=== PATIENT | male | born 1950 | race Caucasian/White ===

== ENCOUNTER 2020-05-18 09:08 | Emergency (ER) | payer MEDICARE, BC, SELFPAY ==
--- NOTE | 2020-05-18 09:08 | W.ED.GENAD ---
Discharge Plan Disposition Patient Disposition: HOME Condition: Good Discharge Details Chief Complaint: Orthopedic Clinical Impression: Rupture of left quadriceps tendon Primary Care Provider: Jovon Sifuentes ED Provider: Neelima Martin Home Meds and New Rx's Prescriptions: New oxycodone 5 mg tablet 5 mg PO TID PRN (Reason: pain) Qty: 7 RF: 0 Continued acetaminophen [Tylenol] 325 MG tablet 650 mg PO Q6H PRN RF: 0 tamsulosin [Flomax] 0.4 MG capsule 0.4 mg PO DAILY RF: 0 aspirin [Aspirin Low-Strength] 81 MG tablet,chewable 81 mg PO DAILY RF: 0 [id number] with vit D 1 EACH tablet 1 tab PO DAILY RF: 0 Eliquis 5 MG tablet 5 mg PO BID 30 Days RF: 0 Discharge Instructions Instructions: Tendon Rupture (ED) Additional Instructions: Please encourage rest, ice, elevation. You may use Tylenol to help with discomfort. If this is unsuccessful at alleviating your discomfort, you may augment with the oxycodone as prescribed. Please take this only as prescribed and do not drive will take this medicine. Please continue to use the knee immobilizer and use the walker to keep as much pressure off of this leg as possible. If you have any new or worsening symptoms please seek care urgently once again. Otherwise, please call orthopedics Wednesday to schedule follow-up appointment. Referrals: Gerald Plata MD [ [facility] STAFF PHYSICIAN] - Jovon Sifuentes MD [Primary Care Provider] - Medical Decision Making Patient is a pleasant 69-year-old male presenting to chief complaint of right shoulder and left knee pain. Patient reports a prior to arrival he was looking at his Josy when he missed stepped and fell down 4 steps. States that he struck the right elbow which caused his right shoulder to jam upward and also suffered a rotational injury to the left knee. Patient reports that he had the right shoulder injected with cortisone 3 days ago for presumed rotator cuff tear. He states that the pain he is experiencing today is very similar to the pain he had prior to the injection. Indicates the posterior aspect of his shoulder is area of pain. He denies any numbness or tingling. While there is ecchymosis on the medial aspect of his elbow he denies any pain in that area. In regard to the left knee, patient reports that this feels exactly the same as when he ruptured the quadriceps tendon on the contralateral side. Has not been able to extend his knee since the incident. Has been able to weight-bear but is found crutches report helpful. Again, he denies any numbness or tingling. Patient denies other injury the time of the incident. Not strike his head, no LOC, denies neck or back pain. No chest, abdomen, pelvis pain. Past medical history pertinent for A. fib, arthritis, BPH, TIA, hyperlipidemia, KORI. On exam, patient is resting comfortably. Exam of the right shoulder significant for limited range of motion with forward elevation. 2+ distal pulses, actually nerve testing is intact, sensation is intact. I am unable to perform provocative testing of the rotator cuff secondary to pain at this point. Will obtain x-ray to evaluate for any abnormality. Patient does have ecchymosis on the medial aspect of the right elbow but otherwise, exam is within normal limits and I do not see any evidence of fracture of the right elbow. Regard to left knee, patient has notable effusion that seems to be primarily suprapatellar. Patient is unable to straight leg raise. He has 2+ distal pulses, sensation is intact. Is able to flex and extend at the ankle. He is ligamentously intact with varus, valgus, anterior posterior drawer testing. Unable to flex past 80 degrees secondary to pain in the suprapatellar region. Will obtain x-rays of both areas demonstrate a fall. Patient did take Tylenol prior to arrival. He is anticoagulated for history of PE. We will augment his Tylenol with oxycodone. I do not see evidence of knee dislocation at this time. XR reviewed by radiologist: FINDINGS: Bones/joints: There is no evidence of acute fracture.There is no evidence of malalignment or dislocation. Degenerative changes in the glenohumeral joint and acromioclavicular joint Well corticated avulsion fracture adjacent to the humeral head Soft tissues: Normal. IMPRESSION: There is no evidence of acute fracture.There is no evidence of malalignment or dislocation. FINDINGS: Bones/joints: There is no evidence of acute fracture.There is no evidence of malalignment or dislocation. Chondrocalcinosis in the medial and lateral compartments Osteophyte formation of the superior and inferior pole of patella. The inferior osteophyte has been fractured. This could indicate patellar tendon injury in the appropriate clinical setting. Soft tissues: There is increased soft tissue density and swelling superior to the patella on the lateral. There is disruption of the normal architecture of the soft tissue. This may represent quadriceps tendon rupture. MRI may be helpful for further evaluation. IMPRESSION: 1. There is increased soft tissue density and swelling superior to the patella on the lateral. There is disruption of the normal architecture of the soft tissue. This may represent quadriceps tendon rupture. MRI may be helpful for further evaluation. 2. Osteophyte formation of the superior and inferior pole of patella. The inferior osteophyte has been fractured. This could indicate patellar tendon injury in the appropriate clinical setting. 3. There is no evidence of acute fracture.There is no evidence of malalignment or dislocation. Discussed these findings with the patient. Also contacted the patient's at his request. Patient has had bilateral Achilles tendon ruptures, contralateral quadricep tendon rupture. Patient will be fitted with a knee immobilizer. He was using crutches initially but states that this really exacerbates his shoulder pain. He does have a walker at home if he continues to remain nonweightbearing. Encourage rest, ice, elevation. He will continue with Tylenol as needed for discomfort. I will give a few oxycodone to use as needed for pain although patient has having that Tylenol will be sufficient. We discussed the risk associated with this medication, he will take only as prescribed will not drive will take this medicine. Can I also discussed Tammy testing. Has this patient will need to undergo surgical intervention, and has traveled to [place] recently, I feel that COVID-19 testing is appropriate at this time. He was given return precautions. All of his questions and concerns were addressed and he is in agreement this plan. HPI General Mode of arrival: wheelchair. Date/Time Provider Initiated Documentation: 05/18/20 09:08. Limitations to Documentation: no limitations. Information obtained by: patient and RN notes reviewed. History of Present Illness 69 year old M presents to the emergency department with the chief complaint of right shoulder and left knee pain, described as severe, with intensity rated at 8. Quality is described as aching, and is localized to the upper extremity (right shoulder) and lower extremity (left anterior knee). Patient reports no radiation. Patient started experiencing this minute(s) and it has been constant. Immobilization improves symptom(s), Movement worsens symptoms . Patient notes no other symptoms.. Patient did receive the following treatments prior to arrival, other (tylenol) Related Data Home Medications Medication Instructions Recorded Confirmed acetaminophen [Tylenol] 650 mg PO Q6H PRN tab-cap 04/08/15 05/18/20 aspirin [Aspirin Low-Strength] 81 mg PO DAILY tab-cap 04/08/15 05/18/20 tamsulosin [Flomax] 0.4 mg PO DAILY tab-cap 04/08/15 05/18/20 Eliquis 5 mg PO BID 30 Days tablet 03/29/17 05/18/20 [id number] with vit D 1 tab PO DAILY 03/29/17 05/18/20 oxycodone 5 mg PO TID PRN #7 tab 05/18/20 Previous Rx's Medication Instructions Recorded Eliquis 5 mg PO BID 30 Days tablet 03/29/17 oxycodone 5 mg PO TID PRN #7 tab 05/18/20 Allergies Allergy/AdvReac Type Severity Reaction Status Date / Time clindamycin AdvReac Unverified 05/18/20 09:18 ibuprofen AdvReac Unverified 05/18/20 09:18 Review of Systems Constitutional Constitutional: Reports as per HPI, Denies chills, Denies fatigue, Denies fever(s), Denies headache(s) and Denies weakness Eyes Eyes: Reports as per HPI, Denies blurry vision, Denies change in vision and Denies loss of vision ENT Ears, Nose, Mouth, and Throat: Denies abnormal hearing and Denies headache(s) Cardiovascular Cardiovascular: Reports as per HPI, Denies chest pain and Denies dyspnea Respiratory Respiratory: Reports as per HPI, Denies cough, Denies pain on inspiration, Denies pain with cough and Denies dyspnea Gastrointestinal Gastrointestinal: Reports as per HPI, Denies abdominal pain, Denies nausea and Denies vomiting Genitourinary Genitourinary: Reports as per HPI and Denies urinary incontinence Musculoskeletal Musculoskeletal: Reports as per HPI and Reports abnormal gait (difficulty with ambulation secondary to knee pain, using crutches) Integumentary/Breasts Skin/Breast: Reports as per HPI and Reports unusual bruising (ecchymosis right elbow) Neurologic Neurologic: Reports as per HPI, Denies abnormal hearing, Denies abnormal movements, Denies abnormal speech, Reports abnormal gait (difficulty with ambulation secondary to knee pain, using crutches), Denies headache(s), Denies lack of coordination, Denies localized weakness, Denies loss of vision, Denies seizure-like activity, Denies paresthesias and Denies weakness Endocrine Endocrine: Denies fatigue [facility] Social History Smoking/Tobacco Use Status: Former Tobacco Use Alcohol Intake: current Alcohol Intake frequency: a few times a week Drug use: Never Do you feel safe at home: Yes Do you feel safe in your relationship?: Yes Exam Const General: cooperative, healthy appearing, uncomfortable (uncomfortable with movement of LLE), no acute distress, well developed and well groomed Nutritional Appearance: well nourished and overweight Orientation: alert, awake and oriented x3 HENMT Head: normal to inspection, no palpable skull fracture, normocephalic and atraumatic Ears: hearing grossly normal bilaterally, external ears normal and TM's normal bilaterally General nose exam: external nose normal Mouth: oral mucosae normal, lip normal and tongue normal Throat: posterior oropharynx normal Eyes General: appearance normal, both eyes and all related structures Visual Lemon: normal visual lemon by confrontation Alignment and Position: alignment normal Periorbital: periorbital findings normal Eyelids: eyelids normal Conjunctivae: conjunctivae normal Pupils: PERRL EOM: EOM intact bilaterally Neck Neck: normal visual inspection, full ROM, no lymphadenopathy, no meningeal signs, trachea midline and supple Chest Chest: normal inspection of the chest, normal palpation of entire chest wall, no crepitus and no localized rib tenderness Resp Effort & Inspection: normal respiratory effort, able to speak in complete sentences and no respiratory distress Auscultation: clear to auscultation bilaterally, no rales, no rhonchi and no wheezes Cardio Rate: regular rate Rhythm: regular rhythm Heart Sounds: S1 normal and S2 normal GI Inspection: normal to inspection, no abdominal wall ecchymosis, no edema and non-distended Palpation: soft, no hepatosplenomegaly, not firm, no guarding, no pulsatile masses, not rigid and nontender Back/Spine/Pelvis Back: no CVA tenderness Cervical Spine: normal cervical lordosis and cervical ROM normal Thoracic/Lumbar Spine: thoracic and lumbar spine normal to inspection, thoraco-lumbar ROM normal, No thoraco-lumbar ROM limited, No thoraco-lumbar spasm and No thoracic spinal tenderness Pelvis: no pain with anterior-posterior compression and no pain with lateral compression Skin General skin exam: ecchymosis (right medial elbow, no pain over this area) Neuro General: patient alert, patient awake, patient oriented x3, gait normal, tone normal and moves all extremities Cranial Nerves: CN's II-XI intact bilaterally Cognition: normal cognition Speech: speech normal Gait: antalgic Motor: muscle tone normal throughout Sensory Exam: no sensory deficits noted (no saddle paresthesias) Extrem General: no pedal edema and no calf tenderness Right upper extremity: normal to inspection, normal capillary refill, no joint enlargement, shoulder/upper arm Details: normal to inspection, tenderness (posterior) and axillary nerve sensory function normal; no swelling, ROM limited (full ER and IR, FE limited to 90), no ecchymosis, no crepitus, no penetrating wound, no deformity and no unusual warmth, elbow/forearm Details: normal to inspection, normal ROM, ecchymosis and distal pulses intact; no tenderness, no swelling and no deformity, wrist Details: normal to inspection, normal ROM, normal vascular exam and radial pulse present; no tenderness and no swelling and hand Details: normal to inspection, normal capillary refill, neuromotor exam normal, neurosensory exam normal, normal ROM of fingers and no swelling; ROM limited Left lower extremity: normal capillary refill, hip/thigh Details: normal to inspection; no tenderness and no swelling and knee Details: abnormal to inspection Details: with a suprapatellar bulge (effusion), tenderness Location: of the patella Details: superiorly, swelling Location: of the patella, abnormal ROM Details: pain with passive ROM Details: with flexion and with range as follows (full extension, flexion to 80), knee ligament exam normal Details: anterior drawer test normal, posterior drawer test normal, valgus stress test normal and varus stress test normal; pain with axial loading and Iker's Test (unable to preform); inspection abnormal, no abrasions, no lacerations, no ecchymosis, no crepitus, no penetrating wound and no deformity; abnormal to inspection and abnormal ROM Psych Appearance: grossly normal and well kempt Mental Status: mental status grossly normal Speech and Movement: speech and movement normal
[2020-05-18 09:13] VITALS: BP 137/71; PULSE 71; RESP 18; TEMP 36.8; O2SAT 97
--- NOTE | 2020-05-18 09:30 | DI.RAD_ITS ---
EXAM: XR KNEE LT 4V AP,LAT,LIBBY,PAT CLINICAL HISTORY: fall, ? quad tendon rupture TECHNIQUE: COMPARISON: CR RIGHT KNEE LIMITED 1 OR 2 VIEW from 08/11/2016 FINDINGS: Four views were obtained. Note is made chondrocalcinosis of the tibiofemoral joints. There is marke d narrowing of the patellofemoral joint cartilaginous joint space consistent with degenerative change . There is no evidence of acute fracture. There is marked soft tissue swelling this superior to the patella on the lateral view with very poorl y defined quadriceps contour. The findings, in appropriate clinical setting, are suspicious for quad riceps tendon rupture. Additional evaluation with MRI may be considered. IMPRESSION:
--- NOTE | 2020-05-18 09:30 | DI.RAD_ITS ---
EXAM: XR SHOULDER RT COMPLETE 2+V CLINICAL HISTORY: fall TECHNIQUE: COMPARISON: No exams were available for comparison FINDINGS: Five views were obtained. There is no evidence of acute fracture or dislocation. There are prominen t hypertrophic degenerative changes involving acromioclavicular and glenohumeral joints. IMPRESSION:
[2020-05-18] MEDS: oxyCODONE 5 MG TAB PO (09:54)
--- NOTE | 2020-05-18 09:54 | NUR.NOTE ---
assessment and education charted by Dotty Harrington, diane Queen
--- NOTE | 2020-05-18 10:26 | DI.VRAD_ITS ---
PROCEDURE INFORMATION: Exam: XR Right Shoulder Exam date and time: 05/18/2020 10:22 AM Age: 69 years old Clinical indication: Other: Fall TECHNIQUE: Imaging protocol: XR Right shoulder. Views: 2 or more views. COMPARISON: No relevant prior studies available. FINDINGS: Bones/joints: There is no evidence of acute fracture.There is no evidence of malalignment or dislocation. Degenerative changes in the glenohumeral joint and acromioclavicular joint Well corticated avulsion fracture adjacent to the humeral head Soft tissues: Normal. IMPRESSION: There is no evidence of acute fracture.There is no evidence of malalignment or dislocation. Dictated and Authenticated by: Vanessa Garcia MD. Ordering:QUENTIN Ortez MD
--- NOTE | 2020-05-18 10:29 | DI.VRAD_ITS ---
PROCEDURE INFORMATION: Exam: XR Left Knee Exam date and time: 05/18/2020 10:22 AM Age: 69 years old Clinical indication: Other: Fall, ? quad tendon rupture TECHNIQUE: Imaging protocol: XR Left knee. Views: 4 or more views. COMPARISON: No relevant prior studies available. FINDINGS: Bones/joints: There is no evidence of acute fracture.There is no evidence of malalignment or dislocation. Chondrocalcinosis in the medial and lateral compartments Osteophyte formation of the superior and inferior pole of patella. The inferior osteophyte has been fractured. This could indicate patellar tendon injury in the appropriate clinical setting. Soft tissues: There is increased soft tissue density and swelling superior to the patella on the lateral. There is disruption of the normal architecture of the soft tissue. This may represent quadriceps tendon rupture. MRI may be helpful for further evaluation. IMPRESSION: 1. There is increased soft tissue density and swelling superior to the patella on the lateral. There is disruption of the normal architecture of the soft tissue. This may represent quadriceps tendon rupture. MRI may be helpful for further evaluation. 2. Osteophyte formation of the superior and inferior pole of patella. The inferior osteophyte has been fractured. This could indicate patellar tendon injury in the appropriate clinical setting. 3. There is no evidence of acute fracture.There is no evidence of malalignment or dislocation. Dictated and Authenticated by: Vanessa Garcia MD. Ordering:QUENTIN Ortez MD
[2020-05-18 11:14] VITALS: BP 94/69; PULSE 63; RESP 16; O2SAT 99
--- NOTE | 2020-05-18 11:14 | NUR.NOTE ---
L knee immobilizer applied and assisted pt getting dressed.
[2020-05-20 14:45] LABS: COVID-19 RT-PCR Result NEGATIVE (Negative)
--- NOTE | 2020-05-21 14:09 | NUR.NOTE ---
Nursing Note: Attempted to call patient to notify of negative covid results- no answer, unable to leave message.
--- NOTE | 2020-05-23 16:05 | NUR.NOTE ---
PT was notified that there covid test was negative Nursing Note:
== END 2020-05-18 11:21 | disposition home or self-care (01) ==
PROVIDERS: Emergency Provider Physician Assistant; PCP Internal Medicine
DX: S76.112A Strain of left quadriceps muscle, fascia and tendon, initial encounter (principal); M25.511 Pain in right shoulder; W10.8XXA Fall (on) (from) other stairs and steps, initial encounter; X50.9XXA Other and unspecified overexertion or strenuous movements or postures, initial encounter; Z79.01 Long term (current) use of anticoagulants; I48.91 Unspecified atrial fibrillation; Z11.59 Encounter for screening for other viral diseases
CPT/HCPCS: 29505; 99284; U0003; 73030; 73564; L1830

== ENCOUNTER → 2020-05-20 13:28 | Outpatient (BNVA) | payer MEDICARE, BC, SELFPAY | PROVIDERS: PCP Internal Medicine; Referring Provider Internal Medicine; Visit Provider Student in an Organized Health Care Education/Training Program | DX: S76.112A Strain of left quadriceps muscle, fascia and tendon, initial encounter (principal); S46.011A Strain of muscle(s) and tendon(s) of the rotator cuff of right shoulder, initial encounter; W10.8XXA Fall (on) (from) other stairs and steps, initial encounter; M17.12 Unilateral primary osteoarthritis, left knee | CPT/HCPCS: 99205; 99215; L1833 ==

== ENCOUNTER 2020-05-23 06:11 | Day surgery (SDC) | payer MEDICARE, BC, SELFPAY ==
[2020-05-23] VITALS (9 sets, daily range): BP systolic 111–137; BP diastolic 67–91; PULSE 51–60; RESP 13–22; TEMP 35.9–36.5; O2SAT 95–99
[2020-05-23] MEDS: Lactated Ringers 1,000 ML 100 ML IV (06:51)
[2020-05-23] MEDS: ceFAZolin 3,000 MG in Normal Saline 100 ML 200 MG IVPB (07:40)
[2020-05-23] MEDS: Normal Saline 20 ML VIAL (10:04)
--- NOTE | 2020-05-23 11:04 | PDOC.DSDIS_ITS ---
Discharge Plan Disposition Patient Disposition: HOME Condition: Stable Discharge Details Reason For Visit: L QUADRICEPS TENDON REPAIR Attending Provider: Gerald Plata Primary Care Provider: Jovon Sifuentes Home Meds and New Rx's Prescriptions: New tramadol 50 mg Tablet 50 mg PO Q8H PRN PRN (Reason: severe pain) Qty: 12 RF: 0 Continued tadalafil [Cialis] 10 mg tablet 10 mg PO DAILY PRNRF: 0 acetaminophen [Tylenol] 325 MG tablet 650 mg PO Q6H PRN RF: 0 tamsulosin [Flomax] 0.4 MG capsule 0.4 mg PO DAILY RF: 0 Suclblsi-Ahnpyq-[id number] with vit D 1 EACH tablet 1 tab PO DAILY RF: 0 Eliquis 5 MG tablet 5 mg PO BID 30 Days RF: 0 Discontinued oxycodone 5 mg tablet 5 mg PO TID PRN (Reason: pain) Qty: 7 RF: 0 Discharge Instructions Additional Instructions: Surgery: Left quadriceps tendon repair Activity: Weightbearing as tolerated with brace locked in full extension only for 8 weeks. Recommend crutches or walker to minimize fall risk. A physical therapy prescription will be provided separately today. Rehab protocol: Weeks 0-2: Maintain knee in full extension at all times. Isometric only quad contractions. No active knee extension for 6 weeks. Weeks 2-6: Brace unlocked for ROM exercises. Start at 0-30 degrees. Passive only knee extension (using other leg). Advance flexion 15 degrees per week with goal of 90 degrees flexion around week 6. After week 6: Start active-assisted then active knee extension around week 8; advance to full flexion by week 12. Concentric quad strengthening at 3 months (08/23/20) Eccentric quad strengthening at 4 months (09/23/20) Prescriptions: Resume home dose Eliquis tomorrow morning (Wednesday05/24/20) Tramadol 50 mg take 1 every 8 hours as needed for severe pain You may use [id number] Tylenol (acetaminophen) as needed for mild to moderate pain. These pain medications may be taken all at once or in different combinations as needed. Also, recommend Colace (docusate) as a stool softener as surgery and pain medicine cause constipation. Dressings: May remove Everton wrap and cotton wrap after 3 days. Leave Band-Aid in place until follow-up. Keep clean and dry at all times. Follow-up: 10-14 days with a physician dairy and food laboratory assistant and [address] Plata Please call the office during business hours with any questions or concerns. Let us know right away if you develop any redness, drainage, fevers, chest pain, or trouble breathing. Do not drink alcohol or drive for at least 24 hours after anesthesia. Referrals: Gerald Plata MD [ [facility] STAFF PHYSICIAN] - Discharge Orders Discharge Orders: Discharge Order (Routine); Ordered 05/23/20 Ordered By: Gerald Plata DS: Diagnosis Discharge Diagnosis (1) Rupture of left quadriceps tendon: Status: Acute
[2020-05-23] MEDS: HYDROmorphone 2 MG/ML VIAL IVP ×3 (11:15→11:36)
--- NOTE | 2020-05-23 11:22 | W.PM.OP ---
Date of service: 05/23/20 Time of Service: 11:04 Operative Note Operative Note DATE OF PROCEDURE: 05/23/20 PRE-OP DIAGNOSIS: Left quadriceps tendon rupture POST-OP DIAGNOSIS: same PROCEDURE: Left quadriceps tendon repair, CPT # 53378 SURGEON: Gerald Plata FOOD SERVICE ATTENDANT: Lakeshia Valencia ANESTHESIA: local and spinal ESTIMATED BLOOD LOSS: 50 PATHOLOGY: none sent TOURNIQUET TIME: 0 COMPLICATIONS: None Patient was transported to: PACU Patient's condition: stable Implants: 2x 4.75mm Arthrex SwiveLock suture anchors Indications: Please see complete medical record for details. Findings: Complete quadriceps tendon rupture with significant involvement of the medial and lateral retinaculum. Intact patellar tendon. Procedure Description: In the operating room, spinal anesthesia was induced. The patient was positioned supine on the operating room table. All bony prominences were well-padded. A tourniquet was placed loosely over padding high on the ipsilateral thigh. Preoperative antibiotics were administered. The left knee was prepped and draped in the usual sterile fashion. The correct patient, procedure, and side of the procedure were all verified prior to incision. The injury site was pre-injected with 30 cc of 0.25% bupivacaine with epinephrine. A longitudinal incision was made centered over the superior pole of the patella bridging the palpable defect in the quad tendon and for a few centimeters proximal. Sharp dissection was carried down to the level of the obvious quadriceps tendon rupture. Appropriate hemostasis was achieved. Frayed and scar tissue was removed bluntly and sharply from the injury site at the distal quad tendon and the medial and lateral margins. The superior pole the patella was cleaned of fibrous debris maintaining cortical bone and strong superior, medial and lateral remnant tissue to confirm appropriate quadriceps tendon reduction and for later repair augmentation. The quadriceps tendon was freed up of adhesions superficially and deeply bluntly. A Kayla clamp confirmed excellent excursion of the quadriceps tendon. The Arthrex pars jig was used to percutaneously place a proximal locking suture tape. A fiber tape was placed by hand in a Krak?w locking fashion more distally. Free ends of each suture tape and fiber tape were then brought out medially and laterally and centrally at the level of the rupture. Provisional traction on the sutures confirmed anatomic reduction to the oblique tears in the medial lateral retinaculum. The superior cleared off bone of the patella was then marked at the appropriate levels with a approximately 1 cm bone bridge for suture anchor placement. Taking care to direct the suture anchors centrally down the patella they were predrilled and then tapped at appropriate level. Medial sutures were used to reduce the tendon to the patella while the lateral sutures were passed through the eyelet of the suture anchor and secured me the suture anchor into bone with excellent purchase and fixation strength. With the tendon reduced, the medial suture anchor was then used to secure the medial sutures with again excellent fixation strength. The suture anchors were tested vigorously with no movement or loosening from bone. The lateral suture anchor eyelet #2 FiberWire sutures were then used to place a ripstop mattress suture in the distal lateral tendon. This was repeated for the medial suture anchor eyelet #2 FiberWire as well. Pair was provisionally tested to 90 degrees of flexion and there was minimal gapping however the lateralmost #2 FiberWire that had just been placed pulled out of the center of the swivel lock eyelet. The anchor remained firmly in place with its respective suture tape and fiber tape. There must of been a failure from the eyelet inside the suture anchor. The knots and #2 FiberWire were intact to tendon. This was cut and removed. A #2 FiberWire was used to place a similar ripstop horizontal mattress suture from the quadriceps tendon to strong intact periosteal and proximal remnant quadriceps tendon. The #2 FiberWire was also used to repair the strong retinacular, quadriceps tendon, and periosteal tissue adjacent to the suture anchors, superficially and immediately medially and laterally in a kbcjpx-hq-stfij interrupted fashion. The repair was tested again to almost 90 degrees flexion and found to be strong with no gapping and no suture anchor or suture failure. The needle and lateral gutters quadriceps tendon and retinacular repair was completed with #2 FiberWire and 0 Ethibond interrupted [id number] sutures. The wound was copiously irrigated with normal saline. An Exparel injection containing 20 cc of 266 mg liposomal bupivacaine diluted with 40 cc normal saline was then infiltrated about the surgical area. Deep tissue was closed using 0 Vicryl in a buried interrupted fashion. Superficial layers were irrigated with normal saline. Subcutaneous tissue was closed using 2-0 Monocryl in a buried interrupted fashion. Subcuticular layer was closed using 3-0 Monocryl in a running fashion. Skin glue was applied over the incision allowed to dry and then a Mepilex Band-Aid was applied. The knee was wrapped with sterile soft roll followed by nonsterile soft roll and Everton wrap from the foot up through the leg knee and thigh. Patient's previously obtained hinged knee brace was applied and adjusted to fit appropriately and locked in full extension. Flexion was set from 0 to 30 degrees maximum so that if it became unlocked by chance it would not allow too much flexion in his immediate postoperative period. The patient awoke from anesthesia without complication and was transferred to the recovery room in a stable condition.
[2020-05-23] MEDS: oxyCODONE 5 MG TAB PO (12:13)
== END 2020-05-23 14:10 | disposition home or self-care (01) ==
PROVIDERS: PCP Internal Medicine; Visit Provider Student in an Organized Health Care Education/Training Program
PROC: (CPT 27385; principal; 2020-05-23 07:30)
DX: S76.112A Strain of left quadriceps muscle, fascia and tendon, initial encounter (principal); W10.9XXA Fall (on) (from) unspecified stairs and steps, initial encounter; Z79.01 Long term (current) use of anticoagulants; I48.91 Unspecified atrial fibrillation
CPT/HCPCS: 27385; J0690; J2001; J2250; J2405; J2704; J3010

== ENCOUNTER → 2020-06-18 07:59 | Outpatient (BNVA) | payer MEDICARE, BC, SELFPAY | PROVIDERS: PCP Internal Medicine; Referring Provider Internal Medicine; Visit Provider Student in an Organized Health Care Education/Training Program | DX: S76.112D Strain of left quadriceps muscle, fascia and tendon, subsequent encounter (principal); X58.XXXD Exposure to other specified factors, subsequent encounter ==

== ENCOUNTER → 2020-07-16 08:30 | Outpatient (BNVA) | payer MEDICARE, BC, SELFPAY | PROVIDERS: PCP Internal Medicine; Referring Provider Internal Medicine; Visit Provider Student in an Organized Health Care Education/Training Program | DX: S76.112D Strain of left quadriceps muscle, fascia and tendon, subsequent encounter (principal); S46.011D Strain of muscle(s) and tendon(s) of the rotator cuff of right shoulder, subsequent encounter; X58.XXXD Exposure to other specified factors, subsequent encounter; M17.12 Unilateral primary osteoarthritis, left knee; Z98.890 Other specified postprocedural states ==

== ENCOUNTER 2020-07-30 18:46 | Outpatient (REF) | payer MEDICARE, BC, SELFPAY ==
[2020-07-30 22:00] LABS: Anion Gap 9.5 mmol/L (3-11); BUN 18 mg/dL (7-18); CO2 27.5 mmol/L (21.0-32.0); CREATININE 1.19 mg/dL (0.70-1.30); Calcium 9.6 mg/dL (8.5-10.1); Chloride 105 mmol/L (98-107); FREE T4 1.05 ng/dL (0.76-1.46); Glucose 83 mg/dL (74-106); Potassium 4.2 mmol/L (3.5-5.1); Sodium 142 mmol/L (136-145); TSH 6.67 uIU/mL (0.36-3.74)
[2020-07-31 20:00] LABS: PSA, Screening 4.5 ng/mL (0.0-6.5)
== END 2020-07-30 19:06 ==
LOC: NCHCN 18:46
PROVIDERS: PCP Internal Medicine; Visit Provider Internal Medicine
DX: E03.9 Hypothyroidism, unspecified (principal); N40.0 Benign prostatic hyperplasia without lower urinary tract symptoms; Z12.5 Encounter for screening for malignant neoplasm of prostate
CPT/HCPCS: 80048; 84153; 84439; 84443

== ENCOUNTER → 2020-08-20 09:28 | Outpatient (BNVA) | payer MEDICARE, BC, SELFPAY | PROVIDERS: PCP Internal Medicine; Referring Provider Internal Medicine; Visit Provider Student in an Organized Health Care Education/Training Program | DX: S46.011D Strain of muscle(s) and tendon(s) of the rotator cuff of right shoulder, subsequent encounter (principal); S76.112D Strain of left quadriceps muscle, fascia and tendon, subsequent encounter; X58.XXXD Exposure to other specified factors, subsequent encounter | CPT/HCPCS: 99214 ==

== ENCOUNTER 2020-08-29 02:14 | Outpatient (CLI) | payer MEDICARE, BC, SELFPAY ==
--- NOTE | 2020-08-29 06:30 | DI.MRI_ITS ---
EXAM: MR UPPER JOINT RT WO CLINICAL HISTORY: Traumatic RCT,S46.011D. TECHNIQUE: Multiplanar multisequence MRI was performed. COMPARISON: CR,XR XR SHOULDER RT COMPLETE 2+V from 05/18/2020 FINDINGS: There is spurring at the AC joint which also shows fluid. There is fluid in the subacromial subdelt oid bursa as well as subcoracoid bursa. There is a full-thickness tear with retraction of the supras pinatus tendon to the level of the glenoid. Infraspinatus tendon is also torn and retracted to the l evel of the glenoid. There is approximately 50 percent muscular atrophy both supraspinatus and infra spinatus, Glutilia classification grade 3. The infraspinatus and subscapularis as well as biceps tend ons appear intact. There are degenerative changes at the glenohumeral joint and spurring of the grea ter and lesser tuberosities. IMPRESSION: Full-thickness tears with retraction of the supraspinatus and infraspinatus tendons as well as muscul ar atrophy. DATA REPOSITORY:
== END 2020-08-29 02:34 ==
PROVIDERS: PCP Internal Medicine; Visit Provider Student in an Organized Health Care Education/Training Program
DX: M75.121 Complete rotator cuff tear or rupture of right shoulder, not specified as traumatic (principal)
CPT/HCPCS: 73221

== ENCOUNTER → 2020-09-04 14:53 | Outpatient (BNVA) | payer MEDICARE, BC, SELFPAY | PROVIDERS: PCP Internal Medicine; Referring Provider Internal Medicine; Visit Provider Student in an Organized Health Care Education/Training Program | DX: S46.011D Strain of muscle(s) and tendon(s) of the rotator cuff of right shoulder, subsequent encounter (principal); X58.XXXD Exposure to other specified factors, subsequent encounter; M75.21 Bicipital tendinitis, right shoulder; M75.51 Bursitis of right shoulder; Z98.890 Other specified postprocedural states | CPT/HCPCS: 99214 ==

== ENCOUNTER 2020-10-08 01:50 | Outpatient (CLI) | payer MEDICARE, BC, SELFPAY ==
[2020-10-10 10:34] LABS: COVID-19 RT-PCR Result NEGATIVE (Negative)
== END 2020-10-08 02:10 ==
PROVIDERS: Student in an Organized Health Care Education/Training Program; PCP Internal Medicine; Visit Provider Student in an Organized Health Care Education/Training Program
DX: Z11.59 Encounter for screening for other viral diseases (principal); Z01.818 Encounter for other preprocedural examination
CPT/HCPCS: U0003

== ENCOUNTER 2020-10-11 11:39 | Day surgery (SDC) | payer MEDICARE, BC, SELFPAY ==
[2020-10-11] VITALS (8 sets, daily range): BP systolic 99–122; BP diastolic 50–70; PULSE 59–88; RESP 14–21; TEMP 36–36.5; O2SAT 90–98
[2020-10-11] MEDS: Lactated Ringers 1,000 ML 100 ML IV (12:48)
[2020-10-11] MEDS: ceFAZolin 3,000 MG in Normal Saline 100 ML 200 MG IVPB (14:17)
[2020-10-11] MEDS: EPINEPHrine 30 MG/30 ML VIAL (16:34)
[2020-10-11] MEDS: Bupivacaine 0.25% Pres-Free 30 ML VIAL (16:34)
[2020-10-11] MEDS: EPINEPHrine 1 MG/ML AMP pres-free (16:46)
--- NOTE | 2020-10-11 16:54 | PDOC.DSDIS_ITS ---
Discharge Plan Disposition Patient Disposition: HOME Condition: Stable Discharge Details Reason For Visit: Right shoulder surgery Attending Provider: Gerald Plata Primary Care Provider: Jvoon Sifuentes Home Meds and New Rx's Prescriptions: New naproxen 250 mg tablet 250 - 500 mg PO BID PRN (Reason: Moderate pain or swelling) Qty: 60 RF: 0 ondansetron 4 mg tablet,disintegrating 4 mg PO Q6H PRN (Reason: nausea or vomiting) Qty: 5 RF: 0 oxycodone 5 mg tablet 5 - 10 mg PO Q4H PRN (Reason: moderate to severe pain) Qty: 16 RF: 0 Continued tadalafil [Cialis] 10 mg tablet 10 mg PO DAILY PRNRF: 0 diazepam 5 mg tablet 5 mg PO ONCE PRN (Reason: Claustrophobia) Qty: 2 RF: 0 acetaminophen [Tylenol] 325 MG tablet 650 mg PO Q6H PRN RF: 0 tamsulosin [Flomax] 0.4 MG capsule 0.4 mg PO DAILY RF: 0 Eudokhsi-Ogcemc-BFO with vit D 1 EACH tablet 1 tab PO DAILY RF: 0 Eliquis 5 MG tablet 5 mg PO BID 30 Days RF: 0 melatonin 10 mg Tablet 20 mg PO HS PRNRF: 0 Discharge Instructions Additional Instructions: Surgery: Shoulder arthroscopy with massive rotator cuff repair, extensive debridement, and subacromial decompression. Activity: You should keep your arm at your side in a neutral position at all times except for physical therapy. Do not try to lift or raise your arm using your own muscles. You should use the sling whenever you are out of the house. You may have to adjust the abduction pillow or remove it for comfort. At home it is best to remove the sling and rest the arm on a pillow at your side or support the operative side with your other hand. You may allow the arm to dangle at your side. A physical therapy prescription will be sent electronically to begin in 2-3 weeks. Prescriptions: Resume home Eliquis dose 10/12/2020 in the evening (about 24 hours after surgery) Naproxen 250 mg take 1-2 every 12 hours with a meal as needed for moderate pain Oxycodone 5 mg take 1-2 every 4-6 hours as needed for severe pain You may use vpny-zmp-tpixsrt Tylenol (acetaminophen) as needed for mild pain. These pain medications may be taken all at once or in different combinations as needed. Also, recommend Colace (docusate) as a stool softener as surgery and pain medicine cause constipation. Dressings: Remove shoulder bandage after 3 days. Leave the sticky Steri-Strips in place until they fall off or remove them after you shower. Cover the incisions with Band-Aids or leave them open to air. You may shower after 5 days. Follow-up: 10-[address] Plata You may take off the leg compression stockings this evening at home. You may also leave them on a few days longer if you have a history of leg swelling or edema. Let us know right away if you develop any redness, drainage, fevers, chest pain, or trouble breathing. Do not drink alcohol or drive for at least 24 hours after anesthesia. Please call the office during business hours with any questions or concerns. Referrals: Gerald Plata MD [ [facility] STAFF PHYSICIAN] - Discharge Orders Discharge Orders: Discharge Order (Routine); Ordered 10/11/20 Ordered By: Gerald Plata DS: Diagnosis Discharge Diagnosis (1) Traumatic tear of right rotator cuff: Status: Acute (2) Bursitis of right shoulder: Status: Acute (3) Rupture of right proximal biceps tendon: Status: Acute
--- NOTE | 2020-10-11 17:08 | W.PM.OP ---
Date of service: 10/11/20 Time of Service: 16:54 Operative Note Operative Note DATE OF PROCEDURE: 10/11/20 PRE-OP DIAGNOSIS: Right: 1. Massive traumatic rotator cuff tear 2. LHB tendinopathy 3. Bursitis POST-OP DIAGNOSIS: other Right: 1. Massive traumatic rotator cuff tear 2. Proximal biceps tendon rupture 3. Bursitis PROCEDURE: Right: 1. Rotator cuff repair, CPT# 20933. This involved repair of the subscapularis and supraspinatus using anchors and sutures to reattach the rotator cuff back to the footprint of the lesser and greater tuberosity. 2. Extensive debridement, CPT# 93748. This involved using arthroscopic hand instruments, power instruments, and radiofrequency instruments to debride the stump remnant of the long head of the biceps tendon and debride areas of labral tearing, synovitis, and chondromalacia about the biceps groove, and greater and lesser tuberosities within the glenohumeral joint anteriorly, superiorly and posteriorly. 4. Subacromial decompression, CPT# 30904. This involved using arthroscopic power instruments and a radiofrequency wand to complete a bursectomy. The employment assistant was medically required in order to help assist in techniques above, which require positioning the arm, holding the arthroscope, and manipulating multiple instruments and sutures at the same time. This cannot be done without the help of an experienced employment assistant. SURGEON: Gerald Plata ADMINISTRATIVE ASSISTANT OFFICE MANAGER: Samm Wells ADMINISTRATIVE ASSISTANT OFFICE MANAGER: Mey Cherry ANESTHESIA: GETA, regional and local ESTIMATED BLOOD LOSS: 15 PATHOLOGY: none sent COMPLICATIONS: None Patient was transported to: PACU Patient's condition: stable Implants: Arthrex: 4.75mm SwiveLocks x 4 Indications: The patient was diagnosed with the above conditions and appropriately indicated for surgical intervention. Please see complete medical record for details. Findings: Exam under anesthesia: Nearly full symmetrical range of motion, no instability Glenohumeral joint: Profound synovitis. Moderate joint space narrowing and generalized chondromalacia. Long of the biceps tendon ruptured not visualized intra-articularly with a small stop remnant on the superior labrum. Anterior, superior, and posterior synovitis and degenerative labral tearing fraying. Large upper border retracted subscapularis tendon with comma tissue and involving the rotator cable to a full-thickness significantly retracted supraspinatus and infraspinatus tears. Subacromial space: Significant bursitis. Significantly retracted supraspinatus and infraspinatus rotator cuff tears with poor tissue quality and limited excursion. Procedure Description: In the operating room, general anesthesia was induced. Bilateral shoulders were examined. The patient was positioned in the beachchair position. All bony prominences were well-padded. Preoperative antibiotics were administered. The shoulder was prepped and draped in the usual sterile fashion. The correct patient, procedure, and side of the procedure were all verified prior to incision. Starting through the posterior portal a standard complete diagnostic arthroscopy was performed of the glenohumeral joint including inspection of the long head of the biceps, anterior and superior labrum, subscapularis tendon, supraspinatus and infraspinatus tendons, and axillary recess. The glenoid and humeral head cartilage as well as the posterior labrum were inspected from an anterior viewing portal. Significant findings and interventions noted above. Starting through the posterior portal, the arthroscope was directed into the subacromial space. A lateral 50 yard line lateral portal was created. A combination of power instruments and a radiofrequency ablator were used to debride bursitis anteriorly, posteriorly, and laterally. No bony acromioplasty was done given the pre-existing superior humeral migration.. The coracoacromial ligament was preserved. The bursectomy was completed viewing laterally and working from posteriorly and the rotator cuff was thoroughly inspected with findings noted above. Cannulas were inserted at the anterior lateral, posterior lateral, and lateral margins of the acromion. The rotator cuff tissue was carefully meticulously mobilized liberated from adhesions superiorly and inferiorly. It was debrided of nonstructural tissue and fraying. And the posterior rotator cuff at the most excursion although there was poor tissue quality throughout. The decision was made to perform a modified expanded speed fix type repair to a single row instead of a double row repair as a tissue would not be brought across the entirety of the footprint allowing for reduction and compression. The central supraspinatus had limited excursions in the medial articular margin the greater tuberosity. The subscapularis had moderate excursion across the lesser tuberosity. Starting anteriorly inverted horizontal mattress as well as ripstop fiber loop cinch stitches were placed in the subscapularis. Appropriate tension was placed for reduction and secured to a prepunched suture anchor. This was repeated more posteriorly for the anterior and posterior supraspinatus. Finally for the infraspinatus this was repeated with an additional FiberLink cinch for greater tissue fixation. There was good fixation of tendon tissue covering the entirety of the lesser to greater tuberosity medial articular margin. The repair was inspected for range of motion and found to be secure and stable. Posteriorly, the infraspinatus covered about 50% of the greater tuberosity. Anteriorly the majority lesser tuberosity was covered by subscapularis. The supraspinatus central and anteriorly only reached the medial footprint. The shoulder was drained of arthroscopic fluid. All portal sites were copiously irrigated. These incisions were closed using 3-0 Monocryl in a buried fashion, covered with Mastisol, Steri-Strips, Xeroform, dry gauze, and ABDs. The dressings were covered and secured with Medipore tape. The operative extremity was placed into a sling for immobilization. The patient awoke from anesthesia without complication and was transferred to the recovery room in a stable condition.
== END 2020-10-11 19:32 | disposition home or self-care (01) ==
LOC: SUR 16:54 → MS 18:17
PROVIDERS: PCP Internal Medicine; Visit Provider Student in an Organized Health Care Education/Training Program
PROC: (CPT 29827; principal; 2020-10-11 13:30)
DX: S46.011A Strain of muscle(s) and tendon(s) of the rotator cuff of right shoulder, initial encounter (principal); S46.111A Strain of muscle, fascia and tendon of long head of biceps, right arm, initial encounter; M75.51 Bursitis of right shoulder; M65.811 Other synovitis and tenosynovitis, right shoulder; M94.211 Chondromalacia, right shoulder; G89.18 Other acute postprocedural pain; X58.XXXA Exposure to other specified factors, initial encounter
CPT/HCPCS: 29827; 29823; 29826; C1713; 76942; L3670; J0131; J0171; J0690; J1100; J1885; J2001; J2370; J2405

== ENCOUNTER → 2020-10-23 13:19 | Outpatient (BNVA) | payer MEDICARE, BC, SELFPAY | PROVIDERS: PCP Internal Medicine; Referring Provider Internal Medicine; Visit Provider Student in an Organized Health Care Education/Training Program | DX: S76.112D Strain of left quadriceps muscle, fascia and tendon, subsequent encounter (principal); M75.21 Bicipital tendinitis, right shoulder; M75.51 Bursitis of right shoulder; X58.XXXD Exposure to other specified factors, subsequent encounter; Z98.890 Other specified postprocedural states ==

== ENCOUNTER → 2020-12-18 13:01 | Outpatient (BNVA) | payer MEDICARE, BC, SELFPAY | PROVIDERS: PCP Internal Medicine; Referring Provider Internal Medicine; Visit Provider Student in an Organized Health Care Education/Training Program | DX: Z47.89 Encounter for other orthopedic aftercare (principal); M75.21 Bicipital tendinitis, right shoulder; M75.51 Bursitis of right shoulder ==

== ENCOUNTER → 2021-02-12 12:53 | Outpatient (BNVA) | payer MEDICARE, BC, SELFPAY | PROVIDERS: PCP Internal Medicine; Referring Provider Internal Medicine; Visit Provider Student in an Organized Health Care Education/Training Program | DX: Z47.89 Encounter for other orthopedic aftercare (principal); M75.21 Bicipital tendinitis, right shoulder; M75.51 Bursitis of right shoulder | CPT/HCPCS: 99213 ==

== ENCOUNTER → 2021-06-18 12:55 | Outpatient (BNVA) | payer MEDICARE, BC, SELFPAY | PROVIDERS: PCP Internal Medicine; Referring Provider Internal Medicine; Visit Provider Student in an Organized Health Care Education/Training Program | DX: Z47.89 Encounter for other orthopedic aftercare (principal); M25.562 Pain in left knee | CPT/HCPCS: 99213 ==

== ENCOUNTER 2021-08-06 13:50 | Outpatient (REF) | payer MEDICARE, BC, SELFPAY ==
[2021-08-06 14:42] LABS: HCT 47.4 % (40.0-50.0); HGB 15.3 g/dL (13.5-17.5); MCH 30.8 pg (27.0-33.0); MCHC 32.3 % (32.0-36.0); MCV 95.4 fL (80-95); MPV 10.8 fL (8.0-11.0); Platelet Count 161 10^3/uL (130-400); RBC 4.97 10^6/uL (4.36-5.78); RDW 13.8 % (11.8-14.1); RDW-SD 49.1 fL; WBC 5.55 10^3/uL (4.4-10.8)
[2021-08-06 15:05] LABS: ALT 31 U/L (16-63); AST 19 U/L (15-37); Albumin 3.7 g/dL (3.4-5.0); Alkaline Phosphatase 97 U/L (46-116); Anion Gap 6.6 mmol/L (3-11); BUN 19 mg/dL (7-18); Bilirubin, Total 0.4 mg/dL (0.2-1.0); CO2 29.4 mmol/L (21.0-32.0); CREATININE 1.2 mg/dL (0.70-1.30); Calcium 9.3 mg/dL (8.5-10.1); Chloride 109 mmol/L (98-107); Estimated GFR 59.68 (mL/min/1.73m2); Glucose 89 mg/dL (74-106); Potassium 4.6 mmol/L (3.5-5.1); Sodium 145 mmol/L (136-145); TSH (W/Ref FT4) 5.59 uIU/mL (0.36-3.74)
[2021-08-06 15:23] LABS: FREE T4 0.86 ng/dL (0.76-1.46)
== END 2021-08-06 13:51 | disposition home or self-care (01) ==
LOC: NCHCN 13:50
PROVIDERS: PCP Internal Medicine; Visit Provider Family Medicine
DX: E03.9 Hypothyroidism, unspecified (principal); M19.90 Unspecified osteoarthritis, unspecified site; Z13.9 Encounter for screening, unspecified
CPT/HCPCS: 80053; 85027; 84439; 84443; 85025

== ENCOUNTER 2022-05-01 16:04 | Outpatient (REF) | payer MEDICARE, BC, SELFPAY ==
[2022-05-01 18:58] LABS: HCT 47.9 % (40.0-50.0); HGB 15.5 g/dL (13.5-17.5); MCH 30.8 pg (27.0-33.0); MCHC 32.4 % (32.0-36.0); MCV 95 fL (80-95); MPV 10.6 fL (8.0-11.0); Platelet Count 174 10^3/uL (130-400); RBC 5.03 10^6/uL (4.36-5.78); RDW 13.7 % (11.8-14.1); RDW-SD 47.8 fL; WBC 7.53 10^3/uL (4.4-10.8)
[2022-05-01 19:18] LABS: ALT 26 U/L (16-63); AST 23 U/L (15-37); Albumin 3.8 g/dL (3.4-5.0); Alkaline Phosphatase 103 U/L (46-116); Anion Gap 8.5 mmol/L (3-11); BUN 22 mg/dL (7-18); Bilirubin, Total 0.3 mg/dL (0.2-1.0); CO2 27.5 mmol/L (21.0-32.0); CREATININE 1.3 mg/dL (0.70-1.30); Calcium 9.2 mg/dL (8.5-10.1); Chloride 107 mmol/L (98-107); Estimated GFR 54.26 (mL/min/1.73m2); Glucose 106 mg/dL (74-106); Potassium 5.3 mmol/L (3.5-5.1); Sodium 143 mmol/L (136-145); TSH (W/Ref FT4) 7.62 uIU/mL (0.36-3.74)
[2022-05-01 19:40] LABS: FREE T4 0.84 ng/dL (0.76-1.46)
== END 2022-05-01 16:05 | disposition home or self-care (01) ==
LOC: NCHCN 16:04
PROVIDERS: PCP Internal Medicine; Visit Provider Family Medicine
DX: I48.91 Unspecified atrial fibrillation (principal); Z79.01 Long term (current) use of anticoagulants
CPT/HCPCS: 80053; 85027; 84439; 84443

== ENCOUNTER 2022-10-26 14:45 | Outpatient (REF) | payer MEDICARE, BC, SELFPAY ==
[2022-10-26 21:31] LABS: TSH (W/Ref FT4) 5.79 uIU/mL (0.36-3.74)
[2022-10-26 21:53] LABS: FREE T4 0.89 ng/dL (0.76-1.46)
== END 2022-10-26 14:46 | disposition home or self-care (01) ==
LOC: NCHCN 14:45
PROVIDERS: PCP Internal Medicine; Visit Provider Family Medicine
DX: E03.9 Hypothyroidism, unspecified (principal)
CPT/HCPCS: 84439; 84443

== ENCOUNTER 2023-05-03 22:06 | Outpatient (REF) | payer MEDICARE, BC, SELFPAY ==
[2023-05-03 23:05] LABS: HCT 43.9 % (40.0-50.0); HGB 14.8 g/dL (13.5-17.5); MCH 31.4 pg (27.0-33.0); MCHC 33.7 % (32.0-36.0); MCV 93 fL (80-95); MPV 10.6 fL (8.0-11.0); Platelet Count 185 10^3/uL (130-400); RBC 4.72 10^6/uL (4.36-5.78); RDW 13.3 % (11.8-14.1); RDW-SD 46.1 fL; WBC 6.45 10^3/uL (4.4-10.8)
[2023-05-03 23:20] LABS: ALT 28 U/L (16-63); AST 22 U/L (15-37); Albumin 3.6 g/dL (3.4-5.0); Alkaline Phosphatase 135 U/L (46-116); Anion Gap 12.9 mmol/L (3-11); BUN 22 mg/dL (7-18); Bilirubin, Total 0.4 mg/dL (0.2-1.0); CO2 24.1 mmol/L (21.0-32.0); CREATININE 1.3 mg/dL (0.70-1.30); Calcium 8.8 mg/dL (8.5-10.1); Chloride 105 mmol/L (98-107); Estimated GFR 58.01 (mL/min/1.73m2); Glucose 96 mg/dL (74-106); Potassium 4.1 mmol/L (3.5-5.1); Sodium 142 mmol/L (136-145)
[2023-05-04 19:11] LABS: PSA, Screening 84.1 ng/mL (<=6.5)
== END 2023-05-03 22:07 | disposition home or self-care (01) ==
LOC: NCHCN 22:06
PROVIDERS: PCP Internal Medicine; Visit Provider Family Medicine
DX: Z00.00 Encounter for general adult medical examination without abnormal findings (principal); I48.91 Unspecified atrial fibrillation; Z76.89 Persons encountering health services in other specified circumstances; H91.90 Unspecified hearing loss, unspecified ear
CPT/HCPCS: 80053; 84153; 85027

== ENCOUNTER → 2023-05-10 14:45 | Outpatient (BNVA) | payer MEDICARE, BC, SELFPAY | PROVIDERS: PCP Internal Medicine; Referring Provider Internal Medicine; Visit Provider Nurse Practitioner Gerontology | DX: R97.20 Elevated prostate specific antigen [PSA] (principal); N40.2 Nodular prostate without lower urinary tract symptoms; N40.0 Benign prostatic hyperplasia without lower urinary tract symptoms | CPT/HCPCS: 51798; 99214 ==

== ENCOUNTER → 2023-05-13 12:37 | Outpatient (BNVA) | payer MEDICARE, BC, SELFPAY | PROVIDERS: PCP Internal Medicine; Referring Provider Internal Medicine; Visit Provider Urology | DX: C61 Malignant neoplasm of prostate (principal) | CPT/HCPCS: 55700; 76872 ==

== ENCOUNTER 2023-05-13 13:36 | Outpatient (REF) | payer MEDICARE, BC, SELFPAY ==
--- NOTE | 2023-05-13 13:20 | PROST_PTH ---
PATIENT: Jose Bee LOC: [facility] U#:[id number] AGE/SX: 72/M ROOM: RE05/13/[address]: Dinesh Phelps MD : 1950 BED: DIS: 05/13/2023 SPEC #: [id number] RECD: 05/13/23 17:52 STATUS: MIKAYLA RE #: [id number] REJI: 05/13/23 13:[address]: Dinesh Phelps DEPT: Surgical Specimen RECD BY: Viviane Salmeron ENTERED: 05/13/23 17:53 SP TYPE: PROST OTHR DR: Jovon Sifuentes Tissues: 1 - PROSTATE NEEDLE BIOPSY 2 - PROSTATE NEEDLE BIOPSY 3 - PROSTATE NEEDLE BIOPSY 4 - PROSTATE NEEDLE BIOPSY 5 - PROSTATE NEEDLE BIOPSY 6 - PROSTATE NEEDLE BIOPSY 7 - PROSTATE NEEDLE BIOPSY 8 - PROSTATE NEEDLE BIOPSY 9 - PROSTATE NEEDLE BIOPSY 10 - PROSTATE NEEDLE BIOPSY 11 - PROSTATE NEEDLE BIOPSY 12 - PROSTATE NEEDLE BIOPSY Procedures: GROSS AND MICRO LEVEL 4 Comments: [id number]
== END 2023-05-13 13:37 | disposition home or self-care (01) ==
LOC: LBN 13:36
PROVIDERS: PCP Internal Medicine; Visit Provider Urology
DX: C61 Malignant neoplasm of prostate (principal); N42.32 Atypical small acinar proliferation of prostate
CPT/HCPCS: 88305

== ENCOUNTER → 2023-05-25 13:49 | Outpatient (BNVA) | payer MEDICARE, BC, SELFPAY | PROVIDERS: PCP Internal Medicine; Referring Provider Internal Medicine; Visit Provider Urology | DX: C61 Malignant neoplasm of prostate (principal) | CPT/HCPCS: 99215 ==

== ENCOUNTER → 2023-05-27 09:28 | Outpatient (BNVA) | payer MEDICARE, BC, SELFPAY | PROVIDERS: PCP Internal Medicine; Referring Provider Internal Medicine; Visit Provider Nurse Practitioner Gerontology | DX: C61 Malignant neoplasm of prostate (principal) | CPT/HCPCS: 96402; J9155 ==

== ENCOUNTER → 2023-05-28 11:00 | Outpatient (BNVA) | payer MEDICARE, BC, SELFPAY | PROVIDERS: PCP Internal Medicine; Referring Provider Internal Medicine; Visit Provider Urology | DX: T45.1X5A Adverse effect of antineoplastic and immunosuppressive drugs, initial encounter (principal); C61 Malignant neoplasm of prostate | CPT/HCPCS: 99213; J2930; 96372 ==

== ENCOUNTER 2023-06-04 00:20 | Outpatient (CLI) | payer MEDICARE, BC, SELFPAY ==
--- NOTE | 2023-06-04 06:45 | DI.NM_ITS ---
Exam(s) NM BONE SCAN WHOLE BODY GRP EXAM: NM BONE SCAN WHOLE BODY GRP CLINICAL HISTORY: ? mets,prostate ca,c61. TECHNIQUE: Injected Dose: 25 mCi Tc-99m MDP Delayed Images: 2-3 hours. COMPARISON: CT CT ABDOMEN PELVIS W from 06/04/2023 FINDINGS: Symmetric axial uptake. Bilateral renal excretion is identified. Innumerable areas of increased radio tracer uptake are seen in the axial and appendicular skeleton consistent with osseous metastatic dise ase. The kidneys are poorly visualized suggesting a super scan. IMPRESSION: Findings of diffuse osseous metastatic disease. DATA REPOSITORY:
[2023-06-04] MEDS: Barium Sulfate 2% W/V-Creamy Vanilla Smoothie 450 ML BTL 900 ML PO (09:58)
[2023-06-04 10:07] LABS: CREATININE 1.3 mg/dL (0.70-1.30); Estimated GFR 58.01 (mL/min/1.73m2)
--- NOTE | 2023-06-04 11:25 | DI.CT_ITS ---
Exam(s) CT ABDOMEN PELVIS W EXAM: CT ABDOMEN PELVIS W CLINICAL HISTORY: Prostate ca, c61,? mets TECHNIQUE: Imaging Protocol: Axial computed tomography images with coronal and sagittal reformatted images were created and reviewed CONTRAST MATERIAL: Intravenous: Omnipaque 350 Contrast volume:100 mL Oral: Yes COMPARISON: CT ABD PELVIS WITH CONTRAST from 03/26/2017 CT CHEST FOR PULMONARY EMBOLUS from 03/29/2017 FINDINGS: ABDOMEN: Lung Bases: There is scarring seen in the lung bases. Liver: Normal density. The tiny round density in the lateral aspect of the right lobe of the liver is unchanged. This likely reflects a benign lesion such as a cyst. No suspicious hepatic lesions are seen. Portal, Superior Mesenteric, and Splenic Veins: Unremarkable. Gallbladder and Biliary Tract: No radiodense calculus or dilation. Pancreas: Normal density, no abnormal calcifications or inflammatory process. Spleen: Normal. Adrenals: No masses seen. Kidneys: Normal size, contour and axis. No radiodense stones or obstructive uropathy. There are bilat eral simple renal cysts. No follow-up is recommended. Abdominal Aorta: Abdominal portion non-dilated. Atherosclerosis. Bowel: No obstruction or bowel wall thickening. Appendix is unremarkable. Peritoneal Cavity: No ascites, collection or mesenteric inflammatory response. No free air. Lymph Nodes: There are enlarged lymph nodes seen in the retroperitoneum. There also enlarged iliac c dulce lymph nodes. The largest aortocaval lymph node measures 1.9 cm. The largest left periaortic ly mph node measures 2 cm. There is a 1.6 cm left external iliac lymph node. Bones: There osseous sclerotic lesions consistent with metastatic disease. Soft Tissues: Unremarkable. PELVIS: Bladder: There is thickening of the wall of the urinary bladder. There is a moderate-sized diverticu lum at the anterior superior aspect of the urinary bladder. These findings have progressed since the CT scan from 03/26/2017. Reproductive Organs: The prostate gland is enlarged and impinges upon the base of the urinary bladder . Lymph Nodes: Within normal limits. Bones: Within normal limits for the patient's age. IMPRESSION: 1. Enlarged prostate gland. 2. Development of thickening of the wall of the urinary bladder and moderate sized diverticulum at th e anterior superior aspect of the bladder. This may be secondary to chronic broader outlet obstructi on. Infectious or inflammatory process cannot be excluded. Neoplasm should also be considered. 3. Osseous metastatic disease. 4. Retroperitoneal adenopathy. Suspicious for metastatic disease. RADIATION DOSE DELIVERED: 2,129.49mGy.cm Total DLP DATA REPOSITORY: All CT scans at this facility are submitted to the National Radiology Data Registry (NRDR) Dose Index Registry (DIR) with the [employer] ([employer]). RADIATION OPTIMIZATION: All CT scans at this facility use at least one of these dose optimization te chniques: automated exposure control; mA and/or kV adjustment per patient size (includes targeted exa ms where dose is matched to clinical indication); or iterative reconstruction.
[2023-06-04] MEDS: Omnipaque 350 MG/ML 500 ML BTL-Imaging package 100 ML IJ (11:32)
== END 2023-06-04 00:40 ==
LOC: DI 00:21
PROVIDERS: PCP Internal Medicine; Visit Provider Urology
DX: C61 Malignant neoplasm of prostate (principal); C79.51 Secondary malignant neoplasm of bone; N40.1 Benign prostatic hyperplasia with lower urinary tract symptoms; K68.9 Other disorders of retroperitoneum
CPT/HCPCS: 78306; 74177; 82565

== ENCOUNTER → 2023-06-11 14:40 | Outpatient (BNVA) | payer MEDICARE, BC, SELFPAY | PROVIDERS: PCP Internal Medicine; Referring Provider Internal Medicine; Visit Provider Urology | DX: C61 Malignant neoplasm of prostate (principal) | CPT/HCPCS: 99214 ==

== ENCOUNTER → 2023-07-01 07:45 | Outpatient (BNVA) | payer MEDICARE, BC, SELFPAY | PROVIDERS: PCP Internal Medicine; Referring Provider Internal Medicine; Visit Provider Nurse Practitioner Gerontology | DX: C61 Malignant neoplasm of prostate (principal) | CPT/HCPCS: 96402; J9217 ==

== ENCOUNTER → 2023-07-29 03:11 | Outpatient (CLI) | payer MEDICARE, BC, SELFPAY ==
[2023-07-29 12:15] LABS: Abs Immature Grans 0.01 10^3/uL (0.0-0.06); Absolute Eosinophil Count 0.11 10^3/uL (0.0-0.7); Absolute Monocyte Count 0.46 10^3/uL (0.1-0.8); Basophils % 1.9; Eosinophils % 2.1; HCT 45.5 % (40.0-50.0); HGB 15.3 g/dL (13.5-17.5); Immature Grans % 0.2; Lymphocytes % 36.7; MCH 30.6 pg (27.0-33.0); MCHC 33.6 % (32.0-36.0); MCV 91 fL (80-95); MPV 10.1 fL (8.0-11.0); Monocytes % 8.9; Neutrophils % 50.2; Platelet Count 168 10^3/uL (130-400); RDW 13.6 % (11.8-14.1); RDW-SD 45.8 fL; WBC 5.18 10^3/uL (4.4-10.8)
[2023-07-29 12:40] LABS: ALT 30 U/L (16-63); AST 21 U/L (15-37); Albumin 3.9 g/dL (3.4-5.0); Alkaline Phosphatase 372 U/L (46-116); Anion Gap 10.5 mmol/L (3-11); BUN 22 mg/dL (7-18); Bilirubin, Total 0.4 mg/dL (0.2-1.0); CO2 25.5 mmol/L (21.0-32.0); CREATININE 1.2 mg/dL (0.70-1.30); Calcium 9.5 mg/dL (8.5-10.1); Chloride 103 mmol/L (98-107); Estimated GFR 63.85 (mL/min/1.73m2); Glucose 115 mg/dL (74-106); Potassium 4.4 mmol/L (3.5-5.1); Sodium 139 mmol/L (136-145); Total Protein 7.9 g/dL (6.4-8.2)
[2023-07-29] MEDS: Normal Saline - Diluent 50 ML VIAL IJ (12:52)
[2023-07-29] MEDS: Omnipaque 350 MG/ML 500 ML BTL-Imaging package IJ (12:53)
--- NOTE | 2023-07-29 13:00 | DI.CT_ITS ---
Exam(s) CT CHEST W EXAM: CT CHEST W CLINICAL HISTORY: PROSTATE CANCER METS TO BONE C61, C79.51 TECHNIQUE: Imaging Protocol: Axial computed tomography images with coronal and sagittal reformatted images were created and reviewed CONTRAST MATERIAL: Intravenous: Omnipaque 350Contrast volume:70 mL. COMPARISON: CT CHEST FOR PULMONARY EMBOLUS from 03/29/[address] ABDOMEN PELVIS W from 06/04/2023 FINDINGS: Tracheobronchial tree: Patent where visualized. Pulmonary parenchyma: No consolidation or dominant measurable mass. No architectural distortion. Stab le tiny predominantly peripheral pulmonary nodules. The largest measures 6 mm and is associated with the right minor fissure. These are all unchanged compared to 03/29/2017. There is stable scarring i n the lateral aspect of the right lung base. Mediastinum and Ana: No dominant adenopathy or fluid collection. The esophagus is unremarkable. Thyroid gland: Unremarkable. Pleura: No effusion or pneumothorax. Heart: Mild cardiomegaly. Three-vessel coronary artery calcifications. No pericardial effusion. Aorta: Thoracic aorta non-dilated. Atherosclerosis. No evidence of dissection. Pulmonary arteries: The pulmonary arteries are inadequately opacified for evaluation of pulmonary emb yazan. Upper abdomen: Fatty infiltration of the liver. Stable bilateral renal cysts. Lymph nodes: Within normal limits. Bones: Diffuse osseous sclerotic lesions consistent with metastatic disease. Soft tissues: Unremarkable. IMPRESSION: 1. Diffuse osseous metastatic disease. 2. Stable pulmonary nodules. The largest measures 6 mm. 3. Coronary artery calcifications and atherosclerosis. RADIATION DOSE DELIVERED: 791.89mGy.cm Total DLP DATA REPOSITORY: All CT scans at this facility are submitted to the National Radiology Data Registry (NRDR) Dose Index Registry (DIR) with the [employer] ([employer]). RADIATION OPTIMIZATION: All CT scans at this facility use at least one of these dose optimization te chniques: automated exposure control; mA and/or kV adjustment per patient size (includes targeted exa ms where dose is matched to clinical indication); or iterative reconstruction.
[2023-08-02 16:22] LABS: Testosterone, Total 7.9 ng/dL (240-950)
[2023-08-02 16:35] LABS: PSA, Ultrasensitive 17.2 ng/mL (<= 6.5)
== END ==
PROVIDERS: PCP Internal Medicine; Visit Provider Internal Medicine
DX: C61 Malignant neoplasm of prostate (principal); C79.51 Secondary malignant neoplasm of bone; R91.8 Other nonspecific abnormal finding of lung field; I25.84 Coronary atherosclerosis due to calcified coronary lesion
CPT/HCPCS: 80053; 84153; 84403; 71260; 85025

== ENCOUNTER 2023-08-24 02:24 | Outpatient (CLI) | payer MEDICARE, BC, SELFPAY ==
[2023-08-24 11:01] LABS: Abs Immature Grans 0.21 10^3/uL (0.0-0.06); Absolute Basophil Count 0.09 10^3/uL (0.0-0.2); Absolute Eosinophil Count 0.02 10^3/uL (0.0-0.7); Absolute Lymphocyte Count 1.95 10^3/uL (1.2-3.4); Absolute Monocyte Count 0.76 10^3/uL (0.1-0.8); Absolute Neutrophil Count 6.24 10^3/uL (1.2-6.7); Eosinophils % 0.2; HCT 40.4 % (40.0-50.0); HGB 13.4 g/dL (13.5-17.5); Immature Grans % 2.3; MCH 30.5 pg (27.0-33.0); MCHC 33.2 % (32.0-36.0); MCV 92 fL (80-95); MPV 10.4 fL (8.0-11.0); Monocytes % 8.2; Neutrophils % 67.3; Nucleated RBC 0.3 % (0.0-0.3); Platelet Count 100 10^3/uL (130-400); RDW 14.3 % (11.8-14.1); WBC 9.27 10^3/uL (4.4-10.8)
[2023-08-24 11:39] LABS: ALT 24 U/L (16-63); AST 19 U/L (15-37); Albumin 3.2 g/dL (3.4-5.0); Alkaline Phosphatase 267 U/L (46-116); Anion Gap 8.7 mmol/L (3-11); BUN 15 mg/dL (7-18); Bilirubin, Total 0.3 mg/dL (0.2-1.0); CO2 25.3 mmol/L (21.0-32.0); CREATININE 1.2 mg/dL (0.70-1.30); Chloride 108 mmol/L (98-107); Estimated GFR 63.85 (mL/min/1.73m2); Glucose 108 mg/dL (74-106); Potassium 4.3 mmol/L (3.5-5.1); Sodium 142 mmol/L (136-145); Total Protein 6.7 g/dL (6.4-8.2)
[2023-08-27 14:04] LABS: Testosterone, Total <7.0 ng/dL (240-950)
== END 2023-08-24 02:25 | disposition home or self-care (01) ==
LOC: LBO 02:26
PROVIDERS: PCP Internal Medicine; Visit Provider Internal Medicine
DX: C61 Malignant neoplasm of prostate (principal); C79.51 Secondary malignant neoplasm of bone
CPT/HCPCS: 36415; 80053; 84153; 84403; 85025

== ENCOUNTER 2023-08-24 12:55 | Outpatient (REF) | payer MEDICARE, BC, SELFPAY ==
[2023-08-24 12:14] LABS: Bilirubin Negative (Negative); Blood Large (Negative); Clarity Cloudy (Clear); Glucose Negative (Negative); Ketones Negative (Negative); Leukocyte Esterase Negative (Negative); Nitrite Negative (Negative); Specific Gravity 1.025 (1.005-1.025); Urobilinogen 0.2 mg/dL (Up to 0.2); pH 5.5 (5-8)
[2023-08-24 12:27] LABS: Bacteria Moderate HPF (Negative); C & S Indicated? Yes; Casts Negative LPF (Negative); Crystals Negative HPF (Negative); Mucus Negative (Negative); RBC >50 HPF (0-2)
== END 2023-08-24 12:56 | disposition home or self-care (01) ==
LOC: LBN 12:55
PROVIDERS: PCP Internal Medicine; Visit Provider Internal Medicine
DX: C61 Malignant neoplasm of prostate (principal); C79.51 Secondary malignant neoplasm of bone; R31.9 Hematuria, unspecified
CPT/HCPCS: 81003; 81015; 87086

== ENCOUNTER 2023-08-31 22:02 | Outpatient (CLI) | payer MEDICARE, BC, SELFPAY ==
[2023-08-31 11:36] LABS: Abs Immature Grans 0.06 10^3/uL (0.0-0.06); Absolute Basophil Count 0.13 10^3/uL (0.0-0.2); Absolute Eosinophil Count 0.01 10^3/uL (0.0-0.7); Absolute Lymphocyte Count 1.71 10^3/uL (1.2-3.4); Absolute Monocyte Count 0.66 10^3/uL (0.1-0.8); Basophils % 2.1; Eosinophils % 0.2; HCT 40.4 % (40.0-50.0); HGB 13.3 g/dL (13.5-17.5); Lymphocytes % 27.7; MCH 30.5 pg (27.0-33.0); MCHC 32.9 % (32.0-36.0); MCV 93 fL (80-95); MPV 9.5 fL (8.0-11.0); Monocytes % 10.7; Neutrophils % 58.3; Platelet Count 253 10^3/uL (130-400); RBC 4.36 10^6/uL (4.36-5.78); RDW-SD 50.3 fL; WBC 6.17 10^3/uL (4.4-10.8)
[2023-08-31 11:53] LABS: ALT 23 U/L (16-63); AST 18 U/L (15-37); Albumin 3.2 g/dL (3.4-5.0); Alkaline Phosphatase 271 U/L (46-116); Anion Gap 6.3 mmol/L (3-11); BUN 19 mg/dL (7-18); Bilirubin, Total 0.3 mg/dL (0.2-1.0); CO2 27.7 mmol/L (21.0-32.0); CREATININE 1.2 mg/dL (0.70-1.30); Calcium 8.9 mg/dL (8.5-10.1); Chloride 107 mmol/L (98-107); Estimated GFR 63.85 (mL/min/1.73m2); Glucose 115 mg/dL (74-106); Potassium 4.1 mmol/L (3.5-5.1); Sodium 141 mmol/L (136-145); Total Protein 6.9 g/dL (6.4-8.2)
[2023-09-01 16:46] LABS: PSA, Ultrasensitive 1.6 ng/mL (<= 6.5)
[2023-09-04 16:06] LABS: Testosterone, Total <7.0 ng/dL (240-950)
== END 2023-08-31 22:03 | disposition home or self-care (01) ==
LOC: LBO 22:03
PROVIDERS: PCP Internal Medicine; Visit Provider Internal Medicine
DX: C61 Malignant neoplasm of prostate (principal); C79.51 Secondary malignant neoplasm of bone
CPT/HCPCS: 36415; 80053; 84153; 84403; 85025

== ENCOUNTER → 2023-09-02 14:21 | Outpatient (BNVA) | payer MEDICARE, BC, SELFPAY | PROVIDERS: PCP Family Medicine; Referring Provider Internal Medicine; Visit Provider Urology | DX: R31.0 Gross hematuria (principal); I26.99 Other pulmonary embolism without acute cor pulmonale; Z79.01 Long term (current) use of anticoagulants | CPT/HCPCS: 81003; 99213 ==

== ENCOUNTER 2023-09-21 01:57 | Outpatient (CLI) | payer MEDICARE, BC, SELFPAY ==
[2023-09-21 08:09] LABS: Abs Immature Grans 0.06 10^3/uL (0.0-0.06); Absolute Basophil Count 0.14 10^3/uL (0.0-0.2); Absolute Eosinophil Count 0.03 10^3/uL (0.0-0.7); Absolute Lymphocyte Count 1.77 10^3/uL (1.2-3.4); Absolute Monocyte Count 0.72 10^3/uL (0.1-0.8); Absolute Neutrophil Count 3.28 10^3/uL (1.2-6.7); Basophils % 2.3; Eosinophils % 0.5; HGB 12.9 g/dL (13.5-17.5); Lymphocytes % 29.5; MCH 31.2 pg (27.0-33.0); MCHC 33.1 % (32.0-36.0); MCV 94 fL (80-95); MPV 9.4 fL (8.0-11.0); Neutrophils % 54.7; Platelet Count 231 10^3/uL (130-400); RBC 4.13 10^6/uL (4.36-5.78); RDW 16.3 % (11.8-14.1); RDW-SD 55.8 fL
[2023-09-21 08:11] LABS: Bilirubin Negative (Negative); Blood Negative (Negative); Clarity Clear (Clear); Glucose Negative (Negative); Ketones Negative (Negative); Leukocyte Esterase Negative (Negative); Nitrite Negative (Negative); Specific Gravity >= 1.030 (1.005-1.025); Urobilinogen 0.2 mg/dL (Up to 0.2); pH 5.5 (5-8)
[2023-09-21 08:25] LABS: ALT 23 U/L (16-63); AST 18 U/L (15-37); Albumin 3.2 g/dL (3.4-5.0); Alkaline Phosphatase 202 U/L (46-116); BUN 16 mg/dL (7-18); Bilirubin, Total 0.4 mg/dL (0.2-1.0); CREATININE 1.2 mg/dL (0.70-1.30); Calcium 9.2 mg/dL (8.5-10.1); Chloride 109 mmol/L (98-107); Estimated GFR 63.85 (mL/min/1.73m2); Glucose 78 mg/dL (74-106); Sodium 143 mmol/L (136-145)
[2023-09-24 11:21] LABS: Testosterone, Total <7.0 ng/dL (240-950)
[2023-09-25 08:23] LABS: PSA, Ultrasensitive 0.42 ng/mL (<= 6.5)
== END 2023-09-21 01:58 | disposition home or self-care (01) ==
PROVIDERS: Urology; PCP Family Medicine; Visit Provider Internal Medicine
DX: R31.0 Gross hematuria (principal); C61 Malignant neoplasm of prostate
CPT/HCPCS: 36415; 80053; 84153; 84403; 81003; 85025

== ENCOUNTER 2023-10-12 02:26 | Outpatient (CLI) | payer MEDICARE, BC, SELFPAY ==
[2023-10-12 07:43] LABS: Abs Immature Grans 0.04 10^3/uL (0.0-0.06); Absolute Basophil Count 0.11 10^3/uL (0.0-0.2); Absolute Eosinophil Count 0.03 10^3/uL (0.0-0.7); Absolute Monocyte Count 0.87 10^3/uL (0.1-0.8); Absolute Neutrophil Count 3.98 10^3/uL (1.2-6.7); Basophils % 1.7; Eosinophils % 0.5; HCT 37.8 % (40.0-50.0); HGB 12.1 g/dL (13.5-17.5); Immature Grans % 0.6; Lymphocytes % 20.5; MCH 31.3 pg (27.0-33.0); MCV 98 fL (80-95); MPV 9.8 fL (8.0-11.0); Monocytes % 13.7; Platelet Count 210 10^3/uL (130-400); RBC 3.86 10^6/uL (4.36-5.78); RDW 17.6 % (11.8-14.1); WBC 6.33 10^3/uL (4.4-10.8)
[2023-10-12 08:01] LABS: ALT 22 U/L (16-63); AST 19 U/L (15-37); Albumin 3.1 g/dL (3.4-5.0); Alkaline Phosphatase 150 U/L (46-116); Anion Gap 7.6 mmol/L (3-11); BUN 20 mg/dL (7-18); Bilirubin, Total 0.4 mg/dL (0.2-1.0); CO2 26.4 mmol/L (21.0-32.0); CREATININE 1.2 mg/dL (0.70-1.30); Chloride 109 mmol/L (98-107); Estimated GFR 63.85 (mL/min/1.73m2); Glucose 115 mg/dL (74-106); Potassium 4.1 mmol/L (3.5-5.1); Sodium 143 mmol/L (136-145); Total Protein 6.4 g/dL (6.4-8.2)
[2023-10-13 18:58] LABS: PSA, Ultrasensitive 0.26 ng/mL (<= 6.5)
[2023-10-16 09:24] LABS: Testosterone, Total 7.2 ng/dL (240-950)
== END 2023-10-12 02:27 | disposition home or self-care (01) ==
PROVIDERS: PCP Family Medicine; Visit Provider Internal Medicine
DX: C61 Malignant neoplasm of prostate (principal)
CPT/HCPCS: 36415; 80053; 84153; 84403; 85025

== ENCOUNTER 2023-11-02 04:15 | Outpatient (CLI) | payer MEDICARE, BC, SELFPAY ==
[2023-11-02 08:44] LABS: Abs Immature Grans 0.03 10^3/uL (0.0-0.06); Absolute Basophil Count 0.12 10^3/uL (0.0-0.2); Absolute Eosinophil Count 0.03 10^3/uL (0.0-0.7); Absolute Lymphocyte Count 1.28 10^3/uL (1.2-3.4); Absolute Monocyte Count 0.78 10^3/uL (0.1-0.8); Absolute Neutrophil Count 2.21 10^3/uL (1.2-6.7); Basophils % 2.7; Eosinophils % 0.7; HCT 37.8 % (40.0-50.0); HGB 11.9 g/dL (13.5-17.5); Immature Grans % 0.7; Lymphocytes % 28.8; MCH 31.7 pg (27.0-33.0); MCHC 31.5 % (32.0-36.0); MCV 101 fL (80-95); MPV 9.5 fL (8.0-11.0); Monocytes % 17.5; Neutrophils % 49.6; Platelet Count 186 10^3/uL (130-400); RBC 3.75 10^6/uL (4.36-5.78); RDW 17.6 % (11.8-14.1); RDW-SD 65.1 fL; WBC 4.45 10^3/uL (4.4-10.8)
[2023-11-02 08:59] LABS: ALT 25 U/L (16-63); AST 22 U/L (15-37); Albumin 3.1 g/dL (3.4-5.0); Alkaline Phosphatase 125 U/L (46-116); Anion Gap 7.8 mmol/L (3-11); BUN 17 mg/dL (7-18); Bilirubin, Total 0.4 mg/dL (0.2-1.0); CO2 28.2 mmol/L (21.0-32.0); CREATININE 1.1 mg/dL (0.70-1.30); Calcium 8.9 mg/dL (8.5-10.1); Chloride 109 mmol/L (98-107); Estimated GFR 70.88 (mL/min/1.73m2); Glucose 101 mg/dL (74-106); Sodium 145 mmol/L (136-145); Total Protein 6.3 g/dL (6.4-8.2)
[2023-11-04 11:46] LABS: PSA, Ultrasensitive 0.18 ng/mL (<= 6.5)
[2023-11-04 21:20] LABS: Testosterone, Total <7.0 ng/dL (240-950)
== END 2023-11-02 04:16 | disposition home or self-care (01) ==
PROVIDERS: PCP Family Medicine; Visit Provider Internal Medicine
DX: C61 Malignant neoplasm of prostate (principal); C79.51 Secondary malignant neoplasm of bone
CPT/HCPCS: 36415; 80053; 84153; 84403; 85025

== ENCOUNTER 2023-11-23 04:42 | Outpatient (CLI) | payer MEDICARE, BC, SELFPAY ==
[2023-11-23 08:58] LABS: Abs Immature Grans 0.03 10^3/uL (0.0-0.06); Absolute Basophil Count 0.09 10^3/uL (0.0-0.2); Absolute Eosinophil Count 0.03 10^3/uL (0.0-0.7); Absolute Lymphocyte Count 1.32 10^3/uL (1.2-3.4); Absolute Monocyte Count 0.91 10^3/uL (0.1-0.8); Absolute Neutrophil Count 2.82 10^3/uL (1.2-6.7); Basophils % 1.7; Eosinophils % 0.6; HGB 11.8 g/dL (13.5-17.5); Immature Grans % 0.6; Lymphocytes % 25.4; MCH 32.2 pg (27.0-33.0); MCHC 31.9 % (32.0-36.0); MCV 101 fL (80-95); MPV 9.9 fL (8.0-11.0); Monocytes % 17.5; Neutrophils % 54.2; Platelet Count 203 10^3/uL (130-400); RBC 3.66 10^6/uL (4.36-5.78); RDW 17.2 % (11.8-14.1); RDW-SD 63.8 fL
[2023-11-23 09:19] LABS: ALT 20 U/L (16-63); AST 24 U/L (15-37); Alkaline Phosphatase 93 U/L (46-116); Anion Gap 9.8 mmol/L (3-11); BUN 20 mg/dL (7-18); Bilirubin, Total 0.5 mg/dL (0.2-1.0); CO2 25.2 mmol/L (21.0-32.0); CREATININE 1.1 mg/dL (0.70-1.30); Chloride 109 mmol/L (98-107); Estimated GFR 70.88 (mL/min/1.73m2); Glucose 83 mg/dL (74-106); Potassium 4.1 mmol/L (3.5-5.1); Sodium 144 mmol/L (136-145); Total Protein 6.2 g/dL (6.4-8.2)
[2023-11-24 16:52] LABS: PSA, Ultrasensitive 0.11 ng/mL (<= 6.5)
[2023-11-26 00:08] LABS: Testosterone, Total <7.0 ng/dL (240-950)
== END 2023-11-23 04:43 | disposition home or self-care (01) ==
PROVIDERS: PCP Family Medicine; Visit Provider Internal Medicine
DX: C61 Malignant neoplasm of prostate (principal); C79.51 Secondary malignant neoplasm of bone
CPT/HCPCS: 36415; 80053; 84153; 84403; 85025

== ENCOUNTER → 2023-12-15 02:12 | Outpatient (CLI) | payer MEDICARE, BC, SELFPAY ==
--- NOTE | 2023-12-15 | DI.NM_ITS ---
Exam(s) NM BONE SCAN WHOLE BODY GRP EXAM: NM BONE SCAN WHOLE BODY GRP CLINICAL HISTORY: C61 Prostate cancer metastatic to multiple sites. TECHNIQUE: Injected Dose: 25 mCi Tc-99m MDP Delayed Images: 4 is seen in the high right frontal bone. Hours COMPARISON: CT HEAD FACIALS WO from 02/25/2018 NM NM BONE SCAN WHOLE BODY GRP from 06/04/2023 FINDINGS: Has been dramatic improvement in the appearance of the skeleton. Almost all of the metastatic lesions in the skeleton have resolved. There is a remaining focus of focal uptake in the anterior aspect of what appears to be the right 5th or 6th rib. This was previously the area of most increased intense uptake. The intensity of uptake at this level is less than was evident on 06/04/2023. Another focus of increased uptake is again noted in the high right frontal bone of the skull, similar to the previous scan of 06/04/2023. The remainder of the skeleton exhibits normal osseous uptake. IMPRESSION: 1. Significant improvement when compared to the prior nuclear medicine bone scan of 06/04/2023, as de scribed above. DATA REPOSITORY:
[2023-12-15] MEDS: Barium Sulfate 2% W/V-Creamy Vanilla Smoothie 450 ML BTL PO ×2 (08:33→10:23)
[2023-12-15] MEDS: Omnipaque 350 MG/ML 100 ML BTL IJ (10:24)
[2023-12-15] MEDS: Normal Saline - Diluent 50 ML VIAL IJ (10:24)
--- NOTE | 2023-12-15 10:35 | DI.CT_ITS ---
Exam(s) CT CHEST/ABD/PEL W EXAM: CT CHEST/ABD/PEL W CLINICAL HISTORY: C61 Prostate cancer metastic to multiple sites. TECHNIQUE: Imaging Protocol: Axial computed tomography images with coronal and sagittal reformatted images were created and reviewed CONTRAST MATERIAL: Intravenous: Omnipaque 350 Contrast volume:100 ml Oral: Yes. Oral contrast was also administered for bowel opacification. COMPARISON: CT CHEST FOR PULMONARY EMBOLUS from 03/29/[address] ABDOMEN PELVIS W from 06/04/2023 FINDINGS: CHEST: LUNGS: There is a small subpleural 6-7 mm nodule in the right middle lobe which appears smaller than on the CT scan of 03/29/2017. There are no additional lung nodules evident. No pleural effusions. No findings in the trachea and mainstem bronchi. MEDIASTINUM: There is no hilar nor mediastinal adenopathy. No retrocrural adenopathy. CARDIAC: Heart size is normal. There is no pericardial effusion.Caliber of the thoracic aorta is wit hin normal limits. OSSEOUS: Diffuse osseous but noted involving all of the visualized bones of the thorax.. ABDOMEN: There is no ascites. LIVER: Small cyst in the right hepatic lobe is again noted. No new focal liver findings. No dilated intrahepatic ducts. GALLBLADDER/BILIARY: No obvious gallbladder pathology. CBD is not dilated. PANCREAS: No evidence of pancreatic mass nor dilatation of the pancreatic duct. SPLEEN: Spleen is not enlarged. There are no intrasplenic lesions. Splenic and portal veins are irizarry nt. ADRENALS: There are no significant adrenal masses. KIDNEYS: Benign cysts in the right kidney again noted.. There are findings in both kidneys which are other parapelvic cysts or hydronephrosis, difficult to delineate between the 2 without delayed image s to show the infundibulum I. The ureters below the UPJ levels are not dilated. ABDOMINAL AORTA: Abdominal aorta is not enlarged. LYMPH NODES: There has been significant improvement in the retroperitoneal and para-aortic adenopathy which appears to have resolved without significant remaining adenopathy on the present study. ABDOMINAL WALL: No evidence of significant anterior abdominal wall nor inguinal hernia. GI: There is no evidence of bowel obstruction. PELVIS: LYMPH NODES: There is no intrapelvic nor inguinal adenopathy. GI: No evidence of appendicitis.No evidence of sigmoid diverticulitis. URINARY BLADDER: Bladder is again noted be thick-walled and trabeculated. Small bilateral diverticuli . The pelvic ureters are not dilated.There are no radiopaque calculi in the bladder lumen. REPRODUCTIVE: Moderately enlarged prostate. There is no obturator adenopathy. Seminal vesicles appe ar unremarkable. OSSEOUS: Diffuse blastic osseous metastatic lesions throughout the bones of the pelvis and spine. IMPRESSION: 1. Compared to the prior CT scans listed above there has been significant improvement in the amount o f rxwpvewmemjxanf-fdny-nhrpcd adenopathy. This appears to have resolved. 2. There is a small 6- 7 millimeter nodule in the right middle lobe. This has decreased in size when compared to the most recent chest CT scan of March 2017. No other lung nodules evident. No pleural e ffusions nor intrathoracic adenopathy. 3. Cysts in the kidneys are again noted. However, the appearance of the kidneys also is that of hydr onephrosis but this is difficult to differentiate from parapelvic cysts without a delayed post-contra st sequence which shows the infundibular lie either dilated or not dilated and splayed over the parap elvic cysts. At this point cannot rule out hydronephrosis which would be at the UPJ levels, given th at the ureters are not dilated below the UPJ levels. Urinary bladder is again noted be thick-walled and trabeculated. 4. Prostate size slightly enlarged. No obturator adenopathy nor intrapelvic adenopathy. 5. There is diffuse blastic osseous metastatic disease throughout the bones of the chest, abdomen, a nd pelvis. This appears significantly increased when compared to prior CT scans. However, on today' s nuclear bone scan there has been dramatic improvement when compared to the prior nuclear bone scan of 06/04/2023. RADIATION DOSE DELIVERED: 3,253.21mGy.cm Total DLP DATA REPOSITORY: All CT scans at this facility are submitted to the National Radiology Data Registry (NRDR) Dose Index Registry (DIR) with the [employer] (A[employer]). RADIATION OPTIMIZATION: All CT scans at this facility use at least one of these dose optimization te chniques: automated exposure control; mA and/or kV adjustment per patient size (includes targeted exa ms where dose is matched to clinical indication); or iterative reconstruction.
== END ==
PROVIDERS: PCP Family Medicine; Visit Provider Internal Medicine
DX: C61 Malignant neoplasm of prostate (principal); R91.8 Other nonspecific abnormal finding of lung field
CPT/HCPCS: 74177; 78306; 71260; J3490

== ENCOUNTER 2023-12-21 03:12 | Outpatient (CLI) | payer MEDICARE, BC, SELFPAY ==
[2023-12-21 07:30] LABS: Abs Immature Grans 0.02 10^3/uL (0.0-0.06); Absolute Eosinophil Count 0.16 10^3/uL (0.0-0.7); Absolute Lymphocyte Count 1.35 10^3/uL (1.2-3.4); Absolute Monocyte Count 0.59 10^3/uL (0.1-0.8); Absolute Neutrophil Count 1.71 10^3/uL (1.2-6.7); Basophils % 2.5; Eosinophils % 4.1; HCT 38.1 % (40.0-50.0); HGB 12.2 g/dL (13.5-17.5); Immature Grans % 0.5; Lymphocytes % 34.4; MCH 32.8 pg (27.0-33.0); MCV 102 fL (80-95); Neutrophils % 43.5; Platelet Count 178 10^3/uL (130-400); RBC 3.72 10^6/uL (4.36-5.78); RDW-SD 61.2 fL; WBC 3.93 10^3/uL (4.4-10.8)
[2023-12-21 07:46] LABS: ALT 20 U/L (16-63); AST 17 U/L (15-37); Albumin 3.2 g/dL (3.4-5.0); Alkaline Phosphatase 98 U/L (46-116); Anion Gap 10.1 mmol/L (3-11); BUN 18 mg/dL (7-18); Bilirubin, Total 0.5 mg/dL (0.2-1.0); CO2 25.9 mmol/L (21.0-32.0); CREATININE 1.2 mg/dL (0.70-1.30); Calcium 9.1 mg/dL (8.5-10.1); Chloride 110 mmol/L (98-107); Estimated GFR 63.46 (mL/min/1.73m2); Glucose 121 mg/dL (74-106); Potassium 4.1 mmol/L (3.5-5.1); Sodium 146 mmol/L (136-145); Total Protein 6.1 g/dL (6.4-8.2)
[2023-12-23 11:34] LABS: PSA, Ultrasensitive 0.05 ng/mL (<= 6.5)
[2023-12-24 16:29] LABS: Testosterone, Total 8.3 ng/dL (240-950)
== END 2023-12-21 03:13 | disposition home or self-care (01) ==
PROVIDERS: PCP Family Medicine; Visit Provider Internal Medicine
DX: C61 Malignant neoplasm of prostate (principal); C79.51 Secondary malignant neoplasm of bone
CPT/HCPCS: 36415; 80053; 84153; 84403; 85025

== ENCOUNTER 2024-02-01 05:13 | Outpatient (CLI) | payer MEDICARE, BC, SELFPAY ==
[2024-02-01 07:56] LABS: Abs Immature Grans 0.01 10^3/uL (0.0-0.06); Absolute Basophil Count 0.04 10^3/uL (0.0-0.2); Absolute Eosinophil Count 0.14 10^3/uL (0.0-0.7); Absolute Lymphocyte Count 1.28 10^3/uL (1.2-3.4); Absolute Monocyte Count 0.32 10^3/uL (0.1-0.8); Absolute Neutrophil Count 1.85 10^3/uL (1.2-6.7); Basophils % 1.1; Eosinophils % 3.8; HCT 42.3 % (40.0-50.0); Immature Grans % 0.3; Lymphocytes % 35.2; MCH 31.7 pg (27.0-33.0); MCHC 33.1 % (32.0-36.0); MCV 96 fL (80-95); MPV 10.1 fL (8.0-11.0); Monocytes % 8.8; Neutrophils % 50.8; Platelet Count 144 10^3/uL (130-400); RBC 4.41 10^6/uL (4.36-5.78); RDW 12.8 % (11.8-14.1); RDW-SD 45.7 fL; WBC 3.64 10^3/uL (4.4-10.8)
[2024-02-01 08:20] LABS: ALT 24 U/L (16-63); AST 22 U/L (15-37); Albumin 3.4 g/dL (3.4-5.0); Alkaline Phosphatase 122 U/L (46-116); Anion Gap 10.4 mmol/L (3-11); BUN 19 mg/dL (7-18); Bilirubin, Total 0.5 mg/dL (0.2-1.0); CO2 25.6 mmol/L (21.0-32.0); CREATININE 1.1 mg/dL (0.70-1.30); Calcium 9.3 mg/dL (8.5-10.1); Chloride 108 mmol/L (98-107); Estimated GFR 70.44 (mL/min/1.73m2); Glucose 136 mg/dL (74-106); Sodium 144 mmol/L (136-145); Total Protein 6.7 g/dL (6.4-8.2)
[2024-02-02 17:44] LABS: PSA, Ultrasensitive 0.03 ng/mL (<= 6.5)
[2024-02-06 11:58] LABS: Testosterone, Total 7.4 ng/dL (240-950)
== END 2024-02-01 05:14 | disposition home or self-care (01) ==
PROVIDERS: PCP Family Medicine; Visit Provider Internal Medicine
DX: C61 Malignant neoplasm of prostate (principal)
CPT/HCPCS: 36415; 80053; 84153; 84403; 85025

== ENCOUNTER 2024-05-02 03:17 | Outpatient (CLI) | payer MEDICARE, BC, SELFPAY ==
[2024-05-02 13:16] LABS: Abs Immature Grans 0.02 10^3/uL (0.0-0.06); Absolute Basophil Count 0.06 10^3/uL (0.0-0.2); Absolute Lymphocyte Count 1.74 10^3/uL (1.2-3.4); Absolute Neutrophil Count 3.32 10^3/uL (1.2-6.7); Eosinophils % 3.4 %; HCT 41.1 % (40.0-50.0); HGB 13.9 g/dL (13.5-17.5); Immature Grans % 0.3 %; Lymphocytes % 29.3 %; MCH 31.1 pg (27.0-33.0); MCHC 33.8 % (32.0-36.0); MCV 92 fL (80-95); Monocytes % 10.1 %; Neutrophils % 55.9 %; Platelet Count 166 10^3/uL (130-400); RBC 4.47 10^6/uL (4.36-5.78); RDW 14.2 % (11.8-14.1); RDW-SD 47.9 fL; WBC 5.94 10^3/uL (4.4-10.8)
[2024-05-02 13:40] LABS: ALT 24 U/L (16-63); AST 16 U/L (15-37); Albumin 3.6 g/dL (3.4-5.0); Alkaline Phosphatase 123 U/L (46-116); Anion Gap 8.4 mmol/L (3-11); BUN 17 mg/dL (7-18); Bilirubin, Total 0.56 mg/dL (0.2-1.0); CO2 28.6 mmol/L (21.0-32.0); CREATININE 1.1 mg/dL (0.70-1.30); Calcium 9.4 mg/dL (8.5-10.1); Chloride 107 mmol/L (98-107); Estimated GFR 70.44 (mL/min/1.73m2); Glucose 95 mg/dL (74-106); Potassium 4.1 mmol/L (3.5-5.1); Sodium 144 mmol/L (136-145); Total Protein 6.9 g/dL (6.4-8.2)
[2024-05-03 17:16] LABS: PSA, Ultrasensitive 0.02 ng/mL (<= 6.5)
[2024-05-07 18:21] LABS: Testosterone, Total <7.0 ng/dL (240-950)
== END 2024-05-02 03:18 | disposition home or self-care (01) ==
PROVIDERS: PCP Family Medicine; Visit Provider Internal Medicine
DX: C61 Malignant neoplasm of prostate (principal); C79.51 Secondary malignant neoplasm of bone
CPT/HCPCS: 36415; 80053; 84153; 84403; 85025

== ENCOUNTER 2024-05-18 10:29 | Outpatient (RCR) | payer MEDICARE, BC, SELFPAY ==
--- NOTE | 2024-05-19 09:45 | HOLTER_ITS ---
APPROVED REPORT Conclusion This is a 48-hour Holter monitor Rhythm throughout was atrial fibrillation with an average heart rate of 57. Minimum was 48, maximum 107 There were rare ventricular ectopic beats There was no AV block, no pauses greater than 3 seconds There were no apparent patient symptoms
== END 2024-06-07 23:59 | disposition home or self-care (01) ==
LOC: CARDOPNVT 10:29
PROVIDERS: PCP Family Medicine; Visit Provider Family Medicine
DX: I48.91 Unspecified atrial fibrillation (principal)
CPT/HCPCS: 93227; 93225; 93226

== ENCOUNTER 2024-05-18 11:11 | Outpatient (REF) | payer MEDICARE, BC, SELFPAY ==
--- OUTSIDE RECORDS SUMMARY | 2024-05-18 11:25 | XMS_ITS | Clinical Summary ---
Author Organization Formerly [facility] Address [facility] [place] [address] Care Team Providers Care Public Health Director Name Role Phone Paulino Finley MD Primary Care Provider [phone] Allergies Active Allergy Reactions Criticality Noted Date Comments Clindamycin Other (See Comments) 04/27/2017 Memory issues. Ibuprofen Medium CIS - Nausea/Vomiting Medications Medication Sig Dispensed Refills Start Date End Date Status tamsulosin (FLOMAX) 0.4 mg Capsule, Sust. Release 24 hr Take 0.4 mg by mouth daily. Active acetaminophen (TYLENOL) 325 mg Tablet Take 2 tablets by mouth every 4 hours. 30 tablet 1 07/29/2017 Active Additional Information Patient taking differently:650 mg OralNIGHTLY, Reported on 11/23/2023 ELIQUIS 5 mg Tablet 2 times daily. 0 10/21/2017 Active glucosamine/chondr mclaughlin A sod (OSTEO BI-FLEX ORAL) Take by mouth 2 times daily. Active tadalafiL (CIALIS) 10 mg Tablet TAKE 1 TABLET BY MOUTH AT LEAST 1 HOUR PRIOR TO ANTICIPATING INTERCOURSE NEEDED 11/05/2020 Active cholecalciferol (Vitamin D3) 1,000 unit tablet Take by mouth daily. Active darolutamide (Nubeqa) 300 mg tablet Take 2 tablets by mouth 2 times daily. Please call clinic before starting medication 120 tablet 11 07/08/2023 Active prochlorperazine (Compazine) 10 mg tabletIndications: Prostate cancer metastatic to multiple sites Take 1 tablet by mouth every 6 hours as needed for Nausea. 15 tablet 08/10/2023 Active Additional Information Patient not taking.Reported on 08/31/2023 ondansetron (Zofran) 8 mg tabletIndications: Prostate cancer metastatic to multiple sites Take 1 tablet by mouth every 8 hours as needed for Nausea. 20 tablet 08/10/2023 Active Additional Information Patient not taking.Reported on 08/31/2023 calcium carbonate (CALCIUM 300 ORAL) Take 1 tablet by mouth daily. Active Active Problems Problem Noted Date Diagnosed Date Prostate cancer metastatic to multiple sites Malignant neoplasm of prostate metastatic to bon e 07/08/2023 KORI on CPAP 04/30/2017 Adult BMI 30+ 04/30/2017 Atrial fibrillation 04/26/2017 Overview (04/30/2017): March 2017: [place] [facility] Previously noted to be paroxysmal. No awareness. CHADS2-VASc=1 (age). Started on apixaban for PE Pulmonary embolism 04/15/2017 Overview (07/21/2017): Recurrent. Benign prostatic hyperplasia 04/15/2017 Carcinoma of base of tongue 04/07/2017 Overview (06/03/2017): cT3 N0 M0, p16(+), distant 28 P-Y smoking history A. ?relationship to globus sensation first noted 2007: negative exam and MRI B. Progressive R obstructive symptoms; R BOT tumor noted (Dr Conrad); EUA delayed d/t PE and anticoagulation C. Imaging and EUA showing R BOT tumor, ~2.5 cm, extending to lower pole tonsil and lateral pharyngeal wall; cN0; Bx: minimally keratinizing D. Treatment planning in progress 05/2017 Resolved Problems Problem Noted Date Diagnosed Date Resolved Date Acute respiratory failure 07/20/2017 Overview (07/20/2017): Worsening oxygenation. Encounters Date Type Department Care Team Description 05/09/2024 1:30 PM EDT Infusion Hematology Oncology at [address] [phone] Prostate cancer metastatic to multiple sites 05/09/2024 1:00 PM EDT Office Visit Hematology/Oncology at [address] [phone] Dmitry Bhatti MD Burns, Kimberly A, GILLIAN Malignant neoplasm of prostate metastatic to bone (Primary Dx); Androgen deprivation therapy; Fatigue, unspecified type; Prostate cancer metastatic to multiple sites 05/08/2024 Travel 03/27/2024 Telephone Hematology/Oncology at [address] [phone] Arsenio Halima Dotty from Last 3 Months Family History Medical History Relation Comments Parkinsonism Father Breast Cancer Maternal Aunt Esophageal Cancer Maternal Grandfather smoked ci gars Lung Cancer Paternal Aunt Relation Status Comments Father Maternal Aunt Maternal Grandfather Mother Paternal Aunt Social History Tobacco Use Types Packs/Day Years Used Date Smoking Tobacco: Former Cigarettes - 1995 Pipe Smokeless Tobacco: Never Comments:quit cigarettes in 1995 - but smoked occasional pipe Alcohol Use Standard Drinks/Week Comments Yes 0 (1 standard drink = 0.6 oz pur e alcohol) 1-2 drinks a week - liquor Sex and Gender Information Value Date Recorded Sex Assigned at Not on file Gender Identity Not on file Sexual Orientation Not on file Last Filed Vital Signs Vital Sign Reading Time Taken Comments Blood Pressure 121/63 05/09/2024 1:00 PM EDT Pulse 54 05/09/2024 1:00 PM EDT Temperature 36.1 ??C (97 ??F) 05/09/2024 1:00 PM EDT Respiratory Rate 16 05/09/2024 1:00 PM EDT Oxygen Saturation 98% 05/09/2024 1:00 PM EDT Inhaled Oxygen Concentration - - Weight 136.5 kg (301 lb) 05/09/2024 1:00 PM EDT Height 186.6 cm (6' 1.47) 05/09/2024 1:00 PM ED T Body Mass Index 39.21 05/09/2024 1:00 PM EDT Plan of Treatment Upcoming Encounters Date Type Department Care Team (Late st Contact Info) Description 08/01/2024 1:00 PM EDT Office Visit Hematology/Oncology at [address] [phone] Dmitry Bhatti MD [facility] HEMATOLOGY/ONCOLOGY [place] [id number] Ellen Mcrae, GILLIAN [facility] DR [place] [address] 08/01/2024 1:30 PM EDT Infusion Hematology Oncology at [address] [phone] Health Maintenance Due Date Last Done Comments CT Colonography 1949 Colonoscopy 1949 Colorectal Cancer Screening 1949 FIT DNA 1949 FIT 1949 Sigmoidoscopy (10 year) with FIT yearly 1949 Sigmoidoscopy 1949 Hepatitis C Screening 1967 Lipid Screening 1967 Tdap adult 1968 Tetanus vaccine 1968 Zoster vaccine (1 of 2) 1999 Advance Directive 2004 AAA Screen 2014 Pneumoccocal Vaccine: 65+ (1 of 1 - PCV) 2014 Covid-19 Vaccine (1 - 2022-2 4 season) 2023 Influenza (Flu) vaccine (1 o f 1 - Influenza standard series) 07/09/2024 Diabetes Screening (HgbA1C o r Glucose) Discontinued 07/08/2023, 07/29/2017, 07/28/2017, Additional history exists Procedures Procedure Name Priority Date/Time Associated Diagnosis Comments LAB SCAN 05/02/2024 12:00 AM EDT LAB SCAN 05/02/2024 12:00 AM EDT COMPREHENSIVE METABOLIC PANEL (NON-FASTING) Routine 07/08/2023 2:07 PM EDT Malignant neoplasm of prostate metastatic to bone from Last 3 Months or Most Recently Relevant to Health Maintenance Results * Scan Doc: Lab (05/02/2024 12:00 AM EDT) Only the most recent of2 resultswithin the time period is included. Narrative 05/02/2024 12:00 AM EDT Ordered by an unspecified provider. Scanning Provider MEDIA MGR SCAN EXT O RDR/RSLT * (ABNORMAL) Comprehensive metabolic panel (non-fasting) (07/08/2023 2:07 PM EDT) Glucose Lvl 73 65 - 199 mg/dL [facility] Comment:Diabetes: >=200 mg/d L plus symptoms BUN 16 10 - 20 mg/dL [facility] Creatinine 1.12 0.80 - 1.50 mg/dL [facility] Sodium 143 135 - 145 mmol/L [facility] Potassium 4.4 3.5 - 5.0 mmol/L [facility] Comment: Please note: ??Patients with WBC >100,000 may have falsely elevated Potassium levels. ??For accurate Potassium quantification in these patients send serum separator tube (gold top) for subsequent determinations. ??Contact the Clinical Chemistry Laboratory if there are any questions. Chloride 109(H) 98 - 107 mmol/L [facility] CO2 24 22 - 31 mmol/L [facility] Anion Gap 10 5 - 15 mmol/L [facility] Calcium 9.4 8.5 - 10.5 mg/dL [facility] Total Protein 7.2 6.1 - 8.0 g/dL [facility] Albumin 4.2 3.2 - 5.2 g/dL [facility] AST 17 0 - 39 unit/L [facility] ALT 17 0 - 55 unit/L [facility] Alk Phos 407(H) 40 - 130 unit/L [facility] Total Bilirubin 0.2 0.2 - 1.3 mg/dL [facility] Estimated GFR 69 >=60 mL/min/1. 73 m?? [facility] Comment: This patient's estimated GFR was calculated using the 2020 CKD-EPI equation. The estimated GFR can vary from the measured GFR by up to 30% in the absence of rapidly changing kidney function. Assessment of the estimated GFR is not appropriate when creatinine concentrations are rapidly changing. For clinical situations in which a more precise estimate of GFR is necessary, consider alternative methods of GFR estimation such as a 24-hour urine creatinine clearance. Assignment of CKD stage 1-5 for patients with an eGFR near the transition point between stages may be based on clinical assessment of muscle mass and symptoms in addition to eGFR. Blood 07/08/2023 2:07 PM EDT 07/08/2023 2:10 PM EDT Narrative Resulting Agency Comment Spec In Lab Dmitry Bhatti MD CHEMISTRY ORDERABLES [facility] [place] [address] from Last 3 Months or Most Recently Relevant to Health Maintenance Advance Directives Documents on File Type Date Recorded Patient Freight Clerk Expl anation Personal Freight Clerk 12/26/2018 9:00 AM [email or web address] bee - * Full Code (Latest Code Status on File) Date Activated Date Inactivated Comments 07/13/2017 8:52 PM 07/29/2017 3:40 PM Question Answer Comments Does patient have capacity to make decision: Yes * Full Code Date Activated Date Inactivated Comments 07/13/2017 7:30 PM 07/13/2017 8:52 PM Question Answer Comments Does patient have capacity to make decision: Yes * Full Code Date Activated Date Inactivated Comments 07/13/2017 7:05 AM 07/13/2017 7:30 PM Question Answer Comments Does patient have capacity to make decision: Yes * Full Code Date Activated Date Inactivated Comments 05/24/2017 9:04 AM 05/24/2017 2:54 PM Question Answer Comments Does patient have decision m aking capacity? Yes, order is based on Patient wishes. Care Teams Public Health Director Relationship Specialty Start Date End Date Paulino Finley MD [address] [place] [id number] PCP - General Emergency Medicine 09/11/21
--- OUTSIDE RECORDS SUMMARY | 2024-05-18 11:25 | XMS_ITS | Encounter Summary ---
Author Organization Formerly [facility] [place] [address] Care Team Providers Care Fountain Dispenser Name Role Phone Paulino Finley MD Primary Care Provider [phone] Encounter Details Date Type Department Care Team (Late Contact Info) Description 01/05/2024 Orders Only Hematology [place] [address] Braeden Brown [facility] [place] Hematology/[place] [address] Prostate cancer metastatic to multiple sites Social History Tobacco Use Types Packs/Day Years Used Date Smoking Tobacco: Former Cigarettes 1 27 1 969 - 1995 Pipe Smokeless Tobacco: Never Comments:quit cigarettes in 1995 - but smoked occasional pipe Alcohol Use Standard Drinks/Week Comments Yes 0 (1 standard drink = 0.6 oz pur e alcohol) 1-2 drinks a week - liquor Sex and Gender Information Value Date Recorded Sex Assigned at Not on file Gender Identity Not on file Sexual Orientation Not on file documented as of this encounter Plan of Treatment Upcoming Encounters Date Type Department Care Team (Late Contact Info) Description 08/01/2024 1:00 PM EDT Office Visit Hematology/Oncology at [address] [phone] Dmitry Bhatti MD [facility] HEMATOLOGY/[place] [address] Ellen Mcrae APRN [facility] [place] [address] 08/01/2024 1:30 PM EDT Infusion Hematology Oncology at [address] [phone] documented as of this encounter Results * Research Venipuncture (01/10/2024 1:22 PM EST) Research Venipuncture Drawn [facility] Blood 01/10/2024 1:22 PM EST 01/10/2024 1:34 PM EST Narrative Resulting Agency Comment Spec In Lab Mey Tamez MD CHEMISTRY ORDERABLES [facility] [place] [address] documented in this encounter Visit Diagnoses Diagnosis Prostate cancer metastatic to multiple sites Malignant neoplasm of prostate documented in this encounter Care Teams Fountain Dispenser Relationship Specialty Start Date End Date Paulino Finley MD [address] [place] [address] PCP - General Emergency Medicine 09/11/21 documented as of this encounter
--- OUTSIDE RECORDS SUMMARY | 2024-05-18 11:25 | XMS_ITS | Encounter Summary ---
Author Organization [facility] [place] [address] Care Team Providers Care Ornamental Bronze Worker Name Role Phone Paulino Finley MD Primary Care Provider [phone] Reason for Visit * Reason Onset Date Comments Results 02/02/2024 Encounter Details Date Type Department Care Team (Late st Contact Info) Description 02/02/2024 Telephone Hematology [place] [address] Braeden Brown V [facility] Dr Hematology/[place] [address] Results Social History Tobacco Use Types Packs/Day Years Used Date Smoking Tobacco: Former Cigarettes 969 - 1995 Pipe Smokeless Tobacco: Never [...] on file documented as of this encounter Miscellaneous Notes * Telephone Encounter - Braeden Brown LG - 02/03/2024 4:18 PM EDT This test result was discussed with the patient by phone. A copy of the test results have been scanned in the medical record and sent to Jose. A summary of the results is provided below. Please beadvised that [place] law requires that all health care workers respect the confidentiality ofthis information and not pass it along to other health care providers, insurance companies, or individuals without the written permission of the patient. The [facility] welcomes any questions about these matters. Our phone number is: [phone]. On 01/10/2024 Jose was seen for genetic counseling and subsequently underwent genetic testing for a hereditary predisposition to cancers in eight major organ systems including breast, gynecologic,gastrointestinal, endocrine, genitourinary, skin, brain/nervous system, sarcoma and hematologic. Following are the results of this test. Result: [facility]'s CancerNext-Expanded +Planitax Panel showed no mutation was detected. This means that Jose does not carry a mutation in the genes detectable by this test. The following 71 genes were analyzed: AIP, ALK, APC, KATHARINA, BAP1, BARD1, BMPR1A, BRCA1, BRCA2, BRIP1, CDC73, CDH1, CDK4, CDKN1B, CDKN2A, CHEK2, DICER1, FH, FLCN, KIF1B, LZTR1, MAX, MEN1, MET, MLH1, MSH2, MSH6, MUTYH, NF1, NF2, NTHL1, PALB2, PHOX2B, PMS2, POT1, SDNDC3E, PTCH1, PTEN, RAD51C, RAD51D, RB1, RET, SDHA, SDHAF2, SDHB, SDHC,SDHD, SMAD4, SMARCA4, SMARCB1, SMARCE1, STK11, SUFU, PDHK829, TP53, TSC1, TSC2 and VHL (sequencing and deletion/duplication); AXIN2, CTNNA1, EGFR, EGLN1, HOXB13, KIT, MITF, MSH3, PDGFRA, POLD1 and POLE (sequencing only); EPCAM and GREM1 (deletion/duplication only) A variant of uncertain significance (VUS) was detected in the following two genes: KATHARINA, specifically c.1378A>C (p.T460P) SDHA, specifically c.596C>T (p.S199L) Interpretation: This test did not identify an underlying genetic cause for the personal history of metastatic prostate cancer and family history of breast cancer. Possible explanations for this test result include: Jose's cancer and the cancer in his family may be due to non genetic, environmental causes. There could be a mutation in Jose's family that Jose did not inherit. There could be mutations in other cancer genes not included in this test, or in genes yet to be discovered. There is a very small chance that a pathogenic variant/mutation could be missed due to limitations in the testing. Based on these results, Jose's children do not currently need genetic testing for hereditary cancer risk due to their paternal family history. If their mother's family history is of concern, we would recommend further evaluation of that side of the family by a genetic counselor. Additional germline genetic testing for Jose is not recommended at this time. Variant of Uncertain Significance (VUS) It is unclear at this time whether the KATHARINA or SDHA VUSs identified in Jose are cancer-associatedmutations or benign changes in the genes with no increased cancer risks. [employer] is continually collecting and analyzing their data, in an effort to reclassify these variants as either cancer-causing mutations or benign changes. It is important to remember that a vast majority of variants of uncertain significance are normal, benign changes in the gene. We will be contacted by the laboratory, in the future, if a reclassification is made and we would then notify Jose. It is important that Jose's phone number and mailing address stay updated in the [facility] system, in order for us to reach him in the future, should an amended reportbe issued. Family members should NOT be tested for the variant of uncertain significance identifiedin Jose in order to find out their own cancer risks. Screening Recommendations Based on genetic test results and personal and/or family history, we recommend: Colon cancer screening Baseline colorectal cancer screening starting by age 45-50 is important for everyone, regardless ofgenetic predisposition. Periodic colonoscopy screening as recommended by Jose's aluminizer. Skin cancer screening Skin cancer screening and sun protection are important for everyone, regardless of genetic predisposition. Consideration of routine dermatologic/skin exams, as recommended by Jose's primary care provideror dewaterer operator. documented in this encounter Plan of Treatment Upcoming Encounters Date Type Department Care Team (Late st Contact Info) Description 08/01/2024 1:00 PM EDT Office Visit Hematology/Oncology at [address] [phone] Dmitry Bhatti MD [facility] DR HEMATOLOGY/[place] [address] Ellen Mcrae APRN [facility] [place] [address] 08/01/2024 1:30 PM EDT Infusion Hematology Oncology at [address] [phone] documented as of this encounter Visit Diagnoses Not on filedocumented in this encounter Care Teams Ornamental Bronze Worker Relationship Specialty Start Date End Date Paulino Finley MD [address] [place] [address] PCP - General Emergency Medicine 09/11/21 documented as of this encounter
--- OUTSIDE RECORDS SUMMARY | 2024-05-18 11:25 | XMS_ITS | Encounter Summary ---
Author Organization [facility] [place] [address] Care Team Providers Care Education Diagnostician Name Role Phone Paulino Finley MD Primary Care Provider [phone] Encounter Details Date Type Department Care Team (Latest Contact Info) Description 01/09/2024 Travel Social History Tobacco Use Types Packs/Day Years [...] 1:00 PM EDT Office Visit Hematology/Oncology at [address] [phone] Dmitry Bhatti MD [facility] DR HEMATOLOGY/[place] [address] Ellen Mcrae APRN [facility] [place] [address] 08/01/2024 1:30 PM EDT Infusion Hematology Oncology at [address] [phone] documented as of this encounter Visit Diagnoses Not on filedocumented in this encounter Care Teams Education Diagnostician Relationship Specialty Start Date End Date Paulino Finley MD [address] [place] [address] PCP - General Emergency Medicine 09/11/21 documented as of this encounter
--- OUTSIDE RECORDS SUMMARY | 2024-05-18 11:25 | XMS_ITS | Encounter Summary ---
Author Organization [facility] [place] [address] Care Team Providers Care Windshield Technician Name Role Phone Paulino Finley MD Primary Care Provider [phone] Encounter Details Date Type Department Care Team (Latest Contact Info) Description 01/28/2024 Travel Social History Tobacco Use Types Packs/Day [...] 1:00 PM EDT Office Visit Hematology/Oncology at [address] [phone] Dmitry Bhatti MD [facility] DR HEMATOLOGY/[place] [address] Ellen Mcrae APRN [facility] [place] [place] [address] 08/01/2024 1:30 PM EDT Infusion Hematology Oncology at [address] [phone] documented as of this encounter Visit Diagnoses Not on filedocumented in this encounter Care Teams Windshield Technician Relationship Specialty Start Date End Date Paulino Finley MD [address] [place] [address] PCP - General Emergency Medicine 09/11/21 documented as of this encounter
--- OUTSIDE RECORDS SUMMARY | 2024-05-18 11:25 | XMS_ITS | Encounter Summary ---
Author Organization [facility] [place] [address] Care Team Providers Care Boiler Tester Name Role Phone Paulino Finley MD Primary Care Provider [phone] Encounter Details Date Type Department Care Team (Late Contact Info) Description 01/03/2024 Orders Only Hematology [place] [address] Kayley Lynne, [facility] [place] [address] Prostate cancer metastatic to multiple sites Social [...] 1:00 PM EDT Office Visit Hematology/Oncology at [address] [phone] Dmitry Bhatti MD [facility] HEMATOLOGY/[place] [address] Ellen Mcrae APRN [facility] [place] [address] 08/01/2024 1:30 PM EDT Infusion Hematology Oncology at [address] [phone] documented as of this encounter Visit Diagnoses Diagnosis Prostate cancer metastatic to multiple sites Malignant neoplasm of prostate documented in this encounter Care Teams Boiler Tester Relationship Specialty Start Date End Date Paulino Finley MD [address] [place] [address] PCP - General Emergency Medicine 09/11/21 documented as of this encounter
--- OUTSIDE RECORDS SUMMARY | 2024-05-18 11:25 | XMS_ITS | Encounter Summary ---
[place] [address] Care Team Providers Care Dairy Feed Sales Consultant Name Role Phone Paulino Finley MD Primary Care Provider [phone] Reason for Visit * Reason Comments Injections IM Lupron * Treatment/Therapy Plan Authorization (Routine) - Authorized Specialty Diagnoses / Procedures Referred By Contac t Referred To Contact Hematology and Oncology Diagnoses Prostate cancer metastatic to multiple sites Procedures TC LEUPROLIDE ACETATE 7.5MG, FOR DEPOST SUSPENSION (LUPRON DEPOT) [id number] LUPRON DEPOT Dmitry Bhatti MD [address] [place] [id number] Dmitry Bhatti MD [address] [place] [id number] Referral ID Status Reason Start Date Expiration Date V isits Requested Visits Authorized [id number] Authorized 07/08/2023 07/07/2024 99 101 Encounter Details Date Type Department Care Team (Late st Contact Info) Description 02/01/2024 10:00 AM EDT Infusion Hematology Oncology at [address] [phone] Prostate cancer metastatic to multiple sites Social History Tobacco Use Types Packs/Day Years Used Date Smoking Tobacco: Former Cigarettes 1 - 1995 Pipe Smokeless Tobacco: Never Comments:quit [...] on file documented as of this encounter Progress Notes * Nadira Son RN - 02/01/2024 10:00 AM EDT Infusion Note Diagnosis:Prostate Cancer Treatment: Lupron Injection Lupron injected in right gluteal Patient instructed on side effects of Lupron. Patient states understanding of teaching, Patient aware to call clinic with any questions or concerns. Plan: Return to clinic as scheduled. documented in this encounter Plan of Treatment Upcoming Encounters Date Type Department Care Team (Late st Contact Info) Description 08/01/2024 1:00 PM EDT Office Visit Hematology/Oncology at [address] [phone] Dmitry Bhatti MD [facility] DR HEMATOLOGY/[place] [address] Ellen Mcrae APRN [facility] [place] [address] 08/01/2024 1:30 PM EDT Infusion Hematology Oncology at [address] [phone] documented as of this encounter Visit Diagnoses Diagnosis Prostate cancer metastatic to multiple sites Malignant neoplasm of prostate documented in this encounter Administered Medications Inactive Administered Medications - up to 3 most recent administrations Medication Order MAR Action Action Date Dose Rate Site leuprolide (Lupron Depot) injection 22.5 mg 22.5 mg, Intramuscular, ONCE, 1 dose, On Wed02/01/24 at 1045, Last injection site was... leuprolide IM injection site: L Gluteal (08/10/2023 1:24 PM), Routine, This agent is restricted to outpatient use. Is this drug being given as an outpatient? Yes Given 02/01/2024 10:41 AM EDT 22.5 mg Right Gluteal documented in this encounter Care Teams Dairy Feed Sales Consultant Relationship Specialty Start Date End Date Paulino Finley MD [address] [place] [address] PCP - General Emergency Medicine 09/11/21 documented as of this encounter
--- OUTSIDE RECORDS SUMMARY | 2024-05-18 11:25 | XMS_ITS | Encounter Summary ---
[place] [address] Care Team Providers Care Control Center Operator Name Role Phone Paulino Finley MD Primary Care Provider [phone] Encounter Details Date Type Department Care Team (Latest Contact Info) Description 01/10/2024 1:14 PM EST - 01/10/2024 11:59 PM EST Hospital Encounter Hematology [place] [address] Prostate cancer metastatic to multiple sites Discharge Disposition: Home Social History Tobacco Use Types Packs/Day Years Used Date Smoking Tobacco: Former Cigarettes 9 - 1995 Pipe Smokeless Tobacco: Never Comments:quit [...] on file documented as of this encounter Medications at Time of Discharge Medication Sig Dispensed Refills Start Date End Date calcium carbonate (CALCIUM 300 ORAL) Take 1 tablet by mouth daily. prochlorperazine (Compazine) 10 mg tabletIndications:Pr ostate cancer metastatic to multiple sites Take 1 tablet by mouth every 6 hours as needed for Nausea. 15 tablet 08/10/2023 ondansetron (Zofran) 8 mg tabletIndications:Pr ostate cancer metastatic to multiple sites Take 1 tablet by mouth every 8 hours as needed for Nausea. 20 tablet 08/10/2023 cholecalciferol (Vitamin D3) 1,000 unit tablet Take by mouth daily. darolutamide (Nubeqa) 300 mg tablet Take 2 tablets by mouth 2 times daily. Please call clinic before starting medication 120 tablet 11 07/08/2023 tadalafiL (CIALIS) 10 mg Tablet TAKE 1 TABLET BY MOUTH AT LEAST 1 HOUR PRIOR TO ANTICIPATING INTERCOURSE NEEDED 11/05/2020 glucosamine/chondr mclaughlin A sod (OSTEO BI-FLEX ORAL) Take by mouth 2 times daily. ELIQUIS 5 mg Tablet 2 times daily. 0 10/21/2017 acetaminophen (TYLENOL) 325 mg Tablet Take 2 tablets by mouth every 4 hours. 30 tablet 1 07/29/2017 tamsulosin (FLOMAX) 0.4 mg Capsule, Sust. Release 24 hr Take 0.4 mg by mouth daily. diphenhydrAMINE (Benadryl) 25 mg capsule Take 25 mg by mouth daily. 05/09/2024 DM/p-ephed/acetamino ph/doxylam (NYQUIL ORAL) Take by mouth nightly as needed. 05/09/2024 documented as of this encounter Plan of Treatment Upcoming Encounters Date Type Department Care Team (Late st Contact Info) Description 08/01/2024 1:00 PM EDT Office Visit Hematology/Oncology at [address] [phone] Dmitry Bhatti MD [facility] DR HEMATOLOGY/[place] [address] Ellen Mcrae APRN [facility] [place] [address] 08/01/2024 1:30 PM EDT Infusion Hematology Oncology at [address] [phone] documented as of this encounter Procedures Procedure Name Priority Date/Time Associated Diagnosis Comments RESEARCH VENIPUNCTURE Routine 01/10/2024 1:22 PM EST Prostate cancer metastatic to multiple sites documented in this encounter Results * Research Venipuncture (01/10/2024 1:22 PM EST) Research Venipuncture Drawn [facility] Blood 01/10/2024 1:22 PM EST 01/10/2024 1:34 PM EST Narrative Resulting Agency Comment Spec In Lab Mey Tamez MD CHEMISTRY ORDERABLES [facility] [place] [address] documented in this encounter Visit Diagnoses Diagnosis Prostate cancer metastatic to multiple sites Malignant neoplasm of prostate documented in this encounter Care Teams Control Center Operator Relationship Specialty Start Date End Date Paulino Finley MD [address] [place] [address] PCP - General Emergency Medicine 09/11/21 documented as of this encounter
--- OUTSIDE RECORDS SUMMARY | 2024-05-18 11:25 | XMS_ITS | Encounter Summary ---
Author [facility] [place] [address] Care Team Providers Care Strategic Alliances Manager Name Role Phone Paulino Finley MD Primary Care Provider [phone] Encounter Details Date Type Department Care Team (Late Contact Info) Description 03/27/2024 Telephone Hematology/Oncology at [address] [phone] Halima Cesar Social History Tobacco Use Types Packs/Day Years Used Date Smoking Tobacco: Former Cigarettes 1 04 12 969 - 1995 Pipe Smokeless Tobacco: Never [...] encounter Miscellaneous Notes * Telephone Encounter - Halima Cesar - 03/27/2024 10:17 AM EDT Jose's called to change his appt as the will be on vacation 05/02/24. He is rescheduled for05/09/24 at 1pm with needs labs the week prior. They are aware of the new day and time documented in this encounter Plan of Treatment Upcoming Encounters Date Type Department Care Team (Late st Contact Info) Description 08/01/2024 1:00 PM EDT Office Visit Hematology/Oncology at [address] [phone] Dmitry Bhatti MD [facility] DR HEMATOLOGY/[place] [address] Ellen Mcrae APRN [facility] [place] [address] 08/01/2024 1:30 PM EDT Infusion Hematology Oncology at [address] [phone] documented as of this encounter Visit Diagnoses Not on filedocumented in this encounter Care Teams Strategic Alliances Manager Relationship Specialty Start Date End Date Paulino Finley MD [address] [place] [address] PCP - General Emergency Medicine 09/11/21 documented as of this encounter
--- OUTSIDE RECORDS SUMMARY | 2024-05-18 11:25 | XMS_ITS | Encounter Summary ---
Author Organization [facility] [place] [address] Care Team Providers Care Project Surveyor Name Role Phone Paulino Finley MD Primary Care Provider [phone] Encounter Details Date Type Department Care Team (Late st Contact Info) Description 05/09/2024 1:00 PM EDT Office Visit Hematology/Oncology at [address] [phone] Dmitry Steven MD [facility] [place] HEMATOLOGY/[place] [address] Ellen Mcrae APRN [facility] [place] [place] [address] Malignant neoplasm of prostate metastatic to bone (Primary Dx); Androgen deprivation therapy; Fatigue, unspecified type; Prostate cancer metastatic to multiple sites Social History Tobacco Use Types Packs/Day Years Used Date Smoking Tobacco: Former Cigarettes 1 27 969 - 1995 Pipe Smokeless Tobacco: Never [...] on file documented as of this encounter Last Filed Vital Signs Vital Sign Reading [...] Mass Index 39.21 05/09/2024 1:00 PM EDT documented in this encounter Progress Notes * Dmitry Steven MD - 05/09/2024 1:00 PM EDT Images from the original note were not included. 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 Phelps for consultation of metastatic prostate cancer. He initially presented with difficulties to urinate, abnormal LALA and PSA of 84 in April 2023.Was evaluated by urologist Dr. Phelps who performed prostate biopsy on May 13. Pathology revealed prostatic adenocarcinoma Marko 5+4. Staging CT abdomen and pelvis and bone scan demonstrated diffuse bony metastatic disease along with retroperitoneal and pelvic lymphadenopathy. He was started on degarelix on May 27 and was switched to Lupron 7.5 mg on July 01 and continues on lupron q 3months.He has completed docetaxel chemotherapy and continues darolutamide and Taxotere chemotherapy. His treatment history is as detailed below. Interval history 05/09/24 Jose is in clinic for follow-up on metastatic prostate cancer, Lupron injection and Nubeqa toxicity check. He feels easily tired. Complains of swelling on both legs but more swelling on the right leg now. Feels winded with exertion. He has no issues with his bowels. His hair is starting to grow back. He has intermittent shooting pains in his feet since the chemotherapy.Urination has improved significantly, however he does have nocturia 1-2x per night. Continues Flomax and follows with his PCP. No hematuria. No pain anywhere. No fever, chills, or signs of infection.ROS is otherwise negative. PMH: No interval changes since last visit Periorbital cellulitis, chalazion and blepharitis on doxycycline 2023 A-fib on Eliquis COVID-19 infection September 03, 2023 Gross hematuria in August 24, 2023 Social History: No interval changes since last visit He is here with his today. They live in [place]. Medications: Your Medications Accurate as of May 09, 2024 1:27 PM. If you have any questions, ask your nurse or doctor. Continued medications with new dosing Dose Details acetaminophen 325 mg tablet Commonly known as: Tylenol Take 2 tablets by mouth every 4 hours. What changed: when to take this 650 mg Quantity: 30 tablet Refills: 1 Continued medications, unchanged Dose Details CALCIUM 300 ORAL Take 1 tablet by mouth daily. 1 tablet Refills: 0 cholecalciferoL 1,000 unit tablet Commonly known as: Vitamin D3 Take by mouth daily. Refills: 0 darolutamide 300 mg tablet Commonly known as: Nubeqa Take 2 tablets by mouth 2 times daily. Please call clinic before starting medication 600 mg Quantity: 120 tablet Refills: 11 Eliquis 5 mg tablet 2 times daily. Generic drug: apixaban Refills: 0 ondansetron 8 mg tablet Commonly known as: Zofran Take 1 tablet by mouth every 8 hours as needed for Nausea. 8 mg Quantity: 20 tablet Refills: 0 OSTEO BI-FLEX ORAL Take by mouth 2 times daily. Refills: 0 prochlorperazine 10 mg tablet Commonly known as: Compazine Take 1 tablet by mouth every 6 hours as needed for Nausea. 10 mg Quantity: 15 tablet Refills: 0 tadalafiL 10 mg tablet Commonly known as: Cialis TAKE 1 TABLET BY MOUTH AT LEAST 1 HOUR PRIOR TO ANTICIPATING INTERCOURSE NEEDED Refills: 0 tamsulosin 0.4 mg capsule Commonly known as: Flomax Take 0.4 mg by mouth daily. 0.4 mg Refills: 0 Review of Systems: As in interval history PE: Constitutional: NAD HENT: Eyes: sclera white, in the area where he had the encapsulated stye lanced no erythema, exudate, or signs of infection. Nonicteric. Neck: No lymphadenopathy Cardiovascular: Regular rate and rhythm, hx of afib. Resp: Effort normal. No respiratory distress. CTA Abdominal: Soft, NT, ND, BS+ Extremities: Bilateral leg swelling 2+, improving BP 121/63 (Patient Position: Sitting) Pulse 54 Temp 36.1 ??C (97 ??F) (Temporal) Resp 16 Ht186.6 cm (6' 1.47) Wt (!) 136.5 kg (301 lb) SpO2 98% BMI 39.21 kg/m?? Pathology: Final Diagnosis A. PROSTATE, RIGHT BASE LATERAL, NEEDLE CORE BIOPSY: - Atypical small acinar proliferation (LOLITA), suspicious for minute focus (0.1 mm) of prostatic adenocarcinoma. B. PROSTATE, RIGHT BASE MEDIAL, NEEDLE CORE BIOPSY: - Prostatic adenocarcinoma, involving 1 of 1 core. - Steele score 4 + 5 = 9 (grade group 5), tumor extent 1 mm (15% of core). - Perineural invasion is identified. C. PROSTATE, RIGHT MID LATERAL, NEEDLE CORE BIOPSY: - Prostatic adenocarcinoma, involving 1 of 1 core. - Marko score 5 + 4 = 9 (grade group 5), tumor extent 10 mm (80% of core). D. PROSTATE, RIGHT MID MEDIAL, NEEDLE CORE BIOPSY: - Prostatic adenocarcinoma, involving 1 of 1 core. - Marko score 4 + 5 = 9 (grade group 5), tumor extent 9 mm (80% of core). E. PROSTATE, RIGHT APEX LATERAL, NEEDLE CORE BIOPSY: - Prostatic adenocarcinoma, involving 1 of 1 core. - Steele score 5 + 4 = 9 (grade group 5), tumor extent 16 mm (100% of core). - Perineural invasion is identified. F. PROSTATE, RIGHT APEX MEDIAL, NEEDLE CORE BIOPSY: - Prostatic adenocarcinoma, involving 1 of 1 core. - Steele score 5 + 4 = 9 (grade group 5), tumor extent 15 mm (95% of core). - Perineural invasion is identified. G. PROSTATE, LEFT BASE LATERAL, NEEDLE CORE BIOPSY: - Atypical small acinar proliferation (LOLITA), highly suspicious for minute focus (0.1 mm) of prostatic adenocarcinoma. H. PROSTATE, LEFT BASE MEDIAL, NEEDLE CORE BIOPSY: - Prostatic adenocarcinoma, involving 1 of 1 core. - Steele score 4 + 3 = 7 (grade group 3), 70% Steele pattern 4, tumor extent 6 mm (40% of core). - Cribriform Steele pattern 4 is present. I. PROSTATE, LEFT MID LATERAL, NEEDLE CORE BIOPSY: - Prostatic adenocarcinoma, involving 1 of 1 core. - Marko score 3 + 5 = 8 (grade group 4), tumor extent 4 mm (30% of core). J. PROSTATE, LEFT MID MEDIAL, NEEDLE CORE BIOPSY: - Prostatic adenocarcinoma, involving 1 of 1 core. - Marko score 4 + 5 = 9 (grade group 5), tumor extent 2 mm (15% of core). K. PROSTATE, LEFT APEX LATERAL, NEEDLE CORE BIOPSY: - Benign prostatic tissue. L. PROSTATE, LEFT APEX MEDIAL, NEEDLE CORE BIOPSY: - Prostatic adenocarcinoma, involving 1 of 1 core. - Marko score 5 + 4 = 9 (grade group 5), tumor extent 2 mm (20% of core). Labs: 05/02/2024 WBC 5.94, hemoglobin 13.9, platelet count 166, ANC 3.32, sodium 144, potassium 4.1, BUN 17, creatinine 1.1, calcium 9.4, TB 0.56, AST 16, ALT 24, alkaline phosphatase 123, total protein 6.9, albumin 3.6 12/21/2023 sodium 146, BUN 18, creatinine 1.2, potassium 4.1, calcium 9.1, AST 17, ALT 20, alkaline phosphatase 98, total protein 6.1, albumin 3.2, WBC 3.93, hemoglobin 12.2, platelet count 178, ANC 1.71. 11/23/2023 WBC 5.2, hemoglobin 11.8, platelet count 203, ANC 2.82, BUN 20, creatinine 1.1, calcium 9.0, TB 0.5, AST 24, ALT 20, alkaline phosphatase 93, total protein 6.2, albumin 3.0, 10/12/2023 WBC 4.45, hemoglobin 11.9, platelet count 186, ANC 2.21, creatinine 1.1, BUN 17, calcium 8.9, TB 0.4, AST 22, ALT 25, alkaline phosphatase 145, albumin 3.1, 10/12/2023 WBC 6.33, hemoglobin 12.1, platelet count 210, ANC 3.98, creatinine 1.2, BUN 20, calcium 9.0, TB 0.4, AST 19, ALT 22, alkaline phosphatase 150, albumin 3.1, 08/31/23 WBC 6.00 H/H 12.9/31.2 Plts 231 Na 143 K+ 4.0 BUN/Cr 16/1.2 Ca 9.2 Glu 78 T bili 0.4 AST 18 ALT 23 Alk phos 202 T prot 7.0 Alb 3.2 08/31/23 WBC 6.17 H/H 13.3/40.4 Plts 253 Na 141 K+ 4.1 BUN/Cr 19/1.2 Ca 8.9 Glu 115 T bili 0.3 AST 18 ALT 23 Alk phos 271 T prot 6.99 Alb 3.2 07/29/23 WBC 5..18 H?H 15.3/45.5 Plts 168 Na 139 K+ 4.4 BUN/Cr 22/1.2 Glu 115 tbili 0.4 AST21 ALT 30Alk phos 372 PSA 17.2 Test 7.9 Date PSA Testosterone 05/02/24 0.02 <7.0 12/21/23 0.05 11/23/23 0.11 <7 11/02/23 0.18 <7 10/12/23 0.26 <7 09/21/23 0.42 08/24/23 2.0 07/08/23 18.8 04/2023 84 08/10/23 17.2 08/24/22 2.0 <7 09/20/23 0.42 <7 10/12/23 0.26 Imagin12/15/23 CT chest abdomen pelvis: Impression: Compared to prior CT scan there has been significant improvement in amount of retroperitoneal para-aortic adenopathy. This appears to have resolved. Small 6-7 mm nodule in the right middle lobe. That cyst has decreased in size. No other lung nodules evident. No pleural effusions. Cyst in the kidney again noted. Prostate size slightly enlarged. No obturator adenopathy or intrapelvic adenopathy. There is diffuse blastic osseous metastatic disease throughout the bones in the chest, abdomen and pelvis. This appears significantly in increased when compared to prior CT scan. 12/15/2023 nuclear bone scan: Findings: There has been dramatic improvement in appearance of the skeleton. Almost all of the metastatic lesion in the skeleton have resolved. There is a remaining focus of follicle uptake on the day aspect that appears to be a right fifth or sixth rib. The intensity of uptake at this level is less than was evident on June 04, 2023. Another focus of increased uptake again noted in the right frontal bone of the skull, similar to previous scan in May 2023. Impression: Significant improvement when compared to prior nuclear medicine bone scan. 07/29/2023 CT chest: Impression: Diffuse osseous metastatic disease. Stable pulmonary nodules. The largest measures 6 mm. Coronary artery calcification atherosclerosis. 06/04/23 CT abdomen and pelvis: Impression: Enlarged prostate gland. Development of thickening of the wall of urinary bladder and moderate WMT:. It may be secondary to chronic bladder outlet obstruction. Osseous metastatic disease,retroperitoneal adenopathy, suspicious for metastatic disease. 06/04/2023 nuclear bone scan: Impression: Findings are diffuse osseous metastatic disease. Assessment and Plan: -Diagnosis: Prostatic adenocarcinoma metastatic to multiple bones and lymph nodes, high risk Treatment: -05/27/23 Degarelix 240 mg -07/01/23 - Lupron 7.5 mg -08/10/23 -11/23/23 6 cycles docetaxel 75 mg/m?? with Neulasta on pro -08/11/2023 to present: darolutamide 600 mg twice daily (08/24/23 to 09/23/2023 darolutamide was held for total of 2 weeks for hematuria which resolved). Jose Bee is 73 y.o.M with new diagnosis of metastatic prostate cancer, high risk. He started androgen deprivation therapy under care of Dr. Phelps. He was informed of the prognosis of metastatic prostate cancers with median survival between 4 and 5 years. He was informed of treatment options on top of androgen deprivation including chemotherapy with docetaxel versus combination of docetaxel with darolutamide or abiraterone/prednisone versus secondary hormonal therapy including abiraterone/prednisone, enzalutamide to apalutamide versus combination of secondary hormonal therapy and PARP inhibitor versus ADT alone which would be inferior to combination of chemotherapy and secondary hormonal therapy. Treatment recommended with chemotherapy with docetaxel 75 mg per metered squared with growth factorsupport every 3 weeks for total of 6 cycles and darolutamide 600 mg twice daily. On June 12, 2022, the Food and Drug Administration approved darolutamide (Nubeqa, [employer] tablets in combination with docetaxel for adult patients with metastatic hormone-sensitive prostate cancer (mHSPC). Efficacy was based on ARASENS ([id number]), a randomized, multicenter, double- blind, placebo-controlled clinical trial in 1306 patients with mHSPC. Patients were randomized to receive either darolutamide 600 mg orally twice daily plus docetaxel 75 mg/m2 intravenously administered every 3 weeks forup to 6 cycles or docetaxel plus placebo. All patients received a gonadotropin-releasing hormone analog concurrently or had a bilateral orchiectomy. The primary efficacy measure was overall survival (OS). Ytcw-ju-gqnx progression was an additional efficacy measure. Median OS was not reached (NR) (95% CI: NR, NR) in the darolutamide plus docetaxelarm and 48.9 months (95% CI: 44.4, NR) in docetaxel plus placebo arm (HR 0.68; 95% CI: 0.57, 0.80; p<0.0001). Treatment with darolutamide and docetaxel resulted in a statistically significant delay in fwlb-qb-uevq progression (HR 0.79; 95% CI: 0.66, 0.95; 1-sided p=0.006). The median age of patients was 67 years (41 to 89) and 17% were 75 years or older. Selected demographics were reported as follows: 52% White, 36% , 4% Black or , 7% /. Three percent of patients had M1a disease (spread to distant lymph nodes), 83% had M1b (spread to bones), and 14% had M1c (spread to organs). The most common adverse reactions experienced by patients (incidence ?10% with a ?2% increase over placebo with docetaxel) were constipation, decreased appetite, rash, hemorrhage, increased weight, and hypertension. The most common laboratory test abnormalities (?30%) were anemia, hyperglycemia, decreased lymphocyte count, decreased neutrophil count, increased AST, increased ALT, and hypocalcemia. The recommended darolutamide dose for mHSPC is 600 mg (two 300 mg tablets) taken orally, twice daily, with food until unacceptable toxicity or disease progression. Docetaxel, 75 mg/m2 intravenously is administered every 3 weeks for up to 6 cycles. The first dose of docetaxel should be administered within 6 weeks after the start of darolutamide treatment. He was informed of side effects of docetaxel which include but not limited to nausea, vomiting, fatigue, hair loss, fluid retention, numbness and tingling in extremities, pain, low blood counts requiring transfusion, allergic reaction, anaphylactic reaction, infection including life-threatening infection and . We discussed side effects of darolutamide including fatigue, elevated blood pressure, elevated liver enzymes, rash, seizures. He elected to proceed with darolutamide and docetaxel. Continues lupron. 08/31/23 He tolerated the first cycle reasonably well. He did have some blood in his urine and has an appointment with the urologist to further evaluate.this. he states that it has almost stopped now. he has stopped the darolutamide until he is seen. This is a possible side effect of the medication. His counts are acceptable for treatment. He will receive the next dose of docetaxel today 09/21/23 Proceed with Taxotere cycle #3/6 today. Tolerating treatment well. Darolutamide was on hold for hx of hematuria. Jose was to have cystoscopy but this was delayed due to his recent diagnosis of COVID. UA from today showed no evidence of blood in the urine. Recommend he hold darolutamide until we confirm if Urology is still recommending the cystoscopy. 10/12/23 Jose received 3 cycles of docetaxel along with darolutamide 600 mg twice daily. It does affect his stamina and he has exertional shortness of breath. We discussed option including continuation of current regimen to assess giving him extra we could do to recuperate from COVID-19 infection and chemotherapy versus reducing dose of docetaxel to 60 mg/m??. We discussed pros and cons. He is very pleased with good PSA response to chemo. He wants to continue current regimen. Will see him back in 3 weeks. 11/02/23 Jose is here today for cycle #4 docetaxel. He continues darolutamide 600mg BID. He continues to have fatigue and exertional shortness of breath, but otherwise is tolerating treatment well. PSA is responding to treatment. He elects to proceed with treatment. 11/23/2023 Jose completed 5 cycles of docetaxel. He experienced more fatigue, upper back weakness, eyes and a runny nose, he has gained weight due to fluid retention. Denies any pain. No fever or chills. We discussed options including discontinuation of chemotherapy versus dose reduction versus continuation of current dose of chemotherapy. Will proceed today with cycle 6 of chemotherapy with 20% dose reduction of docetaxel. I will restage him with CT and bone scan in about 2 months. I will see him within 1-2 weeks after scans. He will continue Nubeqa and Lupron. . 12/21/23 PSA at last visit was 0.11. Going down. Bone scan demonstrated dramatic response to the treatment with minimal uptake now. CT scan demonstrates diffuse sclerotic lesions consistent with stated disease but with all lymphadenopathy resolved. He still has some leg swelling. Overall, he has excellent response to treatment with ADT, docetaxel and darolutamide. He will continue maintenance darolutamide 600 mg twice daily and leuprolide 22.5 mg every 3 months. Will see him back in 6 weeks withblood work and Lupron. 02/01/24 Continues darolutamide 600mg BID. Continues lupron q 3 months. Tolerating treatment well. PSA last visit was decreased to 0.05. Leg swelling continues to resolve since completing chemotherapy. Energy level continues to improve. Continue darolutamide and lupron q 3months. Of note, he did have some questions about intermittent lupron therapy today, but at this time wants to continue on continuous ADT. 05/09/24 PSA 0.72 consistent with excellent PSA response to treatment. Testosterone in castrate range. 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 Contreras #Hematuria: Dr. Phelps recommended cystoscopy but patient declined and Jose has since restarted the darolutamide. He has had no additional episodes of hematuria. #fatigue: secondary to treatment. Improving #LE swelling: There is still swelling of both legs,? Related to A-fib #Eye infection: follows with Dr. Bah, Ophthalmology. Resolved s/p I&D. Off all antibiotics. Nosigns of infection on exam today. #Nocturia: 1-2x per night. Continues Flomax per PCP. #A.fib: Recommend to follow-up with PCP Dr. Finley Plan: Continue darolutamide 600 mg twice daily leuprolide 22.5 mg every 3 months due today Next visit with CBC, CMP, PSA, testosterone and Lupron in 3 months DMITRY STEVEN MD documented in this encounter Plan of Treatment Upcoming Encounters Date Type Department Care Team (Late st Contact Info) Description 08/01/2024 1:00 PM EDT Office Visit Hematology/Oncology at [address] [phone] Dmityr Steven MD [facility] DR HEMATOLOGY/[place] [address] Ellen Mcrae APRN [facility] [place] [address] 08/01/2024 1:30 PM EDT Infusion Hematology Oncology at [address] [phone] Scheduled Orders Name Type Priority Associated Diagnoses Orde r Schedule PSA (Ultrasensitive) Lab Routine Malignant neoplasm of prostate metastatic to bone As Needed for 4 Occurrences starting 05/09/2024 until 05/09/2025 CBC (with Diff) Lab Routine Malignant neoplasm of prostate metastatic to bone As Needed for 4 Occurrences starting 05/09/2024 until 05/09/2025 Comprehensive metabolic panel (non-fasting) Lab Routine Malignant neoplasm of prostate metastatic to bone As Needed for 4 Occurrences starting 05/09/2024 until 05/09/2025 Testosterone, total Lab Routine Malignant neoplasm of prostate metastatic to bone As Needed for 4 Occurrences starting 05/09/2024 until 05/09/2025 documented as of this encounter Visit Diagnoses Diagnosis Malignant neoplasm of prostate metastatic to bone- Primary Malignant neoplasm of prostate Androgen deprivation therapy Encounter for therapeutic drug monitoring Fatigue, unspecified type Prostate cancer metastatic to multiple sites Malignant neoplasm of prostate documented in this encounter Care Teams Project Surveyor Relationship Specialty Start Date End Date Paulino Finley MD [address] [place] [id number] PCP - General Emergency Medicine 09/11/21 documented as of this encounter
--- OUTSIDE RECORDS SUMMARY | 2024-05-18 11:25 | XMS_ITS | Encounter Summary ---
Author Organization [facility] [place] [address] Care Team Providers Care Paper Stacker Name Role Phone Paulino Finley MD Primary Care Provider [phone] Encounter Details Date Type Department Care Team (Latest Contact Info) Description 02/01/2024 Travel Social History Tobacco Use Types Packs/Day [...] 1:00 PM EDT Office Visit Hematology/Oncology at [address] [phone] Dmitry Bhatti MD [facility] DR HEMATOLOGY/[place] [address] Ellen Mcrae APRN [facility] [place] [address] 08/01/2024 1:30 PM EDT Infusion Hematology Oncology at [address] [phone] documented as of this encounter Visit Diagnoses Not on filedocumented in this encounter Care Teams Paper Stacker Relationship Specialty Start Date End Date Paulino Finley MD [address] [place] [address] PCP - General Emergency Medicine 09/11/21 documented as of this encounter
--- OUTSIDE RECORDS SUMMARY | 2024-05-18 11:25 | XMS_ITS | Encounter Summary ---
[place] [address] Care Team Providers Care Machine Adjuster Leader Case Trim Name Role Phone Paulino Finley MD Primary Care Provider [phone] Reason for Visit * Reason Comments Specialty Pharmacy Review Nubeqa 300mg t ablet Encounter Details Date Type Department Care Team (Late st Contact Info) Description 01/04/2024 Specialty [place] [address] Jeannie Villatoro, [facility] Social History Tobacco Use Types Packs/Day Years [...] as of this encounter Progress Notes * Jeannie Villatoro - 01/04/2024 11:59 PM EST The [facility] has completed a benefits investigation for Jose Bee to reviewtheir eligibility to fill at [facility]. Per patient's medication list they are prescribed Nubeqa 300mg tablet and the medication is able to be filled at the [facility], but the medication cost may not be financially viable. The patient is eligible to fill the medication through [facility] with a high copay. No PA required. Due to the high copay, the patient has been referred to [facility] for custodial engineer assistance. documented in this encounter Plan of Treatment Upcoming Encounters Date Type Department Care Team (Late st Contact Info) Description 08/01/2024 1:00 PM EDT Office Visit Hematology/Oncology at [address] [phone] Dmitry Bhatti MD [facility] DR HEMATOLOGY/[place] [address] Ellen Mcrae APRN [facility] [place] [address] 08/01/2024 1:30 PM EDT Infusion Hematology Oncology at [address] [phone] documented as of this encounter Visit Diagnoses Not on filedocumented in this encounter Care Teams Machine Adjuster Leader Case Trim Relationship Specialty Start Date End Date Paulino Finley MD [address] [place] [address] PCP - General Emergency Medicine 09/11/21 documented as of this encounter
--- OUTSIDE RECORDS SUMMARY | 2024-05-18 11:25 | XMS_ITS | Encounter Summary ---
Author Organization [facility] [place] [address] Care Team Providers Care Van Loader Name Role Phone Paulino Finley MD Primary Care Provider [phone] Encounter Details Date Type Department Care Team (Late st Contact Info) Description 02/01/2024 9:30 AM EDT Office Visit Hematology/Oncology at [address] [phone] Dmitry Bhatti MD [facility] [address] HEMATOLOGY/[place] [address] Ellen Mcrae APRN [facility] [place] [address] Malignant neoplasm of prostate metastatic to bone; Androgen deprivation therapy; Fatigue, unspecified type Social History Tobacco Use Types Packs/Day Years [...] Sign Reading Time Taken Comments Blood Pressure 107/59 02/01/2024 9:34 AM EDT Pulse 53 02/01/2024 9:34 AM EDT Temperature 36.2 ??C (97.1 ??F) 02/01/2024 9 :34 AM EDT Respiratory Rate 16 02/01/2024 9:34 AM EDT Oxygen Saturation 98% 02/01/2024 9:3 4 AM EDT Inhaled Oxygen Concentration - - Weight 138.6 kg (305 lb 9.6 oz) 02/01/2024 9:34 AM EDT with boots on Height 186.6 cm (6' 1.47) 02/01/2024 9 :34 AM EDT Body Mass Index 39.81 02/01/2024 9:34 AM EDT documented in this encounter Progress Notes * Ellen Mcrae, CONTROL ROOM OPERATOR - 02/01/2024 9:30 AM EDT Images from the original note were not included. 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 Phelps for consultation of metastatic prostate cancer. He initially presented with difficulties to urinate, abnormal LALA and PSA of 84 in April 2023.Was evaluated by urologist Dr. Phelps who performed prostate biopsy on May 13. Pathology revealed prostatic adenocarcinoma Ransom 5+4. Staging CT abdomen and pelvis and bone scan demonstrated diffuse bony metastatic disease along with retroperitoneal and pelvic lymphadenopathy. He was started on degarelix on May 27 and was switched to Lupron 7.5 mg on July 01 and continues on lupron q 3months.He has completed docetaxel chemotherapy and continues darolutamide and Taxotere chemotherapy. His treatment history is as detailed below. Interval history 02/01/24 Jose is in clinic for follow-up on metastatic prostate cancer and Nubeqa toxicity check. Since completing chemotherapy his energy level continues to improve. His weight isdown and his leg swelling continues to improve. Eye infection resolved since kang melgar was lanced with Ophthalmology. Follows with front load trash truck driver Dr. Bah. He completed a course of antibiotics. He has no issues with his bowels. His hair is starting to grow back. He has intermittent shooting pains in his feet since the chemotherapy which continue to resolved. Urination has improved significantly, however he does have nocturia 1-2x per night. Continues Flomax and follows with his PCP. No hematuria. No pain anywhere. No fever, chills, or signs of infection. ROS is otherwise negative. PMH: Periorbital cellulitis, chalazion and blepharitis on doxycycline 2023 COVID-19 infection September 03, 2023 Gross hematuria in August 24, 2023 Social History: He is here with his today. They live in [place]. Medications: Your Medications Accurate as of February 01, 2024 10:11 AM. If you have any questions, ask your [...] by mouth daily. 1 tablet Refills: 0 cholecalciferol 1,000 unit tablet Commonly known as: Vitamin D3 Take by mouth daily. Refills: 0 darolutamide 300 mg tablet Commonly known as: Nubeqa Take 2 tablets by mouth 2 times daily. Please call clinic before starting medication 600 mg Quantity: 120 tablet Refills: 11 diphenhydrAMINE 25 mg capsule Commonly known as: Benadryl Take 25 mg by mouth daily. 25 mg Refills: 0 Eliquis 5 mg tablet 2 times daily. Generic drug: apixaban Refills: 0 NYQUIL ORAL Take by mouth nightly as needed. Refills: 0 ondansetron 8 mg tablet Commonly [...] Extremities: Bilateral leg swelling 2+, improving BP 107/59 (Patient Position: Sitting) Pulse 53 Temp 36.2 ??C (97.1 ??F) (Temporal) Resp 16 Ht 186.6 cm (6' 1.47) Wt (!) 138.6 kg (305 lb 9.6 oz) Comment: with boots on SpO2 98% BMI 39.81 kg/m?? Pathology: Final Diagnosis A. PROSTATE, RIGHT BASE LATERAL, NEEDLE CORE BIOPSY: - Atypical small acinar proliferation (LOLITA), suspicious for minute focus (0.1 mm) of prostatic adenocarcinoma. B. PROSTATE, RIGHT BASE MEDIAL, NEEDLE CORE BIOPSY: - Prostatic adenocarcinoma, involving 1 of 1 core. - Ransom score 4 + 5 = 9 (grade group 5), tumor extent 1 mm (15% of core). - Perineural invasion is identified. C. PROSTATE, RIGHT MID LATERAL, NEEDLE CORE BIOPSY: - Prostatic adenocarcinoma, involving 1 of 1 core. - Ransom score 5 + 4 = 9 (grade group 5), tumor extent 10 mm (80% of core). D. PROSTATE, RIGHT MID MEDIAL, NEEDLE CORE BIOPSY: - Prostatic adenocarcinoma, involving 1 of 1 core. - Ransom score 4 + 5 = 9 (grade group 5), tumor extent 9 mm (80% of core). E. PROSTATE, RIGHT APEX LATERAL, NEEDLE CORE BIOPSY: - Prostatic adenocarcinoma, involving 1 of 1 core. - Ransom score 5 + 4 = 9 (grade group 5), tumor extent 16 mm (100% of core). - Perineural invasion is identified. F. PROSTATE, RIGHT APEX MEDIAL, NEEDLE CORE BIOPSY: - Prostatic adenocarcinoma, involving 1 of 1 core. - Ransom score 5 + 4 = 9 (grade [...] 1 core. - Marko score 4 + 3 = 7 (grade group 3), 70% Marko pattern 4, tumor extent 6 mm (40% of core). - Cribriform Ransom pattern 4 is present. I. PROSTATE, LEFT MID LATERAL, NEEDLE CORE BIOPSY: - Prostatic adenocarcinoma, involving 1 of 1 core. - Marko score 3 + 5 = 8 (grade group 4), tumor extent 4 mm (30% of core). J. PROSTATE, LEFT MID MEDIAL, NEEDLE CORE BIOPSY: - Prostatic adenocarcinoma, involving 1 of 1 core. - Ransom score 4 + 5 = 9 (grade group 5), tumor extent 2 mm (15% of core). K. PROSTATE, LEFT APEX LATERAL, NEEDLE CORE BIOPSY: - Benign prostatic tissue. L. PROSTATE, LEFT APEX MEDIAL, NEEDLE CORE BIOPSY: - Prostatic adenocarcinoma, involving 1 of 1 core. - Marko score 5 + 4 = 9 (grade group 5), tumor extent 2 mm (20% of core). Labs: 12/21/2023 sodium 146, BUN 18, creatinine 1.2, [...] PSA 17.2 Test 7.9 Date PSA Testosterone 12/21/23 0.05 11/23/23 0.11 <7 11/02/23 0.18 [...] mg -07/01/23 - Lupron 7.5 mg -08/10/23 to present docetaxel 75 mg/m?? with Neulasta on pro [...] Food and Drug Administration approved darolutamide (Nubeqa, [employer] tablets in combination with docetaxel for adult patients with metastatic hormone-sensitive prostate cancer (mHSPC). Efficacy was based on ARASENS ([id number]), a randomized, multicenter, double- blind, placebo-controlled clinical trial in 1306 patients with mHSPC. Patients were randomized to receive either darolutamide 600 mg orally twice daily plus docetaxel 75 mg/m2 intravenously administered every 3 weeks forup to 6 cycles or docetaxel plus placebo. All patients received a gonadotropin-releasing hormone analog concurrently or had a bilateral orchiectomy. The primary efficacy measure was overall survival (OS). Qbhd-ir-vyni progression was an additional efficacy measure. Median OS was not reached (NR) (95% CI: NR, NR) in the darolutamide plus docetaxelarm and 48.9 months (95% CI: 44.4, NR) in docetaxel plus placebo arm (HR 0.68; 95% CI: 0.57, 0.80; p<0.0001). Treatment with darolutamide and docetaxel resulted in a statistically significant delay in wdqn-pu-onou progression (HR 0.79; 95% CI: 0.66, 0.95; [...] and hypocalcemia. The recommended darolutamide dose for SPC is 600 mg (two 300 mg tablets) [...] time wants to continue on continuous ADT. 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 Contreras #Hematuria: Dr. Phelps recommended cystoscopy but patient declined and Jose has since restarted the darolutamide. He has had no additional episodes of hematuria. #fatigue: secondary to treatment. Improving #LE swelling: secondary to treatment. Improving #Eye infection: follows with Dr. Bah, Ophthalmology. Resolved s/p I&D. Off all antibiotics. Nosigns of infection on exam today. #Nocturia: 1-2x per night. Continues Flomax per PCP. Plan: Continue darolutamide 600 mg twice daily leuprolide 22.5 mg every 3 months Next visit with CBC, CMP, PSA, testosterone and Lupron in 3 months Ellen Mcrae APRN 30 minutes were spent on date of visit, including non-face to face time. documented in this encounter Plan of Treatment Upcoming Encounters Date Type Department Care Team (Late st Contact Info) Description 08/01/2024 1:00 PM EDT Office Visit Hematology/Oncology at [address] [phone] Dmitry Bhatti MD [facility] DR HEMATOLOGY/[place] [address] Ellen Mcrae APRN [facility] [place] [address] 08/01/2024 1:30 PM EDT Infusion Hematology Oncology at [address] [phone] documented as of this encounter Visit Diagnoses Diagnosis Malignant neoplasm of prostate metastatic to bone Malignant neoplasm of prostate Androgen deprivation therapy Encounter for therapeutic drug monitoring Fatigue, unspecified type documented in this encounter Care Teams Van Loader Relationship Specialty Start Date End Date Paulino Finley MD [address] [place] [address] PCP - General Emergency Medicine 09/11/21 documented as of this encounter
--- OUTSIDE RECORDS SUMMARY | 2024-05-18 11:25 | XMS_ITS | Encounter Summary ---
[place] [address] Care Team Providers Care Cone Machine Operator Name Role Phone Paulino Finley MD Primary Care Provider [phone] Reason for Visit * Reason Comments Injections * Treatment/Therapy Plan Authorization (Routine) - Authorized Specialty Diagnoses / Procedures Referred By Contac t Referred To Contact Hematology and Oncology Diagnoses Prostate cancer metastatic to multiple sites Procedures TC LEUPROLIDE ACETATE 7.5MG, FOR DEPOST SUSPENSION (LUPRON DEPOT) [id number] LUPRON DEPOT Dmitry Bhatti MD [address] [place] [id number] Dmitry Bhatti MD [address] [place] [id number] Referral ID Status Reason Start Date Expiration Date V isits Requested Visits Authorized [id number] Authorized 07/08/2023 07/07/2024 99 101 Encounter Details Date Type Department Care Team (Late st Contact Info) Description 05/09/2024 1:30 PM EDT Infusion Hematology Oncology at [address] [phone] Prostate cancer metastatic to multiple [...] as of this encounter Progress Notes * Aby Del Rio RN - 05/09/2024 1:30 PM EDT Infusion Note Diagnosis:Prostate Cancer Treatment: Lupron Injection Lupron injected in right gluteal per pt request Patient instructed on side effects of Lupron. Patient states understanding of teaching, Patient aware to call clinic with any questions or concerns. Plan: Return to clinic as scheduled. documented in this encounter Plan of Treatment Upcoming Encounters Date Type Department Care Team (Late st Contact Info) Description 08/01/2024 1:00 PM EDT Office Visit Hematology/Oncology at [address] [phone] Dmitry Bhatti MD [facility] DR HEMATOLOGY/[place] [address] Ellen Mcrae APRN [facility] [place] [address] 08/01/2024 1:30 PM EDT Infusion Hematology Oncology at [address] [phone] documented as of this encounter Visit Diagnoses Diagnosis Prostate cancer metastatic to multiple sites Malignant neoplasm of prostate documented in this encounter Administered Medications Inactive Administered Medications - up to 3 most recent administrations Medication Order MAR Action Action Date Dose Rate Site leuprolide (Lupron Depot) 22.5 mg (3 month) intramuscular syringe kit 22.5 mg 22.5 mg, Intramuscular, ONCE, 1 dose, On Wed05/09/24 at 1415, Last injection site was... leuprolide IM injection site: R Gluteal (11/02/2023 4:05 PM), Routine, This agent is restricted to outpatient use. Is this drug being given as an outpatient? Yes Given 05/09/2024 2:00 PM EDT 22.5 mg Right Gluteal documented in this encounter Care Teams Cone Machine Operator Relationship Specialty Start Date End Date Paulino Finley MD [address] [place] [address] PCP - General Emergency Medicine 09/11/21 documented as of this encounter
--- OUTSIDE RECORDS SUMMARY | 2024-05-18 11:25 | XMS_ITS | Encounter Summary ---
Author Organization [facility] Address [facility] [place] [address] Care Team Providers Care Counselor Aide Name Role Phone Paulino Finley MD Primary Care Provider [phone] Reason for Visit * Reason Comments Genetic Evaluation * Consultation (Urgent) - Closed Specialty Diagnoses / Procedures Referred By Huma valladares Referred To Contact Genetics Diagnoses Prostate cancer metastatic to multiple sites Dmitry Bhatti MD [facility] DR HEMATOLOGY/[place] [address] [facility] Hem Onc [address] [place] [address] Referral ID Status Reason Start Date Expiration Date V isits Requested Visits Authorized [id number] Closed Consult, Test & Treat 12/21/2023 12/20/2024 1 1 Encounter Details Date Type Department Care Team (Late st Contact Info) Description 01/10/2024 1:00 PM EST Office Visit Hematology [place] [phone] Braeden Brown V [facility] Hematology/[place] [address] Malignant neoplasm of prostate metastatic to bone; Family history of breast cancer Social History Tobacco Use Types Packs/Day Years [...] as of this encounter Progress Notes * Braeden Brown LGC - 01/10/2024 1:00 PM EST Jose Bee was seen by NASRIN Ewing in consultation at the request of Dmitry Bhatti to advise regarding possible heritable predisposition to cancer. I spent 15 minutes of this face to face encounter with the patient gathering medical and family history and discussing the likelihood of a genetic predisposition to cancer and the option of genetic testing. Jose's Briana was present for today's visit. Reason for referral/Chief complaint Personal history of metastatic roderick 5+4 prostate cancer. Medical history Cancer hx and treatment: Jose is a 73yo male with a recent diagnosis of prostate cancer. He initially presented with difficulties to urinate, abnormal LALA and PSA of 84 in April 2023. Was evaluated by urologist Dr. Phelps who performed prostate biopsy on May 13. Pathology revealed prostatic adenocarcinoma [place] 5+4. Staging CT abdomen and pelvis and bone scan demonstrated diffuse bony metastatic disease along with retroperitoneal and pelvic lymphadenopathy. Jose is currently following with Dr. Bhatti Pathology: Final Diagnosis A. PROSTATE, RIGHT BASE LATERAL, NEEDLE CORE BIOPSY: - Atypical small acinar proliferation (LOLITA), suspicious for minute focus (0.1 mm) of prostatic adenocarcinoma. B. PROSTATE, RIGHT BASE MEDIAL, NEEDLE CORE BIOPSY: - Prostatic adenocarcinoma, involving 1 of 1 core. - Roderick score 4 + 5 = 9 (grade group 5), tumor extent 1 mm (15% of core). - Perineural invasion is identified. C. PROSTATE, RIGHT MID LATERAL, NEEDLE CORE BIOPSY: - Prostatic adenocarcinoma, involving 1 of 1 core. - Roderick score 5 + 4 = 9 (grade group 5), tumor extent 10 mm (80% of core). D. PROSTATE, RIGHT MID MEDIAL, NEEDLE CORE BIOPSY: - Prostatic adenocarcinoma, involving 1 of 1 core. - [place] score 4 + 5 = 9 (grade group 5), tumor extent 9 mm (80% of core). E. PROSTATE, RIGHT APEX LATERAL, NEEDLE CORE BIOPSY: - Prostatic adenocarcinoma, involving 1 of 1 core. - [place] score 5 + 4 = 9 (grade group 5), tumor extent 16 mm (100% of core). - Perineural invasion is identified. F. PROSTATE, RIGHT APEX MEDIAL, NEEDLE CORE BIOPSY: - Prostatic adenocarcinoma, involving 1 of 1 core. - [place] score 5 + 4 = 9 (grade group 5), tumor extent 15 mm (95% of core). - Perineural invasion is identified. G. PROSTATE, LEFT BASE LATERAL, NEEDLE CORE BIOPSY: - Atypical small acinar proliferation (LOLITA), highly suspicious for minute focus (0.1 mm) of prostatic adenocarcinoma. H. PROSTATE, LEFT BASE MEDIAL, NEEDLE CORE BIOPSY: - Prostatic adenocarcinoma, involving 1 of 1 core. - [place] score 4 + 3 = 7 (grade group 3), 70% [place] pattern 4, tumor extent 6 mm (40% of core). - Cribriform Roderick pattern 4 is present. I. PROSTATE, LEFT MID LATERAL, NEEDLE CORE BIOPSY: - Prostatic adenocarcinoma, involving 1 of 1 core. - Roderick score 3 + 5 = 8 (grade group 4), tumor extent 4 mm (30% of core). J. PROSTATE, LEFT MID MEDIAL, NEEDLE CORE BIOPSY: - Prostatic adenocarcinoma, involving 1 of 1 core. - [place] score 4 + 5 = 9 (grade group 5), tumor extent 2 mm (15% of core). K. PROSTATE, LEFT APEX LATERAL, NEEDLE CORE BIOPSY: - Benign prostatic tissue. L. PROSTATE, LEFT APEX MEDIAL, NEEDLE CORE BIOPSY: - Prostatic adenocarcinoma, involving 1 of 1 core. - Roderick score 5 + 4 = 9 (grade group 5), tumor extent 2 mm (20% of core). Imagin12/15/23 CT chest abdomen pelvis: Impression: Compared [...] Impression: Findings are diffuse osseous metastatic disease. 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 Family History of Cancer Problem Relation Age of Onset Esophageal Cancer Maternal Grandfather smoked cigars Breast Cancer Maternal Aunt Lung Cancer Paternal Aunt Maternal ethnic background is Finnish, Moroccan. Paternal ethnic background is Finnish, [place]uran. There is no known Ashkenazi Protestant ancestry. Genetic risk assessment Based on personal and/or family history, the likelihood that Jose would be found to have a mutation in a cancer predisposition gene is high enough to offer the option of genetic testing. Specifically, Jose meets NCCN criteria for BRCA1/2 testing due to his diagnosis of metastatic roderick 9 prostate cancer. Reviewed purpose of testing, including the potential to impact future treatment options such as with PARP inhibitors as well as to identify hereditary cancer risks for Jose and his relatives. Panel genetic testing for an inherited predisposition to cancer, including prostate cancer, was discussed. The risks, benefits and limitations of panel genetic testing were reviewed, specifically a high rate of identifying a variant of uncertain significance, lack of knowledge of cancer risk for newly identified, moderate risk genes included in the panel and lack of effective screening, as well as cancer risk for other cancers not observed in the family. We reviewed dominant inheritance, meaning that if a mutation is detected there is a 50% chance for Jose's children to have also inherited the same gene alteration. We discussed the Genetic Information Nondiscrimination Act (GAUDENCIO), a federal law prohibiting discrimination by health insurance companies and most employers based on genetic information. GAUDENCIO does not apply to life insurance, disability insurance or long-term care insurance. More information about GAUDENCIO may be found at GinaHelp.org. Jose opted for testing with [facility]' CancerNext-Expanded +RNAinsight Panel, a next generation sequencing panel that simultaneously analyzes 71 genes, including BRCA1 and BRCA2, that contribute to increased risk for cancer. Jose was consented. His blood sample was drawn and sent to [facility]. Testing will take up to 3 weeks from when the lab receives the sample. Jose will be contacted via telephone once his test results become available. At that time, we will discuss with Jose the implications that this test result may have for him as well as his family members, review any recommended screening guidelines for cancer prevention and early detection, and answer any questions he mayhave. documented in this encounter Plan of Treatment Upcoming Encounters Date Type Department Care Team (Late st Contact Info) Description 08/01/2024 1:00 PM EDT Office Visit Hematology/Oncology at [address] [phone] Dmitry Bhatti MD [facility] HEMATOLOGY/[place] [address] Ellne Mcrae APRN [facility] [place] [address] 08/01/2024 1:30 PM EDT Infusion Hematology Oncology at [address] [phone] Scheduled Referrals Name Type Priority Associated Diagnoses Orde r Schedule Referral to Familial Cancer Program (Genetics) Outpatient Referral Routine Prostate cancer metastatic to multiple sites Ordered: 12/21/2023 documented as of this encounter Visit Diagnoses Diagnosis Malignant neoplasm of prostate metastatic to bone Malignant neoplasm of prostate Family history of breast cancer Family history of malignant neoplasm of breast documented in this encounter Care Teams Counselor Aide Relationship Specialty Start Date End Date Paulino Finley MD [address] [place] [address] PCP - General Emergency Medicine 09/11/21 documented as of this encounter
--- OUTSIDE RECORDS SUMMARY | 2024-05-18 11:25 | XMS_ITS | Encounter Summary ---
[place] [address] Care Team Providers Care Manager Assurance Name Role Phone Paulino Finley MD Primary Care Provider Encounter Details Date Type Department Care Team (Late Contact Info) Description 01/28/2024 Telephone Hematology/Oncology at [address] [phone] Halima Cesar Social History Tobacco Use Types [...] * Telephone Encounter - Halima Cesar - 01/28/2024 8:55 AM EDT Spoke with Jose about his appt on 02/01/[address] Bhatti and needing labs prior. He is getting labs morning off at [facility] documented in this encounter Plan of Treatment Upcoming Encounters Date Type Department Care Team (Late Contact Info) Description 08/01/2024 1:00 PM EDT Office Visit Hematology/Oncology at [address] [phone] Dmitry Bhatti MD [facility] DR HEMATOLOGY/[place] [address] Ellen Mcrae APRN [facility] [place] [address] 08/01/2024 1:30 PM EDT Infusion Hematology Oncology at [address] [phone] documented as of this encounter Visit Diagnoses Not on filedocumented in this encounter Care Teams Manager Assurance Relationship Specialty Start Date End Date Paulino Finley MD [address] [place] [address] PCP - General Emergency Medicine 09/11/21 documented as of this encounter
--- OUTSIDE RECORDS SUMMARY | 2024-05-18 11:25 | XMS_ITS | Encounter Summary ---
Author Organization [facility] [place] [address] Care Team Providers Care Interior Design Program Chair Name Role Phone Paulino Finley MD Primary Care Provider [phone] Encounter Details Date Type Department Care Team (Latest Contact Info) Description 05/08/2024 Travel Social History Tobacco Use Types Packs/Day [...] 1:00 PM EDT Office Visit Hematology/Oncology at [address] [phone] Dmitry Bhatti MD [facility] DR HEMATOLOGY/[place] [address] Ellen Mcrae APRN [facility] [place] [address] 08/01/2024 1:30 PM EDT Infusion Hematology Oncology at [address] [phone] documented as of this encounter Visit Diagnoses Not on filedocumented in this encounter Care Teams Interior Design Program Chair Relationship Specialty Start Date End Date Paulino Finley MD [address] [place] [address] PCP - General Emergency Medicine 09/11/21 documented as of this encounter
--- OUTSIDE RECORDS SUMMARY | 2024-05-18 11:25 | XMS_ITS ---
Author Organization [facility] Address [address] [facility] [place] [address] Care Team Providers Care Director Plans Name Role Phone Paulino Finley MD Primary Care Provider [phone] Active Problems Problem Noted Date Diagnosed Date [...] keratinizing D. Treatment planning in progress 05/2017 Current Oncology Plans BCN AMB ONC -PROSTATE CANCER - DOCEtaxel* Plan Start Date:08/10/2023 Plan Provider:Dmitry Bhatti MD Linked Problems Prostate cancer metastatic t o multiple sitesMalignant neoplasm of prostate metastatic to bone Treatment Medications DOCEtaxeL (Taxotere) in sodium chloride 0.9% 250 mL infusion Leuprolide (Lupron Depot) injection ([facility] [place], MAN, NDP, N[facility], NLH, NS)* Plan Start Date:08/10/2023 Plan Provider:Dmitry Bhatti MD Linked Problems Prostate cancer metastatic t o multiple sites Treatment Medications No medications scheduled. Past Plans No past plan information found. Radiation Treatments * No radiation treatments are documented for this patient in [facility]. Treatments may have been administered in another system. Resolved Problems Problem Noted Date Diagnosed Date Resolved Date Acute respiratory failure 07/20/2017 Overview (07/20/2017): Worsening oxygenation.
--- OUTSIDE RECORDS SUMMARY | 2024-05-18 11:26 | XMS_ITS | Encounter Summary ---
Author Organization [facility] [place] [address] Care Team Providers Care Cash Surrender Calculator Name Role Phone Paulino Finley MD Primary Care Provider [phone] Encounter Details Date Type Department Care Team (Late Contact Info) Description 08/23/2023 Orders Only Hematology/Oncology at [address] [phone] Dmitry Bhatti MD [facility] HEMATOLOGY/[place] [address] Malignant neoplasm of prostate metastatic to bone; Hematuria, unspecified type Social History Tobacco Use Types [...] 1:00 PM EDT Office Visit Hematology/Oncology at [address] [phone] Dmitry Bhatti MD [facility] HEMATOLOGY/[place] [address] Ellen Mcrae APRN [facility] [place] [address] 08/01/2024 1:30 PM EDT Infusion Hematology Oncology at [address] [phone] documented as of this encounter Visit Diagnoses Diagnosis Malignant neoplasm of prostate metastatic to bone Malignant neoplasm of prostate Hematuria, unspecified type documented in this encounter Care Teams Cash Surrender Calculator Relationship Specialty Start Date End Date Paulino Finley MD [address] [place] [address] PCP - General Emergency Medicine 09/11/21 documented as of this encounter
--- OUTSIDE RECORDS SUMMARY | 2024-05-18 11:26 | XMS_ITS | Encounter Summary ---
Author Organization [facility] [place] [address] Care Team Providers Care Hand I Thermal Cutter Name Role Phone Paulino Finley MD Primary Care Provider [phone] Encounter Details Date Type Department Care Team (Latest Contact Info) Description 11/02/2023 Travel Social History Tobacco Use Types Packs/Day [...] PM EDT Office Visit Hematology/Oncology at [address] [phone] Dmitry Bhatti MD [facility] DR HEMATOLOGY/[place] [address] Ellen Mcrae APRN [facility] [place] [address] 08/01/2024 1:30 PM EDT Infusion Hematology Oncology at [address] [phone] documented as of this encounter Visit Diagnoses Not on filedocumented in this encounter Care Teams Hand I Thermal Cutter Relationship Specialty Start Date End Date Paulino Finley MD [address] [place] [address] PCP - General Emergency Medicine 09/11/21 documented as of this encounter
--- OUTSIDE RECORDS SUMMARY | 2024-05-18 11:26 | XMS_ITS | Encounter Summary ---
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 Procedures TC DOCETAXEL, 1MG, INJECTION TC PEGFILGRASTIM, EXCLUDES BIOSIMILAR, 0.5 MG, INJ J9171 DOCETAXEL J2506 NEULASTA ONPRO Dmitry Bhatti MD [address] [place] [address] Dmitry Bhatti MD [address] [place] [id number] Referral ID Status Reason Start Date Expiration Date V isits Requested Visits Authorized [id number] Authorized 07/08/2023 07/07/2024 99 99 Encounter Details Date Type Department Care Team (Late st Contact Info) Description 08/31/2023 11:30 AM EDT Infusion Hematology Oncology at [address] [phone] Prostate cancer metastatic to multiple sites; Malignant neoplasm of prostate metastatic to bone Social History Tobacco Use Types Packs/Day Years [...] as of this encounter Progress Notes * Debo Antunez RN - 08/31/2023 11:30 AM EDT INFUSION THERAPY ADMINISTRATION NOTES DIAGNOSIS: Prostate CYCLE #:2, Day 1 REASON FOR VISIT: chemo- Docetaxol, Onpro SUBJECTIVE Jose Bee offers no complaints. OBJECTIVE LAB DATA: WDL for today's infusion. Seen in clinic and cleared for treatment IV ACCESS: PIV placed and removed after treatment Pre administration: Chemotherapy orders independently verified for drug name, route, and dosage per patient's height, weight and BSA by Debo Antunez RN & onsite pharmasist REACTIONS (DESCRIPTION, TIME, INTERVENTION AND EFFECTIVENESS) none ASSESSMENT Jose Bee was awake, alert and tolerated treatment well. OnPro applied to right arm at 1530. Due to start deploying dose of medication at 1830 on 08/31. Patient instructed to remove at 08/31 1930 when meter reads empty and light is solid green. Verbal and written instruction given to patient. PLAN Return to clinic per routine. documented in this encounter Plan of Treatment Upcoming Encounters Date Type Department Care Team (Late st Contact Info) Description 08/01/2024 1:00 PM EDT Office Visit Hematology/Oncology at [address] [phone] Dmitry Bhatti MD [facility] HEMATOLOGY/[place] [address] Ellen Mcrae APRN [facility] [place] [address] 08/01/2024 1:30 PM EDT Infusion Hematology Oncology at [address] [phone] documented as of this encounter Visit Diagnoses Diagnosis Prostate cancer metastatic to multiple sites Malignant neoplasm of prostate Malignant neoplasm of prostate metastatic to bone Malignant neoplasm of prostate documented in this encounter Administered Medications Inactive Administered Medications - up to 3 most recent administrations Medication Order MAR Action Action Date Dose Rate Site dexAMETHasone (Decadron) (10 mg/mL) injection 10 mg 10 mg, Intravenous, ONCE, 1 dose, On Wed08/31/23 at 1245, Administer 60 minutes prior to DOCEtaxel Given 08/31/2023 12:39 PM EDT 10 mg diphenhydrAMINE (Benadryl) capsule 50 mg 50 mg, Oral, ONCE, 1 dose, On Wed08/31/23 at 1245, Administer 60 minutes prior to DOCEtaxel, Routine Given 08/31/2023 12:38 PM EDT 50 mg DOCEtaxeL (Taxotere) 180 mg in sodium chloride 0.9% Non-PVC 309 mL infusion 180 mg, Intravenous, ONCE, 1 dose, On Wed08/31/23 at 1345, Administer over 60 Minutes, Dose Ordered = 198 mg (75 mg/m2). Pharmacist rounded dose per procedure. Warning Vesicant/Irritant Medication 3 Step Titration for Infusions 1 and 2. Regular (Not Titrated) Rate to start at infusion 3 if no HSR. Step 1: Start at a rate of 3.1 mL/hr for 15 minutes. Step 2: Increase rate to 30.9 mL/hr for 15 minutes. Step 3: Increase to regular infusion rate 309 mL/hr for remainder of infusion. NOTE TO PHARMACY: Change prep instructions to Line Primed with Drug + Auxiliary Label New Bag 08/31/2023 1:51 PM EDT 180 mg 309 mL/hr famotidine (Pepcid) (10 mg/mL) injection 20 mg 20 mg, Intravenous, ONCE, 1 dose, On Wed08/31/23 at 1245, Administer 60 minutes prior to DOCEtaxel Given 08/31/2023 12:39 PM EDT 20 mg pegfilgrastim (Neulasta Onpro) (6 mg/0.6 mL) injection kit 6 mg 6 mg, Subcutaneous, ONCE, 1 dose, On Wed08/31/23 at 1245, Allow the prefilled syringe co-packaged with the on-body injector to reach room temperature at least 30 minutes prior to administration., Routine, This agent is restricted to outpatient use. Is this drug being given as an outpatient? Yes Given 08/31/2023 3:24 PM EDT 6 mg sodium chloride 0.9% infusion 100 mL/hr, Intravenous, CONTINUOUS, Starting on Wed08/31/23 at 1245, Until Wed08/31/23 at 1837 New Bag 08/31/2023 12:41 PM EDT 100 mL/hr 100 mL/hr documented in this encounter Care Teams Supervisor Alum Plant Relationship Specialty Start Date End Date Paulino Finley MD [address] [place] [address] PCP - General Emergency Medicine 09/11/21 documented as of this encounter
--- OUTSIDE RECORDS SUMMARY | 2024-05-18 11:26 | XMS_ITS | Encounter Summary ---
Author Organization [facility] [place] [address] Care Team Providers Care Campus Chaplain Name Role Phone Paulino Finley MD Primary Care Provider [phone] Encounter Details Date Type Department Care Team (Latest Contact Info) Description 09/13/2023 Travel Social History Tobacco Use Types Packs/Day [...] PM EDT Office Visit Hematology/Oncology at [address] [phone] Dmitry Bhatti MD [facility] DR HEMATOLOGY/[place] [address] Ellen Mcrae APRN [facility] [place] [address] 08/01/2024 1:30 PM EDT Infusion Hematology Oncology at [address] [phone] documented as of this encounter Visit Diagnoses Not on filedocumented in this encounter Care Teams Campus Chaplain Relationship Specialty Start Date End Date Paulino Finley MD [address] [place] [address] PCP - General Emergency Medicine 09/11/21 documented as of this encounter
--- OUTSIDE RECORDS SUMMARY | 2024-05-18 11:26 | XMS_ITS | Encounter Summary ---
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 Procedures TC DOCETAXEL, 1MG, INJECTION TC PEGFILGRASTIM, EXCLUDES BIOSIMILAR, 0.5 MG, INJ J9171 DOCETAXEL J2506 NEULASTA ONPRO Dmitry Bhatti MD [address] [place] [address] Dmitry Bhatti MD [address] [place] [address] Referral ID Status Reason Start Date Expiration Date V isits Requested Visits Authorized [id number] Authorized 07/08/2023 07/07/2024 99 99 Encounter Details Date Type Department Care Team (Late st Contact Info) Description 11/23/2023 1:30 PM EST Infusion Hematology Oncology at [address] [phone] Prostate cancer metastatic to multiple sites; Malignant [...] Progress Notes * Debo Antunez RN - 11/23/2023 1:30 PM EST INFUSION THERAPY ADMINISTRATION NOTES DIAGNOSIS: Prostate Cancer CYCLE #: 6, Day 1 REASON FOR VISIT: Docetaxol, Onpro SUBJECTIVE Jose Bee offers no complaints. He was seen in clinic prior to infusion. OBJECTIVE LAB DATA: done today adequate for treatment IV ACCESS: PIV placed and removed after treatment Pre administration: Chemotherapy orders independently verified for drug name, route, and dosage per patient's height, weight and BSA by Debo Antunez RN & onsite pharmasist REACTIONS (DESCRIPTION, TIME, INTERVENTION AND EFFECTIVENESS) none ASSESSMENT Jose Bee was awake, alert and tolerated treatment well. OnPro applied to right arm at 1600 Due to start deploying dose of medication at 1900 on 11/24. Patient instructed to remove at 11/24 1999 when meter reads empty and light is solid green. Verbal and written instruction given to patient and . PLAN Return to clinic per routine. documented in this encounter Plan of Treatment Upcoming Encounters Date Type Department Care Team (Late st Contact Info) Description 08/01/2024 1:00 PM EDT Office Visit Hematology/Oncology at [address] [phone] [facility] HEMATOLOGY/[place] [address] [facility] [place] [address] 08/01/2024 1:30 PM EDT Infusion Hematology Oncology at [address] [phone] documented as of this encounter Visit Diagnoses [...] 10 mg, Intravenous, ONCE, 1 dose, On Wed11/23/23 at 1415, Administer 60 minutes prior to DOCEtaxel Given 11/23/2023 2:18 PM EST 10 mg diphenhydrAMINE (Benadryl) capsule 50 mg 50 mg, Oral, ONCE, 1 dose, On Wed11/23/23 at 1415, Administer 60 minutes prior to DOCEtaxel, Routine Given 11/23/2023 2:17 PM EST 50 mg DOCEtaxeL (Taxotere) 160 mg in sodium chloride 0.9% Non-PVC 258 mL infusion 160 mg, Intravenous, ONCE, 1 dose, On Wed11/23/23 at 1515, Administer over 60 Minutes, Warning Vesicant/Irritant Medication New Bag 11/23/2023 3:20 PM EST 160 mg 258 mL/hr famotidine (Pepcid) (10 mg/mL) injection 20 mg 20 mg, Intravenous, ONCE, 1 dose, On Wed11/23/23 at 1415, Administer 60 minutes prior to DOCEtaxel Given 11/23/2023 2:18 PM EST 20 mg pegfilgrastim (Neulasta Onpro) (6 mg/0.6 mL) injection kit 6 mg 6 mg, Subcutaneous, ONCE, 1 dose, On Wed11/23/23 at 1415, Allow the prefilled syringe co-packaged with the on-body injector to reach room temperature at least 30 minutes prior to administration., Routine, This agent is restricted to outpatient use. Is this drug being given as an outpatient? Yes Given 11/23/2023 4:03 PM EST 6 mg sodium chloride 0.9% infusion 100 mL/hr, Intravenous, CONTINUOUS, Starting on Wed11/23/23 at 1415, Until Wed11/23/23 at 1838 New Bag 11/23/2023 2:23 PM EST 100 mL/hr 100 mL/hr documented in this encounter Care Teams Health Manager Relationship Specialty Start Date End Date Paulino Finley MD [address] [place] [address] PCP - General Emergency Medicine 09/11/21 documented as of this encounter
--- OUTSIDE RECORDS SUMMARY | 2024-05-18 11:26 | XMS_ITS | Encounter Summary ---
Author Organization [facility] [place] [address] Care Team Providers Care Rig Superintendent Name Role Phone Paulino Finley MD Primary Care Provider [phone] Encounter Details Date Type Department Care Team (Late Contact Info) Description 12/15/2023 Ancillary Procedure [place] [phone] Dmitry Bhatti MD [facility] HEMATOLOGY/[place] [address] Social History Tobacco Use Types Packs/Day Years [...] 1:00 PM EDT Office Visit Hematology/Oncology at [address] [phone] Dmitry Bhatti MD [facility] HEMATOLOGY/[place] [address] Ellen Mcrae APRN [facility] [place] [address] 08/01/2024 1:30 PM EDT Infusion Hematology Oncology at [address] [phone] documented as of this encounter Procedures Procedure Name Priority Date/Time Associated Diagnosis Comments FILM LIBRARY STORAGE ONLY CT CHEST ABDOMEN PELVIS Routine 12/15/2023 12:00 AM EST documented in this encounter Results * Film Library- Storage Only CT Chest Abdomen Pelvis (12/15/2023 12:00 AM EST) Narrative [facility] - 12/21/2023 10:45 AM EST This exam is auto-finalizing. It's purpose is for storage only. Dmitry Bhatti MD [facility] FILM LIBRARY ORD ERABLES Performing Organization Address City/State/[facility] Co de Phone Number [place], [place] documented in this encounter Visit Diagnoses Not on filedocumented in this encounter Care Teams Rig Superintendent Relationship Specialty Start Date End Date Paulino Finley MD [address] [place] [address] PCP - General Emergency Medicine 09/11/21 documented as of this encounter
--- OUTSIDE RECORDS SUMMARY | 2024-05-18 11:26 | XMS_ITS | Encounter Summary ---
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 Procedures TC DOCETAXEL, 1MG, INJECTION TC PEGFILGRASTIM, EXCLUDES BIOSIMILAR, 0.5 MG, INJ J9171 DOCETAXEL J2506 NEULASTA ONPRO Dmitry Bhatti MD [address] [place] [address] Dmitry Bhatti MD [address] [place] [id number] Referral ID Status Reason Start Date Expiration Date V isits Requested Visits Authorized [id number] Authorized 07/08/2023 07/07/2024 99 99 Encounter Details Date Type Department Care Team (Late st Contact Info) Description 10/12/2023 9:30 AM EST Infusion Hematology Oncology at [address] [phone] Prostate cancer metastatic to multiple sites; Malignant [...] Progress Notes * Debo Antunez RN - 10/12/2023 9:30 AM EST INFUSION THERAPY ADMINISTRATION NOTES DIAGNOSIS: Prostate Cancer CYCLE #: 4, Day 1 REASON FOR VISIT: Docetaxol, Onpro SUBJECTIVE Jose Bee offers no complaints. He was seen in clinic prior to infusion. OBJECTIVE LAB DATA: WBC 6.33, Hg 12.1, Plt 210, ANC 3.98, Cr/BUN 1.2/20 IV ACCESS: PIV placed and removed after treatment Pre administration: Chemotherapy orders independently verified for drug name, route, and dosage per patient's height, weight and BSA by Debo Antunez RN & onsite pharmasist REACTIONS (DESCRIPTION, TIME, INTERVENTION AND EFFECTIVENESS) none ASSESSMENT Jose Bee was awake, alert and tolerated treatment well. OnPro applied to right arm at 1220. Due to start deploying dose of medication at 1520 on 10/13. Patient instructed to remove at 10/13 1620 when meter reads empty and light is solid green. Verbal and written instruction given to patient and . PLAN Return to clinic per routine. documented in this encounter Plan of Treatment Upcoming Encounters Date Type Department Care Team (Late st Contact Info) Description 08/01/2024 1:00 PM EDT Office Visit Hematology/Oncology at [address] [phone] Dmitry Bhatti MD [facility] HEMATOLOGY/[place] [address] Ellen Mcrae APRN [facility] [place] [address] 08/01/2024 1:30 PM EDT Infusion Hematology Oncology at [address] [phone] documented as of this encounter Visit Diagnoses [...] 10 mg, Intravenous, ONCE, 1 dose, On Wed10/12/23 at 1015, Administer 60 minutes prior to DOCEtaxel Given 10/12/2023 10:13 AM EST 10 mg diphenhydrAMINE (Benadryl) capsule 50 mg 50 mg, Oral, ONCE, 1 dose, On Wed10/12/23 at 1015, Administer 60 minutes prior to DOCEtaxel, Routine Given 10/12/2023 10:12 AM EST 50 mg DOCEtaxeL (Taxotere) 180 mg in sodium chloride 0.9% Non-PVC 259 mL infusion 180 mg, Intravenous, ONCE, 1 dose, On Wed10/12/23 at 1115, Administer over 60 Minutes, Dose Ordered = 198 mg (75 mg/m2). Pharmacist rounded dose per procedure. Warning Vesicant/Irritant Medication Taxane 3 Step Protocol: Infusions 1 and 2 (regular rate to start at infusion 3 if no HSR) Step 1: Infuse at a rate of 2.5 mL/hr for 15 minutes Step 2: Increase rate to 25 mL/hr for 15 minutes Step 3: Increase to regular infusion rate for remainder of infusion NOTE TO PHARMACY: Change prep instructions to Line Primed with Drug + Auxiliary Label New Bag 10/12/2023 11:16 AM EST 180 mg 259 mL/hr famotidine (Pepcid) (10 mg/mL) injection 20 mg 20 mg, Intravenous, ONCE, 1 dose, On Wed10/12/23 at 1015, Administer 60 minutes prior to DOCEtaxel Given 10/12/2023 10:14 AM EST 20 mg pegfilgrastim (Neulasta Onpro) (6 mg/0.6 mL) injection kit 6 mg 6 mg, Subcutaneous, ONCE, 1 dose, On Wed10/12/23 at 1015, Allow the prefilled syringe co-packaged with the on-body injector to reach room temperature at least 30 minutes prior to administration., Routine, This agent is restricted to outpatient use. Is this drug being given as an outpatient? Yes Given 10/12/2023 12:20 PM EST 6 mg Right Arm sodium chloride 0.9% infusion 100 mL/hr, Intravenous, CONTINUOUS, Starting on Wed10/12/23 at 1015, Until Wed10/12/23 at 1717 New Bag 10/12/2023 10:16 AM EST 100 mL/hr 100 mL/hr documented in this encounter Care Teams Embroidery Operator Relationship Specialty Start Date End Date Paulino Finley MD [address] [place] [address] PCP - General Emergency Medicine 09/11/21 documented as of this encounter
--- OUTSIDE RECORDS SUMMARY | 2024-05-18 11:26 | XMS_ITS | Encounter Summary ---
Author Organization [facility] [place] [address] Care Team Providers Care Food Prep Worker Name Role Phone Paulino Finley MD Primary Care Provider [phone] Encounter Details Date Type Department Care Team (Late Contact Info) Description 12/15/2023 12:05 AM EST Ancillary Procedure [place] [address] Dmitry Bhatti MD [facility] HEMATOLOGY[place] [address] Social History Tobacco Use Types Packs/Day Years [...] 1:00 PM EDT Office Visit Hematology/Oncology at [address] [phone] Dmitry Bhatti MD [facility] HEMATOLOGY/[place] [address] Ellen Mcrae APRN [facility] [place] [address] 08/01/2024 1:30 PM EDT Infusion Hematology Oncology at [address] [phone] documented as of this encounter Procedures Procedure Name Priority Date/Time Associated Diagnosis Comments FILM LIBRARY STORAGE ONLY NUCLEAR MEDICINE Routine 12/15/2023 12:05 AM EST documented in this encounter Results * Film Library- Storage Only nuclear medicine (12/15/2023 12:05 AM EST) Narrative [facility] [place] 3] - 12/21/2023 10:46 AM EST This exam is auto-finalizing. It's purpose is for storage only. Dmitry Bhatti MD G FILM LIBRARY ORD ERABLES Performing Organization Address City/State/[facility] Co de Phone Number [place], [place] documented in this encounter Visit Diagnoses Not on filedocumented in this encounter Care Teams Food Prep Worker Relationship Specialty Start Date End Date Paulino Finley MD [address] [place] [address] PCP - General Emergency Medicine 09/11/21 documented as of this encounter
--- OUTSIDE RECORDS SUMMARY | 2024-05-18 11:26 | XMS_ITS | Encounter Summary ---
Author Organization [facility] [place] [address] Care Team Providers Care Photonics Engineer Name Role Phone Paulino Finley MD Primary Care Provider [phone] Encounter Details Date Type Department Care Team (Latest Contact Info) Description 10/12/2023 Travel Social History Tobacco Use Types Packs/Day [...] PM EDT Office Visit Hematology/Oncology at [address] [phone] Dmitry Bhatti MD [facility] DR HEMATOLOGY/[place] [address] Ellen Mcrae APRN [facility] [place] [address] 08/01/2024 1:30 PM EDT Infusion Hematology Oncology at [address] [phone] documented as of this encounter Visit Diagnoses Not on filedocumented in this encounter Care Teams Photonics Engineer Relationship Specialty Start Date End Date Paulino Finley MD [address] [place] [address] PCP - General Emergency Medicine 09/11/21 documented as of this encounter
--- OUTSIDE RECORDS SUMMARY | 2024-05-18 11:26 | XMS_ITS | Encounter Summary ---
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 Procedures TC DOCETAXEL, 1MG, INJECTION TC PEGFILGRASTIM, EXCLUDES BIOSIMILAR, 0.5 MG, INJ J9171 DOCETAXEL J2506 NEULASTA ONPRO Dmitry Bhatti MD [address] [place] [id number] Dmitry Bhatti MD [address] [place] [id number] Referral ID Status Reason Start Date Expiration Date V isits Requested Visits Authorized [id number] Authorized 07/08/2023 07/07/2024 99 99 Encounter Details Date Type Department Care Team (Late st Contact Info) Description 09/21/2023 12:00 PM EST Infusion Hematology Oncology at [address] [phone] Prostate cancer metastatic to multiple sites; Malignant [...] as of this encounter Progress Notes * Meghan Odonnell RN - 09/21/2023 12:00 PM EST Images from the original note were not included. INFUSION THERAPY ADMINISTRATION NOTES DIAGNOSIS: Prostate Cancer CYCLE #:3, Day 1 REASON FOR VISIT: Docetaxol, Onpro SUBJECTIVE Jose Bee offers no complaints. He was seen in clinic prior to infusion. OBJECTIVE LAB DATA: IV ACCESS: PIV placed and removed after treatment Pre administration: Chemotherapy orders independently verified for drug name, route, and dosage per patient's height, weight and BSA by Meghan Odonnell RN & onsite pharmasist REACTIONS (DESCRIPTION, TIME, INTERVENTION AND EFFECTIVENESS) none ASSESSMENT Jsoe Bee was awake, alert and tolerated treatment well. OnPro applied to right arm at 1450. Due to start deploying dose of medication at 1750 on 09/22. Patient instructed to remove at 09/22 1850 when meter reads empty and light is solid green. Verbal and written instruction given to patient and . PLAN Return to clinic per routine. documented in this encounter Plan of Treatment Upcoming Encounters Date Type Department Care Team (Late st Contact Info) Description 08/01/2024 1:00 PM EDT Office Visit Hematology/Oncology at [address] [phone] Dmitry Bhatti MD [facility] HEMATOLOGY/[place] [address] Ellen Mcrae APRN [facility] [place] [address] 08/01/2024 1:30 PM EDT Infusion Hematology Oncology at [address] [phone] documented as of this encounter Visit Diagnoses [...] 10 mg, Intravenous, ONCE, 1 dose, On Wed09/21/23 at 1230, Administer 60 minutes prior to DOCEtaxel Given 09/21/2023 12:32 PM EST 10 mg diphenhydrAMINE (Benadryl) capsule 50 mg 50 mg, Oral, ONCE, 1 dose, On Wed09/21/23 at 1230, Administer 60 minutes prior to DOCEtaxel, Routine Given 09/21/2023 12:28 PM EST 50 mg DOCEtaxeL (Taxotere) 180 mg in sodium chloride 0.9% Non-PVC 259 mL infusion 180 mg, Intravenous, ONCE, 1 dose, On Wed09/21/23 at 1330, Administer over 60 Minutes, Warning Vesicant/Irritant Medication Taxane 3 Step Protocol: [...] Line Primed with Drug + Auxiliary Label Dose Ordered = 198 mg (75 mg/m2). Pharmacist rounded dose per procedure. New Bag 09/21/2023 1:38 PM EST 180 mg 259 mL/hr famotidine (Pepcid) (10 mg/mL) injection 20 mg 20 mg, Intravenous, ONCE, 1 dose, On Wed09/21/23 at 1230, Administer 60 minutes prior to DOCEtaxel Given 09/21/2023 12:34 PM EST 20 mg pegfilgrastim (Neulasta Onpro) (6 mg/0.6 mL) injection kit 6 mg 6 mg, Subcutaneous, ONCE, 1 dose, On Wed09/21/23 at 1230, Allow the prefilled syringe co-packaged with the on-body injector to reach room temperature at least 30 minutes prior to administration., Routine, This agent is restricted to outpatient use. Is this drug being given as an outpatient? Yes Given 09/21/2023 2:48 PM EST 6 mg Right Arm sodium chloride 0.9% infusion 100 mL/hr, Intravenous, CONTINUOUS, Starting on Wed09/21/23 at 1230, Until Wed09/21/23 at 1701 New Bag 09/21/2023 12:34 PM EST 100 mL/hr 100 mL/hr documented in this encounter Care Teams Pump Tender Relationship Specialty Start Date End Date Paulino Finley MD [address] [place] [address] PCP - General Emergency Medicine 09/11/21 documented as of this encounter
--- OUTSIDE RECORDS SUMMARY | 2024-05-18 11:26 | XMS_ITS | Encounter Summary ---
[place] [address] Care Team Providers Care Risk Prevention Engineer Name Role Phone Paulino Finley MD Primary Care Provider [phone] Reason for Visit * Reason Onset Date Comments Hematuria 08/23/2023 Visual blood in urine Encounter Details Date Type Department Care Team (Late st Contact Info) Description 08/23/2023 Telephone Hematology/Oncology at [address] [phone] Debo Antunez RN Hematuria (Visual blood in urine) Social History Tobacco Use Types Packs/Day Years [...] as of this encounter Miscellaneous Notes * Addendum Note - Dmitry Steven MD - 08/23/2023 2:29 PM EDTAddended by: DMITRY STEVEN on: 08/23/2023 02:29 PM Modules accepted: Orders * Telephone Encounter - Debo Antunez RN - 08/23/2023 12:45 PM EDT Caller: Adam Relationship: Self Clarified Two Patient Identifiers: [x] Reason For Call: Hematuria (Visual blood in urine) Assessment/Symptom Review (onset, location, duration, what makes it better or worse, pertinent positives and negatives): Adam calls and reports that he has noticed blood in his urine the last couple days. It ranges from bright red to pink tinged; sometimes it appears to not have any blood. He was off his darolutamidefrom Wednesday to last week d/t diarrhea. He restarted the darolutamide on evening and has not had diarrhea again. He also reports that he is having some Left lower back pain and is unsure if this is r/t the urine. Review of Systems Related to Reason for Call: System POS NEG Not Applicable Head (ENT /Neuro) [] [] [] Cardiac [] [] [] Respiratory [] [] [] GI [] [] [] [] [] [] Musculoskeletal [] [] [] Integumentary [] [] [] Mental Health [] [] [] Select Specific Decision Support Tool Used: Telephone Triage for Oncology Nurses, 3rd Edition, ONC,[employer], 2019 Name of Guideline/Protocol Used: provider recommendation Disposition/Plan of Care: Defer to provider recommendation Patient/Caregiver verbalizes understanding of plan of care: Yes Patient/Caregiver agrees with plan: Yes Advised patient/caregiver to: call office back for any new or worsening symptoms Patient/Caregiver demonstrates understanding via teach back: Yes ----- Message from Deonna Rooney sent at 08/23/2023 8:38 AM EDT ----- Jose call in today with complaint of blood in his urine, he feels that it is from darolutamide (Nubeqa) 300 mg tablet , he stopped taking if for a few days and resumed it on and woke up today and noticed the blood in the toilet. He would like a call back, best call back number is [phone] documented in this encounter Plan of Treatment Upcoming Encounters Date Type Department Care Team (Late st Contact Info) Description 08/01/2024 1:00 PM EDT Office Visit Hematology/Oncology at [address] [phone] Dmitry Steven MD [facility] DR HEMATOLOGY/[place] [address] Ellen Mcrae APRN [facility] [place] [address] 08/01/2024 1:30 PM EDT Infusion Hematology Oncology at [address] [phone] documented as of this encounter Visit Diagnoses Diagnosis Hematuria, unspecified type- Primary documented in this encounter Care Teams Risk Prevention Engineer Relationship Specialty Start Date End Date Paulino Finley MD [address] [place] [address] PCP - General Emergency Medicine 09/11/21 documented as of this encounter
--- OUTSIDE RECORDS SUMMARY | 2024-05-18 11:26 | XMS_ITS | Encounter Summary ---
Author Organization [facility] [place] [address] Care Team Providers Care Merchant Banker Name Role Phone Paulino Finley MD Primary Care Provider [phone] Encounter Details Date Type Department Care Team (Latest Contact Info) Description 12/20/2023 Travel Social History Tobacco Use Types Packs/Day [...] 1:00 PM EDT Office Visit Hematology/Oncology at [address] [phone] Dmitry Bhatti MD [facility] DR HEMATOLOGY/[place] [address] Ellen Mcrae APRN [facility] [place] [address] 08/01/2024 1:30 PM EDT Infusion Hematology Oncology at [address] [phone] documented as of this encounter Visit Diagnoses Not on filedocumented in this encounter Care Teams Merchant Banker Relationship Specialty Start Date End Date Paulino Finley MD [address] [place] [address] PCP - General Emergency Medicine 09/11/21 documented as of this encounter
--- OUTSIDE RECORDS SUMMARY | 2024-05-18 11:26 | XMS_ITS | Encounter Summary ---
Author Organization [facility] [place] [address] Care Team Providers Care Metallurgical Analyst Name Role Phone Paulino Finley MD Primary Care Provider [phone] Encounter Details Date Type Department Care Team (Late st Contact Info) Description 09/23/2023 Notes Only Hematology/Oncology at [address] [phone] Ellen Mcrae APRN [facility] [place] [address] Social History Tobacco Use Types Packs/Day Years [...] as of this encounter Progress Notes * Ellen Mcrae APRN - 09/23/2023 2:10 PM EST I called and spoke with Alejandro. He declines cystoscopy and understands this was recommended to rule out bladder cancer due to his history of hematuria. He will restart darolutamide. Dr. Bhatti informed and agrees ok to restart darolutamide. documented in this encounter Plan of Treatment Upcoming Encounters Date Type Department Care Team (Late st Contact Info) Description 08/01/2024 1:00 PM EDT Office Visit Hematology/Oncology at [address] [phone] Dmitry Bhatti MD [facility] HEMATOLOGY/[place] [address] Ellen Mcrae APRN [facility] [place] [address] 08/01/2024 1:30 PM EDT Infusion Hematology Oncology at [address] [phone] documented as of this encounter Visit Diagnoses Not on filedocumented in this encounter Care Teams Metallurgical Analyst Relationship Specialty Start Date End Date Paulino Finley MD [address] [place] [address] PCP - General Emergency Medicine 09/11/21 documented as of this encounter
--- OUTSIDE RECORDS SUMMARY | 2024-05-18 11:26 | XMS_ITS | Encounter Summary ---
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 Procedures TC DOCETAXEL, 1MG, INJECTION TC PEGFILGRASTIM, EXCLUDES BIOSIMILAR, 0.5 MG, INJ J9171 DOCETAXEL J2506 NEULASTA ONPRO Dmitry Bhatti MD [address] [place] [address] Dmitry Bhatti MD [address] [place] [address] Referral ID Status Reason Start Date Expiration Date V isits Requested Visits Authorized [id number] Authorized 07/08/2023 07/07/2024 99 99 Encounter Details Date Type Department Care Team (Late st Contact Info) Description 11/02/2023 1:30 PM EST Infusion Hematology Oncology at [address] [phone] Prostate cancer metastatic to multiple sites; Malignant [...] as of this encounter Progress Notes * Evan Spear, RN - 11/02/2023 1:30 PM EST INFUSION THERAPY ADMINISTRATION NOTES DIAGNOSIS: Prostate Cancer CYCLE #: 4, Day 1 REASON FOR VISIT: Docetaxol, Onpro, Lupron SUBJECTIVE Jose Bee offers no complaints. He was seen in clinic prior to infusion. OBJECTIVE LAB DATA: done today adequate for treatment IV ACCESS: PIV placed and removed after treatment Pre administration: Chemotherapy orders independently verified for drug name, route, and dosage per patient's height, weight and BSA by EVAN SPEAR, BRENNA & onsite pharmasist REACTIONS (DESCRIPTION, TIME, INTERVENTION AND EFFECTIVENESS) none ASSESSMENT Jose Bee was awake, alert and tolerated treatment well. OnPro applied to right arm at 1558 Due to start deploying dose of medication at 1858 on 11/03. Patient instructed to remove at 11/03 2000 when meter reads empty and light is solid green. Verbal and written instruction given to patient and . PLAN Return to clinic per routine. documented in this encounter Plan of Treatment Upcoming Encounters Date Type Department Care Team (Late st Contact Info) Description 08/01/2024 1:00 PM EDT Office Visit Hematology/Oncology at [address] [phone] Dmitry Bhatti MD [facility] DR HEMATOLOGY/[place] [address] Ellen Mcrae APRN [facility] [place] [address] 08/01/2024 1:30 PM EDT Infusion Hematology Oncology at [address] [phone] documented as of this encounter Visit Diagnoses [...] 10 mg, Intravenous, ONCE, 1 dose, On Wed11/02/23 at 1400, Administer 60 minutes prior to DOCEtaxel Given 11/02/2023 1:59 PM EST 10 mg diphenhydrAMINE (Benadryl) capsule 50 mg 50 mg, Oral, ONCE, 1 dose, On Wed11/02/23 at 1400, Administer 60 minutes prior to DOCEtaxel, Routine Given 11/02/2023 1:58 PM EST 50 mg DOCEtaxeL (Taxotere) 200 mg in sodium chloride 0.9% Non-PVC 260 mL infusion 200 mg, Intravenous, ONCE, 1 dose, On Wed11/02/23 at 1500, Administer over 60 Minutes, Warning Vesicant/Irritant Medication Dose Ordered = 198 mg (75 mg/m2). Pharmacist rounded dose per procedure. Taxane 3 Step Protocol: Infusions 1 and [...] with Drug + Auxiliary Label New Bag 11/02/2023 3:03 PM EST 200 mg 260 mL/hr famotidine (Pepcid) (10 mg/mL) injection 20 mg 20 mg, Intravenous, ONCE, 1 dose, On Wed11/02/23 at 1400, Administer 60 minutes prior to DOCEtaxel Given 11/02/2023 1:59 PM EST 20 mg leuprolide (Lupron Depot) injection 22.5 mg 22.5 mg, Intramuscular, ONCE, 1 dose, On Wed11/02/23 at 1415, , Routine, This agent is restricted to outpatient use. Is this drug being given as an outpatient? Yes Given 11/02/2023 4:05 PM EST 22.5 mg Right Gluteal pegfilgrastim (Neulasta Onpro) (6 mg/0.6 mL) injection kit 6 mg 6 mg, Subcutaneous, ONCE, 1 dose, On Wed11/02/23 at 1400, Allow the prefilled syringe co-packaged with the on-body injector to reach room temperature at least 30 minutes prior to administration., Routine, This agent is restricted to outpatient use. Is this drug being given as an outpatient? Yes Given 11/02/2023 3:58 PM EST 6 mg Right Arm sodium chloride 0.9% infusion 100 mL/hr, Intravenous, CONTINUOUS, Starting on Wed11/02/23 at 1400, Until Wed11/02/23 at 1852 New Bag 11/02/2023 2:03 PM EST 100 mL/hr 100 mL/hr documented in this encounter Care Teams Carnallite Plant Operator Relationship Specialty Start Date End Date Paulino Finley MD [address] [place] [address] PCP - General Emergency Medicine 09/11/21 documented as of this encounter
--- OUTSIDE RECORDS SUMMARY | 2024-05-18 11:26 | XMS_ITS | Encounter Summary ---
Author Organization [facility] Address [place] [id number] Care Team Providers Care Supervisor Composing Room Name Role Phone Paulino Finley MD Primary Care Provider Reason for Referral * Diagnostic Test (Routine) - New Request Specialty Diagnoses / Procedures Referred By Contac t Referred To Contact Radiology Diagnoses Prostate cancer metastatic to multiple sites Procedures NM Bone Scan Whole Body Dmitry Bhatti MD [facility] DR HEMATOLOGY/[place] [address] Referral ID Status Reason Start Date Expiration Date Visits Requested Visits Authorized [id number] New Request Specialty Service Requested 11/23/2023 05/23/2025 1 1 * Diagnostic Test (Routine) - New Request Specialty Diagnoses / Procedures Referred By Contac t Referred To Contact Radiology Diagnoses Prostate cancer metastatic to multiple sites Procedures CT Chest Abdomen Pelvis w Contrast (Generic) Dmitry Bhatti MD [facility] DR HEMATOLOGY/[place] [address] Referral ID Status Reason Start Date Expiration Date Visits Requested Visits Authorized [id number] New Request Specialty Service Requested 11/23/2023 05/23/2025 1 1 Encounter Details Date Type Department Care Team (Late st Contact Info) Description 11/23/2023 1:00 PM EST Office Visit Hematology/Oncology at [address] [phone] Dmitry Bhatti MD [facility] HEMATOLOGY/[place] [address] Ellen Mcrae APRN [facility] [place] [place] [address] Prostate cancer metastatic to multiple sites (Primary Dx); Encounter for chemotherapy management; Malignant neoplasm of prostate metastatic to bone; Fatigue, unspecified type; Androgen deprivation therapy Social History Tobacco Use Types Packs/Day Years [...] Sign Reading Time Taken Comments Blood Pressure 98/48 11/23/2023 1:02 PM EST Pulse 65 11/23/2023 1:02 PM EST Temperature 36.3 ??C (97.3 ??F) 11/23/2023 1:02 PM ES T Respiratory Rate 16 11/23/2023 1:02 PM EST Oxygen Saturation 100% 11/23/2023 1:02 PM EST Inhaled Oxygen Concentration - - Weight 140.2 kg (309 lb) 11/23/2023 1:02 PM EST Height 186.6 cm (6' 1.47) 11/23/2023 1:02 PM ES T Body Mass Index 40.25 11/23/2023 1:02 PM EST documented in this encounter Progress Notes * Dmitry Bhatti MD - 11/23/2023 1:00 PM EST Images from the original note were not included. 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 Phelps for consultation of metastatic prostate cancer. He initially presented with difficulties to urinate, abnormal LALA and PSA of 84 in April 2023.Was evaluated by urologist Dr. Phelps who performed prostate biopsy on May 13. Pathology revealed prostatic adenocarcinoma Jarrell 5+4. Staging CT abdomen and pelvis and bone scan demonstrated diffuse bony metastatic disease along with retroperitoneal and pelvic lymphadenopathy. He was started on degarelix on May 27 and was switched to Lupron 7.5 mg on July 01 and continues on lupron q 3months.He has since started darolutamide and Taxotere chemotherapy. Interval history 11/23/22 Jose is in clinic for follow-up on metastatic prostate cancer and docetaxel/Nubeqa toxicity check. Complains on watery eyes and a runny nose, fatigue, weight gain and leg swelling. Complains of some weakness in his upper legs. Denies any pain. He has no issues with his bowels. Has expected hair thinning. Denies any additional episodes of hematuria. No fever, chills, orsigns of infection. ROS is otherwise negative. PMH: No interval changes since last visit COVID-19 infection September 03, 2023 Gross hematuria in August 24, 2023 Social History: He is here with his today. They live in [place]. Medications: Your Medications Accurate as of November 23, 2023 1:13 PM. If you have any questions, ask [...] times daily. Generic drug: apixaban Refills: 0 loratadine 10 mg Tablet Commonly known as: Claritin Take 10 mg by mouth daily. 10 mg Refills: 0 NYQUIL ORAL Take by mouth [...] interval history PE: Constitutional: NAD HENT: Eyes: Non-injected, anicteric. Neck: No lymphadenopathy Cardiovascular: Irregular rate and rhythm, hx of afib. Resp: Effort normal. No respiratory distress. CTA Abdominal: Soft, NT, ND, BS+ Extremities: No swelling BP 98/48 (Patient Position: Sitting) Pulse 65 Temp 36.3 ??C (97.3 ??F) (Temporal) Resp 16 Ht 186.6 cm (6' 1.47) Wt (!) 140.2 kg (309 lb) SpO2 100% BMI 40.25 kg/m?? Pathology: Final Diagnosis A. PROSTATE, RIGHT [...] adenocarcinoma, involving 1 of 1 core. - Jarrell score 5 + 4 = 9 (grade group 5), tumor extent 16 mm (100% of core). - Perineural invasion is identified. F. PROSTATE, RIGHT APEX MEDIAL, NEEDLE CORE BIOPSY: - Prostatic adenocarcinoma, involving 1 of 1 core. - Jarrell score 5 + 4 = 9 (grade group 5), tumor extent 15 mm (95% of core). - Perineural invasion is identified. G. PROSTATE, LEFT BASE LATERAL, NEEDLE CORE BIOPSY: - Atypical small acinar proliferation (LOLITA), highly suspicious for minute focus (0.1 mm) of prostatic adenocarcinoma. H. PROSTATE, LEFT BASE MEDIAL, NEEDLE CORE BIOPSY: - Prostatic adenocarcinoma, involving 1 of 1 core. - Jarrell score 4 + 3 = 7 (grade group 3), 70% Marko pattern 4, tumor extent 6 mm (40% of core). - Cribriform Jarrell pattern 4 is present. I. PROSTATE, LEFT MID LATERAL, NEEDLE CORE BIOPSY: - Prostatic adenocarcinoma, involving 1 of 1 core. - Jarrell score 3 + 5 = 8 (grade [...] adenocarcinoma, involving 1 of 1 core. - Jarrell score 5 + 4 = 9 (grade group 5), tumor extent 2 mm (20% of core). Labs: 11/23/2023 WBC 5.2, hemoglobin 11.8, platelet count [...] PSA 17.2 Test 7.9 Date PSA Testosterone 11/02/23 0.18 <7 10/12/23 0.26 <7 09/21/23 0.42 08/24/23 2.0 07/08/23 18.8 04/2023 84 08/10/23 17.2 08/24/22 2.0 <7 09/20/23 0.42 <7 10/12/23 0.26 Imagin07/29/2023 CT chest: Impression: Diffuse osseous metastatic disease. [...] to present: darolutamide 600 mg twice daily -08/24/23 -09/23/2023 darolutamide was held for total of 2 weeks for hematuria which resolved Jose Bee is 72 y.o.M with new diagnosis of metastatic prostate [...] Food and Drug Administration approved darolutamide (Nubeqa, [employer] tablets in combination with docetaxel for adult patients with metastatic hormone-sensitive prostate cancer (mHSPC). Efficacy was based on ARASENS ([id number]), a randomized, multicenter, double- blind, placebo-controlled clinical trial in 1306 patients with mHSPC. Patients were randomized to receive either darolutamide 600 mg orally twice daily plus docetaxel 75 mg/m2 intravenously administered every 3 weeks forup to 6 cycles or docetaxel plus placebo. All patients received a gonadotropin-releasing hormone analog concurrently or had a bilateral orchiectomy. The primary efficacy measure was overall survival (OS). Jnfm-ru-redu progression was an additional efficacy measure. Median OS was not reached (NR) (95% CI: NR, NR) in the darolutamide plus docetaxelarm and 48.9 months (95% CI: 44.4, NR) in docetaxel plus placebo arm (HR 0.68; 95% CI: 0.57, 0.80; p<0.0001). Treatment with darolutamide and docetaxel resulted in a statistically significant delay in xltb-ky-nzsp progression (HR 0.79; 95% CI: 0.66, 0.95; [...] and hypocalcemia. The recommended darolutamide dose for SP is 600 mg (two 300 mg tablets) [...] elected to proceed with darolutamide and docetaxel. Continue lupron. 08/31/23 He tolerated the first cycle [...] He will continue Nubeqa and Lupron. . 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 Contreras #Hematuria: Dr. Phelps recommended cystoscopy but patient declined and Jose has since restarted the darolutamide. He has had no additional episodes of hematuria. #fatigue: secondary to treatment. Tolerable and he remains active riding his exercise bike. Plan: Docetaxel cycle 6 today with Neulasta support. Continue darolutamide 600 mg twice daily Restaging CT chest abdomen pelvis and nuclear bone scan in 4 weeks (about 1-2 weeks prior to next appointment) Next visit with MD with CBC, CMP, PSA, testosterone CT chest abdomen pelvis and bone scan documented in this encounter Plan of Treatment Upcoming Encounters Date Type Department Care Team (Late st Contact Info) Description 08/01/2024 1:00 PM EDT Office Visit Hematology/Oncology at [address] [phone] Dmitry Bhatti MD [facility] DR HEMATOLOGY/[place] [address] Ellen Mcrae APRN [facility] [place] [place] [address] 08/01/2024 1:30 PM EDT Infusion Hematology Oncology at [address] [phone] Scheduled Orders Name Type Priority Associated Diagnoses Orde r Schedule CT Chest Abdomen Pelvis w Contrast (Generic) Imaging Routine Prostate cancer metastatic to multiple sites Expected: 12/24/2023 (Approximate), Expires: 06/24/2024 NM Bone Scan Whole Body Imaging Routine Prostate cancer metastatic to multiple sites Expected: 12/24/2023 (Approximate), Expires: 06/24/2024 documented as of this encounter Visit Diagnoses Diagnosis Prostate cancer metastatic to multiple sites- Primary Malignant neoplasm of prostate Encounter for chemotherapy management Malignant neoplasm of prostate metastatic to bone Malignant neoplasm of prostate Fatigue, unspecified type Androgen deprivation therapy Encounter for therapeutic drug monitoring documented in this encounter Care Teams Supervisor Composing Room Relationship Specialty Start Date End Date Paulino Finley MD [address] [place] [address] PCP - General Emergency Medicine 09/11/21 documented as of this encounter
--- OUTSIDE RECORDS SUMMARY | 2024-05-18 11:26 | XMS_ITS | Encounter Summary ---
Author Organization [facility] [place] [address] Care Team Providers Care Attendant Honor Bar Name Role Phone Paulino Finley MD Primary Care Provider [phone] Encounter Details Date Type Department Care Team (Late st Contact Info) Description 09/09/2023 Notes Only Hematology/Oncology at [address] [phone] Dina Schrader APRN [facility] [place] [address] Social History Tobacco Use Types Packs/Day Years [...] as of this encounter Progress Notes * Dina Schrader APRN - 09/09/2023 3:34 PM EDT Patient was seen by his urologist on 09/02/23. Dr Phelps decided that the patient would have a cystoscopy with bilateral retrograde pyelogram and possible resection of bladder tumor at the next possible surgical day. After the results are known, a decision will be made re: restarting darolutamide. documented in this encounter Plan of Treatment Upcoming Encounters Date Type Department Care Team (Late st Contact Info) Description 08/01/2024 1:00 PM EDT Office Visit Hematology/Oncology at [address] [phone] Dmitry Bhatti MD [facility] DR HEMATOLOGY/[place] [address] Ellen Mcrae APRN [facility] [place] [address] 08/01/2024 1:30 PM EDT Infusion Hematology Oncology at [address] [phone] documented as of this encounter Visit Diagnoses Not on filedocumented in this encounter Care Teams Attendant Honor Bar Relationship Specialty Start Date End Date Paulino Finley MD [address] [place] [address] PCP - General Emergency Medicine 09/11/21 documented as of this encounter
--- OUTSIDE RECORDS SUMMARY | 2024-05-18 11:26 | XMS_ITS | Encounter Summary ---
[place] [address] Care Team Providers Care Locomotive Crane Operator Name Role Phone Paulino Finley MD Primary Care Provider [phone] Reason for Visit * Reason Onset Date Comments Follow-up 08/11/2023 S/p first chemo Encounter Details Date Type Department Care Team (Late st Contact Info) Description 08/11/2023 Telephone Hematology/Oncology at [address] [phone] Shad Hernandez RN Follow-up (S/p first chemo ) Social History Tobacco Use Types Packs/Day Years [...] encounter Miscellaneous Notes * Telephone Encounter - Shad Hernandez RN - 08/11/2023 10:04 AM EDT Post chemo call Placed call to patient to assess tolerance of first time chemotherapy treatment. Regimen received: Docetaxel + Neulasta OnPRO Date of treatment: 08/10/23 Assessment: Symptom Present (yes[y]/no[n]/ stable[s] from baseline) Additional information/Assessment GI Nausea n Vomiting n Nausea medication n Tolerating diet y Maintaining fluid intake (indicate volume) y Bowel movements regular y Diarrhea n Mouth sores n General Pain (0 none - 10 high) n Using pain medications n Fever n Neuro Level of fatigue (0 - 5) Did not sleep well last night Falls n Numbness/tingling in arms/legs n Cognitive changes n Skin Skin changes n Pinpoint red dots Other s/s of bleeding n IV site/VAD problems n Musculoskeletal Joint swelling or tenderness n Arthralgias or myalgias n Voiding problems n Color and quality of urine s Cardio-pulmonary Shortness of breath n Chest pain n Swelling in legs n Calf pain or tenderness n Cough (productive/non-productive) n Psychosocial Coping y Need prescription renewals Other issues: INSOMNIA most likely from steroids. Will continue to monitor and let us know if symptoms do not resolve. Education provided: Plan: Neulasta OnPro to deploy and pt aware of when to remove. Reinforced to patient/care-population geneticist to call facility 31/05 with any new/worsening signs and symptoms orconcerns or questions. Phone number provided. Pt verbalized understanding and is in agreement with plan. ----- Message from Debo Antunez RN sent at 08/10/2023 4:20 PM EDT ----- Regarding: check in after first chemo Please check in after first chemo- docetaxel. Also got onpro and lupron. documented in this encounter Plan of Treatment Upcoming Encounters Date Type Department Care Team (Late st Contact Info) Description 08/01/2024 1:00 PM EDT Office Visit Hematology/Oncology at [address] [phone] Dmitry Bhatti MD [facility] HEMATOLOGY/[place] [address] Ellen Mcrae APRN [facility] [place] [address] 08/01/2024 1:30 PM EDT Infusion Hematology Oncology at [address] [phone] documented as of this encounter Visit Diagnoses Not on filedocumented in this encounter Care Teams Locomotive Crane Operator Relationship Specialty Start Date End Date Paulino Finley MD [address] [place] [address] PCP - General Emergency Medicine 09/11/21 documented as of this encounter
--- OUTSIDE RECORDS SUMMARY | 2024-05-18 11:26 | XMS_ITS | Encounter Summary ---
Author Organization [facility] [place] [address] Care Team Providers Care Control Engineer Name Role Phone Paulino Finley MD Primary Care Provider Encounter Details Date Type Department Care Team (Latest Contact Info) Description 08/10/2023 Travel Social History Tobacco Use Types Packs/Day [...] 1:00 PM EDT Office Visit Hematology/Oncology at [address] [phone] Dmitry Bhatti MD [facility] DR HEMATOLOGY/[place] [address] Ellen Mcrae APRN [facility] [place] [address] 08/01/2024 1:30 PM EDT Infusion Hematology Oncology at [address] [phone] documented as of this encounter Visit Diagnoses Not on filedocumented in this encounter Care Teams Control Engineer Relationship Specialty Start Date End Date Paulino Finley MD [address] [place] [address] PCP - General Emergency Medicine 09/11/21 documented as of this encounter
--- OUTSIDE RECORDS SUMMARY | 2024-05-18 11:26 | XMS_ITS | Encounter Summary ---
Author Organization [facility] [place] [address] Care Team Providers Care Stitch Separator Name Role Phone Paulino Finley MD Primary Care Provider [phone] Encounter Details Date Type Department Care Team (Late st Contact Info) Description 10/12/2023 9:00 AM EST Office Visit Hematology/Oncology at [address] [phone] Dmitry Bhatti MD [facility] [place]ATOLOGY/[place] [address] Ellen Mcrae APRN [facility] [place] [address] Prostate cancer metastatic to multiple sites; Hematuria, unspecified type; Androgen deprivation therapy; Encounter for chemotherapy management Social History Tobacco Use Types Packs/Day Years [...] Sign Reading Time Taken Comments Blood Pressure 103/55 10/12/2023 9:09 AM EST Pulse 85 10/12/2023 9:09 AM EST Temperature 36.3 ??C (97.3 ??F) 10/12/2023 9:09 AM ES T Respiratory Rate 16 10/12/2023 9:09 AM EST Oxygen Saturation 99% 10/12/2023 9:09 AM EST Inhaled Oxygen Concentration - - Weight 136.4 kg (300 lb 9.6 oz) 10/12/2023 9:09 AM EST Height 186.6 cm (6' 1.47) 10/12/2023 9:09 AM ES T Body Mass Index 39.16 10/12/2023 9:09 AM EST documented in this encounter Progress Notes * Dmitry Bhatti MD - 10/12/2023 9:00 AM EST Images from the original note were [...] on May 13. Pathology revealed prostatic adenocarcinoma [place]ide[place] 5+4. Staging CT abdomen and pelvis and bone scan demonstrated diffuse bony metastatic disease along with retroperitoneal and pelvic lymphadenopathy. He was started on degarelix on May 27 and was switched to Lupron 7.5 mg on July 01 and continues on lupron q 3months.He has since started darolutamide and Taxotere chemotherapy. Interval history 10/12/23 Jose is in clinic for follow-up on metastatic prostate cancer and docetaxel and Nubeqa toxicity check.. Complains of low stamina mood he still has cough and voice hoarseness. He complains of exertional shortness of breath. His appetite is okay. He has no issues with his bowels. Urine as noted above. No fever, chills, or signs of infection. ROS is otherwise negative. PMH: COVID-19 infection September 03, 2023 Gross hematuria in August 24, 2023 Social History: He is here with his today. They live in [place]. Medications: Your Medications Accurate as of October 12, 2023 9:13 AM. If you have any questions, ask your nurse or doctor. Continued medications with new dosing Dose Details acetaminophen 325 mg tablet Commonly known as: Tylenol Take 2 tablets by mouth every 4 hours. What changed: when to take this reasons to take this 650 mg Quantity: 30 tablet Refills: 1 Continued medications, unchanged Dose Details cholecalciferol 1,000 unit tablet Commonly known as: Vitamin D3 Take by mouth daily. Refills: 0 darolutamide 300 mg tablet Commonly known as: Nubeqa Take 2 tablets by mouth 2 times daily. Please call clinic before starting medication 600 mg Quantity: 120 tablet Refills: 11 Eliquis 5 mg tablet 2 times daily. Generic drug: apixaban Refills: 0 melatonin 5 mg tablet Take 10 mg by mouth nightly. 10 mg Refills: 0 ondansetron 8 mg tablet Commonly [...] by mouth daily. 0.4 mg Refills: 0 UNABLE TO FIND every morning. Osteo Biflex Refills: 0 Review of Systems: As in interval history PE: Constitutional: NAD HENT: Eyes: Non-injected, anicteric. Neck: No lymphadenopathy Cardiovascular: RRR, no murmur. Resp: Effort normal. No respiratory distress. CTA Abdominal: Soft, NT, ND, BS+ Extremities: No swelling Temp: [36.3 ??C (97.3 ??F)] Heart Rate: [85] Resp: [16] BP: -- SpO2: [99 %] Heart Rate from SpO2: -- Pathology: Final Diagnosis A. PROSTATE, RIGHT BASE [...] adenocarcinoma, involving 1 of 1 core. - [place]idewater score 5 + 4 = 9 (grade [...] adenocarcinoma, involving 1 of 1 core. - [place]ide[place] score 4 + 3 = 7 (grade group 3), 70% [place]ide[place] pattern 4, tumor extent 6 mm (40% of core). - Cribriform [place] pattern 4 is present. I. PROSTATE, LEFT [...] extent 2 mm (20% of core). Labs: 10/12/2023 WBC 6.33, hemoglobin 12.1, platelet count [...] PSA 17.2 Test 7.9 Date PSA Testosterone 04/2023 84 08/10/23 17.2 08/24/22 2.0 <7 09/20/23 0.42 <7 10/12/23 pending Imagin07/29/2023 CT chest: Impression: Diffuse osseous metastatic [...] mg -07/01/23 - Lupron 7.5 mg -08/10/23 started docetaxel 75 mg/m?? with Neulasta on pro -08/11/2023 started darolutamide 600 mg twice daily -08/24/23 -09/23/2023 darolutamide was held for total of 2 weeks Jose Bee is 72 y.o.M with new diagnosis of metastatic prostate cancer, high risk. He already started androgen deprivation therapy under care of [...] Food and Drug Administration approved darolutamide (Nubeqa, [employer] tablets in combination with docetaxel for adult patients with metastatic hormone-sensitive prostate cancer (mHSPC). Efficacy was based on ARASENS ([id number]), a randomized, multicenter, double- blind, placebo-controlled clinical trial in 1306 patients with mHSPC. Patients were randomized to receive either darolutamide 600 mg orally twice daily plus docetaxel 75 mg/m2 intravenously administered every 3 weeks forup to 6 cycles or docetaxel plus placebo. All patients received a gonadotropin-releasing hormone analog concurrently or had a bilateral orchiectomy. The primary efficacy measure was overall survival (OS). Sbvl-dg-uhuw progression was an additional efficacy measure. Median OS was not reached (NR) (95% CI: NR, NR) in the darolutamide plus docetaxelarm and 48.9 months (95% CI: 44.4, NR) in docetaxel plus placebo arm (HR 0.68; 95% CI: 0.57, 0.80; p<0.0001). Treatment with darolutamide and docetaxel resulted in a statistically significant delay in vgsn-kg-qrme progression (HR 0.79; 95% CI: 0.66, 0.95; [...] and hypocalcemia. The recommended darolutamide dose for [facility] is 600 mg (two 300 mg tablets) [...] received 3 cycles of docetaxel along with low back and 600 mg twice daily. It does affect [...] Will see him back in 3 weeks. 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 Contreras #Hematuria: Dr. Phelps recommended cystoscopy but patient declined. recommend he hold darolutamide as this is a rare side effect. Jose did restart the darolutamide 2 weeks ago as he thought he was to restart it. Repeat UA today showed negative for blood in his urine. Jose plans to contact urology to confirm if he should still proceed with cystocopy as his repeat UA was negative. We will hold the darolutamide until he can confirm Urology recommendations. Plan: Docetaxel cycle 4 today with Neulasta support. Continue darolutamide 600 mg twice daily Next visit in 3-weeks with CBC, CMP, PSA, testosterone, for his fifth dose of docetaxel and lupron injection Ellen Mcrae NP 40 minutes were spent on date of visit, including non-face to face time including consultation withDr. Bhatti regarding the plan of care. documented in this encounter Plan of Treatment Upcoming Encounters Date Type Department Care Team (Late st Contact Info) Description 08/01/2024 1:00 PM EDT Office Visit Hematology/Oncology at [address] [phone] Dmitry Bhatti MD [facility] DR HEMATOLOGY/[place] [address] Ellen Mcrae APRN [facility] [place] [address] 08/01/2024 1:30 PM EDT Infusion Hematology Oncology at [address] [phone] documented as of this encounter Visit Diagnoses Diagnosis Prostate cancer metastatic to multiple sites Malignant neoplasm of prostate Hematuria, unspecified type Androgen deprivation therapy Encounter for therapeutic drug monitoring Encounter for chemotherapy management documented in this encounter Care Teams Stitch Separator Relationship Specialty Start Date End Date Paulino Finley MD [address] [place] [address] PCP - General Emergency Medicine 09/11/21 documented as of this encounter
--- OUTSIDE RECORDS SUMMARY | 2024-05-18 11:26 | XMS_ITS | Encounter Summary ---
Author Organization Formerly [facility] [place] [address] Care Team Providers Care Biofuels Technology Manager Name Role Phone Paulino Finley MD Primary Care Provider [phone] Encounter Details Date Type Department Care Team (Latest Contact Info) Description 12/31/2023 Travel Social History Tobacco Use Types Packs/Day [...] 1:00 PM EDT Office Visit Hematology/Oncology at [address] [phone] Dmitry Bhatti MD [facility] [address] HEMATOLOGY/[place] [address] Ellen Mcrae APRN [facility] [place] [address] 08/01/2024 1:30 PM EDT Infusion Hematology Oncology at [address] [phone] documented as of this encounter Visit Diagnoses Not on filedocumented in this encounter Care Teams Biofuels Technology Manager Relationship Specialty Start Date End Date Paulino Finley MD [address] [place] [address] PCP - General Emergency Medicine 09/11/21 documented as of this encounter
--- OUTSIDE RECORDS SUMMARY | 2024-05-18 11:26 | XMS_ITS | Encounter Summary ---
[place] [address] Care Team Providers Care Dobby Loom Chain Pegger Name Role Phone Paulino Finley MD Primary Care Provider [phone] Encounter Details Date Type Department Care Team (Late st Contact Info) Description 08/11/2023 Telephone Hematology [place] [phone] Jennifer Francois, RN Social History Tobacco Use Types Packs/Day Years [...] encounter Miscellaneous Notes * Telephone Encounter - Jennifer Francois, RN - 08/11/2023 9:28 AM EDT Oral Chemotherapy Patient Education Note 08/11/2023 Jose Bee, 1950 Jose Bee ([id number]) was prescribed Nebeqa by Dr. Bhatti Patient is now approved to receive his Nubeqa at no cost through [employer] until 08/06/2024. . The patient was provided verbal and written instructions regarding oral chemotherapy, including pharmacy information, how to take the medication, and proper storage, safe handling and disposal instructions. Written educational information was provided to Patient and , including: Information for Patients and Caregivers: Safe Handling and Administration of Oral Chemotherapy Drug-specific clinical practice (CP) online patient education information Provider and Nurse name and contact information Instructions and telephone number to call on nights/weekends/holidays Jose and his understand to call this office and notify us when his medication arrives and when her plans to start taking nubeqa. Jose had docetaxel treatment yesterday and reports he is felling well, no issues with N/V/D/C. He is concerned about getting constipation. Discussed increasing fluids, increasing fiber in his diet and trying alternatives like Smooth Move Tea if this should happen. He is eating a normal diet today and is feeling well. 08/09/23: per Casi Dong, patient is now approved to receive his Nubeqa at no cost through [email or web address] until 08/06/2024. Message from Daniella Coombs RN sent at 07/28/2023 9:34 AM EDT ----- Regarding: FW: Nubeqa chemo call MAP waiting on MD portion- email to Paulino asking them to sign LOLITA ----- Message ----- From: Daniella Coombs RN Sent: 07/28/2023 12:00 AM EDT To: [facility] Hem Onc Triage Prostate Subject: FW: Nubeqa chemo call Application mailed back to on Wednesday per pt /MAP hadn't' received ----- Message ----- From: Daniella Coombs RN Sent: 07/21/2023 12:00 AM EDT To: [facility] Hem Onc Triage Prostate Subject: FW: Nubeqa chemo call Application sent to patient 07/13 by [facility] ----- Message ----- From: Daniella Coombs RN Sent: 07/15/2023 12:00 AM EDT To: [facility] Hem Onc Triage Prostate Subject: Nubeqa chemo call To [facility] for high co-pay documented in this encounter Plan of Treatment Upcoming Encounters Date Type Department Care Team (Late st Contact Info) Description 08/01/2024 1:00 PM EDT Office Visit Hematology/Oncology at [address] [phone] Dmitry Bhatti MD [facility] DR HEMATOLOGY/[place] [address] Ellen Mcrae APRN [facility] [place] [address] 08/01/2024 1:30 PM EDT Infusion Hematology Oncology at [address] [phone] documented as of this encounter Visit Diagnoses Not on filedocumented in this encounter Care Teams Dobby Loom Chain Pegger Relationship Specialty Start Date End Date Paulino Finley MD [address] [place] [address] PCP - General Emergency Medicine 09/11/21 documented as of this encounter
--- OUTSIDE RECORDS SUMMARY | 2024-05-18 11:26 | XMS_ITS | Encounter Summary ---
[place] [address] Care Team Providers Care Schedule Hanger Name Role Phone Paulino Finley MD Primary Care Provider [phone] Reason for Visit * Reason Onset Date Comments Eye Problem 11/19/2023 Encounter Details Date Type Department Care Team (Late st Contact Info) Description 11/19/2023 Telephone Hematology/Oncology at [address] [phone] Shad Hernandez RN Eye Problem Social History Tobacco Use Types Packs/Day Years Used Date Smoking Tobacco: Former Cigarettes 1 9 - 1995 Pipe Smokeless Tobacco: Never [...] Telephone Encounter - Shad Hernandez RN - 11/19/2023 1:47 PM EST Called and spoke with Jose Bee who reports he went to PCP in [place] and believe he hasstye and advised warm compresses. He is doing that and will let us know if symptoms do not improve.He was thankful for the follow up call and plans to see us Thursday 11/23 for visit and last infusion. ----- Message from Karlie J Brown sent at 11/19/2023 8:07 AM EST ----- Alejandro is having an issue with his eye. He was wondering if there was any medication he should be concerned with. He is going to make an appointment with his PCP in [place] for today, hopefully. Please call him back and answer any concerns he has about this. [phone] documented in this encounter Plan of Treatment Upcoming Encounters Date Type Department Care Team (Late st Contact Info) Description 08/01/2024 1:00 PM EDT Office Visit Hematology/Oncology at [address] [phone] Dmitry Bhatti MD [facility] DR HEMATOLOGY/[place] [address] Ellen Mcrae APRN [facility] [place] [address] 08/01/2024 1:30 PM EDT Infusion Hematology Oncology at [address] [phone] documented as of this encounter Visit Diagnoses Not on filedocumented in this encounter Care Teams Schedule Hanger Relationship Specialty Start Date End Date Paulino Finley MD [address] [place] [address] PCP - General Emergency Medicine 09/11/21 documented as of this encounter
--- OUTSIDE RECORDS SUMMARY | 2024-05-18 11:26 | XMS_ITS | Encounter Summary ---
Author Organization [facility] [place] [address] Care Team Providers Care Brewery Cellar Worker Name Role Phone Paulino Finley MD Primary Care Provider [phone] Encounter Details Date Type Department Care Team (Latest Contact Info) Description 08/31/2023 Travel Social History Tobacco Use Types Packs/Day [...] 1:00 PM EDT Office Visit Hematology/Oncology at [address] [phone] Dmitry Bhatti MD [facility] DR HEMATOLOGY/[place] [address] Ellen Mcrae APRN [facility] [place] [address] 08/01/2024 1:30 PM EDT Infusion Hematology Oncology at [address] [phone] documented as of this encounter Visit Diagnoses Not on filedocumented in this encounter Care Teams Brewery Cellar Worker Relationship Specialty Start Date End Date Paulino Finley MD [address] [place] [address] PCP - General Emergency Medicine 09/11/21 documented as of this encounter
--- OUTSIDE RECORDS SUMMARY | 2024-05-18 11:26 | XMS_ITS | Encounter Summary ---
Author Organization [facility] [place] [address] Care Team Providers Care Donor Services Manager Name Role Phone Paulino Finley MD Primary Care Provider [phone] Encounter Details Date Type Department Care Team (Late Contact Info) Description 09/03/2023 Orders Only Hematology [place] [address] Dina Schrader APRN [facility] [place] [address] COVID-19 Social History Tobacco Use Types Packs/Day Years [...] 1:00 PM EDT Office Visit Hematology/Oncology at [address] [phone] Dmitry Bhatti MD [facility] DR HEMATOLOGY/[place] [address] Ellen Mcrae APRN [facility] [place] [address] 08/01/2024 1:30 PM EDT Infusion Hematology Oncology at [address] [phone] documented as of this encounter Visit Diagnoses Diagnosis COVID-19 documented in this encounter Care Teams Donor Services Manager Relationship Specialty Start Date End Date Paulino Finley MD [address] [place] [address] PCP - General Emergency Medicine 09/11/21 documented as of this encounter
--- OUTSIDE RECORDS SUMMARY | 2024-05-18 11:26 | XMS_ITS | Encounter Summary ---
Author Organization [facility] [place] [address] Care Team Providers Care Manipulator Operator Name Role Phone Paulino Finley MD Primary Care Provider Encounter Details Date Type Department Care Team (Latest Contact Info) Description 12/21/2023 Travel Social History Tobacco Use Types Packs/Day [...] 1:00 PM EDT Office Visit Hematology/Oncology at [address] [phone] Dmitry Bhatti MD [facility] DR HEMATOLOGY/[place] [address] Ellen Mcrae APRN [facility] [place] [address] 08/01/2024 1:30 PM EDT Infusion Hematology Oncology at [address] [phone] documented as of this encounter Visit Diagnoses Not on filedocumented in this encounter Care Teams Manipulator Operator Relationship Specialty Start Date End Date Paulino Finley MD [address] [place] [address] PCP - General Emergency Medicine 09/11/21 documented as of this encounter
--- OUTSIDE RECORDS SUMMARY | 2024-05-18 11:26 | XMS_ITS | Encounter Summary ---
[place] [address] Care Team Providers Care Optometry Professor Name Role Phone Paulino Finley MD Primary Care Provider [phone] Reason for Visit * Reason Onset Date Comments Questions 11/25/2023 Encounter Details Date Type Department Care Team (Late st Contact Info) Description 11/25/2023 Telephone Hematology/Oncology at [address] [phone] Shad Hernandez, BRENNA Questions Social History Tobacco Use Types Packs/Day Years [...] Telephone Encounter - Shad Hernandez RN - 11/25/2023 8:38 AM EST Called and reported to [facility] that ABT of either type to treat eye infection is fine from our standpoint. ---- Message from Dmitry Bhatti MD sent at 11/24/2023 8:01 PM EST ----- Regarding: RE: antibiotics Fine with me.No interaction with our treatment. Thanks, Dmitry ----- Message ----- From: Shad Hernandez, RN Sent: 11/24/2023 9:03 AM EST To: Dmitry Bhatti MD Subject: antibiotics Pt just saw eye doctor who wants to prescribe augmentin or doxycycline for eye infection. Is either okay with you? Please adviseShad RN ----- Message ----- From: Karlie [place] Sent: 11/24/2023 8:48 AM EST To: [facility] Hem Onc Nurse Irene from [facility] called. They need to make know if any of the antibiotics they prescribefor him will have any counter effects with his current medications. [phone] documented in this encounter Plan of Treatment Upcoming Encounters Date Type Department Care Team (Late st Contact Info) Description 08/01/2024 1:00 PM EDT Office Visit Hematology/Oncology at [address] [phone] Dmitry Bhatti MD [facility] DR HEMATOLOGY/[place] [address] Ellen Mcrae APRN [facility] [place] [address] 08/01/2024 1:30 PM EDT Infusion Hematology Oncology at [address] [phone] documented as of this encounter Visit Diagnoses Not on filedocumented in this encounter Care Teams Optometry Professor Relationship Specialty Start Date End Date Paulino Finley MD [address] [place] [address] PCP - General Emergency Medicine 09/11/21 documented as of this encounter
--- OUTSIDE RECORDS SUMMARY | 2024-05-18 11:26 | XMS_ITS | Encounter Summary ---
Author Organization [facility] [place] [address] Care Team Providers Care Spark Tester Name Role Phone Paulino Finley MD Primary Care Provider [phone] Encounter Details Date Type Department Care Team (Latest Contact Info) Description 09/09/2023 Travel Social History Tobacco Use Types Packs/Day [...] 1:00 PM EDT Office Visit Hematology/Oncology at [address] [phone] Dmitry Bhatti MD [facility] DR HEMATOLOGY/[place] [address] Ellen Mcrae APRN [facility] [place] [address] 08/01/2024 1:30 PM EDT Infusion Hematology Oncology at [address] [phone] documented as of this encounter Visit Diagnoses Not on filedocumented in this encounter Care Teams Spark Tester Relationship Specialty Start Date End Date Paulino Finely MD [address] [place] [address] PCP - General Emergency Medicine 09/11/21 documented as of this encounter
--- OUTSIDE RECORDS SUMMARY | 2024-05-18 11:26 | XMS_ITS | Encounter Summary ---
Author Organization [facility] [place] [address] Care Team Providers Care Nursing Home Social Worker Name Role Phone Paulino Finley MD Primary Care Provider [phone] Encounter Details Date Type Department Care Team (Late st Contact Info) Description 08/10/2023 Notes Only Hematology/Oncology at [address] [phone] Lexy Ybarra, [facility] OFFICE OF CARE MANAGEMENT Social History Tobacco Use Types Packs/Day Years [...] as of this encounter Progress Notes * Lexy Ybarra MSW - 08/10/2023 11:10 AM EDT Reason for Referral: Brief assessment of social and emotional needs. Met with Jose during his infusion visit today to introduce myself and role of social problems specialist to assess/address barriers to getting to and through treatments; address support needs and connect with community services and resources as needed. Family/Social Supports: Jose identified his of 46 years as his primary support. They have 3daughters and one son. All of the children live out of state but have regular contact with them. Jose indicated he has a good community of friends. Living Situation/Daily Activities/Transportation: Jose manages his daily chores and activities. He keeps as busy and active as he feels up to. Fatigue is an issue which frustrates him. He does notexpect any issues with transportation. 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 He has Medicare and BCBS for insurance. He did not identify any concerns re finances orinsurance. Advance Directives: Jose has not completed his advance directive. He does have the information for this. He is meeting with an banking attorney to get his affairs in order and may address this then. Utilization of Community Resources: None at this time. Adjustment to Illness/Mental Health Concerns: Jose indicated he is coping as best he can. He hasmany interests. 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 Hehas good support from his family and friends. Identified Needs: Jose did not identify any specific needs at this time. Referrals: None at this time. Social Work Interventions: Brief assessment Supportive Counseling Plan: Informed pt of HITTING COACH availability and contact information. Will follow to assess/address psychosocial needs. JONY Blount, QUALITY INTERN, OSW-C Package Line Relief Operator [facility] documented in this encounter Plan of Treatment Upcoming Encounters Date Type Department Care Team (Late st Contact Info) Description 08/01/2024 1:00 PM EDT Office Visit Hematology/Oncology at [address] [phone] Dmitry Bhatti MD [facility] HEMATOLOGY/[place] [address] Ellen Mcrae APRN [facility] [address] 08/01/2024 1:30 PM EDT Infusion Hematology Oncology at [address] [phone] documented as of this encounter Visit Diagnoses Not on filedocumented in this encounter Care Teams Nursing Home Social Worker Relationship Specialty Start Date End Date Paulino iFnley MD [address] [place] [address] PCP - General Emergency Medicine 09/11/21 documented as of this encounter
--- OUTSIDE RECORDS SUMMARY | 2024-05-18 11:26 | XMS_ITS | Encounter Summary ---
[place] [address] Care Team Providers Care World Travel Counselor Name Role Phone Paulino Finley MD Primary Care Provider [phone] Encounter Details Date Type Department Care Team (Latest Contact Info) Description 12/02/2023 10:00 AM EST Clinical Support Audiology at [address] [phone] Ester Cardenas Asymmetrical sensorineural hearing loss Social History Tobacco Use Types Packs/Day Years [...] as of this encounter Progress Notes * Ester Cardenas - 12/02/2023 10:00 AM EST Hearing aid check. History is positive for asymmetric sensorineural hearing loss. Seen in the repair clinic reporting the following: Hearing aids are not working. The following actions were taken: Visual inspection revealed left hearing aid has intermittent green light issue. Listening check revealed weak amplification. Hearing instrument cleaned: Replaced wax guards, retention tails and domes. Removed debris from microphones and telephony engineer port. Replaced telephony engineer wire, left. Following the above measures, listening check of the hearing aids then found them to be in good working order. When speaking to patient left hearing aid started crackling. Brought hearing aid back and replaced the telephony engineer. Crackling stopped but again started back up again Sent hearing aid out for repair for crackling, intermittent green light and toggle switch. When attempting to turn hearing aid off to send out is when it was noticed that the hearing aid would not turn off. Dispensed extra supplies. PLAN: Mail hearing aid when back. AMPLIFICATION EQUIPMENT LIST: HEARING AID RIGHT LEFT Make/Model/Style Phonak Audeo M30 R Phonak Audeo M30 R Casing Color White White Serial Number [id number] Battery Size Rechargeable Rechargeable Invoice number/date [id number] 08/24/19 [id number] 08/24/19 Other Comments PROGRAM/SETTINGS Fitting Algorithm DSL Adult DSL Adult Verification Method REM, SREM, and d-jossue REM, SREM, and d-jossue SII (w/65 dBSLP) unaided/aided 49 // 67 40 // 50 Programs AutoSense Mute AutoSense Mute Other Comments >active features: VC >disabled features: PB for program change Bluetooth Ear: Right Fixed Bandwidth VC AYOUB WARRANTY Original Fit Date 09/11/2019 09/11/2019 Current Status 11/21/21 11/21/21 EARMOLD (if BTE AYOUB) Lab Earmold / Slim tube / HELENA / Dome specifics Size 03 M telephony engineer small vented dome Size 03 M telephony engineer small vented dome Impression Date Invoice number/date Other Comments ACCESSORIES Make/Model (color) Serial Number Warranty date Invoice number/date Settings Other Comments documented in this encounter Plan of Treatment Upcoming Encounters Date Type Department Care Team (Late st Contact Info) Description 08/01/2024 1:00 PM EDT Office Visit Hematology/Oncology at [address] [phone] Dmitry Bhatti MD [facility] HEMATOLOGY/[place] [address] Ellen Mcrae APRN [facility] [place] [address] 08/01/2024 1:30 PM EDT Infusion Hematology Oncology at [address] [phone] documented as of this encounter Visit Diagnoses Diagnosis Asymmetrical sensorineural hearing loss Sensorineural hearing loss, asymmetrical documented in this encounter Care Teams World Travel Counselor Relationship Specialty Start Date End Date Paulino Finley MD [address] [place] [address] PCP - General Emergency Medicine 09/11/21 documented as of this encounter
--- OUTSIDE RECORDS SUMMARY | 2024-05-18 11:26 | XMS_ITS | Encounter Summary ---
[place] [address] Care Team Providers Care Lead Advisor Name Role Phone Paulino Finley MD Primary Care Provider [phone] Reason for Visit * Reason Onset Date Comments Follow-up 08/16/2023 Encounter Details Date Type Department Care Team (Late st Contact Info) Description 08/16/2023 Telephone Hematology/Oncology at [address] [phone] Asuncion Valencia RN Follow-up Social History Tobacco Use Types Packs/Day Years [...] encounter Miscellaneous Notes * Telephone Encounter - Aby Del Rio, RN - 08/19/2023 10:34 AM EDT Return call to Jose to let him know he can restart the Nubeqa as prescribed. Instructed to call our office if his symptoms return, call [facility] ([phone]) and ask to speak with the provider typewriters functional tester if it happens to be the evening or weekend. Jose expressed understanding and is in agreement with the plan * Telephone Encounter - Aby Del Rio RN - 08/19/2023 9:54 AM EDT Call to Jose to follow up on diarrhea. He states he is feeling much better, bowels have returnedto normal, stiffness, body aches and fatigue are improved. * Telephone Encounter - Asuncion Valencia RN - 08/16/2023 9:00 AM EDT ----- Message from Karlie Webb sent at 08/16/2023 8:49 AM EDT ----- Alejandro called and is having symptoms and would like to know if this is all part of the treatment. Heis achy and having diarrhea and stomach pain. 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 Better today than Wednesday and Wednesday though. States that he was so cold yesterday, couldn't get warm. No fever (97-98 range). No fever today either. Bowels - reports that he started having diarrhea on Wednesday. Diarrhea yesterday. Diarrhea x 1 thismorning. No blood in the stool. Stool was very watery. Did not take anything for the diarrhea. Denies abdominal pain and/or cramping. Appetite: Eating and drinking ok, able to get in food and fluids without issue. Nausea- None Dizziness/lightheaded: [place] some lightheadedness this weekend and today. Changing positions slowly. [place] body aches over the weekend, this is also improving. Verified that he started taking the Nubeqa on 08/11. Received C1D1 Docetaxel and OnPro on 08/10. Recommendations/Plan: Advised that he can take Imodium for diarrhea, if this returns (none since early this morning). Advised that he take 2 tablets initially then can take 1 tablet every 2 hours, if needed for persistentdiarrhea. Advised that he continue to push fluids to avoid dehydration. Change positions slowly and carefully if feeling lightheaded. Discussed with Dina Schrader APRN: It is possibly related to the nubeqa. Have him stop the medication for a few days and see if his symptoms resolve. Call him again on and see how he is doing. Of course if it does not resolveor it worsens he may need to go to the ER for hydration etc. The aches could be related to docetaxel and onpro. Did he take the claritin? RN call back to patient: Instructed to stop the Nubeqa for now. Nursing to call and see how he is doing on . Advised that if symptoms persist or worsen he should call us back. He verbalized agreement and understanding of the plan. Verified that he did take Claritin x 5 days, as instructed following Docetaxel/OnPro given last week. Nursing to follow-up and updated providers on 08/19. documented in this encounter Plan of Treatment Upcoming Encounters Date Type Department Care Team (Late st Contact Info) Description 08/01/2024 1:00 PM EDT Office Visit Hematology/Oncology at [address] [phone] Dmitry Bhatti MD [facility] DR HEMATOLOGY/[place] [address] Ellen Mcrae APRN [facility] [place] [address] 08/01/2024 1:30 PM EDT Infusion Hematology Oncology at [address] [phone] documented as of this encounter Visit Diagnoses Not on filedocumented in this encounter Care Teams Lead Advisor Relationship Specialty Start Date End Date Paulino Finley MD [address] [place] [address] PCP - General Emergency Medicine 09/11/21 documented as of this encounter
--- OUTSIDE RECORDS SUMMARY | 2024-05-18 11:26 | XMS_ITS | Encounter Summary ---
Author Organization [place] [address] Care Team Providers Care Ammonium Nitrate Crystallizer Name Role Phone Paulino Finley MD Primary Care Provider [phone] Encounter Details Date Type Department Care Team (Late st Contact Info) Description 11/02/2023 1:00 PM EST Office Visit Hematology/Oncology at [address] [phone] Dmitry Bhatti MD [facility] DR HEMATOLOGY/[place] [address] Ellen Mcrae APRN [facility] [place] [address] Prostate cancer metastatic to multiple sites; Encounter for chemotherapy management; Fatigue, unspecified type Social History Tobacco Use [...] Sign Reading Time Taken Comments Blood Pressure 110/56 11/02/2023 12:56 PM EST Pulse 60 11/02/2023 12:56 PM EST Temperature 36.3 ??C (97.3 ??F) 11/02/2023 12:[address] Respiratory Rate 18 11/02/2023 12:56 PM EST Oxygen Saturation 98% 11/02/2023 12:56 PM EST Inhaled Oxygen Concentration - - Weight 135.6 kg (299 lb) 11/02/2023 12:56 PM EST Height 186.6 cm (6' 1.47) 11/02/2023 12:[address] Body Mass Index 38.95 11/02/2023 12:56 PM EST documented in this encounter Progress Notes * Ellen Mcrae, LOGGING SUPERVISOR - 11/02/2023 1:00 PM EST Images from the original [...] on May 13. Pathology revealed prostatic adenocarcinoma Covina 5+4. Staging CT abdomen and pelvis and [...] prostate cancer and docetaxel and Nubeqa toxicity check. Overall tolerating treatment well with expected fatigue. He is riding his exercise bike 5-7 minutes per day. He complains of exertional shortness of breath which is stable. His appetite is okay. He has no issues with his bowels. Has expected hair thinning. Reports watery eyes and runny nose from the chemotherapy which is bothersome. Chronic cough s/p COVID infectioncontinues to improve. Denies any additional episodes of hematuria. No fever, chills, or signs of infection. ROS is otherwise negative. PMH: COVID-19 infection September 03, 2023 Gross hematuria in August 24, 2023 Social History: He is here with his today. They live in [place]. Medications: Your Medications Accurate as of November 02, 2023 8:15 PM. If you have any questions, ask your nurse or doctor. Continued medications, unchanged Dose Details acetaminophen 325 mg tablet Commonly known as: Tylenol Take 2 tablets by mouth every 4 hours. 650 mg Quantity: 30 tablet Refills: 1 CALCIUM 300 ORAL Take 1 tablet by [...] Temp: [36.3 ??C (97.3 ??F)] Heart Rate: [60] Resp: [18] BP: (110)/(56) SpO2: [98 %] Heart Rate from SpO2: -- Pathology: [...] adenocarcinoma, involving 1 of 1 core. - Covina score 5 + 4 = 9 (grade [...] adenocarcinoma, involving 1 of 1 core. - Covina score 5 + 4 = 9 (grade [...] adenocarcinoma, involving 1 of 1 core. - [place] score 4 + 3 = 7 (grade group 3), 70% Marko pattern 4, tumor extent 6 mm (40% of core). - Cribriform Marko pattern 4 is present. I. PROSTATE, LEFT MID LATERAL, NEEDLE CORE BIOPSY: - Prostatic adenocarcinoma, involving 1 of 1 core. - Covina score 3 + 5 = 8 (grade [...] adenocarcinoma, involving 1 of 1 core. - [place] score 5 + 4 = 9 (grade group 5), tumor extent 2 mm (20% of core). Labs: 10/12/2023 WBC 4.45, hemoglobin 11.9, platelet count [...] Food and Drug Administration approved darolutamide (Nubeqa, [employer] tablets in combination with docetaxel for adult patients with metastatic hormone-sensitive prostate cancer (mHSPC). Efficacy was based on ARASENS ([id number]), a randomized, multicenter, double- blind, placebo-controlled clinical trial in 1306 patients with mHSPC. Patients were randomized to receive either darolutamide 600 mg orally twice daily plus docetaxel 75 mg/m2 intravenously administered every 3 weeks forup to 6 cycles or docetaxel plus placebo. All patients received a gonadotropin-releasing hormone analog concurrently or had a bilateral orchiectomy. The primary efficacy measure was overall survival (OS). Ogpm-ah-wtct progression was an additional efficacy measure. Median OS was not reached (NR) (95% CI: NR, NR) in the darolutamide plus docetaxelarm and 48.9 months (95% CI: 44.4, NR) in docetaxel plus placebo arm (HR 0.68; 95% CI: 0.57, 0.80; p<0.0001). Treatment with darolutamide and docetaxel resulted in a statistically significant delay in wkpg-nl-cnjm progression (HR 0.79; 95% CI: 0.66, 0.95; [...] treatment. He elects to proceed with treatment. 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 Contreras #Hematuria: Dr. Phelps recommended cystoscopy but patient declined and Jose has since restarted the darolutamide. He has had no additional episodes of hematuria. #fatigue: secondary to treatment. Tolerable and he remains active riding his exercise bike. Plan: Docetaxel cycle 5 today with Neulasta support. Continue darolutamide 600 mg twice daily Next visit in 3-weeks with CBC, CMP, PSA, testosterone, for his 6th dose of docetaxel 4. Continue lupron. Ellen Mcrae NP 30 minutes were spent on date of visit, including non-face to face time. documented in this encounter Plan of Treatment Upcoming Encounters Date Type Department Care Team (Late st Contact Info) Description 08/01/2024 1:00 PM EDT Office Visit Hematology/Oncology at [address] [phone] Dmitry Bhatti MD [facility] DR HEMATOLOGY/[place] [address] Ellen Mcrae APRN [facility] [place] [address] 08/01/2024 1:30 PM EDT Infusion Hematology Oncology at [address] [phone] documented as of this encounter Visit Diagnoses Diagnosis Prostate cancer metastatic to multiple sites Malignant neoplasm of prostate Encounter for chemotherapy management Fatigue, unspecified type documented in this encounter Care Teams Ammonium Nitrate Crystallizer Relationship Specialty Start Date End Date Paulino Finley MD [address] [place] [address] PCP - General Emergency Medicine 09/11/21 documented as of this encounter
--- OUTSIDE RECORDS SUMMARY | 2024-05-18 11:26 | XMS_ITS | Encounter Summary ---
[place] [address] Care Team Providers Care Carnival Worker Name Role Phone Paulino Finley MD Primary Care Provider [phone] Encounter Details Date Type Department Care Team (Late st Contact Info) Description 11/26/2023 Telephone Hematology [place] [phone] [place] Social History Tobacco Use Types Packs/Day Years [...] encounter Miscellaneous Notes * Telephone Encounter - Belle Harmon - 11/26/2023 3:47 PM EST Procedure Prior Authorization Procedure/Cpt: Cpt 14336, [address]1993 Rationale: C61 Health Plan: [facility] Authorizing Vendor: Service Order/ Authorization #: Effective Date: 11/26/2023 - 01/24/2024 Status: Approved Rendering Facility: [facility] [id number] [place] not required documented in this encounter Plan of Treatment Upcoming Encounters Date Type Department Care Team (Late st Contact Info) Description 08/01/2024 1:00 PM EDT Office Visit Hematology/Oncology at [address] [phone] Dmitry Bhatti MD [facility] HEMATOLOGY/[place] [address] Ellen Mcrae APRN [facility] [place] [address] 08/01/2024 1:30 PM EDT Infusion Hematology Oncology at [address] [phone] documented as of this encounter Visit Diagnoses Not on filedocumented in this encounter Care Teams Carnival Worker Relationship Specialty Start Date End Date Paulino Finley MD [address] [place] [address] PCP - General Emergency Medicine 09/11/21 documented as of this encounter
--- OUTSIDE RECORDS SUMMARY | 2024-05-18 11:26 | XMS_ITS | Encounter Summary ---
Author Organization [facility]ly [facility] [place] [address] Care Team Providers Care Block Trader Name Role Phone Paulino Finley MD Primary Care Provider [phone] Reason for Referral * Consultation (Urgent) - Closed Specialty Diagnoses / Procedures Referred By Huma valladares Referred To Contact Genetics Diagnoses Prostate cancer metastatic to multiple sites Dmitry Bhatti MD [facility] DR HEMATOLOGY/[place] [address] [facility] [address] [place] [address] Referral ID Status Reason Start Date Expiration Date V isits Requested Visits Authorized [id number] Closed Consult, Test & Treat 12/21/2023 12/20/2024 1 1 Encounter Details Date Type Department Care Team (Late st Contact Info) Description 12/21/2023 10:00 AM EST Office Visit Hematology/Oncology at [address] [phone] Dmitry Bhatti MD [facility] HEMATOLOGY/[place] [address] Ellen Mcrae APRN [facility] [place] [address] Prostate cancer metastatic to multiple sites (Primary Dx); Malignant neoplasm of prostate metastatic to bone; Androgen deprivation therapy Social History Tobacco Use [...] Sign Reading Time Taken Comments Blood Pressure 107/65 12/21/2023 10:19 AM EST Pulse 94 12/21/2023 10:19 AM EST Temperature 36.1 ??C (97 ??F) 12/21/2023 10:19 AM EST Respiratory Rate 16 12/21/2023 10:19 AM EST Oxygen Saturation 97% 12/21/2023 10:19 AM EST Inhaled Oxygen Concentration - - Weight 143.3 kg (316 lb) 12/21/2023 10:19 AM EST Height 186.6 cm (6' 1.47) 12/21/2023 10:[address] Body Mass Index 41.17 12/21/2023 10:19 AM EST documented in this encounter Progress Notes * Dmitry Bhatti MD - 12/21/2023 10:00 AM EST Images from the original note [...] started darolutamide and Taxotere chemotherapy. Interval history 12/21/22 Jose is in clinic for follow-up on metastatic prostate cancer, Nubeqa toxicity check and discussion on restaging scans.. He complains on fatigue, weight gain and leg swelling. Follows with fitting room maintenance mechanic Dr. Bah. He is currently on antibiotics doxycycline for eye infection he denies any pain. He has no issues with his bowels. Has expected hair thinning. Urination hasimproved significantly.. No fever, chills, or signs of infection. ROS is otherwise negative. PMH: Periorbital cellulitis, chalazion and blepharitis on doxycycline 2023 COVID-19 infection September 03, 2023 Gross hematuria in August 24, 2023 Social History: He is here with his today. They live in [place]. Medications: Your Medications Accurate as of December 21, 2023 10:26 AM. If you have any questions, ask [...] interval history PE: Constitutional: NAD HENT: Eyes: Deferred. Neck: No lymphadenopathy Cardiovascular: Irregular rate and rhythm, hx of afib. Resp: Effort normal. No respiratory distress. CTA Abdominal: Soft, NT, ND, BS+ Extremities: Bilateral leg swelling 2+ Pulse 94 Temp 36.1 ??C (97 ??F) (Temporal) Resp 16 Ht 186.6 cm (6' 1.47) Wt (!) 143.3 kg (316 lb) SpO2 97% BMI 41.17 kg/m?? Pathology: Final Diagnosis A. PROSTATE, RIGHT [...] adenocarcinoma, involving 1 of 1 core. - [place] score 5 + 4 = 9 (grade group 5), tumor extent 10 mm (80% of core). D. PROSTATE, RIGHT MID MEDIAL, NEEDLE CORE BIOPSY: - Prostatic adenocarcinoma, involving 1 of 1 core. - [place] score 4 + 5 = 9 (grade [...] 6 mm (40% of core). - Cribriform [place] pattern 4 is present. I. PROSTATE, LEFT MID LATERAL, NEEDLE CORE BIOPSY: - Prostatic adenocarcinoma, involving 1 of 1 core. - [place] score 3 + 5 = 8 (grade group 4), tumor extent 4 mm (30% of core). J. PROSTATE, LEFT MID MEDIAL, NEEDLE CORE BIOPSY: - Prostatic adenocarcinoma, involving 1 of 1 core. - [place] score 4 + 5 = 9 (grade [...] PSA 17.2 Test 7.9 Date PSA Testosterone 11/23/23 0.11 <7 11/02/23 0.18 <7 10/12/23 [...] for hematuria which resolved Jose Bee is 73 y.o.M with new [...] Food and Drug Administration approved darolutamide (Nubeqa, [employer] tablets in combination with docetaxel for adult patients with metastatic hormone-sensitive prostate cancer (mHSPC). Efficacy was based on ARASENS ([id number]), a randomized, multicenter, double- blind, placebo-controlled clinical trial in 1306 patients with mHSPC. Patients were randomized to receive either darolutamide 600 mg orally twice daily plus docetaxel 75 mg/m2 intravenously administered every 3 weeks forup to 6 cycles or docetaxel plus placebo. All patients received a gonadotropin-releasing hormone analog concurrently or had a bilateral orchiectomy. The primary efficacy measure was overall survival (OS). Epnu-yi-jbbf progression was an additional efficacy measure. Median OS was not reached (NR) (95% CI: NR, NR) in the darolutamide plus docetaxelarm and 48.9 months (95% CI: 44.4, NR) in docetaxel plus placebo arm (HR 0.68; 95% CI: 0.57, 0.80; p<0.0001). Treatment with darolutamide and docetaxel resulted in a statistically significant delay in lazn-kg-diqp progression (HR 0.79; 95% CI: 0.66, 0.95; [...] back in 6 weeks withblood work and Caseron. # Germline and somatic mutation testing: Will refer to familial cancer program for the testing #Head and neck cancer: Right base of [...] remains active riding his exercise bike. Plan: Continue darolutamide 600 mg twice daily leuprolide 22.5 mg every 3 months Referral for familial cancer program Next visit with MD with CBC, CMP, PSA, testosterone and Lupron in 6 weeks documented in this encounter Plan of Treatment Upcoming Encounters Date Type Department Care Team (Late st Contact Info) Description 08/01/2024 1:00 PM EDT Office Visit Hematology/Oncology at [address] [phone] Dmitry Bhatti MD [facility] HEMATOLOGY/[place] [address] Ellen Mcrae APRN [facility] [place] [address] 08/01/2024 1:30 PM EDT Infusion Hematology Oncology at [address] [phone] Scheduled Referrals Name Type Priority Associated Diagnoses Orde r Schedule Referral to Familial Cancer Program (Genetics) Outpatient Referral Routine Prostate cancer metastatic to multiple sites Ordered: 12/21/2023 documented as of this encounter Visit Diagnoses Diagnosis Prostate cancer metastatic to multiple sites- Primary Malignant neoplasm of prostate Malignant neoplasm of prostate metastatic to bone Malignant neoplasm of prostate Androgen deprivation therapy Encounter for therapeutic drug monitoring documented in this encounter Care Teams Block Trader Relationship Specialty Start Date End Date Paulino Finley MD [address] [place] [address] PCP - General Emergency Medicine 09/11/21 documented as of this encounter
--- OUTSIDE RECORDS SUMMARY | 2024-05-18 11:26 | XMS_ITS | Encounter Summary ---
Author Organization Formerly [facility] [place] [address] Care Team Providers Care Graduate Student Instructor Name Role Phone Paulino Finley MD Primary Care Provider [phone] Encounter Details Date Type Department Care Team (Latest Contact Info) Description 10/28/2023 Travel Social History Tobacco Use Types Packs/Day [...] 1:00 PM EDT Office Visit Hematology/Oncology at [address] [phone] Dmitry Bhatti MD [facility] DR HEMATOLOGY/[place] [address] Ellen Mcrae APRN [facility] [place] [address] 08/01/2024 1:30 PM EDT Infusion Hematology Oncology at [address] [phone] documented as of this encounter Visit Diagnoses Not on filedocumented in this encounter Care Teams Graduate Student Instructor Relationship Specialty Start Date End Date Paulino Finley MD [address] [place] [address] PCP - General Emergency Medicine 09/11/21 documented as of this encounter
--- OUTSIDE RECORDS SUMMARY | 2024-05-18 11:26 | XMS_ITS | Encounter Summary ---
Author Organization Formerly [facility] Address [facility] [place] [address] Care Team Providers Care Tire Mechanic Name Role Phone Paulino Finley MD Primary Care Provider [phone] Reason for Visit * Reason Comments Follow-up Throat is ok, no con cerns at this time. Encounter Details Date Type Department Care Team (Late st Contact Info) Description 09/13/2023 10:00 AM EST Office [place] [phone] Sriram Contreras MD [facility] [place] [address] Cancer of base of tongue Social History Tobacco Use Types Packs/Day Years [...] Sign Reading Time Taken Comments Blood Pressure - - Pulse - - Temperature - - Respiratory Rate - - Oxygen Saturation - - Inhaled Oxygen Concentration - - Weight 134.5 kg (296 lb 9.6 oz) 09/13/2023 9:57 AM EST Height 190.5 cm (6' 3) 09/13/2023 9:57 AM EST Body Mass Index 37.07 09/13/2023 9:57 AM EST documented in this encounter Progress Notes * Sriram Contreras MD - 09/13/2023 10:00 AM EST Images from the original note were not included. Head and Neck Surgery Clinic Follow Up Note Jose Bee is a 72 y.o. 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 Currently on lupron and darolutamide. Nocomplaints with regards to swallowing or voice. Taste has been off a bit since surgery but no changes. Recently had COVID. EXAMINATION Wt Readings from Last 3 Encounters: 09/13/23 134.5 kg (296 lb 9.6 oz) 08/31/23 135.6 kg (299 lb) 08/10/23 135.1 kg (297 lb 12.8 oz) General: Well developed, no distress Head/face: Normocephalic, atraumatic Oral cavity: Normal exam of the lips, teeth/gums, floor of mouth, tongue. Normal oral mucosa. Normal palate. Slight right deviation of tongue, stable. Oropharynx: Normal oropharynx. Neck: S/p right neck dissection with no adenopathy, no masses, normal thyroid, normal salivary gland exam. Trachea midline. Resp: Normal speech, no stridor, normal respirations. MSK: No trismus Procedure Flexible Fiberoptic Laryngoscopy Indication Oropharyngeal cancer Description Informed verbal consent obtained and time out performed. A flexible laryngoscope was used to evaluate bilateral nasal cavity, nasopharynx, oropharynx, hypopharynx and larynx. The examination was recorded on the Tele[employer] Unit and uploaded to the [employer]. Findings Nasal cavity normal Nasopharynx normal Oropharynx S/p tongue base resection on the right, no recurrence or second primary Larynx S/p partial epiglottic resection, no recurrence, normal mobility Hypopharynx Normal, no second primary ASSESSMENT/RECOMMENDATIONS MAGY No second primary Follow up in 1 year or PRN I appreciate the opportunity to be involved in [facility]. SRIRAM CONTRERAS MD 09/13/2023 documented in this encounter Plan of Treatment Upcoming Encounters Date Type Department Care Team (Late st Contact Info) Description 08/01/2024 1:00 PM EDT Office Visit Hematology/Oncology at [address] [phone] Dmitry Bhatti MD [facility] DR HEMATOLOGY/[place] [address] Ellen Mcrae APRN 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
--- OUTSIDE RECORDS SUMMARY | 2024-05-18 11:26 | XMS_ITS | Encounter Summary ---
[place] [address] Care Team Providers Care Stamping Machine Operator Name Role Phone Paulino Finley MD Primary Care Provider [phone] Reason for Visit * Reason Onset Date Comments Diarrhea 12/03/2023 Follow-up 12/03/2023 diarrhea Encounter Details Date Type Department Care Team (Late st Contact Info) Description 12/03/2023 Telephone Hematology/Oncology at [address] [phone] Aby Del Rio, RN Diarrhea; Follow-up (diarrhea) Social History Tobacco Use Types Packs/Day Years [...] Notes * Telephone Encounter - Aby Del Rio RN - 12/06/2023 9:20 AM EST Call to Jose to assess diarrhea. He states he started Imodium on Wednesday, he took 2 tablets initially, then 1 with the next episode of diarrhea. He has not had to take any since then and is having normal bowel movements. He was thankful for the call. * Telephone Encounter - Aby Del Rio RN - 12/03/2023 1:09 PM EST Caller: Jose Relationship: Self Clarified Two Patient Identifiers: [x] Reason For Call: Diarrhea Assessment/Symptom Review (onset, location, duration, what makes it better or worse, pertinent positives and negatives): Received C6D1 Docetaxel on 11/23/23 for met. Prostate cancer also on oral Nubeqa, he reports diarrhea that started on 11/24. Stooling 3-4x/day. He also notes he started doxycycline 100mg BID x7days on 11/24, prescribed by dip painter. He has finished that prescription, but continues to have diarrhea. He denies fever, abdominal pain/cramping, dark stools/blood in stool, dark yellow urine. Sometimes the urge to go is sudden and he needs to mccabe to a bathroom. He has not tried anything. He is going to try imodium a-d. If he does not see improvement or has worsening symptoms he knows to call [facility] on-call over the weekend. We will call to check on him on Wednesday. Select Specific Decision Support Tool Used: Telephone Triage for Oncology Nurses, 3rd Edition, ONC,Artur and Art, 2019 Name of Guideline/Protocol Used: Diarrhea Disposition/Plan of Care: Follow home care directions imodium , drink 8-10 eight-ounce glasses off fluids per day, eat foods high in soluble fiber. Patient/Caregiver verbalizes understanding of plan of care: Yes Patient/Caregiver agrees with plan: Yes Patient/Caregiver demonstrates understanding via teach back: Yes documented in this encounter Plan of Treatment Upcoming Encounters Date Type Department Care Team (Late st Contact Info) Description 08/01/2024 1:00 PM EDT Office Visit Hematology/Oncology at [address] [phone] Dmitry Bhatti MD [facility] HEMATOLOGY/[place] [address] Ellen Mcrae APRN [facility] [place] [address] 08/01/2024 1:30 PM EDT Infusion Hematology Oncology at [address] [phone] documented as of this encounter Visit Diagnoses Not on filedocumented in this encounter Care Teams Stamping Machine Operator Relationship Specialty Start Date End Date Paulino Finley MD [address] [place] [address] PCP - General Emergency Medicine 09/11/21 documented as of this encounter
--- OUTSIDE RECORDS SUMMARY | 2024-05-18 11:26 | XMS_ITS | Encounter Summary ---
Author Organization [facility] [place] [address] Care Team Providers Care Nurse Esthetician Name Role Phone Paulino Finley MD Primary Care Provider [phone] Encounter Details Date Type Department Care Team (Latest Contact Info) Description 11/16/2023 Travel Social History Tobacco Use Types Packs/Day [...] PM EDT Office Visit Hematology/Oncology at [address] [phone] Dmitry Bhatti MD [facility] DR HEMATOLOGY/[place] [address] Ellen Mcrae APRN [facility] [place] [place] [address] 08/01/2024 1:30 PM EDT Infusion Hematology Oncology at [address] [phone] documented as of this encounter Visit Diagnoses Not on filedocumented in this encounter Care Teams Nurse Esthetician Relationship Specialty Start Date End Date Paulino Finley MD [address] [place] [address] PCP - General Emergency Medicine 09/11/21 documented as of this encounter
--- OUTSIDE RECORDS SUMMARY | 2024-05-18 11:26 | XMS_ITS | Encounter Summary ---
Author Organization [facility] [place] [address] Care Team Providers Care Youth Ministry Director Name Role Phone Paulino Finley MD Primary Care Provider [phone] Encounter Details Date Type Department Care Team (Latest Contact Info) Description 09/20/2023 Travel Social History Tobacco Use Types Packs/Day [...] 1:00 PM EDT Office Visit Hematology/Oncology at [address] [phone] Dmitry Bhatti MD [facility] DR HEMATOLOGY/[place] [address] Ellen Mcrae APRN [facility] [place] [address] 08/01/2024 1:30 PM EDT Infusion Hematology Oncology at [address] [phone] documented as of this encounter Visit Diagnoses Not on filedocumented in this encounter Care Teams Youth Ministry Director Relationship Specialty Start Date End Date Paulino Finley MD [address] [place] [address] PCP - General Emergency Medicine 09/11/21 documented as of this encounter
--- OUTSIDE RECORDS SUMMARY | 2024-05-18 11:26 | XMS_ITS | Encounter Summary ---
Author Organization [facility] [place] [address] Care Team Providers Care Verification Clerk Name Role Phone Paulino Finley MD Primary Care Provider [phone] Encounter Details Date Type Department Care Team (Latest Contact Info) Description 09/21/2023 Travel Social History Tobacco Use Types Packs/Day [...] 1:00 PM EDT Office Visit Hematology/Oncology at [address] [phone] Dmitry Bhatti MD [facility] DR HEMATOLOGY/[place] [address] Ellen Mcrae APRN [facility] [place] [address] 08/01/2024 1:30 PM EDT Infusion Hematology Oncology at [address] [phone] documented as of this encounter Visit Diagnoses Not on filedocumented in this encounter Care Teams Verification Clerk Relationship Specialty Start Date End Date Paulino Finley MD [address] [place] [address] PCP - General Emergency Medicine 09/11/21 documented as of this encounter
--- OUTSIDE RECORDS SUMMARY | 2024-05-18 11:26 | XMS_ITS | Encounter Summary ---
Author Organization [facility] [place] [address] Care Team Providers Care Mail Examiner Name Role Phone Paulino Finley MD Primary Care Provider [phone] Encounter Details Date Type Department Care Team (Latest Contact Info) Description 12/01/2023 Travel Social History Tobacco Use Types Packs/Day [...] 1:00 PM EDT Office Visit Hematology/Oncology at [address] [phone] Dmitry Bhatti MD [facility] DR HEMATOLOGY/[place] [address] Ellen Mcrae APRN [facility] [place] [address] 08/01/2024 1:30 PM EDT Infusion Hematology Oncology at [address] [phone] documented as of this encounter Visit Diagnoses Not on filedocumented in this encounter Care Teams Mail Examiner Relationship Specialty Start Date End Date Paulino Finley MD [address] [place] [address] PCP - General Emergency Medicine 09/11/21 documented as of this encounter
--- OUTSIDE RECORDS SUMMARY | 2024-05-18 11:26 | XMS_ITS | Encounter Summary ---
Author Organization [facility] [place] [address] Care Team Providers Care Farm Machinery Assembler Name Role Phone Paulino Finley MD Primary Care Provider [phone] Encounter Details Date Type Department Care Team (Latest Contact Info) Description 11/23/2023 Travel Social History Tobacco Use Types Packs/Day [...] 1:00 PM EDT Office Visit Hematology/Oncology at [address] [phone] Dmitry Bhatti MD [facility] DR HEMATOLOGY/[place] [address] Ellen Mcrae APRN [facility] [place] [address] 08/01/2024 1:30 PM EDT Infusion Hematology Oncology at [address] [phone] documented as of this encounter Visit Diagnoses Not on filedocumented in this encounter Care Teams Farm Machinery Assembler Relationship Specialty Start Date End Date Paulino Finley MD [address] [place] [address] PCP - General Emergency Medicine 09/11/21 documented as of this encounter
--- OUTSIDE RECORDS SUMMARY | 2024-05-18 11:26 | XMS_ITS | Encounter Summary ---
Author Organization [facility] [place] [address] Care Team Providers Care Retort Firer Name Role Phone Paulino Finley MD Primary Care Provider Encounter Details Date Type Department Care Team (Latest Contact Info) Description 10/05/2023 Travel Social History Tobacco Use Types Packs/Day [...] 1:00 PM EDT Office Visit Hematology/Oncology at [address] [phone] Dmitry Bhatti MD [facility] DR HEMATOLOGY/[place] [address] Ellen Mcrae APRN [facility] [place] [address] 08/01/2024 1:30 PM EDT Infusion Hematology Oncology at [address] [phone] documented as of this encounter Visit Diagnoses Not on filedocumented in this encounter Care Teams Retort Firer Relationship Specialty Start Date End Date Paulino Finley MD [address] [place] [address] PCP - General Emergency Medicine 09/11/21 documented as of this encounter
--- OUTSIDE RECORDS SUMMARY | 2024-05-18 11:26 | XMS_ITS | Encounter Summary ---
Author Organization [facility] [place] [address] Care Team Providers Care Risk Control Officer Name Role Phone Paulino Finley MD Primary Care Provider [phone] Encounter Details Date Type Department Care Team (Late st Contact Info) Description 08/31/2023 11:00 AM EDT Office Visit Hematology/Oncology at [address] [phone] Dmitry Bhatti MD [facility] HEMATOLOGY/[place] [address] Dina Schrader APRN [facility] [place] [address] Malignant neoplasm of prostate metastatic to bone [...] Sign Reading Time Taken Comments Blood Pressure 199/57 08/31/2023 11:44 AM EDT Pulse 67 08/31/2023 11:44 AM EDT Temperature 36.3 ??C (97.3 ??F) 08/31/2023 11:44 AM E DT Respiratory Rate 18 08/31/2023 11:44 AM EDT Oxygen Saturation 99% 08/31/2023 11:44 AM EDT Inhaled Oxygen Concentration - - Weight 135.6 kg (299 lb) 08/31/2023 11:44 AM EDT Height 186.6 cm (6' 1.47) 08/31/2023 11:44 AM E DT Body Mass Index 38.95 08/31/2023 11:44 AM EDT documented in this encounter Patient Instructions * Patient Instructions* Dina Schrader APRN - 08/31/2023 11:00 AM EDT He will return in 3 weeks with labs prior and for infusion- docetaxel documented in this encounter Progress Notes * Dina Schrader APRN - 08/31/2023 11:00 AM EDT Images from the original note were not included. 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 Tolerates ADT reasonably well with mild hot flashes. Main complaint is fatigue. Denies any pain. Urination has been improving on ADT. Interval history 08/31/23 Jose had his first dose of docetaxel 3 weeks ago. He states that he felt very good for the first two days and then felt awful. He was fatigued, colder than usual, not able to do much. He also had some taste changes- food tasted metallic to him. That dissipated after about a week. Simon is having random shooting pain in his feet occasionally. About 10 days after treatment he started to have blood in his urine. He did both blood work and U/A and he did not have an infection. He has stopped the darolutamide and will not restart it until after he sees the urologist on the 09/06/23 . He denies any shortness of breath chest pain or cough. His appetite is okay. He has no issues with his bowels. Urine as noted above. ROS is otherwise negative. Interval history 08/10/23 Jose is here today with his for followup- chemo therapy teaching visit and also to receive his first dose of Docetaxel along with onpro. He states that he continues to feel well. He denies any shortness of breath, chest pain or cough. His appetite is good. He has noissues with his bowels or bladder. His weight remains stable. He has not received darolutamide yet.ROS is otherwise negative. PMH: Cancer (stronger s/p resection, obstructive sleep apnea on CPAP, history of pulmonary embolismon Remy, Past Medical History: Diagnosis Date Arthritis Atrial fibrillation BPH (benign prostatic hyperplasia) Cataract, right eye ED (erectile dysfunction) Hypothyroidism Pulmonary embolism Patient Active Problem List Diagnosis Atrial fibrillation March 2017: noted in ED in [facility]. Previously noted to be paroxysmal. No awareness. CHADS2-VASc=1 (age). Started on apixaban for PE Pulmonary embolism Recurrent. 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 He is to Briana for 40 yrs. 4 children - All live in different states - [place] Enjoys raising Beef Cattle and doing Civil War and Living History and shoot Black powder/Antique firearms. He enjoys builiding Firearms/Blacksmithing - [place]coal, [place], etc. Social Determinants of Health Financial Resource Strain: Not on file Food Insecurity: Not on file Transportation Needs: Not on file Physical Activity: Not on file Intimate Partner Violence: Not on file Housing Stability: Not on file Family History: grandfather had throat cancer No family history on file. Allergies: Allergies Allergen Reactions Ibuprofen CIS - Nausea/Vomiting Clindamycin Other (See Comments) Memory issues. Medications: Your Medications Accurate as of August 31, 2023 12:53 PM. If you have any questions, ask [...] Osteo Biflex Refills: 0 Review of Systems: Constitutional: Positive for fatigue and hot flashes HEENT: h/o tongue cancer Eyes: Negative. Respiratory: Negative for cough, shortness of breath and wheezing. Cardiovascular: Negative for chest pain, palpitations and leg swelling. Gastrointestinal: Negative for nausea, vomiting, abdominal pain, diarrhea, constipation and abdominal distention. Genitourinary: positive for frequency and difficulty urinating. Blood in urine Musculoskeletal: Negative. Skin: Negative. Neurological: Negative. Occ. Shooting pain in feet Hematological: Negative for adenopathy. PE: Constitutional: NAD HENT: Head: NCAT Eyes: Non-injected, anicteric. Neck: Normal ROM, supple. Cardiovascular: RRR, no murmur. Resp: Effort normal. No respiratory distress. Wheezes bilat lobes, no rales or rhonchi. Lymph: No palpable lymph nodes in cervical, supraclavicular, axillary areas. Abdominal: Soft, NT, ND, BS+ : no CVA tenderness. Skin: Skin is warm and dry. No rash or lesions noted on limited exam. No pallor. Musculoskeletal: No spinal tenderness. Normal range of motion, ambulatory. Extremities: No distal edema noted. Neurological: Alert & oriented, no focal deficits. Psych: Conversant, normal mood and affect. Temp: [36.3 ??C (97.3 ??F)] Heart Rate: [67] Resp: [18] BP: (199)/(57) SpO2: [99 %] Heart Rate from SpO2: [...] adenocarcinoma, involving 1 of 1 core. - Lawrence[place] score 4 + 5 = 9 (grade [...] adenocarcinoma, involving 1 of 1 core. - [place] score 5 + 4 = 9 (grade group 5), tumor extent 15 mm (95% of core). - Perineural invasion is identified. G. PROSTATE, LEFT BASE LATERAL, NEEDLE CORE BIOPSY: - Atypical small acinar proliferation (LOLITA), highly suspicious for minute focus (0.1 mm) of prostatic adenocarcinoma. H. PROSTATE, LEFT BASE MEDIAL, NEEDLE CORE BIOPSY: - Prostatic adenocarcinoma, involving 1 of 1 core. - [place] score 4 + 3 = 7 (grade [...] extent 2 mm (20% of core). Labs: 08/31/23 WBC 6.17 H/H 13.3/40.4 Plts 253 [...] Date PSA Testosterone 04/2023 84 08/10/23 17.2 08/24/23 2.0 <7 I discussed the potential toxicities of thioguanine with Jose Bee, which may include anorexia, nausea, vomiting, stomatitis, GI perforation, typhlitis, enterocolitis, diarrhea, jaundice, biliary obstruction, elevated hepatic enzymes, hyperbilirubinemia, hepatomegaly, hepatitis, peliosis hepatis, veno-occlusive disease, hepatic necrosis, ascites, splenomegaly, anemia, leukopenia, neutropenia, thrombocytopenia, pancytopenia, bleeding, infection, tumor lysis syndrome, metabolic acidosis, hyperkalemia, hyperphosphatemia, hypocalcemia, renal tubular obstruction, nephrolithiasis, weight gain, and fluid retention, and he agrees to proceed with the plan of care. Imagin06/04/23 CT abdomen and pelvis: Impression: Enlarged prostate gland. Development of thickening of the wall of urinary bladder and moderate WMT:. It may be secondary to chronic bladder outlet obstruction. Osseous metastatic disease,retroperitoneal adenopathy, suspicious for metastatic disease. 06/04/2023 nuclear bone scan: Impression: Findings are diffuse osseous metastatic disease. Assessment and Plan: Diagnosis: Prostatic adenocarcinoma metastatic to multiple bones and lymph nodes, high risk Treatment: -05/27/23 Degarelix 240 mg -07/01/23 - Lupron 7.5 mg Jose Bee is 72 y.o.M with new diagnosis of metastatic prostate cancer, high risk. He already started androgen deprivation therapy under care of Dr. Phelps. We discussed prognosis of metastatic prostate cancers with median survival between 4 and 5 years. We talk about treatment options on top of androgen deprivation including chemotherapy with docetaxel versus combination of docetaxel with darolutamide or abiraterone/prednisone versus secondary hormonal therapy including abiraterone/prednisone, enzalutamide to apalutamide versus combination of secondary hormonal therapy and PARP inhibitor versus ADT alone which would be inferior to combination of chemotherapy and secondary hormonal therapy. I recommended chemotherapy with docetaxel 75 mg per metered squared with growth factor support every 3 weeks for total of 6 cycles and darolutamide 600 mg twice daily. On June 12, 2022, the Food and Drug Administration approved darolutamide (Nubeqa, Jiongji App.) tablets in combination with docetaxel for adult patients with metastatic hormone-sensitive prostate cancer (mHSPC). Efficacy was based on ARASENS ([id number]), a randomized, multicenter, double- blind, placebo-controlled clinical trial in 1306 patients with mHSPC. Patients were randomized to receive either darolutamide 600 mg orally twice daily plus docetaxel 75 mg/m2 intravenously administered every 3 weeks forup to 6 cycles or docetaxel plus placebo. All patients received a gonadotropin-releasing hormone analog concurrently or had a bilateral orchiectomy. The primary efficacy measure was overall survival (OS). [id number] progression was an additional efficacy measure. Median OS was not reached (NR) (95% CI: NR, NR) in the darolutamide plus docetaxelarm and 48.9 months (95% CI: 44.4, NR) in docetaxel plus placebo arm (HR 0.68; 95% CI: 0.57, 0.80; p<0.0001). Treatment with darolutamide and docetaxel resulted in a statistically significant delay in hrfv-ko-tnfz progression (HR 0.79; 95% CI: 0.66, 0.95; [...] weeks after the start of darolutamide treatment. We discussed side effects of docetaxel which include but not limited to nausea, vomiting, fatigue, hair loss, fluid retention, numbness and tingling in extremities, pain, low blood counts requiring transfusion, allergic reaction, anaphylactic reaction, infection including life-threatening infectionand . We discussed side effects of darolutamide including fatigue, elevated blood pressure, elevated liver enzymes, rash, seizures. All questions were answered to patient's satisfaction. He is interested to proceed with darolutamide and docetaxel. Informed verbal consent was obtained. We will plan to start treatment in the next 3to 4 weeks. We will complete staging with CT scan of chest. We will continue androgen deprivation therapy #Germline and somatic mutation testing #Head and neck cancer: Right base of tongue and vallecula Stage: T2N0M0 P16 positive Treatment: TLM and open resection with neck dissection -12 July [address] Contreras 08/31/23 He tolerated the first cycle reasonably [...] receive the next dose of docetaxel today Plan: Continue Lupron next due in early November Hold darolutamide 600 mg twice daily until after seen by urologist Next visit in 3-weeks with CBC, CMP, PSA, testosterone, for his third dose of docetaxel. He will receive the second dose today. documented in this encounter Plan of Treatment Upcoming Encounters Date Type Department Care Team (Late st Contact Info) Description 08/01/2024 1:00 PM EDT Office Visit Hematology/Oncology at [address] [phone] Dmitry Bhatti MD [facility] DR HEMATOLOGY/[place] [address] Ellen Mcrae APRN [facility] [place] [address] 08/01/2024 1:30 PM EDT Infusion Hematology Oncology at [address] [phone] documented as of this encounter Visit Diagnoses Diagnosis Malignant neoplasm of prostate metastatic to bone Malignant neoplasm of prostate documented in this encounter Care Teams Risk Control Officer Relationship Specialty Start Date End Date Paulino Finley MD [address] [place] [address] PCP - General Emergency Medicine 09/11/21 documented as of this encounter
--- OUTSIDE RECORDS SUMMARY | 2024-05-18 11:26 | XMS_ITS | Encounter Summary ---
Author Organization [facility] [place] [address] Care Team Providers Care Cigar Binder Name Role Phone Paulino Finley MD Primary Care Provider [phone] Reason for Visit * Reason Onset Date Comments Other 08/11/2023 Encounter Details Date Type Department Care Team (Late st Contact Info) Description 08/11/2023 Telephone Hematology/Oncology at [address] [phone] Shad Hernandez RN Other Social History Tobacco Use Types Packs/Day Years [...] Encounter - Shad Hernandez RN - 08/11/2023 2:32 PM EDT Pt called to report he received darolutamide (Nubeqa) today. He confirmed correct dosage and how totake medication. He will start tonight. Advised to call with any questions or concerns. documented in this encounter Plan of Treatment Upcoming Encounters Date Type Department Care Team (Late st Contact Info) Description 08/01/2024 1:00 PM EDT Office Visit Hematology/Oncology at [address] [phone] Dmitry Bhatti MD [facility] DR HEMATOLOGY/[place] [address] Ellen Mcrae APRN [facility] [place] [address] 08/01/2024 1:30 PM EDT Infusion Hematology Oncology at [address] [phone] documented as of this encounter Visit Diagnoses Not on filedocumented in this encounter Care Teams Cigar Binder Relationship Specialty Start Date End Date Paulino Finley MD [address] [place] [address] PCP - General Emergency Medicine 09/11/21 documented as of this encounter
--- OUTSIDE RECORDS SUMMARY | 2024-05-18 11:26 | XMS_ITS | Encounter Summary ---
Author Organization [facility] [place] [address] Care Team Providers Care Fixture Builder Name Role Phone Paulino Finley MD Primary Care Provider [phone] Encounter Details Date Type Department Care Team (Late st Contact Info) Description 08/24/2023 Telephone Hematology/Oncology at [address] [phone] Asuncion Valencia RN Social History Tobacco Use Types Packs/Day [...] encounter Miscellaneous Notes * Telephone Encounter - Meghan Odonnell RN - 08/27/2023 11:[address] Bhatti, No UTI, no abx needed. Call to Jose to let him know he should continue to hold nubeqa until seen in clinic on 08/31. He agrees with this plan. * Telephone Encounter - Meghan Odonnell RN - 08/27/2023 8:57 AM EDT Images from the original note were not included. * Telephone Encounter - Aby Del Rio RN - 08/26/2023 9:06 AM EDT Final result for UA C&S with gram positive yung Spoke to Jose to follow up on his contact with his urology office. He was told by Dr. Phelps's office that they won't prescribe an antibiotic for him since they didn't order the test. He uses [facility] in [facility]. He is also wondering if he should resume darolutamide (Nubeqa), or continue to hold until his appt on 08/31. * Telephone Encounter - Asuncion Valencia RN - 08/24/2023 12:55 PM EDT Diagnosis: Prostate CA Treatment: Reason for Call: RN follow-up on labs and U/A done today for hematuria noted yesterday (see note from Ricarda Antunez RN). Assessment: Received results of UA done today at [facility] and reviewed with Dr. Bhatti. UA showed: Neg Leukocytes. Large amount of blood. C&S is being done. Recommendations/Plan: Discussed with Dr. Bhatti. Would like patient to contact urologist for management. Patient is established with urology at [facility] ([place]). Dr. Bhatti feels that the hematuria is not likely to be related to the Darolutamide but will have patient hold this until his appt with Dr. Bhatti next 08/31. RN call to patient to review UA results. States that he continues to have visible blood in urine. Instructed on plan above: Hold Darolutamide until appt next week with Magy Contact urology at [facility] to make appt for evaluation. Mr. Bee agrees with plan above. Nursing to follow-up on results of C&S later this week and review with Dr. Bhatti. documented in this encounter Plan of Treatment Upcoming Encounters Date Type Department Care Team (Late st Contact Info) Description 08/01/2024 1:00 PM EDT Office Visit Hematology/Oncology at [address] [phone] Dmitry Bhatti MD [facility] HEMATOLOGY/[place] [address] Ellen Mcrae APRN [facility] [place] [address] 08/01/2024 1:30 PM EDT Infusion Hematology Oncology at [address] [phone] documented as of this encounter Procedures Procedure Name Priority Date/Time Associated Diagnosis Comments URINE CULTURE Routine 08/26/2023 8:10 AM EDT documented in this encounter Results * Urine culture (08/26/2023 8:10 AM EDT) Urine Culture gram positive yung Other UA colony count <10,000 colonies/mL Historical Provider MICROBIOLOGY - NERAL ORDERABLES documented in this encounter Visit Diagnoses Not on filedocumented in this encounter Care Teams Fixture Builder Relationship Specialty Start Date End Date Paulino Finley MD [address] [place] [address] PCP - General Emergency Medicine 09/11/21 documented as of this encounter
--- OUTSIDE RECORDS SUMMARY | 2024-05-18 11:26 | XMS_ITS | Encounter Summary ---
Author Organization [facility] [place] [address] Care Team Providers Care Cotton Bag Clipper Name Role Phone Paulino Finley MD Primary Care Provider [phone] Encounter Details Date Type Department Care Team (Late st Contact Info) Description 09/07/2023 [place] [phone] Casi Dong Social History Tobacco Use Types Packs/Day Years [...] as of this encounter Progress Notes * Casi Dong - 09/07/2023 9:55 AM EDT Call placed to [facility] regarding paperwork that Jose received about renewal. I confirmed that Jose is enrolled in the program through 08/06/2024 and the client account representative advised that the paperwork was sent out in error. Call placed to patient, spoke to spouse, advised he is enrolled through 08/06/2024 and he does not need to complete re enrollment paperwork, per [employer]. documented in this encounter Plan of Treatment Upcoming Encounters Date Type Department Care Team (Late st Contact Info) Description 08/01/2024 1:00 PM EDT Office Visit Hematology/Oncology at [address] [phone] Dmitry Bhatti MD [facility] DR HEMATOLOGY/[place] [address] Ellen Mcrae APRN [facility] [place] [address] 08/01/2024 1:30 PM EDT Infusion Hematology Oncology at [address] [phone] documented as of this encounter Visit Diagnoses Not on filedocumented in this encounter Care Teams Cotton Bag Clipper Relationship Specialty Start Date End Date Paulino Finley MD [address] [place] [address] PCP - General Emergency Medicine 09/11/21 documented as of this encounter
--- OUTSIDE RECORDS SUMMARY | 2024-05-18 11:26 | XMS_ITS | Encounter Summary ---
Author Organization Formerly [facility] [place] [address] Care Team Providers Care Basket Sorter Name Role Phone Paulino Finley MD Primary Care Provider [phone] Encounter Details Date Type Department Care Team (Late st Contact Info) Description 09/21/2023 11:30 AM EST Office Visit Hematology/Oncology at [address] [phone] Ellen Mcrae APRN [facility] [place] [address] Prostate cancer metastatic to multiple sites; Hematuria, unspecified type Social History Tobacco Use [...] Sign Reading Time Taken Comments Blood Pressure 102/60 09/21/2023 11:37 AM EST Pulse 64 09/21/2023 11:37 AM EST Temperature 36.5 ??C (97.7 ??F) 09/21/2023 1 1:37 AM EST Respiratory Rate 18 09/21/2023 11:3 7 AM EST Oxygen Saturation 99% 09/21/2023 11: 37 AM EST Inhaled Oxygen Concentration - - Weight 135.8 kg (299 lb 6.4 oz) 023 11:37 AM EST Height 186.6 cm (6' 1.47) 09/21/2023 1 1:37 AM EST Body Mass Index 39 09/21/2023 11:37 AM EST documented in this encounter Progress Notes * Dina Schrader APRN - 09/21/2023 11:30 AM EST Patient was seen by his urologist Dr Phelps 09/02/23. No obvious reason was found for his hematuria.Dr Phelps recommended that he have a cystoscopy with bilateral retrograde pyelogram and possible resection of the bladder tumor on 10/04/23. He will stay off the darolutamide until after this procedure. * Ellen Mcrae APRN - 09/21/2023 11:30 AM EST Images from the original note [...] on May 13. Pathology revealed prostatic adenocarcinoma [place] 5+4. Staging CT abdomen and pelvis and bone scan demonstrated diffuse bony metastatic disease along with retroperitoneal and pelvic lymphadenopathy. He was started on degarelix on May 27 and was switched to Lupron 7.5 mg on July 01 and continues on lupron q 3months.He has since started darolutamide and Taxotere chemotherapy. Interval history 09/21/23 Jose is seen for on treatment visit. He is tolerating docetaxel chemotherapy and today is cycle #3/6. Overall he is doing well. Unfortunately he was diagnosed with COVID two days after his last chemotherapy. He had a cough and hoarseness. Cough is resolving. Hoarseness r esolved. After his first cycle of treatment he had an episode of hematuria which resolved. He saw Dr. Phelps from Urology who recommended a cystoscopy. Darolutamide was to be held until after the procedure, however his cystoscopy was rescheduled due to his COVID diagnosis. Jose restarted the darolutamide about 2 weeks ago and repeat UA showed negative for blood today. At this time we discussed remaining off the darolutamide until he talks with his Urologist. He denies any shortness of breath chest pain or cough. His appetite is okay. He has no issues with his bowels. Urine as noted above. No fever, chills, or signs of infection. ROS is otherwise negative. Social History: He is here with his today. They live in [place]. Medications: Your Medications Accurate as of September 21, 2023 2:40 PM. If you have any questions, ask [...] NT, ND, BS+ Extremities: No swelling Temp: [36.5 ??C (97.7 ??F)] Heart Rate: [64] Resp: [18] BP: (102)/(60) SpO2: [99 %] Heart Rate from SpO2: [...] adenocarcinoma, involving 1 of 1 core. - [place] score 5 + 4 = 9 (grade [...] 6 mm (40% of core). - Cribriform [place] pattern 4 is present. I. PROSTATE, LEFT MID LATERAL, NEEDLE CORE BIOPSY: - Prostatic adenocarcinoma, involving 1 of 1 core. - [place] score 3 + 5 = 8 (grade [...] adenocarcinoma, involving 1 of 1 core. - [place] score 5 + 4 = 9 (grade group 5), tumor extent 2 mm (20% of core). Labs: 08/31/23 WBC 6.00 H/H 12.9/31.2 Plts 231 [...] PSA 17.2 Test 7.9 Date PSA Testosterone 08/31/23 1.6 04/2023 84 08/10/23 17.2 08/24/23 2.0 <7 Imagin06/04/23 CT abdomen and pelvis: Impression: Enlarged [...] bones and lymph nodes, high risk Treatment: -7/20/23 Degarelix 240 mg -07/01/23 - Lupron 7.5 mg -08/10/23 to present: Lupron 22.5mg -08/24/23 to present: Taxotere 75mg/m2 plus darolutamide 600mg BID Jose Bee is 72 y.o.M with new [...] Food and Drug Administration approved darolutamide (Nubeqa, [employer] tablets in combination with docetaxel for adult patients with metastatic hormone-sensitive prostate cancer (mHSPC). Efficacy was based on ARASENS ([id number]), a randomized, multicenter, double- blind, placebo-controlled clinical trial in 1306 patients with mHSPC. Patients were randomized to receive either darolutamide 600 mg orally twice daily plus docetaxel 75 mg/m2 intravenously administered every 3 weeks forup to 6 cycles or docetaxel plus placebo. All patients received a gonadotropin-releasing hormone analog concurrently or had a bilateral orchiectomy. The primary efficacy measure was overall survival (OS). Puue-eg-ufsm progression was an additional efficacy measure. Median OS was not reached (NR) (95% CI: NR, NR) in the darolutamide plus docetaxelarm and 48.9 months (95% CI: 44.4, NR) in docetaxel plus placebo arm (HR 0.68; 95% CI: 0.57, 0.80; p<0.0001). Treatment with darolutamide and docetaxel resulted in a statistically significant delay in dcoy-dz-xhqm progression (HR 0.79; 95% CI: 0.66, 0.95; [...] and hypocalcemia. The recommended darolutamide dose for [facility] is 600 mg (two 300 mg tablets) [...] if Urology is still recommending the cystoscopy. 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 Contreras #Hematuria: recommend he hold darolutamide as this is [...] until he can confirm Urology recommendations. Plan: Continue Lupron next due in early November Hold darolutamide 600 mg twice daily until after seen by urologist Next visit in 3-weeks with CBC, CMP, PSA, testosterone, for his fourth dose of docetaxel. He will receive the second dose today. Ellen Mcrae NP 40 minutes were spent on date of visit, including non-face to face time including consultation withDr. Bhatti regarding the plan of care. documented in this encounter Plan of Treatment Upcoming Encounters Date Type Department Care Team (Late st Contact Info) Description 08/01/2024 1:00 PM EDT Office Visit Hematology/Oncology at [address] [phone] Dmitry Bhatti MD [facility] HEMATOLOGY/[place] [address] Ellen Mcrae APRN [facility] [place]ICAL [place] [address] 08/01/2024 1:30 PM EDT Infusion Hematology Oncology at [address] [phone] documented as of this encounter Visit Diagnoses Diagnosis Prostate cancer metastatic to multiple sites Malignant neoplasm of prostate Hematuria, unspecified type documented in this encounter Care Teams Basket Sorter Relationship Specialty Start Date End Date Paulino Finley MD [address] [place] [address] PCP - General Emergency Medicine 09/11/21 documented as of this encounter
--- OUTSIDE RECORDS SUMMARY | 2024-05-18 11:26 | XMS_ITS | Encounter Summary ---
[place] [address] Care Team Providers Care Pouch Maker Name Role Phone Paulino Finley MD Primary Care Provider [phone] Reason for Visit * Reason Onset Date Comments Public Health Screening 09/03/2023 COVID Encounter Details Date Type Department Care Team (Late st Contact Info) Description 09/03/2023 Telephone Hematology/Oncology at [address] [phone] Meghan Odonnell RN Public Health Screening (COVID) Social History Tobacco Use Types Packs/Day Years [...] Telephone Encounter - Meghan Odonnell RN - 09/03/2023 10:45 AM EDT Caller: Jose Relationship: Self Clarified Two Patient Identifiers: [x] Reason For Call: Public Health Screening (COVID) Assessment/Symptom Review (onset, location, duration, what makes it better or worse, pertinent positives and negatives): 910: Return call to Jose to assess symptoms. He states he has had significant cold symptoms fora couple days now (started the day after his chemo). He had docetaxel & onpro on Wednesday08/31/23. He does not report fevers but has headache, sore throat, stuffy nose and body aches. I asked that he take a COVID test and call me back. 932: Return call from Jose to report COVID test was positive. Reviewed with Kyler Schrader APRN and she prescribed Paxlovid. Also advised he could take dayquil for congestion. Of note he is already taking claritin for onpro side effects. He also notes frequent urination. Saw Dr. Phelps at [facility] urology yesterday, they had a planned a procedure on Thursday 09/06. From Dr. Phelps note: Plan The etiology of the gross hematuria is not obvious at this point in time. We generally recommend completing a hematuria work-up with cystoscopy and retrograde pyelogram. I could do a cystoscopy here in the office, but I would not be able to accomplish the retrograde pyelogram unless the procedure was done in the operating room. We have elected to do cystoscopy with bilateral retrograde pyelogram and possible transurethral resection of bladder tumor (showed a bladder tumor be identified) at the next possible surgical day. Osbaldo then decide if he can restart on his oral darolutamide Orders Urinalysis Dip Only Today C61 - Malignant neoplasm of prostate I advised he call Dr. Phelps's office to let him know about him being COVID positive. Review of Systems Related to Reason for Call: System POS NEG Not Applicable Head (ENT /Neuro) [x] [] [] Cardiac [] [] [x] Respiratory [x] [] [] GI [] [x] [] [x] [] [] Musculoskeletal [x] [] [] Integumentary [] [] [x] Mental Health [] [] [x] Select Specific Decision Support Tool Used: None available, provider to review Disposition/Plan of Care: Defer to provider recommendation-take paxlovid as prescribed. Patient/Caregiver verbalizes understanding of plan of care: Yes Patient/Caregiver agrees with plan: Yes Advised patient/caregiver to: call office back for any new or worsening symptoms Patient/Caregiver demonstrates understanding via teach back: Yes * Telephone Encounter - Meghan Odonnell RN - 09/03/2023 10:45 AM EDT ----- Message from Deonna Rooney sent at 09/03/2023 8:25 AM EDT ----- Jose called in letting us know that since his infusion the other day he feels like he has the flu, achy , stuffy head. He is wondering if he is allowed to take a flu/cold medication? Best call back number [phone] documented in this encounter Plan of Treatment Upcoming Encounters Date Type Department Care Team (Late st Contact Info) Description 08/01/2024 1:00 PM EDT Office Visit Hematology/Oncology at [address] [phone] Dmitry Bhatti MD [facility] DR HEMATOLOGY/[place] [address] Ellen Mcrae APRN [facility] [place] [address] 08/01/2024 1:30 PM EDT Infusion Hematology Oncology at [address] [phone] documented as of this encounter Visit Diagnoses Not on filedocumented in this encounter Care Teams Pouch Maker Relationship Specialty Start Date End Date Paulino Finley MD [address] [place] [address] PCP - General Emergency Medicine 09/11/21 documented as of this encounter
--- OUTSIDE RECORDS SUMMARY | 2024-05-18 11:27 | XMS_ITS | Encounter Summary ---
[place] [address] Care Team Providers Care Director Of Contracts Name Role Phone Jovon Sifuentes MD Primary Care Provider [phone] Encounter Details Date Type Department Care Team (Latest Contact Info) Description 03/02/2019 9:30 AM EDT Office Visit Audiology at [address] [phone] Marianela Vyas, DAVID [facility] [place] [address] Asymmetrical sensorineural hearing loss; Tinnitus, bilateral Social History Tobacco Use Types Packs/Day Years [...] as of this encounter Progress Notes * Marianela Vyas, DAVID - 03/02/2019 9:30 AM EDT AUDIOLOGIC EVALUATION Jose Bee was seen on 03/02/2019 for an audiologic evaluation as medically indicated in conjunction with Dr. Contreras in otolaryngology. Please refer to the scanned audiogram listed under Procedures for findings, impressions and recommendations. Sudarshan Orozco, [facility] Board [place] [address] documented in this encounter Plan of Treatment Upcoming Encounters Date Type Department Care Team (Late st Contact Info) Description 08/01/2024 1:00 PM EDT Office Visit Hematology/Oncology at [address] [phone] Dmitry Bhatti MD [facility] DR HEMATOLOGY/[place] [address] Ellen Mcrae APRN [facility] [place] [address] 08/01/2024 1:30 PM EDT Infusion Hematology Oncology at [address] [phone] documented as of this encounter Procedures Procedure Name Priority Date/Time Associated Diagnosis Comments COMPREHENSIVE HEARING TEST Routine 03/02/2019 9:21 AM EDT documented in this encounter Results * Comprehensive hearing test (03/02/2019 9:21 AM EDT) 03/02/2019 9:21 AM EDT Narrative [employer] - 03/02/2019 9:21 AM EDT - Follow up as scheduled with Dr. Contreras. - Re-evaluation of hearing in one year or sooner as per otolaryngology or if new concerns arise. - Consider trial of amplification if medically cleared by otolaryngology. A hearing aid series will be scheduled at Mr. Bee's convenience. - Use of communication strategies in adverse listening environments (e.g. reducing background noise and speaking [id number]). - Use of hearing protection when exposed to potentially hazardous sound levels. Procedure Note Unknown - 03/02/2019 - Follow up as scheduled with Dr. Contreras. - Re-evaluation of hearing in one year or sooner as per otolaryngology orif new concerns arise. - Consider trial of amplification if medically cleared by otolaryngology.A hearing aid series will be scheduled at Mr. Bee's convenience. - Use of communication strategies in adverse listening environments (e.g.reducing background noise and speaking [id number]). - Use of hearing protection when exposed to potentially hazardous soundlevels. Unknown AUDIOLOGY SERVICES [facility] [employer]LES [employer] [facility] documented in this encounter Visit Diagnoses Diagnosis Asymmetrical sensorineural hearing loss Sensorineural hearing loss, asymmetrical Tinnitus, bilateral Unspecified tinnitus documented in this encounter Care Teams Director Of Contracts Relationship Specialty Start Date End Date Jovon Sifuentes MD [address] [place] [address] PCP - General 09/30/10 09/10/21 documented as of this encounter
--- OUTSIDE RECORDS SUMMARY | 2024-05-18 11:27 | XMS_ITS | Encounter Summary ---
[place] [address] Care Team Providers Care Market Research Senior Project Manager Name Role Phone Jovon Sifuentes MD Primary Care Provider Encounter Details Date Type Department Care Team (Late Contact Info) Description 08/14/2019 Telephone [place] [phone] Angy Noriega Social History Tobacco Use Types Packs/Day Years [...] encounter Miscellaneous Notes * Telephone Encounter - Angy Shelby - 08/14/2019 1:24 PM EDT Lmx1 for patient to call back and schedule follow up appointment with JYOTHI with CT scans. In October-November. documented in this encounter Plan of Treatment Upcoming Encounters Date Type Department Care Team (Late st Contact Info) Description 08/01/2024 1:00 PM EDT Office Visit Hematology/Oncology at [address] [phone] Dmitry Bhatti MD [facility] DR HEMATOLOGY/[place] [address] Ellen Mcrae APRN [facility] [place] [address] 08/01/2024 1:30 PM EDT Infusion Hematology Oncology at [address] [phone] documented as of this encounter Visit Diagnoses Not on filedocumented in this encounter Care Teams Market Research Senior Project Manager Relationship Specialty Start Date End Date Jovon Sifuentes MD [address] [place] [address] PCP - General 09/30/10 09/10/21 documented as of this encounter
--- OUTSIDE RECORDS SUMMARY | 2024-05-18 11:27 | XMS_ITS | Encounter Summary ---
Author Organization [facility] Address [facility] [place] [address] Care Team Providers Care Pathologist Name Role Phone Paulino Finley MD Primary Care Provider Reason for Visit * Reason Comments Advice Only * Consultation (Routine) - Closed Specialty Diagnoses / Procedures Referred By Huma valladares Referred To Contact Hematology and Oncology Diagnoses Malignant neoplasm of prostate Procedures treatment options Dinesh Phelps MD [address] [place] [address] Dmitry Steven MD [facility] HEMATOLOGY/[place] [address] Referral ID Status Reason Start Date Expiration Date Visits Re quested Visits Authorized [id number] Closed 06/14/2023 06/13/2024 1 1 Encounter Details Date Type Department Care Team (Late st Contact Info) Description 07/08/2023 1:00 PM EDT Office Visit Hematology [place] [address] Dmitry Steven MD 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); Androgen deprivation therapy Social History Tobacco Use Types Packs/Day Years Used Date Smoking Tobacco: Former Cigarettes 12 04 1 969 - 1995 Pipe Smokeless Tobacco: [...] Sign Reading Time Taken Comments Blood Pressure 112/61 07/08/2023 12:49 PM EDT Pulse 66 07/08/2023 12:49 PM EDT Temperature 36.3 ??C (97.3 ??F) 07/08/2023 1 2:49 PM EDT Respiratory Rate 18 07/08/2023 12:4 9 PM EDT Oxygen Saturation 98% 07/08/2023 12: 49 PM EDT Inhaled Oxygen Concentration - - Weight 134.8 kg (297 lb 2.9 oz) 023 12:49 PM EDT Height 186.6 cm (6' 1.47) 07/08/2023 1 2:49 PM EDT Body Mass Index 38.71 07/08/2023 12:49 PM EDT documented in this encounter Progress Notes * Dmitry Steven MD - 07/08/2023 1:00 PM EDT Images from the original note were not included. 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 Pathology revealed prostatic adenocarcinoma Dayton 5+4. Staging CT abdomen and pelvis and bone scan demonstrated diffuse bony metastatic disease along with retroperitoneal and pelvic lymphadenopathy. He was started on degarelix on May 27 and was switched to Lupron 7.5 mg on July 01. Tolerates ADT reasonably well with mild hot flashes. Main complaint is fatigue. Denies any pain. Urination has been improving on ADT. PMH: Cancer (stronger s/p resection, obstructive sleep apnea on CPAP, history of pulmonary embolismon Eliquis, Past Medical History: Diagnosis Date Arthritis Atrial fibrillation BPH (benign prostatic hyperplasia) Cataract, right eye ED (erectile dysfunction) Hypothyroidism Pulmonary embolism Patient Active Problem List Diagnosis Atrial fibrillation March 2017: noted in ED in [facility]. Previously noted to be paroxysmal. 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 He is to Briana for 40 yrs. 4 children - All live in different states - [place] Enjoys raising Beef Cattle and doing Civil War and Living History and shoot Black powder/Antique firearms. He enjoys builiding Firearms/Blacksmithing - Charcoal, Rowley, etc. Social Determinants of Health Financial Resource Strain: Not on file Food Insecurity: Not on file Transportation Needs: Not on file Physical Activity: Not on file Housing Stability: Not on file Family History: grandfather had throat cancer No family history on file. Allergies: Allergies Allergen Reactions Ibuprofen CIS - Nausea/Vomiting Clindamycin Other (See Comments) Memory issues. Medications: Your Medications Accurate as of July 08, 2023 2:14 PM. If you have any questions, ask your nurse or doctor. New Medications Dose Details darolutamide 300 mg tablet Commonly known as: Nubeqa Take 2 tablets by mouth 2 times daily. Please call clinic before starting medication Started by: DMITRY STEVEN MD 600 mg Quantity: 120 tablet Refills: 11 Continued medications with new dosing Dose Details acetaminophen 325 mg tablet Commonly known as: Tylenol Take 2 tablets by mouth every 4 hours. What changed: when to take this reasons to take this 650 mg Quantity: 30 tablet Refills: 1 Continued medications, unchanged Dose Details cholecalciferol 1,000 unit tablet Commonly known as: Vitamin D3 Take by mouth daily. Refills: 0 Eliquis 5 mg tablet 2 times daily. Generic drug: apixaban Refills: 0 melatonin 5 mg tablet Take 10 mg by mouth nightly. 10 mg Refills: 0 OSTEO BI-FLEX ORAL Take by mouth 2 times daily. Refills: 0 tadalafiL 10 mg tablet Commonly [...] Genitourinary: positive for frequency and difficulty urinating. Musculoskeletal: Negative. Skin: Negative. Neurological: Negative. Hematological: Negative for adenopathy. PE: Constitutional: NAD [...] deficits. Psych: Conversant, normal mood and affect. Pathology: Final Diagnosis A. PROSTATE, RIGHT BASE [...] adenocarcinoma, involving 1 of 1 core. - Dayton score 5 + 4 = 9 (grade group 5), tumor extent 10 mm (80% of core). D. PROSTATE, RIGHT MID MEDIAL, NEEDLE CORE BIOPSY: - Prostatic adenocarcinoma, involving 1 of 1 core. - Dayton score 4 + 5 = 9 (grade [...] adenocarcinoma, involving 1 of 1 core. - Dayton score 5 + 4 = 9 (grade [...] 3 = 7 (grade group 3), 70% Dayton pattern 4, tumor extent 6 mm (40% of core). - Cribriform Dayton pattern 4 is present. I. PROSTATE, LEFT MID LATERAL, NEEDLE CORE BIOPSY: - Prostatic adenocarcinoma, involving 1 of 1 core. - Marko score 3 + 5 = 8 (grade group 4), tumor extent 4 mm (30% of core). J. PROSTATE, LEFT MID MEDIAL, NEEDLE CORE BIOPSY: - Prostatic adenocarcinoma, involving 1 of 1 core. - Dayton score 4 + 5 = 9 (grade group 5), tumor extent 2 mm (15% of core). K. PROSTATE, LEFT APEX LATERAL, NEEDLE CORE BIOPSY: - Benign prostatic tissue. L. PROSTATE, LEFT APEX MEDIAL, NEEDLE CORE BIOPSY: - Prostatic adenocarcinoma, involving 1 of 1 core. - Dayton score 5 + 4 = 9 (grade group 5), tumor extent 2 mm (20% of core). Labs: Recent Results (from the past 72 hour(s)) Testosterone, total Result Value Ref Range Testo Total <0.12 (L) 1.93 - 7.40 ng/mL Comprehensive metabolic panel (non-fasting) Result Value Ref Range Glucose Lvl 73 65 - 199 mg/dL BUN 16 10 - 20 mg/dL Creatinine 1.12 0.80 - 1.50 mg/dL Sodium 143 135 - 145 mmol/L Potassium 4.4 3.5 - 5.0 mmol/L Chloride 109 (H) 98 - 107 mmol/L CO2 24 22 - 31 mmol/L Anion Gap 10 5 - 15 mmol/L Calcium 9.4 8.5 - 10.5 mg/dL Total Protein 7.2 6.1 - 8.0 g/dL Albumin 4.2 3.2 - 5.2 g/dL AST 17 0 - 39 unit/L ALT 17 0 - 55 unit/L Alk Phos 407 (H) 40 - 130 unit/L Total Bilirubin 0.2 0.2 - 1.3 mg/dL Estimated GFR 69 >=60 mL/min/1.73 m?? PSA (Ultrasensitive) Result Value Ref Range PSA Total (Ultrasensitive) 18.80 (H) 0.00 - 4.00 ng/mL Hemogram Result Value Ref Range WBC 5.3 4.0 - 9.5 x10(3)/mcL RBC 4.85 4.58 - 5.54 x10(6)/mcL Hemoglobin 14.8 13.7 - 16.5 g/dL Hematocrit 44.9 40.5 - 48.5 % MCV 92.6 82.9 - 93.1 fL MCH 30.5 27.5 - 32.1 pg MCHC 33.0 32.0 - 35.7 g/dL Platelets 161 145 - 357 x10(3)/mcL RDWSD 47.9 (H) 36.0 - 45.0 fL RDWCV 14.0 (H) 11.4 - 13.8 % MPV 9.8 7.6 - 12.9 fL nRBC % Auto 0.0 % nRBC Abs Auto 0.000 0.000 - 0.000 x10(3)/mcL Differential, Automated Result Value Ref Range Neutrophils % 48.6 % Neutr Abs (ANC) 2.59 1.70 - 6.10 x10(3)/mcL Lymphocytes % 36.2 % Lymphocytes Abs 1.9 0.9 - 3.2 x10(3)/mcL Monocytes % 10.1 % Monocyte Abs 0.5 0.3 - 0.9 x10(3)/mcL Eosinophils % 3.0 % Eosinophils Abs 0.2 0.0 - 0.4 x10(3)/mcL Basophils % 1.9 % Basophils Abs 0.1 0.0 - 0.1 x10(3)/mcL Immature Gran % 0.20 % Patti Gran Abs 0.01 0.00 - 0.04 x10(3)/mcL Imagin06/04/23 CT abdomen and pelvis: Impression: Enlarged [...] Food and Drug Administration approved darolutamide (Nubeqa, Feed.fm.) tablets in combination with docetaxel for adult patients with metastatic hormone-sensitive prostate cancer (mHSPC). Efficacy was based on ARASENS ([id number]), a randomized, multicenter, double- blind, placebo-controlled clinical trial in 1306 patients with mHSPC. Patients were randomized to receive either darolutamide 600 mg orally twice daily plus docetaxel 75 mg/m2 intravenously administered every 3 weeks forup to 6 cycles or docetaxel plus placebo. All patients received a gonadotropin-releasing hormone analog concurrently or had a bilateral orchiectomy. The primary efficacy measure was overall survival (OS). Uvyc-hj-jiwi progression was an additional efficacy measure. Median OS was not reached (NR) (95% CI: NR, NR) in the darolutamide plus docetaxelarm and 48.9 months (95% CI: 44.4, NR) in docetaxel plus placebo arm (HR 0.68; 95% CI: 0.57, 0.80; p<0.0001). Treatment with darolutamide and docetaxel resulted in a statistically significant delay in rkdv-ft-bgmu progression (HR 0.79; 95% CI: 0.66, 0.95; [...] -12 July [address] Contreras Plan: Continue Lupron next due 08/03/23 Start darolutamide 600 mg twice daily as soon as available CT chest prior next visit Next visit in 3-4 weeks with CBC, CMP, PSA, testosterone, chemotherapy teaching by VEGETABLE CUTTER and first cycle of docetaxel with Becky The plan was discussed with the patient and his . All questions were answered to patient's satisfaction. I would like to thank Dr. Phelps and Dr. Finley for allowing me to participate in the care ofthis wonderful gentleman documented in this encounter Plan of Treatment Upcoming Encounters Date Type Department Care Team (Late st Contact Info) Description 08/01/2024 1:00 PM EDT Office Visit Hematology/Oncology at [address] [phone] Dmitry Steven MD [facility] DR HEMATOLOGY/[place] [address] Ellen Mcrae APRN [facility] [place] [address] 08/01/2024 1:30 PM EDT Infusion Hematology Oncology at [address] [phone] Scheduled Orders Name Type Priority Associated Diagnoses Orde r Schedule PSA (Ultrasensitive) Lab Routine Malignant neoplasm of prostate metastatic to bone As Needed for 10 Occurrences starting 07/08/2023 until 07/08/2024 CBC (with Diff) Lab Routine Malignant neoplasm of prostate metastatic to bone As Needed for 10 Occurrences starting 07/08/2023 until 07/08/2024 Comprehensive metabolic panel (non-fasting) Lab Routine Malignant neoplasm of prostate metastatic to bone As Needed for 10 Occurrences starting 07/08/2023 until 07/08/2024 Testosterone, total Lab Routine Malignant neoplasm of prostate metastatic to bone As Needed for 10 Occurrences starting 07/08/2023 until 07/07/2024 documented as of this encounter Results * (ABNORMAL) Testosterone, total (07/08/2023 2:07 PM EDT) [facility] Total <0.12(L) 1.93 - 7.40 ng/mL [facility] Comment: Pediatric Reference Ranges: ? Males (7 - 18 years) ?Females (8 - 18 years) Bear Stage ?ng/ml ? ng/ml ? 1 ? <0.03 ? <0.03 to 0.06 ? 2 ? <0.03 to 4.32 ? <0.03 to 0.10 ? 3 ?0.65 to 7.78 ? <0.03 to 0.24 ? 4 ?1.80 to 7.63 ? <0.03 to 0.27 ? 5 ?1.88 to 8.82 ?0.05 to 0.38 Stated reference ranges derived from review of [employer] Arabella Testosterone II 09/2022, v2.0 Blood 07/08/2023 2:07 PM EDT 07/08/2023 2:10 PM EDT Narrative Resulting Agency Comment Spec In Lab Dmitry Steven MD CHEMISTRY ORDERABLES [facility] [place] [address] * (ABNORMAL) Comprehensive metabolic panel (non-fasting) (07/08/2023 2:07 PM EDT) Glucose Lvl 73 65 - 199 mg/dL [facility] Comment:Diabetes: >=200 mg/d L plus symptoms BUN 16 10 - 20 mg/dL [facility] Creatinine 1.12 0.80 - 1.50 mg/dL [facility] Sodium 143 135 - 145 mmol/L [facility] Potassium 4.4 3.5 - 5.0 mmol/L [facility] Comment: Please note: ??Patients with WBC >100,000 may have falsely elevated Potassium levels. ??For accurate Potassium quantification in these patients send serum separator tube (gold top) for subsequent determinations. ??Contact the Clinical Chemistry Laboratory if there are any questions. Chloride 109(H) 98 - 107 mmol/L [facility] CO2 24 22 - 31 mmol/L [facility] Anion Gap 10 5 - 15 mmol/L [facility] Calcium 9.4 8.5 - 10.5 mg/dL [facility] Total Protein 7.2 6.1 - 8.0 g/dL [facility] Albumin 4.2 3.2 - 5.2 g/dL [facility] AST 17 0 - 39 unit/L [facility] ALT 17 0 - 55 unit/L [facility] Alk Phos 407(H) 40 - 130 unit/L [facility] Total Bilirubin 0.2 0.2 - 1.3 mg/dL [facility] Estimated GFR 69 >=60 mL/min/1. 73 m?? [facility] Comment: This patient's estimated GFR was [...] Resulting Agency Comment Spec In Lab Dmitry Steven MD CHEMISTRY ORDERABLES [facility] [place] [address] * (ABNORMAL) PSA (Ultrasensitive) (07/08/2023 2:07 PM EDT) PSA Total (Ultrasensitive) 18.80(H) 0.00 - 4.00 ng/mL [facility] Comment: PLEASE NOTE: The above reference interval is intended for healthy males with an intact prostate. Values within this reference interval may indicate recurrence in men who have undergone radical prostatectomy. This result was generated using a Kennedy Arabella immunoassay. ??Results obtained from other methods or manufacturers cannot be used interchangeably with this method. Blood 07/08/2023 2:07 PM EDT 07/08/2023 2:10 PM EDT Narrative Resulting Agency Comment Spec In Lab Dmitry Steven MD CHEMISTRY ORDERABLES [facility] [place] [address] documented in this encounter Visit Diagnoses Diagnosis Malignant neoplasm of prostate metastatic to bone- Primary Malignant neoplasm of prostate Androgen deprivation therapy Encounter for therapeutic drug monitoring documented in this encounter Care Teams Pathologist Relationship Specialty Start Date End Date Paulino Finley MD [address] [place] [id number] PCP - General Emergency Medicine 09/11/21 documented as of this encounter
--- OUTSIDE RECORDS SUMMARY | 2024-05-18 11:27 | XMS_ITS | Encounter Summary ---
[place] [address] Care Team Providers Care Silver Designer Name Role Phone Jovon Sifuentes MD Primary Care Provider Reason for Visit * Audiology Exam (Routine) - Denied Specialty Diagnoses / Procedures Referred By Huma valladares Referred To Contact Audiology Diagnoses needs HAF and in trial check with next available provider (AP out on leave) Procedures HEARING AID FITTING Jovon Sifuentes MD [address] [place] [address] Valerie Toscano [facility] [address] Referral ID Status Reason Start Date Expiration Date Visits Re quested Visits Authorized [id number] Denied 09/11/2019 09/10/2020 1 0 Encounter Details Date Type Department Care Team (Latest Contact Info) Description 09/11/2019 8:45 AM EST Office Visit Audiology at [address] [phone] Valerie Toscano [facility] [address] Sensorineural hearing loss, asymmetrical; Fitting and adjustment of hearing aid Social History Tobacco Use Types Packs/Day Years [...] as of this encounter Progress Notes * DorcasValerie burger, - 09/11/2019 8:45 AM EST 09/11/2019 AUDIOLOGY - Hearing Aid Fitting Binaural hearing aids were dispensed today to Jose Bee for management of his asymmetric sensorineural hearing loss. Verification of hearing aid fit was completed via ngju-xee-oqbtnegs (REM) using the Desired Sensation Level 5 (DSL 5a) prescriptive fitting method. The aided response approximated targets for speech. Loudness discomfort was denied at maximum power output levels. SREM and d-jossue measures were also completed for future comparison purposes. Mr. Bee reported good initial physical comfort and sound quality. He was instructed on the aids' use, care, maintenance, warranty coverage, and 30-day trial period. A review of expectations andthe hearing aid adjustment process was also discussed. He was able to insert and manipulate the instruments with relative ease. Mr. Bee will be seen for a follow-up hearing aid check and orientation within the 30-day trial. Sabina Aundrealaverne Toscano, MS, [facility] Clinical Coordinator, Adult Audiology Program [place] [phone] (fax) AMPLIFICATION EQUIPMENT LIST: HEARING AID RIGHT LEFT Make/Model/Style Phonak Audeo M30 R Phonak Audeo M30 R Casing Color White White Serial Number [id number] Battery Size Rechargeable Rechargeable Invoice number/date [id number] 08/24/19 [id number] 08/24/19 Other Comments PROGRAM/SETTINGS Fitting Algorithm DSL Adult DSL Adult Verification Method REM, SREM, and d-jossue REM, SREM, and d-jossue SII (w/65 dBSLP) unaided/aided 55 // 69 40 // 52 Programs AutoSense Mute AutoSense Mute Other Comments >active features: VC >disabled features: PB for program change Bluetooth Ear: Right Fixed Bandwidth VC AYOUB WARRANTY Original Fit Date 09/11/2019 09/11/2019 Current Status 11/21/21 11/21/21 EARMOLD (if BTE AYOUB) Lab Earmold / Slim tube / HELENA / Dome specifics Size 03 M wood science professor small vented dome Size 03 M wood science professor small vented dome Impression Date Invoice number/date Other Comments ACCESSORIES Make/Model (color) Serial Number Warranty date Invoice number/date Settings Other Comments documented in this encounter Plan of Treatment Upcoming Encounters Date Type Department Care Team (Late st Contact Info) Description 08/01/2024 1:00 PM EDT Office Visit Hematology/Oncology at [address] [phone] Dmitry Bhatti MD [facility] DR HEMATOLOGY/[place] [address] Ellen Mcrae APRN [facility] [place] [address] 08/01/2024 1:30 PM EDT Infusion Hematology Oncology at [address] [phone] documented as of this encounter Visit Diagnoses Diagnosis Sensorineural hearing loss, asymmetrical Fitting and adjustment of hearing aid documented in this encounter Care Teams Silver Designer Relationship Specialty Start Date End Date Jovon Sifuentes MD [address] [place] [address] PCP - General 09/30/10 09/10/21 documented as of this encounter
--- OUTSIDE RECORDS SUMMARY | 2024-05-18 11:27 | XMS_ITS | Encounter Summary ---
Author Organization [facility] Address [facility] [place] [address] Care Team Providers Care Instrument Assembler Name Role Phone Jovon Sifuentes MD Primary Care Provider [phone] Encounter Details Date Type Department Care Team (Late st Contact Info) Description 12/05/2020 11:30 AM EST Office Visit [place] [address] Sriram Contreras MD [facility] [place] [address] Cancer of base of tongue Social History [...] - Inhaled Oxygen Concentration - - Weight 141.1 kg (311 lb) 12/05/2020 11:19 AM EST with boots on Height 191.8 cm (6' 3.5) 12/05/2020 11:19 AM ES T Body Mass Index 38.36 12/05/2020 11:19 AM EST documented in this encounter Progress Notes * Sriram Cotnreras MD - 12/05/2020 11:30 AM EST . [facility] [place] OTOLARYNGOLOGY HEAD AND NECK TUMOR CLINIC FOLLOW UP NOTE Jose Bee is a 69 y.o. 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 He also had rotator cuff repair recently. No issues with swallowing and eating. He did note a small minor salivary gland left lower lip. Seems that it has been getting smaller. PROBLEM LIST Patient Active Problem List Diagnosis Code ??? Carcinoma of base of tongue C01 ??? Pulmonary embolism I26.99 ??? Benign prostatic hyperplasia N40.0 ??? Atrial fibrillation I48.91 ??? KORI on CPAP G47.33, Z99.89 ??? Adult BMI 30+ [id number] PAST MEDICAL HISTORY Past Medical History: Diagnosis Date ??? Arthritis ??? Atrial fibrillation ??? BPH (benign prostatic hyperplasia) ??? Cataract, right eye ??? ED (erectile dysfunction) ??? Hypothyroidism ??? Pulmonary embolism SOCIAL HISTORY Social History Tobacco Use ??? Smoking status: Former Smoker Packs/day: 1.00 Years: 27.00 Pack years: 27.00 Types: Cigarettes, Pipe Start date: 1968 Quit date: 1995 Years since quittin.0 ??? Smokeless tobacco: Never Used ??? Tobacco comment: quit cigarettes in 1995 - but smoked occasional pipe Substance Use Topics ??? Alcohol use: Yes Comment: 1-2 drinks a week - liquor MEDICATIONS Current Outpatient Medications on File Prior to Visit Medication Sig Dispense Refill ??? tadalafiL (CIALIS) 10 mg Tablet TAKE 1 TABLET BY MOUTH AT LEAST 1 HOUR PRIOR TO ANTICIPATING INTERCOURSE NEEDED ??? melatonin 5 mg Tablet Take 10 mg by mouth nightly. ??? glucosamine/chondr mclaughlin A sod (OSTEO BI-FLEX ORAL) Take by mouth 2 times daily. ??? ELIQUIS 5 mg Tablet 2 times daily. 0 ??? acetaminophen (TYLENOL) 325 mg Tablet Take 2 tablets by mouth every 4 hours. (Patient taking differently: Take 650 mg by mouth as needed.) 30 tablet 1 ??? tamsulosin (FLOMAX) 0.4 mg Capsule, Sust. Release 24 hr Take 0.4 mg by mouth daily. No current facility-administered medications on file prior to visit. ALLERGIES Allergies Allergen Reactions ??? Ibuprofen CIS - Nausea/Vomiting ??? Clindamycin Other (See Comments) Memory issues. ROS Pertinent positive findings discussed above. No other findings on review of constitutional visual, cardiovascular, respiratory, gastrointestinal, genitourinary, musculoskeletal, dermatologic, neurological, psychiatric, endocrine, hematologic or immunologic systems. PHYSICAL EXAMINATION Wt Readings from Last 3 Encounters: 12/05/20 (!) 141.1 kg (311 lb) 06/06/20 127 kg (280 lb) 11/09/19 131.1 kg (289 lb) General: Well developed, no distress Head/face: Normocephalic, atraumatic Oral cavity: Small mobile minor salivary gland left lower lip. Non tender. Oropharynx: Normal soft palate, tonsils, lateral pharyngeal wall, posterior pharynx. Neck: Status post right neck dissection. No adenopathy, no masses, normal thyroid, normal salivary gland exam. Trachea midline. Post neck dissection, right side. Resp: Normal speech, no stridor, normal respirations. Skin: Normal skin survey of the head and neck. MSK: No trismus, normal neck range of motion Neuro: AxOx3; CN II-XII is grossly intact Psych: Normal mood and affect. Responds appropriately to questions. PROCEDURES Procedure Flexible Fiberoptic Laryngoscopy Indication Oropharynx cancer Description Informed verbal consent obtained and time out performed. A flexible laryngoscope was used to evaluate bilateral nasal cavity, nasopharynx, oropharynx, hypopharynx and larynx. The examination was recorded on the TelePack Unit and uploaded to the [employer] Operator. Findings Nasal cavity Right nasal cavity examination is normal. Nasopharynx normal Oropharynx Tongue base well healed - no recurrence or changes when compared with prior going back to 2017. Some fullness posterior pharynx. This appears unchanged from priors. Larynx S/p epiglottectomy with good reconstruction of edith-epiglottis. Normal vocal cords. Hypopharynx normal REVIEW OF IMAGES None ASSESSMENT/RECOMMENDATIONS MAGY Follow up in 6 months I appreciate the opportunity to be involved in Mr. Bee's care. SRIRAM CONTRERAS MD 12/05/2020 documented in this encounter Plan of Treatment Upcoming Encounters Date Type Department Care Team (Late st Contact Info) Description 08/01/2024 1:00 PM EDT Office Visit Hematology/Oncology at [address] [phone] Dmitry Bhatti MD [facility] DR HEMATOLOGY/[place] [address] Ellen Mcrae APRN [facility] [place] [place] [address] 08/01/2024 1:30 PM EDT Infusion Hematology Oncology at [address] [phone] documented as of this encounter Visit Diagnoses Diagnosis 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 documented in this encounter Care Teams Instrument Assembler Relationship Specialty Start Date End Date Jovon Sifuentes MD [address] [place] [address] PCP - General 09/30/10 09/10/21 documented as of this encounter
--- OUTSIDE RECORDS SUMMARY | 2024-05-18 11:27 | XMS_ITS | Encounter Summary ---
[place] [address] Care Team Providers Care Research Animal Facility Supervisor Name Role Phone Jovon Sifuentes MD Primary Care Provider [phone] Encounter Details Date Type Department Care Team (Latest Contact Info) Description 06/12/2021 8:00 AM EDT Office Visit Audiology at [address] [phone] [facility] [place] [address] Sensorineural hearing loss, asymmetrical Social History Tobacco Use Types Packs/Day Years [...] as of this encounter Progress Notes * Valerie Toscano, DAVID - 06/12/2021 8:00 AM EDT 06/12/2021 - Audiology Jose Bee was seen today for a hearing aid check-up for maintenance purposes. His hearingaids are used for management of his asymmetric sensorineural hearing loss. He was under the impression that his warranty was expiring in September, rather than in November 2021 as it really is and wished to make certain that they were still in good working order. Krala Byrnes, Audiology Doctoral Fish And Wildlife Biologist assisted during today's visit under my full supervision. Summary of Visit: ?? Both instruments were checked and cleaned, Wax traps and domes were replaced. A listening check following these measures noted the instruments to be functional. ?? Spare wax traps and domes were dispensed. ?? The care and maintenance of the aids was briefly reviewed. ?? Mr. Bee came in and left today not wearing the aids. He commented that he was going to be involved in hazardous noise situations after leaving and appropriately does not use the aids under those conditions. He was reminded however, that when placing the aids into his unplugged charging case, that he should manually turn off the aids, as they will otherwise remain on, needlessly using thebattery and likely feedback in the case. ?? An audiologic evaluation and hearing aid check-up are again advised as previously planned for October 2021/ November 2021. He knows to contact the clinic sooner for any interim concerns. Sabina Toscano MS, [facility] Clinical Coordinator, Adult Audiology Program [place] [phone] (fax) AMPLIFICATION EQUIPMENT LIST: HEARING AID RIGHT LEFT Make/Model/Style Phonak Audeo M30 R Phonak Audeo M30 R Casing Color White White Serial Number [id number] Battery Size Rechargeable Rechargeable Invoice number/date [id number] 08/24/19 [id number] 08/24/19 Other Comments PROGRAM/SETTINGS Fitting Algorithm DSL [...] HELENA / Dome specifics Size 03 M hospitality coordinator small vented dome Size 03 M hospitality coordinator small vented dome Impression Date Invoice number/date Other Comments ACCESSORIES Make/Model (color) Serial Number Warranty date Invoice number/date Settings Other Comments documented in this encounter Plan of Treatment Upcoming Encounters Date Type Department Care Team (Late st Contact Info) Description 08/01/2024 1:00 PM EDT Office Visit Hematology/Oncology at [address] [phone] [facility] DR HEMATOLOGY/[place] [address] [facility] [place] [address] 08/01/2024 1:30 PM EDT Infusion Hematology Oncology at [address] [phone] documented as of this encounter Visit Diagnoses Diagnosis Sensorineural hearing loss, asymmetrical documented in this encounter Care Teams Research Animal Facility Supervisor Relationship Specialty Start Date End Date Jovon Sifuentes MD [address] [place] [address] PCP - General 09/30/10 09/10/21 documented as of this encounter
--- OUTSIDE RECORDS SUMMARY | 2024-05-18 11:27 | XMS_ITS | Encounter Summary ---
Author Organization [facility] [place] [address] Care Team Providers Care Fur Pointer Name Role Phone Jovon Sifuentes MD Primary Care Provider Encounter Details Date Type Department Care Team ([facility] Contact Info) Description 08/18/2019 Orders [place] [phone] Angy Noriega Social History Tobacco Use Types [...] 1:00 PM EDT Office Visit Hematology/Oncology at [address] [phone] Dmitry Bhatti MD [facility] DR HEMATOLOGY/[place] [address] Ellen Mcrae APRN [facility] [place] [address] 08/01/2024 1:30 PM EDT Infusion Hematology Oncology at [address] [phone] documented as of this encounter Visit Diagnoses Not on filedocumented in this encounter Care Teams Fur Pointer Relationship Specialty Start Date End Date Jovon Sifuentes MD [address] [place] [address] PCP - General 09/30/10 09/10/21 documented as of this encounter
--- OUTSIDE RECORDS SUMMARY | 2024-05-18 11:27 | XMS_ITS | Encounter Summary ---
[place] [address] Care Team Providers Care Construction Helper Name Role Phone Jovon Sifuentes MD Primary Care Provider [phone] Encounter Details Date Type Department Care Team (Late Contact Info) Description 08/18/2019 Telephone [place] [phone] Angy Noriega Social History Tobacco Use Types [...] * Telephone Encounter - Angy Shelby - 08/18/2019 1:46 PM EDT Lmx2 for patient to call back and schedule a follow up appointment with JYOTHI documented in this encounter Plan of Treatment Upcoming Encounters Date Type Department Care Team (Late st Contact Info) Description 08/01/2024 1:00 PM EDT Office Visit Hematology/Oncology at [address] [phone] Dmitry Bhatti MD [facility] DR HEMATOLOGY/[place] [address] Ellen Mcrae APRN [facility] [place] [address] 08/01/2024 1:30 PM EDT Infusion Hematology Oncology at [address] [phone] documented as of this encounter Visit Diagnoses Not on filedocumented in this encounter Care Teams Construction Helper Relationship Specialty Start Date End Date Jovon Sifuentes MD [address] [place] [address] PCP - General 09/30/10 09/10/21 documented as of this encounter
--- OUTSIDE RECORDS SUMMARY | 2024-05-18 11:27 | XMS_ITS | Encounter Summary ---
[place] [address] Care Team Providers Care Steam Table Associate Name Role Phone Jovon Sifuentes MD Primary Care Provider Encounter Details Date Type Department Care Team (Latest Contact Info) Description 04/15/2020 1:45 PM EDT Clinical Support Audiology at [address] [phone] Estela Edmond AUD [facility] [address] Sensorineural hearing loss, asymmetrical Social History Tobacco [...] as of this encounter Progress Notes * Estela Edmond, DAVID - 04/15/2020 1:45 PM EDT AUDIOLOGY SECTION AMPLIFICATION REPAIR NOTE REPAIR WORK HEARING AID (right, left or both) Left SERIAL NUMBER CHANGED? No WARRANTY CHANGED? No REPAIR WORK PERFORMED? 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 No S-REM VERIFICATION PERFORMED? Yes RE-PROGRAMMED? (ELINOR session date) N/A PROGRAMS AND V/C STATUS CHANGED? N/A PHYSICAL AND ACOUSTIC INSPECTION PERFORMED? N/A DELIVERY (patient pick-up, patient seen, aid mailed or handed off) Mailed to pt w/ pt's case [facility] LOANER OUT? OTHER AMPLIFICATION EQUIPMENT LIST: HEARING AID RIGHT LEFT Make/Model/Style Phonak Audeo M30 R Phonak Audeo M30 R Casing Color White White Serial Number [id number] Battery Size Rechargeable Rechargeable Invoice number/date [id number] 08/24/19 [id number] 08/24/19 Other Comments PROGRAM/SETTINGS Fitting Algorithm DSL [...] HELENA / Dome specifics Size 03 M acrobatic dancer small vented dome Size 03 M acrobatic dancer small vented dome Impression Date Invoice number/date Other Comments ACCESSORIES Make/Model (color) Serial Number Warranty date Invoice number/date Settings Other Comments documented in this encounter Plan of Treatment Upcoming Encounters Date Type Department Care Team (Late st Contact Info) Description 08/01/2024 1:00 PM EDT Office Visit Hematology/Oncology at [address] [phone] Dmitry Bhatti MD [facility] HEMATOLOGY/[place] [address] Ellen Mcrae APRN [facility] [place] [address] 08/01/2024 1:30 PM EDT Infusion Hematology Oncology at [address] [phone] documented as of this encounter Visit Diagnoses Diagnosis Sensorineural hearing loss, asymmetrical documented in this encounter Care Teams Steam Table Associate Relationship Specialty Start Date End Date Jovon Sifuentes MD [address] [place] [address] PCP - General 09/30/10 09/10/21 documented as of this encounter
--- OUTSIDE RECORDS SUMMARY | 2024-05-18 11:27 | XMS_ITS | Encounter Summary ---
[place] [address] Care Team Providers Care Banana Handler Name Role Phone Jovon Sifuentes MD Primary Care Provider Encounter Details Date Type Department Care Team (Latest Contact Info) Description 04/04/2020 10:15 AM EDT Clinical Support Audiology at [address] [phone] Estela Edmond AUD [facility] [place] [address] Sensorineural hearing loss, asymmetrical Social History Tobacco [...] Progress Notes * Estela Edmond, DAVID - 04/04/2020 10:15 AM EDT HEARING AID CHECK Patient's left hearing aid mailed to clinic (repair reason: hearing aid squeaked frequently when being used for about a week. The green light does not go out after charging and it doesn't seem to work at all.) Actions taken: ?? Hearing aid initially appeared fully charged when placed in charging unit, however the device did not power on when removing from the shear setter. When placed back in the shear setter, light was blinking red. ?? In-house repair attempted unsuccessfully. Sending hearing instrument to in- warranty manufacturerrepair. ?? Attempted to contact Mr. Bee via home and mobile number, however a voicemail message couldnot be left. ?? Mail to patient upon return from repair. Case on HIS shelf. PLAN: Patient to return for routine audiologic care as recommended by managing job recruiter. Contactthis Section in the interim for any concerns related to changes in hearing or aided benefit. David Avery Clinical Friction Welding Machine Operator [place] [phone] AMPLIFICATION EQUIPMENT LIST: HEARING AID RIGHT LEFT Make/Model/Style Phonak Audeo M30 R Phonak Audeo M30 R Casing Color White White Serial Number [id number] Battery Size Rechargeable Rechargeable Invoice number/date [id number] 08/24/19 [id number] 08/24/19 Other Comments PROGRAM/SETTINGS Fitting Algorithm DSL [...] HELENA / Dome specifics Size 03 M mobile equipment operator small vented dome Size 03 M mobile equipment operator small vented dome Impression Date Invoice number/date Other Comments ACCESSORIES Make/Model (color) Serial Number Warranty date Invoice number/date Settings Other Comments documented in this encounter Plan of Treatment Upcoming Encounters Date Type Department Care Team (Late st Contact Info) Description 08/01/2024 1:00 PM EDT Office Visit Hematology/Oncology at [address] [phone] Dmitry Bhatti MD [facility] DR HEMATOLOGY/[place] [address] Ellen Mcrae APRN [facility] [place] [address] 08/01/2024 1:30 PM EDT Infusion Hematology Oncology at [address] [phone] documented as of this encounter Visit Diagnoses Diagnosis Sensorineural hearing loss, asymmetrical documented in this encounter Care Teams Banana Handler Relationship Specialty Start Date End Date Jovon Sifuentes MD [address] [place] [address] PCP - General 09/30/10 09/10/21 documented as of this encounter
--- OUTSIDE RECORDS SUMMARY | 2024-05-18 11:27 | XMS_ITS | Encounter Summary ---
[place] [address] Care Team Providers Care Road Test Examiner Name Role Phone Paulino Finley MD Primary Care Provider [phone] Reason for Visit * Reason Comments Chemotherapy Cycle 1, Day 1; Doce taxel * Treatment/Therapy Plan Authorization (Routine) - Authorized Specialty Diagnoses / Procedures Referred By Contac t Referred To Contact Hematology and Oncology Diagnoses Prostate cancer metastatic to multiple sites Procedures TC LEUPROLIDE ACETATE 7.5MG, FOR DEPOST SUSPENSION (LUPRON DEPOT) [id number] LUPRON DEPOT Dmitry Bhatti MD [address] [place] [id number] Dmitry Bhatti MD [address] [place] [id number] Referral ID Status Reason Start Date Expiration Date V isits Requested Visits Authorized [id number] Authorized 07/08/2023 07/07/2024 99 101 Encounter Details Date Type Department Care Team (Late st Contact Info) Description 08/10/2023 10:00 AM EDT Infusion Hematology Oncology at [address] [phone] Prostate cancer metastatic to multiple sites; Malignant neoplasm of prostate metastatic to bone Social History Tobacco Use Types Packs/Day Years Used Date Smoking Tobacco: Former Cigarettes 1 1 969 - 1995 Pipe Smokeless Tobacco: [...] Progress Notes * Debo Antunez RN - 08/10/2023 10:00 AM EDT INFUSION THERAPY ADMINISTRATION NOTES DIAGNOSIS: Prostate CYCLE #:1, Day 1 REASON FOR VISIT: chemo- Docetaxol, Onpro and Lupron SUBJECTIVE Jose Bee offers no complaints. OBJECTIVE LAB DATA: WDL for today's infusion- from 07/29. Seen in clinic and cleared for treatment IV ACCESS: PIV placed and removed after treatment Pre administration: Chemotherapy orders independently verified for drug name, route, and dosage per patient's height, weight and BSA by Debo Antunez RN & onsite pharmasist REACTIONS (DESCRIPTION, TIME, INTERVENTION AND EFFECTIVENESS) none ASSESSMENT Jose Bee was awake, alert and tolerated treatment well. OnPro applied to right arm at 1330. Due to start deploying dose of medication at 1630 on 08/11. Patient instructed to remove at 08/11 1730 when meter reads empty and light is solid green. Verbal and written instruction given to patient. Pt. chemo teaching instructions included: During clinic hours (8am-5pm Wednesday-Wednesday): pt. can call [phone] with questions or concerns. After clinic hours (5pm-8am Wednesday-Wednesday and weekends) pt can call [phone] and ask for the muff winder/oncologist information engineer. Jose Bee verbalized understanding of potential chemotherapy side effects and home care including but not limited to- handwashing to prevent infection, signs and symptoms of low blood counts (fever, fatigue, bleeding), to call with a fever of 100.4 or greater, any significant constipation/diarrhea, importance of nutrition and fluid intake (drinking at least 32-64 ounces of non-caffeinated beverages/day), mouth care. Jose Bee verbalized understanding of how to take prescription medications given for homeuse after chemotherapy. PLAN Return to clinic per routine. documented in this encounter Plan of Treatment Upcoming Encounters Date Type Department Care Team (Late st Contact Info) Description 08/01/2024 1:00 PM EDT Office Visit Hematology/Oncology at [address] [phone] Dmitry Bhatti MD [facility] HEMATOLOGY/[place] [address] Ellen Mcrae APRN [facility] [place] [address] 08/01/2024 1:30 PM EDT Infusion Hematology Oncology at [address] [phone] documented as of this encounter Visit Diagnoses [...] 10 mg, Intravenous, ONCE, 1 dose, On Wed08/10/23 at 1030, Administer 60 minutes prior to DOCEtaxel Given 08/10/2023 10:39 AM EDT 10 mg diphenhydrAMINE (Benadryl) (50 mg/mL) injection 25 mg 25 mg, Intravenous, ONCE, 1 dose, On Wed08/10/23 at 1030, Administer 60 minutes prior to DOCEtaxel, Routine Given 08/10/2023 10:39 AM EDT 25 mg DOCEtaxeL (Taxotere) 180 mg in sodium chloride 0.9% Non-PVC 259 mL infusion 180 mg, Intravenous, ONCE, 1 dose, On Wed08/10/23 at 1130, Administer over 60 Minutes, Dose Ordered = 198 mg (75 mg/m2). Pharmacist rounded dose per procedure. Warning Vesicant/Irritant Medication 3 Step Titration for Infusions 1 and 2. Regular (Not Titrated) Rate to start at infusion 3 if no HSR. Step 1: Start at a rate of 2.6 mL/hr for 15 minutes. Step 2: Increase rate to 26 mL/hr for 15 minutes. Step 3: Increase to regular infusion rate 259.9 mL/hr for remainder of infusion. NOTE TO PHARMACY: Change prep instructions to Line Primed with Drug + Auxiliary Label New Bag 08/10/2023 11:48 AM EDT 180 mg 259 mL/hr famotidine (Pepcid) (10 mg/mL) injection 20 mg 20 mg, Intravenous, ONCE, 1 dose, On Wed08/10/23 at 1030, Administer 60 minutes prior to DOCEtaxel Given 08/10/2023 10:38 AM EDT 20 mg leuprolide (Lupron Depot) injection 22.5 mg 22.5 mg, Intramuscular, ONCE, 1 dose, On Wed08/10/23 at 1215, , Routine, This agent is restricted to outpatient use. Is this drug being given as an outpatient? Yes Given 08/10/2023 1:24 PM EDT 22.5 mg Left Gluteal pegfilgrastim (Neulasta Onpro) (6 mg/0.6 mL) injection kit 6 mg 6 mg, Subcutaneous, ONCE, 1 dose, On Wed08/10/23 at 1030, Allow the prefilled syringe co-packaged with the on-body injector to reach room temperature at least 30 minutes prior to administration., Routine, This agent is restricted to outpatient use. Is this drug being given as an outpatient? Yes Given 08/10/2023 1:26 PM EDT 6 mg Right Arm sodium chloride 0.9% infusion 100 mL/hr, Intravenous, CONTINUOUS, Starting on Wed08/10/23 at 1030, Until Wed08/10/23 at 1718 New Bag 08/10/2023 10:48 AM EDT 100 mL/hr 100 mL/hr documented in this encounter Care Teams Road Test Examiner Relationship Specialty Start Date End Date Paulino Finley MD [address] [place] [address] PCP - General Emergency Medicine 09/11/21 documented as of this encounter
--- OUTSIDE RECORDS SUMMARY | 2024-05-18 11:27 | XMS_ITS | Encounter Summary ---
[place] [address] Care Team Providers Care Cancer Genetic Counselor Name Role Phone Paulino Finley MD Primary Care Provider [phone] Encounter Details Date Type Department Care Team (Late Contact Info) Description 07/29/2023 [place] [phone] Casi Dong Social History Tobacco Use Types [...] encounter Progress Notes * Casi Dong - 07/29/2023 10:38 AM EDT I faxed the application for assistance with Nubeqa to [employer]. I will follow through once the paper hanger program makes a decision. documented in this encounter Plan of Treatment Upcoming Encounters Date Type Department Care Team (Late st Contact Info) Description 08/01/2024 1:00 PM EDT Office Visit Hematology/Oncology at [address] [phone] Dmitry Bhatti MD [facility] DR HEMATOLOGY/[place] [address] Ellen Mcrae APRN [facility] [place] [address] 08/01/2024 1:30 PM EDT Infusion Hematology Oncology at [address] [phone] documented as of this encounter Visit Diagnoses Not on filedocumented in this encounter Care Teams Cancer Genetic Counselor Relationship Specialty Start Date End Date Paulino Finley MD [address] [place] [address] PCP - General Emergency Medicine 09/11/21 documented as of this encounter
--- OUTSIDE RECORDS SUMMARY | 2024-05-18 11:27 | XMS_ITS | Encounter Summary ---
Author Organization [facility] [place] [address] Care Team Providers Care Marketing Strategy Analyst Name Role Phone Jovon Sifuentes MD Primary Care Provider [phone] Reason for Visit * Reason Comments Follow-up i had throat cancer and I have to come in for a 3 month check up Encounter Details Date Type Department Care Team (Late st Contact Info) Description 12/08/2018 9:20 AM EST Office [place] [address] Sriram Contreras MD [facility] [address] Cancer of base of tongue; Allergic rhinitis, unspecified seasonality, unspecified trigger Social History Tobacco Use Types Packs/Day Years [...] - Inhaled Oxygen Concentration - - Weight 125.6 kg (277 lb) 12/08/2018 9:19 AM EST Height 190.5 cm (6' 3) 12/08/2018 9:19 AM EST Body Mass Index 34.62 12/08/2018 9:19 AM EST documented in this encounter Progress Notes * Sriram Contreras MD - 12/08/2018 9:20 AM EST . [facility] [place] AND NECK TUMOR CLINIC FOLLOW UP NOTE Jose Bee is a 67 y.o. 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 This is persistent. He had some PND symptoms prior to surgery but feels that it is worse since. He has tried anti- histamine with no improvement. Has been taking Mucinex with some improvement. As a separate issue he is also complaining of increased hearing loss. PROBLEM LIST Patient Active Problem List Diagnosis Code ??? Carcinoma of base of tongue C01 ??? Pulmonary embolism I26.99 ??? Benign prostatic hyperplasia N40.0 ??? Atrial fibrillation I48.91 ??? KORI on CPAP G47.33, Z99.89 ??? Adult BMI 30+ [id number] PAST MEDICAL HISTORY Past Medical History: Diagnosis Date ??? Arthritis ??? Atrial fibrillation ??? BPH (benign prostatic hyperplasia) ??? Cataract, right eye ??? ED (erectile dysfunction) ??? Hypothyroidism ??? Pulmonary embolism SOCIAL HISTORY Social History Tobacco Use ??? Smoking status: Former Smoker Packs/day: 1.00 Years: 27.00 Pack years: 27.00 Types: Cigarettes, Pipe Start date: 1969 Last attempt to quit: 1995 Years since quittin.0 ??? Smokeless tobacco: Never Used ??? Tobacco comment: quit cigarettes in 1995 - but smoked occasional pipe Substance Use Topics ??? Alcohol use: Yes Comment: 1-2 drinks a week - liquor MEDICATIONS Current Outpatient Medications on File Prior to Visit Medication Sig Dispense Refill ??? melatonin 5 mg Tablet Take 10 mg by mouth nightly. ??? guaiFENesin 600 mg Tablet Extended Release 12hr Take 1,200 mg by mouth 2 times daily. ??? glucosamine/chondr mclaughlin A sod (OSTEO BI-FLEX [...] EXAMINATION Wt Readings from Last 3 Encounters: 12/08/18 125.6 kg (277 lb) 08/08/18 130.5 kg (287 lb 11.2 oz) 04/14/18 124.7 kg (275 lb) General: Well developed, no distress Head/face: Normocephalic, atraumatic Ears: Bilateral exostosis, normal TM Oral cavity: Normal exam of the lips, teeth/gums, floor of mouth, tongue. Normal oral mucosa. Normal palate. Tongue protrudes normally. Oropharynx: Normal soft palate, tonsils, lateral pharyngeal [...] the TelePack Unit and uploaded to the [employer] F[employer]. Findings Nasal cavity Right nasal cavity examination is normal. Turbinate is hypertrophic Nasopharynx normal Oropharynx Tongue base well healed - no recurrence or changes when compared with prior Larynx S/p epiglottectomy with good reconstruction of edith-epiglottis. Normal vocal cords. Hypopharynx normal REVIEW OF IMAGES None ASSESSMENT/RECOMMENDATIONS MAGY Increase mucinex to 1-2 tabs q4 hours as needed (currently only taking 1 tab in the morning) Can add nasocort or flonase Audio with tymps next visit in 3 months I appreciate the opportunity to be involved in Mr. Bee's care. SRIRAM CONTRERAS MD 12/08/2018 documented in this encounter Plan of Treatment Upcoming Encounters Date Type Department Care Team (Late st Contact Info) Description 08/01/2024 1:00 PM EDT Office Visit Hematology/Oncology at [address] [phone] Dmitry Bhatti MD [facility] DR [place]ATOLOGY/[place] [address] Ellen Mcrae APRN [facility] [place] [address] 08/01/2024 1:30 PM EDT Infusion Hematology Oncology at [address] [phone] documented as of this encounter Visit Diagnoses Diagnosis 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 Allergic rhinitis, unspecified seasonality, unspecified trigger documented in this encounter Care Teams Marketing Strategy Analyst Relationship Specialty Start Date End Date Jovon Sifuentes MD [address] [place] [address] PCP - General 09/30/10 09/10/21 documented as of this encounter
--- OUTSIDE RECORDS SUMMARY | 2024-05-18 11:27 | XMS_ITS | Encounter Summary ---
[place] [address] Care Team Providers Care Gastrointestinal Technician Name Role Phone Paulino Finley MD Primary Care Provider [phone] Encounter Details Date Type Department Care Team (Late Contact Info) Description 08/09/2023 [place] [address] Casi Dong Social History Tobacco Use Types [...] encounter Progress Notes * Casi Dong - 08/09/2023 11:06 AM EDT Patient is now approved to receive his Nubeqa at no cost through [employer] until 08/06/2024. documented in this encounter Plan of Treatment Upcoming Encounters Date Type Department Care Team (Late Contact Info) Description 08/01/2024 1:00 PM EDT Office Visit Hematology/Oncology at [address] [phone] Dmitry Bhatti MD [facility] DR HEMATOLOGY/[place] [address] Ellen Mcrae APRN [facility] [place] [address] 08/01/2024 1:30 PM EDT Infusion Hematology Oncology at [address] [phone] documented as of this encounter Visit Diagnoses Not on filedocumented in this encounter Care Teams Gastrointestinal Technician Relationship Specialty Start Date End Date Paulino Finley MD [address] [place] [address] PCP - General Emergency Medicine 09/11/21 documented as of this encounter
--- OUTSIDE RECORDS SUMMARY | 2024-05-18 11:27 | XMS_ITS | Encounter Summary ---
Author Organization [facility] [place] [address] Care Team Providers Care Water Safety Teacher Name Role Phone Jovon Sifuentes MD Primary Care Provider [phone] Reason for Visit * Reason Comments Follow-up Encounter Details Date Type Department Care Team (Late st Contact Info) Description 03/02/2019 10:20 AM EDT Office Visit [place] [address] Sriram Contreras MD [facility] [place]ARY[place] [address] Cancer of base of tongue; Bilateral impacted cerumen; Sensorineural hearing loss (SNHL) of both ears Social History Tobacco Use Types Packs/Day Years [...] - Inhaled Oxygen Concentration - - Weight 124.3 kg (274 lb) 03/02/2019 9:56 AM EDT Height 190.5 cm (6' 3) 03/02/2019 9:56 AM EDT Body Mass Index 34.25 03/02/2019 9:56 AM EDT documented in this encounter Progress Notes * Sriram Contreras MD - 03/02/2019 10:20 AM EDT . [facility] OTOLARYNGOLOGY HEAD AND NECK TUMOR CLINIC FOLLOW UP NOTE Jose Bee is a 68 y.o. 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 Has high frequency SNHL left worse than right WRS 84% at 80 dB in the right ear. Would be a good candidate for amplification. He has not increased the mucinex. He does drink milk 3-4 times per day. No pain, adenopathy, voice change or other concerns. PROBLEM LIST Patient Active Problem List Diagnosis Code ??? Carcinoma of base of tongue C01 ??? Pulmonary embolism I26.99 ??? Benign prostatic hyperplasia N40.0 ??? Atrial fibrillation I48.91 ??? KORI on CPAP G47.33, Z99.89 ??? Adult BMI 30+ [id number] PAST MEDICAL HISTORY Past Medical History: Diagnosis Date ??? Arthritis ??? Atrial fibrillation ??? BPH (benign prostatic hyperplasia) ??? Cataract, right eye ??? ED (erectile dysfunction) ??? Hypothyroidism ??? Pulmonary embolism SOCIAL HISTORY Social History Tobacco Use ??? Smoking status: Former Smoker Packs/day: 1.00 Years: 27.00 Pack years: 27.00 Types: Cigarettes, Pipe Start date: 1969 Last attempt to quit: 1995 Years since quittin.3 ??? Smokeless tobacco: Never Used ??? Tobacco [...] hr Take 0.4 mg by mouth daily. ??? [DISCONTINUED] guaiFENesin 600 mg Tablet Extended Release 12hr Take 1,200 mg by mouth 2 times daily. No current facility-administered medications on file prior to visit. ALLERGIES Allergies Allergen Reactions ??? Ibuprofen CIS - Nausea/Vomiting ??? Clindamycin Other (See Comments) Memory issues. ROS Pertinent positive findings discussed above. No other findings on review of constitutional visual, cardiovascular, respiratory, gastrointestinal, genitourinary, musculoskeletal, dermatologic, neurological, psychiatric, endocrine, hematologic or immunologic systems. PHYSICAL EXAMINATION Wt Readings from Last 3 Encounters: 03/02/19 124.3 kg (274 lb) 12/08/18 125.6 kg (277 lb) 08/08/18 130.5 kg (287 lb 11.2 oz) General: Well developed, no distress Head/face: Normocephalic, atraumatic Ears: Narrow canals bilaterally with exostosis and cerumen impaction right > left. Normal TMs after cerumen removal. Oral cavity: Normal exam of the lips, [...] the TelePack Unit and uploaded to the [employer] Medicaid Eligibility Specialist. Findings Nasal cavity Right nasal cavity examination is normal. Turbinate is hypertrophic Nasopharynx normal Oropharynx Tongue base well healed - no recurrence or changes when compared with prior going back to 2017 Larynx S/p epiglottectomy with good reconstruction of edith-epiglottis. Normal vocal cords. Hypopharynx normal Procedure: Cerumen removal with microscope Indication: Wax impaction Involved ear: bilateral Description: Cerumen was removed using a combination of curettes and suction under direct microscopic visualization. The patient tolerated the procedure. Findings: Narrow canals. Cerumen impacted in cleft of soft tissue/bony outgrowth. Normal TMs. REVIEW OF IMAGES None ASSESSMENT/RECOMMENDATIONS MAGY Cleared for AYOUB if he wishes to proceed, especially the right ear. Mineral oil in the ears 1-2 times per week Cut back on milk Try to increase mucinex Follow up in 3-4 months I appreciate the opportunity to be involved in Mr. Bee's care. SRIRAM CONTRERAS MD 03/02/2019 documented in this encounter Plan of Treatment Upcoming Encounters Date Type Department Care Team (Late st Contact Info) Description 08/01/2024 1:00 PM EDT Office Visit Hematology/Oncology at [address] [phone] Dmitry Bhatti MD [facility] DR HEMATOLOGY/[place] [address] Ellen Mcrae APRN [facility] [place] [address] 08/01/2024 1:30 PM EDT Infusion Hematology Oncology at [address] [phone] documented as of this encounter Visit Diagnoses Diagnosis 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 Bilateral impacted cerumen Impacted cerumen Sensorineural hearing loss (SNHL) of both ears documented in this encounter Care Teams Water Safety Teacher Relationship Specialty Start Date End Date Jovon Sifuentes MD [address] [place] [address] PCP - General 09/30/10 09/10/21 documented as of this encounter
--- OUTSIDE RECORDS SUMMARY | 2024-05-18 11:27 | XMS_ITS | Encounter Summary ---
[place] [address] Care Team Providers Care Clothes Presser Name Role Phone Paulino Finley MD Primary Care Provider [phone] Encounter Details Date Type Department Care Team (Latest Contact Info) Description 05/21/2022 8:00 AM EDT Office Visit Audiology at [address] [phone] Valerie Toscano AUD [facility] [address] Asymmetrical sensorineural hearing loss; Fitting and adjustment of hearing aid Social [...] Progress Notes * Valerie Toscano, DAVID - 05/21/2022 8:00 AM EDT 05/21/2022 - Audiology Jose Bee was seen today for a hearing aid check-up. His hearing aids are used for management of his asymmetric sensorineural hearing loss. An audiologic evaluation was completed in January by David Montoya. Please refer to the audiogram under the Procedures tab in the electronic medical record for findings, impressions, and recommendations. Summary of Visit: ?? He has not been hearing as well with his hearing aids and he appears to be having issues charging them, particularly the right aid. ?? Both instruments were checked and cleaned, Blocked receivers and domes were replaced. Excessive debris was suctioned from the aids' microphones. In addition, excessive debris was cleaned from the contacts of the aids' battery service technician. The debris in the lettuce trimmer was likely preventing proper contact with the aids for consistent charging and the overall poor initial condition of the aids affectingthe performance of the devices. . A listening check following these measures nevertheless, noted the instruments to be functional. ?? Spare wax traps and domes were dispensed. ?? The care and maintenance of the aids was reviewed. ?? Firmware was updated in both instruments. ?? Verification of aided response was then completed using REM with a DSL 5a prescriptive fitting method and recent test results. Gains were adjusted to better approximate targets for speech. Loudness discomfort was denied at maximum power output levels. ?? New SREM and d-jossue measures were completed. ?? An audiologic evaluation and hearing aid check-up are recommended in one year. He knows to contact the clinic sooner for any interim concerns. Sabina Toscano MS, [facility] Clinical Coordinator, Adult Audiology Program [place] [phone] (fax) AMPLIFICATION EQUIPMENT LIST: HEARING AID RIGHT LEFT Make/Model/Style Phonak Audeo M30 R Phonak Audeo M30 R Casing Color White White Serial Number [id number] Battery Size Rechargeable Rechargeable Invoice number/date [id number] 08/24/19 [id number] 08/24/19 Other Comments PROGRAM/SETTINGS Fitting Algorithm DSL [...] HELENA / Dome specifics Size 03 M patient case manager small vented dome Size 03 M patient case manager small vented dome Impression Date Invoice number/date Other Comments ACCESSORIES Make/Model (color) Serial Number Warranty date Invoice number/date Settings Other Comments documented in this encounter Plan of Treatment Upcoming Encounters Date Type Department Care Team (Late st Contact Info) Description 08/01/2024 1:00 PM EDT Office Visit Hematology/Oncology at [address] [phone] Dmitry Bhatti MD [facility] DR HEMATOLOGY/[place] [address] Ellen Mcrae APRN [facility] [place] [address] 08/01/2024 1:30 PM EDT Infusion Hematology Oncology at [address] [phone] documented as of this encounter Visit Diagnoses Diagnosis Asymmetrical sensorineural hearing loss Sensorineural hearing loss, asymmetrical Fitting and adjustment of hearing aid documented in this encounter Care Teams Clothes Presser Relationship Specialty Start Date End Date Paulino Finley MD [address] [place] [address] PCP - General Emergency Medicine 09/11/21 documented as of this encounter
--- OUTSIDE RECORDS SUMMARY | 2024-05-18 11:27 | XMS_ITS | Encounter Summary ---
[place] [address] Care Team Providers Care Shipfitter Helper Name Role Phone Jovon Sifuentes MD Primary Care Provider Reason for Visit * Reason Onset Date Comments Appointment 07/04/2019 Encounter Details Date Type Department Care Team (Late Contact Info) Description 07/04/2019 Telephone Audiology at [address] [phone] Nawaf Kendrick Appointment Social History Tobacco Use Types Packs/Day Years Used Date Smoking Tobacco: Former Cigarettes 1995 Pipe Smokeless Tobacco: Never Comments:quit cigarettes [...] encounter Miscellaneous Notes * Telephone Encounter - Nawaf Kendrick - 07/04/2019 8:08 AM EDT Jose Jaclyn Bee needed to reschedule his HAF & HAC visits to September. documented in this encounter Plan of Treatment Upcoming Encounters Date Type Department Care Team (Late Contact Info) Description 08/01/2024 1:00 PM EDT Office Visit Hematology/Oncology at [address] [phone] Dmitry Bhatti MD [facility] DR HEMATOLOGY/[place] [address] Ellen Mcrae APRN [facility] [place] [address] 08/01/2024 1:30 PM EDT Infusion Hematology Oncology at [address] [phone] documented as of this encounter Visit Diagnoses Not on filedocumented in this encounter Care Teams Shipfitter Helper Relationship Specialty Start Date End Date Jovon Sifuentes MD [address] [place] [address] PCP - General 09/30/10 09/10/21 documented as of this encounter
--- OUTSIDE RECORDS SUMMARY | 2024-05-18 11:27 | XMS_ITS | Encounter Summary ---
[place] [address] Care Team Providers Care Chicken Hatchery Helper Name Role Phone Jovon Sifuentes MD Primary Care Provider Encounter Details Date Type Department Care Team (Late st Contact Info) Description 10/29/2020 Telephone Audiology at [address] [phone] Ramonita Tee Social History Tobacco Use Types Packs/Day Years [...] encounter Miscellaneous Notes * Telephone Encounter - Ramonita Tee - 10/29/2020 9:50 AM EST Scheduled ht/hac and fu with JYOTHI on same day, patient did ask about his coming in and I advisedit is patients only at this time but he could call prior to appointment to see if there has been any change to that. Briefly discussed via phone call with patient the Advanced Beneficiary Notice of Noncoverage (ABN) for the upcoming hearing evaluation appointment at [facility] Audiology. Patient is aware a packet will bemailed out discussing coverage of the appointment. We have verified the address on file as: [address] [facility] [address] Leah Mcmahon mailed out ABN for me. documented in this encounter Plan of Treatment Upcoming Encounters Date Type Department Care Team (Late st Contact Info) Description 08/01/2024 1:00 PM EDT Office Visit Hematology/Oncology at [address] [phone] Dmitry Bhatti MD [facility] DR HEMATOLOGY/[place] [address] Ellen Mcrae APRN [facility] [place] [address] 08/01/2024 1:30 PM EDT Infusion Hematology Oncology at [address] [phone] documented as of this encounter Visit Diagnoses Not on filedocumented in this encounter Care Teams Chicken Hatchery Helper Relationship Specialty Start Date End Date Jovon Sifuentes MD [address] [place] [address] PCP - General 09/30/10 09/10/21 documented as of this encounter
--- OUTSIDE RECORDS SUMMARY | 2024-05-18 11:27 | XMS_ITS | Encounter Summary ---
[place] [address] Care Team Providers Care Bridge Painter Name Role Phone Jovon Sifuentes MD Primary Care Provider Reason for Referral * Diagnostic Test (Routine) - Closed Specialty Diagnoses / Procedures Referred By Contac t Referred To Contact Radiology Diagnoses Cancer of base of tongue Procedures CT Chest w Contrast Sriram Contreras MD [facility] [place] [address] [facility] [place] [address] Referral ID Status Reason Start Date Expiration Date V isits Requested Visits Authorized [id number] Closed Specialty Service Requested 06/29/2019 06/28/2020 1 1 * Diagnostic Test (Routine) - Closed Specialty Diagnoses / Procedures Referred By Contac t Referred To Contact Radiology Diagnoses Cancer of base of tongue Procedures CT Neck Soft Tissue w Contrast (Generic) Sriram Contreras MD [facility] [place] [address] [facility] [place] [address] Referral ID Status Reason Start Date Expiration Date V isits Requested Visits Authorized [id number] Closed Specialty Service Requested 06/29/2019 06/28/2020 1 1 Reason for Visit * Reason Comments Follow-up Encounter Details Date Type Department Care Team (Late st Contact Info) Description 06/29/2019 9:40 AM EDT Office Visit [place] [address] Sriram Contreras MD [facility] [address] Cancer of base of tongue Social History [...] - Inhaled Oxygen Concentration - - Weight 126.6 kg (279 lb) 06/29/2019 9:43 AM EDT Height 190.5 cm (6' 3) 06/29/2019 9:43 AM EDT Body Mass Index 34.87 06/29/2019 9:43 AM EDT documented in this encounter Progress Notes * Sriram Contreras MD - 06/29/2019 9:40 AM EDT . [facility] OT[facility] HEAD AND NECK TUMOR CLINIC FOLLOW UP NOTE Jose Bee is a 68 y.o. male followed for: Primary: Right base of tongue and vallecula Stage: T2N0M0 P16 positive Treatment: TLM and open resection with neck dissection 1-12 July 2017 New issues since last visit: No new concerns He is having AYOUB evaluation today Swallowing is stable, no adenopathy, no weight loss PROBLEM LIST Patient Active Problem List Diagnosis Code ??? Carcinoma of base of tongue C01 ??? Pulmonary embolism I26.99 ??? Benign prostatic hyperplasia N40.0 ??? Atrial fibrillation I48.91 ??? KORI on CPAP G47.33, Z99.89 ??? Adult BMI 30+ [id number] PAST MEDICAL HISTORY Past Medical History: Diagnosis Date ??? Arthritis ??? Atrial fibrillation ??? BPH (benign prostatic hyperplasia) ??? Cataract, right eye ??? ED (erectile dysfunction) ??? Hypothyroidism ??? Pulmonary embolism SOCIAL HISTORY Social History Tobacco Use ??? Smoking status: Former Smoker Packs/day: 1.00 Years: 27.00 Pack years: 27.00 Types: Cigarettes, Pipe Start date: 1968 Last attempt to quit: 1995 Years since quittin.6 ??? Smokeless tobacco: Never Used ??? Tobacco [...] EXAMINATION Wt Readings from Last 3 Encounters: 06/29/19 126.6 kg (279 lb) 03/02/19 124.3 kg (274 lb) 12/08/18 125.6 kg (277 lb) General: Well developed, no distress Head/face: Normocephalic, atraumatic Ears: Narrow canals bilaterally with exostosis. Normal TMs Oral cavity: Normal exam of the lips, [...] the TelePack Unit and uploaded to the [employer]. Findings Nasal cavity Right nasal cavity examination is normal. Turbinate is hypertrophic Nasopharynx normal Oropharynx Tongue base well healed - no recurrence or changes when compared with prior going back to 2017 Larynx S/p epiglottectomy with good reconstruction of edith-epiglottis. Normal vocal cords. Hypopharynx normal REVIEW OF IMAGES None ASSESSMENT/RECOMMENDATIONS MAGY Hearing aid eval today Chest Ct did demonstrate pulmonary nodules. Will repeat imaging on follow up visit. Follow up in 4-5 month I appreciate the opportunity to be involved in Mr. Bee's care. SRIRAM CONTRERAS MD 06/29/2019 documented in this encounter Plan of Treatment Upcoming Encounters Date Type Department Care Team (Late st Contact Info) Description 08/01/2024 1:00 PM EDT Office Visit Hematology/Oncology at [address] [phone] Dmitry Bhatti MD [facility] HEMATOLOGY/[place] [address] Ellen Mcrae APRN [facility] [place] [address] 08/01/2024 1:30 PM EDT Infusion Hematology Oncology at [address] [phone] documented as of this encounter Results * CT Chest w Contrast (11/09/2019 9:47 AM EST) Anatomical Region Laterality Modality Chest Computed Tomogra phy Impressions 11/09/2019 10:50 AM EST No suspicious pulmonary nodule. No enlarging adenopathy within the chest. CT of the neck is reported separately. Thank you for letting us participate in the care of this patient. For questions regarding this report, please contact the number below. ? Narrative 11/09/2019 10:50 AM EST EXAMINATION: CT CHEST W CONTRAST CLINICAL HISTORY: history of tongue cnacer s/p resection. ??pulmonary nodules, assess stability TECHNIQUE: Chest CT with 110 ml of Omnipaque 350. COMPARISON: 08/08/2018. FINDINGS: Pulmonary parenchyma: Small new opacity at the anterior inferior base of the right lower lobe (series 3, image 178) has a linear configuration consistent with mild atelectasis or scarring. Stable subcentimeter nodule at the minor fissure (series 3, image 115). Other sub-5 mm nodules are also stable. Mild bibasilar atelectases/scarring. Airways: Central and segmental airways are patent. Pleura: No effusion. Lymph nodes: No abnormal enlargement lymph nodes within the chest. Heart and vasculature: Stable findings of the heart. Diffuse three-vessel coronary artery atherosclerotic calcifications are seen again. Contrast refluxed deep into the IVC and hepatic veins; of doubtful significance considering the stable findings of the heart. Limited upper abdomen: Cyst at the upper pole of the right kidney. Unchanged pelvocaliectasis or parapelvic cysts in the left kidney (stable dating back to 2016). Stable subcentimeter hypodensity in the right liver lobe consistent with a small cyst. Skeleton: Degenerative changes throughout the thoracic spine. Prominent kyphosis at the thoracolumbar junction. No aggressive osseous lesion. Procedure Note Alley Isbell MD - 11/09/2019 EXAMINATION: CT CHEST W CONTRAST CLINICAL HISTORY: history of tongue cnacer s/p resection. pulmonarynodules, assess stability TECHNIQUE: Chest CT with 110 ml of Omnipaque 350. COMPARISON: 08/08/2018. FINDINGS: Pulmonary parenchyma: Small new opacity at the anterior inferior base ofthe right lower lobe (series 3, image 178) has a linear configurationconsistent with mild atelectasis or scarring. Stable subcentimeter nodule at the minor fissure (series 3, image 115). Other sub-5 mm nodules are also stable. Mild bibasilar atelectases/scarring. Airways: Central and segmental airways are patent. Pleura: No effusion. Lymph nodes: No abnormal enlargement lymph nodes within the chest. Heart and vasculature: Stable findings of the heart. Diffusethree-vessel coronary artery atherosclerotic calcifications are seen again. Contrast refluxed deep into the IVC and hepatic veins; of doubtfulsignificance considering the stable findings of the heart. Limited upper abdomen: Cyst at the upper pole of the right kidney.Unchanged pelvocaliectasis or parapelvic cysts in the left kidney (stable datingback to 2017). Stable subcentimeter hypodensity in the right liver lobe consistent with asmall cyst. Skeleton: Degenerative changes throughout the thoracic spine. Prominentkyphosis at the thoracolumbar junction. No aggressive osseous lesion. IMPRESSION No suspicious pulmonary nodule. No enlarging adenopathy within thechest. CT of the neck is reported separately. Thank you for letting us participate in the care of this patient. Forquestions regarding this report, please contact the number below. Sriram Contreras MD IMG CT ORDERABLES * CT Neck Soft Tissue w Contrast (Generic) (11/09/2019 9:47 AM EST) Anatomical Region Laterality Modality Neck, Head Computed Tomogra phy Impressions 11/09/2019 9:58 AM EST No evidence of recurrent neoplasm. This study was interpreted and the final report dictated in [employer]. Thank you for letting us participate in the care of this patient. For questions regarding this report, please contact the number below. ? Electronically signed by: Saud Sloan [facility] ([phone]), at 11/09/2019 9:58 AM Narrative 11/09/2019 9:58 AM EST EXAMINATION: CT NECK SOFT TISSUE W CONTRAST (GENERIC) CLINICAL HISTORY: tongue base cancer TECHNIQUE: CT neck performed after the intravenous administration of contrast. . COMPARISON: CT neck of 08/08/2018 FINDINGS: The architectural distortion of the intrinsic musculature of the tongue is unaltered from the prior study. There is evidence of prior right-sided neck dissection. There is no new mass or abnormal enhancement within the neck. No adenopathy is present. The salivary glands appear normal. The visible paranasal sinuses and mastoids are clear. The visible portions of the orbits and brain show no abnormality. No expansile or destructive bone lesion is evident. Procedure Note Saud Sloan MD - 11/09/2019 EXAMINATION: CT NECK SOFT TISSUE W CONTRAST (GENERIC) CLINICAL HISTORY: tongue base cancer TECHNIQUE: CT neck performed after the intravenous administration of contrast. . COMPARISON: CT neck of 08/08/2018 FINDINGS: The architectural distortion of the intrinsic musculature of the tongueis unaltered from the prior study. There is evidence of prior right-sidedneck dissection. There is no new mass or abnormal enhancement within the neck.No adenopathy is present. The salivary glands appear normal. The visibleparanasal sinuses and mastoids are clear. The visible portions of the orbits andbrain show no abnormality. No expansile or destructive bone lesion is evident. IMPRESSION No evidence of recurrent neoplasm. This study was interpreted and the final report dictated in [place] Re[place]. Thank you for letting us participate in the care of this patient. Forquestions regarding this report, please contact the number below. 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 documented in this encounter Care Teams Bridge Painter Relationship Specialty Start Date End Date Jovon Sifuentes MD [address] [place] [address] PCP - General 09/30/10 09/10/21 documented as of this encounter
--- OUTSIDE RECORDS SUMMARY | 2024-05-18 11:27 | XMS_ITS | Encounter Summary ---
Author Organization [facility] [place] [address] Care Team Providers Care Industrial Technology Teacher Name Role Phone Paulino Finley MD Primary Care Provider [phone] Encounter Details Date Type Department Care Team (Late Contact Info) Description 06/04/2023 Ancillary Procedure [place] [address] Paulino Finley MD [address] [place] [address] Social History Tobacco Use Types Packs/Day Years [...] 1:00 PM EDT Office Visit Hematology/Oncology at [address] [phone] Dmitry Bhatti MD [facility] DR HEMATOLOGY/[place] [address] Ellen Mcrae APRN [facility] [place] [address] 08/01/2024 1:30 PM EDT Infusion Hematology Oncology at [address] [phone] documented as of this encounter Procedures Procedure Name Priority Date/Time Associated Diagnosis Comments FILM LIBRARY STORAGE ONLY NUCLEAR MEDICINE Routine 06/04/2023 12:00 AM EDT documented in this encounter Results * Film Library- Storage Only nuclear medicine (06/04/2023 12:00 AM EDT) Narrative [facility] - 11/23/2023 2:50 PM EST This exam is auto-finalizing. It's purpose is for storage only. Paulino Finley MD G FILM LIBRARY ORD ERABLES Performing Organization Address City/State/[facility] Co de Phone Number [place], [place] documented in this encounter Visit Diagnoses Not on filedocumented in this encounter Care Teams Industrial Technology Teacher Relationship Specialty Start Date End Date Paulino Finley MD [address] [place] [address] PCP - General Emergency Medicine 09/11/21 documented as of this encounter
--- OUTSIDE RECORDS SUMMARY | 2024-05-18 11:27 | XMS_ITS | Encounter Summary ---
[place] [address] Care Team Providers Care Environmental Field Team Member Name Role Phone Jovon Sifuentes MD Primary Care Provider Reason for Referral * Diagnostic Test (Routine) - Closed Specialty Diagnoses / Procedures Referred By Contac t Referred To Contact Radiology Diagnoses Cancer of base of tongue Procedures CT Neck Soft Tissue w Contrast (Generic) Sriram Contreras MD [facility] [place] [address] [facility] [place] [address] Referral ID Status Reason Start Date Expiration Date V isits Requested Visits Authorized [id number] Closed Specialty Service Requested 06/29/2019 06/28/2020 1 1 * Diagnostic Test (Routine) - Closed Specialty Diagnoses / Procedures Referred By Contac t Referred To Contact Radiology Diagnoses Cancer of base of tongue Procedures CT Chest w Contrast Sriram Contreras MD [facility] [place] [address] [facility] [place] [address] Referral ID Status Reason Start Date Expiration Date V isits Requested Visits Authorized [id number] Closed Specialty Service Requested 06/29/2019 06/28/2020 1 1 Reason for Visit * Diagnostic Test (Routine) - Closed Specialty Diagnoses / Procedures Referred By Huma t Referred To Contact Radiology Diagnoses Cancer of base of tongue Procedures CT Chest w Contrast Sriram Contreras MD [facility] [place] [address] [facility] [place] [address] Referral ID Status Reason Start Date Expiration Date V isits Requested Visits Authorized [id number] Closed Specialty Service Requested 06/29/2019 06/28/2020 1 1 Encounter Details Date Type Department Care Team (Latest Contact Info) Description 11/09/2019 8:56 AM EST - 11/09/2019 11:59 PM EST [place] [address] Sriram Contreras MD [facility] [place] [address] Cancer of base of tongue Discharge Disposition: Home Social History Tobacco Use [...] Sig Dispensed Refills Start Date End Date glucosamine/chondr mclaughlin A sod (OSTEO BI-FLEX ORAL) Take by mouth 2 times daily. ELIQUIS 5 mg Tablet 2 times daily. 0 10/21/2017 acetaminophen (TYLENOL) 325 mg Tablet Take 2 tablets by mouth every 4 hours. 30 tablet 1 07/29/2017 tamsulosin (FLOMAX) 0.4 mg Capsule, Sust. Release 24 hr Take 0.4 mg by mouth daily. melatonin 5 mg Tablet Take 10 mg by mouth nightly. 10/12/2023 documented as of this encounter Plan of Treatment Upcoming Encounters Date Type Department Care Team (Late st Contact Info) Description 08/01/2024 1:00 PM EDT Office Visit Hematology/Oncology at [address] [phone] Dmitry Bhatti MD [facility] DR HEMATOLOGY/[place] [address] Ellen Mcrae APRN [facility] [place] [address] 08/01/2024 1:30 PM EDT Infusion Hematology Oncology at [address] [phone] documented as of this encounter Procedures Procedure Name Priority Date/Time Associated Diagnosis Comments CT CHEST W CONTRAST Routine 11/09/2019 9 :47 AM EST Cancer of base of tongue CT NECK SOFT TISSUE W CONTRAST Routine 11/09/2019 9:47 AM EST Cancer of base of tongue documented in this encounter Results * CT Neck Soft Tissue w Contrast [...] contact the number below. ? Narrative 11/09/2019 9:58 AM EST EXAMINATION: CT [...] interpreted and the final report dictated in [place]. Thank you for letting us participate in the care of this patient. Forquestions regarding this report, please contact the number below. Sriram Contreras MD IMG CT ORDERABLES * CT Chest w Contrast (11/09/2019 9:47 [...] the left kidney (stable dating back to 2017). Stable subcentimeter hypodensity in the [...] base of tongue documented in this encounter Administered Medications Inactive Administered Medications - up to 3 most recent administrations Medication Order MAR Action Action Date Dose Rate Site iohexol (OMNIPAQUE) 350 mg/mL solution 0-200 mL 0-200 mL, Intravenous, ONCE PRN, 1 dose, Starting on Shabana 11/09/19 at 0946, Until Shabana 11/09/19 at 0939, Per Protocol, Warning Vesicant/Irritant Medication , Radiology Contrast, Routine Given 11/09/2019 9:39 AM EST 110 mLs documented in this encounter Care Teams Environmental Field Team Member Relationship Specialty Start Date End Date Jovon Sifuentes MD [address] [place] [address] PCP - General 09/30/10 09/10/21 documented as of this encounter
--- OUTSIDE RECORDS SUMMARY | 2024-05-18 11:27 | XMS_ITS | Encounter Summary ---
Author Organization [facility] Address [facility] [place] [address] Care Team Providers Care Parliamentary Counsel Name Role Phone Paulino Finley MD Primary Care Provider [phone] Reason for Visit * Reason Comments Follow-up Has to Clear throat a lot Encounter Details Date Type Department Care Team (Late st Contact Info) Description 05/21/2022 11:40 AM EDT Office [place] [address] Sriram Contreras MD [facility] [place] [address] Cancer of base of tongue Social History [...] - Inhaled Oxygen Concentration - - Weight 133.8 kg (295 lb) 05/21/2022 11:37 AM EDT Height 190.5 cm (6' 3) 05/21/2022 11:37 AM EDT Body Mass Index 36.87 05/21/2022 11:37 AM EDT documented in this encounter Progress Notes * Sriram Contreras MD - 05/21/2022 11:40 AM EDT . [facility] [place] OTOL[facility]OLOGY HEAD AND NECK TUMOR CLINIC FOLLOW UP NOTE Jose Bee is a 71 y.o. 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 Using hearing aids. Swallowing stable. Has been more tired lately. Has CPAP and is getting this checked. Per patient normal labs including thyroid although we do not have this information on file. PROBLEM LIST Patient Active Problem List Diagnosis Code ??? Carcinoma of base of tongue C01 ??? Pulmonary embolism I26.99 ??? Benign prostatic hyperplasia N40.0 ??? Atrial fibrillation I48.91 ??? KORI on CPAP G47.33, Z99.89 ??? Adult BMI 30+ [id number] PAST MEDICAL HISTORY Past Medical History: Diagnosis Date ??? Arthritis ??? Atrial fibrillation ??? BPH (benign prostatic hyperplasia) ??? Cataract, right eye ??? ED (erectile dysfunction) ??? Hypothyroidism ??? Pulmonary embolism SOCIAL HISTORY Social History Tobacco Use ??? Smoking status: Former Smoker Packs/day: 1.00 Years: 27.00 Pack years: 27.00 Types: Cigarettes, Pipe Start date: 1968 Quit date: 1995 Years since quittin.5 ??? Smokeless tobacco: Never Used ??? Tobacco [...] EXAMINATION Wt Readings from Last 3 Encounters: 05/21/22 133.8 kg (295 lb) 12/05/20 (!) 141.1 kg (311 lb) 06/06/20 127 kg (280 lb) General: Well developed, no distress Head/face: [...] the TelePack Unit and uploaded to the [employer]. Findings Nasal cavity Right nasal cavity examination is normal. Nasopharynx normal Oropharynx Tongue base well healed - no recurrence or changes when compared with prior going back to 2017. Some fullness posterior pharynx. This appears unchanged from priors. Larynx S/p epiglottectomy with good reconstruction of edith-epiglottis. Normal vocal cords. Hypopharynx normal REVIEW OF IMAGES None ASSESSMENT/RECOMMENDATIONS MAGY Follow up in 1 year I appreciate the opportunity to be involved in Mr. Bee's care. SRIRAM CONTRERAS MD 05/21/2022 documented in this encounter Plan of Treatment Upcoming Encounters Date Type Department Care Team (Late st Contact Info) Description 08/01/2024 1:00 PM EDT Office Visit Hematology/Oncology at [address] [phone] Dmitry Bhatti MD [facility] DR HEMATOLOGY/[place] [address] Ellen Mcrae APRN [facility] [place] [address] 08/01/2024 1:30 PM EDT Infusion Hematology Oncology at [address] [phone] documented as of this encounter Visit Diagnoses Diagnosis 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 documented in this encounter Care Teams Parliamentary Counsel Relationship Specialty Start Date End Date Paulino Finley MD [address] [place] [address] PCP - General Emergency Medicine 09/11/21 documented as of this encounter
--- OUTSIDE RECORDS SUMMARY | 2024-05-18 11:27 | XMS_ITS | Encounter Summary ---
[place] [address] Care Team Providers Care Hvac Engineer Name Role Phone Jovon Sifuentes MD Primary Care Provider Encounter Details Date Type Department Care Team (Latest Contact Info) Description 09/25/2019 9:30 AM EST Office Visit Audiology at [address] [phone] Valerie Toscano, [facility] [address] Sensorineural hearing loss, asymmetrical Social History Tobacco [...] this encounter Progress Notes * Valerie Toscano, MS - 09/25/2019 9:30 AM EST 09/25/2019 AUDIOLOGY Jose Bee was seen today for a follow-up to the recent fitting of the hearing aids described in the chart below. The hearing aids are used for management of his asymmetric sensorineural hearing loss. He was accompanied by his . Summary of Visit: ?? He has been wearing the hearing aids for approximately ten hours or so as day. However, he has found himself wanting to turn down the volume a bit when he is in noisier settings. Datalogging confirmed this average as well as his volume adjustments when the instruments have been in the Speech inNoise settings. ?? The readjustment to hearing was reviewed as well as the continued importance of consistent use (with the exception of hazardous noise environments when he should be wearing hearing protection).. ?? Noise Block was increased in agressiveness under all Autosense OS settings to hopefully take theedge off background noise a bit further. ?? He did not report any concerns with the overall care, maintenance and comfort of the aids. ?? He did express concern regarding battery life, as he recalls one day that the battery charge didnot last the full day. ?? He was requested to monitor battery life, as he should be able to get a full day of use with a full charge. Should this continue to be an issue, he was advised to contact the clinic. ?? He questioned the ability to pair the hearing aids to his cell phone, as this was not set up at the time of the fitting. ?? His phone was paired to his hearing aids. Although he had a very weak cell signal in the consultroom to allow for a phone call, he was able to confirm streaming from his phone. The hands free useof the phone was reviewed. ?? Mr. Bee will be seen again in one year for audiologic evaluation and hearing aid check-up.He knows however, to contact the clinic sooner with any interim concerns. Sabina Toscano MS, [facility]A Clinical Coordinator, [place] [address] (fax) AMPLIFICATION EQUIPMENT LIST: HEARING AID RIGHT LEFT Make/Model/Style Phonak Audeo M30 R Phonak Audeo M30 R Casing Color White White Serial Number [id number] Battery Size Rechargeable Rechargeable Invoice number/date [id number] 08/24/19 [id number] 10/17/19 Other Comments PROGRAM/SETTINGS Fitting Algorithm DSL Adult [...] HELENA / Dome specifics Size 03 M imaging tech small vented dome Size 03 M imaging tech small vented dome Impression Date Invoice number/date Other Comments ACCESSORIES Make/Model (color) Serial Number Warranty date Invoice number/date Settings Other Comments documented in this encounter Plan of Treatment Upcoming Encounters Date Type Department Care Team (Late st Contact Info) Description 08/01/2024 1:00 PM EDT Office Visit Hematology/Oncology at [address] [phone] Dmitry Bhatti MD [facility] DR HEMATOLOGY/[place] [address] Ellen Mcrae APRN [facility] [place] [address] 08/01/2024 1:30 PM EDT Infusion Hematology Oncology at [address] [phone] documented as of this encounter Visit Diagnoses Diagnosis Sensorineural hearing loss, asymmetrical documented in this encounter Care Teams Hvac Engineer Relationship Specialty Start Date End Date Jovon Sifuentes MD [address] [place] [address] PCP - General 09/30/10 09/10/21 documented as of this encounter
--- OUTSIDE RECORDS SUMMARY | 2024-05-18 11:27 | XMS_ITS | Encounter Summary ---
[place] [address] Care Team Providers Care Polysomnography Tech Name Role Phone Jovon Sifuentes MD Primary Care Provider [phone] Encounter Details Date Type Department Care Team (Late st Contact Info) Description 12/05/2020 8:45 AM EST Office Visit Audiology at [address] [phone] Marianela Vyas, DAVID [facility] [place] [address] Procedure not carried out because of patient's decision Social History Tobacco Use Types Packs/Day Years [...] Progress Notes * Marianela Vyas, DAVID - 12/05/2020 8:45 AM EST Mr. Bee was scheduled today for an updated audiologic evaluation. The Medicare ABN form was presented to the patient upon arrival. As no guarantee could be made that today's evaluation would becovered by Medicare or any supplemental insurance, Mr. Bee ultimately selected Option 3 anddeclined that the evaluation be completed. Sudarshan Orozco [place] [employer] [place] [address] documented in this encounter Plan of Treatment Upcoming Encounters Date Type Department Care Team (Late st Contact Info) Description 08/01/2024 1:00 PM EDT Office Visit Hematology/Oncology at [address] [phone] Dmitry Bhatti MD [facility] DR HEMATOLOGY/[place] [address] Ellen Mcrae APRN [facility] [place] [address] 08/01/2024 1:30 PM EDT Infusion Hematology Oncology at [address] [phone] documented as of this encounter Visit Diagnoses Diagnosis Procedure not carried out because of patient's decision documented in this encounter Care Teams Polysomnography Tech Relationship Specialty Start Date End Date Jovon Sifuentes MD [address] [place] [address] PCP - General 09/30/10 09/10/21 documented as of this encounter
--- OUTSIDE RECORDS SUMMARY | 2024-05-18 11:27 | XMS_ITS | Encounter Summary ---
Author Organization [facility] [place] [address] Care Team Providers Care Software Quality Assurance Analyst Name Role Phone Paulino Finley MD Primary Care Provider Reason for Visit * Consultation (Routine) - Closed Specialty Diagnoses / Procedures Referred By Contac t Referred To Contact Audiology Diagnoses Unspecified hearing loss, unspecified ear Paulino Finley MD [address] [place] [address] [facility] [address]f [address] [place] [phone] Referral ID Status Reason Start Date Expiration Date V isits Requested Visits Authorized [id number] Closed Consult, Test & Treat Connection Center PCP Updated and/or Approved 09/01/2021 09/01/2022 12 12 Encounter Details Date Type Department Care Team (Latest Contact Info) Description 01/23/2022 9:00 AM EDT Office Visit Audiology at [address] [phone] Yulissa Munoz, DAVID [facility] [place] [address] Asymmetrical sensorineural hearing loss Social History Tobacco [...] as of this encounter Progress Notes * Yulissa Munoz, AUD - 01/23/2022 9:00 AM EDT [facility] [place] AUDIOLOGIC EVALUATION Name: Jose Bee Age: 71 y.o. Referring provider: Paulino Finley MD Date: 01/23/2022 Reason for referral/visit: Evaluation of hearing loss PPE used during visit: Goggles, Level 2 mask History: Mr. Bee is known through this Section for asymmetric sensorineural hearing loss, L>R. Medical history includes tongue cancer for which he has been followed by Dr. Contreras in ENT. His last audiologic evaluation was in 2019. Today, he reported that the TV volume has increased since 2019. His often complains about his hearing and he obtained a referral from his PCP for re-evaluation.He stated that he puts his hearing aids in about mid afternoon. He's an avid shooter and doesn't wear them while exposed to hazardous noise. When he's in the house with his , he wears the aids. He denied any new otologic concerns, though for 30 years the ears have itched way deep inside. He'sused steroid cream and flushes the wax out of the ears. When his ears don't bother him, he calls katy good day. If the ears are itchy, it's quite bothersome. The hearing aids can bother his ears. Other medical history: A-Fib, KORI. Please see medical record for detailed history. EVALUATION: (please refer to audiogram) RESULTS/IMPRESSIONS: ?? Otoscopy revealed exostosis, bilaterally. ?? Audiometric testing was consistent with asymmetric high frequency sensorineural hearing loss, poorer on the left by 15-50 dB. Normal/borderline normal hearing for both ears from 250-1000 Hz, sloping to severe/profound SNHL through 8000 Hz. Hearing sensitivity was stable for both ears compared [id number]. ?? Word recognition was good (84%) for the right ear and poor (64%) on the left at an elevated presentation level of 85 dB HL. It is my opinion that the pattern of hearing loss is consistent with significant history of noise exposure and presbycusis. ??? QuickSIN test was administered. He scored a +8.5 dB SNR loss binaurally. o The QuickSIN is a speech in noise test that measured the ability to hear in noise. Speech understanding in noise cannot be reliably predicted from the pure tone audiogram. SNR loss is the aytpmldznyapklo-af-mrlkz ratio required by an individual to understand speech in noise, as compared to normal performance. The recorded sentences represent a realistic situation of a social gathering in whichthe listern may tune out the target talker and tune in one or more of the background talkers. o A normal hearing person requires about +2 dB SNR (target talker 2 dB louder than background babble talkers) to correctly repeat 50% of the singer words on the QuickSIN. Therefore, normal/near normal performance on the QuickSIN is a score of 0-3 dB SNR loss. A SNR loss of 3-7 dB indicates a mild SNR loss. A score of 7-15 dB indicates a moderate SNR loss. Greater than 15 dB indicates a severe SNR loss. ?? Today's results indicated substantial auditory based communication deficits. Individuals with high frequency hearing loss experience difficulty hearing clearly or accurately while listening in everyday environments including background noise. Given the degree and configuration of hearing loss, di fficulties are expected in hearing the high-frequency speech sounds of 's', 'f', and 'th'. Jose Bee will rely upon visual cues to fill in the gaps when speech sounds are not clear/audible in running speech. ?? He requested domes and wax guards which were dispensed at the end of his visit. He also reportedthat he never heard from our department to follow up with Dr. Contreras for October 2021. RECOMMENDATIONS: 1. Return to clinic for hearing aid check. 2. Return to ENT for re-eval with Dr. Salgado as previously recommended from May 2021. 3. Audiologic re-evaluation should concerns arise regarding change in auditory status. 4. Use of communication strategies in noisy environments (i.e speaking face to face and reducing background noise). 5. Use of hearing protection when exposed to hazardous noise. Please do not hesitate to contact this Section at [phone] if there are questions regarding this report or its recommendations. David Montoya Board [place] [address] Attachment: audiogram CC: Paulino Finley MD documented in this encounter Plan of Treatment Upcoming Encounters Date Type Department Care Team (Late st Contact Info) Description 08/01/2024 1:00 PM EDT Office Visit Hematology/Oncology at [address] [phone] Dmitry Bhatti MD [facility] DR HEMATOLOGY/[place] [address] Ellen Mcrae APRN [facility] [place] [address] 08/01/2024 1:30 PM EDT Infusion Hematology Oncology at [address] [phone] documented as of this encounter Procedures Procedure Name Priority Date/Time Associated Diagnosis Comments COMPREHENSIVE HEARING TEST Routine 01/23/2022 8:39 AM EDT documented in this encounter Results * Comprehensive hearing test (01/23/2022 8:39 AM EDT) 01/23/2022 8:39 AM EDT Narrative [facility]UD[employer] [facility] - 01/23/2022 8:39 AM EDT See report. Recorded MEEI. QuickSIN was +8.5 dB SNR loss binaurally at 80 dB HL. Procedure Note Unknown - 01/23/2022 See report. Recorded MEEI. QuickSIN was +8.5 dB SNR loss binaurally at 80dB HL. Yulissa [facility]UD[facility] documented in this encounter Visit Diagnoses Diagnosis Asymmetrical sensorineural hearing loss Sensorineural hearing loss, asymmetrical documented in this encounter Care Teams Software Quality Assurance Analyst Relationship Specialty Start Date End Date Paulino Finley MD [address] [place] [address] PCP - General Emergency Medicine 09/11/21 documented as of this encounter
--- OUTSIDE RECORDS SUMMARY | 2024-05-18 11:27 | XMS_ITS | Encounter Summary ---
Author Organization [facility] [place] [address] Care Team Providers Care Rivet Hammer Machine Operator Name Role Phone Paulino Finley MD Primary Care Provider [phone] Encounter Details Date Type Department Care Team (Late st Contact Info) Description 07/13/2023 Notes [place] [address] Casi Dong Social History Tobacco Use Types [...] encounter Progress Notes * Casi Dong - 07/13/2023 10:04 AM EDT I sent a letter and the application for assistance with Nubeqa to the patient for them to complete,sign and return to the Medication Assistance Program. The MAP office will follow up with the patient in 5 business days to see if the patient has received the application and if they have any questions. I sent the application for assistance with Nubeqa to for their signature and prescription. I will follow through with the remainder of the application once everything is returned to me. documented in this encounter Plan of Treatment Upcoming Encounters Date Type Department Care Team (Late st Contact Info) Description 08/01/2024 1:00 PM EDT Office Visit Hematology/Oncology at [address] [phone] Dmitry Bhatti MD [facility] HEMATOLOGY/[place] [address] Ellen Mcrae APRN [facility] [place] [address] 08/01/2024 1:30 PM EDT Infusion Hematology Oncology at [address] [phone] documented as of this encounter Visit Diagnoses Not on filedocumented in this encounter Care Teams Rivet Hammer Machine Operator Relationship Specialty Start Date End Date Paulino Finley MD [address] [place] [address] PCP - General Emergency Medicine 09/11/21 documented as of this encounter
--- OUTSIDE RECORDS SUMMARY | 2024-05-18 11:27 | XMS_ITS | Encounter Summary ---
Author Organization [facility] [place] [address] Care Team Providers Care Last Chalker Name Role Phone Paulino Finley MD Primary Care Provider [phone] Encounter Details Date Type Department Care Team (Late Contact Info) Description 07/29/2023 Ancillary Procedure [place] [phone] Paulino Finley MD [address] [place] [address] Social History Tobacco Use Types Packs/Day Years [...] 1:00 PM EDT Office Visit Hematology/Oncology at [address] [phone] Dmitry Bhatti MD [facility] DR HEMATOLOGY/[place] [address] Ellen Mcrae APRN [facility] [place] [place] [address] 08/01/2024 1:30 PM EDT Infusion Hematology Oncology at [address] [phone] documented as of this encounter Procedures Procedure Name Priority Date/Time Associated Diagnosis Comments FILM LIBRARY STORAGE ONLY CT CHEST Routine 07/29/2023 12:00 AM EDT documented in this encounter Results * Film Library- Storage Only CT Chest (07/29/2023 12:00 AM EDT) Narrative [facility] 07/30/2023 2:12 PM EDT This exam is auto-finalizing. It's purpose is for storage only. Paulino Finley MD G FILM LIBRARY ORD ERABLES Performing Organization Address City/State/[facility] Co de Phone Number [place], [place] documented in this encounter Visit Diagnoses Not on filedocumented in this encounter Care Teams Last Chalker Relationship Specialty Start Date End Date Paulino Finley MD [address] [place] [address] PCP - General Emergency Medicine 09/11/21 documented as of this encounter
--- OUTSIDE RECORDS SUMMARY | 2024-05-18 11:27 | XMS_ITS | Encounter Summary ---
Author Organization [facility] [place] [address] Care Team Providers Care Marketing Development Specialist Name Role Phone Jovon Sifuentes MD Primary Care Provider [phone] Encounter Details Date Type Department Care Team (Late st Contact Info) Description 06/06/2020 10:00 AM EDT Office [place] [address] Sriram Contreras MD [facility] [place] [address] Cancer of base of tongue Social History [...] - Inhaled Oxygen Concentration - - Weight 127 kg (280 lb) 06/06/2020 9:59 AM EDT Height 190.5 cm (6' 3) 06/06/2020 9:59 AM EDT Body Mass Index 35 06/06/2020 9:59 AM EDT documented in this encounter Progress Notes * Sriram Contreras MD - 06/06/2020 10:00 AM EDT . [facility] [place] HEAD AND NECK TUMOR CLINIC FOLLOW UP NOTE Jose Bee is a 69 y.o. 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 No complaints pertaining tothe throat with normal swallowing, no pain, no adenopathy. PROBLEM LIST Patient Active Problem List Diagnosis Code ??? Carcinoma of base of tongue C01 ??? Pulmonary embolism I26.99 ??? Benign prostatic hyperplasia N40.0 ??? Atrial fibrillation I48.91 ??? KORI on CPAP G47.33, Z99.89 ??? Adult BMI 30+ [id number] PAST MEDICAL HISTORY Past Medical History: Diagnosis [...] mg Tablet 2 times daily. 0 ??? tamsulosin (FLOMAX) 0.4 mg Capsule, Sust. Release 24 hr Take 0.4 mg by mouth daily. ??? acetaminophen (TYLENOL) 325 mg Tablet Take 2 tablets by mouth every 4 hours. (Patient taking differently: Take 650 mg by mouth as needed.) 30 tablet 1 No current facility-administered medications on file prior to visit. ALLERGIES Allergies Allergen Reactions ??? Ibuprofen CIS - Nausea/Vomiting ??? Clindamycin Other (See Comments) Memory issues. ROS Pertinent positive findings discussed above. No other findings on review of constitutional visual, cardiovascular, respiratory, gastrointestinal, genitourinary, musculoskeletal, dermatologic, neurological, psychiatric, endocrine, hematologic or immunologic systems. PHYSICAL EXAMINATION Wt Readings from Last 3 Encounters: 06/06/20 127 kg (280 lb) 11/09/19 131.1 kg (289 lb) 06/29/19 126.6 kg (279 lb) General: Well developed, no distress Head/face: [...] the [employer] and uploaded to the [employer] Intermediate Manager. Findings Nasal cavity Right nasal cavity examination [...] in Mr. Bee's care. SRIRAM CONTRERAS MD 06/06/2020 documented in this encounter Plan of Treatment Upcoming Encounters Date Type Department Care Team (Late st Contact Info) Description 08/01/2024 1:00 PM EDT Office Visit Hematology/Oncology at [address] [phone] Dmitry Bhatti MD [facility] DR HEMATOLOGY/[place] [address] Ellen Mcrae APRN [facility] [place] [address] 08/01/2024 1:30 PM EDT Infusion Hematology Oncology at [address] [phone] documented as of this encounter Visit Diagnoses Diagnosis 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 documented in this encounter Care Teams Marketing Development Specialist Relationship Specialty Start Date End Date Jovon Sifuentes MD [address] [place] [address] PCP - General 09/30/10 09/10/21 documented as of this encounter
--- OUTSIDE RECORDS SUMMARY | 2024-05-18 11:27 | XMS_ITS | Encounter Summary ---
Author Organization [facility] [place] [address] Care Team Providers Care Physician President Name Role Phone Paulino Finley MD Primary Care Provider Encounter Details Date Type Department Care Team (Latest Contact Info) Description 08/03/2023 Travel Social History Tobacco Use Types Packs/Day [...] PM EDT Office Visit Hematology/Oncology at [address] [phone] Dmitry Bhatti MD [facility] DR HEMATOLOGY/[place] [address] Ellen Mcrae APRN [facility] [place] [address] 08/01/2024 1:30 PM EDT Infusion Hematology Oncology at [address] [phone] documented as of this encounter Visit Diagnoses Not on filedocumented in this encounter Care Teams Physician President Relationship Specialty Start Date End Date Paulino Finley MD [address] [place] [address] PCP - General Emergency Medicine 09/11/21 documented as of this encounter
--- OUTSIDE RECORDS SUMMARY | 2024-05-18 11:27 | XMS_ITS | Encounter Summary ---
[place] [address] Care Team Providers Care Day Haul Or Farm Charter Bus Driver Name Role Phone Paulino Finley MD Primary Care Provider [phone] Encounter Details Date Type Department Care Team (Late Contact Info) Description 02/18/2023 Telephone Audiology at [address] [phone] Ester Cardenas Social History Tobacco Use Types Packs/Day Years [...] encounter Miscellaneous Notes * Telephone Encounter - Ester Cardenas - 02/18/2023 1:26 PM EDT Returned a call to patient about buzzing and squealing that is driving him nuts. Recommended havinghis PCP check his ear for wax. If that doesn't help he will drop his hearing aid off next week. documented in this encounter Plan of Treatment Upcoming Encounters Date Type Department Care Team (Late st Contact Info) Description 08/01/2024 1:00 PM EDT Office Visit Hematology/Oncology at [address] [phone] Dmitry Bhatti MD [facility] DR HEMATOLOGY/[place] [address] Ellen Mcrae APRN [facility] [place] [address] 08/01/2024 1:30 PM EDT Infusion Hematology Oncology at [address] [phone] documented as of this encounter Visit Diagnoses Not on filedocumented in this encounter Care Teams Day Ha[employer] Charter Bus Driver Relationship Specialty Start Date End Date Paulino Finley MD [address] [place] [address] PCP - General Emergency Medicine 09/11/21 documented as of this encounter
--- OUTSIDE RECORDS SUMMARY | 2024-05-18 11:27 | XMS_ITS | Encounter Summary ---
[place] [address] Care Team Providers Care Cook Manager Name Role Phone Jovon Sifuentes MD Primary Care Provider Encounter Details Date Type Department Care Team (Latest Contact Info) Description 06/29/2019 10:15 AM EDT Office Visit Audiology at [address] [phone] Yulissa Munoz AUD [facility] [place] [address] Bilateral asymmetric sensorineural hearing loss Social History Tobacco Use [...] this encounter Progress Notes * Yulissa Munoz, DAVID - 06/29/2019 10:15 AM EDT AUDIOLOGY SECTION 06/29/2019 HEARING AID SELECTION APPOINTMENT Jose Bee, a 68 y.o.-year old male, returns today for a hearing aid selection appointment. A hearing evaluation from February showed bilateral asymmetric sensorineural hearing loss L>R, forwhich the fitting of hearing aids was recommended. Jose Bee identified several situations in which he experiences significant hearing difficulty, which included watching TV and hearing his grandaughter and . He's in the [place] a lot, rides a tractor, shooting/hunting. He is concerned he may loose a hearing aid out in the [place]. Jose Bee was counseled regarding hearing aid styles, technology, and pricing options. Heconsidered an in the ear style but chose a HELENA. In consideration of Jose Bee's auditory demands and degree/configuration of hearing loss, it was agreed that Phonak Audeo MR 30 hearing aidswould be adequate for his needs. Mr. Bee was counseled about the terms of the purchase and the thirty day return privilege. The New Hearing Instruments: Itemized Fees form was reviewed and signed, and he understood that payment for the hearing aids is due in full prior to the hearing aid fitting appointment. PLAN Binaural hearing aid fitting. Discussed that this provider will be out on maternity leave. He will be scheduled with the next available provider for his HAF and HAC. Depending on sound recover and real ear measurements, he may need c Shells but will try with domes. NOTE: Wants a VC and a MUTE at the fitting Sudarshan Montoya, Senior Courtroom Clerk [facility] [place] [address] ; [phone] (fax) documented in this encounter Plan of Treatment Upcoming Encounters Date Type Department Care Team (Late st Contact Info) Description 08/01/2024 1:00 PM EDT Office Visit Hematology/Oncology at [address] [phone] Dmitry Bhatti MD [facility] HEMATOLOGY/[place] [address] Ellen Mcrae APRN [facility] [place] [address] 08/01/2024 1:30 PM EDT Infusion Hematology Oncology at [address] [phone] documented as of this encounter Visit Diagnoses Diagnosis Bilateral asymmetric sensorineural hearing loss documented in this encounter Care Teams Cook Manager Relationship Specialty Start Date End Date Jovon Sifuentes MD [address] [place] [address] PCP - General 09/30/10 09/10/21 documented as of this encounter
--- OUTSIDE RECORDS SUMMARY | 2024-05-18 11:27 | XMS_ITS | Encounter Summary ---
Author Organization Counts Include [facility] Address [facility] [place] [address] Care Team Providers Care Transfer Driver Name Role Phone Jovon Sifuentes MD Primary Care Provider [phone] Reason for Visit * Reason Comments Follow-up dysphagia Encounter Details Date Type Department Care Team (Late st Contact Info) Description 11/09/2019 10:20 AM EST Office [place] [address] Sriram Contreras MD [facility] [place] [address] Cancer of base of tongue; Sensorineural hearing loss (SNHL) of both ears [...] - Inhaled Oxygen Concentration - - Weight 131.1 kg (289 lb) 11/09/2019 10:11 AM EST Height 190.5 cm (6' 3) 11/09/2019 10:11 AM EST Body Mass Index 36.12 11/09/2019 10:11 AM EST documented in this encounter Progress Notes * Sriram Contreras MD - 11/09/2019 10:20 AM EST [facility] OTOLARYNGOLOGY - HEAD AND NECK TUMOR CLINIC FOLLOW UP NOTE Jose Bee is a 68 y.o. 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 New issues since last visit: Has had left sided chest and back pain for the last 3 weeks. Does not recall any precipitating event. Seems to hurt more when he takes a deep breath. Pain lessened when heat applied. Has been gettingbetter Swallowing is improving, needs liquid to help with spray drier operator foods. Denies choking events. No odynophagia No dyspnea No fevers, chills, night sweats or unintended weight loss. Feels his appetite is somewhat diminished. Feels cold all the time. Denies cervical adenopathy Has had new hearing aids for the last month and a half. Not sure if his hearing has improved, but his states that the TV does not need to be as loud as it was before. Wears ear protection when shooting, but not when using loud machinery. PROBLEM LIST Patient Active Problem List Diagnosis Code ??? Carcinoma of base of tongue C01 ??? Pulmonary embolism I26.99 ??? Benign prostatic hyperplasia N40.0 ??? Atrial fibrillation I48.91 ??? KORI on CPAP G47.33, Z99.89 ??? Adult BMI 30+ [id number] PAST MEDICAL HISTORY Past Medical History: Diagnosis [...] endocrine, hematologic or immunologic systems. PHYSICAL EXAMINATION Vitals: Height 190.5 cm (6' 3), weight 131.1 kg (289 lb). General: Well developed, no distress Head/face: Normocephalic, atraumatic Ears: Normal exam of the external ear, canal and tympanic membrane. Nose: Normal external exam. Normal exam of the septum and turbinates. Oral cavity: Normal exam of the lips, teeth/gums, floor of mouth, tongue. Normal oral mucosa. Normal palate. Oropharynx: Normal soft palate, tonsils, lateral pharyngeal wall, posterior pharynx. Neck: No adenopathy, no masses, normal thyroid, normal salivary gland exam. Trachea midline. Resp: Normal speech, no stridor, normal respirations. Skin: Normal skin survey of the head and neck. MSK: No trismus, normal neck range of motion Neuro: AxOx3; CN II-XII is grossly intact. Psych: Normal mood and affect. Responds appropriately to questions. PROCEDURES Procedure Flexible Fiberoptic Laryngoscopy Indication history of cancer of the base of tongue and vallecula Description Informed verbal consent obtained and time out performed. A flexible laryngoscope was used to evaluate bilateral nasal cavity, nasopharynx, oropharynx, hypopharynx and larynx. The examination was recorded on the Tele[employer] Unit and uploaded to the [employer]. Findings Nasal cavity normal mucosa of septum and right inferior turbinate Nasopharynx normal mucosa Oropharynx no lesions or masses present in base of tongue or vallecula Larynx normal vocal cord mobility, no lesions or masses present Hypopharynx normal mucosa, no lesions or masses present REVIEW OF IMAGES EXAMINATION: CT NECK SOFT TISSUE W CONTRAST (GENERIC) ?? CLINICAL HISTORY: tongue base cancer ? TECHNIQUE: CT neck performed after the intravenous administration of contrast. . ?? COMPARISON: CT neck of 08/08/2018 ?? FINDINGS: The architectural distortion of the intrinsic [...] expansile or destructive bone lesion is evident. ?? IMPRESSION No evidence of recurrent neoplasm. ? This study was interpreted and the final report dictated in [place]. ?? Thank you for letting us participate in the care of this patient. For questions regarding this report, please contact the number below. Electronically signed by: Saud Sloan [facility] ([phone]), at 11/09/2019 9:58 AM EXAMINATION: CT CHEST W CONTRAST ?? CLINICAL HISTORY: history of tongue cnacer s/p resection. pulmonary nodules, assess stability ?? TECHNIQUE: Chest CT with 110 ml of Omnipaque 350. COMPARISON: 08/08/2018. ?? FINDINGS: Pulmonary parenchyma: Small new opacity at the anterior inferior base of the right lower lobe (series 3, image 178) has a linear configuration consistent with mild atelectasis or scarring. Stable subcentimeter nodule at the minor fissure (series 3, image 115). Other sub-5 mm nodules are also stable. Mild bibasilar atelectases/scarring. ?? Airways: Central and segmental airways are patent. Pleura: No effusion. Lymph nodes: No abnormal enlargement lymph nodes within the chest. ?? Heart and vasculature: Stable findings of the heart. Diffuse three-vessel coronary artery atherosclerotic calcifications are seen again. Contrast refluxed deep into the IVC and hepatic veins; of doubtful significance considering the stable findings of the heart. ?? Limited upper abdomen: Cyst at the upper pole of the right kidney. Unchanged pelvocaliectasis or parapelvic cysts in the left kidney (stable dating back to 2017). Stable subcentimeter hypodensity in the right liver lobe consistent with a small cyst. Skeleton: Degenerative changes throughout the thoracic spine. Prominent kyphosis at the thoracolumbar junction. No aggressive osseous lesion. ?? IMPRESSION No suspicious pulmonary nodule. No enlarging adenopathy within the chest. CT of the neck is reported separately. ?? Thank you for letting us participate in the care of this patient. For questions regarding this report, please contact the number below. Electronically signed by: Alley Pham [facility] ([phone]), at 11/09/2019 10:50 AM ASSESSMENT/RECOMMENDATIONS Jose Bee is a 68-year-old male here for follow-up for history of base of tongue and vallecula cancer. Has had 3 weeks of chest/back pain, but is improving and seems to be more musculoskeletal. Otherwise doing well. No abnormalities found on physical exam, flexible laryngoscopy negative for new masses or lesions. Use hearing protection whenever he is exposed to loud noises. Follow-up with Dr. Contreras in 6 months. I appreciate the opportunity to be involved in Mr. Bee's care. Russ Connolly PA-C Pager: 202511/09/2019 [facility] Otolaryngology Attending Note Patient seen and examined with the Associate Provider. I have reviewed and agree with the history, physical, and assessment and plan. Pertinent Exam Findings/Procedure Performed/Imaging Reviewed History of tongue base carcinoma s/p TLM resection and neck dissection. Exam today demonstrates no evidence of recurrent disease with normal scope exam. He also has new hearing aids but is still exposed to significant loud noises. 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 2 - Hearing loss: Emphasized the importance of hearing protection when using loud machinery RTC 6 months documented in this encounter Plan of Treatment Upcoming Encounters Date Type Department Care Team (Late st Contact Info) Description 08/01/2024 1:00 PM EDT Office Visit Hematology/Oncology at [address] [phone] Dmitry Bhatti MD [facility] [place]ATOLOGY/[place] [address] Ellen Mcrae APRN [facility] [place] [place] [address] 08/01/2024 1:30 PM EDT Infusion Hematology Oncology at [address] [phone] documented as of this encounter Visit Diagnoses Diagnosis 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 Sensorineural hearing loss (SNHL) of both ears documented in this encounter Care Teams Transfer Driver Relationship Specialty Start Date End Date Jovon Sifuentes MD [address] [place] [address] PCP - General 09/30/10 09/10/21 documented as of this encounter
--- OUTSIDE RECORDS SUMMARY | 2024-05-18 11:27 | XMS_ITS | Encounter Summary ---
Author Organization [facility] [place] [address] Care Team Providers Care Crucible Furnace Tender Name Role Phone Jovon Sifuentes MD Primary Care Provider Encounter Details Date Type Department Care Team ([facility] Contact Info) Description 09/11/2019 Telephone [place] [phone] Nawaf Kendrick Social History Tobacco Use Types Packs/Day Years [...] 1:00 PM EDT Office Visit Hematology/Oncology at [address] [phone] Dmitry Bhatti MD [facility] DR HEMATOLOGY/[place] [address] Ellen Mcrae APRN [facility] [place] [address] 08/01/2024 1:30 PM EDT Infusion Hematology Oncology at [address] [phone] documented as of this encounter Visit Diagnoses Not on filedocumented in this encounter Care Teams Crucible Furnace Tender Relationship Specialty Start Date End Date Jovon Sifuentes MD [address] [place] [address] PCP - General 09/30/10 09/10/21 documented as of this encounter
--- OUTSIDE RECORDS SUMMARY | 2024-05-18 11:27 | XMS_ITS | Encounter Summary ---
Author Organization [facility] [place] [address] Care Team Providers Care Roller Leveler Operator Name Role Phone Paulino Finley MD Primary Care Provider Encounter Details Date Type Department Care Team (Latest Contact Info) Description 08/10/2023 9:00 AM EDT Clinical Support Hematology/Oncology at [address] [phone] Dmitry Bhatti MD [facility] DR [place]EMATOLOGY/[place] [address] Dina Schrader APRN [facility] [place] [address] Prostate cancer metastatic to multiple sites Social [...] Sign Reading Time Taken Comments Blood Pressure 112/64 08/10/2023 8:55 AM EDT Pulse 53 08/10/2023 8:55 AM EDT Temperature 36.2 ??C (97.1 ??F) 08/10/2023 8:55 AM ED T Respiratory Rate 18 08/10/2023 8:55 AM EDT Oxygen Saturation 100% 08/10/2023 8:55 AM EDT Inhaled Oxygen Concentration - - Weight 135.1 kg (297 lb 12.8 oz) 08/10/2023 8:55 AM EDT Height 186.6 cm (6' 1.47) 08/10/2023 8:55 AM ED T Body Mass Index 38.79 08/10/2023 8:55 AM EDT documented in this encounter Patient Instructions * Patient Instructions* Dina Schrader APRN - 08/10/2023 9:00 AM EDT He will return in 3 weeks with labs prior and for infusion documented in this encounter Progress Notes * Dina Schrader APRN - 08/10/2023 9:00 AM EDT Images from the original note were not included. 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 Pathology revealed prostatic adenocarcinoma Wadley 5+4. Staging CT abdomen and pelvis and bone scan demonstrated diffuse bony metastatic disease along with retroperitoneal and pelvic lymphadenopathy. He was started on degarelix on May 27 and was switched to Lupron 7.5 mg on July 01. Tolerates ADT reasonably well with mild hot flashes. Main complaint is fatigue. Denies any pain. Urination has been improving on ADT. Interval history 08/10/23 Jose is here today [...] apnea on CPAP, history of pulmonary embolismon Elirosanna, Past Medical History: Diagnosis Date Arthritis Atrial fibrillation BPH (benign prostatic hyperplasia) Cataract, right eye ED (erectile dysfunction) Hypothyroidism Pulmonary embolism Patient Active Problem List Diagnosis Atrial fibrillation March 2017: noted in ED in [facility]. Previously noted to be paroxysmal. 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 He is to Briana for 40 yrs. 4 children - All live in different states - One Kathleen Enjoys raising Beef Cattle and doing Civil War and Living History and shoot Black powder/Antique firearms. He enjoys builiding Firearms/Blacksmithing - [place]coal, [place], etc. Social Determinants of Health Financial Resource Strain: Not on file Food Insecurity: Not on file Transportation Needs: Not on file Physical Activity: Not on file Housing Stability: Not on file Family History: grandfather had throat cancer No family history on file. Allergies: Allergies Allergen Reactions Ibuprofen CIS - Nausea/Vomiting Clindamycin Other (See Comments) Memory issues. Medications: Your Medications Accurate as of August 10, 2023 9:14 AM. If you have any questions, ask [...] adenocarcinoma, involving 1 of 1 core. - Wadley score 4 + 5 = 9 (grade group 5), tumor extent 1 mm (15% of core). - Perineural invasion is identified. C. PROSTATE, RIGHT MID LATERAL, NEEDLE CORE BIOPSY: - Prostatic adenocarcinoma, involving 1 of 1 core. - Wadley score 5 + 4 = 9 (grade [...] adenocarcinoma, involving 1 of 1 core. - Wadley score 5 + 4 = 9 (grade [...] adenocarcinoma, involving 1 of 1 core. - Wadley score 4 + 3 = 7 (grade group 3), 70% Wadley pattern 4, tumor extent 6 mm (40% of core). - Cribriform Marko pattern 4 is present. I. PROSTATE, LEFT MID LATERAL, NEEDLE CORE BIOPSY: - Prostatic adenocarcinoma, involving 1 of 1 core. - Wadley score 3 + 5 = 8 (grade group 4), tumor extent 4 mm (30% of core). J. PROSTATE, LEFT MID MEDIAL, NEEDLE CORE BIOPSY: - Prostatic adenocarcinoma, involving 1 of 1 core. - Wadley score 4 + 5 = 9 (grade group 5), tumor extent 2 mm (15% of core). K. PROSTATE, LEFT APEX LATERAL, NEEDLE CORE BIOPSY: - Benign prostatic tissue. L. PROSTATE, LEFT APEX MEDIAL, NEEDLE CORE BIOPSY: - Prostatic adenocarcinoma, involving 1 of 1 core. - Marko score 5 + 4 = 9 (grade group 5), tumor extent 2 mm (20% of core). Labs: 07/29/23 WBC 5..18 H?H 15.3/45.5 Plts 168 Na 139 K+ 4.4 BUN/Cr 22/1.2 Glu 115 tbili 0.4 AST21 ALT 30Alk phos 372 PSA 17.2 Test 7.9 Imagin06/04/23 CT abdomen and pelvis: Impression: Enlarged [...] Food and Drug Administration approved darolutamide ([employer] tablets in combination with docetaxel for adult patients with metastatic hormone-sensitive prostate cancer (mHSPC). Efficacy was based on ARASENS ([id number]), a randomized, multicenter, double- blind, placebo-controlled clinical trial in 1306 patients with mHSPC. Patients were randomized to receive either darolutamide 600 mg orally twice daily plus docetaxel 75 mg/m2 intravenously administered every 3 weeks forup to 6 cycles or docetaxel plus placebo. All patients received a gonadotropin-releasing hormone analog concurrently or had a bilateral orchiectomy. The primary efficacy measure was overall survival (OS). Cufi-at-axow progression was an additional efficacy measure. Median OS was not reached (NR) (95% CI: NR, NR) in the darolutamide plus docetaxelarm and 48.9 months (95% CI: 44.4, NR) in docetaxel plus placebo arm (HR 0.68; 95% CI: 0.57, 0.80; p<0.0001). Treatment with darolutamide and docetaxel resulted in a statistically significant delay in pwzv-vi-gbmz progression (HR 0.79; 95% CI: 0.66, 0.95; [...] Dr. Contreras Plan: Continue Lupron next due today Start darolutamide 600 mg twice daily as soon as available Possibly tomorrow Next visit in 3-weeks with CBC, CMP, PSA, testosterone, for his second dose of docetaxel. He will receive the first dose today. He has been given scripts for his nausea medication. Chemotherapy Teaching. Antitumor Therapy Schedule. Docetaxel - every 3 weeks for at least 6 cycles Laboratory tests: You will have a complete blood count and complete metabolic panel done prior to each visit. Provider visits You will see a provider prior to each cycle of treatment Possible side effects include but are not limited to: Infusion reaction, decrease in blood counts - decreased white blood count increased risk of infection, decreased red blood count -anemia and decreased platelet count - increased risk of bleeding, hair thinning or loss, fatigued, peripheral neuropathy- numbness or tingling in the hands and/or feet, mouth sores, diarrhea, nausea and vomiting, nail changes muscle pain or cramps. Medications Prochlorperazine 10 mg every 6 hours for nausea as needed Ondansetron 8 mg every 8 hours for nausea as needed The patient was given printed information as well. He was given an opportunity to ask questions along with his . All questions were asked and answered to the best of my ability. The majority of this visit was spent in counseling and discussion re: the current treatment plan. 50 minutes of the 60 minutes were spent in this discussion. documented in this encounter Plan of Treatment Upcoming Encounters Date Type Department Care Team (Late st Contact Info) Description 08/01/2024 1:00 PM EDT Office Visit Hematology/Oncology at [address] [phone] Dmitry Bhatti MD [facility] DR HEMATOLOGY/[place] [address] Ellen Mcrae APRN [facility] [place] [address] 08/01/2024 1:30 PM EDT Infusion Hematology Oncology at [address] [phone] documented as of this encounter Visit Diagnoses Diagnosis Prostate cancer metastatic to multiple sites Malignant neoplasm of prostate documented in this encounter Care Teams Roller Leveler Operator Relationship Specialty Start Date End Date Paulino Finley MD [address] [place] [address] PCP - General Emergency Medicine 09/11/21 documented as of this encounter
--- OUTSIDE RECORDS SUMMARY | 2024-05-18 11:27 | XMS_ITS | Encounter Summary ---
[place] [address] Care Team Providers Care Transportation Maintenance Worker Name Role Phone Paulino Finley MD Primary Care Provider [phone] Encounter Details Date Type Department Care Team (Late Contact Info) Description 08/02/2023 Telephone [place] [phone] Calista Ridley Social History Tobacco Use Types Packs/Day Years [...] encounter Miscellaneous Notes * Telephone Encounter - Calista Ridley - 08/02/2023 3:11 PM EDT Spoke with pt regarding 09/06 JYOTHI yip. Pt okay with seeing DM for coordinated appts. documented in this encounter Plan of Treatment Upcoming Encounters Date Type Department Care Team (Late st Contact Info) Description 08/01/2024 1:00 PM EDT Office Visit Hematology/Oncology at [address] [phone] Dmitry Bhatti MD [facility] DR HEMATOLOGY/[place] [address] Ellen Mcrae APRN [facility] [place] [address] 08/01/2024 1:30 PM EDT Infusion Hematology Oncology at [address] [phone] documented as of this encounter Visit Diagnoses Not on filedocumented in this encounter Care Teams Transportation Maintenance Worker Relationship Specialty Start Date End Date Paulino Finley MD [address] [place] [address] PCP - General Emergency Medicine 09/11/21 documented as of this encounter
--- OUTSIDE RECORDS SUMMARY | 2024-05-18 11:27 | XMS_ITS | Encounter Summary ---
[place] [address] Care Team Providers Care Bit Tapper Name Role Phone Paulino Finley MD Primary Care Provider [phone] Encounter Details Date Type Department Care Team (Latest Contact Info) Description 07/08/2023 1:58 PM EDT - 07/08/2023 11:59 PM EDT Hospital Encounter Hematology [place] [address] Malignant neoplasm of prostate metastatic to bone Discharge Disposition: Home Social History Tobacco Use [...] Sig Dispensed Refills Start Date End Date cholecalciferol (Vitamin D3) 1,000 unit tablet Take [...] hr Take 0.4 mg by mouth daily. UNABLE TO FIND every morning. Osteo Biflex 10/12/2023 melatonin 5 mg Tablet Take 10 mg by mouth nightly. 10/12/2023 documented as of this encounter Plan of Treatment Upcoming Encounters Date Type Department Care Team (Late st Contact Info) Description 08/01/2024 1:00 PM EDT Office Visit Hematology/Oncology at [address] [phone] Dmitry Bhatti MD [facility] DR HEMATOLOGY/[place] [address] Ellen Mcrae APRN [facility] [place] [address] 08/01/2024 1:30 PM EDT Infusion Hematology Oncology at [address] [phone] documented as of this encounter Procedures Procedure Name Priority Date/Time Associated Diagnosis Comments HEMOGRAM Routine 07/08/2023 2:07 PM EDT Malignant neoplasm of prostate metastatic to bone DIFFERENTIAL, AUTOMATED Routine 07/08/2023 2:07 PM EDT Malignant neoplasm of prostate metastatic to bone HC CBC,PLT & AUTO DIFF Routine 3 2:07 PM EDT Malignant neoplasm of prostate metastatic to bone HC TESTOSTERONE, SERUM Routine 3 2:07 PM EDT Malignant neoplasm of prostate metastatic to bone HC PROSTATE SPECIFIC ANTIGEN Routine 07/08/2023 2:07 PM EDT Malignant neoplasm of prostate metastatic to bone COMPREHENSIVE METABOLIC PANEL (NON-FASTING) Routine 07/08/2023 2:07 PM EDT Malignant neoplasm of prostate metastatic to bone documented in this encounter Results * Differential, Automated (07/08/2023 2:07 PM EDT) Neutrophils % 48.6 % [facility] Neutr Abs (ANC) 2.59 1.70 - 6.10 x10(3)/[facility] Lymphocytes % 36.2 % [facility] Lymphocytes Abs 1.9 0.9 - 3.2 x10(3)/[facility] Monocytes % 10.1 % [facility] Monocyte Abs 0.5 0.3 - 0.9 x10(3)/[facility] Eosinophils % 3.0 % [facility] Eosinophils Abs 0.2 0.0 - 0.4 x10(3)/[facility] Basophils % 1.9 % [facility] Basophils Abs 0.1 0.0 - 0.1 x10(3)/[facility] Immature Gran % 0.20 % [facility] Comment: Immature granulocytes(IG's)percentage and absolute count will include metamyelocytes, myelocytes, and promyelocytes. Blood smears from CBCs yielding IG's will be scanned manually for concordance. If this scan disagrees with the automated IG or if promyelocytes are noted, a manual differential will be performed. Patti Gran Abs 0.01 0.00 - 0.04 x10(3)/[facility] Blood 07/08/2023 2:07 PM EDT 07/08/2023 2:10 PM EDT Narrative Resulting Agency Comment Spec In Lab Dmitry Bhatti MD HEMATOLOGY ORDERABLE S [facility] [place] [address] * (ABNORMAL) Hemogram (07/08/2023 2:07 PM EDT) Pathologist [facility] WBC 5.3 4.0 - 9.5 x10(3)/[facility] RBC 4.85 4.58 - 5.54 x10(6)/[facility] Hemoglobin 14.8 13.7 - 16.5 g/dL [facility] Hematocrit 44.9 40.5 - 48.5 % [facility] MCV 92.6 82.9 - 93.1 [facility] MCH 30.5 27.5 - 32.1 pg [facility] MCHC 33.0 32.0 - 35.7 g/dL [facility] Platelets 161 145 - 357 x10(3)/[facility] RDWSD 47.9(H) 36.0 - 45.0 [facility] RDWCV 14.0(H) 11.4 - 13.8 % [facility] MPV 9.8 7.6 - 12.9 [facility] nRBC % Auto 0.0 % [facility] nRBC Abs Auto 0.000 0.000 - 0.000 x10(3)/[facility] Blood 07/08/2023 2:07 PM EDT 07/08/2023 2:10 PM EDT Narrative Resulting Agency Comment Spec In Lab Dmitry Bhatti MD HEMATOLOGY ORDERABLE S [facility] [place] [address] * (ABNORMAL) PSA (Ultrasensitive) (07/08/2023 2:07 PM EDT) Pathologist [facility] PSA Total (Ultrasensitive) 18.80(H) 0.00 - 4.00 ng/mL [facility] Comment: PLEASE NOTE: The above reference interval is intended for healthy males with an intact prostate. Values within this reference interval may indicate recurrence in men who have undergone radical prostatectomy. This result was generated using a Kenneyd Arabella immunoassay. ??Results obtained from other methods or manufacturers cannot be used interchangeably with this method. Blood 07/08/2023 2:07 PM EDT 07/08/2023 2:10 PM EDT Narrative Resulting Agency Comment Spec In Lab Dmitry Bhatti MD CHEMISTRY ORDERABLES [facility] [place] [address] * (ABNORMAL) Comprehensive metabolic panel (non-fasting) (07/08/2023 2:07 PM EDT) Glucose Lvl 73 65 - 199 mg/dL [facility] Comment:Diabetes: >=200 mg/d L plus symptoms BUN 16 10 - 20 mg/dL [facility] Creatinine 1.12 0.80 - 1.50 mg/dL [facility] Sodium 143 135 - 145 mmol/L [facility] Potassium 4.4 3.5 - 5.0 mmol/L [facility] Comment: Please note: ??Patients with WBC >100,000 may have falsely elevated Potassium levels. ??For accurate Potassium quantification in these patients send serum separator tube (gold top) for subsequent determinations. ??Contact the Clinical Chemistry Laboratory if there are any questions. Chloride 109(H) 98 - 107 mmol/L [facility] CO2 24 22 - 31 mmol/L [facility] Anion Gap 10 5 - 15 mmol/L [facility] Calcium 9.4 8.5 - 10.5 mg/dL [facility] Total Protein 7.2 6.1 - 8.0 g/dL [facility] Albumin 4.2 3.2 - 5.2 g/dL [facility] AST 17 0 - 39 unit/L [facility] ALT 17 0 - 55 unit/L [facility] Alk Phos 407(H) 40 - 130 unit/L [facility] Total Bilirubin 0.2 0.2 - 1.3 mg/dL [facility] Estimated GFR 69 >=60 mL/min/1. 73 m?? [facility] Comment: This patient's estimated GFR [...] In Lab Dmitry Bhatti MD CHEMISTRY ORDERABLES Performing Organization Address City/State/[facility] Co de Phone Number [facility] [address] * (ABNORMAL) Testosterone, total (07/08/2023 2:07 PM EDT) [facility] Testo Total <0.12(L) 1.93 - 7.40 ng/mL [facility] Comment: Pediatric Reference Ranges: ? [...] Stated reference ranges derived from review of Kennedy Arabella Testosterone II 09/2022, v2.0 Blood 07/08/2023 2:07 PM EDT 07/08/2023 2:10 PM EDT Narrative Resulting Agency Comment Spec In Lab Dmitry Bhatti MD CHEMISTRY ORDERABLES Performing Organization Address City/State/[facility] Co de Phone Number [facility] [address] documented in this encounter Visit Diagnoses Diagnosis Malignant neoplasm of prostate metastatic to bone Malignant neoplasm of prostate documented in this encounter Care Teams Bit Tapper Relationship Specialty Start Date End Date Paulino Finley MD [address] [place] [address] PCP - General Emergency Medicine 09/11/21 documented as of this encounter
--- OUTSIDE RECORDS SUMMARY | 2024-05-18 11:27 | XMS_ITS | Encounter Summary ---
[place] [address] Care Team Providers Care Relief Driller Name Role Phone Paulino Finley MD Primary Care Provider [phone] Reason for Visit * Reason Onset Date Comments Prior Authorization 07/14/2023 Encounter Details Date Type Department Care Team (Late st Contact Info) Description 07/14/2023 Telephone [place]ematology [place] [phone] Belle Walls Prior Authorization Social History Tobacco Use Types Packs/Day Years [...] * Telephone Encounter - Belle Harmon - 07/14/2023 2:11 PM EDT Procedure Prior Authorization Procedure/Cpt: 68259 Ct chest Rationale: C61, C79.51 Health Plan: BS Vt Authorizing Vendor: [employer] Service Order/ Authorization #: Effective Date: 07/14/2023 - 09/11/2023 Status: Approved Rendering Facility: [address] [place] [address] Phone: TIN: [phone] documented in this encounter Plan of Treatment Upcoming Encounters Date Type Department Care Team (Late st Contact Info) Description 08/01/2024 1:00 PM EDT Office Visit Hematology/Oncology at [address] [phone] Dmitry Bhatti MD [facility] DR HEMATOLOGY/[place] [address] Ellen Mcrae APRN [facility] [place] [address] 08/01/2024 1:30 PM EDT Infusion Hematology Oncology at [address] [phone] documented as of this encounter Visit Diagnoses Not on filedocumented in this encounter Care Teams Relief Driller Relationship Specialty Start Date End Date Paulino Finley MD [address] [place] [address] PCP - General Emergency Medicine 09/11/21 documented as of this encounter
--- OUTSIDE RECORDS SUMMARY | 2024-05-18 11:27 | XMS_ITS | Encounter Summary ---
[place] [address] Care Team Providers Care Mds Manager Name Role Phone Paulino Finley MD Primary Care Provider [phone] Reason for Visit * Reason Comments Prior Authorization Nubeqa Encounter Details Date Type Department Care Team (Late st Contact Info) Description 07/08/2023 Specialty [place] [address] Efrem Dos Santos, [facility] Social History Tobacco Use Types Packs/Day [...] as of this encounter Progress Notes * Efrem Dos Santos - 07/08/2023 3:52 PM EDT [facility], Benefits Investigation Patient: Jose Bee Patient : 1950 Patient Address: [address] [place] [address] (home) Medication Name: NUBEQA 300 MG TABLET Medication ID: Patient Location: [facility] HEM ONC 3K Patient Location Comment: Medication Strength Frequency Requested: Take 2 tablets by mouth twice a day Qty/Day Supply: 120/30 New Start: New to Therapy Diagnosis & ICD-10 Code: Prostate Cancer C61 Subscriber Insurance: [id number] Subscriber Insurance Comment: Phone: Fax: Physician: DMITRY STEVEN Physician Comment : PA Status: PA Not Needed Insurance mandated Pharmacy: Fillable at [facility]: Yes Insurance requirements/notes: None Copay: $597.40 Copay assistance: Other (Enter Comment) Copay assistance comment: PT has a high copay, would you like me to refer the PT to [facility] for financial assistance? Pharmacy staff will be reaching out to the patient to inform them of their medication's [facility]. If applicable, a pharmacist will speak with the patient to offer our specialty pharmacy services and to arrange delivery of their medication. Efrem Dos Santos 07/08/23 3:54 PM documented in this encounter Plan of Treatment Upcoming Encounters Date Type Department Care Team (Late st Contact Info) Description 08/01/2024 1:00 PM EDT Office Visit Hematology/Oncology at [address] [phone] Dmitry Steven MD [facility] DR HEMATOLOGY/[place] [address] Ellen Mcrae APRN [facility] [place] [address] 08/01/2024 1:30 PM EDT Infusion Hematology Oncology at [address] [phone] documented as of this encounter Visit Diagnoses Not on filedocumented in this encounter Care Teams Mds Manager Relationship Specialty Start Date End Date Paulino Finley MD [address] [place] [address] PCP - General Emergency Medicine 09/11/21 documented as of this encounter
--- OUTSIDE RECORDS SUMMARY | 2024-05-18 11:27 | XMS_ITS | Encounter Summary ---
[place] [address] Care Team Providers Care Media Center Assistant Name Role Phone Jovon Sifuentes MD Primary Care Provider [phone] Reason for Visit * Reason Onset Date Comments Questions 05/20/2020 pre procedure ho ld of Eliquis Encounter Details Date Type Department Care Team (Late st Contact Info) Description 05/20/2020 Telephone Cardiology at [address] [phone] Flor Alba, RN Questions (pre procedure hold of Eliquis) Social History Tobacco Use Types Packs/Day Years [...] encounter Miscellaneous Notes * Telephone Encounter - Flor Alba RN - 05/20/2020 3:39 PM EDT Call received on the nurse triage line from staff at the [facility] (uri [phone]) requesting hold instructions for the Eliquis. 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 Chart reviewed and noted that the pt has not been seen in the cardiology clinic since 2016, the last time the Eliquis was refilled by Dr Lr was hin October of 2017. They are to contact his current prescriber for directions about the hold on the Eliquis. documented in this encounter Plan of Treatment Upcoming Encounters Date Type Department Care Team (Late st Contact Info) Description 08/01/2024 1:00 PM EDT Office Visit Hematology/Oncology at [address] [phone] Dmitry Bhatti MD [facility] DR HEMATOLOGY/[place] [address] Ellen Mcrae APRN [facility] [place] [address] 08/01/2024 1:30 PM EDT Infusion Hematology Oncology at [address] [phone] documented as of this encounter Visit Diagnoses Not on filedocumented in this encounter Care Teams Media Center Assistant Relationship Specialty Start Date End Date Jovon Sifuentes MD [address] [place] [address] PCP - General 09/30/10 09/10/21 documented as of this encounter
--- OUTSIDE RECORDS SUMMARY | 2024-05-18 11:27 | XMS_ITS | Encounter Summary ---
Author Organization [facility] [place] [address] Care Team Providers Care Manufacturing Manager Name Role Phone Paulino Finley MD Primary Care Provider Encounter Details Date Type Department Care Team (Latest Contact Info) Description 07/08/2023 Travel Social History Tobacco Use Types Packs/Day [...] PM EDT Office Visit Hematology/Oncology at [address] [phone] Dmitry Bhatti MD [facility] DR HEMATOLOGY/[place] [address] Ellen Mcrae APRN [facility] [place] [address] 08/01/2024 1:30 PM EDT Infusion Hematology Oncology at [address] [phone] documented as of this encounter Visit Diagnoses Not on filedocumented in this encounter Care Teams Manufacturing Manager Relationship Specialty Start Date End Date Paulino Finley MD [address] [place] [address] PCP - General Emergency Medicine 09/11/21 documented as of this encounter
--- OUTSIDE RECORDS SUMMARY | 2024-05-18 11:27 | XMS_ITS | Encounter Summary ---
[place] [address] Care Team Providers Care Desktop Support Associate Name Role Phone Paulino Finley MD Primary Care Provider [phone] Reason for Visit * Reason Comments Specialty Pharmacy Review Nubeqa 300mg t ablet Encounter Details Date Type Department Care Team (Late st Contact Info) Description 07/08/2023 Specialty [place] [address] Jeannie Villatoro, [facility] Social History Tobacco Use Types Packs/Day [...] encounter Progress Notes * Jeannie Villatoro - 07/08/2023 11:59 PM EDT The [facility] has completed a benefits investigation for Jose Bee to reviewtheir eligibility to fill at [facility]. Per patient's medication list they are prescribed Nubeqa 300mg tablet and the medication is able to be filled at the [facility], but the medication cost may not be financially viable. The patient is eligible to fill the medication through [facility] with a high copay. No PA required. Due to the high copay, the patient has been referred to [facility] for global marketing specialist assistance. documented in this encounter Plan of Treatment Upcoming Encounters Date Type Department Care Team (Late st Contact Info) Description 08/01/2024 1:00 PM EDT Office Visit Hematology/Oncology at [address] [phone] Dmitry Bhatti MD [facility] DR HEMATOLOGY/[place] [address] Ellen Mcrae APRN [facility] [place] [place] [address] 08/01/2024 1:30 PM EDT Infusion Hematology Oncology at [address] [phone] documented as of this encounter Visit Diagnoses Not on filedocumented in this encounter Care Teams Desktop Support Associate Relationship Specialty Start Date End Date Paulino Finley MD [address] [place] [address] PCP - General Emergency Medicine 09/11/21 documented as of this encounter
--- OUTSIDE RECORDS SUMMARY | 2024-05-18 11:27 | XMS_ITS | Encounter Summary ---
[place] [address] Care Team Providers Care Printed Circuit Boards Solder Leveler Name Role Phone Jovon Sifuentes MD Primary Care Provider Encounter Details Date Type Department Care Team (Latest Contact Info) Description 12/05/2020 9:30 AM EST Office Visit Audiology at [address] [phone] Valerie Toscano, [facility] [place] [address] Sensorineural hearing loss, asymmetrical Social History Tobacco [...] Progress Notes * Valerie Toscano, MS - 12/05/2020 9:30 AM EST 12/05/2020 - Audiology Jose Bee was seen today for a hearing aid check-up. His hearing aids are used for management of his asymmetric sensorineural hearing loss. An audiologic evaluation was scheduled prior to this visit however, he declined to have the test completed. He has not been aware of any changes to his hearing and denied new otologic concerns. Summary of Visit: ?? An initial inspection of the aids noted them to not be well maintained. The domes were badly worn. Excessive debris was noted in the receivers and the oyster floater wires were distorted. ?? Both instruments were cleaned, Receivers and domes were replaced. A listening check following these measures noted the instruments to be functional. ?? Spare wax traps and domes were dispensed. ?? The care and maintenance of the aids was reviewed and demonstrated. ?? The proper method of removing the aids from the ears was also reviewed to reduce the likelihood of distorting and/or damaging the oyster floater wires. ?? Verification of aided response was completed using SREM and d-jossue measures. Results were consistent with previous findings. Adjustments were not made. ?? An audiologic evaluation and hearing aid check-up are advised in one year. He knows to contact the clinic sooner for any interim concerns. Sabina Toscano MS, [facility] Clinical Coordinator, [place] [address] (fax) AMPLIFICATION EQUIPMENT LIST: HEARING AID RIGHT LEFT Make/Model/Style Phonak Audeo M30 R Phonak Audeo M30 R Casing Color White White Serial Number [id number] Battery Size Rechargeable Rechargeable Invoice number/date [id number] 08/24/19 [id number] 08/24/19 Other Comments PROGRAM/SETTINGS Fitting Algorithm DSL [...] HELENA / Dome specifics Size 03 M oyster floater small vented dome Size 03 M oyster floater small vented dome Impression Date Invoice number/date Other Comments ACCESSORIES Make/Model (color) Serial Number Warranty date Invoice number/date Settings Other Comments documented in this encounter Plan of Treatment Upcoming Encounters Date Type Department Care Team (Late st Contact Info) Description 08/01/2024 1:00 PM EDT Office Visit Hematology/Oncology at [address] [phone] Dmitry Bhatti MD [facility] DR HEMATOLOGY/[place] [address] Ellen Mcrae APRN [facility] [place] [address] 08/01/2024 1:30 PM EDT Infusion Hematology Oncology at [address] [phone] documented as of this encounter Visit Diagnoses Diagnosis Sensorineural hearing loss, asymmetrical documented in this encounter Care Teams Printed Circuit Boards Solder Leveler Relationship Specialty Start Date End Date Jovon Sifuentes MD [address] [place] [address] PCP - General 09/30/10 09/10/21 documented as of this encounter
--- OUTSIDE RECORDS SUMMARY | 2024-05-18 11:27 | XMS_ITS | Encounter Summary ---
Author Organization [facility] [place] [address] Care Team Providers Care Transport Tank Technician Name Role Phone Paulino Finley MD Primary Care Provider [phone] Encounter Details Date Type Department Care Team (Late st Contact Info) Description 08/04/2023 Notes [place] [address] Casi Dong Social History Tobacco Use Types [...] encounter Progress Notes * Casi Dong - 08/04/2023 3:46 PM EDT The patient has been approved to receive his Nubeqa at no cost through [employer] until 11/07/2023. * Casi Dong - 08/04/2023 3:46 PM EDT 08/05/2023- PROGRAM CALLED BACK- patient is NOT yet approved. The program security systems sales representative dhara on08/04/2023. They DO NOT have a determination at this time. documented in this encounter Plan of Treatment Upcoming Encounters Date Type Department Care Team (Late st Contact Info) Description 08/01/2024 1:00 PM EDT Office Visit Hematology/Oncology at [address] [phone] Dmitry Bhatti MD [facility] DR HEMATOLOGY/[place] [address] Ellen Mcrae APRN [facility] DR [place]ICAL [place] [address] 08/01/2024 1:30 PM EDT Infusion Hematology Oncology at [address] [phone] documented as of this encounter Visit Diagnoses Not on filedocumented in this encounter Care Teams Transport Tank Technician Relationship Specialty Start Date End Date Paulino Finley MD [address] [place] [address] PCP - General Emergency Medicine 09/11/21 documented as of this encounter
--- OUTSIDE RECORDS SUMMARY | 2024-05-18 11:28 | XMS_ITS | Encounter Summary ---
[place] [address] Care Team Providers Care Extrusion Die Repairer Name Role Phone Jovon Sifuentes MD Primary Care Provider Encounter Details Date Type Department Care Team (Late Contact Info) Description 07/05/2018 Telephone [place] [phone] [place] Lambert Social History Tobacco Use Types Packs/Day Years [...] encounter Miscellaneous Notes * Telephone Encounter - [place] Lambert - 07/05/2018 4:47 PM EDT W: [phone] No documented in this encounter Plan of Treatment Upcoming Encounters Date Type Department Care Team (Late Contact Info) Description 08/01/2024 1:00 PM EDT Office Visit Hematology/Oncology at [address] [phone] Dmitry Bhatti MD [facility] DR HEMATOLOGY/[place] [address] Ellen Mcrae APRN [facility] [place] [address] 08/01/2024 1:30 PM EDT Infusion Hematology Oncology at [address] [phone] documented as of this encounter Visit Diagnoses Not on filedocumented in this encounter Care Teams Extrusion Die Repairer Relationship Specialty Start Date End Date Jovon Sifuentes MD [address] [place] [address] PCP - General 09/30/10 09/10/21 documented as of this encounter
--- OUTSIDE RECORDS SUMMARY | 2024-05-18 11:28 | XMS_ITS | Encounter Summary ---
[place] [address] Care Team Providers Care Scrap Shear Operator Name Role Phone Jovon Sifuentes MD Primary Care Provider Reason for Referral * Diagnostic Test (Routine) - Closed Specialty Diagnoses / Procedures Referred By Huma valladares Referred To Contact Radiology Diagnoses Cancer of base of tongue Procedures MRI Soft Tissue Neck wwo Contrast MRI Soft Tissue Neck w Contrast Sriram Contreras MD [facility] [place] [address] [place] [address] Referral ID Status Reason Start Date Expiration Date V isits Requested Visits Authorized [id number] Closed Specialty Service Requested 11/05/2017 01/03/2018 1 1 Reason for Visit * Reason Comments Follow-up 6 WK FU. Cancer of b ase of tongue right. Mass Patient states that he has 2 lumps on his abdomen from the Lovenox shots. Encounter Details Date Type Department Care Team (Late st Contact Info) Description 09/16/2017 1:00 PM EST Office [place] [address] Sriram Contreras MD [facility] [place] [address] Cancer of base of tongue Social History [...] - Inhaled Oxygen Concentration - - Weight 126.1 kg (278 lb) 09/16/2017 1:00 PM EST Height 190.5 cm (6' 3) 09/16/2017 1:00 PM EST Body Mass Index 34.75 09/16/2017 1:00 PM EST documented in this encounter Progress Notes * Sriram Contreras MD - 09/16/2017 1:00 PM EST [facility] OTOLARYNGOLOGY HEAD AND NECK TUMOR CLINIC FOLLOW UP NOTE Jose Bee is a 66 y.o. male followed for: Primary: Right base of tongue and vallecula Stage: T2N0M0 P16 positive Treatment: TLM and open resection with neck dissection 1-12 July 2017 New issues since last visit: Swallowing continues to improve. Still has to be careful but no significant restrictions in his swallowing. No pain, adenopathy, voice change, otalgia. Would like to transition from Lovenox to Eliquis. PROBLEM LIST Patient Active Problem List Diagnosis Code ??? Carcinoma of base of tongue C01 ??? Pulmonary embolism I26.99 ??? Benign prostatic hyperplasia N40.0 ??? Atrial fibrillation I48.91 ??? KORI on CPAP G47.33, Z99.89 ??? Adult BMI 30+ [id number] ??? Head and neck cancer C76.0 ??? Acute respiratory failure J96.00 PAST MEDICAL HISTORY Past Medical History: Diagnosis Date ??? Arthritis ??? Atrial fibrillation ??? BPH (benign prostatic hyperplasia) ??? Cataract, right eye ??? ED (erectile dysfunction) ??? Hypothyroidism ??? Pulmonary embolism SOCIAL HISTORY Social History Substance Use Topics ??? Smoking status: Former Smoker Packs/day: 1.00 Years: 27.00 Types: Cigarettes, Pipe Start date: 1969 Quit date: 1995 ??? Smokeless tobacco: Never Used Comment: quit cigarettes in 1995 - but smoked occasional pipe ??? Alcohol use Yes Comment: 1-2 drinks a week - liquor MEDICATIONS Current Outpatient Prescriptions on File Prior to Visit Medication Sig Dispense Refill ??? acetaminophen (TYLENOL) 325 mg Tablet Take 2 tablets by mouth every 4 hours. 30 tablet 1 ??? tamsulosin (FLOMAX) 0.4 mg Capsule, Sust. Release 24 hr Take 0.4 mg by mouth daily. ??? bisacodyl (DULCOLAX) [address] 1 suppository rectally daily as needed (if no BM in 48 hours or per patient's routine). (Patient not taking: Reported on 08/05/2017) 60 suppository 3 ??? enoxaparin (LOVENOX) 100 mg/mL Syringe Inject 1 mL subcutaneously 2 times daily. (Patient not taking: Reported on 09/16/2017) ??? polyethylene glycol (MIRALAX) 17 gram Powder in Packet Take 17 g by mouth daily as needed. (Patient not taking: Reported on 08/05/2017) 14 each 0 ??? chlorhexidine (PERIDEX) 0.12 % Mouthwash Take 15 mLs by mouth 2 times daily. (Patient not taking: Reported on 09/16/2017) 120 mL 0 ??? melatonin 5 mg Tablet Take by mouth nightly as needed. No current facility-administered medications on file prior to visit. ALLERGIES Allergies Allergen Reactions ??? Ibuprofen CIS - Nausea/Vomiting ??? Clindamycin Other (See Comments) Memory issues. ROS Pertinent positive findings discussed above. No other findings on review of constitutional visual, cardiovascular, respiratory, gastrointestinal, genitourinary, musculoskeletal, dermatologic, neurological, psychiatric, endocrine, hematologic or immunologic systems. PHYSICAL EXAMINATION Wt Readings from Last 3 Encounters: 09/16/17 (!) 126.1 kg (278 lb) 08/30/17 (!) 132.6 kg (292 lb 4.8 oz) 08/05/17 (!) 129.3 kg (285 lb) General: Well developed, no distress Head/face: [...] the [employer] and uploaded to the [employer]. Findings Nasal cavity Normal Nasopharynx normal Oropharynx Tongue base well healed Larynx S/p epiglottectomy with good reconstruction of edith-epiglottis. Normal vocal cords. Hypopharynx normal REVIEW OF IMAGES none ASSESSMENT/RECOMMENDATIONS No evidence of recurrence. Functionally doing quite well. Will arrange follow up in 4-6 weeks, PET/CT same day. I appreciate the opportunity to be involved in Mr. Bee's care. SRIRAM CONTRERAS MD 09/16/2017 documented in this encounter Plan of Treatment Upcoming Encounters Date Type Department Care Team (Late st Contact Info) Description 08/01/2024 1:00 PM EDT Office Visit Hematology/Oncology at [address] [phone] Dmitry Bhatti MD [facility] HEMATOLOGY/[place] [address] Ellen Mcrae APRN [facility] [place] [address] 08/01/2024 1:30 PM EDT Infusion Hematology Oncology at [address] [phone] documented as of this encounter Results * MRI Soft Tissue Neck wwo Contrast (11/11/2017 2:24 PM EST) Anatomical Region Laterality Modality Neck Magnetic Resonan ce Impressions 11/11/2017 3:34 PM EST 1. ??No evidence of recurrent or residual tumor at the site of primary lesion. 2. ??. Asymmetric appearance of the oropharynx and tongue base with more prominent mucosal thickening on the left which may be related to treatment changes. No distinct mass identified. 3. ??Single right cervical jacqueline station 2 lymph node, concerning for metastatic disease, unchanged in size compared to CT dated 07/13/2017 I have personally reviewed the image(s) and the residents interpretation and agree with the findings, Jac Comer MD at 11/11/2017 3:34 PM Narrative 11/11/2017 3:34 PM EST EXAMINATION: MRI SOFT TISSUE NECK WWO CONTRAST CLINICAL HISTORY: tongue base cancer s/p resection, assess for recurrence TECHNIQUE: MRI soft tissue neck before and after the IV administration of 26 mL Dotarem. COMPARISON: MRI 04/11/2008, PET CT 06/17/2017, CT neck 07/13/2017 FINDINGS: There is irregularity of the base of the tongue as result of postsurgical change. There is asymmetric soft tissue and enhancement seen along the left base of tongue (series 4 and 9, image 21). Asymmetric enhancing soft tissue thickening along the left supraglottic pharyngeal wall at the level of the uvula measuring 1.7 x 9 mm. There is enhancement of the bilateral pterygoid muscles. There is a single lymph node measuring 13 mm x 9 mm in the right cervical jacqueline II station. No other lymphadenopathy. The glandular tissue appears normal. The vocal cords appear symmetric. No bone marrow signal abnormality. Multilevel degenerative changes are present throughout the cervical spine. The visualized brain is normal. Paranasal sinuses and mastoid air cells are clear. Procedure Note Jac Evans MD - 11/11/2017 EXAMINATION: MRI SOFT TISSUE NECK WWO CONTRAST CLINICAL HISTORY: tongue base cancer s/p resection, assess forrecurrence TECHNIQUE: MRI soft tissue neck before and after the IV administration of 26 mLDotarem. COMPARISON: MRI 04/11/2008, PET CT 06/17/2017, CT neck 07/13/2017 FINDINGS: There is irregularity of the base of the tongue as result ofpostsurgical change. There is asymmetric soft tissue and enhancement seen along theleft base of tongue (series 4 and 9, image 21). Asymmetric enhancing soft tissue thickening along the left supraglottic pharyngeal wall at the level of theuvula measuring 1.7 x 9 mm. There is enhancement of the bilateral pterygoid muscles. There is a single lymph node measuring 13 mm x 9 mm in the right cervicalnodal II station. No other lymphadenopathy. The glandular tissue appears normal.The vocal cords appear symmetric. No bone marrow signal abnormality. Multilevel degenerative changes arepresent throughout the cervical spine. The visualized brain is normal. Paranasalsinuses and mastoid air cells are clear. IMPRESSION 1. No evidence of recurrent or residual tumor at the site of primarylesion. 2. . Asymmetric appearance of the oropharynx and tongue base with more prominent mucosal thickening on the left which may be related totreatment changes. No distinct mass identified. 3. Single right cervical jacqueline station 2 lymph node, concerning formetastatic disease, unchanged in size compared to CT dated 07/13/2017 I have personally reviewed the image(s) and the residents interpretationand agree with the findings, Jac Coemr MD at 11/11/2017 3:34 PM 3:34 PM Sriram Contreras MD IMG MRI ORDERABLES documented in this encounter Visit Diagnoses Diagnosis 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 documented in this encounter Care Teams Scrap Shear Operator Relationship Specialty Start Date End Date Jovon Sifuentes MD [address] [place] [address] PCP - General 09/30/10 09/10/21 documented as of this encounter
--- OUTSIDE RECORDS SUMMARY | 2024-05-18 11:28 | XMS_ITS | Encounter Summary ---
Author Organization [facility] [place] [address] Care Team Providers Care Flour Inspector Name Role Phone Jovon Sifuentes MD Primary Care Provider Encounter Details Date Type Department Care Team (Latest Contact Info) Description 08/03/2017 Multidisciplinary Ca re Committee [place] [address] Zafar Madera MD [facility] [place] [address] Social History Tobacco Use Types Packs/Day Years [...] as of this encounter Progress Notes * Edna Kelly - 08/03/2017 10:20 AM EDT Head & Neck - Tumor Board Note Date Presented: 08/05/17 Presenting Physician: Kristin Contreras Diagnosis/Tumor Site: SCCa R Tongue Base Is this Metastatic Disease: No Synopsis of History/HPI: 66 yo male with 27 pack year history (currently nonsmoker) and weekly ETOH(prior history of heavy alcohol use). Presented with 2-3 month history of R throat pain and referred otalgia, followed by Dr. Conrad and planned for OR for biopsy. Developed acute PE and transferred [place] [facility] [place]. Staging PET-CT showed possible uptake in upper cervical nodes bilaterally. Underwent TORS resection 07/13/17. Large tumor extending down in the vallecula, epiglottis. Closed primarily. Post-op course notable for reintubation due to respiratory distress and found to have recurrent PE.Anticoagulation started and patient extubated with normal airway upon discharge. Imaging: Pathology/Histology: Specimen ?Specimen: ??Oropharynx ?Received: ??Fresh ?Procedure: ??Resection ? Type of Resection: ?? Base of tongue and partial epiglottis ?Specimen Size ? Greatest Dimensions: ?? 5 x 4.5 x 3.0 cm ?Specimen Laterality: ?? Right ?Primary Tumor Site: ?? Oropharynx ? Oropharynx Tumor Involvement: ?? Base of tongue, including lingual tonsil ?Additional Sites Involved By Tumor: ?None identified ?Tumor Laterality: ?? Right ?Tumor Focality: ?? Single focus ?Tumor Size: ?? 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 G3: Poorly differentiated Margins ?Margins - Invasive Status: ?? Margins uninvolved by invasive carcinoma ? Distance of Tumor from Closest Margin: ?Cannot be assessed, See Comment ? Location of Closest Margin, Per Orientation: ?Left vallecula, 2-mm in ?Specimen R ?Margins - In Situ Status: ?? Not applicable Accessory Findings ?Lymph-Vascular Invasion: ?? Not identified ?Perineural Invasion: ?? Not identified Lymph Nodes ?Number of Lymph Nodes Examined: ?? 15 ?Lymph Nodes Involved: ?? None identified ?Extracapsular Extension: ?? Not identified ?Lymph Nodes, Extranodal Extension: ?Not identified ?Levels Examined: ?? L - 0/3, M - 0/9, N - 0/3 (no nodes Part K). Special Studies ?Ancillary Studies: ?? Molecular HPV and P16 (positive); performed on prior ? biopsy - Please see separate report. Stage (pTNM) ?Pathologic Staging ? Pathologic Staging: ?? For all carcinomas excluding mucosal melanoma ? Pathological Stage: ?? pT2 pN0 Stage: Clinical Data (Exams, Labs, etc.): Molecular Pathology Results: Clinical Trial Availability: no Options Discussed: no indication Recommendations: Observation only DISCLAIMER: The patient was discussed and the tumor board made recommendations but it is ultimatelyup to the treatment provider(s) and the patient to determine the patient???s care. documented in this encounter Plan of Treatment Upcoming Encounters Date Type Department Care Team (Late st Contact Info) Description 08/01/2024 1:00 PM EDT Office Visit Hematology/Oncology at [address] [phone] Dmitry Bhatti MD [facility] HEMATOLOGY/[place] [address] Ellen Mcrae APRN [facility] [place] [address] 08/01/2024 1:30 PM EDT Infusion Hematology Oncology at [address] [phone] documented as of this encounter Visit Diagnoses Not on filedocumented in this encounter Care Teams Flour Inspector Relationship Specialty Start Date End Date Jovon Sifuentes MD [address] [place] [address] PCP - General 09/30/10 09/10/21 documented as of this encounter
--- OUTSIDE RECORDS SUMMARY | 2024-05-18 11:28 | XMS_ITS | Encounter Summary ---
[place] [address] Care Team Providers Care Administrative Coordinator Name Role Phone Jovon Sifuentes MD Primary Care Provider Encounter Details Date Type Department Care Team (Late Contact Info) Description 08/19/2017 Telephone [place] [phone] Vane Cardona Social History Tobacco Use Types Packs/Day Years [...] encounter Miscellaneous Notes * Telephone Encounter - Vane Cardona - 08/19/2017 10:37 AM EDT Sent [facility] referral fax to Roc Patrick at [phone]. Left message with Roc Patrick's office to confirm the fax and to ask if they needed additional information documented in this encounter Plan of Treatment Upcoming Encounters Date Type Department Care Team (Late Contact Info) Description 08/01/2024 1:00 PM EDT Office Visit Hematology/Oncology at [address] [phone] Dmitry Bhatti MD [facility] DR HEMATOLOGY/[place] [address] Ellen Mcrae APRN [facility] [place] [address] 08/01/2024 1:30 PM EDT Infusion Hematology Oncology at [address] [phone] documented as of this encounter Visit Diagnoses Not on filedocumented in this encounter Care Teams Administrative Coordinator Relationship Specialty Start Date End Date Jovon Sifuentes MD [address] [place] [address] PCP - General 09/30/10 09/10/21 documented as of this encounter
--- OUTSIDE RECORDS SUMMARY | 2024-05-18 11:28 | XMS_ITS | Encounter Summary ---
Author Organization [facility] [place] [address] Care Team Providers Care Middleware Developer Name Role Phone Jovon Sifuentes MD Primary Care Provider Encounter Details Date Type Department Care Team (Latest Contact Info) Description 11/29/2017 Multidisciplinary Ca re [place] [address] Zafar Madera MD [facility] [place] [address] Social History Tobacco Use Types Packs/Day Years [...] PM EDT Office Visit Hematology/Oncology at [address] [phone] Dmitry Bhatti MD [facility] DR HEMATOLOGY/[place] [address] Ellen Mcrae APRN [facility] DR [place] [address] 08/01/2024 1:30 PM EDT Infusion Hematology Oncology at [address] [phone] documented as of this encounter Visit Diagnoses Not on filedocumented in this encounter Care Teams Middleware Developer Relationship Specialty Start Date End Date Jovon Sifuentes MD [address] [place] [address] PCP - General 09/30/10 09/10/21 documented as of this encounter
--- OUTSIDE RECORDS SUMMARY | 2024-05-18 11:28 | XMS_ITS | Encounter Summary ---
[place] [address] Care Team Providers Care Medical Dir Name Role Phone Jovon Sifuentes MD Primary Care Provider Reason for Referral * Diagnostic Test (Routine) - Closed Specialty Diagnoses / Procedures Referred By Contac t Referred To Contact Radiology Diagnoses Cancer of base of tongue Procedures CT Chest w Contrast Sriram Contreras MD [facility] [place] [address] [facility] [place] [address] Referral ID Status Reason Start Date Expiration Date V isits Requested Visits Authorized [id number] Closed Specialty Service Requested 07/21/2018 09/18/2018 1 1 * Diagnostic Test (Routine) - Specialty Diagnoses / Procedures Referred By Contac t Referred To Contact Radiology Diagnoses Cancer of base of tongue Procedures CT Neck Soft Tissue w Contrast (Generic) Sriram Contreras MD [facility] [place] [address] [facility] [place] [address] Referral ID Status Reason Start Date Expiration Date Visits Requested Visits Authorized [id number] Specialty Service Requested 07/21/2018 09/18/2018 1 1 Reason for Visit * Diagnostic Test (Routine) - Closed Specialty Diagnoses / Procedures Referred By Huma t Referred To Contact Radiology Diagnoses Cancer of base of tongue Procedures CT Chest w Contrast Sriram Contreras MD [facility] [place] [address] [facility] [place] [address] Referral ID Status Reason Start Date Expiration Date V isits Requested Visits Authorized [id number] Closed Specialty Service Requested 07/21/2018 09/18/2018 1 1 Encounter Details Date Type Department Care Team (Latest Contact Info) Description 08/08/2018 11:19 AM EDT - 08/08/2018 11:59 PM EDT Hospital [place] [address] Sriram Contreras MD [facility] [place] [address] Cancer of base of tongue [...] Take 10 mg by mouth nightly. 10/12/2023 guaiFENesin 600 mg Tablet Extended Release 12hr Take 1,200 mg by mouth 2 times daily. 03/02/2019 documented as of this encounter Plan of Treatment Upcoming Encounters Date Type Department Care Team (Late st Contact Info) Description 08/01/2024 1:00 PM EDT Office Visit Hematology/Oncology at [address] [phone] Dmitry Bhatti MD [facility] HEMATOLOGY/[place] [address] Ellen Mcrae APRN [facility] [place] [address] 08/01/2024 1:30 PM EDT Infusion Hematology Oncology at [address] [phone] documented as of this encounter Procedures Procedure Name Priority Date/Time Associated Diagnosis Comments CT CHEST W CONTRAST Routine 08/08/2018 1 2:11 PM EDT Cancer of base of tongue CT NECK SOFT TISSUE W CONTRAST Routine 08/08/2018 12:11 PM EDT Cancer of base of tongue documented in this encounter Results * CT Chest w Contrast (08/08/2018 12:11 PM EDT) Anatomical Region Laterality Modality Chest Computed Tomogra phy Impressions 08/08/2018 3:48 PM EDT Impression: No evidence of pulmonary metastasis. One year stability of pulmonary nodules, as above. No new nodules. I have personally reviewed the image(s) and the residents interpretation and agree with the findings, Lane Cote at 08/08/2018 3:48 PM Narrative 08/08/2018 3:48 PM EDT EXAMINATION: CT CHEST W CONTRAST CLINICAL HISTORY: tongue base cancer, assess for pulmonary mets TECHNIQUE: Helical CT of the chest was performed following intravenous administration of 110ml of Omnipaque 350. Multiplanar reformatted images were generated. COMPARISON: CT of the chest 07/20/2017, 03/29/2017 ? FINDINGS: Lungs and airways: Stable size and appearance of known 7 mm perifissural anterior RIGHT upper lobe noncalcified pulmonary nodule (series 5 image 261). There are two sub-5 mm nodules in the periphery of the right upper lobe unchanged from the prior examination. No new pulmonary nodules. Platelike atelectasis is present in the lingula as well as mild dependent atelectasis at the lung bases. The large central airways are patent. Pleura and pericardium: No pneumothorax or pleural effusion. Heart and vasculature: Normal heart size. No pericardial effusion. Coronary artery calcifications are present. Mediastinum and hilar structures: No thoracic lymphadenopathy. A small hiatal hernia is present Upper abdomen: Stable bilateral simple renal cysts. Stable peripheral RIGHT hepatic lobe hypodense focus, too small to characterize but likely a hepatic cyst. No focal lytic or sclerotic osseous lesion. Stable severe anterior osteophytosis of the thoracolumbar spine. ? Procedure Note Lane Cote MD - 08/08/2018 EXAMINATION: CT CHEST W CONTRAST CLINICAL HISTORY: tongue base cancer, assess for pulmonary mets TECHNIQUE: Helical CT of the chest was performed following intravenous administration of 110ml of Omnipaque 350. Multiplanar reformatted imageswere generated. COMPARISON: CT of the chest 07/20/2017, 03/29/2017 ? FINDINGS: Lungs and airways: Stable size and appearance of known 7 mm perifissural anterior RIGHT upper lobe noncalcified pulmonary nodule (series 5 [id number]). There are two sub-5 mm nodules in the periphery of the right upper lobe unchanged from the prior examination. No new pulmonary nodules.Platelike atelectasis is present in the lingula as well as mild dependentatelectasis at the lung bases. The large central airways are patent. Pleura and pericardium: No pneumothorax or pleural effusion. Heart and vasculature: Normal heart size. No pericardial effusion.Coronary artery calcifications are present. Mediastinum and hilar structures: No thoracic lymphadenopathy. A smallhiatal hernia is present Upper abdomen: Stable bilateral simple renal cysts. Stable peripheralRIGHT hepatic lobe hypodense focus, too small to characterize but likely ahepatic cyst. No focal lytic or sclerotic osseous lesion. Stable severe anteriorosteophytosis of the thoracolumbar spine. ? IMPRESSION Impression: No evidence of pulmonary metastasis. One year stability of pulmonary nodules, as above. No new nodules. I have personally reviewed the image(s) and the residents interpretationand agree with the findings, Lane Cote at 08/08/2018 3:48 PM Sriram Contreras MD IMG CT ORDERABLES * CT Neck Soft Tissue w Contrast (Generic) (08/08/2018 12:11 PM EDT) Anatomical Region Laterality Modality Neck, Head Computed Tomogra phy Impressions 08/08/2018 1:56 PM EDT No evidence for recurrence. Narrative 08/08/2018 1:56 PM EDT EXAMINATION: CT NECK SOFT TISSUE W CONTRAST (GENERIC) CLINICAL HISTORY: tongue base cancer TECHNIQUE: CT neck with contrast. 110 cc of Omnipaque 350 administered. COMPARISON: MR neck 11/11/[address] neck 07/13/2017. FINDINGS: Postsurgical changes involve the right oropharynx and right neck following neck dissection. There is no evidence for recurrent mass. No lymphadenopathy. Soft tissue fullness and asymmetry of the left tongue base and left floor of mouth has a similar appearance compared to the previous MRI and presumably represents postoperative change. No lymphadenopathy. Salivary glands are unremarkable. Thyroid gland is normal. Multilevel cervical degenerative change again noted. Procedure Note Biju Romero MD - 08/08/2018 EXAMINATION: CT NECK SOFT TISSUE W CONTRAST (GENERIC) CLINICAL HISTORY: tongue base cancer TECHNIQUE: CT neck with contrast. 110 cc of Omnipaque 350 administered. COMPARISON: MR neck 11/11/[address] neck 07/13/2017. FINDINGS: Postsurgical changes involve the right oropharynx and rightneck following neck dissection. There is no evidence for recurrent mass. No lymphadenopathy. Soft tissue fullness and asymmetry of the left tonguebase and left floor of mouth has a similar appearance compared to the previous MRIand presumably represents postoperative change. No lymphadenopathy. Salivaryglands are unremarkable. Thyroid gland is normal. Multilevel cervicaldegenerative change again noted. IMPRESSION No evidence for recurrence. Sriram Contreras MD IMG CT ORDERABLES documented [...] Intravenous, ONCE PRN, 1 dose, Starting on Wed08/08/18 at 1211, Until Wed08/08/18 at 1212, Per Protocol, Warning Vesicant/Irritant Medication , Radiology Contrast, Routine Given 08/08/2018 12:12 PM EDT 110 mLs documented in this encounter Care Teams Medical Dir Relationship Specialty Start Date End Date Jovon Sifuentes MD [address] [place] [address] PCP - General 09/30/10 09/10/21 documented as of this encounter
--- OUTSIDE RECORDS SUMMARY | 2024-05-18 11:28 | XMS_ITS | Encounter Summary ---
[place] [address] Care Team Providers Care Sleep Medicine Physician Name Role Phone Jovon Sifuentes MD Primary Care Provider [phone] Reason for Referral * Diagnostic Test (Routine) - Closed Specialty Diagnoses / Procedures Referred By Huma valladares Referred To Contact Radiology Diagnoses Cancer of base of tongue Procedures MRI Soft Tissue Neck wwo Contrast MRI Soft Tissue Neck w Contrast Sriram Contreras MD [facility] [place]ARY[place] [address] [place] [address] Referral ID Status Reason Start Date Expiration Date V isits Requested Visits Authorized [id number] Closed Specialty Service Requested 11/05/2017 01/03/2018 1 1 Reason for Visit * Diagnostic Test (Routine) - Closed Specialty Diagnoses / Procedures Referred By Huma valladares Referred To Contact Radiology Diagnoses Cancer of base of tongue Procedures MRI Soft Tissue Neck wwo Contrast MRI Soft Tissue Neck w Contrast Sriram Contreras MD [facility] [place]OLARY[place] [address] [place] [address] Referral ID Status Reason Start Date Expiration Date V isits Requested Visits Authorized [id number] Closed Specialty Service Requested 11/05/2017 01/03/2018 1 1 Encounter Details Date Type Department Care Team (Latest Contact Info) Description 11/11/2017 12:23 PM EST - 11/11/2017 11:59 PM EST [place] [address] Sriram Contreras MD [facility] [place]OLARYNG[place] [address] Cancer of base of tongue Discharge Disposition: Home Social History Tobacco Use Types Packs/Day Years Used Date Smoking Tobacco: Former Cigarettes 1 1995 Pipe Smokeless Tobacco: Never Comments:quit cigarettes [...] Sig Dispensed Refills Start Date End Date ELIQUIS 5 mg Tablet 2 times daily. 0 10/21/2017 acetaminophen (TYLENOL) 325 mg Tablet Take 2 tablets by mouth every 4 hours. 30 tablet 1 07/29/2017 tamsulosin (FLOMAX) 0.4 mg Capsule, Sust. Release 24 hr Take 0.4 mg by mouth daily. UNABLE TO FIND Take 1 capsule by mouth nightly. Unisom 08/08/2018 bisacodyl (DULCOLAX) [address] 1 suppository rectally daily as needed (if no BM in 48 hours or per patient's routine). 60 suppository 3 07/29/2017 02/10/2018 polyethylene glycol (MIRALAX) 17 gram Powder in Packet Take 17 g by mouth daily as needed. 14 each 07/29/2017 02/10/2018 chlorhexidine (PERIDEX) 0.12 % Mouthwash Take 15 mLs by mouth 2 times daily. 120 mL 07/29/2017 12/16/2017 melatonin 5 mg Tablet Take by mouth nightly as needed. 04/14/2018 documented as of this encounter Plan of Treatment Upcoming Encounters Date Type Department Care Team (Late st Contact Info) Description 08/01/2024 1:00 PM EDT Office Visit Hematology/Oncology at [address] [phone] Dmitry Bhatti MD [facility] HEMATOLOGY/[place] [address] Ellen Mcrae APRN [facility] [place] [address] 08/01/2024 1:30 PM EDT Infusion Hematology Oncology at [address] [phone] documented as of this encounter Procedures Procedure Name Priority Date/Time Associated Diagnosis Comments MRI NECK WITH/WO CONTRAST Routine 11/11/2017 2:24 PM EST Cancer of base of tongue documented in this encounter Results * MRI Soft Tissue [...] residents interpretationand agree with the findings, Jac Comer MD at 11/11/2017 3:34 PM 3:34 PM Sriram Contreras MD IMG MRI ORDERABLES documented in this encounter Visit Diagnoses Diagnosis 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 documented in this encounter Administered Medications Inactive Administered Medications - up to 3 most recent administrations Medication Order MAR Action Action Date Dose Rate Site gadoterate meglumine (DOTAREM) 0.5 mmol/mL injection 0-20 mL/kg 0-20 mL/kg/dose, Intravenous, ONCE PRN, 1 dose, Starting on Shabana 11/11/17 at 1320, Until Shabana 11/11/17 at 1357, Per Protocol, Radiology Contrast, Routine Given 11/11/2017 1:57 PM EST 26 mLs documented in this encounter Care Teams Sleep Medicine Physician Relationship Specialty Start Date End Date Jovon Sifuentes MD [address] [place] [address] PCP - General 09/30/10 09/10/21 documented as of this encounter
--- OUTSIDE RECORDS SUMMARY | 2024-05-18 11:28 | XMS_ITS | Encounter Summary ---
Author Organization [facility], [facility] [place] [address] Care Team Providers Care Remodeler Name Role Phone Jovon Sifuentes MD Primary Care Provider [phone] Encounter Details Date Type Department Care Team (Late st Contact Info) Description 08/07/2017 Telephone [place] [address] Hilton Cheney PA [facility] [place] [address] Social History Tobacco Use Types Packs/Day Years [...] encounter Miscellaneous Notes * Telephone Encounter - Hilton Cheney PA - 08/07/2017 2:10 PM EDT Discussed with the patient regarding his current Lovenox anticoagulation regimen, and how I had spoken with Dr. Hardin, the Hematology Fellow concerning that regimen. I relayed to him their concerns for his prior usage of Eliquis, that there was not satisfactory evidence for its use with his given BMI, and that they considered Lovenox to be safer for him at this point in time, and that, as such, he should continue taking it. I advised the patient that he could discuss the matter further, if he wished, with Dr. Deleon of Hematology at his visit with her on 08/30/17, or to try to contact the Hematology Clinic on Wednesday. The patient appreciated the information and the call, and expressed u nderstanding of these points. documented in this encounter Plan of Treatment Upcoming Encounters Date Type Department Care Team (Late st Contact Info) Description 08/01/2024 1:00 PM EDT Office Visit Hematology/Oncology at [address] [phone] Dmitry Bhatti MD [facility] DR HEMATOLOGY/[place] [address] Ellen Mcrae APRN [facility] [place] [address] 08/01/2024 1:30 PM EDT Infusion Hematology Oncology at [address] [phone] documented as of this encounter Visit Diagnoses Not on filedocumented in this encounter Care Teams Remodeler Relationship Specialty Start Date End Date Jovon Sifuentes MD [address] [place] [address] PCP - General 09/30/10 09/10/21 documented as of this encounter
--- OUTSIDE RECORDS SUMMARY | 2024-05-18 11:28 | XMS_ITS | Encounter Summary ---
[place] [address] Care Team Providers Care Slitter And Rewinder Name Role Phone Jovon Sifuentes MD Primary Care Provider [phone] Encounter Details Date Type Department Care Team (Late Contact Info) Description 12/01/2017 Telephone [place] [phone] Dina Alonzo RN Social History Tobacco Use Types Packs/Day [...] encounter Miscellaneous Notes * Telephone Encounter - Dina Alonzo RN - 12/01/2017 7:57 AM EST On 11/30/17, at Dr. Contreras's request, I called Jose to report his MRI results and inform him that his case would be reviewed at [facility]. documented in this encounter Plan of Treatment Upcoming Encounters Date Type Department Care Team (Late Contact Info) Description 08/01/2024 1:00 PM EDT Office Visit Hematology/Oncology at [address] [phone] Dmitry Bhatti MD [facility] DR HEMATOLOGY/[place] [address] Ellen Mcrae APRN [facility] [place] [address] 08/01/2024 1:30 PM EDT Infusion Hematology Oncology at [address] [phone] documented as of this encounter Visit Diagnoses Not on filedocumented in this encounter Care Teams Slitter And Rewinder Relationship Specialty Start Date End Date Jovon Sifuentes MD [address] [place] [address] PCP - General 09/30/10 09/10/21 documented as of this encounter
--- OUTSIDE RECORDS SUMMARY | 2024-05-18 11:28 | XMS_ITS | Encounter Summary ---
Author Organization [facility] [place] [address] Care Team Providers Care Senior Pricing Analyst Name Role Phone Jovon Sifuentes MD Primary Care Provider [phone] Reason for Referral * Speech Therapy (Routine) - Specialty Diagnoses / Procedures Referred By Huma valladares Referred To Contact Speech Pathology Diagnoses Dysphagia, unspecified type Hilton Cheney PA [facility] [place] [address] Roc Patrick, HAND TOOL LAPPER [address] [place] [id number] Referral ID Status Reason Start Date Expiration Date V isits Requested Visits Authorized [id number] Evaluate and Treat 08/05/2017 02/01/2018 12 12 Reason for Visit * Reason Comments Other hospital check 07-29 Encounter Details Date Type Department Care Team (Late st Contact Info) Description 08/05/2017 3:30 PM EDT Office [place] [address] Hilton Cheney PA [facility] [place] [address] Dysphagia, unspecified type; Cancer of base of tongue; Bilateral impacted cerumen Social History Tobacco Use Types Packs/Day Years [...] - Inhaled Oxygen Concentration - - Weight 129.3 kg (285 lb) 08/05/2017 3:48 PM EDT Height 193 cm (6' 4) 08/05/2017 3:48 PM EDT Body Mass Index 34.69 08/05/2017 3:48 PM EDT documented in this encounter Patient Instructions * Patient Instructions* Hilton Cheney PA - 08/05/2017 3:30 PM EDT Salt water gargles 3-4 times per day. Referral to HAND TOOL LAPPER in [facility]. Nothing in the ears until next visit. Return to clinic in about 6 weeks. documented in this encounter Progress Notes * Hilton Cheney PA - 08/05/2017 3:30 PM EDT [facility] Head [facility] Neck Tumor [facility] Follow up visit This is a 66 y.o. 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 His hospital course was complicated by extended intubation, as well as respiratory distress, with subsequent findings of a right PE. He was placed Lovenox anticoagulation for 3-6 months. He was discharged on soft foods and nectarthick liquids and went to rehab. Case Date: 07/13/2017 Surgeon: Surgeon(s) and Role: * Sriram Contreras MD - Primary * Selvin Kaye MD - Resident-Supervisor Liquid Yeast * Hilton Cheney PA - Physician Hydrogen Cell Tender Preoperative diagnosis: Right tongue base cancer Postoperative diagnosis: Right tongue base cancer Procedure(s) (LRB): PHARYNGECTOMY, LIMITED (WRVU 19.13) (N/A) LARYNGOSCOPY, MICRO, LASER EXCISION (WRVU 12.14) (N/A) @GLOSSECTOMY, PARTIAL,WITH UNILATERAL RADICAL NECK DISSECTION (WRVU 30.14) (Right) MODIFIER LASER,CO2 (N/A) MODIFIER MEDTRONIC (N/A) Anesthesia: General New concerns since last visit: Left rehab after 4 days as felt he didn't need it, and afraid of cathing something from other patients. Eating going well, though still some difficulty. Tries to be mindful of smaller bites. Coughing a lot. Melatonin not helping him to sleep as it had in the past. Has tried Unasom, which is helping. Would like to see if can go back on Eliquis. Needs referral to HAND TOOL LAPPER in [facility]. Head and neck symptom survey >Symptom ?? >Comments Dysphagia y See HPI Odynophagia n Voice change or hoarseness n Breathing difficulties n Otalgia y On right, started a few days ago Hemoptysis n Adenopathy n Weight loss n Xerstomia n Trismus n Numbness n Loose Dentition n Taste disturbance n ?? PATHOLOGY Surgical Pathology DIAGNOSIS A - Anterior deep tongue base right, for frozen section - ? Positive for carcinoma. B - Lateral pharyngeal margin right side, for frozen section - ? Benign. C - Right epiglottic margin, for frozen section - ? Benign. D - Left epiglottic margin, for frozen section - ? Benign. E - Right base of tongue, for frozen section - ? Benign, inflamed tissue. F - Left base of tongue, for frozen section - ? Benign (edge of lingual tonsil). G - Pre-epiglottic margin, for frozen section - ? Benign. H - Right deep base of tongue, for frozen section - ? Benign. I - Left deep base of tongue, for frozen section - ? Benign. J - Left base of tongue #2, for frozen section - ? Benign (lingual tonsil). K - Level 1 - ? Benign soft tissue (no nodes) entirely submitted. L - N - See Synoptic O - Final deep margin right tongue base - ? Benign soft tissue. P - Left vallecula - ? Benign lingual-type tonsillar tissue. Q - Final inferior margin midline - ? Benign adipose. R - See Synoptic S - Tongue base, resection - ? Benign tongue base tissue. Specimen Parts: ?? L - Level 2 M - Level 3 N - Level 4 R - Right tongue base resection and epiglottic resection DIAGNOSIS Specimen ?Specimen: ??Oropharynx ?Received: ??Fresh ?Procedure: ??Resection [...] melanoma ? Pathological Stage: ?? pT2 pN0 Tumor Block(s): ?? R3, R5 Normal Block(s): ?? S2 Comments ?On Specimen R, only base of tongue margin slides are positive for tumor (in ? the specimen, but not the final separate margin). ?All other margins are negative. PROBLEM LIST Patient Active Problem List Diagnosis Date Noted ??? Acute respiratory failure 07/20/2017 Priority: High ??? Head and neck cancer 06/22/2017 Priority: High ??? Atrial fibrillation 04/26/2017 Priority: High ??? Pulmonary embolism 04/15/2017 Priority: High ??? Carcinoma of base of tongue 04/07/2017 Priority: High ??? KORI on CPAP 04/30/2017 Priority: Medium ??? Adult BMI 30+ 04/30/2017 Priority: Medium ??? Benign prostatic hyperplasia 04/15/2017 PAST HISTORY Past Medical History: Diagnosis Date ??? Arthritis ??? Atrial fibrillation ??? BPH (benign prostatic hyperplasia) ??? Cataract, right eye ??? ED (erectile dysfunction) ??? Hypothyroidism ??? Pulmonary embolism Past Surgical History: Procedure Laterality Date ??? ACHILLES TENDON SURGERY Right 1996 [facility] ??? KNEE ARTHROSCOPY [facility] ??? PRO BIOPSY OROPHARYNX N/A 05/24/2017 BIOPSY, OROPHARYNX (WRVU 1.44) performed by Zafar Madera MD at [facility] OR ??? PRO LARYNGOSCOPY, DIRCT, OP SCOPE, BIOPSY N/A 05/24/2017 LARYNGOSCOPY, MICROSCOPE, WITH BIOPSY (WRVU 3.55) performed by Zafar Madera MD at [facility] OR ??? PRO LARYNGOSCOPY, DIRECT, DX, OP MICROSCOP N/A 07/16/2017 LARYNGOSCOPY, WITH MICROSCOPE (WRVU 2.57) performed by Sriram Contreras MD at [facility] OR ??? PRO PART EXC TONGUE, UNILAT RAD NECK Right 07/13/2017 @GLOSSECTOMY, PARTIAL,WITH UNILATERAL RADICAL NECK DISSECTION (WRVU 30.14) performed by Sriram Contreras MD at [facility] ??? PRO PARTIAL REMOVAL OF PHARYNX N/A 07/13/2017 PHARYNGECTOMY, LIMITED (WRVU 19.13) performed by Sriram Contreras MD at [facility] ??? PRO UNLISTED PROCEDURE LARYNX N/A 07/13/2017 LARYNGOSCOPY, MICRO, LASER EXCISION (WRVU 12.14) performed by Sriram Contreras MD at [facility] ??? QUADRACEPS TENDON REPAIR Right 04/2016 [facility] ??? TONSILLECTOMY FAMILY HISTORY No family history on file. SOCIAL HISTORY Social History Substance Use Topics ??? Smoking status: Former Smoker Packs/day: 1.00 Years: 27.00 Types: Cigarettes, Pipe Start date: 1968 Quit date: 1995 ??? Smokeless tobacco: Never Used Comment: quit cigarettes in 1995 - but smoked occasional pipe ??? Alcohol use Yes Comment: 1-2 drinks a week - liquor ALLERGIES Allergies Allergen Reactions ??? Ibuprofen CIS - Nausea/Vomiting ??? Clindamycin Other (See Comments) Memory issues. MEDICATIONS Current Outpatient Prescriptions Medication Sig Dispense Refill ??? enoxaparin (LOVENOX) 100 mg/mL Syringe Inject 1 mL subcutaneously 2 times daily. ??? chlorhexidine (PERIDEX) 0.12 % Mouthwash Take 15 mLs by mouth 2 times daily. 120 mL 0 ??? melatonin 5 mg Tablet Take by mouth nightly as needed. ??? tamsulosin (FLOMAX) 0.4 mg Capsule, Sust. Release 24 hr Take 0.4 mg by mouth daily. ??? acetaminophen (TYLENOL) 325 mg Tablet Take 2 tablets by mouth every 4 hours. 30 tablet 1 ??? albuterol 90 mcg/actuation HFA Aerosol Inhaler Inhale 6 puffs into the lungs every 4 hours as needed for Wheezing. Use with spacer (Patient not taking: Reported on 08/05/2017) 1 Inhaler 1 ??? bisacodyl (DULCOLAX) [address] 1 suppository rectally daily as needed (if no BM in 48 hours or per patient's routine). (Patient not taking: Reported on 08/05/2017) 60 suppository 3 ??? polyethylene glycol (MIRALAX) 17 gram Powder in Packet Take 17 g by mouth daily as needed. (Patient not taking: Reported on 08/05/2017) 14 each 0 No current facility-administered medications for this visit. ROS: Pertinent positive findings discussed above. No other findings on review of constitutional visual, cardiovascular, respiratory, gastrointestinal, genitourinary, musculoskeletal, dermatologic, neurological, psychiatric, endocrine, hematologic or immunologic systems. EXAM: Vitals: Height (!) 193 cm (6' 4), weight (!) 129.3 kg (285 lb). General: No acute distress Face: Normocephalic and atraumatic Eyes: Extraocular movement is full and intact. No dysconjugate gaze. No evidence of nystagmus. Periocular structures and conjunctiva healthy without lesions. Ears: Left: with cerumen impaction medially against the TM with scant evidence of fungal infection on the wax. Right:with cerumen impaction medially against the TM with scant evidence of fungal infection on thewax. Nose: Normal external exam. Normal exam of the septum and turbinates. Mouth: Lips and gingiva pink, moist, without lesions. Tongue without lesions or masses. Hard palatewithout lesions. Pharynx: Normal exam of the tonsils, tonsillar fossa, soft palate, lateral pharyngeal wall, and posterior pharynx. Neck: Soft supple without significant lymphadenopathy. Right neck incision well healed. No erythema, induration, or drainage. Thyroid gland without masses or asymmetry. Trachea midline without deviation. Resp: Breathing comfortably without stridor or retractions. Neurologic: Cranial nerves II-XII intact and symmetric. Responds appropriately to questions. Psych: Normal mood and affect. PROCEDURE NOTE: Flexible Fiberoptic Laryngoscopy: Indications: Evaluation for mucosal lesion of the upper airway Topical anesthetic and decongestant applied to the nasal cavity. The scope was passed through the nasal cavity, through the nasopharynx, and into the oropharynx. Patient tolerated the procedure well without any complications. Nasal Cavity: Normal appearing mucosa, no obstructions or lesions noted. Nasopharynx: No lesions or masses noted. Oropharynx: Right base of tongue and pharynx incision clean and intact, with no evidence of dehiscence. Larynx: Epiglottis is surgically altered. Arytenoids are symmetric. True cords demonstrate full andsymmetric motion. Hypopharynx: Piriform sinuses are clear bilaterally, without evidence of masses or lesions. Some pooling of secretions was noted. Laryngeal penetration noted, but aspiration. Procedure: The impacted cerumen was obstructing the full view of the tympanic membrane, therefore the ear canals were cleaned of wax and debris bilaterally with binocular microscopy using small blunttip curettes, forceps and suctions as needed. CSF applied bilaterally. ASSESSMENT This is a 66 y.o. 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 His hospital course was complicated by extended intubation, as well as respiratory distress, with subsequent findings of a right PE. He was placed Lovenox anticoagulation for 3-6 months. He was discharged on soft foods and nectarthick liquids and went to rehab. Eating soft food and thick liquids well, no difficulty with breathing, speaking is improving. Emphasized being mindful of his swallowing, and will refer per his request for HAND TOOL LAPPER visits with Roc Patrick in [facility]. Discussed trying salt- water gargles to help control/thin his secretions that lead to coughing. Discussed my speaking with Hematology regarding possibility of restarting Eliquis andstopping Lovenox. Ears had dry wax impacted onto the TM's bilaterally, and with some scant fungal growth on the wax, which was largely removed. Applied CSF to both ears, and recommended nothing in ears until his return, and we would reassess at that time. Discussed pathology, with clear margins around the tumor, negative nodes, and negative for LVI or PNI. Discussed tumor board recommendations of observation, and the regular follow up for monitoring that he will have to do. The patient expressed understanding of these points and agreement with the plan. RECOMMENDATIONS Salt water gargles 3-4 times per day. Referral to HAND TOOL LAPPER in [facility]. Nothing in the ears until next visit. Return to clinic in about 6 weeks. Hilton Cheney PA-C 08/05/2017 [place], [place] [address] Office documented in this encounter Plan of Treatment Upcoming Encounters Date Type Department Care Team (Late st Contact Info) Description 08/01/2024 1:00 PM EDT Office Visit Hematology/Oncology at [address] [phone] Dmitry Bhatti MD [facility] DR HEMATOLOGY/[place] [address] Ellen Mcrae APRN [facility] [place] [address] 08/01/2024 1:30 PM EDT Infusion Hematology Oncology at [address] [phone] Scheduled Referrals Name Type Priority Associated Diagnoses Orde r Schedule Referral to Speech Therapy Outpatient Referral Routine Dysphagia, unspecified type Ordered: 08/05/2017 documented as of this encounter Visit Diagnoses Diagnosis Dysphagia, unspecified type 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 Bilateral impacted cerumen Impacted cerumen documented in this encounter Care Teams Senior Pricing Analyst Relationship Specialty Start Date End Date Jovon Sifuentes MD [address] [place] [address] PCP - General 09/30/10 09/10/21 documented as of this encounter
--- OUTSIDE RECORDS SUMMARY | 2024-05-18 11:28 | XMS_ITS | Encounter Summary ---
Author Organization [facility] [place] [address] Care Team Providers Care Powerhouse Oiler Name Role Phone Jovon Sifuentes MD Primary Care Provider [phone] Reason for Visit * Reason Comments Follow-up Larynx Cancer Encounter Details Date Type Department Care Team (Late st Contact Info) Description 12/16/2017 10:00 AM EST Office [place] [address] Sriram Contreras MD [facility] OTOLARYNGOLOGY [place] [address] Cancer of base of tongue Social History [...] Sign Reading Time Taken Comments Blood Pressure 113/77 12/16/2017 10:05 AM EST Pulse 56 12/16/2017 10:05 AM EST Temperature 36.6 ??C (97.8 ??F) 12/16/2017 10:[address] Respiratory Rate 18 12/16/2017 10:05 AM EST Oxygen Saturation 98% 12/16/2017 10:05 AM EST Inhaled Oxygen Concentration - - Weight 131.1 kg (289 lb) 12/16/2017 10:05 AM EST Height 191 cm (6' 3.2) 12/16/2017 10:05 AM EST Body Mass Index 35.93 12/16/2017 10:05 AM EST documented in this encounter Progress Notes * Sriram Contreras MD - 12/16/2017 10:00 AM EST [facility] OTOLARYNGOLOGY HEAD AND NECK TUMOR CLINIC FOLLOW UP NOTE Jose Bee is a 66 y.o. 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 He denies any issues with his swallowing. He has no pain. He denies anyadenopathy or other concerns. His weight has been stable. He denies any constitutional complaints or symptoms. No change in his health since his last visit. PROBLEM LIST Patient Active Problem List Diagnosis Code ??? Carcinoma of base of tongue C01 ??? Pulmonary embolism I26.99 ??? Benign prostatic hyperplasia N40.0 ??? Atrial fibrillation I48.91 ??? KORI on CPAP G47.33, Z99.89 ??? Adult BMI 30+ [id number] ??? Head and neck cancer C76.0 ??? [...] to Visit Medication Sig Dispense Refill ??? ELIQUIS 5 mg Tablet 2 times daily. 0 ??? UNABLE TO FIND Take 1 capsule by mouth nightly. Unisom ??? acetaminophen (TYLENOL) 325 mg Tablet Take 2 tablets by mouth every 4 hours. (Patient taking differently: Take 650 mg by mouth as needed.) 30 tablet 1 ??? polyethylene glycol (MIRALAX) 17 gram Powder in Packet Take 17 g by mouth daily as needed. 14 each 0 ??? melatonin 5 mg Tablet Take by mouth nightly as needed. ??? tamsulosin (FLOMAX) 0.4 mg Capsule, Sust. Release 24 hr Take 0.4 mg by mouth daily. ??? bisacodyl (DULCOLAX) [address] 1 suppository rectally daily as needed (if no BM in 48 hours or per patient's routine). (Patient not taking: Reported on 12/16/2017) 60 suppository 3 No current facility-administered medications on file prior to visit. ALLERGIES Allergies Allergen Reactions ??? Ibuprofen CIS - Nausea/Vomiting ??? Clindamycin Other (See Comments) Memory issues. ROS Pertinent positive findings discussed above. No other findings on review of constitutional visual, cardiovascular, respiratory, gastrointestinal, genitourinary, musculoskeletal, dermatologic, neurological, psychiatric, endocrine, hematologic or immunologic systems. PHYSICAL EXAMINATION Wt Readings from Last 3 Encounters: 12/16/17 131.1 kg (289 lb) 11/11/17 127 kg (280 lb) 09/16/17 (!) 126.1 kg (278 lb) General: Well developed, no distress Head/face: [...] the [employer] and uploaded to the [employer]. Findings Nasal cavity Normal Nasopharynx normal Oropharynx Tongue base well healed - no recurrence or changes when compared with prior Larynx S/p epiglottectomy with good reconstruction of edith-epiglottis. Normal vocal cords. Hypopharynx normal REVIEW OF IMAGES none ASSESSMENT/RECOMMENDATIONS No evidence of recurrence. The patient does report some increased mucus in the throat and dry mouthin the morning. I do not have a good explanation for the dry mouth. The mucus should improve as he continues to heal. He does also experience some dysphasia with crackers, peanut butter and bread. Again this may or may not improve as time goes on. I will see him back in about 6-8 weeks. We will plan on repeating neck and chest imaging at 1 year in particular given the small subcentimeter pulmonary nodule seen on his PET/CT. These were not seenon this follow-up chest CT which was for pulmonary embolus. I appreciate the opportunity to be involved in Mr. Bee's care. SRIRAM CONTRERAS MD 12/16/2017 documented in this encounter Plan of Treatment Upcoming Encounters Date Type Department Care Team (Late st Contact Info) Description 08/01/2024 1:00 PM EDT Office Visit Hematology/Oncology at [address] [phone] Dmitry Bhatti MD [facility] DR HEMATOLOGY/[place] [address] Ellen Mcrae APRN [facility] DR MEDICAL [place] [address] 08/01/2024 1:30 PM EDT Infusion Hematology Oncology at [address] [phone] documented as of this encounter Visit Diagnoses Diagnosis 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 documented in this encounter Care Teams Powerhouse Oiler Relationship Specialty Start Date End Date Jovon Sifuentes MD [address] [place] [address] PCP - General 09/30/10 09/10/21 documented as of this encounter
--- OUTSIDE RECORDS SUMMARY | 2024-05-18 11:28 | XMS_ITS | Encounter Summary ---
Author Organization [facility] [place] [address] Care Team Providers Care Pipe Threader Name Role Phone Jovon Sifuentes MD Primary Care Provider [phone] Encounter Details Date Type Department Care Team (Late st Contact Info) Description 01/25/2018 12:00 PM EDT Office Visit [place] [address] Geovanna Deleon MD [facility] HEMATOLOGY/[place] [address] Recurrent pulmonary embolism Social History Tobacco Use Types Packs/Day Years [...] Sign Reading Time Taken Comments Blood Pressure 109/51 01/25/2018 11:42 AM EDT Pulse 74 01/25/2018 11:42 AM EDT Temperature 36.2 ??C (97.2 ??F) 01/25/2018 1 1:42 AM EDT Respiratory Rate 18 01/25/2018 11:4 2 AM EDT Oxygen Saturation 99% 01/25/2018 11: 42 AM EDT Inhaled Oxygen Concentration - - Weight 126.8 kg (279 lb 9.6 oz) 018 11:42 AM EDT Height 188 cm (6' 2.02) 01/25/2018 11: 42 AM EDT Body Mass Index 35.88 01/25/2018 11:42 AM EDT documented in this encounter Progress Notes * Geovanna Deleon MD - 01/25/2018 12:00 PM EDT [facility] [place], [place] [address] THROMBOSIS FOLLOW-UP DATE OF VISIT 01/25/2018 Patient Jose Bee 1950 REFERRING PHYSICIAN Zafar Madera MD PRIMARY CARE PHYSICIAN Jovon Sifuentes MD THROMBOSIS PROBLEM LIST 1. 03/29/2017 pulmonary embolism in the setting of newly diagnosed cancer Tx: apixaban until his cancer surgery 2. 07/20/2017 recurrent pulmonary embolism post surgery (partial glossectomy and unilateral radical neck dissection ~10 hours) while on enoxaparin prophylactic dose 40 mg SQ once daily. Likely inadequate dosing for his morbid obesity Tx: increase enoxaparin dose to 100 mg SQ BID -> switch back to apixaban in Sep 2017 Thrombophilia: not performed Clinical risk factors: obesity, postop Resolved risk factor: cancer INTERIM history He returns for follow-up today. He has been doing fine on apixaban without any bleeding issues. He denies any chest pain, shortness of breath or leg swelling. He has lost > 30 lbs after his surgery and gained a little bit back, but he is cautious about what he eats and does not want to gain too much weight. Overall his weight has been stable and he can eat pretty much everything without dysphag ia. He was last seen by Dr. Grove for follow-up in Dec 2017. There was no evidence of recurrent disease. Prior to his VTE, he was on low dose aspirin for his history of paroxysmal atrial fibrillation which was diagnosed 3-4 years ago incidentally. He stated that it was detected during the time that he donated blood. He denies any history of stroke. He stated that his doubler helper has mentionedthat he might need to stay on long-term anticoagulation due to his VTE+ afib. PAST MEDICAL HISTORY Pulmonary embolism Tongue base cancer s/p glossectomy Sleep apnea on CPAP BPH Atrial fibrillation OPERATIVE PROCEDURES Quad tendon repair s/p fall Achilles tendon repair Arthroscopic knee surgery Tonsillectomy S/p glossectomy and unilateral radical neck dissection MEDICATIONS Current Outpatient Prescriptions on File Prior to Visit Medication Sig Dispense Refill ??? ELIQUIS 5 mg Tablet 2 times daily. 0 ??? UNABLE TO FIND Take 1 capsule by mouth nightly. Unisom ??? acetaminophen (TYLENOL) 325 mg Tablet Take 2 tablets by mouth every 4 hours. (Patient taking differently: Take 650 mg by mouth as needed.) 30 tablet 1 ??? bisacodyl (DULCOLAX) [address] 1 suppository rectally daily as needed (if no BM in 48 hours or per patient's routine). 60 suppository 3 ??? polyethylene glycol (MIRALAX) 17 gram Powder in Packet Take 17 g by mouth daily as needed. 14 each 0 ??? melatonin 5 mg Tablet Take by mouth nightly as needed. ??? tamsulosin (FLOMAX) 0.4 mg Capsule, Sust. Release 24 hr Take 0.4 mg by mouth daily. No current facility-administered medications on file prior to visit. ADVERSE DRUG REACTIONS Allergies as of 01/25/2018 - Review Complete 01/25/2018 Allergen Reaction Noted ??? Ibuprofen ??? Clindamycin Other (See Comments) 04/27/2017 FAMILY HISTORY No family history of VTE Father of parkinson's disease in his 80. Mother of old age in her 90s. 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 Stable weight now Headache/lightheadedness/syncope No Sinus pain/pressure No Oral sores/lesions/bleeding No Sore throat/dysphagia No Nosebleeds No Cough/SOB/chest pain/heart racing No Nausea/vomiting/dyspepsia No Abdominal pain No Diarrhea/constipation No Urinary pain, burning, incontinence No Hematuria No Penile discharge/bleeding No Skin rashes/ulcers No Back/joint pain/swelling Chronic knee pain, shoulder pain unchanged Leg swelling/pain/redness No Bruising/petechiae/bleeding/melena No Sensory/motor No Polydipsia/polyuria/heat/cold intol No Lumps/bumps/swollen glands No Other No PHYSICAL EXAMINATION BP 109/51 (Patient Position: Sitting) Pulse 74 Temp 36.2 ??C (97.2 ??F) (Temporal) Resp 18 Ht 188 cm (6' 2.02) Wt 126.8 kg (279 lb 9.6 oz) SpO2 99% BMI 35.88 kg/m2 GENERAL: Well-appearing, articulate white male. HEENT: No oral lesions. NECK: Surgical scar well healed without bleeding CHEST/LUNGS: Clear to auscultation/percussion. No rales, rhonchi, wheezes. HEART: Regular rate and rhythm; no murmur, rub, gallop GASTROINTESTINAL: Abdomen soft, non-tender GENITOURINARY: Exam deferred. EXTREMITIES: No clubbing, cyanosis or edema. No erythema, tenderness or palpable cords. MUSCULOSKELETAL: Spine nontender. No acutely inflamed joints. SKIN: ecchymoses at enoxaparin injection site, No petechiae, ulcers or rashes. LYMPH: No palpable lymph nodes NEUROLOGIC: Alert, oriented. Speech clear, coherent. No focal deficits noted. PSYCHIATRIC: Appropriate affect, no apparent distress. LABORATORY STUDIES None RADIOGRAPHIC STUDIES None IMPRESSION Jose Bee is a 67 y.o. 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 In brief, Mr. Bee was diagnosed with pulmonary embolism in March 2017 in the setting of newly diagnosed tongue base cancer. He was initially treated with apixaban prior his surgery. Postoperatively he was placed on prophylactic enoxaparin 40 mg SQ once daily. He developed recurrent multiple pulmonary emboli on POD#5 while on enoxaparin 40 mg SQ once daily. His recurrent pulmonary embolism canbe explained by prolonged surgery ( ~10 hours) and period of immobility 2nd to hospitalization. It was also thought that enoxaparin at prevention dose of 40 mg SQ once daily was probably not adequatefor his obesity. After his recurrent PE was discovered, his enoxaparin dose was increased to 100 mgSQ BID with confirmatory adequate anti-Xa level. I have switched his enoxaparin to apixaban in Sep 2017 and he has been doing fine on apixaban since then. He saw Dr. Grove last month for follow-upand there is no evidence of recurrent cancer at last follow-up. We discussed that although he did have two pulmonary embolism. His first PE occurred in the settingof newly diagnosed cancer and the second PE occurred after a long surgery and possible inadequate dose of enoxaparin due to his morbid obesity. Now that his main risk factor which was his cancer has been eliminated, I do think that we can consider a finite course of anticoagulation. He has recovered well from his VTE. He has completed at least 6 months of anticoagulation after his last PE which should be adequate. I recommend him to stay on apixaban until I clarify with his doubler helper. I just want to make surethat he does not require to stay on long-term anticoagulation for his previous history of PAF. His CHADS2-VASc is only 1. I think that he can probably switch back to aspirin 81 mg PO daily for stroke prevention. We discussed that if he can come off anticoagulation, pharmacologic thromboprophylaxis during high risk period including surgery, hospitalization, period of immobility, trauma should be considered inthe future. I am happy to see him back and formulate thromboprophylaxis if the time comes. I encourage him to stay physical active and maintain healthy weight. He also should follow-up routinely withDr. Grove to follow-up his cancer. PLAN/RECOMMENDATIONS 1. Continue apixaban 5 mg PO BID for now. Favor a finite course of anticoagulation. - I will contact Dr. Lr, his doubler helper and make sure that he agrees that he can come off anticoagulation and does not require it for his PAF - if he can come off anticoagulation, then he will need to stay on low dose aspirin long-term for his PAF. Jose Anaya Kenna had the opportunity to ask questions and indicated that all his questions were answered to his satisfaction. I will call him after discussing with his doubler helper. Geovanna Deleon MD Addendum 02/02/2018 I have discussed with Dr. Lr. Below is his message: I think it is a toss up to continue AC or stop for CHADS2-Vasc of 1. ??Risks and benefits pretty closely matched. I often use the SPARC AF website decision aid to help patients decide. ??Risk of stroke is small but not zero. ??US guidelines says either/or. AF guidelines favor AC for this risk stratum. No treatment 1.5% annual risk, aspirin 1.2%, apixaban 0.4%. If he is tolerating it well and it is affordable, I might stay on it myself I reviewed the recommendation from Dr. Lr with Jose. I explained to him that apixaban is superior to aspirin in stroke risk reduction and also will reduce his risk for VTE to the minimum ~ 1%/year. We discussed that the risk of life-threatening bleeding on apixaban is < 1 %/year. Given that he will benefit from staying on apixaban for afib also, he agrees to stay on long-term anticoagulation apixaban 5 mg PO BID. Geovanna Deleon MD documented in this encounter Plan of Treatment Upcoming Encounters Date Type Department Care Team (Late st Contact Info) Description 08/01/2024 1:00 PM EDT Office Visit Hematology/Oncology at [address] [phone] Dmitry Bhatti MD [facility] DR HEMATOLOGY/[place] [address] Ellen Mcrae APRN [facility] [place] [address] 08/01/2024 1:30 PM EDT Infusion Hematology Oncology at [address] [phone] documented as of this encounter Visit Diagnoses Diagnosis Recurrent pulmonary embolism Other pulmonary embolism and infarction documented in this encounter Care Teams Pipe Threader Relationship Specialty Start Date End Date Jovon Sifuentes MD [address] [place] [address] PCP - General 09/30/10 09/10/21 documented as of this encounter
--- OUTSIDE RECORDS SUMMARY | 2024-05-18 11:28 | XMS_ITS | Encounter Summary ---
[place] [address] Care Team Providers Care Alpaca Farmer Name Role Phone Jovon Sifuentes MD Primary Care Provider [phone] Encounter Details Date Type Department Care Team (Late Contact Info) Description 07/04/2018 Telephone [place] [phone] [place] Lambert Social History Tobacco Use Types [...] * Telephone Encounter - [place] Lambert - 07/04/2018 3:26 PM EDT Left message to schedule 3 month follow up after CT scan - OV with JYOTHI first available, safety questions NOT answered. documented in this encounter Plan of Treatment Upcoming Encounters Date Type Department Care Team (Late st Contact Info) Description 08/01/2024 1:00 PM EDT Office Visit Hematology/Oncology at [address] [phone] Dmitry Bhatti MD [facility] DR HEMATOLOGY/[place] [address] Ellen Mcrae APRN [facility] [place] [address] 08/01/2024 1:30 PM EDT Infusion Hematology Oncology at [address] [phone] documented as of this encounter Visit Diagnoses Not on filedocumented in this encounter Care Teams Alpaca Farmer Relationship Specialty Start Date End Date Jovon Sifuentes MD [address] [place] [address] PCP - General 09/30/10 09/10/21 documented as of this encounter
--- OUTSIDE RECORDS SUMMARY | 2024-05-18 11:28 | XMS_ITS | Encounter Summary ---
[place] [address] Care Team Providers Care Insurance Salesperson Name Role Phone Jovon Sifuentes MD Primary Care Provider Reason for Referral * Diagnostic Test (Routine) - Closed Specialty Diagnoses / Procedures Referred By Contac t Referred To Contact Radiology Diagnoses Cancer of base of tongue Procedures CT Chest w Contrast Sriram Contreras MD [facility] [place] [address] [facility] [place] [address] Referral ID Status Reason Start Date Expiration Date V isits Requested Visits Authorized [id number] Closed Specialty Service Requested 07/21/2018 09/18/2018 1 1 * Diagnostic Test (Routine) - Specialty Diagnoses / Procedures Referred By Contac t Referred To Contact Radiology Diagnoses Cancer of base of tongue Procedures CT Neck Soft Tissue w Contrast (Generic) Sriram Contreras MD [facility] [place] [address] [facility] [place] [address] Referral ID Status Reason Start Date Expiration Date Visits Requested Visits Authorized [id number] Specialty Service Requested 07/21/2018 09/18/2018 1 1 Encounter Details Date Type Department Care Team (Late st Contact Info) Description 07/04/2018 Orders Only [place] [address] Sriram Contreras MD [facility] [place] [address] Cancer of base of tongue Social History [...] PM EDT Office Visit Hematology/Oncology at [address] [phone] Dmitry Bhatti MD [facility] DR HEMATOLOGY/[place] [address] Ellen Mcrae APRN [facility] [place] [address] 08/01/2024 1:30 PM EDT Infusion Hematology Oncology at [address] [phone] documented as of this encounter Results * [...] upper lobe noncalcified pulmonary nodule (series 5 [id number]). There are two sub-5 mm nodules in [...] tongue documented in this encounter Care Teams Insurance Salesperson Relationship Specialty Start Date End Date Jovon Sifuentes MD [address] [place] [address] PCP - General 09/30/10 09/10/21 documented as of this encounter
--- OUTSIDE RECORDS SUMMARY | 2024-05-18 11:28 | XMS_ITS | Encounter Summary ---
[place] [address] Care Team Providers Care Museum Librarian Name Role Phone Jovon Sifuentes MD Primary Care Provider [phone] Encounter Details Date Type Department Care Team (Late Contact Info) Description 07/29/2017 Telephone [place] [phone] Vane Cardona Social History Tobacco Use Types [...] * Telephone Encounter - Vane Cardona - 07/29/2017 2:42 PM EDT Left message for patient with post-operative appointment for 07/05 documented in this encounter Plan of Treatment Upcoming Encounters Date Type Department Care Team (Late st Contact Info) Description 08/01/2024 1:00 PM EDT Office Visit Hematology/Oncology at [address] [phone] Dmitry Bhatti MD [facility] DR [place]EMATOLOGY/[place] [address] Ellen Mcrae APRN [facility] [place] [address] 08/01/2024 1:30 PM EDT Infusion Hematology Oncology at [address] [phone] documented as of this encounter Visit Diagnoses Not on filedocumented in this encounter Care Teams Museum Librarian Relationship Specialty Start Date End Date Jovon Sifuentes MD [address] [place] [address] PCP - General 09/30/10 09/10/21 documented as of this encounter
--- OUTSIDE RECORDS SUMMARY | 2024-05-18 11:28 | XMS_ITS | Encounter Summary ---
Author Organization [facility] [place] [address] Care Team Providers Care Glass Novelty Maker Name Role Phone Jovon Sifuentes MD Primary Care Provider Encounter Details Date Type Department Care Team (Late st Contact Info) Description 12/02/2017 Telephone [place] [address] Sriram Contreras MD [facility] [place] [address] Social History Tobacco Use Types Packs/Day Years [...] encounter Miscellaneous Notes * Telephone Encounter - Sriram Contreras MD - 12/02/2017 10:39 AM EST Called patient to review MRI results. I reviewed films with Dr. Romero. The level II node is actually lateral to SCM so it is not in level II but just inferior to parotid. Has not changed since scan in July and does not light up on PET. Pharynx also looks unremarkable. Reassured patient and wewill continue to monitor. documented in this encounter Plan of Treatment Upcoming Encounters Date Type Department Care Team (Late st Contact Info) Description 08/01/2024 1:00 PM EDT Office Visit Hematology/Oncology at [address] [phone] Dmitry Bhatti MD [facility] DR HEMATOLOGY/[place] [address] Ellen Mcrae APRN [facility] [place] [address] 08/01/2024 1:30 PM EDT Infusion Hematology Oncology at [address] [phone] documented as of this encounter Visit Diagnoses Not on filedocumented in this encounter Care Teams Glass Novelty Maker Relationship Specialty Start Date End Date Jovon Sifuentes MD [address] [place] [address] PCP - General 09/30/10 09/10/21 documented as of this encounter
--- OUTSIDE RECORDS SUMMARY | 2024-05-18 11:28 | XMS_ITS | Encounter Summary ---
Author Organization [facility] Address [facility] [place] [address] Care Team Providers Care Cloth Tester Quality Name Role Phone Jovon Sifuentes MD Primary Care Provider [phone] Reason for Visit * Reason Comments Follow-up contiues with some n sheryl and throat swelling, continues to clear his throat alot, using Mucinex with some effect. tried claritin yesterday it worked a little better. Encounter Details Date Type Department Care Team (Late st Contact Info) Description 04/14/2018 10:15 AM EDT Office [place] [phone] Sriram Contreras MD [facility] [place] [address] Cancer of base of tongue; Allergic rhinitis, [...] - Inhaled Oxygen Concentration - - Weight 124.7 kg (275 lb) 04/14/2018 10:45 AM EDT Height 190.5 cm (6' 3) 04/14/2018 10:45 AM EDT Body Mass Index 34.37 04/14/2018 10:45 AM EDT documented in this encounter Progress Notes * Sriram Contreras MD - 04/14/2018 10:15 AM EDT . [facility] FOLLOW UP NOTE Jose Bee is a 67 y.o. 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 Doesn't think a lot has changed, he reports that he still notices some swelling in his throat. He states that his has noticed voice changes that he reports causes a slightslur to his speech, he is unsure if this is connected to allergies. He reports no change to swallowing, states that it may have improved a bit. He reports that he is eating better and reports that he is complaining less when he eats. He denies any hemoptysis He has not detected any adenopathy or other concerns. He still reporting postnasal drip which she detects primarily on the left-hand side. He does have seasonal allergies. He denies any nasal obstructive symptoms. Mucinex helps with his post-nasal drainage, has tried clariitan yesterday which he states he feels more improvement. PROBLEM LIST Patient Active Problem List Diagnosis Code ??? Carcinoma of base of tongue C01 ??? Pulmonary embolism I26.99 ??? Benign prostatic hyperplasia N40.0 ??? Atrial fibrillation I48.91 ??? KORI on CPAP G47.33, Z99.89 ??? Adult BMI 30+ [id number] PAST MEDICAL HISTORY Past Medical History: Diagnosis [...] to Visit Medication Sig Dispense Refill ??? glucosamine/chondr mclaughlin A sod (OSTEO BI-FLEX [...] 0.4 mg by mouth daily. ??? [DISCONTINUED] melatonin 5 mg Tablet Take by mouth [...] EXAMINATION Wt Readings from Last 3 Encounters: 04/14/18 124.7 kg (275 lb) 02/10/18 125.2 kg (276 lb) 01/25/18 126.8 kg (279 lb 9.6 oz) General: Well developed, no distress Head/face: [...] the TelePack Unit and uploaded to the [employer]. Findings Nasal cavity Right nasal cavity examination is normal. Nasopharynx normal Oropharynx Tongue base well healed - no recurrence or changes when compared with prior Larynx S/p epiglottectomy with good reconstruction of edith-epiglottis. Normal vocal cords. Hypopharynx normal REVIEW OF IMAGES none ASSESSMENT/RECOMMENDATIONS No evidence of recurrence. He is doing well with reports of improvement in swallowing Still with complaints of mucous and post-nasal drainage, advised to switch to Claritin daily. I also recommended sinus rinse kit to be used twice a day. I appreciate the opportunity to be involved in Mr. Bee's care. SERVANDO Au 04/14/2018 Attending note: This was shared visit with the PA. This patient underwent TLM resection of tongue base tumor. He reports no new complaints with regards to speech and swallowing. No adenopathy or other masses. Head and neck exam including FFNPL demonstrates no evidence of recurrence. We recommend sinus rinse kit and claritin for his PND. RTC 3 months documented in this encounter Plan of Treatment Upcoming Encounters Date Type Department Care Team (Late st Contact Info) Description 08/01/2024 1:00 PM EDT Office Visit Hematology/Oncology at [address] [phone] Dmitry Bhatti MD [facility] HEMATOLOGY/[place] [address] Ellen Mcrae APRN [facility] [place] [address] 08/01/2024 1:30 PM EDT Infusion Hematology Oncology at [address] [phone] documented as of this encounter Visit Diagnoses Diagnosis 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 Allergic rhinitis, unspecified seasonality, unspecified trigger documented in this encounter Care Teams Cloth Tester Quality Relationship Specialty Start Date End Date Jovon Sifuentes MD [address] [place] [address] PCP - General 09/30/10 09/10/21 documented as of this encounter
--- OUTSIDE RECORDS SUMMARY | 2024-05-18 11:28 | XMS_ITS | Encounter Summary ---
Author Organization [facility] [place] [address] Care Team Providers Care Sea Foam Kiss Maker Name Role Phone Jovon Sifuentes MD Primary Care Provider [phone] Reason for Visit * Reason Comments Follow-up Patient feels he nee ds to clear his throat a lot due to post nasal drip. Swallowing continues to improve. Encounter Details Date Type Department Care Team (Late st Contact Info) Description 08/08/2018 1:00 PM EDT Office [place] [address] Sriram Contreras MD [facility] [place] [address] Cancer of base of tongue Social History [...] - Inhaled Oxygen Concentration - - Weight 130.5 kg (287 lb 11.2 oz) 2017 12:26 PM EDT Height 190.5 cm (6' 3) 08/08/2018 12:2 6 PM EDT Body Mass Index 35.96 08/08/2018 12:26 PM EDT documented in this encounter Progress Notes * Sriram Contreras MD - 08/08/2018 1:00 PM EDT . [facility] [place] HEAD AND NECK TUMOR CLINIC FOLLOW UP NOTE Jose Bee is a 67 y.o. 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 Taste is present but diminished. No dysphagia. He continues to complain of PND, mucinex has helped. PROBLEM LIST Patient Active Problem List Diagnosis Code ??? Carcinoma of base of tongue C01 ??? Pulmonary embolism I26.99 ??? Benign prostatic hyperplasia N40.0 ??? Atrial fibrillation I48.91 ??? KORI on CPAP G47.33, Z99.89 ??? Adult BMI 30+ [id number] PAST MEDICAL HISTORY Past Medical History: Diagnosis [...] EXAMINATION Wt Readings from Last 3 Encounters: 08/08/18 130.5 kg (287 lb 11.2 oz) 04/14/18 124.7 kg (275 lb) 02/10/18 125.2 kg (276 lb) General: Well developed, no distress Head/face: [...] the TelePack Unit and uploaded to the [employer] Clinical Programmer. Findings Nasal cavity Right nasal cavity examination is normal. Nasopharynx normal Oropharynx Tongue base well healed - no recurrence or changes when compared with prior Larynx S/p epiglottectomy with good reconstruction of edith-epiglottis. Normal vocal cords. Hypopharynx normal REVIEW OF IMAGES CT neck: COMPARISON: MR neck 11/11/[address] neck 07/13/2017. ?? FINDINGS: Postsurgical changes involve the right oropharynx [...] normal. Multilevel cervical degenerative change again noted. ?? IMPRESSION No evidence for recurrence. CT chest: FINDINGS: Lungs and airways: Stable size and [...] lymphadenopathy. A small hiatal hernia is present ?? Upper abdomen: Stable bilateral simple renal cysts. Stable peripheral RIGHT hepatic lobe hypodense focus, too small to characterize but likely a hepatic cyst. No focal lytic or sclerotic osseous lesion. Stable severe anterior osteophytosis of the thoracolumbar spine. ? IMPRESSION Impression: No evidence of pulmonary metastasis. One year stability of pulmonary nodules, as above. No new nodules. ASSESSMENT/RECOMMENDATIONS MAGY both clinically and radiographically after 1 year Follow up in 3 months I appreciate the opportunity to be involved in Mr. Bee's care. SRIRAM CONTRERAS MD 08/09/2018 documented in this encounter Plan of Treatment Upcoming Encounters Date Type Department Care Team (Late st Contact Info) Description 08/01/2024 1:00 PM EDT Office Visit Hematology/Oncology at [address] [phone] Dmitry Bhatti MD [facility] DR HEMATOLOGY/[place] [address] Ellen Mcrae APRN [facility] [place] [address] 08/01/2024 1:30 PM EDT Infusion Hematology Oncology at [address] [phone] documented as of this encounter Visit Diagnoses Diagnosis 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 documented in this encounter Care Teams Sea Foam Kiss Maker Relationship Specialty Start Date End Date Jovon Sifuentes MD [address] [place] [address] PCP - General 09/30/10 09/10/21 documented as of this encounter
--- OUTSIDE RECORDS SUMMARY | 2024-05-18 11:28 | XMS_ITS | Encounter Summary ---
[place] [address] Care Team Providers Care Metalsmith Helper Name Role Phone Jovon Sifuentes MD Primary Care Provider Encounter Details Date Type Department Care Team (Late st Contact Info) Description 10/03/2018 Telephone [place] [phone] Leora Lucas Social History Tobacco Use Types Packs/Day Years [...] encounter Miscellaneous Notes * Telephone Encounter - Leora Lucas - 10/03/2018 9:48 AM EST Informed (per pt) to call medical records to see if they have received the letter from [facility] regarding they needing additional info about the inpatient services he received during 07/13/17 surgery and also to call Marina on [phone] if they have billing questions. documented in this encounter Plan of Treatment Upcoming Encounters Date Type Department Care Team (Late st Contact Info) Description 08/01/2024 1:00 PM EDT Office Visit Hematology/Oncology at [address] [phone] Dmitry Bhatti MD [facility] DR HEMATOLOGY/[place] [address] Ellen Mcrae APRN [facility] [place] [address] 08/01/2024 1:30 PM EDT Infusion Hematology Oncology at [address] [phone] documented as of this encounter Visit Diagnoses Not on filedocumented in this encounter Care Teams Metalsmith Helper Relationship Specialty Start Date End Date Jovon Sifuentes MD [address] [place] [address] PCP - General 09/30/10 09/10/21 documented as of this encounter
--- OUTSIDE RECORDS SUMMARY | 2024-05-18 11:28 | XMS_ITS | Encounter Summary ---
Author Organization [facility] [place] [address] Care Team Providers Care Application Software Developer Name Role Phone Jovon Sifuentes MD Primary Care Provider [phone] Encounter Details Date Type Department Care Team (Late st Contact Info) Description 02/10/2018 10:20 AM EDT Office [place] [address] Sriram Contreras MD [facility] [place] [address] Cancer of base of tongue Social History [...] Sign Reading Time Taken Comments Blood Pressure 104/57 02/10/2018 10:05 AM EDT Pulse 40 02/10/2018 10:05 AM EDT Temperature 36.6 ??C (97.8 ??F) 02/10/2018 10:05 AM E DT Respiratory Rate 18 02/10/2018 10:05 AM EDT Oxygen Saturation 99% 02/10/2018 10:05 AM EDT Inhaled Oxygen Concentration - - Weight 125.2 kg (276 lb) 02/10/2018 10:05 AM EDT Height 188 cm (6' 2.02) 02/10/2018 10:05 AM EDT Body Mass Index 35.42 02/10/2018 10:05 AM EDT documented in this encounter Progress Notes * Sriram Contreras MD - 02/10/2018 10:20 AM EDT [facility] [place] [facility] FOLLOW UP NOTE Jose Bee is a 67 y.o. 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 He reports that swallowing has been improving. He has no pain. He is not coughing up any blood and has not had any voice change. He has not detected any adenopathy or other concerns. He still reporting postnasal drip which she detects primarily on the left-hand side. He does have seasonal allergies. He denies any nasal obstructive symptoms. PROBLEM LIST Patient Active Problem List Diagnosis Code ??? Carcinoma of base of tongue C01 ??? Pulmonary embolism I26.99 ??? Benign prostatic hyperplasia N40.0 ??? Atrial fibrillation I48.91 ??? KORI on CPAP G47.33, Z99.89 ??? Adult BMI 30+ [id number] PAST MEDICAL HISTORY Past Medical History: Diagnosis [...] mouth as needed.) 30 tablet 1 ??? melatonin 5 mg Tablet Take by mouth nightly as needed. ??? tamsulosin (FLOMAX) 0.4 mg Capsule, Sust. Release 24 hr Take 0.4 mg by mouth daily. ??? [DISCONTINUED] bisacodyl (DULCOLAX) [address] 1 suppository rectally daily as needed (if no BM in 48 hours or per patient's routine). (Patient not taking: Reported on 02/10/2018) 60 suppository 3 ??? [DISCONTINUED] polyethylene glycol (MIRALAX) 17 gram Powder in Packet Take 17 g by mouth daily as needed. (Patient not taking: Reported on 02/10/2018) 14 each 0 No current facility-administered medications on file prior to visit. ALLERGIES Allergies Allergen Reactions ??? Ibuprofen CIS - Nausea/Vomiting ??? Clindamycin Other (See Comments) Memory issues. ROS Pertinent positive findings discussed above. No other findings on review of constitutional visual, cardiovascular, respiratory, gastrointestinal, genitourinary, musculoskeletal, dermatologic, neurological, psychiatric, endocrine, hematologic or immunologic systems. PHYSICAL EXAMINATION Wt Readings from Last 3 Encounters: 02/10/18 125.2 kg (276 lb) 01/25/18 126.8 kg (279 lb 9.6 oz) 12/16/17 131.1 kg (289 lb) General: Well developed, [...] the TelePack Unit and uploaded to the [employer] Lumber Straightener. Findings Nasal cavity scope of the left nasal cavity demonstrates a nasal septal deviation with a spur impinging on the middle turbinate. I do not see any evidence of rhinorrhea. Right nasal cavity examination is otherwise normal. Nasopharynx normal Oropharynx Tongue base well healed - no recurrence or changes when compared with prior Larynx S/p epiglottectomy with good reconstruction of edith-epiglottis. Normal vocal cords. Hypopharynx normal REVIEW OF IMAGES none ASSESSMENT/RECOMMENDATIONS No evidence of recurrence. Functionally doing quite well. Postnasal drip may be related to seasonalor perennial allergies or vasomotor rhinitis. I recommended sinus rinse kit to be used twice a day.He also takes Claritin which I think will also help. Return to clinic in 2 months. I appreciate the opportunity to be involved in Mr. Bee's care. SRIRAM CONTRERAS MD 02/10/2018 documented in this encounter Plan of Treatment Upcoming Encounters Date Type Department Care Team (Late st Contact Info) Description 08/01/2024 1:00 PM EDT Office Visit Hematology/Oncology at [address] [phone] Dmitry Bhatti MD [facility] DR HEMATOLOGY/[place] [address] Ellen Mcrae APRN [facility] [place] [address] 08/01/2024 1:30 PM EDT Infusion Hematology Oncology at [address] [phone] documented as of this encounter Visit Diagnoses Diagnosis 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 documented in this encounter Care Teams Application Software Developer Relationship Specialty Start Date End Date Jovon Sifuentes MD [address] [place] [address] PCP - General 09/30/10 09/10/21 documented as of this encounter
--- OUTSIDE RECORDS SUMMARY | 2024-05-18 11:28 | XMS_ITS | Encounter Summary ---
[place] [address] Care Team Providers Care Freight Hustler Name Role Phone Jovon Sifuentes MD Primary Care Provider [phone] Reason for Visit * Reason Comments Follow-up Encounter Details Date Type Department Care Team (Late st Contact Info) Description 11/11/2017 3:00 PM EST Office [place] [address] Sriram Contreras MD [facility] [place] [address] Larynx cancer Social History Tobacco Use Types Packs/Day [...] - - Weight 127 kg (280 lb) 11/11/2017 2:45 PM EST Height 190.5 cm (6' 3) 11/11/2017 2:45 PM EST Body Mass Index 35 11/11/2017 2:45 PM EST documented in this encounter Progress Notes * Isamar Interiano MD - 11/11/2017 3:00 PM EST [facility] [place] [facility] FOLLOW UP NOTE Jose Bee is a 66 y.o. 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 States sometimes he feels like he is able to swallow fine, other times he is not. Otherwise, no complaints. No new lumps or bumps. Gaining weight. No pain in his mouth or throat. PROBLEM LIST Patient Active Problem List Diagnosis Code ??? Carcinoma of base of tongue C01 ??? Pulmonary embolism I26.99 ??? Benign prostatic hyperplasia N40.0 ??? Atrial fibrillation I48.91 ??? KORI on CPAP G47.33, Z99.89 ??? Adult BMI 30+ [id number] ??? Head and neck cancer C76.0 ??? [...] to Visit Medication Sig Dispense Refill ??? UNABLE TO FIND Take 1 capsule by mouth nightly. Unisom ??? acetaminophen (TYLENOL) 325 mg Tablet Take 2 tablets by mouth every 4 hours. 30 tablet 1 ??? bisacodyl (DULCOLAX) [address] 1 suppository rectally daily as needed (if no BM in 48 hours or per patient's routine). 60 suppository 3 ??? polyethylene glycol (MIRALAX) 17 gram Powder in Packet Take 17 g by mouth daily as needed. 14 each 0 ??? chlorhexidine (PERIDEX) 0.12 [...] EXAMINATION Wt Readings from Last 3 Encounters: 11/11/17 127 kg (280 lb) 09/16/17 (!) 126.1 kg (278 lb) 08/30/17 (!) 132.6 kg (292 lb 4.8 oz) General: Well developed, no distress Head/face: [...] the TelePack Unit and uploaded to the [employer]. Findings Nasal cavity Normal Nasopharynx normal Oropharynx Tongue base well healed Larynx S/p epiglottectomy with good reconstruction of edith-epiglottis. Normal vocal cords. Hypopharynx normal REVIEW OF IMAGES MRI reviewed. No evidence of residual or recurrent disease. No obvious pathologic LNs. Official read pending ASSESSMENT/RECOMMENDATIONS No evidence of recurrence. Functionally doing quite well. Will arrange follow up in 6 weeks. If swallowing still not improved, may have him see speech pathology here. I appreciate the opportunity to be involved in Mr. Bee's care. ISAMAR INTERIANO MD 11/11/2017 * Sriram Contreras MD - 11/11/2017 3:00 PM EST Attending note: Patient seen and examined with the above resident. I have reviewed and agree with the history, physical, and assessment and plan. I was present and supervised the flexible fiberoptic laryngoscopy. MRI reviewed with no clear evidence of recurrence. RTC 4-6 weeks. Sriram Contreras MD FACS Otolaryngology - Head & Neck Surgery documented in this encounter Plan of Treatment Upcoming Encounters Date Type Department Care Team (Late st Contact Info) Description 08/01/2024 1:00 PM EDT Office Visit Hematology/Oncology at [address] [phone] Dmitry Bhatti MD [facility] DR HEMATOLOGY/[place] [address] Ellen Mcrae APRN [facility] [place] [address] 08/01/2024 1:30 PM EDT Infusion Hematology Oncology at [address] [phone] documented as of this encounter Visit Diagnoses Diagnosis Larynx cancer Malignant neoplasm of larynx, unspecified site documented in this encounter Care Teams Freight Hustler Relationship Specialty Start Date End Date Jovon Sifuentes MD [address] [place] [address] PCP - General 09/30/10 09/10/21 documented as of this encounter
--- OUTSIDE RECORDS SUMMARY | 2024-05-18 11:28 | XMS_ITS | Encounter Summary ---
Author Organization [facility] [place] [address] Care Team Providers Care Catering Administrative Assistant Name Role Phone Jovon Sifuentes MD Primary Care Provider [phone] Encounter Details Date Type Department Care Team (Late st Contact Info) Description 09/20/2017 Telephone Hematology [place] [address] Geovanna Deleon MD [facility] DR HEMATOLOGY/[place] [address] Social History Tobacco Use Types Packs/Day Years [...] encounter Miscellaneous Notes * Telephone Encounter - Geovanna Deleon MD - 09/20/2017 11:45 AM EST I returned Mr. Bee's call. He was recently seen by Dr. Grove for follow-up. There is no evidence of cancer recurrence. He will have a follow-up visit and PET/CT in 4-6 weeks. He wishes to switch his anticoagulant from enoxaparin to apixaban. His weight is now down to 126 kg. He still has ~10 day worth of enoxaparin supply. I recommend him to finish his 10 day- supply of enoxaparin, then switch back to apixaban 5 mg PO BID. I will see him back toward the end of 6 month of anticoagulation after his last PE ( mid January 2018) to determine duration of anticoagulation. Geovanna Deleon MD [facility] documented in this encounter Plan of Treatment Upcoming Encounters Date Type Department Care Team (Late st Contact Info) Description 08/01/2024 1:00 PM EDT Office Visit Hematology/Oncology at [address] [phone] Dmitry Bhatti MD [facility] DR HEMATOLOGY/[place] [address] Ellen Mcrae APRN [facility] [place] [address] 08/01/2024 1:30 PM EDT Infusion Hematology Oncology at [address] [phone] documented as of this encounter Visit Diagnoses Not on filedocumented in this encounter Care Teams Catering Administrative Assistant Relationship Specialty Start Date End Date Jovon Sifuentes MD [address] [place] [address] PCP - General 09/30/10 09/10/21 documented as of this encounter
--- OUTSIDE RECORDS SUMMARY | 2024-05-18 11:28 | XMS_ITS | Encounter Summary ---
[place] [address] Care Team Providers Care Admitting Manager Name Role Phone Jovon Sifuentes MD Primary Care Provider Encounter Details Date Type Department Care Team ([facility] Contact Info) Description 08/09/2018 Tele[place] [phone] Dina Alonzo RN Social History Tobacco Use [...] Telephone Encounter - Dina Alonzo RN - 08/09/2018 10:[address] Contreras, called patient to relay the results of the CT Chest and CT Neck from yesterday. Jose verbalizes good understanding. documented in this encounter Plan of Treatment Upcoming Encounters Date Type Department Care Team (Late Contact Info) Description 08/01/2024 1:00 PM EDT Office Visit Hematology/Oncology at [address] [phone] Dmitry Bhatti MD [facility] DR HEMATOLOGY/[place] [address] Ellen Mcrae APRN [facility] [place] [address] 08/01/2024 1:30 PM EDT Infusion Hematology Oncology at [address] [phone] documented as of this encounter Visit Diagnoses Not on filedocumented in this encounter Care Teams Admitting Manager Relationship Specialty Start Date End Date Jovon Sifuentes MD [address] [place] [address] PCP - General 09/30/10 09/10/21 documented as of this encounter
--- OUTSIDE RECORDS SUMMARY | 2024-05-18 11:28 | XMS_ITS | Encounter Summary ---
Author Organization [facility] [place] [address] Care Team Providers Care Enrichment Assistant Name Role Phone Jovon Sifuentes MD Primary Care Provider [phone] Encounter Details Date Type Department Care Team (Late st Contact Info) Description 08/30/2017 1:30 PM EDT Office Visit [place] [address] Geovanna Deleon MD [facility] HEMATOLOGY/[place] [address] Recurrent pulmonary embolism Social History Tobacco Use [...] Sign Reading Time Taken Comments Blood Pressure 118/57 08/30/2017 1:30 PM EDT Pulse 65 08/30/2017 1:30 PM EDT Temperature 36.6 ??C (97.9 ??F) 08/30/2017 1:30 PM ED T Respiratory Rate 16 08/30/2017 1:30 PM EDT Oxygen Saturation 95% 08/30/2017 1:30 PM EDT Inhaled Oxygen Concentration - - Weight 132.6 kg (292 lb 4.8 oz) 08/30/2017 1:30 PM EDT Height 191 cm (6' 3.2) 08/30/2017 1:30 PM EDT Body Mass Index 36.34 08/30/2017 1:30 PM EDT documented in this encounter Progress Notes * Geovanna Deleon MD - 08/30/2017 1:30 PM EDT [facility] [place], [place] [address] THROMBOSIS FOLLOW-UP DATE OF VISIT 08/30/2017 Patient Jose Bee 1950 REFERRING PHYSICIAN Zafar Madera MD PRIMARY CARE PHYSICIAN Jovon Sifuentes MD THROMBOSIS PROBLEM LIST 1. Cancer associated pulmonary embolism Tx: apixaban 2. Recurrent pulmonary embolism post surgery while on enoxaparin prophylactic dose 40 mg SQ once daily Tx: increase enoxaparin dose to 100 mg SQ BID to current date Thrombophilia: not performed Clinical risk factors: obesity, postop Resolved risk factor: cancer INTERIM history He returns for follow-up. In Interim, Mr. 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 He underwent a partial glossectomy and unilateral radical neck dissection on 07/13/2017. Postoperatively he was placed on enoxaparin at prevention dose 40 mg SQ once daily. On 07/20/2017 he developed multiple pulmonary emboli. It was thought that the enoxaparin dose may not be adequate for his morbid obesity. After diagnosis of recurrent PE, his enoxaparin was increased to 100 mg SQ BID. His anti-Xa level at steady state was checked which was in good range. He has remained on enoxaparin to current date. No evidence of bleeding. He wishes to come off enoxaparin and switches his anticoagulant back to oral apixaban. He has lost ~ 30 lbs since surgery and currently his weight has been stable. He is eating well without any dysphagia. He met with ENT team and the recommendation is to continue to observe. No chemo or radiation therapy is planned. He is scheduled to see Dr. Grove on 09/16/2017 for follow-up. PAST MEDICAL HISTORY Pulmonary embolism Tongue base [...] every 4 hours. 30 tablet 1 ??? enoxaparin (LOVENOX) 100 mg/mL Syringe Inject 1 mL subcutaneously 2 times daily. ??? chlorhexidine (PERIDEX) 0.12 % Mouthwash Take 15 mLs by mouth 2 times daily. 120 mL 0 ??? melatonin 5 mg Tablet Take by mouth nightly as needed. ??? tamsulosin (FLOMAX) 0.4 mg Capsule, Sust. Release 24 hr Take 0.4 mg by mouth daily. ??? albuterol 90 mcg/actuation HFA Aerosol Inhaler [...] visit. ADVERSE DRUG REACTIONS Allergies as of 08/30/2017 - Review Complete 08/05/2017 Allergen Reaction Noted ??? Ibuprofen ??? Clindamycin Other (See Comments) 04/27/2017 FAMILY HISTORY No family history of VTE Father of parkinson's disease in his 80. Mother of old age in her 90s. 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 Stable weight now Headache/lightheadedness/syncope No Sinus pain/pressure No Oral sores/lesions/bleeding No Sore throat/dysphagia Eating well. Still have some difficulty, overall improved Nosebleeds No Cough/SOB/chest pain/heart racing No Nausea/vomiting/dyspepsia No Abdominal pain No Diarrhea/constipation No Urinary pain, burning, incontinence No Hematuria No Penile discharge/bleeding No Skin rashes/ulcers No Back/joint pain/swelling Chronic knee pain, shoulder pain unchanged Leg swelling/pain/redness No Bruising/petechiae/bleeding/melena Bruise at enoxaparin injection site Sensory/motor No Polydipsia/polyuria/heat/cold intol No Lumps/bumps/swollen glands No Other No PHYSICAL EXAMINATION BP 118/57 (Patient Position: Sitting) Pulse 65 Temp 36.6 ??C (97.9 ??F) (Temporal) Resp 16 Ht (!) 191 cm (6' 3.2) Wt (!) 132.6 kg (292 lb 4.8 oz) SpO2 95% BMI 36.34 kg/m2 GENERAL: Well-appearing, articulate white male. HEENT: [...] apparent distress. LABORATORY STUDIES None RADIOGRAPHIC STUDIES CTA 07/20/2017 I viewed imaging independently. FINDINGS: Pulmonary arteries: There are multiple long segment pulmonary emboli within the right upper lobe pulmonary artery branches. Additional smaller PE are identified in right lower lobe segmental pulmonary arteries. ?? Interventricular septum flattening or bowing: Absent Venous contrast reflux: N/A ?? Other cardiovascular structures: No significant findings. ?? Pulmonary parenchyma: Moderate bibasilar airspace process and additional multifocal areas of groundglass opacity and consolidation. New 5 mm nodular opacity abutting major fissure likely benign. Airways: No significant findings. Pleura: Small effusions. Lymph nodes: No significant findings. Other mediastinal structures: No significant findings. Upper abdomen: Stable pelviectasis versus bilateral parapelvic cysts in both kidneys, left greater than right. Stable likely right upper pole cyst. Skeletal structures: Stable severe degenerative changes thoracolumbar spine. ?? IMPRESSION Multiple right PE as described above. IMPRESSION Jose Bee is a 66 y.o. man with history of cancer associated pulmonary embolism and recurrent postoperative pulmonary embolism who is here for follow- up to discuss anticoagulation management. In brief, Mr. Bee was diagnosed with [...] mgSQ BID with confirmatory adequate anti-Xa level. He has been doing fine on enoxaparin at this current dose without any bleeding issues. His shortness of breath has overall improved, but not back to baseline. There is no further plan for additional treatment for his cancer. Mr. Bee wishes to come off enoxaparin and switch back to apixaban. He is now ~ 5-6 weeks out from his surgery. His weight is down to ~ 130 kg. Although he has never failed apixaban, I would prefer to wait for another 2 weeks until he is further out from his surgery to allow more time for recovery and until he sees Dr. Grove for follow-up. If he continues to do clinically well without anyevidence of active cancer and without significant weight gain, I am happy to consider switching from enoxaparin to apixaban at that time. I would recommend to complete at least 6 months of anticoagulation after his last pulmonary embolism. He is willing to stay on enoxaparin until he sees Dr. Grove and he will call me for phone follow-up. PLAN/RECOMMENDATIONS 1. Continue enoxaparin 100 mg SQ BID for recurrent pulmonary embolism - will consider switching from enoxaparin to apixaban 5 mg PO BID in ~ 2 weeks after his appointment with Dr. Grove - plan to complete 6 months of anticoagulation after last PE as long as there is no evidence of active malignancy 2. No aspirin or NSAIDs while on anticoagulant Jose Bee had the opportunity to ask questions and indicated that all his questions were answered to his satisfaction. He will call me mid Sep 2017 after his f/u appointment with Dr. Grove. I will see him back toward the end of 6 months of anticoagulation course. Geovanna Deleon MD [facility] documented in this encounter Plan of Treatment Upcoming Encounters Date Type Department Care Team (Late st Contact Info) Description 08/01/2024 1:00 PM EDT Office Visit Hematology/Oncology at [address] [phone] Dmitry Bhatti MD [facility] DR HEMATOLOGY/[place] [address] Ellen Mcrae APRN [facility] [place] [address] 08/01/2024 1:30 PM EDT Infusion Hematology Oncology at [address] [phone] documented as of this encounter Visit Diagnoses Diagnosis Recurrent pulmonary embolism Other pulmonary embolism and infarction documented in this encounter Care Teams Enrichment Assistant Relationship Specialty Start Date End Date Jovon Sifuentes MD [address] [place] [address] PCP - General 09/30/10 09/10/21 documented as of this encounter
--- OUTSIDE RECORDS SUMMARY | 2024-05-18 11:30 | XMS_ITS | Encounter Summary ---
Author Organization [facility] Address [facility] [place] [address] Care Team Providers Care Tunnel Worker Name Role Phone Jovon Sifuentes MD Primary Care Provider [phone] Reason for Visit * Auth/Cert Specialty Diagnoses / Procedures Referred By Contac t Referred To Contact Diagnoses Head and neck cancer head and neck cancer Procedures PRO PARTIAL REMOVAL OF PHARYNX PRO UNLISTED PROCEDURE LARYNX PRO PART EXC TONGUE, UNILAT RAD NECK PRO STEREOTACTIC CPTR ASSTD PX CRANIAL, EXTRADURAL PHARYNGECTOMY, LIMITED (WRVU 19.13) LARYNGOSCOPY, MICRO, LASER EXCISION (WRVU 12.14) @GLOSSECTOMY, PARTIAL,WITH UNILATERAL RADICAL NECK DISSECTION (WRVU 30.14) STEREOTACTIC COMPUTER-ASSTD NAVIGATIONAL CRANIAL EXTRADURAL (WRVU 3.18) Referral ID Status Reason Start Date Expiration Date Visits Re quested Visits Authorized [id number] 1 1 Encounter Details Date Type Department Care Team (Latest Contact Info) Description 07/13/2017 6:04 AM EDT - 07/29/2017 1:35 PM EDT Hospital Encounter [address] [place] [id number] Sriram Contreras MD [facility] [place] [address] Persistent atrial fibrillation; QT prolongation; Other pulmonary embolism without acute cor pulmonale Discharge Disposition: [facility] Social History Tobacco Use Types Packs/Day Years [...] Sign Reading Time Taken Comments Blood Pressure 116/73 07/29/2017 12:00 PM EDT Pulse 77 07/26/2017 11:15 AM EDT Temperature 37.1 ??C (98.8 ??F) 07/29/2017 1 2:00 PM EDT Respiratory Rate 18 07/29/2017 12:0 0 PM EDT Oxygen Saturation 20% 07/29/2017 12: 00 PM EDT Inhaled Oxygen Concentration - - Weight 127.9 kg (281 lb 15.5 oz) 07/28/2017 9:00 AM EDT Height 191.8 cm (6' 3.51) 07/17/2017 1 0:00 PM EDT Body Mass Index 34.77 07/17/2017 10:00 PM EDT documented in this encounter Discharge Summaries * Celso Mejía MD - 07/29/2017 9:32 AM EDT OTOLARYNGOLOGY - HEAD & NECK SURGERY DISCHARGE SUMMARY General Info Patient Name: Jose Laws Patient Age: 66 y.o. 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 Operations/Major Procedures: Procedure(s) (LRB): LARYNGOSCOPY, WITH MICROSCOPE (WRVU 2.57) (N/A) History of Presentation: The below history was copied from the patients clinical visit on 06/17/2017 66 yo M with 2-3 mo hx of R throat discomfort with referred otalgia.??(prior consult with Dr Madera 2007 for globus sensation, with office workup showing nothing; treated for GERD.) ??Noted by Dr Conrad to have R base of tongue and tonsil??lesions??and was due to be taken to the OR for endoscopy but developed acute PE and referred back to Dr Madera who noted R neck with 1.5 cm node; office FOL shows subtle R BOT fullness. Taken to the OR??for EUA: ?? Findings: Exophytic tumor at right tongue base extending onto tonsil and lateral pharyngeal wall laterally and extending onto lingual surface epiglottis posteriorly. Tumor approximately 2.5 cm in diameter, does not appear to cross midline. Patient staged as a T2N0M0 SCCa. ?? Had recent staging PET/CT, however which demonstrated possible uptake in bilateral cervical nodes: Reason for Admission: Jose Laws??is a 66 y.o.??male??presented with exophytic tumor T2N0M0 SCCa at right tongue base s/p transoral laser microsurgery resection of right base of tongue cancer and right neck dissection. Hospital Course: The patient tolerated the above procedure well and was admitted post-operatively for routine care in the ICU. He was extubated in the ICU POD4 and then kept in the ICU on high-flow nasal cannula. He had episodes of delirium in the ICU. Piperacillin-tazobactam started for pneurmonia. After being maintained on high- flow nasal cannula, patient had an episode of respiratory distress with pO2 to 66 and had to be re-intubated on POD6. He was subsequently found to have R PE. Heparin gtt started. He was successfully extubated on POD10. Hematology consulted and recommended subcutaneous therapeutic dosing of lovenox (100mg BID) for 3-6 months. Therapeutic levels of anticoagulant were confirmed with Anti Xa level. Lower extremity duplex negative for DVT. Nutrition was initially maintained via nasogastric feedings, as patient was unable to tolerate PO. He was cleared for PO intake by speech pathology on 07/27/17, and diet was upgraded to dysphagia softdiet with nectar thick liquids, with aspiration precautions, medications to be crushed in applesauce when possible. Surgical sites have healed well. Neck sutures were removed prior to discharge. 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 His case will be reviewed at Head and Neck Tumor Board for further treatment recommendations and we will notify patient of these recommendations. He was evaluated by physical and occupational therapies, and recommendation was made for a brief inpatient rehabilitation stay prior to discharge to home, due to ADL and functional mobility impairments related to deconditioning. Patient was deemed medically stable for discharge to rehab on day of discharge. Prior to discharge his pain was controlled on oral pain meds and he was tolerating a dysphagia soft diet with nectar thickened liquids. Physical Exam on Discharge: General: NAD, non-ill appearing Face: Symmetric without dysmorphic features Eyes: EOMI, conjunctiva healthy Ears: Auricles symmetric, no lesions Nose: Grossly normal appearance Oral Cavity/Pharynx: Mucosa is pink, oropharynx symmetric. Tongue soft, mobile. Neck: Soft, trachea midline, right neck incision is well healing, open to air. Chest: CTAB, non-labored breathing. Neuro: Responds to questions, moves extremities spontaneously. Alert & oriented with fluent speech. Lab Data: Recent Labs 07/29/17 0341 07/28/17 0347 07/27/17 0245 07/26/17 2129 WBC 7.5 8.0 12.4* < > -- HGB 12.7* 13.4* 14.3 < > -- HCT 38.1* 40.3* 42.0 < > -- PLATELET 281 271 288 < > -- PTT -- -- 92* -- 90* NA 139 140 139 < > -- K 3.9 3.6 3.7 < > -- CL 102 101 100 < > -- CO2 24 24 23 < > -- BUN 16 19 22* < > -- CREATININE 0.95 0.96 0.92 < > -- GLUCOSE 95 110 169 < > -- CALCIUM 8.9 8.9 9.4 < > -- MAGNESIUM -- 0.86 0.79 -- -- PHOS -- 3.7 4.3 -- -- < > = values in this interval not displayed. Imaging and Other Studies: Ct Neck Soft Tissue W Contrast (generic) Result Date: 07/13/2017 EXAMINATION: CT NECK SOFT TISSUE W CONTRAST (GENERIC) CLINICAL HISTORY: Intraoperative CT for navigation TECHNIQUE: CT acquired of the upper neck for intraoperative navigation after administration ofintravenous contrast. COMPARISON: Neck CT 03/18/[address] 2016. FINDINGS: The right base of tongue mass now appears across midline and there is increased extent along the right lateral pharyngeal wall. Increased thickening and abnormal enhancement of the epiglottis. Artifact makes evaluation of the aryepiglottic folds limited. No lymphadenopathy within the partially imaged neck. CT for intraoperative guidance. Increased extent of neoplasm as described above. Pet Ct Standard Skull Base To Mid-thigh Result Date: 06/17/2017 EXAMINATION: PET CT STANDARD SKULL BASE TO MID-THIGH CLINICAL HISTORY: head/neck cancer, initial staging exam TECHNIQUE: Following IV injection of 42-oulowt-5-deoxyglucose (FDG) a standard uptake of approximately 60 minutes, a noncontrast CT scan followed by a PET scan were acquired from the top ofthe head to mid thighs. The noncontrast CT was used for anatomic localization and photon attenuation correction of the PET scan. No enteric contrast administered. Blood glucose level: 82 (mg/dL) FDG dose: 17.2 mCi COMPARISON: Outside institution CT neck 03/18/2017, CT abdomen and pelvis 03/26/2017, CTA chest 03/29/2017 FINDINGS: HEAD/NECK: FDG avid irregular soft tissue mass seen at the right base of tongue (axial image 68). Several small FDG avid prominent bilateral cervical lymph nodes, for example see axial image 67 of the head and neck series (just lateral to the right sternocleidomastoid muscle and posterior to the left submandibular gland). Normal activity throughout the head. CHEST: Normal activity in all soft tissue regions. Tiny, sub-4 mm right upper lobe subpleural pulmonary nodules are unchanged, likely below the sensitivity of PET. CT visualized 6 mm right middle lobe nodule (axial image 88), not definitely visualized on the prior chest CT (03/29/2017), however, may have been obscured by the subsegmental atelectasis. CT visualized bibasilar ground glass opacities most consistent with atelectasis and multivessel coronary atherosclerotic calcifications. ABDOMEN/PELVIS: Normal activity in all soft tissue regions. No significant interval CT visualized findings, including again noted approximately 3 cm right upper pole renal cyst, punctate nonobstructive calculus within themidpole the left kidney, multiple bilateral parapelvic renal cysts, and tiny periumbilical fat-containing hernia. Surgical clips also seen within the scrotum. SKELETON/EXTREMITIES: Normal marrow activity in all regions of the axial and visualized appendicular skeleton. Anterior wedging at the thoracolumbar junction resulting in kyphotic curvature as well as multilevel degenerative changes noted. 1. Right base of tongue hypermetabolic mass consistent with known primary malignancy. 2. Several mildly FDG avid prominent bilateral cervical lymph nodes, suspicious for jacqueline metastases. 3. Indeterminate CT visualized 6 mm right middle lobe nodule, likely below the sensitivity of PET, attention onfollow-up dedicated breath-hold chest CT in 6 months. 4. No additional suspected sites of distant metastatic disease. Thank you for referring this patient to [facility]. I have personally reviewed the image(s) and the residents interpretation and agree with the findings, Lizy Faganumair at 06/17/2017 3:54 PM Xr Chest Pa Or Ap 1 View Result Date: 07/13/2017 EXAMINATION: XR CHEST PA OR AP 1 VIEW CLINICAL HISTORY: check ETT and DHT placement TECHNIQUE: Portable 45 degree AP COMPARISON: None FINDINGS: Tip of endotracheal tube is 6 cm above the shelli, mid trachea, and projects over T3 vertebra. Dobbhoff tube tip is in the gastric body. No kinking. Hypoinflated lungs, platelike atelectasis right lung base. No dense airspace consolidation. ET tube in mid trachea. Dobbhoff tube tip in the gastric body with no redundancy. Discharge Info Discharge Condition: Stable Discharge to: Inpatient rehabilitation Discharge Medications: Your Medications New Medications Dose Details acetaminophen 325 mg Tab Commonly known as: TYLENOL Take 2 tablets by mouth every 4 hours. 650 mg Quantity: 30 tablet Refills: 1 albuterol 90 mcg/actuation Hfaa Inhale 6 puffs into the lungs every 4 hours as needed for Wheezing. Use with spacer 6 puff Quantity: 1 Inhaler Refills: 1 bisacodyl 10 mg Supp Commonly known as: DULCOLAX Place 1 suppository rectally daily as needed (if no BM in 48 hours or per patient's routine). 10 mg Quantity: 60 suppository Refills: 3 chlorhexidine 0.12 % Mwsh Commonly known as: PERIDEX Take 15 mLs by mouth 2 times daily. 15 mL Quantity: 120 mL Refills: 0 enoxaparin 100 mg/mL Syrg Commonly known as: LOVENOX Inject 1 mL subcutaneously 2 times daily. 100 mg Refills: 0 polyethylene glycol 17 gram Pwpk Commonly known as: MIRALAX Take 17 g by mouth daily as needed. 17 g Quantity: 14 each Refills: 0 Continued medications, unchanged Dose Details melatonin 5 mg Tab Take by mouth nightly as needed. Refills: 0 tamsulosin 0.4 mg Cp24 Commonly known as: FLOMAX Take 0.4 mg by mouth daily. 0.4 mg Refills: 0 STOPPED Medications CIALIS 10 mg Tab Generic drug: tadalafil ELIQUIS 5 mg Tab Generic drug: apixaban glucosamine sulfate 500 mg Tab Updated Allergies/ADRs: Allergies Allergen Reactions ??? Ibuprofen CIS - Nausea/Vomiting ??? Clindamycin Other (See Comments) Memory issues. Info for Patient Patient Instructions Instructions for Patient at Discharge: What to expect: You will have soreness which will improve over the next several days. The area around the incision may be numb. This should recover over the next few months. Medications: Pain Control - use acetaminophen (Tylenol) and/or ibuprofen (Motrin, Advil) as needed. Incision Care: Your incision was closed with sutures/crystal, which were removed prior to discharge. You may get the area wet and pat dry (it is okay to shower). Do not submerge the incision for at least 2 weeks. Care of neck incisions: This is to be done daily: Apply a light coat of antibiotic ointment (such as Bacitracin) to the incisions. You may leave the incisions exposed. When you are sleeping, keep your head elevated with an extra pillow under the back and two pillows under the head - this will minimize any swelling in the face and neck area. Do this for the coming week. Activity: A good rule of thumb is if it hurts don't do it. Keep your head elevated when lying flat. No heavy lifting or strenuous activity for one to two weeks. No smoking, this is important for wound healing. Don't take aspirin or blood thinner until OK'd by your physician. You should not drive a car while taking prescription pain medications or while you are too sore to react quickly. Diet: Dysphagia soft with nectar thick liquids. You will be evaluated by speech therapy at your rehabilitation facility for possible diet progression. Follow this diet until cleared for advancement by your speech therapist. Sit upright for all meals. Crush pills in applesauce when possible. Oral Care: Rinse your mouth out well with water after eating, then use the prescription mouthwash (Peridex/Chlorhexidine). You should also use this mouthwash first thing in the morning and just before bedtime. Do this for 4 weeks post surgery. Other: Continue the lovenox (blood thinner) injections for the coming 3-6 months. You will see Hematology in follow-up in 3 months to discuss this further. You should call your doctor if you develop: -Increasing pain and redness -Inreasing drainage from the wound -Increased swelling at the incision site -Fever > 38.5Celsius or 101 Fahrenheit -Bleeding -Breathing problems -Clear drainage from nose or ear -Increased dizziness or balance changes Contact: -You can reach the ENT clinic at [phone] for appointment questions. -The ENT triage nurse is available at [phone] -For urgent issues during evenings and weekends the ENT resident concrete floater can be reached through [facility] turning machine set up operator at [phone] Follow Up: You will need to follow up with Dr. Contreras's team in 10-14 days. This appointment has been requested. You will be notified once it is scheduled, if you do not already see it below. If you do not hear from us in a timely manner, please call to receive your date and time. Your Hematology appointment is scheduled below. Currently Scheduled Appointments and VNA instructions: Future Appointments and Orders Future Appointments Provider Department Dept Phone 08/30/2017 1:30 PM Geovanna Deleon MD [facility] [phone] General Instructions None __ Primary Care Doctor: Jovon Sifuentes MD [phone] Signed: Celso Mejía MD 07/29/2017 documented in this encounter Discharge Instructions * Patient Instructions* Celso Mejía MD - 07/29/2017 7:49 AM EDT Instructions for Patient at Discharge: What to expect: You will have soreness which will improve over the next several days. The area around the incision may be numb. This should recover over the next few months. Medications: Pain Control - use acetaminophen (Tylenol) and/or ibuprofen (Motrin, Advil) as needed. Incision Care: Your incision was closed with sutures/crystal, which were removed prior to discharge. You may get the area wet and pat dry (it is okay to shower). Do not submerge the incision for at least 2 weeks. Care of neck incisions: This is to be done daily: Apply a light coat of antibiotic ointment (such as Bacitracin) to the incisions. You may leave the incisions exposed. When you are sleeping, keep your head elevated with an extra pillow under the back and two pillows under the head - this will minimize any swelling in the face and neck area. Do this for the coming week. Activity: A good rule of thumb is if it hurts don't do it. Keep your head elevated when lying flat. No heavy lifting or strenuous activity for one to two weeks. No smoking, this is important for wound healing. Don't take aspirin or blood thinner until OK'd by your physician. You should not drive a car while taking prescription pain medications or while you are too sore to react quickly. Diet: Dysphagia soft with nectar thick liquids. You will be evaluated by speech therapy at your rehabilitation facility for possible diet progression. Follow this diet until cleared for advancement by your speech therapist. Sit upright for all meals. Crush pills in applesauce when possible. Oral Care: Rinse your mouth out well with water after eating, then use the prescription mouthwash (Peridex/Chlorhexidine). You should also use this mouthwash first thing in the morning and just before bedtime. Do this for 4 weeks post surgery. Other: Continue the lovenox (blood thinner) injections for the coming 3-6 months. You will see Hematology in follow-up in 3 months to discuss this further. You should call your doctor if you develop: -Increasing pain and redness -Inreasing drainage from the wound -Increased swelling at the incision site -Fever > 38.5Celsius or 101 Fahrenheit -Bleeding -Breathing problems -Clear drainage from nose or ear -Increased dizziness or balance changes Contact: -You can reach the ENT clinic at [phone] for appointment questions. -The ENT triage nurse is available at [phone] -For urgent issues during evenings and weekends the ENT resident concrete floater can be reached through [facility] turning machine set up operator at [phone] Follow Up: You will need to follow up with Dr. Contreras's team in 10-14 days. This appointment has been requested. You will be notified once it is scheduled, if you do not already see it below. If you do not hear from us in a timely manner, please call to receive your date and time. Your Hematology appointment is scheduled below. Currently Scheduled Appointments and VNA instructions: Future Appointments and Orders Future Appointments Provider Department Dept Phone 08/30/2017 1:30 PM Geovanna Deleon MD [facility] [phone] documented in this encounter Medications at Time of Discharge Medication Sig Dispensed Refills Start Date End Date acetaminophen (TYLENOL) 325 mg Tablet Take 2 tablets by mouth every 4 hours. 30 tablet 1 07/29/2017 tamsulosin (FLOMAX) 0.4 mg Capsule, Sust. Release 24 hr Take 0.4 mg by mouth daily. albuterol 90 mcg/actuation HFA Aerosol Inhaler Inhale 6 puffs into the lungs every 4 hours as needed for Wheezing. Use with spacer 1 Inhaler 1 07/29/2017 09/16/2017 bisacodyl (DULCOLAX) [address] 1 suppository rectally daily as needed (if no BM in 48 hours or per patient's routine). 60 suppository 3 07/29/2017 02/10/2018 enoxaparin (LOVENOX) 100 mg/mL Syringe Inject 1 mL subcutaneously 2 times daily. 07/29/2017 11/11/2017 polyethylene glycol (MIRALAX) 17 gram Powder in Packet Take 17 g by mouth daily as needed. 14 each 07/29/2017 02/10/2018 chlorhexidine (PERIDEX) 0.12 % Mouthwash Take 15 mLs by mouth 2 times daily. 120 mL 07/29/2017 12/16/2017 melatonin 5 mg Tablet Take by mouth nightly as needed. 04/14/2018 documented as of this encounter Progress Notes * Radha Colon RN - 07/29/2017 1:35 PM EDT Patient Name: Jose Laws Patient Age: 66 y.o. Birthdate: 1950 Admit date: 07/13/2017 Attending Physician: No att. providers found Jose Laws discharged to [facility] by private car with Spouse. All belongings sent with patient. DONNA removed, incision healing well, no significant drainage, no dehiscence, no significant erythema, skin free from pressure ulcers. Discharge instructions given to . Report called to Vidhi at [facility] @ [phone]. * Alexus Soler RN - 07/29/2017 11:38 AM EDT Patient accepts bed at [facility]. Spoke with Patient and in regards to transportation. will provide transportation to [facility]. Adrienne Soler RN Care Management * Lexy Scott Jaclyn - 07/29/2017 10:57 AM EDT Office of Care Management/[place] [employer] Patient Name: Jose Laws : 1950 Patient has been offered a [facility] bed at [facility]. The patient will be transported by private transportation. No MD to MD report necessary Please call Nursing Report to , ask for Vidhi. Info to accompany patient: Narcotic Prescriptions Copies of Medication Administration Records and IV sheets for past 10 days. Plan: [place] [employer] will be available to the patient and Manager Presentation-RN and/or Social Workerfor further assistance. Patient will be discharged to: [facility] [address] [place] [address] Lexy Scott, [place] [employer] * Luana Henry RN - 07/29/2017 7:00 AM EDT Patient arrived via bed to rm 514, oob sitting in chair. Aox4, calling . Denies pain. Plan for discharge today pending bed. 1 assist to bathroom. Voids with out difficulty. Carmen to floor and call srinivasan system. Would like to take a shower and have his CPAP cleaned. Will report to oncoming RN/CONCEPCION. * Kayley Chris RCP - 07/29/2017 4:40 AM EDT Patient was compliant with home CPAP usage tonight. * Anay Diallo RN - 07/28/2017 3:40 PM EDT Manager Presentation Follow Up Note Patient plan of care discussed in multidisciplinary rounds. Met with patient and to assess continuing care and discharge needs. Continues to require hospitalization for Head and neck cancer. Discharge plan to snf when medically ready. Manager Presentation to follow with team and family to assist with discharge needs when patient ready for discharge. Anay Diallo RN Case Management for [place] [phone] * Celso Mejía MD - 07/28/2017 7:04 AM EDT OTOLARYNGOLOGY - HEAD & NECK SURGERY DAILY PROGRESS NOTE Name: Jose Laws Age/Sex: 66 y.o. male Attending: Sriram Contreras MD Hospital Day: 16 12 Days Post-Op Patient ID/Reason for Admission Jose Laws??is a 66 y.o.??male??presented with exophytic tumor T2N0M0 SCCa at right tonguebase s/p transoral laser microsurgery resection of right base of tongue cancer and right neck dissection on 07/13/2017 Interval History -Speech therapy recommended advancing diet to puree with honey thickened liquids, tolerating well. -Heparin gtt stopped yesterday, lovenox started per heme recs. -Bilateral lower extremity duplex for DVT was negative, see below. -No events overnight. -No complaints this morning. Vitals Last value 24hr Range Temperature: 36.6 ??C (97.9 ??F) Temp: [36.6 ??C (97.9 ??F)-36.9 ??C (98.4 ??F)] Heart Rate: 77 Heart Rate: -- Blood Pressure: 110/66 BP: (97-120)/(55-91) Respiratory Rate: 20 Resp: [16-20] SpO2: 94 % SpO2: [93 %-97 %] Intake & Output Intake/Output Summary (Last 24 hours) at 07/28/17 0705 Last data filed at 07/28/17 0500 Gross per 24 hour Intake 669 ml Output 325 ml Net 344 ml Physical Exam General: NAD, non-ill appearing Face: Symmetric without dysmorphic features Eyes: EOMI, conjunctiva healthy Ears: Auricles symmetric, no lesions Nose: Grossly normal appearance Oral Cavity/Pharynx: Mucosa is pink, oropharynx symmetric Neck: Soft, trachea midline, right neck incision is well healing, dressing c/d/i. Chest: CTAB, non-labored breathing. Neuro: Responds to questions, moves extremities spontaneously. Labs Recent Labs 07/28/17 0347 07/27/17 0245 07/26/17 2129 WBC 8.0 12.4* -- HGB 13.4* 14.3 -- HCT 40.3* 42.0 -- PLATELET 271 288 -- PTT -- 92* 90* NA 140 139 -- K 3.6 3.7 -- CL 101 100 -- CO2 24 23 -- BUN 19 22* -- CREATININE 0.96 0.92 -- GLUCOSE 110 169 -- CALCIUM 8.9 9.4 -- MAGNESIUM 0.86 0.79 -- PHOS 3.7 4.3 -- Imaging Bilateral lower extremity duplex for DVT, 07/27/17 RIGHT: Patent common femoral vein and popliteal vein with spontaneous, respirophasic Doppler waveforms that respond normally to augmentation maneuvers. The common femoral vein, saphenofemoral junction, femoral vein through the thigh and popliteal vein are fully compressible. Patent posterior tibial and peroneal veins with no evidence of thrombus. LEFT: Patent common femoral vein and popliteal vein with spontaneous, respirophasic Doppler waveforms that respond normally to augmentation maneuvers. The common femoral vein, saphenofemoral junction, femoral vein through the thigh and popliteal vein are fully compressible. Patent posterior tibial and peroneal veins with no evidence of thrombus. Interpretation: RIGHT: ??No evidence of lower extremity deep venous thrombosis. LEFT: ??No evidence of lower extremity deep venous thrombosis. Comparison: ??No previous study in our vascular lab database for comparison. 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 POD#16. He continues to do well, off the heparin gtt, now on lovenox (appreciate heme recs). PT recommends inpatient rehab. 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 Neurologic:??Pain controlled with PO??acetaminophen, scheduled. Cardiovascular:??Occasional bradycardia, PRN atropine ordered for HR<40, will continue to monitor. PRN BP and HR meds. History of??A-fib, previously on diltiazem drip.?? Pulmonary: CPAP while sleeping. CT-PE showed??pulmonary embolism, started on heparin drip, now stopped and lovenox started. Albuterol PRN. Gastrointestinal:??On puree diet since yesterday, per speech therapy recs, tolerating well. Zofran d/clay for long QT. Genitourinary: ??Iqbal discontinued, voiding.Home Flomax restarted. Musculoskeletal: PT/OT, inpatient rehab recommended after discharge. Nutrition:??On puree diet, tolerating well. Infectious Disease:?Peridex; Pip-Tazo course for PNA finished yesterday. Hematology: ??Leukocytosis resolved. Heparin gtt stopped, now on Lovenox 100mg BID. Endocrine:?SSI, not using. Will d/c if continues not requiring. Prophylaxis:??, SCD; PPI Disposition: Floor status, Full Code Discharge:??Plan for d/c tomorrow; PT recommends inpatient rehab; Follow-up ENT with Dr. Contreras TBD __ Celso Mejía MD, PGY1 07/28/17 7:05 AM Pager: [phone] * Anay Diallo RN - 07/27/2017 2:44 PM EDT Based on discussions with the multi-disciplinary healthcare team, the patient would benefit from skilled level of care at discharge. ?? I have met with the patient/front office representative to discuss discharge planning needs. I have provided the [facility], Office of Care Management letter from the Station Captain pertaining to rehab referrals. I have also provided a letter describing our affiliations within the [facility] and educated them about their right to choose where referrals are placed. ?? I reviewed the different levels of rehab including SNF, swing, acute and LTAC with the patient/front office representative. ?? The patient/front office representative has been provided a list of facilities within their preferred geographic area. ?? I have requested that the patient/front office representative provide at least three choices for referral. ?? The patient/front office representative have requested referrals to: 1. [facility] ?? PHONE: [phone] FAX: [phone].. 2. [facility] [address] [place] [address] ?? 3. [facility] (S[facility]) [address] [place] [id number] ? Expected date of discharge: TBD Note routed to [place] Tower Loader who will communicate referrals to facilities and provide any required information. * Viviane Mcclendon RN - 07/27/2017 10:00 AM EDT Images from the original note were not included. Arrived to assess PIV site with previous heparin administration. Hand is slightly swollen, patient has no complaints of pain at site. Please see attached pictures: * Celso Mejía MD - 07/27/2017 7:01 AM EDT OTOLARYNGOLOGY - HEAD & NECK SURGERY DAILY PROGRESS NOTE Name: Jose Laws Age/Sex: 66 y.o. 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 -Iqbal taken out at 5pm. -On zosyn for PNA, day 05/14. -On heparin drip 2750 units/hr. -No acute events overnight. Vitals Last value 24hr Range Temperature: 36.6 ??C (97.9 ??F) Temp: [36.6 ??C (97.9 ??F)-37 ??C (98.6 ??F)] Heart Rate: 77 Heart Rate: [77] Blood Pressure: 117/72 BP: (108-148)/(70-88) Respiratory Rate: 18 Resp: [14-20] SpO2: 94 % SpO2: [92 %-95 %] Intake & Output Intake/Output Summary (Last 24 hours) at 07/27/17 0701 Last data filed at 07/27/17 0601 Gross per 24 hour Intake 1201 ml Output 1525 ml Net -324 ml Physical Exam General: NAD, non-ill appearing Face: Symmetric without dysmorphic features Eyes: EOMI, conjunctiva healthy Ears: Auricles symmetric, no lesions Nose: Grossly normal appearance Oral Cavity/Pharynx: Mucosa is pink, oropharynx symmetric Neck: Soft, trachea midline, right neck incision is well healing, dressing c/d/i. Chest: non-labored breathing. Neuro: Responds to questions, moves extremities spontaneously. Labs Recent Labs 07/27/17 0245 07/26/17 2129 07/26/17 0330 07/25/17 0437 WBC 12.4* -- -- 12.4* -- 12.8* HGB 14.3 -- -- 15.2 -- 14.0 HCT 42.0 -- -- 44.1 -- 40.3* PLATELET 288 -- -- 253 -- 241 PTT 92* 90* < > 60* < > 122* NA 139 -- -- 141 -- 140 K 3.7 -- -- 3.8 < > 3.6 CL 100 -- -- 102 -- 103 CO2 23 -- -- 25 -- 24 BUN 22* -- -- 18 -- 14 CREATININE 0.92 -- -- 0.85 -- 0.81 GLUCOSE 169 -- -- 123 -- 120 CALCIUM 9.4 -- -- 9.2 -- 8.8 MAGNESIUM 0.79 -- -- -- -- 0.83 PHOS 4.3 -- -- -- -- -- < > = values in this interval not displayed. Imaging EXAMINATION: CTA chest for pulmonary arteries, 07/20/17 ? CLINICAL HISTORY: acute respiratory decompensation s/p ENT surgery ? TECHNIQUE: 3 mm thick axial contiguous sections were obtained through the chest via helical acquisition after the intravenous administration of 95 cc of Omnipaque-350. Thin-section reconstructions as well as coronal and sagittal MIP reformatted images were generated to aid in evaluation. ? COMPARISON: 03/29/2017 ? FINDINGS: Pulmonary arteries: There are multiple long segment pulmonary emboli within the right upper lobe pulmonary artery branches. Additional smaller PE are identified in right lower lobe segmental pulmonary arteries. ? Interventricular septum flattening or bowing: Absent Venous contrast reflux: N/A ? Other cardiovascular structures: No significant findings. ? Pulmonary parenchyma: Moderate bibasilar airspace process and [...] structures: Stable severe degenerative changes thoracolumbar spine. ? IMPRESSION Multiple right PE as described above. Findings discussed with Dr. 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 POD#15. Extubated on 07/24 and continues to do well from respiratory standpoint. Continues Heparin gtt for multiple RUL PE. Continues Zosyn for PNA, last day is today. Heme consulted for anti-coagulation in setting of PE. 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 Neurologic:??Pain controlled with liquid acetaminophen, scheduled, switched to IV due to no enteralaccess after Dobhoff fell out. Will switch to via DHT once new one in place. Cardiovascular:??Occasional bradycardia, PRN atropine ordered for HR<40, will continue to monitor. PRN BP and HR meds. History of A-fib, previously on diltiazem drip. Pulmonary: Extubated on room air 06/23. CPAP while sleeping. CT-PE showed pulmonary embolism, started on heparin drip; continue for now. Hematology consulted regarding anti-coagulation yesterday, recommend switching to lovenox, 100mg BID and obtaining baseline duplex. Albuterol PRN. Gastrointestinal:??NPO diet.Will place new Dobhoff today, plan for PEG tomorrow. Bisacodyl suppository PRN for constipation; zofran d/clay for long QT. Genitourinary: ??Iqbal discontinued, voiding. Will restart Flomax when able. Musculoskeletal:??Ambulate QID, OOB to chair, PT/OT Nutrition:??NPO diet per speech eval recs; Tube feeds changed to bolus feeds, per nutrition recs. Will restart once Dobhoff in. Infectious Disease:?Peridex; on Pip-Tazo for pneumonia for 7 day course, last day today. Hematology: ??Mild leukocytosis-following; therapeutic heparin gtt for PE. Will switch to Lovenox as recommended by heme. Endocrine:?Humalog Prophylaxis:??, SCD; PPI Disposition: Floor status, Full Code Discharge:??Plan for d/c TBD; Needs TBD; Follow-up ENT with Dr. Contreras TBD ?? PPx: heparin gtt, SCD, PPI. __ Celso Mejía MD, PGY1 07/27/17 7:01 AM Pager: [phone] * Collette Schultz - 07/26/2017 8:21 PM EDT Zach Encounter Note Patient Name: Jose Laws : [id number] MR#: [id number] Admit Date: 07/13/2017 6:04 AM Hospital Day 13 days Narrative: Attempted return visit - pt sleeping. Time in Direct Care: 0 min. 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 Heshared his enthusiasm for [employer] stories. Intervention and Outcome: Provided pastoral/supportive presence and active listening. When doctors came for a procedure, patient requested I come back later Follow-up: Yes, will check back later today Time in Direct Care: 15 min. Vivianumair Dotty Marion 07/26/2017 * Anay Diallo RN - 07/26/2017 2:30 PM EDT Manager Presentation Follow Up Note Patient plan of care discussed in multidisciplinary rounds. Met with patient to assess continuing care and discharge needs. Continues to require hospitalization for Head and neck cancer. Discharge plan uncertain at this time. Manager Presentation to follow with team and family to assist with discharge needs when patient ready for discharge. Anay Diallo RN Case Management for [facility] pgr [phone] * Briana Goel RN - 07/26/2017 2:29 PM EDT [facility] Interventional Radiology ? Interventional Radiology Nursing and/or providers have determined that this patient is not a candidate for moderate sedation based on the criteria below: 1. Mallampati of 4 2. Patient with ALS or MS and questionable airway. 3. Inability to clear own secretions/on aspiration precautions. 4. Recent ENT surgery within 1 week (neck dissections, glossectomies). State reason: new trach (cuffed vs. non cuffed). Should be on a case by case basis after getting report from the nurse. 4. Combative/inability to hold still for procedure/unable to follow commands (such as take a deep breath, breathe???the non-verbal, severely disabled people). 5. Inability to lay flat. 6. Patient refused moderate sedation. 7. Unstable vital signs. 8. Tremors (MRI only). 9. Pt is not NPO per protocol. 10. Pt. is on a ventilator in ICU. 11. Previous inability to tolerate procedure with IV sedation. 13. PT ON CPAP OR BIPAP (MRI???S ONLY) PLEASE WRITE A NOTE AND/OR CORRESPONDING NUMBER STATING REASON: #3 Swallow Evaluation ? ASSESSMENT: Pt presents with mild decreases in oral manipulation of purees and thin liquids. Pt exhibits inconsistent signs of aspiration with both thin liquids and purees. (Per note from Speech Therapist dated 07/26/17:) * Rhianna Zhu, RD - 07/26/2017 9:57 AM EDT Nutrition Progress Note Follow-up Tube Feeding Evaluation Reason for intervention: Follow up Recommendation(s)/Plan: 1. For continuous feeds: recommend switch to Promote with a goal rate of 90 ml/hr x 24 hrs. At goal to provide: 2160 ml, 2160 calories, 135 g protein, 1812 ml water from formula, and 100% DRIs for vitamins and minerals. -Monitor hydration: Pt requires an estimated 350 ml additional water 2. For bolus feeds: Initiate slowly giving 100ml over 45-60minutes and increasing by 50 ml per feedas tolerated until able to reach goal of 375 ml of Promote six times per day. At goal provides 2250 ml, 2250 calories, 140 g protein, 1887 ml water from formula, and 100% DRIs for vitamins and minerals. -Flush with 60ml water before and after each feed to maintain patency and for hydration. -May take 2-4 days to meet goal. 3. Consider monitoring Mg and Phos for refeeding, given pt will no longer be on hypocaloric feedings. The past 3 days pt has averaged 29% of goal volumes for enteral feeds and 22% for protein powder. I was able to reach the patient's provider, ENT Service Dr. Jackie Mejía #[phone] , regarding above. Paged, callback # provided after signing this note. Spoke to provider on the phone. Orders pended for both continuous and bolus recs; provider to check in with team for which rec would like to be implemented. Jose Laws is a 66 y.o. male Principal Problem: Head and neck cancer Active Problems: Pulmonary embolism Overview: Recurrent. Atrial fibrillation Overview: March 2017: noted in ED in [facility]. Previously noted to be paroxysmal. No awareness. CHADS2-VASc=1 (age). Started on apixaban for PE Acute respiratory failure Overview: Worsening oxygenation. KORI on CPAP Adult BMI 30+ Estimated body mass index is 38.74 kg/(m^2) as calculated from the following: Height as of this encounter: 191.8 cm (6' 3.51). Weight as of this encounter: 142.5 kg (314 lb 2.5 oz). Admit Wt: 133.36 kg [place] body weight: 90.4 kg Type of access: Dobhoff tube I/O last 3 completed shifts: In: 2414 [I.V.:1119; Other:265; NG/GT:1030] Out: 6380 [Urine:6155; Stool:225] Average daily TF intake (past 3 days): 385 ml versus daily goal of 1300 ml; 1.3 scoops vs 18 scoopsprotein powder Last BM: 07/25 Residuals: wnl when recorded Pertinent Meds: liquid tylenol, lispro SS, lactobacillus, protonix, heparin infusion, others noted. Lab Results Component Value Date NA 141 07/26/2017 K 3.8 07/26/2017 CL 102 07/26/2017 CO2 25 07/26/2017 BUN 18 07/26/2017 CREATININE 0.85 07/26/2017 GLUCOSE 123 07/26/2017 MAGNESIUM 0.83 07/25/2017 CALCIUM 9.2 07/26/2017 PHOS 3.0 07/19/2017 AST 15 07/13/2017 ALT 13 07/13/2017 ALKPHOS 70 07/13/2017 BILITOT 0.2 07/13/2017 Ref. Range 07/26/2017 03:30 Prealbumin Latest Ref Range: 20 - 40 mg/dL 26 Current Tube Feeding: Peptamen Intense VHP at 65 ml/hr + 6 scoops of protein powder daily. This provides: 1450 kcal, 156 g protein, 1092 ml free water + 300 ml water from protein powder administratin, and 87% RDIs for vitamins and minerals. Assessment: Estimated Nutrition Needs: 8588-4254 calories (20-25 kcal/kg IBW) 135-160 grams protein (1.5-2.0 g/kg IBW) Patient is out of the ICU and out on the floor. Tube feedings need adjustment as pt is no longer onpropofol. 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 KATHY Mosqueda * Celso Mejía MD - 07/26/2017 9:00 AM EDT OTOLARYNGOLOGY - HEAD & NECK SURGERY DAILY PROGRESS NOTE Name: Jose Laws Age/Sex: 66 y.o. 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 -On heparin gtt for PE at 2500 units/hr. -On zosyn for PNA, day 04/14. Vitals Last value 24hr Range Temperature: 36.6 ??C (97.9 ??F) Temp: [36 ??C (96.8 ??F)-36.8 ??C (98.2 ??F)] Heart Rate: 76 Heart Rate: [63-76] Blood Pressure: 148/88 BP: (132-148)/(76-90) Respiratory Rate: 18 Resp: [12-18] SpO2: 94 % SpO2: [92 %-96 %] Intake & Output Intake/Output Summary (Last 24 hours) at 07/26/17 0901 Last data filed at 07/26/17 0338 Gross per 24 hour Intake 724 ml Output 3355 ml Net -2631 ml Physical Exam General: NAD, non-ill appearing Face: Symmetric without dysmorphic features Eyes: EOMI, conjunctiva healthy Ears: Auricles symmetric, no lesions Nose: Grossly normal appearance, Dobhoff tube in place, CPAP mask on. Oral Cavity/Pharynx: Mucosa is pink, oropharynx symmetric. Neck: Soft, trachea midline; right neck incision is well healing, dressing c/d/i. Chest: Non-labored breathing. Neuro: Responds to questions, moves extremities spontaneously. Labs Recent Labs 07/26/17 0330 07/25/17 1751 07/25/17 1100 07/25/17 0437 WBC 12.4* -- -- 12.8* HGB 15.2 -- -- 14.0 HCT 44.1 -- -- 40.3* PLATELET 253 -- -- 241 PTT 60* 112* 102* 122* NA 141 -- -- 140 K 3.8 -- 3.9 3.6 CL 102 -- -- 103 CO2 25 -- -- 24 BUN 18 -- -- 14 CREATININE 0.85 -- -- 0.81 GLUCOSE 123 -- -- 120 CALCIUM 9.2 -- -- 8.8 MAGNESIUM -- -- -- 0.83 Imaging EXAMINATION: CTA chest for pulmonary arteries, 07/20/17 ? CLINICAL HISTORY: acute respiratory decompensation s/p ENT surgery ? TECHNIQUE: 3 mm thick axial contiguous sections were obtained through the chest via helical acquisition after the intravenous administration of 95 cc of Omnipaque-350. Thin-section reconstructions as well as coronal and sagittal MIP reformatted images were generated to aid in evaluation. ? COMPARISON: 03/29/2017 ? FINDINGS: Pulmonary arteries: There are multiple long segment pulmonary emboli within the right upper lobe pulmonary artery branches. Additional smaller PE are identified in right lower lobe segmental pulmonary arteries. ? Interventricular septum flattening or bowing: Absent Venous contrast reflux: N/A ? Other cardiovascular structures: No significant findings. ? Pulmonary parenchyma: Moderate bibasilar airspace process and [...] structures: Stable severe degenerative changes thoracolumbar spine. ? IMPRESSION Multiple right PE as described above. Findings discussed with Dr. 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 POD#14. Extubated on 07/24 and continues to do well from respiratory standpoint. Continues Heparin gtt for multiple RUL PE. Continues Zosyn for PNA. 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 Neurologic: Pain controlled with liquid acetaminophen, scheduled, via DHT Cardiovascular: Occasional bradycardia, PRN atropine ordered for HR<40, will continue to monitor. PRN BP and HR meds. History of A-fib, previously on diltiazem drip. Pulmonary: Extubated on room air 06/23. CPAP while sleeping. CT-PE showed pulmonary embolism, started on heparin drip; continue for now. Hematology consulted regarding anti-coagulation. Albuterol PRN. Gastrointestinal: NPO diet. Continue Dobhoff for now, Bisacodyl suppository PRN for constipation; zofran d/clay for long QT. Genitourinary: Iqbal - discontinue when ambulatory. Musculoskeletal: Ambulate QID, OOB to chair, PT/OT Nutrition: NPO diet per speech eval today; Tube feeds changed to bolus feeds, per nutrition recs. Infectious Disease: Peridex; on Pip-Tazo for pneumonia for 7 day course Hematology: Mild leukocytosis-following; therapeutic heparin gtt for PE. Will follow up heme recs for anti-coagulation. Endocrine: Humalog Prophylaxis: , SCD; PPI Disposition: ICU Status - plan to transfer to NSCU when extubated for 24 hours, Full Code Discharge: Plan for d/c TBD; Needs TBD; Follow-up ENT with Dr. Ben GREWAL PPx: heparin gtt, SCD, PPI. __ Celso Mejía MD, PGY1 07/26/17 9:01 AM Pager: [phone] * Calista Peralta RT - 07/26/2017 12:27 AM EDT Patient wore Home NIV unit overnight with no issues. SPO2 93%. Will continue to assess and assist with NIV usage nightly. * Ignacio Regan P - 07/25/2017 9:59 AM EDT OTOLARYNGOLOGY - HEAD & NECK SURGERY DAILY PROGRESS NOTE Name: Jose Laws Age/Sex: 66 y.o. male Attending: Sriram Contreras MD Hospital Day: 13 9 Days Post-Op Patient ID/Reason for Admission Jose Laws is a 66 y.o. 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 Normal SpO2 on Room air this morning. On heparin gtt for PE. On zosyn for PNA Vitals Last value 24hr Range Temperature: 36.5 ??C (97.7 ??F) Temp: [36.6 ??C (97.9 ??F)-37.5 ??C (99.5 ??F)] Heart Rate: 73 Heart Rate: [51-93] Blood Pressure: 124/64 BP: -- Respiratory Rate: 16 Resp: [13-21] SpO2: 97 % SpO2: [90 %-98 %] Intake & Output Intake/Output Summary (Last 24 hours) at 07/25/17 0959 Last data filed at 07/25/17 0852 Gross per 24 hour Intake 2438 ml Output 4615 ml Net -2177 ml Physical Exam General: NAD, non-ill appearing. Alert, oriented to person/place Face: Symmetric without dysmorphic features Eyes: EOMI, conjunctiva healthy Ears: Auricles symmetric, no lesions Nose: Grossly normal appearance; Dobhoff tube in place Oral Cavity/Pharynx: Mucosa is pink, oropharynx symmetric. No tongue edema, Tongue is compressible.Mallampati II Neck: Soft, trachea midline; with well-healing Right neck incision c/d/i no hematoma/seroma. S/p staple removal Chest: deferred Neuro: Moves extremities spontaneously, responds to questions, A&O x 2 Labs Recent Labs 07/25/17 0437 07/24/17 0728 07/24/17 0100 WBC 12.8* -- 13.4* HGB 14.0 -- 12.7* HCT 40.3* -- 38.0* PLATELET 241 -- 201 PTT 122* -- 102* NA 140 -- 143 K 3.6 4.1 4.0 CL 103 -- 104 CO2 24 -- 27 BUN 14 -- 17 CREATININE 0.81 -- 0.70* GLUCOSE 120 -- 103 CALCIUM 8.8 -- 8.7 MAGNESIUM 0.83 -- -- Imaging EXAMINATION: CTA chest for pulmonary arteries ?? CLINICAL HISTORY: acute respiratory decompensation s/p ENT surgery ?? TECHNIQUE: 3 mm thick axial contiguous sections were obtained through the chest via helical acquisition after the intravenous administration of 95 cc of Omnipaque-350. Thin-section reconstructions as well as coronal and sagittal MIP reformatted images were generated to aid in evaluation. ?? COMPARISON: 03/29/2017 ?? FINDINGS: Pulmonary arteries: There are multiple long [...] IMPRESSION Multiple right PE as described above. Findings discussed with Dr. Cuevas at the time of this interpretation ?? ASSESSMENT & PLAN Jose Laws is a 66 y.o. 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 POD13. Extubated yesterday and doing well from respiratory standpoint. Continues Heparin gtt formultiple RUL PE. Continues Zosyn for PNA. 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 Neurologic: Pain controlled with acetaminophen SHIRA; transition to enteral meds via DHT Cardiovascular: PRN BP and HR meds; diltiazem drip for A-fib - will need conversion to PO Pulmonary: Extubated on room air. CT-PE shows pulmonary embolism, started on heparin drip; will need to transition to warfarin when awake; albuterol PRN Gastrointestinal: Bisacodyl suppository PRN for constipation; zofran d/clay for long QT Genitourinary: Iqbal - discontinue when ambulatory Musculoskeletal: Ambulate QID, OOB to chair, PO/OT Nutrition: NPO diet (Give Meds); Nutrition consult for tube feeds - modify to tube feeds with propofol as per recs, Ok for ICU team to change this order as needed Infectious Disease: Peridex; on Pip-Tazo for pneumonia for 7 day course Hematology: Mild leukocytosis-following; therapeutic heparin gtt for PE--will need Warfarin Endocrine: Humalog Prophylaxis: , SCD; PPI Disposition: ICU Status - plan to transfer to [facility] when extubated for 24 hours, Full Code Discharge: Plan for d/c TBD; Needs TBD; Follow-up ENT with Dr. Contreras TBD __ IGNACIO REGAN MD 07/25/17 9:59 AM * Biju Valdes MD - 07/25/2017 7:29 AM EDT Critical Care Attending Daily Progress Note This patient was seen and examined on daily ICU rounds. 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 s/p transoral laser microsurgery resection of right base of tongue cancer and right neck dissection on 07/13/2017 24 Hour Events: Extubated Assessment, Management, and Decision Making Pt seen and examined with the critical care team with my full assessment and plan by systems as follows: Neuro: pain meds via DHT CV: stable PULM: extubated yesterday and has tolerated NC well GI: restarted tf : lytes ok HEME: h/h stable ID: enterobacter pna, Zosyn and will stop tomorrow at 7d ENDO: stable T/L/D: PIV MSK: PT/OT DISPO: ok for transfer Physical Exam Last value Range last 24hrs Temperature Temp: 37 ??C (98.6 ??F) Temp: [36.6 ??C (97.9 ??F)-37.5 ??C (99.5 ??F)] Heart Rate Heart Rate: 87 Heart Rate: [51-93] Blood Pressure BP: 124/64 BP: -- Respiratory Rate Resp: 21 Resp: [13-21] SpO2 SpO2: 94 % SpO2: [90 %-98 %] BMI Body mass index is 38.74 kg/(m^2). 07/24 0701 - 07/25 0700 In: 2490 [I.V.:1798] Out: 5000 [Urine:4725] General: awake and alert after extubation Lungs: clear ant Heart: reg Abdomen: soft Extremities: edematous Neuro: no focal deficits Recent Labs 07/25/17 0437 07/24/17 0100 07/23/17 1455 07/23/17 0827 07/23/17 0153 07/23/17 0045 WBC 12.8* 13.4* -- -- -- 10.2* HGB 14.0 12.7* -- -- -- 11.1* HCT 40.3* 38.0* -- -- -- 33.5* PLATELET 241 201 -- -- -- 165 PTT 122* 102* 101* 95* 119* -- Recent Labs 07/25/17 0437 07/24/17 0728 07/24/17 0100 07/23/17 0415 07/23/17 0045 NA 140 -- 143 -- 142 K 3.6 4.1 4.0 4.1 3.7 CL 103 -- 104 -- 105 CO2 24 -- 27 -- 26 BUN 14 -- 17 -- 20 CREATININE 0.81 -- 0.70* -- 0.65* GLUCOSE 120 -- 103 -- 127 CALCIUM 8.8 -- 8.7 -- 8.3* MAGNESIUM 0.83 -- -- -- -- Recent Labs 07/24/17 0728 07/23/17 0632 07/22/17 0827 PHART 7.44 7.41 7.42 PO2ART 67* 60* 78* [id number] 39 37 39 BEART 1.2 -2.0 0.3 Is this patient critically ill? Is there a high potential of sudden, clinically significant, or life threatening deterioration? No Is there a need for direct personal assessment and management to treat/prevent multiple vital organfailure/deterioration? No D. Tuan Valdes MD * Biju Valdes MD - 07/24/2017 10:46 PM EDT Critical Care Attending Daily Progress Note This patient was seen and examined on daily ICU rounds. 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 s/p transoral laser microsurgery resection of right base of tongue cancer and right neck dissection on 07/13/2017 24 Hour Events: Passed SBT Assessment, Management, and Decision Making Pt seen and examined with the critical care team with my full assessment and plan by systems as follows: Neuro: swich to pain meds via DHT CV: stable PULM: extubated this am and tolerated well, will observe in ICU for 24h post extubation GI: restart tf : lytes ok HEME: h/h stable ID: enterobacter pna, Zosyn and will stop at 7d ENDO: stable T/L/D: PIV MSK: PT/OT DISPO: ICU FULL CODE Physical Exam Last value Range last 24hrs Temperature Temp: 37.4 ??C (99.3 ??F) Temp: [37.1 ??C (98.8 ??F)-37.5 ??C (99.5 ??F)] Heart Rate Heart Rate: 68 Heart Rate: [51-93] Blood Pressure BP: 124/64 BP: -- Respiratory Rate Resp: 15 Resp: [10-20] SpO2 SpO2: 92 % SpO2: [90 %-98 %] BMI Body mass index is 38.74 kg/(m^2). 07/23 0701 - 07/24 0700 In: 2578 [I.V.:2195] Out: 6330 [Urine:6330] General: awake and alert after extubation Lungs: clear ant Heart: reg Abdomen: soft Extremities: edematous Neuro: no focal deficits Recent Labs 07/24/17 0100 07/23/17 1455 07/23/17 0827 07/23/17 0153 07/23/17 0045 07/22/17 1600 07/22/17 0310 WBC 13.4* -- -- -- 10.2* -- -- 12.2* HGB 12.7* -- -- -- 11.1* -- -- 12.5* HCT 38.0* -- -- -- 33.5* -- -- 37.9* PLATELET 201 -- -- -- 165 -- -- 168 PTT 102* 101* 95* 119* -- 92* < > 89* < > = values in this interval not displayed. Recent Labs 07/24/17 0728 07/24/17 0100 07/23/17 0415 07/23/17 0045 07/22/17 0310 NA -- 143 -- 142 144 K 4.1 4.0 4.1 3.7 3.9 CL -- 104 -- 105 106 CO2 -- 27 -- 26 25 BUN -- 17 -- 20 23* CREATININE -- 0.70* -- 0.65* 0.76* GLUCOSE -- 103 -- 127 121 CALCIUM -- 8.7 -- 8.3* 8.3* Recent Labs 07/24/17 0728 07/23/17 0632 07/22/17 0827 PHART 7.44 7.41 7.42 PO2ART 67* 60* 78* [id number] 39 37 39 BEART 1.2 -2.0 0.3 Is this patient critically ill? Is there a high potential of sudden, clinically significant, or life threatening deterioration? Yes Is there a need for direct personal assessment and management to treat/prevent multiple vital organfailure/deterioration? Yes Patient is critically ill with these diagnoses being managed by the Critical Care Team: Respiratory Failure Acute with hypercapnia I personally performed 34 minutes of aggregate critical care time exclusive of procedures and teaching, between the hours of 0700 and 1700 on the date of this note. This includes time spent during direct patient evaluation and reassessment, interpreting diagnostic tests, directing life and/or organ supporting interventions and documentation on the unit. Mary Valdes MD * Cherry Baltazar RCP - 07/24/2017 5:36 PM EDT Pt remained on vent until 1200, when he was extubated to 4L NC. Pt without respiratory concerns at this time. * Ignacio Regan - 07/24/2017 9:27 AM EDT OTOLARYNGOLOGY - HEAD & NECK SURGERY DAILY PROGRESS NOTE Name: Jose Laws Age/Sex: 66 y.o. male Attending: Sriram Contreras MD Hospital Day: 12 8 Days Post-Op Patient ID/Reason for Admission Jose Laws is a 66 y.o. 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 Passed SBT. Plan for extubation this AM On heparin gtt for PE. Vitals Last value 24hr Range Temperature: 37.5 ??C (99.5 ??F) Temp: [37.1 ??C (98.8 ??F)-37.6 ??C (99.7 ??F)] Heart Rate: 65 Heart Rate: [59-82] Blood Pressure: 124/64 BP: -- Respiratory Rate: 18 Resp: [10-23] SpO2: 96 % SpO2: [93 %-98 %] Intake & Output Intake/Output Summary (Last 24 hours) at 07/24/17 0927 Last data filed at 07/24/17 0813 Gross per 24 hour Intake 2349 ml Output 6585 ml Net -4236 ml Physical Exam General: NAD, non-ill appearing. Intubated Face: Symmetric without dysmorphic features Eyes: EOMI, conjunctiva healthy Ears: Auricles symmetric, no lesions Nose: Grossly normal appearance; Dobhoff tube in place Oral Cavity/Pharynx: Mucosa is pink, oropharynx symmetric. No tongue edema, Tongue is compressible.ETT in place. Neck: Soft, trachea midline; with well-healing Right neck incision c/d/i no hematoma/seroma. S/p staple removal Chest: deferred Neuro: mildly Sedated, move spontaneously Labs Recent Labs 07/24/17 0728 07/24/17 0100 07/23/17 1455 07/23/17 0045 07/21/17 2235 WBC -- 13.4* -- -- 10.2* < > -- HGB -- 12.7* -- -- 11.1* < > -- HCT -- 38.0* -- -- 33.5* < > -- PLATELET -- 201 -- -- 165 < > -- PTT -- 102* 101* < > -- < > -- NA -- 143 -- -- 142 < > 144 K 4.1 4.0 -- < > 3.7 < > 4.0 CL -- 104 -- -- 105 < > 107 CO2 -- 27 -- -- 26 < > 25 BUN -- 17 -- -- 20 < > 23* CREATININE -- 0.70* -- -- 0.65* < > 0.88 GLUCOSE -- 103 -- -- 127 < > 135 CALCIUM -- 8.7 -- -- 8.3* < > 8.7 MAGNESIUM -- -- -- -- -- -- 0.80 < > = values in this interval not displayed. Imaging EXAMINATION: CTA chest for pulmonary arteries ?? CLINICAL HISTORY: acute respiratory decompensation s/p ENT surgery ?? TECHNIQUE: 3 mm thick axial contiguous sections were obtained through the chest via helical acquisition after the intravenous administration of 95 cc of Omnipaque-350. Thin-section reconstructions as well as coronal and sagittal MIP reformatted images were generated to aid in evaluation. ?? COMPARISON: 03/29/2017 ?? FINDINGS: Pulmonary arteries: There are multiple long [...] IMPRESSION Multiple right PE as described above. Findings discussed with Dr. Cuevas at the time of this interpretation ?? ASSESSMENT & PLAN Jose Laws is a 66 y.o. 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 POD12. 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 Neurologic: Pain controlled with acetaminophen SHIRA; Sedated on fentanyl, propofol Cardiovascular: PRN BP and HR meds; diltiazem drip for A-fib Pulmonary: Intubated. CT-PE shows pulmonary embolism, started on heparin drip; will need to transition to warfarin when awake; albuterol PRN Gastrointestinal: Bisacodyl suppository PRN for constipation; zofran d/clay for long QT Genitourinary: Iqbal Musculoskeletal: Bedrest Nutrition: NPO diet (Give Meds); Nutrition consult for tube feeds - modify to tube feeds with propofol as per recs, Ok for ICU team to change this order as needed Infectious Disease: Peridex; on Pip-Tazo for pneumonia Hematology: Mild leukocytosis-following; therapeutic heparin gtt for PE--will need Warfarin Endocrine: Humalog Prophylaxis: Lovenox, SCD; PPI Disposition: ICU Status, Full Code Discharge: Plan for d/c TBD; Needs TBD; Follow-up ENT with Dr. Contreras TBD __ IGNACIO P MD KLAUS 07/24/17 9:27 AM Associated attestation - Samm Payne MD - 07/25/2017 6:54 AM EDT Otolaryngology Attending Physician Addendum Patient discussed at length and in detail with Dr. Regan. I have reviewed, and agree with, the clinical history, physical examination findings, impression, and plan, as detailed in resident physician's note. Samm Payne MD, FAAP Pediatric Otolaryngology [facility] * Beena Saini RCP - 07/24/2017 4:28 AM EDT AMV Protocol: Yes SBT Protocol: Yes SBT: Passed Vent Settings: Servo I Ventilator Mode: PS 5 PEEP Set: 5 FiO2: 30 % Ventilator Measurements: Resp: 17 Vt Spontaneous: 638 Ve: 10.1 SpO2: 98 % EtCO2: 39 mmHg Airway: 7.5 @ 23 cm at the Teeth. Skin Integrity: WDL Albuterol PRN Breath Sounds: rhonchi Secretions: Large thick bloody/hdez secretions. Assessment / Events / Plan of the Day: Pt remains on above vent settings. No changes made this shift. Will continue to follow. * Cherry Baltazar RCP - 07/23/2017 6:06 PM EDT AMV Protocol: Yes SBT Protocol: Yes Vent Settings: Servo I Ventilator Mode: PS PEEP Set: 5 FiO2: 30 % PSV: 5 Ventilator Measurements: Resp: 18 Vt Spontaneous: 648 Ve: 11.5 SpO2: 96 % EtCO2: 33 mmHg Airway: 7.5 @ 23 cm at the Teeth. Skin Integrity: WDL Breath Sounds: coarse Secretions: large thick yellow/ with some bailey blood Assessment / Events / Plan of the Day: had been hoping to extubated, but pt mental status questionable. Large amounts of thick clear secretions suctioned. Will remain intubated overnight * Jaimee Denney LD - 07/23/2017 4:42 PM EDT Nutrition Progress Note Follow-up Tube Feeding Evaluation- Nutrition Services Reason for intervention: Follow up Recommendation(s)/Plan: The past 2 days pt has averaged >100 % of goal volumes for enteral feeds and 83% for protein powder Once medically feasible, resume TF: Peptamen Intense VHP at 65 mL/h plus 6 scoops of protein powderdaily. Would check TG level as previously suggested Monitor weight. Jose Laws is a 66 y.o. male Principal Problem: Head and neck cancer Active Problems: Pulmonary embolism Overview: Recurrent. Atrial fibrillation Overview: March 2017: noted in ED [place] [facility] Previously noted to be paroxysmal. No awareness. CHADS2-VASc=1 (age). Started on apixaban for PE Acute respiratory failure Overview: Worsening oxygenation. KORI on CPAP Adult BMI 30+ Estimated body mass index is 38.74 kg/(m^2) as calculated from the following: Height as of this encounter: 191.8 cm (6' 3.51). Weight as of this encounter: 142.5 kg (314 lb 2.5 oz). Admit Wt: 133.36 kg Type of access: DHT I/O last 3 completed shifts: In: 6123 [I.V.:3479; Other:160; NG/GT:2484] Out: 3140 [Urine:2890; Stool:250] Average daily TF intake (past 2 days): 1477 ml versus daily goal of 1300 ml Last BM: 07/22 Pertinent Meds: liquid tylenol, humalog, propofol @17.2 ml/h (454 calories) Lab Results Component Value Date NA 142 07/23/2017 K 4.1 07/23/2017 CL 105 07/23/2017 CO2 26 07/23/2017 BUN 20 07/23/2017 CREATININE 0.65 (L) 07/23/2017 GLUCOSE 127 07/23/2017 MAGNESIUM 0.80 07/21/2017 CALCIUM 8.3 (L) 07/23/2017 PHOS 3.0 07/19/2017 AST 15 07/13/2017 ALT 13 07/13/2017 ALKPHOS 70 07/13/2017 BILITOT 0.2 07/13/2017 Current Tube Feeding: Peptamen Intense VHP at 65 ml per hour to provide volume of 1300 ml plus 6 scoops Beneprotein powder per day. (This rate is calculated to compensate for unplanned time off feedings due to potential procedures, etc.). ??1450 kcal, 156 gm protein, 1092 ml water from formula (plus ~ 300 ml additional free water to mix protein powder), 87% of RDI's for vitamins and minerals. TF off since this am for possible extubation, however patient remains intubated. TF remains off. Once medically feasible would resume tube feeds. KATHY Lundberg * Roc Valdez RN - 07/23/2017 3:50 PM EDT Office of Care Management(OCM)/Manager Presentation(CM) Service: ENT Pt remains intubated at this time. He passed his SBT this morning but was not extubated due to his inability to follow commands. RN has been weaning the Propofol all day in hopes of him following commands and being able to be extubated. MD feels pt will be extubated right to CPAP. Pt remains on bedrest and dependent on staff. CT showed a pulmonary embolism so pt was started on a Heparin drip. Plan: advocate for PT/OT consults to help determine DC recs. CM will follow up and get appropriate choices after recs are made. Manager Presentation Roc Valdez RN, BSN Pager #[phone] * Sony Oliva MD - 07/23/2017 11:31 AM EDT Critical Care Medicine Staff Inpatient Progress Note Author: Sony Oliva MD Patient seen and examined on critical care rounds. Jose Laws is a 66 y.o. male with the current active problems: ACTIVE PROBLEMS Patient Active Problem List Diagnosis Code ??? Carcinoma of base of tongue C01 ??? Pulmonary embolism I26.99 ??? Benign prostatic hyperplasia N40.0 ??? Atrial fibrillation I48.91 ??? KORI on CPAP G47.33, Z99.89 ??? Adult BMI 30+ E66.8 ??? Head and neck cancer C76.0 ??? Acute respiratory failure J96.00 Interval history: No worrisome events, reportedly passed SBT. My exam: Temp: [36.9 ??C (98.4 ??F)-37.4 ??C (99.3 ??F)] Heart Rate: [57-75] Resp: [9-21] BP: -- SpO2: [91 %-98 %] Heart Rate from SPO2: -- Body mass index is 38.74 kg/(m^2). Sedated, intubated Neck wound improving Chest clear Extremities warm Other pertinent information: Intake/Output Summary (Last 24 hours) at 07/23/17 1132 Last data filed at 07/23/17 1000 Gross per 24 hour Intake 4184 ml Output 2175 ml Net 2009 ml Lab Results Component Value Date BILITOT 0.2 07/13/2017 Recent Labs 07/23/17 0045 PLATELET 165 Lab Results Component Value Date CREATININE 0.65 (L) 07/23/2017 No results found for: PHART, PO2ART, CYT8SER ASSESSMENT, MANAGEMENT, and DECISION MAKING: potential for extubation later today. This patient will continue to need inpatient services for at least two days. IS PATIENT CRITICALLY ILL ? * Is there a high potential of sudden, clinically significant, or life threatening deterioration? YES/ * Is there a need for direct personal assessment and management to treat/prevent multiple vital organ failure/deterioration? YES / PATIENT IS CRITICALLY ILL WITH THESE DIAGNOSES BEING MANAGED BY [facility] TEAM: NEED AT LEAST ONE OF THESE DX to USE 53264 ARDS Stupor Hypoxemic Resp Failure (Fi02>50%) Delirium Alcohol Withdrawal x Pneumonia Reg Ventilator Acute Encephalopathy Acute Respiratory Failure Chronic Respiratory Failure Ascites Req Treatment Respiratory Acidosis Hypertensive Emergency Pneumonia Atelectasis Pleural Effusion Hyponatremia Acute adrenal insufficiency Metabolic Acidosis Metabolic Alkalosis Hypernatremia Arhrythmias Atrial Fibrillation Atrial Flutter SVT Ventricular Shock Ebb Phase Flow Phase Congestive Heart Failure Systolic Diastolic Right Heart Hypotension Req Fluids Hyperkalemia Chronic Renal Failure Malnutrition Obesity/Morbid Obesity Hypotension Req Pressors Acute Drug Ingestion / Overdose Sepsis Bacteremia Acute Renal Failure Acute Kidney Injury Rhabdomyolysis SIRS - SEVERE From: SIRS - MODERATE From: SIRS - MILD From: Acute Liver failure PA Catheter Thrombocytopenia Coagulopathy DIC Cardiogenic shock Neutropenia Anaphylaxis Anemia Acute blood loss Post operative blood loss Acute Myocardial infarction Active Hemorrhage Coma Subarachnoid Hemorrhage Head trauma Subdural Hematoma Epidural Hematoma Intraparenchymal brain hemorrhage Intra-cranial Hypertension Cerebral edema Neuromuscular disorder of critical illness Paraplegia Quadraplegia Chest trauma Pneumothorax Tension pneumothorax Pulmonary contusion Rib fractures (#) Flail Chest Abdominal trauma Abdominal compartment syndrome Severe pancreatitis Infected pancreatic necrosis C. Diff colitis Perforated Viscus S/p emergent abdominal surgery Abdominal sepsis Intestinal ischemia Secondary peritonitis Tertiary peritonitis Anastomotic leak TIME spent on the unit excluding procedures - more than 50% of this time was spent in the planning and coordination of care for this patient. Rounds (15 ); review of radiographs on the unit ( ); review of outside/inside data ( ); discussion with other health care personnel ( ); discussion with primary service ( ); discussion with family ( ); note ( 5 ). I personally performed ( ) minutes of aggregated critical care time exclusive of procedures and teaching. This includes time spent during direct patient evaluation and reassessment, interpreting diagnostic tests, directing life/and/or organ supporting interventions and documentation on the unit. * Abigail Martino MD - 07/23/2017 7:00 AM EDT OTOLARYNGOLOGY - HEAD & NECK SURGERY DAILY PROGRESS NOTE Name: Jose Laws Age/Sex: 66 y.o. male Attending: Sriram Contreras MD Hospital Day: 11 7 Days Post-Op Patient ID/Reason for Admission Jose Laws is a 66 y.o. 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 Interval History Intubated on ventilator at 40%. Passed SBT. On heparin for PE. As per critical care notes and discussion with nurse/nursing notes, Plan to extubate this AM; overall afebrile overnight. Surgical site is intact - no issues. Good airway, no tongue swelling. Vitals Last value 24hr Range Temperature: 37.4 ??C (99.3 ??F) Temp: [36.9 ??C (98.4 ??F)-37.4 ??C (99.3 ??F)] Heart Rate: 75 Heart Rate: [56-75] Blood Pressure: 124/64 BP: -- Respiratory Rate: 17 Resp: [9-21] SpO2: 91 % SpO2: [91 %-98 %] Intake & Output Intake/Output Summary (Last 24 hours) at 07/23/17 0700 Last data filed at 07/23/17 0600 Gross per 24 hour Intake 3911 ml Output 1990 ml Net 1921 ml Physical Exam General: NAD, non-ill appearing. Intubated Face: Symmetric without dysmorphic features Eyes: EOMI, conjunctiva healthy Ears: Auricles symmetric, no lesions Nose: Grossly normal appearance; Dopoff tube in place Oral Cavity/Pharynx: Mucosa is pink, oropharynx symmetric. No tongue edema, Tongue is compressible. Neck: Soft, trachea midline; with neck incision c/d/i with crystal with no hematoma/seroma. Chest: Ventilator breath equal BL, RR Neuro: Sedated, orally intubated. Labs Recent Labs 07/23/17 0415 07/23/17 0153 07/23/17 0045 07/22/17 1600 07/22/17 0310 07/21/17 2235 07/20/17 1650 WBC -- -- 10.2* -- -- 12.2* -- < > -- HGB -- -- 11.1* -- -- 12.5* -- < > -- HCT -- -- 33.5* -- -- 37.9* -- < > -- PLATELET -- -- 165 -- -- 168 -- < > -- PTT -- 119* -- 92* < > 89* -- < > -- NA -- -- 142 -- -- 144 144 < > 146* K 4.1 -- 3.7 -- -- 3.9 4.0 < > 3.9 CL -- -- 105 -- -- 106 107 < > 110* CO2 -- -- 26 -- -- 25 25 < > 25 BUN -- -- 20 -- -- 23* 23* < > 23* CREATININE -- -- 0.65* -- -- 0.76* 0.88 < > 0.85 GLUCOSE -- -- 127 -- -- 121 135 < > 143 CALCIUM -- -- 8.3* -- -- 8.3* 8.7 < > 8.5 MAGNESIUM -- -- -- -- -- -- 0.80 -- 1.00 < > = values in this interval not displayed. Imaging EXAMINATION: CTA chest for pulmonary arteries ?? CLINICAL HISTORY: acute respiratory decompensation s/p ENT surgery ?? TECHNIQUE: 3 mm thick axial contiguous sections were obtained through the chest via helical acquisition after the intravenous administration of 95 cc of Omnipaque-350. Thin-section reconstructions as well as coronal and sagittal MIP reformatted images were generated to aid in evaluation. ?? COMPARISON: 03/29/2017 ?? FINDINGS: Pulmonary arteries: There are multiple long [...] IMPRESSION Multiple right PE as described above. Findings discussed with Dr. Cuevas at the time of this interpretation ?? ASSESSMENT & PLAN Jose Laws is a 66 y.o. 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 POD11. 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 Plan to remove crystal today Neurologic: Pain controlled with acetaminophen SHIRA; Sedated on fentanyl, propofol Cardiovascular: PRN BP and HR meds; diltiazem drip for A-fib Pulmonary: Intubated. CT-PE shows pulmonary embolism, started on heparin drip; albuterol PRN Gastrointestinal: Bisacodyl suppository PRN for constipation; zofran d/clay for long QT Genitourinary: Iqbal Musculoskeletal: Bedrest Nutrition: NPO diet (Give Meds); Nutrition consult for tube feeds - modify to tube feeds with propofol as per recs, Ok for ICU team to change this order as needed Infectious Disease: Peridex; on Pip-Tazo for pneumonia Hematology: WBC 12.2; Lactate 1.5 Endocrine: On insulin Prophylaxis: Lovenox, SCD; PPI Disposition: ICU Status, Full Code Discharge: Plan for d/c TBD; Needs TBD; Follow-up ENT with Dr. Contreras TBD __ Abigail Martino MD, PGY2 07/23/17 7:00 AM * Kaiden Gorman RCP - 07/23/2017 12:56 AM EDT AMV Protocol: Yes SBT Protocol: Yes SBT: Passed Vent Settings: Servo I Ventilator Mode: PS PEEP Set: 5 FiO2: 40 % PSV: 5 Ventilator Measurements: Resp: 14 Vt Spontaneous: 759 Ve: 9.6 SpO2: 97 % EtCO2: 33 mmHg SBT Assessment Initial Vent Settings: PS Initial Measurements: HR:63 RR: 14 VT: 796 MV: 11.6 SpO2: 96 ETCO2: 33 RASS (Zavala Agitation-Sedation Scale): -2-->light sedation Settings for SBT, if other than Protocol: CPAP SBT Vent Settings: PEEP: 5 30 minute measurements: HR: 75 RR: 18 VT: 680 MV: 11.8 SpO2: 93 ETCO2: 32 Assessment during SBT: passed without issue Airway: 7.5 @ 23 cm at the Teeth. Skin Integrity: WDL MDI Inhaled Medications: Albuterol Nebulized Medications: Racemic epinephrine Breath Sounds: Ronchi Secretions: large amounts of thick hdez suctioned Assessment / Events / Plan of the Day: Pt received on the above settings with a plan to rest overnight for SBT in AM * Russ Rogers, RT - 07/22/2017 2:50 PM EDT AMV Protocol: Yes SBT Protocol: Yes Vent Settings: Servo I Ventilator Mode: PS PEEP Set: 5 FiO2: 40 % PSV: 5 Ventilator Measurements: Resp: 12 Vt Spontaneous: 657 Ve: 11 SpO2: 93 % EtCO2: 36 mmHg Airway: 7.5 @ 23 cm at the Teeth. Skin Integrity: WDL MDI Inhaled Medications: Albuterol Prn Breath Sounds: rhonchi Secretions: large/hdez/thick Assessment / Events / Plan of the Day: ABG at 08 on 40% O2: 7.42/39/78/25/0. Provide MV per AMV protocol and conduct SBT per protocol. * Sony Oliva MD - 07/22/2017 12:02 PM EDT Critical Care Medicine Staff Inpatient Progress Note Author: Sony Oliva MD Patient seen and examined on critical care rounds. Jose Laws is a 66 y.o. male with the current active problems: ACTIVE PROBLEMS Patient Active Problem List Diagnosis Code ??? Carcinoma of base of tongue C01 ??? Pulmonary embolism I26.99 ??? Benign prostatic hyperplasia N40.0 ??? Atrial fibrillation I48.91 ??? KORI on CPAP G47.33, Z99.89 ??? Adult BMI 30+ E66.8 ??? Head and neck cancer C76.0 ??? Acute respiratory failure J96.00 Interval history: no worrisome events, pO2:FIO2 improved. My exam: Temp: [37.1 ??C (98.8 ??F)-38.2 ??C (100.8 ??F)] Heart Rate: [56-91] Resp: [13-25] BP: (103-130)/(48-89) SpO2: [87 %-100 %] Heart Rate from SPO2: [60 bpm-87 bpm] Body mass index is 38.74 kg/(m^2). Sedated, intubated Chest with delayed expiration Abdomen soft Extremities warm Other pertinent information: Intake/Output Summary (Last 24 hours) at 07/22/17 1202 Last data filed at 07/22/17 1000 Gross per 24 hour Intake 3421 ml Output 1785 ml Net 1636 ml Lab Results Component Value Date BILITOT 0.2 07/13/2017 Recent Labs 07/22/17 0310 PLATELET 168 Lab Results Component Value Date CREATININE 0.76 (L) 07/22/2017 Lab Results Component Value Date pH Art 7.42 07/22/2017 pO2 Art 78 (L) 07/22/2017 pCO2 Art 39 07/22/2017 ASSESSMENT, MANAGEMENT, and DECISION MAKING: improved, may be able to wean to extubate, anticipate need for CPAP after extubation. This patient will continue to need inpatient services for at least two days. IS PATIENT CRITICALLY ILL ? * Is there a high potential of sudden, clinically significant, or life threatening deterioration? YES/ * Is there a need for direct personal assessment and management to treat/prevent multiple vital organ failure/deterioration? YES / PATIENT IS CRITICALLY ILL WITH THESE DIAGNOSES BEING MANAGED BY [facility] TEAM: NEED AT LEAST ONE OF THESE DX to USE 38605 ARDS Stupor Hypoxemic Resp Failure (Fi02>50%) Delirium Alcohol Withdrawal x Pneumonia Reg Ventilator Acute Encephalopathy x Acute Respiratory Failure Chronic Respiratory Failure Pulmonary embolism Ascites Req Treatment Respiratory Acidosis Hypertensive Emergency Pneumonia Atelectasis Pleural Effusion Hyponatremia Acute adrenal insufficiency Metabolic Acidosis Metabolic Alkalosis Hypernatremia Arhrythmias x Atrial Fibrillation Atrial Flutter SVT Ventricular Shock Ebb Phase Flow Phase Congestive Heart Failure Systolic Diastolic Right Heart Hypotension Req Fluids Hyperkalemia Chronic Renal Failure Malnutrition Obesity/Morbid Obesity Hypotension Req Pressors Acute Drug Ingestion / Overdose Sepsis Bacteremia Acute Renal Failure Acute Kidney Injury Rhabdomyolysis SIRS - SEVERE From: SIRS - MODERATE From: SIRS - MILD From: Acute Liver failure PA Catheter Thrombocytopenia Coagulopathy DIC Cardiogenic shock Neutropenia Anaphylaxis Anemia Acute blood loss Post operative blood loss Acute Myocardial infarction Active Hemorrhage Coma Subarachnoid Hemorrhage Head trauma Subdural Hematoma Epidural Hematoma Intraparenchymal brain hemorrhage Intra-cranial Hypertension Cerebral edema Neuromuscular disorder of critical illness Paraplegia Quadraplegia Chest trauma Pneumothorax Tension pneumothorax Pulmonary contusion Rib fractures (#) Flail Chest Abdominal trauma Abdominal compartment syndrome Severe pancreatitis Infected pancreatic necrosis C. Diff colitis Perforated Viscus S/p emergent abdominal surgery Abdominal sepsis Intestinal ischemia Secondary peritonitis Tertiary peritonitis Anastomotic leak TIME spent on the unit excluding procedures - more than 50% of this time was spent in the planning and coordination of care for this patient. Rounds (15 ); review of radiographs on the unit ( ); review of outside/inside data (5 ); discussionwith other health care personnel ( ); discussion with primary service ( ); discussion with family (); note ( 10 ). I personally performed (30 ) minutes of aggregated critical care time exclusive of procedures and teaching. This includes time spent during direct patient evaluation and reassessment,interpreting diagnostic tests, directing life/and/or organ supporting interventions and documentation on the unit. * Abigail Martino MD - 07/22/2017 8:20 AM EDT OTOLARYNGOLOGY - HEAD & NECK SURGERY DAILY PROGRESS NOTE Name: Jose Laws Age/Sex: 66 y.o. male Attending: Sriram Contreras MD Hospital Day: 10 6 Days Post-Op Patient ID/Reason for Admission Jose Laws is a 66 y.o. 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 Interval History Intubated on ventilator at 40% On heparin for PE. Has not gotten diltiazem in past 24 hours. Cdiff negative. As per critical care notes, plan to treat and then extubate to CPAP. WBC at 12.2, overall afebrile overnight. Vitals Last value 24hr Range Temperature: 37.5 ??C (99.5 ??F) Temp: [37.1 ??C (98.8 ??F)-38.2 ??C (100.8 ??F)] Heart Rate: 73 Heart Rate: [60-91] Blood Pressure: 124/64 BP: (103-130)/(48-89) Respiratory Rate: 18 Resp: [12-25] SpO2: 95 % SpO2: [87 %-100 %] Intake & Output Intake/Output Summary (Last 24 hours) at 07/22/17 0820 Last data filed at 07/22/17 0600 Gross per 24 hour Intake 3674 ml Output 1855 ml Net 1819 ml Physical Exam General: NAD, non-ill appearing. Intubated Face: Symmetric without dysmorphic features Eyes: EOMI, conjunctiva healthy Ears: Auricles symmetric, no lesions Nose: Grossly normal appearance; Dopoff tube in place Oral Cavity/Pharynx: Mucosa is pink, oropharynx symmetric. No tongue edema, Tongue is compressible. Neck: Soft, trachea midline; with neck incision c/d/i with crystal with no hematoma/seroma. Chest: Ventilator breath equal BL, RR Neuro: Sedated, orally intubated. Labs Recent Labs 07/22/17 0310 07/21/17 2235 07/21/17 2110 07/21/17 0025 07/20/17 1650 07/19/17 1650 WBC 12.2* -- -- -- 10.0* < > -- < > -- HGB 12.5* -- -- -- 13.2* < > -- < > -- HCT 37.9* -- -- -- 39.4* < > -- < > -- PLATELET 168 -- -- -- 163 < > -- < > -- PTT 89* -- 87* < > -- < > -- -- -- NA 144 144 -- -- 146* -- 146* < > 144 K 3.9 4.0 -- < > 3.8 < > 3.9 < > 3.5 CL 106 107 -- -- 110* -- 110* < > 106 CO2 25 25 -- -- 25 -- 25 < > 23 BUN 23* 23* -- -- 22* -- 23* < > 19 CREATININE 0.76* 0.88 -- -- 0.79* -- 0.85 < > 0.79* GLUCOSE 121 135 -- -- 132 -- 143 < > 118 CALCIUM 8.3* 8.7 -- -- 8.5 -- 8.5 < > 8.7 MAGNESIUM -- 0.80 -- -- -- -- 1.00 -- 0.86 PHOS -- -- -- -- -- -- -- -- 3.0 < > = values in this interval not displayed. Imaging EXAMINATION: CTA chest for pulmonary arteries ?? CLINICAL HISTORY: acute respiratory decompensation s/p ENT surgery ?? TECHNIQUE: 3 mm thick axial contiguous sections were obtained through the chest via helical acquisition after the intravenous administration of 95 cc of Omnipaque-350. Thin-section reconstructions as well as coronal and sagittal MIP reformatted images were generated to aid in evaluation. ?? COMPARISON: 03/29/2017 ?? FINDINGS: Pulmonary arteries: There are multiple long [...] IMPRESSION Multiple right PE as described above. Findings discussed with Dr. Cuevas at the time of this interpretation ?? ASSESSMENT & PLAN Jose Laws is a 66 y.o. 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 POD10. 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 CT-PE shows pulmonary embolism, started on heparin drip; albuterol PRN Gastrointestinal: Bisacodyl suppository PRN for constipation; zofran d/clay for long QT Genitourinary: Iqbal Musculoskeletal: Bedrest Nutrition: NPO diet (Give Meds); Nutrition consult for tube feeds - modify to tube feeds with propofol as per recs, Ok for ICU team to change this order as needed Infectious Disease: Peridex; on Pip-Tazo for pneumonia Hematology: WBC 12.2; Lactate 1.5 Endocrine: On insulin Prophylaxis: Lovenox, SCD; PPI Disposition: ICU Status, Full Code Discharge: Plan for d/c TBD; Needs TBD; Follow-up ENT with Dr. Contreras TBD __ Abigail Martino MD, PGY2 07/22/17 8:20 AM * Kaiden Gorman RCP - 07/22/2017 5:07 AM EDT AMV Protocol: Yes SBT Protocol: Yes SBT: Passed Vent Settings: Servo I Ventilator Mode: (S) PS PEEP Set: 5 FiO2: 40 % PSV: (S) 5 Ventilator Measurements: Resp: 16 Vt Spontaneous: 658 Ve: 10.1 SpO2: 96 % EtCO2: 36 mmHg SBT Assessment Initial Vent Settings: PS Initial Measurements: HR:66 RR: 19 VT: 499 MV: 9.6 SpO2: 96 ETCO2: 34 RASS (Zavala Agitation-Sedation Scale): -3-->moderate sedation Settings for SBT, if other than Protocol: CPAP SBT Vent Settings: PEEP: 5 30 minute measurements: HR: 68 RR: 16 VT: 658 MV: 10.1 SpO2: 96 ETCO2: 36 Assessment during SBT: Passed without issue Airway: 7.5 @ 23 cm at the Teeth. Skin Integrity: WDL MDI Inhaled Medications: Albuterol Nebulized Medications: Racemic epinephrine Breath Sounds: Ronchi Secretions: copious amounts of thick hdez secretions Assessment / Events / Plan of the Day: PT received on the above setting at the start of the shift, rested overnight for SBT in AM * Russ Rogers, RT - 07/21/2017 4:51 PM EDT AMV Protocol: Yes SBT Protocol: Yes Vent Settings: Servo I Ventilator Mode: PS PEEP Set: 5 FiO2: 40 % PSV: 5 Ventilator Measurements: Resp: 18 Vt Spontaneous: 594 Ve: 11.6 SpO2: 90 % EtCO2: 31 mmHg Airway: 7.5 @ 23 cm at the Teeth. Skin Integrity: WDL MDI Inhaled Medications: Albuterol prn Breath Sounds: Rhonchi Secretions: Large/copious/hdez/thick Assessment / Events / Plan of the Day: ABG 0742 - 7.44/37/72/25/0 on 40% O2. Plan is keep on MV overnight per AMV protocol. Conduct SBT per protocol. Requiring large amount of suctioning. * Irene Montes RD - 07/21/2017 3:56 PM EDT Nutrition Progress Note Follow-up Tube Feeding Evaluation- Nutrition Services Reason for intervention: Follow up Recommendation(s)/Plan: The past 5 days pt has averaged 28% of goal volumes for enteral feeds. He has received only 1 dose of protein powder in the past 5 days. TF only running at 60 ml/hr, please increase to 65 ml/hr while on propofol and start giving proteinpowder. Propofol at current rate will provide 678 calories from lipid daily - please check TG level. I was able to reach the patient's provider, Red 1 [phone], regarding above. Monitor weight. Jose Laws is a 66 y.o. male Principal Problem: Head and neck cancer Active Problems: Pulmonary embolism Overview: Recurrent. Atrial fibrillation Overview: March 2017: noted in ED [place] [facility] Previously noted to be paroxysmal. No awareness. CHADS2-VASc=1 (age). Started on apixaban for PE Acute respiratory failure Overview: Worsening oxygenation. KORI on CPAP Adult BMI 30+ Estimated body mass index is 38.74 kg/(m^2) as calculated from the following: Height as of this encounter: 191.8 cm (6' 3.51). Weight as of this encounter: 142.5 kg (314 lb 2.5 oz). Admit Wt: 133.36 kg Type of access: DHT I/O last 3 completed shifts: In: 3110.5 [I.V.:1535.5; Other:40; NG/GT:1535] Out: 2894 [Urine:2890; Other:4] Average daily TF intake (past 5 days): 362 ml versus daily goal of 1300 ml Last BM: today Residuals: wnl Pertinent Meds: propofol, liquid tylenol prn, others noted. Lab Results Component Value Date NA 146 (H) 07/21/2017 K 3.8 07/21/2017 CL 110 (H) 07/21/2017 CO2 25 07/21/2017 BUN 22 (H) 07/21/2017 CREATININE 0.79 (L) 07/21/2017 GLUCOSE 132 07/21/2017 MAGNESIUM 1.00 07/20/2017 CALCIUM 8.5 07/21/2017 PHOS 3.0 07/19/2017 AST 15 07/13/2017 ALT 13 07/13/2017 ALKPHOS 70 07/13/2017 BILITOT 0.2 07/13/2017 Current Tube Feeding: Peptamen Intense VHP at 65 ml per hour to provide volume of 1300 ml plus 6 scoops Beneprotein powder per day. (This rate is calculated to compensate for unplanned time off feedings due to potential procedures, etc.). 1450 kcal, 156 gm protein, 1092 ml water from formula (plus ~ 300 ml additional free water to mix protein powder), 87% of RDI's for vitamins and minerals. KATHY JASSO * Sony Oliva MD - 07/21/2017 12:28 PM EDT Critical Care Medicine Staff Inpatient Progress Note Author: Sony Oliva MD Patient seen and examined on critical care rounds. Jose Laws is a 66 y.o. male with the current active problems: ACTIVE PROBLEMS Patient Active Problem List Diagnosis Code ??? Carcinoma of base of tongue C01 ??? Pulmonary embolism I26.99 ??? Benign prostatic hyperplasia N40.0 ??? Atrial fibrillation I48.91 ??? KORI on CPAP G47.33, Z99.89 ??? Adult BMI 30+ E66.8 ??? Head and neck cancer C76.0 ??? Acute respiratory failure J96.00 Interval history: CT of chest shows pulmonary embolism and consolidation of lower lung regions L>R. Sputum + for gram - viktor. My exam: Temp: [37.1 ??C (98.8 ??F)-37.9 ??C (100.2 ??F)] Heart Rate: [60-93] Resp: [12-29] BP: -- SpO2: [91 %-99 %] Heart Rate from SPO2: [60 bpm-92 bpm] Body mass index is 38.74 kg/(m^2). Sedated, intubated Course bs Abdomen distended but soft Extremities warm Other pertinent information: Intake/Output Summary (Last 24 hours) at 07/21/17 1229 Last data filed at 07/21/17 1000 Gross per 24 hour Intake 2558 ml Output 1675 ml Net 883 ml Lab Results Component Value Date BILITOT 0.2 07/13/2017 Recent Labs 07/21/17 0025 PLATELET 163 Lab Results Component Value Date CREATININE 0.79 (L) 07/21/2017 Lab Results Component Value Date pH Art 7.44 07/21/2017 pO2 Art 72 (L) 07/21/2017 pCO2 Art 37 07/21/2017 ASSESSMENT, MANAGEMENT, and DECISION MAKING: recurrent PE (details of prior episode unknown at present), probable pneumonia. Will provide treatment for another day prior to considering extubation. Plan to extubate to CPAP considering his underlying KORI. This patient will continue to need inpatient services for at least two days. IS PATIENT CRITICALLY ILL ? * Is there a high potential of sudden, clinically significant, or life threatening deterioration? YES/ * Is there a need for direct personal assessment and management to treat/prevent multiple vital organ failure/deterioration? YES / PATIENT IS CRITICALLY ILL WITH THESE DIAGNOSES BEING MANAGED BY [facility] TEAM: NEED AT LEAST ONE OF THESE DX to USE 19899 ARDS Stupor Hypoxemic Resp Failure (Fi02>50%) Delirium Alcohol Withdrawal Pneumonia Reg Ventilator Acute Encephalopathy x Acute Respiratory Failure Chronic Respiratory Failure Ascites Req Treatment Respiratory Acidosis Hypertensive Emergency Pneumonia Atelectasis Pleural Effusion Hyponatremia Acute adrenal insufficiency Metabolic Acidosis Metabolic Alkalosis Hypernatremia Arhrythmias Atrial Fibrillation Atrial Flutter SVT Ventricular Shock Ebb Phase Flow Phase Congestive Heart Failure Systolic Diastolic Right Heart Hypotension Req Fluids x Hyperkalemia Chronic Renal Failure Malnutrition Obesity/Morbid Obesity Hypotension Req Pressors Acute Drug Ingestion / Overdose Sepsis Bacteremia Acute Renal Failure Acute Kidney Injury Rhabdomyolysis SIRS - SEVERE From: SIRS - MODERATE From: SIRS - MILD From: Acute Liver failure PA Catheter Thrombocytopenia Coagulopathy DIC Cardiogenic shock Neutropenia Anaphylaxis Anemia Acute blood loss Post operative blood loss Acute Myocardial infarction Active Hemorrhage Coma Subarachnoid Hemorrhage Head trauma Subdural Hematoma Epidural Hematoma Intraparenchymal brain hemorrhage Intra-cranial Hypertension Cerebral edema Neuromuscular disorder of critical illness Paraplegia Quadraplegia Chest trauma Pneumothorax Tension pneumothorax Pulmonary contusion Rib fractures (#) Flail Chest Abdominal trauma Abdominal compartment syndrome Severe pancreatitis Infected pancreatic necrosis C. Diff colitis Perforated Viscus S/p emergent abdominal surgery Abdominal sepsis Intestinal ischemia Secondary peritonitis Tertiary peritonitis Anastomotic leak TIME spent on the unit excluding procedures - more than 50% of this time was spent in the planning and coordination of care for this patient. Rounds (15 ); review of radiographs on the unit (5 ); review of outside/inside data (5 ); discussion with other health care personnel ( ); discussion with primary service ( ); discussion with family ( ); note (10 ). I personally performed (35 ) minutes of aggregated critical care time exclusive of procedures and teaching. This includes time spent during direct patient evaluation and reassessment,interpreting diagnostic tests, directing life/and/or organ supporting interventions and documentation on the unit. * Abigail Martino MD - 07/21/2017 7:18 AM EDT OTOLARYNGOLOGY - HEAD & NECK SURGERY DAILY PROGRESS NOTE Name: Jose Laws Age/Sex: 66 y.o. male Attending: Sriram Contreras MD Hospital Day: 9 5 Days Post-Op Patient ID/Reason for Admission Jose Laws is a 66 y.o. 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 Interval History Intubated on ventilator at 40% Yesterday got CT-PE, found pulmonary embolism, started heparin drip. Took out JYOTHI drains yesterday AM. ABG results improved. We took down the difficult airway sign above the bed as we visualized the patient under DL in the OR s/p tumor resection and during the re-intubation for respiratory distress and it is a grade 1 airway and patient can be easily orally intubated. Vitals Last value 24hr Range Temperature: 37.6 ??C (99.7 ??F) Temp: [37.4 ??C (99.3 ??F)-37.9 ??C (100.2 ??F)] Heart Rate: 67 Heart Rate: [50-93] Blood Pressure: 125/61 BP: -- Respiratory Rate: 18 Resp: [13-29] SpO2: 92 % SpO2: [91 %-100 %] Intake & Output Intake/Output Summary (Last 24 hours) at 07/21/17 0718 Last data filed at 07/21/17 0601 Gross per 24 hour Intake 2300 ml Output 1810 ml Net 490 ml Physical Exam General: NAD, non-ill appearing. Intubated Face: Symmetric without dysmorphic features Eyes: EOMI, conjunctiva healthy Ears: Auricles symmetric, no lesions Nose: Grossly normal appearance; Dopoff tube in place Oral Cavity/Pharynx: Mucosa is pink, oropharynx symmetric. Less tongue edema, Tongue is compressible. Neck: Soft, trachea midline; with neck incision c/d/i with crystal with no hematoma/seroma. Chest: Ventilator breath equal BL, RR Neuro: Sedated, orally intubated. Labs Recent Labs 07/21/17 0320 07/21/17 0105 07/21/17 0025 07/20/17 1715 07/20/17 1650 07/19/17 1650 WBC -- -- 10.0* -- 10.0* -- < > -- HGB -- -- 13.2* -- 13.3* -- < > -- HCT -- -- 39.4* -- 39.9* -- < > -- PLATELET -- -- 163 -- 163 -- < > -- PTT -- 42* -- -- 28 -- -- -- NA -- -- 146* -- -- 146* < > 144 K 4.0 -- 3.8 < > -- 3.9 < > 3.5 CL -- -- 110* -- -- 110* < > 106 CO2 -- -- 25 -- -- 25 < > 23 BUN -- -- 22* -- -- 23* < > 19 CREATININE -- -- 0.79* -- -- 0.85 < > 0.79* GLUCOSE -- -- 132 -- -- 143 < > 118 CALCIUM -- -- 8.5 -- -- 8.5 < > 8.7 MAGNESIUM -- -- -- -- -- 1.00 -- 0.86 PHOS -- -- -- -- -- -- -- 3.0 < > = values in this interval not displayed. Imaging EXAMINATION: CTA chest for pulmonary arteries ?? CLINICAL HISTORY: acute respiratory decompensation s/p ENT surgery ?? TECHNIQUE: 3 mm thick axial contiguous sections were obtained through the chest via helical acquisition after the intravenous administration of 95 cc of Omnipaque-350. Thin-section reconstructions as well as coronal and sagittal MIP reformatted images were generated to aid in evaluation. ?? COMPARISON: 03/29/2017 ?? FINDINGS: Pulmonary arteries: There are multiple long [...] IMPRESSION Multiple right PE as described above. Findings discussed with Dr. Cuevas at the time of this interpretation ?? ASSESSMENT & PLAN Jose Laws is a 66 y.o. 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 POD9. Now intubated again s/p respiratory distress and PO2 of 66 Surgical/Head&Neck: Neck incision with aquaphor; Final path is pending Neurologic: Pain controlled with acetaminophen SHIRA; Sedated on fentanyl, propofol Cardiovascular: PRN BP and HR meds; diltiazem drip for A-fib Pulmonary: Intubated. CT-PE shows pulmonary embolism, started on heparin drip Gastrointestinal: Bisacodyl suppository PRN for constipation; zofran d/clay for long QT Genitourinary: Iqbal Musculoskeletal: Bedrest Nutrition: NPO diet (Give Meds); Nutrition consult for tube feeds - modify to tube feeds with propofol as per recs, Ok for ICU team to change this order as needed Infectious Disease: Unasyn d/clay; Peridex Hematology: WBC 10; Lactate 1.1 Endocrine: On insulin Prophylaxis: Lovenox, SCD; PPI Disposition: ICU Status, Full Code Discharge: Plan for d/c TBD; Needs TBD; Follow-up ENT with Dr. Contreras TBD __ Abigail Martino MD, PGY2 07/21/17 7:18 AM * Beena Saini RCP - 07/21/2017 5:20 AM EDT AMV Protocol: Yes SBT Protocol: Yes SBT: Passed Vent Settings: Servo I Ventilator Mode: PS PS 8 PEEP Set: 5 FiO2: 40 % Ventilator Measurements: Resp: 16 Vt Spontaneous: 439 Ve: 10.5 SpO2: 98 % EtCO2: 36 mmHg Airway: 7.5 @ 23 cm at the Teeth. Skin Integrity: WDL MDI Inhaled Medications: Albuterol Q4PRN Secretions: large thick hdez Assessment / Events / Plan of the Day: Pt remains on above vent settings. No changes made this shift. Will continue to follow. * Sylvia Vaughn MD - 07/20/2017 4:33 PM EDT Asked to advise with markedly prolonged QTc. (Under lock-down conditions). MAR reviewed. Will discontinue haldol and ondansetron. Continue close monitoring. Magnesium has been administered today. Will send BMP and magnesium levels. Temp: [37.5 ??C (99.5 ??F)-39 ??C (102.2 ??F)] Heart Rate: [50-161] Resp: [12-37] BP: (91-170)/(49-135) * Marbin Gutiérrez RCP - 07/20/2017 4:21 PM EDT AMV Protocol: Yes SBT Protocol: Yes Vent Settings: Servo I Ventilator Mode: PS PEEP Set: 5 FiO2: 40 % PSV: 8 Ventilator Measurements: Resp: 18 Vt Spontaneous: 702 Ve:12 SpO2: 99 % EtCO2: 33 mmHg Airway: 7.5 @ 23 cm at the Teeth. Skin Integrity: WDL MDI Inhaled Medications: Albuterol Breath Sounds: coarse Secretions: Moderate /large amounts of thick hdez Assessment / Events / Plan of the Day: received Jose intubated yesterday for hypoxemic failure with a 7.5 ETT as above. In PSV of 10/5 and 50% this morning. He is sedated but maintaining minute volume and will slowly wake to loud voice. He has a strong cough that produces thick, easily suctionedsecretions. He has filled a few HMEs today. No big changes today. Reduced PS to 8 based on large tidal volumes. FiO2 down to 40 with good saturations. We will continue with AMV protocol and attempt SBT if appropriate * Abigail Martino MD - 07/20/2017 7:21 AM EDT OTOLARYNGOLOGY - HEAD & NECK SURGERY DAILY PROGRESS NOTE Name: Jose Laws Age/Sex: 66 y.o. male Attending: Sriram Contreras MD Hospital Day: 8 4 Days Post-Op Patient ID/Reason for Admission Jose Laws is a 66 y.o. 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 Interval History Yesterday events of a-fib on dilt drip. Had several episodes of incontinent stool. Blood gas ph 7.5, pCO2 29, PO2 77. Has been febrile 37.9. Drains not putting out too much, will pull today. Yesterday was intubated again around 6 PM when PO2 66 and pt in respiratory distress. Vitals Last value 24hr Range Temperature: 37.8 ??C (100 ??F) Temp: [37.4 ??C (99.3 ??F)-39 ??C (102.2 ??F)] Heart Rate: 67 Heart Rate: [55-161] Blood Pressure: 125/61 BP: (91-170)/(49-135) Respiratory Rate: 22 Resp: [12-37] SpO2: 94 % SpO2: [85 %-100 %] Intake & Output Intake/Output Summary (Last 24 hours) at 07/20/17 0721 Last data filed at 07/20/17 0609 Gross per 24 hour Intake 1146.5 ml Output 1924 ml Net -777.5 ml Physical Exam General: NAD, non-ill appearing. Intubated Face: Symmetric without dysmorphic features Eyes: EOMI, conjunctiva healthy Ears: Auricles symmetric, no lesions Nose: Grossly normal appearance; Dopoff tube in place Oral Cavity/Pharynx: Mucosa is pink, oropharynx symmetric. Tongue is compressible. Some bruising onthe R lateral tongue. Neck: Soft, trachea midline; with neck incision c/d/i with crystal with no hematoma/seroma. 2 JYOTHI neck drains with very minimal serosanguinous output Chest: Ventilator breath equal BL, RR Neuro: Sedated, orally intubated. Labs Recent Labs 07/20/17 0315 07/19/17 2330 07/19/17 1650 07/19/17 0230 07/18/17 0220 WBC 10.7* -- -- -- 12.8* 10.7* HGB 13.7 -- -- -- 13.5* 13.6* HCT 39.6* -- -- -- 38.6* 38.8* PLATELET 186 -- -- -- 176 147 NA 143 -- 144 -- 144 145 K 3.9 3.9 3.5 < > 3.4* 3.7 CL 106 -- 106 -- 106 105 CO2 23 -- 23 -- 23 25 BUN 23* -- 19 -- 23* 22* CREATININE 0.97 -- 0.79* -- 0.87 0.74* GLUCOSE 126 -- 118 -- 102 181 CALCIUM 8.5 -- 8.7 -- 8.5 8.8 MAGNESIUM -- -- 0.86 -- -- 1.09* PHOS -- -- 3.0 -- -- -- < > = values in this interval not displayed. Imaging EXAMINATION: XR CHEST PA OR AP 1 VIEW ?? CLINICAL HISTORY: check ETT and DHT placement ?? TECHNIQUE: Portable 45 degree AP ?? COMPARISON: None ?? FINDINGS: Tip of endotracheal tube is 6 cm above the shelli, mid trachea, and projects over T3 vertebra. Dobbhoff tube tip is in the gastric body. No kinking. Hypoinflated lungs, platelike atelectasis right lung base. No dense airspace consolidation. ?? IMPRESSION ET tube in mid trachea. Dobbhoff tube tip in the gastric body with no Redundancy. EXAMINATION: CT NECK SOFT TISSUE W CONTRAST (GENERIC) ?? CLINICAL HISTORY: Intraoperative CT for navigation ?? TECHNIQUE: CT acquired of the upper neck for intraoperative navigation after administration of intravenous contrast. ?? COMPARISON: Neck CT 03/18/[address] 2016. ?? FINDINGS: The right base of tongue mass now appears across midline and there is increased extent along the right lateral pharyngeal wall. Increased thickening and abnormal enhancement of the epiglottis. Artifact makes evaluation of the aryepiglottic folds limited. No lymphadenopathy within the partially imaged neck. ?? IMPRESSION CT for intraoperative guidance. Increased extent of neoplasm as described above. ?? ASSESSMENT & PLAN Jose Laws is a 66 y.o. 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 POD7. Now intubated again s/p respiratory distress and PO2 of 66 Surgical/Head&Neck: Neck incision with aquaphor; 2 JYOTHI drains; Final path is pending Neurologic: Pain controlled with acetaminophen SHIRA, oxycodone PRN. Cardiovascular: Metoprolol SHIRA for BP Pulmonary: Intubated. Investigate with repeat chest x-ray Gastrointestinal: Miralax SIHRA, Bisacodyl suppository PRN for constipation; zofran PRN for nausea Genitourinary: No issues Musculoskeletal: Bedrest Nutrition: NPO diet (Give Meds) ; Nutrition consult for tube feeds - modify to tube feeds with propofol as per recs, Ok for ICU team to change this order as needed Infectious Disease: Unasyn d/clay; Peridex Hematology: WBC 10.7; Lactate 1.6 Endocrine: No issues Prophylaxis: Lovenox, SCD; PPI Disposition: ICU Status, Full Code Discharge: Plan for d/c TBD; Needs TBD; Follow-up ENT with Dr. Contreras TBD __ Abigail Martino MD, PGY2 07/20/17 7:21 AM * Kaiden Gorman, [facility] - 07/20/2017 4:35 AM EDT AMV Protocol: Yes SBT Protocol: Yes SBT: Passed Vent Settings: Servo I Ventilator Mode: (S) CPAP PEEP Set: 5 FiO2: 50 % PSV: (S) 0 Ventilator Measurements: Resp: 18 Vt Spontaneous: 709 Ve: 12.8 SpO2: 94 % EtCO2: 35 mmHg SBT Assessment Initial Vent Settings: PS FIO2 50% PEEP 5 PS 10 Initial Measurements: HR:62 RR: 18 VT: 709 MV: 12.8 SpO2: 94% ETCO2: 35 RASS (Zavala Agitation-Sedation Scale): -2-->light sedation Settings for SBT, if other than Protocol: CPAP SBT Vent Settings: FiO2: 50% PEEP 5 30 minute measurements: HR: 65 RR: 19 VT: 686 MV: 12.0 SpO2: 96% ETCO2: 36 Assessment during SBT: Passed without issue Airway: 7.5 @ 23 cm at the Teeth. Skin Integrity: WDL MDI Inhaled Medications: Albuterol Nebulized Medications: Racemic epinephrine Breath Sounds: Diminished Secretions: moderate amount of thick hdez suctioned Assessment / Events / Plan of the Day: Pt switched at the beginning of the shift from SIMV VOl + PSRR 12 VT 680 FIO2 50% PEEP 5 to PS FIO2 50% PEEP 5 PS 12 ABG drawn at 23:36 7.51/28/76/22 PS reduced from 12 to 10, rest overnight for SBT in AM * Miguelina Puente RT - 07/19/2017 6:03 PM EDT AMV Protocol: Yes SBT Protocol: Yes Vent Settings: Servo I Ventilator Mode: SIMV Vol + PS PEEP Set: 5 FiO2: 50 % PSV: 10 Ventilator Measurements: Resp: 12 Vt Spontaneous: 887 Ve: 9.3 SpO2: 94 % EtCO2: 54 mmHg Airway: 7.5 @ 23 cm at the Teeth. Skin Integrity: WDL MDI Inhaled Medications: Albuterol Breath Sounds: rhonchi Secretions: small hdez thick Assessment / Events / Plan of the Day: Received pt on HFNC 40 lpm 45%. Pt FiO2 increased to 50% andplaced on HF mask. Abg drawn @ 1200 7.5/32/60/23. Pt became tachycardic and hypoxic placed on 100% FiO2, ABG 17:12 7.49/32/66/23. Pt orally intubated and placed on SIMV above settings. Continue to monitor. * Sony Oliva MD - 07/19/2017 3:24 PM EDT Critical Care Medicine Staff Inpatient Progress Note Author: Sony Oliva MD Patient seen and examined on critical care rounds. Jose Laws is a 66 y.o. male with the current active problems: ACTIVE PROBLEMS Patient Active Problem List Diagnosis Code ??? Carcinoma of base of tongue C01 ??? Acute pulmonary embolism I26.99 ??? Benign prostatic hyperplasia N40.0 ??? Atrial fibrillation I48.91 ??? KORI on CPAP G47.33, Z99.89 ??? Adult BMI 30+ E66.8 ??? Head and neck cancer C76.0 Interval history: no worrisome events, still receiving high flow supplemental oxygen. Report of complaint of pain with coughing. My exam: Temp: [37.4 ??C (99.3 ??F)-38.1 ??C (100.6 ??F)] Heart Rate: [52-89] Resp: [16-26] BP: (132-162)/(62-84) SpO2: [91 %-98 %] Heart Rate from SPO2: [52 bpm-91 bpm] Body mass index is 38.74 kg/(m^2). Eyes closed, repeatedly coughing. Breathing through his mouth, nasal cannulae in place Chest with delayed expiration. Other pertinent information: Intake/Output Summary (Last 24 hours) at 07/19/17 1524 Last data filed at 07/19/17 1400 Gross per 24 hour Intake 657 ml Output 2750 ml Net -2093 ml Lab Results Component Value Date BILITOT 0.2 07/13/2017 Recent Labs 07/19/17 0230 PLATELET 176 Lab Results Component Value Date CREATININE 0.87 07/19/2017 Lab Results Component Value Date pH Art 7.50 (H) 07/19/2017 pO2 Art 60 (L) 07/19/2017 pCO2 Art 32 (L) 07/19/2017 CXR with improved expansion over previous. ASSESSMENT, MANAGEMENT, and DECISION MAKING: looks like a mouth breather with underlying KORI/restrictive lung disease. Able to exhale CO2 but oxygenation is poor. Will try to sit up, apply oxygen to the face. This patient will continue to need inpatient services for at least two days. IS PATIENT CRITICALLY ILL ? * Is there a high potential of sudden, clinically significant, or life threatening deterioration? YES/ NO * Is there a need for direct personal assessment and management to treat/prevent multiple vital organ failure/deterioration? YES / NO PATIENT IS CRITICALLY ILL WITH THESE DIAGNOSES BEING MANAGED BY CCS TEAM: NEED AT LEAST ONE OF THESE DX to USE 77062 ARDS Stupor Hypoxemic Resp Failure (Fi02>50%) Delirium Alcohol Withdrawal Pneumonia Reg Ventilator Acute Encephalopathy Acute Respiratory Failure Chronic Respiratory Failure Ascites Req Treatment Respiratory Acidosis Hypertensive Emergency Pneumonia Atelectasis Pleural Effusion Hyponatremia Acute adrenal insufficiency Metabolic Acidosis Metabolic Alkalosis Hypernatremia Arhrythmias Atrial Fibrillation Atrial Flutter SVT Ventricular Shock Ebb Phase Flow Phase Congestive Heart Failure Systolic Diastolic Right Heart Hypotension Req Fluids Hyperkalemia Chronic Renal Failure Malnutrition Obesity/Morbid Obesity Hypotension Req Pressors Acute Drug Ingestion / Overdose Sepsis Bacteremia Acute Renal Failure Acute Kidney Injury Rhabdomyolysis SIRS - SEVERE From: SIRS - MODERATE From: SIRS - MILD From: Acute Liver failure PA Catheter Thrombocytopenia Coagulopathy DIC Cardiogenic shock Neutropenia Anaphylaxis Anemia Acute blood loss Post operative blood loss Acute Myocardial infarction Active Hemorrhage Coma Subarachnoid Hemorrhage Head trauma Subdural Hematoma Epidural Hematoma Intraparenchymal brain hemorrhage Intra-cranial Hypertension Cerebral edema Neuromuscular disorder of critical illness Paraplegia Quadraplegia Chest trauma Pneumothorax Tension pneumothorax Pulmonary contusion Rib fractures (#) Flail Chest Abdominal trauma Abdominal compartment syndrome Severe pancreatitis Infected pancreatic necrosis C. Diff colitis Perforated Viscus S/p emergent abdominal surgery Abdominal sepsis Intestinal ischemia Secondary peritonitis Tertiary peritonitis Anastomotic leak TIME spent on the unit excluding procedures - more than 50% of this time was spent in the planning and coordination of care for this patient. Rounds ( ); review of radiographs on the unit ( ); review of outside/inside data ( ); discussion with other health care personnel ( ); discussion with primary service ( ); discussion with family ( );note ( ). I personally performed ( ) minutes of aggregated critical care time exclusive of procedures and teaching. This includes time spent during direct patient evaluation and reassessment, interpreting diagnostic tests, directing life/and/or organ supporting interventions and documentation on the unit. * Abigail Martino MD - 07/19/2017 7:50 AM EDT OTOLARYNGOLOGY - HEAD & NECK SURGERY DAILY PROGRESS NOTE Name: Jose Laws Age/Sex: 66 y.o. male Attending: Sriram Contreras MD Hospital Day: 7 3 Days Post-Op Patient ID/Reason for Admission Jose Laws is a 66 y.o. 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 Interval History -Extubated over the weekend; now on high-flow NC -Continues to be delirious Nursing reports disoriented to self, pulling at lines. Started tube feeds. PCO2 32.2 Vitals Last value 24hr Range Temperature: 37.8 ??C (100 ??F) Temp: [37 ??C (98.6 ??F)-37.8 ??C (100 ??F)] Heart Rate: 62 Heart Rate: [52-89] Blood Pressure: 144/63 BP: (132-146)/(62-84) Respiratory Rate: 17 Resp: [14-25] SpO2: 97 % SpO2: [93 %-98 %] Intake & Output Intake/Output Summary (Last 24 hours) at 07/19/17 0750 Last data filed at 07/19/17 0600 Gross per 24 hour Intake 562 ml Output 3220 ml Net -2658 ml Physical Exam General: NAD, non-ill appearing Face: Symmetric without dysmorphic features Eyes: EOMI, conjunctiva healthy Ears: Auricles symmetric, no lesions Nose: Grossly normal appearance; Dopoff tube in place, Cook catheter in L nares Oral Cavity/Pharynx: Mucosa is pink, oropharynx symmetric. Tongue is compressible. Some bruising onthe R lateral tongue. Neck: Soft, trachea midline; with neck incision c/d/i with crystal with no hematoma/seroma. 2 JYOTHI neck drains with very minimal serosanguinous output Chest: breath sounds equal BL, RRR Neuro: Slightly delirious, not agitated Labs Recent Labs 07/19/17 0230 07/18/17 0220 07/17/17 2210 WBC 12.8* 10.7* -- HGB 13.5* 13.6* -- HCT 38.6* 38.8* -- PLATELET 176 147 -- NA 144 145 -- K 3.4* 3.7 -- CL 106 105 -- CO2 23 25 -- BUN 23* 22* -- CREATININE 0.87 0.74* -- GLUCOSE 102 181 -- CALCIUM 8.5 8.8 -- MAGNESIUM -- 1.09* 0.87 Imaging EXAMINATION: XR CHEST PA OR AP 1 VIEW ?? CLINICAL HISTORY: check ETT and DHT placement ?? TECHNIQUE: Portable 45 degree AP ?? COMPARISON: None ?? FINDINGS: Tip of endotracheal tube is 6 cm above the shelli, mid trachea, and projects over T3 vertebra. Dobbhoff tube tip is in the gastric body. No kinking. Hypoinflated lungs, platelike atelectasis right lung base. No dense airspace consolidation. ?? IMPRESSION ET tube in mid trachea. Dobbhoff tube tip in the gastric body with no Redundancy. EXAMINATION: CT NECK SOFT TISSUE W CONTRAST (GENERIC) ?? CLINICAL HISTORY: Intraoperative CT for navigation ?? TECHNIQUE: CT acquired of the upper neck for intraoperative navigation after administration of intravenous contrast. ?? COMPARISON: Neck CT 03/18/[address] 2016. ?? FINDINGS: The right base of tongue mass now appears across midline and there is increased extent along the right lateral pharyngeal wall. Increased thickening and abnormal enhancement of the epiglottis. Artifact makes evaluation of the aryepiglottic folds limited. No lymphadenopathy within the partially imaged neck. ?? IMPRESSION CT for intraoperative guidance. Increased extent of neoplasm as described above. ?? ASSESSMENT & PLAN Jose Laws is a 66 y.o. 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 POD6. Now extuabated Surgical/Head&Neck: Neck incision with aquaphor; 2 JYOTHI drains; Final path is pending Neurologic: Pain controlled with acetaminophen SHIRA, oxycodone PRN. Delirium continues. Recommend moving to patient to room with window and keeping lights on during the daytime, frequent reorientation Cardiovascular: Metoprolol SHIRA for BP Pulmonary: Extubated and maintaining sats well on high-flow NC. Gastrointestinal: Miralax SHIRA, Bisacodyl suppository PRN for constipation; zofran PRN for nausea Genitourinary: No issues Musculoskeletal: Bedrest Nutrition: NPO diet (Give Meds) ; Nutrition consult for tube feeds - will modify when off propofol as per recs, Ok for ICU team to change this order as needed Infectious Disease: Unasyn d/clay; Peridex Hematology: WBC 12.8. Elevated lactate over weekend, downtrending now at 1.3 Endocrine: No issues Prophylaxis: Lovenox, SCD; PPI Disposition: ICU Status, Full Code Discharge: Plan for d/c TBD; Needs TBD; Follow-up ENT with Dr. Contreras TBD __ Abigail Martino MD, PGY2 07/19/17 7:50 AM * Jeannie Jewell RCP - 07/18/2017 9:31 PM EDT 07/18/17 1921 Oxygen Therapy Patient Type Adult O2 Device High flow nasal cannula O2 Flow Rate (L/min) 40 L/min FiO2 (%) 50 % (pt found on this setting) SpO2 97 % Resp 22 Airway Temp 31 ??C (87.8 ??F) Humid. H2O Level (mL) (good) Breath Sounds Breath Sounds Bilateral Rhonchi Pt coughing up loose secretions this shift and able to swallow them. 2320: pt. weaned to 45% 2353 AB.49, 32, 61, 24 on FIO2 of 45% Wean if able and continue to monitor and support. * Miguelina Puente RT - 07/18/2017 3:11 PM EDT Respiratory Care High Flow Therapy O2 Device: High flow nasal cannula O2 Flow Rate (L/min): 40 L/min FiO2 (%): 40 % SpO2: 95 % Resp: 20 ABG: @ 17:22 7.54//55/25.9 MDI Inhaled Medications: Albuterol PRN Lung Sounds: Clear Assessment: Received pt on HFNC 40 LPM 60% FiO2. Pt titrated to 40% FiO2 throughout shift and tolerating well. Pt has good productive cough. Increased FiO2 to 50% after ABG @ 17:22 /. Plan: Continue to titrate FiO2 as tolerated and monitor. Miguelina Puente, RT <> 07/18/2017 <> 3:11 PM * Salazar Bhagat MD - 07/18/2017 1:41 PM EDT Critical Care Attending Red 1 PROGRESS NOTE Author: Salazar Bhagat MD Patient seen and examined on critical care rounds. Problem List: Arthritis Atrial fibrillation BPH Hypothyroidism Pulmonary embolism Supraglottic airway edema Tongue squamous cell cancer 24 Hour Events: POD 4 S/P radical neck dissection with pharyngectomy and partial glossectomy for base of tongue cancer. Extubated in the ICU yesterday. Nicardipine started 2/2 hypertension to the 200s systolic. Agitated and delirious overnight. Physical Exam Last value Range last 24 hrs Temperature Temp: 37.3 ??C (99.1 ??F) Temp: [36 ??C (96.8 ??F)-37.4 ??C (99.3 ??F)] Heart Rate Heart Rate: 70 Heart Rate: [45-79] Blood Pressure BP: 136/58 BP: -- Respiratory Rate Resp: 14 Resp: [10-21] SpO2 SpO2: 97 % SpO2: [93 %-98 %] General: Awake, staring at the ceiling. Restless and moving legs over the side of the bed HEENT: R nare with DHT bridled in place. 2 JPs in R neck with serosanguinous output. Incision appears c/d/i Lungs: coarse bs bilat. Productive cough Cardiac: RRR Abdomen: soft, non-distended, obese habitus Extremities: warm, well perfused Neuro: opens eyes to command, not oriented to place. Labs: CMP Recent Labs 07/18/17 1147 07/18/17 0756 07/18/17 0355 07/18/17 0220 07/17/17 2336 07/17/17 2210 07/17/17 1951 07/17/17 1520 07/17/17 1250 07/17/17 0030 07/16/17 0400 07/15/17 1020 07/14/17 2020 07/14/17 1630 07/14/17 0036 07/13/17 2133 07/13/17 1256 NA -- -- -- 145 -- -- -- -- -- -- 137 144 143 -- -- -- 144 Not Perf -- 142 K -- -- -- 3.7 -- -- -- -- -- -- 4.7 4.2 4.0 -- 4.4 -- 4.5 Not Perf -- 5.7* CL -- -- -- 105 -- -- -- -- -- -- 103 106 107 -- -- -- 108* Not Perf -- 108* BUN -- -- -- 22* -- -- -- -- -- -- 17 16 19 -- -- -- 16 17 -- 17 CREATININE -- -- -- 0.74* -- -- -- -- -- -- 0.73* 0.82 0.96 -- -- -- 0.97 1.16 -- 1.06 CO2 -- -- -- 25 -- -- -- -- -- -- 21* 21* 22 -- -- -- 19* 18* -- 20* GLUCOSE -- -- -- 181 -- -- -- -- -- -- 246* 131 111 -- -- -- 161 147 -- 155 ANIONGAP -- -- -- 15 -- -- -- -- -- -- 13 17* 14 -- -- -- 17* Not Calculated -- 14 CALCIUM -- -- -- 8.8 -- -- -- -- -- -- 8.3* 8.1* 8.2* -- -- -- 7.7* 7.3* -- 7.9* MAGNESIUM -- -- -- -- -- 0.87 -- -- -- -- -- 0.82 -- -- 1.08* 0.86 0.65* -- -- -- PHOS -- -- -- -- -- -- -- -- -- -- -- -- -- -- -- -- 3.3 -- -- -- PROT -- -- -- -- -- -- -- -- -- -- -- -- -- -- -- -- -- -- -- 6.2 ALBUMIN -- -- -- -- -- -- -- -- -- -- -- -- -- -- -- -- -- -- -- 3.6 AST -- -- -- -- -- -- -- -- -- -- -- -- -- -- -- -- -- -- -- 15 ALT -- -- -- -- -- -- -- -- -- -- -- -- -- -- -- -- -- -- -- 13 ALKPHOS -- -- -- -- -- -- -- -- -- -- -- -- -- -- -- -- -- -- -- 70 BILITOT -- -- -- -- -- -- -- -- -- -- -- -- -- -- -- -- -- -- -- 0.2 ESTGFR -- -- -- >60 -- -- -- -- -- -- >60 >60 >60 -- -- -- >60 >60 -- >60 LACTATEVEN 1.7 2.5* 3.0* -- 2.9* -- 2.8* 2.0 2.3* < > -- -- -- < > -- -- -- -- < > -- < > = values in this interval not displayed. CBC Recent Labs 07/18/1707/17/17 0030 07/16/17 0400 07/15/17 0415 07/14/17 0036 WBC 10.7* 9.5 10.2* 14.6* 14.6* RBC 4.39* 3.98* 3.95* 4.16* 4.57* HGB 13.6* 12.4* 12.4* 13.0* 14.1 HCT 38.8* 36.7* 37.2* 38.9* 42.1 MCV 88.4 92.2 94.2* 93.5* 92.1 MCH 31.0 31.2 31.4 31.3 30.9 MCHC 35.1 33.8 33.3 33.4 33.5 MPV 10.9 10.9 10.3 10.0 10.2 ASSESSMENT, MANAGEMENT, and DECISION MAKING: Neuro: ICU delirium - tylenol - propofol gtt off - Start Haldol 5mg IV Q6H after checking QTc interval on EKG ?? CV: PMH Afib. Currently in sinus rhythm. Hypertensive to the 180s - PRN Hydralazine for SBP >160 ?? Pulm: Currently on Hi-Flow 50% - Wean Hi-flow, tolerate sats>96% ?? GI: DHT sutured in place - TF via DHT - miralax, dulcolax suppository for bowel regimen - Stress ulcer prophylaxis: PPI Renal/FE: - HLIV Endo: Dexamethsone re-ordered for airway edema x3 doses. Now with hyperglycemia (180s - 240s) - Start ISS for better glycemic control ?? Hematology: - DVT prophylaxis: SCDs and lovenox ?? ID: No acute issues ? Lines/Tubes/Drains: - DHT (right nare) - R arterial line 07/13 - L PIV - iqbal 07/13 ?? Code Status: Full Code ?? Disposition: ICU IS PATIENT CRITICALLY ILL ? Is there a high potential of sudden, clinically significant, or life threatening deterioration? Yes Is there a need for direct personal assessment and management to treat/prevent multiple vital organfailure/deterioration? Yes PATIENT IS CRITICALLY ILL WITH THESE DIAGNOSES BEING MANAGED BY CCS TEAM: Acute respiratory failure Difficult airway Delirium I personally performed 45 minutes of aggregate critical care time exclusive of procedures and teaching. This includes time spent during direct patient evaluation and reassessment, interpreting diagnostic tests, directing life and/or organ supporting interventions and documentation on the unit. Salazar Bhagat MD 07/18/2017 1:41 PM * Efrem Dale Jr., MD - 07/18/2017 9:41 AM EDT OTOLARYNGOLOGY - HEAD & NECK SURGERY DAILY PROGRESS NOTE Name: Jose Laws Age/Sex: 66 y.o. male Attending: Sriram Contreras MD Hospital Day: 6 2 Days Post-Op Patient ID/Reason for Admission Jose Laws is a 66 y.o. 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 Interval History -Extubated yesterday, now on high-flow NC -Continues to be delerious Vitals Last value 24hr Range Temperature: 37.2 ??C (99 ??F) Temp: [36 ??C (96.8 ??F)-37.6 ??C (99.7 ??F)] Heart Rate: 68 Heart Rate: [45-79] Blood Pressure: 136/58 BP: -- Respiratory Rate: 16 Resp: [10-21] SpO2: 96 % SpO2: [93 %-98 %] Intake & Output Intake/Output Summary (Last 24 hours) at 07/18/17 0941 Last data filed at 07/18/17 0800 Gross per 24 hour Intake 1293 ml Output 7235 ml Net -5942 ml Physical Exam General: NAD, non-ill appearing Face: Symmetric without dysmorphic features Eyes: EOMI, conjunctiva healthy Ears: Auricles symmetric, no lesions Nose: Grossly normal appearance; Dopoff tube in place, Cook catheter in L nares Oral Cavity/Pharynx: Mucosa is pink, oropharynx symmetric. Tongue is compressible. Some bruising onthe R lateral tongue. Neck: Soft, trachea midline; with neck incision c/d/i with crystal with no hematoma/seroma with some fullness superior to incision. 2 JYOTHI neck drains with serosanguinous output Chest: breath sounds equal BL, RRR Neuro: Slightly delirious, not agitated Labs Recent Labs 07/18/17 0220 07/17/17 2210 07/17/17 0030 07/16/17 0400 WBC 10.7* -- 9.5 10.2* HGB 13.6* -- 12.4* 12.4* HCT 38.8* -- 36.7* 37.2* PLATELET 147 -- 133* 126* NA 145 -- 137 144 K 3.7 -- 4.7 4.2 CL 105 -- 103 106 CO2 25 -- 21* 21* BUN 22* -- 17 16 CREATININE 0.74* -- 0.73* 0.82 GLUCOSE 181 -- 246* 131 CALCIUM 8.8 -- 8.3* 8.1* MAGNESIUM -- 0.87 -- 0.82 Imaging EXAMINATION: XR CHEST PA OR AP 1 VIEW ?? CLINICAL HISTORY: check ETT and DHT placement ?? TECHNIQUE: Portable 45 degree AP ?? COMPARISON: None ?? FINDINGS: Tip of endotracheal tube is 6 cm above the shelli, mid trachea, and projects over T3 vertebra. Dobbhoff tube tip is in the gastric body. No kinking. Hypoinflated lungs, platelike atelectasis right lung base. No dense airspace consolidation. ?? IMPRESSION ET tube in mid trachea. Dobbhoff tube tip in the gastric body with no Redundancy. EXAMINATION: CT NECK SOFT TISSUE W CONTRAST (GENERIC) ?? CLINICAL HISTORY: Intraoperative CT for navigation ?? TECHNIQUE: CT acquired of the upper neck for intraoperative navigation after administration of intravenous contrast. ?? COMPARISON: Neck CT 03/18/[address] 2016. ?? FINDINGS: The right base of tongue mass now appears across midline and there is increased extent along the right lateral pharyngeal wall. Increased thickening and abnormal enhancement of the epiglottis. Artifact makes evaluation of the aryepiglottic folds limited. No lymphadenopathy within the partially imaged neck. ?? IMPRESSION CT for intraoperative guidance. Increased extent of neoplasm as described above. ?? ASSESSMENT & PLAN Jose Laws is a 66 y.o. 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 POD5. Now extuabated Surgical/Head&Neck: Neck incision with aquaphor; 2 JYOTHI drains Neurologic: Pain controlled with acetaminophen SHIRA, oxycodone PRN. Delirium continues. Recommend moving to patient to room with window and keeping lights on during the daytime, frequent reorientation Cardiovascular: Metoprolol SHIRA for BP Pulmonary: Extubated and maintaining sats well on high-flow NC. Gastrointestinal: Miralax SHIRA, Bisacodyl suppository PRN for constipation; zofran PRN for nausea Genitourinary: No issues Musculoskeletal: Bedrest Nutrition: NPO diet (Give Meds) ; Nutrition consult for tube feeds - will modify when off propofol as per recs, Ok for ICU team to change this order as needed Infectious Disease: Unasyn d/clay; Peridex Hematology: WBC 10.7. Elevated lactate for past 24hrs, continue to trend Endocrine: No issues Prophylaxis: Lovenox, SCD; PPI Disposition: ICU Status, Full Code - Will consider transferring to NSCU tomorrow. Discharge: Plan for d/c TBD; Needs TBD; Follow-up ENT with Dr. Contreras TBD __ Efrem Dale Jr, MD, PGY2 07/18/17 9:41 AM Associated attestation - Lakeshia Mckeon MD - 07/22/2017 8:18 AM EDT Agree with above. Patient seen and examined by myself along with Dr. Dale and I agree with the assessment and plan. Lakeshia Mckeon MD * Jeannie Jewell, [facility] - 07/17/2017 7:24 PM EDT 07/17/171922 Oxygen Therapy Patient Type Adult O2 Device High flow nasal cannula O2 Flow Rate (L/min) 40 L/min FiO2 (%) 60 % SpO2 97 % Resp 20 Airway Temp 34.1 ??C (93.4 ??F) Humid. H2O Level (mL) (good) Breath Sounds Breath Sounds Bilateral Clear;Diminished 1999 AB.48,36,67,26; no changes made 2335 AB.51, 32, 60, 25; increased FIO2 to 70% 021 AB.50, 34, 95, 26; decreased FIO2 to 60%, will continue to monitor and support. * Efrem Dale Jr., MD - 07/17/2017 11:11 AM EDT OTOLARYNGOLOGY - HEAD & NECK SURGERY DAILY PROGRESS NOTE Name: Jose Laws Age/Sex: 66 y.o. male Attending: Sriram Contreras MD Hospital Day: 5 1 Day Post-Op Patient ID/Reason for Admission Jose Laws is a 66 y.o. 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 Interval History -Passed SBT, has cuff leak -Plan to extubate today AM in the ICU over a cook catheter Vitals Last value 24hr Range Temperature: 37 ??C (98.6 ??F) Temp: [36.6 ??C (97.9 ??F)-37.6 ??C (99.7 ??F)] Heart Rate: 62 Heart Rate: [47-79] Blood Pressure: 136/58 BP: -- Respiratory Rate: 20 Resp: [9-21] SpO2: 97 % SpO2: [93 %-98 %] Intake & Output Intake/Output Summary (Last 24 hours) at 07/17/172020 Last data filed at 07/17/17 1800 Gross per 24 hour Intake 2464.5 ml Output 5245 ml Net -2780.5 ml Physical Exam General: NAD, non-ill appearing Face: Symmetric without dysmorphic features Eyes: EOMI, conjunctiva healthy Ears: Auricles symmetric, no lesions Nose: Grossly normal appearance; Dopoff tube in place, Cook catheter in L nares Oral Cavity/Pharynx: Mucosa is pink, oropharynx symmetric. Tongue is compressible. Some bruising onthe R lateral tongue. Neck: Soft, trachea midline; with neck incision c/d/i with crystal with no hematoma/seroma with some fullness superior to incision. 2 JYOTHI neck drains with serosanguinous output Chest: breath sounds equal BL, RRR Neuro: Slightly delirious, not agitated Labs Recent Labs 07/17/17 0030 07/16/17 0400 WBC 9.5 10.2* HGB 12.4* 12.4* HCT 36.7* 37.2* PLATELET 133* 126* NA 137 144 K 4.7 4.2 CL 103 106 CO2 21* 21* BUN 17 16 CREATININE 0.73* 0.82 GLUCOSE 246* 131 CALCIUM 8.3* 8.1* MAGNESIUM -- 0.82 Imaging EXAMINATION: XR CHEST PA OR AP 1 VIEW ?? CLINICAL HISTORY: check ETT and DHT placement ?? TECHNIQUE: Portable 45 degree AP ?? COMPARISON: None ?? FINDINGS: Tip of endotracheal tube is 6 cm above the shelli, mid trachea, and projects over T3 vertebra. Dobbhoff tube tip is in the gastric body. No kinking. Hypoinflated lungs, platelike atelectasis right lung base. No dense airspace consolidation. ?? IMPRESSION ET tube in mid trachea. Dobbhoff tube tip in the gastric body with no Redundancy. EXAMINATION: CT NECK SOFT TISSUE W CONTRAST (GENERIC) ?? CLINICAL HISTORY: Intraoperative CT for navigation ?? TECHNIQUE: CT acquired of the upper neck for intraoperative navigation after administration of intravenous contrast. ?? COMPARISON: Neck CT 03/18/[address] 2016. ?? FINDINGS: The right base of tongue mass now appears across midline and there is increased extent along the right lateral pharyngeal wall. Increased thickening and abnormal enhancement of the epiglottis. Artifact makes evaluation of the aryepiglottic folds limited. No lymphadenopathy within the partially imaged neck. ?? IMPRESSION CT for intraoperative guidance. Increased extent of neoplasm as described above. ?? ASSESSMENT & PLAN Jose Laws is a 66 y.o. 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 POD4. Now extuabated Surgical/Head&Neck: Neck incision with aquaphor; 2 JYOTHI drains Neurologic: Pain controlled with acetaminophen SHIRA, oxycodone PRN Cardiovascular: Metoprolol SHIRA for BP Pulmonary: Extubated this AM. Still with excessive secretions Gastrointestinal: Miralax SHIRA, Bisacodyl suppository PRN for constipation; zofran PRN for nausea Genitourinary: No issues Musculoskeletal: Bedrest Fluids/Electrolytes: IVF D5 1/2 NaCl 20K @100/hr Nutrition: NPO diet (Give Meds) ; Nutrition consult for tube feeds - will modify if off propofol asper recs Infectious Disease: Unasyn d/clay; Peridex Hematology: WBC 9.5 Endocrine: No issues Prophylaxis: Lovenox, SCD; PPI Disposition: ICU Status, Full Code - If extubation continues to go well, consider transferring to NSCU late PM or tomorrow. Discharge: Plan for d/c TBD; Needs TBD; Follow-up ENT with Dr. Contreras TBD __ Efrem Dale Jr, MD, PGY2 07/17/17 8:21 PM Pager: [phone] (For daytime 6AM - 6PM) Please contact on-call night ENT media relations intern for issues between 6PM - 6AM * Miguelina Puente RT - 07/17/2017 10:56 AM EDT Pt received on PSV 5/5 40%. Pt had a good cuff leak. Pt extubated by ENT with RT present. Cook catheter used to extubate and left in place, catheter taped and secure. Catheter removed at 18:10. Pt has good productive cough. Placed on cool aerosol. Pt had increased WOB and placed on HFNC 40 LPM 60% FiO2 and tolerating well. Continue to follow. * Salazar Bhagat MD - 07/17/2017 10:00 AM EDT Critical Care Attending Red 1 PROGRESS NOTE Author: Salazar Bhagat MD Patient seen and examined on critical care rounds. Problem List: Arthritis Atrial fibrillation BPH Hypothyroidism Pulmonary embolism Supraglottic airway edema Tongue squamous cell cancer 24 Hour Events: POD 3 S/P radical neck dissection with pharyngectomy and partial glossectomy for base of tongue cancer. Propofol started overnight as precedex caused subsequent bradycardia to the 20s. TF held at midnight in anticipation of extubation. Physical Exam Last value Range last 24 hrs Temperature Temp: 36.6 ??C (97.9 ??F) Temp: [36.6 ??C (97.9 ??F)-37.9 ??C (100.2 ??F)] Heart Rate Heart Rate: 57 Heart Rate: [47-72] Blood Pressure BP: 136/58 BP: -- Respiratory Rate Resp: 17 Resp: [9-22] SpO2 SpO2: 98 % SpO2: [91 %-98 %] General: NAD, intubated, sedated HEENT: L nare with 7.[address], 6cm above shelli. R nare with DHT bridled in place. 2 JPs in [place] with serosanguinous output. Incision appears c/d/i Lungs: CTAB, suctioning moderate thick secretions Cardiac: RRR Abdomen: soft, non-distended Extremities: warm, well perfused Neuro: opens eyes to command Labs: CMP Recent Labs 07/17/17 0030 07/16/17 0400 07/15/17 1020 07/15/17 0417 07/14/17 2020 07/14/17 1630 07/14/17 0036 07/13/17 2133 07/13/17 1546 07/13/17 1406 07/13/17 1256 07/13/17 1215 07/13/17 1035 NA 137 144 143 -- -- -- 144 Not Perf -- -- 142 -- -- K 4.7 4.2 4.0 -- 4.4 -- 4.5 Not Perf -- -- 5.7* -- -- CL 103 106 107 -- -- -- 108* Not Perf -- -- 108* -- -- BUN 17 16 19 -- -- -- 16 17 -- -- 17 -- -- CREATININE 0.73* 0.82 0.96 -- -- -- 0.97 1.16 -- -- 1.06 -- -- CO2 21* 21* 22 -- -- -- 19* 18* -- -- 20* -- -- GLUCOSE 246* 131 111 -- -- -- 161 147 -- -- 155 -- -- ANIONGAP 13 17* 14 -- -- -- 17* Not Calculated -- -- 14 -- -- CALCIUM 8.3* 8.1* 8.2* -- -- -- 7.7* 7.3* -- -- 7.9* -- -- MAGNESIUM -- 0.82 -- -- 1.08* 0.86 0.65* -- -- -- -- -- -- PHOS -- -- -- -- -- -- 3.3 -- -- -- -- -- -- PROT -- -- -- -- -- -- -- -- -- -- 6.2 -- -- ALBUMIN -- -- -- -- -- -- -- -- -- -- 3.6 -- -- AST -- -- -- -- -- -- -- -- -- -- 15 -- -- ALT -- -- -- -- -- -- -- -- -- -- 13 -- -- ALKPHOS -- -- -- -- -- -- -- -- -- -- 70 -- -- BILITOT -- -- -- -- -- -- -- -- -- -- 0.2 -- -- ESTGFR >60 >60 >60 -- -- -- >60 >60 -- -- >60 -- -- LACTATEVEN -- -- -- 1.9 -- -- -- -- 2.9* 2.5* -- 3.7* 2.1 CBC Recent Labs 07/17/17 0030 07/16/17 0400 07/15/17 0415 07/14/17 0036 WBC 9.5 10.2* 14.6* 14.6* RBC 3.98* 3.95* 4.16* 4.57* HGB 12.4* 12.4* 13.0* 14.1 HCT 36.7* 37.2* 38.9* 42.1 MCV 92.2 94.2* 93.5* 92.1 MCH 31.2 31.4 31.3 30.9 MCHC 33.8 33.3 33.4 33.5 MPV 10.9 10.3 10.0 10.2 ASSESSMENT, MANAGEMENT, and DECISION MAKING: Neuro: Sedated for airway protection, weaning to extubate this am - tylenol - propofol gtt off - wean fentanyl gtt off ?? CV: PMH Afib. Currently in sinus bradycardia - currently stable ?? Pulm: nasally intubated, difficult airway. SBT performed and patient did well with adequate respiratory mechanics, and a cuff leak. Planned extubation this morning with ENT, should the need arise fora surgical airway. - [facility] vent protocol - HOB 30 degrees ?? GI: DHT sutured in place - TF via DHT, held for extubation - miralax, dulcolax suppository for bowel regimen - Stress ulcer prophylaxis: PPI Renal/FE: - HLIV ?? Hematology: - DVT prophylaxis: SCDs and lovenox ?? ID: No acute issues ? Lines/Tubes/Drains: - 7.5 nasal ETT (left nare) - DHT (right nare) - R arterial line 07/13 - L PIV - iqbal 07/13 ?? Code Status: Full Code ?? Disposition: ICU IS PATIENT CRITICALLY ILL ? Is there a high potential of sudden, clinically significant, or life threatening deterioration? Yes Is there a need for direct personal assessment and management to treat/prevent multiple vital organfailure/deterioration? Yes PATIENT IS CRITICALLY ILL WITH THESE DIAGNOSES BEING MANAGED BY CCS TEAM: Acute respiratory failure Difficult airway I personally performed 35 minutes of aggregate critical care time exclusive of procedures and teaching. This includes time spent during direct patient evaluation and reassessment, interpreting diagnostic tests, directing life and/or organ supporting interventions and documentation on the unit. Salazar Bhagat MD 07/17/2017 10:01 AM * Jeannie Jewell RCP - 07/16/2017 11:40 PM EDT AMV Protocol: Yes SBT Protocol: Yes SBT: Passed Vent Settings: Servo I Ventilator Mode: PS PEEP Set: 8 FiO2: 40 % PSV: 5 Ventilator Measurements: Resp: 11 Vt Spontaneous: 920 Ve: 10.3 SpO2: 94 % EtCO2: 11 mmHg Airway: 7.5 @ 28 cm at the Nare. Skin Integrity: WDL MDI Inhaled Medications: Albuterol Breath Sounds: clear and diminished Secretions: small/white-pink tinged/thick Assessment / Events / Plan of the Day: keep on minimal settings as tolerated and do an SBT in the am. 0303: weaned peep to 5 and vitals remain stable. Pt passed SBT this am without complication and is now on PSV 5/5 and 40%, vitals stable. Continue to monitor and support. * Miguelina Puente RT - 07/16/2017 5:12 PM EDT AMV Protocol: Yes SBT Protocol: Yes Vent Settings: Servo I Ventilator Mode: PS PEEP Set: 8 FiO2: 40 % PSV: 5 Ventilator Measurements: Resp: 14 Vt Spontaneous: 875 Ve: 11.4 SpO2: 96 % EtCO2: 13 mmHg Airway: 7.5 @ 28 cm at the Nare. Skin Integrity: WDL MDI Inhaled Medications: Albuterol PRN Breath Sounds: Coarse Secretions: Moderate amount of thick hdez Assessment / Events / Plan of the Day: Pt was received on above settings. Pt taken to OR today to extubate. Pt was not extubated due to supraglottic edema and returned to ICU. Will assess pt tomorrowfor extubation. Continue to monitor. * Namita Hoffmann, RD - 07/16/2017 4:26 PM EDT Nutrition Services Tube Feeding Note 66 y.o.??male??with PMH Afib, PE, KORI,??BPH and hypothyroid who is now s/p radical neck dissection with pharyngectomy and partial glossectomy for base of tongue cancer Estimated body mass index is 36.26 kg/(m^2) as calculated from the following: Height as of this encounter: 191.8 cm (6' 3.5). Weight as of this encounter: 133.4 kg (294 lb). Admit Weight: 133.36 kg [place] Body Weight: 90.3 kg I/O last 1 completed shift: In: 1872.3 [I.V.:1285.3; Other:290; NG/GT:297] Out: 1100 [Urine:1050; Other:50] TF order: Peptamen Intense VHP at 65 ml per hour to provide volume of 1300 ml plus 6 scoops Beneprotein powder per day. (This rate is calculated to compensate for unplanned time off feedings due to potential procedures, etc.). Enteral Access: DHT Tube feedings provide -> 1450 kcal, 156 gm protein, 1092 ml water from formula (plus ~ 300 ml additional free water to mix protein powder), 87% of RDI's for vitamins and minerals. Average TF intake: 449 ml formula and 4 scoops protein powder over the last 2 days Last BM: none since admission, 4 days pert meds: propofol, decadron, miralax, others noted Lab Results Component Value Date NA 144 07/16/2017 K 4.2 07/16/2017 CL 106 07/16/2017 CO2 21 (L) 07/16/2017 BUN 16 07/16/2017 CREATININE 0.82 07/16/2017 GLUCOSE 131 07/16/2017 MAGNESIUM 0.82 07/16/2017 CALCIUM 8.1 (L) 07/16/2017 PHOS 3.3 07/14/2017 AST 15 07/13/2017 ALT 13 07/13/2017 ALKPHOS 70 07/13/2017 BILITOT 0.2 07/13/2017 Skin/Wound: Incision right neck Nutrition needs previously assessed at: 2250 Calories (25 kcal/kg IBW) 160 gm Protein (1.5-2 gm/kg IBW) Propofol providing 634-1056 calories from lipid daily. Assessment/Recommendations: Average tube feeding intake over the last 2 days met 38% of calorie goal and 41% protein goal as feedings were held the past 2 days at midnight for extubation. Continues on high dose propofol. Unable to extubate today. TF restarted and at goal. Current order remains appropriate. If Propofol d/c: Suggest change tube feedings to Peptamen AF. Suggest Peptamen AF at goal rate of 73 ml per hour to provide volume of 1752 ml plus 5 scoops of Beneprotein powder per day. This will provide 2227 kcal, 162 gm protein, 1415 ml water from formula (plus ~ 250 ml additional free water to mix protein powder), 100% of RDI's for vitamins and minerals. Above order pended. Once pt transfers out to the floor and tolerating continuous feedings, can switch to bolus feedings. ?? For bolus feeds: Initiate slowly giving 100 ml over 45-60 minutes and increasing by 50 ml per feed as tolerated until able to reach goal. ?? Goal is 350 ml of Peptamen AF, 5 times per day plus 5 scoops beneprotein powder per day (suggest give 1 scoop 5 x day). This will provide 2225 kcal, 162 gm protein, 1413 ml water from formula (plus ~250 ml additional free water to mix protein powder), 100% of RDI's for vitamins and minerals. ?? Flush with 60 ml water before each feeding and 60 ml water after each feeding to maintain patency and for hydration. ?? Suggest check magnesium and phosphorus with daily labs. ?? Suggest monitor triglyceride level frequently while on Propofol. Monitor weight. Discussed with Dr. Martino on ENT service. Nutrition to follow. * Lillian Pardo, YUN - 07/16/2017 1:48 PM EDT Speech-Language Pathology Initial Consult ?? Order received and acknowledged. Records reviewed and pt and RN contacted. Pt remains intubated at this time. Assessment deferred at this time. Please re- consult after pt successfully extubated. ?? Lillian Pardo MA CCC-ASSOCIATE PROFESSOR OF GEOGRAPHY Inpatient Rehabilitation Medicine pager:# [phone] * Salazar Bhagat MD - 07/16/2017 11:57 AM EDT Critical Care Attending Red 1 PROGRESS NOTE Author: Salazar Bhagat MD Patient seen and examined on critical care rounds. Problem List: Arthritis Atrial fibrillation BPH Hypothyroidism Pulmonary embolism Tongue squamous cell cancer 24 Hour Events: POD 2 S/P radical neck dissection with pharyngectomy and partial glossectomy for base of tongue cancer. Precedex gtt started overnight with subsequent bradycardia to the 20s. Resolved with cessation of precedex gtt. TF held at midnight in anticipation of return to OR today with ENT. Physical Exam Last value Range last 24 hrs Temperature Temp: 37.5 ??C (99.5 ??F) Temp: [36.9 ??C (98.4 ??F)-37.6 ??C (99.7 ??F)] Heart Rate Heart Rate: 67 Heart Rate: [47-77] Blood Pressure BP: 136/58 BP: (136)/(58) Respiratory Rate Resp: 17 Resp: [8-21] SpO2 SpO2: 96 % SpO2: [90 %-99 %] General: NAD, intubated, sedated HEENT: L nare with 7.[address], 6cm above shelli. R nare with DHT bridled in place. 2 JPs in [place] with serosanguinous output. Incision appears c/d/i Lungs: CTAB Cardiac: sinus bradycardia Abdomen: soft, non-distended Extremities: warm, well perfused Neuro: continues to be sedated, minimally responsive on propofol Labs: CMP Recent Labs 07/16/17 0400 07/15/17 1020 07/15/17 0417 07/14/17 2020 07/14/17 1630 07/14/17 0036 07/13/17 2133 07/13/17 1546 07/13/17 1406 07/13/17 1256 07/13/17 1215 07/13/17 1035 NA 144 143 -- -- -- 144 Not Perf -- -- 142 -- -- K 4.2 4.0 -- 4.4 -- 4.5 Not Perf -- -- 5.7* -- -- CL 106 107 -- -- -- 108* Not Perf -- -- 108* -- -- BUN 16 19 -- -- -- 16 17 -- -- 17 -- -- CREATININE 0.82 0.96 -- -- -- 0.97 1.16 -- -- 1.06 -- -- CO2 21* 22 -- -- -- 19* 18* -- -- 20* -- -- GLUCOSE 131 111 -- -- -- 161 147 -- -- 155 -- -- ANIONGAP 17* 14 -- -- -- 17* Not Calculated -- -- 14 -- -- CALCIUM 8.1* 8.2* -- -- -- 7.7* 7.3* -- -- 7.9* -- -- MAGNESIUM 0.82 -- -- 1.08* 0.86 0.65* -- -- -- -- -- -- PHOS -- -- -- -- -- 3.3 -- -- -- -- -- -- PROT -- -- -- -- -- -- -- -- -- 6.2 -- -- ALBUMIN -- -- -- -- -- -- -- -- -- 3.6 -- -- AST -- -- -- -- -- -- -- -- -- 15 -- -- ALT -- -- -- -- -- -- -- -- -- 13 -- -- ALKPHOS -- -- -- -- -- -- -- -- -- 70 -- -- BILITOT -- -- -- -- -- -- -- -- -- 0.2 -- -- ESTGFR >60 >60 -- -- -- >60 >60 -- -- >60 -- -- LACTATEVEN -- -- 1.9 -- -- -- -- 2.9* 2.5* -- 3.7* 2.1 CBC Recent Labs 07/16/17 0400 07/15/17 0415 07/14/17 0036 WBC 10.2* 14.6* 14.6* RBC 3.95* 4.16* 4.57* HGB 12.4* 13.0* 14.1 HCT 37.2* 38.9* 42.1 MCV 94.2* 93.5* 92.1 MCH 31.4 31.3 30.9 MCHC 33.3 33.4 33.5 MPV 10.3 10.0 10.2 ASSESSMENT, MANAGEMENT, and DECISION MAKING: Neuro: Sedated for airway protection - tylenol, fentanyl gtt for pain control - propofol gtt for continued sedation ?? CV: PMH Afib. Currently in sinus bradycardia - currently stable ?? Pulm: nasally intubated, difficult airway. SBT performed and patient did well with adequate respiratory mechanics, but did not have a cuff leak. Planned extubation in the OR this morning with ENT, should the need arise for a surgical airway. - [facility] vent protocol - HOB 30 degrees ?? GI: DHT sutured in place - TF via DHT, held for OR today - miralax, dulcolax suppository for bowel regimen - Stress ulcer prophylaxis: PPI Renal/FE: - D5 1/2NS @ 100ml/hr ?? Hematology: - DVT prophylaxis: SCDs and lovenox ?? ID: No acute issues ? Lines/Tubes/Drains: - 7.5 nasal ETT (left nare) - DHT (right nare) - R arterial line 07/13 - L PIV - iqbal 07/13 ?? Code Status: Full Code ?? Disposition: ICU IS PATIENT CRITICALLY ILL ? Is there a high potential of sudden, clinically significant, or life threatening deterioration? Yes Is there a need for direct personal assessment and management to treat/prevent multiple vital organfailure/deterioration? Yes PATIENT IS CRITICALLY ILL WITH THESE DIAGNOSES BEING MANAGED BY CCS TEAM: Acute respiratory failure Difficult airway I personally performed 35 minutes of aggregate critical care time exclusive of procedures and teaching. This includes time spent during direct patient evaluation and reassessment, interpreting diagnostic tests, directing life and/or organ supporting interventions and documentation on the unit. Salazar Bhagat MD 07/16/2017 11:57 AM * Abigail Martino MD - 07/16/2017 9:09 AM EDT OTOLARYNGOLOGY - HEAD & NECK SURGERY DAILY PROGRESS NOTE Name: Jose Laws Age/Sex: 66 y.o. male Attending: Sriram Contreras MD Hospital Day: 4 3 Days Post-Op Patient ID/Reason for Admission Jose Laws is a 66 y.o. 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 Interval History Ventilated on PEEP 5, PSV 5, FiO2 25%. Passed SBT and no cuff leak yesterday, ICU concerned to extubate on the unit, Plan to extubate today AM in the OR. Vitals Last value 24hr Range Temperature: 37 ??C (98.6 ??F) Temp: [36.6 ??C (97.9 ??F)-37.6 ??C (99.7 ??F)] Heart Rate: (!) 47 Heart Rate: [47-77] Blood Pressure: 136/58 BP: (136)/(58) Respiratory Rate: 10 Resp: [8-21] SpO2: 99 % SpO2: [90 %-99 %] Intake & Output Intake/Output Summary (Last 24 hours) at 07/16/17 0912 Last data filed at 07/16/17 0800 Gross per 24 hour Intake 3582.3 ml Output 2062 ml Net 1520.3 ml Physical Exam General: NAD, non-ill appearing Face: Symmetric without dysmorphic features Eyes: EOMI, conjunctiva healthy Ears: Auricles symmetric, no lesions Nose: Grossly normal appearance; Dopoff tube in place, ETT secure nasally. Oral Cavity/Pharynx: Mucosa is pink, oropharynx symmetric. Tongue is compressible. Some bruising onthe R lateral tongue. Neck: Soft, trachea midline; with neck incision c/d/i with crysatl with no hematoma/seroma with some fullness superior to incision. 2 JYOTHI neck drains with serosanguinous output Chest: Ventilator breath sounds, RR Neuro: Ventilated and sedated Labs Recent Labs 07/16/17 0400 07/15/17 1020 07/15/17 0415 07/14/17 2020 07/14/17 1630 07/14/17 0036 WBC 10.2* -- 14.6* -- -- 14.6* HGB 12.4* -- 13.0* -- -- 14.1 HCT 37.2* -- 38.9* -- -- 42.1 PLATELET 126* -- 135* -- -- 157 NA 144 143 -- -- -- 144 K 4.2 4.0 -- 4.4 -- 4.5 CL 106 107 -- -- -- 108* CO2 21* 22 -- -- -- 19* BUN 16 19 -- -- -- 16 CREATININE 0.82 0.96 -- -- -- 0.97 GLUCOSE 131 111 -- -- -- 161 CALCIUM 8.1* 8.2* -- -- -- 7.7* MAGNESIUM -- -- -- 1.08* 0.86 0.65* PHOS -- -- -- -- -- 3.3 Imaging EXAMINATION: XR CHEST PA OR AP 1 VIEW ?? CLINICAL HISTORY: check ETT and DHT placement ?? TECHNIQUE: Portable 45 degree AP ?? COMPARISON: None ?? FINDINGS: Tip of endotracheal tube is 6 cm above the shelli, mid trachea, and projects over T3 vertebra. Dobbhoff tube tip is in the gastric body. No kinking. Hypoinflated lungs, platelike atelectasis right lung base. No dense airspace consolidation. ?? IMPRESSION ET tube in mid trachea. Dobbhoff tube tip in the gastric body with no Redundancy. EXAMINATION: CT NECK SOFT TISSUE W CONTRAST (GENERIC) ?? CLINICAL HISTORY: Intraoperative CT for navigation ?? TECHNIQUE: CT acquired of the upper neck for intraoperative navigation after administration of intravenous contrast. ?? COMPARISON: Neck CT 03/18/[address] 2016. ?? FINDINGS: The right base of tongue mass now appears across midline and there is increased extent along the right lateral pharyngeal wall. Increased thickening and abnormal enhancement of the epiglottis. Artifact makes evaluation of the aryepiglottic folds limited. No lymphadenopathy within the partially imaged neck. ?? IMPRESSION CT for intraoperative guidance. Increased extent of neoplasm as described above. ?? ASSESSMENT & PLAN Jose Laws is a 66 y.o. 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 3 Days Post-Op. Surgical/Head&Neck: Neck incision with aquaphor; 2 JYOTHI drains Neurologic: Pain controlled with acetaminophen SHIRA, oxycodone PRN; Will do neuro exam when patient awake. Fentanyl and Propofol on board for sedation Cardiovascular: Metoprolol SHIRA for BP Pulmonary: Intubated - Plan for extubation today in the OR. Albuterol PRN for wheezing Gastrointestinal: Miralax SHIRA, Bisacodyl suppository PRN for constipation; zofran PRN for nausea Genitourinary: No issues Musculoskeletal: Bedrest Fluids/Electrolytes: IVF D5 1/2 NaCl 20K @100/hr Nutrition: NPO diet (Give Meds) ; Nutrition consult for tube feeds - will modify if off propofol asper recs Infectious Disease: Unasyn d/clay; Peridex Hematology: WBC 10.2 Endocrine: No issues Prophylaxis: Lovenox, SCD; PPI Disposition: ICU Status, Full Code - If extubation goes well, consider transferring to NSCU late PMor tomorrow. Discharge: Plan for d/c TBD; Needs TBD; Follow-up ENT with Dr. Contreras TBD __ Abigail Martino MD, PGY1 07/16/17 9:12 AM Pager: [phone] (For daytime 6AM - 6PM) Please contact on-call night ENT media relations intern for issues between 6PM - 6AM * Supa Sharif, [facility] - 07/15/2017 8:15 PM EDT AMV Protocol: Yes SBT Protocol: Yes SBT: Not done; PT unstable - Bradycardia > 30 bpm. Vent Settings: Servo I Ventilator Mode: PS PEEP Set: 5 FiO2: 25 % PSV: 5 Ventilator Measurements: Resp: 10 Vt Spontaneous: 840 Ve: 8.5 SpO2: 93 % EtCO2: 56 mmHg Airway: 7.5 @ 28cm at the Nare. Skin Integrity: WDL Breath Sounds: Diminished / Crackles Secretions: A small amount of Hdez / White, Thick / Thin secretions were sxn'ed at the start of the shift. Assessment / Events / Plan of the Day: PT is a 66 y/o male s/p neck and oral surgery who is nasally intubated. The current plan is to again remain well sedated overnight and work towards extubation in the morning. PT is on both the AMV and SBT protocols. No SBT done - PT had an episode of bradycardia just before the SBT would have been done to a HR of < 30 bpm. Decision made with team consult. * Marbin Gutiérrez RCP - 07/15/2017 5:30 PM EDT AMV Protocol: Yes SBT Protocol: Yes Vent Settings: Servo I Ventilator Mode: PS PEEP Set: 5 FiO2: 25 % PSV: 5 Ventilator Measurements: Resp: 11 Vt Spontaneous: 829 Ve: 8.9 SpO2: 93 % EtCO2: 54 mmHg MDI Inhaled Medications: Albuterol Breath Sounds: diminished Secretions: small amount brown/blood tinged Assessment / Events / Plan of the Day: Jose in PS as above this morning. He passed an overnight SBT per protocol easily. Tube feeds held since midnight. He has a 7.5 nasal ETT placed at 28 in the left nare. It is secured with cloth tape, Tegaderm and sutures. No redness or breakdown at insertion site. No cuff leak when checked. He is well sedated and tolerating therapy and intubation. Our plan is to continue support as needed, extubate him in the OR when scheduled. No OR trip made today. We will continue support, maintain ETT in neutral position with arms and padding to mitigate nasal breakdown. Perform SBT overnight. * Salazar Bhagat MD - 07/15/2017 4:57 PM EDT Critical Care Attending PROGRESS NOTE Author: Salazar Bhagat MD Patient seen and examined on critical care rounds. Problem List: Arthritis Atrial fibrillation BPH Hypothyroidism Pulmonary embolism Tongue squamous cell cancer 24 Hour Events: POD 1 S/P radical neck dissection with pharyngectomy and partial glossectomy for base of tongue cancer. Fentanyl gtt increased to 100 mcg/hr overnight for agitation, decreased to 50 mcg/hr this morning. Metoprolol held 2/2 bradycardia in the 50s. ?? Physical Exam Last value Range last 24 hrs Temperature Temp: 37.3 ??C (99.1 ??F) Temp: [36.1 ??C (97 ??F)-37.3 ??C (99.1 ??F)] Heart Rate Heart Rate: 64 Heart Rate: [52-72] Blood Pressure BP: 104/55 BP: -- Respiratory Rate Resp: 8 Resp: [8-21] SpO2 SpO2: 91 % SpO2: [90 %-96 %] General: NAD, intubated, sedated HEENT: L nare with 7.[address], 6cm above shelli. R nare with DHT bridled in place. 2 JPs in [place] with serosanguinous output. Incision appears c/d/i Lungs: CTAB Cardiac: sinus bradycardia Abdomen: soft, non-distended Extremities: warm, well perfused Neuro: continues to be sedated, minimally responsive on propofol Labs: CMP Recent Labs 07/15/17 1020 07/15/17 0417 07/14/17 2020 07/14/17 1630 07/14/17 0036 07/13/17 2133 07/13/17 1546 07/13/17 1406 07/13/17 1256 07/13/17 1215 07/13/17 1035 NA 143 -- -- -- 144 Not Perf -- -- 142 -- -- K 4.0 -- 4.4 -- 4.5 Not Perf -- -- 5.7* -- -- CL 107 -- -- -- 108* Not Perf -- -- 108* -- -- BUN 19 -- -- -- 16 17 -- -- 17 -- -- CREATININE 0.96 -- -- -- 0.97 1.16 -- -- 1.06 -- -- CO2 22 -- -- -- 19* 18* -- -- 20* -- -- GLUCOSE 111 -- -- -- 161 147 -- -- 155 -- -- ANIONGAP 14 -- -- -- 17* Not Calculated -- -- 14 -- -- CALCIUM 8.2* -- -- -- 7.7* 7.3* -- -- 7.9* -- -- MAGNESIUM -- -- 1.08* 0.86 0.65* -- -- -- -- -- -- PHOS -- -- -- -- 3.3 -- -- -- -- -- -- PROT -- -- -- -- -- -- -- -- 6.2 -- -- ALBUMIN -- -- -- -- -- -- -- -- 3.6 -- -- AST -- -- -- -- -- -- -- -- 15 -- -- ALT -- -- -- -- -- -- -- -- 13 -- -- ALKPHOS -- -- -- -- -- -- -- -- 70 -- -- BILITOT -- -- -- -- -- -- -- -- 0.2 -- -- ESTGFR >60 -- -- -- >60 >60 -- -- >60 -- -- LACTATEVEN -- 1.9 -- -- -- -- 2.9* 2.5* -- 3.7* 2.1 CBC Recent Labs 07/15/17 0415 07/14/17 0036 WBC 14.6* 14.6* RBC 4.16* 4.57* HGB 13.0* 14.1 HCT 38.9* 42.1 MCV 93.5* 92.1 MCH 31.3 30.9 MCHC 33.4 33.5 MPV 10.0 10.2 ASSESSMENT, MANAGEMENT, and DECISION MAKING: Neuro: Sedated for airway protection - tylenol, fentanyl gtt for pain control - propofol gtt for continued sedation ?? CV: PMH Afib. Currently in sinus bradycardia - currently stable ?? Pulm: nasally intubated, difficult airway. SBT performed and patient did well with adequate respiratory mechanics, but did not have a cuff leak. Given the degree of difficulty, will plan for extubation in the OR, should the need arise for a surgical airway. - [facility] vent protocol - Dexamethasone x3 doses - keep sedated today, for extubation in the OR tomorrow with ENT - HOB 30 degrees ?? GI: DHT sutured in place - TF via DHT - miralax, dulcolax suppository for bowel regimen - Stress ulcer prophylaxis: PPI Renal/FE: - HLIV ?? Hematology: - DVT prophylaxis: SCDs and lovenox ?? ID: - danyel-op abx unasyn q6 x3 doses ? Lines/Tubes/Drains: - 7.5 nasal ETT (left nare) - DHT (right nare) - R arterial line 07/13 - L PIV - iqbal 07/13 ?? Code Status: Full Code ?? Disposition: ICU IS PATIENT CRITICALLY ILL ? Is there a high potential of sudden, clinically significant, or life threatening deterioration? Yes Is there a need for direct personal assessment and management to treat/prevent multiple vital organfailure/deterioration? Yes PATIENT IS CRITICALLY ILL WITH THESE DIAGNOSES BEING MANAGED BY [facility] TEAM: Acute respiratory failure Difficult airway I personally performed 45 minutes of aggregate critical care time exclusive of procedures and teaching. This includes time spent during direct patient evaluation and reassessment, interpreting diagnostic tests, directing life and/or organ supporting interventions and documentation on the unit. Salazar Bhagat MD 07/15/2017 4:57 PM * Abigail Martino MD - 07/15/2017 7:06 AM EDT OTOLARYNGOLOGY - HEAD & NECK SURGERY DAILY PROGRESS NOTE Name: Jose Laws Age/Sex: 66 y.o. male Attending: Sriram Contreras MD Hospital Day: 3 2 Days Post-Op Patient ID/Reason for Admission Jose Laws is a 66 y.o. 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 Interval History Ventilated on PEEP 5, PSV 5, FiO2 21% Some sinus jya overnight. Tube feeds on board starting yesterday. Plan to extubate today. Vitals Last value 24hr Range Temperature: 36.7 ??C (98.1 ??F) Temp: [36.1 ??C (97 ??F)-36.8 ??C (98.2 ??F)] Heart Rate: 54 Heart Rate: [52-79] Blood Pressure: 104/55 BP: -- Respiratory Rate: 8 Resp: [8-21] SpO2: 93 % SpO2: [90 %-97 %] Intake & Output Intake/Output Summary (Last 24 hours) at 07/15/17 0706 Last data filed at 07/15/17 0600 Gross per 24 hour Intake 3782.3 ml Output 2505 ml Net 1277.3 ml Physical Exam General: NAD, non-ill appearing Face: Symmetric without dysmorphic features Eyes: EOMI, conjunctiva healthy Ears: Auricles symmetric, no lesions Nose: Patent nares, grossly normal appearance; Dopoff tube in place, ETT secure nasally. Oral Cavity/Pharynx: Mucosa is pink, oropharynx symmetric Neck: Soft, trachea midline; with neck incision c/d/i with crystal with no hematoma/seroma. 2 JYOTHI neck drains with serosanguinous output Chest: Ventilator breath sounds, RR Neuro: Ventilated and sedated Labs Recent Labs 07/15/17 0415 07/14/17201907/14/17 1630 07/14/17 0036 07/13/17 2133 WBC 14.6* -- -- 14.6* -- -- HGB 13.0* -- -- 14.1 -- -- HCT 38.9* -- -- 42.1 -- -- PLATELET 135* -- -- 157 -- -- NA -- -- -- 144 -- Not Perf K -- 4.4 -- 4.5 -- Not Perf CL -- -- -- 108* -- Not Perf CO2 -- -- -- 19* -- 18* BUN -- -- -- 16 -- 17 CREATININE -- -- -- 0.97 -- 1.16 GLUCOSE -- -- -- 161 -- 147 CALCIUM -- -- -- 7.7* -- 7.3* MAGNESIUM -- 1.08* 0.86 0.65* < > -- PHOS -- -- -- 3.3 -- -- < > = values in this interval not displayed. Imaging EXAMINATION: XR CHEST PA OR AP 1 VIEW ?? CLINICAL HISTORY: check ETT and DHT placement ?? TECHNIQUE: Portable 45 degree AP ?? COMPARISON: None ?? FINDINGS: Tip of endotracheal tube is 6 cm above the shelli, mid trachea, and projects over T3 vertebra. Dobbhoff tube tip is in the gastric body. No kinking. Hypoinflated lungs, platelike atelectasis right lung base. No dense airspace consolidation. ?? IMPRESSION ET tube in mid trachea. Dobbhoff tube tip in the gastric body with no Redundancy. EXAMINATION: CT NECK SOFT TISSUE W CONTRAST (GENERIC) ?? CLINICAL HISTORY: Intraoperative CT for navigation ?? TECHNIQUE: CT acquired of the upper neck for intraoperative navigation after administration of intravenous contrast. ?? COMPARISON: Neck CT 03/18/[address] 2016. ?? FINDINGS: The right base of tongue mass now appears across midline and there is increased extent along the right lateral pharyngeal wall. Increased thickening and abnormal enhancement of the epiglottis. Artifact makes evaluation of the aryepiglottic folds limited. No lymphadenopathy within the partially imaged neck. ?? IMPRESSION CT for intraoperative guidance. Increased extent of neoplasm as described above. ?? ASSESSMENT & PLAN Jose Laws is a 66 y.o. 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 2 Days Post-Op. Surgical/Head&Neck: Neck incision with aquaphor; 2 JYOTHI drains Neurologic: Pain controlled with acetaminophen SHIRA, oxycodone PRN; Will do neuro exam when patient awake. Fentanyl and Propofol on board for sedation Cardiovascular: Metoprolol SHIRA for BP Pulmonary: Intubated - Plan for extubation today. Albuterol PRN for wheezing Gastrointestinal: Miralax SHIRA, Bisacodyl suppository PRN for constipation; zofran PRN for nausea Genitourinary: No issues Musculoskeletal: Bedrest Fluids/Electrolytes: IVF D5 1/2 NaCl 20K @100/hr Nutrition: NPO diet (Give Meds) ; Nutrition consult for tube feeds - will modify if off propofol asper recs Infectious Disease: Unasyn 3g Q6 - continue now; Peridex Hematology: WBC 14.6 Endocrine: No issues Prophylaxis: Lovenox, SCD; PPI Disposition: ICU Status, Full Code - If extubation goes well, consider transferring to NSCU late PMor tomorrow. Discharge: Plan for d/c TBD; Needs TBD; Follow-up ENT with Dr. Contreras TBD __ Abigail Martino MD, PGY1 07/15/17 7:06 AM Pager: [phone] (For daytime 6AM - 6PM) Please contact on-call night ENT media relations intern for issues between 6PM - 6AM * Supa Sharif, [facility] - 07/14/2017 9:40 PM EDT AMV Protocol: Yes SBT Protocol: Yes SBT: Passed Vent Settings: Servo I Ventilator Mode: PS PEEP Set: 5 FiO2: 21 % PSV: 5 Ventilator Measurements: Resp: 9 Vt Spontaneous: 1090 Ve: 7.6 SpO2: 95 % EtCO2: 55 mmHg Airway: 7.5 @ 28cm at the Nare. Skin Integrity: WDL Breath Sounds: Diminished / Clear Secretions: None sxn'ed. Assessment / Events / Plan of the Day: PT is a 66 y/o male s/p neck and oral surgery who is nasally intubated. The current plan is to remain well sedated overnight and work towards extubation in the morning. PT is on both the AMV and SBT protocols. PT Passed the overnight SBT. * Salazar Bhagat MD - 07/14/2017 6:30 PM EDT Critical Care Attending PROGRESS NOTE Author: Salazar Bhagat MD Patient seen and examined on critical care rounds. Problem List: Arthritis Atrial fibrillation BPH Hypothyroidism Pulmonary embolism Tongue squamous cell cancer 24 Hour Events: POD 0 S/P radical neck dissection with pharyngectomy and partial glossectomy for base of tongue cancer. Hypoxic (min pO2 68 on FiO2 25%) during case with peak lactate 3.69 and hyperkalemia (peak 5.7)for which FiO2 was bumped to 100% with good response (pO2 96, lactate 2.4, K 3.7). Admitted to the ICU post-operatively (07/13/2017) nasally intubated and sedated. Sinus jay overnight with 1 degree AV block, some ventricular bigeminy. ?? Physical Exam Last value Range last 24 hrs Temperature Temp: 36.2 ??C (97.2 ??F) Temp: [36.2 ??C (97.2 ??F)-37.1 ??C (98.8 ??F)] Heart Rate Heart Rate: 52 Heart Rate: [52-79] Blood Pressure BP: 104/55 BP: (103-104)/(55-56) Respiratory Rate Resp: 9 Resp: [9-21] SpO2 SpO2: 92 % SpO2: [92 %-100 %] General: NAD, intubated, sedated HEENT: L nare with 7.[address], 6cm above shelli. R nare with DHT bridled in place. 2 JPs in [place] with serosanguinous output. Incision appears c/d/i Lungs: CTAB Cardiac: sinus bradycardia Abdomen: soft, non-distended Extremities: warm, well perfused Neuro: continues to be sedated, minimally responsive on propofol Labs: CMP Recent Labs 07/14/17 1630 07/14/17 0036 07/13/17 2133 07/13/17 1546 07/13/17 1406 07/13/17 1256 07/13/17 1215 07/13/17 1035 NA -- 144 Not Perf -- -- 142 -- -- K -- 4.5 Not Perf -- -- 5.7* -- -- CL -- 108* Not Perf -- -- 108* -- -- BUN -- 16 17 -- -- 17 -- -- CREATININE -- 0.97 1.16 -- -- 1.06 -- -- CO2 -- 19* 18* -- -- 20* -- -- GLUCOSE -- 161 147 -- -- 155 -- -- ANIONGAP -- 17* Not Calculated -- -- 14 -- -- CALCIUM -- 7.7* 7.3* -- -- 7.9* -- -- MAGNESIUM 0.86 0.65* -- -- -- -- -- -- PHOS -- 3.3 -- -- -- -- -- -- PROT -- -- -- -- -- 6.2 -- -- ALBUMIN -- -- -- -- -- 3.6 -- -- AST -- -- -- -- -- 15 -- -- ALT -- -- -- -- -- 13 -- -- ALKPHOS -- -- -- -- -- 70 -- -- BILITOT -- -- -- -- -- 0.2 -- -- ESTGFR -- >60 >60 -- -- >60 -- -- LACTATEVEN -- -- -- 2.9* 2.5* -- 3.7* 2.1 CBC Recent Labs 07/14/17 0036 WBC 14.6* RBC 4.57* HGB 14.1 HCT 42.1 MCV 92.1 MCH 30.9 MCHC 33.5 MPV 10.2 ASSESSMENT, MANAGEMENT, and DECISION MAKING: Neuro: Sedated for airway protection - tylenol, fentanyl gtt for pain control - propofol gtt for continued sedation ?? CV: PMH Afib with some ventricular bigeminy overnight. Currently in sinus bradycardia - currently stable ?? Pulm: nasally intubated, difficult airway - [facility] vent protocol - Dexamethasone x3 doses for airway edema - keep sedated today, will wean to extubate tomorrow if SBT and cuff leak favorable - HOB 30 degrees ?? GI: DHT sutured in place - Start TF via DHT - nutrition consult - miralax, dulcolax suppository for bowel regimen - Stress ulcer prophylaxis: PPI Renal/FE: - decrease IVF once TF started ?? Hematology: - DVT prophylaxis: SCDs and lovenox ?? ID: - danyel-op abx unasyn q6 x3 doses ? Lines/Tubes/Drains: - 7.5 nasal ETT (left nare) - DHT (right nare) - R arterial line 07/13 - L PIV - iqbal 07/13 ?? Code Status: Full Code ?? Disposition: ICU IS PATIENT CRITICALLY ILL ? Is there a high potential of sudden, clinically significant, or life threatening deterioration? Yes Is there a need for direct personal assessment and management to treat/prevent multiple vital organfailure/deterioration? Yes PATIENT IS CRITICALLY ILL WITH THESE DIAGNOSES BEING MANAGED BY [facility] TEAM: Acute respiratory failure Difficult airway I personally performed 35 minutes of aggregate critical care time exclusive of procedures and teaching. This includes time spent during direct patient evaluation and reassessment, interpreting diagnostic tests, directing life and/or organ supporting interventions and documentation on the unit. Salazar Bhagat MD 07/14/2017 6:47 PM * Adam Montana, [facility] - 07/14/2017 2:03 PM EDT AMV Protocol: Yes SBT Protocol: Yes SBT: Passed overnight Vent Settings: Servo I Ventilator Mode: PS PEEP Set: 5 FiO2: (S) 21 % (As per sats) PSV: 5 Ventilator Measurements: Resp: 9 Vt Spontaneous: 846 Ve: 7.1 SpO2: 94 % EtCO2: 51 mmHg Airway: 7.5 @ 28 cm at the Nare. Skin Integrity: WDL Medications: Albuterol 6 Puffs Q4H PRN Breath Sounds: Clear/wheezes this afternoon Secretions: not able to obtain Assessment / Events / Plan of the Day: Pt is admitted to the ICU s/p tumor resection at right base of tongue/right neck dissection. He was received this morning nasally intubated through the left nostril, on PSV 5/5 40%. Per anesthesia, he was a difficult airway due to the tumor obstruction, at which time the team elected to nasally intubate. Difficult airway sign clearly posted at bedside. Tube is sutured in place, and marpaq tape was added this morning. Pt LS revealed inspiratory wheezes thisafternoon, for which albuterol was ordered with one dose administered. Suctioning ineffective, due to positioning of ETT. Will need to use extra long catheters for suctioning if pt requires airway noman arance. Plan to keep pt intubated for an additional 24 hours for airway protection and extubate tomorrow. Maintain on minimal vent settings, per AMV protocol. Wean FiO2 to maintain sats > 90%. Respiratory to be present at all turns. Continue to monitor. * Abigail Martino MD - 07/14/2017 9:38 AM EDT OTOLARYNGOLOGY - HEAD & NECK SURGERY DAILY PROGRESS NOTE Name: Jose Laws Age/Sex: 66 y.o. male Attending: Sriram Contreras MD Hospital Day: 2 1 Day Post-Op Patient ID/Reason for Admission Jose Laws is a 66 y.o. 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 Interval History Ventilated on PEEP 5, Pressure 5, FiO2 40% Surgery went well Vitals Last value 24hr Range Temperature: 36.8 ??C (98.2 ??F) Temp: [36.6 ??C (97.9 ??F)-37.1 ??C (98.8 ??F)] Heart Rate: 79 Heart Rate: [60-79] Blood Pressure: 104/55 BP: (103-104)/(55-56) Respiratory Rate: 16 Resp: [9-16] SpO2: 96 % SpO2: [96 %-100 %] Intake & Output Intake/Output Summary (Last 24 hours) at 07/14/17 0938 Last data filed at 07/14/17 0600 Gross per 24 hour Intake 8398 ml Output 2270 ml Net 6128 ml Physical Exam General: NAD, non-ill appearing Face: Symmetric without dysmorphic features Eyes: EOMI, conjunctiva healthy Ears: Auricles symmetric, no lesions Nose: Patent nares, grossly normal appearance; Dopoff tube in place Oral Cavity/Pharynx: Mucosa is pink, oropharynx symmetric Neck: Soft, trachea midline; with neck incision c/d/i with no hematoma/seroma. 2 JYOTHI neck drains with serosanguinous output Chest: Ventilator breath sounds, RR Neuro: Ventilated and sedated Labs Recent Labs 07/14/17 0036 07/13/17 2133 WBC 14.6* -- HGB 14.1 -- HCT 42.1 -- PLATELET 157 -- NA 144 Not Perf K 4.5 Not Perf CL 108* Not Perf CO2 19* 18* BUN 16 17 CREATININE 0.97 1.16 GLUCOSE 161 147 CALCIUM 7.7* 7.3* MAGNESIUM 0.65* -- PHOS 3.3 -- Imaging EXAMINATION: XR CHEST PA OR AP 1 VIEW ?? CLINICAL HISTORY: check ETT and DHT placement ?? TECHNIQUE: Portable 45 degree AP ?? COMPARISON: None ?? FINDINGS: Tip of endotracheal tube is 6 cm above the shelli, mid trachea, and projects over T3 vertebra. Dobbhoff tube tip is in the gastric body. No kinking. Hypoinflated lungs, platelike atelectasis right lung base. No dense airspace consolidation. ?? IMPRESSION ET tube in mid trachea. Dobbhoff tube tip in the gastric body with no Redundancy. EXAMINATION: CT NECK SOFT TISSUE W CONTRAST (GENERIC) ?? CLINICAL HISTORY: Intraoperative CT for navigation ?? TECHNIQUE: CT acquired of the upper neck for intraoperative navigation after administration of intravenous contrast. ?? COMPARISON: Neck CT 03/18/[address] 2016. ?? FINDINGS: The right base of tongue mass now appears across midline and there is increased extent along the right lateral pharyngeal wall. Increased thickening and abnormal enhancement of the epiglottis. Artifact makes evaluation of the aryepiglottic folds limited. No lymphadenopathy within the partially imaged neck. ?? IMPRESSION CT for intraoperative guidance. Increased extent of neoplasm as described above. ?? ASSESSMENT & PLAN Jose Laws is a 66 y.o. 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 1 Day Post-Op. Surgical/Head&Neck: Neck incision with aquaphor; 2 JYOTHI drains; last dose of dexamethasone today. Neurologic: Pain controlled with acetaminophen SHIRA, oxycodone PRN; Will do neuro exam when patient awake Cardiovascular: No issues Pulmonary: Intubated - Plan for extubation tomorrow Gastrointestinal: Bisacodyl suppository PRN for consipation Genitourinary: No issues Musculoskeletal: Bedrest Fluids/Electrolytes: IVF D5 1/2 NaCl 20K @100/hr Nutrition: NPO diet (Give Meds) ; Nutrition consult for tube feeds, appreciate recs, start today Infectious Disease: Unasyn 3g Q6 - continue now; Peridex Hematology: WBC 14.6 Endocrine: No issues Prophylaxis: Lovenox, SCD Disposition: ICU status, Full Code Discharge: Plan for d/c TBD; Needs TBD; Follow-up ENT with Dr. Contreras TBD __ Abigail Martino MD, PGY1 07/14/17 9:38 AM Pager: [phone] (For daytime 6AM - 6PM) Please contact on-call night ENT media relations intern for issues between 6PM - 6AM * Namita Hoffmann, RD - 07/14/2017 9:17 AM EDT Nutrition Services Tube Feeding Note 66 y.o. 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 Estimated body mass index is 36.26 kg/(m^2) as calculated from the following: Height as of this encounter: 191.8 cm (6' 3.5). Weight as of this encounter: 133.4 kg (294 lb). [place] Body Weight: 90.3 kg I/O last 1 completed shift: In: 1398 [I.V.:1298; Other:100] Out: 1070 [Urine:1015; Other:55] Enteral Access: NGT Last BM: none recorded since admission, 1 day pert meds: propofol, fentanyl, decadron (to be d/c today), miralax, others noted Lab Results Component Value Date NA 144 07/14/2017 K 4.5 07/14/2017 CL 108 (H) 07/14/2017 CO2 19 (L) 07/14/2017 BUN 16 07/14/2017 CREATININE 0.97 07/14/2017 GLUCOSE 161 07/14/2017 MAGNESIUM 0.65 (L) 07/14/2017 CALCIUM 7.7 (L) 07/14/2017 PHOS 3.3 07/14/2017 AST 15 07/13/2017 ALT 13 07/13/2017 ALKPHOS 70 07/13/2017 BILITOT 0.2 07/13/2017 *magnesium sulfate given for low mag Prealbumin 23 Nutrition needs assessed at: 2250 Calories (25 kcal/kg IBW) 160 gm Protein (1.5-2 gm/kg IBW) Assessment/Recommendations: Consulted for continuous and bolus tube feedings. Per nurse, pt will not be extubated today (? tomorrow) and propofol will continue at current rate. Propofol providing 1053 calories from lipid daily. While in ICU, suggest continuous tube feedings. While on Propofol: Suggest Peptamen Intense VHP at goal rate of 65 ml per hour to provide volume of 1300 ml plus 6 scoops (2 scoops 3 x day) of Beneprotein powder per day. (This rate is calculated to compensate for unplanned time off feedings due to potential procedures, etc.). This will provide 1450 kcal, 156 gm protein, 1092 ml water from formula (plus ~ 300 ml additional free water to mix protein powder), 87% ofRDI's for vitamins and minerals. If Propofol d/c: Suggest change tube feedings to Peptamen AF. Suggest Peptamen AF at goal rate of 73 ml per hour to provide volume of 1752 ml plus 5 scoops of Beneprotein powder per day. This will provide 2227 kcal, 162 gm protein, 1415 ml water from formula (plus ~ 250 ml additional free water to mix protein powder), 100% of RDI's for vitamins and minerals. Once pt transfers out to the floor and tolerating continuous feedings, can switch to bolus feedings. For bolus feeds: Initiate slowly giving 100 ml over 45-60 minutes and increasing by 50 ml per feed as tolerated until able to reach goal. Goal is 350 ml of Peptamen AF, 5 times per day plus 5 scoops beneprotein powder per day (suggest give 1 scoop 5 x day). This will provide 2225 kcal, 162 gm protein, 1413 ml water from formula (plus ~250 ml additional free water to mix protein powder), 100% of RDI's for vitamins and minerals. Flush with 60 ml water before each feeding and 60 ml water after each feeding to maintain patency and for hydration. Suggest check magnesium and phosphorus with daily labs. Suggest monitor triglyceride level frequently while on Propofol. Monitor weight. Discussed with Dr. Martino on the ENT service. Nutrition to follow. * Cecilia Doll, [facility]CHN[facility] - 07/14/2017 5:36 AM EDT Mechanical Ventilation Note Vent Settings: Pressure Support 5 PEEP 5 FIO2 0.4 ETT: Left Nare placed at: 28 cm at the nare Changes made this shift: transitioned to pressure support 5 PEEP 5 FIO2 0.4 SBT Protocol: Yes Pass SBT: Yes AMV Protocol: Yes Assessment: ETT secured via suture. Of note, the ship's pilot balloon line is wrapped up in the suture, however, we are able to add air to the cuff. ETT is 6 cm above the shelli, and medical team aware. * Emma Browne RN - 07/14/2017 5:29 AM EDT OUTCOME EVALUATION NOTE: OUTCOME SUMMARY: Patient arrived from PACU 2100, sedated on propofol. Fentanyl gtt initiated. NVPS 0. VSS, NSR. Patient is nasally intubated on PS, FIO2 40%. Passed SBT. PLAN MOVING FORWARD: Continue to monitor ventilation & sedation. Assess for readiness to extubate. * Adam Bhandari MD - 07/13/2017 10:57 PM EDT OTOLARYNGOLOGY - HEAD & NECK SURGERY POST OP CHECK Name: Jose Laws Age/Sex: 66 y.o. male Attending: Sriram Contreras MD Hospital Day: 1 Day of Surgery Patient ID/Reason for Admission Jose Laws is a 66 y.o. 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 Interval History Surgery: Procedure(s): PHARYNGECTOMY, LIMITED ([facility] 19.13) LARYNGOSCOPY, MICRO, LASER EXCISION ([facility] 12.14) @GLOSSECTOMY, PARTIAL,WITH UNILATERAL RADICAL NECK DISSECTION ([facility] 30.14) STEREOTACTIC COMPUTER-ASSTD NAVIGATIONAL CRANIAL EXTRADURAL ([facility] 3.18) MODIFIER LASER,CO2 MODIFIER MEDTRONIC Subjective/Events: Patient is sedated and intubated in ICU. Vitals Last value 24hr Range Temperature: 37 ??C (98.6 ??F) Temp: [36.6 ??C (97.9 ??F)-37 ??C (98.6 ??F)] Heart Rate: 60 Heart Rate: [53-62] Blood Pressure: 103/56 BP: (103-118)/(56-63) Respiratory Rate: 14 Resp: [9-20] SpO2: 98 % SpO2: [97 %-99 %] Intake & Output Intake/Output Summary (Last 24 hours) at 07/13/17 2301 Last data filed at 07/13/17 2200 Gross per 24 hour Intake 7160 ml Output 1460 ml Net 5700 ml Physical Exam General: NAD, non-ill appearing. Face: Symmetric without dysmorphic features Eyes: conjunctiva healthy bilaterally Ears: Auricles symmetric, no lesions Nose: Patent nares, grossly normal appearance Oral Cavity/Pharynx: Mucosa is pink, oropharynx is unable to be visualized. Neck: Soft, trachea midline, with incision c/d/i from midline to right mastoid. 2 JYOTHI drains anterior at back of neck with koolaid color drainage. Chest: LCTAB RRR determined by ventilator Neuro: Sedated Labs Recent Labs 07/13/17 2133 07/13/17 1256 NA Not Perf 142 K Not Perf 5.7* CL Not Perf 108* CO2 18* 20* BUN 17 17 CREATININE 1.16 1.06 GLUCOSE 147 155 CALCIUM 7.3* 7.9* Imaging No post-imaging ASSESSMENT & PLAN Jose Laws is a 66 y.o. male s/p Procedure(s): PHARYNGECTOMY, LIMITED (WRVU 19.13) LARYNGOSCOPY, MICRO, LASER EXCISION (WRVU 12.14) @GLOSSECTOMY, PARTIAL,WITH UNILATERAL RADICAL NECK DISSECTION (WRVU 30.14) STEREOTACTIC COMPUTER-ASSTD NAVIGATIONAL CRANIAL EXTRADURAL (WRVU 3.18) MODIFIER LASER,CO2 MODIFIER MEDTRONIC. Patient is doing well postoperatively. ICU intubated and sedated. Hemodynamically stable UOP adequate. Continue with current care plan. __ Adam Bhandari MD, 07/13/17 11:01 PM documented in this encounter H&P Notes * Zulema Cuevas MD - 07/13/2017 8:21 PM EDT ICU/CRITICAL CARE ADMISSION NOTE Patient Name: Jose Laws Patient Age: 66 y.o. Birthdate: 1950 Admit date: 07/13/2017 Attending Physician: Sriram Contreras MD History of Present Illness: Jose Laws is a 66 y.o. 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 During the case he was found to be hypoxic (min pO2 68 on FiO2 25%) with peak lactate 3.69 and hyperkalemia (peak 5.7) for which FiO2 was bumped to 100% with good response (pO2 96,lactate 2.4, K 3.7). He is admitted to the ICU post-operatively (07/13/2017) nasally intubated and sedated. Past Medical History: Past Medical History: Diagnosis Date ??? Arthritis ??? Atrial fibrillation ??? BPH (benign prostatic hyperplasia) ??? Cataract, right eye ??? ED (erectile dysfunction) ??? Hypothyroidism ??? Pulmonary embolism Past Surgical History: Past Surgical History: Procedure Laterality Date ??? ACHILLES TENDON SURGERY Right 1996 [facility] [place] ??? KNEE ARTHROSCOPY [facility] ??? PRO BIOPSY OROPHARYNX N/A 05/24/2017 BIOPSY, OROPHARYNX (WRVU 1.44) performed by Zafar Madera MD at [facility] MAIN OR ??? PRO LARYNGOSCOPY, DIRCT, OP SCOPE, BIOPSY N/A 05/24/2017 LARYNGOSCOPY, MICROSCOPE, WITH BIOPSY (WRVU 3.55) performed by Zafar Madera MD at [facility] MAIN OR ??? QUADRACEPS TENDON REPAIR Right 04/2016 [facility] ??? TONSILLECTOMY Allergies: Allergies Allergen Reactions ??? Ibuprofen CIS - Nausea/Vomiting ??? Clindamycin Other (See Comments) Memory issues. Home Medications: Prescriptions Prior to Admission Medication Sig Dispense Refill Last Dose ??? glucosamine sulfate 500 mg Tablet Take by mouth. 07/09/2017 at Unknown time ??? melatonin 5 mg Tablet Take by mouth. 07/08/2017 at Unknown time ??? tamsulosin (FLOMAX) 0.4 mg Capsule, Sust. Release 24 hr Take 0.4 mg by mouth daily. 07/08/2017 at Unknown time ??? apixaban (ELIQUIS) 5 mg Tablet Take 5 mg by mouth 2 times daily. 07/09/2017 at Unknown time ??? CIALIS 10 mg Tablet 0 Taking at Unknown time Family History: No family history on file. Social History: Social History Social History ??? Marital status: Spouse name: Briana ??? Number of children: 4 ??? 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 Smoking status: Former Smoker Packs/day: 1.00 Years: 27.00 Types: Cigarettes, Pipe Start date: 1968 Quit date: 1995 ??? Smokeless tobacco: Never Used Comment: quit cigarettes in 1995 - but smoked occasional pipe ??? Alcohol use Yes Comment: 1-2 drinks a week - liquor ??? Drug use: No Comment: hasn't smoked marijuana in 25 years - everyday ??? Sexual activity: Yes Other Topics Concern ??? 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 He is to Briana for 40 yrs. 4 children - All live in different [place] Enjoys raising Beef Cattle and doing Civil War and Living History and shoot Black powder/Antique firearms. He enjoys builiding Firearms/Blacksmithing - [place], [place], etc. Review of Systems: Not obtained due to patient's current condition Last value Range last 24 hrs Temperature Temp: 36.6 ??C (97.9 ??F) Temp: [36.6 ??C (97.9 ??F)-36.8 ??C (98.2 ??F)] Heart Rate Heart Rate: 62 Heart Rate: [53-62] Blood Pressure BP: 118/63 BP: (118)/(63) Respiratory Rate Resp: 14 Resp: [14-20] SpO2 SpO2: 98 % SpO2: [98 %-99 %] Art BP BP (Arterial Line): 86/51 BP (Arterial Line): (86)/(51) Physical Exam: General: intubated and sedated HEENT: nasally intubated through the left nare, DHT in the right nare; 2 anterior neck JYOTHI drains with minimal serosanguinous drainage CVS: RRR, no murmurs rubs or gallops appreciated Pulm: CTAB in anterior lung ramos, not using accessory muscles, no crackles or wheezing Abd: obese body habitus, soft, non-distended Skin: warm, dry Ext: WWP, minimal edema in bilateral LLE Neuro: sedated on propofol Labs No results for input(s): WBC, HGB, PLATELET in the last 72 hours. Recent Labs 07/13/17 1256 NA 142 K 5.7* CL 108* CO2 20* BUN 17 CREATININE 1.06 GLUCOSE 155 CALCIUM 7.9* ABG (Arterial Blood Gas) Lab Results Component Value Date pH Art 7.31 (L) 07/13/2017 pO2 Art 103 07/13/2017 pCO2 Art 37 07/13/2017 Microbiology: none Cards/Studies 04/30/17 TTE - EF 60% Assessment Jose Laws is a 66 y.o. male s/p radical neck dissection with pharyngectomy and partial glossectomy (07/13/2017) for base of tongue cancer. He is admitted to the ICU post-operatively nasally intubated and sedated. Primary Service: ENT Plan: Neuro: - pain: tylenol, fentanyl gtt - sedation: propofol gtt CV: PMH Afib - currently stable Pulm: nasally intubated - [facility] vent protocol GI: DHT - Diet: NPO diet (Give Meds). - NBOs: miralax, dulcolax supp - Stress ulcer prophylaxis: PPI - PRN: zofran Renal/FEK: - mIVFs: currently on d5 hNS 20k @100 (will f/u BMP and adjust accordingly) Hematology: - DVT prophylaxis: SCDs and lovenox MSK: - HOB > 30 degrees ID: - abx: unasyn q6 x3 doses Endocrine: - dexamethasone q8 x3 doses Lines/Tubes/Drains: - nasal ETT (left nare) - DHT (right nare) - R arterial line 07/13 - L PIV - iqbal 07/13 Code Status: Full Code Disposition: stable Zulema Cuevas MD 07/13/2017 Critical Care Red 1, [id number] * Sriram Contreras MD - 07/13/2017 7:37 AM EDT Patient Name: oJse Laws Patient Age: 66 y.o. Birthdate: 1950 Admit date: 07/13/2017 Attending Physician: Sriram Contreras MD The patient's history and physical exam have been reviewed and completed. There has been no interval change from that of the pre-operative history and physical exam done within the last 30 days. Indications: BOT cancer, right side Plan: TLM resection right BOT cnacer, right neck dissection. I presented the option of having this case performed under IRB Protocol Study [id number] (Improving throat cancer surgical outcomes through intra-operative image guidance). The case would be performed in the [facility]. I explained to the patient that the procedure itself would be the exact same procedurewith the addition of two intraoperative CT scans, one prior to placing the laryngoscope and the second during placement of the laryngoscope. In addition we would be using a CT compatible plastic laryngoscope, identical to the Wilfrido valleculascope that we normal use but 3D printed with FDA approved medical grade plastic. The study consent form was given to the patient for review. The patient was given opportunities to ask questions. documented in this encounter Procedure Notes * Avery Camarillo MD - 07/22/2017 1:12 AM EDT Arterial Line Placement Procedure Note Indication for Procedure: Arterial line was placed for invasive blood pressure monitoring and arterial blood gases. Procedure Diagnosis: Replacement arterial line due to accidental removal of first arterial line Location of Procedure: Critical Care. Risks and Benefits: The risks and benefits of this procedure were not reviewed and informed consentwas not applicable due to this being a replacement line. Time Out: Prior to the start of the procedure, the patient's identity, intended procedure, site/side, correct patient positioning and presence of the site samm was confirmed as applicable. The medical history and chart were reviewed to rule out potential contraindications to the planned procedure. Hand Hygiene: The regulator pin inserter did perform hand hygiene prior to arterial line insertion. Procedure Prep: Sterile draping was applied. Skin was prepped with chlorhexidine. Procedure Details: A 20 gauge, 2 inch catheter was placed in the right radial artery and secured with tape. Tegaderm was applied. Ultrasound was used for guidance. Guide wire was used in this procedure. The guide wire had a diameter of .018 inches. There were 2 attempts. Findings: There were no procedure complications. Blood was drawn with ease. Good wave form. Zulema Trujillo MD 07/22/2017 ADDENDUM: I was NOT present for the procedure described above. Avery Camarillo MD * Suzannechano Hedy Friedmansudha Patrick - 07/19/2017 5:51 PM EDTAssociated Order(s): INTUBATION Intubation Procedure Note Reason for Intubation: ?? Hypoxemia. Procedure Diagnosis: hypoxic respiratory failure Location of Procedure: ICU [facility]. Risks and Benefits: The risks and benefits of this procedure were not reviewed and informed consent was not obtained obtained. Time Out: Prior to the start of the procedure, the patient's identity, intended procedure, site/side, correct patient positioning and presence of the site samm was confirmed as applicable. The medical history and chart were reviewed to rule out potential contraindications to the planned procedure. Intubation Assessment: ?? Full stomach ?? 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 Bag/mask ventilation was easy Laryngoscope Blade and Size: D blade The endotracheal tube size was 7.5 mm. The tube was cuffed. Common Adjuvant Equipment: A stylet was used. An oral airway was not used. A nasal airway was not used. Additional Adjuvant Equipment: Type scope: C mac Aintree Intubation Catheter: no Combitube:no Intubating Laryngeal Mask Airway:none Laryngeal Mask Airway: none Other: Intubation Method: other: video laryngoscopy IV Medications: ?? 200 mg Propofol ?? 100 mg Rocuronium Other Medications: ?? Other: 320 mcg neosynephrine Insertion Attempts: There was 1 attempt. Visualization of Vocal Chords: A Grade I view of the vocal cords was observed. Confirmation of Tube Placement: ?? Chest X-ray ordered ?? end tidal CO2 ?? bilateral breath sounds ?? visualization of trachea Status Post Intubation: ?? The patient was hemodynamically stable. ?? The procedure was uncomplicated and atraumatic. Tube secured (at lip or nares): 24 cm Other post intubation status comments: Pt tolerated the procedure well without issue. Dr. Betancur was present for the duration of the procedure. Hedy Cat DO 07/19/2017 Associated attestation - Roberto Betancur MD - 07/20/2017 7:55 AM EDT Images from the original note were not included. I was the attending physician supervising the resident in the above care and I was present with theresident for the entire procedure. documented in this encounter Miscellaneous Notes * Plan of Care - Sriram Thompson ASSOCIATE PROFESSOR OF GEOGRAPHY - 07/29/2017 9:56 AM EDT Problem: Patient Care Overview Goal: Plan of Care Review Outcome: Ongoing (Interventions Implemented as Appropriate) 07/29/17 0953 Coping/Psychosocial Plan Of Care Reviewed With patient SPEECH-LANGUAGE PATHOLOGY Progress Note ASSESSMENT: Pt presents with functional oral manipulation of soft solids and liquids. Without signs of aspiration with soft solids and nectar-thick liquids. Positive signs of aspiration 50% of the time with thinliquids. Would maintain current diet. For discharge to rehab today. Rehab facility can provide speech pathology service. For further details, please refer to the corresponding flowsheet documentation. RECOMMENDATIONS: ?? Continue dysphagia soft diet and Saxis-thick liquids. ?? Upright to feed. ?? Small bites/sips. ?? Medications crushed in applesauce. Sriram Thompson MS [facility]-ASSOCIATE PROFESSOR OF GEOGRAPHY Speech-Language Pathologist Rehabilitation Medicine Pager - [phone] Problem: Acute Rehab Services Goal & Intervention Plan Goal: Dysphagia Goal Stand Alone Therapy Goal Outcome: Ongoing (Interventions Implemented as Appropriate) 07/26/17 0931 07/29/17 0953 Dysphagia Goal Dysphagia Goal, Date Established 07/26/17 -- Dysphagia Goal, Time to Achieve by discharge -- Dysphagia Goal, Activity Type Pt will tolerate least restrictive diet without signs of aspiraiton. -- Dysphagia Goal, Outcome -- goal partially met * Plan of Care - Abeba [facility] RN - 07/29/2017 12:18 AM EDT Problem: Skin Integrity Impairment, Risk/Actual (Adult) Goal: Identify Related Risk Factors and Signs and Symptoms Related risk factors and signs and symptoms are identified upon initiation of Human Response Clinical Practice Guideline (CPG) Outcome: Ongoing (Interventions Implemented as Appropriate) 07/23/17 1648 Skin Integrity Impairment, Risk/Actual Skin Integrity Impairment, Risk/Actual: Related Risk Factors cognitive impairment;edema;immobility;infection/disease process;sensory impairment;skin disorders;surgery/procedure Goal: Skin Integrity/Wound Healing Patient will demonstrate the desired outcomes by discharge/transition of care. Outcome: Ongoing (Interventions Implemented as Appropriate) 07/29/17 0010 Skin Integrity Impairment, Risk/Actual (Adult) Skin Integrity/Wound Healing making progress toward outcome Problem: Pain, Acute (Adult) Goal: Identify Related Risk Factors and Signs and Symptoms Related risk factors and signs and symptoms are identified upon initiation of Human Response Clinical Practice Guideline (CPG) Outcome: Ongoing (Interventions Implemented as Appropriate) 07/26/17 1826 07/29/17 0010 Pain, Acute Related Risk Factors (Acute Pain) -- communication barrier;surgery;disease process Signs and Symptoms (Acute Pain) fatigue/weakness -- Goal: Acceptable Pain Control/Comfort Level Patient will demonstrate the desired outcomes by discharge/transition of care. Outcome: Ongoing (Interventions Implemented as Appropriate) 07/29/17 0010 Pain, Acute (Adult) Acceptable Pain Control/Comfort Level achieves outcome Problem: Patient Care Overview Goal: Plan of Care Review Outcome: Ongoing (Interventions Implemented as Appropriate) 07/28/17 1710 07/28/17 2135 Coping/Psychosocial Plan Of Care Reviewed With -- patient Plan of Care Review Progress progress toward functional goals as expected -- OUTCOME EVALUATION NOTE: OUTCOME SUMMARY: No acute events this shift. Denies pain. O2 sats stable on RA. Wore CPAP overnight. One small mucoid BM this shift, not enough stool for a sample. Denied abdominal pain. Tolerating dysphagia soft andnectar thickened liquids well. PLAN MOVING FORWARD: Continue to monitor pain, labs and strict 1&O. Notify MDs as necessary for pertinent pt condition changes. Possible DC to rehab tomorrow. INDIVIDUALIZED FALL PREVENTION INTERVENTIONS: Patient-specific fall risk factors per assessment: [current deficits]: Generalized weakness, postop Assistance [level of assistance required for transfers and ambulation]: SBA w/ walker Supervision [direct monitoring required during toileting and ADLs]: Eyes on Surveillance [continuous indirect monitoring]: Masimo, door open throughout shift, call light w/in reach and using appropriately, bed alarm Patient-specific fall prevention interventions for sensory deficits provided, if applicable: n/a CPG GOAL OUTCOME EVALUATION: Goal: Fall Prevention-Safe Patient Handling Outcome: Ongoing (Interventions Implemented as Appropriate) 07/28/17 1100 07/28/17213407/28/17 2343 Restraint Interventions Safety Promotion/Fall Prevention -- activity supervised;safety round/check completed;nonskid shoes/slippers when out of bed -- Positioning Body Position -- -- side-lying, right Daily Care Interventions Self-Care Promotion independence encouraged;BADL personal objects within reach -- -- Bradford Fall Risk History of Falling -- 0 -- Secondary Diagnosis -- 15 -- Ambulatory Aids -- 15 -- Intravenous Therapy/Heparin/Saline Lock -- 20 -- Gait/Transferring -- 10 -- Mental Status -- 0 -- Score -- 60 -- OTHER Bradford Fall Risk -- High -- Goal: Infection Control Outcome: Ongoing (Interventions Implemented as Appropriate) 07/28/17213407/29/17 0010 Safety Interventions Isolation Precautions standard precautions maintained -- Infection Prevention rest/sleep promoted;single patient room provided -- Coping Strategies Supportive Measures -- goal setting facilitated;decision-making supported;positive reinforcement provided;problem solving facilitated;self- responsibility promoted;self-reflection promoted * Plan of Care - Jeannie Stiles RN - 07/28/2017 5:27 PM EDT Problem: Skin Integrity Impairment, Risk/Actual (Adult) Goal: Identify Related Risk Factors and Signs and Symptoms Related risk factors and signs and symptoms are identified upon initiation of Human Response Clinical Practice Guideline (CPG) Outcome: Ongoing (Interventions Implemented as Appropriate) 07/23/17 1648 Skin Integrity Impairment, Risk/Actual Skin Integrity Impairment, Risk/Actual: Related Risk Factors cognitive impairment;edema;immobility;infection/disease process;sensory impairment;skin disorders;surgery/procedure Goal: Skin Integrity/Wound Healing Patient will demonstrate the desired outcomes by discharge/transition of care. Outcome: Ongoing (Interventions Implemented as Appropriate) 07/23/17 1648 Skin Integrity Impairment, Risk/Actual (Adult) Skin Integrity/Wound Healing making progress toward outcome Problem: Pain, Acute (Adult) Goal: Identify Related Risk Factors and Signs and Symptoms Related risk factors and signs and symptoms are identified upon initiation of Human Response Clinical Practice Guideline (CPG) Outcome: Ongoing (Interventions Implemented as Appropriate) 07/23/17 1648 07/26/17 1826 Pain, Acute Related Risk Factors (Acute Pain) communication barrier;disease process;surgery -- Signs and Symptoms (Acute Pain) -- fatigue/weakness Goal: Acceptable Pain Control/Comfort Level Patient will demonstrate the desired outcomes by discharge/transition of care. Outcome: Ongoing (Interventions Implemented as Appropriate) 07/24/17 0444 Pain, Acute (Adult) Acceptable Pain Control/Comfort Level making progress toward outcome Problem: Patient Care Overview Goal: Plan of Care Review Outcome: Ongoing (Interventions Implemented as Appropriate) 07/28/17 1529 07/28/17 1710 Coping/Psychosocial Plan Of Care Reviewed With patient -- Plan of Care Review Progress -- progress toward functional goals as expected OUTCOME EVALUATION NOTE: OUTCOME SUMMARY: R PIV removed this morning d/t no IV medications or fluids scheduled. L PIV intact and flushed without difficulty. Pt still having some frequency with urination and bowel movements. Pt reminded to call for assistance before getting up but needs reinforcement. R neck incision cleansed per MD order. Fingersticks and insulin D/C'd d/t glucose levels WNL. Speech pathology worked with the patient today and advanced diet to dysphagia soft and nectar thickened liquids. Case management met with patientand . No complaints of pain or nausea. VSS. Afebrile. PLAN MOVING FORWARD: Reinforce need for assistance when OOB. Maintain bed/chair alarm. Incision cleanse Q shift. Possible D/C to rehab tomorrow. INDIVIDUALIZED FALL PREVENTION INTERVENTIONS: Patient-specific fall risk factors per assessment: [current deficits]: Recent surgery, arthritis, Afib, PE Assistance [level of assistance required for transfers and ambulation]: Ax1-2 w/ walker Supervision [direct monitoring required during toileting and ADLs]: Eyes on, hands on Surveillance [continuous indirect monitoring]: Bed/Chair alarm, masimo, hourly rounding Patient-specific fall prevention interventions for sensory deficits provided, if applicable: [X] N/A CPG GOAL OUTCOME EVALUATION: Goal: Fall Prevention-Safe Patient Handling Outcome: Ongoing (Interventions Implemented as Appropriate) 07/28/17 1100 Restraint Interventions Safety Promotion/Fall Prevention activity supervised;fall prevention program maintained;nonskid shoes/slippers when out of bed;safety round/check completed Positioning Body Position up in chair Daily Care Interventions Self-Care Promotion independence encouraged;BADL personal objects within reach Bradford Fall Risk History of Falling 0 Secondary Diagnosis 15 Ambulatory Aids 15 Intravenous Therapy/Heparin/Saline Lock 20 Gait/Transferring 10 Mental Status 0 Score 60 OTHER Bradford Fall Risk High Goal: Infection Control Outcome: Ongoing (Interventions Implemented as Appropriate) 07/28/17 1100 Safety Interventions Isolation Precautions standard precautions maintained Infection Prevention environmental surveillance performed;rest/sleep promoted Coping Strategies Supportive Measures active listening utilized;verbalization of feelings encouraged Goal: Discharge Needs Assessment 07/13/17 0653 07/27/17 1722 07/27/17 1727 Activity/Self Care Review of Systems Equipment Currently Used at Home -- oxygen -- Current Health Anticipated Changes Related to Illness none -- -- Living Environment Transportation Available -- -- family or friend will provide Goal: Interdisciplinary Rounds/Family Conf Outcome: Ongoing (Interventions Implemented as Appropriate) 07/28/17 1710 Interdisciplinary Rounds/Family Conf Summary Discussed medications, diet, and discharge plan Participants nursing;physician;patient;family * Plan of Care - Otoniel Joshua OT - 07/28/2017 3:32 PM EDT Problem: Patient Care Overview Goal: Plan of Care Review Outcome: Ongoing (Interventions Implemented as Appropriate) 07/28/17 1529 Coping/Psychosocial Plan Of Care Reviewed With patient Plan of Care Review Progress improving Occupational Therapy Treatment Note Treatment Number: 2 Pertinent History of Current Problem: Jose Laws is a 66 y.o. 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 Pt demonstrating significant improvement in self care and functionalmobility since evaluation. Goals revised to reflect progress. Pt would continue to benefit from rehab prior to d/c home. Pt will benefit from ongoing therapeutic interventions to achieve pt's and therapy goals. Please refer to associated flowsheet data for treatment session details. Therapy Frequency: 2-4 times/wk Anticipated Equipment Needs at Discharge: (TBD) Anticipated Discharge Disposition: inpatient rehabilitation facility Pager: [phone] OTONIEL JOSHUA OT 07/28/2017 Occupational Therapy Rehabilitation Department Problem: Acute Rehab Services Goal & Intervention Plan Goal: Bathing Goal Stand Alone Therapy Goal Outcome: Ongoing (Interventions Implemented as Appropriate) 07/26/17 1541 07/28/17 1529 Bathing Goal Bathing Goal, Date Established 07/26/17 -- Bathing Goal, Time to Achieve 2 wks -- Bathing Goal, Activity Type Pt will transfer in/out of shower with CGA. -- Bathing Goal, Additional Goal Pt will perform seated shower with supervision after set up. -- Bathing Goal, Outcome -- goal ongoing Goal: Home Management Goal Stand Alone Therapy Goal Outcome: Ongoing (Interventions Implemented as Appropriate) 07/28/17 1529 Home Management Goal Home Mgmt Goal, Date Established 07/28/17 Home Mgmt Goal, Time To Achieve 2 wks Home Mgmt Goal, Activity Type Pt will ambulate household distance for ADL with supervision using least restrictive device. Home Mgmt Goal, Outcome Achieved goal revised Goal: LB Dressing Goal Stand Alone Therapy Goal Outcome: Ongoing (Interventions Implemented as Appropriate) 07/26/17 1541 07/28/17 1529 LB Dressing Goal LB Dressing Goal, Date Established 07/26/17 -- LB Dressing Goal, Time to Achieve 2 wks -- LB Dressing Goal, Activity Type Pt will dress LB with supervision using AE as needed. -- LB Dressing Goal, Outcome -- goal ongoing Goal: Toileting Goal Stand Alone Therapy Goal Outcome: Ongoing (Interventions Implemented as Appropriate) 07/28/17 1529 Toileting Goal Toileting Goal, Date Established 07/28/17 Toileting Goal, Time to Achieve 2 wks Toileting Goal, Activity Type Pt will be independent with all aspects of toileting. Toileting Goal, Outcome goal revised * Plan of Care - Sriram Thompson, ASSOCIATE PROFESSOR OF GEOGRAPHY - 07/28/2017 2:18 PM EDT Problem: Patient Care Overview Goal: Plan of Care Review Outcome: Ongoing (Interventions Implemented as Appropriate) 07/28/17 1413 Coping/Psychosocial Plan Of Care Reviewed With patient;spouse SPEECH-LANGUAGE PATHOLOGY Progress Note ASSESSMENT: Pt appears to be tolerating purees and honey-thick liquids. Functional oral manipulation of solids,purees and thickened liquids (nectar and honey). Pt exhibits a baseline level of throat clearing prior to, during and following feeding. Throat clearing is not time with swallow during feeding and does not increase in frequency, therefore does not appear related. Below diet recommendations are made. For further details, please refer to the corresponding flowsheet documentation. RECOMMENDATIONS: ?? Dysphagia soft diet and Saxis-thick liquids. ?? Upright to feed. ?? Small bites / sips. ?? Crush medications in applesauce when possible. Sriram Thompson MS [facility]-ASSOCIATE PROFESSOR OF GEOGRAPHY Speech-Language Pathologist Rehabilitation Medicine Pager - [phone] Problem: Acute Rehab Services Goal & Intervention Plan Goal: Dysphagia Goal Stand Alone Therapy Goal Outcome: Ongoing (Interventions Implemented as Appropriate) 07/26/17 0931 07/28/17 1413 Dysphagia Goal Dysphagia Goal, Date Established 07/26/17 -- Dysphagia Goal, Time to Achieve by discharge -- Dysphagia Goal, Activity Type Pt will tolerate least restrictive diet without signs of aspiraiton. -- Dysphagia Goal, Outcome -- goal partially met * Plan of Care - Dixie Randhawa RN - 07/28/2017 7:16 AM EDT Problem: Skin Integrity Impairment, Risk/Actual (Adult) Goal: Identify Related Risk Factors and Signs and Symptoms Related risk factors and signs and symptoms are identified upon initiation of Human Response Clinical Practice Guideline (CPG) Outcome: Ongoing (Interventions Implemented as Appropriate) 07/23/17 1648 Skin Integrity Impairment, Risk/Actual Skin Integrity Impairment, Risk/Actual: Related Risk Factors cognitive impairment;edema;immobility;infection/disease process;sensory impairment;skin disorders;surgery/procedure OUTCOME EVALUATION NOTE: OUTCOME SUMMARY: VSS, afebrile. No insulin required this shift. Pt up frequently to use the commode/urinal/bathroom.Urinating aprox. 100 mL's each time. No adverse events overnight. PLAN MOVING FORWARD: Monitor I/O D/C? INDIVIDUALIZED FALL PREVENTION INTERVENTIONS: Patient-specific fall risk factors per assessment: [current deficits]: IV tubing/pole, weakness, medication therapy. Assistance [level of assistance required for transfers and ambulation]: x1-2 assist. Supervision [direct monitoring required during toileting and ADLs]: Hands on. Surveillance [continuous indirect monitoring]: Hourly rounding, bed alarm, call srinivasan within reach, bed in lowest position. Patient-specific fall prevention interventions for sensory deficits provided, if applicable: [X] N/A CPG GOAL OUTCOME EVALUATION: Goal: Skin Integrity/Wound Healing Patient will demonstrate the desired outcomes by discharge/transition of care. Outcome: Ongoing (Interventions Implemented as Appropriate) 07/23/17 1648 Skin Integrity Impairment, Risk/Actual (Adult) Skin Integrity/Wound Healing making progress toward outcome Problem: Pain, Acute (Adult) Goal: Identify Related Risk Factors and Signs and Symptoms Related risk factors and signs and symptoms are identified upon initiation of Human Response Clinical Practice Guideline (CPG) Outcome: Ongoing (Interventions Implemented as Appropriate) 07/26/17 1826 Pain, Acute Signs and Symptoms (Acute Pain) fatigue/weakness Goal: Acceptable Pain Control/Comfort Level Patient will demonstrate the desired outcomes by discharge/transition of care. Outcome: Ongoing (Interventions Implemented as Appropriate) 07/24/17 0444 Pain, Acute (Adult) Acceptable Pain Control/Comfort Level making progress toward outcome Problem: Patient Care Overview Goal: Plan of Care Review Outcome: Ongoing (Interventions Implemented as Appropriate) 07/27/17 1230 07/27/172052 Coping/Psychosocial Plan Of Care Reviewed With -- patient Plan of Care Review Progress improving -- Goal: Fall Prevention-Safe Patient Handling Outcome: Ongoing (Interventions Implemented as Appropriate) 07/27/172052 Restraint Interventions Safety Promotion/Fall Prevention activity supervised;fall prevention program maintained;muscle strengthening facilitated;nonskid shoes/slippers when out of bed;safety round/check completed Daily Care Interventions Self-Care Promotion independence encouraged;BADL personal objects within reach;BADL personal routines maintained;meal setup provided;safe use of adaptive equipment encouraged OTHER Bradford Fall Risk High Goal: Infection Control Outcome: Ongoing (Interventions Implemented as Appropriate) 07/27/172052 Safety Interventions Isolation Precautions standard precautions maintained Infection Prevention cohorting utilized;rest/sleep promoted;single patient room provided Coping Strategies Supportive Measures active listening utilized;decision-making supported;goal setting facilitated;positive reinforcement provided;problem solving facilitated;relaxation techniques promoted;self-care encouraged;self-reflection promoted;self-responsibility promoted;verbalization of feelings encouraged Goal: Discharge Needs Assessment Outcome: Ongoing (Interventions Implemented as Appropriate) 07/13/17 0653 07/27/17 1722 07/27/17 1727 Activity/Self Care Review of Systems Equipment Currently Used at Home -- oxygen -- Current Health Anticipated Changes Related to Illness none -- -- Living Environment Transportation Available -- -- family or friend will provide Goal: Interdisciplinary Rounds/Family Conf Outcome: Ongoing (Interventions Implemented as Appropriate) 07/28/17 0638 Interdisciplinary Rounds/Family Conf Participants nursing;patient * Plan of Care - Jeannie Stiles RN - 07/27/2017 6:50 PM EDT Problem: Patient Care Overview Goal: Plan of Care Review Outcome: Ongoing (Interventions Implemented as Appropriate) 07/27/17 1230 Coping/Psychosocial Plan Of Care Reviewed With patient Plan of Care Review Progress improving OUTCOME EVALUATION NOTE: OUTCOME SUMMARY: Pt had a duplex study this AM that showed no DVTs. Pt worked with Speech pathology today. Speech switched pt to a puree diet with honey thickened liquids. Tube feeds D'C'd. Pt walked with PT/OT. 1 unit of insulin given for a blood sugar of 147 this afternoon. Heparin D/C'd at 1600 and lovenox shot given. Pt educated on Incentive Spirometer use. Pt showered today. No complaints of pain or nausea. VSS. Afebrile. PLAN MOVING FORWARD: Strict I+O. Monitor blood sugar. Encourage PO intake. Awaiting plan for D/C to senior care facility. INDIVIDUALIZED FALL PREVENTION INTERVENTIONS: Patient-specific fall risk factors per assessment: [current deficits]: Afib, PE, recent surgery Assistance [level of assistance required for transfers and ambulation]: Ax2 w/walker Supervision [direct monitoring required during toileting and ADLs]: Eyes on, hands on Surveillance [continuous indirect monitoring]: Bed alarm, masimo, hourly rounding, calls appropriately Patient-specific fall prevention interventions for sensory deficits provided, if applicable: [X] N/A CPG GOAL OUTCOME EVALUATION: Goal: Fall Prevention-Safe Patient Handling Outcome: Ongoing (Interventions Implemented as Appropriate) 07/27/17 0800 07/27/17 1713 Restraint Interventions Safety Promotion/Fall Prevention activity supervised;fall prevention program maintained;nonskid shoes/slippers when out of bed;safety round/check completed -- Positioning Body Position -- up in chair Daily Care Interventions Self-Care Promotion independence encouraged;BADL personal objects within reach -- Bradford Fall Risk History of Falling 0 -- Secondary Diagnosis 15 -- Ambulatory Aids 15 -- Intravenous Therapy/Heparin/Saline Lock 20 -- Gait/Transferring 10 -- Mental Status 0 -- Score 60 -- OTHER Bradford Fall Risk High -- Goal: Infection Control Outcome: Ongoing (Interventions Implemented as Appropriate) 07/27/17 0800 Safety Interventions Isolation Precautions standard precautions maintained Infection Prevention environmental surveillance performed;rest/sleep promoted Coping Strategies Supportive Measures active listening utilized;verbalization of feelings encouraged Goal: Discharge Needs Assessment Outcome: Ongoing (Interventions Implemented as Appropriate) 07/13/17 0653 07/27/17 1722 07/27/17 1727 Activity/Self Care Review of Systems Equipment Currently Used at Home -- oxygen -- Current Health Anticipated Changes Related to Illness none -- -- Living Environment Transportation Available -- -- family or friend will provide Goal: Interdisciplinary Rounds/Family Conf Outcome: Ongoing (Interventions Implemented as Appropriate) 07/27/17 1842 Interdisciplinary Rounds/Family Conf Summary Discussed medications and diet Participants nursing;physician;patient * Plan of Care - Cristian Nelson, PT - 07/27/2017 12:33 PM EDT Problem: Patient Care Overview Goal: Plan of Care Review Outcome: Ongoing (Interventions Implemented as Appropriate) 07/27/17 1230 Coping/Psychosocial Plan Of Care Reviewed With patient Plan of Care Review Progress improving Physical Therapy Note Treatment Number: 2 Pertinent History of Current Problem: Jose Laws is a 66 y.o. 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 Carcinoma of base of tongue ??? Benign prostatic hyperplasia Precautions/Restrictions: fall Precautions Comments: fall risk, aspiration precaution Living Environment Comment: Pt lives with his spouse. Prior Functional Level Comment: Pt is normally independent without an AD and for ADLs. His assists for IADLs. Assessment: Pt seen for PT treatment. Pt tolerated treatment well and was able to make progress towards PT goals. He tolerated ambulation into hallway with FWW and CGA, with 2nd person to assist withequipment. Ambulation distance limited by fatigue and decreased endurance. He will continue to benefit from skilled PT while he remains in the hospital. Please see the Rehab Evaluation Summaries section for detailed objective data and specifics of today's session. Mobility Recommendations: Pt to utilize FWW and CG/Malena for transfers and ambulation. 2nd person toassist with equipment. Please encourage 3-4 walks into hallway/day. Anticipated Physical Therapy Frequency: (2-5x/wk) Anticipated Equipment Needs at Discharge: (TBD) Anticipated Discharge Disposition: inpatient rehabilitation facility Pager: [phone] CRISTIAN NELSON, PT 07/27/2017 Physical Therapy Rehabilitation Department Problem: Acute Rehab Services Goal & Intervention Plan Goal: Bed Mobility Goal Stand Alone Therapy Goal Outcome: Ongoing (Interventions Implemented as Appropriate) 07/26/17 1329 07/27/17 1230 Bed Mobility Goal Bed Mobility Goal, Date Established 07/26/17 -- Bed Mobility Goal, Time to Achieve 30 days -- Bed Mobility Goal, Activity Type supine to sit/sit to supine -- Bed Mobility Goal, [place] Level independent -- Bed Mobility Goal, Outcome Achieved -- goal ongoing Goal: Gait Training Goal Stand Alone Therapy Goal Outcome: Ongoing (Interventions Implemented as Appropriate) 07/26/17 1329 07/27/17 1230 Gait Training Goal Gait Training Goal, Date Established 07/26/17 -- Gait Training Goal, Time to Achieve 30 days -- Gait Training Goal, [place] Level supervision required -- Gait Training Goal, Assist Device walker, rolling -- Gait Training Goal, Distance to Achieve >150ft -- Gait Training Goal, Additional Goal Pt able to negotiate at least 3 steps with rail and supervision-- Gait Training Goal, Outcome -- goal ongoing Goal: Goal Transfer Training Stand Alone Therapy Goal Outcome: Ongoing (Interventions Implemented as Appropriate) 07/26/17 1329 07/27/17 1230 Goal Transfer Training Transfer Training Goal, Date Established 07/26/17 -- Transfer Training Goal, Time to Achieve 30 days -- Transfer Training Goal, Activity Type tdx-mm-zljic/ltqka-bl-rpl;jaj-th-nqqwh/ugcml-pi-zwb -- Transfer Train Goal, [place] Level supervision required -- Transfer Training Goal, Assist Device walker, rolling -- Transfer Training Goal, Outcome -- goal ongoing * Plan of Care - Sriram Thompson, ASSOCIATE PROFESSOR OF GEOGRAPHY - 07/27/2017 10:59 AM EDT Problem: Patient Care Overview Goal: Plan of Care Review Outcome: Ongoing (Interventions Implemented as Appropriate) 07/27/17 1056 Coping/Psychosocial Plan Of Care Reviewed With patient SPEECH-LANGUAGE PATHOLOGY Progress Note ASSESSMENT: Pt presents with improved management of secretions today. Much reduced coughing on own secretions. Pt exhibits functional oral manipulation of purees, honey- thick liquids and nectar-thick liquids. Without signs of aspiration with purees and honey-thick liquids. Inconsistent signs of aspiration withnectar-thick liquids. Below diet recommendations are made. Given improvements in swallow, pt may beable to avoid dobhoff/PEG placement. For further details, please refer to the corresponding flowsheet documentation. RECOMMENDATIONS: ?? Puree diet with Honey-thick liquids. ?? Upright to feed. ?? Small bites/sips. Slow feeding rate. ?? Crush medications in applesauce. Sriram Thompson MS [facility]-ASSOCIATE PROFESSOR OF GEOGRAPHY Speech-Language Pathologist Rehabilitation Medicine Pager - [phone] Problem: Acute Rehab Services Goal & Intervention Plan Goal: Dysphagia Goal Stand Alone Therapy Goal Outcome: Ongoing (Interventions Implemented as Appropriate) 07/26/17 0931 Dysphagia Goal Dysphagia Goal, Date Established 07/26/17 Dysphagia Goal, Time to Achieve by discharge Dysphagia Goal, Activity Type Pt will tolerate least restrictive diet without signs of aspiraiton. * Plan of Care - Lorna Browne RN - 07/26/2017 10:52 PM EDT Problem: Patient Care Overview Goal: Plan of Care Review Outcome: Ongoing (Interventions Implemented as Appropriate) 07/26/17 2242 Coping/Psychosocial Plan Of Care Reviewed With patient Plan of Care Review Progress no change OUTCOME EVALUATION NOTE: OUTCOME SUMMARY: A&Ox4. Flat, very slow response. Masimo on. Bed alarm on. Call srinivasan in reach. -DTV 21:00-23:00, pt voided about 75 cc, PVR 260 cc. Will continue to monitor. freq voids over pm, sm amt out each time. -Hep gtt infusing. PTT therapeutic x2. Will continue to monitor. -sacrum mepilex changed. -OOB w/ walker and 2 assist. Unsteady gait. -PIV c/d/i. -BG WDL. -denied pain. -impulsive. PLAN MOVING FORWARD: -PEG tube. -IV abx -ASSOCIATE PROFESSOR OF GEOGRAPHY consult. -hep gtt. INDIVIDUALIZED FALL PREVENTION INTERVENTIONS: Patient-specific fall risk factors per assessment: [current deficits]: unsteady Assistance [level of assistance required for transfers and ambulation]: walker Supervision [direct monitoring required during toileting and ADLs]: 2 assist, hands on Surveillance [continuous indirect monitoring]: Masimo, call srinivasan, bed alarm. Patient-specific fall prevention interventions for sensory deficits provided, if applicable: yes CPG GOAL OUTCOME EVALUATION: Goal: Individualization & Mutuality Outcome: Outcome (s) achieved Date Met: 07/26/17 07/26/17 0836 07/26/17 1826 Individualization Patient Specific Preferences I want to get up. I need to get up Can I have pie? I have not eatenin weeks -- Patient Specific Goals -- To get out of bed and have iqbal catheter taken out Goal: Fall Prevention-Safe Patient Handling Outcome: Ongoing (Interventions Implemented as Appropriate) 07/26/17 1015 07/26/17 2204 Restraint Interventions Safety Promotion/Fall Prevention -- nonskid shoes/slippers when out of bed Positioning Body Position -- independent Daily Care Interventions Self-Care Promotion independence encouraged;BADL personal objects within reach;safe use of adaptiveequipment encouraged -- Bradford Fall Risk History of Falling -- 0 Secondary Diagnosis -- 15 Ambulatory Aids -- 15 Intravenous Therapy/Heparin/Saline Lock -- 20 Gait/Transferring -- 10 Mental Status -- 15 Score -- 75 OTHER Bradford Fall Risk -- High Goal: Infection Control Outcome: Ongoing (Interventions Implemented as Appropriate) 07/26/17 2204 Safety Interventions Isolation Precautions standard precautions maintained Infection Prevention rest/sleep promoted Coping Strategies Supportive Measures active listening utilized * Plan of Care - Jeannie Stiles RN - 07/26/2017 6:44 PM EDT Problem: Skin Integrity Impairment, Risk/Actual (Adult) Goal: Identify Related Risk Factors and Signs and Symptoms Related risk factors and signs and symptoms are identified upon initiation of Human Response Clinical Practice Guideline (CPG) Outcome: Ongoing (Interventions Implemented as Appropriate) 07/23/17164707/26/17 1826 Skin Integrity Impairment, Risk/Actual Skin Integrity Impairment, Risk/Actual: Related Risk Factors cognitive impairment;edema;immobility;infection/disease process;sensory impairment;skin disorders;surgery/procedure -- Signs and Symptoms (Skin Integrity Impairment) -- edema;rash Goal: Skin Integrity/Wound Healing Patient will demonstrate the desired outcomes by discharge/transition of care. Outcome: Ongoing (Interventions Implemented as Appropriate) 07/23/17 1648 Skin Integrity Impairment, Risk/Actual (Adult) Skin Integrity/Wound Healing making progress toward outcome Problem: Pain, Acute (Adult) Goal: Identify Related Risk Factors and Signs and Symptoms Related risk factors and signs and symptoms are identified upon initiation of Human Response Clinical Practice Guideline (CPG) Outcome: Ongoing (Interventions Implemented as Appropriate) 07/23/17164707/26/17 1826 Pain, Acute Related Risk Factors (Acute Pain) communication barrier;disease process;surgery -- Signs and Symptoms (Acute Pain) -- fatigue/weakness Goal: Acceptable Pain Control/Comfort Level Patient will demonstrate the desired outcomes by discharge/transition of care. Outcome: Ongoing (Interventions Implemented as Appropriate) 07/24/17 0444 Pain, Acute (Adult) Acceptable Pain Control/Comfort Level making progress toward outcome Problem: Patient Care Overview Goal: Plan of Care Review Outcome: Ongoing (Interventions Implemented as Appropriate) 07/26/17 1541 07/26/171825 Coping/Psychosocial Plan Of Care Reviewed With patient -- Plan of Care Review Progress -- progress towards functional goals is fair OUTCOME EVALUATION NOTE: OUTCOME SUMMARY: Pt voiced this morning that he wanted to get out of bed. MD notified and consulted speech, PT, and OT. Speech determined that the patient is not able to swallow yet. PT/OT got the patient OOB to chair. Flomax D/C'd d/t inability to push through NG tube. Pt appeared anxious and frustrated this morning. Immersion Metal Cleaner consulted and talked with patient today. [place] [facility] [place] determined[place] tube feeding was leaking from the patient's nose. Tube feeds were paused and MD notified. During the transfer back to chair, the patient accidentally stepped on the feeding tube and the NG tube was inadvertently removed. MD notified and placed a new NG tube. Prior to a placement verification x-ray, second NG tube fell out of pt's nose while standing. MD aware. Liquid tylenol switched to IV. Pt's iqbal catheter removed at 1700. Pt has not voided yet this shift. Incision cleaned with hydrogen peroxide and sterile water. No complaints of pain or nausea. VSS. Afebrile. PLAN MOVING FORWARD: Pt needs to urinate by 2100. Possible NG tube placement tomorrow. Possible PEG tube placement this week. Speech therapy reevaluating tomorrow. INDIVIDUALIZED FALL PREVENTION INTERVENTIONS: Patient-specific fall risk factors per assessment: [current deficits]: PE, prolonged bed rest, Afib Assistance [level of assistance required for transfers and ambulation]: Ax2 with walker Supervision [direct monitoring required during toileting and ADLs]: Eyes on, hands on Surveillance [continuous indirect monitoring]: Hourly rounding, calls appropriately Patient-specific fall prevention interventions for sensory deficits provided, if applicable: [X] N/A CPG GOAL OUTCOME EVALUATION: Goal: Individualization & Mutuality Outcome: Ongoing (Interventions Implemented as Appropriate) 07/26/171825 Individualization Patient Specific Goals To get out of bed and have iqbal catheter taken out Goal: Fall Prevention-Safe Patient Handling Outcome: Ongoing (Interventions Implemented as Appropriate) 07/26/17 1015 Restraint Interventions Safety Promotion/Fall Prevention activity supervised;fall prevention program maintained;nonskid shoes/slippers when out of bed;safety round/check completed Positioning Body Position with 2-person assist Daily Care Interventions Self-Care Promotion independence encouraged;BADL personal objects within reach;safe use of adaptiveequipment encouraged Bradford Fall Risk History of Falling 0 Secondary Diagnosis 15 Ambulatory Aids 0 Intravenous Therapy/Heparin/Saline Lock 20 Gait/Transferring 10 Mental Status 0 Score 45 OTHER Bradford Fall Risk High Goal: Infection Control Outcome: Ongoing (Interventions Implemented as Appropriate) 07/26/17 1015 Safety Interventions Isolation Precautions standard precautions maintained Infection Prevention environmental surveillance performed;rest/sleep promoted;single patient room provided Coping Strategies Supportive Measures active listening utilized;verbalization of feelings encouraged Goal: Discharge Needs Assessment Outcome: Ongoing (Interventions Implemented as Appropriate) 07/13/17 0653 Current Health Anticipated Changes Related to Illness none Living Environment Transportation Available family or friend will provide Goal: Interdisciplinary Rounds/Family Conf Outcome: Ongoing (Interventions Implemented as Appropriate) 07/26/17 1826 Interdisciplinary Rounds/Family Conf Summary Discussed NG tube, medications, iqbal catheter Participants nursing;physician;patient * Plan of Care - Otoniel Joshua OT - 07/26/2017 3:46 PM EDT Problem: Patient Care Overview Goal: Plan of Care Review Outcome: Ongoing (Interventions Implemented as Appropriate) 07/26/17 1541 Coping/Psychosocial Plan Of Care Reviewed With patient Occupational Therapy Evaluation Pertinent History of Current Problem: Jose Laws is a 66 y.o. 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 Carcinoma of base of tongue ??? Benign prostatic hyperplasia Precautions Comments: fall risk, NGT, iqbal, aspiration precautions Living Environment Comment: Pt lives with his spouse, home set up unclear. Prior Functional Level Comment: Pt reports that he is normally independent with ADL. His tendsto do the cooking and cleaning at home. Both pt and are retired. Assessment: Pt has been seen by OT for evaluation, please refer to associated flowsheet data for details. Jose Laws presents with activity limitations and/or participation restrictions due to decreased activity tolerance, generalized weakness, impaired standing balance, and mild confusion during session. These impairments have a significant impact on the patient's performance in the following areas of occupation: BADL, IADL, and functional mobility. Pt tolerated transfer to chair withmod-max A of 2. Pt incontinent of stool during transfer and dependent for cleanup. Pt demonstratinga lack of insight into current functional limitations and would greatly benefit from rehab to maximize independence prior to d/c home. Pt would benefit from ongoing OT interventions to increase independence with self care and progress functional mobility while hospitalized. Staff Recommendations: Encourage OOB activity and participation in all self care tasks; 2 person assist for transfers Therapy Frequency: 2-4 times/wk Anticipated Equipment Needs at Discharge: (TBD) Anticipated Discharge Disposition: inpatient rehabilitation facility Pager: [phone] OTONIEL JOSHUA OT 07/26/2017 Occupational Therapy Rehabilitation Department 2017 OT Evaluation Code Rationale: ?? Diagnosis & Pertinent Co-Morbidities affecting Plan of Care: see PMHx above ?? Clinical presentation: Stable Evolving Unstable X ?? Occupational Profile & Client History: Brief Expanded Extensive X ?? Assessment of Occupational Performance: 1-3 performance deficits 3-5 performance deficits X 5 + performance deficits Clinical decision making of moderate complexity using clinical observation of functional tasks and/or standardized assessment measures. Problem: Acute Rehab Services Goal & Intervention Plan Goal: Bathing Goal Stand Alone Therapy Goal Outcome: Ongoing (Interventions Implemented as Appropriate) 07/26/17 1541 Bathing Goal Bathing Goal, Date Established 07/26/17 Bathing Goal, Time to Achieve 2 wks Bathing Goal, Activity Type Pt will transfer in/out of shower with CGA. Bathing Goal, Additional Goal Pt will perform seated shower with supervision after set up. Goal: Home Management Goal Stand Alone Therapy Goal Outcome: Revised Date Met: 07/26/17 07/26/17 1541 Home Management Goal Home Mgmt Goal, Date Established 07/26/17 Home Mgmt Goal, Time To Achieve 2 wks Home Mgmt Goal, Activity Type Pt will ambulate to/from the bathroom with CGA using least restrictive device. Goal: LB Dressing Goal Stand Alone Therapy Goal Outcome: Ongoing (Interventions Implemented as Appropriate) 07/26/17 1541 LB Dressing Goal LB Dressing Goal, Date Established 07/26/17 LB Dressing Goal, Time to Achieve 2 wks LB Dressing Goal, Activity Type Pt will dress LB with supervision using AE as needed. Goal: Toileting Goal Stand Alone Therapy Goal Outcome: Ongoing (Interventions Implemented as Appropriate) 07/26/17 1541 Toileting Goal Toileting Goal, Date Established 07/26/17 Toileting Goal, Time to Achieve 2 wks Toileting Goal, Activity Type Pt will transfer on/off toilet with CGA. Toileting Goal, Additional Goal Pt will manage hygiene /p toileting with supervision. * Plan of Care - Cristian Nelson, PT - 07/26/2017 1:33 PM EDT Problem: Patient Care Overview Goal: Plan of Care Review Outcome: Ongoing (Interventions Implemented as Appropriate) 07/26/17 1329 Coping/Psychosocial Plan Of Care Reviewed With patient Physical Therapy Note Evaluation Pertinent History of Current Problem: Jose Laws is a 66 y.o. 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 Carcinoma of base of tongue ??? Benign prostatic hyperplasia Precautions/Restrictions: fall Precautions Comments: NG tube, iqbal, sips & chips, aspiration precaution Living Environment Comment: Pt lives with his spouse. Prior Functional Level Comment: Pt is normally independent without an AD and for ADLs. His assists for IADLs. Assessment: Pt seen for PT evaluation in collaboration with skilled OT. Pt presents to PT with decreased strength, decreased endurance and impaired balance which limits his functional mobility and activity tolerance. Pt required mod/maxA x 2 and FWW for transfers and was incontinent of stool. He was dependent for pericare and was fatigued after transfer to chair. Anticipate he will benefit from further skilled therapy in an inpatient setting at discharge pending clinical course and progress while in the hospital. Please see the Rehab Evaluation Summaries section for detailed objective data and specifics of today's session. Mobility Recommendations: Pt to utilize FWW and 2 assist for standing and transfer OOB to chair. Please encourage OOB to chair 3x/daily. Anticipated Physical Therapy Frequency: (2-5x/wk) Anticipated Equipment Needs at Discharge: (TBD) Anticipated Discharge Disposition: inpatient rehabilitation facility Pager: [phone] CRISTIAN NELSON, PT 07/26/2017 Physical Therapy Rehabilitation Department 2017 PT Evaluation Code Rationale: ?? Diagnosis & Pertinent Co-Morbidities affecting Plan of Care: See PMHx above ?? Clinical presentation: Stable Evolving Unstable x ?? Examination of Body Systems: Addressing 1-2 elements Addressing 3 + elements x Addressing 4 + elements Clinical decision making of moderate complexity using standardized patient assessment instrument and measurable assessment of functional outcome. Problem: Acute Rehab Services Goal & Intervention Plan Goal: Bed Mobility Goal Stand Alone Therapy Goal Outcome: Ongoing (Interventions Implemented as Appropriate) 07/26/17 1329 Bed Mobility Goal Bed Mobility Goal, Date Established 07/26/17 Bed Mobility Goal, Time to Achieve 30 days Bed Mobility Goal, Activity Type supine to sit/sit to supine Bed Mobility Goal, [place] Level independent Goal: Gait Training Goal Stand Alone Therapy Goal Outcome: Ongoing (Interventions Implemented as Appropriate) 07/26/17 1329 Gait Training Goal Gait Training Goal, Date Established 07/26/17 Gait Training Goal, Time to Achieve 30 days Gait Training Goal, [place] [employer] Level supervision required Gait Training Goal, Assist Device walker, rolling Gait Training Goal, Distance to Achieve >150ft Gait Training Goal, Additional Goal Pt able to negotiate at least 3 steps with rail and supervision Goal: Goal Transfer Training Stand Alone Therapy Goal Outcome: Ongoing (Interventions Implemented as Appropriate) 07/26/17 1329 Goal Transfer Training Transfer Training Goal, Date Established 07/26/17 Transfer Training Goal, Time to Achieve 30 days Transfer Training Goal, Activity Type vjg-ky-xdabi/wkjbx-rc-rgp;ljh-nv-vctsn/iiygp-ns-ico Transfer Train Goal, [place] [employer] Level supervision required Transfer Training Goal, Assist Device walker, rolling * Consult Note - Deanna Menjivar MD - 07/26/2017 11:08 AM EDT INITIAL HEME/ ONC CONSULT DATE OF CONSULT 07/26/2017 PATIENT Jose Laws 1950 REFERRING PHYSICIAN SRIRAM CONTRERAS CONSULTATION QUESTION Recommendations for anticoagulation leaving the hospital HISTORY PRESENT ILLNESS This patient is a 66 y.o. male with a relevant past medical history significant for oropharyngeal cancer, malignancy associated VTE and Afib (CHADS-VASc of 1) who presented to [facility] for radical neck dissection on 07/13/17. We were consulted to assist in choice of anticoagulant. Prior to the patient's surgery on 07/13 his last dose of Apixiban was on Monday 07/09. He underwent radical neck dissection with pharyngectomy and partial glossectomy (07/13/2017) for base of tongue cancer. He was intubated nasally and went to the ICU for post-operative care because of hypoxia and lactic acidosis. The patient was on enoxaparin 40mg nightly from 07/13/17 to 07/19/17. On 07/20/[address] PE for increased work of breathing and hypoxia, and found to have multiple bilateral PEs. He was then started on Heparin gtt. He has been tolerating heparin gtt without issues. Review of Systems Constitutional: Negative appetite change, fatigue, fevers, chills, night sweats, unexpected weight change. Eyes: Negative visual changes, irritation HENT: Negative oral irritation, sores, dysphagia, odynophagia, tinnitus, hearing problems. Respiratory: Negative cough, wheeze, shortness of breath. Cardiovascular: Negative chest pain, paroxysmal nocturnal dyspnea, dyspnea on exertion, orthopnea, palpitations, leg swelling, calf cramping Gastrointestinal: Negative heartburn, abdominal pain, nausea, vomitting, diarrhea, constipation, blood in stool, melena. Genitourinary: Negative dysuria, urgency, frequency, hematuria Skin:Negative rash or ulcer. Muskuloskeletal: Negative for arthralgia, myalgia. Neurological:Negative headaches, dizziness, lightheadedness, tingling, numbness, weakness, facial weakness, speech abnormalities, Hematological: Negative adenopathy, easy bruising. Psych: no changes in mood, no flight of ideas Oncology history: Cancer: SCC of base of tongue, HPV positive Presentation:?? 03/2017 - had globus sensation for many years (since 2007) but started to increase month before presentation. Also found to have PE. Former smoker with 25pack-years. Diagnosis?? SCC of oropharynx pT2N0 Molecular data:?? or Significant Histo 05/2017: HPV positive 07/2017: tumor 2.5cm. G3 (poorly differentiated) 15 LNs examined, all negative Margins negative, except for base of tongue Staging/Pretreatment Evaluation:?? CT 03/2017: R BOT and R tonsil tumor, abuts hyoid but pre-epi fatclear. TTE 04/30/2017 -EF 60% -noted Afib, otherwise nml Biopsy 05/24/17 PET/CT 06/17/2017 -informative at primary. 'Warm' R parotid node, similar to 2008, small. LEFT zone II node appears benign and unchanged vs 2008. Peripheral R anterolateral lung nodule, 5 mm. Treatment Course:?? Radical Neck Dissection with Pharyngectomy and Partial Glossectomy (07/13/2017) Clinically Relevant Comorbidities/Complications: -Afib: CHADS2-VASc=1 (age >65) -Rightsided PE in 03/2017: also was diagnosed with malignancy at that time (SCC of oropharynx) THROMBOSIS RISK FACTORS Risk Factor Comment Obesity (BMI >30 kg/m2) V/A Y BMI 39.5 Diabetes V/A N Current smoker V/A N Estrogen or estrogen/progestin V/A N V/A N Inflammatory disease V/A N Recent surgery (<3 months) V Y Radical neck dissection on 07/13/17. Prior to 2nd VTE event (not the first) Recent hospitalization (<3 mo) V Y Prior to 2nd VTE, not first Recent travel (<3 mo) V N Period of immobility V N Documented thrombophilia V N Accident/Trauma V/A N Cancer or treatment for cancer V/A Y SCC of Oropharynx diagosed same type as first VTE Blood transfusion V/A N Central venous catheter V N Family history (1st degree) V/A N Varicose veins/venous insuff. V N Hypertension A N Hyperlipidemia A N Vascular disease A N MEDICATIONS AND ALLERGIES -reviewed PAST MEDICAL HISTORY Past Medical History: Diagnosis Date ??? Arthritis ??? Atrial fibrillation ??? BPH (benign prostatic hyperplasia) ??? Cataract, right eye ??? ED (erectile dysfunction) ??? Hypothyroidism ??? Pulmonary embolism PAST SURGICAL HISTORY Past Surgical History: Procedure Laterality Date ??? ACHILLES TENDON SURGERY Right 1996 [facility] ??? KNEE ARTHROSCOPY [facility] ??? PRO BIOPSY OROPHARYNX N/A 05/24/2017 BIOPSY, OROPHARYNX (WRVU 1.44) performed by Zafar Madera MD at [facility] MAIN OR ??? PRO LARYNGOSCOPY, DIRCT, OP SCOPE, BIOPSY N/A 05/24/2017 LARYNGOSCOPY, MICROSCOPE, WITH BIOPSY (WRVU 3.55) performed by Zafar Madera MD at [facility] MAIN OR ??? PRO LARYNGOSCOPY, DIRECT, DX, OP MICROSCOP N/A 07/16/2017 LARYNGOSCOPY, WITH MICROSCOPE (WRVU 2.57) performed by Sriram Contreras MD at [facility] OR ??? PRO PART EXC TONGUE, UNILAT RAD NECK Right 07/13/2017 @GLOSSECTOMY, PARTIAL,WITH UNILATERAL RADICAL NECK DISSECTION (WRVU 30.14) performed by Sriram Contreras MD at [facility] ??? PRO PARTIAL REMOVAL OF PHARYNX N/A 07/13/2017 PHARYNGECTOMY, LIMITED (WRVU 19.13) performed by Sriram Contreras MD at [facility] ??? PRO UNLISTED PROCEDURE LARYNX N/A 07/13/2017 LARYNGOSCOPY, MICRO, LASER EXCISION (WRVU 12.14) performed by Sriram Contreras MD at [facility] ??? QUADRACEPS TENDON REPAIR Right 04/2016 [facility] ??? TONSILLECTOMY FAMILY HISTORY No family history on file. No family history of VTE SOCIAL HISTORY Social History Social History ??? Marital status: Spouse name: Briana ??? Number of children: 4 ??? 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 Smoking status: Former Smoker Packs/day: 1.00 Years: 27.00 Types: Cigarettes, Pipe Start date: 1968 Quit date: 1995 ??? Smokeless tobacco: Never Used Comment: quit cigarettes in 1995 - but smoked occasional pipe ??? Alcohol use Yes Comment: 1-2 drinks a week - liquor ??? Drug use: No Comment: hasn't smoked marijuana in 25 years - everyday ??? Sexual activity: Yes Other Topics Concern ??? 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 He is to Briana for 40 yrs. 4 children - All live in different states - One Kathleen Enjoys raising Beef Cattle and doing Civil War and Living History and shoot Black powder/Antique firearms. He enjoys builiding Firearms/Blacksmithing - [place], [place], etc. PHYSICAL EXAMINATION Most Recent Vitals: 07/26/17 0731 BP: 148/88 Pulse: Resp: 18 Temp: 36.6 ??C (97.9 ??F) SpO2: 94% Gen: NAD, A&Ox3 HEENT: sclera non-icteric, PERRL, EOMI, OP clear, MMM Neck: no cervical LAD, Full range of motion, no bruits, no thyromegaly CV: RRR, no m/r/g, nl s1, s2 Pulm: CTA b/l, breathing non-labored Abd: soft, NT, ND, +nabs Ext: no edema, no clubbing, no cyanosis. DP pulses equal and full b/l Chest/Back - no spinal tenderness, no CVAT Neuro: no focal deficits grossly noted. Orientation - person, place and time. Cranial nerves intact, Strength LABORATORY EVALUATION -Reviewed recent labs. Significant for: WBC 12.4, othewwise CBC WNL BMP WNL LFTs WNL RADIOGRAPHIC EVALUATION CT 07/20/17 Pulmonary parenchyma: Moderate bibasilar airspace process and [...] structures: Stable severe degenerative changes thoracolumbar spine. PATHOLOGY EVALUATION See table above ASSESSMENT: 66 year old man with his 2nd PE both in the setting of malignancy. The second VTE occurred he was off of apixaban and ~POD#7 from his major surgery (neck dissection). He was on enoxaparin 40mg at that time, but given his weight 142kg could be that the 1x daily dosing was insufficient. He is tolerating the heparin well at present with no issues bleeding. We recommend when felt appropriate from a surgical perspective to stop heparin and transition to enoxaparin 100mg BID. We should continue this for at least 3-6 months and possibly longer depending on the status of his malignancy (we recommend referral to hemostasis and thrombosis clinic here). The patient voiced understanding of our impression and was agreeable to receiving subcutaneous injection RECOMMENDATIONS: -please obtain venous duplex to evaluate for DVT -at least 3-6 month of anticoagulation with decision on timing when to stop versus definite (ultimately status of his malignancy will affect timing) -Anti Xa level (heparin test not the factor assay). Obtain 4 hours after enoxaparin dose (can be after 1st dose) -Stop Heparin and start enoxaparin 100mg BID -have patient followup with Hemostasis and thrombosis clinic here in ~3months from Discharge. Hematology will sign off after started on enoxaparin. Please contact prior to discharge if difficulties placing/obtaining referral to hemostasis and thrombosis clinic Felice Harvey MD Pager [phone] Heme-Onc Fellow ?? HEMATOLOGY STAFF ADDENDUM I have independently interviewed and examined this patient and have personally reviewed the relevant clinical, laboratory and radiological data with Dr. Viveros Hematology/Oncology Fellow. Please refer to the comprehensive consultation note above, with which I concur, for complete details of our enc ounter with this patient. I have reviewed and endorse the recommendations as outlined and have madeany additions/corrections below. Mr. Laws was diagnosed with his first VTE (right lower lobe pulmonary embolism) in Mar, 2017 when he was also noted to have right tonsillar mass which was later found to be SCC of tonsil on further biopsy. He was started on apixaban for anticoagulation and he was consulted by Dr. Deleon as an O.P in April,. Apixaban was held 72 hours prior to the planned H&N surgery. He underwent transoral laser microsurgery resection of right base of tongue cancer and right neck dissection on 07/13/2017. Post operatively, he was on enoxaparin 40mg SQ once daily from 07/13/17 until 07/19/17. He had CTA on 07/20 for evaluation of worsening resp status which revealed multiple long segment pulmonary emboli within the right upper lobe pulmonary artery branches and additional smaller PE in the right lower lobe segmental pulmonary arteries and subsequently, he was started on heparin gtt which he is tolerating well with no bleeding complications. He is now pod #13. His most recent BMI/Weight: Weight (kg) 142.5 kg Weight (lb) 314 lb 2.5 oz Height 191.8 cm BMI (Calculated) 38.73 Exam: Negative for any UE or LE swelling. Radiology : I personally reviewed the CT images from 07/20 and also from March showing PE A/P: 66 y/o M with SCC of tongue T2N0M0, prior h/o 1st PE diagnosed in Mar, 2017, treated with apixaban,now sustained 2nd PE on POD# 7 s/p partial glossectomy with radical neck dissection on 07/13. Both his VTE episodes occurred in the setting of active malignancy and his 2nd PE also has other major transient risk factors: surgery, hospitalization with ICU stay. He sustained 2nd PE even though he was on pharmacological prophylaxis with enoxparin 40mg once daily post operatively. But, I suspect, this standard dose of lovenox was inadequate for this pt who weighs 140kg and has multiple provoking risk factors for VTE: active malignancy, surgery, immobilization with intubation in the ICU etc. So, this is not failure of enoxaparin. RECOMMENDATIONS: # Recommend bilateral lower extremity venous duplex to evaluate for source of pulmonary emboli # We favor enoxaparin as the choice of anticoagulant over apixaban as (1) ISTH suggests avoding theuse of DOACs in pts with weight >120kg or BMI >40 due to lack of much clinical data in this group of patients (2) enoxaparin is still the recommended anticoagulant of choice in patients with active malignancy. # We recommend enoxaparin 100mg SQ bid rather than the calculated dose of 1mg/kg as that high dose will increase his risk of bleeding. We will check Anti Xa level 4 hours after the enoxaparin dose toensure adequate anticoagulation (the goal Anti Xa level with bid dosing of lovenox is 0.6-1.0) # We recommend minimum 3-6 months of anticoagulation for his PE. The duration of anticoagulation will depend on the status of his malignancy and he will need to continue anticoagulation as long as hehas active malignancy. # I recommend f/up in Hemostasis and thrombosis clinic as O.P. He already has an appointment with Dr. Deleon on 08/30. Deanna Menjivar MD Hematology Staff physician, Pager: [phone] 07/26/17 * Plan of Care - Sriram Thompson, ASSOCIATE PROFESSOR OF GEOGRAPHY - 07/26/2017 9:33 AM EDT Problem: Patient Care Overview Goal: Plan of Care Review Outcome: Ongoing (Interventions Implemented as Appropriate) 07/26/17930 Coping/Psychosocial Plan Of Care Reviewed With patient SPEECH-LANGUAGE PATHOLOGY Swallow Evaluation ASSESSMENT: Pt presents with mild decreases in oral manipulation of purees and thin liquids. Pt exhibits inconsistent signs of aspiration with both thin liquids and purees. Cough is noted at baseline for secretions management, however frequency of coughing increases substantially with intake of purees and thinliquids consistent with aspiration. Although cough is at random moments and not directly timed withswallow, coughing frequency decreases when feeding is stopped. Below recommendations are made for now. For further details, please refer to the corresponding flowsheet documentation. RECOMMENDATIONS: ?? NPO ?? Continue dobhoff T.F. For now. ?? HOB > 30 degrees at all times. Sriram Thompson MS [facility]-ASSOCIATE PROFESSOR OF GEOGRAPHY Speech-Language Pathologist Rehabilitation Medicine Pager - [phone] Problem: Acute Rehab Services Goal & Intervention Plan Goal: Dysphagia Goal Stand Alone Therapy Goal Outcome: Ongoing (Interventions Implemented as Appropriate) 07/26/17 09 Dysphagia Goal Dysphagia Goal, Date Established 07/26/17 Dysphagia Goal, Time to Achieve by discharge Dysphagia Goal, Activity Type Pt will tolerate least restrictive diet without signs of aspiraiton. * Plan of Care - Kayley Olivo RN - 07/26/2017 8:43 AM EDT Problem: Patient Care Overview Goal: Plan of Care Review Outcome: Ongoing (Interventions Implemented as Appropriate) 07/26/17835 Coping/Psychosocial Plan Of Care Reviewed With patient Plan of Care Review Progress progress toward functional goals is gradual OUTCOME EVALUATION NOTE: OUTCOME SUMMARY: Patient at beginning of shift had flexiseal tube in rectum for liquid stool. He pulled out the tubebut did not have any further incontinence episodes overnight. He continues with iqbal catheter for urine output. He continues to be AxOx4 although did have intermittent brief episodes overnight wherehe forgot he was in the hospital or that he could not yet eat. He independently repositions in bed all night. Repositioning assistance provided also as patient is large/tall man and slides down into the bed requiring boosting up with assistance. He may benefit from trapeze and larger bed. Physical therapy required for patient as he has not been out of bed in a couple of weeks. He continues withIV antibiotics and continuous tube feeding diet to NG tube. No nausea or pain this shift. Mouth care provided in addition to skin care. PLAN MOVING FORWARD: Continue tube feedings. Work with PT/OT to get out of bed. INDIVIDUALIZED FALL PREVENTION INTERVENTIONS: Patient-specific fall risk factors per assessment: [current deficits]: Extended and complicated hospital course; polypharmacy; comorbidity; underlying cancer diagnosis and resulting weakness and fatigue; post-operative status Assistance [level of assistance required for transfers and ambulation]: total care, can move independently to shift positions in the bed Supervision [direct monitoring required during toileting and ADLs]: Eyes-on, hands-on Surveillance [continuous indirect monitoring]: hourly rounding, room near unit station, bed alarm set, bed in lowest position, call-srinivasan within reach, door remains open, family frequently at the bedside Patient-specific fall prevention interventions for sensory deficits provided, if applicable: [X] N/A CPG GOAL OUTCOME EVALUATION: Goal: Individualization & Mutuality Outcome: Ongoing (Interventions Implemented as Appropriate) 07/26/17835 Individualization Patient Specific Preferences I want to get up. I need to get up Can I have pie? I have not eatenin weeks Goal: Fall Prevention-Safe Patient Handling Outcome: Ongoing (Interventions Implemented as Appropriate) 09/18/17 0836 Restraint Interventions Safety Promotion/Fall Prevention fall prevention program maintained;activity supervised;safety round/check completed Positioning Body Position with 2-person assist Daily Care Interventions Self-Care Promotion BADL personal objects within reach Bradford Fall Risk History of Falling 0 Secondary Diagnosis 15 Ambulatory Aids 0 Intravenous Therapy/Heparin/Saline Lock 20 Gait/Transferring 0 Mental Status 15 Score 50 OTHER Bradford Fall Risk High Goal: Infection Control Outcome: Ongoing (Interventions Implemented as Appropriate) 07/26/17 0836 Safety Interventions Isolation Precautions standard precautions maintained Infection Prevention environmental surveillance performed;rest/sleep promoted;single patient room provided Coping Strategies Supportive Measures active listening utilized * Plan of Care - Lakeshia Hernandez RN - 07/25/2017 10:07 PM EDT Problem: Skin Integrity Impairment, Risk/Actual (Adult) Goal: Identify Related Risk Factors and Signs and Symptoms Related risk factors and signs and symptoms are identified upon initiation of Human Response Clinical Practice Guideline (CPG) Outcome: Ongoing (Interventions Implemented as Appropriate) 07/23/17 1648 Skin Integrity Impairment, Risk/Actual Skin Integrity Impairment, Risk/Actual: Related Risk Factors cognitive impairment;edema;immobility;infection/disease process;sensory impairment;skin disorders;surgery/procedure Signs and Symptoms (Skin Integrity Impairment) edema Goal: Skin Integrity/Wound Healing Patient will demonstrate the desired outcomes by discharge/transition of care. Outcome: Ongoing (Interventions Implemented as Appropriate) 07/23/17 1648 Skin Integrity Impairment, Risk/Actual (Adult) Skin Integrity/Wound Healing making progress toward outcome Problem: Pain, Acute (Adult) Goal: Identify Related Risk Factors and Signs and Symptoms Related risk factors and signs and symptoms are identified upon initiation of Human Response Clinical Practice Guideline (CPG) Outcome: Ongoing (Interventions Implemented as Appropriate) 07/23/17 1648 Pain, Acute Related Risk Factors (Acute Pain) communication barrier;disease process;surgery Goal: Acceptable Pain Control/Comfort Level Patient will demonstrate the desired outcomes by discharge/transition of care. Outcome: Ongoing (Interventions Implemented as Appropriate) 07/24/17 0444 Pain, Acute (Adult) Acceptable Pain Control/Comfort Level making progress toward outcome Problem: Patient Care Overview Goal: Plan of Care Review Outcome: Ongoing (Interventions Implemented as Appropriate) 07/24/17 1845 07/25/17 0800 Coping/Psychosocial Plan Of Care Reviewed With -- patient Plan of Care Review Progress progress toward functional goals as expected -- OUTCOME EVALUATION NOTE: OUTCOME SUMMARY: Patient Mr. Jose Laws was transferred from the ICU to [facility] at approximately 1430 on 07/25/17. At the time of transfer, he was awake and oriented times 4 to all orientation questions. However, he did have some time periods of slight confusion, when he forgot he had not been out of bed in two weeks, etc. However, he always knew who he was, when it was, and where he was. VSS. Patientable to follow commands and move independently in the bed mostly. Skin is intact, full assessment performed. Iqbal catheter patent and in place; flexiseal patent and in place. IV lines remain patent,clean, dry, and intact. PLAN MOVING FORWARD: Continue tube feedings Work with PT/OT Continue wound care to incision INDIVIDUALIZED FALL PREVENTION INTERVENTIONS: Patient-specific fall risk factors per assessment: [current deficits]: Extended and complicated hospital course; polypharmacy; comorbidity; underlying cancer diagnosis and resulting weakness and fatigue; post-operative status Assistance [level of assistance required for transfers and ambulation]: total care, can move independently to shift positions in the bed Supervision [direct monitoring required during toileting and ADLs]: Eyes-on, hands-on Surveillance [continuous indirect monitoring]: hourly rounding, room near unit station, bed alarm set, bed in lowest position, call-srinivasan within reach, door remains open, family frequently at the bedside Patient-specific fall prevention interventions for sensory deficits provided, if applicable: [X] N/A CPG GOAL OUTCOME EVALUATION: Ongoing Goal: Fall Prevention-Safe Patient Handling Outcome: Ongoing (Interventions Implemented as Appropriate) 07/25/17 0800 07/25/17 1400 07/25/17 1500 Bradford Fall Risk History of Falling 0 -- -- Secondary Diagnosis 15 -- -- Ambulatory Aids 0 -- -- Intravenous Therapy/Heparin/Saline Lock 20 -- -- Gait/Transferring 0 -- -- Mental Status 15 -- -- Score 50 -- -- OTHER Bradford Fall Risk High -- -- Restraint Interventions Safety Promotion/Fall Prevention -- safety round/check completed;activity supervised -- Positioning Body Position -- -- weight shift assistance provided Goal: Infection Control Outcome: Ongoing (Interventions Implemented as Appropriate) 07/25/17 0800 07/25/17 1400 Safety Interventions Isolation Precautions -- standard precautions maintained Infection Prevention -- single patient room provided;rest/sleep promoted;environmental surveillanceperformed;equipment surfaces disinfected Coping Strategies Supportive Measures active listening utilized -- Goal: Interdisciplinary Rounds/Family Conf Outcome: Ongoing (Interventions Implemented as Appropriate) 07/19/17 1558 Interdisciplinary Rounds/Family Conf Participants patient;physician;respiratory therapy;nursing * Plan of Care - Pao Morales RN - 07/25/2017 5:21 AM EDT Problem: Pain, Acute (Adult) Goal: Identify Related Risk Factors and Signs and Symptoms Related risk factors and signs and symptoms are identified upon initiation of Human Response Clinical Practice Guideline (CPG) Outcome: Ongoing (Interventions Implemented as Appropriate) OUTCOME EVALUATION NOTE: OUTCOME SUMMARY: Pt confused and frustrated at beginning of shift but became a/o x4 around 0400. Pt had some troublegetting comfortable overnight. Hydralazine given x2 for SBP >160 with little effect. Heparin gtttitrated per order. PLAN MOVING FORWARD: Transfer to [facility] INDIVIDUALIZED FALL PREVENTION INTERVENTIONS: Patient-specific fall risk factors per assessment: [current deficits]: Prolonged bedrest Assistance [level of assistance required for transfers and ambulation]: 2A Supervision [direct monitoring required during toileting and ADLs]: Near nurse's station Surveillance [continuous indirect monitoring]: Clement's monitor Patient-specific fall prevention interventions for sensory deficits provided, if applicable: [X] Yes CPG GOAL OUTCOME EVALUATION: Goal: Acceptable Pain Control/Comfort Level Patient will demonstrate the desired outcomes by discharge/transition of care. Outcome: Ongoing (Interventions Implemented as Appropriate) 07/24/17 0444 Pain, Acute (Adult) Acceptable Pain Control/Comfort Level making progress toward outcome Problem: Patient Care Overview Goal: Plan of Care Review Outcome: Ongoing (Interventions Implemented as Appropriate) 07/24/17 1845 07/24/171999 Coping/Psychosocial Plan Of Care Reviewed With -- patient Plan of Care Review Progress progress toward functional goals as expected -- Goal: Fall Prevention-Safe Patient Handling Outcome: Ongoing (Interventions Implemented as Appropriate) 07/24/17 1800 07/24/17199907/25/17 0400 Bradford Fall Risk History of Falling -- 0 -- Secondary Diagnosis -- 15 -- Ambulatory Aids -- 0 -- Intravenous Therapy/Heparin/Saline Lock -- 20 -- Gait/Transferring -- 0 -- Mental Status -- 15 -- Score -- 50 -- OTHER Bradford Fall Risk -- High -- Restraint Interventions Safety Promotion/Fall Prevention -- -- safety round/check completed Positioning Body Position neutral body alignment;with 2-person assist -- -- Goal: Infection Control Outcome: Ongoing (Interventions Implemented as Appropriate) 07/24/171999 Safety Interventions Isolation Precautions standard precautions maintained Infection Prevention environmental surveillance performed;equipment surfaces disinfected;personal protective equipment utilized;rest/sleep promoted;single patient room provided Coping Strategies Supportive Measures active listening utilized;decision-making supported;goal setting facilitated;positive reinforcement provided;problem solving facilitated;self-care encouraged;self-responsibility promoted;verbalization of feelings encouraged Goal: Discharge Needs Assessment Outcome: Ongoing (Interventions Implemented as Appropriate) 07/13/17 0653 Current Health Anticipated Changes Related to Illness none Living Environment Transportation Available family or friend will provide Goal: Interdisciplinary Rounds/Family Conf Outcome: Ongoing (Interventions Implemented as Appropriate) 07/19/17 1558 Interdisciplinary Rounds/Family Conf Participants patient;physician;respiratory therapy;nursing Problem: Confusion, Acute (Adult) Goal: Cognitive/Functional Impairments Minimized Patient will demonstrate the desired outcomes by discharge/transition of care. Outcome: Outcome (s) achieved Date Met: 07/25/17 07/25/17516 Confusion, Acute (Adult) Cognitive/Functional Impairments Minimized achieves outcome Goal: Safety Patient will demonstrate the desired outcomes by discharge/transition of care. Outcome: Outcome (s) achieved Date Met: 07/25/17 07/25/17 05 Confusion, Acute (Adult) Safety achieves outcome * Plan of Care - Arely Shaw RN - 07/24/2017 6:47 PM EDT Problem: Patient Care Overview Goal: Plan of Care Review Outcome: Ongoing (Interventions Implemented as Appropriate) 07/24/17 1845 Coping/Psychosocial Plan Of Care Reviewed With patient Plan of Care Review Progress progress toward functional goals as expected OUTCOME EVALUATION NOTE: OUTCOME SUMMARY: Extubated to 2L NC without issue, no desats noted; calm and following commands, voice hoarse. Hemodynamically stable. TF restarted this afternoon. Good UOP via Iqbal cath. Afebrile, cont on zosyn as ordered. PLAN MOVING FORWARD: Transfer to lower level of care * Plan of Care - Pao Morales RN - 07/24/2017 4:47 AM EDT Problem: Pain, Acute (Adult) Goal: Identify Related Risk Factors and Signs and Symptoms Related risk factors and signs and symptoms are identified upon initiation of Human Response Clinical Practice Guideline (CPG) Outcome: Ongoing (Interventions Implemented as Appropriate) 07/23/17 1648 Pain, Acute Related Risk Factors (Acute Pain) communication barrier;disease process;surgery OUTCOME EVALUATION NOTE: OUTCOME SUMMARY: Pt resting comfortably throughout the night. Pt is opening eyes spontaneously and able to follow commands. Fentanyl gtt d/c'd for extubation this am. PLAN MOVING FORWARD: Extubate, transfer to [facility] when able INDIVIDUALIZED FALL PREVENTION INTERVENTIONS: Patient-specific fall risk factors per assessment: [current deficits]: Sedation Assistance [level of assistance required for transfers and ambulation]: Bedrest Supervision [direct monitoring required during toileting and ADLs]: Near nurse's station Surveillance [continuous indirect monitoring]: Clement's monitor Patient-specific fall prevention interventions for sensory deficits provided, if applicable: [X] Yes CPG GOAL OUTCOME EVALUATION: Goal: Acceptable Pain Control/Comfort Level Patient will demonstrate the desired outcomes by discharge/transition of care. Outcome: Ongoing (Interventions Implemented as Appropriate) 07/24/17 0444 Pain, Acute (Adult) Acceptable Pain Control/Comfort Level making progress toward outcome Problem: Patient Care Overview Goal: Plan of Care Review Outcome: Ongoing (Interventions Implemented as Appropriate) 07/23/17 1649 07/23/171999 Coping/Psychosocial Plan Of Care Reviewed With -- patient Plan of Care Review Progress improving -- Goal: Fall Prevention-Safe Patient Handling Outcome: Ongoing (Interventions Implemented as Appropriate) 07/23/17 0800 07/23/17199907/24/17 0400 Bradford Fall Risk History of Falling -- 0 -- Secondary Diagnosis -- 15 -- Ambulatory Aids -- 0 -- Intravenous Therapy/Heparin/Saline Lock -- 20 -- Gait/Transferring -- 0 -- Mental Status -- 15 -- Score -- 50 -- OTHER Bradford Fall Risk -- High -- Restraint Interventions Safety Promotion/Fall Prevention -- -- safety round/check completed Positioning Body Position neutral body alignment -- -- Goal: Infection Control Outcome: Ongoing (Interventions Implemented as Appropriate) 07/23/171999 Safety Interventions Isolation Precautions standard precautions maintained Infection Prevention environmental surveillance performed;equipment surfaces disinfected;personal protective equipment utilized;rest/sleep promoted;single patient room provided Coping Strategies Supportive Measures active listening utilized;decision-making supported;goal setting facilitated;positive reinforcement provided;problem solving facilitated;self-care encouraged;self-responsibility promoted;verbalization of feelings encouraged Goal: Discharge Needs Assessment Outcome: Ongoing (Interventions Implemented as Appropriate) 07/13/17 0653 Current Health Anticipated Changes Related to Illness none Living Environment Transportation Available family or friend will provide Goal: Interdisciplinary Rounds/Family Conf Outcome: Ongoing (Interventions Implemented as Appropriate) 07/19/17 1558 Interdisciplinary Rounds/Family Conf Participants patient;physician;respiratory therapy;nursing Problem: Confusion, Acute (Adult) Goal: Cognitive/Functional Impairments Minimized Patient will demonstrate the desired outcomes by discharge/transition of care. Outcome: Ongoing (Interventions Implemented as Appropriate) 07/24/17 0444 Confusion, Acute (Adult) Cognitive/Functional Impairments Minimized making progress toward outcome Goal: Safety Patient will demonstrate the desired outcomes by discharge/transition of care. Outcome: Ongoing (Interventions Implemented as Appropriate) 07/24/17 0444 Confusion, Acute (Adult) Safety making progress toward outcome * Plan of Care - Noris Hernández RN - 07/23/2017 4:53 PM EDT Problem: Patient Care Overview Goal: Plan of Care Review 07/23/17 9120 Coping/Psychosocial Plan Of Care Reviewed With patient Plan of Care Review Progress improving OUTCOME EVALUATION NOTE: OUTCOME SUMMARY: Pt started shift on 50 mcg/kg/min propofol and was weaned down to 10 of propofol. Throughout shift he was not opening eyes pr following commands. Around 1700 he began following commands but was still lethargic and would only open eyes for <5 seconds. Tube feedings held starting around 0900 for possible extubation, however mental status has not allowed for extubation at this time. Does not appear to be in any pain. Fentanyl drip from 50 mcg/hr to 25 mcg/hr. PLAN MOVING FORWARD: Wean sedation, possible extubation INDIVIDUALIZED FALL PREVENTION INTERVENTIONS: Patient-specific fall risk factors per assessment: [current deficits]: Prolonged immobility; lines/tubes Assistance [level of assistance required for transfers and ambulation]: Bedrest Supervision [direct monitoring required during toileting and ADLs]: 2 person assist Surveillance [continuous indirect monitoring]: Daryl ICU Monitor Patient-specific fall prevention interventions for sensory deficits provided, if applicable: [X] Yes CPG GOAL OUTCOME EVALUATION: Goal: Fall Prevention-Safe Patient Handling 07/23/17 0807/23/17 1600 Bradford Fall Risk History of Falling 0 -- Secondary Diagnosis 15 -- Ambulatory Aids 0 -- Intravenous Therapy/Heparin/Saline Lock 20 -- Gait/Transferring 0 -- Mental Status 15 -- Score 50 -- OTHER Bradford Fall Risk High -- Restraint Interventions Safety Promotion/Fall Prevention -- fall prevention program maintained;safety round/check completed Positioning Body Position neutral body alignment -- Goal: Infection Control 07/23/17 0807/23/17 1600 Safety Interventions Isolation Precautions -- standard precautions maintained Infection Prevention -- environmental surveillance performed;personal protective equipment utilized;rest/sleep promoted;single patient room provided;visitors restricted/screened Coping Strategies Supportive Measures relaxation techniques promoted -- * Plan of Care - Pao Morales RN - 07/23/2017 5:48 AM EDT Problem: Skin Integrity Impairment, Risk/Actual (Adult) Goal: Identify Related Risk Factors and Signs and Symptoms Related risk factors and signs and symptoms are identified upon initiation of Human Response Clinical Practice Guideline (CPG) Outcome: Ongoing (Interventions Implemented as Appropriate) 07/15/17 9724 Skin Integrity Impairment, Risk/Actual Skin Integrity Impairment, Risk/Actual: Related Risk Factors edema;fluid/nutrition status;immobility;environmental exposure;age extremes;mechanical factors;medication effects;moisture;surgery/procedur e;treatment effects Signs and Symptoms (Skin Integrity Impairment) edema OUTCOME EVALUATION NOTE: OUTCOME SUMMARY: Pt resting comfortably throughout the night, remains sedated for comfort with plan to extubate in the am. Minimal secretions from ETT. Heparin gtt titrated per order. Will continue to monitor. PLAN MOVING FORWARD: Extubate this am, transfer to [facility] when able INDIVIDUALIZED FALL PREVENTION INTERVENTIONS: Patient-specific fall risk factors per assessment: [current deficits]: Sedation, generalized weakness Assistance [level of assistance required for transfers and ambulation]: bedrest Supervision [direct monitoring required during toileting and ADLs]: Near nurse's station Surveillance [continuous indirect monitoring]: Clement's monitor Patient-specific fall prevention interventions for sensory deficits provided, if applicable: [X] Yes CPG GOAL OUTCOME EVALUATION: Goal: Skin Integrity/Wound Healing Patient will demonstrate the desired outcomes by discharge/transition of care. Outcome: Ongoing (Interventions Implemented as Appropriate) 07/23/17 0543 Skin Integrity Impairment, Risk/Actual (Adult) Skin Integrity/Wound Healing making progress toward outcome Problem: Pain, Acute (Adult) Goal: Identify Related Risk Factors and Signs and Symptoms Related risk factors and signs and symptoms are identified upon initiation of Human Response Clinical Practice Guideline (CPG) Outcome: Ongoing (Interventions Implemented as Appropriate) 07/15/17 1844 Pain, Acute Related Risk Factors (Acute Pain) communication barrier;procedure/treatment;surgery Goal: Acceptable Pain Control/Comfort Level Patient will demonstrate the desired outcomes by discharge/transition of care. Outcome: Ongoing (Interventions Implemented as Appropriate) 07/23/17 0543 Pain, Acute (Adult) Acceptable Pain Control/Comfort Level making progress toward outcome Problem: Patient Care Overview Goal: Plan of Care Review Outcome: Ongoing (Interventions Implemented as Appropriate) 07/21/17 0346 07/22/171999 Coping/Psychosocial Plan Of Care Reviewed With -- patient Plan of Care Review Progress progress towards functional goals is fair -- Goal: Fall Prevention-Safe Patient Handling Outcome: Ongoing (Interventions Implemented as Appropriate) 07/22/17 1800 07/22/17199907/23/17 0400 Bradford Fall Risk History of Falling -- 0 -- Secondary Diagnosis -- 15 -- Ambulatory Aids -- 0 -- Intravenous Therapy/Heparin/Saline Lock -- 20 -- Gait/Transferring -- 0 -- Mental Status -- 15 -- Score -- 50 -- OTHER Bradford Fall Risk -- High -- Restraint Interventions Safety Promotion/Fall Prevention -- -- safety round/check completed Positioning Body Position foot of bed elevated -- -- Goal: Infection Control Outcome: Ongoing (Interventions Implemented as Appropriate) 07/22/171999 Safety Interventions Isolation Precautions standard precautions maintained Infection Prevention environmental surveillance performed;equipment surfaces disinfected;personal protective equipment utilized;rest/sleep promoted;single patient room provided Coping Strategies Supportive Measures active listening utilized;decision-making supported;goal setting facilitated;positive reinforcement provided;problem solving facilitated;self-care encouraged;self-responsibility promoted;verbalization of feelings encouraged Goal: Discharge Needs Assessment Outcome: Ongoing (Interventions Implemented as Appropriate) 07/13/17 0653 Current Health Anticipated Changes Related to Illness none Living Environment Transportation Available family or friend will provide Goal: Interdisciplinary Rounds/Family Conf Outcome: Ongoing (Interventions Implemented as Appropriate) 07/19/17 1558 Interdisciplinary Rounds/Family Conf Participants patient;physician;respiratory therapy;nursing Problem: Confusion, Acute (Adult) Goal: Cognitive/Functional Impairments Minimized Patient will demonstrate the desired outcomes by discharge/transition of care. Outcome: Ongoing (Interventions Implemented as Appropriate) 07/23/17 0543 Confusion, Acute (Adult) Cognitive/Functional Impairments Minimized making progress toward outcome Goal: Safety Patient will demonstrate the desired outcomes by discharge/transition of care. Outcome: Ongoing (Interventions Implemented as Appropriate) 07/23/17 0543 Confusion, Acute (Adult) Safety making progress toward outcome * Plan of Care - Nadeen Porter RN - 07/22/2017 6:40 AM EDT Problem: Patient Care Overview Goal: Plan of Care Review Outcome: Ongoing (Interventions Implemented as Appropriate) 07/21/17 0346 07/21/171999 Coping/Psychosocial Plan Of Care Reviewed With -- patient Plan of Care Review Progress progress towards functional goals is fair -- OUTCOME EVALUATION NOTE: OUTCOME SUMMARY: Pt had increasing PVC, with periods of trigemeny, pt hypotensive with these epsiodes with MAPs in the high 50s. EKG done, 500c bolus given. Mag replaced Heparin therapeutic Pasted SBT. A-line placed PLAN MOVING FORWARD: abx extubate INDIVIDUALIZED FALL PREVENTION INTERVENTIONS: Patient-specific fall risk factors per assessment: [current deficits]: sedated Assistance [level of assistance required for transfers and ambulation]: q2hr turns Supervision [direct monitoring required during toileting and ADLs]: Hands on Surveillance [continuous indirect monitoring]: hourly rounding family at bedside room near nurses station Patient-specific fall prevention interventions for sensory deficits provided, if applicable:yes CPG GOAL OUTCOME EVALUATION: * Plan of Care - Shannon Toribio RN - 07/21/2017 3:46 AM EDT Problem: Patient Care Overview Goal: Plan of Care Review 07/21/17 0346 Coping/Psychosocial Plan Of Care Reviewed With patient Plan of Care Review Progress progress towards functional goals is fair Comments: OUTCOME EVALUATION NOTE: OUTCOME SUMMARY: Patient withdraws from pain and opens eyes spontaneously when off sedation. Pt requires frequent inline and oral suctioning for secretions. Fentanyl boluses administered with turns. Heparin gtt titrated. Potassium replaced. afib on telemetry. Pt had a large liquid bowel movement. Incision is WDL. PLAN MOVING FORWARD: Wean off vent Continue to monitor INDIVIDUALIZED FALL PREVENTION INTERVENTIONS: Patient-specific fall risk factors per assessment: [current deficits]: Situation, hospital environment Assistance [level of assistance required for transfers and ambulation]: Total Supervision [direct monitoring required during toileting and ADLs]: Total Surveillance [continuous indirect monitoring]: Telemetry, pulse ox, purposeful rounding Patient-specific fall prevention interventions for sensory deficits provided, if applicable: No CPG GOAL OUTCOME EVALUATION: Ongoing * Plan of Care - Danielle Bueno RN - 07/20/2017 3:55 PM EDT Problem: Patient Care Overview Goal: Plan of Care Review Outcome: Ongoing (Interventions Implemented as Appropriate) 07/20/17 0408 07/20/17 0800 Coping/Psychosocial Plan Of Care Reviewed With -- patient Plan of Care Review Progress progress towards functional goals is fair -- OUTCOME EVALUATION NOTE: OUTCOME SUMMARY: Pt remains intubated on PS, titrated for oxygenation. K+ replaced per protocol. Sputum sample sent.CT done this afternoon. Propofol and fentanyl titrated for comfort. Continues in afib, HR and BP stable. Qtc increasing, mag and BMP sent. PLAN MOVING FORWARD: Continue to titrate gtt for comfort INDIVIDUALIZED FALL PREVENTION INTERVENTIONS: Patient-specific fall risk factors per assessment: [current deficits]: S/p surgery, intubated Assistance [level of assistance required for transfers and ambulation]: 2 assist Supervision [direct monitoring required during toileting and ADLs]: Hands on Surveillance [continuous indirect monitoring]: Alarms on and audible, room near nurses station, purposeful rounding Patient-specific fall prevention interventions for sensory deficits provided, if applicable: [X] Yes CPG GOAL OUTCOME EVALUATION: * Plan of Care - Danielle Bueno RN - 07/20/2017 3:49 PM EDT Problem: Patient Care Overview Goal: Fall Prevention-Safe Patient Handling 07/20/17 0800 07/20/17 1400 Bradford Fall Risk History of Falling 0 -- Secondary Diagnosis 15 -- Ambulatory Aids 0 -- Intravenous Therapy/Heparin/Saline Lock 20 -- Gait/Transferring 0 -- Mental Status 15 -- Score 50 -- OTHER Bradford Fall Risk High -- Restraint Interventions Safety Promotion/Fall Prevention -- safety round/check completed;fall prevention program maintained Positioning Body Position -- upper extremity elevated, left;upper extremity elevated, right;weight shift assistance provided * Plan of Care - Shannon Toribio RN - 07/20/2017 4:08 AM EDT Problem: Skin Integrity Impairment, Risk/Actual (Adult) Goal: Skin Integrity/Wound Healing Patient will demonstrate the desired outcomes by discharge/transition of care. 07/20/17 0408 Skin Integrity Impairment, Risk/Actual (Adult) Skin Integrity/Wound Healing making progress toward outcome Problem: Patient Care Overview Goal: Plan of Care Review 07/20/17 0408 Coping/Psychosocial Plan Of Care Reviewed With patient Plan of Care Review Progress progress towards functional goals is fair Comments: OUTCOME EVALUATION NOTE: OUTCOME SUMMARY: Pt is sedated and not opening eyes spontaneously but withdraws to pain. Patient has a frequent cough and requires frequent in line and oral suctioning which produces thick pink/hdez sputum. Incision is WDL. JYOTHI drains putting out scant amount of fluid. Patient had several incontinent episodes of stool. Iqbal draining yellow urine in adequate amounts however drainage at times was due to positional changes (at one point balloon had to be deflated to allow for catheter repositioning) which team is aware. Rate controlled afib on telemetry with frequent PVCs. Dilt gtt maintained at 5. Potassium replaced overnight. PLAN MOVING FORWARD: Continue to titrate sedation Continue to maintain adequate perfusion Wean off vent when stable INDIVIDUALIZED FALL PREVENTION INTERVENTIONS: Patient-specific fall risk factors per assessment: [current deficits]: Situation, hospital environment Assistance [level of assistance required for transfers and ambulation]: Total Supervision [direct monitoring required during toileting and ADLs]: Total Surveillance [continuous indirect monitoring]: Telemetry, pulse ox, purposeful rounding Patient-specific fall prevention interventions for sensory deficits provided, if applicable: Room near nurse CPG GOAL OUTCOME EVALUATION: Ongoing * Plan of Care - Danielle Bueno RN - 07/19/2017 4:05 PM EDT Problem: Patient Care Overview Goal: Plan of Care Review Outcome: Ongoing (Interventions Implemented as Appropriate) 07/19/17 0523 07/19/17 0800 Coping/Psychosocial Plan Of Care Reviewed With -- patient Plan of Care Review Progress progress towards functional goals is fair -- OUTCOME EVALUATION NOTE: OUTCOME SUMMARY: Pt is disoriented time, garbled speech, lethargic. BP stable. Pt coughing frequently, but able to clear secretions independently. Oral suctioning PRN, but holding off on NT suctioning per ENT. TF restarted. Multiple episodes of fecal incontinence. Denies pain. One episode of vent trigem, critical care team aware. PO2 59 at noon, aware. High flow nasal canula switch to hi flow mask and titratedfrom 45% to 50%. CXR ordered to evaluate pulm status, see chart review. UA sent this AM, continues to make adequate amount of urine. Around 1700 pt's heart rhythm went to afib with frequent PVCs, HR jumping as high as 180. Team notified and 5 mg IV metop given x3 with little effect, diltiazem gtt initiated at 5 and titrated for HR>110. BP stable. Pt's respiratory status started to decline as well with sats in the low 90s on 100% hi flow mask. ABG drawn, pO2 66. ENT and anaesthesia at the bedside, pt emergently intubated. Temp of 38.6 C, critical care team notified, blood cultures ordered. PLAN MOVING FORWARD: Continue to monitor incision site for s/s of infection Continue to monitor neurological status Continue to monitor for pain INDIVIDUALIZED FALL PREVENTION INTERVENTIONS: Patient-specific fall risk factors per assessment: [current deficits]: S/p surgery Assistance [level of assistance required for transfers and ambulation]: 2 assist to turn and repo Supervision [direct monitoring required during toileting and ADLs]: Hands on Surveillance [continuous indirect monitoring]: Alarms on and audible, room near nurses station, purposeful rounding Patient-specific fall prevention interventions for sensory deficits provided, if applicable: [X] No CPG GOAL OUTCOME EVALUATION: * Plan of Care - Arely Iqbal RN - 07/19/2017 5:28 AM EDT Problem: Patient Care Overview Goal: Plan of Care Review Outcome: Ongoing (Interventions Implemented as Appropriate) 07/19/17 0523 Coping/Psychosocial Plan Of Care Reviewed With patient Plan of Care Review Progress progress towards functional goals is fair OUTCOME EVALUATION NOTE: OUTCOME SUMMARY: Pt disoriented to self, restrained for pulling at JPs/leads, positive ICU delirium. Pt groaning/coughing frequently, states no pain, able to clear secretions. SBP <160 without intervention, HFNC 45% FiO2 no desats. Minimal serous JYOTHI output. Large BM x2. PLAN MOVING FORWARD: Tx to lower LOC Start tube feeds INDIVIDUALIZED FALL PREVENTION INTERVENTIONS: Patient-specific fall risk factors per assessment: [current deficits]: Confused, recent surgery Assistance [level of assistance required for transfers and ambulation]: 2 assist Supervision [direct monitoring required during toileting and ADLs]: 2 assist Surveillance [continuous indirect monitoring]: Bedside monitor Patient-specific fall prevention interventions for sensory deficits provided, if applicable: [X] No CPG GOAL OUTCOME EVALUATION: * Plan of Care - Suzie Casanova RN - 07/18/2017 7:03 PM EDT Problem: Skin Integrity Impairment, Risk/Actual (Adult) Goal: Identify Related Risk Factors and Signs and Symptoms Related risk factors and signs and symptoms are identified upon initiation of Human Response Clinical Practice Guideline (CPG) Outcome: Ongoing (Interventions Implemented as Appropriate) OUTCOME EVALUATION NOTE: OUTCOME SUMMARY: Patient remains on 40% FIO2 HFNC. Trending ABG's, HFNC titrated in response to Pao2. Patient delirious and calling out frequently, due to delirium patient moved to a window room. Haldol administered PRN for agitation along with Fent. Nicard on and off throughout the day for bp goal below 160. Benadryl administered for flushed face and extremities. Will continue to monitor. PLAN MOVING FORWARD: Downgrade patient tomorrow. INDIVIDUALIZED FALL PREVENTION INTERVENTIONS: Patient-specific fall risk factors per assessment: [current deficits]: Assistance [level of assistance required for transfers and ambulation]: Supervision [direct monitoring required during toileting and ADLs]: Surveillance [continuous indirect monitoring]: Patient-specific fall prevention interventions for sensory deficits provided, if applicable: CPG GOAL OUTCOME EVALUATION: * Plan of Care - Lakeshia Lowe RN - 07/18/2017 4:44 AM EDT Problem: Patient Care Overview Goal: Plan of Care Review Outcome: Ongoing (Interventions Implemented as Appropriate) 07/18/17 0430 Coping/Psychosocial Plan Of Care Reviewed With patient Plan of Care Review Progress progress towards functional goals is fair OUTCOME EVALUATION NOTE: OUTCOME SUMMARY: Patient is alert, follows commands; at times verbally aggressive and threatening to staff. Precedexis currently off; PRN Haldol given x2 and PRN Fentanyl for pain. Remains on high flow cannula all evening 40L and 60% with no c/o SOB. Patient jay to 30s near beginning of shift- Atropine at bedside and Precedex weaned. SBP <160 with PRN Hydralazine; afebrile. NPO give meds but tube feeds haveremained off all evening for possibility of respiratory distress. Gluc Q4 hr elevated with no SSI. Lasix 40mg x1 given for respiratory status. Neck incision WNL; JPs with scant output. PLAN MOVING FORWARD: Wean oxygen as able Pain control Transfer when appropriate INDIVIDUALIZED FALL PREVENTION INTERVENTIONS: Patient-specific fall risk factors per assessment: [current deficits]: Confusion, IV, pain, oxygen Assistance [level of assistance required for transfers and ambulation]: 2 assist Supervision [direct monitoring required during toileting and ADLs]: RN or [facility]CEPCION Surveillance [continuous indirect monitoring]: [place] ICU monitor Patient-specific fall prevention interventions for sensory deficits provided, if applicable: [X] N/A * Plan of Care - Suzie Casanova RN - 07/17/2017 7:20 PM EDT Problem: Skin Integrity Impairment, Risk/Actual (Adult) Goal: Skin Integrity/Wound Healing Patient will demonstrate the desired outcomes by discharge/transition of care. Outcome: Ongoing (Interventions Implemented as Appropriate) OUTCOME EVALUATION NOTE: OUTCOME SUMMARY: Patient extubated this am to HFNC 40%. Due to the patients high risk re- intubation a cook cath was placed incase extubation failed. Patient began complaining about it being difficult to breath. ENT paged and aware. ABG drawn, CXR obtained and Dr. Rayo, Dr. Price, and Dr. Valdes at bedside. Furosemide, steroids racemic epi and fentanyl administered with good affect. SB. Dex max at 1.7. Nicard onand off for bp goal belong 160. A febrile. Patient visibly delirious with frequent calling out and confusion as to where he is a why he is here. Family at bedside. PLAN MOVING FORWARD: Will continue to monitor airway. INDIVIDUALIZED FALL PREVENTION INTERVENTIONS: Patient-specific fall risk factors per assessment: [current deficits]: Assistance [level of assistance required for transfers and ambulation]: Supervision [direct monitoring required during toileting and ADLs]: Surveillance [continuous indirect monitoring]: Patient-specific fall prevention interventions for sensory deficits provided, if applicable: CPG GOAL OUTCOME EVALUATION: * Plan of Care - Ayden Quintero RN - 07/17/2017 5:22 AM EDT Problem: Patient Care Overview Goal: Plan of Care Review Outcome: Ongoing (Interventions Implemented as Appropriate) 07/17/17 0512 Coping/Psychosocial Plan Of Care Reviewed With patient Plan of Care Review Progress progress toward functional goals as expected OUTCOME EVALUATION NOTE: OUTCOME SUMMARY: Patient resting over night with periods of increased restlessness. Patient on propofol, precidex and fentanyl for sedation and pain control. Sedation titrated to optimize patient care. Patient requires frequent suctioning to maintain airway. Tube feeds stopped at MN as ordered for questionable extubation today. PLAN MOVING FORWARD: Plan for extubation. INDIVIDUALIZED FALL PREVENTION INTERVENTIONS: Patient-specific fall risk factors per assessment: [current deficits]: Bedrest Assistance [level of assistance required for transfers and ambulation]: NA Supervision [direct monitoring required during toileting and ADLs]: NA Surveillance [continuous indirect monitoring]: ongoing Patient-specific fall prevention interventions for sensory deficits provided, if applicable: CPG GOAL OUTCOME EVALUATION: * Plan of Care - Mendoza Geller RN - 07/16/2017 6:02 PM EDT Problem: Skin Integrity Impairment, Risk/Actual (Adult) Goal: Identify Related Risk Factors and Signs and Symptoms Related risk factors and signs and symptoms are identified upon initiation of Human Response Clinical Practice Guideline (CPG) Outcome: Ongoing (Interventions Implemented as Appropriate) OUTCOME EVALUATION NOTE: OUTCOME SUMMARY: Pt had a 13 beat run of V Tach in the AM, team aware. Went to OR for extubation, returned to unit intubated d/t inability to extubate, will attempt at bedside tomorrow. Pt has increasing Vent Bigeminy, team aware. Trending cardiac enzymes q6h, results wnl. Decadron started q8h. Mag given. Thick copious blood tinged secretions, frequent in-line and oral suctioning required. PLAN MOVING FORWARD: Continue to monitor hemodynamic status, cardiac enzymes and secretions. INDIVIDUALIZED FALL PREVENTION INTERVENTIONS: Patient-specific fall risk factors per assessment: [current deficits]: Assistance [level of assistance required for transfers and ambulation]: Total assist. Supervision [direct monitoring required during toileting and ADLs]: Frequent visual checks. Surveillance [continuous indirect monitoring]: Monitor. Patient-specific fall prevention interventions for sensory deficits provided, if applicable: [X] N/A CPG GOAL OUTCOME EVALUATION: * Op Note - Sriram Contreras MD - 07/16/2017 12:27 PM EDT [facility] [place] Operative Note Patient Name: Jose Laws : [id number] MR#: [id number] Case Date: 07/16/2017 Surgeon: Surgeon(s) and Role: * Sriram Contreras MD - Primary * Selvin Kaye MD - Resident-Surgeon Gabriel Preoperative diagnosis: Intubation Postoperative diagnosis: Intubation Procedure(s) (LRB): LARYNGOSCOPY, WITH MICROSCOPE (WRVU 2.57) (N/A) Findings: Grade 1 view of the glottis, both with the Wilfrido laryngoscope as well as the mac blade. Supraglottic edema involving the arytenoid mucosa. Anesthesia: General Estimated Blood Loss: * No values recorded between 07/16/2017 12:20 PM and 07/16/2017 12:26 PM * Specimens removed during surgery: none Drains: none Surgical Closure: Primary Closure - closure of ALL tissue levels during the original surgery regardless of wires, wickes, drains, or other devices extruding through the incision Disposition: awakened from anesthesia, extubated and taken to the recovery room in a stable condition, having suffered no apparent untoward event. Condition: doing well without problems (Please see the Surgical Encounter Summary for any Implant and Specimen details pertinent to this patient.) HPI/Surgical Indications: Mr. Laws presents to the OR today for direct laryngoscopy and extubation attempt after TML resection of a BOT mass. Procedure Description: The patient was taken to the operating room, placed in the supine position, and general endotracheal anesthesia was achieved without complication. The bed was turned 90 degrees from anesthesia. The teeth were protected with a mouth guard. A Wilfrido laryngoscope was used to view the glottis with ease. There was found to be supraglottic edema, mostly involving the arytenoid mucosa bilaterally. Due to edema, the patient was left intubated and was transferred back to the ICU. Attestation: Case Date: 07/16/2017 I was present and I participated during the entire procedure (does not need to include opening and closing). SRIRAM CONTRERAS MD 07/22/2017 * Plan of Care - David Keen RN - 07/15/2017 6:54 PM EDT Problem: Skin Integrity Impairment, Risk/Actual (Adult) Goal: Identify Related Risk Factors and Signs and Symptoms Related risk factors and signs and symptoms are identified upon initiation of Human Response Clinical Practice Guideline (CPG) Outcome: Ongoing (Interventions Implemented as Appropriate) 07/15/17 1844 Skin Integrity Impairment, Risk/Actual Skin Integrity Impairment, Risk/Actual: Related Risk Factors edema;fluid/nutrition status;immobility;environmental exposure;age extremes;mechanical factors;medication effects;moisture;surgery/procedur e;treatment effects Signs and Symptoms (Skin Integrity Impairment) edema OUTCOME EVALUATION NOTE: OUTCOME SUMMARY: Patient remains intubated per team, scheduled for extubation in OR tomorrow. Tube feed restarted, to be held at midnight per MD. Propofol and fentanyl titrated per protocol to maintain patient comfort. NTT suctioned with moderate amount of thick brown secretions in tube as well as oral. Incision site remains moist and intact, wound cleaned and healing gel applied. Metoprolol held x2 for bradycardia per order, given once at end of shift. Iqbal draining adequately. Family visited, consent obtained by anesthesia. RT present for all turns due to difficult Nasal intubation. Will continue to monitor. PLAN MOVING FORWARD: OR for possible extubation Monitoring for signs of complications from surgical procedure INDIVIDUALIZED FALL PREVENTION INTERVENTIONS: Patient-specific fall risk factors per assessment: [current deficits]: Sedated Assistance [level of assistance required for transfers and ambulation]: Dependent Supervision [direct monitoring required during toileting and ADLs]: RN, PASTRYCOOK and RT Surveillance [continuous indirect monitoring]: Monitor Patient-specific fall prevention interventions for sensory deficits provided, if applicable: [X] Yes CPG GOAL OUTCOME EVALUATION: Goal: Skin Integrity/Wound Healing Patient will demonstrate the desired outcomes by discharge/transition of care. Outcome: Ongoing (Interventions Implemented as Appropriate) 07/15/171843 Skin Integrity Impairment, Risk/Actual (Adult) Skin Integrity/Wound Healing making progress toward outcome Problem: Pain, Acute (Adult) Goal: Identify Related Risk Factors and Signs and Symptoms Related risk factors and signs and symptoms are identified upon initiation of Human Response Clinical Practice Guideline (CPG) Outcome: Ongoing (Interventions Implemented as Appropriate) 07/15/171843 Pain, Acute Related Risk Factors (Acute Pain) communication barrier;procedure/treatment;surgery Goal: Acceptable Pain Control/Comfort Level Patient will demonstrate the desired outcomes by discharge/transition of care. Outcome: Ongoing (Interventions Implemented as Appropriate) 07/15/171843 Pain, Acute (Adult) Acceptable Pain Control/Comfort Level making progress toward outcome * Op Note - Sriram Contreras MD - 07/15/2017 4:58 PM EDT [facility] [place] Operative Note Patient Name: Jose Laws : [id number] MR#: [id number] Case Date: 07/13/2017 Surgeon: Surgeon(s) and Role: * Sriram Contreras MD - Primary * Selvin Kaye MD - Resident-Dumpster Driver * Hilton Cheney PA - Physician Hand Stoner Preoperative diagnosis: Right tongue base cancer Postoperative diagnosis: Right tongue base cancer Procedure(s) (LRB): PHARYNGECTOMY, LIMITED (WRVU 19.13) (N/A) LARYNGOSCOPY, MICRO, LASER EXCISION (WRVU 12.14) (N/A) @GLOSSECTOMY, PARTIAL,WITH UNILATERAL RADICAL NECK DISSECTION (WRVU 30.14) (Right) MODIFIER LASER,CO2 (N/A) MODIFIER MEDTRONIC (N/A) Anesthesia: General Estimated Blood Loss: 75 mL INDICATIONS FOR PROCEDURE: This 66-year-old gentleman presents with a 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 His case had been reviewed at our head and neck tumor board, and he had met with both the surgical team as well as medical and radiation oncology. After discussion on different treatment options, the patient has elected to proceed with a transoral surgical resection with neck dissection. In addition, the patient elected to participate in the IRB approved study evaluating upper aerodigestive tract defamation during laryngoscopy with intraoperative imaging and has signed the research consent for this. PROCEDURE DESCRIPTION: An informed consent was obtained. The patient was brought to the operating room and placed supine on the operating room table. General nasal intubation was performed without difficulty. The table was then turned away from anesthesia and a time-out was performed. We first started with the IRB approved protocol for evaluation of soft tissue defamation. Portion of the procedure, fiducial markers were placed on the tongue in the usual fashion going back to the circumvallate papillae. An intraoperative CT scan was then obtained with the patient in repose followed by placement of a FDA approved 3D printed Polymer laryngoscope, which is then placed in suspension using a CT compatible suspension rig. External fiducial markers were also placed on the neck for registration for navigation. A CT scan was then obtained per protocol. Once this was completed, we then registered the patient using stealth electromagnetic registration to the intraoperative imaging that had been obtained with an accuracy of 0.7 mm. Using a EM probe, we were then able to assess the extent of the tumor intraoperatively. Although, could not samm out the deep aspect of the tumor to assist with during the transoral resection. We were able to visualize the tumor endoscopically using a zero-degree telescope and correlate this with the CT images on the navigation. Once this was completed, the laryngoscope was removed, and the patient was again placed in suspension using a Wilfrido operating laryngoscope, and we transitioned from the laryngeal telescope to a binocular operating microscope with a CO2 laser attachment. All precautions to minimize risk of airway fire were then incorporated including wet towels, eye protection and complete cover the patient's face and eyes. A dental guard was also placed to protect the patient's upper dentition. We were able to visualize the tumor through the binocular operating microscope and initially felt that a transoral resection with CO2 laser in a breadloafing fashion could be achieved. The tumor was bisected along the lateral aspect to assess the depth, and as we were dividing through the tumor, there was concern that full visualization of the tumor along the deep aspect down into the vallecula could not be fully appreciated, and this could result in possible positive margin along the deep inferior aspect of the resection. We repositioned the laryngoscope multiple times and also removed portions of the tumor to see if we could better assess the depth. However, this was not feasible. The laryngoscope was then removed. We attempted visualization with a Viola-Levon retractor, and the tongue pulled anteriorly with the attempt of accessing the space transorally with the binocular operating microscope and laser or cautery. Again, visualization was not ideal, and my concern was that if we proceeded to try to perform the transoral resection, we would have the high chance of leading a positive margin. At this point, we then therefore turned our attention to the access of the tumor via a transcervical approach and through a neck incision. The neck was prepped and draped in the usual fashion, and a hockey stick incision was marked out and injected with 1% Xylocaine with 1:200,000 epinephrine. Incision was then made through the skin and platysma. Subplatysmal flaps were then elevated superiorly and inferiorly to expose the contents of the neck. Levels of 1 through 4 neck dissection was then performed in the usual fashion. First by elevating the fascia off sternocleidomastoid muscle, cutting around along the medical aspect identifying the cervical rootlets and the eleventh nerve. Also identifying the omohyoid muscle, elevating the contents off the neck laterally and dissecting towards the carotid sheath. The contents had been dissected off of the carotid sheath by skeletonizing the internal jugular vein. We maintained the tributaries draining into the vein particularly the facial-lingual trunk. We then dissected the contents off the carotid and the vagus, also off the hypoglossal nerve and then anteriorly coming up along the anterior belly of the omohyoid and then up along the inferior aspect of the submandibular gland. The periglandular tissues inferiorly were dissected free and included with the neck dissection specimen as were the jacqueline bearing tissues along the inferior aspect and anterior aspect of the submandibular gland comprising level 1B. All levels were submitted separately to Pathology for permanent analysis. Once this was completed, we then performed the transcervical pharyngotomy. The hyoid bone was identified and skeletonized. On intraoperative imaging, it appeared that the tumor was in very close proximity of the hyoid bone. Therefore on skeletonizing the hyoid bone, we elected to resect the lateral cornu of the hyoid to include with the main specimen. The hypoglossal nerve was traced and reflected superiorly to preserve the nerve. We then came through the mylohyoid muscle and the hyoglossus muscle and then ultimately came in through the constricture to enter into the pharynx laterally. Through this lateral pharyngotomy, we also took great care to minimize injury to the superior laryngeal nerve along the right side. Once the pharyngotomy was performed, we then continued with the partial pharyngectomy extending up towards the tonsillar fossa and then coming down along the posterior pharyngeal wall. We then performed the partial glossectomy by carrying the resection into the vallecula. The tumor despite prior evaluation was adherent to the epiglottis, and therefore, we resected the right half of the epiglottis down into the vallecula resecting the suprahyoid portion of the epiglottis. The resection was then carried up into the base of tongue crossing midline to the left side but leaving a portion of the left base of tongue and avoiding the neurovascular pedicle on the left-hand side. We did have to ligate the lingual artery on the right-hand side but we were able to preserve hypoglossal nerve. We then carried the dissection up into the deep tongue musculature and carried the dissection anteriorly up into the circumvallate papillae laterally towards the lateral tongue and floor of mouth and connected this resection with the pharyngotomy and the lateral pharyngectomy that we had performed. The specimen was then removed, oriented for Pathology. An additional final margin from the right pharynx was submitted. This was submitted as a frozen section but a large strip mucosa was taken to encompass a final margin. Additional margins were submitted from the tongue base both deep and superficial right and left from the preepiglottic fat and from the lateral tongue. This included frozen and final margins. All frozens were ultimately negative. We then performed the pharyngeal closure by first rearranging the epiglottis bringing over the left half of the epiglottis to provide a coverage on the right side creating an overall smaller epiglottis but one that covered bilaterally. This was secured in place with multiple 5-0 Chromic sutures. The pharyngeal closure was then achieved with 3-0 Vicryl sutures in an interrupted vertical and horizontal mattress fashion reapproximating mucosa along the lateral pharyngeal wall to the vallecula and base of tongue for the first layer and a second layer from the deep tongue musculature to the pharyngeal constricture muscle and finally for the third layer, we mobilized the omohyoid muscle inferiorly and rotated it laterally to cover the suture line of the pharyngotomy and tacked this down with additional Vicryl suture. Once this was completed, two 15-Setswana Robin drains were placed in the neck, one laterally and one anteriorly and secured with 3-0 Silk. The neck was then closed in layers using 3-0 Silk stitches for the platysma and crystal for the skin. Due to the extensive transoral resection and pharyngotomy that had to be performed and the patient's habitus with his large tongue and history of sleep apnea, we elected to keep him intubated, and he was transferred to the ICU in stable condition. All needle, sponge and instrument counts were accurate at the end of the case. There were no complications with this procedure. Attestation: Case Date: 07/13/2017 I was present and I participated during the entire procedure (does not need to include opening and closing). SRIRAM CONTRERAS MD 07/15/2017 * Initial Assessments - Roc Valdez RN - 07/14/2017 3:09 PM EDT Office of Care Management Initial Assessment Roc Valdez RN reviewed record and discussed patient with Care Team. Source of Information: via chart review and phone interview with pt's spouse Briana. Introduced self/reviewed role; services accepted. Reason for Hospitalization: Reason for Admission as Stated by Patient: Removing tumor on the back of tongue Admission Diagnosis: Head and neck cancer [C76.0] From H&P: Jose Laws is a 66 y.o. 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 During the case he was found to be hypoxic (min pO2 68 on FiO2 25%) with peak lactate 3.69and hyperkalemia (peak 5.7) for which FiO2 was bumped to 100% with good response (pO2 96, lactate 2.4, K 3.7). He is admitted to the ICU post-operatively (07/13/2017) nasally intubated and sedated- Zulema Cuevas MD. Past Medical History: Diagnosis Date ??? Arthritis ??? Atrial fibrillation ??? BPH (benign prostatic hyperplasia) ??? Cataract, right eye ??? ED (erectile dysfunction) ??? Hypothyroidism ??? Pulmonary embolism Hospitalizations Within the Past 30 Days: no recent admissions identified. Anticipated Length Of Stay (If known): Expected Length of Hospitalization: 2-3 Current Decision-Making Capacity: nasally intubated/sedated, not able to make decisions at this time. Advance Care Planning: no AD on file. Pt is a Full Code. If AD's have not been completed pt's spouse Briana Laws would be surrogate decision maker [place]. Any patient receiving care at [facility] must abide by [place] law. The hierarchy for surrogate decision making is: (a) Patient???s spouse, or civil union partner or common law spouse unless there is a divorce proceeding, separation agreement, or restraining order limiting that person???s relationship with the patient. (b) Any adult son or daughter of the patient. (c) Either parent of the patient. (d) Any adult brother or sister of the patient. (e) Any adult grandchild of the patient. (f) Any grandparent of the patient. (g) Any adult aunt, uncle, niece, or nephew of the patient. (h) A close friend of the patient. (i) The agent with financial power of retail marketing executive or a conservator appointed in accordance with RSA 464-A. (j) The guardian of the patient???s estate. Current Coping/Education/Information Needs: no need for a family meeting at this time. Current Functional Ability: bedrest, dependent on staff. Functional Status Prior to Admission: independent, no DME. Home Environment: pt lives with his spouse in a multi-story house which they enter at ground level.There are bathrooms on each floor. Social & Family Supports/Community Resources: denies needs or current services. Behavioral Health History: none identified in chart review. Substance Use/Abuse: pt is a former cigarette smoker who quit in 1995 after smoking 1 ppd for 27 years. Remote MJ history but pt hasn't used in 25 years. Pt has 1-2 drinks/week of liquor. Other Pertinent/Service Specific Information: none. Health/Prescription Coverage: Primary Insurance: MEDICARE A & B Secondary Insurance: [employer] [facility] Prescription Coverage: yes. Preferred Pharmacy: [facility] in [place], [place]. Other: none. Primary Care Provider: Jovon Sifuentes MD [phone] Patient/Caregiver Goals of Treatment: plan being determined at this time. Likely home health at [place]. Potential Needs for Transition of Care: Rehab/SNF: tbd. Home Health: tbd. DME: none previously required. Dialysis: N/A Community Resources: none. Transportation: spouse will provide. Other: none. Anticipated Barriers to Discharge/Special Considerations: no barriers identified at this time. Plan: a member of the Care Management team will continue to monitor progress, follow for continuityof care and assist with transition of care planning. Manager Presentation Roc Valdez RN, BSN Pager #[phone] documented in this encounter Plan of Treatment Upcoming Encounters Date Type Department Care Team (Late st Contact Info) Description 08/01/2024 1:00 PM EDT Office Visit Hematology/Oncology at [address] [phone] Dmitry Bhatti MD [facility] DR HEMATOLOGY/[place] [address] Ellen Mcrae APRN [facility] [place] [address] 08/01/2024 1:30 PM EDT Infusion Hematology Oncology at [address] [phone] documented as of this encounter Procedures Procedure Name Priority Date/Time Associated Diagnosis Comments SHOW HORSE DRIVER SCAN 07/30/2017 12:00 AM EDT HEMOGRAM Routine 07/29/2017 3:41 AM EDT DIFFERENTIAL, AUTOMATED Routine 07/29/2017 3:41 AM EDT CBC (WITH DIFF) Routine 07/29/2017 3:41 AM EDT BASIC METABOLIC PANEL (NON-FASTING) Routine 07/29/2017 3:41 AM EDT POCT GLUCOSE Routine 07/28/2017 11:53 AM EDT POCT GLUCOSE Routine 07/28/2017 7:52 AM EDT POCT GLUCOSE Routine 07/28/2017 4:27 AM EDT HEMOGRAM Routine 07/28/2017 3:47 AM EDT DIFFERENTIAL, AUTOMATED Routine 07/28/2017 3:47 AM EDT CBC (WITH DIFF) Routine 07/28/2017 3:47 AM EDT PHOSPHORUS Routine 07/28/2017 3:47 AM EDT MAGNESIUM Routine 07/28/2017 3:47 AM EDT BASIC METABOLIC PANEL (NON-FASTING) Routine 07/28/2017 3:47 AM EDT POCT GLUCOSE Routine 07/27/2017 11:52 PM EDT HEPARIN, LOW MOLECULAR WEIGHT ASSAY Routine 07/27/2017 8:19 PM EDT POCT GLUCOSE Routine 07/27/2017 7:35 PM EDT POCT GLUCOSE Routine 07/27/2017 3:28 PM EDT POCT GLUCOSE Routine 07/27/2017 11:06 AM EDT POCT GLUCOSE Routine 07/27/2017 7:25 AM EDT DUPLEX FOR DVT BILAT LEGS Routine 07/27/2017 6:59 AM EDT Other pulmonary embolism without acute cor pulmonale POCT GLUCOSE Routine 07/27/2017 3:52 AM EDT HEMOGRAM Routine 07/27/2017 2:45 AM EDT DIFFERENTIAL, AUTOMATED Routine 07/27/2017 2:45 AM EDT APTT STAT 07/27/2017 2:45 AM EDT CBC (WITH DIFF) Routine 07/27/2017 2:45 AM EDT PHOSPHORUS Routine 07/27/2017 2:45 AM EDT MAGNESIUM Routine 07/27/2017 2:45 AM EDT BASIC METABOLIC PANEL (NON-FASTING) Routine 07/27/2017 2:45 AM EDT POCT GLUCOSE Routine 07/27/2017 12:02 AM EDT APTT STAT 07/26/2017 9:29 PM EDT POCT GLUCOSE Routine 07/26/2017 8:14 PM EDT POCT GLUCOSE Routine 07/26/2017 3:20 PM EDT APTT STAT 07/26/2017 1:51 PM EDT POCT GLUCOSE Routine 07/26/2017 11:12 AM EDT POCT GLUCOSE Routine 07/26/2017 7:35 AM EDT HEMOGRAM Routine 07/26/2017 3:30 AM EDT DIFFERENTIAL, AUTOMATED Routine 07/26/2017 3:30 AM EDT APTT STAT 07/26/2017 3:30 AM EDT CBC (WITH DIFF) Routine 07/26/2017 3:30 AM EDT PREALBUMIN Routine 07/26/2017 3:30 AM EDT BASIC METABOLIC PANEL (NON-FASTING) Routine 07/26/2017 3:30 AM EDT POCT GLUCOSE Routine 07/26/2017 3:27 AM EDT POCT GLUCOSE Routine 07/25/2017 7:50 PM EDT APTT STAT 07/25/2017 5:51 PM EDT POCT GLUCOSE Routine 07/25/2017 4:01 PM EDT POCT GLUCOSE Routine 07/25/2017 12:10 PM EDT APTT STAT 07/25/2017 11:00 AM EDT POTASSIUM Routine 07/25/2017 11:00 AM EDT POCT GLUCOSE Routine 07/25/2017 8:27 AM EDT BLOOD GAS 2 ARTERIAL Routine 07/25/2017 6:19 AM EDT POCT GLUCOSE Routine 07/25/2017 4:41 AM EDT HEMOGRAM Routine 07/25/2017 4:37 AM EDT DIFFERENTIAL, AUTOMATED Routine 07/25/2017 4:37 AM EDT APTT STAT 07/25/2017 4:37 AM EDT CBC (WITH DIFF) Routine 07/25/2017 4:37 AM EDT MAGNESIUM Routine 07/25/2017 4:37 AM EDT BASIC METABOLIC PANEL (NON-FASTING) Routine 07/25/2017 4:37 AM EDT POCT GLUCOSE Routine 07/25/2017 12:10 AM EDT POCT GLUCOSE Routine 07/24/2017 8:05 PM EDT POCT GLUCOSE Routine 07/24/2017 8:04 PM EDT POCT GLUCOSE Routine 07/24/2017 3:42 PM EDT POCT GLUCOSE Routine 07/24/2017 11:42 AM EDT POCT GLUCOSE Routine 07/24/2017 8:00 AM EDT BLOOD GAS 2 ARTERIAL Routine 07/24/2017 7:28 AM EDT POTASSIUM Routine 07/24/2017 7:28 AM EDT POCT GLUCOSE Routine 07/24/2017 3:42 AM EDT SCAN, PERIPHERAL BLOOD Routine 07/24/2017 1:00 AM EDT HEMOGRAM Routine 07/24/2017 1:00 AM EDT DIFFERENTIAL, AUTOMATED Routine 07/24/2017 1:00 AM EDT APTT STAT 07/24/2017 1:00 AM EDT CBC (WITH DIFF) Routine 07/24/2017 1:00 AM EDT BASIC METABOLIC PANEL (NON-FASTING) Routine 07/24/2017 1:00 AM EDT POCT GLUCOSE Routine 07/23/2017 11:53 PM EDT POCT GLUCOSE Routine 07/23/2017 7:52 PM EDT POCT GLUCOSE Routine 07/23/2017 2:56 PM EDT APTT STAT 07/23/2017 2:55 PM EDT POCT GLUCOSE Routine 07/23/2017 12:07 PM EDT APTT STAT 07/23/2017 8:27 AM EDT POCT GLUCOSE Routine 07/23/2017 8:02 AM EDT BLOOD GAS 2 ARTERIAL Routine 07/23/2017 6:32 AM EDT POTASSIUM Routine 07/23/2017 4:15 AM EDT POCT GLUCOSE Routine 07/23/2017 3:50 AM EDT APTT STAT 07/23/2017 1:53 AM EDT HEMOGRAM Routine 07/23/2017 12:45 AM EDT DIFFERENTIAL, AUTOMATED Routine 07/23/2017 12:45 AM EDT CBC (WITH DIFF) Routine 07/23/2017 12:45 AM EDT BASIC METABOLIC PANEL (NON-FASTING) Routine 07/23/2017 12:45 AM EDT POCT GLUCOSE Routine 07/22/2017 11:59 PM EDT POCT GLUCOSE Routine 07/22/2017 8:07 PM EDT POCT GLUCOSE Routine 07/22/2017 4:00 PM EDT APTT STAT 07/22/2017 4:00 PM EDT POCT GLUCOSE Routine 07/22/2017 11:45 AM EDT APTT STAT 07/22/2017 8:30 AM EDT POCT GLUCOSE Routine 07/22/2017 8:28 AM EDT BLOOD GAS 2 ARTERIAL Routine 07/22/2017 8:27 AM EDT HEMOGRAM Routine 07/22/2017 3:10 AM EDT DIFFERENTIAL, AUTOMATED Routine 07/22/2017 3:10 AM EDT APTT STAT 07/22/2017 3:10 AM EDT CBC (WITH DIFF) Routine 07/22/2017 3:10 AM EDT BASIC METABOLIC PANEL (NON-FASTING) Routine 07/22/2017 3:10 AM EDT POCT GLUCOSE Routine 07/22/2017 3:08 AM EDT POCT GLUCOSE Routine 07/21/2017 11:52 PM EDT EKG 12-LEAD STAT 07/21/2017 10:42 PM EDT QT prolongation Persistent atrial fibrillation MAGNESIUM STAT 07/21/2017 10:35 PM EDT BASIC METABOLIC PANEL (NON-FASTING) STAT 07/21/2017 10:35 PM EDT APTT STAT 07/21/2017 9:10 PM EDT POCT GLUCOSE Routine 07/21/2017 7:49 PM EDT POCT GLUCOSE Routine 07/21/2017 4:10 PM EDT APTT STAT 07/21/2017 4:10 PM EDT POCT GLUCOSE Routine 07/21/2017 12:04 PM EDT C. DIFFICILE SCREEN Routine 07/21/2017 9 :00 AM EDT APTT STAT 07/21/2017 8:30 AM EDT POTASSIUM Routine 07/21/2017 8:30 AM EDT POCT GLUCOSE Routine 07/21/2017 8:24 AM EDT BLOOD GAS 2 ARTERIAL Routine 07/21/2017 7:42 AM EDT POCT GLUCOSE Routine 07/21/2017 3:21 AM EDT POTASSIUM Routine 07/21/2017 3:20 AM EDT APTT STAT 07/21/2017 1:05 AM EDT HEMOGRAM Routine 07/21/2017 12:25 AM EDT DIFFERENTIAL, AUTOMATED Routine 07/21/2017 12:25 AM EDT CBC (WITH DIFF) Routine 07/21/2017 12:25 AM EDT BASIC METABOLIC PANEL (NON-FASTING) Routine 07/21/2017 12:25 AM EDT BLOOD GAS 2 ARTERIAL Routine 07/21/2017 12:21 AM EDT POCT GLUCOSE Routine 07/21/2017 12:00 AM EDT POTASSIUM Routine 07/20/2017 9:50 PM EDT EKG 12-LEAD Routine 07/20/2017 8:40 PM EDT QT prolongation POCT GLUCOSE Routine 07/20/2017 7:28 PM EDT HEMOGRAM Routine 07/20/2017 5:15 PM EDT DIFFERENTIAL, AUTOMATED Routine 07/20/2017 5:15 PM EDT APTT STAT 07/20/2017 5:15 PM EDT CBC (WITH DIFF) Routine 07/20/2017 5:15 PM EDT MAGNESIUM Routine 07/20/2017 4:50 PM EDT BASIC METABOLIC PANEL (NON-FASTING) Routine 07/20/2017 4:50 PM EDT POCT GLUCOSE Routine 07/20/2017 3:[address] CHEST PULMONARY EMBOLISM W CONTRAST Routine 07/20/2017 1:18 PM EDT LOWER RESPIRATORY CULTURE Routine 07/20/2017 12:31 PM EDT POCT GLUCOSE Routine 07/20/2017 11:45 AM EDT BLOOD GAS 2 ARTERIAL Routine 07/20/2017 11:43 AM EDT POTASSIUM Routine 07/20/2017 10:15 AM EDT XR CHEST ONE VIEW Routine 07/20/2017 8:1 5 AM EDT INTUBATION Routine 07/20/2017 7:51 AM EDT POCT GLUCOSE Routine 07/20/2017 7:29 AM EDT POTASSIUM Routine 07/20/2017 7:28 AM EDT HEMOGRAM Routine 07/20/2017 3:15 AM EDT DIFFERENTIAL, AUTOMATED Routine 07/20/2017 3:15 AM EDT CBC (WITH DIFF) Routine 07/20/2017 3:15 AM EDT BASIC METABOLIC PANEL (NON-FASTING) Routine 07/20/2017 3:15 AM EDT POCT GLUCOSE Routine 07/20/2017 3:13 AM EDT BLOOD GAS 2 ARTERIAL Routine 07/19/2017 11:36 PM EDT POCT GLUCOSE Routine 07/19/2017 11:31 PM EDT POTASSIUM Routine 07/19/2017 11:30 PM EDT POCT GLUCOSE Routine 07/19/2017 7:45 PM EDT BLOOD CULTURE STAT 07/19/2017 7:00 PM EDT BLOOD CULTURE STAT 07/19/2017 6:50 PM EDT XR CHEST ONE VIEW STAT 07/19/2017 6:3 5 PM EDT BLOOD GAS 2 ARTERIAL Routine 07/19/2017 5:12 PM EDT EKG 12-LEAD STAT 07/19/2017 4:55 PM EDT Persistent atrial fibrillation PHOSPHORUS STAT 07/19/2017 4:50 PM EDT MAGNESIUM STAT 07/19/2017 4:50 PM EDT BASIC METABOLIC PANEL (NON-FASTING) STAT 07/19/2017 4:50 PM EDT POCT GLUCOSE Routine 07/19/2017 3:37 PM EDT XR CHEST ONE VIEW STAT 07/19/2017 12: 53 PM EDT POCT GLUCOSE Routine 07/19/2017 12:36 PM EDT POTASSIUM Routine 07/19/2017 12:30 PM EDT BLOOD GAS 2 ARTERIAL Routine 07/19/2017 12:17 PM EDT TSH Routine 07/19/2017 8:50 AM EDT POTASSIUM Routine 07/19/2017 8:50 AM EDT FOLATE, SERUM Routine 07/19/2017 8:50 AM EDT VITAMIN B12 Routine 07/19/2017 8:50 AM EDT URINE HOLD Routine 07/19/2017 8:07 AM EDT URINALYSIS WITH REFLEX CULTURE Routine 07/19/2017 8:07 AM EDT POCT GLUCOSE Routine 07/19/2017 7:42 AM EDT POCT GLUCOSE Routine 07/19/2017 4:11 AM EDT HEMOGRAM Routine 07/19/2017 2:30 AM EDT DIFFERENTIAL, AUTOMATED Routine 07/19/2017 2:30 AM EDT CBC (WITH DIFF) Routine 07/19/2017 2:30 AM EDT PREALBUMIN Routine 07/19/2017 2:30 AM EDT BASIC METABOLIC PANEL (NON-FASTING) Routine 07/19/2017 2:30 AM EDT BLOOD GAS 2 ARTERIAL Routine 07/18/2017 11:53 PM EDT POCT GLUCOSE Routine 07/18/2017 11:49 PM EDT POCT GLUCOSE Routine 07/18/2017 8:44 PM EDT BLOOD GAS 2 ARTERIAL Routine 07/18/2017 5:22 PM EDT POCT GLUCOSE Routine 07/18/2017 3:42 PM EDT POCT GLUCOSE Routine 07/18/2017 1:05 PM EDT BLOOD GAS 2 ARTERIAL Routine 07/18/2017 11:47 AM EDT BLOOD GAS 2 ARTERIAL Routine 07/18/2017 7:56 AM EDT BLOOD GAS 2 ARTERIAL Routine 07/18/2017 3:55 AM EDT POCT GLUCOSE Routine 07/18/2017 3:42 AM EDT HEMOGRAM Routine 07/18/2017 2:20 AM EDT DIFFERENTIAL, AUTOMATED Routine 07/18/2017 2:20 AM EDT CBC (WITH DIFF) Routine 07/18/2017 2:20 AM EDT MAGNESIUM Routine 07/18/2017 2:20 AM EDT BASIC METABOLIC PANEL (NON-FASTING) Routine 07/18/2017 2:20 AM EDT BLOOD GAS 2 ARTERIAL Routine 07/17/2017 11:36 PM EDT POCT GLUCOSE Routine 07/17/2017 11:34 PM EDT MAGNESIUM Routine 07/17/2017 10:10 PM EDT BLOOD GAS 2 ARTERIAL Routine 07/17/2017 7:51 PM EDT POCT GLUCOSE Routine 07/17/2017 7:50 PM EDT BLOOD GAS 2 ARTERIAL Routine 07/17/2017 3:20 PM EDT BLOOD GAS 2 ARTERIAL Routine 07/17/2017 12:50 PM EDT XR CHEST ONE VIEW STAT 07/17/2017 12: 33 PM EDT BLOOD GAS 2 ARTERIAL Routine 07/17/2017 11:54 AM EDT EXTUBATE Routine 07/17/2017 10:34 AM EDT CARDIAC ENZYMES (MC/CGP) STAT 07/17/2017 5:42 AM EDT HEMOGRAM Routine 07/17/2017 12:30 AM EDT DIFFERENTIAL, AUTOMATED Routine 07/17/2017 12:30 AM EDT CARDIAC ENZYMES (MC/CGP) STAT 07/17/2017 12:30 AM EDT CBC (WITH DIFF) Routine 07/17/2017 12:30 AM EDT BASIC METABOLIC PANEL (NON-FASTING) Routine 07/17/2017 12:30 AM EDT ENDOTRACHEAL TUBE POSITION CHANGE STAT 07/16/2017 5:51 PM EDT XR CHEST ONE VIEW STAT 07/16/2017 5:2 4 PM EDT CARDIAC ENZYMES ([facility]/CGP) STAT 07/16/2017 5:10 PM EDT EKG 12-LEAD STAT 07/16/2017 4:46 PM EDT Persistent atrial fibrillation LARYNGOSCOPY, WITH MICROSCOPE Routine 07/16/2017 12:26 PM EDT LARYNGOSCOPY, WITH MICROSCOPE (WRVU 2.57) 07/16/2017 12:02 PM EDT Intubation HEMOGRAM Routine 07/16/2017 4:00 AM EDT DIFFERENTIAL, AUTOMATED Routine 07/16/2017 4:00 AM EDT CBC (WITH DIFF) Routine 07/16/2017 4:00 AM EDT MAGNESIUM Routine 07/16/2017 4:00 AM EDT BASIC METABOLIC PANEL (NON-FASTING) Routine 07/16/2017 4:00 AM EDT POCT GLUCOSE Routine 07/15/2017 12:26 PM EDT BASIC METABOLIC PANEL (NON-FASTING) STAT 07/15/2017 10:20 AM EDT POCT GLUCOSE Routine 07/15/2017 8:30 AM EDT BLOOD GAS 2 ARTERIAL Routine 07/15/2017 4:17 AM EDT HEMOGRAM Routine 07/15/2017 4:15 AM EDT DIFFERENTIAL, AUTOMATED Routine 07/15/2017 4:15 AM EDT CBC (WITH DIFF) Routine 07/15/2017 4:15 AM EDT POTASSIUM Routine 07/14/2017 8:20 PM EDT MAGNESIUM Routine 07/14/2017 8:20 PM EDT MAGNESIUM Routine 07/14/2017 4:30 PM EDT POCT GLUCOSE Routine 07/14/2017 4:26 PM EDT EKG 12-LEAD STAT 07/14/2017 12:37 PM EDT Persistent atrial fibrillation POCT GLUCOSE Routine 07/14/2017 12:05 PM EDT POCT GLUCOSE Routine 07/14/2017 8:25 AM EDT HEMOGRAM Routine 07/14/2017 12:36 AM EDT DIFFERENTIAL, AUTOMATED Routine 07/14/2017 12:36 AM EDT CBC (WITH DIFF) Routine 07/14/2017 12:36 AM EDT PREALBUMIN Routine 07/14/2017 12:36 AM EDT PHOSPHORUS Routine 07/14/2017 12:36 AM EDT MAGNESIUM Routine 07/14/2017 12:36 AM EDT BASIC METABOLIC PANEL (NON-FASTING) Routine 07/14/2017 12:36 AM EDT BASIC METABOLIC PANEL (NON-FASTING) STAT 07/13/2017 9:33 PM EDT XR CHEST ONE VIEW STAT 07/13/2017 8:5 4 PM EDT SPECIMEN TO PATHOLOGY Routine 07/13/2017 7:35 PM EDT SPECIMEN TO PATHOLOGY Routine 07/13/2017 7:05 PM EDT SPECIMEN TO PATHOLOGY Routine 07/13/2017 6:21 PM EDT SPECIMEN TO PATHOLOGY Routine 07/13/2017 5:30 PM EDT SPECIMEN TO PATHOLOGY Routine 07/13/2017 5:30 PM EDT SPECIMEN TO PATHOLOGY Routine 07/13/2017 5:30 PM EDT SPECIMEN TO PATHOLOGY Routine 07/13/2017 5:30 PM EDT SPECIMEN TO PATHOLOGY Routine 07/13/2017 5:21 PM EDT SPECIMEN TO PATHOLOGY Routine 07/13/2017 5:21 PM EDT SPECIMEN TO PATHOLOGY Routine 07/13/2017 5:21 PM EDT SPECIMEN TO PATHOLOGY Routine 07/13/2017 5:16 PM EDT SPECIMEN TO PATHOLOGY Routine 07/13/2017 5:05 PM EDT SPECIMEN TO PATHOLOGY Routine 07/13/2017 5:05 PM EDT SPECIMEN TO PATHOLOGY Routine 07/13/2017 4:39 PM EDT SPECIMEN TO PATHOLOGY Routine 07/13/2017 4:35 PM EDT SPECIMEN TO PATHOLOGY Routine 07/13/2017 4:35 PM EDT SPECIMEN TO PATHOLOGY Routine 07/13/2017 3:52 PM EDT SPECIMEN TO PATHOLOGY Routine 07/13/2017 3:52 PM EDT BLOOD GAS 2 ARTERIAL Routine 07/13/2017 3:46 PM EDT BLOOD GAS 2 ARTERIAL Routine 07/13/2017 2:06 PM EDT COMPREHENSIVE METABOLIC PANEL (NON-FASTING) Routine 07/13/2017 12:56 PM EDT BLOOD GAS 2 ARTERIAL Routine 07/13/2017 12:15 PM EDT SURGICAL PATHOLOGY REPORT Routine 07/13/2017 12:04 PM EDT SPECIMEN TO PATHOLOGY Routine 07/13/2017 12:02 PM EDT BLOOD GAS 2 ARTERIAL Routine 07/13/2017 10:35 AM EDT MODIFIER MEDTRONIC Yes 07/13/2017 8: 01 AM EDT Cancer of base of tongue MODIFIER LASER,CO2 Yes 07/13/2017 8: 01 AM EDT Cancer of base of tongue @GLOSSECTOMY, PARTIAL,WITH UNILATERAL RADICAL NECK DISSECTION (WRVU 30.14) Yes 07/13/2017 8:01 AM EDT Cancer of base of tongue LARYNGOSCOPY, MICRO, LASER EXCISION (WRVU 12.14) Yes 07/13/2017 8:01 AM EDT Cancer of base of tongue PHARYNGECTOMY, LIMITED (WRVU 19.13) Yes 07/13/2017 8:01 AM EDT Cancer of base of tongue ABORH RECHECK STATUS STAT 07/13/2017 6:27 AM EDT TYPE AND SCREEN, SDP (FUTURE SURGERY, [facility] SAME DAY PROGRAM ONLY) STAT 07/13/2017 6:27 AM EDT ABO/RH TYPING STAT 07/13/2017 6:27 AM EDT ANTIBODY SCREEN STAT 07/13/2017 6:27 AM EDT documented in this encounter Results * SCAN DOC: SHOW HORSE DRIVER (07/30/2017 12:00 AM EDT) Anatomical Region Laterality Modality Other Narrative 07/30/2017 12:00 AM EDT Ordered by an unspecified provider. Scanning Provider MEDIA MGR SCAN EXT O RDR/RSLT * (ABNORMAL) Differential, Automated (07/29/2017 3:41 AM EDT) Neutrophils % 59.9 % [facility] Neutr Abs (ANC) 4.48 1.70 - 6.10 x10(3)/mc L [facility] Lymphocytes % 26.0 % [facility] Lymphocytes Abs 2.0 0.9 - 3.2 x10(3)/[facility] Monocytes % 10.0 % [facility] Monocyte Abs 0.8 0.3 - 0.9 x10(3)/[facility] Eosinophils % 2.1 % [facility] Eosinophils Abs 0.2 0.0 - 0.4 x10(3)/[facility] Basophils % 0.7 % [facility] Basophils Abs 0.0 0.0 - 0.1 x10(3)/[facility] Immature Gran % 1.30 % [facility] Comment: Immature granulocytes(IG's)percentage and absolute count will include metamyelocytes, myelocytes, and promyelocytes. Blood smears from CBCs yielding IG's will be scanned manually for concordance. If this scan disagrees with the automated IG or if promyelocytes are noted, a manual differential will be performed. Patti Gran Abs 0.10(H) 0.00 - 0.04 x10(3)/[facility] Blood specimen (specimen) 07/29/2017 3:41 AM EDT 07/29/2017 3:58 AM EDT Narrative Resulting Agency Comment Spec In Lab Sriram Contreras MD HEMATOLOGY ORDERAB LES [facility] [place] [address] * (ABNORMAL) Hemogram (07/29/2017 3:41 AM EDT) WBC 7.5 4.0 - 9.5 x10(3)/[facility] LABORATORY RBC 4.14(L) 4.58 - 5.54 x10(6)/[facility] LABORATORY Hemoglobin 12.7(L) 13.7 - 16.5 gm/dL [facility] Hematocrit 38.1(L) 40.5 - 48.5 % [facility] MCV 92.0 82.9 - 93.1 fL [facility] MCH 30.7 27.5 - 32.1 pg [facility] MCHC 33.3 32.0 - 35.7 gm/dL [facility] Platelets 281 145 - 357 x10(3)/[facility] LABORATORY RDWSD 46.4(H) 36.0 - 45.0 [facility] LABORATORY RDWCV 13.9(H) 11.4 - 13.8 % [facility] MPV 9.9 7.6 - 12.9 [facility] LABORATORY nRBC % Auto 0.0 % [facility] LABORATORY nRBC Abs Auto 0.000 0.000 - 0.000 x10(3)/[facility] LABORATORY Blood specimen (specimen) 07/29/2017 3:41 AM EDT 07/29/2017 3:58 AM EDT Narrative Resulting Agency Comment Spec In Lab Sriram Contreras MD HEMATOLOGY ORDERAB LES [facility] [place] [address] * Basic Metabolic Panel (non-fasting) (07/29/2017 3:41 AM EDT) Glucose Lvl 95 65 - 199 mg/dL [facility] Comment:Diabetes: >=200 mg/d L plus symptoms BUN 16 10 - 20 mg/dL [facility] Creatinine 0.95 0.80 - 1.50 mg/dL [facility] Comment: Please note that the pediatric reference intervals supplied above were not validated at [facility]. Results from pediatric patients should be interpreted in conjunction to the patient's age, height and muscle mass. Sodium 139 135 - 145 mmol/L [facility] Potassium 3.9 3.5 - 5.0 mmol/L [facility] Comment: Please note: ??Patients with WBC >100,000 may have falsely elevated Potassium levels. ??For accurate Potassium quantification in these patients send serum separator tube (gold top) for subsequent determinations. ??Contact the Clinical Chemistry Laboratory if there are any questions. Chloride 102 98 - 107 mmol/L [facility] CO2 24 22 - 31 mmol/L [facility] Anion Gap 13 5 - 15 mmol/L [facility] Calcium 8.9 8.5 - 10.5 mg/dL [facility] Estimated GFR >60 >=60 [facility] Comment: This estimated GFR (eGFR) value was calculated using the MDRD equation which has been validated on patients between the ages of 18 and 70. The MDRD should not be used to assess kidney function in patients < 18 years of age or in patients with extremes of body mass, or in patients with acute kidney failure. This value should be multiplied by 1.2 for patients. For further information please copy and paste the following links into your internet browser. [email or web address] Blood specimen (specimen) 07/29/2017 3:41 AM EDT 07/29/2017 3:58 AM EDT Narrative Resulting Agency Comment Spec In Lab Sriram Contreras MD CHEMISTRY ORDERABL ES Performing Organization Address [facility]/ZIP Co de Phone Number [facility] [place] [address] * POCT Glucose (07/28/2017 11:53 AM EDT) POC Glucose 107 65 - 199 mg/dL [facility] Comment: Supplemental ranges: <140 mg/dL before meals <180 mg/dL all other times of the day Blood specimen (specimen) 07/28/2017 11:53 AM EDT 07/28/2017 11:53 AM EDT Sriram Contreras MD POINT OF CARE TEST ORDERABLES Performing Organization Address City/[facility]/ZIP Co de Phone Number [facility] [place] [address] * POCT Glucose (07/28/2017 7:52 AM EDT) POC Glucose 97 65 - 199 mg/dL [facility] Comment: Supplemental ranges: <140 mg/dL before meals <180 mg/dL all other times of the day Blood specimen (specimen) 07/28/2017 7:52 AM EDT 07/28/2017 7:52 AM EDT Sriram Contreras MD POINT OF CARE TEST ORDERABLES Performing Organization Address [facility] Co de Phone Number [facility] [place] [address] * POCT Glucose (07/28/2017 4:27 AM EDT) POC Glucose 98 65 - 199 mg/dL [facility] Comment: Supplemental ranges: <140 mg/dL before meals <180 mg/dL all other times of the day Blood specimen (specimen) 07/28/2017 4:27 AM EDT 07/28/2017 4:27 AM EDT Sriram Contreras MD POINT OF CARE TEST ORDERABLES Performing Organization Address [facility] Co de Phone Number [facility] [place] [address] * Phosphorus (07/28/2017 3:47 AM EDT) Phosphorus 3.7 2.5 - 4.5 mg/dL [facility] Blood specimen (specimen) 07/28/2017 3:47 AM EDT 07/28/2017 6:16 AM EDT Narrative Resulting Agency Comment Spec In Lab Sriram Contreras MD CHEMISTRY ORDERABL ES Performing Organization Address City/[facility]/ZIP Co de Phone Number [facility] [place] [address] * Magnesium (07/28/2017 3:47 AM EDT) Magnesium 0.86 0.69 - 1.07 mmol/L [facility] Blood specimen (specimen) 07/28/2017 3:47 AM EDT 07/28/2017 6:16 AM EDT Narrative Resulting Agency Comment Spec In Lab Sriram Contreras MD CHEMISTRY ORDERABL ES [facility] [place] [address] * (ABNORMAL) Differential, Automated (07/28/2017 3:47 AM EDT) Pathologist [facility] Neutrophils % 62.2 % [facility] Neutr Abs (ANC) 4.94 1.70 - 6.10 x10(3)/ L [facility] Lymphocytes % 22.1 % [facility] Lymphocytes Abs 1.8 0.9 - 3.2 x10(3)/[facility] LABORATORY Monocytes % 10.6 % [facility] Monocyte Abs 0.8 0.3 - 0.9 x10(3)/[facility] LABORATORY Eosinophils % 2.1 % [facility] Eosinophils Abs 0.2 0.0 - 0.4 x10(3)/[facility] LABORATORY Basophils % 1.1 % [facility] Basophils Abs 0.1 0.0 - 0.1 x10(3)/ L [facility] Immature Gran % 1.90 % [facility] Comment: Immature granulocytes(IG's)percentage and absolute count will include metamyelocytes, myelocytes, and promyelocytes. Blood smears from CBCs yielding IG's will be scanned manually for concordance. If this scan disagrees with the automated IG or if promyelocytes are noted, a manual differential will be performed. Patti Gran Abs 0.15(H) 0.00 - 0.04 x10(3)/ L [facility] Blood specimen (specimen) 07/28/2017 3:47 AM EDT 07/28/2017 3:58 AM EDT Narrative Resulting Agency Comment Spec In Lab Sriram Contreras MD HEMATOLOGY ORDERAB LES [facility] [place] [address] * (ABNORMAL) Hemogram (07/28/2017 3:47 AM EDT) WBC 8.0 4.0 - 9.5 x10(3)/[facility] LABORATORY RBC 4.43(L) 4.58 - 5.54 x10(6)/[facility] LABORATORY Hemoglobin 13.4(L) 13.7 - 16.5 gm/dL [facility] Hematocrit 40.3(L) 40.5 - 48.5 % [facility] MCV 91.0 82.9 - 93.1 [facility] LABORATORY MCH 30.2 27.5 - 32.1 pg [facility] MCHC 33.3 32.0 - 35.7 gm/dL [facility] Platelets 271 145 - 357 x10(3)/[facility] LABORATORY RDWSD 45.5(H) 36.0 - 45.0 [facility] LABORATORY RDWCV 13.8 11.4 - 13.8 % [facility] MPV 9.9 7.6 - 12.9 [facility] LABORATORY nRBC % Auto 0.0 % [facility] nRBC Abs Auto 0.000 0.000 - 0.000 x10(3)/[facility] LAB[facility]ORY Blood specimen (specimen) 07/28/2017 3:47 AM EDT 07/28/2017 3:58 AM EDT Narrative Resulting Agency Comment Spec In Lab rSiram Contreras MD HEMATOLOGY ORDERAB LES [facility] [place] [address] * Basic Metabolic Panel (non-fasting) (07/28/2017 3:47 AM EDT) Glucose Lvl 110 65 - 199 mg/dL [facility] Comment:Diabetes: >=200 mg/d L plus symptoms BUN 19 10 - 20 mg/dL [facility] Creatinine 0.96 0.80 - 1.50 mg/dL [facility] Comment: Please note that the pediatric reference intervals supplied above were not validated at [facility]. Results from pediatric patients should be interpreted in conjunction to the patient's age, height and muscle mass. Sodium 140 135 - 145 mmol/L [facility] Potassium 3.6 3.5 - 5.0 mmol/L [facility] Comment: Please note: ??Patients with WBC >100,000 may have falsely elevated Potassium levels. ??For accurate Potassium quantification in these patients send serum separator tube (gold top) for subsequent determinations. ??Contact the Clinical Chemistry Laboratory if there are any questions. Chloride 101 98 - 107 mmol/L [facility] CO2 24 22 - 31 mmol/L [facility] Anion Gap 15 5 - 15 mmol/L [facility] Calcium 8.9 8.5 - 10.5 mg/dL [facility] Estimated GFR >60 >=60 [facility] Comment: This estimated GFR (eGFR) value was calculated using the MDRD equation which has been validated on patients between the ages of 18 and 70. The MDRD should not be used to assess kidney function in patients < 18 years of age or in patients with extremes of body mass, or in patients with acute kidney failure. This value should be multiplied by 1.2 for patients. For further information please copy and paste the following links into your internet browser. [email or web address] Blood specimen (specimen) 07/28/2017 3:47 AM EDT 07/28/2017 3:58 AM EDT Narrative Resulting Agency Comment Spec In Lab Sriram Contreras MD CHEMISTRY ORDERABL ES Performing Organization Address [facility] de Phone Number [facility] [place] [address] * POCT Glucose (07/27/2017 11:52 PM EDT) [facility] POC Glucose 94 65 - 199 mg/dL [facility] Comment: Supplemental ranges: <140 mg/dL before meals <180 mg/dL all other times of the day Blood specimen (specimen) 07/27/2017 11:52 PM EDT 07/27/2017 11:52 PM EDT Sriram Contreras MD POINT OF CARE TEST ORDERABLES Performing Organization Address [facility] de Phone Number [facility] [place] [address] * Heparin, low molecular weight assay (07/27/2017 8:19 PM EDT) Heparin [id number] 0.67 IU/mL [facility] Comment: Guidelines for therapeutic unfractionated and low molecular weight heparin levels for the various formulations available in the are summarized below. Anti-Xa levels should be determined in a plasma sample that has been drawn approximately 3-5 hours after a dose of LMWH and after steady-state has been reached. DRUG ?Dosing Schedule ?Target Peak Steady- State ? Anti-Xa Levels (Units/mL) Unfractionated ?Continuous infusion ?0.3-0.7 heparin Enoxaparin ?Twice daily ?0.6-1.0 Enoxararin ?Once daily ? Unknown,likely 1.0-1.5 Dalteparin ?Once daily ? 1.05 Tinzaparin ?Once daily ? 0.85 Monitoring prophylactic dose LMWH is not routinely performed, thus guidelines for target peak anti-Xa levels are not available. Levels between 0.2 and 0.5 u/ml may be appropriate. Note: Most clinical trials in which low molecular weight heparins were used to treat acute venous thrombolism did not use target anti-Xa levels to guide dosing, hence therapeutic levels have been determined retrospectively and have not been shown to correlate with drug efficacy. Blood specimen (specimen) 07/27/2017 8:19 PM EDT 07/27/2017 8:23 PM EDT Narrative Resulting Agency Comment Spec In Lab Sriram Contreras MD HEMATOLOGY ORDERAB LES Performing Organization Address [facility] de Phone Number [facility] [place] [address] * POCT Glucose (07/27/2017 7:35 PM EDT) POC Glucose 118 65 - 199 mg/dL [facility] Comment: Supplemental ranges: <140 mg/dL before meals <180 mg/dL all other times of the day Blood specimen (specimen) 07/27/2017 7:35 PM EDT 07/27/2017 7:35 PM EDT Sriram Contreras MD POINT OF CARE TEST ORDERABLES Performing Organization Address [facility] de Phone Number [facility] [place] [address] * POCT Glucose (07/27/2017 3:28 PM EDT) POC Glucose 104 65 - 199 mg/dL [facility] Comment: Supplemental ranges: <140 mg/dL before meals <180 mg/dL all other times of the day Blood specimen (specimen) 07/27/2017 3:28 PM EDT 07/27/2017 3:28 PM EDT Sriram Contreras MD POINT OF CARE TEST ORDERABLES Performing Organization Address City/[facility]/ZIP Co de Phone Number [facility] [place] [address] * POCT Glucose (07/27/2017 11:06 AM EDT) POC Glucose 147 65 - 199 mg/dL [facility] Comment: Supplemental ranges: <140 mg/dL before meals <180 mg/dL all other times of the day Blood specimen (specimen) 07/27/2017 11:06 AM EDT 07/27/2017 11:06 AM EDT Sriram Contreras MD POINT OF CARE TEST ORDERABLES Performing Organization Address City/[facility]/ZIP Co de Phone Number [facility] [place] [address] * POCT Glucose (07/27/2017 7:25 AM EDT) POC Glucose 105 65 - 199 mg/dL [facility] Comment: Supplemental ranges: <140 mg/dL before meals <180 mg/dL all other times of the day Blood specimen (specimen) 07/27/2017 7:25 AM EDT 07/27/2017 7:25 AM EDT Sriram Contreras MD POINT OF CARE TEST ORDERABLES Performing Organization Address City/[facility] Co de Phone Number [facility] [place] [address] * Duplex Study for DVT, Bilat legs (07/27/2017 6:59 AM EDT) VB Text Report Department: Vascular Surgery Lab Patient: [id number] (JOSE LAWS) CPT: 96927 ICD10: I26.99 Referring Physician: SRIRAM CONTRERAS ?? Indications: s/p PE, ? DVT ICD10 Diagnosis Code: I26.99 RIGHT: Patent common femoral vein and popliteal vein with spontaneous, respirophasic Doppler waveforms that respond normally to augmentation maneuvers. The common femoral vein, saphenofemoral junction, femoral vein through the thigh and popliteal vein are fully compressible. Patent posterior tibial and peroneal veins with no evidence of thrombus. LEFT: Patent common femoral vein and popliteal vein with spontaneous, respirophasic Doppler waveforms that respond normally to augmentation maneuvers. The common femoral vein, saphenofemoral junction, femoral vein through the thigh and popliteal vein are fully compressible. Patent posterior tibial and peroneal veins with no evidence of thrombus. Interpretation: RIGHT: ??No evidence of lower extremity deep venous thrombosis. LEFT: ??No evidence of lower extremity deep venous thrombosis. Comparison: ??No previous study in our vascular lab database for comparison. Electronically Signed by: CECILIA LINARES on 2017-07-27 06:33:12 PM VASCU[facility] VB Text Report End of Report [facility] 07/27/2017 6:59 AM EDT Sriram Contreras MD VASCULAR ORDERABLE S Performing Organization Address [facility] Co de Phone Number [facility] * POCT Glucose (07/27/2017 3:52 AM EDT) POC Glucose 106 65 - 199 mg/dL [facility] Comment: Supplemental ranges: <140 mg/dL before meals <180 mg/dL all other times of the day Blood specimen (specimen) 07/27/2017 3:52 AM EDT 07/27/2017 3:52 AM EDT Sriram Contreras MD POINT OF CARE TEST ORDERABLES Performing Organization Address City/[facility]/ZIP Co de Phone Number [facility] [place] [address] * (ABNORMAL) APTT (07/27/2017 2:45 AM EDT) PTT 92(H) 25 - 35 sec [facility] Comment: The recommended therapeutic range for full dose, unfractionated heparin at [facility] is 80 ? 114 seconds. The use of the anti-Xa (heparin) level rather than the PTT is recommended for monitoring anticoagulation intensity in critically ill patients receiving unfractionated heparin by continuous IV infusion. Blood specimen (specimen) 07/27/2017 2:45 AM EDT 07/27/2017 2:55 AM EDT Narrative Resulting Agency Comment Spec In Lab Sriram Contreras MD HEMATOLOGY ORDERAB LES [facility] [place] [address] * (ABNORMAL) Differential, Automated (07/27/2017 2:45 AM EDT) Neutrophils % 67.8 % [facility] Neutr Abs (ANC) 8.40(H) 1.70 - 6.10 x10(3)/mc L [facility] Lymphocytes % 17.4 % [facility] Lymphocytes Abs 2.2 0.9 - 3.2 x10(3)/mc L [facility] Monocytes % 9.5 % [facility] Monocyte Abs 1.2(H) 0.3 - 0.9 x10(3)/mc L [facility] Eosinophils % 1.4 % [facility] Eosinophils Abs 0.2 0.0 - 0.4 x10(3)/mc L [facility] Basophils % 0.9 % [facility] Basophils Abs 0.1 0.0 - 0.1 x10(3)/mc L [facility] Immature Gran % 3.00 % [facility] Comment: Immature granulocytes(IG's)percentage and absolute count will include metamyelocytes, myelocytes, and promyelocytes. Blood smears from CBCs yielding IG's will be scanned manually for concordance. If this scan disagrees with the automated IG or if promyelocytes are noted, a manual differential will be performed. Patti Gran Abs 0.37(H) 0.00 - 0.04 x10(3)/ L [facility] Blood specimen (specimen) 07/27/2017 2:45 AM EDT 07/27/2017 2:55 AM EDT Narrative Resulting Agency Comment Spec In Lab Sriram Contreras MD HEMATOLOGY ORDERAB LES [facility] [place] [address] * (ABNORMAL) Hemogram (07/27/2017 2:45 AM EDT) WBC 12.4(H) 4.0 - 9.5 x10(3)/[facility] LABORATORY RBC 4.66 4.58 - 5.54 x10(6)/[facility] LAB[facility]ORY Hemoglobin 14.3 13.7 - 16.5 gm/dL [facility] Hematocrit 42.0 40.5 - 48.5 % [facility] MCV 90.1 82.9 - 93.1 [facility]ATORY MCH 30.7 27.5 - 32.1 pg [facility] MCHC 34.0 32.0 - 35.7 gm/dL [facility] Platelets 288 145 - 357 x10(3)/[facility] LABORATORY RDWSD 45.5(H) 36.0 - 45.0 [facility]ORY RDWCV 14.0(H) 11.4 - 13.8 % [facility] MPV 9.7 7.6 - 12.9 [facility] LAB[facility]ORY nRBC % Auto 0.0 % [facility] nRBC Abs Auto 0.000 0.000 - 0.000 x10(3)/[facility] Blood specimen (specimen) 07/27/2017 2:45 AM EDT 07/27/2017 2:55 AM EDT Narrative Resulting Agency Comment Spec In Lab Sriram Contreras MD HEMATOLOGY ORDERAB LES [facility] [place] [address] * (ABNORMAL) Basic Metabolic Panel (non-fasting) (07/27/2017 2:45 AM EDT) Glucose Lvl 169 65 - 199 mg/dL [facility] Comment:Diabetes: >=200 mg/d L plus symptoms BUN 22(H) 10 - 20 mg/dL [facility] Creatinine 0.92 0.80 - 1.50 mg/dL [facility] Comment: Please note that the pediatric reference intervals supplied above were not validated at [facility]. Results from pediatric patients should be interpreted in conjunction to the patient's age, height and muscle mass. Sodium 139 135 - 145 mmol/L [facility] Potassium 3.7 3.5 - 5.0 mmol/L [facility] Comment: Please note: ??Patients with WBC >100,000 may have falsely elevated Potassium levels. ??For accurate Potassium quantification in these patients send serum separator tube (gold top) for subsequent determinations. ??Contact the Clinical Chemistry Laboratory if there are any questions. Chloride 100 98 - 107 mmol/L [facility] CO2 23 22 - 31 mmol/L [facility] Anion Gap 16(H) 5 - 15 mmol/L [facility] Calcium 9.4 8.5 - 10.5 mg/dL [facility] Estimated GFR >60 >=60 [facility] Comment: This estimated GFR (eGFR) value was calculated using the MDRD equation which has been validated on patients between the ages of 18 and 70. The MDRD should not be used to assess kidney function in patients < 18 years of age or in patients with extremes of body mass, or in patients with acute kidney failure. This value should be multiplied by 1.2 for patients. For further information please copy and paste the following links into your internet browser. [email or web address] Blood specimen (specimen) 07/27/2017 2:45 AM EDT 07/27/2017 2:55 AM EDT Narrative Resulting Agency Comment Spec In Lab Sriram Contreras MD CHEMISTRY ORDERABL ES Performing Organization Address [facility] de Phone Number [facility] [place] [address] * Phosphorus (07/27/2017 2:45 AM EDT) Phosphorus 4.3 2.5 - 4.5 mg/dL [facility] Blood specimen (specimen) 07/27/2017 2:45 AM EDT 07/27/2017 2:55 AM EDT Narrative Resulting Agency Comment Spec In Lab Sriram Contreras MD CHEMISTRY ORDERABL ES Performing Organization Address [facility] Co de Phone Number [facility] [place] [address] * Magnesium (07/27/2017 2:45 AM EDT) Magnesium 0.79 0.69 - 1.07 mmol/L [facility] Blood specimen (specimen) 07/27/2017 2:45 AM EDT 07/27/2017 2:55 AM EDT Narrative Resulting Agency Comment Spec In Lab Sriram Contreras MD CHEMISTRY ORDERABL ES Performing Organization Address [facility] de Phone Number [facility] [place] [address] * POCT Glucose (07/27/2017 12:02 AM EDT) POC Glucose 112 65 - 199 mg/dL [facility] Comment: Supplemental ranges: <140 mg/dL before meals <180 mg/dL all other times of the day Blood specimen (specimen) 07/27/2017 12:02 AM EDT 07/27/2017 12:02 AM EDT Sriram Contreras MD POINT OF CARE TEST ORDERABLES Performing Organization Address [facility] Co de Phone Number [facility] [place] [address] * (ABNORMAL) APTT (07/26/2017 9:29 PM EDT) PTT 90(H) 25 - 35 sec [facility] Comment: The recommended therapeutic range for full dose, unfractionated heparin at [facility] is 80 ? 114 seconds. The use of the anti-Xa (heparin) level rather than the PTT is recommended for monitoring anticoagulation intensity in critically ill patients receiving unfractionated heparin by continuous IV infusion. Blood specimen (specimen) 07/26/2017 9:29 PM EDT 07/26/2017 9:32 PM EDT Narrative Resulting Agency Comment Spec In Lab Sriram Contreras MD HEMATOLOGY ORDERAB LES Performing Organization Address [facility] de Phone Number [facility] [place] [address] * POCT Glucose (07/26/2017 8:14 PM EDT) POC Glucose 116 65 - 199 mg/dL [facility] Comment: Supplemental ranges: <140 mg/dL before meals <180 mg/dL all other times of the day Blood specimen (specimen) 07/26/2017 8:14 PM EDT 07/26/2017 8:14 PM EDT Sriram Contreras MD POINT OF CARE TEST ORDERABLES Performing Organization Address [facility] Co de Phone Number [facility] [place] [address] * POCT Glucose (07/26/2017 3:20 PM EDT) POC Glucose 125 65 - 199 mg/dL [facility] Comment: Supplemental ranges: <140 mg/dL before meals <180 mg/dL all other times of the day Blood specimen (specimen) 07/26/2017 3:20 PM EDT 07/26/2017 3:20 PM EDT Sriram Contreras MD POINT OF CARE TEST ORDERABLES Performing Organization Address [facility] [facility] Co de Phone Number [facility] [place] [address] * (ABNORMAL) APTT (07/26/2017 1:51 PM EDT) PTT 88(H) 25 - 35 sec [facility] Comment: The recommended therapeutic range for full dose, unfractionated heparin at [facility] is 80 ? 114 seconds. The use of the anti-Xa (heparin) level rather than the PTT is recommended for monitoring anticoagulation intensity in critically ill patients receiving unfractionated heparin by continuous IV infusion. Blood specimen (specimen) 07/26/2017 1:51 PM EDT 07/26/2017 1:55 PM EDT Narrative Resulting Agency Comment Spec In Lab Sriram Contreras MD HEMATOLOGY ORDERAB LES Performing Organization Address [facility] Phone Number [facility] [place] [address] * POCT Glucose (07/26/2017 11:12 AM EDT) POC Glucose 120 65 - 199 mg/dL [facility] Comment: Supplemental ranges: <140 mg/dL before meals <180 mg/dL all other times of the day Blood specimen (specimen) 07/26/2017 11:12 AM EDT 07/26/2017 11:12 AM EDT Sriram Contreras MD POINT OF CARE TEST ORDERABLES Performing Organization Address [facility] Co de Phone Number [facility] [place] [address] * POCT Glucose (07/26/2017 7:35 AM EDT) POC Glucose 115 65 - 199 mg/dL [facility] Comment: Supplemental ranges: <140 mg/dL before meals <180 mg/dL all other times of the day Blood specimen (specimen) 07/26/2017 7:35 AM EDT 07/26/2017 7:35 AM EDT Sriram Contreras MD POINT OF CARE TEST ORDERABLES Performing Organization Address [facility] Co de Phone Number [facility] [place] [address] * (ABNORMAL) APTT (07/26/2017 3:30 AM EDT) [facility] PTT 60(H) 25 - 35 sec [facility] Comment: The recommended therapeutic range for full dose, unfractionated heparin at [facility] is 80 ? 114 seconds. The use of the anti-Xa (heparin) level rather than the PTT is recommended for monitoring anticoagulation intensity in critically ill patients receiving unfractionated heparin by continuous IV infusion. Blood specimen (specimen) 07/26/2017 3:30 AM EDT 07/26/2017 4:11 AM EDT Narrative Resulting Agency Comment Spec In Lab Sriram Contreras MD HEMATOLOGY ORDERAB LES Performing Organization Address [facility] de Phone Number [facility] [place] [address] * (ABNORMAL) Differential, Automated (07/26/2017 3:30 AM EDT) [facility] Neutrophils % 68.7 % [facility] Neutr Abs (ANC) 8.50(H) 1.70 - 6.10 x10(3)/mc L [facility] Lymphocytes % 14.3 % [facility] Lymphocytes Abs 1.8 0.9 - 3.2 x10(3)/mc L [facility] Monocytes % 9.6 % [facility] Monocyte Abs 1.2(H) 0.3 - 0.9 x10(3)/mc L [facility] Eosinophils % 1.3 % [facility] Eosinophils Abs 0.2 0.0 - 0.4 x10(3)/[facility] LABORATORY Basophils % 1.4 % [facility] Basophils Abs 0.2(H) 0.0 - 0.1 x10(3)/[facility] LABORATORY Immature Gran % 4.70 % [facility] Comment: Immature granulocytes(IG's)percentage and absolute count will include metamyelocytes, myelocytes, and promyelocytes. Blood smears from CBCs yielding IG's will be scanned manually for concordance. If this scan disagrees with the automated IG or if promyelocytes are noted, a manual differential will be performed. Patti Gran Abs 0.58(H) 0.00 - 0.04 x10(3)/[facility] LABOR[facility] Blood specimen (specimen) 07/26/2017 3:30 AM EDT 07/26/2017 4:11 AM EDT Narrative Resulting Agency Comment Spec In Lab Sriram Contreras MD HEMATOLOGY ORDERAB LES [facility] [place] [address] * (ABNORMAL) Hemogram (07/26/2017 3:30 AM EDT) WBC 12.4(H) 4.0 - 9.5 x10(3)/[facility] LABORATORY RBC 4.87 4.58 - 5.54 x10(6)/[facility] LAB[facility]ORY Hemoglobin 15.2 13.7 - 16.5 gm/dL [facility] Hematocrit 44.1 40.5 - 48.5 % [facility] MCV 90.6 82.9 - 93.1 fL [facility] MCH 31.2 27.5 - 32.1 pg [facility] MCHC 34.5 32.0 - 35.7 gm/dL [facility] Platelets 253 145 - 357 x10(3)/[facility] LABORATORY RDWSD 44.8 36.0 - 45.0 fL [facility] RDWCV 13.6 11.4 - 13.8 % [facility] MPV 10.4 7.6 - 12.9 fL [facility] nRBC % Auto 0.2 % [facility] nRBC Abs Auto 0.020(H) 0.000 - 0.000 x10(3)/[facility] LAB[facility]ATORY Blood specimen (specimen) 07/26/2017 3:30 AM EDT 07/26/2017 4:11 AM EDT Narrative Resulting Agency Comment Spec In Lab Sriram Contreras MD HEMATOLOGY ORDERAB LES [facility] [place] [address] * Basic Metabolic Panel (non-fasting) (07/26/2017 3:30 AM EDT) Glucose Lvl 123 65 - 199 mg/dL [facility] Comment:Diabetes: >=200 mg/d L plus symptoms BUN 18 10 - 20 mg/dL [facility] Creatinine 0.85 0.80 - 1.50 mg/dL [facility] Comment: Please note that the pediatric reference intervals supplied above were not validated at [facility]. Results from pediatric patients should be interpreted in conjunction to the patient's age, height and muscle mass. Sodium 141 135 - 145 mmol/L [facility] Potassium 3.8 3.5 - 5.0 mmol/L [facility] Comment: Please note: ??Patients with WBC >100,000 may have falsely elevated Potassium levels. ??For accurate Potassium quantification in these patients send serum separator tube (gold top) for subsequent determinations. ??Contact the Clinical Chemistry Laboratory if there are any questions. Chloride 102 98 - 107 mmol/L [facility] CO2 25 22 - 31 mmol/L [facility] Anion Gap 14 5 - 15 mmol/L [facility] Calcium 9.2 8.5 - 10.5 mg/dL [facility] Estimated GFR >60 >=60 [facility] Comment: This estimated GFR (eGFR) value was calculated using the MDRD equation which has been validated on patients between the ages of 18 and 70. The MDRD should not be used to assess kidney function in patients < 18 years of age or in patients with extremes of body mass, or in patients with acute kidney failure. This value should be multiplied by 1.2 for patients. For further information please copy and paste the following links into your internet browser. [email or web address] Blood specimen (specimen) 07/26/2017 3:30 AM EDT 07/26/2017 4:11 AM EDT Narrative Resulting Agency Comment Spec In Lab Sriram Contreras MD CHEMISTRY ORDERABL ES Performing Organization Address [facility] Co de Phone Number [facility] [place] [address] * Prealbumin (07/26/2017 3:30 AM EDT) Prealbumin 26 20 - 40 mg/dL [facility] Comment: Prealbumin levels are generally lower in the pediatric population; adult concentrations are usually attained near puberty. Blood specimen (specimen) 07/26/2017 3:30 AM EDT 07/26/2017 4:11 AM EDT Narrative Resulting Agency Comment Spec In Lab Sriram Contreras MD CHEMISTRY ORDERABL ES Performing Organization Address City/[facility]/ZIP Co de Phone Number [facility] [place] [address] * POCT Glucose (07/26/2017 3:27 AM EDT) POC Glucose 116 65 - 199 mg/dL [facility] Comment: Supplemental ranges: <140 mg/dL before meals <180 mg/dL all other times of the day Blood specimen (specimen) 07/26/2017 3:27 AM EDT 07/26/2017 3:27 AM EDT Sriram Contreras MD POINT OF CARE TEST ORDERABLES Performing Organization Address [facility] Co de Phone Number [facility] [place] [address] * POCT Glucose (07/25/2017 7:50 PM EDT) POC Glucose 109 65 - 199 mg/dL [facility] Comment: Supplemental ranges: <140 mg/dL before meals <180 mg/dL all other times of the day Blood specimen (specimen) 07/25/2017 7:50 PM EDT 07/25/2017 7:50 PM EDT Sriram Contreras MD POINT OF CARE TEST ORDERABLES Performing Organization Address [facility] Phone Number [facility] [place] [address] * (ABNORMAL) APTT (07/25/2017 5:51 PM EDT) PTT 112(H) 25 - 35 sec [facility] Comment: The recommended therapeutic range for full dose, unfractionated heparin at [facility] is 80 ? 114 seconds. The use of the anti-Xa (heparin) level rather than the PTT is recommended for monitoring anticoagulation intensity in critically ill patients receiving unfractionated heparin by continuous IV infusion. Blood specimen (specimen) 07/25/2017 5:51 PM EDT 07/25/2017 5:55 PM EDT Narrative Resulting Agency Comment Spec In Lab Sriram Contreras MD HEMATOLOGY ORDERAB LES Performing Organization Address [facility] Co de Phone Number [facility] [place] [address] * POCT Glucose (07/25/2017 4:01 PM EDT) POC Glucose 109 65 - 199 mg/dL [facility] Comment: Supplemental ranges: <140 mg/dL before meals <180 mg/dL all other times of the day Blood specimen (specimen) 07/25/2017 4:01 PM EDT 07/25/2017 4:01 PM EDT Sriram Contreras MD POINT OF CARE TEST ORDERABLES Performing Organization Address [facility] Co de Phone Number [facility] [place] [address] * POCT Glucose (07/25/2017 12:10 PM EDT) POC Glucose 117 65 - 199 mg/dL [facility] Comment: Supplemental ranges: <140 mg/dL before meals <180 mg/dL all other times of the day Blood specimen (specimen) 07/25/2017 12:10 PM EDT 07/25/2017 12:10 PM EDT Sriram Contreras MD POINT OF CARE TEST ORDERABLES Performing Organization Address [facility] de Phone Number [facility] [place] [address] * Potassium (07/25/2017 11:00 AM EDT) Potassium 3.9 3.5 - 5.0 mmol/L [facility] Comment: Please note: ??Patients with WBC >100,000 may have falsely elevated Potassium levels. ??For accurate Potassium quantification in these patients send serum separator tube (gold top) for subsequent determinations. ??Contact the Clinical Chemistry Laboratory if there are any questions. Blood specimen (specimen) 07/25/2017 11:00 AM EDT 07/25/2017 11:05 AM EDT Narrative Resulting Agency Comment Spec In Lab Srriam Contreras MD CHEMISTRY ORDERABL ES Performing Organization Address [facility] Co de Phone Number [facility] [place] [address] * (ABNORMAL) APTT (07/25/2017 11:00 AM EDT) PTT 102(H) 25 - 35 sec [facility] Comment: The recommended therapeutic range for full dose, unfractionated heparin at [facility] is 80 ? 114 seconds. The use of the anti-Xa (heparin) level rather than the PTT is recommended for monitoring anticoagulation intensity in critically ill patients receiving unfractionated heparin by continuous IV infusion. Blood specimen (specimen) 07/25/2017 11:00 AM EDT 07/25/2017 11:05 AM EDT Narrative Resulting Agency Comment Spec In Lab Sriram oCntreras MD HEMATOLOGY ORDERAB LES Performing Organization Address [facility] Co de Phone Number [facility] [place] [address] * POCT Glucose (07/25/2017 8:27 AM EDT) [facility] POC Glucose 124 65 - 199 mg/dL [facility] Comment: Supplemental ranges: <140 mg/dL before meals <180 mg/dL all other times of the day Blood specimen (specimen) 07/25/2017 8:27 AM EDT 07/25/2017 8:27 AM EDT Sriram Contreras MD POINT OF CARE TEST ORDERABLES Performing Organization Address [facility] Co de Phone Number [facility] [place] [address] * (ABNORMAL) BLOOD GAS 2 ARTERIAL (07/25/2017 6:19 AM EDT) pH Art 7.51(H) 7.35 - 7.45 [facility] pCO2 Art 29(L) 35 - 45 mmHg [facility] pO2 Art 59(L) 85 - 104 mmHg [facility] HCO3 Art 22.2 20.0 - 26.0 mmol/L [facility] BE Art -0.9 -3.0 - 3.0 mmol/L [facility] Hgb Blood Gas 14.6 13.7 - 16.5 gm/dL [facility] O2HB Art 91.1(L) 94.0 - 97.0 % [facility] COHB Art 0.3 % [facility] Comment: Nonsmokers: 0.5-1.5% COHB Smokers: Variable, but usually less than 10% Toxic: 20-30% COHB Lethal: Greater than 60% COHB METHB Art 0.6 <=1.5 % [facility] Na Whole Blood 141 135 - 145 mmol/L [facility] K Whole Blood 3.8 3.5 - 5.0 mmol/L [facility] Comment: Please note: Patients with WBC >100,000 may have falsely elevated Potassium levels. Contact the Clinical Chemistry Laboratory if there are any questions. ICa Whole Blood 1.17 1.15 - 1.33 mmol/L [facility] Comment: Note: ??Total bilirubin higher than 20 mg/dL may lead to falsely low ionized calcium. CL Whole Blood 108(H) 98 - 107 mmol/L [facility] Gluc Whole Bld 136 65 - 199 mg/dL [facility] Comment:Diabetes: >=200 mg/d L plus symptoms. Lactate WB 1.5 0.5 - 2.2 mmol/L [facility] Blood specimen (specimen) 07/25/2017 6:19 AM EDT 07/25/2017 6:19 AM EDT Sriram Contreras MD CHEMISTRY ORDERABL ES [facility] [place] [address] * POCT Glucose (07/25/2017 4:41 AM EDT) POC Glucose 101 65 - 199 mg/dL [facility] Comment: Supplemental ranges: <140 mg/dL before meals <180 mg/dL all other times of the day Blood specimen (specimen) 07/25/2017 4:41 AM EDT 07/25/2017 4:41 AM EDT Sriram Contreras MD POINT OF CARE TEST ORDERABLES Performing Organization Address City/[facility]/ZIP Co de Phone Number [facility] [place] [address] * Magnesium (07/25/2017 4:37 AM EDT) Pathologist [facility] Magnesium 0.83 0.69 - 1.07 mmol/L [facility] Blood specimen (specimen) Venous Draw / Unknown 07/25/2017 4:37 AM EDT 07/25/2017 4:50 AM EDT Narrative Resulting Agency Comment Spec In Lab Sriram Contreras MD CHEMISTRY ORDERABL ES Performing Organization Address [facility] Co de Phone Number [facility] [place] [address] * (ABNORMAL) Differential, Automated (07/25/2017 4:37 AM EDT) [facility] Neutrophils % 68.4 % [facility] Neutr Abs (ANC) 8.77(H) 1.70 - 6.10 x10(3)/mc L [facility] Lymphocytes % 15.0 % [facility] Lymphocytes Abs 1.9 0.9 - 3.2 x10(3)/[facility] LABORATORY Monocytes % 8.9 % [facility] Monocyte Abs 1.1(H) 0.3 - 0.9 x10(3)/mc L [facility] Eosinophils % 1.9 % [facility] Eosinophils Abs 0.2 0.0 - 0.4 x10(3)/mc L [facility] Basophils % 1.0 % [facility] Basophils Abs 0.1 0.0 - 0.1 x10(3)/ L [facility] Immature Gran % 4.80 % [facility] Comment: Immature granulocytes(IG's)percentage and absolute count will include metamyelocytes, myelocytes, and promyelocytes. Blood smears from CBCs yielding IG's will be scanned manually for concordance. If this scan disagrees with the automated IG or if promyelocytes are noted, a manual differential will be performed. Patti Gran Abs 0.62(H) 0.00 - 0.04 x10(3)/mc L [facility] Blood specimen (specimen) 07/25/2017 4:37 AM EDT 07/25/2017 4:48 AM EDT Narrative Resulting Agency Comment Spec In Lab Sriram Contreras MD HEMATOLOGY ORDERAB LES [facility] [place] [address] * (ABNORMAL) Hemogram (07/25/2017 4:37 AM EDT) WBC 12.8(H) 4.0 - 9.5 x10(3)/[facility] LABORATORY RBC 4.53(L) 4.58 - 5.54 x10(6)/[facility] LABORATORY Hemoglobin 14.0 13.7 - 16.5 gm/dL [facility] Hematocrit 40.3(L) 40.5 - 48.5 % [facility] MCV 89.0 82.9 - 93.1 [facility] LABORATORY MCH 30.9 27.5 - 32.1 pg [facility] MCHC 34.7 32.0 - 35.7 gm/dL [facility] Platelets 241 145 - 357 x10(3)/[facility] RDWSD 43.1 36.0 - 45.0 [facility] LABORATORY RDWCV 13.2 11.4 - 13.8 % [facility] MPV 9.9 7.6 - 12.9 [facility] LABORATORY nRBC % Auto 0.0 % [facility] nRBC Abs Auto 0.000 0.000 - 0.000 x10(3)/mcL [facility] Blood specimen (specimen) 07/25/2017 4:37 AM EDT 07/25/2017 4:48 AM EDT Narrative Resulting Agency Comment Spec In Lab Sriram Contreras MD HEMATOLOGY ORDERAB LES [facility] [place] [address] * Basic Metabolic Panel (non-fasting) (07/25/2017 4:37 AM EDT) Glucose Lvl 120 65 - 199 mg/dL [facility] Comment:Diabetes: >=200 mg/d L plus symptoms BUN 14 10 - 20 mg/dL [facility] Creatinine 0.81 0.80 - 1.50 mg/dL [facility] Comment: Please note that the pediatric reference intervals supplied above were not validated at [facility]. Results from pediatric patients should be interpreted in conjunction to the patient's age, height and muscle mass. Sodium 140 135 - 145 mmol/L [facility] Potassium 3.6 3.5 - 5.0 mmol/L [facility] Comment: Please note: ??Patients with WBC >100,000 may have falsely elevated Potassium levels. ??For accurate Potassium quantification in these patients send serum separator tube (gold top) for subsequent determinations. ??Contact the Clinical Chemistry Laboratory if there are any questions. Chloride 103 98 - 107 mmol/L [facility] CO2 24 22 - 31 mmol/L [facility] Anion Gap 13 5 - 15 mmol/L [facility] Calcium 8.8 8.5 - 10.5 mg/dL [facility] Estimated GFR >60 >=60 [facility] Comment: This estimated GFR (eGFR) value was calculated using the MDRD equation which has been validated on patients between the ages of 18 and 70. The MDRD should not be used to assess kidney function in patients < 18 years of age or in patients with extremes of body mass, or in patients with acute kidney failure. This value should be multiplied by 1.2 for patients. For further information please copy and paste the following links into your internet browser. [email or web address] Blood specimen (specimen) 07/25/2017 4:37 AM EDT 07/25/2017 4:48 AM EDT Narrative Resulting Agency Comment Spec In Lab Sriram Contreras MD CHEMISTRY ORDERABL ES Performing Organization Address [facility] de Phone Number [facility] [place] [address] * (ABNORMAL) APTT (07/25/2017 4:37 AM EDT) PTT 122(H) 25 - 35 sec [facility] Comment: The recommended therapeutic range for full dose, unfractionated heparin at [facility] is 80 ? 114 seconds. The use of the anti-Xa (heparin) level rather than the PTT is recommended for monitoring anticoagulation intensity in critically ill patients receiving unfractionated heparin by continuous IV infusion. Blood specimen (specimen) 07/25/2017 4:37 AM EDT 07/25/2017 4:48 AM EDT Narrative Resulting Agency Comment Spec In Lab Sriram Contreras MD HEMATOLOGY ORDERAB LES Performing Organization Address [facility] de Phone Number [facility] [place] [address] * POCT Glucose (07/25/2017 12:10 AM EDT) POC Glucose 108 65 - 199 mg/dL [facility] Comment: Supplemental ranges: <140 mg/dL before meals <180 mg/dL all other times of the day Blood specimen (specimen) 07/25/2017 12:10 AM EDT 07/25/2017 12:10 AM EDT Sriram Contreras MD POINT OF CARE TEST ORDERABLES Performing Organization Address [facility] de Phone Number [facility] [place] [address] * POCT Glucose (07/24/2017 8:05 PM EDT) POC Glucose 112 65 - 199 mg/dL [facility] Comment: Supplemental ranges: <140 mg/dL before meals <180 mg/dL all other times of the day Blood specimen (specimen) 07/24/2017 8:05 PM EDT 07/24/2017 8:05 PM EDT Sriram Contreras MD POINT OF CARE TEST ORDERABLES [facility] [place] [address] * POCT Glucose (07/24/2017 8:04 PM EDT) POC Glucose 106 65 - 199 mg/dL [facility] Comment: Supplemental ranges: <140 mg/dL before meals <180 mg/dL all other times of the day Blood specimen (specimen) 07/24/2017 8:04 PM EDT 07/24/2017 8:04 PM EDT Sriram Contreras MD POINT OF CARE TEST ORDERABLES [facility] [place] [address] * POCT Glucose (07/24/2017 3:42 PM EDT) POC Glucose 108 65 - 199 mg/dL [facility] Comment: Supplemental ranges: <140 mg/dL before meals <180 mg/dL all other times of the day Blood specimen (specimen) 07/24/2017 3:42 PM EDT 07/24/2017 3:42 PM EDT Sriram Contreras MD POINT OF CARE TEST ORDERABLES [facility] [place] [address] * POCT Glucose (07/24/2017 11:42 AM EDT) POC Glucose 102 65 - 199 mg/dL [facility] Comment: Supplemental ranges: <140 mg/dL before meals <180 mg/dL all other times of the day Blood specimen (specimen) 07/24/2017 11:42 AM EDT 07/24/2017 11:42 AM EDT Sriram Contreras MD POINT OF CARE TEST ORDERABLES Performing Organization Address City/[facility] Co de Phone Number [facility] [place] [address] * POCT Glucose (07/24/2017 8:00 AM EDT) [facility] POC Glucose 107 65 - 199 mg/dL [facility] Comment: Supplemental ranges: <140 mg/dL before meals <180 mg/dL all other times of the day Blood specimen (specimen) 07/24/2017 8:00 AM EDT 07/24/2017 8:00 AM EDT Sriram Contreras MD POINT OF CARE TEST ORDERABLES Performing Organization Address [facility] Co de Phone Number [facility] [place] [phone] * (ABNORMAL) BLOOD GAS 2 ARTERIAL (07/24/2017 7:28 AM EDT) Pathologist [facility] pH Art 7.44 7.35 - 7.45 [facility] pCO2 Art 39 35 - 45 mmHg [facility] pO2 Art 67(L) 85 - 104 mmHg [facility] HCO3 Art 25.5 20.0 - 26.0 mmol/L [facility] BE Art 1.2 -3.0 - 3.0 mmol/L [facility] Hgb Blood Gas 13.8 13.7 - 16.5 gm/dL [facility] O2HB Art 92.8(L) 94.0 - 97.0 % [facility] COHB Art 0.3 % [facility] Comment: Nonsmokers: 0.5-1.5% COHB Smokers: Variable, but usually less than 10% Toxic: 20-30% COHB Lethal: Greater than 60% COHB METHB Art 0.6 <=1.5 % [facility] Na Whole Blood 139 135 - 145 mmol/L [facility] K Whole Blood 4.0 3.5 - 5.0 mmol/L [facility] Comment: Please note: Patients with WBC >100,000 may have falsely elevated Potassium levels. Contact the Clinical Chemistry Laboratory if there are any questions. ICa Whole Blood 1.21 1.15 - 1.33 mmol/L [facility] Comment: Note: ??Total bilirubin higher than 20 mg/dL may lead to falsely low ionized calcium. CL Whole Blood 105 98 - 107 mmol/L [facility] Gluc Whole Bld 123 65 - 199 mg/dL [facility] Comment:Diabetes: >=200 mg/d L plus symptoms. Lactate WB 1.7 0.5 - 2.2 mmol/L [facility] FIO2 Art 30 % [facility] PF Ratio Art 223 [facility] Blood specimen (specimen) 07/24/2017 7:28 AM EDT 07/24/2017 7:28 AM EDT Sriram Contreras MD CHEMISTRY ORDERABL ES Performing Organization Address City/State/[facility] Co de Phone Number [facility] [place] [address] * Potassium (07/24/2017 7:28 AM EDT) Potassium 4.1 3.5 - 5.0 mmol/L [facility] Comment: Please note: ??Patients with WBC >100,000 may have falsely elevated Potassium levels. ??For accurate Potassium quantification in these patients send serum separator tube (gold top) for subsequent determinations. ??Contact the Clinical Chemistry Laboratory if there are any questions. Blood specimen (specimen) 07/24/2017 7:28 AM EDT 07/24/2017 7:35 AM EDT Narrative Resulting Agency Comment Spec In Lab Sriram Contreras MD CHEMISTRY ORDERABL ES Performing Organization Address [facility] Co de Phone Number [facility] [place] [address] * POCT Glucose (07/24/2017 3:42 AM EDT) Pathologist [facility] POC Glucose 91 65 - 199 mg/dL [facility] Comment: Supplemental ranges: <140 mg/dL before meals <180 mg/dL all other times of the day Blood specimen (specimen) 07/24/2017 3:42 AM EDT 07/24/2017 3:42 AM EDT Sriram Contreras MD POINT OF CARE TEST ORDERABLES Performing Organization Address [facility] de Phone Number [facility] [place] [address] * Scan, Peripheral Blood (07/24/2017 1:00 AM EDT) Pathologist [facility] Plat Estimate Normal [facility] RBC Morphology Normal [facility] Blood specimen (specimen) Venous Draw / Unknown 07/24/2017 1:00 AM EDT 07/24/2017 1:15 AM EDT Narrative Resulting Agency Comment Spec In Lab Sriram Contreras MD HEMATOLOGY ORDERAB LES Performing Organization Address [facility] Co de Phone Number [facility] [place] [address] * (ABNORMAL) Differential, Automated (07/24/2017 1:00 AM EDT) Pathologist [facility] Neutrophils % 69.9 % [facility] Neutr Abs (ANC) 9.34(H) 1.70 - 6.10 x10(3)/mc L [facility] Lymphocytes % 13.7 % [facility] Lymphocytes Abs 1.8 0.9 - 3.2 x10(3)/[facility] Monocytes % 8.1 % [facility] Monocyte Abs 1.1(H) 0.3 - 0.9 x10(3)/[facility] Eosinophils % 2.2 % [facility] Eosinophils Abs 0.3 0.0 - 0.4 x10(3)/[facility] Basophils % 0.7 % [facility] Basophils Abs 0.1 0.0 - 0.1 x10(3)/[facility] Immature Gran % 5.40 % [facility] Comment: Immature granulocytes(IG's)percentage and absolute count will include metamyelocytes, myelocytes, and promyelocytes. Blood smears from CBCs yielding IG's will be scanned manually for concordance. If this scan disagrees with the automated IG or if promyelocytes are noted, a manual differential will be performed. Patti Gran Abs 0.72(H) 0.00 - 0.04 x10(3)/[facility] Blood specimen (specimen) 07/24/2017 1:00 AM EDT 07/24/2017 1:15 AM EDT Narrative Resulting Agency Comment Spec In Lab Sriram Contreras MD HEMATOLOGY ORDERAB LES Performing Organization Address City/State/[facility] Co de Phone Number [facility] [place] [address] * (ABNORMAL) Hemogram (07/24/2017 1:00 AM EDT) WBC 13.4(H) 4.0 - 9.5 x10(3)/[facility] RBC 4.13(L) 4.58 - 5.54 x10(6)/[facility] Hemoglobin 12.7(L) 13.7 - 16.5 gm/dL [facility] Hematocrit 38.0(L) 40.5 - 48.5 % [facility] MCV 92.0 82.9 - 93.1 [facility] MCH 30.8 27.5 - 32.1 pg [facility] MCHC 33.4 32.0 - 35.7 gm/dL [facility] Platelets 201 145 - 357 x10(3)/[facility] RDWSD 45.5(H) 36.0 - 45.0 [facility] RDWCV 13.4 11.4 - 13.8 % [facility] MPV 10.1 7.6 - 12.9 [facility] nRBC % Auto 0.0 % [facility] nRBC Abs Auto 0.000 0.000 - 0.000 x10(3)/[facility] Blood specimen (specimen) 07/24/2017 1:00 AM EDT 07/24/2017 1:15 AM EDT Narrative Resulting Agency Comment Spec In Lab Sriram Contreras MD HEMATOLOGY ORDERAB LES Performing Organization Address [facility] Co de Phone Number [facility] [place] [address] * (ABNORMAL) APTT (07/24/2017 1:00 AM EDT) PTT 102(H) 25 - 35 sec [facility] Comment: The recommended therapeutic range for full dose, unfractionated heparin at [facility] is 80 ? 114 seconds. The use of the anti-Xa (heparin) level rather than the PTT is recommended for monitoring anticoagulation intensity in critically ill patients receiving unfractionated heparin by continuous IV infusion. Blood specimen (specimen) 07/24/2017 1:00 AM EDT 07/24/2017 1:14 AM EDT Narrative Resulting Agency Comment Spec In Lab Sriram Contreras MD HEMATOLOGY ORDERAB LES Performing Organization Address [facility] Co de Phone Number [facility] [place] [address] * (ABNORMAL) Basic Metabolic Panel (non-fasting) (07/24/2017 1:00 AM EDT) Glucose Lvl 103 65 - 199 mg/dL [facility] Comment:Diabetes: >=200 mg/d L plus symptoms BUN 17 10 - 20 mg/dL [facility] Creatinine 0.70(L) 0.80 - 1.50 mg/dL [facility] Comment: Please note that the pediatric reference intervals supplied above were not validated at [facility]. Results from pediatric patients should be interpreted in conjunction to the patient's age, height and muscle mass. Sodium 143 135 - 145 mmol/L [facility] Potassium 4.0 3.5 - 5.0 mmol/L [facility] Comment: Please note: ??Patients with WBC >100,000 may have falsely elevated Potassium levels. ??For accurate Potassium quantification in these patients send serum separator tube (gold top) for subsequent determinations. ??Contact the Clinical Chemistry Laboratory if there are any questions. Chloride 104 98 - 107 mmol/L [facility] CO2 27 22 - 31 mmol/L [facility] Anion Gap 12 5 - 15 mmol/L [facility] Calcium 8.7 8.5 - 10.5 mg/dL [facility] Estimated GFR >60 >=60 [facility] Comment: This estimated GFR (eGFR) value was calculated using the MDRD equation which has been validated on patients between the ages of 18 and 70. The MDRD should not be used to assess kidney function in patients < 18 years of age or in patients with extremes of body mass, or in patients with acute kidney failure. This value should be multiplied by 1.2 for patients. For further information please copy and paste the following links into your internet browser. [email or web address] Blood specimen (specimen) 07/24/2017 1:00 AM EDT 07/24/2017 1:14 AM EDT Narrative Resulting Agency Comment Spec In Lab Sriram Contreras MD CHEMISTRY ORDERABL ES Performing Organization Address [facility] Co de Phone Number [facility] [place] [address] * POCT Glucose (07/23/2017 11:53 PM EDT) POC Glucose 95 65 - 199 mg/dL [facility] Comment: Supplemental ranges: <140 mg/dL before meals <180 mg/dL all other times of the day Blood specimen (specimen) 07/23/2017 11:53 PM EDT 07/23/2017 11:53 PM EDT Sriram Contreras MD POINT OF CARE TEST ORDERABLES Performing Organization Address [facility] de Phone Number [facility] [place] [address] * POCT Glucose (07/23/2017 7:52 PM EDT) POC Glucose 91 65 - 199 mg/dL [facility] Comment: Supplemental ranges: <140 mg/dL before meals <180 mg/dL all other times of the day Blood specimen (specimen) 07/23/2017 7:52 PM EDT 07/23/2017 7:52 PM EDT Sriram Contreras MD POINT OF CARE TEST ORDERABLES Performing Organization Address [facility] Co de Phone Number [facility] [place] [address] * POCT Glucose (07/23/2017 2:56 PM EDT) POC Glucose 115 65 - 199 mg/dL [facility] Comment: Supplemental ranges: <140 mg/dL before meals <180 mg/dL all other times of the day Blood specimen (specimen) 07/23/2017 2:56 PM EDT 07/23/2017 2:56 PM EDT Sriram Contrears MD POINT OF CARE TEST ORDERABLES Performing Organization Address City/[facility] Co de Phone Number [facility] [place] [address] * (ABNORMAL) APTT (07/23/2017 2:55 PM EDT) PTT 101(H) 25 - 35 sec [facility] Comment: The recommended therapeutic range for full dose, unfractionated heparin at [facility] is 80 ? 114 seconds. The use of the anti-Xa (heparin) level rather than the PTT is recommended for monitoring anticoagulation intensity in critically ill patients receiving unfractionated heparin by continuous IV infusion. Blood specimen (specimen) 07/23/2017 2:55 PM EDT 07/23/2017 3:04 PM EDT Narrative Resulting Agency Comment Spec In Lab Sriram Contreras MD HEMATOLOGY ORDERAB LES Performing Organization Address [facility] Co de Phone Number [facility] [place] [address] * POCT Glucose (07/23/2017 12:07 PM EDT) [facility] POC Glucose 97 65 - 199 mg/dL [facility] Comment: Supplemental ranges: <140 mg/dL before meals <180 mg/dL all other times of the day Blood specimen (specimen) 07/23/2017 12:07 PM EDT 07/23/2017 12:07 PM EDT Sriram Contreras MD POINT OF CARE TEST ORDERABLES Performing Organization Address City/[facility] Co de Phone Number [facility] [place] [address] * (ABNORMAL) APTT (07/23/2017 8:27 AM EDT) PTT 95(H) 25 - 35 sec [facility] Comment: The recommended therapeutic range for full dose, unfractionated heparin at [facility] is 80 ? 114 seconds. The use of the anti-Xa (heparin) level rather than the PTT is recommended for monitoring anticoagulation intensity in critically ill patients receiving unfractionated heparin by continuous IV infusion. Blood specimen (specimen) 07/23/2017 8:27 AM EDT 07/23/2017 8:51 AM EDT Narrative Resulting Agency Comment Spec In Lab Sriram Contreras MD HEMATOLOGY ORDERAB LES Performing Organization Address City/[facility]/ZIP Co de Phone Number [facility] [place] [address] * POCT Glucose (07/23/2017 8:02 AM EDT) Pathologist [facility] POC Glucose 103 65 - 199 mg/dL [facility] Comment: Supplemental ranges: <140 mg/dL before meals <180 mg/dL all other times of the day Blood specimen (specimen) 07/23/2017 8:02 AM EDT 07/23/2017 8:02 AM EDT Sriram Contreras MD POINT OF CARE TEST ORDERABLES Performing Organization Address City/[facility] Co de Phone Number [facility] [place] [address] * (ABNORMAL) BLOOD GAS 2 ARTERIAL (07/23/2017 6:32 AM EDT) pH Art 7.41 7.35 - 7.45 [facility] pCO2 Art 37 35 - 45 mmHg [facility] pO2 Art 60(L) 85 - 104 mmHg [facility] HCO3 Art 22.6 20.0 - 26.0 mmol/L [facility] BE Art -2.0 -3.0 - 3.0 mmol/L [facility] Hgb Blood Gas 12.7(L) 13.7 - 16.5 gm/dL [facility] O2HB Art 90.3(L) 94.0 - 97.0 % [facility] COHB Art 0.3 % [facility] Comment: Nonsmokers: 0.5-1.5% COHB Smokers: Variable, but usually less than 10% Toxic: 20-30% COHB Lethal: Greater than 60% COHB METHB Art 0.5 <=1.5 % [facility] Na Whole Blood 138 135 - 145 mmol/L [facility] K Whole Blood 3.7 3.5 - 5.0 mmol/L [facility] Comment: Please note: Patients with WBC >100,000 may have falsely elevated Potassium levels. Contact the Clinical Chemistry Laboratory if there are any questions. ICa Whole Blood 1.15(L) 1.15 - 1.33 mmol/L [facility] Comment: Note: ??Total bilirubin higher than 20 mg/dL may lead to falsely low ionized calcium. CL Whole Blood 109(H) 98 - 107 mmol/L [facility] Gluc Whole Bld 122 65 - 199 mg/dL [facility] Comment:Diabetes: >=200 mg/d L plus symptoms. Lactate WB 1.4 0.5 - 2.2 mmol/L [facility] FIO2 Art 30 % [facility] PF Ratio Art 200 [facility] Blood specimen (specimen) 07/23/2017 6:32 AM EDT 07/23/2017 6:32 AM EDT Sriram Contreras MD CHEMISTRY ORDERABL ES Performing Organization Address City/[facility] de Phone Number [facility] [place] [address] * Potassium (07/23/2017 4:15 AM EDT) Potassium 4.1 3.5 - 5.0 mmol/L [facility] Comment: Please note: ??Patients with WBC >100,000 may have falsely elevated Potassium levels. ??For accurate Potassium quantification in these patients send serum separator tube (gold top) for subsequent determinations. ??Contact the Clinical Chemistry Laboratory if there are any questions. Blood specimen (specimen) 07/23/2017 4:15 AM EDT 07/23/2017 4:19 AM EDT Narrative Resulting Agency Comment Spec In Lab Sriram Contreras MD CHEMISTRY ORDERABL ES [facility] [place] [address] * POCT Glucose (07/23/2017 3:50 AM EDT) [facility] POC Glucose 126 65 - 199 mg/dL [facility] Comment: Supplemental ranges: <140 mg/dL before meals <180 mg/dL all other times of the day Blood specimen (specimen) 07/23/2017 3:50 AM EDT 07/23/2017 3:50 AM EDT Sriram Contreras MD POINT OF CARE TEST ORDERABLES Performing Organization Address [facility] Phone Number [facility] [place] [address] * (ABNORMAL) APTT (07/23/2017 1:53 AM EDT) [facility] PTT 119(H) 25 - 35 sec [facility] Comment: The recommended therapeutic range for full dose, unfractionated heparin at [facility] is 80 ? 114 seconds. The use of the anti-Xa (heparin) level rather than the PTT is recommended for monitoring anticoagulation intensity in critically ill patients receiving unfractionated heparin by continuous IV infusion. Blood specimen (specimen) 07/23/2017 1:53 AM EDT 07/23/2017 2:01 AM EDT Narrative Resulting Agency Comment Spec In Lab Sriram Contreras MD HEMATOLOGY ORDERAB LES Performing Organization Address [facility] de Phone Number [facility] [place] [address] * (ABNORMAL) Differential, Automated (07/23/2017 12:45 AM EDT) Pathologist [facility] Neutrophils % 63.2 % [facility] Neutr Abs (ANC) 6.47(H) 1.70 - 6.10 x10(3)/mc L [facility] Lymphocytes % 20.9 % [facility] Lymphocytes Abs 2.1 0.9 - 3.2 x10(3)/[facility] Monocytes % 7.6 % [facility] Monocyte Abs 0.8 0.3 - 0.9 x10(3)/[facility] Eosinophils % 2.8 % [facility] Eosinophils Abs 0.3 0.0 - 0.4 x10(3)/[facility] Basophils % 0.7 % [facility] Basophils Abs 0.1 0.0 - 0.1 x10(3)/[facility] Immature Gran % 4.80 % [facility] Comment: Immature granulocytes(IG's)percentage and absolute count will include metamyelocytes, myelocytes, and promyelocytes. Blood smears from CBCs yielding IG's will be scanned manually for concordance. If this scan disagrees with the automated IG or if promyelocytes are noted, a manual differential will be performed. Patti Gran Abs 0.49(H) 0.00 - 0.04 x10(3)/[facility] Blood specimen (specimen) 07/23/2017 12:45 AM EDT 07/23/2017 12:51 AM EDT Narrative Resulting Agency Comment Spec In Lab Sriram Contreras MD HEMATOLOGY ORDERAB LES Performing Organization Address City/State/[facility] Co de Phone Number [facility] [place] [address] * (ABNORMAL) Hemogram (07/23/2017 12:45 AM EDT) WBC 10.2(H) 4.0 - 9.5 x10(3)/[facility] LABOR[facility]ORY RBC 3.62(L) 4.58 - 5.54 x10(6)/[facility] Hemoglobin 11.1(L) 13.7 - 16.5 gm/dL [facility] Hematocrit 33.5(L) 40.5 - 48.5 % [facility] MCV 92.5 82.9 - 93.1 [facility] MCH 30.7 27.5 - 32.1 pg [facility] MCHC 33.1 32.0 - 35.7 gm/dL [facility] Platelets 165 145 - 357 x10(3)/[facility] LABOR[facility]ORY RDWSD 46.6(H) 36.0 - 45.0 [facility] RDWCV 13.7 11.4 - 13.8 % [facility] MPV 9.9 7.6 - 12.9 [facility] nRBC % Auto 0.0 % [facility] nRBC Abs Auto 0.000 0.000 - 0.000 x10(3)/[facility] Blood specimen (specimen) 07/23/2017 12:45 AM EDT 07/23/2017 12:51 AM EDT Narrative Resulting Agency Comment Spec In Lab Sriram Contreras MD HEMATOLOGY ORDERAB LES [facility] [place] [address] * (ABNORMAL) Basic Metabolic Panel (non-fasting) (07/23/2017 12:45 AM EDT) Glucose Lvl 127 65 - 199 mg/dL [facility] Comment:Diabetes: >=200 mg/d L plus symptoms BUN 20 10 - 20 mg/dL [facility] Creatinine 0.65(L) 0.80 - 1.50 mg/dL [facility] Comment: Please note that the pediatric reference intervals supplied above were not validated at [facility]. Results from pediatric patients should be interpreted in conjunction to the patient's age, height and muscle mass. Sodium 142 135 - 145 mmol/L [facility] Potassium 3.7 3.5 - 5.0 mmol/L [facility] Comment: Please note: ??Patients with WBC >100,000 may have falsely elevated Potassium levels. ??For accurate Potassium quantification in these patients send serum separator tube (gold top) for subsequent determinations. ??Contact the Clinical Chemistry Laboratory if there are any questions. Chloride 105 98 - 107 mmol/L [facility] CO2 26 22 - 31 mmol/L [facility] Anion Gap 11 5 - 15 mmol/L [facility] Calcium 8.3(L) 8.5 - 10.5 mg/dL [facility] Estimated GFR >60 >=60 [facility] Comment: This estimated GFR (eGFR) value was calculated using the MDRD equation which has been validated on patients between the ages of 18 and 70. The MDRD should not be used to assess kidney function in patients < 18 years of age or in patients with extremes of body mass, or in patients with acute kidney failure. This value should be multiplied by 1.2 for patients. For further information please copy and paste the following links into your internet browser. [email or web address] Blood specimen (specimen) 07/23/2017 12:45 AM EDT 07/23/2017 12:51 AM EDT Narrative Resulting Agency Comment Spec In Lab Sriram Contreras MD CHEMISTRY ORDERABL ES Performing Organization Address [facility]/ZIP Co de Phone Number [facility] [place] [address] * POCT Glucose (07/22/2017 11:59 PM EDT) POC Glucose 113 65 - 199 mg/dL [facility] Comment: Supplemental ranges: <140 mg/dL before meals <180 mg/dL all other times of the day Blood specimen (specimen) 07/22/2017 11:59 PM EDT 07/22/2017 11:59 PM EDT Sriram Contreras MD POINT OF CARE TEST ORDERABLES [facility] [place] [address] * POCT Glucose (07/22/2017 8:07 PM EDT) POC Glucose 111 65 - 199 mg/dL [facility] Comment: Supplemental ranges: <140 mg/dL before meals <180 mg/dL all other times of the day Blood specimen (specimen) 07/22/2017 8:07 PM EDT 07/22/2017 8:07 PM EDT Sriram Contreras MD POINT OF CARE TEST ORDERABLES Performing Organization Address [facility] de Phone Number [facility] [place] [address] * POCT Glucose (07/22/2017 4:00 PM EDT) POC Glucose 112 65 - 199 mg/dL [facility] Comment: Supplemental ranges: <140 mg/dL before meals <180 mg/dL all other times of the day Blood specimen (specimen) 07/22/2017 4:00 PM EDT 07/22/2017 4:00 PM EDT Sriram Contreras MD POINT OF CARE TEST ORDERABLES Performing Organization Address [facility] Phone Number [facility] [place] [address] * (ABNORMAL) APTT (07/22/2017 4:00 PM EDT) PTT 92(H) 25 - 35 sec [facility] Comment: The recommended therapeutic range for full dose, unfractionated heparin at [facility] is 80 ? 114 seconds. The use of the anti-Xa (heparin) level rather than the PTT is recommended for monitoring anticoagulation intensity in critically ill patients receiving unfractionated heparin by continuous IV infusion. Blood specimen (specimen) 07/22/2017 4:00 PM EDT 07/22/2017 4:18 PM EDT Narrative Resulting Agency Comment Spec In Lab Sriram Contreras MD HEMATOLOGY ORDERAB LES Performing Organization Address [facility]/State/ZIP Co de Phone Number [facility] [place] [address] * POCT Glucose (07/22/2017 11:45 AM EDT) POC Glucose 111 65 - 199 mg/dL [facility] Comment: Supplemental ranges: <140 mg/dL before meals <180 mg/dL all other times of the day Blood specimen (specimen) 07/22/2017 11:45 AM EDT 07/22/2017 11:45 AM EDT Sriram Contreras MD POINT OF CARE TEST ORDERABLES Performing Organization Address [facility] de Phone Number [facility] [place] [address] * (ABNORMAL) APTT (07/22/2017 8:30 AM EDT) PTT 83(H) 25 - 35 sec [facility] Comment: The recommended therapeutic range for full dose, unfractionated heparin at [facility] is 80 ? 114 seconds. The use of the anti-Xa (heparin) level rather than the PTT is recommended for monitoring anticoagulation intensity in critically ill patients receiving unfractionated heparin by continuous IV infusion. Blood specimen (specimen) 07/22/2017 8:30 AM EDT 07/22/2017 8:39 AM EDT Narrative Resulting Agency Comment Spec In Lab Sriram Contreras MD HEMATOLOGY ORDERAB LES Performing Organization Address [facility] Co de Phone Number [facility] [place] [address] * POCT Glucose (07/22/2017 8:28 AM EDT) POC Glucose 118 65 - 199 mg/dL [facility] Comment: Supplemental ranges: <140 mg/dL before meals <180 mg/dL all other times of the day Blood specimen (specimen) 07/22/2017 8:28 AM EDT 07/22/2017 8:28 AM EDT Sriram Contreras MD POINT OF CARE TEST ORDERABLES [facility] [place] [address] * (ABNORMAL) BLOOD GAS 2 ARTERIAL (07/22/2017 8:27 AM EDT) pH Art 7.42 7.35 - 7.45 [facility] pCO2 Art 39 35 - 45 mmHg [facility] pO2 Art 78(L) 85 - 104 mmHg [facility] HCO3 Art 24.8 20.0 - 26.0 mmol/L [facility] BE Art 0.3 -3.0 - 3.0 mmol/L [facility] Hgb Blood Gas 13.4(L) 13.7 - 16.5 gm/dL [facility] O2HB Art 94.2 94.0 - 97.0 % [facility] COHB Art 0.3 % [facility] Comment: Nonsmokers: 0.5-1.5% COHB Smokers: Variable, but usually less than 10% Toxic: 20-30% COHB Lethal: Greater than 60% COHB METHB Art 0.6 <=1.5 % [facility] Na Whole Blood 140 135 - 145 mmol/L [facility] K Whole Blood 3.8 3.5 - 5.0 mmol/L [facility] Comment: Please note: Patients with WBC >100,000 may have falsely elevated Potassium levels. Contact the Clinical Chemistry Laboratory if there are any questions. ICa Whole Blood 1.21 1.15 - 1.33 mmol/L [facility] Comment: Note: ??Total bilirubin higher than 20 mg/dL may lead to falsely low ionized calcium. CL Whole Blood 107 98 - 107 mmol/L [facility] Gluc Whole Bld 130 65 - 199 mg/dL [facility] Comment:Diabetes: >=200 mg/d L plus symptoms. Lactate WB 1.6 0.5 - 2.2 mmol/L [facility] FIO2 Art 40 % [facility] PF Ratio Art 195 [facility] Blood specimen (specimen) 07/22/2017 8:27 AM EDT 07/22/2017 8:27 AM EDT Sriram Contreras MD CHEMISTRY ORDERABL ES [facility] [place] [address] * (ABNORMAL) Differential, Automated (07/22/2017 3:10 AM EDT) Neutrophils % 72.0 % [facility] Neutr Abs (ANC) 8.75(H) 1.70 - 6.10 x10(3)/[facility] LABORATORY Lymphocytes % 15.0 % [facility] Lymphocytes Abs 1.8 0.9 - 3.2 x10(3)/[facility] LABORATORY Monocytes % 8.0 % [facility] Monocyte Abs 1.0(H) 0.3 - 0.9 x10(3)/[facility] LABORATORY Eosinophils % 2.4 % [facility] Eosinophils Abs 0.3 0.0 - 0.4 x10(3)/[facility] LABORATORY Basophils % 0.3 % [facility] Basophils Abs 0.0 0.0 - 0.1 x10(3)/[facility] LABORATORY Immature Gran % 2.30 % [facility] Comment: Immature granulocytes(IG's)percentage and absolute count will include metamyelocytes, myelocytes, and promyelocytes. Blood smears from CBCs yielding IG's will be scanned manually for concordance. If this scan disagrees with the automated IG or if promyelocytes are noted, a manual differential will be performed. Patti Gran Abs 0.28(H) 0.00 - 0.04 x10(3)/ L [facility] Blood specimen (specimen) 07/22/2017 3:10 AM EDT 07/22/2017 3:15 AM EDT Narrative Resulting Agency Comment Spec In Lab Sriram Contreras MD HEMATOLOGY ORDERAB LES Performing Organization Address [facility]/ZIP [place] [address] * (ABNORMAL) Hemogram (07/22/2017 3:10 AM EDT) WBC 12.2(H) 4.0 - 9.5 x10(3)/[facility] LABORATORY RBC 4.05(L) 4.58 - 5.54 x10(6)/[facility] LABORATORY Hemoglobin 12.5(L) 13.7 - 16.5 gm/dL [facility] Hematocrit 37.9(L) 40.5 - 48.5 % [facility] MCV 93.6(H) 82.9 - 93.1 [facility] LABORATORY MCH 30.9 27.5 - 32.1 pg [facility] MCHC 33.0 32.0 - 35.7 gm/dL [facility] Platelets 168 145 - 357 x10(3)/[facility] LABORATORY RDWSD 48.9(H) 36.0 - 45.0 [facility] LABORATORY RDWCV 14.1(H) 11.4 - 13.8 % [facility] MPV 10.2 7.6 - 12.9 [facility] LABORATORY nRBC % Auto 0.0 % [facility] nRBC Abs Auto 0.000 0.000 - 0.000 x10(3)/[facility] LABORATORY Blood specimen (specimen) 07/22/2017 3:10 AM EDT 07/22/2017 3:15 AM EDT Narrative Resulting Agency Comment Spec In Lab Sriram Contreras MD HEMATOLOGY ORDERAB LES Performing Organization Address City/[facility]/ZIP Co de Phone Number [facility] [place] [address] * (ABNORMAL) APTT (07/22/2017 3:10 AM EDT) PTT 89(H) 25 - 35 sec [facility] Comment: The recommended therapeutic range for full dose, unfractionated heparin at [facility] is 80 ? 114 seconds. The use of the anti-Xa (heparin) level rather than the PTT is recommended for monitoring anticoagulation intensity in critically ill patients receiving unfractionated heparin by continuous IV infusion. Blood specimen (specimen) 07/22/2017 3:10 AM EDT 07/22/2017 3:15 AM EDT Narrative Resulting Agency Comment Spec In Lab Sriram Contreras MD HEMATOLOGY ORDERAB LES [facility] [place] [address] * (ABNORMAL) Basic Metabolic Panel (non-fasting) (07/22/2017 3:10 AM EDT) [facility] Glucose Lvl 121 65 - 199 mg/dL [facility] Comment:Diabetes: >=200 mg/d L plus symptoms BUN 23(H) 10 - 20 mg/dL [facility] Creatinine 0.76(L) 0.80 - 1.50 mg/dL [facility] Comment: Please note that the pediatric reference intervals supplied above were not validated at [facility]. Results from pediatric patients should be interpreted in conjunction to the patient's age, height and muscle mass. Sodium 144 135 - 145 mmol/L [facility] Potassium 3.9 3.5 - 5.0 mmol/L [facility] Comment: Please note: ??Patients with WBC >100,000 may have falsely elevated Potassium levels. ??For accurate Potassium quantification in these patients send serum separator tube (gold top) for subsequent determinations. ??Contact the Clinical Chemistry Laboratory if there are any questions. Chloride 106 98 - 107 mmol/L [facility] CO2 25 22 - 31 mmol/L [facility] Anion Gap 13 5 - 15 mmol/L [facility] Calcium 8.3(L) 8.5 - 10.5 mg/dL [facility] Estimated GFR >60 >=60 [facility] Comment: This estimated GFR (eGFR) value was calculated using the MDRD equation which has been validated on patients between the ages of 18 and 70. The MDRD should not be used to assess kidney function in patients < 18 years of age or in patients with extremes of body mass, or in patients with acute kidney failure. This value should be multiplied by 1.2 for patients. For further information please copy and paste the following links into your internet browser. [email or web address] Blood specimen (specimen) 07/22/2017 3:10 AM EDT 07/22/2017 3:15 AM EDT Narrative Resulting Agency Comment Spec In Lab Sriram Contreras MD CHEMISTRY ORDERABL ES Performing Organization Address [facility]/ZIP Co de Phone Number [facility] [place] [address] * POCT Glucose (07/22/2017 3:08 AM EDT) POC Glucose 109 65 - 199 mg/dL [facility] Comment: Supplemental ranges: <140 mg/dL before meals <180 mg/dL all other times of the day Blood specimen (specimen) 07/22/2017 3:08 AM EDT 07/22/2017 3:08 AM EDT Sriram Contreras MD POINT OF CARE TEST ORDERABLES [facility] [place] [address] * POCT Glucose (07/21/2017 11:52 PM EDT) POC Glucose 135 65 - 199 mg/dL [facility] Comment: Supplemental ranges: <140 mg/dL before meals <180 mg/dL all other times of the day Blood specimen (specimen) 07/21/2017 11:52 PM EDT 07/21/2017 11:52 PM EDT Sriram Contreras MD POINT OF CARE TEST ORDERABLES Performing Organization Address [facility] de Phone Number [facility] [place] [address] * EKG 12 Lead (07/21/2017 10:42 PM EDT) Ventricular rate 75 BPM MUSE SYSTEM Atrial Rate 258 BPM MUSE SYSTEM QRS Duration 86 ms MUSE SYSTEM Q-T Interval 400 ms MUSE SYSTEM QTC Calculated (Bezet) 446 ms MUSE SYSTEM Calculated R [place] 61 degrees MUSE SYSTEM Calculated T [place] 136 degrees MUSE SYSTEM INTERPRETATION Atrial fibrillation with premature ventricular or aberrantly conducted complexes Nonspecific T wave abnormality Abnormal ECG When compared with ECG of 20-JUL-2017 20:40, Nonspecific T wave abnormality now evident in Anterior leads Confirmed by MD TEZ, CRISTIANO ([id number]) on 07/22/2017 10:00:08 AM MUSE SYSTEM 07/21/2017 10:4 2 PM EDT 07/22/2017 10:00 AM EDT Sriram Contreras MD ECG ORDERABLES Performing Organization Address [facility] Phone Number MUSE SYSTEM * Magnesium (07/21/2017 10:35 PM EDT) Pathologist [facility] Magnesium 0.80 0.69 - 1.07 mmol/L [facility] Blood specimen (specimen) 07/21/2017 10:35 PM EDT 07/21/2017 10:40 PM EDT Narrative Resulting Agency Comment Spec In Lab Sriram Contreras MD CHEMISTRY ORDERABL ES Performing Organization Address [facility] Co de Phone Number [facility] [place] [address] * (ABNORMAL) Basic Metabolic Panel (non-fasting) (07/21/2017 10:35 PM EDT) Glucose Lvl 135 65 - 199 mg/dL [facility] Comment:Diabetes: >=200 mg/d L plus symptoms BUN 23(H) 10 - 20 mg/dL [facility] Creatinine 0.88 0.80 - 1.50 mg/dL [facility] Comment: Please note that the pediatric reference intervals supplied above were not validated at [facility]. Results from pediatric patients should be interpreted in conjunction to the patient's age, height and muscle mass. Sodium 144 135 - 145 mmol/L [facility] Potassium 4.0 3.5 - 5.0 mmol/L [facility] Comment: Please note: ??Patients with WBC >100,000 may have falsely elevated Potassium levels. ??For accurate Potassium quantification in these patients send serum separator tube (gold top) for subsequent determinations. ??Contact the Clinical Chemistry Laboratory if there are any questions. Chloride 107 98 - 107 mmol/L [facility] CO2 25 22 - 31 mmol/L [facility] Anion Gap 12 5 - 15 mmol/L [facility] Calcium 8.7 8.5 - 10.5 mg/dL [facility] Estimated GFR >60 >=60 [facility] Comment: This estimated GFR (eGFR) value was calculated using the MDRD equation which has been validated on patients between the ages of 18 and 70. The MDRD should not be used to assess kidney function in patients < 18 years of age or in patients with extremes of body mass, or in patients with acute kidney failure. This value should be multiplied by 1.2 for patients. For further information please copy and paste the following links into your internet browser. [email or web address] [email or web address] Blood specimen (specimen) 07/21/2017 10:35 PM EDT 07/21/2017 10:40 PM EDT Narrative Resulting Agency Comment Spec In Lab Sriram Contreras MD CHEMISTRY ORDERABL ES [facility] [place] [address] * (ABNORMAL) APTT (07/21/2017 9:10 PM EDT) PTT 87(H) 25 - 35 sec [facility] Comment: The recommended therapeutic range for full dose, unfractionated heparin at [facility] is 80 ? 114 seconds. The use of the anti-Xa (heparin) level rather than the PTT is recommended for monitoring anticoagulation intensity in critically ill patients receiving unfractionated heparin by continuous IV infusion. Blood specimen (specimen) 07/21/2017 9:10 PM EDT 07/21/2017 9:17 PM EDT Narrative Resulting Agency Comment Spec In Lab Sriram Contreras MD HEMATOLOGY ORDERAB LES Performing Organization Address [facility] Co de Phone Number [facility] [place] [address] * POCT Glucose (07/21/2017 7:49 PM EDT) POC Glucose 117 65 - 199 mg/dL [facility] Comment: Supplemental ranges: <140 mg/dL before meals <180 mg/dL all other times of the day Blood specimen (specimen) 07/21/2017 7:49 PM EDT 07/21/2017 7:49 PM EDT Sriram Contreras MD POINT OF CARE TEST ORDERABLES Performing Organization Address [facility] Co de Phone Number [facility] [place] [address] * POCT Glucose (07/21/2017 4:10 PM EDT) POC Glucose 116 65 - 199 mg/dL [facility] Comment: Supplemental ranges: <140 mg/dL before meals <180 mg/dL all other times of the day Blood specimen (specimen) 07/21/2017 4:10 PM EDT 07/21/2017 4:10 PM EDT Sriram Contreras MD POINT OF CARE TEST ORDERABLES Performing Organization Address City/[facility] de Phone Number [facility] [place] [address] * (ABNORMAL) APTT (07/21/2017 4:10 PM EDT) PTT 78(H) 25 - 35 sec [facility] Comment: The recommended therapeutic range for full dose, unfractionated heparin at [facility] is 80 ? 114 seconds. The use of the anti-Xa (heparin) level rather than the PTT is recommended for monitoring anticoagulation intensity in critically ill patients receiving unfractionated heparin by continuous IV infusion. Blood specimen (specimen) 07/21/2017 4:10 PM EDT 07/21/2017 4:28 PM EDT Narrative Resulting Agency Comment Spec In Lab Sriram Contreras MD HEMATOLOGY ORDERAB LES Performing Organization Address [facility] Phone Number [facility] [place] [address] * POCT Glucose (07/21/2017 12:04 PM EDT) [facility] POC Glucose 138 65 - 199 mg/dL [facility] Comment: Supplemental ranges: <140 mg/dL before meals <180 mg/dL all other times of the day Blood specimen (specimen) 07/21/2017 12:04 PM EDT 07/21/2017 12:04 PM EDT Sriram Contreras MD POINT OF CARE TEST ORDERABLES Performing Organization Address [facility] Co de Phone Number [facility] [place] [address] * C. Difficile Screen (07/21/2017 9:00 AM EDT) C Diff Screen Negative Negative [facility] Comment: C. diff ??Negative Clostridium difficile is not present in the specimen. If patient is having diarrhea suspected to be from an infectious cause, then Contact Precautions are still required. Stool specimen (specimen) 07/21/2017 9:00 AM EDT 07/21/2017 9:21 AM EDT Comment:I am aware that this test may be canceled if the patient has had->formed stool, laxatives within 48hrs, (-) test within 7 days, (+) test within 14 days Narrative Resulting Agency Comment Spec In Lab Sriram Contreras MD MICROBIOLOGY - GEN ERAL ORDERABLES Performing Organization Address [facility] Co de Phone Number [facility] [place] [address] * Potassium (07/21/2017 8:30 AM EDT) Potassium 3.8 3.5 - 5.0 mmol/L [facility] Comment: Please note: ??Patients with WBC >100,000 may have falsely elevated Potassium levels. ??For accurate Potassium quantification in these patients send serum separator tube (gold top) for subsequent determinations. ??Contact the Clinical Chemistry Laboratory if there are any questions. Blood specimen (specimen) 07/21/2017 8:30 AM EDT 07/21/2017 8:40 AM EDT Narrative Resulting Agency Comment Spec In Lab Sriram Contreras MD CHEMISTRY ORDERABL ES Performing Organization Address [facility] Phone Number [facility] [place] [address] * (ABNORMAL) APTT (07/21/2017 8:30 AM EDT) PTT 63(H) 25 - 35 sec [facility] Comment: The recommended therapeutic range for full dose, unfractionated heparin at [facility] is 80 ? 114 seconds. The use of the anti-Xa (heparin) level rather than the PTT is recommended for monitoring anticoagulation intensity in critically ill patients receiving unfractionated heparin by continuous IV infusion. Blood specimen (specimen) 07/21/2017 8:30 AM EDT 07/21/2017 8:40 AM EDT Narrative Resulting Agency Comment Spec In Lab Sriram Contreras MD HEMATOLOGY ORDERAB LES [facility] [place] [address] * POCT Glucose (07/21/2017 8:24 AM EDT) Pathologist [facility] POC Glucose 131 65 - 199 mg/dL [facility] Comment: Supplemental ranges: <140 mg/dL before meals <180 mg/dL all other times of the day Blood specimen (specimen) 07/21/2017 8:24 AM EDT 07/21/2017 8:24 AM EDT Sriram Contreras MD POINT OF CARE TEST ORDERABLES [facility] [place] [address] * (ABNORMAL) BLOOD GAS 2 ARTERIAL (07/21/2017 7:42 AM EDT) Pathologist [facility] pH Art 7.44 7.35 - 7.45 [facility] pCO2 Art 37 35 - 45 mmHg [facility] pO2 Art 72(L) 85 - 104 mmHg [facility] HCO3 Art 24.5 20.0 - 26.0 mmol/L [facility] BE Art 0.3 -3.0 - 3.0 mmol/L [facility] Hgb Blood Gas 14.0 13.7 - 16.5 gm/dL [facility] O2HB Art 93.8(L) 94.0 - 97.0 % [facility] COHB Art 0.3 % [facility] Comment: Nonsmokers: 0.5-1.5% COHB Smokers: Variable, but usually less than 10% Toxic: 20-30% COHB Lethal: Greater than 60% COHB METHB Art 0.5 <=1.5 % [facility] Na Whole Blood 143 135 - 145 mmol/L [facility] K Whole Blood 4.0 3.5 - 5.0 mmol/L [facility] Comment: Please note: Patients with WBC >100,000 may have falsely elevated Potassium levels. Contact the Clinical Chemistry Laboratory if there are any questions. ICa Whole Blood 1.22 1.15 - 1.33 mmol/L [facility] Comment: Note: ??Total bilirubin higher than 20 mg/dL may lead to falsely low ionized calcium. CL Whole Blood 111(H) 98 - 107 mmol/L [facility] Gluc Whole Bld 148 65 - 199 mg/dL [facility] Comment:Diabetes: >=200 mg/d L plus symptoms. Lactate WB 1.5 0.5 - 2.2 mmol/L [facility] FIO2 Art 40 % [facility] PF Ratio Art 180 [facility] Blood specimen (specimen) 07/21/2017 7:42 AM EDT 07/21/2017 7:42 AM EDT Sriram Contreras MD CHEMISTRY ORDERABL ES Performing Organization Address [facility] Co de Phone Number [facility] [place] [address] * POCT Glucose (07/21/2017 3:21 AM EDT) POC Glucose 116 65 - 199 mg/dL [facility] Comment: Supplemental ranges: <140 mg/dL before meals <180 mg/dL all other times of the day Blood specimen (specimen) 07/21/2017 3:21 AM EDT 07/21/2017 3:21 AM EDT Sriram Contreras MD POINT OF CARE TEST ORDERABLES Performing Organization Address City/[facility]/ZIP Co de Phone Number [facility] [place] [address] * Potassium (07/21/2017 3:20 AM EDT) Potassium 4.0 3.5 - 5.0 mmol/L [facility] Comment: Please note: ??Patients with WBC >100,000 may have falsely elevated Potassium levels. ??For accurate Potassium quantification in these patients send serum separator tube (gold top) for subsequent determinations. ??Contact the Clinical Chemistry Laboratory if there are any questions. Blood specimen (specimen) 07/21/2017 3:20 AM EDT 07/21/2017 5:17 AM EDT Narrative Resulting Agency Comment Spec In Lab Sriram Contreras MD CHEMISTRY ORDERABL ES Performing Organization Address [facility] Co de Phone Number [facility] [place] [address] * (ABNORMAL) APTT (07/21/2017 1:05 AM EDT) PTT 42(H) 25 - 35 sec [facility] Comment: The recommended therapeutic range for full dose, unfractionated heparin at [facility] is 80 ? 114 seconds. The use of the anti-Xa (heparin) level rather than the PTT is recommended for monitoring anticoagulation intensity in critically ill patients receiving unfractionated heparin by continuous IV infusion. Blood specimen (specimen) 07/21/2017 1:05 AM EDT 07/21/2017 1:08 AM EDT Narrative Resulting Agency Comment Spec In Lab Sriram Contreras MD HEMATOLOGY ORDERAB LES Performing Organization Address [facility] Co de Phone Number [facility] [place] [address] * (ABNORMAL) Differential, Automated (07/21/2017 12:25 AM EDT) Neutrophils % 75.8 % [facility] Neutr Abs (ANC) 7.59(H) 1.70 - 6.10 x10(3)/mc L [facility] Lymphocytes % 12.8 % [facility] Lymphocytes Abs 1.3 0.9 - 3.2 x10(3)/mc L [facility] Monocytes % 9.0 % [facility] Monocyte Abs 0.9 0.3 - 0.9 x10(3)/mc L [facility] Eosinophils % 1.1 % [facility] Eosinophils Abs 0.1 0.0 - 0.4 x10(3)/[facility] LABORATORY Basophils % 0.3 % [facility] Basophils Abs 0.0 0.0 - 0.1 x10(3)/[facility] LABORATORY Immature Gran % 1.00 % [facility] Comment: Immature granulocytes(IG's)percentage and absolute count will include metamyelocytes, myelocytes, and promyelocytes. Blood smears from CBCs yielding IG's will be scanned manually for concordance. If this scan disagrees with the automated IG or if promyelocytes are noted, a manual differential will be performed. Patti Gran Abs 0.10(H) 0.00 - 0.04 x10(3)/[facility] LABORATORY Blood specimen (specimen) 07/21/2017 12:25 AM EDT 07/21/2017 12:48 AM EDT Narrative Resulting Agency Comment Spec In Lab Sriram Contreras MD HEMATOLOGY ORDERAB LES [facility] [place] [address] * (ABNORMAL) Hemogram (07/21/2017 12:25 AM EDT) WBC 10.0(H) 4.0 - 9.5 x10(3)/[facility] LABORATORY RBC 4.24(L) 4.58 - 5.54 x10(6)/[facility] LABORATORY Hemoglobin 13.2(L) 13.7 - 16.5 gm/dL [facility] Hematocrit 39.4(L) 40.5 - 48.5 % [facility] MCV 92.9 82.9 - 93.1 fL [facility] MCH 31.1 27.5 - 32.1 pg [facility] MCHC 33.5 32.0 - 35.7 gm/dL [facility] Platelets 163 145 - 357 x10(3)/[facility] RDWSD 48.0(H) 36.0 - 45.0 [facility] LABORATORY RDWCV 14.1(H) 11.4 - 13.8 % [facility] MPV 10.2 7.6 - 12.9 [facility] LABORATORY nRBC % Auto 0.0 % [facility] nRBC Abs Auto 0.000 0.000 - 0.000 x10(3)/mcL [facility] Blood specimen (specimen) 07/21/2017 12:25 AM EDT 07/21/2017 12:48 AM EDT Narrative Resulting Agency Comment Spec In Lab Sriram Contreras MD HEMATOLOGY ORDERAB LES [facility] [place] [address] * (ABNORMAL) Basic Metabolic Panel (non-fasting) (07/21/2017 12:25 AM EDT) Glucose Lvl 132 65 - 199 mg/dL [facility] Comment:Diabetes: >=200 mg/d L plus symptoms BUN 22(H) 10 - 20 mg/dL [facility] Creatinine 0.79(L) 0.80 - 1.50 mg/dL [facility] Comment: Please note that the pediatric reference intervals supplied above were not validated at [facility]. Results from pediatric patients should be interpreted in conjunction to the patient's age, height and muscle mass. Sodium 146(H) 135 - 145 mmol/L [facility] Potassium 3.8 3.5 - 5.0 mmol/L [facility] Comment: Please note: ??Patients with WBC >100,000 may have falsely elevated Potassium levels. ??For accurate Potassium quantification in these patients send serum separator tube (gold top) for subsequent determinations. ??Contact the Clinical Chemistry Laboratory if there are any questions. Chloride 110(H) 98 - 107 mmol/L [facility] CO2 25 22 - 31 mmol/L [facility] Anion Gap 11 5 - 15 mmol/L [facility] Calcium 8.5 8.5 - 10.5 mg/dL [facility] Estimated GFR >60 >=60 [facility] Comment: This estimated GFR (eGFR) value was calculated using the MDRD equation which has been validated on patients between the ages of 18 and 70. The MDRD should not be used to assess kidney function in patients < 18 years of age or in patients with extremes of body mass, or in patients with acute kidney failure. This value should be multiplied by 1.2 for patients. For further information please copy and paste the following links into your internet browser. [email or web address] Blood specimen (specimen) 07/21/2017 12:25 AM EDT 07/21/2017 12:48 AM EDT Narrative Resulting Agency Comment Spec In Lab Sriram Contreras MD CHEMISTRY ORDERABL ES [facility] [place] [id number] * (ABNORMAL) BLOOD GAS 2 ARTERIAL (07/21/2017 12:21 AM EDT) pH Art 7.44 7.35 - 7.45 [facility] pCO2 Art 37 35 - 45 mmHg [facility] pO2 Art 70(L) 85 - 104 mmHg [facility] HCO3 Art 24.1 20.0 - 26.0 mmol/L [facility] BE Art 0.1 -3.0 - 3.0 mmol/L [facility] Hgb Blood Gas 14.3 13.7 - 16.5 gm/dL [facility] O2HB Art 92.8(L) 94.0 - 97.0 % [facility] COHB Art 0.0 % [facility] Comment: Nonsmokers: 0.5-1.5% COHB Smokers: Variable, but usually less than 10% Toxic: 20-30% COHB Lethal: Greater than 60% COHB METHB Art 0.4 <=1.5 % [facility] Na Whole Blood 145 135 - 145 mmol/L [facility] K Whole Blood 3.9 3.5 - 5.0 mmol/L [facility] Comment: Please note: Patients with WBC >100,000 may have falsely elevated Potassium levels. Contact the Clinical Chemistry Laboratory if there are any questions. ICa Whole Blood 1.21 1.15 - 1.33 mmol/L [facility] Comment: Note: ??Total bilirubin higher than 20 mg/dL may lead to falsely low ionized calcium. CL Whole Blood 110(H) 98 - 107 mmol/L [facility] Gluc Whole Bld 132 65 - 199 mg/dL [facility] Comment:Diabetes: >=200 mg/d L plus symptoms. Lactate WB 1.1 0.5 - 2.2 mmol/L [facility] FIO2 Art 40 % [facility] PF Ratio Art 175 [facility] Temp Art 37.8 Celsius [facility] Blood specimen (specimen) 07/21/2017 12:21 AM EDT 07/21/2017 12:21 AM EDT Sriram Contreras MD CHEMISTRY ORDERABL ES Performing Organization Address [facility]/ZIP Co de Phone Number [facility] [place] [address] * POCT Glucose (07/21/2017 12:00 AM EDT) POC Glucose 119 65 - 199 mg/dL [facility] Comment: Supplemental ranges: <140 mg/dL before meals <180 mg/dL all other times of the day Blood specimen (specimen) 07/21/2017 07/21/2017 Sriram Contreras MD POINT OF CARE TEST ORDERABLES Performing Organization Address City/[facility] Co de Phone Number [facility] [place] [address] * Potassium (07/20/2017 9:50 PM EDT) Pathologist [facility] Potassium 4.1 3.5 - 5.0 mmol/L [facility] Comment: Please note: ??Patients with WBC >100,000 may have falsely elevated Potassium levels. ??For accurate Potassium quantification in these patients send serum separator tube (gold top) for subsequent determinations. ??Contact the Clinical Chemistry Laboratory if there are any questions. Blood specimen (specimen) 07/20/2017 9:50 PM EDT 07/20/2017 10:01 PM EDT Narrative Resulting Agency Comment Spec In Lab Sriram Contreras MD CHEMISTRY ORDERABL ES Performing Organization Address [facility] Co de Phone Number [facility] [place] [address] * EKG 12 Lead (07/20/2017 8:40 PM EDT) Pathologist [facility] Ventricular rate 77 BPM MUSE SYSTEM Atrial Rate 394 BPM MUSE SYSTEM QRS Duration 86 ms MUSE SYSTEM Q-T Interval 396 ms MUSE SYSTEM QTC Calculated (Bezet) 448 ms MUSE SYSTEM Calculated R [place] 73 degrees MUSE SYSTEM Calculated T [place] 127 degrees MUSE SYSTEM INTERPRETATION Atrial fibrillation Nonspecific ST abnormality Abnormal ECG When compared with ECG of 19-JUL-2017 16:55, Nonspecific T wave abnormality no longer evident in Inferior leads T wave inversion now evident in Lateral leads Confirmed by MD MONTANO ALAN ([id number]) on 07/21/2017 8:04:57 PM MUSE SYSTEM 07/20/2017 8:40 PM EDT 07/21/2017 8:04 PM EDT Biju Aguero APRN ECG ORDERABLES Performing Organization Address [facility]/ZIP Co de Phone Number MUSE SYSTEM * POCT Glucose (07/20/2017 7:28 PM EDT) Pathologist [facility] POC Glucose 126 65 - 199 mg/dL [facility] Comment: Supplemental ranges: <140 mg/dL before meals <180 mg/dL all other times of the day Blood specimen (specimen) 07/20/2017 7:28 PM EDT 07/20/2017 7:28 PM EDT Sriram Contreras MD POINT OF CARE TEST ORDERABLES [facility] [place] [address] * (ABNORMAL) Differential, Automated (07/20/2017 5:15 PM EDT) Neutrophils % 79.7 % [facility] Neutr Abs (ANC) 8.01(H) 1.70 - 6.10 x10(3)/[facility] LABORATORY Lymphocytes % 10.4 % [facility] Lymphocytes Abs 1.0 0.9 - 3.2 x10(3)/[facility] LABORATORY Monocytes % 8.0 % [facility] Monocyte Abs 0.8 0.3 - 0.9 x10(3)/[facility] LABORATORY Eosinophils % 0.7 % [facility] Eosinophils Abs 0.1 0.0 - 0.4 x10(3)/[facility] LABORATORY Basophils % 0.2 % [facility] Basophils Abs 0.0 0.0 - 0.1 x10(3)/[facility] LABORATORY Immature Gran % 1.00 % [facility] Comment: Immature granulocytes(IG's)percentage and absolute count will include metamyelocytes, myelocytes, and promyelocytes. Blood smears from CBCs yielding IG's will be scanned manually for concordance. If this scan disagrees with the automated IG or if promyelocytes are noted, a manual differential will be performed. Patti Gran Abs 0.10(H) 0.00 - 0.04 x10(3)/[facility] LABORATORY Blood specimen (specimen) 07/20/2017 5:15 PM EDT 07/20/2017 5:26 PM EDT Narrative Resulting Agency Comment Spec In Lab Sriram Contreras MD HEMATOLOGY ORDERAB LES [facility] [place] [address] * (ABNORMAL) Hemogram (07/20/2017 5:15 PM EDT) WBC 10.0(H) 4.0 - 9.5 x10(3)/[facility] LABORATORY RBC 4.28(L) 4.58 - 5.54 x10(6)/[facility] LABORATORY Hemoglobin 13.3(L) 13.7 - 16.5 gm/dL [facility] Hematocrit 39.9(L) 40.5 - 48.5 % [facility] MCV 93.2(H) 82.9 - 93.1 [facility]ATORY MCH 31.1 27.5 - 32.1 pg [facility] MCHC 33.3 32.0 - 35.7 gm/dL [facility] Platelets 163 145 - 357 x10(3)/[facility] RDWSD 47.7(H) 36.0 - 45.0 [facility] LAB[facility]ATORY RDWCV 14.1(H) 11.4 - 13.8 % [facility] MPV 10.1 7.6 - 12.9 [facility] LABORATORY nRBC % Auto 0.0 % [facility] nRBC Abs Auto 0.000 0.000 - 0.000 x10(3)/[facility] LABORATORY Blood specimen (specimen) 07/20/2017 5:15 PM EDT 07/20/2017 5:26 PM EDT Narrative Resulting Agency Comment Spec In Lab Sriram Contreras MD HEMATOLOGY ORDERAB LES [facility] [place] [address] * APTT (07/20/2017 5:15 PM EDT) PTT 28 25 - 35 sec [facility] Comment: The recommended therapeutic range for full dose, unfractionated heparin at [facility] is 80 ? 114 seconds. The use of the anti-Xa (heparin) level rather than the PTT is recommended for monitoring anticoagulation intensity in critically ill patients receiving unfractionated heparin by continuous IV infusion. Blood specimen (specimen) 07/20/2017 5:15 PM EDT 07/20/2017 5:26 PM EDT Narrative Resulting Agency Comment Spec In Lab Sriram Contreras MD HEMATOLOGY ORDERAB LES Performing Organization Address [facility] Co de Phone Number [facility] [place] [address] * Magnesium (07/20/2017 4:50 PM EDT) [facility] Magnesium 1.00 0.69 - 1.07 mmol/L [facility] Blood specimen (specimen) 07/20/2017 4:50 PM EDT 07/20/2017 5:10 PM EDT Narrative Resulting Agency Comment Spec In Lab Sylvia Vaughn MD CHEMISTRY ORDERABLES Performing Organization Address [facility] Co de Phone Number [facility] [place] [address] * (ABNORMAL) Basic Metabolic Panel (non-fasting) (07/20/2017 4:50 PM EDT) [facility] Glucose Lvl 143 65 - 199 mg/dL [facility] Comment:Diabetes: >=200 mg/d L plus symptoms BUN 23(H) 10 - 20 mg/dL [facility] Creatinine 0.85 0.80 - 1.50 mg/dL [facility] Comment: Please note that the pediatric reference intervals supplied above were not validated at [facility]. Results from pediatric patients should be interpreted in conjunction to the patient's age, height and muscle mass. Sodium 146(H) 135 - 145 mmol/L [facility] Potassium 3.9 3.5 - 5.0 mmol/L [facility] Comment: Please note: ??Patients with WBC >100,000 may have falsely elevated Potassium levels. ??For accurate Potassium quantification in these patients send serum separator tube (gold top) for subsequent determinations. ??Contact the Clinical Chemistry Laboratory if there are any questions. Chloride 110(H) 98 - 107 mmol/L [facility] CO2 25 22 - 31 mmol/L [facility] Anion Gap 11 5 - 15 mmol/L [facility] Calcium 8.5 8.5 - 10.5 mg/dL [facility] Estimated GFR >60 >=60 [facility] Comment: This estimated GFR (eGFR) value was calculated using the MDRD equation which has been validated on patients between the ages of 18 and 70. The MDRD should not be used to assess kidney function in patients < 18 years of age or in patients with extremes of body mass, or in patients with acute kidney failure. This value should be multiplied by 1.2 for patients. For further information please copy and paste the following links into your internet browser. [email or web address] Blood specimen (specimen) 07/20/2017 4:50 PM EDT 07/20/2017 5:10 PM EDT Narrative Resulting Agency Comment Spec In Lab Sylvia Vaughn MD CHEMISTRY ORDERABLES Performing Organization Address City/[facility]/ZIP Co de Phone Number [facility] [place] [address] * POCT Glucose (07/20/2017 3:41 PM EDT) POC Glucose 138 65 - 199 mg/dL [facility] Comment: Supplemental ranges: <140 mg/dL before meals <180 mg/dL all other times of the day Blood specimen (specimen) 07/20/2017 3:41 PM EDT 07/20/2017 3:41 PM EDT Sriram Contreras MD POINT OF CARE TEST ORDERABLES [facility] [place] [address] * CTA Chest for Pulmonary Embolus w Contrast (07/20/2017 1:18 PM EDT) Anatomical Region Laterality Modality Chest Computed Tomogra phy Impressions 07/20/2017 5:38 PM EDT Multiple right PE as described above. Findings discussed with Dr. Cuevas at the time of this interpretation Narrative 07/20/2017 5:38 PM EDT EXAMINATION: CTA chest for pulmonary arteries CLINICAL HISTORY: acute respiratory decompensation s/p ENT surgery TECHNIQUE: 3 mm thick axial contiguous sections were obtained through the chest via helical acquisition after the intravenous administration of 95 cc of Omnipaque-350. Thin-section reconstructions as well as coronal and sagittal MIP reformatted images were generated to aid in evaluation. COMPARISON: 03/29/2017 FINDINGS: Pulmonary arteries: There are multiple long segment pulmonary emboli within the right upper lobe pulmonary artery branches. Additional smaller PE are identified in right lower lobe segmental pulmonary arteries. Interventricular septum flattening or bowing: Absent Venous contrast reflux: N/A Other cardiovascular structures: No significant findings. Pulmonary parenchyma: Moderate bibasilar airspace process and [...] structures: Stable severe degenerative changes thoracolumbar spine. Procedure Note Aileen Lantigua MD - 07/20/2017 EXAMINATION: CTA chest for pulmonary arteries CLINICAL HISTORY: acute respiratory decompensation s/p ENT surgery TECHNIQUE: 3 mm thick axial contiguous sections were obtained through thechest via helical acquisition after the intravenous administration of 95 cc of Omnipaque-350. Thin-section reconstructions as well as coronal andsagittal MIP reformatted images were generated to aid in evaluation. COMPARISON: 03/29/2017 FINDINGS: Pulmonary arteries: There are multiple long segment pulmonary emboliwithin the right upper lobe pulmonary artery branches. Additional smaller PE areidentified in right lower lobe segmental pulmonary arteries. Interventricular septum flattening or bowing: Absent Venous contrast reflux: N/A Other cardiovascular structures: No significant findings. Pulmonary parenchyma: Moderate bibasilar airspace process and additional multifocal areas of groundglass opacity and consolidation. New 5 mmnodular opacity abutting major fissure likely benign. Airways: No significant findings. Pleura: Small effusions. Lymph nodes: No significant findings. Other mediastinal structures: No significant findings. Upper abdomen: Stable pelviectasis versus bilateral parapelvic cysts inboth kidneys, left greater than right. Stable likely right upper pole cyst. Skeletal structures: Stable severe degenerative changes thoracolumbarspine. IMPRESSION Multiple right PE as described above. Findings discussed with Dr. Cuevas at the time of this interpretation Sriram Contreras MD IMG CT ORDERABLES * (ABNORMAL) Lower Respiratory Culture Tracheal Aspirate (07/20/2017 12:31 PM EDT) Lower Respiratory Culture Moderate Enterobacter aerogenes Moderate mixed bacterial morphotypes suggestive of normal upper respiratory yung (A) [facility] Gram Stain Many White Blood Cells seen Few squamous epithelial cells seen Many Gram Negative Rods seen Many mixed bacterial morphotypes suggestive of normal upper respiratory yung (A) [facility] Organism Enterobacter aerogenes(A) [facility] Organism Gram Negative Rods(A) [facility] Specimen from trachea obtained by aspiration (specimen) 07/20/2017 12:31 PM EDT 07/20/2017 1:31 PM EDT Narrative Resulting Agency Comment Spec In Lab Organism Antibiotic Method Susceptibility Klebsiella aerogenes (Enterobacter aerogenes) Amikacin MICROSCAN METHOD Sensitive Klebsiella aerogenes (Enterobacter aerogenes) Ampicillin MICROSCAN METHOD Resistant Klebsiella aerogenes (Enterobacter aerogenes) Ampicillin + Sulbactam MICROSCAN METHOD Resistant Klebsiella aerogenes (Enterobacter aerogenes) Aztreonam MICROSCAN METHOD Sensitive Klebsiella aerogenes (Enterobacter aerogenes) Cefazolin MICROSCAN METHOD Resistant Klebsiella aerogenes (Enterobacter aerogenes) Cefepime MICROSCAN METHOD Sensitive Klebsiella aerogenes (Enterobacter aerogenes) Ceftazidime MICROSCAN METHOD Sensitive Klebsiella aerogenes (Enterobacter aerogenes) Ceftriaxone MICROSCAN METHOD Sensitive Comment: This organism carries inducible Beta-lactamase. ??Monotherapy with Ceftriaxone or Ceftazidime is not advised. Klebsiella aerogenes (Enterobacter aerogenes) Cefuroxime MICROSCAN METHOD Sensitive Klebsiella aerogenes (Enterobacter aerogenes) Ciprofloxacin MICROSCAN METHOD Sensitive Klebsiella aerogenes (Enterobacter aerogenes) Gentamicin MICROSCAN METHOD Sensitive Klebsiella aerogenes (Enterobacter aerogenes) Levofloxacin MICROSCAN METHOD Sensitive Klebsiella aerogenes (Enterobacter aerogenes) Meropenem MICROSCAN METHOD Sensitive Klebsiella aerogenes (Enterobacter aerogenes) Piperacillin/Tazobactam MICROSCAN METHOD Sensitive Klebsiella aerogenes (Enterobacter aerogenes) Tetracycline MICROSCAN METHOD Sensitive Klebsiella aerogenes (Enterobacter aerogenes) Tigecycline MICROSCAN METHOD Sensitive Klebsiella aerogenes (Enterobacter aerogenes) Tobramycin MICROSCAN METHOD Sensitive Klebsiella aerogenes (Enterobacter aerogenes) Trimethoprim/Sulfa MICROSCAN METHOD Sensitive Sriram Contreras MD MICROBIOLOGY - GEN ERAL ORDERABLES Performing Organization Address [facility]/ZIP Co de Phone Number [facility] [place] [address] * POCT Glucose (07/20/2017 11:45 AM EDT) [facility] POC Glucose 125 65 - 199 mg/dL [facility] Comment: Supplemental ranges: <140 mg/dL before meals <180 mg/dL all other times of the day Blood specimen (specimen) 07/20/2017 11:45 AM EDT 07/20/2017 11:45 AM EDT Sriram Contreras MD POINT OF CARE TEST ORDERABLES Performing Organization Address City/[facility]/ZIP Co de Phone Number [facility] [place] [address] * (ABNORMAL) BLOOD GAS 2 ARTERIAL (07/20/2017 11:43 AM EDT) Pathologist [facility] pH Art 7.45 7.35 - 7.45 [facility] pCO2 Art 35 35 - 45 mmHg [facility] pO2 Art 57(L) 85 - 104 mmHg [facility] HCO3 Art 23.9 20.0 - 26.0 mmol/L [facility] BE Art 0.1 -3.0 - 3.0 mmol/L [facility] Hgb Blood Gas 14.6 13.7 - 16.5 gm/dL [facility] O2HB Art 89.5(L) 94.0 - 97.0 % [facility] COHB Art 0.0 % [facility] Comment: Nonsmokers: 0.5-1.5% COHB Smokers: Variable, but usually less than 10% Toxic: 20-30% COHB Lethal: Greater than 60% COHB METHB Art 0.5 <=1.5 % [facility] Na Whole Blood 145 135 - 145 mmol/L [facility] K Whole Blood 3.9 3.5 - 5.0 mmol/L [facility] Comment: Please note: Patients with WBC >100,000 may have falsely elevated Potassium levels. Contact the Clinical Chemistry Laboratory if there are any questions. ICa Whole Blood 1.23 1.15 - 1.33 mmol/L [facility] Comment: Note: ??Total bilirubin higher than 20 mg/dL may lead to falsely low ionized calcium. CL Whole Blood 110(H) 98 - 107 mmol/L [facility] Gluc Whole Bld 136 65 - 199 mg/dL [facility] Comment:Diabetes: >=200 mg/d L plus symptoms. Lactate WB 1.3 0.5 - 2.2 mmol/L [facility] FIO2 Art 35 % [facility] PF Ratio Art 163 [facility] Temp Art 37.6 Celsius [facility] Blood specimen (specimen) 07/20/2017 11:43 AM EDT 07/20/2017 11:43 AM EDT Sriram Contreras MD CHEMISTRY ORDERABL ES [facility] [place] [address] * Potassium (07/20/2017 10:15 AM EDT) Potassium 4.1 3.5 - 5.0 mmol/L [facility] Comment: Please note: ??Patients with WBC >100,000 may have falsely elevated Potassium levels. ??For accurate Potassium quantification in these patients send serum separator tube (gold top) for subsequent determinations. ??Contact the Clinical Chemistry Laboratory if there are any questions. Blood specimen (specimen) 07/20/2017 10:15 AM EDT 07/20/2017 10:33 AM EDT Narrative Resulting Agency Comment Spec In Lab Sriram Contreras MD CHEMISTRY ORDERABL ES [facility] [place] [address] * XR Chest PA or AP 1 view (07/20/2017 8:15 AM EDT) Anatomical Region Laterality Modality Chest N/A Digital Radiogra phy Impressions 07/20/2017 9:12 AM EDT Asymmetric left lower lung opacities are concerning for pneumonia or sequela of aspiration. Bilateral small pleural effusions. Suspect a component of mild to moderate pulmonary edema or developing ARDS. Narrative 07/20/2017 9:12 AM EDT EXAMINATION: XR CHEST PA OR AP 1 VIEW CLINICAL HISTORY: 66M s/p intubation for respiratory distress, ? pneumonia and reason for respiratory compromise TECHNIQUE: Single AP view of the chest. COMPARISON: July 19, 2017. FINDINGS: Endotracheal tube ends in the midthoracic trachea. Feeding tube ends in the expected region of the fundus of the stomach. Perihilar prominence and patchy opacities in the left lower lung. Blunting of the bilateral costophrenic angles. Dense retrocardiac opacity. Procedure Note Alley Isbell MD - 07/20/2017 EXAMINATION: XR CHEST PA OR AP 1 VIEW CLINICAL HISTORY: 66M s/p intubation for respiratory distress, ? pneumoniaand reason for respiratory compromise TECHNIQUE: Single AP view of the chest. COMPARISON: July 19, 2017. FINDINGS: Endotracheal tube ends in the midthoracic trachea. Feeding tube ends inthe expected region of the fundus of the stomach. Perihilar prominence and patchy opacities in the left lower lung. Bluntingof the bilateral costophrenic angles. Dense retrocardiac opacity. IMPRESSION Asymmetric left lower lung opacities are concerning for pneumonia orsequela of aspiration. Bilateral small pleural effusions. Suspect a component of mild tomoderate pulmonary edema or developing ARDS. Sriram Contreras MD IMG DX ORDERABLES * INTUBATION (07/20/2017 7:51 AM EDT) Narrative Roberto Betancur MD - 07/20/2017 7:51 AM EDT Hedy Cat, DO ? 07/19/2017 ??5:56 PM Intubation Procedure Note Reason for Intubation: ?Hypoxemia. Procedure Diagnosis: hypoxic respiratory failure Location of Procedure: ICU [facility]. Risks and Benefits: The risks and benefits of this procedure were not reviewed and informed consent was not obtained obtained. Time Out: Prior to the start of the procedure, the patient's identity, intended procedure, site/side, correct patient positioning and presence of the site samm was confirmed as applicable. The medical history and chart were reviewed to rule out potential contraindications to the planned procedure. Intubation Assessment: ?? Full stomach ?? 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 Bag/mask ventilation was ??easy Laryngoscope Blade and Size: D blade The endotracheal tube size was 7.5 mm. The tube was cuffed. Common Adjuvant Equipment: A stylet was used. An oral airway was not used. ?? A nasal airway was not used. ?? Additional Adjuvant Equipment: Type scope: C mac [place] Intubation Catheter: no Combitube:no Intubating Laryngeal Mask Airway:none Laryngeal Mask Airway: none Other: Intubation Method: other: video laryngoscopy IV Medications: ?? 200 mg Propofol ?? 100 mg Rocuronium Other Medications: ?? Other: 320 mcg neosynephrine Insertion Attempts: There was 1 attempt. Visualization of Vocal Chords: A Grade I view of the vocal cords was observed. Confirmation of Tube Placement: ?Chest X-ray ordered ?? end tidal CO2 ?? bilateral breath sounds ?? visualization of trachea Status Post Intubation: ?? The patient was hemodynamically stable. ?? The procedure was uncomplicated and atraumatic. Tube secured (at lip or nares): 24 cm Other post intubation status comments: Pt tolerated the procedure well without issue. Dr. Betancur was present for the duration of the procedure. Hedy Cat, 07/19/2017 Sriram Contreras MD PROCEDURE/[facility] ORDERABLES * POCT Glucose (07/20/2017 7:29 AM EDT) POC Glucose 134 65 - 199 mg/dL [facility] Comment: Supplemental ranges: <140 mg/dL before meals <180 mg/dL all other times of the day Blood specimen (specimen) 07/20/2017 7:29 AM EDT 07/20/2017 7:29 AM EDT Sriram Contreras MD POINT OF CARE TEST ORDERABLES Performing Organization Address [facility] de Phone Number [facility] [place] [address] * Potassium (07/20/2017 7:28 AM EDT) Potassium 4.0 3.5 - 5.0 mmol/L [facility] Comment: Please note: ??Patients with WBC >100,000 may have falsely elevated Potassium levels. ??For accurate Potassium quantification in these patients send serum separator tube (gold top) for subsequent determinations. ??Contact the Clinical Chemistry Laboratory if there are any questions. Blood specimen (specimen) 07/20/2017 7:28 AM EDT 07/20/2017 7:40 AM EDT Narrative Resulting Agency Comment Spec In Lab Sriram Contreras MD CHEMISTRY ORDERABL ES Performing Organization Address [facility] Co de Phone Number [facility] [place] [address] * (ABNORMAL) Differential, Automated (07/20/2017 3:15 AM EDT) Neutrophils % 83.6 % [facility] Neutr Abs (ANC) 8.93(H) 1.70 - 6.10 x10(3)/[facility] Lymphocytes % 9.1 % [facility] Lymphocytes Abs 1.0 0.9 - 3.2 x10(3)/[facility] Monocytes % 6.3 % [facility] Monocyte Abs 0.7 0.3 - 0.9 x10(3)/[facility] Eosinophils % 0.1 % [facility] Eosinophils Abs 0.0 0.0 - 0.4 x10(3)/[facility] Basophils % 0.2 % [facility] Basophils Abs 0.0 0.0 - 0.1 x10(3)/[facility] Immature Gran % 0.70 % [facility] Comment: Immature granulocytes(IG's)percentage and absolute count will include metamyelocytes, myelocytes, and promyelocytes. Blood smears from CBCs yielding IG's will be scanned manually for concordance. If this scan disagrees with the automated IG or if promyelocytes are noted, a manual differential will be performed. Patti Gran Abs 0.07(H) 0.00 - 0.04 x10(3)/[facility] Blood specimen (specimen) 07/20/2017 3:15 AM EDT 07/20/2017 3:58 AM EDT Narrative Resulting Agency Comment Spec In Lab Sriram Contreras MD HEMATOLOGY ORDERAB LES [facility] [place] [address] * (ABNORMAL) Hemogram (07/20/2017 3:15 AM EDT) WBC 10.7(H) 4.0 - 9.5 x10(3)/[facility] RBC 4.40(L) 4.58 - 5.54 x10(6)/[facility] Hemoglobin 13.7 13.7 - 16.5 gm/dL [facility] Hematocrit 39.6(L) 40.5 - 48.5 % [facility] MCV 90.0 82.9 - 93.1 fL [facility] MCH 31.1 27.5 - 32.1 pg [facility] MCHC 34.6 32.0 - 35.7 gm/dL [facility] Platelets 186 145 - 357 x10(3)/[facility] RDWSD 45.8(H) 36.0 - 45.0 [facility] RDWCV 13.9(H) 11.4 - 13.8 % [facility] MPV 9.9 7.6 - 12.9 [facility] nRBC % Auto 0.0 % [facility] nRBC Abs Auto 0.000 0.000 - 0.000 x10(3)/[facility] Blood specimen (specimen) 07/20/2017 3:15 AM EDT 07/20/2017 3:58 AM EDT Narrative Resulting Agency Comment Spec In Lab Sriram Contreras MD HEMATOLOGY ORDERAB LES [facility] [place] [address] * (ABNORMAL) Basic Metabolic Panel (non-fasting) (07/20/2017 3:15 AM EDT) Glucose Lvl 126 65 - 199 mg/dL [facility] Comment:Diabetes: >=200 mg/d L plus symptoms BUN 23(H) 10 - 20 mg/dL [facility] Creatinine 0.97 0.80 - 1.50 mg/dL [facility] Comment: Please note that the pediatric reference intervals supplied above were not validated at [facility]. Results from pediatric patients should be interpreted in conjunction to the patient's age, height and muscle mass. Sodium 143 135 - 145 mmol/L [facility] Potassium 3.9 3.5 - 5.0 mmol/L [facility] Comment: Please note: ??Patients with WBC >100,000 may have falsely elevated Potassium levels. ??For accurate Potassium quantification in these patients send serum separator tube (gold top) for subsequent determinations. ??Contact the Clinical Chemistry Laboratory if there are any questions. Chloride 106 98 - 107 mmol/L [facility] CO2 23 22 - 31 mmol/L [facility] Anion Gap 14 5 - 15 mmol/L [facility] Calcium 8.5 8.5 - 10.5 mg/dL [facility] Estimated GFR >60 >=60 [facility] Comment: This estimated GFR (eGFR) value was calculated using the MDRD equation which has been validated on patients between the ages of 18 and 70. The MDRD should not be used to assess kidney function in patients < 18 years of age or in patients with extremes of body mass, or in patients with acute kidney failure. This value should be multiplied by 1.2 for patients. For further information please copy and paste the following links into your internet browser. [email or web address] [email or web address] Blood specimen (specimen) 07/20/2017 3:15 AM EDT 07/20/2017 3:58 AM EDT Narrative Resulting Agency Comment Spec In Lab Sriram Contreras MD CHEMISTRY ORDERABL ES Performing Organization Address City/State/[facility] Co de Phone Number [facility] [place] [address] * POCT Glucose (07/20/2017 3:13 AM EDT) POC Glucose 114 65 - 199 mg/dL [facility] Comment: Supplemental ranges: <140 mg/dL before meals <180 mg/dL all other times of the day Blood specimen (specimen) 07/20/2017 3:13 AM EDT 07/20/2017 3:13 AM EDT Sriram Contreras MD POINT OF CARE TEST ORDERABLES [facility] [place] [address] * (ABNORMAL) BLOOD GAS 2 ARTERIAL (07/19/2017 11:36 PM EDT) pH Art 7.51(H) 7.35 - 7.45 [facility] pCO2 Art 29(L) 35 - 45 mmHg [facility] pO2 Art 77(L) 85 - 104 mmHg [facility] HCO3 Art 22.2 20.0 - 26.0 mmol/L [facility] BE Art -0.8 -3.0 - 3.0 mmol/L [facility] Hgb Blood Gas 14.7 13.7 - 16.5 gm/dL [facility] O2HB Art 94.7 94.0 - 97.0 % [facility] COHB Art 0.3 % [facility] Comment: Nonsmokers: 0.5-1.5% COHB Smokers: Variable, but usually less than 10% Toxic: 20-30% COHB Lethal: Greater than 60% COHB METHB Art 0.7 <=1.5 % [facility] Na Whole Blood 142 135 - 145 mmol/L [facility] K Whole Blood 3.8 3.5 - 5.0 mmol/L [facility] Comment: Please note: Patients with WBC >100,000 may have falsely elevated Potassium levels. Contact the Clinical Chemistry Laboratory if there are any questions. ICa Whole Blood 1.19 1.15 - 1.33 mmol/L [facility] Comment: Note: ??Total bilirubin higher than 20 mg/dL may lead to falsely low ionized calcium. CL Whole Blood 109(H) 98 - 107 mmol/L [facility] Gluc Whole Bld 125 65 - 199 mg/dL [facility] Comment:Diabetes: >=200 mg/d L plus symptoms. Lactate WB 1.6 0.5 - 2.2 mmol/L [facility] FIO2 Art 50 % [facility] PF Ratio Art 154 [facility] Blood specimen (specimen) 07/19/2017 11:36 PM EDT 07/19/2017 11:36 PM EDT Sriram Contreras MD CHEMISTRY ORDERABL ES Performing Organization Address [facility] Co de Phone Number [facility] [place] [address] * POCT Glucose (07/19/2017 11:31 PM EDT) POC Glucose 110 65 - 199 mg/dL [facility] Comment: Supplemental ranges: <140 mg/dL before meals <180 mg/dL all other times of the day Blood specimen (specimen) 07/19/2017 11:31 PM EDT 07/19/2017 11:31 PM EDT Sriram Contreras MD POINT OF CARE TEST ORDERABLES Performing Organization Address [facility] Co de Phone Number [facility] [place] [address] * Potassium (07/19/2017 11:30 PM EDT) Potassium 3.9 3.5 - 5.0 mmol/L [facility] Comment: Please note: ??Patients with WBC >100,000 may have falsely elevated Potassium levels. ??For accurate Potassium quantification in these patients send serum separator tube (gold top) for subsequent determinations. ??Contact the Clinical Chemistry Laboratory if there are any questions. Blood specimen (specimen) 07/19/2017 11:30 PM EDT 07/19/2017 11:39 PM EDT Narrative Resulting Agency Comment Spec In Lab Sriram Contreras MD CHEMISTRY ORDERABL ES Performing Organization Address [facility] Co de Phone Number [facility] [place] [address] * POCT Glucose (07/19/2017 7:45 PM EDT) POC Glucose 100 65 - 199 mg/dL [facility] Comment: Supplemental ranges: <140 mg/dL before meals <180 mg/dL all other times of the day Blood specimen (specimen) 07/19/2017 7:45 PM EDT 07/19/2017 7:45 PM EDT Sriram Contreras MD POINT OF CARE TEST ORDERABLES Performing Organization Address City/[facility]/ZIP Co de Phone Number [facility] [place] [address] * Blood culture (07/19/2017 7:00 PM EDT) Blood Culture No growth at 5 days. [facility] Blood specimen (specimen) STRUCTURE OF LEFT WRIST REGION / Unknown 07/19/2017 7:00 PM EDT 07/19/2017 7:50 PM EDT Narrative Resulting Agency Comment Spec In Lab Sriram Contreras MD MICROBIOLOGY - BLO OD ORDERABLES Performing Organization Address [facility] Co de Phone Number [facility] [place] [address] * Blood culture (07/19/2017 6:50 PM EDT) Blood Culture No growth at 5 days. [facility] Blood specimen (specimen) STRUCTURE OF RIGHT WRIST REGION / Unknown 07/19/2017 6:50 PM EDT 07/19/2017 7:51 PM EDT Narrative Resulting Agency Comment Spec In Lab Sriram Contreras MD MICROBIOLOGY - BLO OD ORDERABLES Performing Organization Address [facility] Co de Phone Number [facility] [place] [address] * XR Chest PA or AP 1 view (07/19/2017 6:35 PM EDT) Anatomical Region Laterality Modality Chest N/A Digital Radiogra phy Impressions 07/19/2017 7:00 PM EDT Likely increasing pulmonary edema. ETT appropriate position Narrative 07/19/2017 7:00 PM EDT EXAMINATION: XR CHEST PA OR AP 1 VIEW CLINICAL HISTORY: s/p intubation TECHNIQUE: AP semiupright COMPARISON: Study performed earlier today FINDINGS: The ET tube is in appropriate position. Feeding tube is within the body of the stomach. There's been increase in the bilateral pulmonary opacities since patient's prior study. No pneumothorax. Some combination of LEFT lower lobe atelectasis and a LEFT lower lobe effusion Procedure Note Shena Little MD - 07/19/2017 EXAMINATION: XR CHEST PA OR AP 1 VIEW CLINICAL HISTORY: s/p intubation TECHNIQUE: AP semiupright COMPARISON: Study performed earlier today FINDINGS: The ET tube is in appropriate position. Feeding tube is within the body ofthe stomach. There's been increase in the bilateral pulmonary opacitiessince patient's prior study. No pneumothorax. Some combination of LEFT lowerlobe atelectasis and a LEFT lower lobe effusion IMPRESSION Likely increasing pulmonary edema. ETT appropriate position Sriram Contreras MD IMG DX ORDERABLES * (ABNORMAL) BLOOD GAS 2 ARTERIAL (07/19/2017 5:12 PM EDT) pH Art 7.49(H) 7.35 - 7.45 [facility] pCO2 Art 32(L) 35 - 45 mmHg [facility] pO2 Art 66(L) 85 - 104 mmHg [facility] HCO3 Art 23.2 20.0 - 26.0 mmol/L [facility] BE Art -0.2 -3.0 - 3.0 mmol/L [facility] Hgb Blood Gas 15.5 13.7 - 16.5 gm/dL [facility] O2HB Art 93.1(L) 94.0 - 97.0 % [facility] COHB Art 0.4 % [facility] Comment: Nonsmokers: 0.5-1.5% COHB Smokers: Variable, but usually less than 10% Toxic: 20-30% COHB Lethal: Greater than 60% COHB METHB Art 0.6 <=1.5 % [facility] Na Whole Blood 158(H) 135 - 145 mmol/L [facility] K Whole Blood 4.0 3.5 - 5.0 mmol/L [facility] Comment: Please note: Patients with WBC >100,000 may have falsely elevated Potassium levels. Contact the Clinical Chemistry Laboratory if there are any questions. ICa Whole Blood 1.14(L) 1.15 - 1.33 mmol/L [facility] Comment: Note: ??Total bilirubin higher than 20 mg/dL may lead to falsely low ionized calcium. CL Whole Blood 120(H) 98 - 107 mmol/L [facility] Gluc Whole Bld 116 65 - 199 mg/dL [facility] Comment:Diabetes: >=200 mg/d L plus symptoms. Lactate WB 1.6 0.5 - 2.2 mmol/L [facility] FIO2 Art 100 % [facility] PF Ratio Art 66 [facility] Blood specimen (specimen) 07/19/2017 5:12 PM EDT 07/19/2017 5:12 PM EDT Sriram Contreras MD CHEMISTRY ORDERABL ES [facility] [place] [address] * EKG 12 Lead (07/19/2017 4:55 PM EDT) Ventricular rate 85 BPM MUSE SYSTEM Atrial Rate 326 BPM MUSE SYSTEM QRS Duration 92 ms MUSE SYSTEM Q-T Interval 388 ms MUSE SYSTEM QTC Calculated (Bezet) 461 ms MUSE SYSTEM Calculated R [place] 65 degrees MUSE SYSTEM Calculated T [place] 4 degrees MUSE SYSTEM INTERPRETATION Atrial fibrillation with premature ventricular or aberrantly conducted complexes Nonspecific ST abnormality Abnormal ECG When compared with ECG of 16-JUL-2017 16:46, Atrial fibrillation has replaced Sinus rhythm ST now depressed in Inferior leads Nonspecific T wave abnormality now evident in Inferior leads Confirmed by MD DUSTY, EDI ([id number]) on 07/21/2017 8:04:44 PM MUSE SYSTEM 07/19/2017 4:55 PM EDT 07/21/2017 8:04 PM EDT Sriram Contreras MD ECG ORDERABLES MUSE SYSTEM * Phosphorus (07/19/2017 4:50 PM EDT) Phosphorus 3.0 2.5 - 4.5 mg/dL [facility] Blood specimen (specimen) 07/19/2017 4:50 PM EDT 07/19/2017 5:05 PM EDT Narrative Resulting Agency Comment Spec In Lab Sriram Contreras MD CHEMISTRY ORDERABL ES Performing Organization Address [facility] Co de Phone Number [facility] [place] [address] * (ABNORMAL) Basic Metabolic Panel (non-fasting) (07/19/2017 4:50 PM EDT) [facility] Glucose Lvl 118 65 - 199 mg/dL [facility] Comment:Diabetes: >=200 mg/d L plus symptoms BUN 19 10 - 20 mg/dL [facility] Creatinine 0.79(L) 0.80 - 1.50 mg/dL [facility] Comment: Please note that the pediatric reference intervals supplied above were not validated at [facility]. Results from pediatric patients should be interpreted in conjunction to the patient's age, height and muscle mass. Sodium 144 135 - 145 mmol/L [facility] Potassium 3.5 3.5 - 5.0 mmol/L [facility] Comment: Please note: ??Patients with WBC >100,000 may have falsely elevated Potassium levels. ??For accurate Potassium quantification in these patients send serum separator tube (gold top) for subsequent determinations. ??Contact the Clinical Chemistry Laboratory if there are any questions. Chloride 106 98 - 107 mmol/L [facility] CO2 23 22 - 31 mmol/L [facility] Anion Gap 15 5 - 15 mmol/L [facility] Calcium 8.7 8.5 - 10.5 mg/dL [facility] Estimated GFR >60 >=60 [facility] Comment: This estimated GFR (eGFR) value was calculated using the MDRD equation which has been validated on patients between the ages of 18 and 70. The MDRD should not be used to assess kidney function in patients < 18 years of age or in patients with extremes of body mass, or in patients with acute kidney failure. This value should be multiplied by 1.2 for patients. For further information please copy and paste the following links into your internet browser. [email or web address] [email or web address] Blood specimen (specimen) 07/19/2017 4:50 PM EDT 07/19/2017 5:05 PM EDT Narrative Resulting Agency Comment Spec In Lab Sriram Contreras MD CHEMISTRY ORDERABL ES Performing Organization Address [facility] de Phone Number [facility] [place] [address] * Magnesium (07/19/2017 4:50 PM EDT) Magnesium 0.86 0.69 - 1.07 mmol/L [facility] Blood specimen (specimen) 07/19/2017 4:50 PM EDT 07/19/2017 5:05 PM EDT Narrative Resulting Agency Comment Spec In Lab Sriram Contreras MD CHEMISTRY ORDERABL ES Performing Organization Address [facility] Co de Phone Number [facility] [place] [address] * POCT Glucose (07/19/2017 3:37 PM EDT) POC Glucose 101 65 - 199 mg/dL [facility] Comment: Supplemental ranges: <140 mg/dL before meals <180 mg/dL all other times of the day Blood specimen (specimen) 07/19/2017 3:37 PM EDT 07/19/2017 3:37 PM EDT Sriram Contreras MD POINT OF CARE TEST ORDERABLES [facility] [place] [address] * XR Chest PA or AP 1 view (07/19/2017 12:53 PM EDT) Anatomical Region Laterality Modality Chest N/A Digital Radiogra phy Impressions 07/19/2017 1:07 PM EDT Mildly improved patchy airspace opacities bilaterally which may relate to improving pulmonary edema with superimposed infection difficult to exclude. Narrative 07/19/2017 1:07 PM EDT EXAMINATION: XR CHEST PA OR AP 1 VIEW CLINICAL HISTORY: PaO2 59 on HFNC - eval for hypoxia TECHNIQUE: AP view of the chest. COMPARISON: July 17, 2017. FINDINGS: Patchy airspace opacities bilaterally are redemonstrated with unchanged distribution but mild interval improvement in aeration. Feeding tube passes into the abdomen without the tip imaged. The heart size is stable. The pulmonary vasculature is less distinct. Procedure Note Andres Bhatia MD - 07/19/2017 EXAMINATION: XR CHEST PA OR AP 1 VIEW CLINICAL HISTORY: PaO2 59 on HFNC - eval for hypoxia TECHNIQUE: AP view of the chest. COMPARISON: July 17, 2017. FINDINGS: Patchy airspace opacities bilaterally are redemonstrated with unchanged distribution but mild interval improvement in aeration. Feeding tubepasses into the abdomen without the tip imaged. The heart size is stable. Thepulmonary vasculature is less distinct. IMPRESSION Mildly improved patchy airspace opacities bilaterally which may relateto improving pulmonary edema with superimposed infection difficult toexclude. Sriram Contreras MD IMG DX ORDERABLES * POCT Glucose (07/19/2017 12:36 PM EDT) POC Glucose 100 65 - 199 mg/dL [facility] Comment: Supplemental ranges: <140 mg/dL before meals <180 mg/dL all other times of the day Blood specimen (specimen) 07/19/2017 12:36 PM EDT 07/19/2017 12:36 PM EDT Sriram Contreras MD POINT OF CARE TEST ORDERABLES Performing Organization Address [facility]/ZIP Co de Phone Number [facility] [place] [address] * Potassium (07/19/2017 12:30 PM EDT) Potassium 3.7 3.5 - 5.0 mmol/L [facility] Comment: Please note: ??Patients with WBC >100,000 may have falsely elevated Potassium levels. ??For accurate Potassium quantification in these patients send serum separator tube (gold top) for subsequent determinations. ??Contact the Clinical Chemistry Laboratory if there are any questions. Blood specimen (specimen) 07/19/2017 12:30 PM EDT 07/19/2017 12:45 PM EDT Narrative Resulting Agency Comment Spec In Lab Sriram Contreras MD CHEMISTRY ORDERABL ES Performing Organization Address [facility] Co de Phone Number [facility] [place] [address] * (ABNORMAL) BLOOD GAS 2 ARTERIAL (07/19/2017 12:17 PM EDT) pH Art 7.50(H) 7.35 - 7.45 [facility] pCO2 Art 32(L) 35 - 45 mmHg [facility] pO2 Art 60(L) 85 - 104 mmHg [facility] HCO3 Art 23.7 20.0 - 26.0 mmol/L [facility] BE Art 0.5 -3.0 - 3.0 mmol/L [facility] Hgb Blood Gas 14.8 13.7 - 16.5 gm/dL [facility] O2HB Art 91.1(L) 94.0 - 97.0 % [facility] COHB Art 0.1 % [facility] Comment: Nonsmokers: 0.5-1.5% COHB Smokers: Variable, but usually less than 10% Toxic: 20-30% COHB Lethal: Greater than 60% COHB METHB Art 0.6 <=1.5 % [facility] Na Whole Blood 145 135 - 145 mmol/L [facility] K Whole Blood 3.7 3.5 - 5.0 mmol/L [facility] Comment: Please note: Patients with WBC >100,000 may have falsely elevated Potassium levels. Contact the Clinical Chemistry Laboratory if there are any questions. ICa Whole Blood 1.16 1.15 - 1.33 mmol/L [facility] Comment: Note: ??Total bilirubin higher than 20 mg/dL may lead to falsely low ionized calcium. CL Whole Blood 109(H) 98 - 107 mmol/L [facility] Gluc Whole Bld 115 65 - 199 mg/dL [facility] Comment:Diabetes: >=200 mg/d L plus symptoms. Lactate WB 1.3 0.5 - 2.2 mmol/L [facility] FIO2 Art 45 % [facility] PF Ratio Art 133 [facility] Blood specimen (specimen) 07/19/2017 12:17 PM EDT 07/19/2017 12:17 PM EDT Sriram Contreras MD CHEMISTRY ORDERABL ES [facility] [place] [address] * Potassium (07/19/2017 8:50 AM EDT) Potassium 3.8 3.5 - 5.0 mmol/L [facility] Comment: Please note: ??Patients with WBC >100,000 may have falsely elevated Potassium levels. ??For accurate Potassium quantification in these patients send serum separator tube (gold top) for subsequent determinations. ??Contact the Clinical Chemistry Laboratory if there are any questions. Blood specimen (specimen) Venous Draw / Unknown 07/19/2017 8:50 AM EDT 07/19/2017 9:17 AM EDT Narrative Resulting Agency Comment Spec In Lab Sriram Contreras MD CHEMISTRY ORDERABL ES Performing Organization Address City/[facility]/ZIP Co de Phone Number [facility] [place] [address] * Folate, serum (07/19/2017 8:50 AM EDT) Folate Lvl 16.6 4.8 - 24.2 ng/mL [facility] Blood specimen (specimen) 07/19/2017 8:50 AM EDT 07/19/2017 9:11 AM EDT Narrative Resulting Agency Comment Spec In Lab Sriram Contreras MD CHEMISTRY ORDERABL ES Performing Organization Address [facility] Co de Phone Number [facility] [place] [address] * Vitamin B12 (07/19/2017 8:50 AM EDT) Vitamin B-12 468 207 - 974 pg/mL [facility] Blood specimen (specimen) 07/19/2017 8:50 AM EDT 07/19/2017 9:11 AM EDT Narrative Resulting Agency Comment Spec In Lab Sriram Contreras MD CHEMISTRY ORDERABL ES Performing Organization Address [facility] Co de Phone Number [facility] [place] [address] * (ABNORMAL) TSH (07/19/2017 8:50 AM EDT) TSH 6.80(H) 0.27 - 4.20 mlU/ML [facility] Blood specimen (specimen) 07/19/2017 8:50 AM EDT 07/19/2017 9:11 AM EDT Narrative Resulting Agency Comment Spec In Lab Sriram Contreras MD CHEMISTRY ORDERABL ES Performing Organization Address City/[facility]/ZIP Co de Phone Number [facility] [place] [address] * Urine Hold (07/19/2017 8:07 AM EDT) Urine Hold Sample in lab. [facility] Urine specimen (specimen) Urine / Unknown 07/19/2017 8:07 AM EDT 07/19/2017 8:35 AM EDT Sriram Contreras MD URINE ORDERABLES [facility] [place] [address] * (ABNORMAL) Urinalysis with reflex Culture (07/19/2017 8:07 AM EDT) Glucose UA Negative Negative mg/dL [facility] Protein UA 30(A) Negative mg/dL [facility] Bilirubin UA Negative Negative mg/dL [facility] Comment: Clinical correlation required for positive Urine Bilirubin results as false positive may occur with some drugs and drug related products. If a false positive is suspected a serum total bilirubin should be considered if clinically indicated. Urobilinogen UA >=4.0(A) Normal mg/dL [facility] pH UA 7.0 5.0 - 8.0 [facility] Blood UA Moderate(A) Negative mg/dL [facility] Ketones UA Negative Negative mg/dL [facility] Nitrite UA Negative Negative [facility] Leukocytes UA Trace(A) Negative mcL [facility] Appearance UA Clear Clear [facility] Spec [place] UA 1.025 1.002 - 1.030 [facility] Color UA Yellow Yellow [facility] RBC UA 161(H) 0 - 3 /HPF [facility] WBC UA 1 0 - 3 /HPF [facility] Culture Reflexed No [facility] Urine specimen obtained via indwelling urinary catheter (specimen) 07/19/2017 8:07 AM EDT 07/19/2017 8:34 AM EDT Narrative Resulting Agency Comment Spec In Lab Sriram Contreras MD URINE ORDERABLES Performing Organization Address [facility]/ZIP Co de Phone Number [facility] [place] [address] * POCT Glucose (07/19/2017 7:42 AM EDT) POC Glucose 99 65 - 199 mg/dL [facility] Comment: Supplemental ranges: <140 mg/dL before meals <180 mg/dL all other times of the day Blood specimen (specimen) 07/19/2017 7:42 AM EDT 07/19/2017 7:42 AM EDT Sriram Contreras MD POINT OF CARE TEST ORDERABLES Performing Organization Address [facility] Co de Phone Number [facility] [place] [address] * POCT Glucose (07/19/2017 4:11 AM EDT) POC Glucose 93 65 - 199 mg/dL [facility] Comment: Supplemental ranges: <140 mg/dL before meals <180 mg/dL all other times of the day Blood specimen (specimen) 07/19/2017 4:11 AM EDT 07/19/2017 4:11 AM EDT Sriram Contreras MD POINT OF CARE TEST ORDERABLES Performing Organization Address City/[facility] Co de Phone Number [facility] [place] [address] * (ABNORMAL) Differential, Automated (07/19/2017 2:30 AM EDT) Neutrophils % 77.9 % [facility] Neutr Abs (ANC) 9.99(H) 1.70 - 6.10 x10(3)/mc L [facility] Lymphocytes % 9.8 % [facility] Lymphocytes Abs 1.2 0.9 - 3.2 x10(3)/mc L [facility] Monocytes % 11.5 % [facility] Monocyte Abs 1.5(H) 0.3 - 0.9 x10(3)/[facility] Eosinophils % 0.1 % [facility] Eosinophils Abs 0.0 0.0 - 0.4 x10(3)/[facility] Basophils % 0.2 % [facility] Basophils Abs 0.0 0.0 - 0.1 x10(3)/[facility] Immature Gran % 0.50 % [facility] Comment: Immature granulocytes(IG's)percentage and absolute count will include metamyelocytes, myelocytes, and promyelocytes. Blood smears from CBCs yielding IG's will be scanned manually for concordance. If this scan disagrees with the automated IG or if promyelocytes are noted, a manual differential will be performed. Patti Gran Abs 0.07(H) 0.00 - 0.04 x10(3)/[facility] Blood specimen (specimen) 07/19/2017 2:30 AM EDT 07/19/2017 2:34 AM EDT Narrative Resulting Agency Comment Spec In Lab Sriram Contreras MD HEMATOLOGY ORDERAB LES [facility] [place] [address] * (ABNORMAL) Hemogram (07/19/2017 2:30 AM EDT) WBC 12.8(H) 4.0 - 9.5 x10(3)/[facility] RBC 4.30(L) 4.58 - 5.54 x10(6)/[facility] Hemoglobin 13.5(L) 13.7 - 16.5 gm/dL [facility] Hematocrit 38.6(L) 40.5 - 48.5 % [facility] MCV 89.8 82.9 - 93.1 fL [facility] MCH 31.4 27.5 - 32.1 pg [facility] MCHC 35.0 32.0 - 35.7 gm/dL [facility] Platelets 176 145 - 357 x10(3)/[facility] RDWSD 45.1(H) 36.0 - 45.0 fL [facility] RDWCV 13.9(H) 11.4 - 13.8 % [facility] MPV 9.8 7.6 - 12.9 fL [facility] nRBC % Auto 0.0 % [facility] nRBC Abs Auto 0.000 0.000 - 0.000 x10(3)/[facility] Blood specimen (specimen) 07/19/2017 2:30 AM EDT 07/19/2017 2:34 AM EDT Narrative Resulting Agency Comment Spec In Lab Sriram Contreras MD HEMATOLOGY ORDERAB LES Performing Organization Address City/State/[facility] Co de Phone Number [facility] [place] [address] * (ABNORMAL) Basic Metabolic Panel (non-fasting) (07/19/2017 2:30 AM EDT) Glucose Lvl 102 65 - 199 mg/dL [facility] Comment:Diabetes: >=200 mg/d L plus symptoms BUN 23(H) 10 - 20 mg/dL [facility] Creatinine 0.87 0.80 - 1.50 mg/dL [facility] Comment: Please note that the pediatric reference intervals supplied above were not validated at [facility]. Results from pediatric patients should be interpreted in conjunction to the patient's age, height and muscle mass. Sodium 144 135 - 145 mmol/L [facility] Potassium 3.4(L) 3.5 - 5.0 mmol/L [facility] Comment: Please note: ??Patients with WBC >100,000 may have falsely elevated Potassium levels. ??For accurate Potassium quantification in these patients send serum separator tube (gold top) for subsequent determinations. ??Contact the Clinical Chemistry Laboratory if there are any questions. Chloride 106 98 - 107 mmol/L [facility] CO2 23 22 - 31 mmol/L [facility] Anion Gap 15 5 - 15 mmol/L [facility] Calcium 8.5 8.5 - 10.5 mg/dL [facility] Estimated GFR >60 >=60 [facility] Comment: This estimated GFR (eGFR) value was calculated using the MDRD equation which has been validated on patients between the ages of 18 and 70. The MDRD should not be used to assess kidney function in patients < 18 years of age or in patients with extremes of body mass, or in patients with acute kidney failure. This value should be multiplied by 1.2 for patients. For further information please copy and paste the following links into your internet browser. [email or web address] Blood specimen (specimen) 07/19/2017 2:30 AM EDT 07/19/2017 2:34 AM EDT Narrative Resulting Agency Comment Spec In Lab Sriram Contreras MD CHEMISTRY ORDERABL ES Performing Organization Address [facility] Co de Phone Number [facility] [place] [address] * (ABNORMAL) Prealbumin (07/19/2017 2:30 AM EDT) Prealbumin 17(L) 20 - 40 mg/dL [facility] Comment: Prealbumin levels are generally lower in the pediatric population; adult concentrations are usually attained near puberty. Blood specimen (specimen) 07/19/2017 2:30 AM EDT 07/19/2017 2:34 AM EDT Narrative Resulting Agency Comment Spec In Lab Sriram Contreras MD CHEMISTRY ORDERABL ES Performing Organization Address City/[facility] Co de Phone Number [facility] [place] [address] * (ABNORMAL) BLOOD GAS 2 ARTERIAL (07/18/2017 11:53 PM EDT) pH Art 7.50(H) 7.35 - 7.45 [facility] pCO2 Art 32(L) 35 - 45 mmHg [facility] pO2 Art 61(L) 85 - 104 mmHg [facility] HCO3 Art 24.5 20.0 - 26.0 mmol/L [facility] BE Art 1.3 -3.0 - 3.0 mmol/L [facility] Hgb Blood Gas 14.1 13.7 - 16.5 gm/dL [facility] O2HB Art 90.9(L) 94.0 - 97.0 % [facility] COHB Art 0.3 % [facility] Comment: Nonsmokers: 0.5-1.5% COHB Smokers: Variable, but usually less than 10% Toxic: 20-30% COHB Lethal: Greater than 60% COHB METHB Art 0.7 <=1.5 % [facility] Na Whole Blood 144 135 - 145 mmol/L [facility] K Whole Blood 3.3(L) 3.5 - 5.0 mmol/L [facility] Comment: Please note: Patients with WBC >100,000 may have falsely elevated Potassium levels. Contact the Clinical Chemistry Laboratory if there are any questions. ICa Whole Blood 1.17 1.15 - 1.33 mmol/L [facility] Comment: Note: ??Total bilirubin higher than 20 mg/dL may lead to falsely low ionized calcium. CL Whole Blood 109(H) 98 - 107 mmol/L [facility] Gluc Whole Bld 104 65 - 199 mg/dL [facility] Comment:Diabetes: >=200 mg/d L plus symptoms. Lactate WB 1.3 0.5 - 2.2 mmol/L [facility] FIO2 Art 45 % [facility] PF Ratio Art 136 [facility] Blood specimen (specimen) 07/18/2017 11:53 PM EDT 07/18/2017 11:53 PM EDT Sriram Contreras MD CHEMISTRY ORDERABL ES Performing Organization Address [facility] de Phone Number [facility] [place] [address] * POCT Glucose (07/18/2017 11:49 PM EDT) POC Glucose 102 65 - 199 mg/dL [facility] Comment: Supplemental ranges: <140 mg/dL before meals <180 mg/dL all other times of the day Blood specimen (specimen) 07/18/2017 11:49 PM EDT 07/18/2017 11:49 PM EDT Sriram Contreras MD POINT OF CARE TEST ORDERABLES Performing Organization Address [facility] de Phone Number [facility] [place] [address] * POCT Glucose (07/18/2017 8:44 PM EDT) POC Glucose 108 65 - 199 mg/dL [facility] Comment: Supplemental ranges: <140 mg/dL before meals <180 mg/dL all other times of the day Blood specimen (specimen) 07/18/2017 8:44 PM EDT 07/18/2017 8:44 PM EDT Sriram Contreras MD POINT OF CARE TEST ORDERABLES Performing Organization Address [facility] de Phone Number [facility] [place] [address] * (ABNORMAL) BLOOD GAS 2 ARTERIAL (07/18/2017 5:22 PM EDT) pH Art 7.54(H) 7.35 - 7.45 [facility] pCO2 Art 31(L) 35 - 45 mmHg [facility] pO2 Art 55(L) 85 - 104 mmHg [facility] HCO3 Art 25.9 20.0 - 26.0 mmol/L [facility] BE Art 3.3(H) -3.0 - 3.0 mmol/L [facility] Hgb Blood Gas 14.2 13.7 - 16.5 gm/dL [facility] O2HB Art 90.3(L) 94.0 - 97.0 % [facility] COHB Art 0.3 % [facility] Comment: Nonsmokers: 0.5-1.5% COHB Smokers: Variable, but usually less than 10% Toxic: 20-30% COHB Lethal: Greater than 60% COHB METHB Art 0.5 <=1.5 % [facility] Na Whole Blood 144 135 - 145 mmol/L [facility] K Whole Blood 3.3(L) 3.5 - 5.0 mmol/L [facility] Comment: Please note: Patients with WBC >100,000 may have falsely elevated Potassium levels. Contact the Clinical Chemistry Laboratory if there are any questions. ICa Whole Blood 1.18 1.15 - 1.33 mmol/L [facility] Comment: Note: ??Total bilirubin higher than 20 mg/dL may lead to falsely low ionized calcium. CL Whole Blood 108(H) 98 - 107 mmol/L [facility] Gluc Whole Bld 130 65 - 199 mg/dL [facility] Comment:Diabetes: >=200 mg/d L plus symptoms. Lactate WB 1.6 0.5 - 2.2 mmol/L [facility] FIO2 Art 40 % [facility] PF Ratio Art 138 [facility] Blood specimen (specimen) 07/18/2017 5:22 PM EDT 07/18/2017 5:22 PM EDT Sriram Contreras MD CHEMISTRY ORDERABL ES [facility] [place] [address] * POCT Glucose (07/18/2017 3:42 PM EDT) POC Glucose 119 65 - 199 mg/dL [facility] Comment: Supplemental ranges: <140 mg/dL before meals <180 mg/dL all other times of the day Blood specimen (specimen) 07/18/2017 3:42 PM EDT 07/18/2017 3:42 PM EDT Sriram Contreras MD POINT OF CARE TEST ORDERABLES Performing Organization Address City/[facility] Co de Phone Number [facility] [place] [address] * POCT Glucose (07/18/2017 1:05 PM EDT) POC Glucose 118 65 - 199 mg/dL [facility] Comment: Supplemental ranges: <140 mg/dL before meals <180 mg/dL all other times of the day Blood specimen (specimen) 07/18/2017 1:05 PM EDT 07/18/2017 1:05 PM EDT Sriram Contreras MD POINT OF CARE TEST ORDERABLES Performing Organization Address City/[facility] Co de Phone Number [facility] [place] [address] * (ABNORMAL) BLOOD GAS 2 ARTERIAL (07/18/2017 11:47 AM EDT) pH Art 7.51(H) 7.35 - 7.45 [facility] pCO2 Art 33(L) 35 - 45 mmHg [facility] pO2 Art 94 85 - 104 mmHg [facility] HCO3 Art 25.1 20.0 - 26.0 mmol/L [facility] BE Art 2.0 -3.0 - 3.0 mmol/L [facility] Hgb Blood Gas 14.4 13.7 - 16.5 gm/dL [facility] O2HB Art 96.1 94.0 - 97.0 % [facility] COHB Art 0.3 % [facility] Comment: Nonsmokers: 0.5-1.5% COHB Smokers: Variable, but usually less than 10% Toxic: 20-30% COHB Lethal: Greater than 60% COHB METHB Art 0.6 <=1.5 % [facility] Na Whole Blood 141 135 - 145 mmol/L [facility] K Whole Blood 3.6 3.5 - 5.0 mmol/L [facility] Comment: Please note: Patients with WBC >100,000 may have falsely elevated Potassium levels. Contact the Clinical Chemistry Laboratory if there are any questions. ICa Whole Blood 1.17 1.15 - 1.33 mmol/L [facility] Comment: Note: ??Total bilirubin higher than 20 mg/dL may lead to falsely low ionized calcium. CL Whole Blood 104 98 - 107 mmol/L [facility] Gluc Whole Bld 228(H) 65 - 199 mg/dL [facility] Comment:Diabetes: >=200 mg/d L plus symptoms. Lactate WB 1.7 0.5 - 2.2 mmol/L [facility] FIO2 Art 50 % [facility] PF Ratio Art 188 [facility] Blood specimen (specimen) 07/18/2017 11:47 AM EDT 07/18/2017 11:47 AM EDT Sriram Contreras MD CHEMISTRY ORDERABL ES Performing Organization Address City/State/[facility] Co de Phone Number [facility] [place] [address] * (ABNORMAL) BLOOD GAS 2 ARTERIAL (07/18/2017 7:56 AM EDT) pH Art 7.50(H) 7.35 - 7.45 [facility] pCO2 Art 31(L) 35 - 45 mmHg [facility] pO2 Art 82(L) 85 - 104 mmHg [facility] HCO3 Art 24.2 20.0 - 26.0 mmol/L [facility] BE Art 1.0 -3.0 - 3.0 mmol/L [facility] Hgb Blood Gas 13.4(L) 13.7 - 16.5 gm/dL [facility] O2HB Art 95.3 94.0 - 97.0 % [facility] COHB Art 0.3 % [facility] Comment: Nonsmokers: 0.5-1.5% COHB Smokers: Variable, but usually less than 10% Toxic: 20-30% COHB Lethal: Greater than 60% COHB METHB Art 0.5 <=1.5 % [facility] Na Whole Blood 143 135 - 145 mmol/L [facility] K Whole Blood 3.7 3.5 - 5.0 mmol/L [facility] Comment: Please note: Patients with WBC >100,000 may have falsely elevated Potassium levels. Contact the Clinical Chemistry Laboratory if there are any questions. ICa Whole Blood 1.17 1.15 - 1.33 mmol/L [facility] Comment: Note: ??Total bilirubin higher than 20 mg/dL may lead to falsely low ionized calcium. CL Whole Blood 106 98 - 107 mmol/L [facility] Gluc Whole Bld 158 65 - 199 mg/dL [facility] Comment:Diabetes: >=200 mg/d L plus symptoms. Lactate WB 2.5(H) 0.5 - 2.2 mmol/L [facility] FIO2 Art 60 % [facility] PF Ratio Art 137 [facility] Blood specimen (specimen) 07/18/2017 7:56 AM EDT 07/18/2017 7:56 AM EDT Sriram Contreras MD CHEMISTRY ORDERABL ES [facility] [place] [address] * (ABNORMAL) BLOOD GAS 2 ARTERIAL (07/18/2017 3:55 AM EDT) pH Art 7.51(H) 7.35 - 7.45 [facility] pCO2 Art 34(L) 35 - 45 mmHg [facility] pO2 Art 95 85 - 104 mmHg [facility] HCO3 Art 26.4(H) 20.0 - 26.0 mmol/L [facility] BE Art 3.4(H) -3.0 - 3.0 mmol/L [facility] Hgb Blood Gas 14.2 13.7 - 16.5 gm/dL [facility] O2HB Art 96.4 94.0 - 97.0 % [facility] COHB Art 0.5 % [facility] Comment: Nonsmokers: 0.5-1.5% COHB Smokers: Variable, but usually less than 10% Toxic: 20-30% COHB Lethal: Greater than 60% COHB METHB Art 0.6 <=1.5 % [facility] Na Whole Blood 142 135 - 145 mmol/L [facility] K Whole Blood 3.6 3.5 - 5.0 mmol/L [facility] Comment: Please note: Patients with WBC >100,000 may have falsely elevated Potassium levels. Contact the Clinical Chemistry Laboratory if there are any questions. ICa Whole Blood 1.17 1.15 - 1.33 mmol/L [facility] Comment: Note: ??Total bilirubin higher than 20 mg/dL may lead to falsely low ionized calcium. CL Whole Blood 105 98 - 107 mmol/L [facility] Gluc Whole Bld 178 65 - 199 mg/dL [facility] Comment:Diabetes: >=200 mg/d L plus symptoms. Lactate WB 3.0(H) 0.5 - 2.2 mmol/L [facility] FIO2 Art 70 % [facility] PF Ratio Art 136 [facility] Blood specimen (specimen) 07/18/2017 3:55 AM EDT 07/18/2017 3:55 AM EDT Sriram Contreras MD CHEMISTRY ORDERABL ES [facility] [place] [address] * (ABNORMAL) POCT Glucose (07/18/2017 3:42 AM EDT) [facility] POC Glucose 205(H) 65 - 199 mg/dL [facility] Comment: Supplemental ranges: <140 mg/dL before meals <180 mg/dL all other times of the day Blood specimen (specimen) 07/18/2017 3:42 AM EDT 07/18/2017 3:42 AM EDT Sriram Contreras MD POINT OF CARE TEST ORDERABLES Performing Organization Address [facility] Co de Phone Number [facility] [place] [address] * (ABNORMAL) Magnesium (07/18/2017 2:20 AM EDT) [facility] Magnesium 1.09(H) 0.69 - 1.07 mmol/L [facility] Blood specimen (specimen) Venous Draw / Unknown 07/18/2017 2:20 AM EDT 07/18/2017 2:31 AM EDT Narrative Resulting Agency Comment Spec In Lab Sriram Contreras MD CHEMISTRY ORDERABL ES Performing Organization Address [facility] Co de Phone Number [facility] [place] [address] * (ABNORMAL) Differential, Automated (07/18/2017 2:20 AM EDT) [facility] Neutrophils % 86.8 % [facility] Neutr Abs (ANC) 9.28(H) 1.70 - 6.10 x10(3)/mc L [facility] Lymphocytes % 5.8 % [facility] Lymphocytes Abs 0.6(L) 0.9 - 3.2 x10(3)/mc L [facility] Monocytes % 6.5 % [facility] Monocyte Abs 0.7 0.3 - 0.9 x10(3)/mc L [facility] Eosinophils % 0.0 % [facility] Eosinophils Abs 0.0 0.0 - 0.4 x10(3)/[facility] Basophils % 0.2 % [facility] Basophils Abs 0.0 0.0 - 0.1 x10(3)/[facility] Immature Gran % 0.70 % [facility] Comment: Immature granulocytes(IG's)percentage and absolute count will include metamyelocytes, myelocytes, and promyelocytes. Blood smears from CBCs yielding IG's will be scanned manually for concordance. If this scan disagrees with the automated IG or if promyelocytes are noted, a manual differential will be performed. Patti Gran Abs 0.08(H) 0.00 - 0.04 x10(3)/[facility] Blood specimen (specimen) 07/18/2017 2:20 AM EDT 07/18/2017 2:28 AM EDT Narrative Resulting Agency Comment Spec In Lab Sriram Contreras MD HEMATOLOGY ORDERAB LES Performing Organization Address City/State/[facility] Co de Phone Number [facility] [place] [address] * (ABNORMAL) Hemogram (07/18/2017 2:20 AM EDT) WBC 10.7(H) 4.0 - 9.5 x10(3)/[facility] RBC 4.39(L) 4.58 - 5.54 x10(6)/[facility] Hemoglobin 13.6(L) 13.7 - 16.5 gm/dL [facility] Hematocrit 38.8(L) 40.5 - 48.5 % [facility] MCV 88.4 82.9 - 93.1 fL [facility] MCH 31.0 27.5 - 32.1 pg [facility] MCHC 35.1 32.0 - 35.7 gm/dL [facility] Platelets 147 145 - 357 x10(3[place] RDWSD 43.4 36.0 - 45.0 [facility] RDWCV 13.3 11.4 - 13.8 % [facility] MPV 10.9 7.6 - 12.9 [facility] nRBC % Auto 0.0 % [facility] nRBC Abs Auto 0.000 0.000 - 0.000 x10(3)/[facility] Blood specimen (specimen) 07/18/2017 2:20 AM EDT 07/18/2017 2:28 AM EDT Narrative Resulting Agency Comment Spec In Lab Sriram Contreras MD HEMATOLOGY ORDERAB LES [facility] [place] [address] * (ABNORMAL) Basic Metabolic Panel (non-fasting) (07/18/2017 2:20 AM EDT) Glucose Lvl 181 65 - 199 mg/dL [facility] Comment:Diabetes: >=200 mg/d L plus symptoms BUN 22(H) 10 - 20 mg/dL [facility] Creatinine 0.74(L) 0.80 - 1.50 mg/dL [facility] Comment: Please note that the pediatric reference intervals supplied above were not validated at [facility]. Results from pediatric patients should be interpreted in conjunction to the patient's age, height and muscle mass. Sodium 145 135 - 145 mmol/L [facility] Potassium 3.7 3.5 - 5.0 mmol/L [facility] Comment: Please note: ??Patients with WBC >100,000 may have falsely elevated Potassium levels. ??For accurate Potassium quantification in these patients send serum separator tube (gold top) for subsequent determinations. ??Contact the Clinical Chemistry Laboratory if there are any questions. Chloride 105 98 - 107 mmol/L [facility] CO2 25 22 - 31 mmol/L [facility] Anion Gap 15 5 - 15 mmol/L [facility] Calcium 8.8 8.5 - 10.5 mg/dL [facility] Estimated GFR >60 >=60 [facility] Comment: This estimated GFR (eGFR) value was calculated using the MDRD equation which has been validated on patients between the ages of 18 and 70. The MDRD should not be used to assess kidney function in patients < 18 years of age or in patients with extremes of body mass, or in patients with acute kidney failure. This value should be multiplied by 1.2 for patients. For further information please copy and paste the following links into your internet browser. [email or web address] Blood specimen (specimen) 07/18/2017 2:20 AM EDT 07/18/2017 2:28 AM EDT Narrative Resulting Agency Comment Spec In Lab Sriram Contreras MD CHEMISTRY ORDERABL ES [facility] [place] [address] * (ABNORMAL) BLOOD GAS 2 ARTERIAL (07/17/2017 11:36 PM EDT) pH Art 7.51(H) 7.35 - 7.45 [facility] pCO2 Art 32(L) 35 - 45 mmHg [facility] pO2 Art 60(L) 85 - 104 mmHg [facility] HCO3 Art 25.0 20.0 - 26.0 mmol/L [facility] BE Art 2.0 -3.0 - 3.0 mmol/L [facility] Hgb Blood Gas 14.8 13.7 - 16.5 gm/dL [facility] O2HB Art 92.1(L) 94.0 - 97.0 % [facility] COHB Art 0.3 % [facility] Comment: Nonsmokers: 0.5-1.5% COHB Smokers: Variable, but usually less than 10% Toxic: 20-30% COHB Lethal: Greater than 60% COHB METHB Art 0.5 <=1.5 % [facility] Na Whole Blood 143 135 - 145 mmol/L [facility] K Whole Blood 3.7 3.5 - 5.0 mmol/L [facility] Comment: Please note: Patients with WBC >100,000 may have falsely elevated Potassium levels. Contact the Clinical Chemistry Laboratory if there are any questions. ICa Whole Blood 1.16 1.15 - 1.33 mmol/L [facility] Comment: Note: ??Total bilirubin higher than 20 mg/dL may lead to falsely low ionized calcium. CL Whole Blood 104 98 - 107 mmol/L [facility] Gluc Whole Bld 202(H) 65 - 199 mg/dL [facility] Comment:Diabetes: >=200 mg/d L plus symptoms. Lactate WB 2.9(H) 0.5 - 2.2 mmol/L [facility] FIO2 Art 60 % [facility] PF Ratio Art 100 [facility] Blood specimen (specimen) 07/17/2017 11:36 PM EDT 07/17/2017 11:36 PM EDT Sriram Contreras MD CHEMISTRY ORDERABL ES Performing Organization Address [facility] Co de Phone Number [facility] [place] [address] * (ABNORMAL) POCT Glucose (07/17/2017 11:34 PM EDT) POC Glucose 202(H) 65 - 199 mg/dL [facility] Comment: Supplemental ranges: <140 mg/dL before meals <180 mg/dL all other times of the day Blood specimen (specimen) 07/17/2017 11:34 PM EDT 07/17/2017 11:34 PM EDT Sriram Contreras MD POINT OF CARE TEST ORDERABLES Performing Organization Address City/[facility]/ZIP Co de Phone Number [facility] [place] [address] * Magnesium (07/17/2017 10:10 PM EDT) Magnesium 0.87 0.69 - 1.07 mmol/L [facility] Blood specimen (specimen) 07/17/2017 10:10 PM EDT 07/17/2017 10:18 PM EDT Narrative Resulting Agency Comment Spec In Lab Sriram Contreras MD CHEMISTRY ORDERABL ES [facility] [place] [address] * (ABNORMAL) BLOOD GAS 2 ARTERIAL (07/17/2017 7:51 PM EDT) pH Art 7.49(H) 7.35 - 7.45 [facility] pCO2 Art 36 35 - 45 mmHg [facility] pO2 Art 67(L) 85 - 104 mmHg [facility] HCO3 Art 26.8(H) 20.0 - 26.0 mmol/L [facility] BE Art 3.4(H) -3.0 - 3.0 mmol/L [facility] Hgb Blood Gas 14.3 13.7 - 16.5 gm/dL [facility] O2HB Art 93.4(L) 94.0 - 97.0 % [facility] COHB Art 0.3 % [facility] Comment: Nonsmokers: 0.5-1.5% COHB Smokers: Variable, but usually less than 10% Toxic: 20-30% COHB Lethal: Greater than 60% COHB METHB Art 0.6 <=1.5 % [facility] Na Whole Blood 143 135 - 145 mmol/L [facility] K Whole Blood 3.7 3.5 - 5.0 mmol/L [facility] Comment: Please note: Patients with WBC >100,000 may have falsely elevated Potassium levels. Contact the Clinical Chemistry Laboratory if there are any questions. ICa Whole Blood 1.17 1.15 - 1.33 mmol/L [facility] Comment: Note: ??Total bilirubin higher than 20 mg/dL may lead to falsely low ionized calcium. CL Whole Blood 106 98 - 107 mmol/L [facility] Gluc Whole Bld 178 65 - 199 mg/dL [facility] Comment:Diabetes: >=200 mg/d L plus symptoms. Lactate WB 2.8(H) 0.5 - 2.2 mmol/L [facility] FIO2 Art 60 % [facility] PF Ratio Art 112 [facility] Blood specimen (specimen) 07/17/2017 7:51 PM EDT 07/17/2017 7:51 PM EDT Sriram Contreras MD CHEMISTRY ORDERABL ES Performing Organization Address [facility] Phone Number [facility] [place] [address] * POCT Glucose (07/17/2017 7:50 PM EDT) POC Glucose 153 65 - 199 mg/dL [facility] Comment: Supplemental ranges: <140 mg/dL before meals <180 mg/dL all other times of the day Blood specimen (specimen) 07/17/2017 7:50 PM EDT 07/17/2017 7:50 PM EDT Sriram Contreras MD POINT OF CARE TEST ORDERABLES Performing Organization Address [facility] Co de Phone Number [facility] [place] [address] * (ABNORMAL) BLOOD GAS 2 ARTERIAL (07/17/2017 3:20 PM EDT) pH Art 7.51(H) 7.35 - 7.45 [facility] pCO2 Art 31(L) 35 - 45 mmHg [facility] pO2 Art 67(L) 85 - 104 mmHg [facility] HCO3 Art 24.3 20.0 - 26.0 mmol/L [facility] BE Art 1.3 -3.0 - 3.0 mmol/L [facility] Hgb Blood Gas 14.1 13.7 - 16.5 gm/dL [facility] O2HB Art 93.8(L) 94.0 - 97.0 % [facility] COHB Art 0.3 % [facility] Comment: Nonsmokers: 0.5-1.5% COHB Smokers: Variable, but usually less than 10% Toxic: 20-30% COHB Lethal: Greater than 60% COHB METHB Art 0.5 <=1.5 % [facility] Na Whole Blood 141 135 - 145 mmol/L [facility] K Whole Blood 3.7 3.5 - 5.0 mmol/L [facility] Comment: Please note: Patients with WBC >100,000 may have falsely elevated Potassium levels. Contact the Clinical Chemistry Laboratory if there are any questions. ICa Whole Blood 1.15(L) 1.15 - 1.33 mmol/L [facility] Comment: Note: ??Total bilirubin higher than 20 mg/dL may lead to falsely low ionized calcium. CL Whole Blood 105 98 - 107 mmol/L [facility] Gluc Whole Bld 204(H) 65 - 199 mg/dL [facility] Comment:Diabetes: >=200 mg/d L plus symptoms. Lactate WB 2.0 0.5 - 2.2 mmol/L [facility] FIO2 Art 50 % [facility] PF Ratio Art 134 [facility] Blood specimen (specimen) 07/17/2017 3:20 PM EDT 07/17/2017 3:20 PM EDT Sriram Contreras MD CHEMISTRY ORDERABL ES [facility] [place] [address] * (ABNORMAL) BLOOD GAS 2 ARTERIAL (07/17/2017 12:50 PM EDT) pH Art 7.51(H) 7.35 - 7.45 [facility] pCO2 Art 30(L) 35 - 45 mmHg [facility] pO2 Art 52(L) 85 - 104 mmHg [facility] HCO3 Art 23.7 20.0 - 26.0 mmol/L [facility] BE Art 0.8 -3.0 - 3.0 mmol/L [facility] Hgb Blood Gas 14.0 13.7 - 16.5 gm/dL [facility] O2HB Art 89.4(L) 94.0 - 97.0 % [facility] COHB Art 0.3 % [facility] Comment: Nonsmokers: 0.5-1.5% COHB Smokers: Variable, but usually less than 10% Toxic: 20-30% COHB Lethal: Greater than 60% COHB METHB Art 0.5 <=1.5 % [facility] Na Whole Blood 140 135 - 145 mmol/L [facility] K Whole Blood 3.9 3.5 - 5.0 mmol/L [facility] Comment: Please note: Patients with WBC >100,000 may have falsely elevated Potassium levels. Contact the Clinical Chemistry Laboratory if there are any questions. ICa Whole Blood 1.18 1.15 - 1.33 mmol/L [facility] Comment: Note: ??Total bilirubin higher than 20 mg/dL may lead to falsely low ionized calcium. CL Whole Blood 106 98 - 107 mmol/L [facility] Gluc Whole Bld 195 65 - 199 mg/dL [facility] Comment:Diabetes: >=200 mg/d L plus symptoms. Lactate WB 2.3(H) 0.5 - 2.2 mmol/L [facility] FIO2 Art 50 % [facility] PF Ratio Art 104 [facility] Blood specimen (specimen) 07/17/2017 12:50 PM EDT 07/17/2017 12:50 PM EDT Sriram Contreras MD CHEMISTRY ORDERABL ES [facility] [place] [address] * XR Chest PA or AP 1 view (07/17/2017 12:33 PM EDT) Anatomical Region Laterality Modality Chest N/A Digital Radiogra phy Addenda Addendum by Stanislav Mulligan MD on 07/17/2017 5:29 PM EDT ADDENDUM #1 Addendum: FINDINGS: The endotracheal tube has been removed. There is temporary endotracheal catheter with its tip projecting of the right mainstem bronchus. No IJ catheter is identified. The feeding tube projects over the gastric body. Lung volume remain low. Patchy bilateral pulmonary opacities are not significant changed. The pulmonary vasculature remains indistinct. The cardiomediastinal silhouette is stable. No sizable pneumothorax is identified on this semiupright exam. A small right pleural effusion is suspected. IMPRESSION: 1. ??Persistent pulmonary edema. Superimposed infection cannot be excluded. 2. No pneumothorax identified on this semiupright exam. Small right pleural effusion suspected. ORIGINAL REPORT EXAMINATION: XR CHEST PA OR AP 1 VIEW CLINICAL HISTORY: Pls eval for pulm edema, PTX TECHNIQUE: Portable AP view of the chest COMPARISON: Multiple prior exams, most recently 07/16/2017 FINDINGS: The endotracheal tube has been removed. A right internal jugular vascular catheter has been placed with the tip projecting over the upper right atrium. The feeding tube projects over the gastric body. Lung volume remain low. Patchy bilateral pulmonary opacities are not significant changed. The pulmonary vasculature remains indistinct. The cardiomediastinal silhouette is stable. No sizable pneumothorax is identified on this semiupright exam. A small right pleural effusion is suspected. IMPRESSION: 1. ??Persistent pulmonary edema. Superimposed infection cannot be excluded. 2. ??No sizable pneumothorax identified on this semiupright exam. Small right pleural effusion suspected. I have personally reviewed the images and the residents interpretation, and agree with the findings. I have personally reviewed the image(s) and the residents interpretation and agree with the findings, STANISLAV MULLIGAN at 07/17/2017 2:14 PM Impressions 07/17/2017 2:14 PM EDT 1. ??Persistent pulmonary edema. Superimposed infection cannot be excluded. 2. ??No sizable pneumothorax identified on this semiupright exam. Small right pleural effusion suspected. I have personally reviewed the images and the residents interpretation, and agree with the findings. I have personally reviewed the image(s) and the residents interpretation and agree with the findings, STANISLAV MULLIGAN at 07/17/2017 2:14 PM Narrative 07/17/2017 2:14 PM EDT EXAMINATION: XR CHEST PA OR AP 1 VIEW CLINICAL HISTORY: Pls eval for pulm edema, PTX TECHNIQUE: Portable AP view of the chest COMPARISON: Multiple prior exams, most recently 07/16/2017 FINDINGS: The endotracheal tube has been removed. A right internal jugular vascular catheter has been placed with the tip projecting over the upper right atrium. The feeding tube projects over the gastric body. Lung volume remain low. Patchy bilateral pulmonary opacities are not significant changed. The pulmonary vasculature remains indistinct. The cardiomediastinal silhouette is stable. No sizable pneumothorax is identified on this semiupright exam. A small right pleural effusion is suspected. Procedure Note Stanislav Mulligan MD - 07/17/2017 EXAMINATION: XR CHEST PA OR AP 1 VIEW CLINICAL HISTORY: Pls eval for pulm edema, PTX TECHNIQUE: Portable AP view of the chest COMPARISON: Multiple prior exams, most recently 07/16/2017 FINDINGS: The endotracheal tube has been removed. A right internal jugularvascular catheter has been placed with the tip projecting over the upper rightatrium. The feeding tube projects over the gastric body. Lung volume remain low. Patchy bilateral pulmonary opacities are notsignificant changed. The pulmonary vasculature remains indistinct. Thecardiomediastinal silhouette is stable. No sizable pneumothorax is identified on thissemiupright exam. A small right pleural effusion is suspected. IMPRESSION 1. Persistent pulmonary edema. Superimposed infection cannot beexcluded. 2. No sizable pneumothorax identified on this semiupright exam. Smallright pleural effusion suspected. I have personally reviewed the images and the residents interpretation,and agree with the findings. I have personally reviewed the image(s) and the residents interpretationand agree with the findings, STANISLAV MULLIGAN at 07/17/2017 2:14 PM Sriram Contreras MD IMG DX ORDERABLES * (ABNORMAL) BLOOD GAS 2 ARTERIAL (07/17/2017 11:54 AM EDT) pH Art 7.48(H) 7.35 - 7.45 [facility] pCO2 Art 34(L) 35 - 45 mmHg [facility] pO2 Art 55(L) 85 - 104 mmHg [facility] HCO3 Art 24.7 20.0 - 26.0 mmol/L [facility] BE Art 1.2 -3.0 - 3.0 mmol/L [facility] Hgb Blood Gas 14.1 13.7 - 16.5 gm/dL [facility] O2HB Art 90.4(L) 94.0 - 97.0 % [facility] COHB Art 0.1 % [facility] Comment: Nonsmokers: 0.5-1.5% COHB Smokers: Variable, but usually less than 10% Toxic: 20-30% COHB Lethal: Greater than 60% COHB METHB Art 0.7 <=1.5 % [facility] Na Whole Blood 141 135 - 145 mmol/L [facility] K Whole Blood 4.2 3.5 - 5.0 mmol/L [facility] Comment: Please note: Patients with WBC >100,000 may have falsely elevated Potassium levels. Contact the Clinical Chemistry Laboratory if there are any questions. ICa Whole Blood 1.18 1.15 - 1.33 mmol/L [facility] Comment: Note: ??Total bilirubin higher than 20 mg/dL may lead to falsely low ionized calcium. CL Whole Blood 106 98 - 107 mmol/L [facility] Gluc Whole Bld 194 65 - 199 mg/dL [facility] Comment:Diabetes: >=200 mg/d L plus symptoms. Lactate WB 2.6(H) 0.5 - 2.2 mmol/L [facility] FIO2 Art 40 % [facility] PF Ratio Art 138 [facility] Blood specimen (specimen) 07/17/2017 11:54 AM EDT 07/17/2017 11:54 AM EDT Sriram Contreras MD CHEMISTRY ORDERABL ES [facility] [place] [address] * Cardiac Enzymes (07/17/2017 5:42 AM EDT) Troponin-T <0.01 0.00 - 0.00 ng/mL [facility] Comment: The 99th percentile for Troponin T is less than 0.01 ng/mL, any detectable cTnT concentration using this assay should be considered elevated. According to the third universal definition of myocardial infarction the following criteria with a clinical presentation consistent with acute myocardial ischemia meets the diagnosis for a myocardial infarction (IN). Detection of a rise and/or fall of cTnT, with at least one value greater than the 99th percentile (> or = 0.01) and with at least one of the following ?? Symptoms of ischemia ?? New or presumed new significant QK-gsdfjla-J wave (ST-T) changes or new left bundle branch block (LBBB) ?? Development of pathologic Q waves in the ECG ?? Imaging evidence of new loss of viable myocardium or new regional wall motion abnormality ?? Identification of an intracoronary thrombus by angiography or autopsy Samples for cTnT testing should be obtained serially upon first assessment and again 3 to 6 hours later. If the clinical suspicion is high and previous samples have been negative an additional sample may be indicated. Reference: Third [place] Definition of Myocardial Infarction. Journal of the [place] [employer] 2012;60:1581-98 CK, Total 47 0 - 200 unit/L [facility] Blood specimen (specimen) 07/17/2017 5:42 AM EDT 07/17/2017 5:42 AM EDT Narrative Resulting Agency Comment Spec In Lab Sriram Contreras MD CHEMISTRY ORDERABL ES Performing Organization Address City/[facility]/ZIP Co de Phone Number [facility] [place] [address] * (ABNORMAL) Differential, Automated (07/17/2017 12:30 AM EDT) Neutrophils % 90.5 % [facility] Neutr Abs (ANC) 8.62(H) 1.70 - 6.10 x10(3)/mc L [facility] Lymphocytes % 3.7 % [facility] Lymphocytes Abs 0.4(L) 0.9 - 3.2 x10(3)/[facility] Monocytes % 4.9 % [facility] Monocyte Abs 0.5 0.3 - 0.9 x10(3)/[facility] Eosinophils % 0.0 % [facility] Eosinophils Abs 0.0 0.0 - 0.4 x10(3)/[facility]OR[facility]ORY Basophils % 0.1 % [facility] Basophils Abs 0.0 0.0 - 0.1 x10(3)/[facility] Immature Gran % 0.80 % [facility] Comment: Immature granulocytes(IG's)percentage and absolute count will include metamyelocytes, myelocytes, and promyelocytes. Blood smears from CBCs yielding IG's will be scanned manually for concordance. If this scan disagrees with the automated IG or if promyelocytes are noted, a manual differential will be performed. Patti Gran Abs 0.08(H) 0.00 - 0.04 x10(3)/ L [facility] Blood specimen (specimen) 07/17/2017 12:30 AM EDT 07/17/2017 1:13 AM EDT Narrative Resulting Agency Comment Spec In Lab Sriram Contreras MD HEMATOLOGY ORDERAB LES Performing Organization Address [facility]/ZIP Co de Phone Number [facility] [place] [address] * (ABNORMAL) Hemogram (07/17/2017 12:30 AM EDT) WBC 9.5 4.0 - 9.5 x10(3)/[facility] RBC 3.98(L) 4.58 - 5.54 x10(6)/[facility] Hemoglobin 12.4(L) 13.7 - 16.5 gm/dL [facility] Hematocrit 36.7(L) 40.5 - 48.5 % [facility] MCV 92.2 82.9 - 93.1 fL [facility] MCH 31.2 27.5 - 32.1 pg [facility] MCHC 33.8 32.0 - 35.7 gm/dL [facility] Platelets 133(L) 145 - 357 x10(3)/[facility]ORY RDWSD 47.7(H) 36.0 - 45.0 [facility]ORY RDWCV 13.8 11.4 - 13.8 % [facility] MPV 10.9 7.6 - 12.9 [facility] nRBC % Auto 0.0 % [facility] nRBC Abs Auto 0.000 0.000 - 0.000 x10(3)/[facility] Blood specimen (specimen) 07/17/2017 12:30 AM EDT 07/17/2017 1:13 AM EDT Narrative Resulting Agency Comment Spec In Lab Sriram Contreras MD HEMATOLOGY ORDERAB LES [facility] [place] [address] * (ABNORMAL) Basic Metabolic Panel (non-fasting) (07/17/2017 12:30 AM EDT) Glucose Lvl 246(H) 65 - 199 mg/dL [facility] Comment:Diabetes: >=200 mg/d L plus symptoms BUN 17 10 - 20 mg/dL [facility] Creatinine 0.73(L) 0.80 - 1.50 mg/dL [facility] Comment: Please note that the pediatric reference intervals supplied above were not validated at [facility]. Results from pediatric patients should be interpreted in conjunction to the patient's age, height and muscle mass. Sodium 137 135 - 145 mmol/L [facility] Potassium 4.7 3.5 - 5.0 mmol/L [facility] Comment: Please note: ??Patients with WBC >100,000 may have falsely elevated Potassium levels. ??For accurate Potassium quantification in these patients send serum separator tube (gold top) for subsequent determinations. ??Contact the Clinical Chemistry Laboratory if there are any questions. Chloride 103 98 - 107 mmol/L [facility] CO2 21(L) 22 - 31 mmol/L [facility] Anion Gap 13 5 - 15 mmol/L [facility] Calcium 8.3(L) 8.5 - 10.5 mg/dL [facility] Estimated GFR >60 >=60 [facility] Comment: This estimated GFR (eGFR) value was calculated using the MDRD equation which has been validated on patients between the ages of 18 and 70. The MDRD should not be used to assess kidney function in patients < 18 years of age or in patients with extremes of body mass, or in patients with acute kidney failure. This value should be multiplied by 1.2 for patients. For further information please copy and paste the following links into your internet browser. [email or web address] Blood specimen (specimen) 07/17/2017 12:30 AM EDT 07/17/2017 1:13 AM EDT Narrative Resulting Agency Comment Spec In Lab Sriram Contreras MD CHEMISTRY ORDERABL ES [facility] [place] [address] * Cardiac Enzymes (07/17/2017 12:30 AM EDT) Troponin-T <0.01 0.00 - 0.00 ng/mL [facility] Comment: The 99th percentile for Troponin T is less than 0.01 ng/mL, any detectable cTnT concentration using this assay should be considered elevated. According to the third universal definition of myocardial infarction the following criteria with a clinical presentation consistent with acute myocardial ischemia meets the diagnosis for a myocardial infarction (IN). Detection of a rise and/or fall of cTnT, with at least one value greater than the 99th percentile (> or = 0.01) and with at least one of the following ?? Symptoms of ischemia ?? New or presumed new significant EL-[place]-H wave (ST-T) changes or new left bundle branch block (LBBB) ?? Development of pathologic Q waves in the ECG ?? Imaging evidence of new loss of viable myocardium or new regional wall motion abnormality ?? Identification of an intracoronary thrombus by angiography or autopsy Samples for cTnT testing should be obtained serially upon first assessment and again 3 to 6 hours later. If the clinical suspicion is high and previous samples have been negative an additional sample may be indicated. Reference: Third [place] Definition of Myocardial Infarction. Journal of the [place] [employer] 2012;60:1581-98 CK, Total 60 0 - 200 unit/L [facility] Blood specimen (specimen) 07/17/2017 12:30 AM EDT 07/17/2017 1:13 AM EDT Narrative Resulting Agency Comment Spec In Lab Sriram Contreras MD CHEMISTRY ORDERABL ES [facility] [place] [address] * XR Chest PA or AP 1 view (07/16/2017 5:24 PM EDT) Anatomical Region Laterality Modality Chest N/A Digital Radiogra phy Impressions 07/16/2017 5:40 PM EDT High position of endotracheal tube. Recommend advancing at least 3 cm. Low lung volumes with atelectasis and pulmonary edema. Narrative 07/16/2017 5:40 PM EDT EXAMINATION: XR CHEST PA OR AP 1 VIEW CLINICAL HISTORY: evaluate for tube placement TECHNIQUE: Portable AP semiupright chest COMPARISON: 07/13/2017 FINDINGS: The endotracheal tube has been withdrawn so that the tip projects about 2 cm above the level of the clavicles. There are lower lung volumes with increased pulmonary opacities most consistent with some combination of atelectasis and pulmonary edema. There is no other interval change. Again noted is a feeding tube with the tip superimposed over the gastric fundus. Procedure Note Hank Pino MD - 07/16/2017 EXAMINATION: XR CHEST PA OR AP 1 VIEW CLINICAL HISTORY: evaluate for tube placement TECHNIQUE: Portable AP semiupright chest COMPARISON: 07/13/2017 FINDINGS: The endotracheal tube has been withdrawn so that the tip projects about 2cm above the level of the clavicles. There are lower lung volumes withincreased pulmonary opacities most consistent with some combination of atelectasisand pulmonary edema. There is no other interval change. Again noted is afeeding tube with the tip superimposed over the gastric fundus. IMPRESSION High position of endotracheal tube. Recommend advancing at least 3 cm. Low lung volumes with atelectasis and pulmonary edema. Sriram Contreras MD IMG DX ORDERABLES * Cardiac Enzymes (07/16/2017 5:10 PM EDT) Troponin-T <0.01 0.00 - 0.00 ng/mL [facility] Comment: The 99th percentile for Troponin T is less than 0.01 ng/mL, any detectable cTnT concentration using this assay should be considered elevated. According to the third universal definition of myocardial infarction the following criteria with a clinical presentation consistent with acute myocardial ischemia meets the diagnosis for a myocardial infarction (IN). Detection of a rise and/or fall of cTnT, with at least one value greater than the 99th percentile (> or = 0.01) and with at least one of the following ?? Symptoms of ischemia ?? New or presumed new significant XI-llcdvwk-O wave (ST-T) changes or new left bundle branch block (LBBB) ?? Development of pathologic Q waves in the ECG ?? Imaging evidence of new loss of viable myocardium or new regional wall motion abnormality ?? Identification of an intracoronary thrombus by angiography or autopsy Samples for cTnT testing should be obtained serially upon first assessment and again 3 to 6 hours later. If the clinical suspicion is high and previous samples have been negative an additional sample may be indicated. Reference: Third [place] Definition of Myocardial Infarction. Journal of the [place] [employer] 2012;60:1581-98 CK, Total 63 0 - 200 unit/L [facility] Blood specimen (specimen) 07/16/2017 5:10 PM EDT 07/16/2017 5:20 PM EDT Narrative Resulting Agency Comment Spec In Lab Sriram Contreras MD CHEMISTRY ORDERABL ES Performing Organization Address [facility] Co de Phone Number [facility] [place] [address] * EKG 12 Lead (07/16/2017 4:46 PM EDT) Ventricular rate 70 BPM MUSE SYSTEM Atrial Rate 70 BPM MUSE SYSTEM P-R Interval 208 ms MUSE SYSTEM QRS Duration 96 ms MUSE SYSTEM Q-T Interval 404 ms MUSE SYSTEM QTC Calculated (Bezet) 436 ms MUSE SYSTEM Calculated P [place] 57 degrees MUSE SYSTEM Calculated R [place] 54 degrees MUSE SYSTEM Calculated T [place] 50 degrees MUSE SYSTEM INTERPRETATION Sinus rhythm with frequent Premature ventricular complexes in a pattern of bigeminy Otherwise normal ECG Confirmed by MD Bello Douglas ([id number]) on 07/17/2017 2:06:02 PM MUSE SYSTEM 07/16/2017 4:46 PM EDT 07/17/2017 2:06 PM EDT Sriram Contreras MD ECG ORDERABLES Performing Organization Address [facility]/ZIP Co de Phone Number MUSE SYSTEM * Magnesium (07/16/2017 4:00 AM EDT) Magnesium 0.82 0.69 - 1.07 mmol/L [facility] Blood specimen (specimen) Venous Draw / Unknown 07/16/2017 4:00 AM EDT 07/16/2017 4:18 AM EDT Narrative Resulting Agency Comment Spec In Lab Sriram Contreras MD CHEMISTRY ORDERABL ES Performing Organization Address [facility]/ZIP Co de Phone Number [facility] [place] [address] * (ABNORMAL) Differential, Automated (07/16/2017 4:00 AM EDT) Neutrophils % 81.3 % [facility] Neutr Abs (ANC) 8.31(H) 1.70 - 6.10 x10(3)/mc L [facility] Lymphocytes % 10.7 % [facility] Lymphocytes Abs 1.1 0.9 - 3.2 x10(3)/[facility] Monocytes % 6.8 % [facility] Monocyte Abs 0.7 0.3 - 0.9 x10(3)/[facility] Eosinophils % 0.3 % [facility] Eosinophils Abs 0.0 0.0 - 0.4 x10(3)/[facility] Basophils % 0.4 % [facility] Basophils Abs 0.0 0.0 - 0.1 x10(3)/[facility] Immature Gran % 0.50 % [facility] Comment: Immature granulocytes(IG's)percentage and absolute count will include metamyelocytes, myelocytes, and promyelocytes. Blood smears from CBCs yielding IG's will be scanned manually for concordance. If this scan disagrees with the automated IG or if promyelocytes are noted, a manual differential will be performed. Patti Gran Abs 0.05(H) 0.00 - 0.04 x10(3)/ L [facility] Blood specimen (specimen) 07/16/2017 4:00 AM EDT 07/16/2017 4:16 AM EDT Narrative Resulting Agency Comment Spec In Lab Sriram Contreras MD HEMATOLOGY ORDERAB LES Performing Organization Address [facility]/ZIP Co de Phone Number [facility] [place] [address] * (ABNORMAL) Hemogram (07/16/2017 4:00 AM EDT) WBC 10.2(H) 4.0 - 9.5 x10(3)/[facility] RBC 3.95(L) 4.58 - 5.54 x10(6)/[facility] Hemoglobin 12.4(L) 13.7 - 16.5 gm/dL [facility] Hematocrit 37.2(L) 40.5 - 48.5 % [facility] MCV 94.2(H) 82.9 - 93.1 [facility] MCH 31.4 27.5 - 32.1 pg [facility] MCHC 33.3 32.0 - 35.7 gm/dL [facility] Platelets 126(L) 145 - 357 x10(3)/[facility] RDWSD 50.0(H) 36.0 - 45.0 [facility] RDWCV 14.3(H) 11.4 - 13.8 % [facility] MPV 10.3 7.6 - 12.9 [facility] nRBC % Auto 0.0 % [facility] nRBC Abs Auto 0.000 0.000 - 0.000 x10(3)/[facility] Blood specimen (specimen) 07/16/2017 4:00 AM EDT 07/16/2017 4:16 AM EDT Narrative Resulting Agency Comment Spec In Lab Sriram Contreras MD HEMATOLOGY ORDERAB LES [facility] [place] [address] * (ABNORMAL) Basic Metabolic Panel (non-fasting) (07/16/2017 4:00 AM EDT) Glucose Lvl 131 65 - 199 mg/dL [facility] Comment:Diabetes: >=200 mg/d L plus symptoms BUN 16 10 - 20 mg/dL [facility] Creatinine 0.82 0.80 - 1.50 mg/dL [facility] Comment: Please note that the pediatric reference intervals supplied above were not validated at [facility]. Results from pediatric patients should be interpreted in conjunction to the patient's age, height and muscle mass. Sodium 144 135 - 145 mmol/L [facility] Potassium 4.2 3.5 - 5.0 mmol/L [facility] Comment: Please note: ??Patients with WBC >100,000 may have falsely elevated Potassium levels. ??For accurate Potassium quantification in these patients send serum separator tube (gold top) for subsequent determinations. ??Contact the Clinical Chemistry Laboratory if there are any questions. Chloride 106 98 - 107 mmol/L [facility] CO2 21(L) 22 - 31 mmol/L [facility] Anion Gap 17(H) 5 - 15 mmol/L [facility] Calcium 8.1(L) 8.5 - 10.5 mg/dL [facility] Estimated GFR >60 >=60 [facility] Comment: This estimated GFR (eGFR) value was calculated using the MDRD equation which has been validated on patients between the ages of 18 and 70. The MDRD should not be used to assess kidney function in patients < 18 years of age or in patients with extremes of body mass, or in patients with acute kidney failure. This value should be multiplied by 1.2 for patients. For further information please copy and paste the following links into your internet browser. [email or web address] Blood specimen (specimen) 07/16/2017 4:00 AM EDT 07/16/2017 4:16 AM EDT Narrative Resulting Agency Comment Spec In Lab Sriram Contreras MD CHEMISTRY ORDERABL ES [facility] [place] [address] * POCT Glucose (07/15/2017 12:26 PM EDT) POC Glucose 75 65 - 199 mg/dL [facility] Comment: Supplemental ranges: <140 mg/dL before meals <180 mg/dL all other times of the day Blood specimen (specimen) 07/15/2017 12:26 PM EDT 07/15/2017 12:26 PM EDT Sriram Contreras MD POINT OF CARE TEST ORDERABLES [facility] [place] [address] * (ABNORMAL) Basic Metabolic Panel (non-fasting) (07/15/2017 10:20 AM EDT) [facility] Glucose Lvl 111 65 - 199 mg/dL [facility] Comment:Diabetes: >=200 mg/d L plus symptoms BUN 19 10 - 20 mg/dL [facility] Creatinine 0.96 0.80 - 1.50 mg/dL [facility] Comment: Please note that the pediatric reference intervals supplied above were not validated at [facility]. Results from pediatric patients should be interpreted in conjunction to the patient's age, height and muscle mass. Sodium 143 135 - 145 mmol/L [facility] Potassium 4.0 3.5 - 5.0 mmol/L [facility] Comment: Please note: ??Patients with WBC >100,000 may have falsely elevated Potassium levels. ??For accurate Potassium quantification in these patients send serum separator tube (gold top) for subsequent determinations. ??Contact the Clinical Chemistry Laboratory if there are any questions. Chloride 107 98 - 107 mmol/L [facility] CO2 22 22 - 31 mmol/L [facility] Anion Gap 14 5 - 15 mmol/L [facility] Calcium 8.2(L) 8.5 - 10.5 mg/dL [facility] Estimated GFR >60 >=60 [facility] Comment: This estimated GFR (eGFR) value was calculated using the MDRD equation which has been validated on patients between the ages of 18 and 70. The MDRD should not be used to assess kidney function in patients < 18 years of age or in patients with extremes of body mass, or in patients with acute kidney failure. This value should be multiplied by 1.2 for patients. For further information please copy and paste the following links into your internet browser. [email or web address] Blood specimen (specimen) 07/15/2017 10:20 AM EDT 07/15/2017 10:24 AM EDT Narrative Resulting Agency Comment Spec In Lab Sriram Contreras MD CHEMISTRY ORDERABL ES Performing Organization Address [facility] Co de Phone Number [facility] [place] [address] * POCT Glucose (07/15/2017 8:30 AM EDT) POC Glucose 111 65 - 199 mg/dL [facility] Comment: Supplemental ranges: <140 mg/dL before meals <180 mg/dL all other times of the day Blood specimen (specimen) 07/15/2017 8:30 AM EDT 07/15/2017 8:30 AM EDT Sriram Contreras MD POINT OF CARE TEST ORDERABLES Performing Organization Address [facility] Co de Phone Number [facility] [place] [address] * (ABNORMAL) BLOOD GAS 2 ARTERIAL (07/15/2017 4:17 AM EDT) pH Art 7.38 7.35 - 7.45 [facility] pCO2 Art 42 35 - 45 mmHg [facility] pO2 Art 61(L) 85 - 104 mmHg [facility] HCO3 Art 24.6 20.0 - 26.0 mmol/L [facility] BE Art -0.4 -3.0 - 3.0 mmol/L [facility] Hgb Blood Gas 14.0 13.7 - 16.5 gm/dL [facility] O2HB Art 90.6(L) 94.0 - 97.0 % [facility] COHB Art 0.2 % [facility] Comment: Nonsmokers: 0.5-1.5% COHB Smokers: Variable, but usually less than 10% Toxic: 20-30% COHB Lethal: Greater than 60% COHB METHB Art 0.5 <=1.5 % [facility] Na Whole Blood 139 135 - 145 mmol/L [facility] K Whole Blood 4.1 3.5 - 5.0 mmol/L [facility] Comment: Please note: Patients with WBC >100,000 may have falsely elevated Potassium levels. Contact the Clinical Chemistry Laboratory if there are any questions. ICa Whole Blood 1.19 1.15 - 1.33 mmol/L [facility] Comment: Note: ??Total bilirubin higher than 20 mg/dL may lead to falsely low ionized calcium. CL Whole Blood 106 98 - 107 mmol/L [facility] Gluc Whole Bld 130 65 - 199 mg/dL [facility] Comment:Diabetes: >=200 mg/d L plus symptoms. Lactate WB 1.9 0.5 - 2.2 mmol/L [facility] FIO2 Art 35 % [facility] PF Ratio Art 174 [facility] Blood specimen (specimen) 07/15/2017 4:17 AM EDT 07/15/2017 4:17 AM EDT Sriram Contreras MD CHEMISTRY ORDERABL ES [facility] [place] [address] * (ABNORMAL) Differential, Automated (07/15/2017 4:15 AM EDT) Neutrophils % 84.7 % [facility] Neutr Abs (ANC) 12.39(H) 1.70 - 6.10 x10(3)/mc L [facility] Lymphocytes % 6.2 % [facility] Lymphocytes Abs 0.9 0.9 - 3.2 x10(3)/[facility] Monocytes % 8.0 % [facility] Monocyte Abs 1.2(H) 0.3 - 0.9 x10(3)/[facility] Eosinophils % 0.0 % [facility] Eosinophils Abs 0.0 0.0 - 0.4 x10(3)/[facility] Basophils % 0.1 % [facility] Basophils Abs 0.0 0.0 - 0.1 x10(3)/[facility] Immature Gran % 1.00 % [facility] Comment: Immature granulocytes(IG's)percentage and absolute count will include metamyelocytes, myelocytes, and promyelocytes. Blood smears from CBCs yielding IG's will be scanned manually for concordance. If this scan disagrees with the automated IG or if promyelocytes are noted, a manual differential will be performed. Patti Gran Abs 0.14(H) 0.00 - 0.04 x10(3)/[facility] Blood specimen (specimen) 07/15/2017 4:15 AM EDT 07/15/2017 4:28 AM EDT Narrative Resulting Agency Comment Spec In Lab Sriram Contreras MD HEMATOLOGY ORDERAB LES Performing Organization Address City/State/[facility] Co de Phone Number [facility] [place] [address] * (ABNORMAL) Hemogram (07/15/2017 4:15 AM EDT) WBC 14.6(H) 4.0 - 9.5 x10(3)/[facility] RBC 4.16(L) 4.58 - 5.54 x10(6)/[facility] Hemoglobin 13.0(L) 13.7 - 16.5 gm/dL [facility] Hematocrit 38.9(L) 40.5 - 48.5 % [facility] MCV 93.5(H) 82.9 - 93.1 [facility] MCH 31.3 27.5 - 32.1 pg [facility] MCHC 33.4 32.0 - 35.7 gm/dL [facility] Platelets 135(L) 145 - 357 x10(3)/[facility] RDWSD 48.8(H) 36.0 - 45.0 [facility] RDWCV 14.2(H) 11.4 - 13.8 % [facility] MPV 10.0 7.6 - 12.9 [facility] nRBC % Auto 0.0 % [facility] nRBC Abs Auto 0.000 0.000 - 0.000 x10(3)/[facility] Blood specimen (specimen) 07/15/2017 4:15 AM EDT 07/15/2017 4:28 AM EDT Narrative Resulting Agency Comment Spec In Lab Sriram Contreras MD HEMATOLOGY ORDERAB LES Performing Organization Address [facility] de Phone Number [facility] [place] [address] * Potassium (07/14/2017 8:20 PM EDT) Potassium 4.4 3.5 - 5.0 mmol/L [facility] Comment: Please note: ??Patients with WBC >100,000 may have falsely elevated Potassium levels. ??For accurate Potassium quantification in these patients send serum separator tube (gold top) for subsequent determinations. ??Contact the Clinical Chemistry Laboratory if there are any questions. Blood specimen (specimen) 07/14/2017 8:20 PM EDT 07/14/2017 8:31 PM EDT Narrative Resulting Agency Comment Spec In Lab Sriram Contreras MD CHEMISTRY ORDERABL ES Performing Organization Address [facility] Co de Phone Number [facility] [place] [address] * (ABNORMAL) Magnesium (07/14/2017 8:20 PM EDT) Magnesium 1.08(H) 0.69 - 1.07 mmol/L [facility] Blood specimen (specimen) 07/14/2017 8:20 PM EDT 07/14/2017 8:31 PM EDT Narrative Resulting Agency Comment Spec In Lab Sriram Contreras MD CHEMISTRY ORDERABL ES Performing Organization Address [facility] de Phone Number [facility] [place] [address] * Magnesium (07/14/2017 4:30 PM EDT) Magnesium 0.86 0.69 - 1.07 mmol/L [facility] Blood specimen (specimen) 07/14/2017 4:30 PM EDT 07/14/2017 4:50 PM EDT Narrative Resulting Agency Comment Spec In Lab Sriram Contreras MD CHEMISTRY ORDERABL ES Performing Organization Address [facility] Phone Number [facility] [place] [address] * POCT Glucose (07/14/2017 4:26 PM EDT) POC Glucose 146 65 - 199 mg/dL [facility] Comment: Supplemental ranges: <140 mg/dL before meals <180 mg/dL all other times of the day Blood specimen (specimen) 07/14/2017 4:26 PM EDT 07/14/2017 4:26 PM EDT Sriram Contreras MD POINT OF CARE TEST ORDERABLES Performing Organization Address [facility] Co de Phone Number [facility] [place] [address] * EKG 12 Lead (07/14/2017 12:37 PM EDT) Ventricular rate 67 BPM MUSE SYSTEM Atrial Rate 67 BPM MUSE SYSTEM P-R Interval 216 ms MUSE SYSTEM QRS Duration 100 ms MUSE SYSTEM Q-T Interval 438 ms MUSE SYSTEM QTC Calculated (Bezet) 462 ms MUSE SYSTEM Calculated P [place] 58 degrees MUSE SYSTEM Calculated R [place] 56 degrees MUSE SYSTEM Calculated T [place] 38 degrees MUSE SYSTEM INTERPRETATION Sinus rhythm with 1st degree A-V block Otherwise normal ECG When compared with ECG of 29-MAR-1997 12:50, UT interval has increased Confirmed by MD Radha, Daryl ([id number]) on 07/14/2017 5:07:22 PM MUSE SYSTEM 07/14/2017 12:3 7 PM EDT 07/14/2017 5:07 PM EDT Sriram Contreras MD ECG ORDERABLES Performing Organization Address [facility] Co de Phone Number MUSE SYSTEM * POCT Glucose (07/14/2017 12:05 PM EDT) POC Glucose 147 65 - 199 mg/dL [facility] Comment: Supplemental ranges: <140 mg/dL before meals <180 mg/dL all other times of the day Blood specimen (specimen) 07/14/2017 12:05 PM EDT 07/14/2017 12:05 PM EDT Sriram Contreras MD POINT OF CARE TEST ORDERABLES Performing Organization Address [facility] Co de Phone Number [facility] [place] [address] * POCT Glucose (07/14/2017 8:25 AM EDT) POC Glucose 140 65 - 199 mg/dL [facility] Comment: Supplemental ranges: <140 mg/dL before meals <180 mg/dL all other times of the day Blood specimen (specimen) 07/14/2017 8:25 AM EDT 07/14/2017 8:25 AM EDT Sriram Contreras MD POINT OF CARE TEST ORDERABLES Performing Organization Address City/[facility]/ZIP Co de Phone Number [facility] [place] [address] * (ABNORMAL) Differential, Automated (07/14/2017 12:36 AM EDT) Neutrophils % 90.3 % [facility] Neutr Abs (ANC) 13.17(H) 1.70 - 6.10 x10(3)/ L [facility] Lymphocytes % 3.8 % [facility] Lymphocytes Abs 0.6(L) 0.9 - 3.2 x10(3)/[facility] Monocytes % 5.4 % [facility] Monocyte Abs 0.8 0.3 - 0.9 x10(3)/[facility] Eosinophils % 0.0 % [facility] Eosinophils Abs 0.0 0.0 - 0.4 x10(3)/[facility] Basophils % 0.1 % [facility] Basophils Abs 0.0 0.0 - 0.1 x10(3)/[facility] Immature Gran % 0.40 % [facility] Comment: Immature granulocytes(IG's)percentage and absolute count will include metamyelocytes, myelocytes, and promyelocytes. Blood smears from CBCs yielding IG's will be scanned manually for concordance. If this scan disagrees with the automated IG or if promyelocytes are noted, a manual differential will be performed. Patti Gran Abs 0.06(H) 0.00 - 0.04 x10(3)/ L [facility] Blood specimen (specimen) 07/14/2017 12:36 AM EDT 07/14/2017 12:41 AM EDT Narrative Resulting Agency Comment Spec In Lab Sriram Contreras MD HEMATOLOGY ORDERAB LES Performing Organization Address City/[facility]/ZIP Co de Phone Number [facility] [place] [address] * (ABNORMAL) Hemogram (07/14/2017 12:36 AM EDT) WBC 14.6(H) 4.0 - 9.5 x10(3)/[facility] RBC 4.57(L) 4.58 - 5.54 x10(6)/[facility] Hemoglobin 14.1 13.7 - 16.5 gm/dL [facility] Hematocrit 42.1 40.5 - 48.5 % [facility] MCV 92.1 82.9 - 93.1 [facility] MCH 30.9 27.5 - 32.1 pg [facility] MCHC 33.5 32.0 - 35.7 gm/dL [facility] Platelets 157 145 - 357 x10(3)/[facility] RDWSD 48.6(H) 36.0 - 45.0 [facility] RDWCV 14.4(H) 11.4 - 13.8 % [facility] MPV 10.2 7.6 - 12.9 [facility] nRBC % Auto 0.0 % [facility] nRBC Abs Auto 0.000 0.000 - 0.000 x10(3)/[facility] Blood specimen (specimen) 07/14/2017 12:36 AM EDT 07/14/2017 12:41 AM EDT Narrative Resulting Agency Comment Spec In Lab Sriram Contreras MD HEMATOLOGY ORDERAB LES [facility] [place] [address] * (ABNORMAL) Magnesium (07/14/2017 12:36 AM EDT) Magnesium 0.65(L) 0.69 - 1.07 mmol/L [facility] Blood specimen (specimen) 07/14/2017 12:36 AM EDT 07/14/2017 12:41 AM EDT Narrative Resulting Agency Comment Spec In Lab Sriram Contreras MD CHEMISTRY ORDERABL ES Performing Organization Address [facility] de Phone Number [facility] [place] [address] * Phosphorus (07/14/2017 12:36 AM EDT) Phosphorus 3.3 2.5 - 4.5 mg/dL [facility] Blood specimen (specimen) 07/14/2017 12:36 AM EDT 07/14/2017 12:41 AM EDT Narrative Resulting Agency Comment Spec In Lab Sriram Contreras MD CHEMISTRY ORDERABL ES Performing Organization Address [facility] de Phone Number [facility] [place] [address] * Prealbumin (07/14/2017 12:36 AM EDT) Prealbumin 23 20 - 40 mg/dL [facility] Comment: Prealbumin levels are generally lower in the pediatric population; adult concentrations are usually attained near puberty. Blood specimen (specimen) 07/14/2017 12:36 AM EDT 07/14/2017 12:45 AM EDT Narrative Resulting Agency Comment Spec In Lab Sriram Contreras MD CHEMISTRY ORDERABL ES Performing Organization Address [facility] de Phone Number [facility] [place] [address] * (ABNORMAL) Basic Metabolic Panel (non-fasting) (07/14/2017 12:36 AM EDT) Glucose Lvl 161 65 - 199 mg/dL [facility] Comment:Diabetes: >=200 mg/d L plus symptoms BUN 16 10 - 20 mg/dL [facility] Creatinine 0.97 0.80 - 1.50 mg/dL [facility] Comment: Please note that the pediatric reference intervals supplied above were not validated at [facility]. Results from pediatric patients should be interpreted in conjunction to the patient's age, height and muscle mass. Sodium 144 135 - 145 mmol/L [facility] Potassium 4.5 3.5 - 5.0 mmol/L [facility] Comment: result rechecked- Please note: ??Patients with WBC >100,000 may have falsely elevated Potassium levels. ??For accurate Potassium quantification in these patients send serum separator tube (gold top) for subsequent determinations. ??Contact the Clinical Chemistry Laboratory if there are any questions. Chloride 108(H) 98 - 107 mmol/L [facility] CO2 19(L) 22 - 31 mmol/L [facility] Anion Gap 17(H) 5 - 15 mmol/L [facility] Calcium 7.7(L) 8.5 - 10.5 mg/dL [facility] Estimated GFR >60 >=60 [facility] Comment: This estimated GFR (eGFR) value was calculated using the MDRD equation which has been validated on patients between the ages of 18 and 70. The MDRD should not be used to assess kidney function in patients < 18 years of age or in patients with extremes of body mass, or in patients with acute kidney failure. This value should be multiplied by 1.2 for patients. For further information please copy and paste the following links into your internet browser. [email or web address] [email or web address] Blood specimen (specimen) 07/14/2017 12:36 AM EDT 07/14/2017 12:41 AM EDT Narrative Resulting Agency Comment Spec In Lab Sriram Contreras MD CHEMISTRY ORDERABL ES [facility] [place] [address] * (ABNORMAL) Basic Metabolic Panel (non-fasting) (07/13/2017 9:33 PM EDT) Glucose Lvl 147 65 - 199 mg/dL [facility] Comment:Diabetes: >=200 mg/d L plus symptoms BUN 17 10 - 20 mg/dL [facility] Creatinine 1.16 0.80 - 1.50 mg/dL [facility] Comment: Please note that the pediatric reference intervals supplied above were not validated at [facility]. Results from pediatric patients should be interpreted in conjunction to the patient's age, height and muscle mass. Sodium Not Perf 135 - 145 mmol/L [facility] Comment: Unable to quantitate due to sample hemolysis. ??Sample redraw suggested. Called by: michael, Read back by: maddie rucker, Date/Time:07/13/17 22:12. Potassium Not Perf 3.5 - 5.0 mmol/L [facility] Comment: Unable to quantitate due to sample hemolysis. ??Sample redraw suggested. Called by: michael, Read back by: maddie rucker, Date/Time:07/13/17 22:12. Please note: ??Patients with WBC >100,000 may have falsely elevated Potassium levels. ??For accurate Potassium quantification in these patients send serum separator tube (gold top) for subsequent determinations. ??Contact the Clinical Chemistry Laboratory if there are any questions. Chloride Not Perf 98 - 107 mmol/L [facility] Comment: Unable to quantitate due to sample hemolysis. ??Sample redraw suggested. Called by: michael, Read back by: maddie rucker, Date/Time:07/13/17 22:12. CO2 18(L) 22 - 31 mmol/L [facility] Anion Gap Not Calculated 5 - 15 mmol/L [facility] Calcium 7.3(L) 8.5 - 10.5 mg/dL [facility] Estimated GFR >60 >=60 [facility] Comment: This estimated GFR (eGFR) value was calculated using the MDRD equation which has been validated on patients between the ages of 18 and 70. The MDRD should not be used to assess kidney function in patients < 18 years of age or in patients with extremes of body mass, or in patients with acute kidney failure. This value should be multiplied by 1.2 for patients. For further information please copy and paste the following links into your internet browser. [email or web address] Blood specimen (specimen) 07/13/2017 9:33 PM EDT 07/13/2017 9:41 PM EDT Narrative Resulting Agency Comment Spec In Lab Sriram Contreras MD CHEMISTRY ORDERABL ES [facility] [place] [address] * XR Chest PA or AP 1 view (07/13/2017 8:54 PM EDT) Anatomical Region Laterality Modality Chest N/A Digital Radiogra phy Impressions 07/13/2017 9:02 PM EDT ET tube in mid trachea. Dobbhoff tube tip in the gastric body with no redundancy. Narrative 07/13/2017 9:02 PM EDT EXAMINATION: XR CHEST PA OR AP 1 VIEW CLINICAL HISTORY: check ETT and DHT placement TECHNIQUE: Portable 45 degree AP COMPARISON: None FINDINGS: Tip of endotracheal tube is 6 cm above the shelli, mid trachea, and projects over T3 vertebra. Dobbhoff tube tip is in the gastric body. No kinking. Hypoinflated lungs, platelike atelectasis right lung base. No dense airspace consolidation. Procedure Note Macrina Ramirez MD - 07/13/2017 EXAMINATION: XR CHEST PA OR AP 1 VIEW CLINICAL HISTORY: check ETT and DHT placement TECHNIQUE: Portable 45 degree AP COMPARISON: None FINDINGS: Tip of endotracheal tube is 6 cm above the shelli, mid trachea, andprojects over T3 vertebra. Dobbhoff tube tip is in the gastric body. No kinking. Hypoinflated lungs, platelike atelectasis right lung base. No denseairspace consolidation. IMPRESSION ET tube in mid trachea. Dobbhoff tube tip in the gastric body with no redundancy. Sriram Contreras MD IMG DX ORDERABLES * Specimen to Pathology (surgical or derm) (07/13/2017 7:35 PM EDT) AP Specimen 07/13/2017 7:35 PM EDT 07/13/2017 7:[address] [facility] - 07/13/2017 7:35 PM EDT Specimen requisition ordered. ??Separate Pathology report to follow Sriram Contreras MD PATHOLOGY/CYTOLOGY ORDERABLES Performing Organization Address [facility]/ZIP [place] [address] * Specimen to Pathology (surgical or derm) (07/13/2017 7:05 PM EDT) AP Specimen 07/13/2017 7:05 PM EDT 07/13/2017 7:05 [address] [facility] - 07/13/2017 7:05 PM EDT Specimen requisition ordered. ??Separate Pathology report to follow Sriram Contreras MD PATHOLOGY/CYTOLOGY ORDERABLES Performing Organization Address [facility] [place] [address] * Specimen to Pathology (surgical or derm) (07/13/2017 6:21 PM EDT) AP Specimen 07/13/2017 6:21 PM EDT 07/13/2017 6:[address] [facility] - 07/13/2017 6:21 PM EDT Specimen requisition ordered. ??Separate Pathology report to follow Sriram Contreras MD PATHOLOGY/CYTOLOGY ORDERABLES Performing Organization Address [facility] [place] [address] * Specimen to Pathology (surgical or derm) (07/13/2017 5:30 PM EDT) AP Specimen 07/13/2017 5:30 PM EDT 07/13/2017 5:[address] [facility] - 07/13/2017 5:30 PM EDT Specimen requisition ordered. ??Separate Pathology report to follow Sriram Contreras MD PATHOLOGY/[place] [address] * Specimen to Pathology (surgical or derm) (07/13/2017 5:30 PM EDT) AP Specimen 07/13/2017 5:30 PM EDT 07/13/2017 5:30 PM EDT Narrative [facility] - 07/13/2017 5:30 PM EDT Specimen requisition ordered. ??Separate Pathology report to follow Sriram Contreras MD PATHOLOGY/CYTOLOGY ORDERABLES Performing Organization Address [facility]/ZIP [place] [address] * Specimen to Pathology (surgical or derm) (07/13/2017 5:30 PM EDT) AP Specimen 07/13/2017 5:30 PM EDT 07/13/2017 5:30 PM EDT Narrative [facility] - 07/13/2017 5:30 PM EDT Specimen requisition ordered. ??Separate Pathology report to follow Sriram Contreras MD PATHOLOGY/CYTOLOGY ORDERABLES Performing Organization Address City/[facility]/[place]IP [place] [address] * Specimen to Pathology (surgical or derm) (07/13/2017 5:30 PM EDT) AP Specimen 07/13/2017 5:30 PM EDT 07/13/2017 5:30 PM EDT Narrative [facility] - 07/13/2017 5:30 PM EDT Specimen requisition ordered. ??Separate Pathology report to follow Sriram Contreras MD PATHOLOGY/CYTOLOGY ORDERABLES Performing Organization Address City/[facility]/[place] [address] * Specimen to Pathology (surgical or derm) (07/13/2017 5:21 PM EDT) AP Specimen 07/13/2017 5:21 PM EDT 07/13/2017 5:[address] [facility] - 07/13/2017 5:21 PM EDT Specimen requisition ordered. ??Separate Pathology report to follow Sriram Contreras MD PATHOLOGY/CYTOLOGY ORDERABLES Performing Organization Address [facility]/[place]IP [place] [address] * Specimen to Pathology (surgical or derm) (07/13/2017 5:21 PM EDT) AP Specimen 07/13/2017 5:21 PM EDT 07/13/2017 5:[address] [facility] - 07/13/2017 5:21 PM EDT Specimen requisition ordered. ??Separate Pathology report to follow Sriram Contreras MD PATHOLOGY/CYTOLOGY ORDERABLES Performing Organization Address [facility] [place] [address] * Specimen to Pathology (surgical or derm) (07/13/2017 5:21 PM EDT) AP Specimen 07/13/2017 5:21 PM EDT 07/13/2017 5:[address] [facility] - 07/13/2017 5:21 PM EDT Specimen requisition ordered. ??Separate Pathology report to follow Sriram Contreras MD PATHOLOGY/CYTOLOGY ORDERABLES Performing Organization Address [facility] [place] [address] * Specimen to Pathology (surgical or derm) (07/13/2017 5:16 PM EDT) AP Specimen 07/13/2017 5:16 PM EDT 07/13/2017 5:[address] [facility] - 07/13/2017 5:16 PM EDT Specimen requisition ordered. ??Separate Pathology report to follow Sriram Contreras MD PATHOLOGY/CYTOLOGY ORDERABLES Performing Organization Address City/[facility]/[place]IP [place] [address] * Specimen to Pathology (surgical or derm) (07/13/2017 5:05 PM EDT) AP Specimen 07/13/2017 5:05 PM EDT 07/13/2017 5:05 PM EDT Narrative [facility] - 07/13/2017 5:05 PM EDT Specimen requisition ordered. ??Separate Pathology report to follow Sriram Contreras MD PATHOLOGY/CYTOLOGY ORDERABLES Performing Organization Address [facility]/ZIP [place] [address] * Specimen to Pathology (surgical or derm) (07/13/2017 5:05 PM EDT) AP Specimen 07/13/2017 5:05 PM EDT 07/13/2017 5:05 PM EDT Narrative [facility] - 07/13/2017 5:05 PM EDT Specimen requisition ordered. ??Separate Pathology report to follow Sriram Contreras MD PATHOLOGY/CYTOLOGY ORDERABLES Performing Organization Address [facility]/ZIP [place] [address] * Specimen to Pathology (surgical or derm) (07/13/2017 4:39 PM EDT) AP Specimen 07/13/2017 4:39 PM EDT 07/13/2017 4:39 PM EDT Narrative [facility] - 07/13/2017 4:39 PM EDT Specimen requisition ordered. ??Separate Pathology report to follow Sriram Contreras MD PATHOLOGY/CYTOLOGY ORDERABLES Performing Organization Address City/[facility]/[place] [address] * Specimen to Pathology (surgical or derm) (07/13/2017 4:35 PM EDT) AP Specimen 07/13/2017 4:35 PM EDT 07/13/2017 4:[address] [facility] - 07/13/2017 4:35 PM EDT Specimen requisition ordered. ??Separate Pathology report to follow Sriram Contreras MD PATHOLOGY/CYTOLOGY ORDERABLES Performing Organization Address [facility] [place] [address] * Specimen to Pathology (surgical or derm) (07/13/2017 4:35 PM EDT) AP Specimen 07/13/2017 4:35 PM EDT 07/13/2017 4:[address] [facility] - 07/13/2017 4:35 PM EDT Specimen requisition ordered. ??Separate Pathology report to follow Sriram Contreras MD PATHOLOGY/CYTOLOGY ORDERABLES Performing Organization Address [facility] [place] [address] * Specimen to Pathology (surgical or derm) (07/13/2017 3:52 PM EDT) AP Specimen 07/13/2017 3:52 PM EDT 07/13/2017 3:[address] [facility] - 07/13/2017 3:52 PM EDT Specimen requisition ordered. ??Separate Pathology report to follow Sriram Contreras MD PATHOLOGY/CYTOLOGY ORDERABLES Performing Organization Address [facility] [place] [address] * Specimen to Pathology (surgical or derm) (07/13/2017 3:52 PM EDT) AP Specimen 07/13/2017 3:52 PM EDT 07/13/2017 3:[address] [facility] - 07/13/2017 3:52 PM EDT Specimen requisition ordered. ??Separate Pathology report to follow Sriram Contreras MD PATHOLOGY/CYTOLOGY ORDERABLES [facility] [place] [address] * (ABNORMAL) BLOOD GAS 2 ARTERIAL (07/13/2017 3:46 PM EDT) pH Art 7.31(L) 7.35 - 7.45 [facility] pCO2 Art 37 35 - 45 mmHg [facility] pO2 Art 103 85 - 104 mmHg [facility] HCO3 Art 17.8(L) 20.0 - 26.0 mmol/L [facility] BE Art -8.5(L) -3.0 - 3.0 mmol/L [facility] Hgb Blood Gas 15.1 13.7 - 16.5 gm/dL [facility] O2HB Art 96.6 94.0 - 97.0 % [facility] COHB Art 0.4 % [facility] Comment: Nonsmokers: 0.5-1.5% COHB Smokers: Variable, but usually less than 10% Toxic: 20-30% COHB Lethal: Greater than 60% COHB METHB Art 0.3 <=1.5 % [facility] Na Whole Blood 139 135 - 145 mmol/L [facility] K Whole Blood 4.5 3.5 - 5.0 mmol/L [facility] Comment: Please note: Patients with WBC >100,000 may have falsely elevated Potassium levels. Contact the Clinical Chemistry Laboratory if there are any questions. ICa Whole Blood 1.12(L) 1.15 - 1.33 mmol/L [facility] Comment: Note: ??Total bilirubin higher than 20 mg/dL may lead to falsely low ionized calcium. CL Whole Blood 110(H) 98 - 107 mmol/L [facility] Gluc Whole Bld 118 65 - 199 mg/dL [facility] Comment:Diabetes: >=200 mg/d L plus symptoms. Lactate WB 2.9(H) 0.5 - 2.2 mmol/L [facility] Blood specimen (specimen) 07/13/2017 3:46 PM EDT 07/13/2017 3:46 PM EDT Sriram Contreras MD CHEMISTRY ORDERABL ES [facility] [place] [address] * (ABNORMAL) BLOOD GAS 2 ARTERIAL (07/13/2017 2:06 PM EDT) pH Art 7.32(L) 7.35 - 7.45 [facility] pCO2 Art 32(L) 35 - 45 mmHg [facility] pO2 Art 96 85 - 104 mmHg [facility] HCO3 Art 16.0(L) 20.0 - 26.0 mmol/L [facility] BE Art -10.1(L) -3.0 - 3.0 mmol/L [facility] Hgb Blood Gas 14.0 13.7 - 16.5 gm/dL [facility] O2HB Art 96.1 94.0 - 97.0 % [facility] COHB Art 1.1 % [facility] Comment: Nonsmokers: 0.5-1.5% COHB Smokers: Variable, but usually less than 10% Toxic: 20-30% COHB Lethal: Greater than 60% COHB METHB Art 0.3 <=1.5 % [facility] Na Whole Blood 139 135 - 145 mmol/L [facility] K Whole Blood 3.8 3.5 - 5.0 mmol/L [facility] Comment: Please note: Patients with WBC >100,000 may have falsely elevated Potassium levels. Contact the Clinical Chemistry Laboratory if there are any questions. ICa Whole Blood 1.02(L) 1.15 - 1.33 mmol/L [facility] Comment: Note: ??Total bilirubin higher than 20 mg/dL may lead to falsely low ionized calcium. CL Whole Blood 115(H) 98 - 107 mmol/L [facility] Gluc Whole Bld 111 65 - 199 mg/dL [facility] Comment:Diabetes: >=200 mg/d L plus symptoms. Lactate WB 2.5(H) 0.5 - 2.2 mmol/L [facility] Blood specimen (specimen) 07/13/2017 2:06 PM EDT 07/13/2017 2:06 PM EDT Sriram Contreras MD CHEMISTRY ORDERABL ES [facility] [place] [address] * (ABNORMAL) Comprehensive metabolic panel (non-fasting) (07/13/2017 12:56 PM EDT) Glucose Lvl 155 65 - 199 mg/dL [facility] Comment:Diabetes: >=200 mg/d L plus symptoms BUN 17 10 - 20 mg/dL [facility] Creatinine 1.06 0.80 - 1.50 mg/dL [facility] Comment: Please note that the pediatric reference intervals supplied above were not validated at [facility]. Results from pediatric patients should be interpreted in conjunction to the patient's age, height and muscle mass. Sodium 142 135 - 145 mmol/L [facility] Potassium 5.7(H) 3.5 - 5.0 mmol/L [facility] Comment: Please note: ??Patients with WBC >100,000 may have falsely elevated Potassium levels. ??For accurate Potassium quantification in these patients send serum separator tube (gold top) for subsequent determinations. ??Contact the Clinical Chemistry Laboratory if there are any questions. Chloride 108(H) 98 - 107 mmol/L [facility] CO2 20(L) 22 - 31 mmol/L [facility] Anion Gap 14 5 - 15 mmol/L [facility] Calcium 7.9(L) 8.5 - 10.5 mg/dL [facility] Total Protein 6.2 6.1 - 8.0 gm/dL [facility] Albumin 3.6 3.2 - 5.2 gm/dL [facility] AST 15 0 - 39 unit/L [facility] ALT 13 0 - 55 unit/L [facility] Alk Phos 70 40 - 120 unit/L [facility] Total Bilirubin 0.2 0.2 - 1.3 mg/dL [facility] Estimated GFR >60 >=60 [facility] Comment: This estimated GFR (eGFR) value was calculated using the MDRD equation which has been validated on patients between the ages of 18 and 70. The MDRD should not be used to assess kidney function in patients < 18 years of age or in patients with extremes of body mass, or in patients with acute kidney failure. This value should be multiplied by 1.2 for patients. For further information please copy and paste the following links into your internet browser. [email or web address] Blood specimen (specimen) 07/13/2017 12:56 PM EDT 07/13/2017 1:02 PM EDT Narrative Resulting Agency Comment Spec In Lab Sriram Contreras MD CHEMISTRY ORDERABL ES [facility] [place] [address] * (ABNORMAL) BLOOD GAS 2 ARTERIAL (07/13/2017 12:15 PM EDT) pH Art 7.34(L) 7.35 - 7.45 [facility] pCO2 Art 39 35 - 45 mmHg [facility] pO2 Art 68(L) 85 - 104 mmHg [facility] HCO3 Art 20.4 20.0 - 26.0 mmol/L [facility] BE Art -5.4(L) -3.0 - 3.0 mmol/L [facility] Hgb Blood Gas 15.8 13.7 - 16.5 gm/dL [facility] O2HB Art 91.8(L) 94.0 - 97.0 % [facility] COHB Art 0.9 % [facility] Comment: Nonsmokers: 0.5-1.5% COHB Smokers: Variable, but usually less than 10% Toxic: 20-30% COHB Lethal: Greater than 60% COHB METHB Art 0.3 <=1.5 % [facility] Na Whole Blood 138 135 - 145 mmol/L [facility] K Whole Blood 5.7(H) 3.5 - 5.0 mmol/L [facility] Comment: Please note: Patients with WBC >100,000 may have falsely elevated Potassium levels. Contact the Clinical Chemistry Laboratory if there are any questions. ICa Whole Blood 1.17 1.15 - 1.33 mmol/L [facility] Comment: Note: ??Total bilirubin higher than 20 mg/dL may lead to falsely low ionized calcium. CL Whole Blood 109(H) 98 - 107 mmol/L [facility] Gluc Whole Bld 125 65 - 199 mg/dL [facility] Comment:Diabetes: >=200 mg/d L plus symptoms. Lactate WB 3.7(H) 0.5 - 2.2 mmol/L [facility] Blood specimen (specimen) 07/13/2017 12:15 PM EDT 07/13/2017 12:15 PM EDT Sriram Contreras MD CHEMISTRY ORDERABL ES [facility] [place] [address] * Surgical Pathology Report (07/13/2017 12:04 PM EDT) Surgical Pathology Report [id number] ? Location: ICUS; IC14; A The signing pathologist has (i) examined the relevant preparation(s) for the specimen(s) and (ii) rendered or confirmed the diagnosis(es). . ?Surgical Pathology DIAGNOSIS A - Anterior deep tongue base right, for frozen section - ?Positive for carcinoma. B - Lateral pharyngeal margin right side, for frozen section - ?Benign. C - Right epiglottic margin, for frozen section - ?Benign. D - Left epiglottic margin, for frozen section - ?Benign. E - Right base of tongue, for frozen section - ?Benign, inflamed tissue. F - Left base of tongue, for frozen section - ?Benign (edge of lingual tonsil). G - Pre-epiglottic margin, for frozen section - ?Benign. H - Right deep base of tongue, for frozen section - ?Benign. I - Left deep base of tongue, for frozen section - ?Benign. J - Left base of tongue #2, for frozen section - ?Benign (lingual tonsil). K - Level 1 - ?Benign soft tissue (no nodes) entirely submitted. L - N - See Synoptic O - Final deep margin right tongue base - ?Benign soft tissue. P - Left vallecula - ?Benign lingual-type tonsillar tissue. Q - Final inferior margin midline - ?Benign adipose. R - See Synoptic S - Tongue base, resection - ?Benign tongue base tissue. Specimen Parts: ?? L - Level 2 M - Level 3 N - Level 4 R - Right tongue base resection and epiglottic resection . DIAGNOSIS Specimen ? Specimen: ??Oropharynx ? Received: ??Fresh ? Procedure: ??Resection ?Type of Resection: ?? Base of tongue and partial epiglottis ? Specimen Size ?Greatest Dimensions: ?? 5 x 4.5 x 3.0 cm ? Specimen Laterality: ?? Right ? Primary Tumor Site: ?? Oropharynx ?Oropharynx Tumor Involvement: ?? Base of tongue, including lingual tonsil ? Additional Sites Involved By Tumor: ?None identified ? Tumor Laterality: ?? Right ? Tumor Focality: ?? Single focus ? Tumor Size: ?? 2.5 cm Tumor ? 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 Histologic Grade: ?? G3: Poorly differentiated Margins ? Margins - Invasive Status: ?? Margins uninvolved by invasive carcinoma ?Distance of Tumor from Closest Margin: ?Cannot be assessed, See Comment ?Location of Closest Margin, Per Orientation: ?Left vallecula, 2-mm in ? Specimen R ? Margins - In Situ Status: ?? Not applicable Accessory Findings ? Lymph-Vascular Invasion: ?? Not identified ? Perineural Invasion: ?? Not identified Lymph Nodes ? Number of Lymph Nodes Examined: ?? 15 ? Lymph Nodes Involved: ?? None identified ? Extracapsular Extension: ?? Not identified ? Lymph Nodes, Extranodal Extension: ?Not identified ? Levels Examined: ?? L - 0/3, M - 0/9, N - 0/3 (no nodes Part K). Special Studies ? Ancillary Studies: ?? Molecular HPV and P16 (positive); performed on prior ?biopsy - Please see separate report. Stage (pTNM) ? Pathologic Staging ?Pathologic Staging: ?? For all carcinomas excluding mucosal melanoma ?Pathological Stage: ?? pT2 pN0 Tumor Block(s): ?? R3, R5 Normal Block(s): ?? S2 Comments ? On Specimen R, only base of tongue margin slides are positive for tumor (in ?the specimen, but not the final separate margin). ? All other margins are negative. [facility] January 2016 Annual Release Electronically signed by: ??Aleshia Pino DO Verified: ??07/21/2017 ?Pathologist CLINICAL INFORMATION Specimen Submitted: A - Anterior deep tongue base / right for frozen section B - Lateral pharngeal margin right side for frozen section C - Right epiglottic margin for frozen section D - Left epiglottic margin for frozen section E - Right base of tongue for frozen section F - Left base of tongue for frozen section G - Pre-epiglottic margin for frozen section H - Right deep base of tongue for frozen section I - Left deep base of tongue for frozen section J - Left base of tongue #2 for frozen section . CLINICAL INFORMATION K - Level 1 L - Level 2 M - Level 3 N - Level 4 O - Final deep margin right tongue base P - Left vallecula Q - Final inferior margin midline R - Right tongue base resection and epiglottic resection S - Tongue base / single stitch right lateral / double stitch left lateral Clinical History: Head ??& Neck Cancer/base of tongue right Clinical Diagnosis: Same SPECIMEN PROCESSING SPECIMEN PROCESSING A - ??Labeled/Fixativ e: Anterior deep tongue base/right side, Fresh. Quantity/Size: Single, 0.3 x 0.3 x 0.1 cm. Tissue Description: Red cauterized tissue. The specimen is submitted for frozen in its entirety. Sections/Processi ng: (1) frozen tissue residue (T1) B - ??Labeled/Fixativ e: Lateral pharyngeal margin right side, Fresh. Quantity/Size: Single, 2.1 x 0.4 x 0.2 cm. Tissue Description: Red-hdez tissue with electrocautery artifact. The specimen is submitted for frozen section in its entirety. Sections/Processi ng: (1) frozen tissue residue (T1) C - ??Labeled/Fixativ e: Right epiglottic margin, Fresh. Quantity/Size: Single, 0.9 x 0.5 x 0.2 cm cm. Tissue Description: Red-hdez membranous tissue. The specimen is submitted for frozen section in its entirety. Sections/Processi ng: (1) frozen tissue residue (T1) D - ??Labeled/Fixativ e: Left epiglottic margin, Fresh. Quantity/Size: Single, 2.3 x 0.3 x 0.2 cm. Tissue Description: Red-hdez soft tissue. The specimen is submitted for frozen section is entirety. Sections/Processi ng: (1) frozen tissue residue (T1) E - ??Labeled/Fixativ e: Right base of tongue, Fresh. Quantity/Size: Single, 1.7 x 0.4 x 0.2 cm. Tissue Description: Red-hdez, firm cauterized tissue. The specimen is submitted for frozen section in its entirety Sections/Processi ng: (1) frozen tissue residue (T1) F - ??Labeled/Fixativ e: Left base of tongue, Fresh. Quantity/Size: Single, 1.0 x 0.5 x 0.4 cm. Tissue Description: Red, rectangular soft tissue. The specimen is submitted for frozen section in its entirety. Sections/Processi ng: (1) frozen tissue residue (T1) G - ??Labeled/Fixativ e: Pre-epiglottic margin, Fresh. Quantity/Size: Single, 1.0 x 0.4 x 0.2 cm. Tissue Description: Red-pink mucosa. The specimen is submitted for frozen section in its entirety. Sections/Processi ng: (1) frozen tissue residue (T1) H - ??Labeled/Fixativ e: Right deep base of tongue, Fresh. . SPECIMEN PROCESSING Quantity/Size: Single, 0.7 x 0.5 x 0.4 cm. Tissue Description: Red, irregular soft tissue. The specimen is submitted for frozen section is entirety. Sections/Processi ng: (1) frozen tissue residue (T1) I - ??Labeled/Fixativ e: Left deep base of tongue, Fresh. Quantity/Size: Single, 1.5 x 0.5 x 0.4 cm. Tissue Description: Rectangular red soft tissue. The specimen is submitted for frozen section is entirely. Sections/Processi ng: (1) frozen tissue residue (T1) J - ??Labeled/Fixativ e: Left base of tongue #2, Fresh. Quantity/Size: Single, 1.0 x 0.5 x 0.3 cm. Tissue Description: Red-brown, firm cauterized tissue. The specimen is submitted for frozen section is entirety. Sections/Processi ng: (1) frozen tissue residue (T1) K - ??Labeled/Fixativ e: Level I, fresh. Quantity/Size: Single, 3.0 x 2.0 x 1.0 cm. Tissue Description: Irregular fragment of yellow-brown fibroadipose tissue. Cut section reveals yellow lobular adipose tissue. Lymph node: No lymph nodes identified. Sections/Processi ng: After thorough searching no lymph nodes are identified. The specimen is submitted in its entirety. (T4) L - ??Labeled/Fixativ e: Level 2, fresh. Quantity/Size: Single, 5.0 X 3.4 x 1.2 cm. Tissue Description: Irregular fragment of brown-yellow fibroadipose tissue with evidence of electrocautery artifact. Lymph nodes: Three lymph nodes identified ranging in size from 3.5 x 1.8 x 1.1 cm to 0.3 cm in greatest dimension. Cut section of the largest lymph node reveals pearson-hdez tissue with focal areas of hemorrhage. Sections/Processi ng: (1) one lymph node trisected submitted entirely; (2) one lymph node submitted entirely; (3-11) largest lymph node serially sectioned and submitted entirely. (R11) M - ??Labeled/Fixativ e: Level 3, fresh. Quantity/Size: Single, 3.8 x 3.6 x 1.6 cm. Tissue Description: Irregular fragment of yellow-brown fibroadipose tissue. Lymph nodes: Nine lymph nodes are identified ranging in size from 1.5 x 0.7 x 0.3 cm to 0.3 cm in greatest dimension. Cut section of the largest lymph node reveals hdez- pearson, homogenous jacqueline tissue. Sections/Processi ng: (1) one lymph node trisected submitted entirely; (2) one lymph node bisected submitted entirely; (3-4) largest lymph node serially sectioned submitted entirely; (5) two lymph nodes submitted partly; (6) two lymph nodes submitted entirely; (7) one lymph node submitted entirely; (8) one lymph node. (R8) N - ??Labeled/Fixativ e: Level 4, fresh. Quantity/Size: Single, 3.7 x 2.7 x 1.2 cm. Tissue Description: Irregular fragment of brown-yellow fibroadipose tissue. Lymph nodes: Four lymph nodes are identified ranging in size from 1.1 x 0.8 x 0.3 cm to 0.2 cm in greatest dimension. Cut section reveals pearson-hdez, homogenous jacqueline tissue. Sections/Processi ng: (1) largest lymph node bisected submitted entirely; (2) one lymph node bisected submitted entirely; (3) one lymph node bisected submitted entirely; (4) one lymph node submitted entirely. (R4) O - ??Labeled/Fixativ e: Final deep margin right tongue base, fresh. Quantity/Size: Single, 1.7 x 1.6 x 0.8 cm. Tissue Description: Intact, unoriented irregular portion of tongue tissue. One surface of the tissue is composed of light hdez, smooth possible mucosa. The opposite surface is composed of dark brown, roughened muscular tissue. Ink designation: The cut muscular surface is inked black. . SPECIMEN PROCESSING Cut section: tong-hdez muscular tissue with no lesions identified. Sections/Processi ng: The specimen is serially sectioned and submitted entirely. (T6) P - ??Labeled/Fixativ e: Left vallecula, fresh. Quantity/Size: Single, 0.7 x 0.3 x 0.2 cm. Tissue Description: Irregular fragment of pearson-hdez tissue with evidence of electrocautery artifact. Sections/Processi ng: The specimen is submitted in its entirety. (T1) Q - ??Labeled/Fixativ e: Final inferior margin midline, fresh. Quantity/Size: Single, 2.2 x 0.8 x 0.5 cm. Tissue Description: Irregular fragment of yellow lobular adipose tissue that is soft in consistency. No lesions identified grossly. Sections/Processi ng: The specimen is submitted in its entirety. (T1) R - Labeled/Fixative: Right tongue base resection and partial epiglottic resection, fresh. Quantity/Size: Single, 5.0 cm from inferior(pre-epig lottic) to base of tongue mucosa + deep, 4.5 cm from lateral pharynx to left lateral base of tongue, 3.0 cm from deep specimen edge to overlying mucosa. Tissue Description: Intact right partial glossectomy and partial epiglottic resection. The specimen comes oriented with a different anatomic positions labeled. Mucosa: Pearson-hdez, smooth, glistening. Ink designation: ??Inferior(pre-ep iglottic): Green ??Right epiglottis: Blue ??Lateral pharynx: [place] ??Base of tongue mucosa + deep: Blue ??Left lateral base of tongue: Red ??Left vallecula: Yellow ??Deep specimen edge: Black Lesion: ??Size: 2.5 x 1.5 x 1.4 cm ??Contour: Polypoid. ??Location: Base of tongue abutting the inferior ??(preepiglottic) specimen edge. ??Color: Pearson-hdez, variegated. ??Cut section: The lesion is polypoid and has pushing border into overlying ??mucosa. Lesion overlies the hyoid bone but does not grossly invade. Margins: ??Left lateral base of tongue (red): 0.7 cm from closest tumor ??border, grossly uninvolved. ??Left vallecula (yellow): 0.2 cm in closest to border, grossly ??uninvolved. Specimen edges: ??Inferior(pre-ep iglottic) (green): 0.5 cm from closest tumor ??border. ??Right epiglottis (blue): 0.3 cm from closest tumor border. ??Lateral pharynx (orange): 0.1 cm from closest tumor border. ??Base of tongue mucosa + deep (blue): 0.5 cm from closest ??tumor border. ??Deep specimen edge (black): 0.3 cm from closest tumor border. Sections/Processi ng:the specimen is inked and sectioned radially. Please refer to diagram for specific location from where sections were taken. (Note many inked edges do not represent ture margins, per orientation by surgeon)(1) tumor to closest inferior (pre-epiglottic, green) specimen edge; (2-3) tumor to closest left vallecula (yellow) margin; (4) tumor to closest left lateral base of tongue (red) margin; (5) tumor to closest right epiglottis (blue) specimen edge; (6) tumor to closest lateral pharynx ([place]) and deep specimen edges (black); (7) tumor to closest base of tongue mucosa + deep (blue) specimen edge. (R7) S - ??Labeled/Fixativ e: Tongue base/single stitch right lateral/double stitch left lateral, fresh. . SPECIMEN PROCESSING Quantity/Size: Single, 4.5 x 1.2 x 0.6 cm. Tissue Description: Portion of muscular tongue tissue composed of overlying mucosa and underlying muscular tissue. The pecimen comes oriented with a single stitch indicating right lateral and a double stitch indicating left lateral Mucosa: Pale tong, smooth with no lesions identified grossly. Muscle: Dark brown, roughened with no lesions identified grossly. Inked designation: Blue ink is used to designate the anterior margin and black ink is used to designate the posterior margin. Sections/Processi ng: The specimen is serially sectioned from right lateral to left lateral. (T19) ??cf ?Frozen Section FROZEN SECTION DIAGNOSIS J - Left base of tongue #2 for frozen section - benign lingual tonsils. 07/13/17 18:48 Electronically signed by: ??Aleshia Pino DO Verified: ??07/13/2017 ?Pathologist This intraoperative consultation should be interpreted as a preliminary diagnosis pending review of the entire specimen and special studies, if any. ?Frozen Section FROZEN SECTION DIAGNOSIS C - Right epiglottic margin for frozen section - Benign, focally inflamed. Note - Deeper sections were cut. D - Left epiglottic margin for frozen section - Benign. 07/13/17 17:52 E - Right base of tongue for frozen section - Benign. F - Left base of tongue for frozen section - Benign (one floater contaminant). G - Pre-epiglottic margin for frozen section - Benign. H - Right deep base of tongue for frozen section - Benign. I - Left deep base of tongue for frozen section - Benign (cauterized). 07/13/17 18:12 Electronically signed by: ??Aleshia Pino DO Verified: ??07/13/2017 ?Pathologist This intraoperative consultation should be interpreted as a preliminary diagnosis pending review of the entire specimen and special studies, if any. ?Frozen Section FROZEN SECTION DIAGNOSIS BFS - Lateral pharyngeal margin right side for frozen section: Negative for malignancy. . FROZEN SECTION DIAGNOSIS 07/13/17 17:07 Electronically signed by: ??Cas Lockwood MD Verified: ??07/13/2017 ?Pathologist This intraoperative consultation should be interpreted as a preliminary diagnosis pending review of the entire specimen and special studies, if any. ?Frozen Section FROZEN SECTION DIAGNOSIS AFS - Anterior deep tongue base, right for frozen section: Carcinoma is present. 07/13/17 12:23 Electronically signed by: ??Cas Lockwood MD Verified: ??07/13/2017 ?Pathologist This intraoperative consultation should be interpreted as a preliminary diagnosis pending review of the entire specimen and special studies, if any. [facility] 07/13/2017 12:0 4 PM EDT Sriram Contreras MD PATHOLOGY/CYTOLOGY ORDERABLES Performing Organization Address [facility] Co de Phone Number [facility] [place] [address] * Specimen to Pathology (surgical or derm) (07/13/2017 12:02 PM EDT) AP Specimen 07/13/2017 12:0 2 PM EDT 07/13/2017 12:02 PM EDT Narrative [facility] - 07/13/2017 12:02 PM EDT Specimen requisition ordered. ??Separate Pathology report to follow Sriram Contreras MD PATHOLOGY/CYTOLOGY ORDERABLES Performing Organization Address City/[facility]/ZIP Co de Phone Number [facility] [place] [address] * (ABNORMAL) BLOOD GAS 2 ARTERIAL (07/13/2017 10:35 AM EDT) pH Art 7.31(L) 7.35 - 7.45 [facility] pCO2 Art 45 35 - 45 mmHg [facility] pO2 Art 87 85 - 104 mmHg [facility] HCO3 Art 22.2 20.0 - 26.0 mmol/L [facility] BE Art -4.0(L) -3.0 - 3.0 mmol/L [facility] Hgb Blood Gas 15.6 13.7 - 16.5 gm/dL [facility] O2HB Art 95.0 94.0 - 97.0 % [facility] COHB Art 0.9 % [facility] Comment: Nonsmokers: 0.5-1.5% COHB Smokers: Variable, but usually less than 10% Toxic: 20-30% COHB Lethal: Greater than 60% COHB METHB Art 0.0 <=1.5 % [facility] Na Whole Blood 138 135 - 145 mmol/L [facility] K Whole Blood 5.0 3.5 - 5.0 mmol/L [facility] Comment: Please note: Patients with WBC >100,000 may have falsely elevated Potassium levels. Contact the Clinical Chemistry Laboratory if there are any questions. ICa Whole Blood 1.20 1.15 - 1.33 mmol/L [facility] [facility] Comment: Note: ??Total bilirubin higher than 20 mg/dL may lead to falsely low ionized calcium. CL Whole Blood 108(H) 98 - 107 mmol/L [facility] Gluc Whole Bld 119 65 - 199 mg/dL [facility] Comment:Diabetes: >=200 mg/d L plus symptoms. Lactate WB 2.1 0.5 - 2.2 mmol/L [facility] Blood specimen (specimen) 07/13/2017 10:35 AM EDT 07/13/2017 10:35 AM EDT Sriram Contreras MD CHEMISTRY ORDERABL ES Performing Organization Address City/[facility]/ZIP Co de Phone Number [facility] [place] [address] * ABORH Recheck Status (07/13/2017 6:27 AM EDT) ABORH Recheck Order Order Placed [facility] ABORH Type Recheck Complete [facility] Blood specimen (specimen) 07/13/2017 6:27 AM EDT 07/13/2017 6:38 AM EDT Narrative Resulting Agency Comment Spec In Lab Sriram Contreras MD BLOOD BANK LAB ORD ERABLES Performing Organization Address [facility]/ZIP Co de Phone Number [facility] [place] [address] * Antibody screen (07/13/2017 6:27 AM EDT) Ab Screen Interp Negative [facility] Expires at 2359 on: 07/16/2017 [facility] Blood specimen (specimen) 07/13/2017 6:27 AM EDT 07/13/2017 6:43 AM EDT Narrative Resulting Agency Comment Spec In Lab Sriram Contreras MD BLOOD BANK LAB ORD ERABLES Performing Organization Address City/[facility]/ZIP Co de Phone Number [facility] [place] [address] * ABO/Rh Typing (07/13/2017 6:27 AM EDT) ABORH Type O Neg [facility] Blood specimen (specimen) 07/13/2017 6:27 AM EDT 07/13/2017 6:43 AM EDT Narrative Resulting Agency Comment Spec In Lab Sriram Contreras MD BLOOD BANK LAB ORD ERABLES [facility] [place] [address] documented in this encounter Visit Diagnoses Diagnosis 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, face, and neck Persistent atrial fibrillation Atrial fibrillation QT prolongation Nonspecific abnormal electrocardiogram (ECG) (EKG) Other pulmonary embolism without acute cor pulmonale KORI on CPAP Obstructive sleep apnea (adult) (pediatric) Adult BMI 30+ Acute respiratory failure Atrial fibrillation Pulmonary embolism Other pulmonary embolism and infarction documented in this encounter Admitting Diagnoses Diagnosis Head and neck cancer Malignant neoplasm of head, face, and neck documented in this encounter Administered Medications Inactive Administered Medications - up to 3 most recent administrations Medication Order MAR Action Action Date Dose Rate Site acetaminophen (TYLENOL) 650 mg/20.3 mL oral liquid 1,000 mg 1,000 mg, Oral, EVERY 8 HOURS SCHEDULED, First dose on Wed07/13/17 at 2200, Until Discontinued, May give PO or Per Tube, Maximum dose of acetaminophen is 4000 mg from all sources in 24 hours., Routine Given 07/26/2017 9:45 AM EDT 1,000 mg Given 07/25/2017 1:31 PM EDT 1,000 mg Given 07/25/2017 5:23 AM EDT 1,000 mg acetaminophen (TYLENOL) tablet 650 mg 650 mg, Oral, EVERY 4 HOURS SCHEDULED, First dose on Wed07/27/17 at 1200, Until Discontinued, Maximum dose of acetaminophen is 4000 mg from all sources in 24 hours., Routine Given 07/29/2017 1:20 PM EDT 650 mg Given 07/29/2017 9:22 AM EDT 650 mg Given 07/29/2017 3:58 AM EDT 650 mg albuterol 90 mcg/actuation inhaler 6 puff 6 puff, Inhalation, EVERY 4 HOURS PRN, Starting on Wed07/14/17 at 1621, Until Wed07/29/17 at 1535, Wheezing, Routine, Is there a contraindication to the patient receiving this medication as a nebulizer? Yes Given 07/15/2017 4:59 PM EDT 6 puffs Given 07/15/2017 10:14 AM EDT 6 puffs Given 07/14/2017 4:28 PM EDT 6 puffs ampicillin-sulbactam (UNASYN) 3 g vial attach to sodium chloride 0.9% 100 mL Mini-Bag Plus 3 g, Intravenous, EVERY 6 HOURS, 3 doses, First dose on Wed07/13/17 at 2200, Last dose on Wed07/14/17 at 1000, Administer over 30 Minutes, Warning Vesicant/Irritant Medication , Recovery (Recovery-Hospital Unit), Indication for (Active or Suspected): Prophylaxis New Bag 07/14/2017 3:29 AM EDT 3 g 200 mL/hr New Bag 07/13/2017 9:57 PM EDT 3 g 200 mL/hr ampicillin-sulbactam (UNASYN) 3 g vial attach to sodium chloride 0.9% 100 mL Mini-Bag Plus 3 g, Intravenous, ONCE, 1 dose, On Wed07/14/17 at 1100, Administer over 30 Minutes, Warning Vesicant/Irritant Medication , Indication for (Active or Suspected): Prophylaxis New Bag 07/14/2017 10:28 AM EDT 3 g 200 mL /hr atropine injection 0.5 mg 0.5 mg, Intravenous, ONCE PRN, 1 dose, Starting on Wed07/17/17 at 2144, Until [place]abana 07/29/17 at 1535, Other, for HR <40, please notify , Routine chlorhexidine (PERIDEX) 0.12 % oral solution 15 mL 15 mL, Oral, 2 TIMES DAILY, First dose on Wed07/13/17 at 2115, Until Discontinued, Swab oral cavity. Ventilator-associated pneumonia prophylaxis, Routine Given 07/29/2017 9:23 AM EDT 15 mLs Given 07/28/2017 9:35 PM EDT 15 mLs Given 07/28/2017 9:36 AM EDT 15 mLs dexamethasone (DECADRON) injection 8 mg 8 mg, Intravenous, EVERY 8 HOURS SCHEDULED, 3 doses, First dose on Wed07/13/17 at 2200, Last dose on Wed07/14/17 at 1400 Given 07/14/2017 1:39 PM EDT 8 mg Given 07/14/2017 5:38 AM EDT 8 mg Given 07/13/2017 10:03 PM EDT 8 mg dexamethasone (DECADRON) injection 8 mg 8 mg, Intravenous, EVERY 8 HOURS SCHEDULED, 3 doses, First dose on Wed07/16/17 at 1400, Last dose on Wed07/17/17 at 0600 Given 07/17/2017 5:29 AM EDT 8 mg Given 07/16/2017 10:15 PM EDT 8 mg Given 07/16/2017 1:56 PM EDT 8 mg dexamethasone (DECADRON) injection 8 mg 8 mg, Intravenous, EVERY 8 HOURS SCHEDULED, 3 doses, First dose (after last reorder) on 07/17/17 at 1300, Last dose on 07/18/17 at 0600 Given 07/18/2017 5:36 AM EDT 8 mg Given 07/17/2017 10:06 PM EDT 8 mg Given 07/17/2017 12:59 PM EDT 8 mg dexmedetomidine (PRECEDEX) 4 mcg/mL (standard Adult & Jose greater than 20kg) infusion (premix) 0-1.7 mcg/kg/hr ? 133.4 kg (0-56.695 mL/hr, rounded to 0-56.7 mL/hr), Intravenous, CONTINUOUS, Starting on [place]abana 07/15/17 at 2330, Until 07/18/17 at 0306, Titrate to sedation level of RASS Goal (-)1 to 0 . Start at 0.4 mcg/kg/hr, adjust by 0.4 mcg/kg/hr every 15 minutes. Once stable, reassess patient every 30 minutes. Rate not to exceed 1.7 mcg/kg/hr. Change rate only after assessing and documenting RASS. Reassess sedation scores within 30 minutes after every rate change. If under sedated, increase rate by 0.4 mcg/kg/hr. If over sedated, hold sedative until target RASS (-)1 to 0 achieved and then restart at 50% of previous rate. Call pump house technician if goal not achieved at maximum rate., Routine Rate/Dose Change 07/17/2017 11:54 PM EDT 0.6 mcg/kg/hr 20 mL/hr Rate/Dose Change 07/17/2017 10:41 PM EDT 1 mcg/kg/hr 33.4 mL/hr Rate/Dose Change 07/17/2017 10:33 PM EDT 1.3 mcg/kg/hr 43. 4 mL/hr dexmedetomidine (PRECEDEX) 400 mcg/100 mL (4 mcg/mL) in 0.9% sodium chloride 1 dose, Starting on [place] 07/15/17 at 2305, Until [place]abana 07/15/17 at 2315, SUAD MARTINI: cabinet override dextrose 5% and sodium chloride 0.45% with potassium chloride 20 mEq infusion 100 mL/hr, Intravenous, CONTINUOUS, Starting on Wed07/13/17 at 2100, Until Wed07/14/17 at 1159, Warning Vesicant/Irritant Medication , Recovery (Recovery-Hospital Unit) New Bag 07/14/2017 7:34 AM EDT 100 mL/hr 100 mL/hr New Bag 07/13/2017 8:58 PM EDT 100 mL/hr 100 mL/hr dilTIAZem (CARDIZEM) 100 mg in dextrose 5% 100 mL infusion 5-15 mg/hr (5-15 mL/hr), Intravenous, CONTINUOUS, Starting on Wed07/19/17 at 1730, Until [place]abana 07/22/17 at 1020, Titrate to maintain heart rate of 110 ; Call MD for heart less than 60. Initiate infusion at 5 mg/hr and increase every 30 minutes by 5 mg/hr to a maximum dose of 15 mg/hr. Rate/Dose Verify 07/19/2017 8:00 PM EDT 5 mg/hr 5 mL/hr Rate/Dose Change 07/19/2017 5:55 PM EDT 5 mg/hr 5 mL/hr Rate/Dose Change 07/19/2017 5:52 PM EDT 10 mg/hr 10 mL/h r diphenhydrAMINE (BENADRYL) injection 25 mg 25 mg, Intravenous, ONCE, 1 dose, On Wed07/18/17 at 1830, Routine Given 07/18/2017 6:25 PM EDT 25 mg enoxaparin (LOVENOX) injection 100 mg 100 mg, Subcutaneous, EVERY 12 HOURS SCHEDULED (2 times per day), First dose on Wed07/27/17 at 1700, Until Discontinued, Routine Given 07/29/2017 10:22 AM EDT 100 mg Given 07/28/2017 9:35 PM EDT 100 mg Given 07/28/2017 9:35 AM EDT 100 mg enoxaparin (LOVENOX) injection 40 mg 40 mg, Subcutaneous, NIGHTLY, First dose on Wed07/13/17 at 2200, Until Discontinued, Routine Given 07/19/2017 8:21 PM EDT 40 mg Given 07/18/2017 8:51 PM EDT 40 mg Given 07/17/2017 8:31 PM EDT 40 mg fentaNYL 50 mcg/mL infusion 0-200 mcg/hr (0-4 mL/hr), Intravenous, CONTINUOUS, Starting on 07/13/17 at 2115, Until 07/17/17 at 1035, Pain Scale Goal Less than or equal to 3 or to patient verbalized goal. Initial Infusion rate: 50 mcg/hour; Adjust hourly rate by 50% AND bolus 50% of new hourly rate every 15 minutes to achieve goal. Rate not to exceed 200 mcg/hr. Pain assessment every 15 minutes initially and reassess pain 15 minutes after each bolus given. Pain assessment MUST be documented prior to rate change. New Bag 07/17/2017 8:04 AM EDT 75 mcg/h r 1.5 mL/hr Rate/Dose Change 07/17/2017 4:14 AM EDT 75 mcg/hr 1.5 mL/ hr Rate/Dose Change 07/16/2017 10:52 PM EDT 100 mcg/hr 2 mL/h r fentaNYL 50 mcg/mL infusion 0-200 mcg/hr (0-4 mL/hr), Intravenous, CONTINUOUS, Starting on 07/19/17 at 1815, Until 07/25/17 at 1203, Pain Scale Goal Less than or equal to 3 or to patient verbalized goal. Initial Infusion rate: 50 mcg/hour; Adjust hourly rate by 50% AND bolus 50% of new hourly rate every 15 minutes to achieve goal. Rate not to exceed 200 mcg/hr. Pain assessment every 15 minutes initially and reassess pain 15 minutes after each bolus given. Pain assessment MUST be documented prior to rate change. Rate/Dose Verify 07/23/2017 10:00 AM EDT 25 mcg/hr 0.5 mL/hr Rate/Dose Verify 07/21/2017 8:00 PM EDT 25 mcg/hr 0.5 mL/ hr New Bag 07/21/2017 6:38 AM EDT 25 mcg/hr 0.5 mL/hr fentaNYL 50mcg/mL injection 25 mcg, Intravenous, ONCE, 1 dose, On 07/17/17 at 1415, Routine Given 07/17/2017 2:05 PM EDT 25 mcg fentaNYL 50mcg/mL injection 25 mcg, Intravenous, EVERY 4 HOURS PRN, Starting on 07/17/17 at 1837, Until 07/18/17 at 1319, Pain, Routine Given 07/18/2017 1:13 PM EDT 25 mcg Given 07/18/2017 5:42 AM EDT 25 mcg Given 07/18/2017 1:42 AM EDT 25 mcg fentaNYL 50mcg/mL injection 50 mcg, Intravenous, EVERY 4 HOURS PRN, Starting on 07/18/17 at 1319, Until 07/19/17 at 1806, Pain, Routine Given 07/18/2017 2:31 PM EDT 50 mcg fentaNYL bolus from bag 25 mcg 25 mcg, Intravenous, ONCE, 1 dose, On Wed07/13/17 at 2115, Initial bolus dose: IV once now followed by continuous infusion., Routine Bolus from Bag 07/13/2017 9:12 PM EDT 25 mcg fentaNYL bolus from bag 25-100 mcg 25-100 mcg, Intravenous, EVERY 15 MIN PRN, Starting on Wed07/13/17 at 2050, Until 07/17/17 at 1035, Pain, Refer to infusion order for Bolus instructions. Reassess pain 15 minutes after bolus given., Routine Bolus from Bag 07/17/2017 4:14 AM EDT 100 mcg Bolus from Bag 07/16/2017 8:21 PM EDT 50 mcg Bolus from Bag 07/16/2017 4:29 PM EDT 50 mcg fentaNYL bolus from bag 25-100 mcg 25-100 mcg, Intravenous, EVERY 15 MIN PRN, Starting on Wed07/19/17 at 1756, Until 07/25/17 at 1203, Pain, Refer to infusion order for Bolus instructions. Reassess pain 15 minutes after bolus given., Routine Bolus from Bag 07/21/2017 6:36 AM EDT 5 0 mcg Bolus from Bag 07/21/2017 4:00 AM EDT 25 mcg Bolus from Bag 07/21/2017 3:29 AM EDT 50 mcg flu vacc (65 yrs+) (PF) (FLUZONE HD) IM injection 0.5 mL 0.5 mL, Intramuscular, PRIOR TO DISCHARGE, 1 dose, Starting on 07/28/17 at 1317, Until Shabana 07/29/17 at 1535, Per Protocol, Routine furosemide (LASIX) injection 20 mg 20 mg, Intravenous, ONCE, 1 dose, On 07/23/17 at 1030 Given 07/23/2017 10:35 AM EDT 20 mg furosemide (LASIX) injection 40 mg 40 mg, Intravenous, ONCE, 1 dose, On 07/17/17 at 1345 Given 07/17/2017 1:32 PM EDT 40 mg furosemide (LASIX) injection 40 mg 40 mg, Intravenous, ONCE, 1 dose, On 07/17/17 at 2145 Given 07/17/2017 10:09 PM EDT 40 mg glycopyrrolate (ROBINUL) injection 0.1 mg 0.1 mg, Intravenous, EVERY 4 HOURS SCHEDULED, First dose on Shabana 07/22/17 at 1200, Until Discontinued, Routine Given 07/25/2017 8:29 AM EDT 0.1 mg Given 07/25/2017 4:38 AM EDT 0.1 mg Given 07/25/2017 12:08 AM EDT 0.1 mg haloperidol lactate (HALDOL) injection 5 mg 5 mg, Intravenous, ONCE, 1 dose, On 07/17/17 at 2215, Routine Given 07/17/2017 10:13 PM EDT 5 mg haloperidol lactate (HALDOL) injection 5 mg 5 mg, Intravenous, EVERY 6 HOURS PRN, Starting on [place] 07/18/17 at 0306, Until [place] 07/18/17 at 1313, Agitation, Routine Given 07/18/2017 1:02 PM EDT 5 mg Given 07/18/2017 3:47 AM EDT 5 mg haloperidol lactate (HALDOL) injection 5 mg 5 mg, Intravenous, EVERY 6 HOURS, First dose (after last modification) on 07/18/17 at 1930, Until Discontinued, Routine Given 07/19/2017 8:16 AM EDT 5 mg Given 07/19/2017 2:06 AM EDT 5 mg Given 07/18/2017 8:45 PM EDT 5 mg heparin (porcine) injection 0-8,000 Units 0-8,000 Units, Intravenous, BOLUS PER HEPARIN PROTOCOL, Starting on 07/20/17 at 1656, Until 07/27/17 at 1739, Per Protocol, START ADJUSTMENT SCHEDULE 6 HOURS AFTER STARTING INFUSION aPTT Between 60 - 79 seconds: Bolus 4,000 units aPTT Less than 60 seconds: Bolus 8,000 units Increase infusion and recheck aPTT in 6 hours. , Routine Given 07/26/2017 7:00 AM EDT 4,000 Units Given 07/21/2017 5:00 PM EDT 4,000 Units Given 07/21/2017 9:19 AM EDT 4,000 Units heparin 25,000 units in dextrose 5% 500 mL infusion 0-5,000 Units/hr (0-100 mL/hr), Intravenous, CONTINUOUS, Starting on Wed07/20/17 at 1715, Until Wed07/27/17 at 1739, Begin infusion at 1,750 units per hr (15 units/kg/hr). MAX INITIAL infusion rate is 1,750 units/hr Target aPTT = 80 - 114 seconds Start adjustment schedule 6 hours after starting infusion. If aPTT is: - Less than 60 seconds, administer PRN bolus and increase rate by 450 units per hr (4 units/kg/hr) - 60-79 seconds, administer PRN bolus AND increase rate by 250 units per hr (2 units/kg/hr) - 80-114 seconds, no change - 115-129 seconds, decrease rate by 100 units per hr (1 unit/kg/hr) - 130-145 seconds, stop infusion for 30 minutes then decrease rate by 250 units per hr (2 units/kg/hr) - Greater than 145 seconds, stop infusion for 60 minutes then decrease rate by 350 units per hour (3 units/kg/hr) Repeat aPTT 6 hours after initiating heparin. Then 6 hours after each dose adjustment. When 2 consecutive aPTT within target range of 80 - 114 seconds, change aPTT to once every 24 hours with A.M. labs while on heparin. RN to order required aPTT - Per Protocol, Routine, Indication: Pulmonary Embolism New Bag 07/27/2017 6:34 AM EDT 2,750 Units/hr 55 mL/hr Rate/Dose Verify 07/27/2017 3:22 AM EDT 2,750 Units/hr 55 mL/hr Rate/Dose Verify 07/26/2017 10:13 PM EDT 2,750 Units/hr 55 mL/hr hydrALAZINE (APRESOLINE) 20 mg/mL injection 1 dose, Starting on 07/17/17 at 1013, Until 07/17/17 at 1020, SUZIE CASANOVA: cabinet override hydrALAZINE (APRESOLINE) injection 5 mg 5 mg, Intravenous, EVERY 4 HOURS PRN, Starting on 07/17/17 at 1009, Until Shabana 07/29/17 at 1535, High Blood Pressure Given 07/25/2017 2:24 AM EDT 5 mg Given 07/18/2017 1:22 PM EDT 5 mg Given 07/18/2017 6:35 AM EDT 5 mg insulin lispro (humaLOG) VIAL injection 1-4 Units 1-4 Units, Subcutaneous, EVERY 4 HOURS SCHEDULED, First dose on 07/18/17 at 1245, Until Discontinued, CORRECTION BOLUS Sensitive to insulin lean patient or total daily dose of all insulin needed to achieve glycemic control less than 30 units BG 140 - 160 Give 1 unit BG 161 - 200 Give 2 units BG 201 - 240 Give 3 units BG greater than 240, give 4 units and recheck BG in 2 hours. If less than 240 after two hours, give no insulin and resume prior schedule. If BG remains greater than 240, repeat 4 units (no more than three times) & call for new basal insulin orders. Do not hold if NPO, unless specifically told to do so., STAT Given 07/27/2017 12:02 PM EDT 1 Units iohexol (OMNIPAQUE) 350 mg/mL solution 0-200 mL 0-200 mL, Intravenous, ONCE PRN, 1 dose, Starting on Tu07/20/17 at 1318, Until Tu07/20/17 at 1318, Per Protocol, Warning Vesicant/Irritant Medication , Radiology Contrast, Routine Given 07/20/2017 1:18 PM EDT 95 mLs labetalol (NORMODYNE,TRANDATE) 5 mg/mL injection 1 dose, Starting on 07/17/17 at 1029, Until 07/17/17 at 1030, CAS RIVERA: cabinet override labetalol (NORMODYNE,TRANDATE) injection 10 mg 10 mg, Intravenous, ONCE, 1 dose, On 07/17/17 at 1100, Routine Given 07/17/2017 10:30 AM EDT 10 mg labetalol (NORMODYNE,TRANDATE) injection 10 mg 10 mg, Intravenous, ONCE PRN, 1 dose, Starting on 07/17/17 at 1036, Until 07/24/17 at 1308, High Blood Pressure, SBP>160, Routine Given 07/24/2017 1:08 PM EDT 10 mg lactated Ringers 500 mL IV bolus Intravenous, ONCE, 1 dose, On Wed07/21/17 at 2300 Given 07/21/2017 11:30 PM EDT lactated Ringers infusion 1,000 mL 1,000 mL, at 100 mL/hr, Intravenous, CONTINUOUS, Starting on Wed07/13/17 at 0730, Until Wed07/13/17 at 2003, Day of Surgery (Day of Procedure) New Bag 07/13/2017 7:48 AM EDT New Bag 07/13/2017 7:19 AM EDT 1,000 mLs 100 mL/hr lactated Ringers infusion 100 mL/hr, Intravenous, CONTINUOUS, Starting on Wed07/15/17 at 0000, Until Shabana 07/15/17 at 1703 New Bag 07/15/2017 9:54 AM EDT 100 mL/hr 100 mL/hr New Bag 07/15/2017 12:12 AM EDT 100 mL/hr 100 mL/hr lactated Ringers infusion 10 mL/hr, Intravenous, CONTINUOUS, Starting on Wed07/19/17 at 2130, Until Wed07/28/17 at 0726, KVO Rate/Dose Verify 07/23/2017 10:00 AM EDT 10 mL/hr 10 mL/hr Rate/Dose Verify 07/23/2017 4:00 AM EDT 10 mL/hr 10 mL/h r New Bag 07/19/2017 9:21 PM EDT 10 mL/hr 10 mL/hr Lactobacillus (BACID) tablet 1 tablet 1 tablet, Oral, DAILY, First dose on 07/24/17 at 1245, Until Discontinued, Routine Given 07/29/2017 9:22 AM EDT 1 tablet Given 07/28/2017 9:35 AM EDT 1 tablet Given 07/26/2017 9:47 AM EDT 1 tablet lidocaine (XYLOCAINE) 10 mg/mL (1 %) injection 3 mg 3 mg (0.3 mL), Subcutaneous, ONCE PRN, 1 dose, Starting on Wed07/13/17 at 0705, Until Wed07/13/17 at 0719, for discomfort with PIV insertion, Day of Surgery (Day of Procedure), Routine Given 07/13/2017 7:19 AM EDT 3 mg lidocaine (XYLOCAINE) 10 mg/mL (1 %) injection 1 dose, Starting on Wed07/27/17 at 0948, Until Wed07/27/17 at 1000, JV VALDEZ: cabinet override Given 07/27/2017 10:00 AM EDT 10 mg lidocaine (XYLOCAINE) 4 % (40 mg/mL) external solution Starting on 07/17/17 at 1308, 1 dose, Until 07/17/17 at 1309, GURPREET CASTRO: cabinet override lidocaine (XYLOCAINE) 4 % (40 mg/mL) external solution Topical (Top), ONCE, On 07/17/17 at 1615, 1 dose, GURPREET CASTRO: cabinet override Given 07/17/2017 1:09 PM EDT lidocaine (XYLOCAINE) 4 % (40 mg/mL) external solution Topical (Top), ONCE, On Wed07/19/17 at 1745, 1 dose Given 07/19/2017 5:35 PM EDT magnesium sulfate 1g in dextrose 5% 100mL 1 g, Intravenous, ONCE, 1 dose, On Wed07/14/17 at 0900, Administer over 60 Minutes New Bag 07/14/2017 9:27 AM EDT 1 g 100 mL/hr magnesium sulfate 2 g in sterile water 50 mL 2 g, Intravenous, ONCE, 1 dose, On Wed07/14/17 at 1815, Administer over 120 Minutes New Bag 07/14/2017 6:13 PM EDT 2 g 25 mL/hr magnesium sulfate 2 g in sterile water 50 mL 2 g, Intravenous, ONCE, 1 dose, On Wed07/16/17 at 1700, Administer over 120 Minutes New Bag 07/16/2017 4:52 PM EDT 2 g 25 mL/hr magnesium sulfate 2 g in sterile water 50 mL 2 g, Intravenous, ONCE, 1 dose, On 07/17/17 at 2330, Administer over 120 Minutes New Bag 07/17/2017 11:19 PM EDT 2 g 25 mL/hr magnesium sulfate 2 g in sterile water 50 mL 2 g, Intravenous, ONCE, 1 dose, On Wed07/20/17 at 1145, Administer over 120 Minutes New Bag 07/20/2017 11:37 AM EDT 2 g 25 mL/hr magnesium sulfate 2 g in sterile water 50 mL 2 g, Intravenous, ONCE, 1 dose, On Wed07/21/17 at 2345, Administer over 120 Minutes New Bag 07/22/2017 1:05 AM EDT 2 g 25 mL/hr magnesium sulfate 2 g in sterile water 50 mL 2 g, Intravenous, ONCE, 1 dose, On Wed07/27/17 at 1130, Administer over 120 Minutes New Bag 07/27/2017 11:58 AM EDT 2 g 25 mL/hr melatonin tablet 3 mg 3 mg, Oral, NIGHTLY, First dose on [place] 07/29/17 at 0430, Until Discontinued, Routine Given 07/29/2017 4:20 AM EDT 3 mg meTOPROLOL (LOPRESSOR) 5 mg/5 mL injection 1 dose, Starting on Wed07/19/17 at 1647, Until Wed07/19/17 at 1701, CAS RIEVRA: cabinet override meTOPROLOL (LOPRESSOR) injection 5 mg 5 mg, Intravenous, EVERY 6 HOURS, First dose on Wed07/14/17 at 1130, Until Discontinued, Please hold and notify media relations intern for SBP under 100 and/or HR under 60 Given 07/19/2017 10:30 AM EDT 5 mg Given 07/19/2017 5:58 AM EDT 5 mg Given 07/18/2017 11:44 PM EDT 5 mg meTOPROLOL (LOPRESSOR) injection 5 mg 5 mg, Intravenous, EVERY 6 HOURS, First dose on Wed07/19/17 at 1800, Until Discontinued Given 07/19/2017 5:01 PM EDT 5 mg meTOPROLOL (LOPRESSOR) injection 5 mg 5 mg, Intravenous, EVERY 5 MIN PRN, Starting on Wed07/19/17 at 1732, Until Wed07/29/17 at 1535, High Blood Pressure, Elevated Heart Rate, For afib HR greater than 110 Given 07/19/2017 5:25 PM EDT 5 mg Given 07/19/2017 5:00 PM EDT 5 mg niCARdipine 0.2 mg/mL (Standard Adult and Jose greater than 20 kg) infusion 0-15 mg/hr (0-75 mL/hr), Intravenous, CONTINUOUS, Starting on 07/17/17 at 1200, Until [place] 07/22/17 at 1019, Titrate to SBP greater than 90 and less than 160 mmHg. Start at 5 mg/hour, titrate to maintain target SBP, adjust infusion rate by 2.5 mg/hour every 5 minutes to a maximum of 15 mg/hour. Rotate IV site every 12 hours, Routine Restarted 07/18/2017 2:28 PM EDT 5 mg/hr 25 mL/hr New Bag 07/17/2017 12:14 PM EDT 10 mg/hr 50 mL/hr nystatin (MYCOSTATIN) 100,000 unit/mL oral suspension 500,000 Units 500,000 Units, Oral, 4 TIMES DAILY, First dose on [place] 07/22/17 at 0900, Until Discontinued, Routine Given 07/29/2017 1:21 PM EDT 500,000 Units Given 07/29/2017 9:23 AM EDT 500,000 Units Given 07/28/2017 9:35 PM EDT 500,000 Units pantoprazole (PROTONIX) injection 40 mg 40 mg, Intravenous, DAILY, First dose on Wed07/14/17 at 0900, Until Discontinued, Reconstitute with 10 mL of normal saline to a concentration of 4 mg/mL and infuse slowly over 2 minutes. , Routine Given 07/27/2017 10:54 AM EDT 40 mg Given 07/26/2017 9:47 AM EDT 40 mg Given 07/25/2017 8:30 AM EDT 40 mg pantoprazole (PROTONIX) tablet 40 mg 40 mg, Oral, DAILY, First dose on Wed07/14/17 at 0900, Until Discontinued, DO NOT CRUSH OR OPEN If unable to take PO, may give IV Given 07/29/2017 9:23 AM EDT 40 mg Given 07/28/2017 9:35 AM EDT 40 mg piperacillin-tazobactam (ZOSYN) 4.5 g vial attach to sodium chloride 0.9% 100 mL Mini-Bag Plus 4.5 g, Intravenous, EVERY 8 HOURS, 20 doses, First dose on Wed07/21/17 at 1045, Last dose on Wed07/27/17 at 1845, Administer over 4 Hours, Warning Vesicant/Irritant Medication , Indication for (Active or Suspected): Pneumonia (Health-Care) New Bag 07/27/2017 6:57 PM EDT 4.5 g 25 mL/hr New Bag 07/27/2017 11:25 AM EDT 4.5 g 25 mL/hr New Bag 07/27/2017 4:00 AM EDT 4.5 g 25 mL/hr polyethylene glycol (MIRALAX) packet 17 g 17 g, Per NG tube, DAILY, First dose on Wed07/14/17 at 0900, Until Discontinued, Routine Given 07/15/2017 8:57 AM EDT 17 g Given 07/14/2017 9:03 AM EDT 17 g polyethylene glycol (MIRALAX) packet 17 g 17 g, Per NG tube, DAILY PRN, Starting on Wed07/21/17 at 0845, Until [place] 07/29/17 at 1535, Constipation, Routine potassium chloride (KAYCIEL) 20 mEq/15 mL oral solution 20-60 mEq 20-60 mEq, Per NG tube, EVERY 4 HOURS PRN, Starting on Wed07/19/17 at 0538, Until [place] 07/29/17 at 1535, hypokalemia, For serum potassium: 3.9 - 4 mMol/L = 20 mEq. 3.6 - 3.8 mMol/L = 40 mEq. 3.3 - 3.5 mMol/L = 40 mEq. 2.8 - 3.2 mMol/L = 60 mEq. Less than 2.8 = Call physician, then begin potassium chloride replacement via central or peripheral IV route. See instructions for Potassium Protocol in online policies., Routine Given 07/25/2017 5:23 AM EDT 40 mEq Given 07/24/2017 2:27 AM EDT 20 mEq Given 07/23/2017 1:23 AM EDT 40 mEq propofol (DIPRIVAN) 10 mg/mL infusion 1 dose, Starting on Wed07/13/17 at 2041, Until Wed07/13/17 at 8, MENDOZA LEO: cabinet override propofol (DIPRIVAN) infusion 0-50 mcg/kg/min ? 133.4 kg (0-40.02 mL/hr, rounded to 0-40 mL/hr), Intravenous, CONTINUOUS, Starting on Wed07/13/17 at 2115, Until Wed07/18/17 at 1313, Titrate to sedation level of RASS Goal (-)1 to 0 . Start at 20 mcg/kg/min, adjust rate by 10 mcg/kg/min every 3 minutes. Once stable, reassess patient every 30 minutes. Rate not to exceed 50 mcg/kg/minute. Change rate only after assessing and documenting RASS. Reassess sedation scores within 30 minutes after every rate change. If under sedated, increase rate by 10 mcg/kg/min. If over sedated, hold sedative until target RASS (-)1 to 0 achieved and then restart at 50% of previous rate. Call pump house technician if goal not achieved at maximum rate., Routine New Bag 07/17/2017 9:17 AM EDT 50 mcg/kg/min 40 m L/hr Rate/Dose Change 07/17/2017 7:00 AM EDT 30 mcg/kg/min 24 m L/hr Rate/Dose Change 07/17/2017 6:00 AM EDT 40 mcg/kg/min 32 m L/hr propofol (DIPRIVAN) infusion 0-50 mcg/kg/min ? 142.5 kg (0-42.75 mL/hr, rounded to 0-42.8 mL/hr), Intravenous, CONTINUOUS, Starting on Wed07/19/17 at 1815, Until 07/25/17 at 1203, Titrate to sedation level of RASS Goal (-)1 to 0 . Start at 20 mcg/kg/min, adjust rate by 10 mcg/kg/min every 3 minutes. Once stable, reassess patient every 30 minutes. Rate not to exceed 50 mcg/kg/minute. Change rate only after assessing and documenting RASS. Reassess sedation scores within 30 minutes after every rate change. If under sedated, increase rate by 10 mcg/kg/min. If over sedated, hold sedative until target RASS (-)1 to 0 achieved and then restart at 50% of previous rate. Call pump house technician if goal not achieved at maximum rate., Routine New Bag 07/24/2017 3:17 AM EDT 15 mcg/kg/min 12.8 mL/hr Rate/Dose Change 07/23/2017 9:31 PM EDT 15 mcg/kg/min 12.8 mL/hr New Bag 07/23/2017 8:12 PM EDT 10 mcg/kg/min 8.6 mL/hr protein powder (BENEPROTEIN) 2 scoop 2 scoop, Per NG tube, 3 TIMES DAILY, First dose on Wed07/14/17 at 1115, Until Discontinued, Routine Given 07/26/2017 9:00 AM EDT 2 scoops Given 07/25/2017 10:00 PM EDT 2 scoops Given 07/25/2017 3:26 PM EDT 2 scoops racepinephrine (VAPONEFRIN) 2.25 % nebulizer solution 0.5 mL 0.5 mL, Nebulization, ONCE, 1 dose, On Wed07/17/17 at 1300, STAT Given 07/17/2017 12:43 PM EDT 0.5 mLs racepinephrine (VAPONEFRIN) 2.25 % nebulizer solution 1 dose, Starting on Wed07/17/17 at 1239, Until Wed07/17/17 at 1243, MARTIN SVEN: cabinet override sodium chloride 0.9% infusion 100 mL/hr, Intravenous, CONTINUOUS, Starting on Wed07/16/17 at 0000, Until 07/17/17 at 1106 New Bag 07/17/2017 8:04 AM EDT 100 mL/hr 100 mL/hr New Bag 07/17/2017 5:40 AM EDT 100 mL/hr 100 mL/hr New Bag 07/15/2017 11:01 PM EDT 100 mL/hr 100 mL/hr tamsulosin (FLOMAX) ER capsule 0.4 mg 0.4 mg, Oral, DAILY, First dose on Wed07/27/17 at 1400, Until Discontinued, DO NOT CRUSH OR OPEN, Routine Given 07/29/2017 9:23 AM EDT 0.4 mg Given 07/28/2017 9:35 AM EDT 0.4 mg Given 07/27/2017 1:30 PM EDT 0.4 mg thiamine (B-1) injection 100 mg 100 mg, Intravenous, ONCE, 1 dose, On Wed07/19/17 at 0845 Given 07/19/2017 9:13 AM EDT 100 mg tube feeding diet 1,300 mL, Per NG tube, at 65 mL/hr, CONTINUOUS, Starting on Wed07/14/17 at 1115, Until Wed07/26/17 at 1154, Administer flushes and check residuals per policy, Which tube feed product? Peptamen Intense VHP (aka Bariatric), Initial Rate: (mL/hr): 20, Advance by: (mL): 10, Advance every: Q4H, Goal final rate: (mL/hr): 65, Additional Information (if any): This is goal rate while in ICU on Propofol. New Bag 07/25/2017 4:14 PM EDT 1,300 mLs 65 mL/hr Rate/Dose Change 07/25/2017 9:00 AM EDT 1,300 mLs 65 mL/h r Rate/Dose Change 07/25/2017 4:45 AM EDT 1,300 mLs 50 mL/h r documented in this encounter Active and Recently Administered Medications Times are shown in EDT. Scheduled Medication Order 07/27/2017 07/28/2017 07/29/2017 acetaminophen (TYLENOL) tablet 650 mg 650 mg, Oral, EVERY 4 HOURS SCHEDULED, First dose on Wed07/27/17 at 1200, Until Discontinued, Maximum dose of acetaminophen is 4000 mg from all sources in 24 hours., Routine 1158 (Given - Provider: Jeannie Stiles RN)1720 (Given - Provider: Jv Valdez RN)2053 (Given - Provider: Dixie Randhawa RN) 0000 (Not Given - Provider: Dixie Randhawa RN - Reason: Patient/family refused)0451 (Given - Provider: Dixie Randhawa RN)0935 (Given - Provider: Jv Valdez RN)1235 (Given - Provider: Jeannie Stiles RN)1700 (Given - Provider: Jeannie Stiles RN)2135 (Given - Provider: Abeba Porter RN) 0000 (Not Given - Provider: Abeba Porter RN - Reason: Patient/family refused)0358 (Given - Provider: Abeba Porter RN)0922 (Given - Provider: Radha Colon RN)1320 (Given - Provider: Radha Colon RN) chlorhexidine (PERIDEX) 0.12 % oral solution 15 mL 15 mL, Oral, 2 TIMES DAILY, First dose on Wed07/13/17 at 2115, Until Discontinued, Swab oral cavity. Ventilator-associated pneumonia prophylaxis, Routine 1055 (Given - Provider: Jeannie Stiles RN)2053 (Given - Provider: Dixie Randhawa RN) 0936 (Given - Provider: Jv Valdez RN)2135 (Given - Provider: Abeba Porter RN) 0923 (Given - Provider: Radha Colon RN) enoxaparin (LOVENOX) injection 100 mg 100 mg, Subcutaneous, EVERY 12 HOURS SCHEDULED (2 times per day), First dose on Wed07/27/17 at 1700, Until Discontinued, Routine 1608 (Given - Provider: Jeannie Stlies RN) 0935 (Given - Provider: Jv Valdez, RN)2135 (Given - Provider: Abeba Porter, RN) 1022 (Given - Provider: Radha Colon, BRENNA - Comment: missing dose) insulin lispro (humaLOG) VIAL injection 1-4 Units (CANCELED) 1-4 Units, Subcutaneous, EVERY 4 HOURS SCHEDULED, First dose on Wed07/18/17 at 1245, Until Discontinued, CORRECTION BOLUS Sensitive to insulin lean patient or total daily dose of all insulin needed to achieve glycemic control less than 30 units BG 140 - 160 Give 1 unit BG 161 - 200 Give 2 units BG 201 - 240 Give 3 units BG greater than 240, give 4 units and recheck BG in 2 hours. If less than 240 after two hours, give no insulin and resume prior schedule. If BG remains greater than 240, repeat 4 units (no more than three times) & call for new basal insulin orders. Do not hold if NPO, unless specifically told to do so., STAT 0121 (Not Given - Provider: Lorna Browne RN - Reason: Order parameters not met)0511 (Not Given - Provider: Lorna Browne RN - Reason: Order parameters not met)0800 (Not Given - Provider: Jeannie Stiles RN - Reason: Order parameters not met)1202 (Given - Provider: Jeannie Stiles RN - Comment: blood sugar 147)1600 (Not Given - Provider: Jeannie Stiles RN - Reason: Order parameters not met)2000 (Not Given - Provider: Dixie Randhawa RN - Reason: Order parameters not met) 0000 (Not Given - Provider: Dixie Randhawa RN - Reason: Order parameters not met)0400 (Not Given - Provider: Dixie Randhawa RN - Reason: Order parameters not met)0800 (Not Given - Provider: Jeannie Stiles RN - Reason: Order parameters not met)1200 (Not Given - Provider: Jeannie Stiles RN - Reason: Order parameters not met) Lactobacillus (BACID) tablet 1 tablet 1 tablet, Oral, DAILY, First dose on Wed07/24/17 at 1245, Until Discontinued, Routine 0900 (Not Given - Provider: Jeannie Stiles RN - Reason: Loss of access) 0935 (Given - Provider: Jv Valdez, BRENNA) 0922 (Given - Provider: Radha Colon, RN) magnesium sulfate 2 g in sterile water 50 mL (COMPLETED) 2 g, Intravenous, ONCE, 1 dose, On Wed07/27/17 at 1130, Administer over 120 Minutes 1158 (New Bag - Provider: Jeannie Stiles RN)1358 (Stopped - Provider: Jv Valdez, BRENNA) melatonin tablet 3 mg 3 mg, Oral, NIGHTLY, First dose on Wed07/29/17 at 0430, Until Discontinued, Routine 0420 (Given - Provider: Abeba Porter, BRENNA) nystatin (MYCOSTATIN) 100,000 unit/mL oral suspension 500,000 Units 500,000 Units, Oral, 4 TIMES DAILY, First dose on Wed07/22/17 at 0900, Until Discontinued, Routine 1054 (Given - Provider: Jeannie Stiles RN)1330 (Given - Provider: Jeannie Stiles RN)1720 (Given - Provider: Jv Valdez, BRENNA)2054 (Given - Provider: Dixie Randhawa RN) 0935 (Given - Provider: Jv Valdez, BRENNA)1235 (Given - Provider: Jeannie Stiles RN)1700 (Given - Provider: Jeannie Stiles RN)2135 (Given - Provider: Abeba Porter, BRENNA) 0923 (Given - Provider: Radha Colon, RN)1321 (Given - Provider: Radha Colon, RN) pantoprazole (PROTONIX) injection 40 mg(Linked Group 1) 40 mg, Intravenous, DAILY, First dose on Wed07/14/17 at 0900, Until Discontinued, Reconstitute with 10 mL of normal saline to a concentration of 4 mg/mL and infuse slowly over 2 minutes. , Routine 1054 (Given - Provider: Jeannie Stiles RN) 0935 (See Alternative - Provider: Jv Lyndaker, RN) 0923 (See Alternative - Provider: Radha Colon, RN) pantoprazole (PROTONIX) tablet 40 mg(Linked Group 1) 40 mg, Oral, DAILY, First dose on Wed07/14/17 at 0900, Until Discontinued, DO NOT CRUSH OR OPEN If unable to take PO, may give IV 1054 (See Alternative - Provider: Jeannie Stiles RN) 0935 (Given - Provider: Jv Valdez RN) 0923 (Given - Provider: Radha Colon RN) piperacillin-tazobactam (ZOSYN) 4.5 g vial attach to sodium chloride 0.9% 100 mL Mini-Bag Plus (COMPLETED) 4.5 g, Intravenous, EVERY 8 HOURS, 20 doses, First dose on Wed07/21/17 at 1045, Last dose on Wed07/27/17 at 1845, Administer over 4 Hours, Warning Vesicant/Irritant Medication , Indication for (Active or Suspected): Pneumonia (Health-[facility]) 0153 (Stopped - Provider: Lorna Browne RN)0400 (New Bag - Provider: Lorna Browne RN)0800 (Stopped - Provider: Jeannie Stiles RN)1125 (New Bag - Provider: Jeannie Stiles RN)1525 (Stopped - Provider: Jeannie Stiles RN)1857 (New Bag - Provider: Jeannie Stiles RN) 0025 (Stopped - Provider: Dixie Randhawa RN) tamsulosin (FLOMAX) ER capsule 0.4 mg 0.4 mg, Oral, DAILY, First dose on Wed07/27/17 at 1400, Until Discontinued, DO NOT CRUSH OR OPEN, Routine 1330 (Given - Provider: Jeannie Stiles RN) 0935 (Given - Provider: Jv Valdez RN) 0923 (Given - Provider: Radha Colon, BRENNA) Continuous Medication Order 07/27/2017 07/28/2017 07/29/2017 heparin 25,000 units in dextrose 5% 500 mL infusion (CANCELED)(Linked Group 2) 0-5,000 Units/hr (0-100 mL/hr), Intravenous, CONTINUOUS, Starting on Wed07/20/17 at 1715, Until Wed07/27/17 at 1739, Begin infusion at 1,750 units per hr (15 units/kg/hr). MAX INITIAL infusion rate is 1,750 units/hr Target aPTT = 80 - 114 seconds Start adjustment schedule 6 hours after starting infusion. If aPTT is: - Less than 60 seconds, administer PRN bolus and increase rate by 450 units per hr (4 units/kg/hr) - 60-79 seconds, administer PRN bolus AND increase rate by 250 units per hr (2 units/kg/hr) - 80-114 seconds, no change - 115-129 seconds, decrease rate by 100 units per hr (1 unit/kg/hr) - 130-145 seconds, stop infusion for 30 minutes then decrease rate by 250 units per hr (2 units/kg/hr) - Greater than 145 seconds, stop infusion for 60 minutes then decrease rate by 350 units per hour (3 units/kg/hr) Repeat aPTT 6 hours after initiating heparin. Then 6 hours after each dose adjustment. When 2 consecutive aPTT within target range of 80 - 114 seconds, change aPTT to once every 24 hours with A.M. labs while on heparin. RN to order required aPTT - Per Protocol, Routine, Indication: Pulmonary Embolism 0322 (Rate/Dose Verify - Provider: Lorna Browne RN)0634 (New Bag - Provider: Lorna Browne RN)1605 (Stopped - Provider: Jeannie Stiles RN) PRN Medication Order 07/27/2017 07/28/2017 07/29/2017 albuterol 90 mcg/actuation inhaler 6 puff 6 puff, Inhalation, EVERY 4 HOURS PRN, Starting on Wed07/14/17 at 1621, Until Wed07/29/17 at 1535, Wheezing, Routine, Is there a contraindication to the patient receiving this medication as a nebulizer? Yes atropine injection 0.5 mg 0.5 mg, Intravenous, ONCE PRN, 1 dose, Starting on Wed07/17/17 at 2144, Until Wed07/29/17 at 1535, Other, for HR <40, please notify , Routine bisacodyl (DULCOLAX) suppository 10 mg 10 mg, Rectal, DAILY PRN, Starting on Wed07/13/17 at 2036, Until Shabana 07/29/17 at 1535, Constipation, if no BM in 48 hours or per patient's routine, Administer if needed per patient's routine or if no bowel movement within 48 hours to achieve: 1) One bowel movement at least every 48 hours, AND 2) Without straining. If multiple bowel medications ordered, consider adding bisacodyl if polyethylene glycol (MIRALAX) or sennosides (SENOKOT) not sufficient., Routine flu vacc (65 yrs+) (PF) (FLUZONE HD) IM injection 0.5 mL 0.5 mL, Intramuscular, PRIOR TO DISCHARGE, 1 dose, Starting on Wed07/28/17 at 1317, Until Shabana 07/29/17 at 1535, Per Protocol, Routine hydrALAZINE (APRESOLINE) injection 5 mg 5 mg, Intravenous, EVERY 4 HOURS PRN, Starting on 07/17/17 at 1009, Until Shabana 07/29/17 at 1535, High Blood Pressure meTOPROLOL (LOPRESSOR) injection 5 mg 5 mg, Intravenous, EVERY 5 MIN PRN, Starting on Wed07/19/17 at 1732, Until Shabana 07/29/17 at 1535, High Blood Pressure, Elevated Heart Rate, For afib HR greater than 110 polyethylene glycol (MIRALAX) packet 17 g 17 g, Per NG tube, DAILY PRN, Starting on Wed07/21/17 at 0845, Until Shabana 07/29/17 at 1535, Constipation, Routine potassium chloride (KAYCIEL) 20 mEq/15 mL oral solution 20-60 mEq 20-60 mEq, Per NG tube, EVERY 4 HOURS PRN, Starting on Wed07/19/17 at 0538, Until Shabana 07/29/17 at 1535, hypokalemia, For serum potassium: 3.9 - 4 mMol/L = 20 mEq. 3.6 - 3.8 mMol/L = 40 mEq. 3.3 - 3.5 mMol/L = 40 mEq. 2.8 - 3.2 mMol/L = 60 mEq. Less than 2.8 = Call physician, then begin potassium chloride replacement via central or peripheral IV route. See instructions for Potassium Protocol in online policies., Routine No Frequency Medication Order 07/27/2017 07/28/2017 07/29/2017 lidocaine (XYLOCAINE) 10 mg/mL (1 %) injection (COMPLETED) 1 dose, Starting on Wed07/27/17 at 0948, Until Wed07/27/17 at 1000, JV VALDEZ: cabinet override 1000 (Given - Provider: Jeannie Stiles RN) Linked Groups Order Group 1: pantoprazole (PROTONIX) tablet 40 mgJump to med 40 mg, Oral, DAILY, First dose on Wed07/14/17 at 0900, Until Discontinued, DO NOT CRUSH OR OPEN If unable to take PO, may give IV Or pantoprazole (PROTONIX) injection 40 mgJump to med 40 mg, Intravenous, DAILY, First dose on Wed07/14/17 at 0900, Until Discontinued, Reconstitute with 10 mL of normal saline to a concentration of 4 mg/mL and infuse slowly over 2 minutes. , Routine Group 2: heparin (porcine) injection 0-8,000 Units (CANCELED) 0-8,000 Units, Intravenous, BOLUS PER HEPARIN PROTOCOL, Starting on Wed07/20/17 at 1656, Until Wed07/27/17 at 1739, Per Protocol, START ADJUSTMENT SCHEDULE 6 HOURS AFTER STARTING INFUSION aPTT Between 60 - 79 seconds: Bolus 4,000 units aPTT Less than 60 seconds: Bolus 8,000 units Increase infusion and recheck aPTT in 6 hours. , Routine And heparin 25,000 units in dextrose 5% 500 mL infusion (CANCELED)Jump to med 0-5,000 Units/hr (0-100 mL/hr), Intravenous, CONTINUOUS, Starting on Wed07/20/17 at 1715, Until Wed07/27/17 at 1739, Begin infusion at 1,750 units per hr (15 units/kg/hr). MAX INITIAL infusion rate is 1,750 units/hr Target aPTT = 80 - 114 seconds Start adjustment schedule 6 hours after starting infusion. If aPTT is: - Less than 60 seconds, administer PRN bolus and increase rate by 450 units per hr (4 units/kg/hr) - 60-79 seconds, administer PRN bolus AND increase rate by 250 units per hr (2 units/kg/hr) - 80-114 seconds, no change - 115-129 seconds, decrease rate by 100 units per hr (1 unit/kg/hr) - 130-145 seconds, stop infusion for 30 minutes then decrease rate by 250 units per hr (2 units/kg/hr) - Greater than 145 seconds, stop infusion for 60 minutes then decrease rate by 350 units per hour (3 units/kg/hr) Repeat aPTT 6 hours after initiating heparin. Then 6 hours after each dose adjustment. When 2 consecutive aPTT within target range of 80 - 114 seconds, change aPTT to once every 24 hours with A.M. labs while on heparin. RN to order required aPTT - Per Protocol, Routine, Indication: Pulmonary Embolism documented in this encounter Care Teams Tunnel Worker Relationship Specialty Start Date End Date Jovon Sifuentes MD [address] [place] [address] PCP - General 09/30/10 09/10/21 documented as of this encounter
--- OUTSIDE RECORDS SUMMARY | 2024-05-18 11:32 | XMS_ITS | Encounter Summary ---
[place] [address] Care Team Providers Care Capacitor Assembler Name Role Phone Jovon Sifuentes MD Primary Care Provider [phone] Reason for Referral * Diagnostic Test (Routine) - Closed Specialty Diagnoses / Procedures Referred By Huma valladares Referred To Contact Radiology Diagnoses Cancer of base of tongue Procedures CT Neck Soft Tissue w Contrast (Generic) Sriram Contreras MD [facility] [place] [address] [facility] [place] [address] Referral ID Status Reason Start Date Expiration Date V isits Requested Visits Authorized [id number] Closed Specialty Service Requested 06/17/2017 06/17/2018 1 1 Reason for Visit * Auth/Cert Specialty Diagnoses / Procedures Referred By Huma valladares Referred To Contact Diagnoses Head and neck [...] Expiration Date Visits Re quested Visits Authorized [id number] 1 1 Encounter Details Date Type Department Care Team (Latest Contact Info) Description 07/13/2017 9:15 AM EDT - 07/13/2017 11:59 PM EDT Hospital Encounter Radiology at [facility] [place] [address] Cancer of base of tongue Discharge Disposition: [...] 2 times daily. 120 mL 07/29/2017 12/16/2017 CIALIS 10 mg Tablet 0 03/18/2017 07/29/2017 glucosamine sulfate 500 mg Tablet Take by mouth daily. 09/21/2 017 melatonin 5 mg Tablet Take by mouth nightly as needed. 04/14/2018 apixaban (ELIQUIS) 5 mg Tablet Take 5 mg by mouth 2 times daily. 07/29/2017 documented as of this encounter Plan of Treatment Upcoming Encounters Date Type Department Care Team (Late st Contact Info) Description 08/01/2024 1:00 PM EDT Office Visit Hematology/Oncology at [address] [phone] Dmitry Bhatti MD [facility] DR HEMATOLOGY/[place] [address] Ellen Mcrae APRN [facility] [place] [place] [address] 08/01/2024 1:30 PM EDT Infusion Hematology Oncology at [address] [phone] documented as of this encounter Procedures Procedure Name Priority Date/Time Associated Diagnosis Comments CT NECK SOFT TISSUE W CONTRAST Routine 07/13/2017 10:08 AM EDT Cancer of base of tongue documented in this encounter Results * CT Neck Soft Tissue w Contrast (Generic) (07/13/2017 10:08 AM EDT) Anatomical Region Laterality Modality Neck, Head Computed Tomogra phy Impressions 07/13/2017 11:[address] for intraoperative guidance. Increased extent of neoplasm as described above. Narrative 07/13/2017 11:13 AM EDT EXAMINATION: CT NECK SOFT TISSUE W CONTRAST (GENERIC) CLINICAL HISTORY: Intraoperative CT for navigation TECHNIQUE: CT acquired of the upper neck for intraoperative navigation after administration of intravenous contrast. COMPARISON: Neck CT 03/18/[address] 2016. FINDINGS: The right base of tongue mass now appears across midline and there is increased extent along the right lateral pharyngeal wall. Increased thickening and abnormal enhancement of the epiglottis. Artifact makes evaluation of the aryepiglottic folds limited. No lymphadenopathy within the partially imaged neck. Procedure Note Nahid Mcdonnell MD - 07/13/2017 EXAMINATION: CT NECK SOFT TISSUE W CONTRAST (GENERIC) CLINICAL HISTORY: Intraoperative CT for navigation TECHNIQUE: CT acquired of the upper neck for intraoperative navigation afteradministration of intravenous contrast. COMPARISON: Neck CT 03/18/[address] 2016. FINDINGS: The right base of tongue mass now appears across midline and there isincreased extent along the right lateral pharyngeal wall. Increased thickening and abnormal enhancement of the epiglottis. Artifact makes evaluation of the aryepiglottic folds limited. No lymphadenopathy within the partiallyimaged neck. IMPRESSION CT for intraoperative guidance. Increased extent of neoplasm as describedabove. 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 documented in this encounter Administered Medications Inactive Administered Medications - up to 3 most recent administrations Medication Order MAR Action Action Date Dose Rate Site iodixanol (VISIPAQUE) 320 mg iodine/mL injection 110 mL 110 mL, Intravenous, ONCE PRN, 1 dose, Starting on Wed07/13/17 at 1007, Until Wed07/13/17 at 1009, Per Protocol, Routine Given 07/13/2017 10:09 AM EDT 110 mLs documented in this encounter Care Teams Capacitor Assembler Relationship Specialty Start Date End Date Jovon Sifuentes MD [address] [place] [address] PCP - General 09/30/10 09/10/21 documented as of this encounter
--- OUTSIDE RECORDS SUMMARY | 2024-05-18 11:32 | XMS_ITS | Encounter Summary ---
Author Organization [facility] [address] Care Team Providers Care Software Engineer Sales Name Role Phone Jovon Sifuentes MD Primary Care Provider [phone] Reason for Visit * Auth/Cert Specialty Diagnoses [...] Expiration Date Visits Re quested Visits Authorized [id number] 1 1 Encounter Details Date Type Department Care Team (Late st Contact Info) Description 07/16/2017 10:58 AM EDT - 07/16/2017 1:17 PM EDT Surgery [place] [id number] [facility] [place] [address] LARYNGOSCOPY, WITH MICROSCOPE (WRVU 2.57) Social History Tobacco Use Types Packs/Day Years [...] Sign Reading Time Taken Comments Blood Pressure 136/58 07/15/2017 5:48 PM EDT Pulse 67 07/16/2017 1:00 PM EDT Temperature 37.7 ??C (99.9 ??F) 07/16/2017 1:00 PM ED T Respiratory Rate 18 07/16/2017 1:00 PM EDT Oxygen Saturation 91% 07/16/2017 1:00 PM EDT Inhaled Oxygen Concentration - - Weight 133.4 kg (294 lb) 07/13/2017 6:28 AM EDT Height 191.8 cm (6' 3.5) 07/13/2017 6:28 AM EDT Body Mass Index 34.77 07/17/2017 10:00 PM EDT documented in this encounter Discharge Summaries * Celso Mejía MD - 07/29/2017 9:32 AM EDT OTOLARYNGOLOGY - HEAD & NECK SURGERY DISCHARGE SUMMARY General Info Patient Name: Jose Bee Patient Age: 66 y.o. Birthdate: 1950 Admit [...] bilateral cervical nodes: Reason for Admission: Jose Bee??is a 66 y.o.??male??presented with exophytic tumor T2N0M0 [...] staging exam TECHNIQUE: Following IV injection of 00-rwdgpe-4-deoxyglucose (FDG) a standard uptake of approximately 60 [...] Thank you for referring this patient to [facility]. I have personally reviewed the image(s) and the residents interpretation and agree with the findings, Lizy Padgett at 06/17/2017 3:54 PM Xr Chest Pa [...] -You can reach the ENT clinic at [phone] for appointment questions. -The ENT triage nurse is available at [phone] -For urgent issues during evenings and weekends the ENT resident technical sales consultant can be reached through [facility] waste disposal plant operator at [phone] Follow Up: You will need to follow [...] Geovanna Deleon MD Hematology and Oncology at [facility] [phone] General Instructions None __ Primary Care Doctor: Jovon Sifuentes MD [phone] Signed: Celso Mejía MD 07/29/2017 documented in [...] -You can reach the ENT clinic at [phone] for appointment questions. -The ENT triage nurse is available at [phone] -For urgent issues during evenings and weekends the ENT resident technical sales consultant can be reached through [facility] waste disposal plant operator at [phone] Follow Up: You will need to follow [...] Geovanna Deleon MD Hematology and Oncology at [facility] [phone] documented in this encounter Medications at Time [...] 07/29/2017 1:35 PM EDT Patient Name: Jose Bee Patient Age: 66 y.o. Birthdate: 1950 Admit date: 07/13/2017 Attending Physician: No att. providers found Jose Bee discharged to [facility] by private car with Spouse. All belongings sent with patient. DONNA removed, incision healing well, no significant drainage, no dehiscence, no significant erythema, skin free from pressure ulcers. Discharge instructions given to . Report called to Vidhi at [facility] @ 1340. * Alexus Soler RN - 07/29/2017 11:38 AM EDT Patient accepts bed at [facility]. Spoke with Patient and in regards to transportation. will provide transportation to [facility]. Adrienne Soler RN Care Management * Lexy Scott - 07/29/2017 10:57 AM EDT Office of Care Management/Fashion Supervisor Patient Name: Jose Bee : 1950 Patient has been offered a Long-Term Facility bed at [facility]. The patient will be transported by private transportation. No MD to MD report necessary Please call Nursing Report to , ask for Vidhi. Info to accompany patient: Narcotic Prescriptions Copies of Medication Administration Records and IV sheets for past 10 days. Plan: Fashion Supervisor will be available to the patient and Taxi Servicer-RN and/or Social Workerfor further assistance. Patient will be discharged to: [facility] [address] [facility] [address] [place] [address] Lexy M Snow, Fashion Supervisor * Luana Henry RN - 07/29/2017 7:00 AM EDT Patient arrived via bed to rm 514, oob sitting in chair. Aox4, calling . Denies pain. Plan for discharge today pending bed. 1 assist to bathroom. Voids with out difficulty. [place] to floor and call srinivasan system. Would like to take a shower and have his CPAP cleaned. Will report to oncoming RN/CONCEPCION. * Kayley Chris RCP - 07/29/2017 4:40 AM EDT Patient was compliant with home CPAP usage tonight. * Anay Diallo RN - 07/28/2017 3:40 PM EDT Taxi Servicer Follow Up Note Patient plan of care discussed in multidisciplinary rounds. Met with patient and to assess continuing care and discharge needs. Continues to require hospitalization for Head and neck cancer. Discharge plan to snf when medically ready. Taxi Servicer to follow with team and family to assist with discharge needs when patient ready for discharge. Anay Diallo RN Case Management for [facility] pgr [phone] * Celso Mejía MD - 07/28/2017 7:04 AM EDT OTOLARYNGOLOGY - HEAD & NECK SURGERY DAILY PROGRESS NOTE Name: Jose Bee Age/Sex: 66 y.o. male Attending: Sriram Contreras MD Hospital Day: 16 12 Days Post-Op Patient ID/Reason for Admission Jose Bee??is a 66 y.o.??male??presented with exophytic tumor T2N0M0 [...] database for comparison. ASSESSMENT & PLAN Jose Bee??is a 66 y.o.??male??presented with exophytic tumor T2N0M0 [...] Mejía MD, PGY1 07/28/17 7:05 AM Pager: [phone] * Anay Diallo RN - 07/27/2017 2:44 PM EDT Based on discussions with the multi-disciplinary healthcare team, the patient would benefit from skilled level of care at discharge. ?? I have met with the patient/technical sales representatives to discuss discharge planning needs. I have provided the [facility], Office of Care Management letter from the Mud Tank Operator pertaining to rehab referrals. I have also provided a letter describing our affiliations within the [facility] and educated them about their right to choose where referrals are placed. ?? I reviewed the different levels of rehab including SNF, swing, acute and LTAC with the patient/technical sales representatives. ?? The patient/technical sales representatives has been provided a list of facilities within their preferred geographic area. ?? I have requested that the patient/technical sales representatives provide at least three choices for referral. ?? The patient/technical sales representatives have requested referrals to: 1. [facility] ?? PHONE: [phone] FAX: [phone].. 2. [facility] [address] [place] [address] ?? 3. [facility] [address] [place] [address] ? Expected date of discharge: TBD Note routed to Fashion Supervisor who will communicate referrals to facilities and [...] NECK SURGERY DAILY PROGRESS NOTE Name: Jose Bee Age/Sex: 66 y.o. male Attending: Sriram Contreras MD Hospital Day: 15 11 Days Post-Op Patient ID/Reason for Admission Jose Bee??is a 66 y.o.??male??presented with exophytic tumor T2N0M0 [...] of this interpretation ASSESSMENT & PLAN Jose Bee??is a 66 y.o.??male??presented with exophytic tumor T2N0M0 [...] Mejía MD, PGY1 07/27/17 7:01 AM Pager: [phone] * Collette Schultz - 07/26/2017 8:21 PM EDT Zach Encounter Note Patient Name: Jose Bee : [id number] MR#: [id number] Admit Date: 07/13/2017 6:04 AM Hospital Day 13 days Narrative: Attempted return visit - pt sleeping. Time in Direct Care: 0 min. Collette Schultz 07/26/2017 * Collette Schultz - 07/26/2017 3:00 PM EDT Zach Encounter Note Patient Name: Jose Bee : [id number] MR#: [id number] Admit Date: 07/13/2017 6:04 AM Hospital Day 13 days Narrative: Law Office Manager visit per Consult Order Assessment: Pt spoke [...] Diallo RN - 07/26/2017 2:30 PM EDT Taxi Servicer Follow Up Note Patient plan of care discussed in multidisciplinary rounds. Met with patient to assess continuing care and discharge needs. Continues to require hospitalization for Head and neck cancer. Discharge plan uncertain at this time. Taxi Servicer to follow with team and family to assist with discharge needs when patient ready for discharge. Anay Diallo RN Case Management for [facility] pgr [phone] * Briana Goel RN - 07/26/2017 2:29 PM EDT [facility] Interventional Radiology ? Interventional Radiology Nursing and/or [...] patient's provider, ENT Service Dr. Jackie Mejía #[phone] , regarding above. Paged, callback # provided after signing this note. Spoke to provider on the phone. Orders pended for both continuous and bolus recs; provider to check in with team for which rec would like to be implemented. Jose Bee is a 66 y.o. male Principal Problem: [...] lb 2.5 oz). Admit Wt: 133.36 kg Perry body weight: 90.4 kg Type of access: [...] vitamins and minerals. Assessment: Estimated Nutrition Needs: 1267-1863 calories (20-25 kcal/kg IBW) 135-160 grams protein (1.5-2.0 g/kg IBW) Patient is out of the ICU and out on the floor. Tube feedings need adjustment as pt is no longer onpropofol. Appears tube feedings are still medically indicated given pt is s/p swallow eval and CONTACT ACID PLANT OPERATOR recommends continuation of dobhoff TF for now. KATHY Mosqueda * Celso Mejía MD - 07/26/2017 9:00 AM EDT OTOLARYNGOLOGY - HEAD & NECK SURGERY DAILY PROGRESS NOTE Name: Jose Bee Age/Sex: 66 y.o. 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 -On heparin gtt for PE at 2500 units/hr. -On zosyn for PNA, day 6/7. Vitals Last value 24hr Range Temperature: 36.6 [...] of this interpretation ASSESSMENT & PLAN Jose Bee??is a 66 y.o.??male??presented with exophytic tumor T2N0M0 [...] Mejía MD, PGY1 07/26/17 9:01 AM Pager: [phone] * Calista Peralta RT - 07/26/2017 12:27 AM EDT Patient wore Home NIV unit overnight with no issues. SPO2 93%. Will continue to assess and assist with NIV usage nightly. * Ignacio Regan P - 07/25/2017 9:59 AM EDT OTOLARYNGOLOGY - HEAD & NECK SURGERY DAILY PROGRESS NOTE Name: Jose Bee Age/Sex: 66 y.o. male Attending: Sriram Contreras MD Hospital Day: 13 9 Days Post-Op Patient ID/Reason for Admission Jose Bee is a 66 y.o. male presented with [...] this interpretation ?? ASSESSMENT & PLAN Jose Bee is a 66 y.o. male presented with [...] 7.44 7.41 7.42 PO2ART 67* 60* 78* ZCB4EDG 39 37 39 BEART 1.2 -2.0 0.3 [...] 7.44 7.41 7.42 PO2ART 67* 60* 78* XVH8COS 39 37 39 BEART 1.2 -2.0 0.3 [...] NECK SURGERY DAILY PROGRESS NOTE Name: Jose Bee Age/Sex: 66 y.o. male Attending: Sriram Contreras MD Hospital Day: 12 8 Days Post-Op Patient ID/Reason for Admission Jose Bee is a 66 y.o. male presented with [...] Intake/Output Summary (Last 24 hours) at 07/24/17 09 Last data filed at 07/24/17 0813 Gross [...] this interpretation ?? ASSESSMENT & PLAN Jose Bee is a 66 y.o. male presented with [...] ENT with Dr. Contreras TBD __ IGNACIO Litzy REGAN MD 07/24/17 9:27 AM Associated attestation - Samm Payne MD - 07/25/2017 6:54 AM EDT Otolaryngology Attending Physician Addendum Patient discussed at length and in detail with Dr. Regan. I have reviewed, and agree with, the clinical history, physical examination findings, impression, and plan, as detailed in resident physician's note. Samm Payne MD, FAAP Pediatric Otolaryngology [facility] * Beena Saini RCP - 07/24/2017 4:28 [...] level as previously suggested Monitor weight. Jose Bee is a 66 y.o. male Principal Problem: Head and neck cancer Active Problems: Pulmonary embolism Overview: Recurrent. Atrial fibrillation Overview: March 2017: noted in ED in [facility] Previously noted to be paroxysmal. No awareness. [...] 07/23/2017 3:50 PM EDT Office of Care Management(OCM)/Taxi Servicer(CM) Service: ENT Pt remains intubated at this [...] get appropriate choices after recs are made. Taxi Servicer Roc Valdez RN, BSN Pager #[phone] * Sony Oliva MD - 07/23/2017 11:31 AM EDT Critical Care Medicine Staff Inpatient Progress Note Author: Sony Oliva MD Patient seen and examined on critical care rounds. Jose Bee is a 66 y.o. male with the [...] 07/23/2017 No results found for: PHART, PO2ART, SER5YLR ASSESSMENT, MANAGEMENT, and DECISION MAKING: potential for [...] LEAST ONE OF THESE DX to USE 59753 ARDS Stupor Hypoxemic Resp Failure (Fi02>50%) Delirium [...] NECK SURGERY DAILY PROGRESS NOTE Name: Jose Bee Age/Sex: 66 y.o. male Attending: Sriram Contreras MD Hospital Day: 11 7 Days Post-Op Patient ID/Reason for Admission Jose Bee is a 66 y.o. male presented with [...] this interpretation ?? ASSESSMENT & PLAN Jose Bee is a 66 y.o. male presented with [...] cm at the Teeth. Skin Integrity: WDL MDQamar Inhaled Medications: Albuterol Prn Breath Sounds: rhonchi Secretions: large/hdez/thick Assessment / Events / Plan of the Day: ABG at 0827 on 40% O2: 7.42/39/78/25/0. Provide MV per AMV protocol and conduct SBT per protocol. * Sony Oliva MD - 07/22/2017 12:02 PM EDT Critical Care Medicine Staff Inpatient Progress Note Author: Sony Oliva MD Patient seen and examined on critical care rounds. Jose Bee is a 66 y.o. male with the [...] LEAST ONE OF THESE DX to USE 22578 ARDS Stupor Hypoxemic Resp Failure (Fi02>50%) Delirium [...] NECK SURGERY DAILY PROGRESS NOTE Name: Jose Bee Age/Sex: 66 y.o. male Attending: Sriram Contreras MD Hospital Day: 10 6 Days Post-Op Patient ID/Reason for Admission Jose Bee is a 66 y.o. male presented with [...] this interpretation ?? ASSESSMENT & PLAN Jose Bee is a 66 y.o. male presented with [...] to reach the patient's provider, Red [phone], regarding above. Monitor weight. Jose Bee is a 66 y.o. male Principal Problem: Head and neck cancer Active Problems: Pulmonary embolism Overview: Recurrent. Atrial fibrillation Overview: March 2017: noted in ED in [facility]. Previously noted to be paroxysmal. No awareness. [...] and examined on critical care rounds. Jose Bee is a 66 y.o. male with the [...] LEAST ONE OF THESE DX to USE 78040 ARDS Stupor Hypoxemic Resp Failure (Fi02>50%) Delirium [...] NECK SURGERY DAILY PROGRESS NOTE Name: Jose Bee Age/Sex: 66 y.o. male Attending: Sriram Contreras MD Hospital Day: 9 5 Days Post-Op Patient ID/Reason for Admission Jose Bee is a 66 y.o. male presented with [...] this interpretation ?? ASSESSMENT & PLAN Jose Bee is a 66 y.o. male presented with [...] NECK SURGERY DAILY PROGRESS NOTE Name: Jose Bee Age/Sex: 66 y.o. male Attending: Sriram Contreras MD Hospital Day: 8 4 Days Post-Op Patient ID/Reason for Admission Jose Bee is a 66 y.o. male presented with [...] described above. ?? ASSESSMENT & PLAN Jose Bee is a 66 y.o. male presented with [...] Investigate with repeat chest x-ray Gastrointestinal: Miralax SHIRA, Bisacodyl suppository PRN for [...] PGY2 07/20/17 7:21 AM * Kaiden Gorman, [facility] - 07/20/2017 4:35 AM EDT AMV Protocol: [...] and examined on critical care rounds. Jose Bee is a 66 y.o. male with the [...] LEAST ONE OF THESE DX to USE 95131 ARDS Stupor Hypoxemic Resp Failure (Fi02>50%) Delirium [...] NECK SURGERY DAILY PROGRESS NOTE Name: Jose Bee Age/Sex: 66 y.o. male Attending: Sriram Contreras MD Hospital Day: 7 3 Days Post-Op Patient ID/Reason for Admission Jose Bee is a 66 y.o. male presented with [...] described above. ?? ASSESSMENT & PLAN Jose Bee is a 66 y.o. male presented with [...] 95 % Resp: 20 ABG: @ 17:22 7./25.9 MDI Inhaled Medications: Albuterol PRN Lung Sounds: Clear Assessment: Received pt on HFNC 40 LPM 60% FiO2. Pt titrated to 40% FiO2 throughout shift and tolerating well. Pt has good productive cough. Increased FiO2 to 50% after ABG @ 17:22 . Plan: Continue to titrate FiO2 as tolerated [...] 1250 07/17/17 0030 07/16/17 0400 07/15/17 1020 07/14/17201907/14/17 1630 07/14/17 0036 07/13/17 2133 07/13/17 1256 [...] this interval not displayed. CBC Recent Labs 07/18/17 02207/17/17 0030 07/16/17 0400 07/15/17 0415 07/14/17 0036 [...] NECK SURGERY DAILY PROGRESS NOTE Name: Jose Bee Age/Sex: 66 y.o. male Attending: Sriram Contreras MD Hospital Day: 6 2 Days Post-Op Patient ID/Reason for Admission Jose Bee is a 66 y.o. male presented with [...] described above. ?? ASSESSMENT & PLAN Jose Bee is a 66 y.o. male presented with [...] TBD; Follow-up ENT with Dr. Ben GREWAL __ Efrem Dale Jr, MD, PGY2 07/18/17 9:41 AM Associated attestation - Lakeshia Mckeon MD - 07/22/2017 8:18 AM EDT Agree with above. Patient seen and examined by myself along with Dr. Dale and I agree with the assessment and plan. Lakeshia Mckeon MD * Jeannie Jewell, [facility] - 07/17/2017 7:24 PM EDT 07/17/17 1923 Oxygen Therapy Patient Type Adult O2 Device [...] NECK SURGERY DAILY PROGRESS NOTE Name: Jose Bee Age/Sex: 66 y.o. male Attending: Sriram Contreras MD Hospital Day: 5 1 Day Post-Op Patient ID/Reason for Admission Jose Bee is a 66 y.o. male presented with [...] described above. ?? ASSESSMENT & PLAN Jose Bee is a 66 y.o. male presented with [...] Jr, MD, PGY2 07/17/17 8:21 PM Pager: [phone] (For daytime 6AM - 6PM) Please contact on-call night ENT data analysis intern for issues between 6PM - 6AM * Miguelina Puente, RT - 07/17/2017 10:56 AM EDT Pt [...] the need arise fora surgical airway. - [facility] vent protocol - HOB 30 degrees [...] kg (294 lb). Admit Weight: 133.36 kg Perry Body Weight: 90.3 kg I/O last 1 [...] service. Nutrition to follow. * Lillian Pardo, CONTACT ACID PLANT OPERATOR - 07/16/2017 1:48 PM EDT Speech-Language Pathology Initial Consult ?? Order received and acknowledged. Records reviewed and pt and RN contacted. Pt remains intubated at this time. Assessment deferred at this time. Please re- consult after pt successfully extubated. ?? Lillian Pardo MA CCC-CONTACT ACID PLANT OPERATOR Inpatient Rehabilitation Medicine pager:# [phone] * Salazar Bhagat MD - 07/16/2017 11:57 [...] need arise for a surgical airway. - [facility] vent protocol - HOB 30 degrees [...] NECK SURGERY DAILY PROGRESS NOTE Name: Jose Bee Age/Sex: 66 y.o. male Attending: Sriram Contreras MD Hospital Day: 4 3 Days Post-Op Patient ID/Reason for Admission Jose Bee is a 66 y.o. male presented with [...] Labs 07/16/17 0400 07/15/17 1020 07/15/17 0415 07/14/17201907/14/17 1630 07/14/17 0036 WBC 10.2* -- 14.6* [...] described above. ?? ASSESSMENT & PLAN Jose Bee is a 66 y.o. male presented with [...] Martino MD, PGY1 07/16/17 9:12 AM Pager: [phone] (For daytime 6AM - 6PM) Please contact on-call night ENT data analysis intern for issues between 6PM - 6AM * Supa Sharif, HIGH DENSITY PRESS OPERATOR - 07/15/2017 8:15 PM EDT AMV Protocol: [...] need arise for a surgical airway. - [facility] vent protocol - Dexamethasone x3 doses [...] NECK SURGERY DAILY PROGRESS NOTE Name: Jose Bee Age/Sex: 66 y.o. male Attending: Sriram Contreras MD Hospital Day: 3 2 Days Post-Op Patient ID/Reason for Admission Jose Bee is a 66 y.o. 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 Interval History Ventilated on PEEP 5, PSV 5, FiO2 21% Some sinus jay overnight. Tube feeds on board starting yesterday. [...] and sedated Labs Recent Labs 07/15/17 0415 07/14/17 2020 07/14/17 1630 07/14/17 0036 07/13/17 2133 WBC 14.6* [...] described above. ?? ASSESSMENT & PLAN Jose Bee is a 66 y.o. male presented with [...] Martino MD, PGY1 07/15/17 7:06 AM Pager: [phone] (For daytime 6AM - 6PM) Please contact on-call night ENT data analysis intern for issues between 6PM - 6AM * Supa Sharif, [facility] - 07/14/2017 9:40 PM EDT AMV Protocol: [...] ?? Pulm: nasally intubated, difficult airway - [facility] vent protocol - Dexamethasone x3 doses [...] MD 07/14/2017 6:47 PM * Adam Montana, [facility] - 07/14/2017 2:03 PM EDT AMV Protocol: [...] NECK SURGERY DAILY PROGRESS NOTE Name: Jose Bee Age/Sex: 66 y.o. male Attending: Sriram Contreras MD Hospital Day: 2 1 Day Post-Op Patient ID/Reason for Admission Jose Bee is a 66 y.o. male presented with [...] described above. ?? ASSESSMENT & PLAN Jose Bee is a 66 y.o. male presented with [...] Martino MD, PGY1 07/14/17 9:38 AM Pager: [phone] (For daytime 6AM - 6PM) Please contact on-call night ENT data analysis intern for issues between 6PM - 6AM [...] of this encounter: 133.4 kg (294 lb). Perry Body Weight: 90.3 kg I/O last 1 [...] service. Nutrition to follow. * Cecilia Doll, [place] - 07/14/2017 5:36 AM EDT Mechanical Ventilation Note Vent Settings: Pressure Support 5 PEEP 5 FIO2 0.4 ETT: Left Nare placed at: 28 cm at the nare Changes made this shift: transitioned to pressure support 5 PEEP 5 FIO2 0.4 SBT Protocol: Yes Pass SBT: Yes AMV Protocol: Yes Assessment: ETT secured via suture. Of note, the pilot boat captain balloon line is wrapped up in the [...] NECK SURGERY POST OP CHECK Name: Jose Bee Age/Sex: 66 y.o. male Attending: Sriram Contreras MD Hospital Day: 1 Day of Surgery Patient ID/Reason for Admission Jose Bee is a 66 y.o. male presented with [...] Imaging No post-imaging ASSESSMENT & PLAN Jose Bee is a 66 y.o. male s/p Procedure(s): [...] ICU/CRITICAL CARE ADMISSION NOTE Patient Name: Jose Bee Patient Age: 66 y.o. Birthdate: 1950 Admit date: 07/13/2017 Attending Physician: Sriram Contreras MD History of Present Illness: Jose Bee is a 66 y.o. male with PMH [...] Date ??? ACHILLES TENDON SURGERY Right 1996 [facility] ??? KNEE ARTHROSCOPY christelle. [facility] ??? PRO BIOPSY OROPHARYNX N/A 05/24/2017 BIOPSY, OROPHARYNX (WRVU 1.44) performed by Zafar Madera MD at [facility] MAIN OR ??? PRO LARYNGOSCOPY, DIRCT, OP SCOPE, BIOPSY N/A 05/24/2017 LARYNGOSCOPY, MICROSCOPE, WITH BIOPSY (WRVU 3.55) performed by Zafar Madera MD at [facility] MAIN OR ??? QUADRACEPS TENDON REPAIR Right 04/2016 [facility] ??? TONSILLECTOMY Allergies: Allergies Allergen Reactions ??? [...] education: 17 Occupational History ??? 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 He is to Briana for 40 yrs. 4 children - All live in different states - [place] Enjoys raising Beef Cattle and doing Civil War and Living History and shoot Black powder/Antique firearms. He enjoys builiding Firearms/Blacksmithing - Charcoal, [employer], etc. Review of Systems: Not obtained due [...] 04/30/17 TTE - EF 60% Assessment Jose Bee is a 66 y.o. male s/p radical neck dissection with pharyngectomy and partial glossectomy (07/13/2017) for base of tongue cancer. He is admitted to the ICU post-operatively nasally intubated and sedated. Primary Service: ENT Plan: Neuro: - pain: tylenol, fentanyl gtt - sedation: propofol gtt CV: PMH Afib - currently stable Pulm: nasally intubated - [facility] vent protocol GI: DHT - Diet: [...] - 07/13/2017 7:37 AM EDT Patient Name: Jose Bee Patient Age: 66 y.o. Birthdate: 1950 Admit [...] this case performed under IRB Protocol Study [id number] (Improving throat cancer surgical outcomes through intra-operative [...] to the planned procedure. Hand Hygiene: The fire protection equipment technician did perform hand hygiene prior to arterial [...] procedure described above. Avery Camarillo MD * Hedy Cat - 07/19/2017 5:51 PM EDTAssociated Order(s): INTUBATION Intubation Procedure Note Reason for Intubation: ?? Hypoxemia. Procedure Diagnosis: hypoxic respiratory failure Location of Procedure: ICU [facility]. Risks and Benefits: The risks and [...] * Plan of Care - Sriram Thompson CONTACT ACID PLANT OPERATOR - 07/29/2017 9:56 AM EDT Problem: Patient [...] RECOMMENDATIONS: ?? Continue dysphagia soft diet and Parchment-thick liquids. ?? Upright to feed. ?? Small bites/sips. ?? Medications crushed in applesauce. Sriram Thompson MS [facility]-CONTACT ACID PLANT OPERATOR Speech-Language Pathologist Rehabilitation Medicine Pager - [phone] Problem: Acute Rehab Services Goal & Intervention [...] 2 Pertinent History of Current Problem: Jose Bee is a 66 y.o. male presented with [...] Anticipated Discharge Disposition: inpatient rehabilitation facility Pager: [phone] OTONIEL JOSHUA OT 07/28/2017 Occupational Therapy Rehabilitation [...] * Plan of Care - Sriram Thompson, CONTACT ACID PLANT OPERATOR - 07/28/2017 2:18 PM EDT Problem: Patient [...] documentation. RECOMMENDATIONS: ?? Dysphagia soft diet and Parchment-thick liquids. ?? Upright to feed. ?? Small bites / sips. ?? Crush medications in applesauce when possible. Sriram Thompson MS [facility]-CONTACT ACID PLANT OPERATOR Speech-Language Pathologist Rehabilitation Medicine Pager - [phone] Problem: Acute Rehab Services Goal & Intervention Plan Goal: Dysphagia Goal Stand Alone Therapy Goal Outcome: Ongoing (Interventions Implemented as Appropriate) 07/26/1793007/28/17 1413 Dysphagia Goal Dysphagia Goal, Date Established [...] PO intake. Awaiting plan for D/C to correction facility. INDIVIDUALIZED FALL PREVENTION INTERVENTIONS: Patient-specific fall [...] Number: 2 Pertinent History of Current Problem: Jsoe Bee is a 66 y.o. male presented with [...] Anticipated Discharge Disposition: inpatient rehabilitation facility Pager: [phone] CRISTIAN NELSON, PT 07/27/2017 Physical Therapy Rehabilitation [...] sit/sit to supine -- Bed Mobility Goal, Maple Level independent -- Bed Mobility Goal, Outcome Achieved -- goal ongoing Goal: Gait Training Goal Stand Alone Therapy Goal Outcome: Ongoing (Interventions Implemented as Appropriate) 07/26/17 1329 07/27/17 1230 Gait Training Goal Gait Training Goal, Date Established 07/26/17 -- Gait Training Goal, Time to Achieve 30 days -- Gait Training Goal, Maple Level supervision required -- Gait Training Goal, [...] days -- Transfer Training Goal, Activity Type uvk-li-mmfqu/innav-jo-ppm;vcv-wt-gxdvc/imrzu-tb-dga -- Transfer Train Goal, Maple Level supervision required -- Transfer Training Goal, Assist Device walker, rolling -- Transfer Training Goal, Outcome -- goal ongoing * Plan of Care - Sriram Thompson, CONTACT ACID PLANT OPERATOR - 07/27/2017 10:59 AM EDT Problem: Patient [...] Crush medications in applesauce. Sriram Thompson MS [facility]-CONTACT ACID PLANT OPERATOR Speech-Language Pathologist Rehabilitation Medicine Pager - [phone] Problem: Acute Rehab Services Goal & Intervention [...] PLAN MOVING FORWARD: -PEG tube. -IV abx -CONTACT ACID PLANT OPERATOR consult. -hep gtt. INDIVIDUALIZED FALL PREVENTION INTERVENTIONS: [...] (CPG) Outcome: Ongoing (Interventions Implemented as Appropriate) 07/23/178 07/26/17 1826 Pain, Acute Related Risk Factors [...] Pt appeared anxious and frustrated this morning. Law Office Manager consulted and talked with patient today. During a transfer to the [facility] it was determinedthat tube feeding was leaking [...] Mutuality Outcome: Ongoing (Interventions Implemented as Appropriate) 07/26/17 182 Individualization Patient Specific Goals To get out [...] Evaluation Pertinent History of Current Problem: Jose Bee is a 66 y.o. male presented with [...] to associated flowsheet data for details. Jose Bee presents with activity limitations and/or participation restrictions [...] Anticipated Discharge Disposition: inpatient rehabilitation facility Pager: [phone] OTONIEL JOSHUA OT 07/26/2017 Occupational Therapy Rehabilitation [...] Evaluation Pertinent History of Current Problem: Jose Bee is a 66 y.o. male presented with [...] Anticipated Discharge Disposition: inpatient rehabilitation facility Pager: [phone] CRISTIAN NELSON, PT 07/26/2017 Physical Therapy Rehabilitation [...] to sit/sit to supine Bed Mobility Goal, Maple Level independent Goal: Gait Training Goal Stand Alone Therapy Goal Outcome: Ongoing (Interventions Implemented as Appropriate) 07/26/17 1329 Gait Training Goal Gait Training Goal, Date Established 07/26/17 Gait Training Goal, Time to Achieve 30 days Gait Training Goal, Maple Level supervision required Gait Training Goal, Assist [...] 30 days Transfer Training Goal, Activity Type qtj-hc-tnung/ggist-ah-yaj;rhp-vf-wrkww/wiixs-ab-bod Transfer Train Goal, Maple Level supervision required Transfer Training Goal, Assist Device walker, rolling * Consult Note - Deanna Menjivar MD - 07/26/2017 11:08 AM EDT INITIAL HEME/ ONC CONSULT DATE OF CONSULT 07/26/2017 PATIENT Jose Bee 1950 REFERRING PHYSICIAN SRIRAM CONTRERAS CONSULTATION QUESTION Recommendations for anticoagulation leaving the hospital HISTORY PRESENT ILLNESS This patient is a 66 y.o. male with a relevant past medical history significant for oropharyngeal cancer, malignancy associated VTE and Afib (CHADS-VASc of 1) who presented to [facility] for radical neck [...] Date ??? ACHILLES TENDON SURGERY Right 1996 [facility] ??? KNEE ARTHROSCOPY [facility]elle. [facility] ??? PRO BIOPSY OROPHARYNX N/A 05/24/2017 BIOPSY, OROPHARYNX (WRVU 1.44) performed by Zafar Madera MD at [facility] OR ??? PRO LARYNGOSCOPY, DIRCT, OP SCOPE, BIOPSY N/A 05/24/2017 LARYNGOSCOPY, MICROSCOPE, WITH BIOPSY (WRVU 3.55) performed by Zafar Madera MD at [facility] OR ??? PRO LARYNGOSCOPY, DIRECT, DX, OP MICROSCOP N/A 07/16/2017 LARYNGOSCOPY, WITH MICROSCOPE (WRVU 2.57) performed by Sriram Contreras MD at [facility] OR ??? PRO PART EXC TONGUE, UNILAT RAD NECK Right 07/13/2017 @GLOSSECTOMY, PARTIAL,WITH UNILATERAL RADICAL NECK DISSECTION (WRVU 30.14) performed by Sriram Contreras MD at [facility] ??? PRO PARTIAL REMOVAL OF PHARYNX N/A 07/13/2017 PHARYNGECTOMY, LIMITED (WRVU 19.13) performed by Sriram Contreras MD at [facility] ??? PRO UNLISTED PROCEDURE LARYNX N/A 07/13/2017 LARYNGOSCOPY, MICRO, LASER EXCISION (WRVU 12.14) performed by Sriram Contreras MD at [facility] ??? QUADRACEPS TENDON REPAIR Right 04/2016 [facility] ??? TONSILLECTOMY FAMILY HISTORY No family history on file. No family history of VTE SOCIAL HISTORY Social History Social History ??? Marital status: Spouse name: Briana ??? Number of children: 4 ??? 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 He is to Briana for 40 yrs. 4 children - All live in different states - One Kathleen Enjoys raising Beef Cattle and doing Civil War and Living History and shoot Black powder/Antique firearms. He enjoys builiding Firearms/Blacksmithing - [employer]coal, [place], etc. PHYSICAL EXAMINATION Most Recent Vitals: 07/26/17 [...] and thrombosis clinic Felice Harvey MD Pager [phone] Heme-Onc Fellow ?? HEMATOLOGY STAFF ADDENDUM I [...] outlined and have madeany additions/corrections below. Mr. Bee was diagnosed with his first VTE (right [...] Deanna Menjivar MD Hematology Staff physician, Pager: [phone] 07/26/17 * Plan of Care - Sriram Thompson, CONTACT ACID PLANT OPERATOR - 07/26/2017 9:33 AM EDT Problem: Patient [...] degrees at all times. Sriram Thompson MS [facility]-CONTACT ACID PLANT OPERATOR Speech-Language Pathologist Rehabilitation Medicine Pager - [phone] Problem: Acute Rehab Services Goal & Intervention Plan Goal: Dysphagia Goal Stand Alone Therapy Goal Outcome: Ongoing (Interventions Implemented as Appropriate) 07/26/17930 Dysphagia Goal Dysphagia Goal, Date Established 07/26/17 [...] Mutuality Outcome: Ongoing (Interventions Implemented as Appropriate) 07/26/17 08 Individualization Patient Specific Preferences I want to get up. I need to get up Can I have pie? I have not eatenin weeks Goal: Fall Prevention-Safe Patient Handling Outcome: Ongoing (Interventions Implemented as Appropriate) 07/26/17 08 Restraint Interventions Safety Promotion/Fall Prevention fall prevention [...] EVALUATION NOTE: OUTCOME SUMMARY: Patient Mr. Jose Bee was transferred from the ICU to [facility] at approximately 1430 on 07/25/17. At the [...] Outcome: Ongoing (Interventions Implemented as Appropriate) 07/25/17 0807/25/17 1400 07/25/17 1500 Bradford Fall Risk History [...] per order. PLAN MOVING FORWARD: Transfer to [facility] INDIVIDUALIZED FALL PREVENTION INTERVENTIONS: Patient-specific fall risk [...] Outcome (s) achieved Date Met: 07/25/17 07/25/17 0517 Confusion, Acute (Adult) Safety achieves outcome * [...] am. PLAN MOVING FORWARD: Extubate, transfer to [facility] when able INDIVIDUALIZED FALL PREVENTION INTERVENTIONS: Patient-specific [...] Overview Goal: Plan of Care Review 07/23/17 1649 Coping/Psychosocial Plan Of Care Reviewed With patient [...] Outcome: Ongoing (Interventions Implemented as Appropriate) 07/15/17 4164 Skin Integrity Impairment, Risk/Actual Skin Integrity Impairment, [...] MOVING FORWARD: Extubate this am, transfer to [facility] when able INDIVIDUALIZED FALL PREVENTION INTERVENTIONS: Patient-specific [...] OUTCOME EVALUATION: * Plan of Care - [place], Suzie A, RN - 07/18/2017 7:03 PM EDT Problem: [...] RN or CONCEPCION Surveillance [continuous indirect monitoring]: Ashley ICU monitor Patient-specific fall prevention interventions for [...] OUTCOME EVALUATION: * Plan of Care - Lien Geller RN - 07/16/2017 6:02 PM EDT [...] Contreras MD - 07/16/2017 12:27 PM EDT [facility] Operative Note Patient Name: Jose Bee : [id number] MR#: [id number] Case Date: 07/16/2017 Surgeon: Surgeon(s) and Role: [...] pertinent to this patient.) HPI/Surgical Indications: Mr. Bee presents to the OR today for direct [...] as Appropriate) 07/15/171843 Skin Integrity Impairment, Risk/Actual Skin Integrity Impairment, [...] monitoring required during toileting and ADLs]: RN, CLOTH LAYER and RT Surveillance [continuous indirect monitoring]: Monitor Patient-specific fall prevention interventions for sensory deficits provided, if applicable: [X] Yes CPG GOAL OUTCOME EVALUATION: Goal: Skin Integrity/Wound Healing Patient will demonstrate the desired outcomes by discharge/transition of care. Outcome: Ongoing (Interventions Implemented as Appropriate) 07/15/17 184 Skin Integrity Impairment, Risk/Actual (Adult) Skin Integrity/Wound [...] Contreras MD - 07/15/2017 4:58 PM EDT [facility] Operative Note Patient Name: Jose Bee : [id number] MR#: [id number] Case Date: 07/13/2017 Surgeon: Surgeon(s) and Role: * Sriram Contreras MD - Primary * Selvin Kaye MD - Resident-Finish Rolls Operator * Hilton Cheney PA - Physician Wholesale Agronomist Preoperative diagnosis: Right tongue base cancer Postoperative [...] completed, we then registered the patient using [employer] electromagnetic registration to the intraoperative imaging that [...] Vicryl suture. 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 male with PMH [...] have not been completed pt's spouse Briana Bee would be surrogate decision maker per [place] surrogate decision making law. Any patient receiving care at [facility] must abide by ID law. The hierarchy for surrogate decision making [...] (i) The agent with financial power of ip attorney or a conservator appointed in accordance with [...] Insurance: MEDICARE A & B Secondary Insurance: [facility] Prescription Coverage: yes. Preferred Pharmacy: [facility] in [place], [place]. Other: none. Primary Care Provider: Jovon Sifuentes MD [phone] Patient/Caregiver Goals of Treatment: plan being determined at this time. Likely [place] health [place] Potential Needs for Transition of Care: Rehab/SNF: tbd. Home Health: tbd. DME: none previously required. Dialysis: N/A Community Resources: none. Transportation: spouse will provide. Other: none. Anticipated Barriers to Discharge/Special Considerations: no barriers identified at this time. Plan: a member of the Care Management team will continue to monitor progress, follow for continuityof care and assist with transition of care planning. Taxi Servicer Roc Valdez RN, BSN Pager #[phone] documented in this encounter Plan of Treatment Upcoming Encounters Date Type Department Care Team (Late st Contact Info) Description 08/01/2024 1:00 PM EDT Office Visit Hematology/Oncology at [address] [phone] [facility] [address] HEMATOLOGY/[place] [address] [facility] [place] [address] 08/01/2024 1:30 PM EDT Infusion Hematology Oncology at [address] [phone] documented as of this encounter Procedures Procedure Name Priority Date/Time Associated Diagnosis Comments SPAR MACHINE OPERATOR HELPER SCAN 07/30/2017 12:00 AM EDT HEMOGRAM Routine [...] Routine 07/17/2017 10:34 AM EDT CARDIAC ENZYMES ([facility]) STAT 07/17/2017 5:42 AM EDT HEMOGRAM Routine 07/17/2017 12:30 AM EDT DIFFERENTIAL, AUTOMATED Routine 07/17/2017 12:30 AM EDT CARDIAC ENZYMES ([facility]) STAT 07/17/2017 12:30 AM EDT CBC (WITH [...] 2 ARTERIAL Routine 07/13/2017 10:35 AM EDT ABORH RECHECK STATUS STAT 07/13/2017 6:27 AM EDT TYPE AND SCREEN, SDP (FUTURE SURGERY, [facility] SAME DAY PROGRAM ONLY) STAT 07/13/2017 6:27 AM EDT ABO/RH TYPING STAT 07/13/2017 6:27 AM EDT ANTIBODY SCREEN STAT 07/13/2017 6:27 AM EDT documented in this encounter Results * SCAN DOC: SPAR MACHINE OPERATOR HELPER (07/30/2017 12:00 AM EDT) Anatomical Region Laterality Modality Other Narrative 07/30/2017 12:00 AM EDT Ordered by an unspecified provider. Scanning Provider MEDIA MGR SCAN EXT O RDR/RSLT * (ABNORMAL) Differential, Automated (07/29/2017 3:41 AM EDT) Neutrophils % 59.9 % [facility] Neutr Abs (ANC) 4.48 1.70 - 6.10 x10(3)/mc L [facility] Lymphocytes % 26.0 % [facility] Lymphocytes Abs 2.0 0.9 - 3.2 x10(3)/mc L [facility] Monocytes % 10.0 % [facility] Monocyte Abs 0.8 0.3 - 0.9 x10(3)/mc L [facility] Eosinophils % 2.1 % [facility] Eosinophils Abs 0.2 0.0 - 0.4 x10(3)/mc L [facility] Basophils % 0.7 % [facility] Basophils Abs 0.0 0.0 - 0.1 x10(3)/ L [facility] Immature Gran % 1.30 % [facility] Comment: Immature granulocytes(IG's)percentage and absolute count will include metamyelocytes, myelocytes, and promyelocytes. Blood smears from CBCs yielding IG's will be scanned manually for concordance. If this scan disagrees with the automated IG or if promyelocytes are noted, a manual differential will be performed. Patti Gran Abs 0.10(H) 0.00 - 0.04 x10(3)/ L [facility] Blood specimen (specimen) 07/29/2017 3:41 AM EDT 07/29/2017 3:58 AM EDT Narrative Resulting Agency Comment Spec In Lab Sriram Contreras MD HEMATOLOGY ORDERAB LES Performing Organization Address City/State/[facility] Co de Phone Number [facility] [place] [address] * (ABNORMAL) Hemogram (07/29/2017 3:41 AM EDT) WBC 7.5 4.0 - 9.5 x10(3)/[facility] RBC 4.14(L) 4.58 - 5.54 x10(6)/[facility] Hemoglobin 12.7(L) 13.7 - 16.5 gm/dL [facility] Hematocrit 38.1(L) 40.5 - 48.5 % [facility] MCV 92.0 82.9 - 93.[address] [facility] MCH 30.7 27.5 - 32.[address] [facility] MCHC 33.3 32.0 - 35.7 gm/dL [facility] Platelets 281 145 - 357 x10(3)/[facility] RDWSD 46.4(H) 36.0 - 45.[address] [facility] RDWCV 13.9(H) 11.4 - 13.8 % [facility] MPV 9.9 7.6 - 12.[address] [facility] nRBC % Auto 0.0 % [facility] nRBC Abs Auto 0.000 0.000 - 0.000 x10(3)/mcL [facility] Blood specimen (specimen) 07/29/2017 3:41 AM EDT 07/29/2017 3:58 AM EDT Narrative Resulting Agency Comment Spec In Lab Sriram Contreras MD HEMATOLOGY ORDERAB LES [facility] [place] [address] * Basic Metabolic Panel (non-fasting) (07/29/2017 3:41 AM EDT) Glucose Lvl 95 65 - 199 mg/dL [facility] Comment:Diabetes: >=200 mg/d L plus symptoms BUN 16 10 - 20 mg/dL [facility] Creatinine 0.95 0.80 - 1.50 mg/dL [facility] Comment: Please note that the pediatric reference intervals supplied above were not validated at [facility]. Results from pediatric patients should be interpreted in conjunction to the patient's age, height and muscle mass. Sodium 139 135 - 145 mmol/L [facility] Potassium 3.9 3.5 - 5.0 mmol/L [facility] Comment: Please note: ??Patients with WBC >100,000 may have falsely elevated Potassium levels. ??For accurate Potassium quantification in these patients send serum separator tube (gold top) for subsequent determinations. ??Contact the Clinical Chemistry Laboratory if there are any questions. Chloride 102 98 - 107 mmol/L [facility] CO2 24 22 - 31 mmol/L [facility] Anion Gap 13 5 - 15 mmol/L [facility] Calcium 8.9 8.5 - 10.5 mg/dL [facility] Estimated GFR >60 >=60 [facility] Comment: This estimated GFR (eGFR) [...] the following links into your internet browser. [email or web address] Blood specimen (specimen) 07/29/2017 3:41 AM EDT 07/29/2017 3:58 AM EDT Narrative Resulting Agency Comment Spec In Lab Sriram Contreras MD CHEMISTRY ORDERABL ES Performing Organization Address [facility] de Phone Number [facility] [place] [address] * POCT Glucose (07/28/2017 11:53 AM EDT) POC Glucose 107 65 - 199 mg/dL [facility] Comment: Supplemental ranges: <140 mg/dL before meals <180 mg/dL all other times of the day Blood specimen (specimen) 07/28/2017 11:53 AM EDT 07/28/2017 11:53 AM EDT Sriram Contreras MD POINT OF CARE TEST ORDERABLES Performing Organization Address [facility] de Phone Number [facility] [place] [address] * POCT Glucose (07/28/2017 7:52 AM EDT) POC Glucose 97 65 - 199 mg/dL [facility] Comment: Supplemental ranges: <140 mg/dL before meals <180 mg/dL all other times of the day Blood specimen (specimen) 07/28/2017 7:52 AM EDT 07/28/2017 7:52 AM EDT Sriram Contreras MD POINT OF CARE TEST ORDERABLES Performing Organization Address [facility]/ZIP Co de Phone Number [facility] [place] [address] * POCT Glucose (07/28/2017 4:27 AM EDT) POC Glucose 98 65 - 199 mg/dL [facility] Comment: Supplemental ranges: <140 mg/dL before meals <180 mg/dL all other times of the day Blood specimen (specimen) 07/28/2017 4:27 AM EDT 07/28/2017 4:27 AM EDT Sriram Contreras MD POINT OF CARE TEST ORDERABLES Performing Organization Address [facility] de Phone Number [facility] [place] [address] * Phosphorus (07/28/2017 3:47 AM EDT) Phosphorus 3.7 2.5 - 4.5 mg/dL [facility] Blood specimen (specimen) 07/28/2017 3:47 AM EDT 07/28/2017 6:16 AM EDT Narrative Resulting Agency Comment Spec In Lab Sriram Contreras MD CHEMISTRY ORDERABL ES Performing Organization Address [facility] de Phone Number [facility] [place] [address] * Magnesium (07/28/2017 3:47 AM EDT) Magnesium 0.86 0.69 - 1.07 mmol/L [facility] Blood specimen (specimen) 07/28/2017 3:47 AM EDT 07/28/2017 6:16 AM EDT Narrative Resulting Agency Comment Spec In Lab Sriram Contreras MD CHEMISTRY ORDERABL ES Performing Organization Address [facility] Co de Phone Number [facility] [place] [address] * (ABNORMAL) Differential, Automated (07/28/2017 3:47 AM EDT) Neutrophils % 62.2 % [facility] Neutr Abs (ANC) 4.94 1.70 - 6.10 x10(3)/[facility] Lymphocytes % 22.1 % [facility] Lymphocytes Abs 1.8 0.9 - 3.2 x10(3)/[facility] Monocytes % 10.6 % [facility] Monocyte Abs 0.8 0.3 - 0.9 x10(3)/[facility] Eosinophils % 2.1 % [facility] Eosinophils Abs 0.2 0.0 - 0.4 x10(3)/[facility] Basophils % 1.1 % [facility] Basophils Abs 0.1 0.0 - 0.1 x10(3)/[facility] Immature Gran % 1.90 % [facility] Comment: Immature granulocytes(IG's)percentage and absolute count will include metamyelocytes, myelocytes, and promyelocytes. Blood smears from CBCs yielding IG's will be scanned manually for concordance. If this scan disagrees with the automated IG or if promyelocytes are noted, a manual differential will be performed. Patti Gran Abs 0.15(H) 0.00 - 0.04 x10(3)/[facility] Blood specimen (specimen) 07/28/2017 3:47 AM EDT 07/28/2017 3:58 AM EDT Narrative Resulting Agency Comment Spec In Lab Sriram Contreras MD HEMATOLOGY ORDERAB LES [facility] [place] [address] * (ABNORMAL) Hemogram (07/28/2017 3:47 AM EDT) WBC 8.0 4.0 - 9.5 x10(3)/[facility] RBC 4.43(L) 4.58 - 5.54 x10(6)/[facility] Hemoglobin 13.4(L) 13.7 - 16.5 gm/dL [facility] Hematocrit 40.3(L) 40.5 - 48.5 % [facility] MCV 91.0 82.9 - 93.1 [facility] MCH 30.2 27.5 - 32.[address] [facility] MCHC 33.3 32.0 - 35.7 gm/dL [facility] Platelets 271 145 - 357 x10(3)/[facility] RDWSD 45.5(H) 36.0 - 45.0 [facility] RDWCV 13.8 11.4 - 13.8 % [facility] MPV 9.9 7.6 - 12.9 [facility] nRBC % Auto 0.0 % [facility] nRBC Abs Auto 0.000 0.000 - 0.000 x10(3)/[facility] Blood specimen (specimen) 07/28/2017 3:47 AM EDT 07/28/2017 3:58 AM EDT Narrative Resulting Agency Comment Spec In Lab Sriram Contreras MD HEMATOLOGY ORDERAB LES [facility] [place] [address] * Basic Metabolic Panel (non-fasting) (07/28/2017 3:47 AM EDT) Glucose Lvl 110 65 - 199 mg/dL [facility] Comment:Diabetes: >=200 mg/d L plus symptoms BUN 19 10 - 20 mg/dL [facility] Creatinine 0.96 0.80 - 1.50 mg/dL [facility] Comment: Please note that the pediatric reference intervals supplied above were not validated [facility] [facility]. Results from pediatric patients should be interpreted in conjunction to the patient's age, height and muscle mass. Sodium 140 135 - 145 mmol/L [facility] Potassium 3.6 3.5 - 5.0 mmol/L [facility] Comment: Please note: ??Patients with WBC >100,000 may have falsely elevated Potassium levels. ??For accurate Potassium quantification in these patients send serum separator tube (gold top) for subsequent determinations. ??Contact the Clinical Chemistry Laboratory if there are any questions. Chloride 101 98 - 107 mmol/L [facility] CO2 24 22 - 31 mmol/L [facility] Anion Gap 15 5 - 15 mmol/L [facility] Calcium 8.9 8.5 - 10.5 mg/dL [facility] Estimated GFR >60 >=60 [facility] Comment: This estimated GFR (eGFR) [...] the following links into your internet browser. [email or web address] Blood specimen (specimen) 07/28/2017 3:47 AM EDT 07/28/2017 3:58 AM EDT Narrative Resulting Agency Comment Spec In Lab Sriram Contreras MD CHEMISTRY ORDERABL ES [facility] [place] [address] * POCT Glucose (07/27/2017 11:52 PM EDT) POC Glucose 94 65 - 199 mg/dL [facility] Comment: Supplemental ranges: <140 mg/dL before meals <180 mg/dL all other times of the day Blood specimen (specimen) 07/27/2017 11:52 PM EDT 07/27/2017 11:52 PM EDT Sriram Contreras MD POINT OF CARE TEST ORDERABLES [facility] [place] [address] * Heparin, low molecular weight assay (07/27/2017 8:19 PM EDT) Heparin [id number] 0.67 IU/mL [facility] Comment: Guidelines for therapeutic unfractionated and low molecular weight heparin levels for the various formulations available in the [place] are summarized below. Anti-Xa levels should be [...] MD HEMATOLOGY ORDERAB LES Performing Organization Address City/[facility] Co de Phone Number [facility] [place] [address] * POCT Glucose (07/27/2017 7:35 PM EDT) POC Glucose 118 65 - 199 mg/dL [facility] Comment: Supplemental ranges: <140 mg/dL before meals <180 mg/dL all other times of the day Blood specimen (specimen) 07/27/2017 7:35 PM EDT 07/27/2017 7:35 PM EDT Sriram Contreras MD POINT OF CARE TEST ORDERABLES Performing Organization Address [facility] Co de Phone Number [facility] [place] [address] * POCT Glucose (07/27/2017 3:28 PM EDT) POC Glucose 104 65 - 199 mg/dL [facility] Comment: Supplemental ranges: <140 mg/dL before meals <180 mg/dL all other times of the day Blood specimen (specimen) 07/27/2017 3:28 PM EDT 07/27/2017 3:28 PM EDT Sriram Contreras MD POINT OF CARE TEST ORDERABLES Performing Organization Address [facility] Co de Phone Number [facility] [place] [address] * POCT Glucose (07/27/2017 11:06 AM EDT) POC Glucose 147 65 - 199 mg/dL [facility] Comment: Supplemental ranges: <140 mg/dL before meals <180 mg/dL all other times of the day Blood specimen (specimen) 07/27/2017 11:06 AM EDT 07/27/2017 11:06 AM EDT Sriram Contreras MD POINT OF CARE TEST ORDERABLES Performing Organization Address City/[facility]/ZIP Co de Phone Number [facility] [place] [address] * POCT Glucose (07/27/2017 7:25 AM EDT) POC Glucose 105 65 - 199 mg/dL [facility] Comment: Supplemental ranges: <140 mg/dL before meals <180 mg/dL all other times of the day Blood specimen (specimen) 07/27/2017 7:25 AM EDT 07/27/2017 7:25 AM EDT Sriram Contreras MD POINT OF CARE TEST ORDERABLES Performing Organization Address City/[facility]/ZIP Co de Phone Number [facility] [place] [address] * Duplex Study for DVT, Bilat legs (07/27/2017 6:59 AM EDT) VB Text Report Department: Vascular Surgery Lab Patient: [id number] (MARSHALLJOSE) CPT: 87134 ICD10: I26.99 Referring Physician: SRIRAM CONTRERAS ?? [...] MD VASCULAR ORDERABLE S Performing Organization Address City/[facility]/ZIP Co de Phone Number [employer] * POCT Glucose (07/27/2017 3:52 AM EDT) Pathologist [facility] POC Glucose 106 65 - 199 mg/dL [facility] Comment: Supplemental ranges: <140 mg/dL before meals <180 mg/dL all other times of the day Blood specimen (specimen) 07/27/2017 3:52 AM EDT 07/27/2017 3:52 AM EDT Sriram Contreras MD POINT OF CARE TEST ORDERABLES Performing Organization Address [facility]/ZIP Co de Phone Number [facility] [place] [address] * (ABNORMAL) APTT (07/27/2017 2:45 AM EDT) PTT 92(H) 25 - [address] [facility] Comment: The recommended therapeutic range for full dose, unfractionated heparin at [facility] is 80 ? [...] MD HEMATOLOGY ORDERAB LES Performing Organization Address City/[facility]/ZIP Co de Phone Number [facility] [place] [address] * (ABNORMAL) Differential, Automated (07/27/2017 2:45 AM EDT) Neutrophils % 67.8 % [facility] Neutr Abs (ANC) 8.40(H) 1.70 - 6.10 x10(3)/ L [facility] Lymphocytes % 17.4 % [facility] Lymphocytes Abs 2.2 0.9 - 3.2 x10(3)/[facility] Monocytes % 9.5 % [facility] Monocyte Abs 1.2(H) 0.3 - 0.9 x10(3)/[facility] Eosinophils % 1.4 % [facility] Eosinophils Abs 0.2 0.0 - 0.4 x10(3)/[facility] Basophils % 0.9 % [facility] Basophils Abs 0.1 0.0 - 0.1 x10(3)/[facility] Immature Gran % 3.00 % [facility] Comment: Immature granulocytes(IG's)percentage and absolute count will include metamyelocytes, myelocytes, and promyelocytes. Blood smears from CBCs yielding IG's will be scanned manually for concordance. If this scan disagrees with the automated IG or if promyelocytes are noted, a manual differential will be performed. Patti Gran Abs 0.37(H) 0.00 - 0.04 x10(3)/ L [facility] Blood specimen (specimen) 07/27/2017 2:45 AM EDT 07/27/2017 2:55 AM EDT Narrative Resulting Agency Comment Spec In Lab Sriram Contreras MD HEMATOLOGY ORDERAB LES Performing Organization Address City/[facility]/ZIP Co de Phone Number [facility] [place] [address] * (ABNORMAL) Hemogram (07/27/2017 2:45 AM EDT) WBC 12.4(H) 4.0 - 9.5 x10(3)/[facility] RBC 4.66 4.58 - 5.54 x10(6)/[facility] Hemoglobin 14.3 13.7 - 16.5 gm/dL [facility] Hematocrit 42.0 40.5 - 48.5 % [facility] MCV 90.1 82.9 - 93.[address] [facility] MCH 30.7 27.5 - 32.[address] [facility] MCHC 34.0 32.0 - 35.7 gm/dL [facility] Platelets 288 145 - 357 x10(3)/[facility] RDWSD 45.5(H) 36.0 - 45.0 [facility] RDWCV 14.0(H) 11.4 - 13.8 % [facility] MPV 9.7 7.6 - 12.9 [facility] nRBC % Auto 0.0 % [facility] nRBC Abs Auto 0.000 0.000 - 0.000 x10(3)/[facility] Blood specimen (specimen) 07/27/2017 2:45 AM EDT 07/27/2017 2:55 AM EDT Narrative Resulting Agency Comment Spec In Lab Sriram Contreras MD HEMATOLOGY ORDERAB LES [facility] [place] [address] * (ABNORMAL) Basic Metabolic Panel (non-fasting) (07/27/2017 2:45 AM EDT) Pathologist [facility] Glucose Lvl 169 65 - 199 mg/dL [facility] Comment:Diabetes: >=200 mg/d L plus symptoms BUN 22(H) 10 - 20 mg/dL [facility] Creatinine 0.92 0.80 - 1.50 mg/dL [facility] Comment: Please note that the pediatric reference intervals supplied above were not validated at [facility]. Results from pediatric patients should be interpreted in conjunction to the patient's age, height and muscle mass. Sodium 139 135 - 145 mmol/L [facility] Potassium 3.7 3.5 - 5.0 mmol/L [facility] Comment: Please note: ??Patients with WBC >100,000 may have falsely elevated Potassium levels. ??For accurate Potassium quantification in these patients send serum separator tube (gold top) for subsequent determinations. ??Contact the Clinical Chemistry Laboratory if there are any questions. Chloride 100 98 - 107 mmol/L [facility] CO2 23 22 - 31 mmol/L [facility] Anion Gap 16(H) 5 - 15 mmol/L [facility] Calcium 9.4 8.5 - 10.5 mg/dL [facility] Estimated GFR >60 >=60 [facility] Comment: This estimated GFR (eGFR) [...] the following links into your internet browser. [email or web address] Blood specimen (specimen) 07/27/2017 2:45 AM EDT 07/27/2017 2:55 AM EDT Narrative Resulting Agency Comment Spec In Lab Sriram Contreras MD CHEMISTRY ORDERABL ES [facility] [place] [address] * Phosphorus (07/27/2017 2:45 AM EDT) Phosphorus 4.3 2.5 - 4.5 mg/dL [facility] Blood specimen (specimen) 07/27/2017 2:45 AM EDT 07/27/2017 2:55 AM EDT Narrative Resulting Agency Comment Spec In Lab Sriram Contreras MD CHEMISTRY ORDERABL ES Performing Organization Address [facility] Co de Phone Number [facility] [place] [address] * Magnesium (07/27/2017 2:45 AM EDT) [facility] Magnesium 0.79 0.69 - 1.07 mmol/L [facility] Blood specimen (specimen) 07/27/2017 2:45 AM EDT 07/27/2017 2:55 AM EDT Narrative Resulting Agency Comment Spec In Lab Sriram Contreras MD CHEMISTRY ORDERABL ES Performing Organization Address [facility] de Phone Number [facility] [place] [address] * POCT Glucose (07/27/2017 12:02 AM EDT) [facility] POC Glucose 112 65 - 199 mg/dL [facility] Comment: Supplemental ranges: <140 mg/dL before meals <180 mg/dL all other times of the day Blood specimen (specimen) 07/27/2017 12:02 AM EDT 07/27/2017 12:02 AM EDT Sriram Contreras MD POINT OF CARE TEST ORDERABLES Performing Organization Address [facility] Co de Phone Number [facility] [place] [address] * (ABNORMAL) APTT (07/26/2017 9:29 PM EDT) [facility] PTT 90(H) 25 - [address] [facility] Comment: The recommended therapeutic range for full dose, unfractionated heparin at [facility] is 80 ? [...] MD HEMATOLOGY ORDERAB LES Performing Organization Address [facility] Co de Phone Number [facility] [place] [address] * POCT Glucose (07/26/2017 8:14 PM EDT) POC Glucose 116 65 - 199 mg/dL [facility] Comment: Supplemental ranges: <140 mg/dL before meals <180 mg/dL all other times of the day Blood specimen (specimen) 07/26/2017 8:14 PM EDT 07/26/2017 8:14 PM EDT Sriram Contreras MD POINT OF CARE TEST ORDERABLES Performing Organization Address [facility] de Phone Number [facility] [place] [address] * POCT Glucose (07/26/2017 3:20 PM EDT) POC Glucose 125 65 - 199 mg/dL [facility] Comment: Supplemental ranges: <140 mg/dL before meals <180 mg/dL all other times of the day Blood specimen (specimen) 07/26/2017 3:20 PM EDT 07/26/2017 3:20 PM EDT Sriram Contreras MD POINT OF CARE TEST ORDERABLES Performing Organization Address [facility] de Phone Number [facility] [place] [address] * (ABNORMAL) APTT (07/26/2017 1:51 PM EDT) PTT 88(H) 25 - [address] [facility] Comment: The recommended therapeutic range for full dose, unfractionated heparin at [facility] is 80 ? [...] MD HEMATOLOGY ORDERAB LES Performing Organization Address [facility] Co de Phone Number [facility] [place] [address] * POCT Glucose (07/26/2017 11:12 AM EDT) POC Glucose 120 65 - 199 mg/dL [facility] Comment: Supplemental ranges: <140 mg/dL before meals <180 mg/dL all other times of the day Blood specimen (specimen) 07/26/2017 11:12 AM EDT 07/26/2017 11:12 AM EDT Sriram Contreras MD POINT OF CARE TEST ORDERABLES Performing Organization Address [facility] Phone Number [facility] [place] [address] * POCT Glucose (07/26/2017 7:35 AM EDT) POC Glucose 115 65 - 199 mg/dL [facility] Comment: Supplemental ranges: <140 mg/dL before meals <180 mg/dL all other times of the day Blood specimen (specimen) 07/26/2017 7:35 AM EDT 07/26/2017 7:35 AM EDT Sriram Contreras MD POINT OF CARE TEST ORDERABLES Performing Organization Address [facility] Co de Phone Number [facility] [place] [address] * (ABNORMAL) APTT (07/26/2017 3:30 AM EDT) PTT 60(H) 25 - [address] [facility] Comment: The recommended therapeutic range for full dose, unfractionated heparin at [facility] is 80 ? 114 seconds. The use of the anti-Xa (heparin) level rather than the PTT is recommended for monitoring anticoagulation intensity in critically ill patients receiving unfractionated heparin by continuous IV infusion. Blood specimen (specimen) 07/26/2017 3:30 AM EDT 07/26/2017 4:11 AM EDT Narrative Resulting Agency Comment Spec In Lab Sriram Contreras MD HEMATOLOGY ORDERAB LES [facility] [place] [address] * (ABNORMAL) Differential, Automated (07/26/2017 3:30 AM EDT) Neutrophils % 68.7 % [facility] Neutr Abs (ANC) 8.50(H) 1.70 - 6.10 x10(3)/mc L [facility] Lymphocytes % 14.3 % [facility] Lymphocytes Abs 1.8 0.9 - 3.2 x10(3)/mc L [facility] Monocytes % 9.6 % [facility] Monocyte Abs 1.2(H) 0.3 - 0.9 x10(3)/mc L [facility] Eosinophils % 1.3 % [facility] Eosinophils Abs 0.2 0.0 - 0.4 x10(3)/mc L [facility] Basophils % 1.4 % [facility] Basophils Abs 0.2(H) 0.0 - 0.1 x10(3)/mc L [facility] Immature Gran % 4.70 % [facility] Comment: Immature granulocytes(IG's)percentage and absolute count will include metamyelocytes, myelocytes, and promyelocytes. Blood smears from CBCs yielding IG's will be scanned manually for concordance. If this scan disagrees with the automated IG or if promyelocytes are noted, a manual differential will be performed. Patti Gran Abs 0.58(H) 0.00 - 0.04 x10(3)/ L [facility] Blood specimen (specimen) 07/26/2017 3:30 AM EDT 07/26/2017 4:11 AM EDT Narrative Resulting Agency Comment Spec In Lab Sriram Contreras MD HEMATOLOGY ORDERAB LES [facility] [place] [address] * (ABNORMAL) Hemogram (07/26/2017 3:30 AM EDT) WBC 12.4(H) 4.0 - 9.5 x10(3)/[facility] RBC 4.87 4.58 - 5.54 x10(6)/[facility] Hemoglobin 15.2 13.7 - 16.5 gm/dL [facility] Hematocrit 44.1 40.5 - 48.5 % [facility] MCV 90.6 82.9 - 93.1 [facility] MCH 31.2 27.5 - 32.[address] [facility] MCHC 34.5 32.0 - 35.7 gm/dL [facility] Platelets 253 145 - 357 x10(3)/[facility] RDWSD 44.8 36.0 - 45.0 [facility] RDWCV 13.6 11.4 - 13.8 % [facility] MPV 10.4 7.6 - 12.9 [facility] nRBC % Auto 0.2 % [facility] nRBC Abs Auto 0.020(H) 0.000 - 0.000 x10(3)/[facility] Blood specimen (specimen) 07/26/2017 3:30 AM EDT 07/26/2017 4:11 AM EDT Narrative Resulting Agency Comment Spec In Lab Sriram Contreras MD HEMATOLOGY ORDERAB LES [facility] [place] [address] * Basic Metabolic Panel (non-fasting) (07/26/2017 3:30 AM EDT) Glucose Lvl 123 65 - 199 mg/dL [facility] Comment:Diabetes: >=200 mg/d L plus symptoms BUN 18 10 - 20 mg/dL [facility] Creatinine 0.85 0.80 - 1.50 mg/dL [facility] Comment: Please note that the pediatric reference intervals supplied above were not validated at [facility]. Results from pediatric patients should be interpreted in conjunction to the patient's age, height and muscle mass. Sodium 141 135 - 145 mmol/L [facility] Potassium 3.8 3.5 - 5.0 mmol/L [facility] Comment: Please note: ??Patients with WBC >100,000 may have falsely elevated Potassium levels. ??For accurate Potassium quantification in these patients send serum separator tube (gold top) for subsequent determinations. ??Contact the Clinical Chemistry Laboratory if there are any questions. Chloride 102 98 - 107 mmol/L [facility] CO2 25 22 - 31 mmol/L [facility] Anion Gap 14 5 - 15 mmol/L [facility] Calcium 9.2 8.5 - 10.5 mg/dL [facility] Estimated GFR >60 >=60 [facility] Comment: This estimated GFR (eGFR) [...] the following links into your internet browser. [email or web address] Blood specimen (specimen) 07/26/2017 3:30 AM EDT 07/26/2017 4:11 AM EDT Narrative Resulting Agency Comment Spec In Lab Sriram Contreras MD CHEMISTRY ORDERABL ES Performing Organization Address [facility] Co de Phone Number [facility] [place] [address] * Prealbumin (07/26/2017 3:30 AM EDT) Prealbumin 26 20 - 40 mg/dL [facility] Comment: Prealbumin levels are generally lower in the pediatric population; adult concentrations are usually attained near puberty. Blood specimen (specimen) 07/26/2017 3:30 AM EDT 07/26/2017 4:11 AM EDT Narrative Resulting Agency Comment Spec In Lab Sriram Contreras MD CHEMISTRY ORDERABL ES Performing Organization Address [facility] Co de Phone Number [facility] [place] [address] * POCT Glucose (07/26/2017 3:27 AM EDT) POC Glucose 116 65 - 199 mg/dL [facility] Comment: Supplemental ranges: <140 mg/dL before meals <180 mg/dL all other times of the day Blood specimen (specimen) 07/26/2017 3:27 AM EDT 07/26/2017 3:27 AM EDT Sriram Contreras MD POINT OF CARE TEST ORDERABLES Performing Organization Address [facility] de Phone Number [facility] [place] [address] * POCT Glucose (07/25/2017 7:50 PM EDT) POC Glucose 109 65 - 199 mg/dL [facility] Comment: Supplemental ranges: <140 mg/dL before meals <180 mg/dL all other times of the day Blood specimen (specimen) 07/25/2017 7:50 PM EDT 07/25/2017 7:50 PM EDT Sriram Contreras MD POINT OF CARE TEST ORDERABLES Performing Organization Address [facility] Co de Phone Number [facility] [place] [address] * (ABNORMAL) APTT (07/25/2017 5:51 PM EDT) PTT 112(H) 25 - [address] [facility] Comment: The recommended therapeutic range for full dose, unfractionated heparin at [facility] is 80 ? [...] MD HEMATOLOGY ORDERAB LES Performing Organization Address [facility] Co de Phone Number [facility] [place] [address] * POCT Glucose (07/25/2017 4:01 PM EDT) POC Glucose 109 65 - 199 mg/dL [facility] Comment: Supplemental ranges: <140 mg/dL before meals <180 mg/dL all other times of the day Blood specimen (specimen) 07/25/2017 4:01 PM EDT 07/25/2017 4:01 PM EDT Sriram Contreras MD POINT OF CARE TEST ORDERABLES Performing Organization Address [facility] Co de Phone Number [facility] [place] [address] * POCT Glucose (07/25/2017 12:10 PM EDT) POC Glucose 117 65 - 199 mg/dL [facility] Comment: Supplemental ranges: <140 mg/dL before meals <180 mg/dL all other times of the day Blood specimen (specimen) 07/25/2017 12:10 PM EDT 07/25/2017 12:10 PM EDT Sriram Contreras MD POINT OF CARE TEST ORDERABLES Performing Organization Address [facility] de Phone Number [facility] [place] [address] * Potassium (07/25/2017 11:00 AM EDT) Potassium 3.9 3.5 - 5.0 mmol/L [facility] Comment: Please note: ??Patients with [...] MD CHEMISTRY ORDERABL ES Performing Organization Address [facility] de Phone Number [facility] [place] [address] * (ABNORMAL) APTT (07/25/2017 11:00 AM EDT) PTT 102(H) 25 - [address] [facility] Comment: The recommended therapeutic range for full dose, unfractionated heparin at [facility] is 80 ? [...] MD HEMATOLOGY ORDERAB LES Performing Organization Address City/[facility]/ZIP Co de Phone Number [facility] [place] [address] * POCT Glucose (07/25/2017 8:27 AM EDT) [facility] POC Glucose 124 65 - 199 mg/dL [facility] Comment: Supplemental ranges: <140 mg/dL before meals <180 mg/dL all other times of the day Blood specimen (specimen) 07/25/2017 8:27 AM EDT 07/25/2017 8:27 AM EDT Sriram Contreras MD POINT OF CARE TEST ORDERABLES Performing Organization Address [facility] Co de Phone Number [facility] [place] [address] * (ABNORMAL) BLOOD GAS 2 ARTERIAL (07/25/2017 6:19 AM EDT) [facility] pH Art 7.51(H) 7.35 - 7.45 [facility] pCO2 Art 29(L) 35 - [address] [facility] pO2 Art 59(L) 85 - [address] [facility] HCO3 Art 22.2 20.0 - 26.0 mmol/L [facility] BE Art -0.9 -3.0 - 3.0 mmol/L [facility] Hgb Blood Gas 14.6 13.7 - 16.5 gm/dL [facility] O2HB Art 91.1(L) 94.0 - 97.0 % [facility] COHB Art 0.3 % [facility] Comment: Nonsmokers: 0.5-1.5% COHB Smokers: Variable, but usually less than 10% Toxic: 20-30% COHB Lethal: Greater than 60% COHB METHB Art 0.6 <=1.5 % [facility] Na Whole Blood 141 135 - 145 mmol/L [facility] K Whole Blood 3.8 3.5 - 5.0 mmol/L [facility] Comment: Please note: Patients with WBC >100,000 may have falsely elevated Potassium levels. Contact the Clinical Chemistry Laboratory if there are any questions. ICa Whole Blood 1.17 1.15 - 1.33 mmol/L [facility] Comment: Note: ??Total bilirubin higher than 20 mg/dL may lead to falsely low ionized calcium. CL Whole Blood 108(H) 98 - 107 mmol/L [facility] Gluc Whole Bld 136 65 - 199 mg/dL [facility] Comment:Diabetes: >=200 mg/d L plus symptoms. Lactate WB 1.5 0.5 - 2.2 mmol/L [facility] Blood specimen (specimen) 07/25/2017 6:19 AM EDT 07/25/2017 6:19 AM EDT Sriram Contreras MD CHEMISTRY ORDERABL ES Performing Organization Address [facility] de Phone Number [facility] [place] [address] * POCT Glucose (07/25/2017 4:41 AM EDT) POC Glucose 101 65 - 199 mg/dL [facility] Comment: Supplemental ranges: <140 mg/dL before meals <180 mg/dL all other times of the day Blood specimen (specimen) 07/25/2017 4:41 AM EDT 07/25/2017 4:41 AM EDT Sriram Contreras MD POINT OF CARE TEST ORDERABLES Performing Organization Address [facility] Co de Phone Number [facility] [place] [address] * Magnesium (07/25/2017 4:37 AM EDT) Magnesium 0.83 0.69 - 1.07 mmol/L [facility] Blood specimen (specimen) Venous Draw / Unknown 07/25/2017 4:37 AM EDT 07/25/2017 4:50 AM EDT Narrative Resulting Agency Comment Spec In Lab Sriram Contreras MD CHEMISTRY ORDERABL ES Performing Organization Address City/[facility]/ZIP Co de Phone Number [facility] [place] [address] * (ABNORMAL) Differential, Automated (07/25/2017 4:37 AM EDT) Neutrophils % 68.4 % [facility] Neutr Abs (ANC) 8.77(H) 1.70 - 6.10 x10(3)/[facility] Lymphocytes % 15.0 % [facility] Lymphocytes Abs 1.9 0.9 - 3.2 x10(3)/[facility] Monocytes % 8.9 % [facility] Monocyte Abs 1.1(H) 0.3 - 0.9 x10(3)/[facility] Eosinophils % 1.9 % [facility] Eosinophils Abs 0.2 0.0 - 0.4 x10(3)/[facility] Basophils % 1.0 % [facility] Basophils Abs 0.1 0.0 - 0.1 x10(3)/[facility] Immature Gran % 4.80 % [facility] Comment: Immature granulocytes(IG's)percentage and absolute count will include metamyelocytes, myelocytes, and promyelocytes. Blood smears from CBCs yielding IG's will be scanned manually for concordance. If this scan disagrees with the automated IG or if promyelocytes are noted, a manual differential will be performed. Patti Gran Abs 0.62(H) 0.00 - 0.04 x10(3)/[facility] Blood specimen (specimen) 07/25/2017 4:37 AM EDT 07/25/2017 4:48 AM EDT Narrative Resulting Agency Comment Spec In Lab Sriram Contreras MD HEMATOLOGY ORDERAB LES [facility] [place] [address] * (ABNORMAL) Hemogram (07/25/2017 4:37 AM EDT) Pathologist [facility] WBC 12.8(H) 4.0 - 9.5 x10(3)/[facility] LAB[facility]ORY RBC 4.53(L) 4.58 - 5.54 x10(6)/[facility] Hemoglobin 14.0 13.7 - 16.5 gm/dL [facility] Hematocrit 40.3(L) 40.5 - 48.5 % [facility] MCV 89.0 82.9 - 93.1 [facility] MCH 30.9 27.5 - 32.[address] [facility] MCHC 34.7 32.0 - 35.7 gm/dL [facility] Platelets 241 145 - 357 x10(3)/[facility] RDWSD 43.1 36.0 - 45.0 [facility] RDWCV 13.2 11.4 - 13.8 % [facility] MPV 9.9 7.6 - 12.9 [facility] nRBC % Auto 0.0 % [facility] nRBC Abs Auto 0.000 0.000 - 0.000 x10(3)/[facility] Blood specimen (specimen) 07/25/2017 4:37 AM EDT 07/25/2017 4:48 AM EDT Narrative Resulting Agency Comment Spec In Lab Sriram Contreras MD HEMATOLOGY ORDERAB LES [facility] [place] [address] * Basic Metabolic Panel (non-fasting) (07/25/2017 4:37 AM EDT) Pathologist [facility] Glucose Lvl 120 65 - 199 mg/dL [facility] Comment:Diabetes: >=200 mg/d L plus symptoms BUN 14 10 - 20 mg/dL [facility] Creatinine 0.81 0.80 - 1.50 mg/dL [facility] Comment: Please note that the pediatric reference intervals supplied above were not validated at [facility]. Results from pediatric patients should be interpreted in conjunction to the patient's age, height and muscle mass. Sodium 140 135 - 145 mmol/L [facility] Potassium 3.6 3.5 - 5.0 mmol/L [facility] Comment: Please note: ??Patients with WBC >100,000 may have falsely elevated Potassium levels. ??For accurate Potassium quantification in these patients send serum separator tube (gold top) for subsequent determinations. ??Contact the Clinical Chemistry Laboratory if there are any questions. Chloride 103 98 - 107 mmol/L [facility] CO2 24 22 - 31 mmol/L [facility] Anion Gap 13 5 - 15 mmol/L [facility] Calcium 8.8 8.5 - 10.5 mg/dL [facility] Estimated GFR >60 >=60 [facility] Comment: This estimated GFR (eGFR) [...] the following links into your internet browser. [email or web address] Blood specimen (specimen) 07/25/2017 4:37 AM EDT 07/25/2017 4:48 AM EDT Narrative Resulting Agency Comment Spec In Lab Sriram Contreras MD CHEMISTRY ORDERABL ES [facility] [place] [address] * (ABNORMAL) APTT (07/25/2017 4:37 AM EDT) PTT 122(H) 25 - [address] [facility] Comment: The recommended therapeutic range for full dose, unfractionated heparin at [facility] is 80 ? [...] MD HEMATOLOGY ORDERAB LES Performing Organization Address [facility] Co de Phone Number [facility] [place] [address] * POCT Glucose (07/25/2017 12:10 AM EDT) POC Glucose 108 65 - 199 mg/dL [facility] Comment: Supplemental ranges: <140 mg/dL before meals <180 mg/dL all other times of the day Blood specimen (specimen) 07/25/2017 12:10 AM EDT 07/25/2017 12:10 AM EDT Sriram Contreras MD POINT OF CARE TEST ORDERABLES Performing Organization Address [facility] Co de Phone Number [facility] [place] [address] * POCT Glucose (07/24/2017 8:05 PM EDT) POC Glucose 112 65 - 199 mg/dL [facility] Comment: Supplemental ranges: <140 mg/dL before meals <180 mg/dL all other times of the day Blood specimen (specimen) 07/24/2017 8:05 PM EDT 07/24/2017 8:05 PM EDT Sriram Contreras MD POINT OF CARE TEST ORDERABLES Performing Organization Address City/[facility]/ZIP Co de Phone Number [facility] [place] [address] * POCT Glucose (07/24/2017 8:04 PM EDT) POC Glucose 106 65 - 199 mg/dL [facility] Comment: Supplemental ranges: <140 mg/dL before meals <180 mg/dL all other times of the day Blood specimen (specimen) 07/24/2017 8:04 PM EDT 07/24/2017 8:04 PM EDT Sriram Contreras MD POINT OF CARE TEST ORDERABLES [facility] [place] [address] * POCT Glucose (07/24/2017 3:42 PM EDT) POC Glucose 108 65 - 199 mg/dL [facility] Comment: Supplemental ranges: <140 mg/dL before meals <180 mg/dL all other times of the day Blood specimen (specimen) 07/24/2017 3:42 PM EDT 07/24/2017 3:42 PM EDT Sriram Contreras MD POINT OF CARE TEST ORDERABLES [facility] [place] [address] * POCT Glucose (07/24/2017 11:42 AM EDT) POC Glucose 102 65 - 199 mg/dL [facility] Comment: Supplemental ranges: <140 mg/dL before meals <180 mg/dL all other times of the day Blood specimen (specimen) 07/24/2017 11:42 AM EDT 07/24/2017 11:42 AM EDT Sriram Contreras MD POINT OF CARE TEST ORDERABLES [facility] [place] [address] * POCT Glucose (07/24/2017 8:00 AM EDT) POC Glucose 107 65 - 199 mg/dL [facility] Comment: Supplemental ranges: <140 mg/dL before meals <180 mg/dL all other times of the day Blood specimen (specimen) 07/24/2017 8:00 AM EDT 07/24/2017 8:00 AM EDT Sriram Contreras MD POINT OF CARE TEST ORDERABLES [facility] [place] [address] * (ABNORMAL) BLOOD GAS 2 ARTERIAL (07/24/2017 7:28 AM EDT) pH Art 7.44 7.35 - 7.45 [facility] pCO2 Art 39 35 - [address] [facility] pO2 Art 67(L) 85 - [address] [facility] HCO3 Art 25.5 20.0 - 26.0 mmol/L [facility] BE Art 1.2 -3.0 - 3.0 mmol/L [facility] Hgb Blood Gas 13.8 13.7 - 16.5 gm/dL [facility] O2HB Art 92.8(L) 94.0 - 97.0 % [facility] COHB Art 0.3 % [facility] Comment: Nonsmokers: 0.5-1.5% COHB Smokers: Variable, but usually less than 10% Toxic: 20-30% COHB Lethal: Greater than 60% COHB METHB Art 0.6 <=1.5 % [facility] Na Whole Blood 139 135 - 145 mmol/L [facility] K Whole Blood 4.0 3.5 - 5.0 mmol/L [facility] Comment: Please note: Patients with WBC >100,000 may have falsely elevated Potassium levels. Contact the Clinical Chemistry Laboratory if there are any questions. ICa Whole Blood 1.21 1.15 - 1.33 mmol/L [facility] Comment: Note: ??Total bilirubin higher than 20 mg/dL may lead to falsely low ionized calcium. CL Whole Blood 105 98 - 107 mmol/L [facility] Gluc Whole Bld 123 65 - 199 mg/dL [facility] Comment:Diabetes: >=200 mg/d L plus symptoms. Lactate WB 1.7 0.5 - 2.2 mmol/L [facility] FIO2 Art 30 % [facility] PF Ratio Art 223 [facility] Blood specimen (specimen) 07/24/2017 7:28 AM EDT 07/24/2017 7:28 AM EDT Sriram Contreras MD CHEMISTRY ORDERABL ES Performing Organization Address [facility] Co de Phone Number [facility] [place] [address] * Potassium (07/24/2017 7:28 AM EDT) Potassium 4.1 3.5 - 5.0 mmol/L [facility] Comment: Please note: ??Patients with [...] MD CHEMISTRY ORDERABL ES Performing Organization Address [facility] Co de Phone Number [facility] [place] [address] * POCT Glucose (07/24/2017 3:42 AM EDT) POC Glucose 91 65 - 199 mg/dL [facility] Comment: Supplemental ranges: <140 mg/dL before meals <180 mg/dL all other times of the day Blood specimen (specimen) 07/24/2017 3:42 AM EDT 07/24/2017 3:42 AM EDT Sriram Contreras MD POINT OF CARE TEST ORDERABLES Performing Organization Address City/[facility]/ZIP Co de Phone Number [facility] [place] [address] * Scan, Peripheral Blood (07/24/2017 1:00 AM EDT) Plat Estimate Normal [facility] RBC Morphology Normal [facility] Blood specimen (specimen) Venous Draw / Unknown 07/24/2017 1:00 AM EDT 07/24/2017 1:15 AM EDT Narrative Resulting Agency Comment Spec In Lab Sriram Contreras MD HEMATOLOGY ORDERAB LES Performing Organization Address City/[facility]/ZIP Co de Phone Number [facility] [place] [address] * (ABNORMAL) Differential, Automated (07/24/2017 1:00 AM EDT) [facility] Neutrophils % 69.9 % [facility] Neutr Abs (ANC) 9.34(H) 1.70 - 6.10 x10(3)/mc L [facility] Lymphocytes % 13.7 % [facility] Lymphocytes Abs 1.8 0.9 - 3.2 x10(3)/mc L [facility] Monocytes % 8.1 % [facility] Monocyte Abs 1.1(H) 0.3 - 0.9 x10(3)/mc L [facility] Eosinophils % 2.2 % [facility] Eosinophils Abs 0.3 0.0 - 0.4 x10(3)/mc L [facility] Basophils % 0.7 % [facility] Basophils Abs 0.1 0.0 - 0.1 x10(3)/mc L [facility] Immature Gran % 5.40 % [facility] Comment: Immature granulocytes(IG's)percentage and absolute count will include metamyelocytes, myelocytes, and promyelocytes. Blood smears from CBCs yielding IG's will be scanned manually for concordance. If this scan disagrees with the automated IG or if promyelocytes are noted, a manual differential will be performed. Patti Gran Abs 0.72(H) 0.00 - 0.04 x10(3)/ L [facility] Blood specimen (specimen) 07/24/2017 1:00 AM EDT 07/24/2017 1:15 AM EDT Narrative Resulting Agency Comment Spec In Lab Sriram Contreras MD HEMATOLOGY ORDERAB LES [facility] [place] [address] * (ABNORMAL) Hemogram (07/24/2017 1:00 AM EDT) WBC 13.4(H) 4.0 - 9.5 x10(3)/[facility] RBC 4.13(L) 4.58 - 5.54 x10(6)/[facility] Hemoglobin 12.7(L) 13.7 - 16.5 gm/dL [facility] Hematocrit 38.0(L) 40.5 - 48.5 % [facility] MCV 92.0 82.9 - 93.[address] [facility] MCH 30.8 27.5 - 32.[address] [facility] MCHC 33.4 32.0 - 35.7 gm/dL [facility] Platelets 201 145 - 357 x10(3)/[facility] RDWSD 45.5(H) 36.0 - 45.0 [facility] RDWCV 13.4 11.4 - 13.8 % [facility] MPV 10.1 7.6 - 12.9 [facility] nRBC % Auto 0.0 % [facility] nRBC Abs Auto 0.000 0.000 - 0.000 x10(3)/mcL [facility] Blood specimen (specimen) 07/24/2017 1:00 AM EDT 07/24/2017 1:15 AM EDT Narrative Resulting Agency Comment Spec In Lab Sriram Contreras MD HEMATOLOGY ORDERAB LES Performing Organization Address [facility] Co de Phone Number [facility] [place] [address] * (ABNORMAL) APTT (07/24/2017 1:00 AM EDT) PTT 102(H) 25 - [address] [facility] Comment: The recommended therapeutic range for full dose, unfractionated heparin at [facility] is 80 ? [...] MD HEMATOLOGY ORDERAB LES Performing Organization Address [facility] de Phone Number [facility] [place] [address] * (ABNORMAL) Basic Metabolic Panel (non-fasting) (07/24/2017 1:00 AM EDT) Glucose Lvl 103 65 - 199 mg/dL [facility] Comment:Diabetes: >=200 mg/d L plus symptoms BUN 17 10 - 20 mg/dL [facility] Creatinine 0.70(L) 0.80 - 1.50 mg/dL [facility] Comment: Please note that the pediatric reference intervals supplied above were not validated at [facility]. Results from pediatric patients should be interpreted in conjunction to the patient's age, height and muscle mass. Sodium 143 135 - 145 mmol/L [facility] Potassium 4.0 3.5 - 5.0 mmol/L [facility] Comment: Please note: ??Patients with WBC >100,000 may have falsely elevated Potassium levels. ??For accurate Potassium quantification in these patients send serum separator tube (gold top) for subsequent determinations. ??Contact the Clinical Chemistry Laboratory if there are any questions. Chloride 104 98 - 107 mmol/L [facility] CO2 27 22 - 31 mmol/L [facility] Anion Gap 12 5 - 15 mmol/L [facility] Calcium 8.7 8.5 - 10.5 mg/dL [facility] Estimated GFR >60 >=60 [facility] Comment: This estimated GFR (eGFR) [...] the following links into your internet browser. [email or web address] Blood specimen (specimen) 07/24/2017 1:00 AM EDT 07/24/2017 1:14 AM EDT Narrative Resulting Agency Comment Spec In Lab Sriram Contreras MD CHEMISTRY ORDERABL ES [facility] [place] [address] * POCT Glucose (07/23/2017 11:53 PM EDT) POC Glucose 95 65 - 199 mg/dL [facility] Comment: Supplemental ranges: <140 mg/dL before meals <180 mg/dL all other times of the day Blood specimen (specimen) 07/23/2017 11:53 PM EDT 07/23/2017 11:53 PM EDT Sriram Contreras MD POINT OF CARE TEST ORDERABLES Performing Organization Address [facility] Co de Phone Number [facility] [place] [address] * POCT Glucose (07/23/2017 7:52 PM EDT) POC Glucose 91 65 - 199 mg/dL [facility] Comment: Supplemental ranges: <140 mg/dL before meals <180 mg/dL all other times of the day Blood specimen (specimen) 07/23/2017 7:52 PM EDT 07/23/2017 7:52 PM EDT Sriram Contreras MD POINT OF CARE TEST ORDERABLES Performing Organization Address [facility] Co de Phone Number [facility] [place] [address] * POCT Glucose (07/23/2017 2:56 PM EDT) POC Glucose 115 65 - 199 mg/dL [facility] Comment: Supplemental ranges: <140 mg/dL before meals <180 mg/dL all other times of the day Blood specimen (specimen) 07/23/2017 2:56 PM EDT 07/23/2017 2:56 PM EDT Sriram Contreras MD POINT OF CARE TEST ORDERABLES Performing Organization Address [facility] Co de Phone Number [facility] [place] [address] * (ABNORMAL) APTT (07/23/2017 2:55 PM EDT) PTT 101(H) 25 - [address] [facility] Comment: The recommended therapeutic range for full dose, unfractionated heparin at [facility] is 80 ? [...] MD HEMATOLOGY ORDERAB LES Performing Organization Address [facility] Co de Phone Number [facility] [place] [address] * POCT Glucose (07/23/2017 12:07 PM EDT) POC Glucose 97 65 - 199 mg/dL [facility] Comment: Supplemental ranges: <140 mg/dL before meals <180 mg/dL all other times of the day Blood specimen (specimen) 07/23/2017 12:07 PM EDT 07/23/2017 12:07 PM EDT Sriram Contreras MD POINT OF CARE TEST ORDERABLES Performing Organization Address [facility] Phone Number [facility] [place] [address] * (ABNORMAL) APTT (07/23/2017 8:27 AM EDT) PTT 95(H) 25 - [address] [facility] Comment: The recommended therapeutic range for full dose, unfractionated heparin at [facility] is 80 ? [...] MD HEMATOLOGY ORDERAB LES Performing Organization Address [facility] de Phone Number [facility] [place] [address] * POCT Glucose (07/23/2017 8:02 AM EDT) POC Glucose 103 65 - 199 mg/dL [facility] Comment: Supplemental ranges: <140 mg/dL before meals <180 mg/dL all other times of the day Blood specimen (specimen) 07/23/2017 8:02 AM EDT 07/23/2017 8:02 AM EDT Sriram Contreras MD POINT OF CARE TEST ORDERABLES [facility] [place] [address] * (ABNORMAL) BLOOD GAS 2 ARTERIAL (07/23/2017 6:32 AM EDT) pH Art 7.41 7.35 - 7.45 [facility] pCO2 Art 37 35 - [address] [facility] pO2 Art 60(L) 85 - [address] [facility] HCO3 Art 22.6 20.0 - 26.0 mmol/L [facility] BE Art -2.0 -3.0 - 3.0 mmol/L [facility] Hgb Blood Gas 12.7(L) 13.7 - 16.5 gm/dL [facility] O2HB Art 90.3(L) 94.0 - 97.0 % [facility] COHB Art 0.3 % [facility] Comment: Nonsmokers: 0.5-1.5% COHB Smokers: Variable, but usually less than 10% Toxic: 20-30% COHB Lethal: Greater than 60% COHB METHB Art 0.5 <=1.5 % [facility] Na Whole Blood 138 135 - 145 mmol/L [facility] K Whole Blood 3.7 3.5 - 5.0 mmol/L [facility] Comment: Please note: Patients with WBC >100,000 may have falsely elevated Potassium levels. Contact the Clinical Chemistry Laboratory if there are any questions. ICa Whole Blood 1.15(L) 1.15 - 1.33 mmol/L [facility] Comment: Note: ??Total bilirubin higher than 20 mg/dL may lead to falsely low ionized calcium. CL Whole Blood 109(H) 98 - 107 mmol/L [facility] Gluc Whole Bld 122 65 - 199 mg/dL [facility] Comment:Diabetes: >=200 mg/d L plus symptoms. Lactate WB 1.4 0.5 - 2.2 mmol/L [facility] FIO2 Art 30 % [facility] PF Ratio Art 200 [facility] Blood specimen (specimen) 07/23/2017 6:32 AM EDT 07/23/2017 6:32 AM EDT Sriram Contreras MD CHEMISTRY ORDERABL ES Performing Organization Address [facility] Co de Phone Number [facility] [place] [address] * Potassium (07/23/2017 4:15 AM EDT) Potassium 4.1 3.5 - 5.0 mmol/L [facility] Comment: Please note: ??Patients with [...] MD CHEMISTRY ORDERABL ES Performing Organization Address [facility] Co de Phone Number [facility] [place] [address] * POCT Glucose (07/23/2017 3:50 AM EDT) POC Glucose 126 65 - 199 mg/dL [facility] Comment: Supplemental ranges: <140 mg/dL before meals <180 mg/dL all other times of the day Blood specimen (specimen) 07/23/2017 3:50 AM EDT 07/23/2017 3:50 AM EDT Sriram Contreras MD POINT OF CARE TEST ORDERABLES Performing Organization Address City/[facility]/ZIP Co de Phone Number [facility] [place] [address] * (ABNORMAL) APTT (07/23/2017 1:53 AM EDT) PTT 119(H) 25 - [address] [facility] Comment: The recommended therapeutic range for full dose, unfractionated heparin at [facility] is 80 ? [...] MD HEMATOLOGY ORDERAB LES Performing Organization Address [facility] Co de Phone Number [facility] [place] [address] * (ABNORMAL) Differential, Automated (07/23/2017 12:45 AM EDT) Pathologist [facility] Neutrophils % 63.2 % [facility] Neutr Abs (ANC) 6.47(H) 1.70 - 6.10 x10(3)/mc L [facility] Lymphocytes % 20.9 % [facility] Lymphocytes Abs 2.1 0.9 - 3.2 x10(3)/mc L [facility] Monocytes % 7.6 % [facility] Monocyte Abs 0.8 0.3 - 0.9 x10(3)/mc L [facility] Eosinophils % 2.8 % [facility] [facility] Eosinophils Abs 0.3 0.0 - 0.4 x10(3)/mc L [facility] Basophils % 0.7 % [facility] Basophils Abs 0.1 0.0 - 0.1 x10(3)/mc L [facility] Immature Gran % 4.80 % [facility] Comment: Immature granulocytes(IG's)percentage and absolute count will include metamyelocytes, myelocytes, and promyelocytes. Blood smears from CBCs yielding IG's will be scanned manually for concordance. If this scan disagrees with the automated IG or if promyelocytes are noted, a manual differential will be performed. Patti Gran Abs 0.49(H) 0.00 - 0.04 x10(3)/mc L [facility] Blood specimen (specimen) 07/23/2017 12:45 AM EDT 07/23/2017 12:51 AM EDT Narrative Resulting Agency Comment Spec In Lab Sriram Contreras MD HEMATOLOGY ORDERAB LES [facility] [place] [address] * (ABNORMAL) Hemogram (07/23/2017 12:45 AM EDT) WBC 10.2(H) 4.0 - 9.5 x10(3)/[facility] LABORATORY RBC 3.62(L) 4.58 - 5.54 x10(6)/[facility] Hemoglobin 11.1(L) 13.7 - 16.5 gm/dL [facility] Hematocrit 33.5(L) 40.5 - 48.5 % [facility] MCV 92.5 82.9 - 93.[address] [facility] MCH 30.7 27.5 - 32.[address] [facility] MCHC 33.1 32.0 - 35.7 gm/dL [facility] Platelets 165 145 - 357 x10(3)/[facility] RDWSD 46.6(H) 36.0 - 45.[address] [facility] RDWCV 13.7 11.4 - 13.8 % [facility] MPV 9.9 7.6 - 12.[address] [facility] nRBC % Auto 0.0 % [facility] nRBC Abs Auto 0.000 0.000 - 0.000 x10(3)/mcL [facility] Blood specimen (specimen) 07/23/2017 12:45 AM EDT 07/23/2017 12:51 AM EDT Narrative Resulting Agency Comment Spec In Lab Sriram Contreras MD HEMATOLOGY ORDERAB LES [facility] [place] [address] * (ABNORMAL) Basic Metabolic Panel (non-fasting) (07/23/2017 12:45 AM EDT) Glucose Lvl 127 65 - 199 mg/dL [facility] Comment:Diabetes: >=200 mg/d L plus symptoms BUN 20 10 - 20 mg/dL [facility] Creatinine 0.65(L) 0.80 - 1.50 mg/dL [facility] Comment: Please note that the pediatric reference intervals supplied above were not validated at [facility]. Results from pediatric patients should be interpreted in conjunction to the patient's age, height and muscle mass. Sodium 142 135 - 145 mmol/L [facility] Potassium 3.7 3.5 - 5.0 mmol/L [facility] Comment: Please note: ??Patients with WBC >100,000 may have falsely elevated Potassium levels. ??For accurate Potassium quantification in these patients send serum separator tube (gold top) for subsequent determinations. ??Contact the Clinical Chemistry Laboratory if there are any questions. Chloride 105 98 - 107 mmol/L [facility] CO2 26 22 - 31 mmol/L [facility] Anion Gap 11 5 - 15 mmol/L [facility] Calcium 8.3(L) 8.5 - 10.5 mg/dL [facility] Estimated GFR >60 >=60 [facility] Comment: This estimated GFR (eGFR) [...] the following links into your internet browser. [email or web address] Blood specimen (specimen) 07/23/2017 12:45 AM EDT 07/23/2017 12:51 AM EDT Narrative Resulting Agency Comment Spec In Lab Sriram Contreras MD CHEMISTRY ORDERABL ES Performing Organization Address [facility] Co de Phone Number [facility] [place] [address] * POCT Glucose (07/22/2017 11:59 PM EDT) POC Glucose 113 65 - 199 mg/dL [facility] Comment: Supplemental ranges: <140 mg/dL before meals <180 mg/dL all other times of the day Blood specimen (specimen) 07/22/2017 11:59 PM EDT 07/22/2017 11:59 PM EDT Sriram Contreras MD POINT OF CARE TEST ORDERABLES Performing Organization Address [facility] Co de Phone Number [facility] [place] [address] * POCT Glucose (07/22/2017 8:07 PM EDT) POC Glucose 111 65 - 199 mg/dL [facility] Comment: Supplemental ranges: <140 mg/dL before meals <180 mg/dL all other times of the day Blood specimen (specimen) 07/22/2017 8:07 PM EDT 07/22/2017 8:07 PM EDT Sriram Contreras MD POINT OF CARE TEST ORDERABLES Performing Organization Address [facility] Co de Phone Number [facility] [place] [address] * POCT Glucose (07/22/2017 4:00 PM EDT) POC Glucose 112 65 - 199 mg/dL [facility] Comment: Supplemental ranges: <140 mg/dL before meals <180 mg/dL all other times of the day Blood specimen (specimen) 07/22/2017 4:00 PM EDT 07/22/2017 4:00 PM EDT Sriram Contreras MD POINT OF CARE TEST ORDERABLES Performing Organization Address City/[facility] Co de Phone Number [facility] [place] [address] * (ABNORMAL) APTT (07/22/2017 4:00 PM EDT) PTT 92(H) 25 - [address] [facility] Comment: The recommended therapeutic range for full dose, unfractionated heparin at [facility] is 80 ? [...] MD HEMATOLOGY ORDERAB LES Performing Organization Address [facility] Co de Phone Number [facility] [place] [address] * POCT Glucose (07/22/2017 11:45 AM EDT) POC Glucose 111 65 - 199 mg/dL [facility] Comment: Supplemental ranges: <140 mg/dL before meals <180 mg/dL all other times of the day Blood specimen (specimen) 07/22/2017 11:45 AM EDT 07/22/2017 11:45 AM EDT Sriram Contreras MD POINT OF CARE TEST ORDERABLES Performing Organization Address City/State/[facility] Co de Phone Number [facility] [place] [address] * (ABNORMAL) APTT (07/22/2017 8:30 AM EDT) PTT 83(H) 25 - [address] [facility] Comment: The recommended therapeutic range for full dose, unfractionated heparin at [facility] is 80 ? [...] MD HEMATOLOGY ORDERAB LES Performing Organization Address [facility] de Phone Number [facility] [place] [address] * POCT Glucose (07/22/2017 8:28 AM EDT) [facility] POC Glucose 118 65 - 199 mg/dL [facility] Comment: Supplemental ranges: <140 mg/dL before meals <180 mg/dL all other times of the day Blood specimen (specimen) 07/22/2017 8:28 AM EDT 07/22/2017 8:28 AM EDT Sriram Contreras MD POINT OF CARE TEST ORDERABLES Performing Organization Address [facility] Co de Phone Number [facility] [place] [address] * (ABNORMAL) BLOOD GAS 2 ARTERIAL (07/22/2017 8:27 AM EDT) pH Art 7.42 7.35 - 7.45 [facility] pCO2 Art 39 35 - [address] [facility] pO2 Art 78(L) 85 - [address] [facility] HCO3 Art 24.8 20.0 - 26.0 mmol/L [facility] BE Art 0.3 -3.0 - 3.0 mmol/L [facility] Hgb Blood Gas 13.4(L) 13.7 - 16.5 gm/dL [facility] O2HB Art 94.2 94.0 - 97.0 % [facility] COHB Art 0.3 % [facility] Comment: Nonsmokers: 0.5-1.5% COHB Smokers: Variable, but usually less than 10% Toxic: 20-30% COHB Lethal: Greater than 60% COHB METHB Art 0.6 <=1.5 % [facility] Na Whole Blood 140 135 - 145 mmol/L [facility] K Whole Blood 3.8 3.5 - 5.0 mmol/L [facility] Comment: Please note: Patients with WBC >100,000 may have falsely elevated Potassium levels. Contact the Clinical Chemistry Laboratory if there are any questions. ICa Whole Blood 1.21 1.15 - 1.33 mmol/L [facility] Comment: Note: ??Total bilirubin higher than 20 mg/dL may lead to falsely low ionized calcium. CL Whole Blood 107 98 - 107 mmol/L [facility] Gluc Whole Bld 130 65 - 199 mg/dL [facility] Comment:Diabetes: >=200 mg/d L plus symptoms. Lactate WB 1.6 0.5 - 2.2 mmol/L [facility] FIO2 Art 40 % [facility] PF Ratio Art 195 [facility] Blood specimen (specimen) 07/22/2017 8:27 AM EDT 07/22/2017 8:27 AM EDT Sriram Contreras MD CHEMISTRY ORDERABL ES [facility] [place] [address] * (ABNORMAL) Differential, Automated (07/22/2017 3:10 AM EDT) Neutrophils % 72.0 % [facility] Neutr Abs (ANC) 8.75(H) 1.70 - 6.10 x10(3)/[facility] LABORATORY Lymphocytes % 15.0 % [facility] Lymphocytes Abs 1.8 0.9 - 3.2 x10(3)/[facility] LAB[facility]ATORY Monocytes % 8.0 % [facility] Monocyte Abs 1.0(H) 0.3 - 0.9 x10(3)/[facility] Eosinophils % 2.4 % [facility] Eosinophils Abs 0.3 0.0 - 0.4 x10(3)/[facility] Basophils % 0.3 % [facility] Basophils Abs 0.0 0.0 - 0.1 x10(3)/[facility] Immature Gran % 2.30 % [facility] Comment: Immature granulocytes(IG's)percentage and absolute count will include metamyelocytes, myelocytes, and promyelocytes. Blood smears from CBCs yielding IG's will be scanned manually for concordance. If this scan disagrees with the automated IG or if promyelocytes are noted, a manual differential will be performed. Patti Gran Abs 0.28(H) 0.00 - 0.04 x10(3)/[facility] LAB[facility]ATORY Blood specimen (specimen) 07/22/2017 3:10 AM EDT 07/22/2017 3:15 AM EDT Narrative Resulting Agency Comment Spec In Lab Sriram Contreras MD HEMATOLOGY ORDERAB LES [facility] [place] [address] * (ABNORMAL) Hemogram (07/22/2017 3:10 AM EDT) WBC 12.2(H) 4.0 - 9.5 x10(3)/[facility] LABORATORY RBC 4.05(L) 4.58 - 5.54 x10(6)/[facility] Hemoglobin 12.5(L) 13.7 - 16.5 gm/dL [facility] Hematocrit 37.9(L) 40.5 - 48.5 % [facility] MCV 93.6(H) 82.9 - 93.1 [facility] MCH 30.9 27.5 - 32.[address] [facility] MCHC 33.0 32.0 - 35.7 gm/dL [facility] Platelets 168 145 - 357 x10(3)/[facility]ORY RDWSD 48.9(H) 36.0 - 45.0 [facility] RDWCV 14.1(H) 11.4 - 13.8 % [facility] MPV 10.2 7.6 - 12.9 [facility] nRBC % Auto 0.0 % [facility] nRBC Abs Auto 0.000 0.000 - 0.000 x10(3)/[facility] Blood specimen (specimen) 07/22/2017 3:10 AM EDT 07/22/2017 3:15 AM EDT Narrative Resulting Agency Comment Spec In Lab Sriram Contreras MD HEMATOLOGY ORDERAB LES Performing Organization Address City/State/[facility] Co de Phone Number [facility] [place] [address] * (ABNORMAL) APTT (07/22/2017 3:10 AM EDT) [facility] PTT 89(H) 25 - [address] [facility] Comment: The recommended therapeutic range for full dose, unfractionated heparin at [facility] is 80 ? 114 seconds. The use of the anti-Xa (heparin) level rather than the PTT is recommended for monitoring anticoagulation intensity in critically ill patients receiving unfractionated heparin by continuous IV infusion. Blood specimen (specimen) 07/22/2017 3:10 AM EDT 07/22/2017 3:15 AM EDT Narrative Resulting Agency Comment Spec In Lab Sriram Contreras MD HEMATOLOGY ORDERAB LES [facility] [place] [address] * (ABNORMAL) Basic Metabolic Panel (non-fasting) (07/22/2017 3:10 AM EDT) Glucose Lvl 121 65 - 199 mg/dL [facility] Comment:Diabetes: >=200 mg/d L plus symptoms BUN 23(H) 10 - 20 mg/dL [facility] Creatinine 0.76(L) 0.80 - 1.50 mg/dL [facility] Comment: Please note that the pediatric reference intervals supplied above were not validated at [facility]. Results from pediatric patients should be interpreted in conjunction to the patient's age, height and muscle mass. Sodium 144 135 - 145 mmol/L [facility] Potassium 3.9 3.5 - 5.0 mmol/L [facility] Comment: Please note: ??Patients with WBC >100,000 may have falsely elevated Potassium levels. ??For accurate Potassium quantification in these patients send serum separator tube (gold top) for subsequent determinations. ??Contact the Clinical Chemistry Laboratory if there are any questions. Chloride 106 98 - 107 mmol/L [facility] CO2 25 22 - 31 mmol/L [facility] Anion Gap 13 5 - 15 mmol/L [facility] Calcium 8.3(L) 8.5 - 10.5 mg/dL [facility] Estimated GFR >60 >=60 [facility] Comment: This estimated GFR (eGFR) [...] the following links into your internet browser. [email or web address] Blood specimen (specimen) 07/22/2017 3:10 AM EDT 07/22/2017 3:15 AM EDT Narrative Resulting Agency Comment Spec In Lab Sriram Contreras MD CHEMISTRY ORDERABL ES Performing Organization Address [facility] de Phone Number [facility] [place] [address] * POCT Glucose (07/22/2017 3:08 AM EDT) POC Glucose 109 65 - 199 mg/dL [facility] Comment: Supplemental ranges: <140 mg/dL before meals <180 mg/dL all other times of the day Blood specimen (specimen) 07/22/2017 3:08 AM EDT 07/22/2017 3:08 AM EDT Sriram Contreras MD POINT OF CARE TEST ORDERABLES Performing Organization Address [facility] de Phone Number [facility] [place] [address] * POCT Glucose (07/21/2017 11:52 PM EDT) POC Glucose 135 65 - 199 mg/dL [facility] Comment: Supplemental ranges: <140 mg/dL before meals <180 mg/dL all other times of the day Blood specimen (specimen) 07/21/2017 11:52 PM EDT 07/21/2017 11:52 PM EDT Sriram Contreras MD POINT OF CARE TEST ORDERABLES Performing Organization Address [facility] Phone Number [facility] [place] [address] * EKG 12 Lead (07/21/2017 10:42 PM EDT) Ventricular rate 75 BPM MUSE SYSTEM Atrial Rate 258 BPM MUSE SYSTEM QRS Duration 86 ms MUSE SYSTEM Q-T Interval 400 ms MUSE SYSTEM QTC Calculated (Bezet) 446 ms MUSE SYSTEM Calculated R [place] 61 degrees MUSE SYSTEM Calculated T [place] 136 degrees MUSE SYSTEM INTERPRETATION Atrial fibrillation with premature ventricular or aberrantly conducted complexes Nonspecific T wave abnormality Abnormal ECG When compared with ECG of 20-JUL-2017 20:40, Nonspecific T wave abnormality now evident in Anterior leads Confirmed by MD REAGAN SALVATORE ([id number]) on 07/22/2017 10:00:08 AM MUSE SYSTEM 07/21/2017 10:4 2 PM EDT 07/22/2017 10:00 AM EDT Sriram Contreras MD ECG ORDERABLES Performing Organization Address [facility] Co de Phone Number MUSE SYSTEM * Magnesium (07/21/2017 10:35 PM EDT) Pathologist [facility] Magnesium 0.80 0.69 - 1.07 mmol/L [facility] Blood specimen (specimen) 07/21/2017 10:35 PM EDT 07/21/2017 10:40 PM EDT Narrative Resulting Agency Comment Spec In Lab Sriram Contreras MD CHEMISTRY ORDERABL ES Performing Organization Address [facility] Co de Phone Number [facility] [place] [address] * (ABNORMAL) Basic Metabolic Panel (non-fasting) (07/21/2017 10:35 PM EDT) Pathologist [facility] Glucose Lvl 135 65 - 199 mg/dL [facility] Comment:Diabetes: >=200 mg/d L plus symptoms BUN 23(H) 10 - 20 mg/dL [facility] Creatinine 0.88 0.80 - 1.50 mg/dL [facility] Comment: Please note that the pediatric reference intervals supplied above were not validated at [facility]. Results from pediatric patients should be interpreted in conjunction to the patient's age, height and muscle mass. Sodium 144 135 - 145 mmol/L [facility] Potassium 4.0 3.5 - 5.0 mmol/L [facility] Comment: Please note: ??Patients with WBC >100,000 may have falsely elevated Potassium levels. ??For accurate Potassium quantification in these patients send serum separator tube (gold top) for subsequent determinations. ??Contact the Clinical Chemistry Laboratory if there are any questions. Chloride 107 98 - 107 mmol/L [facility] CO2 25 22 - 31 mmol/L [facility] Anion Gap 12 5 - 15 mmol/L [facility] Calcium 8.7 8.5 - 10.5 mg/dL [facility] Estimated GFR >60 >=60 [facility] Comment: This estimated GFR (eGFR) [...] the following links into your internet browser. [email or web address] Blood specimen (specimen) 07/21/2017 10:35 PM EDT 07/21/2017 10:40 PM EDT Narrative Resulting Agency Comment Spec In Lab Sriram Contreras MD CHEMISTRY ORDERABL ES [facility] [place] [address] * (ABNORMAL) APTT (07/21/2017 9:10 PM EDT) [facility] PTT 87(H) 25 - [address] [facility] Comment: The recommended therapeutic range for full dose, unfractionated heparin at [facility] is 80 ? [...] MD HEMATOLOGY ORDERAB LES Performing Organization Address [facility] Co de Phone Number [facility] [place] [address] * POCT Glucose (07/21/2017 7:49 PM EDT) POC Glucose 117 65 - 199 mg/dL [facility] Comment: Supplemental ranges: <140 mg/dL before meals <180 mg/dL all other times of the day Blood specimen (specimen) 07/21/2017 7:49 PM EDT 07/21/2017 7:49 PM EDT Sriram Contreras MD POINT OF CARE TEST ORDERABLES Performing Organization Address [facility] Co de Phone Number [facility] [place] [address] * POCT Glucose (07/21/2017 4:10 PM EDT) POC Glucose 116 65 - 199 mg/dL [facility] Comment: Supplemental ranges: <140 mg/dL before meals <180 mg/dL all other times of the day Blood specimen (specimen) 07/21/2017 4:10 PM EDT 07/21/2017 4:10 PM EDT Sriram Contreras MD POINT OF CARE TEST ORDERABLES Performing Organization Address [facility] Co de Phone Number [facility] [place] [address] * (ABNORMAL) APTT (07/21/2017 4:10 PM EDT) PTT 78(H) 25 - [address] [facility] Comment: The recommended therapeutic range for full dose, unfractionated heparin at [facility] is 80 ? [...] MD HEMATOLOGY ORDERAB LES Performing Organization Address [facility] de Phone Number [facility] [place] [address] * POCT Glucose (07/21/2017 12:04 PM EDT) POC Glucose 138 65 - 199 mg/dL [facility] Comment: Supplemental ranges: <140 mg/dL before meals <180 mg/dL all other times of the day Blood specimen (specimen) 07/21/2017 12:04 PM EDT 07/21/2017 12:04 PM EDT Sriram Contreras MD POINT OF CARE TEST ORDERABLES Performing Organization Address [facility] Phone Number [facility] [place] [address] * C. Difficile Screen (07/21/2017 9:00 AM EDT) C Diff Screen Negative Negative [facility] Comment: C. diff ??Negative Clostridium [...] - GEN ERAL ORDERABLES Performing Organization Address [facility] Co de Phone Number [facility] [place] [address] * Potassium (07/21/2017 8:30 AM EDT) Potassium 3.8 3.5 - 5.0 mmol/L [facility] Comment: Please note: ??Patients with [...] MD CHEMISTRY ORDERABL ES Performing Organization Address [facility] de Phone Number [facility] [place] [address] * (ABNORMAL) APTT (07/21/2017 8:30 AM EDT) PTT 63(H) 25 - [address] [facility] Comment: The recommended therapeutic range for full dose, unfractionated heparin at [facility] is 80 ? [...] MD HEMATOLOGY ORDERAB LES Performing Organization Address [facility] de Phone Number [facility] [place] [address] * POCT Glucose (07/21/2017 8:24 AM EDT) POC Glucose 131 65 - 199 mg/dL [facility] Comment: Supplemental ranges: <140 mg/dL before meals <180 mg/dL all other times of the day Blood specimen (specimen) 07/21/2017 8:24 AM EDT 07/21/2017 8:24 AM EDT Sriram Contreras MD POINT OF CARE TEST ORDERABLES [facility] [place] [address] * (ABNORMAL) BLOOD GAS 2 ARTERIAL (07/21/2017 7:42 AM EDT) pH Art 7.44 7.35 - 7.45 [facility] pCO2 Art 37 35 - [address] [facility] pO2 Art 72(L) 85 - [address] [facility] HCO3 Art 24.5 20.0 - 26.0 mmol/L [facility] BE Art 0.3 -3.0 - 3.0 mmol/L [facility] Hgb Blood Gas 14.0 13.7 - 16.5 gm/dL [facility] O2HB Art 93.8(L) 94.0 - 97.0 % [facility] COHB Art 0.3 % [facility] Comment: Nonsmokers: 0.5-1.5% COHB Smokers: Variable, but usually less than 10% Toxic: 20-30% COHB Lethal: Greater than 60% COHB METHB Art 0.5 <=1.5 % [facility] Na Whole Blood 143 135 - 145 mmol/L [facility] K Whole Blood 4.0 3.5 - 5.0 mmol/L [facility] Comment: Please note: Patients with WBC >100,000 may have falsely elevated Potassium levels. Contact the Clinical Chemistry Laboratory if there are any questions. ICa Whole Blood 1.22 1.15 - 1.33 mmol/L [facility] Comment: Note: ??Total bilirubin higher than 20 mg/dL may lead to falsely low ionized calcium. CL Whole Blood 111(H) 98 - 107 mmol/L [facility] Gluc Whole Bld 148 65 - 199 mg/dL [facility] Comment:Diabetes: >=200 mg/d L plus symptoms. Lactate WB 1.5 0.5 - 2.2 mmol/L [facility] FIO2 Art 40 % [facility] PF Ratio Art 180 [facility] Blood specimen (specimen) 07/21/2017 7:42 AM EDT 07/21/2017 7:42 AM EDT Sriram Contreras MD CHEMISTRY ORDERABL ES Performing Organization Address [facility] de Phone Number [facility] [place] [address] * POCT Glucose (07/21/2017 3:21 AM EDT) POC Glucose 116 65 - 199 mg/dL [facility] Comment: Supplemental ranges: <140 mg/dL before meals <180 mg/dL all other times of the day Blood specimen (specimen) 07/21/2017 3:21 AM EDT 07/21/2017 3:21 AM EDT Sriram Contreras MD POINT OF CARE TEST ORDERABLES Performing Organization Address [facility] Phone Number [facility] [place] [address] * Potassium (07/21/2017 3:20 AM EDT) Potassium 4.0 3.5 - 5.0 mmol/L [facility] Comment: Please note: ??Patients with [...] MD CHEMISTRY ORDERABL ES Performing Organization Address [facility] Phone Number [facility] [place] [address] * (ABNORMAL) APTT (07/21/2017 1:05 AM EDT) PTT 42(H) 25 - [address] [facility] Comment: The recommended therapeutic range for full dose, unfractionated heparin at [facility] is 80 ? 114 seconds. The use of the anti-Xa (heparin) level rather than the PTT is recommended for monitoring anticoagulation intensity in critically ill patients receiving unfractionated heparin by continuous IV infusion. Blood specimen (specimen) 07/21/2017 1:05 AM EDT 07/21/2017 1:08 AM EDT Narrative Resulting Agency Comment Spec In Lab Sriram Contreras MD HEMATOLOGY ORDERAB LES [facility] [place] [address] * (ABNORMAL) Differential, Automated (07/21/2017 12:25 AM EDT) Neutrophils % 75.8 % [facility] Neutr Abs (ANC) 7.59(H) 1.70 - 6.10 x10(3)/mc L [facility] Lymphocytes % 12.8 % [facility] Lymphocytes Abs 1.3 0.9 - 3.2 x10(3)/mc L [facility] Monocytes % 9.0 % [facility] Monocyte Abs 0.9 0.3 - 0.9 x10(3)/mc L [facility] Eosinophils % 1.1 % [facility] Eosinophils Abs 0.1 0.0 - 0.4 x10(3)/mc L [facility] Basophils % 0.3 % [facility] Basophils Abs 0.0 0.0 - 0.1 x10(3)/mc L [facility] Immature Gran % 1.00 % [facility] Comment: Immature granulocytes(IG's)percentage and absolute count will include metamyelocytes, myelocytes, and promyelocytes. Blood smears from CBCs yielding IG's will be scanned manually for concordance. If this scan disagrees with the automated IG or if promyelocytes are noted, a manual differential will be performed. Patti Gran Abs 0.10(H) 0.00 - 0.04 x10(3)/mc L [facility] Blood specimen (specimen) 07/21/2017 12:25 AM EDT 07/21/2017 12:48 AM EDT Narrative Resulting Agency Comment Spec In Lab Sriram Contreras MD HEMATOLOGY ORDERAB LES Performing Organization Address City/State/[facility] Co de Phone Number [facility] [place] [address] * (ABNORMAL) Hemogram (07/21/2017 12:25 AM EDT) WBC 10.0(H) 4.0 - 9.5 x10(3)/[facility] LABORAT[facility] RBC 4.24(L) 4.58 - 5.54 x10(6)/[facility] Hemoglobin 13.2(L) 13.7 - 16.5 gm/dL [facility] Hematocrit 39.4(L) 40.5 - 48.5 % [facility] MCV 92.9 82.9 - 93.1 [facility]ORY MCH 31.1 27.5 - 32.[address] [facility] MCHC 33.5 32.0 - 35.7 gm/dL [facility] Platelets 163 145 - 357 x10(3)/[facility] RDWSD 48.0(H) 36.0 - 45.0 [facility] RDWCV 14.1(H) 11.4 - 13.8 % [facility] MPV 10.2 7.6 - 12.9 [facility] nRBC % Auto 0.0 % [facility] nRBC Abs Auto 0.000 0.000 - 0.000 x10(3)/[facility] Blood specimen (specimen) 07/21/2017 12:25 AM EDT 07/21/2017 12:48 AM EDT Narrative Resulting Agency Comment Spec In Lab Sriram Contreras MD HEMATOLOGY ORDERAB LES [facility] [place] [address] * (ABNORMAL) Basic Metabolic Panel (non-fasting) (07/21/2017 12:25 AM EDT) Glucose Lvl 132 65 - 199 mg/dL [facility] Comment:Diabetes: >=200 mg/d L plus symptoms BUN 22(H) 10 - 20 mg/dL [facility] Creatinine 0.79(L) 0.80 - 1.50 mg/dL [facility] Comment: Please note that the pediatric reference intervals supplied above were not validated at [facility]. Results from pediatric patients should be interpreted in conjunction to the patient's age, height and muscle mass. Sodium 146(H) 135 - 145 mmol/L [facility] Potassium 3.8 3.5 - 5.0 mmol/L [facility] Comment: Please note: ??Patients with WBC >100,000 may have falsely elevated Potassium levels. ??For accurate Potassium quantification in these patients send serum separator tube (gold top) for subsequent determinations. ??Contact the Clinical Chemistry Laboratory if there are any questions. Chloride 110(H) 98 - 107 mmol/L [facility] CO2 25 22 - 31 mmol/L [facility] Anion Gap 11 5 - 15 mmol/L [facility] Calcium 8.5 8.5 - 10.5 mg/dL [facility] Estimated GFR >60 >=60 [facility] Comment: This estimated GFR (eGFR) [...] the following links into your internet browser. [email or web address] Blood specimen (specimen) 07/21/2017 12:25 AM EDT 07/21/2017 12:48 AM EDT Narrative Resulting Agency Comment Spec In Lab Sriram Contreras MD CHEMISTRY ORDERABL ES [facility] [place] [address] * (ABNORMAL) BLOOD GAS 2 ARTERIAL (07/21/2017 12:21 AM EDT) pH Art 7.44 7.35 - 7.45 [facility] pCO2 Art 37 35 - [address] [facility] pO2 Art 70(L) 85 - [address] [facility] HCO3 Art 24.1 20.0 - 26.0 mmol/L [facility] BE Art 0.1 -3.0 - 3.0 mmol/L [facility] Hgb Blood Gas 14.3 13.7 - 16.5 gm/dL [facility] O2HB Art 92.8(L) 94.0 - 97.0 % [facility] COHB Art 0.0 % [facility] Comment: Nonsmokers: 0.5-1.5% COHB Smokers: Variable, but usually less than 10% Toxic: 20-30% COHB Lethal: Greater than 60% COHB METHB Art 0.4 <=1.5 % [facility] Na Whole Blood 145 135 - 145 mmol/L [facility] K Whole Blood 3.9 3.5 - 5.0 mmol/L [facility] Comment: Please note: Patients with WBC >100,000 may have falsely elevated Potassium levels. Contact the Clinical Chemistry Laboratory if there are any questions. ICa Whole Blood 1.21 1.15 - 1.33 mmol/L [facility] Comment: Note: ??Total bilirubin higher than 20 mg/dL may lead to falsely low ionized calcium. CL Whole Blood 110(H) 98 - 107 mmol/L [facility] Gluc Whole Bld 132 65 - 199 mg/dL [facility] Comment:Diabetes: >=200 mg/d L plus symptoms. Lactate WB 1.1 0.5 - 2.2 mmol/L [facility] FIO2 Art 40 % [facility] PF Ratio Art 175 [facility] Temp Art 37.8 Celsius [facility] Blood specimen (specimen) 07/21/2017 12:21 AM EDT 07/21/2017 12:21 AM EDT Sriram Contreras MD CHEMISTRY ORDERABL ES Performing Organization Address [facility] Co de Phone Number [facility] [place] [address] * POCT Glucose (07/21/2017 12:00 AM EDT) POC Glucose 119 65 - 199 mg/dL [facility] Comment: Supplemental ranges: <140 mg/dL before meals <180 mg/dL all other times of the day Blood specimen (specimen) 07/21/2017 07/21/2017 Sriram Contreras MD POINT OF CARE TEST ORDERABLES Performing Organization Address [facility] Co [place] Phone Number [facility] [place] [address] * Potassium (07/20/2017 9:50 PM EDT) Potassium 4.1 3.5 - 5.0 mmol/L [facility] Comment: Please note: ??Patients with [...] MD CHEMISTRY ORDERABL ES Performing Organization Address [facility] Co de Phone Number [facility] [place] [address] * EKG 12 Lead (07/20/2017 8:40 PM EDT) [facility] Ventricular rate 77 BPM MUSE SYSTEM Atrial Rate 394 BPM MUSE SYSTEM QRS Duration 86 ms MUSE SYSTEM Q-T Interval 396 ms MUSE SYSTEM QTC Calculated (Bezet) 448 ms MUSE SYSTEM Calculated R [place] 73 degrees MUSE SYSTEM Calculated T [place] 127 degrees MUSE SYSTEM INTERPRETATION Atrial fibrillation Nonspecific ST abnormality Abnormal ECG When compared with ECG of 19-JUL-2017 16:55, Nonspecific T wave abnormality no longer evident in Inferior leads T wave inversion now evident in Lateral leads Confirmed by MD DUSTY, EDI ([id number]) on 07/21/2017 8:04:57 PM MUSE SYSTEM 07/20/2017 8:40 PM EDT 07/21/2017 8:04 PM EDT Biju Aguero APRN ECG ORDERABLES Performing Organization Address [facility] Co de Phone Number MUSE SYSTEM * POCT Glucose (07/20/2017 7:28 PM EDT) [facility] POC Glucose 126 65 - 199 mg/dL [facility] Comment: Supplemental ranges: <140 mg/dL before meals <180 mg/dL all other times of the day Blood specimen (specimen) 07/20/2017 7:28 PM EDT 07/20/2017 7:28 PM EDT Sriram Contreras MD POINT OF CARE TEST ORDERABLES Performing Organization Address [facility] Co de Phone Number [facility] [place] [address] * (ABNORMAL) Differential, Automated (07/20/2017 5:15 PM EDT) [facility] Neutrophils % 79.7 % [facility] Neutr Abs (ANC) 8.01(H) 1.70 - 6.10 x10(3)/mc L [facility] Lymphocytes % 10.4 % [facility] Lymphocytes Abs 1.0 0.9 - 3.2 x10(3)/[facility] LABORATORY Monocytes % 8.0 % [facility] Monocyte Abs 0.8 0.3 - 0.9 x10(3)/[facility]ORY Eosinophils % 0.7 % [facility] Eosinophils Abs 0.1 0.0 - 0.4 x10(3)/[facility] Basophils % 0.2 % [facility] Basophils Abs 0.0 0.0 - 0.1 x10(3)/[facility] Immature Gran % 1.00 % [facility] Comment: Immature granulocytes(IG's)percentage and absolute count will include metamyelocytes, myelocytes, and promyelocytes. Blood smears from CBCs yielding IG's will be scanned manually for concordance. If this scan disagrees with the automated IG or if promyelocytes are noted, a manual differential will be performed. Patti Gran Abs 0.10(H) 0.00 - 0.04 x10(3)/[facility] Blood specimen (specimen) 07/20/2017 5:15 PM EDT 07/20/2017 5:26 PM EDT Narrative Resulting Agency Comment Spec In Lab Sriram Contreras MD HEMATOLOGY ORDERAB LES Performing Organization Address City/State/[facility] Co de Phone Number [facility] [place] [address] * (ABNORMAL) Hemogram (07/20/2017 5:15 PM EDT) WBC 10.0(H) 4.0 - 9.5 x10(3)/[facility] LABORATORY RBC 4.28(L) 4.58 - 5.54 x10(6)/[facility] Hemoglobin 13.3(L) 13.7 - 16.5 gm/dL [facility] Hematocrit 39.9(L) 40.5 - 48.5 % [facility] MCV 93.2(H) 82.9 - 93.[address] [facility] MCH 31.1 27.5 - 32.[address] [facility] MCHC 33.3 32.0 - 35.7 gm/dL [facility] Platelets 163 145 - 357 x10(3)/[facility]ORY RDWSD 47.7(H) 36.0 - 45.[address] [facility] RDWCV 14.1(H) 11.4 - 13.8 % [facility] MPV 10.1 7.6 - 12.9 [facility] nRBC % Auto 0.0 % [facility] nRBC Abs Auto 0.000 0.000 - 0.000 x10(3)/[facility] Blood specimen (specimen) 07/20/2017 5:15 PM EDT 07/20/2017 5:26 PM EDT Narrative Resulting Agency Comment Spec In Lab Sriram oCntreras MD HEMATOLOGY ORDERAB LES Performing Organization Address [facility] Co de Phone Number [facility] [place] [address] * APTT (07/20/2017 5:15 PM EDT) [facility] Signature PTT 28 25 - [address] [facility] Comment: The recommended therapeutic range for full dose, unfractionated heparin at [facility] is 80 ? [...] MD HEMATOLOGY ORDERAB LES Performing Organization Address City/[facility]/ZIP Co de Phone Number [facility] [place] [address] * Magnesium (07/20/2017 4:50 PM EDT) Magnesium 1.00 0.69 - 1.07 mmol/L [facility] Blood specimen (specimen) 07/20/2017 4:50 PM EDT 07/20/2017 5:10 PM EDT Narrative Resulting Agency Comment Spec In Lab Sylvia Vaughn MD CHEMISTRY ORDERABLES [facility] [place] [address] * (ABNORMAL) Basic Metabolic Panel (non-fasting) (07/20/2017 4:50 PM EDT) Glucose Lvl 143 65 - 199 mg/dL [facility] Comment:Diabetes: >=200 mg/d L plus symptoms BUN 23(H) 10 - 20 mg/dL [facility] Creatinine 0.85 0.80 - 1.50 mg/dL [facility] Comment: Please note that the pediatric reference intervals supplied above were not validated at [facility]. Results from pediatric patients should be interpreted in conjunction to the patient's age, height and muscle mass. Sodium 146(H) 135 - 145 mmol/L [facility] Potassium 3.9 3.5 - 5.0 mmol/L [facility] Comment: Please note: ??Patients with WBC >100,000 may have falsely elevated Potassium levels. ??For accurate Potassium quantification in these patients send serum separator tube (gold top) for subsequent determinations. ??Contact the Clinical Chemistry Laboratory if there are any questions. Chloride 110(H) 98 - 107 mmol/L [facility] CO2 25 22 - 31 mmol/L [facility] Anion Gap 11 5 - 15 mmol/L [facility] Calcium 8.5 8.5 - 10.5 mg/dL [facility] Estimated GFR >60 >=60 [facility] Comment: This estimated GFR (eGFR) [...] the following links into your internet browser. [email or web address] Blood specimen (specimen) 07/20/2017 4:50 PM EDT 07/20/2017 5:10 PM EDT Narrative Resulting Agency Comment Spec In Lab Sylvia Vaughn MD CHEMISTRY ORDERABLES Performing Organization Address [facility] Co de Phone Number [facility] [place] [address] * POCT Glucose (07/20/2017 3:41 PM EDT) POC Glucose 138 65 - 199 mg/dL [facility] Comment: Supplemental ranges: <140 mg/dL before meals <180 mg/dL all other times of the day Blood specimen (specimen) 07/20/2017 3:41 PM EDT 07/20/2017 3:41 PM EDT Sriram Contreras MD POINT OF CARE TEST ORDERABLES Performing Organization Address [facility] Co de Phone Number [facility] [place] [address] * CTA Chest for Pulmonary Embolus w [...] suggestive of normal upper respiratory yung (A) [facility] Gram Stain Many White Blood Cells seen Few squamous epithelial cells seen Many Gram Negative Rods seen Many mixed bacterial morphotypes suggestive of normal upper respiratory yung (A) [facility] Organism Enterobacter aerogenes(A) [facility] Organism Gram Negative Rods(A) [facility] Specimen from trachea obtained by [...] - GEN ERAL ORDERABLES Performing Organization Address City/[facility]/ZIP Co de Phone Number [facility] [place] [address] * POCT Glucose (07/20/2017 11:45 AM EDT) Pathologist [facility] POC Glucose 125 65 - 199 mg/dL [facility] Comment: Supplemental ranges: <140 mg/dL before meals <180 mg/dL all other times of the day Blood specimen (specimen) 07/20/2017 11:45 AM EDT 07/20/2017 11:45 AM EDT Sriram Contreras MD POINT OF CARE TEST ORDERABLES Performing Organization Address [facility] Co de Phone Number [facility] [place] [address] * (ABNORMAL) BLOOD GAS 2 ARTERIAL (07/20/2017 11:43 AM EDT) Pathologist [facility] pH Art 7.45 7.35 - 7.45 [facility] pCO2 Art 35 35 - [address] [facility] pO2 Art 57(L) 85 - [address] [facility] HCO3 Art 23.9 20.0 - 26.0 mmol/L [facility] BE Art 0.1 -3.0 - 3.0 mmol/L [facility] Hgb Blood Gas 14.6 13.7 - 16.5 gm/dL [facility] O2HB Art 89.5(L) 94.0 - 97.0 % [facility] COHB Art 0.0 % [facility] Comment: Nonsmokers: 0.5-1.5% COHB Smokers: Variable, but usually less than 10% Toxic: 20-30% COHB Lethal: Greater than 60% COHB METHB Art 0.5 <=1.5 % [facility] Na Whole Blood 145 135 - 145 mmol/L [facility] K Whole Blood 3.9 3.5 - 5.0 mmol/L [facility] Comment: Please note: Patients with WBC >100,000 may have falsely elevated Potassium levels. Contact the Clinical Chemistry Laboratory if there are any questions. ICa Whole Blood 1.23 1.15 - 1.33 mmol/L [facility] Comment: Note: ??Total bilirubin higher than 20 mg/dL may lead to falsely low ionized calcium. CL Whole Blood 110(H) 98 - 107 mmol/L [facility] Gluc Whole Bld 136 65 - 199 mg/dL [facility] Comment:Diabetes: >=200 mg/d L plus symptoms. Lactate WB 1.3 0.5 - 2.2 mmol/L [facility] FIO2 Art 35 % [facility] PF Ratio Art 163 [facility] Temp Art 37.6 Celsius [facility] Blood specimen (specimen) 07/20/2017 11:43 AM EDT 07/20/2017 11:43 AM EDT Sriram Contreras MD CHEMISTRY ORDERABL ES Performing Organization Address [facility] Co de Phone Number [facility] [place] [address] * Potassium (07/20/2017 10:15 AM EDT) Potassium 4.1 3.5 - 5.0 mmol/L [facility] Comment: Please note: ??Patients with [...] Lab Sriram Contreras MD CHEMISTRY ORDERABL ES [facility] [place] [address] * XR Chest PA or AP 1 [...] Betancur MD - 07/20/2017 7:51 AM EDT Heyd Cat, DO ? 07/19/2017 ??5:56 PM Intubation Procedure Note Reason for Intubation: ?Hypoxemia. Procedure Diagnosis: hypoxic respiratory failure Location of Procedure: [facility]. Risks and Benefits: The risks and benefits [...] the duration of the procedure. Hedy Cat, DO 07/19/2017 Sriram Contreras MD PROCEDURE/[facility] ORDERABLES * POCT Glucose (07/20/2017 7:29 AM EDT) POC Glucose 134 65 - 199 mg/dL [facility] Comment: Supplemental ranges: <140 mg/dL before meals <180 mg/dL all other times of the day Blood specimen (specimen) 07/20/2017 7:29 AM EDT 07/20/2017 7:29 AM EDT Sriram Contreras MD POINT OF CARE TEST ORDERABLES Performing Organization Address [facility] Co de Phone Number [facility] [place] [address] * Potassium (07/20/2017 7:28 AM EDT) Pathologist [facility] Potassium 4.0 3.5 - 5.0 mmol/L [facility] Comment: Please note: ??Patients with [...] MD CHEMISTRY ORDERABL ES Performing Organization Address [facility] Co de Phone Number [facility] [place] [address] * (ABNORMAL) Differential, Automated (07/20/2017 3:15 AM EDT) Pathologist [facility] Neutrophils % 83.6 % [facility] Neutr Abs (ANC) 8.93(H) 1.70 - 6.10 x10(3)/mc L [facility] Lymphocytes % 9.1 % [facility] Lymphocytes Abs 1.0 0.9 - 3.2 x10(3)/mc L [facility] Monocytes % 6.3 % [facility] Monocyte Abs 0.7 0.3 - 0.9 x10(3)/mc L [facility] Eosinophils % 0.1 % [facility] Eosinophils Abs 0.0 0.0 - 0.4 x10(3)/mc L [facility] Basophils % 0.2 % [facility] Basophils Abs 0.0 0.0 - 0.1 x10(3)/mc L [facility] Immature Gran % 0.70 % [facility] Comment: Immature granulocytes(IG's)percentage and absolute count will include metamyelocytes, myelocytes, and promyelocytes. Blood smears from CBCs yielding IG's will be scanned manually for concordance. If this scan disagrees with the automated IG or if promyelocytes are noted, a manual differential will be performed. Patti Gran Abs 0.07(H) 0.00 - 0.04 x10(3)/mc L [facility] Blood specimen (specimen) 07/20/2017 3:15 AM EDT 07/20/2017 3:58 AM EDT Narrative Resulting Agency Comment Spec In Lab Sriram Contreras MD HEMATOLOGY ORDERAB LES Performing Organization Address City/State/[facility] Co de Phone Number [facility] [place] [address] * (ABNORMAL) Hemogram (07/20/2017 3:15 AM EDT) WBC 10.7(H) 4.0 - 9.5 x10(3)/[facility] LABORATORY RBC 4.40(L) 4.58 - 5.54 x10(6)/[facility] Hemoglobin 13.7 13.7 - 16.5 gm/dL [facility] Hematocrit 39.6(L) 40.5 - 48.5 % [facility] MCV 90.0 82.9 - 93.[address] [facility] MCH 31.1 27.5 - 32.[address] [facility] MCHC 34.6 32.0 - 35.7 gm/dL [facility] Platelets 186 145 - 357 x10(3)/[facility] RDWSD 45.8(H) 36.0 - 45.[address] [facility] RDWCV 13.9(H) 11.4 - 13.8 % [facility] MPV 9.9 7.6 - 12.[address] [facility] nRBC % Auto 0.0 % [facility] nRBC Abs Auto 0.000 0.000 - 0.000 x10(3)/mcL [facility] Blood specimen (specimen) 07/20/2017 3:15 AM EDT 07/20/2017 3:58 AM EDT Narrative Resulting Agency Comment Spec In Lab Sriram Contreras MD HEMATOLOGY ORDERAB LES [facility] [place] [address] * (ABNORMAL) Basic Metabolic Panel (non-fasting) (07/20/2017 3:15 AM EDT) Glucose Lvl 126 65 - 199 mg/dL [facility] Comment:Diabetes: >=200 mg/d L plus symptoms BUN 23(H) 10 - 20 mg/dL [facility] Creatinine 0.97 0.80 - 1.50 mg/dL [facility] Comment: Please note that the pediatric reference intervals supplied above were not validated at [facility]. Results from pediatric patients should be interpreted in conjunction to the patient's age, height and muscle mass. Sodium 143 135 - 145 mmol/L [facility] Potassium 3.9 3.5 - 5.0 mmol/L [facility] Comment: Please note: ??Patients with WBC >100,000 may have falsely elevated Potassium levels. ??For accurate Potassium quantification in these patients send serum separator tube (gold top) for subsequent determinations. ??Contact the Clinical Chemistry Laboratory if there are any questions. Chloride 106 98 - 107 mmol/L [facility] CO2 23 22 - 31 mmol/L [facility] Anion Gap 14 5 - 15 mmol/L [facility] Calcium 8.5 8.5 - 10.5 mg/dL [facility] Estimated GFR >60 >=[facility] LABORATORY Comment: This estimated GFR (eGFR) [...] the following links into your internet browser. [email or web address] Blood specimen (specimen) 07/20/2017 3:15 AM EDT 07/20/2017 3:58 AM EDT Narrative Resulting Agency Comment Spec In Lab Sriram Contreras MD CHEMISTRY ORDERABL ES Performing Organization Address [facility] Co de Phone Number [facility] [place] [address] * POCT Glucose (07/20/2017 3:13 AM EDT) POC Glucose 114 65 - 199 mg/dL [facility] Comment: Supplemental ranges: <140 mg/dL before meals <180 mg/dL all other times of the day Blood specimen (specimen) 07/20/2017 3:13 AM EDT 07/20/2017 3:13 AM EDT Sriram Contreras MD POINT OF CARE TEST ORDERABLES Performing Organization Address [facility] Co de Phone Number [facility] [place] [address] * (ABNORMAL) BLOOD GAS 2 ARTERIAL (07/19/2017 11:36 PM EDT) pH Art 7.51(H) 7.35 - 7.45 [facility] pCO2 Art 29(L) 35 - [address] [facility] pO2 Art 77(L) 85 - [address] [facility] HCO3 Art 22.2 20.0 - 26.0 mmol/L [facility] BE Art -0.8 -3.0 - 3.0 mmol/L [facility] Hgb Blood Gas 14.7 13.7 - 16.5 gm/dL [facility] O2HB Art 94.7 94.0 - 97.0 % [facility] COHB Art 0.3 % [facility] Comment: Nonsmokers: 0.5-1.5% COHB Smokers: Variable, but usually less than 10% Toxic: 20-30% COHB Lethal: Greater than 60% COHB METHB Art 0.7 <=1.5 % [facility] Na Whole Blood 142 135 - 145 mmol/L [facility] K Whole Blood 3.8 3.5 - 5.0 mmol/L [facility] Comment: Please note: Patients with WBC >100,000 may have falsely elevated Potassium levels. Contact the Clinical Chemistry Laboratory if there are any questions. ICa Whole Blood 1.19 1.15 - 1.33 mmol/L [facility] Comment: Note: ??Total bilirubin higher than 20 mg/dL may lead to falsely low ionized calcium. CL Whole Blood 109(H) 98 - 107 mmol/L [facility] Gluc Whole Bld 125 65 - 199 mg/dL [facility] Comment:Diabetes: >=200 mg/d L plus symptoms. Lactate WB 1.6 0.5 - 2.2 mmol/L [facility] FIO2 Art 50 % [facility] PF Ratio Art 154 [facility] Blood specimen (specimen) 07/19/2017 11:36 PM EDT 07/19/2017 11:36 PM EDT Sriram Contreras MD CHEMISTRY ORDERABL ES [facility] [place] [address] * POCT Glucose (07/19/2017 11:31 PM EDT) POC Glucose 110 65 - 199 mg/dL [facility] Comment: Supplemental ranges: <140 mg/dL before meals <180 mg/dL all other times of the day Blood specimen (specimen) 07/19/2017 11:31 PM EDT 07/19/2017 11:31 PM EDT Sriram Contreras MD POINT OF CARE TEST ORDERABLES Performing Organization Address [facility] Co de Phone Number [facility] [place] [address] * Potassium (07/19/2017 11:30 PM EDT) Potassium 3.9 3.5 - 5.0 mmol/L [facility] Comment: Please note: ??Patients with [...] MD CHEMISTRY ORDERABL ES Performing Organization Address [facility] de Phone Number [facility] [place] [address] * POCT Glucose (07/19/2017 7:45 PM EDT) POC Glucose 100 65 - 199 mg/dL [facility] Comment: Supplemental ranges: <140 mg/dL before meals <180 mg/dL all other times of the day Blood specimen (specimen) 07/19/2017 7:45 PM EDT 07/19/2017 7:45 PM EDT Sriram Contreras MD POINT OF CARE TEST ORDERABLES Performing Organization Address [facility] Co de Phone Number [facility] [place] [address] * Blood culture (07/19/2017 7:00 PM EDT) Blood Culture No growth at [address] [facility] Blood specimen (specimen) STRUCTURE OF LEFT WRIST REGION / Unknown 07/19/2017 7:00 PM EDT 07/19/2017 7:50 PM EDT Narrative Resulting Agency Comment Spec In Lab Sriram Contreras MD MICROBIOLOGY - BLO OD ORDERABLES Performing Organization Address City/[facility]/ZIP Co de Phone Number [facility] [place] [address] * Blood culture (07/19/2017 6:50 PM EDT) Blood Culture No growth at [address] [facility] Blood specimen (specimen) STRUCTURE OF RIGHT WRIST REGION / Unknown 07/19/2017 6:50 PM EDT 07/19/2017 7:51 PM EDT Narrative Resulting Agency Comment Spec In Lab Sriram Contreras MD MICROBIOLOGY - BLO OD ORDERABLES Performing Organization Address [facility] Co de Phone Number [facility] [place] [address] * XR Chest PA or AP 1 [...] EDT) pH Art 7.49(H) 7.35 - 7.45 [facility] pCO2 Art 32(L) 35 - [address] [facility] pO2 Art 66(L) 85 - [address] [facility] HCO3 Art 23.2 20.0 - 26.0 mmol/L [facility] BE Art -0.2 -3.0 - 3.0 mmol/L [facility] Hgb Blood Gas 15.5 13.7 - 16.5 gm/dL [facility] O2HB Art 93.1(L) 94.0 - 97.0 % [facility] COHB Art 0.4 % [facility] Comment: Nonsmokers: 0.5-1.5% COHB Smokers: Variable, but usually less than 10% Toxic: 20-30% COHB Lethal: Greater than 60% COHB METHB Art 0.6 <=1.5 % [facility] Na Whole Blood 158(H) 135 - 145 mmol/L [facility] K Whole Blood 4.0 3.5 - 5.0 mmol/L [facility] Comment: Please note: Patients with WBC >100,000 may have falsely elevated Potassium levels. Contact the Clinical Chemistry Laboratory if there are any questions. ICa Whole Blood 1.14(L) 1.15 - 1.33 mmol/L [facility] Comment: Note: ??Total bilirubin higher than 20 mg/dL may lead to falsely low ionized calcium. CL Whole Blood 120(H) 98 - 107 mmol/L [facility] Gluc Whole Bld 116 65 - 199 mg/dL [facility] Comment:Diabetes: >=200 mg/d L plus symptoms. Lactate WB 1.6 0.5 - 2.2 mmol/L [facility] FIO2 Art 100 % [facility] PF Ratio Art 66 [facility] Blood specimen (specimen) 07/19/2017 5:12 PM EDT 07/19/2017 5:12 PM EDT Sriram Contreras MD CHEMISTRY ORDERABL ES Performing Organization Address City/[facility] Co de Phone Number [facility] [place] [address] * EKG 12 Lead (07/19/2017 4:55 PM EDT) Ventricular rate 85 BPM MUSE SYSTEM Atrial Rate 326 BPM MUSE SYSTEM QRS Duration 92 ms MUSE SYSTEM Q-T Interval 388 ms MUSE SYSTEM QTC Calculated (Bezet) 461 ms MUSE SYSTEM Calculated R [place] 65 degrees MUSE SYSTEM Calculated T [place] 4 degrees MUSE SYSTEM INTERPRETATION Atrial fibrillation with premature ventricular or aberrantly conducted complexes Nonspecific ST abnormality Abnormal ECG When compared with ECG of 16-JUL-2017 16:46, Atrial fibrillation has replaced Sinus rhythm ST now depressed in Inferior leads Nonspecific T wave abnormality now evident in Inferior leads Confirmed by MD MONTANO ALAN ([id number]) on 07/21/2017 8:04:44 PM MUSE SYSTEM 07/19/2017 4:55 PM EDT 07/21/2017 8:04 PM EDT Sriram Contreras MD ECG ORDERABLES Performing Organization Address City/[facility]/ZIP Co de Phone Number MUSE SYSTEM * Phosphorus (07/19/2017 4:50 PM EDT) Phosphorus 3.0 2.5 - 4.5 mg/dL [facility] Blood specimen (specimen) 07/19/2017 4:50 PM EDT 07/19/2017 5:05 PM EDT Narrative Resulting Agency Comment Spec In Lab Sriram Contreras MD CHEMISTRY ORDERABL ES [facility] [place] [address] * (ABNORMAL) Basic Metabolic Panel (non-fasting) (07/19/2017 4:50 PM EDT) Glucose Lvl 118 65 - 199 mg/dL [facility] Comment:Diabetes: >=200 mg/d L plus symptoms BUN 19 10 - 20 mg/dL [facility] Creatinine 0.79(L) 0.80 - 1.50 mg/dL [facility] Comment: Please note that the pediatric reference intervals supplied above were not validated at [facility]. Results from pediatric patients should be interpreted in conjunction to the patient's age, height and muscle mass. Sodium 144 135 - 145 mmol/L [facility] Potassium 3.5 3.5 - 5.0 mmol/L [facility] Comment: Please note: ??Patients with WBC >100,000 may have falsely elevated Potassium levels. ??For accurate Potassium quantification in these patients send serum separator tube (gold top) for subsequent determinations. ??Contact the Clinical Chemistry Laboratory if there are any questions. Chloride 106 98 - 107 mmol/L [facility] CO2 23 22 - 31 mmol/L [facility] Anion Gap 15 5 - 15 mmol/L [facility] Calcium 8.7 8.5 - 10.5 mg/dL [facility] Estimated GFR >60 >=60 [facility] Comment: This estimated GFR (eGFR) [...] the following links into your internet browser. [email or web address] Blood specimen (specimen) 07/19/2017 4:50 PM EDT 07/19/2017 5:05 PM EDT Narrative Resulting Agency Comment Spec In Lab Sriram Contreras MD CHEMISTRY ORDERABL ES Performing Organization Address [facility] Co de Phone Number [facility] [place] [address] * Magnesium (07/19/2017 4:50 PM EDT) Magnesium 0.86 0.69 - 1.07 mmol/L [facility] Blood specimen (specimen) 07/19/2017 4:50 PM EDT 07/19/2017 5:05 PM EDT Narrative Resulting Agency Comment Spec In Lab Sriram Contreras MD CHEMISTRY ORDERABL ES Performing Organization Address [facility] de Phone Number [facility] [place] [address] * POCT Glucose (07/19/2017 3:37 PM EDT) POC Glucose 101 65 - 199 mg/dL [facility] Comment: Supplemental ranges: <140 mg/dL before meals <180 mg/dL all other times of the day Blood specimen (specimen) 07/19/2017 3:37 PM EDT 07/19/2017 3:37 PM EDT Srirma Contreras MD POINT OF CARE TEST ORDERABLES Performing Organization Address [facility] Co de Phone Number [facility] [place] [address] * XR Chest PA or AP 1 [...] POC Glucose 100 65 - 199 mg/dL [facility] Comment: Supplemental ranges: <140 mg/dL before meals <180 mg/dL all other times of the day Blood specimen (specimen) 07/19/2017 12:36 PM EDT 07/19/2017 12:36 PM EDT Sriram Contreras MD POINT OF CARE TEST ORDERABLES [facility] [place] [address] * Potassium (07/19/2017 12:30 PM EDT) Potassium 3.7 3.5 - 5.0 mmol/L [facility] Comment: Please note: ??Patients with [...] Lab Sriram Contreras MD CHEMISTRY ORDERABL ES [facility] [place] [address] * (ABNORMAL) BLOOD GAS 2 ARTERIAL (07/19/2017 12:17 PM EDT) pH Art 7.50(H) 7.35 - 7.45 [facility] pCO2 Art 32(L) 35 - [address] [facility] pO2 Art 60(L) 85 - [address] [facility] HCO3 Art 23.7 20.0 - 26.0 mmol/L [facility] BE Art 0.5 -3.0 - 3.0 mmol/L [facility] Hgb Blood Gas 14.8 13.7 - 16.5 gm/dL [facility] O2HB Art 91.1(L) 94.0 - 97.0 % [facility] COHB Art 0.1 % [facility] Comment: Nonsmokers: 0.5-1.5% COHB Smokers: Variable, but usually less than 10% Toxic: 20-30% COHB Lethal: Greater than 60% COHB METHB Art 0.6 <=1.5 % [facility] Na Whole Blood 145 135 - 145 mmol/L [facility] K Whole Blood 3.7 3.5 - 5.0 mmol/L [facility] Comment: Please note: Patients with WBC >100,000 may have falsely elevated Potassium levels. Contact the Clinical Chemistry Laboratory if there are any questions. ICa Whole Blood 1.16 1.15 - 1.33 mmol/L [facility] Comment: Note: ??Total bilirubin higher than 20 mg/dL may lead to falsely low ionized calcium. CL Whole Blood 109(H) 98 - 107 mmol/L [facility] Gluc Whole Bld 115 65 - 199 mg/dL [facility] Comment:Diabetes: >=200 mg/d L plus symptoms. Lactate WB 1.3 0.5 - 2.2 mmol/L [facility] FIO2 Art 45 % [facility] PF Ratio Art 133 [facility] Blood specimen (specimen) 07/19/2017 12:17 PM EDT 07/19/2017 12:17 PM EDT Sriram Contreras MD CHEMISTRY ORDERABL ES Performing Organization Address [facility] Co de Phone Number [facility] [place] [address] * Potassium (07/19/2017 8:50 AM EDT) Potassium 3.8 3.5 - 5.0 mmol/L [facility] Comment: Please note: ??Patients with [...] MD CHEMISTRY ORDERABL ES Performing Organization Address City/[facility]/ZIP Co de Phone Number [facility] [place] [address] * Folate, serum (07/19/2017 8:50 AM EDT) Folate Lvl 16.6 4.8 - 24.2 ng/mL [facility] Blood specimen (specimen) 07/19/2017 8:50 AM EDT 07/19/2017 9:11 AM EDT Narrative Resulting Agency Comment Spec In Lab Sriram Contreras MD CHEMISTRY ORDERABL ES [facility] [place] [address] * Vitamin B12 (07/19/2017 8:50 AM EDT) [facility] Vitamin B-12 468 207 - 974 pg/mL [facility] Blood specimen (specimen) 07/19/2017 8:50 AM EDT 07/19/2017 9:11 AM EDT Narrative Resulting Agency Comment Spec In Lab Sriram Contreras MD CHEMISTRY ORDERABL ES Performing Organization Address [facility]/ZIP Co de Phone Number [facility] [place] [address] * (ABNORMAL) TSH (07/19/2017 8:50 AM EDT) [facility] TSH 6.80(H) 0.27 - 4.20 mlU/ML [facility] Blood specimen (specimen) 07/19/2017 8:50 AM EDT 07/19/2017 9:11 AM EDT Narrative Resulting Agency Comment Spec In Lab Sriram Contreras MD CHEMISTRY ORDERABL ES Performing Organization Address [facility]/ZIP Co de Phone Number [facility] [place] [address] * Urine Hold (07/19/2017 8:07 AM EDT) [facility] Urine Hold Sample in lab. [facility] Urine specimen (specimen) Urine / Unknown 07/19/2017 8:07 AM EDT 07/19/2017 8:35 AM EDT Sriram Contreras MD URINE ORDERABLES Performing Organization Address City/[facility]/ZIP Co de Phone Number [facility] [place] [address] * (ABNORMAL) Urinalysis with reflex Culture (07/19/2017 8:07 AM EDT) Glucose UA Negative Negative mg/dL [facility] Protein UA 30(A) Negative mg/dL [facility] Bilirubin UA Negative Negative mg/dL [facility] Comment: Clinical correlation required for positive Urine Bilirubin results as false positive may occur with some drugs and drug related products. If a false positive is suspected a serum total bilirubin should be considered if clinically indicated. Urobilinogen UA >=4.0(A) Normal mg/dL [facility] pH UA 7.0 5.0 - 8.0 [facility] Blood UA Moderate(A) Negative mg/dL [facility] Ketones UA Negative Negative mg/dL [facility] Nitrite UA Negative Negative [facility] Leukocytes UA Trace(A) Negative mcL [facility] Appearance UA Clear Clear [facility] Spec Carmel UA 1.025 1.002 - 1.030 [facility] Color UA Yellow Yellow [facility] RBC UA 161(H) 0 - 3 /HPF [facility] WBC UA 1 0 - 3 /HPF [facility] Culture Reflexed No [facility] Urine specimen obtained via indwelling urinary catheter (specimen) 07/19/2017 8:07 AM EDT 07/19/2017 8:34 AM EDT Narrative Resulting Agency Comment Spec In Lab Sriram Contreras MD URINE ORDERABLES Performing Organization Address City/State/[facility] Co de Phone Number [facility] [place] [address] * POCT Glucose (07/19/2017 7:42 AM EDT) POC Glucose 99 65 - 199 mg/dL [facility] Comment: Supplemental ranges: <140 mg/dL before meals <180 mg/dL all other times of the day Blood specimen (specimen) 07/19/2017 7:42 AM EDT 07/19/2017 7:42 AM EDT Sriram Contreras MD POINT OF CARE TEST ORDERABLES [facility] [place] [address] * POCT Glucose (07/19/2017 4:11 AM EDT) Pathologist [facility] POC Glucose 93 65 - 199 mg/dL [facility] Comment: Supplemental ranges: <140 mg/dL before meals <180 mg/dL all other times of the day Blood specimen (specimen) 07/19/2017 4:11 AM EDT 07/19/2017 4:11 AM EDT Sriram Contreras MD POINT OF CARE TEST ORDERABLES Performing Organization Address City/[facility]/ZIP Co de Phone Number [facility] [place] [address] * (ABNORMAL) Differential, Automated (07/19/2017 2:30 AM EDT) Pathologist [facility] Neutrophils % 77.9 % [facility] Neutr Abs (ANC) 9.99(H) 1.70 - 6.10 x10(3)/mc L [facility] Lymphocytes % 9.8 % [facility] Lymphocytes Abs 1.2 0.9 - 3.2 x10(3)/mc L [facility] Monocytes % 11.5 % [facility] Monocyte Abs 1.5(H) 0.3 - 0.9 x10(3)/mc L [facility] Eosinophils % 0.1 % [facility] Eosinophils Abs 0.0 0.0 - 0.4 x10(3)/mc L [facility] Basophils % 0.2 % [facility] Basophils Abs 0.0 0.0 - 0.1 x10(3)/mc L [facility] Immature Gran % 0.50 % [facility] Comment: Immature granulocytes(IG's)percentage and absolute count will include metamyelocytes, myelocytes, and promyelocytes. Blood smears from CBCs yielding IG's will be scanned manually for concordance. If this scan disagrees with the automated IG or if promyelocytes are noted, a manual differential will be performed. Patti Gran Abs 0.07(H) 0.00 - 0.04 x10(3)/ L [facility] Blood specimen (specimen) 07/19/2017 2:30 AM EDT 07/19/2017 2:34 AM EDT Narrative Resulting Agency Comment Spec In Lab Sriram Contreras MD HEMATOLOGY ORDERAB LES [facility] [place] [address] * (ABNORMAL) Hemogram (07/19/2017 2:30 AM EDT) WBC 12.8(H) 4.0 - 9.5 x10(3)/[facility] LABORATORY RBC 4.30(L) 4.58 - 5.54 x10(6)/[facility] Hemoglobin 13.5(L) 13.7 - 16.5 gm/dL [facility] Hematocrit 38.6(L) 40.5 - 48.5 % [facility] MCV 89.8 82.9 - 93.1 [facility] MCH 31.4 27.5 - 32.[address] [facility] MCHC 35.0 32.0 - 35.7 gm/dL [facility] Platelets 176 145 - 357 x10(3)/[facility] RDWSD 45.1(H) 36.0 - 45.0 [facility] RDWCV 13.9(H) 11.4 - 13.8 % [facility] MPV 9.8 7.6 - 12.9 [facility] nRBC % Auto 0.0 % [facility] nRBC Abs Auto 0.000 0.000 - 0.000 x10(3)/mcL [facility] Blood specimen (specimen) 07/19/2017 2:30 AM EDT 07/19/2017 2:34 AM EDT Narrative Resulting Agency Comment Spec In Lab Sriram Contreras MD HEMATOLOGY ORDERAB LES [facility] [place] [address] * (ABNORMAL) Basic Metabolic Panel (non-fasting) (07/19/2017 2:30 AM EDT) Glucose Lvl 102 65 - 199 mg/dL [facility] Comment:Diabetes: >=200 mg/d L plus symptoms BUN 23(H) 10 - 20 mg/dL [facility] Creatinine 0.87 0.80 - 1.50 mg/dL [facility] Comment: Please note that the pediatric reference intervals supplied above were not validated at [facility]. Results from pediatric patients should be interpreted in conjunction to the patient's age, height and muscle mass. Sodium 144 135 - 145 mmol/L [facility] Potassium 3.4(L) 3.5 - 5.0 mmol/L [facility] Comment: Please note: ??Patients with WBC >100,000 may have falsely elevated Potassium levels. ??For accurate Potassium quantification in these patients send serum separator tube (gold top) for subsequent determinations. ??Contact the Clinical Chemistry Laboratory if there are any questions. Chloride 106 98 - 107 mmol/L [facility] CO2 23 22 - 31 mmol/L [facility] Anion Gap 15 5 - 15 mmol/L [facility] Calcium 8.5 8.5 - 10.5 mg/dL [facility] Estimated GFR >60 >=60 [facility] Comment: This estimated GFR (eGFR) [...] the following links into your internet browser. [email or web address] Blood specimen (specimen) 07/19/2017 2:30 AM EDT 07/19/2017 2:34 AM EDT Narrative Resulting Agency Comment Spec In Lab Sriram Contreras MD CHEMISTRY ORDERABL ES Performing Organization Address [facility] de Phone Number [facility] [place] [address] * (ABNORMAL) Prealbumin (07/19/2017 2:30 AM EDT) Prealbumin 17(L) 20 - 40 mg/dL [facility] Comment: Prealbumin levels are generally lower in the pediatric population; adult concentrations are usually attained near puberty. Blood specimen (specimen) 07/19/2017 2:30 AM EDT 07/19/2017 2:34 AM EDT Narrative Resulting Agency Comment Spec In Lab Sriram Contreras MD CHEMISTRY ORDERABL ES Performing Organization Address [facility] de Phone Number [facility] [place] [address] * (ABNORMAL) BLOOD GAS 2 ARTERIAL (07/18/2017 11:53 PM EDT) pH Art 7.50(H) 7.35 - 7.45 [facility] pCO2 Art 32(L) 35 - [address] [facility] pO2 Art 61(L) 85 - [address] [facility] HCO3 Art 24.5 20.0 - 26.0 mmol/L [facility] BE Art 1.3 -3.0 - 3.0 mmol/L [facility] Hgb Blood Gas 14.1 13.7 - 16.5 gm/dL [facility] O2HB Art 90.9(L) 94.0 - 97.0 % [facility] COHB Art 0.3 % [facility] Comment: Nonsmokers: 0.5-1.5% COHB Smokers: Variable, but usually less than 10% Toxic: 20-30% COHB Lethal: Greater than 60% COHB METHB Art 0.7 <=1.5 % [facility] Na Whole Blood 144 135 - 145 mmol/L [facility] K Whole Blood 3.3(L) 3.5 - 5.0 mmol/L [facility] Comment: Please note: Patients with WBC >100,000 may have falsely elevated Potassium levels. Contact the Clinical Chemistry Laboratory if there are any questions. ICa Whole Blood 1.17 1.15 - 1.33 mmol/L [facility] Comment: Note: ??Total bilirubin higher than 20 mg/dL may lead to falsely low ionized calcium. CL Whole Blood 109(H) 98 - 107 mmol/L [facility] Gluc Whole Bld 104 65 - 199 mg/dL [facility] Comment:Diabetes: >=200 mg/d L plus symptoms. Lactate WB 1.3 0.5 - 2.2 mmol/L [facility] FIO2 Art 45 % [facility] [facility] PF Ratio Art 136 [facility] Blood specimen (specimen) 07/18/2017 11:53 PM EDT 07/18/2017 11:53 PM EDT Sriram Contreras MD CHEMISTRY ORDERABL ES [facility] [place] [address] * POCT Glucose (07/18/2017 11:49 PM EDT) POC Glucose 102 65 - 199 mg/dL [facility] Comment: Supplemental ranges: <140 mg/dL before meals <180 mg/dL all other times of the day Blood specimen (specimen) 07/18/2017 11:49 PM EDT 07/18/2017 11:49 PM EDT Sriram Contreras MD POINT OF CARE TEST ORDERABLES [facility] [place] [address] * POCT Glucose (07/18/2017 8:44 PM EDT) POC Glucose 108 65 - 199 mg/dL [facility] Comment: Supplemental ranges: <140 mg/dL before meals <180 mg/dL all other times of the day Blood specimen (specimen) 07/18/2017 8:44 PM EDT 07/18/2017 8:44 PM EDT Sriram Contreras MD POINT OF CARE TEST ORDERABLES Performing Organization Address [facility] Co de Phone Number [facility] [place] [address] * (ABNORMAL) BLOOD GAS 2 ARTERIAL (07/18/2017 5:22 PM EDT) pH Art 7.54(H) 7.35 - 7.45 [facility] pCO2 Art 31(L) 35 - [address] [facility] pO2 Art 55(L) 85 - [address] [facility] HCO3 Art 25.9 20.0 - 26.0 mmol/L [facility] BE Art 3.3(H) -3.0 - 3.0 mmol/L [facility] Hgb Blood Gas 14.2 13.7 - 16.5 gm/dL [facility] O2HB Art 90.3(L) 94.0 - 97.0 % [facility] COHB Art 0.3 % [facility] Comment: Nonsmokers: 0.5-1.5% COHB Smokers: Variable, but usually less than 10% Toxic: 20-30% COHB Lethal: Greater than 60% COHB METHB Art 0.5 <=1.5 % [facility] Na Whole Blood 144 135 - 145 mmol/L [facility] K Whole Blood 3.3(L) 3.5 - 5.0 mmol/L [facility] Comment: Please note: Patients with WBC >100,000 may have falsely elevated Potassium levels. Contact the Clinical Chemistry Laboratory if there are any questions. ICa Whole Blood 1.18 1.15 - 1.33 mmol/L [facility] Comment: Note: ??Total bilirubin higher than 20 mg/dL may lead to falsely low ionized calcium. CL Whole Blood 108(H) 98 - 107 mmol/L [facility] Gluc Whole Bld 130 65 - 199 mg/dL [facility] Comment:Diabetes: >=200 mg/d L plus symptoms. Lactate WB 1.6 0.5 - 2.2 mmol/L [facility] FIO2 Art 40 % [facility] PF Ratio Art 138 [facility] Blood specimen (specimen) 07/18/2017 5:22 PM EDT 07/18/2017 5:22 PM EDT Sriram Contreras MD CHEMISTRY ORDERABL ES Performing Organization Address City/[facility]/ZIP Co de Phone Number [facility] [place] [address] * POCT Glucose (07/18/2017 3:42 PM EDT) POC Glucose 119 65 - 199 mg/dL [facility] Comment: Supplemental ranges: <140 mg/dL before meals <180 mg/dL all other times of the day Blood specimen (specimen) 07/18/2017 3:42 PM EDT 07/18/2017 3:42 PM EDT Sriram Contreras MD POINT OF CARE TEST ORDERABLES Performing Organization Address City/[facility]/ZIP Co de Phone Number [facility] [place] [address] * POCT Glucose (07/18/2017 1:05 PM EDT) POC Glucose 118 65 - 199 mg/dL [facility] Comment: Supplemental ranges: <140 mg/dL before meals <180 mg/dL all other times of the day Blood specimen (specimen) 07/18/2017 1:05 PM EDT 07/18/2017 1:05 PM EDT Sriram Contreras MD POINT OF CARE TEST ORDERABLES Performing Organization Address City/State/[facility] Co de Phone Number [facility] [place] [address] * (ABNORMAL) BLOOD GAS 2 ARTERIAL (07/18/2017 11:47 AM EDT) Pathologist [facility] pH Art 7.51(H) 7.35 - 7.45 [facility] pCO2 Art 33(L) 35 - [address] [facility] pO2 Art 94 85 - [address] [facility] HCO3 Art 25.1 20.0 - 26.0 mmol/L [facility] BE Art 2.0 -3.0 - 3.0 mmol/L [facility] Hgb Blood Gas 14.4 13.7 - 16.5 gm/dL [facility] O2HB Art 96.1 94.0 - 97.0 % [facility] COHB Art 0.3 % [facility] Comment: Nonsmokers: 0.5-1.5% COHB Smokers: Variable, but usually less than 10% Toxic: 20-30% COHB Lethal: Greater than 60% COHB METHB Art 0.6 <=1.5 % [facility] Na Whole Blood 141 135 - 145 mmol/L [facility] K Whole Blood 3.6 3.5 - 5.0 mmol/L [facility] Comment: Please note: Patients with WBC >100,000 may have falsely elevated Potassium levels. Contact the Clinical Chemistry Laboratory if there are any questions. ICa Whole Blood 1.17 1.15 - 1.33 mmol/L [facility] Comment: Note: ??Total bilirubin higher than 20 mg/dL may lead to falsely low ionized calcium. CL Whole Blood 104 98 - 107 mmol/L [facility] Gluc Whole Bld 228(H) 65 - 199 mg/dL [facility] Comment:Diabetes: >=200 mg/d L plus symptoms. Lactate WB 1.7 0.5 - 2.2 mmol/L [facility] FIO2 Art 50 % [facility] PF Ratio Art 188 [facility] Blood specimen (specimen) 07/18/2017 11:47 AM EDT 07/18/2017 11:47 AM EDT Sriram Contreras MD CHEMISTRY ORDERABL ES [facility] [place] [address] * (ABNORMAL) BLOOD GAS 2 ARTERIAL (07/18/2017 7:56 AM EDT) pH Art 7.50(H) 7.35 - 7.45 [facility] pCO2 Art 31(L) 35 - [address] [facility] pO2 Art 82(L) 85 - [address] [facility] HCO3 Art 24.2 20.0 - 26.0 mmol/L [facility] BE Art 1.0 -3.0 - 3.0 mmol/L [facility] Hgb Blood Gas 13.4(L) 13.7 - 16.5 gm/dL [facility] O2HB Art 95.3 94.0 - 97.0 % [facility] COHB Art 0.3 % [facility] Comment: Nonsmokers: 0.5-1.5% COHB Smokers: Variable, but usually less than 10% Toxic: 20-30% COHB Lethal: Greater than 60% COHB METHB Art 0.5 <=1.5 % [facility] Na Whole Blood 143 135 - 145 mmol/L [facility] K Whole Blood 3.7 3.5 - 5.0 mmol/L [facility] Comment: Please note: Patients with WBC >100,000 may have falsely elevated Potassium levels. Contact the Clinical Chemistry Laboratory if there are any questions. ICa Whole Blood 1.17 1.15 - 1.33 mmol/L [facility] Comment: Note: ??Total bilirubin higher than 20 mg/dL may lead to falsely low ionized calcium. CL Whole Blood 106 98 - 107 mmol/L [facility] Gluc Whole Bld 158 65 - 199 mg/dL [facility] Comment:Diabetes: >=200 mg/d L plus symptoms. Lactate WB 2.5(H) 0.5 - 2.2 mmol/L [facility] FIO2 Art 60 % [facility] PF Ratio Art 137 [facility] Blood specimen (specimen) 07/18/2017 7:56 AM EDT 07/18/2017 7:56 AM EDT Sriram Contreras MD CHEMISTRY ORDERABL ES [facility] [place] [address] * (ABNORMAL) BLOOD GAS 2 ARTERIAL (07/18/2017 3:55 AM EDT) pH Art 7.51(H) 7.35 - 7.45 [facility] pCO2 Art 34(L) 35 - [address] [facility] pO2 Art 95 85 - [address] [facility] HCO3 Art 26.4(H) 20.0 - 26.0 mmol/L [facility] BE Art 3.4(H) -3.0 - 3.0 mmol/L [facility] Hgb Blood Gas 14.2 13.7 - 16.5 gm/dL [facility] O2HB Art 96.4 94.0 - 97.0 % [facility] COHB Art 0.5 % [facility] Comment: Nonsmokers: 0.5-1.5% COHB Smokers: Variable, but usually less than 10% Toxic: 20-30% COHB Lethal: Greater than 60% COHB METHB Art 0.6 <=1.5 % [facility] Na Whole Blood 142 135 - 145 mmol/L [facility] K Whole Blood 3.6 3.5 - 5.0 mmol/L [facility] Comment: Please note: Patients with WBC >100,000 may have falsely elevated Potassium levels. Contact the Clinical Chemistry Laboratory if there are any questions. ICa Whole Blood 1.17 1.15 - 1.33 mmol/L [facility] Comment: Note: ??Total bilirubin higher than 20 mg/dL may lead to falsely low ionized calcium. CL Whole Blood 105 98 - 107 mmol/L [facility] Gluc Whole Bld 178 65 - 199 mg/dL [facility] Comment:Diabetes: >=200 mg/d L plus symptoms. Lactate WB 3.0(H) 0.5 - 2.2 mmol/L [facility] FIO2 Art 70 % [facility] PF Ratio Art 136 [facility] Blood specimen (specimen) 07/18/2017 3:55 AM EDT 07/18/2017 3:55 AM EDT Sriram Contreras MD CHEMISTRY ORDERABL ES Performing Organization Address [facility] [place] [address] * (ABNORMAL) POCT Glucose (07/18/2017 3:42 AM EDT) POC Glucose 205(H) 65 - 199 mg/dL [facility] Comment: Supplemental ranges: <140 mg/dL before meals <180 mg/dL all other times of the day Blood specimen (specimen) 07/18/2017 3:42 AM EDT 07/18/2017 3:42 AM EDT Sriram Contreras MD POINT OF CARE TEST ORDERABLES Performing Organization Address [facility] Co de Phone Number [facility] [place] [address] * (ABNORMAL) Magnesium (07/18/2017 2:20 AM EDT) Pathologist [facility] Magnesium 1.09(H) 0.69 - 1.07 mmol/L [facility] Blood specimen (specimen) Venous Draw / Unknown 07/18/2017 2:20 AM EDT 07/18/2017 2:31 AM EDT Narrative Resulting Agency Comment Spec In Lab Sriram Contreras MD [place] [address] * (ABNORMAL) Differential, Automated (07/18/2017 2:20 AM EDT) Pathologist [facility] Neutrophils % 86.8 % [facility] Neutr Abs (ANC) 9.28(H) 1.70 - 6.10 x10(3)/mc L [facility] Lymphocytes % 5.8 % [facility] Lymphocytes Abs 0.6(L) 0.9 - 3.2 x10(3)/ L [facility] Monocytes % 6.5 % [facility] Monocyte Abs 0.7 0.3 - 0.9 x10(3)/ L [facility] Eosinophils % 0.0 % [facility] Eosinophils Abs 0.0 0.0 - 0.4 x10(3)/mc L [facility] Basophils % 0.2 % [facility] Basophils Abs 0.0 0.0 - 0.1 x10(3)/mc L [facility] Immature Gran % 0.70 % [facility] Comment: Immature granulocytes(IG's)percentage and absolute count will include metamyelocytes, myelocytes, and promyelocytes. Blood smears from CBCs yielding IG's will be scanned manually for concordance. If this scan disagrees with the automated IG or if promyelocytes are noted, a manual differential will be performed. Patti Gran Abs 0.08(H) 0.00 - 0.04 x10(3)/ L [facility] Blood specimen (specimen) 07/18/2017 2:20 AM EDT 07/18/2017 2:28 AM EDT Narrative Resulting Agency Comment Spec In Lab Sriram Contreras MD HEMATOLOGY ORDERAB LES Performing Organization Address City/State/[facility] Co de Phone Number [facility] [place] [address] * (ABNORMAL) Hemogram (07/18/2017 2:20 AM EDT) WBC 10.7(H) 4.0 - 9.5 x10(3)/[facility] LABORATORY RBC 4.39(L) 4.58 - 5.54 x10(6)/[facility] Hemoglobin 13.6(L) 13.7 - 16.5 gm/dL [facility] Hematocrit 38.8(L) 40.5 - 48.5 % [facility] MCV 88.4 82.9 - 93.1 [facility] MCH 31.0 27.5 - 32.[address] [facility] MCHC 35.1 32.0 - 35.7 gm/dL [facility] Platelets 147 145 - 357 x10(3)/[facility] LABORATORY RDWSD 43.4 36.0 - 45.0 [facility] RDWCV 13.3 11.4 - 13.8 % [facility] MPV 10.9 7.6 - 12.9 [facility] nRBC % Auto 0.0 % [facility] nRBC Abs Auto 0.000 0.000 - 0.000 x10(3)/[facility] Blood specimen (specimen) 07/18/2017 2:20 AM EDT 07/18/2017 2:28 AM EDT Narrative Resulting Agency Comment Spec In Lab Sriram Contreras MD HEMATOLOGY ORDERAB LES [facility] [place] [address] * (ABNORMAL) Basic Metabolic Panel (non-fasting) (07/18/2017 2:20 AM EDT) Glucose Lvl 181 65 - 199 mg/dL [facility] Comment:Diabetes: >=200 mg/d L plus symptoms BUN 22(H) 10 - 20 mg/dL [facility] Creatinine 0.74(L) 0.80 - 1.50 mg/dL [facility] Comment: Please note that the pediatric reference intervals supplied above were not validated at [facility] [place]. Results from pediatric patients should be interpreted in conjunction to the patient's age, height and muscle mass. Sodium 145 135 - 145 mmol/L [facility] Potassium 3.7 3.5 - 5.0 mmol/L [facility] Comment: Please note: ??Patients with WBC >100,000 may have falsely elevated Potassium levels. ??For accurate Potassium quantification in these patients send serum separator tube (gold top) for subsequent determinations. ??Contact the Clinical Chemistry Laboratory if there are any questions. Chloride 105 98 - 107 mmol/L [facility] CO2 25 22 - 31 mmol/L [facility] Anion Gap 15 5 - 15 mmol/L [facility] Calcium 8.8 8.5 - 10.5 mg/dL [facility] Estimated GFR >60 >=60 [facility] Comment: This estimated GFR (eGFR) [...] the following links into your internet browser. [email or web address] Blood specimen (specimen) 07/18/2017 2:20 AM EDT 07/18/2017 2:28 AM EDT Narrative Resulting Agency Comment Spec In Lab Sriram Contreras MD CHEMISTRY ORDERABL ES [facility] [place] [address] * (ABNORMAL) BLOOD GAS 2 ARTERIAL (07/17/2017 11:36 PM EDT) pH Art 7.51(H) 7.35 - 7.45 [facility] pCO2 Art 32(L) 35 - [address] [facility] pO2 Art 60(L) 85 - [address] [facility] HCO3 Art 25.0 20.0 - 26.0 mmol/L [facility] BE Art 2.0 -3.0 - 3.0 mmol/L [facility] Hgb Blood Gas 14.8 13.7 - 16.5 gm/dL [facility] O2HB Art 92.1(L) 94.0 - 97.0 % [facility] COHB Art 0.3 % [facility] Comment: Nonsmokers: 0.5-1.5% COHB Smokers: Variable, but usually less than 10% Toxic: 20-30% COHB Lethal: Greater than 60% COHB METHB Art 0.5 <=1.5 % [facility] Na Whole Blood 143 135 - 145 mmol/L [facility] K Whole Blood 3.7 3.5 - 5.0 mmol/L [facility] Comment: Please note: Patients with WBC >100,000 may have falsely elevated Potassium levels. Contact the Clinical Chemistry Laboratory if there are any questions. ICa Whole Blood 1.16 1.15 - 1.33 mmol/L [facility] Comment: Note: ??Total bilirubin higher than 20 mg/dL may lead to falsely low ionized calcium. CL Whole Blood 104 98 - 107 mmol/L [facility] Gluc Whole Bld 202(H) 65 - 199 mg/dL [facility] Comment:Diabetes: >=200 mg/d L plus symptoms. Lactate WB 2.9(H) 0.5 - 2.2 mmol/L [facility] FIO2 Art 60 % [facility] PF Ratio Art 100 [facility] Blood specimen (specimen) 07/17/2017 11:36 PM EDT 07/17/2017 11:36 PM EDT Sriram Contreras MD CHEMISTRY ORDERABL ES Performing Organization Address [facility] Co de Phone Number [facility] [place] [address] * (ABNORMAL) POCT Glucose (07/17/2017 11:34 PM EDT) POC Glucose 202(H) 65 - 199 mg/dL [facility] Comment: Supplemental ranges: <140 mg/dL before meals <180 mg/dL all other times of the day Blood specimen (specimen) 07/17/2017 11:34 PM EDT 07/17/2017 11:34 PM EDT Sriram Contreras MD POINT OF CARE TEST ORDERABLES Performing Organization Address [facility] Co de Phone Number [facility] [place] [address] * Magnesium (07/17/2017 10:10 PM EDT) Magnesium 0.87 0.69 - 1.07 mmol/L [facility] Blood specimen (specimen) 07/17/2017 10:10 PM EDT 07/17/2017 10:18 PM EDT Narrative Resulting Agency Comment Spec In Lab Sriram Contreras MD CHEMISTRY ORDERABL ES Performing Organization Address [facility] Co de Phone Number [facility] [place] [address] * (ABNORMAL) BLOOD GAS 2 ARTERIAL (07/17/2017 7:51 PM EDT) pH Art 7.49(H) 7.35 - 7.45 [facility] pCO2 Art 36 35 - 45 mmHg [facility] pO2 Art 67(L) 85 - [address] [facility] HCO3 Art 26.8(H) 20.0 - 26.0 mmol/L [facility] BE Art 3.4(H) -3.0 - 3.0 mmol/L [facility] Hgb Blood Gas 14.3 13.7 - 16.5 gm/dL [facility] O2HB Art 93.4(L) 94.0 - 97.0 % [facility] COHB Art 0.3 % [facility] Comment: Nonsmokers: 0.5-1.5% COHB Smokers: Variable, but usually less than 10% Toxic: 20-30% COHB Lethal: Greater than 60% COHB METHB Art 0.6 <=1.5 % [facility] Na Whole Blood 143 135 - 145 mmol/L [facility] K Whole Blood 3.7 3.5 - 5.0 mmol/L [facility] Comment: Please note: Patients with WBC >100,000 may have falsely elevated Potassium levels. Contact the Clinical Chemistry Laboratory if there are any questions. ICa Whole Blood 1.17 1.15 - 1.33 mmol/L [facility] Comment: Note: ??Total bilirubin higher than 20 mg/dL may lead to falsely low ionized calcium. CL Whole Blood 106 98 - 107 mmol/L [facility] Gluc Whole Bld 178 65 - 199 mg/dL [facility] Comment:Diabetes: >=200 mg/d L plus symptoms. Lactate WB 2.8(H) 0.5 - 2.2 mmol/L [facility] FIO2 Art 60 % [facility] PF Ratio Art 112 [facility] Blood specimen (specimen) 07/17/2017 7:51 PM EDT 07/17/2017 7:51 PM EDT Sriram Contreras MD CHEMISTRY ORDERABL ES Performing Organization Address [facility] [place] [address] * POCT Glucose (07/17/2017 7:50 PM EDT) POC Glucose 153 65 - 199 mg/dL [facility] Comment: Supplemental ranges: <140 mg/dL before meals <180 mg/dL all other times of the day Blood specimen (specimen) 07/17/2017 7:50 PM EDT 07/17/2017 7:50 PM EDT Sriram Contreras MD POINT OF CARE TEST ORDERABLES Performing Organization Address [facility] Co de Phone Number [facility] [place] [address] * (ABNORMAL) BLOOD GAS 2 ARTERIAL (07/17/2017 3:20 PM EDT) pH Art 7.51(H) 7.35 - 7.45 [facility] pCO2 Art 31(L) 35 - [address] [facility] pO2 Art 67(L) 85 - [address] [facility] HCO3 Art 24.3 20.0 - 26.0 mmol/L [facility] BE Art 1.3 -3.0 - 3.0 mmol/L [facility] Hgb Blood Gas 14.1 13.7 - 16.5 gm/dL [facility] O2HB Art 93.8(L) 94.0 - 97.0 % [facility] COHB Art 0.3 % [facility] Comment: Nonsmokers: 0.5-1.5% COHB Smokers: Variable, but usually less than 10% Toxic: 20-30% COHB Lethal: Greater than 60% COHB METHB Art 0.5 <=1.5 % [facility] Na Whole Blood 141 135 - 145 mmol/L [facility] K Whole Blood 3.7 3.5 - 5.0 mmol/L [facility] Comment: Please note: Patients with WBC >100,000 may have falsely elevated Potassium levels. Contact the Clinical Chemistry Laboratory if there are any questions. ICa Whole Blood 1.15(L) 1.15 - 1.33 mmol/L [facility] Comment: Note: ??Total bilirubin higher than 20 mg/dL may lead to falsely low ionized calcium. CL Whole Blood 105 98 - 107 mmol/L [facility] Gluc Whole Bld 204(H) 65 - 199 mg/dL [facility] Comment:Diabetes: >=200 mg/d L plus symptoms. Lactate WB 2.0 0.5 - 2.2 mmol/L [facility] FIO2 Art 50 % [facility] PF Ratio Art 134 [facility] Blood specimen (specimen) 07/17/2017 3:20 PM EDT 07/17/2017 3:20 PM EDT Sriram Contreras MD CHEMISTRY ORDERABL ES Performing Organization Address City/State/[facility] Co de Phone Number [facility] [place] [address] * (ABNORMAL) BLOOD GAS 2 ARTERIAL (07/17/2017 12:50 PM EDT) pH Art 7.51(H) 7.35 - 7.45 [facility] pCO2 Art 30(L) 35 - [address] [facility] pO2 Art 52(L) 85 - [address] [facility] HCO3 Art 23.7 20.0 - 26.0 mmol/L [facility] BE Art 0.8 -3.0 - 3.0 mmol/L [facility] Hgb Blood Gas 14.0 13.7 - 16.5 gm/dL [facility] O2HB Art 89.4(L) 94.0 - 97.0 % [facility] COHB Art 0.3 % [facility] Comment: Nonsmokers: 0.5-1.5% COHB Smokers: Variable, but usually less than 10% Toxic: 20-30% COHB Lethal: Greater than 60% COHB METHB Art 0.5 <=1.5 % [facility] Na Whole Blood 140 135 - 145 mmol/L [facility] K Whole Blood 3.9 3.5 - 5.0 mmol/L [facility] Comment: Please note: Patients with WBC >100,000 may have falsely elevated Potassium levels. Contact the Clinical Chemistry Laboratory if there are any questions. ICa Whole Blood 1.18 1.15 - 1.33 mmol/L [facility] Comment: Note: ??Total bilirubin higher than 20 mg/dL may lead to falsely low ionized calcium. CL Whole Blood 106 98 - 107 mmol/L [facility] Gluc Whole Bld 195 65 - 199 mg/dL [facility] Comment:Diabetes: >=200 mg/d L plus symptoms. Lactate WB 2.3(H) 0.5 - 2.2 mmol/L [facility] FIO2 Art 50 % [facility] PF Ratio Art 104 [facility] Blood specimen (specimen) 07/17/2017 12:50 PM EDT 07/17/2017 12:50 PM EDT Sriram Contreras MD CHEMISTRY ORDERABL ES Performing Organization Address City/State/[facility] Co de Phone Number [facility] [place] [address] * XR Chest PA or AP 1 [...] EDT) pH Art 7.48(H) 7.35 - 7.45 [facility] pCO2 Art 34(L) 35 - [address] [facility] pO2 Art 55(L) 85 - [address] [facility] HCO3 Art 24.7 20.0 - 26.0 mmol/L [facility] BE Art 1.2 -3.0 - 3.0 mmol/L [facility] Hgb Blood Gas 14.1 13.7 - 16.5 gm/dL [facility] O2HB Art 90.4(L) 94.0 - 97.0 % [facility] COHB Art 0.1 % [facility] Comment: Nonsmokers: 0.5-1.5% COHB Smokers: Variable, but usually less than 10% Toxic: 20-30% COHB Lethal: Greater than 60% COHB METHB Art 0.7 <=1.5 % [facility] Na Whole Blood 141 135 - 145 mmol/L [facility] K Whole Blood 4.2 3.5 - 5.0 mmol/L [facility] Comment: Please note: Patients with WBC >100,000 may have falsely elevated Potassium levels. Contact the Clinical Chemistry Laboratory if there are any questions. ICa Whole Blood 1.18 1.15 - 1.33 mmol/L [facility] Comment: Note: ??Total bilirubin higher than 20 mg/dL may lead to falsely low ionized calcium. CL Whole Blood 106 98 - 107 mmol/L [facility] Gluc Whole Bld 194 65 - 199 mg/dL [facility] Comment:Diabetes: >=200 mg/d L plus symptoms. Lactate WB 2.6(H) 0.5 - 2.2 mmol/L [facility] FIO2 Art 40 % [facility] PF Ratio Art 138 [facility] Blood specimen (specimen) 07/17/2017 11:54 AM EDT 07/17/2017 11:54 AM EDT Sriram Contreras MD CHEMISTRY ORDERABL ES [facility] [place] [address] * Cardiac Enzymes (07/17/2017 5:42 AM EDT) Troponin-T <0.01 0.00 - 0.00 ng/mL [facility] Comment: The 99th percentile for Troponin T is less than 0.01 ng/mL, any detectable cTnT concentration using this assay should be considered elevated. According to the third universal definition of myocardial infarction the following criteria with a clinical presentation consistent with acute myocardial ischemia meets the diagnosis for a myocardial infarction (TN). Detection of a rise and/or fall of cTnT, with at least one value greater than the 99th percentile (> or = 0.01) and with at least one of the following ?? Symptoms of ischemia ?? New or presumed new significant UR-glapawd-E wave (ST-T) changes or new left bundle [...] additional sample may be indicated. Reference: Third Alpine Definition of Myocardial Infarction. Journal of the [employer] [employer] 2012;60:1581-98 CK, Total 47 0 - 200 unit/L [facility] Blood specimen (specimen) 07/17/2017 5:42 AM EDT 07/17/2017 5:42 AM EDT Narrative Resulting Agency Comment Spec In Lab Sriram Contreras MD CHEMISTRY ORDERABL ES [facility] [place] [address] * (ABNORMAL) Differential, Automated (07/17/2017 12:30 AM EDT) [facility] Neutrophils % 90.5 % [facility] Neutr Abs (ANC) 8.62(H) 1.70 - 6.10 x10(3)/mc L [facility] Lymphocytes % 3.7 % [facility] Lymphocytes Abs 0.4(L) 0.9 - 3.2 x10(3)/mc L [facility] Monocytes % 4.9 % [facility] Monocyte Abs 0.5 0.3 - 0.9 x10(3)/[facility] Eosinophils % 0.0 % [facility] Eosinophils Abs 0.0 0.0 - 0.4 x10(3)/[facility] Basophils % 0.1 % [facility] Basophils Abs 0.0 0.0 - 0.1 x10(3)/[facility] Immature Gran % 0.80 % [facility] Comment: Immature granulocytes(IG's)percentage and absolute count will include metamyelocytes, myelocytes, and promyelocytes. Blood smears from CBCs yielding IG's will be scanned manually for concordance. If this scan disagrees with the automated IG or if promyelocytes are noted, a manual differential will be performed. Patti Gran Abs 0.08(H) 0.00 - 0.04 x10(3)/[facility] Blood specimen (specimen) 07/17/2017 12:30 AM EDT 07/17/2017 1:13 AM EDT Narrative Resulting Agency Comment Spec In Lab Sriram Contreras MD HEMATOLOGY ORDERAB LES [facility] [place] [address] * (ABNORMAL) Hemogram (07/17/2017 12:30 AM EDT) WBC 9.5 4.0 - 9.5 x10(3)/[facility] RBC 3.98(L) 4.58 - 5.54 x10(6)/[facility] Hemoglobin 12.4(L) 13.7 - 16.5 gm/dL [facility] Hematocrit 36.7(L) 40.5 - 48.5 % [facility] MCV 92.2 82.9 - 93.1 fL [facility] MCH 31.2 27.5 - 32.[address] [facility] MCHC 33.8 32.0 - 35.7 gm/dL [facility] Platelets 133(L) 145 - 357 x10(3)/[facility] RDWSD 47.7(H) 36.0 - 45.[address] [facility] RDWCV 13.8 11.4 - 13.8 % [facility] MPV 10.9 7.6 - 12.9 [facility] nRBC % Auto 0.0 % [facility] nRBC Abs Auto 0.000 0.000 - 0.000 x10(3)/[facility] Blood specimen (specimen) 07/17/2017 12:30 AM EDT 07/17/2017 1:13 AM EDT Narrative Resulting Agency Comment Spec In Lab Sriram Contreras MD HEMATOLOGY ORDERAB LES [facility] [place] [id number] * (ABNORMAL) Basic Metabolic Panel (non-fasting) (07/17/2017 12:30 AM EDT) Glucose Lvl 246(H) 65 - 199 mg/dL [facility] Comment:Diabetes: >=200 mg/d L plus symptoms BUN 17 10 - 20 mg/dL [facility] Creatinine 0.73(L) 0.80 - 1.50 mg/dL [facility] Comment: Please note that the pediatric reference intervals supplied above were not validated at [facility]. Results from pediatric patients should be interpreted in conjunction to the patient's age, height and muscle mass. Sodium 137 135 - 145 mmol/L [facility] Potassium 4.7 3.5 - 5.0 mmol/L [facility] Comment: Please note: ??Patients with WBC >100,000 may have falsely elevated Potassium levels. ??For accurate Potassium quantification in these patients send serum separator tube (gold top) for subsequent determinations. ??Contact the Clinical Chemistry Laboratory if there are any questions. Chloride 103 98 - 107 mmol/L [facility] CO2 21(L) 22 - 31 mmol/L [facility] Anion Gap 13 5 - 15 mmol/L [facility] Calcium 8.3(L) 8.5 - 10.5 mg/dL [facility] Estimated GFR >60 >=60 [facility] Comment: This estimated GFR (eGFR) [...] the following links into your internet browser. [email or web address] Blood specimen (specimen) 07/17/2017 12:30 AM EDT 07/17/2017 1:13 AM EDT Narrative Resulting Agency Comment Spec In Lab Sriram Contreras MD CHEMISTRY ORDERABL ES [facility] [place] [address] * Cardiac Enzymes (07/17/2017 12:30 AM EDT) Troponin-T <0.01 0.00 - 0.00 ng/mL [facility] Comment: The 99th percentile for Troponin T is less than 0.01 ng/mL, any detectable cTnT concentration using this assay should be considered elevated. According to the third universal definition of myocardial infarction the following criteria with a clinical presentation consistent with acute myocardial ischemia meets the diagnosis for a myocardial infarction (TN). Detection of a rise and/or fall of cTnT, with at least one value greater than the 99th percentile (> or = 0.01) and with at least one of the following ?? Symptoms of ischemia ?? New or presumed new significant FS-sacbdtp-U wave (ST-T) changes or new left bundle [...] additional sample may be indicated. Reference: Third Alpine Definition of Myocardial Infarction. Journal of the [place] [employer] 2012;60:1581-98 CK, Total 60 0 - 200 unit/L [facility] Blood specimen (specimen) 07/17/2017 12:30 AM EDT 07/17/2017 1:13 AM EDT Narrative Resulting Agency Comment Spec In Lab Sriram Contreras MD CHEMISTRY ORDERABL ES [facility] [place] [address] * XR Chest PA or AP 1 [...] lung volumes with atelectasis and pulmonary edema. rSiram Contreras MD IMG DX ORDERABLES * Cardiac Enzymes (07/16/2017 5:10 PM EDT) Troponin-T <0.01 0.00 - 0.00 ng/mL [facility] Comment: The 99th percentile for Troponin T is less than 0.01 ng/mL, any detectable cTnT concentration using this assay should be considered elevated. According to the third universal definition of myocardial infarction the following criteria with a clinical presentation consistent with acute myocardial ischemia meets the diagnosis for a myocardial infarction (TN). Detection of a rise and/or fall of cTnT, with at least one value greater than the 99th percentile (> or = 0.01) and with at least one of the following ?? Symptoms of ischemia ?? New or presumed new significant AA-wyfisnh-X wave (ST-T) changes or new left bundle [...] additional sample may be indicated. Reference: Third Alpine Definition of Myocardial Infarction. Journal of the [place] [employer] 2012;60:1581-98 CK, Total 63 0 - 200 unit/L [facility] Blood specimen (specimen) 07/16/2017 5:10 PM EDT 07/16/2017 5:20 PM EDT Narrative Resulting Agency Comment Spec In Lab Sriram Contreras MD CHEMISTRY ORDERABL ES [facility] [place] [address] * EKG 12 Lead (07/16/2017 4:46 PM EDT) Ventricular rate 70 BPM MUSE SYSTEM Atrial Rate 70 BPM MUSE SYSTEM P-R Interval 208 ms MUSE SYSTEM QRS Duration 96 ms MUSE SYSTEM Q-T Interval 404 ms MUSE SYSTEM QTC Calculated (Bezet) 436 ms MUSE SYSTEM Calculated P [place] 57 degrees MUSE SYSTEM Calculated R [place] 54 degrees MUSE SYSTEM Calculated T [place] 50 degrees MUSE SYSTEM INTERPRETATION Sinus rhythm with frequent Premature ventricular complexes in a pattern of bigeminy Otherwise normal ECG Confirmed by MD Ace, Hilton ([id number]) on 07/17/2017 2:06:02 PM MUSE SYSTEM 07/16/2017 4:46 PM EDT 07/17/2017 2:06 PM EDT Sriram Contreras MD ECG ORDERABLES Performing Organization Address [facility] Phone Number MUSE SYSTEM * Magnesium (07/16/2017 4:00 AM EDT) Pathologist [facility] Magnesium 0.82 0.69 - 1.07 mmol/L [facility] Blood specimen (specimen) Venous Draw / Unknown 07/16/2017 4:00 AM EDT 07/16/2017 4:18 AM EDT Narrative Resulting Agency Comment Spec In Lab Sriram Contreras MD CHEMISTRY ORDERABL ES Performing Organization Address [facility] Co de Phone Number [facility] [place] [address] * (ABNORMAL) Differential, Automated (07/16/2017 4:00 AM EDT) Pathologist [facility] Neutrophils % 81.3 % [facility] Neutr Abs (ANC) 8.31(H) 1.70 - 6.10 x10(3)/mc L [facility] Lymphocytes % 10.7 % [facility] Lymphocytes Abs 1.1 0.9 - 3.2 x10(3)/mc L [facility] Monocytes % 6.8 % [facility] Monocyte Abs 0.7 0.3 - 0.9 x10(3)/[facility] Eosinophils % 0.3 % [facility] Eosinophils Abs 0.0 0.0 - 0.4 x10(3)/[facility] Basophils % 0.4 % [facility] Basophils Abs 0.0 0.0 - 0.1 x10(3)/[facility] Immature Gran % 0.50 % [facility] Comment: Immature granulocytes(IG's)percentage and absolute count will include metamyelocytes, myelocytes, and promyelocytes. Blood smears from CBCs yielding IG's will be scanned manually for concordance. If this scan disagrees with the automated IG or if promyelocytes are noted, a manual differential will be performed. Patti Gran Abs 0.05(H) 0.00 - 0.04 x10(3)/[facility] Blood specimen (specimen) 07/16/2017 4:00 AM EDT 07/16/2017 4:16 AM EDT Narrative Resulting Agency Comment Spec In Lab Sriram Contreras MD HEMATOLOGY ORDERAB LES Performing Organization Address City/State/[facility] Co de Phone Number [facility] [place] [address] * (ABNORMAL) Hemogram (07/16/2017 4:00 AM EDT) WBC 10.2(H) 4.0 - 9.5 x10(3)/[facility] RBC 3.95(L) 4.58 - 5.54 x10(6)/[facility] Hemoglobin 12.4(L) 13.7 - 16.5 gm/dL [facility] Hematocrit 37.2(L) 40.5 - 48.5 % [facility] MCV 94.2(H) 82.9 - 93.1 fL [facility] MCH 31.4 27.5 - 32.[address] [facility] MCHC 33.3 32.0 - 35.7 gm/dL [facility] Platelets 126(L) 145 - 357 x10(3)/[facility] RDWSD 50.0(H) 36.0 - 45.[address] [facility] RDWCV 14.3(H) 11.4 - 13.8 % [facility] MPV 10.3 7.6 - 12.[address] [facility] nRBC % Auto 0.0 % [facility] nRBC Abs Auto 0.000 0.000 - 0.000 x10(3)/[facility] Blood specimen (specimen) 07/16/2017 4:00 AM EDT 07/16/2017 4:16 AM EDT Narrative Resulting Agency Comment Spec In Lab Sriram Contreras MD HEMATOLOGY ORDERAB LES [facility] [place] [address] * (ABNORMAL) Basic Metabolic Panel (non-fasting) (07/16/2017 4:00 AM EDT) Glucose Lvl 131 65 - 199 mg/dL [facility] Comment:Diabetes: >=200 mg/d L plus symptoms BUN 16 10 - 20 mg/dL [facility] Creatinine 0.82 0.80 - 1.50 mg/dL [facility] Comment: Please note that the pediatric reference intervals supplied above were not validated at [facility]. Results from pediatric patients should be interpreted in conjunction to the patient's age, height and muscle mass. Sodium 144 135 - 145 mmol/L [facility] Potassium 4.2 3.5 - 5.0 mmol/L [facility] Comment: Please note: ??Patients with WBC >100,000 may have falsely elevated Potassium levels. ??For accurate Potassium quantification in these patients send serum separator tube (gold top) for subsequent determinations. ??Contact the Clinical Chemistry Laboratory if there are any questions. Chloride 106 98 - 107 mmol/L [facility] CO2 21(L) 22 - 31 mmol/L [facility] Anion Gap 17(H) 5 - 15 mmol/L [facility] Calcium 8.1(L) 8.5 - 10.5 mg/dL [facility] Estimated GFR >60 >=60 [facility] Comment: This estimated GFR (eGFR) [...] the following links into your internet browser. [email or web address] Blood specimen (specimen) 07/16/2017 4:00 AM EDT 07/16/2017 4:16 AM EDT Narrative Resulting Agency Comment Spec In Lab Sriram Contreras MD CHEMISTRY ORDERABL ES Performing Organization Address [facility] Co de Phone Number [facility] [place] [address] * POCT Glucose (07/15/2017 12:26 PM EDT) POC Glucose 75 65 - 199 mg/dL [facility] Comment: Supplemental ranges: <140 mg/dL before meals <180 mg/dL all other times of the day Blood specimen (specimen) 07/15/2017 12:26 PM EDT 07/15/2017 12:26 PM EDT Sriram Contreras MD POINT OF CARE TEST ORDERABLES Performing Organization Address City/[facility]/ZIP Co de Phone Number [facility] [place] [address] * (ABNORMAL) Basic Metabolic Panel (non-fasting) (07/15/2017 10:20 AM EDT) Glucose Lvl 111 65 - 199 mg/dL [facility] Comment:Diabetes: >=200 mg/d L plus symptoms BUN 19 10 - 20 mg/dL [facility] Creatinine 0.96 0.80 - 1.50 mg/dL [facility] Comment: Please note that the pediatric reference intervals supplied above were not validated at [facility]. Results from pediatric patients should be interpreted in conjunction to the patient's age, height and muscle mass. Sodium 143 135 - 145 mmol/L [facility] Potassium 4.0 3.5 - 5.0 mmol/L [facility] Comment: Please note: ??Patients with WBC >100,000 may have falsely elevated Potassium levels. ??For accurate Potassium quantification in these patients send serum separator tube (gold top) for subsequent determinations. ??Contact the Clinical Chemistry Laboratory if there are any questions. Chloride 107 98 - 107 mmol/L [facility] CO2 22 22 - 31 mmol/L [facility] Anion Gap 14 5 - 15 mmol/L [facility] Calcium 8.2(L) 8.5 - 10.5 mg/dL [facility] Estimated GFR >60 >=60 [facility] Comment: This estimated GFR (eGFR) [...] the following links into your internet browser. [email or web address] Blood specimen (specimen) 07/15/2017 10:20 AM EDT 07/15/2017 10:24 AM EDT Narrative Resulting Agency Comment Spec In Lab Sriram Contreras MD CHEMISTRY ORDERABL ES Performing Organization Address City/[facility]/ZIP Co de Phone Number [facility] [place] [address] * POCT Glucose (07/15/2017 8:30 AM EDT) [facility] POC Glucose 111 65 - 199 mg/dL [facility] Comment: Supplemental ranges: <140 mg/dL before meals <180 mg/dL all other times of the day Blood specimen (specimen) 07/15/2017 8:30 AM EDT 07/15/2017 8:30 AM EDT Sriram Contreras MD POINT OF CARE TEST ORDERABLES Performing Organization Address [facility] de Phone Number [facility] [place] [address] * (ABNORMAL) BLOOD GAS 2 ARTERIAL (07/15/2017 4:17 AM EDT) Pathologist [facility] pH Art 7.38 7.35 - 7.45 [facility] pCO2 Art 42 35 - [address] [facility] pO2 Art 61(L) 85 - [address] [facility] HCO3 Art 24.6 20.0 - 26.0 mmol/L [facility] BE Art -0.4 -3.0 - 3.0 mmol/L [facility] Hgb Blood Gas 14.0 13.7 - 16.5 gm/dL [facility] O2HB Art 90.6(L) 94.0 - 97.0 % [facility] COHB Art 0.2 % [facility] Comment: Nonsmokers: 0.5-1.5% COHB Smokers: Variable, but usually less than 10% Toxic: 20-30% COHB Lethal: Greater than 60% COHB METHB Art 0.5 <=1.5 % [facility] Na Whole Blood 139 135 - 145 mmol/L [facility] K Whole Blood 4.1 3.5 - 5.0 mmol/L [facility] Comment: Please note: Patients with WBC >100,000 may have falsely elevated Potassium levels. Contact the Clinical Chemistry Laboratory if there are any questions. ICa Whole Blood 1.19 1.15 - 1.33 mmol/L [facility] Comment: Note: ??Total bilirubin higher than 20 mg/dL may lead to falsely low ionized calcium. CL Whole Blood 106 98 - 107 mmol/L [facility] Gluc Whole Bld 130 65 - 199 mg/dL [facility] Comment:Diabetes: >=200 mg/d L plus symptoms. Lactate WB 1.9 0.5 - 2.2 mmol/L [facility] FIO2 Art 35 % [facility] PF Ratio Art 174 [facility] Blood specimen (specimen) 07/15/2017 4:17 AM EDT 07/15/2017 4:17 AM EDT Sriram Contreras MD CHEMISTRY ORDERABL ES [facility] [place] [address] * (ABNORMAL) Differential, Automated (07/15/2017 4:15 AM EDT) Neutrophils % 84.7 % [facility] Neutr Abs (ANC) 12.39(H) 1.70 - 6.10 x10(3)/mc L [facility] Lymphocytes % 6.2 % [facility] Lymphocytes Abs 0.9 0.9 - 3.2 x10(3)/mc L [facility] Monocytes % 8.0 % [facility] Monocyte Abs 1.2(H) 0.3 - 0.9 x10(3)/mc L [facility] Eosinophils % 0.0 % [facility] Eosinophils Abs 0.0 0.0 - 0.4 x10(3)/mc L [facility] Basophils % 0.1 % [facility] Basophils Abs 0.0 0.0 - 0.1 x10(3)/[facility] Immature Gran % 1.00 % [facility] Comment: Immature granulocytes(IG's)percentage and absolute count will include metamyelocytes, myelocytes, and promyelocytes. Blood smears from CBCs yielding IG's will be scanned manually for concordance. If this scan disagrees with the automated IG or if promyelocytes are noted, a manual differential will be performed. Patti Gran Abs 0.14(H) 0.00 - 0.04 x10(3)/[facility] Blood specimen (specimen) 07/15/2017 4:15 AM EDT 07/15/2017 4:28 AM EDT Narrative Resulting Agency Comment Spec In Lab Sriram Contreras MD HEMATOLOGY ORDERAB LES Performing Organization Address City/State/[facility] Co de Phone Number [facility] [place] [address] * (ABNORMAL) Hemogram (07/15/2017 4:15 AM EDT) WBC 14.6(H) 4.0 - 9.5 x10(3)/[facility] RBC 4.16(L) 4.58 - 5.54 x10(6)/[facility] Hemoglobin 13.0(L) 13.7 - 16.5 gm/dL [facility] Hematocrit 38.9(L) 40.5 - 48.5 % [facility] MCV 93.5(H) 82.9 - 93.1 [facility] MCH 31.3 27.5 - 32.[address] [facility] MCHC 33.4 32.0 - 35.7 gm/dL [facility] Platelets 135(L) 145 - 357 x10(3)/[facility] RDWSD 48.8(H) 36.0 - 45.0 [facility] RDWCV 14.2(H) 11.4 - 13.8 % [facility] MPV 10.0 7.6 - 12.[address] [facility] nRBC % Auto 0.0 % [facility] nRBC Abs Auto 0.000 0.000 - 0.000 x10(3)/mcL [facility] Blood specimen (specimen) 07/15/2017 4:15 AM EDT 07/15/2017 4:28 AM EDT Narrative Resulting Agency Comment Spec In Lab Sriram Contreras MD HEMATOLOGY ORDERAB LES Performing Organization Address [facility] de Phone Number [facility] [place] [address] * Potassium (07/14/2017 8:20 PM EDT) Potassium 4.4 3.5 - 5.0 mmol/L [facility] Comment: Please note: ??Patients with [...] MD CHEMISTRY ORDERABL ES Performing Organization Address [facility] de Phone Number [facility] [place] [address] * (ABNORMAL) Magnesium (07/14/2017 8:20 PM EDT) Magnesium 1.08(H) 0.69 - 1.07 mmol/L [facility] Blood specimen (specimen) 07/14/2017 8:20 PM EDT 07/14/2017 8:31 PM EDT Narrative Resulting Agency Comment Spec In Lab Sriram Contreras MD CHEMISTRY ORDERABL ES Performing Organization Address [facility] Co de Phone Number [facility] [place] [address] * Magnesium (07/14/2017 4:30 PM EDT) Pathologist [facility] Magnesium 0.86 0.69 - 1.07 mmol/L [facility] Blood specimen (specimen) 07/14/2017 4:30 PM EDT 07/14/2017 4:50 PM EDT Narrative Resulting Agency Comment Spec In Lab Sriram Contreras MD CHEMISTRY ORDERABL ES Performing Organization Address [facility] Co de Phone Number [facility] [place] [address] * POCT Glucose (07/14/2017 4:26 PM EDT) [facility] POC Glucose 146 65 - 199 mg/dL [facility] Comment: Supplemental ranges: <140 mg/dL before meals <180 mg/dL all other times of the day Blood specimen (specimen) 07/14/2017 4:26 PM EDT 07/14/2017 4:26 PM EDT Sriram Contrreas MD POINT OF CARE TEST ORDERABLES Performing Organization Address [facility] de Phone Number [facility] [place] [address] * EKG 12 Lead (07/14/2017 12:37 PM EDT) [facility] Ventricular rate 67 BPM MUSE SYSTEM Atrial Rate 67 BPM MUSE SYSTEM P-R Interval 216 ms MUSE SYSTEM QRS Duration 100 ms MUSE SYSTEM Q-T Interval 438 ms MUSE SYSTEM QTC Calculated (Bezet) 462 ms MUSE SYSTEM Calculated P [place] 58 degrees MUSE SYSTEM Calculated R [place] 56 degrees MUSE SYSTEM Calculated T [place] 38 degrees MUSE SYSTEM INTERPRETATION Sinus rhythm with 1st degree A-V block Otherwise normal ECG When compared with ECG of 29-MAR-1997 12:50, AL interval has increased Confirmed by MD Radha, Daryl ([id number]) on 07/14/2017 5:07:22 PM MUSE SYSTEM 07/14/2017 12:3 7 PM EDT 07/14/2017 5:07 PM EDT Sriram Contreras MD ECG ORDERABLES MUSE SYSTEM * POCT Glucose (07/14/2017 12:05 PM EDT) POC Glucose 147 65 - 199 mg/dL [facility] Comment: Supplemental ranges: <140 mg/dL before meals <180 mg/dL all other times of the day Blood specimen (specimen) 07/14/2017 12:05 PM EDT 07/14/2017 12:05 PM EDT Sriram Contreras MD POINT OF CARE TEST ORDERABLES Performing Organization Address [facility] de Phone Number [facility] [place] [address] * POCT Glucose (07/14/2017 8:25 AM EDT) POC Glucose 140 65 - 199 mg/dL [facility] Comment: Supplemental ranges: <140 mg/dL before meals <180 mg/dL all other times of the day Blood specimen (specimen) 07/14/2017 8:25 AM EDT 07/14/2017 8:25 AM EDT Sriram Contreras MD POINT OF CARE TEST ORDERABLES Performing Organization Address [facility] de Phone Number [facility] [place] [address] * (ABNORMAL) Differential, Automated (07/14/2017 12:36 AM EDT) Neutrophils % 90.3 % [facility] Neutr Abs (ANC) 13.17(H) 1.70 - 6.10 x10(3)/mc L [facility] Lymphocytes % 3.8 % [facility] Lymphocytes Abs 0.6(L) 0.9 - 3.2 x10(3)/mc L [facility] Monocytes % 5.4 % [facility] Monocyte Abs 0.8 0.3 - 0.9 x10(3)/[facility] LABOR[facility]ORY Eosinophils % 0.0 % [facility] Eosinophils Abs 0.0 0.0 - 0.4 x10(3)/[facility] Basophils % 0.1 % [facility] Basophils Abs 0.0 0.0 - 0.1 x10(3)/[facility] Immature Gran % 0.40 % [facility] Comment: Immature granulocytes(IG's)percentage and absolute count will include metamyelocytes, myelocytes, and promyelocytes. Blood smears from CBCs yielding IG's will be scanned manually for concordance. If this scan disagrees with the automated IG or if promyelocytes are noted, a manual differential will be performed. Patti Gran Abs 0.06(H) 0.00 - 0.04 x10(3)/[facility]ORY Blood specimen (specimen) 07/14/2017 12:36 AM EDT 07/14/2017 12:41 AM EDT Narrative Resulting Agency Comment Spec In Lab Sriram Contreras MD HEMATOLOGY ORDERAB LES [facility] [place] [address] * (ABNORMAL) Hemogram (07/14/2017 12:36 AM EDT) WBC 14.6(H) 4.0 - 9.5 x10(3)/[facility] LABORATORY RBC 4.57(L) 4.58 - 5.54 x10(6)/[facility] Hemoglobin 14.1 13.7 - 16.5 gm/dL [facility] Hematocrit 42.1 40.5 - 48.5 % [facility] MCV 92.1 82.9 - 93.1 fL [facility] MCH 30.9 27.5 - 32.[address] [facility] MCHC 33.5 32.0 - 35.7 gm/dL [facility] Platelets 157 145 - 357 x10(3)/[facility] LABORATORY RDWSD 48.6(H) 36.0 - 45.0 [facility] LABOR[facility]ORY RDWCV 14.4(H) 11.4 - 13.8 % [facility] MPV 10.2 7.6 - 12.[address] [facility] nRBC % Auto 0.0 % [facility] nRBC Abs Auto 0.000 0.000 - 0.000 x10(3)/[facility] Blood specimen (specimen) 07/14/2017 12:36 AM EDT 07/14/2017 12:41 AM EDT Narrative Resulting Agency Comment Spec In Lab Sriram Contreras MD HEMATOLOGY ORDERAB LES [facility] [place] [address] * (ABNORMAL) Magnesium (07/14/2017 12:36 AM EDT) Magnesium 0.65(L) 0.69 - 1.07 mmol/L [facility] Blood specimen (specimen) 07/14/2017 12:36 AM EDT 07/14/2017 12:41 AM EDT Narrative Resulting Agency Comment Spec In Lab Sriram Contreras MD CHEMISTRY ORDERABL ES Performing Organization Address City/[facility]/ZIP Co de Phone Number [facility] [place] [address] * Phosphorus (07/14/2017 12:36 AM EDT) Phosphorus 3.3 2.5 - 4.5 mg/dL [facility] Blood specimen (specimen) 07/14/2017 12:36 AM EDT 07/14/2017 12:41 AM EDT Narrative Resulting Agency Comment Spec In Lab Sriram Contreras MD CHEMISTRY ORDERABL ES Performing Organization Address [facility]/ZIP Co de Phone Number [facility] [place] [address] * Prealbumin (07/14/2017 12:36 AM EDT) Prealbumin 23 20 - 40 mg/dL [facility] Comment: Prealbumin levels are generally lower in the pediatric population; adult concentrations are usually attained near puberty. Blood specimen (specimen) 07/14/2017 12:36 AM EDT 07/14/2017 12:45 AM EDT Narrative Resulting Agency Comment Spec In Lab Sriram Contreras MD CHEMISTRY ORDERABL ES Performing Organization Address [facility] Co de Phone Number [facility] [place] [address] * (ABNORMAL) Basic Metabolic Panel (non-fasting) (07/14/2017 12:36 AM EDT) Glucose Lvl 161 65 - 199 mg/dL [facility] Comment:Diabetes: >=200 mg/d L plus symptoms BUN 16 10 - 20 mg/dL [facility] Creatinine 0.97 0.80 - 1.50 mg/dL [facility] Comment: Please note that the pediatric reference intervals supplied above were not validated at [facility]. Results from pediatric patients should be interpreted in conjunction to the patient's age, height and muscle mass. Sodium 144 135 - 145 mmol/L [facility] Potassium 4.5 3.5 - 5.0 mmol/L [facility] Comment: result rechecked- Please note: ??Patients with WBC >100,000 may have falsely elevated Potassium levels. ??For accurate Potassium quantification in these patients send serum separator tube (gold top) for subsequent determinations. ??Contact the Clinical Chemistry Laboratory if there are any questions. Chloride 108(H) 98 - 107 mmol/L [facility] CO2 19(L) 22 - 31 mmol/L [facility] Anion Gap 17(H) 5 - 15 mmol/L [facility] Calcium 7.7(L) 8.5 - 10.5 mg/dL [facility] Estimated GFR >60 >=60 [facility] Comment: This estimated GFR (eGFR) [...] the following links into your internet browser. [email or web address] [email or web address] CITYnkf Blood specimen (specimen) 07/14/2017 12:36 AM EDT 07/14/2017 12:41 AM EDT Narrative Resulting Agency Comment Spec In Lab Sriram Contreras MD CHEMISTRY ORDERABL ES [facility] [place] [address] * (ABNORMAL) Basic Metabolic Panel (non-fasting) (07/13/2017 9:33 PM EDT) Glucose Lvl 147 65 - 199 mg/dL [facility] Comment:Diabetes: >=200 mg/d L plus symptoms BUN 17 10 - 20 mg/dL [facility] Creatinine 1.16 0.80 - 1.50 mg/dL [facility] Comment: Please note that the pediatric reference intervals supplied above were not validated at [facility]. Results from pediatric patients should be interpreted in conjunction to the patient's age, height and muscle mass. Sodium Not Perf 135 - 145 mmol/L [facility] Comment: Unable to quantitate due to sample hemolysis. ??Sample redraw suggested. Called by: michael, Read back by: maddie rucker, Date/Time:07/13/17 22:12. Potassium Not Perf 3.5 - 5.0 mmol/L [facility] Comment: Unable to quantitate due [...] Chloride Not Perf 98 - 107 mmol/L [facility] Comment: Unable to quantitate due to sample hemolysis. ??Sample redraw suggested. Called by: michael, Read back by: maddie rucker, Date/Time:07/13/17 22:12. CO2 18(L) 22 - 31 mmol/L [facility] Anion Gap Not Calculated 5 - 15 mmol/L [facility] Calcium 7.3(L) 8.5 - 10.5 mg/dL [facility] Estimated GFR >60 >=60 [facility] Comment: This estimated GFR (eGFR) [...] the following links into your internet browser. [email or web address] Blood specimen (specimen) 07/13/2017 9:33 PM EDT 07/13/2017 9:41 PM EDT Narrative Resulting Agency Comment Spec In Lab Sriram Contreras MD CHEMISTRY ORDERABL ES [facility] [place] [address] * XR Chest PA or AP 1 [...] 7:35 PM EDT 07/13/2017 7:[address] [facility] - 07/13/2017 7:35 PM EDT Specimen requisition ordered. ??Separate Pathology report to follow Sriram Contreras MD PATHOLOGY/CYTOLOGY ORDERABLES [facility] [place] [address] * Specimen to Pathology (surgical or derm) (07/13/2017 7:05 PM EDT) AP Specimen 07/13/2017 7:05 PM EDT 07/13/2017 7:05 PM EDT [facility] LAB[facility] - 07/13/2017 7:05 PM EDT Specimen requisition ordered. ??Separate Pathology report to follow Sriram Contreras MD PATHOLOGY/CYTOLOGY ORDERABLES Performing Organization Address [facility] [place] [address] * Specimen to Pathology (surgical or derm) (07/13/2017 6:21 PM EDT) AP Specimen 07/13/2017 6:21 PM EDT 07/13/2017 6:[address] [facility] - 07/13/2017 6:21 PM EDT Specimen requisition ordered. ??Separate Pathology report to follow Sriram Contreras MD PATHOLOGY/CYTOLOGY ORDERABLES Performing Organization Address [facility] [place] [address] * Specimen to Pathology (surgical or derm) (07/13/2017 5:30 PM EDT) AP Specimen 07/13/2017 5:30 PM EDT 07/13/2017 5:30 PM EDT [facility] - 07/13/2017 5:30 PM EDT Specimen requisition ordered. ??Separate Pathology report to follow Sriram Contreras MD PATHOLOGY/CYTOLOGY ORDERABLES Performing Organization Address [facility] [place] [address] * Specimen to Pathology (surgical or derm) (07/13/2017 5:30 PM EDT) AP Specimen 07/13/2017 5:30 PM EDT 07/13/2017 5:30 PM EDT [facility] - 07/13/2017 5:30 PM EDT Specimen requisition ordered. ??Separate Pathology report to follow Sriram Contreras MD PATHOLOGY/[place] [address] * Specimen to Pathology (surgical or derm) (07/13/2017 5:30 PM EDT) AP Specimen 07/13/2017 5:30 PM EDT 07/13/2017 5:[address] [facility] - 07/13/2017 5:30 PM EDT Specimen requisition ordered. ??Separate Pathology report to follow Sriram Contreras MD PATHOLOGY/CYTOLOGY ORDERABLES Performing Organization Address City/[facility]/[place] [address] * Specimen to Pathology (surgical or derm) (07/13/2017 5:30 PM EDT) AP Specimen 07/13/2017 5:30 PM EDT 07/13/2017 5:[address] [facility] - 07/13/2017 5:30 PM EDT Specimen requisition ordered. ??Separate Pathology report to follow Sriram Cnotreras MD PATHOLOGY/CYTOLOGY ORDERABLES Performing Organization Address City/[facility]/ZIP Co de Phone Number [facility] [place] [address] * Specimen to Pathology (surgical or derm) (07/13/2017 5:21 PM EDT) AP Specimen 07/13/2017 5:21 PM EDT 07/13/2017 5:[address] [facility] - 07/13/2017 5:21 PM EDT Specimen requisition ordered. ??Separate Pathology report to follow Sriram Contreras MD PATHOLOGY/[place] [address] * Specimen to Pathology (surgical or derm) (07/13/2017 5:21 PM EDT) AP Specimen 07/13/2017 5:21 PM EDT 07/13/2017 5:21 PM EDT [facility] - 07/13/2017 5:21 PM EDT Specimen requisition ordered. ??Separate Pathology report to follow Sriarm Contreras MD PATHOLOGY/CYTOLOGY ORDERABLES Performing Organization Address [facility] [place] [address] * Specimen to Pathology (surgical or derm) (07/13/2017 5:21 PM EDT) AP Specimen 07/13/2017 5:21 PM EDT 07/13/2017 5:[address] [facility] - 07/13/2017 5:21 PM EDT Specimen requisition ordered. ??Separate Pathology report to follow Sriram Contreras MD PATHOLOGY/CYTOLOGY ORDERABLES Performing Organization Address [facility] [place] [address] * Specimen to Pathology (surgical or derm) (07/13/2017 5:16 PM EDT) AP Specimen 07/13/2017 5:16 PM EDT 07/13/2017 5:16 PM EDT [facility] - 07/13/2017 5:16 PM EDT Specimen requisition ordered. ??Separate Pathology report to follow Sriram Contreras MD PATHOLOGY/CYTOLOGY ORDERABLES Performing Organization Address [facility] [place] [address] * Specimen to Pathology (surgical or derm) (07/13/2017 5:05 PM EDT) AP Specimen 07/13/2017 5:05 PM EDT 07/13/2017 5:05 PM EDT [facility] - 07/13/2017 5:05 PM EDT Specimen requisition ordered. ??Separate Pathology report to follow Sriram Contreras MD PATHOLOGY/[place] [address] * Specimen to Pathology (surgical or derm) (07/13/2017 5:05 PM EDT) AP Specimen 07/13/2017 5:05 PM EDT 07/13/2017 5:[address] [facility] - 07/13/2017 5:05 PM EDT Specimen requisition ordered. ??Separate Pathology report to follow Sriram Contreras MD PATHOLOGY/CYTOLOGY ORDERABLES Performing Organization Address [facility]/[place] [address] * Specimen to Pathology (surgical or derm) (07/13/2017 4:39 PM EDT) AP Specimen 07/13/2017 4:39 PM EDT 07/13/2017 4:[address] [facility] - 07/13/2017 4:39 PM EDT Specimen requisition ordered. ??Separate Pathology report to follow Sriram Contreras MD PATHOLOGY/CYTOLOGY ORDERABLES Performing Organization Address City/[facility]/[place] [address] * Specimen to Pathology (surgical or derm) (07/13/2017 4:35 PM EDT) AP Specimen 07/13/2017 4:35 PM EDT 07/13/2017 4:35 PM EDT [facility] - 07/13/2017 4:35 PM EDT Specimen requisition ordered. ??Separate Pathology report to follow Sriram Contreras MD PATHOLOGY/[place] [address] * Specimen to Pathology (surgical or derm) (07/13/2017 4:35 PM EDT) AP Specimen 07/13/2017 4:35 PM EDT 07/13/2017 4:[address] [facility] - 07/13/2017 4:35 PM EDT Specimen requisition ordered. ??Separate Pathology report to follow Sriram Contreras MD PATHOLOGY/CYTOLOGY ORDERABLES Performing Organization Address [facility] [place] [address] * Specimen to Pathology (surgical or derm) (07/13/2017 3:52 PM EDT) AP Specimen 07/13/2017 3:52 PM EDT 07/13/2017 3:[address] [facility] - 07/13/2017 3:52 PM EDT Specimen requisition ordered. ??Separate Pathology report to follow Sriram Contreras MD PATHOLOGY/CYTOLOGY ORDERABLES Performing Organization Address [facility] Co de Phone Number [facility] [place] [address] * Specimen to Pathology (surgical or derm) (07/13/2017 3:52 PM EDT) AP Specimen 07/13/2017 3:52 PM EDT 07/13/2017 3:[address] [facility] - 07/13/2017 3:52 PM EDT Specimen requisition ordered. ??Separate Pathology report to follow Sriram Contreras MD PATHOLOGY/CYTOLOGY ORDERABLES Performing Organization Address [facility] Co de Phone Number [facility] [place] [address] * (ABNORMAL) BLOOD GAS 2 ARTERIAL (07/13/2017 3:46 PM EDT) pH Art 7.31(L) 7.35 - 7.45 [facility] pCO2 Art 37 35 - [address] [facility] pO2 Art 103 85 - [address] [facility] HCO3 Art 17.8(L) 20.0 - 26.0 mmol/L [facility] BE Art -8.5(L) -3.0 - 3.0 mmol/L [facility] Hgb Blood Gas 15.1 13.7 - 16.5 gm/dL [facility] O2HB Art 96.6 94.0 - 97.0 % [facility] COHB Art 0.4 % [facility] Comment: Nonsmokers: 0.5-1.5% COHB Smokers: Variable, but usually less than 10% Toxic: 20-30% COHB Lethal: Greater than 60% COHB METHB Art 0.3 <=1.5 % [facility] Na Whole Blood 139 135 - 145 mmol/L [facility] K Whole Blood 4.5 3.5 - 5.0 mmol/L [facility] Comment: Please note: Patients with WBC >100,000 may have falsely elevated Potassium levels. Contact the Clinical Chemistry Laboratory if there are any questions. ICa Whole Blood 1.12(L) 1.15 - 1.33 mmol/L [facility] Comment: Note: ??Total bilirubin higher than 20 mg/dL may lead to falsely low ionized calcium. CL Whole Blood 110(H) 98 - 107 mmol/L [facility] Gluc Whole Bld 118 65 - 199 mg/dL [facility] Comment:Diabetes: >=200 mg/d L plus symptoms. Lactate WB 2.9(H) 0.5 - 2.2 mmol/L [facility] Blood specimen (specimen) 07/13/2017 3:46 PM EDT 07/13/2017 3:46 PM EDT Sriram Contreras MD CHEMISTRY ORDERABL ES [facility] [place] [address] * (ABNORMAL) BLOOD GAS 2 ARTERIAL (07/13/2017 2:06 PM EDT) pH Art 7.32(L) 7.35 - 7.45 [facility] pCO2 Art 32(L) 35 - [address] [facility] pO2 Art 96 85 - [address] [facility] HCO3 Art 16.0(L) 20.0 - 26.0 mmol/L [facility] BE Art -10.1(L) -3.0 - 3.0 mmol/L [facility] Hgb Blood Gas 14.0 13.7 - 16.5 gm/dL [facility] O2HB Art 96.1 94.0 - 97.0 % [facility] COHB Art 1.1 % [facility] Comment: Nonsmokers: 0.5-1.5% COHB Smokers: Variable, but usually less than 10% Toxic: 20-30% COHB Lethal: Greater than 60% COHB METHB Art 0.3 <=1.5 % [facility] Na Whole Blood 139 135 - 145 mmol/L [facility] K Whole Blood 3.8 3.5 - 5.0 mmol/L [facility] Comment: Please note: Patients with WBC >100,000 may have falsely elevated Potassium levels. Contact the Clinical Chemistry Laboratory if there are any questions. ICa Whole Blood 1.02(L) 1.15 - 1.33 mmol/L [facility] Comment: Note: ??Total bilirubin higher than 20 mg/dL may lead to falsely low ionized calcium. CL Whole Blood 115(H) 98 - 107 mmol/L [facility] Gluc Whole Bld 111 65 - 199 mg/dL [facility] Comment:Diabetes: >=200 mg/d L plus symptoms. Lactate WB 2.5(H) 0.5 - 2.2 mmol/L [facility] Blood specimen (specimen) 07/13/2017 2:06 PM EDT 07/13/2017 2:06 PM EDT Sriram Contreras MD CHEMISTRY ORDERABL ES [facility] [place] [address] * (ABNORMAL) Comprehensive metabolic panel (non-fasting) (07/13/2017 12:56 PM EDT) Glucose Lvl 155 65 - 199 mg/dL [facility] Comment:Diabetes: >=200 mg/d L plus symptoms BUN 17 10 - 20 mg/dL [facility] Creatinine 1.06 0.80 - 1.50 mg/dL [facility] Comment: Please note that the pediatric reference intervals supplied above were not validated at [facility] [place]. Results from pediatric patients should be interpreted in conjunction to the patient's age, height and muscle mass. Sodium 142 135 - 145 mmol/L [facility] Potassium 5.7(H) 3.5 - 5.0 mmol/L [facility] Comment: Please note: ??Patients with WBC >100,000 may have falsely elevated Potassium levels. ??For accurate Potassium quantification in these patients send serum separator tube (gold top) for subsequent determinations. ??Contact the Clinical Chemistry Laboratory if there are any questions. Chloride 108(H) 98 - 107 mmol/L [facility] CO2 20(L) 22 - 31 mmol/L [facility] Anion Gap 14 5 - 15 mmol/L [facility] Calcium 7.9(L) 8.5 - 10.5 mg/dL [facility] Total Protein 6.2 6.1 - 8.0 gm/dL [facility] Albumin 3.6 3.2 - 5.2 gm/dL [facility] AST 15 0 - 39 unit/L [facility] ALT 13 0 - 55 unit/L [facility] Alk Phos 70 40 - 120 unit/L [facility] Total Bilirubin 0.2 0.2 - 1.3 mg/dL [facility] Estimated GFR >60 >=60 [facility] Comment: This estimated GFR (eGFR) [...] the following links into your internet browser. [email or web address] Blood specimen (specimen) 07/13/2017 12:56 PM EDT 07/13/2017 1:02 PM EDT Narrative Resulting Agency Comment Spec In Lab Sriram Contreras MD CHEMISTRY ORDERABL ES [facility] [place] [address] * (ABNORMAL) BLOOD GAS 2 ARTERIAL (07/13/2017 12:15 PM EDT) pH Art 7.34(L) 7.35 - 7.45 [facility] pCO2 Art 39 35 - [address] [facility] pO2 Art 68(L) 85 - [address] [facility] HCO3 Art 20.4 20.0 - 26.0 mmol/L [facility] BE Art -5.4(L) -3.0 - 3.0 mmol/L [facility] Hgb Blood Gas 15.8 13.7 - 16.5 gm/dL [facility] O2HB Art 91.8(L) 94.0 - 97.0 % [facility] COHB Art 0.9 % [facility] Comment: Nonsmokers: 0.5-1.5% COHB Smokers: Variable, but usually less than 10% Toxic: 20-30% COHB Lethal: Greater than 60% COHB METHB Art 0.3 <=1.5 % [facility] Na Whole Blood 138 135 - 145 mmol/L [facility] K Whole Blood 5.7(H) 3.5 - 5.0 mmol/L [facility] Comment: Please note: Patients with WBC >100,000 may have falsely elevated Potassium levels. Contact the Clinical Chemistry Laboratory if there are any questions. ICa Whole Blood 1.17 1.15 - 1.33 mmol/L [facility] Comment: Note: ??Total bilirubin higher than 20 mg/dL may lead to falsely low ionized calcium. CL Whole Blood 109(H) 98 - 107 mmol/L [facility] Gluc Whole Bld 125 65 - 199 mg/dL [facility] Comment:Diabetes: >=200 mg/d L plus symptoms. Lactate WB 3.7(H) 0.5 - 2.2 mmol/L [facility] Blood specimen (specimen) 07/13/2017 12:15 PM EDT 07/13/2017 12:15 PM EDT Sriram Contreras MD CHEMISTRY ORDERABL ES Performing Organization Address City/State/[facility] Co de Phone Number [facility] [place] [address] * Surgical Pathology Report (07/13/2017 12:04 PM EDT) Surgical Pathology Report [id number] ? Location: ICUS; IC14; A The signing [...] ? All other margins are negative. [facility] e[facility] January 2016 Annual Release Electronically signed by: [...] iglottic): Green ??Right epiglottis: Blue ??Lateral pharynx: Ector ??Base of tongue mucosa + deep: Blue [...] edge; (6) tumor to closest lateral pharynx (Ector) and deep specimen edges (black); (7) tumor [...] SECTION DIAGNOSIS 07/13/17 17:07 Electronically signed by: ??Mey Lockwood MD Verified: ??07/13/2017 ?Pathologist This intraoperative consultation should be interpreted as a preliminary diagnosis pending review of the entire specimen and special studies, if any. ?Frozen Section FROZEN SECTION DIAGNOSIS AFS - Anterior deep tongue base, right for frozen section: Carcinoma is present. 07/13/17 12:23 Electronically signed by: ??Fabián INGRAM, Mey Comer Verified: ??07/13/2017 ?Pathologist This intraoperative consultation should be interpreted as a preliminary diagnosis pending review of the entire specimen and special studies, if any. [facility] 07/13/2017 12:0 4 PM EDT Sriram Contreras MD PATHOLOGY/CYTOLOGY ORDERABLES Performing Organization Address City/[facility]/[place] [address] * Specimen to Pathology (surgical or derm) (07/13/2017 12:02 PM EDT) AP Specimen 07/13/2017 12:0 2 PM EDT 07/13/2017 12:[address] [facility] - 07/13/2017 12:02 PM EDT Specimen requisition ordered. ??Separate Pathology report to follow Sriram Contreras MD PATHOLOGY/CYTOLOGY ORDERABLES Performing Organization Address City/[facility]/[place] [address] * (ABNORMAL) BLOOD GAS 2 ARTERIAL (07/13/2017 10:35 AM EDT) pH Art 7.31(L) 7.35 - 7.45 [facility] pCO2 Art 45 35 - 45 mmHg [facility] pO2 Art 87 85 - 104 mmHg [facility] HCO3 Art 22.2 20.0 - 26.0 mmol/L [facility] BE Art -4.0(L) -3.0 - 3.0 mmol/L [facility] Hgb Blood Gas 15.6 13.7 - 16.5 gm/dL [facility] O2HB Art 95.0 94.0 - 97.0 % [facility] COHB Art 0.9 % [facility] Comment: Nonsmokers: 0.5-1.5% COHB Smokers: Variable, but usually less than 10% Toxic: 20-30% COHB Lethal: Greater than 60% COHB METHB Art 0.0 <=1.5 % [facility] Na Whole Blood 138 135 - 145 mmol/L [facility] K Whole Blood 5.0 3.5 - 5.0 mmol/L [facility] Comment: Please note: Patients with WBC >100,000 may have falsely elevated Potassium levels. Contact the Clinical Chemistry Laboratory if there are any questions. ICa Whole Blood 1.20 1.15 - 1.33 mmol/L [facility] Comment: Note: ??Total bilirubin higher than 20 mg/dL may lead to falsely low ionized calcium. CL Whole Blood 108(H) 98 - 107 mmol/L [facility] Gluc Whole Bld 119 65 - 199 mg/dL [facility] Comment:Diabetes: >=200 mg/d L plus symptoms. Lactate WB 2.1 0.5 - 2.2 mmol/L [facility] Blood specimen (specimen) 07/13/2017 10:35 AM EDT 07/13/2017 10:35 AM EDT Sriram Contreras MD CHEMISTRY ORDERABL ES [facility] [place] [address] * ABORH Recheck Status (07/13/2017 6:27 AM EDT) ABORH Recheck Order Order Placed [facility] ABORH Type Recheck Complete [facility] Blood specimen (specimen) 07/13/2017 6:27 AM EDT 07/13/2017 6:38 AM EDT Narrative Resulting Agency Comment Spec In Lab Sriram Contreras MD BLOOD BANK LAB ORD ERABLES Performing Organization Address [facility] Co de Phone Number [facility] [place] [address] * Antibody screen (07/13/2017 6:27 AM EDT) Ab Screen Interp Negative [facility] Expires at [id number] on: 07/16/2017 [facility] Blood specimen (specimen) 07/13/2017 6:27 AM EDT 07/13/2017 6:43 AM EDT Narrative Resulting Agency Comment Spec In Lab Sriram Contreras MD BLOOD BANK LAB ORD ERABLES Performing Organization Address [facility] Co de Phone Number [facility] [place] [address] * ABO/Rh Typing (07/13/2017 6:27 AM EDT) ABORH Type O Neg [facility] Blood specimen (specimen) 07/13/2017 6:27 AM EDT 07/13/2017 6:43 AM EDT Narrative Resulting Agency Comment Spec In Lab Sriram Contreras MD BLOOD BANK LAB ORD ERABLES Performing Organization Address [facility] de Phone Number [facility] [place] [address] documented in this encounter Visit Diagnoses Not on filedocumented in this encounter Admitting Diagnoses Diagnosis Head and neck cancer Malignant neoplasm of head, face, and neck documented in this encounter Administered Medications Inactive Administered Medications - up to 3 most recent administrations Medication Order MAR Action Action Date Dose Rate Site acetaminophen (TYLENOL) tablet 650 mg 650 mg, [...] Given 07/14/2017 4:28 PM EDT 6 puffs atropine injection 0.5 mg 0.5 mg, Intravenous, [...] Given 07/28/2017 9:36 AM EDT 15 mLs enoxaparin (LOVENOX) injection 100 mg 100 mg, Subcutaneous, EVERY 12 HOURS SCHEDULED (2 times per day), First dose on Wed07/27/17 at 1700, Until Discontinued, Routine Given 07/29/2017 10:22 AM EDT 100 mg Given 07/28/2017 9:35 PM EDT 100 mg Given 07/28/2017 9:35 AM EDT 100 mg flu vacc (65 yrs+) (PF) (FLUZONE HD) IM injection 0.5 mL 0.5 mL, Intramuscular, PRIOR TO DISCHARGE, 1 dose, Starting on Wed07/28/17 at 1317, Until Wed07/29/17 at 1535, Per Protocol, Routine hydrALAZINE (APRESOLINE) injection 5 mg 5 mg, Intravenous, EVERY 4 HOURS PRN, Starting on Wed07/17/17 at 1009, Until Wed07/29/17 at 1535, High Blood Pressure Given 07/25/2017 2:24 AM EDT 5 mg Given 07/18/2017 1:22 PM EDT 5 mg Given 07/18/2017 6:35 AM EDT 5 mg Lactobacillus (BACID) tablet 1 tablet 1 tablet, Oral, DAILY, First dose on 07/24/17 at 1245, Until Discontinued, Routine Given 07/29/2017 9:22 AM EDT 1 tablet Given 07/28/2017 9:35 AM EDT 1 tablet Given 07/26/2017 9:47 AM EDT 1 tablet melatonin tablet 3 mg 3 mg, Oral, NIGHTLY, First dose on Shabana 07/29/17 at 0430, Until Discontinued, Routine Given 07/29/2017 4:20 AM EDT 3 mg meTOPROLOL (LOPRESSOR) injection 5 mg 5 mg, Intravenous, EVERY 5 MIN PRN, Starting on 07/19/17 at 1732, Until Shabana 07/29/17 at 1535, High Blood Pressure, Elevated Heart Rate, For afib HR greater than 110 Given 07/19/2017 5:25 PM EDT 5 mg Given 07/19/2017 5:00 PM EDT 5 mg nystatin (MYCOSTATIN) 100,000 unit/mL oral suspension 500,000 [...] Given 07/28/2017 9:35 AM EDT 40 mg polyethylene glycol (MIRALAX) packet 17 g 17 g, Per NG tube, DAILY PRN, Starting on Wed07/21/17 at 0845, Until Wed07/29/17 at 1535, Constipation, Routine potassium chloride (KAYCIEL) 20 mEq/15 mL oral solution 20-60 mEq 20-60 mEq, Per NG tube, EVERY 4 HOURS PRN, Starting on Wed07/19/17 at 0538, Until Wed07/29/17 at 1535, hypokalemia, For serum potassium: 3.9 [...] Given 07/23/2017 1:23 AM EDT 40 mEq tamsulosin (FLOMAX) ER capsule 0.4 mg 0.4 mg, Oral, DAILY, First dose on Wed07/27/17 at 1400, Until Discontinued, DO NOT CRUSH OR OPEN, Routine Given 07/29/2017 9:23 AM EDT 0.4 mg Given 07/28/2017 9:35 AM EDT 0.4 mg Given 07/27/2017 1:30 PM EDT 0.4 mg documented in this encounter Active and Recently [...] Dixie Randhawa RN)0935 (Given - Provider: Jv Valdez, BRENNA)1235 (Given - Provider: Jeannie Stiles RN)1700 (Given - Provider: Jeannie Stiles RN)2135 (Given - Provider: Abeba Porter, BRENNA) 0000 (Not Given - Provider: Abeba Porter RN - Reason: Patient/family refused)0358 (Given - Provider: Abeba Porter RN)0922 (Given - Provider: Radha Colon, RN)1320 (Given - Provider: Radha Colon, RN) chlorhexidine (PERIDEX) 0.12 % oral solution 15 mL 15 mL, Oral, 2 TIMES DAILY, First dose on Wed07/13/17 at 2115, Until Discontinued, Swab oral cavity. Ventilator-associated pneumonia prophylaxis, Routine 1055 (Given - Provider: Jeannie Stiles RN)2053 (Given - Provider: Dixie Randhawa RN) 0936 (Given - Provider: Jv Valdez RN)213 (Given - Provider: Abeba Porter, BRENNA) 0923 (Given - Provider: Radha Colon, RN) enoxaparin (LOVENOX) injection 100 mg 100 mg, Subcutaneous, EVERY 12 HOURS SCHEDULED (2 times per day), First dose on Wed07/27/17 at 1700, Until Discontinued, Routine 1608 (Given - Provider: Jeannie Stiles RN) 0935 (Given - Provider: Jv Valdez RN)213 (Given - Provider: Abeba Porter, BRENNA) 1022 (Given - Provider: Radha Colon, RN - Comment: missing dose) insulin lispro (humaLOG) [...] on 07/24/17 at 1245, Until Discontinued, Routine 0900 (Not Given - Provider: Jeannie Stiles RN - Reason: Loss of access) 0935 (Given - Provider: Jv Valdez RN) 0922 (Given - Provider: Radha Colon RN) magnesium sulfate 2 g in sterile water 50 mL (COMPLETED) 2 g, Intravenous, ONCE, 1 dose, On e 07/27/17 at 1130, Administer over 120 Minutes 1158 (New Bag - Provider: Jeannie Stiles RN)1358 (Stopped - Provider: Jv Valdez RN) melatonin tablet 3 mg 3 mg, Oral, NIGHTLY, First dose on Shabana 07/29/17 at 0430, Until Discontinued, Routine 0420 (Given - Provider: Aebba Porter, BRENNA) nystatin (MYCOSTATIN) 100,000 unit/mL oral suspension 500,000 Units 500,000 Units, Oral, 4 TIMES DAILY, First dose on Wed07/22/17 at 0900, Until Discontinued, Routine 1054 (Given - Provider: Jeannie Stiles RN)1330 (Given - Provider: Jeannie Stiles RN)1720 (Given - Provider: Jv Valdez, RN)2054 (Given - Provider: Dixie Randhawa RN) 0935 (Given - Provider: Jv Valdez, RN)1235 (Given - Provider: Jeannie Stiles RN)1700 (Given - Provider: Jeannie Stiles, BRENNA)2135 (Given - Provider: Abeba Porter, BRENNA) 0923 [...] RN) 0935 (See Alternative - Provider: Jv Valdez RN) 0923 (See Alternative - Provider: Radha Colon, RN) pantoprazole (PROTONIX) tablet 40 mg(Linked Group 1) 40 mg, Oral, DAILY, First dose on Wed07/14/17 at 0900, Until Discontinued, DO NOT CRUSH OR OPEN If unable to take PO, may give IV 1054 (See Alternative - Provider: Jeannie Stiles RN) 0935 (Given - Provider: Jv Valdez, BRENNA) 0923 (Given - Provider: Radha Colon, RN) piperacillin-tazobactam (ZOSYN) 4.5 g vial attach to sodium chloride 0.9% 100 mL Mini-Bag Plus (COMPLETED) 4.5 g, Intravenous, EVERY 8 HOURS, 20 doses, First dose on Wed07/21/17 at 1045, Last dose on Wed07/27/17 at 1845, Administer over 4 Hours, Warning Vesicant/Irritant Medication , Indication for (Active or Suspected): Pneumonia (Health-Care) 0153 (Stopped - Provider: Lorna Browne, RN)0400 (New Bag - Provider: Lorna Browne, RN)0800 (Stopped - Provider: Jeannie Stiles, BRENNA)1125 (New Bag - Provider: Jeannie Stiles, RN)1525 (Stopped - Provider: Jeannie Stiles, RN)1857 (New Bag - Provider: Jeannie Stiles, RN) 0025 (Stopped - Provider: Dixie Randhawa RN) tamsulosin (FLOMAX) ER capsule 0.4 mg 0.4 mg, Oral, DAILY, First dose on Wed07/27/17 at 1400, Until Discontinued, DO NOT CRUSH OR OPEN, Routine 1330 (Given - Provider: Jeannie Stiles RN) 0935 (Given - Provider: Jv Valdez, BRENNA) 0923 (Given - Provider: Radha Colon RN) Continuous Medication Order 07/27/2017 07/28/2017 07/29/2017 heparin [...] Embolism 0322 (Rate/Dose Verify - Provider: Lorna Browne, RN)0634 (New Bag - Provider: Lorna Browne [...] PRN, Starting on Wed07/13/17 at 2036, Until Wed07/29/17 at 1535, Constipation, if no BM in [...] dose, Starting on Wed07/28/17 at 1317, Until Wed07/29/17 at 1535, Per Protocol, Routine hydrALAZINE (APRESOLINE) injection 5 mg 5 mg, Intravenous, EVERY 4 HOURS PRN, Starting on Wed07/17/17 at 1009, Until Wed07/29/17 at 1535, High Blood Pressure meTOPROLOL (LOPRESSOR) injection 5 mg 5 mg, Intravenous, EVERY 5 MIN PRN, Starting on Wed07/19/17 at 1732, Until Wed07/29/17 at 1535, High Blood Pressure, Elevated Heart Rate, For afib HR greater than 110 polyethylene glycol (MIRALAX) packet 17 g 17 g, Per NG tube, DAILY PRN, Starting on Wed07/21/17 at 0845, Until Wed07/29/17 at 1535, Constipation, Routine potassium chloride (KAYCIEL) 20 mEq/15 mL oral solution 20-60 mEq 20-60 mEq, Per NG tube, EVERY 4 HOURS PRN, Starting on Wed07/19/17 at 0538, Until Wed07/29/17 at 1535, hypokalemia, For serum potassium: 3.9 [...] Embolism documented in this encounter Care Teams Software Engineer Sales Relationship Specialty Start Date End Date Jovon Sifuentes MD [address] [place] [address] PCP - General 09/30/10 09/10/21 documented as of this encounter
--- OUTSIDE RECORDS SUMMARY | 2024-05-18 11:32 | XMS_ITS | Encounter Summary ---
[place] [address] Care Team Providers Care Airline Manager Name Role Phone Jovon Sifuentes MD Primary Care Provider [phone] Reason for Visit * Auth/Cert Specialty Diagnoses [...] Expiration Date Visits Re quested Visits Authorized [id number] 1 1 Encounter Details Date Type Department Care Team (Late st Contact Info) Description 07/16/2017 12:05 PM EDT Anesthesia [place] [address] Brock Tang MD [facility] [place] [address] Biju Blue MD [facility] [place] [address] Anesthesia Record Procedure Summary Procedure Name Responsible Anesthesiologist Anesthesia Start Time Anesthesia Stop Time LARYNGOSCOPY, WITH MICROSCOPE (WRVU 2.57) (Throat) Brock Tang MD 07/16/17 1205 07/16/17 1235 Events Date Time Event Comment 07/16/2017 1205 AN Verify 1205 Start 1205 An Start Data 1228 Transport 1228 an stop data 1235 Recovery or ICU Handoff Krystal ent care was transferred to the destination unit staff after review of the patient's medical history, current anesthetic/surgical status and plan, according to the Provider Handoff Checklist. 1235 Stop 1246 Meds Name Total Propofol 200 mg Remifentanil 250 mcg Lactated Ringers 0 mL * Agents Name O2 Air N2O Sevoflurane (et) * Blood No blood administrations on file. Lines, Drains, and Airways Type Details Placement Removal (RETIRED) Peripheral IV Line - Single Lumen 05/24/17; 0836; metacarpal vein (top of hand), right; [id number] catheter system; 20 gauge, 1 in length; distraction, intradermal injection, tolerated well, appears comfortable; 07/29/17; 1331 05/24/17 0836 by Leslye Escobar RN 07/29/17 1331 by Radha Colon RN Incision 05/24/17; 1003; (tongue); 07/06/22 (LDA cleanup utility RA#[id number]); 1715 (LDA cleanup utility RA#[id number]) 05/24/17 1003 by Ellen Curry RN 07/06/22 1715 by Severino Caputo Incision 07/13/17; neck; 07/06/22 (LDA cleanup utility RA#[id number]); 1715 (LDA cleanup utility RA#[id number]) 07/13/17 0000 by Lizy Villar RN 07/06/22 1715 by Severino Caputo Urethral Catheter 07/13/17; 0815; Surg daisy longer than 2 hours; Physician order; indwelling catheter with core temperature probe; latex; 14; inserted at this facility; 1; 10; 10; other (see comments) (Patient under General Anesthesia); leg bag to dependent drainage; urethral catheter removed; 07/26/17; 1702 07/13/17 0815 by Pita Banuelos RN 07/26/17 1702 by Polly Payne ETT Mask Ventilation: Ea sy (1); ETT Type: Cuffed, Nasal, SANTIAGO; ETT Size: 7.5 mm; Mac Blade: 4; Indirect: Video; Notes: Asleep, Pre-O2, Stylette; Attempts: 2; Laryngoscopy Grade: 2; ETT Placement Verified By: Auscultation, Capnometry, Visual; Inserted by: Karla Chavarria CRNA; Removal Date: 07/17/17; Removal Time: 1034 07/13/17 0815 by Karla Chavarria, FISHER HAND LINE 07/17/17 1034 by Miguelina Puente RT Arterial Line 07/13/17; 0842; radi al artery, right; 20 gauge; Karla Chavarria CRNA; Sterile Prep, Sterile Gloves; catheter not patent, catheter intact; 07/18/17; 201407/13/17 0842 by Karla Chavarria CRNA 07/18/172014 by Arely Iqbal, RN (RETIRED) Peripheral IV Line - Single Lumen 07/13/17; 0850; median vein (underside of arm), left; [id number] catheter system; 18 gauge; Juanchman; removed inadvertently, catheter/device intact; 07/20/17; 0200 07/13/17 0850 by Karla Chavarria, FISHER HAND LINE 07/20/17 0200 by Shannon Toribio RN NG/OG Tube 07/13/17; 1600; nasogastric; 12 Fr; right nostril; medication administration; Secured; 07/25/17; 2313 07/13/17 1600 by Emma Browne RN 07/25/17 2313 by Kayley Olivo RN Drain/Device Site 07/13/17; 1758; Righ t; neck; collapsible closed device; 07/20/17; 0830 07/13/17 1758 by Lizy Villar RN 07/20/17 0830 by Danielle Helton RN Drain/Device Site 07/13/17; 1759; Righ t; neck; collapsible closed device; 07/20/17; 0830 07/13/17 1759 by Lizy Villar RN 07/20/17 0830 by Danielle Helton RN (RETIRED) Peripheral IV Line - Single Lumen 07/16/17; 0600; median cubital vein (antecubital fossa), right; 18 gauge; removed per policy/procedure; 07/28/17; 1105 07/16/17 0600 by Brook Horton RN 07/28/17 1105 by Jeannie Stiles RN documented in this encounter Social History Tobacco Use Types Packs/Day Years [...] on file documented as of this encounter OR Notes * Anesthesia Postprocedure Evaluation - Brock Tang MD - 07/16/2017 12:47 PM EDT [facility] Department of Anesthesiology Post-procedure Note Patient: Jose Bee Procedure Summary Date Anesthesia Start Anesthesia Stop Room / Location 07/16/17 1205 1235 [facility] OR 04 / MH MAIN OR Procedure Diagnosis Surgeon Responsible Provider LARYNGOSCOPY, WITH MICROSCOPE (WRVU 2.57) (N/A Throat) (Intubation) Sriram Contreras MD Pouliot, Ryan C, MD All Anesthesia Providers: Anesthesiologist: Brock Tang MD FISHER HAND LINE: Karla Chavarria CRNA Last (1hr) Vitals: BP Temp Pulse Resp SpO2 Patient Location: ICU Level of Consciousness: Sedated (Pharmacologic/Intentional) Pain Management: Pain Being Addressed PONV: None Cardiovascular Status: Hemodynamically Stable Respiratory Status: Intubated/Ventilated Postoperative Fluid Status: Intravascular EUvolemia Possible Anesthetic Complications: NONE apparent at time of evaluation Final Primary Anesthesia Type: General (The anesthetic type performed was the same as planned.) Comments: * Anesthesia Preprocedure Evaluation - Brock Tang MD - 07/15/2017 3:25 PM EDT Pre-Anesthesia Evaluation for: Jose Bee a 66 y.o. male. Procedure(s): TRACHEOSTOMY, PLANNED (WRVU 7) Patient Active Problem List Diagnosis ??? Head and neck cancer ??? KORI on CPAP ??? Adult BMI 30+ ??? Atrial fibrillation March 2017: noted in ED in [facility]. Previously noted to be paroxysmal. No awareness. CHADS2-VASc=1 (age). Started on apixaban for PE ??? Acute pulmonary embolism Malaise, low grade fever, productive cough with hemoptysis, R chest and shoulder pain March 2017: segmental RLL clots, focal consolidation, small effusion noted on CT Apixaban (and course of antibiotics) 03/29/2017 ??? Benign prostatic hyperplasia ??? 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 Treatment planning in progress 05/2017 Past Medical History: Diagnosis Date ??? Arthritis ??? Atrial fibrillation ??? BPH (benign prostatic hyperplasia) ??? Cataract, right eye ??? ED (erectile dysfunction) ??? Hypothyroidism ??? Pulmonary embolism Past Surgical History: Procedure Laterality Date ??? ACHILLES TENDON SURGERY Right 1996 [facility] ??? KNEE ARTHROSCOPY [facility] ??? PRO BIOPSY OROPHARYNX N/A 05/24/2017 BIOPSY, OROPHARYNX (WRVU 1.44) performed by Zafar Madera MD at [facility] MAIN OR ??? PRO LARYNGOSCOPY, DIRCT, OP SCOPE, BIOPSY N/A 05/24/2017 LARYNGOSCOPY, MICROSCOPE, WITH BIOPSY (WRVU 3.55) performed by Zafar Madera MD at [facility] MAIN OR ??? QUADRACEPS TENDON REPAIR Right 04/2016 [facility] ??? TONSILLECTOMY Social History Substance Use Topics ??? Smoking status: Former Smoker Packs/day: 1.00 Years: 27.00 Types: Cigarettes, Pipe Start date: 1969 Quit date: 1995 ??? Smokeless tobacco: Never Used Comment: quit cigarettes in 1995 - but smoked occasional pipe ??? Alcohol use Yes Comment: 1-2 drinks a week - liquor History Drug Use No Comment: hasn't smoked marijuana in 25 years - everyday Allergies Allergen Reactions ??? Ibuprofen CIS - Nausea/Vomiting ??? Clindamycin Other (See Comments) Memory issues. Medications: MAR and/or home medications have been reviewed. Physical Exam: Vitals: 07/15/17 1113 BP: Pulse: Resp: 12 Temp: Body mass index is 36.26 kg/(m^2). Height: (!) 191.8 cm (6' 3.5) Weight - Scale: (S) (unable to weigh-bed not zeroed ) Airway Assessment: Nasal SANTIAGO ETT in situ Cardiovascular Assessment: Rhythm: irregular Rate: normal Pulmonary Assessment: breath sounds clear to auscultation Dental Assessment: - normal exam Misc Assessment: IV access: A-line and Peripheral line Other exam findings: Patient is intubated and sedated Anesthesia Plan: ASA 3 general, with a(n) intravenous induction 66 y/o man with a PMH of A-fib and PE (on apixaban as an outpatient), KORI on CPAP, GERD, hypothyroidism who is intubated in the ICU following radical resection of a tongue mass, pharyngectomy and extensive neck dissection. His intubation was challenging given that a nasal SANTIAGO was required and the bulk of his tumor. He was grade 2 with DL, ultimately intubated with a CMAC D blade. On PS 5/8 in the ICU, 40% FiO2, passed multiple SBTs but has no cuff leak and ICU team concerned regarding extubation in ICU. Plan to bring to the OR for attempted extubation with ENT present. Will have video, FOI and exchange catheters available, consented for trach with ENT if needed. Brock Tang MD Region - Other Informed Consent: Anesthetic plan and risks discussed with spouse. Plan discussed with resident, FISHER HAND LINE and attending. PAT Staff Note documented in this encounter Plan of Treatment Upcoming Encounters Date Type Department Care Team (Late st Contact Info) Description 08/01/2024 1:00 PM EDT Office Visit Hematology/Oncology at [address] [phone] Dmitry Bhatti MD [facility] DR HEMATOLOGY/[place] [address] Ellen Mcrae APRN [facility] [place] [address] 08/01/2024 1:30 PM EDT Infusion Hematology Oncology at [address] [phone] documented as of this encounter Visit Diagnoses Not on filedocumented in this encounter Administered Medications Inactive Administered Medications - up to 3 most recent administrations Medication Order MAR Action Action Date Dose Rate Site lactated Ringers infusion CONTINUOUS PRN, Starting on Wed07/16/17 at 1201, Until Wed07/16/17 at 1247, Anesthesia Intra-op New Bag 07/16/2017 12:01 PM EDT propofol (DIPRIVAN) 10 mg/mL bolus injection (Anesthesia) PRN, Starting on Wed07/16/17 at 1159, Until Wed07/16/17 at 1247, Anesthesia Intra-op Given 07/16/2017 12:12 PM EDT 50 mg Given 07/16/2017 12:06 PM EDT 50 mg Given 07/16/2017 12:01 PM EDT 50 mg remifentanil (ULTIVA) injection PRN, Starting on Wed07/16/17 at 1219, Until Wed07/16/17 at 1247, Anesthesia Intra-op, Routine Given 07/16/2017 12:20 PM EDT 50 mcg Given 07/16/2017 12:19 PM EDT 50 mcg Given 07/16/2017 12:16 PM EDT 50 mcg documented in this encounter Care Teams Airline Manager Relationship Specialty Start Date End Date Jovon Sifuentes MD [address] [place] [address] PCP - General 09/30/10 09/10/21 documented as of this encounter
--- OUTSIDE RECORDS SUMMARY | 2024-05-18 11:34 | XMS_ITS | Encounter Summary ---
Author Organization [facility] [place] [address] Care Team Providers Care Dtp Operator Name Role Phone Jovon Sifuentes MD Primary Care Provider [phone] Encounter Details Date Type Department Care Team (Late st Contact Info) Description 06/03/2017 [place] [phone] Jeannie Arteaga MSW CARE MANAGEMENT Social History Tobacco Use Types Packs/Day Years Used Date Smoking Tobacco: Former Cigarettes 9 - 1995 Pipe Comments:quit cigarettes in 1995 - but smoked occasional pipe Alcohol Use Standard Drinks/Week Comments Yes 0 (1 standard drink = 0.6 oz pur e alcohol) 1-2 drinks a week - liquor Sex and Gender Information Value Date Recorded Sex Assigned at Not on file Gender Identity Not on file Sexual Orientation Not on file documented as of this encounter Progress Notes * Jeannie Arteaga MSW - 06/03/2017 3:12 PM EDT Continuing Compensation Vice President - Social Work Note: BINGO USHER met with pt to introduce self/role, assess psychosocial needs, and provide resource referrals/support as needed. Pt denies any concerns about insurance, finances, transportation, or community resources at this time. Pt explained that current priority is sorting out medical plan of care. BINGO USHER informed pt as to [facility]- role and availability for any needs/questions that arise as the plan of care continues to evolve. Pt met with radiation oncology, medical oncology, and ENT surgeon today; they received a lot of information. Plan of care still undecided (between radiation vs. Surgery). If pt pursues radiation, it would be in [facility], closer to home. No further SW intervention planned at this time, however, I am available for ongoing support and resource referral, as needed Pager [phone] documented in this encounter Plan of Treatment Upcoming Encounters Date Type Department Care Team (Late st Contact Info) Description 08/01/2024 1:00 PM EDT Office Visit Hematology/Oncology at [address] [phone] Dmitry Bhatti MD [facility] DR HEMATOLOGY/[place] [address] Ellen Mcrae APRN [facility] [place] [place] [address] 08/01/2024 1:30 PM EDT Infusion Hematology Oncology at [address] [phone] documented as of this encounter Visit Diagnoses Not on filedocumented in this encounter Care Teams Dtp Operator Relationship Specialty Start Date End Date Jovon Sifuentes MD [address] [place] [address] PCP - General 09/30/10 09/10/21 documented as of this encounter
--- OUTSIDE RECORDS SUMMARY | 2024-05-18 11:34 | XMS_ITS | Encounter Summary ---
[place] [address] Care Team Providers Care Health Commissioner Name Role Phone Jovon Sifuentes MD Primary Care Provider [phone] Reason for Visit * Auth/Cert Specialty Diagnoses / Procedures Referred By Contbela t Referred To Contact Diagnoses base of tongue cancer Procedures PRO LARYNGOSCOPY, DIRECT, DX, OP MICROSCOP PRO BIOPSY OROPHARYNX LARYNGOSCOPY, WITH MICROSCOPE (WRVU 2.57) BIOPSY, OROPHARYNX (WRVU 1.44) Referral ID Status Reason Start Date Expiration Date Visits Re quested Visits Authorized [id number] 1 1 Encounter Details Date Type Department Care Team (Late st Contact Info) Description 05/24/2017 9:28 AM EDT Anesthesia [place] [phone] Brock Tang MD [facility] [place] [address] Joselito Hill MD [facility] DR [place] [address] Anesthesia Record Procedure Summary Procedure Name Responsible Anesthesiologist Anesthesia Start Time Anesthesia Stop Time LARYNGOSCOPY, MICROSCOPE, WITH BIOPSY (WRVU 3.55) (Throat) Brock Tang MD 05/24/17 0928 05/24/17 1034 Events Date Time Event Comment 05/24/2017 0838 0928 AN Verify 0928 Start 0928 An Start Data 0931 An Induction 0943 An Intubation 0949 Anesthesia Ready 1020 Procedure Stop 1029 Extubation/LMA Out 1029 an stop data 1034 Recovery or ICU Handoff Krystal ent care was transferred to the destination unit staff after review of the patient's medical history, current anesthetic/surgical status and plan, according to the Provider Handoff Checklist. 1034 Stop Meds Name Total Midazolam 2 mg fentaNYL 100 mcg Propofol 250 mg Rocuronium 60 mg Ondansetron 4 mg Dexamethasone 4 mg Neostigmine 3 mg Glycopyrrolate 0.4 mg ceFAZolin 3 g Esmolol 20 mg meTOPROLOL 2 mg * Agents Name O2 Air N2O Sevoflurane (et) * Blood No blood administrations on file. Lines, Drains, and Airways Type Details Placement Removal (RETIRED) Peripheral IV Line - Single Lumen 05/24/17; 0836; metacarpal vein (top of hand), right; [id number] catheter system; 20 gauge, 1 in length; distraction, intradermal injection, tolerated well, appears comfortable; 07/29/17; 1331 05/24/17 0836 by Leslye Escobar RN 07/29/17 1331 by Radha Colon RN ETT Mask Ventilation: Adjunct (2); ETT Type: Cuffed, Oral; ETT Size: 7 mm; Exchange: Bougie; Notes: Asleep, Pre-O2; Attempts: 1; Laryngoscopy Grade: 2; ETT Placement Verified By: Visual, Capnometry; Inserted by: ENT; Removal Date: 05/24/17; Removal Time: 1029 05/24/17 0943 by Joselito Hill MD 05/24/17 1029 by Joselito Hill MD Incision 05/24/17; 1003; (tongue); 07/06/22 (LDA cleanup utility RA#[id number]); 1715 (LDA cleanup utility RA#[id number]) 05/24/17 1003 by Ellen Curry RN 07/06/22 1715 by Severino Caputo documented in this encounter Social History Tobacco Use Types Packs/Day Years Used Date Smoking Tobacco: Former Cigarettes Q uit: 1995 Alcohol Use Standard Drinks/Week Comments Yes 0 (1 standard drink = 0.6 oz pur e alcohol) 1-2 drinks a week Sex and Gender Information Value Date Recorded Sex Assigned at Not on file Gender Identity Not on file Sexual Orientation Not on file documented as of this encounter OR Notes * Anesthesia Postprocedure Evaluation - Brock Tang MD - 05/24/2017 10:51 AM EDT [facility] Department of Anesthesiology Post-procedure Note Patient: Jose Bee Procedure Summary Date Anesthesia Start Anesthesia Stop Room / Location 05/24/17927 [facility] Procedure Diagnosis Surgeon Responsible Provider LARYNGOSCOPY, MICROSCOPE, WITH BIOPSY (WRVU 3.55) (N/A Throat); BIOPSY, OROPHARYNX (WRVU 1.44) (N/AMouth) (base of tongue cancer) Zafar Madera MD Pouliot, Ryan C, MD All Anesthesia Providers: Anesthesiologist: Brock Tang MD Enforcement Safety Officer: Joselito Hill MD Last (1hr) Vitals: BP (!) 128/92 (05/24/17 1032) Temp 35.9 ??C (96.6 ??F) (05/24/17 1032) Pulse 80 (05/24/17 1032) Resp 16 (05/24/17 1032) SpO2 96 % (05/24/17 1032) Patient Location: PACU/[facility] Level of Consciousness: Awake and Alert Pain Management: Satisfactory Analgesia PONV: None Cardiovascular Status: Hemodynamically Stable and At Baseline Respiratory Status: Supplemental O2 (NC or FM) and Stable Respiratory Status Postoperative Fluid Status: Intravascular EUvolemia Possible Anesthetic Complications: NONE apparent at time of evaluation Final Primary Anesthesia Type: General (The anesthetic type performed was the same as planned.) Comments: * Anesthesia Preprocedure Evaluation - Brock Tang MD - 05/23/2017 9:47 PM EDT Pre-Anesthesia Evaluation for: Jose Bee a 66 y.o. male. Procedure(s): LARYNGOSCOPY, WITH MICROSCOPE (WRVU 2.57) BIOPSY, OROPHARYNX (WRVU 1.44) Patient Active Problem List Diagnosis ??? KORI on CPAP ??? Adult BMI 30+ ??? Atrial fibrillation March 2017: noted in ED in [facility]. Previously noted to be paroxysmal. No awareness. CHADS2-VASc=1 (age). Started on apixaban for PE ??? Acute pulmonary embolism March 2017: noted on CT in [facility]. RLL. Treated with apixaban ??? Benign prostatic hyperplasia ??? Lesion of tongue 2008: globus evaluation 2016: mass at base of right tongue noted in . . Scheduled for bx. Delayed by development of PE Past Medical History: Diagnosis Date ??? Arthritis ??? BPH (benign prostatic hyperplasia) ??? Cataract, right eye ??? ED (erectile dysfunction) ??? Hypothyroidism ??? Pulmonary embolism No past surgical history on file. Social History Substance Use Topics ??? Smoking status: Former Smoker Quit date: 1995 ??? Smokeless tobacco: Not on file ??? Alcohol use Not on file History Drug Use Not on file Allergies Allergen Reactions ??? Ibuprofen CIS - Nausea/Vomiting ??? Clindamycin Other (See Comments) Memory issues. Medications: MAR and/or home medications have been reviewed. Physical Exam: There were no vitals filed for this visit. There is no height or weight on file to calculate BMI. Airway Assessment: Mallampati: II TM distance: >3 FB Neck ROM: limited Cardiovascular Assessment: Pulmonary Assessment: Dental Assessment: - normal exam Misc Assessment: IV access: Peripheral line Anesthesia Plan: ASA 3 general, with a(n) intravenous induction 66 y.o. Male with base of tongue mass here for laryngoscopy and biopsy. PMH significant for atrial fibrillation (CHADS2-VASc=1), recent dx of acute PE (March 2017, on apixiban), obesity, KORI on CPAP, BPH. Meds and allergies reviewed. Labs from 03/2017 reviewed. No anesthetic hx noted on chart review. Plan for GA. Standard ASA monitors. Adequate IV access. Anesthesia Staff Addendum: Patient seen and evaluated in preop holding. Agree with assessment and plan as above. Denied problems with anesthesia. Appropriate NPO status. Does note allergies this weekend with puffy and itchy eyes, left more so than right. This happens occasionally and is usuallyimproved with Claritin, but he did take any this am as he was unsure if it would interfere with surgery/anesthesia. Plan for GA, ETT. Region - Other Informed Consent: Anesthetic plan and risks discussed with patient. Plan discussed with resident and attending. PAT Staff Note documented in this encounter Miscellaneous Notes * Addendum Note - Joselito Hill - 05/25/2017 12:03 PM EDT Addendum created 05/25/17 1203 by Joselito Hill MD Anesthesia Intra Meds edited documented in this encounter Plan of Treatment Upcoming Encounters Date Type Department Care Team (Late st Contact Info) Description 08/01/2024 1:00 PM EDT Office Visit Hematology/Oncology at [address] [phone] Dmitry Bhatti MD [facility] DR HEMATOLOGY/[place] [address] Ellen Mcrae APRN [facility] [place] [address] 08/01/2024 1:30 PM EDT Infusion Hematology Oncology at [address] [phone] documented as of this encounter Visit Diagnoses Not on filedocumented in this encounter Administered Medications Inactive Administered Medications - up to 3 most recent administrations Medication Order MAR Action Action Date Dose Rate Site ceFAZolin (ANCEF) 1g in dextrose 5% 50mL PRN, Starting on Wed05/24/17 at 0950, Until Wed05/24/17 at 1051, Administer over 30 Minutes, Anesthesia Intra-op Given 05/24/2017 9:50 AM EDT 3 g dexamethasone (DECADRON) injection PRN, Starting on Wed05/24/17 at 1007, Until Wed05/24/17 at 1051, Anesthesia Intra-op, Routine Given 05/24/2017 10:07 AM EDT 4 mg esmolol (BREVIBLOC) injection PRN, Starting on Wed05/24/17 at 0954, Until Wed05/24/17 at 1051, Anesthesia Intra-op, Routine Given 05/24/2017 9:54 AM EDT 20 mg fentaNYL 50 mcg/mL multi-dose injection PRN, Starting on Wed05/24/17 at 0931, Until Wed05/24/17 at 1051, Pain, Anesthesia Intra-op, Routine Given 05/24/2017 10:02 AM EDT 25 mcg Given 05/24/2017 9:47 AM EDT 25 mcg Given 05/24/2017 9:31 AM EDT 50 mcg glycopyrrolate (ROBINUL) multi-dose injection PRN, Starting on Wed05/24/17 at 1016, Until Wed05/24/17 at 1051, Anesthesia Intra-op, Routine Given 05/24/2017 10:16 AM EDT 0.4 mg meTOPROLOL (LOPRESSOR) injection PRN, Starting on Wed05/24/17 at 0955, Until Wed05/24/17 at 1051, High Blood Pressure, Anesthesia Intra-op, Routine Given 05/24/2017 9:59 AM EDT 1 mg Given 05/24/2017 9:55 AM EDT 1 mg midazolam (PF) (VERSED) 1 mg/mL multi-dose injection PRN, Starting on Wed05/24/17 at 0927, Until Wed05/25/17 at 1203, Sleep, Anesthesia Intra-op, Routine Given 05/24/2017 9:27 AM EDT 2 mg neostigmine (BLOXIVERZ) injection PRN, Starting on Wed05/24/17 at 1015, Until Wed05/24/17 at 1051, Anesthesia Intra-op, Routine Given 05/24/2017 10:15 AM EDT 3 mg ondansetron (ZOFRAN) injection PRN, Starting on Wed05/24/17 at 1006, Until Wed05/24/17 at 1051, Nausea, Anesthesia Intra-op, Routine Given 05/24/2017 10:06 AM EDT 4 mg propofol (DIPRIVAN) 10 mg/mL bolus injection (Anesthesia) PRN, Starting on Wed05/24/17 at 0938, Until 7/17/17 at 1051, Anesthesia Intra-op Given 05/24/2017 9:38 AM EDT 50 mg Given 05/24/2017 9:31 AM EDT 200 mg rocuronium (ZEMURON) multi-dose injection PRN, Starting on Wed05/24/17 at 0935, Until Wed05/24/17 at 1051, Anesthesia Intra-op, Routine Given 05/24/2017 9:35 AM EDT 60 mg documented in this encounter Care Teams Health Commissioner Relationship Specialty Start Date End Date Jovon Sifuentes MD [address] [place] [address] PCP - General 09/30/10 09/10/21 documented as of this encounter
--- OUTSIDE RECORDS SUMMARY | 2024-05-18 11:34 | XMS_ITS | Encounter Summary ---
Author Organization [facility] Address [facility] [place] [address] Care Team Providers Care Operations Expert Name Role Phone Jovon Sifuentes MD Primary Care Provider [phone] Reason for Visit * Reason Comments Atrial Fibrillation * Consultation (Routine) - Closed Specialty Diagnoses / Procedures Referred By Contbela t Referred To Contact Cardiology Diagnoses A-fib,enlarged heart, pulmonary embolism Stressenger, GILLIAN Farmer [address] [place] [address] [facility] Cardiology [address] [place] [phone] Referral ID Status Reason Start Date Expiration Date V isits Requested Visits Authorized [id number] Closed Connection Center 04/07/2017 04/07/2018 1 1 Encounter Details Date Type Department Care Team (Late st Contact Info) Description 04/30/2017 10:40 AM EDT Office Visit Cardiology at [address] [phone] Kashmir Lr MD [facility] [place] [address] Other acute pulmonary embolism without acute cor pulmonale; Persistent atrial fibrillation; Lesion of tongue Social History Tobacco Use Types Packs/Day Years Used Date Smoking Tobacco: Former Cigarettes Q uit: 1995 Sex and Gender Information Value Date Recorded Sex Assigned at Not on file Gender Identity Not on file Sexual Orientation Not on file documented as of this encounter Last Filed Vital Signs Vital Sign Reading Time Taken Comments Blood Pressure 100/56 04/30/2017 10:35 AM EDT Pulse 70 04/30/2017 10:35 AM EDT Temperature - - Respiratory Rate - - Oxygen Saturation 96% 04/30/2017 10:35 AM EDT Inhaled Oxygen Concentration - - Weight 137 kg (302 lb) 04/30/2017 10:35 AM EDT Height 193 cm (6' 4) 04/30/2017 10:35 AM EDT Body Mass Index 36.76 04/30/2017 10:35 AM EDT documented in this encounter Progress Notes * Kashmir Lr MD - 04/30/2017 10:40 AM EDT Images from the original note were not included. CARDIOVASCULAR MEDICINE [place] [address] Subjective Identification Jose Bee is a 66 y.o. patient of Jovon Sifuentes MD with the following cardiovascular issues: 1. Atrial fibrillation--- dx in 2014, aspirin changed to apixaban at time of PE 2. Pulmonary embolism--- March 2017. RLL. [facility]. 3. Cardiomegaly noted on CT in [facility]--- normal echo here April 2017 Comorbidities include KORI on CPAP, ED, elevated BMI, BPH, skin cancer on left scalp in late , and mass at base of right side of tongue. Lives with in [place], [place]. Interested in Civil War living history. 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 Friends with Dayron Cardoza, orthopedic surgeon in [place], [place]. Present Illness Seen today at the request of Dr. Sifuentes and Marleny Brewer [facility]. Several years ago noticed sensation in throat (records show evaluation for globus sensation in 2007 with negative MRI). This got worse 2 months ago and evaluation showed a mass at the base of right tongue. Before it could be biopsied by Dr. Madera he presented on March 26 for acute right sided chest and abdominal pain. CT scan was initially thought to show pneumonia but review suggested RLL pulmonary embolism and he was referred to the ED. In the ED he was noted to be in AF (previously was paroxysmal). The CT was also read asdemonstrating cardiomegaly. He was started on anticoagulation. Has seen hematology regarding the PEand has follow up in August to decide on duration. He is scheduled for biopsy of throat on May 24. He is here for opinion regarding AF and his cardiomegaly. He feels like he is a bit out of shape but otherwise ok. No awareness of AF at all. Has been cutting and handling wood and feeling ok. Tolerating apixaban though expensive. Medications Current Outpatient Prescriptions: ??? CIALIS 10 mg Tablet, , Disp: , Rfl: 0 ??? glucosamine sulfate 500 mg Tablet, Take by mouth., Disp: , Rfl: ??? melatonin 5 mg Tablet, Take by mouth., Disp: , Rfl: ??? tamsulosin (FLOMAX) 0.4 mg Capsule, Sust. Release 24 hr, Take 0.4 mg by mouth daily., Disp: , Rfl: ??? apixaban (ELIQUIS) 5 mg Tablet, Take 5 mg by mouth 2 times daily., Disp: , Rfl: No current facility-administered medications for this visit. Facility-Administered Medications Ordered in Other Visits: ??? perflutren protein-A microspheres (OPTISON) 0.22 mg/mL injection 0.3 mL, 0.3 mL, Intravenous, Once PRN, Kashmir Lr MD Objective Physical Exam VS: BP 100/56 (BP Location (NBP): Left arm, Patient Position: Sitting, BP Cuff Sizes: Large Adult (32-43 cm)) Pulse 70 Ht (!) 193 cm (6' 4) Wt (!) 137 kg (302 lb) SpO2 96% BMI 36.76 kg/m2,Body mass index is 36.76 kg/(m^2). Gen: Pleasant. No distress. Skin: Warm and dry HEENT: Anicteric sclera Lungs: No accessory muscle use. No wheezing or crackles. Heart: Normal JVP. No carotid bruit. No RV lift. irregularly regular rhythm. Nl S1 and S2. No murmur. No edema. Abdomen: Nondistended. Soft. Nontender Neuro: Normal mentation. Psych: Appropriate affect. Labs ECG from April 02 reviewed and confirms AF with VR of 64. March 2017- TC 157, TG 150, HDL 37, LDL 101, Cr.1.2, K 4.1, Mg 1.9, CBC nl Echo today shows normal RV and LV size with normal function and no valve disease Assessment and Plan Atrial fibrillation Persistent and asymptomatic Given lack of symptoms, I recommend rate control as currently done CHADS2-VASc=1, would continue AC indefinitely Agree that KORI likely a contributing factor Cardiomegaly on CT scan Not currently enlarged May have had some element of acute cor pulmonale with PE Problem resolved Pulmonary embolism Well compensated Given unprovoked nature and AF, favor bleach supervisor anticoagulation Encouraged gradual resumption of physical activity Preop evaluation Agree with plan for interrupting DOAC as outlined in note of Dr. Deleon of hematology No need for stress testing prior to surgery Low BP Asymptomatic. Normal cardiac function. No evidence of sepsis This appears to be constitutional Avoid BP lowering meds Follow up prn Kashmir Lr MD [facility] cc: ?? Jovon Sifuentes MD [address] / [place] [address] documented in this encounter Plan of Treatment Upcoming Encounters Date Type Department Care Team (Late st Contact Info) Description 08/01/2024 1:00 PM EDT Office Visit Hematology/Oncology at [address] [phone] Dmitry Bhatti MD [facility] DR HEMATOLOGY/[place] [address] Ellen Mcrae APRN [facility] [place] [address] 08/01/2024 1:30 PM EDT Infusion Hematology Oncology at [address] [phone] documented as of this encounter Visit Diagnoses Diagnosis Other acute pulmonary embolism without acute cor pulmonale Persistent atrial fibrillation Atrial fibrillation Lesion of tongue Other specified conditions of the tongue documented in this encounter Care Teams Operations Expert Relationship Specialty Start Date End Date Jovon Sifuentes MD [address] [place] [address] PCP - General 09/30/10 09/10/21 documented as of this encounter
--- OUTSIDE RECORDS SUMMARY | 2024-05-18 11:34 | XMS_ITS | Encounter Summary ---
Author Organization Formerly [facility] [place] [address] Care Team Providers Care Energy And Sustainability Manager Name Role Phone Jovon Sifuentes MD Primary Care Provider Reason for Referral * Diagnostic Test (Routine) - Closed Specialty Diagnoses / Procedures Referred By Huma valladares Referred To Contact Radiology Diagnoses Other acute pulmonary embolism without acute cor pulmonale Carcinoma of base of tongue Procedures PET CT Standard Skull Base to Mid-Thigh Kaiden Dos Santos MD [facility] [address] [place] [address] Referral ID Status Reason Start Date Expiration Date V isits Requested Visits Authorized [id number] Closed Specialty Service Requested 06/10/2017 08/08/2017 2 2 Reason for Visit * Reason Comments Schedule Office Case * Consultation (Routine) - Specialty Diagnoses / Procedures Referred By Huma valladares Referred To Contact Hematology and Oncology Diagnoses Cancer of base of tongue Zafar Madera MD [facility] [place] [address] [facility] [address] [place] [address] Referral ID Status Reason Start Date Expiration Date V isits Requested Visits Authorized [id number] Consult, Test & Treat 04/27/2017 04/27/2018 1 1 Encounter Details Date Type Department Care Team (Late st Contact Info) Description 06/03/2017 10:00 AM EDT Office Visit Hematology [place] [address] Kaiden Dos Santos MD [address] [place] [phone] Other acute pulmonary embolism without acute cor pulmonale; Carcinoma of base of tongue Social History Tobacco Use Types Packs/Day Years Used Date Smoking Tobacco: Former Cigarettes 1995 Pipe Comments:quit cigarettes in 1995 - [...] Sign Reading Time Taken Comments Blood Pressure 112/63 06/03/2017 10:01 AM EDT Pulse 77 06/03/2017 10:01 AM EDT Temperature 36.3 ??C (97.3 ??F) 06/03/2017 1 0:01 AM EDT Respiratory Rate 20 06/03/2017 10:0 1 AM EDT Oxygen Saturation 98% 06/03/2017 10: 01 AM EDT Inhaled Oxygen Concentration - - Weight 138.7 kg (305 lb 12.8 oz) 2016 10:01 AM EDT Height 187.5 cm (6' 1.82) 06/03/2017 1 0:01 AM EDT Body Mass Index 39.46 06/03/2017 10:01 AM EDT documented in this encounter Progress Notes * Kaiden Dos Santos MD - 06/03/2017 10:00 AM EDT Head and Neck Medical Oncology New Patient Consultation Patient Active Problem List Diagnosis ??? KORI [...] keratinizing D. Treatment planning in progress 05/2017 CC: referred by Dr. Madera for consideration of chemotherapy as part of definitive therapy for newly Dx'd R BOT cancer History: The patient is a functionally well 66-year-old whose had neck history dates to 2007, when he was evaluated here for globus sensation like a hair ball in my throat. Dr. Patel's note from that evaluation notes that his symptoms were mostly on the left. Fiberoptic laryngoscopy and an MRI did not reveal any pathology. This symptom continued at a low level until escalating over the past few months.He presented to the [facility] with these throat symptoms as well as a more global problem of malaise, low-grade fevers, and cough; he was seen by Dr. Conrad in [facility] in March, where fullness in the right tongue base was noted. He was started on antibiotics, but simultaneously was found by CT scan to have right lower lobe pulmonary embolus and possible pneumonia, as well as atrial fibrillation. He was placed on anticoagulation; Dr. Conard had planned on performing an exam under anesthesia with these plans suddenly became more, complicated because of anticoagulation. He was referred to Dr. Madera , and to my colleague Dr. Deleon for conditions about a nticoagulation management around EUA. As I review his history, I'm impressed more with the pneumonia symptoms (malaise, low-grade fever, productive cough) and less with PE symptoms (does not really recall shortness of breath or pleuritic chest pain although some of the notes remark on the latter). In any event he has tolerated oral anticoagulant well with no bleeding complications. He was able to undergo EUA successfully, documenting a tumor in the right base of tongue, extendingto the lower pole of the right tonsil, and slightly to the right lateral pharynx. Since the EUA he's felt a bit more fullness in the back of the throat, but has not had any significant dysphagia, aspiration symptoms, weight loss, or referred otalgia. Relevant issues (factoring out symptoms related to diagnostic procedures): Functional problems: None Coping/emotional issues: Anxious to get going with therapy Dental issues: No active problems. Sees his dentist periodically Neuropathy: None Hearing problems: Moderately decreased; his notes having to turn up the TV quite loud Medical comorbidities atrial fibrillation, study, on anticoagulation. He was evaluated by Dr. Lr here, with no concerns about myocardial function Geographic issues: Lives in [facility]; the [facility] would be much more convenient for treatment Advanced Directive: Not reviewed today Past Medical History: Diagnosis Date ??? Arthritis ??? Atrial fibrillation ??? BPH (benign prostatic hyperplasia) ??? Cataract, right eye ??? ED (erectile dysfunction) ??? Hypothyroidism ??? Pulmonary embolism Social History Social History ??? Marital status: Spouse name: Briana ??? Number of children: 4 ??? 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 Smoking status: Former Smoker Packs/day: 1.00 Years: 27.00 Types: Cigarettes, Pipe Start date: 1968 Quit date: 1995 ??? Smokeless tobacco: Not on file Comment: quit cigarettes in 1995 - but smoked occasional pipe ??? Alcohol use Yes Comment: 1-2 drinks a week - liquor ??? Drug use: No Comment: hasn't smoked marijuana in 25 years - everyday ??? Sexual activity: Yes Other Topics Concern ??? 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 He is to Briana for 40 yrs. 4 children - All live in different states - One Kathleen Enjoys raising Beef Cattle and doing Civil War and Living History and shoot Black powder/Antique firearms. He enjoys builiding Firearms/Blacksmithing - [place]coal, [place], etc. No family history on file. Outpatient Prescriptions Marked as Taking for the 06/03/17 encounter (Office Visit) with Kaiden Dos Santos MD Medication Sig Dispense Refill ??? glucosamine sulfate 500 mg Tablet Take by mouth. ??? melatonin 5 mg Tablet Take by mouth. ??? tamsulosin (FLOMAX) 0.4 mg Capsule, Sust. Release 24 hr Take 0.4 mg by mouth daily. ??? apixaban (ELIQUIS) 5 mg Tablet Take 5 mg by mouth 2 times daily. Review of Systems: in addition to issues discussed in HPI: (negative unless highlighted in bold) Constitutional: weight loss, fatigue, fevers, chills, sweats Endocrine: symptoms of hyperglycemia, hypoglycemia, thyroid deficiency or excess Pulmonary: cough, dyspnea, orthopnea, hemoptysis Cardiac: palpitations, angina, lightheadedness, pedal edema Vascular: claudication, asymmetric leg swelling GI: diarrhea, dyspepsia, GERD, abdominal pain, melena, hematochezia Hepatic: jaundice, RUQ discomfort, bloating Muscular: myalgias, focal weakness Skeletal: new bone pains Skin: itching, rash, new skin lesions Neurologic: headache, visual disturbance, focal weakness, sensory changes, neuropathic pain, mentalstatus decline Emotional: symptoms of depression, of anxiety Vitals: 06/03/17 1001 BP: 112/63 Patient Position: Sitting Pulse: 77 Resp: 20 Temp: 36.3 ??C (97.3 ??F) TempSrc: Temporal SpO2: 98% Weight: (!) 138.7 kg (305 lb 12.8 oz) Height: 187.5 cm (6' 1.82) Body surface area is 2.69 meters squared. Physical examination: He is coming by his today. Burly build; Body mass index is 39.46 kg/(m^2). Oral: Palate moves symmetrically. Tongue unremarkable, moves normally, protrudes to midline. No visible leukoplakia, base of tongue tumor not visible. Mallampati class 4 pharynx limits his ability Neck: Stocky; no obviously palpable adenopathy. Lungs: Clear Heart: Irregularly irregular, good rate control. No murmur, no gallop Abdomen: Obese, but without hepatosplenomegaly. Extremity: No clubbing cyanosis or edema Neurologic: Motor and sensory grossly normal. Hearing function seems moderately decreased, as I have to speak up slightly during our conversation Cranial nerves: Normal Reflexes: 1+ Skin: No obvious lesions over the head and neck Radiographs: I personally reviewed prior neck and chest CTs. He has a large irregular tumor in the right base of tongue, which appears to fill the right side of the vallecula; it does not obviously invade the perifacial tissue or preepiglottic fat. There are multiple small nodes in the neck but none reaching pathologic size or imaging characteristics. CT of the chest from mid March shows some consolidation of the right base, with small segmental luminal filling defects consistent with pulmonary emboli. No obvious signs of metastatic disease. Echocardiogram 04/30/2017 was normal save for the atrial fibrillation; LVEF 60, wall thicknesses normal, valves normal. Labs: No recent blood work Pathology: From EUA: DIAGNOSIS A - Left tongue base, biopsy: Benign tonsillar tissue. B - Right soft palate, biopsy: Benign squamous mucosa. C - Right superior tonsil, biopsy: Benign tonsillar tissue. D - Left lingual surface epiglottis, biopsy: Benign squamous mucosa. E - Right lingual surface epiglottis, biopsy: - Benign squamous mucosa. - Detached fragments of squamous cell carcinoma in blood clot. F - Right tongue base, biopsy: Minimally keratinizing squamous cell carcinoma, p16 positive. G - Right tonsil, biopsy: Minimally keratinizing squamous cell carcinoma. Electronically signed by: ??Fabián INGRAM, Mey Comer Verified: ??05/26/2017 ?Pathologist DISCUSSION HPV genotyping has been ordered and??will be reported in an addendum. Immunohistochemistry Studies: Block ? Antibody ?Result (Positive/Negative) F1 ?p16 ?Strongly positive Impression and Plan: 1. Other acute pulmonary embolism without acute cor pulmonale: This appears to be improving on ongoing oral anticoagulation. There is some suspicion of course that this is related to his malignancy, and this raises my suspicion that what we see in the throat may be less than his total tumor burden.It is also possible that the PE was triggered by intercurrent pneumonia, which I favor based on my r eview of his symptoms at that time. In any case, the history of pulmonary embolus I think requires that we stage more aggressively for metastatic disease, with a PET/CT. 2. 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 This would give him a high probability of cure, although slightly less then a never-smoker. Plan: ?? We had a long discussion today (over 60 minutes of the total 75 minute visit ) about the optionsfor therapy, the findings, we reviewed the CT images, the significance of the 16 positivity, and our current anticipation of curative intent treatment. ?? I will try to ensure that we get a PET/CT in a timely fashion. ?? His case was discussed at our tumor Board, and again individually with Drs. Sanchez and Cassyat the end of the day and we feel that if we confirm the N0 stage, radiation alone (without chemotherapy) would be reasonable therapy, as would TORS resection. He will be referred to Dr. Contreras, our TORS surgeon. Anticoagulation management around surgery would once again take some careful consideration but he did well being off the apixiban for several days before and after the EUA. ?? If we discover higher stage disease that would require chemoradiation, we will have to discuss the chemotherapy drug options carefully given his hearing loss, and his atrial fibrillation. ?? I recommended that he call his dentist to get an appointment for a preradiation checkup to make sure there are no further delays in moving ahead if we choose radiation-based treatment. I am grateful for the opportunity to consult with this patient. Followup: pending results of PET/CTand final treatment strategy. Kaiden Dos Santos MD, FACP Hematology/Oncology Section [phone] Voice recognition software used for this note; please excuse hospital admissions officer errors. documented in this encounter Plan of Treatment Upcoming Encounters Date Type Department Care Team (Late st Contact Info) Description 08/01/2024 1:00 PM EDT Office Visit Hematology/Oncology at [address] [phone] Dmitry Bhatti MD [facility] HEMATOLOGY/[place] [address] Eleln Mcrae APRN [facility] [place] [address] 08/01/2024 1:30 PM EDT Infusion Hematology Oncology at [address] [phone] documented as of this encounter Results * PET CT Standard Skull Base to Mid-Thigh (06/17/2017 2:04 PM EDT) Anatomical Region Laterality Modality Nuclear Medicine Impressions 06/17/2017 3:54 PM EDT 1. ??Right base of tongue hypermetabolic mass consistent with known primary malignancy. 2. ??Several mildly FDG avid prominent bilateral cervical lymph nodes, suspicious for jacqueline metastases. 3. ??Indeterminate CT visualized 6 mm right middle lobe nodule, likely below the sensitivity of PET, attention on follow-up dedicated breath-hold chest CT in 6 months. 4. ??No additional suspected sites of distant metastatic disease. Thank you for referring this patient to [facility]. I have personally reviewed the image(s) and the residents interpretation and agree with the findings, Lizy Padgett at 06/17/2017 3:54 PM Narrative 06/17/2017 3:54 PM EDT EXAMINATION: PET CT STANDARD SKULL BASE TO MID-THIGH CLINICAL HISTORY: head/neck cancer, initial staging exam TECHNIQUE: Following IV injection of 57-qnaclm-1-deoxyglucose (FDG) a standard uptake of approximately 60 minutes, a noncontrast CT scan followed by a PET scan were acquired from the top of the head to mid thighs. The noncontrast CT [...] pole renal cyst, punctate nonobstructive calculus within the midpole the left kidney, multiple bilateral parapelvic renal cysts, and tiny periumbilical fat-containing hernia. Surgical clips also seen within the scrotum. SKELETON/EXTREMITIES: Normal marrow activity in all regions of the axial and visualized appendicular skeleton. Anterior wedging at the thoracolumbar junction resulting in kyphotic curvature as well as multilevel degenerative changes noted. Procedure Note Lizy Padgett MD - 06/17/2017 EXAMINATION: PET CT STANDARD SKULL BASE TO MID-THIGH CLINICAL HISTORY: head/neck cancer, initial staging exam TECHNIQUE: Following IV injection of 59-kxdnhl-0-deoxyglucose (FDG) astandard uptake of approximately 60 minutes, a noncontrast CT scan followed by aPET scan were acquired from the top of the head to mid thighs. The noncontrast CTwas used for anatomic localization and photon attenuation correction of thePET scan. No enteric contrast administered. Blood glucose level: 82 (mg/dL) FDG dose: 17.2 mCi COMPARISON: Outside institution CT neck 03/18/2017, CT abdomen and pelvis 03/26/2017,CTA chest 03/29/2017 FINDINGS: HEAD/NECK: FDG avid irregular soft tissue mass seen at the right base of tongue(axial image 68). Several small FDG avid prominent bilateral cervical lymphnodes, for example see axial image 67 of the head and neck series (just lateral tothe right sternocleidomastoid muscle and posterior to the left submandibulargland). Normal activity throughout the head. CHEST: Normal activity in all soft tissue regions. Tiny, sub-4 mm right upperlobe subpleural pulmonary nodules are unchanged, likely below the sensitivityof PET. CT visualized 6 mm right middle lobe nodule (axial image 88), notdefinitely visualized on the prior chest CT (03/29/2017), however, may have beenobscured by the subsegmental atelectasis. CT visualized bibasilar ground glassopacities most consistent with atelectasis and multivessel coronaryatherosclerotic calcifications. ABDOMEN/PELVIS: Normal activity in all soft tissue regions. No significant interval CT visualized findings, including again noted approximately 3 cm right upperpole renal cyst, punctate nonobstructive calculus within the midpole the leftkidney, multiple bilateral parapelvic renal cysts, and tiny periumbilicalfat-containing hernia. Surgical clips also seen within the scrotum. SKELETON/EXTREMITIES: Normal marrow activity in all regions of the axial and visualizedappendicular skeleton. Anterior wedging at the thoracolumbar junction resulting inkyphotic curvature as well as multilevel degenerative changes noted. IMPRESSION 1. Right base of tongue hypermetabolic mass consistent with knownprimary malignancy. 2. Several mildly FDG avid prominent bilateral cervical lymph nodes,suspicious for jacqueline metastases. 3. Indeterminate CT visualized 6 mm right middle lobe nodule, likelybelow the sensitivity of PET, attention on follow-up dedicated breath-hold chest CTin 6 months. 4. No additional suspected sites of distant metastatic disease. Thank you for referring this patient to [facility]. I have personally reviewed the image(s) and the residents interpretationand agree with the findings, Lizy Padgett at 06/17/2017 3:54 PM Kaiden Dos Santos MD IMG PET ORDERABLES documented in this encounter Visit Diagnoses Diagnosis Other acute pulmonary embolism without acute cor pulmonale Carcinoma of base of tongue Malignant neoplasm of base of tongue Other acute pulmonary embolism without acute cor pulmonale Carcinoma of base of tongue Malignant neoplasm of base of tongue documented in this encounter Care Teams Energy And Sustainability Manager Relationship Specialty Start Date End Date Jovon Sifuentes MD [address] [place] [address] PCP - General 09/30/10 09/10/21 documented as of this encounter
--- OUTSIDE RECORDS SUMMARY | 2024-05-18 11:34 | XMS_ITS | Encounter Summary ---
Author Organization [facility] Address [facility] [place] [address] Care Team Providers Care Chicken Fancier Name Role Phone Jovon Sifuentes MD Primary Care Provider [phone] Reason for Visit * Consultation (Routine) - Closed Specialty Diagnoses / Procedures Referred By Huma valladares Referred To Contact Radiation Oncology Diagnoses Cancer of base of tongue Zafar Madera MD [facility] [place] [address] [facility] [place] [address] Referral ID Status Reason Start Date Expiration Date V isits Requested Visits Authorized [id number] Closed Consult, Test & Treat 04/27/2017 04/27/2018 1 1 Encounter Details Date Type Department Care Team (Late st Contact Info) Description 06/03/2017 1:00 PM EDT Office [place] [phone] Clement Sanchez MD [facility] [place] [address] Carcinoma of base of tongue Social History [...] on file documented as of this encounter Patient Instructions * Patient Instructions* Lina Elder RN - 06/03/2017 1:00 PM EDT Section of Radiation Oncology Your physician: Dr. Boo Sanchez Our normal business hours are- Wednesday - Wednesday 8 AM to [address] [facility] for [facility] If you have questions about your radiation appointments please ask to speak to one of our secretarystaff. If you have questions for a nurse about radiation treatments, radiation side effects or you are notfeeling well it is best to call early in the day. This allows a nurse to return your call by 5 PM the same day. If you call after 4 PM, a nurse will return your call by 5 PM the following day, unlessit is urgent. If you experience any of the following you need to seek emergency care immediately by calling 911 1. Sudden and unexpected breathing difficulty without any exertion 2. Sudden onset of chest pain 3. Sudden onset of severe pain or uncontrolled pain 4. Sudden onset of severe weakness and/or unable to ambulate 5. Sudden new onset of a seizure 6. Fall resulting in injury A Radiation Oncology doctor is production control analyst after our normal hours and on weekends. To call for urgent medical issues from radiation treatments that can not wait until normal business hours, please call and have the billet bed operator page the Radiation Oncologist production control analyst. documented in this encounter Progress Notes * Lina Elder RN - 06/03/2017 1:00 PM EDT RADIATION ONCOLOGY NURSING INITIAL NURSING ASSESSMENT IDENTIFICATION: Jose Bee is a 66 y.o. year-old male with Right Base of Tongue Ca PRESENTING SYMPTOMS/CHIEF COMPLAINT: Dysphagia REVIEW OF SYSTEMS: Review of Systems Constitutional: Positive for activity change ( R/T to pneumonia 3 months ago) and fatigue ( past 3 months). HENT: Positive for congestion, hearing loss ( hx of christelle. hearing loss for approx. 50 yrs), tinnitus, trouble swallowing ( dysphagia not assoc. w/odynophagia) and voice change ( gravely voice change /reported constant clearing of throat ). Eyes: Negative. Respiratory: Positive for cough, choking, chest tightness and shortness of breath. Hx of Pneumonia & P.E Cardiovascular: Positive for palpitations ( hx of Afib). Gastrointestinal: Negative. Endocrine: Negative. Genitourinary: Negative. Musculoskeletal: Positive for arthralgias ( christelle, knees, shoulders, wrists, ) and neck pain ( R/T arthritis ). Skin: Negative. Allergic/Immunologic: Negative. Neurological: Positive for syncope ( fainted twice in his early adulthood life - related to heat(?)). Hematological: Negative. Psychiatric/Behavioral: Negative. IN THE PAST 12 MONTHS HAVE YOU: Fallen more than one time? No Injured yourself as result of the fall? No Experienced difficulty with walking? No (If patient does not know or declines to answer, please note in the 3 star option) If patient answered yes to any of the above, please offer to print out one of the following resources that may apply to them: Stay Independent http://www.cdc.gov/steadi/pdf/stay_independent_brochure-a.pdf What you can do to prevent falls http://www.cdc.gov/steadi/pdf/what_you_can_do_brochure-a.pdf Check for Safety-A home fall prevention checklist for older adults http://www.cdc.gov/steadi/pdf/check_for_safety_brochure-a.pdf Postural Hypotension-What is it and how to manage it http://www.cdc.gov/steadi/pdf/postural_hypotension-a.pdf Chair Rise Exercises to strengthen the muscles of things and buttocks http://www.cdc.gov/steadi/pdf/chair_rise_exercise-a.pdf Prior Radiotherapy: No Prior Chemotherapy: No Prior Hormone Therapy: No RADIOLOGY SAFETY QUESTIONS REVIEWED: If applicable MRICTSAFETYQUESTIONS LEARNING ASSESSMENT REVIEWED: see chart ADVANCED DIRECTIVE: Aware, will bring in during future visit PAIN ASSESSMENT: [0] out of 10 eD-H Adult PCS Flow Sheet if 4 or above SOCIAL ASSESSMENT: See EDH social assessment information entered. Support Systems: Briana, Spouse Barriers to treatment: Prefer Tx in [facility] Referrals/Interventions: Dr. Dos Santos & Dr. Madera RADIATION SPECIFIC TEACHING: X [facility]CI Radiation Therapy and You X Site specific teaching :Deferred until after consult X Other:Contact info PLAN: Surgery vs XRT vs CHemo? Denies removable appliances/teeth in mouth - Goes to [facility] for regular check up. Denies sores in mouth Issues swallowing solids & liquids - not assoc. W/pain Denies Trismus * Clement Sanchez MD - 06/03/2017 1:00 PM EDT Images from the original note were not included. Radiation Oncology New Patient Visit PATIENT NAME: Jose Bee DATE OF : 1950 DIAGNOSIS: HN Cancer HISTORY OF PRESENT ILLNESS Jose Bee is a 66 y.o. 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 Details: Presentation Longstanding history of sensation of fullness in his throat, initially evaluated in 2007, evaluations were unremarkable. He noticed increasing difficulty swallowing over the two months, and evaluation by Dr. Conrad revealed a mass in the right tongue base. He was concurrently evaluated for fevers, mild dyspnea and cough and was dz/ with a RLL PNA, PE and Afib. He was placed on anti-coagulation. Evaluation of his throat mas was , but he developed a PE and evaluation of his globus sensation was delayed. EUA was performed at and dx of SCC obtained. Staging & Therapy CT HN 03/18/17: diffuse wall thickening pharynx on right beginning at base of epiglottis and extending cephalad for ~ 3 cm. No pathologic adenopathy. CT A/P 03/26/17: no abdominal abnormalities CT Chest 03/29/17: Filling defects in branches of PA in RLL c/w PE. Small right pleural effusion, bilateral lung infiltrates c/w atelectasis or PNA. EUA w/ DL and bx 05/24/17: -Findings: Exophytic tumor at right tongue base extending onto tonsil and lateral pharyngeal wall laterally and extending onto lingual surface epiglottis posteriorly. Tumor approximately 2.5 cm in diameter, does not appear to cross midline. -Path: A - Left tongue base, biopsy: Benign [...] Minimally keratinizing squamous cell carcinoma, p16 positive. HPV analysis pending Other Pertinent Issues: None Currently, he has the following symptoms: Symptom Description Ongoing Intervention Oropharyngeal Pain Denies Dysphagia He has had episodes of coughing / choking, as well as food hanging up, over the past few months. Xerostomia / Dysgeusia Denies Otalgia No new issues Dental Issues Dentist visits every 6 months Nutritional Intake Eating Normal Diet PEG Not present Neck Pain Denies Neck Fibrosis / Lymphedema Denies HN sensory Changes Denies HN strength Changes Denies Voice Changes Voice raspier Social Issues 10 miles Tobacco Not currently smoking Total Pack Years Started at age 17, quit mid 40s, ~ 1 ppd Other No Issues ECOG PS: 0 Grade ECOG PERFORMANCE STATUS 0 Fully active, able to carry on all pre-disease performance without restriction 1 Restricted in physically strenuous activity but ambulatory and able to carry out work of a light or sedentary nature 2 Ambulatory and capable of all selfcare but unable to carry out any work activities; up and about > 50% of waking hours 3 Capable of only limited selfcare; confined to bed or chair more than 50% of waking hours 4 Completely disabled; cannot carry on any selfcare; totally confined to bed or chair EXAM There were no vitals filed for this visit. Physical Exam Constitutional: He is oriented to person, place, and time. He appears well- developed and well-nourished. HENT: Visual inspection of OC and OP revealed no evidence of suspicious masses or lesions. Palpation revealed no suspicious masses and no induration along the posterior tongue. Moisture good. Teeth in goodrepair Eyes: EOM are normal. Pupils are equal, round, and reactive to light. Neck: Palpation reveals no adenopathy in cervical, SCLV, ICLV jacqueline basins. Musculoskeletal: He exhibits no edema. Neurological: He is alert and oriented to person, place, and time. No cranial nerve deficit. Skin: No erythema. Psychiatric: He has a normal mood and affect. His behavior is normal. PROCEDURE HISTORY Allergies as of 06/03/2017 - Review Complete 06/03/2017 Allergen Reaction Noted ??? Ibuprofen ??? Clindamycin Other (See Comments) 04/27/2017 Past Medical History: Diagnosis Date ??? Arthritis ??? Atrial fibrillation ??? BPH (benign prostatic hyperplasia) ??? Cataract, right eye ??? ED (erectile dysfunction) ??? Hypothyroidism ??? Pulmonary embolism Past Surgical History: Procedure Laterality Date ??? ACHILLES TENDON SURGERY Right 1996 [facility] ??? KNEE ARTHROSCOPY christelle. [facility] ??? PRO BIOPSY OROPHARYNX N/A 05/24/2017 BIOPSY, OROPHARYNX (WRVU 1.44) performed by Zafar Madera MD at [facility] MAIN OR ??? PRO LARYNGOSCOPY, DIRCT, OP SCOPE, BIOPSY N/A 05/24/2017 LARYNGOSCOPY, MICROSCOPE, WITH BIOPSY (WRVU 3.55) performed by Zafar Madera MD at [facility] MAIN OR ??? QUADRACEPS TENDON REPAIR Right 04/2016 [facility] ??? TONSILLECTOMY Social History Social History ??? Marital status: Spouse name: Briana ??? Number of children: 4 ??? 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 Smoking status: Former Smoker Types: Cigarettes, Pipe Start date: 1968 Quit date: 1995 ??? Smokeless tobacco: None Comment: quit cigarettes in 1995 - but smoked occasional pipe ??? Alcohol use Yes Comment: 1-2 drinks a week - liquor ??? Drug use: No Comment: hasn't smoked marijuana in 25 years - everyday ??? Sexual activity: Yes Other Topics Concern ??? 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 He is to Briana for 40 yrs. 4 children - All live in different states - One Kathleen Enjoys raising Beef Cattle and doing Civil War and Living History and shoot Black powder/Antique firearms. He enjoys builiding Firearms/Blacksmithing - Charcoal, [place], etc. No family history on file. ROS: I reviewed and agree with the nursing review of systems accompanying this encounter. The remainder of the comprehensive review of systems was negative with the exception of the pertinent positives and negatives noted above. MEDICATIONS Current Outpatient Prescriptions on File Prior to Visit Medication Sig Dispense Refill ??? CIALIS 10 mg Tablet 0 ??? glucosamine sulfate 500 mg Tablet Take by mouth. ??? melatonin 5 mg Tablet Take by mouth. ??? tamsulosin (FLOMAX) 0.4 mg Capsule, Sust. Release 24 hr Take 0.4 mg by mouth daily. ??? apixaban (ELIQUIS) 5 mg Tablet Take 5 mg by mouth 2 times daily. No current facility-administered medications on file prior to visit. IMAGING I have personally reviewed the imaging reports and images referenced in the oncologic hx and agree with the assessment as stated. Further pertinent imaging data below LABORATORY VALUES Deferred - if he elects radiotherapy we will proceed CONTRAINDICATIONS TO RADIOTHERAPY NO YES: Date, site, dose (women only) X Prior Radiotherapy X Collagen-Vascular dz X ASSESSMENT /PLAN HN CANCER Staging CT HN PET-CT -pending, ordered EUA w/ DL ; Pathologic evaluation of the primary Further Staging None Required Therapy Discussion Jose Bee has been referred to discuss definitive radiotherapy. The patient has been evaluated by otolaryngology and is felt to be a good surgical candidate. We discussed the relative risksand benefits of radiotherapy vers surgical therapy. His current anti-coagulation may influence thisdecision, as well as his eligibility for TORS. he has been discussed at [facility] tumor board and it wasrecommended that either option is appropriate.These recommendations are in line with NCCN recommendations. We discussed the rationale, logistics (including simulation, planning, and treatment) and efficacy of definitive radiotherapy. We discussed the risks of therapy, including but not limited to short term sequelae (fatigue, skin erythema, mucositis, dysphagia, ageusia, xerostomia, weight loss) and superintendent marine oil terminal sequelae (tissue fibrosis, lymphedema, snf dysphagia potentially requiring a permanent feeding tube, xerostomia, osteoradionecrosis, increased risk of dental caries, esophageal stricture,and the possibility of significant damage to soft tissue, bone or skin requiring surgical or medical intervention). Mr. Bee expressed an understanding of these risks. The patient had a number of questions regarding optimal therapy and potential side effects. These questions were answered to his satisfaction Concurrent chemotherapy recommendations: to discuss with medical oncology Therapy Decision Proceed as indicated by the patient after PTE-CT Supportive Care Prophylactic feeding tube: not indicated Referral to Material Coordinator / FOOD AND BEVERAGE ASSISTANT MANAGER Dental Issues: to be cleared, instructions given OTHER ISSUES Pulmonary Embolus: continue anticoagulation documented in this encounter Plan of Treatment Upcoming Encounters Date Type Department Care Team (Late st Contact Info) Description 08/01/2024 1:00 PM EDT Office Visit Hematology/Oncology at [address] [phone] Dmitry Bhatti MD [facility] [address] HEMATOLOGY/[place] [address] Ellen Mcrae APRN [facility] [place] [address] 08/01/2024 1:30 PM EDT Infusion Hematology Oncology at [address] [phone] Scheduled Referrals Name Type Priority Associated Diagnoses Orde r Schedule Referral to Radiation Oncology Outpatient Referral Routine Cancer of base of tongue Ordered: 04/27/2017 documented as of this encounter Visit Diagnoses Diagnosis Carcinoma of base of tongue Malignant neoplasm of base of tongue documented in this encounter Care Teams Chicken Fancier Relationship Specialty Start Date End Date Jovon Sifuentes MD [address] [place] [address] PCP - General 09/30/10 09/10/21 documented as of this encounter
--- OUTSIDE RECORDS SUMMARY | 2024-05-18 11:34 | XMS_ITS | Encounter Summary ---
[place] [address] Care Team Providers Care Health Professor Name Role Phone Jovon Sifuentes MD Primary Care Provider [phone] Reason for Visit * Auth/Cert Specialty Diagnoses / Procedures Referred By Huma t Referred To Contact Diagnoses base of tongue cancer Procedures PRO LARYNGOSCOPY, DIRECT, DX, OP MICROSCOP PRO BIOPSY OROPHARYNX LARYNGOSCOPY, WITH MICROSCOPE (WRVU 2.57) BIOPSY, OROPHARYNX (WRVU 1.44) Referral ID Status Reason Start Date Expiration Date Visits Re quested Visits Authorized [id number] 1 1 Encounter Details Date Type Department Care Team (Latest Contact Info) Description 05/24/2017 7:17 AM EDT - 05/24/2017 12:45 PM EDT Hospital Encounter [place] [address] Keiko Madera MD [facility] [place] [address] Discharge Disposition: Home Social History Tobacco Use [...] Sign Reading Time Taken Comments Blood Pressure 106/73 05/24/2017 12:30 PM EDT Pulse 80 05/24/2017 10:32 AM EDT Temperature 35.9 ??C (96.6 ??F) 05/24/2017 10:32 AM E DT Respiratory Rate 16 05/24/2017 12:30 PM EDT Oxygen Saturation 94% 05/24/2017 12:30 PM EDT Inhaled Oxygen Concentration - - Weight 133.4 kg (294 lb) 05/24/2017 8:08 AM EDT Height 193 cm (6' 4) 05/24/2017 8:08 AM EDT Body Mass Index 35.79 05/24/2017 8:08 AM EDT documented in this encounter Discharge Instructions * Discharge Instructions* Corinna Cabrera RN - 05/24/2017 10:53 AM EDT POST ANESTHESIA INSTRUCTIONS Go home, rest, use caution on stairs. Change positions slowly. Do not smoke if you are alone. Diet light to regular as tolerated today. If nausea occurs start with clear liquids and progress slowly. No driving, operating machinery, alcoholic beverages and no important decisions for 24 hours. Monitor IV site for signs and symptoms of infection: increasing redness, swelling, foul drainage, if occurs contact M.D. Patients who have had endotrachial tubes (this tube, used by anesthesia department, is passed down your throat after you are asleep, to ensure safe air passage during your operation). A sore throat is normal due to the tube. Cold liquids or soothing lozenges will help ease the discomfort. The generalized muscle aches are due to the medication given to you just before the tube is inserted. As the medication wears off, you may develop muscle soreness, which usually goes away in 12-24 hours. * Patient Instructions* Jan Regan - 05/24/2017 10:18 AM EDT Otolaryngology patient discharge instructions You have had a biopsy from your voice box and back of tongue and throat Instructions: -No straining for the next few days -Drink plenty of water. -Resume Eliquis on Wednesday -Eat a soft, non-spicy diet for the next few days. -Smoking is very damaging to your vocal cord healing and increases the chance of forming more polyps; so we strongly recommend not smoking. Especially during the next 2-3 weeks. -Use the prescription pain medication as needed. -Call if you develop stridor (noisy breathing), difficulty breathing, bleeding/coughing up blood, fever, worsening pain, or other concerning symptoms. A follow up appointment will be made in 2-3 weeks. If you don't hear from us within the next week, call the clinic at [phone] to confirm your appointment, or for questions or concerns post-operatively. Future Appointments Date Time Provider Department Center 06/03/2017 10:00 AM Kaiden Dos Santos MD [facility] 06/03/2017 12:30 PM RADIATION ONCOLOGY, NURSE [facility] 06/03/2017 1:00 PM Clement Sanchez MD [facility] 06/03/2017 2:00 PM Keiko Madera MD [facility] Etna [facility] 08/30/2017 1:30 PM Geovanna Deleon MD [facility] Contact numbers: Contact Information ENT triage nurse ENT doctor director of business continuity [phone] (after hours) documented in this encounter Medications at Time of Discharge Medication Sig Dispensed Refills Start Date End Date tamsulosin (FLOMAX) 0.4 mg Capsule, Sust. Release 24 hr Take 0.4 mg by mouth daily. CIALIS 10 mg Tablet 0 03/18/2017 07/29/20 17 glucosamine sulfate 500 mg Tablet Take by mouth daily. 017 melatonin 5 mg Tablet Take by mouth nightly as needed. 04/14/2018 apixaban (ELIQUIS) 5 mg Tablet Take 5 mg by mouth 2 times daily. 07/29/2017 documented as of this encounter Progress Notes * Corinna Cabrera RN - 05/24/2017 12:52 PM EDT Discharge instructions reviewed with pt and and both stated understanding info taught * Corinna Cabrera RN - 05/24/2017 11:54 AM EDT Pt had + gag reflex and was offered PO drink * Corinna Cabrera RN - 05/24/2017 10:44 AM EDT Pt was undressing and moving right arm, IV pulled out at this time documented in this encounter H&P Notes * Jan Regan - 05/24/2017 9:03 AM EDT 24-Hour Pre-Operative H&P Update Patient seen and examined in the Pre-Operative Area today. I have reviewed, and agree with, the clinical history, physical examination findings, impression, and plan, as detailed in the original H&P Note. No new clinically-significant changes to the patient's health. Patient is ready to proceed with theplanned surgical procedure. Jan Regan MD PGY-5 Otolaryngology [id number] documented in this encounter Miscellaneous Notes * Op Note - Keiko Madera MD - 05/24/2017 10:22 AM EDT [facility] Operative Note Patient Name: Jose Bee : [id number] MR#: [id number] Case Date: 05/24/2017 Surgeon: Surgeon(s) and Role: * Keiko Madera MD - Primary * Jan Regan MD - Resident-Surgeon Chief Preoperative diagnosis: base of tongue cancer Postoperative diagnosis: base of tongue cancer Procedure(s) (LRB): LARYNGOSCOPY, MICROSCOPE, WITH BIOPSY (WRVU 3.55) (N/A) BIOPSY, OROPHARYNX (WRVU 1.44) (N/A) Findings: Exophytic tumor at right tongue base extending onto tonsil and lateral pharyngeal wall laterally and extending onto lingual surface epiglottis posteriorly. Tumor approximately 2.5 cm in diameter, does not appear to cross midline. Biopsies at Left and right tongue base, left and right lingual surface epiglottis, right tonsil and right soft palate. Laryngoscopy with Wilfrido, and bougie for intubation. Anesthesia: General Estimated Blood Loss: 5 cc Specimens removed during surgery: as above Drains: none Surgical Closure: Other Than Primary Closure - deep and superficial layers are left completely openduring original surgery Disposition: awakened from anesthesia, extubated and taken to the recovery room in a stable condition, having suffered no apparent untoward event. Condition: doing well without problems (Please see the Surgical Encounter Summary for any Implant and Specimen details pertinent to this patient.) HPI/Surgical Indications: 66 y.o. Male w/ Afib, PE, on Eliquis presents for direct laryngoscopy andbiopsy of right tongue base tumor. Procedure Description: The patient was taken to the operating room, placed in the supine position, and general anesthesia was achieved without complication. The patient was spun 90- degrees from anesthesia breathing spontaneously under mask ventilation. Suspension laryngoscopy was performed using the Wilfrido laryngoscope. Alveolar ridge/teeth protected with toothguard. Zero-degree Gilmore viktor telescope with magnification on television monitor was then used to visualize the hypopharyngeal, supraglottic, and glottic structures. Patient was intubated using bougie and 7 ETT. Wilfrido was removed temporarily then replaced so that ETT no longer in lumen of the Wilfrido. Examination with telescopes was performed of tongue base, glottis, hypopharynx, lateral pharyngeal wall and soft palate and biopsies taken with cups forceps as noted above; topical hemostasis was performed with 1:1000 adrenaline on neuro pledgets and after confirmation of hemostasis, the wilfrido was removed from the mouth and patient taken out of suspension. Oral exam under anesthesia was performed and the patient was returned to anesthesia andallowed to awaken. He was taken to recovery area with no untoward events. Infection Bundle used? N/A Attestation: Case Date: 05/24/2017 I was present and I participated during the entire procedure (does not need to include opening and closing). KEIKO MADERA MD 05/24/2017 documented in this encounter Plan of Treatment Upcoming Encounters Date Type Department Care Team (Late st Contact Info) Description 08/01/2024 1:00 PM EDT Office Visit Hematology/Oncology at [address] [phone] Dmtiry Bhatti MD [facility] HEMATOLOGY/[place] [address] Ellen Mcrae APRN [facility] [place] [address] 08/01/2024 1:30 PM EDT Infusion Hematology Oncology at [address] [phone] documented as of this encounter Procedures Procedure Name Priority Date/Time Associated Diagnosis Comments LARYNGOSCOPY, MICROSCOPE, WITH BIOPSY Routine 05/24/2017 10:18 AM EDT SPECIMEN TO PATHOLOGY Routine 05/24/2017 10:09 AM EDT SPECIMEN TO PATHOLOGY Routine 05/24/2017 10:09 AM EDT SPECIMEN TO PATHOLOGY Routine 05/24/2017 10:08 AM EDT SPECIMEN TO PATHOLOGY Routine 05/24/2017 10:08 AM EDT SPECIMEN TO PATHOLOGY Routine 05/24/2017 10:08 AM EDT SPECIMEN TO PATHOLOGY Routine 05/24/2017 10:08 AM EDT SPECIMEN TO PATHOLOGY Routine 05/24/2017 10:08 AM EDT SURGICAL PATHOLOGY REPORT Routine 05/24/2017 10:07 AM EDT SURGICAL PATHOLOGY REPORT Routine 05/24/2017 10:07 AM EDT BIOPSY, OROPHARYNX (WRVU 1.44) 05/24/2017 9:24 AM EDT base of tongue cancer LARYNGOSCOPY, MICROSCOPE, WITH BIOPSY (WRVU 3.55) 05/24/2017 9:24 AM EDT base of tongue cancer documented in this encounter Results * Specimen to Pathology (surgical or derm) (05/24/2017 10:09 AM EDT) AP Specimen 05/24/2017 10:0 9 AM EDT 05/24/2017 10:09 AM EDT Narrative [facility] - 05/24/2017 10:09 AM EDT Specimen requisition ordered. ??Separate Pathology report to follow Keiko Madera MD PATHOLOGY/CYTOLOGY ORDERABLES [facility] [place] [address] * Specimen to Pathology (surgical or derm) (05/24/2017 10:09 AM EDT) AP Specimen 05/24/2017 10:0 9 AM EDT 05/24/2017 10:09 AM EDT Narrative [facility] - 05/24/2017 10:09 AM EDT Specimen requisition ordered. ??Separate Pathology report to follow Keiko Madera MD PATHOLOGY/CYTOLOGY ORDERABLES Performing Organization Address City/[facility]/ZIP Co de Phone Number [facility] [place] [address] * Specimen to Pathology (surgical or derm) (05/24/2017 10:08 AM EDT) AP Specimen 05/24/2017 10:0 8 AM EDT 05/24/2017 10:08 AM EDT Narrative [facility] - 05/24/2017 10:08 AM EDT Specimen requisition ordered. ??Separate Pathology report to follow Keiko Madera MD PATHOLOGY/CYTOLOGY ORDERABLES [facility] [place] [address] * Specimen to Pathology (surgical or derm) (05/24/2017 10:08 AM EDT) AP Specimen 05/24/2017 10:0 8 AM EDT 05/24/2017 10:08 AM EDT [facility] - 05/24/2017 10:08 AM EDT Specimen requisition ordered. ??Separate Pathology report to follow Keiko Madera MD PATHOLOGY/[place] [address] * Specimen to Pathology (surgical or derm) (05/24/2017 10:08 AM EDT) AP Specimen 05/24/2017 10:0 8 AM EDT 05/24/2017 10:08 AM EDT [facility] - 05/24/2017 10:08 AM EDT Specimen requisition ordered. ??Separate Pathology report to follow Keiko Maedra MD PATHOLOGY/CYTOLOGY ORDERABLES Performing Organization Address City/[facility]/[place] [address] * Specimen to Pathology (surgical or derm) (05/24/2017 10:08 AM EDT) AP Specimen 05/24/2017 10:0 8 AM EDT 05/24/2017 10:08 AM EDT [facility] - 05/24/2017 10:08 AM EDT Specimen requisition ordered. ??Separate Pathology report to follow Keiko Madera MD PATHOLOGY/CYTOLOGY ORDERABLES Performing Organization Address City/[facility]/[place] [address] * Specimen to Pathology (surgical or derm) (05/24/2017 10:08 AM EDT) AP Specimen 05/24/2017 10:0 8 AM EDT 05/24/2017 10:08 AM EDT [facility] - 05/24/2017 10:08 AM EDT Specimen requisition ordered. ??Separate Pathology report to follow Keiko Madera MD PATHOLOGY/CYTOLOGY ORDERABLES [facility] [place] [address] * Surgical Pathology Report (05/24/2017 10:07 AM EDT) Surgical Pathology Report [id number] ?Location: [facility]; [facility]; A The signing pathologist has (i) examined the relevant preparation(s) for the specimen(s) and (ii) rendered or confirmed the diagnosis(es). . ?Molecular Genetics RESULTS ?Human Papillomavirus (HPV) Genotyping Analysis Indication for Study: ?? Squamous Cell Carcinoma Specimen: ?? Right tongue base (F1-4) Analysis: ?? HPV Genotyping by Kennedy Linear Array HPV Genotyping Test Results: ??Positive for HPV genotype 16 Comments: ??The results of this test indicate that the submitted tissue contained one of the 37 HPV types detected by this assay. Methods: ?? Highly purified genomic DNA was extracted from a formalin fixed paraffin embedded tissue section after lysing of the cells. HPV genotyping was performed using the Linear Array HPV Genotpying Test that includes PCR for a consensus sequence found in high and low risk HPV types followed by gel electrophoresis, and a linear array (DNA transfer) with probes for 37 HPV types, 13 of which are high risk (16, 18, 31, 33, 35, 39, 45, 51, 52, 56, 58, 59, 68). ??Products were verified using gel electrophoresis. This test was developed and its performance determined by the [facility] laboratory for Clinical Genomics and Advanced Technology (CGAT). It has not been cleared or approved by the U.S. Food and Drug Administration. This test is used for clinical purposes and should not be considered as investigational or for research purposes. The [facility] is certified by the Clinical Laboratory Improvement Act of 1988 and as such is allowed to perform high complexity clinical testing. References: ?? Ila TW, Diego DH. Biochemistry 1991;30:1703-7500; Cash NEWTONM, et al. J pathol 1999;189:12-19; [place] MCLAIN, et al. J Clin Microbiol 2000 ?;38 ??:357-361. Reviewed by: Roel Heredia, PhD, [facility], Director-[facility] ([facility], 06/04/17 08:23) Electronically signed by: ??Mey Lockwood MD Verified: ??06/07/2017 ?Pathologist ?Surgical Pathology DIAGNOSIS A - Left tongue base, biopsy: Benign tonsillar tissue. B - Right soft palate, biopsy: Benign squamous mucosa. C - Right superior tonsil, biopsy: Benign tonsillar tissue. . DIAGNOSIS D - Left lingual surface epiglottis, biopsy: Benign squamous mucosa. E - Right lingual surface epiglottis, biopsy: - Benign squamous mucosa. - Detached fragments of squamous cell carcinoma in blood clot. F - Right tongue base, biopsy: Minimally keratinizing squamous cell carcinoma, p16 positive. G - Right tonsil, biopsy: Minimally keratinizing squamous cell carcinoma. Electronically signed by: ??Mey Lockwood MD Verified: ??05/26/2017 ?Pathologist DISCUSSION HPV genotyping has been ordered and will be reported in an addendum. ADDITIONAL STUDIES Immunohistochemistry Studies: Formalin-fixed, paraffin-embedded tissue sections are studied using the polymer technique with appropriate positive and negative controls. ?These IHC studies provide the pathologist with adjunctive diagnostic information. Antibody specificity has been verified by testing antibodies on a series of in-house tissues with known immunohistochemical performance characteristics. The clinical interpretation of any antibody positive staining or its absence is evaluated within the context of clinical presentation, morphology, histopathological criteria and other diagnostic tests. Block ? Antibody ?Result (Positive/Negative) F1 ?p16 ?Strongly positive CLINICAL INFORMATION Specimen Submitted: A - Left tongue base B - Right soft palate C - Right superior tonsil D - Left lingual surface epiglottis E - Right lingual surface epiglottis F - Right tongue base G - Right tonsil Clinical History: Rule out tongue cancer Clinical Diagnosis: Same SPECIMEN PROCESSING A - Labeled/Fixative: Left tongue base, fresh. Quantity/Size: Two, 0.2 and 0.4 cm. Tissue Description: ??Soft, red tissues . Sections/Processing: (T1) B - Labeled/Fixative: Right soft palate, fresh. Quantity/Size: Single, 0.2 cm. Tissue Description: ??Soft, red tissue . Sections/Processing: (T1) C - Labeled/Fixative: Right superior tonsil, fresh. . SPECIMEN PROCESSING Quantity/Size: Single, 0.4 cm. Tissue Description: ??Soft, red tissue . Sections/Processing: (T1) D - Labeled/Fixative: Left lingual surface epiglottis, fresh. Quantity/Size: Single, 0.2 cm. Tissue Description: ??Soft, pink tissue . Sections/Processing: (T1) E - Labeled/Fixative: Right lingual surface epiglottis, fresh. Quantity/Size: Two, averaging 0.3 cm. Tissue Description: ??Soft, pink tissues . Sections/Processing: (T1) F - Labeled/Fixative: Right tongue base, fresh. Quantity/Size: Three, ranging from 0.3-0.6 cm. Tissue Description: ??Soft, pink tissues . Sections/Processing: (T1) G - Labeled/Fixative: Right tonsil, fresh. Quantity/Size: Five, ranging from 0.2-0.5 cm. Tissue Description: ??Soft, red tissues . Sections/Processing: (T1) ??sns [facility] 05/24/2017 10:0 7 AM EDT Keiko Madera MD PATHOLOGY/CYTOLOGY ORDERABLES [facility] [place] [address] * Surgical Pathology Report (05/24/2017 10:07 AM EDT) Pathologist [facility] Surgical Pathology Report [id number] ?Location: [facility]; [facility]; A The signing pathologist has (i) examined the relevant preparation(s) for the specimen(s) and (ii) rendered or confirmed the diagnosis(es). . ?Surgical Pathology DIAGNOSIS A - Left tongue base, biopsy: [...] ?Pathologist DISCUSSION HPV genotyping has been ordered and will be reported in an addendum. ADDITIONAL STUDIES Immunohistochemistry Studies: Formalin-fixed, paraffin-embedded tissue sections are studied using the polymer technique with appropriate positive and negative controls. ?These IHC studies provide the pathologist with adjunctive diagnostic information. Antibody specificity has been verified by testing antibodies on a series of in-house tissues with known immunohistochemical performance characteristics. The clinical interpretation of any antibody positive staining or its absence is evaluated within the context of clinical presentation, morphology, histopathological criteria and other diagnostic tests. Block ? Antibody ?Result (Positive/Negative) F1 ?p16 ?Strongly positive CLINICAL INFORMATION Specimen Submitted: A - Left tongue base B - Right soft palate C - Right superior tonsil D - Left lingual surface epiglottis E - Right lingual surface epiglottis F - Right tongue base G - Right tonsil Clinical History: . CLINICAL INFORMATION Rule out tongue cancer Clinical Diagnosis: Same SPECIMEN PROCESSING A - Labeled/Fixative: Left tongue base, fresh. Quantity/Size: Two, 0.2 and 0.4 cm. Tissue Description: ??Soft, red tissues . Sections/Processing: (T1) B - Labeled/Fixative: Right soft palate, fresh. Quantity/Size: Single, 0.2 cm. Tissue Description: ??Soft, red tissue . Sections/Processing: (T1) C - Labeled/Fixative: Right superior tonsil, fresh. Quantity/Size: Single, 0.4 cm. Tissue Description: ??Soft, red tissue . Sections/Processing: (T1) D - Labeled/Fixative: Left lingual surface epiglottis, fresh. Quantity/Size: Single, 0.2 cm. Tissue Description: ??Soft, pink tissue . Sections/Processing: (T1) E - Labeled/Fixative: Right lingual surface epiglottis, fresh. Quantity/Size: Two, averaging 0.3 cm. Tissue Description: ??Soft, pink tissues . Sections/Processing: (T1) F - Labeled/Fixative: Right tongue base, fresh. Quantity/Size: Three, ranging from 0.3-0.6 cm. Tissue Description: ??Soft, pink tissues . Sections/Processing: (T1) G - Labeled/Fixative: Right tonsil, fresh. Quantity/Size: Five, ranging from 0.2-0.5 cm. Tissue Description: ??Soft, red tissues . Sections/Processing: (T1) ??sns [facility] 05/24/2017 10:0 7 AM EDT Keiko Madera MD PATHOLOGY/CYTOLOGY ORDERABLES [facility] [place] [address] documented in this encounter Visit Diagnoses Not on filedocumented in this encounter Administered Medications Inactive Administered Medications - up to 3 most recent administrations Medication Order MAR Action Action Date Dose Rate Site acetaminophen (TYLENOL) 650 mg/20.3 mL oral liquid 650 mg 650 mg, Oral, EVERY 4 HOURS PRN, Starting on Wed05/24/17 at 1131, Until Wed05/24/17 at 1454, Fever, Maximum dose of acetaminophen is 4000 mg from all sources in 24 hours. , Recovery (Recovery-Hospital Unit), Routine Given 05/24/2017 11:36 AM EDT 650 mg diphenhydrAMINE (BENADRYL) injection 25 mg 25 mg, Intravenous, ONCE, 1 dose, On Wed05/24/17 at 0900, Day of Surgery (Day of Procedure), Routine Given 05/24/2017 8:46 AM EDT 25 mg lactated Ringers infusion 1,000 mL 1,000 mL, at 100 mL/hr, Intravenous, CONTINUOUS, Starting on Wed05/24/17 at 0845, Until Wed05/24/17 at 1253, Day of Surgery (Day of Procedure) New Bag 05/24/2017 8:45 AM EDT 1,000 mLs 100 mL/hr documented in this encounter Active and Recently Administered Medications Times are shown in EDT. Scheduled Medication Order 05/22/2017 05/23/2017 05/24/2017 diphenhydrAMINE (BENADRYL) injection 25 mg (COMPLETED) 25 mg, Intravenous, ONCE, 1 dose, On Wed05/24/17 at 0900, Day of Surgery (Day of Procedure), Routine 0846 (Given - Provid er: Madisyn Seals RN)0900 (Due) Continuous Medication Order 05/22/2017 05/23/2017 05/24/2017 lactated Ringers infusion 1,000 mL (CANCELED) 1,000 mL, at 100 mL/hr, Intravenous, CONTINUOUS, Starting on Wed05/24/17 at 0845, Until Wed05/24/17 at 1253, Day of Surgery (Day of Procedure) 0845 (New Bag - Prov ider: Madisyn Seals RN) PRN Medication Order 05/22/2017 05/23/2017 05/24/2017 acetaminophen (TYLENOL) 650 mg/20.3 mL oral liquid 650 mg 650 mg, Oral, EVERY 4 HOURS PRN, Starting on Wed05/24/17 at 1131, Until Wed05/24/17 at 1454, Fever, Maximum dose of acetaminophen is 4000 mg from all sources in 24 hours. , Recovery (Recovery-Hospital Unit), Routine 1136 (Given - Provid er: Corinna Cabrera RN) acetaminophen (TYLENOL) tablet 650 mg 650 mg, Oral, EVERY 4 HOURS PRN, Starting on Wed05/24/17 at 1021, Until Wed05/24/17 at 1454, Pain, Maximum dose of acetaminophen is 4000 mg from all sources in 24 hours., Routine EPINEPHrine (ADRENALIN) nasal solution (CANCELED) ONCE PRN, Starting on Wed05/24/17 at 1019, Until Wed05/24/17 at 1454, Intra-Operative (Intra-Procedure), Routine 1019 (Given - Provid er: Keiko Madera MD) documented in this encounter Care Teams Health Professor Relationship Specialty Start Date End Date Jovon Sifuentes MD [address] [place] [address] PCP - General 09/30/10 09/10/21 documented as of this encounter
--- OUTSIDE RECORDS SUMMARY | 2024-05-18 11:34 | XMS_ITS | Encounter Summary ---
Author Organization Formerly [facility] [place] [address] Care Team Providers Care Cloud Systems Architect Name Role Phone Jovon Sifuentes MD Primary Care Provider [phone] Encounter Details Date Type Department Care Team (Late Contact Info) Description 04/29/2017 Telephone [place] [phone] Vane Cardona Social History Tobacco Use Types Packs/Day Years Used Date Smoking Tobacco: Former Comments:quit in 1996,smoked pipe until 5 years ago Sex and Gender Information Value Date Recorded Sex Assigned at Not on file Gender Identity Not on file Sexual Orientation Not on file documented as of this encounter Miscellaneous Notes * Telephone Encounter - Vane Cardona - 04/29/2017 10:18 AM EDT Left message for patient to call back to review upcoming appointments with , Dr. Sanchez and Dr. Dos Santos documented in this encounter Plan of Treatment Upcoming Encounters Date Type Department Care Team (Late Contact Info) Description 08/01/2024 1:00 PM EDT Office Visit Hematology/Oncology at [address] [phone] Dmitry Bhatti MD [facility] HEMATOLOGY/[place] [address] Ellen Mcrae APRN [facility] [place] [address] 08/01/2024 1:30 PM EDT Infusion Hematology Oncology at [address] [phone] documented as of this encounter Visit Diagnoses Not on filedocumented in this encounter Care Teams Cloud Systems Architect Relationship Specialty Start Date End Date Jovon Sifuentes MD [address] [place] [address] PCP - General 09/30/10 09/10/21 documented as of this encounter
--- OUTSIDE RECORDS SUMMARY | 2024-05-18 11:34 | XMS_ITS | Encounter Summary ---
Author Organization Formerly [facility] [place] [address] Care Team Providers Care Gas Jockey Name Role Phone Jovon Sifuentes MD Primary Care Provider Reason for Visit * Reason Comments Follow Up Surgery Laryngoscopy w/biops y 05/24/17 Encounter Details Date Type Department Care Team (Late st Contact Info) Description 06/03/2017 2:20 PM EDT Office [place] [phone] Zafar Madera MD [facility] DR OTOLARYNGOLOGY [place] [address] Tonsil cancer Social History Tobacco Use Types Packs/Day Years Used Date Smoking Tobacco: Former Cigarettes - 1995 Pipe Comments:quit cigarettes in 1995 [...] - Inhaled Oxygen Concentration - - Weight 138.3 kg (305 lb) 06/03/2017 2:25 PM EDT Height 188 cm (6' 2) 06/03/2017 2:25 PM EDT Body Mass Index 39.16 06/03/2017 2:25 PM EDT documented in this encounter Progress Notes * Zafar Madera MD - 06/03/2017 2:20 PM EDT Images from the original note were not included. Subjective: Patient ID: Jose Bee is a 66 y.o. male. 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 In view of symptoms and presentation felt to likely represent GERD vs LPR. He was seen more recently in view that in the last 2-3 months he has had discomfort on the right side of his throat with occasional right referred pressure in the right ear without change in his diet or voice. No new cough or hemoptysis. He was seen by PCP and referred to Dr Elkins and noted to have a lesion in the right base of tongue region. There was a plan to take the patient to the OR after he had a CT scan of the neck however 10 days ago patient presented acutely to the local ED with SOB and right sided RSCP felt to be related to bronchitis. He was called back by the ED after image review and diagnosis of PE made. Patient has completed his course of antibiotics and has been placed on Eliquist for his PE. He says that the chest pain has resolved. He was not given a clear plan about the use of his eliquist. He denies orthopnea. Has snoring and some symptoms of KORI but no formal diagnosis. He was taken to the OR for triple endoscopy and biopsies with folllowing findings of a localized mass in the inferior right tonsil and adjoining lateral base of tongue region. Pathology: A - Left tongue base, biopsy: Benign tonsillar tissue. B - Right soft palate, biopsy: Benign squamous mucosa. C - Right superior tonsil, biopsy: Benign tonsillar tissue. D - Left lingual surface epiglottis, biopsy: Benign squamous mucosa. He had no issue with his recovery. COmes in after discussions with Lizabeth Sanchez and Levon. Past Medical History: Diagnosis Date ??? Arthritis ??? Atrial fibrillation ??? BPH (benign prostatic hyperplasia) ??? Cataract, right eye ??? ED (erectile dysfunction) ??? Hypothyroidism ??? Pulmonary embolism Past Surgical History: Procedure Laterality Date ??? [place] T[place] [facility] [place] KNEE ARTHROSCOPY [facility]. [facility] ??? PRO BIOPSY OROPHARYNX N/A 05/24/2017 BIOPSY, OROPHARYNX (WRVU 1.44) performed by Zafar Madera MD at [facility] MAIN OR ??? PRO LARYNGOSCOPY, DIRCT, OP SCOPE, BIOPSY N/A 05/24/2017 LARYNGOSCOPY, MICROSCOPE, WITH BIOPSY (WRVU 3.55) performed by Zafar Madera MD at [facility] MAIN OR ??? QUADRACEPS TENDON REPAIR Right 04/2016 [facility] ??? TONSILLECTOMY Current Outpatient Prescriptions: ??? CIALIS 10 mg [...] mouth 2 times daily., Disp: , Rfl: Allergies Allergen Reactions ??? Ibuprofen CIS - Nausea/Vomiting ??? Clindamycin Other (See Comments) Memory issues. Patient Active Problem List Diagnosis Code ??? Carcinoma of base of tongue C01 ??? Acute pulmonary embolism I26.99 ??? Benign prostatic hyperplasia N40.0 ??? Atrial fibrillation I48.91 ??? KORI on CPAP G47.33, Z99.89 ??? Adult BMI 30+ E66.8 History reviewed. No pertinent family history. There is no pertinent family history of otolaryngologic problems Review of Systems: A complete review of constitutional, eyes, cardiovascular, respiratory, GI, , musculo-skeletal, skin, endocrine, psychiatric, hematologic, lymphatic and immunologic systems is completed and is as noted in the HPI. All other systems are otherwise negative. Social History Social History ??? Marital status: Spouse name: Briana ??? Number of children: 4 ??? 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 He is to Briana for 40 yrs. 4 children - All live in different states - [place] Enjoys raising Beef Cattle and doing Civil War and Living History and shoot Black powder/Antique firearms. He enjoys builiding Firearms/Blacksmithing - [place], [place], etc. Review of Systems Objective: Physical Exam Constitutional: He is oriented to person, place, and time. He appears well- developed and well-nourished. No distress (normal speech and voice, no stridor). HENT: Head: Normocephalic. Right Ear: Tympanic membrane, external ear and ear canal normal. No tenderness. No middle ear effusion. Left Ear: Tympanic membrane, external ear and ear canal normal. No tenderness. No middle ear effusion. Nose: Mucosal edema and septal deviation present. No sinus tenderness or nasal deformity. Mouth/Throat: Uvula is midline, oropharynx is clear and moist and mucous membranes are normal. No oral lesions. No trismus in the jaw. Normal dentition. No oropharyngeal exudate. Eyes: Conjunctivae and EOM are normal. Pupils are equal, round, and reactive to light. No scleral icterus. Neck: Normal range of motion. Neck supple. Carotid bruit is not present. No tracheal deviation present. No thyroid mass and no thyromegaly present. Pulmonary/Chest: Effort normal. No stridor. No respiratory distress. Lymphadenopathy: He has no cervical adenopathy (palpable mobile 1 cm rubbery right zone 2 node, posterior to submandibular gland near parotid tail). Neurological: He is alert and oriented to person, place, and time. He has normal reflexes. No cranial nerve deficit. Skin: Skin is warm. He is not diaphoretic. No erythema. Psychiatric: He has a normal mood and affect. His behavior is normal. Judgment and thought content normal. Nursing note and vitals reviewed. CT scan of neck: 3 cm x 2 cm area of contrast enhancement at the base fo the right tonsil and rightlingual tonsilregion to the lingual aspect of the left side of the epiglottis. Small node in inferior right parotid tail region. Small node posterior to the submandibular gland. Carotid plaque. I reviewed personally his chest CT which shows a small pleural effusion on the right side, and no concerning nodules, but findings c/w PE. His insurance did not approve a PET-CT on basis that he has had a recent CT of the chest Assessment and Plan: ASSESSMENT/PLAN: Based on today's findings Patient with SCCa BOT who would be a candidate for either TORS or possibly only radiation therapy. One concern expressed at was presentation with PE and concern that this may represent metastatic disease. Discussion this AM reflected the fact that the PET-CT would be the only way to make sure that there are no other active sites in the neck OR chest. Dr Dos Santos will call his insurer in regards to approval. I also spoke to Dr Contreras about candidacy for TORS and I will set up an appointment for this. documented in this encounter Plan of Treatment Upcoming Encounters Date Type Department Care Team (Late st Contact Info) Description 08/01/2024 1:00 PM EDT Office Visit Hematology/Oncology at [address] [phone] Dmitry Bhatti MD [facility] HEMATOLOGY/[place] [address] Ellen Mcrae APRN [facility] [place] [address] 08/01/2024 1:30 PM EDT Infusion Hematology Oncology at [address] [phone] documented as of this encounter Visit Diagnoses Diagnosis Tonsil cancer Malignant neoplasm of tonsil documented in this encounter Care Teams Gas Jockey Relationship Specialty Start Date End Date Jovon Sifuentes MD [address] [place] [address] PCP - General 09/30/10 09/10/21 documented as of this encounter
--- OUTSIDE RECORDS SUMMARY | 2024-05-18 11:34 | XMS_ITS | Encounter Summary ---
[place] [address] Care Team Providers Care Obiee Architect Name Role Phone Jovon Sifuentes MD Primary Care Provider [phone] Encounter Details Date Type Department Care Team (Late st Contact Info) Description 06/21/2017 Telephone [place] [phone] Rhianna Page RN Social History Tobacco Use Types Packs/Day [...] encounter Miscellaneous Notes * Telephone Encounter - Rhianna Page, BRENAN - 06/21/2017 9:33 AM EDT Patient of 'pato who is scheduled for surgery on 07-13-17. Phone call to the patient to review medication list. Patient instructed to stop his Eliquis 48 hours prior to surgery, but should he should discuss withhis pcp prior to stopping. Patient on Eliquis for a blood clot in his lungs after an episode of pneumonia last year. He statesthat he was able to stop it for his recent biopsy. Recommended that the patient also discuss this with his pcp or the provider that prescribed the Eliquis. He is in agreement with the plan. documented in this encounter Plan of Treatment Upcoming Encounters Date Type Department Care Team (Late st Contact Info) Description 08/01/2024 1:00 PM EDT Office Visit Hematology/Oncology at [address] [phone] Dmitry Bhatti MD [facility] DR HEMATOLOGY/[place] [address] Ellen Mcrae APRN [facility] [place] [address] 08/01/2024 1:30 PM EDT Infusion Hematology Oncology at [address] [phone] documented as of this encounter Visit Diagnoses Not on filedocumented in this encounter Care Teams Obiee Architect Relationship Specialty Start Date End Date Jovon Sifuentes MD [address] [place] [address] PCP - General 09/30/10 09/10/21 documented as of this encounter
--- OUTSIDE RECORDS SUMMARY | 2024-05-18 11:34 | XMS_ITS | Encounter Summary ---
[place] [address] Care Team Providers Care Flour Mixer Name Role Phone Jovon Sifuentes MD Primary Care Provider Reason for Referral * Diagnostic Test (Routine) - Closed Specialty Diagnoses / Procedures Referred By Contac t Referred To Contact Cardiology Diagnoses Atrial fibrillation, unspecified type Cardiomegaly Pulmonary infarction Procedures Echocardiogram Transthoracic(Leb) Jovon Sifuentes MD [address] [place] [address] [facility] [place] [address] Referral ID Status Reason Start Date Expiration Date V isits Requested Visits Authorized [id number] Closed Specialty Service Requested 04/07/2017 04/07/2018 1 1 Reason for Visit * Diagnostic Test (Routine) - Closed Specialty Diagnoses / Procedures Referred By Contac t Referred To Contact Cardiology Diagnoses Atrial fibrillation, unspecified type Cardiomegaly Pulmonary infarction Procedures Echocardiogram Transthoracic(Leb) Jovon Sifuentes MD [address] [place] [address] [facility] [place] [address] Referral ID Status Reason Start Date Expiration Date V isits Requested Visits Authorized [id number] Closed Specialty Service Requested 04/07/2017 04/07/2018 1 1 Encounter Details Date Type Department Care Team (Latest Contact Info) Description 04/30/2017 8:23 AM EDT - 04/30/2017 11:59 PM EDT Hospital Encounter Non-Invasive [place] [address] Atrial fibrillation, unspecified type; Cardiomegaly; Pulmonary infarction Discharge Disposition: Home Social History Tobacco Use [...] PM EDT Office Visit Hematology/Oncology at [address] [phone] Dmitry Bhatti MD [facility] DR HEMATOLOGY/[place] [address] Ellen Mcrae APRN [facility] [place] [address] 08/01/2024 1:30 PM EDT Infusion Hematology Oncology at [address] [phone] documented as of this encounter Procedures Procedure Name Priority Date/Time Associated Diagnosis Comments ECHO COMPLETE W CONTRAST Routine 04/30/2017 9:26 AM EDT Atrial fibrillation, unspecified type Cardiomegaly Pulmonary infarction documented in this encounter Results * ECHO COMPLETE W CONTRAST (04/30/2017 9:26 AM EDT) EF 60 HEARTLAB SYSTEM Anatomical Region Laterality Modality Other 04/30/2017 Narrative 04/30/2017 9:43 AM EDT Procedure: ?Transthoracic Echocardiogram Patient: ?EUSEBIA NORMAN M ?? (Age): 1950(66y) Med Rec#: ? [id number] ?Sex: ?M ? Site Loc: ? [facility] ?Ht / Wt: ??193(cm)/139(kg) Pt. Loc: ?Echo Lab ?BSA: ?2.66 Study Date: ?? 04/30/2017 ?Pt. Type: Outpatient Tape: ? Referring: Jovon Sifuentes Referring: Kashmir Lr ([id number]) Reading: Russ Weber ([id number]) [employer] Teacher: Marysol Zavala BA, [facility] Diagnosis: *ICD-10-PCS Unspecified atrial fibrillation (I48.91) *ICD-10-PCS Cardiomegaly (I51.7) CPT Codes: *Optison (36424FS) Rhythm: ? A-Fib BP: ? 121/71 SUMMARY: 1. The left ventricular chamber size is normal. Left ventricular wall thickness is normal. There is normal global left ventricular systolic function. The quantitative left ventricular ejection fraction by biplane Carrillo's method is 60% (with some beat to beat variability due to afib). There are no left ventricular segmental wall motion abnormalities. 2. Right ventricular chamber size, wall thickness, and systolic function are within normal limits. Pulmonary artery pressures could not be assessed due to inadequate tricuspid regurgitation jet. 3. There is no hemodyanmically significant valvular disease. 4. See remainder of report for additional findings. ??No prior echo for comparison. Findings ? : Study Quality: ? Technically limited Left Ventricle: ? The left ventricular chamber size is normal. ?Left ventricular wall thickness is normal. ?There is normal global left ventricular systolic function. ?The quantitative left ventricular ejection fraction by biplane Carrillo's method is 60%. ?There are no left ventricular segmental wall motion abnormalities. ?Left sided filling pressure could not be assessed by Doppler. Left Atrium: ? The left atrium is moderately dilated. (45 ml/m2 by volume index) Right Ventricle: ? Right ventricular chamber size, wall thickness, and systolic function are within normal limits. ?Pulmonary artery hypertension could not be assessed due to inadequate tricuspid regurgitation jet. Right Atrium: ? The right atrium is moderately dilated. Aortic Valve: ? The aortic valve is tricuspid. ?The aortic valve leaflets are mildly thickened. ?There is no evidence of aortic valve stenosis. ?There is no evidence of aortic regurgitation. Mitral Valve: ? The mitral valve appears normal in structure and function. ?There is trace mitral regurgitation present. Tricuspid Valve: ? The tricuspid valve appears normal in structure and function. ?There is trace tricuspid regurgitation present. Pulmonic Valve: ? The pulmonic valve appears normal in structure and function. ?There is trace pulmonic regurgitation present. Pericardium: ? A pericardial fat pad is visualized. Aorta: ? The aortic root is normal in size. ?The ascending aorta is normal in size. Pulmonary Artery: ? The main pulmonary artery appears normal. Venous: ? The inferior vena cava appears normal in size. ?There is a greater than 50% respiratory change in the inferior vena cava dimension. Misc: ? See remainder of report for additional findings. ?Two-dimensional echo, spectral Doppler and color Doppler performed. ?Optison contrast (one 3 ml vial) was used to enhance endocardial definition. Excess contrast was discarded. Chambers 2D ?Value ?Units (Range) ? IVSd (2D) ? 0.9 ?cm ? LVPWd (2D) ?1 ?cm ? IVS:LVPW ratio (2D) 0.9 ?ratio ? LVIDd (2D) ?4.6 ?cm ? LVIDs (2D) ?3.2 ?cm ? LVIDd (2D) index ?1.7 ?cm/m2 ? LVIDs (2D) index ?1.2 ?cm/m2 ? LV FS (2D) ?29 ? % ? EF Teichholz (2D) ?? 57 ? % ? Ao root diameter (2D3.3 ?cm (2.1 - 3.6) ? Ascending Ao ?3.1 ?cm (2 - 3.5) ? Volumes/Mass ?Value ?Units (Range) ? LA Area 2 CH ?31.2 ? cm2 ? RA AREA 4CH ? 26.2 ? cm2 ? LA ESV SP 4CH (MOD) 117 ?ml ? LA ESV SP 2CH (MOD) 109 ?ml ? LA ESV BP (MOD) ? 120 ?ml ? LA ESV BP (MOD) inde45.1 ? ml/m2 ? LV ESV SP 4CH (MOD) 72.1 ? ml ? LV ESV SP 2CH (MOD) 51.5 ? ml ? LV EDV BP ? 161 ?ml ? LV ESV BP ? 64 ? ml ? BP EF (MOD) ? 60 ? % ? LV mass (2D) ?154.3 ?g ? LV mass (2D) index ??58 ? g/m2 ? Diastolic/Systolic Function ?Value ?Units (Range) ? MV E-wave Vmax ?1 ?m/sec ? LV septal e' Vmax ?? 0.1 ?m/sec ? LV E:e' septal ratio12.9 ? ratio ? Tricuspid Valve ?Value ?Units (Range) ? TAPSE ? 2 ?cm ? Pulmonic Valve/Qp:Qs ?Value ?Units (Range) ? NM end-diastolic Vma0.8 ?m/sec ? Measurement Trending Name ? 04/30/2017 ? LV EDV BP ?161 LVIDd (2D) ? 4.58 LV ESV BP ?64 LA ESV BP (MOD) ?120 LVIDs (2D) ? 3.23 Wall Motion: Segment Name ?Rest ? Base-Anteroseptal ?? Normal ? Base-Anterior ? Normal ? Base-Anterolateral ??Normal ? Base-Posterolateral Normal ? Base-Inferior ? Normal ? Base-Inferoseptal ?? Normal ? Mid-Anteroseptal ?Normal ? Mid-Anterior ?Normal ? Mid-Anterolateral ?? Normal ? Mid-Posterolateral ??Normal ? Mid-Inferior ?Normal ? Mid-Inferoseptal ?Normal ? Amenia-Septal ? Normal ? Amenia-Anterior ? Normal ? Amenia-Lateral ?Normal ? Amenia-Inferior ? Normal ? Amenia-Tip ?Normal ? This report has been electronically signed by: Russ Weber MD ? 04/30/2017 09:43:10 Images reviewed and interpretation verified [facility] Cardiac Ultrasound Laboratory Procedure Note Russ Weber MD - 04/30/2017 Procedure: Transthoracic Echocardiogram Patient: EUSEBIA Anaya (Age): 1950(66y) Med Rec#: [id number] Sex: M Site Loc: [facility] [place] Ht / Wt: 193(cm)/139(kg) Pt. Loc: Echo Lab BSA: 2.66 Study Date: 04/30/2017 Pt. Type: Outpatient Tape: Referring: Jovon Sifuentes Referring: Kashmir Lr ([id number]) Reading: Russ Weber ([id number]) [employer] Teacher: Marysol Zavala BA, [facility] Diagnosis: *ICD-10-PCS Unspecified atrial fibrillation (I48.91) *ICD-10-PCS Cardiomegaly (I51.7) CPT Codes: *Optison (07595RE) Rhythm: A-Fib BP: 121/71 SUMMARY: 1. The left ventricular chamber size is normal. Left ventricular wall thickness is normal. There is normal global left ventricular systolic function. The quantitative left ventricular ejection fraction by biplane Carrillo's method is 60% (with some beat to beat variability due to afib). There are no left ventricular segmental wall motion abnormalities. 2. Right ventricular chamber size, wall thickness, and systolic function are within normal limits. Pulmonary artery pressures could not be assessed due to inadequate tricuspid regurgitation jet. 3. There is no hemodyanmically significant valvular disease. 4. See remainder of report for additional findings. No prior echo for comparison. Findings : Study Quality: Technically limited Left Ventricle: The left ventricular chamber size is normal. Left ventricular wall thickness is normal. There is normal global left ventricular systolic function. The quantitative left ventricular ejection fraction by biplane Carrillo's method is 60%. There are no left ventricular segmental wall motion abnormalities. Left sided filling pressure could not be assessed by Doppler. Left Atrium: The left atrium is moderately dilated. (45 ml/m2 by volume index) Right Ventricle: Right ventricular chamber size, wall thickness, and systolic function are within normal limits. Pulmonary artery hypertension could not be assessed due to inadequate tricuspid regurgitation jet. Right Atrium: The right atrium is moderately dilated. Aortic Valve: The aortic valve is tricuspid. The aortic valve leaflets are mildly thickened. There is no evidence of aortic valve stenosis. There is no evidence of aortic regurgitation. Mitral Valve: The mitral valve appears normal in structure and function. There is trace mitral regurgitation present. Tricuspid Valve: The tricuspid valve appears normal in structure and function. There is trace tricuspid regurgitation present. Pulmonic Valve: The pulmonic valve appears normal in structure and function. There is trace pulmonic regurgitation present. Pericardium: A pericardial fat pad is visualized. Aorta: The aortic root is normal in size. The ascending aorta is normal in size. Pulmonary Artery: The main pulmonary artery appears normal. Venous: The inferior vena cava appears normal in size. There is a greater than 50% respiratory change in the inferior vena cava dimension. Misc: See remainder of report for additional findings. Two-dimensional echo, spectral Doppler and color Doppler performed. Optison contrast (one 3 ml vial) was used to enhance endocardial definition. Excess contrast was discarded. Chambers 2D Value Units (Range) IVSd (2D) 0.9 cm LVPWd (2D) 1 cm IVS:LVPW ratio (2D) 0.9 ratio LVIDd (2D) 4.6 cm LVIDs (2D) 3.2 cm LVIDd (2D) index 1.7 cm/m2 LVIDs (2D) index 1.2 cm/m2 LV FS (2D) 29 % EF Teichholz (2D) 57 % Ao root diameter (2D3.3 cm (2.1 - 3.6) Ascending Ao 3.1 cm (2 - 3.5) Volumes/Mass Value Units (Range) LA Area 2 CH 31.2 cm2 RA AREA 4CH 26.2 cm2 LA ESV SP 4CH (MOD) 117 ml LA ESV SP 2CH (MOD) 109 ml LA ESV BP (MOD) 120 ml LA ESV BP (MOD) inde45.1 ml/m2 LV ESV SP 4CH (MOD) 72.1 ml LV ESV SP 2CH (MOD) 51.5 ml LV EDV BP 161 ml LV ESV BP 64 ml BP EF (MOD) 60 % LV mass (2D) 154.3 g LV mass (2D) index 58 g/m2 Diastolic/Systolic Function Value Units (Range) MV E-wave Vmax 1 m/sec LV septal e' Vmax 0.1 m/sec LV E:e' septal ratio12.9 ratio Tricuspid Valve Value Units (Range) TAPSE 2 cm Pulmonic Valve/Qp:Qs Value Units (Range) NM end-diastolic Vma0.8 m/sec Measurement Trending Name 04/30/2017 LV EDV BP 161 LVIDd (2D) 4.58 LV ESV BP 64 LA ESV BP (MOD) 120 LVIDs (2D) 3.23 Wall Motion: Segment Name Rest Base-Anteroseptal Normal Base-Anterior Normal Base-Anterolateral Normal Base-Posterolateral Normal Base-Inferior Normal Base-Inferoseptal Normal Mid-Anteroseptal Normal Mid-Anterior Normal Mid-Anterolateral Normal Mid-Posterolateral Normal Mid-Inferior Normal Mid-Inferoseptal Normal Amenia-Septal Normal Amenia-Anterior Normal Amenia-Lateral Normal Amenia-Inferior Normal Amenia-Tip Normal This report has been electronically signed by: Russ Weber MD 04/30/2017 09:43:10 Images reviewed and interpretation verified [facility] Cardiac Ultrasound Laboratory Jovon Sifuentes MD ECHO ORDERABLES documented in this encounter Visit Diagnoses Diagnosis Atrial fibrillation, unspecified type Cardiomegaly Pulmonary infarction Other pulmonary embolism and infarction documented in this encounter Care Teams Flour Mixer Relationship Specialty Start Date End Date Jovon Sifuentes MD [address] [place] [address] PCP - General 09/30/10 09/10/21 documented as of this encounter
--- OUTSIDE RECORDS SUMMARY | 2024-05-18 11:34 | XMS_ITS | Encounter Summary ---
[place] [address] Care Team Providers Care Coffee Brewer Name Role Phone Jovon Sifuentes MD Primary Care Provider [phone] Reason for Visit * Auth/Cert Specialty Diagnoses / Procedures Referred By Huma t Referred To Contact Diagnoses base of tongue cancer Procedures PRO LARYNGOSCOPY, DIRECT, DX, OP MICROSCOP PRO BIOPSY OROPHARYNX LARYNGOSCOPY, WITH MICROSCOPE (WRVU 2.57) BIOPSY, OROPHARYNX (WRVU 1.44) Referral ID Status Reason Start Date Expiration Date Visits Re quested Visits Authorized [id number] 1 1 Encounter Details Date Type Department Care Team (Late st Contact Info) Description 05/24/2017 8:58 AM EDT - 05/24/2017 10:26 AM EDT [place] [address] Keiko Madera MD [facility] [place] [address] LARYNGOSCOPY, MICROSCOPE, WITH BIOPSY (WRVU 3.55) Social History Tobacco Use Types Packs/Day Years [...] Sign Reading Time Taken Comments Blood Pressure 116/65 05/24/2017 8:17 AM EDT Pulse 69 05/24/2017 8:17 AM EDT Temperature 36.4 ??C (97.5 ??F) 05/24/2017 8:17 AM ED T Respiratory Rate - - Oxygen Saturation 96% 05/24/2017 8:17 AM EDT Inhaled Oxygen Concentration - - [...] the next week, call the clinic at [phone] to confirm your appointment, or for questions or concerns post-operatively. Future Appointments Date Time Provider Department Center 06/03/2017 10:00 AM Kaiden Dos Santos MD [facility] 06/03/2017 12:30 PM RADIATION ONCOLOGY, NURSE [facility] 06/03/2017 1:00 PM Clement Sanchez MD [facility] 06/03/2017 2:00 PM Keiko Madera MD [facility]b Ronald [facility] 08/30/2017 1:30 PM Geovanna Deleon MD [facility] Contact numbers: Contact Information ENT triage nurse ENT doctor photonic laboratory technician [phone] (after hours) documented in this encounter Medications [...] Madera MD - 05/24/2017 10:[address] [facility] [place] Patient Name: Jose Bee : [id number] MR#: [id number] Case Date: 05/24/2017 Surgeon: Surgeon(s) and Role: [...] PM EDT Office Visit Hematology/Oncology at [address] [phone] Dmitry Bhatti MD [facility] HEMATOLOGY/[place] [address] Ellen Mcrae APRN [facility] [place] [address] 08/01/2024 1:30 PM EDT Infusion Hematology Oncology at [address] [phone] documented as of this encounter Procedures Procedure [...] AM EDT 05/24/2017 10:09 AM EDT Narrative [facility] - 05/24/2017 10:09 AM EDT Specimen requisition ordered. ??Separate Pathology report to follow Keiko Madera MD PATHOLOGY/[place] [address] * Specimen to Pathology (surgical or derm) (05/24/2017 10:09 AM EDT) AP Specimen 05/24/2017 10:0 9 AM EDT 05/24/2017 10:09 AM EDT Narrative [facility] - 05/24/2017 10:09 AM EDT Specimen requisition ordered. ??Separate Pathology report to follow Keiko Madera MD PATHOLOGY/[place] [address] * Specimen to Pathology (surgical or derm) (05/24/2017 10:08 AM EDT) AP Specimen 05/24/2017 10:0 8 AM EDT 05/24/2017 10:08 AM EDT Narrative [facility] - 05/24/2017 10:08 AM EDT Specimen requisition ordered. ??Separate Pathology report to follow Keiko Madera MD PATHOLOGY/CYTOLOGY ORDERABLES [facility] [place] [address] * Specimen to Pathology (surgical or derm) (05/24/2017 10:08 AM EDT) AP Specimen 05/24/2017 10:0 8 AM EDT 05/24/2017 10:08 AM EDT [facility] - 05/24/2017 10:08 AM EDT Specimen requisition ordered. ??Separate Pathology report to follow Keiko Madera MD PATHOLOGY/CYTOLOGY ORDERABLES Performing Organization Address City/[facility]/ZIP Co de Phone Number [facility] [place] [address] * Specimen to Pathology (surgical or derm) (05/24/2017 10:08 AM EDT) AP Specimen 05/24/2017 10:0 8 AM EDT 05/24/2017 10:08 AM EDT Narrative [facility] - 05/24/2017 10:08 AM EDT Specimen requisition ordered. ??Separate Pathology report to follow Keiko Madera MD PATHOLOGY/CYTOLOGY ORDERABLES Performing Organization Address City/[facility]/ZIP Co de Phone Number [facility] [place] [address] * Specimen to Pathology (surgical or derm) (05/24/2017 10:08 AM EDT) AP Specimen 05/24/2017 10:0 8 AM EDT 05/24/2017 10:08 AM EDT Narrative [facility] - 05/24/2017 10:08 AM EDT Specimen requisition ordered. ??Separate Pathology report to follow Keiko Madera MD PATHOLOGY/CYTOLOGY ORDERABLES Performing Organization Address City/[facility]/[place] [address] * Specimen to Pathology (surgical or derm) (05/24/2017 10:08 AM EDT) AP Specimen 05/24/2017 10:0 8 AM EDT 05/24/2017 10:08 AM EDT [facility] - 05/24/2017 10:08 AM EDT Specimen requisition ordered. ??Separate Pathology report to follow Keiko Madera MD PATHOLOGY/CYTOLOGY ORDERABLES [facility] [place] [address] * Surgical Pathology Report (05/24/2017 10:07 AM EDT) Surgical Pathology Report [id number] ?Location: [facility]; [facility]; A The signing pathologist has (i) examined [...] developed and its performance determined by the [facility] laboratory for Clinical Genomics and Advanced Technology (CGAT). It has not been cleared or approved by the U.S. Food and Drug Administration. This test is used for clinical purposes and should not be considered as investigational or for research purposes. The [facility] is certified by the Clinical Laboratory Improvement Act of 1988 and as such is allowed to perform high complexity clinical testing. References: ?? Ila TW, Diego CORLEY. Biochemistry 1991;30:4348-1948; Cash NEWTONM, et al. J pathol 1999;189:12-19; [place] MCLAIN, et al. J Clin Microbiol 2000 ?;38 ??:357-361. Reviewed by: Roel Heredia, PhD, [facility], Director-[facility] ([facility], 06/04/17 08:23) Electronically signed by: ??Mey [...] ??Soft, red tissues . Sections/Processing: (T1) ??sns [facility] 05/24/2017 10:0 7 AM EDT Keiko Madera MD PATHOLOGY/CYTOLOGY ORDERABLES [facility] [place] [address] * Surgical Pathology Report (05/24/2017 10:07 AM EDT) Surgical Pathology Report [id number] ?Location: [facility]; [facility]; A The signing pathologist has (i) examined [...] ??Soft, red tissues . Sections/Processing: (T1) ??sns [facility] 05/24/2017 10:0 7 AM EDT Keiko Madera MD PATHOLOGY/CYTOLOGY ORDERABLES [facility] [place] [address] documented in this encounter Visit Diagnoses Not [...] Given 05/24/2017 8:46 AM EDT 25 mg EPINEPHrine (ADRENALIN) nasal solution ONCE PRN, Starting on Wed05/24/17 at 1019, Until Wed05/24/17 at 1454, Intra-Operative (Intra-Procedure), Routine Given 05/24/2017 10:19 AM EDT 1 puff lactated Ringers infusion 1,000 mL 1,000 mL, [...] MD) documented in this encounter Care Teams Coffee Brewer Relationship Specialty Start Date End Date Jovon Sifuentes MD [address] [place] [id number] PCP - General 09/30/10 09/10/21 documented as of this encounter
--- OUTSIDE RECORDS SUMMARY | 2024-05-18 11:34 | XMS_ITS | Encounter Summary ---
Author Organization [facility] [place] [address] Care Team Providers Care Cad Detailer Name Role Phone Jovon Sifuentes MD Primary Care Provider [phone] Reason for Visit * Auth/Cert Specialty Diagnoses [...] Expiration Date Visits Re quested Visits Authorized [id number] 1 1 Encounter Details Date Type Department Care Team (Late st Contact Info) Description 07/13/2017 8:03 AM EDT Anesthesia [facility] [place] [address] Jane Quezada MD [facility] [address] Karla Chavarria CRNA [facility] [place] [address] Anesthesia Record Procedure Summary Procedure Name Responsible Anesthesiologist Anesthesia Start Time Anesthesia Stop Time PHARYNGECTOMY, LIMITED (WRVU 19.13) (Throat) Jane Quezada MD 07/13/17 0803 07/13/171948 Events Date Time Event Comment 07/13/2017 0705 0803 AN Verify 0803 Start 0803 An Start Data 0810 An Induction 0815 An Intubation 0842 Anesthesia Ready 1032 ABG Data Arterial Blood Gas result: pH 7.31 pCO2 45 pO2 87 %O2 Sat 95 FiO2 38 HCO3 22.2 BE -4 Hb 15.6 K 5.04 Glucose 119 Lactate 2.10 1143 Quick Note Patient is havi ng relative hypoxia with low FiO2 (25%) for laser. Dr Yanez and Dr. Contreras agreed that if Sats dropped to 88% and were sustained then we would back off laser and hyperoxygenate the patient. 1215 ABG Data Arterial Blood Gas result: pH 7.34 pCO2 38.7 pO2 68.2 %O2 Sat 91.8 FiO2 25% HCO3 20.4 BE -5.4 Hb 15.8 K 5.7 Glucose 125 Lactate 3.[address] Yanez ca me to room and patient's most recent blood gas was discussed with the entire intraoperative team. Complete metabolic panel was sent to the lab. Fluid were changed to NS. Patient will be given 100% FiO2 while not lasering. 1406 ABG Data Arterial Blood Gas result: pH 7.32 pCO2 31.5 pO2 96.3 %O2 Sat 96.1 FiO2 HCO3 16 BE -10 Hb 14 K 3.77 Glucose 111 Lactate 2.49 1554 ABG Data Arterial Blood Gas result: pH 7.306 pCO2 36.6 pO2 102.7 %O2 Sat 96 FiO2 .62 HCO3 17.8 BE -8.5 Hb 15.1 K 4.53 [id number] Lactate 2.9 1611 Quick Note Muscle relaxati on @ surgeon's request 1919 Transport 1948 an stop data Art line tube a ccidentally snapped, art line still in place, put in new tubing, still a good waveform 1948 Recovery or ICU Handoff Krystal ent care was transferred to the destination unit staff after review of the patient's medical history, current anesthetic/surgical status and plan, according to the Provider Handoff Checklist. 1948 Stop ICU bed was not yet ready. Patient hemant to PACU on propofol gtt, full ASA monitors. Stable transport with hand ventilation. Report given to critical care float nurse. VSS Meds Name Total Midazolam 2 mg fentaNYL 100 mcg Propofol 400 mg Rocuronium 110 mg PHENYLephrine 480 mcg Ondansetron 8 mg Dexamethasone 10 mg ampicillin-sulbactam (UNASYN ) 3 g vial attach to sodium chloride 0.9% 100 mL Mini-Bag Plus 7.5 g Esmolol 120 mg meTOPROLOL 11 mg Dexmedetomidine 40 mcg HYDROmorphone 4 mg Propofol INF 340.17 mg lactated Ringers infusion 1,000 mL 1,000 mL Lactated Ringers 2,000 mL Sodium Chloride 0.9% 2,000 mL Sodium Chloride 0.9% 2,000 mL * Agents Name O2 Air Sevoflurane (et) * Blood No blood administrations on file. Lines, Drains, and Airways Type Details Placement Removal Drain/Device Site Right; other (see comments) (nare); other (see comments) (12FR Kangaroo feeding tube); 07/13/17; 211707/13/17 1901 by 07/13/17 2118 by Emma Browne, RN (RETIRED) Peripheral IV Line - Single Lumen 05/24/17; 0836; metacarpal vein (top of hand), right; [id number] catheter system; 20 gauge, 1 in length; [...] Villar RN 07/06/22 1715 by Severino Caputo (RETIRED) Peripheral IV Line - Single Lumen 07/13/17; 0719; metacarpal vein (top of hand), left; 20 gauge; Herlinda Munroe; distraction, intradermal injection; removed inadvertently, catheter/device intact; 07/16/17; 0200 07/13/17 0719 by Herlinda Munroe RN 07/16/17 0200 by Brook Horton RN Urethral Catheter 07/13/17; 0815; Surg daisy longer than 2 hours; Physician order; indwelling catheter with core temperature probe; latex; 14; inserted at this facility; 1; 10; 10; other (see comments) (Patient under General Anesthesia); leg bag to dependent drainage; urethral catheter removed; 07/26/17; 17007/13/17 08 by Pita Banuelos RN 07/26/171701 by Polly Payne ETT Mask Ventilation: Ea sy (1); ETT Type: Cuffed, Nasal, SANTIAGO; ETT Size: 7.5 mm; Mac Blade: 4; Indirect: Video; Notes: Asleep, Pre-O2, Stylette; Attempts: 2; Laryngoscopy Grade: 2; ETT Placement Verified By: Auscultation, Capnometry, Visual; Inserted by: Karla Chavarria CRNA; Removal Date: 07/17/17; Removal Time: 1034 07/13/17 0815 by Karla Chavarria INSPECTOR FLOOR 07/17/17 1034 by Miguelina Puente RT Arterial Line 07/13/17; 0842; radi al artery, right; 20 gauge; Karla Chavarria CRNA; Sterile Prep, Sterile Gloves; catheter not patent, catheter intact; 07/18/17; 201407/13/17 0842 by Karla Chavarria CRNA 07/18/172014 by Arely Iqbal, RN (RETIRED) Peripheral IV Line - Single Lumen 07/13/17; 0850; median vein (underside of arm), left; [id number] catheter system; 18 gauge; Beau; removed inadvertently, catheter/device intact; 07/20/17; 0200 07/13/17 0850 by Karla Chavarria INSPECTOR FLOOR 07/20/17 0200 by Shannon Toribio RN NG/OG [...] neck; collapsible closed device; 07/20/17; 0830 07/13/17 175 by Lizy Villar RN 07/20/17 0830 by Danielle Helton RN documented in this encounter Social History [...] OR Notes * Anesthesia Postprocedure Evaluation - Jane Quezada MD - 07/14/2017 9:11 PM EDT [facility] Department of Anesthesiology Post-procedure Note Patient: Jose Anaya [place] Procedure Summary Date Anesthesia Start Anesthesia Stop Room / Location 07/13/17 0803 1949 [facility] 2 / [facility] Procedure Diagnosis Surgeon Responsible Provider PHARYNGECTOMY, LIMITED (WRVU 19.13) (N/A Throat); LARYNGOSCOPY, MICRO, LASER EXCISION (WRVU 12.14) (N/A ); @GLOSSECTOMY, PARTIAL,WITH UNILATERAL RADICAL NECK DISSECTION (WRVU 30.14) (Right Mouth); MODIFIER LASER,CO2 (N/A ); MODIFIER MEDTRONIC (N/A ) 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) Sriram Contreras MD Welch, Marnie B, MD All Anesthesia Providers: Anesthesiologist: Giovanni Yanez MD; Jane Quezada MD INSPECTOR FLOOR: Karla Chavarria CRNA Last (1hr) Vitals: BP Temp Pulse Resp SpO2 Patient Location: PACU/[facility] Level of Consciousness: Sedated (Pharmacologic/Intentional) Pain Management: Satisfactory Analgesia PONV: None Cardiovascular Status: At Baseline and Hemodynamically Stable Respiratory Status: At Baseline, Room Air and Intubated/Ventilated Postoperative Fluid Status: Intravascular EUvolemia Possible Anesthetic Complications: NONE apparent at time of evaluation Final Primary Anesthesia Type: General (The anesthetic type performed was the same as planned.) Comments: JANE QUEZADA MD Report given to ICU charge and machine cloth trimmer. I took over last hour of case, including transfer to PACU while ICU Bed available. Intubated and sedated for airway protection, last gas still w/ some acidosis, but improved, hyperK and hypoxia Improved. Some atrial and ventricular ectopy during case (history of a fib) responsive to beta blockers, Per report from Dr Yanez. * Anesthesia Preprocedure Evaluation - Jane Quezada MD - 07/13/2017 7:06 AM EDT Pre-Anesthesia Evaluation for: Jose Bee a 66 y.o. male. Procedure(s): Pharyngectomy, partial glossectomy radical neck dissection Patient Active Problem List Diagnosis ??? Head and neck cancer ??? KORI on CPAP ??? Adult BMI 30+ ??? Atrial fibrillation March 2017: noted in ED in . . Previously noted to be paroxysmal. No [...] A. ?relationship to globus sensation first noted 2008: negative exam and MRI B. Progressive R [...] Date ??? ACHILLES TENDON SURGERY Right 1996 [facility] ??? KNEE ARTHROSCOPY [facility] ??? PRO BIOPSY OROPHARYNX N/A 05/24/2017 BIOPSY, OROPHARYNX (WRVU 1.44) performed by Zafar Madera MD at [facility] MAIN OR ??? PRO LARYNGOSCOPY, DIRCT, OP SCOPE, BIOPSY N/A 05/24/2017 LARYNGOSCOPY, MICROSCOPE, WITH BIOPSY (WRVU 3.55) performed by Zafar Madera MD at [facility] MAIN OR ??? QUADRACEPS TENDON REPAIR Right 04/2016 [facility] ??? TONSILLECTOMY Social History Substance Use Topics [...] medications have been reviewed. Physical Exam: Vitals: 07/13/17 0628 BP: 118/63 Pulse: 53 Resp: 20 Temp: 36.8 ??C (98.2 ??F) Body mass index is 36.26 kg/(m^2). Height: (!) 191.8 cm (6' 3.5) Weight - Scale: (!) 133.4 kg (294 lb) Airway Assessment: Mallampati: II TM distance: <3 FB Neck ROM: limited Cardiovascular Assessment: Pulmonary Assessment: Dental Assessment: - normal exam Misc Assessment: IV access: Peripheral line Anesthesia Plan: ASA 3 general, with a(n) intravenous induction 66 y.o. Male with base of tongue mass here for pharyngectomy, radicsl neck Dissection (R), Partial glossectom PMH significant for atrial fibrillation (CHADS2-VASc=1), recent dx of acute PE (March 2017, on apixiban), obesity, KORI on CPAP, BPH. Meds and allergies reviewed. Labs from 03/2017 reviewed. No anesthetic hx noted on chart review. Plan for GA. Standard ASA monitors. Adequate IV access. pamela Anesthesia Staff Addendum: Patient seen and evaluated [...] 1:00 PM EDT Office Visit Hematology/Oncology at [address] [phone] Dmitry Bhatti MD [facility] HEMATOLOGY/[place] [address] Ellen Mcrae APRN [facility] [place] [address] 08/01/2024 1:30 PM EDT Infusion Hematology Oncology at [address] [phone] documented as of this encounter Visit Diagnoses Not on filedocumented in this encounter Administered Medications Inactive Administered Medications - up to 3 most recent administrations Medication Order MAR Action Action Date Dose Rate Site ampicillin-sulbactam (UNASYN) 3 g vial attach to sodium chloride 0.9% 100 mL Mini-Bag Plus 3 g, Intravenous, ONCE, 1 dose, On Wed07/13/17 at 0800, Administer over 30 Minutes, Warning Vesicant/Irritant Medication , Indication for (Active or Suspected): Prophylaxis Bolus 07/13/2017 6:02 PM EDT 1.5 g Bolus 07/13/2017 3:02 PM EDT 1.5 g Bolus 07/13/2017 12:05 PM EDT 1.5 g dexamethasone (DECADRON) injection PRN, Starting on Wed07/13/17 at 0905, Until Wed07/13/17 at 194, Anesthesia Intra-op, Routine Given 07/13/2017 9:05 AM EDT 10 mg dexmedetomidine (PRECEDEX) injection PRN, Starting on Wed07/13/17 at 0925, Until Wed07/13/17 at 194, Anesthesia Intra-op, Routine Given 07/13/2017 5:47 PM EDT 4 mcg Given 07/13/2017 5:40 PM EDT 12 mcg Given 07/13/2017 9:25 AM EDT 12 mcg esmolol (BREVIBLOC) injection PRN, Starting on Wed07/13/17 at 0848, Until Wed07/13/17 at 194, Anesthesia Intra-op, Routine Given 07/13/2017 11:34 AM EDT 30 mg Given 07/13/2017 9:45 AM EDT 30 mg Given 07/13/2017 9:38 AM EDT 30 mg fentaNYL 50 mcg/mL multi-dose injection PRN, Starting on Wed07/13/17 at 0813, Until Wed07/13/17 at 194, Pain, Anesthesia Intra-op, Routine Given 07/13/2017 8:13 AM EDT 100 mcg HYDROmorphone (DILAUDID) injection PRN, Starting on Wed07/13/17 at 0936, Until Wed07/13/17 at 194, Pain, Anesthesia Intra-op, Routine Given 07/13/2017 6:25 PM EDT 1 mg Given 07/13/2017 5:53 PM EDT 1 mg Given 07/13/2017 9:36 AM EDT 1 mg lactated Ringers infusion 1,000 mL 1,000 mL, at 100 mL/hr, Intravenous, CONTINUOUS, Starting on Wed07/13/17 at 0730, Until Wed07/13/17 at 2003, Day of Surgery (Day of Procedure) New Bag 07/13/2017 7:48 AM EDT New Bag 07/13/2017 7:19 AM EDT 1,000 mLs 100 mL/hr lactated Ringers infusion CONTINUOUS PRN, Starting on Wed07/13/17 at 0859, Until Wed07/13/17 at 1949, Anesthesia Intra-op New Bag 07/13/2017 11:30 AM E DT New Bag 07/13/2017 8:59 AM EDT meTOPROLOL (LOPRESSOR) injection PRN, Starting on Wed07/13/17 at 1002, Until Wed07/13/17 at 1949, High Blood Pressure, Anesthesia Intra-op, Routine Given 07/13/2017 4:37 PM EDT 2 mg Given 07/13/2017 11:55 AM EDT 3 mg Given 07/13/2017 11:08 AM EDT 2 mg midazolam (PF) (VERSED) 1 mg/mL multi-dose injection PRN, Starting on Wed07/13/17 at 0759, Until Wed07/13/17 at 1949, Sleep, Anesthesia Intra-op, Routine Given 07/13/2017 7:59 AM EDT 2 mg ondansetron (ZOFRAN) injection PRN, Starting on Wed07/13/17 at 1853, Until Wed07/13/17 at 1949, Nausea, Anesthesia Intra-op, Routine Given 07/13/2017 6:53 PM EDT 8 mg PHENYLephrine HCl in NS (PF) (ALEJANDRO-SYNEPHRINE) 0.8 mg/10 mL (80 mcg/mL) multi-dose injection Syrg PRN, Starting on Wed07/13/17 at 0759, Until Wed07/13/17 at 1949, Anesthesia Intra-op, Routine Given 07/13/2017 7:59 AM EDT 160 mcg Given 07/13/2017 7:57 AM EDT 160 mcg Given 07/13/2017 7:55 AM EDT 160 mcg propofol (DIPRIVAN) 10 mg/mL bolus injection (Anesthesia) PRN, Starting on Wed07/13/17 at 0810, Until Wed07/13/17 at 1949, Anesthesia Intra-op Given 07/13/2017 8:20 AM EDT 100 mg Given 07/13/2017 8:12 AM EDT 100 mg Given 07/13/2017 8:10 AM EDT 200 mg propofol (DIPRIVAN) infusion CONTINUOUS PRN, Starting on Wed07/13/17 at 1915, Until Wed07/13/17 at 1949, Anesthesia Intra-op, Routine New Bag 07/13/2017 7:15 PM EDT 75 mcg/kg/min 60 mL/hr rocuronium (ZEMURON) multi-dose injection PRN, Starting on Wed07/13/17 at 1137, Until Wed07/13/17 at 1949, Anesthesia Intra-op, Routine Given 07/13/2017 4:33 PM EDT 30 mg Given 07/13/2017 4:25 PM EDT 20 mg Given 07/13/2017 4:00 PM EDT 30 mg sodium chloride 0.9% infusion CONTINUOUS PRN, Starting on Wed07/13/17 at 1246, Until Wed07/13/17 at 1949, Anesthesia Intra-op New Bag 07/13/2017 12:46 PM E DT sodium chloride 0.9% infusion CONTINUOUS PRN, Starting on Wed07/13/17 at 1223, Until Wed07/13/17 at 1949, Anesthesia Intra-op New Bag 07/13/2017 2:08 PM ED T New Bag 07/13/2017 12:23 PM EDT documented in this encounter Care Teams Cad Detailer Relationship Specialty Start Date End Date Jovon Sifuentes MD [address] [place] [address] PCP - General 09/30/10 09/10/21 documented as of this encounter
--- OUTSIDE RECORDS SUMMARY | 2024-05-18 11:34 | XMS_ITS | Encounter Summary ---
Author Organization [facility] [place] [address] Care Team Providers Care Telephone Engineer Name Role Phone Jovon Sifuentes MD Primary Care Provider [phone] Reason for Visit * Auth/Cert Specialty Diagnoses [...] Expiration Date Visits Re quested Visits Authorized [id number] 1 1 Encounter Details Date Type Department Care Team (Late st Contact Info) Description 07/13/2017 7:30 AM EDT - 07/13/2017 3:58 PM EDT [facility] [place] [id number] Sriram Contreras MD [facility] [place] [address] PHARYNGECTOMY, LIMITED (WRVU 19.13) Social History Tobacco Use Types Packs/Day Years [...] Sign Reading Time Taken Comments Blood Pressure 118/63 07/13/2017 6:28 AM EDT Pulse 53 07/13/2017 6:28 AM EDT Temperature 36.8 ??C (98.2 ??F) 07/13/2017 6:28 AM ED T Respiratory Rate 20 07/13/2017 6:28 AM EDT Oxygen Saturation 99% 07/13/2017 6:28 AM EDT Inhaled Oxygen Concentration - - [...] staging exam TECHNIQUE: Following IV injection of 68-vxrdcz-9-deoxyglucose (FDG) a standard uptake of approximately 60 [...] Thank you for referring this patient to [facility]. I have personally reviewed the [...] -You can reach the ENT clinic at [phone] for appointment questions. -The ENT triage nurse is available at [phone] -For urgent issues during evenings and weekends the ENT resident patient registration clerk can be reached through [facility] drying machine operator at [phone] Follow Up: You will need to follow [...] Geovanna Deleon MD Hematology and Oncology at [place] [phone] General Instructions None __ Primary Care Doctor: Jovon Sifuentes MD [phone] Signed: Celso Mejía MD 07/29/2017 documented in [...] -You can reach the ENT clinic at [phone] for appointment questions. -The ENT triage nurse is available at [phone] -For urgent issues during evenings and weekends the ENT resident patient registration clerk can be reached through [facility] drying machine operator at [phone] Follow Up: You will need to follow [...] Geovanna Deleon MD Hematology and Oncology at [place] [phone] documented in this encounter Medications at Time [...] att. providers found Jose Laws discharged to [facility] by private car with Spouse. All belongings sent with patient. DONNA removed, incision healing well, no significant drainage, no dehiscence, no significant erythema, skin free from pressure ulcers. Discharge instructions given to . Report called to Vidhi at [facility] @ 0110. * Alexus Soler RN - 07/29/2017 11:38 AM EDT Patient accepts bed at [facility]. Spoke with Patient and in regards to transportation. will provide transportation to [facility]. Adrienne Soler RN Care Management * Lexy Scott - 07/29/2017 10:57 AM EDT Office of Care Management/Aircraft Maintenance Manager Patient Name: Jose Laws : 1950 Patient has been offered a [facility] bed at [facility]. The patient will be transported by private transportation. No MD to MD report necessary Please call Nursing Report to , ask for Vidhi. Info to accompany patient: Narcotic Prescriptions Copies of Medication Administration Records and IV sheets for past 10 days. Plan: Aircraft Maintenance Manager will be available to the patient and Apparel Pattern Maker-RN and/or Social Workerfor further assistance. Patient will be discharged to: [facility] [address] [place] [address] Lexy M Snow, Aircraft Maintenance Manager * Luana Henry RN - 07/29/2017 7:00 AM EDT Patient arrived via bed to rm 514, oob sitting in chair. Aox4, calling . Denies pain. Plan for discharge today pending bed. 1 assist to bathroom. Voids with out difficulty. [place] to floor and call srinivasan system. Would like to take a shower and have his CPAP cleaned. Will report to oncoming RN/CONCEPCION. * Kayley Chris RCP - 07/29/2017 4:40 AM EDT Patient was compliant with home CPAP usage tonight. * Anay Diallo RN - 07/28/2017 3:40 PM EDT Apparel Pattern Maker Follow Up Note Patient plan of care discussed in multidisciplinary rounds. Met with patient and to assess continuing care and discharge needs. Continues to require hospitalization for Head and neck cancer. Discharge plan to snf when medically ready. Apparel Pattern Maker to follow with team and family to assist with discharge needs when patient ready for discharge. Anay Diallo RN Case Management for [facility] pgr [phone] * Celso Mejía MD - [...] Mejía MD, PGY1 07/28/17 7:05 AM Pager: [phone] * Anay Diallo RN - 07/27/2017 2:44 PM EDT Based on discussions with the multi-disciplinary healthcare team, the patient would benefit from skilled level of care at discharge. ?? I have met with the patient/insurance service representative to discuss discharge planning needs. I have provided the [facility], Office of Care Management letter from the [employer] pertaining to rehab referrals. I have also provided a letter describing our affiliations within the [facility] and educated them about their right to choose where referrals are placed. ?? I reviewed the different levels of rehab including SNF, swing, acute and LTAC with the patient/insurance service representative. ?? The patient/insurance service representative has been provided a list of facilities within their preferred geographic area. ?? I have requested that the patient/insurance service representative provide at least three choices for referral. ?? The patient/insurance service representative have requested referrals to: 1. [facility] ?? PHONE: [phone] FAX: [phone].. 2. [facility] [address] [place] [address] ?? 3. [facility] ([facility]) [address] [place] [address] ? Expected date of discharge: TBD Note routed to Aircraft Maintenance Manager who will communicate referrals to facilities and [...] Mejía MD, PGY1 07/27/17 7:01 AM Pager: [phone] * Collette Schultz - 07/26/2017 8:21 PM EDT Zach Encounter Note Patient Name: Jose Laws : [id number] MR#: [id number] Admit Date: 07/13/2017 6:04 AM Hospital Day 13 days Narrative: Attempted return visit - pt sleeping. Time in Direct Care: 0 min. Collette Schultz 07/26/2017 * Collette Schultz - 07/26/2017 3:00 PM EDT Zach Encounter Note Patient Name: Jose Laws : [id number] MR#: [id number] Admit Date: 07/13/2017 6:04 AM Hospital Day 13 days Narrative: Engineer And Geologist visit per Consult Order Assessment: Pt spoke [...] today Time in Direct Care: 15 min. Collette Schultz 07/26/2017 * Anay Diallo RN - 07/26/2017 2:30 PM EDT Apparel Pattern Maker Follow Up Note Patient plan of care discussed in multidisciplinary rounds. Met with patient to assess continuing care and discharge needs. Continues to require hospitalization for Head and neck cancer. Discharge plan uncertain at this time. Apparel Pattern Maker to follow with team and family to assist with discharge needs when patient ready for discharge. Anay Diallo RN Case Management for [facility] pgr [phone] * Briana Goel RN - 07/26/2017 2:29 PM EDT [facility] Interventional Radiology ? Interventional Radiology Nursing and/or [...] patient's provider, ENT Service Dr. Jackie Mejía #[phone] , regarding above. Paged, callback # provided [...] Overview: March 2017: noted in ED in . [...] lb 2.5 oz). Admit Wt: 133.36 kg [place] body weight: 90.4 kg Type of access: [...] vitamins and minerals. Assessment: Estimated Nutrition Needs: 0259-5505 calories (20-25 kcal/kg IBW) 135-160 grams protein (1.5-2.0 g/kg IBW) Patient is out of the ICU and out on the floor. Tube feedings need adjustment as pt is no longer onpropofol. Appears tube feedings are still medically indicated given pt is s/p swallow eval and MOLDED FRAMES ASSEMBLER recommends continuation of dobhoff TF for now. [...] Mejía MD, PGY1 07/26/17 9:01 AM Pager: [phone] * Calista Peralta RT - 07/26/2017 12:27 [...] 7.44 7.41 7.42 PO2ART 67* 60* 78* [id number] 39 37 39 BEART 1.2 -2.0 0.3 [...] 7.44 7.41 7.42 PO2ART 67* 60* 78* QAL9LSH 39 37 39 BEART 1.2 -2.0 0.3 [...] Follow-up ENT with Dr. Ben GREWAL __ IGNACIO Litzy REGAN MD 07/24/17 9:27 AM Associated attestation - Samm Payne MD - 07/25/2017 6:54 AM EDT Otolaryngology Attending Physician Addendum Patient discussed at length and in detail with Dr. Regan. I have reviewed, and agree with, the clinical history, physical examination findings, impression, and plan, as detailed in resident physician's note. Samm Payne MD, FAAP Pediatric Otolaryngology [facility] ([facility]) [facility] * Beena Saini RCP - 07/24/2017 [...] 07/23/2017 3:50 PM EDT Office of Care Management(OCM)/Apparel Pattern Maker(CM) Service: ENT Pt remains intubated at this [...] get appropriate choices after recs are made. Apparel Pattern Maker Roc Valdez RN, BSN Pager #[phone] * Sony Oliva MD - 07/23/2017 11:31 [...] 07/23/2017 No results found for: PHART, PO2ART, WTN9XAQ ASSESSMENT, MANAGEMENT, and DECISION MAKING: potential for [...] LEAST ONE OF THESE DX to USE 70283 ARDS Stupor Hypoxemic Resp Failure (Fi02>50%) Delirium [...] cm at the Teeth. Skin Integrity: WDL JOSE Inhaled Medications: Albuterol Prn Breath Sounds: rhonchi [...] LEAST ONE OF THESE DX to USE 77879 ARDS Stupor Hypoxemic Resp Failure (Fi02>50%) Delirium [...] to reach the patient's provider, Red 1 [phone], regarding above. Monitor weight. Jose Laws is a 66 y.o. male Principal Problem: Head and neck cancer Active Problems: Pulmonary embolism Overview: Recurrent. Atrial fibrillation Overview: March 2017: noted in ED in [facility]. Previously noted to be [...] LEAST ONE OF THESE DX to USE 66787 ARDS Stupor Hypoxemic Resp Failure (Fi02>50%) Delirium [...] NECK SURGERY DAILY PROGRESS NOTE Name: Jose Lasw Age/Sex: 66 y.o. male Attending: Sriram Contreras [...] PGY2 07/20/17 7:21 AM * Kaiden Gorman, [facility] - 07/20/2017 4:35 AM EDT AMV Protocol: [...] LEAST ONE OF THESE DX to USE 17794 ARDS Stupor Hypoxemic Resp Failure (Fi02>50%) Delirium [...] this interval not displayed. CBC Recent Labs 07/18/1721907/17/17 0030 07/16/17 0400 07/15/17 0415 07/14/17 0036 [...] plan. Lakeshia Mckeon MD * Jeannie Jewell, [facility] - 07/17/2017 7:24 PM EDT 07/17/17 192 Oxygen Therapy Patient Type Adult O2 Device [...] Jr, MD, PGY2 07/17/17 8:21 PM Pager: [phone] (For daytime 6AM - 6PM) Please contact on-call night ENT r d intern for issues between 6PM - 6AM [...] the need arise fora surgical airway. - [facility] vent protocol - HOB 30 degrees [...] kg (294 lb). Admit Weight: 133.36 kg [place] Body Weight: 90.3 kg I/O last 1 [...] service. Nutrition to follow. * Lillian Pardo, MOLDED FRAMES ASSEMBLER - 07/16/2017 1:48 PM EDT Speech-Language Pathology Initial Consult ?? Order received and acknowledged. Records reviewed and pt and RN contacted. Pt remains intubated at this time. Assessment deferred at this time. Please re- consult after pt successfully extubated. ?? Lillian Pardo MA CCC-MOLDED FRAMES ASSEMBLER Inpatient Rehabilitation Medicine pager:# [phone] * Salazar Bhagat MD - 07/16/2017 11:57 [...] need arise for a surgical airway. - [facility] vent protocol - HOB 30 degrees [...] 3 Days Post-Op Patient ID/Reason for Admission Jsoe Laws is a 66 y.o. male presented [...] Martino MD, PGY1 07/16/17 9:12 AM Pager: [phone] (For daytime 6AM - 6PM) Please contact on-call night ENT r d intern for issues between 6PM - 6AM * Supa Sharif, [facility] - 07/15/2017 8:15 PM EDT AMV Protocol: [...] need arise for a surgical airway. - [facility] vent protocol - Dexamethasone x3 doses [...] Martino MD, PGY1 07/15/17 7:06 AM Pager: [phone] (For daytime 6AM - 6PM) Please contact on-call night ENT r d intern for issues between 6PM - 6AM * Supa Sharif, [facility] - 07/14/2017 9:40 PM EDT AMV Protocol: [...] with 7.[address], 6cm above shleli. R nare with DHT bridled in place. [...] ?? Pulm: nasally intubated, difficult airway - [facility] vent protocol - Dexamethasone x3 doses [...] MD 07/14/2017 6:47 PM * Adam Montana, [facility] - 07/14/2017 2:03 PM EDT AMV Protocol: [...] Martino MD, PGY1 07/14/17 9:38 AM Pager: [phone] (For daytime 6AM - 6PM) Please contact on-call night ENT r d intern for issues between 6PM - 6AM [...] of this encounter: 133.4 kg (294 lb). [place] Body Weight: 90.3 kg I/O last 1 [...] service. Nutrition to follow. * Cecilia Doll, RESTORATIVE AIDE - 07/14/2017 5:36 AM EDT Mechanical Ventilation Note Vent Settings: Pressure Support 5 PEEP 5 FIO2 0.4 ETT: Left Nare placed at: 28 cm at the nare Changes made this shift: transitioned to pressure support 5 PEEP 5 FIO2 0.4 SBT Protocol: Yes Pass SBT: Yes AMV Protocol: Yes Assessment: ETT secured via suture. Of note, the facilities flight check pilot balloon line is wrapped up in [...] Date ??? ACHILLES TENDON SURGERY Right 1996 [facility] ??? KNEE ARTHROSCOPY [facility] ??? PRO BIOPSY OROPHARYNX N/A 05/24/2017 BIOPSY, OROPHARYNX (WRVU 1.44) performed by Zafar Madera MD at [facility] OR ??? PRO LARYNGOSCOPY, DIRCT, OP SCOPE, BIOPSY N/A 05/24/2017 LARYNGOSCOPY, MICROSCOPE, WITH BIOPSY (WRVU 3.55) performed by Zafar Madera MD at [facility] OR ??? QUADRACEPS TENDON REPAIR Right 04/2016 [facility] ??? TONSILLECTOMY Allergies: Allergies Allergen Reactions [...] education: 17 Occupational History ??? 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 He is to Briana for 40 yrs. 4 children - All live in different states - [place] Enjoys raising Beef Cattle and doing Civil War and Living History and shoot Black powder/Antique firearms. He enjoys builiding Firearms/Blacksmithing - [place]coal, [place], etc. Review of Systems: Not obtained due [...] - currently stable Pulm: nasally intubated - [facility] vent protocol GI: DHT - Diet: [...] 07/13/2017 7:37 AM EDT Patient Name: Jose Laws Patient Age: [...] this case performed under IRB Protocol Study [id number] (Improving throat cancer surgical outcomes through intra-operative [...] to the planned procedure. Hand Hygiene: The plans examiner did perform hand hygiene prior to arterial [...] hypoxic respiratory failure Location of Procedure: ICU [facility]. Risks and Benefits: The risks and benefits [...] * Plan of Care - Sriram Thompson SLP - 07/29/2017 9:56 AM EDT Problem: Patient [...] RECOMMENDATIONS: ?? Continue dysphagia soft diet and [place]-thick liquids. ?? Upright to feed. ?? Small bites/sips. ?? Medications crushed in applesauce. Sriram Thompson MS [facility]-MOLDED FRAMES ASSEMBLER Speech-Language Pathologist Rehabilitation Medicine Pager - [phone] Problem: Acute Rehab Services Goal & Intervention [...] Anticipated Discharge Disposition: inpatient rehabilitation facility Pager: [phone] OTONIEL JOSHUA OT 07/28/2017 Occupational Therapy Rehabilitation [...] * Plan of Care - Sriram Thompson, MOLDED FRAMES ASSEMBLER - 07/28/2017 2:18 PM EDT Problem: Patient [...] documentation. RECOMMENDATIONS: ?? Dysphagia soft diet and [place]-thick liquids. ?? Upright to feed. ?? Small bites / sips. ?? Crush medications in applesauce when possible. Sriram Thompson MS [facility]-MOLDED FRAMES ASSEMBLER Speech-Language Pathologist Rehabilitation Medicine Pager - [phone] Problem: Acute Rehab Services Goal & Intervention [...] PO intake. Awaiting plan for D/C to care home facility. INDIVIDUALIZED FALL PREVENTION INTERVENTIONS: Patient-specific fall [...] Anticipated Discharge Disposition: inpatient rehabilitation facility Pager: [phone] CRISTIAN NELSON, PT 07/27/2017 Physical Therapy Rehabilitation [...] sit/sit to supine -- Bed Mobility Goal, [place] Level independent -- Bed Mobility Goal, Outcome Achieved -- goal ongoing Goal: Gait Training Goal Stand Alone Therapy Goal Outcome: Ongoing (Interventions Implemented as Appropriate) 07/26/17 1329 07/27/17 1230 Gait Training Goal Gait Training Goal, Date Established 07/26/17 -- Gait Training Goal, Time to Achieve 30 days -- Gait Training Goal, [place] Level supervision required -- Gait Training Goal, [...] days -- Transfer Training Goal, Activity Type cdl-kh-xmczr/zkgdh-rf-ony;vvr-eg-jyruq/lqqgy-zj-hya -- Transfer Train Goal, [place] Level supervision required -- Transfer Training Goal, Assist Device walker, rolling -- Transfer Training Goal, Outcome -- goal ongoing * Plan of Care - Sriram Thompson, MOLDED FRAMES ASSEMBLER - 07/27/2017 10:59 AM EDT Problem: Patient [...] Crush medications in applesauce. Sriram Thompson MS [facility]-MOLDED FRAMES ASSEMBLER Speech-Language Pathologist Rehabilitation Medicine Pager - [phone] Problem: Acute Rehab Services Goal & Intervention [...] Outcome: Ongoing (Interventions Implemented as Appropriate) 07/26/17 7512 Coping/Psychosocial Plan Of Care Reviewed With patient [...] PLAN MOVING FORWARD: -PEG tube. -IV abx -MOLDED FRAMES ASSEMBLER consult. -hep gtt. INDIVIDUALIZED FALL PREVENTION INTERVENTIONS: [...] (Interventions Implemented as Appropriate) 07/23/178 07/26/17 1826 Skin Integrity Impairment, Risk/Actual Skin Integrity [...] Ongoing (Interventions Implemented as Appropriate) 07/26/17 1541 07/26/17 182 Coping/Psychosocial Plan Of Care Reviewed With patient [...] Pt appeared anxious and frustrated this morning. Engineer And Geologist consulted and talked with patient today. During a transfer to the [facility] it was determinedthat tube feeding was leaking [...] Ongoing (Interventions Implemented as Appropriate) 07/26/17 1826 Individualization Patient Specific Goals To get out [...] Anticipated Discharge Disposition: inpatient rehabilitation facility Pager: [phone] OTONIEL JOSHUA OT 07/26/2017 Occupational Therapy Rehabilitation [...] Anticipated Discharge Disposition: inpatient rehabilitation facility Pager: [phone] CRISTIAN NELSON, DANY 07/26/2017 Physical Therapy Rehabilitation Department 2017 PT [...] to sit/sit to supine Bed Mobility Goal, [place] Level independent Goal: Gait Training Goal Stand Alone Therapy Goal Outcome: Ongoing (Interventions Implemented as Appropriate) 07/26/17 1329 Gait Training Goal Gait Training Goal, Date Established 07/26/17 Gait Training Goal, Time to Achieve 30 days Gait Training Goal, [place] Level supervision required Gait Training Goal, Assist [...] 30 days Transfer Training Goal, Activity Type mro-jy-ukyrj/hqppz-ri-kvc;lqc-su-fghny/rcbhe-sq-ihr Transfer Train Goal, [place] Level supervision required Transfer Training Goal, Assist Device walker, rolling * Consult Note - Deanna Menjivar MD - 07/26/2017 11:08 AM EDT INITIAL HEME/ ONC CONSULT DATE OF CONSULT 07/26/2017 PATIENT Jose Laws 1950 REFERRING PHYSICIAN PAYDARFAR, SRIRAM A CONSULTATION QUESTION Recommendations for anticoagulation leaving the hospital HISTORY PRESENT ILLNESS This patient is a 66 y.o. male with a relevant past medical history significant for oropharyngeal cancer, malignancy associated VTE and Afib (CHADS-VASc of 1) who presented to [facility] for radical neck dissection on 07/13/17. We [...] Date ??? ACHILLES TENDON SURGERY Right 1996 [facility] ??? KNEE ARTHROSCOPY [facility] ??? PRO BIOPSY OROPHARYNX N/A 05/24/2017 BIOPSY, OROPHARYNX (WRVU 1.44) performed by Zafar Madera MD at [facility] OR ??? PRO LARYNGOSCOPY, DIRCT, OP SCOPE, BIOPSY N/A 05/24/2017 LARYNGOSCOPY, MICROSCOPE, WITH BIOPSY (WRVU 3.55) performed by Zafar Madera MD at [facility] ??? PRO LARYNGOSCOPY, DIRECT, DX, OP MICROSCOP N/A 07/16/2017 LARYNGOSCOPY, WITH MICROSCOPE (WRVU 2.57) performed by Sriram Contreras MD at [facility] OR ??? PRO PART EXC TONGUE, UNILAT RAD NECK Right 07/13/2017 @GLOSSECTOMY, PARTIAL,WITH UNILATERAL RADICAL NECK DISSECTION (WRVU 30.14) performed by Sriram Contreras MD at [facility] ??? PRO PARTIAL REMOVAL OF PHARYNX N/A 07/13/2017 PHARYNGECTOMY, LIMITED (WRVU 19.13) performed by Sriram Contreras MD at [facility] ??? PRO UNLISTED PROCEDURE LARYNX N/A 07/13/2017 LARYNGOSCOPY, MICRO, LASER EXCISION (WRVU 12.14) performed by Sriram Contreras MD at [facility] ??? QUADRACEPS TENDON REPAIR Right 04/2016 [facility] ??? TONSILLECTOMY FAMILY HISTORY No family history on file. No family history of VTE SOCIAL HISTORY Social History Social History ??? Marital status: Spouse name: Briana ??? Number of children: 4 ??? 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 4 children - All live in different states - [place] Enjoys raising Beef Cattle and doing Civil War and Living History and shoot Black powder/Antique firearms. He enjoys builiding Firearms/Blacksmithing - Charcoal, [place], etc. PHYSICAL EXAMINATION Most Recent Vitals: 07/26/17 [...] and thrombosis clinic Felice Harvey MD Pager [phone] Heme-Onc Fellow ?? HEMATOLOGY STAFF ADDENDUM I [...] Deanna Menjivar MD Hematology Staff physician, Pager: [phone] 07/26/17 * Plan of Care - Sriram Thompson, MOLDED FRAMES ASSEMBLER - 07/26/2017 9:33 AM EDT Problem: Patient [...] degrees at all times. Sriram Thompson MS [facility]-MOLDED FRAMES ASSEMBLER Speech-Language Pathologist Rehabilitation Medicine Pager - [phone] Problem: Acute Rehab Services Goal & Intervention [...] Handling Outcome: Ongoing (Interventions Implemented as Appropriate) 07/26/17835 Restraint Interventions Safety Promotion/Fall Prevention fall prevention [...] Laws was transferred from the ICU to [facility] at approximately 1430 on 07/25/17. At [...] per order. PLAN MOVING FORWARD: Transfer to [facility] INDIVIDUALIZED FALL PREVENTION INTERVENTIONS: Patient-specific fall risk [...] Met: 07/25/17 07/25/17 05 Confusion, Acute (Adult) Cognitive/Functional Impairments Minimized achieves outcome Goal: Safety Patient will demonstrate the desired outcomes by discharge/transition of care. Outcome: Outcome (s) achieved Date Met: 07/25/17 07/25/17 0517 Confusion, Acute (Adult) Safety achieves outcome * Plan of Care - Arely Sahw RN - 07/24/2017 6:47 PM EDT Problem: [...] am. PLAN MOVING FORWARD: Extubate, transfer to [facility] when able INDIVIDUALIZED FALL PREVENTION INTERVENTIONS: Patient-specific [...] Overview Goal: Plan of Care Review 07/23/17 2661 Coping/Psychosocial Plan Of Care Reviewed With patient [...] Outcome: Ongoing (Interventions Implemented as Appropriate) 07/15/17 2314 Skin Integrity Impairment, Risk/Actual Skin Integrity Impairment, [...] MOVING FORWARD: Extubate this am, transfer to [facility] when able INDIVIDUALIZED FALL PREVENTION INTERVENTIONS: Patient-specific [...] RN or CONCEPCION Surveillance [continuous indirect monitoring]: [place] ICU monitor Patient-specific fall prevention interventions for [...] Contreras MD - 07/16/2017 12:27 PM EDT [facility] Operative Note Patient Name: Jose Laws : [id number] MR#: [id number] Case Date: 07/16/2017 Surgeon: Surgeon(s) and Role: [...] monitoring required during toileting and ADLs]: RN, WHEAT FARMER and RT Surveillance [continuous indirect monitoring]: Monitor Patient-specific fall prevention interventions for sensory deficits provided, if applicable: [X] Yes CPG GOAL OUTCOME EVALUATION: Goal: Skin Integrity/Wound Healing Patient will demonstrate the desired outcomes by discharge/transition of care. Outcome: Ongoing (Interventions Implemented as Appropriate) 07/15/17 1844 Skin Integrity Impairment, Risk/Actual (Adult) Skin Integrity/Wound [...] Ongoing (Interventions Implemented as Appropriate) 07/15/17 184 Pain, Acute (Adult) Acceptable Pain Control/Comfort Level making progress toward outcome * Op Note - Sriram Contreras MD - 07/15/2017 4:58 PM EDT [facility] Operative Note Patient Name: Jose Laws : [id number] MR#: [id number] Case Date: 07/13/2017 Surgeon: Surgeon(s) and Role: * Sriram Contreras MD - Primary * Selvin Kaye MD - Resident-Windows Application Administrator * Hilton Cheney PA - Physician Monotypist Preoperative diagnosis: Right tongue base cancer Postoperative [...] Vicryl suture. Once this was completed, two 15-Tamazight Robin drains were placed in the neck, [...] Laws would be surrogate decision maker per [place] surrogate decision making law. Any patient receiving care at [facility] must abide by [place] law. The hierarchy for surrogate decision making [...] (i) The agent with financial power of manager forms or a conservator appointed in accordance with [...] Insurance: MEDICARE A & B Secondary Insurance: [facility] Prescription Coverage: yes. Preferred Pharmacy: [facility] in [place], [place]. Other: none. Primary Care Provider: Jovon Sifuentes MD [phone] Patient/Caregiver Goals of Treatment: plan being determined at this time. Likely home health at [place]. Potential Needs for Transition of Care: Rehab/SNF: tbd. Home Health: tbd. DME: none previously required. Dialysis: N/A Community Resources: none. Transportation: spouse will provide. Other: none. Anticipated Barriers to Discharge/Special Considerations: no barriers identified at this time. Plan: a member of the Care Management team will continue to monitor progress, follow for continuityof care and assist with transition of care planning. Apparel Pattern Maker Roc Valdez RN, BSN Pager #[phone] documented in this encounter Plan of Treatment Upcoming Encounters Date Type Department Care Team (Late st Contact Info) Description 08/01/2024 1:00 PM EDT Office Visit Hematology/Oncology at [address] [phone] Dmitry Bhatti MD [facility] DR HEMATOLOGY/[place] [address] Ellen Mcrae APRN [facility] [place] [address] 08/01/2024 1:30 PM EDT Infusion Hematology Oncology at [address] [phone] documented as of this encounter Procedures Procedure Name Priority Date/Time Associated Diagnosis Comments MATH AND SCIENCE DIVISION CHAIR SCAN 07/30/2017 12:00 AM EDT HEMOGRAM Routine [...] Routine 07/17/2017 10:34 AM EDT CARDIAC ENZYMES ([facility]) STAT 07/17/2017 5:42 AM EDT HEMOGRAM Routine 07/17/2017 12:30 AM EDT DIFFERENTIAL, AUTOMATED Routine 07/17/2017 12:30 AM EDT CARDIAC ENZYMES ([facility]) STAT 07/17/2017 12:30 AM EDT CBC (WITH DIFF) Routine 07/17/2017 12:30 AM EDT BASIC METABOLIC PANEL (NON-FASTING) Routine 07/17/2017 12:30 AM EDT ENDOTRACHEAL TUBE POSITION CHANGE STAT 07/16/2017 5:51 PM EDT XR CHEST ONE VIEW STAT 07/16/2017 5:2 4 PM EDT CARDIAC ENZYMES ([facility]) STAT 07/16/2017 5:10 PM EDT EKG 12-LEAD STAT 07/16/2017 4:46 PM EDT Persistent atrial fibrillation LARYNGOSCOPY, WITH MICROSCOPE Routine 07/16/2017 12:26 PM EDT HEMOGRAM Routine 07/16/2017 4:00 AM EDT DIFFERENTIAL, [...] EDT TYPE AND SCREEN, SDP (FUTURE SURGERY, [facility] SAME DAY PROGRAM ONLY) STAT 07/13/2017 6:27 AM EDT ABO/RH TYPING STAT 07/13/2017 6:27 AM EDT ANTIBODY SCREEN STAT 07/13/2017 6:27 AM EDT documented in this encounter Results * SCAN DOC: MATH AND SCIENCE DIVISION CHAIR (07/30/2017 12:00 AM EDT) Anatomical Region Laterality Modality Other Narrative 07/30/2017 12:00 AM EDT Ordered by an unspecified provider. Scanning Provider MEDIA MGR SCAN EXT O RDR/RSLT * (ABNORMAL) Differential, Automated (07/29/2017 3:41 AM EDT) Neutrophils % 59.9 % [facility] Neutr Abs (ANC) 4.48 1.70 - 6.10 x10(3)/mc L [facility] Lymphocytes % 26.0 % [facility] Lymphocytes Abs 2.0 0.9 - 3.2 x10(3)/mc L [facility] Monocytes % 10.0 % [facility] Monocyte Abs 0.8 0.3 - 0.9 x10(3)/[facility] Eosinophils % 2.1 % [facility] Eosinophils Abs 0.2 0.0 - 0.4 x10(3)/[facility] Basophils % 0.7 % [facility] Basophils Abs 0.0 0.0 - 0.1 x10(3)/[facility] Immature Gran % 1.30 % [facility] Comment: Immature granulocytes(IG's)percentage and absolute count will include metamyelocytes, myelocytes, and promyelocytes. Blood smears from CBCs yielding IG's will be scanned manually for concordance. If this scan disagrees with the automated IG or if promyelocytes are noted, a manual differential will be performed. Patti Gran Abs 0.10(H) 0.00 - 0.04 x10(3)/[facility] Blood specimen (specimen) 07/29/2017 3:41 AM EDT 07/29/2017 3:58 AM EDT Narrative Resulting Agency Comment Spec In Lab Sriram Contreras MD HEMATOLOGY ORDERAB LES Performing Organization Address City/State/[facility] Co de Phone Number [facility] [place] [address] * (ABNORMAL) Hemogram (07/29/2017 3:41 AM EDT) WBC 7.5 4.0 - 9.5 x10(3)/[facility] RBC 4.14(L) 4.58 - 5.54 x10(6)/[facility] Hemoglobin 12.7(L) 13.7 - 16.5 gm/dL [facility] Hematocrit 38.1(L) 40.5 - 48.5 % [facility] MCV 92.0 82.9 - 93.1 fL [facility] MCH 30.7 27.5 - 32.1 pg [facility] MCHC 33.3 32.0 - 35.7 gm/dL [facility] Platelets 281 145 - 357 x10(3)/[facility] RDWSD 46.4(H) 36.0 - 45.0 fL [facility] RDWCV 13.9(H) 11.4 - 13.8 % [facility] MPV 9.9 7.6 - 12.9 fL [facility] nRBC % Auto 0.0 % [facility] nRBC Abs Auto 0.000 0.000 - 0.000 x10(3)/[facility] Blood specimen (specimen) 07/29/2017 3:41 AM EDT 07/29/2017 3:58 AM EDT Narrative Resulting Agency Comment Spec In Lab Sriram Contreras MD HEMATOLOGY ORDERAB LES [facility] [place] [address] * Basic Metabolic Panel (non-fasting) (07/29/2017 3:41 AM EDT) Glucose Lvl 95 65 - 199 mg/dL [facility] Comment:Diabetes: >=200 mg/d L plus symptoms BUN 16 10 - 20 mg/dL [facility] Creatinine 0.95 0.80 - 1.50 mg/dL [facility] Comment: Please note that the pediatric reference intervals supplied above were not validated at [facility]. Results from pediatric patients should be interpreted in conjunction to the patient's age, height and muscle mass. Sodium 139 135 - 145 mmol/L [facility] Potassium 3.9 3.5 - 5.0 mmol/L [facility] Comment: Please note: ??Patients with WBC >100,000 may have falsely elevated Potassium levels. ??For accurate Potassium quantification in these patients send serum separator tube (gold top) for subsequent determinations. ??Contact the Clinical Chemistry Laboratory if there are any questions. Chloride 102 98 - 107 mmol/L [facility] CO2 24 22 - 31 mmol/L [facility] Anion Gap 13 5 - 15 mmol/L [facility] Calcium 8.9 8.5 - 10.5 mg/dL [facility] Estimated GFR >60 >=60 [place] [...] the following links into your internet browser. [email or web address] Blood specimen (specimen) 07/29/2017 3:41 AM EDT 07/29/2017 3:58 AM EDT Narrative Resulting Agency Comment Spec In Lab Sriram Contreras MD CHEMISTRY ORDERABL ES Performing Organization Address [facility] Co de Phone Number [facility] [place] [address] * POCT Glucose (07/28/2017 11:53 AM EDT) POC Glucose 107 65 - 199 mg/dL [facility] Comment: Supplemental ranges: <140 mg/dL before meals <180 mg/dL all other times of the day Blood specimen (specimen) 07/28/2017 11:53 AM EDT 07/28/2017 11:53 AM EDT Sriram Contreras MD POINT OF CARE TEST ORDERABLES Performing Organization Address City/[facility] Co de Phone Number [facility] [place] [address] * POCT Glucose (07/28/2017 7:52 AM EDT) POC Glucose 97 65 - 199 mg/dL [facility] Comment: Supplemental ranges: <140 mg/dL before meals <180 mg/dL all other times of the day Blood specimen (specimen) 07/28/2017 7:52 AM EDT 07/28/2017 7:52 AM EDT Sriram Contreras MD POINT OF CARE TEST ORDERABLES Performing Organization Address [facility] Co de Phone Number [facility] [place] [address] * POCT Glucose (07/28/2017 4:27 AM EDT) POC Glucose 98 65 - 199 mg/dL [facility] Comment: Supplemental ranges: <140 mg/dL before meals <180 mg/dL all other times of the day Blood specimen (specimen) 07/28/2017 4:27 AM EDT 07/28/2017 4:27 AM EDT Sriram Contreras MD POINT OF CARE TEST ORDERABLES Performing Organization Address [facility] de Phone Number [facility] [place] [address] * Phosphorus (07/28/2017 3:47 AM EDT) Phosphorus 3.7 2.5 - 4.5 mg/dL [facility] Blood specimen (specimen) 07/28/2017 3:47 AM EDT 07/28/2017 6:16 AM EDT Narrative Resulting Agency Comment Spec In Lab Sriram Contreras MD CHEMISTRY ORDERABL ES Performing Organization Address [facility] de Phone Number [facility] [place] [address] * Magnesium (07/28/2017 3:47 AM EDT) Magnesium 0.86 0.69 - 1.07 mmol/L [facility] Blood specimen (specimen) 07/28/2017 3:47 AM EDT 07/28/2017 6:16 AM EDT Narrative Resulting Agency Comment Spec In Lab Sriram Contreras MD CHEMISTRY ORDERABL ES [facility] [place] [place] [address] * (ABNORMAL) Differential, Automated (07/28/2017 3:47 AM EDT) Neutrophils % 62.2 % [facility] Neutr Abs (ANC) 4.94 1.70 - 6.10 x10(3)/ L [facility] Lymphocytes % 22.1 % [facility] Lymphocytes Abs 1.8 0.9 - 3.2 x10(3)/[facility] Monocytes % 10.6 % [facility] Monocyte Abs 0.8 0.3 - 0.9 x10(3)/[facility] Eosinophils % 2.1 % [facility] Eosinophils Abs 0.2 0.0 - 0.4 x10(3)/[facility] Basophils % 1.1 % [facility] Basophils Abs 0.1 0.0 - 0.1 x10(3)/[facility] Immature Gran % 1.90 % [facility] Comment: Immature granulocytes(IG's)percentage and absolute count will include metamyelocytes, myelocytes, and promyelocytes. Blood smears from CBCs yielding IG's will be scanned manually for concordance. If this scan disagrees with the automated IG or if promyelocytes are noted, a manual differential will be performed. Patti Gran Abs 0.15(H) 0.00 - 0.04 x10(3)/ L [facility] Blood specimen (specimen) 07/28/2017 3:47 AM EDT 07/28/2017 3:58 AM EDT Narrative Resulting Agency Comment Spec In Lab Sriram Contreras MD HEMATOLOGY ORDERAB LES Performing Organization Address City/[facility]/ZIP Co de Phone Number [facility] [place] [address] * (ABNORMAL) Hemogram (07/28/2017 3:47 AM EDT) WBC 8.0 4.0 - 9.5 x10(3)/[facility] RBC 4.43(L) 4.58 - 5.54 x10(6)/[facility] Hemoglobin 13.4(L) 13.7 - 16.5 gm/dL [facility] Hematocrit 40.3(L) 40.5 - 48.5 % [facility] MCV 91.0 82.9 - 93.1 fL [facility] MCH 30.2 27.5 - 32.1 pg [facility] MCHC 33.3 32.0 - 35.7 gm/dL [facility] Platelets 271 145 - 357 x10(3)/[facility] RDWSD 45.5(H) 36.0 - 45.0 [facility] RDWCV 13.8 11.4 - 13.8 % [facility] MPV 9.9 7.6 - 12.9 [facility] nRBC % Auto 0.0 % [facility] nRBC Abs Auto 0.000 0.000 - 0.000 x10(3)/[facility] Blood specimen (specimen) 07/28/2017 3:47 AM EDT 07/28/2017 3:58 AM EDT Narrative Resulting Agency Comment Spec In Lab Sriram Contreras MD HEMATOLOGY ORDERAB LES Performing Organization Address City/[facility]/ZIP Co de Phone Number [facility] [place] [address] * Basic Metabolic Panel (non-fasting) (07/28/2017 3:47 AM EDT) Glucose Lvl 110 65 - 199 mg/dL [facility] Comment:Diabetes: >=200 mg/d L plus symptoms BUN 19 10 - 20 mg/dL [facility] Creatinine 0.96 0.80 - 1.50 mg/dL [facility] Comment: Please note that the pediatric reference intervals supplied above were not validated at [facility]. Results from pediatric patients should be interpreted in conjunction to the patient's age, height and muscle mass. Sodium 140 135 - 145 mmol/L [facility] Potassium 3.6 3.5 - 5.0 mmol/L [facility] Comment: Please note: ??Patients with WBC >100,000 may have falsely elevated Potassium levels. ??For accurate Potassium quantification in these patients send serum separator tube (gold top) for subsequent determinations. ??Contact the Clinical Chemistry Laboratory if there are any questions. Chloride 101 98 - 107 mmol/L [facility] CO2 24 22 - 31 mmol/L [facility] Anion Gap 15 5 - 15 mmol/L [facility] Calcium 8.9 8.5 - 10.5 mg/dL [facility] Estimated GFR >60 >=60 [place] [...] the following links into your internet browser. [email or web address] Blood specimen (specimen) 07/28/2017 3:47 AM EDT 07/28/2017 3:58 AM EDT Narrative Resulting Agency Comment Spec In Lab Sriram Contreras MD CHEMISTRY ORDERABL ES [facility] [place] [address] * POCT Glucose (07/27/2017 11:52 PM EDT) [facility] POC Glucose 94 65 - 199 mg/dL [facility] Comment: Supplemental ranges: <140 mg/dL before meals <180 mg/dL all other times of the day Blood specimen (specimen) 07/27/2017 11:52 PM EDT 07/27/2017 11:52 PM EDT Sriram Contreras MD POINT OF CARE TEST ORDERABLES Performing Organization Address [facility] de Phone Number [facility] [place] [address] * Heparin, low molecular weight assay (07/27/2017 8:19 PM EDT) [facility] Heparin [id number] 0.67 IU/mL [facility] Comment: Guidelines for therapeutic unfractionated [...] ORDERAB LES Performing Organization Address [facility] Co de Phone Number [facility] [place] [address] * POCT Glucose (07/27/2017 7:35 PM EDT) POC Glucose 118 65 - 199 mg/dL [facility] Comment: Supplemental ranges: <140 mg/dL before meals <180 mg/dL all other times of the day Blood specimen (specimen) 07/27/2017 7:35 PM EDT 07/27/2017 7:35 PM EDT Sriram Contreras MD POINT OF CARE TEST ORDERABLES Performing Organization Address [facility] Co de Phone Number [facility] [place] [address] * POCT Glucose (07/27/2017 3:28 PM EDT) POC Glucose 104 65 - 199 mg/dL [facility] Comment: Supplemental ranges: <140 mg/dL before meals <180 mg/dL all other times of the day Blood specimen (specimen) 07/27/2017 3:28 PM EDT 07/27/2017 3:28 PM EDT Sriram Contreras MD POINT OF CARE TEST ORDERABLES Performing Organization Address [facility] Co de Phone Number [facility] [place] [address] * POCT Glucose (07/27/2017 11:06 AM EDT) POC Glucose 147 65 - 199 mg/dL [facility] Comment: Supplemental ranges: <140 mg/dL before meals <180 mg/dL all other times of the day Blood specimen (specimen) 07/27/2017 11:06 AM EDT 07/27/2017 11:06 AM EDT Sriram Contreras MD POINT OF CARE TEST ORDERABLES Performing Organization Address [facility] Co de Phone Number [facility] [place] [address] * POCT Glucose (07/27/2017 7:25 AM EDT) POC Glucose 105 65 - 199 mg/dL [facility] Comment: Supplemental ranges: <140 mg/dL before meals <180 mg/dL all other times of the day Blood specimen (specimen) 07/27/2017 7:25 AM EDT 07/27/2017 7:25 AM EDT Sriram Contreras MD POINT OF CARE TEST ORDERABLES Performing Organization Address City/[facility] Co de Phone Number [facility] [place] [address] * Duplex Study for DVT, Bilat legs (07/27/2017 6:59 AM EDT) VB Text Report Department: Vascular Surgery Lab Patient: [id number] (JOSE LAWS) CPT: 59839 ICD10: I26.99 Referring Physician: SRIRAM CONTRERAS ?? [...] MD VASCULAR ORDERABLE S Performing Organization Address City/[facility] Co de Phone Number [facility] * POCT Glucose (07/27/2017 3:52 AM EDT) POC Glucose 106 65 - 199 mg/dL [facility] Comment: Supplemental ranges: <140 mg/dL before meals <180 mg/dL all other times of the day Blood specimen (specimen) 07/27/2017 3:52 AM EDT 07/27/2017 3:52 AM EDT Sriram Contreras MD POINT OF CARE TEST ORDERABLES Performing Organization Address [facility] Co de Phone Number [facility] [place] [address] * (ABNORMAL) APTT (07/27/2017 2:45 AM EDT) PTT 92(H) 25 - 35 sec [facility] Comment: The recommended therapeutic range for full dose, unfractionated heparin at [facility] is 80 ? 114 seconds. The use of the anti-Xa (heparin) level rather than the PTT is recommended for monitoring anticoagulation intensity in critically ill patients receiving unfractionated heparin by continuous IV infusion. Blood specimen (specimen) 07/27/2017 2:45 AM EDT 07/27/2017 2:55 AM EDT Narrative Resulting Agency Comment Spec In Lab Sriram Contreras MD HEMATOLOGY ORDERAB LES [facility] [place] [place] [address] * (ABNORMAL) Differential, Automated (07/27/2017 2:45 AM EDT) Neutrophils % 67.8 % [facility] Neutr Abs (ANC) 8.40(H) 1.70 - 6.10 x10(3)/mc L [facility] Lymphocytes % 17.4 % [facility] Lymphocytes Abs 2.2 0.9 - 3.2 x10(3)/mc L [facility] Monocytes % 9.5 % [facility] Monocyte Abs 1.2(H) 0.3 - 0.9 x10(3)/mc L [facility] Eosinophils % 1.4 % [facility] Eosinophils Abs 0.2 0.0 - 0.4 x10(3)/mc L [facility] Basophils % 0.9 % [facility] Basophils Abs 0.1 0.0 - 0.1 x10(3)/mc L [facility] Immature Gran % 3.00 % [facility] Comment: Immature granulocytes(IG's)percentage and absolute count will include metamyelocytes, myelocytes, and promyelocytes. Blood smears from CBCs yielding IG's will be scanned manually for concordance. If this scan disagrees with the automated IG or if promyelocytes are noted, a manual differential will be performed. Patti Gran Abs 0.37(H) 0.00 - 0.04 x10(3)/ L [facility] Blood specimen (specimen) 07/27/2017 2:45 AM EDT 07/27/2017 2:55 AM EDT Narrative Resulting Agency Comment Spec In Lab Sriram Contreras MD HEMATOLOGY ORDERAB LES [facility] [place] [address] * (ABNORMAL) Hemogram (07/27/2017 2:45 AM EDT) WBC 12.4(H) 4.0 - 9.5 x10(3)/[facility] RBC 4.66 4.58 - 5.54 x10(6)/[facility] Hemoglobin 14.3 13.7 - 16.5 gm/dL [facility] Hematocrit 42.0 40.5 - 48.5 % [facility] MCV 90.1 82.9 - 93.1 [facility] MCH 30.7 27.5 - 32.1 pg [facility] MCHC 34.0 32.0 - 35.7 gm/dL [facility] Platelets 288 145 - 357 x10(3)/[facility] RDWSD 45.5(H) 36.0 - 45.0 [facility] RDWCV 14.0(H) 11.4 - 13.8 % [facility] MPV 9.7 7.6 - 12.9 [facility] nRBC % Auto 0.0 % [facility] nRBC Abs Auto 0.000 0.000 - 0.000 x10(3)/[facility] Blood specimen (specimen) 07/27/2017 2:45 AM EDT 07/27/2017 2:55 AM EDT Narrative Resulting Agency Comment Spec In Lab Sriram Contreras MD HEMATOLOGY ORDERAB LES [facility] [place] [address] * (ABNORMAL) Basic Metabolic Panel (non-fasting) (07/27/2017 2:45 AM EDT) Glucose Lvl 169 65 - 199 mg/dL [facility] Comment:Diabetes: >=200 mg/d L plus symptoms BUN 22(H) 10 - 20 mg/dL [facility] Creatinine 0.92 0.80 - 1.50 mg/dL [facility] Comment: Please note that the pediatric reference intervals supplied above were not validated at [facility]. Results from pediatric patients should be interpreted in conjunction to the patient's age, height and muscle mass. Sodium 139 135 - 145 mmol/L [facility] Potassium 3.7 3.5 - 5.0 mmol/L [facility] Comment: Please note: ??Patients with WBC >100,000 may have falsely elevated Potassium levels. ??For accurate Potassium quantification in these patients send serum separator tube (gold top) for subsequent determinations. ??Contact the Clinical Chemistry Laboratory if there are any questions. Chloride 100 98 - 107 mmol/L [facility] CO2 23 22 - 31 mmol/L [facility] Anion Gap 16(H) 5 - 15 mmol/L [facility] [facility] Calcium 9.4 8.5 - 10.5 mg/dL [facility] Estimated GFR >60 >=60 [place] [...] the following links into your internet browser. [email or web address] Blood specimen (specimen) 07/27/2017 2:45 AM EDT 07/27/2017 2:55 AM EDT Narrative Resulting Agency Comment Spec In Lab Sriram Contreras MD CHEMISTRY ORDERABL ES Performing Organization Address [facility] de Phone Number [facility] [place] [address] * Phosphorus (07/27/2017 2:45 AM EDT) Phosphorus 4.3 2.5 - 4.5 mg/dL [facility] Blood specimen (specimen) 07/27/2017 2:45 AM EDT 07/27/2017 2:55 AM EDT Narrative Resulting Agency Comment Spec In Lab Sriram Contreras MD CHEMISTRY ORDERABL ES Performing Organization Address [facility] Phone Number [facility] [place] [address] * Magnesium (07/27/2017 2:45 AM EDT) Magnesium 0.79 0.69 - 1.07 mmol/L [facility] Blood specimen (specimen) 07/27/2017 2:45 AM EDT 07/27/2017 2:55 AM EDT Narrative Resulting Agency Comment Spec In Lab Sriram Contreras MD CHEMISTRY ORDERABL ES Performing Organization Address [facility] de Phone Number [facility] [place] [address] * POCT Glucose (07/27/2017 12:02 AM EDT) POC Glucose 112 65 - 199 mg/dL [facility] Comment: Supplemental ranges: <140 mg/dL before meals <180 mg/dL all other times of the day Blood specimen (specimen) 07/27/2017 12:02 AM EDT 07/27/2017 12:02 AM EDT Sriram Contreras MD POINT OF CARE TEST ORDERABLES Performing Organization Address [facility] Co de Phone Number [facility] [place] [address] * (ABNORMAL) APTT (07/26/2017 9:29 PM EDT) PTT 90(H) 25 - 35 sec [facility] Comment: The recommended therapeutic range for full dose, unfractionated heparin at [facility] is 80 ? 114 seconds. The use of the anti-Xa (heparin) level rather than the PTT is recommended for monitoring anticoagulation intensity in critically ill patients receiving unfractionated heparin by continuous IV infusion. Blood specimen (specimen) 07/26/2017 9:29 PM EDT 07/26/2017 9:32 PM EDT Narrative Resulting Agency Comment Spec In Lab Sriram Contreras MD HEMATOLOGY ORDERAB LES Performing Organization Address [facility] Co de Phone Number [facility] [place] [address] * POCT Glucose (07/26/2017 8:14 PM EDT) POC Glucose 116 65 - 199 mg/dL [facility] Comment: Supplemental ranges: <140 mg/dL before meals <180 mg/dL all other times of the day Blood specimen (specimen) 07/26/2017 8:14 PM EDT 07/26/2017 8:14 PM EDT Sriram Contreras MD POINT OF CARE TEST ORDERABLES Performing Organization Address [facility] Co de Phone Number [facility] [place] [address] * POCT Glucose (07/26/2017 3:20 PM EDT) POC Glucose 125 65 - 199 mg/dL [facility] Comment: Supplemental ranges: <140 mg/dL before meals <180 mg/dL all other times of the day Blood specimen (specimen) 07/26/2017 3:20 PM EDT 07/26/2017 3:20 PM EDT Sriram Contreras MD POINT OF CARE TEST ORDERABLES Performing Organization Address [facility] Co de Phone Number [facility] [place] [address] * (ABNORMAL) APTT (07/26/2017 1:51 PM EDT) PTT 88(H) 25 - 35 sec [facility] Comment: The recommended therapeutic range for full dose, unfractionated heparin at [facility] is 80 ? 114 seconds. The use of the anti-Xa (heparin) level rather than the PTT is recommended for monitoring anticoagulation intensity in critically ill patients receiving unfractionated heparin by continuous IV infusion. Blood specimen (specimen) 07/26/2017 1:51 PM EDT 07/26/2017 1:55 PM EDT Narrative Resulting Agency Comment Spec In Lab Sriram Contreras MD HEMATOLOGY ORDERAB LES Performing Organization Address [facility] Co de Phone Number [facility] [place] [address] * POCT Glucose (07/26/2017 11:12 AM EDT) POC Glucose 120 65 - 199 mg/dL [facility] Comment: Supplemental ranges: <140 mg/dL before meals <180 mg/dL all other times of the day Blood specimen (specimen) 07/26/2017 11:12 AM EDT 07/26/2017 11:12 AM EDT Sriram Contreras MD POINT OF CARE TEST ORDERABLES Performing Organization Address [facility] Co de Phone Number [facility] [place] [address] * POCT Glucose (07/26/2017 7:35 AM EDT) POC Glucose 115 65 - 199 mg/dL [facility] Comment: Supplemental ranges: <140 mg/dL before meals <180 mg/dL all other times of the day Blood specimen (specimen) 07/26/2017 7:35 AM EDT 07/26/2017 7:35 AM EDT Sriram Contreras MD POINT OF CARE TEST ORDERABLES Performing Organization Address [facility] Co de Phone Number [facility] [place] [address] * (ABNORMAL) APTT (07/26/2017 3:30 AM EDT) PTT 60(H) 25 - 35 sec [facility] Comment: The recommended therapeutic range for full dose, unfractionated heparin at [facility] is 80 ? 114 seconds. The use of the anti-Xa (heparin) level rather than the PTT is recommended for monitoring anticoagulation intensity in critically ill patients receiving unfractionated heparin by continuous IV infusion. Blood specimen (specimen) 07/26/2017 3:30 AM EDT 07/26/2017 4:11 AM EDT Narrative Resulting Agency Comment Spec In Lab Sriram Contreras MD HEMATOLOGY ORDERAB LES Performing Organization Address [facility] Co de Phone Number [facility] [place] [address] * (ABNORMAL) Differential, Automated (07/26/2017 3:30 AM EDT) Neutrophils % 68.7 % [facility] Neutr Abs (ANC) 8.50(H) 1.70 - 6.10 x10(3)/mc L [facility] Lymphocytes % 14.3 % [facility] Lymphocytes Abs 1.8 0.9 - 3.2 x10(3)/mc L [facility] Monocytes % 9.6 % [facility] Monocyte Abs 1.2(H) 0.3 - 0.9 x10(3)/mc L [facility] Eosinophils % 1.3 % [facility] Eosinophils Abs 0.2 0.0 - 0.4 x10(3)/mc L [facility] Basophils % 1.4 % [facility] Basophils Abs 0.2(H) 0.0 - 0.1 x10(3)/[facility] Immature Gran % 4.70 % [facility] Comment: Immature granulocytes(IG's)percentage and absolute count will include metamyelocytes, myelocytes, and promyelocytes. Blood smears from CBCs yielding IG's will be scanned manually for concordance. If this scan disagrees with the automated IG or if promyelocytes are noted, a manual differential will be performed. Patti Gran Abs 0.58(H) 0.00 - 0.04 x10(3)/[facility] Blood specimen (specimen) 07/26/2017 3:30 AM EDT 07/26/2017 4:11 AM EDT Narrative Resulting Agency Comment Spec In Lab Sriram Contreras MD HEMATOLOGY ORDERAB LES Performing Organization Address City/State/[facility] Co de Phone Number [facility] [place] [address] * (ABNORMAL) Hemogram (07/26/2017 3:30 AM EDT) WBC 12.4(H) 4.0 - 9.5 x10(3)/[facility] RBC 4.87 4.58 - 5.54 x10(6)/[facility] Hemoglobin 15.2 13.7 - 16.5 gm/dL [facility] Hematocrit 44.1 40.5 - 48.5 % [facility] MCV 90.6 82.9 - 93.1 fL [facility] MCH 31.2 27.5 - 32.1 pg [facility] MCHC 34.5 32.0 - 35.7 gm/dL [facility] Platelets 253 145 - 357 x10(3)/[facility] RDWSD 44.8 36.0 - 45.0 fL [facility] RDWCV 13.6 11.4 - 13.8 % [facility] MPV 10.4 7.6 - 12.9 fL [facility] nRBC % Auto 0.2 % [facility] nRBC Abs Auto 0.020(H) 0.000 - 0.000 x10(3)/mcL [facility] Blood specimen (specimen) 07/26/2017 3:30 AM EDT 07/26/2017 4:11 AM EDT Narrative Resulting Agency Comment Spec In Lab Sriram Contreras MD HEMATOLOGY ORDERAB LES [facility] [place] [address] * Basic Metabolic Panel (non-fasting) (07/26/2017 3:30 AM EDT) Glucose Lvl 123 65 - 199 mg/dL [facility] Comment:Diabetes: >=200 mg/d L plus symptoms BUN 18 10 - 20 mg/dL [facility] Creatinine 0.85 0.80 - 1.50 mg/dL [facility] Comment: Please note that the pediatric reference intervals supplied above were not validated at [facility]. Results from pediatric patients should be interpreted in conjunction to the patient's age, height and muscle mass. Sodium 141 135 - 145 mmol/L [facility] Potassium 3.8 3.5 - 5.0 mmol/L [facility] Comment: Please note: ??Patients with WBC >100,000 may have falsely elevated Potassium levels. ??For accurate Potassium quantification in these patients send serum separator tube (gold top) for subsequent determinations. ??Contact the Clinical Chemistry Laboratory if there are any questions. Chloride 102 98 - 107 mmol/L [facility] CO2 25 22 - 31 mmol/L [facility] Anion Gap 14 5 - 15 mmol/L [facility] Calcium 9.2 8.5 - 10.5 mg/dL [facility] Estimated GFR >60 >=60 [place] [...] the following links into your internet browser. [email or web address] Blood specimen (specimen) 07/26/2017 3:30 AM EDT 07/26/2017 4:11 AM EDT Narrative Resulting Agency Comment Spec In Lab Sriram Contreras MD CHEMISTRY ORDERABL ES Performing Organization Address [facility] Phone Number [facility] [place] [address] * Prealbumin (07/26/2017 3:30 AM EDT) Prealbumin 26 20 - 40 mg/dL [facility] Comment: Prealbumin levels are generally lower in the pediatric population; adult concentrations are usually attained near puberty. Blood specimen (specimen) 07/26/2017 3:30 AM EDT 07/26/2017 4:11 AM EDT Narrative Resulting Agency Comment Spec In Lab Sriram Contreras MD CHEMISTRY ORDERABL ES Performing Organization Address [facility] Phone Number [facility] [place] [address] * POCT Glucose (07/26/2017 3:27 AM EDT) POC Glucose 116 65 - 199 mg/dL [facility] Comment: Supplemental ranges: <140 mg/dL before meals <180 mg/dL all other times of the day Blood specimen (specimen) 07/26/2017 3:27 AM EDT 07/26/2017 3:27 AM EDT Sriram Contreras MD POINT OF CARE TEST ORDERABLES Performing Organization Address [facility] Co de Phone Number [facility] [place] [address] * POCT Glucose (07/25/2017 7:50 PM EDT) POC Glucose 109 65 - 199 mg/dL [facility] Comment: Supplemental ranges: <140 mg/dL before meals <180 mg/dL all other times of the day Blood specimen (specimen) 07/25/2017 7:50 PM EDT 07/25/2017 7:50 PM EDT Sriram Contreras MD POINT OF CARE TEST ORDERABLES Performing Organization Address [facility] de Phone Number [facility] [place] [address] * (ABNORMAL) APTT (07/25/2017 5:51 PM EDT) PTT 112(H) 25 - 35 sec [facility] Comment: The recommended therapeutic range for full dose, unfractionated heparin at [facility] is 80 ? 114 seconds. The use of the anti-Xa (heparin) level rather than the PTT is recommended for monitoring anticoagulation intensity in critically ill patients receiving unfractionated heparin by continuous IV infusion. Blood specimen (specimen) 07/25/2017 5:51 PM EDT 07/25/2017 5:55 PM EDT Narrative Resulting Agency Comment Spec In Lab Sriram Contreras MD HEMATOLOGY ORDERAB LES Performing Organization Address [facility] Co de Phone Number [facility] [place] [address] * POCT Glucose (07/25/2017 4:01 PM EDT) POC Glucose 109 65 - 199 mg/dL [facility] Comment: Supplemental ranges: <140 mg/dL before meals <180 mg/dL all other times of the day Blood specimen (specimen) 07/25/2017 4:01 PM EDT 07/25/2017 4:01 PM EDT Sriram Contreras MD POINT OF CARE TEST ORDERABLES Performing Organization Address [facility] de Phone Number [facility] [place] [address] * POCT Glucose (07/25/2017 12:10 PM EDT) POC Glucose 117 65 - 199 mg/dL [facility] Comment: Supplemental ranges: <140 mg/dL before meals <180 mg/dL all other times of the day Blood specimen (specimen) 07/25/2017 12:10 PM EDT 07/25/2017 12:10 PM EDT Sriram Contreras MD POINT OF CARE TEST ORDERABLES Performing Organization Address [facility] Phone Number [facility] [place] [address] * Potassium (07/25/2017 11:00 AM EDT) Potassium 3.9 3.5 - 5.0 mmol/L [facility] Comment: Please note: ??Patients with [...] MD CHEMISTRY ORDERABL ES Performing Organization Address [facility] de Phone Number [facility] [place] [address] * (ABNORMAL) APTT (07/25/2017 11:00 AM EDT) PTT 102(H) 25 - 35 sec [facility] Comment: The recommended therapeutic range for full dose, unfractionated heparin at [facility] is 80 ? 114 seconds. The use of the anti-Xa ([facility]par[facility]) level rather than the PTT is recommended for monitoring anticoagulation intensity in critically ill patients receiving unfractionated heparin by continuous IV infusion. Blood specimen (specimen) 07/25/2017 11:00 AM EDT 07/25/2017 11:05 AM EDT Narrative Resulting Agency Comment Spec In Lab Sriram Contreras MD HEMATOLOGY ORDERAB LES Performing Organization Address City/[facility] Co de Phone Number [facility] [place] [address] * POCT Glucose (07/25/2017 8:27 AM EDT) [facility] POC Glucose 124 65 - 199 mg/dL [facility] Comment: Supplemental ranges: <140 mg/dL before meals <180 mg/dL all other times of the day Blood specimen (specimen) 07/25/2017 8:27 AM EDT 07/25/2017 8:27 AM EDT Sriram Contreras MD POINT OF CARE TEST ORDERABLES Performing Organization Address [facility] de Phone Number [facility] [place] [address] * (ABNORMAL) BLOOD GAS 2 ARTERIAL (07/25/2017 6:19 AM EDT) pH Art 7.51(H) 7.35 - 7.45 [facility] pCO2 Art 29(L) 35 - 45 mmHg [facility] pO2 Art 59(L) 85 - 104 mmHg [facility] HCO3 Art 22.2 20.0 - 26.0 mmol/L [facility] BE Art -0.9 -3.0 - 3.0 mmol/L [facility] Hgb Blood Gas 14.6 13.7 - 16.5 gm/dL [facility] O2HB Art 91.1(L) 94.0 - 97.0 % [facility] COHB Art 0.3 % [facility] Comment: Nonsmokers: 0.5-1.5% COHB Smokers: Variable, but usually less than 10% Toxic: 20-30% COHB Lethal: Greater than 60% COHB METHB Art 0.6 <=1.5 % [facility] Na Whole Blood 141 135 - 145 mmol/L [facility] K Whole Blood 3.8 3.5 - 5.0 mmol/L [facility] Comment: Please note: Patients with WBC >100,000 may have falsely elevated Potassium levels. Contact the Clinical Chemistry Laboratory if there are any questions. ICa Whole Blood 1.17 1.15 - 1.33 mmol/L [facility] Comment: Note: ??Total bilirubin higher than 20 mg/dL may lead to falsely low ionized calcium. CL Whole Blood 108(H) 98 - 107 mmol/L [facility] Gluc Whole Bld 136 65 - 199 mg/dL [facility] Comment:Diabetes: >=200 mg/d L plus symptoms. Lactate WB 1.5 0.5 - 2.2 mmol/L [facility] Blood specimen (specimen) 07/25/2017 6:19 AM EDT 07/25/2017 6:19 AM EDT Sriram Contreras MD CHEMISTRY ORDERABL ES Performing Organization Address [facility] Co de Phone Number [facility] [place] [address] * POCT Glucose (07/25/2017 4:41 AM EDT) POC Glucose 101 65 - 199 mg/dL [facility] Comment: Supplemental ranges: <140 mg/dL before meals <180 mg/dL all other times of the day Blood specimen (specimen) 07/25/2017 4:41 AM EDT 07/25/2017 4:41 AM EDT Sriram Contreras MD POINT OF CARE TEST ORDERABLES Performing Organization Address City/[facility] Co de Phone Number [facility] [place] [address] * Magnesium (07/25/2017 4:37 AM EDT) Pathologist [facility] Magnesium 0.83 0.69 - 1.07 mmol/L [facility] Blood specimen (specimen) Venous Draw / Unknown 07/25/2017 4:37 AM EDT 07/25/2017 4:50 AM EDT Narrative Resulting Agency Comment Spec In Lab Sriram Contreras MD [place] [address] * (ABNORMAL) Differential, Automated (07/25/2017 4:37 AM EDT) [facility] Neutrophils % 68.4 % [facility] Neutr Abs (ANC) 8.77(H) 1.70 - 6.10 x10(3)/mc L [facility] Lymphocytes % 15.0 % [facility] Lymphocytes Abs 1.9 0.9 - 3.2 x10(3)/ L [facility] Monocytes % 8.9 % [facility] Monocyte Abs 1.1(H) 0.3 - 0.9 x10(3)/mc L [facility] Eosinophils % 1.9 % [facility] Eosinophils Abs 0.2 0.0 - 0.4 x10(3)/mc L [facility] Basophils % 1.0 % [facility] Basophils Abs 0.1 0.0 - 0.1 x10(3)/mc L [facility] Immature Gran % 4.80 % [facility] Comment: Immature granulocytes(IG's)percentage and absolute count will include metamyelocytes, myelocytes, and promyelocytes. Blood smears from CBCs yielding IG's will be scanned manually for concordance. If this scan disagrees with the automated IG or if promyelocytes are noted, a manual differential will be performed. Patti Gran Abs 0.62(H) 0.00 - 0.04 x10(3)/ L [facility] Blood specimen (specimen) 07/25/2017 4:37 AM EDT 07/25/2017 4:48 AM EDT Narrative Resulting Agency Comment Spec In Lab Sriram Contreras MD HEMATOLOGY ORDERAB LES Performing Organization Address City/State/[facility] Co de Phone Number [facility] [place] [address] * (ABNORMAL) Hemogram (07/25/2017 4:37 AM EDT) WBC 12.8(H) 4.0 - 9.5 x10(3)/[facility] RBC 4.53(L) 4.58 - 5.54 x10(6)/[facility] Hemoglobin 14.0 13.7 - 16.5 gm/dL [facility] Hematocrit 40.3(L) 40.5 - 48.5 % [facility] MCV 89.0 82.9 - 93.1 [facility] MCH 30.9 27.5 - 32.1 pg [facility] MCHC 34.7 32.0 - 35.7 gm/dL [facility] Platelets 241 145 - 357 x10(3)/[facility] RDWSD 43.1 36.0 - 45.0 [facility] RDWCV 13.2 11.4 - 13.8 % [facility] MPV 9.9 7.6 - 12.9 [facility] nRBC % Auto 0.0 % [facility] nRBC Abs Auto 0.000 0.000 - 0.000 x10(3)/[facility] Blood specimen (specimen) 07/25/2017 4:37 AM EDT 07/25/2017 4:48 AM EDT Narrative Resulting Agency Comment Spec In Lab Sriram Contreras MD HEMATOLOGY ORDERAB LES [facility] [place] [place] [address] * Basic Metabolic Panel (non-fasting) (07/25/2017 4:37 AM EDT) Glucose Lvl 120 65 - 199 mg/dL [facility] Comment:Diabetes: >=200 mg/d L plus symptoms BUN 14 10 - 20 mg/dL [facility] Creatinine 0.81 0.80 - 1.50 mg/dL [facility] Comment: Please note that the pediatric reference intervals supplied above were not validated at [facility]. Results from pediatric patients should be interpreted in conjunction to the patient's age, height and muscle mass. Sodium 140 135 - 145 mmol/L [facility] Potassium 3.6 3.5 - 5.0 mmol/L [facility] Comment: Please note: ??Patients with WBC >100,000 may have falsely elevated Potassium levels. ??For accurate Potassium quantification in these patients send serum separator tube (gold top) for subsequent determinations. ??Contact the Clinical Chemistry Laboratory if there are any questions. Chloride 103 98 - 107 mmol/L [facility] CO2 24 22 - 31 mmol/L [facility] Anion Gap 13 5 - 15 mmol/L [facility] Calcium 8.8 8.5 - 10.5 mg/dL [facility] Estimated GFR >60 >=60 [place] [...] the following links into your internet browser. [email or web address] Blood specimen (specimen) 07/25/2017 4:37 AM EDT 07/25/2017 4:48 AM EDT Narrative Resulting Agency Comment Spec In Lab Sriram Contreras MD CHEMISTRY ORDERABL ES Performing Organization Address [facility] Co de Phone Number [facility] [place] [address] * (ABNORMAL) APTT (07/25/2017 4:37 AM EDT) PTT 122(H) 25 - 35 sec [facility] Comment: The recommended therapeutic range for full dose, unfractionated heparin at [facility] is 80 ? 114 seconds. The use of the anti-Xa (heparin) level rather than the PTT is recommended for monitoring anticoagulation intensity in critically ill patients receiving unfractionated heparin by continuous IV infusion. Blood specimen (specimen) 07/25/2017 4:37 AM EDT 07/25/2017 4:48 AM EDT Narrative Resulting Agency Comment Spec In Lab Sriram Contreras MD HEMATOLOGY ORDERAB LES Performing Organization Address [facility] Phone Number [facility] [place] [address] * POCT Glucose (07/25/2017 12:10 AM EDT) POC Glucose 108 65 - 199 mg/dL [facility] Comment: Supplemental ranges: <140 mg/dL before meals <180 mg/dL all other times of the day Blood specimen (specimen) 07/25/2017 12:10 AM EDT 07/25/2017 12:10 AM EDT Sriram Contreras MD POINT OF CARE TEST ORDERABLES Performing Organization Address [facility] Co de Phone Number [facility] [place] [address] * POCT Glucose (07/24/2017 8:05 PM EDT) POC Glucose 112 65 - 199 mg/dL [facility] Comment: Supplemental ranges: <140 mg/dL before meals <180 mg/dL all other times of the day Blood specimen (specimen) 07/24/2017 8:05 PM EDT 07/24/2017 8:05 PM EDT Sriram Contreras MD POINT OF CARE TEST ORDERABLES Performing Organization Address City/[facility]/ZIP Co de Phone Number [facility] [place] [address] * POCT Glucose (07/24/2017 8:04 PM EDT) POC Glucose 106 65 - 199 mg/dL [facility] Comment: Supplemental ranges: <140 mg/dL before meals <180 mg/dL all other times of the day Blood specimen (specimen) 07/24/2017 8:04 PM EDT 07/24/2017 8:04 PM EDT Sriram Contreras MD POINT OF CARE TEST ORDERABLES Performing Organization Address City/[facility] Co de Phone Number [facility] [place] [address] * POCT Glucose (07/24/2017 3:42 PM EDT) POC Glucose 108 65 - 199 mg/dL [facility] Comment: Supplemental ranges: <140 mg/dL before meals <180 mg/dL all other times of the day Blood specimen (specimen) 07/24/2017 3:42 PM EDT 07/24/2017 3:42 PM EDT Sriram Contreras MD POINT OF CARE TEST ORDERABLES Performing Organization Address City/[facility] Co de Phone Number [facility] [place] [address] * POCT Glucose (07/24/2017 11:42 AM EDT) POC Glucose 102 65 - 199 mg/dL [facility] Comment: Supplemental ranges: <140 mg/dL before meals <180 mg/dL all other times of the day Blood specimen (specimen) 07/24/2017 11:42 AM EDT 07/24/2017 11:42 AM EDT Sriram Contreras MD POINT OF CARE TEST ORDERABLES Performing Organization Address City/[facility] Co de Phone Number [facility] [place] [address] * POCT Glucose (07/24/2017 8:00 AM EDT) POC Glucose 107 65 - 199 mg/dL [facility] Comment: Supplemental ranges: <140 mg/dL before meals <180 mg/dL all other times of the day Blood specimen (specimen) 07/24/2017 8:00 AM EDT 07/24/2017 8:00 AM EDT Sriram Contreras MD POINT OF CARE TEST ORDERABLES Performing Organization Address City/[facility] Co de Phone Number [facility] [place] [address] * (ABNORMAL) BLOOD GAS 2 ARTERIAL (07/24/2017 7:28 AM EDT) pH Art 7.44 7.35 - 7.45 [facility] pCO2 Art 39 35 - 45 mmHg [facility] pO2 Art 67(L) 85 - 104 mmHg [facility] HCO3 Art 25.5 20.0 - 26.0 mmol/L [facility] BE Art 1.2 -3.0 - 3.0 mmol/L [facility] Hgb Blood Gas 13.8 13.7 - 16.5 gm/dL [facility] O2HB Art 92.8(L) 94.0 - 97.0 % [facility] COHB Art 0.3 % [facility] Comment: Nonsmokers: 0.5-1.5% COHB Smokers: Variable, but usually less than 10% Toxic: 20-30% COHB Lethal: Greater than 60% COHB METHB Art 0.6 <=1.5 % [facility] Na Whole Blood 139 135 - 145 mmol/L [facility] K Whole Blood 4.0 3.5 - 5.0 mmol/L [facility] Comment: Please note: Patients with WBC >100,000 may have falsely elevated Potassium levels. Contact the Clinical Chemistry Laboratory if there are any questions. ICa Whole Blood 1.21 1.15 - 1.33 mmol/L [facility] Comment: Note: ??Total bilirubin higher than 20 mg/dL may lead to falsely low ionized calcium. CL Whole Blood 105 98 - 107 mmol/L [facility] Gluc Whole Bld 123 65 - 199 mg/dL [facility] Comment:Diabetes: >=200 mg/d L plus symptoms. Lactate WB 1.7 0.5 - 2.2 mmol/L [facility] FIO2 Art 30 % [facility] PF Ratio Art 223 [facility] Blood specimen (specimen) 07/24/2017 7:28 AM EDT 07/24/2017 7:28 AM EDT Sriram Contreras MD CHEMISTRY ORDERABL ES [facility] [place] [address] * Potassium (07/24/2017 7:28 AM EDT) Potassium 4.1 3.5 - 5.0 mmol/L [facility] Comment: Please note: ??Patients with [...] MD CHEMISTRY ORDERABL ES Performing Organization Address [facility] Co de Phone Number [facility] [place] [address] * POCT Glucose (07/24/2017 3:42 AM EDT) [facility] POC Glucose 91 65 - 199 mg/dL [facility] Comment: Supplemental ranges: <140 mg/dL before meals <180 mg/dL all other times of the day Blood specimen (specimen) 07/24/2017 3:42 AM EDT 07/24/2017 3:42 AM EDT Sriram Contreras MD POINT OF CARE TEST ORDERABLES Performing Organization Address [facility] Co de Phone Number [facility] [place] [address] * Scan, Peripheral Blood (07/24/2017 1:00 AM EDT) [facility] Plat Estimate Normal [facility] RBC Morphology Normal [facility] Blood specimen (specimen) Venous Draw / Unknown 07/24/2017 1:00 AM EDT 07/24/2017 1:15 AM EDT Narrative Resulting Agency Comment Spec In Lab Sriram Contreras MD HEMATOLOGY ORDERAB LES Performing Organization Address [facility] Co de Phone Number [facility] [place] [address] * (ABNORMAL) Differential, Automated (07/24/2017 1:00 AM EDT) [facility] Neutrophils % 69.9 % [facility] Neutr Abs (ANC) 9.34(H) 1.70 - 6.10 x10(3)/mc L [facility] Lymphocytes % 13.7 % [facility] Lymphocytes Abs 1.8 0.9 - 3.2 x10(3)/mc L [facility] Monocytes % 8.1 % [facility] Monocyte Abs 1.1(H) 0.3 - 0.9 x10(3)/[facility] Eosinophils % 2.2 % [facility] Eosinophils Abs 0.3 0.0 - 0.4 x10(3)/[facility] Basophils % 0.7 % [facility] Basophils Abs 0.1 0.0 - 0.1 x10(3)/[facility] Immature Gran % 5.40 % [facility] Comment: Immature granulocytes(IG's)percentage and absolute count will include metamyelocytes, myelocytes, and promyelocytes. Blood smears from CBCs yielding IG's will be scanned manually for concordance. If this scan disagrees with the automated IG or if promyelocytes are noted, a manual differential will be performed. Patti Gran Abs 0.72(H) 0.00 - 0.04 x10(3)/[facility] Blood specimen (specimen) 07/24/2017 1:00 AM EDT 07/24/2017 1:15 AM EDT Narrative Resulting Agency Comment Spec In Lab Sriram Contreras MD HEMATOLOGY ORDERAB LES [facility] [place] [address] * (ABNORMAL) Hemogram (07/24/2017 1:00 AM EDT) WBC 13.4(H) 4.0 - 9.5 x10(3)/[facility] RBC 4.13(L) 4.58 - 5.54 x10(6)/[facility] Hemoglobin 12.7(L) 13.7 - 16.5 gm/dL [facility] Hematocrit 38.0(L) 40.5 - 48.5 % [facility] MCV 92.0 82.9 - 93.1 fL [facility] MCH 30.8 27.5 - 32.1 pg [facility] MCHC 33.4 32.0 - 35.7 gm/dL [facility] Platelets 201 145 - 357 x10(3)/[facility] LAB[facility] RDWSD 45.5(H) 36.0 - 45.0 fL [facility] RDWCV 13.4 11.4 - 13.8 % [facility] MPV 10.1 7.6 - 12.9 fL [facility] nRBC % Auto 0.0 % [facility] nRBC Abs Auto 0.000 0.000 - 0.000 x10(3)/[facility] Blood specimen (specimen) 07/24/2017 1:00 AM EDT 07/24/2017 1:15 AM EDT Narrative Resulting Agency Comment Spec In Lab Sriram Contreras MD HEMATOLOGY ORDERAB LES Performing Organization Address [facility] de Phone Number [facility] [place] [address] * (ABNORMAL) APTT (07/24/2017 1:00 AM EDT) PTT 102(H) 25 - 35 sec [facility] Comment: The recommended therapeutic range for full dose, unfractionated heparin at [facility] is 80 ? 114 seconds. The use of the anti-Xa (heparin) level rather than the PTT is recommended for monitoring anticoagulation intensity in critically ill patients receiving unfractionated heparin by continuous IV infusion. Blood specimen (specimen) 07/24/2017 1:00 AM EDT 07/24/2017 1:14 AM EDT Narrative Resulting Agency Comment Spec In Lab Sriram Contreras MD HEMATOLOGY ORDERAB LES Performing Organization Address [facility] de Phone Number [facility] [place] [address] * (ABNORMAL) Basic Metabolic Panel (non-fasting) (07/24/2017 1:00 AM EDT) Glucose Lvl 103 65 - 199 mg/dL [facility] Comment:Diabetes: >=200 mg/d L plus symptoms BUN 17 10 - 20 mg/dL [facility] Creatinine 0.70(L) 0.80 - 1.50 mg/dL [facility] Comment: Please note that the pediatric reference intervals supplied above were not validated at [facility]. Results from pediatric patients should be interpreted in conjunction to the patient's age, height and muscle mass. Sodium 143 135 - 145 mmol/L [facility] Potassium 4.0 3.5 - 5.0 mmol/L [facility] Comment: Please note: ??Patients with WBC >100,000 may have falsely elevated Potassium levels. ??For accurate Potassium quantification in these patients send serum separator tube (gold top) for subsequent determinations. ??Contact the Clinical Chemistry Laboratory if there are any questions. Chloride 104 98 - 107 mmol/L [facility] CO2 27 22 - 31 mmol/L [facility] Anion Gap 12 5 - 15 mmol/L [facility] Calcium 8.7 8.5 - 10.5 mg/dL [facility] Estimated GFR >60 >=60 [place] [...] the following links into your internet browser. [email or web address] Blood specimen (specimen) 07/24/2017 1:00 AM EDT 07/24/2017 1:14 AM EDT Narrative Resulting Agency Comment Spec In Lab Sriram Contreras MD CHEMISTRY ORDERABL ES [facility] [place] [address] * POCT Glucose (07/23/2017 11:53 PM EDT) POC Glucose 95 65 - 199 mg/dL [facility] Comment: Supplemental ranges: <140 mg/dL before meals <180 mg/dL all other times of the day Blood specimen (specimen) 07/23/2017 11:53 PM EDT 07/23/2017 11:53 PM EDT Sriram Contreras MD POINT OF CARE TEST ORDERABLES [facility] [place] [address] * POCT Glucose (07/23/2017 7:52 PM EDT) POC Glucose 91 65 - 199 mg/dL [facility] Comment: Supplemental ranges: <140 mg/dL before meals <180 mg/dL all other times of the day Blood specimen (specimen) 07/23/2017 7:52 PM EDT 07/23/2017 7:52 PM EDT Sriram Contreras MD POINT OF CARE TEST ORDERABLES Performing Organization Address City/[facility]/ZIP Co de Phone Number [facility] [place] [address] * POCT Glucose (07/23/2017 2:56 PM EDT) POC Glucose 115 65 - 199 mg/dL [facility] Comment: Supplemental ranges: <140 mg/dL before meals <180 mg/dL all other times of the day Blood specimen (specimen) 07/23/2017 2:56 PM EDT 07/23/2017 2:56 PM EDT Sriram Contreras MD POINT OF CARE TEST ORDERABLES [facility] [place] [address] * (ABNORMAL) APTT (07/23/2017 2:55 PM EDT) PTT 101(H) 25 - 35 sec [facility] Comment: The recommended therapeutic range for full dose, unfractionated heparin at [facility] is 80 ? 114 seconds. The use of the anti-Xa (heparin) level rather than the PTT is recommended for monitoring anticoagulation intensity in critically ill patients receiving unfractionated heparin by continuous IV infusion. Blood specimen (specimen) 07/23/2017 2:55 PM EDT 07/23/2017 3:04 PM EDT Narrative Resulting Agency Comment Spec In Lab Sriram Contreras MD HEMATOLOGY ORDERAB LES Performing Organization Address [facility]/ZIP Co de Phone Number [facility] [place] [address] * POCT Glucose (07/23/2017 12:07 PM EDT) [facility] POC Glucose 97 65 - 199 mg/dL [facility] Comment: Supplemental ranges: <140 mg/dL before meals <180 mg/dL all other times of the day Blood specimen (specimen) 07/23/2017 12:07 PM EDT 07/23/2017 12:07 PM EDT Sriram Contreras MD POINT OF CARE TEST ORDERABLES Performing Organization Address [facility] Co de Phone Number [facility] [place] [address] * (ABNORMAL) APTT (07/23/2017 8:27 AM EDT) PTT 95(H) 25 - 35 sec [facility] Comment: The recommended therapeutic range for full dose, unfractionated heparin at [facility] is 80 ? 114 seconds. The use of the anti-Xa (heparin) level rather than the PTT is recommended for monitoring anticoagulation intensity in critically ill patients receiving unfractionated heparin by continuous IV infusion. Blood specimen (specimen) 07/23/2017 8:27 AM EDT 07/23/2017 8:51 AM EDT Narrative Resulting Agency Comment Spec In Lab Sriram Contreras MD HEMATOLOGY ORDERAB LES [facility] [place] [place] [address] * POCT Glucose (07/23/2017 8:02 AM EDT) [facility] POC Glucose 103 65 - 199 mg/dL [facility] Comment: Supplemental ranges: <140 mg/dL before meals <180 mg/dL all other times of the day Blood specimen (specimen) 07/23/2017 8:02 AM EDT 07/23/2017 8:02 AM EDT Sriram Contreras MD POINT OF CARE TEST ORDERABLES Performing Organization Address [facility] Co de Phone Number [facility] [place] [place] [address] * (ABNORMAL) BLOOD GAS 2 ARTERIAL (07/23/2017 6:32 AM EDT) [facility] pH Art 7.41 7.35 - 7.45 [facility] pCO2 Art 37 35 - 45 mmHg [facility] pO2 Art 60(L) 85 - 104 mmHg [facility] HCO3 Art 22.6 20.0 - 26.0 mmol/L [facility] BE Art -2.0 -3.0 - 3.0 mmol/L [facility] Hgb Blood Gas 12.7(L) 13.7 - 16.5 gm/dL [facility] O2HB Art 90.3(L) 94.0 - 97.0 % [facility] COHB Art 0.3 % [facility] Comment: Nonsmokers: 0.5-1.5% COHB Smokers: Variable, but usually less than 10% Toxic: 20-30% COHB Lethal: Greater than 60% COHB METHB Art 0.5 <=1.5 % [facility] Na Whole Blood 138 135 - 145 mmol/L [facility] K Whole Blood 3.7 3.5 - 5.0 mmol/L [facility] Comment: Please note: Patients with WBC >100,000 may have falsely elevated Potassium levels. Contact the Clinical Chemistry Laboratory if there are any questions. ICa Whole Blood 1.15(L) 1.15 - 1.33 mmol/L [facility] Comment: Note: ??Total bilirubin higher than 20 mg/dL may lead to falsely low ionized calcium. CL Whole Blood 109(H) 98 - 107 mmol/L [facility] Gluc Whole Bld 122 65 - 199 mg/dL [facility] Comment:Diabetes: >=200 mg/d L plus symptoms. Lactate WB 1.4 0.5 - 2.2 mmol/L [facility] FIO2 Art 30 % [facility] PF Ratio Art 200 [facility] Blood specimen (specimen) 07/23/2017 6:32 AM EDT 07/23/2017 6:32 AM EDT Sriram Contreras MD CHEMISTRY ORDERABL ES Performing Organization Address [facility] Co de Phone Number [facility] [place] [address] * Potassium (07/23/2017 4:15 AM EDT) Potassium 4.1 3.5 - 5.0 mmol/L [facility] Comment: Please note: ??Patients with [...] ORDERABL ES Performing Organization Address [facility]/ZIP Co de Phone Number [facility] [place] [place] [address] * POCT Glucose (07/23/2017 3:50 AM EDT) [facility] POC Glucose 126 65 - 199 mg/dL [facility] Comment: Supplemental ranges: <140 mg/dL before meals <180 mg/dL all other times of the day Blood specimen (specimen) 07/23/2017 3:50 AM EDT 07/23/2017 3:50 AM EDT Sriram Contreras MD POINT OF CARE TEST ORDERABLES Performing Organization Address [facility] Co de Phone Number [facility] [place] [address] * (ABNORMAL) APTT (07/23/2017 1:53 AM EDT) [facility] PTT 119(H) 25 - 35 sec [facility] Comment: The recommended therapeutic range for full dose, unfractionated heparin at [facility] is 80 ? 114 seconds. The use of the anti-Xa (heparin) level rather than the PTT is recommended for monitoring anticoagulation intensity in critically ill patients receiving unfractionated heparin by continuous IV infusion. Blood specimen (specimen) 07/23/2017 1:53 AM EDT 07/23/2017 2:01 AM EDT Narrative Resulting Agency Comment Spec In Lab Sriram Contreras MD HEMATOLOGY ORDERAB LES Performing Organization Address [facility] Co de Phone Number [facility] [place] [place] [address] * (ABNORMAL) Differential, Automated (07/23/2017 12:45 AM EDT) [facility] Neutrophils % 63.2 % [facility] Neutr Abs (ANC) 6.47(H) 1.70 - 6.10 x10(3)/mc L [facility] Lymphocytes % 20.9 % [facility] Lymphocytes Abs 2.1 0.9 - 3.2 x10(3)/mc L [facility] Monocytes % 7.6 % [facility] Monocyte Abs 0.8 0.3 - 0.9 x10(3)/[facility] LABORATORY Eosinophils % 2.8 % [facility] Eosinophils Abs 0.3 0.0 - 0.4 x10(3)/[facility] LABORATORY Basophils % 0.7 % [facility] Basophils Abs 0.1 0.0 - 0.1 x10(3)/[facility] LABORATORY Immature Gran % 4.80 % [facility] Comment: Immature granulocytes(IG's)percentage and absolute count will include metamyelocytes, myelocytes, and promyelocytes. Blood smears from CBCs yielding IG's will be scanned manually for concordance. If this scan disagrees with the automated IG or if promyelocytes are noted, a manual differential will be performed. Patti Gran Abs 0.49(H) 0.00 - 0.04 x10(3)/[facility] LABOR[facility] Blood specimen (specimen) 07/23/2017 12:45 AM EDT 07/23/2017 12:51 AM EDT Narrative Resulting Agency Comment Spec In Lab Sriram Contreras MD HEMATOLOGY ORDERAB LES Performing Organization Address City/State/[facility] Co de Phone Number [facility] [place] [address] * (ABNORMAL) Hemogram (07/23/2017 12:45 AM EDT) WBC 10.2(H) 4.0 - 9.5 x10(3)/[facility] LABORATORY RBC 3.62(L) 4.58 - 5.54 x10(6)/[facility] Hemoglobin 11.1(L) 13.7 - 16.5 gm/dL [facility] Hematocrit 33.5(L) 40.5 - 48.5 % [facility] MCV 92.5 82.9 - 93.1 fL [facility] MCH 30.7 27.5 - 32.1 pg [facility] MCHC 33.1 32.0 - 35.7 gm/dL [facility] Platelets 165 145 - 357 x10(3)/[facility] LABORATORY RDWSD 46.6(H) 36.0 - 45.0 fL [facility] RDWCV 13.7 11.4 - 13.8 % [facility] MPV 9.9 7.6 - 12.9 fL [facility] nRBC % Auto 0.0 % [facility] nRBC Abs Auto 0.000 0.000 - 0.000 x10(3)/[facility] Blood specimen (specimen) 07/23/2017 12:45 AM EDT 07/23/2017 12:51 AM EDT Narrative Resulting Agency Comment Spec In Lab Sriram Contreras MD HEMATOLOGY ORDERAB LES [facility] [place] [place] [address] * (ABNORMAL) Basic Metabolic Panel (non-fasting) (07/23/2017 12:45 AM EDT) Glucose Lvl 127 65 - 199 mg/dL [facility] Comment:Diabetes: >=200 mg/d L plus symptoms BUN 20 10 - 20 mg/dL [facility] Creatinine 0.65(L) 0.80 - 1.50 mg/dL [facility] Comment: Please note that the pediatric reference intervals supplied above were not validated at [facility]. Results from pediatric patients should be interpreted in conjunction to the patient's age, height and muscle mass. Sodium 142 135 - 145 mmol/L [facility] Potassium 3.7 3.5 - 5.0 mmol/L [facility] Comment: Please note: ??Patients with WBC >100,000 may have falsely elevated Potassium levels. ??For accurate Potassium quantification in these patients send serum separator tube (gold top) for subsequent determinations. ??Contact the Clinical Chemistry Laboratory if there are any questions. Chloride 105 98 - 107 mmol/L [facility] CO2 26 22 - 31 mmol/L [facility] Anion Gap 11 5 - 15 mmol/L [facility] Calcium 8.3(L) 8.5 - 10.5 mg/dL [facility] Estimated GFR >60 >=60 [place] [...] the following links into your internet browser. [email or web address] Blood specimen (specimen) 07/23/2017 12:45 AM EDT 07/23/2017 12:51 AM EDT Narrative Resulting Agency Comment Spec In Lab Sriram Contreras MD CHEMISTRY ORDERABL ES Performing Organization Address City/[facility]/ZIP Co de Phone Number [facility] [place] [address] * POCT Glucose (07/22/2017 11:59 PM EDT) POC Glucose 113 65 - 199 mg/dL [facility] Comment: Supplemental ranges: <140 mg/dL before meals <180 mg/dL all other times of the day Blood specimen (specimen) 07/22/2017 11:59 PM EDT 07/22/2017 11:59 PM EDT Sriram Contreras MD POINT OF CARE TEST ORDERABLES Performing Organization Address City/[facility]/ZIP Co de Phone Number [facility] [place] [address] * POCT Glucose (07/22/2017 8:07 PM EDT) POC Glucose 111 65 - 199 mg/dL [facility] Comment: Supplemental ranges: <140 mg/dL before meals <180 mg/dL all other times of the day Blood specimen (specimen) 07/22/2017 8:07 PM EDT 07/22/2017 8:07 PM EDT Sriram Contreras MD POINT OF CARE TEST ORDERABLES Performing Organization Address [facility] de Phone Number [facility] [place] [address] * POCT Glucose (07/22/2017 4:00 PM EDT) POC Glucose 112 65 - 199 mg/dL [facility] Comment: Supplemental ranges: <140 mg/dL before meals <180 mg/dL all other times of the day Blood specimen (specimen) 07/22/2017 4:00 PM EDT 07/22/2017 4:00 PM EDT Sriram Contreras MD POINT OF CARE TEST ORDERABLES Performing Organization Address [facility] Co de Phone Number [facility] [place] [address] * (ABNORMAL) APTT (07/22/2017 4:00 PM EDT) PTT 92(H) 25 - 35 sec [facility] Comment: The recommended therapeutic range for full dose, unfractionated heparin at [facility] is 80 ? 114 seconds. The use of the anti-Xa (heparin) level rather than the PTT is recommended for monitoring anticoagulation intensity in critically ill patients receiving unfractionated heparin by continuous IV infusion. Blood specimen (specimen) 07/22/2017 4:00 PM EDT 07/22/2017 4:18 PM EDT Narrative Resulting Agency Comment Spec In Lab Sriram Contreras MD HEMATOLOGY ORDERAB LES Performing Organization Address [facility] Co de Phone Number [facility] [place] [address] * POCT Glucose (07/22/2017 11:45 AM EDT) POC Glucose 111 65 - 199 mg/dL [facility] Comment: Supplemental ranges: <140 mg/dL before meals <180 mg/dL all other times of the day Blood specimen (specimen) 07/22/2017 11:45 AM EDT 07/22/2017 11:45 AM EDT Sriram Contreras MD POINT OF CARE TEST ORDERABLES Performing Organization Address [facility] Co de Phone Number [facility] [place] [address] * (ABNORMAL) APTT (07/22/2017 8:30 AM EDT) PTT 83(H) 25 - 35 sec [facility] Comment: The recommended therapeutic range for full dose, unfractionated heparin at [facility] is 80 ? 114 seconds. The use of the anti-Xa (heparin) level rather than the PTT is recommended for monitoring anticoagulation intensity in critically ill patients receiving unfractionated heparin by continuous IV infusion. Blood specimen (specimen) 07/22/2017 8:30 AM EDT 07/22/2017 8:39 AM EDT Narrative Resulting Agency Comment Spec In Lab Sriram Contreras MD HEMATOLOGY ORDERAB LES Performing Organization Address [facility] de Phone Number [facility] [place] [address] * POCT Glucose (07/22/2017 8:28 AM EDT) POC Glucose 118 65 - 199 mg/dL [facility] Comment: Supplemental ranges: <140 mg/dL before meals <180 mg/dL all other times of the day Blood specimen (specimen) 07/22/2017 8:28 AM EDT 07/22/2017 8:28 AM EDT Sriram Contreras MD POINT OF CARE TEST ORDERABLES Performing Organization Address [facility] Co de Phone Number [facility] [place] [address] * (ABNORMAL) BLOOD GAS 2 ARTERIAL (07/22/2017 8:27 AM EDT) pH Art 7.42 7.35 - 7.45 [facility] pCO2 Art 39 35 - 45 mmHg [facility] pO2 Art 78(L) 85 - 104 mmHg [facility] HCO3 Art 24.8 20.0 - 26.0 mmol/L [facility] BE Art 0.3 -3.0 - 3.0 mmol/L [facility] Hgb Blood Gas 13.4(L) 13.7 - 16.5 gm/dL [facility] O2HB Art 94.2 94.0 - 97.0 % [facility] COHB Art 0.3 % [facility] Comment: Nonsmokers: 0.5-1.5% COHB Smokers: Variable, but usually less than 10% Toxic: 20-30% COHB Lethal: Greater than 60% COHB METHB Art 0.6 <=1.5 % [facility] Na Whole Blood 140 135 - 145 mmol/L [facility] K Whole Blood 3.8 3.5 - 5.0 mmol/L [facility] Comment: Please note: Patients with WBC >100,000 may have falsely elevated Potassium levels. Contact the Clinical Chemistry Laboratory if there are any questions. ICa Whole Blood 1.21 1.15 - 1.33 mmol/L [facility] Comment: Note: ??Total bilirubin higher than 20 mg/dL may lead to falsely low ionized calcium. CL Whole Blood 107 98 - 107 mmol/L [facility] Gluc Whole Bld 130 65 - 199 mg/dL [facility] Comment:Diabetes: >=200 mg/d L plus symptoms. Lactate WB 1.6 0.5 - 2.2 mmol/L [facility] FIO2 Art 40 % [facility] PF Ratio Art 195 [facility] Blood specimen (specimen) 07/22/2017 8:27 AM EDT 07/22/2017 8:27 AM EDT Sriram Contreras MD CHEMISTRY ORDERABL ES [facility] [place] [address] * (ABNORMAL) Differential, Automated (07/22/2017 3:10 AM EDT) Neutrophils % 72.0 % [facility] Neutr Abs (ANC) 8.75(H) 1.70 - 6.10 x10(3)/[facility] Lymphocytes % 15.0 % [facility] Lymphocytes Abs 1.8 0.9 - 3.2 x10(3)/[facility] Monocytes % 8.0 % [facility] Monocyte Abs 1.0(H) 0.3 - 0.9 x10(3)/[facility] Eosinophils % 2.4 % [facility] Eosinophils Abs 0.3 0.0 - 0.4 x10(3)/[facility] Basophils % 0.3 % [facility] Basophils Abs 0.0 0.0 - 0.1 x10(3)/[facility] Immature Gran % 2.30 % [facility] Comment: Immature granulocytes(IG's)percentage and absolute count will include metamyelocytes, myelocytes, and promyelocytes. Blood smears from CBCs yielding IG's will be scanned manually for concordance. If this scan disagrees with the automated IG or if promyelocytes are noted, a manual differential will be performed. Patti Gran Abs 0.28(H) 0.00 - 0.04 x10(3)/[facility] Blood specimen (specimen) 07/22/2017 3:10 AM EDT 07/22/2017 3:15 AM EDT Narrative Resulting Agency Comment Spec In Lab Sriram Contreras MD HEMATOLOGY ORDERAB LES Performing Organization Address City/[facility]/ZIP Co de Phone Number [facility] [place] [address] * (ABNORMAL) Hemogram (07/22/2017 3:10 AM EDT) WBC 12.2(H) 4.0 - 9.5 x10(3)/[facility] RBC 4.05(L) 4.58 - 5.54 x10(6)/[facility] Hemoglobin 12.5(L) 13.7 - 16.5 gm/dL [facility] Hematocrit 37.9(L) 40.5 - 48.5 % [facility] MCV 93.6(H) 82.9 - 93.1 [facility] MCH 30.9 27.5 - 32.1 pg [facility] MCHC 33.0 32.0 - 35.7 gm/dL [facility] Platelets 168 145 - 357 x10(3)/[facility] RDWSD 48.9(H) 36.0 - 45.0 [facility] RDWCV 14.1(H) 11.4 - 13.8 % [facility] MPV 10.2 7.6 - 12.9 [facility] nRBC % Auto 0.0 % [facility] nRBC Abs Auto 0.000 0.000 - 0.000 x10(3)/[facility] Blood specimen (specimen) 07/22/2017 3:10 AM EDT 07/22/2017 3:15 AM EDT Narrative Resulting Agency Comment Spec In Lab Sriram Contreras MD HEMATOLOGY ORDERAB LES Performing Organization Address City/[facility]/ZIP Co de Phone Number [facility] [place] [address] * (ABNORMAL) APTT (07/22/2017 3:10 AM EDT) Pathologist [facility] PTT 89(H) 25 - 35 sec [facility] Comment: The recommended therapeutic range for full dose, unfractionated heparin at [facility] is 80 ? 114 seconds. The use of the anti-Xa (heparin) level rather than the PTT is recommended for monitoring anticoagulation intensity in critically ill patients receiving unfractionated heparin by continuous IV infusion. Blood specimen (specimen) 07/22/2017 3:10 AM EDT 07/22/2017 3:15 AM EDT Narrative Resulting Agency Comment Spec In Lab Sriram Contreras MD HEMATOLOGY ORDERAB LES [facility] [place] [address] * (ABNORMAL) Basic Metabolic Panel (non-fasting) (07/22/2017 3:10 AM EDT) Pathologist [facility] Glucose Lvl 121 65 - 199 mg/dL [facility] Comment:Diabetes: >=200 mg/d L plus symptoms BUN 23(H) 10 - 20 mg/dL [facility] Creatinine 0.76(L) 0.80 - 1.50 mg/dL [facility] Comment: Please note that the pediatric reference intervals supplied above were not validated at [facility]. Results from pediatric patients should be interpreted in conjunction to the patient's age, height and muscle mass. Sodium 144 135 - 145 mmol/L [facility] Potassium 3.9 3.5 - 5.0 mmol/L [facility] Comment: Please note: ??Patients with WBC >100,000 may have falsely elevated Potassium levels. ??For accurate Potassium quantification in these patients send serum separator tube (gold top) for subsequent determinations. ??Contact the Clinical Chemistry Laboratory if there are any questions. Chloride 106 98 - 107 mmol/L [facility] CO2 25 22 - 31 mmol/L [facility] Anion Gap 13 5 - 15 mmol/L [facility] Calcium 8.3(L) 8.5 - 10.5 mg/dL [facility] Estimated GFR >60 >=60 [place] [...] the following links into your internet browser. [email or web address] Blood specimen (specimen) 07/22/2017 3:10 AM EDT 07/22/2017 3:15 AM EDT Narrative Resulting Agency Comment Spec In Lab Sriram Contreras MD CHEMISTRY ORDERABL ES Performing Organization Address [facility] Phone Number [facility] [place] [address] * POCT Glucose (07/22/2017 3:08 AM EDT) POC Glucose 109 65 - 199 mg/dL [facility] Comment: Supplemental ranges: <140 mg/dL before meals <180 mg/dL all other times of the day Blood specimen (specimen) 07/22/2017 3:08 AM EDT 07/22/2017 3:08 AM EDT Sriram Contreras MD POINT OF CARE TEST ORDERABLES Performing Organization Address [facility] Co de Phone Number [facility] [place] [address] * POCT Glucose (07/21/2017 11:52 PM EDT) POC Glucose 135 65 - 199 mg/dL [facility] Comment: Supplemental ranges: <140 mg/dL before meals <180 mg/dL all other times of the day Blood specimen (specimen) 07/21/2017 11:52 PM EDT 07/21/2017 11:52 PM EDT Sriram Contreras MD POINT OF CARE TEST ORDERABLES Performing Organization Address [facility] de Phone Number [facility] [place] [address] * EKG 12 Lead (07/21/2017 10:42 PM EDT) Ventricular rate 75 BPM MUSE SYSTEM Atrial Rate 258 BPM MUSE SYSTEM QRS Duration 86 ms MUSE SYSTEM Q-T Interval 400 ms MUSE SYSTEM QTC Calculated (Bezet) 446 ms MUSE SYSTEM Calculated R [place] 61 degrees MUSE SYSTEM Calculated T [place] 136 degrees MUSE SYSTEM INTERPRETATION Atrial fibrillation [...] Contreras MD ECG ORDERABLES Performing Organization Address [facility] de Phone Number MUSE SYSTEM * Magnesium (07/21/2017 10:35 PM EDT) Pathologist [facility] Magnesium 0.80 0.69 - 1.07 mmol/L [facility] Blood specimen (specimen) 07/21/2017 10:35 PM EDT 07/21/2017 10:40 PM EDT Narrative Resulting Agency Comment Spec In Lab Sriram Contreras MD CHEMISTRY ORDERABL ES Performing Organization Address [facility] Co de Phone Number [facility] [place] [address] * (ABNORMAL) Basic Metabolic Panel (non-fasting) (07/21/2017 10:35 PM EDT) Glucose Lvl 135 65 - 199 mg/dL [facility] Comment:Diabetes: >=200 mg/d L plus symptoms BUN 23(H) 10 - 20 mg/dL [facility] Creatinine 0.88 0.80 - 1.50 mg/dL [facility] Comment: Please note that the pediatric reference intervals supplied above were not validated at [facility]. Results from pediatric patients should be interpreted in conjunction to the patient's age, height and muscle mass. Sodium 144 135 - 145 mmol/L [facility] Potassium 4.0 3.5 - 5.0 mmol/L [facility] Comment: Please note: ??Patients with WBC >100,000 may have falsely elevated Potassium levels. ??For accurate Potassium quantification in these patients send serum separator tube (gold top) for subsequent determinations. ??Contact the Clinical Chemistry Laboratory if there are any questions. Chloride 107 98 - 107 mmol/L [facility] CO2 25 22 - 31 mmol/L [facility] Anion Gap 12 5 - 15 mmol/L [facility] Calcium 8.7 8.5 - 10.5 mg/dL [facility] Estimated GFR >60 >=60 [place] [...] the following links into your internet browser. [email or web address] Blood specimen (specimen) 07/21/2017 10:35 PM EDT 07/21/2017 10:40 PM EDT Narrative Resulting Agency Comment Spec In Lab Sriram Contreras MD CHEMISTRY ORDERABL ES [facility] [place] [address] * (ABNORMAL) APTT (07/21/2017 9:10 PM EDT) PTT 87(H) 25 - 35 sec [facility] Comment: The recommended therapeutic range for full dose, unfractionated heparin at [facility] is 80 ? 114 seconds. The use of the anti-Xa (heparin) level rather than the PTT is recommended for monitoring anticoagulation intensity in critically ill patients receiving unfractionated heparin by continuous IV infusion. Blood specimen (specimen) 07/21/2017 9:10 PM EDT 07/21/2017 9:17 PM EDT Narrative Resulting Agency Comment Spec In Lab Sriram Contreras MD HEMATOLOGY ORDERAB LES Performing Organization Address [facility] Co de Phone Number [facility] [place] [address] * POCT Glucose (07/21/2017 7:49 PM EDT) POC Glucose 117 65 - 199 mg/dL [facility] Comment: Supplemental ranges: <140 mg/dL before meals <180 mg/dL all other times of the day Blood specimen (specimen) 07/21/2017 7:49 PM EDT 07/21/2017 7:49 PM EDT Sriram Cnotreras MD POINT OF CARE TEST ORDERABLES Performing Organization Address [facility] Co de Phone Number [facility] [place] [address] * POCT Glucose (07/21/2017 4:10 PM EDT) POC Glucose 116 65 - 199 mg/dL [facility] Comment: Supplemental ranges: <140 mg/dL before meals <180 mg/dL all other times of the day Blood specimen (specimen) 07/21/2017 4:10 PM EDT 07/21/2017 4:10 PM EDT Sriram Contreras MD POINT OF CARE TEST ORDERABLES Performing Organization Address [facility] Co de Phone Number [facility] [place] [address] * (ABNORMAL) APTT (07/21/2017 4:10 PM EDT) PTT 78(H) 25 - 35 sec [facility] Comment: The recommended therapeutic range for full dose, unfractionated heparin at [facility] is 80 ? 114 seconds. The use of the anti-Xa (heparin) level rather than the PTT is recommended for monitoring anticoagulation intensity in critically ill patients receiving unfractionated heparin by continuous IV infusion. Blood specimen (specimen) 07/21/2017 4:10 PM EDT 07/21/2017 4:28 PM EDT Narrative Resulting Agency Comment Spec In Lab Sriram Contreras MD HEMATOLOGY ORDERAB LES Performing Organization Address [facility] Co de Phone Number [facility] [place] [address] * POCT Glucose (07/21/2017 12:04 PM EDT) [facility] POC Glucose 138 65 - 199 mg/dL [facility] Comment: Supplemental ranges: <140 mg/dL before meals <180 mg/dL all other times of the day Blood specimen (specimen) 07/21/2017 12:04 PM EDT 07/21/2017 12:04 PM EDT Sriram Contreras MD POINT OF CARE TEST ORDERABLES Performing Organization Address [facility] Co de Phone Number [facility] [place] [address] * C. Difficile Screen (07/21/2017 9:00 AM [...] - GEN ERAL ORDERABLES Performing Organization Address [facility] Co de Phone Number [facility] [place] [address] * Potassium (07/21/2017 8:30 AM EDT) Potassium 3.8 3.5 - 5.0 mmol/L [facility] Comment: Please note: ??Patients with [...] MD CHEMISTRY ORDERABL ES Performing Organization Address [facility] Co de Phone Number [facility] [place] [address] * (ABNORMAL) APTT (07/21/2017 8:30 AM EDT) PTT 63(H) 25 - 35 sec [facility] Comment: The recommended therapeutic range for full dose, unfractionated heparin at [facility] is 80 ? 114 seconds. The use of the anti-Xa (heparin) level rather than the PTT is recommended for monitoring anticoagulation intensity in critically ill patients receiving unfractionated heparin by continuous IV infusion. Blood specimen (specimen) 07/21/2017 8:30 AM EDT 07/21/2017 8:40 AM EDT Narrative Resulting Agency Comment Spec In Lab Sriram Contreras MD HEMATOLOGY ORDERAB LES Performing Organization Address [facility] Co de Phone Number [facility] [place] [place] [address] * POCT Glucose (07/21/2017 8:24 AM EDT) [facility] POC Glucose 131 65 - 199 mg/dL [facility] Comment: Supplemental ranges: <140 mg/dL before meals <180 mg/dL all other times of the day Blood specimen (specimen) 07/21/2017 8:24 AM EDT 07/21/2017 8:24 AM EDT Sriram Contreras MD POINT OF CARE TEST ORDERABLES Performing Organization Address City/State/[facility] Co de Phone Number [facility] [place] [address] * (ABNORMAL) BLOOD GAS 2 ARTERIAL (07/21/2017 7:42 AM EDT) [facility] pH Art 7.44 7.35 - 7.45 [facility] pCO2 Art 37 35 - 45 mmHg [facility] pO2 Art 72(L) 85 - 104 mmHg [facility] HCO3 Art 24.5 20.0 - 26.0 mmol/L [facility] BE Art 0.3 -3.0 - 3.0 mmol/L [facility] Hgb Blood Gas 14.0 13.7 - 16.5 gm/dL [facility] O2HB Art 93.8(L) 94.0 - 97.0 % [facility] COHB Art 0.3 % [facility] Comment: Nonsmokers: 0.5-1.5% COHB Smokers: Variable, but usually less than 10% Toxic: 20-30% COHB Lethal: Greater than 60% COHB METHB Art 0.5 <=1.5 % [facility] Na Whole Blood 143 135 - 145 mmol/L [facility] K Whole Blood 4.0 3.5 - 5.0 mmol/L [facility] Comment: Please note: Patients with WBC >100,000 may have falsely elevated Potassium levels. Contact the Clinical Chemistry Laboratory if there are any questions. ICa Whole Blood 1.22 1.15 - 1.33 mmol/L [facility] Comment: Note: ??Total bilirubin higher than 20 mg/dL may lead to falsely low ionized calcium. CL Whole Blood 111(H) 98 - 107 mmol/L [facility] Gluc Whole Bld 148 65 - 199 mg/dL [facility] Comment:Diabetes: >=200 mg/d L plus symptoms. Lactate WB 1.5 0.5 - 2.2 mmol/L [facility] FIO2 Art 40 % [facility] PF Ratio Art 180 [facility] Blood specimen (specimen) 07/21/2017 7:42 AM EDT 07/21/2017 7:42 AM EDT Sriram Contreras MD CHEMISTRY ORDERABL ES Performing Organization Address [facility] de Phone Number [facility] [place] [address] * POCT Glucose (07/21/2017 3:21 AM EDT) POC Glucose 116 65 - 199 mg/dL [facility] Comment: Supplemental ranges: <140 mg/dL before meals <180 mg/dL all other times of the day Blood specimen (specimen) 07/21/2017 3:21 AM EDT 07/21/2017 3:21 AM EDT Sriram Contreras MD POINT OF CARE TEST ORDERABLES Performing Organization Address [facility] Co de Phone Number [facility] [place] [address] * Potassium (07/21/2017 3:20 AM EDT) Potassium 4.0 3.5 - 5.0 mmol/L [facility] Comment: Please note: ??Patients with [...] ORDERABL ES Performing Organization Address [facility] Co de Phone Number [facility] [place] [address] * (ABNORMAL) APTT (07/21/2017 1:05 AM EDT) PTT 42(H) 25 - 35 sec [facility] Comment: The recommended therapeutic range for full dose, unfractionated heparin at [facility] is 80 ? 114 seconds. The use of the anti-Xa (heparin) level rather than the PTT is recommended for monitoring anticoagulation intensity in critically ill patients receiving unfractionated heparin by continuous IV infusion. Blood specimen (specimen) 07/21/2017 1:05 AM EDT 07/21/2017 1:08 AM EDT Narrative Resulting Agency Comment Spec In Lab Sriram Contreras MD HEMATOLOGY ORDERAB LES Performing Organization Address [facility] Co de Phone Number [facility] [place] [address] * (ABNORMAL) Differential, Automated (07/21/2017 12:25 AM EDT) Neutrophils % 75.8 % [facility] Neutr Abs (ANC) 7.59(H) 1.70 - 6.10 x10(3)/mc L [facility] Lymphocytes % 12.8 % [facility] Lymphocytes Abs 1.3 0.9 - 3.2 x10(3)/mc L [facility] Monocytes % 9.0 % [facility] Monocyte Abs 0.9 0.3 - 0.9 x10(3)/mc L [facility] Eosinophils % 1.1 % [facility] Eosinophils Abs 0.1 0.0 - 0.4 x10(3)/mc L [facility] Basophils % 0.3 % [facility] Basophils Abs 0.0 0.0 - 0.1 x10(3)/mc L [facility] Immature Gran % 1.00 % [facility] Comment: Immature granulocytes(IG's)percentage and absolute count will include metamyelocytes, myelocytes, and promyelocytes. Blood smears from CBCs yielding IG's will be scanned manually for concordance. If this scan disagrees with the automated IG or if promyelocytes are noted, a manual differential will be performed. Patti Gran Abs 0.10(H) 0.00 - 0.04 x10(3)/mc L [facility] Blood specimen (specimen) 07/21/2017 12:25 AM EDT 07/21/2017 12:48 AM EDT Narrative Resulting Agency Comment Spec In Lab Sriram Contreras MD HEMATOLOGY ORDERAB LES Performing Organization Address City/State/[facility] Co de Phone Number [facility] [place] [address] * (ABNORMAL) Hemogram (07/21/2017 12:25 AM EDT) WBC 10.0(H) 4.0 - 9.5 x10(3)/[facility] LABORAT[facility] RBC 4.24(L) 4.58 - 5.54 x10(6)/[facility] Hemoglobin 13.2(L) 13.7 - 16.5 gm/dL [facility] Hematocrit 39.4(L) 40.5 - 48.5 % [facility] MCV 92.9 82.9 - 93.1 fL [facility] MCH 31.1 27.5 - 32.1 pg [facility] MCHC 33.5 32.0 - 35.7 gm/dL [facility] Platelets 163 145 - 357 x10(3)/[facility] RDWSD 48.0(H) 36.0 - 45.0 fL [facility] RDWCV 14.1(H) 11.4 - 13.8 % [facility] MPV 10.2 7.6 - 12.9 fL [facility] nRBC % Auto 0.0 % [facility] nRBC Abs Auto 0.000 0.000 - 0.000 x10(3)/mcL [facility] Blood specimen (specimen) 07/21/2017 12:25 AM EDT 07/21/2017 12:48 AM EDT Narrative Resulting Agency Comment Spec In Lab Sriram Contreras MD HEMATOLOGY ORDERAB LES [facility] [place] [place] [address] * (ABNORMAL) Basic Metabolic Panel (non-fasting) (07/21/2017 12:25 AM EDT) Glucose Lvl 132 65 - 199 mg/dL [facility] Comment:Diabetes: >=200 mg/d L plus symptoms BUN 22(H) 10 - 20 mg/dL [facility] Creatinine 0.79(L) 0.80 - 1.50 mg/dL [facility] Comment: Please note that the pediatric reference intervals supplied above were not validated at [facility]. Results from pediatric patients should be interpreted in conjunction to the patient's age, height and muscle mass. Sodium 146(H) 135 - 145 mmol/L [facility] Potassium 3.8 3.5 - 5.0 mmol/L [facility] Comment: Please note: ??Patients with WBC >100,000 may have falsely elevated Potassium levels. ??For accurate Potassium quantification in these patients send serum separator tube (gold top) for subsequent determinations. ??Contact the Clinical Chemistry Laboratory if there are any questions. Chloride 110(H) 98 - 107 mmol/L [facility] CO2 25 22 - 31 mmol/L [facility] Anion Gap 11 5 - 15 mmol/L [facility] Calcium 8.5 8.5 - 10.5 mg/dL [facility] Estimated GFR >60 >=60 [place] [...] the following links into your internet browser. [email or web address] Blood specimen (specimen) 07/21/2017 12:25 AM EDT 07/21/2017 12:48 AM EDT Narrative Resulting Agency Comment Spec In Lab Sriram Contreras MD CHEMISTRY ORDERABL ES Performing Organization Address City/State/[facility] Co de Phone Number [facility] [place] [address] * (ABNORMAL) BLOOD GAS 2 ARTERIAL (07/21/2017 12:21 AM EDT) pH Art 7.44 7.35 - 7.45 [facility] pCO2 Art 37 35 - 45 mmHg [facility] pO2 Art 70(L) 85 - 104 mmHg [facility] HCO3 Art 24.1 20.0 - 26.0 mmol/L [facility] BE Art 0.1 -3.0 - 3.0 mmol/L [facility] Hgb Blood Gas 14.3 13.7 - 16.5 gm/dL [facility] O2HB Art 92.8(L) 94.0 - 97.0 % [facility] COHB Art 0.0 % [facility] Comment: Nonsmokers: 0.5-1.5% COHB Smokers: Variable, but usually less than 10% Toxic: 20-30% COHB Lethal: Greater than 60% COHB METHB Art 0.4 <=1.5 % [facility] Na Whole Blood 145 135 - 145 mmol/L [facility] K Whole Blood 3.9 3.5 - 5.0 mmol/L [facility] Comment: Please note: Patients with WBC >100,000 may have falsely elevated Potassium levels. Contact the Clinical Chemistry Laboratory if there are any questions. ICa Whole Blood 1.21 1.15 - 1.33 mmol/L [facility] Comment: Note: ??Total bilirubin higher than 20 mg/dL may lead to falsely low ionized calcium. CL Whole Blood 110(H) 98 - 107 mmol/L [facility] Gluc Whole Bld 132 65 - 199 mg/dL [facility] Comment:Diabetes: >=200 mg/d L plus symptoms. Lactate WB 1.1 0.5 - 2.2 mmol/L [facility] FIO2 Art 40 % [facility] PF Ratio Art 175 [facility] Temp Art 37.8 Celsius [facility] Blood specimen (specimen) 07/21/2017 12:21 AM EDT 07/21/2017 12:21 AM EDT Sriram Contreras MD CHEMISTRY ORDERABL ES Performing Organization Address [facility] Co de Phone Number [facility] [place] [place] [address] * POCT Glucose (07/21/2017 12:00 AM EDT) POC Glucose 119 65 - 199 mg/dL [facility] Comment: Supplemental ranges: <140 mg/dL before meals <180 mg/dL all other times of the day Blood specimen (specimen) 07/21/2017 07/21/2017 Sriram Contreras MD POINT OF CARE TEST ORDERABLES Performing Organization Address [facility] Co de Phone Number [facility] [place] [place] [address] * Potassium (07/20/2017 9:50 PM EDT) Potassium 4.1 3.5 - 5.0 mmol/L [facility] Comment: Please note: ??Patients with [...] ORDERABL ES Performing Organization Address [facility] Co de Phone Number [facility] [place] [address] * EKG 12 Lead (07/20/2017 8:40 PM EDT) Ventricular rate 77 BPM MUSE SYSTEM Atrial Rate 394 BPM MUSE SYSTEM QRS Duration 86 ms MUSE SYSTEM Q-T Interval 396 ms MUSE SYSTEM QTC Calculated (Bezet) 448 ms MUSE SYSTEM Calculated R [place] 73 degrees MUSE SYSTEM Calculated T [place] 127 degrees MUSE SYSTEM INTERPRETATION Atrial fibrillation [...] Aguero APRN ECG ORDERABLES Performing Organization Address [facility] Co de Phone Number MUSE SYSTEM * POCT Glucose (07/20/2017 7:28 PM EDT) POC Glucose 126 65 - 199 mg/dL [facility] Comment: Supplemental ranges: <140 mg/dL before meals <180 mg/dL all other times of the day Blood specimen (specimen) 07/20/2017 7:28 PM EDT 07/20/2017 7:28 PM EDT Sriram Contreras MD POINT OF CARE TEST ORDERABLES Performing Organization Address City/[facility]/ZIP Co de Phone Number [facility] [place] [place] [address] * (ABNORMAL) Differential, Automated (07/20/2017 5:15 PM EDT) Neutrophils % 79.7 % [facility] Neutr Abs (ANC) 8.01(H) 1.70 - 6.10 x10(3)/[facility] LAB[facility] Lymphocytes % 10.4 % [facility] Lymphocytes Abs 1.0 0.9 - 3.2 x10(3)/[facility] LABOR[facility] Monocytes % 8.0 % [facility] Monocyte Abs 0.8 0.3 - 0.9 x10(3)/[facility] LABOR[facility]ORY Eosinophils % 0.7 % [facility] Eosinophils Abs 0.1 0.0 - 0.4 x10(3)/[facility] LABORATORY Basophils % 0.2 % [facility] Basophils Abs 0.0 0.0 - 0.1 x10(3)/[facility] LABOR[facility] Immature Gran % 1.00 % [facility] Comment: Immature granulocytes(IG's)percentage and absolute count will include metamyelocytes, myelocytes, and promyelocytes. Blood smears from CBCs yielding IG's will be scanned manually for concordance. If this scan disagrees with the automated IG or if promyelocytes are noted, a manual differential will be performed. Patti Gran Abs 0.10(H) 0.00 - 0.04 x10(3)/ L [facility] Blood specimen (specimen) 07/20/2017 5:15 PM EDT 07/20/2017 5:26 PM EDT Narrative Resulting Agency Comment Spec In Lab Sriram Contreras MD HEMATOLOGY ORDERAB LES Performing Organization Address City/[facility]/ZIP Co de Phone Number [facility] [place] [place] [address] * (ABNORMAL) Hemogram (07/20/2017 5:15 PM EDT) WBC 10.0(H) 4.0 - 9.5 x10(3)/[facility] LABORATORY RBC 4.28(L) 4.58 - 5.54 x10(6)/[facility] Hemoglobin 13.3(L) 13.7 - 16.5 gm/dL [facility] Hematocrit 39.9(L) 40.5 - 48.5 % [facility] MCV 93.2(H) 82.9 - 93.1 [facility] LAB[facility]ATORY MCH 31.1 27.5 - 32.1 pg [facility] MCHC 33.3 32.0 - 35.7 gm/dL [facility] Platelets 163 145 - 357 x10(3)/[facility] RDWSD 47.7(H) 36.0 - 45.0 [facility] RDWCV 14.1(H) 11.4 - 13.8 % [facility] MPV 10.1 7.6 - 12.9 [facility] LAB[facility]ATORY nRBC % Auto 0.0 % [facility] nRBC Abs Auto 0.000 0.000 - 0.000 x10(3)/[facility] LAB[facility]AT[facility] Blood specimen (specimen) 07/20/2017 5:15 PM EDT 07/20/2017 5:26 PM EDT Narrative Resulting Agency Comment Spec In Lab Sriram Contreras MD HEMATOLOGY ORDERAB LES [facility] [place] [place] [address] * APTT (07/20/2017 5:15 PM EDT) PTT 28 25 - 35 sec [facility] Comment: The recommended therapeutic range for full dose, unfractionated heparin at [facility] is 80 ? 114 seconds. The use of the anti-Xa (heparin) level rather than the PTT is recommended for monitoring anticoagulation intensity in critically ill patients receiving unfractionated heparin by continuous IV infusion. Blood specimen (specimen) 07/20/2017 5:15 PM EDT 07/20/2017 5:26 PM EDT Narrative Resulting Agency Comment Spec In Lab Sriram Contreras MD HEMATOLOGY ORDERAB LES Performing Organization Address [facility] Co de Phone Number [facility] [place] [address] * Magnesium (07/20/2017 4:50 PM EDT) Magnesium 1.00 0.69 - 1.07 mmol/L [facility] Blood specimen (specimen) 07/20/2017 4:50 PM EDT 07/20/2017 5:10 PM EDT Narrative Resulting Agency Comment Spec In Lab Sylvia Vaughn MD CHEMISTRY ORDERABLES Performing Organization Address [facility] Co de Phone Number [facility] [place] [address] * (ABNORMAL) Basic Metabolic Panel (non-fasting) (07/20/2017 4:50 PM EDT) Glucose Lvl 143 65 - 199 mg/dL [facility] Comment:Diabetes: >=200 mg/d L plus symptoms BUN 23(H) 10 - 20 mg/dL [facility] Creatinine 0.85 0.80 - 1.50 mg/dL [facility] Comment: Please note that the pediatric reference intervals supplied above were not validated at [facility]. Results from pediatric patients should be interpreted in conjunction to the patient's age, height and muscle mass. Sodium 146(H) 135 - 145 mmol/L [facility] Potassium 3.9 3.5 - 5.0 mmol/L [facility] Comment: Please note: ??Patients with WBC >100,000 may have falsely elevated Potassium levels. ??For accurate Potassium quantification in these patients send serum separator tube (gold top) for subsequent determinations. ??Contact the Clinical Chemistry Laboratory if there are any questions. Chloride 110(H) 98 - 107 mmol/L [facility] CO2 25 22 - 31 mmol/L [facility] Anion Gap 11 5 - 15 mmol/L [facility] Calcium 8.5 8.5 - 10.5 mg/dL [facility] Estimated GFR >60 >=60 [place] [...] the following links into your internet browser. [email or web address] Blood specimen (specimen) 07/20/2017 4:50 PM EDT 07/20/2017 5:10 PM EDT Narrative Resulting Agency Comment Spec In Lab Sylvia Vaughn MD CHEMISTRY ORDERABLES Performing Organization Address City/[facility]/ZIP Co de Phone Number [facility] [place] [place] [address] * POCT Glucose (07/20/2017 3:41 PM EDT) POC Glucose 138 65 - 199 mg/dL [facility] Comment: Supplemental ranges: <140 mg/dL before meals <180 mg/dL all other times of the day Blood specimen (specimen) 07/20/2017 3:41 PM EDT 07/20/2017 3:41 PM EDT Sriram Contreras MD POINT OF CARE TEST ORDERABLES [facility] [place] [place] [address] * CTA Chest for Pulmonary Embolus w [...] suggestive of normal upper respiratory yung (A) [facility] Gram Stain Many White Blood Cells seen Few squamous epithelial cells seen Many Gram Negative Rods seen Many mixed bacterial morphotypes suggestive of normal upper respiratory yung (A) [facility] Organism Enterobacter aerogenes(A) [facility] Organism Gram Negative Rods(A) [facility] Specimen from trachea obtained by [...] - GEN ERAL ORDERABLES Performing Organization Address City/[facility]/ZIP Co de Phone Number [facility] [place] [place] [address] * POCT Glucose (07/20/2017 11:45 AM EDT) [facility] POC Glucose 125 65 - 199 mg/dL [facility] Comment: Supplemental ranges: <140 mg/dL before meals <180 mg/dL all other times of the day Blood specimen (specimen) 07/20/2017 11:45 AM EDT 07/20/2017 11:45 AM EDT Sriram Contreras MD POINT OF CARE TEST ORDERABLES Performing Organization Address City/[facility]/ZIP Co de Phone Number [facility] [place] [place] [address] * (ABNORMAL) BLOOD GAS 2 ARTERIAL (07/20/2017 11:43 AM EDT) pH Art 7.45 7.35 - 7.45 [facility] pCO2 Art 35 35 - 45 mmHg [facility] pO2 Art 57(L) 85 - 104 mmHg [facility] HCO3 Art 23.9 20.0 - 26.0 mmol/L [facility] BE Art 0.1 -3.0 - 3.0 mmol/L [facility] Hgb Blood Gas 14.6 13.7 - 16.5 gm/dL [facility] O2HB Art 89.5(L) 94.0 - 97.0 % [facility] COHB Art 0.0 % [facility] Comment: Nonsmokers: 0.5-1.5% COHB Smokers: Variable, but usually less than 10% Toxic: 20-30% COHB Lethal: Greater than 60% COHB METHB Art 0.5 <=1.5 % [facility] Na Whole Blood 145 135 - 145 mmol/L [facility] K Whole Blood 3.9 3.5 - 5.0 mmol/L [facility] Comment: Please note: Patients with WBC >100,000 may have falsely elevated Potassium levels. Contact the Clinical Chemistry Laboratory if there are any questions. ICa Whole Blood 1.23 1.15 - 1.33 mmol/L [facility] Comment: Note: ??Total bilirubin higher than 20 mg/dL may lead to falsely low ionized calcium. CL Whole Blood 110(H) 98 - 107 mmol/L [facility] Gluc Whole Bld 136 65 - 199 mg/dL [facility] Comment:Diabetes: >=200 mg/d L plus symptoms. Lactate WB 1.3 0.5 - 2.2 mmol/L [facility] FIO2 Art 35 % [facility] PF Ratio Art 163 [facility] Temp Art 37.6 Celsius [facility] Blood specimen (specimen) 07/20/2017 11:43 AM EDT 07/20/2017 11:43 AM EDT Sriram Contreras MD CHEMISTRY ORDERABL ES [facility] [place] [address] * Potassium (07/20/2017 10:15 AM EDT) Potassium 4.1 3.5 - 5.0 mmol/L [facility] Comment: Please note: ??Patients with [...] Lab Sriram Contreras MD CHEMISTRY ORDERABL ES [facility] [place] [place] [address] * XR Chest PA or AP 1 [...] edema or developing ARDS. Sriram Contreras MD G DX ORDERABLES * INTUBATION (07/20/2017 7:51 AM EDT) Narrative Roberto Betancur MD - 07/20/2017 7:51 AM EDT Hedy Cat, DO ? 07/19/2017 ??5:56 PM Intubation Procedure Note Reason for Intubation: ?Hypoxemia. Procedure Diagnosis: hypoxic respiratory failure Location of Procedure: ICU [facility]. Risks and Benefits: The risks and benefits [...] * POCT Glucose (07/20/2017 7:29 AM EDT) [facility] POC Glucose 134 65 - 199 mg/dL [facility] Comment: Supplemental ranges: <140 mg/dL before meals <180 mg/dL all other times of the day Blood specimen (specimen) 07/20/2017 7:29 AM EDT 07/20/2017 7:29 AM EDT Sriram Contreras MD POINT OF CARE TEST ORDERABLES Performing Organization Address [facility] de Phone Number [facility] [place] [place] [address] * Potassium (07/20/2017 7:28 AM EDT) [facility] Potassium 4.0 3.5 - 5.0 mmol/L [facility] Comment: Please note: ??Patients with [...] ORDERABL ES Performing Organization Address [facility] Co de Phone Number [facility] [place] [place] [address] * (ABNORMAL) Differential, Automated (07/20/2017 3:15 AM EDT) [facility] Neutrophils % 83.6 % [facility] Neutr Abs (ANC) 8.93(H) 1.70 - 6.10 x10(3)/mc L [facility] Lymphocytes % 9.1 % [facility] Lymphocytes Abs 1.0 0.9 - 3.2 x10(3)/[facility] LABORATORY Monocytes % 6.3 % [facility] Monocyte Abs 0.7 0.3 - 0.9 x10(3)/[facility] LABORATORY Eosinophils % 0.1 % [facility] Eosinophils Abs 0.0 0.0 - 0.4 x10(3)/[facility] LABORATORY Basophils % 0.2 % [facility] Basophils Abs 0.0 0.0 - 0.1 x10(3)/[facility] LABORATORY Immature Gran % 0.70 % [facility] Comment: Immature granulocytes(IG's)percentage and absolute count will include metamyelocytes, myelocytes, and promyelocytes. Blood smears from CBCs yielding IG's will be scanned manually for concordance. If this scan disagrees with the automated IG or if promyelocytes are noted, a manual differential will be performed. Patti Gran Abs 0.07(H) 0.00 - 0.04 x10(3)/[facility] LABORATORY Blood specimen (specimen) 07/20/2017 3:15 AM EDT 07/20/2017 3:58 AM EDT Narrative Resulting Agency Comment Spec In Lab Sriram Contreras MD HEMATOLOGY ORDERAB LES Performing Organization Address City/State/[facility] Co de Phone Number [facility] [place] [address] * (ABNORMAL) Hemogram (07/20/2017 3:15 AM EDT) WBC 10.7(H) 4.0 - 9.5 x10(3)/[facility] LABORATORY RBC 4.40(L) 4.58 - 5.54 x10(6)/[facility] LABORATORY Hemoglobin 13.7 13.7 - 16.5 gm/dL [facility] Hematocrit 39.6(L) 40.5 - 48.5 % [facility] MCV 90.0 82.9 - 93.1 fL [facility] MCH 31.1 27.5 - 32.1 pg [facility] MCHC 34.6 32.0 - 35.7 gm/dL [facility] Platelets 186 145 - 357 x10(3)/[facility] RDWSD 45.8(H) 36.0 - 45.0 fL [facility] RDWCV 13.9(H) 11.4 - 13.8 % [facility] MPV 9.9 7.6 - 12.9 [facility] LABORATORY nRBC % Auto 0.0 % [facility] nRBC Abs Auto 0.000 0.000 - 0.000 x10(3)/[facility] Blood specimen (specimen) 07/20/2017 3:15 AM EDT 07/20/2017 3:58 AM EDT Narrative Resulting Agency Comment Spec In Lab Sriram Contreras MD HEMATOLOGY ORDERAB LES [facility] [place] [phone] * (ABNORMAL) Basic Metabolic Panel (non-fasting) (07/20/2017 3:15 AM EDT) Glucose Lvl 126 65 - 199 mg/dL [facility] Comment:Diabetes: >=200 mg/d L plus symptoms BUN 23(H) 10 - 20 mg/dL [facility] Creatinine 0.97 0.80 - 1.50 mg/dL [facility] Comment: Please note that the pediatric reference intervals supplied above were not validated at [facility]. Results from pediatric patients should be interpreted in conjunction to the patient's age, height and muscle mass. Sodium 143 135 - 145 mmol/L [facility] Potassium 3.9 3.5 - 5.0 mmol/L [facility] Comment: Please note: ??Patients with WBC >100,000 may have falsely elevated Potassium levels. ??For accurate Potassium quantification in these patients send serum separator tube (gold top) for subsequent determinations. ??Contact the Clinical Chemistry Laboratory if there are any questions. Chloride 106 98 - 107 mmol/L [facility] CO2 23 22 - 31 mmol/L [facility] Anion Gap 14 5 - 15 mmol/L [facility] Calcium 8.5 8.5 - 10.5 mg/dL [facility] Estimated GFR >60 >=60 [place] [...] the following links into your internet browser. [email or web address] Blood specimen (specimen) 07/20/2017 3:15 AM EDT 07/20/2017 3:58 AM EDT Narrative Resulting Agency Comment Spec In Lab Sriram Contreras MD CHEMISTRY ORDERABL ES Performing Organization Address [facility] Co de Phone Number [facility] [place] [address] * POCT Glucose (07/20/2017 3:13 AM EDT) POC Glucose 114 65 - 199 mg/dL [facility] Comment: Supplemental ranges: <140 mg/dL before meals <180 mg/dL all other times of the day Blood specimen (specimen) 07/20/2017 3:13 AM EDT 07/20/2017 3:13 AM EDT Sriram Contreras MD POINT OF CARE TEST ORDERABLES Performing Organization Address City/[facility]/ZIP Co de Phone Number [facility] [place] [place] [address] * (ABNORMAL) BLOOD GAS 2 ARTERIAL (07/19/2017 11:36 PM EDT) pH Art 7.51(H) 7.35 - 7.45 [facility] pCO2 Art 29(L) 35 - 45 mmHg [facility] pO2 Art 77(L) 85 - 104 mmHg [facility] HCO3 Art 22.2 20.0 - 26.0 mmol/L [facility] BE Art -0.8 -3.0 - 3.0 mmol/L [facility] Hgb Blood Gas 14.7 13.7 - 16.5 gm/dL [facility] O2HB Art 94.7 94.0 - 97.0 % [facility] COHB Art 0.3 % [facility] Comment: Nonsmokers: 0.5-1.5% COHB Smokers: Variable, but usually less than 10% Toxic: 20-30% COHB Lethal: Greater than 60% COHB METHB Art 0.7 <=1.5 % [facility] Na Whole Blood 142 135 - 145 mmol/L [facility] K Whole Blood 3.8 3.5 - 5.0 mmol/L [facility] Comment: Please note: Patients with WBC >100,000 may have falsely elevated Potassium levels. Contact the Clinical Chemistry Laboratory if there are any questions. ICa Whole Blood 1.19 1.15 - 1.33 mmol/L [facility] Comment: Note: ??Total bilirubin higher than 20 mg/dL may lead to falsely low ionized calcium. CL Whole Blood 109(H) 98 - 107 mmol/L [facility] Gluc Whole Bld 125 65 - 199 mg/dL [facility] Comment:Diabetes: >=200 mg/d L plus symptoms. Lactate WB 1.6 0.5 - 2.2 mmol/L [facility] FIO2 Art 50 % [facility] PF Ratio Art 154 [facility] Blood specimen (specimen) 07/19/2017 11:36 PM EDT 07/19/2017 11:36 PM EDT Sriram Contreras MD CHEMISTRY ORDERABL ES Performing Organization Address [facility] Co de Phone Number [facility] [place] [address] * POCT Glucose (07/19/2017 11:31 PM EDT) POC Glucose 110 65 - 199 mg/dL [facility] Comment: Supplemental ranges: <140 mg/dL before meals <180 mg/dL all other times of the day Blood specimen (specimen) 07/19/2017 11:31 PM EDT 07/19/2017 11:31 PM EDT Sriram Contreras MD POINT OF CARE TEST ORDERABLES Performing Organization Address [facility] de Phone Number [facility] [place] [address] * Potassium (07/19/2017 11:30 PM EDT) Potassium 3.9 3.5 - 5.0 mmol/L [facility] Comment: Please note: ??Patients with [...] MD CHEMISTRY ORDERABL ES Performing Organization Address [facility] Co de Phone Number [facility] [place] [address] * POCT Glucose (07/19/2017 7:45 PM EDT) POC Glucose 100 65 - 199 mg/dL [facility] Comment: Supplemental ranges: <140 mg/dL before meals <180 mg/dL all other times of the day Blood specimen (specimen) 07/19/2017 7:45 PM EDT 07/19/2017 7:45 PM EDT Sriram Contreras MD POINT OF CARE TEST ORDERABLES Performing Organization Address [facility] Co de Phone Number [facility] [place] [address] * Blood culture (07/19/2017 7:00 PM EDT) Blood Culture No growth at 5 days. [facility] Blood specimen (specimen) STRUCTURE OF LEFT WRIST REGION / Unknown 07/19/2017 7:00 PM EDT 07/19/2017 7:50 PM EDT Narrative Resulting Agency Comment Spec In Lab Sriram Contreras MD MICROBIOLOGY - BLO OD ORDERABLES Performing Organization Address [facility] Co de Phone Number [facility] [place] [place] [address] * Blood culture (07/19/2017 6:50 PM EDT) Blood Culture No growth at 5 days. [facility] Blood specimen (specimen) STRUCTURE OF RIGHT WRIST REGION / Unknown 07/19/2017 6:50 PM EDT 07/19/2017 7:51 PM EDT Narrative Resulting Agency Comment Spec In Lab Sriram Contreras MD MICROBIOLOGY - BLO OD ORDERABLES Performing Organization Address [facility] Co de Phone Number [facility] [place] [address] * XR Chest PA or AP 1 [...] EDT) pH Art 7.49(H) 7.35 - 7.45 [facility] pCO2 Art 32(L) 35 - 45 mmHg [facility] pO2 Art 66(L) 85 - 104 mmHg [facility] HCO3 Art 23.2 20.0 - 26.0 mmol/L [facility] BE Art -0.2 -3.0 - 3.0 mmol/L [facility] Hgb Blood Gas 15.5 13.7 - 16.5 gm/dL [facility] O2HB Art 93.1(L) 94.0 - 97.0 % [facility] COHB Art 0.4 % [facility] Comment: Nonsmokers: 0.5-1.5% COHB Smokers: Variable, but usually less than 10% Toxic: 20-30% COHB Lethal: Greater than 60% COHB METHB Art 0.6 <=1.5 % [facility] Na Whole Blood 158(H) 135 - 145 mmol/L [facility] K Whole Blood 4.0 3.5 - 5.0 mmol/L [facility] Comment: Please note: Patients with WBC >100,000 may have falsely elevated Potassium levels. Contact the Clinical Chemistry Laboratory if there are any questions. ICa Whole Blood 1.14(L) 1.15 - 1.33 mmol/L [facility] Comment: Note: ??Total bilirubin higher than 20 mg/dL may lead to falsely low ionized calcium. CL Whole Blood 120(H) 98 - 107 mmol/L [facility] Gluc Whole Bld 116 65 - 199 mg/dL [facility] Comment:Diabetes: >=200 mg/d L plus symptoms. Lactate WB 1.6 0.5 - 2.2 mmol/L [facility] FIO2 Art 100 % [facility] PF Ratio Art 66 [facility] Blood specimen (specimen) 07/19/2017 5:12 PM EDT 07/19/2017 5:12 PM EDT Sriram Contreras MD CHEMISTRY ORDERABL ES Performing Organization Address [facility] Co de Phone Number [facility] [place] [place] [address] * EKG 12 Lead (07/19/2017 4:55 PM EDT) Ventricular rate 85 BPM MUSE SYSTEM Atrial Rate 326 BPM MUSE SYSTEM QRS Duration 92 ms MUSE SYSTEM Q-T Interval 388 ms MUSE SYSTEM QTC Calculated (Bezet) 461 ms MUSE SYSTEM Calculated R [place] 65 degrees MUSE SYSTEM Calculated T [place] 4 degrees MUSE SYSTEM INTERPRETATION Atrial fibrillation [...] EDT) Phosphorus 3.0 2.5 - 4.5 mg/dL [facility] Blood specimen (specimen) 07/19/2017 4:50 PM EDT 07/19/2017 5:05 PM EDT Narrative Resulting Agency Comment Spec In Lab Sriram Contreras MD CHEMISTRY ORDERABL ES Performing Organization Address City/[facility]/ZIP Co de Phone Number [facility] [place] [address] * (ABNORMAL) Basic Metabolic Panel (non-fasting) (07/19/2017 4:50 PM EDT) Glucose Lvl 118 65 - 199 mg/dL [facility] Comment:Diabetes: >=200 mg/d L plus symptoms BUN 19 10 - 20 mg/dL [facility] Creatinine 0.79(L) 0.80 - 1.50 mg/dL [facility] Comment: Please note that the pediatric reference intervals supplied above were not validated at [facility]. Results from pediatric patients should be interpreted in conjunction to the patient's age, height and muscle mass. Sodium 144 135 - 145 mmol/L [facility] Potassium 3.5 3.5 - 5.0 mmol/L [facility] Comment: Please note: ??Patients with WBC >100,000 may have falsely elevated Potassium levels. ??For accurate Potassium quantification in these patients send serum separator tube (gold top) for subsequent determinations. ??Contact the Clinical Chemistry Laboratory if there are any questions. Chloride 106 98 - 107 mmol/L [facility] CO2 23 22 - 31 mmol/L [facility] Anion Gap 15 5 - 15 mmol/L [facility] Calcium 8.7 8.5 - 10.5 mg/dL [facility] Estimated GFR >60 >=60 [place] [...] the following links into your internet browser. [email or web address] Blood specimen (specimen) 07/19/2017 4:50 PM EDT 07/19/2017 5:05 PM EDT Narrative Resulting Agency Comment Spec In Lab Sriram Contreras MD CHEMISTRY ORDERABL ES Performing Organization Address [facility] Phone Number [facility] [place] [address] * Magnesium (07/19/2017 4:50 PM EDT) Magnesium 0.86 0.69 - 1.07 mmol/L [facility] Blood specimen (specimen) 07/19/2017 4:50 PM EDT 07/19/2017 5:05 PM EDT Narrative Resulting Agency Comment Spec In Lab Sriram Contreras MD CHEMISTRY ORDERABL ES Performing Organization Address [facility] Phone Number [facility] [place] [address] * POCT Glucose (07/19/2017 3:37 PM EDT) POC Glucose 101 65 - 199 mg/dL [facility] Comment: Supplemental ranges: <140 mg/dL before meals <180 mg/dL all other times of the day Blood specimen (specimen) 07/19/2017 3:37 PM EDT 07/19/2017 3:37 PM EDT Sriram Contreras MD POINT OF CARE TEST ORDERABLES Performing Organization Address [facility] Phone Number [facility] [place] [place] [address] * XR Chest PA or AP 1 [...] POC Glucose 100 65 - 199 mg/dL [facility] Comment: Supplemental ranges: <140 mg/dL before meals <180 mg/dL all other times of the day Blood specimen (specimen) 07/19/2017 12:36 PM EDT 07/19/2017 12:36 PM EDT Sriram Contreras MD POINT OF CARE TEST ORDERABLES [facility] [place] [address] * Potassium (07/19/2017 12:30 PM EDT) Potassium 3.7 3.5 - 5.0 mmol/L [facility] Comment: Please note: ??Patients with [...] Lab Sriram Contreras MD CHEMISTRY ORDERABL ES [facility] [place] [address] * (ABNORMAL) BLOOD GAS 2 ARTERIAL (07/19/2017 12:17 PM EDT) pH Art 7.50(H) 7.35 - 7.45 [facility] pCO2 Art 32(L) 35 - 45 mmHg [facility] pO2 Art 60(L) 85 - 104 mmHg [facility] HCO3 Art 23.7 20.0 - 26.0 mmol/L [facility] BE Art 0.5 -3.0 - 3.0 mmol/L [facility] Hgb Blood Gas 14.8 13.7 - 16.5 gm/dL [facility] O2HB Art 91.1(L) 94.0 - 97.0 % [facility] COHB Art 0.1 % [facility] Comment: Nonsmokers: 0.5-1.5% COHB Smokers: Variable, but usually less than 10% Toxic: 20-30% COHB Lethal: Greater than 60% COHB METHB Art 0.6 <=1.5 % [facility] Na Whole Blood 145 135 - 145 mmol/L [facility] K Whole Blood 3.7 3.5 - 5.0 mmol/L [facility] Comment: Please note: Patients with WBC >100,000 may have falsely elevated Potassium levels. Contact the Clinical Chemistry Laboratory if there are any questions. ICa Whole Blood 1.16 1.15 - 1.33 mmol/L [facility] Comment: Note: ??Total bilirubin higher than 20 mg/dL may lead to falsely low ionized calcium. CL Whole Blood 109(H) 98 - 107 mmol/L [facility] Gluc Whole Bld 115 65 - 199 mg/dL [facility] Comment:Diabetes: >=200 mg/d L plus symptoms. Lactate WB 1.3 0.5 - 2.2 mmol/L [facility] FIO2 Art 45 % [facility] PF Ratio Art 133 [facility] Blood specimen (specimen) 07/19/2017 12:17 PM EDT 07/19/2017 12:17 PM EDT Sriram Contreras MD CHEMISTRY ORDERABL ES Performing Organization Address City/[facility]/ZIP Co de Phone Number [facility] [place] [address] * Potassium (07/19/2017 8:50 AM EDT) Potassium 3.8 3.5 - 5.0 mmol/L [facility] Comment: Please note: ??Patients with [...] MD CHEMISTRY ORDERABL ES Performing Organization Address City/[facility]/ZIP Co de Phone Number [facility] [place] [address] * Folate, serum (07/19/2017 8:50 AM EDT) Folate Lvl 16.6 4.8 - 24.2 ng/mL [facility] Blood specimen (specimen) 07/19/2017 8:50 AM EDT 07/19/2017 9:11 AM EDT Narrative Resulting Agency Comment Spec In Lab Sriram Contreras MD CHEMISTRY ORDERABL ES [facility] [place] [address] * Vitamin B12 (07/19/2017 8:50 AM EDT) Pathologist [facility] Vitamin B-12 468 207 - 974 pg/mL [facility] Blood specimen (specimen) 07/19/2017 8:50 AM EDT 07/19/2017 9:11 AM EDT Narrative Resulting Agency Comment Spec In Lab Sriram Contreras MD CHEMISTRY ORDERABL ES Performing Organization Address [facility]/ZIP Co de Phone Number [facility] [place] [address] * (ABNORMAL) TSH (07/19/2017 8:50 AM EDT) TSH 6.80(H) 0.27 - 4.20 mlU/ML [facility] Blood specimen (specimen) 07/19/2017 8:50 AM EDT 07/19/2017 9:11 AM EDT Narrative Resulting Agency Comment Spec In Lab Sriram Contreras MD CHEMISTRY ORDERABL ES Performing Organization Address City/[facility]/ZIP Co de Phone Number [facility] [place] [address] * Urine Hold (07/19/2017 8:07 AM EDT) Urine Hold Sample in lab. [facility] Urine specimen (specimen) Urine / Unknown 07/19/2017 8:07 AM EDT 07/19/2017 8:35 AM EDT Sriram Contreras MD URINE ORDERABLES Performing Organization Address City/[facility]/ZIP Co de Phone Number [facility] [place] [address] * (ABNORMAL) Urinalysis with reflex Culture (07/19/2017 8:07 AM EDT) Glucose UA Negative Negative mg/dL [facility] Protein UA 30(A) Negative mg/dL [facility] Bilirubin UA Negative Negative mg/dL [facility] Comment: Clinical correlation required for positive Urine Bilirubin results as false positive may occur with some drugs and drug related products. If a false positive is suspected a serum total bilirubin should be considered if clinically indicated. Urobilinogen UA >=4.0(A) Normal mg/dL [facility] pH UA 7.0 5.0 - 8.0 [facility] Blood UA Moderate(A) Negative mg/dL [facility] Ketones UA Negative Negative mg/dL [facility] Nitrite UA Negative Negative [facility] Leukocytes UA Trace(A) Negative mcL [facility] Appearance UA Clear Clear [facility] Spec [place] UA 1.025 1.002 - 1.030 [facility] Color UA Yellow Yellow [facility] RBC UA 161(H) 0 - 3 /HPF [facility] WBC UA 1 0 - 3 /HPF [facility] Culture Reflexed No [facility] Urine specimen obtained via indwelling urinary catheter (specimen) 07/19/2017 8:07 AM EDT 07/19/2017 8:34 AM EDT Narrative Resulting Agency Comment Spec In Lab Sriram Contreras MD URINE ORDERABLES Performing Organization Address City/[facility]/ZIP Co de Phone Number [facility] [place] [address] * POCT Glucose (07/19/2017 7:42 AM EDT) POC Glucose 99 65 - 199 mg/dL [facility] Comment: Supplemental ranges: <140 mg/dL before meals <180 mg/dL all other times of the day Blood specimen (specimen) 07/19/2017 7:42 AM EDT 07/19/2017 7:42 AM EDT Sriram Contreras MD POINT OF CARE TEST ORDERABLES [facility] [place] [address] * POCT Glucose (07/19/2017 4:11 AM EDT) Pathologist [facility] POC Glucose 93 65 - 199 mg/dL [facility] Comment: Supplemental ranges: <140 mg/dL before meals <180 mg/dL all other times of the day Blood specimen (specimen) 07/19/2017 4:11 AM EDT 07/19/2017 4:11 AM EDT Sriram Contreras MD POINT OF CARE TEST ORDERABLES [facility] [place] [address] * (ABNORMAL) Differential, Automated (07/19/2017 2:30 AM EDT) Neutrophils % 77.9 % [facility] Neutr Abs (ANC) 9.99(H) 1.70 - 6.10 x10(3)/mc L [facility] Lymphocytes % 9.8 % [facility] Lymphocytes Abs 1.2 0.9 - 3.2 x10(3)/mc L [facility] Monocytes % 11.5 % [facility] Monocyte Abs 1.5(H) 0.3 - 0.9 x10(3)/mc L [facility] Eosinophils % 0.1 % [facility] Eosinophils Abs 0.0 0.0 - 0.4 x10(3)/[facility] LAB[facility] Basophils % 0.2 % [facility] Basophils Abs 0.0 0.0 - 0.1 x10(3)/[facility] LAB[facility] Immature Gran % 0.50 % [facility] Comment: Immature granulocytes(IG's)percentage and absolute count will include metamyelocytes, myelocytes, and promyelocytes. Blood smears from CBCs yielding IG's will be scanned manually for concordance. If this scan disagrees with the automated IG or if promyelocytes are noted, a manual differential will be performed. Patti Gran Abs 0.07(H) 0.00 - 0.04 x10(3)/[facility] LAB[facility] Blood specimen (specimen) 07/19/2017 2:30 AM EDT 07/19/2017 2:34 AM EDT Narrative Resulting Agency Comment Spec In Lab Sriram Contreras MD HEMATOLOGY ORDERAB LES Performing Organization Address City/State/[facility] Co de Phone Number [facility] [place] [address] * (ABNORMAL) Hemogram (07/19/2017 2:30 AM EDT) WBC 12.8(H) 4.0 - 9.5 x10(3)/[facility] LABORATORY RBC 4.30(L) 4.58 - 5.54 x10(6)/[facility] Hemoglobin 13.5(L) 13.7 - 16.5 gm/dL [facility] Hematocrit 38.6(L) 40.5 - 48.5 % [facility] MCV 89.8 82.9 - 93.1 fL [facility] MCH 31.4 27.5 - 32.1 pg [facility] MCHC 35.0 32.0 - 35.7 gm/dL [facility] Platelets 176 145 - 357 x10(3)/[facility] RDWSD 45.1(H) 36.0 - 45.0 fL [facility] RDWCV 13.9(H) 11.4 - 13.8 % [facility] MPV 9.8 7.6 - 12.9 fL [facility] nRBC % Auto 0.0 % [facility] nRBC Abs Auto 0.000 0.000 - 0.000 x10(3)/[facility] Blood specimen (specimen) 07/19/2017 2:30 AM EDT 07/19/2017 2:34 AM EDT Narrative Resulting Agency Comment Spec In Lab Sriram Contreras MD HEMATOLOGY ORDERAB LES [facility] [place] [place] [address] * (ABNORMAL) Basic Metabolic Panel (non-fasting) (07/19/2017 2:30 AM EDT) Glucose Lvl 102 65 - 199 mg/dL [facility] Comment:Diabetes: >=200 mg/d L plus symptoms BUN 23(H) 10 - 20 mg/dL [facility] Creatinine 0.87 0.80 - 1.50 mg/dL [facility] Comment: Please note that the pediatric reference intervals supplied above were not validated at [facility]. Results from pediatric patients should be interpreted in conjunction to the patient's age, height and muscle mass. Sodium 144 135 - 145 mmol/L [facility] Potassium 3.4(L) 3.5 - 5.0 mmol/L [facility] Comment: Please note: ??Patients with WBC >100,000 may have falsely elevated Potassium levels. ??For accurate Potassium quantification in these patients send serum separator tube (gold top) for subsequent determinations. ??Contact the Clinical Chemistry Laboratory if there are any questions. Chloride 106 98 - 107 mmol/L [facility] CO2 23 22 - 31 mmol/L [facility] Anion Gap 15 5 - 15 mmol/L [facility] Calcium 8.5 8.5 - 10.5 mg/dL [facility] Estimated GFR >60 >=60 [place] [...] the following links into your internet browser. [email or web address] Blood specimen (specimen) 07/19/2017 2:30 AM EDT 07/19/2017 2:34 AM EDT Narrative Resulting Agency Comment Spec In Lab Sriram Contreras MD CHEMISTRY ORDERABL ES Performing Organization Address [facility] Co de Phone Number [facility] [place] [address] * (ABNORMAL) Prealbumin (07/19/2017 2:30 AM EDT) Prealbumin 17(L) 20 - 40 mg/dL [facility] Comment: Prealbumin levels are generally lower in the pediatric population; adult concentrations are usually attained near puberty. Blood specimen (specimen) 07/19/2017 2:30 AM EDT 07/19/2017 2:34 AM EDT Narrative Resulting Agency Comment Spec In Lab Sriram Contreras MD CHEMISTRY ORDERABL ES Performing Organization Address [facility] Co de Phone Number [facility] [place] [address] * (ABNORMAL) BLOOD GAS 2 ARTERIAL (07/18/2017 11:53 PM EDT) pH Art 7.50(H) 7.35 - 7.45 [facility] pCO2 Art 32(L) 35 - 45 mmHg [facility] pO2 Art 61(L) 85 - 104 mmHg [facility] HCO3 Art 24.5 20.0 - 26.0 mmol/L [facility] BE Art 1.3 -3.0 - 3.0 mmol/L [facility] Hgb Blood Gas 14.1 13.7 - 16.5 gm/dL [facility] O2HB Art 90.9(L) 94.0 - 97.0 % [facility] COHB Art 0.3 % [facility] Comment: Nonsmokers: 0.5-1.5% COHB Smokers: Variable, but usually less than 10% Toxic: 20-30% COHB Lethal: Greater than 60% COHB METHB Art 0.7 <=1.5 % [facility] Na Whole Blood 144 135 - 145 mmol/L [facility] K Whole Blood 3.3(L) 3.5 - 5.0 mmol/L [facility] Comment: Please note: Patients with WBC >100,000 may have falsely elevated Potassium levels. Contact the Clinical Chemistry Laboratory if there are any questions. ICa Whole Blood 1.17 1.15 - 1.33 mmol/L [facility] Comment: Note: ??Total bilirubin higher than 20 mg/dL may lead to falsely low ionized calcium. CL Whole Blood 109(H) 98 - 107 mmol/L [facility] Gluc Whole Bld 104 65 - 199 mg/dL [facility] Comment:Diabetes: >=200 mg/d L plus symptoms. Lactate WB 1.3 0.5 - 2.2 mmol/L [facility] FIO2 Art 45 % [facility] PF Ratio Art 136 [facility] Blood specimen (specimen) 07/18/2017 11:53 PM EDT 07/18/2017 11:53 PM EDT Sriram Contreras MD CHEMISTRY ORDERABL ES [facility] [place] [address] * POCT Glucose (07/18/2017 11:49 PM EDT) POC Glucose 102 65 - 199 mg/dL [facility] Comment: Supplemental ranges: <140 mg/dL before meals <180 mg/dL all other times of the day Blood specimen (specimen) 07/18/2017 11:49 PM EDT 07/18/2017 11:49 PM EDT Sriram Contreras MD POINT OF CARE TEST ORDERABLES Performing Organization Address [facility] Co de Phone Number [facility] [place] [address] * POCT Glucose (07/18/2017 8:44 PM EDT) POC Glucose 108 65 - 199 mg/dL [facility] Comment: Supplemental ranges: <140 mg/dL before meals <180 mg/dL all other times of the day Blood specimen (specimen) 07/18/2017 8:44 PM EDT 07/18/2017 8:44 PM EDT Sriram Contreras MD POINT OF CARE TEST ORDERABLES Performing Organization Address [facility] Co de Phone Number [facility] [place] [address] * (ABNORMAL) BLOOD GAS 2 ARTERIAL (07/18/2017 5:22 PM EDT) pH Art 7.54(H) 7.35 - 7.45 [facility] pCO2 Art 31(L) 35 - 45 mmHg [facility] pO2 Art 55(L) 85 - 104 mmHg [facility] HCO3 Art 25.9 20.0 - 26.0 mmol/L [facility] BE Art 3.3(H) -3.0 - 3.0 mmol/L [facility] Hgb Blood Gas 14.2 13.7 - 16.5 gm/dL [facility] O2HB Art 90.3(L) 94.0 - 97.0 % [facility] COHB Art 0.3 % [facility] Comment: Nonsmokers: 0.5-1.5% COHB Smokers: Variable, but usually less than 10% Toxic: 20-30% COHB Lethal: Greater than 60% COHB METHB Art 0.5 <=1.5 % [facility] Na Whole Blood 144 135 - 145 mmol/L [facility] K Whole Blood 3.3(L) 3.5 - 5.0 mmol/L [facility] Comment: Please note: Patients with WBC >100,000 may have falsely elevated Potassium levels. Contact the Clinical Chemistry Laboratory if there are any questions. ICa Whole Blood 1.18 1.15 - 1.33 mmol/L [facility] Comment: Note: ??Total bilirubin higher than 20 mg/dL may lead to falsely low ionized calcium. CL Whole Blood 108(H) 98 - 107 mmol/L [facility] Gluc Whole Bld 130 65 - 199 mg/dL [facility] Comment:Diabetes: >=200 mg/d L plus symptoms. Lactate WB 1.6 0.5 - 2.2 mmol/L [facility] FIO2 Art 40 % [facility] PF Ratio Art 138 [facility] Blood specimen (specimen) 07/18/2017 5:22 PM EDT 07/18/2017 5:22 PM EDT Sriram Contreras MD CHEMISTRY ORDERABL ES [facility] [place] [address] * POCT Glucose (07/18/2017 3:42 PM EDT) POC Glucose 119 65 - 199 mg/dL [facility] Comment: Supplemental ranges: <140 mg/dL before meals <180 mg/dL all other times of the day Blood specimen (specimen) 07/18/2017 3:42 PM EDT 07/18/2017 3:42 PM EDT Sriram Contreras MD POINT OF CARE TEST ORDERABLES Performing Organization Address City/[facility]/ZIP Co de Phone Number [facility] [place] [address] * POCT Glucose (07/18/2017 1:05 PM EDT) POC Glucose 118 65 - 199 mg/dL [facility] Comment: Supplemental ranges: <140 mg/dL before meals <180 mg/dL all other times of the day Blood specimen (specimen) 07/18/2017 1:05 PM EDT 07/18/2017 1:05 PM EDT Sriram Contreras MD POINT OF CARE TEST ORDERABLES Performing Organization Address City/[facility] Co de Phone Number [facility] [place] [address] * (ABNORMAL) BLOOD GAS 2 ARTERIAL (07/18/2017 11:47 AM EDT) pH Art 7.51(H) 7.35 - 7.45 [facility] pCO2 Art 33(L) 35 - 45 mmHg [facility] pO2 Art 94 85 - 104 mmHg [facility] HCO3 Art 25.1 20.0 - 26.0 mmol/L [facility] BE Art 2.0 -3.0 - 3.0 mmol/L [facility] Hgb Blood Gas 14.4 13.7 - 16.5 gm/dL [facility] O2HB Art 96.1 94.0 - 97.0 % [facility] COHB Art 0.3 % [facility] Comment: Nonsmokers: 0.5-1.5% COHB Smokers: Variable, but usually less than 10% Toxic: 20-30% COHB Lethal: Greater than 60% COHB METHB Art 0.6 <=1.5 % [facility] Na Whole Blood 141 135 - 145 mmol/L [facility] K Whole Blood 3.6 3.5 - 5.0 mmol/L [facility] Comment: Please note: Patients with WBC >100,000 may have falsely elevated Potassium levels. Contact the Clinical Chemistry Laboratory if there are any questions. ICa Whole Blood 1.17 1.15 - 1.33 mmol/L [facility] Comment: Note: ??Total bilirubin higher than 20 mg/dL may lead to falsely low ionized calcium. CL Whole Blood 104 98 - 107 mmol/L [facility] Gluc Whole Bld 228(H) 65 - 199 mg/dL [facility] Comment:Diabetes: >=200 mg/d L plus symptoms. Lactate WB 1.7 0.5 - 2.2 mmol/L [facility] FIO2 Art 50 % [facility] PF Ratio Art 188 [facility] Blood specimen (specimen) 07/18/2017 11:47 AM EDT 07/18/2017 11:47 AM EDT Sriram Contreras MD CHEMISTRY ORDERABL ES Performing Organization Address City/State/[facility] Co de Phone Number [facility] [place] [address] * (ABNORMAL) BLOOD GAS 2 ARTERIAL (07/18/2017 7:56 AM EDT) pH Art 7.50(H) 7.35 - 7.45 [facility] pCO2 Art 31(L) 35 - 45 mmHg [facility] pO2 Art 82(L) 85 - 104 mmHg [facility] HCO3 Art 24.2 20.0 - 26.0 mmol/L [facility] BE Art 1.0 -3.0 - 3.0 mmol/L [facility] Hgb Blood Gas 13.4(L) 13.7 - 16.5 gm/dL [facility] O2HB Art 95.3 94.0 - 97.0 % [facility] COHB Art 0.3 % [facility] Comment: Nonsmokers: 0.5-1.5% COHB Smokers: Variable, but usually less than 10% Toxic: 20-30% COHB Lethal: Greater than 60% COHB METHB Art 0.5 <=1.5 % [facility] Na Whole Blood 143 135 - 145 mmol/L [facility] K Whole Blood 3.7 3.5 - 5.0 mmol/L [facility] Comment: Please note: Patients with WBC >100,000 may have falsely elevated Potassium levels. Contact the Clinical Chemistry Laboratory if there are any questions. ICa Whole Blood 1.17 1.15 - 1.33 mmol/L [facility] Comment: Note: ??Total bilirubin higher than 20 mg/dL may lead to falsely low ionized calcium. CL Whole Blood 106 98 - 107 mmol/L [facility] Gluc Whole Bld 158 65 - 199 mg/dL [facility] Comment:Diabetes: >=200 mg/d L plus symptoms. Lactate WB 2.5(H) 0.5 - 2.2 mmol/L [facility] FIO2 Art 60 % [facility] PF Ratio Art 137 [facility] Blood specimen (specimen) 07/18/2017 7:56 AM EDT 07/18/2017 7:56 AM EDT Sriram Contreras MD CHEMISTRY ORDERABL ES [facility] [place] [address] * (ABNORMAL) BLOOD GAS 2 ARTERIAL (07/18/2017 3:55 AM EDT) pH Art 7.51(H) 7.35 - 7.45 [facility] pCO2 Art 34(L) 35 - 45 mmHg [facility] pO2 Art 95 85 - 104 mmHg [facility] HCO3 Art 26.4(H) 20.0 - 26.0 mmol/L [facility] BE Art 3.4(H) -3.0 - 3.0 mmol/L [facility] Hgb Blood Gas 14.2 13.7 - 16.5 gm/dL [facility] O2HB Art 96.4 94.0 - 97.0 % [facility] COHB Art 0.5 % [facility] Comment: Nonsmokers: 0.5-1.5% COHB Smokers: Variable, but usually less than 10% Toxic: 20-30% COHB Lethal: Greater than 60% COHB METHB Art 0.6 <=1.5 % [facility] Na Whole Blood 142 135 - 145 mmol/L [facility] K Whole Blood 3.6 3.5 - 5.0 mmol/L [facility] Comment: Please note: Patients with WBC >100,000 may have falsely elevated Potassium levels. Contact the Clinical Chemistry Laboratory if there are any questions. ICa Whole Blood 1.17 1.15 - 1.33 mmol/L [facility] Comment: Note: ??Total bilirubin higher than 20 mg/dL may lead to falsely low ionized calcium. CL Whole Blood 105 98 - 107 mmol/L [facility] Gluc Whole Bld 178 65 - 199 mg/dL [facility] Comment:Diabetes: >=200 mg/d L plus symptoms. Lactate WB 3.0(H) 0.5 - 2.2 mmol/L [facility] FIO2 Art 70 % [facility] PF Ratio Art 136 [facility] Blood specimen (specimen) 07/18/2017 3:55 AM EDT 07/18/2017 3:55 AM EDT Sriram Contreras MD CHEMISTRY ORDERABL ES [facility] [place] [address] * (ABNORMAL) POCT Glucose (07/18/2017 3:42 AM EDT) POC Glucose 205(H) 65 - 199 mg/dL [facility] Comment: Supplemental ranges: <140 mg/dL before meals <180 mg/dL all other times of the day Blood specimen (specimen) 07/18/2017 3:42 AM EDT 07/18/2017 3:42 AM EDT Sriram Contreras MD POINT OF CARE TEST ORDERABLES Performing Organization Address [facility] de Phone Number [facility] [place] [address] * (ABNORMAL) Magnesium (07/18/2017 2:20 AM EDT) Pathologist [facility] Magnesium 1.09(H) 0.69 - 1.07 mmol/L [facility] Blood specimen (specimen) Venous Draw / Unknown 07/18/2017 2:20 AM EDT 07/18/2017 2:31 AM EDT Narrative Resulting Agency Comment Spec In Lab Sriram Contreras MD CHEMISTRY ORDERABL ES Performing Organization Address [facility] Phone Number [facility] [place] [address] * (ABNORMAL) Differential, Automated (07/18/2017 2:20 AM EDT) Neutrophils % 86.8 % [facility] Neutr Abs (ANC) 9.28(H) 1.70 - 6.10 x10(3)/mc L [facility] Lymphocytes % 5.8 % [facility] Lymphocytes Abs 0.6(L) 0.9 - 3.2 x10(3)/mc L [facility] Monocytes % 6.5 % [facility] Monocyte Abs 0.7 0.3 - 0.9 x10(3)/mc L [facility] Eosinophils % 0.0 % [facility] Eosinophils Abs 0.0 0.0 - 0.4 x10(3)/mc L [facility] Basophils % 0.2 % [facility] Basophils Abs 0.0 0.0 - 0.1 x10(3)/mc L [facility] Immature Gran % 0.70 % [facility] Comment: Immature granulocytes(IG's)percentage and absolute count will include metamyelocytes, myelocytes, and promyelocytes. Blood smears from CBCs yielding IG's will be scanned manually for concordance. If this scan disagrees with the automated IG or if promyelocytes are noted, a manual differential will be performed. Patti Gran Abs 0.08(H) 0.00 - 0.04 x10(3)/ L [facility] Blood specimen (specimen) 07/18/2017 2:20 AM EDT 07/18/2017 2:28 AM EDT Narrative Resulting Agency Comment Spec In Lab Sriram Contreras MD HEMATOLOGY ORDERAB LES Performing Organization Address City/State/[facility] Co de Phone Number [facility] [place] [address] * (ABNORMAL) Hemogram (07/18/2017 2:20 AM EDT) WBC 10.7(H) 4.0 - 9.5 x10(3)/[facility] RBC 4.39(L) 4.58 - 5.54 x10(6)/[facility] Hemoglobin 13.6(L) 13.7 - 16.5 gm/dL [facility] Hematocrit 38.8(L) 40.5 - 48.5 % [facility] MCV 88.4 82.9 - 93.1 fL [facility] MCH 31.0 27.5 - 32.1 pg [facility] MCHC 35.1 32.0 - 35.7 gm/dL [facility] Platelets 147 145 - 357 x10(3)/[facility] RDWSD 43.4 36.0 - 45.0 fL [facility] RDWCV 13.3 11.4 - 13.8 % [facility] MPV 10.9 7.6 - 12.9 fL [facility] nRBC % Auto 0.0 % [facility] nRBC Abs Auto 0.000 0.000 - 0.000 x10(3)/mcL [facility] Blood specimen (specimen) 07/18/2017 2:20 AM EDT 07/18/2017 2:28 AM EDT Narrative Resulting Agency Comment Spec In Lab Sriram Contreras MD HEMATOLOGY ORDERAB LES [facility] [place] [address] * (ABNORMAL) Basic Metabolic Panel (non-fasting) (07/18/2017 2:20 AM EDT) Glucose Lvl 181 65 - 199 mg/dL [facility] Comment:Diabetes: >=200 mg/d L plus symptoms BUN 22(H) 10 - 20 mg/dL [facility] Creatinine 0.74(L) 0.80 - 1.50 mg/dL [facility] Comment: Please note that the pediatric reference intervals supplied above were not validated at [facility]. Results from pediatric patients should be interpreted in conjunction to the patient's age, height and muscle mass. Sodium 145 135 - 145 mmol/L [facility] Potassium 3.7 3.5 - 5.0 mmol/L [facility] Comment: Please note: ??Patients with WBC >100,000 may have falsely elevated Potassium levels. ??For accurate Potassium quantification in these patients send serum separator tube (gold top) for subsequent determinations. ??Contact the Clinical Chemistry Laboratory if there are any questions. Chloride 105 98 - 107 mmol/L [facility] CO2 25 22 - 31 mmol/L [facility] Anion Gap 15 5 - 15 mmol/L [facility] Calcium 8.8 8.5 - 10.5 mg/dL [facility] Estimated GFR >60 >=60 [place] [...] the following links into your internet browser. [email or web address] Blood specimen (specimen) 07/18/2017 2:20 AM EDT 07/18/2017 2:28 AM EDT Narrative Resulting Agency Comment Spec In Lab Sriram Contreras MD CHEMISTRY ORDERABL ES [facility] [place] [address] * (ABNORMAL) BLOOD GAS 2 ARTERIAL (07/17/2017 11:36 PM EDT) pH Art 7.51(H) 7.35 - 7.45 [facility] pCO2 Art 32(L) 35 - 45 mmHg [facility] pO2 Art 60(L) 85 - 104 mmHg [facility] HCO3 Art 25.0 20.0 - 26.0 mmol/L [facility] BE Art 2.0 -3.0 - 3.0 mmol/L [facility] Hgb Blood Gas 14.8 13.7 - 16.5 gm/dL [facility] O2HB Art 92.1(L) 94.0 - 97.0 % [facility] COHB Art 0.3 % [facility] Comment: Nonsmokers: 0.5-1.5% COHB Smokers: Variable, but usually less than 10% Toxic: 20-30% COHB Lethal: Greater than 60% COHB METHB Art 0.5 <=1.5 % [facility] Na Whole Blood 143 135 - 145 mmol/L [facility] K Whole Blood 3.7 3.5 - 5.0 mmol/L [facility] Comment: Please note: Patients with WBC >100,000 may have falsely elevated Potassium levels. Contact the Clinical Chemistry Laboratory if there are any questions. ICa Whole Blood 1.16 1.15 - 1.33 mmol/L [facility] Comment: Note: ??Total bilirubin higher than 20 mg/dL may lead to falsely low ionized calcium. CL Whole Blood 104 98 - 107 mmol/L [facility] Gluc Whole Bld 202(H) 65 - 199 mg/dL [facility] Comment:Diabetes: >=200 mg/d L plus symptoms. Lactate WB 2.9(H) 0.5 - 2.2 mmol/L [facility] FIO2 Art 60 % [facility] PF Ratio Art 100 [facility] Blood specimen (specimen) 07/17/2017 11:36 PM EDT 07/17/2017 11:36 PM EDT Sriram Contreras MD CHEMISTRY ORDERABL ES Performing Organization Address City/[facility]/ZIP Co de Phone Number [facility] [place] [address] * (ABNORMAL) POCT Glucose (07/17/2017 11:34 PM EDT) POC Glucose 202(H) 65 - 199 mg/dL [facility] Comment: Supplemental ranges: <140 mg/dL before meals <180 mg/dL all other times of the day Blood specimen (specimen) 07/17/2017 11:34 PM EDT 07/17/2017 11:34 PM EDT Sriram Contreras MD POINT OF CARE TEST ORDERABLES [facility] [place] [address] * Magnesium (07/17/2017 10:10 PM EDT) Magnesium 0.87 0.69 - 1.07 mmol/L [facility] Blood specimen (specimen) 07/17/2017 10:10 PM EDT 07/17/2017 10:18 PM EDT Narrative Resulting Agency Comment Spec In Lab Sriram Contreras MD CHEMISTRY ORDERABL ES [facility] [place] [place] [address] * (ABNORMAL) BLOOD GAS 2 ARTERIAL (07/17/2017 7:51 PM EDT) pH Art 7.49(H) 7.35 - 7.45 [facility] pCO2 Art 36 35 - 45 mmHg [facility] pO2 Art 67(L) 85 - 104 mmHg [facility] HCO3 Art 26.8(H) 20.0 - 26.0 mmol/L [facility] BE Art 3.4(H) -3.0 - 3.0 mmol/L [facility] Hgb Blood Gas 14.3 13.7 - 16.5 gm/dL [facility] O2HB Art 93.4(L) 94.0 - 97.0 % [facility] COHB Art 0.3 % [facility] Comment: Nonsmokers: 0.5-1.5% COHB Smokers: Variable, but usually less than 10% Toxic: 20-30% COHB Lethal: Greater than 60% COHB METHB Art 0.6 <=1.5 % [facility] Na Whole Blood 143 135 - 145 mmol/L [facility] K Whole Blood 3.7 3.5 - 5.0 mmol/L [facility] Comment: Please note: Patients with WBC >100,000 may have falsely elevated Potassium levels. Contact the Clinical Chemistry Laboratory if there are any questions. ICa Whole Blood 1.17 1.15 - 1.33 mmol/L [facility] Comment: Note: ??Total bilirubin higher than 20 mg/dL may lead to falsely low ionized calcium. CL Whole Blood 106 98 - 107 mmol/L [facility] Gluc Whole Bld 178 65 - 199 mg/dL [facility] Comment:Diabetes: >=200 mg/d L plus symptoms. Lactate WB 2.8(H) 0.5 - 2.2 mmol/L [facility] FIO2 Art 60 % [facility] PF Ratio Art 112 [facility] Blood specimen (specimen) 07/17/2017 7:51 PM EDT 07/17/2017 7:51 PM EDT Sriram Contreras MD CHEMISTRY ORDERABL ES Performing Organization Address [facility] Co oh Phone Number [facility] [place] [address] * POCT Glucose (07/17/2017 7:50 PM EDT) POC Glucose 153 65 - 199 mg/dL [facility] Comment: Supplemental ranges: <140 mg/dL before meals <180 mg/dL all other times of the day Blood specimen (specimen) 07/17/2017 7:50 PM EDT 07/17/2017 7:50 PM EDT Sriram Contreras MD POINT OF CARE TEST ORDERABLES Performing Organization Address [facility] Co de Phone Number [facility] [place] [address] * (ABNORMAL) BLOOD GAS 2 ARTERIAL (07/17/2017 3:20 PM EDT) pH Art 7.51(H) 7.35 - 7.45 [facility] pCO2 Art 31(L) 35 - 45 mmHg [facility] pO2 Art 67(L) 85 - 104 mmHg [facility] HCO3 Art 24.3 20.0 - 26.0 mmol/L [facility] BE Art 1.3 -3.0 - 3.0 mmol/L [facility] Hgb Blood Gas 14.1 13.7 - 16.5 gm/dL [facility] O2HB Art 93.8(L) 94.0 - 97.0 % [facility] COHB Art 0.3 % [facility] Comment: Nonsmokers: 0.5-1.5% COHB Smokers: Variable, but usually less than 10% Toxic: 20-30% COHB Lethal: Greater than 60% COHB METHB Art 0.5 <=1.5 % [facility] Na Whole Blood 141 135 - 145 mmol/L [facility] K Whole Blood 3.7 3.5 - 5.0 mmol/L [facility] Comment: Please note: Patients with WBC >100,000 may have falsely elevated Potassium levels. Contact the Clinical Chemistry Laboratory if there are any questions. ICa Whole Blood 1.15(L) 1.15 - 1.33 mmol/L [facility] Comment: Note: ??Total bilirubin higher than 20 mg/dL may lead to falsely low ionized calcium. CL Whole Blood 105 98 - 107 mmol/L [facility] Gluc Whole Bld 204(H) 65 - 199 mg/dL [facility] Comment:Diabetes: >=200 mg/d L plus symptoms. Lactate WB 2.0 0.5 - 2.2 mmol/L [facility] FIO2 Art 50 % [facility] PF Ratio Art 134 [facility] Blood specimen (specimen) 07/17/2017 3:20 PM EDT 07/17/2017 3:20 PM EDT Sriram Contreras MD CHEMISTRY ORDERABL ES [facility] [place] [address] * (ABNORMAL) BLOOD GAS 2 ARTERIAL (07/17/2017 12:50 PM EDT) pH Art 7.51(H) 7.35 - 7.45 [facility] pCO2 Art 30(L) 35 - 45 mmHg [facility] pO2 Art 52(L) 85 - 104 mmHg [facility] HCO3 Art 23.7 20.0 - 26.0 mmol/L [facility] BE Art 0.8 -3.0 - 3.0 mmol/L [facility] Hgb Blood Gas 14.0 13.7 - 16.5 gm/dL [facility] O2HB Art 89.4(L) 94.0 - 97.0 % [facility] COHB Art 0.3 % [facility] Comment: Nonsmokers: 0.5-1.5% COHB Smokers: Variable, but usually less than 10% Toxic: 20-30% COHB Lethal: Greater than 60% COHB METHB Art 0.5 <=1.5 % [facility] Na Whole Blood 140 135 - 145 mmol/L [facility] K Whole Blood 3.9 3.5 - 5.0 mmol/L [facility] Comment: Please note: Patients with WBC >100,000 may have falsely elevated Potassium levels. Contact the Clinical Chemistry Laboratory if there are any questions. ICa Whole Blood 1.18 1.15 - 1.33 mmol/L [facility] Comment: Note: ??Total bilirubin higher than 20 mg/dL may lead to falsely low ionized calcium. CL Whole Blood 106 98 - 107 mmol/L [facility] Gluc Whole Bld 195 65 - 199 mg/dL [facility] Comment:Diabetes: >=200 mg/d L plus symptoms. Lactate WB 2.3(H) 0.5 - 2.2 mmol/L [facility] FIO2 Art 50 % [facility] PF Ratio Art 104 [facility] Blood specimen (specimen) 07/17/2017 12:50 PM EDT 07/17/2017 12:50 PM EDT Sriram Contreras MD CHEMISTRY ORDERABL ES [facility] [place] [address] * XR Chest PA or AP 1 [...] EDT) pH Art 7.48(H) 7.35 - 7.45 [facility] pCO2 Art 34(L) 35 - 45 mmHg [facility] pO2 Art 55(L) 85 - 104 mmHg [facility] HCO3 Art 24.7 20.0 - 26.0 mmol/L [facility] BE Art 1.2 -3.0 - 3.0 mmol/L [facility] Hgb Blood Gas 14.1 13.7 - 16.5 gm/dL [facility] O2HB Art 90.4(L) 94.0 - 97.0 % [facility] COHB Art 0.1 % [facility] Comment: Nonsmokers: 0.5-1.5% COHB Smokers: Variable, but usually less than 10% Toxic: 20-30% COHB Lethal: Greater than 60% COHB METHB Art 0.7 <=1.5 % [facility] Na Whole Blood 141 135 - 145 mmol/L [facility] K Whole Blood 4.2 3.5 - 5.0 mmol/L [facility] Comment: Please note: Patients with WBC >100,000 may have falsely elevated Potassium levels. Contact the Clinical Chemistry Laboratory if there are any questions. ICa Whole Blood 1.18 1.15 - 1.33 mmol/L [facility] Comment: Note: ??Total bilirubin higher than 20 mg/dL may lead to falsely low ionized calcium. CL Whole Blood 106 98 - 107 mmol/L [facility] Gluc Whole Bld 194 65 - 199 mg/dL [facility] Comment:Diabetes: >=200 mg/d L plus symptoms. Lactate WB 2.6(H) 0.5 - 2.2 mmol/L [facility] FIO2 Art 40 % [facility] PF Ratio Art 138 [facility] Blood specimen (specimen) 07/17/2017 11:54 AM EDT 07/17/2017 11:54 AM EDT Sriram Contreras MD CHEMISTRY ORDERABL ES Performing Organization Address City/[facility]/ZIP Co de Phone Number [facility] [place] [address] * Cardiac Enzymes (07/17/2017 5:42 AM EDT) Troponin-T <0.01 0.00 - 0.00 ng/mL [facility] Comment: The 99th percentile for Troponin T is less than 0.01 ng/mL, any detectable cTnT concentration using this assay should be considered elevated. According to the third universal definition of myocardial infarction the following criteria with a clinical presentation consistent with acute myocardial ischemia meets the diagnosis for a myocardial infarction ([place]). Detection of a rise and/or fall of cTnT, with at least one value greater than the 99th percentile (> or = 0.01) and with at least one of the following ?? Symptoms of ischemia ?? New or presumed new significant EE-[id number]-S wave (ST-T) changes or new left bundle [...] additional sample may be indicated. Reference: Third [place] Definition of Myocardial Infarction. Journal of the [place] [employer] 2012;60:1581-98 CK, Total 47 0 - 200 unit/L [facility] Blood specimen (specimen) 07/17/2017 5:42 AM EDT 07/17/2017 5:42 AM EDT Narrative Resulting Agency Comment Spec In Lab Sriram Contreras MD CHEMISTRY ORDERABL ES Performing Organization Address City/[facility]/ZIP Co de Phone Number [facility] [place] [address] * (ABNORMAL) Differential, Automated (07/17/2017 12:30 AM EDT) Neutrophils % 90.5 % [facility] Neutr Abs (ANC) 8.62(H) 1.70 - 6.10 x10(3)/[facility] Lymphocytes % 3.7 % [facility] Lymphocytes Abs 0.4(L) 0.9 - 3.2 x10(3)/[facility] Monocytes % 4.9 % [facility] Monocyte Abs 0.5 0.3 - 0.9 x10(3)/[facility] Eosinophils % 0.0 % [facility] Eosinophils Abs 0.0 0.0 - 0.4 x10(3)/[facility] Basophils % 0.1 % [facility] Basophils Abs 0.0 0.0 - 0.1 x10(3)/[facility] Immature Gran % 0.80 % [facility] Comment: Immature granulocytes(IG's)percentage and absolute count will include metamyelocytes, myelocytes, and promyelocytes. Blood smears from CBCs yielding IG's will be scanned manually for concordance. If this scan disagrees with the automated IG or if promyelocytes are noted, a manual differential will be performed. Patti Gran Abs 0.08(H) 0.00 - 0.04 x10(3)/[facility] Blood specimen (specimen) 07/17/2017 12:30 AM EDT 07/17/2017 1:13 AM EDT Narrative Resulting Agency Comment Spec In Lab Sriram Contreras MD HEMATOLOGY ORDERAB LES [facility] [place] [place] [address] * (ABNORMAL) Hemogram (07/17/2017 12:30 AM EDT) WBC 9.5 4.0 - 9.5 x10(3)/[facility] RBC 3.98(L) 4.58 - 5.54 x10(6)/[facility] Hemoglobin 12.4(L) 13.7 - 16.5 gm/dL [facility] Hematocrit 36.7(L) 40.5 - 48.5 % [facility] MCV 92.2 82.9 - 93.1 [facility] MCH 31.2 27.5 - 32.1 pg [facility] MCHC 33.8 32.0 - 35.7 gm/dL [facility] Platelets 133(L) 145 - 357 x10(3)/[facility] RDWSD 47.7(H) 36.0 - 45.0 [facility] RDWCV 13.8 11.4 - 13.8 % [facility] MPV 10.9 7.6 - 12.9 [facility] nRBC % Auto 0.0 % [facility] nRBC Abs Auto 0.000 0.000 - 0.000 x10(3)/[facility] Blood specimen (specimen) 07/17/2017 12:30 AM EDT 07/17/2017 1:13 AM EDT Narrative Resulting Agency Comment Spec In Lab Sriram Contreras MD HEMATOLOGY ORDERAB LES [facility] [place] [address] * (ABNORMAL) Basic Metabolic Panel (non-fasting) (07/17/2017 12:30 AM EDT) Glucose Lvl 246(H) 65 - 199 mg/dL [facility] Comment:Diabetes: >=200 mg/d L plus symptoms BUN 17 10 - 20 mg/dL [facility] Creatinine 0.73(L) 0.80 - 1.50 mg/dL [facility] Comment: Please note that the pediatric reference intervals supplied above were not validated at [facility]. Results from pediatric patients should be interpreted in conjunction to the patient's age, height and muscle mass. Sodium 137 135 - 145 mmol/L [facility] Potassium 4.7 3.5 - 5.0 mmol/L [facility] Comment: Please note: ??Patients with WBC >100,000 may have falsely elevated Potassium levels. ??For accurate Potassium quantification in these patients send serum separator tube (gold top) for subsequent determinations. ??Contact the Clinical Chemistry Laboratory if there are any questions. Chloride 103 98 - 107 mmol/L [facility] CO2 21(L) 22 - 31 mmol/L [facility] Anion Gap 13 5 - 15 mmol/L [facility] Calcium 8.3(L) 8.5 - 10.5 mg/dL [facility] Estimated GFR >60 >=60 [place] [...] the following links into your internet browser. [email or web address] Blood specimen (specimen) 07/17/2017 12:30 AM EDT 07/17/2017 1:13 AM EDT Narrative Resulting Agency Comment Spec In Lab Sriram Contreras MD CHEMISTRY ORDERABL ES [facility] [place] [address] * Cardiac Enzymes (07/17/2017 12:30 AM EDT) Troponin-T <0.01 0.00 - 0.00 ng/mL [facility] Comment: The 99th percentile for Troponin T is less than 0.01 ng/mL, any detectable cTnT concentration using this assay should be considered elevated. According to the third universal definition of myocardial infarction the following criteria with a clinical presentation consistent with acute myocardial ischemia meets the diagnosis for a myocardial infarction ([place]). Detection of a rise and/or fall of cTnT, with at least one value greater than the 99th percentile (> or = 0.01) and with at least one of the following ?? Symptoms of ischemia ?? New or presumed new significant UO-fqodmsr-X wave (ST-T) changes or new left bundle [...] additional sample may be indicated. Reference: Third [place] Definition of Myocardial Infarction. Journal of the [place] [employer] 2012;60:1581-98 CK, Total 60 0 - 200 unit/L [facility] Blood specimen (specimen) 07/17/2017 12:30 AM EDT 07/17/2017 1:13 AM EDT Narrative Resulting Agency Comment Spec In Lab Sriram Contreras MD CHEMISTRY ORDERABL ES [facility] [place] [address] * XR Chest PA or AP 1 [...] EDT) Troponin-T <0.01 0.00 - 0.00 ng/mL [facility] Comment: The 99th percentile for Troponin T is less than 0.01 ng/mL, any detectable cTnT concentration using this assay should be considered elevated. According to the third universal definition of myocardial infarction the following criteria with a clinical presentation consistent with acute myocardial ischemia meets the diagnosis for a myocardial infarction ([place]). Detection of a rise and/or fall of cTnT, with at least one value greater than the 99th percentile (> or = 0.01) and with at least one of the following ?? Symptoms of ischemia ?? New or presumed new significant ME-[id number]-J wave (ST-T) changes or new left bundle [...] additional sample may be indicated. Reference: Third [place] Definition of Myocardial Infarction. Journal of the [place] [employer] 2012;60:1581-98 CK, Total 63 0 - 200 unit/L [facility] Blood specimen (specimen) 07/16/2017 5:10 PM EDT 07/16/2017 5:20 PM EDT Narrative Resulting Agency Comment Spec In Lab Sriram Contreras MD CHEMISTRY ORDERABL ES Performing Organization Address [facility] Co de Phone Number [facility] [place] [address] * EKG 12 Lead (07/16/2017 4:46 PM EDT) Ventricular rate 70 BPM MUSE SYSTEM Atrial Rate 70 BPM MUSE SYSTEM P-R Interval 208 ms MUSE SYSTEM QRS Duration 96 ms MUSE SYSTEM Q-T Interval 404 ms MUSE SYSTEM QTC Calculated (Bezet) 436 ms MUSE SYSTEM Calculated P [place] 57 degrees MUSE SYSTEM Calculated R [place] 54 degrees MUSE SYSTEM Calculated T [place] 50 degrees MUSE SYSTEM INTERPRETATION Sinus rhythm with frequent Premature ventricular complexes in a pattern of bigeminy Otherwise normal ECG Confirmed by MD Ace, Hilton ([id number]) on 07/17/2017 2:06:02 PM MUSE SYSTEM 07/16/2017 4:46 PM EDT 07/17/2017 2:06 PM EDT Sriram Contreras MD ECG ORDERABLES Performing Organization Address [facility] Co de Phone Number MUSE SYSTEM * Magnesium (07/16/2017 4:00 AM EDT) Magnesium 0.82 0.69 - 1.07 mmol/L [facility] Blood specimen (specimen) Venous Draw / Unknown 07/16/2017 4:00 AM EDT 07/16/2017 4:18 AM EDT Narrative Resulting Agency Comment Spec In Lab Sriram Contreras MD CHEMISTRY ORDERABL ES Performing Organization Address [facility] Co de Phone Number [facility] [place] [place] [address] * (ABNORMAL) Differential, Automated (07/16/2017 4:00 AM EDT) Neutrophils % 81.3 % [facility] Neutr Abs (ANC) 8.31(H) 1.70 - 6.10 x10(3)/[facility] Lymphocytes % 10.7 % [facility] Lymphocytes Abs 1.1 0.9 - 3.2 x10(3)/[facility] Monocytes % 6.8 % [facility] Monocyte Abs 0.7 0.3 - 0.9 x10(3)/[facility] Eosinophils % 0.3 % [facility] Eosinophils Abs 0.0 0.0 - 0.4 x10(3)/[facility] Basophils % 0.4 % [facility] Basophils Abs 0.0 0.0 - 0.1 x10(3)/[facility] Immature Gran % 0.50 % [facility] Comment: Immature granulocytes(IG's)percentage and absolute count will include metamyelocytes, myelocytes, and promyelocytes. Blood smears from CBCs yielding IG's will be scanned manually for concordance. If this scan disagrees with the automated IG or if promyelocytes are noted, a manual differential will be performed. Patti Gran Abs 0.05(H) 0.00 - 0.04 x10(3)/[facility] Blood specimen (specimen) 07/16/2017 4:00 AM EDT 07/16/2017 4:16 AM EDT Narrative Resulting Agency Comment Spec In Lab Sriram Contreras MD HEMATOLOGY ORDERAB LES [facility] [place] [place] [address] * (ABNORMAL) Hemogram (07/16/2017 4:00 AM EDT) WBC 10.2(H) 4.0 - 9.5 x10(3)/[facility] RBC 3.95(L) 4.58 - 5.54 x10(6)/[facility] Hemoglobin 12.4(L) 13.7 - 16.5 gm/dL [facility] Hematocrit 37.2(L) 40.5 - 48.5 % [facility] MCV 94.2(H) 82.9 - 93.1 fL [facility] MCH 31.4 27.5 - 32.1 pg [facility] MCHC 33.3 32.0 - 35.7 gm/dL [facility] Platelets 126(L) 145 - 357 x10(3)/[facility] RDWSD 50.0(H) 36.0 - 45.0 [facility] RDWCV 14.3(H) 11.4 - 13.8 % [facility] MPV 10.3 7.6 - 12.9 [facility] nRBC % Auto 0.0 % [facility] nRBC Abs Auto 0.000 0.000 - 0.000 x10(3)/[facility] Blood specimen (specimen) 07/16/2017 4:00 AM EDT 07/16/2017 4:16 AM EDT Narrative Resulting Agency Comment Spec In Lab Sriram Contreras MD HEMATOLOGY ORDERAB LES [facility] [place] [place] [address] * (ABNORMAL) Basic Metabolic Panel (non-fasting) (07/16/2017 4:00 AM EDT) Glucose Lvl 131 65 - 199 mg/dL [facility] Comment:Diabetes: >=200 mg/d L plus symptoms BUN 16 10 - 20 mg/dL [facility] Creatinine 0.82 0.80 - 1.50 mg/dL [facility] Comment: Please note that the pediatric reference intervals supplied above were not validated at [facility]. Results from pediatric patients should be interpreted in conjunction to the patient's age, height and muscle mass. Sodium 144 135 - 145 mmol/L [facility] Potassium 4.2 3.5 - 5.0 mmol/L [facility] Comment: Please note: ??Patients with WBC >100,000 may have falsely elevated Potassium levels. ??For accurate Potassium quantification in these patients send serum separator tube (gold top) for subsequent determinations. ??Contact the Clinical Chemistry Laboratory if there are any questions. Chloride 106 98 - 107 mmol/L [facility] CO2 21(L) 22 - 31 mmol/L [facility] Anion Gap 17(H) 5 - 15 mmol/L [facility] Calcium 8.1(L) 8.5 - 10.5 mg/dL [facility] Estimated GFR >60 >=60 [place] [...] the following links into your internet browser. [email or web address] Blood specimen (specimen) 07/16/2017 4:00 AM EDT 07/16/2017 4:16 AM EDT Narrative Resulting Agency Comment Spec In Lab Sriram Contreras MD CHEMISTRY ORDERABL ES [facility] [place] [place] [address] * POCT Glucose (07/15/2017 12:26 PM EDT) POC Glucose 75 65 - 199 mg/dL [facility] Comment: Supplemental ranges: <140 mg/dL before meals <180 mg/dL all other times of the day Blood specimen (specimen) 07/15/2017 12:26 PM EDT 07/15/2017 12:26 PM EDT Sriram Contreras MD POINT OF CARE TEST ORDERABLES [facility] [place] [place] [address] * (ABNORMAL) Basic Metabolic Panel (non-fasting) (07/15/2017 10:20 AM EDT) Glucose Lvl 111 65 - 199 mg/dL [facility] Comment:Diabetes: >=200 mg/d L plus symptoms BUN 19 10 - 20 mg/dL [facility] Creatinine 0.96 0.80 - 1.50 mg/dL [facility] Comment: Please note that the pediatric reference intervals supplied above were not validated at [facility]. Results from pediatric patients should be interpreted in conjunction to the patient's age, height and muscle mass. Sodium 143 135 - 145 mmol/L [facility] Potassium 4.0 3.5 - 5.0 mmol/L [facility] Comment: Please note: ??Patients with WBC >100,000 may have falsely elevated Potassium levels. ??For accurate Potassium quantification in these patients send serum separator tube (gold top) for subsequent determinations. ??Contact the Clinical Chemistry Laboratory if there are any questions. Chloride 107 98 - 107 mmol/L [facility] CO2 22 22 - 31 mmol/L [facility] Anion Gap 14 5 - 15 mmol/L [facility] Calcium 8.2(L) 8.5 - 10.5 mg/dL [facility] Estimated GFR >60 >=60 [place] [...] the following links into your internet browser. [email or web address] Blood specimen (specimen) 07/15/2017 10:20 AM EDT 07/15/2017 10:24 AM EDT Narrative Resulting Agency Comment Spec In Lab Sriram Contreras MD CHEMISTRY ORDERABL ES Performing Organization Address [facility] de Phone Number [facility] [place] [place] [address] * POCT Glucose (07/15/2017 8:30 AM EDT) Pathologist [facility] POC Glucose 111 65 - 199 mg/dL [facility] Comment: Supplemental ranges: <140 mg/dL before meals <180 mg/dL all other times of the day Blood specimen (specimen) 07/15/2017 8:30 AM EDT 07/15/2017 8:30 AM EDT Sriram Contreras MD POINT OF CARE TEST ORDERABLES Performing Organization Address [facility] Phone Number [facility] [place] [address] * (ABNORMAL) BLOOD GAS 2 ARTERIAL (07/15/2017 4:17 AM EDT) pH Art 7.38 7.35 - 7.45 [facility] pCO2 Art 42 35 - 45 mmHg [facility] pO2 Art 61(L) 85 - 104 mmHg [facility] HCO3 Art 24.6 20.0 - 26.0 mmol/L [facility] BE Art -0.4 -3.0 - 3.0 mmol/L [facility] Hgb Blood Gas 14.0 13.7 - 16.5 gm/dL [facility] O2HB Art 90.6(L) 94.0 - 97.0 % [facility] COHB Art 0.2 % [facility] Comment: Nonsmokers: 0.5-1.5% COHB Smokers: Variable, but usually less than 10% Toxic: 20-30% COHB Lethal: Greater than 60% COHB METHB Art 0.5 <=1.5 % [facility] Na Whole Blood 139 135 - 145 mmol/L [facility] K Whole Blood 4.1 3.5 - 5.0 mmol/L [facility] Comment: Please note: Patients with WBC >100,000 may have falsely elevated Potassium levels. Contact the Clinical Chemistry Laboratory if there are any questions. ICa Whole Blood 1.19 1.15 - 1.33 mmol/L [facility] Comment: Note: ??Total bilirubin higher than 20 mg/dL may lead to falsely low ionized calcium. CL Whole Blood 106 98 - 107 mmol/L [facility] Gluc Whole Bld 130 65 - 199 mg/dL [facility] Comment:Diabetes: >=200 mg/d L plus symptoms. Lactate WB 1.9 0.5 - 2.2 mmol/L [facility] FIO2 Art 35 % [facility] PF Ratio Art 174 [facility] Blood specimen (specimen) 07/15/2017 4:17 AM EDT 07/15/2017 4:17 AM EDT Sriram Contreras MD CHEMISTRY ORDERABL ES Performing Organization Address City/State/[facility] Co de Phone Number [facility] [place] [address] * (ABNORMAL) Differential, Automated (07/15/2017 4:15 AM EDT) Neutrophils % 84.7 % [facility] Neutr Abs (ANC) 12.39(H) 1.70 - 6.10 x10(3)/mc L [facility] Lymphocytes % 6.2 % [facility] Lymphocytes Abs 0.9 0.9 - 3.2 x10(3)/mc L [facility] Monocytes % 8.0 % [facility] Monocyte Abs 1.2(H) 0.3 - 0.9 x10(3)/[facility] LAB[facility] Eosinophils % 0.0 % [facility] Eosinophils Abs 0.0 0.0 - 0.4 x10(3)/[facility] Basophils % 0.1 % [facility] Basophils Abs 0.0 0.0 - 0.1 x10(3)/[facility] LAB[facility] Immature Gran % 1.00 % [facility] Comment: Immature granulocytes(IG's)percentage and absolute count will include metamyelocytes, myelocytes, and promyelocytes. Blood smears from CBCs yielding IG's will be scanned manually for concordance. If this scan disagrees with the automated IG or if promyelocytes are noted, a manual differential will be performed. Patti Gran Abs 0.14(H) 0.00 - 0.04 x10(3)/[facility] LAB[facility] Blood specimen (specimen) 07/15/2017 4:15 AM EDT 07/15/2017 4:28 AM EDT Narrative Resulting Agency Comment Spec In Lab Sriram Contreras MD HEMATOLOGY ORDERAB LES Performing Organization Address City/State/[facility] Co de Phone Number [facility] [place] [address] * (ABNORMAL) Hemogram (07/15/2017 4:15 AM EDT) WBC 14.6(H) 4.0 - 9.5 x10(3)/[facility] LABORATORY RBC 4.16(L) 4.58 - 5.54 x10(6)/[facility] Hemoglobin 13.0(L) 13.7 - 16.5 gm/dL [facility] Hematocrit 38.9(L) 40.5 - 48.5 % [facility] MCV 93.5(H) 82.9 - 93.1 fL [facility] MCH 31.3 27.5 - 32.1 pg [facility] MCHC 33.4 32.0 - 35.7 gm/dL [facility] Platelets 135(L) 145 - 357 x10(3)/[facility] LABORATORY RDWSD 48.8(H) 36.0 - 45.0 fL [facility] RDWCV 14.2(H) 11.4 - 13.8 % [facility] MPV 10.0 7.6 - 12.9 [facility] LABORATORY nRBC % Auto 0.0 % [facility] nRBC Abs Auto 0.000 0.000 - 0.000 x10(3)/[facility] LAB[facility] Blood specimen (specimen) 07/15/2017 4:15 AM EDT 07/15/2017 4:28 AM EDT Narrative Resulting Agency Comment Spec In Lab Sriram Contreras MD HEMATOLOGY ORDERAB LES Performing Organization Address [facility] Co de Phone Number [facility] [place] [address] * Potassium (07/14/2017 8:20 PM EDT) [facility] Signature Potassium 4.4 3.5 - 5.0 mmol/L [facility] Comment: Please note: ??Patients with [...] ORDERABL ES Performing Organization Address [facility] Co de Phone Number [facility] [place] [address] * (ABNORMAL) Magnesium (07/14/2017 8:20 PM EDT) Magnesium 1.08(H) 0.69 - 1.07 mmol/L [facility] Blood specimen (specimen) 07/14/2017 8:20 PM EDT 07/14/2017 8:31 PM EDT Narrative Resulting Agency Comment Spec In Lab Sriram Contreras MD CHEMISTRY ORDERABL ES Performing Organization Address [facility] de Phone Number [facility] [place] [address] * Magnesium (07/14/2017 4:30 PM EDT) Pathologist [facility] Magnesium 0.86 0.69 - 1.07 mmol/L [facility] Blood specimen (specimen) 07/14/2017 4:30 PM EDT 07/14/2017 4:50 PM EDT Narrative Resulting Agency Comment Spec In Lab Sriram Contreras MD CHEMISTRY ORDERABL ES Performing Organization Address [facility] Phone Number [facility] [place] [address] * POCT Glucose (07/14/2017 4:26 PM EDT) [facility] POC Glucose 146 65 - 199 mg/dL [facility] Comment: Supplemental ranges: <140 mg/dL before meals <180 mg/dL all other times of the day Blood specimen (specimen) 07/14/2017 4:26 PM EDT 07/14/2017 4:26 PM EDT Sriram Contreras MD POINT OF CARE TEST ORDERABLES Performing Organization Address [facility] Phone Number [facility] [place] [address] * EKG 12 Lead (07/14/2017 12:37 PM EDT) Pathologist [facility] Ventricular rate 67 BPM MUSE SYSTEM Atrial Rate 67 BPM MUSE SYSTEM P-R Interval 216 ms MUSE SYSTEM QRS Duration 100 ms MUSE SYSTEM Q-T Interval 438 ms MUSE SYSTEM QTC Calculated (Bezet) 462 ms MUSE SYSTEM Calculated P [place] 58 degrees MUSE SYSTEM Calculated R [place] 56 degrees MUSE SYSTEM Calculated T [place] 38 degrees MUSE SYSTEM INTERPRETATION Sinus rhythm with 1st degree A-V block Otherwise normal ECG When compared with ECG of 29-MAR-1997 12:50, [place] interval has increased Confirmed by MD Radha, Daryl ([id number]) on 07/14/2017 5:07:22 PM MUSE SYSTEM 07/14/2017 12:3 7 PM EDT 07/14/2017 5:07 PM EDT Sriram Contreras MD ECG ORDERABLES Performing Organization Address City/[facility]/ZIP Co de Phone Number MUSE SYSTEM * POCT Glucose (07/14/2017 12:05 PM EDT) POC Glucose 147 65 - 199 mg/dL [facility] Comment: Supplemental ranges: <140 mg/dL before meals <180 mg/dL all other times of the day Blood specimen (specimen) 07/14/2017 12:05 PM EDT 07/14/2017 12:05 PM EDT Sriram Contreras MD POINT OF CARE TEST ORDERABLES Performing Organization Address [facility] Co de Phone Number [facility] [place] [address] * POCT Glucose (07/14/2017 8:25 AM EDT) POC Glucose 140 65 - 199 mg/dL [facility] Comment: Supplemental ranges: <140 mg/dL before meals <180 mg/dL all other times of the day Blood specimen (specimen) 07/14/2017 8:25 AM EDT 07/14/2017 8:25 AM EDT Sriram Contreras MD POINT OF CARE TEST ORDERABLES Performing Organization Address City/[facility]/ZIP Co de Phone Number [facility] [place] [place] [address] * (ABNORMAL) Differential, Automated (07/14/2017 12:36 AM EDT) Neutrophils % 90.3 % [facility] Neutr Abs (ANC) 13.17(H) 1.70 - 6.10 x10(3)/[facility] LABORATORY Lymphocytes % 3.8 % [facility] Lymphocytes Abs 0.6(L) 0.9 - 3.2 x10(3)/[facility] LABORATORY Monocytes % 5.4 % [facility] Monocyte Abs 0.8 0.3 - 0.9 x10(3)/[facility] LABORATORY Eosinophils % 0.0 % [facility] Eosinophils Abs 0.0 0.0 - 0.4 x10(3)/[facility] LABORATORY Basophils % 0.1 % [facility] Basophils Abs 0.0 0.0 - 0.1 x10(3)/[facility] LABORATORY Immature Gran % 0.40 % [facility] Comment: Immature granulocytes(IG's)percentage and absolute count will include metamyelocytes, myelocytes, and promyelocytes. Blood smears from CBCs yielding IG's will be scanned manually for concordance. If this scan disagrees with the automated IG or if promyelocytes are noted, a manual differential will be performed. Patti Gran Abs 0.06(H) 0.00 - 0.04 x10(3)/[facility] LABORATORY Blood specimen (specimen) 07/14/2017 12:36 AM EDT 07/14/2017 12:41 AM EDT Narrative Resulting Agency Comment Spec In Lab Sriram Contreras MD HEMATOLOGY ORDERAB LES [facility] [place] [place] [address] * (ABNORMAL) Hemogram (07/14/2017 12:36 AM EDT) WBC 14.6(H) 4.0 - 9.5 x10(3)/[facility] LABORATORY RBC 4.57(L) 4.58 - 5.54 x10(6)/[facility] LAB[facility]ATORY Hemoglobin 14.1 13.7 - 16.5 gm/dL [facility] Hematocrit 42.1 40.5 - 48.5 % [facility] MCV 92.1 82.9 - 93.1 [facility] LABORATORY MCH 30.9 27.5 - 32.1 pg [facility] MCHC 33.5 32.0 - 35.7 gm/dL [facility] Platelets 157 145 - 357 x10(3)/[facility] RDWSD 48.6(H) 36.0 - 45.0 [facility] LABORATORY RDWCV 14.4(H) 11.4 - 13.8 % [facility] MPV 10.2 7.6 - 12.9 [facility] LABORATORY nRBC % Auto 0.0 % [facility] nRBC Abs Auto 0.000 0.000 - 0.000 x10(3)/[facility] LABORATORY Blood specimen (specimen) 07/14/2017 12:36 AM EDT 07/14/2017 12:41 AM EDT Narrative Resulting Agency Comment Spec In Lab Sriram Contreras MD HEMATOLOGY ORDERAB LES Performing Organization Address City/State/[facility] Co de Phone Number [facility] [place] [address] * (ABNORMAL) Magnesium (07/14/2017 12:36 AM EDT) Magnesium 0.65(L) 0.69 - 1.07 mmol/L [facility] Blood specimen (specimen) 07/14/2017 12:36 AM EDT 07/14/2017 12:41 AM EDT Narrative Resulting Agency Comment Spec In Lab Sriram Contreras MD CHEMISTRY ORDERABL ES Performing Organization Address [facility]/ZIP Co de Phone Number [facility] [place] [address] * Phosphorus (07/14/2017 12:36 AM EDT) Phosphorus 3.3 2.5 - 4.5 mg/dL [facility] Blood specimen (specimen) 07/14/2017 12:36 AM EDT 07/14/2017 12:41 AM EDT Narrative Resulting Agency Comment Spec In Lab Sriram Contreras MD CHEMISTRY ORDERABL ES Performing Organization Address [facility] Co de Phone Number [facility] [place] [place] [address] * Prealbumin (07/14/2017 12:36 AM EDT) Pathologist [facility] Prealbumin 23 20 - 40 mg/dL [facility] Comment: Prealbumin levels are generally lower in the pediatric population; adult concentrations are usually attained near puberty. Blood specimen (specimen) 07/14/2017 12:36 AM EDT 07/14/2017 12:45 AM EDT Narrative Resulting Agency Comment Spec In Lab Sriram Contreras MD CHEMISTRY ORDERABL ES Performing Organization Address [facility] Co de Phone Number [facility] [place] [address] * (ABNORMAL) Basic Metabolic Panel (non-fasting) (07/14/2017 12:36 AM EDT) Glucose Lvl 161 65 - 199 mg/dL [facility] Comment:Diabetes: >=200 mg/d L plus symptoms BUN 16 10 - 20 mg/dL [facility] Creatinine 0.97 0.80 - 1.50 mg/dL [facility] Comment: Please note that the pediatric reference intervals supplied above were not validated at [facility]. Results from pediatric patients should be interpreted in conjunction to the patient's age, height and muscle mass. Sodium 144 135 - 145 mmol/L [facility] Potassium 4.5 3.5 - 5.0 mmol/L [facility] Comment: result rechecked- Please note: ??Patients with WBC >100,000 may have falsely elevated Potassium levels. ??For accurate Potassium quantification in these patients send serum separator tube (gold top) for subsequent determinations. ??Contact the Clinical Chemistry Laboratory if there are any questions. Chloride 108(H) 98 - 107 mmol/L [facility] CO2 19(L) 22 - 31 mmol/L [facility] Anion Gap 17(H) 5 - 15 mmol/L [facility] Calcium 7.7(L) 8.5 - 10.5 mg/dL [facility] Estimated GFR >60 >=60 [place] [...] the following links into your internet browser. [email or web address] Blood specimen (specimen) 07/14/2017 12:36 AM EDT 07/14/2017 12:41 AM EDT Narrative Resulting Agency Comment Spec In Lab Sriram Contreras MD CHEMISTRY ORDERABL ES [facility] [place] [place] [address] * (ABNORMAL) Basic Metabolic Panel (non-fasting) (07/13/2017 9:33 PM EDT) Glucose Lvl 147 65 - 199 mg/dL [facility] Comment:Diabetes: >=200 mg/d L plus symptoms BUN 17 10 - 20 mg/dL [facility] Creatinine 1.16 0.80 - 1.50 mg/dL [facility] Comment: Please note that the pediatric reference intervals supplied above were not validated at [facility]. Results from pediatric patients should be interpreted in conjunction to the patient's age, height and muscle mass. Sodium Not Perf 135 - 145 mmol/L [facility] Comment: Unable to quantitate due to sample hemolysis. ??Sample redraw suggested. Called by: michael, Read back by: maddie rucker, Date/Time:07/13/17 22:12. Potassium Not Perf 3.5 - 5.0 mmol/L [facility] Comment: Unable to quantitate due [...] Chloride Not Perf 98 - 107 mmol/L [facility] Comment: Unable to quantitate due to sample hemolysis. ??Sample redraw suggested. Called by: michael Read back by: maddie rucker, Date/Time:07/13/17 22:12. CO2 18(L) 22 - 31 mmol/L [facility] Anion Gap Not Calculated 5 - 15 mmol/L [facility] Calcium 7.3(L) 8.5 - 10.5 mg/dL [facility] Estimated GFR >60 >=60 [facility] Comment: This estimated GFR (eGFR) [...] the following links into your internet browser. [email or web address] Blood specimen (specimen) 07/13/2017 9:33 PM EDT 07/13/2017 9:41 PM EDT Narrative Resulting Agency Comment Spec In Lab Sriram Contreras MD CHEMISTRY ORDERABL ES [facility] [place] [place] [address] * XR Chest PA or AP 1 [...] PM EDT 07/13/2017 7:35 PM EDT Narrative [facility] - 07/13/2017 7:35 PM EDT Specimen requisition ordered. ??Separate Pathology report to follow Sriram Contreras MD PATHOLOGY/CYTOLOGY ORDERABLES Performing Organization Address City/[facility]/[place] [address] * Specimen to Pathology (surgical or derm) (07/13/2017 7:05 PM EDT) AP Specimen 07/13/2017 7:05 PM EDT 07/13/2017 7:05 PM EDT Narrative [facility] - 07/13/2017 7:05 PM EDT Specimen requisition ordered. ??Separate Pathology report to follow Sriram Contreras MD PATHOLOGY/CYTOLOGY ORDERABLES Performing Organization Address [facility] [place] [address] * Specimen to Pathology (surgical or derm) (07/13/2017 6:21 PM EDT) AP Specimen 07/13/2017 6:21 PM EDT 07/13/2017 6:21 PM EDT Narrative [facility] - 07/13/2017 6:21 PM EDT Specimen requisition ordered. ??Separate Pathology report to follow Sriram Contreras MD PATHOLOGY/CYTOLOGY ORDERABLES Performing Organization Address City/[facility]/ZIP Co de Phone Number [facility] [place] [address] * Specimen to Pathology (surgical or derm) (07/13/2017 5:30 PM EDT) AP Specimen 07/13/2017 5:30 PM EDT 07/13/2017 5:30 PM EDT [facility] LAB[facility] - 07/13/2017 5:30 PM EDT Specimen requisition ordered. ??Separate Pathology report to follow Sriram Contreras MD PATHOLOGY/CYTOLOGY ORDERABLES Performing Organization Address City/[facility]/[place] [address] * Specimen to Pathology (surgical or derm) (07/13/2017 5:30 PM EDT) AP Specimen 07/13/2017 5:30 PM EDT 07/13/2017 5:30 PM EDT Narrative [facility] - 07/13/2017 5:30 PM EDT Specimen requisition ordered. ??Separate Pathology report to follow Sriram Contreras MD PATHOLOGY/[place] [address] * Specimen to Pathology (surgical or derm) (07/13/2017 5:30 PM EDT) AP Specimen 07/13/2017 5:30 PM EDT 07/13/2017 5:30 PM EDT Narrative [facility] - 07/13/2017 5:30 PM EDT Specimen requisition ordered. ??Separate Pathology report to follow Sriram Contreras MD PATHOLOGY/CYTOLOGY ORDERABLES Performing Organization Address City/[facility]/[place] [address] * Specimen to Pathology (surgical or derm) (07/13/2017 5:30 PM EDT) AP Specimen 07/13/2017 5:30 PM EDT 07/13/2017 5:30 PM EDT [facility] - 07/13/2017 5:30 PM EDT Specimen requisition ordered. ??Separate Pathology report to follow Sriram Contreras MD PATHOLOGY/CYTOLOGY ORDERABLES Performing Organization Address City/[facility]/[place] [address] * Specimen to Pathology (surgical or derm) (07/13/2017 5:21 PM EDT) AP Specimen 07/13/2017 5:21 PM EDT 07/13/2017 5:21 PM EDT Narrative [facility] - 07/13/2017 5:21 PM EDT Specimen requisition ordered. ??Separate Pathology report to follow Sriram Contreras MD PATHOLOGY/CYTOLOGY ORDERABLES Performing Organization Address City/[facility]/[place] [address] * Specimen to Pathology (surgical or derm) (07/13/2017 5:21 PM EDT) AP Specimen 07/13/2017 5:21 PM EDT 07/13/2017 5:21 PM EDT Narrative [facility] - 07/13/2017 5:21 PM EDT Specimen requisition ordered. ??Separate Pathology report to follow Sriram Contreras MD PATHOLOGY/CYTOLOGY ORDERABLES Performing Organization Address [facility] [place] [address] * Specimen to Pathology (surgical or derm) (07/13/2017 5:21 PM EDT) AP Specimen 07/13/2017 5:21 PM EDT 07/13/2017 5:21 PM EDT Narrative [facility] - 07/13/2017 5:21 PM EDT Specimen requisition ordered. ??Separate Pathology report to follow Sriram Contreras MD PATHOLOGY/CYTOLOGY ORDERABLES Performing Organization Address City/[facility]/[place] [address] * Specimen to Pathology (surgical or derm) (07/13/2017 5:16 PM EDT) AP Specimen 07/13/2017 5:16 PM EDT 07/13/2017 5:16 PM EDT Narrative [facility] - 07/13/2017 5:16 PM EDT Specimen requisition ordered. ??Separate Pathology report to follow Sriram Contreras MD PATHOLOGY/CYTOLOGY ORDERABLES Performing Organization Address City/[facility]/[place] [address] * Specimen to Pathology (surgical or derm) (07/13/2017 5:05 PM EDT) AP Specimen 07/13/2017 5:05 PM EDT 07/13/2017 5:05 PM EDT [facility] - 07/13/2017 5:05 PM EDT Specimen requisition ordered. ??Separate Pathology report to follow Sriram Contreras MD PATHOLOGY/[place] [address] * Specimen to Pathology (surgical or derm) (07/13/2017 5:05 PM EDT) AP Specimen 07/13/2017 5:05 PM EDT 07/13/2017 5:05 PM EDT [facility] - 07/13/2017 5:05 PM EDT Specimen requisition ordered. ??Separate Pathology report to follow Sriram Contreras MD PATHOLOGY/[place] [address] * Specimen to Pathology (surgical or derm) (07/13/2017 4:39 PM EDT) AP Specimen 07/13/2017 4:39 PM EDT 07/13/2017 4:39 PM EDT [facility] - 07/13/2017 4:39 PM EDT Specimen requisition ordered. ??Separate Pathology report to follow Sriram Contreras MD PATHOLOGY/[place] [address] * Specimen to Pathology (surgical or derm) (07/13/2017 4:35 PM EDT) AP Specimen 07/13/2017 4:35 PM EDT 07/13/2017 4:35 PM EDT Narrative [facility] - 07/13/2017 4:35 PM EDT Specimen requisition ordered. ??Separate Pathology report to follow Sriram Contreras MD PATHOLOGY/CYTOLOGY ORDERABLES Performing Organization Address City/[facility] [place] [address] * Specimen to Pathology (surgical or derm) (07/13/2017 4:35 PM EDT) AP Specimen 07/13/2017 4:35 PM EDT 07/13/2017 4:35 PM EDT Narrative [facility] - 07/13/2017 4:35 PM EDT Specimen requisition ordered. ??Separate Pathology report to follow Sriram Contreras MD PATHOLOGY/CYTOLOGY ORDERABLES Performing Organization Address [facility] [place] [address] * Specimen to Pathology (surgical or derm) (07/13/2017 3:52 PM EDT) AP Specimen 07/13/2017 3:52 PM EDT 07/13/2017 3:52 PM EDT Narrative [facility] [facility]ITAL [facility] - 07/13/2017 3:52 PM EDT Specimen requisition ordered. ??Separate Pathology report to follow Sriram Contreras MD PATHOLOGY/CYTOLOGY ORDERABLES Performing Organization Address [facility] [place] [address] * Specimen to Pathology (surgical or derm) (07/13/2017 3:52 PM EDT) AP Specimen 07/13/2017 3:52 PM EDT 07/13/2017 3:52 PM EDT [facility] LABORATORY - 07/13/2017 3:52 PM EDT Specimen requisition ordered. ??Separate Pathology report to follow Sriram Contreras MD PATHOLOGY/CYTOLOGY ORDERABLES Performing Organization Address City/[facility]/ZIP Co de Phone Number [facility] [place] [address] * (ABNORMAL) BLOOD GAS 2 ARTERIAL (07/13/2017 3:46 PM EDT) pH Art 7.31(L) 7.35 - 7.45 [facility] pCO2 Art 37 35 - 45 mmHg [facility] pO2 Art 103 85 - 104 mmHg [facility] HCO3 Art 17.8(L) 20.0 - 26.0 mmol/L [facility] BE Art -8.5(L) -3.0 - 3.0 mmol/L [facility] Hgb Blood Gas 15.1 13.7 - 16.5 gm/dL [facility] O2HB Art 96.6 94.0 - 97.0 % [facility] COHB Art 0.4 % [facility] Comment: Nonsmokers: 0.5-1.5% COHB Smokers: Variable, but usually less than 10% Toxic: 20-30% COHB Lethal: Greater than 60% COHB METHB Art 0.3 <=1.5 % [facility] Na Whole Blood 139 135 - 145 mmol/L [facility] K Whole Blood 4.5 3.5 - 5.0 mmol/L [facility] Comment: Please note: Patients with WBC >100,000 may have falsely elevated Potassium levels. Contact the Clinical Chemistry Laboratory if there are any questions. ICa Whole Blood 1.12(L) 1.15 - 1.33 mmol/L [facility] Comment: Note: ??Total bilirubin higher than 20 mg/dL may lead to falsely low ionized calcium. CL Whole Blood 110(H) 98 - 107 mmol/L [facility] Gluc Whole Bld 118 65 - 199 mg/dL [facility] Comment:Diabetes: >=200 mg/d L plus symptoms. Lactate WB 2.9(H) 0.5 - 2.2 mmol/L [facility] Blood specimen (specimen) 07/13/2017 3:46 PM EDT 07/13/2017 3:46 PM EDT Sriram Contreras MD CHEMISTRY ORDERABL ES [facility] [place] [address] * (ABNORMAL) BLOOD GAS 2 ARTERIAL (07/13/2017 2:06 PM EDT) pH Art 7.32(L) 7.35 - 7.45 [facility] pCO2 Art 32(L) 35 - 45 mmHg [facility] pO2 Art 96 85 - 104 mmHg [facility] HCO3 Art 16.0(L) 20.0 - 26.0 mmol/L [facility] BE Art -10.1(L) -3.0 - 3.0 mmol/L [facility] Hgb Blood Gas 14.0 13.7 - 16.5 gm/dL [facility] O2HB Art 96.1 94.0 - 97.0 % [facility] COHB Art 1.1 % [facility] Comment: Nonsmokers: 0.5-1.5% COHB Smokers: Variable, but usually less than 10% Toxic: 20-30% COHB Lethal: Greater than 60% COHB METHB Art 0.3 <=1.5 % [facility] Na Whole Blood 139 135 - 145 mmol/L [facility] K Whole Blood 3.8 3.5 - 5.0 mmol/L [facility] Comment: Please note: Patients with WBC >100,000 may have falsely elevated Potassium levels. Contact the Clinical Chemistry Laboratory if there are any questions. ICa Whole Blood 1.02(L) 1.15 - 1.33 mmol/L [facility] Comment: Note: ??Total bilirubin higher than 20 mg/dL may lead to falsely low ionized calcium. CL Whole Blood 115(H) 98 - 107 mmol/L [facility] Gluc Whole Bld 111 65 - 199 mg/dL [facility] Comment:Diabetes: >=200 mg/d L plus symptoms. Lactate WB 2.5(H) 0.5 - 2.2 mmol/L [facility] Blood specimen (specimen) 07/13/2017 2:06 PM EDT 07/13/2017 2:06 PM EDT Sriram Contreras MD CHEMISTRY ORDERABL ES [facility] [place] [address] * (ABNORMAL) Comprehensive metabolic panel (non-fasting) (07/13/2017 12:56 PM EDT) Glucose Lvl 155 65 - 199 mg/dL [facility] Comment:Diabetes: >=200 mg/d L plus symptoms BUN 17 10 - 20 mg/dL [facility] Creatinine 1.06 0.80 - 1.50 mg/dL [facility] Comment: Please note that the pediatric reference intervals supplied above were not validated at [facility]. Results from pediatric patients should be interpreted in conjunction to the patient's age, height and muscle mass. Sodium 142 135 - 145 mmol/L [facility] Potassium 5.7(H) 3.5 - 5.0 mmol/L [facility] Comment: Please note: ??Patients with WBC >100,000 may have falsely elevated Potassium levels. ??For accurate Potassium quantification in these patients send serum separator tube (gold top) for subsequent determinations. ??Contact the Clinical Chemistry Laboratory if there are any questions. Chloride 108(H) 98 - 107 mmol/L [facility] CO2 20(L) 22 - 31 mmol/L [facility] Anion Gap 14 5 - 15 mmol/L [facility] Calcium 7.9(L) 8.5 - 10.5 mg/dL [facility] Total Protein 6.2 6.1 - 8.0 gm/dL [facility] Albumin 3.6 3.2 - 5.2 gm/dL [facility] AST 15 0 - 39 unit/L [facility] ALT 13 0 - 55 unit/L [facility] Alk Phos 70 40 - 120 unit/L [facility] Total Bilirubin 0.2 0.2 - 1.3 mg/dL [facility] Estimated GFR >60 >=60 [place] [...] the following links into your internet browser. [email or web address] Blood specimen (specimen) 07/13/2017 12:56 PM EDT 07/13/2017 1:02 PM EDT Narrative Resulting Agency Comment Spec In Lab Sriram Contreras MD CHEMISTRY ORDERABL ES [facility] [place] [place] [address] * (ABNORMAL) BLOOD GAS 2 ARTERIAL (07/13/2017 12:15 PM EDT) pH Art 7.34(L) 7.35 - 7.45 [facility] pCO2 Art 39 35 - 45 mmHg [facility] pO2 Art 68(L) 85 - 104 mmHg [facility] HCO3 Art 20.4 20.0 - 26.0 mmol/L [facility] BE Art -5.4(L) -3.0 - 3.0 mmol/L [facility] Hgb Blood Gas 15.8 13.7 - 16.5 gm/dL [facility] O2HB Art 91.8(L) 94.0 - 97.0 % [facility] COHB Art 0.9 % [facility] Comment: Nonsmokers: 0.5-1.5% COHB Smokers: Variable, but usually less than 10% Toxic: 20-30% COHB Lethal: Greater than 60% COHB METHB Art 0.3 <=1.5 % [facility] Na Whole Blood 138 135 - 145 mmol/L [facility] K Whole Blood 5.7(H) 3.5 - 5.0 mmol/L [facility] Comment: Please note: Patients with WBC >100,000 may have falsely elevated Potassium levels. Contact the Clinical Chemistry Laboratory if there are any questions. ICa Whole Blood 1.17 1.15 - 1.33 mmol/L [facility] Comment: Note: ??Total bilirubin higher than 20 mg/dL may lead to falsely low ionized calcium. CL Whole Blood 109(H) 98 - 107 mmol/L [facility] Gluc Whole Bld 125 65 - 199 mg/dL [facility] Comment:Diabetes: >=200 mg/d L plus symptoms. Lactate WB 3.7(H) 0.5 - 2.2 mmol/L [facility] Blood specimen (specimen) 07/13/2017 12:15 PM EDT 07/13/2017 12:15 PM EDT Sriram Contreras MD CHEMISTRY ORDERABL ES [facility] [place] [place] [address] * Surgical Pathology Report (07/13/2017 12:04 PM EDT) Surgical Pathology Report [id number] ? Location: ICUS; IC14; A The signing [...] ? All other margins are negative. [facility] January 2016 Annual Release Electronically signed [...] iglottic): Green ??Right epiglottis: Blue ??Lateral pharynx: [place] ??Base of tongue mucosa + deep: Blue [...] edge; (6) tumor to closest lateral pharynx ([place]) and deep specimen edges (black); (7) tumor [...] is present. 07/13/17 12:23 Electronically signed by: ??Mey Lockwood MD Verified: ??07/13/2017 ?Pathologist This intraoperative consultation should be interpreted as a preliminary diagnosis pending review of the entire specimen and special studies, if any. [facility] 07/13/2017 12:0 4 PM EDT Sriram Contreras MD PATHOLOGY/CYTOLOGY ORDERABLES Performing Organization Address [facility] de Phone Number [facility] [place] [address] * Specimen to Pathology (surgical or derm) (07/13/2017 12:02 PM EDT) AP Specimen 07/13/2017 12:0 2 PM EDT 07/13/2017 12:02 PM EDT Narrative [facility] - 07/13/2017 12:02 PM EDT Specimen requisition ordered. ??Separate Pathology report to follow Sriram Contreras MD PATHOLOGY/CYTOLOGY ORDERABLES Performing Organization Address [facility] de Phone Number [facility] [place] [place] [address] * (ABNORMAL) BLOOD GAS 2 ARTERIAL (07/13/2017 10:35 AM EDT) pH Art 7.31(L) 7.35 - 7.45 [facility] pCO2 Art 45 35 - 45 mmHg [facility] pO2 Art 87 85 - 104 mmHg [facility] HCO3 Art 22.2 20.0 - 26.0 mmol/L [facility] BE Art -4.0(L) -3.0 - 3.0 mmol/L [facility] Hgb Blood Gas 15.6 13.7 - 16.5 gm/dL [facility] O2HB Art 95.0 94.0 - 97.0 % [facility] COHB Art 0.9 % [facility] Comment: Nonsmokers: 0.5-1.5% COHB Smokers: Variable, but usually less than 10% Toxic: 20-30% COHB Lethal: Greater than 60% COHB METHB Art 0.0 <=1.5 % [facility] Na Whole Blood 138 135 - 145 mmol/L [facility] K Whole Blood 5.0 3.5 - 5.0 mmol/L [facility] Comment: Please note: Patients with WBC >100,000 may have falsely elevated Potassium levels. Contact the Clinical Chemistry Laboratory if there are any questions. ICa Whole Blood 1.20 1.15 - 1.33 mmol/L [facility] Comment: Note: ??Total bilirubin higher than 20 mg/dL may lead to falsely low ionized calcium. CL Whole Blood 108(H) 98 - 107 mmol/L [facility] Gluc Whole Bld 119 65 - 199 mg/dL [facility] Comment:Diabetes: >=200 mg/d L plus symptoms. Lactate WB 2.1 0.5 - 2.2 mmol/L [facility] Blood specimen (specimen) 07/13/2017 10:35 AM EDT 07/13/2017 10:35 AM EDT Sriram Contreras MD CHEMISTRY ORDERABL ES [facility] [place] [address] * ABORH Recheck Status (07/13/2017 6:27 AM EDT) ABORH Recheck Order Order Placed [facility] ABORH Type Recheck Complete [facility] Blood specimen (specimen) 07/13/2017 6:27 AM EDT 07/13/2017 6:38 AM EDT Narrative Resulting Agency Comment Spec In Lab Sriram Contreras MD BLOOD BANK LAB ORD ERABLES Performing Organization Address City/[facility]/ZIP Co de Phone Number [facility] [place] [address] * Antibody screen (07/13/2017 6:27 AM EDT) Ab Screen Interp Negative [facility] Expires at [id number] on: 07/16/2017 [facility] Blood specimen (specimen) 07/13/2017 6:27 AM EDT 07/13/2017 6:43 AM EDT Narrative Resulting Agency Comment Spec In Lab Sriram Contreras MD BLOOD BANK LAB ORD ERABLES Performing Organization Address City/[facility]/ZIP Co de Phone Number [facility] [place] [address] * ABO/Rh Typing (07/13/2017 6:27 AM EDT) ABORH Type O Neg [facility] Blood specimen (specimen) 07/13/2017 6:27 AM EDT 07/13/2017 6:43 AM EDT Narrative Resulting Agency Comment Spec In Lab Sriram Contreras MD BLOOD BANK LAB ORD ERABLES Performing Organization Address [facility]/ZIP Co de Phone Number [facility] [place] [address] documented in this encounter Visit Diagnoses Diagnosis 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, face, and neck Persistent atrial fibrillation Atrial fibrillation QT prolongation Nonspecific abnormal electrocardiogram (ECG) (EKG) Other pulmonary embolism without acute cor pulmonale 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 documented in this encounter Admitting Diagnoses Diagnosis [...] PRN, 1 dose, Starting on 07/17/17 at 2144, Until Wed07/29/17 at 1535, Other, for HR <40, please notify , Shreyas chlorhexidine (PERIDEX) 0.12 % oral solution 15 [...] Given 07/28/2017 9:35 AM EDT 100 mg EPINEPHrine injection solution ONCE PRN, Starting on Wed07/13/17 at 1149, Until Wed07/29/17 at 1535, Intra-Operative (Intra-Procedure), Routine Given 07/13/2017 11:49 AM EDT 1 mg flu vacc (65 yrs+) (PF) (FLUZONE [...] on Wed07/24/17 at 1245, Until Discontinued, Routine Given 07/29/2017 9:22 AM EDT 1 tablet Given 07/28/2017 9:35 AM EDT 1 tablet Given 07/26/2017 9:47 AM EDT 1 tablet lidocaine-EPINEPHrine 1 %-1:200,000 injection ONCE PRN, Starting on Wed07/13/17 at 1444, Until Wed07/29/17 at 1535, Intra-Operative (Intra-Procedure), Routine Given 07/13/2017 2:44 PM EDT 10 mLs 19- Surgical Site melatonin tablet 3 mg 3 mg, Oral, NIGHTLY, First dose on Wed07/29/17 at 0430, Until Discontinued, Routine Given 07/29/2017 4:20 AM EDT 3 mg methylene blue 5 mg/mL (0.5 %) injection ONCE PRN, Starting on Wed07/13/17 at 1128, Until Wed07/13/17 at 2052, Intra-Operative (Intra-Procedure) Given 07/13/2017 11:28 AM EDT 133.4 mg meTOPROLOL (LOPRESSOR) injection 5 mg 5 [...] on Wed07/22/17 at 0900, Until Discontinued, Routine Given 07/29/2017 [...] Stiles RN)1720 (Given - Provider: Jv Valdez, BRENNA)2053 (Given - Provider: Dixie Randhawa RN) 0000 (Not Given - Provider: Dixie Randhawa RN - Reason: Patient/family refused)0451 (Given - Provider: Dixie Randhawa RN)0935 (Given - Provider: Jv Valdez, BRENNA)1235 (Given - Provider: Jeannie Stiles RN)1700 (Given - Provider: Jeannie Stiles RN)2135 (Given - Provider: Abeba Porter, BRENNA) 0000 (Not Given - Provider: Abeba Porter, BRENNA - Reason: Patient/family refused)0358 (Given - Provider: Abeba Porter, BRENNA)0922 (Given - Provider: Radha Colon, BRENNA)1320 (Given - Provider: Radha Colon RN) chlorhexidine (PERIDEX) 0.12 % oral solution 15 mL 15 mL, Oral, 2 TIMES DAILY, First dose on Wed07/13/17 at 2115, Until Discontinued, Swab oral cavity. Ventilator-associated pneumonia prophylaxis, Routine 1055 (Given - Provider: Jeannie Stiles, BRENNA)2052 (Given - Provider: Dixie Randhawa RN) 0936 (Given - Provider: Jv Valdez, RN)213 (Given - Provider: Abeba Porter, BRENNA) 0923 (Given - Provider: Radha Colon RN) enoxaparin (LOVENOX) injection 100 mg 100 mg, Subcutaneous, EVERY 12 HOURS SCHEDULED (2 times per day), First dose on Wed07/27/17 at 1700, Until Discontinued, Routine 1608 (Given - Provider: Jeannie Stiles RN) 0935 (Given - Provider: Jv Valdez, BRENNA)2134 (Given - Provider: Abeba Porter, BRENNA) 1022 (Given - Provider: Radha Colon RN - Comment: missing dose) insulin lispro [...] Valdez, BRENNA) 0922 (Given - Provider: Radha Colon RN) [...] Porter RN) 0923 (Given - Provider: Radha Colon, RN)1321 [...] RN) 0935 (See Alternative - Provider: Jv Valdez, RN) 0923 (See Alternative - Provider: Radha Colon, RN) pantoprazole (PROTONIX) tablet 40 mg(Linked Group 1) 40 mg, Oral, DAILY, First dose on Wed07/14/17 at 0900, Until Discontinued, DO NOT CRUSH OR OPEN If unable to take PO, may give IV 1054 (See Alternative - Provider: Jeannie Stiles RN) 0935 (Given - Provider: Jv Valdez RN) 0923 (Given - Provider: Radha Colon, BRENNA) piperacillin-tazobactam (ZOSYN) 4.5 g vial attach to sodium chloride 0.9% 100 mL Mini-Bag Plus (COMPLETED) 4.5 g, Intravenous, EVERY 8 HOURS, 20 doses, First dose on Wed07/21/17 at 1045, Last dose on Wed07/27/17 at 1845, Administer over 4 Hours, Warning Vesicant/Irritant Medication , Indication for (Active or Suspected): Pneumonia (Health-Care) 0153 (Stopped - Provider: Lorna Browne, BRENNA)0400 (New Bag - Provider: Lorna Browne, BRENNA)0800 (Stopped - Provider: Jeannie Stiles, BRENNA)1125 (New Bag - Provider: Jeannie Stiles RN)1525 (Stopped - Provider: Jeannie Stiles, BRENNA)1857 (New Bag - Provider: Jeannie Stiles, BRENNA) 0025 (Stopped - Provider: Dixie Randhawa RN) [...] Lorna Browne RN)1605 (Stopped - Provider: Jeannie Stiles, BRENNA) PRN Medication Order 07/27/2017 07/28/2017 07/29/2017 albuterol [...] 1535, Other, for HR <40, please notify MD, Routine bisacodyl (DULCOLAX) suppository 10 mg 10 [...] Embolism documented in this encounter Care Teams Telephone Engineer Relationship Specialty Start Date End Date Jovon Sifuentes MD [address] [place] [address] PCP - General 09/30/10 09/10/21 documented as of this encounter
--- OUTSIDE RECORDS SUMMARY | 2024-05-18 11:34 | XMS_ITS | Encounter Summary ---
Author Organization [facility]ly [facility] [place] [address] Care Team Providers Care Assistant Front Desk Manager Name Role Phone Jovon Sifuentes MD Primary Care Provider Encounter Details Date Type Department Care Team (Late st Contact Info) Description 06/28/2017 [place] [phone] Sriram Contreras MD [facility] [place] [address] Social History Tobacco Use Types Packs/Day Years [...] encounter Miscellaneous Notes * Telephone Encounter - Ruben Turner - 06/29/2017 10:59 AM EDT opened in error documented in this encounter Plan of Treatment Upcoming Encounters Date Type Department Care Team (Late st Contact Info) Description 08/01/2024 1:00 PM EDT Office Visit Hematology/Oncology at [address] [phone] Dmitry Bhatti MD [facility] DR HEMATOLOGY/[place] [address] Ellen Mcrae APRN [facility] [place] [address] 08/01/2024 1:30 PM EDT Infusion Hematology Oncology at [address] [phone] documented as of this encounter Visit Diagnoses Not on filedocumented in this encounter Care Teams Assistant Front Desk Manager Relationship Specialty Start Date End Date Jovon Sifuentes MD [address] [place] [address] PCP - General 09/30/10 09/10/21 documented as of this encounter
--- OUTSIDE RECORDS SUMMARY | 2024-05-18 11:34 | XMS_ITS | Encounter Summary ---
Author Organization [facility] Address [facility] [place] [address] Care Team Providers Care Rn Staff Name Role Phone Jovon Sifuentes MD Primary Care Provider [phone] Reason for Visit * Consultation (Urgent) - Closed Specialty Diagnoses / Procedures Referred By Huma t Referred To Contact Hematology and Oncology Diagnoses Throat mass Zafar Madera MD [facility] [place] [address] [facility] [place] [facility] Hem Onc [address] [place] [address] Referral ID Status Reason Start Date Expiration Date V isits Requested Visits Authorized [id number] Closed Consult, Test & Treat 04/07/2017 04/07/2018 1 1 Encounter Details Date Type Department Care Team (Late st Contact Info) Description 04/14/2017 10:00 AM EDT Office Visit H[place] [id number] Geovanna Deleon MD [facility] HEMATOLOGY/[place] [address] Other acute pulmonary embolism without acute cor pulmonale; Pre-op evaluation; Throat mass Social History Tobacco Use Types Packs/Day Years Used Date Smoking Tobacco: Former Comments:quit in 1996,smoked pipe until 5 years ago Sex and Gender Information Value Date Recorded Sex Assigned at Not on file Gender Identity Not on file Sexual Orientation Not on file documented as of this encounter Last Filed Vital Signs Vital Sign Reading Time Taken Comments Blood Pressure 123/62 04/14/2017 9:55 AM EDT Pulse 60 04/14/2017 9:55 AM EDT Temperature 36.6 ??C (97.9 ??F) 04/14/2017 9:55 AM ED T Respiratory Rate 17 04/14/2017 9:55 AM EDT Oxygen Saturation 96% 04/14/2017 9:55 AM EDT Inhaled Oxygen Concentration - - Weight 138.1 kg (304 lb 6.4 oz) 04/14/2017 9:55 AM EDT Height 188 cm (6' 2.02) 04/14/2017 9:55 AM EDT Body Mass Index 39.07 04/14/2017 9:55 AM EDT documented in this encounter Progress Notes * Geovanna Deleon MD - 04/14/2017 10:00 AM EDT [facility] [place] [id number] THROMBOSIS CONSULTATION DATE OF VISIT 04/14/2017 Patient Jose Bee 1950 REFERRING PHYSICIAN Zafar Madera MD PRIMARY CARE PHYSICIAN Jovon Sifuentes MD LOCAL ENT PHYSICIAN Celso Conrad MD REASON FOR CONSULTATION Anticoagulation management for PE and around upcoming throat lesion HISTORY OF THE PRESENT ILLNESS Jose Bee is a 66 y.o. man with history of recent pulmonary embolism, who is seen in consultation at the request of Dr. Madera for anticoagulation management around upcoming biopsy of throat lesion.The history is obtained from the patient, and I have reviewed extensive medical records provided by the referring physician and located in the electronic medical record to fill in gaps in the patient's recollection of events, treatments and outcomes. Mr. Bee reported to feel lousy for a few weeks. On 03/29/2017 he presented with acute onset ofright sided chest pain radiating to the right shoulder, chills. Initially it was thought that this was 2nd to cholecystitis. He underwent a CT abdomen, but then was asked to return the following Wednesday for CT chest which then confirmed pulmonary embolism. He also developed hemoptysis shortly after his first CT. He was started on apxiban 10 gm PO BID for a week and now down to 5 mg PO BID. His hemoptysis has resolved. He still has some right chest pain but not as severe as prior. He denies any shortness of breath, but still overall feels fatigue. He was also treated with antibiotic for pneumonia concurrent to his PE treatment. He denies any leg pain/swelling. Ultrasound doppler was not performed. He was diagnosed with atrial fibrillation 2 years ago, but has never had any symptom. He has been taking aspirin 81 mg PO daily since then, but this was stopped after starting apixaban. In 2007 he was seen by Dr. Maedra for some sensation in throat. Back then, MRI showed no obvious cause of his sensation. No invasive procedure was performed at that time. He has noticed worsening of this throat sensation over the last 2-3 months. He was seen by Dr. Celso Conrad, local ENT.There was a concern of a throat mass Because he is currently on anticoagulant that is associated with bleeding risk, he was [place] [facility] [place]. Madera for possible biopsy of this mass. THROMBOSIS RISK FACTORS Risk Factor Comment Obesity (BMI >30 kg/m2) V/A Y Body mass index is 39.07 kg/(m^2). Diabetes V/A Current smoker V/A Estrogen or estrogen/progestin V/A V/A Inflammatory disease V/A Recent surgery (<3 months) V Recent hospitalization (<3 mo) V Recent travel (<3 mo) V Period of immobility V Documented thrombophilia V Accident/Trauma V/A Cancer or treatment for cancer V/A Blood transfusion V/A Central venous catheter V Family history (1st degree) V/A Varicose veins/venous insuff. V Hypertension A Hyperlipidemia A Vascular disease A V: Risk factor for venous thrombosis; A: Risk factor for arterial thrombosis PAST MEDICAL HISTORY Pulmonary embolism Throat mass Sleep apnea on CPAP BPH Atrial fibrillation OPERATIVE PROCEDURES Quad tendon repair s/p fall Achilles tendon repair Arthroscopic knee surgery Tonsillectomy MEDICATIONS Outpatient Prescriptions Marked as Taking for the 04/14/17 encounter (Office Visit) with Geovanna Deleon MD Medication Sig Dispense Refill ??? tamsulosin (FLOMAX) 0.4 mg Capsule, Sust. Release 24 hr Take 0.4 mg by mouth daily. ??? apixaban (ELIQUIS) 5 mg Tablet Take 5 mg by mouth 2 times daily. ADVERSE DRUG REACTIONS Allergies as of 04/14/2017 - Review Complete 04/07/2017 Allergen Reaction Noted ??? Ibuprofen FAMILY HISTORY No family history of VTE Father of parkinson's disease in his 80. Mother of old age in her 90s. 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 Fevers/chills/sweats No Recent infections Recently treated for pneumonia Unexplained weight loss Weight loss 11 lbs Headache/lightheadedness/syncope No Sinus pain/pressure No Oral sores/lesions/bleeding No Sore throat/dysphagia Sensation in his throat, sometimes felt that medication/food stuck in his throat - overall better over these few weeks Nosebleeds No Cough/SOB/chest pain/heart racing Right sided chest pain, cough, SOB improved Nausea/vomiting/dyspepsia No Abdominal pain No Diarrhea/constipation No Urinary pain, burning, incontinence No Hematuria No Penile discharge/bleeding No Skin rashes/ulcers No Back/joint pain/swelling Chronic knee pain, shoulder pain Leg swelling/pain/redness No Bruising/petechiae/bleeding/melena No Sensory/motor No Polydipsia/polyuria/heat/cold intol No Lumps/bumps/swollen glands No Other No PHYSICAL EXAMINATION BP 123/62 (Patient Position: Sitting) Pulse 60 Temp 36.6 ??C (97.9 ??F) (Temporal) Resp 17 Ht 188 cm (6' 2.02) Wt (!) 138.1 kg (304 lb 6.4 oz) SpO2 96% BMI 39.07 kg/m2 GENERAL: Well-appearing, articulate white male. HEENT: Oropharynx clear; I do not see the tongue or oral lesion. NECK: Supple CHEST/LUNGS: Clear to auscultation/percussion. No rales, rhonchi, wheezes. HEART: Regular rate and rhythm; no murmur, rub, gallop GASTROINTESTINAL: Abdomen soft, non-tender, no hepatosplenomegaly. GENITOURINARY: Exam deferred. EXTREMITIES: No clubbing, cyanosis or edema. No erythema, tenderness or palpable cords. No venous varicosities. No skin discoloration or hemosiderin deposits. MUSCULOSKELETAL: Spine nontender. No acutely inflamed joints. SKIN: No ecchymoses, petechiae, ulcers or rashes. LYMPH: No palpable lymph nodes NEUROLOGIC: Alert, oriented. Speech clear, coherent. No focal deficits noted. PSYCHIATRIC: Appropriate affect, no apparent distress. LABORATORY STUDIES Recent lab 03/29/2017 WBC 7.8, Hg 15.1, platelet 231 BUN 15 Creatinine 1.[address] scan from outside hospital CT neck 03/18/2017 Irregular wall thickening in the right pharynx at the level of epiglottis, likely neoplastic process CT chest 03/29/2017 Right lower lobe pulmonary embolism Small right sided pleural effusion Bilateral basilar infiltrates atelectasis vs pneumonia IMPRESSION Jose Bee is a 66 y.o. man with history of throat mass, recent pulmonary embolism who is here for anticoagulation management around upcoming biopsy of his throat mass. He was recently diagnosed with pulmonary embolism about 2-3 weeks ago. At that time he was also treated for pneumonia, although it is hard to determine if he truly had a pneumonia at that time or if his symptom was all related to pulmonary embolism. He was also found to have a new right sided throat mass which could be malignant. Malignancy itself is associated with risk for developing VTE. He has been doing well on apixban with resolution of some of his PE symptoms including hemoptysis. His cough, chest pain, shortness of breath have all improved. He has no active bleeding while on apixaban. We discussed that in general we would recommend to wait for at least 3 months for an elective surgery, but in his case, I think that it would be necessary to have the biopsy of this lesion earlier than later given that this could be malignant and be the cause of his pulmonary embolism. He still hasa pending PET/CT and cardiology evaluation prior to pending biopsy. I expect that his biopsy will likely be done toward the end of the month which will be about 4-6 weeks out from his acute pulmonaryembolism. I think that the risk for VTE recurrence at that time will be lower and he can undergo biopsy of his throat lesion at that time with minimal interruption of anticoagulation as possible. Apixaban is a short acting oral anticoagulant with half-life of 8-12 hours. I recommend him to stop apixaban 48 hours before his surgery and resume apixaban 12-24 hours post biopsy depending on the concern of bleeding risk. If there is a concern os postop bleeding, we can also reduce the dose of apixaban to 2.5 mg PO BID for the first 24-48 hours. At this current time I see no indication to perform thrombophilia testing and the result of the testing won't affect current management of anticoagulation. If his throat mass is malignant, then his PE can be explained by malignancy. Then thrombophilia testing won't be indicated. In regarding his history of atrial fibrillation, he has a pending evaluation with our cardiology team. He has never been symptomatic from afib and denies any history of cardioembolic events in the past. He was previously on aspirin 81 mg PO daiIy for afib. I told him that he can hold off aspirin while on apixaban. Apixaban itself is superior to aspirin to prevent cardioembolic stroke from PAF. I think that his risk of stroke from afib within the 48-72 hours interruption of his anticoagulation is low, but will defer final management/ risk discussion to cardiology team. I plan to see him back in August for follow-up to determine the duration of anticoagulation then. If his PE is cancer associated, then I would recommend at least 6 months of anticoagulation or longer depending on the cancer therapy. PLAN/RECOMMENDATIONS 1. OK to proceed with throat mass biopsy - would recommend to stop apixaban 48 hours before procedure - resume apixaban 5 mg PO BID starting 12-24 hours depending on concern of post procedure bleeding - may reduce apixaban dose to 2.5 mg PO BID the first 24-48 hours if concern of bleeding risk 2. Pending cardiology evaluation for atrial fibrillation 3. Hold aspirin + NSAIDs while on apixaban to minimize bleeding risk. 4. Follow-up in Aug 2017 to determine duration of anticoagulation. Jose Bee had the opportunity to ask questions and indicated that all his questions were answered to his satisfaction. He will follow up with me in Aug 2017. Geovanna Deleon MD [facility] documented in this encounter Plan of Treatment Upcoming Encounters Date Type Department Care Team (Late st Contact Info) Description 08/01/2024 1:00 PM EDT Office Visit Hematology/Oncology at [address] [phone] Dmitry Bhatti MD [facility] HEMATOLOGY/[place] [address] Ellen Mcrae APRN [facility] [place] [address] 08/01/2024 1:30 PM EDT Infusion Hematology Oncology at [address] [phone] Scheduled Referrals Name Type Priority Associated Diagnoses Order Schedule Referral to Hematology and Oncology Outpatient Referral Routine Throat mass Ordered: 04/07/2017 documented as of this encounter Visit Diagnoses Diagnosis Other acute pulmonary embolism without acute cor pulmonale Pre-op evaluation Preoperative examination, unspecified Throat mass Swelling, mass, or lump in head and neck documented in this encounter Care Teams Rn Staff Relationship Specialty Start Date End Date Jovon Sifuentes MD [address] [place] [address] PCP - General 09/30/10 09/10/21 documented as of this encounter
--- OUTSIDE RECORDS SUMMARY | 2024-05-18 11:34 | XMS_ITS | Encounter Summary ---
[place] [address] Care Team Providers Care A/C Technician Name Role Phone Jovon Sifuentes MD Primary Care Provider [phone] Reason for Referral * Consultation (Urgent) - Closed Specialty Diagnoses / Procedures Referred By Huma valladares Referred To Contact Hematology and Oncology Diagnoses Throat mass Zafar Madera MD [facility] [place] [address] [facility] [address] [place] [address] Referral ID Status Reason Start Date Expiration Date V isits Requested Visits Authorized [id number] Closed Consult, Test & Treat 04/07/2017 04/07/2018 1 1 Reason for Visit * Reason Comments Advice Only had a sencation for years in the throat,lately had trouble swallowing,chocking, went to Dr. Elkins, had a cat scan done,was put on antibiotic,had reaction to biotic and taken off that,had anoth ct-scan thought gallbladder,then told he had pnemonia, on a wednesday started throwing up blood,was told that pt had a blood clot in lungs,was put on elequis, went back to see Gurmeet and told him a 3 cc mass in the throat. could not remove it so pt was referred here Other pt states he has a b one growth in the right ear, Dr Elkins thought should come out * Consultation (Routine) - Closed Specialty Diagnoses / Procedures Referred By Huma valladares Referred To Contact Otolaryngology Diagnoses hypertrophy of right lingual tonsil, hisotry of smoking and dysphagia Celso Elkins, DO [address] [place] [address] Zafar Madera MD [facility] [place] [address] Referral ID Status Reason Start Date Expiration Date Visits Re quested Visits Authorized [id number] Closed 03/17/2017 03/17/2018 1 1 Encounter Details Date Type Department Care Team (Late st Contact Info) Description 04/06/2017 3:00 PM EDT Office [place] [address] Zafar Madera MD [facility] [place] [address] Throat mass Social History Tobacco Use Types Packs/Day Years Used Date Smoking Tobacco: Former Comments:quit in 1996,smoked pipe until 5 years ago Sex and Gender Information Value Date Recorded Sex Assigned at Not on file Gender Identity Not on file Sexual Orientation Not on file documented as of this encounter Last Filed Vital Signs Vital Sign Reading Time Taken Comments Blood Pressure 117/79 04/06/2017 3:17 PM EDT Pulse 52 04/06/2017 3:17 PM EDT Temperature - - Respiratory Rate 20 04/06/2017 3:17 PM EDT Oxygen Saturation 96% 04/06/2017 3:17 PM EDT Inhaled Oxygen Concentration - - Weight 137.3 kg (302 lb 11.2 oz) 04/06/2017 3:17 PM EDT Height - - Body Mass Index - - documented in this encounter Progress Notes * Hilton Cheney PA - 04/06/2017 3:00 PM EDT [facility] Otolaryngology - Head and Neck Surgery Hilton Cheney PA-C 04/06/17 10:11 PM [place], [place] [address] Office Patient Name: Jose Bee Date of : 1950 PCP: Jovon Sifuentes MD Chief Complaint: Mass in throat History of Present Illness: Jose Bee is a 66 y.o. year old male with a history of Atrial Fibrillation and recent Pulmonary Embolism, on Eliquis, who was seen today at the request of Celso Elkins in consultation for throat mass. Has felt something in his throat for years. [place] worsened in last couple of months. Feels lump on side of throat when swallowing. Sometimes food or pills will get hung up while swallowing. Had difficulty breathing recently, felt related to recent pneumonia and pulmonary embolism diagnoses. Treated with antibiotics and Eliquis respectively. Increased throat clearing. Occasional bilateral ear pain and itching, right > left. Went to ENT in [facility], ordered CT:right throat mass. Denies fevers, chills, or other constitutional symptoms. Head and neck symptom survey >Symptom ?? >Comments Dysphagia y See HPI Odynophagia n See HPI Voice change or hoarseness y Raspy the last couple of weeks Breathing difficulties n Otalgia y See HPI Hemoptysis n ?? Adenopathy n Weight loss n Taste n Intact, but decreased appetite Numbness n Loose Dentition n ?? 10 point Review of Systems was normal except for pertinent positives and negatives included in the History of Present Illness. Past Medical and Surgical History Atrial fibrillation Pulmonary Embolism Esomeprazole Aspirin 81mg Eliquis Allergies: Ibuprofen Surgical History: Tonsillectomy as child Family and Social History Family History: No family history on file. Social History: Tobacco: history of about 28 pack year history, some pipe smoking more recently. ETOH: history of 30 drinks/week x 15 years. Occupation: [employer]. Lives in [place] [facility] [address] Social History Social History ??? Marital status: Spouse name: N/A ??? Number of children: N/A ??? Years of education: N/A Occupational History ??? Not on file. Social History Main Topics ??? Smoking status: Former Smoker ??? Smokeless tobacco: Not on file Comment: quit in 1996,smoked pipe until 5 years ago ??? Alcohol use Not on file ??? Drug use: Not on file ??? Sexual activity: Not on file Other Topics Concern ??? Not on file Social History Narrative ??? No narrative on file Physical Exam Physical Examination: Vitals: Blood pressure 117/79, pulse 52, resp. rate 20, weight (!) 137.3 kg (302 lb 11.2 oz), SpO2 96 %. General: Well dressed and well nourished. Breathing comfortably without stridor. No acute distress. Face: Full and symmetric facial movement. No dysmorphic facial features. Eyes: Periocular structures and conjunctiva healthy without lesions. Pupils are equal, round, and reactive to light. Extraocular movement is full and intact. No evidence of nystagmus. Ears: Left: EAC narrowing with exostoses noted, as well as obstructing cerumen. Tympanic membrane obstructed. Right: EAC narrowing with exostoses noted, as well as obstructing cerumen. Tympanic membrane obstructed. Nose: Patent anteriorly with adequate airflow, healthy pink mucosa. Mouth: Lips and gingiva pink, moist, without lesions. Tongue, floor of mouth, and buccal mucosa soft without lesions or masses. Hard palate without lesions. Pharynx: Soft palate without lesions. Uvula is midline. Mild oropharynx asymmetry. Neck: Left-sided, somewhat soft, mobile 1.5 cm level 2 node noted, otherwise neck is soft, supple, without significant lymphadenopathy. Thyroid gland without masses or asymmetry. Trachea midline without deviation. Lungs: Clear to auscultation bilaterally without wheezes. Heart: Regular rate and rhythm without murmur. Neurologic: Cranial nerves II-XII intact and symmetric. Responds appropriately to questions. Psych: Normal mood and affect. Procedures PROCEDURE NOTE: Flexible Fiberoptic Laryngoscopy: Indications: Evaluation for mucosal lesion of the upper airway. Topical anesthetic and decongestant applied to the nasal cavity. The scope was passed through the nasal cavity, through the nasopharynx, and into the oropharynx. Patient tolerated the procedure well without any complications. Nasal Cavity: Normal appearing mucosa, no obstructions or lesions noted. Nasopharynx: No lesions or masses noted. Oropharynx: Base of tongue/vallecula asymmetric with abnormal appearing lingual tonsillar tissue onthe right. Larynx: Epiglottis is thin and non-edematous. Arytenoids are symmetric. True cords appear to demonstrate full and symmetric motion; incompletely visualized. Hypopharynx: Piriform sinuses are clear bilaterally, without evidence of masses or lesions. No significant pooling of secretions was noted. No overt laryngeal penetration or aspiration. ASSESSMENT & RECOMMENDATIONS Jose Bee is a 66 y.o. year old male with a history of Atrial Fibrillation and recent Pulmonary Embolism, on Eliquis, who was seen today in consultation for throat mass. Had felt something in throat for years, recently worsened. Associated symptoms of dysphagia, otalgia and right sided adenopathy. Went to local ENT, had CT showing mass in throat. Biopsies not performed at OSH due to concern of patient recent anticoagulation initiation. Discussion of need for Direct Laryngoscopy with Biopsy to get a diagnosis, as well as meeting with Hematology first for them to weigh in on the patient's optimal anticagulation therapy perioperatively. Also discussed necessity of PET/CT scan for staging purposes. Recommendations: 1. Patient to have arranged Hematology appointment. 2. Patient to have PET/CT. 3. Patient to meet with Dr. Madera on same day as above visit/imaging and discuss/plan the biopsyprocedure. Hilton Cheney PA-C [place], [place] [address] Office @Today@ 10:11 PM * Zafar Madera MD - 04/06/2017 3:00 PM EDT Images from the original note were not included. Subjective: Patient ID: Jose Bee is a 66 y.o. male. HPI Jose Bee is seen in consultation from Celso Elkins and Jovon Sifuentes MD in regards to newly diagnosied right base of tongue lesion The following records were reviewed: office records The history is obtained through patient interview, review of relevant records, and/or discussion with referring provider. This patient with multiple medical problems and [...] in the right base of tongue region. THere was a plan to take the patient [...] the use of his eliquist. He denies orthopnea Has snoring and some symptoms of KORI but no formal diagnosis Past Medical History: Diagnosis Date ??? Arthritis ??? BPH (benign prostatic hyperplasia) ??? Cataract, right eye ??? ED (erectile dysfunction) ??? Hypothyroidism ??? Pulmonary embolism No past surgical history on file. Current Outpatient Prescriptions: ??? tamsulosin (FLOMAX) 0.4 mg Capsule, Sust. Release 24 hr, Take 0.4 mg by mouth daily., Disp: , Rfl: ??? apixaban (ELIQUIS) 5 mg Tablet, Take 5 mg by mouth 2 times daily., Disp: , Rfl: ??? aspirin 81 mg Tablet, Chewable, Take 81 mg by mouth daily., Disp: , Rfl: Allergies Allergen Reactions ??? Ibuprofen CIS - Nausea/Vomiting Patient Active Problem List Diagnosis Code ??? Lesion of tongue K14.8 No family history on file. There is no pertinent family history of otolaryngologic problems Review of Systems: A complete review of constitutional, eyes, cardiovascular, respiratory, GI, , musculo-skeletal, skin, endocrine, psychiatric, hematologic, lymphatic and immunologic systems is completed and is as noted in the HPI. All other systems are otherwise negative. Social History Social History ??? Marital status: Spouse name: N/A ??? Number of children: N/A ??? Years of education: N/A Occupational History ??? Not on file. Social History Main Topics ??? Smoking status: Former Smoker ??? Smokeless tobacco: Not on file Comment: quit in 1996,smoked pipe until 5 years ago ??? Alcohol use Not on file ??? Drug use: Not on file ??? Sexual activity: Not on file Other Topics Concern ??? Not on file Social History Narrative Review of Systems Objective: Physical Exam Constitutional: [...] to the submandibular gland. Carotid plaque. I do not have his chest CT Assessment and Plan: In view of the patient's symptoms and for complete evaluation, a flexible laryngoscopy is indicated. +++++++++++++++++++++++++++++++++++++++++++++++++++++++++++++++++++ Procedure: Flexible Laryngoscopy Indications: Evaluation for mucosal lesion of the upper airway Procedure and findings: The nasal mucosae are topicalized with pontacaine/afrin anesthesia. The flexible endoscope is passed through the nasal cavities and evaluation of the nasopharynx, oropharynx and larynx is performed. All of the visualized mucosae are normal except for the following: Normal nose and nasopharynx. 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 Case is complicated by his recent PE and now being on anticoagulants. DIsucssed that he would need a formal EUA and biopsies done however I am concerned may have significant bleeding since on anticoagulants. Discussed that in view of his recent PE, stopping his anticoagulants may put him at increased risk of having fiurther PEs. He is also supposed to get evaluated in regards to his heart and it does not appear that these appointments have been made yet. His a fib will require separate management and place him at some anesthetic risk We discussed planning a PET-CT to help in staging of his diease. I will also plan a hematology consult in regards to optimal management of his recent PE and if additional investigations are necessaryprior to planning a formal endoscopy with biopsies. He may need to be converted to lovenox temporarily while he has the endoscopy and biopsies done, placing him at risk of bleeding. asked if we could also coordinate the cardiology appt at the same time, explained I would do my best documented in this encounter Plan of Treatment Upcoming Encounters Date Type Department Care Team (Late st Contact Info) Description 08/01/2024 1:00 PM EDT Office Visit Hematology/Oncology at [address] [phone] Dmitry Bhatti MD [facility] DR HEMATOLOGY/[place] [address] Ellen Mcrae APRN [facility] [place] [address] 08/01/2024 1:30 PM EDT Infusion Hematology Oncology at [address] [phone] Scheduled Referrals Name Type Priority Associated Diagnoses Order Schedule Referral to Hematology and Oncology Outpatient Referral Routine Throat mass Ordered: 04/07/2017 documented as of this encounter Visit Diagnoses Diagnosis Throat mass Swelling, mass, or lump in head and neck documented in this encounter Care Teams A/C Technician Relationship Specialty Start Date End Date Jovon Sifuentes MD [address] [place] [address] PCP - General 09/30/10 09/10/21 documented as of this encounter
--- OUTSIDE RECORDS SUMMARY | 2024-05-18 11:34 | XMS_ITS | Encounter Summary ---
[place] [address] Care Team Providers Care Coating Operator Name Role Phone Jovon Sifuentes MD Primary Care Provider [phone] Reason for Visit * Diagnostic Test (Routine) - Closed Specialty Diagnoses / Procedures Referred By Contac t Referred To Contact Radiology Diagnoses Other acute pulmonary embolism without acute cor pulmonale Carcinoma of base of tongue Procedures PET CT Standard Skull Base to Mid-Thigh Kaiden Dos Santos MD [facility] [place] [address] [place] [address] Referral ID Status Reason Start Date Expiration Date V isits Requested Visits Authorized [id number] Closed Specialty Service Requested 06/10/2017 08/08/2017 2 2 Encounter Details Date Type Department Care Team (Latest Contact Info) Description 06/17/2017 12:03 PM EDT - 06/17/2017 11:59 PM EDT Hospital Encounter [place] [address] Kaiden Dos Santos MD [address] [place] [phone] Discharge Disposition: Home Social History Tobacco Use [...] PM EDT Office Visit Hematology/Oncology at [address] [phone] Dmitry Bhatti MD [facility] HEMATOLOGY/[place] [address] Ellen Mcrae APRN [facility] [place] [address] 08/01/2024 1:30 PM EDT Infusion Hematology Oncology at [address] [phone] documented as of this encounter Procedures Procedure Name Priority Date/Time Associated Diagnosis Comments NM PET CT SKULL BASE TO MID-THIGH ([facility]) Routine 06/17/2017 2:04 PM EDT Other acute pulmonary embolism without acute cor pulmonale Carcinoma of base of tongue documented in this encounter Results * PET CT Standard [...] staging exam TECHNIQUE: Following IV injection of 20-sjswfs-9-deoxyglucose (FDG) a standard uptake of approximately 60 [...] staging exam TECHNIQUE: Following IV injection of 65-foxtsg-1-deoxyglucose (FDG) astandard uptake of approximately 60 minutes, [...] on filedocumented in this encounter Care Teams Coating Operator Relationship Specialty Start Date End Date Jovon Sifuentes MD [address] [place] [address] PCP - General 09/30/10 09/10/21 documented as of this encounter
--- OUTSIDE RECORDS SUMMARY | 2024-05-18 11:34 | XMS_ITS | Encounter Summary ---
[place] [address] Care Team Providers Care Catalyst Plant Supervisor Name Role Phone Jovon Sifuentes MD Primary Care Provider Encounter Details Date Type Department Care Team (Latest Contact Info) Description 06/02/2017 Multidisciplinary Ca re Committee Hematology [place] [address] Kaiden Dos Santos MD [address] [place] [id number] Social History Tobacco Use Types Packs/Day Years [...] as of this encounter Progress Notes * Kaiden Dos Santos MD - 06/02/2017 6:45 AM EDT Head & Neck - Tumor Board Note Date Presented: 06/03/2017 Presenting Physician: Melanie Madera Diagnosis/Tumor Site: SCCa R tonsil Is this Metastatic Disease: No Synopsis of History/HPI: 66 yo M with 2-3 mo hx of R throat discomfort with referred otalgia. (prior consult with Dr Madera 2007 for globus sensation, with office workup showing nothing; treated for GERD.) Noted by Dr Conrad to have R base of tongue and tonsil lesions and was due to be takento the OR for endoscopy but developed acute PE and referred back to Dr Madera. Exam: R base of tongue fullness. History of heavy EtOH, some cigarette and cigar exposure. Exam: R neck with 1.5 cm node; office FOL shows subtle R BOT fullness. Taken to the OR for EUA: R BOT lesion into lower R tonsil, no bailey invasion into epiglottis. Imagin03/[address]: R BOT mass and R tonsil, preepiglottic fat clear, tumor abuts epiglottis but no clear invasion. No clearly malignant nodes. 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 Tumor ~2.5 cm. Stage: cT2 N0 Clinical Data (Exams, Labs, etc.): Molecular Pathology Results: HPV in process Clinical Trial Availability: none ([id number] recently closed to accrual) Options Discussed: consider TORS vs radiation alone. Recommendations: med and rad onc consults; PET/CT to be arranged to make sure PE is not a sign of metastatic disease. DISCLAIMER: The patient was discussed and the tumor board made recommendations but it is ultimatelyup to the treatment provider(s) and the patient to determine the patient???s care. documented in this encounter Plan of Treatment Upcoming Encounters Date Type Department Care Team (Late st Contact Info) Description 08/01/2024 1:00 PM EDT Office Visit Hematology/Oncology at [address] [phone] Dmitry Bhatti MD [facility] HEMATOLOGY/[place] [address] Ellen Mcrae APRN [facility] [place] [address] 08/01/2024 1:30 PM EDT Infusion Hematology Oncology at [address] [phone] documented as of this encounter Visit Diagnoses Not on filedocumented in this encounter Care Teams Catalyst Plant Supervisor Relationship Specialty Start Date End Date Jovon Sifuentes MD [address] [place] [address] PCP - General 09/30/10 09/10/21 documented as of this encounter
--- OUTSIDE RECORDS SUMMARY | 2024-05-18 11:34 | XMS_ITS | Encounter Summary ---
[place] [address] Care Team Providers Care Automotive Brake Technician Name Role Phone Jovon Sifuentes MD Primary Care Provider [phone] Encounter Details Date Type Department Care Team (Late Contact Info) Description 06/21/2017 Telephone [place] [phone] Tremayne De León Social History Tobacco Use Types Packs/Day Years [...] encounter Miscellaneous Notes * Telephone Encounter - Tremayne De León - 06/21/2017 9:18 AM EDT Booked surgery on the phone, confirmed surgery date of 07/13, instruction packetandfollow up mailed documented in this encounter Plan of Treatment Upcoming Encounters Date Type Department Care Team (Late st Contact Info) Description 08/01/2024 1:00 PM EDT Office Visit Hematology/Oncology at [address] [phone] Dmitry Bhatti MD [facility] DR HEMATOLOGY/[place] [address] Ellen Mcrae APRN [facility] [place] [address] 08/01/2024 1:30 PM EDT Infusion Hematology Oncology at [address] [phone] documented as of this encounter Visit Diagnoses Not on filedocumented in this encounter Care Teams Automotive Brake Technician Relationship Specialty Start Date End Date Jovon Sifuentes MD [address] [place] [address] PCP - General 09/30/10 09/10/21 documented as of this encounter
--- OUTSIDE RECORDS SUMMARY | 2024-05-18 11:34 | XMS_ITS | Encounter Summary ---
[place] [address] Care Team Providers Care Recreation Establishment Manager Name Role Phone Jovon Sifuentes MD Primary Care Provider Reason for Referral * Diagnostic Test (Routine) - Closed Specialty Diagnoses / Procedures Referred By Contac t Referred To Contact Radiology Diagnoses Other acute pulmonary embolism without acute cor pulmonale Carcinoma of base of tongue Procedures PET CT Standard Skull Base to Mid-Thigh Kaiden Dos Santos MD [facility] [place] [address] [place] [address] Referral ID Status Reason Start Date Expiration Date V isits Requested Visits Authorized [id number] Closed Specialty Service Requested 06/10/2017 08/08/2017 2 2 Reason for Visit * Diagnostic Test (Routine) - Closed Specialty Diagnoses / Procedures Referred By Contac t Referred To Contact Radiology Diagnoses Other acute pulmonary embolism without acute cor pulmonale Carcinoma of base of tongue Procedures PET CT Standard Skull Base to Mid-Thigh Kaiden Dos Santos MD [facility] [place] [address] [place] [address] Referral ID Status Reason Start Date Expiration Date V isits Requested Visits Authorized [id number] Closed Specialty Service Requested 06/10/2017 08/08/2017 2 2 Encounter Details Date Type Department Care Team (Latest Contact Info) Description 06/17/2017 12:02 PM EDT Hospital Encounter [place] [phone] Kaiden Dos Santos MD [address] [place] [id number] Other acute pulmonary embolism without acute cor pulmonale; Carcinoma of base of tongue Discharge Disposition: Home [...] PM EDT Office Visit Hematology/Oncology at [address] [phone] Dmitry Bhatti MD [facility] DR HEMATOLOGY/[place] [address] Ellen Mcrae APRN [facility] [place] [address] 08/01/2024 1:30 PM EDT Infusion Hematology Oncology at [address] [phone] documented as of this encounter Procedures Procedure Name Priority Date/Time Associated Diagnosis Comments NM PET CT SKULL BASE TO MID-THIGH ([facility]) Routine 06/17/2017 2:04 PM EDT Other acute pulmonary embolism without acute cor pulmonale Carcinoma of base of tongue POCT GLUCOSE Routine 06/17/2017 12:14 PM EDT documented in this encounter Results * PET [...] Thank you for referring this patient to [facility]. I have personally reviewed the image(s) and the residents interpretation and agree with the findings, Lizy Padgett at 06/17/2017 3:54 PM Narrative 06/17/2017 3:54 PM EDT EXAMINATION: PET CT STANDARD SKULL BASE TO MID-THIGH CLINICAL HISTORY: head/neck cancer, initial staging exam TECHNIQUE: Following IV injection of 62-fjmtid-4-deoxyglucose (FDG) a standard uptake of approximately 60 [...] staging exam TECHNIQUE: Following IV injection of 86-cndnqz-7-deoxyglucose (FDG) astandard uptake of approximately 60 minutes, [...] Thank you for referring this patient to [facility]. I have personally reviewed the image(s) and the residents interpretationand agree with the findings, Lizy Faganumair at 06/17/2017 3:54 PM Kaiden Dos Santos MD IMG PET ORDERABLES * POCT Glucose (06/17/2017 12:14 PM EDT) POC Glucose 82 65 - 199 mg/dL [facility] Comment: Supplemental ranges: <140 mg/dL before meals <180 mg/dL all other times of the day Blood specimen (specimen) 06/17/2017 12:14 PM EDT 06/17/2017 12:14 PM EDT Kaiden Dos Santos MD POINT OF CARE TEST O RDERABLES [facility] [place] [address] documented in this encounter Visit Diagnoses Diagnosis Other acute pulmonary embolism without acute cor pulmonale Carcinoma of base of tongue Malignant neoplasm of base of tongue documented in this encounter Administered Medications Inactive Administered Medications - up to 3 most recent administrations Medication Order MAR Action Action Date Dose Rate Site fludeoxyglucose (F-18) FDG injection 17.2 mCi 17.2 mCi, Intravenous, ONCE PRN, 1 dose, Starting on Shabana 06/17/17 at 1225, Until Shabana 06/17/17 at 1226, Per Protocol, Routine Given 06/17/2017 12:26 PM EDT 17.2 mCi Left Arm documented in this encounter Care Teams Recreation Establishment Manager Relationship Specialty Start Date End Date Jovon Sifuentes MD [address] [place] [address] PCP - General 09/30/10 09/10/21 documented as of this encounter
--- OUTSIDE RECORDS SUMMARY | 2024-05-18 11:34 | XMS_ITS | Encounter Summary ---
Author Organization [place] [address] Care Team Providers Care Filter Operator Name Role Phone Jovon Sifuentes MD Primary Care Provider Encounter Details Date Type Department Care Team (Late Contact Info) Description 04/09/2017 Telephone [place] [phone] Vane Cardona Social History Tobacco Use Types Packs/Day Years Used Date Smoking Tobacco: Former Comments:quit in 1996,smoked pipe until 5 years ago Sex and Gender Information Value Date Recorded Sex Assigned at Not on file Gender Identity Not on file Sexual Orientation Not on file documented as of this encounter Miscellaneous Notes * Telephone Encounter - Vane Cardona - 04/09/2017 2:34 PM EDT PET safety questions documented in this encounter Plan of Treatment Upcoming Encounters Date Type Department Care Team (Late Contact Info) Description 08/01/2024 1:00 PM EDT Office Visit Hematology/Oncology at [address] [phone] Dmitry Bhatti MD [facility] HEMATOLOGY/[place] [address] Ellen Mcrae APRN [facility] [place] [address] 08/01/2024 1:30 PM EDT Infusion Hematology Oncology at [address] [phone] documented as of this encounter Visit Diagnoses Not on filedocumented in this encounter Care Teams Filter Operator Relationship Specialty Start Date End Date Jovon Sifuentes MD [address] [place] [address] PCP - General 09/30/10 09/10/21 documented as of this encounter
--- OUTSIDE RECORDS SUMMARY | 2024-05-18 11:34 | XMS_ITS | Encounter Summary ---
[place] [address] Care Team Providers Care Clean In Places Operator Name Role Phone Jovon Sifuentes MD Primary Care Provider Encounter Details Date Type Department Care Team (Latest Contact Info) Description 06/18/2017 Multidisciplinary Ca re Committee [place]ematology [place] [address] Kaiden Dos Santos MD [address] [place] [id number] Social History Tobacco Use Types Packs/Day Years [...] Notes * Kaiden Dos Santos MD - 06/18/2017 10:56 AM EDT Head & Neck - Tumor Board Note Date Presented: 06/24/2017 Presenting Physician: Kristin Contreras Diagnosis/Tumor Site: SCCa R tonsil Is this Metastatic Disease: No Synopsis of History/HPI: 66 yo M with 2-3 mo hx of R throat discomfort with referred otalgia. (prior consult with Dr Madera 2008 for globus sensation, with office workup showing nothing; treated for GERD.) Noted by Dr Conrad to have R base of tongue and tonsil lesions and was due to be takento the OR for endoscopy but developed acute PE and referred back to Dr Madera. Exam: R base of tongue fullness; 1.5 cm neck node. History of heavy EtOH, some cigarette and cigar exposure. Exam: R neck with 1.5 cm node; office FOL shows subtle R BOT fullness Options Discussed: consider TORS vs radiation alone. Recommendations: med and rad onc consults; PET/CT to be arranged to make sure PE is not a sign of metastatic disease Imaging: CT 03/2017: R BOT and R tonsil tumor, abuts hyoid but pre-epi fat clear. PET/CT: informative at primary. 'Warm' R parotid node, similar to 2008, small. LEFT zone II node appears benign and unchanged vs 2008. Peripheral R anterolateral lung nodule, 5 mm. Pathology/Histology: p16(+) SCCa. Stage: Clinical Data (Exams, Labs, etc.): Molecular Pathology Results: Clinical Trial Availability: none Options Discussed: definitive RT alone vs TORS. Per Dr Contreras, appears to be good candidate for TORS with neck dissection. Board favors this approach. Recommendations: resection. DISCLAIMER: The patient was discussed and the tumor board made recommendations but it is ultimatelyup to the treatment provider(s) and the patient to determine the patient???s care. documented in this encounter Plan of Treatment Upcoming Encounters Date Type Department Care Team (Late st Contact Info) Description 08/01/2024 1:00 PM EDT Office Visit Hematology/Oncology at [address] [phone] Dmitry Bhatti MD [facility] HEMATOLOGY/[place] [address] Ellen Mcrae APRN [facility] [place] [address] 08/01/2024 1:30 PM EDT Infusion Hematology Oncology at [address] [phone] documented as of this encounter Visit Diagnoses Not on filedocumented in this encounter Care Teams Clean In Places Operator Relationship Specialty Start Date End Date Jovon Sifuentes MD [address] [place] [address] PCP - General 09/30/10 09/10/21 documented as of this encounter
--- OUTSIDE RECORDS SUMMARY | 2024-05-18 11:34 | XMS_ITS | Encounter Summary ---
[place] [address] Care Team Providers Care Maintenance Painter Apprentice Name Role Phone Jovon Sifuentes MD Primary Care Provider Reason for Referral * Consultation (Routine) - Specialty Diagnoses / Procedures Referred By Huma valladares Referred To Contact Hematology and Oncology Diagnoses Cancer of base of tongue Zafar Madera MD [facility] [place] [address] [facility] Hem Onc [address] [place] [address] Referral ID Status Reason Start Date Expiration Date V isits Requested Visits Authorized [id number] Consult, Test & Treat 04/27/2017 04/27/2018 1 1 * Consultation (Routine) - Closed Specialty Diagnoses / Procedures Referred By Huma valladares Referred To Contact Radiation Oncology Diagnoses Cancer of base of tongue Zafar Madera MD [facility] DR [place]ARY[place] [address] [facility] [place] [address] Referral ID Status Reason Start Date Expiration Date V isits Requested Visits Authorized [id number] Closed Consult, Test & Treat 04/27/2017 04/27/2018 1 1 Reason for Visit * Reason Comments Follow-up Encounter Details Date Type Department Care Team (Late st Contact Info) Description 04/27/2017 11:40 AM EDT Office Visit [place] [address] Zafar Madera MD [facility] [place] [address] Cancer of base of tongue Social History [...] - Inhaled Oxygen Concentration - - Weight 139.3 kg (307 lb) 04/27/2017 12:39 PM EDT Height 193 cm (6' 4) 04/27/2017 12:39 PM EDT Body Mass Index 37.37 04/27/2017 12:39 PM EDT documented in this encounter Progress Notes * Zafar Madera MD - 04/27/2017 11:40 AM EDT Images from the original note [...] symptoms of KORI but no formal diagnosis. Since last visit has done well, no new complaints in regards to H&N, no hemotysis. Was evaluated by Dr Geovanna Deleon in hematology who feels it is safe to temporarily stop the Eliquist. He has an upcoming appt with cardiology on Wednesday. No change in his neck. Past Medical History: Diagnosis Date ??? Arthritis ??? BPH (benign prostatic hyperplasia) ??? Cataract, right eye ??? ED (erectile dysfunction) ??? Hypothyroidism ??? Pulmonary embolism No past surgical history on file. Current Outpatient Prescriptions: ??? CIALIS 10 mg [...] Diagnosis Code ??? Lesion of tongue K14.8 ??? Acute pulmonary embolism I26.99 ??? Benign prostatic hyperplasia N40.0 ??? Atrial fibrillation I48.91 No family history on file. There is [...] recent PE and now being on anticoagulants. It is felt that he can stop his eliquist temporarily and we discussed discontinuing anticoagulants as recommended by Dr Deleon We will plan a f/u post op as well as consultations with Lizabeth Dos Santos and Daniel. Discussed that these cancers likely are best treated with chemorads. Consent signed Discussed also potential anesthetic risks. His cardiology consult will hopefully not reveal any newissue. Discussed again potential non surgery related risks. documented in this encounter Plan of Treatment Upcoming Encounters Date Type Department Care Team (Late st Contact Info) Description 08/01/2024 1:00 PM EDT Office Visit Hematology/Oncology at [address] [phone] Dmitry Bhatti MD [facility] HEMATOLOGY/[place] [address] Ellen Mcrae APRN [facility] MEDICAL [place] [address] 08/01/2024 1:30 PM EDT Infusion Hematology Oncology at [address] [phone] Scheduled Referrals Name Type Priority Associated Diagnoses Orde r Schedule Referral to Radiation Oncology Outpatient Referral Routine Cancer of base of tongue Ordered: 04/27/2017 Referral to Head and Neck Oncology Outpatient Referral Routine Cancer of base of tongue Ordered: 04/27/2017 documented as of this encounter Procedures Procedure Name Priority Date/Time Associated Diagnosis Comments BIOPSY, OROPHARYNX Routine 04/27/2017 12:42 PM EDT documented in this encounter Visit Diagnoses Diagnosis 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 documented in this encounter Care Teams Maintenance Painter Apprentice Relationship Specialty Start Date End Date Jovon Sifuentes MD [address] [place] [address] PCP - General 09/30/10 09/10/21 documented as of this encounter
--- OUTSIDE RECORDS SUMMARY | 2024-05-18 11:34 | XMS_ITS | Encounter Summary ---
[place] [address] Care Team Providers Care Panel Cutter Name Role Phone Jovon Sifuentes MD Primary Care Provider Reason for Referral * Diagnostic Test (Routine) - Closed Specialty Diagnoses / Procedures Referred By Contac t Referred To Contact Radiology Diagnoses Cancer of base of tongue Procedures CT Neck Soft Tissue w Contrast (Generic) Sriram Contreras MD [facility] [place] [address] [facility] [place] [address] Referral ID Status Reason Start Date Expiration Date V isits Requested Visits Authorized [id number] Closed Specialty Service Requested 06/17/2017 06/17/2018 1 1 Reason for Visit * Reason Comments Establish Care Here to discuss surg daisy options like TORS for tonsil cancer Encounter Details Date Type Department Care Team (Late st Contact Info) Description 06/17/2017 4:40 PM EDT Office Visit [place] [phone] Sriram Contreras MD [facility] [place] [address] Cancer of base of tongue Social History [...] Sign Reading Time Taken Comments Blood Pressure 145/93 06/17/2017 4:13 PM EDT Pulse 75 06/17/2017 4:13 PM EDT Temperature - - Respiratory Rate - - Oxygen Saturation - - Inhaled Oxygen Concentration - - Weight 140.6 kg (310 lb) 06/17/2017 4:13 PM EDT Height 190.5 cm (6' 3) 06/17/2017 4:13 PM EDT Body Mass Index 38.75 06/17/2017 4:13 PM EDT documented in this encounter Progress Notes * Sriram Contreras MD - 06/17/2017 4:40 PM EDT [facility] NEW PATIENT CONSULTATION I was asked to see Jose Bee in consultation by Zafar Madera for right base of tongue cancer. History was obtained through review of the relevant records, discussion with referring physician and/or patient interview. 66 yo M with 2-3 mo hx of R throat discomfort with referred otalgia. (prior consult with Dr Madera 2007 for globus sensation, with office workup showing nothing; treated for GERD.) Noted by Dr Conrad to have R base of tongue and tonsil lesions and was due to be taken to the OR for endoscopy but developed acute PE and referred back to Dr Madera who noted R neck with 1.5 cm node; office FOL shows subtle R BOT fullness. Taken to the OR for EUA: Findings: Exophytic tumor at right tongue base extending onto tonsil and lateral pharyngeal wall laterally and extending onto lingual surface epiglottis posteriorly. Tumor approximately 2.5 cm in diameter, does not appear to cross midline. DIAGNOSIS A - Left tongue base, biopsy: [...] tonsil, biopsy: Minimally keratinizing squamous cell carcinoma. ?? Patient staged as a T2N0M0 SCCa. Had recent staging PET/CT, however which demonstrated possible uptake in bilateral cervical nodes: HEAD/NECK: FDG avid irregular soft tissue mass seen at the right base of tongue (axial image 68). Several small FDG avid prominent bilateral cervical lymph nodes, for example see axial image 67 of the head and neck series (just lateral to the right sternocleidomastoid muscle and posterior to the left submandibular gland). Normal activity throughout the head. ?? CHEST: Normal activity in all soft tissue [...] with atelectasis and multivessel coronary atherosclerotic calcifications. ?? ABDOMEN/PELVIS: Normal activity in all soft tissue regions. No significant interval CT visualized findings, including again noted approximately 3 cm right upper pole renal cyst, punctate nonobstructive calculus within the midpole the left kidney, multiple bilateral parapelvic renal cysts, and tiny periumbilical fat-containing hernia. Surgical clips also seen within the scrotum. ?? SKELETON/EXTREMITIES: Normal marrow activity in all regions of the axial and visualized appendicular skeleton. Anterior wedging at the thoracolumbar junction resulting in kyphotic curvature as well as multilevel degenerative changes noted. ?? IMPRESSION 1. Right base of tongue hypermetabolic mass consistent with known primary malignancy. 2. Several mildly FDG avid prominent bilateral cervical lymph nodes, suspicious for jacqueline metastases. 3. Indeterminate CT visualized 6 mm right middle lobe nodule, likely below the sensitivity of PET, attention on follow-up dedicated breath-hold chest CT in 6 months. 4. No additional suspected sites of distant metastatic disease. Patient currently reports globus sensation with some dysphagia. PROBLEM LIST Patient Active Problem List Diagnosis Code ??? Carcinoma of base of tongue C01 ??? Acute pulmonary embolism I26.99 ??? Benign prostatic hyperplasia N40.0 ??? Atrial fibrillation I48.91 ??? KORI on CPAP G47.33, Z99.89 ??? Adult BMI 30+ E66.8 PAST MEDICAL HISTORY Past Medical History: Diagnosis [...] 5 mg by mouth 2 times daily. Current Facility-Administered Medications on File Prior to Visit Medication Dose Route Frequency Provider Last Rate Last Dose ??? [COMPLETED] fludeoxyglucose (F-18) FDG injection 17.2 mCi 17.[address] PRN [address] Cote MD 17.2 mCi at 06/17/17 1226 ALLERGIES Allergies Allergen Reactions ??? Ibuprofen CIS - Nausea/Vomiting ??? Clindamycin Other (See Comments) Memory issues. ROS Pertinent positive findings discussed above. No other findings on review of constitutional visual, cardiovascular, respiratory, gastrointestinal, genitourinary, musculoskeletal, dermatologic, neurological, psychiatric, endocrine, hematologic or immunologic systems. PHYSICAL EXAMINATION Vitals: Blood pressure (!) 145/93, pulse 75, height (!) 190.5 cm (6' 3), weight (!) 140.6 kg (310 lb). General: No acute distress Face: Normocephalic and atraumatic Eyes: Extraocular movement is full and intact. No dysconjugate gaze. No evidence of nystagmus. Periocularstructures and conjunctiva healthy without lesions. Ears: Normal exam of the external ear. Nose: Normal external exam. Mouth: Lips and gingiva pink, moist, without lesions. Gums/dentition healthy. Tongue and floor of mouth soft without lesions or masses. Hard palate without lesions. Tongue protrusion is symmetric. Pharynx: Normal exam of the soft palate, lateral pharyngeal wall, and posterior pharynx, s/p tonsillectomy. Salivary: Normal exam of the parotid and submandibular glands. Neck: Soft supple without significant lymphadenopathy. Thyroid gland without masses or asymmetry. Tracheamidline without deviation. Resp: Breathing comfortably without stridor or retractions. Normal respirations. CV: Normal carotid pulses. MSK: Normal neck range of motion, no trismus. Skin: Skin survey of the head and neck is without concerning lesion. Neurologic: Cranial nerves II-XII intact and symmetric. AxOx3, responds appropriately to questions. Psych: Normal mood and affect. PROCEDURES Procedure Flexible Fiberoptic Laryngoscopy Indication Cancer oropharynx Description Informed verbal consent obtained and time out performed. A flexible laryngoscope was used to evaluate bilateral nasal cavity, nasopharynx, oropharynx, hypopharynx and larynx. The examination was recorded on the Tele[employer] Unit and uploaded to the [employer]. Findings Nasal cavity normal Nasopharynx normal Oropharynx Tongue base tumor, right side extends down into the vallecula, does not extend into the pyriform sinus. Does not cross midline. Larynx normal Hypopharynx normal REVIEW OF IMAGES/STUDIES CT and PET/CT reviewed with tongue base tumor noted. ASSESSMENT/RECOMMENDATIONS T2N? SCCa of the right base of tongue extending into the vallecula. This tumor would be amenable to resection via transoral approach. I reviewed this option with the patient, risks of surgery including dental injury, numbness, taste disturbance, dysphagia, need for g-tube, cancer recurrence, need for tracheostomy, other neurovascular injury, inability to completelyresect tumor. Will need to review recent PET/CT in tumor board to determine how best to address the neck althoughhe would require a right neck dissection regardless. The main question would be need for adjuvant treatment such as radiation therapy which ultimately he may need based on final pathology and this was discussed with patient and , as well as possible need for adjuvant chemotherapy. I would favor scheduling in I to take advantage of intraoperative imaging which may help to ensure completeness of resection. I appreciate the opportunity to be involved in Mr. Bee's care. SRIRAM CONTRERAS MD 06/17/2017 documented in this encounter Plan of Treatment Upcoming Encounters Date Type Department Care Team (Late st Contact Info) Description 08/01/2024 1:00 PM EDT Office Visit Hematology/Oncology at [address] [phone] Dmitry Bhatti MD [facility] HEMATOLOGY/[place] [address] Ellen Mcrae APRN [facility] [place] [address] 08/01/2024 1:30 PM EDT Infusion Hematology Oncology at [address] [phone] documented as of this encounter Procedures Procedure Name Priority Date/Time Associated Diagnosis Comments LARYNGOSCOPY,MICRO,LASE R EXCISION Routine 06/17/2017 6:45 PM EDT Cancer of base of tongue PHARYNGECTOMY, LIMITED Routine 06/17/2017 6:45 PM EDT Cancer of base of tongue GLOSSECTOMY,PARTIAL,WIT H UNILATERAL RADICAL NECK DISSECTION Routine 06/17/2017 6:45 PM EDT Cancer of base of tongue [...] tongue documented in this encounter Care Teams Panel Cutter Relationship Specialty Start Date End Date Jovon Sifuentes MD [address] [place] [id number] PCP - General 09/30/10 09/10/21 documented as of this encounter
--- OUTSIDE RECORDS SUMMARY | 2024-05-18 11:34 | XMS_ITS | Encounter Summary ---
Author Organization Formerly [facility] [place] [address] Care Team Providers Care Time Signal Wirer Name Role Phone Jovon Sifuentes MD Primary Care Provider [phone] Encounter Details Date Type Department Care Team (Late Contact Info) Description 05/03/2017 Telephone [place] [phone] Rosa Buitrago Social History Tobacco Use Types Packs/Day Years Used Date Smoking Tobacco: Former Cigarettes Q uit: 1995 Sex and Gender Information Value Date Recorded Sex Assigned at Not on file Gender Identity Not on file Sexual Orientation Not on file documented as of this encounter Miscellaneous Notes * Telephone Encounter - Rosa Buitrago - 05/03/2017 1:59 PM EDT Surgery confirmed and scheduled for 05/24/17 documented in this encounter Plan of Treatment Upcoming Encounters Date Type Department Care Team (Late Contact Info) Description 08/01/2024 1:00 PM EDT Office Visit Hematology/Oncology at [address] [phone] Dmitry Bhatti MD [facility] HEMATOLOGY/[place] [address] Ellen Mcrae APRN [facility] [place] [address] 08/01/2024 1:30 PM EDT Infusion Hematology Oncology at [address] [phone] documented as of this encounter Visit Diagnoses Not on filedocumented in this encounter Care Teams Time Signal Wirer Relationship Specialty Start Date End Date Jovon Sifuentes MD [address] [place] [address] PCP - General 09/30/10 09/10/21 documented as of this encounter
--- OUTSIDE RECORDS SUMMARY | 2024-05-18 11:35 | XMS_ITS | Encounter Summary ---
Author Organization [facility] Address [address] [place] [address] Care Team Providers Care Still Photographer Name Role Phone Jovon Sifuentes MD Primary Care Provider [phone] Encounter Details Date Type Department Care Team (Late st Contact Info) Description 10/08/2020 Lab Requisition [facility] Pathology & Laboratory Medicine - [address] [address] Outr Resulting Lab, Provider Social History Tobacco Use Types Packs/Day Years Used Date Smoking Tobacco: Never Assessed Sex and Gender Information Value Date Recorded Sex Assigned at Not on file Gender Identity Not on file Sexual Orientation Not on file documented as of this encounter Plan of Treatment Not on file documented as of this encounter Procedures Procedure Name Priority Date/Time Associated Diagnosis Comments DO NOT ORDER STANDALONE - BROAD COVID TEST Today 10/08/2020 10:12 EST COVID-19 TESTING Routine 10/08/2020 10:1 2 EST documented in this encounter Results * DO NOT ORDER STANDALONE - BROAD COVID TEST (10/08/2020 10:12 EST) COVID-19 rt-PCR Result NEGATIVE Negative 10/10/2020 10:28 EST [facility] Comment: 2019-novel Coronavirus (2019-nCoV) not detected by the qRT-PCR assay. Consider testing for other respiratory viruses or re-collecting for 2019-nCoV testing. Note: Optimum timing for peak viral levels during infections caused by 2019-nCoV have not been determined. Collection of multiple specimens from the same patient may be necessary to detect the virus. Limitations Positive results are indicative of active infection with SARS-CoV-2 but do not rule out bacterial infection or co-infection with other viruses. The agent detected may not be the definite cause of disease. In addition, detection of viral RNA may not indicate the presence of infectious virus or that SARS-CoV-2 is the causative agent for clinical symptoms. Negative results do not preclude SARS-CoV-2 infection and should not be used as the sole basis for patient management decisions. Negative results must be combined with clinical observations, patient history, and epidemiological information. False negative results may also occur if amplification inhibitors are present in the specimen or if inadequate numbers of organisms are present in the specimen. Optimum specimen types and timing for peak viral levels during infections caused by SARS-CoV-2 have not been fully determined. Collection of multiple specimens (types and time points) from the same patient may be necessary to detect the virus. The test was validated for use with upper respiratory specimens obtained via nasopharyngeal or oropharyngeal swabs in VTM, UTM, M4, M5, M6, saline, and MTM media. The performance of this test has not been established for other specimens. Specimens collected using other FDA recommended Specimen Collection Materials listed in the FDA COVID-19 Diagnostic [employer] communication (February 01, 2020) are processed with the caveat that they were not all validated for use with this test and the result must be interpreted in this context. Furthermore, a false negative results may occur if a specimen is improperly collected, transported or handled. If the virus mutates in the RT-PCR target region, SARS-CoV-2 may not be detected or may be detected less predictably. Inhibitors or other types of interference may produce a false negative result. An interference study evaluating the effect of common cold medications was not performed. This test is not FDA-cleared but its performance characteristics were established by our CLIA-certified, CAP-accredited, high complexity laboratory in accordance with CLIA regulations, College [employer] (CAP) guidelines (Jan 25, 2020), and FDA guidance (Jan 06, 2020). This test is only for use under the Food and Drug Administration's Emergency Use Authorization. Swab ENTIRE NASOPHARYNX / Unknown 10/08/2020 10:12 EST 10/08/2020 16:36 EST Provider Outr Resulting Lab MICROBIOLOGY - GENERAL ORDERABLES [facility] [place], [place] * COVID-19 TESTING (10/08/2020 10:12 EST) COVID-19 rt-PCR Result NEGATIVE Negative 10/10/2020 10:28 EST [facility] Comment: 2019-novel Coronavirus (2019-nCoV) not detected by the qRT-PCR assay. Consider testing for other respiratory viruses or re-collecting for 2019-nCoV testing. Note: Optimum timing for peak viral levels during infections caused by 2019-nCoV have not been determined. Collection of multiple specimens from the same patient may be necessary to detect the virus. Limitations Positive results are indicative of active infection with SARS-CoV-2 but do not rule out bacterial infection or co-infection with other viruses. The agent detected may not be the definite cause of disease. In addition, detection of viral RNA may not indicate the presence of infectious virus or that SARS-CoV-2 is the causative agent for clinical symptoms. Negative results do not preclude SARS-CoV-2 infection and should not be used as the sole basis for patient management decisions. Negative results must be combined with clinical observations, patient history, and epidemiological information. False negative results may also occur if amplification inhibitors are present in the specimen or if inadequate numbers of organisms are present in the specimen. Optimum specimen types and timing for peak viral levels during infections caused by SARS-CoV-2 have not been fully determined. Collection of multiple specimens (types and time points) from the same patient may be necessary to detect the virus. The test was validated for use with upper respiratory specimens obtained via nasopharyngeal or oropharyngeal swabs in VTM, UTM, M4, M5, M6, saline, and MTM media. The performance of this test has not been established for other specimens. Specimens collected using other FDA recommended Specimen Collection Materials listed in the FDA COVID-19 [employer] communication (February 01, 2020) are processed with the caveat that they were not all validated for use with this test and the result must be interpreted in this context. Furthermore, a false negative results may occur if a specimen is improperly collected, transported or handled. If the virus mutates in the RT-PCR target region, SARS-CoV-2 may not be detected or may be detected less predictably. Inhibitors or other types of interference may produce a false negative result. An interference study evaluating the effect of common cold medications was not performed. This test is not FDA-cleared but its performance characteristics were established by our CLIA-certified, CAP-accredited, high complexity laboratory in accordance with CLIA regulations, College of [employer] (CAP) guidelines (Jan 25, 2020), and FDA guidance (Jan 06, 2020). This test is only for use under the Food and Drug Administration's Emergency Use Authorization. Performing Lab [facility] [place] 10/10/2020 10:28 EST [facility] Swab 10/08/2020 10:1 2 EST 10/08/2020 16:36 EST Provider Outr Resulting Lab MICROBIOLOGY - GENERAL ORDERABLES [facility] [address] [place] [address] [facility] [place], [place] documented in this encounter Visit Diagnoses Not on filedocumented in this encounter Care Teams Still Photographer Relationship Specialty Start Date End Date Jovon Sifuentes MD [address] [place] [address] PCP - General 09/05/09 documented as of this encounter
--- OUTSIDE RECORDS SUMMARY | 2024-05-18 11:35 | XMS_ITS | Encounter Summary ---
Author Organization [facility] Address [address] [place] [address] Care Team Providers Care Manager Multicultural Name Role Phone Jovon Sifuentes MD Primary Care Provider [phone] Encounter Details Date Type Department Care Team (Late st Contact Info) Description 07/31/2020 Lab Requisition [facility] Pathology & Laboratory Medicine - [address] [address] Outr Resulting Lab, Provider Social History Tobacco [...] Procedure Name Priority Date/Time Associated Diagnosis Comments PSA TOTAL, DIAGNOSTIC Routine 07/30/2020 14:40 EDT documented in this encounter Results * PSA TOTAL, DIAGNOSTIC (07/30/2020 14:40 EDT) PSA 4.5 0.0 - 6.5 ng/mL 07/31/2020 19:55 EDT [facility] Blood VENOUS BLOOD / Unknown 07/30/2020 14:40 EDT 07/31/2020 17:10 EDT Narrative [facility] - 07/31/2020 19:55 EDT NOTE: Serum PSA concentration should not be interpreted as absolute evidence for the presence or absence of malignant disease. Assayed on Siemens ADVIA [employer] XPT using chemiluminescent technology.??Values obtained by using different assay methods cannot be used interchangeably. Provider Outr Resulting Lab CHEMISTRY & BLOOD GAS ORDERABLES [facility] [address] [place] [address] documented in this encounter Visit Diagnoses Not on filedocumented in this encounter Care Teams Manager Multicultural Relationship Specialty Start Date End Date Jovon Sifuentes MD [address] [place] [address] PCP - General 09/05/09 documented as of this encounter
--- OUTSIDE RECORDS SUMMARY | 2024-05-18 11:35 | XMS_ITS | Encounter Summary ---
[place] [address] Care Team Providers Care Trains Service Conductor Name Role Phone Jovon Sifuentes MD Primary Care Provider [phone] Reason for Visit * Reason Comments Acrochordon Encounter Details Date Type Department Care Team (Late st Contact Info) Description 02/16/2011 11:30 AM EDT Office Visit Dermatology [address] [facility] [address] [place] [address] Alex Diaz MD [address] [facility] [place] [address] Acrochordons (Primary Dx) Social History Tobacco Use Types Packs/Day Years Used Date Smoking Tobacco: Never Assessed Sex and Gender Information Value Date Recorded Sex Assigned at Not on file Gender Identity Not on file Sexual Orientation Not on file documented as of this encounter Progress Notes * Alex Diaz MD - 02/16/2011 12:09 PM EDT Problem: Follow up for removal of tags. Jose follows up for removal of his tags. He also mentions while he is here that the rash seemed to come back over this weekend while he was cutting some wood on his right shoulder and right arm. He did not get the CeraVe Cream and he has not been using anything topically. He did do a use test with the Calamine Lotion. Physical examination today reveals tags present about the base of the neck left and right and in the right axillary vault. Assessment & Plan: Tags. a. After obtaining patient consent, the site was sites were anesthetized and then electrodesiccated. b. Post treatment instructions given. c. Return to clinic p.r.n. Irritant dermatitis, right arm and right forearm/shoulder. a. Recommended that the patient obtain and use CeraVe Cream on a twice weekly basis for the next 2-3 weeks then D/C. documented in this encounter Plan of Treatment Upcoming Encounters Date Type Department Care Team (Late st Contact Info) Description 08/01/2024 1:00 PM EDT Office Visit Hematology/Oncology at [address] [phone] Dmitry Bhatti MD [facility] [address] HEMATOLOGY/[place] [address] Ellen Mcrae APRN [facility] [place] [address] 08/01/2024 1:30 PM EDT Infusion Hematology Oncology at [address] [phone] documented as of this encounter Visit Diagnoses Diagnosis Acrochordons- Primary Unspecified hypertrophic and atrophic condition of skin documented in this encounter Care Teams Trains Service Conductor Relationship Specialty Start Date End Date Jovon Sifuentes MD [address] [place] [address] PCP - General 09/30/10 09/10/21 documented as of this encounter
--- OUTSIDE RECORDS SUMMARY | 2024-05-18 11:35 | XMS_ITS | Encounter Summary ---
Author Organization [facility] Address [address] [place] [address] Care Team Providers Care Data Operations Director Name Role Phone Jovon Sifuentes MD Primary Care Provider [phone] Encounter Details Date Type Department Care Team (Late st Contact Info) Description 09/25/2009 Orders Only [address] [address] Mario Medel MD [address] [place], [place] [phone] Social History Tobacco Use Types Packs/Day Years Used Date Smoking Tobacco: Never Assessed Sex and Gender Information Value Date Recorded Sex Assigned at Not on file Gender Identity Not on file Sexual Orientation Not on file documented as of this encounter Plan of Treatment Not on file documented as of this encounter Procedures Procedure Name Priority Date/Time Associated Diagnosis Comments SURGICAL PATHOLOGY Routine 09/25/2009 0:00 EST documented in this encounter Results * SURGICAL PATHOLOGY (09/25/2009 0:00 EST) Pathology Report: SURGICAL PATHOLOGY REPORT ? Reports generated via electronic interface contain original data; ? however they are lacking the format of the original report. ? Caution should be taken when reading/interpreti ng unformatted reports. ? Name: ? JOSE BEE ? Accession #: ? [id number] ? : ? 1950 (Age: 58) ??M ? Collect Date: ? 09/25/2009 ? Location: ? [facility] ? Receive Date: ? 09/25/2009 ? Provider: MARIO CARCAMOO MD ? Copy to: JOVON SIFUENTES MD ? Final Pathologic Diagnosis: ? A. ?Colon, ascending, biopsy: ? 1. ??Tubular adenoma. ? B. ?? Colon, transverse, biopsy: ? 1. ??Tubular adenoma. ? C. ?? Colon, descending, biopsy: ? 1. ??Tubular adenoma. ? D. ?Rectum, biopsy: ? 1. ?? Hyperplastic polyp(s). ? Document reviewed and electronically signed by: ? Gavin Rodriguez MD ? Report ??Date: 09/27/2009 10:20 ? By the signature above, the attending physician certifies that he/she has ? personally conducted a gross and/or microscopic examination of the described ? specimens and rendered or confirmed the above diagnosis. ? Specimen(s) Received: ? A. ?Ascending colon polyp (#1) ? B. ? Transverse colon polyp (#2) ? C. ? Descending colon polyp (#3) ? D. ? Rectal polyps x2 (#3) ? Clinical History: ? H/O colon adenoma ? Gross Description: ? Received in [facility]'s fixative labelled Jose Bee and #1 ? ascending colon polyp are three biopsies which vary in size from 0.1 cm in ? diameter up to 0.3 x 0.2 x 0.2 cm. ??The specimens are submitted intact as (A). ? Received in [facility]'s fixative labelled Jose Bee and #2 ? transverse colon polyp is a 0.2 x 0.2 x 0.2 cm biopsy. ??The specimen is ? submitted intact as (B). ? Received in [facility]'s fixative labelled Jose Bee and #3 ? descending colon polyp are two biopsies measuring 0.3 x 0.2 x 0.1 cm and 0.4 x 0.2 x 0.2 cm. ??The specimens are submitted intact as (C). ? Received in [facility]'s fixative labelled Jose Bee and #4 ??rectal ?? polyps x2 are two biopsies measuring 0.3 x 0.2 x 0.2 cm and 0.3 x 0.3 x 0.2 cm. The specimens are submitted intact as (D). ??(Noemi Church)/mms ? End of Report ? DANNIE MATOS 09/25/2009 09/25/2009 16: 24 EST Mario Medel MD PATHOLOGY ORDERABLES Performing Organization Address City/State/[facility] Co de Phone Number DANNIE MATOS [address] [place] [address] documented in this encounter Visit Diagnoses Not on filedocumented in this encounter Care Teams Data Operations Director Relationship Specialty Start Date End Date Jovon Sifuentes MD [address] [place] [address] PCP - General 09/05/09 documented as of this encounter
--- OUTSIDE RECORDS SUMMARY | 2024-05-18 11:35 | XMS_ITS | Encounter Summary ---
Author Organization [facility] Address [address] [place] [address] Care Team Providers Care Automotive Shop Foreman Name Role Phone Jovon Sifuentes MD Primary Care Provider [phone] Encounter Details Date Type Department Care Team (Late st Contact Info) Description 10/12/2012 Results Only [facility] Laboratory Services - [facility] ([facility]) [address] [place], [place] [phone] Mario Medel MD [address] [place], [place] [phone] Social History Tobacco Use Types Packs/Day Years Used Date Smoking Tobacco: Never Assessed Sex and Gender Information Value Date Recorded Sex Assigned at Not on file Gender Identity Not on file Sexual Orientation Not on file documented as of this encounter Plan of Treatment Not on file documented as of this encounter Procedures Procedure Name Priority Date/Time Associated Diagnosis Comments SURGICAL PATHOLOGY Routine 10/12/2012 0:00 EST documented in this encounter Results * SURGICAL PATHOLOGY (10/12/2012 0:00 EST) Pathology Report: SURGICAL PATHOLOGY REPORT Reports generated via electronic interface contain original data; however they are lacking the format of the original report. Caution should be taken when reading/interpreti ng unformatted reports. Name: ? JOSE BEE ? Accession #: ? [id number] ? : ? 1950 (Age: 61) ??M ? Collect Date: ? 10/12/2012 ? Location: ? [facility] ? Receive Date: ? 10/12/2012 ? Provider: MARIO MEDEL MD Copy to: JOVON SIFUENTES MD ? Final Pathologic Diagnosis: A. ?Colon, cecum, polyp, biopsy: ?1. ?? Sessile serrated adenoma. B. ?? Colon, splenic flexure, ? polyp, biopsy: ? 1. ?? Colonic mucosa with lymphoid aggregate. ??See comment. Comment: ? Deeper sections were reviewed for (B). ??(Dr. Strickland)/[facility] Document reviewed and electronically signed by: EVAN ANDINO MD Report ??Date: 10/14/2012 14:35 By the signature above, the attending physician certifies that he/she has personally conducted a gross and/or microscopic examination of the described specimens and rendered or confirmed the above diagnosis. Specimen(s) Received: A. ?Cecal polyp, favor SSA B. ? splenic flexure polyp Clinical History: ? H/O colon adenomas Gross Description: ? Received in formalin labelled Jose Bee and cecal polyp, favor SSA is a 1.1 x 0.9 x 0.2 cm pink-casas, sessile, polypoid tissue. ??The resection margin is inked black. ??The specimen is trisected and entirely submitted as (A). Received in formalin labelled Jose Bee and ? splenic flexure polyp is a single 0.3 x 0.2 x 0.1 cm pink-casas irregular soft tissue. ??Submitted in toto as (B). ??(Kyler Keita)/raghavendra End of Report DANNIE MATOS 10/12/2012 10/12/2012 16: 02 EST Mario Medel MD PATHOLOGY ORDERABLES [facility] [address] [place] [address] documented in this encounter Visit Diagnoses Not on filedocumented in this encounter Care Teams Automotive Shop Foreman Relationship Specialty Start Date End Date Jovon Sifuentes MD [address] [place] [address] PCP - General 09/05/09 documented as of this encounter
--- OUTSIDE RECORDS SUMMARY | 2024-05-18 11:35 | XMS_ITS | Encounter Summary ---
Author Organization [facility] Address [address] [place] [address] Care Team Providers Care Intermediate Accountant Name Role Phone Jovon Sifuentes MD Primary Care Provider [phone] Encounter Details Date Type Department Care Team (Late st Contact Info) Description 05/04/2023 Lab Requisition [facility] Pathology & Laboratory Medicine - [address] [phone] Outr Resulting Lab, Provider Social History Tobacco [...] Associated Diagnosis Comments PSA TOTAL, DIAGNOSTIC Routine 05/03/2023 14:15 EDT documented in this encounter Results * (ABNORMAL) PSA TOTAL, DIAGNOSTIC (05/03/2023 14:15 EDT) PSA 84.1(H) <=6.5 ng/mL 05/04/2023 19:05 EDT [facility] Blood VENOUS BLOOD / Unknown 05/03/2023 14:15 EDT 05/04/2023 17:19 EDT Narrative [facility] - 05/04/2023 19:05 EDT NOTE: Serum PSA concentration should not be interpreted as absolute evidence for the presence or absence of malignant disease. Assayed on Siemens ADVIA [employer] XPT using chemiluminescent technology.??Values obtained by using different assay methods cannot be used interchangeably. Provider Outr Resulting Lab CHEMISTRY & BLOOD GAS ORDERABLES [facility] [address] [place] [address] documented in this encounter Visit Diagnoses Not on filedocumented in this encounter Care Teams Intermediate Accountant Relationship Specialty Start Date End Date Jovon Sifuentes MD [address] [place] [address] PCP - General 09/05/09 documented as of this encounter
--- OUTSIDE RECORDS SUMMARY | 2024-05-18 11:35 | XMS_ITS | Encounter Summary ---
Author Organization [facility] [place] [address] Care Team Providers Care Program Control Analyst Name Role Phone Jovon Sifuentes MD Primary Care Provider Encounter Details Date Type Department Care Team (Latest Contact Info) Description 03/18/2017 - 03/18/2017 11:59 PM EDT Hospital Encounter [place] [address] Jovon Sifuentes MD [address] [place] [address] Pain Discharge Disposition: Home Social History Tobacco Use Types Packs/Day Years Used Date Smoking Tobacco: Never Assessed Sex and Gender Information Value Date Recorded Sex Assigned at Not on file Gender Identity Not on file Sexual Orientation Not on file documented as of this encounter Medications at Time of Discharge Medication Sig Dispensed Refills Start Date End Date CIALIS 10 mg Tablet 0 03/18/2017 07/29/20 17 esomeprazole (NEXIUM) 40 mg capsule 40 MG = 1 Capsule(s), PO, Once daily 04/13/2008 04/06/2017 documented as of this encounter Plan of Treatment Upcoming Encounters Date Type Department Care Team (Late st Contact Info) Description 08/01/2024 1:00 PM EDT Office Visit Hematology/Oncology at [address] [phone] Dmitry Bhatti MD [facility] HEMATOLOGY/[place] [address] Ellen Mcrae APRN [facility] [place] [address] 08/01/2024 1:30 PM EDT Infusion Hematology Oncology at [address] [phone] documented as of this encounter Procedures Procedure Name Priority Date/Time Associated Diagnosis Comments FILM LIBRARY STORAGE ONLY CT HEAD AND SPINE Routine 03/18/2017 12:00 AM EDT Pain documented in this encounter Results * Film Library- Storage Only CT Head And Spine (03/18/2017 12:00 AM EDT) Narrative [facility] - 03/18/2017 3:03 PM EDT This exam is for storage only and is auto-finalizing. Jovon Sifuentes MD G FILM LIBRARY ORD ERABLES [place], [place] documented in this encounter Visit Diagnoses Diagnosis Pain Generalized pain documented in this encounter Care Teams Program Control Analyst Relationship Specialty Start Date End Date Jovon Sifuentes MD [address] [place] [address] PCP - General 09/30/10 09/10/21 documented as of this encounter
--- OUTSIDE RECORDS SUMMARY | 2024-05-18 11:35 | XMS_ITS | Encounter Summary ---
Author Organization [facility] Address [address] [place] [address] Care Team Providers Care Hammer Mill Operator Name Role Phone Jovon Sifuentes MD Primary Care Provider [phone] Encounter Details Date Type Department Care Team (Late st Contact Info) Description 01/02/2008 Results Only [facility] - Maple conversion [address] [place] [address] Cecilia Talley MD [address] [place] [id number] Social History Tobacco Use Types Packs/Day Years Used Date Smoking Tobacco: Never Assessed Sex and Gender Information Value Date Recorded Sex Assigned at Not on file Gender Identity Not on file Sexual Orientation Not on file documented as of this encounter Plan of Treatment Not on file documented as of this encounter Procedures Procedure Name Priority Date/Time Associated Diagnosis Comments SURGICAL PATHOLOGY Routine 01/02/2008 0:00 EST documented in this encounter Results * SURGICAL PATHOLOGY (01/02/2008 0:00 EST) Pathology Report: SURGICAL PATHOLOGY REPORT Reports generated via electronic interface contain original data; however they are lacking the format of the original report. Caution should be taken when reading/interpreti ng unformatted reports. Name: ? JOSE BEE ? Accession #: ? [id number] ? : ? 1950 (Age: 57) ??M ? Collect Date: ? 01/02/2008 ? Location: ? [facility] ? Receive Date: ? 01/02/2008 ? Provider: CECILIA TALLEY MD Copy to: JOVON SIFUENTES MD ? Final Pathologic Diagnosis: ? Tonsil, lingual, biopsy: - Tonsillar tissue with reactive follicular hyperplasia. Document reviewed and electronically signed by: EVAN ANDINO MD Report ??Date: 01/03/2008 14:57 By the signature above, the attending physician certifies that he/she has personally conducted a gross and/or microscopic examination of the described specimens and rendered or confirmed the above diagnosis. Specimen(s) Received: ? Lingual tonsil Clinical History: ? Direct laryngoscope with bx; dysphagia and hypertrophy of lingual tonsils Gross Description: ? Received in formalin labelled Homer and lingual tonsil are multiple casas-pink tissue fragments measuring 1.5 x 1.2 x 0.3 cm in aggregate, which are partially surfaced by casas smooth mucosa. ??Entirely submitted in one cassette. (Sabina Thomas/raghavendra End of Report [facility] 01/02/2008 01/02/2008 16: 09 EST Cecilia Talley MD PATHOLOGY ORDERABLES Performing Organization Address City/State/[facility] Co de Phone Number [facility] [address] [place] [address] documented in this encounter Visit Diagnoses Not on filedocumented in this encounter Care Teams Hammer Mill Operator Relationship Specialty Start Date End Date Jovon Sifuentes MD [address] [place] [address] PCP - General 09/05/09 documented as of this encounter
--- OUTSIDE RECORDS SUMMARY | 2024-05-18 11:35 | XMS_ITS | Encounter Summary ---
Author Organization [facility] [place] [address] Care Team Providers Care Information Assoc Name Role Phone Jovon Sifuentes MD Primary Care Provider Encounter Details Date Type Department Care Team (Latest Contact Info) Description 03/26/2017 - 03/26/2017 11:59 PM EDT Hospital Encounter [place] [address] Zafar Madera MD [facility] [place] [address] Pain Discharge Disposition: Home Social History Tobacco [...] PM EDT Office Visit Hematology/Oncology at [address] [phone] Dmitry Bhatti MD [facility] DR HEMATOLOGY/[place] [address] Ellen Mcrae APRN [facility] [place] [address] 08/01/2024 1:30 PM EDT Infusion Hematology Oncology at [address] [phone] documented as of this encounter Procedures Procedure Name Priority Date/Time Associated Diagnosis Comments FILM LIBRARY STORAGE ONLY CT ABDOMEN AND PELVIS Routine 03/26/2017 12:00 AM EDT Pain documented in this encounter Results * Film Library- Storage Only CT Abdomen & Pelvis (03/26/2017 12:00 AM EDT) Narrative [facility] - 04/15/2017 11:54 AM EDT This exam is for storage only and is auto-finalizing. Zafar Madera MD IMG FILM LIBRARY OR DERABLES [place], [place] documented in this encounter Visit Diagnoses Diagnosis Pain Generalized pain documented in this encounter Care Teams Information Assoc Relationship Specialty Start Date End Date Jovon Sifuentes MD [address] [place] [address] PCP - General 09/30/10 09/10/21 documented as of this encounter
--- OUTSIDE RECORDS SUMMARY | 2024-05-18 11:35 | XMS_ITS | Encounter Summary ---
Author Organization [facility] Address [address] [place] [address] Care Team Providers Care Rib Stiffener And Heel Dipper Name Role Phone Jovon Sifuentes MD Primary Care Provider [phone] Encounter Details Date Type Department Care Team (Late st Contact Info) Description 10/16/2020 Lab Requisition [facility] Pathology & Laboratory Medicine - [address] [address] Outr Resulting Lab, Provider Social History Tobacco [...] ORDER STANDALONE - [facility]OAD COVID TEST Today 10/15/2020 13:00 EST COVID-19 TESTING Routine 10/15/2020 13:0 0 EST documented in this encounter Results * DO NOT ORDER STANDALONE - BROAD COVID TEST (10/15/2020 13:00 EST) COVID-19 rt-PCR Result NEGATIVE Negative 10/18/2020 13:18 EST [facility] Comment: 2019-novel Coronavirus [...] in accordance with CLIA regulations, [employer] of [place] Pathologists (CAP) guidelines (Jan 25, 2020), and FDA guidance (Jan 06, 2020). This test is only for use under the Food and Drug Administration's Emergency Use Authorization. Swab ENTIRE NASOPHARYNX / Unknown 10/15/2020 13:00 EST 10/16/2020 16:13 EST Provider Outr Resulting Lab MICROBIOLOGY - GENERAL ORDERABLES [facility] [place], [place] * COVID-19 TESTING (10/15/2020 13:00 EST) COVID-19 rt-PCR Result NEGATIVE Negative 10/18/2020 15:51 EST [facility] Comment: 2019-novel Coronavirus (2019-nCoV) not detected [...] in accordance with CLIA regulations, [employer] of [place] Pathologists (CAP) guidelines (Jan 25, 2020), and FDA guidance (Jan 06, 2020). This test is only for use under the Food and Drug Administration's Emergency Use Authorization. Performing Lab [facility] [place] 10/18/2020 15:51 EST [facility] Swab 10/15/2020 13:0 0 EST 10/16/2020 16:13 EST Provider Outr Resulting Lab MICROBIOLOGY - GENERAL ORDERABLES [facility] [address] [place] [address] [facility] [place], [place] documented in this encounter Visit Diagnoses Not on filedocumented in this encounter Care Teams Rib Stiffener And Heel Dipper Relationship Specialty Start Date End Date Jovon Sifuentes MD [address] [place] [address] PCP - General 09/05/09 documented as of this encounter
--- OUTSIDE RECORDS SUMMARY | 2024-05-18 11:35 | XMS_ITS | Encounter Summary ---
Author Organization [facility] Address [address] [place] [address] Care Team Providers Care Health Information Director Name Role Phone Jovon Sifuentes MD Primary Care Provider [phone] Encounter Details Date Type Department Care Team (Late st Contact Info) Description 05/18/2020 Lab Requisition [facility] Pathology & Laboratory Medicine - [address] [address] Outr Resulting Lab, Provider Social History Tobacco [...] ORDER STANDALONE - [facility]OAD COVID TEST Today 05/18/2020 11:03 EDT COVID-19 TESTING Routine 05/18/2020 11:0 3 EDT documented in this encounter Results * DO NOT ORDER STANDALONE - BROAD COVID TEST (05/18/2020 11:03 EDT) COVID-19 rt-PCR Result NEGATIVE Negative 05/20/2020 13:54 EDT [facility] Comment: 2019-novel Coronavirus (2019-nCoV) [...] in accordance with CLIA regulations, [employer] of [place] Pathologists (CAP) guidelines (Jan 25, 2020), and FDA guidance (Jan 06, 2020). This test is only for use under the Food and Drug Administration's Emergency Use Authorization. Swab ENTIRE NASOPHARYNX / Unknown 05/18/2020 11:03 EDT 05/18/2020 22:43 EDT Provider Outr Resulting Lab MICROBIOLOGY - GENERAL ORDERABLES [facility] [place], [place] * COVID-19 TESTING (05/18/2020 11:03 EDT) COVID-19 rt-PCR Result NEGATIVE Negative 05/20/2020 14:[address] [facility] Comment: 2019-novel Coronavirus (2019-nCoV) not detected [...] in accordance with CLIA regulations, College of [employer] [place] Pathologists (CAP) guidelines (Jan 25, 2020), and FDA guidance (Jan 06, 2020). This test is only for use under the Food and Drug Administration's Emergency Use Authorization. Performing Lab [facility] 05/20/2020 14:40 EDT [facility] Swab 05/18/2020 11:0 3 EDT 05/18/2020 22:43 EDT Provider Outr Resulting Lab MICROBIOLOGY - GENERAL ORDERABLES [facility] [address] [place] [address] [facility] [place], [place] documented in this encounter Visit Diagnoses Not on filedocumented in this encounter Additional Health Concerns Infection Onset Date Last Indicated Resolved Time R/O COVID-19 05/18/2020 05/18/2020 05/23/2020 22:1 6 EDT documented as of this encounter Care Teams Health Information Director Relationship Specialty Start Date End Date Jovon Sifuentes MD [address] [place] [address] PCP - General 09/05/09 documented as of this encounter
--- OUTSIDE RECORDS SUMMARY | 2024-05-18 11:35 | XMS_ITS | Encounter Summary ---
Author Organization [facility] Address [address] [place] [address] Care Team Providers Care Vehicle Window Tinter Name Role Phone Jovon Sifuentes MD Primary Care Provider [phone] Encounter Details Date Type Department Care Team (Late st Contact Info) Description 05/14/[address] [facility] Pathology & Laboratory Medicine - [address] [address] Dinesh Phelps MD [address] [place] [address] [place] [address] Encounter for other general examination Social History Tobacco Use Types Packs/Day Years Used Date Smoking Tobacco: Never Assessed Sex and Gender Information Value Date Recorded Sex Assigned at Not on file Gender Identity Not on file Sexual Orientation Not on file documented as of this encounter Plan of Treatment Not on file documented as of this encounter Procedures Procedure Name Priority Date/Time Associated Diagnosis Comments SURGICAL PATHOLOGY Today 05/13/2023 13 :20 EDT Encounter for other general examination documented in this encounter Results * SURGICAL PATHOLOGY (05/13/2023 13:20 EDT) Note to Patient The following pathology results have been interpreted by your pathologist and may be available to you before your health provider has had the opportunity to review them. Please allow time for your provider to receive these results and explore management options, if applicable. 05/18/2023 11:25 EDT [facility] Final Diagnosis A. PROSTATE, RIGHT BASE LATERAL, [...] adenocarcinoma, involving 1 of 1 core. - Flint score 4 + 5 = 9 (grade group 5), tumor extent 9 mm (80% of core). E. PROSTATE, RIGHT APEX LATERAL, NEEDLE CORE BIOPSY: - Prostatic adenocarcinoma, involving 1 of 1 core. - Flint score 5 + 4 = 9 (grade [...] adenocarcinoma, involving 1 of 1 core. - Flint score 4 + 3 = 7 (grade group 3), 70% Flint pattern 4, tumor extent 6 mm (40% [...] adenocarcinoma, involving 1 of 1 core. - Flint score 4 + 5 = 9 (grade group 5), tumor extent 2 mm (15% of core). K. PROSTATE, LEFT APEX LATERAL, NEEDLE CORE BIOPSY: - Benign prostatic tissue. L. PROSTATE, LEFT APEX MEDIAL, NEEDLE CORE BIOPSY: - Prostatic adenocarcinoma, involving 1 of 1 core. - Marko score 5 + 4 = 9 (grade group 5), tumor extent 2 mm (20% of core). 05/18/2023 11:25 [facility] Diagnosis Comment 05/18/2023 11:25 [facility] Attestation There was significant resident/fellow involvement in the diagnostic evaluation of this case. By the signature below, the attending physician certifies that they have personally conducted a gross and/or microscopic examination of the described specimens and rendered or confirmed the above diagnosis. 05/18/2023 11:25 [facility] at [address] Clinical History Not listed 05/18/2023 11:25 [facility] Gross Description A. Received in formalin labelled with proper patient identification (initials W, S) and 1. RT base Lat is a single casas-white tissue core (1.1 cm in length x less than 0.1 cm in diameter). Submitted intact in A1. B. Received in formalin labelled with proper patient identification (initials W, S) and 2. RT base med is a single casas-white tissue core (1.0 cm in length x less than 0.1 cm in diameter). Submitted intact in B1. C. Received in formalin labelled with proper patient identification (initials W, S) and 3. RT mid Lat is a single casas-white tissue core (1.4 cm in length x 0.1 cm in diameter). Submitted intact in C1. D. Received in formalin labelled with proper patient identification (initials W, S) and 4. RT mid med is a single casas-white tissue core (1.7 cm in length x 0.1 cm in diameter). Submitted intact in D1. E. Received in formalin labelled with proper patient identification (initials W, S) and 5. RT apex Lat is a single casas-white tissue core (2.0 cm in length x 0.1 cm in diameter). Submitted intact in E1. F. Received in formalin labelled with proper patient identification (initials W, S) and 6. RT apex med is a single casas-white tissue core (2.1 cm in length x 0.1 cm in diameter). Submitted intact in F1. G. Received in formalin labelled with proper patient identification (initials W, S) and 7. LT base Lat is a single casas-white tissue core (1.3 cm in length x less than 0.1 cm in diameter). Submitted intact in G1. H. Received in formalin labelled with proper patient identification (initials W, S) and 8. LT base med is a single casas-white tissue core (1.6 cm in length x 0.1 cm in diameter). Submitted intact in H1. I. Received in formalin labelled with proper patient identification (initials W, S) and 9. LT mid Lat is a single casas-white tissue core (1.5 cm in length x less than 0.1 cm in diameter). Submitted intact in I1. J. Received in formalin labelled with proper patient identification (initials W, S) and 10. LT mid med is a single casas-white tissue core (1.7 cm in length x 0.1 cm in diameter). Submitted intact in J1. K. Received in formalin labelled with proper patient identification (initials W, S) and 11. LT apex Lat is a single casas-white tissue core (1.0 cm in length x less than 0.1 cm in diameter). Submitted intact in K1. L. Received in formalin labelled with proper patient identification (initials W, S) and 12. LT apex med is a single casas-white tissue core (1.5 cm in length x 0.1 cm in diameter). Submitted intact in L1. Arely Albright 05/14/2023 9:33 05/18/2023 11:25 EDT [facility] Resident/Yan w: Katherine Murillo MD 05/18/2023 11:25 EDT [facility] Performing Lab [facility] 05/18/2023 11:25 EDT [facility] Scanned Images 05/18/2023 11:25 T [facility] Tissue ENTIRE APEX OF PROSTATE / Unknown 05/13/2023 13:20 EDT 05/14/2023 8:38 EDT Tissue specimen (specimen) BASE OF PROSTATE / Unknown 05/13/2023 13:20 EDT 05/14/2023 8:49 EDT Tissue specimen (specimen) RIGHT LATERAL MIDDLE PERIPHERAL ZONE OF PROSTATE / Unknown 05/13/2023 13:20 EDT 05/14/2023 8:49 EDT Tissue specimen (specimen) MIDDLE REGION OF PROSTATE / Unknown 05/13/2023 13:20 EDT 05/14/2023 8:49 EDT Tissue specimen (specimen) STRUCTURE OF APEX OF PROSTATE / Unknown 05/13/2023 13:20 EDT 05/14/2023 8:49 EDT Tissue specimen (specimen) STRUCTURE OF APEX OF PROSTATE / Unknown 05/13/2023 13:20 EDT 05/14/2023 8:49 EDT Tissue specimen (specimen) BASE OF PROSTATE / Unknown 05/13/2023 13:20 EDT 05/14/2023 8:49 EDT Tissue specimen (specimen) BASE OF PROSTATE / Unknown 05/13/2023 13:20 EDT 05/14/2023 8:49 EDT Tissue specimen (specimen) LEFT LATERAL MIDDLE PERIPHERAL ZONE OF PROSTATE / Unknown 05/13/2023 13:20 EDT 05/14/2023 8:49 EDT Tissue specimen (specimen) MIDDLE REGION OF PROSTATE / Unknown 05/13/2023 13:20 EDT 05/14/2023 8:49 EDT Tissue specimen (specimen) ENTIRE LEFT LATERAL LOBE OF PROSTATE / Unknown 05/13/2023 13:20 EDT 05/14/2023 8:49 EDT Tissue specimen (specimen) STRUCTURE OF APEX OF PROSTATE / Unknown 05/13/2023 13:20 EDT 05/14/2023 8:49 EDT Dinesh Phelps MD PATHOLOGY ORDERAB LES [facility] [address] [place] [address] documented in this encounter Visit Diagnoses Diagnosis Encounter for other general examination documented in this encounter Care Teams Vehicle Window Tinter Relationship Specialty Start Date End Date Jovon Sifuentes MD [address] [place] [address] PCP - General 09/05/09 documented as of this encounter
--- OUTSIDE RECORDS SUMMARY | 2024-05-18 11:35 | XMS_ITS | Encounter Summary ---
Author Organization [facility] Address [address] [place] [address] Care Team Providers Care Senior Wind Turbine Technician Name Role Phone Jovon Sifuentes MD Primary Care Provider [phone] Encounter Details Date Type Department Care Team (Late st Contact Info) Description 07/21/2006 Results Only [facility] - Maple conversion [address] [place] [address] Mario Medel MD [address] [place] [address] Social History Tobacco Use Types Packs/Day Years Used Date Smoking Tobacco: Never Assessed Sex and Gender Information Value Date Recorded Sex Assigned at Not on file Gender Identity Not on file Sexual Orientation Not on file documented as of this encounter Plan of Treatment Not on file documented as of this encounter Procedures Procedure Name Priority Date/Time Associated Diagnosis Comments SURGICAL PATHOLOGY Routine 07/21/2006 0:00 EDT documented in this encounter Results * SURGICAL PATHOLOGY (07/21/2006 0:00 EDT) Pathology Report: SURGICAL PATHOLOGY REPORT Reports generated via electronic interface contain original data; however they are lacking the format of the original report. Caution should be taken when reading/interpreti ng unformatted reports. Name: ? JOSE BEE ? Accession #: ? [id number] ? : ? 1950 (Age: 55) ??M ? Collect Date: ? 07/21/2006 ? Location: ? [facility] ? Receive Date: ? 07/22/2006 ? Provider: MARIO MEDEL MD Copy to: JOVON SIFUENTES MD ? Final Pathologic Diagnosis: A. ?Colon, ascending, polyp, biopsy: 1. ?Vegetable matter, no colonic tissue identified. B. ?Colon, transverse, polyp, biopsy: 1. ?Fragments of tubular adenoma. 2. ?No high grade dysplasia seen. C. ?Colon, rectosigmoid, polyp, biopsy: 1. ?Hyperplastic polyps. Document reviewed and electronically signed by: Gavin Reynolds MD Report ??Date: 07/24/2006 09:17 By the signature above, the attending physician certifies that he/she has personally conducted a gross and/or microscopic examination of the described specimens and rendered or confirmed the above diagnosis. Specimen(s) Received: A. ?Ascending colon polyp B. ?Bx transverse colon polyp C. ?Rectosigmoid polyp Clinical History: ? Not listed Gross Description: ? Received in Hollande's fixative labelled [place] and ascending colon polyp is a 0.2 x 0.2 x 0.2 cm brown firm material consistent with vegetative matter. ??The specimen is submitted intact as (A). Received in Hollande's fixative labelled [place] and transverse colon polyp are two casas-pink polypoid portions of soft tissue averaging 0.2 x 0.2 x 0.1 cm, submitted in toto as (B). Received in [facility]'s fixative labelled [place] and rectosigmoid polyp are two casas-pink polypoid portions of soft tissue averaging 0.2 x 0.2 x 0.1 cm, submitted in toto as (C). ??([facility])/[facility] End of Report [facility] 07/21/2006 07/22/2006 10: 30 EDT Mario Medel MD PATHOLOGY ORDERABLES [facility] [address] [place] [address] documented in this encounter Visit Diagnoses Not on filedocumented in this encounter Care Teams Senior Wind Turbine Technician Relationship Specialty Start Date End Date Jovon Sifuentes MD [address] [place] [address] PCP - General 09/05/09 documented as of this encounter
--- OUTSIDE RECORDS SUMMARY | 2024-05-18 11:35 | XMS_ITS | Clinical Summary ---
Author Organization [facility] Address [address] [place] [address] Care Team Providers Care Metal Drilling Machine Operator Name Role Phone Jovon Sifuentes MD Primary Care Provider [phone] Social History Tobacco Use Types Packs/Day Years Used Date Smoking Tobacco: Never Assessed Sex and Gender Information Value Date Recorded Sex Assigned at Not on file Gender Identity Not on file Sexual Orientation Not on file Plan of Treatment Health Maintenance Due Date Last Done Comments Hepatitis C Screen 1950 RSV Immunization ( o r 60+ Years) (1 - 1-dose 60+ series) 2009 Fall Risk Screening 2014 COVID-19 Vaccine ( season) 2023 Care Teams Metal Drilling Machine Operator Relationship Specialty Start Date End Date Jovon Sifuentes MD [address] [place] [address] [facility] - General 09/05/09
--- OUTSIDE RECORDS SUMMARY | 2024-05-18 11:35 | XMS_ITS | Encounter Summary ---
Author Organization [facility] [place] [address] Care Team Providers Care Agricultural Produce Sorter Name Role Phone Jovon Sifuentes MD Primary Care Provider [phone] Encounter Details Date Type Department Care Team (Latest Contact Info) Description 03/29/2017 - 03/29/2017 11:59 PM EDT Hospital Encounter [place] [address] Zafar Madera MD [facility] [place] [address] Pain Discharge Disposition: Home Social History Tobacco [...] PM EDT Office Visit Hematology/Oncology at [address] [phone] Dmitry Bhatti MD [facility] DR HEMATOLOGY/[place] [address] Ellen Mcrae APRN [facility] [place] [address] 08/01/2024 1:30 PM EDT Infusion Hematology Oncology at [address] [phone] documented as of this encounter Procedures Procedure Name Priority Date/Time Associated Diagnosis Comments FILM LIBRARY STORAGE ONLY CT CHEST Routine 03/29/2017 12:00 AM EDT Pain documented in this encounter Results * Film Library- Storage Only CT Chest (03/29/2017 12:00 AM EDT) Narrative [facility] - 04/15/2017 11:52 AM EDT This exam is for storage only and is auto-finalizing. Zafar Madera MD IMG FILM LIBRARY OR DERABLES [place], [place] documented in this encounter Visit Diagnoses Diagnosis Pain Generalized pain documented in this encounter Care Teams Agricultural Produce Sorter Relationship Specialty Start Date End Date Jovon Sifuentes MD [address] [place] [address] PCP - General 09/30/10 09/10/21 documented as of this encounter
--- OUTSIDE RECORDS SUMMARY | 2024-05-18 11:35 | XMS_ITS | Referral Summary ---
Author Organization [facility] Address [address] [place] [address] Care Team Providers Care Leather Tanner Name Role Phone Jovon Sifuentes MD Primary Care Provider [phone] Social History Tobacco Use Types Packs/Day Years Used Date Smoking Tobacco: Never Assessed Sex and Gender Information Value Date Recorded Sex Assigned at Not on file Gender Identity Not on file Sexual Orientation Not on file Plan of Treatment Not on file Care Teams Leather Tanner Relationship Specialty Start Date End Date Jovon Sifuentes MD [address] [place] [address] PCP - General 09/05/09
--- OUTSIDE RECORDS SUMMARY | 2024-05-18 11:35 | XMS_ITS | Encounter Summary ---
Author Organization [facility] [place] [address] Care Team Providers Care Talent Acquisition Operations Manager Name Role Phone Jovon Sifuentes MD Primary Care Provider [phone] Encounter Details Date Type Department Care Team (Late Contact Info) Description 02/03/2011 3:30 PM EDT Office Visit Dermatology [address] [place] [address] Alex Diaz MD [address] [facility] [place] [address] Social History Tobacco Use Types Packs/Day Years Used Date Smoking Tobacco: Never Assessed Sex and Gender Information Value Date Recorded Sex Assigned at Not on file Gender Identity Not on file Sexual Orientation Not on file documented as of this encounter Plan of Treatment Upcoming Encounters Date Type Department Care Team (Late Contact Info) Description 08/01/2024 1:00 PM EDT Office Visit Hematology/Oncology at [address] [phone] Dmitry Bhatti MD [facility] HEMATOLOGY/[place] [address] Ellen Mcrae APRN [facility] [place] [address] 08/01/2024 1:30 PM EDT Infusion Hematology Oncology at [address] [phone] documented as of this encounter Visit Diagnoses Not on filedocumented in this encounter Care Teams Talent Acquisition Operations Manager Relationship Specialty Start Date End Date Jovon Sifuentes MD [address] [place] [address] PCP - General 09/30/10 09/10/21 documented as of this encounter
[2024-05-18 15:05] LABS: TSH (W/Ref FT4) 5.61 uIU/mL (0.36-3.74)
[2024-05-18 15:30] LABS: FREE T4 0.87 ng/dL (0.76-1.46)
== END 2024-05-18 11:12 | disposition home or self-care (01) ==
LOC: NCHCN 11:11
PROVIDERS: PCP Family Medicine; Visit Provider Family Medicine
DX: E02 Subclinical iodine-deficiency hypothyroidism (principal)
CPT/HCPCS: 84439; 84443

== ENCOUNTER 2024-07-25 02:02 | Outpatient (CLI) | payer MEDICARE, BC, SELFPAY ==
[2024-07-25 08:11] LABS: Abs Immature Grans 0.02 10^3/uL (0.0-0.06); Absolute Basophil Count 0.07 10^3/uL (0.0-0.2); Absolute Eosinophil Count 0.16 10^3/uL (0.0-0.7); Absolute Lymphocyte Count 1.82 10^3/uL (1.2-3.4); Absolute Monocyte Count 0.39 10^3/uL (0.1-0.8); Absolute Neutrophil Count 2.82 10^3/uL (1.2-6.7); Basophils % 1.3 %; HCT 44.7 % (40.0-50.0); HGB 14.8 g/dL (13.5-17.5); Immature Grans % 0.4 %; Lymphocytes % 34.5 %; MCH 31.6 pg (27.0-33.0); MCHC 33.1 % (32.0-36.0); MCV 96 fL (80-95); MPV 9.7 fL (8.0-11.0); Monocytes % 7.4 %; Neutrophils % 53.4 %; Platelet Count 162 10^3/uL (130-400); RBC 4.68 10^6/uL (4.36-5.78); RDW 13.6 % (11.8-14.1); RDW-SD 47.7 fL; WBC 5.28 10^3/uL (4.4-10.8)
[2024-07-25 08:42] LABS: ALT 26 U/L (16-63); AST 20 U/L (15-37); Albumin 3.7 g/dL (3.4-5.0); Alkaline Phosphatase 143 U/L (46-116); Anion Gap 10.3 mmol/L (3-11); BUN 24 mg/dL (7-18); Bilirubin, Total 0.51 mg/dL (0.2-1.0); CO2 26.7 mmol/L (21.0-32.0); CREATININE 1.3 mg/dL (0.70-1.30); Calcium 9.4 mg/dL (8.5-10.1); Chloride 106 mmol/L (98-107); Estimated GFR 57.65 (mL/min/1.73m2); Glucose 127 mg/dL (74-106); Potassium 4.2 mmol/L (3.5-5.1); Sodium 143 mmol/L (136-145); Total Protein 7.2 g/dL (6.4-8.2)
[2024-07-27 12:30] LABS: PSA, Ultrasensitive 0.04 ng/mL (<= 6.5)
[2024-07-29 15:27] LABS: Testosterone, Total <7.0 ng/dL (240-950)
== END 2024-07-25 02:03 | disposition home or self-care (01) ==
PROVIDERS: PCP Family Medicine; Visit Provider Internal Medicine
DX: C61 Malignant neoplasm of prostate (principal)
CPT/HCPCS: 36415; 80053; 84153; 84403; 85025

== ENCOUNTER 2024-08-28 12:14 | Emergency (ER) | payer MEDICARE, BC, SELFPAY ==
[2024-08-28 12:19] VITALS: BP 118/78; PULSE 70; RESP 16; TEMP 36.7; O2SAT 96
--- OUTSIDE RECORDS SUMMARY | 2024-08-28 12:48 | XMS_ITS | Clinical Summary ---
Author Organization [facility] Address [address] [facility] [place] [address] Care Team Providers Care Farm Facility Manager Name Role Phone Paulino Finley MD Primary Care Provider [phone] Allergies Active Allergy Reactions Criticality Noted Date [...] Encounters Date Type Department Care Team Description 08/17/2024 Notes [place] [address] Casi Dong 08/07/2024 [place] [address] Casi Dong 08/01/2024 1:30 PM EDT Infusion Hematology Oncology at [address] [phone] Prostate cancer metastatic to multiple sites 08/01/2024 1:00 PM EDT Office Visit Hematology/Oncology at [address] [address] Dmitry Bhatti MD Burns, Kimberly A, GILLIAN Prostate cancer metastatic to multiple sites; Androgen deprivation therapy; Fatigue, unspecified type; Hot flashes 07/31/2024 Travel 07/21/2024 Orders Only [place] [address] Patricia Partida 07/17/2024 [place] [address] Casi Dong 07/11/2024 [place] [address] Casi Dong 06/22/2024 [place] [address] Casi Dong from Last 3 Months Family History Medical [...] Sign Reading Time Taken Comments Blood Pressure 110/55 08/01/2024 1:04 PM EDT Pulse 58 08/01/2024 1:04 PM EDT Temperature 36.1 ??C (96.9 ??F) 08/01/2024 1:04 PM ED T Respiratory Rate 16 08/01/2024 1:04 PM EDT Oxygen Saturation 99% 08/01/2024 1:04 PM EDT Inhaled Oxygen Concentration - - Weight 140.8 kg (310 lb 6.4 oz) 08/01/2024 1:04 PM EDT Height 186.6 cm (6' 1.47) 08/01/2024 1:04 PM ED T Body Mass Index 40.44 08/01/2024 1:04 PM EDT Plan of Treatment Upcoming Encounters Date Type Department Care Team (Late st Contact Info) Description 09/18/2024 10:20 AM EST Office [place] [address] Sriram Contreras MD [facility] [place] [address] 10/31/2024 1:30 PM EST Office Visit Hematology/Oncology at [address] [phone] Dmitry Bhatti MD [facility] [place] [address] Ellen Mcrae APRN [facility] [place] [address] 10/31/2024 2:00 PM EST Infusion Hematology Oncology at [address] [phone] Health Maintenance Due Date Last Done Comments CT Colonography 1950 Colonoscopy 1950 Colorectal Cancer Screening 1950 FIT DNA 1949 FIT 1949 Sigmoidoscopy (10 year) with FIT yearly 1950 Sigmoidoscopy 1949 Hepatitis C Screening 1967 Lipid Screening 1967 Tetanus/Diphtheria/Pertussis Vaccines (1 - Tdap) 1968 Zoster vaccine (1 of 2) 1999 Advance Directive 2004 AAA Screen 2014 Pneumoccocal Vaccine: 65+ (1 of 1 - PCV) 2014 Covid-19 Vaccine ( - 2022-2 4 season) 2024 Influenza (Flu) vaccine (1 o f 1 - Influenza standard series) 07/09/2024 Diabetes Screening (HgbA1C o r Glucose) Discontinued 07/08/2023, 07/29/2017, 07/28/2017, Additional history exists Procedures Procedure Name Priority Date/Time Associated Diagnosis Comments LAB SCAN 07/25/2024 12:00 AM EDT LAB SCAN 07/25/2024 12:00 AM EDT COMPREHENSIVE METABOLIC PANEL Routine 07/08/2023 2:07 PM EDT Malignant neoplasm of prostate metastatic to bone from Last 3 Months or Most Recently Relevant to Health Maintenance Results * Scan Doc: Lab (07/25/2024 12:00 AM EDT) Only the most recent of2 resultswithin the time period is included. Narrative 07/25/2024 12:00 AM EDT Ordered by an unspecified provider. Scanning Provider MEDIA MGR SCAN EXT O RDR/RSLT * (ABNORMAL) Comprehensive metabolic panel (non-fasting) (07/08/2023 2:07 PM EDT) Glucose 73 65 - 199 mg/dL [facility] Comment:Diabetes: >=200 mg/d L plus symptoms Blood Urea Nitrogen 16 10 - 20 mg/dL [facility] Creatinine 1.12 0.80 - 1.50 mg/dL [facility] Sodium 143 135 - 145 mmol/L [facility] Potassium 4.4 3.5 - 5.0 mmol/L [facility] Comment: Please note: ??Patients with WBC >100,000 may have falsely elevated Potassium levels. ??For accurate Potassium quantification in these patients send serum separator tube (gold top) for subsequent determinations. ??Contact the Clinical Chemistry Laboratory if there are any questions. Chloride 109(H) 98 - 107 mmol/L [facility] Carbon Dioxide 24 22 - 31 mmol/L [facility] Anion Gap 10 5 - 15 mmol/L [facility] Calcium 9.4 8.5 - 10.5 mg/dL [facility] Protein, Total 7.2 6.1 - 8.0 g/dL [facility] Albumin 4.2 3.2 - 5.2 g/dL [facility] Aspartate Aminotransferase 17 0 - 39 unit/L [facility] Alanine Aminotransferase 17 0 - 55 unit/L [facility] Alkaline Phosphatase 407(H) 40 - 130 unit/L [facility] Bilirubin, Total 0.2 0.2 - 1.3 mg/dL [facility] Est Glomerular Filtration Rate 69 >=60 mL/min/1. 73 m?? [facility] Comment: This patient's estimated GFR was [...] In Lab Dmitry Bhatti MD CHEMISTRY ORDERABLES [facility] [place] [address] from Last 3 Months or Most Recently Relevant to Health Maintenance Advance Directives Documents on File Type Date Recorded Patient Facilities Engineer Aneta kwon Personal Facilities Engineer 12/26/2018 9:00 AM lino bee - * [...] is based on Patient wishes. Care Teams Farm Facility Manager Relationship Specialty Start Date End Date Paulino Finley MD [address] [place] [address] PCP - General Emergency Medicine 09/11/21
--- OUTSIDE RECORDS SUMMARY | 2024-08-28 12:48 | XMS_ITS | Encounter Summary ---
Author Organization [facility] [place] [address] Care Team Providers Care Registered Route Associate Name Role Phone Paulino Finley MD Primary Care Provider [phone] Encounter Details Date Type Department Care Team (Late st Contact Info) Description 02/01/2024 9:30 AM EDT Office Visit Hematology/Oncology at [address] [phone] Dmitry Bhatti MD [facility] DR HEMATOLOGY [place] [address] Ellen Mcrae APRN [facility] [place] [address] Malignant neoplasm of prostate metastatic to bone; [...] this encounter Progress Notes * Ellen Mcrae, TRUCK DESPATCHER - 02/01/2024 9:30 AM EDT Images from [...] melgar was lanced with Ophthalmology. Follows with mail examiner Dr. Bah. He completed a course of [...] here with his today. They live in [place]. Medications: Your Medications Accurate as of February [...] adenocarcinoma, involving 1 of 1 core. - [place] score 5 + 4 = 9 (grade group 5), tumor extent 10 mm (80% of core). D. PROSTATE, RIGHT MID MEDIAL, NEEDLE CORE BIOPSY: - Prostatic adenocarcinoma, involving 1 of 1 core. - [place] score 4 + 5 = 9 (grade group 5), tumor extent 9 mm (80% of core). E. PROSTATE, RIGHT APEX LATERAL, NEEDLE CORE BIOPSY: - Prostatic adenocarcinoma, involving 1 of 1 core. - [place] score 5 + 4 = 9 (grade [...] adenocarcinoma, involving 1 of 1 core. - [place] score 3 + 5 = 8 (grade [...] Food and Drug Administration approved darolutamide (Nubeqa, [employer] tablets in combination with docetaxel for adult patients with metastatic hormone-sensitive prostate cancer (mHSPC). Efficacy was based on ARASENS ([id number]), a randomized, multicenter, double- blind, placebo-controlled clinical trial in 1306 patients with mHSPC. Patients were randomized to receive either darolutamide 600 mg orally twice daily plus docetaxel 75 mg/m2 intravenously administered every 3 weeks forup to 6 cycles or docetaxel plus placebo. All patients received a gonadotropin-releasing hormone analog concurrently or had a bilateral orchiectomy. The primary efficacy measure was overall survival (OS). Imsq-xy-mglj progression was an additional efficacy measure. Median OS was not reached (NR) (95% CI: NR, NR) in the darolutamide plus docetaxelarm and 48.9 months (95% CI: 44.4, NR) in docetaxel plus placebo arm (HR 0.68; 95% CI: 0.57, 0.80; p<0.0001). Treatment with darolutamide and docetaxel resulted in a statistically significant delay in knpp-cx-zdwt progression (HR 0.79; 95% CI: 0.66, 0.95; [...] common adverse reactions experienced by patients (incidence >=10% with a >=2% increase over placebo with docetaxel) were constipation, decreased appetite, rash, hemorrhage, increased weight, and hypertension. The most common laboratory test abnormalities (>=30%) were anemia, hyperglycemia, decreased lymphocyte count, decreased [...] 10:20 AM EST Office [place] [address] Sriram Contreras MD [facility] [place] [address] 10/31/2024 1:30 PM EST Office Visit Hematology/Oncology at [address] [phone] Dmitry Bhatti MD [facility] DR HEMATOLOGY [place] [address] Ellen Mcrae APRN [facility] [place] [address] 10/31/2024 2:00 PM EST Infusion Hematology Oncology at [address] [phone] documented as of this encounter Visit Diagnoses Diagnosis Malignant neoplasm of prostate metastatic to bone Malignant neoplasm of prostate Androgen deprivation therapy Encounter for therapeutic drug monitoring Fatigue, unspecified type documented in this encounter Care Teams Registered Route Associate Relationship Specialty Start Date End Date Paulino Finley MD [address] [place] [address] PCP - General Emergency Medicine 09/11/21 documented as of this encounter
--- OUTSIDE RECORDS SUMMARY | 2024-08-28 12:48 | XMS_ITS | Encounter Summary ---
Author Organization [facility] [place] [address] Care Team Providers Care Elevator Constructor Name Role Phone Paulino Finley MD Primary Care Provider [phone] Encounter Details Date Type Department Care Team [...] 10:20 AM EST Office Visit [place] [address] Sriram Contreras MD [facility] [place] [address] 10/31/2024 1:30 PM EST Office Visit Hematology/Oncology at [address] [address] Dmitry Bhatti MD [facility] DR HEMATOLOGY [place] [address] Ellen Mcrae APRN [facility] [place] [address] 10/31/2024 2:00 PM EST Infusion Hematology Oncology at [address] [phone] documented as of this encounter Visit Diagnoses Not on filedocumented in this encounter Care Teams Elevator Constructor Relationship Specialty Start Date End Date Paulino Finley MD [address] [place] [address] PCP - General Emergency Medicine 09/11/21 documented as of this encounter
--- OUTSIDE RECORDS SUMMARY | 2024-08-28 12:48 | XMS_ITS | Encounter Summary ---
Author Organization [facility] [place] [address] Care Team Providers Care Respiratory Practitioner Name Role Phone Paulino Finley MD Primary Care Provider [phone] Encounter Details Date Type Department Care Team [...] 10:20 AM EST Office [place] [address] Sriram Contreras MD [facility] [place] [address] 10/31/2024 1:30 PM EST Office Visit Hematology/Oncology at [address] [address] Dmitry Bhatti MD [facility] DR [place] [address] Ellen Mcrae APRN [facility] [place] [address] 10/31/2024 2:00 PM EST Infusion Hematology Oncology at [address] [phone] documented as of this encounter Visit Diagnoses Not on filedocumented in this encounter Care Teams Respiratory Practitioner Relationship Specialty Start Date End Date Paulino Finley MD [address] [place] [address] PCP - General Emergency Medicine 09/11/21 documented as of this encounter
--- OUTSIDE RECORDS SUMMARY | 2024-08-28 12:48 | XMS_ITS | Encounter Summary ---
Author Organization [facility] [place] [place] [address] Care Team Providers Care Ssis Architect Name Role Phone Paulino Finley MD Primary Care Provider [phone] Encounter Details Date Type Department Care Team (Late Contact Info) Description 01/28/2024 Telephone Hematology/Oncology at [address] [phone] Halima Cesar Social History Tobacco Use Types [...] He is getting labs morning off at [facility] documented in this encounter Plan of Treatment Upcoming Encounters Date Type Department Care Team (Late Contact Info) Description 09/18/2024 10:20 AM EST Office [place] [address] Sriram Contreras MD [facility] [place] [address] 10/31/2024 1:30 PM EST Office Visit Hematology/Oncology at [address] [phone] Dmitry Bhatti MD [facility] DR HEMATOLOGY [place] [address] Ellen Mcrae APRN [facility] [place] [address] 10/31/2024 2:00 PM EST Infusion Hematology Oncology at [address] [phone] documented as of this encounter Visit Diagnoses Not on filedocumented in this encounter Care Teams Ssis Architect Relationship Specialty Start Date End Date Paulino Finley MD [address] [place] [address] PCP - General Emergency Medicine 09/11/21 documented as of this encounter
--- OUTSIDE RECORDS SUMMARY | 2024-08-28 12:48 | XMS_ITS | Encounter Summary ---
Author Organization [facility] [place] [address] Care Team Providers Care Parts Casting Machine Operator Name Role Phone Paulino Finley MD Primary Care Provider [phone] Encounter Details Date Type Department Care Team (Late st Contact Info) Description 01/05/2024 Orders Only Hematology and Oncology at [place] [phone] Braeden Brown [address] [facility] Dr Hematology/[place] [address] Prostate cancer metastatic to multiple sites Social [...] 10:20 AM EST Office Visit [place] [phone] Sriram Contreras MD [facility] [place] [address] 10/31/2024 1:30 PM EST Office Visit Hematology/Oncology at [address] [phone] Dmitry Bhatti MD [facility] DR [place]OLOGY [place] [address] Ellen Mcrae APRN [facility] [place] [address] 10/31/2024 2:00 PM EST Infusion Hematology Oncology at [address] [phone] documented as of this encounter Results * Research Venipuncture (01/10/2024 1:22 PM EST) Research Venipuncture Drawn [facility] Blood 01/10/2024 1:22 PM EST 01/10/2024 1:34 PM EST Narrative Resulting Agency Comment Spec In Lab Mey Tamez MD CHEMISTRY ORDERABLES [facility] [place] [address] documented in this encounter Visit Diagnoses Diagnosis Prostate cancer metastatic to multiple sites Malignant neoplasm of prostate documented in this encounter Care Teams Parts Casting Machine Operator Relationship Specialty Start Date End Date Paulino Finley MD [address] [place] [address] PCP - General Emergency Medicine 09/11/21 documented as of this encounter
--- OUTSIDE RECORDS SUMMARY | 2024-08-28 12:48 | XMS_ITS | Encounter Summary ---
Author Organization [facility] [place] [address] Care Team Providers Care Fitter Welder Name Role Phone Paulino Finley MD Primary Care Provider [phone] Encounter Details Date Type Department Care Team (Late st Contact Info) Description 07/17/2024 [place] [address] Casi Dnog Social History Tobacco Use Types Packs/Day Years [...] encounter Progress Notes * Casi Dong - 07/17/2024 11:43 AM EDT The patient has been approved to receive his Nubeqa at no cost through 11/07/2024. I will send renewal paperwork to the patient for 2024 in the coming months. documented in this encounter Plan of Treatment Upcoming Encounters Date Type Department Care Team (Late st Contact Info) Description 09/18/2024 10:20 AM EST Office [place] [address] Sriram Contreras MD [facility] [place] [address] 10/31/2024 1:30 PM EST Office Visit Hematology/Oncology at [address] [phone] Dmitry Bhatti MD [facility] [place] [address] Ellen Mcrae APRN [facility] [place] [address] 10/31/2024 2:00 PM EST Infusion Hematology Oncology at [address] [phone] documented as of this encounter Visit Diagnoses Not on filedocumented in this encounter Care Teams Fitter Welder Relationship Specialty Start Date End Date Paulino Finley MD [address] [place] [address] PCP - General Emergency Medicine 09/11/21 documented as of this encounter
--- OUTSIDE RECORDS SUMMARY | 2024-08-28 12:48 | XMS_ITS | Encounter Summary ---
[place] [address] Care Team Providers Care Packager Head Name Role Phone Paulino Finley MD Primary Care Provider [phone] Reason for Visit * Reason Comments Specialty Pharmacy Review Nubeqa 300mg t ablet Encounter Details Date Type Department Care Team (Late st Contact Info) Description 01/04/2024 Specialty [place] [address] Jeannie Villatoro, [facility] Social History Tobacco Use Types Packs/Day Years [...] Villatoro - 01/04/2024 11:59 PM EST The [facility] has completed a benefits investigation for Jose Bee to reviewtheir eligibility to fill at [facility]. Per patient's medication list they are prescribed Nubeqa 300mg tablet and the medication is able to be filled at the [facility], but the medication cost may not be financially viable. The patient is eligible to fill the medication through [facility] with a high copay. No PA required. Due to the high copay, the patient has been referred to [facility] for unishear operator assistance. documented in this encounter Plan of Treatment Upcoming Encounters Date Type Department Care Team (Late st Contact Info) Description 09/18/2024 10:20 AM EST Office [place] [address] Sriram Contreras MD [facility] [place] [address] 10/31/2024 1:30 PM EST Office Visit Hematology/Oncology at [address] [phone] Dmitry Bhatti MD [facility] [place] [address] Ellen Mcrae APRN [facility] [place] [address] 10/31/2024 2:00 PM EST Infusion Hematology Oncology at [address] [phone] documented as of this encounter Visit Diagnoses Not on filedocumented in this encounter Care Teams Packager Head Relationship Specialty Start Date End Date Paulino Finley MD [address] [place] [address] PCP - General Emergency Medicine 09/11/21 documented as of this encounter
--- OUTSIDE RECORDS SUMMARY | 2024-08-28 12:48 | XMS_ITS | Encounter Summary ---
[place] [address] Care Team Providers Care Professor Of Anthropology Name Role Phone Paulino Finley MD Primary Care Provider [phone] Reason for Visit * Reason Comments Chemotherapy Injections * Treatment/Therapy Plan Authorization (Routine) - Authorized Specialty Diagnoses / Procedures Referred By Contac t Referred To Contact Hematology and Oncology Diagnoses prostate- 3 month fuv. labs prior- cbc/diff,cmp,psa,test. lupron to follow Lupron Procedures TC LEUPROLIDE ACETATE 7.5MG, FOR DEPOST SUSPENSION (LUPRON DEPOT) INFUSION ROOM Dmitry Bhatti MD [address] [place] [address] DR H[place] [address] [facility] Hem Onc Infusion [address] [place] [phone] Referral ID Status Reason Start Date Expiration Date V isits Requested Visits Authorized [id number] Authorized 08/01/2024 08/01/2025 99 99 Encounter Details Date Type Department Care Team (Late st Contact Info) Description 08/01/2024 1:30 PM EDT Infusion Hematology Oncology at [address] [phone] Prostate cancer metastatic to multiple [...] as of this encounter Progress Notes * Aleyda Spear, RN - 08/01/2024 1:30 PM EDT Infusion Note Diagnosis:Prostate Cancer Treatment: Lupron Injection Lupron injected in left gluteal per pt request Patient instructed on side effects of Lupron. Patient states understanding of teaching, Patient aware to call clinic with any questions or concerns. Plan: Return to clinic as scheduled. documented in this encounter Plan of Treatment Upcoming Encounters Date Type Department Care Team (Late st Contact Info) Description 09/18/2024 10:20 AM EST Office [place] [address] Sriram Contreras MD [facility] [place] [address] 10/31/2024 1:30 PM EST Office Visit Hematology/Oncology at [address] [phone] Dmitry Bhatti MD [facility] DR HEMATOLOGY [place] [address] Ellen Mcrae APRN [facility] [place] [address] 10/31/2024 2:00 PM EST Infusion Hematology Oncology at [address] [phone] documented as of this encounter Visit Diagnoses Diagnosis Prostate cancer metastatic to multiple sites Malignant neoplasm of prostate documented in this encounter Administered Medications Inactive Administered Medications - up to 3 most recent administrations Medication Order MAR Action Action Date Dose Rate Site leuprolide (Lupron Depot) 22.5 mg (3 month) intramuscular syringe kit 22.5 mg 22.5 mg, Intramuscular, ONCE, 1 dose, On Wed08/01/24 at 1415, Routine, This agent is restricted to outpatient use. Is this drug being given as an outpatient? Yes Given 08/01/2024 2:04 PM EDT 22.5 mg Left Gluteal documented in this encounter Care Teams Professor Of Anthropology Relationship Specialty Start Date End Date Paulino Finley MD [address] [place] [address] PCP - General Emergency Medicine 09/11/21 documented as of this encounter
--- OUTSIDE RECORDS SUMMARY | 2024-08-28 12:48 | XMS_ITS | Encounter Summary ---
Author Organization [facility] [place] [address] Care Team Providers Care Gear Changer Name Role Phone Paulino Finley MD Primary Care Provider [phone] Encounter Details Date Type Department Care Team (Late st Contact Info) Description 08/01/2024 1:00 PM EDT Office Visit Hematology/Oncology at [address] [phone] Dmitry Bhatti MD [facility] [place] [address] Ellen Mcrae APRN [facility] [place] [address] Prostate cancer metastatic to multiple sites; Androgen deprivation therapy; Fatigue, unspecified type; Hot flashes Social History Tobacco Use Types Packs/Day Years [...] Mass Index 40.44 08/01/2024 1:04 PM EDT documented in this encounter Progress Notes * Ellen Mcrae, MATERIAL CONTROL SPECIALIST - 08/01/2024 1:00 PM EDT Images from the original [...] 3months.He has completed docetaxel chemotherapy and continues darolutamide. His treatment history is as detailed below. Interval history 08/01/24 Jose is in clinic for follow-up on metastatic prostate cancer, Lupron injection and Nubeqa toxicity check. Continues to have persistent fatigue. He has no issues with his bowels. His hair is starting to grow back. He has intermittent shooting pains in his feet since the c hemotherapy. Urination has improved significantly, however he does have nocturia 1-2x per night. Continues Flomax and follows with his PCP. No hematuria. No pain anywhere. No fever, chills, or signs of infection. Hot flashes are bothersome. BLE swelling has resolved. Has watery eyes that persist since chemotherapy. Saw his eye doctor and started eye drops which are not helping much. ROS is otherwi se negative. PMH: Periorbital cellulitis, chalazion and blepharitis on doxycycline 2023 A-fib on Eliquis COVID-19 infection September 03, 2023 Gross hematuria in August 24, 2023 Social History: No interval changes since last visit He is here with his today. They live in [place]. Medications: Your Medications Accurate as of August 01, 2024 1:25 PM. If you have any questions, ask [...] of infection. Nonicteric. Neck: No lymphadenopathy Cardiovascular: Irregular rate and rhythm, hx of afib. Resp: Effort normal. No respiratory distress. CTA Abdominal: Soft, NT, ND, BS+ Extremities: no swelling BP 110/55 (Patient Position: Sitting) Pulse 58 Temp 36.1 ??C (96.9 ??F) (Temporal) Resp 16 Ht 186.6 cm (6' 1.47) Wt (!) 140.8 kg (310 lb 6.4 oz) SpO2 99% BMI 40.44 kg/m?? Pathology: Final Diagnosis A. PROSTATE, RIGHT BASE LATERAL, NEEDLE CORE BIOPSY: - Atypical small acinar proliferation (LOLITA), suspicious for minute focus (0.1 mm) of prostatic adenocarcinoma. B. PROSTATE, RIGHT BASE MEDIAL, NEEDLE CORE BIOPSY: - Prostatic adenocarcinoma, involving 1 of 1 core. - [place] score 4 + 5 = 9 (grade group 5), tumor extent 1 mm (15% of core). - Perineural invasion is identified. C. PROSTATE, RIGHT MID LATERAL, NEEDLE CORE BIOPSY: - Prostatic adenocarcinoma, involving 1 of 1 core. - [place] score 5 + 4 = 9 (grade [...] adenocarcinoma, involving 1 of 1 core. - [place] score 5 + 4 = 9 (grade [...] 3 = 7 (grade group 3), 70% [place] pattern 4, tumor extent 6 mm (40% of core). - Cribriform [place] pattern 4 is present. I. PROSTATE, LEFT MID LATERAL, NEEDLE CORE BIOPSY: - Prostatic adenocarcinoma, involving 1 of 1 core. - Marko score 3 + 5 = 8 (grade group 4), tumor extent 4 mm (30% of core). J. PROSTATE, LEFT MID MEDIAL, NEEDLE CORE BIOPSY: - Prostatic adenocarcinoma, involving 1 of 1 core. - [place] score 4 + 5 = 9 (grade group 5), tumor extent 2 mm (15% of core). K. PROSTATE, LEFT APEX LATERAL, NEEDLE CORE BIOPSY: - Benign prostatic tissue. L. PROSTATE, LEFT APEX MEDIAL, NEEDLE CORE BIOPSY: - Prostatic adenocarcinoma, involving 1 of 1 core. - Marko score 5 + 4 = 9 (grade group 5), tumor extent 2 mm (20% of core). Labs: 08/01/24 WBC 5.28, hemoglobin 14.8, platelet count 162, ANC 2.82, sodium 143, potassium 4.2, BUN 24,creatinine 1.3, calcium 9.4, TB 0.51, AST 20, ALT 26, alkaline phosphatase 143, total protein 7.2, albumin 3.7 05/02/2024 WBC 5.94, hemoglobin 13.9, platelet count [...] PSA 17.2 Test 7.9 Date PSA Testosterone 07/25/24 0.04 05/02/24 0.02 <7.0 12/21/23 0.05 11/23/23 0.11 [...] Food and Drug Administration approved darolutamide (Nubeqa, [employer] tablets in combination with docetaxel for adult patients with metastatic hormone-sensitive prostate cancer (mHSPC). Efficacy was based on ARASENS ([id number]), a randomized, multicenter, double- blind, placebo-controlled clinical trial in 1306 patients with mHSPC. Patients were randomized to receive either darolutamide 600 mg orally twice daily plus docetaxel 75 mg/m2 intravenously administered every 3 weeks forup to 6 cycles or docetaxel plus placebo. All patients received a gonadotropin-releasing hormone analog concurrently or had a bilateral orchiectomy. The primary efficacy measure was overall survival (OS). Xjjc-kp-rvdt progression was an additional efficacy measure. Median OS was not reached (NR) (95% CI: NR, NR) in the darolutamide plus docetaxelarm and 48.9 months (95% CI: 44.4, NR) in docetaxel plus placebo arm (HR 0.68; 95% CI: 0.57, 0.80; p<0.0001). Treatment with darolutamide and docetaxel resulted in a statistically significant delay in jjwv-dj-jxdd progression (HR 0.79; 95% CI: 0.66, 0.95; [...] to continue on continuous ADT. 05/09/24 PSA 0.02 consistent with excellent PSA response to treatment. Testosterone in castrate range. 08/01/24 PSA 0.04, slightly up from 0.02 but remains low. His biggest complaint is fatigue. Discussed he could take a 2 week break from the Nubeqa and see how he feels off the medication, but he declines at this time. Continues lupron q 3 months. 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 Contreras #fatigue: secondary to treatment. Declines to take a break from chemotherapy. #LE swelling: Resolved. #Watery eyes; Possibly treatment related. Has seen his eye doctor and started eye drops which he isunsure is helping. #Nocturia: 1-2x per night. Continues Flomax per PCP. #A.fib: Continues to follow with PCP Dr. Finley #Hot flashes: tolerable. Declines treatment. Plan: Continue darolutamide 600 mg twice daily [...] 10:20 AM EST Office [place] [address] Sriram Contreras MD [facility] [place] [address] 10/31/2024 1:30 PM EST Office Visit Hematology/Oncology at [address] [phone] Dmitry Bhatti MD [facility] [place] [address] Ellen Mcrae APRN [facility] [place] [address] 10/31/2024 2:00 PM EST Infusion Hematology Oncology at [address] [phone] documented as of this encounter Visit Diagnoses Diagnosis Prostate cancer metastatic to multiple sites Malignant neoplasm of prostate Androgen deprivation therapy Encounter for therapeutic drug monitoring Fatigue, unspecified type Hot flashes Symptomatic menopausal or female climacteric states documented in this encounter Care Teams Gear Changer Relationship Specialty Start Date End Date Paulino Finley MD [address] [place] [address] PCP - General Emergency Medicine 09/11/21 documented as of this encounter
--- OUTSIDE RECORDS SUMMARY | 2024-08-28 12:48 | XMS_ITS | Encounter Summary ---
[place] [address] Care Team Providers Care Student Accounts Manager Name Role Phone Paulino Finley MD Primary Care Provider [phone] Encounter Details Date Type Department Care Team (Late st Contact Info) Description 08/07/2024 Notes [place] [address] Casi Dong Social History Tobacco Use Types [...] encounter Progress Notes * Casi Dong - 08/07/2024 3:53 PM EDT I sent a letter and the re-enrollment application for assistance with Nubeqa to the patient for them to complete, sign and return to the Medication Assistance Program. This is for the 2024 enrollmentyear. documented in this encounter Plan of Treatment Upcoming Encounters Date Type Department Care Team (Late st Contact Info) Description 09/18/2024 10:20 AM EST Office [place] [address] Sriram Contreras MD [facility] [place] [address] 10/31/2024 1:30 PM EST Office Visit Hematology/Oncology at [address] [phone] Dmitry Bhatti MD [facility] DR [place] [address] Ellen Mcrae APRN [facility] [place] [address] 10/31/2024 2:00 PM EST Infusion Hematology Oncology at [address] [phone] documented as of this encounter Visit Diagnoses Not on filedocumented in this encounter Care Teams Student Accounts Manager Relationship Specialty Start Date End Date Paulino Finley MD [address] [place] [address] PCP - General Emergency Medicine 09/11/21 documented as of this encounter
--- OUTSIDE RECORDS SUMMARY | 2024-08-28 12:48 | XMS_ITS | Encounter Summary ---
Author Organization [facility] [place] [address] Care Team Providers Care Supervisor Fish Bait Processing Name Role Phone Paulino Finley MD Primary Care Provider [phone] Encounter Details Date Type Department Care Team [...] 10:20 AM EST Office Visit [place] [address] Sriram Contreras MD [facility] [place] [address] 10/31/2024 1:30 PM EST Office Visit Hematology/Oncology at [address] [phone] Dmitry Bhatti MD [facility] [place] [address] Ellen Mcrae APRN [facility] [place] [address] 10/31/2024 2:00 PM EST Infusion Hematology Oncology at [address] [phone] documented as of this encounter Visit Diagnoses Not on filedocumented in this encounter Care Teams Supervisor Fish Bait Processing Relationship Specialty Start Date End Date Paulino Finley MD [address] [place] [address] PCP - General Emergency Medicine 09/11/21 documented as of this encounter
--- OUTSIDE RECORDS SUMMARY | 2024-08-28 12:48 | XMS_ITS | Encounter Summary ---
[place] [address] Care Team Providers Care Standards Engineer Name Role Phone Paulino Finley MD Primary Care Provider [phone] Reason for Visit * Reason Comments Injections * Treatment/Therapy Plan Authorization (Routine) - Authorized Specialty Diagnoses / Procedures Referred By Contbela t Referred To Contact Hematology and Oncology Diagnoses Prostate cancer metastatic to multiple sites Procedures TC LEUPROLIDE ACETATE 7.5MG, FOR DEPOST SUSPENSION (LUPRON DEPOT) [id number] LUPRON DEPOT Dmitry Bhatti MD [address] [place] [address] DR HEM[place]Y [place] [address] mDitry Bhatti MD [address] [place] [address] DR HEMAT[place]Y [place] [address] Referral ID Status Reason Start Date Expiration Date V isits Requested Visits Authorized [id number] Authorized 07/08/2023 08/01/2025 101 Encounter Details Date Type Department Care Team (Late st Contact Info) Description 05/09/2024 1:30 PM EDT Infusion Hematology Oncology at [address] [phone] Prostate cancer metastatic to multiple sites Social History Tobacco Use Types Packs/Day Years Used Date Smoking Tobacco: Former Cigarettes 1 27 1 9 - 1995 Pipe Smokeless Tobacco: [...] 10:20 AM EST Office [place] [address] Sriram Contreras MD [facility] [place] [address] 10/31/2024 1:30 PM EST Office Visit Hematology/Oncology at [address] [phone] Dmitry Bhatti MD [facility] DR HEMATOLOGY [place] [address] Ellen Mcrae APRN [facility] [place] [address] 10/31/2024 2:00 PM EST Infusion Hematology Oncology at [address] [phone] documented as of this encounter Visit Diagnoses [...] Gluteal documented in this encounter Care Teams Standards Engineer Relationship Specialty Start Date End Date Paulino Finley MD [address] [place] [address] PCP - General Emergency Medicine 09/11/21 documented as of this encounter
--- OUTSIDE RECORDS SUMMARY | 2024-08-28 12:48 | XMS_ITS | Encounter Summary ---
[place] [address] Care Team Providers Care Event Planning Intern Name Role Phone Paulino Finley MD Primary Care Provider [phone] Encounter Details Date Type Department Care Team (Latest Contact Info) Description 01/10/2024 1:14 PM EST - 01/10/2024 11:59 PM EST Hospital Encounter [place]ematology [place] [address] Prostate cancer metastatic to multiple sites Discharge [...] 10:20 AM EST Office [place] [address] Sriram Contreras MD [facility] [place] [address] 10/31/2024 1:30 PM EST Office Visit Hematology/Oncology at [address] [phone] Dmitry Bhatti MD [facility] DR HEMATOLOGY [place] [address] Ellen Mcrae APRN [facility] [place] [address] 10/31/2024 2:00 PM EST Infusion Hematology Oncology at [address] [phone] documented as of this encounter Procedures Procedure Name Priority Date/Time Associated Diagnosis Comments RESEARCH VENIPUNCTURE Routine 01/10/2024 1:22 PM EST Prostate cancer metastatic to multiple sites documented in this encounter Results * Research Venipuncture (01/10/2024 1:22 PM EST) Research Venipuncture Drawn [facility] Blood 01/10/2024 1:22 PM EST 01/10/2024 1:34 PM EST Narrative Resulting Agency Comment Spec In Lab Mey Tamez MD CHEMISTRY ORDERABLES Performing Organization Address City/State/[facility] Co de Phone Number [facility] [place] [address] documented in this encounter Visit Diagnoses Diagnosis Prostate cancer metastatic to multiple sites Malignant neoplasm of prostate documented in this encounter Care Teams Event Planning Intern Relationship Specialty Start Date End Date Paulino Finley MD [address] [place] [address] PCP - General Emergency Medicine 09/11/21 documented as of this encounter
--- OUTSIDE RECORDS SUMMARY | 2024-08-28 12:48 | XMS_ITS | Encounter Summary ---
Author Organization [facility] [place] [address] Care Team Providers Care Maintenance Shop Welder Name Role Phone Paulino Finley MD Primary Care Provider [phone] Encounter Details Date Type Department Care Team (Late st Contact Info) Description 05/09/2024 1:00 PM EDT Office Visit Hematology/Oncology at [address] [phone] Dmitry Steven MD [facility] DR [place] [address] Ellen Mcrae APRN [facility] [place] [address] Malignant neoplasm of prostate metastatic to bone [...] here with his today. They live in [place]. Medications: Your Medications Accurate as of May [...] adenocarcinoma, involving 1 of 1 core. - [place] score 4 + 5 = 9 (grade [...] adenocarcinoma, involving 1 of 1 core. - [place] score 5 + 4 = 9 (grade group 5), tumor extent 16 mm (100% of core). - Perineural invasion is identified. F. PROSTATE, RIGHT APEX MEDIAL, NEEDLE CORE BIOPSY: - Prostatic adenocarcinoma, involving 1 of 1 core. - [place] score 5 + 4 = 9 (grade group 5), tumor extent 15 mm (95% of core). - Perineural invasion is identified. G. PROSTATE, LEFT BASE LATERAL, NEEDLE CORE BIOPSY: - Atypical small acinar proliferation (LOLITA), highly suspicious for minute focus (0.1 mm) of prostatic adenocarcinoma. H. PROSTATE, LEFT BASE MEDIAL, NEEDLE CORE BIOPSY: - Prostatic adenocarcinoma, involving 1 of 1 core. - [place] score 4 + 3 = 7 (grade group 3), 70% [place] pattern 4, tumor extent 6 mm (40% [...] adenocarcinoma, involving 1 of 1 core. - [place] score 4 + 5 = 9 (grade [...] Food and Drug Administration approved darolutamide (Nubeqa, [employer] tablets in combination with docetaxel for adult patients with metastatic hormone-sensitive prostate cancer (mHSPC). Efficacy was based on ARASENS ([id number]), a randomized, multicenter, double- blind, placebo-controlled clinical trial in 1306 patients with mHSPC. Patients were randomized to receive either darolutamide 600 mg orally twice daily plus docetaxel 75 mg/m2 intravenously administered every 3 weeks forup to 6 cycles or docetaxel plus placebo. All patients received a gonadotropin-releasing hormone analog concurrently or had a bilateral orchiectomy. The primary efficacy measure was overall survival (OS). Ptjg-ww-khfk progression was an additional efficacy measure. Median OS was not reached (NR) (95% CI: NR, NR) in the darolutamide plus docetaxelarm and 48.9 months (95% CI: 44.4, NR) in docetaxel plus placebo arm (HR 0.68; 95% CI: 0.57, 0.80; p<0.0001). Treatment with darolutamide and docetaxel resulted in a statistically significant delay in lbra-bw-dvra progression (HR 0.79; 95% CI: 0.66, 0.95; [...] 10:20 AM EST Office [place] [address] Sriram Contreras MD [facility] [place] [address] 10/31/2024 1:30 PM EST Office Visit Hematology/Oncology at [address] [phone] Dmitry Steven MD [facility] [place] [address] Ellen Mcrae APRN [facility] [place] [address] 10/31/2024 2:00 PM EST Infusion Hematology Oncology at [address] [phone] Scheduled Orders Name Type Priority Associated Diagnoses [...] prostate documented in this encounter Care Teams Maintenance Shop Welder Relationship Specialty Start Date End Date Paulino Finley MD [address] [place] [address] PCP - General Emergency Medicine 09/11/21 documented as of this encounter
--- OUTSIDE RECORDS SUMMARY | 2024-08-28 12:48 | XMS_ITS | Encounter Summary ---
Author Organization [facility] [place] [address] Care Team Providers Care Head Tennis Coach Name Role Phone Paulino Finley MD Primary Care Provider [phone] Encounter Details Date Type Department Care Team (Late st Contact Info) Description 06/22/2024 [place] [address] Casi Dong Social History Tobacco Use Types [...] encounter Progress Notes * Casi Dong - 06/22/2024 11:40 AM EDT I sent a letter and the application for assistance with Nubeqa to the patient for them to complete,sign and return to the Medication Assistance Program. This is for renewal into the program as enrollment expires in July 2024. I sent the application for assistance with Nubeqa to Dr. Bhatti for their signature and prescription. I will follow through with the remainder of the application once everything is returned to me. documented in this encounter Plan of Treatment Upcoming Encounters Date Type Department Care Team (Late st Contact Info) Description 09/18/2024 10:20 AM EST Office [place] [address] Sriram Contreras MD [facility] [place] [address] 10/31/2024 1:30 PM EST Office Visit Hematology/Oncology at [address] [phone] Dmitry Bhatti MD [facility] DR [place]Y [place] [address] Ellen Mcrae APRN [facility] [place] [address] 10/31/2024 2:00 PM EST Infusion Hematology Oncology at [address] [phone] documented as of this encounter Visit Diagnoses Not on filedocumented in this encounter Care Teams Head Tennis Coach Relationship Specialty Start Date End Date Paulino Finley MD [address] [place] [address] PCP - General Emergency Medicine 09/11/21 documented as of this encounter
--- OUTSIDE RECORDS SUMMARY | 2024-08-28 12:48 | XMS_ITS | Encounter Summary ---
Author Organization [facility] [place] [address] Care Team Providers Care Vocational Rehabilitation Technician Name Role Phone Paulino Finley MD Primary Care Provider [phone] Encounter Details Date Type Department Care Team (Late Contact Info) Description 07/21/2024 Orders Only Hematology [place] [address] Patricia Partida Social History Tobacco Use Types Packs/Day Years [...] 10:20 AM EST Office Visit [place] [address] Sriram Contreras MD [facility] [place] [address] 10/31/2024 1:30 PM EST Office Visit Hematology/Oncology at [address] [phone] Dmitry Bhatti MD [facility] DR [place] [address] Ellen Mcrae APRN [facility] [place] [address] 10/31/2024 2:00 PM EST Infusion Hematology Oncology at [address] [phone] documented as of this encounter Visit Diagnoses Not on filedocumented in this encounter Care Teams Vocational Rehabilitation Technician Relationship Specialty Start Date End Date Paulino Finley MD [address] [place] [address] PCP - General Emergency Medicine 09/11/21 documented as of this encounter
--- OUTSIDE RECORDS SUMMARY | 2024-08-28 12:48 | XMS_ITS | Encounter Summary ---
Author Organization [facility] [place] [address] Care Team Providers Care Special Needs Caregiver Name Role Phone Paulino Finley MD Primary Care Provider [phone] Encounter Details Date Type Department Care Team (Late st Contact Info) Description 08/17/2024 Notes [place] [address] Casi Dong Social History Tobacco Use Types [...] encounter Progress Notes * Casi Dong - 08/17/2024 3:21 PM EDT I sent the re-enrollment application for assistance with Nubeqa to Dr. Bhatti for their signature and prescription. I will follow through with the remainder of the application once everything is returned to me. This is for the 2024 enrollment year. documented in this encounter Plan of Treatment Upcoming Encounters Date Type Department Care Team (Late st Contact Info) Description 09/18/2024 10:20 AM EST Office [place] [address] Sriram Contreras MD [facility] [place] [address] 10/31/2024 1:30 PM EST Office Visit Hematology/Oncology at [address] [phone] Dmitry Bhatti MD [facility] [place] [address] Ellen Mcrae APRN [facility] [place] [address] 10/31/2024 2:00 PM EST Infusion Hematology Oncology at [address] [phone] documented as of this encounter Visit Diagnoses Not on filedocumented in this encounter Care Teams Special Needs Caregiver Relationship Specialty Start Date End Date Paulino Finley MD [address] [place] [address] PCP - General Emergency Medicine 09/11/21 documented as of this encounter
--- OUTSIDE RECORDS SUMMARY | 2024-08-28 12:48 | XMS_ITS | Encounter Summary ---
Author Organization [facility] [place] [address] Care Team Providers Care Mechanic General Operational Test Name Role Phone Paulino Finley MD Primary Care Provider [phone] Encounter Details Date Type Department Care Team (Latest Contact Info) Description 07/31/2024 Travel Social History Tobacco Use Types Packs/Day [...] 10:20 AM EST Office [place] [address] Sriram Contreras MD [facility] [address] 10/31/2024 1:30 PM EST Office Visit Hematology/Oncology at [address] [address] Dmitry Bhatti MD [facility] DR HEMATOLOGY [place] [address] Ellen Mcrae APRN [facility] [place] [address] 10/31/2024 2:00 PM EST Infusion Hematology Oncology at [address] [phone] documented as of this encounter Visit Diagnoses Not on filedocumented in this encounter Care Teams Mechanic General Operational Test Relationship Specialty Start Date End Date Paulino Finley MD [address] [place] [address] PCP - General Emergency Medicine 09/11/21 documented as of this encounter
--- OUTSIDE RECORDS SUMMARY | 2024-08-28 12:48 | XMS_ITS | Encounter Summary ---
Author Organization [facility] [place] [address] Care Team Providers Care Booster Pump Operator Name Role Phone Paulino Finley MD Primary Care Provider [phone] Reason for Visit * Reason Onset Date Comments Results 02/02/2024 Encounter Details Date Type Department Care Team (Late st Contact Info) Description 02/02/2024 Telephone Hematology [place] [address] [facility] Hematology/[place] [address] Results Social History Tobacco Use Types Packs/Day [...] results is provided below. Please beadvised that [place] law requires that all health care workers respect the confidentiality ofthis information and not pass it along to other health care providers, insurance companies, or individuals without the written permission of the patient. The Familial Cancer Program welcomes any questions about these matters. Our phone number is: [phone]. On 01/10/2024 Jose was seen for genetic counseling and subsequently underwent genetic testing for a hereditary predisposition to cancers in eight major organ systems including breast, gynecologic,gastrointestinal, endocrine, genitourinary, skin, brain/nervous system, sarcoma and hematologic. Following are the results of this test. Result: [facility]'s CancerNext-Expanded +Codarica Panel showed no mutation was detected. This means that Jose does not carry a mutation in the genes detectable by this test. The following 71 genes were analyzed: AIP, ALK, APC, KATHARINA, BAP1, BARD1, BMPR1A, BRCA1, BRCA2, BRIP1, CDC73, CDH1, CDK4, CDKN1B, CDKN2A, CHEK2, DICER1, FH, FLCN, KIF1B, LZTR1, MAX, MEN1, MET, MLH1, MSH2, MSH6, MUTYH, NF1, NF2, NTHL1, PALB2, PHOX2B, PMS2, POT1, PUNRM3X, PTCH1, PTEN, RAD51C, RAD51D, RB1, RET, SDHA, SDHAF2, SDHB, SDHC,SDHD, SMAD4, SMARCA4, SMARCB1, SMARCE1, STK11, SUFU, ZDCZ005, TP53, TSC1, TSC2 and VHL (sequencing and [...] the genes with no increased cancer risks. [facility] is continually collecting and analyzing their data, [...] and mailing address stay updated in the [facility] system, in order for us to reach [...] Periodic colonoscopy screening as recommended by Jose's wellness nurse. Skin cancer screening Skin cancer screening and sun protection are important for everyone, regardless of genetic predisposition. Consideration of routine dermatologic/skin exams, as recommended by Jose's primary care provideror chemical pumper. documented in this encounter Plan of Treatment Upcoming Encounters Date Type Department Care Team (Late st Contact Info) Description 09/18/2024 10:20 AM EST Office [place] [phone] Sriram Contreras MD [facility] [place] [address] 10/31/2024 1:30 PM EST Office Visit Hematology/Oncology at [address] [phone] Dmitry Bhatti MD [facility] DR [place] [address] Ellen Mcrae APRN [facility] [place] [address] 10/31/2024 2:00 PM EST Infusion Hematology Oncology at [address] [phone] documented as of this encounter Visit Diagnoses Not on filedocumented in this encounter Care Teams Booster Pump Operator Relationship Specialty Start Date End Date Paulino Finley MD [address] [place] [address] PCP - General Emergency Medicine 09/11/21 documented as of this encounter
--- OUTSIDE RECORDS SUMMARY | 2024-08-28 12:48 | XMS_ITS | Encounter Summary ---
Author Organization [facility] [place] [address] Care Team Providers Care Insurance Processing Clerk Name Role Phone Paulino Finley MD Primary Care Provider [phone] Encounter Details Date Type Department Care Team [...] 10:20 AM EST Office [place] [address] Sriram Contreras MD [facility] [place] [address] 10/31/2024 1:30 PM EST Office Visit Hematology/Oncology at [address] [address] Dmitry Bhatti MD [facility] DR [place] [address] Ellen Mcrae APRN [facility] [place] [address] 10/31/2024 2:00 PM EST Infusion Hematology Oncology at [address] [phone] documented as of this encounter Visit Diagnoses Not on filedocumented in this encounter Care Teams Insurance Processing Clerk Relationship Specialty Start Date End Date Paulino Finley MD [address] [place] [address] PCP - General Emergency Medicine 09/11/21 documented as of this encounter
--- OUTSIDE RECORDS SUMMARY | 2024-08-28 12:48 | XMS_ITS | Encounter Summary ---
[place] [address] Care Team Providers Care Manager Chemistry Name Role Phone Paulino Finley MD Primary Care Provider [phone] Reason for Visit * Reason Comments Injections IM Lupron * Treatment/Therapy Plan Authorization (Routine) - Authorized Specialty Diagnoses / Procedures Referred By Contac t Referred To Contact Hematology and Oncology Diagnoses Prostate cancer metastatic to multiple sites Procedures TC LEUPROLIDE ACETATE 7.5MG, FOR DEPOST SUSPENSION (LUPRON DEPOT) [id number] LUPRON DEPOT Dmitry Bhatti MD [address] [place] [address] [place] [address] Dmitry Bhatti MD [address] [place] [address] DR [place] [address] Referral ID Status Reason Start Date Expiration Date V isits Requested Visits Authorized [id number] Authorized 07/08/2023 08/01/2025 101 Encounter Details Date Type Department Care Team (Late st Contact Info) Description 02/01/2024 10:00 AM EDT Infusion Hematology Oncology at [address] [phone] Prostate cancer metastatic to multiple [...] 10:20 AM EST Office [place] [address] Sriram Contreras MD [facility] [place] [address] 10/31/2024 1:30 PM EST Office Visit Hematology/Oncology at [address] [phone] Dmitry Bhatti MD [facility] [place] [address] Ellen Mcrae APRN [facility] [place] [address] 10/31/2024 2:00 PM EST Infusion Hematology Oncology at [address] [phone] documented as of this encounter Visit Diagnoses Diagnosis Prostate cancer metastatic to multiple sites Malignant neoplasm of prostate documented in this encounter Administered Medications Inactive Administered Medications - up to 3 most recent administrations Medication Order MAR Action Action Date Dose Rate Site leuprolide (Lupron Depot) injection 22.5 mg 22.5 mg, Intramuscular, ONCE, 1 dose, On Tu02/01/24 at 1045, Last injection site was... leuprolide IM injection site: L Gluteal (08/10/2023 1:24 PM), Routine, This agent is restricted to outpatient use. Is this drug being given as an outpatient? Yes Given 02/01/2024 10:41 AM EDT 22.5 mg Right Gluteal documented in this encounter Care Teams Manager Chemistry Relationship Specialty Start Date End Date Paulino Finley MD [address] [place] [address] PCP - General Emergency Medicine 09/11/21 documented as of this encounter
--- OUTSIDE RECORDS SUMMARY | 2024-08-28 12:48 | XMS_ITS ---
Author Organization [facility] [place] [address] Care Team Providers Care Cold Roll Catcher Name Role Phone Paulino Finley MD Primary Care Provider [phone] Active Problems Problem Noted Date Diagnosed Date [...] planning in progress 05/2017 Current Oncology Plans Leuprolide (Lupron Depot) injection ([facility], [place], MAN, NDP, [facility], NLH, NS)* Plan Start Date:08/10/2023 Plan Provider:Dmitry Bhatti MD Linked Problems Prostate cancer metastatic t o multiple sites Treatment Medications No medications scheduled. Past Plans ADULT TREATMENT Plan Name Start Date Discontinue Date Treatment Medications Discontinue Reason Plan Provider Cycles BCN AMB ONC -PROSTATE CANCER - DOCEtaxel 08/10/2023 07/21/2024 DOCEtaxeL (Taxotere) in sodium chloride 0.9% 250 mL infusion Therapy Complete Dmitry Bhatti MD 6 of 6 cycles started Radiation Treatments * No radiation treatments are documented for this patient in [facility]. Treatments may have been administered in another system. Resolved Problems Problem Noted Date Diagnosed Date Resolved Date Acute respiratory failure 07/20/2017 Overview (07/20/2017): Worsening oxygenation.
--- OUTSIDE RECORDS SUMMARY | 2024-08-28 12:48 | XMS_ITS | Encounter Summary ---
Author Organization [facility] [place] [place] [address] Care Team Providers Care Director Records Management Name Role Phone Paulino Finley MD Primary Care Provider [phone] Encounter Details Date Type Department Care Team (Late Contact Info) Description 03/27/2024 Telephone Hematology/Oncology at [address] [phone] Halima Cesar Social History Tobacco Use Types [...] 10:20 AM EST Office [place] [address] Sriram Contreras MD [facility] [place] [address] 10/31/2024 1:30 PM EST Office Visit Hematology/Oncology at [address] [phone] Dmitry Bhatti MD [facility] DR [place] [address] Ellen Mcrae APRN [facility] [place] [address] 10/31/2024 2:00 PM EST Infusion Hematology Oncology at [address] [phone] documented as of this encounter Visit Diagnoses Not on filedocumented in this encounter Care Teams Director Records Management Relationship Specialty Start Date End Date Paulino Finley MD [address] [place] [address] PCP - General Emergency Medicine 09/11/21 documented as of this encounter
--- OUTSIDE RECORDS SUMMARY | 2024-08-28 12:48 | XMS_ITS | Encounter Summary ---
Author Organization [facility] [place] [address] Care Team Providers Care Natural Resource Manager Name Role Phone Paulino Finley MD Primary Care Provider [phone] Encounter Details Date Type Department Care Team (Late st Contact Info) Description 07/11/2024 Notes [place] [phone] Casi Dong Social History Tobacco Use Types [...] encounter Progress Notes * Casi Dong - 07/11/2024 10:52 AM EDT I faxed the application for assistance with Nubeqa to [employer]. I will follow through once the graduate civil engineer program makes a decision. documented in this encounter Plan of Treatment Upcoming Encounters Date Type Department Care Team (Late st Contact Info) Description 09/18/2024 10:20 AM EST Office [place] [address] Sriram Contreras MD [facility] [place] [address] 10/31/2024 1:30 PM EST Office Visit Hematology/Oncology at [address] [phone] Dmitry Bhatti MD [facility] DR HEMATOLOGY [place] [address] Ellen Mcrae APRN [facility] [place] [address] 10/31/2024 2:00 PM EST Infusion Hematology Oncology at [address] [phone] documented as of this encounter Visit Diagnoses Not on filedocumented in this encounter Care Teams Natural Resource Manager Relationship Specialty Start Date End Date Paulino Finley MD [address] [place] [address] PCP - General Emergency Medicine 09/11/21 documented as of this encounter
--- OUTSIDE RECORDS SUMMARY | 2024-08-28 12:48 | XMS_ITS | Encounter Summary ---
Author Organization [facility] Address [facility] [place] [place] [address] Care Team Providers Care Nursery Manager Name Role Phone Paulino Finley MD Primary Care Provider [phone] Reason for Visit * Reason Comments Genetic Evaluation * Consultation (Urgent) - Closed Specialty Diagnoses / Procedures Referred By Huma valladares Referred To Contact Genetics Diagnoses Prostate cancer metastatic to multiple sites Dmitry Bhatti MD [facility] DR [place]AT[place] [address] [facility] Hem Onc [address] [place] [address] Referral ID Status Reason Start Date Expiration Date V isits Requested Visits Authorized [id number] Closed Consult, Test & Treat 12/21/2023 12/20/2024 1 1 Encounter Details Date Type Department Care Team (Late st Contact Info) Description 01/10/2024 1:00 PM EST Office Visit Hematology [place] [address] [facility]en Brown [facility] Dr Hematology/[place] [address] Malignant neoplasm of prostate metastatic [...] on May 13. Pathology revealed prostatic adenocarcinoma Roderick 5+4. Staging CT abdomen and pelvis and [...] adenocarcinoma, involving 1 of 1 core. - Philadelphia score 4 + 5 = 9 (grade [...] adenocarcinoma, involving 1 of 1 core. - Philadelphia score 5 + 4 = 9 (grade [...] 1 core. - Roderick score 4 + 3 = 7 (grade group 3), 70% Roderick pattern 4, tumor extent 6 mm (40% of core). - Cribriform Philadelphia pattern 4 is present. I. PROSTATE, LEFT MID LATERAL, NEEDLE CORE BIOPSY: - Prostatic adenocarcinoma, involving 1 of 1 core. - Philadelphia score 3 + 5 = 8 (grade group 4), tumor extent 4 mm (30% of core). J. PROSTATE, LEFT MID MEDIAL, NEEDLE CORE BIOPSY: - Prostatic adenocarcinoma, involving 1 of 1 core. - Philadelphia score 4 + 5 = 9 (grade [...] Cancer Paternal Aunt Maternal ethnic background is Y[place]ut, Norwegian. Paternal ethnic background is [place]ut, Par[place]. There is no known Ashkenazi Baptist ancestry. Genetic risk assessment Based on personal [...] as to identify hereditary cancer risks for Joes and his relatives. Panel genetic testing for [...] at [email or web address]. Jose opted for testing with [facility] CancerNext-Expanded +RNAinsight Panel, a next generation sequencing panel that simultaneously analyzes 71 genes, including BRCA1 and BRCA2, that contribute to increased risk for cancer. Jose was consented. His blood sample was drawn and sent to [facility]. Testing will take up to 3 weeks [...] 10:20 AM EST Office [place] [address] Sriram Contreras MD [facility] [place] [address] 10/31/2024 1:30 PM EST Office Visit Hematology/Oncology at [address] [phone] Dmitry Bhatti MD [facility] HEMATOLOGY [place] [address] Ellen Mcrae APRN [facility] [place] [address] 10/31/2024 2:00 PM EST Infusion Hematology Oncology at [address] [phone] Scheduled Referrals Name Type Priority Associated Diagnoses [...] breast documented in this encounter Care Teams Nursery Manager Relationship Specialty Start Date End Date Paulino Finley MD [address] [place] [address] PCP - General Emergency Medicine 09/11/21 documented as of this encounter
--- OUTSIDE RECORDS SUMMARY | 2024-08-28 12:49 | XMS_ITS | Encounter Summary ---
Author Organization [facility] [place] [address] Care Team Providers Care Pre Press Manager Name Role Phone Paulino Finley MD Primary Care Provider [phone] Reason for Visit * Reason Onset Date Comments Other 08/11/2023 Encounter Details Date Type Department Care Team (Late st Contact Info) Description 08/11/2023 Telephone Hematology/Oncology at [address] [phone] Shad Hernandez RN Other Social [...] 10:20 AM EST Office [place] [address] Sriram Contreras MD [facility] [place] [address] 10/31/2024 1:30 PM EST Office Visit Hematology/Oncology at [address] [phone] Dmitry Bhatti MD [facility] DR HEMATOLOGY [place] [address] Ellen Mcrae APRN [facility] [place] [address] 10/31/2024 2:00 PM EST Infusion Hematology Oncology at [address] [phone] documented as of this encounter Visit Diagnoses Not on filedocumented in this encounter Care Teams Pre Press Manager Relationship Specialty Start Date End Date Paulino Finley MD [address] [place] [address] PCP - General Emergency Medicine 09/11/21 documented as of this encounter
--- OUTSIDE RECORDS SUMMARY | 2024-08-28 12:49 | XMS_ITS | Encounter Summary ---
Author Organization [facility] [place] [address] Care Team Providers Care Nutritional Health Coach Name Role Phone Paulino Finley MD Primary Care Provider [phone] Encounter Details Date Type Department Care Team [...] 10:20 AM EST Office Visit [place] [address] Sriram Contreras MD [facility] [place] [address] 10/31/2024 1:30 PM EST Office Visit Hematology/Oncology at [address] [address] Dmitry Bhatti MD [facility] DR HEMATOLOGY [place] [address] Ellen Mcrae APRN [facility] [place] [address] 10/31/2024 2:00 PM EST Infusion Hematology Oncology at [address] [phone] documented as of this encounter Visit Diagnoses Not on filedocumented in this encounter Care Teams Nutritional Health Coach Relationship Specialty Start Date End Date Paulino Finley MD [address] [place] [address] PCP - General Emergency Medicine 09/11/21 documented as of this encounter
--- OUTSIDE RECORDS SUMMARY | 2024-08-28 12:49 | XMS_ITS | Encounter Summary ---
Author Organization [facility] [place] [address] Care Team Providers Care Beverage Specialist Name Role Phone Paulino Finley MD Primary Care Provider [phone] Encounter Details Date Type Department Care Team (Late st Contact Info) Description 09/07/2023 [place] [address] Casi Dong Social History Tobacco Use Types [...] 09/07/2023 9:55 AM EDT Call placed to [email or web address] [facility] regarding paperwork that Jose received about renewal. I confirmed that Jose is enrolled in the program through 08/06/2024 and the sales representative aircraft advised that the paperwork was sent out in error. Call placed to patient, spoke to spouse, advised he is enrolled through 08/06/2024 and he does not need to complete re enrollment paperwork, per [employer]. documented in this encounter Plan of Treatment Upcoming Encounters Date Type Department Care Team (Late st Contact Info) Description 09/18/2024 10:20 AM EST Office Visit [place] [address] Sriram Contreras MD [facility] [place] [address] 10/31/2024 1:30 PM EST Office Visit Hematology/Oncology at [address] [phone] Dmitry Bhatti MD [facility] DR HEMATOLOGY [place] [address] Ellen Mcrae APRN [facility] [place] [address] 10/31/2024 2:00 PM EST Infusion Hematology Oncology at [address] [phone] documented as of this encounter Visit Diagnoses Not on filedocumented in this encounter Care Teams Beverage Specialist Relationship Specialty Start Date End Date Paulino Finley MD [address] [place] [address] PCP - General Emergency Medicine 09/11/21 documented as of this encounter
--- OUTSIDE RECORDS SUMMARY | 2024-08-28 12:49 | XMS_ITS | Encounter Summary ---
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 Procedures TC DOCETAXEL, 1MG, INJECTION TC PEGFILGRASTIM, EXCLUDES BIOSIMILAR, 0.5 MG, INJ J9171 DOCETAXEL J2506 NEULASTA ONPRO Dmitry Bhatti MD [address] [place] [address] DR HEM[place]OLOGY [place] [address] Dmitry Bhatti MD [address] [place] [address] DR HEMATOLOGY [place] [address] Referral ID Status Reason Start Date Expiration Date Visits Re quested Visits Authorized [id number] Closed 07/08/2023 07/07/2024 99 99 Encounter Details Date Type Department Care Team (Late st Contact Info) Description 10/12/2023 9:30 AM EST Infusion Hematology Oncology at [address] [phone] Prostate cancer metastatic to multiple sites; Malignant [...] Hg 12.1, Plt 210, ANC 3.98, Cr/BUN 1.2 IV ACCESS: PIV placed and removed after [...] 10:20 AM EST Office Visit [place] [address] Sriram Contrersa MD [facility] [place] [address] 10/31/2024 1:30 PM EST Office Visit Hematology/Oncology at [address] [phone] Dmitry Bhatti MD [facility] DR [place] [address] Ellen Mcrae APRN [facility] [place] [address] 10/31/2024 2:00 PM EST Infusion Hematology Oncology at [address] [phone] documented as of this encounter Visit Diagnoses [...] mL/hr documented in this encounter Care Teams Food Beverage Attendant Relationship Specialty Start Date End Date Paulino Finley MD [address] [place] [address] PCP - General Emergency Medicine 09/11/21 documented as of this encounter
--- OUTSIDE RECORDS SUMMARY | 2024-08-28 12:49 | XMS_ITS | Encounter Summary ---
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 Procedures TC DOCETAXEL, 1MG, INJECTION TC PEGFILGRASTIM, EXCLUDES BIOSIMILAR, 0.5 MG, INJ J9171 DOCETAXEL J2506 NEULASTA ONPRO Dmitry Bhatti MD [address] [place] [address] DR HEMATOLOGY [place] [address] Dmitry Bhatti MD [address] [place] [address] DR HEMATOLOGY [place] [address] Referral ID Status Reason Start Date Expiration Date Visits Re quested Visits Authorized [id number] Closed 07/08/2023 07/07/2024 99 99 Encounter Details Date Type Department Care Team (Late st Contact Info) Description 11/02/2023 1:30 PM EST Infusion Hematology Oncology at [address] [phone] Prostate cancer metastatic to multiple sites; Malignant [...] patient's height, weight and BSA by EVAN SPEAR RN & onsite pharmasist REACTIONS (DESCRIPTION, TIME, [...] 10:20 AM EST Office [place] [address] Sriram Contreras MD [facility] [place] [address] 10/31/2024 1:30 PM EST Office Visit Hematology/Oncology at [address] [address] Dmitry Bhatti MD [facility] HEMATOLOGY [place] [address] Ellen Mcrae APRN [facility] DR MEDICAL ONCOLOGY [place] [address] 10/31/2024 2:00 PM EST Infusion Hematology Oncology at [address] [phone] documented as of this encounter [...] mL/hr documented in this encounter Care Teams Welding Robot Operator Relationship Specialty Start Date End Date Paulino Finley MD [address] [place] [address] PCP - General Emergency Medicine 09/11/21 documented as of this encounter
--- OUTSIDE RECORDS SUMMARY | 2024-08-28 12:49 | XMS_ITS | Encounter Summary ---
Author Organization [facility] [place] [address] Care Team Providers Care Airset Molder Name Role Phone Paulino Finley MD Primary Care Provider [phone] Encounter Details Date Type Department Care Team [...] 10:20 AM EST Office [place] [address] [facility] [place] [address] 10/31/2024 1:30 PM EST Office Visit Hematology/Oncology at [address] [address] [facility] DR HEMATOLOGY [place] [address] [facility] [place] [address] 10/31/2024 2:00 PM EST Infusion Hematology Oncology at [address] [phone] documented as of this encounter Visit Diagnoses Not on filedocumented in this encounter Care Teams Airset Molder Relationship Specialty Start Date End Date Paulino Finley MD [address] [place] [address] PCP - General Emergency Medicine 09/11/21 documented as of this encounter
--- OUTSIDE RECORDS SUMMARY | 2024-08-28 12:49 | XMS_ITS | Encounter Summary ---
Author Organization [facility] [place] [address] Care Team Providers Care Older Worker Specialist Name Role Phone Paulino Finley MD Primary Care Provider [phone] Encounter Details Date Type Department Care Team [...] 10:20 AM EST Office [place] [address] Sriram Contreras MD [facility] [place] [address] 10/31/2024 1:30 PM EST Office Visit Hematology/Oncology at [address] [address] Dmitry Bhatti MD [facility] DR HEMATOLOGY [place] [address] Ellen Mcrae APRN [facility] [place] [address] 10/31/2024 2:00 PM EST Infusion Hematology Oncology at [address] [phone] documented as of this encounter Visit Diagnoses Not on filedocumented in this encounter Care Teams Older Worker Specialist Relationship Specialty Start Date End Date Paulino Finley MD [address] [place] [address] PCP - General Emergency Medicine 09/11/21 documented as of this encounter
--- OUTSIDE RECORDS SUMMARY | 2024-08-28 12:49 | XMS_ITS | Encounter Summary ---
Author Organization [facility] [place] [address] Care Team Providers Care Parts Room Associate Name Role Phone Paulino Finley MD Primary Care Provider [phone] Encounter Details Date Type Department Care Team (Late st Contact Info) Description 08/31/2023 11:00 AM EDT Office Visit Hematology/Oncology at [address] [phone] Dmitry Bhatti MD [facility] [place] [address] Dina Schrader APRN [facility] [place] [address] Malignant neoplasm of prostate metastatic to bone [...] on May 13. Pathology revealed prostatic adenocarcinoma Mackinaw 5+4. Staging CT abdomen and pelvis and [...] fibrillation March 2017: noted in ED in [facility]. Previously noted to be paroxysmal. 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 He is to Briana for 40 yrs. 4 children - All live in different states - [place] Enjoys raising Beef Cattle and doing Civil War and Living History and shoot Black powder/Antique firearms. He enjoys builiding Firearms/Blacksmithing - Charcoal, [place], etc. Social Determinants of Health Financial Resource [...] adenocarcinoma, involving 1 of 1 core. - Mackinaw score 4 + 5 = 9 (grade [...] adenocarcinoma, involving 1 of 1 core. - [place] score 5 + 4 = 9 (grade [...] adenocarcinoma, involving 1 of 1 core. - [place]in[place] score 3 + 5 = 8 (grade [...] adenocarcinoma, involving 1 of 1 core. - [place] score 5 + 4 = 9 (grade [...] Food and Drug Administration approved darolutamide (Nubeqa[employer] tablets in combination with docetaxel for adult patients with metastatic hormone-sensitive prostate cancer (mHSPC). Efficacy was based on ARASENS ([id number]), a randomized, multicenter, double- blind, placebo-controlled clinical trial in 1306 patients with mHSPC. Patients were randomized to receive either darolutamide 600 mg orally twice daily plus docetaxel 75 mg/m2 intravenously administered every 3 weeks forup to 6 cycles or docetaxel plus placebo. All patients received a gonadotropin-releasing hormone analog concurrently or had a bilateral orchiectomy. The primary efficacy measure was overall survival (OS). Dvdd-wn-rtye progression was an additional efficacy measure. Median OS was not reached (NR) (95% CI: NR, NR) in the darolutamide plus docetaxelarm and 48.9 months (95% CI: 44.4, NR) in docetaxel plus placebo arm (HR 0.68; 95% CI: 0.57, 0.80; p<0.0001). Treatment with darolutamide and docetaxel resulted in a statistically significant delay in bvcx-wq-uard progression (HR 0.79; 95% CI: 0.66, 0.95; [...] 10:20 AM EST Office [place] [address] Sriram Contreras MD [facility] [place] [place] [address] 10/31/2024 1:30 PM EST Office Visit Hematology/Oncology at [address] [phone] Dmitry Bhatti MD [facility] [place] [address] Ellen Mcrae APRN [facility] [place] [address] 10/31/2024 2:00 PM EST Infusion Hematology Oncology at [address] [phone] documented as of this encounter Visit Diagnoses Diagnosis Malignant neoplasm of prostate metastatic to bone Malignant neoplasm of prostate documented in this encounter Care Teams Parts Room Associate Relationship Specialty Start Date End Date Paulino Finley MD [address] [place] [address] PCP - General Emergency Medicine 09/11/21 documented as of this encounter
--- OUTSIDE RECORDS SUMMARY | 2024-08-28 12:49 | XMS_ITS | Encounter Summary ---
Author Organization [facility] [place] [address] Care Team Providers Care Inspector Rubber Stamp Die Name Role Phone Paulino Finley MD Primary Care Provider [phone] Encounter Details Date Type Department Care Team (Late Contact Info) Description 08/23/2023 Orders Only Hematology/Oncology at [address] [phone] Dmitry Bhatti MD [facility] DR HEMATOLOGY [place] [address] Malignant neoplasm of prostate metastatic to bone; [...] 10:20 AM EST Office Visit [place] [address] Sriram Contreras MD [facility] [place] [address] 10/31/2024 1:30 PM EST Office Visit Hematology/Oncology at [address] [phone] Dmitry Bhatti MD [facility] DR HEMATOLOGY [place] [address] Ellen Mcrae APRN [facility] [place] [address] 10/31/2024 2:00 PM EST Infusion Hematology Oncology at [address] [phone] documented as of this encounter Visit Diagnoses Diagnosis Malignant neoplasm of prostate metastatic to bone Malignant neoplasm of prostate Hematuria, unspecified type documented in this encounter Care Teams Inspector Rubber Stamp Die Relationship Specialty Start Date End Date Paulino Finley MD [address] [place] [address] PCP - General Emergency Medicine 09/11/21 documented as of this encounter
--- OUTSIDE RECORDS SUMMARY | 2024-08-28 12:49 | XMS_ITS | Encounter Summary ---
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 Procedures TC DOCETAXEL, 1MG, INJECTION TC PEGFILGRASTIM, EXCLUDES BIOSIMILAR, 0.5 MG, INJ J9171 DOCETAXEL J2506 NEULASTA ONPRO Dmitry Bhatti MD [address] [place] [address] [place] [address] Dmitry Bhatti MD [address] [place] [address] [place] [address] Referral ID Status Reason Start Date Expiration Date Visits Re quested Visits Authorized [id number] Closed 07/08/2023 07/07/2024 99 99 Encounter Details Date Type Department Care Team (Late st Contact Info) Description 11/23/2023 1:30 PM EST Infusion Hematology Oncology at [address] [phone] Prostate cancer metastatic to multiple sites; Malignant [...] 10:20 AM EST Office [place] [address] Sriram Contreras MD [facility] [place] [address] 10/31/2024 1:30 PM EST Office Visit Hematology/Oncology at [address] [phone] Dmitry Bhatti MD [facility] [place] [address] Ellen Mcrae APRN [facility] [place] [address] 10/31/2024 2:00 PM EST Infusion Hematology Oncology at [address] [phone] documented as of this encounter [...] mL/hr documented in this encounter Care Teams Energy And Conservation Technician Relationship Specialty Start Date End Date Paulino Finley MD [address] [place] [address] PCP - General Emergency Medicine 09/11/21 documented as of this encounter
--- OUTSIDE RECORDS SUMMARY | 2024-08-28 12:49 | XMS_ITS | Encounter Summary ---
Author Organization [facility] [place] [address] Care Team Providers Care Shadowgraph Operator Name Role Phone Paulino Finley MD Primary Care Provider [phone] Encounter Details Date Type Department Care Team [...] 10:20 AM EST Office [place] [address] Sriram Contreras MD [facility] [place] [address] 10/31/2024 1:30 PM EST Office Visit Hematology/Oncology at [address] [phone] Dmitry Bhatti MD [facility] DR HEMATOLOGY [place] [address] Ellen Mcrae APRN [facility] [place] [address] 10/31/2024 2:00 PM EST Infusion Hematology Oncology at [address] [phone] documented as of this encounter Visit Diagnoses Not on filedocumented in this encounter Care Teams Shadowgraph Operator Relationship Specialty Start Date End Date Paulino Finley MD [address] [place] [address] PCP - General Emergency Medicine 09/11/21 documented as of this encounter
--- OUTSIDE RECORDS SUMMARY | 2024-08-28 12:49 | XMS_ITS | Encounter Summary ---
[place] [address] Care Team Providers Care Environmental Services Director Name Role Phone Paulino Finley MD Primary Care Provider [phone] Reason for Visit * Reason Onset Date Comments Questions 11/25/2023 Encounter Details Date Type Department Care Team (Late st Contact Info) Description 11/25/2023 Telephone Hematology/Oncology at [address] [phone] Shad Hernandez, BRENNA Questions Social [...] 8:38 AM EST Called and reported to [facility] that ABT of either type to treat eye infection is fine from our standpoint. ---- Message from Dmitry Bhatti MD sent at 11/24/2023 8:01 PM EST ----- Regarding: RE: antibiotics Fine with me.No interaction with our treatment. Thanks, Dmitry ----- Message ----- From: Shad Hernandez RN Sent: 11/24/2023 9:03 AM EST To: Dmitry Bhatti MD Subject: antibiotics Pt just saw eye doctor who wants to prescribe augmentin or doxycycline for eye infection. Is either okay with you? Please advise, Shad RN ----- Message ----- From: Karlie Webb Sent: 11/24/2023 8:48 AM EST To: [facility] Hem Onc Nurse Irene from [facility] called. They need to make know if any of the antibiotics they prescribefor him will have any counter effects with his current medications. [phone] documented in this encounter Plan of Treatment Upcoming Encounters Date Type Department Care Team (Late st Contact Info) Description 09/18/2024 10:20 AM EST Office Visit [place] [address] Sriram Contreras MD [facility] [place] [address] 10/31/2024 1:30 PM EST Office Visit Hematology/Oncology at [address] [phone] Dmitry Bhatti MD [facility] DR [place] [address] Ellen Mcrae APRN [facility] [place] [address] 10/31/2024 2:00 PM EST Infusion Hematology Oncology at [address] [phone] documented as of this encounter Visit Diagnoses Not on filedocumented in this encounter Care Teams Environmental Services Director Relationship Specialty Start Date End Date Paulino Finley MD [address] [place] [address] PCP - General Emergency Medicine 09/11/21 documented as of this encounter
--- OUTSIDE RECORDS SUMMARY | 2024-08-28 12:49 | XMS_ITS | Encounter Summary ---
Author Organization [facility] [place] [address] Care Team Providers Care Crm Dynamics Developer Name Role Phone Paulino Finley MD Primary Care Provider [phone] Encounter Details Date Type Department Care Team (Late st Contact Info) Description 09/09/2023 Notes Only Hematology/Oncology at [address] [phone] Dina Schrader APRN [facility] [place] [address] Social History Tobacco Use Types Packs/Day Years [...] 10:20 AM EST Office [place] [address] Sriram Contreras MD [facility] [place] [address] 10/31/2024 1:30 PM EST Office Visit Hematology/Oncology at [address] [phone] Dmitry Bhatti MD [facility] DR HEMATOLOGY [place] [address] Ellen Mcrae APRN [facility] [place] [address] 10/31/2024 2:00 PM EST Infusion Hematology Oncology at [address] [phone] documented as of this encounter Visit Diagnoses Not on filedocumented in this encounter Care Teams Crm Dynamics Developer Relationship Specialty Start Date End Date Paulino Finley MD [address] [place] [address] PCP - General Emergency Medicine 09/11/21 documented as of this encounter
--- OUTSIDE RECORDS SUMMARY | 2024-08-28 12:49 | XMS_ITS | Encounter Summary ---
Author Organization [facility] [place] [address] Care Team Providers Care Lump Maker Name Role Phone Paulino Finley MD Primary Care Provider [phone] Encounter Details Date Type Department Care Team [...] 10:20 AM EST Office Visit [place] [address] Sriram Contreras MD [facility] [place] [address] 10/31/2024 1:30 PM EST Office Visit Hematology/Oncology at [address] [address] Dmitry Bhatti MD [facility] DR HEMATOLOGY [place] [address] Ellen Mcrae APRN [facility] [place] [address] 10/31/2024 2:00 PM EST Infusion Hematology Oncology at [address] [phone] documented as of this encounter Visit Diagnoses Not on filedocumented in this encounter Care Teams Lump Maker Relationship Specialty Start Date End Date Paulino Finley MD [address] [place] [address] PCP - General Emergency Medicine 09/11/21 documented as of this encounter
--- OUTSIDE RECORDS SUMMARY | 2024-08-28 12:49 | XMS_ITS | Encounter Summary ---
[place] [address] Care Team Providers Care Medical Concierge Name Role Phone Paulino Finley MD Primary Care Provider [phone] Encounter Details Date Type Department Care Team (Late st Contact Info) Description 08/24/2023 Telephone Hematology/Oncology at [address] [phone] Asuncion Valencia RN Social History [...] they didn't order the test. He uses [facility] in [facility]. He is also wondering if he [...] Received results of UA done today at [facility] and reviewed with Dr. Bhatti. UA showed: Neg Leukocytes. Large amount of blood. C&S is being done. Recommendations/Plan: Discussed with Dr. Bhatti. Would like patient to contact urologist for management. Patient is established with urology at [facility] ([place]). Dr. Bhatti feels that the hematuria is not likely to be related to the Darolutamide but will have patient hold this until his appt with Dr. Bhatti next 08/31. RN call to patient to review UA results. States that he continues to have visible blood in urine. Instructed on plan above: Hold Darolutamide until appt next week with Magy Contact urology at [facility] to make appt for evaluation. Mr. Bee agrees with plan above. Nursing to follow-up on results of C&S later this week and review with Dr. Bhatti. documented in this encounter Plan of Treatment Upcoming Encounters Date Type Department Care Team (Late st Contact Info) Description 09/18/2024 10:20 AM EST Office [place] [address] Sriram Contreras MD [facility] [address] 10/31/2024 1:30 PM EST Office Visit Hematology/Oncology at [address] [phone] Dmitry Bhatti MD [facility] DR HEMATOLOGY [place] [address] Ellen Mcrae APRN [facility] [place] [address] 10/31/2024 2:00 PM EST Infusion Hematology Oncology at [address] [phone] documented as of this encounter Procedures Procedure Name Priority Date/Time Associated Diagnosis Comments URINE CULTURE Routine 08/26/2023 8:10 AM EDT documented in this encounter Results * Urine culture (08/26/2023 8:10 AM EDT) Urine Culture gram positive yung Urine Other colony count <10,000 colonies/mL Historical Provider MICROBIOLOGY - ERICK NERAL ORDERABLES documented in this encounter Visit Diagnoses Not on filedocumented in this encounter Care Teams Medical Concierge Relationship Specialty Start Date End Date Paulino Finley MD [address] [place] [address] PCP - General Emergency Medicine 09/11/21 documented as of this encounter
--- OUTSIDE RECORDS SUMMARY | 2024-08-28 12:49 | XMS_ITS | Encounter Summary ---
Author Organization [facility] [place] [address] Care Team Providers Care Caterer'S Aide Name Role Phone Paulino Finley MD Primary Care Provider [phone] Encounter Details Date Type Department Care Team [...] 10:20 AM EST Office [place] [address] Sriram Contreras MD [facility] [place] [address] 10/31/2024 1:30 PM EST Office Visit Hematology/Oncology at [address] [phone] Dmitry Bhatti MD [facility] DR HEMATOLOGY [place] [address] Ellen Mcrae APRN [facility] [place] [address] 10/31/2024 2:00 PM EST Infusion Hematology Oncology at [address] [phone] documented as of this encounter Visit Diagnoses Not on filedocumented in this encounter Care Teams Caterer'S Aide Relationship Specialty Start Date End Date Paulino Finley MD [address] [place] [address] PCP - General Emergency Medicine 09/11/21 documented as of this encounter
--- OUTSIDE RECORDS SUMMARY | 2024-08-28 12:49 | XMS_ITS | Encounter Summary ---
Author Organization [facility] Address [facility] [place] [address] Care Team Providers Care Spud Driller Name Role Phone Paulino Finley MD Primary Care Provider [phone] Reason for Visit * Reason Comments Follow-up Throat is ok, no con cerns at this time. Encounter Details Date Type Department Care Team (Late st Contact Info) Description 09/13/2023 10:00 AM EST Office Visit [place] [address] Sriram Contreras MD [facility] [place] [address] Cancer of base of tongue Social History [...] the TelePack Unit and uploaded to the [employer]ly Helicopter Repairer. Findings Nasal cavity normal Nasopharynx normal Oropharynx S/p tongue base resection on the right, no recurrence or second primary Larynx S/p partial epiglottic resection, no recurrence, normal mobility Hypopharynx Normal, no second primary ASSESSMENT/RECOMMENDATIONS MAGY No second primary Follow up in 1 year or PRN I appreciate the opportunity to be involved in Mr. Bee's care. SRIRAM CONTRERAS MD 09/13/2023 documented in this encounter Plan of Treatment Upcoming Encounters Date Type Department Care Team (Late st Contact Info) Description 09/18/2024 10:20 AM EST Office Visit [place] [address] Sriram Contreras MD [facility] [place] [address] 10/31/2024 1:30 PM EST Office Visit Hematology/Oncology at [address] [phone] Dmitry Bhatti MD [facility] [place] [address] Ellen Mcrae APRN [facility] [place] [address] 10/31/2024 2:00 PM EST Infusion Hematology Oncology at [address] [phone] documented as of this encounter Visit Diagnoses Diagnosis 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
--- OUTSIDE RECORDS SUMMARY | 2024-08-28 12:49 | XMS_ITS | Encounter Summary ---
Author Organization [facility] [place] [address] Care Team Providers Care Depositing Machine Operator Name Role Phone Paulino Finley MD Primary Care Provider [phone] Encounter Details Date Type Department Care Team (Late st Contact Info) Description 11/02/2023 1:00 PM EST Office Visit Hematology/Oncology at [address] [phone] Dmitry Bhatti MD [facility] DR [place] [address] Ellen Mcrae APRN [facility] [place] [address] Prostate cancer metastatic to multiple sites; Encounter [...] in this encounter Progress Notes * Ellen Mcrae Darnell, LINE FIXER - 11/02/2023 1:00 PM EST Images from [...] on May 13. Pathology revealed prostatic adenocarcinoma [place] 5+4. Staging CT abdomen and pelvis and [...] here with his today. They live in [place]. Medications: Your Medications Accurate as of November [...] adenocarcinoma, involving 1 of 1 core. - [place] score 4 + 5 = 9 (grade group 5), tumor extent 1 mm (15% of core). - Perineural invasion is identified. C. PROSTATE, RIGHT MID LATERAL, NEEDLE CORE BIOPSY: - Prostatic adenocarcinoma, involving 1 of 1 core. - [place] score 5 + 4 = 9 (grade [...] 3 = 7 (grade group 3), 70% [place] pattern 4, tumor extent 6 mm (40% of core). - Cribriform [place] pattern 4 is present. I. PROSTATE, LEFT MID LATERAL, NEEDLE CORE BIOPSY: - Prostatic adenocarcinoma, involving 1 of 1 core. - [place] score 3 + 5 = 8 (grade group 4), tumor extent 4 mm (30% of core). J. PROSTATE, LEFT MID MEDIAL, NEEDLE CORE BIOPSY: - Prostatic adenocarcinoma, involving 1 of 1 core. - [place] score 4 + 5 = 9 (grade [...] Food and Drug Administration approved darolutamide (Nubeqa, [employer] tablets in combination with docetaxel for adult patients with metastatic hormone-sensitive prostate cancer (mHSPC). Efficacy was based on ARASENS ([id number]), a randomized, multicenter, double- blind, placebo-controlled clinical trial in 1306 patients with mHSPC. Patients were randomized to receive either darolutamide 600 mg orally twice daily plus docetaxel 75 mg/m2 intravenously administered every 3 weeks forup to 6 cycles or docetaxel plus placebo. All patients received a gonadotropin-releasing hormone analog concurrently or had a bilateral orchiectomy. The primary efficacy measure was overall survival (OS). Uryp-eh-dpvt progression was an additional efficacy measure. Median OS was not reached (NR) (95% CI: NR, NR) in the darolutamide plus docetaxelarm and 48.9 months (95% CI: 44.4, NR) in docetaxel plus placebo arm (HR 0.68; 95% CI: 0.57, 0.80; p<0.0001). Treatment with darolutamide and docetaxel resulted in a statistically significant delay in klpy-vc-aofe progression (HR 0.79; 95% CI: 0.66, 0.95; [...] and hypocalcemia. The recommended darolutamide dose for [facility] is 600 mg (two 300 mg tablets) [...] 10:20 AM EST Office Visit [place] [address] Sriram Contreras MD [facility] [place] [address] 10/31/2024 1:30 PM EST Office Visit Hematology/Oncology at [address] [phone] Dmitry Bhatti MD [facility] DR [place] [address] Ellen Mcrae APRN [facility] [place] [address] 10/31/2024 2:00 PM EST Infusion Hematology Oncology at [address] [phone] documented as of this encounter Visit Diagnoses Diagnosis Prostate cancer metastatic to multiple sites Malignant neoplasm of prostate Encounter for chemotherapy management Fatigue, unspecified type documented in this encounter Care Teams Depositing Machine Operator Relationship Specialty Start Date End Date Paulino Finley MD [address] [place] [address] PCP - General Emergency Medicine 09/11/21 documented as of this encounter
--- OUTSIDE RECORDS SUMMARY | 2024-08-28 12:49 | XMS_ITS | Encounter Summary ---
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 He has Medicare and BCBS for insurance. He did not identify any concerns re finances orinsurance. Advance Directives: Jose has not completed his advance directive. He does have the information for this. He is meeting with an claims attorney to get his affairs in order [...] assessment Supportive Counseling Plan: Informed pt of CERTIFIED TECHNICIAN SPECIALIST availability and contact information. Will follow to assess/address psychosocial needs. JONY Blount, COOLER OPERATOR, OSW-C Cottage Supervisor [facility] documented in this encounter Plan of Treatment Upcoming Encounters Date Type Department Care Team (Late st Contact Info) Description 09/18/2024 10:20 AM EST Office Visit [place] [address] Sriram Contreras MD [facility] [place] [address] 10/31/2024 1:30 PM EST Office Visit Hematology/Oncology at [address] [phone] Dmitry Bhatti MD [facility] DR HEMATOLOGY [place] [address] Ellen Mcrae APRN [facility] [place] [address] 10/31/2024 2:00 PM EST Infusion Hematology Oncology at [address] [phone] documented as of this encounter Visit Diagnoses Not on filedocumented in this encounter Care Teams Turnaround Planner Relationship Specialty Start Date End Date Paulino Finley MD [address] [place] [address] PCP - General Emergency Medicine 09/11/21 documented as of this encounter
--- OUTSIDE RECORDS SUMMARY | 2024-08-28 12:49 | XMS_ITS | Encounter Summary ---
Author Organization [facility] [place] [address] Care Team Providers Care Field Investigator Name Role Phone Paulino Finley MD Primary Care Provider [phone] Encounter Details Date Type Department Care Team [...] 10:20 AM EST Office Visit [place] [address] Sriram Contreras MD [facility] [place] [address] 10/31/2024 1:30 PM EST Office Visit Hematology/Oncology at [address] [phone] Dmitry Bhatti MD [facility] DR [place] [address] Ellen Mcrae APRN [facility] [place] [address] 10/31/2024 2:00 PM EST Infusion Hematology Oncology at [address] [phone] documented as of this encounter Visit Diagnoses Not on filedocumented in this encounter Care Teams Field Investigator Relationship Specialty Start Date End Date Paulino Finley MD [address] [place] [address] PCP - General Emergency Medicine 09/11/21 documented as of this encounter
--- OUTSIDE RECORDS SUMMARY | 2024-08-28 12:49 | XMS_ITS | Encounter Summary ---
Author Organization [facility] [place] [address] Care Team Providers Care Regional Airline Pilot Name Role Phone Paulino Finley MD Primary Care Provider [phone] Encounter Details Date Type Department Care Team (Late st Contact Info) Description 12/15/2023 Ancillary Procedure Radiology Library at [facility] [place] [address] Dmitry Bhatti MD [facility] [place] [address] Social History Tobacco Use Types Packs/Day Years [...] 10:20 AM EST Office Visit Otolaryngology at [facility] [place] [address] Sriram Contreras MD [facility] [address] 10/31/2024 1:30 PM EST Office Visit Hematology/Oncology at [address] [phone] Dmitry Bhatti MD [facility] DR [place] [address] Ellen Mcrae APRN [facility] [place] [address] 10/31/2024 2:00 PM EST Infusion Hematology Oncology at [address] [phone] documented as of this encounter Procedures Procedure Name Priority Date/Time Associated Diagnosis Comments FILM LIBRARY STORAGE ONLY CT CHEST ABDOMEN PELVIS Routine 12/15/2023 12:00 AM EST documented in this encounter Results * Film Library- Storage Only CT Chest Abdomen Pelvis (12/15/2023 12:00 AM EST) Narrative [facility] - 12/21/2023 10:45 AM EST This exam is auto-finalizing. It's purpose is for storage only. Dmitry Bhatti MD IMG FILM LIBRARY ORD ERABLES Performing Organization Address City/State/[facility] Co de Phone Number [place], [place] documented in this encounter Visit Diagnoses Not on filedocumented in this encounter Care Teams Regional Airline Pilot Relationship Specialty Start Date End Date Paulino Finley MD [address] [place] [address] PCP - General Emergency Medicine 09/11/21 documented as of this encounter
--- OUTSIDE RECORDS SUMMARY | 2024-08-28 12:49 | XMS_ITS | Encounter Summary ---
Author Organization [facility] [place] [address] Care Team Providers Care Forge Shop Machine Repairer Name Role Phone Paulino Finley MD Primary Care Provider [phone] Encounter Details Date Type Department Care Team (Late st Contact Info) Description 09/21/2023 11:30 AM EST Office Visit Hematology/Oncology at [address] [phone] Ellen Mcrae APRN [facility] [place] [address] Prostate cancer metastatic to multiple sites; Hematuria, [...] here with his today. They live in [place]. Medications: Your Medications Accurate as of September [...] adenocarcinoma, involving 1 of 1 core. - [place] score 4 + 5 = 9 (grade group 5), tumor extent 1 mm (15% of core). - Perineural invasion is identified. C. PROSTATE, RIGHT MID LATERAL, NEEDLE CORE BIOPSY: - Prostatic adenocarcinoma, involving 1 of 1 core. - [place] score 5 + 4 = 9 (grade group 5), tumor extent 10 mm (80% of core). D. PROSTATE, RIGHT MID MEDIAL, NEEDLE CORE BIOPSY: - Prostatic adenocarcinoma, involving 1 of 1 core. - [place] score 4 + 5 = 9 (grade [...] adenocarcinoma, involving 1 of 1 core. - [place] score 4 + 5 = 9 (grade [...] Food and Drug Administration approved darolutamide (Nubeqa, [employer] tablets in combination with docetaxel for adult patients with metastatic hormone-sensitive prostate cancer (mHSPC). Efficacy was based on ARASENS ([id number]), a randomized, multicenter, double- blind, placebo-controlled clinical trial in 1306 patients with mHSPC. Patients were randomized to receive either darolutamide 600 mg orally twice daily plus docetaxel 75 mg/m2 intravenously administered every 3 weeks forup to 6 cycles or docetaxel plus placebo. All patients received a gonadotropin-releasing hormone analog concurrently or had a bilateral orchiectomy. The primary efficacy measure was overall survival (OS). Gmpx-ow-hfwe progression was an additional efficacy measure. Median OS was not reached (NR) (95% CI: NR, NR) in the darolutamide plus docetaxelarm and 48.9 months (95% CI: 44.4, NR) in docetaxel plus placebo arm (HR 0.68; 95% CI: 0.57, 0.80; p<0.0001). Treatment with darolutamide and docetaxel resulted in a statistically significant delay in bcib-xx-xgpk progression (HR 0.79; 95% CI: 0.66, 0.95; [...] hypocalcemia. The recommended darolutamide dose for [facility] is 600 mg (two 300 mg [...] 10:20 AM EST Office [place] [address] Sriram Contreras MD [facility] [address] 10/31/2024 1:30 PM EST Office Visit Hematology/Oncology at [address] [phone] Dmitry Bhatti MD [facility] HEMATOLOGY [place] [address] Ellen Mcrae APRN [facility] [place] [address] 10/31/2024 2:00 PM EST Infusion Hematology Oncology at [address] [phone] documented as of this encounter Visit Diagnoses Diagnosis Prostate cancer metastatic to multiple sites Malignant neoplasm of prostate Hematuria, unspecified type documented in this encounter Care Teams Forge Shop Machine Repairer Relationship Specialty Start Date End Date Paulino Finley MD [address] [place] [address] PCP - General Emergency Medicine 09/11/21 documented as of this encounter
--- OUTSIDE RECORDS SUMMARY | 2024-08-28 12:49 | XMS_ITS | Encounter Summary ---
[place] [address] Care Team Providers Care Boiler Helper Name Role Phone Paulino Finley MD Primary Care Provider [phone] Encounter Details Date Type Department Care Team (Late st Contact Info) Description 11/26/2023 Telephone [place]ematology [place] [phone] [place] Social History Tobacco Use Types [...] PM EST Procedure Prior Authorization Procedure/Cpt: Cpt 90644, 45181 Rationale: C61 Health Plan: [facility] Authorizing Vendor: Service Order/ Authorization #: Effective Date: 11/26/2023 - 01/24/2024 Status: Approved Rendering Facility: [facility] [id number] [place] not required documented in this encounter Plan of Treatment Upcoming Encounters Date Type Department Care Team (Late st Contact Info) Description 09/18/2024 10:20 AM EST Office [place] [address] Sriram Contreras MD [facility] [place] [address] 10/31/2024 1:30 PM EST Office Visit Hematology/Oncology at [address] [phone] Dmitry Bhatti MD [facility] DR [place]EMATOLOGY [place] [address] Ellen Mcrae APRN [facility] [place] [address] 10/31/2024 2:00 PM EST Infusion Hematology Oncology at [address] [phone] documented as of this encounter Visit Diagnoses Not on filedocumented in this encounter Care Teams Boiler Helper Relationship Specialty Start Date End Date Paulino Finley MD [address] [place] [address] PCP - General Emergency Medicine 09/11/21 documented as of this encounter
--- OUTSIDE RECORDS SUMMARY | 2024-08-28 12:49 | XMS_ITS | Encounter Summary ---
Author Organization [facility] [place] [address] Care Team Providers Care Catering Sous Chef Name Role Phone Paulino Finley MD Primary Care Provider [phone] Encounter Details Date Type Department Care Team [...] 10:20 AM EST Office Visit [place] [address] Sriram Contreras MD [facility] [place] [address] 10/31/2024 1:30 PM EST Office Visit Hematology/Oncology at [address] [phone] Dmitry Bhatti MD [facility] DR HEMATOLOGY [place] [address] Ellen Mcrae APRN [facility] [place] [address] 10/31/2024 2:00 PM EST Infusion Hematology Oncology at [address] [phone] documented as of this encounter Visit Diagnoses Not on filedocumented in this encounter Care Teams Catering Sous Chef Relationship Specialty Start Date End Date Paulino Finley MD [address] [place] [address] PCP - General Emergency Medicine 09/11/21 documented as of this encounter
--- OUTSIDE RECORDS SUMMARY | 2024-08-28 12:49 | XMS_ITS | Encounter Summary ---
Author Organization [facility] Address [facility] [place] [address] Care Team Providers Care Lamination Inspector Name Role Phone Paulino Finley MD Primary Care Provider [phone] Encounter Details Date Type Department Care Team (Late st Contact Info) Description 11/23/2023 1:00 PM EST Office Visit Hematology/Oncology at [address] [phone] Dmitry Bhatti MD [facility] DR [place] [address] Ellen Mcrae APRN [facility] [place] [address] Prostate cancer metastatic to multiple sites (Primary [...] darolutamide and Taxotere chemotherapy. Interval history 11/23/22 Joes is in clinic for follow-up on metastatic [...] here with his today. They live in [place]. Medications: Your Medications Accurate as of November [...] adenocarcinoma, involving 1 of 1 core. - [place] score 4 + 5 = 9 (grade [...] adenocarcinoma, involving 1 of 1 core. - [place] score 4 + 5 = 9 (grade group 5), tumor extent 9 mm (80% of core). E. PROSTATE, RIGHT APEX LATERAL, NEEDLE CORE BIOPSY: - Prostatic adenocarcinoma, involving 1 of 1 core. - [place] score 5 + 4 = 9 (grade group 5), tumor extent 16 mm (100% of core). - Perineural invasion is identified. F. PROSTATE, RIGHT APEX MEDIAL, NEEDLE CORE BIOPSY: - Prostatic adenocarcinoma, involving 1 of 1 core. - [place] score 5 + 4 = 9 (grade group 5), tumor extent 15 mm (95% of core). - Perineural invasion is identified. G. PROSTATE, LEFT BASE LATERAL, NEEDLE CORE BIOPSY: - Atypical small acinar proliferation (LOLITA), highly suspicious for minute focus (0.1 mm) of prostatic adenocarcinoma. H. PROSTATE, LEFT BASE MEDIAL, NEEDLE CORE BIOPSY: - Prostatic adenocarcinoma, involving 1 of 1 core. - [place] score 4 + 3 = 7 (grade group 3), 70% [place] pattern 4, tumor extent 6 mm (40% [...] adenocarcinoma, involving 1 of 1 core. - [place] score 4 + 5 = 9 (grade group 5), tumor extent 2 mm (15% of core). K. PROSTATE, LEFT APEX LATERAL, NEEDLE CORE BIOPSY: - Benign prostatic tissue. L. PROSTATE, LEFT APEX MEDIAL, NEEDLE CORE BIOPSY: - Prostatic adenocarcinoma, involving 1 of 1 core. - [place] score 5 + 4 = 9 (grade [...] Food and Drug Administration approved darolutamide (Nubeqa, [employer] tablets in combination with docetaxel for adult patients with metastatic hormone-sensitive prostate cancer (mHSPC). Efficacy was based on ARASENS ([id number]), a randomized, multicenter, double- blind, placebo-controlled clinical trial in 1306 patients with mHSPC. Patients were randomized to receive either darolutamide 600 mg orally twice daily plus docetaxel 75 mg/m2 intravenously administered every 3 weeks forup to 6 cycles or docetaxel plus placebo. All patients received a gonadotropin-releasing hormone analog concurrently or had a bilateral orchiectomy. The primary efficacy measure was overall survival (OS). Ullu-mr-rjeq progression was an additional efficacy measure. Median OS was not reached (NR) (95% CI: NR, NR) in the darolutamide plus docetaxelarm and 48.9 months (95% CI: 44.4, NR) in docetaxel plus placebo arm (HR 0.68; 95% CI: 0.57, 0.80; p<0.0001). Treatment with darolutamide and docetaxel resulted in a statistically significant delay in fycf-ar-nply progression (HR 0.79; 95% CI: 0.66, 0.95; [...] 10:20 AM EST Office [place] [address] Sriram Contreras MD [facility] [place] [address] 10/31/2024 1:30 PM EST Office Visit Hematology/Oncology at [address] [phone] Dmitry Bhatti MD [facility] [place] [address] Ellen Mcrae APRN [facility] DR [place] [address] 10/31/2024 2:00 PM EST Infusion Hematology Oncology at [address] [phone] documented as of this encounter Visit Diagnoses Diagnosis Prostate cancer metastatic to multiple sites- Primary Malignant neoplasm of prostate Encounter for chemotherapy management Malignant neoplasm of prostate metastatic to bone Malignant neoplasm of prostate Fatigue, unspecified type Androgen deprivation therapy Encounter for therapeutic drug monitoring documented in this encounter Care Teams Lamination Inspector Relationship Specialty Start Date End Date Paulino Finley MD [address] [place] [address] PCP - General Emergency Medicine 09/11/21 documented as of this encounter
--- OUTSIDE RECORDS SUMMARY | 2024-08-28 12:49 | XMS_ITS | Encounter Summary ---
[place] [address] Care Team Providers Care Fishing Floats Assembler Name Role Phone Paulino Finley MD Primary Care Provider [phone] Reason for Visit * Reason Onset Date Comments Follow-up 08/16/2023 Encounter Details Date Type Department Care Team (Late st Contact Info) Description 08/16/2023 Telephone Hematology/Oncology at [address] [phone] Asuncion Valencia RN Follow-up Social [...] our office if his symptoms return, call [facility] ([phone]) and ask to speak with the provider section cutter if it happens to be the evening [...] achy and having diarrhea and stomach pain. electronic tester Note Diagnosis: Metastatic Prostate CA Treatment: C1D1 [...] and fluids without issue. Nausea- None Dizziness/lightheaded: [place] some lightheadedness this weekend and today. Changing positions slowly. [place] body aches over the weekend, this is [...] 10:20 AM EST Office [place] [address] Sriram Contreras MD [facility] [place] [address] 10/31/2024 1:30 PM EST Office Visit Hematology/Oncology at [address] [phone] Dmitry Bhatti MD [facility] HEMATOLOGY [place] [address] Ellen Mcrae APRN [facility] [place] [address] 10/31/2024 2:00 PM EST Infusion Hematology Oncology at [address] [phone] documented as of this encounter Visit Diagnoses Not on filedocumented in this encounter Care Teams Fishing Floats Assembler Relationship Specialty Start Date End Date Paulino Finley MD [address] [place] [address] PCP - General Emergency Medicine 09/11/21 documented as of this encounter
--- OUTSIDE RECORDS SUMMARY | 2024-08-28 12:49 | XMS_ITS | Encounter Summary ---
Author Organization [facility] [place] [address] Care Team Providers Care Gang Tailer Name Role Phone Paulino Finley MD Primary Care Provider [phone] Encounter Details Date Type Department Care Team [...] 10:20 AM EST Office Visit [place] [address] Sriram Contreras MD [facility] [place] [address] 10/31/2024 1:30 PM EST Office Visit Hematology/Oncology at [address] [phone] Dimtry Bhatti MD [facility] DR HEMATOLOGY [place] [address] Ellen Mcrae APRN [facility] [place] [address] 10/31/2024 2:00 PM EST Infusion Hematology Oncology at [address] [phone] documented as of this encounter Visit Diagnoses Not on filedocumented in this encounter Care Teams Gang Tailer Relationship Specialty Start Date End Date Paulino Finley MD [address] [place] [address] PCP - General Emergency Medicine 09/11/21 documented as of this encounter
--- OUTSIDE RECORDS SUMMARY | 2024-08-28 12:49 | XMS_ITS | Encounter Summary ---
[place] [address] Care Team Providers Care Legislative Aide Name Role Phone Paulino Finley MD Primary Care Provider [phone] Encounter Details Date Type Department Care Team (Latest Contact Info) Description 12/02/2023 10:00 AM EST Clinical Support Audiology at [address] [phone] Ester Cardenas Asymmetrical sensorineural hearing loss Social [...] and domes. Removed debris from microphones and adjuster arbitrator port. Replaced adjuster arbitrator wire, left. Following the above measures, listening check of the hearing aids then found them to be in good working order. When speaking to patient left hearing aid started crackling. Brought hearing aid back and replaced the adjuster arbitrator. Crackling stopped but again started back up [...] R Casing Color White White Serial Number [id number] Battery Size Rechargeable Rechargeable Invoice number/date [id number] 08/24/19 [id number] 08/24/19 Other Comments PROGRAM/SETTINGS Fitting Algorithm DSL [...] HELENA / Dome specifics Size 03 M adjuster arbitrator small vented dome Size 03 M adjuster arbitrator small vented dome Impression Date Invoice number/date Other Comments ACCESSORIES Make/Model (color) Serial Number Warranty date Invoice number/date Settings Other Comments documented in this encounter Plan of Treatment Upcoming Encounters Date Type Department Care Team (Late st Contact Info) Description 09/18/2024 10:20 AM EST Office Visit [place] [address] Sriram Contreras MD [facility] [place] [address] 10/31/2024 1:30 PM EST Office Visit Hematology/Oncology at [address] [phone] Dmitry Bhatti MD [facility] [place] [address] Ellen Mcrae APRN [facility] [place] [address] 10/31/2024 2:00 PM EST Infusion Hematology Oncology at [address] [phone] documented as of this encounter Visit Diagnoses Diagnosis Asymmetrical sensorineural hearing loss Sensorineural hearing loss, asymmetrical documented in this encounter Care Teams Legislative Aide Relationship Specialty Start Date End Date Paulino Finley MD [address] [place] [address] PCP - General Emergency Medicine 09/11/21 documented as of this encounter
--- OUTSIDE RECORDS SUMMARY | 2024-08-28 12:49 | XMS_ITS | Encounter Summary ---
Author Organization [facility] [place] [address] Care Team Providers Care Technical Operations Specialist Name Role Phone Paulino Finley MD Primary Care Provider [phone] Encounter Details Date Type Department Care Team (Late st Contact Info) Description 09/03/2023 Orders Only Hematology and Oncology at [place] [phone] Dina Schrader APRN [facility] [place] [address] COVID-19 Social History Tobacco Use Types Packs/Day [...] 10:20 AM EST Office [place] [phone] Sriram Contreras MD [facility] [place] [address] 10/31/2024 1:30 PM EST Office Visit Hematology/Oncology at [address] [phone] Dmitry Bhatti MD [facility] DR [place] [address] Ellen Mcrae APRN [facility] [place] [address] 10/31/2024 2:00 PM EST Infusion Hematology Oncology at [address] [phone] documented as of this encounter Visit Diagnoses Diagnosis COVID-19 documented in this encounter Care Teams Technical Operations Specialist Relationship Specialty Start Date End Date Paulino Finley MD [address] [place] [address] PCP - General Emergency Medicine 09/11/21 documented as of this encounter
--- OUTSIDE RECORDS SUMMARY | 2024-08-28 12:49 | XMS_ITS | Encounter Summary ---
Author Organization [facility] [place] [address] Care Team Providers Care Girl Friday Name Role Phone Paulino Finley MD Primary Care Provider [phone] Encounter Details Date Type Department Care Team (Late st Contact Info) Description 10/12/2023 9:00 AM EST Office Visit Hematology/Oncology at [address] [phone] Dmitry Bhatti MD [facility] [place] [address] Ellen Mcrae APRN [facility] [place] [place] [address] Prostate cancer metastatic to multiple sites; Hematuria, [...] on May 13. Pathology revealed prostatic adenocarcinoma [place] 5+4. Staging CT abdomen and pelvis and [...] here with his today. They live in [place]. Medications: Your Medications Accurate as of October [...] adenocarcinoma, involving 1 of 1 core. - [place] score 4 + 5 = 9 (grade group 5), tumor extent 1 mm (15% of core). - Perineural invasion is identified. C. PROSTATE, RIGHT MID LATERAL, NEEDLE CORE BIOPSY: - Prostatic adenocarcinoma, involving 1 of 1 core. - [place] score 5 + 4 = 9 (grade [...] adenocarcinoma, involving 1 of 1 core. - [place] score 5 + 4 = 9 (grade group 5), tumor extent 16 mm (100% of core). - Perineural invasion is identified. F. PROSTATE, RIGHT APEX MEDIAL, NEEDLE CORE BIOPSY: - Prostatic adenocarcinoma, involving 1 of 1 core. - [place] score 5 + 4 = 9 (grade [...] adenocarcinoma, involving 1 of 1 core. - [place] score 3 + 5 = 8 (grade group 4), tumor extent 4 mm (30% of core). J. PROSTATE, LEFT MID MEDIAL, NEEDLE CORE BIOPSY: - Prostatic adenocarcinoma, involving 1 of 1 core. - [place] score 4 + 5 = 9 (grade group 5), tumor extent 2 mm (15% of core). K. PROSTATE, LEFT APEX LATERAL, NEEDLE CORE BIOPSY: - Benign prostatic tissue. L. PROSTATE, LEFT APEX MEDIAL, NEEDLE CORE BIOPSY: - Prostatic adenocarcinoma, involving 1 of 1 core. - [place] score 5 + 4 = 9 (grade [...] Food and Drug Administration approved darolutamide (Nubeqa, JUNTA.CL.) tablets in combination with docetaxel for adult patients with metastatic hormone-sensitive prostate cancer (mHSPC). Efficacy was based on ARASENS ([id number]), a randomized, multicenter, double- blind, placebo-controlled clinical trial in 1306 patients with mHSPC. Patients were randomized to receive either darolutamide 600 mg orally twice daily plus docetaxel 75 mg/m2 intravenously administered every 3 weeks forup to 6 cycles or docetaxel plus placebo. All patients received a gonadotropin-releasing hormone analog concurrently or had a bilateral orchiectomy. The primary efficacy measure was overall survival (OS). Lpeu-li-skhu progression was an additional efficacy measure. Median OS was not reached (NR) (95% CI: NR, NR) in the darolutamide plus docetaxelarm and 48.9 months (95% CI: 44.4, NR) in docetaxel plus placebo arm (HR 0.68; 95% CI: 0.57, 0.80; p<0.0001). Treatment with darolutamide and docetaxel resulted in a statistically significant delay in mmgn-gc-xfax progression (HR 0.79; 95% CI: 0.66, 0.95; [...] and hypocalcemia. The recommended darolutamide dose for [facility] is 600 mg (two 300 [...] 10:20 AM EST Office [place] [address] Sriram Contreras MD [facility] [place] [address] 10/31/2024 1:30 PM EST Office Visit Hematology/Oncology at [address] [phone] Dmitry Bhatti MD [facility] [place] [address] Ellen Mcrae APRN [facility] [place] [place] [address] 10/31/2024 2:00 PM EST Infusion Hematology Oncology at [address] [phone] documented as of this encounter Visit Diagnoses Diagnosis Prostate cancer metastatic to multiple sites Malignant neoplasm of prostate Hematuria, unspecified type Androgen deprivation therapy Encounter for therapeutic drug monitoring Encounter for chemotherapy management documented in this encounter Care Teams Girl Friday Relationship Specialty Start Date End Date Paulino Finley MD [address] [place] [address] PCP - General Emergency Medicine 09/11/21 documented as of this encounter
--- OUTSIDE RECORDS SUMMARY | 2024-08-28 12:49 | XMS_ITS | Encounter Summary ---
[place] [address] Care Team Providers Care Filter Filler Name Role Phone Paulino Finley MD Primary Care Provider [phone] Reason for Visit * Reason Onset Date Comments Eye Problem 11/19/2023 Encounter Details Date Type Department Care Team (Late st Contact Info) Description 11/19/2023 Telephone Hematology/Oncology at [address] [phone] Shad Hernandez RN Eye Problem [...] who reports he went to PCP in [place] and believe he hasstye and advised warm [...] make an appointment with his PCP in [place] for today, hopefully. Please call him back and answer any concerns he has about this. [phone] documented in this encounter Plan of Treatment Upcoming Encounters Date Type Department Care Team (Late st Contact Info) Description 09/18/2024 10:20 AM EST Office Visit [place] [address] Sriram Contreras MD [facility] [place] [address] 10/31/2024 1:30 PM EST Office Visit Hematology/Oncology at [address] [phone] Dmitry Bhatti MD [facility] DR HEMATOLOGY [place] [address] Ellen Mcrae APRN [facility] [place] [address] 10/31/2024 2:00 PM EST Infusion Hematology Oncology at [address] [phone] documented as of this encounter Visit Diagnoses Not on filedocumented in this encounter Care Teams Filter Filler Relationship Specialty Start Date End Date Paulino Finley MD [address] [place] [address] PCP - General Emergency Medicine 09/11/21 documented as of this encounter
--- OUTSIDE RECORDS SUMMARY | 2024-08-28 12:49 | XMS_ITS | Encounter Summary ---
Author [place] [address] Care Team Providers Care Chain Hooker Name Role Phone Paulino Finley MD Primary Care Provider [phone] Reason for Visit * Reason Comments Chemotherapy [...] DOCETAXEL [id number] NEULASTA ONPRO Dmitry Bhatti MD [address] [place] [address] DR H[place]ATOLOGY [place] [address] Dmitry Bhatti MD [address] [place] [address] DR HEMATOLOGY [place] [address] Referral ID Status Reason Start Date Expiration Date Visits Re quested Visits Authorized [id number] Closed 07/08/2023 07/07/2024 99 99 Encounter Details Date Type Department Care Team (Late st Contact Info) Description 08/31/2023 11:30 AM EDT Infusion Hematology Oncology at [address] [phone] Prostate cancer metastatic to multiple sites; Malignant [...] 10:20 AM EST Office Visit [place] [address] Sriram Contreras MD [facility] [place] [address] 10/31/2024 1:30 PM EST Office Visit Hematology/Oncology at [address] [phone] Dmitry Bhatti MD [facility] DR HEMATOLOGY [place] [address] Ellen Mcrae APRN [facility] [place] [address] 10/31/2024 2:00 PM EST Infusion Hematology Oncology at [address] [phone] documented as of this encounter [...] 10 mg, Intravenous, ONCE, 1 dose, On e 08/31/23 at 1245, Administer 60 minutes prior to [...] mL/hr documented in this encounter Care Teams Chain Hooker Relationship Specialty Start Date End Date Paulino Finley MD [address] [place] [address] PCP - General Emergency Medicine 09/11/21 documented as of this encounter
--- OUTSIDE RECORDS SUMMARY | 2024-08-28 12:49 | XMS_ITS | Encounter Summary ---
Author Organization [facility] [place] [address] Care Team Providers Care Refractive Surgeon Name Role Phone Paulino Finley MD Primary Care Provider [phone] Encounter Details Date Type Department Care Team (Late st Contact Info) Description 09/23/2023 Notes Only Hematology/Oncology at [address] [phone] Ellen Mcrae APRN [facility] [place] [address] Social History Tobacco Use Types Packs/Day Years [...] 10:20 AM EST Office Visit [place] [address] Sriram Contreras MD [facility] [place] [address] 10/31/2024 1:30 PM EST Office Visit Hematology/Oncology at [address] [phone] Dmitry Bhatti MD [facility] DR [place] [address] Ellen Mcrae APRN [facility] [place] [address] 10/31/2024 2:00 PM EST Infusion Hematology Oncology at [address] [phone] documented as of this encounter Visit Diagnoses Not on filedocumented in this encounter Care Teams Refractive Surgeon Relationship Specialty Start Date End Date Paulino Finley MD [address] [place] [address] PCP - General Emergency Medicine 09/11/21 documented as of this encounter
--- OUTSIDE RECORDS SUMMARY | 2024-08-28 12:49 | XMS_ITS | Encounter Summary ---
Author Organization [facility] [place] [address] Care Team Providers Care Link Trainer Teacher Name Role Phone Paulino Finley MD Primary Care Provider [phone] Encounter Details Date Type Department Care Team [...] 10:20 AM EST Office [place] [address] Sriram Contreras MD [facility] [place] [address] 10/31/2024 1:30 PM EST Office Visit Hematology/Oncology at [address] [phone] Dmitry Bhatti MD [facility] DR HEMATOLOGY [place] [address] Ellen Mcrae APRN [facility] [place] [address] 10/31/2024 2:00 PM EST Infusion Hematology Oncology at [address] [phone] documented as of this encounter Visit Diagnoses Not on filedocumented in this encounter Care Teams Link Trainer Teacher Relationship Specialty Start Date End Date Paulino Finley MD [address] [place] [address] PCP - General Emergency Medicine 09/11/21 documented as of this encounter
--- OUTSIDE RECORDS SUMMARY | 2024-08-28 12:49 | XMS_ITS | Encounter Summary ---
Author Organization [facility] [place] [address] Care Team Providers Care Principal System Software Engineer Name Role Phone Paulino Finley MD Primary Care Provider [phone] Encounter Details Date Type Department Care Team [...] 10:20 AM EST Office [place] [address] Sriram Contreras MD [facility] [place] [address] 10/31/2024 1:30 PM EST Office Visit Hematology/Oncology at [address] [phone] Dmitry Bhatti MD [facility] DR HEMATOLOGY [place] [address] Ellen Mcrae APRN [facility] [address] 10/31/2024 2:00 PM EST Infusion Hematology Oncology at [address] [phone] documented as of this encounter Visit Diagnoses Not on filedocumented in this encounter Care Teams Principal System Software Engineer Relationship Specialty Start Date End Date Paulino Finley MD [address] [place] [address] PCP - General Emergency Medicine 09/11/21 documented as of this encounter
--- OUTSIDE RECORDS SUMMARY | 2024-08-28 12:49 | XMS_ITS | Encounter Summary ---
Author Organization [facility] [place] [address] Care Team Providers Care Associate Relations Specialist Name Role Phone Paulino Finley MD Primary Care Provider [phone] Encounter Details Date Type Department Care Team (Late st Contact Info) Description 01/03/2024 Orders Only Hematology [place] [address] Kayley Lynne, [facility] DR [place] [address] Prostate cancer metastatic to multiple sites Social [...] 10:20 AM EST Office Visit [place] [address] Sriram Contreras MD [facility] [place] [address] 10/31/2024 1:30 PM EST Office Visit Hematology/Oncology at [address] [phone] Dmitry Bhatti MD [facility] DR [place] [address] Ellen Mcrae APRN [facility] [place] [address] 10/31/2024 2:00 PM EST Infusion Hematology Oncology at [address] [phone] documented as of this encounter Visit Diagnoses Diagnosis Prostate cancer metastatic to multiple sites Malignant neoplasm of prostate documented in this encounter Care Teams Associate Relations Specialist Relationship Specialty Start Date End Date Paulino Finley MD [address] [place] [address] PCP - General Emergency Medicine 09/11/21 documented as of this encounter
--- OUTSIDE RECORDS SUMMARY | 2024-08-28 12:49 | XMS_ITS | Encounter Summary ---
Author Organization [facility] [place] [address] Care Team Providers Care Button Tacker Name Role Phone Paulino Finley MD Primary Care Provider [phone] Encounter Details Date Type Department Care Team (Late st Contact Info) Description 12/15/2023 12:05 AM EST Ancillary Procedure Radiology Library at [facility] [place] [place] [phone] Dmitry Bhatti MD [facility] HEMATOLOGY [place] [address] Social History Tobacco Use Types Packs/Day Years [...] 10:20 AM EST Office Visit Otolaryngology at [facility] [place] [place] [phone] Sriram Contreras MD [facility] [place] [address] 10/31/2024 1:30 PM EST Office Visit Hematology/Oncology at [address] [phone] Dmitry Bhatti MD [facility] DR HEMATOLOGY [place] [address] Ellen Mcrae APRN [facility] [place] [address] 10/31/2024 2:00 PM EST Infusion Hematology Oncology at [address] [phone] documented as of this encounter Procedures Procedure Name Priority Date/Time Associated Diagnosis Comments FILM LIBRARY STORAGE ONLY NUCLEAR MEDICINE Routine 12/15/2023 12:05 AM EST documented in this encounter Results * Film Library- Storage Only nuclear medicine (12/15/2023 12:05 AM EST) Narrative [facility] [place] - 12/21/2023 10:46 AM EST This exam is auto-finalizing. It's purpose is for storage only. Dmitry Bhatti MD IMG FILM LIBRARY ORD ERABLES Performing Organization Address City/State/[facility] Co de Phone Number [place], [place] documented in this encounter Visit Diagnoses Not on filedocumented in this encounter Care Teams Button Tacker Relationship Specialty Start Date End Date Paulino Finley MD [address] [place] [address] PCP - General Emergency Medicine 09/11/21 documented as of this encounter
--- OUTSIDE RECORDS SUMMARY | 2024-08-28 12:49 | XMS_ITS | Encounter Summary ---
[place] [address] Care Team Providers Care Patient Safety Coordinator Name Role Phone Paulino Finley MD Primary Care Provider [phone] Reason for Visit * Reason Onset Date Comments Follow-up 08/11/2023 S/p first chemo Encounter Details Date Type Department Care Team (Late st Contact Info) Description 08/11/2023 Telephone Hematology/Oncology at [address] [phone] Shad Hernandez RN Follow-up (S/p first chemo [...] Miscellaneous Notes * Telephone Encounter - Shad Heranndez RN - 08/11/2023 10:04 AM EDT Post [...] aware of when to remove. Reinforced to patient/care-car cooper to call facility 31/05 with any new/worsening [...] 10:20 AM EST Office [place] [address] Sriram Cnotreras MD [facility] [place] [address] 10/31/2024 1:30 PM EST Office Visit Hematology/Oncology at [address] [phone] Dmitry Bhatti MD [facility] [place] [address] Ellen Mcrae APRN [facility] [place] [address] 10/31/2024 2:00 PM EST Infusion Hematology Oncology at [address] [phone] documented as of this encounter Visit Diagnoses Not on filedocumented in this encounter Care Teams Patient Safety Coordinator Relationship Specialty Start Date End Date Paulino Finley MD [address] [place] [address] PCP - General Emergency Medicine 09/11/21 documented as of this encounter
--- OUTSIDE RECORDS SUMMARY | 2024-08-28 12:49 | XMS_ITS | Encounter Summary ---
Author Organization [facility] [place] [address] Care Team Providers Care Maitre D Name Role Phone Paulino Finley MD Primary Care Provider [phone] Encounter Details Date Type Department Care Team [...] 10:20 AM EST Office [place] [address] Sriram Contreras MD [facility] [place] [address] 10/31/2024 1:30 PM EST Office Visit Hematology/Oncology at [address] [address] Dmitry Bhatti MD [facility] [place] [address] Ellen Mcrae APRN [facility] [place] [address] 10/31/2024 2:00 PM EST Infusion Hematology Oncology at [address] [phone] documented as of this encounter Visit Diagnoses Not on filedocumented in this encounter Care Teams Maitre D Relationship Specialty Start Date End Date Paulino Finley MD [address] [place] [address] PCP - General Emergency Medicine 09/11/21 documented as of this encounter
--- OUTSIDE RECORDS SUMMARY | 2024-08-28 12:49 | XMS_ITS | Encounter Summary ---
[place] [address] Care Team Providers Care Underlay Stitcher Name Role Phone Paulino Finley MD Primary Care Provider [phone] Reason for Visit * Reason Onset Date Comments Diarrhea 12/03/2023 Follow-up 12/03/2023 diarrhea Encounter Details Date Type Department Care Team (Late st Contact Info) Description 12/03/2023 Telephone Hematology/Oncology at [address] [phone] Aby Del Rio, RN Diarrhea; [...] 100mg BID x7days on 11/24, prescribed by sand buffer. He has finished that prescription, but continues to have diarrhea. He denies fever, abdominal pain/cramping, dark stools/blood in stool, dark yellow urine. Sometimes the urge to go is sudden and he needs to mccabe to a bathroom. He has not tried anything. He is going to try imodium a-d. If he does not see improvement or has worsening symptoms he knows to call [facility] on-call over the weekend. We will call [...] 10:20 AM EST Office [place] [address] Sriram Contreras MD [facility] [place] [address] 10/31/2024 1:30 PM EST Office Visit Hematology/Oncology at [address] [phone] Dmitry Bhatti MD [facility] DR HEMATOLOGY [place] [address] Ellen Mcrae APRN [facility] [place] [address] 10/31/2024 2:00 PM EST Infusion Hematology Oncology at [address] [phone] documented as of this encounter Visit Diagnoses Not on filedocumented in this encounter Care Teams Underlay Stitcher Relationship Specialty Start Date End Date Paulino Finley MD [address] [place] [address] PCP - General Emergency Medicine 09/11/21 documented as of this encounter
--- OUTSIDE RECORDS SUMMARY | 2024-08-28 12:49 | XMS_ITS | Encounter Summary ---
Author Organization [facility] [place] [address] Care Team Providers Care Sightseeing Guide Name Role Phone Paulino Finley MD Primary Care Provider [phone] Encounter Details Date Type Department Care Team [...] 10:20 AM EST Office [place] [address] Sriram Contreras MD [facility] [place] [address] 10/31/2024 1:30 PM EST Office Visit Hematology/Oncology at [address] [address] Dmitry Bhatti MD [facility] DR [place] [address] Ellen Mcrae APRN [facility] [place] [address] 10/31/2024 2:00 PM EST Infusion Hematology Oncology at [address] [phone] documented as of this encounter Visit Diagnoses Not on filedocumented in this encounter Care Teams Sightseeing Guide Relationship Specialty Start Date End Date Paulino Finley MD [address] [place] [address] PCP - General Emergency Medicine 09/11/21 documented as of this encounter
--- OUTSIDE RECORDS SUMMARY | 2024-08-28 12:49 | XMS_ITS | Encounter Summary ---
[place] [address] Care Team Providers Care Nitro Worker Name Role Phone Paulino Finley MD Primary Care Provider [phone] Encounter Details Date Type Department Care Team (Late st Contact Info) Description 08/11/2023 Telephone Hematology [place] [phone] Jennifer Francois, RN Social History Tobacco Use [...] Note 08/11/2023 Jose Bee, 1950 Jose Bee ([id number]) was prescribed Nebeqa by Dr. Bhatti Patient [...] receive his Nubeqa at no cost through [employer] until 08/06/2024. Message from Daniella Coombs RN sent at 07/28/2023 9:34 AM EDT ----- Regarding: FW: Nubeqa chemo call MAP waiting on MD portion- email to Paulino asking them to sign LOLITA ----- Message ----- From: Daniella Coombs RN Sent: 07/28/2023 12:00 AM EDT To: [facility] Hem Onc Triage Prostate Subject: FW: Nubeqa chemo call Application mailed back to on Wednesday per pt /MAP hadn't' received ----- Message ----- From: Daniella Coombs RN Sent: 07/21/2023 12:00 AM EDT To: [facility] Hem Onc Triage Prostate Subject: FW: Nubeqa chemo call Application sent to patient 07/13 by [facility] ----- Message ----- From: Daniella Coombs RN Sent: 07/15/2023 12:00 AM EDT To: [facility] Hem Onc Triage Prostate Subject: Nubeqa chemo call To [facility] for high co-pay documented in this encounter Plan of Treatment Upcoming Encounters Date Type Department Care Team (Late st Contact Info) Description 09/18/2024 10:20 AM EST Office Visit [place] [address] Sriram Contreras MD [facility] [place] [address] 10/31/2024 1:30 PM EST Office Visit Hematology/Oncology at [address] [phone] Dmitry Bhatti MD [facility] DR HEMATOLOGY [place] [address] Ellen Mcrae APRN [facility] [place] [address] 10/31/2024 2:00 PM EST Infusion Hematology Oncology at [address] [phone] documented as of this encounter Visit Diagnoses Not on filedocumented in this encounter Care Teams Nitro Worker Relationship Specialty Start Date End Date Paulino Finley MD [address] [place] [address] PCP - General Emergency Medicine 09/11/21 documented as of this encounter
--- OUTSIDE RECORDS SUMMARY | 2024-08-28 12:49 | XMS_ITS | Encounter Summary ---
Author Organization [facility] [place] [address] Care Team Providers Care Bisque Grader Name Role Phone Paulino Finley MD Primary Care Provider [phone] Encounter Details Date Type Department Care Team [...] 10:20 AM EST Office [place] [address] Sriram Contreras MD [facility] [place] [address] 10/31/2024 1:30 PM EST Office Visit Hematology/Oncology at [address] [phone] Dmitry Bhatti MD [facility] DR HEMATOLOGY [place] [address] Ellen Mcrae APRN [facility] [place] [address] 10/31/2024 2:00 PM EST Infusion Hematology Oncology at [address] [phone] documented as of this encounter Visit Diagnoses Not on filedocumented in this encounter Care Teams Bisque Grader Relationship Specialty Start Date End Date Paulnio Finley MD [address] [place] [address] PCP - General Emergency Medicine 09/11/21 documented as of this encounter
--- OUTSIDE RECORDS SUMMARY | 2024-08-28 12:49 | XMS_ITS | Encounter Summary ---
Author Organization [facility] [place] [address] Care Team Providers Care Resin Coater Name Role Phone Paulino Finley MD Primary Care Provider [phone] Encounter Details Date Type Department Care Team [...] 10:20 AM EST Office [place] [address] Sriram Contreras MD [facility] [place] [address] 10/31/2024 1:30 PM EST Office Visit Hematology/Oncology at [address] [phone] Dmitry Bhatti MD [facility] DR HEMATOLOGY [place] [address] Ellen Mcrae APRN [facility] [place] [address] 10/31/2024 2:00 PM EST Infusion Hematology Oncology at [address] [phone] documented as of this encounter Visit Diagnoses Not on filedocumented in this encounter Care Teams Resin Coater Relationship Specialty Start Date End Date Paulino Finley MD [address] [place] [address] PCP - General Emergency Medicine 09/11/21 documented as of this encounter
--- OUTSIDE RECORDS SUMMARY | 2024-08-28 12:49 | XMS_ITS | Encounter Summary ---
[place] [address] Care Team Providers Care Cadd Technician Name Role Phone Paulino Finley MD Primary Care Provider [phone] Reason for Visit * Reason Onset Date Comments Public Health Screening 09/03/2023 COVID Encounter Details Date Type Department Care Team (Late st Contact Info) Description 09/03/2023 Telephone Hematology/Oncology at [address] [phone] Meghan Odonnell RN Public Health Screening (COVID) [...] notes frequent urination. Saw Dr. Phelps at [facility] urology yesterday, they had a planned [...] a flu/cold medication? Best call back number [phone] documented in this encounter Plan of Treatment Upcoming Encounters Date Type Department Care Team (Late st Contact Info) Description 09/18/2024 10:20 AM EST Office [place] [address] Sriram Contreras MD [facility] [place] [address] 10/31/2024 1:30 PM EST Office Visit Hematology/Oncology at [address] [phone] Dmitry Bhatti MD [facility] DR HEMATOLOGY [place] [address] Ellen Mcrae APRN [facility] [place] [address] 10/31/2024 2:00 PM EST Infusion Hematology Oncology at [address] [phone] documented as of this encounter Visit Diagnoses Not on filedocumented in this encounter Care Teams Cadd Technician Relationship Specialty Start Date End Date Paulino Finley MD [address] [place] [address] PCP - General Emergency Medicine 09/11/21 documented as of this encounter
--- OUTSIDE RECORDS SUMMARY | 2024-08-28 12:49 | XMS_ITS | Encounter Summary ---
Author Organization [facility] [place] [address] Care Team Providers Care Supervisor Aluminum Boat Assembly Name Role Phone Paulino Finley MD Primary [...] 10:20 AM EST Office [place] [address] Sriram Contreras MD [facility] [place] [address] 10/31/2024 1:30 PM EST Office Visit Hematology/Oncology at [address] [address] Dmitry Bhatti MD [facility] DR [place] [address] Ellen Mcrae APRN [facility] [place] [address] 10/31/2024 2:00 PM EST Infusion Hematology Oncology at [address] [phone] documented as of this encounter Visit Diagnoses Not on filedocumented in this encounter Care Teams Supervisor [employer]uminum Boat Assembly Relationship Specialty Start Date End Date Paulino Finley MD [address] [place] [address] PCP - General Emergency Medicine 09/11/21 documented as of this encounter
--- OUTSIDE RECORDS SUMMARY | 2024-08-28 12:49 | XMS_ITS | Encounter Summary ---
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 Procedures TC DOCETAXEL, 1MG, INJECTION TC PEGFILGRASTIM, EXCLUDES BIOSIMILAR, 0.5 MG, INJ J9171 DOCETAXEL J2506 NEULASTA ONPRO Dmitry Bhatti MD [address] [place] [address] [place] [address] Dmitry Bhatti MD [address] [place] [address] [place] [address] Referral ID Status Reason Start Date Expiration Date Visits Re quested Visits Authorized [id number] Closed 07/08/2023 07/07/2024 99 99 Encounter Details Date Type Department Care Team (Late st Contact Info) Description 09/21/2023 12:00 PM EST Infusion Hematology Oncology at [address] [phone] Prostate cancer metastatic to multiple sites; Malignant [...] 10:20 AM EST Office [place] [address] Sriram Contreras MD [facility] [place] [address] 10/31/2024 1:30 PM EST Office Visit Hematology/Oncology at [address] [phone] Dmitry Bhatti MD [facility] HEMATOLOGY [place] [address] Ellen Mcrae APRN [facility] [place] [address] 10/31/2024 2:00 PM EST Infusion Hematology Oncology at [address] [phone] documented as of this encounter [...] mL/hr documented in this encounter Care Teams Sanding Machine Buffer Relationship Specialty Start Date End Date Paulino Finley MD [address] [place] [address] PCP - General Emergency Medicine 09/11/21 documented as of this encounter
--- OUTSIDE RECORDS SUMMARY | 2024-08-28 12:49 | XMS_ITS | Encounter Summary ---
[place] [address] Care Team Providers Care Wheat Buyer Name Role Phone Paulino Finley MD Primary Care Provider [phone] Reason for Visit * Reason Onset Date Comments Hematuria 08/23/2023 Visual blood in urine Encounter Details Date Type Department Care Team (Late st Contact Info) Description 08/23/2023 Telephone Hematology/Oncology at [address] [phone] Debo Antunez RN Hematuria (Visual [...] call back, best call back number is [phone] documented in this encounter Plan of Treatment Upcoming Encounters Date Type Department Care Team (Late st Contact Info) Description 09/18/2024 10:20 AM EST Office [place] [address] Sriram Contreras MD [facility] [place] [address] 10/31/2024 1:30 PM EST Office Visit Hematology/Oncology at [address] [phone] Dmitry Steven MD [facility] DR [place] [address] Ellen Mcrae APRN [facility] [place] [address] 10/31/2024 2:00 PM EST Infusion Hematology Oncology at [address] [phone] documented as of this encounter Visit Diagnoses Diagnosis Hematuria, unspecified type- Primary documented in this encounter Care Teams Wheat Buyer Relationship Specialty Start Date End Date Paulino Finley MD [address] [place] [address] PCP - General Emergency Medicine 09/11/21 documented as of this encounter
--- OUTSIDE RECORDS SUMMARY | 2024-08-28 12:49 | XMS_ITS | Encounter Summary ---
Author Organization [facility] [place] [address] Care Team Providers Care Geometry Professor Name Role Phone Paulino Finley MD Primary Care Provider [phone] Reason for Referral * Consultation (Urgent) - Closed Specialty Diagnoses / Procedures Referred By Huma valladares Referred To Contact Genetics Diagnoses Prostate cancer metastatic to multiple sites Dmitry Bhatti MD [facility] DR HEMATOLOGY [place] [address] [facility] Hem Onc [address] [place] [address] Referral ID Status Reason Start Date Expiration Date V isits Requested Visits Authorized [id number] Closed Consult, Test & Treat 12/21/2023 12/20/2024 1 1 Encounter Details Date Type Department Care Team (Late st Contact Info) Description 12/21/2023 10:00 AM EST Office Visit Hematology/Oncology at [address] [phone] Dmitry Bhatti MD [facility] DR HEMATOLOGY [place] [address] Ellen Mcrae APRN [facility] [place] [address] Prostate cancer metastatic to multiple sites (Primary [...] weight gain and leg swelling. Follows with paring machine operator Dr. Bah. He is currently on antibiotics [...] here with his today. They live in [place]. Medications: Your Medications Accurate as of December [...] adenocarcinoma, involving 1 of 1 core. - Southfield score 4 + 5 = 9 (grade [...] adenocarcinoma, involving 1 of 1 core. - Southfield score 5 + 4 = 9 (grade group 5), tumor extent 15 mm (95% of core). - Perineural invasion is identified. G. PROSTATE, LEFT BASE LATERAL, NEEDLE CORE BIOPSY: - Atypical small acinar proliferation (LOLITA), highly suspicious for minute focus (0.1 mm) of prostatic adenocarcinoma. H. PROSTATE, LEFT BASE MEDIAL, NEEDLE CORE BIOPSY: - Prostatic adenocarcinoma, involving 1 of 1 core. - Southfield score 4 + 3 = 7 (grade group 3), 70% Southfield pattern 4, tumor extent 6 mm (40% of core). - Cribriform Southfield pattern 4 is present. I. PROSTATE, LEFT MID LATERAL, NEEDLE CORE BIOPSY: - Prostatic adenocarcinoma, involving 1 of 1 core. - Southfield score 3 + 5 = 8 (grade group 4), tumor extent 4 mm (30% of core). J. PROSTATE, LEFT MID MEDIAL, NEEDLE CORE BIOPSY: - Prostatic adenocarcinoma, involving 1 of 1 core. - Southfield score 4 + 5 = 9 (grade group 5), tumor extent 2 mm (15% of core). K. PROSTATE, LEFT APEX LATERAL, NEEDLE CORE BIOPSY: - Benign prostatic tissue. L. PROSTATE, LEFT APEX MEDIAL, NEEDLE CORE BIOPSY: - Prostatic adenocarcinoma, involving 1 of 1 core. - Southfield score 5 + 4 = 9 (grade [...] Food and Drug Administration approved darolutamide (Nubeqa, [employer] tablets in combination with docetaxel for adult patients with metastatic hormone-sensitive prostate cancer (mHSPC). Efficacy was based on ARASENS ([id number]), a randomized, multicenter, double- blind, placebo-controlled clinical trial in 1306 patients with mHSPC. Patients were randomized to receive either darolutamide 600 mg orally twice daily plus docetaxel 75 mg/m2 intravenously administered every 3 weeks forup to 6 cycles or docetaxel plus placebo. All patients received a gonadotropin-releasing hormone analog concurrently or had a bilateral orchiectomy. The primary efficacy measure was overall survival (OS). Xmup-ag-txbq progression was an additional efficacy measure. Median OS was not reached (NR) (95% CI: NR, NR) in the darolutamide plus docetaxelarm and 48.9 months (95% CI: 44.4, NR) in docetaxel plus placebo arm (HR 0.68; 95% CI: 0.57, 0.80; p<0.0001). Treatment with darolutamide and docetaxel resulted in a statistically significant delay in uwhj-vv-vmxs progression (HR 0.79; 95% CI: 0.66, 0.95; [...] in 6 weeks withblood work and Lupron. # Germline and somatic mutation testing: Will [...] 10:20 AM EST Office [place] [address] Sriram Contreras MD [facility] [place] [address] 10/31/2024 1:30 PM EST Office Visit Hematology/Oncology at [address] [phone] Dmitry Bhatti MD [facility] DR HEMATOLOGY [place] [address] Ellen Mcrae APRN [facility] [place] [address] 10/31/2024 2:00 PM EST Infusion Hematology Oncology at [address] [phone] Scheduled Referrals Name Type Priority Associated Diagnoses [...] monitoring documented in this encounter Care Teams Geometry Professor Relationship Specialty Start Date End Date Paulino Finley MD [address] [place] [address] PCP - General Emergency Medicine 09/11/21 documented as of this encounter
--- OUTSIDE RECORDS SUMMARY | 2024-08-28 12:50 | XMS_ITS | Encounter Summary ---
[place] [address] Care Team Providers Care Algebraist Name Role Phone Jovon Sifuentes MD Primary Care Provider Encounter Details Date Type Department Care Team (Latest Contact Info) Description 06/29/2019 10:15 AM EDT Office Visit Audiology at [address] [phone] Yulissa Munoz AUD [facility] [place] [address] Bilateral asymmetric sensorineural hearing loss Social History [...] his grandaughter and . He's in the [place] a lot, rides a tractor, shooting/hunting. He [...] a MUTE at the fitting Sudarshan Montoya, Head Of Physics [facility] [place] [address] ; [phone] (fax) documented in this encounter Plan of Treatment Upcoming Encounters Date Type Department Care Team (Late st Contact Info) Description 09/18/2024 10:20 AM EST Office [place] [address] Sriram Contreras MD [facility] [place] [address] 10/31/2024 1:30 PM EST Office Visit Hematology/Oncology at [address] [phone] Dmitry Bhatti MD [facility] DR HEMATOLOGY [place] [address] Ellen Mcrae APRN [facility] [place] [address] 10/31/2024 2:00 PM EST Infusion Hematology Oncology at [address] [phone] documented as of this encounter Visit Diagnoses Diagnosis Bilateral asymmetric sensorineural hearing loss documented in this encounter Care Teams Algebraist Relationship Specialty Start Date End Date Jovon Sifuentes MD [address] [place] [address] PCP - General 09/30/10 09/10/21 documented as of this encounter
--- OUTSIDE RECORDS SUMMARY | 2024-08-28 12:50 | XMS_ITS | Encounter Summary ---
[place] [address] Care Team Providers Care Residential Service Technician Name Role Phone Jovon Sifuentes MD Primary Care Provider [phone] Encounter Details Date Type Department Care Team (Late Contact Info) Description 08/09/2018 Telephone [place] [address] Dina Alonzo RN Social History Tobacco Use [...] 10:20 AM EST Office [place] [address] Sriram Contreras MD [facility] [place] [address] 10/31/2024 1:30 PM EST Office Visit Hematology/Oncology at [address] [phone] Dmitry Bhatti MD [facility] [place] [address] Ellen Mcrae APRN [facility] [place] [address] 10/31/2024 2:00 PM EST Infusion Hematology Oncology at [address] [phone] documented as of this encounter Visit Diagnoses Not on filedocumented in this encounter Care Teams Residential Service Technician Relationship Specialty Start Date End Date Jovon Sifuentes MD [address] [place] [address] PCP - General 09/30/10 09/10/21 documented as of this encounter
--- OUTSIDE RECORDS SUMMARY | 2024-08-28 12:50 | XMS_ITS | Encounter Summary ---
[place] [address] Care Team Providers Care Flare Worker Name Role Phone Jovon Sifuentes MD Primary Care Provider Encounter Details Date Type Department Care Team (Latest Contact Info) Description 03/02/2019 9:30 AM EDT Office Visit Audiology at [address] [phone] Marianela Vyas, DAVID [facility] [place] [address] Asymmetrical sensorineural hearing loss; Tinnitus, bilateral Social [...] for findings, impressions and recommendations. Sudarshan Orozco, [facility] [place] [address] documented in this encounter Plan of Treatment Upcoming Encounters Date Type Department Care Team (Late st Contact Info) Description 09/18/2024 10:20 AM EST Office Visit [place] [address] Sriram Contreras MD [facility] [place] [address] 10/31/2024 1:30 PM EST Office Visit Hematology/Oncology at [address] [phone] Dmitry Bhatti MD [facility] [place] [address] Ellen Mcrae APRN [facility] [place] [address] 10/31/2024 2:00 PM EST Infusion Hematology Oncology at [address] [phone] documented as of this encounter Procedures Procedure [...] aid series will be scheduled at Mr. Bee'pato convenience. - Use of communication strategies in adverse listening environments (e.g. reducing background noise and speaking tzhm-hg-lxnn). - Use of hearing protection when exposed to potentially hazardous sound levels. Procedure Note Unknown - 03/02/2019 - Follow up as scheduled with Dr. Contreras. - Re-evaluation of hearing in one year or sooner as per otolaryngology orif new concerns arise. - Consider trial of amplification if medically cleared by otolaryngology.A hearing aid series will be scheduled at Mr. Bee'pato convenience. - Use of communication strategies in adverse listening environments (e.g.reducing background noise and speaking dkvn-hl-hcuk). - Use of hearing protection when exposed to potentially hazardous soundlevels. Unknown AUDIOLOGY SERVICES O RDERABLES AUDBASE COMP documented in this encounter Visit Diagnoses Diagnosis Asymmetrical sensorineural hearing loss Sensorineural hearing loss, asymmetrical Tinnitus, bilateral Unspecified tinnitus documented in this encounter Care Teams Flare Worker Relationship Specialty Start Date End Date Jovon Sifuentes MD [address] [place] [address] PCP - General 09/30/10 09/10/21 documented as of this encounter
--- OUTSIDE RECORDS SUMMARY | 2024-08-28 12:50 | XMS_ITS | Encounter Summary ---
Author Organization [facility] Address [facility] [place] [address] Care Team Providers Care Construction Framer Name Role Phone Paulino Finley MD Primary Care Provider [phone] Reason for Visit * Reason Comments Advice Only * Consultation (Routine) - Closed Specialty Diagnoses / Procedures Referred By Huma valladares Referred To Contact Hematology and Oncology Diagnoses Malignant neoplasm of prostate Procedures treatment options Dinesh Phelps MD [address] [place] [address] Dmitry Steven MD [facility] [place] [address] Referral ID Status Reason Start Date Expiration Date Visits Re quested Visits Authorized [id number] Closed 06/14/2023 06/13/2024 1 1 Encounter Details Date Type Department Care Team (Late st Contact Info) Description 07/08/2023 1:00 PM EDT Office Visit Hematology [place] [address] Dmitry Steven MD [facility] [place] [address] Malignant neoplasm of prostate metastatic to bone (Primary Dx); Androgen deprivation therapy Social History Tobacco Use Types Packs/Day Years Used Date Smoking Tobacco: Former Cigarettes 27 1 969 - 1995 Pipe Smokeless [...] fibrillation March 2017: noted in ED in [facility]. Previously noted to be paroxysmal. 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 He is to Briana for 40 yrs. 4 children - All live in different states - [place]. Enjoys raising Beef Cattle and doing Civil War and Living History and shoot Black powder/Antique firearms. He enjoys builiding Firearms/Blacksmithing - Charcoal, [place], etc. Social Determinants of Health Financial Resource [...] adenocarcinoma, involving 1 of 1 core. - Berne score 4 + 5 = 9 (grade group 5), tumor extent 1 mm (15% of core). - Perineural invasion is identified. C. PROSTATE, RIGHT MID LATERAL, NEEDLE CORE BIOPSY: - Prostatic adenocarcinoma, involving 1 of 1 core. - Berne score 5 + 4 = 9 (grade group 5), tumor extent 10 mm (80% of core). D. PROSTATE, RIGHT MID MEDIAL, NEEDLE CORE BIOPSY: - Prostatic adenocarcinoma, involving 1 of 1 core. - Berne score 4 + 5 = 9 (grade group 5), tumor extent 9 mm (80% of core). E. PROSTATE, RIGHT APEX LATERAL, NEEDLE CORE BIOPSY: - Prostatic adenocarcinoma, involving 1 of 1 core. - Berne score 5 + 4 = 9 (grade [...] adenocarcinoma, involving 1 of 1 core. - Berne score 4 + 3 = 7 (grade [...] adenocarcinoma, involving 1 of 1 core. - Berne score 5 + 4 = 9 (grade [...] Food and Drug Administration approved darolutamide (Nubeqa, iGen6.) tablets in combination with docetaxel for adult patients with metastatic hormone-sensitive prostate cancer (mHSPC). Efficacy was based on ARASENS ([id number]), a randomized, multicenter, double- blind, placebo-controlled clinical trial in 1306 patients with mHSPC. Patients were randomized to receive either darolutamide 600 mg orally twice daily plus docetaxel 75 mg/m2 intravenously administered every 3 weeks forup to 6 cycles or docetaxel plus placebo. All patients received a gonadotropin-releasing hormone analog concurrently or had a bilateral orchiectomy. The primary efficacy measure was overall survival (OS). Vvym-ob-pfoc progression was an additional efficacy measure. Median OS was not reached (NR) (95% CI: NR, NR) in the darolutamide plus docetaxelarm and 48.9 months (95% CI: 44.4, NR) in docetaxel plus placebo arm (HR 0.68; 95% CI: 0.57, 0.80; p<0.0001). Treatment with darolutamide and docetaxel resulted in a statistically significant delay in oall-mr-dzeq progression (HR 0.79; 95% CI: 0.66, 0.95; [...] CBC, CMP, PSA, testosterone, chemotherapy teaching by INFORMATION SYSTEMS AUDITOR and first cycle of docetaxel with Becky The plan was discussed with the patient and his . All questions were answered to patient's satisfaction. I would like to thank Dr. Phelps and Dr. Finley for allowing me to participate in the care ofthis yordy gentleman documented in this encounter Plan of Treatment Upcoming Encounters Date Type Department Care Team (Late st Contact Info) Description 09/18/2024 10:20 AM EST Office Visit [place] [phone] Sriram Contreras MD [facility] [place] [address] 10/31/2024 1:30 PM EST Office Visit Hematology/Oncology at [address] [phone] Dmitry Steven MD [facility] DR HEMATOLOGY [place] [address] Ellen Mcrae APRN [facility] [place] [address] 10/31/2024 2:00 PM EST Infusion Hematology Oncology at [address] [phone] Scheduled Orders Name Type Priority Associated Diagnoses [...] (ABNORMAL) Testosterone, total (07/08/2023 2:07 PM EDT) [facility] Signature Testosterone <0.12(L) 1.93 - 7.40 ng/mL [facility] Comment: Pediatric Reference Ranges: ? [...] In Lab Dmitry Steven MD CHEMISTRY ORDERABLES [facility] [place] [address] * (ABNORMAL) Comprehensive metabolic panel (non-fasting) (07/08/2023 2:07 PM EDT) Glucose 73 65 - 199 mg/dL [facility] Comment:Diabetes: >=200 mg/d L plus symptoms Blood Urea Nitrogen 16 10 - 20 mg/dL [facility] Creatinine 1.12 0.80 - 1.50 mg/dL [facility] Sodium 143 135 - 145 mmol/L [facility] Potassium 4.4 3.5 - 5.0 mmol/L [facility] Comment: Please note: ??Patients with WBC >100,000 may have falsely elevated Potassium levels. ??For accurate Potassium quantification in these patients send serum separator tube (gold top) for subsequent determinations. ??Contact the Clinical Chemistry Laboratory if there are any questions. Chloride 109(H) 98 - 107 mmol/L [facility] Carbon Dioxide 24 22 - 31 mmol/L [facility] Anion Gap 10 5 - 15 mmol/L [facility] Calcium 9.4 8.5 - 10.5 mg/dL [facility] Protein, Total 7.2 6.1 - 8.0 g/dL [facility] Albumin 4.2 3.2 - 5.2 g/dL [facility] Aspartate Aminotransferase 17 0 - 39 unit/L [facility] Alanine Aminotransferase 17 0 - 55 unit/L [facility] Alkaline Phosphatase 407(H) 40 - 130 unit/L [facility] Bilirubin, Total 0.2 0.2 - 1.3 mg/dL [facility] Est Glomerular Filtration Rate 69 >=60 mL/min/1. 73 m?? [facility] Comment: This patient's estimated GFR [...] In Lab Dmitry Steven MD CHEMISTRY ORDERABLES [facility] [place] [address] * (ABNORMAL) PSA (Ultrasensitive) (07/08/2023 2:07 PM EDT) Prostate Specific Antigen (Ultrasensitive) 18.80(H) 0.00 - 4.00 ng/mL [facility] Comment: PLEASE NOTE: The above [...] In Lab Dmitry Steven MD CHEMISTRY ORDERABLES [facility] [place] [id number] documented in this encounter Visit Diagnoses Diagnosis Malignant neoplasm of prostate metastatic to bone- Primary Malignant neoplasm of prostate Androgen deprivation therapy Encounter for therapeutic drug monitoring documented in this encounter Care Teams Construction Framer Relationship Specialty Start Date End Date Paulino Finley MD [address] [place] [address] PCP - General Emergency Medicine 09/11/21 documented as of this encounter
--- OUTSIDE RECORDS SUMMARY | 2024-08-28 12:50 | XMS_ITS | Encounter Summary ---
Author Organization [facility] [place] [address] Care Team Providers Care Elementary Educator Name Role Phone Jovon Sifuentes MD Primary Care Provider [phone] Reason for Visit * Reason Comments Follow-up i had throat cancer and I have to come in for a 3 month check up Encounter Details Date Type Department Care Team (Late st Contact Info) Description 12/08/2018 9:20 AM EST Office [place] [address] Sriram Contreras MD [facility] [place] [address] Cancer of base of tongue; Allergic rhinitis, [...] MD - 12/08/2018 9:20 AM EST . [facility] OTOLARYNGOLOGY HEAD AND NECK TUMOR CLINIC FOLLOW [...] CPAP G47.33, Z99.89 ??? Adult BMI 30+ [id number] PAST MEDICAL HISTORY Past Medical History: Diagnosis [...] the TelePack Unit and uploaded to the [email or web address] Director Of Channel Marketing. Findings Nasal cavity Right nasal cavity examination [...] 10:20 AM EST Office [place] [address] Sriram Contreras MD [facility] [place] [address] 10/31/2024 1:30 PM EST Office Visit Hematology/Oncology at [address] [phone] Dmitry Bhatti MD [facility] DR HEMATOLOGY [place] [address] Ellen Mcrae APRN [facility] [place] [address] 10/31/2024 2:00 PM EST Infusion Hematology Oncology at [address] [phone] documented as of this encounter Visit Diagnoses Diagnosis 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
--- OUTSIDE RECORDS SUMMARY | 2024-08-28 12:50 | XMS_ITS | Encounter Summary ---
Author Organization [facility] Address [facility] [place] [address] Care Team Providers Care Packing Machine Feeder Name Role Phone Jovon Sifuentes MD Primary Care Provider Encounter Details Date Type Department Care Team (Late st Contact Info) Description 12/05/2020 11:30 AM EST Office [place] [address] Sriram Contreras MD [facility] [place] [address] Cancer of base of tongue Social History [...] Progress Notes * Sriram Contreras MD - 12/05/2020 11:30 AM EST . [facility] [...] CPAP G47.33, Z99.89 ??? Adult BMI 30+ [id number] PAST MEDICAL HISTORY Past Medical History: Diagnosis [...] the TelePack Unit and uploaded to the [employer] Classified Copy Control Clerk. Findings Nasal cavity Right nasal cavity examination [...] 10:20 AM EST Office [place] [address] Sriram Contreras MD [facility] [place] [address] 10/31/2024 1:30 PM EST Office Visit Hematology/Oncology at [address] [phone] Dmitry Bhatti MD [facility] DR [place] [address] Ellen Mcrae APRN [facility] [place] [address] 10/31/2024 2:00 PM EST Infusion Hematology Oncology at [address] [phone] documented as of this encounter Visit Diagnoses Diagnosis 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
--- OUTSIDE RECORDS SUMMARY | 2024-08-28 12:50 | XMS_ITS | Encounter Summary ---
Author Organization [facility] [address] Care Team Providers Care Hook Tender Name Role Phone Paulino Finley MD Primary Care Provider Reason for Visit * Consultation (Routine) - Closed Specialty Diagnoses / Procedures Referred By Contac t Referred To Contact Audiology Diagnoses Unspecified hearing loss, unspecified ear Paulino Finley MD [address] [place] [address] [facility] [address] [place] [phone] Referral ID Status Reason Start Date Expiration Date V isits Requested Visits Authorized [id number] Closed Consult, Test & Treat Connection Center PCP Updated and/or Approved 09/01/2021 09/01/2022 12 12 Encounter Details Date Type Department Care Team (Latest Contact Info) Description 01/23/2022 9:00 AM EDT Office Visit Audiology at [address] [phone] Yulissa Munoz, DAVID [facility] [place] [address] Asymmetrical sensorineural hearing loss Social [...] Munoz, AUD - 01/23/2022 9:00 AM EDT [facility] AUDIOLOGY SECTION AUDIOLOGIC EVALUATION Name: Jose Bee [...] sensitivity was stable for both ears compared [id number]. ?? Word recognition was good (84%) for [...] pure tone audiogram. SNR loss is the bnjvthinltxqpuo-co-gfwzg ratio required by an individual to understand [...] not hesitate to contact this Section at [phone] if there are questions regarding this report or its recommendations. David Montoya Board [place] [address] Attachment: audiogram CC: Paulino Finley MD documented in this encounter Plan of Treatment Upcoming Encounters Date Type Department Care Team (Late st Contact Info) Description 09/18/2024 10:20 AM EST Office [place] [phone] Sriram Contreras MD [facility] [place] [address] 10/31/2024 1:30 PM EST Office Visit Hematology/Oncology at [address] [phone] Dmitry Bhatti MD [facility] DR HEMATOLOGY [place] [address] Ellen Mcrae APRN [facility] [place] [address] 10/31/2024 2:00 PM EST Infusion Hematology Oncology at [address] [phone] documented as of this encounter Procedures Procedure [...] SNR loss binaurally at 80dB HL. Yulissa Munoz AUD AUDIOLOGY SERVICES O RDERABLES AUDBASE COMP documented in this encounter Visit Diagnoses Diagnosis Asymmetrical sensorineural hearing loss Sensorineural hearing loss, asymmetrical documented in this encounter Care Teams Hook Tender Relationship Specialty Start Date End Date Paulino Finley MD [address] [place] [address] PCP - General Emergency Medicine 09/11/21 documented as of this encounter
--- OUTSIDE RECORDS SUMMARY | 2024-08-28 12:50 | XMS_ITS | Encounter Summary ---
[place] [address] Care Team Providers Care Rivet Tester Name Role Phone Paulino Finley MD Primary Care Provider [phone] Reason for Visit * Reason Comments Chemotherapy Cycle 1, Day 1; Doce taxel * Treatment/Therapy Plan Authorization (Routine) - Authorized Specialty Diagnoses / Procedures Referred By Contbela t Referred To Contact Hematology and Oncology Diagnoses Prostate cancer metastatic to multiple sites Procedures TC LEUPROLIDE ACETATE 7.5MG, FOR DEPOST SUSPENSION (LUPRON DEPOT) [id number] LUPRON DEPOT Dmitry Bhatti MD [address] [place] [address] DR HEMATOLOGY [place] [address] Dmitry Bhatti MD [address] [place] [address] DR HEMATOLOGY [place] [address] Referral ID Status Reason Start Date Expiration Date V isits Requested Visits Authorized [id number] Authorized 07/08/2023 08/01/2025 101 Encounter Details Date Type Department Care Team (Late st Contact Info) Description 08/10/2023 10:00 AM EDT Infusion Hematology Oncology at [address] [phone] Prostate cancer metastatic to multiple sites; Malignant [...] clinic hours (8am-5pm Wednesday-Wednesday): pt. can call [phone] with questions or concerns. After clinic hours (5pm-8am Wednesday-Wednesday and weekends) pt can call [phone] and ask for the oil field operator/oncologist construction supervisor/carpenter. Jose M Cristal verbalized understanding of potential chemotherapy side effects [...] 10:20 AM EST Office [place] [address] Sriram Contreras MD [facility] [address] 10/31/2024 1:30 PM EST Office Visit Hematology/Oncology at [address] [phone] Dmitry Bhatti MD [facility] DR H[place] [address] Ellen Mcrae APRN [facility] [place] [address] 10/31/2024 2:00 PM EST Infusion Hematology Oncology at [address] [phone] documented as of this encounter Visit Diagnoses [...] mL/hr documented in this encounter Care Teams Rivet Tester Relationship Specialty Start Date End Date Paulino Finley MD [address] [place] [address] PCP - General Emergency Medicine 09/11/21 documented as of this encounter
--- OUTSIDE RECORDS SUMMARY | 2024-08-28 12:50 | XMS_ITS | Encounter Summary ---
[place] [address] Care Team Providers Care Hvac Tech Name Role Phone Jovon Sifuentes MD Primary Care Provider [phone] Encounter Details Date Type Department Care Team (Late st Contact Info) Description 12/05/2020 8:45 AM EST Office Visit Audiology at [address] [phone] Marianela Vyas, DAVID [facility] [place] [address] Procedure not carried out because of patient's [...] that the evaluation be completed. Sudarshan Orozco [employer] [place] [address] documented in this encounter Plan of Treatment Upcoming Encounters Date Type Department Care Team (Late st Contact Info) Description 09/18/2024 10:20 AM EST Office Visit [place] [address] Sriram Contreras MD [facility] [place] [address] 10/31/2024 1:30 PM EST Office Visit Hematology/Oncology at [address] [phone] Dmitry Bhatti MD [facility] DR [place] [address] Ellen Mcrae APRN [facility] [place] [address] 10/31/2024 2:00 PM EST Infusion Hematology Oncology at [address] [phone] documented as of this encounter Visit Diagnoses Diagnosis Procedure not carried out because of patient's decision documented in this encounter Care Teams Hvac Tech Relationship Specialty Start Date End Date Jovon Sifuentes MD [address] [place], [place] [address] PCP - General 09/30/10 09/10/21 documented as of this encounter
--- OUTSIDE RECORDS SUMMARY | 2024-08-28 12:50 | XMS_ITS | Encounter Summary ---
Author [place] [address] Care Team Providers Care Heavy Truck Technician Name Role Phone Jovon Sifuentes MD Primary Care Provider Encounter Details Date Type Department Care Team (Late st Contact Info) Description 10/29/2020 Telephone Audiology at [address] [phone] Ramonita Tee Social History Tobacco Use Types [...] for the upcoming hearing evaluation appointment at [facility] Audiology. Patient is aware a packet will bemailed out discussing coverage of the appointment. We have verified the [address] on file as[facility] [address] [facility] [address] Leah Mcmahon mailed out ABN for me. documented in this encounter Plan of Treatment Upcoming Encounters Date Type Department Care Team (Late st Contact Info) Description 09/18/2024 10:20 AM EST Office [place] [address] Sriram Contreras MD [facility] [place] [address] 10/31/2024 1:30 PM EST Office Visit Hematology/Oncology at [address] [phone] Dmitry Bhatti MD [facility] DR [place] [address] Ellen Mcrae APRN [facility] [place] [address] 10/31/2024 2:00 PM EST Infusion Hematology Oncology at [address] [phone] documented as of this encounter Visit Diagnoses Not on filedocumented in this encounter Care Teams Heavy Truck Technician Relationship Specialty Start Date End Date Jovon Sifuentes MD [address] [place] [address] PCP - General 09/30/10 09/10/21 documented as of this encounter
--- OUTSIDE RECORDS SUMMARY | 2024-08-28 12:50 | XMS_ITS | Encounter Summary ---
[place] [address] Care Team Providers Care Pullman Car Clerk Name Role Phone Jovon Sifuentes MD Primary Care Provider [phone] Encounter Details Date Type Department Care Team (Latest Contact Info) Description 06/12/2021 8:00 AM EDT Office Visit Audiology at [address] [phone] Valerie Toscano AUD [facility] [place] [address] Sensorineural hearing loss, asymmetrical Social History Tobacco [...] they were still in good working order. Karla Byrnes, Audiology Doctoral Painter Hand assisted during today's visit under my full [...] for any interim concerns. Sabina Toscano MS, [facility] Clinical Coordinator, Adult Audiology Program [place] [phone] (fax) AMPLIFICATION EQUIPMENT LIST: HEARING AID RIGHT LEFT Make/Model/Style Phonak Audeo M30 R Phonak Audeo M30 R Casing Color White White Serial Number [id number] Battery Size Rechargeable Rechargeable Invoice number/date [id number] 08/24/19 [id number] 08/24/19 Other Comments PROGRAM/SETTINGS Fitting Algorithm DSL [...] HELENA / Dome specifics Size [address] small vented dome Size [address] small vented dome Impression Date Invoice number/date Other Comments ACCESSORIES Make/Model (color) Serial Number Warranty date Invoice number/date Settings Other Comments documented in this encounter Plan of Treatment Upcoming Encounters Date Type Department Care Team (Late st Contact Info) Description 09/18/2024 10:20 AM EST Office [place] [address] Sriram Contreras MD [facility] [place] [address] 10/31/2024 1:30 PM EST Office Visit Hematology/Oncology at [address] [phone] Dmitry Bhatti MD [facility] DR [place] [address] Ellen Mcrae APRN [facility] [place] [address] 10/31/2024 2:00 PM EST Infusion Hematology Oncology at [address] [phone] documented as of this encounter Visit Diagnoses Diagnosis Sensorineural hearing loss, asymmetrical documented in this encounter Care Teams Pullman Car Clerk Relationship Specialty Start Date End Date Jovon Sifuentes MD [address] [place] [address] PCP - General 09/30/10 09/10/21 documented as of this encounter
--- OUTSIDE RECORDS SUMMARY | 2024-08-28 12:50 | XMS_ITS | Encounter Summary ---
Author Organization [facility] [place] [address] Care Team Providers Care Dipper Machine Operator Name Role Phone Paulino Finley MD Primary Care Provider [phone] Encounter Details Date Type Department Care Team (Late st Contact Info) Description 07/29/2023 [place] [phone] Casi Dong Social History Tobacco Use Types [...] the application for assistance with Nubeqa to [employer]. I will follow through once the music intern program makes a decision. documented in this encounter Plan of Treatment Upcoming Encounters Date Type Department Care Team (Late st Contact Info) Description 09/18/2024 10:20 AM EST Office [place] [address] Sriram Contreras MD [facility] [place] [address] 10/31/2024 1:30 PM EST Office Visit Hematology/Oncology at [address] [phone] Dmitry Bhatti MD [facility] DR [place] [address] Ellen Mcrae APRN [facility] [place] [address] 10/31/2024 2:00 PM EST Infusion Hematology Oncology at [address] [phone] documented as of this encounter Visit Diagnoses Not on filedocumented in this encounter Care Teams Dipper Machine Operator Relationship Specialty Start Date End Date Paulino Finley MD [address] [place] [address] PCP - General Emergency Medicine 09/11/21 documented as of this encounter
--- OUTSIDE RECORDS SUMMARY | 2024-08-28 12:50 | XMS_ITS | Encounter Summary ---
Author Organization [facility] [place] [address] Care Team Providers Care Instructor Robotics Name Role Phone Paulino Finley MD Primary Care Provider [phone] Encounter Details Date Type Department Care Team (Late st Contact Info) Description 08/02/2023 Telephone [place] [address] Calista Ridley Social History Tobacco Use Types [...] 10:20 AM EST Office [place] [address] Sriram Contreras MD [facility] [place] [address] 10/31/2024 1:30 PM EST Office Visit Hematology/Oncology at [address] [phone] Dmitry Bhatti MD [facility] DR [place] [address] Ellen Mcrae APRN [facility] [place] [address] 10/31/2024 2:00 PM EST Infusion Hematology Oncology at [address] [phone] documented as of this encounter Visit Diagnoses Not on filedocumented in this encounter Care Teams Instructor Robotics Relationship Specialty Start Date End Date Paulino Finley MD [address] [place] [address] PCP - General Emergency Medicine 09/11/21 documented as of this encounter
--- OUTSIDE RECORDS SUMMARY | 2024-08-28 12:50 | XMS_ITS | Encounter Summary ---
[place] [address] Care Team Providers Care Housing Case Manager Name Role Phone Jovon Sifuentes MD Primary Care Provider Encounter Details Date Type Department Care Team (Latest Contact Info) Description 04/04/2020 10:15 AM EDT Clinical Support Audiology at [address] [phone] Estela Edmond AUD [facility] [place] [address] Sensorineural hearing loss, asymmetrical Social History Tobacco [...] not power on when removing from the paper products inspector. When placed back in the paper products inspector, light was blinking red. ?? In-house repair attempted unsuccessfully. Sending hearing instrument to in- warranty manufacturerrepair. ?? Attempted to contact Mr. Bee via home and mobile number, however a voicemail message couldnot be left. ?? Mail to patient upon return from repair. Case on HIS shelf. PLAN: Patient to return for routine audiologic care as recommended by managing sewing trimmer. Contactthis Section in the interim for any concerns related to changes in hearing or aided benefit. David Avery Clinical Spout Liner Helper [place] [phone] AMPLIFICATION EQUIPMENT LIST: HEARING AID RIGHT LEFT Make/Model/Style Phonak Audeo M30 R Phonak Audeo M30 R Casing Color White White Serial Number [id number] Battery Size Rechargeable Rechargeable Invoice number/date [id number] 08/24/19 [id number] 08/24/19 Other Comments PROGRAM/SETTINGS Fitting Algorithm DSL [...] HELENA / Dome specifics Size 03 M track sweeper small vented dome Size 03 M track sweeper small vented dome Impression Date Invoice number/date Other Comments ACCESSORIES Make/Model (color) Serial Number Warranty date Invoice number/date Settings Other Comments documented in this encounter Plan of Treatment Upcoming Encounters Date Type Department Care Team (Late st Contact Info) Description 09/18/2024 10:20 AM EST Office Visit [place] [address] Sriram Contreras MD [facility] [place] [address] 10/31/2024 1:30 PM EST Office Visit Hematology/Oncology at [address] [phone] Dmitry Bhatti MD [facility] H[place]ATOLOGY [place] [address] Ellen Mcrae APRN [facility] [place] [address] 10/31/2024 2:00 PM EST Infusion Hematology Oncology at [address] [phone] documented as of this encounter Visit Diagnoses Diagnosis Sensorineural hearing loss, asymmetrical documented in this encounter Care Teams Housing Case Manager Relationship Specialty Start Date End Date Jovon Sifuentes MD [address] [place] [address] PCP - General 09/30/10 09/10/21 documented as of this encounter
--- OUTSIDE RECORDS SUMMARY | 2024-08-28 12:50 | XMS_ITS | Encounter Summary ---
[place] [address] Care Team Providers Care Email Production Consultant Name Role Phone Jovon Sifuentes MD Primary Care Provider [phone] Encounter Details Date Type Department Care Team (Late st Contact Info) Description 08/14/2019 Telephone [place] [phone] Angy Noriega Social History Tobacco Use Types [...] 10:20 AM EST Office Visit [place] [phone] Sriram Contreras MD [facility] [place] [address] 10/31/2024 1:30 PM EST Office Visit Hematology/Oncology at [address] [phone] Dmitry Bhatti MD [facility] [place] [address] Ellen Mcrae APRN [facility] [place] [address] 10/31/2024 2:00 PM EST Infusion Hematology Oncology at [address] [phone] documented as of this encounter Visit Diagnoses Not on filedocumented in this encounter Care Teams Email Production Consultant Relationship Specialty Start Date End Date Jovon Sifuentes MD [address] [place] [address] PCP - General 09/30/10 09/10/21 documented as of this encounter
--- OUTSIDE RECORDS SUMMARY | 2024-08-28 12:50 | XMS_ITS | Encounter Summary ---
Author Organization [facility] [place] [address] Care Team Providers Care State Farm Agent Team Member Name Role Phone Paulino Finley MD Primary Care Provider Encounter Details Date Type Department Care Team (Late st Contact Info) Description 06/04/2023 Ancillary Procedure Radiology Library at [facility] [place] [address] Paulino Finley MD [address] [place] [address] Social History Tobacco Use Types Packs/Day Years [...] 10:20 AM EST Office [place] [address] Sriram Contreras MD [facility] [place] [address] 10/31/2024 1:30 PM EST Office Visit Hematology/Oncology at [address] [phone] Dimtry Bhatti MD [facility] [place] [address] Ellen Mcrae APRN [facility] [place] [address] 10/31/2024 2:00 PM EST Infusion Hematology Oncology at [address] [phone] documented as of this encounter Procedures Procedure Name Priority Date/Time Associated Diagnosis Comments FILM LIBRARY STORAGE ONLY NUCLEAR MEDICINE Routine 06/04/2023 12:00 AM EDT documented in this encounter Results * Film Library- Storage Only nuclear medicine (06/04/2023 12:00 AM EDT) Narrative [facility] - 11/23/2023 2:50 PM EST This exam is auto-finalizing. It's purpose is for storage only. Paulino Finley MD IMG FILM LIBRARY ORD ERABLES [place], [place] documented in this encounter Visit Diagnoses Not on filedocumented in this encounter Care Teams State Farm Agent Team Member Relationship Specialty Start Date End Date Paulino Finley MD [address] [place] [address] PCP - General Emergency Medicine 09/11/21 documented as of this encounter
--- OUTSIDE RECORDS SUMMARY | 2024-08-28 12:50 | XMS_ITS | Encounter Summary ---
Author Organization [facility] [place] [address] Care Team Providers Care Credit Card Analyst Name Role Phone Jovon Sifuentes MD Primary Care Provider Encounter Details Date Type Department Care Team (Late Contact Info) Description 08/18/2019 Orders [place] [address] Angy Noriega Social History Tobacco Use Types [...] 10:20 AM EST Office Visit [place] [address] Sriram Contreras MD [facility] [place] [address] 10/31/2024 1:30 PM EST Office Visit Hematology/Oncology at [address] [phone] Dmitry Bhatti MD [facility] DR [place] [address] Ellen Mcrae APRN [facility] [place] [address] 10/31/2024 2:00 PM EST Infusion Hematology Oncology at [address] [phone] documented as of this encounter Visit Diagnoses Not on filedocumented in this encounter Care Teams Credit Card Analyst Relationship Specialty Start Date End Date Jovon Sifuentes MD [address] [place] [address] PCP - General 09/30/10 09/10/21 documented as of this encounter
--- OUTSIDE RECORDS SUMMARY | 2024-08-28 12:50 | XMS_ITS | Encounter Summary ---
[place] [address] Care Team Providers Care Net Repairer Name Role Phone Jovon Sifuentes MD Primary Care Provider [phone] Encounter Details Date Type Department Care Team (Late st Contact Info) Description 10/03/2018 [place] [address] Leora Lucas Social History Tobacco Use Types [...] if they have received the letter from [facility] regarding they needing additional info about the inpatient services he received during 07/13/17 surgery and also to call Marina on [phone] if they have billing questions. documented in this encounter Plan of Treatment Upcoming Encounters Date Type Department Care Team (Late st Contact Info) Description 09/18/2024 10:20 AM EST Office [place] [address] Sriram Contreras MD [facility] [place] [address] 10/31/2024 1:30 PM EST Office Visit Hematology/Oncology at [address] [phone] Dmitry Bhatti MD [facility] DR [place] [address] Ellen Mcrae APRN [facility] [place] [address] 10/31/2024 2:00 PM EST Infusion Hematology Oncology at [address] [phone] documented as of this encounter Visit Diagnoses Not on filedocumented in this encounter Care Teams Net Repairer Relationship Specialty Start Date End Date Jovon Sifuentes MD [address] [place] [address] PCP - General 09/30/10 09/10/21 documented as of this encounter
--- OUTSIDE RECORDS SUMMARY | 2024-08-28 12:50 | XMS_ITS | Encounter Summary ---
Author Organization [facility] [place] [address] Care Team Providers Care Field Operations Technician Name Role Phone Paulino Finley MD Primary Care Provider [phone] Encounter Details Date Type Department Care Team (Late st Contact Info) Description 08/09/2023 Notes [place] [phone] Casi Dong Social History Tobacco Use Types [...] 10:20 AM EST Office Visit [place] [phone] Sriram Contreras MD [facility] [address] 10/31/2024 1:30 PM EST Office Visit Hematology/Oncology at [address] [phone] Dmitry Bhatti MD [facility] DR [place] [address] Ellen Mcrae APRN [facility] [place] [address] 10/31/2024 2:00 PM EST Infusion Hematology Oncology at [address] [phone] documented as of this encounter Visit Diagnoses Not on filedocumented in this encounter Care Teams Field Operations Technician Relationship Specialty Start Date End Date Paulino Finley MD [address] [place] [address] PCP - General Emergency Medicine 09/11/21 documented as of this encounter
--- OUTSIDE RECORDS SUMMARY | 2024-08-28 12:50 | XMS_ITS | Encounter Summary ---
Author Organization [facility] [place] [address] Care Team Providers Care Milled Rice Broker Name Role Phone Paulino Finley MD Primary [...] 10:20 AM EST Office [place] [address] Sriram Contreras MD [facility] [place] [address] 10/31/2024 1:30 PM EST Office Visit Hematology/Oncology at [address] [phone] Dmitry Bhatti MD [facility] DR HEMATOLOGY [place] [address] Ellen Mcrae APRN [facility] [place] [address] 10/31/2024 2:00 PM EST Infusion Hematology Oncology at [address] [phone] documented as of this encounter Visit Diagnoses Not on filedocumented in this encounter Care Teams Milled Rice Broker Relationship Specialty Start Date End Date Paulino Finley MD [address] [place] [address] PCP - General Emergency Medicine 09/11/21 documented as of this encounter
--- OUTSIDE RECORDS SUMMARY | 2024-08-28 12:50 | XMS_ITS | Encounter Summary ---
[place] [address] Care Team Providers Care Coding Consultant Name Role Phone Jovon Sifuentes MD Primary Care Provider Encounter Details Date Type Department Care Team (Latest Contact Info) Description 04/15/2020 1:45 PM EDT Clinical Support Audiology at [address] [address] Estela Edmond AUD [facility] [place] [address] Sensorineural hearing loss, asymmetrical Social History Tobacco [...] company/invoice number) Replaced electronics, house and external acura sales consultant ([employer]; [phone]; 04.10.20) CHARGE TO PATIENT? No S-REM VERIFICATION PERFORMED? Yes RE-PROGRAMMED? (ELINOR session date) N/A PROGRAMS AND V/C STATUS CHANGED? N/A PHYSICAL AND ACOUSTIC INSPECTION PERFORMED? N/A DELIVERY (patient pick-up, patient seen, aid mailed or handed off) Mailed to pt w/ pt's case [facility] LOANER OUT? OTHER AMPLIFICATION EQUIPMENT LIST: HEARING AID RIGHT LEFT Make/Model/Style Phonak Audeo M30 R Phonak Audeo M30 R Casing Color White White Serial Number [id number] Battery Size Rechargeable Rechargeable Invoice number/date [id number] 08/24/19 [id number] 08/24/19 Other Comments PROGRAM/SETTINGS Fitting Algorithm DSL [...] HELENA / Dome specifics Size 03 M acura sales consultant small vented dome Size 03 M acura sales consultant small vented dome Impression Date Invoice number/date Other Comments ACCESSORIES Make/Model (color) Serial Number Warranty date Invoice number/date Settings Other Comments documented in this encounter Plan of Treatment Upcoming Encounters Date Type Department Care Team (Late st Contact Info) Description 09/18/2024 10:20 AM EST Office [place] [address] Sriram Contreras MD [facility] [place] [address] 10/31/2024 1:30 PM EST Office Visit Hematology/Oncology at [address] [phone] Dmitry Bhatti MD [facility] DR HEMATOLOGY [place] [address] Ellen Mcrae APRN [facility] [place] [address] 10/31/2024 2:00 PM EST Infusion Hematology Oncology at [address] [phone] documented as of this encounter Visit Diagnoses Diagnosis Sensorineural hearing loss, asymmetrical documented in this encounter Care Teams Coding Consultant Relationship Specialty Start Date End Date Jovon Sifuentes MD [address] [place] [address] PCP - General 09/30/10 09/10/21 documented as of this encounter
--- OUTSIDE RECORDS SUMMARY | 2024-08-28 12:50 | XMS_ITS | Encounter Summary ---
Author Organization [facility] [place] [address] Care Team Providers Care Gravel Hauler Name Role Phone Paulino Finley MD Primary Care Provider [phone] Encounter Details Date Type Department Care Team (Late st Contact Info) Description 08/04/2023 Notes [place] [address] Casi Dong Social History Tobacco Use Types [...] receive his Nubeqa at no cost through [employer] until 11/07/2023. * Casi Dong - 08/04/2023 3:46 PM EDT 08/05/2023- PROGRAM CALLED BACK- patient is NOT yet approved. The program technical account representative dhara on08/04/2023. They DO NOT have a determination at this time. documented in this encounter Plan of Treatment Upcoming Encounters Date Type Department Care Team (Late st Contact Info) Description 09/18/2024 10:20 AM EST Office [place] [address] Sriram Contreras MD [facility] [place] [address] 10/31/2024 1:30 PM EST Office Visit Hematology/Oncology at [address] [phone] Dmitry Bhatti MD [facility] [place] [address] Ellen Mcrae APRN [facility] [place] [address] 10/31/2024 2:00 PM EST Infusion Hematology Oncology at [address] [phone] documented as of this encounter Visit Diagnoses Not on filedocumented in this encounter Care Teams Gravel Hauler Relationship Specialty Start Date End Date Paulino Finley MD [address] [place] [address] PCP - General Emergency Medicine 09/11/21 documented as of this encounter
--- OUTSIDE RECORDS SUMMARY | 2024-08-28 12:50 | XMS_ITS | Encounter Summary ---
[place] [address] Care Team Providers Care Bed Setter Name Role Phone Paulino Finley MD Primary Care Provider [phone] Reason for Visit * Reason Comments Prior Authorization Nubeqa Encounter Details Date Type Department Care Team (Late st Contact Info) Description 07/08/2023 Specialty [place] [address] Efrem Dos Santos, [facility] Social History Tobacco Use Types Packs/Day [...] Jose Bee Patient : 1950 Patient Address: [address] [place] [phone] (home) Medication Name: NUBEQA 300 MG TABLET Medication ID: Patient Location: [facility] 3K Patient Location Comment: Medication Strength Frequency Requested: Take 2 tablets by mouth twice a day Qty/Day Supply: 120/30 New Start: New to Therapy Diagnosis & ICD-10 Code: Prostate Cancer C61 Subscriber Insurance: [place] [employer] Subscriber Insurance Comment: Phone: Fax: Physician: DMITRY STEVEN Physician Comment : PA Status: PA Not Needed Insurance mandated Pharmacy: Fillable at [facility]: Yes Insurance requirements/notes: None Copay: $597.40 Copay assistance: Other (Enter Comment) Copay assistance comment: PT has a high copay, would you like me to refer the PT to [facility] for financial assistance? Pharmacy staff will be reaching out to the patient to inform them of their medication's [facility]. If applicable, a pharmacist will speak with the patient to offer our specialty pharmacy services and to arrange delivery of their medication. Efrem Dos Santos 07/08/23 3:54 PM documented in this encounter Plan of Treatment Upcoming Encounters Date Type Department Care Team (Late st Contact Info) Description 09/18/2024 10:20 AM EST Office [place] [address] Sriram Contreras MD [facility] [place] [address] 10/31/2024 1:30 PM EST Office Visit Hematology/Oncology at [address] [phone] Dmitry Steven MD [facility] DR HEMATOLOGY [place] [address] Ellen Mcrae APRN [facility] [place] [address] 10/31/2024 2:00 PM EST Infusion Hematology Oncology at [address] [phone] documented as of this encounter Visit Diagnoses Not on filedocumented in this encounter Care Teams Bed Setter Relationship Specialty Start Date End Date Paulino Finley MD [address] [place] [address] PCP - General Emergency Medicine 09/11/21 documented as of this encounter
--- OUTSIDE RECORDS SUMMARY | 2024-08-28 12:50 | XMS_ITS | Encounter Summary ---
[place] [address] Care Team Providers Care Subsurface Augmentee Elint Operator Name Role Phone Jovon Sifuentes MD Primary Care Provider Reason for Visit * Audiology Exam (Routine) - Denied Specialty Diagnoses / Procedures Referred By Huma valladares Referred To Contact Audiology Diagnoses needs HAF and in trial check with next available provider (AP out on leave) Procedures HEARING AID FITTING Jovon Sifuentes MD [address] [place] [address] Valerie Toscano [facility] [place] [address] Referral ID Status Reason Start Date Expiration Date Visits Re quested Visits Authorized [id number] Denied 09/11/2019 09/10/2020 1 0 Encounter Details Date Type Department Care Team (Latest Contact Info) Description 09/11/2019 8:45 AM EST Office Visit Audiology at [address] [address] Valerie Toscano [facility] [place] [address] Sensorineural hearing loss, asymmetrical; Fitting and adjustment [...] of hearing aid fit was completed via [id number] (REM) using the Desired Sensation Level 5 [...] the 30-day trial. Sabina Aundrealaverne Toscano, MS, [facility] Clinical Coordinator, Adult Audiology Program [place] [phone] (fax) AMPLIFICATION EQUIPMENT LIST: HEARING AID RIGHT LEFT Make/Model/Style Phonak Audeo M30 R Phonak Audeo M30 R Casing Color White White Serial Number [id number] Battery Size Rechargeable Rechargeable Invoice number/date [id number] 08/24/19 [id number] 08/24/19 Other Comments PROGRAM/SETTINGS Fitting Algorithm DSL [...] HELENA / Dome specifics Size 03 M shipper/receiver small vented dome Size 03 M shipper/receiver small vented dome Impression Date Invoice number/date Other Comments ACCESSORIES Make/Model (color) Serial Number Warranty date Invoice number/date Settings Other Comments documented in this encounter Plan of Treatment Upcoming Encounters Date Type Department Care Team (Late st Contact Info) Description 09/18/2024 10:20 AM EST Office [place] [address] Sriram Contreras MD [facility] [place] [address] 10/31/2024 1:30 PM EST Office Visit Hematology/Oncology at [address] [phone] Dmitry Bhatti MD [facility] DR HEMATOLOGY [place] [address] Ellen Mcrae APRN [facility] [place] [address] 10/31/2024 2:00 PM EST Infusion Hematology Oncology at [address] [phone] documented as of this encounter Visit Diagnoses Diagnosis Sensorineural hearing loss, asymmetrical Fitting and adjustment of hearing aid documented in this encounter Care Teams Subsurface Augmentee Elint Operator Relationship Specialty Start Date End Date Jovon Sifuentes MD [address] [place] [address] PCP - General 09/30/10 09/10/21 documented as of this encounter
--- OUTSIDE RECORDS SUMMARY | 2024-08-28 12:50 | XMS_ITS | Encounter Summary ---
[place] [address] Care Team Providers Care Sawmill Worker Name Role Phone Jovon Sifuentes MD Primary Care Provider [phone] Reason for Referral * Diagnostic Test (Routine) - Closed Specialty Diagnoses / Procedures Referred By Contac t Referred To Contact Radiology Diagnoses Cancer of base of tongue Procedures CT Neck Soft Tissue w Contrast (Generic) Sriram Contreras MD [facility] [place] [address] [facility] [place] [address] Referral ID Status Reason Start Date Expiration Date V isits Requested Visits Authorized [id number] Closed Specialty Service Requested 06/29/2019 06/28/2020 1 1 * Diagnostic Test (Routine) - Closed Specialty Diagnoses / Procedures Referred By Contac t Referred To Contact Radiology Diagnoses Cancer of base of tongue Procedures CT Chest w Contrast Sriram Contreras MD [facility] [place] [address] [place] [place] [address] Referral ID Status Reason Start Date Expiration Date V isits Requested Visits Authorized [id number] Closed Specialty Service Requested 06/29/2019 06/28/2020 1 1 Reason for Visit * Diagnostic Test (Routine) - Closed Specialty Diagnoses / Procedures Referred By Huma valladares Referred To Contact Radiology Diagnoses Cancer of base of tongue Procedures CT Chest w Contrast Sriram Contreras MD [facility] DR WHALEYOLARY[place] [address] [place] [place] [address] Referral ID Status Reason Start Date Expiration Date V isits Requested Visits Authorized [id number] Closed Specialty Service Requested 06/29/2019 06/28/2020 1 1 Encounter Details Date Type Department Care Team (Latest Contact Info) Description 11/09/2019 8:56 AM EST - 11/09/2019 11:59 PM EST Hospital [place] [address] Sriram Contreras MD [facility] DR WHALEYOLARYNG[place]EL[place] [address] Cancer of base of tongue Discharge Disposition: [...] 10:20 AM EST Office [place] [address] Sriram Contreras MD [facility] [place] [address] 10/31/2024 1:30 PM EST Office Visit Hematology/Oncology at [address] [phone] Dmitry Bhatti MD [facility] DR HEMATOLOGY [place] [address] Ellen Mcrae APRN [facility] DR [place] [address] 10/31/2024 2:00 PM EST Infusion Hematology Oncology at [address] [phone] documented as of this encounter [...] the number below. ? Electronically signed by: Alley Pham [facility] ([phone]), at 11/09/2019 10:50 AM Narrative 11/09/2019 10:50 AM EST EXAMINATION: CT [...] number below. Electronically signed by: Alley Pham [facility]([phone]), at 11/09/2019 10:50 AM Sriram Contreras MD IMG CT ORDERABLES documented [...] mLs documented in this encounter Care Teams Sawmill Worker Relationship Specialty Start Date End Date Jovon Sifuentes MD [address] [place] [address] PCP - General 09/30/10 09/10/21 documented as of this encounter
--- OUTSIDE RECORDS SUMMARY | 2024-08-28 12:50 | XMS_ITS | Encounter Summary ---
[place] [address] Care Team Providers Care Sprayer Operator Name Role Phone Paulino Finley MD Primary Care Provider [phone] Reason for Visit * Reason Comments Specialty Pharmacy Review Nubeqa 300mg t ablet Encounter Details Date Type Department Care Team (Late st Contact Info) Description 07/08/2023 Specialty [place] [address] Jeannie Villatoro, [facility] Social History Tobacco Use Types Packs/Day [...] Villatoro - 07/08/2023 11:59 PM EDT The [facility] has completed a benefits investigation for Jose Bee to reviewtheir eligibility to fill at [facility]. Per patient's medication list they are prescribed Nubeqa 300mg tablet and the medication is able to be filled at the [facility], but the medication cost may not be financially viable. The patient is eligible to fill the medication through [facility] with a high copay. No PA required. Due to the high copay, the patient has been referred to [facility] for logistics team lead assistance. documented in this encounter Plan of Treatment Upcoming Encounters Date Type Department Care Team (Late st Contact Info) Description 09/18/2024 10:20 AM EST Office [place] [address] Sriram Contreras MD [facility] [place] [address] 10/31/2024 1:30 PM EST Office Visit Hematology/Oncology at [address] [phone] Dmitry Bhatti MD [facility] [address] [place] [address] Ellen Mcrae APRN [facility] [place] [address] 10/31/2024 2:00 PM EST Infusion Hematology Oncology at [address] [phone] documented as of this encounter Visit Diagnoses Not on filedocumented in this encounter Care Teams Sprayer Operator Relationship Specialty Start Date End Date Paulino Finley MD [address] [place] [address] PCP - General Emergency Medicine 09/11/21 documented as of this encounter
--- OUTSIDE RECORDS SUMMARY | 2024-08-28 12:50 | XMS_ITS | Encounter Summary ---
Author Organization [place] [address] Care Team Providers Care Wolf Hunter Name Role Phone Jovon Sifuentes MD Primary Care Provider Encounter Details Date Type Department Care Team (Late st Contact Info) Description 06/06/2020 10:00 AM EDT Office [place] [address] Sriram Contreras MD [facility] [place] [address] Cancer of base of tongue Social History [...] MD - 06/06/2020 10:00 AM EDT . [facility] FOLLOW [...] CPAP G47.33, Z99.89 ??? Adult BMI 30+ [id number] PAST MEDICAL HISTORY Past Medical History: Diagnosis [...] the TelePack Unit and uploaded to the [employer] Cutter Hand. Findings Nasal cavity Right nasal cavity examination [...] 10:20 AM EST Office [place] [address] Sriram Contreras MD [facility] [place] [address] 10/31/2024 1:30 PM EST Office Visit Hematology/Oncology at [address] [phone] Dmitry Bhatti MD [facility] DR HEMATOLOGY [place] [address] Ellen Mcrae APRN [facility] [place] [address] 10/31/2024 2:00 PM EST Infusion Hematology Oncology at [address] [phone] documented as of this encounter Visit Diagnoses Diagnosis 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
--- OUTSIDE RECORDS SUMMARY | 2024-08-28 12:50 | XMS_ITS | Encounter Summary ---
Author [place] [address] Care Team Providers Care Substitute Nurse Name Role Phone Paulino Finley MD Primary Care Provider [phone] Encounter Details Date Type Department Care Team (Latest Contact Info) Description 05/21/2022 8:00 AM EDT Office Visit Audiology at [address] [address] Valerie Toscano AUD [facility] [place] [address] Asymmetrical sensorineural hearing loss; Fitting and adjustment [...] cleaned from the contacts of the aids' customs brokerage agent. The debris in the senior pl sql developer was likely preventing proper contact with the [...] for any interim concerns. Sabina Toscano MS, [facility] Clinical Coordinator, Adult Audiology Program [place] [phone] (fax) AMPLIFICATION EQUIPMENT LIST: HEARING AID RIGHT LEFT Make/Model/Style Phonak Audeo M30 R Phonak Audeo M30 R Casing Color White White Serial Number [id number] Battery Size Rechargeable Rechargeable Invoice number/date [id number] 08/24/19 [id number] 08/24/19 Other Comments PROGRAM/SETTINGS Fitting Algorithm DSL [...] HELENA / Dome specifics Size 03 M sound assistant small vented dome Size 03 M sound assistant small vented dome Impression Date Invoice number/date Other Comments ACCESSORIES Make/Model (color) Serial Number Warranty date Invoice number/date Settings Other Comments documented in this encounter Plan of Treatment Upcoming Encounters Date Type Department Care Team (Late st Contact Info) Description 09/18/2024 10:20 AM EST Office Visit [place] [address] Sriram Contreras MD [facility] [place] [address] 10/31/2024 1:30 PM EST Office Visit Hematology/Oncology at [address] [phone] Dmitry Bhatti MD [facility] DR [place] [address] Ellen Mcrae APRN [facility] [place] [address] 10/31/2024 2:00 PM EST Infusion Hematology Oncology at [address] [phone] documented as of this encounter Visit Diagnoses Diagnosis Asymmetrical sensorineural hearing loss Sensorineural hearing loss, asymmetrical Fitting and adjustment of hearing aid documented in this encounter Care Teams Substitute Nurse Relationship Specialty Start Date End Date Paulino Finley MD [address] [place] [address] PCP - General Emergency Medicine 09/11/21 documented as of this encounter
--- OUTSIDE RECORDS SUMMARY | 2024-08-28 12:50 | XMS_ITS | Encounter Summary ---
[place] [address] Care Team Providers Care Technical Laboratory Asst Name Role Phone Jovon Sifuentes MD Primary Care Provider [phone] Reason for Referral * Diagnostic Test (Routine) - Closed Specialty Diagnoses / Procedures Referred By Contac t Referred To Contact Radiology Diagnoses Cancer of base of tongue Procedures CT Chest w Contrast Sriram Contreras MD [facility] [place] [address] [facility] [place] [address] Referral ID Status Reason Start Date Expiration Date V isits Requested Visits Authorized [id number] Closed Specialty Service Requested 06/29/2019 06/28/2020 1 1 * Diagnostic Test (Routine) - Closed Specialty Diagnoses / Procedures Referred By Contac t Referred To Contact Radiology Diagnoses Cancer of base of tongue Procedures CT Neck Soft Tissue w Contrast (Generic) Sriram Contreras MD [facility] [place] [address] [facility] [place] [address] Referral ID Status Reason Start Date Expiration Date V isits Requested Visits Authorized [id number] Closed Specialty Service Requested 06/29/2019 06/28/2020 1 1 Reason for Visit * Reason Comments Follow-up Encounter Details Date Type Department Care Team (Late st Contact Info) Description 06/29/2019 9:40 AM EDT Office [place] [address] Sriram Contreras MD [facility] [place] [address] Cancer of base of tongue Social History [...] MD - 06/29/2019 9:40 AM EDT . [facility] [place] AND NECK [...] CPAP G47.33, Z99.89 ??? Adult BMI 30+ [id number] PAST MEDICAL HISTORY Past Medical History: Diagnosis [...] the TelePack Unit and uploaded to the [employer] Laboratory Technician. Findings Nasal cavity Right nasal cavity examination [...] 10:20 AM EST Office [place] [address] Sriram Contreras MD [facility] [place] [address] 10/31/2024 1:30 PM EST Office Visit Hematology/Oncology at [address] [phone] Dmitry Bhatti MD [facility] DR HEMATOLOGY [place] [address] Ellen Mcrae APRN [facility] [place] [address] 10/31/2024 2:00 PM EST Infusion Hematology Oncology at [address] [phone] documented as of this encounter Results * [...] in the left kidney (stable datingback to 2016). Stable subcentimeter hypodensity in the [...] interpreted and the final report dictated in Amy [place]. Thank you for letting us participate in the care of this patient. Forquestions regarding this report, please contact the number below. 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
--- OUTSIDE RECORDS SUMMARY | 2024-08-28 12:50 | XMS_ITS | Encounter Summary ---
[place] [address] Care Team Providers Care Fire Equipment Operator Name Role Phone Paulino Finley MD Primary Care Provider [phone] Reason for Visit * Reason Onset Date Comments Prior Authorization 07/14/2023 Encounter Details Date Type Department Care Team (Late st Contact Info) Description 07/14/2023 Telephone [place]ology [place] [phone] [place] Prior Authorization Social History Tobacco [...] 2:11 PM EDT Procedure Prior Authorization Procedure/Cpt: 90174 Ct chest Rationale: C61, C79.51 Health Plan: BS Vt Authorizing Vendor: [employer] Service Order/ Authorization #: Effective Date: 07/14/2023 - 09/11/2023 Status: Approved Rendering Facility: [address] [place] [address] Phone: TIN: [phone] documented in this encounter Plan of Treatment Upcoming Encounters Date Type Department Care Team (Late st Contact Info) Description 09/18/2024 10:20 AM EST Office [place] [address] Sriram Contreras MD [facility] [place] [address] 10/31/2024 1:30 PM EST Office Visit Hematology/Oncology at [address] [phone] Dmitry Bhatti MD [facility] DR HEMATOLOGY [place] [address] Ellen Mcrae APRN [facility] [place] [address] 10/31/2024 2:00 PM EST Infusion Hematology Oncology at [address] [phone] documented as of this encounter Visit Diagnoses Not on filedocumented in this encounter Care Teams Fire Equipment Operator Relationship Specialty Start Date End Date Paulino Finley MD [address] [place] [address] PCP - General Emergency Medicine 09/11/21 documented as of this encounter
--- OUTSIDE RECORDS SUMMARY | 2024-08-28 12:50 | XMS_ITS | Encounter Summary ---
Author Organization [facility]ly [facility], [facility]–[address] [place] [address] Care Team Providers Care Skip Miner Blasting Name Role Phone Paulino Finley MD Primary Care Provider [phone] Encounter Details Date Type Department Care Team (Late st Contact Info) Description 07/13/2023 Notes [place] [address] Casi Dong Social History Tobacco Use Types [...] 10:20 AM EST Office [place] [address] Sriram Contreras MD [facility] [place] [address] 10/31/2024 1:30 PM EST Office Visit Hematology/Oncology at [address] [phone] Dmitry Bhatti MD [facility] DR [place] [address] Ellen Mcrae APRN [facility] [place] [address] 10/31/2024 2:00 PM EST Infusion Hematology Oncology at [address] [phone] documented as of this encounter Visit Diagnoses Not on filedocumented in this encounter Care Teams Skip Miner Blasting Relationship Specialty Start Date End Date Paulino Finley MD [address] [place] [address] PCP - General Emergency Medicine 09/11/21 documented as of this encounter
--- OUTSIDE RECORDS SUMMARY | 2024-08-28 12:50 | XMS_ITS | Encounter Summary ---
[place] [address] Care Team Providers Care Print Producer Name Role Phone Jovon Sifuentes MD Primary Care Provider [phone] Reason for Visit * Reason Onset Date Comments Appointment 07/04/2019 Encounter Details Date Type Department Care Team (Late st Contact Info) Description 07/04/2019 Telephone Audiology at [address] [phone] Nawaf Kendrick Appointment Social History Tobacco Use [...] Kendrick - 07/04/2019 8:08 AM EDT Jose Anaya Cristal needed to reschedule his HAF & HAC visits to September. documented in this encounter Plan of Treatment Upcoming Encounters Date Type Department Care Team (Late st Contact Info) Description 09/18/2024 10:20 AM EST Office [place] [address] Sriram Contreras MD [facility] [place] [address] 10/31/2024 1:30 PM EST Office Visit Hematology/Oncology at [address] [phone] Dmitry Bhatti MD [facility] DR HEMATOLOGY [place] [address] Ellen Mcrae APRN [facility] [place] [address] 10/31/2024 2:00 PM EST Infusion Hematology Oncology at [address] [phone] documented as of this encounter Visit Diagnoses Not on filedocumented in this encounter Care Teams Print Producer Relationship Specialty Start Date End Date Jovon Sifuentes MD [address] [place] [address] PCP - General 09/30/10 09/10/21 documented as of this encounter
--- OUTSIDE RECORDS SUMMARY | 2024-08-28 12:50 | XMS_ITS | Encounter Summary ---
Author Organization [facility] Address [facility] [place] [address] Care Team Providers Care Coating And Baking Operator Name Role Phone Jovon Sifuentes MD Primary Care Provider [phone] Reason for Visit * Reason Comments Follow-up Encounter Details Date Type Department Care Team (Late st Contact Info) Description 03/02/2019 10:20 AM EDT Office [place] [address] Sriram Contreras MD [facility] [place] [address] Cancer of base of tongue; Bilateral impacted [...] MD - 03/02/2019 10:20 AM EDT . [facility] OT[facility] HEAD AND NECK TUMOR CLINIC FOLLOW [...] CPAP G47.33, Z99.89 ??? Adult BMI 30+ [id number] PAST MEDICAL HISTORY Past Medical History: Diagnosis [...] larynx. The examination was recorded on the Prevently Unit and uploaded to the [employer] Rail Specialist. Findings Nasal cavity Right nasal cavity [...] 10:20 AM EST Office [place] [address] Sriram Contreras MD [facility] [place] [address] 10/31/2024 1:30 PM EST Office Visit Hematology/Oncology at [address] [phone] Dmitry Bhatti MD [facility] DR HEMATOLOGY [place] [address] Ellen Mcrae APRN [facility] [place] [address] 10/31/2024 2:00 PM EST Infusion Hematology Oncology at [address] [phone] documented as of this encounter Visit Diagnoses Diagnosis 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
--- OUTSIDE RECORDS SUMMARY | 2024-08-28 12:50 | XMS_ITS | Encounter Summary ---
Author Organization Formerly [facility] [place] [address] Care Team Providers Care Human Resources Psychologist Name Role Phone Paulino Finley MD Primary Care Provider Encounter Details Date Type Department Care Team (Late st Contact Info) Description 07/29/2023 Ancillary Procedure Radiology Library at [facility] [place] [address] Paulino Finley MD [address] [place] [address] Social History Tobacco Use Types Packs/Day Years [...] 10:20 AM EST Office [place] [address] Sriram Contreras MD [facility] [place] [address] 10/31/2024 1:30 PM EST Office Visit Hematology/Oncology at [address] [phone] Dmitry Bhatti MD [facility] DR HEMATOLOGY [place] [address] Ellen Mcrae APRN [facility] [place] [address] 10/31/2024 2:00 PM EST Infusion Hematology Oncology at [address] [phone] documented as of this encounter Procedures Procedure Name Priority Date/Time Associated Diagnosis Comments FILM LIBRARY STORAGE ONLY CT CHEST Routine 07/29/2023 12:00 AM EDT documented in this encounter Results * Film Library- Storage Only CT Chest (07/29/2023 12:00 AM EDT) Narrative [facility] - 07/30/2023 2:12 PM EDT This exam is auto-finalizing. It's purpose is for storage only. Paulino Finley MD IMG FILM LIBRARY ORD ERABLES [place], [place] documented in this encounter Visit Diagnoses Not on filedocumented in this encounter Care Teams Human Resources Psychologist Relationship Specialty Start Date End Date Paulino Finley MD [address] [place] [address] PCP - General Emergency Medicine 09/11/21 documented as of this encounter
--- OUTSIDE RECORDS SUMMARY | 2024-08-28 12:50 | XMS_ITS | Encounter Summary ---
[place] [address] Care Team Providers Care District Associate Judge Name Role Phone Jovon Sifuentes MD Primary Care Provider [phone] Encounter Details Date Type Department Care Team (Latest Contact Info) Description 09/25/2019 9:30 AM EST Office Visit Audiology at [address] [phone] Valerie Toscano, [facility] [place] [address] Sensorineural hearing loss, asymmetrical Social History Tobacco [...] with any interim concerns. Sabina Toscano MS, [facility]3]-A Clinical Coordinator, [place] [address] (fax) AMPLIFICATION EQUIPMENT LIST: HEARING AID RIGHT LEFT Make/Model/Style Phonak Audeo M30 R Phonak Audeo M30 R Casing Color White White Serial Number [id number] Battery Size Rechargeable Rechargeable Invoice number/date [id number] 08/24/19 [id number] 10/17/19 Other Comments PROGRAM/SETTINGS Fitting Algorithm DSL [...] HELENA / Dome specifics Size 03 M head waiter small vented dome Size 03 M head waiter small vented dome Impression Date Invoice number/date Other Comments ACCESSORIES Make/Model (color) Serial Number Warranty date Invoice number/date Settings Other Comments documented in this encounter Plan of Treatment Upcoming Encounters Date Type Department Care Team (Late st Contact Info) Description 09/18/2024 10:20 AM EST Office [place] [address] [facility] [place] [address] 10/31/2024 1:30 PM EST Office Visit Hematology/Oncology at [address] [phone] [facility] DR HEMATOLOGY [place] [address] [facility] [place] [address] 10/31/2024 2:00 PM EST Infusion Hematology Oncology at [address] [phone] documented as of this encounter Visit Diagnoses Diagnosis Sensorineural hearing loss, asymmetrical documented in this encounter Care Teams District Associate Judge Relationship Specialty Start Date End Date Jovon Sifuentes MD [address] [place] [address] PCP - General 09/30/10 09/10/21 documented as of this encounter
--- OUTSIDE RECORDS SUMMARY | 2024-08-28 12:50 | XMS_ITS | Encounter Summary ---
[place] [address] Care Team Providers Care Bisque Kiln Placer Name Role Phone Jovon Sifuentes MD Primary Care Provider Encounter Details Date Type Department Care Team (Late st Contact Info) Description 08/18/2019 Telephone [place] [phone] Angy Noriega Social History Tobacco Use Types [...] 10:20 AM EST Office Visit [place] [phone] Sriram Contreras MD [facility] [place] [address] 10/31/2024 1:30 PM EST Office Visit Hematology/Oncology at [address] [phone] Dmitry Bhatti MD [facility] DR [place] [address] Ellen Mcrae APRN [facility] [place] [address] 10/31/2024 2:00 PM EST Infusion Hematology Oncology at [address] [phone] documented as of this encounter Visit Diagnoses Not on filedocumented in this encounter Care Teams Bisque Kiln Placer Relationship Specialty Start Date End Date Jovon Sifuentes MD [address] [place] [address] PCP - General 09/30/10 09/10/21 documented as of this encounter
--- OUTSIDE RECORDS SUMMARY | 2024-08-28 12:50 | XMS_ITS | Encounter Summary ---
Author Organization [facility] [place] [address] Care Team Providers Care Jazz Musician Name Role Phone Paulino Finley MD Primary Care Provider [phone] Encounter Details Date Type Department Care Team (Latest Contact Info) Description 08/10/2023 9:00 AM EDT Clinical Support Hematology/Oncology at [address] [phone] Dmitry Bhatti MD [facility] DR HEMATOLOGY [place] [address] Dina Schrader APRN [facility] DR RADIATION [place] [address] Prostate cancer metastatic to multiple sites Social [...] on May 13. Pathology revealed prostatic adenocarcinoma [place] 5+4. Staging CT abdomen and pelvis and [...] fibrillation March 2017: noted in ED in [facility]. Previously noted to be paroxysmal. 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 He is to Briana for 40 yrs. 4 children - All live in different states - One Kathleen Enjoys raising Beef Cattle and doing Civil War and Living History and shoot Black powder/Antique firearms. He enjoys builiding Firearms/Blacksmithing - Charcoal, [place], etc. Social Determinants of Health Financial Resource [...] adenocarcinoma, involving 1 of 1 core. - [place] score 4 + 5 = 9 (grade group 5), tumor extent 1 mm (15% of core). - Perineural invasion is identified. C. PROSTATE, RIGHT MID LATERAL, NEEDLE CORE BIOPSY: - Prostatic adenocarcinoma, involving 1 of 1 core. - [place] score 5 + 4 = 9 (grade group 5), tumor extent 10 mm (80% of core). D. PROSTATE, RIGHT MID MEDIAL, NEEDLE CORE BIOPSY: - Prostatic adenocarcinoma, involving 1 of 1 core. - [place] score 4 + 5 = 9 (grade group 5), tumor extent 9 mm (80% of core). E. PROSTATE, RIGHT APEX LATERAL, NEEDLE CORE BIOPSY: - Prostatic adenocarcinoma, involving 1 of 1 core. - [place] score 5 + 4 = 9 (grade group 5), tumor extent 16 mm (100% of core). - Perineural invasion is identified. F. PROSTATE, RIGHT APEX MEDIAL, NEEDLE CORE BIOPSY: - Prostatic adenocarcinoma, involving 1 of 1 core. - [place] score 5 + 4 = 9 (grade group 5), tumor extent 15 mm (95% of core). - Perineural invasion is identified. G. PROSTATE, LEFT BASE LATERAL, NEEDLE CORE BIOPSY: - Atypical small acinar proliferation (LOLITA), highly suspicious for minute focus (0.1 mm) of prostatic adenocarcinoma. H. PROSTATE, LEFT BASE MEDIAL, NEEDLE CORE BIOPSY: - Prostatic adenocarcinoma, involving 1 of 1 core. - [place] score 4 + 3 = 7 (grade group 3), 70% Marko pattern 4, tumor extent 6 mm (40% of core). - Cribriform Marko pattern 4 is present. I. PROSTATE, LEFT MID LATERAL, NEEDLE CORE BIOPSY: - Prostatic adenocarcinoma, involving 1 of 1 core. - [place] score 3 + 5 = 8 (grade [...] Food and Drug Administration approved darolutamide (Nubeqa, Viscose Closures.) tablets in combination with docetaxel for adult patients with metastatic hormone-sensitive prostate cancer (mHSPC). Efficacy was based on ARASENS ([id number]), a randomized, multicenter, double- blind, placebo-controlled clinical trial in 1306 patients with mHSPC. Patients were randomized to receive either darolutamide 600 mg orally twice daily plus docetaxel 75 mg/m2 intravenously administered every 3 weeks forup to 6 cycles or docetaxel plus placebo. All patients received a gonadotropin-releasing hormone analog concurrently or had a bilateral orchiectomy. The primary efficacy measure was overall survival (OS). Jyfa-sc-vilk progression was an additional efficacy measure. Median OS was not reached (NR) (95% CI: NR, NR) in the darolutamide plus docetaxelarm and 48.9 months (95% CI: 44.4, NR) in docetaxel plus placebo arm (HR 0.68; 95% CI: 0.57, 0.80; p<0.0001). Treatment with darolutamide and docetaxel resulted in a statistically significant delay in zkle-ck-ryux progression (HR 0.79; 95% CI: 0.66, 0.95; [...] 10:20 AM EST Office [place] [address] Sriram Contreras MD [facility] DR [place] [address] 10/31/2024 1:30 PM EST Office Visit Hematology/Oncology at [address] [phone] Dmitry Bhatti MD [facility] DR HEMATOLOGY [place] [address] Ellen Mcrae APRN [facility] DR MEDICAL [place] [address] 10/31/2024 2:00 PM EST Infusion Hematology Oncology at [address] [phone] documented as of this encounter Visit Diagnoses Diagnosis Prostate cancer metastatic to multiple sites Malignant neoplasm of prostate documented in this encounter Care Teams Jazz Musician Relationship Specialty Start Date End Date Paulino Finley MD [address] [place] [address] PCP - General Emergency Medicine 09/11/21 documented as of this encounter
--- OUTSIDE RECORDS SUMMARY | 2024-08-28 12:50 | XMS_ITS | Encounter Summary ---
[place] [address] Care Team Providers Care Telephoto Engineer Name Role Phone Paulino Finley MD Primary Care Provider [phone] Encounter Details Date Type Department Care Team (Late st Contact Info) Description 02/18/2023 Telephone Audiology at [address] [phone] Ester Cardenas Social History Tobacco Use Types [...] 10:20 AM EST Office [place] [address] Sriram Contreras MD [facility] [place] [address] 10/31/2024 1:30 PM EST Office Visit Hematology/Oncology at [address] [phone] Dmitry Bhatti MD [facility] DR [place] [address] Ellen Mcrae APRN [facility] [place] [address] 10/31/2024 2:00 PM EST Infusion Hematology Oncology at [address] [phone] documented as of this encounter Visit Diagnoses Not on filedocumented in this encounter Care Teams Telephoto Engineer Relationship Specialty Start Date End Date Paulino Finley MD [address] [place] [address] PCP - General Emergency Medicine 09/11/21 documented as of this encounter
--- OUTSIDE RECORDS SUMMARY | 2024-08-28 12:50 | XMS_ITS | Encounter Summary ---
Author Organization [facility] [place] [address] Care Team Providers Care Compressor Mechanic Bus Name Role Phone Paulino Finley MD Primary Care Provider [phone] Encounter Details Date Type Department Care Team [...] 10:20 AM EST Office [place] [address] Sriram Contreras MD [facility] [place] [address] 10/31/2024 1:30 PM EST Office Visit Hematology/Oncology at [address] [phone] Dmitry Bhatti MD [facility] DR [place] [address] Ellen Mcrae APRN [facility] [place] [address] 10/31/2024 2:00 PM EST Infusion Hematology Oncology at [address] [phone] documented as of this encounter Visit Diagnoses Not on filedocumented in this encounter Care Teams Compressor Mechanic Bus Relationship Specialty Start Date End Date Paulino Finley MD [address] [place] [address] PCP - General Emergency Medicine 09/11/21 documented as of this encounter
--- OUTSIDE RECORDS SUMMARY | 2024-08-28 12:50 | XMS_ITS | Encounter Summary ---
Author Organization [facility] [place] [address] Care Team Providers Care Pulmonologist Intensivist Name Role Phone Jovon Sifuentes MD Primary Care Provider Encounter Details Date Type Department Care Team (Late Contact Info) Description 09/11/2019 Telephone [place] [phone] Nawaf Kendrick Social History Tobacco Use Types [...] 10:20 AM EST Office Visit [place] [address] [facility] [place] [address] 10/31/2024 1:30 PM EST Office Visit Hematology/Oncology at [address] [phone] [facility] DR HEMATOLOGY [place] [address] [facility] [place] [address] 10/31/2024 2:00 PM EST Infusion Hematology Oncology at [address] [phone] documented as of this encounter Visit Diagnoses Not on filedocumented in this encounter Care Teams Pulmonologist Intensivist Relationship Specialty Start Date End Date Jovon Sifuentes MD [address] [place] [address] PCP - General 09/30/10 09/10/21 documented as of this encounter
--- OUTSIDE RECORDS SUMMARY | 2024-08-28 12:50 | XMS_ITS | Encounter Summary ---
[place] [address] Care Team Providers Care Post Tensioning Ironworker Helper Name Role Phone Paulino Finley MD Primary Care Provider [phone] Encounter Details Date Type Department Care Team (Latest Contact Info) Description 07/08/2023 1:58 PM EDT - 07/08/2023 11:59 PM EDT Hospital Encounter [place] [address] Malignant neoplasm of prostate metastatic to bone [...] 10:20 AM EST Office [place] [address] Sriram Contreras MD [facility] [place] [address] 10/31/2024 1:30 PM EST Office Visit Hematology/Oncology at [address] [phone] Dmitry Bhatti MD [facility] DR [place] [address] Ellen Mcrae APRN [facility] [place] [address] 10/31/2024 2:00 PM EST Infusion Hematology Oncology at [address] [phone] documented as of this encounter Procedures Procedure Name Priority Date/Time Associated Diagnosis Comments HEMOGRAM Routine 07/08/2023 2:07 PM EDT Malignant neoplasm of prostate metastatic to bone DIFFERENTIAL, AUTOMATED Routine 07/08/2023 2:07 PM EDT Malignant neoplasm of prostate metastatic to bone CBC (WITH DIFF) Routine 07/08/2023 2:07 PM EDT Malignant neoplasm of prostate metastatic to bone TESTOSTERONE, TOTAL Routine 07/08/2023 2 :07 PM EDT Malignant neoplasm of prostate metastatic to bone PSA (ULTRASENSITIVE) Routine 07/08/2023 2:07 PM EDT Malignant neoplasm of prostate metastatic to bone COMPREHENSIVE METABOLIC PANEL Routine 07/08/2023 2:07 PM EDT Malignant neoplasm of prostate metastatic to bone documented in this encounter Results * Differential, Automated (07/08/2023 2:07 PM EDT) Neutrophil % 48.6 % [facility] Neutrophil Absolute 2.59 1.70 - 6.10 x10(3)/[facility] Lymph % 36.2 % [facility] Lymphocytes Abs 1.9 0.9 - 3.2 x10(3)/[facility] Monocyte % 10.1 % [facility] Monocyte Abs 0.5 0.3 - 0.9 x10(3)/[facility] Eos % 3.0 % [facility] Eosinophils Abs 0.2 0.0 - 0.4 x10(3)/[facility] Basophil % 1.9 % [facility] Baso Absolute 0.1 0.0 - 0.1 x10(3)/[facility] Immature Gran % 0.20 % [facility] Comment: Immature granulocytes(IG's)percentage and absolute count will include metamyelocytes, myelocytes, and promyelocytes. Blood smears from CBCs yielding IG's will be scanned manually for concordance. If this scan disagrees with the automated IG or if promyelocytes are noted, a manual differential will be performed. Immature Gran Absolute 0.01 0.00 - 0.04 x10(3)/[facility] Blood 07/08/2023 2:07 PM EDT 07/08/2023 2:10 PM EDT Narrative Resulting Agency Comment Spec In Lab Dmitry Bhatti MD HEMATOLOGY ORDERABLE S [facility] [place] [address] * (ABNORMAL) Hemogram (07/08/2023 2:07 PM EDT) White Blood Cell 5.3 4.0 - 9.5 x10(3)/mc L [facility] Red Blood Cell 4.85 4.58 - 5.54 x10(6)/mc L [facility] Hemoglobin 14.8 13.7 - 16.5 g/dL [facility] Hematocrit 44.9 40.5 - 48.5 % [facility] Mean Cell Volume 92.6 82.9 - 93.1 fL [facility] Mean Cell Hemoglobin 30.5 27.5 - 32.1 pg [facility] Mean Cell Hemoglobin Concentration 33.0 32.0 - 35.7 g/dL [facility] Platelet 161 145 - 357 x10(3)/mc L [facility] RDW Standard Deviation 47.9(H) 36.0 - 45.0 fL [facility] RDW coefficient of variation 14.0(H) 11.4 - 13.8 % [facility] Mean Platelet Volume 9.8 7.6 - 12.9 fL [facility] NRBC% auto 0.0 % [facility] NRBC Absolute 0.000 0.000 - 0.000 x10(3)/ L [facility] Blood 07/08/2023 2:07 PM EDT 07/08/2023 2:10 PM EDT Narrative Resulting Agency Comment Spec In Lab Dmitry Bhatti MD HEMATOLOGY ORDERABLE S [facility] [place] [address] * (ABNORMAL) PSA (Ultrasensitive) (07/08/2023 2:07 PM EDT) Prostate Specific Antigen (Ultrasensitive) 18.80(H) 0.00 - 4.00 ng/mL [facility] Comment: PLEASE NOTE: The above reference [...] In Lab Dmitry Bhatti MD CHEMISTRY ORDERABLES [facility] [address] [facility] [address] [place] [address] * (ABNORMAL) Comprehensive metabolic panel (non-fasting) (07/08/2023 2:07 PM EDT) Glucose 73 65 - 199 mg/dL [facility] Comment:Diabetes: >=200 mg/d L plus symptoms Blood Urea Nitrogen 16 10 - 20 mg/dL [facility] Creatinine 1.12 0.80 - 1.50 mg/dL [facility] Sodium 143 135 - 145 mmol/L [facility] Potassium 4.4 3.5 - 5.0 mmol/L [facility] Comment: Please note: ??Patients with WBC >100,000 may have falsely elevated Potassium levels. ??For accurate Potassium quantification in these patients send serum separator tube (gold top) for subsequent determinations. ??Contact the Clinical Chemistry Laboratory if there are any questions. Chloride 109(H) 98 - 107 mmol/L [facility] Carbon Dioxide 24 22 - 31 mmol/L [facility] Anion Gap 10 5 - 15 mmol/L [facility] Calcium 9.4 8.5 - 10.5 mg/dL [facility] Protein, Total 7.2 6.1 - 8.0 g/dL [facility] Albumin 4.2 3.2 - 5.2 g/dL [facility] Aspartate Aminotransferase 17 0 - 39 unit/L [facility] Alanine Aminotransferase 17 0 - 55 unit/L [facility] Alkaline Phosphatase 407(H) 40 - 130 unit/L [facility] Bilirubin, Total 0.2 0.2 - 1.3 mg/dL [facility] Est Glomerular Filtration Rate 69 >=60 mL/min/1. 73 m?? [facility] Comment: This patient's estimated GFR was [...] In Lab Dmitry Bhatti MD CHEMISTRY ORDERABLES [facility] [place] [address] * (ABNORMAL) Testosterone, total (07/08/2023 2:07 PM EDT) Testosterone <0.12(L) 1.93 - 7.40 ng/mL [facility] Comment: Pediatric Reference Ranges: ? Males [...] Stated reference ranges derived from review of [employer] Arabella Testosterone II 09/2022, v2.0 Blood 07/08/2023 2:07 PM EDT 07/08/2023 2:10 PM EDT Narrative Resulting Agency Comment Spec In Lab Dmitry Bhatti MD CHEMISTRY ORDERABLES Performing Organization Address City/State/[facility] Co de Phone Number [facility] [place] [address] documented in this encounter Visit Diagnoses Diagnosis Malignant neoplasm of prostate metastatic to bone Malignant neoplasm of prostate documented in this encounter Care Teams Post Tensioning Ironworker Helper Relationship Specialty Start Date End Date Paulino Finley MD [address] [place] [address] PCP - General Emergency Medicine 09/11/21 documented as of this encounter
--- OUTSIDE RECORDS SUMMARY | 2024-08-28 12:50 | XMS_ITS | Encounter Summary ---
Author Organization [facility] Address [facility] [place] [address] Care Team Providers Care Distribution Sales Representative Name Role Phone Jvoon Sifuentes MD Primary Care Provider [phone] Reason for Visit * Reason Comments Follow-up dysphagia Encounter Details Date Type Department Care Team (Late st Contact Info) Description 11/09/2019 10:20 AM EST Office [place] [address] Sriram Contreras MD [facility] [place] [address] Cancer of base of tongue; Sensorineural hearing [...] Contreras MD - 11/09/2019 10:20 AM EST [facility] OTOLARYNGOLOGY - HEAD AND NECK TUMOR CLINIC [...] is improving, needs liquid to help with stretcher drier operator foods. Denies choking events. No [...] CPAP G47.33, Z99.89 ??? Adult BMI 30+ [id number] PAST MEDICAL HISTORY Past Medical History: Diagnosis [...] the TelePack Unit and uploaded to the [employer] Ditching Machine Engineer. Findings Nasal cavity normal mucosa of septum [...] the final report dictated in DOUGLAS Reyes. ?? Thank you for letting us participate in the care of this patient. For questions regarding this report, please contact the number below. INATION: CT CHEST W CONTRAST ?? CLINICAL HISTORY: [...] this report, please contact the number below. SSMENT/RECOMMENDATIONS Jose Bee is a 68-year-old male here [...] Bee's care. Russ Connolly PA-C Pager: 202511/09/2019 [facility] Otolaryngology Attending Note Patient seen and examined [...] 10:20 AM EST Office [place] [address] Sriram Contreras MD [facility] [place] [address] 10/31/2024 1:30 PM EST Office Visit Hematology/Oncology at [address] [phone] Dmitry Bhatti MD [facility] HEMATOLOGY [place] [address] Ellen Mcrae APRN [facility] [place] [address] 10/31/2024 2:00 PM EST Infusion Hematology Oncology at [address] [phone] documented as of this encounter Visit Diagnoses Diagnosis 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
--- OUTSIDE RECORDS SUMMARY | 2024-08-28 12:50 | XMS_ITS | Encounter Summary ---
Author Organization [facility] Address [facility] [place] [address] Care Team Providers Care Pile Driving Superintendent Name Role Phone Paulino Finley MD Primary Care Provider [phone] Reason for Visit * Reason Comments Follow-up Has to Clear throat a lot Encounter Details Date Type Department Care Team (Late st Contact Info) Description 05/21/2022 11:40 AM EDT Office [place] [address] Sriram Contreras MD [facility] [place] [address] Cancer of base of tongue Social History [...] MD - 05/21/2022 11:40 AM EDT . [facility] OTOLARYNGOLOGY HEAD AND NECK TUMOR CLINIC FOLLOW [...] CPAP G47.33, Z99.89 ??? Adult BMI 30+ [id number] PAST MEDICAL HISTORY Past Medical History: Diagnosis [...] the TelePack Unit and uploaded to the [email or web address] Aboriginal Ceremonial Celebrant. Findings Nasal cavity Right nasal cavity examination [...] 10:20 AM EST Office [place] [address] Sriram Contreras MD [facility] [place] [address] 10/31/2024 1:30 PM EST Office Visit Hematology/Oncology at [address] [phone] Dmitry Bhatti MD [facility] DR [place] [address] Ellen Mcrae APRN [facility] [place] [address] 10/31/2024 2:00 PM EST Infusion Hematology Oncology at [address] [phone] documented as of this encounter Visit Diagnoses Diagnosis 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
--- OUTSIDE RECORDS SUMMARY | 2024-08-28 12:50 | XMS_ITS | Encounter Summary ---
[place] [address] Care Team Providers Care Radiation Physicist Name Role Phone Jovon Sifuentes MD Primary Care Provider Encounter Details Date Type Department Care Team (Latest Contact Info) Description 12/05/2020 9:30 AM EST Office Visit Audiology at [address] [address] Valerie Toscano, [facility] [place] [address] Sensorineural hearing loss, asymmetrical Social History Tobacco [...] was noted in the receivers and the hospice clinical supervisor wires were distorted. ?? Both instruments were [...] the likelihood of distorting and/or damaging the hospice clinical supervisor wires. ?? Verification of aided response was completed using SREM and d-jossue measures. Results were consistent with previous findings. Adjustments were not made. ?? An audiologic evaluation and hearing aid check-up are advised in one year. He knows to contact the clinic sooner for any interim concerns. Sabina Toscano MS, [facility] Clinical Coordinator, [place] [address] (fax) AMPLIFICATION EQUIPMENT LIST: HEARING AID RIGHT LEFT Make/Model/Style Phonak Audeo M30 R Phonak Audeo M30 R Casing Color White White Serial Number [id number] Battery Size Rechargeable Rechargeable Invoice number/date [id number] 08/24/19 [id number] 08/24/19 Other Comments PROGRAM/SETTINGS Fitting Algorithm DSL [...] HELENA / Dome specifics Size 03 M hospice clinical supervisor small vented dome Size 03 M hospice clinical supervisor small vented dome Impression Date Invoice number/date Other Comments ACCESSORIES Make/Model (color) Serial Number Warranty date Invoice number/date Settings Other Comments documented in this encounter Plan of Treatment Upcoming Encounters Date Type Department Care Team (Late st Contact Info) Description 09/18/2024 10:20 AM EST Office [place] [address] Sriram Contreras MD [facility] [place] [address] 10/31/2024 1:30 PM EST Office Visit Hematology/Oncology at [address] [phone] Dmitry Bhatti MD [facility] DR HEMATOLOGY [place] [address] Ellen Mcrae APRN [facility] [place] [address] 10/31/2024 2:00 PM EST Infusion Hematology Oncology at [address] [phone] documented as of this encounter Visit Diagnoses Diagnosis Sensorineural hearing loss, asymmetrical documented in this encounter Care Teams Radiation Physicist Relationship Specialty Start Date End Date Jovon Sifuentes MD [address] [place] [address] PCP - General 09/30/10 09/10/21 documented as of this encounter
--- OUTSIDE RECORDS SUMMARY | 2024-08-28 12:50 | XMS_ITS | Encounter Summary ---
[place] [address] Care Team Providers Care Band Aid Machine Operator Name Role Phone Jovon Sifuentes MD Primary Care Provider [phone] Reason for Visit * Reason Onset Date Comments Questions 05/20/2020 pre procedure ho ld of Eliquis Encounter Details Date Type Department Care Team (Late st Contact Info) Description 05/20/2020 Telephone Cardiology at [address] [phone] Flor Alba, RN Questions (pre procedure hold [...] at the [facility] (uri [phone]) requesting hold instructions for the Eliquis. He [...] 10:20 AM EST Office Visit [place] [address] Sriram Contreras MD [facility] [place] [address] 10/31/2024 1:30 PM EST Office Visit Hematology/Oncology at [address] [phone] Dmitry Bhatti MD [facility] DR HEMATOLOGY [place] [address] Ellen Mcrae APRN [facility] [place] [address] 10/31/2024 2:00 PM EST Infusion Hematology Oncology at [address] [phone] documented as of this encounter Visit Diagnoses Not on filedocumented in this encounter Care Teams Band Aid Machine Operator Relationship Specialty Start Date End Date Jovon Sifuentes MD [address] [place] [address] PCP - General 09/30/10 09/10/21 documented as of this encounter
--- OUTSIDE RECORDS SUMMARY | 2024-08-28 12:51 | XMS_ITS | Encounter Summary ---
[place] [address] Care Team Providers Care Furnace Mason Name Role Phone Jovon Sifuentes MD Primary Care Provider Encounter Details Date Type Department Care Team (Late st Contact Info) Description 08/19/2017 Telephone [place] [address] Vane Cadrona Social History Tobacco Use Types Packs/Day Years [...] Cardona - 08/19/2017 10:37 AM EDT Sent PROBATION AND PATROL AGENT referral fax to Roc Patrick at [phone]. Left message with Roc Patrick's office to confirm the fax and to ask if they needed additional information documented in this encounter Plan of Treatment Upcoming Encounters Date Type Department Care Team (Late st Contact Info) Description 09/18/2024 10:20 AM EST Office Visit [place] [address] Sriram Contreras MD [facility] [place] [address] 10/31/2024 1:30 PM EST Office Visit Hematology/Oncology at [address] [phone] Dmitry Bhatti MD [facility] DR HEMATOLOGY [place] [address] Ellen Mcrae APRN [facility] [place] [address] 10/31/2024 2:00 PM EST Infusion Hematology Oncology at [address] [phone] documented as of this encounter Visit Diagnoses Not on filedocumented in this encounter Care Teams Furnace Mason Relationship Specialty Start Date End Date Jovon Sifuentes MD [address] [place] [address] PCP - General 09/30/10 09/10/21 documented as of this encounter
--- OUTSIDE RECORDS SUMMARY | 2024-08-28 12:51 | XMS_ITS | Encounter Summary ---
Author Organization [facility] [place] [address] Care Team Providers Care Bill Recapitulation Clerk Name Role Phone Jovon Sifuentes MD Primary Care Provider Encounter Details Date Type Department Care Team (Late st Contact Info) Description 02/10/2018 10:20 AM EDT Office [place] [address] Sriram Contreras MD [facility] [place] [address] Cancer of base of tongue Social History [...] Contreras MD - 02/10/2018 10:20 AM EDT [facility] OTOL[facility]Y HEAD AND NECK TUMOR CLINIC FOLLOW [...] CPAP G47.33, Z99.89 ??? Adult BMI 30+ [id number] PAST MEDICAL HISTORY Past Medical History: Diagnosis [...] the TelePack Unit and uploaded to the [employer] Multiple Sclerosis Nurse. Findings Nasal cavity scope of the left [...] 10:20 AM EST Office [place] [address] Sriram Contreras MD [facility] [place] [address] 10/31/2024 1:30 PM EST Office Visit Hematology/Oncology at [address] [phone] Dmitry Bhatti MD [facility] HEMATOLOGY [place] [address] Ellen Mcrae APRN [facility] [place] [address] 10/31/2024 2:00 PM EST Infusion Hematology Oncology at [address] [phone] documented as of this encounter Visit Diagnoses Diagnosis 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
--- OUTSIDE RECORDS SUMMARY | 2024-08-28 12:51 | XMS_ITS | Encounter Summary ---
[place] [address] Care Team Providers Care Hair Mixer Name Role Phone Jovon Sifuentes MD Primary Care Provider Reason for Referral * Diagnostic Test (Routine) - Closed Specialty Diagnoses / Procedures Referred By Contac t Referred To Contact Radiology Diagnoses Cancer of base of tongue Procedures CT Chest w Contrast Sriram Contreras MD [facility] [place] [address] [facility] [place] [address] Referral ID Status Reason Start Date Expiration Date V isits Requested Visits Authorized [id number] Closed Specialty Service Requested 07/21/2018 09/18/2018 1 1 * Diagnostic Test (Routine) - Specialty Diagnoses / Procedures Referred By Contac t Referred To Contact Radiology Diagnoses Cancer of base of tongue Procedures CT Neck Soft Tissue w Contrast (Generic) Sriram Contreras MD [facility] [address] [facility] [place] [address] Referral ID Status Reason Start Date Expiration Date Visits Requested Visits Authorized [id number] Specialty Service Requested 07/21/2018 09/18/2018 1 1 Reason for Visit * Diagnostic Test (Routine) - Closed Specialty Diagnoses / Procedures Referred By uHma valladares Referred To Contact Radiology Diagnoses Cancer of base of tongue Procedures CT Chest w Contrast Sriram Contreras MD [facility] [place] [address] [facility] [place] [address] Referral ID Status Reason Start Date Expiration Date V isits Requested Visits Authorized [id number] Closed Specialty Service Requested 07/21/2018 09/18/2018 1 1 Encounter Details Date Type Department Care Team (Latest Contact Info) Description 08/08/2018 11:19 AM EDT - 08/08/2018 11:59 PM EDT [facility] [place] [address] Sriram Contreras MD [facility] DR [place] [address] Cancer of base of tongue [...] 10:20 AM EST Office [place] [address] Sriram Contreras MD [facility] [place] [address] 10/31/2024 1:30 PM EST Office Visit Hematology/Oncology at [address] [phone] Dmitry Bhatti MD [facility] DR HEMATOLOGY [place] [address] Ellen Mcrae APRN [facility] [place] [address] 10/31/2024 2:00 PM EST Infusion Hematology Oncology at [address] [phone] documented as of this encounter Procedures Procedure [...] upper lobe noncalcified pulmonary nodule (series 5 [id number]). There are two sub-5 mm nodules in [...] mLs documented in this encounter Care Teams Hair Mixer Relationship Specialty Start Date End Date Jovon Sifuentes MD [address] [place] [address] PCP - General 09/30/10 09/10/21 documented as of this encounter
--- OUTSIDE RECORDS SUMMARY | 2024-08-28 12:51 | XMS_ITS | Encounter Summary ---
[place] [address] Care Team Providers Care Servicing Rep Name Role Phone Jovon Sifuentes MD Primary Care Provider [phone] Encounter Details Date Type Department Care Team (Late st Contact Info) Description 07/04/2018 Telephone [place] [phone] [place] Social History Tobacco Use Types [...] 10:20 AM EST Office [place] [phone] Sriram Contreras MD [facility] [place] [address] 10/31/2024 1:30 PM EST Office Visit Hematology/Oncology at [address] [phone] Dmitry Bhatti MD [facility] DR HEMATOLOGY [place] [address] Ellen Mcrae APRN [facility] [place] [address] 10/31/2024 2:00 PM EST Infusion Hematology Oncology at [address] [phone] documented as of this encounter Visit Diagnoses Not on filedocumented in this encounter Care Teams Servicing Rep Relationship Specialty Start Date End Date Jovon Sifuentes MD [address] [place] [address] PCP - General 09/30/10 09/10/21 documented as of this encounter
--- OUTSIDE RECORDS SUMMARY | 2024-08-28 12:51 | XMS_ITS | Encounter Summary ---
[place] [address] Care Team Providers Care Control Electrician Name Role Phone Jovon Sifuentes MD Primary Care Provider [phone] Reason for Referral * Diagnostic Test (Routine) - Closed Specialty Diagnoses / Procedures Referred By Contac t Referred To Contact Radiology Diagnoses Cancer of base of tongue Procedures CT Chest w Contrast Sriram Contreras MD [facility] [place] [address] [facility] [place] [address] Referral ID Status Reason Start Date Expiration Date V isits Requested Visits Authorized [id number] Closed Specialty Service Requested 07/21/2018 09/18/2018 1 1 * Diagnostic Test (Routine) - Specialty Diagnoses / Procedures Referred By Contac t Referred To Contact Radiology Diagnoses Cancer of base of tongue Procedures CT Neck Soft Tissue w Contrast (Generic) Sriram Contreras MD [facility] [address] [facility] [place] [address] Referral ID Status Reason Start Date Expiration Date Visits Requested Visits Authorized [id number] Specialty Service Requested 07/21/2018 09/18/2018 1 1 Encounter Details Date Type Department Care Team (Late st Contact Info) Description 07/04/2018 Orders [place] [address] Sriram Contreras MD [facility] [address] Cancer of base of tongue Social History [...] 10:20 AM EST Office [place] [address] Sriram Contreras MD [facility] [address] 10/31/2024 1:30 PM EST Office Visit Hematology/Oncology at [address] [phone] Dmitry Bhatti MD [facility] DR [place] [address] Ellen Mcrae APRN [facility] [place] [address] 10/31/2024 2:00 PM EST Infusion Hematology Oncology at [address] [phone] documented as of this encounter Results * [...] upper lobe noncalcified pulmonary nodule (series 5 [id number]). There are two sub-5 mm nodules in [...] tongue documented in this encounter Care Teams Control Electrician Relationship Specialty Start Date End Date Jovon Sifuentes MD [address] [place] [address] PCP - General 09/30/10 09/10/21 documented as of this encounter
--- OUTSIDE RECORDS SUMMARY | 2024-08-28 12:51 | XMS_ITS | Encounter Summary ---
Author Organization [facility] [place] [address] Care Team Providers Care Floor Runner Name Role Phone Jovon Sifuentes MD Primary Care Provider [phone] Reason for Visit * Reason Comments Follow-up Larynx Cancer Encounter Details Date Type Department Care Team (Late st Contact Info) Description 12/16/2017 10:00 AM EST Office [place] [address] Sriram Contreras MD [facility] [place] [address] Cancer of base of tongue Social History [...] Contreras MD - 12/16/2017 10:00 AM EST [facility] OTOLARYNGOLOGY HEAD AND NECK TUMOR CLINIC FOLLOW [...] CPAP G47.33, Z99.89 ??? Adult BMI 30+ [id number] ??? Head and neck cancer C76.0 ??? [...] the TelePack Unit and uploaded to the [employer] Histology Technician. Findings Nasal cavity Normal Nasopharynx normal Oropharynx [...] 10:20 AM EST Office [place] [address] Sriram Contreras MD [facility] [place] [address] 10/31/2024 1:30 PM EST Office Visit Hematology/Oncology at [address] [phone] Dmitry Bhatti MD [facility] [place] [address] Ellen Mcrae APRN [facility] [place] [address] 10/31/2024 2:00 PM EST Infusion Hematology Oncology at [address] [phone] documented as of this encounter Visit Diagnoses Diagnosis 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
--- OUTSIDE RECORDS SUMMARY | 2024-08-28 12:51 | XMS_ITS | Encounter Summary ---
Author Organization [facility] [place] [address] Care Team Providers Care Zipper Trimmer Hand Name Role Phone Jovon Sifuentes MD Primary Care Provider [phone] Encounter Details Date Type Department Care Team (Late st Contact Info) Description 08/30/2017 1:30 PM EDT Office Visit Hematology [place] [address] Geovanna Deleon MD [facility] DR [place] [address] Recurrent pulmonary embolism Social History Tobacco Use [...] Deleon MD - 08/30/2017 1:30 PM EDT [facility] [place] [address] THROMBOSIS FOLLOW-UP DATE OF VISIT 08/30/2017 Patient [...] 3 years ) Alcohol 2-3 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/week 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 Fevers/chills/sweats No Recent infections [...] 10:20 AM EST Office Visit [place] [address] Sriram Contreras MD [facility] [place] [address] 10/31/2024 1:30 PM EST Office Visit Hematology/Oncology at [address] [phone] Dmitry Bhatti MD [facility] [place] [address] Ellen Mcrae APRN [facility] [place] [address] 10/31/2024 2:00 PM EST Infusion Hematology Oncology at [address] [phone] documented as of this encounter Visit Diagnoses Diagnosis Recurrent pulmonary embolism Other pulmonary embolism and infarction documented in this encounter Care Teams Zipper Trimmer Hand Relationship Specialty Start Date End Date Jovon Sifuentes MD [address] [place] [address] PCP - General 09/30/10 09/10/21 documented as of this encounter
--- OUTSIDE RECORDS SUMMARY | 2024-08-28 12:51 | XMS_ITS | Encounter Summary ---
Author Organization [facility] [place] [address] Care Team Providers Care Auxiliary Equipment Operator Name Role Phone Jovon Sifuentes MD Primary Care Provider Encounter Details Date Type Department Care Team (Latest Contact Info) Description 11/29/2017 Multidisciplinary Ca re Committee [place] [phone] Zafar Madera MD [facility] [place] [address] Social History Tobacco Use Types Packs/Day Years [...] 10:20 AM EST Office [place] [phone] Sriram Contreras MD [facility] [place] [address] 10/31/2024 1:30 PM EST Office Visit Hematology/Oncology at [address] [phone] Dmitry Bhatti MD [facility] [address] [place] [address] Ellen Mcrae APRN [facility] [place] [address] 10/31/2024 2:00 PM EST Infusion Hematology Oncology at [address] [phone] documented as of this encounter Visit Diagnoses Not on filedocumented in this encounter Care Teams Auxiliary Equipment Operator Relationship Specialty Start Date End Date Jovon Sifuentes MD [address] [place] [address] PCP - General 09/30/10 09/10/21 documented as of this encounter
--- OUTSIDE RECORDS SUMMARY | 2024-08-28 12:51 | XMS_ITS | Encounter Summary ---
[place] [address] Care Team Providers Care Transport Tech Name Role Phone Jovon Sifuentes MD Primary Care Provider Encounter Details Date Type Department Care Team (Late st Contact Info) Description 12/01/2017 Telephone [place] [phone] Dina Alonzo RN Social History Tobacco Use [...] 10:20 AM EST Office Visit [place] [address] Sriram Contreras MD [facility] [place] [address] 10/31/2024 1:30 PM EST Office Visit Hematology/Oncology at [address] [phone] Dmitry Bhatti MD [facility] HEMATOLOGY [place] [address] Ellen Mcrae APRN [facility] [place] [address] 10/31/2024 2:00 PM EST Infusion Hematology Oncology at [address] [phone] documented as of this encounter Visit Diagnoses Not on filedocumented in this encounter Care Teams Transport Tech Relationship Specialty Start Date End Date Jovon Sifuentes MD [address] [place] [address] PCP - General 09/30/10 09/10/21 documented as of this encounter
--- OUTSIDE RECORDS SUMMARY | 2024-08-28 12:51 | XMS_ITS | Encounter Summary ---
[place] [address] Care Team Providers Care Shift Boss Name Role Phone Jovon Sifuentes MD Primary Care Provider Reason for Referral * Diagnostic Test (Routine) - Closed Specialty Diagnoses / Procedures Referred By Huma valladares Referred To Contact Radiology Diagnoses Cancer of base of tongue Procedures MRI Soft Tissue Neck wwo Contrast MRI Soft Tissue Neck w Contrast Sriram Contreras MD [facility] [place] [address] [place] [address] Referral ID Status Reason Start Date Expiration Date V isits Requested Visits Authorized [id number] Closed Specialty Service Requested 11/05/2017 01/03/2018 1 1 Reason for Visit * Reason Comments Follow-up 6 WK FU. Cancer of b ase of tongue right. Mass Patient states that he has 2 lumps on his abdomen from the Lovenox shots. Encounter Details Date Type Department Care Team (Late Contact Info) Description 09/16/2017 1:00 PM EST Office Visit [place] [phone] [facility] [place] [address] Cancer of base of tongue [...] Contreras MD - 09/16/2017 1:00 PM EST [facility] [place] HEAD AND NECK TUMOR [...] CPAP G47.33, Z99.89 ??? Adult BMI 30+ [id number] ??? Head and neck cancer C76.0 ??? [...] the TelePack Unit and uploaded to the [employer] Day Treatment Clinician/Art Therapist. Findings Nasal cavity Normal Nasopharynx normal Oropharynx [...] 10:20 AM EST Office Visit [place] [address] [facility] [place] [address] 10/31/2024 1:30 PM EST Office Visit Hematology/Oncology at [address] [phone] [facility] [place] [address] 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
--- OUTSIDE RECORDS SUMMARY | 2024-08-28 12:51 | XMS_ITS | Encounter Summary ---
Author Organization [facility] [place] [address] Care Team Providers Care Multimedia Teacher Name Role Phone Jovon Sifuentes MD Primary Care Provider Encounter Details Date Type Department Care Team (Late st Contact Info) Description 01/25/2018 12:00 PM EDT Office Visit Hematology [place] [address] Geovanna Deleon MD [facility] [place] [address] Recurrent pulmonary embolism Social History Tobacco Use [...] Deleon MD - 01/25/2018 12:00 PM EDT [facility] Hemophilia and Thrombosis Center [place], [place] [address] THROMBOSIS FOLLOW-UP DATE OF VISIT 01/25/2018 Patient Jose Bee 1950 REFERRING PHYSICIAN Zaafr Madera MD PRIMARY CARE PHYSICIAN Jovon Sifuentes [...] history of stroke. 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 I just want to make surethat he [...] - I will contact Dr. Lr, his director of accounts payable and make sure that he agrees that he can come off anticoagulation and does not require it for his PAF - if he can come off anticoagulation, then he will need to stay on low dose aspirin long-term for his PAF. Jose Bee had the opportunity to ask questions and indicated that all his questions were answered to his satisfaction. I will call him after discussing with his director of accounts payable. Geovanna Deleon MD Addendum 02/02/2018 I have [...] AM EST Office Visit [place] [address] Sriram Contreras MD [facility] [place] [address] 10/31/2024 1:30 PM EST Office Visit Hematology/Oncology at [address] [phone] Dmitry Bhatti MD [facility] [place] [address] Ellen Mcrae APRN [facility] [place] [address] 10/31/2024 2:00 PM EST Infusion Hematology Oncology at [address] [phone] documented as of this encounter Visit Diagnoses Diagnosis Recurrent pulmonary embolism Other pulmonary embolism and infarction documented in this encounter Care Teams Multimedia Teacher Relationship Specialty Start Date End Date Jovon Sifuentes MD [address] [place] [address] PCP - General 09/30/10 09/10/21 documented as of this encounter
--- OUTSIDE RECORDS SUMMARY | 2024-08-28 12:51 | XMS_ITS | Encounter Summary ---
Author Organization [facility] [place] [address] Care Team Providers Care Filters Assembler Name Role Phone Jovon Sifuentes MD Primary Care Provider [phone] Reason for Referral * Speech Therapy (Routine) - Specialty Diagnoses / Procedures Referred By Huma valladares Referred To Contact Speech Pathology Diagnoses Dysphagia, unspecified type Hilton Cheney PA [facility] [place] [address] Roc Patrick, SIGNALS COLLECTION TECHNICIAN [address] [place] [id number] Referral ID Status Reason Start Date Expiration Date V isits Requested Visits Authorized [id number] Evaluate and Treat 08/05/2017 02/01/2018 12 12 Reason for Visit * Reason Comments Other hospital check 07-29 Encounter Details Date Type Department Care Team (Late st Contact Info) Description 08/05/2017 3:30 PM EDT Office [place] [address] Hilton Cheney PA [facility] [place] [address] Dysphagia, unspecified type; Cancer of base of [...] gargles 3-4 times per day. Referral to SIGNALS COLLECTION TECHNICIAN in [facility]. Nothing in the ears until next visit. Return to clinic in about 6 weeks. documented in this encounter Progress Notes * Hilton Cheney PA - 08/05/2017 3:30 PM EDT [facility] Follow up [...] - Primary * Selvin Kaye MD - Resident-Neonatal Doctor * Hilton Cheney PA - Physician Mixing Machine Tender Cork Gasket Preoperative diagnosis: Right tongue base cancer Postoperative [...] go back on Eliquis. Needs referral to SIGNALS COLLECTION TECHNICIAN in [facility]. Head and neck symptom survey >Symptom [...] Date ??? ACHILLES TENDON SURGERY Right 1996 [facility] ??? KNEE ARTHROSCOPY christelle. [facility] ??? PRO BIOPSY OROPHARYNX N/A 05/24/2017 BIOPSY, OROPHARYNX (WRVU 1.44) performed by Zafar Madera MD at [facility] OR ??? PRO LARYNGOSCOPY, DIRCT, OP SCOPE, BIOPSY N/A 05/24/2017 LARYNGOSCOPY, MICROSCOPE, WITH BIOPSY (WRVU 3.55) performed by Zafar Madera MD at [facility] OR ??? PRO LARYNGOSCOPY, DIRECT, DX, OP MICROSCOP N/A 07/16/2017 LARYNGOSCOPY, WITH MICROSCOPE (WRVU 2.57) performed by Sriram Contreras MD at [facility] OR ??? PRO PART EXC TONGUE, UNILAT RAD NECK Right 07/13/2017 @GLOSSECTOMY, PARTIAL,WITH UNILATERAL RADICAL NECK DISSECTION (WRVU 30.14) performed by Sriram Contreras MD at [facility] ??? PRO PARTIAL REMOVAL OF PHARYNX N/A 07/13/2017 PHARYNGECTOMY, LIMITED (WRVU 19.13) performed by Sriram Contreras MD at [facility] ??? PRO UNLISTED PROCEDURE LARYNX N/A 07/13/2017 LARYNGOSCOPY, MICRO, LASER EXCISION (WRVU 12.14) performed by Sriram Contreras MD at [facility] ??? QUADRACEPS TENDON REPAIR Right 04/2016 [facility] ??? TONSILLECTOMY FAMILY HISTORY No [...] and will refer per his request for SIGNALS COLLECTION TECHNICIAN visits with Roc Patrick in [facility]. Discussed trying salt- water gargles to help [...] gargles 3-4 times per day. Referral to SIGNALS COLLECTION TECHNICIAN in [facility]. Nothing in the ears until next visit. Return to clinic in about 6 weeks. Hilton Cheney PA-C 08/05/2017 [place], [place] [address] Office documented in this encounter Plan of Treatment Upcoming Encounters Date Type Department Care Team (Late st Contact Info) Description 09/18/2024 10:20 AM EST Office [place] [address] Sriram Contreras MD [facility] [place] [address] 10/31/2024 1:30 PM EST Office Visit Hematology/Oncology at [address] [phone] Dmitry Bhatti MD [facility] DR [place] [address] Ellen Mcrae APRN [facility] [place] [address] 10/31/2024 2:00 PM EST Infusion Hematology Oncology at [address] [phone] Scheduled Referrals Name Type Priority Associated Diagnoses Orde r Schedule Referral to Speech Therapy Outpatient Referral Routine Dysphagia, unspecified type Ordered: 08/05/2017 documented as of this encounter Visit Diagnoses Diagnosis Dysphagia, unspecified type 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
--- OUTSIDE RECORDS SUMMARY | 2024-08-28 12:51 | XMS_ITS | Encounter Summary ---
Author Organization [facility] [place] [address] Care Team Providers Care Construction Area Manager Name Role Phone Jovon Sifuentes MD Primary Care Provider [phone] Encounter Details Date Type Department Care Team (Late st Contact Info) Description 08/07/2017 Telephone [place] [address] Hilton Cheney PA [facility] [place] [address] Social History Tobacco Use Types Packs/Day Years [...] 10:20 AM EST Office [place] [address] Sriram Contreras MD [facility] [place] [address] 10/31/2024 1:30 PM EST Office Visit Hematology/Oncology at [address] [phone] Dmitry Bhatti MD [facility] DR HEMATOLOGY [place] [address] Ellen Mcrae APRN [facility] [place] [address] 10/31/2024 2:00 PM EST Infusion Hematology Oncology at [address] [phone] documented as of this encounter Visit Diagnoses Not on filedocumented in this encounter Care Teams Construction Area Manager Relationship Specialty Start Date End Date Jovon Sifuentes MD [address] [place] [address] PCP - General 09/30/10 09/10/21 documented as of this encounter
--- OUTSIDE RECORDS SUMMARY | 2024-08-28 12:51 | XMS_ITS | Encounter Summary ---
[place] [address] Care Team Providers Care Mophead Sewer Name Role Phone Jovon Sifuentes MD Primary Care Provider Reason for Referral * Diagnostic Test (Routine) - Closed Specialty Diagnoses / Procedures Referred By Huma t Referred To Contact Radiology Diagnoses Cancer of base of tongue Procedures MRI Soft Tissue Neck wwo Contrast MRI Soft Tissue Neck w Contrast Sriram Contreras MD [facility] [place] [address] [place] [address] Referral ID Status Reason Start Date Expiration Date V isits Requested Visits Authorized [id number] Closed Specialty Service Requested 11/05/2017 01/03/2018 1 1 Reason for Visit * Diagnostic Test (Routine) - Closed Specialty Diagnoses / Procedures Referred By Huma valladares Referred To Contact Radiology Diagnoses Cancer of base of tongue Procedures MRI Soft Tissue Neck wwo Contrast MRI Soft Tissue Neck w Contrast Sriram Contreras MD [facility] DR [place] [address] [place] [address] Referral ID Status Reason Start Date Expiration Date V isits Requested Visits Authorized [id number] Closed Specialty Service Requested 11/05/2017 01/03/2018 1 1 Encounter Details Date Type Department Care Team (Latest Contact Info) Description 11/11/2017 12:23 PM EST - 11/11/2017 11:59 PM EST Hospital Encounter MRI at [facility] [place] [address] Sriram Contreras MD [facility] [place] [address] Cancer of base of tongue Discharge Disposition: [...] 10:20 AM EST Office [place] [address] Sriram Contreras MD [facility] [place] [address] 10/31/2024 1:30 PM EST Office Visit Hematology/Oncology at [address] [phone] Dmitry Bhatti MD [facility] DR HEMATOLOGY [place] [address] Ellen Mcrae APRN [facility] [place] [address] 10/31/2024 2:00 PM EST Infusion Hematology Oncology at [address] [phone] documented as of this encounter Procedures Procedure [...] mLs documented in this encounter Care Teams Mophead Sewer Relationship Specialty Start Date End Date Jovon Sifuentes MD [address] [place] [address] PCP - General 09/30/10 09/10/21 documented as of this encounter
--- OUTSIDE RECORDS SUMMARY | 2024-08-28 12:51 | XMS_ITS | Encounter Summary ---
Author Organization [facility] [place] [address] Care Team Providers Care Shear Assembler Name Role Phone Jovon Sifuentes MD Primary Care Provider [phone] Reason for Visit * Reason Comments Follow-up Patient feels he nee ds to clear his throat a lot due to post nasal drip. Swallowing continues to improve. Encounter Details Date Type Department Care Team (Late st Contact Info) Description 08/08/2018 1:00 PM EDT Office Visit [place] [address] Sriram Contreras MD [facility] [place] [address] Cancer of base of tongue Social History [...] MD - 08/08/2018 1:00 PM EDT . [facility] FOLLOW [...] CPAP G47.33, Z99.89 ??? Adult BMI 30+ [id number] PAST MEDICAL HISTORY Past Medical History: Diagnosis [...] the TelePack Unit and uploaded to the [employer]. Findings Nasal cavity Right nasal cavity examination [...] 10:20 AM EST Office Visit [place] [address] Sriram Conrteras MD [facility] [place] [address] 10/31/2024 1:30 PM EST Office Visit Hematology/Oncology at [address] [phone] Dmitry Bhatti MD [facility] DR [place] [address] Ellen Mcrae APRN [facility] [place] [address] 10/31/2024 2:00 PM EST Infusion Hematology Oncology at [address] [phone] documented as of this encounter Visit Diagnoses Diagnosis 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
--- OUTSIDE RECORDS SUMMARY | 2024-08-28 12:51 | XMS_ITS | Encounter Summary ---
Author Organization [facility] [place] [address] Care Team Providers Care Terminal Manager Name Role Phone Jovon Sifuentes MD Primary Care Provider [phone] Reason for Visit * Reason Comments Follow-up Encounter Details Date Type Department Care Team (Late st Contact Info) Description 11/11/2017 3:00 PM EST Office [place] [address] Sriram Contreras MD [facility] [address] Larynx cancer Social History Tobacco Use Types [...] Interiano MD - 11/11/2017 3:00 PM EST [facility] [place] FOLLOW [...] CPAP G47.33, Z99.89 ??? Adult BMI 30+ [id number] ??? Head and neck cancer C76.0 ??? [...] the TelePack Unit and uploaded to the [employer] Import/Export Freight Forwarder. Findings Nasal cavity Normal Nasopharynx normal Oropharynx [...] 10:20 AM EST Office [place] [address] Sriram Contreras MD [facility] [address] 10/31/2024 1:30 PM EST Office Visit Hematology/Oncology at [address] [phone] Dmitry Bhatti MD [facility] DR HEMATOLOGY [place] [address] Ellen Mcrae APRN [facility] [place] [address] 10/31/2024 2:00 PM EST Infusion Hematology Oncology at [address] [phone] documented as of this encounter Visit Diagnoses Diagnosis Larynx cancer Malignant neoplasm of larynx, unspecified site documented in this encounter Care Teams Terminal Manager Relationship Specialty Start Date End Date Jovon Sifuentes MD [address] [place] [address] PCP - General 09/30/10 09/10/21 documented as of this encounter
--- OUTSIDE RECORDS SUMMARY | 2024-08-28 12:51 | XMS_ITS | Encounter Summary ---
[place] [address] Care Team Providers Care Supportability Engineer Name Role Phone Jovon Sifuentes MD Primary Care Provider [phone] Encounter Details Date Type Department Care Team (Late st Contact Info) Description 07/05/2018 Telephone [place] [phone] [place] Social History Tobacco Use Types [...] 10:20 AM EST Office [place] [phone] Sriram Contreras MD [facility] [place] [address] 10/31/2024 1:30 PM EST Office Visit Hematology/Oncology at [address] [phone] Dmitry Bhatti MD [facility] DR [place] [address] Ellen Mcrae APRN [facility] [place] [address] 10/31/2024 2:00 PM EST Infusion Hematology Oncology at [address] [phone] documented as of this encounter Visit Diagnoses Not on filedocumented in this encounter Care Teams Supportability Engineer Relationship Specialty Start Date End Date Jovon Sifuentes MD [address] [place] [address] PCP - General 09/30/10 09/10/21 documented as of this encounter
--- OUTSIDE RECORDS SUMMARY | 2024-08-28 12:51 | XMS_ITS | Encounter Summary ---
[place] [address] Care Team Providers Care Animal Science Professor Name Role Phone Jovon Sifuentes MD Primary Care Provider Encounter Details Date Type Department Care Team (Late Contact Info) Description 07/29/2017 Telephone [place] [phone] Vane Cardona Social History Tobacco Use Types [...] 10:20 AM EST Office [place] [phone] Sriram Contreras MD [facility] [place] [address] 10/31/2024 1:30 PM EST Office Visit Hematology/Oncology at [address] [phone] Dmitry Bhatti MD [facility] DR HEMATOLOGY [place] [address] Ellen Mcrae APRN [facility] [place] [address] 10/31/2024 2:00 PM EST Infusion Hematology Oncology at [address] [phone] documented as of this encounter Visit Diagnoses Not on filedocumented in this encounter Care Teams Animal Science Professor Relationship Specialty Start Date End Date Jovon Sifuentes MD [address] [place] [address] PCP - General 09/30/10 09/10/21 documented as of this encounter
--- OUTSIDE RECORDS SUMMARY | 2024-08-28 12:51 | XMS_ITS | Encounter Summary ---
Author Organization [facility] [place] [address] Care Team Providers Care Machine Icer Name Role Phone Jovon Sifuentes MD Primary Care Provider Encounter Details Date Type Department Care Team (Late st Contact Info) Description 09/20/2017 Telephone Hematology [place] [address] Geovanna Deleon MD [facility] DR [place] [address] Social History Tobacco Use Types Packs/Day Years [...] 10:20 AM EST Office Visit [place] [address] Sriram Contreras MD [facility] [place] [address] 10/31/2024 1:30 PM EST Office Visit Hematology/Oncology at [address] [phone] Dmitry Bhatti MD [facility] DR [place] [address] Ellen Mcrae APRN [facility] [place] [address] 10/31/2024 2:00 PM EST Infusion Hematology Oncology at [address] [phone] documented as of this encounter Visit Diagnoses Not on filedocumented in this encounter Care Teams Machine Icer Relationship Specialty Start Date End Date Jovon Sifuentes MD [address] [place] [address] PCP - General 09/30/10 09/10/21 documented as of this encounter
--- OUTSIDE RECORDS SUMMARY | 2024-08-28 12:51 | XMS_ITS | Encounter Summary ---
Author Organization [facility] [place] [address] Care Team Providers Care Synthetic Gem Press Operator Name Role Phone Jovon Sifuentes MD Primary Care Provider Encounter Details Date Type Department Care Team (Late st Contact Info) Description 12/02/2017 Telephone [place] [address] Sriram Contreras MD [facility] [place] [address] Social History Tobacco Use Types Packs/Day Years [...] 10:20 AM EST Office [place] [address] Sriram Conterras MD [facility] [place] [address] 10/31/2024 1:30 PM EST Office Visit Hematology/Oncology at [address] [phone] Dmitry Bhatti MD [facility] DR [place] [address] Ellen Mcrae APRN [facility] [place] [address] 10/31/2024 2:00 PM EST Infusion Hematology Oncology at [address] [phone] documented as of this encounter Visit Diagnoses Not on filedocumented in this encounter Care Teams Synthetic Gem Press Operator Relationship Specialty Start Date End Date Jovon Sifuentes MD [address] [place] [address] PCP - General 09/30/10 09/10/21 documented as of this encounter
--- OUTSIDE RECORDS SUMMARY | 2024-08-28 12:51 | XMS_ITS | Encounter Summary ---
[place] [address] Care Team Providers Care Under Seal Operator Name Role Phone Jovon Sifuentes MD Primary Care Provider Encounter Details Date Type Department Care Team (Latest Contact Info) Description 08/03/2017 Multidisciplinary Ca re Committee [place] [address] Zafar Madera MD [facility] [place] [address] Social History Tobacco Use Types Packs/Day Years [...] biopsy. Developed acute PE and transferred to [facility] [place] for management. Staging PET-CT showed possible uptake [...] 10:20 AM EST Office Visit [place] [address] Sriram Contreras MD [facility] [place] [address] 10/31/2024 1:30 PM EST Office Visit Hematology/Oncology at [address] [phone] Dmitry Bhatti MD [facility] DR HEMATOLOGY [place] [address] Ellen Mcrae APRN [facility] [place] [address] 10/31/2024 2:00 PM EST Infusion Hematology Oncology at [address] [phone] documented as of this encounter Visit Diagnoses Not on filedocumented in this encounter Care Teams Under Seal Operator Relationship Specialty Start Date End Date Jovon Sifuentes MD [address] [place] [address] PCP - General 09/30/10 09/10/21 documented as of this encounter
--- OUTSIDE RECORDS SUMMARY | 2024-08-28 12:51 | XMS_ITS | Encounter Summary ---
Author Organization [facility] Address [facility] [address] Care Team Providers Care Belly Packer Name Role Phone Jovon Sifuentes MD Primary Care Provider [phone] Reason for Visit * Reason Comments Follow-up contiues with some n sheryl and throat swelling, continues to clear his throat alot, using Mucinex with some effect. tried claritin yesterday it worked a little better. Encounter Details Date Type Department Care Team (Late st Contact Info) Description 04/14/2018 10:15 AM EDT Office [place] [phone] Sriram Contreras MD [facility] [place] [address] Cancer of base of tongue; Allergic rhinitis, [...] MD - 04/14/2018 10:[address] [facility] OTOLARYNGOLOGY HEAD AND NECK TUMOR [facility]INIC FOLLOW [...] CPAP G47.33, Z99.89 ??? Adult BMI 30+ [id number] PAST MEDICAL HISTORY Past Medical History: Diagnosis [...] the [employer] and uploaded to the [employer]. Findings Nasal cavity Right nasal cavity examination [...] 10:20 AM EST Office [place] [address] Sriram Contreras MD [facility] [place] [address] 10/31/2024 1:30 PM EST Office Visit Hematology/Oncology at [address] [phone] Dmitry Bhatti MD [facility] [place] [address] Ellen Mcrae APRN [facility] [place] [address] 10/31/2024 2:00 PM EST Infusion Hematology Oncology at [address] [phone] documented as of this encounter Visit Diagnoses Diagnosis 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
--- OUTSIDE RECORDS SUMMARY | 2024-08-28 12:53 | XMS_ITS | Encounter Summary ---
Author Organization Formerly [facility] Address [facility] [place] [address] Care Team Providers Care Media Account Executive Name Role Phone Jovon Sifuentes MD Primary Care Provider [phone] Reason for Visit * Auth/Cert Specialty Diagnoses [...] Expiration Date Visits Re quested Visits Authorized [id number] 1 1 Encounter Details Date Type Department Care Team (Latest Contact Info) Description 07/13/2017 6:04 AM EDT - 07/29/2017 1:35 PM EDT Hospital Encounter 5 [place] [id number] Sriram Contreras MD [facility] [place] [address] Persistent atrial fibrillation; QT prolongation; Other pulmonary embolism without acute cor pulmonale Discharge Disposition: Nursing Home Facility Social History Tobacco Use Types Packs/Day [...] bilateral cervical nodes: Reason for Admission: Jose Lwas??is a 66 y.o.??male??presented with exophytic tumor T2N0M0 [...] staging exam TECHNIQUE: Following IV injection of 18-gexyuc-0-deoxyglucose (FDG) a standard uptake of approximately 60 [...] Thank you for referring this patient to [facility]. I have personally reviewed the image(s) and the residents interpretation and agree with the findings, Lizy Lorin at 06/17/2017 3:54 PM Xr Chest Pa [...] -You can reach the ENT clinic at [phone] for appointment questions. -The ENT triage nurse is available at [phone] -For urgent issues during evenings and weekends the ENT resident child protection specialist can be reached through [facility] staple processing machine operator at [phone] Follow Up: You will need to follow [...] Geovanna Deleon MD Hematology and Oncology at [place] [phone] General Instructions None __ Primary Care Doctor: Jovon Sifuentes MD [phone] Signed: Celso Mejía MD 07/29/2017 documented in [...] -You can reach the ENT clinic at [phone] for appointment questions. -The ENT triage nurse is available at [phone] -For urgent issues during evenings and weekends the ENT resident child protection specialist can be reached through [facility] staple processing machine operator at [phone] Follow Up: You will need to follow [...] Geovanna Deleon MD Hematology and Oncology at [place] [phone] documented in this encounter Medications at Time [...] att. providers found Jose Laws discharged to [facility] by private car with Spouse. All belongings sent with patient. DONNA removed, incision healing well, no significant drainage, no dehiscence, no significant erythema, skin free from pressure ulcers. Discharge instructions given to . Report called to Vidhi at [facility] @ [phone]. * Alexus Soler RN - 07/29/2017 11:38 AM EDT Patient accepts bed at [facility]. Spoke with Patient and in regards to transportation. will provide transportation to [facility]. Adrienne Soler RN Care Management * Lexy Scott - 07/29/2017 10:57 AM EDT Office of Care Management/Wet Press Tender Patient Name: Jose Laws : 1950 Patient has been offered a Nursing Home Facility bed at [facility]. The patient will be transported by private transportation. No MD to MD report necessary Please call Nursing Report to , ask for Vidhi. Info to accompany patient: Narcotic Prescriptions Copies of Medication Administration Records and IV sheets for past 10 days. Plan: Wet Press Tender will be available to the patient and Auto Damage Trainee-RN and/or Social Workerfor further assistance. Patient will be discharged to: [facility] [address] [place] [address] Lexy Scott, Wet Press Tender * Luana Henry RN - 07/29/2017 7:00 AM EDT Patient arrived via bed to rm 514, oob sitting in chair. Aox4, calling . Denies pain. Plan for discharge today pending bed. 1 assist to bathroom. Voids with out difficulty. [place] to floor and call srinivasan system. Would like to take a shower and have his CPAP cleaned. Will report to oncoming RN/CONCEPCION. * Kayley Chris RCP - 07/29/2017 4:40 AM EDT Patient was compliant with home CPAP usage tonight. * Anay Diallo RN - 07/28/2017 3:40 PM EDT Auto Damage Trainee Follow Up Note Patient plan of care discussed in multidisciplinary rounds. Met with patient and to assess continuing care and discharge needs. Continues to require hospitalization for Head and neck cancer. Discharge plan to snf when medically ready. Auto Damage Trainee to follow with team and family to assist with discharge needs when patient ready for discharge. Anay Diallo RN Case Management for [facility] pgr [phone] * Celso Mejía MD - [...] Mejía MD, PGY1 07/28/17 7:05 AM Pager: [phone] * Anay Diallo RN - 07/27/2017 2:44 PM EDT Based on discussions with the multi-disciplinary healthcare team, the patient would benefit from skilled level of care at discharge. ?? I have met with the patient/strategic partnership representative to discuss discharge planning needs. I have provided the [facility], Office of Care Management letter from the Nursing Consultant pertaining to rehab referrals. I have also provided a letter describing our affiliations within the [facility] and educated them about their right to choose where referrals are placed. ?? I reviewed the different levels of rehab including SNF, swing, acute and LTAC with the patient/strategic partnership representative. ?? The patient/strategic partnership representative has been provided a list of facilities within their preferred geographic area. ?? I have requested that the patient/strategic partnership representative provide at least three choices for referral. ?? The patient/strategic partnership representative have requested referrals to: 1. [facility] ?? PHONE: [phone] FAX: [phone].. 2. [facility] [address] [place] [address] ?? 3. [facility] (Swing) [address] [place] [id number] ? Expected date of discharge: TBD Note routed to Wet Press Tender who will communicate referrals to facilities and [...] Mejía MD, PGY1 07/27/17 7:01 AM Pager: [phone] * Collette Schultz - 07/26/2017 8:21 PM EDT Zach Encounter Note Patient Name: Jose Laws : [id number] MR#: [id number] Admit Date: 07/13/2017 6:04 AM Hospital Day 13 days Narrative: Attempted return visit - pt sleeping. Time in Direct Care: 0 min. Collette Schultz 07/26/2017 * Collette Schultz - 07/26/2017 3:00 PM EDT Agronomist Encounter Note Patient Name: Jose Laws : [id number] MR#: [id number] Admit Date: 07/13/2017 6:04 AM Hospital Day 13 days Narrative: Supervisor Cutting And Boning visit per Consult Order Assessment: Pt spoke [...] Diallo RN - 07/26/2017 2:30 PM EDT Auto Damage Trainee Follow Up Note Patient plan of care discussed in multidisciplinary rounds. Met with patient to assess continuing care and discharge needs. Continues to require hospitalization for Head and neck cancer. Discharge plan uncertain at this time. Auto Damage Trainee to follow with team and family to assist with discharge needs when patient ready for discharge. Anay Diallo RN Case Management for [facility] pgr [phone] * Briana Goel RN - 07/26/2017 2:29 PM EDT [facility] Interventional Radiology ? Interventional Radiology Nursing [...] patient's provider, ENT Service Dr. Jackie Mejía #[phone] , regarding above. Paged, callback # provided [...] Overview: March 2017: noted in ED in [facility]. Previously noted to be paroxysmal. No awareness. CHADS2-VASc=1 (age). Started on apixaban for PE Acute respiratory failure Overview: Worsening oxygenation. KORI on CPAP Adult BMI 30+ Estimated body mass index is 38.74 kg/(m^2) as calculated from the following: Height as of this encounter: 191.8 cm (6' 3.51). Weight as of this encounter: 142.5 kg (314 lb 2.5 oz). Admit Wt: 133.36 kg [place] body weight: 90.4 kg Type of access: [...] vitamins and minerals. Assessment: Estimated Nutrition Needs: 3356-5164 calories (20-25 kcal/kg IBW) 135-160 grams protein (1.5-2.0 g/kg IBW) Patient is out of the ICU and out on the floor. Tube feedings need adjustment as pt is no longer onpropofol. Appears tube feedings are still medically indicated given pt is s/p swallow eval and DETECTIVE LIEUTENANT recommends continuation of dobhoff TF for now. KATHY Mosqueda * Celso Mejía MD - 07/26/2017 9:00 AM EDT OTOLARYNGOLOGY - HEAD & NECK SURGERY DAILY PROGRESS NOTE Name: oJse Laws Age/Sex: 66 y.o. male Attending: Sriram [...] 2500 units/hr. -On zosyn for PNA, day 6/. Vitals Last value 24hr Range Temperature: 36.6 [...] Mejía MD, PGY1 07/26/17 9:01 AM Pager: [phone] * Calista Peralta RT - 07/26/2017 12:27 [...] 7.44 7.41 7.42 PO2ART 67* 60* 78* SPK1IVV 39 37 39 BEART 1.2 -2.0 0.3 [...] 7.44 7.41 7.42 PO2ART 67* 60* 78* GRA7URP 39 37 39 BEART 1.2 -2.0 0.3 [...] Samm Payne MD, FAAP Pediatric Otolaryngology [facility] * Beena Saini CORE COMPOSER FEEDER - 07/24/2017 4:28 AM EDT AMV Protocol: [...] Overview: March 2017[facility] Previously noted to be paroxysmal. No [...] 07/23/2017 3:50 PM EDT Office of Care Management(OCM)/Auto Damage Trainee(CM) Service: ENT Pt remains intubated at this [...] get appropriate choices after recs are made. Auto Damage Trainee Roc Valdez RN, BSN Pager #[phone] * Sony Oliva MD - 07/23/2017 11:31 [...] 07/23/2017 No results found for: PHART, PO2ART, RVT0XHG ASSESSMENT, MANAGEMENT, and DECISION MAKING: potential for [...] LEAST ONE OF THESE DX to USE 59978 ARDS Stupor Hypoxemic Resp Failure (Fi02>50%) Delirium [...] LEAST ONE OF THESE DX to USE 87748 ARDS Stupor Hypoxemic Resp Failure (Fi02>50%) Delirium [...] to reach the patient's provider, Red 1 4021, regarding above. Monitor weight. Jose Laws is [...] LEAST ONE OF THESE DX to USE 09892 ARDS Stupor Hypoxemic Resp Failure (Fi02>50%) Delirium [...] PGY2 07/20/17 7:21 AM * Kaiden Gorman, [facility] - 07/20/2017 4:35 AM EDT AMV [...] LEAST ONE OF THESE DX to USE 59612 ARDS Stupor Hypoxemic Resp Failure (Fi02>50%) Delirium [...] FiO2 to 50% after ABG @ 17:22 7./. Plan: Continue to titrate FiO2 as tolerated [...] plan. Lakeshia Mckeon MD * Jeannie Jewell, [facility] - 07/17/2017 7:24 PM EDT 07/17/171922 [...] Jr, MD, PGY2 07/17/17 8:21 PM Pager: [phone] (For daytime 6AM - 6PM) Please contact on-call night ENT internet sales manager for issues between 6PM - 6AM * [...] the need arise fora surgical airway. - [facility] - HOB 30 degrees [...] kg (294 lb). Admit Weight: 133.36 kg [place] Body Weight: 90.3 kg I/O last 1 [...] ENT service. Nutrition to follow. * Lillian Pardo SLP - 07/16/2017 1:48 PM EDT Speech-Language Pathology Initial Consult ?? Order received and acknowledged. Records reviewed and pt and RN contacted. Pt remains intubated at this time. Assessment deferred at this time. Please re- consult after pt successfully extubated. ?? Lillian Pardo MA CCC-DETECTIVE LIEUTENANT Inpatient Rehabilitation Medicine pager:# [phone] * Salazar Bhagat MD - 07/16/2017 11:57 [...] 2.5* -- 3.7* 2.1 CBC Recent Labs 07/16/1739907/15/17 1618 07/14/17 0036 WBC 10.2* 14.6* 14.6* RBC [...] need arise for a surgical airway. - [facility] - HOB 30 degrees [...] Post-Op. Surgical/Head&Neck: Neck incision with aquaphor; 2 JYOTIH drains Neurologic: Pain controlled with acetaminophen SHIRA, [...] Martino MD, PGY1 07/16/17 9:12 AM Pager: [phone] (For daytime 6AM - 6PM) Please contact on-call night ENT internet sales manager for issues between 6PM - 6AM * Supa Sharif, [facility] - 07/15/2017 8:15 PM EDT AMV [...] need arise for a surgical airway. - [facility] protocol - Dexamethasone x3 doses [...] NECK SURGERY DAILY PROGRESS NOTE Name: Jose Lwas Age/Sex: 66 y.o. male Attending: Sriram Contreras [...] Martino MD, PGY1 07/15/17 7:06 AM Pager: [phone] (For daytime 6AM - 6PM) Please contact on-call night ENT internet sales manager for issues between 6PM - 6AM * Supa Sharif, [facility] - 07/14/2017 9:40 PM EDT AMV [...] ?? Pulm: nasally intubated, difficult airway - [facility] protocol - Dexamethasone x3 doses [...] MD 07/14/2017 6:47 PM * Adam Montana, [facility] - 07/14/2017 2:03 PM EDT AMV [...] Martino MD, PGY1 07/14/17 9:38 AM Pager: [phone] (For daytime 6AM - 6PM) Please contact on-call night ENT internet sales manager for issues between 6PM - 6AM * [...] of this encounter: 133.4 kg (294 lb). [place] Body Weight: 90.3 kg I/O last 1 [...] service. Nutrition to follow. * Cecilia Doll, CROCHETER HAND - 07/14/2017 5:36 AM EDT Mechanical Ventilation Note Vent Settings: Pressure Support 5 PEEP 5 FIO2 0.4 ETT: Left Nare placed at: 28 cm at the nare Changes made this shift: transitioned to pressure support 5 PEEP 5 FIO2 0.4 SBT Protocol: Yes Pass SBT: Yes AMV Protocol: Yes Assessment: ETT secured via suture. Of note, the highway patrol pilot balloon line is wrapped up in [...] Date ??? ACHILLES TENDON SURGERY Right 1996 [facility] ??? KNEE ARTHROSCOPY [facility] ??? PRO BIOPSY OROPHARYNX N/A 05/24/2017 BIOPSY, OROPHARYNX (WRVU 1.44) performed by Zafar Madera MD at [facility] OR ??? PRO LARYNGOSCOPY, DIRCT, OP SCOPE, BIOPSY N/A 05/24/2017 LARYNGOSCOPY, MICROSCOPE, WITH BIOPSY (WRVU 3.55) performed by Zafar Madera MD at [facility] OR ??? QUADRACEPS TENDON REPAIR Right 04/2016 [facility] ??? TONSILLECTOMY Allergies: Allergies Allergen [...] education: 17 Occupational History ??? 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 He is to Briana for 40 yrs. 4 children - All live in different states - [place]. Enjoys raising Beef Cattle and doing Civil War and Living History and shoot Black powder/Antique firearms. He enjoys builiding Firearms/Blacksmithing - [place]coal, [place], etc. Review of Systems: Not obtained due [...] - currently stable Pulm: nasally intubated - [facility] GI: DHT - Diet: [...] this case performed under IRB Protocol Study [id number] (Improving throat cancer surgical outcomes through intra-operative [...] to the planned procedure. Hand Hygiene: The patternmaker apprentice wood did perform hand hygiene prior to arterial [...] hypoxic respiratory failure Location of Procedure: ICU [facility]. Risks and Benefits: The risks and [...] RECOMMENDATIONS: ?? Continue dysphagia soft diet and [place]-thick liquids. ?? Upright to feed. ?? Small bites/sips. ?? Medications crushed in applesauce. Sriram Thompson MS [facility]-DETECTIVE LIEUTENANT Speech-Language Pathologist Rehabilitation Medicine Pager - [phone] Problem: Acute Rehab Services Goal & Intervention [...] Anticipated Discharge Disposition: inpatient rehabilitation facility Pager: [phone] OTONIEL JOSHUA OT 07/28/2017 Occupational Therapy Rehabilitation [...] * Plan of Care - Sriram Thompson, DETECTIVE LIEUTENANT - 07/28/2017 2:18 PM EDT Problem: Patient [...] documentation. RECOMMENDATIONS: ?? Dysphagia soft diet and [place]-thick liquids. ?? Upright to feed. ?? Small bites / sips. ?? Crush medications in applesauce when possible. Sriram Thompson MS [facility]-DETECTIVE LIEUTENANT Speech-Language Pathologist Rehabilitation Medicine Pager - [phone] Problem: Acute Rehab Services Goal & Intervention [...] PO intake. Awaiting plan for D/C to [facility] facility. INDIVIDUALIZED FALL PREVENTION INTERVENTIONS: Patient-specific fall [...] Anticipated Discharge Disposition: inpatient rehabilitation facility Pager: [phone] CRISTIAN NELSON, PT 07/27/2017 Physical Therapy Rehabilitation [...] sit/sit to supine -- Bed Mobility Goal, [place] Level independent -- Bed Mobility Goal, Outcome Achieved -- goal ongoing Goal: Gait Training Goal Stand Alone Therapy Goal Outcome: Ongoing (Interventions Implemented as Appropriate) 07/26/17 1329 07/27/17 1230 Gait Training Goal Gait Training Goal, Date Established 07/26/17 -- Gait Training Goal, Time to Achieve 30 days -- Gait Training Goal, [place] Level supervision required -- Gait Training Goal, [...] days -- Transfer Training Goal, Activity Type fpt-av-hlnmo/ppmkb-ix-bwh;ita-wl-pwmru/zajom-xw-rlq -- Transfer Train Goal, [place] Level supervision required -- Transfer Training Goal, Assist Device walker, rolling -- Transfer Training Goal, Outcome -- goal ongoing * Plan of Care - Sriram Thompson, DETECTIVE LIEUTENANT - 07/27/2017 10:59 AM EDT Problem: Patient [...] Crush medications in applesauce. Sriram Thompson MS [facility]-DETECTIVE LIEUTENANT Speech-Language Pathologist Rehabilitation Medicine Pager - [phone] Problem: Acute Rehab Services Goal & Intervention [...] PLAN MOVING FORWARD: -PEG tube. -IV abx -DETECTIVE LIEUTENANT consult. -hep gtt. INDIVIDUALIZED FALL PREVENTION INTERVENTIONS: [...] Pt appeared anxious and frustrated this morning. Supervisor Cutting And Boning consulted and talked with patient today. During a transfer to the [facility] it was determinedthat tube feeding was leaking [...] Anticipated Discharge Disposition: inpatient rehabilitation facility Pager: [phone] OTONIEL JOSHUA OT 07/26/2017 Occupational Therapy Rehabilitation [...] Anticipated Discharge Disposition: inpatient rehabilitation facility Pager: [phone] CRISTIAN NELSON, DANY 07/26/2017 Physical Therapy Rehabilitation [...] to sit/sit to supine Bed Mobility Goal, [place] Level independent Goal: Gait Training Goal Stand Alone Therapy Goal Outcome: Ongoing (Interventions Implemented as Appropriate) 07/26/17 1329 Gait Training Goal Gait Training Goal, Date Established 07/26/17 Gait Training Goal, Time to Achieve 30 days Gait Training Goal, [place] Level supervision required Gait Training Goal, Assist [...] 30 days Transfer Training Goal, Activity Type pou-bj-tbhxe/dwzzr-ia-fjq;myj-gz-slipg/jwywq-cj-vyk Transfer Train Goal, [place] Level supervision required Transfer Training Goal, Assist Device walker, rolling * Consult Note - Deanna Menjivar MD - 07/26/2017 11:08 AM EDT INITIAL HEME/ ONC CONSULT DATE OF CONSULT 07/26/2017 PATIENT Jose Laws 1950 REFERRING PHYSICIAN SRIRAM CONTRERAS A CONSULTATION QUESTION Recommendations for anticoagulation leaving the hospital HISTORY PRESENT ILLNESS This patient is a 66 y.o. male with a relevant past medical history significant for oropharyngeal cancer, malignancy associated VTE and Afib (CHADS-VASc of 1) who presented to [facility] for radical neck dissection on 07/13/17. We [...] Date ??? ACHILLES TENDON SURGERY Right 1996 [facility] ??? KNEE ARTHROSCOPY [facility] ??? PRO BIOPSY OROPHARYNX N/A 05/24/2017 BIOPSY, OROPHARYNX (WRVU 1.44) performed by Zafar Madera MD at [facility] OR ??? PRO LARYNGOSCOPY, DIRCT, OP SCOPE, BIOPSY N/A 05/24/2017 LARYNGOSCOPY, MICROSCOPE, WITH BIOPSY (WRVU 3.55) performed by Zafar Madera MD at [facility] ??? PRO LARYNGOSCOPY, DIRECT, DX, OP MICROSCOP N/A 07/16/2017 LARYNGOSCOPY, WITH MICROSCOPE (WRVU 2.57) performed by Sriram Contreras MD at [facility] OR ??? PRO PART EXC TONGUE, UNILAT RAD NECK Right 07/13/2017 @GLOSSECTOMY, PARTIAL,WITH UNILATERAL RADICAL NECK DISSECTION (WRVU 30.14) performed by Sriram Contreras MD at [facility] ??? PRO PARTIAL REMOVAL OF PHARYNX N/A 07/13/2017 PHARYNGECTOMY, LIMITED (WRVU 19.13) performed by Sriram Contreras MD at [facility] ??? PRO UNLISTED PROCEDURE LARYNX N/A 07/13/2017 LARYNGOSCOPY, MICRO, LASER EXCISION (WRVU 12.14) performed by Sriram Contreras MD at [facility] ??? QUADRACEPS TENDON REPAIR Right 04/2016 [facility] ??? TONSILLECTOMY FAMILY HISTORY No family history on file. No family history of VTE SOCIAL HISTORY Social History Social History ??? Marital status: Spouse name: Briana ??? Number of children: 4 ??? 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 He is to Briana for 40 yrs. 4 children - All live in different states - One Kathleen Enjoys raising Beef Cattle and doing Civil War and Living History and shoot Black powder/Antique firearms. He enjoys builiding Firearms/Blacksmithing - Charcoal, [place], etc. PHYSICAL EXAMINATION Most Recent Vitals: 07/26/17 [...] and thrombosis clinic Felice Harvey MD Pager [phone] Heme-Onc Fellow ?? HEMATOLOGY STAFF ADDENDUM I [...] Deanna Menjivar MD Hematology Staff physician, Pager: [phone] 07/26/17 * Plan of Care - Sriram Thompson, DETECTIVE LIEUTENANT - 07/26/2017 9:33 AM EDT Problem: Patient [...] degrees at all times. Sriram Thompson MS [facility]-DETECTIVE LIEUTENANT Speech-Language Pathologist Rehabilitation Medicine Pager - [phone] Problem: Acute Rehab Services Goal & Intervention [...] Ongoing (Interventions Implemented as Appropriate) 07/26/17 08 Coping/Psychosocial Plan Of Care Reviewed With patient [...] Ongoing (Interventions Implemented as Appropriate) 07/26/17 0836 Restraint Interventions Safety Promotion/Fall Prevention fall [...] Laws was transferred from the ICU to [facility] at approximately 1430 on 07/25/17. At the [...] per order. PLAN MOVING FORWARD: Transfer to [facility] INDIVIDUALIZED FALL PREVENTION INTERVENTIONS: Patient-specific [...] Date Met: 07/25/17 07/25/17516 Confusion, Acute (Adult) Safety achieves outcome * [...] am. PLAN MOVING FORWARD: Extubate, transfer to [facility] when able INDIVIDUALIZED FALL PREVENTION [...] Overview Goal: Plan of Care Review 07/23/17 1089 Coping/Psychosocial Plan Of Care Reviewed With patient [...] Outcome: Ongoing (Interventions Implemented as Appropriate) 07/15/17 4554 Skin Integrity Impairment, Risk/Actual Skin Integrity Impairment, [...] MOVING FORWARD: Extubate this am, transfer to [facility] when able INDIVIDUALIZED FALL PREVENTION [...] RN or CONCEPCION Surveillance [continuous indirect monitoring]: [place] ICU monitor Patient-specific fall prevention interventions for [...] Contreras MD - 07/16/2017 12:27 PM EDT [facility] Operative Note Patient Name: Jose Laws : [id number] MR#: [id number] Case Date: 07/16/2017 Surgeon: Surgeon(s) and Role: [...] Outcome: Ongoing (Interventions Implemented as Appropriate) 07/15/17 2504 Skin Integrity Impairment, Risk/Actual Skin Integrity Impairment, [...] monitoring required during toileting and ADLs]: RN, PRODUCT ADVISOR and RT Surveillance [continuous indirect monitoring]: Monitor [...] Implemented as Appropriate) 07/15/17 184 Pain, Acute Related Risk Factors (Acute Pain) communication barrier;procedure/treatment;surgery Goal: Acceptable Pain Control/Comfort Level Patient will demonstrate the desired outcomes by discharge/transition of care. Outcome: Ongoing (Interventions Implemented as Appropriate) 07/15/171843 Pain, Acute (Adult) Acceptable Pain Control/Comfort Level making progress toward outcome * Op Note - Sriram Contreras MD - 07/15/2017 4:58 PM EDT [facility] Operative Note Patient Name: Jose Laws : [id number] MR#: [id number] Case Date: 07/13/2017 Surgeon: Surgeon(s) and Role: * Sriram Contreras MD - Primary * Selvin Kaye MD - Resident-Mason Helper * Hilton Cheney PA - Physician Chorus Master Preoperative diagnosis: Right tongue base cancer Postoperative [...] Vicryl suture. Once this was completed, two 15-Chinese Robin drains were placed in the neck, [...] Laws would be surrogate decision maker per [place] surrogate decision making law. Any patient receiving care at [facility] must abide by [place] law. The hierarchy for surrogate decision making [...] (i) The agent with financial power of bridge builder or a conservator appointed in accordance with [...] Insurance: MEDICARE A & B Secondary Insurance: [employer] [facility] Prescription Coverage: yes. Preferred Pharmacy: [facility] in [place], [place]. Other: none. Primary Care Provider: Jovon Sifuentes MD [phone] Patient/Caregiver Goals of Treatment: plan being determined at this time. Likely home health at [place]. Potential Needs for Transition of Care: Rehab/SNF: tbd. Home Health: tbd. DME: none previously required. Dialysis: N/A Community Resources: none. Transportation: spouse will provide. Other: none. Anticipated Barriers to Discharge/Special Considerations: no barriers identified at this time. Plan: a member of the Care Management team will continue to monitor progress, follow for continuityof care and assist with transition of care planning. Auto Damage Trainee Roc Valdez RN, BSN Pager #[phone] documented in this encounter Plan of Treatment Upcoming Encounters Date Type Department Care Team (Late st Contact Info) Description 09/18/2024 10:20 AM EST Office Visit [place] [phone] Sriram Contreras MD [facility] [place] [address] 10/31/2024 1:30 PM EST Office Visit Hematology/Oncology at [address] [phone] Dmitry Bhatti MD [facility] [address] [place] [address] Ellen Mcrae APRN [facility] [place] [address] 10/31/2024 2:00 PM EST Infusion Hematology Oncology at [address] [phone] documented as of this encounter Procedures Procedure Name Priority Date/Time Associated Diagnosis Comments BEHAVIOR SPECIALIST SCAN 07/30/2017 12:00 AM EDT HEMOGRAM Routine 07/29/2017 3:41 AM EDT DIFFERENTIAL, AUTOMATED Routine 07/29/2017 3:41 AM EDT CBC (WITH DIFF) Routine 07/29/2017 3:41 AM EDT BASIC METABOLIC PANEL Routine 07/29/2017 3:41 AM EDT POCT GLUCOSE Routine 07/28/2017 11:53 AM EDT POCT GLUCOSE Routine 07/28/2017 7:52 AM EDT POCT GLUCOSE Routine 07/28/2017 4:27 AM EDT HEMOGRAM Routine 07/28/2017 3:47 AM EDT DIFFERENTIAL, AUTOMATED Routine 07/28/2017 3:47 AM EDT CBC (WITH DIFF) Routine 07/28/2017 3:47 AM EDT PHOSPHORUS Routine 07/28/2017 3:47 AM EDT MAGNESIUM Routine 07/28/2017 3:47 AM EDT BASIC METABOLIC PANEL Routine 07/28/2017 3:47 AM EDT POCT GLUCOSE [...] 07/27/2017 2:45 AM EDT BASIC METABOLIC PANEL Routine 07/27/2017 2:45 AM EDT POCT GLUCOSE [...] 07/26/2017 3:30 AM EDT BASIC METABOLIC PANEL Routine 07/26/2017 3:30 AM EDT POCT GLUCOSE Routine 07/26/2017 3:27 AM EDT POCT GLUCOSE Routine 07/25/2017 7:50 PM EDT APTT STAT 07/25/2017 5:51 PM EDT POCT GLUCOSE Routine 07/25/2017 4:01 PM EDT POCT GLUCOSE Routine 07/25/2017 12:10 PM EDT APTT STAT 07/25/2017 11:00 AM EDT POTASSIUM Routine 07/25/2017 11:00 AM EDT POCT GLUCOSE Routine 07/25/2017 8:27 AM EDT BLOOD GAS ARTERIAL POC Routine 07/25/2017 6:19 AM EDT POCT GLUCOSE Routine 07/25/2017 4:41 AM EDT HEMOGRAM Routine 07/25/2017 4:37 AM EDT DIFFERENTIAL, AUTOMATED Routine 07/25/2017 4:37 AM EDT APTT STAT 07/25/2017 4:37 AM EDT CBC (WITH DIFF) Routine 07/25/2017 4:37 AM EDT MAGNESIUM Routine 07/25/2017 4:37 AM EDT BASIC METABOLIC PANEL Routine 07/25/2017 4:37 AM EDT POCT GLUCOSE Routine 07/25/2017 12:10 AM EDT POCT GLUCOSE Routine 07/24/2017 8:05 PM EDT POCT GLUCOSE Routine 07/24/2017 8:04 PM EDT POCT GLUCOSE Routine 07/24/2017 3:42 PM EDT POCT GLUCOSE Routine 07/24/2017 11:42 AM EDT POCT GLUCOSE Routine 07/24/2017 8:00 AM EDT BLOOD GAS ARTERIAL POC Routine 07/24/2017 7:28 AM EDT POTASSIUM Routine 07/24/2017 7:28 AM EDT POCT GLUCOSE Routine 07/24/2017 3:42 AM EDT SCAN, PERIPHERAL BLOOD Routine 07/24/2017 1:00 AM EDT HEMOGRAM Routine 07/24/2017 1:00 AM EDT DIFFERENTIAL, AUTOMATED Routine 07/24/2017 1:00 AM EDT APTT STAT 07/24/2017 1:00 AM EDT CBC (WITH DIFF) Routine 07/24/2017 1:00 AM EDT BASIC METABOLIC PANEL Routine 07/24/2017 1:00 AM EDT POCT GLUCOSE Routine 07/23/2017 11:53 PM EDT POCT GLUCOSE Routine 07/23/2017 7:52 PM EDT POCT GLUCOSE Routine 07/23/2017 2:56 PM EDT APTT STAT 07/23/2017 2:55 PM EDT POCT GLUCOSE Routine 07/23/2017 12:07 PM EDT APTT STAT 07/23/2017 8:27 AM EDT POCT GLUCOSE Routine 07/23/2017 8:02 AM EDT BLOOD GAS ARTERIAL POC Routine 07/23/2017 6:32 AM EDT POTASSIUM Routine 07/23/2017 4:15 AM EDT POCT GLUCOSE Routine 07/23/2017 3:50 AM EDT APTT STAT 07/23/2017 1:53 AM EDT HEMOGRAM Routine 07/23/2017 12:45 AM EDT DIFFERENTIAL, AUTOMATED Routine 07/23/2017 12:45 AM EDT CBC (WITH DIFF) Routine 07/23/2017 12:45 AM EDT BASIC METABOLIC PANEL Routine 07/23/2017 12:45 AM EDT POCT GLUCOSE Routine 07/22/2017 11:59 PM EDT POCT GLUCOSE Routine 07/22/2017 8:07 PM EDT POCT GLUCOSE Routine 07/22/2017 4:00 PM EDT APTT STAT 07/22/2017 4:00 PM EDT POCT GLUCOSE Routine 07/22/2017 11:45 AM EDT APTT STAT 07/22/2017 8:30 AM EDT POCT GLUCOSE Routine 07/22/2017 8:28 AM EDT BLOOD GAS ARTERIAL POC Routine 07/22/2017 8:27 AM EDT HEMOGRAM Routine 07/22/2017 3:10 AM EDT DIFFERENTIAL, AUTOMATED Routine 07/22/2017 3:10 AM EDT APTT STAT 07/22/2017 3:10 AM EDT CBC (WITH DIFF) Routine 07/22/2017 3:10 AM EDT BASIC METABOLIC PANEL Routine 07/22/2017 3:10 AM EDT POCT GLUCOSE Routine 07/22/2017 3:08 AM EDT POCT GLUCOSE Routine 07/21/2017 11:52 PM EDT EKG 12-LEAD STAT 07/21/2017 10:42 PM EDT QT prolongation Persistent atrial fibrillation MAGNESIUM STAT 07/21/2017 10:35 PM EDT BASIC METABOLIC PANEL STAT 07/21/2017 10:35 PM EDT APTT STAT [...] Routine 07/21/2017 8:24 AM EDT BLOOD GAS ARTERIAL POC Routine 07/21/2017 7:42 AM EDT POCT GLUCOSE Routine 07/21/2017 3:21 AM EDT POTASSIUM Routine 07/21/2017 3:20 AM EDT APTT STAT 07/21/2017 1:05 AM EDT HEMOGRAM Routine 07/21/2017 12:25 AM EDT DIFFERENTIAL, AUTOMATED Routine 07/21/2017 12:25 AM EDT CBC (WITH DIFF) Routine 07/21/2017 12:25 AM EDT BASIC METABOLIC PANEL Routine 07/21/2017 12:25 AM EDT BLOOD GAS ARTERIAL POC Routine 07/21/2017 12:21 AM EDT POCT GLUCOSE [...] 07/20/2017 4:50 PM EDT BASIC METABOLIC PANEL Routine 07/20/2017 4:50 PM EDT POCT GLUCOSE Routine 07/20/2017 3:[address] CHEST PULMONARY EMBOLISM W CONTRAST Routine 07/20/2017 1:18 PM EDT LOWER RESPIRATORY CULTURE Routine 07/20/2017 12:31 PM EDT POCT GLUCOSE Routine 07/20/2017 11:45 AM EDT BLOOD GAS ARTERIAL POC Routine 07/20/2017 11:43 AM EDT POTASSIUM Routine [...] 07/20/2017 3:15 AM EDT BASIC METABOLIC PANEL Routine 07/20/2017 3:15 AM EDT POCT GLUCOSE Routine 07/20/2017 3:13 AM EDT BLOOD GAS ARTERIAL POC Routine 07/19/2017 11:36 PM EDT POCT GLUCOSE Routine 07/19/2017 11:31 PM EDT POTASSIUM Routine 07/19/2017 11:30 PM EDT POCT GLUCOSE Routine 07/19/2017 7:45 PM EDT BLOOD CULTURE STAT 07/19/2017 7:00 PM EDT BLOOD CULTURE STAT 07/19/2017 6:50 PM EDT XR CHEST ONE VIEW STAT 07/19/2017 6:3 5 PM EDT BLOOD GAS ARTERIAL POC Routine 07/19/2017 5:12 PM EDT EKG 12-LEAD STAT 07/19/2017 4:55 PM EDT Persistent atrial fibrillation PHOSPHORUS STAT 07/19/2017 4:50 PM EDT MAGNESIUM STAT 07/19/2017 4:50 PM EDT BASIC METABOLIC PANEL STAT 07/19/2017 4:50 PM EDT POCT GLUCOSE Routine 07/19/2017 3:37 PM EDT XR CHEST ONE VIEW STAT 07/19/2017 12: 53 PM EDT POCT GLUCOSE Routine 07/19/2017 12:36 PM EDT POTASSIUM Routine 07/19/2017 12:30 PM EDT BLOOD GAS ARTERIAL POC Routine 07/19/2017 12:17 PM EDT TSH Routine [...] 07/19/2017 2:30 AM EDT BASIC METABOLIC PANEL Routine 07/19/2017 2:30 AM EDT BLOOD GAS ARTERIAL POC Routine 07/18/2017 11:53 PM EDT POCT GLUCOSE Routine 07/18/2017 11:49 PM EDT POCT GLUCOSE Routine 07/18/2017 8:44 PM EDT BLOOD GAS ARTERIAL POC Routine 07/18/2017 5:22 PM EDT POCT GLUCOSE Routine 07/18/2017 3:42 PM EDT POCT GLUCOSE Routine 07/18/2017 1:05 PM EDT BLOOD GAS ARTERIAL POC Routine 07/18/2017 11:47 AM EDT BLOOD GAS ARTERIAL POC Routine 07/18/2017 7:56 AM EDT BLOOD GAS ARTERIAL POC Routine 07/18/2017 3:55 AM EDT POCT GLUCOSE Routine 07/18/2017 3:42 AM EDT HEMOGRAM Routine 07/18/2017 2:20 AM EDT DIFFERENTIAL, AUTOMATED Routine 07/18/2017 2:20 AM EDT CBC (WITH DIFF) Routine 07/18/2017 2:20 AM EDT MAGNESIUM Routine 07/18/2017 2:20 AM EDT BASIC METABOLIC PANEL Routine 07/18/2017 2:20 AM EDT BLOOD GAS ARTERIAL POC Routine 07/17/2017 11:36 PM EDT POCT GLUCOSE Routine 07/17/2017 11:34 PM EDT MAGNESIUM Routine 07/17/2017 10:10 PM EDT BLOOD GAS ARTERIAL POC Routine 07/17/2017 7:51 PM EDT POCT GLUCOSE Routine 07/17/2017 7:50 PM EDT BLOOD GAS ARTERIAL POC Routine 07/17/2017 3:20 PM EDT BLOOD GAS ARTERIAL POC Routine 07/17/2017 12:50 PM EDT XR CHEST ONE VIEW STAT 07/17/2017 12: 33 PM EDT BLOOD GAS ARTERIAL POC Routine 07/17/2017 11:54 AM EDT EXTUBATE Routine 07/17/2017 10:34 AM EDT CARDIAC ENZYMES ([facility]) STAT 07/17/2017 5:42 AM EDT HEMOGRAM Routine 07/17/2017 12:30 AM EDT DIFFERENTIAL, AUTOMATED Routine 07/17/2017 12:30 AM EDT CARDIAC ENZYMES ([facility]) STAT 07/17/2017 12:30 AM EDT CBC (WITH DIFF) Routine 07/17/2017 12:30 AM EDT BASIC METABOLIC PANEL Routine 07/17/2017 12:30 AM EDT ENDOTRACHEAL TUBE [...] 07/16/2017 4:00 AM EDT BASIC METABOLIC PANEL Routine 07/16/2017 4:00 AM EDT POCT GLUCOSE Routine 07/15/2017 12:26 PM EDT BASIC METABOLIC PANEL STAT 07/15/2017 10:20 AM EDT POCT GLUCOSE Routine 07/15/2017 8:30 AM EDT BLOOD GAS ARTERIAL POC Routine 07/15/2017 4:17 AM EDT HEMOGRAM Routine [...] 07/14/2017 12:36 AM EDT BASIC METABOLIC PANEL Routine 07/14/2017 12:36 AM EDT BASIC METABOLIC PANEL STAT 07/13/2017 9:33 PM EDT XR CHEST [...] Routine 07/13/2017 3:52 PM EDT BLOOD GAS ARTERIAL POC Routine 07/13/2017 3:46 PM EDT BLOOD GAS ARTERIAL POC Routine 07/13/2017 2:06 PM EDT COMPREHENSIVE METABOLIC PANEL Routine 07/13/2017 12:56 PM EDT BLOOD GAS ARTERIAL POC Routine 07/13/2017 12:15 PM EDT SURGICAL PATHOLOGY REPORT Routine 07/13/2017 12:04 PM EDT SPECIMEN TO PATHOLOGY Routine 07/13/2017 12:02 PM EDT BLOOD GAS ARTERIAL POC Routine 07/13/2017 10:35 AM EDT 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 Scanning Provider MEDIA MGR SCAN EXT O RDR/RSLT * (ABNORMAL) Differential, Automated (07/29/2017 3:41 AM EDT) Neutrophil % 59.9 % [facility] Neutrophil Absolute 4.48 1.70 - 6.10 x10(3)/mc L [facility] Lymph % 26.0 % [facility] Lymphocytes Abs 2.0 0.9 - 3.2 x10(3)/[facility] Monocyte % 10.0 % [facility] Monocyte Abs 0.8 0.3 - 0.9 x10(3)/[facility] Eos % 2.1 % [facility] Eosinophils Abs 0.2 0.0 - 0.4 x10(3)/[facility] Basophil % 0.7 % [facility] Baso Absolute 0.0 0.0 - 0.1 x10(3)/[facility] Immature Gran % 1.30 % [facility] Comment: Immature granulocytes(IG's)percentage and absolute count will include metamyelocytes, myelocytes, and promyelocytes. Blood smears from CBCs yielding IG's will be scanned manually for concordance. If this scan disagrees with the automated IG or if promyelocytes are noted, a manual differential will be performed. Immature Gran Absolute 0.10(H) 0.00 - 0.04 x10(3)/[facility] Blood specimen (specimen) 07/29/2017 3:41 AM EDT 07/29/2017 3:58 AM EDT Narrative Resulting Agency Comment Spec In Lab Sriram Contreras MD HEMATOLOGY ORDERAB LES Performing Organization Address City/State/[facility] Co de Phone Number [facility] [place] [address] * (ABNORMAL) Hemogram (07/29/2017 3:41 AM EDT) White Blood Cell 7.5 4.0 - 9.5 x10(3)/[facility] Red Blood Cell 4.14(L) 4.58 - 5.54 x10(6)/[facility] Hemoglobin 12.7(L) 13.7 - 16.5 gm/dL [facility] Hematocrit 38.1(L) 40.5 - 48.5 % [facility] Mean Cell Volume 92.0 82.9 - 93.[address] [facility] Mean Cell Hemoglobin 30.7 27.5 - 32.[address] [facility] Mean Cell Hemoglobin Concentration 33.3 32.0 - 35.7 gm/dL [facility] Platelet 281 145 - 357 x10(3)/mc L [facility] RDW Standard Deviation 46.4(H) 36.0 - 45.[address] [facility] RDW coefficient of variation 13.9(H) 11.4 - 13.8 % [facility] Mean Platelet Volume 9.9 7.6 - 12.[address] [facility] NRBC% auto 0.0 % [facility] NRBC Absolute 0.000 0.000 - 0.000 x10(3)/mc L [facility] Blood specimen (specimen) 07/29/2017 3:41 AM EDT 07/29/2017 3:58 AM EDT Narrative Resulting Agency Comment Spec In Lab Sriram Contreras MD HEMATOLOGY ORDERAB LES [facility] [place] [address] * Basic Metabolic Panel (non-fasting) (07/29/2017 3:41 AM EDT) Glucose 95 65 - 199 mg/dL [facility] Comment:Diabetes: >=200 mg/d L plus symptoms Blood Urea Nitrogen 16 10 - 20 mg/dL [facility] Creatinine 0.95 0.80 - 1.50 mg/dL [facility] Comment: Please note that the pediatric reference intervals supplied above were not validated at [facility]. Results from pediatric patients should be interpreted [...] - 107 mmol/L [facility] Carbon Dioxide 24 22 - 31 mmol/L [facility] Anion Gap 13 5 - 15 mmol/L [facility] Calcium 8.9 8.5 - 10.5 mg/dL [facility] Est Glomerular Filtration Rate >60 >=60 [facility] Comment: This estimated GFR (eGFR) value [...] the following links into your internet browser. [email or web address] Blood specimen (specimen) 07/29/2017 3:41 AM EDT 07/29/2017 3:58 AM EDT Narrative Resulting Agency Comment Spec In Lab Sriram Contreras MD CHEMISTRY ORDERABL ES Performing Organization Address [facility]/ZIP Co de Phone Number [facility] [place] [address] * POCT Glucose (07/28/2017 11:53 AM EDT) Glucose, POC 107 65 - 199 mg/dL [facility] Comment: Supplemental ranges: <140 mg/dL before meals <180 mg/dL all other times of the day Blood specimen (specimen) 07/28/2017 11:53 AM EDT 07/28/2017 11:53 AM EDT Sriram Contreras MD POINT OF CARE TEST ORDERABLES [facility] [place] [address] * POCT Glucose (07/28/2017 7:52 AM EDT) Glucose, POC 97 65 - 199 mg/dL [facility] Comment: Supplemental ranges: <140 mg/dL before meals <180 mg/dL all other times of the day Blood specimen (specimen) 07/28/2017 7:52 AM EDT 07/28/2017 7:52 AM EDT Sriram Contreras MD POINT OF CARE TEST ORDERABLES Performing Organization Address City/[facility]/ZIP Co de Phone Number [facility] [place] [address] * POCT Glucose (07/28/2017 4:27 AM EDT) Glucose, POC 98 65 - 199 mg/dL [facility] Comment: Supplemental ranges: <140 mg/dL before meals <180 mg/dL all other times of the day Blood specimen (specimen) 07/28/2017 4:27 AM EDT 07/28/2017 4:27 AM EDT Sriram Contreras MD POINT OF CARE TEST ORDERABLES Performing Organization Address [facility] Co de Phone Number [facility] [place] [address] * Phosphorus (07/28/2017 3:47 AM EDT) Phosphorus 3.7 2.5 - 4.5 mg/dL [facility] Blood specimen (specimen) 07/28/2017 3:47 AM EDT 07/28/2017 6:16 AM EDT Narrative Resulting Agency Comment Spec In Lab Sriram Contreras MD CHEMISTRY ORDERABL ES Performing Organization Address City/[facility]/ZIP Co de Phone Number [facility] [place] [address] * Magnesium (07/28/2017 3:47 AM EDT) Magnesium 0.86 0.69 - 1.07 mmol/L [facility] Blood specimen (specimen) 07/28/2017 3:47 AM EDT 07/28/2017 6:16 AM EDT Narrative Resulting Agency Comment Spec In Lab Sriram Contreras MD CHEMISTRY ORDERABL ES [facility] [place] [address] * (ABNORMAL) Differential, Automated (07/28/2017 3:47 AM EDT) [facility] Neutrophil % 62.2 % [facility] Neutrophil Absolute 4.94 1.70 - 6.10 x10(3)/mc L [facility] Lymph % 22.1 % [facility] Lymphocytes Abs 1.8 0.9 - 3.2 x10(3)/ L [facility] Monocyte % 10.6 % [facility] Monocyte Abs 0.8 0.3 - 0.9 x10(3)/ L [facility] Eos % 2.1 % [facility] Eosinophils Abs 0.2 0.0 - 0.4 x10(3)/ L [facility] Basophil % 1.1 % [facility] Baso Absolute 0.1 0.0 - 0.1 x10(3)/mc L [facility] Immature Gran % 1.90 % [facility] Comment: Immature granulocytes(IG's)percentage and absolute count will include metamyelocytes, myelocytes, and promyelocytes. Blood smears from CBCs yielding IG's will be scanned manually for concordance. If this scan disagrees with the automated IG or if promyelocytes are noted, a manual differential will be performed. Immature Gran Absolute 0.15(H) 0.00 - 0.04 x10(3)/mc L [facility] Blood specimen (specimen) 07/28/2017 3:47 AM EDT 07/28/2017 3:58 AM EDT Narrative Resulting Agency Comment Spec In Lab Sriram Contreras MD HEMATOLOGY ORDERAB LES [facility] [place] [address] * (ABNORMAL) Hemogram (07/28/2017 3:47 AM EDT) White Blood Cell 8.0 4.0 - 9.5 x10(3)/mc L [facility] Red Blood Cell 4.43(L) 4.58 - 5.54 x10(6)/mc L [facility] Hemoglobin 13.4(L) 13.7 - 16.5 gm/dL [facility] Hematocrit 40.3(L) 40.5 - 48.5 % [facility] Mean Cell Volume 91.0 82.9 - 93.[address] [facility] Mean Cell Hemoglobin 30.2 27.5 - 32.[address] [facility] Mean Cell Hemoglobin Concentration 33.3 32.0 - 35.7 gm/dL [facility] Platelet 271 145 - 357 x10(3)/mc L [facility] RDW Standard Deviation 45.5(H) 36.0 - 45.0 [facility] RDW coefficient of variation 13.8 11.4 - 13.8 % [facility] Mean Platelet Volume 9.9 7.6 - 12.[address] [facility] NRBC% auto 0.0 % [facility] NRBC Absolute 0.000 0.000 - 0.000 x10(3)/mc L [facility] Blood specimen (specimen) 07/28/2017 3:47 AM EDT 07/28/2017 3:58 AM EDT Narrative Resulting Agency Comment Spec In Lab Sriram Contreras MD HEMATOLOGY ORDERAB LES [facility] [place] [address] * Basic Metabolic Panel (non-fasting) (07/28/2017 3:47 AM EDT) Glucose 110 65 - 199 mg/dL [facility] Comment:Diabetes: >=200 mg/d L plus symptoms Blood Urea Nitrogen 19 10 - 20 mg/dL [facility] Creatinine 0.96 0.80 - 1.50 mg/dL [facility] Comment: Please note that the pediatric reference intervals supplied above were not validated at [facility]. Results from pediatric patients should be interpreted [...] - 107 mmol/L [facility] Carbon Dioxide 24 22 - 31 mmol/L [facility] Anion Gap 15 5 - 15 mmol/L [facility] Calcium 8.9 8.5 - 10.5 mg/dL [facility] Est Glomerular Filtration Rate >60 >=60 [facility] Comment: This estimated GFR (eGFR) value [...] the following links into your internet browser. [email or web address] Blood specimen (specimen) 07/28/2017 3:47 AM EDT 07/28/2017 3:58 AM EDT Narrative Resulting Agency Comment Spec In Lab Sriram Contreras MD CHEMISTRY ORDERABL ES Performing Organization Address [facility] Co de Phone Number [facility] [place] [address] * POCT Glucose (07/27/2017 11:52 PM EDT) Glucose, POC 94 65 - 199 mg/dL [facility] Comment: Supplemental ranges: <140 mg/dL before meals <180 mg/dL all other times of the day Blood specimen (specimen) 07/27/2017 11:52 PM EDT 07/27/2017 11:52 PM EDT Sriram Contreras MD POINT OF CARE TEST ORDERABLES Performing Organization Address [facility] de Phone Number [facility] [place] [address] * Heparin, low molecular weight assay (07/27/2017 8:19 PM EDT) [facility] Signature Heparin [id number] 0.67 IU/mL [facility] Comment: [...] MD HEMATOLOGY ORDERAB LES Performing Organization Address [facility] de Phone Number [facility] [place] [address] * POCT Glucose (07/27/2017 7:35 PM EDT) Glucose, POC 118 65 - 199 mg/dL [facility] Comment: Supplemental ranges: <140 mg/dL before meals <180 mg/dL all other times of the day Blood specimen (specimen) 07/27/2017 7:35 PM EDT 07/27/2017 7:35 PM EDT Sriram Contreras MD POINT OF CARE TEST ORDERABLES Performing Organization Address [facility] Phone Number [facility] [place] [address] * POCT Glucose (07/27/2017 3:28 PM EDT) Glucose, POC 104 65 - 199 mg/dL [facility] Comment: Supplemental ranges: <140 mg/dL before meals <180 mg/dL all other times of the day Blood specimen (specimen) 07/27/2017 3:28 PM EDT 07/27/2017 3:28 PM EDT Sriram Contreras MD POINT OF CARE TEST ORDERABLES Performing Organization Address City/[facility]/ZIP Co de Phone Number [facility] [place] [address] * POCT Glucose (07/27/2017 11:06 AM EDT) Glucose, POC 147 65 - 199 mg/dL [facility] Comment: Supplemental ranges: <140 mg/dL before meals <180 mg/dL all other times of the day Blood specimen (specimen) 07/27/2017 11:06 AM EDT 07/27/2017 11:06 AM EDT Sriram Contreras MD POINT OF CARE TEST ORDERABLES Performing Organization Address City/[facility] Co de Phone Number [facility] [place] [address] * POCT Glucose (07/27/2017 7:25 AM EDT) Glucose, POC 105 65 - 199 mg/dL [facility] Comment: Supplemental ranges: <140 mg/dL before meals <180 mg/dL all other times of the day Blood specimen (specimen) 07/27/2017 7:25 AM EDT 07/27/2017 7:25 AM EDT Sriram Contreras MD POINT OF CARE TEST ORDERABLES Performing Organization Address City/[facility] Co de Phone Number [facility] [place] [address] * Duplex Study for DVT, Bilat legs (07/27/2017 6:59 AM EDT) VB Text Report Department: Vascular Surgery Lab Patient: [id number] (JOSE LAWS) CPT: 98848 ICD10: I26.99 Referring Physician: SRIRAM CONTRERAS ?? [...] MD VASCULAR ORDERABLE S Performing Organization Address City/[facility] Co de Phone Number [id number] * POCT Glucose (07/27/2017 3:52 AM EDT) Glucose, POC 106 65 - 199 mg/dL [facility] Comment: Supplemental ranges: <140 mg/dL before meals <180 mg/dL all other times of the day Blood specimen (specimen) 07/27/2017 3:52 AM EDT 07/27/2017 3:52 AM EDT Srriam Contreras MD POINT OF CARE TEST ORDERABLES Performing Organization Address [facility]/State/ZIP Co de Phone Number [facility] [place] [address] * (ABNORMAL) APTT (07/27/2017 2:45 AM EDT) Pathologist [facility] Partial Thromboplastin Time 92(H) 25 - [address] [facility] Comment: The recommended therapeutic range for full dose, unfractionated heparin at [facility] is 80 ? 114 seconds. The use of the anti-Xa (heparin) level rather than the PTT is recommended for monitoring anticoagulation intensity in critically ill patients receiving unfractionated heparin by continuous IV infusion. Blood specimen (specimen) 07/27/2017 2:45 AM EDT 07/27/2017 2:55 AM EDT Narrative Resulting Agency Comment Spec In Lab Sriram Contreras MD HEMATOLOGY ORDERAB LES [facility] [place] [address] * (ABNORMAL) Differential, Automated (07/27/2017 2:45 AM EDT) [facility] Neutrophil % 67.8 % [facility] Neutrophil Absolute 8.40(H) 1.70 - 6.10 x10(3)/mc L [facility] Lymph % 17.4 % [facility] Lymphocytes Abs 2.2 0.9 - 3.2 x10(3)/mc L [facility] Monocyte % 9.5 % [facility] Monocyte Abs 1.2(H) 0.3 - 0.9 x10(3)/mc L [facility] Eos % 1.4 % [facility] Eosinophils Abs 0.2 0.0 - 0.4 x10(3)/mc L [facility] Basophil % 0.9 % [facility] Baso Absolute 0.1 0.0 - 0.1 x10(3)/mc L [facility] Immature Gran % 3.00 % [facility] Comment: Immature granulocytes(IG's)percentage and absolute count will include metamyelocytes, myelocytes, and promyelocytes. Blood smears from CBCs yielding IG's will be scanned manually for concordance. If this scan disagrees with the automated IG or if promyelocytes are noted, a manual differential will be performed. Immature Gran Absolute 0.37(H) 0.00 - 0.04 x10(3)/mc L [facility] Blood specimen (specimen) 07/27/2017 2:45 AM EDT 07/27/2017 2:55 AM EDT Narrative Resulting Agency Comment Spec In Lab Sriram Contreras MD HEMATOLOGY ORDERAB LES [facility] [place] [address] * (ABNORMAL) Hemogram (07/27/2017 2:45 AM EDT) White Blood Cell 12.4(H) 4.0 - 9.5 x10(3)/mc L [facility] Red Blood Cell 4.66 4.58 - 5.54 x10(6)/mc L [facility] Hemoglobin 14.3 13.7 - 16.5 gm/dL [facility] Hematocrit 42.0 40.5 - 48.5 % [facility] Mean Cell Volume 90.1 82.9 - 93.[address] [facility] Mean Cell Hemoglobin 30.7 27.5 - 32.[address] [facility] Mean Cell Hemoglobin Concentration 34.0 32.0 - 35.7 gm/dL [facility] Platelet 288 145 - 357 x10(3)/mc L [facility] RDW Standard Deviation 45.5(H) 36.0 - 45.[address] [facility] RDW coefficient of variation 14.0(H) 11.4 - 13.8 % [facility] Mean Platelet Volume 9.7 7.6 - 12.[address] [facility] NRBC% auto 0.0 % [facility] NRBC Absolute 0.000 0.000 - 0.000 x10(3)/mc L [facility] Blood specimen (specimen) 07/27/2017 2:45 AM EDT 07/27/2017 2:55 AM EDT Narrative Resulting Agency Comment Spec In Lab Sriram Contreras MD HEMATOLOGY ORDERAB LES [facility] [place] [address] * (ABNORMAL) Basic Metabolic Panel (non-fasting) (07/27/2017 2:45 AM EDT) Glucose 169 65 - 199 mg/dL [facility] Comment:Diabetes: >=200 mg/d L plus symptoms Blood Urea Nitrogen 22(H) 10 - 20 mg/dL [facility] Creatinine 0.92 0.80 - 1.50 mg/dL [facility] Comment: Please note that the pediatric reference intervals supplied above were not validated at [facility]. Results from pediatric patients should be interpreted [...] - 107 mmol/L [facility] Carbon Dioxide 23 22 - 31 mmol/L [facility] Anion Gap 16(H) 5 - 15 mmol/L [facility] Calcium 9.4 8.5 - 10.5 mg/dL [facility] Est Glomerular Filtration Rate >60 >=60 [facility] Comment: This estimated GFR (eGFR) value [...] the following links into your internet browser. [email or web address] Blood specimen (specimen) 07/27/2017 2:45 AM EDT 07/27/2017 2:55 AM EDT Narrative Resulting Agency Comment Spec In Lab Sriram Contreras MD CHEMISTRY ORDERABL ES Performing Organization Address [facility] Co de Phone Number [facility] [place] [address] * Phosphorus (07/27/2017 2:45 AM EDT) Phosphorus 4.3 2.5 - 4.5 mg/dL [facility] Blood specimen (specimen) 07/27/2017 2:45 AM EDT 07/27/2017 2:55 AM EDT Narrative Resulting Agency Comment Spec In Lab Sriram Contreras MD CHEMISTRY ORDERABL ES Performing Organization Address [facility] de Phone Number [facility] [place] [address] * Magnesium (07/27/2017 2:45 AM EDT) Magnesium 0.79 0.69 - 1.07 mmol/L [facility] Blood specimen (specimen) 07/27/2017 2:45 AM EDT 07/27/2017 2:55 AM EDT Narrative Resulting Agency Comment Spec In Lab Sriram Contreras MD CHEMISTRY ORDERABL ES Performing Organization Address [facility] Co de Phone Number [facility] [place] [address] * POCT Glucose (07/27/2017 12:02 AM EDT) Glucose, POC 112 65 - 199 mg/dL [facility] Comment: Supplemental ranges: <140 mg/dL before meals <180 mg/dL all other times of the day Blood specimen (specimen) 07/27/2017 12:02 AM EDT 07/27/2017 12:02 AM EDT Sriram Contreras MD POINT OF CARE TEST ORDERABLES Performing Organization Address [facility] Co de Phone Number [facility] [place] [address] * (ABNORMAL) APTT (07/26/2017 9:29 PM EDT) Partial Thromboplastin Time 90(H) 25 - [address] [facility] Comment: The recommended therapeutic range for full dose, unfractionated heparin at [facility] is 80 ? 114 seconds. The use of the anti-Xa (heparin) level rather than the PTT is recommended for monitoring anticoagulation intensity in critically ill patients receiving unfractionated heparin by continuous IV infusion. Blood specimen (specimen) 07/26/2017 9:29 PM EDT 07/26/2017 9:32 PM EDT Narrative Resulting Agency Comment Spec In Lab Sriram Contreras MD HEMATOLOGY ORDERAB LES Performing Organization Address [facility] de Phone Number [facility] [place] [address] * POCT Glucose (07/26/2017 8:14 PM EDT) Glucose, POC 116 65 - 199 mg/dL [facility] Comment: Supplemental ranges: <140 mg/dL before meals <180 mg/dL all other times of the day Blood specimen (specimen) 07/26/2017 8:14 PM EDT 07/26/2017 8:14 PM EDT Sriram Contreras MD POINT OF CARE TEST ORDERABLES Performing Organization Address [facility] Co de Phone Number [facility] [place] [address] * POCT Glucose (07/26/2017 3:20 PM EDT) Glucose, POC 125 65 - 199 mg/dL [facility] Comment: Supplemental ranges: <140 mg/dL before meals <180 mg/dL all other times of the day Blood specimen (specimen) 07/26/2017 3:20 PM EDT 07/26/2017 3:20 PM EDT Sriram Contreras MD POINT OF CARE TEST ORDERABLES Performing Organization Address [facility] Co de Phone Number [facility] [place] [address] * (ABNORMAL) APTT (07/26/2017 1:51 PM EDT) Partial Thromboplastin Time 88(H) 25 - [address] [facility] Comment: The recommended therapeutic range for full dose, unfractionated heparin at [facility] is 80 ? 114 seconds. The use of the anti-Xa (heparin) level rather than the PTT is recommended for monitoring anticoagulation intensity in critically ill patients receiving unfractionated heparin by continuous IV infusion. Blood specimen (specimen) 07/26/2017 1:51 PM EDT 07/26/2017 1:55 PM EDT Narrative Resulting Agency Comment Spec In Lab Sriram Contreras MD HEMATOLOGY ORDERAB LES Performing Organization Address [facility] Co de Phone Number [facility] [place] [address] * POCT Glucose (07/26/2017 11:12 AM EDT) Glucose, POC 120 65 - 199 mg/dL [facility] Comment: Supplemental ranges: <140 mg/dL before meals <180 mg/dL all other times of the day Blood specimen (specimen) 07/26/2017 11:12 AM EDT 07/26/2017 11:12 AM EDT Sriram Conrteras MD POINT OF CARE TEST ORDERABLES Performing Organization Address City/[facility] Co de Phone Number [facility] [place] [address] * POCT Glucose (07/26/2017 7:35 AM EDT) Pathologist [facility] Glucose, POC 115 65 - 199 mg/dL [facility] Comment: Supplemental ranges: <140 mg/dL before meals <180 mg/dL all other times of the day Blood specimen (specimen) 07/26/2017 7:35 AM EDT 07/26/2017 7:35 AM EDT Sriram Contreras MD POINT OF CARE TEST ORDERABLES Performing Organization Address [facility] de Phone Number [facility] [place] [address] * (ABNORMAL) APTT (07/26/2017 3:30 AM EDT) [facility] Partial Thromboplastin Time 60(H) 25 - [address] [facility] Comment: The recommended therapeutic range for full dose, unfractionated heparin at [facility] is 80 ? 114 seconds. The use of the anti-Xa (heparin) level rather than the PTT is recommended for monitoring anticoagulation intensity in critically ill patients receiving unfractionated heparin by continuous IV infusion. Blood specimen (specimen) 07/26/2017 3:30 AM EDT 07/26/2017 4:11 AM EDT Narrative Resulting Agency Comment Spec In Lab Sriram Contreras MD HEMATOLOGY ORDERAB LES Performing Organization Address [facility] Co de Phone Number [facility] [place] [address] * (ABNORMAL) Differential, Automated (07/26/2017 3:30 AM EDT) Pathologist [facility] Neutrophil % 68.7 % [facility] Neutrophil Absolute 8.50(H) 1.70 - 6.10 x10(3)/mc L [facility] Lymph % 14.3 % [facility] Lymphocytes Abs 1.8 0.9 - 3.2 x10(3)/ L [facility] Monocyte % 9.6 % [facility] Monocyte Abs 1.2(H) 0.3 - 0.9 x10(3)/[facility] Eos % 1.3 % [facility] Eosinophils Abs 0.2 0.0 - 0.4 x10(3)/[facility] Basophil % 1.4 % [facility] Baso Absolute 0.2(H) 0.0 - 0.1 x10(3)/[facility] Immature Gran % 4.70 % [facility] Comment: Immature granulocytes(IG's)percentage and absolute count will include metamyelocytes, myelocytes, and promyelocytes. Blood smears from CBCs yielding IG's will be scanned manually for concordance. If this scan disagrees with the automated IG or if promyelocytes are noted, a manual differential will be performed. Immature Gran Absolute 0.58(H) 0.00 - 0.04 x10(3)/[facility] Blood specimen (specimen) 07/26/2017 3:30 AM EDT 07/26/2017 4:11 AM EDT Narrative Resulting Agency Comment Spec In Lab Sriram Contreras MD HEMATOLOGY ORDERAB LES Performing Organization Address City/State/[facility] Co de Phone Number [facility] [place] [address] * (ABNORMAL) Hemogram (07/26/2017 3:30 AM EDT) White Blood Cell 12.4(H) 4.0 - 9.5 x10(3)/[facility] Red Blood Cell 4.87 4.58 - 5.54 x10(6)/[facility] Hemoglobin 15.2 13.7 - 16.5 gm/dL [facility] Hematocrit 44.1 40.5 - 48.5 % [facility] Mean Cell Volume 90.6 82.9 - 93.[address] [facility] Mean Cell Hemoglobin 31.2 27.5 - 32.[address] [facility] Mean Cell Hemoglobin Concentration 34.5 32.0 - 35.7 gm/dL [facility] Platelet 253 145 - 357 x10(3)/mc L [facility] RDW Standard Deviation 44.8 36.0 - 45.[address] [facility] RDW coefficient of variation 13.6 11.4 - 13.8 % [facility] Mean Platelet Volume 10.4 7.6 - 12.[address] [facility] NRBC% auto 0.2 % [facility] NRBC Absolute 0.020(H) 0.000 - 0.000 x10(3)/mc L [facility] Blood specimen (specimen) 07/26/2017 3:30 AM EDT 07/26/2017 4:11 AM EDT Narrative Resulting Agency Comment Spec In Lab Sriram Contreras MD HEMATOLOGY ORDERAB LES [facility] [place] [address] * Basic Metabolic Panel (non-fasting) (07/26/2017 3:30 AM EDT) Glucose 123 65 - 199 mg/dL [facility] Comment:Diabetes: >=200 mg/d L plus symptoms Blood Urea Nitrogen 18 10 - 20 mg/dL [facility] Creatinine 0.85 0.80 - 1.50 mg/dL [facility] Comment: Please note that the pediatric reference intervals supplied above were not validated at [facility]. Results from pediatric patients should be interpreted [...] - 107 mmol/L [facility] Carbon Dioxide 25 22 - 31 mmol/L [facility] Anion Gap 14 5 - 15 mmol/L [facility] Calcium 9.2 8.5 - 10.5 mg/dL [facility] Est Glomerular Filtration Rate >60 >=60 [facility] Comment: This estimated GFR (eGFR) value [...] the following links into your internet browser. [email or web address] Blood specimen (specimen) 07/26/2017 3:30 AM EDT 07/26/2017 4:11 AM EDT Narrative Resulting Agency Comment Spec In Lab Sriram Contreras MD CHEMISTRY ORDERABL ES Performing Organization Address [facility] de Phone Number [facility] [place] [address] * Prealbumin (07/26/2017 3:30 AM EDT) Prealbumin 26 20 - 40 mg/dL [facility] Comment: Prealbumin levels are generally lower in the pediatric population; adult concentrations are usually attained near puberty. Blood specimen (specimen) 07/26/2017 3:30 AM EDT 07/26/2017 4:11 AM EDT Narrative Resulting Agency Comment Spec In Lab Sriram Contreras MD CHEMISTRY ORDERABL ES Performing Organization Address [facility] Co de Phone Number [facility] [place] [address] * POCT Glucose (07/26/2017 3:27 AM EDT) Glucose, POC 116 65 - 199 mg/dL [facility] Comment: Supplemental ranges: <140 mg/dL before meals <180 mg/dL all other times of the day Blood specimen (specimen) 07/26/2017 3:27 AM EDT 07/26/2017 3:27 AM EDT Sriram Contreras MD POINT OF CARE TEST ORDERABLES Performing Organization Address City/[facility]/ZIP Co de Phone Number [facility] [place] [address] * POCT Glucose (07/25/2017 7:50 PM EDT) Glucose, POC 109 65 - 199 mg/dL [facility] Comment: Supplemental ranges: <140 mg/dL before meals <180 mg/dL all other times of the day Blood specimen (specimen) 07/25/2017 7:50 PM EDT 07/25/2017 7:50 PM EDT Sriram Contreras MD POINT OF CARE TEST ORDERABLES Performing Organization Address City/[facility]/ZIP Co de Phone Number [facility] [place] [address] * (ABNORMAL) APTT (07/25/2017 5:51 PM EDT) Partial Thromboplastin Time 112(H) 25 - [address] [facility] Comment: The recommended therapeutic range for full dose, unfractionated heparin at [facility] is 80 ? 114 seconds. The use of the anti-Xa (heparin) level rather than the PTT is recommended for monitoring anticoagulation intensity in critically ill patients receiving unfractionated heparin by continuous IV infusion. Blood specimen (specimen) 07/25/2017 5:51 PM EDT 07/25/2017 5:55 PM EDT Narrative Resulting Agency Comment Spec In Lab Sriram Contreras MD HEMATOLOGY ORDERAB LES Performing Organization Address [facility] Co de Phone Number [facility] [place] [address] * POCT Glucose (07/25/2017 4:01 PM EDT) Glucose, POC 109 65 - 199 mg/dL [facility] Comment: Supplemental ranges: <140 mg/dL before meals <180 mg/dL all other times of the day Blood specimen (specimen) 07/25/2017 4:01 PM EDT 07/25/2017 4:01 PM EDT Sriram Contreras MD POINT OF CARE TEST ORDERABLES Performing Organization Address [facility] Co de Phone Number [facility] [place] [address] * POCT Glucose (07/25/2017 12:10 PM EDT) Glucose, POC 117 65 - 199 mg/dL [facility] Comment: Supplemental ranges: <140 mg/dL before meals <180 mg/dL all other times of the day Blood specimen (specimen) 07/25/2017 12:10 PM EDT 07/25/2017 12:10 PM EDT Sriram Contreras MD POINT OF CARE TEST ORDERABLES Performing Organization Address [facility] Co de Phone Number [facility] [place] [address] * Potassium (07/25/2017 11:00 AM EDT) Potassium [...] MD CHEMISTRY ORDERABL ES Performing Organization Address [facility] de Phone Number [facility] [place] [address] * (ABNORMAL) APTT (07/25/2017 11:00 AM EDT) [facility] Signature Partial Thromboplastin Time 102(H) 25 - [address] [facility] Comment: The recommended therapeutic range for full dose, unfractionated heparin at [facility] is 80 ? 114 seconds. The use of the anti-Xa (heparin) level rather than the PTT is recommended for monitoring anticoagulation intensity in critically ill patients receiving unfractionated heparin by continuous IV infusion. Blood specimen (specimen) 07/25/2017 11:00 AM EDT 07/25/2017 11:05 AM EDT Narrative Resulting Agency Comment Spec In Lab Sriram Contreras MD HEMATOLOGY ORDERAB LES Performing Organization Address [facility] de Phone Number [facility] [place] [address] * POCT Glucose (07/25/2017 8:27 AM EDT) [facility] Glucose, POC 124 65 - 199 mg/dL [facility] Comment: Supplemental ranges: <140 mg/dL before meals <180 mg/dL all other times of the day Blood specimen (specimen) 07/25/2017 8:27 AM EDT 07/25/2017 8:27 AM EDT Sriram Contrreas MD POINT OF CARE TEST ORDERABLES Performing Organization Address [facility] de Phone Number [facility] [place] [address] * (ABNORMAL) BLOOD GAS 2 ARTERIAL (07/25/2017 6:19 AM EDT) [facility] pH, Arterial 7.51(H) 7.35 - 7.45 [facility] PCO2, Arterial 29(L) 35 - [address] [facility] PO2, Arterial 59(L) 85 - [address] [facility] Bicarbonate, Arterial 22.2 20.0 - 26.0 mmol/L [facility] Base Excess, Arterial -0.9 -3.0 - 3.0 mmol/L [facility] Hgb Blood Gas 14.6 13.7 - 16.5 gm/dL [facility] Oxyhemoglobin, Arterial 91.1(L) 94.0 - 97.0 % [facility] Carboxyhemoglob in, Arterial 0.3 % [facility] Comment: Nonsmokers: 0.5-1.5% COHB Smokers: Variable, but usually less than 10% Toxic: 20-30% COHB Lethal: Greater than 60% COHB Methemoglobin, Arterial 0.6 <=1.5 % [facility] Na Whole Blood 141 135 [...] 07/25/2017 6:19 AM EDT Sriram Contreras MD POINT OF CARE TEST ORDERABLES [facility] [place] [address] * POCT Glucose (07/25/2017 4:41 AM EDT) [facility] Glucose, POC 101 65 - 199 mg/dL [facility] Comment: Supplemental ranges: <140 mg/dL before meals <180 mg/dL all other times of the day Blood specimen (specimen) 07/25/2017 4:41 AM EDT 07/25/2017 4:41 AM EDT Sriram Contreras MD POINT OF CARE TEST ORDERABLES Performing Organization Address [facility]/ZIP Co de Phone Number [facility] [place] [address] * Magnesium (07/25/2017 4:37 AM EDT) [facility] Magnesium 0.83 0.69 - 1.07 mmol/L [facility] Blood specimen (specimen) Venous Draw / Unknown 07/25/2017 4:37 AM EDT 07/25/2017 4:50 AM EDT Narrative Resulting Agency Comment Spec In Lab Sriram Contreras MD CHEMISTRY ORDERABL ES Performing Organization Address [facility]/ZIP Co de Phone Number [facility] [place] [address] * (ABNORMAL) Differential, Automated (07/25/2017 4:37 AM EDT) [facility] Neutrophil % 68.4 % [facility] Neutrophil Absolute 8.77(H) 1.70 - 6.10 x10(3)/mc L [facility] Lymph % 15.0 % [facility] Lymphocytes Abs 1.9 0.9 - 3.2 x10(3)/mc L [facility] Monocyte % 8.9 % [facility] Monocyte Abs 1.1(H) 0.3 - 0.9 x10(3)/mc L [facility] Eos % 1.9 % [facility] Eosinophils Abs 0.2 0.0 - 0.4 x10(3)/ L [facility] Basophil % 1.0 % [facility] Baso Absolute 0.1 0.0 - 0.1 x10(3)/[facility] LABORAT[facility] Immature Gran % 4.80 % [facility] Comment: Immature granulocytes(IG's)percentage and absolute count will include metamyelocytes, myelocytes, and promyelocytes. Blood smears from CBCs yielding IG's will be scanned manually for concordance. If this scan disagrees with the automated IG or if promyelocytes are noted, a manual differential will be performed. Immature Gran Absolute 0.62(H) 0.00 - 0.04 x10(3)/[facility] Blood specimen (specimen) 07/25/2017 4:37 AM EDT 07/25/2017 4:48 AM EDT Narrative Resulting Agency Comment Spec In Lab Sriram Contreras MD HEMATOLOGY ORDERAB LES [facility] [place] [address] * (ABNORMAL) Hemogram (07/25/2017 4:37 AM EDT) White Blood Cell 12.8(H) 4.0 - 9.5 x10(3)/[facility] Red Blood Cell 4.53(L) 4.58 - 5.54 x10(6)/ L [facility] Hemoglobin 14.0 13.7 - 16.5 gm/dL [facility] Hematocrit 40.3(L) 40.5 - 48.5 % [facility] Mean Cell Volume 89.0 82.9 - 93.[address] [facility] Mean Cell Hemoglobin 30.9 27.5 - 32.[address] [facility] Mean Cell Hemoglobin Concentration 34.7 32.0 - 35.7 gm/dL [facility] Platelet 241 145 - 357 x10(3)/mc L [facility] RDW Standard Deviation 43.1 36.0 - 45.0 [facility] RDW coefficient of variation 13.2 11.4 - 13.8 % [facility] Mean Platelet Volume 9.9 7.6 - 12.9 [facility] NRBC% auto 0.0 % [facility] [facility] NRBC Absolute 0.000 0.000 - 0.000 x10(3)/mc L [facility] Blood specimen (specimen) 07/25/2017 4:37 AM EDT 07/25/2017 4:48 AM EDT Narrative Resulting Agency Comment Spec In Lab Sriram Contreras MD HEMATOLOGY ORDERAB LES [facility] [place] [address] * Basic Metabolic Panel (non-fasting) (07/25/2017 4:37 AM EDT) Glucose 120 65 - 199 mg/dL [facility] Comment:Diabetes: >=200 mg/d L plus symptoms Blood Urea Nitrogen 14 10 - 20 mg/dL [facility] Creatinine 0.81 0.80 - 1.50 mg/dL [facility] Comment: Please note that the pediatric reference intervals supplied above were not validated at [facility]. Results from pediatric patients should be interpreted [...] - 107 mmol/L [facility] Carbon Dioxide 24 22 - 31 mmol/L [facility] Anion Gap 13 5 - 15 mmol/L [facility] Calcium 8.8 8.5 - 10.5 mg/dL [facility] Est Glomerular Filtration Rate >60 >=60 [facility] Comment: This estimated GFR (eGFR) value [...] the following links into your internet browser. [email or web address] Blood specimen (specimen) 07/25/2017 4:37 AM EDT 07/25/2017 4:48 AM EDT Narrative Resulting Agency Comment Spec In Lab Sriram Contreras MD CHEMISTRY ORDERABL ES Performing Organization Address [facility] de Phone Number [facility] [place] [address] * (ABNORMAL) APTT (07/25/2017 4:37 AM EDT) [facility] Partial Thromboplastin Time 122(H) 25 - [address] [facility] Comment: The recommended therapeutic range for full dose, unfractionated heparin at [facility] is 80 ? 114 seconds. The use of the anti-Xa (heparin) level rather than the PTT is recommended for monitoring anticoagulation intensity in critically ill patients receiving unfractionated heparin by continuous IV infusion. Blood specimen (specimen) 07/25/2017 4:37 AM EDT 07/25/2017 4:48 AM EDT Narrative Resulting Agency Comment Spec In Lab Sriram Contreras MD HEMATOLOGY ORDERAB LES Performing Organization Address [facility] Co de Phone Number [facility] [place] [address] * POCT Glucose (07/25/2017 12:10 AM EDT) Glucose, POC 108 65 - 199 mg/dL [facility] Comment: Supplemental ranges: <140 mg/dL before meals <180 mg/dL all other times of the day Blood specimen (specimen) 07/25/2017 12:10 AM EDT 07/25/2017 12:10 AM EDT Sriram Contreras MD POINT OF CARE TEST ORDERABLES [facility] [place] [address] * POCT Glucose (07/24/2017 8:05 PM EDT) Glucose, POC 112 65 - 199 mg/dL [facility] Comment: Supplemental ranges: <140 mg/dL before meals <180 mg/dL all other times of the day Blood specimen (specimen) 07/24/2017 8:05 PM EDT 07/24/2017 8:05 PM EDT Sriram Contreras MD POINT OF CARE TEST ORDERABLES Performing Organization Address City/[facility]/ZIP Co de Phone Number [facility] [place] [address] * POCT Glucose (07/24/2017 8:04 PM EDT) Glucose, POC 106 65 - 199 mg/dL [facility] Comment: Supplemental ranges: <140 mg/dL before meals <180 mg/dL all other times of the day Blood specimen (specimen) 07/24/2017 8:04 PM EDT 07/24/2017 8:04 PM EDT Sriram Contreras MD POINT OF CARE TEST ORDERABLES [facility] [place] [address] * POCT Glucose (07/24/2017 3:42 PM EDT) Glucose, POC 108 65 - 199 mg/dL [facility] Comment: Supplemental ranges: <140 mg/dL before meals <180 mg/dL all other times of the day Blood specimen (specimen) 07/24/2017 3:42 PM EDT 07/24/2017 3:42 PM EDT Sriram Contreras MD POINT OF CARE TEST ORDERABLES Performing Organization Address City/[facility]/ZIP Co de Phone Number [facility] [place] [address] * POCT Glucose (07/24/2017 11:42 AM EDT) Glucose, POC 102 65 - 199 mg/dL [facility] Comment: Supplemental ranges: <140 mg/dL before meals <180 mg/dL all other times of the day Blood specimen (specimen) 07/24/2017 11:42 AM EDT 07/24/2017 11:42 AM EDT Sriram Contreras MD POINT OF CARE TEST ORDERABLES Performing Organization Address [facility] Co de Phone Number [facility] [place] [address] * POCT Glucose (07/24/2017 8:00 AM EDT) Glucose, POC 107 65 - 199 mg/dL [facility] Comment: Supplemental ranges: <140 mg/dL before meals <180 mg/dL all other times of the day Blood specimen (specimen) 07/24/2017 8:00 AM EDT 07/24/2017 8:00 AM EDT Sriram Contreras MD POINT OF CARE TEST ORDERABLES Performing Organization Address City/[facility] Co de Phone Number [facility] [place] [address] * (ABNORMAL) BLOOD GAS 2 ARTERIAL (07/24/2017 7:28 AM EDT) pH, Arterial 7.44 7.35 - 7.45 [facility] PCO2, Arterial 39 35 - [address] [facility] PO2, Arterial 67(L) 85 - [address] [facility] Bicarbonate, Arterial 25.5 20.0 - 26.0 mmol/L [facility] Base Excess, Arterial 1.2 -3.0 - 3.0 mmol/L [facility] Hgb Blood Gas 13.8 13.7 - 16.5 gm/dL [facility] Oxyhemoglobin, Arterial 92.8(L) 94.0 - 97.0 % [facility] Carboxyhemoglob in, Arterial 0.3 % [facility] Comment: Nonsmokers: 0.5-1.5% COHB Smokers: Variable, but usually less than 10% Toxic: 20-30% COHB Lethal: Greater than 60% COHB Methemoglobin, Arterial 0.6 <=1.5 % [facility] Na Whole Blood 139 135 [facility] FIO2 Art 30 % [facility] PF Ratio Art 223 [facility] Blood specimen (specimen) 07/24/2017 7:28 AM EDT 07/24/2017 7:28 AM EDT Sriram Contreras MD POINT OF CARE TEST ORDERABLES Performing Organization Address [facility] Co de Phone Number [facility] [place] [address] * Potassium (07/24/2017 7:28 AM EDT) Potassium [...] MD CHEMISTRY ORDERABL ES Performing Organization Address [facility] de Phone Number [facility] [place] [address] * POCT Glucose (07/24/2017 3:42 AM EDT) [facility] Glucose, POC 91 65 - 199 mg/dL [facility] Comment: Supplemental ranges: <140 mg/dL before meals <180 mg/dL all other times of the day Blood specimen (specimen) 07/24/2017 3:42 AM EDT 07/24/2017 3:42 AM EDT Sriram Contreras MD POINT OF CARE TEST ORDERABLES Performing Organization Address [facility] Co de Phone Number [facility] [place] [address] * Scan, Peripheral Blood (07/24/2017 1:00 AM EDT) Plat estimate Normal [facility] RBC Morphology Normal [facility] Blood specimen (specimen) Venous Draw / Unknown 07/24/2017 1:00 AM EDT 07/24/2017 1:15 AM EDT Narrative Resulting Agency Comment Spec In Lab Sriram Contreras MD HEMATOLOGY ORDERAB LES Performing Organization Address City/[facility]/[place] [address] * (ABNORMAL) Differential, Automated (07/24/2017 1:00 AM EDT) Neutrophil % 69.9 % [facility] Neutrophil Absolute 9.34(H) 1.70 - 6.10 x10(3)/mc L [facility] Lymph % 13.7 % [facility] Lymphocytes Abs 1.8 0.9 - 3.2 x10(3)/ L [facility] Monocyte % 8.1 % [facility] Monocyte Abs 1.1(H) 0.3 - 0.9 x10(3)/mc L [facility] Eos % 2.2 % [facility] Eosinophils Abs 0.3 0.0 - 0.4 x10(3)/ L [facility] Basophil % 0.7 % [facility] Baso Absolute 0.1 0.0 - 0.1 x10(3)/ L [facility] [...] differential will be performed. Immature Gran Absolute 0.72(H) 0.00 - 0.04 x10(3)/mc L [facility] Blood specimen (specimen) 07/24/2017 1:00 AM EDT 07/24/2017 1:15 AM EDT Narrative Resulting Agency Comment Spec In Lab Sriram Contreras MD HEMATOLOGY ORDERAB LES Performing Organization Address City/[facility]/ZIP Co de [facility] [place] [facility] [place] [address] * (ABNORMAL) Hemogram (07/24/2017 1:00 AM EDT) White Blood Cell 13.4(H) 4.0 - 9.5 x10(3)/[facility] Red Blood Cell 4.13(L) 4.58 - 5.54 x10(6)/[facility] Hemoglobin 12.7(L) 13.7 - 16.5 gm/dL [facility] Hematocrit 38.0(L) 40.5 - 48.5 % [facility] Mean Cell Volume 92.0 82.9 - 93.1 [facility] Mean Cell Hemoglobin 30.8 27.5 - 32.[address] [facility] Mean Cell Hemoglobin Concentration 33.4 32.0 - 35.7 gm/dL [facility] Platelet 201 145 - 357 x10(3)/[facility] RDW Standard Deviation 45.5(H) 36.0 - 45.0 [facility] RDW coefficient of variation 13.4 11.4 - 13.8 % [facility] Mean Platelet Volume 10.1 7.6 - 12.9 [facility] NRBC% auto 0.0 % [facility] NRBC Absolute 0.000 0.000 - 0.000 x10(3)/[facility] Blood specimen (specimen) 07/24/2017 1:00 AM EDT 07/24/2017 1:15 AM EDT Narrative Resulting Agency Comment Spec In Lab Sriram Contreras MD HEMATOLOGY ORDERAB LES [facility] [place] [address] * (ABNORMAL) APTT (07/24/2017 1:00 AM EDT) [facility] Partial Thromboplastin Time 102(H) 25 - [address] [facility] Comment: The recommended therapeutic range for full dose, unfractionated heparin at [facility] is 80 ? 114 seconds. The use of the anti-Xa (heparin) level rather than the PTT is recommended for monitoring anticoagulation intensity in critically ill patients receiving unfractionated heparin by continuous IV infusion. Blood specimen (specimen) 07/24/2017 1:00 AM EDT 07/24/2017 1:14 AM EDT Narrative Resulting Agency Comment Spec In Lab Sriram Contreras MD HEMATOLOGY ORDERAB LES [facility] [place] [address] * (ABNORMAL) Basic Metabolic Panel (non-fasting) (07/24/2017 1:00 AM EDT) Glucose 103 65 - 199 mg/dL [facility] Comment:Diabetes: >=200 mg/d L plus symptoms Blood Urea Nitrogen 17 10 - 20 mg/dL [facility] Creatinine 0.70(L) 0.80 - 1.50 mg/dL [facility] Comment: Please note that the pediatric reference intervals supplied above were not validated at [facility]. Results from pediatric patients should be interpreted [...] - 107 mmol/L [facility] Carbon Dioxide 27 22 - 31 mmol/L [facility] Anion Gap 12 5 - 15 mmol/L [facility] Calcium 8.7 8.5 - 10.5 mg/dL [facility] Est Glomerular Filtration Rate >60 >=60 [facility] Comment: This estimated GFR (eGFR) value [...] the following links into your internet browser. [email or web address] Blood specimen (specimen) 07/24/2017 1:00 AM EDT 07/24/2017 1:14 AM EDT Narrative Resulting Agency Comment Spec In Lab Sriram Contreras MD CHEMISTRY ORDERABL ES Performing Organization Address [facility] Co de Phone Number [facility] [place] [address] * POCT Glucose (07/23/2017 11:53 PM EDT) Glucose, POC 95 65 - 199 mg/dL [facility] Comment: Supplemental ranges: <140 mg/dL before meals <180 mg/dL all other times of the day Blood specimen (specimen) 07/23/2017 11:53 PM EDT 07/23/2017 11:53 PM EDT Sriram Contreras MD POINT OF CARE TEST ORDERABLES Performing Organization Address [facility] Co de Phone Number [facility] [place] [address] * POCT Glucose (07/23/2017 7:52 PM EDT) Glucose, POC 91 65 - 199 mg/dL [facility] Comment: Supplemental ranges: <140 mg/dL before meals <180 mg/dL all other times of the day Blood specimen (specimen) 07/23/2017 7:52 PM EDT 07/23/2017 7:52 PM EDT Sriram Contreras MD POINT OF CARE TEST ORDERABLES Performing Organization Address [facility] Co de Phone Number [facility] [place] [address] * POCT Glucose (07/23/2017 2:56 PM EDT) Glucose, POC 115 65 - 199 mg/dL [facility] Comment: Supplemental ranges: <140 mg/dL before meals <180 mg/dL all other times of the day Blood specimen (specimen) 07/23/2017 2:56 PM EDT 07/23/2017 2:56 PM EDT Sriram Contreras MD POINT OF CARE TEST ORDERABLES Performing Organization Address [facility] de Phone Number [facility] [place] [address] * (ABNORMAL) APTT (07/23/2017 2:55 PM EDT) [facility] Partial Thromboplastin Time 101(H) 25 - [address] [facility] Comment: The recommended therapeutic range for full dose, unfractionated heparin at [facility] is 80 ? 114 seconds. The use of the anti-Xa (heparin) level rather than the PTT is recommended for monitoring anticoagulation intensity in critically ill patients receiving unfractionated heparin by continuous IV infusion. Blood specimen (specimen) 07/23/2017 2:55 PM EDT 07/23/2017 3:04 PM EDT Narrative Resulting Agency Comment Spec In Lab Sriram Contreras MD HEMATOLOGY ORDERAB LES Performing Organization Address [facility] Co de Phone Number [facility] [place] [address] * POCT Glucose (07/23/2017 12:07 PM EDT) Glucose, POC 97 65 - 199 mg/dL [facility] Comment: Supplemental ranges: <140 mg/dL before meals <180 mg/dL all other times of the day Blood specimen (specimen) 07/23/2017 12:07 PM EDT 07/23/2017 12:07 PM EDT Sriram Contreras MD POINT OF CARE TEST ORDERABLES Performing Organization Address [facility] de Phone Number [facility] [place] [address] * (ABNORMAL) APTT (07/23/2017 8:27 AM EDT) [facility] Partial Thromboplastin Time 95(H) 25 - [address] [facility] Comment: The recommended therapeutic range for full dose, unfractionated heparin at [facility] is 80 ? 114 seconds. The use of the anti-Xa (heparin) level rather than the PTT is recommended for monitoring anticoagulation intensity in critically ill patients receiving unfractionated heparin by continuous IV infusion. Blood specimen (specimen) 07/23/2017 8:27 AM EDT 07/23/2017 8:51 AM EDT Narrative Resulting Agency Comment Spec In Lab Sriram Contreras MD HEMATOLOGY ORDERAB LES Performing Organization Address [facility] de Phone Number [facility] [place] [address] * POCT Glucose (07/23/2017 8:02 AM EDT) [facility] Glucose, POC 103 65 - 199 mg/dL [facility] Comment: Supplemental ranges: <140 mg/dL before meals <180 mg/dL all other times of the day Blood specimen (specimen) 07/23/2017 8:02 AM EDT 07/23/2017 8:02 AM EDT Sriram Contreras MD POINT OF CARE TEST ORDERABLES Performing Organization Address [facility] de Phone Number [facility] [place] [address] * (ABNORMAL) BLOOD GAS 2 ARTERIAL (07/23/2017 6:32 AM EDT) [facility] pH, Arterial 7.41 7.35 - 7.45 [facility] PCO2, Arterial 37 35 - [address] [facility] PO2, Arterial 60(L) 85 - [address] [facility] Bicarbonate, Arterial 22.6 20.0 - 26.0 mmol/L [facility] Base Excess, Arterial -2.0 -3.0 - 3.0 mmol/L [facility] Hgb Blood Gas 12.7(L) 13.7 - 16.5 gm/dL [facility] Oxyhemoglobin, Arterial 90.3(L) 94.0 - 97.0 % [facility] Carboxyhemoglob in, Arterial 0.3 % [facility] Comment: Nonsmokers: 0.5-1.5% COHB Smokers: Variable, but usually less than 10% Toxic: 20-30% COHB Lethal: Greater than 60% COHB Methemoglobin, Arterial 0.5 <=1.5 % [facility] Na Whole Blood 138 135 [facility] FIO2 Art 30 % [facility] PF Ratio Art 200 [facility] Blood specimen (specimen) 07/23/2017 6:32 AM EDT 07/23/2017 6:32 AM EDT Sriram Contreras MD POINT OF CARE TEST ORDERABLES Performing Organization Address [facility] de Phone Number [facility] [place] [address] * Potassium (07/23/2017 4:15 AM EDT) [facility] Potassium 4.1 3.5 - 5.0 mmol/L ST. [...] MD CHEMISTRY ORDERABL ES Performing Organization Address [facility] de Phone Number [facility] [place] [address] * POCT Glucose (07/23/2017 3:50 AM EDT) [facility] Glucose, POC 126 65 - 199 mg/dL [facility] Comment: Supplemental ranges: <140 mg/dL before meals <180 mg/dL all other times of the day Blood specimen (specimen) 07/23/2017 3:50 AM EDT 07/23/2017 3:50 AM EDT Sriram Contreras MD POINT OF CARE TEST ORDERABLES Performing Organization Address [facility] Co de Phone Number [facility] [place] [address] * (ABNORMAL) APTT (07/23/2017 1:53 AM EDT) [facility] Partial Thromboplastin Time 119(H) 25 - [address] [facility] Comment: The recommended therapeutic range for full dose, unfractionated heparin at [facility] is 80 ? 114 seconds. The use of the anti-Xa (heparin) level rather than the PTT is recommended for monitoring anticoagulation intensity in critically ill patients receiving unfractionated heparin by continuous IV infusion. Blood specimen (specimen) 07/23/2017 1:53 AM EDT 07/23/2017 2:01 AM EDT Narrative Resulting Agency Comment Spec In Lab Sriram Contreras MD HEMATOLOGY ORDERAB LES [facility] [place] [address] * (ABNORMAL) Differential, Automated (07/23/2017 12:45 AM EDT) Neutrophil % 63.2 % [facility] Neutrophil Absolute 6.47(H) 1.70 - 6.10 x10(3)/mc L [facility] Lymph % 20.9 % [facility] Lymphocytes Abs 2.1 0.9 - 3.2 x10(3)/mc L [facility] Monocyte % 7.6 % [facility] Monocyte Abs 0.8 0.3 - 0.9 x10(3)/mc L [facility] Eos % 2.8 % [facility] Eosinophils Abs 0.3 0.0 - 0.4 x10(3)/mc L [facility] Basophil % 0.7 % [facility] Baso Absolute 0.1 0.0 - 0.1 x10(3)/mc L ST. [...] differential will be performed. Immature Gran Absolute 0.49(H) 0.00 - 0.04 x10(3)/mc L [facility] Blood specimen (specimen) 07/23/2017 12:45 AM EDT 07/23/2017 12:51 AM EDT Narrative Resulting Agency Comment Spec In Lab Sriram Contreras MD HEMATOLOGY ORDERAB LES [facility] [place] [address] * (ABNORMAL) Hemogram (07/23/2017 12:45 AM EDT) White Blood Cell 10.2(H) 4.0 - 9.5 x10(3)/mc L [facility] Red Blood Cell 3.62(L) 4.58 - 5.54 x10(6)/mc L [facility] Hemoglobin 11.1(L) 13.7 - 16.5 gm/dL [facility] Hematocrit 33.5(L) 40.5 - 48.5 % [facility] Mean Cell Volume 92.5 82.9 - 93.[address] [facility] Mean Cell Hemoglobin 30.7 27.5 - 32.[address] [facility] Mean Cell Hemoglobin Concentration 33.1 32.0 - 35.7 gm/dL [facility] Platelet 165 145 - 357 x10(3)/mc L [facility] RDW Standard Deviation 46.6(H) 36.0 - 45.[address] [facility] RDW coefficient of variation 13.7 11.4 - 13.8 % [facility] Mean Platelet Volume 9.9 7.6 - 12.9 [facility] NRBC% auto 0.0 % [facility] NRBC Absolute 0.000 0.000 - 0.000 x10(3)/mc L [facility] Blood specimen (specimen) 07/23/2017 12:45 AM EDT 07/23/2017 12:51 AM EDT Narrative Resulting Agency Comment Spec In Lab Sriram Contreras MD HEMATOLOGY ORDERAB LES [facility] [place] [address] * (ABNORMAL) Basic Metabolic Panel (non-fasting) (07/23/2017 12:45 AM EDT) Glucose 127 65 - 199 mg/dL [facility] Comment:Diabetes: >=200 mg/d L plus symptoms Blood Urea Nitrogen 20 10 - 20 mg/dL [facility] Creatinine 0.65(L) 0.80 - 1.50 mg/dL [facility] Comment: Please note that the pediatric reference intervals supplied above were not validated at [facility]. Results from pediatric patients should be interpreted [...] - 107 mmol/L [facility] Carbon Dioxide 26 22 - 31 mmol/L [facility] Anion Gap 11 5 - 15 mmol/L [facility] Calcium 8.3(L) 8.5 - 10.5 mg/dL [facility] Est Glomerular Filtration Rate >60 >=60 [facility] Comment: This estimated GFR (eGFR) value [...] the following links into your internet browser. [email or web address] Blood specimen (specimen) 07/23/2017 12:45 AM EDT 07/23/2017 12:51 AM EDT Narrative Resulting Agency Comment Spec In Lab Sriram Contreras MD CHEMISTRY ORDERABL ES Performing Organization Address [facility] Co de Phone Number [facility] [place] [address] * POCT Glucose (07/22/2017 11:59 PM EDT) Glucose, POC 113 65 - 199 mg/dL [facility] Comment: Supplemental ranges: <140 mg/dL before meals <180 mg/dL all other times of the day Blood specimen (specimen) 07/22/2017 11:59 PM EDT 07/22/2017 11:59 PM EDT Sriram Contreras MD POINT OF CARE TEST ORDERABLES Performing Organization Address [facility] Co de Phone Number [facility] [place] [address] * POCT Glucose (07/22/2017 8:07 PM EDT) Glucose, POC 111 65 - 199 mg/dL [facility] Comment: Supplemental ranges: <140 mg/dL before meals <180 mg/dL all other times of the day Blood specimen (specimen) 07/22/2017 8:07 PM EDT 07/22/2017 8:07 PM EDT Sriram Contreras MD POINT OF CARE TEST ORDERABLES Performing Organization Address [facility] Co de Phone Number [facility] [place] [address] * POCT Glucose (07/22/2017 4:00 PM EDT) Glucose, POC 112 65 - 199 mg/dL [facility] Comment: Supplemental ranges: <140 mg/dL before meals <180 mg/dL all other times of the day Blood specimen (specimen) 07/22/2017 4:00 PM EDT 07/22/2017 4:00 PM EDT Sriram Contreras MD POINT OF CARE TEST ORDERABLES Performing Organization Address [facility] de Phone Number [facility] [place] [address] * (ABNORMAL) APTT (07/22/2017 4:00 PM EDT) Partial Thromboplastin Time 92(H) 25 - [address] [facility] Comment: The recommended therapeutic range for full dose, unfractionated heparin at [facility] is 80 ? 114 seconds. The use of the anti-Xa (heparin) level rather than the PTT is recommended for monitoring anticoagulation intensity in critically ill patients receiving unfractionated heparin by continuous IV infusion. Blood specimen (specimen) 07/22/2017 4:00 PM EDT 07/22/2017 4:18 PM EDT Narrative Resulting Agency Comment Spec In Lab Sriram Contreras MD HEMATOLOGY ORDERAB LES Performing Organization Address [facility] de Phone Number [facility] [place] [address] * POCT Glucose (07/22/2017 11:45 AM EDT) [facility] Signature Glucose, POC 111 65 - 199 mg/dL [facility] Comment: Supplemental ranges: <140 mg/dL before meals <180 mg/dL all other times of the day Blood specimen (specimen) 07/22/2017 11:45 AM EDT 07/22/2017 11:45 AM EDT Sriram Contreras MD POINT OF CARE TEST ORDERABLES Performing Organization Address [facility] Co de Phone Number [facility] [place] [address] * (ABNORMAL) APTT (07/22/2017 8:30 AM EDT) Partial Thromboplastin Time 83(H) 25 - [address] [facility] Comment: The recommended therapeutic range for full dose, unfractionated heparin at [facility] is 80 ? 114 seconds. The use of the anti-Xa (heparin) level rather than the PTT is recommended for monitoring anticoagulation intensity in critically ill patients receiving unfractionated heparin by continuous IV infusion. Blood specimen (specimen) 07/22/2017 8:30 AM EDT 07/22/2017 8:39 AM EDT Narrative Resulting Agency Comment Spec In Lab Sriram Contreras MD HEMATOLOGY ORDERAB LES Performing Organization Address [facility] Co de Phone Number [facility] [place] [address] * POCT Glucose (07/22/2017 8:28 AM EDT) Glucose, POC 118 65 - 199 mg/dL [facility] Comment: Supplemental ranges: <140 mg/dL before meals <180 mg/dL all other times of the day Blood specimen (specimen) 07/22/2017 8:28 AM EDT 07/22/2017 8:28 AM EDT Sriram Contreras MD POINT OF CARE TEST ORDERABLES Performing Organization Address [facility] Co de Phone Number [facility] [place] [address] * (ABNORMAL) BLOOD GAS 2 ARTERIAL (07/22/2017 8:27 AM EDT) pH, Arterial 7.42 7.35 - 7.45 [facility] PCO2, Arterial 39 35 - [address] [facility] PO2, Arterial 78(L) 85 - [address] [facility] Bicarbonate, Arterial 24.8 20.0 - 26.0 mmol/L [facility] Base Excess, Arterial 0.3 -3.0 - 3.0 mmol/L [facility] Hgb Blood Gas 13.4(L) 13.7 - 16.5 gm/dL [facility] Oxyhemoglobin, Arterial 94.2 94.0 - 97.0 % [facility] Carboxyhemoglob in, Arterial 0.3 % [facility] Comment: Nonsmokers: 0.5-1.5% COHB Smokers: Variable, but usually less than 10% Toxic: 20-30% COHB Lethal: Greater than 60% COHB Methemoglobin, Arterial 0.6 <=1.5 % [facility] Na Whole Blood 140 135 [facility] FIO2 Art 40 % [facility] PF Ratio Art 195 [facility] Blood specimen (specimen) 07/22/2017 8:27 AM EDT 07/22/2017 8:27 AM EDT Sriram Contreras MD POINT OF CARE TEST ORDERABLES Performing Organization Address City/State/[facility] Co de Phone Number [facility] [place] [address] * (ABNORMAL) Differential, Automated (07/22/2017 3:10 AM EDT) Neutrophil % 72.0 % [facility] Neutrophil Absolute 8.75(H) 1.70 - 6.10 x10(3)/mc L [facility] Lymph % 15.0 % [facility] Lymphocytes Abs 1.8 0.9 - 3.2 x10(3)/mc L [facility] Monocyte % 8.0 % [facility] Monocyte Abs 1.0(H) 0.3 - 0.9 x10(3)/[facility] Eos % 2.4 % [facility] Eosinophils Abs 0.3 0.0 - 0.4 x10(3)/[facility] Basophil % 0.3 % [facility] Baso Absolute 0.0 0.0 - 0.1 x10(3)/[facility] Immature Gran % 2.30 % [facility] Comment: Immature granulocytes(IG's)percentage and absolute count will include metamyelocytes, myelocytes, and promyelocytes. Blood smears from CBCs yielding IG's will be scanned manually for concordance. If this scan disagrees with the automated IG or if promyelocytes are noted, a manual differential will be performed. Immature Gran Absolute 0.28(H) 0.00 - 0.04 x10(3)/[facility] Blood specimen (specimen) 07/22/2017 3:10 AM EDT 07/22/2017 3:15 AM EDT Narrative Resulting Agency Comment Spec In Lab Sriram Contreras MD HEMATOLOGY ORDERAB LES Performing Organization Address City/State/[facility] Co de Phone Number [facility] [place] [address] * (ABNORMAL) Hemogram (07/22/2017 3:10 AM EDT) White Blood Cell 12.2(H) 4.0 - 9.5 x10(3)/[facility] Red Blood Cell 4.05(L) 4.58 - 5.54 x10(6)/[facility] Hemoglobin 12.5(L) 13.7 - 16.5 gm/dL [facility] Hematocrit 37.9(L) 40.5 - 48.5 % [facility] Mean Cell Volume 93.6(H) 82.9 - 93.[address] [facility] Mean Cell Hemoglobin 30.9 27.5 - 32.[address] [facility] Mean Cell Hemoglobin Concentration 33.0 32.0 - 35.7 gm/dL [facility] Platelet 168 145 - 357 x10(3)/mc L [facility] RDW Standard Deviation 48.9(H) 36.0 - 45.[address] [facility] RDW coefficient of variation 14.1(H) 11.4 - 13.8 % [facility] Mean Platelet Volume 10.2 7.6 - 12.[address] [facility] NRBC% auto 0.0 % [facility] NRBC Absolute 0.000 0.000 - 0.000 x10(3)/mc L [facility] Blood specimen (specimen) 07/22/2017 3:10 AM EDT 07/22/2017 3:15 AM EDT Narrative Resulting Agency Comment Spec In Lab Sriram Contreras MD HEMATOLOGY ORDERAB LES Performing Organization Address [facility] de Phone Number [facility] [place] [address] * (ABNORMAL) APTT (07/22/2017 3:10 AM EDT) [facility] Partial Thromboplastin Time 89(H) 25 - [address] [facility] Comment: The recommended therapeutic range for full dose, unfractionated heparin at [facility] is 80 ? 114 seconds. The use of the anti-Xa (heparin) level rather than the PTT is recommended for monitoring anticoagulation intensity in critically ill patients receiving unfractionated heparin by continuous IV infusion. Blood specimen (specimen) 07/22/2017 3:10 AM EDT 07/22/2017 3:15 AM EDT Narrative Resulting Agency Comment Spec In Lab Sriram Contreras MD HEMATOLOGY ORDERAB LES Performing Organization Address [facility] Co de Phone Number [facility] [place] [address] * (ABNORMAL) Basic Metabolic Panel (non-fasting) (07/22/2017 3:10 AM EDT) Glucose 121 65 - 199 mg/dL [facility] Comment:Diabetes: >=200 mg/d L plus symptoms Blood Urea Nitrogen 23(H) 10 - 20 mg/dL [facility] Creatinine 0.76(L) 0.80 - 1.50 mg/dL [facility] Comment: Please note that the pediatric reference intervals supplied above were not validated at [facility]. Results from pediatric patients should be interpreted [...] - 107 mmol/L [facility] Carbon Dioxide 25 22 - 31 mmol/L [facility] Anion Gap 13 5 - 15 mmol/L [facility] Calcium 8.3(L) 8.5 - 10.5 mg/dL [facility] Est Glomerular Filtration Rate >60 >=60 [facility] Comment: This estimated GFR (eGFR) value [...] the following links into your internet browser. [email or web address] Blood specimen (specimen) 07/22/2017 3:10 AM EDT 07/22/2017 3:15 AM EDT Narrative Resulting Agency Comment Spec In Lab Sriram Contreras MD CHEMISTRY ORDERABL ES Performing Organization Address [facility] Co de Phone Number [facility] [place] [address] * POCT Glucose (07/22/2017 3:08 AM EDT) Glucose, POC 109 65 - 199 mg/dL [facility] Comment: Supplemental ranges: <140 mg/dL before meals <180 mg/dL all other times of the day Blood specimen (specimen) 07/22/2017 3:08 AM EDT 07/22/2017 3:08 AM EDT Sriram Contreras MD POINT OF CARE TEST ORDERABLES Performing Organization Address [facility] Co de Phone Number [facility] [place] [address] * POCT Glucose (07/21/2017 11:52 PM EDT) Glucose, POC 135 65 - 199 mg/dL [facility] Comment: Supplemental ranges: <140 mg/dL before meals <180 mg/dL all other times of the day Blood specimen (specimen) 07/21/2017 11:52 PM EDT 07/21/2017 11:52 PM EDT Sriram Contreras MD POINT OF CARE TEST ORDERABLES Performing Organization Address [facility] Co de Phone Number [facility] [place] [address] * EKG 12 Lead (07/21/2017 10:42 PM EDT) Ventricular rate 75 BPM MUSE SYSTEM Atrial Rate 258 BPM MUSE SYSTEM QRS Duration 86 ms MUSE SYSTEM Q-T Interval 400 ms MUSE SYSTEM QTC Calculated (Bezet) 446 ms MUSE SYSTEM Calculated R [place] 61 degrees MUSE SYSTEM Calculated T [place] 136 degrees MUSE SYSTEM INTERPRETATION Atrial fibrillation with premature ventricular or aberrantly conducted complexes Nonspecific T wave abnormality Abnormal ECG When compared with ECG of 20-JUL-2017 20:40, Nonspecific T wave abnormality now evident in Anterior leads Confirmed by MD REAGAN SALVATORE ([id number]) on 07/22/2017 10:00:08 AM MUSE SYSTEM 07/21/2017 10:4 2 PM EDT 07/22/2017 10:00 AM EDT Sriram Contreras MD ECG ORDERABLES MUSE SYSTEM * Magnesium (07/21/2017 10:35 PM EDT) Magnesium 0.80 0.69 - 1.07 mmol/L [facility] Blood specimen (specimen) 07/21/2017 10:35 PM EDT 07/21/2017 10:40 PM EDT Narrative Resulting Agency Comment Spec In Lab Sriram Contreras MD CHEMISTRY ORDERABL ES Performing Organization Address [facility] Co de Phone Number [facility] [place] [address] * (ABNORMAL) Basic Metabolic Panel (non-fasting) (07/21/2017 10:35 PM EDT) Glucose 135 65 - 199 mg/dL [facility] Comment:Diabetes: >=200 mg/d L plus symptoms Blood Urea Nitrogen 23(H) 10 - 20 mg/dL [facility] Creatinine 0.88 0.80 - 1.50 mg/dL [facility] Comment: Please note that the pediatric reference intervals supplied above were not validated at [facility]. Results from pediatric patients should be interpreted [...] - 107 mmol/L [facility] Carbon Dioxide 25 22 - 31 mmol/L [facility] Anion Gap 12 5 - 15 mmol/L [facility] Calcium 8.7 8.5 - 10.5 mg/dL [facility] Est Glomerular Filtration Rate >60 >=60 [facility] Comment: This estimated GFR (eGFR) value [...] the following links into your internet browser. [email or web address] Blood specimen (specimen) 07/21/2017 10:35 PM EDT 07/21/2017 10:40 PM EDT Narrative Resulting Agency Comment Spec In Lab Sriram Contreras MD CHEMISTRY ORDERABL ES Performing Organization Address [facility] Co de Phone Number [facility] [place] [address] * (ABNORMAL) APTT (07/21/2017 9:10 PM EDT) [facility] Partial Thromboplastin Time 87(H) 25 - [address] [facility] Comment: The recommended therapeutic range for full dose, unfractionated heparin at [facility] is 80 ? 114 seconds. The use of the anti-Xa (heparin) level rather than the PTT is recommended for monitoring anticoagulation intensity in critically ill patients receiving unfractionated heparin by continuous IV infusion. Blood specimen (specimen) 07/21/2017 9:10 PM EDT 07/21/2017 9:17 PM EDT Narrative Resulting Agency Comment Spec In Lab Sriram Contreras MD HEMATOLOGY ORDERAB LES Performing Organization Address [facility]/ZIP Co de Phone Number [facility] [place] [address] * POCT Glucose (07/21/2017 7:49 PM EDT) Glucose, POC 117 65 - 199 mg/dL [facility] Comment: Supplemental ranges: <140 mg/dL before meals <180 mg/dL all other times of the day Blood specimen (specimen) 07/21/2017 7:49 PM EDT 07/21/2017 7:49 PM EDT Sriram Contreras MD POINT OF CARE TEST ORDERABLES Performing Organization Address [facility] Co de Phone Number [facility] [place] [address] * POCT Glucose (07/21/2017 4:10 PM EDT) Glucose, POC 116 65 - 199 mg/dL [facility] Comment: Supplemental ranges: <140 mg/dL before meals <180 mg/dL all other times of the day Blood specimen (specimen) 07/21/2017 4:10 PM EDT 07/21/2017 4:10 PM EDT Sriram Contreras MD POINT OF CARE TEST ORDERABLES Performing Organization Address [facility] de Phone Number [facility] [place] [address] * (ABNORMAL) APTT (07/21/2017 4:10 PM EDT) Partial Thromboplastin Time 78(H) 25 - [address] [facility] Comment: The recommended therapeutic range for full dose, unfractionated heparin at [facility] is 80 ? 114 seconds. The use of the anti-Xa (heparin) level rather than the PTT is recommended for monitoring anticoagulation intensity in critically ill patients receiving unfractionated heparin by continuous IV infusion. Blood specimen (specimen) 07/21/2017 4:10 PM EDT 07/21/2017 4:28 PM EDT Narrative Resulting Agency Comment Spec In Lab Sriram Contreras MD HEMATOLOGY ORDERAB LES Performing Organization Address [facility] Co de Phone Number [facility] [place] [address] * POCT Glucose (07/21/2017 12:04 PM EDT) Pathologist [facility] Glucose, POC 138 65 - 199 mg/dL [facility] Comment: Supplemental ranges: <140 mg/dL before meals <180 mg/dL all other times of the day Blood specimen (specimen) 07/21/2017 12:04 PM EDT 07/21/2017 12:04 PM EDT Sriram Contreras MD POINT OF CARE TEST ORDERABLES Performing Organization Address [facility] de Phone Number [facility] [place] [address] * C. Difficile Screen (07/21/2017 9:00 AM EDT) [facility] C Diff Interp Negative Negative [facility] Comment: C. diff ??Negative Clostridium difficile [...] - GEN ERAL ORDERABLES Performing Organization Address [facility] Co de Phone Number [facility] [place] [address] * Potassium (07/21/2017 8:30 AM EDT) [facility] Potassium 3.8 3.5 - 5.0 mmol/L ST. [...] MD CHEMISTRY ORDERABL ES Performing Organization Address [facility] de Phone Number [facility] [place] [address] * (ABNORMAL) APTT (07/21/2017 8:30 AM EDT) Partial Thromboplastin Time 63(H) 25 - [address] [facility] Comment: The recommended therapeutic range for full dose, unfractionated heparin at [facility] is 80 ? 114 seconds. The use of the anti-Xa (heparin) level rather than the PTT is recommended for monitoring anticoagulation intensity in critically ill patients receiving unfractionated heparin by continuous IV infusion. Blood specimen (specimen) 07/21/2017 8:30 AM EDT 07/21/2017 8:40 AM EDT Narrative Resulting Agency Comment Spec In Lab Sriram Contreras MD HEMATOLOGY ORDERAB LES Performing Organization Address [facility] Phone Number [facility] [place] [address] * POCT Glucose (07/21/2017 8:24 AM EDT) Glucose, POC 131 65 - 199 mg/dL [facility] Comment: Supplemental ranges: <140 mg/dL before meals <180 mg/dL all other times of the day Blood specimen (specimen) 07/21/2017 8:24 AM EDT 07/21/2017 8:24 AM EDT Sriram Contreras MD POINT OF CARE TEST ORDERABLES Performing Organization Address [facility] Co de Phone Number [facility] [place] [address] * (ABNORMAL) BLOOD GAS 2 ARTERIAL (07/21/2017 7:42 AM EDT) pH, Arterial 7.44 7.35 - 7.45 [facility] PCO2, Arterial 37 35 - [address] [facility] PO2, Arterial 72(L) 85 - [address] [facility] Bicarbonate, Arterial 24.5 20.0 - 26.0 mmol/L [facility] Base Excess, Arterial 0.3 -3.0 - 3.0 mmol/L [facility] Hgb Blood Gas 14.0 13.7 - 16.5 gm/dL [facility] Oxyhemoglobin, Arterial 93.8(L) 94.0 - 97.0 % [facility] Carboxyhemoglob in, Arterial 0.3 % [facility] Comment: Nonsmokers: 0.5-1.5% COHB Smokers: Variable, but usually less than 10% Toxic: 20-30% COHB Lethal: Greater than 60% COHB Methemoglobin, Arterial 0.5 <=1.5 % [facility] Na Whole Blood 143 135 [facility] FIO2 Art 40 % [facility] PF Ratio Art 180 [facility] Blood specimen (specimen) 07/21/2017 7:42 AM EDT 07/21/2017 7:42 AM EDT Sriram Contreras MD POINT OF CARE TEST ORDERABLES Performing Organization Address [facility] de Phone Number [facility] [place] [address] * POCT Glucose (07/21/2017 3:21 AM EDT) Glucose, POC 116 65 - 199 mg/dL [facility] Comment: Supplemental ranges: <140 mg/dL before meals <180 mg/dL all other times of the day Blood specimen (specimen) 07/21/2017 3:21 AM EDT 07/21/2017 3:21 AM EDT Sriram Contreras MD POINT OF CARE TEST ORDERABLES Performing Organization Address [facility] de Phone Number [facility] [place] [address] * Potassium (07/21/2017 3:20 AM EDT) Potassium [...] MD CHEMISTRY ORDERABL ES Performing Organization Address [facility] de Phone Number [facility] [place] [address] * (ABNORMAL) APTT (07/21/2017 1:05 AM EDT) Partial Thromboplastin Time 42(H) 25 - [address] [facility] Comment: The recommended therapeutic range for full dose, unfractionated heparin at [facility] is 80 ? 114 seconds. The use of the anti-Xa (heparin) level rather than the PTT is recommended for monitoring anticoagulation intensity in critically ill patients receiving unfractionated heparin by continuous IV infusion. Blood specimen (specimen) 07/21/2017 1:05 AM EDT 07/21/2017 1:08 AM EDT Narrative Resulting Agency Comment Spec In Lab Sriram Contreras MD HEMATOLOGY ORDERAB LES [facility] [place] [address] * (ABNORMAL) Differential, Automated (07/21/2017 12:25 AM EDT) Neutrophil % 75.8 % [facility] Neutrophil Absolute 7.59(H) 1.70 - 6.10 x10(3)/mc L [facility] Lymph % 12.8 % [facility] Lymphocytes Abs 1.3 0.9 - 3.2 x10(3)/mc L [facility] Monocyte % 9.0 % [facility] Monocyte Abs 0.9 0.3 - 0.9 x10(3)/mc L [facility] Eos % 1.1 % [facility] Eosinophils Abs 0.1 0.0 - 0.4 x10(3)/mc L [facility] Basophil % 0.3 % [facility] Baso Absolute 0.0 0.0 - 0.1 x10(3)/mc L ST. [...] differential will be performed. Immature Gran Absolute 0.10(H) 0.00 - 0.04 x10(3)/mc L [facility] Blood specimen (specimen) 07/21/2017 12:25 AM EDT 07/21/2017 12:48 AM EDT Narrative Resulting Agency Comment Spec In Lab Sriram Contreras MD HEMATOLOGY ORDERAB LES Performing Organization Address City/State/[facility] Co de Phone Number [facility] [place] [address] * (ABNORMAL) Hemogram (07/21/2017 12:25 AM EDT) White Blood Cell 10.0(H) 4.0 - 9.5 x10(3)/[facility] Red Blood Cell 4.24(L) 4.58 - 5.54 x10(6)/[facility] Hemoglobin 13.2(L) 13.7 - 16.5 gm/dL [facility] Hematocrit 39.4(L) 40.5 - 48.5 % [facility] Mean Cell Volume 92.9 82.9 - 93.[address] [facility] Mean Cell Hemoglobin 31.1 27.5 - 32.[address] [facility] Mean Cell Hemoglobin Concentration 33.5 32.0 - 35.7 gm/dL [facility] Platelet 163 145 - 357 x10(3)/[facility] RDW Standard Deviation 48.0(H) 36.0 - 45.0 [facility] RDW coefficient of variation 14.1(H) 11.4 - 13.8 % [facility] Mean Platelet Volume 10.2 7.6 - 12.[address] [facility] NRBC% auto 0.0 % [facility] NRBC Absolute 0.000 0.000 - 0.000 x10(3)/[facility] Blood specimen (specimen) 07/21/2017 12:25 AM EDT 07/21/2017 12:48 AM EDT Narrative Resulting Agency Comment Spec In Lab Sriram Contreras MD HEMATOLOGY ORDERAB LES [facility] [place] [address] * (ABNORMAL) Basic Metabolic Panel (non-fasting) (07/21/2017 12:25 AM EDT) Glucose 132 65 - 199 mg/dL [facility] Comment:Diabetes: >=200 mg/d L plus symptoms Blood Urea Nitrogen 22(H) 10 - 20 mg/dL [facility] Creatinine 0.79(L) 0.80 - 1.50 mg/dL [facility] Comment: Please note that the pediatric reference intervals supplied above were not validated at [facility]. Results from pediatric patients should be interpreted [...] - 107 mmol/L [facility] Carbon Dioxide 25 22 - 31 mmol/L [facility] Anion Gap 11 5 - 15 mmol/L [facility] Calcium 8.5 8.5 - 10.5 mg/dL [facility] Est Glomerular Filtration Rate >60 >=60 [facility] Comment: This estimated GFR (eGFR) value [...] the following links into your internet browser. [email or web address] Blood specimen (specimen) 07/21/2017 12:25 AM EDT 07/21/2017 12:48 AM EDT Narrative Resulting Agency Comment Spec In Lab Sriram Contreras MD CHEMISTRY ORDERABL ES [facility] [place] [address] * (ABNORMAL) BLOOD GAS 2 ARTERIAL (07/21/2017 12:21 AM EDT) pH, Arterial 7.44 7.35 - 7.45 [facility] PCO2, Arterial 37 35 - [address] [facility] PO2, Arterial 70(L) 85 - [address] [facility] Bicarbonate, Arterial 24.1 20.0 - 26.0 mmol/L [facility] Base Excess, Arterial 0.1 -3.0 - 3.0 mmol/L [facility] Hgb Blood Gas 14.3 13.7 - 16.5 gm/dL [facility] Oxyhemoglobin, Arterial 92.8(L) 94.0 - 97.0 % [facility] Carboxyhemoglob in, Arterial 0.0 % [facility] Comment: Nonsmokers: 0.5-1.5% COHB Smokers: Variable, but usually less than 10% Toxic: 20-30% COHB Lethal: Greater than 60% COHB Methemoglobin, Arterial 0.4 <=1.5 % [facility] Na Whole Blood 145 135 [facility] FIO2 Art 40 % [facility] PF Ratio Art 175 [facility] Temp Art 37.8 Celsius [facility] Blood specimen (specimen) 07/21/2017 12:21 AM EDT 07/21/2017 12:21 AM EDT Sriram Contreras MD POINT OF CARE TEST ORDERABLES Performing Organization Address [facility] Co de Phone Number [facility] [place] [address] * POCT Glucose (07/21/2017 12:00 AM EDT) Glucose, POC 119 65 - 199 mg/dL [facility] Comment: Supplemental ranges: <140 mg/dL before meals <180 mg/dL all other times of the day Blood specimen (specimen) 07/21/2017 07/21/2017 Sriram Contreras MD POINT OF CARE TEST ORDERABLES Performing Organization Address [facility]/ZIP Co de Phone Number [facility] [place] [address] * Potassium (07/20/2017 9:50 PM EDT) Potassium [...] CHEMISTRY ORDERABL ES Performing Organization Address [facility] Co de Phone Number [facility] [place] [address] * EKG 12 Lead (07/20/2017 8:40 PM EDT) [facility] Ventricular rate 77 BPM MUSE SYSTEM Atrial Rate 394 BPM MUSE SYSTEM QRS Duration 86 ms MUSE SYSTEM Q-T Interval 396 ms MUSE SYSTEM QTC Calculated (Bezet) 448 ms MUSE SYSTEM Calculated R [place] 73 degrees MUSE SYSTEM Calculated T [place] 127 degrees MUSE SYSTEM INTERPRETATION Atrial fibrillation [...] Aguero APRN ECG ORDERABLES Performing Organization Address [facility] de Phone Number MUSE SYSTEM * POCT Glucose (07/20/2017 7:28 PM EDT) [facility] Glucose, POC 126 65 - 199 mg/dL [facility] Comment: Supplemental ranges: <140 mg/dL before meals <180 mg/dL all other times of the day Blood specimen (specimen) 07/20/2017 7:28 PM EDT 07/20/2017 7:28 PM EDT Sriram Contreras MD POINT OF CARE TEST ORDERABLES Performing Organization Address [facility] Co de Phone Number [facility] [place] [address] * (ABNORMAL) Differential, Automated (07/20/2017 5:15 PM EDT) [facility] Neutrophil % 79.7 % [facility] Neutrophil Absolute 8.01(H) 1.70 - 6.10 x10(3)/[facility] LABORAT[facility] Lymph % 10.4 % [facility] Lymphocytes Abs 1.0 0.9 - 3.2 x10(3)/[facility] LABORATORY Monocyte % 8.0 % [facility] Monocyte Abs 0.8 0.3 - 0.9 x10(3)/[facility] LABORATORY Eos % 0.7 % [facility] Eosinophils Abs 0.1 0.0 - 0.4 x10(3)/[facility] LABORATORY Basophil % 0.2 % [facility] Baso Absolute 0.0 0.0 - 0.1 x10(3)/[facility] LABORATORY Immature Gran % 1.00 % [facility] Comment: Immature granulocytes(IG's)percentage and absolute count will include metamyelocytes, myelocytes, and promyelocytes. Blood smears from CBCs yielding IG's will be scanned manually for concordance. If this scan disagrees with the automated IG or if promyelocytes are noted, a manual differential will be performed. Immature Gran Absolute 0.10(H) 0.00 - 0.04 x10(3)/[facility] LABORATORY Blood specimen (specimen) 07/20/2017 5:15 PM EDT 07/20/2017 5:26 PM EDT Narrative Resulting Agency Comment Spec In Lab Sriram Contreras MD HEMATOLOGY ORDERAB LES [facility] [place] [address] * (ABNORMAL) Hemogram (07/20/2017 5:15 PM EDT) White Blood Cell 10.0(H) 4.0 - 9.5 x10(3)/[facility] LABORATORY Red Blood Cell 4.28(L) 4.58 - 5.54 x10(6)/[facility] Hemoglobin 13.3(L) 13.7 - 16.5 gm/dL [facility] Hematocrit 39.9(L) 40.5 - 48.5 % [facility] Mean Cell Volume 93.2(H) 82.9 - 93.[address] [facility] Mean Cell Hemoglobin 31.1 27.5 - 32.[address] [facility] Mean Cell Hemoglobin Concentration 33.3 32.0 - 35.7 gm/dL [facility] Platelet 163 145 - 357 x10(3)/mc L [facility] RDW Standard Deviation 47.7(H) 36.0 - 45.[address] [facility] RDW coefficient of variation 14.1(H) 11.4 - 13.8 % [facility] Mean Platelet Volume 10.1 7.6 - 12.[address] [facility] NRBC% auto 0.0 % [facility] NRBC Absolute 0.000 0.000 - 0.000 x10(3)/mc L [facility] Blood specimen (specimen) 07/20/2017 5:15 PM EDT 07/20/2017 5:26 PM EDT Narrative Resulting Agency Comment Spec In Lab Sriram Contreras MD HEMATOLOGY ORDERAB LES Performing Organization Address City/State/[facility] Co de Phone Number [facility] [place] [address] * APTT (07/20/2017 5:15 PM EDT) [facility] Partial Thromboplastin Time 28 25 - [address] [facility] Comment: The recommended therapeutic range for full dose, unfractionated heparin at [facility] is 80 ? 114 seconds. The use of the anti-Xa (heparin) level rather than the PTT is recommended for monitoring anticoagulation intensity in critically ill patients receiving unfractionated heparin by continuous IV infusion. Blood specimen (specimen) 07/20/2017 5:15 PM EDT 07/20/2017 5:26 PM EDT Narrative Resulting Agency Comment Spec In Lab Sriram Contreras MD HEMATOLOGY ORDERAB LES Performing Organization Address City/[facility]/ZIP Co de Phone Number [facility] [place] [address] * Magnesium (07/20/2017 4:50 PM EDT) [facility] Magnesium 1.00 0.69 - 1.07 mmol/L [facility] Blood specimen (specimen) 07/20/2017 4:50 PM EDT 07/20/2017 5:10 PM EDT Narrative Resulting Agency Comment Spec In Lab Sylvia Vaughn MD CHEMISTRY ORDERABLES Performing Organization Address [facility] Co de Phone Number [facility] [place] [address] * (ABNORMAL) Basic Metabolic Panel (non-fasting) (07/20/2017 4:50 PM EDT) [facility] Glucose 143 65 - 199 mg/dL [facility] Comment:Diabetes: >=200 mg/d L plus symptoms Blood Urea Nitrogen 23(H) 10 - 20 mg/dL [facility] Creatinine 0.85 0.80 - 1.50 mg/dL [facility] Comment: Please note that the pediatric reference intervals supplied above were not validated at [facility]. Results from pediatric patients should be interpreted [...] - 107 mmol/L [facility] Carbon Dioxide 25 22 - 31 mmol/L [facility] Anion Gap 11 5 - 15 mmol/L [facility] Calcium 8.5 8.5 - 10.5 mg/dL [facility] Est Glomerular Filtration Rate >60 >=60 [facility] Comment: This estimated GFR (eGFR) value [...] the following links into your internet browser. [email or web address] Blood specimen (specimen) 07/20/2017 4:50 PM EDT 07/20/2017 5:10 PM EDT Narrative Resulting Agency Comment Spec In Lab Sylvia Vaughn MD CHEMISTRY ORDERABLES Performing Organization Address City/[facility]/ZIP Co de Phone Number [facility] [place] [address] * POCT Glucose (07/20/2017 3:41 PM EDT) Glucose, POC 138 65 - 199 mg/dL [facility] Comment: Supplemental ranges: <140 mg/dL before meals <180 mg/dL all other times of the day Blood specimen (specimen) 07/20/2017 3:41 PM EDT 07/20/2017 3:41 PM EDT Sriram Contreras MD POINT OF CARE TEST ORDERABLES [facility] [place] [address] * CTA Chest for Pulmonary Embolus w [...] - GEN ERAL ORDERABLES Performing Organization Address City/[facility]/ZIP Co de Phone Number [facility] [place] [address] * POCT Glucose (07/20/2017 11:45 AM EDT) Pathologist [facility] Glucose, POC 125 65 - 199 mg/dL [facility] Comment: Supplemental ranges: <140 mg/dL before meals <180 mg/dL all other times of the day Blood specimen (specimen) 07/20/2017 11:45 AM EDT 07/20/2017 11:45 AM EDT Sriram Contreras MD POINT OF CARE TEST ORDERABLES Performing Organization Address [facility]/ZIP Co de Phone Number [facility] [place] [address] * (ABNORMAL) BLOOD GAS 2 ARTERIAL (07/20/2017 11:43 AM EDT) pH, Arterial 7.45 7.35 - 7.45 [facility] PCO2, Arterial 35 35 - [address] [facility] PO2, Arterial 57(L) 85 - [address] [facility] Bicarbonate, Arterial 23.9 20.0 - 26.0 mmol/L [facility] Base Excess, Arterial 0.1 -3.0 - 3.0 mmol/L [facility] Hgb Blood Gas 14.6 13.7 - 16.5 gm/dL [facility] Oxyhemoglobin, Arterial 89.5(L) 94.0 - 97.0 % [facility] Carboxyhemoglob in, Arterial 0.0 % [facility] Comment: Nonsmokers: 0.5-1.5% COHB Smokers: Variable, but usually less than 10% Toxic: 20-30% COHB Lethal: Greater than 60% COHB Methemoglobin, Arterial 0.5 <=1.5 % [facility] Na Whole Blood 145 135 [facility] FIO2 Art 35 % [facility] PF Ratio Art 163 [facility] Temp Art 37.6 Celsius [facility] Blood specimen (specimen) 07/20/2017 11:43 AM EDT 07/20/2017 11:43 AM EDT Sriram Contreras MD POINT OF CARE TEST ORDERABLES Performing Organization Address City/State/[facility] Co de Phone Number [facility] [place] [address] * Potassium (07/20/2017 10:15 AM EDT) Potassium [...] CHEMISTRY ORDERABL ES [facility] [place] [address] * XR Chest PA or AP 1 [...] MD - 07/20/2017 7:51 AM EDT Hedy Cat DO ? 07/19/2017 ??5:56 PM Intubation Procedure Note Reason for Intubation: ?Hypoxemia. Procedure Diagnosis: hypoxic respiratory failure Location of Procedure: ICU [facility]. Risks and Benefits: The risks and [...] of the procedure. Hedy Cat DO 07/19/2017 Sriram Contreras MD PROCEDURE/[facility] RGICAL ORDERABLES * POCT Glucose (07/20/2017 7:29 AM EDT) [facility] Glucose, POC 134 65 - 199 mg/dL [facility] Comment: Supplemental ranges: <140 mg/dL before meals <180 mg/dL all other times of the day Blood specimen (specimen) 07/20/2017 7:29 AM EDT 07/20/2017 7:29 AM EDT Sriram Contreras MD POINT OF CARE TEST ORDERABLES Performing Organization Address [facility] Phone Number [facility] [place] [address] * Potassium (07/20/2017 7:28 AM EDT) [facility] Potassium 4.0 3.5 - 5.0 mmol/L ST. [...] MD CHEMISTRY ORDERABL ES Performing Organization Address [facility] de Phone Number [facility] [place] [address] * (ABNORMAL) Differential, Automated (07/20/2017 3:15 AM EDT) [facility] Neutrophil % 83.6 % [facility] Neutrophil Absolute 8.93(H) 1.70 - 6.10 x10(3)/mc L [facility] Lymph % 9.1 % [facility] Lymphocytes Abs 1.0 0.9 - 3.2 x10(3)/mc L [facility] Monocyte % 6.3 % [facility] Monocyte Abs 0.7 0.3 - 0.9 x10(3)/mc L [facility] Eos % 0.1 % [facility] Eosinophils Abs 0.0 0.0 - 0.4 x10(3)/[facility] LABORATORY Basophil % 0.2 % [facility] Baso Absolute 0.0 0.0 - 0.1 x10(3)/[facility] LABORATORY Immature Gran % 0.70 % [facility] Comment: Immature granulocytes(IG's)percentage and absolute count will include metamyelocytes, myelocytes, and promyelocytes. Blood smears from CBCs yielding IG's will be scanned manually for concordance. If this scan disagrees with the automated IG or if promyelocytes are noted, a manual differential will be performed. Immature Gran Absolute 0.07(H) 0.00 - 0.04 x10(3)/[facility] LABORATORY Blood specimen (specimen) 07/20/2017 3:15 AM EDT 07/20/2017 3:58 AM EDT Narrative Resulting Agency Comment Spec In Lab Sriram Contreras MD HEMATOLOGY ORDERAB LES [facility] [place] [address] * (ABNORMAL) Hemogram (07/20/2017 3:15 AM EDT) White Blood Cell 10.7(H) 4.0 - 9.5 x10(3)/[facility] LABORAT[facility] Red Blood Cell 4.40(L) 4.58 - 5.54 x10(6)/[facility] Hemoglobin 13.7 13.7 - 16.5 gm/dL [facility] Hematocrit 39.6(L) 40.5 - 48.5 % [facility] Mean Cell Volume 90.0 82.9 - 93.[address] [facility] Mean Cell Hemoglobin 31.1 27.5 - 32.[address] [facility] Mean Cell Hemoglobin Concentration 34.6 32.0 - 35.7 gm/dL [facility] Platelet 186 145 - 357 x10(3)/mc L [facility] RDW Standard Deviation 45.8(H) 36.0 - 45.[address] [facility] RDW coefficient of variation 13.9(H) 11.4 - 13.8 % [facility] Mean Platelet Volume 9.9 7.6 - 12.[address] [facility] NRBC% auto 0.0 % [facility] NRBC Absolute 0.000 0.000 - 0.000 x10(3)/mc L [facility] Blood specimen (specimen) 07/20/2017 3:15 AM EDT 07/20/2017 3:58 AM EDT Narrative Resulting Agency Comment Spec In Lab Sriram Contreras MD HEMATOLOGY ORDERAB LES Performing Organization Address City/State/[facility] Co de Phone Number [facility] [place] [address] * (ABNORMAL) Basic Metabolic Panel (non-fasting) (07/20/2017 3:15 AM EDT) Glucose 126 65 - 199 mg/dL [facility] Comment:Diabetes: >=200 mg/d L plus symptoms Blood Urea Nitrogen 23(H) 10 - 20 mg/dL [facility] Creatinine 0.97 0.80 - 1.50 mg/dL [facility] Comment: Please note that the pediatric reference intervals supplied above were not validated at [facility]. Results from pediatric patients should be interpreted [...] - 107 mmol/L [facility] Carbon Dioxide 23 22 - 31 mmol/L [facility] Anion Gap 14 5 - 15 mmol/L [facility] Calcium 8.5 8.5 - 10.5 mg/dL [facility] Est Glomerular Filtration Rate >60 >=60 [facility] Comment: This estimated GFR (eGFR) value [...] the following links into your internet browser. [email or web address] Blood specimen (specimen) 07/20/2017 3:15 AM EDT 07/20/2017 3:58 AM EDT Narrative Resulting Agency Comment Spec In Lab Sriram Contreras MD CHEMISTRY ORDERABL ES Performing Organization Address City/[facility]/ZIP Co de Phone Number [facility] [place] [address] * POCT Glucose (07/20/2017 3:13 AM EDT) Glucose, POC 114 65 - 199 mg/dL [facility] Comment: Supplemental ranges: <140 mg/dL before meals <180 mg/dL all other times of the day Blood specimen (specimen) 07/20/2017 3:13 AM EDT 07/20/2017 3:13 AM EDT Sriram Contreras MD POINT OF CARE TEST ORDERABLES Performing Organization Address City/[facility]/ZIP Co de Phone Number [facility] [place] [address] * (ABNORMAL) BLOOD GAS 2 ARTERIAL (07/19/2017 11:36 PM EDT) pH, Arterial 7.51(H) 7.35 - 7.45 [facility] PCO2, Arterial 29(L) 35 - [address] [facility] PO2, Arterial 77(L) 85 - [address] [facility] Bicarbonate, Arterial 22.2 20.0 - 26.0 mmol/L [facility] Base Excess, Arterial -0.8 -3.0 - 3.0 mmol/L [facility] Hgb Blood Gas 14.7 13.7 - 16.5 gm/dL [facility] Oxyhemoglobin, Arterial 94.7 94.0 - 97.0 % [facility] Carboxyhemoglob in, Arterial 0.3 % [facility] Comment: Nonsmokers: 0.5-1.5% COHB Smokers: Variable, but usually less than 10% Toxic: 20-30% COHB Lethal: Greater than 60% COHB Methemoglobin, Arterial 0.7 <=1.5 % [facility] Na Whole Blood 142 135 [facility] FIO2 Art 50 % [facility] PF Ratio Art 154 [facility] Blood specimen (specimen) 07/19/2017 11:36 PM EDT 07/19/2017 11:36 PM EDT Sriram Contreras MD POINT OF CARE TEST ORDERABLES Performing Organization Address [facility] Co de Phone Number [facility] [place] [address] * POCT Glucose (07/19/2017 11:31 PM EDT) Glucose, POC 110 65 - 199 mg/dL [facility] Comment: Supplemental ranges: <140 mg/dL before meals <180 mg/dL all other times of the day Blood specimen (specimen) 07/19/2017 11:31 PM EDT 07/19/2017 11:31 PM EDT Sriram Contreras MD POINT OF CARE TEST ORDERABLES Performing Organization Address [facility] Co de Phone Number [facility] [place] [address] * Potassium (07/19/2017 11:30 PM EDT) Potassium [...] CHEMISTRY ORDERABL ES Performing Organization Address [facility] Co de Phone Number [facility] [place] [address] * POCT Glucose (07/19/2017 7:45 PM EDT) Glucose, POC 100 65 - 199 mg/dL [facility] Comment: Supplemental ranges: <140 mg/dL before meals <180 mg/dL all other times of the day Blood specimen (specimen) 07/19/2017 7:45 PM EDT 07/19/2017 7:45 PM EDT Sriram Contreras MD POINT OF CARE TEST ORDERABLES Performing Organization Address [facility] [place] [address] * Blood culture (07/19/2017 7:00 PM EDT) Blood Culture No growth at [address] [facility] Blood specimen (specimen) STRUCTURE OF LEFT WRIST REGION / Unknown 07/19/2017 7:00 PM EDT 07/19/2017 7:50 PM EDT Narrative Resulting Agency Comment Spec In Lab Sriram Contreras MD MICROBIOLOGY - BLO OD ORDERABLES Performing Organization Address [facility] [place] [address] * Blood culture (07/19/2017 6:50 PM EDT) Blood Culture No growth at [address] [facility] Blood specimen (specimen) STRUCTURE OF RIGHT WRIST REGION / Unknown 07/19/2017 6:50 PM EDT 07/19/2017 7:51 PM EDT Narrative Resulting Agency Comment Spec In Lab Sriram Contreras MD MICROBIOLOGY - BLO OD ORDERABLES Performing Organization Address [facility] [place] [address] * XR Chest PA or AP 1 [...] GAS 2 ARTERIAL (07/19/2017 5:12 PM EDT) pH, Arterial 7.49(H) 7.35 - 7.45 [facility] PCO2, Arterial 32(L) 35 - [address] [facility] PO2, Arterial 66(L) 85 - [address] [facility] Bicarbonate, Arterial 23.2 20.0 - 26.0 mmol/L [facility] Base Excess, Arterial -0.2 -3.0 - 3.0 mmol/L [facility] Hgb Blood Gas 15.5 13.7 - 16.5 gm/dL [facility] Oxyhemoglobin, Arterial 93.1(L) 94.0 - 97.0 % [facility] Carboxyhemoglob in, Arterial 0.4 % [facility] Comment: Nonsmokers: 0.5-1.5% COHB Smokers: Variable, but usually less than 10% Toxic: 20-30% COHB Lethal: Greater than 60% COHB Methemoglobin, Arterial 0.6 <=1.5 % [facility] Na Whole Blood 158(H) 135 [facility] FIO2 Art 100 % [facility] PF Ratio Art 66 [facility] Blood specimen (specimen) 07/19/2017 5:12 PM EDT 07/19/2017 5:12 PM EDT Sriram Contreras MD POINT OF CARE TEST ORDERABLES [facility] [place] [address] * EKG 12 Lead (07/19/2017 4:55 PM EDT) Ventricular rate 85 BPM MUSE SYSTEM Atrial Rate 326 BPM MUSE SYSTEM QRS Duration 92 ms MUSE SYSTEM Q-T Interval 388 ms MUSE SYSTEM QTC Calculated (Bezet) 461 ms MUSE SYSTEM Calculated R [place] 65 degrees MUSE SYSTEM Calculated T [place] 4 degrees MUSE SYSTEM INTERPRETATION Atrial fibrillation [...] CHEMISTRY ORDERABL ES [facility] [place] [address] * (ABNORMAL) Basic Metabolic Panel (non-fasting) (07/19/2017 4:50 PM EDT) Glucose 118 65 - 199 mg/dL [facility] Comment:Diabetes: >=200 mg/d L plus symptoms Blood Urea Nitrogen 19 10 - 20 mg/dL [facility] Creatinine 0.79(L) 0.80 - 1.50 mg/dL [facility] Comment: Please note that the pediatric reference intervals supplied above were not validated at [facility]. Results from pediatric patients should be interpreted [...] - 107 mmol/L [facility] Carbon Dioxide 23 22 - 31 mmol/L [facility] Anion Gap 15 5 - 15 mmol/L [facility] Calcium 8.7 8.5 - 10.5 mg/dL [facility] Est Glomerular Filtration Rate >60 >=60 [facility] Comment: This estimated GFR (eGFR) value [...] the following links into your internet browser. [email or web address] Blood specimen (specimen) 07/19/2017 4:50 PM EDT 07/19/2017 5:05 PM EDT Narrative Resulting Agency Comment Spec In Lab Sriram Contreras MD CHEMISTRY ORDERABL ES Performing Organization Address [facility] Phone Number [facility] [place] [address] * Magnesium (07/19/2017 4:50 PM EDT) Magnesium 0.86 0.69 - 1.07 mmol/L [facility] Blood specimen (specimen) 07/19/2017 4:50 PM EDT 07/19/2017 5:05 PM EDT Narrative Resulting Agency Comment Spec In Lab Sriram Contreras MD CHEMISTRY ORDERABL ES Performing Organization Address [facility] Phone Number [facility] [place] [address] * POCT Glucose (07/19/2017 3:37 PM EDT) Glucose, POC 101 65 - 199 mg/dL [facility] Comment: Supplemental ranges: <140 mg/dL before meals <180 mg/dL all other times of the day Blood specimen (specimen) 07/19/2017 3:37 PM EDT 07/19/2017 3:37 PM EDT Sriram Contreras MD POINT OF CARE TEST ORDERABLES [facility] [place] [address] * XR Chest PA or AP 1 [...] * POCT Glucose (07/19/2017 12:36 PM EDT) Glucose, POC 100 65 - 199 mg/dL [facility] Comment: Supplemental ranges: <140 mg/dL before meals <180 mg/dL all other times of the day Blood specimen (specimen) 07/19/2017 12:36 PM EDT 07/19/2017 12:36 PM EDT Sriram Contreras MD POINT OF CARE TEST ORDERABLES [facility] [place] [address] * Potassium (07/19/2017 12:30 PM EDT) Potassium [...] CHEMISTRY ORDERABL ES Performing Organization Address [facility] de Phone Number [facility] [place] [address] * (ABNORMAL) BLOOD GAS 2 ARTERIAL (07/19/2017 12:17 PM EDT) pH, Arterial 7.50(H) 7.35 - 7.45 [facility] PCO2, Arterial 32(L) 35 - [address] [facility] PO2, Arterial 60(L) 85 - [address] [facility] Bicarbonate, Arterial 23.7 20.0 - 26.0 mmol/L [facility] Base Excess, Arterial 0.5 -3.0 - 3.0 mmol/L [facility] Hgb Blood Gas 14.8 13.7 - 16.5 gm/dL [facility] Oxyhemoglobin, Arterial 91.1(L) 94.0 - 97.0 % [facility] Carboxyhemoglob in, Arterial 0.1 % [facility] Comment: Nonsmokers: 0.5-1.5% COHB Smokers: Variable, but usually less than 10% Toxic: 20-30% COHB Lethal: Greater than 60% COHB Methemoglobin, Arterial 0.6 <=1.5 % [facility] Na Whole Blood 145 135 [facility] FIO2 Art 45 % [facility] PF Ratio Art 133 [facility] Blood specimen (specimen) 07/19/2017 12:17 PM EDT 07/19/2017 12:17 PM EDT Sriram Contreras MD POINT OF CARE TEST ORDERABLES Performing Organization Address [facility] Co de Phone Number [facility] [place] [address] * Potassium (07/19/2017 8:50 AM EDT) Potassium [...] MD CHEMISTRY ORDERABL ES Performing Organization Address City/[facility]/ZIP Co de Phone Number [facility] [place] [address] * Folate, serum (07/19/2017 8:50 AM EDT) Folate 16.6 4.8 - 24.2 ng/mL [facility] Blood specimen (specimen) 07/19/2017 8:50 AM EDT 07/19/2017 9:11 AM EDT Narrative Resulting Agency Comment Spec In Lab Sriram Contreras MD CHEMISTRY ORDERABL ES Performing Organization Address [facility] Co de Phone Number [facility] [place] [address] * Vitamin B12 (07/19/2017 8:50 AM EDT) Vitamin B12 468 207 - 974 pg/mL [facility] Blood specimen (specimen) 07/19/2017 8:50 AM EDT 07/19/2017 9:11 AM EDT Narrative Resulting Agency Comment Spec In Lab Sriram Contreras MD CHEMISTRY ORDERABL ES Performing Organization Address [facility] Co de Phone Number [facility] [place] [address] * (ABNORMAL) TSH (07/19/2017 8:50 AM EDT) Thyroid Stimulating Hormone 6.80(H) 0.27 - 4.20 mlU/ML [facility] Blood specimen (specimen) 07/19/2017 8:50 AM EDT 07/19/2017 9:11 AM EDT Narrative Resulting Agency Comment Spec In Lab Sriram Contreras MD CHEMISTRY ORDERABL ES Performing Organization Address [facility]/ZIP Co de Phone Number [facility] [place] [address] * Urine Hold (07/19/2017 8:07 AM EDT) Hold, Urine Sample in lab. [facility] Urine specimen (specimen) Urine / Unknown 07/19/2017 8:07 AM EDT 07/19/2017 8:35 AM EDT Sriram Contreras MD URINE ORDERABLES [facility] [place] [address] * (ABNORMAL) Urinalysis with reflex Culture (07/19/2017 8:07 AM EDT) Glucose, Urine Dipstick Negative Negative mg/dL [facility] Protein, Urine Dipstick 30(A) Negative mg/dL [facility] Bilirubin, Urine Dipstick Negative Negative mg/dL [facility] Comment: Clinical correlation required for positive Urine Bilirubin results as false positive may occur with some drugs and drug related products. If a false positive is suspected a serum total bilirubin should be considered if clinically indicated. Urobilinogen, Urine Dipstick >=4.0(A) Normal mg/dL [facility] pH, Urn (dipstick) 7.0 5.0 - 8.0 [facility] Blood, Urine Dipstick Moderate(A) Negative mg/dL [facility] Ketone, Urine Dipstick Negative Negative mg/dL [facility] Nitrite, Urine Dipstick Negative Negative [facility] Leukocytes, Urine Dipstick Trace(A) Negative [facility] Appearance, Urine Dipstick Clear Clear [facility] Specific [place] Urine Automated 1.025 1.002 - 1.030 [facility] Color, Urine Dipstick Yellow Yellow [facility] RBC, Urine 161(H) 0 - 3 /HPF [facility] WBC, Urine 1 0 - 3 /HPF [facility] Reflex to Culture No [facility] Urine specimen obtained via indwelling urinary catheter (specimen) 07/19/2017 8:07 AM EDT 07/19/2017 8:34 AM EDT Narrative Resulting Agency Comment Spec In Lab Sriram Contreras MD URINE ORDERABLES Performing Organization Address [facility] Co de Phone Number [facility] [place] [address] * POCT Glucose (07/19/2017 7:42 AM EDT) Glucose, POC 99 65 - 199 mg/dL [facility] Comment: Supplemental ranges: <140 mg/dL before meals <180 mg/dL all other times of the day Blood specimen (specimen) 07/19/2017 7:42 AM EDT 07/19/2017 7:42 AM EDT Sriram Contreras MD POINT OF CARE TEST ORDERABLES Performing Organization Address [facility] Co de Phone Number [facility] [place] [address] * POCT Glucose (07/19/2017 4:11 AM EDT) Glucose, POC 93 65 - 199 mg/dL [facility] Comment: Supplemental ranges: <140 mg/dL before meals <180 mg/dL all other times of the day Blood specimen (specimen) 07/19/2017 4:11 AM EDT 07/19/2017 4:11 AM EDT Sriram Contreras MD POINT OF CARE TEST ORDERABLES Performing Organization Address [facility] Co de Phone Number [facility] [place] [address] * (ABNORMAL) Differential, Automated (07/19/2017 2:30 AM EDT) Neutrophil % 77.9 % [facility] Neutrophil Absolute 9.99(H) 1.70 - 6.10 x10(3)/mc L [facility] Lymph % 9.8 % [facility] Lymphocytes Abs 1.2 0.9 - 3.2 x10(3)/ L [facility] Monocyte % 11.5 % [facility] Monocyte Abs 1.5(H) 0.3 - 0.9 x10(3)/[facility] Eos % 0.1 % [facility] Eosinophils Abs 0.0 0.0 - 0.4 x10(3)/[facility] Basophil % 0.2 % [facility] Baso Absolute 0.0 0.0 - 0.1 x10(3)/[facility] Immature Gran % 0.50 % [facility] Comment: Immature granulocytes(IG's)percentage and absolute count will include metamyelocytes, myelocytes, and promyelocytes. Blood smears from CBCs yielding IG's will be scanned manually for concordance. If this scan disagrees with the automated IG or if promyelocytes are noted, a manual differential will be performed. Immature Gran Absolute 0.07(H) 0.00 - 0.04 x10(3)/[facility] Blood specimen (specimen) 07/19/2017 2:30 AM EDT 07/19/2017 2:34 AM EDT Narrative Resulting Agency Comment Spec In Lab Sriram Contreras MD HEMATOLOGY ORDERAB LES Performing Organization Address City/State/[facility] Co de Phone Number [facility] [place] [address] * (ABNORMAL) Hemogram (07/19/2017 2:30 AM EDT) White Blood Cell 12.8(H) 4.0 - 9.5 x10(3)/[facility] Red Blood Cell 4.30(L) 4.58 - 5.54 x10(6)/[facility] Hemoglobin 13.5(L) 13.7 - 16.5 gm/dL [facility] Hematocrit 38.6(L) 40.5 - 48.5 % [facility] Mean Cell Volume 89.8 82.9 - 93.[address] [facility] Mean Cell Hemoglobin 31.4 27.5 - 32.[address] [facility] Mean Cell Hemoglobin Concentration 35.0 32.0 - 35.7 gm/dL [facility] Platelet 176 145 - 357 x10(3)/mc L [facility] RDW Standard Deviation 45.1(H) 36.0 - 45.[address] [facility] RDW coefficient of variation 13.9(H) 11.4 - 13.8 % [facility] Mean Platelet Volume 9.8 7.6 - 12.[address] [facility] NRBC% auto 0.0 % [facility] NRBC Absolute 0.000 0.000 - 0.000 x10(3)/mc L [facility] Blood specimen (specimen) 07/19/2017 2:30 AM EDT 07/19/2017 2:34 AM EDT Narrative Resulting Agency Comment Spec In Lab Sriram Contreras MD HEMATOLOGY ORDERAB LES Performing Organization Address City/State/[facility] Co de Phone Number [facility] [place] [address] * (ABNORMAL) Basic Metabolic Panel (non-fasting) (07/19/2017 2:30 AM EDT) Glucose 102 65 - 199 mg/dL [facility] Comment:Diabetes: >=200 mg/d L plus symptoms Blood Urea Nitrogen 23(H) 10 - 20 mg/dL [facility] Creatinine 0.87 0.80 - 1.50 mg/dL [facility] Comment: Please note that the pediatric reference intervals supplied above were not validated at [facility]. Results from pediatric patients should be interpreted [...] - 107 mmol/L [facility] Carbon Dioxide 23 22 - 31 mmol/L [facility] Anion Gap 15 5 - 15 mmol/L [facility] Calcium 8.5 8.5 - 10.5 mg/dL [facility] Est Glomerular Filtration Rate >60 >=60 [facility] Comment: This estimated GFR (eGFR) value [...] the following links into your internet browser. [email or web address] Blood specimen (specimen) 07/19/2017 2:30 AM EDT 07/19/2017 2:34 AM EDT Narrative Resulting Agency Comment Spec In Lab Sriram Contreras MD CHEMISTRY ORDERABL ES [facility] [place] [address] * (ABNORMAL) Prealbumin (07/19/2017 2:30 AM EDT) Prealbumin 17(L) 20 - 40 mg/dL [facility] Comment: Prealbumin levels are generally lower in the pediatric population; adult concentrations are usually attained near puberty. Blood specimen (specimen) 07/19/2017 2:30 AM EDT 07/19/2017 2:34 AM EDT Narrative Resulting Agency Comment Spec In Lab Sriram Contreras MD CHEMISTRY ORDERABL ES [facility] [place] [address] * (ABNORMAL) BLOOD GAS 2 ARTERIAL (07/18/2017 11:53 PM EDT) pH, Arterial 7.50(H) 7.35 - 7.45 [facility] PCO2, Arterial 32(L) 35 - [address] [facility] PO2, Arterial 61(L) 85 - [address] [facility] Bicarbonate, Arterial 24.5 20.0 - 26.0 mmol/L [facility] Base Excess, Arterial 1.3 -3.0 - 3.0 mmol/L [facility] Hgb Blood Gas 14.1 13.7 - 16.5 gm/dL [facility] Oxyhemoglobin, Arterial 90.9(L) 94.0 - 97.0 % [facility] Carboxyhemoglob in, Arterial 0.3 % [facility] Comment: Nonsmokers: 0.5-1.5% COHB Smokers: Variable, but usually less than 10% Toxic: 20-30% COHB Lethal: Greater than 60% COHB Methemoglobin, Arterial 0.7 <=1.5 % [facility] Na Whole Blood 144 135 [facility] FIO2 Art 45 % [facility] PF Ratio Art 136 [facility] Blood specimen (specimen) 07/18/2017 11:53 PM EDT 07/18/2017 11:53 PM EDT Sriram Contreras MD POINT OF CARE TEST ORDERABLES [facility] [place] [address] * POCT Glucose (07/18/2017 11:49 PM EDT) Glucose, POC 102 65 - 199 mg/dL [facility] Comment: Supplemental ranges: <140 mg/dL before meals <180 mg/dL all other times of the day Blood specimen (specimen) 07/18/2017 11:49 PM EDT 07/18/2017 11:49 PM EDT Sriram Contreras MD POINT OF CARE TEST ORDERABLES Performing Organization Address City/[facility]/ZIP Co de Phone Number [facility] [place] [address] * POCT Glucose (07/18/2017 8:44 PM EDT) Glucose, POC 108 65 - 199 mg/dL [facility] Comment: Supplemental ranges: <140 mg/dL before meals <180 mg/dL all other times of the day Blood specimen (specimen) 07/18/2017 8:44 PM EDT 07/18/2017 8:44 PM EDT Sriram Contreras MD POINT OF CARE TEST ORDERABLES Performing Organization Address City/[facility]/ZIP Co de Phone Number [facility] [place] [address] * (ABNORMAL) BLOOD GAS 2 ARTERIAL (07/18/2017 5:22 PM EDT) pH, Arterial 7.54(H) 7.35 - 7.45 [facility] PCO2, Arterial 31(L) 35 - [address] [facility] PO2, Arterial 55(L) 85 - [address] [facility] Bicarbonate, Arterial 25.9 20.0 - 26.0 mmol/L [facility] Base Excess, Arterial 3.3(H) -3.0 - 3.0 mmol/L [facility] Hgb Blood Gas 14.2 13.7 - 16.5 gm/dL [facility] Oxyhemoglobin, Arterial 90.3(L) 94.0 - 97.0 % [facility] Carboxyhemoglob in, Arterial 0.3 % [facility] Comment: Nonsmokers: 0.5-1.5% COHB Smokers: Variable, but usually less than 10% Toxic: 20-30% COHB Lethal: Greater than 60% COHB Methemoglobin, Arterial 0.5 <=1.5 % [facility] Na Whole Blood 144 135 [facility] FIO2 Art 40 % [facility] PF Ratio Art 138 [facility] Blood specimen (specimen) 07/18/2017 5:22 PM EDT 07/18/2017 5:22 PM EDT Sriram Contreras MD POINT OF CARE TEST ORDERABLES Performing Organization Address City/[facility]/ZIP Co de Phone Number [facility] [place] [address] * POCT Glucose (07/18/2017 3:42 PM EDT) Glucose, POC 119 65 - 199 mg/dL [facility] Comment: Supplemental ranges: <140 mg/dL before meals <180 mg/dL all other times of the day Blood specimen (specimen) 07/18/2017 3:42 PM EDT 07/18/2017 3:42 PM EDT Sriram Contrersa MD POINT OF CARE TEST ORDERABLES Performing Organization Address City/[facility] Co de Phone Number [facility] [place] [address] * POCT Glucose (07/18/2017 1:05 PM EDT) Glucose, POC 118 65 - 199 mg/dL [facility] Comment: Supplemental ranges: <140 mg/dL before meals <180 mg/dL all other times of the day Blood specimen (specimen) 07/18/2017 1:05 PM EDT 07/18/2017 1:05 PM EDT Sriram Contreras MD POINT OF CARE TEST ORDERABLES Performing Organization Address City/[facility] Co de Phone Number [facility] [place] [address] * (ABNORMAL) BLOOD GAS 2 ARTERIAL (07/18/2017 11:47 AM EDT) pH, Arterial 7.51(H) 7.35 - 7.45 [facility] PCO2, Arterial 33(L) 35 - [address] [facility] PO2, Arterial 94 85 - [address] [facility] Bicarbonate, Arterial 25.1 20.0 - 26.0 mmol/L [facility] Base Excess, Arterial 2.0 -3.0 - 3.0 mmol/L [facility] Hgb Blood Gas 14.4 13.7 - 16.5 gm/dL [facility] Oxyhemoglobin, Arterial 96.1 94.0 - 97.0 % [facility] Carboxyhemoglob in, Arterial 0.3 % [facility] Comment: Nonsmokers: 0.5-1.5% COHB Smokers: Variable, but usually less than 10% Toxic: 20-30% COHB Lethal: Greater than 60% COHB Methemoglobin, Arterial 0.6 <=1.5 % [facility] Na Whole Blood 141 135 [facility] FIO2 Art 50 % [facility] PF Ratio Art 188 [facility] Blood specimen (specimen) 07/18/2017 11:47 AM EDT 07/18/2017 11:47 AM EDT Sriram Contreras MD POINT OF CARE TEST ORDERABLES [facility] [place] [address] * (ABNORMAL) BLOOD GAS 2 ARTERIAL (07/18/2017 7:56 AM EDT) pH, Arterial 7.50(H) 7.35 - 7.45 [facility] PCO2, Arterial 31(L) 35 - [address] [facility] PO2, Arterial 82(L) 85 - [address] [facility] Bicarbonate, Arterial 24.2 20.0 - 26.0 mmol/L [facility] Base Excess, Arterial 1.0 -3.0 - 3.0 mmol/L [facility] Hgb Blood Gas 13.4(L) 13.7 - 16.5 gm/dL [facility] Oxyhemoglobin, Arterial 95.3 94.0 - 97.0 % [facility] Carboxyhemoglob in, Arterial 0.3 % [facility] Comment: Nonsmokers: 0.5-1.5% COHB Smokers: Variable, but usually less than 10% Toxic: 20-30% COHB Lethal: Greater than 60% COHB Methemoglobin, Arterial 0.5 <=1.5 % [facility] Na Whole Blood 143 135 [facility] FIO2 Art 60 % [facility] PF Ratio Art 137 [facility] Blood specimen (specimen) 07/18/2017 7:56 AM EDT 07/18/2017 7:56 AM EDT Sriram Contreras MD POINT OF CARE TEST ORDERABLES [facility] [place] [address] * (ABNORMAL) BLOOD GAS 2 ARTERIAL (07/18/2017 3:55 AM EDT) pH, Arterial 7.51(H) 7.35 - 7.45 [facility] PCO2, Arterial 34(L) 35 - [address] [facility] PO2, Arterial 95 85 - [address] [facility] Bicarbonate, Arterial 26.4(H) 20.0 - 26.0 mmol/L [facility] Base Excess, Arterial 3.4(H) -3.0 - 3.0 mmol/L [facility] Hgb Blood Gas 14.2 13.7 - 16.5 gm/dL [facility] Oxyhemoglobin, Arterial 96.4 94.0 - 97.0 % [facility] Carboxyhemoglob in, Arterial 0.5 % [facility] Comment: Nonsmokers: 0.5-1.5% COHB Smokers: Variable, but usually less than 10% Toxic: 20-30% COHB Lethal: Greater than 60% COHB Methemoglobin, Arterial 0.6 <=1.5 % [facility] Na Whole Blood 142 135 [facility] FIO2 Art 70 % [facility] PF Ratio Art 136 [facility] Blood specimen (specimen) 07/18/2017 3:55 AM EDT 07/18/2017 3:55 AM EDT Sriram Contreras MD POINT OF CARE TEST ORDERABLES Performing Organization Address [facility] Co de Phone Number [facility] [place] [address] * (ABNORMAL) POCT Glucose (07/18/2017 3:42 AM EDT) Pathologist [facility] Glucose, POC 205(H) 65 - 199 mg/dL [facility] Comment: Supplemental ranges: <140 mg/dL before meals <180 mg/dL all other times of the day Blood specimen (specimen) 07/18/2017 3:42 AM EDT 07/18/2017 3:42 AM EDT Sriram Contreras MD POINT OF CARE TEST ORDERABLES Performing Organization Address [facility] de Phone Number [facility] [place] [address] * (ABNORMAL) Magnesium (07/18/2017 2:20 AM EDT) [facility] Magnesium 1.09(H) 0.69 - 1.07 mmol/L [facility] Blood specimen (specimen) Venous Draw / Unknown 07/18/2017 2:20 AM EDT 07/18/2017 2:31 AM EDT Narrative Resulting Agency Comment Spec In Lab Sriram Contreras MD CHEMISTRY ORDERABL ES Performing Organization Address [facility] Co de Phone Number [facility] [place] [address] * (ABNORMAL) Differential, Automated (07/18/2017 2:20 AM EDT) [facility] Neutrophil % 86.8 % [facility] Neutrophil Absolute 9.28(H) 1.70 - 6.10 x10(3)/ L [facility] Lymph % 5.8 % [facility] Lymphocytes Abs 0.6(L) 0.9 - 3.2 x10(3)/ L [facility] Monocyte % 6.5 % [facility] Monocyte Abs 0.7 0.3 - 0.9 x10(3)/ L [facility] Eos % 0.0 % [facility] Eosinophils Abs 0.0 0.0 - 0.4 x10(3)/[facility] Basophil % 0.2 % [facility] Baso Absolute 0.0 0.0 - 0.1 x10(3)/[facility] Immature Gran % 0.70 % [facility] Comment: Immature granulocytes(IG's)percentage and absolute count will include metamyelocytes, myelocytes, and promyelocytes. Blood smears from CBCs yielding IG's will be scanned manually for concordance. If this scan disagrees with the automated IG or if promyelocytes are noted, a manual differential will be performed. Immature Gran Absolute 0.08(H) 0.00 - 0.04 x10(3)/ L [facility] Blood specimen (specimen) 07/18/2017 2:20 AM EDT 07/18/2017 2:28 AM EDT Narrative Resulting Agency Comment Spec In Lab Sriram Contreras MD HEMATOLOGY ORDERAB LES [facility] [place] [address] * (ABNORMAL) Hemogram (07/18/2017 2:20 AM EDT) White Blood Cell 10.7(H) 4.0 - 9.5 x10(3)/ L [facility] Red Blood Cell 4.39(L) 4.58 - 5.54 x10(6)/mc L [facility] Hemoglobin 13.6(L) 13.7 - 16.5 gm/dL [facility] Hematocrit 38.8(L) 40.5 - 48.5 % [facility] Mean Cell Volume 88.4 82.9 - 93.[address] [facility] Mean Cell Hemoglobin 31.0 27.5 - 32.[address] [facility] Mean Cell Hemoglobin Concentration 35.1 32.0 - 35.7 gm/dL [facility] Platelet 147 145 - 357 x10(3)/mc L [facility] RDW Standard Deviation 43.4 36.0 - 45.0 [facility] RDW coefficient of variation 13.3 11.4 - 13.8 % [facility] Mean Platelet Volume 10.9 7.6 - 12.9 [facility] NRBC% auto 0.0 % [facility] NRBC Absolute 0.000 0.000 - 0.000 x10(3)/mc L [facility] Blood specimen (specimen) 07/18/2017 2:20 AM EDT 07/18/2017 2:28 AM EDT Narrative Resulting Agency Comment Spec In Lab Sriram Contreras MD HEMATOLOGY ORDERAB LES Performing Organization Address City/State/[facility] Co de Phone Number [facility] [place] [address] * (ABNORMAL) Basic Metabolic Panel (non-fasting) (07/18/2017 2:20 AM EDT) Glucose 181 65 - 199 mg/dL [facility] Comment:Diabetes: >=200 mg/d L plus symptoms Blood Urea Nitrogen 22(H) 10 - 20 mg/dL [facility] Creatinine 0.74(L) 0.80 - 1.50 mg/dL [facility] Comment: Please note that the pediatric reference intervals supplied above were not validated at [facility]. Results from pediatric patients should be interpreted [...] - 107 mmol/L [facility] Carbon Dioxide 25 22 - 31 mmol/L [facility] Anion Gap 15 5 - 15 mmol/L [facility] Calcium 8.8 8.5 - 10.5 mg/dL [facility] Est Glomerular Filtration Rate >60 >=60 [facility] Comment: This estimated GFR (eGFR) value [...] the following links into your internet browser. [email or web address] Blood specimen (specimen) 07/18/2017 2:20 AM EDT 07/18/2017 2:28 AM EDT Narrative Resulting Agency Comment Spec In Lab Sriram Contreras MD CHEMISTRY ORDERABL ES [facility] [address], [place] [address] * (ABNORMAL) BLOOD GAS 2 ARTERIAL (07/17/2017 11:36 PM EDT) pH, Arterial 7.51(H) 7.35 - 7.45 [facility] PCO2, Arterial 32(L) 35 - [address] [facility] PO2, Arterial 60(L) 85 - [address] [facility] Bicarbonate, Arterial 25.0 20.0 - 26.0 mmol/L [facility] Base Excess, Arterial 2.0 -3.0 - 3.0 mmol/L [facility] Hgb Blood Gas 14.8 13.7 - 16.5 gm/dL [facility] Oxyhemoglobin, Arterial 92.1(L) 94.0 - 97.0 % [facility] Carboxyhemoglob in, Arterial 0.3 % [facility] Comment: Nonsmokers: 0.5-1.5% COHB Smokers: Variable, but usually less than 10% Toxic: 20-30% COHB Lethal: Greater than 60% COHB Methemoglobin, Arterial 0.5 <=1.5 % [facility] Na Whole Blood 143 135 [facility] FIO2 Art 60 % [facility] PF Ratio Art 100 [facility] Blood specimen (specimen) 07/17/2017 11:36 PM EDT 07/17/2017 11:36 PM EDT Sriram Contreras MD POINT OF CARE TEST ORDERABLES [facility] [place] [address] * (ABNORMAL) POCT Glucose (07/17/2017 11:34 PM EDT) [facility] Glucose, POC 202(H) 65 - 199 mg/dL [facility] Comment: Supplemental ranges: <140 mg/dL before meals <180 mg/dL all other times of the day Blood specimen (specimen) 07/17/2017 11:34 PM EDT 07/17/2017 11:34 PM EDT Sriram Contreras MD POINT OF CARE TEST ORDERABLES [facility] [place] [address] * Magnesium (07/17/2017 10:10 PM EDT) [facility] Magnesium 0.87 0.69 - 1.07 mmol/L [facility] Blood specimen (specimen) 07/17/2017 10:10 PM EDT 07/17/2017 10:18 PM EDT Narrative Resulting Agency Comment Spec In Lab Sriram Contreras MD CHEMISTRY ORDERABL ES [facility] [place] [address] * (ABNORMAL) BLOOD GAS 2 ARTERIAL (07/17/2017 7:51 PM EDT) [facility] pH, Arterial 7.49(H) 7.35 - 7.45 [facility] PCO2, Arterial 36 35 - [address] [facility] PO2, Arterial 67(L) 85 - [address] [facility] Bicarbonate, Arterial 26.8(H) 20.0 - 26.0 mmol/L [facility] Base Excess, Arterial 3.4(H) -3.0 - 3.0 mmol/L [facility] Hgb Blood Gas 14.3 13.7 - 16.5 gm/dL [facility] Oxyhemoglobin, Arterial 93.4(L) 94.0 - 97.0 % [facility] Carboxyhemoglob in, Arterial 0.3 % [facility] Comment: Nonsmokers: 0.5-1.5% COHB Smokers: Variable, but usually less than 10% Toxic: 20-30% COHB Lethal: Greater than 60% COHB Methemoglobin, Arterial 0.6 <=1.5 % [facility] Na Whole Blood 143 135 [facility] FIO2 Art 60 % [facility] PF Ratio Art 112 [facility] Blood specimen (specimen) 07/17/2017 7:51 PM EDT 07/17/2017 7:51 PM EDT Sriram Contreras MD POINT OF CARE TEST ORDERABLES [facility] [place] [address] * POCT Glucose (07/17/2017 7:50 PM EDT) Glucose, POC 153 65 - 199 mg/dL [facility] Comment: Supplemental ranges: <140 mg/dL before meals <180 mg/dL all other times of the day Blood specimen (specimen) 07/17/2017 7:50 PM EDT 07/17/2017 7:50 PM EDT Sriram Contreras MD POINT OF CARE TEST ORDERABLES [facility] [place] [address] * (ABNORMAL) BLOOD GAS 2 ARTERIAL (07/17/2017 3:20 PM EDT) pH, Arterial 7.51(H) 7.35 - 7.45 [facility] PCO2, Arterial 31(L) 35 - [address] [facility] PO2, Arterial 67(L) 85 - [address] [facility] Bicarbonate, Arterial 24.3 20.0 - 26.0 mmol/L [facility] Base Excess, Arterial 1.3 -3.0 - 3.0 mmol/L [facility] Hgb Blood Gas 14.1 13.7 - 16.5 gm/dL [facility] Oxyhemoglobin, Arterial 93.8(L) 94.0 - 97.0 % [facility] Carboxyhemoglob in, Arterial 0.3 % [facility] Comment: Nonsmokers: 0.5-1.5% COHB Smokers: Variable, but usually less than 10% Toxic: 20-30% COHB Lethal: Greater than 60% COHB Methemoglobin, Arterial 0.5 <=1.5 % [facility] Na Whole Blood 141 135 [...] [facility] FIO2 Art 50 % [facility] PF Ratio Art 134 [facility] Blood specimen (specimen) 07/17/2017 3:20 PM EDT 07/17/2017 3:20 PM EDT Sriram Contreras MD POINT OF CARE TEST ORDERABLES [facility] [place] [address] * (ABNORMAL) BLOOD GAS 2 ARTERIAL (07/17/2017 12:50 PM EDT) pH, Arterial 7.51(H) 7.35 - 7.45 [facility] PCO2, Arterial 30(L) 35 - [address] [facility] PO2, Arterial 52(L) 85 - [address] [facility] Bicarbonate, Arterial 23.7 20.0 - 26.0 mmol/L [facility] Base Excess, Arterial 0.8 -3.0 - 3.0 mmol/L [facility] Hgb Blood Gas 14.0 13.7 - 16.5 gm/dL [facility] Oxyhemoglobin, Arterial 89.4(L) 94.0 - 97.0 % [facility] Carboxyhemoglob in, Arterial 0.3 % [facility] Comment: Nonsmokers: 0.5-1.5% COHB Smokers: Variable, but usually less than 10% Toxic: 20-30% COHB Lethal: Greater than 60% COHB Methemoglobin, Arterial 0.5 <=1.5 % [facility] Na Whole Blood 140 135 [...] [facility] FIO2 Art 50 % [facility] PF Ratio Art 104 [facility] Blood specimen (specimen) 07/17/2017 12:50 PM EDT 07/17/2017 12:50 PM EDT Sriram Contreras MD POINT OF CARE TEST ORDERABLES Performing Organization Address City/State/[facility] Co de Phone Number [facility] [place] [address] * XR Chest PA or AP 1 [...] GAS 2 ARTERIAL (07/17/2017 11:54 AM EDT) pH, Arterial 7.48(H) 7.35 - 7.45 [facility] PCO2, Arterial 34(L) 35 - [address] [facility] PO2, Arterial 55(L) 85 - [address] [facility] Bicarbonate, Arterial 24.7 20.0 - 26.0 mmol/L [facility] Base Excess, Arterial 1.2 -3.0 - 3.0 mmol/L [facility] Hgb Blood Gas 14.1 13.7 - 16.5 gm/dL [facility] Oxyhemoglobin, Arterial 90.4(L) 94.0 - 97.0 % [facility] Carboxyhemoglob in, Arterial 0.1 % [facility] Comment: Nonsmokers: 0.5-1.5% COHB Smokers: Variable, but usually less than 10% Toxic: 20-30% COHB Lethal: Greater than 60% COHB Methemoglobin, Arterial 0.7 <=1.5 % [facility] Na Whole Blood 141 135 [facility] FIO2 Art 40 % [facility] PF Ratio Art 138 [facility] Blood specimen (specimen) 07/17/2017 11:54 AM EDT 07/17/2017 11:54 AM EDT Sriram Contreras MD POINT OF CARE TEST ORDERABLES Performing Organization Address City/State/[facility] Co de Phone Number [facility] [place] [address] * Cardiac Enzymes (07/17/2017 5:42 AM EDT) [...] meets the diagnosis for a myocardial infarction (AR). Detection of a rise and/or fall of cTnT, with at least one value greater than the 99th percentile (> or = 0.01) and with at least one of the following ?? Symptoms of ischemia ?? New or presumed new significant HC-oibgwet-B wave (ST-T) changes or new left bundle [...] additional sample may be indicated. Reference: Third [place] Definition of Myocardial Infarction. Journal of the [employer] 2012;60:1581-98 Creatine Kinase 47 0 - 200 unit/L [facility] Blood specimen (specimen) 07/17/2017 5:42 AM EDT 07/17/2017 5:42 AM EDT Narrative Resulting Agency Comment Spec In Lab Sriram Contreras MD CHEMISTRY ORDERABL ES [facility] [place] [address] * (ABNORMAL) Differential, Automated (07/17/2017 12:30 AM EDT) Neutrophil % 90.5 % [facility] Neutrophil Absolute 8.62(H) 1.70 - 6.10 x10(3)/mc L [facility] Lymph % 3.7 % [facility] Lymphocytes Abs 0.4(L) 0.9 - 3.2 x10(3)/mc L [facility] Monocyte % 4.9 % [facility] Monocyte Abs 0.5 0.3 - 0.9 x10(3)/mc L [facility] Eos % 0.0 % [facility] Eosinophils Abs 0.0 0.0 - 0.4 x10(3)/mc L [facility] Basophil % 0.1 % [facility] Baso Absolute 0.0 0.0 - 0.1 x10(3)/ L [facility] Immature Gran % 0.80 % [facility] Comment: Immature granulocytes(IG's)percentage and absolute count will include metamyelocytes, myelocytes, and promyelocytes. Blood smears from CBCs yielding IG's will be scanned manually for concordance. If this scan disagrees with the automated IG or if promyelocytes are noted, a manual differential will be performed. Immature Gran Absolute 0.08(H) 0.00 - 0.04 x10(3)/ L [facility] Blood specimen (specimen) 07/17/2017 12:30 AM EDT 07/17/2017 1:13 AM EDT Narrative Resulting Agency Comment Spec In Lab Sriram Contreras MD HEMATOLOGY ORDERAB LES Performing Organization Address City/State/[facility] Co de Phone Number [facility] [place] [address] * (ABNORMAL) Hemogram (07/17/2017 12:30 AM EDT) White Blood Cell 9.5 4.0 - 9.5 x10(3)/ L [facility] Red Blood Cell 3.98(L) 4.58 - 5.54 x10(6)/ L [facility] Hemoglobin 12.4(L) 13.7 - 16.5 gm/dL [facility] Hematocrit 36.7(L) 40.5 - 48.5 % [facility] Mean Cell Volume 92.2 82.9 - 93.[address] [facility] Mean Cell Hemoglobin 31.2 27.5 - 32.[address] [facility] Mean Cell Hemoglobin Concentration 33.8 32.0 - 35.7 gm/dL [facility] Platelet 133(L) 145 - 357 x10(3)/ L [facility] RDW Standard Deviation 47.7(H) 36.0 - 45.[address] [facility] RDW coefficient of variation 13.8 11.4 - 13.8 % [facility] Mean Platelet Volume 10.9 7.6 - 12.[address] [facility] NRBC% auto 0.0 % [facility] NRBC Absolute 0.000 0.000 - 0.000 x10(3)/mc L [facility] Blood specimen (specimen) 07/17/2017 12:30 AM EDT 07/17/2017 1:13 AM EDT Narrative Resulting Agency Comment Spec In Lab Sriram Contreras MD HEMATOLOGY ORDERAB LES [facility] [place] [address] * (ABNORMAL) Basic Metabolic Panel (non-fasting) (07/17/2017 12:30 AM EDT) Glucose 246(H) 65 - 199 mg/dL [facility] Comment:Diabetes: >=200 mg/d L plus symptoms Blood Urea Nitrogen 17 10 - 20 mg/dL [facility] Creatinine 0.73(L) 0.80 - 1.50 mg/dL [facility] Comment: Please note that the pediatric reference intervals supplied above were not validated at [facility]. Results from pediatric patients should be interpreted [...] - 107 mmol/L [facility] Carbon Dioxide 21(L) 22 - 31 mmol/L [facility] Anion Gap 13 5 - 15 mmol/L [facility] Calcium 8.3(L) 8.5 - 10.5 mg/dL [facility] Est Glomerular Filtration Rate >60 >=60 [facility] Comment: This estimated GFR (eGFR) value [...] the following links into your internet browser. [email or web address] Blood specimen (specimen) 07/17/2017 12:30 AM EDT 07/17/2017 1:13 AM EDT Narrative Resulting Agency Comment Spec In Lab Sriram Contreras MD CHEMISTRY ORDERABL ES Performing Organization Address City/State/[facility] Co de Phone Number [facility] [place] [address] * Cardiac Enzymes (07/17/2017 12:30 AM EDT) [...] meets the diagnosis for a myocardial infarction (AR). Detection of a rise and/or fall of cTnT, with at least one value greater than the 99th percentile (> or = 0.01) and with at least one of the following ?? Symptoms of ischemia ?? New or presumed new significant US-vqzetci-Y wave (ST-T) changes or new left bundle [...] additional sample may be indicated. Reference: Third [place] Definition of Myocardial Infarction. Journal of the [employer] 2012;60:1581-98 Creatine Kinase 60 0 - 200 unit/L [facility] Blood specimen (specimen) 07/17/2017 12:30 AM EDT 07/17/2017 1:13 AM EDT Narrative Resulting Agency Comment Spec In Lab Sriram Contreras MD CHEMISTRY ORDERABL ES [facility] [place] [address] * XR Chest PA or AP 1 [...] * Cardiac Enzymes (07/16/2017 5:10 PM EDT) Pathologist [facility] Troponin-T <0.01 0.00 - 0.00 ng/mL [facility] Comment: The 99th percentile for Troponin T is less than 0.01 ng/mL, any detectable cTnT concentration using this assay should be considered elevated. According to the third universal definition of myocardial infarction the following criteria with a clinical presentation consistent with acute myocardial ischemia meets the diagnosis for a myocardial infarction (AR). Detection of a rise and/or fall of cTnT, with at least one value greater than the 99th percentile (> or = 0.01) and with at least one of the following ?? Symptoms of ischemia ?? New or presumed new significant RB-dmpgirz-I wave (ST-T) changes or new left bundle [...] additional sample may be indicated. Reference: Third [place] Definition of Myocardial Infarction. Journal of the [employer] 2012;60:1581-98 Creatine Kinase 63 0 - 200 unit/L [facility] Blood specimen (specimen) 07/16/2017 5:10 PM EDT 07/16/2017 5:20 PM EDT Narrative Resulting Agency Comment Spec In Lab Sriram Contreras MD CHEMISTRY ORDERABL ES [facility] [place] [address] * EKG 12 Lead (07/16/2017 4:46 PM EDT) Ventricular rate 70 BPM MUSE SYSTEM Atrial Rate 70 BPM MUSE SYSTEM P-R Interval 208 ms MUSE SYSTEM QRS Duration 96 ms MUSE SYSTEM Q-T Interval 404 ms MUSE SYSTEM QTC Calculated (Bezet) 436 ms MUSE SYSTEM Calculated P [place] 57 degrees MUSE SYSTEM Calculated R [place] 54 degrees MUSE SYSTEM Calculated T [place] 50 degrees MUSE SYSTEM INTERPRETATION Sinus rhythm with frequent Premature ventricular complexes in a pattern of bigeminy Otherwise normal ECG Confirmed by MD Bello Douglas ([id number]) on 07/17/2017 2:06:02 PM MUSE SYSTEM 07/16/2017 4:46 PM EDT 07/17/2017 2:06 PM EDT Sriram Contreras MD ECG ORDERABLES Performing Organization Address City/[facility]/ZIP Co de Phone Number MUSE SYSTEM * Magnesium (07/16/2017 4:00 AM EDT) [facility] Magnesium 0.82 0.69 - 1.07 mmol/L [facility] Blood specimen (specimen) Venous Draw / Unknown 07/16/2017 4:00 AM EDT 07/16/2017 4:18 AM EDT Narrative Resulting Agency Comment Spec In Lab Sriram Contreras MD CHEMISTRY ORDERABL ES Performing Organization Address City/[facility]/ZIP Co de Phone Number [facility] [place] [address] * (ABNORMAL) Differential, Automated (07/16/2017 4:00 AM EDT) [facility] Neutrophil % 81.3 % [facility] Neutrophil Absolute 8.31(H) 1.70 - 6.10 x10(3)/mc L [facility] Lymph % 10.7 % [facility] Lymphocytes Abs 1.1 0.9 - 3.2 x10(3)/mc L [facility] Monocyte % 6.8 % [facility] Monocyte Abs 0.7 0.3 - 0.9 x10(3)/mc L [facility] Eos % 0.3 % [facility] Eosinophils Abs 0.0 0.0 - 0.4 x10(3)/mc L [facility] Basophil % 0.4 % [facility] Baso Absolute 0.0 0.0 - 0.1 x10(3)/ L ST. [...] differential will be performed. Immature Gran Absolute 0.05(H) 0.00 - 0.04 x10(3)/ L [facility] Blood specimen (specimen) 07/16/2017 4:00 AM EDT 07/16/2017 4:16 AM EDT Narrative Resulting Agency Comment Spec In Lab Sriram Contreras MD HEMATOLOGY ORDERAB LES Performing Organization Address City/State/[facility] Co de Phone Number [facility] [place] [address] * (ABNORMAL) Hemogram (07/16/2017 4:00 AM EDT) White Blood Cell 10.2(H) 4.0 - 9.5 x10(3)/ L [facility] Red Blood Cell 3.95(L) 4.58 - 5.54 x10(6)/ L [facility] Hemoglobin 12.4(L) 13.7 - 16.5 gm/dL [facility] Hematocrit 37.2(L) 40.5 - 48.5 % [facility] Mean Cell Volume 94.2(H) 82.9 - 93.[address] [facility] Mean Cell Hemoglobin 31.4 27.5 - 32.[address] [facility] Mean Cell Hemoglobin Concentration 33.3 32.0 - 35.7 gm/dL [facility] Platelet 126(L) 145 - 357 x10(3)/[facility] RDW Standard Deviation 50.0(H) 36.0 - 45.[address] [facility] RDW coefficient of variation 14.3(H) 11.4 - 13.8 % [facility] Mean Platelet Volume 10.3 7.6 - 12.[address] [facility] NRBC% auto 0.0 % [facility] NRBC Absolute 0.000 0.000 - 0.000 x10(3)/mc L [facility] Blood specimen (specimen) 07/16/2017 4:00 AM EDT 07/16/2017 4:16 AM EDT Narrative Resulting Agency Comment Spec In Lab Sriram Contreras MD HEMATOLOGY ORDERAB LES [facility] [place] [address] * (ABNORMAL) Basic Metabolic Panel (non-fasting) (07/16/2017 4:00 AM EDT) Glucose 131 65 - 199 mg/dL [facility] Comment:Diabetes: >=200 mg/d L plus symptoms Blood Urea Nitrogen 16 10 - 20 mg/dL [facility] Creatinine 0.82 0.80 - 1.50 mg/dL [facility] Comment: Please note that the pediatric reference intervals supplied above were not validated at [facility]. Results from pediatric patients should be interpreted [...] - 107 mmol/L [facility] Carbon Dioxide 21(L) 22 - 31 mmol/L [facility] Anion Gap 17(H) 5 - 15 mmol/L [facility] Calcium 8.1(L) 8.5 - 10.5 mg/dL [facility] Est Glomerular Filtration Rate >60 >=60 [facility] Comment: This estimated GFR (eGFR) value [...] the following links into your internet browser. [email or web address] Blood specimen (specimen) 07/16/2017 4:00 AM EDT 07/16/2017 4:16 AM EDT Narrative Resulting Agency Comment Spec In Lab Sriram Contreras MD CHEMISTRY ORDERABL ES Performing Organization Address [facility]/ZIP Co de Phone Number [facility] [place] [address] * POCT Glucose (07/15/2017 12:26 PM EDT) Glucose, POC 75 65 - 199 mg/dL [facility] Comment: Supplemental ranges: <140 mg/dL before meals <180 mg/dL all other times of the day Blood specimen (specimen) 07/15/2017 12:26 PM EDT 07/15/2017 12:26 PM EDT Sriram Contreras MD POINT OF CARE TEST ORDERABLES Performing Organization Address City/[facility]/ZIP Co de Phone Number [facility] [place] [address] * (ABNORMAL) Basic Metabolic Panel (non-fasting) (07/15/2017 10:20 AM EDT) Glucose 111 65 - 199 mg/dL [facility] Comment:Diabetes: >=200 mg/d L plus symptoms Blood Urea Nitrogen 19 10 - 20 mg/dL [facility] Creatinine 0.96 0.80 - 1.50 mg/dL [facility] Comment: Please note that the pediatric reference intervals supplied above were not validated at [facility]. Results from pediatric patients should be interpreted [...] - 107 mmol/L [facility] Carbon Dioxide 22 22 - 31 mmol/L [facility] Anion Gap 14 5 - 15 mmol/L [facility] Calcium 8.2(L) 8.5 - 10.5 mg/dL [facility] Est Glomerular Filtration Rate >60 >=60 [facility] Comment: This estimated GFR (eGFR) value [...] the following links into your internet browser. [email or web address] Blood specimen (specimen) 07/15/2017 10:20 AM EDT 07/15/2017 10:24 AM EDT Narrative Resulting Agency Comment Spec In Lab Sriram Contreras MD CHEMISTRY ORDERABL ES [facility] [place] [address] * POCT Glucose (07/15/2017 8:30 AM EDT) Glucose, POC 111 65 - 199 mg/dL [facility] Comment: Supplemental ranges: <140 mg/dL before meals <180 mg/dL all other times of the day Blood specimen (specimen) 07/15/2017 8:30 AM EDT 07/15/2017 8:30 AM EDT Sriram Contreras MD POINT OF CARE TEST ORDERABLES Performing Organization Address City/State/[facility] Co de Phone Number [facility] [place] [address] * (ABNORMAL) BLOOD GAS 2 ARTERIAL (07/15/2017 4:17 AM EDT) [facility] pH, Arterial 7.38 7.35 - 7.45 [facility] PCO2, Arterial 42 35 - [address] [facility] PO2, Arterial 61(L) 85 - [address] [facility] Bicarbonate, Arterial 24.6 20.0 - 26.0 mmol/L [facility] Base Excess, Arterial -0.4 -3.0 - 3.0 mmol/L [facility] Hgb Blood Gas 14.0 13.7 - 16.5 gm/dL [facility] Oxyhemoglobin, Arterial 90.6(L) 94.0 - 97.0 % [facility] Carboxyhemoglob in, Arterial 0.2 % [facility] Comment: Nonsmokers: 0.5-1.5% COHB Smokers: Variable, but usually less than 10% Toxic: 20-30% COHB Lethal: Greater than 60% COHB Methemoglobin, Arterial 0.5 <=1.5 % [facility] Na Whole Blood 139 135 [facility] FIO2 Art 35 % [facility] PF Ratio Art 174 [facility] Blood specimen (specimen) 07/15/2017 4:17 AM EDT 07/15/2017 4:17 AM EDT Sriram Contreras MD POINT OF CARE TEST ORDERABLES Performing Organization Address City/State/[facility] Co de Phone Number [facility] [place] [address] * (ABNORMAL) Differential, Automated (07/15/2017 4:15 AM EDT) Neutrophil % 84.7 % [facility] Neutrophil Absolute 12.39(H) 1.70 - 6.10 x10(3)/mc L [facility] Lymph % 6.2 % [facility] Lymphocytes Abs 0.9 0.9 - 3.2 x10(3)/mc L [facility] Monocyte % 8.0 % [facility] Monocyte Abs 1.2(H) 0.3 - 0.9 x10(3)/mc L [facility] Eos % 0.0 % [facility] Eosinophils Abs 0.0 0.0 - 0.4 x10(3)/mc L [facility] Basophil % 0.1 % [facility] Baso Absolute 0.0 0.0 - 0.1 x10(3)/mc L ST. [...] differential will be performed. Immature Gran Absolute 0.14(H) 0.00 - 0.04 x10(3)/mc L [facility] Blood specimen (specimen) 07/15/2017 4:15 AM EDT 07/15/2017 4:28 AM EDT Narrative Resulting Agency Comment Spec In Lab Sriram Contreras MD HEMATOLOGY ORDERAB LES Performing Organization Address City/State/[facility] Co de Phone Number [facility] [place] [address] * (ABNORMAL) Hemogram (07/15/2017 4:15 AM EDT) White Blood Cell 14.6(H) 4.0 - 9.5 x10(3)/mc L [facility] Red Blood Cell 4.16(L) 4.58 - 5.54 x10(6)/mc L [facility] Hemoglobin 13.0(L) 13.7 - 16.5 gm/dL [facility] LABORATORY Hematocrit 38.9(L) 40.5 - 48.5 % [facility] Mean Cell Volume 93.5(H) 82.9 - 93.[address] [facility] Mean Cell Hemoglobin 31.3 27.5 - 32.[address] [facility] Mean Cell Hemoglobin Concentration 33.4 32.0 - 35.7 gm/dL [facility] Platelet 135(L) 145 - 357 x10(3)/mc L [facility] RDW Standard Deviation 48.8(H) 36.0 - 45.[address] [facility] RDW coefficient of variation 14.2(H) 11.4 - 13.8 % [facility] Mean Platelet Volume 10.0 7.6 - 12.9 [facility] LABORATORY NRBC% auto 0.0 % [facility] NRBC Absolute 0.000 0.000 - 0.000 x10(3)/mc L [facility] Blood specimen (specimen) 07/15/2017 4:15 AM EDT 07/15/2017 4:28 AM EDT Narrative Resulting Agency Comment Spec In Lab Sriram Contreras MD HEMATOLOGY ORDERAB LES Performing Organization Address [facility] Co de Phone Number [facility] [place] [address] * Potassium (07/14/2017 8:20 PM EDT) Potassium [...] MD CHEMISTRY ORDERABL ES Performing Organization Address [facility] Co de Phone Number [facility] [place] [address] * (ABNORMAL) Magnesium (07/14/2017 8:20 PM EDT) Magnesium 1.08(H) 0.69 - 1.07 mmol/L [facility] Blood specimen (specimen) 07/14/2017 8:20 PM EDT 07/14/2017 8:31 PM EDT Narrative Resulting Agency Comment Spec In Lab Sriram Contreras MD CHEMISTRY ORDERABL ES Performing Organization Address [facility] Co de Phone Number [facility] [place] [address] * Magnesium (07/14/2017 4:30 PM EDT) Pathologist [facility] Magnesium 0.86 0.69 - 1.07 mmol/L [facility] Blood specimen (specimen) 07/14/2017 4:30 PM EDT 07/14/2017 4:50 PM EDT Narrative Resulting Agency Comment Spec In Lab Sriram Contreras MD CHEMISTRY ORDERABL ES Performing Organization Address [facility] de Phone Number [facility] [place] [address] * POCT Glucose (07/14/2017 4:26 PM EDT) [facility] Glucose, POC 146 65 - 199 mg/dL [facility] Comment: Supplemental ranges: <140 mg/dL before meals <180 mg/dL all other times of the day Blood specimen (specimen) 07/14/2017 4:26 PM EDT 07/14/2017 4:26 PM EDT Sriram Contreras MD POINT OF CARE TEST ORDERABLES Performing Organization Address [facility] de Phone Number [facility] [place] [address] * EKG 12 Lead (07/14/2017 12:37 PM EDT) Pathologist [facility] Ventricular rate 67 BPM MUSE SYSTEM Atrial Rate 67 BPM MUSE SYSTEM P-R Interval 216 ms MUSE SYSTEM QRS Duration 100 ms MUSE SYSTEM Q-T Interval 438 ms MUSE SYSTEM QTC Calculated (Bezet) 462 ms MUSE SYSTEM Calculated P [place] 58 degrees MUSE SYSTEM Calculated R [place] 56 degrees MUSE SYSTEM Calculated T [place] 38 degrees MUSE SYSTEM INTERPRETATION Sinus rhythm with 1st degree A-V block Otherwise normal ECG When compared with ECG of 29-MAR-1997 12:50, [place] interval has increased Confirmed by MD Radha, Daryl ([id number]) on 07/14/2017 5:07:22 PM MUSE SYSTEM 07/14/2017 12:3 7 PM EDT 07/14/2017 5:07 PM EDT Sriram Contreras MD ECG ORDERABLES MUSE SYSTEM * POCT Glucose (07/14/2017 12:05 PM EDT) Glucose, POC 147 65 - 199 mg/dL [facility] Comment: Supplemental ranges: <140 mg/dL before meals <180 mg/dL all other times of the day Blood specimen (specimen) 07/14/2017 12:05 PM EDT 07/14/2017 12:05 PM EDT Sriram Contreras MD POINT OF CARE TEST ORDERABLES Performing Organization Address [facility] Co de Phone Number [facility] [place] [address] * POCT Glucose (07/14/2017 8:25 AM EDT) Glucose, POC 140 65 - 199 mg/dL [facility] Comment: Supplemental ranges: <140 mg/dL before meals <180 mg/dL all other times of the day Blood specimen (specimen) 07/14/2017 8:25 AM EDT 07/14/2017 8:25 AM EDT Sriram Contreras MD POINT OF CARE TEST ORDERABLES Performing Organization Address [facility] Co de Phone Number [facility] [place] [address] * (ABNORMAL) Differential, Automated (07/14/2017 12:36 AM EDT) Neutrophil % 90.3 % [facility] Neutrophil Absolute 13.17(H) 1.70 - 6.10 x10(3)/mc L [facility] Lymph % 3.8 % [facility] Lymphocytes Abs 0.6(L) 0.9 - 3.2 x10(3)/mc L [facility] Monocyte % 5.4 % [facility] Monocyte Abs 0.8 0.3 - 0.9 x10(3)/[facility] LABORATORY Eos % 0.0 % [facility] Eosinophils Abs 0.0 0.0 - 0.4 x10(3)/[facility] LABORATORY Basophil % 0.1 % [facility] Baso Absolute 0.0 0.0 - 0.1 x10(3)/[facility] LABORATORY Immature Gran % 0.40 % [facility] Comment: Immature granulocytes(IG's)percentage and absolute count will include metamyelocytes, myelocytes, and promyelocytes. Blood smears from CBCs yielding IG's will be scanned manually for concordance. If this scan disagrees with the automated IG or if promyelocytes are noted, a manual differential will be performed. Immature Gran Absolute 0.06(H) 0.00 - 0.04 x10(3)/[facility] LABORATORY Blood specimen (specimen) 07/14/2017 12:36 AM EDT 07/14/2017 12:41 AM EDT Narrative Resulting Agency Comment Spec In Lab Sriram Contreras MD HEMATOLOGY ORDERAB LES Performing Organization Address City/State/[facility] Co de Phone Number [facility] [place] [address] * (ABNORMAL) Hemogram (07/14/2017 12:36 AM EDT) White Blood Cell 14.6(H) 4.0 - 9.5 x10(3)/[facility] LABORATORY Red Blood Cell 4.57(L) 4.58 - 5.54 x10(6)/[facility]ORY Hemoglobin 14.1 13.7 - 16.5 gm/dL [facility] Hematocrit 42.1 40.5 - 48.5 % [facility] Mean Cell Volume 92.1 82.9 - 93.[address] [facility] Mean Cell Hemoglobin 30.9 27.5 - 32.[address] [facility] Mean Cell Hemoglobin Concentration 33.5 32.0 - 35.7 gm/dL [facility] Platelet 157 145 - 357 x10(3)/mc L [facility] RDW Standard Deviation 48.6(H) 36.0 - 45.0 [facility] RDW coefficient of variation 14.4(H) 11.4 - 13.8 % [facility] Mean Platelet Volume 10.2 7.6 - 12.9 [facility]ORY NRBC% auto 0.0 % [facility] NRBC Absolute 0.000 0.000 - 0.000 x10(3)/mc L [facility] Blood specimen (specimen) 07/14/2017 12:36 AM EDT 07/14/2017 12:41 AM EDT Narrative Resulting Agency Comment Spec In Lab Sriram Contreras MD HEMATOLOGY ORDERAB LES Performing Organization Address City/[facility]/ZIP Co de Phone Number [facility] [place] [address] * (ABNORMAL) Magnesium (07/14/2017 12:36 AM EDT) Magnesium 0.65(L) 0.69 - 1.07 mmol/L [facility] Blood specimen (specimen) 07/14/2017 12:36 AM EDT 07/14/2017 12:41 AM EDT Narrative Resulting Agency Comment Spec In Lab Sriram Contreras MD CHEMISTRY ORDERABL ES Performing Organization Address City/[facility]/ZIP Co de Phone Number [facility] [place] [address] * Phosphorus (07/14/2017 12:36 AM EDT) Phosphorus 3.3 2.5 - 4.5 mg/dL [facility] Blood specimen (specimen) 07/14/2017 12:36 AM EDT 07/14/2017 12:41 AM EDT Narrative Resulting Agency Comment Spec In Lab Sriram Contreras MD CHEMISTRY ORDERABL ES Performing Organization Address [facility]/ZIP Co de Phone Number [facility] [place] [address] * Prealbumin (07/14/2017 12:36 AM EDT) Prealbumin 23 20 - 40 mg/dL [facility] Comment: Prealbumin levels are generally lower in the pediatric population; adult concentrations are usually attained near puberty. Blood specimen (specimen) 07/14/2017 12:36 AM EDT 07/14/2017 12:45 AM EDT Narrative Resulting Agency Comment Spec In Lab Sriram Contreras MD CHEMISTRY ORDERABL ES Performing Organization Address [facility] Co de Phone Number [facility] [place] [address] * (ABNORMAL) Basic Metabolic Panel (non-fasting) (07/14/2017 12:36 AM EDT) Glucose 161 65 - 199 mg/dL [facility] Comment:Diabetes: >=200 mg/d L plus symptoms Blood Urea Nitrogen 16 10 - 20 mg/dL [facility] Creatinine 0.97 0.80 - 1.50 mg/dL [facility] Comment: Please note that the pediatric reference intervals supplied above were not validated at [facility]. Results from pediatric patients should be interpreted [...] - 107 mmol/L [facility] Carbon Dioxide 19(L) 22 - 31 mmol/L [facility] Anion Gap 17(H) 5 - 15 mmol/L [facility] Calcium 7.7(L) 8.5 - 10.5 mg/dL [facility] Est Glomerular Filtration Rate >60 >=60 [facility] Comment: This estimated GFR (eGFR) value [...] the following links into your internet browser. [email or web address] Blood specimen (specimen) 07/14/2017 12:36 AM EDT 07/14/2017 12:41 AM EDT Narrative Resulting Agency Comment Spec In Lab Sriram Contreras MD CHEMISTRY ORDERABL ES [facility] [place] [address] * (ABNORMAL) Basic Metabolic Panel (non-fasting) (07/13/2017 9:33 PM EDT) Glucose 147 65 - 199 mg/dL [facility] Comment:Diabetes: >=200 mg/d L plus symptoms Blood Urea Nitrogen 17 10 - 20 mg/dL [facility] Creatinine 1.16 0.80 - 1.50 mg/dL [facility] Comment: Please note that the pediatric reference intervals supplied above were not validated at [facility]. Results from pediatric patients should be interpreted [...] Read back by: maddie rucker, Date/Time:07/13/17 22:12. Carbon Dioxide 18(L) 22 - 31 mmol/L [facility] Anion Gap Not Calculated 5 - 15 mmol/L [facility] Calcium 7.3(L) 8.5 - 10.5 mg/dL [facility] Est Glomerular Filtration Rate >60 >=60 [facility] Comment: [...] the following links into your internet browser. [email or web address] Blood specimen (specimen) 07/13/2017 9:33 PM EDT 07/13/2017 9:41 PM EDT Narrative Resulting Agency Comment Spec In Lab Sriram Contreras MD CHEMISTRY ORDERABL ES [facility] [place] [address] * XR Chest PA or AP 1 [...] MD PATHOLOGY/CYTOLOGY ORDERABLES [facility] [place] [address] * Specimen to Pathology (surgical or derm) (07/13/2017 7:05 PM EDT) AP Specimen 07/13/2017 7:05 PM EDT 07/13/2017 7:05 PM EDT [facility] - 07/13/2017 7:05 PM EDT Specimen requisition ordered. ??Separate Pathology report to follow Sriram Contreras MD PATHOLOGY/CYTOLOGY ORDERABLES Performing Organization Address [facility] [place] [address] * Specimen to Pathology (surgical or derm) (07/13/2017 6:21 PM EDT) AP Specimen 07/13/2017 6:21 PM EDT 07/13/2017 6:21 PM EDT [facility] - 07/13/2017 6:21 PM EDT Specimen requisition ordered. ??Separate Pathology report to follow Sriram Contreras MD PATHOLOGY/CYTOLOGY ORDERABLES Performing Organization Address [facility] [place] [address] * Specimen to Pathology (surgical or derm) (07/13/2017 5:30 PM EDT) AP Specimen 07/13/2017 5:30 PM EDT 07/13/2017 5:30 PM EDT [facility] - 07/13/2017 5:30 PM EDT Specimen requisition ordered. ??Separate Pathology report to follow Sriram Contreras MD PATHOLOGY/CYTOLOGY ORDERABLES Performing Organization Address [facility] [place] [address] * Specimen to Pathology (surgical or derm) (07/13/2017 5:30 PM EDT) AP Specimen 07/13/2017 5:30 PM EDT 07/13/2017 5:30 PM EDT [facility] - 07/13/2017 5:30 PM EDT Specimen requisition ordered. ??Separate Pathology report to follow Sriram Contreras MD PATHOLOGY/CYTOLOGY ORDERABLES [facility] [place] [address] * Specimen to Pathology (surgical or derm) (07/13/2017 5:30 PM EDT) AP Specimen 07/13/2017 5:30 PM EDT 07/13/2017 5:[address] [facility] - 07/13/2017 5:30 PM EDT Specimen requisition ordered. ??Separate Pathology report to follow Sriram Contreras MD PATHOLOGY/CYTOLOGY ORDERABLES Performing Organization Address City/[facility]/[place] [address] * Specimen to Pathology (surgical or derm) (07/13/2017 5:30 PM EDT) AP Specimen 07/13/2017 5:30 PM EDT 07/13/2017 5:[address] [facility] - 07/13/2017 5:30 PM EDT Specimen requisition ordered. ??Separate Pathology report to follow Sriram Contreras MD PATHOLOGY/CYTOLOGY ORDERABLES Performing Organization Address City/[facility]/ZIP Co de Phone Number [facility] [place] [address] * Specimen to Pathology (surgical or derm) (07/13/2017 5:21 PM EDT) AP Specimen 07/13/2017 5:21 PM EDT 07/13/2017 5:[address] [facility] - 07/13/2017 5:21 PM EDT Specimen requisition ordered. ??Separate Pathology report to follow Sriram Contreras MD PATHOLOGY/[place] [address] * Specimen to Pathology (surgical or derm) (07/13/2017 5:21 PM EDT) AP Specimen 07/13/2017 5:21 PM EDT 07/13/2017 5:21 PM EDT [facility] - 07/13/2017 5:21 PM EDT Specimen requisition ordered. ??Separate Pathology report to follow Sriram Contreras MD PATHOLOGY/CYTOLOGY ORDERABLES Performing Organization Address [facility] [place] [address] * Specimen to Pathology (surgical or derm) (07/13/2017 5:21 PM EDT) AP Specimen 07/13/2017 5:21 PM EDT 07/13/2017 5:21 PM EDT [facility] - 07/13/2017 5:21 PM EDT Specimen requisition ordered. ??Separate Pathology report to follow Sriram Contreras MD PATHOLOGY/CYTOLOGY ORDERABLES Performing Organization Address [facility] [place] [address] * Specimen to Pathology (surgical or derm) (07/13/2017 5:16 PM EDT) AP Specimen 07/13/2017 5:16 PM EDT 07/13/2017 5:16 PM EDT [facility] - 07/13/2017 5:16 PM EDT Specimen requisition ordered. ??Separate Pathology report to follow Sriram Contreras MD PATHOLOGY/CYTOLOGY ORDERABLES Performing Organization Address [facility] [place] [address] * Specimen to Pathology (surgical or derm) (07/13/2017 5:05 PM EDT) AP Specimen 07/13/2017 5:05 PM EDT 07/13/2017 5:05 PM EDT [facility] - 07/13/2017 5:05 PM EDT Specimen requisition ordered. ??Separate Pathology report to follow Sriram Contreras MD PATHOLOGY/[place] [address] * Specimen to Pathology (surgical or derm) (07/13/2017 5:05 PM EDT) AP Specimen 07/13/2017 5:05 PM EDT 07/13/2017 5:[address] [facility] - 07/13/2017 5:05 PM EDT Specimen requisition ordered. ??Separate Pathology report to follow Sriram Contreras MD PATHOLOGY/CYTOLOGY ORDERABLES Performing Organization Address City/[facility]/[place] [address] * Specimen to Pathology (surgical or derm) (07/13/2017 4:39 PM EDT) AP Specimen 07/13/2017 4:39 PM EDT 07/13/2017 4:[address] [facility] - 07/13/2017 4:39 PM EDT Specimen requisition ordered. ??Separate Pathology report to follow Sriram Contreras MD PATHOLOGY/CYTOLOGY ORDERABLES Performing Organization Address City/[facility]/ZIP Co de Phone Number [facility] [place] [address] * Specimen to Pathology (surgical or derm) (07/13/2017 4:35 PM EDT) AP Specimen 07/13/2017 4:35 PM EDT 07/13/2017 4:35 PM EDT [facility] - 07/13/2017 4:35 PM EDT Specimen requisition ordered. ??Separate Pathology report to follow Sriram Contreras MD PATHOLOGY/CYTOLOGY ORDERABLES Performing Organization Address City/[facility]/[place] [address] * Specimen to Pathology (surgical or derm) (07/13/2017 4:35 PM EDT) AP Specimen 07/13/2017 4:35 PM EDT 07/13/2017 4:[address] [facility] - 07/13/2017 4:35 PM EDT Specimen requisition ordered. ??Separate Pathology report to follow Sriram Contreras MD PATHOLOGY/CYTOLOGY ORDERABLES Performing Organization Address [facility] [place] [address] * Specimen to Pathology (surgical or derm) (07/13/2017 3:52 PM EDT) AP Specimen 07/13/2017 3:52 PM EDT 07/13/2017 3:[address] [facility] - 07/13/2017 3:52 PM EDT Specimen requisition ordered. ??Separate Pathology report to follow Sriram Contreras MD PATHOLOGY/CYTOLOGY ORDERABLES Performing Organization Address [facility] [place] [address] * Specimen to Pathology (surgical or derm) (07/13/2017 3:52 PM EDT) AP Specimen 07/13/2017 3:52 PM EDT 07/13/2017 3:[address] [facility] - 07/13/2017 3:52 PM EDT Specimen requisition ordered. ??Separate Pathology report to follow Sriram Contreras MD PATHOLOGY/CYTOLOGY ORDERABLES Performing Organization Address [facility] Co de Phone Number [facility] [place] [address] * (ABNORMAL) BLOOD GAS 2 ARTERIAL (07/13/2017 3:46 PM EDT) pH, Arterial 7.31(L) 7.35 - 7.45 [facility] PCO2, Arterial 37 35 - [address] [facility] PO2, Arterial 103 85 - [address] [facility] Bicarbonate, Arterial 17.8(L) 20.0 - 26.0 mmol/L [facility] Base Excess, Arterial -8.5(L) -3.0 - 3.0 mmol/L [facility] Hgb Blood Gas 15.1 13.7 - 16.5 gm/dL [facility] Oxyhemoglobin, Arterial 96.6 94.0 - 97.0 % [facility] Carboxyhemoglob in, Arterial 0.4 % [facility] Comment: Nonsmokers: 0.5-1.5% COHB Smokers: Variable, but usually less than 10% Toxic: 20-30% COHB Lethal: Greater than 60% COHB Methemoglobin, Arterial 0.3 <=1.5 % [facility] Na Whole Blood 139 135 [...] 07/13/2017 3:46 PM EDT Sriram Contreras MD POINT OF CARE TEST ORDERABLES [facility] [place] [address] * (ABNORMAL) BLOOD GAS 2 ARTERIAL (07/13/2017 2:06 PM EDT) pH, Arterial 7.32(L) 7.35 - 7.45 [facility] PCO2, Arterial 32(L) 35 - [address] [facility] PO2, Arterial 96 85 - [address] [facility] Bicarbonate, Arterial 16.0(L) 20.0 - 26.0 mmol/L [facility] Base Excess, Arterial -10.1(L) -3.0 - 3.0 mmol/L [facility] Hgb Blood Gas 14.0 13.7 - 16.5 gm/dL [facility] Oxyhemoglobin, Arterial 96.1 94.0 - 97.0 % [facility] Carboxyhemoglob in, Arterial 1.1 % [facility] Comment: Nonsmokers: 0.5-1.5% COHB Smokers: Variable, but usually less than 10% Toxic: 20-30% COHB Lethal: Greater than 60% COHB Methemoglobin, Arterial 0.3 <=1.5 % [facility] Na Whole Blood 139 135 [...] 07/13/2017 2:06 PM EDT Sriram Contreras MD POINT OF CARE TEST ORDERABLES [facility] [place] [address] * (ABNORMAL) Comprehensive metabolic panel (non-fasting) (07/13/2017 12:56 PM EDT) Glucose 155 65 - 199 mg/dL [facility] Comment:Diabetes: >=200 mg/d L plus symptoms Blood Urea Nitrogen 17 10 - 20 mg/dL [facility] Creatinine 1.06 0.80 - 1.50 mg/dL [facility] Comment: Please note that the pediatric reference intervals supplied above were not validated at [facility]. Results from pediatric patients should be interpreted [...] - 107 mmol/L [facility] Carbon Dioxide 20(L) 22 - 31 mmol/L [facility] Anion Gap 14 5 - 15 mmol/L [facility] Calcium 7.9(L) 8.5 - 10.5 mg/dL [facility] Protein, Total 6.2 6.1 - 8.0 gm/dL [facility] Albumin 3.6 3.2 - 5.2 gm/dL [facility] Aspartate Aminotransferase 15 0 - 39 unit/L [facility] Alanine Aminotransferase 13 0 - 55 unit/L [facility] Alkaline Phosphatase 70 40 - 120 unit/L [facility] Bilirubin, Total 0.2 0.2 - 1.3 mg/dL [facility] Est Glomerular Filtration Rate >60 >=60 [facility] Comment: [...] the following links into your internet browser. [email or web address] Blood specimen (specimen) 07/13/2017 12:56 PM EDT 07/13/2017 1:02 PM EDT Narrative Resulting Agency Comment Spec In Lab Sriram Contreras MD CHEMISTRY ORDERABL ES [facility] [place] [address] * (ABNORMAL) BLOOD GAS 2 ARTERIAL (07/13/2017 12:15 PM EDT) pH, Arterial 7.34(L) 7.35 - 7.45 [facility] PCO2, Arterial 39 35 - [address] [facility] PO2, Arterial 68(L) 85 - [address] [facility] Bicarbonate, Arterial 20.4 20.0 - 26.0 mmol/L [facility] Base Excess, Arterial -5.4(L) -3.0 - 3.0 mmol/L [facility] Hgb Blood Gas 15.8 13.7 - 16.5 gm/dL [facility] Oxyhemoglobin, Arterial 91.8(L) 94.0 - 97.0 % [facility] Carboxyhemoglob in, Arterial 0.9 % [facility] Comment: Nonsmokers: 0.5-1.5% COHB Smokers: Variable, but usually less than 10% Toxic: 20-30% COHB Lethal: Greater than 60% COHB Methemoglobin, Arterial 0.3 <=1.5 % [facility] Na Whole Blood 138 135 [...] 07/13/2017 12:15 PM EDT Sriram Contreras MD POINT OF CARE TEST ORDERABLES [facility] [place] [address] * Surgical Pathology Report (07/13/2017 12:04 PM EDT) Final Diagnosis [id number] ? Location: ICUS; IC14; A The signing [...] iglottic): Green ??Right epiglottis: Blue ??Lateral pharynx: Dawson ??Base of tongue mucosa + deep: Blue [...] edge; (6) tumor to closest lateral pharynx (Dawson) and deep specimen edges (black); (7) tumor [...] entire specimen and special studies, if any. 07/21/2017 9:[address] [facility] MOUTH REGION STRUCTURE / Unknown 07/13/2017 12:04 PM EDT 07/13/2017 12:04 PM EDT Margin 07/13/2017 12:0 4 PM EDT 07/13/2017 12:04 PM EDT Frozen Specimen 07/13/2017 1 2:04 PM EDT 07/13/2017 12:04 PM EDT Frozen Specimen 07/13/2017 1 2:04 PM EDT 07/13/2017 12:04 PM EDT Frozen Specimen 07/13/2017 1 2:04 PM EDT 07/13/2017 12:04 PM EDT Frozen Specimen 07/13/2017 1 2:04 PM EDT 07/13/2017 12:04 PM EDT Frozen Specimen 07/13/2017 1 2:04 PM EDT 07/13/2017 12:04 PM EDT Frozen Specimen 07/13/2017 1 2:04 PM EDT 07/13/2017 12:04 PM EDT Frozen Specimen 07/13/2017 1 2:04 PM EDT 07/13/2017 12:04 PM EDT Frozen Specimen 07/13/2017 1 2:04 PM EDT 07/13/2017 12:04 PM EDT LYMPH NODE SPECIMEN / Unknown 07/13/2017 12:04 PM EDT 07/13/2017 12:04 PM EDT LYMPH NODE SPECIMEN / Unknown 07/13/2017 12:04 PM EDT 07/13/2017 12:04 PM EDT LYMPH NODE SPECIMEN / Unknown 07/13/2017 12:04 PM EDT 07/13/2017 12:04 PM EDT LYMPH NODE SPECIMEN / Unknown 07/13/2017 12:04 PM EDT 07/13/2017 12:04 PM EDT Margin 07/13/2017 12:0 4 PM EDT 07/13/2017 12:04 PM EDT MOUTH REGION STRUCTURE / Unknown 07/13/2017 12:04 PM EDT 07/13/2017 12:04 PM EDT Margin 07/13/2017 12:0 4 PM EDT 07/13/2017 12:04 PM EDT MOUTH REGION STRUCTURE / Unknown 07/13/2017 12:04 PM EDT 07/13/2017 12:04 PM EDT MOUTH REGION STRUCTURE / Unknown 07/13/2017 12:04 PM EDT 07/13/2017 12:04 PM EDT Sriram Contreras MD PATHOLOGY/CYTOLOGY ORDERABLES Performing Organization Address City/[facility]/ZIP Co de Phone Number [facility] [place] [address] * Specimen to Pathology (surgical or derm) (07/13/2017 12:02 PM EDT) AP Specimen 07/13/2017 12:0 2 PM EDT 07/13/2017 12:[address] [facility] - 07/13/2017 12:02 PM EDT Specimen requisition ordered. ??Separate Pathology report to follow Sriram Contreras MD PATHOLOGY/CYTOLOGY ORDERABLES Performing Organization Address City/[facility]/[place] [address] * (ABNORMAL) BLOOD GAS 2 ARTERIAL (07/13/2017 10:35 AM EDT) pH, Arterial 7.31(L) 7.35 - 7.45 [facility] PCO2, Arterial 45 35 - [address] [facility] PO2, Arterial 87 85 - [address] [facility] Bicarbonate, Arterial 22.2 20.0 - 26.0 mmol/L [facility] Base Excess, Arterial -4.0(L) -3.0 - 3.0 mmol/L [facility] Hgb Blood Gas 15.6 13.7 - 16.5 gm/dL [facility] Oxyhemoglobin, Arterial 95.0 94.0 - 97.0 % [facility] Carboxyhemoglob in, Arterial 0.9 % [facility] Comment: Nonsmokers: 0.5-1.5% COHB Smokers: Variable, but usually less than 10% Toxic: 20-30% COHB Lethal: Greater than 60% COHB Methemoglobin, Arterial 0.0 <=1.5 % [facility] Na Whole Blood 138 135 [...] 07/13/2017 10:35 AM EDT Sriram Contreras MD POINT OF CARE TEST ORDERABLES [facility] [place] [address] * AB[facility] Recheck Status (07/13/2017 6:27 AM EDT) [facility] Recheck Order Order Placed [facility] AB[facility] Type Recheck Complete [facility] Blood specimen (specimen) 07/13/2017 6:27 AM EDT 07/13/2017 6:38 AM EDT Narrative Resulting Agency Comment Spec In Lab Sriram Contreras MD BLOOD BANK LAB ORD ERABLES Performing Organization Address [facility]/ZIP Co de Phone Number [facility] [place] [address] * Antibody screen (07/13/2017 6:27 AM EDT) Ab Screen Interp Negative [facility] Expires at [id number] on: 07/16/2017 [facility] Blood specimen (specimen) 07/13/2017 6:27 AM EDT 07/13/2017 6:43 AM EDT Narrative Resulting Agency Comment Spec In Lab Sriram Contreras MD BLOOD BANK LAB ORD ERABLES Performing Organization Address [facility]/ZIP Co de Phone Number [facility] [place] [address] * ABO/Rh Typing (07/13/2017 6:27 AM EDT) ABORH Type O Neg [facility] Blood specimen (specimen) 07/13/2017 6:27 AM EDT 07/13/2017 6:43 AM EDT Narrative Resulting Agency Comment Spec In Lab Sriram Contreras MD BLOOD BANK LAB ORD ERABLES Performing Organization Address City/[facility] Co de Phone Number [facility] [place] [address] documented in this encounter Visit Diagnoses Diagnosis [...] PRN, Starting on Wed07/14/17 at 1621, Until Shabana 07/29/17 at 1535, Wheezing, Routine, Is there a [...] doses, First dose (after last reorder) on Wed07/17/17 at 1300, Last dose on Wed07/18/17 at 0600 Given 07/18/2017 5:36 AM EDT [...] restart at 50% of previous rate. Call cleaner housekeeping if goal not achieved at maximum rate., Routine, Please indicate the name & specialty of the Attending Provider who authorized the use of this medication: Kennedy Martin / Surg Rate/Dose Change 07/17/2017 11:54 PM EDT 0.6 [...] infusion 100 mL/hr, Intravenous, CONTINUOUS, Starting on Tu07/13/17 at 2100, Until Wed07/14/17 at 1159, Warning Vesicant/Irritant Medication , Recovery (Recovery-Hospital Unit) New Bag 07/14/2017 7:34 AM EDT 100 mL/hr 100 mL/hr New Bag 07/13/2017 8:58 PM EDT 100 mL/hr 100 mL/hr dilTIAZem (CARDIZEM) 100 mg in dextrose 5% 100 mL infusion 5-15 mg/hr (5-15 mL/hr), Intravenous, CONTINUOUS, Starting on 07/19/17 at 1730, Until Shabana 07/22/17 at 1020, [...] 25 mg, Intravenous, ONCE, 1 dose, On 07/18/17 at 1830, Routine Given 07/18/2017 6:25 PM [...] mcg/hr (0-4 mL/hr), Intravenous, CONTINUOUS, Starting on Wed07/13/17 at 2115, Until 07/17/17 at 1035, Pain [...] PRN, Starting on Wed07/19/17 at 1756, Until Wed07/25/17 at 1203, Pain, Refer to infusion order [...] 20 mg, Intravenous, ONCE, 1 dose, On Wed07/23/17 at 1030 Given 07/23/2017 10:35 AM EDT [...] Intravenous, EVERY 6 HOURS PRN, Starting on [place] 07/18/17 at 0306, Until [place] 07/18/17 at 1313, Agitation, Routine Given 07/18/2017 1:02 PM EDT 5 mg Given 07/18/2017 3:47 AM EDT 5 mg haloperidol lactate (HALDOL) injection 5 mg 5 mg, Intravenous, EVERY 6 HOURS, First dose (after last modification) on [place] 07/18/17 at 1930, Until Discontinued, Routine Given [...] Units/hr (0-100 mL/hr), Intravenous, CONTINUOUS, Starting on 07/20/17 at 1715, Until Wed07/27/17 at 1739, Begin [...] EVERY 4 HOURS SCHEDULED, First dose on 9/10/17 at 1245, Until Discontinued, CORRECTION BOLUS Sensitive [...] Intravenous, ONCE PRN, 1 dose, Starting on 07/20/17 at 1318, Until Tu07/20/17 at 1318, Per [...] IV bolus Intravenous, ONCE, 1 dose, On 07/21/17 at 2300 Given 07/21/2017 11:30 PM EDT lactated Ringers infusion 1,000 mL 1,000 mL, at 100 mL/hr, Intravenous, CONTINUOUS, Starting on Wed07/13/17 at 0730, Until Wed07/13/17 at 2003, Day of Surgery (Day of Procedure) New Bag 07/13/2017 7:48 AM EDT New Bag 07/13/2017 7:19 AM EDT 1,000 mLs 100 mL/hr lactated Ringers infusion 100 mL/hr, Intravenous, CONTINUOUS, Starting on Shabana 07/15/17 at 0000, Until Shabana 07/15/17 at 1703 New Bag 07/15/2017 9:54 AM EDT 100 mL/hr 100 mL/hr New Bag 07/15/2017 12:12 AM EDT 100 mL/hr 100 mL/hr lactated Ringers infusion 10 mL/hr, Intravenous, CONTINUOUS, Starting on 07/19/17 at 2130, Until Wed07/28/17 at 0726, KVO [...] mg/mL) external solution Topical (Top), ONCE, On Wed07/17/17 at 1615, 1 dose, GURPREET CASTRO: cabinet [...] 2 g, Intravenous, ONCE, 1 dose, On Wed07/17/17 at 2330, Administer over 120 Minutes New [...] at 1647, Until Wed07/19/17 at 1701, CAS RIVERA: cabinet override meTOPROLOL (LOPRESSOR) injection 5 mg 5 mg, Intravenous, EVERY 6 HOURS, First dose on Wed07/14/17 at 1130, Until Discontinued, Please hold and notify internet sales manager for SBP under 100 and/or HR under [...] on Wed07/13/17 at 2041, Until Wed07/13/17 at 2058, MENDOZA LEO: cabinet override propofol (DIPRIVAN) infusion [...] restart at 50% of previous rate. Call cleaner housekeeping if goal not achieved at maximum rate., Routine New Bag 07/17/2017 9:17 AM EDT 50 mcg/kg/min 40 m L/hr Rate/Dose Change 07/17/2017 7:00 AM EDT 30 mcg/kg/min 24 m L/hr Rate/Dose Change 07/17/2017 6:00 AM EDT 40 mcg/kg/min 32 m L/hr propofol (DIPRIVAN) infusion 0-50 mcg/kg/min ? 142.5 kg (0-42.75 mL/hr, rounded to 0-42.8 mL/hr), Intravenous, CONTINUOUS, Starting on Wed07/19/17 at 1815, Until Wed07/25/17 at 1203, Titrate to sedation level of [...] restart at 50% of previous rate. Call cleaner housekeeping if goal not achieved at maximum rate., [...] 0.5 mL, Nebulization, ONCE, 1 dose, On 07/17/17 at 1300, STAT Given 07/17/2017 12:43 PM EDT 0.5 mLs racepinephrine (VAPONEFRIN) 2.25 % nebulizer solution 1 dose, Starting on 07/17/17 at 1239, Until 07/17/17 at 1243, MARTIN SVEN: cabinet override sodium [...] Porter RN)0922 (Given - Provider: Radha Colon, BRENNA)1320 (Given - Provider: Radha Colon, RN) chlorhexidine (PERIDEX) 0.12 % oral solution 15 mL 15 mL, Oral, 2 TIMES DAILY, First dose on Wed07/13/17 at 2115, Until Discontinued, Swab oral cavity. Ventilator-associated pneumonia prophylaxis, Routine 1055 (Given - Provider: Jeannie Stiles RN)2053 (Given - Provider: Dixie Randhawa RN) 0936 (Given - Provider: Jv Valdez, BRENNA)2135 (Given - Provider: Abeba Porter RN) 0923 (Given - Provider: Radha Colon, RN) enoxaparin (LOVENOX) injection 100 mg 100 mg, Subcutaneous, EVERY 12 HOURS SCHEDULED (2 times per day), First dose on Wed07/27/17 at 1700, Until Discontinued, Routine 1608 (Given - Provider: Jeannie Stiles RN) 0935 (Given - Provider: Jv Valdez RN)2135 (Given - Provider: Abeba Porter, BRENNA) 1022 [...] Discontinued, Routine 0900 (Not Given - Provider: Jenanie Stiles RN - Reason: Loss of access) 0935 (Given - Provider: Jv Lyndaker, RN) 0922 (Given - Provider: Radha Colon, RN) magnesium sulfate 2 g in sterile water 50 mL (COMPLETED) 2 g, Intravenous, ONCE, 1 dose, On Wed07/27/17 at 1130, Administer over 120 Minutes 1158 (New Bag - Provider: Jeannie Stiles RN)1358 (Stopped - Provider: Jv Valdez, RN) melatonin tablet 3 mg 3 mg, [...] Jv Valdez, BRENNA)1235 (Given - Provider: Jeannie Stiles, BRENNA)1700 (Given - Provider: Jeannie Stiles RN)2135 (Given [...] RN) 0935 (Given - Provider: Jv Valdez, RN) 0923 (Given - Provider: Radha Colon, RN) [...] Stiles RN)1125 (New Bag - Provider: Jeannie Stiles, BRENNA)1525 (Stopped - Provider: Jeannie Stiles RN)1857 (New [...] BRENNA) 0923 (Given - Provider: Radha Colon, BRENNA) [...] Embolism documented in this encounter Care Teams Media Account Executive Relationship Specialty Start Date End Date Jovon Sifuentes MD [address] [place] [address] PCP - General 09/30/10 09/10/21 documented as of this encounter
--- OUTSIDE RECORDS SUMMARY | 2024-08-28 12:55 | XMS_ITS | Encounter Summary ---
[place] [address] Care Team Providers Care Snag Grinder Name Role Phone Jovon Sifuentes MD Primary Care Provider Reason for Referral * Diagnostic Test (Routine) - Closed Specialty Diagnoses / Procedures Referred By Huma valladares Referred To Contact Radiology Diagnoses Cancer of base of tongue Procedures CT Neck Soft Tissue w Contrast (Generic) Sriram Contreras MD [facility] [place] [address] [facility] [address] [place] [address] Referral ID Status Reason Start Date Expiration Date V isits Requested Visits Authorized [id number] Closed Specialty Service Requested 06/17/2017 06/17/2018 1 [...] Expiration Date Visits Re quested Visits Authorized [id number] 1 1 Encounter Details Date Type Department Care Team (Latest Contact Info) Description 07/13/2017 9:15 AM EDT - 07/13/2017 11:59 PM EDT Hospital Encounter Radiology at [facility] [place] [address] Cancer of base of tongue Discharge Disposition: [...] 10:20 AM EST Office [place] [address] Sriram Contreras MD [facility] [place] [address] 10/31/2024 1:30 PM EST Office Visit Hematology/Oncology at [address] [phone] Dmitry Bhatti MD [facility] DR [place] [address] Ellen Mcrae APRN [facility] [place] [address] 10/31/2024 2:00 PM EST Infusion Hematology Oncology at [address] [phone] documented as of this encounter Procedures Procedure [...] Intravenous, ONCE PRN, 1 dose, Starting on 07/13/17 at 1007, Until 07/13/17 at 1009, Per Protocol, Routine Given 07/13/2017 10:09 AM EDT 110 mLs documented in this encounter Care Teams Snag Grinder Relationship Specialty Start Date End Date Jovon Sifuentes MD [address] [place] [address] PCP - General 09/30/10 09/10/21 documented as of this encounter
--- OUTSIDE RECORDS SUMMARY | 2024-08-28 12:55 | XMS_ITS | Encounter Summary ---
Author Organization [facility] [place] [address] Care Team Providers Care Acid Recovery Operator Name Role Phone Jovon Sifuentes MD Primary Care Provider [phone] Reason for Visit * Auth/Cert Specialty Diagnoses [...] Expiration Date Visits Re quested Visits Authorized [id number] 1 1 Encounter Details Date Type Department Care Team (Late st Contact Info) Description 07/16/2017 12:05 PM EDT Anesthesia Event [place] [address] Brock Tang MD [facility] [place] [address] Biju Blue MD [facility] [place] [address] Anesthesia Record Procedure Summary Procedure Name Responsible [...] 0836; metacarpal vein (top of hand), right; gquq-uyb-cyyhks catheter system; 20 gauge, 1 in length; [...] Time: 1034 07/13/17 0815 by Karla Chavarria, LISSETTE 07/17/17 1034 by Miguelina Punete RT Arterial Line 07/13/17; 0842; radi al artery, right; 20 gauge; Karla Chavarria CRNA; Sterile Prep, Sterile Gloves; catheter not patent, catheter intact; 07/18/17; 201407/13/17 0842 by Karla Chavarria CRNA 07/18/172014 by Arely Iqbal, RN (RETIRED) Peripheral IV Line - Single Lumen 07/13/17; 0850; median vein (underside of arm), left; mezy-zit-lkhaaf catheter system; 18 gauge; Beau; removed inadvertently, catheter/device intact; 07/20/17; 0200 07/13/17 0850 by Karla Chavarria, TELETYPESETTER 07/20/17 0200 by Shannon Toribio RN NG/OG [...] Tang MD - 07/16/2017 12:47 PM EDT [facility] Department of Anesthesiology Post-procedure Note Patient: Jose Bee Procedure Summary Date Anesthesia Start Anesthesia Stop Room / Location 07/16/17 1205 1235 [facility] OR 04 / [facility] MAIN OR Procedure Diagnosis Surgeon Responsible Provider LARYNGOSCOPY, WITH MICROSCOPE (WRVU 2.57) (N/A Throat) (Intubation) Sriram Contreras MD Pouliot, Ryan C, MD All Anesthesia Providers: Anesthesiologist: Brock Tang MD TELETYPESETTER: Karla Chavarria CRNA Last (1hr) Vitals: BP [...] fibrillation March 2017: noted in ED in [facility]. Previously noted to be paroxysmal. No [...] Date ??? ACHILLES TENDON SURGERY Right 1996 [facility] ??? KNEE ARTHROSCOPY christelle. [facility] ??? PRO BIOPSY OROPHARYNX N/A 05/24/2017 BIOPSY, OROPHARYNX (WRVU 1.44) performed by Zafar Madera MD at [facility] MAIN OR ??? PRO LARYNGOSCOPY, DIRCT, OP SCOPE, BIOPSY N/A 05/24/2017 LARYNGOSCOPY, MICROSCOPE, WITH BIOPSY (WRVU 3.55) performed by Zafar Madera MD at [facility] MAIN OR ??? QUADRACEPS TENDON REPAIR Right 04/2016 [facility] ??? TONSILLECTOMY Social History Substance [...] discussed with spouse. Plan discussed with resident, TELETYPESETTER and attending. PAT Staff Note documented in this encounter Plan of Treatment Upcoming Encounters Date Type Department Care Team (Late st Contact Info) Description 09/18/2024 10:20 AM EST Office [place] [address] Sriram Contreras MD [facility] [place] [address] 10/31/2024 1:30 PM EST Office Visit Hematology/Oncology at [address] [phone] Dmitry Bhatti MD [facility] [place] [address] Ellen Mcrae APRN [facility] [place] [address] 10/31/2024 2:00 PM EST Infusion Hematology Oncology at [address] [phone] documented as of this encounter [...] mcg documented in this encounter Care Teams Acid Recovery Operator Relationship Specialty Start Date End Date Jovon Sifuentes MD [address] [place] [address] PCP - General 09/30/10 09/10/21 documented as of this encounter
--- OUTSIDE RECORDS SUMMARY | 2024-08-28 12:55 | XMS_ITS | Encounter Summary ---
Author Organization [facility] [place] [address] Care Team Providers Care Coding Clerks Supervisor Name Role Phone Jovon Sifuentes MD Primary Care Provider [phone] Reason for Visit * Auth/Cert Specialty Diagnoses [...] Expiration Date Visits Re quested Visits Authorized [id number] 1 1 Encounter Details Date Type Department Care Team (Late st Contact Info) Description 07/16/2017 10:58 AM EDT - 07/16/2017 1:17 PM EDT [place] [phone] Sriram Contreras MD [facility] [place] [address] LARYNGOSCOPY, WITH MICROSCOPE (WRVU 2.57) Social History [...] staging exam TECHNIQUE: Following IV injection of 67-mfkipd-9-deoxyglucose (FDG) a standard uptake of approximately 60 [...] Thank you for referring this patient to [facility]. I have personally reviewed the [...] -You can reach the ENT clinic at [phone] for appointment questions. -The ENT triage nurse is available at [phone] -For urgent issues during evenings and weekends the ENT resident asset protection professional can be reached through [facility] press operator at [phone] Follow Up: You will need to follow [...] Geovanna Deleon MD Hematology and Oncology at [place] [phone] General Instructions None __ Primary Care Doctor: Jovon Sifuentes MD [phone] Signed: Celso Mejía MD 07/29/2017 documented in [...] -You can reach the ENT clinic at [phone] for appointment questions. -The ENT triage nurse is available at [phone] -For urgent issues during evenings and weekends the ENT resident asset protection professional can be reached through [facility] press operator at [phone] Follow Up: You will need to follow [...] Geovanna Deleon MD Hematology and Oncology at [place] [phone] documented in this encounter Medications at Time [...] att. providers found Jose Bee discharged to [facility] by private car with Spouse. All belongings sent with patient. DONNA removed, incision healing well, no significant drainage, no dehiscence, no significant erythema, skin free from pressure ulcers. Discharge instructions given to . Report called to Vidhi at [facility] @ 1340. * Alexus Soler RN - 07/29/2017 11:38 AM EDT Patient accepts bed at [facility]. Spoke with Patient and in regards to transportation. will provide transportation to [facility]. Adrienne Soler RN Care Management * Lexy Scott - 07/29/2017 10:57 AM EDT Office of Care Management/Filament Maker Patient Name: Jose Bee : 1950 Patient has been offered a [facility] Facility bed at [facility]. The patient will be transported by private transportation. No MD to MD report necessary Please call Nursing Report to , ask for Vidhi. Info to accompany patient: Narcotic Prescriptions Copies of Medication Administration Records and IV sheets for past 10 days. Plan: Filament Maker will be available to the patient and Database Programmer-RN and/or Social Workerfor further assistance. Patient will be discharged to: [facility] [address] [place] [address] Melany Rodrigues * Luana Henry RN - 07/29/2017 7:00 AM EDT Patient arrived via bed to rm 514, oob sitting in chair. Aox4, calling . Denies pain. Plan for discharge today pending bed. 1 assist to bathroom. Voids with out difficulty. [place] to floor and call srinivasan system. Would like to take a shower and have his CPAP cleaned. Will report to oncoming RN/CONCEPCION. * Kayley Chris RCP - 07/29/2017 4:40 AM EDT Patient was compliant with home CPAP usage tonight. * Anay Diallo RN - 07/28/2017 3:40 PM EDT Database Programmer Follow Up Note Patient plan of care discussed in multidisciplinary rounds. Met with patient and to assess continuing care and discharge needs. Continues to require hospitalization for Head and neck cancer. Discharge plan to snf when medically ready. Database Programmer to follow with team and family to assist with discharge needs when patient ready for discharge. Anay Diallo RN Case Management for [facility] pgr [phone] * Celso Mejía MD - [...] Mejía MD, PGY1 07/28/17 7:05 AM Pager: [phone] * Anay Diallo RN - 07/27/2017 2:44 PM EDT Based on discussions with the multi-disciplinary healthcare team, the patient would benefit from skilled level of care at discharge. ?? I have met with the patient/clearance representative to discuss discharge planning needs. I have provided the [facility], Office of Care Management letter from the Scenic Artist pertaining to rehab referrals. I have also provided a letter describing our affiliations within the [facility] and educated them about their right to choose where referrals are placed. ?? I reviewed the different levels of rehab including SNF, swing, acute and LTAC with the patient/clearance representative. ?? The patient/clearance representative has been provided a list of facilities within their preferred geographic area. ?? I have requested that the patient/clearance representative provide at least three choices for referral. ?? The patient/clearance representative have requested referrals to: 1. [facility] ?? PHONE: [phone] FAX: [phone].. 2. [facility] [address] [place] [address] ?? 3. [facility] ([facility]) [address] [place] [phone] ? Expected date of discharge: TBD Note routed to Filament Maker who will communicate referrals to facilities and [...] Mejía MD, PGY1 07/27/17 7:01 AM Pager: [phone] * Collette Schultz - 07/26/2017 8:21 PM EDT Client Services Associate Encounter Note Patient Name: Jose Bee : [id number] MR#: [id number] Admit Date: 07/13/2017 6:04 AM Hospital Day 13 days Narrative: Attempted return visit - pt sleeping. Time in Direct Care: 0 min. Collette Schultz 07/26/2017 * Collette Schultz - 07/26/2017 3:00 PM EDT Client Services Associate Encounter Note Patient Name: Jose Bee : [id number] MR#: [id number] Admit Date: 07/13/2017 6:04 AM Hospital Day 13 days Narrative: Human Capital Manager visit per Consult Order Assessment: Pt [...] Time in Direct Care: 15 min. Collette Storm Sejanneth 07/26/2017 * Anay Diallo RN - 07/26/2017 2:30 PM EDT Database Programmer Follow Up Note Patient plan of care discussed in multidisciplinary rounds. Met with patient to assess continuing care and discharge needs. Continues to require hospitalization for Head and neck cancer. Discharge plan uncertain at this time. Database Programmer to follow with team and family to assist with discharge needs when patient ready for discharge. Anay Diallo RN Case Management for [facility] pgr [phone] * Briana Goel RN - 07/26/2017 2:29 PM EDT [facility] Interventional Radiology ? Interventional Radiology Nursing [...] patient's provider, ENT Service Dr. Jackie Mejía #[phone] , regarding above. Paged, callback # provided [...] Overview: March 2017: noted in ED in [facility]. Previously noted to be paroxysmal. No awareness. CHADS2-VASc=1 (age). Started on apixaban for PE Acute respiratory failure Overview: Worsening oxygenation. KORI on CPAP Adult BMI 30+ Estimated body mass index is 38.74 kg/(m^2) as calculated from the following: Height as of this encounter: 191.8 cm (6' 3.51). Weight as of this encounter: 142.5 kg (314 lb 2.5 oz). Admit Wt: 133.36 kg [place]wood body weight: 90.4 kg Type of access: [...] vitamins and minerals. Assessment: Estimated Nutrition Needs: 2434-2821 calories (20-25 kcal/kg IBW) 135-160 grams protein (1.5-2.0 g/kg IBW) Patient is out of the ICU and out on the floor. Tube feedings need adjustment as pt is no longer onpropofol. Appears tube feedings are still medically indicated given pt is s/p swallow eval and MANAGER DELIVERY recommends continuation of dobhoff TF for now. [...] Mejía MD, PGY1 07/26/17 9:01 AM Pager: [phone] * Calista Peralta RT - 07/26/2017 12:27 [...] 7.44 7.41 7.42 PO2ART 67* 60* 78* [id number] 39 37 39 BEART 1.2 -2.0 0.3 [...] 7.44 7.41 7.42 PO2ART 67* 60* 78* [id number] 39 37 39 BEART 1.2 -2.0 0.3 [...] 8 Days Post-Op Patient ID/Reason for Admission Joes Bee is a 66 y.o. male presented [...] Output Intake/Output Summary (Last 24 hours) at 07/24/17926 Last data filed at 07/24/17 0813 Gross [...] Needs TBD; Follow-up ENT with Dr. Contreras TBIssac __ IGNACIO P MD KLAUS 07/24/17 9:27 AM Associated attestation - Samm Payne MD - 07/25/2017 6:54 AM EDT Otolaryngology Attending Physician Addendum Patient discussed at length and in detail with Dr. Regan. I have reviewed, and agree with, the clinical history, physical examination findings, impression, and plan, as detailed in resident physician's note. Samm Payne MD, FAAP Pediatric Otolaryngology [facility] ([facility] * Beena Saini RCP - 07/24/2017 [...] 07/23/2017 3:50 PM EDT Office of Care Management(OCM)/Database Programmer(CM) Service: ENT Pt remains intubated at this [...] get appropriate choices after recs are made. Database Programmer Roc Valdez RN, BSN Pager #[phone] * Sony Oliva MD - 07/23/2017 11:31 [...] 07/23/2017 No results found for: PHART, PO2ART, [id number] ASSESSMENT, MANAGEMENT, and DECISION MAKING: potential for [...] LEAST ONE OF THESE DX to USE 10383 ARDS Stupor Hypoxemic Resp Failure (Fi02>50%) Delirium [...] LEAST ONE OF THESE DX to USE 24874 ARDS Stupor Hypoxemic Resp Failure (Fi02>50%) Delirium [...] to reach the patient's provider, Red 1 4877, regarding above. Monitor weight. Jose Bee is [...] LEAST ONE OF THESE DX to USE 48414 ARDS Stupor Hypoxemic Resp Failure (Fi02>50%) Delirium [...] PGY2 07/20/17 7:21 AM * Kaiden Gorman, [facility] - 07/20/2017 4:35 AM EDT AMV [...] LEAST ONE OF THESE DX to USE 05803 ARDS Stupor Hypoxemic Resp Failure (Fi02>50%) Delirium [...] titrate FiO2 as tolerated and monitor. Miguelina Punete, RT <> 07/18/2017 <> 3:11 PM * [...] interval not displayed. CBC Recent Labs 07/18/17 0220 07/17/17 0030 07/16/17 0400 07/15/17 0415 07/14/17 [...] plan. Lakeshia Mckeon MD * Jeannie Jewell, [facility] - 07/17/2017 7:24 PM EDT 07/17/17 1923 [...] with acetaminophen SHIRA, oxycodone PRN Cardiovascular: Metoprolol SHIAR for BP Pulmonary: Extubated this AM. Still [...] Jr, MD, PGY2 07/17/17 8:21 PM Pager: [phone] (For daytime 6AM - 6PM) Please contact on-call night ENT equine intern for issues between 6PM - 6AM [...] the need arise fora surgical airway. - [facility] vent protocol - HOB 30 degrees ?? [...] tomorrowfor extubation. Continue to monitor. * Namita Hoffmann RD - 07/16/2017 4:26 PM EDT Nutrition [...] kg (294 lb). Admit Weight: 133.36 kg [place] Body Weight: 90.3 kg I/O last 1 [...] service. Nutrition to follow. * Lillian Pardo, MANAGER DELIVERY - 07/16/2017 1:48 PM EDT Speech-Language Pathology Initial Consult ?? Order received and acknowledged. Records reviewed and pt and RN contacted. Pt remains intubated at this time. Assessment deferred at this time. Please re- consult after pt successfully extubated. ?? Lillian Pardo MA CCC-MANAGER DELIVERY Inpatient Rehabilitation Medicine pager:# [phone] * Salazar Bhagat MD - 07/16/2017 11:57 [...] need arise for a surgical airway. - [facility] vent protocol - HOB 30 degrees ?? [...] Martino MD, PGY1 07/16/17 9:12 AM Pager: [phone] (For daytime 6AM - 6PM) Please contact on-call night ENT equine intern for issues between 6PM - 6AM * Supa Sharif, [facility] - 07/15/2017 8:15 PM EDT AMV [...] need arise for a surgical airway. - [facility] vent protocol - Dexamethasone x3 doses - [...] Martino MD, PGY1 07/15/17 7:06 AM Pager: [phone] (For daytime 6AM - 6PM) Please contact on-call night ENT equine intern for issues between 6PM - 6AM * Supa Sharif, [facility] - 07/14/2017 9:40 PM EDT AMV [...] ?? Pulm: nasally intubated, difficult airway - [facility] vent protocol - Dexamethasone x3 doses for [...] MD 07/14/2017 6:47 PM * Adam Montana, [facility] - 07/14/2017 2:03 PM EDT AMV [...] Martino MD, PGY1 07/14/17 9:38 AM Pager: [phone] (For daytime 6AM - 6PM) Please contact on-call night ENT equine intern for issues between 6PM - 6AM [...] of this encounter: 133.4 kg (294 lb). [place]wood Body Weight: 90.3 kg I/O last 1 [...] service. Nutrition to follow. * Cecilia Doll, PAPERBOARD BOXES ESTIMATOR - 07/14/2017 5:36 AM EDT Mechanical Ventilation Note Vent Settings: Pressure Support 5 PEEP 5 FIO2 0.4 ETT: Left Nare placed at: 28 cm at the nare Changes made this shift: transitioned to pressure support 5 PEEP 5 FIO2 0.4 SBT Protocol: Yes Pass SBT: Yes AMV Protocol: Yes Assessment: ETT secured via suture. Of note, the pilot boat operator balloon line is wrapped up in the [...] Date ??? ACHILLES TENDON SURGERY Right 1996 [facility] ??? KNEE ARTHROSCOPY christelle. [facility] ??? PRO BIOPSY OROPHARYNX N/A 05/24/2017 BIOPSY, OROPHARYNX (WRVU 1.44) performed by Zafar Madera MD at [facility] OR ??? PRO LARYNGOSCOPY, DIRCT, OP SCOPE, BIOPSY N/A 05/24/2017 LARYNGOSCOPY, MICROSCOPE, WITH BIOPSY (WRVU 3.55) performed by Zafar Madera MD at [facility] OR ??? QUADRACEPS TENDON REPAIR Right 04/2016 [facility] ??? TONSILLECTOMY Allergies: Allergies Allergen [...] education: 17 Occupational History ??? 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 He is to Briana for 40 yrs. 4 children - All live in different states - [place] Enjoys raising Beef Cattle and doing Civil War and Living History and shoot Black powder/Antique firearms. He enjoys builiding Firearms/Blacksmithing - [place], [place], etc. Review of Systems: Not obtained due [...] - currently stable Pulm: nasally intubated - [facility] vent protocol GI: DHT - Diet: NPO [...] this case performed under IRB Protocol Study [id number] (Improving throat cancer surgical outcomes through intra-operative [...] to the planned procedure. Hand Hygiene: The lithographic plate maker apprentice did perform hand hygiene prior to arterial [...] hypoxic respiratory failure Location of Procedure: ICU [facility]. Risks and Benefits: The risks and [...] RECOMMENDATIONS: ?? Continue dysphagia soft diet and [place]-thick liquids. ?? Upright to feed. ?? Small bites/sips. ?? Medications crushed in applesauce. Sriram Thompson MS [facility]-MANAGER DELIVERY Speech-Language Pathologist Rehabilitation Medicine Pager - [phone] Problem: Acute Rehab Services Goal & Intervention [...] met * Plan of Care - Abeba Poretr RN - 07/29/2017 12:18 AM EDT Problem: [...] Anticipated Discharge Disposition: inpatient rehabilitation facility Pager: [phone] OTONIEL JOSHUA OT 07/28/2017 Occupational Therapy Rehabilitation [...] * Plan of Care - Sriram Thompson, MANAGER DELIVERY - 07/28/2017 2:18 PM EDT Problem: Patient [...] documentation. RECOMMENDATIONS: ?? Dysphagia soft diet and [place]-thick liquids. ?? Upright to feed. ?? Small bites / sips. ?? Crush medications in applesauce when possible. Sriram Thompson, MS [facility]-MANAGER DELIVERY Speech-Language Pathologist Rehabilitation Medicine Pager - [phone] Problem: Acute Rehab Services Goal & Intervention [...] PO intake. Awaiting plan for D/C [facility] facility. INDIVIDUALIZED FALL PREVENTION INTERVENTIONS: Patient-specific fall [...] Anticipated Discharge Disposition: inpatient rehabilitation facility Pager: [phone] CRISTIAN NELSON, PT 07/27/2017 Physical Therapy Rehabilitation [...] sit/sit to supine -- Bed Mobility Goal, [place]in Level independent -- Bed Mobility Goal, Outcome Achieved -- goal ongoing Goal: Gait Training Goal Stand Alone Therapy Goal Outcome: Ongoing (Interventions Implemented as Appropriate) 07/26/17 1329 07/27/17 1230 Gait Training Goal Gait Training Goal, Date Established 07/26/17 -- Gait Training Goal, Time to Achieve 30 days -- Gait Training Goal, Pepin Level supervision required -- Gait Training Goal, [...] days -- Transfer Training Goal, Activity Type ist-sx-tunqo/vvqsb-qe-wur;ysd-tk-qnbde/xwuik-sp-kev -- Transfer Train Goal, [place]in Level supervision required -- Transfer Training Goal, Assist Device walker, rolling -- Transfer Training Goal, Outcome -- goal ongoing * Plan of Care - Sriram Thompson, MANAGER DELIVERY - 07/27/2017 10:59 AM EDT Problem: Patient [...] Crush medications in applesauce. Sriram Thompson MS [facility]-MANAGER DELIVERY Speech-Language Pathologist Rehabilitation Medicine Pager - [phone] Problem: Acute Rehab Services Goal & Intervention [...] PLAN MOVING FORWARD: -PEG tube. -IV abx -MANAGER DELIVERY consult. -hep gtt. INDIVIDUALIZED FALL PREVENTION INTERVENTIONS: [...] Pt appeared anxious and frustrated this morning. Human Capital Manager consulted and talked with patient today. [facility] it was determinedthat tube feeding was leaking [...] Anticipated Discharge Disposition: inpatient rehabilitation facility Pager: [phone] OTONIEL JOSHUA OT 07/26/2017 Occupational Therapy Rehabilitation [...] Anticipated Discharge Disposition: inpatient rehabilitation facility Pager: [phone] CRISTIAN NELSON, DANY 07/26/2017 Physical Therapy Rehabilitation [...] to sit/sit to supine Bed Mobility Goal, Pepin Level independent Goal: Gait Training Goal Stand Alone Therapy Goal Outcome: Ongoing (Interventions Implemented as Appropriate) 07/26/17 1329 Gait Training Goal Gait Training Goal, Date Established 07/26/17 Gait Training Goal, Time to Achieve 30 days Gait Training Goal, Pepin Level supervision required Gait Training Goal, Assist [...] 30 days Transfer Training Goal, Activity Type cyw-fe-lrvuw/awnmz-hz-mzw;bay-lo-ckuga/nojrp-sy-fow Transfer Train Goal, Pepin Level supervision required Transfer Training Goal, Assist Device walker, rolling * Consult Note - Deanna Menjivar MD - 07/26/2017 11:08 AM EDT INITIAL HEME/ ONC CONSULT DATE OF CONSULT 07/26/2017 PATIENT Jose Bee 1950 REFERRING PHYSICIAN PAYDARFAR, SRIRAM A CONSULTATION QUESTION Recommendations for anticoagulation leaving the hospital HISTORY PRESENT ILLNESS This patient is a 66 y.o. male with a relevant past medical history significant for oropharyngeal cancer, malignancy associated VTE and Afib (CHADS-VASc of 1) who presented to [facility] for radical neck dissection on 07/13/17. We [...] Date ??? ACHILLES TENDON SURGERY Right 1996 [facility] ??? KNEE ARTHROSCOPY christelle. [facility] ??? PRO BIOPSY OROPHARYNX N/A 05/24/2017 BIOPSY, OROPHARYNX (WRVU 1.44) performed by Zafar Madera MD at [facility] OR ??? PRO LARYNGOSCOPY, DIRCT, OP SCOPE, BIOPSY N/A 05/24/2017 LARYNGOSCOPY, MICROSCOPE, WITH BIOPSY (WRVU 3.55) performed by Zafar Madera MD at [facility] OR ??? PRO LARYNGOSCOPY, DIRECT, DX, OP MICROSCOP N/A 07/16/2017 LARYNGOSCOPY, WITH MICROSCOPE (WRVU 2.57) performed by Sriram Contreras MD at [facility] OR ??? PRO PART EXC TONGUE, UNILAT RAD NECK Right 07/13/2017 @GLOSSECTOMY, PARTIAL,WITH UNILATERAL RADICAL NECK DISSECTION (WRVU 30.14) performed by Sriram Contreras MD at [facility] ??? PRO PARTIAL REMOVAL OF PHARYNX N/A 07/13/2017 PHARYNGECTOMY, LIMITED (WRVU 19.13) performed by Sriram Contreras MD at [facility] ??? PRO UNLISTED PROCEDURE LARYNX N/A 07/13/2017 LARYNGOSCOPY, MICRO, LASER EXCISION (WRVU 12.14) performed by Sriram Contreras MD at [facility] ??? QUADRACEPS TENDON REPAIR Right 04/2016 [facility] ??? TONSILLECTOMY FAMILY HISTORY No family history on file. No family history of VTE SOCIAL HISTORY Social History Social History ??? Marital status: Spouse name: Briana ??? Number of children: 4 ??? 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 He is to Briana for 40 yrs. 4 children - All live in different states - One Kathleen Enjoys raising Beef Cattle and doing Civil War and Living History and shoot Black powder/Antique firearms. He enjoys builiding Firearms/Blacksmithing - [place]coal, [place], etc. PHYSICAL EXAMINATION Most Recent Vitals: 07/26/17 [...] and thrombosis clinic Felice Harvey MD Pager [phone] Heme-Onc Fellow ?? HEMATOLOGY STAFF ADDENDUM I [...] Deanna Menjivar MD Hematology Staff physician, Pager: [phone] 07/26/17 * Plan of Care - Sriram Thompson, MANAGER DELIVERY - 07/26/2017 9:33 AM EDT Problem: Patient [...] degrees at all times. Sriram Thompson MS [facility]-MANAGER DELIVERY Speech-Language Pathologist Rehabilitation Medicine Pager - [phone] Problem: Acute Rehab Services Goal & Intervention [...] Bee was transferred from the ICU to [facility] at approximately 1430 on 07/25/17. At [...] per order. PLAN MOVING FORWARD: Transfer to [facility] INDIVIDUALIZED FALL PREVENTION INTERVENTIONS: Patient-specific fall risk [...] am. PLAN MOVING FORWARD: Extubate, transfer to [facility] when able INDIVIDUALIZED FALL PREVENTION INTERVENTIONS: Patient-specific [...] Overview Goal: Plan of Care Review 07/23/17 7329 Coping/Psychosocial Plan Of Care Reviewed With patient [...] Outcome: Ongoing (Interventions Implemented as Appropriate) 07/15/17 9524 Skin Integrity Impairment, Risk/Actual Skin Integrity Impairment, [...] MOVING FORWARD: Extubate this am, transfer to [facility] when able INDIVIDUALIZED FALL PREVENTION INTERVENTIONS: Patient-specific [...] RN or CONCEPCION Surveillance [continuous indirect monitoring]: [place] ICU monitor Patient-specific fall prevention interventions for [...] Contreras MD - 07/16/2017 12:27 PM EDT [facility] Operative Note Patient Name: Jose Bee : [id number] MR#: [id number] Case Date: 07/16/2017 Surgeon: Surgeon(s) and Role: [...] monitoring required during toileting and ADLs]: RN, CLERICAL AND ADMINISTRATIVE WORKERS and RT Surveillance [continuous indirect monitoring]: Monitor [...] Contreras MD - 07/15/2017 4:58 PM EDT [facility] Operative Note Patient Name: Jose Bee : [id number] MR#: [id number] Case Date: 07/13/2017 Surgeon: Surgeon(s) and Role: * Sriram Contreras MD - Primary * Selvin Kaye MD - Resident-Planning Coordinator * Hilton Cheney PA - Physician Automatic Clipper And Stripper Preoperative diagnosis: Right tongue base cancer Postoperative [...] completed, we then registered the patient using [employer] electromagnetic registration to the intraoperative imaging that [...] Vicryl suture. Once this was completed, two 15-Vincentian Robin drains were placed in the neck, [...] Bee would be surrogate decision maker per [place] surrogate decision making law. Any patient receiving care at [facility] must abide by [place] law. The hierarchy for surrogate decision making [...] (i) The agent with financial power of commonwealth attorney or a conservator appointed in accordance [...] Insurance: MEDICARE A & B Secondary Insurance: [employer] [facility] Prescription Coverage: yes. Preferred Pharmacy: [facility] in [place], [place]. Other: none. Primary Care Provider: Jovon Sifuentes MD [phone] Patient/Caregiver Goals of Treatment: plan being determined at this time. Likely home health at [place]. Potential Needs for Transition of Care: Rehab/SNF: tbd. Home Health: tbd. DME: none previously required. Dialysis: N/A Community Resources: none. Transportation: spouse will provide. Other: none. Anticipated Barriers to Discharge/Special Considerations: no barriers identified at this time. Plan: a member of the Care Management team will continue to monitor progress, follow for continuityof care and assist with transition of care planning. Database Programmer Roc Valdez RN, BSN Pager #[phone] documented in this encounter Plan of Treatment Upcoming Encounters Date Type Department Care Team (Late st Contact Info) Description 09/18/2024 10:20 AM EST Office [place] [phone] Sriram Contreras MD [facility] [place] [address] 10/31/2024 1:30 PM EST Office Visit Hematology/Oncology at [address] [phone] Dmitry Bhatti MD [facility] HEMATOLOGY [place] [address] Ellen Mcrae APRN [facility] [place] [address] 10/31/2024 2:00 PM EST Infusion Hematology Oncology at [address] [phone] documented as of this encounter Procedures Procedure Name Priority Date/Time Associated Diagnosis Comments COMMUNICATION TECHNICIAN SCAN 07/30/2017 12:00 AM EDT HEMOGRAM Routine [...] Routine 07/17/2017 10:34 AM EDT CARDIAC ENZYMES ([facility]) STAT 07/17/2017 5:42 AM EDT HEMOGRAM Routine 07/17/2017 12:30 AM EDT DIFFERENTIAL, AUTOMATED Routine 07/17/2017 12:30 AM EDT CARDIAC ENZYMES ([facility]) STAT 07/17/2017 12:30 AM EDT CBC (WITH DIFF) Routine 07/17/2017 12:30 AM EDT BASIC METABOLIC PANEL Routine 07/17/2017 12:30 AM EDT ENDOTRACHEAL TUBE POSITION CHANGE STAT 07/16/2017 5:51 PM EDT XR CHEST ONE VIEW STAT 07/16/2017 5:2 4 PM EDT CARDIAC ENZYMES ([facility]) STAT 07/16/2017 5:10 PM EDT EKG 12-LEAD [...] ARTERIAL POC Routine 07/13/2017 10:35 AM EDT ABORH RECHECK STATUS STAT 07/13/2017 6:27 AM EDT TYPE AND SCREEN, SDP (FUTURE SURGERY, [facility] SAME DAY PROGRAM ONLY) STAT 07/13/2017 6:27 AM EDT ABO/RH TYPING STAT 07/13/2017 6:27 AM EDT ANTIBODY SCREEN STAT 07/13/2017 6:27 AM EDT documented in this encounter Results * SCAN DOC: COMMUNICATION TECHNICIAN (07/30/2017 12:00 AM EDT) Anatomical Region Laterality Modality Other Narrative 07/30/2017 12:00 AM EDT Ordered by an unspecified provider. Scanning Provider MEDIA MGR SCAN EXT O RDR/RSLT * (ABNORMAL) Differential, Automated (07/29/2017 3:41 AM EDT) Neutrophil % 59.9 % [facility] Neutrophil Absolute 4.48 1.70 - 6.10 x10(3)/mc L [facility] Lymph % 26.0 % [facility] Lymphocytes Abs 2.0 0.9 - 3.2 x10(3)/mc L [facility] Monocyte % 10.0 % [facility] Monocyte Abs 0.8 0.3 - 0.9 x10(3)/mc L [facility] Eos % 2.1 % [facility] Eosinophils Abs 0.2 0.0 - 0.4 x10(3)/mc L [facility] Basophil % 0.7 % [facility] Baso Absolute 0.0 0.0 - 0.1 x10(3)/mc L [facility] Immature Gran % 1.30 % [facility] Comment: Immature granulocytes(IG's)percentage and absolute count will include metamyelocytes, myelocytes, and promyelocytes. Blood smears from CBCs yielding IG's will be scanned manually for concordance. If this scan disagrees with the automated IG or if promyelocytes are noted, a manual differential will be performed. Immature Gran Absolute 0.10(H) 0.00 - 0.04 x10(3)/ L [facility] Blood specimen (specimen) 07/29/2017 3:41 AM EDT 07/29/2017 3:58 AM EDT Narrative Resulting Agency Comment Spec In Lab Sriram Contreras MD HEMATOLOGY ORDERAB LES [facility] [place] [address] * (ABNORMAL) Hemogram (07/29/2017 3:41 AM EDT) White Blood Cell 7.5 4.0 - 9.5 x10(3)/ L [facility] Red Blood Cell 4.14(L) 4.58 - 5.54 x10(6)/ L [facility] Hemoglobin 12.7(L) 13.7 - 16.5 gm/dL [facility] Hematocrit 38.1(L) 40.5 - 48.5 % [facility] Mean Cell Volume 92.0 82.9 - 93.1 fL [facility] Mean Cell Hemoglobin 30.7 27.5 - 32.1 pg [facility] Mean Cell Hemoglobin Concentration 33.3 32.0 - 35.7 gm/dL [facility] Platelet 281 145 - 357 x10(3)/ L [facility] RDW Standard Deviation 46.4(H) 36.0 - 45.0 fL [facility] RDW coefficient of variation 13.9(H) 11.4 - 13.8 % [facility] Mean Platelet Volume 9.9 7.6 - 12.9 fL [facility] NRBC% auto 0.0 % [facility] NRBC Absolute 0.000 0.000 - 0.000 x10(3)/mc L [facility] Blood specimen (specimen) 07/29/2017 3:41 AM EDT 07/29/2017 3:58 AM EDT Narrative Resulting Agency Comment Spec In Lab Sriram Contreras MD HEMATOLOGY ORDERAB LES [facility] [place] [address] * Basic Metabolic Panel (non-fasting) (07/29/2017 3:41 AM EDT) Glucose 95 65 - 199 mg/dL [facility] Comment:Diabetes: >=200 mg/d L plus symptoms Blood Urea Nitrogen 16 10 - 20 mg/dL [facility] Creatinine 0.95 0.80 - 1.50 mg/dL [facility] Comment: Please note that the pediatric reference intervals supplied above were not validated at [facility]. Results from pediatric patients should be interpreted in conjunction to the patient's age, height and muscle mass. Sodium 139 135 - 145 mmol/L [facility] Potassium 3.9 3.5 - 5.0 mmol/L [facility] Comment: Please note: ??Patients with WBC >100,000 may have falsely elevated Potassium levels. ??For accurate Potassium quantification in these patients send serum separator tube (gold top) for subsequent determinations. ??Contact the Clinical Chemistry Laboratory if there are any questions. Chloride 102 98 - 107 mmol/L [facility] Carbon Dioxide 24 22 - 31 mmol/L [facility] Anion Gap 13 5 - 15 mmol/L [facility] Calcium 8.9 8.5 - 10.5 mg/dL [facility] Est Glomerular Filtration Rate >60 >=60 [facility] Comment: [...] the following links into your internet browser. [email or web address] Blood specimen (specimen) 07/29/2017 3:41 AM EDT 07/29/2017 3:58 AM EDT Narrative Resulting Agency Comment Spec In Lab Sriram Contreras MD CHEMISTRY ORDERABL ES Performing Organization Address [facility] Phone Number [facility] [place] [address] * POCT Glucose (07/28/2017 11:53 AM EDT) Glucose, POC 107 65 - 199 mg/dL [facility] Comment: Supplemental ranges: <140 mg/dL before meals <180 mg/dL all other times of the day Blood specimen (specimen) 07/28/2017 11:53 AM EDT 07/28/2017 11:53 AM EDT Sriram Contreras MD POINT OF CARE TEST ORDERABLES Performing Organization Address [facility] de Phone Number [facility] [place] [address] * POCT Glucose (07/28/2017 7:52 AM EDT) Glucose, POC 97 65 - 199 mg/dL [facility] Comment: Supplemental ranges: <140 mg/dL before meals <180 mg/dL all other times of the day Blood specimen (specimen) 07/28/2017 7:52 AM EDT 07/28/2017 7:52 AM EDT Sriram Contreras MD POINT OF CARE TEST ORDERABLES Performing Organization Address [facility]/ZIP Co de Phone Number [facility] [place] [address] * POCT Glucose (07/28/2017 4:27 AM EDT) Glucose, POC 98 65 - 199 mg/dL [facility] Comment: Supplemental ranges: <140 mg/dL before meals <180 mg/dL all other times of the day Blood specimen (specimen) 07/28/2017 4:27 AM EDT 07/28/2017 4:27 AM EDT Sriram Contreras MD POINT OF CARE TEST ORDERABLES Performing Organization Address [facility] Co de Phone Number [facility] [place] [address] * Phosphorus (07/28/2017 3:47 AM EDT) Phosphorus 3.7 2.5 - 4.5 mg/dL [facility] Blood specimen (specimen) 07/28/2017 3:47 AM EDT 07/28/2017 6:16 AM EDT Narrative Resulting Agency Comment Spec In Lab Sriram Contreras MD CHEMISTRY ORDERABL ES Performing Organization Address [facility] de Phone Number [facility] [place] [address] * Magnesium (07/28/2017 3:47 AM EDT) Magnesium 0.86 0.69 - 1.07 mmol/L [facility] Blood specimen (specimen) 07/28/2017 3:47 AM EDT 07/28/2017 6:16 AM EDT Narrative Resulting Agency Comment Spec In Lab Sriram Contreras MD CHEMISTRY ORDERABL ES Performing Organization Address [facility] Co de Phone Number [facility] [place] [address] * (ABNORMAL) Differential, Automated (07/28/2017 3:47 AM EDT) Neutrophil % 62.2 % [facility] Neutrophil Absolute 4.94 1.70 - 6.10 x10(3)/ L [facility] Lymph % 22.1 % [facility] Lymphocytes Abs 1.8 0.9 - 3.2 x10(3)/[facility] Monocyte % 10.6 % [facility] Monocyte Abs 0.8 0.3 - 0.9 x10(3)/[facility] Eos % 2.1 % [facility] Eosinophils Abs 0.2 0.0 - 0.4 x10(3)/[facility] Basophil % 1.1 % [facility] Baso Absolute 0.1 0.0 - 0.1 x10(3)/[facility] Immature Gran % 1.90 % [facility] Comment: Immature granulocytes(IG's)percentage and absolute count will include metamyelocytes, myelocytes, and promyelocytes. Blood smears from CBCs yielding IG's will be scanned manually for concordance. If this scan disagrees with the automated IG or if promyelocytes are noted, a manual differential will be performed. Immature Gran Absolute 0.15(H) 0.00 - 0.04 x10(3)/ L [facility] Blood specimen (specimen) 07/28/2017 3:47 AM EDT 07/28/2017 3:58 AM EDT Narrative Resulting Agency Comment Spec In Lab Sriram Contreras MD HEMATOLOGY ORDERAB LES [facility] [place] [address] * (ABNORMAL) Hemogram (07/28/2017 3:47 AM EDT) White Blood Cell 8.0 4.0 - 9.5 x10(3)/ L [facility] Red Blood Cell 4.43(L) 4.58 - 5.54 x10(6)/mc L [facility] Hemoglobin 13.4(L) 13.7 - 16.5 gm/dL [facility] Hematocrit 40.3(L) 40.5 - 48.5 % [facility] Mean Cell Volume 91.0 82.9 - 93.1 fL [facility] Mean Cell Hemoglobin 30.2 27.5 - 32.1 pg [facility] Mean Cell Hemoglobin Concentration 33.3 32.0 - 35.7 gm/dL [facility] Platelet 271 145 - 357 x10(3)/mc L [facility] RDW Standard Deviation 45.5(H) 36.0 - 45.0 [facility] RDW coefficient of variation 13.8 11.4 - 13.8 % [facility] Mean Platelet Volume 9.9 7.6 - 12.9 [facility] NRBC% auto 0.0 % [facility] NRBC Absolute 0.000 0.000 - 0.000 x10(3)/mc L [facility] Blood specimen (specimen) 07/28/2017 3:47 AM EDT 07/28/2017 3:58 AM EDT Narrative Resulting Agency Comment Spec In Lab Sriram Contreras MD HEMATOLOGY ORDERAB LES Performing Organization Address City/State/[facility] Co de Phone Number [facility] [place] [address] * Basic Metabolic Panel (non-fasting) (07/28/2017 3:47 AM EDT) Glucose 110 65 - 199 mg/dL [facility] Comment:Diabetes: >=200 mg/d L plus symptoms Blood Urea Nitrogen 19 10 - 20 mg/dL [facility] Creatinine 0.96 0.80 - 1.50 mg/dL [facility] Comment: Please note that the pediatric reference intervals supplied above were not validated at [facility]. Results from pediatric patients should be interpreted in conjunction to the patient's age, height and muscle mass. Sodium 140 135 - 145 mmol/L [facility] Potassium 3.6 3.5 - 5.0 mmol/L [facility] Comment: Please note: ??Patients with WBC >100,000 may have falsely elevated Potassium levels. ??For accurate Potassium quantification in these patients send serum separator tube (gold top) for subsequent determinations. ??Contact the Clinical Chemistry Laboratory if there are any questions. Chloride 101 98 - 107 mmol/L [facility] Carbon Dioxide 24 22 - 31 mmol/L [facility] Anion Gap 15 5 - 15 mmol/L [facility] Calcium 8.9 8.5 - 10.5 mg/dL [facility] Est Glomerular Filtration Rate >60 >=60 [facility] Comment: [...] the following links into your internet browser. [email or web address] Blood specimen (specimen) 07/28/2017 3:47 AM EDT 07/28/2017 3:58 AM EDT Narrative Resulting Agency Comment Spec In Lab Sriram Contreras MD CHEMISTRY ORDERABL ES [facility] [place] [address] * POCT Glucose (07/27/2017 11:52 PM EDT) Glucose, POC 94 65 - 199 mg/dL [facility] Comment: Supplemental ranges: <140 mg/dL before meals <180 mg/dL all other times of the day Blood specimen (specimen) 07/27/2017 11:52 PM EDT 07/27/2017 11:52 PM EDT Sriram Contreras MD POINT OF CARE TEST ORDERABLES [facility] [place] [address] * Heparin, low molecular weight assay (07/27/2017 8:19 PM EDT) Heparin [id number] 0.67 IU/mL [facility] Comment: Guidelines for therapeutic unfractionated [...] MD HEMATOLOGY ORDERAB LES Performing Organization Address City/[facility] Co de Phone Number [facility] [place] [address] * POCT Glucose (07/27/2017 7:35 PM EDT) Glucose, POC 118 65 - 199 mg/dL [facility] Comment: Supplemental ranges: <140 mg/dL before meals <180 mg/dL all other times of the day Blood specimen (specimen) 07/27/2017 7:35 PM EDT 07/27/2017 7:35 PM EDT Sriram Contreras MD POINT OF CARE TEST ORDERABLES Performing Organization Address [facility] Co de Phone Number [facility] [place] [address] * POCT Glucose (07/27/2017 3:28 PM EDT) Glucose, POC 104 65 - 199 mg/dL [facility] Comment: Supplemental ranges: <140 mg/dL before meals <180 mg/dL all other times of the day Blood specimen (specimen) 07/27/2017 3:28 PM EDT 07/27/2017 3:28 PM EDT Sriram Contreras MD POINT OF CARE TEST ORDERABLES Performing Organization Address City/[facility] Co de Phone Number [facility] [place] [address] * POCT Glucose (07/27/2017 11:06 AM EDT) Glucose, POC 147 65 - 199 mg/dL [facility] Comment: Supplemental ranges: <140 mg/dL before meals <180 mg/dL all other times of the day Blood specimen (specimen) 07/27/2017 11:06 AM EDT 07/27/2017 11:06 AM EDT Sriram Contreras MD POINT OF CARE TEST ORDERABLES Performing Organization Address [facility] Co de Phone Number [facility] [place] [address] * POCT Glucose (07/27/2017 7:25 AM EDT) Glucose, POC 105 65 - 199 mg/dL [facility] Comment: Supplemental ranges: <140 mg/dL before meals <180 mg/dL all other times of the day Blood specimen (specimen) 07/27/2017 7:25 AM EDT 07/27/2017 7:25 AM EDT Sriram Contreras MD POINT OF CARE TEST ORDERABLES Performing Organization Address [facility] Co de Phone Number [facility] [place] [address] * Duplex Study for DVT, Bilat legs (07/27/2017 6:59 AM EDT) VB Text Report Department: Vascular Surgery Lab Patient: [id number] (BERWICKJOSE) CPT: 01518 ICD10: I26.99 Referring Physician: SRIRAM CONTRERAS ?? [...] MD VASCULAR ORDERABLE S Performing Organization Address City/[facility]/ZIP Co de Phone Number [facility] * POCT Glucose (07/27/2017 3:52 AM EDT) Glucose, POC 106 65 - 199 mg/dL [facility] Comment: Supplemental ranges: <140 mg/dL before meals <180 mg/dL all other times of the day Blood specimen (specimen) 07/27/2017 3:52 AM EDT 07/27/2017 3:52 AM EDT Sriram Contreras MD POINT OF CARE TEST ORDERABLES Performing Organization Address City/[facility]/ZIP Co de Phone Number [facility] [place] [address] * (ABNORMAL) APTT (07/27/2017 2:45 AM EDT) Partial Thromboplastin Time 92(H) 25 - 35 sec [facility] Comment: The recommended therapeutic range for full dose, unfractionated heparin at [facility] is 80 ? 114 seconds. The use of the anti-Xa (heparin) level rather than the PTT is recommended for monitoring anticoagulation intensity in critically ill patients receiving unfractionated heparin by continuous IV infusion. Blood specimen (specimen) 07/27/2017 2:45 AM EDT 07/27/2017 2:55 AM EDT Narrative Resulting Agency Comment Spec In Lab Sriram Contreras MD HEMATOLOGY ORDERAB LES Performing Organization Address [facility]/ZIP Co de Phone Number [facility] [place] [address] * (ABNORMAL) Differential, Automated (07/27/2017 2:45 AM EDT) Neutrophil % 67.8 % [facility] Neutrophil Absolute 8.40(H) 1.70 - 6.10 x10(3)/ L [facility] Lymph % 17.4 % [facility] Lymphocytes Abs 2.2 0.9 - 3.2 x10(3)/[facility] Monocyte % 9.5 % [facility] Monocyte Abs 1.2(H) 0.3 - 0.9 x10(3)/[facility] Eos % 1.4 % [facility] Eosinophils Abs 0.2 0.0 - 0.4 x10(3)/[facility] Basophil % 0.9 % [facility] Baso Absolute 0.1 0.0 - 0.1 x10(3)/[facility] Immature Gran % 3.00 % [facility] Comment: Immature granulocytes(IG's)percentage and absolute count will include metamyelocytes, myelocytes, and promyelocytes. Blood smears from CBCs yielding IG's will be scanned manually for concordance. If this scan disagrees with the automated IG or if promyelocytes are noted, a manual differential will be performed. Immature Gran Absolute 0.37(H) 0.00 - 0.04 x10(3)/ L [facility] Blood specimen (specimen) 07/27/2017 2:45 AM EDT 07/27/2017 2:55 AM EDT Narrative Resulting Agency Comment Spec In Lab Sriram Contreras MD HEMATOLOGY ORDERAB LES Performing Organization Address City/[facility]/ZIP Co de Phone Number [facility] [place] [address] * (ABNORMAL) Hemogram (07/27/2017 2:45 AM EDT) [facility] White Blood Cell 12.4(H) 4.0 - 9.5 x10(3)/[facility] Red Blood Cell 4.66 4.58 - 5.54 x10(6)/[facility] Hemoglobin 14.3 13.7 - 16.5 gm/dL [facility] Hematocrit 42.0 40.5 - 48.5 % [facility] Mean Cell Volume 90.1 82.9 - 93.1 fL [facility] Mean Cell Hemoglobin 30.7 27.5 - 32.1 pg [facility] Mean Cell Hemoglobin Concentration 34.0 32.0 - 35.7 gm/dL [facility] Platelet 288 145 - 357 x10(3)/[facility] RDW Standard Deviation 45.5(H) 36.0 - 45.0 [facility] RDW coefficient of variation 14.0(H) 11.4 - 13.8 % [facility] Mean Platelet Volume 9.7 7.6 - 12.9 fL [facility] NRBC% auto 0.0 % [facility] NRBC Absolute 0.000 0.000 - 0.000 x10(3)/[facility] Blood specimen (specimen) 07/27/2017 2:45 AM EDT 07/27/2017 2:55 AM EDT Narrative Resulting Agency Comment Spec In Lab Sriram Contreras MD HEMATOLOGY ORDERAB LES [facility] [place] [address] * (ABNORMAL) Basic Metabolic Panel (non-fasting) (07/27/2017 2:45 AM EDT) [facility] Glucose 169 65 - 199 mg/dL [facility] Comment:Diabetes: >=200 mg/d L plus symptoms Blood Urea Nitrogen 22(H) 10 - 20 mg/dL [facility] Creatinine 0.92 0.80 - 1.50 mg/dL [facility] Comment: Please note that the pediatric reference intervals supplied above were not validated at [facility]. Results from pediatric patients should be interpreted in conjunction to the patient's age, height and muscle mass. Sodium 139 135 - 145 mmol/L [facility] Potassium 3.7 3.5 - 5.0 mmol/L [facility] Comment: Please note: ??Patients with WBC >100,000 may have falsely elevated Potassium levels. ??For accurate Potassium quantification in these patients send serum separator tube (gold top) for subsequent determinations. ??Contact the Clinical Chemistry Laboratory if there are any questions. Chloride 100 98 - 107 mmol/L [facility] Carbon Dioxide 23 22 - 31 mmol/L [facility] Anion Gap 16(H) 5 - 15 mmol/L [facility] Calcium 9.4 8.5 - 10.5 mg/dL [facility] Est Glomerular Filtration Rate >60 >=60 [facility] Comment: [...] the following links into your internet browser. [email or web address] Blood specimen (specimen) 07/27/2017 2:45 AM EDT 07/27/2017 2:55 AM EDT Narrative Resulting Agency Comment Spec In Lab Sriram Contreras MD CHEMISTRY ORDERABL ES [facility] [place] [address] * Phosphorus (07/27/2017 2:45 AM EDT) [facility] Phosphorus 4.3 2.5 - 4.5 mg/dL [facility] Blood specimen (specimen) 07/27/2017 2:45 AM EDT 07/27/2017 2:55 AM EDT Narrative Resulting Agency Comment Spec In Lab Sriram Contreras MD CHEMISTRY ORDERABL ES Performing Organization Address City/[facility]/ZIP Co de Phone Number [facility] [place] [address] * Magnesium (07/27/2017 2:45 AM EDT) [facility] Magnesium 0.79 0.69 - 1.07 mmol/L [facility] Blood specimen (specimen) 07/27/2017 2:45 AM EDT 07/27/2017 2:55 AM EDT Narrative Resulting Agency Comment Spec In Lab Sriram Contreras MD CHEMISTRY ORDERABL ES Performing Organization Address [facility] Co de Phone Number [facility] [place] [address] * POCT Glucose (07/27/2017 12:02 AM EDT) [facility] Glucose, POC 112 65 - 199 mg/dL [facility] Comment: Supplemental ranges: <140 mg/dL before meals <180 mg/dL all other times of the day Blood specimen (specimen) 07/27/2017 12:02 AM EDT 07/27/2017 12:02 AM EDT Sriram Contreras MD POINT OF CARE TEST ORDERABLES Performing Organization Address City/[facility] Co de Phone Number [facility] [place] [address] * (ABNORMAL) APTT (07/26/2017 9:29 PM EDT) Partial Thromboplastin Time 90(H) 25 - 35 sec [facility] Comment: The recommended therapeutic range for full dose, unfractionated heparin at [facility] is 80 ? 114 seconds. The use of the anti-Xa (heparin) level rather than the PTT is recommended for monitoring anticoagulation intensity in critically ill patients receiving unfractionated heparin by continuous IV infusion. Blood specimen (specimen) 07/26/2017 9:29 PM EDT 07/26/2017 9:32 PM EDT Narrative Resulting Agency Comment Spec In Lab Sriram Contreras MD HEMATOLOGY ORDERAB LES Performing Organization Address City/[facility]/ZIP Co de Phone Number [facility] [place] [address] * POCT Glucose (07/26/2017 8:14 PM EDT) Glucose, POC 116 65 - 199 mg/dL [facility] Comment: Supplemental ranges: <140 mg/dL before meals <180 mg/dL all other times of the day Blood specimen (specimen) 07/26/2017 8:14 PM EDT 07/26/2017 8:14 PM EDT Sriram Contreras MD POINT OF CARE TEST ORDERABLES Performing Organization Address [facility]/ZIP Co de Phone Number [facility] [place] [address] * POCT Glucose (07/26/2017 3:20 PM EDT) Glucose, POC 125 65 - 199 mg/dL [facility] Comment: Supplemental ranges: <140 mg/dL before meals <180 mg/dL all other times of the day Blood specimen (specimen) 07/26/2017 3:20 PM EDT 07/26/2017 3:20 PM EDT Sriram Contreras MD POINT OF CARE TEST ORDERABLES Performing Organization Address City/[facility]/ZIP Co de Phone Number [facility] [place] [address] * (ABNORMAL) APTT (07/26/2017 1:51 PM EDT) Partial Thromboplastin Time 88(H) 25 - 35 sec [facility] Comment: The recommended therapeutic range for full dose, unfractionated heparin at [facility] is 80 ? 114 seconds. The use of the anti-Xa (heparin) level rather than the PTT is recommended for monitoring anticoagulation intensity in critically ill patients receiving unfractionated heparin by continuous IV infusion. Blood specimen (specimen) 07/26/2017 1:51 PM EDT 07/26/2017 1:55 PM EDT Narrative Resulting Agency Comment Spec In Lab Sriram Contreras MD HEMATOLOGY ORDERAB LES Performing Organization Address [facility]/ZIP Co de Phone Number [facility] [place] [address] * POCT Glucose (07/26/2017 11:12 AM EDT) Glucose, POC 120 65 - 199 mg/dL [facility] Comment: Supplemental ranges: <140 mg/dL before meals <180 mg/dL all other times of the day Blood specimen (specimen) 07/26/2017 11:12 AM EDT 07/26/2017 11:12 AM EDT Sriram Contreras MD POINT OF CARE TEST ORDERABLES Performing Organization Address City/[facility]/ZIP Co de Phone Number [facility] [place] [address] * POCT Glucose (07/26/2017 7:35 AM EDT) Glucose, POC 115 65 - 199 mg/dL [facility] Comment: Supplemental ranges: <140 mg/dL before meals <180 mg/dL all other times of the day Blood specimen (specimen) 07/26/2017 7:35 AM EDT 07/26/2017 7:35 AM EDT Sriram Contreras MD POINT OF CARE TEST ORDERABLES Performing Organization Address [facility] Co de Phone Number [facility] [place] [address] * (ABNORMAL) APTT (07/26/2017 3:30 AM EDT) Partial Thromboplastin Time 60(H) 25 - 35 sec [facility] Comment: The recommended therapeutic range for full dose, unfractionated heparin at [facility] is 80 ? 114 seconds. The use of the anti-Xa (heparin) level rather than the PTT is recommended for monitoring anticoagulation intensity in critically ill patients receiving unfractionated heparin by continuous IV infusion. Blood specimen (specimen) 07/26/2017 3:30 AM EDT 07/26/2017 4:11 AM EDT Narrative Resulting Agency Comment Spec In Lab Sriram Contreras MD HEMATOLOGY ORDERAB LES Performing Organization Address [facility] Co de Phone Number [facility] [place] [address] * (ABNORMAL) Differential, Automated (07/26/2017 3:30 AM EDT) Pathologist [facility] Neutrophil % 68.7 % [facility] Neutrophil Absolute 8.50(H) 1.70 - 6.10 x10(3)/mc L [facility] Lymph % 14.3 % [facility] Lymphocytes Abs 1.8 0.9 - 3.2 x10(3)/mc L [facility] Monocyte % 9.6 % [facility] Monocyte Abs 1.2(H) 0.3 - 0.9 x10(3)/mc L [facility] Eos % 1.3 % [facility] Eosinophils Abs 0.2 0.0 - 0.4 x10(3)/mc L [facility] Basophil % 1.4 % [facility] Baso Absolute 0.2(H) 0.0 - 0.1 x10(3)/mc L [facility] Immature Gran % 4.70 % [facility] Comment: Immature granulocytes(IG's)percentage and absolute count will include metamyelocytes, myelocytes, and promyelocytes. Blood smears from CBCs yielding IG's will be scanned manually for concordance. If this scan disagrees with the automated IG or if promyelocytes are noted, a manual differential will be performed. Immature Gran Absolute 0.58(H) 0.00 - 0.04 x10(3)/mc L [facility] Blood specimen (specimen) 07/26/2017 3:30 AM EDT 07/26/2017 4:11 AM EDT Narrative Resulting Agency Comment Spec In Lab Sriram Contreras MD HEMATOLOGY ORDERAB LES Performing Organization Address City/State/[facility] Co de Phone Number [facility] [place] [address] * (ABNORMAL) Hemogram (07/26/2017 3:30 AM EDT) White Blood Cell 12.4(H) 4.0 - 9.5 x10(3)/mc L [facility] Red Blood Cell 4.87 4.58 - 5.54 x10(6)/mc L [facility] Hemoglobin 15.2 13.7 - 16.5 gm/dL [facility] Hematocrit 44.1 40.5 - 48.5 % [facility] Mean Cell Volume 90.6 82.9 - 93.1 fL [facility] Mean Cell Hemoglobin 31.2 27.5 - 32.1 pg [facility] Mean Cell Hemoglobin Concentration 34.5 32.0 - 35.7 gm/dL [facility] Platelet 253 145 - 357 x10(3)/mc L [facility] RDW Standard Deviation 44.8 36.0 - 45.0 fL [facility] RDW coefficient of variation 13.6 11.4 - 13.8 % [facility] Mean Platelet Volume 10.4 7.6 - 12.9 fL [facility] NRBC% auto 0.2 % [facility] NRBC Absolute 0.020(H) 0.000 - 0.000 x10(3)/mc L [facility] Blood specimen (specimen) 07/26/2017 3:30 AM EDT 07/26/2017 4:11 AM EDT Narrative Resulting Agency Comment Spec In Lab Sriram Contreras MD HEMATOLOGY ORDERAB LES [facility] [place] [address] * Basic Metabolic Panel (non-fasting) (07/26/2017 3:30 AM EDT) Glucose 123 65 - 199 mg/dL [facility] Comment:Diabetes: >=200 mg/d L plus symptoms Blood Urea Nitrogen 18 10 - 20 mg/dL [facility] Creatinine 0.85 0.80 - 1.50 mg/dL [facility] Comment: Please note that the pediatric reference intervals supplied above were not validated at [facility]. Results from pediatric patients should be interpreted in conjunction to the patient's age, height and muscle mass. Sodium 141 135 - 145 mmol/L [facility] Potassium 3.8 3.5 - 5.0 mmol/L [facility] Comment: Please note: ??Patients with WBC >100,000 may have falsely elevated Potassium levels. ??For accurate Potassium quantification in these patients send serum separator tube (gold top) for subsequent determinations. ??Contact the Clinical Chemistry Laboratory if there are any questions. Chloride 102 98 - 107 mmol/L [facility] Carbon Dioxide 25 22 - 31 mmol/L [facility] Anion Gap 14 5 - 15 mmol/L [facility] Calcium 9.2 8.5 - 10.5 mg/dL [facility] Est Glomerular Filtration Rate >60 >=60 [facility] Comment: [...] the following links into your internet browser. [email or web address] Blood specimen (specimen) 07/26/2017 3:30 AM EDT 07/26/2017 4:11 AM EDT Narrative Resulting Agency Comment Spec In Lab Sriram Contreras MD CHEMISTRY ORDERABL ES Performing Organization Address [facility] Phone Number [facility] [place] [address] * Prealbumin (07/26/2017 3:30 AM EDT) Prealbumin 26 20 - 40 mg/dL [facility] Comment: Prealbumin levels are generally lower in the pediatric population; adult concentrations are usually attained near puberty. Blood specimen (specimen) 07/26/2017 3:30 AM EDT 07/26/2017 4:11 AM EDT Narrative Resulting Agency Comment Spec In Lab Sriram Contreras MD CHEMISTRY ORDERABL ES Performing Organization Address [facility] de Phone Number [facility] [place] [address] * POCT Glucose (07/26/2017 3:27 AM EDT) Glucose, POC 116 65 - 199 mg/dL [facility] Comment: Supplemental ranges: <140 mg/dL before meals <180 mg/dL all other times of the day Blood specimen (specimen) 07/26/2017 3:27 AM EDT 07/26/2017 3:27 AM EDT Sriram Contreras MD POINT OF CARE TEST ORDERABLES Performing Organization Address [facility] Phone Number [facility] [place] [address] * POCT Glucose (07/25/2017 7:50 PM EDT) Glucose, POC 109 65 - 199 mg/dL [facility] Comment: Supplemental ranges: <140 mg/dL before meals <180 mg/dL all other times of the day Blood specimen (specimen) 07/25/2017 7:50 PM EDT 07/25/2017 7:50 PM EDT Sriram Contreras MD POINT OF CARE TEST ORDERABLES Performing Organization Address [facility] Co de Phone Number [facility] [place] [address] * (ABNORMAL) APTT (07/25/2017 5:51 PM EDT) Partial Thromboplastin Time 112(H) 25 - 35 sec [facility] Comment: The recommended therapeutic range for full dose, unfractionated heparin at [facility] is 80 ? 114 seconds. The use of the anti-Xa (heparin) level rather than the PTT is recommended for monitoring anticoagulation intensity in critically ill patients receiving unfractionated heparin by continuous IV infusion. Blood specimen (specimen) 07/25/2017 5:51 PM EDT 07/25/2017 5:55 PM EDT Narrative Resulting Agency Comment Spec In Lab Sriram Contreras MD HEMATOLOGY ORDERAB LES Performing Organization Address City/[facility]/ZIP Co de Phone Number [facility] [place] [address] * POCT Glucose (07/25/2017 4:01 PM EDT) Glucose, POC 109 65 - 199 mg/dL [facility] Comment: Supplemental ranges: <140 mg/dL before meals <180 mg/dL all other times of the day Blood specimen (specimen) 07/25/2017 4:01 PM EDT 07/25/2017 4:01 PM EDT Sriram Contreras MD POINT OF CARE TEST ORDERABLES Performing Organization Address [facility] Co de Phone Number [facility] [place] [address] * POCT Glucose (07/25/2017 12:10 PM EDT) Pathologist [facility] Glucose, POC 117 65 - 199 mg/dL [facility] Comment: Supplemental ranges: <140 mg/dL before meals <180 mg/dL all other times of the day Blood specimen (specimen) 07/25/2017 12:10 PM EDT 07/25/2017 12:10 PM EDT Sriram Contreras MD POINT OF CARE TEST ORDERABLES Performing Organization Address [facility] de Phone Number [facility] [place] [address] * Potassium (07/25/2017 11:00 AM EDT) [facility] Potassium 3.9 3.5 - 5.0 mmol/L [facility] Comment: Please note: ??Patients with [...] ORDERABL ES Performing Organization Address [facility] Co de Phone Number [facility] [place] [address] * (ABNORMAL) APTT (07/25/2017 11:00 AM EDT) [facility] Partial Thromboplastin Time 102(H) 25 - 35 sec [facility] Comment: The recommended therapeutic range for full dose, unfractionated heparin at [facility] is 80 ? 114 seconds. The use of the anti-Xa (heparin) level rather than the PTT is recommended for monitoring anticoagulation intensity in critically ill patients receiving unfractionated heparin by continuous IV infusion. Blood specimen (specimen) 07/25/2017 11:00 AM EDT 07/25/2017 11:05 AM EDT Narrative Resulting Agency Comment Spec In Lab Sriram Contreras MD HEMATOLOGY ORDERAB LES Performing Organization Address [facility] Co de Phone Number [facility] [place] [address] * POCT Glucose (07/25/2017 8:27 AM EDT) Glucose, POC 124 65 - 199 mg/dL [facility] Comment: Supplemental ranges: <140 mg/dL before meals <180 mg/dL all other times of the day Blood specimen (specimen) 07/25/2017 8:27 AM EDT 07/25/2017 8:27 AM EDT Sriram Contreras MD POINT OF CARE TEST ORDERABLES Performing Organization Address [facility] Co de Phone Number [facility] [place] [address] * (ABNORMAL) BLOOD GAS 2 ARTERIAL (07/25/2017 6:19 AM EDT) pH, Arterial 7.51(H) 7.35 - 7.45 [facility] PCO2, Arterial 29(L) 35 - 45 mmHg [facility] PO2, Arterial 59(L) 85 - 104 mmHg [facility] Bicarbonate, Arterial 22.2 20.0 - 26.0 mmol/L [facility] Base Excess, Arterial -0.9 -3.0 - 3.0 mmol/L [facility] Hgb Blood Gas 14.6 13.7 - 16.5 gm/dL [facility] Oxyhemoglobin, Arterial 91.1(L) 94.0 - 97.0 % [facility] Carboxyhemoglob in, Arterial 0.3 % [facility] Comment: Nonsmokers: 0.5-1.5% COHB Smokers: Variable, but usually less than 10% Toxic: 20-30% COHB Lethal: Greater than 60% COHB Methemoglobin, Arterial 0.6 <=1.5 % [facility] Na Whole Blood 141 135 - 145 mmol/L [facility] K Whole Blood 3.8 3.5 - 5.0 mmol/L [facility] Comment: Please note: Patients with WBC >100,000 may have falsely elevated Potassium levels. Contact the Clinical Chemistry Laboratory if there are any questions. ICa Whole Blood 1.17 1.15 - 1.33 mmol/L [facility] Comment: Note: ??Total bilirubin higher than 20 mg/dL may lead to falsely low ionized calcium. CL Whole Blood 108(H) 98 - 107 mmol/L [facility] Gluc Whole Bld 136 65 - 199 mg/dL [facility] Comment:Diabetes: >=200 mg/d L plus symptoms. Lactate WB 1.5 0.5 - 2.2 mmol/L [facility] Blood specimen (specimen) 07/25/2017 6:19 AM EDT 07/25/2017 6:19 AM EDT Sriram Contreras MD POINT OF CARE TEST ORDERABLES Performing Organization Address [facility] Co de Phone Number [facility] [place] [address] * POCT Glucose (07/25/2017 4:41 AM EDT) Glucose, POC 101 65 - 199 mg/dL [facility] Comment: Supplemental ranges: <140 mg/dL before meals <180 mg/dL all other times of the day Blood specimen (specimen) 07/25/2017 4:41 AM EDT 07/25/2017 4:41 AM EDT Sriram Contreras MD POINT OF CARE TEST ORDERABLES Performing Organization Address City/[facility]/ZIP Co de Phone Number [facility] [place] [address] * Magnesium (07/25/2017 4:37 AM EDT) Pathologist [facility] Magnesium 0.83 0.69 - 1.07 mmol/L [facility] Blood specimen (specimen) Venous Draw / Unknown 07/25/2017 4:37 AM EDT 07/25/2017 4:50 AM EDT Narrative Resulting Agency Comment Spec In Lab Sriram Contreras MD CHEMISTRY ORDERABL ES [facility] [place] [address] * (ABNORMAL) Differential, Automated (07/25/2017 4:37 AM EDT) [facility] Neutrophil % 68.4 % [facility] Neutrophil Absolute 8.77(H) 1.70 - 6.10 x10(3)/mc L [facility] Lymph % 15.0 % [facility] Lymphocytes Abs 1.9 0.9 - 3.2 x10(3)/mc L [facility] Monocyte % 8.9 % [facility] Monocyte Abs 1.1(H) 0.3 - 0.9 x10(3)/mc L [facility] Eos % 1.9 % [facility] Eosinophils Abs 0.2 0.0 - 0.4 x10(3)/mc L [facility] Basophil % 1.0 % [facility] Baso Absolute 0.1 0.0 - 0.1 x10(3)/mc L [facility] Immature Gran % 4.80 % [facility] Comment: Immature granulocytes(IG's)percentage and absolute count will include metamyelocytes, myelocytes, and promyelocytes. Blood smears from CBCs yielding IG's will be scanned manually for concordance. If this scan disagrees with the automated IG or if promyelocytes are noted, a manual differential will be performed. Immature Gran Absolute 0.62(H) 0.00 - 0.04 x10(3)/ L [facility] Blood specimen (specimen) 07/25/2017 4:37 AM EDT 07/25/2017 4:48 AM EDT Narrative Resulting Agency Comment Spec In Lab Sriram Contreras MD HEMATOLOGY ORDERAB LES Performing Organization Address City/State/[facility] Co de Phone Number [facility] [place] [address] * (ABNORMAL) Hemogram (07/25/2017 4:37 AM EDT) White Blood Cell 12.8(H) 4.0 - 9.5 x10(3)/[facility]AT[facility] Red Blood Cell 4.53(L) 4.58 - 5.54 x10(6)/[facility] Hemoglobin 14.0 13.7 - 16.5 gm/dL [facility] Hematocrit 40.3(L) 40.5 - 48.5 % [facility] Mean Cell Volume 89.0 82.9 - 93.1 [facility] Mean Cell Hemoglobin 30.9 27.5 - 32.1 pg [facility] Mean Cell Hemoglobin Concentration 34.7 32.0 - 35.7 gm/dL [facility] Platelet 241 145 - 357 x10(3)/[facility]ORATORY RDW Standard Deviation 43.1 36.0 - 45.0 [facility] RDW coefficient of variation 13.2 11.4 - 13.8 % [facility] Mean Platelet Volume 9.9 7.6 - 12.9 [facility] NRBC% auto 0.0 % [facility] NRBC Absolute 0.000 0.000 - 0.000 x10(3)/ L [facility] Blood specimen (specimen) 07/25/2017 4:37 AM EDT 07/25/2017 4:48 AM EDT Narrative Resulting Agency Comment Spec In Lab Sriram Contreras MD HEMATOLOGY ORDERAB LES [facility] [place] [address] * Basic Metabolic Panel (non-fasting) (07/25/2017 4:37 AM EDT) Glucose 120 65 - 199 mg/dL [facility] Comment:Diabetes: >=200 mg/d L plus symptoms Blood Urea Nitrogen 14 10 - 20 mg/dL [facility] Creatinine 0.81 0.80 - 1.50 mg/dL [facility] Comment: Please note that the pediatric reference intervals supplied above were not validated at [facility]. Results from pediatric patients should be interpreted in conjunction to the patient's age, height and muscle mass. Sodium 140 135 - 145 mmol/L [facility] Potassium 3.6 3.5 - 5.0 mmol/L [facility] Comment: Please note: ??Patients with WBC >100,000 may have falsely elevated Potassium levels. ??For accurate Potassium quantification in these patients send serum separator tube (gold top) for subsequent determinations. ??Contact the Clinical Chemistry Laboratory if there are any questions. Chloride 103 98 - 107 mmol/L [facility] Carbon Dioxide 24 22 - 31 mmol/L [facility] Anion Gap 13 5 - 15 mmol/L [facility] Calcium 8.8 8.5 - 10.5 mg/dL [facility] Est Glomerular Filtration Rate >60 >=60 [facility] Comment: [...] the following links into your internet browser. [email or web address] Blood specimen (specimen) 07/25/2017 4:37 AM EDT 07/25/2017 4:48 AM EDT Narrative Resulting Agency Comment Spec In Lab Sriram Contreras MD CHEMISTRY ORDERABL ES Performing Organization Address [facility] de Phone Number [facility] [place] [address] * (ABNORMAL) APTT (07/25/2017 4:37 AM EDT) Partial Thromboplastin Time 122(H) 25 - 35 sec [facility] Comment: The recommended therapeutic range for full dose, unfractionated heparin at [facility] is 80 ? 114 seconds. The use of the anti-Xa (heparin) level rather than the PTT is recommended for monitoring anticoagulation intensity in critically ill patients receiving unfractionated heparin by continuous IV infusion. Blood specimen (specimen) 07/25/2017 4:37 AM EDT 07/25/2017 4:48 AM EDT Narrative Resulting Agency Comment Spec In Lab Sriram Contreras MD HEMATOLOGY ORDERAB LES Performing Organization Address [facility] Phone Number [facility] [place] [address] * POCT Glucose (07/25/2017 12:10 AM EDT) Glucose, POC 108 65 - 199 mg/dL [facility] Comment: Supplemental ranges: <140 mg/dL before meals <180 mg/dL all other times of the day Blood specimen (specimen) 07/25/2017 12:10 AM EDT 07/25/2017 12:10 AM EDT Sriram Contreras MD POINT OF CARE TEST ORDERABLES Performing Organization Address [facility] Co de Phone Number [facility] [place] [address] * POCT Glucose (07/24/2017 8:05 PM EDT) Glucose, POC 112 65 - 199 mg/dL [facility] Comment: Supplemental ranges: <140 mg/dL before meals <180 mg/dL all other times of the day Blood specimen (specimen) 07/24/2017 8:05 PM EDT 07/24/2017 8:05 PM EDT Sriram Contreras MD POINT OF CARE TEST ORDERABLES [facility] [place] [address] * POCT Glucose (07/24/2017 8:04 PM EDT) Glucose, POC 106 65 - 199 mg/dL [facility] Comment: Supplemental ranges: <140 mg/dL before meals <180 mg/dL all other times of the day Blood specimen (specimen) 07/24/2017 8:04 PM EDT 07/24/2017 8:04 PM EDT Sriram Contreras MD POINT OF CARE TEST ORDERABLES Performing Organization Address City/[facility]/ZIP Co de Phone Number [facility] [place] [address] * POCT Glucose (07/24/2017 3:42 PM EDT) Glucose, POC 108 65 - 199 mg/dL [facility] Comment: Supplemental ranges: <140 mg/dL before meals <180 mg/dL all other times of the day Blood specimen (specimen) 07/24/2017 3:42 PM EDT 07/24/2017 3:42 PM EDT Sriram Contreras MD POINT OF CARE TEST ORDERABLES [facility] [place] [address] * POCT Glucose (07/24/2017 11:42 AM EDT) Glucose, POC 102 65 - 199 mg/dL [facility] Comment: Supplemental ranges: <140 mg/dL before meals <180 mg/dL all other times of the day Blood specimen (specimen) 07/24/2017 11:42 AM EDT 07/24/2017 11:42 AM EDT Sriram Contreras MD POINT OF CARE TEST ORDERABLES Performing Organization Address City/[facility] Co de Phone Number [facility] [place] [address] * POCT Glucose (07/24/2017 8:00 AM EDT) Glucose, POC 107 65 - 199 mg/dL [facility] Comment: Supplemental ranges: <140 mg/dL before meals <180 mg/dL all other times of the day Blood specimen (specimen) 07/24/2017 8:00 AM EDT 07/24/2017 8:00 AM EDT Sriram Contreras MD POINT OF CARE TEST ORDERABLES Performing Organization Address City/[facility] Co de Phone Number [facility] [place] [address] * (ABNORMAL) BLOOD GAS 2 ARTERIAL (07/24/2017 7:28 AM EDT) pH, Arterial 7.44 7.35 - 7.45 [facility] PCO2, Arterial 39 35 - 45 mmHg [facility] PO2, Arterial 67(L) 85 - 104 mmHg [facility] Bicarbonate, Arterial 25.5 20.0 - 26.0 mmol/L [facility] Base Excess, Arterial 1.2 -3.0 - 3.0 mmol/L [facility] Hgb Blood Gas 13.8 13.7 - 16.5 gm/dL [facility] Oxyhemoglobin, Arterial 92.8(L) 94.0 - 97.0 % [facility] Carboxyhemoglob in, Arterial 0.3 % [facility] Comment: Nonsmokers: 0.5-1.5% COHB Smokers: Variable, but usually less than 10% Toxic: 20-30% COHB Lethal: Greater than 60% COHB Methemoglobin, Arterial 0.6 <=1.5 % [facility] Na Whole Blood 139 135 - 145 mmol/L [facility] K Whole Blood 4.0 3.5 - 5.0 mmol/L [facility] Comment: Please note: Patients with WBC >100,000 may have falsely elevated Potassium levels. Contact the Clinical Chemistry Laboratory if there are any questions. ICa Whole Blood 1.21 1.15 - 1.33 mmol/L [facility] Comment: Note: ??Total bilirubin higher than 20 mg/dL may lead to falsely low ionized calcium. CL Whole Blood 105 98 - 107 mmol/L [facility] Gluc Whole Bld 123 65 - 199 mg/dL [facility] Comment:Diabetes: >=200 mg/d L plus symptoms. Lactate WB 1.7 0.5 - 2.2 mmol/L [facility] FIO2 Art 30 % [facility] PF Ratio Art 223 [facility] Blood specimen (specimen) 07/24/2017 7:28 AM EDT 07/24/2017 7:28 AM EDT Sriram Contreras MD POINT OF CARE TEST ORDERABLES Performing Organization Address City/State/[facility] de Phone Number [facility] [place] [address] * Potassium (07/24/2017 7:28 AM EDT) Potassium 4.1 3.5 - 5.0 mmol/L [facility] Comment: Please note: ??Patients with [...] MD CHEMISTRY ORDERABL ES Performing Organization Address [facility] Co de Phone Number [facility] [place] [address] * POCT Glucose (07/24/2017 3:42 AM EDT) [facility] Glucose, POC 91 65 - 199 mg/dL [facility] Comment: Supplemental ranges: <140 mg/dL before meals <180 mg/dL all other times of the day Blood specimen (specimen) 07/24/2017 3:42 AM EDT 07/24/2017 3:42 AM EDT Sriram Contreras MD POINT OF CARE TEST ORDERABLES Performing Organization Address [facility] Number [facility] [place] [address] * Scan, Peripheral Blood (07/24/2017 1:00 AM EDT) [facility] Plat estimate Normal [facility] RBC Morphology Normal [facility] Blood specimen (specimen) Venous Draw / Unknown 07/24/2017 1:00 AM EDT 07/24/2017 1:15 AM EDT Narrative Resulting Agency Comment Spec In Lab Sriram Contreras MD HEMATOLOGY ORDERAB LES Performing Organization Address [facility] Co de Phone Number [facility] [place] [address] * (ABNORMAL) Differential, Automated (07/24/2017 1:00 AM EDT) [facility] Neutrophil % 69.9 % [facility] Neutrophil Absolute 9.34(H) 1.70 - 6.10 x10(3)/mc L [facility] Lymph % 13.7 % [facility] Lymphocytes Abs 1.8 0.9 - 3.2 x10(3)/[facility] Monocyte % 8.1 % [facility] Monocyte Abs 1.1(H) 0.3 - 0.9 x10(3)/[facility] Eos % 2.2 % [facility] Eosinophils Abs 0.3 0.0 - 0.4 x10(3)/[facility] Basophil % 0.7 % [facility] Baso Absolute 0.1 0.0 - 0.1 x10(3)/[facility] Immature Gran % 5.40 % [facility] Comment: Immature granulocytes(IG's)percentage and absolute count will include metamyelocytes, myelocytes, and promyelocytes. Blood smears from CBCs yielding IG's will be scanned manually for concordance. If this scan disagrees with the automated IG or if promyelocytes are noted, a manual differential will be performed. Immature Gran Absolute 0.72(H) 0.00 - 0.04 x10(3)/[facility] Blood specimen (specimen) 07/24/2017 1:00 AM EDT 07/24/2017 1:15 AM EDT Narrative Resulting Agency Comment Spec In Lab Sriram Contreras MD HEMATOLOGY ORDERAB LES Performing Organization Address City/State/[facility] Co de Phone Number [facility] [place] [address] * (ABNORMAL) Hemogram (07/24/2017 1:00 AM EDT) White Blood Cell 13.4(H) 4.0 - 9.5 x10(3)/[facility] Red Blood Cell 4.13(L) 4.58 - 5.54 x10(6)/[facility] Hemoglobin 12.7(L) 13.7 - 16.5 gm/dL [facility] Hematocrit 38.0(L) 40.5 - 48.5 % [facility] Mean Cell Volume 92.0 82.9 - 93.1 fL [facility] Mean Cell Hemoglobin 30.8 27.5 - 32.1 pg [facility] Mean Cell Hemoglobin Concentration 33.4 32.0 - 35.7 gm/dL [facility] Platelet 201 145 - 357 x10(3)/mc L [facility] RDW Standard Deviation 45.5(H) 36.0 - 45.0 fL [facility] RDW coefficient of variation 13.4 11.4 - 13.8 % [facility] Mean Platelet Volume 10.1 7.6 - 12.9 fL [facility] NRBC% auto 0.0 % [facility] NRBC Absolute 0.000 0.000 - 0.000 x10(3)/mc L [facility] Blood specimen (specimen) 07/24/2017 1:00 AM EDT 07/24/2017 1:15 AM EDT Narrative Resulting Agency Comment Spec In Lab Sriram Contreras MD HEMATOLOGY ORDERAB LES Performing Organization Address [facility] Co de Phone Number [facility] [place] [address] * (ABNORMAL) APTT (07/24/2017 1:00 AM EDT) [facility] Partial Thromboplastin Time 102(H) 25 - 35 sec [facility] Comment: The recommended therapeutic range for full dose, unfractionated heparin at [facility] is 80 ? 114 seconds. The use of the anti-Xa (heparin) level rather than the PTT is recommended for monitoring anticoagulation intensity in critically ill patients receiving unfractionated heparin by continuous IV infusion. Blood specimen (specimen) 07/24/2017 1:00 AM EDT 07/24/2017 1:14 AM EDT Narrative Resulting Agency Comment Spec In Lab Sriram Contreras MD HEMATOLOGY ORDERAB LES Performing Organization Address City/[facility]/ZIP Co de Phone Number [facility] [place] [address] * (ABNORMAL) Basic Metabolic Panel (non-fasting) (07/24/2017 1:00 AM EDT) Glucose 103 65 - 199 mg/dL [facility] Comment:Diabetes: >=200 mg/d L plus symptoms Blood Urea Nitrogen 17 10 - 20 mg/dL [facility] Creatinine 0.70(L) 0.80 - 1.50 mg/dL [facility] Comment: Please note that the pediatric reference intervals supplied above were not validated at [facility]. Results from pediatric patients should be interpreted in conjunction to the patient's age, height and muscle mass. Sodium 143 135 - 145 mmol/L [facility] Potassium 4.0 3.5 - 5.0 mmol/L [facility] Comment: Please note: ??Patients with WBC >100,000 may have falsely elevated Potassium levels. ??For accurate Potassium quantification in these patients send serum separator tube (gold top) for subsequent determinations. ??Contact the Clinical Chemistry Laboratory if there are any questions. Chloride 104 98 - 107 mmol/L [facility] Carbon Dioxide 27 22 - 31 mmol/L [facility] Anion Gap 12 5 - 15 mmol/L [facility] Calcium 8.7 8.5 - 10.5 mg/dL [facility] Est Glomerular Filtration Rate >60 >=60 [facility] Comment: [...] the following links into your internet browser. [email or web address] Blood specimen (specimen) 07/24/2017 1:00 AM EDT 07/24/2017 1:14 AM EDT Narrative Resulting Agency Comment Spec In Lab Sriram Contreras MD CHEMISTRY ORDERABL ES Performing Organization Address [facility] Co de Phone Number [facility] [place] [address] * POCT Glucose (07/23/2017 11:53 PM EDT) Glucose, POC 95 65 - 199 mg/dL [facility] Comment: Supplemental ranges: <140 mg/dL before meals <180 mg/dL all other times of the day Blood specimen (specimen) 07/23/2017 11:53 PM EDT 07/23/2017 11:53 PM EDT Sriram Contreras MD POINT OF CARE TEST ORDERABLES Performing Organization Address [facility] Co de Phone Number [facility] [place] [address] * POCT Glucose (07/23/2017 7:52 PM EDT) Glucose, POC 91 65 - 199 mg/dL [facility] Comment: Supplemental ranges: <140 mg/dL before meals <180 mg/dL all other times of the day Blood specimen (specimen) 07/23/2017 7:52 PM EDT 07/23/2017 7:52 PM EDT Sriram Contreras MD POINT OF CARE TEST ORDERABLES Performing Organization Address [facility] Co de Phone Number [facility] [place] [address] * POCT Glucose (07/23/2017 2:56 PM EDT) Glucose, POC 115 65 - 199 mg/dL [facility] Comment: Supplemental ranges: <140 mg/dL before meals <180 mg/dL all other times of the day Blood specimen (specimen) 07/23/2017 2:56 PM EDT 07/23/2017 2:56 PM EDT Sriram Contreras MD POINT OF CARE TEST ORDERABLES Performing Organization Address [facility] Co de Phone Number [facility] [place] [address] * (ABNORMAL) APTT (07/23/2017 2:55 PM EDT) Partial Thromboplastin Time 101(H) 25 - 35 sec [facility] Comment: The recommended therapeutic range for full dose, unfractionated heparin at [facility] is 80 ? 114 seconds. The use of the anti-Xa (heparin) level rather than the PTT is recommended for monitoring anticoagulation intensity in critically ill patients receiving unfractionated heparin by continuous IV infusion. Blood specimen (specimen) 07/23/2017 2:55 PM EDT 07/23/2017 3:04 PM EDT Narrative Resulting Agency Comment Spec In Lab Sriram Contreras MD HEMATOLOGY ORDERAB LES Performing Organization Address [facility] Co de Phone Number [facility] [place] [address] * POCT Glucose (07/23/2017 12:07 PM EDT) [facility] Glucose, POC 97 65 - 199 mg/dL [facility] Comment: Supplemental ranges: <140 mg/dL before meals <180 mg/dL all other times of the day Blood specimen (specimen) 07/23/2017 12:07 PM EDT 07/23/2017 12:07 PM EDT Sriram Contreras MD POINT OF CARE TEST ORDERABLES Performing Organization Address [facility] Co de Phone Number [facility] [place] [address] * (ABNORMAL) APTT (07/23/2017 8:27 AM EDT) Partial Thromboplastin Time 95(H) 25 - 35 sec [facility] Comment: The recommended therapeutic range for full dose, unfractionated heparin at [facility] is 80 ? 114 seconds. The use of the anti-Xa (heparin) level rather than the PTT is recommended for monitoring anticoagulation intensity in critically ill patients receiving unfractionated heparin by continuous IV infusion. Blood specimen (specimen) 07/23/2017 8:27 AM EDT 07/23/2017 8:51 AM EDT Narrative Resulting Agency Comment Spec In Lab Sriram Contreras MD HEMATOLOGY ORDERAB LES Performing Organization Address [facility] Co de Phone Number [facility] [place] [address] * POCT Glucose (07/23/2017 8:02 AM EDT) Glucose, POC 103 65 - 199 mg/dL [facility] Comment: Supplemental ranges: <140 mg/dL before meals <180 mg/dL all other times of the day Blood specimen (specimen) 07/23/2017 8:02 AM EDT 07/23/2017 8:02 AM EDT Sriram Contreras MD POINT OF CARE TEST ORDERABLES Performing Organization Address [facility] Co de Phone Number [facility] [place] [address] * (ABNORMAL) BLOOD GAS 2 ARTERIAL (07/23/2017 6:32 AM EDT) pH, Arterial 7.41 7.35 - 7.45 [facility] PCO2, Arterial 37 35 - 45 mmHg [facility] PO2, Arterial 60(L) 85 - 104 mmHg [facility] Bicarbonate, Arterial 22.6 20.0 - 26.0 mmol/L [facility] Base Excess, Arterial -2.0 -3.0 - 3.0 mmol/L [facility] Hgb Blood Gas 12.7(L) 13.7 - 16.5 gm/dL [facility] Oxyhemoglobin, Arterial 90.3(L) 94.0 - 97.0 % [facility] Carboxyhemoglob in, Arterial 0.3 % [facility] Comment: Nonsmokers: 0.5-1.5% COHB Smokers: Variable, but usually less than 10% Toxic: 20-30% COHB Lethal: Greater than 60% COHB Methemoglobin, Arterial 0.5 <=1.5 % [facility] Na Whole Blood 138 135 - 145 mmol/L [facility] K Whole Blood 3.7 3.5 - 5.0 mmol/L [facility] Comment: Please note: Patients with WBC >100,000 may have falsely elevated Potassium levels. Contact the Clinical Chemistry Laboratory if there are any questions. ICa Whole Blood 1.15(L) 1.15 - 1.33 mmol/L [facility] Comment: Note: ??Total bilirubin higher than 20 mg/dL may lead to falsely low ionized calcium. CL Whole Blood 109(H) 98 - 107 mmol/L [facility] Gluc Whole Bld 122 65 - 199 mg/dL [facility] Comment:Diabetes: >=200 mg/d L plus symptoms. Lactate WB 1.4 0.5 - 2.2 mmol/L [facility] FIO2 Art 30 % [facility] PF Ratio Art 200 [facility] Blood specimen (specimen) 07/23/2017 6:32 AM EDT 07/23/2017 6:32 AM EDT Sriram Contreras MD POINT OF CARE TEST ORDERABLES Performing Organization Address City/State/[facility] Co de Phone Number [facility] [place] [address] * Potassium (07/23/2017 4:15 AM EDT) Potassium 4.1 3.5 - 5.0 mmol/L [facility] Comment: Please note: ??Patients with [...] MD CHEMISTRY ORDERABL ES Performing Organization Address [facility] Phone Number [facility] [place] [address] * POCT Glucose (07/23/2017 3:50 AM EDT) [facility] Glucose, POC 126 65 - 199 mg/dL [facility] Comment: Supplemental ranges: <140 mg/dL before meals <180 mg/dL all other times of the day Blood specimen (specimen) 07/23/2017 3:50 AM EDT 07/23/2017 3:50 AM EDT Sriram Contreras MD POINT OF CARE TEST ORDERABLES Performing Organization Address [facility] Number [facility] [place] [address] * (ABNORMAL) APTT (07/23/2017 1:53 AM EDT) [facility] Partial Thromboplastin Time 119(H) 25 - 35 sec [facility] Comment: The recommended therapeutic range for full dose, unfractionated heparin at [facility] is 80 ? 114 seconds. The use of the anti-Xa (heparin) level rather than the PTT is recommended for monitoring anticoagulation intensity in critically ill patients receiving unfractionated heparin by continuous IV infusion. Blood specimen (specimen) 07/23/2017 1:53 AM EDT 07/23/2017 2:01 AM EDT Narrative Resulting Agency Comment Spec In Lab Sriram Contreras MD HEMATOLOGY ORDERAB LES Performing Organization Address [facility] Phone Number [facility] [place] [address] * (ABNORMAL) Differential, Automated (07/23/2017 12:45 AM EDT) [facility] Neutrophil % 63.2 % [facility] Neutrophil Absolute 6.47(H) 1.70 - 6.10 x10(3)/ L [facility] Lymph % 20.9 % [facility] Lymphocytes Abs 2.1 0.9 - 3.2 x10(3)/ L [facility] Monocyte % 7.6 % [facility] Monocyte Abs 0.8 0.3 - 0.9 x10(3)/[facility] Eos % 2.8 % [facility] Eosinophils Abs 0.3 0.0 - 0.4 x10(3)/[facility] Basophil % 0.7 % [facility] Baso Absolute 0.1 0.0 - 0.1 x10(3)/[facility] Immature Gran % 4.80 % [facility] Comment: Immature granulocytes(IG's)percentage and absolute count will include metamyelocytes, myelocytes, and promyelocytes. Blood smears from CBCs yielding IG's will be scanned manually for concordance. If this scan disagrees with the automated IG or if promyelocytes are noted, a manual differential will be performed. Immature Gran Absolute 0.49(H) 0.00 - 0.04 x10(3)/[facility] Blood specimen (specimen) 07/23/2017 12:45 AM EDT 07/23/2017 12:51 AM EDT Narrative Resulting Agency Comment Spec In Lab Sriram Contreras MD HEMATOLOGY ORDERAB LES [facility] [place] [address] * (ABNORMAL) Hemogram (07/23/2017 12:45 AM EDT) White Blood Cell 10.2(H) 4.0 - 9.5 x10(3)/[facility] Red Blood Cell 3.62(L) 4.58 - 5.54 x10(6)/[facility] Hemoglobin 11.1(L) 13.7 - 16.5 gm/dL [facility] Hematocrit 33.5(L) 40.5 - 48.5 % [facility] Mean Cell Volume 92.5 82.9 - 93.1 fL [facility] Mean Cell Hemoglobin 30.7 27.5 - 32.1 pg [facility] Mean Cell Hemoglobin Concentration 33.1 32.0 - 35.7 gm/dL [facility] Platelet 165 145 - 357 x10(3)/mc L [facility] RDW Standard Deviation 46.6(H) 36.0 - 45.0 fL [facility] RDW coefficient of variation 13.7 11.4 - 13.8 % [facility] Mean Platelet Volume 9.9 7.6 - 12.9 [facility] NRBC% auto 0.0 % [facility] NRBC Absolute 0.000 0.000 - 0.000 x10(3)/mc L [facility] Blood specimen (specimen) 07/23/2017 12:45 AM EDT 07/23/2017 12:51 AM EDT Narrative Resulting Agency Comment Spec In Lab Sriram Contreras MD HEMATOLOGY ORDERAB LES [facility] [place] [address] * (ABNORMAL) Basic Metabolic Panel (non-fasting) (07/23/2017 12:45 AM EDT) Glucose 127 65 - 199 mg/dL [facility] Comment:Diabetes: >=200 mg/d L plus symptoms Blood Urea Nitrogen 20 10 - 20 mg/dL [facility] Creatinine 0.65(L) 0.80 - 1.50 mg/dL [facility] Comment: Please note that the pediatric reference intervals supplied above were not validated at [facility]. Results from pediatric patients should be interpreted in conjunction to the patient's age, height and muscle mass. Sodium 142 135 - 145 mmol/L [facility] Potassium 3.7 3.5 - 5.0 mmol/L [facility] Comment: Please note: ??Patients with WBC >100,000 may have falsely elevated Potassium levels. ??For accurate Potassium quantification in these patients send serum separator tube (gold top) for subsequent determinations. ??Contact the Clinical Chemistry Laboratory if there are any questions. Chloride 105 98 - 107 mmol/L [facility] Carbon Dioxide 26 22 - 31 mmol/L [facility] Anion Gap 11 5 - 15 mmol/L [facility] Calcium 8.3(L) 8.5 - 10.5 mg/dL [facility] Est Glomerular Filtration Rate >60 >=60 [facility] Comment: [...] the following links into your internet browser. [email or web address] Blood specimen (specimen) 07/23/2017 12:45 AM EDT 07/23/2017 12:51 AM EDT Narrative Resulting Agency Comment Spec In Lab Sriram Contreras MD CHEMISTRY ORDERABL ES [facility] [place] [address] * POCT Glucose (07/22/2017 11:59 PM EDT) Glucose, POC 113 65 - 199 mg/dL [facility] Comment: Supplemental ranges: <140 mg/dL before meals <180 mg/dL all other times of the day Blood specimen (specimen) 07/22/2017 11:59 PM EDT 07/22/2017 11:59 PM EDT Sriram Contreras MD POINT OF CARE TEST ORDERABLES Performing Organization Address [facility] Co de Phone Number [facility] [place] [address] * POCT Glucose (07/22/2017 8:07 PM EDT) Glucose, POC 111 65 - 199 mg/dL [facility] Comment: Supplemental ranges: <140 mg/dL before meals <180 mg/dL all other times of the day Blood specimen (specimen) 07/22/2017 8:07 PM EDT 07/22/2017 8:07 PM EDT Sriram Contreras MD POINT OF CARE TEST ORDERABLES Performing Organization Address [facility] de Phone Number [facility] [place] [address] * POCT Glucose (07/22/2017 4:00 PM EDT) Glucose, POC 112 65 - 199 mg/dL [facility] Comment: Supplemental ranges: <140 mg/dL before meals <180 mg/dL all other times of the day Blood specimen (specimen) 07/22/2017 4:00 PM EDT 07/22/2017 4:00 PM EDT Sriram Contreras MD POINT OF CARE TEST ORDERABLES Performing Organization Address [facility] Co de Phone Number [facility] [place] [address] * (ABNORMAL) APTT (07/22/2017 4:00 PM EDT) Partial Thromboplastin Time 92(H) 25 - 35 sec [facility] Comment: The recommended therapeutic range for full dose, unfractionated heparin at [facility] is 80 ? 114 seconds. The use of the anti-Xa (heparin) level rather than the PTT is recommended for monitoring anticoagulation intensity in critically ill patients receiving unfractionated heparin by continuous IV infusion. Blood specimen (specimen) 07/22/2017 4:00 PM EDT 07/22/2017 4:18 PM EDT Narrative Resulting Agency Comment Spec In Lab Sriram Contreras MD HEMATOLOGY ORDERAB LES Performing Organization Address [facility] de Phone Number [facility] [place] [address] * POCT Glucose (07/22/2017 11:45 AM EDT) [facility] Glucose, POC 111 65 - 199 mg/dL [facility] Comment: Supplemental ranges: <140 mg/dL before meals <180 mg/dL all other times of the day Blood specimen (specimen) 07/22/2017 11:45 AM EDT 07/22/2017 11:45 AM EDT Sriram Contreras MD POINT OF CARE TEST ORDERABLES Performing Organization Address [facility] Phone Number [facility] [place] [address] * (ABNORMAL) APTT (07/22/2017 8:30 AM EDT) [facility] Partial Thromboplastin Time 83(H) 25 - 35 sec [facility] Comment: The recommended therapeutic range for full dose, unfractionated heparin at [facility] is 80 ? 114 seconds. The use of the anti-Xa (heparin) level rather than the PTT is recommended for monitoring anticoagulation intensity in critically ill patients receiving unfractionated heparin by continuous IV infusion. Blood specimen (specimen) 07/22/2017 8:30 AM EDT 07/22/2017 8:39 AM EDT Narrative Resulting Agency Comment Spec In Lab Sriram Contreras MD HEMATOLOGY ORDERAB LES Performing Organization Address [facility] de Phone Number [facility] [place] [address] * POCT Glucose (07/22/2017 8:28 AM EDT) Glucose, POC 118 65 - 199 mg/dL [facility] Comment: Supplemental ranges: <140 mg/dL before meals <180 mg/dL all other times of the day Blood specimen (specimen) 07/22/2017 8:28 AM EDT 07/22/2017 8:28 AM EDT Sriram Contreras MD POINT OF CARE TEST ORDERABLES Performing Organization Address City/State/[facility] Co de Phone Number [facility] [place] [address] * (ABNORMAL) BLOOD GAS 2 ARTERIAL (07/22/2017 8:27 AM EDT) [facility] pH, Arterial 7.42 7.35 - 7.45 [facility] PCO2, Arterial 39 35 - 45 mmHg [facility] PO2, Arterial 78(L) 85 - 104 mmHg [facility] Bicarbonate, Arterial 24.8 20.0 - 26.0 mmol/L [facility] Base Excess, Arterial 0.3 -3.0 - 3.0 mmol/L [facility] Hgb Blood Gas 13.4(L) 13.7 - 16.5 gm/dL [facility] Oxyhemoglobin, Arterial 94.2 94.0 - 97.0 % [facility] Carboxyhemoglob in, Arterial 0.3 % [facility] Comment: Nonsmokers: 0.5-1.5% COHB Smokers: Variable, but usually less than 10% Toxic: 20-30% COHB Lethal: Greater than 60% COHB Methemoglobin, Arterial 0.6 <=1.5 % [facility] Na Whole Blood 140 135 - 145 mmol/L [facility] K Whole Blood 3.8 3.5 - 5.0 mmol/L [facility] Comment: Please note: Patients with WBC >100,000 may have falsely elevated Potassium levels. Contact the Clinical Chemistry Laboratory if there are any questions. ICa Whole Blood 1.21 1.15 - 1.33 mmol/L [facility] Comment: Note: ??Total bilirubin higher than 20 mg/dL may lead to falsely low ionized calcium. CL Whole Blood 107 98 - 107 mmol/L [facility] Gluc Whole Bld 130 65 - 199 mg/dL [facility] Comment:Diabetes: >=200 mg/d L plus symptoms. Lactate WB 1.6 0.5 - 2.2 mmol/L [facility] FIO2 Art 40 % [facility] PF Ratio Art 195 [facility] Blood specimen (specimen) 07/22/2017 8:27 AM EDT 07/22/2017 8:27 AM EDT Sriram Contreras MD POINT OF CARE TEST ORDERABLES Performing Organization Address City/State/[facility] Co de Phone Number [facility] [place] [address] * (ABNORMAL) Differential, Automated (07/22/2017 3:10 AM EDT) Neutrophil % 72.0 % [facility] Neutrophil Absolute 8.75(H) 1.70 - 6.10 x10(3)/mc L [facility] Lymph % 15.0 % [facility] Lymphocytes Abs 1.8 0.9 - 3.2 x10(3)/mc L [facility] Monocyte % 8.0 % [facility] Monocyte Abs 1.0(H) 0.3 - 0.9 x10(3)/mc L [facility] Eos % 2.4 % [facility] Eosinophils Abs 0.3 0.0 - 0.4 x10(3)/mc L [facility] Basophil % 0.3 % [facility] Baso Absolute 0.0 0.0 - 0.1 x10(3)/mc L [facility] Immature Gran % 2.30 % [facility] Comment: Immature granulocytes(IG's)percentage and absolute count will include metamyelocytes, myelocytes, and promyelocytes. Blood smears from CBCs yielding IG's will be scanned manually for concordance. If this scan disagrees with the automated IG or if promyelocytes are noted, a manual differential will be performed. Immature Gran Absolute 0.28(H) 0.00 - 0.04 x10(3)/mc L [facility] Blood specimen (specimen) 07/22/2017 3:10 AM EDT 07/22/2017 3:15 AM EDT Narrative Resulting Agency Comment Spec In Lab Sriram Contreras MD HEMATOLOGY ORDERAB LES [facility] [place] [address] * (ABNORMAL) Hemogram (07/22/2017 3:10 AM EDT) White Blood Cell 12.2(H) 4.0 - 9.5 x10(3)/mc L [facility] Red Blood Cell 4.05(L) 4.58 - 5.54 x10(6)/mc L [facility] Hemoglobin 12.5(L) 13.7 - 16.5 gm/dL [facility] Hematocrit 37.9(L) 40.5 - 48.5 % [facility] Mean Cell Volume 93.6(H) 82.9 - 93.1 fL [facility] Mean Cell Hemoglobin 30.9 27.5 - 32.1 pg [facility] Mean Cell Hemoglobin Concentration 33.0 32.0 - 35.7 gm/dL [facility] Platelet 168 145 - 357 x10(3)/mc L [facility] RDW Standard Deviation 48.9(H) 36.0 - 45.0 fL [facility] RDW coefficient of variation 14.1(H) 11.4 - 13.8 % [facility] Mean Platelet Volume 10.2 7.6 - 12.9 fL [facility] NRBC% auto 0.0 % [facility] NRBC Absolute 0.000 0.000 - 0.000 x10(3)/mc L [facility] Blood specimen (specimen) 07/22/2017 3:10 AM EDT 07/22/2017 3:15 AM EDT Narrative Resulting Agency Comment Spec In Lab Sriram Contreras MD HEMATOLOGY ORDERAB LES Performing Organization Address [facility] Co de Phone Number [facility] [place] [address] * (ABNORMAL) APTT (07/22/2017 3:10 AM EDT) Partial Thromboplastin Time 89(H) 25 - 35 sec [facility] Comment: The recommended therapeutic range for full dose, unfractionated heparin at [facility] is 80 ? 114 seconds. The use of the anti-Xa (heparin) level rather than the PTT is recommended for monitoring anticoagulation intensity in critically ill patients receiving unfractionated heparin by continuous IV infusion. Blood specimen (specimen) 07/22/2017 3:10 AM EDT 07/22/2017 3:15 AM EDT Narrative Resulting Agency Comment Spec In Lab Sriram Contreras MD HEMATOLOGY ORDERAB LES Performing Organization Address [facility] de Phone Number [facility] [place] [address] * (ABNORMAL) Basic Metabolic Panel (non-fasting) (07/22/2017 3:10 AM EDT) Glucose 121 65 - 199 mg/dL [facility] Comment:Diabetes: >=200 mg/d L plus symptoms Blood Urea Nitrogen 23(H) 10 - 20 mg/dL [facility] Creatinine 0.76(L) 0.80 - 1.50 mg/dL [facility] Comment: Please note that the pediatric reference intervals supplied above were not validated at [facility]. Results from pediatric patients should be interpreted in conjunction to the patient's age, height and muscle mass. Sodium 144 135 - 145 mmol/L [facility] Potassium 3.9 3.5 - 5.0 mmol/L [facility] Comment: Please note: ??Patients with WBC >100,000 may have falsely elevated Potassium levels. ??For accurate Potassium quantification in these patients send serum separator tube (gold top) for subsequent determinations. ??Contact the Clinical Chemistry Laboratory if there are any questions. Chloride 106 98 - 107 mmol/L [facility] Carbon Dioxide 25 22 - 31 mmol/L [facility] Anion Gap 13 5 - 15 mmol/L [facility] Calcium 8.3(L) 8.5 - 10.5 mg/dL [facility] Est Glomerular Filtration Rate >60 >=60 [facility] Comment: [...] the following links into your internet browser. [email or web address] Blood specimen (specimen) 07/22/2017 3:10 AM EDT 07/22/2017 3:15 AM EDT Narrative Resulting Agency Comment Spec In Lab Sriram Contreras MD CHEMISTRY ORDERABL ES [facility] [place] [address] * POCT Glucose (07/22/2017 3:08 AM EDT) Glucose, POC 109 65 - 199 mg/dL [facility] Comment: Supplemental ranges: <140 mg/dL before meals <180 mg/dL all other times of the day Blood specimen (specimen) 07/22/2017 3:08 AM EDT 07/22/2017 3:08 AM EDT Sriram Contreras MD POINT OF CARE TEST ORDERABLES Performing Organization Address City/[facility]/ZIP Co de Phone Number [facility] [place] [address] * POCT Glucose (07/21/2017 11:52 PM EDT) Glucose, POC 135 65 - 199 mg/dL [facility] Comment: Supplemental ranges: <140 mg/dL before meals <180 mg/dL all other times of the day Blood specimen (specimen) 07/21/2017 11:52 PM EDT 07/21/2017 11:52 PM EDT Sriram Contreras MD POINT OF CARE TEST ORDERABLES Performing Organization Address [facility] Co de Phone Number [facility] [place] [address] * EKG 12 Lead (07/21/2017 10:42 PM EDT) Ventricular rate 75 BPM MUSE SYSTEM Atrial Rate 258 BPM MUSE SYSTEM QRS Duration 86 ms MUSE SYSTEM Q-T Interval 400 ms MUSE SYSTEM QTC Calculated (Bezet) 446 ms MUSE SYSTEM Calculated R [place] 61 degrees MUSE SYSTEM Calculated T [place] 136 degrees MUSE SYSTEM INTERPRETATION Atrial fibrillation [...] Contreras MD ECG ORDERABLES Performing Organization Address City/[facility] Co de Phone Number MUSE SYSTEM * Magnesium (07/21/2017 10:35 PM EDT) Magnesium 0.80 0.69 - 1.07 mmol/L [facility] Blood specimen (specimen) 07/21/2017 10:35 PM EDT 07/21/2017 10:40 PM EDT Narrative Resulting Agency Comment Spec In Lab Sriram Contreras MD CHEMISTRY ORDERABL ES [facility] [place] [address] * (ABNORMAL) Basic Metabolic Panel (non-fasting) (07/21/2017 10:35 PM EDT) Glucose 135 65 - 199 mg/dL [facility] Comment:Diabetes: >=200 mg/d L plus symptoms Blood Urea Nitrogen 23(H) 10 - 20 mg/dL [facility] Creatinine 0.88 0.80 - 1.50 mg/dL [facility] Comment: Please note that the pediatric reference intervals supplied above were not validated at [facility]. Results from pediatric patients should be interpreted in conjunction to the patient's age, height and muscle mass. Sodium 144 135 - 145 mmol/L [facility] Potassium 4.0 3.5 - 5.0 mmol/L [facility] Comment: Please note: ??Patients with WBC >100,000 may have falsely elevated Potassium levels. ??For accurate Potassium quantification in these patients send serum separator tube (gold top) for subsequent determinations. ??Contact the Clinical Chemistry Laboratory if there are any questions. Chloride 107 98 - 107 mmol/L [facility] Carbon Dioxide 25 22 - 31 mmol/L [facility] Anion Gap 12 5 - 15 mmol/L [facility] Calcium 8.7 8.5 - 10.5 mg/dL [facility] Est Glomerular Filtration Rate >60 >=60 [facility] Comment: [...] the following links into your internet browser. [email or web address] Blood specimen (specimen) 07/21/2017 10:35 PM EDT 07/21/2017 10:40 PM EDT Narrative Resulting Agency Comment Spec In Lab Sriram Contreras MD CHEMISTRY ORDERABL ES Performing Organization Address [facility] Phone Number [facility] [place] [address] * (ABNORMAL) APTT (07/21/2017 9:10 PM EDT) [facility] Partial Thromboplastin Time 87(H) 25 - 35 sec [facility] Comment: The recommended therapeutic range for full dose, unfractionated heparin at [facility] is 80 ? 114 seconds. The use of the anti-Xa (heparin) level rather than the PTT is recommended for monitoring anticoagulation intensity in critically ill patients receiving unfractionated heparin by continuous IV infusion. Blood specimen (specimen) 07/21/2017 9:10 PM EDT 07/21/2017 9:17 PM EDT Narrative Resulting Agency Comment Spec In Lab Sriram Contreras MD HEMATOLOGY ORDERAB LES Performing Organization Address [facility] Phone Number [facility] [place] [address] * POCT Glucose (07/21/2017 7:49 PM EDT) Pathologist [facility] Glucose, POC 117 65 - 199 mg/dL [facility] Comment: Supplemental ranges: <140 mg/dL before meals <180 mg/dL all other times of the day Blood specimen (specimen) 07/21/2017 7:49 PM EDT 07/21/2017 7:49 PM EDT Sriram Contreras MD POINT OF CARE TEST ORDERABLES Performing Organization Address [facility] Phone Number [facility] [place] [address] * POCT Glucose (07/21/2017 4:10 PM EDT) Glucose, POC 116 65 - 199 mg/dL [facility] Comment: Supplemental ranges: <140 mg/dL before meals <180 mg/dL all other times of the day Blood specimen (specimen) 07/21/2017 4:10 PM EDT 07/21/2017 4:10 PM EDT Sriram Contreras MD POINT OF CARE TEST ORDERABLES Performing Organization Address [facility] de Phone Number [facility] [place] [address] * (ABNORMAL) APTT (07/21/2017 4:10 PM EDT) Partial Thromboplastin Time 78(H) 25 - 35 sec [facility] Comment: The recommended therapeutic range for full dose, unfractionated heparin at [facility] is 80 ? 114 seconds. The use of the anti-Xa (heparin) level rather than the PTT is recommended for monitoring anticoagulation intensity in critically ill patients receiving unfractionated heparin by continuous IV infusion. Blood specimen (specimen) 07/21/2017 4:10 PM EDT 07/21/2017 4:28 PM EDT Narrative Resulting Agency Comment Spec In Lab Sriram Contreras MD HEMATOLOGY ORDERAB LES Performing Organization Address [facility] Co de Phone Number [facility] [place] [address] * POCT Glucose (07/21/2017 12:04 PM EDT) Glucose, POC 138 65 - 199 mg/dL [facility] Comment: Supplemental ranges: <140 mg/dL before meals <180 mg/dL all other times of the day Blood specimen (specimen) 07/21/2017 12:04 PM EDT 07/21/2017 12:04 PM EDT Sriram Contreras MD POINT OF CARE TEST ORDERABLES Performing Organization Address [facility] Co de Phone Number [facility] [place] [address] * C. Difficile Screen (07/21/2017 9:00 AM EDT) Pathologist [facility] C Diff Interp Negative Negative [facility] Comment: C. diff ??Negative Clostridium [...] - GEN ERAL ORDERABLES Performing Organization Address [facility] de Phone Number [facility] [place] [address] * Potassium (07/21/2017 8:30 AM EDT) [facility] Potassium 3.8 3.5 - 5.0 mmol/L [facility] Comment: Please note: ??Patients with [...] MD CHEMISTRY ORDERABL ES Performing Organization Address [facility] Co de Phone Number [facility] [place] [address] * (ABNORMAL) APTT (07/21/2017 8:30 AM EDT) Pathologist [facility] Partial Thromboplastin Time 63(H) 25 - 35 sec [facility] Comment: The recommended therapeutic range for full dose, unfractionated heparin at [facility] is 80 ? 114 seconds. The use of the anti-Xa (heparin) level rather than the PTT is recommended for monitoring anticoagulation intensity in critically ill patients receiving unfractionated heparin by continuous IV infusion. Blood specimen (specimen) 07/21/2017 8:30 AM EDT 07/21/2017 8:40 AM EDT Narrative Resulting Agency Comment Spec In Lab Sriram Contreras MD HEMATOLOGY ORDERAB LES Performing Organization Address [facility] Co de Phone Number [facility] [place] [address] * POCT Glucose (07/21/2017 8:24 AM EDT) [facility] Glucose, POC 131 65 - 199 mg/dL [facility] Comment: Supplemental ranges: <140 mg/dL before meals <180 mg/dL all other times of the day Blood specimen (specimen) 07/21/2017 8:24 AM EDT 07/21/2017 8:24 AM EDT Sriram Contreras MD POINT OF CARE TEST ORDERABLES Performing Organization Address [facility] Co de Phone Number [facility] [place] [address] * (ABNORMAL) BLOOD GAS 2 ARTERIAL (07/21/2017 7:42 AM EDT) [facility] pH, Arterial 7.44 7.35 - 7.45 [facility] PCO2, Arterial 37 35 - 45 mmHg [facility] PO2, Arterial 72(L) 85 - 104 mmHg [facility] Bicarbonate, Arterial 24.5 20.0 - 26.0 mmol/L [facility] Base Excess, Arterial 0.3 -3.0 - 3.0 mmol/L [facility] Hgb Blood Gas 14.0 13.7 - 16.5 gm/dL [facility] Oxyhemoglobin, Arterial 93.8(L) 94.0 - 97.0 % [facility] Carboxyhemoglob in, Arterial 0.3 % [facility] Comment: Nonsmokers: 0.5-1.5% COHB Smokers: Variable, but usually less than 10% Toxic: 20-30% COHB Lethal: Greater than 60% COHB Methemoglobin, Arterial 0.5 <=1.5 % [facility] Na Whole Blood 143 135 - 145 mmol/L [facility] K Whole Blood 4.0 3.5 - 5.0 mmol/L [facility] Comment: Please note: Patients with WBC >100,000 may have falsely elevated Potassium levels. Contact the Clinical Chemistry Laboratory if there are any questions. ICa Whole Blood 1.22 1.15 - 1.33 mmol/L [facility] Comment: Note: ??Total bilirubin higher than 20 mg/dL may lead to falsely low ionized calcium. CL Whole Blood 111(H) 98 - 107 mmol/L [facility] Gluc Whole Bld 148 65 - 199 mg/dL [facility] Comment:Diabetes: >=200 mg/d L plus symptoms. Lactate WB 1.5 0.5 - 2.2 mmol/L [facility] FIO2 Art 40 % [facility] PF Ratio Art 180 [facility] Blood specimen (specimen) 07/21/2017 7:42 AM EDT 07/21/2017 7:42 AM EDT Sriram Contreras MD POINT OF CARE TEST ORDERABLES [facility] [place] [address] * POCT Glucose (07/21/2017 3:21 AM EDT) Glucose, POC 116 65 - 199 mg/dL [facility] Comment: Supplemental ranges: <140 mg/dL before meals <180 mg/dL all other times of the day Blood specimen (specimen) 07/21/2017 3:21 AM EDT 07/21/2017 3:21 AM EDT Sriram Contreras MD POINT OF CARE TEST ORDERABLES Performing Organization Address [facility] Co de Phone Number [facility] [place] [address] * Potassium (07/21/2017 3:20 AM EDT) Pathologist [facility] Potassium 4.0 3.5 - 5.0 mmol/L [facility] Comment: Please note: ??Patients with [...] MD CHEMISTRY ORDERABL ES Performing Organization Address [facility] de Phone Number [facility] [place] [address] * (ABNORMAL) APTT (07/21/2017 1:05 AM EDT) Partial Thromboplastin Time 42(H) 25 - 35 sec [facility] Comment: The recommended therapeutic range for full dose, unfractionated heparin at [facility] is 80 ? 114 seconds. The use of the anti-Xa (heparin) level rather than the PTT is recommended for monitoring anticoagulation intensity in critically ill patients receiving unfractionated heparin by continuous IV infusion. Blood specimen (specimen) 07/21/2017 1:05 AM EDT 07/21/2017 1:08 AM EDT Narrative Resulting Agency Comment Spec In Lab Sriram Contreras MD HEMATOLOGY ORDERAB LES Performing Organization Address [facility] Co de Phone Number [facility] [place] [address] * (ABNORMAL) Differential, Automated (07/21/2017 12:25 AM EDT) Neutrophil % 75.8 % [facility] Neutrophil Absolute 7.59(H) 1.70 - 6.10 x10(3)/ L [facility] Lymph % 12.8 % [facility] Lymphocytes Abs 1.3 0.9 - 3.2 x10(3)/ L [facility] Monocyte % 9.0 % [facility] Monocyte Abs 0.9 0.3 - 0.9 x10(3)/[facility]ORATORY Eos % 1.1 % [facility] Eosinophils Abs 0.1 0.0 - 0.4 x10(3)/[facility] Basophil % 0.3 % [facility] Baso Absolute 0.0 0.0 - 0.1 x10(3)/[facility] Immature Gran % 1.00 % [facility] Comment: Immature granulocytes(IG's)percentage and absolute count will include metamyelocytes, myelocytes, and promyelocytes. Blood smears from CBCs yielding IG's will be scanned manually for concordance. If this scan disagrees with the automated IG or if promyelocytes are noted, a manual differential will be performed. Immature Gran Absolute 0.10(H) 0.00 - 0.04 x10(3)/[facility] Blood specimen (specimen) 07/21/2017 12:25 AM EDT 07/21/2017 12:48 AM EDT Narrative Resulting Agency Comment Spec In Lab Sriram Contreras MD HEMATOLOGY ORDERAB LES [facility] [place] [address] * (ABNORMAL) Hemogram (07/21/2017 12:25 AM EDT) White Blood Cell 10.0(H) 4.0 - 9.5 x10(3)/mc L [facility] Red Blood Cell 4.24(L) 4.58 - 5.54 x10(6)/mc L [facility] Hemoglobin 13.2(L) 13.7 - 16.5 gm/dL [facility] Hematocrit 39.4(L) 40.5 - 48.5 % [facility] Mean Cell Volume 92.9 82.9 - 93.1 fL [facility] Mean Cell Hemoglobin 31.1 27.5 - 32.1 pg [facility] Mean Cell Hemoglobin Concentration 33.5 32.0 - 35.7 gm/dL [facility] Platelet 163 145 - 357 x10(3)/[facility] LABORATORY RDW Standard Deviation 48.0(H) 36.0 - 45.0 [facility] LABORATORY RDW coefficient of variation 14.1(H) 11.4 - 13.8 % [facility] Mean Platelet Volume 10.2 7.6 - 12.9 [facility] LABORATORY NRBC% auto 0.0 % [facility] NRBC Absolute 0.000 0.000 - 0.000 x10(3)/[facility] Blood specimen (specimen) 07/21/2017 12:25 AM EDT 07/21/2017 12:48 AM EDT Narrative Resulting Agency Comment Spec In Lab Sriram Contreras MD HEMATOLOGY ORDERAB LES [facility] [place] [address] * (ABNORMAL) Basic Metabolic Panel (non-fasting) (07/21/2017 12:25 AM EDT) Glucose 132 65 - 199 mg/dL [facility] Comment:Diabetes: >=200 mg/d L plus symptoms Blood Urea Nitrogen 22(H) 10 - 20 mg/dL [facility] Creatinine 0.79(L) 0.80 - 1.50 mg/dL [facility] Comment: Please note that the pediatric reference intervals supplied above were not validated at [facility]. Results from pediatric patients should be interpreted in conjunction to the patient's age, height and muscle mass. Sodium 146(H) 135 - 145 mmol/L [facility] Potassium 3.8 3.5 - 5.0 mmol/L [facility] Comment: Please note: ??Patients with WBC >100,000 may have falsely elevated Potassium levels. ??For accurate Potassium quantification in these patients send serum separator tube (gold top) for subsequent determinations. ??Contact the Clinical Chemistry Laboratory if there are any questions. Chloride 110(H) 98 - 107 mmol/L [facility] Carbon Dioxide 25 22 - 31 mmol/L [facility] Anion Gap 11 5 - 15 mmol/L [facility] Calcium 8.5 8.5 - 10.5 mg/dL [facility] Est Glomerular Filtration Rate >60 >=60 [facility] Comment: [...] the following links into your internet browser. [email or web address] Blood specimen (specimen) 07/21/2017 12:25 AM EDT 07/21/2017 12:48 AM EDT Narrative Resulting Agency Comment Spec In Lab Sriram Contreras MD CHEMISTRY ORDERABL ES [facility] [place] [address] * (ABNORMAL) BLOOD GAS 2 ARTERIAL (07/21/2017 12:21 AM EDT) pH, Arterial 7.44 7.35 - 7.45 [facility] PCO2, Arterial 37 35 - 45 mmHg [facility] PO2, Arterial 70(L) 85 - 104 mmHg [facility] Bicarbonate, Arterial 24.1 20.0 - 26.0 mmol/L [facility] Base Excess, Arterial 0.1 -3.0 - 3.0 mmol/L [facility] Hgb Blood Gas 14.3 13.7 - 16.5 gm/dL [facility] Oxyhemoglobin, Arterial 92.8(L) 94.0 - 97.0 % [facility] Carboxyhemoglob in, Arterial 0.0 % [facility] Comment: Nonsmokers: 0.5-1.5% COHB Smokers: Variable, but usually less than 10% Toxic: 20-30% COHB Lethal: Greater than 60% COHB Methemoglobin, Arterial 0.4 <=1.5 % [facility] Na Whole Blood 145 135 - 145 mmol/L [facility] K Whole Blood 3.9 3.5 - 5.0 mmol/L [facility] Comment: Please note: Patients with WBC >100,000 may have falsely elevated Potassium levels. Contact the Clinical Chemistry Laboratory if there are any questions. ICa Whole Blood 1.21 1.15 - 1.33 mmol/L [facility] Comment: Note: ??Total bilirubin higher than 20 mg/dL may lead to falsely low ionized calcium. CL Whole Blood 110(H) 98 - 107 mmol/L [facility] Gluc Whole Bld 132 65 - 199 mg/dL [facility] Comment:Diabetes: >=200 mg/d L plus symptoms. Lactate WB 1.1 0.5 - 2.2 mmol/L [facility] FIO2 Art 40 % [facility] PF Ratio Art 175 [facility] Temp Art 37.8 Celsius [facility] Blood specimen (specimen) 07/21/2017 12:21 AM EDT 07/21/2017 12:21 AM EDT Sriram Contreras MD POINT OF CARE TEST ORDERABLES Performing Organization Address [facility] de Phone Number [facility] [place] [address] * POCT Glucose (07/21/2017 12:00 AM EDT) [facility] Glucose, POC 119 65 - 199 mg/dL [facility] Comment: Supplemental ranges: <140 mg/dL before meals <180 mg/dL all other times of the day Blood specimen (specimen) 07/21/2017 07/21/2017 Sriram Contreras MD POINT OF CARE TEST ORDERABLES Performing Organization Address [facility] de Phone Number [facility] [place] [address] * Potassium (07/20/2017 9:50 PM EDT) [facility] Potassium 4.1 3.5 - 5.0 mmol/L [facility] Comment: Please note: ??Patients with [...] ORDERABL ES Performing Organization Address [facility] Co de Phone Number [facility] [place] [address] * EKG 12 Lead (07/20/2017 8:40 PM EDT) [facility] Ventricular rate 77 BPM MUSE SYSTEM Atrial Rate 394 BPM MUSE SYSTEM QRS Duration 86 ms MUSE SYSTEM Q-T Interval 396 ms MUSE SYSTEM QTC Calculated (Bezet) 448 ms MUSE SYSTEM Calculated R [place] 73 degrees MUSE SYSTEM Calculated T [place] 127 degrees MUSE SYSTEM INTERPRETATION Atrial fibrillation Nonspecific ST abnormality Abnormal ECG When compared with ECG of 19-JUL-2017 16:55, Nonspecific T wave abnormality no longer evident in Inferior leads T wave inversion now evident in Lateral leads Confirmed by MD MONTANO ALAN ([id number]) on 07/21/2017 8:04:57 PM MUSE SYSTEM 07/20/2017 8:40 PM EDT 07/21/2017 8:04 PM EDT Biju Aguero APRN ECG ORDERABLES MUSE SYSTEM * POCT Glucose (07/20/2017 7:28 PM EDT) [facility] Glucose, POC 126 65 - 199 mg/dL [facility] Comment: Supplemental ranges: <140 mg/dL before meals <180 mg/dL all other times of the day Blood specimen (specimen) 07/20/2017 7:28 PM EDT 07/20/2017 7:28 PM EDT Sriram Contreras MD POINT OF CARE TEST ORDERABLES Performing Organization Address City/[facility] Co de Phone Number [facility] [place] [address] * (ABNORMAL) Differential, Automated (07/20/2017 5:15 PM EDT) [facility] Neutrophil % 79.7 % [facility] Neutrophil Absolute 8.01(H) 1.70 - 6.10 x10(3)/mc L [facility] Lymph % 10.4 % [facility] Lymphocytes Abs 1.0 0.9 - 3.2 x10(3)/mc L [facility] Monocyte % 8.0 % [facility] Monocyte Abs 0.8 0.3 - 0.9 x10(3)/mc L [facility] Eos % 0.7 % [facility] Eosinophils Abs 0.1 0.0 - 0.4 x10(3)/mc L [facility] Basophil % 0.2 % [facility] Baso Absolute 0.0 0.0 - 0.1 x10(3)/ L [facility] Immature Gran % 1.00 % [facility] Comment: Immature granulocytes(IG's)percentage and absolute count will include metamyelocytes, myelocytes, and promyelocytes. Blood smears from CBCs yielding IG's will be scanned manually for concordance. If this scan disagrees with the automated IG or if promyelocytes are noted, a manual differential will be performed. Immature Gran Absolute 0.10(H) 0.00 - 0.04 x10(3)/ L [facility] Blood specimen (specimen) 07/20/2017 5:15 PM EDT 07/20/2017 5:26 PM EDT Narrative Resulting Agency Comment Spec In Lab Sriram Contreras MD HEMATOLOGY ORDERAB LES Performing Organization Address City/State/[facility] Co de Phone Number [facility] [place] [address] * (ABNORMAL) Hemogram (07/20/2017 5:15 PM EDT) White Blood Cell 10.0(H) 4.0 - 9.5 x10(3)/ L [facility] Red Blood Cell 4.28(L) 4.58 - 5.54 x10(6)/ L [facility] Hemoglobin 13.3(L) 13.7 - 16.5 gm/dL [facility] Hematocrit 39.9(L) 40.5 - 48.5 % [facility] Mean Cell Volume 93.2(H) 82.9 - 93.1 fL [facility] Mean Cell Hemoglobin 31.1 27.5 - 32.1 pg [facility] Mean Cell Hemoglobin Concentration 33.3 32.0 - 35.7 gm/dL [facility] Platelet 163 145 - 357 x10(3)/ L [facility] RDW Standard Deviation 47.7(H) 36.0 - 45.0 [facility] RDW coefficient of variation 14.1(H) 11.4 - 13.8 % [facility] Mean Platelet Volume 10.1 7.6 - 12.9 fL [facility] NRBC% auto 0.0 % [facility] NRBC Absolute 0.000 0.000 - 0.000 x10(3)/mc L [facility] Blood specimen (specimen) 07/20/2017 5:15 PM EDT 07/20/2017 5:26 PM EDT Narrative Resulting Agency Comment Spec In Lab Sriram Contreras MD HEMATOLOGY ORDERAB LES Performing Organization Address [facility] de Phone Number [facility] [place] [address] * APTT (07/20/2017 5:15 PM EDT) Partial Thromboplastin Time 28 25 - 35 sec [facility] Comment: The recommended therapeutic range for full dose, unfractionated heparin at [facility] is 80 ? 114 seconds. The use of the anti-Xa (heparin) level rather than the PTT is recommended for monitoring anticoagulation intensity in critically ill patients receiving unfractionated heparin by continuous IV infusion. Blood specimen (specimen) 07/20/2017 5:15 PM EDT 07/20/2017 5:26 PM EDT Narrative Resulting Agency Comment Spec In Lab Sriram Contreras MD HEMATOLOGY ORDERAB LES Performing Organization Address [facility] Co de Phone Number [facility] [place] [address] * Magnesium (07/20/2017 4:50 PM EDT) Magnesium 1.00 0.69 - 1.07 mmol/L [facility] Blood specimen (specimen) 07/20/2017 4:50 PM EDT 07/20/2017 5:10 PM EDT Narrative Resulting Agency Comment Spec In Lab Sylvia Vaughn MD CHEMISTRY ORDERABLES [facility] [place] [address] * (ABNORMAL) Basic Metabolic Panel (non-fasting) (07/20/2017 4:50 PM EDT) Glucose 143 65 - 199 mg/dL [facility] Comment:Diabetes: >=200 mg/d L plus symptoms Blood Urea Nitrogen 23(H) 10 - 20 mg/dL [facility] Creatinine 0.85 0.80 - 1.50 mg/dL [facility] Comment: Please note that the pediatric reference intervals supplied above were not validated at [facility]. Results from pediatric patients should be interpreted in conjunction to the patient's age, height and muscle mass. Sodium 146(H) 135 - 145 mmol/L [facility] Potassium 3.9 3.5 - 5.0 mmol/L [facility] Comment: Please note: ??Patients with WBC >100,000 may have falsely elevated Potassium levels. ??For accurate Potassium quantification in these patients send serum separator tube (gold top) for subsequent determinations. ??Contact the Clinical Chemistry Laboratory if there are any questions. Chloride 110(H) 98 - 107 mmol/L [facility] Carbon Dioxide 25 22 - 31 mmol/L [facility] Anion Gap 11 5 - 15 mmol/L [facility] Calcium 8.5 8.5 - 10.5 mg/dL [facility] Est Glomerular Filtration Rate >60 >=60 [facility] Comment: [...] the following links into your internet browser. [email or web address] Blood specimen (specimen) 07/20/2017 4:50 PM EDT 07/20/2017 5:10 PM EDT Narrative Resulting Agency Comment Spec In Lab Sylvia Vaughn MD CHEMISTRY ORDERABLES Performing Organization Address City/[facility]/ZIP Co de Phone Number [facility] [place] [address] * POCT Glucose (07/20/2017 3:41 PM EDT) Glucose, POC 138 65 - 199 mg/dL [facility] Comment: Supplemental ranges: <140 mg/dL before meals <180 mg/dL all other times of the day Blood specimen (specimen) 07/20/2017 3:41 PM EDT 07/20/2017 3:41 PM EDT Sriram Contreras MD POINT OF CARE TEST ORDERABLES Performing Organization Address [facility] Co de Phone Number [facility] [place] [address] * CTA Chest for Pulmonary Embolus w [...] suggestive of normal upper respiratory yung (A) [facility] Gram Stain Many White Blood Cells seen Few squamous epithelial cells seen Many Gram Negative Rods seen Many mixed bacterial morphotypes suggestive of normal upper respiratory yung (A) [facility] Organism Enterobacter aerogenes(A) [facility] Organism Gram Negative Rods(A) [facility] Specimen from trachea obtained by [...] Contreras MD MICROBIOLOGY - GEN ERAL ORDERABLES [facility] [place] [address] * POCT Glucose (07/20/2017 11:45 AM EDT) Glucose, POC 125 65 - 199 mg/dL [facility] Comment: Supplemental ranges: <140 mg/dL before meals <180 mg/dL all other times of the day Blood specimen (specimen) 07/20/2017 11:45 AM EDT 07/20/2017 11:45 AM EDT Sriram Contreras MD POINT OF CARE TEST ORDERABLES Performing Organization Address City/State/[facility] Co de Phone Number [facility] [place] [address] * (ABNORMAL) BLOOD GAS 2 ARTERIAL (07/20/2017 11:43 AM EDT) pH, Arterial 7.45 7.35 - 7.45 [facility] PCO2, Arterial 35 35 - 45 mmHg [facility] PO2, Arterial 57(L) 85 - 104 mmHg [facility] Bicarbonate, Arterial 23.9 20.0 - 26.0 mmol/L [facility] Base Excess, Arterial 0.1 -3.0 - 3.0 mmol/L [facility] Hgb Blood Gas 14.6 13.7 - 16.5 gm/dL [facility] Oxyhemoglobin, Arterial 89.5(L) 94.0 - 97.0 % [facility] Carboxyhemoglob in, Arterial 0.0 % [facility] Comment: Nonsmokers: 0.5-1.5% COHB Smokers: Variable, but usually less than 10% Toxic: 20-30% COHB Lethal: Greater than 60% COHB Methemoglobin, Arterial 0.5 <=1.5 % [facility] Na Whole Blood 145 135 - 145 mmol/L [facility] K Whole Blood 3.9 3.5 - 5.0 mmol/L [facility] Comment: Please note: Patients with WBC >100,000 may have falsely elevated Potassium levels. Contact the Clinical Chemistry Laboratory if there are any questions. ICa Whole Blood 1.23 1.15 - 1.33 mmol/L [facility] Comment: Note: ??Total bilirubin higher than 20 mg/dL may lead to falsely low ionized calcium. CL Whole Blood 110(H) 98 - 107 mmol/L [facility] Gluc Whole Bld 136 65 - 199 mg/dL [facility] Comment:Diabetes: >=200 mg/d L plus symptoms. Lactate WB 1.3 0.5 - 2.2 mmol/L [facility] FIO2 Art 35 % [facility] PF Ratio Art 163 [facility] Temp Art 37.6 Celsius [facility] Blood specimen (specimen) 07/20/2017 11:43 AM EDT 07/20/2017 11:43 AM EDT Sriram Contreras MD POINT OF CARE TEST ORDERABLES Performing Organization Address [facility] [place] [address] * Potassium (07/20/2017 10:15 AM EDT) Potassium 4.1 3.5 - 5.0 mmol/L [facility] Comment: Please note: ??Patients with [...] MD CHEMISTRY ORDERABL ES Performing Organization Address [facility] Co de Phone Number [facility] [place] [address] * XR Chest PA or AP 1 [...] hypoxic respiratory failure Location of Procedure: ICU [facility]. Risks and Benefits: The risks and [...] * POCT Glucose (07/20/2017 7:29 AM EDT) Glucose, POC 134 65 - 199 mg/dL [facility] Comment: Supplemental ranges: <140 mg/dL before meals <180 mg/dL all other times of the day Blood specimen (specimen) 07/20/2017 7:29 AM EDT 07/20/2017 7:29 AM EDT Sriram Contreras MD POINT OF CARE TEST ORDERABLES [facility] [place] [address] * Potassium (07/20/2017 7:28 AM EDT) Pathologist [facility] Potassium 4.0 3.5 - 5.0 mmol/L [facility] Comment: Please note: ??Patients with [...] Lab Sriram Contreras MD CHEMISTRY ORDERABL ES [facility] [place] [address] * (ABNORMAL) Differential, Automated (07/20/2017 3:15 AM EDT) Pathologist [facility] Neutrophil % 83.6 % [facility] Neutrophil Absolute 8.93(H) 1.70 - 6.10 x10(3)/mc L [facility] Lymph % 9.1 % [facility] Lymphocytes Abs 1.0 0.9 - 3.2 x10(3)/mc L [facility] Monocyte % 6.3 % [facility] Monocyte Abs 0.7 0.3 - 0.9 x10(3)/mc L [facility] Eos % 0.1 % [facility] Eosinophils Abs 0.0 0.0 - 0.4 x10(3)/mc L [facility] Basophil % 0.2 % [facility] Baso Absolute 0.0 0.0 - 0.1 x10(3)/mc L [facility] Immature Gran % 0.70 % [facility] Comment: Immature granulocytes(IG's)percentage and absolute count will include metamyelocytes, myelocytes, and promyelocytes. Blood smears from CBCs yielding IG's will be scanned manually for concordance. If this scan disagrees with the automated IG or if promyelocytes are noted, a manual differential will be performed. Immature Gran Absolute 0.07(H) 0.00 - 0.04 x10(3)/ L [facility] Blood specimen (specimen) 07/20/2017 3:15 AM EDT 07/20/2017 3:58 AM EDT Narrative Resulting Agency Comment Spec In Lab Sriram Contreras MD HEMATOLOGY ORDERAB LES Performing Organization Address City/State/[facility] Co de Phone Number [facility] [place] [address] * (ABNORMAL) Hemogram (07/20/2017 3:15 AM EDT) White Blood Cell 10.7(H) 4.0 - 9.5 x10(3)/[facility] Red Blood Cell 4.40(L) 4.58 - 5.54 x10(6)/[facility] Hemoglobin 13.7 13.7 - 16.5 gm/dL [facility] Hematocrit 39.6(L) 40.5 - 48.5 % [facility] Mean Cell Volume 90.0 82.9 - 93.1 [facility] Mean Cell Hemoglobin 31.1 27.5 - 32.1 pg [facility] Mean Cell Hemoglobin Concentration 34.6 32.0 - 35.7 gm/dL [facility] Platelet 186 145 - 357 x10(3)/[facility] RDW Standard Deviation 45.8(H) 36.0 - 45.0 [facility] RDW coefficient of variation 13.9(H) 11.4 - 13.8 % [facility] Mean Platelet Volume 9.9 7.6 - 12.9 [facility] NRBC% auto 0.0 % [facility] NRBC Absolute 0.000 0.000 - 0.000 x10(3)/ L [facility] Blood specimen (specimen) 07/20/2017 3:15 AM EDT 07/20/2017 3:58 AM EDT Narrative Resulting Agency Comment Spec In Lab Sriram Contreras MD HEMATOLOGY ORDERAB LES [facility] [place] [address] * (ABNORMAL) Basic Metabolic Panel (non-fasting) (07/20/2017 3:15 AM EDT) Glucose 126 65 - 199 mg/dL [facility] Comment:Diabetes: >=200 mg/d L plus symptoms Blood Urea Nitrogen 23(H) 10 - 20 mg/dL [facility] Creatinine 0.97 0.80 - 1.50 mg/dL [facility] Comment: Please note that the pediatric reference intervals supplied above were not validated at [facility]. Results from pediatric patients should be interpreted in conjunction to the patient's age, height and muscle mass. Sodium 143 135 - 145 mmol/L [facility] Potassium 3.9 3.5 - 5.0 mmol/L [facility] Comment: Please note: ??Patients with WBC >100,000 may have falsely elevated Potassium levels. ??For accurate Potassium quantification in these patients send serum separator tube (gold top) for subsequent determinations. ??Contact the Clinical Chemistry Laboratory if there are any questions. Chloride 106 98 - 107 mmol/L [facility] Carbon Dioxide 23 22 - 31 mmol/L [facility] Anion Gap 14 5 - 15 mmol/L [facility] Calcium 8.5 8.5 - 10.5 mg/dL [facility] Est Glomerular Filtration Rate >60 >=60 [facility] Comment: [...] the following links into your internet browser. [email or web address] Blood specimen (specimen) 07/20/2017 3:15 AM EDT 07/20/2017 3:58 AM EDT Narrative Resulting Agency Comment Spec In Lab Sriram Contreras MD CHEMISTRY ORDERABL ES Performing Organization Address [facility] de Phone Number [facility] [place] [address] * POCT Glucose (07/20/2017 3:13 AM EDT) Pathologist [facility] Glucose, POC 114 65 - 199 mg/dL [facility] Comment: Supplemental ranges: <140 mg/dL before meals <180 mg/dL all other times of the day Blood specimen (specimen) 07/20/2017 3:13 AM EDT 07/20/2017 3:13 AM EDT Sriram Contreras MD POINT OF CARE TEST ORDERABLES Performing Organization Address [facility] Phone Number [facility] [place] [address] * (ABNORMAL) BLOOD GAS 2 ARTERIAL (07/19/2017 11:36 PM EDT) pH, Arterial 7.51(H) 7.35 - 7.45 [facility] PCO2, Arterial 29(L) 35 - 45 mmHg [facility] PO2, Arterial 77(L) 85 - 104 mmHg [facility] Bicarbonate, Arterial 22.2 20.0 - 26.0 mmol/L [facility] Base Excess, Arterial -0.8 -3.0 - 3.0 mmol/L [facility] Hgb Blood Gas 14.7 13.7 - 16.5 gm/dL [facility] Oxyhemoglobin, Arterial 94.7 94.0 - 97.0 % [facility] Carboxyhemoglob in, Arterial 0.3 % [facility] Comment: Nonsmokers: 0.5-1.5% COHB Smokers: Variable, but usually less than 10% Toxic: 20-30% COHB Lethal: Greater than 60% COHB Methemoglobin, Arterial 0.7 <=1.5 % [facility] Na Whole Blood 142 135 - 145 mmol/L [facility] K Whole Blood 3.8 3.5 - 5.0 mmol/L [facility] Comment: Please note: Patients with WBC >100,000 may have falsely elevated Potassium levels. Contact the Clinical Chemistry Laboratory if there are any questions. ICa Whole Blood 1.19 1.15 - 1.33 mmol/L [facility] Comment: Note: ??Total bilirubin higher than 20 mg/dL may lead to falsely low ionized calcium. CL Whole Blood 109(H) 98 - 107 mmol/L [facility] Gluc Whole Bld 125 65 - 199 mg/dL [facility] Comment:Diabetes: >=200 mg/d L plus symptoms. Lactate WB 1.6 0.5 - 2.2 mmol/L [facility] FIO2 Art 50 % [facility] PF Ratio Art 154 [facility] Blood specimen (specimen) 07/19/2017 11:36 PM EDT 07/19/2017 11:36 PM EDT Sriram Contreras MD POINT OF CARE TEST ORDERABLES [facility] [place] [address] * POCT Glucose (07/19/2017 11:31 PM EDT) Glucose, POC 110 65 - 199 mg/dL [facility] Comment: Supplemental ranges: <140 mg/dL before meals <180 mg/dL all other times of the day Blood specimen (specimen) 07/19/2017 11:31 PM EDT 07/19/2017 11:31 PM EDT Sriram Contreras MD POINT OF CARE TEST ORDERABLES Performing Organization Address [facility] Co de Phone Number [facility] [place] [address] * Potassium (07/19/2017 11:30 PM EDT) Potassium 3.9 3.5 - 5.0 mmol/L [facility] Comment: Please note: ??Patients with [...] ORDERABL ES Performing Organization Address [facility] Co de Phone Number [facility] [place] [address] * POCT Glucose (07/19/2017 7:45 PM EDT) Glucose, POC 100 65 - 199 mg/dL [facility] Comment: Supplemental ranges: <140 mg/dL before meals <180 mg/dL all other times of the day Blood specimen (specimen) 07/19/2017 7:45 PM EDT 07/19/2017 7:45 PM EDT Sriram Contreras MD POINT OF CARE TEST ORDERABLES Performing Organization Address [facility]/ZIP Co de Phone Number [facility] [place] [address] * Blood culture (07/19/2017 7:00 PM EDT) Blood Culture No growth at 5 days. [facility] Blood specimen (specimen) STRUCTURE OF LEFT WRIST REGION / Unknown 07/19/2017 7:00 PM EDT 07/19/2017 7:50 PM EDT Narrative Resulting Agency Comment Spec In Lab Sriram Contreras MD MICROBIOLOGY - BLO OD ORDERABLES Performing Organization Address City/[facility]/ZIP Co de Phone Number [facility] [place] [address] * Blood culture (07/19/2017 6:50 PM EDT) Blood Culture No growth at 5 days. [facility] Blood specimen (specimen) STRUCTURE OF RIGHT WRIST REGION / Unknown 07/19/2017 6:50 PM EDT 07/19/2017 7:51 PM EDT Narrative Resulting Agency Comment Spec In Lab Sriram Contreras MD MICROBIOLOGY - BLO OD ORDERABLES Performing Organization Address [facility] Co de Phone Number [facility] [place] [address] * XR Chest PA or AP 1 [...] EDT) pH, Arterial 7.49(H) 7.35 - 7.45 [facility] PCO2, Arterial 32(L) 35 - 45 mmHg [facility] PO2, Arterial 66(L) 85 - 104 mmHg [facility] Bicarbonate, Arterial 23.2 20.0 - 26.0 mmol/L [facility] Base Excess, Arterial -0.2 -3.0 - 3.0 mmol/L [facility] Hgb Blood Gas 15.5 13.7 - 16.5 gm/dL [facility] Oxyhemoglobin, Arterial 93.1(L) 94.0 - 97.0 % [facility] Carboxyhemoglob in, Arterial 0.4 % [facility] Comment: Nonsmokers: 0.5-1.5% COHB Smokers: Variable, but usually less than 10% Toxic: 20-30% COHB Lethal: Greater than 60% COHB Methemoglobin, Arterial 0.6 <=1.5 % [facility] Na Whole Blood 158(H) 135 - 145 mmol/L [facility] K Whole Blood 4.0 3.5 - 5.0 mmol/L [facility] Comment: Please note: Patients with WBC >100,000 may have falsely elevated Potassium levels. Contact the Clinical Chemistry Laboratory if there are any questions. ICa Whole Blood 1.14(L) 1.15 - 1.33 mmol/L [facility] Comment: Note: ??Total bilirubin higher than 20 mg/dL may lead to falsely low ionized calcium. CL Whole Blood 120(H) 98 - 107 mmol/L [facility] Gluc Whole Bld 116 65 - 199 mg/dL [facility] Comment:Diabetes: >=200 mg/d L plus symptoms. Lactate WB 1.6 0.5 - 2.2 mmol/L [facility] FIO2 Art 100 % [facility] PF Ratio Art 66 [facility] Blood specimen (specimen) 07/19/2017 5:12 PM EDT 07/19/2017 5:12 PM EDT Sriram Contreras MD POINT OF CARE TEST ORDERABLES Performing Organization Address [facility] Co de Phone Number [facility] [place] [address] * EKG 12 Lead (07/19/2017 4:55 PM EDT) Ventricular rate 85 BPM MUSE SYSTEM Atrial Rate 326 BPM MUSE SYSTEM QRS Duration 92 ms MUSE SYSTEM Q-T Interval 388 ms MUSE SYSTEM QTC Calculated (Bezet) 461 ms MUSE SYSTEM Calculated R [place] 65 degrees MUSE SYSTEM Calculated T [place] 4 degrees MUSE SYSTEM INTERPRETATION Atrial fibrillation [...] Contreras MD ECG ORDERABLES Performing Organization Address [facility] Co de Phone Number MUSE SYSTEM * Phosphorus (07/19/2017 4:50 PM EDT) Phosphorus 3.0 2.5 - 4.5 mg/dL [facility] Blood specimen (specimen) 07/19/2017 4:50 PM EDT 07/19/2017 5:05 PM EDT Narrative Resulting Agency Comment Spec In Lab Sriram Contreras MD CHEMISTRY ORDERABL ES Performing Organization Address City/[facility]/ZIP Co de Phone Number [facility] [place] [address] * (ABNORMAL) Basic Metabolic Panel (non-fasting) (07/19/2017 4:50 PM EDT) Glucose 118 65 - 199 mg/dL [facility] Comment:Diabetes: >=200 mg/d L plus symptoms Blood Urea Nitrogen 19 10 - 20 mg/dL [facility] Creatinine 0.79(L) 0.80 - 1.50 mg/dL [facility] Comment: Please note that the pediatric reference intervals supplied above were not validated at [facility]. Results from pediatric patients should be interpreted in conjunction to the patient's age, height and muscle mass. Sodium 144 135 - 145 mmol/L [facility] Potassium 3.5 3.5 - 5.0 mmol/L [facility] Comment: Please note: ??Patients with WBC >100,000 may have falsely elevated Potassium levels. ??For accurate Potassium quantification in these patients send serum separator tube (gold top) for subsequent determinations. ??Contact the Clinical Chemistry Laboratory if there are any questions. Chloride 106 98 - 107 mmol/L [facility] Carbon Dioxide 23 22 - 31 mmol/L [facility] Anion Gap 15 5 - 15 mmol/L [facility] Calcium 8.7 8.5 - 10.5 mg/dL [facility] Est Glomerular Filtration Rate >60 >=60 [facility] Comment: [...] the following links into your internet browser. [email or web address] Blood specimen (specimen) 07/19/2017 4:50 PM EDT 07/19/2017 5:05 PM EDT Narrative Resulting Agency Comment Spec In Lab Sriram Contreras MD CHEMISTRY ORDERABL ES Performing Organization Address [facility] Co de Phone Number [facility] [place] [address] * Magnesium (07/19/2017 4:50 PM EDT) Magnesium 0.86 0.69 - 1.07 mmol/L [facility] Blood specimen (specimen) 07/19/2017 4:50 PM EDT 07/19/2017 5:05 PM EDT Narrative Resulting Agency Comment Spec In Lab Sriram Contreras MD CHEMISTRY ORDERABL ES Performing Organization Address [facility] de Phone Number [facility] [place] [address] * POCT Glucose (07/19/2017 3:37 PM EDT) Glucose, POC 101 65 - 199 mg/dL [facility] Comment: Supplemental ranges: <140 mg/dL before meals <180 mg/dL all other times of the day Blood specimen (specimen) 07/19/2017 3:37 PM EDT 07/19/2017 3:37 PM EDT Sriram Contreras MD POINT OF CARE TEST ORDERABLES Performing Organization Address [facility] Co de Phone Number [facility] [place] [address] * XR Chest PA or AP 1 [...] Glucose, POC 100 65 - 199 mg/dL [facility] Comment: Supplemental ranges: <140 mg/dL before meals <180 mg/dL all other times of the day Blood specimen (specimen) 07/19/2017 12:36 PM EDT 07/19/2017 12:36 PM EDT Sriram Contreras MD POINT OF CARE TEST ORDERABLES [facility] [place] [address] * Potassium (07/19/2017 12:30 PM EDT) Potassium 3.7 3.5 - 5.0 mmol/L [facility] Comment: Please note: ??Patients with [...] Lab Sriram Contreras MD CHEMISTRY ORDERABL ES [facility] [place] [address] * (ABNORMAL) BLOOD GAS 2 ARTERIAL (07/19/2017 12:17 PM EDT) pH, Arterial 7.50(H) 7.35 - 7.45 [facility] PCO2, Arterial 32(L) 35 - 45 mmHg [facility] PO2, Arterial 60(L) 85 - 104 mmHg [facility] Bicarbonate, Arterial 23.7 20.0 - 26.0 mmol/L [facility] Base Excess, Arterial 0.5 -3.0 - 3.0 mmol/L [facility] Hgb Blood Gas 14.8 13.7 - 16.5 gm/dL [facility] Oxyhemoglobin, Arterial 91.1(L) 94.0 - 97.0 % [facility] Carboxyhemoglob in, Arterial 0.1 % [facility] Comment: Nonsmokers: 0.5-1.5% COHB Smokers: Variable, but usually less than 10% Toxic: 20-30% COHB Lethal: Greater than 60% COHB Methemoglobin, Arterial 0.6 <=1.5 % [facility] Na Whole Blood 145 135 - 145 mmol/L [facility] K Whole Blood 3.7 3.5 - 5.0 mmol/L [facility] Comment: Please note: Patients with WBC >100,000 may have falsely elevated Potassium levels. Contact the Clinical Chemistry Laboratory if there are any questions. ICa Whole Blood 1.16 1.15 - 1.33 mmol/L [facility] Comment: Note: ??Total bilirubin higher than 20 mg/dL may lead to falsely low ionized calcium. CL Whole Blood 109(H) 98 - 107 mmol/L [facility] Gluc Whole Bld 115 65 - 199 mg/dL [facility] Comment:Diabetes: >=200 mg/d L plus symptoms. Lactate WB 1.3 0.5 - 2.2 mmol/L [facility] FIO2 Art 45 % [facility] PF Ratio Art 133 [facility] Blood specimen (specimen) 07/19/2017 12:17 PM EDT 07/19/2017 12:17 PM EDT Sriram Contreras MD POINT OF CARE TEST ORDERABLES Performing Organization Address [facility] Co de Phone Number [facility] [place] [address] * Potassium (07/19/2017 8:50 AM EDT) Potassium 3.8 3.5 - 5.0 mmol/L [facility] Comment: Please note: ??Patients with [...] MD CHEMISTRY ORDERABL ES Performing Organization Address [facility] Co de Phone Number [facility] [place] [address] * Folate, serum (07/19/2017 8:50 AM EDT) Folate 16.6 4.8 - 24.2 ng/mL [facility] Blood specimen (specimen) 07/19/2017 8:50 AM EDT 07/19/2017 9:11 AM EDT Narrative Resulting Agency Comment Spec In Lab Sriram Contreras MD CHEMISTRY ORDERABL ES Performing Organization Address [facility]/ZIP Co de Phone Number [facility] [place] [address] * Vitamin B12 (07/19/2017 8:50 AM EDT) Vitamin B12 468 207 - 974 pg/mL [facility] Blood specimen (specimen) 07/19/2017 8:50 AM EDT 07/19/2017 9:11 AM EDT Narrative Resulting Agency Comment Spec In Lab Sriram Contreras MD CHEMISTRY ORDERABL ES Performing Organization Address City/[facility]/ZIP Co de Phone Number [facility] [place] [address] * (ABNORMAL) TSH (07/19/2017 8:50 AM EDT) Thyroid Stimulating Hormone 6.80(H) 0.27 - 4.20 mlU/ML [facility] Blood specimen (specimen) 07/19/2017 8:50 AM EDT 07/19/2017 9:11 AM EDT Narrative Resulting Agency Comment Spec In Lab Sriram Contreras MD CHEMISTRY ORDERABL ES Performing Organization Address [facility] Co de Phone Number [facility] [place] [address] * Urine Hold (07/19/2017 8:07 AM EDT) Hold, Urine Sample in lab. [facility] Urine specimen (specimen) Urine / Unknown 07/19/2017 8:07 AM EDT 07/19/2017 8:35 AM EDT Sriram Contreras MD URINE ORDERABLES Performing Organization Address City/[facility]/ZIP Co de Phone Number [facility] [place] [address] * (ABNORMAL) Urinalysis with reflex Culture (07/19/2017 8:07 AM EDT) Glucose, Urine Dipstick Negative Negative mg/dL [facility] Protein, Urine Dipstick 30(A) Negative mg/dL [facility] Bilirubin, Urine Dipstick Negative Negative mg/dL [facility] Comment: Clinical correlation required for positive Urine Bilirubin results as false positive may occur with some drugs and drug related products. If a false positive is suspected a serum total bilirubin should be considered if clinically indicated. Urobilinogen, Urine Dipstick >=4.0(A) Normal mg/dL [facility] pH, Urn (dipstick) 7.0 5.0 - 8.0 [facility] Blood, Urine Dipstick Moderate(A) Negative mg/dL [facility] Ketone, Urine Dipstick Negative Negative mg/dL [facility] Nitrite, Urine Dipstick Negative Negative [facility] Leukocytes, Urine Dipstick Trace(A) Negative [facility] Appearance, Urine Dipstick Clear Clear [facility] Specific [place] Urine Automated 1.025 1.002 - 1.030 [facility] Color, Urine Dipstick Yellow Yellow [facility] RBC, Urine 161(H) 0 - 3 /HPF [facility] WBC, Urine 1 0 - 3 /HPF [facility] Reflex to Culture No [facility] Urine specimen obtained via indwelling urinary catheter (specimen) 07/19/2017 8:07 AM EDT 07/19/2017 8:34 AM EDT Narrative Resulting Agency Comment Spec In Lab Sriram Contreras MD URINE ORDERABLES [facility] [place] [address] * POCT Glucose (07/19/2017 7:42 AM EDT) Glucose, POC 99 65 - 199 mg/dL [facility] Comment: Supplemental ranges: <140 mg/dL before meals <180 mg/dL all other times of the day Blood specimen (specimen) 07/19/2017 7:42 AM EDT 07/19/2017 7:42 AM EDT Sriram Contreras MD POINT OF CARE TEST ORDERABLES [facility] [place] [address] * POCT Glucose (07/19/2017 4:11 AM EDT) Pathologist [facility] Glucose, POC 93 65 - 199 mg/dL [facility] Comment: Supplemental ranges: <140 mg/dL before meals <180 mg/dL all other times of the day Blood specimen (specimen) 07/19/2017 4:11 AM EDT 07/19/2017 4:11 AM EDT Sriram Contreras MD POINT OF CARE TEST ORDERABLES Performing Organization Address City/[facility]/ZIP Co de Phone Number [facility] [place] [address] * (ABNORMAL) Differential, Automated (07/19/2017 2:30 AM EDT) [facility] Neutrophil % 77.9 % [facility] Neutrophil Absolute 9.99(H) 1.70 - 6.10 x10(3)/mc L [facility] Lymph % 9.8 % [facility] Lymphocytes Abs 1.2 0.9 - 3.2 x10(3)/mc L [facility] Monocyte % 11.5 % [facility] Monocyte Abs 1.5(H) 0.3 - 0.9 x10(3)/mc L [facility] Eos % 0.1 % [facility] Eosinophils Abs 0.0 0.0 - 0.4 x10(3)/mc L [facility] Basophil % 0.2 % [facility] Baso Absolute 0.0 0.0 - 0.1 x10(3)/mc L [facility] Immature Gran % 0.50 % [facility] Comment: Immature granulocytes(IG's)percentage and absolute count will include metamyelocytes, myelocytes, and promyelocytes. Blood smears from CBCs yielding IG's will be scanned manually for concordance. If this scan disagrees with the automated IG or if promyelocytes are noted, a manual differential will be performed. Immature Gran Absolute 0.07(H) 0.00 - 0.04 x10(3)/mc L [facility] Blood specimen (specimen) 07/19/2017 2:30 AM EDT 07/19/2017 2:34 AM EDT Narrative Resulting Agency Comment Spec In Lab Sriram Contreras MD HEMATOLOGY ORDERAB LES [facility] [place] [address] * (ABNORMAL) Hemogram (07/19/2017 2:30 AM EDT) White Blood Cell 12.8(H) 4.0 - 9.5 x10(3)/mc L [facility] Red Blood Cell 4.30(L) 4.58 - 5.54 x10(6)/mc L [facility] Hemoglobin 13.5(L) 13.7 - 16.5 gm/dL [facility] Hematocrit 38.6(L) 40.5 - 48.5 % [facility] Mean Cell Volume 89.8 82.9 - 93.1 fL [facility] Mean Cell Hemoglobin 31.4 27.5 - 32.1 pg [facility] Mean Cell Hemoglobin Concentration 35.0 32.0 - 35.7 gm/dL [facility] Platelet 176 145 - 357 x10(3)/mc L [facility] RDW Standard Deviation 45.1(H) 36.0 - 45.0 fL [facility] RDW coefficient of variation 13.9(H) 11.4 - 13.8 % [facility] Mean Platelet Volume 9.8 7.6 - 12.9 fL [facility] NRBC% auto 0.0 % [facility] NRBC Absolute 0.000 0.000 - 0.000 x10(3)/mc L [facility] Blood specimen (specimen) 07/19/2017 2:30 AM EDT 07/19/2017 2:34 AM EDT Narrative Resulting Agency Comment Spec In Lab Sriram Contreras MD HEMATOLOGY ORDERAB LES [facility] [place] [address] * (ABNORMAL) Basic Metabolic Panel (non-fasting) (07/19/2017 2:30 AM EDT) Glucose 102 65 - 199 mg/dL [facility] Comment:Diabetes: >=200 mg/d L plus symptoms Blood Urea Nitrogen 23(H) 10 - 20 mg/dL [facility] Creatinine 0.87 0.80 - 1.50 mg/dL [facility] Comment: Please note that the pediatric reference intervals supplied above were not validated at [facility]. Results from pediatric patients should be interpreted in conjunction to the patient's age, height and muscle mass. Sodium 144 135 - 145 mmol/L [facility] Potassium 3.4(L) 3.5 - 5.0 mmol/L [facility] Comment: Please note: ??Patients with WBC >100,000 may have falsely elevated Potassium levels. ??For accurate Potassium quantification in these patients send serum separator tube (gold top) for subsequent determinations. ??Contact the Clinical Chemistry Laboratory if there are any questions. Chloride 106 98 - 107 mmol/L [facility] Carbon Dioxide 23 22 - 31 mmol/L [facility] Anion Gap 15 5 - 15 mmol/L [facility] Calcium 8.5 8.5 - 10.5 mg/dL [facility] Est Glomerular Filtration Rate >60 >=60 [facility] Comment: [...] the following links into your internet browser. [email or web address] Blood specimen (specimen) 07/19/2017 2:30 AM EDT 07/19/2017 2:34 AM EDT Narrative Resulting Agency Comment Spec In Lab Sriram Contreras MD CHEMISTRY ORDERABL ES Performing Organization Address [facility] Co de Phone Number [facility] [place] [address] * (ABNORMAL) Prealbumin (07/19/2017 2:30 AM EDT) Prealbumin 17(L) 20 - 40 mg/dL [facility] Comment: Prealbumin levels are generally lower in the pediatric population; adult concentrations are usually attained near puberty. Blood specimen (specimen) 07/19/2017 2:30 AM EDT 07/19/2017 2:34 AM EDT Narrative Resulting Agency Comment Spec In Lab Sriram Contreras MD CHEMISTRY ORDERABL ES Performing Organization Address [facility] Co de Phone Number [facility] [place] [address] * (ABNORMAL) BLOOD GAS 2 ARTERIAL (07/18/2017 11:53 PM EDT) pH, Arterial 7.50(H) 7.35 - 7.45 [facility] PCO2, Arterial 32(L) 35 - 45 mmHg [facility] PO2, Arterial 61(L) 85 - 104 mmHg [facility] Bicarbonate, Arterial 24.5 20.0 - 26.0 mmol/L [facility] Base Excess, Arterial 1.3 -3.0 - 3.0 mmol/L [facility] Hgb Blood Gas 14.1 13.7 - 16.5 gm/dL [facility] Oxyhemoglobin, Arterial 90.9(L) 94.0 - 97.0 % [facility] Carboxyhemoglob in, Arterial 0.3 % [facility] Comment: Nonsmokers: 0.5-1.5% COHB Smokers: Variable, but usually less than 10% Toxic: 20-30% COHB Lethal: Greater than 60% COHB Methemoglobin, Arterial 0.7 <=1.5 % [facility] Na Whole Blood 144 135 - 145 mmol/L [facility] K Whole Blood 3.3(L) 3.5 - 5.0 mmol/L [facility] Comment: Please note: Patients with WBC >100,000 may have falsely elevated Potassium levels. Contact the Clinical Chemistry Laboratory if there are any questions. ICa Whole Blood 1.17 1.15 - 1.33 mmol/L [facility] Comment: Note: ??Total bilirubin higher than 20 mg/dL may lead to falsely low ionized calcium. CL Whole Blood 109(H) 98 - 107 mmol/L [facility] Gluc Whole Bld 104 65 - 199 mg/dL [facility] Comment:Diabetes: >=200 mg/d L plus symptoms. Lactate WB 1.3 0.5 - 2.2 mmol/L [facility] FIO2 Art 45 % [facility] PF Ratio Art 136 [facility] Blood specimen (specimen) 07/18/2017 11:53 PM EDT 07/18/2017 11:53 PM EDT Sriram Contreras MD POINT OF CARE TEST ORDERABLES [facility] [place] [address] * POCT Glucose (07/18/2017 11:49 PM EDT) Glucose, POC 102 65 - 199 mg/dL [facility] Comment: Supplemental ranges: <140 mg/dL before meals <180 mg/dL all other times of the day Blood specimen (specimen) 07/18/2017 11:49 PM EDT 07/18/2017 11:49 PM EDT Sriram Contreras MD POINT OF CARE TEST ORDERABLES Performing Organization Address City/[facility]/ZIP Co de Phone Number [facility] [place] [address] * POCT Glucose (07/18/2017 8:44 PM EDT) Glucose, POC 108 65 - 199 mg/dL [facility] Comment: Supplemental ranges: <140 mg/dL before meals <180 mg/dL all other times of the day Blood specimen (specimen) 07/18/2017 8:44 PM EDT 07/18/2017 8:44 PM EDT Sriram Contreras MD POINT OF CARE TEST ORDERABLES Performing Organization Address City/[facility] Co de Phone Number [facility] [place] [address] * (ABNORMAL) BLOOD GAS 2 ARTERIAL (07/18/2017 5:22 PM EDT) pH, Arterial 7.54(H) 7.35 - 7.45 [facility] PCO2, Arterial 31(L) 35 - 45 mmHg [facility] PO2, Arterial 55(L) 85 - 104 mmHg [facility] Bicarbonate, Arterial 25.9 20.0 - 26.0 mmol/L [facility] Base Excess, Arterial 3.3(H) -3.0 - 3.0 mmol/L [facility] Hgb Blood Gas 14.2 13.7 - 16.5 gm/dL [facility] Oxyhemoglobin, Arterial 90.3(L) 94.0 - 97.0 % [facility] Carboxyhemoglob in, Arterial 0.3 % [facility] Comment: Nonsmokers: 0.5-1.5% COHB Smokers: Variable, but usually less than 10% Toxic: 20-30% COHB Lethal: Greater than 60% COHB Methemoglobin, Arterial 0.5 <=1.5 % [facility] Na Whole Blood 144 135 - 145 mmol/L [facility] K Whole Blood 3.3(L) 3.5 - 5.0 mmol/L [facility] Comment: Please note: Patients with WBC >100,000 may have falsely elevated Potassium levels. Contact the Clinical Chemistry Laboratory if there are any questions. ICa Whole Blood 1.18 1.15 - 1.33 mmol/L [facility] Comment: Note: ??Total bilirubin higher than 20 mg/dL may lead to falsely low ionized calcium. CL Whole Blood 108(H) 98 - 107 mmol/L [facility] Gluc Whole Bld 130 65 - 199 mg/dL [facility] Comment:Diabetes: >=200 mg/d L plus symptoms. Lactate WB 1.6 0.5 - 2.2 mmol/L [facility] FIO2 Art 40 % [facility] PF Ratio Art 138 [facility] Blood specimen (specimen) 07/18/2017 5:22 PM EDT 07/18/2017 5:22 PM EDT Sriram Contreras MD POINT OF CARE TEST ORDERABLES [facility] [place] [address] * POCT Glucose (07/18/2017 3:42 PM EDT) Glucose, POC 119 65 - 199 mg/dL [facility] Comment: Supplemental ranges: <140 mg/dL before meals <180 mg/dL all other times of the day Blood specimen (specimen) 07/18/2017 3:42 PM EDT 07/18/2017 3:42 PM EDT Sriram Contreras MD POINT OF CARE TEST ORDERABLES [facility] [place] [address] * POCT Glucose (07/18/2017 1:05 PM EDT) Glucose, POC 118 65 - 199 mg/dL [facility] Comment: Supplemental ranges: <140 mg/dL before meals <180 mg/dL all other times of the day Blood specimen (specimen) 07/18/2017 1:05 PM EDT 07/18/2017 1:05 PM EDT Sriram Contreras MD POINT OF CARE TEST ORDERABLES Performing Organization Address [facility] Co de Phone Number [facility] [place] [address] * (ABNORMAL) BLOOD GAS 2 ARTERIAL (07/18/2017 11:47 AM EDT) pH, Arterial 7.51(H) 7.35 - 7.45 [facility] PCO2, Arterial 33(L) 35 - 45 mmHg [facility] PO2, Arterial 94 85 - 104 mmHg [facility] Bicarbonate, Arterial 25.1 20.0 - 26.0 mmol/L [facility] Base Excess, Arterial 2.0 -3.0 - 3.0 mmol/L [facility] [facility] Hgb Blood Gas 14.4 13.7 - 16.5 gm/dL [facility] Oxyhemoglobin, Arterial 96.1 94.0 - 97.0 % [facility] Carboxyhemoglob in, Arterial 0.3 % [facility] Comment: Nonsmokers: 0.5-1.5% COHB Smokers: Variable, but usually less than 10% Toxic: 20-30% COHB Lethal: Greater than 60% COHB Methemoglobin, Arterial 0.6 <=1.5 % [facility] Na Whole Blood 141 135 - 145 mmol/L [facility] K Whole Blood 3.6 3.5 - 5.0 mmol/L [facility] Comment: Please note: Patients with WBC >100,000 may have falsely elevated Potassium levels. Contact the Clinical Chemistry Laboratory if there are any questions. ICa Whole Blood 1.17 1.15 - 1.33 mmol/L [facility] Comment: Note: ??Total bilirubin higher than 20 mg/dL may lead to falsely low ionized calcium. CL Whole Blood 104 98 - 107 mmol/L [facility] Gluc Whole Bld 228(H) 65 - 199 mg/dL [facility] Comment:Diabetes: >=200 mg/d L plus symptoms. Lactate WB 1.7 0.5 - 2.2 mmol/L [facility] FIO2 Art 50 % [facility] PF Ratio Art 188 [facility] Blood specimen (specimen) 07/18/2017 11:47 AM EDT 07/18/2017 11:47 AM EDT Sriram Contreras MD POINT OF CARE TEST ORDERABLES [facility] [place] [address] * (ABNORMAL) BLOOD GAS 2 ARTERIAL (07/18/2017 7:56 AM EDT) pH, Arterial 7.50(H) 7.35 - 7.45 [facility] PCO2, Arterial 31(L) 35 - 45 mmHg [facility] PO2, Arterial 82(L) 85 - 104 mmHg [facility] Bicarbonate, Arterial 24.2 20.0 - 26.0 mmol/L [facility] Base Excess, Arterial 1.0 -3.0 - 3.0 mmol/L [facility] Hgb Blood Gas 13.4(L) 13.7 - 16.5 gm/dL [facility] Oxyhemoglobin, Arterial 95.3 94.0 - 97.0 % [facility] Carboxyhemoglob in, Arterial 0.3 % [facility] Comment: Nonsmokers: 0.5-1.5% COHB Smokers: Variable, but usually less than 10% Toxic: 20-30% COHB Lethal: Greater than 60% COHB Methemoglobin, Arterial 0.5 <=1.5 % [facility] Na Whole Blood 143 135 - 145 mmol/L [facility] K Whole Blood 3.7 3.5 - 5.0 mmol/L [facility] Comment: Please note: Patients with WBC >100,000 may have falsely elevated Potassium levels. Contact the Clinical Chemistry Laboratory if there are any questions. ICa Whole Blood 1.17 1.15 - 1.33 mmol/L [facility] Comment: Note: ??Total bilirubin higher than 20 mg/dL may lead to falsely low ionized calcium. CL Whole Blood 106 98 - 107 mmol/L [facility] Gluc Whole Bld 158 65 - 199 mg/dL [facility] Comment:Diabetes: >=200 mg/d L plus symptoms. Lactate WB 2.5(H) 0.5 - 2.2 mmol/L [facility] FIO2 Art 60 % [facility] PF Ratio Art 137 [facility] Blood specimen (specimen) 07/18/2017 7:56 AM EDT 07/18/2017 7:56 AM EDT Sriram Contreras MD POINT OF CARE TEST ORDERABLES [facility] [place] [address] * (ABNORMAL) BLOOD GAS 2 ARTERIAL (07/18/2017 3:55 AM EDT) pH, Arterial 7.51(H) 7.35 - 7.45 [facility] PCO2, Arterial 34(L) 35 - 45 mmHg [facility] PO2, Arterial 95 85 - 104 mmHg [facility] Bicarbonate, Arterial 26.4(H) 20.0 - 26.0 mmol/L [facility] Base Excess, Arterial 3.4(H) -3.0 - 3.0 mmol/L [facility] Hgb Blood Gas 14.2 13.7 - 16.5 gm/dL [facility] Oxyhemoglobin, Arterial 96.4 94.0 - 97.0 % [facility] Carboxyhemoglob in, Arterial 0.5 % [facility] Comment: Nonsmokers: 0.5-1.5% COHB Smokers: Variable, but usually less than 10% Toxic: 20-30% COHB Lethal: Greater than 60% COHB Methemoglobin, Arterial 0.6 <=1.5 % [facility] Na Whole Blood 142 135 - 145 mmol/L [facility] K Whole Blood 3.6 3.5 - 5.0 mmol/L [facility] Comment: Please note: Patients with WBC >100,000 may have falsely elevated Potassium levels. Contact the Clinical Chemistry Laboratory if there are any questions. ICa Whole Blood 1.17 1.15 - 1.33 mmol/L [facility] Comment: Note: ??Total bilirubin higher than 20 mg/dL may lead to falsely low ionized calcium. CL Whole Blood 105 98 - 107 mmol/L [facility] Gluc Whole Bld 178 65 - 199 mg/dL [facility] Comment:Diabetes: >=200 mg/d L plus symptoms. Lactate WB 3.0(H) 0.5 - 2.2 mmol/L [facility] FIO2 Art 70 % [facility] PF Ratio Art 136 [facility] Blood specimen (specimen) 07/18/2017 3:55 AM EDT 07/18/2017 3:55 AM EDT Sriram Contreras MD POINT OF CARE TEST ORDERABLES [facility] [place] [address] * (ABNORMAL) POCT Glucose (07/18/2017 3:42 AM EDT) [facility] Glucose, POC 205(H) 65 - 199 mg/dL [facility] Comment: Supplemental ranges: <140 mg/dL before meals <180 mg/dL all other times of the day Blood specimen (specimen) 07/18/2017 3:42 AM EDT 07/18/2017 3:42 AM EDT Sriram Contreras MD POINT OF CARE TEST ORDERABLES Performing Organization Address [facility] Co de Phone Number [facility] [place] [address] * (ABNORMAL) Magnesium (07/18/2017 2:20 AM EDT) [facility] Magnesium 1.09(H) 0.69 - 1.07 mmol/L [facility] Blood specimen (specimen) Venous Draw / Unknown 07/18/2017 2:20 AM EDT 07/18/2017 2:31 AM EDT Narrative Resulting Agency Comment Spec In Lab Sriram Contreras MD CHEMISTRY ORDERABL ES Performing Organization Address [facility] Co de Phone Number [facility] [place] [address] * (ABNORMAL) Differential, Automated (07/18/2017 2:20 AM EDT) [facility] Neutrophil % 86.8 % [facility] Neutrophil Absolute 9.28(H) 1.70 - 6.10 x10(3)/mc L [facility] Lymph % 5.8 % [facility] Lymphocytes Abs 0.6(L) 0.9 - 3.2 x10(3)/mc L [facility] Monocyte % 6.5 % [facility] Monocyte Abs 0.7 0.3 - 0.9 x10(3)/mc L [facility] Eos % 0.0 % [facility] Eosinophils Abs 0.0 0.0 - 0.4 x10(3)/[facility] LABOR[facility] Basophil % 0.2 % [facility] Baso Absolute 0.0 0.0 - 0.1 x10(3)/[facility] LAB[facility] Immature Gran % 0.70 % [facility] Comment: Immature granulocytes(IG's)percentage and absolute count will include metamyelocytes, myelocytes, and promyelocytes. Blood smears from CBCs yielding IG's will be scanned manually for concordance. If this scan disagrees with the automated IG or if promyelocytes are noted, a manual differential will be performed. Immature Gran Absolute 0.08(H) 0.00 - 0.04 x10(3)/[facility] LAB[facility] Blood specimen (specimen) 07/18/2017 2:20 AM EDT 07/18/2017 2:28 AM EDT Narrative Resulting Agency Comment Spec In Lab Sriram Contreras MD HEMATOLOGY ORDERAB LES Performing Organization Address City/State/[facility] Co de Phone Number [facility] [place] [phone] * (ABNORMAL) Hemogram (07/18/2017 2:20 AM EDT) White Blood Cell 10.7(H) 4.0 - 9.5 x10(3)/[facility] LAB[facility] Red Blood Cell 4.39(L) 4.58 - 5.54 x10(6)/[facility] Hemoglobin 13.6(L) 13.7 - 16.5 gm/dL [facility] Hematocrit 38.8(L) 40.5 - 48.5 % [facility] Mean Cell Volume 88.4 82.9 - 93.1 fL [facility] Mean Cell Hemoglobin 31.0 27.5 - 32.1 pg [facility] Mean Cell Hemoglobin Concentration 35.1 32.0 - 35.7 gm/dL [facility] Platelet 147 145 - 357 x10(3)/[facility] LAB[facility] RDW Standard Deviation 43.4 36.0 - 45.0 fL [facility] RDW coefficient of variation 13.3 11.4 - 13.8 % [facility] Mean Platelet Volume 10.9 7.6 - 12.9 [facility] NRBC% auto 0.0 % [facility] NRBC Absolute 0.000 0.000 - 0.000 x10(3)/mc L [facility] Blood specimen (specimen) 07/18/2017 2:20 AM EDT 07/18/2017 2:28 AM EDT Narrative Resulting Agency Comment Spec In Lab Sriram Contreras MD HEMATOLOGY ORDERAB LES [facility] [place] [address] * (ABNORMAL) Basic Metabolic Panel (non-fasting) (07/18/2017 2:20 AM EDT) Glucose 181 65 - 199 mg/dL [facility] Comment:Diabetes: >=200 mg/d L plus symptoms Blood Urea Nitrogen 22(H) 10 - 20 mg/dL [facility] Creatinine 0.74(L) 0.80 - 1.50 mg/dL [facility] Comment: Please note that the pediatric reference intervals supplied above were not validated at [facility]. Results from pediatric patients should be interpreted in conjunction to the patient's age, height and muscle mass. Sodium 145 135 - 145 mmol/L [facility] Potassium 3.7 3.5 - 5.0 mmol/L [facility] Comment: Please note: ??Patients with WBC >100,000 may have falsely elevated Potassium levels. ??For accurate Potassium quantification in these patients send serum separator tube (gold top) for subsequent determinations. ??Contact the Clinical Chemistry Laboratory if there are any questions. Chloride 105 98 - 107 mmol/L [facility] Carbon Dioxide 25 22 - 31 mmol/L [facility] Anion Gap 15 5 - 15 mmol/L [facility] Calcium 8.8 8.5 - 10.5 mg/dL [facility] Est Glomerular Filtration Rate >60 >=60 [facility] Comment: [...] the following links into your internet browser. [email or web address] Blood specimen (specimen) 07/18/2017 2:20 AM EDT 07/18/2017 2:28 AM EDT Narrative Resulting Agency Comment Spec In Lab Sriram Contreras MD CHEMISTRY ORDERABL ES [facility] [place] [phone] * (ABNORMAL) BLOOD GAS 2 ARTERIAL (07/17/2017 11:36 PM EDT) pH, Arterial 7.51(H) 7.35 - 7.45 [facility] PCO2, Arterial 32(L) 35 - 45 mmHg [facility] PO2, Arterial 60(L) 85 - 104 mmHg [facility] Bicarbonate, Arterial 25.0 20.0 - 26.0 mmol/L [facility] Base Excess, Arterial 2.0 -3.0 - 3.0 mmol/L [facility] Hgb Blood Gas 14.8 13.7 - 16.5 gm/dL [facility] Oxyhemoglobin, Arterial 92.1(L) 94.0 - 97.0 % [facility] Carboxyhemoglob in, Arterial 0.3 % [facility] Comment: Nonsmokers: 0.5-1.5% COHB Smokers: Variable, but usually less than 10% Toxic: 20-30% COHB Lethal: Greater than 60% COHB Methemoglobin, Arterial 0.5 <=1.5 % [facility] Na Whole Blood 143 135 - 145 mmol/L [facility] K Whole Blood 3.7 3.5 - 5.0 mmol/L [facility] Comment: Please note: Patients with WBC >100,000 may have falsely elevated Potassium levels. Contact the Clinical Chemistry Laboratory if there are any questions. ICa Whole Blood 1.16 1.15 - 1.33 mmol/L [facility] Comment: Note: ??Total bilirubin higher than 20 mg/dL may lead to falsely low ionized calcium. CL Whole Blood 104 98 - 107 mmol/L [facility] Gluc Whole Bld 202(H) 65 - 199 mg/dL [facility] Comment:Diabetes: >=200 mg/d L plus symptoms. Lactate WB 2.9(H) 0.5 - 2.2 mmol/L [facility] FIO2 Art 60 % [facility] PF Ratio Art 100 [facility] Blood specimen (specimen) 07/17/2017 11:36 PM EDT 07/17/2017 11:36 PM EDT Sriram Contreras MD POINT OF CARE TEST ORDERABLES Performing Organization Address City/State/[facility] Co de Phone Number [facility] [place] [address] * (ABNORMAL) POCT Glucose (07/17/2017 11:34 PM EDT) Glucose, POC 202(H) 65 - 199 mg/dL [facility] Comment: Supplemental ranges: <140 mg/dL before meals <180 mg/dL all other times of the day Blood specimen (specimen) 07/17/2017 11:34 PM EDT 07/17/2017 11:34 PM EDT Sriram Contreras MD POINT OF CARE TEST ORDERABLES [facility] [place] [address] * Magnesium (07/17/2017 10:10 PM EDT) Pathologist [facility] Magnesium 0.87 0.69 - 1.07 mmol/L [facility] Blood specimen (specimen) 07/17/2017 10:10 PM EDT 07/17/2017 10:18 PM EDT Narrative Resulting Agency Comment Spec In Lab Sriram Contreras MD CHEMISTRY ORDERABL ES Performing Organization Address City/[facility] Co de Phone Number [facility] [place] [address] * (ABNORMAL) BLOOD GAS 2 ARTERIAL (07/17/2017 7:51 PM EDT) Pathologist [facility] pH, Arterial 7.49(H) 7.35 - 7.45 [facility] PCO2, Arterial 36 35 - 45 mmHg [facility] PO2, Arterial 67(L) 85 - 104 mmHg [facility] Bicarbonate, Arterial 26.8(H) 20.0 - 26.0 mmol/L [facility] Base Excess, Arterial 3.4(H) -3.0 - 3.0 mmol/L [facility] Hgb Blood Gas 14.3 13.7 - 16.5 gm/dL [facility] Oxyhemoglobin, Arterial 93.4(L) 94.0 - 97.0 % [facility] Carboxyhemoglob in, Arterial 0.3 % [facility] Comment: Nonsmokers: 0.5-1.5% COHB Smokers: Variable, but usually less than 10% Toxic: 20-30% COHB Lethal: Greater than 60% COHB Methemoglobin, Arterial 0.6 <=1.5 % [facility] Na Whole Blood 143 135 - 145 mmol/L [facility] K Whole Blood 3.7 3.5 - 5.0 mmol/L [facility] Comment: Please note: Patients with WBC >100,000 may have falsely elevated Potassium levels. Contact the Clinical Chemistry Laboratory if there are any questions. ICa Whole Blood 1.17 1.15 - 1.33 mmol/L [facility] Comment: Note: ??Total bilirubin higher than 20 mg/dL may lead to falsely low ionized calcium. CL Whole Blood 106 98 - 107 mmol/L [facility] Gluc Whole Bld 178 65 - 199 mg/dL [facility] Comment:Diabetes: >=200 mg/d L plus symptoms. Lactate WB 2.8(H) 0.5 - 2.2 mmol/L [facility] FIO2 Art 60 % [facility] PF Ratio Art 112 [facility] Blood specimen (specimen) 07/17/2017 7:51 PM EDT 07/17/2017 7:51 PM EDT Sriram Contreras MD POINT OF CARE TEST ORDERABLES Performing Organization Address City/[facility]/ZIP Co de Phone Number [facility] [place] [address] * POCT Glucose (07/17/2017 7:50 PM EDT) Glucose, POC 153 65 - 199 mg/dL [facility] Comment: Supplemental ranges: <140 mg/dL before meals <180 mg/dL all other times of the day Blood specimen (specimen) 07/17/2017 7:50 PM EDT 07/17/2017 7:50 PM EDT Sriram Contreras MD POINT OF CARE TEST ORDERABLES Performing Organization Address City/[facility]/ZIP Co de Phone Number [facility] [place] [address] * (ABNORMAL) BLOOD GAS 2 ARTERIAL (07/17/2017 3:20 PM EDT) pH, Arterial 7.51(H) 7.35 - 7.45 [facility] PCO2, Arterial 31(L) 35 - 45 mmHg [facility] PO2, Arterial 67(L) 85 - 104 mmHg [facility] Bicarbonate, Arterial 24.3 20.0 - 26.0 mmol/L [facility] Base Excess, Arterial 1.3 -3.0 - 3.0 mmol/L [facility] Hgb Blood Gas 14.1 13.7 - 16.5 gm/dL [facility] Oxyhemoglobin, Arterial 93.8(L) 94.0 - 97.0 % [facility] Carboxyhemoglob in, Arterial 0.3 % [facility] Comment: Nonsmokers: 0.5-1.5% COHB Smokers: Variable, but usually less than 10% Toxic: 20-30% COHB Lethal: Greater than 60% COHB Methemoglobin, Arterial 0.5 <=1.5 % [facility] Na Whole Blood 141 135 - 145 mmol/L [facility] K Whole Blood 3.7 3.5 - 5.0 mmol/L [facility] Comment: Please note: Patients with WBC >100,000 may have falsely elevated Potassium levels. Contact the Clinical Chemistry Laboratory if there are any questions. ICa Whole Blood 1.15(L) 1.15 - 1.33 mmol/L [facility] Comment: Note: ??Total bilirubin higher than 20 mg/dL may lead to falsely low ionized calcium. CL Whole Blood 105 98 - 107 mmol/L [facility] Gluc Whole Bld 204(H) 65 - 199 mg/dL [facility] Comment:Diabetes: >=200 mg/d L plus symptoms. Lactate WB 2.0 0.5 - 2.2 mmol/L [facility] FIO2 Art 50 % [facility] PF Ratio Art 134 [facility] Blood specimen (specimen) 07/17/2017 3:20 PM EDT 07/17/2017 3:20 PM EDT Sriram Contreras MD POINT OF CARE TEST ORDERABLES [facility] [place] [address] * (ABNORMAL) BLOOD GAS 2 ARTERIAL (07/17/2017 12:50 PM EDT) pH, Arterial 7.51(H) 7.35 - 7.45 [facility] PCO2, Arterial 30(L) 35 - 45 mmHg [facility] PO2, Arterial 52(L) 85 - 104 mmHg [facility] Bicarbonate, Arterial 23.7 20.0 - 26.0 mmol/L [facility] Base Excess, Arterial 0.8 -3.0 - 3.0 mmol/L [facility] Hgb Blood Gas 14.0 13.7 - 16.5 gm/dL [facility] Oxyhemoglobin, Arterial 89.4(L) 94.0 - 97.0 % [facility] Carboxyhemoglob in, Arterial 0.3 % [facility] Comment: Nonsmokers: 0.5-1.5% COHB Smokers: Variable, but usually less than 10% Toxic: 20-30% COHB Lethal: Greater than 60% COHB Methemoglobin, Arterial 0.5 <=1.5 % [facility] Na Whole Blood 140 135 - 145 mmol/L [facility] K Whole Blood 3.9 3.5 - 5.0 mmol/L [facility] Comment: Please note: Patients with WBC >100,000 may have falsely elevated Potassium levels. Contact the Clinical Chemistry Laboratory if there are any questions. ICa Whole Blood 1.18 1.15 - 1.33 mmol/L [facility] Comment: Note: ??Total bilirubin higher than 20 mg/dL may lead to falsely low ionized calcium. CL Whole Blood 106 98 - 107 mmol/L [facility] Gluc Whole Bld 195 65 - 199 mg/dL [facility] Comment:Diabetes: >=200 mg/d L plus symptoms. Lactate WB 2.3(H) 0.5 - 2.2 mmol/L [facility] FIO2 Art 50 % [facility] PF Ratio Art 104 [facility] Blood specimen (specimen) 07/17/2017 12:50 PM EDT 07/17/2017 12:50 PM EDT Sriram Contreras MD POINT OF CARE TEST ORDERABLES [facility] [place] [address] * XR Chest PA or AP 1 [...] EDT) pH, Arterial 7.48(H) 7.35 - 7.45 [facility] PCO2, Arterial 34(L) 35 - 45 mmHg [facility] PO2, Arterial 55(L) 85 - 104 mmHg [facility] Bicarbonate, Arterial 24.7 20.0 - 26.0 mmol/L [facility] Base Excess, Arterial 1.2 -3.0 - 3.0 mmol/L [facility] Hgb Blood Gas 14.1 13.7 - 16.5 gm/dL [facility] Oxyhemoglobin, Arterial 90.4(L) 94.0 - 97.0 % [facility] Carboxyhemoglob in, Arterial 0.1 % [facility] Comment: Nonsmokers: 0.5-1.5% COHB Smokers: Variable, but usually less than 10% Toxic: 20-30% COHB Lethal: Greater than 60% COHB Methemoglobin, Arterial 0.7 <=1.5 % [facility] Na Whole Blood 141 135 - 145 mmol/L [facility] K Whole Blood 4.2 3.5 - 5.0 mmol/L [facility] Comment: Please note: Patients with WBC >100,000 may have falsely elevated Potassium levels. Contact the Clinical Chemistry Laboratory if there are any questions. ICa Whole Blood 1.18 1.15 - 1.33 mmol/L [facility] Comment: Note: ??Total bilirubin higher than 20 mg/dL may lead to falsely low ionized calcium. CL Whole Blood 106 98 - 107 mmol/L [facility] Gluc Whole Bld 194 65 - 199 mg/dL [facility] Comment:Diabetes: >=200 mg/d L plus symptoms. Lactate WB 2.6(H) 0.5 - 2.2 mmol/L [facility] FIO2 Art 40 % [facility] PF Ratio Art 138 [facility] Blood specimen (specimen) 07/17/2017 11:54 AM EDT 07/17/2017 11:54 AM EDT Sriram Contreras MD POINT OF CARE TEST ORDERABLES [facility] [place] [address] * Cardiac Enzymes (07/17/2017 5:42 AM EDT) Troponin-T <0.01 0.00 - 0.00 ng/mL [facility] Comment: The 99th percentile for Troponin T is less than 0.01 ng/mL, any detectable cTnT concentration using this assay should be considered elevated. According to the third universal definition of myocardial infarction the following criteria with a clinical presentation consistent with acute myocardial ischemia meets the diagnosis for a myocardial infarction ([place]). Detection of a rise and/or fall of cTnT, with at least one value greater than the 99th percentile (> or = 0.01) and with at least one of the following ?? Symptoms of ischemia ?? New or presumed new significant [id number] wave (ST-T) changes or new left bundle [...] additional sample may be indicated. Reference: Third [place] Definition of Myocardial Infarction. Journal of the [employer] 2012;60:1581-98 Creatine Kinase 47 0 - 200 unit/L [facility] Blood specimen (specimen) 07/17/2017 5:42 AM EDT 07/17/2017 5:42 AM EDT Narrative Resulting Agency Comment Spec In Lab Sriram Contreras MD CHEMISTRY ORDERABL ES [facility] [place] [address] * (ABNORMAL) Differential, Automated (07/17/2017 12:30 AM EDT) Neutrophil % 90.5 % [facility] Neutrophil Absolute 8.62(H) 1.70 - 6.10 x10(3)/mc L [facility] Lymph % 3.7 % [facility] Lymphocytes Abs 0.4(L) 0.9 - 3.2 x10(3)/mc L [facility] Monocyte % 4.9 % [facility] Monocyte Abs 0.5 0.3 - 0.9 x10(3)/mc L [facility] Eos % 0.0 % [facility] Eosinophils Abs 0.0 0.0 - 0.4 x10(3)/mc L [facility] Basophil % 0.1 % [facility] Baso Absolute 0.0 0.0 - 0.1 x10(3)/mc L [facility] Immature Gran % 0.80 % [facility] Comment: Immature granulocytes(IG's)percentage and absolute count will include metamyelocytes, myelocytes, and promyelocytes. Blood smears from CBCs yielding IG's will be scanned manually for concordance. If this scan disagrees with the automated IG or if promyelocytes are noted, a manual differential will be performed. Immature Gran Absolute 0.08(H) 0.00 - 0.04 x10(3)/mc L [facility] Blood specimen (specimen) 07/17/2017 12:30 AM EDT 07/17/2017 1:13 AM EDT Narrative Resulting Agency Comment Spec In Lab Sriram Contreras MD HEMATOLOGY ORDERAB LES [facility] [place] [address] * (ABNORMAL) Hemogram (07/17/2017 12:30 AM EDT) White Blood Cell 9.5 4.0 - 9.5 x10(3)/mc L [facility] Red Blood Cell 3.98(L) 4.58 - 5.54 x10(6)/mc L [facility] Hemoglobin 12.4(L) 13.7 - 16.5 gm/dL [facility] Hematocrit 36.7(L) 40.5 - 48.5 % [facility] Mean Cell Volume 92.2 82.9 - 93.1 fL [facility] Mean Cell Hemoglobin 31.2 27.5 - 32.1 pg [facility] Mean Cell Hemoglobin Concentration 33.8 32.0 - 35.7 gm/dL [facility] Platelet 133(L) 145 - 357 x10(3)/mc L [facility] RDW Standard Deviation 47.7(H) 36.0 - 45.0 fL [facility] RDW coefficient of variation 13.8 11.4 - 13.8 % [facility] Mean Platelet Volume 10.9 7.6 - 12.9 fL [facility] NRBC% auto 0.0 % [facility] NRBC Absolute 0.000 0.000 - 0.000 x10(3)/mc L [facility] Blood specimen (specimen) 07/17/2017 12:30 AM EDT 07/17/2017 1:13 AM EDT Narrative Resulting Agency Comment Spec In Lab Sriram Contreras MD HEMATOLOGY ORDERAB LES [facility] [place] [address] * (ABNORMAL) Basic Metabolic Panel (non-fasting) (07/17/2017 12:30 AM EDT) Glucose 246(H) 65 - 199 mg/dL [facility] Comment:Diabetes: >=200 mg/d L plus symptoms Blood Urea Nitrogen 17 10 - 20 mg/dL [facility] Creatinine 0.73(L) 0.80 - 1.50 mg/dL [facility] Comment: Please note that the pediatric reference intervals supplied above were not validated at [facility]. Results from pediatric patients should be interpreted in conjunction to the patient's age, height and muscle mass. Sodium 137 135 - 145 mmol/L [facility] Potassium 4.7 3.5 - 5.0 mmol/L [facility] Comment: Please note: ??Patients with WBC >100,000 may have falsely elevated Potassium levels. ??For accurate Potassium quantification in these patients send serum separator tube (gold top) for subsequent determinations. ??Contact the Clinical Chemistry Laboratory if there are any questions. Chloride 103 98 - 107 mmol/L [facility] Carbon Dioxide 21(L) 22 - 31 mmol/L [facility] Anion Gap 13 5 - 15 mmol/L [facility] Calcium 8.3(L) 8.5 - 10.5 mg/dL [facility] Est Glomerular Filtration Rate >60 >=60 [facility] Comment: [...] the following links into your internet browser. [email or web address] Blood specimen (specimen) 07/17/2017 12:30 AM EDT 07/17/2017 1:13 AM EDT Narrative Resulting Agency Comment Spec In Lab Sriram Contreras MD CHEMISTRY ORDERABL ES Performing Organization Address [facility] Co de Phone Number [facility] [place] [address] * Cardiac Enzymes (07/17/2017 12:30 AM EDT) Troponin-T <0.01 0.00 - 0.00 ng/mL [facility] Comment: The 99th percentile for Troponin T is less than 0.01 ng/mL, any detectable cTnT concentration using this assay should be considered elevated. According to the third universal definition of myocardial infarction the following criteria with a clinical presentation consistent with acute myocardial ischemia meets the diagnosis for a myocardial infarction ([place]). Detection of a rise and/or fall of cTnT, with at least one value greater than the 99th percentile (> or = 0.01) and with at least one of the following ?? Symptoms of ischemia ?? New or presumed new significant FC-zpkmgul-O wave (ST-T) changes or new left bundle [...] additional sample may be indicated. Reference: Third [place] Definition of Myocardial Infarction. Journal of the [employer] 2012;60:1581-98 Creatine Kinase 60 0 - 200 unit/L [facility] Blood specimen (specimen) 07/17/2017 12:30 AM EDT 07/17/2017 1:13 AM EDT Narrative Resulting Agency Comment Spec In Lab Sriram Contreras MD CHEMISTRY ORDERABL ES Performing Organization Address [facility]/ZIP Co de Phone Number [facility] [place] [address] * XR Chest PA or AP 1 [...] EDT) Troponin-T <0.01 0.00 - 0.00 ng/mL [facility] Comment: The 99th percentile for Troponin T is less than 0.01 ng/mL, any detectable cTnT concentration using this assay should be considered elevated. According to the third universal definition of myocardial infarction the following criteria with a clinical presentation consistent with acute myocardial ischemia meets the diagnosis for a myocardial infarction ([place]). Detection of a rise and/or fall of cTnT, with at least one value greater than the 99th percentile (> or = 0.01) and with at least one of the following ?? Symptoms of ischemia ?? New or presumed new significant SS-eqprwfc-H wave (ST-T) changes or new left bundle [...] additional sample may be indicated. Reference: Third [place] Definition of Myocardial Infarction. Journal of the [employer] 2012;60:1581-98 Creatine Kinase 63 0 - 200 unit/L [facility] Blood specimen (specimen) 07/16/2017 5:10 PM EDT 07/16/2017 5:20 PM EDT Narrative Resulting Agency Comment Spec In Lab Sriram Contreras MD CHEMISTRY ORDERABL ES Performing Organization Address [facility] Co de Phone Number [facility] [place] [phone] * EKG 12 Lead (07/16/2017 4:46 PM EDT) Ventricular rate 70 BPM MUSE SYSTEM Atrial Rate 70 BPM MUSE SYSTEM P-R Interval 208 ms MUSE SYSTEM QRS Duration 96 ms MUSE SYSTEM Q-T Interval 404 ms MUSE SYSTEM QTC Calculated (Bezet) 436 ms MUSE SYSTEM Calculated P [place] 57 degrees MUSE SYSTEM Calculated R [place] 54 degrees MUSE SYSTEM Calculated T [place] 50 degrees MUSE SYSTEM INTERPRETATION Sinus rhythm with frequent Premature ventricular complexes in a pattern of bigeminy Otherwise normal ECG Confirmed by MD Bello Douglas ([id number]) on 07/17/2017 2:06:02 PM MUSE SYSTEM 07/16/2017 4:46 PM EDT 07/17/2017 2:06 PM EDT Sriram Contreras MD ECG ORDERABLES Performing Organization Address [facility] Co de Phone Number MUSE SYSTEM * Magnesium (07/16/2017 4:00 AM EDT) Magnesium 0.82 0.69 - 1.07 mmol/L [facility] Blood specimen (specimen) Venous Draw / Unknown 07/16/2017 4:00 AM EDT 07/16/2017 4:18 AM EDT Narrative Resulting Agency Comment Spec In Lab Sriram Contreras MD CHEMISTRY ORDERABL ES [facility] [place] [address] * (ABNORMAL) Differential, Automated (07/16/2017 4:00 AM EDT) Pathologist [facility] Neutrophil % 81.3 % [facility] Neutrophil Absolute 8.31(H) 1.70 - 6.10 x10(3)/mc L [facility] Lymph % 10.7 % [facility] Lymphocytes Abs 1.1 0.9 - 3.2 x10(3)/mc L [facility] Monocyte % 6.8 % [facility] Monocyte Abs 0.7 0.3 - 0.9 x10(3)/mc L [facility] Eos % 0.3 % [facility] Eosinophils Abs 0.0 0.0 - 0.4 x10(3)/mc L [facility] Basophil % 0.4 % [facility] Baso Absolute 0.0 0.0 - 0.1 x10(3)/mc L [facility] Immature Gran % 0.50 % [facility] Comment: Immature granulocytes(IG's)percentage and absolute count will include metamyelocytes, myelocytes, and promyelocytes. Blood smears from CBCs yielding IG's will be scanned manually for concordance. If this scan disagrees with the automated IG or if promyelocytes are noted, a manual differential will be performed. Immature Gran Absolute 0.05(H) 0.00 - 0.04 x10(3)/mc L [facility] Blood specimen (specimen) 07/16/2017 4:00 AM EDT 07/16/2017 4:16 AM EDT Narrative Resulting Agency Comment Spec In Lab Sriram Cotnreras MD HEMATOLOGY ORDERAB LES [facility] [place] [address] * (ABNORMAL) Hemogram (07/16/2017 4:00 AM EDT) White Blood Cell 10.2(H) 4.0 - 9.5 x10(3)/mc L [facility] Red Blood Cell 3.95(L) 4.58 - 5.54 x10(6)/mc L [facility] Hemoglobin 12.4(L) 13.7 - 16.5 gm/dL [facility] Hematocrit 37.2(L) 40.5 - 48.5 % [facility] Mean Cell Volume 94.2(H) 82.9 - 93.1 fL [facility] Mean Cell Hemoglobin 31.4 27.5 - 32.1 pg [facility] Mean Cell Hemoglobin Concentration 33.3 32.0 - 35.7 gm/dL [facility] Platelet 126(L) 145 - 357 x10(3)/mc L [facility] RDW Standard Deviation 50.0(H) 36.0 - 45.0 fL [facility] RDW coefficient of variation 14.3(H) 11.4 - 13.8 % [facility] Mean Platelet Volume 10.3 7.6 - 12.9 fL [facility] NRBC% auto 0.0 % [facility] NRBC Absolute 0.000 0.000 - 0.000 x10(3)/mc L [facility] Blood specimen (specimen) 07/16/2017 4:00 AM EDT 07/16/2017 4:16 AM EDT Narrative Resulting Agency Comment Spec In Lab Sriram Contreras MD HEMATOLOGY ORDERAB LES [facility] [place] [address] * (ABNORMAL) Basic Metabolic Panel (non-fasting) (07/16/2017 4:00 AM EDT) Glucose 131 65 - 199 mg/dL [facility] Comment:Diabetes: >=200 mg/d L plus symptoms Blood Urea Nitrogen 16 10 - 20 mg/dL [facility] Creatinine 0.82 0.80 - 1.50 mg/dL [facility] Comment: Please note that the pediatric reference intervals supplied above were not validated at [facility]. Results from pediatric patients should be interpreted in conjunction to the patient's age, height and muscle mass. Sodium 144 135 - 145 mmol/L [facility] Potassium 4.2 3.5 - 5.0 mmol/L [facility] Comment: Please note: ??Patients with WBC >100,000 may have falsely elevated Potassium levels. ??For accurate Potassium quantification in these patients send serum separator tube (gold top) for subsequent determinations. ??Contact the Clinical Chemistry Laboratory if there are any questions. Chloride 106 98 - 107 mmol/L [facility] Carbon Dioxide 21(L) 22 - 31 mmol/L [facility] Anion Gap 17(H) 5 - 15 mmol/L [facility] Calcium 8.1(L) 8.5 - 10.5 mg/dL [facility] Est Glomerular Filtration Rate >60 >=60 [facility] Comment: [...] the following links into your internet browser. [email or web address] Blood specimen (specimen) 07/16/2017 4:00 AM EDT 07/16/2017 4:16 AM EDT Narrative Resulting Agency Comment Spec In Lab Sriram Contreras MD CHEMISTRY ORDERABL ES Performing Organization Address [facility] Co de Phone Number [facility] [place] [address] * POCT Glucose (07/15/2017 12:26 PM EDT) Glucose, POC 75 65 - 199 mg/dL [facility] Comment: Supplemental ranges: <140 mg/dL before meals <180 mg/dL all other times of the day Blood specimen (specimen) 07/15/2017 12:26 PM EDT 07/15/2017 12:26 PM EDT Sriram Contreras MD POINT OF CARE TEST ORDERABLES Performing Organization Address [facility] Co de Phone Number [facility] [place] [address] * (ABNORMAL) Basic Metabolic Panel (non-fasting) (07/15/2017 10:20 AM EDT) Glucose 111 65 - 199 mg/dL [facility] Comment:Diabetes: >=200 mg/d L plus symptoms Blood Urea Nitrogen 19 10 - 20 mg/dL [facility] Creatinine 0.96 0.80 - 1.50 mg/dL [facility] Comment: Please note that the pediatric reference intervals supplied above were not validated at [facility]. Results from pediatric patients should be interpreted in conjunction to the patient's age, height and muscle mass. Sodium 143 135 - 145 mmol/L [facility] Potassium 4.0 3.5 - 5.0 mmol/L [facility] Comment: Please note: ??Patients with WBC >100,000 may have falsely elevated Potassium levels. ??For accurate Potassium quantification in these patients send serum separator tube (gold top) for subsequent determinations. ??Contact the Clinical Chemistry Laboratory if there are any questions. Chloride 107 98 - 107 mmol/L [facility] Carbon Dioxide 22 22 - 31 mmol/L [facility] Anion Gap 14 5 - 15 mmol/L [facility] Calcium 8.2(L) 8.5 - 10.5 mg/dL [facility] Est Glomerular Filtration Rate >60 >=60 [facility] Comment: [...] the following links into your internet browser. [email or web address] Blood specimen (specimen) 07/15/2017 10:20 AM EDT 07/15/2017 10:24 AM EDT Narrative Resulting Agency Comment Spec In Lab Sriram Contreras MD CHEMISTRY ORDERABL ES Performing Organization Address [facility] Co de Phone Number [facility] [place] [address] * POCT Glucose (07/15/2017 8:30 AM EDT) Glucose, POC 111 65 - 199 mg/dL [facility] Comment: Supplemental ranges: <140 mg/dL before meals <180 mg/dL all other times of the day Blood specimen (specimen) 07/15/2017 8:30 AM EDT 07/15/2017 8:30 AM EDT Sriram Contreras MD POINT OF CARE TEST ORDERABLES Performing Organization Address City/[facility] Co de Phone Number [facility] [place] [address] * (ABNORMAL) BLOOD GAS 2 ARTERIAL (07/15/2017 4:17 AM EDT) pH, Arterial 7.38 7.35 - 7.45 [facility] PCO2, Arterial 42 35 - 45 mmHg [facility] PO2, Arterial 61(L) 85 - 104 mmHg [facility] Bicarbonate, Arterial 24.6 20.0 - 26.0 mmol/L [facility] Base Excess, Arterial -0.4 -3.0 - 3.0 mmol/L [facility] Hgb Blood Gas 14.0 13.7 - 16.5 gm/dL [facility] Oxyhemoglobin, Arterial 90.6(L) 94.0 - 97.0 % [facility] Carboxyhemoglob in, Arterial 0.2 % [facility] Comment: Nonsmokers: 0.5-1.5% COHB Smokers: Variable, but usually less than 10% Toxic: 20-30% COHB Lethal: Greater than 60% COHB Methemoglobin, Arterial 0.5 <=1.5 % [facility] Na Whole Blood 139 135 - 145 mmol/L [facility] K Whole Blood 4.1 3.5 - 5.0 mmol/L [facility] Comment: Please note: Patients with WBC >100,000 may have falsely elevated Potassium levels. Contact the Clinical Chemistry Laboratory if there are any questions. ICa Whole Blood 1.19 1.15 - 1.33 mmol/L [facility] Comment: Note: ??Total bilirubin higher than 20 mg/dL may lead to falsely low ionized calcium. CL Whole Blood 106 98 - 107 mmol/L [facility] Gluc Whole Bld 130 65 - 199 mg/dL [facility] Comment:Diabetes: >=200 mg/d L plus symptoms. Lactate WB 1.9 0.5 - 2.2 mmol/L [facility] FIO2 Art 35 % [facility] PF Ratio Art 174 [facility] Blood specimen (specimen) 07/15/2017 4:17 AM EDT 07/15/2017 4:17 AM EDT Sriram Contreras MD POINT OF CARE TEST ORDERABLES Performing Organization Address City/State/[facility] Co de Phone Number [facility] [place] [address] * (ABNORMAL) Differential, Automated (07/15/2017 4:15 AM EDT) Neutrophil % 84.7 % [facility] Neutrophil Absolute 12.39(H) 1.70 - 6.10 x10(3)/mc L [facility] Lymph % 6.2 % [facility] Lymphocytes Abs 0.9 0.9 - 3.2 x10(3)/mc L [facility] Monocyte % 8.0 % [facility] Monocyte Abs 1.2(H) 0.3 - 0.9 x10(3)/mc L [facility] Eos % 0.0 % [facility] Eosinophils Abs 0.0 0.0 - 0.4 x10(3)/mc L [facility] Basophil % 0.1 % [facility] Baso Absolute 0.0 0.0 - 0.1 x10(3)/mc L [facility] Immature Gran % 1.00 % [facility] Comment: Immature granulocytes(IG's)percentage and absolute count will include metamyelocytes, myelocytes, and promyelocytes. Blood smears from CBCs yielding IG's will be scanned manually for concordance. If this scan disagrees with the automated IG or if promyelocytes are noted, a manual differential will be performed. Immature Gran Absolute 0.14(H) 0.00 - 0.04 x10(3)/mc L [facility] Blood specimen (specimen) 07/15/2017 4:15 AM EDT 07/15/2017 4:28 AM EDT Narrative Resulting Agency Comment Spec In Lab Sriram Contreras MD HEMATOLOGY ORDERAB LES [facility] [place] [address] * (ABNORMAL) Hemogram (07/15/2017 4:15 AM EDT) White Blood Cell 14.6(H) 4.0 - 9.5 x10(3)/mc L [facility] Red Blood Cell 4.16(L) 4.58 - 5.54 x10(6)/mc L [facility] Hemoglobin 13.0(L) 13.7 - 16.5 gm/dL [facility] Hematocrit 38.9(L) 40.5 - 48.5 % [facility] Mean Cell Volume 93.5(H) 82.9 - 93.1 fL [facility] Mean Cell Hemoglobin 31.3 27.5 - 32.1 pg [facility] Mean Cell Hemoglobin Concentration 33.4 32.0 - 35.7 gm/dL [facility] Platelet 135(L) 145 - 357 x10(3)/mc L [facility] RDW Standard Deviation 48.8(H) 36.0 - 45.0 fL [facility] RDW coefficient of variation 14.2(H) 11.4 - 13.8 % [facility] Mean Platelet Volume 10.0 7.6 - 12.9 fL [facility] NRBC% auto 0.0 % [facility] NRBC Absolute 0.000 0.000 - 0.000 x10(3)/mc L [facility] Blood specimen (specimen) 07/15/2017 4:15 AM EDT 07/15/2017 4:28 AM EDT Narrative Resulting Agency Comment Spec In Lab Sriram Contreras MD HEMATOLOGY ORDERAB LES Performing Organization Address City/[facility]/ZIP Co de Phone Number [facility] [place] [address] * Potassium (07/14/2017 8:20 PM EDT) Potassium 4.4 3.5 - 5.0 mmol/L [facility] Comment: Please note: ??Patients with [...] MD CHEMISTRY ORDERABL ES Performing Organization Address [facility] Co de Phone Number [facility] [place] [address] * (ABNORMAL) Magnesium (07/14/2017 8:20 PM EDT) Magnesium 1.08(H) 0.69 - 1.07 mmol/L [facility] Blood specimen (specimen) 07/14/2017 8:20 PM EDT 07/14/2017 8:31 PM EDT Narrative Resulting Agency Comment Spec In Lab Sriram Contreras MD CHEMISTRY ORDERABL ES Performing Organization Address [facility] Co de Phone Number [facility] [place] [address] * Magnesium (07/14/2017 4:30 PM EDT) Magnesium 0.86 0.69 - 1.07 mmol/L [facility] Blood specimen (specimen) 07/14/2017 4:30 PM EDT 07/14/2017 4:50 PM EDT Narrative Resulting Agency Comment Spec In Lab Sriram Contreras MD CHEMISTRY ORDERABL ES Performing Organization Address [facility] Co de Phone Number [facility] [place] [address] * POCT Glucose (07/14/2017 4:26 PM EDT) Glucose, POC 146 65 - 199 mg/dL [facility] Comment: Supplemental ranges: <140 mg/dL before meals <180 mg/dL all other times of the day Blood specimen (specimen) 07/14/2017 4:26 PM EDT 07/14/2017 4:26 PM EDT Sriram Contreras MD POINT OF CARE TEST ORDERABLES Performing Organization Address [facility] Co de Phone Number [facility] [place] [phone] * EKG 12 Lead (07/14/2017 12:37 PM EDT) Ventricular rate 67 BPM MUSE SYSTEM Atrial Rate 67 BPM MUSE SYSTEM P-R Interval 216 ms MUSE SYSTEM QRS Duration 100 ms MUSE SYSTEM Q-T Interval 438 ms MUSE SYSTEM QTC Calculated (Bezet) 462 ms MUSE SYSTEM Calculated P [place] 58 degrees MUSE SYSTEM Calculated R [place] 56 degrees MUSE SYSTEM Calculated T [place] 38 degrees MUSE SYSTEM INTERPRETATION Sinus rhythm with 1st degree A-V block Otherwise normal ECG When compared with ECG of 29-MAR-1997 12:50, RI interval has increased Confirmed by MD Radha, Daryl ([id number]) on 07/14/2017 5:07:22 PM MUSE SYSTEM 07/14/2017 12:3 7 PM EDT 07/14/2017 5:07 PM EDT Sriram Contreras MD ECG ORDERABLES Performing Organization Address City/[facility] Co de Phone Number MUSE SYSTEM * POCT Glucose (07/14/2017 12:05 PM EDT) Glucose, POC 147 65 - 199 mg/dL [facility] Comment: Supplemental ranges: <140 mg/dL before meals <180 mg/dL all other times of the day Blood specimen (specimen) 07/14/2017 12:05 PM EDT 07/14/2017 12:05 PM EDT Sriram Contreras MD POINT OF CARE TEST ORDERABLES [facility] [place] [address] * POCT Glucose (07/14/2017 8:25 AM EDT) Glucose, POC 140 65 - 199 mg/dL [facility] Comment: Supplemental ranges: <140 mg/dL before meals <180 mg/dL all other times of the day Blood specimen (specimen) 07/14/2017 8:25 AM EDT 07/14/2017 8:25 AM EDT Sriram Contreras MD POINT OF CARE TEST ORDERABLES Performing Organization Address [facility] Co de Phone Number [facility] [place] [address] * (ABNORMAL) Differential, Automated (07/14/2017 12:36 AM EDT) Pathologist [facility] Neutrophil % 90.3 % [facility] Neutrophil Absolute 13.17(H) 1.70 - 6.10 x10(3)/mc L [facility] Lymph % 3.8 % [facility] Lymphocytes Abs 0.6(L) 0.9 - 3.2 x10(3)/mc L [facility] Monocyte % 5.4 % [facility] Monocyte Abs 0.8 0.3 - 0.9 x10(3)/mc L [facility] Eos % 0.0 % [facility] Eosinophils Abs 0.0 0.0 - 0.4 x10(3)/mc L [facility] Basophil % 0.1 % [facility] Baso Absolute 0.0 0.0 - 0.1 x10(3)/mc L [facility] Immature Gran % 0.40 % [facility] Comment: Immature granulocytes(IG's)percentage and absolute count will include metamyelocytes, myelocytes, and promyelocytes. Blood smears from CBCs yielding IG's will be scanned manually for concordance. If this scan disagrees with the automated IG or if promyelocytes are noted, a manual differential will be performed. Immature Gran Absolute 0.06(H) 0.00 - 0.04 x10(3)/mc L [facility] Blood specimen (specimen) 07/14/2017 12:36 AM EDT 07/14/2017 12:41 AM EDT Narrative Resulting Agency Comment Spec In Lab Sriram Contreras MD HEMATOLOGY ORDERAB LES [facility] [place] [address] * (ABNORMAL) Hemogram (07/14/2017 12:36 AM EDT) White Blood Cell 14.6(H) 4.0 - 9.5 x10(3)/ L [facility] Red Blood Cell 4.57(L) 4.58 - 5.54 x10(6)/mc L [facility] Hemoglobin 14.1 13.7 - 16.5 gm/dL [facility] Hematocrit 42.1 40.5 - 48.5 % [facility] Mean Cell Volume 92.1 82.9 - 93.1 [facility] LABORATORY Mean Cell Hemoglobin 30.9 27.5 - 32.1 pg [facility] Mean Cell Hemoglobin Concentration 33.5 32.0 - 35.7 gm/dL [facility] Platelet 157 145 - 357 x10(3)/mc L [facility] RDW Standard Deviation 48.6(H) 36.0 - 45.0 [facility] LABORATORY RDW coefficient of variation 14.4(H) 11.4 - 13.8 % [facility] Mean Platelet Volume 10.2 7.6 - 12.9 [facility] LABORATORY NRBC% auto 0.0 % [facility] LABORATORY NRBC Absolute 0.000 0.000 - 0.000 x10(3)/mc L [facility] Blood specimen (specimen) 07/14/2017 12:36 AM EDT 07/14/2017 12:41 AM EDT Narrative Resulting Agency Comment Spec In Lab Sriram Contreras MD HEMATOLOGY ORDERAB LES Performing Organization Address [facility] de Phone Number [facility] [place] [address] * (ABNORMAL) Magnesium (07/14/2017 12:36 AM EDT) Magnesium 0.65(L) 0.69 - 1.07 mmol/L [facility] Blood specimen (specimen) 07/14/2017 12:36 AM EDT 07/14/2017 12:41 AM EDT Narrative Resulting Agency Comment Spec In Lab Sriram Contreras MD CHEMISTRY ORDERABL ES Performing Organization Address [facility] Phone Number [facility] [place] [address] * Phosphorus (07/14/2017 12:36 AM EDT) Phosphorus 3.3 2.5 - 4.5 mg/dL [facility] Blood specimen (specimen) 07/14/2017 12:36 AM EDT 07/14/2017 12:41 AM EDT Narrative Resulting Agency Comment Spec In Lab Sriram Contreras MD CHEMISTRY ORDERABL ES Performing Organization Address [facility] de Phone Number [facility] [place] [address] * Prealbumin (07/14/2017 12:36 AM EDT) Prealbumin 23 20 - 40 mg/dL [facility] Comment: Prealbumin levels are generally lower in the pediatric population; adult concentrations are usually attained near puberty. Blood specimen (specimen) 07/14/2017 12:36 AM EDT 07/14/2017 12:45 AM EDT Narrative Resulting Agency Comment Spec In Lab Sriram Contreras MD CHEMISTRY ORDERABL ES [facility] [place] [address] * (ABNORMAL) Basic Metabolic Panel (non-fasting) (07/14/2017 12:36 AM EDT) Glucose 161 65 - 199 mg/dL [facility] Comment:Diabetes: >=200 mg/d L plus symptoms Blood Urea Nitrogen 16 10 - 20 mg/dL [facility] Creatinine 0.97 0.80 - 1.50 mg/dL [facility] Comment: Please note that the pediatric reference intervals supplied above were not validated at [facility]. Results from pediatric patients should be interpreted in conjunction to the patient's age, height and muscle mass. Sodium 144 135 - 145 mmol/L [facility] Potassium 4.5 3.5 - 5.0 mmol/L [facility] Comment: result rechecked- Please note: ??Patients with WBC >100,000 may have falsely elevated Potassium levels. ??For accurate Potassium quantification in these patients send serum separator tube (gold top) for subsequent determinations. ??Contact the Clinical Chemistry Laboratory if there are any questions. Chloride 108(H) 98 - 107 mmol/L [facility] Carbon Dioxide 19(L) 22 - 31 mmol/L [facility] Anion Gap 17(H) 5 - 15 mmol/L [facility] Calcium 7.7(L) 8.5 - 10.5 mg/dL [facility] Est Glomerular Filtration Rate >60 >=60 [facility] Comment: [...] the following links into your internet browser. [email or web address] Blood specimen (specimen) 07/14/2017 12:36 AM EDT 07/14/2017 12:41 AM EDT Narrative Resulting Agency Comment Spec In Lab Sriram Contreras MD CHEMISTRY ORDERABL ES [facility] [place] [address] * (ABNORMAL) Basic Metabolic Panel (non-fasting) (07/13/2017 9:33 PM EDT) Glucose 147 65 - 199 mg/dL [facility] Comment:Diabetes: >=200 mg/d L plus symptoms Blood Urea Nitrogen 17 10 - 20 mg/dL [facility] Creatinine 1.16 0.80 - 1.50 mg/dL [facility] Comment: Please note that the pediatric reference intervals supplied above were not validated at [facility]. Results from pediatric patients should be interpreted in conjunction to the patient's age, height and muscle mass. Sodium Not Perf 135 - 145 mmol/L [facility] Comment: Unable to quantitate due to sample hemolysis. ??Sample redraw suggested. Called by: michael Read back by: maddie rucker, Date/Time:07/13/17 22:12. Potassium Not Perf 3.5 - 5.0 mmol/L [facility] Comment: Unable to quantitate due [...] Chloride Not Perf 98 - 107 mmol/L [facility] Comment: Unable to quantitate due to sample hemolysis. ??Sample redraw suggested. Called by: ga, Read back by: Sawdajuan [email or web address], Date/Time:07/13/17 22:12. Carbon Dioxide 18(L) 22 - 31 mmol/L [facility] Anion Gap Not Calculated 5 - 15 mmol/L [facility] Calcium 7.3(L) 8.5 - 10.5 mg/dL [facility] Est Glomerular Filtration Rate >60 >=60 [facility] Comment: This estimated GFR (eGFR) [...] the following links into your internet browser. [email or web address] Blood specimen (specimen) 07/13/2017 9:33 PM EDT 07/13/2017 9:41 PM EDT Narrative Resulting Agency Comment Spec In Lab Sriram Contreras MD CHEMISTRY ORDERABL ES [facility] [place] [address] * XR Chest PA or AP 1 [...] PM EDT 07/13/2017 7:35 PM EDT Narrative [facility] - 07/13/2017 7:35 PM EDT Specimen requisition ordered. ??Separate Pathology report to follow Sriram Contreras MD PATHOLOGY/CYTOLOGY ORDERABLES Performing Organization Address [facility] Co de Phone Number [facility] [place] [address] * Specimen to Pathology (surgical or derm) (07/13/2017 7:05 PM EDT) AP Specimen 07/13/2017 7:05 PM EDT 07/13/2017 7:05 PM EDT Narrative [facility] - 07/13/2017 7:05 PM EDT Specimen requisition ordered. ??Separate Pathology report to follow Sriram Contreras MD PATHOLOGY/CYTOLOGY ORDERABLES Performing Organization Address [facility]/[place] [address] * Specimen to Pathology (surgical or derm) (07/13/2017 6:21 PM EDT) AP Specimen 07/13/2017 6:21 PM EDT 07/13/2017 6:21 PM EDT Narrative [facility] - 07/13/2017 6:21 PM EDT Specimen requisition ordered. ??Separate Pathology report to follow Sriram Contreras MD PATHOLOGY/CYTOLOGY ORDERABLES Performing Organization Address [facility] [place] [address] * Specimen to Pathology (surgical or derm) (07/13/2017 5:30 PM EDT) AP Specimen 07/13/2017 5:30 PM EDT 07/13/2017 5:30 PM EDT Narrative [facility] - 07/13/2017 5:30 PM EDT Specimen requisition ordered. ??Separate Pathology report to follow Sriram Contreras MD PATHOLOGY/CYTOLOGY ORDERABLES Performing Organization Address [facility] [place] [address] * Specimen to Pathology (surgical or derm) (07/13/2017 5:30 PM EDT) AP Specimen 07/13/2017 5:30 PM EDT 07/13/2017 5:30 [address] [facility] LABORATORY - 07/13/2017 5:30 PM EDT Specimen requisition ordered. ??Separate Pathology report to follow Sriram Contreras MD PATHOLOGY/CYTOLOGY ORDERABLES Performing Organization Address [facility] [place] [address] * Specimen to Pathology (surgical or derm) (07/13/2017 5:30 PM EDT) AP Specimen 07/13/2017 5:30 PM EDT 07/13/2017 5:30 [address] [facility] LABORATORY - 07/13/2017 5:30 PM EDT Specimen requisition ordered. ??Separate Pathology report to follow Sriram Contreras MD PATHOLOGY/CYTOLOGY ORDERABLES [facility] [place] [address] * Specimen to Pathology (surgical or derm) (07/13/2017 5:30 PM EDT) AP Specimen 07/13/2017 5:30 PM EDT 07/13/2017 5:30 PM EDT Narrative [facility] LABOR[facility] - 07/13/2017 5:30 PM EDT Specimen requisition ordered. ??Separate Pathology report to follow Sriram Contreras MD PATHOLOGY/CYTOLOGY ORDERABLES Performing Organization Address City/[facility]/[place] [address] * Specimen to Pathology (surgical or derm) (07/13/2017 5:21 PM EDT) AP Specimen 07/13/2017 5:21 PM EDT 07/13/2017 5:21 PM EDT Narrative [facility] LABOR[facility]ORY - 07/13/2017 5:21 PM EDT Specimen requisition ordered. ??Separate Pathology report to follow Sriram Contreras MD PATHOLOGY/CYTOLOGY ORDERABLES Performing Organization Address City/[facility]/ZIP Co de Phone Number [facility] [place] [address] * Specimen to Pathology (surgical or derm) (07/13/2017 5:21 PM EDT) AP Specimen 07/13/2017 5:21 PM EDT 07/13/2017 5:[address] [facility] LABORATORY - 07/13/2017 5:21 PM EDT Specimen requisition ordered. ??Separate Pathology report to follow Sriram Contreras MD PATHOLOGY/CYTOLOGY ORDERABLES Performing Organization Address City/[facility]/[place] [address] * Specimen to Pathology (surgical or derm) (07/13/2017 5:21 PM EDT) AP Specimen 07/13/2017 5:21 PM EDT 07/13/2017 5:21 PM EDT Narrative [facility] - 07/13/2017 5:21 PM EDT Specimen requisition ordered. ??Separate Pathology report to follow Sriram Contreras MD PATHOLOGY/CYTOLOGY ORDERABLES Performing Organization Address [facility] [place] [address] * Specimen to Pathology (surgical or derm) (07/13/2017 5:16 PM EDT) AP Specimen 07/13/2017 5:16 PM EDT 07/13/2017 5:16 [address] [facility] LABORATORY - 07/13/2017 5:16 PM EDT Specimen requisition ordered. ??Separate Pathology report to follow Sriram Contreras MD PATHOLOGY/CYTOLOGY ORDERABLES Performing Organization Address [facility] [place] [address] * Specimen to Pathology (surgical or derm) (07/13/2017 5:05 PM EDT) AP Specimen 07/13/2017 5:05 PM EDT 07/13/2017 5:[address] [facility] LABORATORY - 07/13/2017 5:05 PM EDT Specimen requisition ordered. ??Separate Pathology report to follow Sriram Contreras MD PATHOLOGY/CYTOLOGY ORDERABLES Performing Organization Address [facility] [place] [address] * Specimen to Pathology (surgical or derm) (07/13/2017 5:05 PM EDT) AP Specimen 07/13/2017 5:05 PM EDT 07/13/2017 5:[address] [facility] LABORATORY - 07/13/2017 5:05 PM EDT Specimen requisition ordered. ??Separate Pathology report to follow Sirram Contreras MD PATHOLOGY/[place] [address] * Specimen to Pathology (surgical or derm) (07/13/2017 4:39 PM EDT) AP Specimen 07/13/2017 4:39 PM EDT 07/13/2017 4:39 PM EDT Narrative [facility] LABOR[facility]ORY - 07/13/2017 4:39 PM EDT Specimen requisition ordered. ??Separate Pathology report to follow Sriram Contreras MD PATHOLOGY/CYTOLOGY ORDERABLES Performing Organization Address City/[facility]/[place] [address] * Specimen to Pathology (surgical or derm) (07/13/2017 4:35 PM EDT) AP Specimen 07/13/2017 4:35 PM EDT 07/13/2017 4:35 PM EDT Narrative [facility] LABOR[facility]ORY - 07/13/2017 4:35 PM EDT Specimen requisition ordered. ??Separate Pathology report to follow Sriram Contreras MD PATHOLOGY/CYTOLOGY ORDERABLES Performing Organization Address City/[facility]/[place] [address] * Specimen to Pathology (surgical or derm) (07/13/2017 4:35 PM EDT) AP Specimen 07/13/2017 4:35 PM EDT 07/13/2017 4:[address] [facility] LABORATORY - 07/13/2017 4:35 PM EDT Specimen requisition ordered. ??Separate Pathology report to follow Sriram Contreras MD PATHOLOGY/CYTOLOGY ORDERABLES Performing Organization Address [facility] [place] [address] * Specimen to Pathology (surgical or derm) (07/13/2017 3:52 PM EDT) AP Specimen 07/13/2017 3:52 PM EDT 07/13/2017 3:52 PM EDT Narrative [facility] - 07/13/2017 3:52 PM EDT Specimen requisition ordered. ??Separate Pathology report to follow Sriram Contreras MD PATHOLOGY/CYTOLOGY ORDERABLES Performing Organization Address [facility] [place] [address] * Specimen to Pathology (surgical or derm) (07/13/2017 3:52 PM EDT) AP Specimen 07/13/2017 3:52 PM EDT 07/13/2017 3:52 PM EDT Narrative [facility] - 07/13/2017 3:52 PM EDT Specimen requisition ordered. ??Separate Pathology report to follow Sriram Contreras MD PATHOLOGY/CYTOLOGY ORDERABLES Performing Organization Address [facility] [place] [address] * (ABNORMAL) BLOOD GAS 2 ARTERIAL (07/13/2017 3:46 PM EDT) pH, Arterial 7.31(L) 7.35 - 7.45 [facility] PCO2, Arterial 37 35 - 45 mmHg [facility] PO2, Arterial 103 85 - 104 mmHg [facility] Bicarbonate, Arterial 17.8(L) 20.0 - 26.0 mmol/L [facility] Base Excess, Arterial -8.5(L) -3.0 - 3.0 mmol/L [facility] Hgb Blood Gas 15.1 13.7 - 16.5 gm/dL [facility] Oxyhemoglobin, Arterial 96.6 94.0 - 97.0 % [facility] Carboxyhemoglob in, Arterial 0.4 % [facility] Comment: Nonsmokers: 0.5-1.5% COHB Smokers: Variable, but usually less than 10% Toxic: 20-30% COHB Lethal: Greater than 60% COHB Methemoglobin, Arterial 0.3 <=1.5 % [facility] Na Whole Blood 139 135 - 145 mmol/L [facility] K Whole Blood 4.5 3.5 - 5.0 mmol/L [facility] Comment: Please note: Patients with WBC >100,000 may have falsely elevated Potassium levels. Contact the Clinical Chemistry Laboratory if there are any questions. ICa Whole Blood 1.12(L) 1.15 - 1.33 mmol/L [facility] Comment: Note: ??Total bilirubin higher than 20 mg/dL may lead to falsely low ionized calcium. CL Whole Blood 110(H) 98 - 107 mmol/L [facility] Gluc Whole Bld 118 65 - 199 mg/dL [facility] Comment:Diabetes: >=200 mg/d L plus symptoms. Lactate WB 2.9(H) 0.5 - 2.2 mmol/L [facility] Blood specimen (specimen) 07/13/2017 3:46 PM EDT 07/13/2017 3:46 PM EDT Sriram Contreras MD POINT OF CARE TEST ORDERABLES Performing Organization Address City/State/[facility] Co de Phone Number [facility] [place] [address] * (ABNORMAL) BLOOD GAS 2 ARTERIAL (07/13/2017 2:06 PM EDT) pH, Arterial 7.32(L) 7.35 - 7.45 [facility] PCO2, Arterial 32(L) 35 - 45 mmHg [facility] PO2, Arterial 96 85 - 104 mmHg [facility] Bicarbonate, Arterial 16.0(L) 20.0 - 26.0 mmol/L [facility] Base Excess, Arterial -10.1(L) -3.0 - 3.0 mmol/L [facility] Hgb Blood Gas 14.0 13.7 - 16.5 gm/dL [facility] Oxyhemoglobin, Arterial 96.1 94.0 - 97.0 % [facility] Carboxyhemoglob in, Arterial 1.1 % [facility] Comment: Nonsmokers: 0.5-1.5% COHB Smokers: Variable, but usually less than 10% Toxic: 20-30% COHB Lethal: Greater than 60% COHB Methemoglobin, Arterial 0.3 <=1.5 % [facility] Na Whole Blood 139 135 - 145 mmol/L [facility] K Whole Blood 3.8 3.5 - 5.0 mmol/L [facility] Comment: Please note: Patients with WBC >100,000 may have falsely elevated Potassium levels. Contact the Clinical Chemistry Laboratory if there are any questions. ICa Whole Blood 1.02(L) 1.15 - 1.33 mmol/L [facility] Comment: Note: ??Total bilirubin higher than 20 mg/dL may lead to falsely low ionized calcium. CL Whole Blood 115(H) 98 - 107 mmol/L [facility] Gluc Whole Bld 111 65 - 199 mg/dL [facility] Comment:Diabetes: >=200 mg/d L plus symptoms. Lactate WB 2.5(H) 0.5 - 2.2 mmol/L [facility] Blood specimen (specimen) 07/13/2017 2:06 PM EDT 07/13/2017 2:06 PM EDT Sriram Contreras MD POINT OF CARE TEST ORDERABLES [facility] [place] [address] * (ABNORMAL) Comprehensive metabolic panel (non-fasting) (07/13/2017 12:56 PM EDT) Glucose 155 65 - 199 mg/dL [facility] Comment:Diabetes: >=200 mg/d L plus symptoms Blood Urea Nitrogen 17 10 - 20 mg/dL [facility] Creatinine 1.06 0.80 - 1.50 mg/dL [facility] Comment: Please note that the pediatric reference intervals supplied above were not validated at [facility]. Results from pediatric patients should be interpreted in conjunction to the patient's age, height and muscle mass. Sodium 142 135 - 145 mmol/L [facility] Potassium 5.7(H) 3.5 - 5.0 mmol/L [facility] Comment: Please note: ??Patients with WBC >100,000 may have falsely elevated Potassium levels. ??For accurate Potassium quantification in these patients send serum separator tube (gold top) for subsequent determinations. ??Contact the Clinical Chemistry Laboratory if there are any questions. Chloride 108(H) 98 - 107 mmol/L [facility] Carbon Dioxide 20(L) 22 - 31 mmol/L [facility] Anion Gap 14 5 - 15 mmol/L [facility] Calcium 7.9(L) 8.5 - 10.5 mg/dL [facility] Protein, Total 6.2 6.1 - 8.0 gm/dL [facility] Albumin 3.6 3.2 - 5.2 gm/dL [facility] Aspartate Aminotransferase 15 0 - 39 unit/L [facility] Alanine Aminotransferase 13 0 - 55 unit/L [facility] Alkaline Phosphatase 70 40 - 120 unit/L [facility] Bilirubin, Total 0.2 0.2 - 1.3 mg/dL [facility] Est Glomerular Filtration Rate >60 >=60 [facility] Comment: This estimated GFR (eGFR) [...] the following links into your internet browser. [email or web address] Blood specimen (specimen) 07/13/2017 12:56 PM EDT 07/13/2017 1:02 PM EDT Narrative Resulting Agency Comment Spec In Lab Sriram Contreras MD CHEMISTRY ORDERABL ES [facility] [place] [address] * (ABNORMAL) BLOOD GAS 2 ARTERIAL (07/13/2017 12:15 PM EDT) pH, Arterial 7.34(L) 7.35 - 7.45 [facility] PCO2, Arterial 39 35 - 45 mmHg [facility] PO2, Arterial 68(L) 85 - 104 mmHg [facility] Bicarbonate, Arterial 20.4 20.0 - 26.0 mmol/L [facility] Base Excess, Arterial -5.4(L) -3.0 - 3.0 mmol/L [facility] Hgb Blood Gas 15.8 13.7 - 16.5 gm/dL [facility] Oxyhemoglobin, Arterial 91.8(L) 94.0 - 97.0 % [facility] Carboxyhemoglob in, Arterial 0.9 % [facility] Comment: Nonsmokers: 0.5-1.5% COHB Smokers: Variable, but usually less than 10% Toxic: 20-30% COHB Lethal: Greater than 60% COHB Methemoglobin, Arterial 0.3 <=1.5 % [facility] Na Whole Blood 138 135 - 145 mmol/L [facility] K Whole Blood 5.7(H) 3.5 - 5.0 mmol/L [facility] Comment: Please note: Patients with WBC >100,000 may have falsely elevated Potassium levels. Contact the Clinical Chemistry Laboratory if there are any questions. ICa Whole Blood 1.17 1.15 - 1.33 mmol/L [facility] Comment: Note: ??Total bilirubin higher than 20 mg/dL may lead to falsely low ionized calcium. CL Whole Blood 109(H) 98 - 107 mmol/L [facility] Gluc Whole Bld 125 65 - 199 mg/dL [facility] Comment:Diabetes: >=200 mg/d L plus symptoms. Lactate WB 3.7(H) 0.5 - 2.2 mmol/L [facility] Blood specimen (specimen) 07/13/2017 12:15 PM EDT 07/13/2017 12:15 PM EDT Sriram Contreras MD POINT OF CARE TEST ORDERABLES [facility] [place] [address] * Surgical Pathology Report (07/13/2017 12:04 PM EDT) Final Diagnosis [id number] ? 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 07/21/2017 9:57 AM EDT [facility] MOUTH REGION STRUCTURE / Unknown [...] Contreras MD PATHOLOGY/CYTOLOGY ORDERABLES Performing Organization Address City/[facility]/[place] [address] * Specimen to Pathology (surgical or derm) (07/13/2017 12:02 PM EDT) AP Specimen 07/13/2017 12:0 2 PM EDT 07/13/2017 12:02 PM EDT Narrative [facility] - 07/13/2017 12:02 PM EDT Specimen requisition ordered. ??Separate Pathology report to follow Sriram Contreras MD PATHOLOGY/CYTOLOGY ORDERABLES Performing Organization Address City/[facility] [place] [address] * (ABNORMAL) BLOOD GAS 2 ARTERIAL (07/13/2017 10:35 AM EDT) pH, Arterial 7.31(L) 7.35 - 7.45 [facility] PCO2, Arterial 45 35 - 45 mmHg [facility] PO2, Arterial 87 85 - 104 mmHg [facility] Bicarbonate, Arterial 22.2 20.0 - 26.0 mmol/L [facility] Base Excess, Arterial -4.0(L) -3.0 - 3.0 mmol/L [facility] Hgb Blood Gas 15.6 13.7 - 16.5 gm/dL [facility] Oxyhemoglobin, Arterial 95.0 94.0 - 97.0 % [facility] Carboxyhemoglob in, Arterial 0.9 % [facility] Comment: Nonsmokers: 0.5-1.5% COHB Smokers: Variable, but usually less than 10% Toxic: 20-30% COHB Lethal: Greater than 60% COHB Methemoglobin, Arterial 0.0 <=1.5 % [facility] Na Whole Blood 138 135 - 145 mmol/L [facility] K Whole Blood 5.0 3.5 - 5.0 mmol/L [facility] Comment: Please note: Patients with WBC >100,000 may have falsely elevated Potassium levels. Contact the Clinical Chemistry Laboratory if there are any questions. ICa Whole Blood 1.20 1.15 - 1.33 mmol/L [facility] Comment: Note: ??Total bilirubin higher than 20 mg/dL may lead to falsely low ionized calcium. CL Whole Blood 108(H) 98 - 107 mmol/L [facility] Gluc Whole Bld 119 65 - 199 mg/dL [facility] Comment:Diabetes: >=200 mg/d L plus symptoms. Lactate WB 2.1 0.5 - 2.2 mmol/L [facility] Blood specimen (specimen) 07/13/2017 10:35 AM EDT 07/13/2017 10:35 AM EDT Sriram Contreras MD POINT OF CARE TEST ORDERABLES Performing Organization Address City/[facility]/ZIP Co de Phone Number [facility] [place] [address] * ABORH Recheck Status (07/13/2017 6:27 AM EDT) ABORH Recheck Order Order Placed [facility] ABORH Type Recheck Complete [facility] Blood specimen (specimen) 07/13/2017 6:27 AM EDT 07/13/2017 6:38 AM EDT Narrative Resulting Agency Comment Spec In Lab Sriram Contreras MD BLOOD BANK LAB ORD ERABLES Performing Organization Address City/[facility]/ZIP Co de Phone Number [facility] [place] [address] * Antibody screen (07/13/2017 6:27 AM EDT) Ab Screen Interp Negative [facility] Expires at [id number] on: 07/16/2017 [facility] Blood specimen (specimen) 07/13/2017 6:27 AM EDT 07/13/2017 6:43 AM EDT Narrative Resulting Agency Comment Spec In Lab Sriram Contreras MD BLOOD BANK LAB ORD ERABLES Performing Organization Address City/[facility]/ZIP Co de Phone Number [facility] [place] [address] * ABO/Rh Typing (07/13/2017 6:27 AM EDT) ABORH Type O Neg [facility] Blood specimen (specimen) 07/13/2017 6:27 AM EDT 07/13/2017 6:43 AM EDT Narrative Resulting Agency Comment Spec In Lab Sriram Contreras MD BLOOD BANK LAB ORD ERABLES Performing Organization Address City/[facility] Co de Phone Number [facility] [place] [address] documented in this encounter Visit Diagnoses Not [...] Radha Colon, RN)1320 (Given - Provider: Radha Colon RN) chlorhexidine (PERIDEX) 0.12 % oral solution 15 mL 15 mL, Oral, 2 TIMES DAILY, First dose on Wed07/13/17 at 2115, Until Discontinued, Swab oral cavity. Ventilator-associated pneumonia prophylaxis, Routine 1055 (Given - Provider: Jeannie Stiles, BRENNA)2053 (Given - Provider: Dixie Randhawa RN) 0936 (Given - Provider: Jv Valdez, BRENNA)213 (Given - Provider: Abeba Porter, BRENNA) 0923 (Given - Provider: Radha Colon RN) enoxaparin (LOVENOX) injection 100 mg 100 mg, Subcutaneous, EVERY 12 HOURS SCHEDULED (2 times per day), First dose on Wed07/27/17 at 1700, Until Discontinued, Routine 1608 (Given - Provider: Jeannie Stiles RN) 0935 (Given - Provider: Jv Valdez, BRENNA)2135 (Given - Provider: Abeba Porter, BRENNA) 1022 [...] Randhawa RN) 0935 (Given - Provider: Jv Valdez RN)1235 (Given - Provider: Jeannie Stiles, BRENNA)1700 (Given [...] 0923 (See Alternative - Provider: Radha Colon, BERNNA) pantoprazole (PROTONIX) tablet 40 mg(Linked Group 1) [...] Lorna Browne RN)0800 (Stopped - Provider: Jeannie Stiles, BRENNA)1125 (New Bag - Provider: Jeannie Stiles, BRENNA)1525 [...] PRN, Starting on Wed07/17/17 at 1009, Until Shabana 07/29/17 at 1535, [...] Embolism documented in this encounter Care Teams Coding Clerks Supervisor Relationship Specialty Start Date End Date Jovon Sifuentes MD [address] [place] [address] PCP - General 09/30/10 09/10/21 documented as of this encounter
--- OUTSIDE RECORDS SUMMARY | 2024-08-28 12:57 | XMS_ITS | Encounter Summary ---
[place] [address] Care Team Providers Care Product Safety Tester Name Role Phone Jovon Sifuentes MD Primary Care Provider Reason for Visit * Diagnostic Test (Routine) - Closed Specialty Diagnoses / Procedures Referred By Contac t Referred To Contact Radiology Diagnoses Other acute pulmonary embolism without acute cor pulmonale Carcinoma of base of tongue Procedures PET CT Standard Skull Base to Mid-Thigh Kaiden Dos Santos MD [facility] [place] [address] [place] [address] Referral ID Status Reason Start Date Expiration Date V isits Requested Visits Authorized [id number] Closed Specialty Service Requested 06/10/2017 08/08/2017 2 2 Encounter Details Date Type Department Care Team (Latest Contact Info) Description 06/17/2017 12:03 PM EDT - 06/17/2017 11:59 PM EDT Hospital En[place] [address] Kaiden Dos Santos MD [address] [place] [address] [place] [address] Discharge Disposition: Home Social History Tobacco Use Types Packs/Day Years Used Date Smoking Tobacco: Former Cigarettes 1 1 9 - 1995 Pipe Smokeless Tobacco: [...] 10:20 AM EST Office [place] [address] Sriram Contreras MD [facility] [place] [address] 10/31/2024 1:30 PM EST Office Visit Hematology/Oncology at [address] [phone] Dmitry Bhatti MD [facility] DR HEMATOLOGY [place] [address] Ellen Mcrae APRN [facility] [place] [address] 10/31/2024 2:00 PM EST Infusion Hematology Oncology at [address] [phone] documented as of this encounter Procedures Procedure [...] Thank you for referring this patient to [facility]. I have personally reviewed the image(s) and the residents interpretation and agree with the findings, Lizy Padgett at 06/17/2017 3:54 PM Narrative 06/17/2017 3:54 PM EDT EXAMINATION: PET CT STANDARD SKULL BASE TO MID-THIGH CLINICAL HISTORY: head/neck cancer, initial staging exam TECHNIQUE: Following IV injection of 98-miafdw-6-deoxyglucose (FDG) a standard uptake of approximately 60 [...] staging exam TECHNIQUE: Following IV injection of 05-cjnfqt-2-deoxyglucose (FDG) astandard uptake of approximately 60 minutes, [...] Thank you for referring this patient to [facility]. I have personally reviewed the image(s) and the residents interpretationand agree with the findings, Lizy Lorin at 06/17/2017 3:54 PM Kaiden Dos Santos MD IMG PET ORDERABLES documented in this encounter Visit Diagnoses Not on filedocumented in this encounter Care Teams Product Safety Tester Relationship Specialty Start Date End Date Jovon Sifuentes MD [address] [place] [address] PCP - General 09/30/10 09/10/21 documented as of this encounter
--- OUTSIDE RECORDS SUMMARY | 2024-08-28 12:57 | XMS_ITS | Encounter Summary ---
Author Organization [facility] [place] [address] Care Team Providers Care Agricultural Mechanic Name Role Phone Jovon Sifuentes MD Primary Care Provider [phone] Encounter Details Date Type Department Care Team (Latest Contact Info) Description 03/29/2017 - 03/29/2017 11:59 PM EDT Hospital Encounter Radiology Library at [facility] [place] [address] Zafar Madera MD [facility] [place] [address] Pain Discharge Disposition: Home Social History Tobacco [...] 10:20 AM EST Office Visit [facility]ol[facility]ology at [facility] [place] [address] Sriram Contreras MD [facility] [place] [address] 10/31/2024 1:30 PM EST Office Visit Hematology/Oncology at [address] [phone] Dmitry Bhatti MD [facility] [place] [address] Ellen Mcrae APRN [facility] [place] [address] 10/31/2024 2:00 PM EST Infusion Hematology Oncology at [address] [phone] documented as of this encounter Procedures Procedure Name Priority Date/Time Associated Diagnosis Comments FILM LIBRARY STORAGE ONLY CT CHEST Routine 03/29/2017 12:00 AM EDT Pain documented in this encounter Results * Film Library- Storage Only CT Chest (03/29/2017 12:00 AM EDT) Narrative [facility] - 04/15/2017 11:52 AM EDT This exam is for storage only and is auto-finalizing. Zafar Madera MD IMG FILM LIBRARY OR DERABLES Performing Organization Address City/State/[facility] Co de Phone Number [place], [place] documented in this encounter Visit Diagnoses Diagnosis Pain Generalized pain documented in this encounter Care Teams Agricultural Mechanic Relationship Specialty Start Date End Date Jovon Sifuentes MD [address] [place] [address] PCP - General 09/30/10 09/10/21 documented as of this encounter
--- OUTSIDE RECORDS SUMMARY | 2024-08-28 12:57 | XMS_ITS | Encounter Summary ---
[place] [address] Care Team Providers Care Clamshell Operator Name Role Phone Jovon Sifuentes MD Primary Care Provider [phone] Reason for Visit * Auth/Cert Specialty Diagnoses / Procedures Referred By Contbela t Referred To Contact Diagnoses base of tongue cancer Procedures PRO LARYNGOSCOPY, DIRECT, DX, OP MICROSCOP PRO BIOPSY OROPHARYNX LARYNGOSCOPY, WITH MICROSCOPE (WRVU 2.57) BIOPSY, OROPHARYNX (WRVU 1.44) Referral ID Status Reason Start Date Expiration Date Visits Re quested Visits Authorized [id number] 1 1 Encounter Details Date Type Department Care Team (Latest Contact Info) Description 05/24/2017 7:17 AM EDT - 05/24/2017 12:45 PM EDT Hospital Encounter [place] [address] Keiko Madera MD [facility] [place] [address] Discharge Disposition: Home Social History Tobacco Use [...] the next week, call the clinic at [phone] to confirm your appointment, or for questions [...] Contact Information ENT triage nurse ENT doctor conductor road freight [phone] (after hours) documented in this encounter Medications [...] Madera MD - 05/24/2017 10:22 AM EDT [facility] [place] Operative Note Patient Name: Jose Bee : [id number] MR#: [id number] Case Date: 05/24/2017 Surgeon: Surgeon(s) and Role: [...] 10:20 AM EST Office [place] [address] Sriram Contreras MD [facility] [place] [address] 10/31/2024 1:30 PM EST Office Visit Hematology/Oncology at [address] [phone] Dmitry Bhatti MD [facility] DR [place] [address] Ellen Mcrae APRN [facility] [place] [address] 10/31/2024 2:00 PM EST Infusion Hematology Oncology at [address] [phone] documented as of this encounter Procedures Procedure [...] AM EDT 05/24/2017 10:09 AM EDT Narrative [facility] - 05/24/2017 10:09 AM EDT Specimen requisition ordered. ??Separate Pathology report to follow Keiko Madera MD PATHOLOGY/[place] [address] * Specimen to Pathology (surgical or derm) (05/24/2017 10:09 AM EDT) AP Specimen 05/24/2017 10:0 9 AM EDT 05/24/2017 10:09 AM EDT Narrative [facility] - 05/24/2017 10:09 AM EDT Specimen requisition ordered. ??Separate Pathology report to follow Keiko Madera MD PATHOLOGY/CYTOLOGY ORDERABLES Performing Organization Address City/[facility]/[place] [address] * Specimen to Pathology (surgical or derm) (05/24/2017 10:08 AM EDT) AP Specimen 05/24/2017 10:0 8 AM EDT 05/24/2017 10:08 AM EDT Narrative [facility] - 05/24/2017 10:08 AM EDT Specimen requisition ordered. ??Separate Pathology report to follow Keiko Madera MD PATHOLOGY/CYTOLOGY ORDERABLES Performing Organization Address City/[facility]/[place] [address] * Specimen to Pathology (surgical or derm) (05/24/2017 10:08 AM EDT) AP Specimen 05/24/2017 10:0 8 AM EDT 05/24/2017 10:08 AM EDT Narrative [facility] - 05/24/2017 10:08 AM EDT Specimen requisition ordered. ??Separate Pathology report to follow Keiko Madera MD PATHOLOGY/CYTOLOGY ORDERABLES Performing Organization Address [facility] [place] [address] * Specimen to Pathology (surgical or derm) (05/24/2017 10:08 AM EDT) AP Specimen 05/24/2017 10:0 8 AM EDT 05/24/2017 10:08 AM EDT Narrative [facility] - 05/24/2017 10:08 AM EDT Specimen requisition ordered. ??Separate Pathology report to follow Keiko Madera MD PATHOLOGY/CYTOLOGY ORDERABLES Performing Organization Address City/[facility]/[place] [address] * Specimen to Pathology (surgical or derm) (05/24/2017 10:08 AM EDT) AP Specimen 05/24/2017 10:0 8 AM EDT 05/24/2017 10:08 AM EDT [facility] - 05/24/2017 10:08 AM EDT Specimen requisition ordered. ??Separate Pathology report to follow Keiko Madera MD PATHOLOGY/CYTOLOGY ORDERABLES Performing Organization Address City/[facility]/ZIP Co de Phone Number [facility] [place] [address] * Specimen to Pathology (surgical or derm) (05/24/2017 10:08 AM EDT) AP Specimen 05/24/2017 10:0 8 AM EDT 05/24/2017 10:08 AM EDT Narrative [facility] - 05/24/2017 10:08 AM EDT Specimen requisition ordered. ??Separate Pathology report to follow Keiko Madera MD PATHOLOGY/[place] [address] * Surgical Pathology Report (05/24/2017 10:07 AM EDT) Final Diagnosis [id number] ?Location: [facility]; [facility]; A The signing pathologist has (i) examined [...] developed and its performance determined by the [facility] [place] laboratory for Clinical Genomics and Advanced Technology (CGAT). It has not been cleared or approved by the U.S. Food and Drug Administration. This test is used for clinical purposes and should not be considered as investigational or for research purposes. The [facility] is certified by the Clinical Laboratory Improvement Act of 1988 and as such is allowed to perform high complexity clinical testing. References: ?? Ila TW, Diego . Biochemistry 1991;30:1552-1810; Cash NEWTONM, et al. J pathol 1999;189:12-19; [place] PE, et al. J Clin Microbiol 2000 ?;38 ??:357-361. Reviewed by: Roel Heredia, PhD, [facility], Director-[facility] ([facility], 06/04/17 08:23) Electronically signed [...] ??Soft, red tissues . Sections/Processing: (T1) ??sns 06/07/2017 9:24 AM EDT [facility] BILATERAL PALATINE TONSILS / Unknown 05/24/2017 10:07 AM EDT 05/24/2017 10:07 AM EDT MOUTH REGION STRUCTURE / Unknown 05/24/2017 10:07 AM EDT 05/24/2017 10:07 AM EDT BILATERAL PALATINE TONSILS / Unknown 05/24/2017 10:07 AM EDT 05/24/2017 10:07 AM EDT MOUTH REGION STRUCTURE / Unknown 05/24/2017 10:07 AM EDT 05/24/2017 10:07 AM EDT MOUTH REGION STRUCTURE / Unknown 05/24/2017 10:07 AM EDT 05/24/2017 10:07 AM EDT MOUTH REGION STRUCTURE / Unknown 05/24/2017 10:07 AM EDT 05/24/2017 10:07 AM EDT BILATERAL PALATINE TONSILS / Unknown 05/24/2017 10:07 AM EDT 05/24/2017 10:07 AM EDT Keiko Madera MD PATHOLOGY/CYTOLOGY ORDERABLES Performing Organization Address City/State/[facility] Co de Phone Number [facility] [place] [address] * Surgical Pathology Report (05/24/2017 10:07 AM EDT) Surgical Pathology Report [id number] ?Location: [facility]; [facility]; A The signing pathologist has (i) examined [...] ??Soft, red tissues . Sections/Processing: (T1) ??sns [facility] 05/24/2017 10:0 7 AM EDT Keiko Madera MD PATHOLOGY/CYTOLOGY ORDERABLES [facility] [place] [address] documented in this encounter Visit Diagnoses Not [...] MD) documented in this encounter Care Teams Clamshell Operator Relationship Specialty Start Date End Date Jovon Sifuentes MD [address] [place] [address] PCP - General 09/30/10 09/10/21 documented as of this encounter
--- OUTSIDE RECORDS SUMMARY | 2024-08-28 12:57 | XMS_ITS | Encounter Summary ---
[place] [address] Care Team Providers Care Guest Services Name Role Phone Jovon Sifuentes MD Primary Care Provider Reason for Referral * Consultation (Routine) - Specialty Diagnoses / Procedures Referred By Huma valladares Referred To Contact Hematology and Oncology Diagnoses Cancer of base of tongue Zafar Madera MD [facility] [place] [address] [facility] [address] [place] [address] Referral ID Status Reason Start Date Expiration Date V isits Requested Visits Authorized Consult, Test & Treat 04/27/2017 04/27/2018 1 1 * Consultation (Routine) - Closed Specialty Diagnoses / Procedures Referred By Huma valladares Referred To Contact Radiation Oncology Diagnoses Cancer of base of tongue Zafar Madera MD [facility] [place] [address] [facility] [place] [address] Referral ID Status Reason Start Date Expiration Date V isits Requested Visits Authorized Closed Consult, Test & Treat 04/27/2017 04/27/2018 1 1 Reason for Visit * Reason Comments Follow-up Encounter Details Date Type Department Care Team (Late st Contact Info) Description 04/27/2017 11:40 AM EDT Office [place] [address] Zafar Madera MD [facility] [place] [address] Cancer of base of tongue Social History [...] 10:20 AM EST Office [place] [address] Sriram Contreras MD [facility] [place] [address] 10/31/2024 1:30 PM EST Office Visit Hematology/Oncology at [address] [phone] Dmitry Bhatti MD [facility] DR HEMATOLOGY [place] [address] Ellen Mcrae APRN [facility] [place] [address] 10/31/2024 2:00 PM EST Infusion Hematology Oncology at [address] [phone] Scheduled Referrals Name Type Priority Associated Diagnoses [...] tongue documented in this encounter Care Teams Guest Services Relationship Specialty Start Date End Date Jovon Sifuentes MD [address] [place] [address] PCP - General 09/30/10 09/10/21 documented as of this encounter
--- OUTSIDE RECORDS SUMMARY | 2024-08-28 12:57 | XMS_ITS | Encounter Summary ---
[place] [address] Care Team Providers Care Manager Business Name Role Phone Jovon Sifuentes MD Primary Care Provider Reason for Visit * Reason Comments Follow Up Surgery Laryngoscopy w/biops y 05/24/17 Encounter Details Date Type Department Care Team (Late st Contact Info) Description 06/03/2017 2:20 PM EDT Office [place] [address] Zafar Madera MD [facility] [place] [address] Tonsil cancer Social History Tobacco Use Types [...] Date ??? ACHILLES TENDON SURGERY Right 1996 [facility] [place] ??? KNEE ARTHROSCOPY christelle. [facility] ??? PRO BIOPSY OROPHARYNX N/A 05/24/2017 BIOPSY, OROPHARYNX (WRVU 1.44) performed by Zafar Madera MD at [facility] ??? PRO LARYNGOSCOPY, DIRCT, OP SCOPE, BIOPSY N/A 05/24/2017 LARYNGOSCOPY, MICROSCOPE, WITH BIOPSY (WRVU 3.55) performed by Zafar Madera MD at [facility] ??? QUADRACEPS TENDON REPAIR Right 04/2016 [facility] ??? TONSILLECTOMY Current Outpatient Prescriptions: ??? [...] education: 17 Occupational History ??? 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 He is to Briana for 40 yrs. 4 children - All live in different states - [place] Wang Enjoys raising Beef Cattle and doing Civil War and Living History and shoot Black powder/Antique firearms. He enjoys builiding Firearms/Blacksmithing - Charcoal, [place], etc. Review of Systems Objective: Physical Exam [...] 10:20 AM EST Office [place] [address] Sriram Contreras MD [facility] [place] [address] 10/31/2024 1:30 PM EST Office Visit Hematology/Oncology at [address] [phone] Dmitry Bhatti MD [facility] DR [place] [address] Ellen Mcrae APRN [facility] [place] [address] 10/31/2024 2:00 PM EST Infusion Hematology Oncology at [address] [phone] documented as of this encounter Visit Diagnoses Diagnosis Tonsil cancer Malignant neoplasm of tonsil documented in this encounter Care Teams Manager Business Relationship Specialty Start Date End Date Jovon Sifuentes MD [address] [place] [address] PCP - General 09/30/10 09/10/21 documented as of this encounter
--- OUTSIDE RECORDS SUMMARY | 2024-08-28 12:57 | XMS_ITS | Encounter Summary ---
[place] [address] Care Team Providers Care Site Technician Name Role Phone Jovon Sifuentes MD Primary Care Provider Encounter Details Date Type Department Care Team (Latest Contact Info) Description 06/18/2017 Multidisciplinary Ca re Committee [place]ematology [place] [address] Kaiden Dos Santos MD [address] [place] [address] [place] [address] Social History Tobacco Use Types Packs/Day Years [...] 10:20 AM EST Office [place] [address] Sriram Contreras MD [facility] [place] [address] 10/31/2024 1:30 PM EST Office Visit Hematology/Oncology at [address] [phone] Dmitry Bhatti MD [facility] H[place]ATOLOGY [place] [address] Ellen Mcrae APRN [facility] [place] [address] 10/31/2024 2:00 PM EST Infusion Hematology Oncology at [address] [phone] documented as of this encounter Visit Diagnoses Not on filedocumented in this encounter Care Teams Site Technician Relationship Specialty Start Date End Date Jovon Sifuentes MD [address] [place] [address] PCP - General 09/30/10 09/10/21 documented as of this encounter
--- OUTSIDE RECORDS SUMMARY | 2024-08-28 12:57 | XMS_ITS | Encounter Summary ---
[place] [address] Care Team Providers Care Public Employment Mediator Name Role Phone Jovon Sifuentes MD Primary Care Provider [phone] Reason for Referral * Consultation (Urgent) - Closed Specialty Diagnoses / Procedures Referred By Huma valladares Referred To Contact Hematology and Oncology Diagnoses Throat mass Zafar Madera MD [facility] [place] [address] [facility] [address] [place] [address] Referral ID Status Reason Start Date Expiration Date V isits Requested Visits Authorized [id number] Closed Consult, Test & Treat 04/07/2017 04/07/2018 [...] smoking and dysphagia Celso Elkins, DO [address] [place] [address] Zafar Madera MD [facility] [place] [address] Referral ID Status Reason Start Date Expiration Date Visits Re quested Visits Authorized [id number] Closed 03/17/2017 03/17/2018 1 1 Encounter Details Date Type Department Care Team (Late st Contact Info) Description 04/06/2017 3:00 PM EDT Office [place] [address] Zafar Madera MD [facility] [place] [address] Throat mass Social History Tobacco Use Types [...] Cheney PA - 04/06/2017 3:00 PM EDT [facility] Otolaryngology - Head and Neck Surgery Hilton Cheney PA-C 04/06/17 10:11 PM [address] [address] Office Patient Name: Jose Bee Date of [...] felt something in his throat for years. [place] worsened in last couple of months. Feels lump on side of throat when swallowing. Sometimes food or pills will get hung up while swallowing. Had difficulty breathing recently, felt related to recent pneumonia and pulmonary embolism diagnoses. Treated with antibiotics and Eliquis respectively. Increased throat clearing. Occasional bilateral ear pain and itching, right > left. Went to ENT in [facility], ordered CT:right throat mass. Denies [...] of 30 drinks/week x 15 years. Occupation: [employer]. [place] [facility] [phone] Social History Social History ??? Marital status: [...] and discuss/plan the biopsyprocedure. Hilton Cheney PA-C [place], [place] [phone] Office @Today@ 10:11 PM * Zafar Madera [...] 10:20 AM EST Office [place] [address] Sriram Contreras MD [facility] [place] [address] 10/31/2024 1:30 PM EST Office Visit Hematology/Oncology at [address] [phone] Dmitry Bhatti MD [facility] [address] [place] [address] Ellen Mcrae APRN [facility] [place] [address] 10/31/2024 2:00 PM EST Infusion Hematology Oncology at [address] [phone] Scheduled Referrals Name Type Priority Associated Diagnoses Order Schedule Referral to Hematology and Oncology Outpatient Referral Routine Throat mass Ordered: 04/07/2017 documented as of this encounter Visit Diagnoses Diagnosis Throat mass Swelling, mass, or lump in head and neck documented in this encounter Care Teams Public Employment Mediator Relationship Specialty Start Date End Date Jovon Sifuentes MD [address] [place] [address] PCP - General 09/30/10 09/10/21 documented as of this encounter
--- OUTSIDE RECORDS SUMMARY | 2024-08-28 12:57 | XMS_ITS | Encounter Summary ---
Author Organization [facility] [place] [address] Care Team Providers Care [place] Supervisor Name Role Phone Jovon Sifuentes MD Primary Care Provider [phone] Reason for Visit * Auth/Cert Specialty Diagnoses [...] Expiration Date Visits Re quested Visits Authorized [id number] 1 1 Encounter Details Date Type Department Care Team (Late st Contact Info) Description 07/13/2017 7:30 AM EDT - 07/13/2017 3:58 PM EDT [facility] [place] [phone] Sriram Contreras MD [facility] [place] [address] PHARYNGECTOMY, LIMITED (WRVU 19.13) Social History Tobacco [...] staging exam TECHNIQUE: Following IV injection of 54-lknsvc-7-deoxyglucose (FDG) a standard uptake of approximately 60 [...] Thank you for referring this patient to [facility]. I have personally reviewed [...] -You can reach the ENT clinic at [phone] for appointment questions. -The ENT triage nurse is available at [phone] -For urgent issues during evenings and weekends the ENT resident chimney construction supervisor can be reached through [facility] copy lathe operator at [phone] Follow Up: You will need to follow [...] Geovanna Deleon MD Hematology and Oncology at [place] [phone] General Instructions None __ Primary Care Doctor: Jovon Sifuentes MD [phone] Signed: Celso Mejía MD 07/29/2017 documented in [...] -You can reach the ENT clinic at [phone] for appointment questions. -The ENT triage nurse is available at [phone] -For urgent issues during evenings and weekends the ENT resident chimney construction supervisor can be reached through [facility] copy lathe operator at [phone] Follow Up: You will need to follow [...] Geovanna Deleon MD Hematology and Oncology at [place] [phone] documented in this encounter Medications at Time [...] att. providers found Jose Bee discharged to [facility] by private car with Spouse. All belongings sent with patient. DONNA removed, incision healing well, no significant drainage, no dehiscence, no significant erythema, skin free from pressure ulcers. Discharge instructions given to . Report called to Vidhi at [facility] @ 1340. * Alexus Soler RN - 07/29/2017 11:38 AM EDT Patient accepts bed at [facility]. Spoke with Patient and in regards to transportation. will provide transportation to [facility]. Adrienne Soler RN Care Management * Lexy Scott - 07/29/2017 10:57 AM EDT Office of Care Management/Telephone Worker Patient Name: Jose Bee : 1950 Patient has been offered a Long-Term Facility bed at [facility]. The patient will be transported by private transportation. No MD to MD report necessary Please call Nursing Report to , ask for Vidhi. Info to accompany patient: Narcotic Prescriptions Copies of Medication Administration Records and IV sheets for past 10 days. Plan: Telephone Worker will be available to the patient and Wire Spinner-RN and/or Social Workerfor further assistance. Patient will be discharged to: [facility] [address] [place] [address] Lexy M Snow, Telephone Worker * Luana Henry RN - 07/29/2017 7:00 AM EDT Patient arrived via bed to rm 514, oob sitting in chair. Aox4, calling . Denies pain. Plan for discharge today pending bed. 1 assist to bathroom. Voids with out difficulty. [place] to floor and call srinivasan system. Would like to take a shower and have his CPAP cleaned. Will report to oncoming RN/CONCEPCION. * Kayley Chris RCP - 07/29/2017 4:40 AM EDT Patient was compliant with home CPAP usage tonight. * Anay Diallo RN - 07/28/2017 3:40 PM EDT Wire Spinner Follow Up Note Patient plan of care discussed in multidisciplinary rounds. Met with patient and to assess continuing care and discharge needs. Continues to require hospitalization for Head and neck cancer. Discharge plan to snf when medically ready. Wire Spinner to follow with team and family to [...] Mejía MD, PGY1 07/28/17 7:05 AM Pager: [phone] * Anay Diallo RN - 07/27/2017 2:44 PM EDT Based on discussions with the multi-disciplinary healthcare team, the patient would benefit from skilled level of care at discharge. ?? I have met with the patient/strategic partnership representative to discuss discharge planning needs. I have provided the [facility], Office of Care Management letter from the Access Nurse pertaining to rehab referrals. I have also provided a letter describing our affiliations within the [facility] and educated them about their right [...] partnership representative have requested referrals to: 1. [facility] ?? PHONE: [phone] FAX: [phone].. 2. [facility] [address] [place] [address] ?? 3. [facility] ([facility]) [address] [place] [address] ? Expected date of discharge: TBD Note routed to Telephone Worker who will communicate referrals to facilities and [...] Mejía MD, PGY1 07/27/17 7:01 AM Pager: [phone] * Collette Schultz - 07/26/2017 8:21 PM EDT Zach Encounter Note Patient Name: Jose Bee : [id number] MR#: [id number] Admit Date: 07/13/2017 6:04 AM Hospital Day 13 days Narrative: Attempted return visit - pt sleeping. Time in Direct Care: 0 min. Collette Schultz 07/26/2017 * Collette Schultz - 07/26/2017 3:00 PM EDT Zach Encounter Note Patient Name: Jose Bee : [id number] MR#: [id number] Admit Date: 07/13/2017 6:04 AM Hospital Day 13 days Narrative: Nickel Plant Operator visit per Consult Order Assessment: Pt spoke [...] Diallo RN - 07/26/2017 2:30 PM EDT Wire Spinner Follow Up Note Patient plan of care discussed in multidisciplinary rounds. Met with patient to assess continuing care and discharge needs. Continues to require hospitalization for Head and neck cancer. Discharge plan uncertain at this time. Wire Spinner to follow with team and family to assist with discharge needs when patient ready for discharge. Anay Diallo RN Case Management for [facility] pgr [phone] * Briana Goel RN - 07/26/2017 2:29 PM EDT [facility] Interventional Radiology ? Interventional Radiology [...] patient's provider, ENT Service Dr. Jackie Mejía #[id number] , regarding above. Paged, callback # provided [...] lb 2.5 oz). Admit Wt: 133.36 kg [place] body weight: 90.4 kg Type of access: [...] vitamins and minerals. Assessment: Estimated Nutrition Needs: 7907-0728 calories (20-25 kcal/kg IBW) 135-160 grams protein (1.5-2.0 g/kg IBW) Patient is out of the ICU and out on the floor. Tube feedings need adjustment as pt is no longer onpropofol. Appears tube feedings are still medically indicated given pt is s/p swallow eval and INTERMISSION COORDINATOR recommends continuation of dobhoff TF for now. [...] Mejía MD, PGY1 07/26/17 9:01 AM Pager: [phone] * Calista Peralta RT - 07/26/2017 12:27 [...] 7.44 7.41 7.42 PO2ART 67* 60* 78* FOR0MHH 39 37 39 BEART 1.2 -2.0 0.3 [...] 7.44 7.41 7.42 PO2ART 67* 60* 78* [id number] 39 37 39 BEART 1.2 -2.0 0.3 [...] MD, FAAP Pediatric Otolaryngology [facility] * Beena Saini RCP - 07/24/2017 4:28 [...] 07/23/2017 3:50 PM EDT Office of Care Management(OCM)/Wire Spinner(CM) Service: ENT Pt remains intubated at this [...] get appropriate choices after recs are made. Wire Spinner Roc Valdez RN, BSN Pager #[phone] * Sony Oliva MD - 07/23/2017 11:31 [...] 07/23/2017 No results found for: PHART, PO2ART, VLR0PYQ ASSESSMENT, MANAGEMENT, and DECISION MAKING: potential for [...] LEAST ONE OF THESE DX to USE 22877 ARDS Stupor Hypoxemic Resp Failure (Fi02>50%) Delirium [...] Care Medicine Staff Inpatient Progress Note Author: oSny Oliva MD Patient seen and examined on [...] LEAST ONE OF THESE DX to USE 14777 ARDS Stupor Hypoxemic Resp Failure (Fi02>50%) Delirium [...] to reach the patient's provider, Red 1 5264, regarding above. Monitor weight. Jose Bee is a 66 y.o. male Principal Problem: Head and neck cancer Active Problems: Pulmonary embolism Overview: Recurrent. Atrial fibrillation Overview: March 2017: noted in ED in [facility]. Previously noted to be paroxysmal. No [...] LEAST ONE OF THESE DX to USE 68656 ARDS Stupor Hypoxemic Resp Failure (Fi02>50%) Delirium [...] PGY2 07/20/17 7:21 AM * Kaiden Gorman, [facility] - 07/20/2017 4:35 AM EDT AMV [...] LEAST ONE OF THESE DX to USE 91493 ARDS Stupor Hypoxemic Resp Failure (Fi02>50%) Delirium [...] plan. Lakeshia Mckeon MD * Jeannie Jewell, [facility] - 07/17/2017 7:24 PM EDT 07/17/17 [...] Jr, MD, PGY2 07/17/17 8:21 PM Pager: [phone] (For daytime 6AM - 6PM) Please contact on-call night ENT corporate development intern for issues between 6PM - 6AM [...] the need arise fora surgical airway. - [facility] vent protocol - HOB 30 degrees ?? [...] kg (294 lb). Admit Weight: 133.36 kg [place] Body Weight: 90.3 kg I/O last 1 [...] service. Nutrition to follow. * Lillian Pardo, INTERMISSION COORDINATOR - 07/16/2017 1:48 PM EDT Speech-Language Pathology Initial Consult ?? Order received and acknowledged. Records reviewed and pt and RN contacted. Pt remains intubated at this time. Assessment deferred at this time. Please re- consult after pt successfully extubated. ?? Lillian Pardo MA CCC-INTERMISSION COORDINATOR Inpatient Rehabilitation Medicine pager:# [phone] * Salazar Bhagat MD - 07/16/2017 11:57 [...] need arise for a surgical airway. - [facility] vent protocol - HOB 30 degrees ?? [...] Martino MD, PGY1 07/16/17 9:12 AM Pager: [phone] (For daytime 6AM - 6PM) Please contact on-call night ENT corporate development intern for issues between 6PM - 6AM * Supa Sharif, MARKETING REPRESENTATIVE - 07/15/2017 8:15 PM EDT AMV Protocol: [...] need arise for a surgical airway. - [facility] vent protocol - Dexamethasone x3 doses - [...] Martino MD, PGY1 07/15/17 7:06 AM Pager: [phone] (For daytime 6AM - 6PM) Please contact on-call night ENT corporate development intern for issues between 6PM - 6AM * Supa Sharif, [facility] - 07/14/2017 9:40 PM EDT AMV [...] ?? Pulm: nasally intubated, difficult airway - [facility] vent protocol - Dexamethasone x3 doses for [...] MD 07/14/2017 6:47 PM * Adam Montana, [facility] - 07/14/2017 2:03 PM EDT AMV [...] Martino MD, PGY1 07/14/17 9:38 AM Pager: [phone] (For daytime 6AM - 6PM) Please contact on-call night ENT corporate development intern for issues between 6PM - 6AM [...] of this encounter: 133.4 kg (294 lb). [place] Body Weight: 90.3 kg I/O last 1 [...] secured via suture. Of note, the pilot plant technician balloon line is wrapped up in the [...] c/d/i from midline to right mastoid. 2 JOYTHI drains anterior at back of neck with [...] Date ??? ACHILLES TENDON SURGERY Right 1996 [facility] ??? KNEE ARTHROSCOPY [facility]. [facility] ??? PRO BIOPSY OROPHARYNX N/A 05/24/2017 BIOPSY, OROPHARYNX (WRVU 1.44) performed by Zafar Madera MD at [facility] MAIN OR ??? PRO LARYNGOSCOPY, DIRCT, OP SCOPE, BIOPSY N/A 05/24/2017 LARYNGOSCOPY, MICROSCOPE, WITH BIOPSY (WRVU 3.55) performed by Zafar Madera MD at [facility] MAIN OR ??? QUADRACEPS TENDON REPAIR Right [...] education: 17 Occupational History ??? 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 He is to Briana for 40 yrs. 4 children - All live in different states - [place] Enjoys raising Beef Cattle and doing Civil War and Living History and shoot Black powder/Antique firearms. He enjoys builiding Firearms/Blacksmithing - [place]coal, [place], etc. Review of Systems: Not obtained due [...] - currently stable Pulm: nasally intubated - [facility] vent protocol GI: DHT - Diet: NPO [...] this case performed under IRB Protocol Study [id number] (Improving throat cancer surgical outcomes through intra-operative [...] to the planned procedure. Hand Hygiene: The geology associate did perform hand hygiene prior to arterial [...] * Plan of Care - Sriram Thompson INTERMISSION COORDINATOR - 07/29/2017 9:56 AM EDT Problem: Patient [...] RECOMMENDATIONS: ?? Continue dysphagia soft diet and [place]-thick liquids. ?? Upright to feed. ?? Small bites/sips. ?? Medications crushed in applesauce. Sriram Thompson MS [facility]-INTERMISSION COORDINATOR Speech-Language Pathologist Rehabilitation Medicine Pager - [phone] Problem: Acute Rehab Services Goal & Intervention [...] Anticipated Discharge Disposition: inpatient rehabilitation facility Pager: [phone] OTONIEL JOSHUA OT 07/28/2017 Occupational Therapy Rehabilitation [...] * Plan of Care - Sriram Thompson, INTERMISSION COORDINATOR - 07/28/2017 2:18 PM EDT Problem: Patient [...] documentation. RECOMMENDATIONS: ?? Dysphagia soft diet and [place]-thick liquids. ?? Upright to feed. ?? Small bites / sips. ?? Crush medications in applesauce when possible. Sriram Thompson MS [facility]-INTERMISSION COORDINATOR Speech-Language Pathologist Rehabilitation Medicine Pager - [phone] Problem: Acute Rehab Services Goal & Intervention [...] PO intake. Awaiting plan for D/C to shelter facility. INDIVIDUALIZED FALL PREVENTION INTERVENTIONS: Patient-specific fall [...] Anticipated Discharge Disposition: inpatient rehabilitation facility Pager: [phone] CRISTIAN NELSON, PT 07/27/2017 Physical Therapy Rehabilitation [...] sit/sit to supine -- Bed Mobility Goal, [place] Level independent -- Bed Mobility Goal, Outcome Achieved -- goal ongoing Goal: Gait Training Goal Stand Alone Therapy Goal Outcome: Ongoing (Interventions Implemented as Appropriate) 07/26/17 1329 07/27/17 1230 Gait Training Goal Gait Training Goal, Date Established 07/26/17 -- Gait Training Goal, Time to Achieve 30 days -- Gait Training Goal, [place] Level supervision required -- Gait Training Goal, [...] days -- Transfer Training Goal, Activity Type lwu-ze-eooxl/ukryp-gx-xty;afc-qw-bzykt/vmurl-wj-kiy -- Transfer Train Goal, [place] Level supervision required -- Transfer Training Goal, Assist Device walker, rolling -- Transfer Training Goal, Outcome -- goal ongoing * Plan of Care - Sriram Thompson, INTERMISSION COORDINATOR - 07/27/2017 10:59 AM EDT Problem: Patient [...] Crush medications in applesauce. Sriram Thompson MS [facility]-INTERMISSION COORDINATOR Speech-Language Pathologist Rehabilitation Medicine Pager - [phone] Problem: Acute Rehab Services Goal & Intervention [...] PLAN MOVING FORWARD: -PEG tube. -IV abx -INTERMISSION COORDINATOR consult. -hep gtt. INDIVIDUALIZED FALL PREVENTION INTERVENTIONS: [...] Pt appeared anxious and frustrated this morning. Nickel Plant Operator consulted and talked with patient today. During a transfer to the [facility] it was determinedthat tube feeding was leaking [...] Anticipated Discharge Disposition: inpatient rehabilitation facility Pager: [phone] OTONIEL JOSHUA OT 07/26/2017 Occupational Therapy Rehabilitation [...] Anticipated Discharge Disposition: inpatient rehabilitation facility Pager: [phone] CRISTIAN NELSON, PT 07/26/2017 Physical Therapy Rehabilitation [...] to sit/sit to supine Bed Mobility Goal, [place] Level independent Goal: Gait Training Goal Stand Alone Therapy Goal Outcome: Ongoing (Interventions Implemented as Appropriate) 07/26/17 1329 Gait Training Goal Gait Training Goal, Date Established 07/26/17 Gait Training Goal, Time to Achieve 30 days Gait Training Goal, [place] Level supervision required Gait Training Goal, Assist [...] 30 days Transfer Training Goal, Activity Type dhf-sd-gcfia/dyuih-qs-qvt;des-jf-twnaj/efcqm-uq-kqb Transfer Train Goal, [place] Level supervision required Transfer Training Goal, Assist [...] Afib (CHADS-VASc of 1) who presented to [facility] for radical neck dissection on 07/13/17. [...] Date ??? ACHILLES TENDON SURGERY Right 1996 [facility] ??? KNEE ARTHROSCOPY [facility]. [facility] ??? PRO BIOPSY OROPHARYNX N/A 05/24/2017 BIOPSY, OROPHARYNX (WRVU 1.44) performed by Zafar Madera MD at [facility] OR ??? PRO LARYNGOSCOPY, DIRCT, OP SCOPE, BIOPSY N/A 05/24/2017 LARYNGOSCOPY, MICROSCOPE, WITH BIOPSY (WRVU 3.55) performed by Zafar Madera MD at [facility] OR ??? PRO LARYNGOSCOPY, DIRECT, DX, OP MICROSCOP N/A 07/16/2017 LARYNGOSCOPY, WITH MICROSCOPE (WRVU 2.57) performed by Sriram Contreras MD at [facility] OR ??? PRO PART EXC TONGUE, UNILAT RAD NECK Right 07/13/2017 @GLOSSECTOMY, PARTIAL,WITH UNILATERAL RADICAL NECK DISSECTION (WRVU 30.14) performed by Sriram Contreras MD at [facility] ??? PRO PARTIAL REMOVAL OF PHARYNX N/A 07/13/2017 PHARYNGECTOMY, LIMITED (WRVU 19.13) performed by Sriram Contreras MD at [facility] ??? PRO UNLISTED PROCEDURE LARYNX N/A 07/13/2017 LARYNGOSCOPY, MICRO, LASER EXCISION (WRVU 12.14) performed by Sriram Contreras MD at [facility] ??? QUADRACEPS TENDON REPAIR Right 04/2016 [facility] ??? TONSILLECTOMY FAMILY HISTORY No family history on file. No family history of VTE SOCIAL HISTORY Social History Social History ??? Marital status: Spouse name: Briana ??? Number of children: 4 ??? 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 He is to Briana for 40 yrs. 4 children - All live in different states - One Kathleen Enjoys raising Beef Cattle and doing Civil War and Living History and shoot Black powder/Antique firearms. He enjoys builiding Firearms/Blacksmithing - [place]coal, [place], etc. PHYSICAL EXAMINATION Most Recent Vitals: 07/26/17 [...] and thrombosis clinic Felice Harvey MD Pager [phone] Heme-Onc Fellow ?? HEMATOLOGY STAFF ADDENDUM I [...] Deanna Menjivar MD Hematology Staff physician, Pager: [phone] 07/26/17 * Plan of Care - Sriram Thompson, INTERMISSION COORDINATOR - 07/26/2017 9:33 AM EDT Problem: Patient [...] degrees at all times. Sriram Thompson MS [facility]-INTERMISSION COORDINATOR Speech-Language Pathologist Rehabilitation Medicine Pager - [phone] Problem: Acute Rehab Services Goal & Intervention [...] 0 Mental Status 15 Score 50 OTHER [place] Fall Risk High Goal: Infection Control Outcome: [...] Bee was transferred from the ICU to [facility] at approximately 1430 on 07/25/17. At [...] per order. PLAN MOVING FORWARD: Transfer to [facility] INDIVIDUALIZED FALL PREVENTION INTERVENTIONS: Patient-specific [...] am. PLAN MOVING FORWARD: Extubate, transfer to [facility] when able INDIVIDUALIZED FALL PREVENTION [...] Outcome: Ongoing (Interventions Implemented as Appropriate) 07/15/17 7164 Skin Integrity Impairment, Risk/Actual Skin Integrity Impairment, [...] MOVING FORWARD: Extubate this am, transfer to [facility] when able INDIVIDUALIZED FALL PREVENTION [...] OUTCOME EVALUATION: * Plan of Care - [place], Suzie A, RN - 07/18/2017 7:03 PM [...] RN or CONCEPCION Surveillance [continuous indirect monitoring]: [place] ICU monitor Patient-specific fall prevention interventions for [...] Contreras MD - 07/16/2017 12:27 PM EDT [facility] Operative Note Patient Name: Jose Bee : [id number] MR#: [id number] Case Date: 07/16/2017 Surgeon: Surgeon(s) and Role: [...] monitoring required during toileting and ADLs]: RN, CONSERVATION SCIENCE OFFICER and RT Surveillance [continuous indirect monitoring]: Monitor [...] Contreras MD - 07/15/2017 4:58 PM EDT [facility] Operative Note Patient Name: Jose Bee : [id number] MR#: [id number] Case Date: 07/13/2017 Surgeon: Surgeon(s) and Role: * Sriram Contreras MD - Primary * Selvin Kaye MD - Resident-Owner * Hilton Cheney PA - Physician Die Casting Machine Maintainer Preoperative diagnosis: Right tongue base cancer Postoperative [...] completed, we then registered the patient using [employer] electromagnetic registration to the intraoperative imaging that [...] Vicryl suture. Once this was completed, two 15-Ukrainian Robin drains were placed in the neck, [...] Bee would be surrogate decision maker per [place] surrogate decision making law. Any patient receiving care at [facility] must abide by [place] law. The hierarchy for surrogate decision making [...] (i) The agent with financial power of seed district sales manager or a conservator appointed in accordance with [...] Insurance: MEDICARE A & B Secondary Insurance: edo [facility] Prescription Coverage: yes. Preferred Pharmacy: [facility] in [place], [place]. Other: none. Primary Care Provider: Jovon Sifuentes MD [phone] Patient/Caregiver Goals of Treatment: plan being determined at this time. Likely home health at [facility]. Potential Needs for Transition of Care: Rehab/SNF: tbd. Home Health: tbd. DME: none previously required. Dialysis: N/A Community Resources: none. Transportation: spouse will provide. Other: none. Anticipated Barriers to Discharge/Special Considerations: no barriers identified at this time. Plan: a member of the Care Management team will continue to monitor progress, follow for continuityof care and assist with transition of care planning. Wire Spinner Roc Valdez RN, BSN Pager #[phone] documented in this encounter Plan of Treatment Upcoming Encounters Date Type Department Care Team (Late st Contact Info) Description 09/18/2024 10:20 AM EST Office Visit [place] [address] Sriram Contreras MD [facility] [place] [place] [address] 10/31/2024 1:30 PM EST Office Visit Hematology/Oncology at [address] [phone] Dmitry Bhatti MD [facility] [place] [address] Ellen Mcrae APRN [facility] [place] [address] 10/31/2024 2:00 PM EST Infusion Hematology Oncology at [address] [phone] documented as of this encounter Procedures Procedure Name Priority Date/Time Associated Diagnosis Comments WATCHGUARD SCAN 07/30/2017 12:00 AM EDT HEMOGRAM Routine [...] Routine 07/17/2017 10:34 AM EDT CARDIAC ENZYMES ([facility]/CGP) STAT 07/17/2017 5:42 AM EDT HEMOGRAM Routine 07/17/2017 12:30 AM EDT DIFFERENTIAL, AUTOMATED Routine 07/17/2017 12:30 AM EDT CARDIAC ENZYMES ([facility]) STAT 07/17/2017 12:30 AM EDT CBC (WITH DIFF) Routine 07/17/2017 12:30 AM EDT BASIC METABOLIC PANEL Routine 07/17/2017 12:30 AM EDT ENDOTRACHEAL TUBE POSITION CHANGE STAT 07/16/2017 5:51 PM EDT XR CHEST ONE VIEW STAT 07/16/2017 5:2 4 PM EDT CARDIAC ENZYMES ([facility]) STAT 07/16/2017 5:10 PM EDT EKG 12-LEAD [...] EDT TYPE AND SCREEN, SDP (FUTURE SURGERY, [facility] SAME DAY PROGRAM ONLY) STAT 07/13/2017 6:27 AM EDT ABO/RH TYPING STAT 07/13/2017 6:27 AM EDT ANTIBODY SCREEN STAT 07/13/2017 6:27 AM EDT documented in this encounter Results * SCAN DOC: WATCHGUARD (07/30/2017 12:00 AM EDT) Anatomical Region Laterality Modality Other Narrative 07/30/2017 12:00 AM EDT Ordered by an unspecified provider. Scanning Provider MEDIA MGR SCAN EXT O RDR/RSLT * (ABNORMAL) Differential, Automated (07/29/2017 3:41 AM EDT) Neutrophil % 59.9 % [facility] Neutrophil Absolute 4.48 1.70 - 6.10 x10(3)/mc L [facility] Lymph % 26.0 % [facility] [facility] Lymphocytes Abs 2.0 0.9 - 3.2 x10(3)/mc L [facility] Monocyte % 10.0 % [facility] Monocyte Abs 0.8 0.3 - 0.9 x10(3)/[facility] LABORATORY Eos % 2.1 % [facility] Eosinophils Abs 0.2 0.0 - 0.4 x10(3)/[facility]ORY Basophil % 0.7 % [facility] Baso Absolute 0.0 0.0 - 0.1 x10(3)/[facility] LABORATORY Immature Gran % 1.30 % [facility] Comment: Immature granulocytes(IG's)percentage and absolute count will include metamyelocytes, myelocytes, and promyelocytes. Blood smears from CBCs yielding IG's will be scanned manually for concordance. If this scan disagrees with the automated IG or if promyelocytes are noted, a manual differential will be performed. Immature Gran Absolute 0.10(H) 0.00 - 0.04 x10(3)/[facility] LABORATORY Blood specimen (specimen) 07/29/2017 3:41 AM EDT 07/29/2017 3:58 AM EDT Narrative Resulting Agency Comment Spec In Lab Sriram Contreras MD HEMATOLOGY ORDERAB LES [facility] [place] [address] * (ABNORMAL) Hemogram (07/29/2017 3:41 AM EDT) White Blood Cell 7.5 4.0 - 9.5 x10(3)/[facility] LABORATORY Red Blood Cell 4.14(L) 4.58 - 5.54 x10(6)/[facility]ATORY Hemoglobin 12.7(L) 13.7 - 16.5 gm/dL [facility] Hematocrit 38.1(L) 40.5 - 48.5 % [facility] Mean Cell Volume 92.0 82.9 - 93.1 fL [facility] Mean Cell Hemoglobin 30.7 27.5 - 32.1 pg [facility] Mean Cell Hemoglobin Concentration 33.3 32.0 - 35.7 gm/dL [facility] Platelet 281 145 - 357 x10(3)/mc L [facility] RDW Standard Deviation 46.4(H) 36.0 - 45.0 fL [facility] RDW coefficient of variation 13.9(H) 11.4 - 13.8 % [facility] Mean Platelet Volume 9.9 7.6 - 12.9 fL [facility] NRBC% auto 0.0 % [facility] NRBC Absolute 0.000 0.000 - 0.000 x10(3)/mc L [facility] Blood specimen (specimen) 07/29/2017 3:41 AM EDT 07/29/2017 3:58 AM EDT Narrative Resulting Agency Comment Spec In Lab Sriram Contreras MD HEMATOLOGY ORDERAB LES [facility] [place] [id number] * Basic Metabolic Panel (non-fasting) (07/29/2017 3:41 AM EDT) Glucose 95 65 - 199 mg/dL [facility] Comment:Diabetes: >=200 mg/d L plus symptoms Blood Urea Nitrogen 16 10 - 20 mg/dL [facility] Creatinine 0.95 0.80 - 1.50 mg/dL [facility] Comment: Please note that the pediatric reference intervals supplied above were not validated at [facility]. Results from pediatric patients should be interpreted in conjunction to the patient's age, height and muscle mass. Sodium 139 135 - 145 mmol/L [facility] Potassium 3.9 3.5 - 5.0 mmol/L [facility] Comment: Please note: ??Patients with WBC >100,000 may have falsely elevated Potassium levels. ??For accurate Potassium quantification in these patients send serum separator tube (gold top) for subsequent determinations. ??Contact the Clinical Chemistry Laboratory if there are any questions. Chloride 102 98 - 107 mmol/L [facility] Carbon Dioxide 24 22 - 31 mmol/L [facility] Anion Gap 13 5 - 15 mmol/L [facility] Calcium 8.9 8.5 - 10.5 mg/dL [facility] Est Glomerular Filtration Rate >60 >=60 [facility] Comment: This estimated GFR [...] the following links into your internet browser. [email or web address] Blood specimen (specimen) 07/29/2017 3:41 AM EDT 07/29/2017 3:58 AM EDT Narrative Resulting Agency Comment Spec In Lab Sriram Contreras MD CHEMISTRY ORDERABL ES Performing Organization Address [facility] Co de Phone Number [facility] [place] [address] * POCT Glucose (07/28/2017 11:53 AM EDT) Glucose, POC 107 65 - 199 mg/dL [facility] Comment: Supplemental ranges: <140 mg/dL before meals <180 mg/dL all other times of the day Blood specimen (specimen) 07/28/2017 11:53 AM EDT 07/28/2017 11:53 AM EDT Sriram Contreras MD POINT OF CARE TEST ORDERABLES Performing Organization Address City/[facility] Co de Phone Number [facility] [place] [address] * POCT Glucose (07/28/2017 7:52 AM EDT) Glucose, POC 97 65 - 199 mg/dL [facility] Comment: Supplemental ranges: <140 mg/dL before meals <180 mg/dL all other times of the day Blood specimen (specimen) 07/28/2017 7:52 AM EDT 07/28/2017 7:52 AM EDT Sriram Contreras MD POINT OF CARE TEST ORDERABLES Performing Organization Address [facility] Co de Phone Number [facility] [place] [address] * POCT Glucose (07/28/2017 4:27 AM EDT) Glucose, POC 98 65 - 199 mg/dL [facility] Comment: Supplemental ranges: <140 mg/dL before meals <180 mg/dL all other times of the day Blood specimen (specimen) 07/28/2017 4:27 AM EDT 07/28/2017 4:27 AM EDT Sriram Contreras MD POINT OF CARE TEST ORDERABLES Performing Organization Address [facility] de Phone Number [facility] [place] [address] * Phosphorus (07/28/2017 3:47 AM EDT) Phosphorus 3.7 2.5 - 4.5 mg/dL [facility] Blood specimen (specimen) 07/28/2017 3:47 AM EDT 07/28/2017 6:16 AM EDT Narrative Resulting Agency Comment Spec In Lab Sriram Contreras MD CHEMISTRY ORDERABL ES Performing Organization Address [facility] de Phone Number [facility] [place] [address] * Magnesium (07/28/2017 3:47 AM EDT) Magnesium 0.86 0.69 - 1.07 mmol/L [facility] Blood specimen (specimen) 07/28/2017 3:47 AM EDT 07/28/2017 6:16 AM EDT Narrative Resulting Agency Comment Spec In Lab Sriram Contreras MD CHEMISTRY ORDERABL ES [facility] [place] [address] * (ABNORMAL) Differential, Automated (07/28/2017 3:47 AM EDT) Neutrophil % 62.2 % [facility] Neutrophil Absolute 4.94 1.70 - 6.10 x10(3)/mc L [facility] Lymph % 22.1 % [facility] Lymphocytes Abs 1.8 0.9 - 3.2 x10(3)/mc L [facility] Monocyte % 10.6 % [facility] Monocyte Abs 0.8 0.3 - 0.9 x10(3)/mc L [facility] Eos % 2.1 % [facility] Eosinophils Abs 0.2 0.0 - 0.4 x10(3)/mc L [facility] Basophil % 1.1 % [facility] Baso Absolute 0.1 0.0 - 0.1 x10(3)/mc L [facility] Immature Gran % 1.90 % [facility] Comment: Immature granulocytes(IG's)percentage and absolute count will include metamyelocytes, myelocytes, and promyelocytes. Blood smears from CBCs yielding IG's will be scanned manually for concordance. If this scan disagrees with the automated IG or if promyelocytes are noted, a manual differential will be performed. Immature Gran Absolute 0.15(H) 0.00 - 0.04 x10(3)/mc L [facility] Blood specimen (specimen) 07/28/2017 3:47 AM EDT 07/28/2017 3:58 AM EDT Narrative Resulting Agency Comment Spec In Lab Sriram Contreras MD HEMATOLOGY ORDERAB LES [facility] [place] [address] * (ABNORMAL) Hemogram (07/28/2017 3:47 AM EDT) White Blood Cell 8.0 4.0 - 9.5 x10(3)/mc L [facility] Red Blood Cell 4.43(L) 4.58 - 5.54 x10(6)/mc L [facility] Hemoglobin 13.4(L) 13.7 - 16.5 gm/dL [facility] Hematocrit 40.3(L) 40.5 - 48.5 % [facility] Mean Cell Volume 91.0 82.9 - 93.1 fL [facility] Mean Cell Hemoglobin 30.2 27.5 - 32.1 pg [facility] Mean Cell Hemoglobin Concentration 33.3 32.0 - 35.7 gm/dL [facility] Platelet 271 145 - 357 x10(3)/mc L [facility] RDW Standard Deviation 45.5(H) 36.0 - 45.0 fL [facility] RDW coefficient of variation 13.8 11.4 - 13.8 % [facility] Mean Platelet Volume 9.9 7.6 - 12.9 fL [facility] NRBC% auto 0.0 % [facility] NRBC Absolute 0.000 0.000 - 0.000 x10(3)/mc L [facility] Blood specimen (specimen) 07/28/2017 3:47 AM EDT 07/28/2017 3:58 AM EDT Narrative Resulting Agency Comment Spec In Lab Sriram Contreras MD HEMATOLOGY ORDERAB LES [facility] [place] [address] * Basic Metabolic Panel (non-fasting) (07/28/2017 3:47 AM EDT) Glucose 110 65 - 199 mg/dL [facility] Comment:Diabetes: >=200 mg/d L plus symptoms Blood Urea Nitrogen 19 10 - 20 mg/dL [facility] Creatinine 0.96 0.80 - 1.50 mg/dL [facility] Comment: Please note that the pediatric reference intervals supplied above were not validated at [facility]. Results from pediatric patients should be interpreted in conjunction to the patient's age, height and muscle mass. Sodium 140 135 - 145 mmol/L [facility] Potassium 3.6 3.5 - 5.0 mmol/L [facility] Comment: Please note: ??Patients with WBC >100,000 may have falsely elevated Potassium levels. ??For accurate Potassium quantification in these patients send serum separator tube (gold top) for subsequent determinations. ??Contact the Clinical Chemistry Laboratory if there are any questions. Chloride 101 98 - 107 mmol/L [facility] Carbon Dioxide 24 22 - 31 mmol/L [facility] Anion Gap 15 5 - 15 mmol/L [facility] Calcium 8.9 8.5 - 10.5 mg/dL [facility] Est Glomerular Filtration Rate >60 >=60 [facility] Comment: This estimated GFR [...] the following links into your internet browser. [email or web address] Blood specimen (specimen) 07/28/2017 3:47 AM EDT 07/28/2017 3:58 AM EDT Narrative Resulting Agency Comment Spec In Lab Sriram Contreras MD CHEMISTRY ORDERABL ES Performing Organization Address [facility] de Phone Number [facility] [place] [address] * POCT Glucose (07/27/2017 11:52 PM EDT) [facility] Glucose, POC 94 65 - 199 mg/dL [facility] Comment: Supplemental ranges: <140 mg/dL before meals <180 mg/dL all other times of the day Blood specimen (specimen) 07/27/2017 11:52 PM EDT 07/27/2017 11:52 PM EDT Sriram Contreras MD POINT OF CARE TEST ORDERABLES Performing Organization Address [facility] de Phone Number [facility] [place] [address] * Heparin, low molecular weight assay (07/27/2017 8:19 PM EDT) [facility] Heparin [id number] 0.67 IU/mL [facility] Comment: Guidelines for therapeutic [...] MD HEMATOLOGY ORDERAB LES Performing Organization Address [facility] de Phone Number [facility] [place] [address] * POCT Glucose (07/27/2017 7:35 PM EDT) Glucose, POC 118 65 - 199 mg/dL [facility] Comment: Supplemental ranges: <140 mg/dL before meals <180 mg/dL all other times of the day Blood specimen (specimen) 07/27/2017 7:35 PM EDT 07/27/2017 7:35 PM EDT Sriram Contreras MD POINT OF CARE TEST ORDERABLES Performing Organization Address [facility] de Phone Number [facility] [place] [address] * POCT Glucose (07/27/2017 3:28 PM EDT) Glucose, POC 104 65 - 199 mg/dL [facility] Comment: Supplemental ranges: <140 mg/dL before meals <180 mg/dL all other times of the day Blood specimen (specimen) 07/27/2017 3:28 PM EDT 07/27/2017 3:28 PM EDT Sriram Contreras MD POINT OF CARE TEST ORDERABLES Performing Organization Address City/[facility]/ZIP Co de Phone Number [facility] [place] [address] * POCT Glucose (07/27/2017 11:06 AM EDT) Glucose, POC 147 65 - 199 mg/dL [facility] Comment: Supplemental ranges: <140 mg/dL before meals <180 mg/dL all other times of the day Blood specimen (specimen) 07/27/2017 11:06 AM EDT 07/27/2017 11:06 AM EDT Sriram Contreras MD POINT OF CARE TEST ORDERABLES Performing Organization Address City/[facility]/ZIP Co de Phone Number [facility] [place] [address] * POCT Glucose (07/27/2017 7:25 AM EDT) Glucose, POC 105 65 - 199 mg/dL [facility] Comment: Supplemental ranges: <140 mg/dL before meals <180 mg/dL all other times of the day Blood specimen (specimen) 07/27/2017 7:25 AM EDT 07/27/2017 7:25 AM EDT Sriram Contreras MD POINT OF CARE TEST ORDERABLES Performing Organization Address City/[facility]/ZIP Co de Phone Number [facility] [place] [address] * Duplex Study for DVT, Bilat legs (07/27/2017 6:59 AM EDT) VB Text Report Department: Vascular Surgery Lab Patient: [id number] (EUSEBIAJOSE) CPT: 49765 ICD10: I26.99 Referring Physician: SRIRAM CONTRERAS ?? [...] MD VASCULAR ORDERABLE S Performing Organization Address [facility] Co de Phone Number [facility] * POCT Glucose (07/27/2017 3:52 AM EDT) Glucose, POC 106 65 - 199 mg/dL [facility] Comment: Supplemental ranges: <140 mg/dL before meals <180 mg/dL all other times of the day Blood specimen (specimen) 07/27/2017 3:52 AM EDT 07/27/2017 3:52 AM EDT Sriram Contreras MD POINT OF CARE TEST ORDERABLES Performing Organization Address [facility] Co de Phone Number [facility] [place] [address] * (ABNORMAL) APTT (07/27/2017 2:45 AM EDT) Partial Thromboplastin Time 92(H) 25 - 35 sec [facility] Comment: The recommended therapeutic range for full dose, unfractionated heparin at [facility] is 80 ? 114 seconds. The use of the anti-Xa (heparin) level rather than the PTT is recommended for monitoring anticoagulation intensity in critically ill patients receiving unfractionated heparin by continuous IV infusion. Blood specimen (specimen) 07/27/2017 2:45 AM EDT 07/27/2017 2:55 AM EDT Narrative Resulting Agency Comment Spec In Lab Sriram Contreras MD HEMATOLOGY ORDERAB LES [facility] [place] [address] * (ABNORMAL) Differential, Automated (07/27/2017 2:45 AM EDT) [facility] Neutrophil % 67.8 % [facility] Neutrophil Absolute 8.40(H) 1.70 - 6.10 x10(3)/mc L [facility] Lymph % 17.4 % [facility] Lymphocytes Abs 2.2 0.9 - 3.2 x10(3)/mc L [facility] Monocyte % 9.5 % [facility] Monocyte Abs 1.2(H) 0.3 - 0.9 x10(3)/mc L [facility] Eos % 1.4 % [facility] Eosinophils Abs 0.2 0.0 - 0.4 x10(3)/mc L [facility] Basophil % 0.9 % [facility] Baso Absolute 0.1 0.0 - 0.1 x10(3)/mc L [facility] Immature Gran % 3.00 % [facility] Comment: Immature granulocytes(IG's)percentage and absolute count will include metamyelocytes, myelocytes, and promyelocytes. Blood smears from CBCs yielding IG's will be scanned manually for concordance. If this scan disagrees with the automated IG or if promyelocytes are noted, a manual differential will be performed. Immature Gran Absolute 0.37(H) 0.00 - 0.04 x10(3)/[facility] LABORATORY Blood specimen (specimen) 07/27/2017 2:45 AM EDT 07/27/2017 2:55 AM EDT Narrative Resulting Agency Comment Spec In Lab Sriram Contreras MD HEMATOLOGY ORDERAB LES Performing Organization Address City/State/[facility] Co de Phone Number [facility] [place] [address] * (ABNORMAL) Hemogram (07/27/2017 2:45 AM EDT) White Blood Cell 12.4(H) 4.0 - 9.5 x10(3)/[facility]ORAT[facility] Red Blood Cell 4.66 4.58 - 5.54 x10(6)/[facility] Hemoglobin 14.3 13.7 - 16.5 gm/dL [facility] Hematocrit 42.0 40.5 - 48.5 % [facility] Mean Cell Volume 90.1 82.9 - 93.1 fL [facility] Mean Cell Hemoglobin 30.7 27.5 - 32.1 pg [facility] Mean Cell Hemoglobin Concentration 34.0 32.0 - 35.7 gm/dL [facility] Platelet 288 145 - 357 x10(3)/[facility]AT[facility] RDW Standard Deviation 45.5(H) 36.0 - 45.0 [facility] LAB[facility]ORY RDW coefficient of variation 14.0(H) 11.4 - 13.8 % [facility] Mean Platelet Volume 9.7 7.6 - 12.9 fL [facility] NRBC% auto 0.0 % [facility] NRBC Absolute 0.000 0.000 - 0.000 x10(3)/[facility] Blood specimen (specimen) 07/27/2017 2:45 AM EDT 07/27/2017 2:55 AM EDT Narrative Resulting Agency Comment Spec In Lab Sriram Contreras MD HEMATOLOGY ORDERAB LES [facility] [place] [address] * (ABNORMAL) Basic Metabolic Panel (non-fasting) (07/27/2017 2:45 AM EDT) Glucose 169 65 - 199 mg/dL [facility] Comment:Diabetes: >=200 mg/d L plus symptoms Blood Urea Nitrogen 22(H) 10 - 20 mg/dL [facility] Creatinine 0.92 0.80 - 1.50 mg/dL [facility] Comment: Please note that the pediatric reference intervals supplied above were not validated at [facility]. Results from pediatric patients should be interpreted in conjunction to the patient's age, height and muscle mass. Sodium 139 135 - 145 mmol/L [facility] Potassium 3.7 3.5 - 5.0 mmol/L [facility] Comment: Please note: ??Patients with WBC >100,000 may have falsely elevated Potassium levels. ??For accurate Potassium quantification in these patients send serum separator tube (gold top) for subsequent determinations. ??Contact the Clinical Chemistry Laboratory if there are any questions. Chloride 100 98 - 107 mmol/L [facility] Carbon Dioxide 23 22 - 31 mmol/L [facility] Anion Gap 16(H) 5 - 15 mmol/L [facility] Calcium 9.4 8.5 - 10.5 mg/dL [facility] Est Glomerular Filtration Rate >60 >=60 [facility] Comment: This estimated GFR [...] the following links into your internet browser. [email or web address] Blood specimen (specimen) 07/27/2017 2:45 AM EDT 07/27/2017 2:55 AM EDT Narrative Resulting Agency Comment Spec In Lab Sriram Contreras MD CHEMISTRY ORDERABL ES Performing Organization Address [facility] Co de Phone Number [facility] [place] [address] * Phosphorus (07/27/2017 2:45 AM EDT) Phosphorus 4.3 2.5 - 4.5 mg/dL [facility] Blood specimen (specimen) 07/27/2017 2:45 AM EDT 07/27/2017 2:55 AM EDT Narrative Resulting Agency Comment Spec In Lab Sriram Contreras MD CHEMISTRY ORDERABL ES Performing Organization Address [facility] Co de Phone Number [facility] [place] [address] * Magnesium (07/27/2017 2:45 AM EDT) Magnesium 0.79 0.69 - 1.07 mmol/L [facility] Blood specimen (specimen) 07/27/2017 2:45 AM EDT 07/27/2017 2:55 AM EDT Narrative Resulting Agency Comment Spec In Lab Sriram Contreras MD CHEMISTRY ORDERABL ES Performing Organization Address [facility] Co de Phone Number [facility] [place] [address] * POCT Glucose (07/27/2017 12:02 AM EDT) Glucose, POC 112 65 - 199 mg/dL [facility] Comment: Supplemental ranges: <140 mg/dL before meals <180 mg/dL all other times of the day Blood specimen (specimen) 07/27/2017 12:02 AM EDT 07/27/2017 12:02 AM EDT Sriram Contreras MD POINT OF CARE TEST ORDERABLES Performing Organization Address [facility] Co de Phone Number [facility] [place] [address] * (ABNORMAL) APTT (07/26/2017 9:29 PM EDT) Partial Thromboplastin Time 90(H) 25 - 35 sec [facility] Comment: The recommended therapeutic range for full dose, unfractionated heparin at [facility] is 80 ? 114 seconds. The use of the anti-Xa (heparin) level rather than the PTT is recommended for monitoring anticoagulation intensity in critically ill patients receiving unfractionated heparin by continuous IV infusion. Blood specimen (specimen) 07/26/2017 9:29 PM EDT 07/26/2017 9:32 PM EDT Narrative Resulting Agency Comment Spec In Lab Sriram Contreras MD HEMATOLOGY ORDERAB LES Performing Organization Address [facility] Co de Phone Number [facility] [place] [address] * POCT Glucose (07/26/2017 8:14 PM EDT) Glucose, POC 116 65 - 199 mg/dL [facility] Comment: Supplemental ranges: <140 mg/dL before meals <180 mg/dL all other times of the day Blood specimen (specimen) 07/26/2017 8:14 PM EDT 07/26/2017 8:14 PM EDT Sriram Contreras MD POINT OF CARE TEST ORDERABLES Performing Organization Address [facility] Co de Phone Number [facility] [place] [address] * POCT Glucose (07/26/2017 3:20 PM EDT) Glucose, POC 125 65 - 199 mg/dL [facility] Comment: Supplemental ranges: <140 mg/dL before meals <180 mg/dL all other times of the day Blood specimen (specimen) 07/26/2017 3:20 PM EDT 07/26/2017 3:20 PM EDT Sriram Contreras MD POINT OF CARE TEST ORDERABLES Performing Organization Address [facility] Co de Phone Number [facility] [place] [address] * (ABNORMAL) APTT (07/26/2017 1:51 PM EDT) Partial Thromboplastin Time 88(H) 25 - 35 sec [facility] Comment: The recommended therapeutic range for full dose, unfractionated heparin at [facility] is 80 ? 114 seconds. The use of the anti-Xa (heparin) level rather than the PTT is recommended for monitoring anticoagulation intensity in critically ill patients receiving unfractionated heparin by continuous IV infusion. Blood specimen (specimen) 07/26/2017 1:51 PM EDT 07/26/2017 1:55 PM EDT Narrative Resulting Agency Comment Spec In Lab Sriram Contreras MD HEMATOLOGY ORDERAB LES Performing Organization Address [facility] de Phone Number [facility] [place] [address] * POCT Glucose (07/26/2017 11:12 AM EDT) Glucose, POC 120 65 - 199 mg/dL [facility] Comment: Supplemental ranges: <140 mg/dL before meals <180 mg/dL all other times of the day Blood specimen (specimen) 07/26/2017 11:12 AM EDT 07/26/2017 11:12 AM EDT Sriram Contreras MD POINT OF CARE TEST ORDERABLES Performing Organization Address [facility] Co de Phone Number [facility] [place] [address] * POCT Glucose (07/26/2017 7:35 AM EDT) [facility] Glucose, POC 115 65 - 199 mg/dL [facility] Comment: Supplemental ranges: <140 mg/dL before meals <180 mg/dL all other times of the day Blood specimen (specimen) 07/26/2017 7:35 AM EDT 07/26/2017 7:35 AM EDT Sriram Contreras MD POINT OF CARE TEST ORDERABLES Performing Organization Address [facility] de Phone Number [facility] [place] [address] * (ABNORMAL) APTT (07/26/2017 3:30 AM EDT) [facility] Partial Thromboplastin Time 60(H) 25 - 35 sec [facility] Comment: The recommended therapeutic range for full dose, unfractionated heparin at [facility] is 80 ? 114 seconds. The use of the anti-Xa (heparin) level rather than the PTT is recommended for monitoring anticoagulation intensity in critically ill patients receiving unfractionated heparin by continuous IV infusion. Blood specimen (specimen) 07/26/2017 3:30 AM EDT 07/26/2017 4:11 AM EDT Narrative Resulting Agency Comment Spec In Lab Sriram Contreras MD HEMATOLOGY ORDERAB LES Performing Organization Address [facility] Co de Phone Number [facility] [place] [address] * (ABNORMAL) Differential, Automated (07/26/2017 3:30 AM EDT) [facility] Neutrophil % 68.7 % [facility] Neutrophil Absolute 8.50(H) 1.70 - 6.10 x10(3)/mc L [facility] Lymph % 14.3 % [facility] Lymphocytes Abs 1.8 0.9 - 3.2 x10(3)/mc L [facility] Monocyte % 9.6 % [facility] Monocyte Abs 1.2(H) 0.3 - 0.9 x10(3)/ L [facility] Eos % 1.3 % [facility] Eosinophils Abs 0.2 0.0 - 0.4 x10(3)/[facility] Basophil % 1.4 % [facility] Baso Absolute 0.2(H) 0.0 - 0.1 x10(3)/[facility] Immature Gran % 4.70 % [facility] Comment: Immature granulocytes(IG's)percentage and absolute count will include metamyelocytes, myelocytes, and promyelocytes. Blood smears from CBCs yielding IG's will be scanned manually for concordance. If this scan disagrees with the automated IG or if promyelocytes are noted, a manual differential will be performed. Immature Gran Absolute 0.58(H) 0.00 - 0.04 x10(3)/[facility] Blood specimen (specimen) 07/26/2017 3:30 AM EDT 07/26/2017 4:11 AM EDT Narrative Resulting Agency Comment Spec In Lab Sriram Contreras MD HEMATOLOGY ORDERAB LES [facility] [place] [address] * (ABNORMAL) Hemogram (07/26/2017 3:30 AM EDT) White Blood Cell 12.4(H) 4.0 - 9.5 x10(3)/[facility] Red Blood Cell 4.87 4.58 - 5.54 x10(6)/[facility] Hemoglobin 15.2 13.7 - 16.5 gm/dL [facility] Hematocrit 44.1 40.5 - 48.5 % [facility] Mean Cell Volume 90.6 82.9 - 93.1 fL [facility] Mean Cell Hemoglobin 31.2 27.5 - 32.1 pg [facility] Mean Cell Hemoglobin Concentration 34.5 32.0 - 35.7 gm/dL [facility] Platelet 253 145 - 357 x10(3)/mc L [facility] RDW Standard Deviation 44.8 36.0 - 45.0 fL [facility] RDW coefficient of variation 13.6 11.4 - 13.8 % [facility] Mean Platelet Volume 10.4 7.6 - 12.9 fL [facility] NRBC% auto 0.2 % [facility] NRBC Absolute 0.020(H) 0.000 - 0.000 x10(3)/mc L [facility] Blood specimen (specimen) 07/26/2017 3:30 AM EDT 07/26/2017 4:11 AM EDT Narrative Resulting Agency Comment Spec In Lab Sriram Contreras MD HEMATOLOGY ORDERAB LES [facility] [place] [address] * Basic Metabolic Panel (non-fasting) (07/26/2017 3:30 AM EDT) Glucose 123 65 - 199 mg/dL [facility] Comment:Diabetes: >=200 mg/d L plus symptoms Blood Urea Nitrogen 18 10 - 20 mg/dL [facility] Creatinine 0.85 0.80 - 1.50 mg/dL [facility] Comment: Please note that the pediatric reference intervals supplied above were not validated at [facility]. Results from pediatric patients should be interpreted in conjunction to the patient's age, height and muscle mass. Sodium 141 135 - 145 mmol/L [facility] Potassium 3.8 3.5 - 5.0 mmol/L [facility] Comment: Please note: ??Patients with WBC >100,000 may have falsely elevated Potassium levels. ??For accurate Potassium quantification in these patients send serum separator tube (gold top) for subsequent determinations. ??Contact the Clinical Chemistry Laboratory if there are any questions. Chloride 102 98 - 107 mmol/L [facility] Carbon Dioxide 25 22 - 31 mmol/L [facility] Anion Gap 14 5 - 15 mmol/L [facility] Calcium 9.2 8.5 - 10.5 mg/dL [facility] Est Glomerular Filtration Rate >60 >=60 [facility] Comment: This estimated GFR [...] the following links into your internet browser. [email or web address] Blood specimen (specimen) 07/26/2017 3:30 AM EDT 07/26/2017 4:11 AM EDT Narrative Resulting Agency Comment Spec In Lab Sriram Contreras MD CHEMISTRY ORDERABL ES Performing Organization Address [facility] Co de Phone Number [facility] [place] [address] * Prealbumin (07/26/2017 3:30 AM EDT) Prealbumin 26 20 - 40 mg/dL [facility] Comment: Prealbumin levels are generally lower in the pediatric population; adult concentrations are usually attained near puberty. Blood specimen (specimen) 07/26/2017 3:30 AM EDT 07/26/2017 4:11 AM EDT Narrative Resulting Agency Comment Spec In Lab Sriram Contreras MD CHEMISTRY ORDERABL ES Performing Organization Address City/[facility] Co de Phone Number [facility] [place] [address] * POCT Glucose (07/26/2017 3:27 AM EDT) Glucose, POC 116 65 - 199 mg/dL [facility] Comment: Supplemental ranges: <140 mg/dL before meals <180 mg/dL all other times of the day Blood specimen (specimen) 07/26/2017 3:27 AM EDT 07/26/2017 3:27 AM EDT Sriram Contreras MD POINT OF CARE TEST ORDERABLES Performing Organization Address [facility] Co de Phone Number [facility] [place] [address] * POCT Glucose (07/25/2017 7:50 PM EDT) Glucose, POC 109 65 - 199 mg/dL [facility] Comment: Supplemental ranges: <140 mg/dL before meals <180 mg/dL all other times of the day Blood specimen (specimen) 07/25/2017 7:50 PM EDT 07/25/2017 7:50 PM EDT Sriram Contreras MD POINT OF CARE TEST ORDERABLES Performing Organization Address [facility] de Phone Number [facility] [place] [address] * (ABNORMAL) APTT (07/25/2017 5:51 PM EDT) Partial Thromboplastin Time 112(H) 25 - 35 sec [facility] Comment: The recommended therapeutic range for full dose, unfractionated heparin at [facility] is 80 ? 114 seconds. The use of the anti-Xa (heparin) level rather than the PTT is recommended for monitoring anticoagulation intensity in critically ill patients receiving unfractionated heparin by continuous IV infusion. Blood specimen (specimen) 07/25/2017 5:51 PM EDT 07/25/2017 5:55 PM EDT Narrative Resulting Agency Comment Spec In Lab Sriram Contreras MD HEMATOLOGY ORDERAB LES Performing Organization Address [facility] Co de Phone Number [facility] [place] [address] * POCT Glucose (07/25/2017 4:01 PM EDT) Glucose, POC 109 65 - 199 mg/dL [facility] Comment: Supplemental ranges: <140 mg/dL before meals <180 mg/dL all other times of the day Blood specimen (specimen) 07/25/2017 4:01 PM EDT 07/25/2017 4:01 PM EDT Sriram Contreras MD POINT OF CARE TEST ORDERABLES Performing Organization Address [facility] Co de Phone Number [facility] [place] [address] * POCT Glucose (07/25/2017 12:10 PM EDT) Glucose, POC 117 65 - 199 mg/dL [facility] Comment: Supplemental ranges: <140 mg/dL before meals <180 mg/dL all other times of the day Blood specimen (specimen) 07/25/2017 12:10 PM EDT 07/25/2017 12:10 PM EDT Sriram Contreras MD POINT OF CARE TEST ORDERABLES Performing Organization Address [facility] Co de Phone Number [facility] [place] [address] * Potassium (07/25/2017 11:00 AM EDT) Potassium 3.9 3.5 - 5.0 mmol/L [facility] Comment: Please note: ??Patients [...] MD CHEMISTRY ORDERABL ES Performing Organization Address [facility] Co de Phone Number [facility] [place] [address] * (ABNORMAL) APTT (07/25/2017 11:00 AM EDT) [facility] Partial Thromboplastin Time 102(H) 25 - 35 sec [facility] Comment: The recommended therapeutic range for full dose, unfractionated heparin at [facility] is 80 ? 114 seconds. The use of the anti-Xa (heparin) level rather than the PTT is recommended for monitoring anticoagulation intensity in critically ill patients receiving unfractionated heparin by continuous IV infusion. Blood specimen (specimen) 07/25/2017 11:00 AM EDT 07/25/2017 11:05 AM EDT Narrative Resulting Agency Comment Spec In Lab Sriram Contreras MD HEMATOLOGY ORDERAB LES Performing Organization Address [facility] Co de Phone Number [facility] [place] [address] * POCT Glucose (07/25/2017 8:27 AM EDT) [facility] Glucose, POC 124 65 - 199 mg/dL [facility] Comment: Supplemental ranges: <140 mg/dL before meals <180 mg/dL all other times of the day Blood specimen (specimen) 07/25/2017 8:27 AM EDT 07/25/2017 8:27 AM EDT Sriram Contreras MD POINT OF CARE TEST ORDERABLES Performing Organization Address [facility] Co de Phone Number [facility] [place] [address] * (ABNORMAL) BLOOD GAS 2 ARTERIAL (07/25/2017 6:19 AM EDT) [facility] pH, Arterial 7.51(H) 7.35 - 7.45 [facility] PCO2, Arterial 29(L) 35 - 45 mmHg [facility] PO2, Arterial 59(L) 85 - 104 mmHg [facility] Bicarbonate, Arterial 22.2 20.0 - 26.0 mmol/L [facility] Base Excess, Arterial -0.9 -3.0 - 3.0 mmol/L [facility] Hgb Blood Gas 14.6 13.7 - 16.5 gm/dL [facility] Oxyhemoglobin, Arterial 91.1(L) 94.0 - 97.0 % [facility] Carboxyhemoglob in, Arterial 0.3 % [facility] Comment: Nonsmokers: 0.5-1.5% COHB Smokers: Variable, but usually less than 10% Toxic: 20-30% COHB Lethal: Greater than 60% COHB Methemoglobin, Arterial 0.6 <=1.5 % [facility] Na Whole Blood 141 135 - 145 mmol/L [facility] K Whole Blood 3.8 3.5 - 5.0 mmol/L [facility] Comment: Please note: Patients with WBC >100,000 may have falsely elevated Potassium levels. Contact the Clinical Chemistry Laboratory if there are any questions. ICa Whole Blood 1.17 1.15 - 1.33 mmol/L [facility] Comment: Note: ??Total bilirubin higher than 20 mg/dL may lead to falsely low ionized calcium. CL Whole Blood 108(H) 98 - 107 mmol/L [facility] Gluc Whole Bld 136 65 - 199 mg/dL [facility] Comment:Diabetes: >=200 mg/d L plus symptoms. Lactate WB 1.5 0.5 - 2.2 mmol/L [facility] Blood specimen (specimen) 07/25/2017 6:19 AM EDT 07/25/2017 6:19 AM EDT Sriram Contreras MD POINT OF CARE TEST ORDERABLES [facility] [place] [address] * POCT Glucose (07/25/2017 4:41 AM EDT) Glucose, POC 101 65 - 199 mg/dL [facility] Comment: Supplemental ranges: <140 mg/dL before meals <180 mg/dL all other times of the day Blood specimen (specimen) 07/25/2017 4:41 AM EDT 07/25/2017 4:41 AM EDT Sriram Contreras MD POINT OF CARE TEST ORDERABLES Performing Organization Address [facility]/ZIP Co de Phone Number [facility] [place] [address] * Magnesium (07/25/2017 4:37 AM EDT) [facility] Magnesium 0.83 0.69 - 1.07 mmol/L [facility] Blood specimen (specimen) Venous Draw / Unknown 07/25/2017 4:37 AM EDT 07/25/2017 4:50 AM EDT Narrative Resulting Agency Comment Spec In Lab Sriram Contreras MD CHEMISTRY ORDERABL ES Performing Organization Address City/[facility] Co de Phone Number [facility] [place] [address] * (ABNORMAL) Differential, Automated (07/25/2017 4:37 AM EDT) [facility] Neutrophil % 68.4 % [facility] Neutrophil Absolute 8.77(H) 1.70 - 6.10 x10(3)/mc L [facility] Lymph % 15.0 % [facility] Lymphocytes Abs 1.9 0.9 - 3.2 x10(3)/mc L [facility] Monocyte % 8.9 % [facility] Monocyte Abs 1.1(H) 0.3 - 0.9 x10(3)/mc L [facility] Eos % 1.9 % [facility] Eosinophils Abs 0.2 0.0 - 0.4 x10(3)/mc L [facility] Basophil % 1.0 % [facility] Baso Absolute 0.1 0.0 - 0.1 x10(3)/mc L [facility] Immature Gran % 4.80 % [facility] Comment: Immature granulocytes(IG's)percentage and absolute count will include metamyelocytes, myelocytes, and promyelocytes. Blood smears from CBCs yielding IG's will be scanned manually for concordance. If this scan disagrees with the automated IG or if promyelocytes are noted, a manual differential will be performed. Immature Gran Absolute 0.62(H) 0.00 - 0.04 x10(3)/mc L [facility] Blood specimen (specimen) 07/25/2017 4:37 AM EDT 07/25/2017 4:48 AM EDT Narrative Resulting Agency Comment Spec In Lab Sriram Contreras MD HEMATOLOGY ORDERAB LES Performing Organization Address City/State/[facility] Co de Phone Number [facility] [place] [address] * (ABNORMAL) Hemogram (07/25/2017 4:37 AM EDT) White Blood Cell 12.8(H) 4.0 - 9.5 x10(3)/ L [facility] Red Blood Cell 4.53(L) 4.58 - 5.54 x10(6)/mc L [facility] Hemoglobin 14.0 13.7 - 16.5 gm/dL [facility] Hematocrit 40.3(L) 40.5 - 48.5 % [facility] Mean Cell Volume 89.0 82.9 - 93.1 fL [facility] Mean Cell Hemoglobin 30.9 27.5 - 32.1 pg [facility] Mean Cell Hemoglobin Concentration 34.7 32.0 - 35.7 gm/dL [facility] Platelet 241 145 - 357 x10(3)/mc L [facility] RDW Standard Deviation 43.1 36.0 - 45.0 fL [facility] RDW coefficient of variation 13.2 11.4 - 13.8 % [facility] Mean Platelet Volume 9.9 7.6 - 12.9 fL [facility] NRBC% auto 0.0 % [facility] NRBC Absolute 0.000 0.000 - 0.000 x10(3)/mc L [facility] Blood specimen (specimen) 07/25/2017 4:37 AM EDT 07/25/2017 4:48 AM EDT Narrative Resulting Agency Comment Spec In Lab Sriram Contreras MD HEMATOLOGY ORDERAB LES [facility] [place] [address] * Basic Metabolic Panel (non-fasting) (07/25/2017 4:37 AM EDT) Glucose 120 65 - 199 mg/dL [facility] Comment:Diabetes: >=200 mg/d L plus symptoms Blood Urea Nitrogen 14 10 - 20 mg/dL [facility] Creatinine 0.81 0.80 - 1.50 mg/dL [facility] Comment: Please note that the pediatric reference intervals supplied above were not validated at [facility]. Results from pediatric patients should be interpreted in conjunction to the patient's age, height and muscle mass. Sodium 140 135 - 145 mmol/L [facility] Potassium 3.6 3.5 - 5.0 mmol/L [facility] Comment: Please note: ??Patients with WBC >100,000 may have falsely elevated Potassium levels. ??For accurate Potassium quantification in these patients send serum separator tube (gold top) for subsequent determinations. ??Contact the Clinical Chemistry Laboratory if there are any questions. Chloride 103 98 - 107 mmol/L [facility] Carbon Dioxide 24 22 - 31 mmol/L [facility] Anion Gap 13 5 - 15 mmol/L [facility] Calcium 8.8 8.5 - 10.5 mg/dL [facility] Est Glomerular Filtration Rate >60 >=60 [facility] Comment: This estimated GFR [...] the following links into your internet browser. [email or web address] Blood specimen (specimen) 07/25/2017 4:37 AM EDT 07/25/2017 4:48 AM EDT Narrative Resulting Agency Comment Spec In Lab Sriram Contreras MD CHEMISTRY ORDERABL ES Performing Organization Address [facility] Phone Number [facility] [place] [address] * (ABNORMAL) APTT (07/25/2017 4:37 AM EDT) Partial Thromboplastin Time 122(H) 25 - 35 sec [facility] Comment: The recommended therapeutic range for full dose, unfractionated heparin at [facility] is 80 ? 114 seconds. The use of the anti-Xa (heparin) level rather than the PTT is recommended for monitoring anticoagulation intensity in critically ill patients receiving unfractionated heparin by continuous IV infusion. Blood specimen (specimen) 07/25/2017 4:37 AM EDT 07/25/2017 4:48 AM EDT Narrative Resulting Agency Comment Spec In Lab Sriram Contreras MD HEMATOLOGY ORDERAB LES Performing Organization Address [facility] Phone Number [facility] [place] [address] * POCT Glucose (07/25/2017 12:10 AM EDT) Glucose, POC 108 65 - 199 mg/dL [facility] Comment: Supplemental ranges: <140 mg/dL before meals <180 mg/dL all other times of the day Blood specimen (specimen) 07/25/2017 12:10 AM EDT 07/25/2017 12:10 AM EDT Sriram Contreras MD POINT OF CARE TEST ORDERABLES [facility] [place] [address] * POCT Glucose (07/24/2017 8:05 PM EDT) Glucose, POC 112 65 - 199 mg/dL [facility] Comment: Supplemental ranges: <140 mg/dL before meals <180 mg/dL all other times of the day Blood specimen (specimen) 07/24/2017 8:05 PM EDT 07/24/2017 8:05 PM EDT Sriram Contreras MD POINT OF CARE TEST ORDERABLES Performing Organization Address City/[facility]/ZIP Co de Phone Number [facility] [place] [address] * POCT Glucose (07/24/2017 8:04 PM EDT) Glucose, POC 106 65 - 199 mg/dL [facility] Comment: Supplemental ranges: <140 mg/dL before meals <180 mg/dL all other times of the day Blood specimen (specimen) 07/24/2017 8:04 PM EDT 07/24/2017 8:04 PM EDT Sriram Contreras MD POINT OF CARE TEST ORDERABLES [facility] [place] [address] * POCT Glucose (07/24/2017 3:42 PM EDT) Glucose, POC 108 65 - 199 mg/dL [facility] Comment: Supplemental ranges: <140 mg/dL before meals <180 mg/dL all other times of the day Blood specimen (specimen) 07/24/2017 3:42 PM EDT 07/24/2017 3:42 PM EDT Sriram Contreras MD POINT OF CARE TEST ORDERABLES Performing Organization Address City/[facility] Co de Phone Number [facility] [place] [address] * POCT Glucose (07/24/2017 11:42 AM EDT) Glucose, POC 102 65 - 199 mg/dL [facility] Comment: Supplemental ranges: <140 mg/dL before meals <180 mg/dL all other times of the day Blood specimen (specimen) 07/24/2017 11:42 AM EDT 07/24/2017 11:42 AM EDT Sriram Contreras MD POINT OF CARE TEST ORDERABLES Performing Organization Address [facility] Co de Phone Number [facility] [place] [address] * POCT Glucose (07/24/2017 8:00 AM EDT) Glucose, POC 107 65 - 199 mg/dL [facility] Comment: Supplemental ranges: <140 mg/dL before meals <180 mg/dL all other times of the day Blood specimen (specimen) 07/24/2017 8:00 AM EDT 07/24/2017 8:00 AM EDT Sriram Contreras MD POINT OF CARE TEST ORDERABLES Performing Organization Address City/[facility] Co de Phone Number [facility] [place] [address] * (ABNORMAL) BLOOD GAS 2 ARTERIAL (07/24/2017 7:28 AM EDT) pH, Arterial 7.44 7.35 - 7.45 [facility] PCO2, Arterial 39 35 - 45 mmHg [facility] PO2, Arterial 67(L) 85 - 104 mmHg [facility] Bicarbonate, Arterial 25.5 20.0 - 26.0 mmol/L [facility] Base Excess, Arterial 1.2 -3.0 - 3.0 mmol/L [facility] Hgb Blood Gas 13.8 13.7 - 16.5 gm/dL [facility] Oxyhemoglobin, Arterial 92.8(L) 94.0 - 97.0 % [facility] Carboxyhemoglob in, Arterial 0.3 % [facility] Comment: Nonsmokers: 0.5-1.5% COHB Smokers: Variable, but usually less than 10% Toxic: 20-30% COHB Lethal: Greater than 60% COHB Methemoglobin, Arterial 0.6 <=1.5 % [facility] Na Whole Blood 139 135 - 145 mmol/L [facility] K Whole Blood 4.0 3.5 - 5.0 mmol/L [facility] Comment: Please note: Patients with WBC >100,000 may have falsely elevated Potassium levels. Contact the Clinical Chemistry Laboratory if there are any questions. ICa Whole Blood 1.21 1.15 - 1.33 mmol/L [facility] Comment: Note: ??Total bilirubin higher than 20 mg/dL may lead to falsely low ionized calcium. CL Whole Blood 105 98 - 107 mmol/L [facility] Gluc Whole Bld 123 65 - 199 mg/dL [facility] Comment:Diabetes: >=200 mg/d L plus symptoms. Lactate WB 1.7 0.5 - 2.2 mmol/L [facility] FIO2 Art 30 % [facility] PF Ratio Art 223 [facility] Blood specimen (specimen) 07/24/2017 7:28 AM EDT 07/24/2017 7:28 AM EDT Sriram Contreras MD POINT OF CARE TEST ORDERABLES [facility] [place] [address] * Potassium (07/24/2017 7:28 AM EDT) Potassium 4.1 3.5 - 5.0 mmol/L [facility] Comment: Please note: ??Patients [...] MD CHEMISTRY ORDERABL ES Performing Organization Address [facility] Co de Phone Number [facility] [place] [id number] * POCT Glucose (07/24/2017 3:42 AM EDT) [facility] Glucose, POC 91 65 - 199 mg/dL [facility] Comment: Supplemental ranges: <140 mg/dL before meals <180 mg/dL all other times of the day Blood specimen (specimen) 07/24/2017 3:42 AM EDT 07/24/2017 3:42 AM EDT Sriram Contreras MD POINT OF CARE TEST ORDERABLES Performing Organization Address [facility] Co de Phone Number [facility] [place] [address] * Scan, Peripheral Blood (07/24/2017 1:00 AM EDT) Plat estimate Normal [facility] RBC Morphology Normal [facility] Blood specimen (specimen) Venous Draw / Unknown 07/24/2017 1:00 AM EDT 07/24/2017 1:15 AM EDT Narrative Resulting Agency Comment Spec In Lab Sriram Contreras MD HEMATOLOGY ORDERAB LES Performing Organization Address [facility] [place] [address] * (ABNORMAL) Differential, Automated (07/24/2017 1:00 AM EDT) Pathologist [facility] [place] Neutrophil % 69.9 % [facility] Neutrophil Absolute 9.34(H) 1.70 - 6.10 x10(3)/ L [facility] Lymph % 13.7 % [facility] Lymphocytes Abs 1.8 0.9 - 3.2 x10(3)/ L [facility] Monocyte % 8.1 % [facility] Monocyte Abs 1.1(H) 0.3 - 0.9 x10(3)/[facility] Eos % 2.2 % [facility] Eosinophils Abs 0.3 0.0 - 0.4 x10(3)/[facility] Basophil % 0.7 % [facility] Baso Absolute 0.1 0.0 - 0.1 x10(3)/[facility] Immature Gran % 5.40 % [facility] Comment: Immature granulocytes(IG's)percentage and absolute count will include metamyelocytes, myelocytes, and promyelocytes. Blood smears from CBCs yielding IG's will be scanned manually for concordance. If this scan disagrees with the automated IG or if promyelocytes are noted, a manual differential will be performed. Immature Gran Absolute 0.72(H) 0.00 - 0.04 x10(3)/ L [facility] Blood specimen (specimen) 07/24/2017 1:00 AM EDT 07/24/2017 1:15 AM EDT Narrative Resulting Agency Comment Spec In Lab Sriram Contreras MD [place]EM[place]OLOG[place] [address] * (ABNORMAL) Hemogram (07/24/2017 1:00 AM EDT) [facility] White Blood Cell 13.4(H) 4.0 - 9.5 x10(3)/[facility] Red Blood Cell 4.13(L) 4.58 - 5.54 x10(6)/ L [facility] Hemoglobin 12.7(L) 13.7 - 16.5 gm/dL [facility] Hematocrit 38.0(L) 40.5 - 48.5 % [facility] Mean Cell Volume 92.0 82.9 - 93.1 fL [facility] Mean Cell Hemoglobin 30.8 27.5 - 32.1 pg [facility] Mean Cell Hemoglobin Concentration 33.4 32.0 - 35.7 gm/dL [facility] Platelet 201 145 - 357 x10(3)/[facility] RDW Standard Deviation 45.5(H) 36.0 - 45.0 fL [facility] RDW coefficient of variation 13.4 11.4 - 13.8 % [facility] Mean Platelet Volume 10.1 7.6 - 12.9 fL [facility] NRBC% auto 0.0 % [facility] NRBC Absolute 0.000 0.000 - 0.000 x10(3)/[facility] Blood specimen (specimen) 07/24/2017 1:00 AM EDT 07/24/2017 1:15 AM EDT Narrative Resulting Agency Comment Spec In Lab Sriram Contreras MD HEMATOLOGY ORDERAB LES [facility] [place] [address] * (ABNORMAL) APTT (07/24/2017 1:00 AM EDT) [facility] Partial Thromboplastin Time 102(H) 25 - 35 sec [facility] Comment: The recommended therapeutic range for full dose, unfractionated heparin at [facility] is 80 ? 114 seconds. The use of the anti-Xa (heparin) level rather than the PTT is recommended for monitoring anticoagulation intensity in critically ill patients receiving unfractionated heparin by continuous IV infusion. Blood specimen (specimen) 07/24/2017 1:00 AM EDT 07/24/2017 1:14 AM EDT Narrative Resulting Agency Comment Spec In Lab Sriram Contreras MD HEMATOLOGY ORDERAB LES [facility] [place] [address] * (ABNORMAL) Basic Metabolic Panel (non-fasting) (07/24/2017 1:00 AM EDT) Glucose 103 65 - 199 mg/dL [facility] Comment:Diabetes: >=200 mg/d L plus symptoms Blood Urea Nitrogen 17 10 - 20 mg/dL [facility] Creatinine 0.70(L) 0.80 - 1.50 mg/dL [facility] Comment: Please note that the pediatric reference intervals supplied above were not validated at [facility]. Results from pediatric patients should be interpreted in conjunction to the patient's age, height and muscle mass. Sodium 143 135 - 145 mmol/L [facility] Potassium 4.0 3.5 - 5.0 mmol/L [facility] Comment: Please note: ??Patients with WBC >100,000 may have falsely elevated Potassium levels. ??For accurate Potassium quantification in these patients send serum separator tube (gold top) for subsequent determinations. ??Contact the Clinical Chemistry Laboratory if there are any questions. Chloride 104 98 - 107 mmol/L [facility] Carbon Dioxide 27 22 - 31 mmol/L [facility] Anion Gap 12 5 - 15 mmol/L [facility] Calcium 8.7 8.5 - 10.5 mg/dL [facility] Est Glomerular Filtration Rate >60 >=60 [facility] Comment: This estimated GFR [...] the following links into your internet browser. [email or web address] Blood specimen (specimen) 07/24/2017 1:00 AM EDT 07/24/2017 1:14 AM EDT Narrative Resulting Agency Comment Spec In Lab Sriram Contreras MD CHEMISTRY ORDERABL ES Performing Organization Address [facility] Co de Phone Number [facility] [place] [address] * POCT Glucose (07/23/2017 11:53 PM EDT) Glucose, POC 95 65 - 199 mg/dL [facility] Comment: Supplemental ranges: <140 mg/dL before meals <180 mg/dL all other times of the day Blood specimen (specimen) 07/23/2017 11:53 PM EDT 07/23/2017 11:53 PM EDT Sriram Contreras MD POINT OF CARE TEST ORDERABLES Performing Organization Address [facility] Co de Phone Number [facility] [place] [address] * POCT Glucose (07/23/2017 7:52 PM EDT) Glucose, POC 91 65 - 199 mg/dL [facility] Comment: Supplemental ranges: <140 mg/dL before meals <180 mg/dL all other times of the day Blood specimen (specimen) 07/23/2017 7:52 PM EDT 07/23/2017 7:52 PM EDT Sriram Contreras MD POINT OF CARE TEST ORDERABLES Performing Organization Address [facility] Co de Phone Number [facility] [place] [address] * POCT Glucose (07/23/2017 2:56 PM EDT) Glucose, POC 115 65 - 199 mg/dL [facility] Comment: Supplemental ranges: <140 mg/dL before meals <180 mg/dL all other times of the day Blood specimen (specimen) 07/23/2017 2:56 PM EDT 07/23/2017 2:56 PM EDT Sriram Contreras MD POINT OF CARE TEST ORDERABLES Performing Organization Address [facility] de Phone Number [facility] [place] [address] * (ABNORMAL) APTT (07/23/2017 2:55 PM EDT) Partial Thromboplastin Time 101(H) 25 - 35 sec [facility] Comment: The recommended therapeutic range for full dose, unfractionated heparin at [facility] is 80 ? 114 seconds. The use of the anti-Xa (heparin) level rather than the PTT is recommended for monitoring anticoagulation intensity in critically ill patients receiving unfractionated heparin by continuous IV infusion. Blood specimen (specimen) 07/23/2017 2:55 PM EDT 07/23/2017 3:04 PM EDT Narrative Resulting Agency Comment Spec In Lab Sriram Contreras MD HEMATOLOGY ORDERAB LES Performing Organization Address [facility] Co de Phone Number [facility] [place] [address] * POCT Glucose (07/23/2017 12:07 PM EDT) Glucose, POC 97 65 - 199 mg/dL [facility] Comment: Supplemental ranges: <140 mg/dL before meals <180 mg/dL all other times of the day Blood specimen (specimen) 07/23/2017 12:07 PM EDT 07/23/2017 12:07 PM EDT Sriram Contreras MD POINT OF CARE TEST ORDERABLES Performing Organization Address [facility] Co de Phone Number [facility] [place] [address] * (ABNORMAL) APTT (07/23/2017 8:27 AM EDT) Partial Thromboplastin Time 95(H) 25 - 35 sec [facility] Comment: The recommended therapeutic range for full dose, unfractionated heparin at [facility] is 80 ? 114 seconds. The use of the anti-Xa (heparin) level rather than the PTT is recommended for monitoring anticoagulation intensity in critically ill patients receiving unfractionated heparin by continuous IV infusion. Blood specimen (specimen) 07/23/2017 8:27 AM EDT 07/23/2017 8:51 AM EDT Narrative Resulting Agency Comment Spec In Lab Sriram Contreras MD HEMATOLOGY ORDERAB LES Performing Organization Address [facility] de Phone Number [facility] [place] [address] * POCT Glucose (07/23/2017 8:02 AM EDT) [facility] Glucose, POC 103 65 - 199 mg/dL [facility] Comment: Supplemental ranges: <140 mg/dL before meals <180 mg/dL all other times of the day Blood specimen (specimen) 07/23/2017 8:02 AM EDT 07/23/2017 8:02 AM EDT Sriram Contreras MD POINT OF CARE TEST ORDERABLES Performing Organization Address [facility] Co de Phone Number [facility] [place] [address] * (ABNORMAL) BLOOD GAS 2 ARTERIAL (07/23/2017 6:32 AM EDT) pH, Arterial 7.41 7.35 - 7.45 [facility] PCO2, Arterial 37 35 - 45 mmHg [facility] PO2, Arterial 60(L) 85 - 104 mmHg [facility] Bicarbonate, Arterial 22.6 20.0 - 26.0 mmol/L [facility] Base Excess, Arterial -2.0 -3.0 - 3.0 mmol/L [facility] Hgb Blood Gas 12.7(L) 13.7 - 16.5 gm/dL [facility] Oxyhemoglobin, Arterial 90.3(L) 94.0 - 97.0 % [facility] Carboxyhemoglob in, Arterial 0.3 % [facility] Comment: Nonsmokers: 0.5-1.5% COHB Smokers: Variable, but usually less than 10% Toxic: 20-30% COHB Lethal: Greater than 60% COHB Methemoglobin, Arterial 0.5 <=1.5 % [facility] Na Whole Blood 138 135 - 145 mmol/L [facility] K Whole Blood 3.7 3.5 - 5.0 mmol/L [facility] Comment: Please note: Patients with WBC >100,000 may have falsely elevated Potassium levels. Contact the Clinical Chemistry Laboratory if there are any questions. ICa Whole Blood 1.15(L) 1.15 - 1.33 mmol/L [facility] Comment: Note: ??Total bilirubin higher than 20 mg/dL may lead to falsely low ionized calcium. CL Whole Blood 109(H) 98 - 107 mmol/L [facility] Gluc Whole Bld 122 65 - 199 mg/dL [facility] Comment:Diabetes: >=200 mg/d L plus symptoms. Lactate WB 1.4 0.5 - 2.2 mmol/L [facility] FIO2 Art 30 % [facility] PF Ratio Art 200 [facility] Blood specimen (specimen) 07/23/2017 6:32 AM EDT 07/23/2017 6:32 AM EDT Sriram Contreras MD POINT OF CARE TEST ORDERABLES [facility] [place] [address] * Potassium (07/23/2017 4:15 AM EDT) Potassium 4.1 3.5 - 5.0 mmol/L [facility] Comment: Please note: ??Patients [...] MD CHEMISTRY ORDERABL ES Performing Organization Address [facility]/ZIP Co de Phone Number [facility] [place] [address] * POCT Glucose (07/23/2017 3:50 AM EDT) [facility] Glucose, POC 126 65 - 199 mg/dL [facility] Comment: Supplemental ranges: <140 mg/dL before meals <180 mg/dL all other times of the day Blood specimen (specimen) 07/23/2017 3:50 AM EDT 07/23/2017 3:50 AM EDT Sriram Contreras MD POINT OF CARE TEST ORDERABLES Performing Organization Address [facility] Co de Phone Number [facility] [place] [address] * (ABNORMAL) APTT (07/23/2017 1:53 AM EDT) Partial Thromboplastin Time 119(H) 25 - 35 sec [facility] Comment: The recommended therapeutic range for full dose, unfractionated heparin at [facility] is 80 ? 114 seconds. The use of the anti-Xa (heparin) level rather than the PTT is recommended for monitoring anticoagulation intensity in critically ill patients receiving unfractionated heparin by continuous IV infusion. Blood specimen (specimen) 07/23/2017 1:53 AM EDT 07/23/2017 2:01 AM EDT Narrative Resulting Agency Comment Spec In Lab Sriram Contreras MD HEMATOLOGY ORDERAB LES Performing Organization Address [facility]/ZIP Co de Phone Number [facility] [place] [address] * (ABNORMAL) Differential, Automated (07/23/2017 12:45 AM EDT) Neutrophil % 63.2 % [facility] Neutrophil Absolute 6.47(H) 1.70 - 6.10 x10(3)/ L [facility] Lymph % 20.9 % [facility] Lymphocytes Abs 2.1 0.9 - 3.2 x10(3)/ L [facility] Monocyte % 7.6 % [facility] Monocyte Abs 0.8 0.3 - 0.9 x10(3)/ L [facility] Eos % 2.8 % [facility] Eosinophils Abs 0.3 0.0 - 0.4 x10(3)/ L [facility] Basophil % 0.7 % [facility] Baso Absolute 0.1 0.0 - 0.1 x10(3)/ L [facility] Immature Gran % 4.80 % [facility] Comment: Immature granulocytes(IG's)percentage and absolute count will include metamyelocytes, myelocytes, and promyelocytes. Blood smears from CBCs yielding IG's will be scanned manually for concordance. If this scan disagrees with the automated IG or if promyelocytes are noted, a manual differential will be performed. Immature Gran Absolute 0.49(H) 0.00 - 0.04 x10(3)/ L [facility] Blood specimen (specimen) 07/23/2017 12:45 AM EDT 07/23/2017 12:51 AM EDT Narrative Resulting Agency Comment Spec In Lab Sriram Contreras MD HEMATOLOGY ORDERAB LES [facility] [place] [address] * (ABNORMAL) Hemogram (07/23/2017 12:45 AM EDT) White Blood Cell 10.2(H) 4.0 - 9.5 x10(3)/mc L [facility] Red Blood Cell 3.62(L) 4.58 - 5.54 x10(6)/mc L [facility] Hemoglobin 11.1(L) 13.7 - 16.5 gm/dL [facility] Hematocrit 33.5(L) 40.5 - 48.5 % [facility] Mean Cell Volume 92.5 82.9 - 93.1 fL [facility] Mean Cell Hemoglobin 30.7 27.5 - 32.1 pg [facility] Mean Cell Hemoglobin Concentration 33.1 32.0 - 35.7 gm/dL [facility] Platelet 165 145 - 357 x10(3)/ L [facility] RDW Standard Deviation 46.6(H) 36.0 - 45.0 fL [facility] RDW coefficient of variation 13.7 11.4 - 13.8 % [facility] Mean Platelet Volume 9.9 7.6 - 12.9 fL [facility] NRBC% auto 0.0 % [facility] NRBC Absolute 0.000 0.000 - 0.000 x10(3)/ L [facility] Blood specimen (specimen) 07/23/2017 12:45 AM EDT 07/23/2017 12:51 AM EDT Narrative Resulting Agency Comment Spec In Lab Sriram Contreras MD HEMATOLOGY ORDERAB LES [facility] [place] [address] * (ABNORMAL) Basic Metabolic Panel (non-fasting) (07/23/2017 12:45 AM EDT) Glucose 127 65 - 199 mg/dL [facility] Comment:Diabetes: >=200 mg/d L plus symptoms Blood Urea Nitrogen 20 10 - 20 mg/dL [facility] Creatinine 0.65(L) 0.80 - 1.50 mg/dL [facility] Comment: Please note that the pediatric reference intervals supplied above were not validated at [facility]. Results from pediatric patients should be interpreted in conjunction to the patient's age, height and muscle mass. Sodium 142 135 - 145 mmol/L [facility] Potassium 3.7 3.5 - 5.0 mmol/L [facility] Comment: Please note: ??Patients with WBC >100,000 may have falsely elevated Potassium levels. ??For accurate Potassium quantification in these patients send serum separator tube (gold top) for subsequent determinations. ??Contact the Clinical Chemistry Laboratory if there are any questions. Chloride 105 98 - 107 mmol/L [facility] Carbon Dioxide 26 22 - 31 mmol/L [facility] Anion Gap 11 5 - 15 mmol/L [facility] Calcium 8.3(L) 8.5 - 10.5 mg/dL [facility] Est Glomerular Filtration Rate >60 >=60 [facility] Comment: This estimated GFR [...] the following links into your internet browser. [email or web address] Blood specimen (specimen) 07/23/2017 12:45 AM EDT 07/23/2017 12:51 AM EDT Narrative Resulting Agency Comment Spec In Lab Sriram Contreras MD CHEMISTRY ORDERABL ES [facility] [place] [address] * POCT Glucose (07/22/2017 11:59 PM EDT) Glucose, POC 113 65 - 199 mg/dL [facility] Comment: Supplemental ranges: <140 mg/dL before meals <180 mg/dL all other times of the day Blood specimen (specimen) 07/22/2017 11:59 PM EDT 07/22/2017 11:59 PM EDT Sriram Contreras MD POINT OF CARE TEST ORDERABLES Performing Organization Address [facility] Co de Phone Number [facility] [place] [address] * POCT Glucose (07/22/2017 8:07 PM EDT) Glucose, POC 111 65 - 199 mg/dL [facility] Comment: Supplemental ranges: <140 mg/dL before meals <180 mg/dL all other times of the day Blood specimen (specimen) 07/22/2017 8:07 PM EDT 07/22/2017 8:07 PM EDT Sriram Contreras MD POINT OF CARE TEST ORDERABLES Performing Organization Address [facility] Co de Phone Number [facility] [place] [address] * POCT Glucose (07/22/2017 4:00 PM EDT) Glucose, POC 112 65 - 199 mg/dL [facility] Comment: Supplemental ranges: <140 mg/dL before meals <180 mg/dL all other times of the day Blood specimen (specimen) 07/22/2017 4:00 PM EDT 07/22/2017 4:00 PM EDT Sriram Contreras MD POINT OF CARE TEST ORDERABLES [facility] [place] [address] * (ABNORMAL) APTT (07/22/2017 4:00 PM EDT) Partial Thromboplastin Time 92(H) 25 - 35 sec [facility] Comment: The recommended therapeutic range for full dose, unfractionated heparin at [facility] is 80 ? 114 seconds. The use of the anti-Xa (heparin) level rather than the PTT is recommended for monitoring anticoagulation intensity in critically ill patients receiving unfractionated heparin by continuous IV infusion. Blood specimen (specimen) 07/22/2017 4:00 PM EDT 07/22/2017 4:18 PM EDT Narrative Resulting Agency Comment Spec In Lab Sriram Contreras MD HEMATOLOGY ORDERAB LES Performing Organization Address [facility] Co de Phone Number [facility] [place] [address] * POCT Glucose (07/22/2017 11:45 AM EDT) [facility] Glucose, POC 111 65 - 199 mg/dL [facility] Comment: Supplemental ranges: <140 mg/dL before meals <180 mg/dL all other times of the day Blood specimen (specimen) 07/22/2017 11:45 AM EDT 07/22/2017 11:45 AM EDT Sriram Contreras MD POINT OF CARE TEST ORDERABLES Performing Organization Address [facility] Co de Phone Number [facility] [place] [address] * (ABNORMAL) APTT (07/22/2017 8:30 AM EDT) Partial Thromboplastin Time 83(H) 25 - 35 sec [facility] Comment: The recommended therapeutic range for full dose, unfractionated heparin at [facility] is 80 ? 114 seconds. The use of the anti-Xa (heparin) level rather than the PTT is recommended for monitoring anticoagulation intensity in critically ill patients receiving unfractionated heparin by continuous IV infusion. Blood specimen (specimen) 07/22/2017 8:30 AM EDT 07/22/2017 8:39 AM EDT Narrative Resulting Agency Comment Spec In Lab Sriram Contreras MD HEMATOLOGY ORDERAB LES Performing Organization Address [facility] Co de Phone Number [facility] [place] [address] * POCT Glucose (07/22/2017 8:28 AM EDT) Pathologist [facility] [place] Glucose, POC 118 65 - 199 mg/dL [facility] Comment: Supplemental ranges: <140 mg/dL before meals <180 mg/dL all other times of the day Blood specimen (specimen) 07/22/2017 8:28 AM EDT 07/22/2017 8:28 AM EDT Sriram Contreras MD POINT OF CARE TEST ORDERABLES Performing Organization Address [facility] Co de Phone Number [facility] [place] [address] * (ABNORMAL) BLOOD GAS 2 ARTERIAL (07/22/2017 8:27 AM EDT) pH, Arterial 7.42 7.35 - 7.45 [facility] PCO2, Arterial 39 35 - 45 mmHg [facility] PO2, Arterial 78(L) 85 - 104 mmHg [facility] Bicarbonate, Arterial 24.8 20.0 - 26.0 mmol/L [facility] Base Excess, Arterial 0.3 -3.0 - 3.0 mmol/L [facility] Hgb Blood Gas 13.4(L) 13.7 - 16.5 gm/dL [facility] Oxyhemoglobin, Arterial 94.2 94.0 - 97.0 % [facility] Carboxyhemoglob in, Arterial 0.3 % [facility] Comment: Nonsmokers: 0.5-1.5% COHB Smokers: Variable, but usually less than 10% Toxic: 20-30% COHB Lethal: Greater than 60% COHB Methemoglobin, Arterial 0.6 <=1.5 % [facility] Na Whole Blood 140 135 - 145 mmol/L [facility] K Whole Blood 3.8 3.5 - 5.0 mmol/L [facility] Comment: Please note: Patients with WBC >100,000 may have falsely elevated Potassium levels. Contact the Clinical Chemistry Laboratory if there are any questions. ICa Whole Blood 1.21 1.15 - 1.33 mmol/L [facility] Comment: Note: ??Total bilirubin higher than 20 mg/dL may lead to falsely low ionized calcium. CL Whole Blood 107 98 - 107 mmol/L [facility] Gluc Whole Bld 130 65 - 199 mg/dL [facility] Comment:Diabetes: >=200 mg/d L plus symptoms. Lactate WB 1.6 0.5 - 2.2 mmol/L [facility] FIO2 Art 40 % [facility] PF Ratio Art 195 [facility] Blood specimen (specimen) 07/22/2017 8:27 AM EDT 07/22/2017 8:27 AM EDT Sriram Contreras MD POINT OF CARE TEST ORDERABLES Performing Organization Address City/State/[facility] Co de Phone Number [facility] [place] [address] * (ABNORMAL) Differential, Automated (07/22/2017 3:10 AM EDT) Neutrophil % 72.0 % [facility] Neutrophil Absolute 8.75(H) 1.70 - 6.10 x10(3)/mc L [facility] Lymph % 15.0 % [facility] Lymphocytes Abs 1.8 0.9 - 3.2 x10(3)/mc L [facility] Monocyte % 8.0 % [facility] Monocyte Abs 1.0(H) 0.3 - 0.9 x10(3)/mc L [facility] Eos % 2.4 % [facility] Eosinophils Abs 0.3 0.0 - 0.4 x10(3)/[facility] Basophil % 0.3 % [facility] Baso Absolute 0.0 0.0 - 0.1 x10(3)/[facility] Immature Gran % 2.30 % [facility] Comment: Immature granulocytes(IG's)percentage and absolute count will include metamyelocytes, myelocytes, and promyelocytes. Blood smears from CBCs yielding IG's will be scanned manually for concordance. If this scan disagrees with the automated IG or if promyelocytes are noted, a manual differential will be performed. Immature Gran Absolute 0.28(H) 0.00 - 0.04 x10(3)/[facility] Blood specimen (specimen) 07/22/2017 3:10 AM EDT 07/22/2017 3:15 AM EDT Narrative Resulting Agency Comment Spec In Lab Sriram Contreras MD HEMATOLOGY ORDERAB LES Performing Organization Address City/State/[facility] Co de Phone Number [facility] [place] [address] * (ABNORMAL) Hemogram (07/22/2017 3:10 AM EDT) White Blood Cell 12.2(H) 4.0 - 9.5 x10(3)/ L [facility] Red Blood Cell 4.05(L) 4.58 - 5.54 x10(6)/mc L [facility] Hemoglobin 12.5(L) 13.7 - 16.5 gm/dL [facility] Hematocrit 37.9(L) 40.5 - 48.5 % [facility] Mean Cell Volume 93.6(H) 82.9 - 93.1 fL [facility] Mean Cell Hemoglobin 30.9 27.5 - 32.1 pg [facility] Mean Cell Hemoglobin Concentration 33.0 32.0 - 35.7 gm/dL [facility] Platelet 168 145 - 357 x10(3)/mc L [facility] RDW Standard Deviation 48.9(H) 36.0 - 45.0 fL [facility] RDW coefficient of variation 14.1(H) 11.4 - 13.8 % [facility] Mean Platelet Volume 10.2 7.6 - 12.9 fL [facility] NRBC% auto 0.0 % [facility] NRBC Absolute 0.000 0.000 - 0.000 x10(3)/mc L [facility] Blood specimen (specimen) 07/22/2017 3:10 AM EDT 07/22/2017 3:15 AM EDT Narrative Resulting Agency Comment Spec In Lab Sriram Contreras MD HEMATOLOGY ORDERAB LES Performing Organization Address [facility] de Phone Number [facility] [place] [address] * (ABNORMAL) APTT (07/22/2017 3:10 AM EDT) Partial Thromboplastin Time 89(H) 25 - 35 sec [facility] Comment: The recommended therapeutic range for full dose, unfractionated heparin at [facility] is 80 ? 114 seconds. The use of the anti-Xa (heparin) level rather than the PTT is recommended for monitoring anticoagulation intensity in critically ill patients receiving unfractionated heparin by continuous IV infusion. Blood specimen (specimen) 07/22/2017 3:10 AM EDT 07/22/2017 3:15 AM EDT Narrative Resulting Agency Comment Spec In Lab Sriram Contreras MD HEMATOLOGY ORDERAB LES Performing Organization Address [facility] Co de Phone Number [facility] [place] [address] * (ABNORMAL) Basic Metabolic Panel (non-fasting) (07/22/2017 3:10 AM EDT) Glucose 121 65 - 199 mg/dL [facility] Comment:Diabetes: >=200 mg/d L plus symptoms Blood Urea Nitrogen 23(H) 10 - 20 mg/dL [facility] Creatinine 0.76(L) 0.80 - 1.50 mg/dL [facility] Comment: Please note that the pediatric reference intervals supplied above were not validated at [facility]. Results from pediatric patients should be interpreted in conjunction to the patient's age, height and muscle mass. Sodium 144 135 - 145 mmol/L [facility] Potassium 3.9 3.5 - 5.0 mmol/L [facility] Comment: Please note: ??Patients with WBC >100,000 may have falsely elevated Potassium levels. ??For accurate Potassium quantification in these patients send serum separator tube (gold top) for subsequent determinations. ??Contact the Clinical Chemistry Laboratory if there are any questions. Chloride 106 98 - 107 mmol/L [facility] Carbon Dioxide 25 22 - 31 mmol/L [facility] Anion Gap 13 5 - 15 mmol/L [facility] Calcium 8.3(L) 8.5 - 10.5 mg/dL [facility] Est Glomerular Filtration Rate >60 >=60 [facility] Comment: This estimated GFR [...] the following links into your internet browser. [email or web address] Blood specimen (specimen) 07/22/2017 3:10 AM EDT 07/22/2017 3:15 AM EDT Narrative Resulting Agency Comment Spec In Lab Sriram Contreras MD CHEMISTRY ORDERABL ES [facility] [place] [address] * POCT Glucose (07/22/2017 3:08 AM EDT) Glucose, POC 109 65 - 199 mg/dL [facility] Comment: Supplemental ranges: <140 mg/dL before meals <180 mg/dL all other times of the day Blood specimen (specimen) 07/22/2017 3:08 AM EDT 07/22/2017 3:08 AM EDT Sriram Contreras MD POINT OF CARE TEST ORDERABLES [facility] [place] [address] * POCT Glucose (07/21/2017 11:52 PM EDT) Glucose, POC 135 65 - 199 mg/dL [facility] Comment: Supplemental ranges: <140 mg/dL before meals <180 mg/dL all other times of the day Blood specimen (specimen) 07/21/2017 11:52 PM EDT 07/21/2017 11:52 PM EDT Sriram Contreras MD POINT OF CARE TEST ORDERABLES Performing Organization Address City/[facility]/ZIP Co de Phone Number [facility] [place] [address] * EKG 12 Lead (07/21/2017 10:42 PM EDT) Ventricular rate 75 BPM MUSE SYSTEM Atrial Rate 258 BPM MUSE SYSTEM QRS Duration 86 ms MUSE SYSTEM Q-T Interval 400 ms MUSE SYSTEM QTC Calculated (Bezet) 446 ms MUSE SYSTEM Calculated R [place] 61 degrees MUSE SYSTEM Calculated T [place] 136 degrees MUSE SYSTEM INTERPRETATION Atrial fibrillation [...] Contreras MD ECG ORDERABLES Performing Organization Address City/[facility]/ZIP Co de Phone Number MUSE SYSTEM * Magnesium (07/21/2017 10:35 PM EDT) Magnesium 0.80 0.69 - 1.07 mmol/L [facility] Blood specimen (specimen) 07/21/2017 10:35 PM EDT 07/21/2017 10:40 PM EDT Narrative Resulting Agency Comment Spec In Lab Sriram Contreras MD CHEMISTRY ORDERABL ES Performing Organization Address [facility] de Phone Number [facility] [place] [address] * (ABNORMAL) Basic Metabolic Panel (non-fasting) (07/21/2017 10:35 PM EDT) Glucose 135 65 - 199 mg/dL [facility] Comment:Diabetes: >=200 mg/d L plus symptoms Blood Urea Nitrogen 23(H) 10 - 20 mg/dL [facility] Creatinine 0.88 0.80 - 1.50 mg/dL [facility] Comment: Please note that the pediatric reference intervals supplied above were not validated at [facility]. Results from pediatric patients should be interpreted in conjunction to the patient's age, height and muscle mass. Sodium 144 135 - 145 mmol/L [facility] Potassium 4.0 3.5 - 5.0 mmol/L [facility] Comment: Please note: ??Patients with WBC >100,000 may have falsely elevated Potassium levels. ??For accurate Potassium quantification in these patients send serum separator tube (gold top) for subsequent determinations. ??Contact the Clinical Chemistry Laboratory if there are any questions. Chloride 107 98 - 107 mmol/L [facility] Carbon Dioxide 25 22 - 31 mmol/L [facility] Anion Gap 12 5 - 15 mmol/L [facility] Calcium 8.7 8.5 - 10.5 mg/dL [facility] Est Glomerular Filtration Rate >60 >=60 [facility] Comment: This estimated GFR [...] the following links into your internet browser. [email or web address] Blood specimen (specimen) 07/21/2017 10:35 PM EDT 07/21/2017 10:40 PM EDT Narrative Resulting Agency Comment Spec In Lab Sriram Contreras MD CHEMISTRY ORDERABL ES Performing Organization Address [facility] de Phone Number [facility] [place] [address] * (ABNORMAL) APTT (07/21/2017 9:10 PM EDT) Partial Thromboplastin Time 87(H) 25 - 35 sec [facility] Comment: The recommended therapeutic range for full dose, unfractionated heparin at [facility] is 80 ? 114 seconds. The use of the anti-Xa (heparin) level rather than the PTT is recommended for monitoring anticoagulation intensity in critically ill patients receiving unfractionated heparin by continuous IV infusion. Blood specimen (specimen) 07/21/2017 9:10 PM EDT 07/21/2017 9:17 PM EDT Narrative Resulting Agency Comment Spec In Lab Sriram Contreras MD HEMATOLOGY ORDERAB LES Performing Organization Address [facility] Co de Phone Number [facility] [place] [address] * POCT Glucose (07/21/2017 7:49 PM EDT) Glucose, POC 117 65 - 199 mg/dL [facility] Comment: Supplemental ranges: <140 mg/dL before meals <180 mg/dL all other times of the day Blood specimen (specimen) 07/21/2017 7:49 PM EDT 07/21/2017 7:49 PM EDT Sriram Contreras MD POINT OF CARE TEST ORDERABLES Performing Organization Address [facility] Co de Phone Number [facility] [place] [address] * POCT Glucose (07/21/2017 4:10 PM EDT) Glucose, POC 116 65 - 199 mg/dL [facility] Comment: Supplemental ranges: <140 mg/dL before meals <180 mg/dL all other times of the day Blood specimen (specimen) 07/21/2017 4:10 PM EDT 07/21/2017 4:10 PM EDT Sriram Contreras MD POINT OF CARE TEST ORDERABLES Performing Organization Address [facility] de Phone Number [facility] [place] [address] * (ABNORMAL) APTT (07/21/2017 4:10 PM EDT) Partial Thromboplastin Time 78(H) 25 - 35 sec [facility] Comment: The recommended therapeutic range for full dose, unfractionated heparin at [facility] is 80 ? 114 seconds. The use of the anti-Xa (heparin) level rather than the PTT is recommended for monitoring anticoagulation intensity in critically ill patients receiving unfractionated heparin by continuous IV infusion. Blood specimen (specimen) 07/21/2017 4:10 PM EDT 07/21/2017 4:28 PM EDT Narrative Resulting Agency Comment Spec In Lab Sriram Contreras MD HEMATOLOGY ORDERAB LES Performing Organization Address [facility] Co de Phone Number [facility] [place] [address] * POCT Glucose (07/21/2017 12:04 PM EDT) Glucose, POC 138 65 - 199 mg/dL [facility] Comment: Supplemental ranges: <140 mg/dL before meals <180 mg/dL all other times of the day Blood specimen (specimen) 07/21/2017 12:04 PM EDT 07/21/2017 12:04 PM EDT Sriram Contreras MD POINT OF CARE TEST ORDERABLES Performing Organization Address [facility] de Phone Number [facility] [place] [address] * C. Difficile Screen (07/21/2017 9:00 AM EDT) Pathologist [facility] [place] C Diff Interp Negative Negative [facility] Comment: C. diff ??Negative Clostridium [...] - GEN ERAL ORDERABLES Performing Organization Address [facility] Co de Phone Number [facility] [place] [address] * Potassium (07/21/2017 8:30 AM EDT) Pathologist [facility] [place] Potassium 3.8 3.5 - 5.0 mmol/L [facility] Comment: Please note: ??Patients [...] CHEMISTRY ORDERABL ES Performing Organization Address [facility] de Phone Number [facility] [place] [address] * (ABNORMAL) APTT (07/21/2017 8:30 AM EDT) Partial Thromboplastin Time 63(H) 25 - 35 sec [facility] Comment: The recommended therapeutic range for full dose, unfractionated heparin at [facility] is 80 ? 114 seconds. The use of the anti-Xa (heparin) level rather than the PTT is recommended for monitoring anticoagulation intensity in critically ill patients receiving unfractionated heparin by continuous IV infusion. Blood specimen (specimen) 07/21/2017 8:30 AM EDT 07/21/2017 8:40 AM EDT Narrative Resulting Agency Comment Spec In Lab Sriram Contreras MD HEMATOLOGY ORDERAB LES Performing Organization Address [facility] de Phone Number [facility] [place] [address] * POCT Glucose (07/21/2017 8:24 AM EDT) [facility] Glucose, POC 131 65 - 199 mg/dL [facility] Comment: Supplemental ranges: <140 mg/dL before meals <180 mg/dL all other times of the day Blood specimen (specimen) 07/21/2017 8:24 AM EDT 07/21/2017 8:24 AM EDT Sriram Contreras MD POINT OF CARE TEST ORDERABLES Performing Organization Address [facility] Co de Phone Number [facility] [place] [address] * (ABNORMAL) BLOOD GAS 2 ARTERIAL (07/21/2017 7:42 AM EDT) [facility] Signature pH, Arterial 7.44 7.35 - 7.45 [facility] PCO2, Arterial 37 35 - 45 mmHg [facility] PO2, Arterial 72(L) 85 - 104 mmHg [facility] Bicarbonate, Arterial 24.5 20.0 - 26.0 mmol/L [facility] Base Excess, Arterial 0.3 -3.0 - 3.0 mmol/L [facility] Hgb Blood Gas 14.0 13.7 - 16.5 gm/dL [facility] Oxyhemoglobin, Arterial 93.8(L) 94.0 - 97.0 % [facility] Carboxyhemoglob in, Arterial 0.3 % [facility] Comment: Nonsmokers: 0.5-1.5% COHB Smokers: Variable, but usually less than 10% Toxic: 20-30% COHB Lethal: Greater than 60% COHB Methemoglobin, Arterial 0.5 <=1.5 % [facility] Na Whole Blood 143 135 - 145 mmol/L [facility] K Whole Blood 4.0 3.5 - 5.0 mmol/L [facility] Comment: Please note: Patients with WBC >100,000 may have falsely elevated Potassium levels. Contact the Clinical Chemistry Laboratory if there are any questions. ICa Whole Blood 1.22 1.15 - 1.33 mmol/L [facility] Comment: Note: ??Total bilirubin higher than 20 mg/dL may lead to falsely low ionized calcium. CL Whole Blood 111(H) 98 - 107 mmol/L [facility] Gluc Whole Bld 148 65 - 199 mg/dL [facility] Comment:Diabetes: >=200 mg/d L plus symptoms. Lactate WB 1.5 0.5 - 2.2 mmol/L [facility] FIO2 Art 40 % [facility] PF Ratio Art 180 [facility] Blood specimen (specimen) 07/21/2017 7:42 AM EDT 07/21/2017 7:42 AM EDT Sriram Contreras MD POINT OF CARE TEST ORDERABLES Performing Organization Address [facility] de Phone Number [facility] [place] [address] * POCT Glucose (07/21/2017 3:21 AM EDT) [facility] Glucose, POC 116 65 - 199 mg/dL [facility] Comment: Supplemental ranges: <140 mg/dL before meals <180 mg/dL all other times of the day Blood specimen (specimen) 07/21/2017 3:21 AM EDT 07/21/2017 3:21 AM EDT Sriram Contreras MD POINT OF CARE TEST ORDERABLES Performing Organization Address [facility] de Phone Number [facility] [place] [address] * Potassium (07/21/2017 3:20 AM EDT) [facility] Potassium 4.0 3.5 - 5.0 mmol/L [facility] Comment: Please note: ??Patients [...] ORDERABL ES Performing Organization Address [facility] Co de Phone Number [facility] [place] [address] * (ABNORMAL) APTT (07/21/2017 1:05 AM EDT) [facility] Partial Thromboplastin Time 42(H) 25 - 35 sec [facility] Comment: The recommended therapeutic range for full dose, unfractionated heparin at [facility] is 80 ? 114 seconds. The use of the anti-Xa (heparin) level rather than the PTT is recommended for monitoring anticoagulation intensity in critically ill patients receiving unfractionated heparin by continuous IV infusion. Blood specimen (specimen) 07/21/2017 1:05 AM EDT 07/21/2017 1:08 AM EDT Narrative Resulting Agency Comment Spec In Lab Sriram Contreras MD HEMATOLOGY ORDERAB LES [facility] [place] [address] * (ABNORMAL) Differential, Automated (07/21/2017 12:25 AM EDT) Neutrophil % 75.8 % [facility] Neutrophil Absolute 7.59(H) 1.70 - 6.10 x10(3)/ L [facility] Lymph % 12.8 % [facility] Lymphocytes Abs 1.3 0.9 - 3.2 x10(3)/ L [facility] Monocyte % 9.0 % [facility] Monocyte Abs 0.9 0.3 - 0.9 x10(3)/ L [facility] Eos % 1.1 % [facility] Eosinophils Abs 0.1 0.0 - 0.4 x10(3)/ L [facility] Basophil % 0.3 % [facility] Baso Absolute 0.0 0.0 - 0.1 x10(3)/ L [facility] Immature Gran % 1.00 % [facility] Comment: Immature granulocytes(IG's)percentage and absolute count will include metamyelocytes, myelocytes, and promyelocytes. Blood smears from CBCs yielding IG's will be scanned manually for concordance. If this scan disagrees with the automated IG or if promyelocytes are noted, a manual differential will be performed. Immature Gran Absolute 0.10(H) 0.00 - 0.04 x10(3)/mc L [facility] Blood specimen (specimen) 07/21/2017 12:25 AM EDT 07/21/2017 12:48 AM EDT Narrative Resulting Agency Comment Spec In Lab Sriram Contreras MD HEMATOLOGY ORDERAB LES Performing Organization Address City/[facility]/ZIP Co de Phone Number [facility] [place] [address] * (ABNORMAL) Hemogram (07/21/2017 12:25 AM EDT) White Blood Cell 10.0(H) 4.0 - 9.5 x10(3)/ L [facility] Red Blood Cell 4.24(L) 4.58 - 5.54 x10(6)/mc L [facility] Hemoglobin 13.2(L) 13.7 - 16.5 gm/dL [facility] Hematocrit 39.4(L) 40.5 - 48.5 % [facility] Mean Cell Volume 92.9 82.9 - 93.1 [facility] Mean Cell Hemoglobin 31.1 27.5 - 32.1 [facility] Mean Cell Hemoglobin Concentration 33.5 32.0 - 35.7 gm/dL [facility] Platelet 163 145 - 357 x10(3)/mc L [facility] RDW Standard Deviation 48.0(H) 36.0 - 45.0 [facility] RDW coefficient of variation 14.1(H) 11.4 - 13.8 % [facility] Mean Platelet Volume 10.2 7.6 - 12.9 [facility] NRBC% auto 0.0 % [facility] NRBC Absolute 0.000 0.000 - 0.000 x10(3)/[facility] Blood specimen (specimen) 07/21/2017 12:25 AM EDT 07/21/2017 12:48 AM EDT Narrative Resulting Agency Comment Spec In Lab Sriram Contreras MD HEMATOLOGY ORDERAB LES Performing Organization Address City/[facility]/ZIP Co de Phone Number [facility] [place] [address] * (ABNORMAL) Basic Metabolic Panel (non-fasting) (07/21/2017 12:25 AM EDT) Glucose 132 65 - 199 mg/dL [facility] Comment:Diabetes: >=200 mg/d L plus symptoms Blood Urea Nitrogen 22(H) 10 - 20 mg/dL [facility] Creatinine 0.79(L) 0.80 - 1.50 mg/dL [facility] Comment: Please note that the pediatric reference intervals supplied above were not validated at [facility]. Results from pediatric patients should be interpreted in conjunction to the patient's age, height and muscle mass. Sodium 146(H) 135 - 145 mmol/L [facility] Potassium 3.8 3.5 - 5.0 mmol/L [facility] Comment: Please note: ??Patients with WBC >100,000 may have falsely elevated Potassium levels. ??For accurate Potassium quantification in these patients send serum separator tube (gold top) for subsequent determinations. ??Contact the Clinical Chemistry Laboratory if there are any questions. Chloride 110(H) 98 - 107 mmol/L [facility] Carbon Dioxide 25 22 - 31 mmol/L [facility] Anion Gap 11 5 - 15 mmol/L [facility] Calcium 8.5 8.5 - 10.5 mg/dL [facility] Est Glomerular Filtration Rate >60 >=60 [facility] Comment: This estimated GFR [...] the following links into your internet browser. [email or web address] Blood specimen (specimen) 07/21/2017 12:25 AM EDT 07/21/2017 12:48 AM EDT Narrative Resulting Agency Comment Spec In Lab Sriram Contreras MD CHEMISTRY ORDERABL ES [facility] [place] [address] * (ABNORMAL) BLOOD GAS 2 ARTERIAL (07/21/2017 12:21 AM EDT) pH, Arterial 7.44 7.35 - 7.45 [facility] PCO2, Arterial 37 35 - 45 mmHg [facility] PO2, Arterial 70(L) 85 - 104 mmHg [facility] Bicarbonate, Arterial 24.1 20.0 - 26.0 mmol/L [facility] Base Excess, Arterial 0.1 -3.0 - 3.0 mmol/L [facility] Hgb Blood Gas 14.3 13.7 - 16.5 gm/dL [facility] Oxyhemoglobin, Arterial 92.8(L) 94.0 - 97.0 % [facility] Carboxyhemoglob in, Arterial 0.0 % [facility] Comment: Nonsmokers: 0.5-1.5% COHB Smokers: Variable, but usually less than 10% Toxic: 20-30% COHB Lethal: Greater than 60% COHB Methemoglobin, Arterial 0.4 <=1.5 % [facility] Na Whole Blood 145 135 - 145 mmol/L [facility] K Whole Blood 3.9 3.5 - 5.0 mmol/L [facility] Comment: Please note: Patients with WBC >100,000 may have falsely elevated Potassium levels. Contact the Clinical Chemistry Laboratory if there are any questions. ICa Whole Blood 1.21 1.15 - 1.33 mmol/L [facility] Comment: Note: ??Total bilirubin higher than 20 mg/dL may lead to falsely low ionized calcium. CL Whole Blood 110(H) 98 - 107 mmol/L [facility] Gluc Whole Bld 132 65 - 199 mg/dL [facility] Comment:Diabetes: >=200 mg/d L plus symptoms. Lactate WB 1.1 0.5 - 2.2 mmol/L [facility] FIO2 Art 40 % [facility] PF Ratio Art 175 [facility] Temp Art 37.8 Celsius [facility] Blood specimen (specimen) 07/21/2017 12:21 AM EDT 07/21/2017 12:21 AM EDT Sriram Contreras MD POINT OF CARE TEST ORDERABLES Performing Organization Address [facility]/State/ZIP Co de Phone Number [facility] [place] [address] * POCT Glucose (07/21/2017 12:00 AM EDT) Glucose, POC 119 65 - 199 mg/dL [facility] Comment: Supplemental ranges: <140 mg/dL before meals <180 mg/dL all other times of the day Blood specimen (specimen) 07/21/2017 07/21/2017 Sriram Contreras MD POINT OF CARE TEST ORDERABLES Performing Organization Address [facility] Co de Phone Number [facility] [place] [address] * Potassium (07/20/2017 9:50 PM EDT) Potassium 4.1 3.5 - 5.0 mmol/L [facility] Comment: Please note: ??Patients [...] ORDERABL ES Performing Organization Address [facility] Co de Phone Number [facility] [place] [address] * EKG 12 Lead (07/20/2017 8:40 PM EDT) [facility] Ventricular rate 77 BPM MUSE SYSTEM Atrial Rate 394 BPM MUSE SYSTEM QRS Duration 86 ms MUSE SYSTEM Q-T Interval 396 ms MUSE SYSTEM QTC Calculated (Bezet) 448 ms MUSE SYSTEM Calculated R [place] 73 degrees MUSE SYSTEM Calculated T [place] 127 degrees MUSE SYSTEM INTERPRETATION Atrial fibrillation [...] Aguero APRN ECG ORDERABLES Performing Organization Address [facility] de Phone Number MUSE SYSTEM * POCT Glucose (07/20/2017 7:28 PM EDT) [facility] Glucose, POC 126 65 - 199 mg/dL [facility] Comment: Supplemental ranges: <140 mg/dL before meals <180 mg/dL all other times of the day Blood specimen (specimen) 07/20/2017 7:28 PM EDT 07/20/2017 7:28 PM EDT Sriram Contreras MD POINT OF CARE TEST ORDERABLES Performing Organization Address [facility] Co de Phone Number [facility] [place] [address] * (ABNORMAL) Differential, Automated (07/20/2017 5:15 PM EDT) [facility] Neutrophil % 79.7 % [facility] Neutrophil Absolute 8.01(H) 1.70 - 6.10 x10(3)/mc L [facility] Lymph % 10.4 % [facility] Lymphocytes Abs 1.0 0.9 - 3.2 x10(3)/ L [facility] Monocyte % 8.0 % [facility] Monocyte Abs 0.8 0.3 - 0.9 x10(3)/[facility] Eos % 0.7 % [facility] Eosinophils Abs 0.1 0.0 - 0.4 x10(3)/[facility] Basophil % 0.2 % [facility] Baso Absolute 0.0 0.0 - 0.1 x10(3)/[facility] Immature Gran % 1.00 % [facility] Comment: Immature granulocytes(IG's)percentage and absolute count will include metamyelocytes, myelocytes, and promyelocytes. Blood smears from CBCs yielding IG's will be scanned manually for concordance. If this scan disagrees with the automated IG or if promyelocytes are noted, a manual differential will be performed. Immature Gran Absolute 0.10(H) 0.00 - 0.04 x10(3)/[facility] Blood specimen (specimen) 07/20/2017 5:15 PM EDT 07/20/2017 5:26 PM EDT Narrative Resulting Agency Comment Spec In Lab Sriram Contreras MD HEMATOLOGY ORDERAB LES Performing Organization Address City/State/[facility] Co de Phone Number [facility] [place] [address] * (ABNORMAL) Hemogram (07/20/2017 5:15 PM EDT) White Blood Cell 10.0(H) 4.0 - 9.5 x10(3)/[facility] Red Blood Cell 4.28(L) 4.58 - 5.54 x10(6)/[facility] Hemoglobin 13.3(L) 13.7 - 16.5 gm/dL [facility] Hematocrit 39.9(L) 40.5 - 48.5 % [facility] Mean Cell Volume 93.2(H) 82.9 - 93.1 fL [facility] Mean Cell Hemoglobin 31.1 27.5 - 32.1 pg [facility] Mean Cell Hemoglobin Concentration 33.3 32.0 - 35.7 gm/dL [facility] Platelet 163 145 - 357 x10(3)/mc L [facility] RDW Standard Deviation 47.7(H) 36.0 - 45.0 fL [facility] RDW coefficient of variation 14.1(H) 11.4 - 13.8 % [facility] Mean Platelet Volume 10.1 7.6 - 12.9 fL [facility] NRBC% auto 0.0 % [facility] NRBC Absolute 0.000 0.000 - 0.000 x10(3)/mc L [facility] Blood specimen (specimen) 07/20/2017 5:15 PM EDT 07/20/2017 5:26 PM EDT Narrative Resulting Agency Comment Spec In Lab Sriram Contreras MD HEMATOLOGY ORDERAB LES Performing Organization Address City/[facility]/ZIP Co de Phone Number [facility] [place] [address] * APTT (07/20/2017 5:15 PM EDT) [facility] Partial Thromboplastin Time 28 25 - 35 sec [facility] Comment: The recommended therapeutic range for full dose, unfractionated heparin at [facility] is 80 ? 114 seconds. The use of the anti-Xa (heparin) level rather than the PTT is recommended for monitoring anticoagulation intensity in critically ill patients receiving unfractionated heparin by continuous IV infusion. Blood specimen (specimen) 07/20/2017 5:15 PM EDT 07/20/2017 5:26 PM EDT Narrative Resulting Agency Comment Spec In Lab Sriram Contreras MD HEMATOLOGY ORDERAB LES [facility] [place] [address] * Magnesium (07/20/2017 4:50 PM EDT) Magnesium 1.00 0.69 - 1.07 mmol/L [facility] Blood specimen (specimen) 07/20/2017 4:50 PM EDT 07/20/2017 5:10 PM EDT Narrative Resulting Agency Comment Spec In Lab Sylvia Vaughn MD CHEMISTRY ORDERABLES [facility] [place] [address] * (ABNORMAL) Basic Metabolic Panel (non-fasting) (07/20/2017 4:50 PM EDT) Glucose 143 65 - 199 mg/dL [facility] Comment:Diabetes: >=200 mg/d L plus symptoms Blood Urea Nitrogen 23(H) 10 - 20 mg/dL [facility] Creatinine 0.85 0.80 - 1.50 mg/dL [facility] Comment: Please note that the pediatric reference intervals supplied above were not validated at [facility]. Results from pediatric patients should be interpreted in conjunction to the patient's age, height and muscle mass. Sodium 146(H) 135 - 145 mmol/L [facility] Potassium 3.9 3.5 - 5.0 mmol/L [facility] Comment: Please note: ??Patients with WBC >100,000 may have falsely elevated Potassium levels. ??For accurate Potassium quantification in these patients send serum separator tube (gold top) for subsequent determinations. ??Contact the Clinical Chemistry Laboratory if there are any questions. Chloride 110(H) 98 - 107 mmol/L [facility] Carbon Dioxide 25 22 - 31 mmol/L [facility] Anion Gap 11 5 - 15 mmol/L [facility] Calcium 8.5 8.5 - 10.5 mg/dL [facility] Est Glomerular Filtration Rate >60 >=60 [facility] Comment: This estimated GFR [...] the following links into your internet browser. [email or web address] Blood specimen (specimen) 07/20/2017 4:50 PM EDT 07/20/2017 5:10 PM EDT Narrative Resulting Agency Comment Spec In Lab Sylvia Vaughn MD CHEMISTRY ORDERABLES Performing Organization Address [facility] Co de Phone Number [facility] [place] [address] * POCT Glucose (07/20/2017 3:41 PM EDT) Glucose, POC 138 65 - 199 mg/dL [facility] Comment: Supplemental ranges: <140 mg/dL before meals <180 mg/dL all other times of the day Blood specimen (specimen) 07/20/2017 3:41 PM EDT 07/20/2017 3:41 PM EDT Sriram Contreras MD POINT OF CARE TEST ORDERABLES Performing Organization Address [facility] Co de Phone Number [facility] [place] [address] * CTA Chest for Pulmonary Embolus w [...] suggestive of normal upper respiratory yung (A) [facility] Gram Stain Many White Blood Cells seen Few squamous epithelial cells seen Many Gram Negative Rods seen Many mixed bacterial morphotypes suggestive of normal upper respiratory yung (A) [facility] Organism Enterobacter aerogenes(A) [facility] Organism Gram Negative Rods(A) [facility] Specimen from trachea obtained [...] - GEN ERAL ORDERABLES Performing Organization Address City/[facility] Co de Phone Number [facility] [place] [address] * POCT Glucose (07/20/2017 11:45 AM EDT) Glucose, POC 125 65 - 199 mg/dL [facility] Comment: Supplemental ranges: <140 mg/dL before meals <180 mg/dL all other times of the day Blood specimen (specimen) 07/20/2017 11:45 AM EDT 07/20/2017 11:45 AM EDT Sriram Contreras MD POINT OF CARE TEST ORDERABLES Performing Organization Address [facility] Co de Phone Number [facility] [place] [address] * (ABNORMAL) BLOOD GAS 2 ARTERIAL (07/20/2017 11:43 AM EDT) pH, Arterial 7.45 7.35 - 7.45 [facility] PCO2, Arterial 35 35 - 45 mmHg [facility] PO2, Arterial 57(L) 85 - 104 mmHg [facility] Bicarbonate, Arterial 23.9 20.0 - 26.0 mmol/L [facility] Base Excess, Arterial 0.1 -3.0 - 3.0 mmol/L [facility] Hgb Blood Gas 14.6 13.7 - 16.5 gm/dL [facility] Oxyhemoglobin, Arterial 89.5(L) 94.0 - 97.0 % [facility] Carboxyhemoglob in, Arterial 0.0 % [facility] Comment: Nonsmokers: 0.5-1.5% COHB Smokers: Variable, but usually less than 10% Toxic: 20-30% COHB Lethal: Greater than 60% COHB Methemoglobin, Arterial 0.5 <=1.5 % [facility] Na Whole Blood 145 135 - 145 mmol/L [facility] K Whole Blood 3.9 3.5 - 5.0 mmol/L [facility] Comment: Please note: Patients with WBC >100,000 may have falsely elevated Potassium levels. Contact the Clinical Chemistry Laboratory if there are any questions. ICa Whole Blood 1.23 1.15 - 1.33 mmol/L [facility] Comment: Note: ??Total bilirubin higher than 20 mg/dL may lead to falsely low ionized calcium. CL Whole Blood 110(H) 98 - 107 mmol/L [facility] Gluc Whole Bld 136 65 - 199 mg/dL [facility] Comment:Diabetes: >=200 mg/d L plus symptoms. Lactate WB 1.3 0.5 - 2.2 mmol/L [facility] FIO2 Art 35 % [facility] PF Ratio Art 163 [facility] Temp Art 37.6 Celsius [facility] Blood specimen (specimen) 07/20/2017 11:43 AM EDT 07/20/2017 11:43 AM EDT Sriram Contreras MD POINT OF CARE TEST ORDERABLES [facility] [place] [address] * Potassium (07/20/2017 10:15 AM EDT) Potassium 4.1 3.5 - 5.0 mmol/L [facility] Comment: Please note: ??Patients [...] Lab Sriram Contreras MD CHEMISTRY ORDERABL ES [facility] [place] [address] * XR Chest PA or AP 1 [...] Betancur MD - 07/20/2017 7:51 AM EDT AtcHedy domingo DO ? 07/19/2017 ??5:56 PM Intubation Procedure [...] Glucose, POC 134 65 - 199 mg/dL [facility] Comment: Supplemental ranges: <140 mg/dL before meals <180 mg/dL all other times of the day Blood specimen (specimen) 07/20/2017 7:29 AM EDT 07/20/2017 7:29 AM EDT Sriram Contreras MD POINT OF CARE TEST ORDERABLES Performing Organization Address [facility] Co de Phone Number [facility] [place] [address] * Potassium (07/20/2017 7:28 AM EDT) Pathologist [facility] Potassium 4.0 3.5 - 5.0 mmol/L [facility] Comment: Please note: ??Patients [...] MD CHEMISTRY ORDERABL ES Performing Organization Address [facility] de Phone Number [facility] [place] [address] * (ABNORMAL) Differential, Automated (07/20/2017 3:15 AM EDT) Neutrophil % 83.6 % [facility] Neutrophil Absolute 8.93(H) 1.70 - 6.10 x10(3)/mc L [facility] Lymph % 9.1 % [facility] Lymphocytes Abs 1.0 0.9 - 3.2 x10(3)/mc L [facility] Monocyte % 6.3 % [facility] Monocyte Abs 0.7 0.3 - 0.9 x10(3)/mc L [facility] Eos % 0.1 % [facility] Eosinophils Abs 0.0 0.0 - 0.4 x10(3)/mc L [facility] Basophil % 0.2 % [facility] Baso Absolute 0.0 0.0 - 0.1 x10(3)/ L [facility] Immature Gran % 0.70 % [facility] Comment: Immature granulocytes(IG's)percentage and absolute count will include metamyelocytes, myelocytes, and promyelocytes. Blood smears from CBCs yielding IG's will be scanned manually for concordance. If this scan disagrees with the automated IG or if promyelocytes are noted, a manual differential will be performed. Immature Gran Absolute 0.07(H) 0.00 - 0.04 x10(3)/[facility] Blood specimen (specimen) 07/20/2017 3:15 AM EDT 07/20/2017 3:58 AM EDT Narrative Resulting Agency Comment Spec In Lab Sriram Contreras MD HEMATOLOGY ORDERAB LES Performing Organization Address City/State/[facility] Co de Phone Number [facility] [place] [address] * (ABNORMAL) Hemogram (07/20/2017 3:15 AM EDT) White Blood Cell 10.7(H) 4.0 - 9.5 x10(3)/[facility] Red Blood Cell 4.40(L) 4.58 - 5.54 x10(6)/ L [facility] Hemoglobin 13.7 13.7 - 16.5 gm/dL [facility] Hematocrit 39.6(L) 40.5 - 48.5 % [facility] Mean Cell Volume 90.0 82.9 - 93.1 fL [facility] Mean Cell Hemoglobin 31.1 27.5 - 32.1 pg [facility] Mean Cell Hemoglobin Concentration 34.6 32.0 - 35.7 gm/dL [facility] Platelet 186 145 - 357 x10(3)/ L [facility] RDW Standard Deviation 45.8(H) 36.0 - 45.0 fL [facility] RDW coefficient of variation 13.9(H) 11.4 - 13.8 % [facility] Mean Platelet Volume 9.9 7.6 - 12.9 fL [facility] NRBC% auto 0.0 % [facility] NRBC Absolute 0.000 0.000 - 0.000 x10(3)/mc L [facility] Blood specimen (specimen) 07/20/2017 3:15 AM EDT 07/20/2017 3:58 AM EDT Narrative Resulting Agency Comment Spec In Lab Sriram Contreras MD HEMATOLOGY ORDERAB LES [facility] [place] [address] * (ABNORMAL) Basic Metabolic Panel (non-fasting) (07/20/2017 3:15 AM EDT) Glucose 126 65 - 199 mg/dL [facility] Comment:Diabetes: >=200 mg/d L plus symptoms Blood Urea Nitrogen 23(H) 10 - 20 mg/dL [facility] Creatinine 0.97 0.80 - 1.50 mg/dL [facility] Comment: Please note that the pediatric reference intervals supplied above were not validated at [facility]. Results from pediatric patients should be interpreted in conjunction to the patient's age, height and muscle mass. Sodium 143 135 - 145 mmol/L [facility] Potassium 3.9 3.5 - 5.0 mmol/L [facility] Comment: Please note: ??Patients with WBC >100,000 may have falsely elevated Potassium levels. ??For accurate Potassium quantification in these patients send serum separator tube (gold top) for subsequent determinations. ??Contact the Clinical Chemistry Laboratory if there are any questions. Chloride 106 98 - 107 mmol/L [facility] Carbon Dioxide 23 22 - 31 mmol/L [facility] Anion Gap 14 5 - 15 mmol/L [facility] Calcium 8.5 8.5 - 10.5 mg/dL [facility] Est Glomerular Filtration Rate >60 >=60 [facility] Comment: This estimated GFR [...] the following links into your internet browser. [email or web address] Blood specimen (specimen) 07/20/2017 3:15 AM EDT 07/20/2017 3:58 AM EDT Narrative Resulting Agency Comment Spec In Lab Sriram Contreras MD CHEMISTRY ORDERABL ES Performing Organization Address City/[facility] Co de Phone Number [facility] [place] [address] * POCT Glucose (07/20/2017 3:13 AM EDT) Glucose, POC 114 65 - 199 mg/dL [facility] Comment: Supplemental ranges: <140 mg/dL before meals <180 mg/dL all other times of the day Blood specimen (specimen) 07/20/2017 3:13 AM EDT 07/20/2017 3:13 AM EDT Sriram Contreras MD POINT OF CARE TEST ORDERABLES Performing Organization Address [facility]/ZIP Co de Phone Number [facility] [place] [address] * (ABNORMAL) BLOOD GAS 2 ARTERIAL (07/19/2017 11:36 PM EDT) pH, Arterial 7.51(H) 7.35 - 7.45 [facility] PCO2, Arterial 29(L) 35 - 45 mmHg [facility] PO2, Arterial 77(L) 85 - 104 mmHg [facility] Bicarbonate, Arterial 22.2 20.0 - 26.0 mmol/L [facility] Base Excess, Arterial -0.8 -3.0 - 3.0 mmol/L [facility] Hgb Blood Gas 14.7 13.7 - 16.5 gm/dL [facility] Oxyhemoglobin, Arterial 94.7 94.0 - 97.0 % [facility] Carboxyhemoglob in, Arterial 0.3 % [facility] Comment: Nonsmokers: 0.5-1.5% COHB Smokers: Variable, but usually less than 10% Toxic: 20-30% COHB Lethal: Greater than 60% COHB Methemoglobin, Arterial 0.7 <=1.5 % [facility] Na Whole Blood 142 135 - 145 mmol/L [facility] K Whole Blood 3.8 3.5 - 5.0 mmol/L [facility] Comment: Please note: Patients with WBC >100,000 may have falsely elevated Potassium levels. Contact the Clinical Chemistry Laboratory if there are any questions. ICa Whole Blood 1.19 1.15 - 1.33 mmol/L [facility] Comment: Note: ??Total bilirubin higher than 20 mg/dL may lead to falsely low ionized calcium. CL Whole Blood 109(H) 98 - 107 mmol/L [facility] Gluc Whole Bld 125 65 - 199 mg/dL [facility] Comment:Diabetes: >=200 mg/d L plus symptoms. Lactate WB 1.6 0.5 - 2.2 mmol/L [facility] FIO2 Art 50 % [facility] PF Ratio Art 154 [facility] Blood specimen (specimen) 07/19/2017 11:36 PM EDT 07/19/2017 11:36 PM EDT rSiram Contreras MD POINT OF CARE TEST ORDERABLES [facility] [place] [address] * POCT Glucose (07/19/2017 11:31 PM EDT) Glucose, POC 110 65 - 199 mg/dL [facility] Comment: Supplemental ranges: <140 mg/dL before meals <180 mg/dL all other times of the day Blood specimen (specimen) 07/19/2017 11:31 PM EDT 07/19/2017 11:31 PM EDT Sriram Contreras MD POINT OF CARE TEST ORDERABLES Performing Organization Address [facility] Co de Phone Number [facility] [place] [address] * Potassium (07/19/2017 11:30 PM EDT) Potassium 3.9 3.5 - 5.0 mmol/L [facility] Comment: Please note: ??Patients [...] MD CHEMISTRY ORDERABL ES Performing Organization Address City/[facility]/ZIP Co de Phone Number [facility] [place] [address] * POCT Glucose (07/19/2017 7:45 PM EDT) Glucose, POC 100 65 - 199 mg/dL [facility] Comment: Supplemental ranges: <140 mg/dL before meals <180 mg/dL all other times of the day Blood specimen (specimen) 07/19/2017 7:45 PM EDT 07/19/2017 7:45 PM EDT Sriram Contreras MD POINT OF CARE TEST ORDERABLES Performing Organization Address [facility] Co de Phone Number [facility] [place] [address] * Blood culture (07/19/2017 7:00 PM EDT) Blood Culture No growth at 5 days. [facility] Blood specimen (specimen) STRUCTURE OF LEFT WRIST REGION / Unknown 07/19/2017 7:00 PM EDT 07/19/2017 7:50 PM EDT Narrative Resulting Agency Comment Spec In Lab Sriram Contreras MD MICROBIOLOGY - BLO OD ORDERABLES Performing Organization Address [facility] [place] [address] * Blood culture (07/19/2017 6:50 PM EDT) Blood Culture No growth at 5 days. [facility] Blood specimen (specimen) STRUCTURE OF RIGHT WRIST REGION / Unknown 07/19/2017 6:50 PM EDT 07/19/2017 7:51 PM EDT Narrative Resulting Agency Comment Spec In Lab Sriram Contreras MD MICROBIOLOGY - BLO OD ORDERABLES Performing Organization Address [facility] [place] [address] * XR Chest PA or AP 1 [...] EDT) pH, Arterial 7.49(H) 7.35 - 7.45 [facility] PCO2, Arterial 32(L) 35 - 45 mmHg [facility] PO2, Arterial 66(L) 85 - 104 mmHg [facility] Bicarbonate, Arterial 23.2 20.0 - 26.0 mmol/L [facility] Base Excess, Arterial -0.2 -3.0 - 3.0 mmol/L [facility] Hgb Blood Gas 15.5 13.7 - 16.5 gm/dL [facility] Oxyhemoglobin, Arterial 93.1(L) 94.0 - 97.0 % [facility] Carboxyhemoglob in, Arterial 0.4 % [facility] Comment: Nonsmokers: 0.5-1.5% COHB Smokers: Variable, but usually less than 10% Toxic: 20-30% COHB Lethal: Greater than 60% COHB Methemoglobin, Arterial 0.6 <=1.5 % [facility] Na Whole Blood 158(H) 135 - 145 mmol/L [facility] K Whole Blood 4.0 3.5 - 5.0 mmol/L [facility] Comment: Please note: Patients with WBC >100,000 may have falsely elevated Potassium levels. Contact the Clinical Chemistry Laboratory if there are any questions. ICa Whole Blood 1.14(L) 1.15 - 1.33 mmol/L [facility] Comment: Note: ??Total bilirubin higher than 20 mg/dL may lead to falsely low ionized calcium. CL Whole Blood 120(H) 98 - 107 mmol/L [facility] Gluc Whole Bld 116 65 - 199 mg/dL [facility] Comment:Diabetes: >=200 mg/d L plus symptoms. Lactate WB 1.6 0.5 - 2.2 mmol/L [facility] FIO2 Art 100 % [facility] PF Ratio Art 66 [facility] Blood specimen (specimen) 07/19/2017 5:12 PM EDT 07/19/2017 5:12 PM EDT Sriram Contreras MD POINT OF CARE TEST ORDERABLES Performing Organization Address [facility] Co de Phone Number [facility] [place] [address] * EKG 12 Lead (07/19/2017 4:55 PM EDT) Ventricular rate 85 BPM MUSE SYSTEM Atrial Rate 326 BPM MUSE SYSTEM QRS Duration 92 ms MUSE SYSTEM Q-T Interval 388 ms MUSE SYSTEM QTC Calculated (Bezet) 461 ms MUSE SYSTEM Calculated R [place] 65 degrees MUSE SYSTEM Calculated T [place] 4 degrees MUSE SYSTEM INTERPRETATION Atrial fibrillation [...] Contreras MD ECG ORDERABLES Performing Organization Address City/[facility]/ZIP Co de Phone Number MUSE SYSTEM * Phosphorus (07/19/2017 4:50 PM EDT) Phosphorus 3.0 2.5 - 4.5 mg/dL [facility] Blood specimen (specimen) 07/19/2017 4:50 PM EDT 07/19/2017 5:05 PM EDT Narrative Resulting Agency Comment Spec In Lab Sriram Contreras MD CHEMISTRY ORDERABL ES [facility] [place] [address] * (ABNORMAL) Basic Metabolic Panel (non-fasting) (07/19/2017 4:50 PM EDT) Glucose 118 65 - 199 mg/dL [facility] Comment:Diabetes: >=200 mg/d L plus symptoms Blood Urea Nitrogen 19 10 - 20 mg/dL [facility] Creatinine 0.79(L) 0.80 - 1.50 mg/dL [facility] Comment: Please note that the pediatric reference intervals supplied above were not validated at [facility]. Results from pediatric patients should be interpreted in conjunction to the patient's age, height and muscle mass. Sodium 144 135 - 145 mmol/L [facility] Potassium 3.5 3.5 - 5.0 mmol/L [facility] Comment: Please note: ??Patients with WBC >100,000 may have falsely elevated Potassium levels. ??For accurate Potassium quantification in these patients send serum separator tube (gold top) for subsequent determinations. ??Contact the Clinical Chemistry Laboratory if there are any questions. Chloride 106 98 - 107 mmol/L [facility] Carbon Dioxide 23 22 - 31 mmol/L [facility] Anion Gap 15 5 - 15 mmol/L [facility] Calcium 8.7 8.5 - 10.5 mg/dL [facility] Est Glomerular Filtration Rate >60 >=60 [facility] Comment: This estimated GFR [...] the following links into your internet browser. [email or web address] Blood specimen (specimen) 07/19/2017 4:50 PM EDT 07/19/2017 5:05 PM EDT Narrative Resulting Agency Comment Spec In Lab Sriram Contreras MD CHEMISTRY ORDERABL ES Performing Organization Address [facility] de Phone Number [facility] [place] [address] * Magnesium (07/19/2017 4:50 PM EDT) Magnesium 0.86 0.69 - 1.07 mmol/L [facility] Blood specimen (specimen) 07/19/2017 4:50 PM EDT 07/19/2017 5:05 PM EDT Narrative Resulting Agency Comment Spec In Lab Sriram Contreras MD CHEMISTRY ORDERABL ES Performing Organization Address [facility] Phone Number [facility] [place] [address] * POCT Glucose (07/19/2017 3:37 PM EDT) Glucose, POC 101 65 - 199 mg/dL [facility] Comment: Supplemental ranges: <140 mg/dL before meals <180 mg/dL all other times of the day Blood specimen (specimen) 07/19/2017 3:37 PM EDT 07/19/2017 3:37 PM EDT Sriram Contreras MD POINT OF CARE TEST ORDERABLES Performing Organization Address [facility] Co de Phone Number [facility] [place] [address] * XR Chest PA or AP 1 [...] Glucose, POC 100 65 - 199 mg/dL [facility] Comment: Supplemental ranges: <140 mg/dL before meals <180 mg/dL all other times of the day Blood specimen (specimen) 07/19/2017 12:36 PM EDT 07/19/2017 12:36 PM EDT Sriram Contreras MD POINT OF CARE TEST ORDERABLES [facility] [place] [address] * Potassium (07/19/2017 12:30 PM EDT) Potassium 3.7 3.5 - 5.0 mmol/L [facility] Comment: Please note: ??Patients [...] Lab Sriram Contreras MD CHEMISTRY ORDERABL ES [facility] [place] [address] * (ABNORMAL) BLOOD GAS 2 ARTERIAL (07/19/2017 12:17 PM EDT) pH, Arterial 7.50(H) 7.35 - 7.45 [facility] PCO2, Arterial 32(L) 35 - 45 mmHg [facility] PO2, Arterial 60(L) 85 - 104 mmHg [facility] Bicarbonate, Arterial 23.7 20.0 - 26.0 mmol/L [facility] Base Excess, Arterial 0.5 -3.0 - 3.0 mmol/L [facility] Hgb Blood Gas 14.8 13.7 - 16.5 gm/dL [facility] Oxyhemoglobin, Arterial 91.1(L) 94.0 - 97.0 % [facility] Carboxyhemoglob in, Arterial 0.1 % [facility] Comment: Nonsmokers: 0.5-1.5% COHB Smokers: Variable, but usually less than 10% Toxic: 20-30% COHB Lethal: Greater than 60% COHB Methemoglobin, Arterial 0.6 <=1.5 % [facility] Na Whole Blood 145 135 - 145 mmol/L [facility] K Whole Blood 3.7 3.5 - 5.0 mmol/L [facility] Comment: Please note: Patients with WBC >100,000 may have falsely elevated Potassium levels. Contact the Clinical Chemistry Laboratory if there are any questions. ICa Whole Blood 1.16 1.15 - 1.33 mmol/L [facility] Comment: Note: ??Total bilirubin higher than 20 mg/dL may lead to falsely low ionized calcium. CL Whole Blood 109(H) 98 - 107 mmol/L [facility] Gluc Whole Bld 115 65 - 199 mg/dL [facility] Comment:Diabetes: >=200 mg/d L plus symptoms. Lactate WB 1.3 0.5 - 2.2 mmol/L [facility] FIO2 Art 45 % [facility] PF Ratio Art 133 [facility] Blood specimen (specimen) 07/19/2017 12:17 PM EDT 07/19/2017 12:17 PM EDT Sriram Contreras MD POINT OF CARE TEST ORDERABLES Performing Organization Address [facility] Co de Phone Number [facility] [place] [address] * Potassium (07/19/2017 8:50 AM EDT) Potassium 3.8 3.5 - 5.0 mmol/L [facility] Comment: Please note: ??Patients [...] MD CHEMISTRY ORDERABL ES Performing Organization Address [facility] Co de Phone Number [facility] [place] [address] * Folate, serum (07/19/2017 8:50 AM EDT) Folate 16.6 4.8 - 24.2 ng/mL [facility] Blood specimen (specimen) 07/19/2017 8:50 AM EDT 07/19/2017 9:11 AM EDT Narrative Resulting Agency Comment Spec In Lab Sriram Contreras MD CHEMISTRY ORDERABL ES Performing Organization Address City/[facility]/ZIP Co de Phone Number [facility] [place] [address] * Vitamin B12 (07/19/2017 8:50 AM EDT) Vitamin B12 468 207 - 974 pg/mL [facility] Blood specimen (specimen) 07/19/2017 8:50 AM EDT 07/19/2017 9:11 AM EDT Narrative Resulting Agency Comment Spec In Lab Sriram Contreras MD CHEMISTRY ORDERABL ES Performing Organization Address [facility] Co de Phone Number [facility] [place] [address] * (ABNORMAL) TSH (07/19/2017 8:50 AM EDT) Thyroid Stimulating Hormone 6.80(H) 0.27 - 4.20 mlU/ML [facility] Blood specimen (specimen) 07/19/2017 8:50 AM EDT 07/19/2017 9:11 AM EDT Narrative Resulting Agency Comment Spec In Lab Sriram Contreras MD CHEMISTRY ORDERABL ES Performing Organization Address City/[facility] Co de Phone Number [facility] [place] [address] * Urine Hold (07/19/2017 8:07 AM EDT) Hold, Urine Sample in lab. [facility] Urine specimen (specimen) Urine / Unknown 07/19/2017 8:07 AM EDT 07/19/2017 8:35 AM EDT Sriram Contreras MD URINE ORDERABLES [facility] [place] [address] * (ABNORMAL) Urinalysis with reflex Culture (07/19/2017 8:07 AM EDT) Glucose, Urine Dipstick Negative Negative mg/dL [facility] Protein, Urine Dipstick 30(A) Negative mg/dL [facility] Bilirubin, Urine Dipstick Negative Negative mg/dL [facility] Comment: Clinical correlation required for positive Urine Bilirubin results as false positive may occur with some drugs and drug related products. If a false positive is suspected a serum total bilirubin should be considered if clinically indicated. Urobilinogen, Urine Dipstick >=4.0(A) Normal mg/dL [facility] pH, Urn (dipstick) 7.0 5.0 - 8.0 [facility] Blood, Urine Dipstick Moderate(A) Negative mg/dL [facility] Ketone, Urine Dipstick Negative Negative mg/dL [facility] Nitrite, Urine Dipstick Negative Negative [facility] Leukocytes, Urine Dipstick Trace(A) Negative [facility] Appearance, Urine Dipstick Clear Clear [facility] Specific [place] Urine Automated 1.025 1.002 - 1.030 [facility] Color, Urine Dipstick Yellow Yellow [facility] RBC, Urine 161(H) 0 - 3 /HPF [facility] WBC, Urine 1 0 - 3 /HPF [facility] Reflex to Culture No [facility] Urine specimen obtained via indwelling urinary catheter (specimen) 07/19/2017 8:07 AM EDT 07/19/2017 8:34 AM EDT Narrative Resulting Agency Comment Spec In Lab Sriram Contreras MD URINE ORDERABLES Performing Organization Address City/[facility] Co de Phone Number [facility] [place] [address] * POCT Glucose (07/19/2017 7:42 AM EDT) Glucose, POC 99 65 - 199 mg/dL [facility] Comment: Supplemental ranges: <140 mg/dL before meals <180 mg/dL all other times of the day Blood specimen (specimen) 07/19/2017 7:42 AM EDT 07/19/2017 7:42 AM EDT Sriram Contreras MD POINT OF CARE TEST ORDERABLES Performing Organization Address [facility] Co de Phone Number [facility] [place] [address] * POCT Glucose (07/19/2017 4:11 AM EDT) Glucose, POC 93 65 - 199 mg/dL [facility] Comment: Supplemental ranges: <140 mg/dL before meals <180 mg/dL all other times of the day Blood specimen (specimen) 07/19/2017 4:11 AM EDT 07/19/2017 4:11 AM EDT Sriram Contreras MD POINT OF CARE TEST ORDERABLES Performing Organization Address City/[facility] Co de Phone Number [facility] [place] [address] * (ABNORMAL) Differential, Automated (07/19/2017 2:30 AM EDT) Neutrophil % 77.9 % [facility] Neutrophil Absolute 9.99(H) 1.70 - 6.10 x10(3)/mc L [facility] Lymph % 9.8 % [facility] Lymphocytes Abs 1.2 0.9 - 3.2 x10(3)/mc L [facility] Monocyte % 11.5 % [facility] Monocyte Abs 1.5(H) 0.3 - 0.9 x10(3)/[facility] Eos % 0.1 % [facility] Eosinophils Abs 0.0 0.0 - 0.4 x10(3)/[facility] Basophil % 0.2 % [facility] Baso Absolute 0.0 0.0 - 0.1 x10(3)/[facility] Immature Gran % 0.50 % [facility] Comment: Immature granulocytes(IG's)percentage and absolute count will include metamyelocytes, myelocytes, and promyelocytes. Blood smears from CBCs yielding IG's will be scanned manually for concordance. If this scan disagrees with the automated IG or if promyelocytes are noted, a manual differential will be performed. Immature Gran Absolute 0.07(H) 0.00 - 0.04 x10(3)/[facility] Blood specimen (specimen) 07/19/2017 2:30 AM EDT 07/19/2017 2:34 AM EDT Narrative Resulting Agency Comment Spec In Lab Sriram Contreras MD HEMATOLOGY ORDERAB LES [facility] [place] [address] * (ABNORMAL) Hemogram (07/19/2017 2:30 AM EDT) White Blood Cell 12.8(H) 4.0 - 9.5 x10(3)/[facility] Red Blood Cell 4.30(L) 4.58 - 5.54 x10(6)/[facility] Hemoglobin 13.5(L) 13.7 - 16.5 gm/dL [facility] Hematocrit 38.6(L) 40.5 - 48.5 % [facility] Mean Cell Volume 89.8 82.9 - 93.1 fL [facility] Mean Cell Hemoglobin 31.4 27.5 - 32.1 pg [facility] Mean Cell Hemoglobin Concentration 35.0 32.0 - 35.7 gm/dL [facility] Platelet 176 145 - 357 x10(3)/mc L [facility] RDW Standard Deviation 45.1(H) 36.0 - 45.0 fL [facility] RDW coefficient of variation 13.9(H) 11.4 - 13.8 % [facility] Mean Platelet Volume 9.8 7.6 - 12.9 fL [facility] NRBC% auto 0.0 % [facility] NRBC Absolute 0.000 0.000 - 0.000 x10(3)/mc L [facility] Blood specimen (specimen) 07/19/2017 2:30 AM EDT 07/19/2017 2:34 AM EDT Narrative Resulting Agency Comment Spec In Lab Sriram Contreras MD HEMATOLOGY ORDERAB LES [facility] [place] [id number] * (ABNORMAL) Basic Metabolic Panel (non-fasting) (07/19/2017 2:30 AM EDT) Glucose 102 65 - 199 mg/dL [facility] Comment:Diabetes: >=200 mg/d L plus symptoms Blood Urea Nitrogen 23(H) 10 - 20 mg/dL [facility] Creatinine 0.87 0.80 - 1.50 mg/dL [facility] Comment: Please note that the pediatric reference intervals supplied above were not validated at [facility]. Results from pediatric patients should be interpreted in conjunction to the patient's age, height and muscle mass. Sodium 144 135 - 145 mmol/L [facility] Potassium 3.4(L) 3.5 - 5.0 mmol/L [facility] Comment: Please note: ??Patients with WBC >100,000 may have falsely elevated Potassium levels. ??For accurate Potassium quantification in these patients send serum separator tube (gold top) for subsequent determinations. ??Contact the Clinical Chemistry Laboratory if there are any questions. Chloride 106 98 - 107 mmol/L [facility] Carbon Dioxide 23 22 - 31 mmol/L [facility] Anion Gap 15 5 - 15 mmol/L [facility] Calcium 8.5 8.5 - 10.5 mg/dL [facility] Est Glomerular Filtration Rate >60 >=60 [facility] Comment: This estimated GFR [...] the following links into your internet browser. [email or web address] Blood specimen (specimen) 07/19/2017 2:30 AM EDT 07/19/2017 2:34 AM EDT Narrative Resulting Agency Comment Spec In Lab Sriram Contreras MD CHEMISTRY ORDERABL ES Performing Organization Address [facility] Co de Phone Number [facility] [place] [address] * (ABNORMAL) Prealbumin (07/19/2017 2:30 AM EDT) Prealbumin 17(L) 20 - 40 mg/dL [facility] Comment: Prealbumin levels are generally lower in the pediatric population; adult concentrations are usually attained near puberty. Blood specimen (specimen) 07/19/2017 2:30 AM EDT 07/19/2017 2:34 AM EDT Narrative Resulting Agency Comment Spec In Lab Sriram Contreras MD CHEMISTRY ORDERABL ES Performing Organization Address City/[facility]/ZIP Co de Phone Number [facility] [place] [address] * (ABNORMAL) BLOOD GAS 2 ARTERIAL (07/18/2017 11:53 PM EDT) pH, Arterial 7.50(H) 7.35 - 7.45 [facility] PCO2, Arterial 32(L) 35 - 45 mmHg [facility] PO2, Arterial 61(L) 85 - 104 mmHg [facility] Bicarbonate, Arterial 24.5 20.0 - 26.0 mmol/L [facility] Base Excess, Arterial 1.3 -3.0 - 3.0 mmol/L [facility] Hgb Blood Gas 14.1 13.7 - 16.5 gm/dL [facility] Oxyhemoglobin, Arterial 90.9(L) 94.0 - 97.0 % [facility] Carboxyhemoglob in, Arterial 0.3 % [facility] Comment: Nonsmokers: 0.5-1.5% COHB Smokers: Variable, but usually less than 10% Toxic: 20-30% COHB Lethal: Greater than 60% COHB Methemoglobin, Arterial 0.7 <=1.5 % [facility] Na Whole Blood 144 135 - 145 mmol/L [facility] K Whole Blood 3.3(L) 3.5 - 5.0 mmol/L [facility] Comment: Please note: Patients with WBC >100,000 may have falsely elevated Potassium levels. Contact the Clinical Chemistry Laboratory if there are any questions. ICa Whole Blood 1.17 1.15 - 1.33 mmol/L [facility] Comment: Note: ??Total bilirubin higher than 20 mg/dL may lead to falsely low ionized calcium. CL Whole Blood 109(H) 98 - 107 mmol/L [facility] Gluc Whole Bld 104 65 - 199 mg/dL [facility] Comment:Diabetes: >=200 mg/d L plus symptoms. Lactate WB 1.3 0.5 - 2.2 mmol/L [facility] FIO2 Art 45 % [facility] PF Ratio Art 136 [facility] Blood specimen (specimen) 07/18/2017 11:53 PM EDT 07/18/2017 11:53 PM EDT Sriram Contreras MD POINT OF CARE TEST ORDERABLES [facility] [place] [address] * POCT Glucose (07/18/2017 11:49 PM EDT) Glucose, POC 102 65 - 199 mg/dL [facility] Comment: Supplemental ranges: <140 mg/dL before meals <180 mg/dL all other times of the day Blood specimen (specimen) 07/18/2017 11:49 PM EDT 07/18/2017 11:49 PM EDT Sriram Contreras MD POINT OF CARE TEST ORDERABLES Performing Organization Address City/[facility]/ZIP Co de Phone Number [facility] [place] [address] * POCT Glucose (07/18/2017 8:44 PM EDT) Glucose, POC 108 65 - 199 mg/dL [facility] Comment: Supplemental ranges: <140 mg/dL before meals <180 mg/dL all other times of the day Blood specimen (specimen) 07/18/2017 8:44 PM EDT 07/18/2017 8:44 PM EDT Sriram Contreras MD POINT OF CARE TEST ORDERABLES Performing Organization Address City/[facility]/ZIP Co de Phone Number [facility] [place] [address] * (ABNORMAL) BLOOD GAS 2 ARTERIAL (07/18/2017 5:22 PM EDT) pH, Arterial 7.54(H) 7.35 - 7.45 [facility] PCO2, Arterial 31(L) 35 - 45 mmHg [facility] PO2, Arterial 55(L) 85 - 104 mmHg [facility] Bicarbonate, Arterial 25.9 20.0 - 26.0 mmol/L [facility] Base Excess, Arterial 3.3(H) -3.0 - 3.0 mmol/L [facility] Hgb Blood Gas 14.2 13.7 - 16.5 gm/dL [facility] Oxyhemoglobin, Arterial 90.3(L) 94.0 - 97.0 % [facility] Carboxyhemoglob in, Arterial 0.3 % [facility] Comment: Nonsmokers: 0.5-1.5% COHB Smokers: Variable, but usually less than 10% Toxic: 20-30% COHB Lethal: Greater than 60% COHB Methemoglobin, Arterial 0.5 <=1.5 % [facility] Na Whole Blood 144 135 - 145 mmol/L [facility] K Whole Blood 3.3(L) 3.5 - 5.0 mmol/L [facility] Comment: Please note: Patients with WBC >100,000 may have falsely elevated Potassium levels. Contact the Clinical Chemistry Laboratory if there are any questions. ICa Whole Blood 1.18 1.15 - 1.33 mmol/L [facility] Comment: Note: ??Total bilirubin higher than 20 mg/dL may lead to falsely low ionized calcium. CL Whole Blood 108(H) 98 - 107 mmol/L [facility] Gluc Whole Bld 130 65 - 199 mg/dL [facility] Comment:Diabetes: >=200 mg/d L plus symptoms. Lactate WB 1.6 0.5 - 2.2 mmol/L [facility] FIO2 Art 40 % [facility] PF Ratio Art 138 [facility] Blood specimen (specimen) 07/18/2017 5:22 PM EDT 07/18/2017 5:22 PM EDT Sriram Contreras MD POINT OF CARE TEST ORDERABLES [facility] [place] [address] * POCT Glucose (07/18/2017 3:42 PM EDT) Glucose, POC 119 65 - 199 mg/dL [facility] Comment: Supplemental ranges: <140 mg/dL before meals <180 mg/dL all other times of the day Blood specimen (specimen) 07/18/2017 3:42 PM EDT 07/18/2017 3:42 PM EDT Sriram Contreras MD POINT OF CARE TEST ORDERABLES [facility] [place] [address] * POCT Glucose (07/18/2017 1:05 PM EDT) Glucose, POC 118 65 - 199 mg/dL [facility] Comment: Supplemental ranges: <140 mg/dL before meals <180 mg/dL all other times of the day Blood specimen (specimen) 07/18/2017 1:05 PM EDT 07/18/2017 1:05 PM EDT Sriram Contreras MD POINT OF CARE TEST ORDERABLES Performing Organization Address City/[facility]/ZIP Co de Phone Number [facility] [place] [address] * (ABNORMAL) BLOOD GAS 2 ARTERIAL (07/18/2017 11:47 AM EDT) pH, Arterial 7.51(H) 7.35 - 7.45 [facility] PCO2, Arterial 33(L) 35 - 45 mmHg [facility] PO2, Arterial 94 85 - 104 mmHg [facility] Bicarbonate, Arterial 25.1 20.0 - 26.0 mmol/L [facility] Base Excess, Arterial 2.0 -3.0 - 3.0 mmol/L [facility] Hgb Blood Gas 14.4 13.7 - 16.5 gm/dL [facility] Oxyhemoglobin, Arterial 96.1 94.0 - 97.0 % [facility] Carboxyhemoglob in, Arterial 0.3 % [facility] Comment: Nonsmokers: 0.5-1.5% COHB Smokers: Variable, but usually less than 10% Toxic: 20-30% COHB Lethal: Greater than 60% COHB Methemoglobin, Arterial 0.6 <=1.5 % [facility] Na Whole Blood 141 135 - 145 mmol/L [facility] K Whole Blood 3.6 3.5 - 5.0 mmol/L [facility] Comment: Please note: Patients with WBC >100,000 may have falsely elevated Potassium levels. Contact the Clinical Chemistry Laboratory if there are any questions. ICa Whole Blood 1.17 1.15 - 1.33 mmol/L [facility] Comment: Note: ??Total bilirubin higher than 20 mg/dL may lead to falsely low ionized calcium. CL Whole Blood 104 98 - 107 mmol/L [facility] Gluc Whole Bld 228(H) 65 - 199 mg/dL [facility] Comment:Diabetes: >=200 mg/d L plus symptoms. Lactate WB 1.7 0.5 - 2.2 mmol/L [facility] FIO2 Art 50 % [facility] PF Ratio Art 188 [facility] Blood specimen (specimen) 07/18/2017 11:47 AM EDT 07/18/2017 11:47 AM EDT Sriram Contreras MD POINT OF CARE TEST ORDERABLES [facility] [place] [address] * (ABNORMAL) BLOOD GAS 2 ARTERIAL (07/18/2017 7:56 AM EDT) pH, Arterial 7.50(H) 7.35 - 7.45 [facility] PCO2, Arterial 31(L) 35 - 45 mmHg [facility] PO2, Arterial 82(L) 85 - 104 mmHg [facility] Bicarbonate, Arterial 24.2 20.0 - 26.0 mmol/L [facility] Base Excess, Arterial 1.0 -3.0 - 3.0 mmol/L [facility] Hgb Blood Gas 13.4(L) 13.7 - 16.5 gm/dL [facility] Oxyhemoglobin, Arterial 95.3 94.0 - 97.0 % [facility] Carboxyhemoglob in, Arterial 0.3 % [facility] Comment: Nonsmokers: 0.5-1.5% COHB Smokers: Variable, but usually less than 10% Toxic: 20-30% COHB Lethal: Greater than 60% COHB Methemoglobin, Arterial 0.5 <=1.5 % [facility] Na Whole Blood 143 135 - 145 mmol/L [facility] K Whole Blood 3.7 3.5 - 5.0 mmol/L [facility] Comment: Please note: Patients with WBC >100,000 may have falsely elevated Potassium levels. Contact the Clinical Chemistry Laboratory if there are any questions. ICa Whole Blood 1.17 1.15 - 1.33 mmol/L [facility] Comment: Note: ??Total bilirubin higher than 20 mg/dL may lead to falsely low ionized calcium. CL Whole Blood 106 98 - 107 mmol/L [facility] Gluc Whole Bld 158 65 - 199 mg/dL [facility] Comment:Diabetes: >=200 mg/d L plus symptoms. Lactate WB 2.5(H) 0.5 - 2.2 mmol/L [facility] FIO2 Art 60 % [facility] PF Ratio Art 137 [facility] Blood specimen (specimen) 07/18/2017 7:56 AM EDT 07/18/2017 7:56 AM EDT Sriram Contreras MD POINT OF CARE TEST ORDERABLES [facility] [place] [address] * (ABNORMAL) BLOOD GAS 2 ARTERIAL (07/18/2017 3:55 AM EDT) pH, Arterial 7.51(H) 7.35 - 7.45 [facility] PCO2, Arterial 34(L) 35 - 45 mmHg [facility] PO2, Arterial 95 85 - 104 mmHg [facility] Bicarbonate, Arterial 26.4(H) 20.0 - 26.0 mmol/L [facility] Base Excess, Arterial 3.4(H) -3.0 - 3.0 mmol/L [facility] Hgb Blood Gas 14.2 13.7 - 16.5 gm/dL [facility] Oxyhemoglobin, Arterial 96.4 94.0 - 97.0 % [facility] Carboxyhemoglob in, Arterial 0.5 % [facility] Comment: Nonsmokers: 0.5-1.5% COHB Smokers: Variable, but usually less than 10% Toxic: 20-30% COHB Lethal: Greater than 60% COHB Methemoglobin, Arterial 0.6 <=1.5 % [facility] Na Whole Blood 142 135 - 145 mmol/L [facility] K Whole Blood 3.6 3.5 - 5.0 mmol/L [facility] Comment: Please note: Patients with WBC >100,000 may have falsely elevated Potassium levels. Contact the Clinical Chemistry Laboratory if there are any questions. ICa Whole Blood 1.17 1.15 - 1.33 mmol/L [facility] Comment: Note: ??Total bilirubin higher than 20 mg/dL may lead to falsely low ionized calcium. CL Whole Blood 105 98 - 107 mmol/L [facility] Gluc Whole Bld 178 65 - 199 mg/dL [facility] Comment:Diabetes: >=200 mg/d L plus symptoms. Lactate WB 3.0(H) 0.5 - 2.2 mmol/L [facility] FIO2 Art 70 % [facility] PF Ratio Art 136 [facility] Blood specimen (specimen) 07/18/2017 3:55 AM EDT 07/18/2017 3:55 AM EDT Sriram Contreras MD POINT OF CARE TEST ORDERABLES Performing Organization Address [facility] Co de Phone Number [facility] [place] [address] * (ABNORMAL) POCT Glucose (07/18/2017 3:42 AM EDT) [facility] Glucose, POC 205(H) 65 - 199 mg/dL [facility] Comment: Supplemental ranges: <140 mg/dL before meals <180 mg/dL all other times of the day Blood specimen (specimen) 07/18/2017 3:42 AM EDT 07/18/2017 3:42 AM EDT Sriram Contreras MD POINT OF CARE TEST ORDERABLES Performing Organization Address [facility] Co de Phone Number [facility] [place] [address] * (ABNORMAL) Magnesium (07/18/2017 2:20 AM EDT) [facility] Magnesium 1.09(H) 0.69 - 1.07 mmol/L [facility] Blood specimen (specimen) Venous Draw / Unknown 07/18/2017 2:20 AM EDT 07/18/2017 2:31 AM EDT Narrative Resulting Agency Comment Spec In Lab Sriram Contreras MD CHEMISTRY ORDERABL ES Performing Organization Address [facility] [place] [address] * (ABNORMAL) Differential, Automated (07/18/2017 2:20 AM EDT) [facility] Neutrophil % 86.8 % [facility] Neutrophil Absolute 9.28(H) 1.70 - 6.10 x10(3)/mc L [facility] Lymph % 5.8 % [facility] Lymphocytes Abs 0.6(L) 0.9 - 3.2 x10(3)/ L [facility] Monocyte % 6.5 % [facility] Monocyte Abs 0.7 0.3 - 0.9 x10(3)/[facility] Eos % 0.0 % [facility] Eosinophils Abs 0.0 0.0 - 0.4 x10(3)/[facility] Basophil % 0.2 % [facility] Baso Absolute 0.0 0.0 - 0.1 x10(3)/[facility] Immature Gran % 0.70 % [facility] Comment: Immature granulocytes(IG's)percentage and absolute count will include metamyelocytes, myelocytes, and promyelocytes. Blood smears from CBCs yielding IG's will be scanned manually for concordance. If this scan disagrees with the automated IG or if promyelocytes are noted, a manual differential will be performed. Immature Gran Absolute 0.08(H) 0.00 - 0.04 x10(3)/[facility] Blood specimen (specimen) 07/18/2017 2:20 AM EDT 07/18/2017 2:28 AM EDT Narrative Resulting Agency Comment Spec In Lab Sriram Contreras MD HEMATOLOGY ORDERAB LES [facility] [place] [address] * (ABNORMAL) Hemogram (07/18/2017 2:20 AM EDT) White Blood Cell 10.7(H) 4.0 - 9.5 x10(3)/[facility] Red Blood Cell 4.39(L) 4.58 - 5.54 x10(6)/[facility] Hemoglobin 13.6(L) 13.7 - 16.5 gm/dL [facility] Hematocrit 38.8(L) 40.5 - 48.5 % [facility] Mean Cell Volume 88.4 82.9 - 93.1 fL [facility] Mean Cell Hemoglobin 31.0 27.5 - 32.1 pg [facility] Mean Cell Hemoglobin Concentration 35.1 32.0 - 35.7 gm/dL [facility] Platelet 147 145 - 357 x10(3)/mc L [facility] RDW Standard Deviation 43.4 36.0 - 45.0 fL [facility] RDW coefficient of variation 13.3 11.4 - 13.8 % [facility] Mean Platelet Volume 10.9 7.6 - 12.9 [facility] NRBC% auto 0.0 % [facility] NRBC Absolute 0.000 0.000 - 0.000 x10(3)/mc L [facility] Blood specimen (specimen) 07/18/2017 2:20 AM EDT 07/18/2017 2:28 AM EDT Narrative Resulting Agency Comment Spec In Lab Sriram Contreras MD HEMATOLOGY ORDERAB LES [facility] [place] [address] * (ABNORMAL) Basic Metabolic Panel (non-fasting) (07/18/2017 2:20 AM EDT) Glucose 181 65 - 199 mg/dL [facility] Comment:Diabetes: >=200 mg/d L plus symptoms Blood Urea Nitrogen 22(H) 10 - 20 mg/dL [facility] Creatinine 0.74(L) 0.80 - 1.50 mg/dL [facility] Comment: Please note that the pediatric reference intervals supplied above were not validated at [facility]. Results from pediatric patients should be interpreted in conjunction to the patient's age, height and muscle mass. Sodium 145 135 - 145 mmol/L [facility] Potassium 3.7 3.5 - 5.0 mmol/L [facility] Comment: Please note: ??Patients with WBC >100,000 may have falsely elevated Potassium levels. ??For accurate Potassium quantification in these patients send serum separator tube (gold top) for subsequent determinations. ??Contact the Clinical Chemistry Laboratory if there are any questions. Chloride 105 98 - 107 mmol/L [facility] Carbon Dioxide 25 22 - 31 mmol/L [facility] Anion Gap 15 5 - 15 mmol/L [facility] Calcium 8.8 8.5 - 10.5 mg/dL [facility] Est Glomerular Filtration Rate >60 >=60 [facility] Comment: This estimated GFR [...] the following links into your internet browser. [email or web address] Blood specimen (specimen) 07/18/2017 2:20 AM EDT 07/18/2017 2:28 AM EDT Narrative Resulting Agency Comment Spec In Lab Sriram Contreras MD CHEMISTRY ORDERABL ES [facility] [place] [address] * (ABNORMAL) BLOOD GAS 2 ARTERIAL (07/17/2017 11:36 PM EDT) pH, Arterial 7.51(H) 7.35 - 7.45 [facility] PCO2, Arterial 32(L) 35 - 45 mmHg [facility] PO2, Arterial 60(L) 85 - 104 mmHg [facility] Bicarbonate, Arterial 25.0 20.0 - 26.0 mmol/L [facility] Base Excess, Arterial 2.0 -3.0 - 3.0 mmol/L [facility] Hgb Blood Gas 14.8 13.7 - 16.5 gm/dL [facility] Oxyhemoglobin, Arterial 92.1(L) 94.0 - 97.0 % [facility] Carboxyhemoglob in, Arterial 0.3 % [facility] Comment: Nonsmokers: 0.5-1.5% COHB Smokers: Variable, but usually less than 10% Toxic: 20-30% COHB Lethal: Greater than 60% COHB Methemoglobin, Arterial 0.5 <=1.5 % [facility] Na Whole Blood 143 135 - 145 mmol/L [facility] K Whole Blood 3.7 3.5 - 5.0 mmol/L [facility] Comment: Please note: Patients with WBC >100,000 may have falsely elevated Potassium levels. Contact the Clinical Chemistry Laboratory if there are any questions. ICa Whole Blood 1.16 1.15 - 1.33 mmol/L [facility] Comment: Note: ??Total bilirubin higher than 20 mg/dL may lead to falsely low ionized calcium. CL Whole Blood 104 98 - 107 mmol/L [facility] Gluc Whole Bld 202(H) 65 - 199 mg/dL [facility] Comment:Diabetes: >=200 mg/d L plus symptoms. Lactate WB 2.9(H) 0.5 - 2.2 mmol/L [facility] FIO2 Art 60 % [facility] PF Ratio Art 100 [facility] Blood specimen (specimen) 07/17/2017 11:36 PM EDT 07/17/2017 11:36 PM EDT Sriram Contreras MD POINT OF CARE TEST ORDERABLES [facility] [place] [address] * (ABNORMAL) POCT Glucose (07/17/2017 11:34 PM EDT) Pathologist [facility] [place] Glucose, POC 202(H) 65 - 199 mg/dL [facility] Comment: Supplemental ranges: <140 mg/dL before meals <180 mg/dL all other times of the day Blood specimen (specimen) 07/17/2017 11:34 PM EDT 07/17/2017 11:34 PM EDT Sriram Contreras MD POINT OF CARE TEST ORDERABLES Performing Organization Address [facility]/ZIP Co de Phone Number [facility] [place] [address] * Magnesium (07/17/2017 10:10 PM EDT) [facility] Magnesium 0.87 0.69 - 1.07 mmol/L [facility] Blood specimen (specimen) 07/17/2017 10:10 PM EDT 07/17/2017 10:18 PM EDT Narrative Resulting Agency Comment Spec In Lab Sriram Contreras MD CHEMISTRY ORDERABL ES Performing Organization Address [facility] Co de Phone Number [facility] [place] [address] * (ABNORMAL) BLOOD GAS 2 ARTERIAL (07/17/2017 7:51 PM EDT) Pathologist [facility] [place] pH, Arterial 7.49(H) 7.35 - 7.45 [facility] PCO2, Arterial 36 35 - 45 mmHg [facility] PO2, Arterial 67(L) 85 - 104 mmHg [facility] Bicarbonate, Arterial 26.8(H) 20.0 - 26.0 mmol/L [facility] Base Excess, Arterial 3.4(H) -3.0 - 3.0 mmol/L [facility] Hgb Blood Gas 14.3 13.7 - 16.5 gm/dL [facility] Oxyhemoglobin, Arterial 93.4(L) 94.0 - 97.0 % [facility] Carboxyhemoglob in, Arterial 0.3 % [facility] Comment: Nonsmokers: 0.5-1.5% COHB Smokers: Variable, but usually less than 10% Toxic: 20-30% COHB Lethal: Greater than 60% COHB Methemoglobin, Arterial 0.6 <=1.5 % [facility] Na Whole Blood 143 135 - 145 mmol/L [facility] K Whole Blood 3.7 3.5 - 5.0 mmol/L [facility] Comment: Please note: Patients with WBC >100,000 may have falsely elevated Potassium levels. Contact the Clinical Chemistry Laboratory if there are any questions. ICa Whole Blood 1.17 1.15 - 1.33 mmol/L [facility] Comment: Note: ??Total bilirubin higher than 20 mg/dL may lead to falsely low ionized calcium. CL Whole Blood 106 98 - 107 mmol/L [facility] Gluc Whole Bld 178 65 - 199 mg/dL [facility] Comment:Diabetes: >=200 mg/d L plus symptoms. Lactate WB 2.8(H) 0.5 - 2.2 mmol/L [facility] FIO2 Art 60 % [facility] PF Ratio Art 112 [facility] Blood specimen (specimen) 07/17/2017 7:51 PM EDT 07/17/2017 7:51 PM EDT Sriram Contreras MD POINT OF CARE TEST ORDERABLES [facility] [place] [address] * POCT Glucose (07/17/2017 7:50 PM EDT) Glucose, POC 153 65 - 199 mg/dL [facility] Comment: Supplemental ranges: <140 mg/dL before meals <180 mg/dL all other times of the day Blood specimen (specimen) 07/17/2017 7:50 PM EDT 07/17/2017 7:50 PM EDT Sriram Contreras MD POINT OF CARE TEST ORDERABLES [facility] [place] [address] * (ABNORMAL) BLOOD GAS 2 ARTERIAL (07/17/2017 3:20 PM EDT) pH, Arterial 7.51(H) 7.35 - 7.45 [facility] PCO2, Arterial 31(L) 35 - 45 mmHg [facility] PO2, Arterial 67(L) 85 - 104 mmHg [facility] Bicarbonate, Arterial 24.3 20.0 - 26.0 mmol/L [facility] Base Excess, Arterial 1.3 -3.0 - 3.0 mmol/L [facility] Hgb Blood Gas 14.1 13.7 - 16.5 gm/dL [facility] Oxyhemoglobin, Arterial 93.8(L) 94.0 - 97.0 % [facility] Carboxyhemoglob in, Arterial 0.3 % [facility] Comment: Nonsmokers: 0.5-1.5% COHB Smokers: Variable, but usually less than 10% Toxic: 20-30% COHB Lethal: Greater than 60% COHB Methemoglobin, Arterial 0.5 <=1.5 % [facility] Na Whole Blood 141 135 - 145 mmol/L [facility] K Whole Blood 3.7 3.5 - 5.0 mmol/L [facility] Comment: Please note: Patients with WBC >100,000 may have falsely elevated Potassium levels. Contact the Clinical Chemistry Laboratory if there are any questions. ICa Whole Blood 1.15(L) 1.15 - 1.33 mmol/L [facility] Comment: Note: ??Total bilirubin higher than 20 mg/dL may lead to falsely low ionized calcium. CL Whole Blood 105 98 - 107 mmol/L [facility] Gluc Whole Bld 204(H) 65 - 199 mg/dL [facility] Comment:Diabetes: >=200 mg/d L plus symptoms. Lactate WB 2.0 0.5 - 2.2 mmol/L [facility] FIO2 Art 50 % [facility] PF Ratio Art 134 [facility] Blood specimen (specimen) 07/17/2017 3:20 PM EDT 07/17/2017 3:20 PM EDT Sriram Contreras MD POINT OF CARE TEST ORDERABLES [facility] [place] [address] * (ABNORMAL) BLOOD GAS 2 ARTERIAL (07/17/2017 12:50 PM EDT) pH, Arterial 7.51(H) 7.35 - 7.45 [facility] PCO2, Arterial 30(L) 35 - 45 mmHg [facility] PO2, Arterial 52(L) 85 - 104 mmHg [facility] Bicarbonate, Arterial 23.7 20.0 - 26.0 mmol/L [facility] Base Excess, Arterial 0.8 -3.0 - 3.0 mmol/L [facility] Hgb Blood Gas 14.0 13.7 - 16.5 gm/dL [facility] Oxyhemoglobin, Arterial 89.4(L) 94.0 - 97.0 % [facility] Carboxyhemoglob in, Arterial 0.3 % [facility] Comment: Nonsmokers: 0.5-1.5% COHB Smokers: Variable, but usually less than 10% Toxic: 20-30% COHB Lethal: Greater than 60% COHB Methemoglobin, Arterial 0.5 <=1.5 % [facility] Na Whole Blood 140 135 - 145 mmol/L [facility] K Whole Blood 3.9 3.5 - 5.0 mmol/L [facility] Comment: Please note: Patients with WBC >100,000 may have falsely elevated Potassium levels. Contact the Clinical Chemistry Laboratory if there are any questions. ICa Whole Blood 1.18 1.15 - 1.33 mmol/L [facility] Comment: Note: ??Total bilirubin higher than 20 mg/dL may lead to falsely low ionized calcium. CL Whole Blood 106 98 - 107 mmol/L [facility] Gluc Whole Bld 195 65 - 199 mg/dL [facility] Comment:Diabetes: >=200 mg/d L plus symptoms. Lactate WB 2.3(H) 0.5 - 2.2 mmol/L [facility] FIO2 Art 50 % [facility] PF Ratio Art 104 [facility] Blood specimen (specimen) 07/17/2017 12:50 PM EDT 07/17/2017 12:50 PM EDT Sriram Contreras MD POINT OF CARE TEST ORDERABLES Performing Organization Address City/State/[facility] Co de Phone Number [facility] [place] [address] * XR Chest PA or AP 1 [...] EDT) pH, Arterial 7.48(H) 7.35 - 7.45 [facility] PCO2, Arterial 34(L) 35 - 45 mmHg [facility] PO2, Arterial 55(L) 85 - 104 mmHg [facility] Bicarbonate, Arterial 24.7 20.0 - 26.0 mmol/L [facility] Base Excess, Arterial 1.2 -3.0 - 3.0 mmol/L [facility] Hgb Blood Gas 14.1 13.7 - 16.5 gm/dL [facility] Oxyhemoglobin, Arterial 90.4(L) 94.0 - 97.0 % [facility] Carboxyhemoglob in, Arterial 0.1 % [facility] Comment: Nonsmokers: 0.5-1.5% COHB Smokers: Variable, but usually less than 10% Toxic: 20-30% COHB Lethal: Greater than 60% COHB Methemoglobin, Arterial 0.7 <=1.5 % [facility] Na Whole Blood 141 135 - 145 mmol/L [facility] K Whole Blood 4.2 3.5 - 5.0 mmol/L [facility] Comment: Please note: Patients with WBC >100,000 may have falsely elevated Potassium levels. Contact the Clinical Chemistry Laboratory if there are any questions. ICa Whole Blood 1.18 1.15 - 1.33 mmol/L [facility] Comment: Note: ??Total bilirubin higher than 20 mg/dL may lead to falsely low ionized calcium. CL Whole Blood 106 98 - 107 mmol/L [facility] Gluc Whole Bld 194 65 - 199 mg/dL [facility] Comment:Diabetes: >=200 mg/d L plus symptoms. Lactate WB 2.6(H) 0.5 - 2.2 mmol/L [facility] FIO2 Art 40 % [facility] PF Ratio Art 138 [facility] Blood specimen (specimen) 07/17/2017 11:54 AM EDT 07/17/2017 11:54 AM EDT Sriram Contreras MD POINT OF CARE TEST ORDERABLES [facility] [place] [address] * Cardiac Enzymes (07/17/2017 5:42 AM EDT) Troponin-T <0.01 0.00 - 0.00 ng/mL [facility] Comment: The 99th percentile for Troponin T is less than 0.01 ng/mL, any detectable cTnT concentration using this assay should be considered elevated. According to the third universal definition of myocardial infarction the following criteria with a clinical presentation consistent with acute myocardial ischemia meets the diagnosis for a myocardial infarction (IA). Detection of a rise and/or fall of cTnT, with at least one value greater than the 99th percentile (> or = 0.01) and with at least one of the following ?? Symptoms of ischemia ?? New or presumed new significant [id number] wave (ST-T) changes or new left bundle [...] additional sample may be indicated. Reference: Third [place] Definition of Myocardial Infarction. Journal of the [place] [employer] 2012;60:1581-98 Creatine Kinase 47 0 - 200 unit/L [facility] Blood specimen (specimen) 07/17/2017 5:42 AM EDT 07/17/2017 5:42 AM EDT Narrative Resulting Agency Comment Spec In Lab Sriram Contreras MD CHEMISTRY ORDERABL ES Performing Organization Address City/State/[facility] Co de Phone Number [facility] [place] [address] * (ABNORMAL) Differential, Automated (07/17/2017 12:30 AM EDT) Neutrophil % 90.5 % [facility] Neutrophil Absolute 8.62(H) 1.70 - 6.10 x10(3)/mc L [facility] Lymph % 3.7 % [facility] Lymphocytes Abs 0.4(L) 0.9 - 3.2 x10(3)/mc L [facility] Monocyte % 4.9 % [facility] Monocyte Abs 0.5 0.3 - 0.9 x10(3)/mc L [facility] Eos % 0.0 % [facility] Eosinophils Abs 0.0 0.0 - 0.4 x10(3)/mc L [facility] Basophil % 0.1 % [facility] Baso Absolute 0.0 0.0 - 0.1 x10(3)/mc L [facility] Immature Gran % 0.80 % [facility] Comment: Immature granulocytes(IG's)percentage and absolute count will include metamyelocytes, myelocytes, and promyelocytes. Blood smears from CBCs yielding IG's will be scanned manually for concordance. If this scan disagrees with the automated IG or if promyelocytes are noted, a manual differential will be performed. Immature Gran Absolute 0.08(H) 0.00 - 0.04 x10(3)/mc L [facility] Blood specimen (specimen) 07/17/2017 12:30 AM EDT 07/17/2017 1:13 AM EDT Narrative Resulting Agency Comment Spec In Lab Sriram Contreras MD HEMATOLOGY ORDERAB LES [facility] [place] [address] * (ABNORMAL) Hemogram (07/17/2017 12:30 AM EDT) White Blood Cell 9.5 4.0 - 9.5 x10(3)/mc L [facility] Red Blood Cell 3.98(L) 4.58 - 5.54 x10(6)/mc L [facility] Hemoglobin 12.4(L) 13.7 - 16.5 gm/dL [facility] Hematocrit 36.7(L) 40.5 - 48.5 % [facility] Mean Cell Volume 92.2 82.9 - 93.1 fL [facility] Mean Cell Hemoglobin 31.2 27.5 - 32.1 pg [facility] Mean Cell Hemoglobin Concentration 33.8 32.0 - 35.7 gm/dL [facility] Platelet 133(L) 145 - 357 x10(3)/mc L [facility] RDW Standard Deviation 47.7(H) 36.0 - 45.0 fL [facility] RDW coefficient of variation 13.8 11.4 - 13.8 % [facility] Mean Platelet Volume 10.9 7.6 - 12.9 fL [facility] NRBC% auto 0.0 % [facility] NRBC Absolute 0.000 0.000 - 0.000 x10(3)/mc L [facility] Blood specimen (specimen) 07/17/2017 12:30 AM EDT 07/17/2017 1:13 AM EDT Narrative Resulting Agency Comment Spec In Lab Sriram Contreras MD HEMATOLOGY ORDERAB LES [facility] [place] [address] * (ABNORMAL) Basic Metabolic Panel (non-fasting) (07/17/2017 12:30 AM EDT) Glucose 246(H) 65 - 199 mg/dL [facility] Comment:Diabetes: >=200 mg/d L plus symptoms Blood Urea Nitrogen 17 10 - 20 mg/dL [facility] Creatinine 0.73(L) 0.80 - 1.50 mg/dL [facility] Comment: Please note that the pediatric reference intervals supplied above were not validated at [facility]. Results from pediatric patients should be interpreted in conjunction to the patient's age, height and muscle mass. Sodium 137 135 - 145 mmol/L [facility] Potassium 4.7 3.5 - 5.0 mmol/L [facility] Comment: Please note: ??Patients with WBC >100,000 may have falsely elevated Potassium levels. ??For accurate Potassium quantification in these patients send serum separator tube (gold top) for subsequent determinations. ??Contact the Clinical Chemistry Laboratory if there are any questions. Chloride 103 98 - 107 mmol/L [facility] Carbon Dioxide 21(L) 22 - 31 mmol/L [facility] Anion Gap 13 5 - 15 mmol/L [facility] Calcium 8.3(L) 8.5 - 10.5 mg/dL [facility] Est Glomerular Filtration Rate >60 >=60 [facility] Comment: This estimated GFR [...] the following links into your internet browser. [email or web address] Blood specimen (specimen) 07/17/2017 12:30 AM EDT 07/17/2017 1:13 AM EDT Narrative Resulting Agency Comment Spec In Lab Sriram Contreras MD CHEMISTRY ORDERABL ES [facility] [place] [address] * Cardiac Enzymes (07/17/2017 12:30 AM EDT) Troponin-T <0.01 0.00 - 0.00 ng/mL [facility] Comment: The 99th percentile for Troponin T is less than 0.01 ng/mL, any detectable cTnT concentration using this assay should be considered elevated. According to the third universal definition of myocardial infarction the following criteria with a clinical presentation consistent with acute myocardial ischemia meets the diagnosis for a myocardial infarction (IA). Detection of a rise and/or fall of cTnT, with at least one value greater than the 99th percentile (> or = 0.01) and with at least one of the following ?? Symptoms of ischemia ?? New or presumed new significant HP-ikoovee-S wave (ST-T) changes or new left bundle [...] additional sample may be indicated. Reference: Third [place] Definition of Myocardial Infarction. Journal of the [place] [employer] 2012;60:1581-98 Creatine Kinase 60 0 - 200 unit/L [facility] Blood specimen (specimen) 07/17/2017 12:30 AM EDT 07/17/2017 1:13 AM EDT Narrative Resulting Agency Comment Spec In Lab Sriram Contreras MD CHEMISTRY ORDERABL ES [facility] [place] [address] * XR Chest PA or AP 1 [...] Cardiac Enzymes (07/16/2017 5:10 PM EDT) Pathologist [facility] [place] Troponin-T <0.01 0.00 - 0.00 ng/mL [facility] Comment: The 99th percentile for Troponin T is less than 0.01 ng/mL, any detectable cTnT concentration using this assay should be considered elevated. According to the third universal definition of myocardial infarction the following criteria with a clinical presentation consistent with acute myocardial ischemia meets the diagnosis for a myocardial infarction (IA). Detection of a rise and/or fall of cTnT, with at least one value greater than the 99th percentile (> or = 0.01) and with at least one of the following ?? Symptoms of ischemia ?? New or presumed new significant ZX-pbxmqxh-H wave (ST-T) changes or new left bundle [...] additional sample may be indicated. Reference: Third [place] Definition of Myocardial Infarction. Journal of the [place] [employer] 2012;60:1581-98 Creatine Kinase 63 0 - 200 unit/L [facility] Blood specimen (specimen) 07/16/2017 5:10 PM EDT 07/16/2017 5:20 PM EDT Narrative Resulting Agency Comment Spec In Lab Sriram Contreras MD CHEMISTRY ORDERABL ES [facility] [place] [address] * EKG 12 Lead (07/16/2017 4:46 PM EDT) Ventricular rate 70 BPM MUSE SYSTEM Atrial Rate 70 BPM MUSE SYSTEM P-R Interval 208 ms MUSE SYSTEM QRS Duration 96 ms MUSE SYSTEM Q-T Interval 404 ms MUSE SYSTEM QTC Calculated (Bezet) 436 ms MUSE SYSTEM Calculated P [place] 57 degrees MUSE SYSTEM Calculated R [place] 54 degrees MUSE SYSTEM Calculated T [place] 50 degrees MUSE SYSTEM INTERPRETATION Sinus rhythm with frequent Premature ventricular complexes in a pattern of bigeminy Otherwise normal ECG Confirmed by MD Bello Douglas ([id number]) on 07/17/2017 2:06:02 PM MUSE SYSTEM 07/16/2017 4:46 PM EDT 07/17/2017 2:06 PM EDT Sriram Contreras MD ECG ORDERABLES Performing Organization Address City/[facility]/ZIP Co de Phone Number MUSE SYSTEM * Magnesium (07/16/2017 4:00 AM EDT) Magnesium 0.82 0.69 - 1.07 mmol/L [facility] Blood specimen (specimen) Venous Draw / Unknown 07/16/2017 4:00 AM EDT 07/16/2017 4:18 AM EDT Narrative Resulting Agency Comment Spec In Lab Sriram Contreras MD CHEMISTRY ORDERABL ES Performing Organization Address [facility] Co de Phone Number [facility] [place] [address] * (ABNORMAL) Differential, Automated (07/16/2017 4:00 AM EDT) Neutrophil % 81.3 % [facility] Neutrophil Absolute 8.31(H) 1.70 - 6.10 x10(3)/mc L [facility] Lymph % 10.7 % [facility] Lymphocytes Abs 1.1 0.9 - 3.2 x10(3)/mc L [facility] Monocyte % 6.8 % [facility] Monocyte Abs 0.7 0.3 - 0.9 x10(3)/mc L [facility] Eos % 0.3 % [facility] Eosinophils Abs 0.0 0.0 - 0.4 x10(3)/mc L [facility] Basophil % 0.4 % [facility] Baso Absolute 0.0 0.0 - 0.1 x10(3)/mc L [facility] Immature Gran % 0.50 % [facility] Comment: Immature granulocytes(IG's)percentage and absolute count will include metamyelocytes, myelocytes, and promyelocytes. Blood smears from CBCs yielding IG's will be scanned manually for concordance. If this scan disagrees with the automated IG or if promyelocytes are noted, a manual differential will be performed. Immature Gran Absolute 0.05(H) 0.00 - 0.04 x10(3)/[facility] Blood specimen (specimen) 07/16/2017 4:00 AM EDT 07/16/2017 4:16 AM EDT Narrative Resulting Agency Comment Spec In Lab Sriram Contreras MD HEMATOLOGY ORDERAB LES [facility] [place] [address] * (ABNORMAL) Hemogram (07/16/2017 4:00 AM EDT) White Blood Cell 10.2(H) 4.0 - 9.5 x10(3)/[facility] Red Blood Cell 3.95(L) 4.58 - 5.54 x10(6)/[facility] Hemoglobin 12.4(L) 13.7 - 16.5 gm/dL [facility] Hematocrit 37.2(L) 40.5 - 48.5 % [facility] Mean Cell Volume 94.2(H) 82.9 - 93.1 fL [facility] Mean Cell Hemoglobin 31.4 27.5 - 32.1 pg [facility] Mean Cell Hemoglobin Concentration 33.3 32.0 - 35.7 gm/dL [facility] Platelet 126(L) 145 - 357 x10(3)/[facility] RDW Standard Deviation 50.0(H) 36.0 - 45.0 fL [facility] RDW coefficient of variation 14.3(H) 11.4 - 13.8 % [facility] Mean Platelet Volume 10.3 7.6 - 12.9 fL [facility] NRBC% auto 0.0 % [facility] NRBC Absolute 0.000 0.000 - 0.000 x10(3)/mc L [facility] Blood specimen (specimen) 07/16/2017 4:00 AM EDT 07/16/2017 4:16 AM EDT Narrative Resulting Agency Comment Spec In Lab Sriram Contreras MD HEMATOLOGY ORDERAB LES [facility] [place] [address] * (ABNORMAL) Basic Metabolic Panel (non-fasting) (07/16/2017 4:00 AM EDT) Glucose 131 65 - 199 mg/dL [facility] Comment:Diabetes: >=200 mg/d L plus symptoms Blood Urea Nitrogen 16 10 - 20 mg/dL [facility] Creatinine 0.82 0.80 - 1.50 mg/dL [facility] Comment: Please note that the pediatric reference intervals supplied above were not validated at [facility]. Results from pediatric patients should be interpreted in conjunction to the patient's age, height and muscle mass. Sodium 144 135 - 145 mmol/L [facility] Potassium 4.2 3.5 - 5.0 mmol/L [facility] Comment: Please note: ??Patients with WBC >100,000 may have falsely elevated Potassium levels. ??For accurate Potassium quantification in these patients send serum separator tube (gold top) for subsequent determinations. ??Contact the Clinical Chemistry Laboratory if there are any questions. Chloride 106 98 - 107 mmol/L [facility] Carbon Dioxide 21(L) 22 - 31 mmol/L [facility] Anion Gap 17(H) 5 - 15 mmol/L [facility] Calcium 8.1(L) 8.5 - 10.5 mg/dL [facility] Est Glomerular Filtration Rate >60 >=60 [facility] Comment: This estimated GFR [...] the following links into your internet browser. [email or web address] Blood specimen (specimen) 07/16/2017 4:00 AM EDT 07/16/2017 4:16 AM EDT Narrative Resulting Agency Comment Spec In Lab Sriram Contreras MD CHEMISTRY ORDERABL ES Performing Organization Address [facility] Phone Number [facility] [place] [address] * POCT Glucose (07/15/2017 12:26 PM EDT) Glucose, POC 75 65 - 199 mg/dL [facility] Comment: Supplemental ranges: <140 mg/dL before meals <180 mg/dL all other times of the day Blood specimen (specimen) 07/15/2017 12:26 PM EDT 07/15/2017 12:26 PM EDT Sriram Contreras MD POINT OF CARE TEST ORDERABLES Performing Organization Address [facility] Co de Phone Number [facility] [place] [address] * (ABNORMAL) Basic Metabolic Panel (non-fasting) (07/15/2017 10:20 AM EDT) Glucose 111 65 - 199 mg/dL [facility] Comment:Diabetes: >=200 mg/d L plus symptoms Blood Urea Nitrogen 19 10 - 20 mg/dL [facility] Creatinine 0.96 0.80 - 1.50 mg/dL [facility] Comment: Please note that the pediatric reference intervals supplied above were not validated at [facility]. Results from pediatric patients should be interpreted in conjunction to the patient's age, height and muscle mass. Sodium 143 135 - 145 mmol/L [facility] Potassium 4.0 3.5 - 5.0 mmol/L [facility] Comment: Please note: ??Patients with WBC >100,000 may have falsely elevated Potassium levels. ??For accurate Potassium quantification in these patients send serum separator tube (gold top) for subsequent determinations. ??Contact the Clinical Chemistry Laboratory if there are any questions. Chloride 107 98 - 107 mmol/L [facility] Carbon Dioxide 22 22 - 31 mmol/L [facility] Anion Gap 14 5 - 15 mmol/L [facility] Calcium 8.2(L) 8.5 - 10.5 mg/dL [facility] Est Glomerular Filtration Rate >60 >=60 [facility] Comment: This estimated GFR [...] the following links into your internet browser. [email or web address] Blood specimen (specimen) 07/15/2017 10:20 AM EDT 07/15/2017 10:24 AM EDT Narrative Resulting Agency Comment Spec In Lab Sriram Contreras MD CHEMISTRY ORDERABL ES [facility] [place] [address] * POCT Glucose (07/15/2017 8:30 AM EDT) Glucose, POC 111 65 - 199 mg/dL [facility] Comment: Supplemental ranges: <140 mg/dL before meals <180 mg/dL all other times of the day Blood specimen (specimen) 07/15/2017 8:30 AM EDT 07/15/2017 8:30 AM EDT Sriram Contreras MD POINT OF CARE TEST ORDERABLES [facility] [place] [address] * (ABNORMAL) BLOOD GAS 2 ARTERIAL (07/15/2017 4:17 AM EDT) pH, Arterial 7.38 7.35 - 7.45 [facility] PCO2, Arterial 42 35 - 45 mmHg [facility] PO2, Arterial 61(L) 85 - 104 mmHg [facility] Bicarbonate, Arterial 24.6 20.0 - 26.0 mmol/L [facility] Base Excess, Arterial -0.4 -3.0 - 3.0 mmol/L [facility] Hgb Blood Gas 14.0 13.7 - 16.5 gm/dL [facility] Oxyhemoglobin, Arterial 90.6(L) 94.0 - 97.0 % [facility] Carboxyhemoglob in, Arterial 0.2 % [facility] Comment: Nonsmokers: 0.5-1.5% COHB Smokers: Variable, but usually less than 10% Toxic: 20-30% COHB Lethal: Greater than 60% COHB Methemoglobin, Arterial 0.5 <=1.5 % [facility] Na Whole Blood 139 135 - 145 mmol/L [facility] K Whole Blood 4.1 3.5 - 5.0 mmol/L [facility] Comment: Please note: Patients with WBC >100,000 may have falsely elevated Potassium levels. Contact the Clinical Chemistry Laboratory if there are any questions. ICa Whole Blood 1.19 1.15 - 1.33 mmol/L [facility] Comment: Note: ??Total bilirubin higher than 20 mg/dL may lead to falsely low ionized calcium. CL Whole Blood 106 98 - 107 mmol/L [facility] Gluc Whole Bld 130 65 - 199 mg/dL [facility] Comment:Diabetes: >=200 mg/d L plus symptoms. Lactate WB 1.9 0.5 - 2.2 mmol/L [facility] FIO2 Art 35 % [facility] PF Ratio Art 174 [facility] Blood specimen (specimen) 07/15/2017 4:17 AM EDT 07/15/2017 4:17 AM EDT Sriram Contreras MD POINT OF CARE TEST ORDERABLES Performing Organization Address City/State/[facility] Co de Phone Number [facility] [place] [address] * (ABNORMAL) Differential, Automated (07/15/2017 4:15 AM EDT) Neutrophil % 84.7 % [facility] Neutrophil Absolute 12.39(H) 1.70 - 6.10 x10(3)/mc L [facility] Lymph % 6.2 % [facility] Lymphocytes Abs 0.9 0.9 - 3.2 x10(3)/mc L [facility] Monocyte % 8.0 % [facility] Monocyte Abs 1.2(H) 0.3 - 0.9 x10(3)/mc L [facility] Eos % 0.0 % [facility] Eosinophils Abs 0.0 0.0 - 0.4 x10(3)/mc L [facility] Basophil % 0.1 % [facility] Baso Absolute 0.0 0.0 - 0.1 x10(3)/mc L [facility] Immature Gran % 1.00 % [facility] Comment: Immature granulocytes(IG's)percentage and absolute count will include metamyelocytes, myelocytes, and promyelocytes. Blood smears from CBCs yielding IG's will be scanned manually for concordance. If this scan disagrees with the automated IG or if promyelocytes are noted, a manual differential will be performed. Immature Gran Absolute 0.14(H) 0.00 - 0.04 x10(3)/mc L [facility] Blood specimen (specimen) 07/15/2017 4:15 AM EDT 07/15/2017 4:28 AM EDT Narrative Resulting Agency Comment Spec In Lab Sriram Contreras MD HEMATOLOGY ORDERAB LES [facility] [place] [address] * (ABNORMAL) Hemogram (07/15/2017 4:15 AM EDT) White Blood Cell 14.6(H) 4.0 - 9.5 x10(3)/mc L [facility] Red Blood Cell 4.16(L) 4.58 - 5.54 x10(6)/mc L [facility] Hemoglobin 13.0(L) 13.7 - 16.5 gm/dL [facility] Hematocrit 38.9(L) 40.5 - 48.5 % [facility] Mean Cell Volume 93.5(H) 82.9 - 93.1 fL [facility] Mean Cell Hemoglobin 31.3 27.5 - 32.1 pg [facility] Mean Cell Hemoglobin Concentration 33.4 32.0 - 35.7 gm/dL [facility] Platelet 135(L) 145 - 357 x10(3)/mc L [facility] RDW Standard Deviation 48.8(H) 36.0 - 45.0 fL [facility] RDW coefficient of variation 14.2(H) 11.4 - 13.8 % [facility] Mean Platelet Volume 10.0 7.6 - 12.9 fL [facility] NRBC% auto 0.0 % [facility] NRBC Absolute 0.000 0.000 - 0.000 x10(3)/mc L [facility] Blood specimen (specimen) 07/15/2017 4:15 AM EDT 07/15/2017 4:28 AM EDT Narrative Resulting Agency Comment Spec In Lab Sriram Contreras MD HEMATOLOGY ORDERAB LES Performing Organization Address [facility] de Phone Number [facility] [place] [address] * Potassium (07/14/2017 8:20 PM EDT) Potassium 4.4 3.5 - 5.0 mmol/L [facility] Comment: Please note: ??Patients [...] MD CHEMISTRY ORDERABL ES Performing Organization Address [facility] Phone Number [facility] [place] [address] * (ABNORMAL) Magnesium (07/14/2017 8:20 PM EDT) Magnesium 1.08(H) 0.69 - 1.07 mmol/L [facility] Blood specimen (specimen) 07/14/2017 8:20 PM EDT 07/14/2017 8:31 PM EDT Narrative Resulting Agency Comment Spec In Lab Sriram Contreras MD CHEMISTRY ORDERABL ES Performing Organization Address [facility] de Phone Number [facility] [place] [address] * Magnesium (07/14/2017 4:30 PM EDT) Magnesium 0.86 0.69 - 1.07 mmol/L [facility] Blood specimen (specimen) 07/14/2017 4:30 PM EDT 07/14/2017 4:50 PM EDT Narrative Resulting Agency Comment Spec In Lab Sriram Contreras MD CHEMISTRY ORDERABL ES Performing Organization Address [facility] Co de Phone Number [facility] [place] [address] * POCT Glucose (07/14/2017 4:26 PM EDT) Glucose, POC 146 65 - 199 mg/dL [facility] Comment: Supplemental ranges: <140 mg/dL before meals <180 mg/dL all other times of the day Blood specimen (specimen) 07/14/2017 4:26 PM EDT 07/14/2017 4:26 PM EDT Sriram Contreras MD POINT OF CARE TEST ORDERABLES Performing Organization Address [facility] Co de Phone Number [facility] [place] [address] * EKG 12 Lead (07/14/2017 12:37 PM EDT) Ventricular rate 67 BPM MUSE SYSTEM Atrial Rate 67 BPM MUSE SYSTEM P-R Interval 216 ms MUSE SYSTEM QRS Duration 100 ms MUSE SYSTEM Q-T Interval 438 ms MUSE SYSTEM QTC Calculated (Bezet) 462 ms MUSE SYSTEM Calculated P [place] 58 degrees MUSE SYSTEM Calculated R [place] 56 degrees MUSE SYSTEM Calculated T [place] 38 degrees MUSE SYSTEM INTERPRETATION Sinus rhythm with 1st degree A-V block Otherwise normal ECG When compared with ECG of 29-MAR-1997 12:50, CT interval has increased Confirmed by MD Radha, Daryl ([id number]) on 07/14/2017 5:07:22 PM MUSE SYSTEM 07/14/2017 12:3 7 PM EDT 07/14/2017 5:07 PM EDT Sriram Contreras MD ECG ORDERABLES Performing Organization Address [facility] Co de Phone Number MUSE SYSTEM * POCT Glucose (07/14/2017 12:05 PM EDT) Glucose, POC 147 65 - 199 mg/dL [facility] Comment: Supplemental ranges: <140 mg/dL before meals <180 mg/dL all other times of the day Blood specimen (specimen) 07/14/2017 12:05 PM EDT 07/14/2017 12:05 PM EDT Sriram Contreras MD POINT OF CARE TEST ORDERABLES Performing Organization Address City/[facility] Co de Phone Number [facility] [place] [address] * POCT Glucose (07/14/2017 8:25 AM EDT) Glucose, POC 140 65 - 199 mg/dL [facility] Comment: Supplemental ranges: <140 mg/dL before meals <180 mg/dL all other times of the day Blood specimen (specimen) 07/14/2017 8:25 AM EDT 07/14/2017 8:25 AM EDT Sriram Contreras MD POINT OF CARE TEST ORDERABLES Performing Organization Address [facility] Co de Phone Number [facility] [place] [address] * (ABNORMAL) Differential, Automated (07/14/2017 12:36 AM EDT) Pathologist [facility] [place] Neutrophil % 90.3 % [facility] Neutrophil Absolute 13.17(H) 1.70 - 6.10 x10(3)/mc L [facility] Lymph % 3.8 % [facility] Lymphocytes Abs 0.6(L) 0.9 - 3.2 x10(3)/mc L [facility] Monocyte % 5.4 % [facility] Monocyte Abs 0.8 0.3 - 0.9 x10(3)/mc L [facility] Eos % 0.0 % [facility] Eosinophils Abs 0.0 0.0 - 0.4 x10(3)/ L [facility] Basophil % 0.1 % [facility] Baso Absolute 0.0 0.0 - 0.1 x10(3)/[facility] Immature Gran % 0.40 % [facility] Comment: Immature granulocytes(IG's)percentage and absolute count will include metamyelocytes, myelocytes, and promyelocytes. Blood smears from CBCs yielding IG's will be scanned manually for concordance. If this scan disagrees with the automated IG or if promyelocytes are noted, a manual differential will be performed. Immature Gran Absolute 0.06(H) 0.00 - 0.04 x10(3)/[facility] Blood specimen (specimen) 07/14/2017 12:36 AM EDT 07/14/2017 12:41 AM EDT Narrative Resulting Agency Comment Spec In Lab Sriram Contreras MD HEMATOLOGY ORDERAB LES [facility] [place] [address] * (ABNORMAL) Hemogram (07/14/2017 12:36 AM EDT) White Blood Cell 14.6(H) 4.0 - 9.5 x10(3)/[facility] Red Blood Cell 4.57(L) 4.58 - 5.54 x10(6)/ L [facility] Hemoglobin 14.1 13.7 - 16.5 gm/dL [facility] Hematocrit 42.1 40.5 - 48.5 % [facility] Mean Cell Volume 92.1 82.9 - 93.1 fL [facility] Mean Cell Hemoglobin 30.9 27.5 - 32.1 pg [facility] Mean Cell Hemoglobin Concentration 33.5 32.0 - 35.7 gm/dL [facility] Platelet 157 145 - 357 x10(3)/[facility] RDW Standard Deviation 48.6(H) 36.0 - 45.0 fL [facility] RDW coefficient of variation 14.4(H) 11.4 - 13.8 % [facility] Mean Platelet Volume 10.2 7.6 - 12.9 fL [facility] NRBC% auto 0.0 % [facility] NRBC Absolute 0.000 0.000 - 0.000 x10(3)/mc L [facility] Blood specimen (specimen) 07/14/2017 12:36 AM EDT 07/14/2017 12:41 AM EDT Narrative Resulting Agency Comment Spec In Lab Sriram Contreras MD HEMATOLOGY ORDERAB LES Performing Organization Address [facility] Co de Phone Number [facility] [place] [address] * (ABNORMAL) Magnesium (07/14/2017 12:36 AM EDT) Magnesium 0.65(L) 0.69 - 1.07 mmol/L [facility] Blood specimen (specimen) 07/14/2017 12:36 AM EDT 07/14/2017 12:41 AM EDT Narrative Resulting Agency Comment Spec In Lab Sriram Contreras MD CHEMISTRY ORDERABL ES Performing Organization Address [facility] de Phone Number [facility] [place] [address] * Phosphorus (07/14/2017 12:36 AM EDT) Phosphorus 3.3 2.5 - 4.5 mg/dL [facility] Blood specimen (specimen) 07/14/2017 12:36 AM EDT 07/14/2017 12:41 AM EDT Narrative Resulting Agency Comment Spec In Lab Sriram Contreras MD CHEMISTRY ORDERABL ES Performing Organization Address [facility] Co de Phone Number [facility] [place] [address] * Prealbumin (07/14/2017 12:36 AM EDT) Prealbumin 23 20 - 40 mg/dL [facility] Comment: Prealbumin levels are generally lower in the pediatric population; adult concentrations are usually attained near puberty. Blood specimen (specimen) 07/14/2017 12:36 AM EDT 07/14/2017 12:45 AM EDT Narrative Resulting Agency Comment Spec In Lab Sriram Contreras MD CHEMISTRY ORDERABL ES [facility] [place] [address] * (ABNORMAL) Basic Metabolic Panel (non-fasting) (07/14/2017 12:36 AM EDT) Glucose 161 65 - 199 mg/dL [facility] Comment:Diabetes: >=200 mg/d L plus symptoms Blood Urea Nitrogen 16 10 - 20 mg/dL [facility] Creatinine 0.97 0.80 - 1.50 mg/dL [facility] Comment: Please note that the pediatric reference intervals supplied above were not validated at [facility]. Results from pediatric patients should be interpreted in conjunction to the patient's age, height and muscle mass. Sodium 144 135 - 145 mmol/L [facility] Potassium 4.5 3.5 - 5.0 mmol/L [facility] Comment: result rechecked- Please note: ??Patients with WBC >100,000 may have falsely elevated Potassium levels. ??For accurate Potassium quantification in these patients send serum separator tube (gold top) for subsequent determinations. ??Contact the Clinical Chemistry Laboratory if there are any questions. Chloride 108(H) 98 - 107 mmol/L [facility] Carbon Dioxide 19(L) 22 - 31 mmol/L [facility] Anion Gap 17(H) 5 - 15 mmol/L [facility] Calcium 7.7(L) 8.5 - 10.5 mg/dL [facility] Est Glomerular Filtration Rate >60 >=60 [facility] Comment: This estimated GFR [...] the following links into your internet browser. [email or web address] Blood specimen (specimen) 07/14/2017 12:36 AM EDT 07/14/2017 12:41 AM EDT Narrative Resulting Agency Comment Spec In Lab Sriram Contreras MD CHEMISTRY ORDERABL ES [facility] [place] [address] * (ABNORMAL) Basic Metabolic Panel (non-fasting) (07/13/2017 9:33 PM EDT) Glucose 147 65 - 199 mg/dL [facility] Comment:Diabetes: >=200 mg/d L plus symptoms Blood Urea Nitrogen 17 10 - 20 mg/dL [facility] Creatinine 1.16 0.80 - 1.50 mg/dL [facility] Comment: Please note that the pediatric reference intervals supplied above were not validated at [facility]. Results from pediatric patients should be interpreted in conjunction to the patient's age, height and muscle mass. Sodium Not Perf 135 - 145 mmol/L [facility] Comment: Unable to quantitate due to sample hemolysis. ??Sample redraw suggested. Called by: michael, Read back by: maddie rucker, Date/Time:07/13/17 22:12. Potassium Not Perf 3.5 - 5.0 mmol/L [facility] Comment: Unable to quantitate [...] Chloride Not Perf 98 - 107 mmol/L [facility] Comment: Unable to quantitate due to sample hemolysis. ??Sample redraw suggested. Called by: michael, Read back by: maddie rucker, Date/Time:07/13/17 22:12. Carbon Dioxide 18(L) 22 - 31 mmol/L [facility] Anion Gap Not Calculated 5 - 15 mmol/L [facility] Calcium 7.3(L) 8.5 - 10.5 mg/dL [facility] Est Glomerular Filtration Rate >60 >=60 [facility] Comment: This estimated GFR [...] the following links into your internet browser. [email or web address] Blood specimen (specimen) 07/13/2017 9:33 PM EDT 07/13/2017 9:41 PM EDT Narrative Resulting Agency Comment Spec In Lab Sriram Contreras MD CHEMISTRY ORDERABL ES [facility] [place] [address] * XR Chest PA or AP 1 [...] PM EDT 07/13/2017 7:35 PM EDT Narrative [facility] - 07/13/2017 7:35 PM EDT Specimen requisition ordered. ??Separate Pathology report to follow Sriram Contreras MD PATHOLOGY/CYTOLOGY ORDERABLES [facility] [place] [address] * Specimen to Pathology (surgical or derm) (07/13/2017 7:05 PM EDT) AP Specimen 07/13/2017 7:05 PM EDT 07/13/2017 7:05 PM EDT Narrative [facility] - 07/13/2017 7:05 PM EDT Specimen requisition ordered. ??Separate Pathology report to follow Sriram Contreras MD PATHOLOGY/CYTOLOGY ORDERABLES Performing Organization Address City/[facility]/[place] [address] * Specimen to Pathology (surgical or derm) (07/13/2017 6:21 PM EDT) AP Specimen 07/13/2017 6:21 PM EDT 07/13/2017 6:21 PM EDT Narrative [facility] - 07/13/2017 6:21 PM EDT Specimen requisition ordered. ??Separate Pathology report to follow Sriram Contreras MD PATHOLOGY/CYTOLOGY ORDERABLES Performing Organization Address [facility] [place] [address] * Specimen to Pathology (surgical or derm) (07/13/2017 5:30 PM EDT) AP Specimen 07/13/2017 5:30 PM EDT 07/13/2017 5:30 PM EDT Narrative [facility] - 07/13/2017 5:30 PM EDT Specimen requisition ordered. ??Separate Pathology report to follow Sriram Contreras MD PATHOLOGY/CYTOLOGY ORDERABLES Performing Organization Address City/[facility]/[place] [address] * Specimen to Pathology (surgical or derm) (07/13/2017 5:30 PM EDT) AP Specimen 07/13/2017 5:30 PM EDT 07/13/2017 5:30 PM EDT Narrative [facility] - 07/13/2017 5:30 PM EDT Specimen requisition ordered. ??Separate Pathology report to follow Sriram Contreras MD PATHOLOGY/CYTOLOGY ORDERABLES Performing Organization Address City/[facility]/[place] [address] * Specimen to Pathology (surgical or derm) (07/13/2017 5:30 PM EDT) AP Specimen 07/13/2017 5:30 PM EDT 07/13/2017 5:30 PM EDT Narrative [facility] - 07/13/2017 5:30 PM EDT Specimen requisition ordered. ??Separate Pathology report to follow Sriram Contreras MD PATHOLOGY/CYTOLOGY ORDERABLES [facility] [place] [address] * Specimen to Pathology (surgical or derm) (07/13/2017 5:30 PM EDT) AP Specimen 07/13/2017 5:30 PM EDT 07/13/2017 5:30 PM EDT Narrative [facility] - 07/13/2017 5:30 PM EDT Specimen requisition ordered. ??Separate Pathology report to follow Sriram Contreras MD PATHOLOGY/CYTOLOGY ORDERABLES [facility] [place] [address] * Specimen to Pathology (surgical or derm) (07/13/2017 5:21 PM EDT) AP Specimen 07/13/2017 5:21 PM EDT 07/13/2017 5:21 PM EDT Narrative [facility] - 07/13/2017 5:21 PM EDT Specimen requisition ordered. ??Separate Pathology report to follow Sriram Contreras MD PATHOLOGY/[place] [address] * Specimen to Pathology (surgical or derm) (07/13/2017 5:21 PM EDT) AP Specimen 07/13/2017 5:21 PM EDT 07/13/2017 5:21 PM EDT Narrative [facility] - 07/13/2017 5:21 PM EDT Specimen requisition ordered. ??Separate Pathology report to follow Sriram Contreras MD PATHOLOGY/CYTOLOGY ORDERABLES Performing Organization Address City/[facility]/[place] [address] * Specimen to Pathology (surgical or derm) (07/13/2017 5:21 PM EDT) AP Specimen 07/13/2017 5:21 PM EDT 07/13/2017 5:21 PM EDT Narrative [facility] - 07/13/2017 5:21 PM EDT Specimen requisition ordered. ??Separate Pathology report to follow Sriram Contreras MD PATHOLOGY/CYTOLOGY ORDERABLES Performing Organization Address City/[facility]/[place] [address] * Specimen to Pathology (surgical or derm) (07/13/2017 5:16 PM EDT) AP Specimen 07/13/2017 5:16 PM EDT 07/13/2017 5:16 PM EDT Narrative [facility] - 07/13/2017 5:16 PM EDT Specimen requisition ordered. ??Separate Pathology report to follow Sriram Contreras MD PATHOLOGY/CYTOLOGY ORDERABLES Performing Organization Address City/[facility]/[place] [address] * Specimen to Pathology (surgical or derm) (07/13/2017 5:05 PM EDT) AP Specimen 07/13/2017 5:05 PM EDT 07/13/2017 5:05 PM EDT Narrative [facility] - 07/13/2017 5:05 PM EDT Specimen requisition ordered. ??Separate Pathology report to follow Sriram Contreras MD PATHOLOGY/CYTOLOGY ORDERABLES Performing Organization Address City/[facility]/[place] [address] * Specimen to Pathology (surgical or derm) (07/13/2017 5:05 PM EDT) AP Specimen 07/13/2017 5:05 PM EDT 07/13/2017 5:05 PM EDT [facility] - 07/13/2017 5:05 PM EDT Specimen requisition ordered. ??Separate Pathology report to follow Sriram Contreras MD PATHOLOGY/CYTOLOGY ORDERABLES [facility] [place] [address] * Specimen to Pathology (surgical or derm) (07/13/2017 4:39 PM EDT) AP Specimen 07/13/2017 4:39 PM EDT 07/13/2017 4:39 PM EDT [facility] - 07/13/2017 4:39 PM EDT Specimen requisition ordered. ??Separate Pathology report to follow Sriram Contreras MD PATHOLOGY/CYTOLOGY ORDERABLES [facility] [place] [address] * Specimen to Pathology (surgical or derm) (07/13/2017 4:35 PM EDT) AP Specimen 07/13/2017 4:35 PM EDT 07/13/2017 4:35 PM EDT [facility] - 07/13/2017 4:35 PM EDT Specimen requisition ordered. ??Separate Pathology report to follow Sriram Contreras MD PATHOLOGY/[place] [address] * Specimen to Pathology (surgical or derm) (07/13/2017 4:35 PM EDT) AP Specimen 07/13/2017 4:35 PM EDT 07/13/2017 4:35 PM EDT [facility] - 07/13/2017 4:35 PM EDT Specimen requisition ordered. ??Separate Pathology report to follow Sriram Contreras MD PATHOLOGY/CYTOLOGY ORDERABLES Performing Organization Address [facility]/[place] [address] * Specimen to Pathology (surgical or derm) (07/13/2017 3:52 PM EDT) AP Specimen 07/13/2017 3:52 PM EDT 07/13/2017 3:52 PM EDT Narrative [facility] - 07/13/2017 3:52 PM EDT Specimen requisition ordered. ??Separate Pathology report to follow Sriram Contreras MD PATHOLOGY/CYTOLOGY ORDERABLES Performing Organization Address [facility] [place] [address] * Specimen to Pathology (surgical or derm) (07/13/2017 3:52 PM EDT) AP Specimen 07/13/2017 3:52 PM EDT 07/13/2017 3:52 PM EDT Narrative [facility] - 07/13/2017 3:52 PM EDT Specimen requisition ordered. ??Separate Pathology report to follow Sriram Contreras MD PATHOLOGY/CYTOLOGY ORDERABLES Performing Organization Address [facility] [place] [address] * (ABNORMAL) BLOOD GAS 2 ARTERIAL (07/13/2017 3:46 PM EDT) pH, Arterial 7.31(L) 7.35 - 7.45 [facility] PCO2, Arterial 37 35 - 45 mmHg [facility] PO2, Arterial 103 85 - 104 mmHg [facility] Bicarbonate, Arterial 17.8(L) 20.0 - 26.0 mmol/L [facility] Base Excess, Arterial -8.5(L) -3.0 - 3.0 mmol/L [facility] Hgb Blood Gas 15.1 13.7 - 16.5 gm/dL [facility] Oxyhemoglobin, Arterial 96.6 94.0 - 97.0 % [facility] Carboxyhemoglob in, Arterial 0.4 % [facility] Comment: Nonsmokers: 0.5-1.5% COHB Smokers: Variable, but usually less than 10% Toxic: 20-30% COHB Lethal: Greater than 60% COHB Methemoglobin, Arterial 0.3 <=1.5 % [facility] Na Whole Blood 139 135 - 145 mmol/L [facility] K Whole Blood 4.5 3.5 - 5.0 mmol/L [facility] Comment: Please note: Patients with WBC >100,000 may have falsely elevated Potassium levels. Contact the Clinical Chemistry Laboratory if there are any questions. ICa Whole Blood 1.12(L) 1.15 - 1.33 mmol/L [facility] Comment: Note: ??Total bilirubin higher than 20 mg/dL may lead to falsely low ionized calcium. CL Whole Blood 110(H) 98 - 107 mmol/L [facility] Gluc Whole Bld 118 65 - 199 mg/dL [facility] Comment:Diabetes: >=200 mg/d L plus symptoms. Lactate WB 2.9(H) 0.5 - 2.2 mmol/L [facility] Blood specimen (specimen) 07/13/2017 3:46 PM EDT 07/13/2017 3:46 PM EDT Sriram Contreras MD POINT OF CARE TEST ORDERABLES [facility] [place] [address] * (ABNORMAL) BLOOD GAS 2 ARTERIAL (07/13/2017 2:06 PM EDT) pH, Arterial 7.32(L) 7.35 - 7.45 [facility] PCO2, Arterial 32(L) 35 - 45 mmHg [facility] PO2, Arterial 96 85 - 104 mmHg [facility] Bicarbonate, Arterial 16.0(L) 20.0 - 26.0 mmol/L [facility] Base Excess, Arterial -10.1(L) -3.0 - 3.0 mmol/L [facility] Hgb Blood Gas 14.0 13.7 - 16.5 gm/dL [facility] Oxyhemoglobin, Arterial 96.1 94.0 - 97.0 % [facility] Carboxyhemoglob in, Arterial 1.1 % [facility] Comment: Nonsmokers: 0.5-1.5% COHB Smokers: Variable, but usually less than 10% Toxic: 20-30% COHB Lethal: Greater than 60% COHB Methemoglobin, Arterial 0.3 <=1.5 % [facility] Na Whole Blood 139 135 - 145 mmol/L [facility] K Whole Blood 3.8 3.5 - 5.0 mmol/L [facility] Comment: Please note: Patients with WBC >100,000 may have falsely elevated Potassium levels. Contact the Clinical Chemistry Laboratory if there are any questions. ICa Whole Blood 1.02(L) 1.15 - 1.33 mmol/L [facility] Comment: Note: ??Total bilirubin higher than 20 mg/dL may lead to falsely low ionized calcium. CL Whole Blood 115(H) 98 - 107 mmol/L [facility] Gluc Whole Bld 111 65 - 199 mg/dL [facility] Comment:Diabetes: >=200 mg/d L plus symptoms. Lactate WB 2.5(H) 0.5 - 2.2 mmol/L [facility] Blood specimen (specimen) 07/13/2017 2:06 PM EDT 07/13/2017 2:06 PM EDT Sriram Contreras MD POINT OF CARE TEST ORDERABLES [facility] [place] [address] * (ABNORMAL) Comprehensive metabolic panel (non-fasting) (07/13/2017 12:56 PM EDT) Glucose 155 65 - 199 mg/dL [facility] Comment:Diabetes: >=200 mg/d L plus symptoms Blood Urea Nitrogen 17 10 - 20 mg/dL [facility] Creatinine 1.06 0.80 - 1.50 mg/dL [facility] Comment: Please note that the pediatric reference intervals supplied above were not validated at [facility]. Results from pediatric patients should be interpreted in conjunction to the patient's age, height and muscle mass. Sodium 142 135 - 145 mmol/L [facility] Potassium 5.7(H) 3.5 - 5.0 mmol/L [facility] Comment: Please note: ??Patients with WBC >100,000 may have falsely elevated Potassium levels. ??For accurate Potassium quantification in these patients send serum separator tube (gold top) for subsequent determinations. ??Contact the Clinical Chemistry Laboratory if there are any questions. Chloride 108(H) 98 - 107 mmol/L [facility] Carbon Dioxide 20(L) 22 - 31 mmol/L [facility] Anion Gap 14 5 - 15 mmol/L [facility] Calcium 7.9(L) 8.5 - 10.5 mg/dL [facility] Protein, Total 6.2 6.1 - 8.0 gm/dL [facility] Albumin 3.6 3.2 - 5.2 gm/dL [facility] Aspartate Aminotransferase 15 0 - 39 unit/L [facility] Alanine Aminotransferase 13 0 - 55 unit/L [facility] Alkaline Phosphatase 70 40 - 120 unit/L [facility] Bilirubin, Total 0.2 0.2 - 1.3 mg/dL [facility] Est Glomerular Filtration Rate >60 >=60 [facility] Comment: This estimated GFR [...] the following links into your internet browser. [email or web address] Blood specimen (specimen) 07/13/2017 12:56 PM EDT 07/13/2017 1:02 PM EDT Narrative Resulting Agency Comment Spec In Lab Sriram Contreras MD CHEMISTRY ORDERABL ES [facility] [place] [address] * (ABNORMAL) BLOOD GAS 2 ARTERIAL (07/13/2017 12:15 PM EDT) pH, Arterial 7.34(L) 7.35 - 7.45 [facility] PCO2, Arterial 39 35 - 45 mmHg [facility] PO2, Arterial 68(L) 85 - 104 mmHg [facility] Bicarbonate, Arterial 20.4 20.0 - 26.0 mmol/L [facility] Base Excess, Arterial -5.4(L) -3.0 - 3.0 mmol/L [facility] Hgb Blood Gas 15.8 13.7 - 16.5 gm/dL [facility] Oxyhemoglobin, Arterial 91.8(L) 94.0 - 97.0 % [facility] Carboxyhemoglob in, Arterial 0.9 % [facility] Comment: Nonsmokers: 0.5-1.5% COHB Smokers: Variable, but usually less than 10% Toxic: 20-30% COHB Lethal: Greater than 60% COHB Methemoglobin, Arterial 0.3 <=1.5 % [facility] Na Whole Blood 138 135 - 145 mmol/L [facility] K Whole Blood 5.7(H) 3.5 - 5.0 mmol/L [facility] Comment: Please note: Patients with WBC >100,000 may have falsely elevated Potassium levels. Contact the Clinical Chemistry Laboratory if there are any questions. ICa Whole Blood 1.17 1.15 - 1.33 mmol/L [facility] Comment: Note: ??Total bilirubin higher than 20 mg/dL may lead to falsely low ionized calcium. CL Whole Blood 109(H) 98 - 107 mmol/L [facility] Gluc Whole Bld 125 65 - 199 mg/dL [facility] Comment:Diabetes: >=200 mg/d L plus symptoms. Lactate WB 3.7(H) 0.5 - 2.2 mmol/L [facility] Blood specimen (specimen) 07/13/2017 12:15 PM EDT 07/13/2017 12:15 PM EDT Sriram Contreras MD POINT OF CARE TEST ORDERABLES Performing Organization Address City/State/[facility] Co de Phone Number [facility] [place] [address] * Surgical Pathology Report (07/13/2017 12:04 PM EDT) Final Diagnosis [id number] ? Location: ICUS; IC14; A The signing [...] ? All other margins are negative. [facility] January 2016 Annual Release Electronically signed by: [...] iglottic): Green ??Right epiglottis: Blue ??Lateral pharynx: [place] ??Base of tongue mucosa + deep: Blue [...] edge; (6) tumor to closest lateral pharynx ([place]) and deep specimen edges (black); (7) tumor [...] studies, if any. 07/21/2017 9:57 AM EDT [facility] MOUTH REGION STRUCTURE / Unknown [...] PM EDT Sriram Contreras MD PATHOLOGY/[place] [address] * Specimen to Pathology (surgical or derm) (07/13/2017 12:02 PM EDT) AP Specimen 07/13/2017 12:0 2 PM EDT 07/13/2017 12:02 PM EDT Narrative [facility] - 07/13/2017 12:02 PM EDT Specimen requisition ordered. ??Separate Pathology report to follow Sriram Contreras MD PATHOLOGY/CYTOLOGY ORDERABLES Performing Organization Address City/[facility]/[place] [address] * (ABNORMAL) BLOOD GAS 2 ARTERIAL (07/13/2017 10:35 AM EDT) pH, Arterial 7.31(L) 7.35 - 7.45 [facility] PCO2, Arterial 45 35 - 45 mmHg [facility] PO2, Arterial 87 85 - 104 mmHg [facility] Bicarbonate, Arterial 22.2 20.0 - 26.0 mmol/L [facility] Base Excess, Arterial -4.0(L) -3.0 - 3.0 mmol/L [facility] Hgb Blood Gas 15.6 13.7 - 16.5 gm/dL [facility] Oxyhemoglobin, Arterial 95.0 94.0 - 97.0 % [facility] Carboxyhemoglob in, Arterial 0.9 % [facility] Comment: Nonsmokers: 0.5-1.5% COHB Smokers: Variable, but usually less than 10% Toxic: 20-30% COHB Lethal: Greater than 60% COHB Methemoglobin, Arterial 0.0 <=1.5 % [facility] Na Whole Blood 138 135 - 145 mmol/L [facility] K Whole Blood 5.0 3.5 - 5.0 mmol/L [facility] Comment: Please note: Patients with WBC >100,000 may have falsely elevated Potassium levels. Contact the Clinical Chemistry Laboratory if there are any questions. ICa Whole Blood 1.20 1.15 - 1.33 mmol/L [facility] Comment: Note: ??Total bilirubin higher than 20 mg/dL may lead to falsely low ionized calcium. CL Whole Blood 108(H) 98 - 107 mmol/L [facility] Gluc Whole Bld 119 65 - 199 mg/dL [facility] Comment:Diabetes: >=200 mg/d L plus symptoms. Lactate WB 2.1 0.5 - 2.2 mmol/L [facility] Blood specimen (specimen) 07/13/2017 10:35 AM EDT 07/13/2017 10:35 AM EDT Sriram Contreras MD POINT OF CARE TEST ORDERABLES [facility] [place] [address] * ABORH Recheck Status (07/13/2017 6:27 AM EDT) ABORH Recheck Order Order Placed [facility] ABORH Type Recheck Complete [facility] Blood specimen (specimen) 07/13/2017 6:27 AM EDT 07/13/2017 6:38 AM EDT Narrative Resulting Agency Comment Spec In Lab Sriram Contreras MD BLOOD BANK LAB ORD ERABLES Performing Organization Address [facility] Co de Phone Number [facility] [place] [address] * Antibody screen (07/13/2017 6:27 AM EDT) Ab Screen Interp Negative [facility] Expires at [id number] on: 07/16/2017 [facility] Blood specimen (specimen) 07/13/2017 6:27 AM EDT 07/13/2017 6:43 AM EDT Narrative Resulting Agency Comment Spec In Lab Sriram Contreras MD BLOOD BANK LAB ORD ERABLES Performing Organization Address [facility] Co de Phone Number [facility] [place] [address] * ABO/Rh Typing (07/13/2017 6:27 AM EDT) ABORH Type O Neg [facility] Blood specimen (specimen) 07/13/2017 6:27 AM EDT 07/13/2017 6:43 AM EDT Narrative Resulting Agency Comment Spec In Lab Sriram Contreras MD BLOOD BANK LAB ORD ERABLES Performing Organization Address [facility] Co de Phone Number [facility] [place] [address] documented in this encounter Visit Diagnoses Diagnosis [...] dose, Starting on 07/17/17 at 2144, Until Shabana 07/29/17 at 1535, [...] PRN, Starting on Wed07/13/17 at 1149, Until Shabana 07/29/17 at 1535, Intra-Operative (Intra-Procedure), Routine Given 07/13/2017 [...] Jv Valdez RN)213 (Given - Provider: Abeba Porter RN) 1022 (Given - Provider: Radha Colon RN [...] Valdez RN) 0922 (Given - Provider: Radha Colon, [...] Discontinued, Routine 0420 (Given - Provider: Abeba Porter RN) nystatin (MYCOSTATIN) 100,000 unit/mL oral suspension 500,000 Units 500,000 Units, Oral, 4 TIMES DAILY, First dose on Shabana 07/22/17 at 0900, Until Discontinued, Routine 1054 (Given - Provider: Jeannie Stiles RN)1330 (Given - Provider: Jeannie Stiles RN)1720 (Given - Provider: Jv Valdez, BRENNA)2054 (Given - Provider: Dixie Randhawa RN) 0935 (Given - Provider: Jv Valdez RN)1235 (Given - Provider: Jeannie Stiles RN)1700 (Given - Provider: Jeannie Stiles, BRENNA)2135 (Given - Provider: Abeba Porter RN) 0923 (Given - Provider: Radha Colon, RN)1321 (Given - Provider: Radha Colon RN) pantoprazole (PROTONIX) injection 40 mg(Linked Group 1) 40 mg, Intravenous, DAILY, First dose on Wed07/14/17 at 0900, Until Discontinued, Reconstitute with 10 mL of normal saline to a concentration of 4 mg/mL and infuse slowly over 2 minutes. , Routine 1054 (Given - Provider: Jeannie Stiles, BRENNA) 0935 (See Alternative - Provider: Jv Valdez, RN) 0923 (See Alternative - Provider: Radha Colon, RN) pantoprazole (PROTONIX) tablet 40 mg(Linked Group 1) 40 mg, Oral, DAILY, First dose on Wed07/14/17 at 0900, Until Discontinued, DO NOT CRUSH OR OPEN If unable to take PO, may give IV 1054 (See Alternative - Provider: Jeannie Stiles, BRENNA) 0935 (Given - Provider: Jv Valdez, RN) [...] Browne, BRENNA)0400 (New Bag - Provider: Lorna Browne RN)0800 (Stopped - Provider: Jeannie Stiles RN)1125 (New Bag - Provider: Jeannie Stiles, BRENNA)1525 (Stopped - Provider: Jeannie Stiles, BRENNA)1857 (New Bag - Provider: Jeannie Stiles RN) 0025 (Stopped - Provider: Dixie Randhawa RN) tamsulosin (FLOMAX) ER capsule 0.4 mg 0.4 mg, Oral, DAILY, First dose on Wed07/27/17 at 1400, Until Discontinued, DO NOT CRUSH OR OPEN, Routine 1330 (Given - Provider: Jeannie Stiles RN) 0935 (Given - Provider: Jv Valdez, RN) 0923 (Given - Provider: Radha Colon, RN) Continuous Medication Order 07/27/2017 07/28/2017 07/29/2017 [...] Embolism documented in this encounter Care Teams Wood Mill Supervisor Relationship Specialty Start Date End Date Jovon Sifuentes MD [address] [place] [address] PCP - General 09/30/10 09/10/21 documented as of this encounter
--- OUTSIDE RECORDS SUMMARY | 2024-08-28 12:57 | XMS_ITS | Encounter Summary ---
Author Organization [facility] [place] [address] Care Team Providers Care Dentist Attendant Name Role Phone Jovon Sifuentes MD Primary Care Provider [phone] Reason for Visit * Auth/Cert Specialty Diagnoses / Procedures Referred By Contac t Referred To Contact Diagnoses base of tongue cancer Procedures PRO LARYNGOSCOPY, DIRECT, DX, OP MICROSCOP PRO BIOPSY OROPHARYNX LARYNGOSCOPY, WITH MICROSCOPE (WRVU 2.57) BIOPSY, OROPHARYNX (WRVU 1.44) Referral ID Status Reason Start Date Expiration Date Visits Re quested Visits Authorized [id number] 1 1 Encounter Details Date Type Department Care Team (Late st Contact Info) Description 05/24/2017 9:28 AM EDT Anesthesia Event [place] [address] Brock Tang MD [facility] [place] [address] Joselito Hill MD [facility] [place] [address] Anesthesia Record Procedure Summary Procedure Name Responsible [...] 0836; metacarpal vein (top of hand), right; qvkd-sed-jyifpw catheter system; 20 gauge, 1 in length; [...] Tang MD - 05/24/2017 10:51 AM EDT [facility] Department of Anesthesiology Post-procedure Note Patient: Jose Bee Procedure Summary Date Anesthesia Start Anesthesia Stop Room / Location 05/24/[facility] Procedure Diagnosis Surgeon Responsible Provider LARYNGOSCOPY, MICROSCOPE, WITH BIOPSY (WRVU 3.55) (N/A Throat); BIOPSY, OROPHARYNX (WRVU 1.44) (N/AMouth) (base of tongue cancer) Zafar Madera MD Pouliot, Ryan C, MD All Anesthesia Providers: Anesthesiologist: Brock Tang MD Human Service Specialist: Joselito Hill MD Last (1hr) Vitals: BP (!) 128/92 (05/24/17 1032) Temp 35.9 ??C (96.6 ??F) (05/24/17 1032) Pulse 80 (05/24/17 1032) Resp 16 (05/24/17 1032) SpO2 96 % (05/24/17 1032) Patient Location: PACU/[facility] Level of Consciousness: Awake and Alert Pain [...] fibrillation March 2017: noted in ED in [facility]. Previously noted to be paroxysmal. No awareness. CHADS2-VASc=1 (age). Started on apixaban for PE ??? Acute pulmonary embolism March 2017: noted on CT in [facility]. RLL. Treated with apixaban ??? Benign prostatic hyperplasia ??? Lesion of tongue 2008: globus evaluation 2016: mass at base of right tongue noted in [facility]. Scheduled for bx. Delayed by development of [...] 10:20 AM EST Office [place] [address] Sriram Contreras MD [facility] [place] [address] 10/31/2024 1:30 PM EST Office Visit Hematology/Oncology at [address] [phone] Dmitry Bhatti MD [facility] [place] [address] Ellen Mcrae APRN [facility] [place] [address] 10/31/2024 2:00 PM EST Infusion Hematology Oncology at [address] [phone] documented as of this encounter Visit Diagnoses [...] PRN, Starting on Wed05/24/17 at 0938, Until Wed05/24/17 at 1051, Anesthesia Intra-op Given 05/24/2017 9:38 AM EDT 50 mg Given 05/24/2017 9:31 AM EDT 200 mg rocuronium (ZEMURON) multi-dose injection PRN, Starting on Wed05/24/17 at 0935, Until Wed05/24/17 at 1051, Anesthesia Intra-op, Routine Given 05/24/2017 9:35 AM EDT 60 mg documented in this encounter Care Teams Dentist Attendant Relationship Specialty Start Date End Date Jovon Sifuentes MD [address] [place] [address] PCP - General 09/30/10 09/10/21 documented as of this encounter
--- OUTSIDE RECORDS SUMMARY | 2024-08-28 12:57 | XMS_ITS | Encounter Summary ---
Author Organization [facility] Address [facility] [place] [address] Care Team Providers Care Instructional Support Technician Name Role Phone Jovon Sifuentes MD Primary Care Provider [phone] Reason for Visit * Consultation (Urgent) - Closed Specialty Diagnoses / Procedures Referred By Huma valladares Referred To Contact Hematology and Oncology Diagnoses Throat mass Zafar Madera MD [facility] [place] [address] [facility] Hem Onc [address] [place] [address] Referral ID Status Reason Start Date Expiration Date V isits Requested Visits Authorized [id number] Closed Consult, Test & Treat 04/07/2017 04/07/2018 1 1 Encounter Details Date Type Department Care Team (Late st Contact Info) Description 04/14/2017 10:00 AM EDT Office Visit Hematology [place] [phone] Geovanna Deleon MD [facility] [address] [place] [address] Other acute pulmonary embolism without [...] Deleon MD - 04/14/2017 10:00 AM EDT [facility] [place] [address] THROMBOSIS CONSULTATION DATE OF VISIT 04/14/2017 Patient [...] In 2007 he was seen by Dr. Madera for some sensation in throat. Back then, [...] with bleeding risk, he was referred to [facility] to see Dr. 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 Fevers/chills/sweats No Recent [...] 10:20 AM EST Office [place] [address] Sriram Contreras MD [facility] [place] [address] 10/31/2024 1:30 PM EST Office Visit Hematology/Oncology at [address] [phone] Dmitry Bhatti MD [facility] [place] [address] Ellen Mcrae APRN [facility] [place] [address] 10/31/2024 2:00 PM EST Infusion Hematology Oncology at [address] [phone] Scheduled Referrals Name Type Priority Associated Diagnoses Order Schedule Referral to Hematology and Oncology Outpatient Referral Routine Throat mass Ordered: 04/07/2017 documented as of this encounter Visit Diagnoses Diagnosis Other acute pulmonary embolism without acute cor pulmonale Pre-op evaluation Preoperative examination, unspecified Throat mass Swelling, mass, or lump in head and neck documented in this encounter Care Teams Instructional Support Technician Relationship Specialty Start Date End Date Jovon Sifuentes MD [address] [place] [address] PCP - General 09/30/10 09/10/21 documented as of this encounter
--- OUTSIDE RECORDS SUMMARY | 2024-08-28 12:57 | XMS_ITS | Encounter Summary ---
[place] [address] Care Team Providers Care Record Changer Name Role Phone Jovon Sifuentes MD Primary Care Provider [phone] Reason for Referral * Diagnostic Test (Routine) - Closed Specialty Diagnoses / Procedures Referred By Contac t Referred To Contact Radiology Diagnoses Cancer of base of tongue Procedures CT Neck Soft Tissue w Contrast (Generic) Sriram Contreras MD [facility] [place] [address] [facility] [place] [address] Referral ID Status Reason Start Date Expiration Date V isits Requested Visits Authorized [id number] Closed Specialty Service Requested 06/17/2017 06/17/2018 1 1 Reason for Visit * Reason Comments Establish Care Here to discuss surg daisy options like TORS for tonsil cancer Encounter Details Date Type Department Care Team (Late st Contact Info) Description 06/17/2017 4:40 PM EDT Office [place] [phone] Sriram Contreras MD [facility] [place] [address] Cancer of base of tongue [...] Contreras MD - 06/17/2017 4:40 PM EDT [facility] NEW [...] the [employer] and uploaded to the [employer] Prescription Clerk Lenses. Findings Nasal cavity normal Nasopharynx normal Oropharynx [...] 10:20 AM EST Office [place] [address] Sriram Contreras MD [facility] [place] [address] 10/31/2024 1:30 PM EST Office Visit Hematology/Oncology at [address] [phone] Dmitry Bhatti MD [facility] DR [place] [address] Ellen Mcrae APRN [facility] [place] [address] 10/31/2024 2:00 PM EST Infusion Hematology Oncology at [address] [phone] documented as of this encounter Procedures Procedure [...] guidance. Increased extent of neoplasm as describedabove. 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
--- OUTSIDE RECORDS SUMMARY | 2024-08-28 12:57 | XMS_ITS | Encounter Summary ---
Author Organization [facility] [place] [address] Care Team Providers Care Shopfitter Name Role Phone Jovon Sifuentes MD Primary Care Provider Encounter Details Date Type Department Care Team (Latest Contact Info) Description 03/18/2017 - 03/18/2017 11:59 PM EDT Hospital Encounter Radiology Library at [facility] [place] [address] Jovon Sifuentes MD [address] [place] [address] Pain Discharge Disposition: Home Social History Tobacco [...] 10:20 AM EST Office Visit Otolaryngology at [facility] [place] [phone] Sriram Contreras MD [facility] [place] [address] 10/31/2024 1:30 PM EST Office Visit Hematology/Oncology at [address] [phone] Dmitry Bhatti MD [facility] [place] [address] Ellen Mcrae APRN [facility] [place] [address] 10/31/2024 2:00 PM EST Infusion Hematology Oncology at [address] [phone] documented as of this encounter Procedures Procedure Name Priority Date/Time Associated Diagnosis Comments FILM LIBRARY STORAGE ONLY CT HEAD AND SPINE Routine 03/18/2017 12:00 AM EDT Pain documented in this encounter Results * Film Library- Storage Only CT Head And Spine (03/18/2017 12:00 AM EDT) Narrative [facility] - 03/18/2017 3:03 PM EDT This exam is for storage only and is auto-finalizing. Jovon Sifuentes MD [facility] FILM LIBRARY ORD ERABLES [place], [place] documented in this encounter Visit Diagnoses Diagnosis Pain Generalized pain documented in this encounter Care Teams Shopfitter Relationship Specialty Start Date End Date Jovon Sifuentes MD [address] [place] [address] PCP - General 09/30/10 09/10/21 documented as of this encounter
--- OUTSIDE RECORDS SUMMARY | 2024-08-28 12:57 | XMS_ITS | Encounter Summary ---
Author Organization [facility] Address [facility] [place] [address] Care Team Providers Care Medical Administrative Technician Name Role Phone Jovon Sifuentes MD Primary Care Provider [phone] Reason for Visit * Reason Comments Atrial Fibrillation * Consultation (Routine) - Closed Specialty Diagnoses / Procedures Referred By Contbela t Referred To Contact Cardiology Diagnoses A-fib,enlarged heart, pulmonary embolism Stressenger, GILLIAN Farmer [address] [place] [address] [facility] Cardiology [address] [place] [phone] Referral ID Status Reason Start Date Expiration Date V isits Requested Visits Authorized [id number] Closed Connection Center 04/07/2017 04/07/2018 1 1 Encounter Details Date Type Department Care Team (Late st Contact Info) Description 04/30/2017 10:40 AM EDT Office Visit Cardiology at [address] [phone] Kashmir Lr MD [facility] [place] [address] Other acute pulmonary embolism without [...] original note were not included. CARDIOVASCULAR MEDICINE [place] [address] Subjective Identification Jose Bee is a 66 y.o. patient of Jovon Sifuentes MD with the following cardiovascular issues: 1. Atrial fibrillation--- dx in 2014, aspirin changed to apixaban at time of PE 2. Pulmonary embolism--- March 2017. RLL. [facility]. 3. Cardiomegaly noted on CT in [facility]--- normal echo here April 2017 Comorbidities include KORI on CPAP, ED, elevated BMI, BPH, skin cancer on left scalp in late , and mass at base of right side of tongue. Lives with in [place], [place]. Interested in Civil War living history. 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 Friends with Dayron Cardoza, orthopedic surgeon in [place], [place]. Present Illness Seen today at the request of Dr. Sifuentes and Marleny Brewer [facility]. Several years ago noticed sensation in [...] compensated Given unprovoked nature and AF, favor keno terminal operator anticoagulation Encouraged gradual resumption of physical activity Preop evaluation Agree with plan for interrupting DOAC as outlined in note of Dr. Deleon of hematology No need for stress testing prior to surgery Low BP Asymptomatic. Normal cardiac function. No evidence of sepsis This appears to be constitutional Avoid BP lowering meds Follow up prn Kashmir Lr MD [facility] cc: ?? Jovon Sifuentes MD [address] / [place] [address] documented in this encounter Plan of Treatment Upcoming Encounters Date Type Department Care Team (Late st Contact Info) Description 09/18/2024 10:20 AM EST Office Visit [place] [address] Sriram Contreras MD [facility] [place] [address] 10/31/2024 1:30 PM EST Office Visit Hematology/Oncology at [address] [phone] Dmitry Bhatti MD [facility] DR HEMATOLOG[place] [address] Ellen Mcrae APRN [facility] [place] [address] 10/31/2024 2:00 PM EST Infusion Hematology Oncology at [address] [phone] documented as of this encounter Visit Diagnoses Diagnosis Other acute pulmonary embolism without acute cor pulmonale Persistent atrial fibrillation Atrial fibrillation Lesion of tongue Other specified conditions of the tongue documented in this encounter Care Teams Medical Administrative Technician Relationship Specialty Start Date End Date Jovon Sifuentes MD [address] [place] [address] PCP - General 09/30/10 09/10/21 documented as of this encounter
--- OUTSIDE RECORDS SUMMARY | 2024-08-28 12:57 | XMS_ITS | Encounter Summary ---
[place] [address] Care Team Providers Care Drug Abuse Program Coordinator Name Role Phone Jovon Sifuentes MD Primary Care Provider [phone] Reason for Visit * Auth/Cert Specialty Diagnoses [...] Expiration Date Visits Re quested Visits Authorized [id number] 1 1 Encounter Details Date Type Department Care Team (Late st Contact Info) Description 07/13/2017 8:03 AM EDT Anesthesia Event [facility] [place] [address] Jane Quezada MD [facility] [place] [address] Karla Chavarria CRNA [facility] [place] [address] Anesthesia Record Procedure Summary Procedure Name Responsible [...] 17.8 BE -8.5 Hb 15.1 K 4.53 [id number] Lactate 2.9 1611 Quick Note Muscle relaxati [...] 0836; metacarpal vein (top of hand), right; npxw-spe-qpsclv catheter system; 20 gauge, 1 in length; [...] to dependent drainage; urethral catheter removed; 07/26/17; 170107/13/17 08 by Pita Banuelos RN 07/26/171701 by Polly Payne ETT Mask Ventilation: Ea sy (1); ETT Type: Cuffed, Nasal, SANTIAGO; ETT Size: 7.5 mm; Mac Blade: 4; Indirect: Video; Notes: Asleep, Pre-O2, Stylette; Attempts: 2; Laryngoscopy Grade: 2; ETT Placement Verified By: Auscultation, Capnometry, Visual; Inserted by: Karla Chavarria CRNA; Removal Date: 07/17/17; Removal Time: 1034 07/13/17 0815 by Karla Chavarria CRNA 07/17/17 1034 by Miguelina Puente RT Arterial Line 07/13/17; 0842; radi al artery, right; 20 gauge; Karla Chavarria CRNA; Sterile Prep, Sterile Gloves; catheter not patent, catheter intact; 07/18/17; 201407/13/17 0842 by Karla Chavarria CRNA 07/18/172014 by Arely Iqbal RN (RETIRED) Peripheral IV Line - Single Lumen 07/13/17; 0850; median vein (underside of arm), left; gidn-hjz-xcmvpo catheter system; 18 gauge; Burchman; removed inadvertently, catheter/device intact; 07/20/17; 0200 07/13/17 0850 by Karla Chavarria CRNA 07/20/17 0200 by Shannon Toribio RN NG/OG [...] Quezada MD - 07/14/2017 9:11 PM EDT [facility] Department of Anesthesiology Post-procedure Note Patient: Jose Anaya [place] Procedure Summary Date Anesthesia Start Anesthesia Stop Room / Location 07/13/17 0803 194 [facility] 2 / [facility] Procedure Diagnosis Surgeon Responsible Provider [...] Anesthesiologist: Giovanni Yanez MD; Jane Quezada MD INVENTORY ACCOUNTANT: Karla Chavarria CRNA Last (1hr) Vitals: BP Temp Pulse Resp SpO2 Patient Location: PACU/[facility] Level of Consciousness: Sedated (Pharmacologic/Intentional) Pain [...] MD Report given to ICU charge and glass deposition tender. I took over last hour of case, [...] Diagnosis ??? Head and neck cancer ??? KROI on CPAP ??? Adult BMI 30+ ??? [...] Date ??? ACHILLES TENDON SURGERY Right 1996 [facility] ??? KNEE ARTHROSCOPY christ[place]. [facility] ??? PRO BIOPSY OROPHARYNX N/A 05/24/2017 BIOPSY, OROPHARYNX (WRVU 1.44) performed by Zafar Madera MD at [facility] MAIN OR ??? PRO LARYNGOSCOPY, DIRCT, OP SCOPE, BIOPSY N/A 05/24/2017 LARYNGOSCOPY, MICROSCOPE, WITH BIOPSY (WRVU 3.55) performed by Zafar Madera MD at [facility] MAIN OR ??? QUADRACEPS TENDON REPAIR Right 04/2016 [facility] ??? TONSILLECTOMY Social History Substance Use [...] 10:20 AM EST Office [place] [address] Sriram Contreras MD [facility] [place] [address] 10/31/2024 1:30 PM EST Office Visit Hematology/Oncology at [address] [phone] Dmitry Bhatti MD [facility] DR [place] [address] Ellen Mcrae APRN [facility] [place] [address] 10/31/2024 2:00 PM EST Infusion Hematology Oncology at [address] [phone] documented as of this encounter [...] on Wed07/13/17 at 0813, Until Wed07/13/17 at 1949, Pain, Anesthesia Intra-op, Routine Given 07/13/2017 8:13 AM EDT 100 mcg HYDROmorphone (DILAUDID) injection PRN, Starting on Wed07/13/17 at 0936, Until Wed07/13/17 at 1949, Pain, Anesthesia Intra-op, Routine Given 07/13/2017 6:25 [...] on Wed07/13/17 at 0859, Until Wed07/13/17 at 194, Anesthesia Intra-op New Bag 07/13/2017 11:30 AM E DT New Bag 07/13/2017 8:59 AM EDT meTOPROLOL (LOPRESSOR) injection PRN, Starting on Wed07/13/17 at 1002, Until Wed07/13/17 at 194, High Blood Pressure, Anesthesia Intra-op, Routine Given [...] on Wed07/13/17 at 0759, Until Wed07/13/17 at 194, Anesthesia Intra-op, Routine Given 07/13/2017 7:59 AM EDT 160 mcg Given 07/13/2017 7:57 AM EDT 160 mcg Given 07/13/2017 7:55 AM EDT 160 mcg propofol (DIPRIVAN) 10 mg/mL bolus injection (Anesthesia) PRN, Starting on Wed07/13/17 at 0810, Until Wed07/13/17 at 194, Anesthesia Intra-op Given 07/13/2017 8:20 AM EDT 100 mg Given 07/13/2017 8:12 AM EDT 100 mg Given 07/13/2017 8:10 AM EDT 200 mg propofol (DIPRIVAN) infusion CONTINUOUS PRN, Starting on Wed07/13/17 at 1915, Until Wed07/13/17 at 194, Anesthesia Intra-op, Routine New Bag 07/13/2017 7:15 PM EDT 75 mcg/kg/min 60 mL/hr rocuronium (ZEMURON) multi-dose injection PRN, Starting on Wed07/13/17 at 1137, Until Wed07/13/17 at 194, Anesthesia Intra-op, Routine Given 07/13/2017 4:33 PM EDT 30 mg Given 07/13/2017 4:25 PM EDT 20 mg Given 07/13/2017 4:00 PM EDT 30 mg sodium chloride 0.9% infusion CONTINUOUS PRN, Starting on Wed07/13/17 at 1246, Until Wed07/13/17 at 194, Anesthesia Intra-op New Bag 07/13/2017 12:46 PM E DT sodium chloride 0.9% infusion CONTINUOUS PRN, Starting on Wed07/13/17 at 1223, Until Wed07/13/17 at 1949, Anesthesia Intra-op New Bag 07/13/2017 2:08 PM ED T New Bag 07/13/2017 12:23 PM EDT documented in this encounter Care Teams Drug Abuse Program Coordinator Relationship Specialty Start Date End Date Jovon Sifuentes MD [address] [place] [address] PCP - General 09/30/10 09/10/21 documented as of this encounter
--- OUTSIDE RECORDS SUMMARY | 2024-08-28 12:57 | XMS_ITS | Encounter Summary ---
Author Organization [facility] [place] [address] Care Team Providers Care Tuber Operator Name Role Phone Jovon Sifuentes MD Primary Care Provider Encounter Details Date Type Department Care Team (Late st Contact Info) Description 05/03/2017 Telephone [place] [phone] Rosa Buitrago Social History Tobacco Use Types [...] 10:20 AM EST Office [place] [phone] Sriram Contreras MD [facility] [place] [address] 10/31/2024 1:30 PM EST Office Visit Hematology/Oncology at [address] [phone] Dmitry Bhatti MD [facility] DR HEMATOLOGY [place] [address] Ellen Mcrae APRN [facility] [place] [address] 10/31/2024 2:00 PM EST Infusion Hematology Oncology at [address] [phone] documented as of this encounter Visit Diagnoses Not on filedocumented in this encounter Care Teams Tuber Operator Relationship Specialty Start Date End Date Jovon Sifuentes MD [address] [place] [address] PCP - General 09/30/10 09/10/21 documented as of this encounter
--- OUTSIDE RECORDS SUMMARY | 2024-08-28 12:57 | XMS_ITS | Encounter Summary ---
[place] [address] Care Team Providers Care Manager Hospital Name Role Phone Jovon Sifuentes MD Primary Care Provider [phone] Encounter Details Date Type Department Care Team (Late st Contact Info) Description 06/21/2017 Telephone [place] [phone] Rhianna Page RN Social History Tobacco Use [...] Miscellaneous Notes * Telephone Encounter - Rhianna Pgae, BRENNA - 06/21/2017 9:33 AM EDT Patient of [...] 10:20 AM EST Office [place] [address] Sriram Contreras MD [facility] [address] 10/31/2024 1:30 PM EST Office Visit Hematology/Oncology at [address] [phone] Dmitry Bhatti MD [facility] DR HEMATOLOGY [place] [address] Ellen Mcrae APRN [facility] [place] [address] 10/31/2024 2:00 PM EST Infusion Hematology Oncology at [address] [phone] documented as of this encounter Visit Diagnoses Not on filedocumented in this encounter Care Teams Manager Hospital Relationship Specialty Start Date End Date Jovon Sifuentes MD [address] [place] [address] PCP - General 09/30/10 09/10/21 documented as of this encounter
--- OUTSIDE RECORDS SUMMARY | 2024-08-28 12:57 | XMS_ITS | Encounter Summary ---
Author Organization [facility] [address] Care Team Providers Care Control Clerk Food And Beverage Name Role Phone Jovon Sifuentes MD Primary Care Provider Encounter Details Date Type Department Care Team (Late st Contact Info) Description 06/28/2017 Telephone [place] [address] Sriram Contreras MD [facility] [place] [address] Social History Tobacco Use Types Packs/Day Years [...] 10:20 AM EST Office [place] [address] Sriram Contreras MD [facility] [address] 10/31/2024 1:30 PM EST Office Visit Hematology/Oncology at [address] [phone] Dmitry Bhatti MD [facility] [place] [address] Ellen Mcrae APRN [facility] [place] [address] 10/31/2024 2:00 PM EST Infusion Hematology Oncology at [address] [phone] documented as of this encounter Visit Diagnoses Not on filedocumented in this encounter Care Teams Control Clerk Food And Beverage Relationship Specialty Start Date End Date Jovon Sifuentes MD [address] [place] [address] PCP - General 09/30/10 09/10/21 documented as of this encounter
--- OUTSIDE RECORDS SUMMARY | 2024-08-28 12:57 | XMS_ITS | Encounter Summary ---
Author Organization [facility] Address [facility] [place] [address] Care Team Providers Care Milk Bottling Machine Operator Name Role Phone Jovon Sifuentes MD Primary Care Provider [phone] Reason for Visit * Consultation (Routine) - Closed Specialty Diagnoses / Procedures Referred By Huma t Referred To Contact Radiation Oncology Diagnoses Cancer of base of tongue Zafar Madera MD [facility] [address] [facility] [place] [address] Referral ID Status Reason Start Date Expiration Date V isits Requested Visits Authorized [id number] Closed Consult, Test & Treat 04/27/2017 04/27/2018 1 1 Encounter Details Date Type Department Care Team (Late st Contact Info) Description 06/03/2017 1:00 PM EDT Office [place] [phone] Clement Sanchez MD [facility] [place] [address] Carcinoma of base of tongue [...] Wednesday 8 AM to 5 PM for [facility] for [facility] If you have questions about your radiation [...] in injury A Radiation Oncology doctor is slot machine department floorperson after our normal hours and on weekends. To call for urgent medical issues from radiation treatments that can not wait until normal business hours, please call and have the electric freight car operator page the Radiation Oncologist slot machine department floorperson. documented in this encounter Progress Notes * [...] if 4 or above SOCIAL ASSESSMENT: See [facility] social assessment information entered. Support Systems: Briana, Spouse Barriers to treatment: Prefer Tx in [facility] Referrals/Interventions: Dr. Dos Santos & Dr. Madera [...] in the section of Radiation Oncology at [facility] regarding his HN Cancer cancer ONCOLOGIC HISTORY [...] Date ??? ACHILLES TENDON SURGERY Right [place] [facility] ??? KNEE ARTHROSCOPY christelle. [facility] ??? PRO BIOPSY OROPHARYNX N/A 05/24/2017 BIOPSY, OROPHARYNX (WRVU 1.44) performed by Zafar Madera MD at [facility] MAIN OR ??? PRO LARYNGOSCOPY, DIRCT, OP SCOPE, BIOPSY N/A 05/24/2017 LARYNGOSCOPY, MICROSCOPE, WITH BIOPSY (WRVU 3.55) performed by Zafar Madera MD at [facility] MAIN OR ??? QUADRACEPS TENDON REPAIR Right 04/2016 [facility] ??? TONSILLECTOMY Social History Social History ??? Marital status: Spouse name: Briana ??? Number of children: 4 ??? 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 He is to Briana for 40 yrs. 4 children - All live in different states - One Kathleen Enjoys raising Beef Cattle and doing Civil War and Living History and shoot Black powder/Antique firearms. He enjoys builiding Firearms/Blacksmithing - [place]coal, [place], etc. No family history on file. ROS: [...] for TORS. he has been discussed at [facility] tumor board and it wasrecommended that either option is appropriate.These recommendations are in line with NCCN recommendations. We discussed the rationale, logistics (including simulation, planning, and treatment) and efficacy of definitive radiotherapy. We discussed the risks of therapy, including but not limited to short term sequelae (fatigue, skin erythema, mucositis, dysphagia, ageusia, xerostomia, weight loss) and senior living sequelae (tissue fibrosis, lymphedema, intermediate card tender dysphagia potentially requiring a permanent feeding tube, [...] Prophylactic feeding tube: not indicated Referral to Oceanographer Physical / FUNCTIONAL MENTAL DISABILITY TEACHER Dental Issues: to be cleared, instructions given OTHER ISSUES Pulmonary Embolus: continue anticoagulation documented in this encounter Plan of Treatment Upcoming Encounters Date Type Department Care Team (Late st Contact Info) Description 09/18/2024 10:20 AM EST Office [place] [address] Sriram Contreras MD [facility] [place] [address] 10/31/2024 1:30 PM EST Office Visit Hematology/Oncology at [address] [phone] Dmitry Bhatti MD [facility] DR [place] [address] Ellen Mcrae APRN [facility] [place] [address] 10/31/2024 2:00 PM EST Infusion Hematology Oncology at [address] [phone] Scheduled Referrals Name Type Priority Associated Diagnoses Orde r Schedule Referral to Radiation Oncology Outpatient Referral Routine Cancer of base of tongue Ordered: 04/27/2017 documented as of this encounter Visit Diagnoses Diagnosis Carcinoma of base of tongue Malignant neoplasm of base of tongue documented in this encounter Care Teams Milk Bottling Machine Operator Relationship Specialty Start Date End Date Jovon Sifuentes MD [address] [place] [address] PCP - General 09/30/10 09/10/21 documented as of this encounter
--- OUTSIDE RECORDS SUMMARY | 2024-08-28 12:57 | XMS_ITS | Encounter Summary ---
Author Organization [facility] [place] [address] Care Team Providers Care Engine Repairer Name Role Phone Jovon Sifuentes MD Primary Care Provider [phone] Encounter Details Date Type Department Care Team (Late st Contact Info) Description 06/03/2017 [place] [address] Jeannie Arteaga MSW CARE MANAGEMENT Social History [...] MSW - 06/03/2017 3:12 PM EDT Continuing Sign Erector - Social Work Note: MANAGER SALES TRAINING met with pt to introduce self/role, assess psychosocial needs, and provide resource referrals/support as needed. Pt denies any concerns about insurance, finances, transportation, or community resources at this time. Pt explained that current priority is sorting out medical plan of care. MANAGER SALES TRAINING informed pt as to [facility]- role and availability for any needs/questions that arise as the plan of care continues to evolve. Pt met with radiation oncology, medical oncology, and ENT surgeon today; they received a lot of information. Plan of care still undecided (between radiation vs. Surgery). If pt pursues radiation, it would be in [facility], closer to home. No further SW intervention planned at this time, however, I am available for ongoing support and resource referral, as needed Pager [phone] documented in this encounter Plan of Treatment Upcoming Encounters Date Type Department Care Team (Late st Contact Info) Description 09/18/2024 10:20 AM EST Office Visit [place] [address] Sriram Contreras MD [facility] [place] [place] [address] 10/31/2024 1:30 PM EST Office Visit Hematology/Oncology at [address] [phone] Dmitry Bhatti MD [facility] [place] [address] Ellen Mcrae APRN [facility] [place] [address] 10/31/2024 2:00 PM EST Infusion Hematology Oncology at [address] [phone] documented as of this encounter Visit Diagnoses Not on filedocumented in this encounter Care Teams Engine Repairer Relationship Specialty Start Date End Date Jovon Sifuentes MD [address] [place] [address] PCP - General 09/30/10 09/10/21 documented as of this encounter
--- OUTSIDE RECORDS SUMMARY | 2024-08-28 12:57 | XMS_ITS | Encounter Summary ---
[place] [address] Care Team Providers Care Commodity Merchant Name Role Phone Jovon Sifuentes MD Primary Care Provider Reason for Referral * Diagnostic Test (Routine) - Closed Specialty Diagnoses / Procedures Referred By Contac t Referred To Contact Cardiology Diagnoses Atrial fibrillation, unspecified type Cardiomegaly Pulmonary infarction Procedures Echocardiogram Transthoracic(Leb) Jovon Sifuentes MD [address] [place] [address] [facility] [place] [address] Referral ID Status Reason Start Date Expiration Date V isits Requested Visits Authorized [id number] Closed Specialty Service Requested 04/07/2017 04/07/2018 1 1 Reason for Visit * Diagnostic Test (Routine) - Closed Specialty Diagnoses / Procedures Referred By Contac t Referred To Contact Cardiology Diagnoses Atrial fibrillation, unspecified type Cardiomegaly Pulmonary infarction Procedures Echocardiogram Transthoracic(Leb) Jovon Sifuentes MD [address] [place] [address] [facility] [place] [address] Referral ID Status Reason Start Date Expiration Date V isits Requested Visits Authorized [id number] Closed Specialty Service Requested 04/07/2017 04/07/2018 1 1 Encounter Details Date Type Department Care Team (Latest Contact Info) Description 04/30/2017 8:23 AM EDT - 04/30/2017 11:59 PM EDT Hospital Encounter [place] [address] Atrial fibrillation, unspecified type; Cardiomegaly; Pulmonary infarction [...] 10:20 AM EST Office [place] [address] Sriram Contreras MD [facility] [place] [address] 10/31/2024 1:30 PM EST Office Visit Hematology/Oncology at [address] [phone] Dmitry Bhatti MD [facility] HEMATOLOGY [place] [address] Ellen Mcrae, [facility] [place] [address] 10/31/2024 2:00 PM EST Infusion Hematology Oncology at [address] [phone] documented as of this encounter Procedures Procedure Name Priority Date/Time Associated Diagnosis Comments ECHO COMPLETE W CONTRAST Routine 04/30/2017 9:26 AM EDT Atrial fibrillation, unspecified type Cardiomegaly Pulmonary infarction documented in this encounter Results * ECHO COMPLETE W CONTRAST (04/30/2017 9:26 AM EDT) EF 60 HEARTTwitmusic SYSTEM Anatomical Region Laterality Modality Other 04/30/2017 Narrative 04/30/2017 9:43 AM EDT Procedure: ?Transthoracic Echocardiogram Patient: ?EUSEBIA Anaya ?? (Age): 1950(66y) Med Rec#: ? [id number] ?Sex: ?M ? Site Loc: ? [facility] ?Ht / Wt: ??193(cm)/139(kg) Pt. Loc: ?Echo Lab ?BSA: ?2.66 Study Date: ?? 04/30/2017 ?Pt. Type: Outpatient Tape: ? Referring: Jovon Sifuentes Referring: Kashmir Lr ([id number]) Reading: Russ Weber ([id number]) Certified Control Systems Technician: Marysol Zavala BA, [facility] Diagnosis: *ICD-10-PCS Unspecified atrial fibrillation (I48.91) *ICD-10-PCS Cardiomegaly (I51.7) CPT Codes: *Lizbeth (76251SF) Rhythm: ? A-Fib BP: ? 121/71 SUMMARY: [...] ? Pulmonic Valve/Qp:Qs ?Value ?Units (Range) ? ME end-diastolic Vma0.8 ?m/sec ? Measurement Trending Name [...] ? Mid-Inferior ?Normal ? Mid-Inferoseptal ?Normal ? Nancy-Septal ? Normal ? Nancy-Anterior ? Normal ? Nancy-Lateral ?Normal ? Nancy-Inferior ? Normal ? Nancy-Tip ?Normal ? This report has been electronically signed by: Russ Weber MD ? 04/30/2017 09:43:10 Images reviewed and interpretation verified [facility] Cardiac Ultrasound Laboratory Procedure Note Russ Weber MD - 04/30/2017 Procedure: Transthoracic Echocardiogram Patient: EUSEBIA Anaya (Age): 1950(66y) Med Rec#: [id number] Sex: M Site Loc: [facility] Ht / Wt: 193(cm)/139(kg) Pt. Loc: Echo Lab BSA: 2.66 Study Date: 04/30/2017 Pt. Type: Outpatient Tape: Referring: Jovon Sifuentes Referring: Kashmir Lr ([id number]) Reading: Russ Weber ([id number]) Certified Control Systems Technician: Marysol Zavala BA, [facility] Diagnosis: *ICD-10-PCS Unspecified atrial fibrillation (I48.91) *ICD-10-PCS Cardiomegaly (I51.7) CPT Codes: *Optison ([id number]) Rhythm: A-Fib BP: 121/71 SUMMARY: 1. The [...] 2 cm Pulmonic Valve/Qp:Qs Value Units (Range) ME end-diastolic Vma0.8 m/sec Measurement Trending Name 04/30/2017 LV EDV BP 161 LVIDd (2D) 4.58 LV ESV BP 64 LA ESV BP (MOD) 120 LVIDs (2D) 3.23 Wall Motion: Segment Name Rest Base-Anteroseptal Normal Base-Anterior Normal Base-Anterolateral Normal Base-Posterolateral Normal Base-Inferior Normal Base-Inferoseptal Normal Mid-Anteroseptal Normal Mid-Anterior Normal Mid-Anterolateral Normal Mid-Posterolateral Normal Mid-Inferior Normal Mid-Inferoseptal Normal Nancy-Septal Normal Nancy-Anterior Normal Nancy-Lateral Normal Nancy-Inferior Normal Nancy-Tip Normal This report has been electronically signed by: Russ Weber MD 04/30/2017 09:43:10 Images reviewed and interpretation verified [facility] Cardiac Ultrasound Laboratory Jovon Sifuentes MD ECHO ORDERABLES documented in this encounter Visit Diagnoses Diagnosis Atrial fibrillation, unspecified type Cardiomegaly Pulmonary infarction Other pulmonary embolism and infarction documented in this encounter Care Teams Commodity Merchant Relationship Specialty Start Date End Date Jovon Sifuentes MD [address] [place] [address] PCP - General 09/30/10 09/10/21 documented as of this encounter
--- OUTSIDE RECORDS SUMMARY | 2024-08-28 12:57 | XMS_ITS | Encounter Summary ---
Author Organization [facility] [place] [address] Care Team Providers Care Commercial Drone Pilot Name Role Phone Jovon Sifuentes MD Primary Care Provider Encounter Details Date Type Department Care Team (Late st Contact Info) Description 04/09/2017 Telephone [place] [phone] Vane Cardona Social History Tobacco Use Types [...] 10:20 AM EST Office [place] [phone] [facility] [place] [address] 10/31/2024 1:30 PM EST Office Visit Hematology/Oncology at [address] [phone] [facility] DR [place] [address] [facility] [place] [address] 10/31/2024 2:00 PM EST Infusion Hematology Oncology at [address] [phone] documented as of this encounter Visit Diagnoses Not on filedocumented in this encounter Care Teams Commercial Drone Pilot Relationship Specialty Start Date End Date Jovon Sifuentes MD [address] [place] [address] PCP - General 09/30/10 09/10/21 documented as of this encounter
--- OUTSIDE RECORDS SUMMARY | 2024-08-28 12:57 | XMS_ITS | Encounter Summary ---
Author Organization [facility] [place] [address] Care Team Providers Care Circular Stuffer Name Role Phone Jovon Sifuentes MD Primary Care Provider Encounter Details Date Type Department Care Team (Late st Contact Info) Description 04/29/2017 Telephone [place] [phone] Vane Cardona Social History Tobacco Use Types [...] 10:20 AM EST Office [place] [phone] [facility] [place] [address] 10/31/2024 1:30 PM EST Office Visit Hematology/Oncology at [address] [phone] [facility] DR [place] [address] [facility] [place] [address] 10/31/2024 2:00 PM EST Infusion Hematology Oncology at [address] [phone] documented as of this encounter Visit Diagnoses Not on filedocumented in this encounter Care Teams Circular Stuffer Relationship Specialty Start Date End Date Jovon Sifuentes MD [address] [place] [address] PCP - General 09/30/10 09/10/21 documented as of this encounter
--- OUTSIDE RECORDS SUMMARY | 2024-08-28 12:57 | XMS_ITS | Encounter Summary ---
Author Organization Formerly [facility] [place] [address] Care Team Providers Care Stencil Sprayer Name Role Phone Jovon Sifuentes MD Primary Care Provider [phone] Reason for Visit * Auth/Cert Specialty Diagnoses / Procedures Referred By Huma t Referred To Contact Diagnoses base of tongue cancer Procedures PRO LARYNGOSCOPY, DIRECT, DX, OP MICROSCOP PRO BIOPSY OROPHARYNX LARYNGOSCOPY, WITH MICROSCOPE (WRVU 2.57) BIOPSY, OROPHARYNX (WRVU 1.44) Referral ID Status Reason Start Date Expiration Date Visits Re quested Visits Authorized [id number] 1 1 Encounter Details Date Type Department Care Team (Late st Contact Info) Description 05/24/2017 8:58 AM EDT - 05/24/2017 10:26 AM EDT Surgery [place] [address] Keiko Madera MD [facility] [place] [address] LARYNGOSCOPY, MICROSCOPE, WITH BIOPSY (WRVU 3.55) Social [...] the next week, call the clinic at [phone] to confirm your appointment, or for questions or concerns post-operatively. Future Appointments Date Time Provider Department Center 06/03/2017 10:00 AM Kaiden Dos Santos MD [facility] 06/03/2017 12:30 PM RADIATION ONCOLOGY, NURSE Sushma Rad Off [facility] 06/03/2017 1:00 PM Clement Sanchez MD [facility] 06/03/2017 2:00 PM Keiko Madera MD [facility] Ronald [facility] 08/30/2017 1:30 PM Geovanna Deleon MD [facility] Contact numbers: Contact Information ENT triage nurse ENT doctor salesperson handbags [phone] (after hours) documented in this encounter Medications [...] Madera MD - 05/24/2017 10:22 AM EDT [facility] Operative Note Patient Name: Jose Bee : [id number] MR#: [id number] Case Date: 05/24/2017 Surgeon: Surgeon(s) and Role: [...] 10:20 AM EST Office [place] [address] Sriram Contreras MD [facility] [place] [address] 10/31/2024 1:30 PM EST Office Visit Hematology/Oncology at [address] [address] Dmitry Bhatti MD [facility] DR HEMATOLOGY [place] [address] Ellen Mcrae APRN [facility] DR [place] [address] 10/31/2024 2:00 PM EST Infusion Hematology Oncology at [address] [address] documented as of this encounter [...] AM EDT 05/24/2017 10:09 AM EDT Narrative [facility] - 05/24/2017 10:09 AM EDT Specimen requisition ordered. ??Separate Pathology report to follow Keiko Madera MD PATHOLOGY/CYTOLOGY ORDERABLES Performing Organization Address City/[facility]/ZIP Co de Phone Number [facility] [place] [address] * Specimen to Pathology (surgical or derm) (05/24/2017 10:09 AM EDT) AP Specimen 05/24/2017 10:0 9 AM EDT 05/24/2017 10:09 AM EDT Narrative [facility] - 05/24/2017 10:09 AM EDT Specimen requisition ordered. ??Separate Pathology report to follow Keiko Madera MD PATHOLOGY/CYTOLOGY ORDERABLES Performing Organization Address [facility]/[place] [address] * Specimen to Pathology (surgical or derm) (05/24/2017 10:08 AM EDT) AP Specimen 05/24/2017 10:0 8 AM EDT 05/24/2017 10:08 AM EDT Narrative [facility] - 05/24/2017 10:08 AM EDT Specimen requisition ordered. ??Separate Pathology report to follow Keiko Madera MD PATHOLOGY/CYTOLOGY ORDERABLES Performing Organization Address City/[facility]/[place] [address] * Specimen to Pathology (surgical or derm) (05/24/2017 10:08 AM EDT) AP Specimen 05/24/2017 10:0 8 AM EDT 05/24/2017 10:08 AM EDT Narrative [facility] - 05/24/2017 10:08 AM EDT Specimen requisition ordered. ??Separate Pathology report to follow Keiko Madera MD PATHOLOGY/CYTOLOGY ORDERABLES Performing Organization Address [facility] [place] [address] * Specimen to Pathology (surgical or derm) (05/24/2017 10:08 AM EDT) AP Specimen 05/24/2017 10:0 8 AM EDT 05/24/2017 10:08 AM EDT Narrative [facility] - 05/24/2017 10:08 AM EDT Specimen requisition ordered. ??Separate Pathology report to follow Keiko Madera MD PATHOLOGY/CYTOLOGY ORDERABLES Performing Organization Address City/[facility]/[place] [address] * Specimen to Pathology (surgical or derm) (05/24/2017 10:08 AM EDT) AP Specimen 05/24/2017 10:0 8 AM EDT 05/24/2017 10:08 AM EDT Narrative [facility] - 05/24/2017 10:08 AM EDT Specimen requisition ordered. ??Separate Pathology report to follow Keiko Madera MD PATHOLOGY/CYTOLOGY ORDERABLES Performing Organization Address City/[facility]/ZIP Co de Phone Number [facility] [place] [address] * Specimen to Pathology (surgical or derm) (05/24/2017 10:08 AM EDT) AP Specimen 05/24/2017 10:0 8 AM EDT 05/24/2017 10:08 AM EDT Narrative [facility] - 05/24/2017 10:08 AM EDT Specimen requisition ordered. ??Separate Pathology report to follow Keiko Madera MD PATHOLOGY/[place] [address] * Surgical Pathology Report (05/24/2017 10:07 AM EDT) Final Diagnosis [id number] ?Location: [facility]; A The signing pathologist has (i) examined [...] developed and its performance determined by the [facility] laboratory for Clinical Genomics and Advanced Technology (CGAT). It has not been cleared or approved by the U.S. Food and Drug Administration. This test is used for clinical purposes and should not be considered as investigational or for research purposes. The [facility] is certified by the Clinical Laboratory Improvement Act of 1988 and as such is allowed to perform high complexity clinical testing. References: ?? Ila TW, Diego . Biochemistry 1991;30:6851-4664; aCsh NEWTONM, et al. J pathol 1999;189:12-19; [place] PE, et al. J Clin Microbiol 2000 ?;38 ??:357-361. Reviewed by: Roel Heredia, PhD, [facility], Director-[facility] ([facility], 06/04/17 08:23) Electronically signed by: ??Mey Lockwood [...] Sections/Processing: (T1) ??sns 06/07/2017 9:24 AM EDT [facility] BILATERAL PALATINE TONSILS / Unknown [...] Madera MD PATHOLOGY/CYTOLOGY ORDERABLES Performing Organization Address City/State/[facility] Co de Phone Number [facility] [place] [address] * Surgical Pathology Report (05/24/2017 10:07 AM EDT) Surgical Pathology Report [id number] ?Location: [facility]; A The signing pathologist has (i) examined [...] ??Soft, red tissues . Sections/Processing: (T1) ??sns [facility] 05/24/2017 10:0 7 AM EDT Keiko Madera MD PATHOLOGY/CYTOLOGY ORDERABLES [facility] [place] [address] documented in this encounter Visit Diagnoses Not [...] Procedure) 0845 (New Bag - Prov ider: Madsiyn Seals RN) PRN Medication Order 05/22/2017 05/23/2017 05/24/2017 acetaminophen (TYLENOL) 650 mg/20.3 mL oral liquid 650 mg 650 mg, Oral, EVERY 4 HOURS PRN, Starting on Wed05/24/17 at 1131, Until Wed05/24/17 at 1454, Fever, Maximum dose of acetaminophen is 4000 mg from all sources in 24 hours. , Recovery (Recovery-Hospital Unit), Routine 1136 (Given - Provid er: Cornina Cabrera RN) acetaminophen (TYLENOL) tablet 650 mg [...] MD) documented in this encounter Care Teams Stencil Sprayer Relationship Specialty Start Date End Date Jovon Sifuentes MD [address] [place] [address] PCP - General 09/30/10 09/10/21 documented as of this encounter
--- OUTSIDE RECORDS SUMMARY | 2024-08-28 12:57 | XMS_ITS | Encounter Summary ---
[place] [address] Care Team Providers Care Hands Parter Name Role Phone Jovon Sifuentes MD Primary Care Provider Encounter Details Date Type Department Care Team (Latest Contact Info) Description 06/02/2017 Multidisciplinary Ca re Committee [place]ematology [place] [address] Kaiden Dos Santos MD [address] [place] [address] [place] [address] Social History Tobacco Use Types Packs/Day Years [...] 10:20 AM EST Office [place] [address] Sriram Contreras MD [facility] [place] [address] 10/31/2024 1:30 PM EST Office Visit Hematology/Oncology at [address] [phone] Dmitry Bhatti MD [facility] HEMATOLOGY [place] [address] Ellen Mcrae APRN [facility] DR [place] [address] 10/31/2024 2:00 PM EST Infusion Hematology Oncology at [address] [phone] documented as of this encounter Visit Diagnoses Not on filedocumented in this encounter Care Teams Hands Parter Relationship Specialty Start Date End Date Jovon Sifuentes MD [address] [place] [address] PCP - General 09/30/10 09/10/21 documented as of this encounter
--- OUTSIDE RECORDS SUMMARY | 2024-08-28 12:57 | XMS_ITS | Encounter Summary ---
Author Organization [facility] [place] [address] Care Team Providers Care White Washer Piler Name Role Phone Jovon Sifuentes MD Primary Care Provider [phone] Encounter Details Date Type Department Care Team (Latest Contact Info) Description 03/26/2017 - 03/26/2017 11:59 PM EDT Hospital Encounter Radiology Library at [facility] [place] [address] Zafar Madera MD [facility] OTOLARYNG[place] [address] Pain Discharge Disposition: Home Social History Tobacco [...] AM EST Office Visit Otolaryngology at [facility] [place] [address] Sriram Contreras MD [facility] [place] [address] 10/31/2024 1:30 PM EST Office Visit Hematology/Oncology at [address] [phone] Dmitry Bhatti MD [facility] HEMATOLOGY [place] [address] Ellen Mcrae APRN [facility] [place] [address] 10/31/2024 2:00 PM EST Infusion Hematology Oncology at [address] [phone] documented as of this encounter Procedures Procedure Name Priority Date/Time Associated Diagnosis Comments FILM LIBRARY STORAGE ONLY CT ABDOMEN AND PELVIS Routine 03/26/2017 12:00 AM EDT Pain documented in this encounter Results * Film Library- Storage Only CT Abdomen & Pelvis (03/26/2017 12:00 AM EDT) Narrative [facility] - 04/15/2017 11:54 AM EDT This exam is for storage only and is auto-finalizing. Zafar Madera MD IMG FILM LIBRARY OR DERABLES Performing Organization Address City/State/[facility] Co de Phone Number [place], [place] documented in this encounter Visit Diagnoses Diagnosis Pain Generalized pain documented in this encounter Care Teams White Washer Piler Relationship Specialty Start Date End Date Jovon Sifuentes MD [address] [place] [address] PCP - General 09/30/10 09/10/21 documented as of this encounter
--- OUTSIDE RECORDS SUMMARY | 2024-08-28 12:57 | XMS_ITS | Encounter Summary ---
[place] [address] Care Team Providers Care Document Control Associate Name Role Phone Jovon Sifuentes MD Primary Care Provider [phone] Reason for Referral * Diagnostic Test (Routine) - Closed Specialty Diagnoses / Procedures Referred By Contac t Referred To Contact Radiology Diagnoses Other acute pulmonary embolism without acute cor pulmonale Carcinoma of base of tongue Procedures PET CT Standard Skull Base to Mid-Thigh Kaiden Dos Santos MD [facility] [place] [place] [address] [place] [address] Referral ID Status Reason Start Date Expiration Date V isits Requested Visits Authorized [id number] Closed Specialty Service Requested 06/10/2017 08/08/2017 2 2 Reason for Visit * Diagnostic Test (Routine) - Closed Specialty Diagnoses / Procedures Referred By Contac t Referred To Contact Radiology Diagnoses Other acute pulmonary embolism without acute cor pulmonale Carcinoma of base of tongue Procedures PET CT Standard Skull Base to Mid-Thigh Kaiden Dos Santos MD [facility] [place] [address] [place] [address] Referral ID Status Reason Start Date Expiration Date V isits Requested Visits Authorized [id number] Closed Specialty Service Requested 06/10/2017 08/08/2017 2 2 Encounter Details Date Type Department Care Team (Latest Contact Info) Description 06/17/2017 12:02 PM EDT Hospital Encounter [place] [address] Kaiden Dos Santos MD [address] [place] [address] [place] [address] Other acute pulmonary embolism without acute cor [...] 10:20 AM EST Office [place] [address] Sriram Contreras MD [facility] [place] [address] 10/31/2024 1:30 PM EST Office Visit Hematology/Oncology at [address] [phone] Dmitry Bhatti MD [facility] DR [place]AT[place] [address] Ellen Mcrae APRN [facility] [place] [address] 10/31/2024 2:00 PM EST Infusion Hematology Oncology at [address] [phone] documented as of this encounter Procedures Procedure [...] Thank you for referring this patient to [facility] PET Center. I have personally reviewed the image(s) and the residents interpretation and agree with the findings, Lizy Padgett at 06/17/2017 3:54 PM Narrative 06/17/2017 3:54 PM EDT EXAMINATION: PET CT STANDARD SKULL BASE TO MID-THIGH CLINICAL HISTORY: head/neck cancer, initial staging exam TECHNIQUE: Following IV injection of 26-kiyoid-1-deoxyglucose (FDG) a standard uptake of approximately 60 [...] staging exam TECHNIQUE: Following IV injection of 14-annhcd-2-deoxyglucose (FDG) astandard uptake of approximately 60 minutes, [...] Thank you for referring this patient to [facility] PET Center. I have personally reviewed the image(s) and the residents interpretationand agree with the findings, Lizy Padgett at 06/17/2017 3:54 PM Kaiden Dos Santos MD IMG PET ORDERABLES * POCT Glucose (06/17/2017 12:14 PM EDT) Glucose, POC 82 65 - 199 mg/dL [facility] Comment: Supplemental ranges: <140 mg/dL before meals <180 mg/dL all other times of the day Blood specimen (specimen) 06/17/2017 12:14 PM EDT 06/17/2017 12:14 PM EDT Kaiden Dos Santos MD POINT OF CARE TEST O RDERABLES [facility] [place] [address] documented in this encounter Visit Diagnoses Diagnosis [...] Arm documented in this encounter Care Teams Document Control Associate Relationship Specialty Start Date End Date Jovon Sifuentes MD [address] [place] [address] PCP - General 09/30/10 09/10/21 documented as of this encounter
--- OUTSIDE RECORDS SUMMARY | 2024-08-28 12:57 | XMS_ITS | Encounter Summary ---
Author Organization [facility] [place] [address] Care Team Providers Care Cushion Gum Applicator Name Role Phone Jovon Sifuentes MD Primary Care Provider [phone] Reason for Referral * Diagnostic Test (Routine) - Closed Specialty Diagnoses / Procedures Referred By Huma t Referred To Contact Radiology Diagnoses Other acute pulmonary embolism without acute cor pulmonale Carcinoma of base of tongue Procedures PET CT Standard Skull Base to Mid-Thigh Kaiden Dos Santos MD [facility] [place] [address] [place] [address] Referral ID Status Reason Start Date Expiration Date V isits Requested Visits Authorized [id number] Closed Specialty Service Requested 06/10/2017 08/08/2017 2 2 Reason for Visit * Reason Comments Schedule Office Case * Consultation (Routine) - Specialty Diagnoses / Procedures Referred By Huma t Referred To Contact Hematology and Oncology Diagnoses Cancer of base of tongue Zafar Madera MD [facility] [place] [address] [facility] [place] [address] [place] [address] Referral ID Status Reason Start Date Expiration Date V isits Requested Visits Authorized [id number] Consult, Test & Treat 04/27/2017 04/27/2018 1 1 Encounter Details Date Type Department Care Team (Late st Contact Info) Description 06/03/2017 10:00 AM EDT Office Visit Hematology and Oncology at [facility] [place] [address] Kaiden Dos Santos MD [address] [place] [address] [place] [address] Other acute pulmonary embolism without acute cor [...] the past few months.He presented to the [facility] with these throat symptoms as well as a more global problem of malaise, low-grade fevers, and cough; he was seen by Dr. Conrad in [facility] in March, where fullness in the right tongue base was noted. He was started on antibiotics, but simultaneously was found by CT scan to have right lower lobe pulmonary embolus and possible pneumonia, as well as atrial fibrillation. He was placed on anticoagulation; Dr. Conrad had planned on performing an exam under [...] about myocardial function Geographic issues: Lives in [facility]; the [facility] would be much more convenient for treatment [...] education: 17 Occupational History ??? 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 He is to Bri[place] for 40 yrs. 4 children - All live in different states - [place]. Enjoys raising Beef Cattle and doing Civil War and Living History and shoot Black powder/Antique firearms. He enjoys builiding Firearms/Blacksmithing - Charcoal, [place], etc. No family history on file. Outpatient [...] cancer, and the patient with a distant 11-anyt-ufys smoking history. This would give him a [...] Kaiden Dos Santos MD, FACP Hematology/Oncology Section [phone] Voice recognition software used for this note; please excuse mat weaver errors. documented in this encounter Plan of Treatment Upcoming Encounters Date Type Department Care Team (Late st Contact Info) Description 09/18/2024 10:20 AM EST Office [place] [address] Sriram Contreras MD [facility] [place] [address] 10/31/2024 1:30 PM EST Office Visit Hematology/Oncology at [address] [phone] Dmitry Bhatti MD [facility] [place] [address] Ellen Mcrae APRN [facility] [place] [place] [address] 10/31/2024 2:00 PM EST Infusion Hematology Oncology at [address] [phone] documented as of this encounter Results * [...] Thank you for referring this patient to [facility] PET Center. I have personally reviewed the image(s) and the residents interpretation and agree with the findings, Lizy Padgett at 06/17/2017 3:54 PM Narrative 06/17/2017 3:54 PM EDT EXAMINATION: PET CT STANDARD SKULL BASE TO MID-THIGH CLINICAL HISTORY: head/neck cancer, initial staging exam TECHNIQUE: Following IV injection of 45-mkciib-5-deoxyglucose (FDG) a standard uptake of approximately 60 [...] staging exam TECHNIQUE: Following IV injection of 86-hfinhr-3-deoxyglucose (FDG) astandard uptake of approximately 60 minutes, [...] Thank you for referring this patient to [facility] PET Center. I [...] tongue documented in this encounter Care Teams Cushion Gum Applicator Relationship Specialty Start Date End Date Jovon Sifuentes MD [address] [place] [address] PCP - General 09/30/10 09/10/21 documented as of this encounter
--- OUTSIDE RECORDS SUMMARY | 2024-08-28 12:57 | XMS_ITS | Encounter Summary ---
[place] [address] Care Team Providers Care Nozzle Worker Name Role Phone Jovon Sifuentes MD Primary Care Provider [phone] Encounter Details Date Type Department Care Team (Late st Contact Info) Description 06/21/2017 Telephone [place] [phone] Tremayne De León Social History Tobacco Use [...] 10:20 AM EST Office Visit [place] [phone] Sriram Contreras MD [facility] [place] [address] 10/31/2024 1:30 PM EST Office Visit Hematology/Oncology at [address] [phone] Dmitry Bhatti MD [facility] DR HEMATOLOGY [place] [address] Ellen Mcrae APRN [facility] [place] [address] 10/31/2024 2:00 PM EST Infusion Hematology Oncology at [address] [phone] documented as of this encounter Visit Diagnoses Not on filedocumented in this encounter Care Teams Nozzle Worker Relationship Specialty Start Date End Date Jovon Sifuentes MD [address] [place] [address] PCP - General 09/30/10 09/10/21 documented as of this encounter
--- OUTSIDE RECORDS SUMMARY | 2024-08-28 12:58 | XMS_ITS | Encounter Summary ---
Author Organization [facility] [place] [address] Care Team Providers Care Chemical Plant Worker Name Role Phone Jovon Sifuentes MD Primary Care Provider Encounter Details Date Type Department Care Team (Late Contact Info) Description 02/03/2011 3:30 PM EDT Office Visit Dermatology [address] [place] [address] Alex Diaz MD [address] [facility] [place] [address] Social History Tobacco Use Types Packs/Day Years Used Date Smoking Tobacco: Never Assessed Sex and Gender Information Value Date Recorded Sex Assigned at Not on file Gender Identity Not on file Sexual Orientation Not on file documented as of this encounter Plan of Treatment Upcoming Encounters Date Type Department Care Team (Late Contact Info) Description 09/18/2024 10:20 AM EST Office Visit [place] [address] Sriram Contreras MD [facility] [place] [address] 10/31/2024 1:30 PM EST Office Visit Hematology/Oncology at [address] [phone] Dmitry Bhatti MD [facility] [place] [address] Ellen Mcrae APRN [facility] [place] [address] 10/31/2024 2:00 PM EST Infusion Hematology Oncology at [address] [phone] documented as of this encounter Visit Diagnoses Not on filedocumented in this encounter Care Teams Chemical Plant Worker Relationship Specialty Start Date End Date Jovon Sifuentes MD [address] [place] [address] PCP - General 09/30/10 09/10/21 documented as of this encounter
--- OUTSIDE RECORDS SUMMARY | 2024-08-28 12:58 | XMS_ITS | Referral Summary ---
Author Organization [facility] Address [address] [place] [address] Care Team Providers Care Training Development Director Name Role Phone Jovon Sifuentes MD Primary Care Provider [phone] Social History Tobacco Use Types Packs/Day Years Used Date Smoking Tobacco: Never Assessed Sex and Gender Information Value Date Recorded Sex Assigned at Not on file Gender Identity Not on file Sexual Orientation Not on file Plan of Treatment Not on file Care Teams Training Development Director Relationship Specialty Start Date End Date Jovon Sifuentes MD [address] [place] [address] PCP - General 09/05/09
--- OUTSIDE RECORDS SUMMARY | 2024-08-28 12:58 | XMS_ITS | Encounter Summary ---
Author Organization [facility] Address [address] [place] [address] Care Team Providers Care Neck Band Maker Name Role Phone Jovon Sifuentes MD Primary Care Provider [phone] Encounter Details Date Type Department Care Team (Late st Contact Info) Description 05/18/2020 Lab Requisition [facility] Pathology & Laboratory Medicine - [address] [address] Outr Resulting Lab, Provider Social History Tobacco [...] in accordance with CLIA regulations, College of [employer] (CAP) guidelines (Jan 25, 2020), and FDA guidance (Jan 06, 2020). This test is only for use under the Food and Drug Administration's Emergency Use Authorization. Swab ENTIRE NASOPHARYNX / Unknown 05/18/2020 11:03 EDT 05/18/2020 22:43 EDT Provider Outr Resulting Lab MICROBIOLOGY - GENERAL ORDERABLES [facility] [place] * COVID-19 TESTING (05/18/2020 11:03 EDT) COVID-19 rt-PCR Result NEGATIVE Negative 05/20/2020 14:40 EDT [facility] Comment: 2019-novel Coronavirus (2019-nCoV) not detected [...] in accordance with CLIA regulations, College of [employer]ologists (CAP) guidelines (Jan 25, 2020), and FDA guidance (Jan 06, 2020). This test is only for use under the Food and Drug Administration's Emergency Use Authorization. Performing Lab [facility] 05/20/2020 14:[address] [facility] Swab 05/18/2020 11:0 3 EDT 05/18/2020 22:43 EDT Provider Outr Resulting Lab MICROBIOLOGY - GENERAL ORDERABLES [facility] [address] [place] [address] [facility] [place] documented in this encounter Visit Diagnoses Not on filedocumented in this encounter Additional Health Concerns Infection Onset Date Last Indicated Resolved Time R/O COVID-19 05/18/2020 05/18/2020 05/23/2020 22:1 6 EDT documented as of this encounter Care Teams Neck Band Maker Relationship Specialty Start Date End Date Jovon Sifuentes MD [address] [place] [address] PCP - General 09/05/09 documented as of this encounter
--- OUTSIDE RECORDS SUMMARY | 2024-08-28 12:58 | XMS_ITS | Encounter Summary ---
Author Organization [facility] Address [address] [place] [address] Care Team Providers Care Aircraft Avionics Technician Name Role Phone Jovon Sifuentes MD Primary Care Provider [phone] Encounter Details Date Type Department Care Team (Late st Contact Info) Description 05/14/2023 Lab Requisition [facility] Pathology & Laboratory Medicine - [address] [address] Dinesh Phelps MD [address] [place] [address] [place] [address] Encounter for other general examination [...] management options, if applicable. 05/18/2023 11:25 EDT [facility] Final Diagnosis A. PROSTATE, RIGHT [...] adenocarcinoma, involving 1 of 1 core. - Omaha score 4 + 3 = 7 (grade group 3), 70% Marko pattern 4, tumor extent 6 mm (40% of core). - Cribriform Omaha pattern 4 is present. I. PROSTATE, LEFT MID LATERAL, NEEDLE CORE BIOPSY: - Prostatic adenocarcinoma, involving 1 of 1 core. - Omaha score 3 + 5 = 8 (grade group 4), tumor extent 4 mm (30% of core). J. PROSTATE, LEFT MID MEDIAL, NEEDLE CORE BIOPSY: - Prostatic adenocarcinoma, involving 1 of 1 core. - Omaha score 4 + 5 = 9 (grade group 5), tumor extent 2 mm (15% of core). K. PROSTATE, LEFT APEX LATERAL, NEEDLE CORE BIOPSY: - Benign prostatic tissue. L. PROSTATE, LEFT APEX MEDIAL, NEEDLE CORE BIOPSY: - Prostatic adenocarcinoma, involving 1 of 1 core. - Omaha score 5 + 4 = 9 (grade group 5), tumor extent 2 mm (20% of core). 05/18/2023 11:25 [facility] Diagnosis Comment 05/18/2023 11:25 [facility] Attestation There was significant resident/fellow involvement in the diagnostic evaluation of this case. By the signature below, the attending physician certifies that they have personally conducted a gross and/or microscopic examination of the described specimens and rendered or confirmed the above diagnosis. 05/18/2023 11:25 [facility] at [address] Clinical History Not listed 05/18/2023 11:25 [facility] Gross Description A. Received in [...] Arely Albright 05/14/2023 9:33 05/18/2023 11:25 EDT [facility] Resident/Yan w: Katherine Murillo MD 05/18/2023 11:25 EDT [facility] Performing Lab [facility] 05/18/2023 11:25 EDT [facility] Scanned Images 05/18/2023 11:25 T [facility] Tissue ENTIRE APEX OF PROSTATE [...] EDT Dinesh Phelps MD PATHOLOGY ORDERAB LES [facility] [address] [place] [address] documented in this encounter Visit Diagnoses Diagnosis Encounter for other general examination documented in this encounter Care Teams Aircraft Avionics Technician Relationship Specialty Start Date End Date Jovon Sifuentes MD [address] [place] [address] PCP - General 09/05/09 documented as of this encounter
--- OUTSIDE RECORDS SUMMARY | 2024-08-28 12:58 | XMS_ITS | Encounter Summary ---
[place] [address] Care Team Providers Care Property Utilization Manager Name Role Phone Jovon Sifuentes MD Primary Care Provider [phone] Reason for Visit * Reason Comments Acrochordon Encounter Details Date Type Department Care Team (Late st Contact Info) Description 02/16/2011 11:30 AM EDT Office Visit Dermatology [address] [facility] [address] [place] [address] Alex Diaz MD [address] [facility] [place] [address] Acrochordons (Primary Dx) Social History Tobacco Use [...] 10:20 AM EST Office [place] [address] Sriram Contreras MD [facility] [place] [address] 10/31/2024 1:30 PM EST Office Visit Hematology/Oncology at [address] [address] Dmitry Bhatti MD [facility] DR H[place]Y [place] [address] Ellen Mcrae APRN [facility] [place] [address] 10/31/2024 2:00 PM EST Infusion Hematology Oncology at [address] [id number] documented as of this encounter Visit Diagnoses Diagnosis Acrochordons- Primary Unspecified hypertrophic and atrophic condition of skin documented in this encounter Care Teams Property Utilization Manager Relationship Specialty Start Date End Date Jovon Sifuentes MD [address] [place] [address] PCP - General 09/30/10 09/10/21 documented as of this encounter
--- OUTSIDE RECORDS SUMMARY | 2024-08-28 12:58 | XMS_ITS | Encounter Summary ---
Author Organization [facility] Address [address] [place] [address] Care Team Providers Care District Traffic Chief Name Role Phone Jovon Sifuentes MD Primary Care Provider Encounter Details Date Type Department Care Team (Late st Contact Info) Description 01/02/2008 Results Only [facility] [address] [place] [address] Cecilia Talley MD [address] [place] [id number] Social History Tobacco Use Types Packs/Day Years [...] ? JOSE BEE ? Accession #: ? [id number] ? : ? 1950 (Age: 57) ??M [...] Gross Description: ? Received in formalin labelled Cristal and lingual tonsil are multiple casas-pink tissue fragments measuring 1.5 x 1.2 x 0.3 cm in aggregate, which are partially surfaced by casas smooth mucosa. ??Entirely submitted in one cassette. (Sabina Thomas/raghavendra End of Report [facility] 01/02/2008 01/02/2008 16: 09 EST Cecilia Talley MD PATHOLOGY ORDERABLES Performing Organization Address City/State/[facility] Co de Phone Number [facility] [address] [place] [address] documented in this encounter Visit Diagnoses Not on filedocumented in this encounter Care Teams District Traffic Chief Relationship Specialty Start Date End Date Jovon Sifuentes MD [address] [place] [address] PCP - General 09/05/09 documented as of this encounter
--- OUTSIDE RECORDS SUMMARY | 2024-08-28 12:58 | XMS_ITS | Encounter Summary ---
Author Organization [facility] Address [address] [place] [address] Care Team Providers Care Lead Press Operator Name Role Phone Jovon Sifuentes MD Primary Care Provider [phone] Encounter Details Date Type Department Care Team (Late st Contact Info) Description 07/21/2006 Results Only [facility] [address] [place] [address] Mario Medel MD [address] [place] [address] Social History Tobacco Use Types [...] ? JOSE BEE ? Accession #: ? [id number] ? : ? 1950 (Age: 55) ??M [...] Description: ? Received in Hollande's fixative labelled Cristal and ascending colon polyp is a 0.2 x 0.2 x 0.2 cm brown firm material consistent with vegetative matter. ??The specimen is submitted intact as (A). Received in Hollande's fixative labelled Cristal and transverse colon polyp are two casas-pink polypoid portions of soft tissue averaging 0.2 x 0.2 x 0.1 cm, submitted in toto as (B). Received in [facility]'s fixative labelled Logan and rectosigmoid polyp are two casas-pink polypoid portions of soft tissue averaging 0.2 x 0.2 x 0.1 cm, submitted in toto as (C). ??(Denzel Aldridge)/[facility] End of Report [facility] 07/21/2006 07/22/2006 10: 30 EDT Mario Medel MD PATHOLOGY ORDERABLES [facility] [address] [place] [address] documented in this encounter Visit Diagnoses Not on filedocumented in this encounter Care Teams Lead Press Operator Relationship Specialty Start Date End Date Jovon Sifuentes MD [address] [place] [address] PCP - General 09/05/09 documented as of this encounter
--- OUTSIDE RECORDS SUMMARY | 2024-08-28 12:58 | XMS_ITS | Encounter Summary ---
Author Organization [facility] Address [address] [place] [address] Care Team Providers Care Rn Stars Name Role Phone Jovon Sifuentes MD Primary Care Provider Encounter Details Date Type Department Care Team (Late st Contact Info) Description 07/31/2020 Lab Requisition [facility] Pathology & Laboratory Medicine - [address] [address] Outr Resulting Lab, Provider Social History Tobacco [...] 0.0 - 6.5 ng/mL 07/31/2020 19:55 EDT [facility] Blood VENOUS BLOOD / Unknown 07/30/2020 14:40 EDT 07/31/2020 17:10 EDT Narrative [facility] - 07/31/2020 19:55 EDT NOTE: Serum PSA concentration should not be interpreted as absolute evidence for the presence or absence of malignant disease. Assayed on Siemens ADVIA [employer] XPT using chemiluminescent technology.??Values obtained by using different assay methods cannot be used interchangeably. Provider Outr Resulting Lab CHEMISTRY & BLOOD GAS ORDERABLES [facility] [address] [place] [address] documented in this encounter Visit Diagnoses Not on filedocumented in this encounter Care Teams Rn Stars Relationship Specialty Start Date End Date Jovon Sifuentes MD [address] [place] [address] PCP - General 09/05/09 documented as of this encounter
--- OUTSIDE RECORDS SUMMARY | 2024-08-28 12:58 | XMS_ITS | Encounter Summary ---
Author Organization [facility] Address [address] [place] [address] Care Team Providers Care Manager Compliance Name Role Phone Jovon Sifuentes MD Primary Care Provider [phone] Encounter Details Date Type Department Care Team (Late st Contact Info) Description 05/04/2023 Lab Requisition [facility] Pathology & Laboratory Medicine - [address] [address] Outr Resulting Lab, Provider Social History Tobacco [...] PSA 84.1(H) <=6.5 ng/mL 05/04/2023 19:05 EDT [facility] Blood VENOUS BLOOD / Unknown 05/03/2023 14:15 EDT 05/04/2023 17:19 EDT Narrative [facility] - 05/04/2023 19:05 EDT NOTE: Serum PSA concentration should not be interpreted as absolute evidence for the presence or absence of malignant disease. Assayed on Siemens ADVIA [employer] XPT using chemiluminescent technology.??Values obtained by using different assay methods cannot be used interchangeably. Provider Outr Resulting Lab CHEMISTRY & BLOOD GAS ORDERABLES [facility] [address] [place] [address] documented in this encounter Visit Diagnoses Not on filedocumented in this encounter Care Teams Manager Compliance Relationship Specialty Start Date End Date Jovon Sifuentes MD [address] [place] [address] PCP - General 09/05/09 documented as of this encounter
--- OUTSIDE RECORDS SUMMARY | 2024-08-28 12:58 | XMS_ITS | Encounter Summary ---
Author Organization [facility] Address [address] [place] [address] Care Team Providers Care Solar Panel Installation Supervisor Name Role Phone Jovon Sifuentes MD Primary Care Provider [phone] Encounter Details Date Type Department Care Team (Late st Contact Info) Description 10/08/2020 Lab Requisition [facility] Pathology & Laboratory Medicine - [address] [address] Outr Resulting Lab, Provider Social History Tobacco [...] in accordance with CLIA regulations, College of Guyanese Pathologists (CAP) guidelines (Jan 25, 2020), and FDA guidance (Jan 06, 2020). This test is only for use under the Food and Drug Administration's Emergency Use Authorization. Swab ENTIRE NASOPHARYNX / Unknown 10/08/2020 10:12 EST 10/08/2020 16:36 EST Provider Outr Resulting Lab MICROBIOLOGY - GENERAL ORDERABLES [facility] [place], [place] * COVID-19 TESTING (10/08/2020 10:12 EST) COVID-19 rt-PCR Result NEGATIVE Negative 10/10/2020 10:28 EST [facility] Comment: 2019-novel Coronavirus (2019-nCoV) not detected [...] in accordance with CLIA regulations, College of Guyanese Pathologists (CAP) guidelines (Jan 25, 2020), and FDA guidance (Jan 06, 2020). This test is only for use under the Food and Drug Administration's Emergency Use Authorization. Performing Lab [facility] [place] 10/10/2020 10:28 EST [facility] Swab 10/08/2020 10:1 2 EST 10/08/2020 16:36 EST Provider Outr Resulting Lab MICROBIOLOGY - GENERAL ORDERABLES [facility] [address] [place] [address] [facility] [place] documented in this encounter Visit Diagnoses Not on filedocumented in this encounter Care Teams Solar Panel Installation Supervisor Relationship Specialty Start Date End Date Jovon Sifuentes MD [address] [place] [address] PCP - General 09/05/09 documented as of this encounter
--- OUTSIDE RECORDS SUMMARY | 2024-08-28 12:58 | XMS_ITS | Clinical Summary ---
Author Organization [facility] Address [address] [place] [address] Care Team Providers Care Regional Company Truck Driver Name Role Phone Jovon Sifuentes MD Primary Care Provider [phone] Social History Tobacco Use Types Packs/Day Years [...] COVID-19 Vaccine ( season) 2023 Care Teams Regional Company Truck Driver Relationship Specialty Start Date End Date Jovon Sifuentes MD [address] [place] [address] [facility] - General 09/05/09
--- OUTSIDE RECORDS SUMMARY | 2024-08-28 12:58 | XMS_ITS | Encounter Summary ---
Author Organization [facility] Address [address] [place] [address] Care Team Providers Care P D Driver Name Role Phone Jovon Sifuentes MD Primary Care Provider [phone] Encounter Details Date Type Department Care Team (Late st Contact Info) Description 10/12/2012 Results Only [facility] - [facility] [address] [place], [place] [address] Mario Medel MD [address] [place], [place] [id number] Social History Tobacco Use Types Packs/Day Years [...] ? JOSE BEE ? Accession #: ? [id number] ? : ? 1950 (Age: 61) ??M [...] Deeper sections were reviewed for (B). ??(Dr. Strickland)/[facility] Document reviewed and electronically signed by: [...] EST Mario Medel MD PATHOLOGY ORDERABLES [facility] [address] [place] [address] documented in this encounter Visit Diagnoses Not on filedocumented in this encounter Care Teams P D Driver Relationship Specialty Start Date End Date Jovon Sifuentes MD [address] [place] [address] PCP - General 09/05/09 documented as of this encounter
--- OUTSIDE RECORDS SUMMARY | 2024-08-28 12:58 | XMS_ITS | Encounter Summary ---
Author Organization [facility] Address [address] [place] [address] Care Team Providers Care Unit Aide Tech Name Role Phone Jovon Sifuentes MD Primary Care Provider [phone] Encounter Details Date Type Department Care Team (Late st Contact Info) Description 10/16/2020 Lab Requisition [facility] Pathology & Laboratory Medicine - [address] [id number] Outr Resulting Lab, Provider Social History Tobacco [...] in accordance with CLIA regulations, College of [employer] Pathologists (CAP) guidelines (Jan 25, 2020), and FDA guidance (Jan 06, 2020). This test is only for use under the Food and Drug Administration's Emergency Use Authorization. Swab ENTIRE NASOPHARYNX / Unknown 10/15/2020 13:00 EST 10/16/2020 16:13 EST Provider Outr Resulting Lab MICROBIOLOGY - GENERAL ORDERABLES [facility] [place], [place] * COVID-19 TESTING (10/15/2020 13:00 EST) COVID-19 rt-PCR Result NEGATIVE Negative 10/18/2020 15:51 EST [facility] Comment: 2019-novel Coronavirus (2019-nCoV) not detected [...] in accordance with CLIA regulations, College of [employer] Pathologists (CAP) guidelines (Jan 25, 2020), and FDA guidance (Jan 06, 2020). This test is only for use under the Food and Drug Administration's Emergency Use Authorization. Performing Lab [facility] [place] 10/18/2020 15:51 EST [facility] Swab 10/15/2020 13:0 0 EST 10/16/2020 16:13 EST Provider Outr Resulting Lab MICROBIOLOGY - GENERAL ORDERABLES [facility] [address] [place] [address] [facility] [place] documented in this encounter Visit Diagnoses Not on filedocumented in this encounter Care Teams Unit Aide Tech Relationship Specialty Start Date End Date Jovon Sifuentes MD [address] [place] [address] PCP - General 09/05/09 documented as of this encounter
--- OUTSIDE RECORDS SUMMARY | 2024-08-28 12:58 | XMS_ITS | Encounter Summary ---
Author Organization [facility] Address [address] [place] [address] Care Team Providers Care Brick And Blocker Aid Labor Name Role Phone Jovon Sifuentes MD Primary Care Provider [phone] Encounter Details Date Type Department Care Team (Late st Contact Info) Description 09/25/2009 Orders Only [address] [address] Mario Medel MD [address] [place], [place] [id number] Social History Tobacco Use Types Packs/Day Years [...] ? JOSE BEE ? Accession #: ? [id number] ? : ? 1950 (Age: 58) ??M [...] adenoma ? Gross Description: ? Received in [facility]'s fixative labelled Jose Bee and #1 ? ascending colon polyp are three biopsies which vary in size from 0.1 cm in ? diameter up to 0.3 x 0.2 x 0.2 cm. ??The specimens are submitted intact as (A). ? Received in [facility]'s fixative labelled Jose Bee and #2 ? transverse colon polyp is a 0.2 x 0.2 x 0.2 cm biopsy. ??The specimen is ? submitted intact as (B). ? Received in [facility]'s fixative labelled Jose Bee and #3 [...] Medel MD PATHOLOGY ORDERABLES Performing Organization Address City/State/[facility] Co de Phone Number [facility] [address] [place] [address] documented in this encounter Visit Diagnoses Not on filedocumented in this encounter Care Teams Brick And Blocker Aid Labor Relationship Specialty Start Date End Date Jovon Sifuentes MD [address] [place] [address] PCP - General 09/05/09 documented as of this encounter
[2024-08-28 14:00] VITALS: BP 117/55; PULSE 60; RESP 16; TEMP 36.6; O2SAT 98
--- NOTE | 2024-08-28 14:21 | W.ED.GENAD ---
Discharge Plan Discharge Details Chief Complaint: EarProblem Clinical Impression: Otitis externa of right ear Primary Care Provider: Paulino Finley ED Provider: Brock Todd Home Meds and New Rx's Prescriptions: No Action tadalafil [Cialis] 10 mg tablet 10 mg PO DAILY PRN Rx Instructions: administer approximately 30min before sexual activity; do not use more than 1 dose per 24hrs acetaminophen [Tylenol] 325 MG tablet 650 mg PO Q6H PRN tamsulosin [Flomax] 0.4 MG capsule 0.4 mg PO DAILY diphenhydramine HCl [Benadryl Allergy] 25 mg tablet 25 mg PO QHS PRN Gaykjqhb-Gwxwkq-OYD with vit D 1 EACH tablet 1 tab PO DAILY Eliquis 5 MG tablet 5 mg PO BID 30 Days 0RF Rx Instructions: take 10mg twice daily for 7 days then 5mg twice daily Discharge Instructions Additional Instructions: You have a follow-up appointment with Dr. Cabezas on 08/30/2024 at 11 AM. Referrals: [facility] [Provider Group] Paulino Finley MD [Primary Care Provider] - [facility] General Mode of arrival: ambulatory. Date/Time Provider Initiated Documentation: 08/28/24 13:43. Limitations to Documentation: no limitations. Information obtained by: patient. HPI Narrative: 73yo male presents with chief complaint of right facial swelling. Patient notes he has had persistent infection of his right ear despite multiple courses of antibiotics both orally and topically. He states right facial swelling has worsened over the past few days. He has no associated fever. No headache. No visual changes. History limited secondary to poor historian. Patient unsure of what antibiotics he has been treated with. He completed most recent course of antibiotic on Wednesday of last week. Related Data Home Medications ?Medication ?Instructions ?Recorded ?Confirmed acetaminophen 325 mg tablet 650 mg PO Q6H PRN 04/08/15 08/28/24 (Tylenol) tamsulosin 0.4 mg capsule (Flomax) 0.4 mg PO DAILY 04/08/15 08/28/24 apixaban 5 mg tablet (Eliquis) 5 mg PO BID 30 days 03/29/17 08/28/24 glucosamine 750 ha-jwdpnb-cob 2-C 1 tab PO DAILY 05/22/17 10/21/24 30 mg-D3 1,000 unit-debora 1 mg tablet (Kemkwaqecjf-Kuxkzjmwhtz-RFU + vitD) tadalafil 10 mg tablet (Cialis) 10 mg PO DAILY PRN 05/20/20 08/28/24 diphenhydramine HCl 25 mg tablet 25 mg PO QHS PRN 05/10/23 08/28/24 (Benadryl Allergy) Previous Rx's ?Medication ?Instructions ?Recorded apixaban 5 mg tablet (Eliquis) 5 mg PO BID 30 days 03/29/17 Allergies Allergy/AdvReac Type Severity Reaction Status Date / Time degarelix (From Firmagon) AdvReac Mild Unknown Verified 08/28/24 12:23 clindamycin AdvReac Other (See Verified 08/28/24 12:23 Comment) ibuprofen AdvReac upset Verified 08/28/24 12:23 stomach General Stated Complaint: EarProblem JOSE: 3 Review of Systems All systems reviewed & are unremarkable except as noted in HPI and below Constitutional Constitutional: Denies fever(s) ENT Ears, Nose, Mouth, and Throat: Reports as per HPI, Denies facial pain, Denies mouth pain, Denies nasal congestion, Denies neck pain, Denies sinus pain, Denies sinus pressure and Denies sore throat Musculoskeletal Musculoskeletal: Denies neck pain Exam Const General: cooperative and no acute distress [facility] Ears: mastoids normal, EAC abnormal erythema and otic discharge occluded by discharge, no periauricular adenopathy and unable to visualize TM on the right Face and sinus: face asymmetric, no sinus tenderness and other (rt cheek swollen and erythematous) Mouth: oral mucosae normal Throat: posterior oropharynx normal Eyes Periorbital: periorbital findings normal Conjunctivae: normal conjunctivae Sclera: normal sclerae Pupils: PERRL EOM: EOM intact bilaterally Neck Neck: trachea midline and supple Lymphatic: no lymphadenopathy noted Resp Auscultation: clear to auscultation bilaterally, no rales, no rhonchi and no wheezes Cardio Rate: regular rate and not tachycardic Rhythm: regular rhythm Neuro General: patient alert, patient awake and tone normal Psych Appearance: grossly normal Mental Status: mental status grossly normal Course Vital Signs Vital signs: Vital Signs Temperature 36.7 C 08/28/24 12:19 Pulse 70 08/28/24 12:19 Respiratory Rate 16 08/28/24 12:19 Blood Pressure 118/78 08/28/24 12:19 Pulse Oximetry 96 08/28/24 12:19 Temperature 36.6 C 08/28/24 14:00 Temperature Source Oral 08/28/24 14:00 Pulse 60 08/28/24 14:00 Pulse Rhythm Regular 08/28/24 14:00 Pulse Strength Normal 08/28/24 14:00 Respiratory Rate 16 08/28/24 14:00 Respiratory Effort Normal, Non-Labored 08/28/24 14:00 Respiratory Depth Normal 08/28/24 14:00 Respiratory Pattern Normal 08/28/24 14:00 Blood Pressure 117/55 L 08/28/24 14:00 Blood Pressure Mean 75 08/28/24 14:00 Blood Pressure Position Sitting 08/28/24 14:00 Pulse Oximetry 98 08/28/24 14:00 Oxygen Delivery Method Room Air 08/28/24 14:00 Oxygen Flow Rate 0 08/28/24 14:00 Pain Level 4 08/28/24 14:00 Medical Decision Making 1440 --- 73-year-old male with 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 Patient is afebrile and hemodynamically stable. Mastoids nontender. I obtained outside hospital records reviewing no other counties medical record: Patient has completed multiple rounds of antibiotics since the end of July including Augmentin for 10 days, Corticosporin, Cipro hydrocortisone drops, and most recently cefuroxime for 7 day, completed on 08/25/2024. 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 Plan to obtain CT of the face. I spoke with radiologist, Dr. Chung, he recommends CT of the neck with IV contrast as opposed to CT face given concerns. I called and spoke with Dr. Cabezas, discussed ED presentation and course, he agrees with obtaining CT, and if no acute surgical finding, he recommends Cipro 750mg twice daily x 7 days. He will be happy to see the patient follow-up on Wednesday at 11 AM. I will provide initial dose of ciprofloxacin 750 mg p.o. at this time. Lab Data Lab results reviewed: Yes I reviewed the patient's lab results. Labs: Laboratory Tests Range/Units 08/28/24 14:21 WBC (4.4-10.8) 10^3/uL 6.73 RBC (4.36-5.78) 10^6/uL 4.51 Hgb (13.5-17.5) g/dL 14.2 Hct (40.0-50.0) % 43.4 MCV (80-95) fL 96 H MCH (27.0-33.0) pg 31.5 MCHC (32.0-36.0) % 32.7 RDW (11.8-14.1) % 13.2 Plt Count (130-400) 10^3/uL 171 MPV (8.0-11.0) fL 9.5 Immature Gran % % 0.4 Neutrophils % % 54.3 Lymphocytes % % 30.9 Monocytes % % 10.0 Eosinophils % % 3.1 Basophils % % 1.3 Nucleated RBC % (0.0-0.3) % 0.0 Absolute Neutrophils (1.2-6.7) 10^3/uL 3.65 Absolute Lymphocytes (1.2-3.4) 10^3/uL 2.08 Absolute Monocytes (0.1-0.8) 10^3/uL 0.67 Absolute Eosinophils (0.0-0.7) 10^3/uL 0.21 Absolute Basophils (0.0-0.2) 10^3/uL 0.09 Sodium (136-145) mmol/L 144 Potassium (3.5-5.1) mmol/L 4.4 Chloride (98-107) mmol/L 108 H Carbon Dioxide (21.0-32.0) mmol/L 28.3 Anion Gap (3-11) mmol/L 7.7 BUN (7-18) mg/dL 20 H Creatinine (0.70-1.30) mg/dL 1.3 Est GFR (CKD-EPI 2020) (mL/min/1.73m2) 57.65 Glucose (74-106) mg/dL 96 Calcium (8.5-10.1) mg/dL 9.6 Total Bilirubin (0.2-1.0) mg/dL 0.49 AST (15-37) U/L 22 ALT (16-63) U/L 29 Alkaline Phosphatase (46-116) U/L 135 H Total Protein (6.4-8.2) g/dL 7.6 Albumin (3.4-5.0) g/dL 3.8 Quality:SDOH Health Related Social Needs: No Data to Display PFSH All Active Problems (Updated 08/28/24 @ 14:50 by Brock Todd MD) Otitis externa of right ear (Acute) Gross hematuria (Acute) Prostate cancer (Chronic) Hearing loss (Acute) Rupture of right proximal biceps tendon (Acute) Arthritis of knee, left (Acute) Traumatic tear of right rotator cuff (Acute 05/18/20) Bursitis of right shoulder (Acute) Medical History Elevated PSA COX (dyspnea on exertion) Prostate nodule Quadriceps tendon rupture Tendonitis of long head of biceps brachii of right shoulder Achilles rupture, right Achilles rupture, left Erectile dysfunction Cataract right Hypothyroidism Per [facility] record Arthritis KORI (obstructive sleep apnea) BPH (benign prostatic hyperplasia) Hx pulmonary embolism Dysphagia Per pt. states as a result of his TLM and open neck resention he doesn't swallow like he used to Tongue cancer Hx: UTI (urinary tract infection) Torn rotator cuff Atrial fibrillation F/U with PCP Billy Sifuentes Surgical History History of arthroscopic knee surgery Status post neck dissection TLM and open resection with neck dissection July 2017 Social History Smoking/Tobacco Use Status: Former Tobacco Use Quit Date: 11/08/96 Smoking risk assessment performed?: Yes Alcohol Intake: current Alcohol Intake frequency: a few times a week Alcohol type: hard liquor Drug use: Never Substance use type: does not use Current gender identity: male Do you feel safe at home: Yes Do you feel safe in your relationship?: Yes
[2024-08-28 14:28] LABS: Abs Immature Grans 0.03 10^3/uL (0.0-0.06); Absolute Basophil Count 0.09 10^3/uL (0.0-0.2); Absolute Eosinophil Count 0.21 10^3/uL (0.0-0.7); Absolute Lymphocyte Count 2.08 10^3/uL (1.2-3.4); Absolute Monocyte Count 0.67 10^3/uL (0.1-0.8); Absolute Neutrophil Count 3.65 10^3/uL (1.2-6.7); Basophils % 1.3 %; Eosinophils % 3.1 %; HCT 43.4 % (40.0-50.0); HGB 14.2 g/dL (13.5-17.5); Immature Grans % 0.4 %; Lymphocytes % 30.9 %; MCH 31.5 pg (27.0-33.0); MCHC 32.7 % (32.0-36.0); MCV 96 fL (80-95); MPV 9.5 fL (8.0-11.0); Neutrophils % 54.3 %; Platelet Count 171 10^3/uL (130-400); RBC 4.51 10^6/uL (4.36-5.78); RDW 13.2 % (11.8-14.1); RDW-SD 47.1 fL; WBC 6.73 10^3/uL (4.4-10.8)
--- NOTE | 2024-08-28 14:30 | DI.CT_ITS ---
Exam(s) CT NECK W EXAM: CT NECK W CLINICAL HISTORY: rt facial cellulitis,rt ext otitis,include mastoid. TECHNIQUE: Imaging Protocol: Axial computed tomography images with coronal and sagittal reformatted images were created and reviewed. CONTRAST MATERIAL: Intravenous: Omnipaque 350 Contrast volume:100mL COMPARISON: CT HEAD FACIALS WO from 02/25/2018 FINDINGS: The examination is limited due to patient motion artifact. Orbits and orbital soft tissues: Within normal limits. Visualized paranasal sinuses: There is a small mucous retention cyst in the right maxillary sinus. The mastoid air cells are clear. External auditory canals: There is a small amount of soft tissue seen in both the left and the right external auditory canals. No erosive changes are seen in the adjacent bones. Temporal bones: The middle ears are unremarkable. The ossicles are unremarkable. No fluid or soft t issue is seen in the middle ear. Nasopharynx: Within normal limits. Oropharynx: Within normal limits. Hypopharynx: Within normal limits. Larynx: Within normal limits. Retropharyngeal space: Within normal limits. Parotids/submandibular: Within normal limits. Thyroid gland: Within normal limits. Lymphadenopathy: There is scattered lymph nodes seen along the level one to level three all measurin g less than 8 mm in short axis diameter which are physiologic in nature. Trachea: Within normal limits. Lung apices: There is motion artifact. No focal consolidating infiltrates are seen. Bones: There are again seen numerous sclerotic foci in the bones. Age-appropriate degenerative alba es are seen throughout the cervical spine. Carotids/Jugular: Within normal limits. Atherosclerotic calcification is present. Soft tissues: There is mild infiltration of the soft tissues in the right cheek. No focal fluid co llection is seen to suggest an abscess. IMPRESSION: 1. Mild cellulitis of the right cheek without focal fluid collection to suggest an abscess. 2. Small amount of soft tissue seen in the external auditory canals bilaterally. No destructive osse ous changes are seen. There is no extension into the middle ear. This may represent cerumen. Pleas e correlate clinically RADIATION DOSE DELIVERED: 576.99mGy.cm Total DLP 576.99mGy.cm Total DLP DATA REPOSITORY: All CT scans at this facility are submitted to the National Radiology Data Registry (NRDR) Dose Index Registry (DIR) with the [employer] (ACR). RADIATION OPTIMIZATION: All CT scans at this facility use at least one of these dose optimization te chniques: automated exposure control; mA and/or kV adjustment per patient size (includes targeted exa ms where dose is matched to clinical indication); or iterative reconstruction.
[2024-08-28 14:45] LABS: ALT 29 U/L (16-63); AST 22 U/L (15-37); Albumin 3.8 g/dL (3.4-5.0); Alkaline Phosphatase 135 U/L (46-116); Anion Gap 7.7 mmol/L (3-11); BUN 20 mg/dL (7-18); Bilirubin, Total 0.49 mg/dL (0.2-1.0); CO2 28.3 mmol/L (21.0-32.0); CREATININE 1.3 mg/dL (0.70-1.30); Calcium 9.6 mg/dL (8.5-10.1); Chloride 108 mmol/L (98-107); Estimated GFR 57.65 (mL/min/1.73m2); Glucose 96 mg/dL (74-106); Potassium 4.4 mmol/L (3.5-5.1); Sodium 144 mmol/L (136-145); Total Protein 7.6 g/dL (6.4-8.2)
--- NOTE | 2024-08-28 14:49 | NUR.NOTE ---
Appt with ENT, DR Cabezas. 08/30/24 @ 11am. Nursing Note:
[2024-08-28] MEDS: Ciprofloxacin 250 MG TAB 750 MG PO (15:07)
[2024-08-28] MEDS: Normal Saline - Diluent 50 ML VIAL IJ (15:48)
[2024-08-28] MEDS: Omnipaque 350 MG/ML 100 ML BTL IJ (15:49)
--- NOTE | 2024-08-28 16:47 | ED.PROG_ITS ---
Date of service: 08/28/24 Time of Service: 16:47 Medical Decision Making This dictation utilizes [id number] dictation software and may contain unedited grammatical errors. Patient seen in sign-out from Dr. Brock Todd, please see his complete note. 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 Patient had been arrnaged to see Dr. Cbaezas of ENT on Wednesday, and Dr. Cabezas recommended ciprofloxacin PO until then with uncomplicated CT results. Differential / pathologies of concern include otitis externa, facial cellulitis, mass pathology. Diagnostic studies of: -Labs reviewed and were benign, CT neck with is pending at time of signout. -CT neck which shows facial cellulitis without abscess, no masses seen Interventions of: -Outpatient ciprofloxacin, ENT follow-up arranged. Findings not consistent with mass effect, abscess, Abi syndrome, Olivia Salas. Disposition of [ ]. Patient verbalized understanding of the plan and return to ED criteria and engaged in shared decision making. Medical Records Medical records reviewed: Yes I reviewed the patient's medical records. Imaging Data Radiologic Study: Attestation: I personally reviewed and interpreted this imaging study as follows: Imaging: CT Scan Radiologist's impression: EXAM: CT NECK W CLINICAL HISTORY: rt facial cellulitis,rt ext otitis,include mastoid. TECHNIQUE: Imaging Protocol: Axial computed tomography images with coronal and sagittal reformatted images were created and reviewed. CONTRAST MATERIAL: Intravenous: Omnipaque 350 Contrast volume:100mL COMPARISON: CT HEAD FACIALS WO from 02/25/2018 FINDINGS: The examination is limited due to patient motion artifact. Orbits and orbital soft tissues: Within normal limits. Visualized paranasal sinuses: There is a small mucous retention cyst in the right maxillary sinus. The mastoid air cells are clear. External auditory canals: There is a small amount of soft tissue seen in both the left and the right external auditory canals. No erosive changes are seen in the adjacent bones. Temporal bones: The middle ears are unremarkable. The ossicles are unremarkable. No fluid or soft tissue is seen in the middle ear. Nasopharynx: Within normal limits. Oropharynx: Within normal limits. Hypopharynx: Within normal limits. Larynx: Within normal limits. Retropharyngeal space: Within normal limits. Parotids/submandibular: Within normal limits. Thyroid gland: Within normal limits. Lymphadenopathy: There is scattered lymph nodes seen along the level one to level three all measuring less than 8 mm in short axis diameter which are physiologic in nature. Trachea: Within normal limits. Lung apices: There is motion artifact. No focal consolidating infiltrates are seen. Bones: There are again seen numerous sclerotic foci in the bones. Age- appropriate degenerative changes are seen throughout the cervical spine. Carotids/Jugular: Within normal limits. Atherosclerotic calcification is present. Soft tissues: There is mild infiltration of the soft tissues in the right cheek. No focal fluid collection is seen to suggest an abscess. IMPRESSION: 1. Mild cellulitis of the right cheek without focal fluid collection to suggest an abscess. 2. Small amount of soft tissue seen in the external auditory canals bilaterally. No destructive osseous changes are seen. There is no extension into the middle ear. This may represent cerumen. Please correlate clinically Lab Data Lab results reviewed: Yes I reviewed the patient's lab results. Labs: Laboratory Tests Range/Units 08/28/ 14:21 WBC (4.4-10.8) 10^3/uL 6.73 RBC (4.36-5.78) 10^6/uL 4.51 Hgb (13.5-17.5) g/dL 14.2 Hct (40.0-50.0) % 43.4 MCV (80-95) fL 96 H MCH (27.0-33.0) pg 31.5 MCHC (32.0-36.0) % 32.7 RDW (11.8-14.1) % 13.2 Plt Count (130-400) 10^3/uL 171 MPV (8.0-11.0) fL 9.5 Immature Gran % % 0.4 Neutrophils % % 54.3 Lymphocytes % % 30.9 Monocytes % % 10.0 Eosinophils % % 3.1 Basophils % % 1.3 Nucleated RBC % (0.0-0.3) % 0.0 Absolute Neutrophils (1.2-6.7) 10^3/uL 3.65 Absolute Lymphocytes (1.2-3.4) 10^3/uL 2.08 Absolute Monocytes (0.1-0.8) 10^3/uL 0.67 Absolute Eosinophils (0.0-0.7) 10^3/uL 0.21 Absolute Basophils (0.0-0.2) 10^3/uL 0.09 Sodium (136-145) mmol/L 144 Potassium (3.5-5.1) mmol/L 4.4 Chloride (98-107) mmol/L 108 H Carbon Dioxide (21.0-32.0) mmol/L 28.3 Anion Gap (3-11) mmol/L 7.7 BUN (7-18) mg/dL 20 H Creatinine (0.70-1.30) mg/dL 1.3 Est GFR (CKD-EPI 2020) (mL/min/1.73m2) 57.65 Glucose (74-106) mg/dL 96 Calcium (8.5-10.1) mg/dL 9.6 Total Bilirubin (0.2-1.0) mg/dL 0.49 AST (15-37) U/L 22 ALT (16-63) U/L 29 Alkaline Phosphatase (46-116) U/L 135 H Total Protein (6.4-8.2) g/dL 7.6 Albumin (3.4-5.0) g/dL 3.8 Quality:SDOR Health Related Social Needs: No Data to Display Sign Out Sign Out Data: Sign Out Comment: Follow-up CT of the neck to assess for acute surgical process. Dr. Cabezas available for consultation. If no acute surgical process, plan for discharge on ciprofloxacin 750 twice daily x 7 days with outpatient follow-up with Dr. Cabezas on Wednesday as scheduled. Last updated by Brock Todd MD at 08/28/24 16:05 Discharge Plan Disposition Patient Disposition: Home Condition: Stable Discharge Details Clinical Impression: Otitis externa of right ear Primary Care Provider: Paulino Finley ED Provider: Tuan Anders Home Meds and New Rx's Prescriptions: New ciprofloxacin HCl 750 mg tablet 750 mg PO BID 7 Days Qty: 14 0RF amoxicillin-pot clavulanate 875-125 mg tablet 1 tab PO BID 7 Days Qty: 14 0RF Continued tadalafil [Cialis] 10 mg tablet 10 mg PO DAILY PRN Rx Instructions: administer approximately 30min before sexual activity; do not use more than 1 dose per 24hrs acetaminophen [Tylenol] 325 MG tablet 650 mg PO Q6H PRN tamsulosin [Flomax] 0.4 MG capsule 0.4 mg PO DAILY diphenhydramine HCl [Benadryl Allergy] 25 mg tablet 25 mg PO QHS PRN Lmhcqkwl-Pqqniy-YYD with vit D 1 EACH tablet 1 tab PO DAILY Eliquis 5 MG tablet 5 mg PO BID 30 Days 0RF Rx Instructions: take 10mg twice daily for 7 days then 5mg twice daily Discharge Instructions Instructions: Ciprofloxacin (Systemic), Amoxicillin and Clavulanate, Cellulitis (Skin Infection), Adult ED, Outer Ear Infection ED Additional Instructions: You have a follow-up appointment with Dr. Cabezas on 08/30/2024 at 11 AM. You were seen in the emergency department for your complex course of your infection, you had history of some sort of mass in the pharyngeal area so we did perform a CT which showed only a mild cellulitis or soft tissue infection of your cheek-for this I am placing you on Augmentin which was sent to [facility], per ENT Dr. Cabezas I have also placed you on ciprofloxacin for your ear complaints, he will see you on Wednesday. Please take Tylenol regularly for any discomfort, please return to the emergency department for severe increase in facial swelling, inability to open or close her jaw, vocal changes, loss of hearing, vertigo, high fevers, neck stiffness. Referrals: [facility] ENT [Provider Group] Paulino Finley MD [Primary Care Provider] -
[2024-08-28 17:00] VITALS: BP 131/65; PULSE 60; RESP 17; TEMP 36.6; O2SAT 97
[2024-08-28 17:08] VITALS: BP 131/65; PULSE 60; RESP 17; TEMP 36.6; O2SAT 97
== END 2024-08-28 17:09 | disposition home or self-care (01) ==
PROVIDERS: Student in an Organized Health Care Education/Training Program; Emergency Provider Physician Assistant; PCP Family Medicine
DX: H60.501 Unspecified acute noninfective otitis externa, right ear (principal); L03.211 Cellulitis of face; R22.0 Localized swelling, mass and lump, head
CPT/HCPCS: 00123; 36415; 70491; 80053; 99285; 85025; 99284; J3490

== ENCOUNTER 2024-09-01 13:44 | Emergency (ER) | payer MEDICARE, BC, SELFPAY ==
[2024-09-01 13:53] VITALS: BP 128/74; PULSE 72; RESP 12; TEMP 36.6; O2SAT 97
--- OUTSIDE RECORDS SUMMARY | 2024-09-01 14:04 | XMS_ITS ---
Author Organization [facility] [place] [address] Care Team Providers Care Informal Waiter/Waitress Name Role Phone Paulino Finley MD Primary Care Provider [phone] Active Problems Problem Noted Date Diagnosed Date [...] Current Oncology Plans Leuprolide (Lupron Depot) injection ([facility] [place], [facility], [facility], [facility], [facility], [facility])* [...] treatments are documented for this patient in [facility]. Treatments may have been administered in another system. Resolved Problems Problem Noted Date Diagnosed Date Resolved Date Acute respiratory failure 07/20/2017 Overview (07/20/2017): Worsening oxygenation.
--- OUTSIDE RECORDS SUMMARY | 2024-09-01 14:04 | XMS_ITS | Encounter Summary ---
[facility] [place] [address] Care Team Providers Care Straw Boss Name Role Phone Paulino Finley MD Primary Care Provider [phone] Encounter Details Date Type Department Care Team (Late Contact Info) Description 01/28/2024 Telephone Hematology/Oncology at [address] [phone] Halima Cesar Social History Tobacco Use Types [...] He is getting labs morning off at [facility] documented in this encounter Plan of Treatment Upcoming Encounters Date Type Department Care Team (Late Contact Info) Description 09/18/2024 10:20 AM EST Office [place] [phone] Sriram Contreras MD [facility] [place] [address] 10/31/2024 1:30 PM EST Office Visit Hematology/Oncology at [address] [phone] Dmitry Bhatti MD [facility] [place] [address] Ellen Mcrae APRN [facility] [place] [address] 10/31/2024 2:00 PM EST Infusion Hematology Oncology at [address] [phone] documented as of this encounter Visit Diagnoses Not on filedocumented in this encounter Care Teams Straw Boss Relationship Specialty Start Date End Date Paulino Finley MD [address] [place] [address] PCP - General Emergency Medicine 09/11/21 documented as of this encounter
--- OUTSIDE RECORDS SUMMARY | 2024-09-01 14:04 | XMS_ITS | Encounter Summary ---
Author Organization [facility] [place] [address] Care Team Providers Care Railroad Signal Technician Name Role Phone Paulino Finley MD Primary Care Provider [phone] Encounter Details Date Type Department Care Team (Late st Contact Info) Description 05/09/2024 1:00 PM EDT Office Visit Hematology/Oncology at [address] [phone] Dmitry Steven MD [facility] [place] [address] Ellen Mcrae APRN [facility] [place] [address] Malignant neoplasm of prostate metastatic to bone [...] here with his today. They live in [place]. Medications: Your Medications Accurate as of May [...] adenocarcinoma, involving 1 of 1 core. - Jordan score 4 + 5 = 9 (grade [...] adenocarcinoma, involving 1 of 1 core. - Jordan score 5 + 4 = 9 (grade group 5), tumor extent 16 mm (100% of core). - Perineural invasion is identified. F. PROSTATE, RIGHT APEX MEDIAL, NEEDLE CORE BIOPSY: - Prostatic adenocarcinoma, involving 1 of 1 core. - Jordan score 5 + 4 = 9 (grade group 5), tumor extent 15 mm (95% of core). - Perineural invasion is identified. G. PROSTATE, LEFT BASE LATERAL, NEEDLE CORE BIOPSY: - Atypical small acinar proliferation (LOLITA), highly suspicious for minute focus (0.1 mm) of prostatic adenocarcinoma. H. PROSTATE, LEFT BASE MEDIAL, NEEDLE CORE BIOPSY: - Prostatic adenocarcinoma, involving 1 of 1 core. - Jordan score 4 + 3 = 7 (grade group 3), 70% Jordan pattern 4, tumor extent 6 mm (40% [...] adenocarcinoma, involving 1 of 1 core. - Jordan score 4 + 5 = 9 (grade [...] Food and Drug Administration approved darolutamide (Nubeqa, [employer] tablets in combination with docetaxel for adult patients with metastatic hormone-sensitive prostate cancer (mHSPC). Efficacy was based on ARASENS ([id number]), a randomized, multicenter, double- blind, placebo-controlled clinical trial in 1306 patients with mHSPC. Patients were randomized to receive either darolutamide 600 mg orally twice daily plus docetaxel 75 mg/m2 intravenously administered every 3 weeks forup to 6 cycles or docetaxel plus placebo. All patients received a gonadotropin-releasing hormone analog concurrently or had a bilateral orchiectomy. The primary efficacy measure was overall survival (OS). Doqv-hv-exeq progression was an additional efficacy measure. Median OS was not reached (NR) (95% CI: NR, NR) in the darolutamide plus docetaxelarm and 48.9 months (95% CI: 44.4, NR) in docetaxel plus placebo arm (HR 0.68; 95% CI: 0.57, 0.80; p<0.0001). Treatment with darolutamide and docetaxel resulted in a statistically significant delay in hajh-fn-xbjb progression (HR 0.79; 95% CI: 0.66, 0.95; [...] 10:20 AM EST Office [place] [address] Sriram Contreras MD [facility] [place] [place] [address] 10/31/2024 1:30 PM EST Office Visit Hematology/Oncology at [address] [phone] Dmitry Steven MD [facility] [place] [address] Ellen Mcrae APRN [facility] [place] [address] 10/31/2024 2:00 PM EST Infusion Hematology Oncology at [address] [phone] Scheduled Orders Name Type Priority Associated Diagnoses [...] prostate documented in this encounter Care Teams Railroad Signal Technician Relationship Specialty Start Date End Date Paulino Finley MD [address] [place] [address] PCP - General Emergency Medicine 09/11/21 documented as of this encounter
--- OUTSIDE RECORDS SUMMARY | 2024-09-01 14:04 | XMS_ITS | Encounter Summary ---
Author [place] [address] Care Team Providers Care Fixed Wing Aircraft Flight Mechanic Name Role Phone Paulino Finley MD Primary Care Provider [phone] Reason for Visit * Reason Comments Injections * Treatment/Therapy Plan Authorization (Routine) - Authorized Specialty Diagnoses / Procedures Referred By Contbela t Referred To Contact Hematology and Oncology Diagnoses Prostate cancer metastatic to multiple sites Procedures TC LEUPROLIDE ACETATE 7.5MG, FOR DEPOST SUSPENSION (LUPRON DEPOT) [id number] LUPRON DEPOT Dmitry Bhatti MD [address] [place] [address] [place] [address] Dmitry Bhatti MD [address] [place] [address] [place] [address] Referral ID Status Reason Start Date Expiration Date V isits Requested Visits Authorized [id number] Authorized 07/08/2023 08/01/2025 101 Encounter Details Date Type Department Care Team (Late st Contact Info) Description 05/09/2024 1:30 PM EDT Infusion Hematology Oncology at [address] [phone] Prostate cancer metastatic to multiple [...] 10:20 AM EST Office [place] [address] Sriram Contreras MD [facility] [place] [address] 10/31/2024 1:30 PM EST Office Visit Hematology/Oncology at [address] [phone] Dmitry Bhatti MD [facility] DR HEMATOLOGY [place] [address] Ellen Mcrae APRN [facility] [place] [address] 10/31/2024 2:00 PM EST Infusion Hematology Oncology at [address] [phone] documented as of this encounter Visit Diagnoses [...] Gluteal documented in this encounter Care Teams Fixed Wing Aircraft Flight Mechanic Relationship Specialty Start Date End Date Paulino Finley MD [address] [place] [address] PCP - General Emergency Medicine 09/11/21 documented as of this encounter
--- OUTSIDE RECORDS SUMMARY | 2024-09-01 14:04 | XMS_ITS | Encounter Summary ---
Author Organization [facility] [address] Care Team Providers Care Mainspring Former Name Role Phone Paulino Finley MD Primary Care Provider [phone] Encounter Details Date Type Department Care Team [...] 10:20 AM EST Office [place] [address] Sriram Contreras MD [facility] [place] [address] 10/31/2024 1:30 PM EST Office Visit Hematology/Oncology at [address] [phone] Dmitry Bhatti MD [facility] DR [place] [address] Ellen Mcrae APRN [facility] [place] [address] 10/31/2024 2:00 PM EST Infusion Hematology Oncology at [address] [phone] documented as of this encounter Visit Diagnoses Not on filedocumented in this encounter Care Teams Mainspring Former Relationship Specialty Start Date End Date Paulino Finley MD [address] [place] [address] PCP - General Emergency Medicine 09/11/21 documented as of this encounter
--- OUTSIDE RECORDS SUMMARY | 2024-09-01 14:04 | XMS_ITS | Encounter Summary ---
Author Organization [facility] [place] [address] Care Team Providers Care Computerized Machine Fabric Cutter Name Role Phone Paulino Finley MD Primary Care Provider [phone] Encounter Details Date Type Department Care Team (Late st Contact Info) Description 06/22/2024 Notes [place] [address] Casi Dong Social History Tobacco Use Types [...] 10:20 AM EST Office Visit [place] [address] Sriram Contreras MD [facility] [place] [address] 10/31/2024 1:30 PM EST Office Visit Hematology/Oncology at [address] [phone] Dmitry Bhatti MD [facility] DR HEMATOLOGY [place] [address] Ellen Mcrae APRN [facility] [place] [address] 10/31/2024 2:00 PM EST Infusion Hematology Oncology at [address] [phone] documented as of this encounter Visit Diagnoses Not on filedocumented in this encounter Care Teams Computerized Machine Fabric Cutter Relationship Specialty Start Date End Date Paulino Finley MD [address] [place] [address] PCP - General Emergency Medicine 09/11/21 documented as of this encounter
--- OUTSIDE RECORDS SUMMARY | 2024-09-01 14:04 | XMS_ITS | Encounter Summary ---
Author Organization [facility] [place] [address] Care Team Providers Care Campaign Marketing Specialist Name Role Phone Paulino Finley MD Primary Care Provider [phone] Encounter Details Date Type Department Care Team [...] 10:20 AM EST Office [place] [address] Sriram Contreras MD [facility] [place] [address] 10/31/2024 1:30 PM EST Office Visit Hematology/Oncology at [address] [phone] Dmitry Bhatti MD [facility] DR HEMATOLOGY [place] [address] Ellen Mcrae APRN [facility] [place] [address] 10/31/2024 2:00 PM EST Infusion Hematology Oncology at [address] [phone] documented as of this encounter Visit Diagnoses Not on filedocumented in this encounter Care Teams Campaign Marketing Specialist Relationship Specialty Start Date End Date Paulino Finley MD [address] [place] [address] PCP - General Emergency Medicine 09/11/21 documented as of this encounter
--- OUTSIDE RECORDS SUMMARY | 2024-09-01 14:04 | XMS_ITS | Encounter Summary ---
[place] [address] Care Team Providers Care Rice Farmer Name Role Phone Paulino Finley MD Primary Care Provider [phone] Reason for Visit * Reason Comments Injections IM Lupron * Treatment/Therapy Plan Authorization (Routine) - Authorized Specialty Diagnoses / Procedures Referred By Contac t Referred To Contact Hematology and Oncology Diagnoses Prostate cancer metastatic to multiple sites Procedures TC LEUPROLIDE ACETATE 7.5MG, FOR DEPOST SUSPENSION (LUPRON DEPOT) [id number] LUPRON DEPOT Dmitry Bhatti MD [address] [place] [address] DR HEMATOLOGY [place] [address] Dmitry Bhatti MD [address] [place] [address] DR HEMATOLOGY [place] [address] Referral ID Status Reason Start Date Expiration Date V isits Requested Visits Authorized [id number] Authorized 07/08/2023 08/01/2025 101 Encounter Details Date Type Department Care Team (Late st Contact Info) Description 02/01/2024 10:00 AM EDT Infusion Hematology Oncology at [address] [phone] Prostate cancer metastatic to multiple [...] 10:20 AM EST Office [place] [address] Sriram Contreras MD [facility] [place] [address] 10/31/2024 1:30 PM EST Office Visit Hematology/Oncology at [address] [phone] [address] [facility] DR HEMATOLOGY [place] [address] Ellen Mcrae APRN [facility] [place] [address] 10/31/2024 2:00 PM EST Infusion Hematology Oncology at [address] [phone] documented as of this encounter Visit Diagnoses [...] Gluteal documented in this encounter Care Teams Rice Farmer Relationship Specialty Start Date End Date Paulino Finley MD [address] [place] [address] PCP - General Emergency Medicine 09/11/21 documented as of this encounter
--- OUTSIDE RECORDS SUMMARY | 2024-09-01 14:04 | XMS_ITS | Encounter Summary ---
[place] [address] Care Team Providers Care Land Leveler Name Role Phone Paulino Finley MD Primary Care Provider [phone] Reason for Visit * Reason Comments Chemotherapy Injections * Treatment/Therapy Plan Authorization (Routine) - Authorized Specialty Diagnoses / Procedures Referred By Contac t Referred To Contact Hematology and Oncology Diagnoses prostate- 3 month fuv. labs prior- cbc/diff,cmp,psa,test. lupron to follow Lupron Procedures TC LEUPROLIDE ACETATE 7.5MG, FOR DEPOST SUSPENSION (LUPRON DEPOT) INFUSION ROOM Dmitry Bhatti MD [address] [place] [address] [place] [address] [facility] Hem Onc Infusion [address] [place] [phone] Referral ID Status Reason Start Date Expiration Date V isits Requested Visits Authorized [id number] Authorized 08/01/2024 08/01/2025 99 99 Encounter Details Date Type Department Care Team (Late st Contact Info) Description 08/01/2024 1:30 PM EDT Infusion Hematology Oncology at [address] [phone] Prostate cancer metastatic to multiple [...] 10:20 AM EST Office [place] [address] Sriram Contreras MD [facility] [place] [address] 10/31/2024 1:30 PM EST Office Visit Hematology/Oncology at [address] [phone] Dmitry Bhatti MD [facility] DR [place] [address] Ellen Mcrae APRN [facility] [place] [address] 10/31/2024 2:00 PM EST Infusion Hematology Oncology at [address] [phone] documented as of this encounter Visit Diagnoses [...] Gluteal documented in this encounter Care Teams Land Leveler Relationship Specialty Start Date End Date Paulino Finley MD [address] [place] [address] PCP - General Emergency Medicine 09/11/21 documented as of this encounter
--- OUTSIDE RECORDS SUMMARY | 2024-09-01 14:04 | XMS_ITS | Encounter Summary ---
Author Organization [facility] [address] Care Team Providers Care Hotel Engineer Name Role Phone Paulino Finley MD Primary Care Provider [phone] Encounter Details Date Type Department Care Team [...] 10:20 AM EST Office [place] [address] Sriram Contreras MD [facility] [place] [address] 10/31/2024 1:30 PM EST Office Visit Hematology/Oncology at [address] [phone] Dmitry Bhatti MD [facility] DR [place] [address] Ellen Mcrae APRN [facility] [place] [address] 10/31/2024 2:00 PM EST Infusion Hematology Oncology at [address] [phone] documented as of this encounter Visit Diagnoses Not on filedocumented in this encounter Care Teams Hotel Engineer Relationship Specialty Start Date End Date Paulino Finley MD [address] [place] [address] PCP - General Emergency Medicine 09/11/21 documented as of this encounter
--- OUTSIDE RECORDS SUMMARY | 2024-09-01 14:04 | XMS_ITS | Encounter Summary ---
Author Organization [facility] [place] [address] Care Team Providers Care Booth Supervisor Name Role Phone Paulino Finley MD Primary Care Provider [phone] Encounter Details Date Type Department Care Team (Late st Contact Info) Description 08/17/2024 Notes [place] [address] Casi Dong Social History Tobacco Use Types [...] 10:20 AM EST Office Visit [place] [address] Sriram Contreras MD [facility] [place] [address] 10/31/2024 1:30 PM EST Office Visit Hematology/Oncology at [address] [phone] Dmitry Bhatti MD [facility] [place] [address] Ellen Mcrae APRN [facility] [place] [address] 10/31/2024 2:00 PM EST Infusion Hematology Oncology at [address] [phone] documented as of this encounter Visit Diagnoses Not on filedocumented in this encounter Care Teams Booth Supervisor Relationship Specialty Start Date End Date Paulino Finley MD [address] [place] [address] PCP - General Emergency Medicine 09/11/21 documented as of this encounter
--- OUTSIDE RECORDS SUMMARY | 2024-09-01 14:04 | XMS_ITS | Clinical Summary ---
Author Organization [facility] Address [facility] [place] [address] Care Team Providers Care Transformer Assembler Name Role Phone Paulino Finley MD Primary Care Provider [phone] Allergies Active Allergy Reactions Criticality Noted Date [...] Team Description 08/17/2024 [place] [address] Casi Dong 08/07/2024 [place] [address] Casi Dong 08/01/2024 1:30 PM EDT Infusion Hematology Oncology at [address] [phone] Prostate cancer metastatic to multiple sites 08/01/2024 1:00 PM EDT Office Visit Hematology/Oncology at [address] [phone] Dmitry Bhatti MD Burns, Kimberly A, GILLIAN Prostate cancer metastatic to multiple sites; Androgen deprivation therapy; Fatigue, unspecified type; Hot flashes 07/31/2024 Travel 07/21/2024 Orders Only Hematology [place] [address] Patricia Partida 07/17/2024 [place] [address] Casi Dong 07/11/2024 [place] [address] Casi Dong 06/22/2024 [place] [address] Casi Dong from Last 3 Months Family [...] AM EST Office Visit [place] [address] Sriram Contreras MD [facility] [place] [address] 10/31/2024 1:30 PM EST Office Visit Hematology/Oncology at [address] [phone] Dmitry Bhatti MD [facility] DR [place] [address] Ellen Mcrae APRN [facility] [place] [address] 10/31/2024 2:00 PM EST Infusion Hematology Oncology at [address] [phone] Health Maintenance Due Date Last Done Comments [...] EDT) Glucose 73 65 - 199 mg/dL [facility] Comment:Diabetes: >=200 mg/d L plus symptoms Blood Urea Nitrogen 16 10 - 20 mg/dL [facility] Creatinine 1.12 0.80 - 1.50 mg/dL [facility] Sodium 143 135 - 145 mmol/L [facility] Potassium 4.4 3.5 - 5.0 mmol/L [facility] Comment: Please note: ??Patients with WBC >100,000 may have falsely elevated Potassium levels. ??For accurate Potassium quantification in these patients send serum separator tube (gold top) for subsequent determinations. ??Contact the Clinical Chemistry Laboratory if there are any questions. Chloride 109(H) 98 - 107 mmol/L [facility] Carbon Dioxide 24 22 - 31 mmol/L [facility] Anion Gap 10 5 - 15 mmol/L [facility] Calcium 9.4 8.5 - 10.5 mg/dL [facility] Protein, Total 7.2 6.1 - 8.0 g/dL [facility] Albumin 4.2 3.2 - 5.2 g/dL [facility] Aspartate Aminotransferase 17 0 - 39 unit/L [facility] Alanine Aminotransferase 17 0 - 55 unit/L [facility] Alkaline Phosphatase 407(H) 40 - 130 unit/L [facility] Bilirubin, Total 0.2 0.2 - 1.3 mg/dL [facility] Est Glomerular Filtration Rate 69 >=60 mL/min/1. 73 m?? [facility] Comment: This patient's estimated GFR [...] In Lab Dmitry Bhatti MD CHEMISTRY ORDERABLES [facility] [place] [address] from Last 3 Months or Most Recently Relevant to Health Maintenance Advance Directives Documents on File Type Date Recorded Patient Travel Counselor [employer] Aneta kwon Personal Travel Counselor [employer] 12/26/2018 9:00 AM lino bee - * [...] is based on Patient wishes. Care Teams Transformer Assembler Relationship Specialty Start Date End Date Paulino Finley MD [address] [place] [address] PCP - General Emergency Medicine 09/11/21
--- OUTSIDE RECORDS SUMMARY | 2024-09-01 14:04 | XMS_ITS | Encounter Summary ---
Author Organization [facility] [place] [address] Care Team Providers Care All Terrain Vehicle Racer Name Role Phone Paulino Finley MD Primary Care Provider [phone] Encounter Details Date Type Department Care Team (Late st Contact Info) Description 02/01/2024 9:30 AM EDT Office Visit Hematology/Oncology at [address] [phone] Dmitry Bhatti MD [facility] DR [place] [address] Ellne Mcrae APRN [facility] [place] [address] Malignant neoplasm of prostate metastatic to bone; [...] this encounter Progress Notes * Ellen Mcrae, RESIN COATER - 02/01/2024 9:30 AM EDT Images from [...] melgar was lanced with Ophthalmology. Follows with hand glass cutter Dr. Bah. He completed a course of [...] here with his today. They live in [place]. Medications: Your Medications Accurate as of February [...] adenocarcinoma, involving 1 of 1 core. - [place] score 5 + 4 = 9 (grade group 5), tumor extent 10 mm (80% of core). D. PROSTATE, RIGHT MID MEDIAL, NEEDLE CORE BIOPSY: - Prostatic adenocarcinoma, involving 1 of 1 core. - [place] score 4 + 5 = 9 (grade group 5), tumor extent 9 mm (80% of core). E. PROSTATE, RIGHT APEX LATERAL, NEEDLE CORE BIOPSY: - Prostatic adenocarcinoma, involving 1 of 1 core. - [place] score 5 + 4 = 9 (grade [...] adenocarcinoma, involving 1 of 1 core. - [place] score 3 + 5 = 8 (grade [...] Food and Drug Administration approved darolutamide (Nubeqa, [employer] tablets in combination with docetaxel for adult patients with metastatic hormone-sensitive prostate cancer (mHSPC). Efficacy was based on ARASENS ([id number]), a randomized, multicenter, double- blind, placebo-controlled clinical trial in 1306 patients with mHSPC. Patients were randomized to receive either darolutamide 600 mg orally twice daily plus docetaxel 75 mg/m2 intravenously administered every 3 weeks forup to 6 cycles or docetaxel plus placebo. All patients received a gonadotropin-releasing hormone analog concurrently or had a bilateral orchiectomy. The primary efficacy measure was overall survival (OS). Ovhe-te-gqdr progression was an additional efficacy measure. Median OS was not reached (NR) (95% CI: NR, NR) in the darolutamide plus docetaxelarm and 48.9 months (95% CI: 44.4, NR) in docetaxel plus placebo arm (HR 0.68; 95% CI: 0.57, 0.80; p<0.0001). Treatment with darolutamide and docetaxel resulted in a statistically significant delay in yrvb-ns-aojw progression (HR 0.79; 95% CI: 0.66, 0.95; [...] 10:20 AM EST Office [place] [address] Sriram Contreras MD [facility] [place] [address] 10/31/2024 1:30 PM EST Office Visit Hematology/Oncology at [address] [phone] Dmitry Bhatti MD [facility] DR [place] [address] Ellen Mcrae APRN [facility] [place] [address] 10/31/2024 2:00 PM EST Infusion Hematology Oncology at [address] [phone] documented as of this encounter Visit Diagnoses Diagnosis Malignant neoplasm of prostate metastatic to bone Malignant neoplasm of prostate Androgen deprivation therapy Encounter for therapeutic drug monitoring Fatigue, unspecified type documented in this encounter Care Teams All Terrain Vehicle Racer Relationship Specialty Start Date End Date Paulino Finley MD [address] [place] [address] PCP - General Emergency Medicine 09/11/21 documented as of this encounter
--- OUTSIDE RECORDS SUMMARY | 2024-09-01 14:04 | XMS_ITS | Encounter Summary ---
Author Organization [facility] [place] [address] Care Team Providers Care Orthotics Technician Name Role Phone Paulino Finley MD Primary Care Provider [phone] Encounter Details Date Type Department Care Team (Late st Contact Info) Description 07/11/2024 Notes Only [place] [phone] Casi Dong Social History Tobacco Use Types [...] the application for assistance with Nubeqa to [employer]. I will follow through once the jumpbasting machine operator program makes a decision. documented in this encounter Plan of Treatment Upcoming Encounters Date Type Department Care Team (Late st Contact Info) Description 09/18/2024 10:20 AM EST Office [place] [address] Sriram Contreras MD [facility] [place] [address] 10/31/2024 1:30 PM EST Office Visit Hematology/Oncology at [address] [phone] Dmitry Bhatti MD [facility] DR [place] [address] Ellen Mcrae APRN [facility] [place] [address] 10/31/2024 2:00 PM EST Infusion Hematology Oncology at [address] [phone] documented as of this encounter Visit Diagnoses Not on filedocumented in this encounter Care Teams Orthotics Technician Relationship Specialty Start Date End Date Paulino Finley MD [address] [place] [address] PCP - General Emergency Medicine 09/11/21 documented as of this encounter
--- OUTSIDE RECORDS SUMMARY | 2024-09-01 14:04 | XMS_ITS | Encounter Summary ---
[place] [address] Care Team Providers Care Claims Adjustor Name Role Phone Paulino Finley MD Primary Care Provider [phone] Encounter Details Date Type Department Care Team (Latest Contact Info) Description 01/10/2024 1:14 PM EST - 01/10/2024 11:59 PM EST Hospital Encounter Hematology [place] [address] Prostate cancer metastatic to multiple sites Discharge [...] 10:20 AM EST Office Visit [place] [address] Sriram Contreras MD [facility] [place] [address] 10/31/2024 1:30 PM EST Office Visit Hematology/Oncology at [address] [phone] Dmitry Bhatti MD [facility] DR HEMATOLOGY [place] [address] Ellen Mcrae APRN [facility] [place] [address] 10/31/2024 2:00 PM EST Infusion Hematology Oncology at [address] [phone] documented as of this encounter Procedures Procedure Name Priority Date/Time Associated Diagnosis Comments RESEARCH VENIPUNCTURE Routine 01/10/2024 1:22 PM EST Prostate cancer metastatic to multiple sites documented in this encounter Results * Research Venipuncture (01/10/2024 1:22 PM EST) Research Venipuncture Drawn [facility] Blood 01/10/2024 1:22 PM EST 01/10/2024 1:34 PM EST Narrative Resulting Agency Comment Spec In Lab Mey Tamez MD CHEMISTRY ORDERABLES Performing Organization Address City/State/[facility] Co de Phone Number [facility] [place] [address] documented in this encounter Visit Diagnoses Diagnosis Prostate cancer metastatic to multiple sites Malignant neoplasm of prostate documented in this encounter Care Teams Claims Adjustor Relationship Specialty Start Date End Date Paulino Finley MD [address] [place] [address] PCP - General Emergency Medicine 09/11/21 documented as of this encounter
--- OUTSIDE RECORDS SUMMARY | 2024-09-01 14:04 | XMS_ITS | Encounter Summary ---
Author Organization [facility] [place] [address] Care Team Providers Care Consumer Loan Specialist Name Role Phone Paulino Finley MD Primary Care Provider [phone] Encounter Details Date Type Department Care Team (Late st Contact Info) Description 07/17/2024 Notes [place] [address] Casi Dong Social History Tobacco Use Types [...] 10:20 AM EST Office [place] [address] Sriram Contreras MD [facility] [place] [address] 10/31/2024 1:30 PM EST Office Visit Hematology/Oncology at [address] [phone] Dmitry Bhatti MD [facility] DR [place] [address] Ellen Mcrae APRN [facility] [place] [address] 10/31/2024 2:00 PM EST Infusion Hematology Oncology at [address] [phone] documented as of this encounter Visit Diagnoses Not on filedocumented in this encounter Care Teams Consumer Loan Specialist Relationship Specialty Start Date End Date Paulino Finley MD [address] [place] [address] PCP - General Emergency Medicine 09/11/21 documented as of this encounter
--- OUTSIDE RECORDS SUMMARY | 2024-09-01 14:04 | XMS_ITS | Encounter Summary ---
Author Organization [facility] [place] [address] Care Team Providers Care Direct Mail Coordinator Name Role Phone Paulino Finley MD Primary Care Provider [phone] Encounter Details Date Type Department Care Team (Late st Contact Info) Description 08/01/2024 1:00 PM EDT Office Visit Hematology/Oncology at [address] [phone] [facility] DR [place] [address] [facility] [place] [address] Prostate cancer metastatic to multiple sites; Androgen [...] documented in this encounter Progress Notes * lElen Mcrae, SONAR WATCHSTANDER - 08/01/2024 1:00 PM EDT Images from [...] here with his today. They live in [place]. Medications: Your Medications Accurate as of August [...] adenocarcinoma, involving 1 of 1 core. - [place] score 4 + 5 = 9 (grade group 5), tumor extent 1 mm (15% of core). - Perineural invasion is identified. C. PROSTATE, RIGHT MID LATERAL, NEEDLE CORE BIOPSY: - Prostatic adenocarcinoma, involving 1 of 1 core. - [place] score 5 + 4 = 9 (grade [...] adenocarcinoma, involving 1 of 1 core. - [place] score 5 + 4 = 9 (grade [...] 3 = 7 (grade group 3), 70% [place] pattern 4, tumor extent 6 mm (40% of core). - Cribriform [place] pattern 4 is present. I. PROSTATE, LEFT MID LATERAL, NEEDLE CORE BIOPSY: - Prostatic adenocarcinoma, involving 1 of 1 core. - Marko score 3 + 5 = 8 (grade group 4), tumor extent 4 mm (30% of core). J. PROSTATE, LEFT MID MEDIAL, NEEDLE CORE BIOPSY: - Prostatic adenocarcinoma, involving 1 of 1 core. - [place] score 4 + 5 = 9 (grade [...] Food and Drug Administration approved darolutamide (Nubeqa, [employer] tablets in combination with docetaxel for adult patients with metastatic hormone-sensitive prostate cancer (mHSPC). Efficacy was based on ARASENS ([id number]), a randomized, multicenter, double- blind, placebo-controlled clinical trial in 1306 patients with mHSPC. Patients were randomized to receive either darolutamide 600 mg orally twice daily plus docetaxel 75 mg/m2 intravenously administered every 3 weeks forup to 6 cycles or docetaxel plus placebo. All patients received a gonadotropin-releasing hormone analog concurrently or had a bilateral orchiectomy. The primary efficacy measure was overall survival (OS). Sbop-dz-ibhn progression was an additional efficacy measure. Median OS was not reached (NR) (95% CI: NR, NR) in the darolutamide plus docetaxelarm and 48.9 months (95% CI: 44.4, NR) in docetaxel plus placebo arm (HR 0.68; 95% CI: 0.57, 0.80; p<0.0001). Treatment with darolutamide and docetaxel resulted in a statistically significant delay in ekcb-vr-xdab progression (HR 0.79; 95% CI: 0.66, 0.95; [...] was on hold for hx of hematuria. oJse was to have cystoscopy but this was [...] 10:20 AM EST Office [place] [address] [facility] [place] [address] 10/31/2024 1:30 PM EST Office Visit Hematology/Oncology at [address] [phone] D[address] [facility] DR [place] [address] [facility] [place] [address] 10/31/2024 2:00 PM EST Infusion Hematology Oncology at [address] [phone] documented as of this encounter Visit Diagnoses Diagnosis Prostate cancer metastatic to multiple sites Malignant neoplasm of prostate Androgen deprivation therapy Encounter for therapeutic drug monitoring Fatigue, unspecified type Hot flashes Symptomatic menopausal or female climacteric states documented in this encounter Care Teams Direct Mail Coordinator Relationship Specialty Start Date End Date Paulino Finley MD [address] [place] [address] PCP - General Emergency Medicine 09/11/21 documented as of this encounter
--- OUTSIDE RECORDS SUMMARY | 2024-09-01 14:04 | XMS_ITS | Encounter Summary ---
Author Organization [facility] [place] [address] Care Team Providers Care Expansion Joint Finisher Name Role Phone Paulino Finley MD Primary Care Provider [phone] Encounter Details Date Type Department Care Team (Late Contact Info) Description 07/21/2024 Orders Only Hematology [place] [address] Patricia Partida Social History Tobacco Use Types [...] 10:20 AM EST Office [place] [address] Sriram Contreras MD [facility] [place] [address] 10/31/2024 1:30 PM EST Office Visit Hematology/Oncology at [address] [phone] Dmitry Bhatti MD [facility] DR HEMATOLOGY [place] [address] Ellen Mcrae APRN [facility] [place] [address] 10/31/2024 2:00 PM EST Infusion Hematology Oncology at [address] [phone] documented as of this encounter Visit Diagnoses Not on filedocumented in this encounter Care Teams Expansion Joint Finisher Relationship Specialty Start Date End Date Paulino Finley MD [address] [place] [address] PCP - General Emergency Medicine 09/11/21 documented as of this encounter
--- OUTSIDE RECORDS SUMMARY | 2024-09-01 14:04 | XMS_ITS | Encounter Summary ---
Author Organization [facility] Address [facility] [place] [address] Care Team Providers Care Freezer Unloader Name Role Phone Paulino Finley MD Primary Care Provider [phone] Reason for Visit * Reason Comments Genetic Evaluation * Consultation (Urgent) - Closed Specialty Diagnoses / Procedures Referred By Huma valladares Referred To Contact Genetics Diagnoses Prostate cancer metastatic to multiple sites Dmitry Bhatti MD [facility] DR [place] [address] [facility] [address] [place] [address] Referral ID Status Reason Start Date Expiration Date V isits Requested Visits Authorized [id number] Closed Consult, Test & Treat 12/21/2023 12/20/2024 1 1 Encounter Details Date Type Department Care Team (Late st Contact Info) Description 01/10/2024 1:00 PM EST Office Visit Hematology [place] [address] Braeden Brown V [facility] Dr Hematology/[place] [address] Malignant neoplasm of prostate metastatic [...] adenocarcinoma, involving 1 of 1 core. - [place] score 4 + 5 = 9 (grade [...] adenocarcinoma, involving 1 of 1 core. - [place] score 5 + 4 = 9 (grade [...] 6 mm (40% of core). - Cribriform [place] pattern 4 is present. I. PROSTATE, LEFT MID LATERAL, NEEDLE CORE BIOPSY: - Prostatic adenocarcinoma, involving 1 of 1 core. - [place] score 3 + 5 = 8 (grade group 4), tumor extent 4 mm (30% of core). J. PROSTATE, LEFT MID MEDIAL, NEEDLE CORE BIOPSY: - Prostatic adenocarcinoma, involving 1 of 1 core. - [place] score 4 + 5 = 9 (grade [...] Cancer Paternal Aunt Maternal ethnic background is Bengali, Serbian. Paternal ethnic background is Bengali, Omani. There is no known Ashkenazi Sabianism ancestry. Genetic risk assessment Based on personal [...] at [email or web address]. Jose opted for testing with [facility]' CancerNext-Expanded +RNAinsight Panel, a next generation sequencing panel that simultaneously analyzes 71 genes, including BRCA1 and BRCA2, that contribute to increased risk for cancer. Jose was consented. His blood sample was drawn and sent to [facility]. Testing will take up to 3 weeks [...] 10:20 AM EST Office [place] [address] Sriram Contreras MD [facility] [place] [address] 10/31/2024 1:30 PM EST Office Visit Hematology/Oncology at [address] [phone] Dmitry Bhatti MD [facility] [place] [address] Ellen Mcrae APRN [facility] [place] [address] 10/31/2024 2:00 PM EST Infusion Hematology Oncology at [address] [phone] Scheduled Referrals Name Type Priority Associated Diagnoses [...] breast documented in this encounter Care Teams Freezer Unloader Relationship Specialty Start Date End Date Paulino Finley MD [address] [place] [address] PCP - General Emergency Medicine 09/11/21 documented as of this encounter
--- OUTSIDE RECORDS SUMMARY | 2024-09-01 14:04 | XMS_ITS | Encounter Summary ---
[place] [address] Care Team Providers Care Driller Machine Name Role Phone Paulino Finley MD Primary Care Provider [phone] Encounter Details Date Type Department Care Team (Late Contact Info) Description 03/27/2024 Telephone Hematology/Oncology at [address] [phone] Halima Cesar Social History Tobacco Use Types [...] 10:20 AM EST Office [place] [address] Sriram Contreras MD [facility] [place] [address] 10/31/2024 1:30 PM EST Office Visit Hematology/Oncology at [address] [phone] Dmitry Bhatti MD [facility] DR HEMATOLOGY [place] [address] Ellen Mcrae APRN [facility] [place] [address] 10/31/2024 2:00 PM EST Infusion Hematology Oncology at [address] [phone] documented as of this encounter Visit Diagnoses Not on filedocumented in this encounter Care Teams Driller Machine Relationship Specialty Start Date End Date Paulino Finley MD [address] [place] [address] PCP - General Emergency Medicine 09/11/21 documented as of this encounter
--- OUTSIDE RECORDS SUMMARY | 2024-09-01 14:04 | XMS_ITS | Encounter Summary ---
[place] [address] Care Team Providers Care Aging Department Supervisor Name Role Phone Paulino Finley MD Primary Care Provider [phone] Encounter Details Date Type Department Care Team (Late st Contact Info) Description 08/07/2024 Notes [place] [address] Casi Dong Social History Tobacco Use Types [...] 10:20 AM EST Office [place] [address] Sriram Contreras MD [facility] [place] [address] 10/31/2024 1:30 PM EST Office Visit Hematology/Oncology at [address] [phone] Dmitry Bhatti MD [facility] DR HEMATOLOGY [place] [address] Ellen Mcrae APRN [facility] [place] [address] 10/31/2024 2:00 PM EST Infusion Hematology Oncology at [address] [phone] documented as of this encounter Visit Diagnoses Not on filedocumented in this encounter Care Teams Aging Department Supervisor Relationship Specialty Start Date End Date Paulino Finley MD [address] [place] [address] PCP - General Emergency Medicine 09/11/21 documented as of this encounter
--- OUTSIDE RECORDS SUMMARY | 2024-09-01 14:04 | XMS_ITS | Encounter Summary ---
Author Organization [facility] [place] [address] Care Team Providers Care Note Taker Name Role Phone Paulino Finley MD Primary Care Provider [phone] Encounter Details Date Type Department Care Team [...] 10:20 AM EST Office [place] [address] Sriram Contreras MD [facility] [place] [address] 10/31/2024 1:30 PM EST Office Visit Hematology/Oncology at [address] [address] Dmitry Bhatti MD [facility] DR [place] [address] Ellen Mcrae APRN [facility] [place] [address] 10/31/2024 2:00 PM EST Infusion Hematology Oncology at [address] [phone] documented as of this encounter Visit Diagnoses Not on filedocumented in this encounter Care Teams Note Taker Relationship Specialty Start Date End Date Paulino Finley MD [address] [place] [address] PCP - General Emergency Medicine 09/11/21 documented as of this encounter
--- OUTSIDE RECORDS SUMMARY | 2024-09-01 14:04 | XMS_ITS | Encounter Summary ---
Author Organization [facility] [place] [address] Care Team Providers Care Instrument Tester Name Role Phone Paulino Finley MD Primary Care Provider [phone] Reason for Visit * Reason Onset Date Comments Results 02/02/2024 Encounter Details Date Type Department Care Team (Late st Contact Info) Description 02/02/2024 Telephone Hematology [place] [address] Braeden Brown V [facility] Dr Hematology/[place] [address] Results Social History Tobacco Use Types Packs/Day [...] results is provided below. Please beadvised that [place] law requires that all health care workers respect the confidentiality ofthis information and not pass it along to other health care providers, insurance companies, or individuals without the written permission of the patient. The [facility]amil[facility] Cancer Program welcomes any questions about these matters. Our phone number is: [phone]. On 01/10/2024 Jose was seen for genetic counseling and subsequently underwent genetic testing for a hereditary predisposition to cancers in eight major organ systems including breast, gynecologic,gastrointestinal, endocrine, genitourinary, skin, brain/nervous system, sarcoma and hematologic. Following are the results of this test. Result: [facility]'s CancerNext-Expanded +Vdolg Panel showed no mutation was detected. This means that Jose does not carry a mutation in the genes detectable by this test. The following 71 genes were analyzed: AIP, ALK, APC, KATHARINA, BAP1, BARD1, BMPR1A, BRCA1, BRCA2, BRIP1, CDC73, CDH1, CDK4, CDKN1B, CDKN2A, CHEK2, DICER1, FH, FLCN, KIF1B, LZTR1, MAX, MEN1, MET, MLH1, MSH2, MSH6, MUTYH, NF1, NF2, NTHL1, PALB2, PHOX2B, PMS2, POT1, FVERL2V, PTCH1, PTEN, RAD51C, RAD51D, RB1, RET, SDHA, SDHAF2, SDHB, SDHC,SDHD, SMAD4, SMARCA4, SMARCB1, SMARCE1, STK11, SUFU, BICL075, TP53, TSC1, TSC2 and VHL (sequencing and [...] the genes with no increased cancer risks. [employer] is continually collecting and analyzing their data, [...] and mailing address stay updated in the [facility] system, in order for us to [...] Periodic colonoscopy screening as recommended by Jose's balance wheel screw hole driller. Skin cancer screening Skin cancer screening and sun protection are important for everyone, regardless of genetic predisposition. Consideration of routine dermatologic/skin exams, as recommended by Jose's primary care provideror compliance quality performance analyst. documented in this encounter Plan of Treatment Upcoming Encounters Date Type Department Care Team (Late st Contact Info) Description 09/18/2024 10:20 AM EST Office [place] [phone] Sriram Contreras MD [facility] [place] [address] 10/31/2024 1:30 PM EST Office Visit Hematology/Oncology at [address] [phone] Dmitry Bhatti MD [facility] [place] [address] Ellen Mcrae APRN [facility] [place] [address] 10/31/2024 2:00 PM EST Infusion Hematology Oncology at [address] [phone] documented as of this encounter Visit Diagnoses Not on filedocumented in this encounter Care Teams Instrument Tester Relationship Specialty Start Date End Date Paulino Finley MD [address] [place] [address] PCP - General Emergency Medicine 09/11/21 documented as of this encounter
--- OUTSIDE RECORDS SUMMARY | 2024-09-01 14:05 | XMS_ITS | Encounter Summary ---
Author Organization [facility] [place] [address] Care Team Providers Care Sales Trader Name Role Phone Paulino Finley MD Primary Care Provider [phone] Encounter Details Date Type Department Care Team [...] 10:20 AM EST Office Visit [place] [address] Sriram Contreras MD [facility] [place] [address] 10/31/2024 1:30 PM EST Office Visit Hematology/Oncology at [address] [address] Dmitry Bhatti MD [facility] DR HEMATOLOGY [place] [address] Ellen Mcrae APRN [facility] [place] [address] 10/31/2024 2:00 PM EST Infusion Hematology Oncology at [address] [phone] documented as of this encounter Visit Diagnoses Not on filedocumented in this encounter Care Teams Sales Trader Relationship Specialty Start Date End Date Paulino Finley MD [address] [place] [address] PCP - General Emergency Medicine 09/11/21 documented as of this encounter
--- OUTSIDE RECORDS SUMMARY | 2024-09-01 14:05 | XMS_ITS | Encounter Summary ---
[place] [address] Care Team Providers Care Recruiting Coordinator Name Role Phone Paulino Finley MD Primary Care Provider [phone] Encounter Details Date Type Department Care Team (Latest Contact Info) Description 12/02/2023 10:00 AM EST Clinical Support Audiology at [address] [address] Ester Cardenas Asymmetrical sensorineural hearing loss Social [...] and domes. Removed debris from microphones and boilermaker fitter port. Replaced boilermaker fitter wire, left. Following the above measures, listening check of the hearing aids then found them to be in good working order. When speaking to patient left hearing aid started crackling. Brought hearing aid back and replaced the boilermaker fitter. Crackling stopped but again started back up [...] R Casing Color White White Serial Number [id number] Battery Size Rechargeable Rechargeable Invoice number/date [id number] 08/24/19 [id number] 08/24/19 Other Comments PROGRAM/SETTINGS Fitting Algorithm DSL [...] HELENA / Dome specifics Size 03 M boilermaker fitter small vented dome Size 03 M boilermaker fitter small vented dome Impression Date Invoice number/date Other Comments ACC[employer]ORIES Make/Model (color) Serial Number Warranty date Invoice number/date Settings Other Comments documented in this encounter Plan of Treatment Upcoming Encounters Date Type Department Care Team (Late st Contact Info) Description 09/18/2024 10:20 AM EST Office [place] [address] [facility] [place] [address] 10/31/2024 1:30 PM EST Office Visit Hematology/Oncology at [address] [phone] [facility] DR HEMATOLOGY [place] [address] [facility] [place] [address] 10/31/2024 2:00 PM EST Infusion Hematology Oncology at [address] [phone] documented as of this encounter Visit Diagnoses Diagnosis Asymmetrical sensorineural hearing loss Sensorineural hearing loss, asymmetrical documented in this encounter Care Teams Recruiting Coordinator Relationship Specialty Start Date End Date Paulino Finley MD [address] [place] [address] PCP - General Emergency Medicine 09/11/21 documented as of this encounter
--- OUTSIDE RECORDS SUMMARY | 2024-09-01 14:05 | XMS_ITS | Encounter Summary ---
Author Organization [facility] [place] [address] Care Team Providers Care Bird Cage Assembler Name Role Phone Paulino Finley MD Primary Care Provider [phone] Encounter Details Date Type Department Care Team [...] 10:20 AM EST Office Visit [place] [address] Sriram Contreras MD [facility] [place] [address] 10/31/2024 1:30 PM EST Office Visit Hematology/Oncology at [address] [address] Dmitry Bhatti MD [facility] DR HEMATOLOGY [place] [address] Ellen Mcrae APRN [facility] [place] [address] 10/31/2024 2:00 PM EST Infusion Hematology Oncology at [address] [phone] documented as of this encounter Visit Diagnoses Not on filedocumented in this encounter Care Teams Bird Cage Assembler Relationship Specialty Start Date End Date Paulino Finley MD [address] [place] [address] PCP - General Emergency Medicine 09/11/21 documented as of this encounter
--- OUTSIDE RECORDS SUMMARY | 2024-09-01 14:05 | XMS_ITS | Encounter Summary ---
Author Organization [facility] [place] [address] Care Team Providers Care Soil Technologist Name Role Phone Paulino Finley MD Primary Care Provider [phone] Encounter Details Date Type Department Care Team (Late Contact Info) Description 08/23/2023 Orders Only Hematology/Oncology at [address] [phone] Dmitry Bhatti MD [facility] DR [place] [address] Malignant neoplasm of prostate metastatic to bone; [...] 10:20 AM EST Office Visit [place] [address] Sriram Contreras MD [facility] [place] [address] 10/31/2024 1:30 PM EST Office Visit Hematology/Oncology at [address] [phone] Dmitry Bhatti MD [facility] DR [place] [address] Ellen Mcrae APRN [facility] [place] [address] 10/31/2024 2:00 PM EST Infusion Hematology Oncology at [address] [phone] documented as of this encounter Visit Diagnoses Diagnosis Malignant neoplasm of prostate metastatic to bone Malignant neoplasm of prostate Hematuria, unspecified type documented in this encounter Care Teams Soil Technologist Relationship Specialty Start Date End Date Paulino Finley MD [address] [place] [address] PCP - General Emergency Medicine 09/11/21 documented as of this encounter
--- OUTSIDE RECORDS SUMMARY | 2024-09-01 14:05 | XMS_ITS | Encounter Summary ---
Author Organization [facility] [place] [address] Care Team Providers Care Mica Plate Layer Name Role Phone Paulino Finley MD Primary Care Provider [phone] Encounter Details Date Type Department Care Team [...] 10:20 AM EST Office [place] [address] Sriram Contreras MD [facility] [place] [address] 10/31/2024 1:30 PM EST Office Visit Hematology/Oncology at [address] [address] Dmitry Bhatti MD [facility] [place] [address] Ellen Mcrae APRN [facility] [place] [address] 10/31/2024 2:00 PM EST Infusion Hematology Oncology at [address] [phone] documented as of this encounter Visit Diagnoses Not on filedocumented in this encounter Care Teams Mica Plate Layer Relationship Specialty Start Date End Date Paulino Finley MD [address] [place] [address] PCP - General Emergency Medicine 09/11/21 documented as of this encounter
--- OUTSIDE RECORDS SUMMARY | 2024-09-01 14:05 | XMS_ITS | Encounter Summary ---
Author Organization [facility] [place] [address] Care Team Providers Care Ornamental Metal Worker Name Role Phone Paulino Finley MD Primary Care Provider [phone] Encounter Details Date Type Department Care Team [...] 10:20 AM EST Office [place] [address] Sriram Contreras MD [facility] [place] [address] 10/31/2024 1:30 PM EST Office Visit Hematology/Oncology at [address] [address] Dmitry Bhatti MD [facility] DR [place] [address] Ellen Mcrae APRN [facility] [place] [address] 10/31/2024 2:00 PM EST Infusion Hematology Oncology at [address] [phone] documented as of this encounter Visit Diagnoses Not on filedocumented in this encounter Care Teams Ornamental Metal Worker Relationship Specialty Start Date End Date Paulino Finley MD [address] [place] [address] PCP - General Emergency Medicine 09/11/21 documented as of this encounter
--- OUTSIDE RECORDS SUMMARY | 2024-09-01 14:05 | XMS_ITS | Encounter Summary ---
Author Organization [facility] [place] [address] Care Team Providers Care Bullet Assembly Press Operator Name Role Phone Paulino Finley MD Primary Care Provider [phone] Encounter Details Date Type Department Care Team (Late st Contact Info) Description 01/03/2024 Orders Only [place]ematology [place] [address] Kayley Lynne, [facility] DR HEMATOLOGY [place] [address] Prostate cancer metastatic to multiple sites Social [...] 10:20 AM EST Office [place] [address] Sriram Contreras MD [facility] [place] [address] 10/31/2024 1:30 PM EST Office Visit Hematology/Oncology at [address] [phone] Dmitry Bhatti MD [facility] DR HEMATOLOGY [place] [address] Ellen Mcrae APRN [facility] [place] [address] 10/31/2024 2:00 PM EST Infusion Hematology Oncology at [address] [phone] documented as of this encounter Visit Diagnoses Diagnosis Prostate cancer metastatic to multiple sites Malignant neoplasm of prostate documented in this encounter Care Teams Bullet Assembly Press Operator Relationship Specialty Start Date End Date Paulino Finley MD [address] [place] [address] PCP - General Emergency Medicine 09/11/21 documented as of this encounter
--- OUTSIDE RECORDS SUMMARY | 2024-09-01 14:05 | XMS_ITS | Encounter Summary ---
Author Organization [facility] [place] [address] Care Team Providers Care Irish Moss Operator Name Role Phone Paulino Finley MD Primary Care Provider Encounter Details Date Type Department Care Team (Late st Contact Info) Description 09/03/2023 Orders Only Hematology and Oncology at [place] [phone] Dina Schrader APRN [facility] [place] [address] COVID-19 Social History Tobacco Use Types Packs/Day [...] 10:20 AM EST Office [place] [phone] Sriram Contreras MD [facility] [place] [address] 10/31/2024 1:30 PM EST Office Visit Hematology/Oncology at [address] [phone] Dmitry Bhatti MD [facility] DR [place] [address] Ellen Mcrae APRN [facility] [place] [address] 10/31/2024 2:00 PM EST Infusion Hematology Oncology at [address] [phone] documented as of this encounter Visit Diagnoses Diagnosis COVID-19 documented in this encounter Care Teams Irish Moss Operator Relationship Specialty Start Date End Date Paulino Finley MD [address] [place] [address] PCP - General Emergency Medicine 09/11/21 documented as of this encounter
--- OUTSIDE RECORDS SUMMARY | 2024-09-01 14:05 | XMS_ITS | Encounter Summary ---
Author Organization [facility] [place] [address] Care Team Providers Care Material Handler Loader Name Role Phone Paulino Finley MD Primary Care Provider [phone] Encounter Details Date Type Department Care Team (Late st Contact Info) Description 11/23/2023 1:00 PM EST Office Visit Hematology/Oncology at [address] [phone] Dmitry Bhatti MD [facility] DR [place] [address] Ellen Mcrae APRN [facility] [place] [address] Prostate cancer metastatic to multiple sites (Primary [...] here with his today. They live in [place]. Medications: Your Medications Accurate as of November [...] adenocarcinoma, involving 1 of 1 core. - Methow score 4 + 5 = 9 (grade [...] adenocarcinoma, involving 1 of 1 core. - Methow score 4 + 5 = 9 (grade group 5), tumor extent 9 mm (80% of core). E. PROSTATE, RIGHT APEX LATERAL, NEEDLE CORE BIOPSY: - Prostatic adenocarcinoma, involving 1 of 1 core. - Methow score 5 + 4 = 9 (grade group 5), tumor extent 16 mm (100% of core). - Perineural invasion is identified. F. PROSTATE, RIGHT APEX MEDIAL, NEEDLE CORE BIOPSY: - Prostatic adenocarcinoma, involving 1 of 1 core. - Methow score 5 + 4 = 9 (grade group 5), tumor extent 15 mm (95% of core). - Perineural invasion is identified. G. PROSTATE, LEFT BASE LATERAL, NEEDLE CORE BIOPSY: - Atypical small acinar proliferation (LOLITA), highly suspicious for minute focus (0.1 mm) of prostatic adenocarcinoma. H. PROSTATE, LEFT BASE MEDIAL, NEEDLE CORE BIOPSY: - Prostatic adenocarcinoma, involving 1 of 1 core. - Methow score 4 + 3 = 7 (grade group 3), 70% Methow pattern 4, tumor extent 6 mm (40% [...] adenocarcinoma, involving 1 of 1 core. - Methow score 4 + 5 = 9 (grade group 5), tumor extent 2 mm (15% of core). K. PROSTATE, LEFT APEX LATERAL, NEEDLE CORE BIOPSY: - Benign prostatic tissue. L. PROSTATE, LEFT APEX MEDIAL, NEEDLE CORE BIOPSY: - Prostatic adenocarcinoma, involving 1 of 1 core. - Methow score 5 + 4 = 9 (grade [...] Food and Drug Administration approved darolutamide (Nubeqa, [employer] tablets in combination with docetaxel for adult patients with metastatic hormone-sensitive prostate cancer (mHSPC). Efficacy was based on ARASENS ([id number]), a randomized, multicenter, double- blind, placebo-controlled clinical trial in 1306 patients with mHSPC. Patients were randomized to receive either darolutamide 600 mg orally twice daily plus docetaxel 75 mg/m2 intravenously administered every 3 weeks forup to 6 cycles or docetaxel plus placebo. All patients received a gonadotropin-releasing hormone analog concurrently or had a bilateral orchiectomy. The primary efficacy measure was overall survival (OS). Qmmx-db-sewi progression was an additional efficacy measure. Median OS was not reached (NR) (95% CI: NR, NR) in the darolutamide plus docetaxelarm and 48.9 months (95% CI: 44.4, NR) in docetaxel plus placebo arm (HR 0.68; 95% CI: 0.57, 0.80; p<0.0001). Treatment with darolutamide and docetaxel resulted in a statistically significant delay in hyxx-wi-eygo progression (HR 0.79; 95% CI: 0.66, 0.95; [...] AM EST Office [place] [address] Sriram Contreras MD [facility] [place] [address] 10/31/2024 1:30 PM EST Office Visit Hematology/Oncology at [address] [phone] Dmitry Bhatti MD [facility] [place] [address] Ellen cMrae APRN [facility] [place] [address] 10/31/2024 2:00 PM EST Infusion Hematology Oncology at [address] [phone] documented as of this encounter Visit Diagnoses Diagnosis Prostate cancer metastatic to multiple sites- Primary Malignant neoplasm of prostate Encounter for chemotherapy management Malignant neoplasm of prostate metastatic to bone Malignant neoplasm of prostate Fatigue, unspecified type Androgen deprivation therapy Encounter for therapeutic drug monitoring documented in this encounter Care Teams Material Handler Loader Relationship Specialty Start Date End Date Paulino Finley MD [address] [place] [address] PCP - General Emergency Medicine 09/11/21 documented as of this encounter
--- OUTSIDE RECORDS SUMMARY | 2024-09-01 14:05 | XMS_ITS | Encounter Summary ---
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 Procedures TC DOCETAXEL, 1MG, INJECTION TC PEGFILGRASTIM, EXCLUDES BIOSIMILAR, 0.5 MG, INJ J9171 DOCETAXEL J2506 NEULASTA ONPRO Dmitry Bhatti MD [address] [place] [address] DR [place] [address] Dmitry Bhatti MD [address] [place] [address] DR HEMATOLOGY [place] [address] Referral ID Status Reason Start Date Expiration Date Visits Re quested Visits Authorized [id number] Closed 07/08/2023 07/07/2024 99 99 Encounter Details Date Type Department Care Team (Late st Contact Info) Description 11/02/2023 1:30 PM EST Infusion Hematology Oncology at [address] [phone] Prostate cancer metastatic to multiple sites; Malignant [...] 10:20 AM EST Office [place] [address] Sriram Contreras MD [facility] [place] [address] 10/31/2024 1:30 PM EST Office Visit Hematology/Oncology at [address] [address] Dmitry Bhatti MD [facility] HEMATOLOGY [place] [address] Ellen Mcrae APRN [facility] DR MEDICAL ONCOLOGY [place] [address] 10/31/2024 2:00 PM EST Infusion Hematology Oncology at [address] [phone] documented as of this encounter [...] mL/hr documented in this encounter Care Teams Portrait Photographer Relationship Specialty Start Date End Date Paulino Finley MD [address] [place] [address] PCP - General Emergency Medicine 09/11/21 documented as of this encounter
--- OUTSIDE RECORDS SUMMARY | 2024-09-01 14:05 | XMS_ITS | Encounter Summary ---
Author Organization [facility] [place] [address] Care Team Providers Care Souvenir Street Vendor Name Role Phone Paulino Finley MD Primary Care Provider [phone] Encounter Details Date Type Department Care Team (Late st Contact Info) Description 09/23/2023 Notes Only Hematology/Oncology at [address] [phone] Ellen Mcrae APRN [facility] [place] [address] Social History Tobacco Use Types Packs/Day Years [...] 10:20 AM EST Office Visit [place] [address] Sriram Contreras MD [facility] [place] [place] [address] 10/31/2024 1:30 PM EST Office Visit Hematology/Oncology at [address] [phone] Dmitry Bhatti MD [facility] DR [place] [address] Ellen Mcrae APRN [facility] [place] [address] 10/31/2024 2:00 PM EST Infusion Hematology Oncology at [address] [phone] documented as of this encounter Visit Diagnoses Not on filedocumented in this encounter Care Teams Souvenir Street Vendor Relationship Specialty Start Date End Date Paulino Finley MD [address] [place] [address] PCP - General Emergency Medicine 09/11/21 documented as of this encounter
--- OUTSIDE RECORDS SUMMARY | 2024-09-01 14:05 | XMS_ITS | Encounter Summary ---
Author Organization [facility] [place] [address] Care Team Providers Care Fly Fishing Guide Name Role Phone Paulino Finley MD Primary Care Provider [phone] Encounter Details Date Type Department Care Team [...] 10:20 AM EST Office Visit [place] [address] Sriram Contreras MD [facility] [place] [address] 10/31/2024 1:30 PM EST Office Visit Hematology/Oncology at [address] [phone] Dmitry Bhatti MD [facility] DR HEMATOLOGY [place] [address] Ellen Mcrae APRN [facility] [place] [address] 10/31/2024 2:00 PM EST Infusion Hematology Oncology at [address] [phone] documented as of this encounter Visit Diagnoses Not on filedocumented in this encounter Care Teams Fly Fishing Guide Relationship Specialty Start Date End Date Paulino Finley MD [address] [place] [address] PCP - General Emergency Medicine 09/11/21 documented as of this encounter
--- OUTSIDE RECORDS SUMMARY | 2024-09-01 14:05 | XMS_ITS | Encounter Summary ---
[place] [address] Care Team Providers Care Ammonia Distiller Name Role Phone Paulino Finley MD Primary Care Provider [phone] Reason for Visit * Reason Onset Date Comments Hematuria 08/23/2023 Visual blood in urine Encounter Details Date Type Department Care Team (Late st Contact Info) Description 08/23/2023 Telephone Hematology/Oncology at [address] [phone] Debo Antunez RN Hematuria (Visual [...] call back, best call back number is [phone] documented in this encounter Plan of Treatment Upcoming Encounters Date Type Department Care Team (Late st Contact Info) Description 09/18/2024 10:20 AM EST Office Visit [place] [address] Sriram Contreras MD [facility] [place] [address] 10/31/2024 1:30 PM EST Office Visit Hematology/Oncology at [address] [phone] Dmitry Steven MD [facility] DR [place] [address] Ellen Mcrae APRN [facility] [place] [address] 10/31/2024 2:00 PM EST Infusion Hematology Oncology at [address] [phone] documented as of this encounter Visit Diagnoses Diagnosis Hematuria, unspecified type- Primary documented in this encounter Care Teams Ammonia Distiller Relationship Specialty Start Date End Date Paulino Finley MD [address] [place] [address] PCP - General Emergency Medicine 09/11/21 documented as of this encounter
--- OUTSIDE RECORDS SUMMARY | 2024-09-01 14:05 | XMS_ITS | Encounter Summary ---
[place] [address] Care Team Providers Care Barrel Reamer Name Role Phone Paulino Finley MD Primary Care Provider [phone] Reason for Visit * Reason Onset Date Comments Eye Problem 11/19/2023 Encounter Details Date Type Department Care Team (Late st Contact Info) Description 11/19/2023 Telephone Hematology/Oncology at [address] [phone] Shad Hernandez RN Eye Problem [...] who reports he went to PCP in [place] and believe he hasstye and advised warm [...] make an appointment with his PCP in [place] for today, hopefully. Please call him back and answer any concerns he has about this. [phone] documented in this encounter Plan of Treatment Upcoming Encounters Date Type Department Care Team (Late st Contact Info) Description 09/18/2024 10:20 AM EST Office Visit [place] [address] Sriram Contreras MD [facility] [place] [address] 10/31/2024 1:30 PM EST Office Visit Hematology/Oncology at [address] [phone] Dmitry Bhatti MD [facility] DR HEMATOLOGY [place] [address] Ellen Mcrae APRN [facility] [place] [address] 10/31/2024 2:00 PM EST Infusion Hematology Oncology at [address] [phone] documented as of this encounter Visit Diagnoses Not on filedocumented in this encounter Care Teams Barrel Reamer Relationship Specialty Start Date End Date Paulino Finley MD [address] [place] [address] PCP - General Emergency Medicine 09/11/21 documented as of this encounter
--- OUTSIDE RECORDS SUMMARY | 2024-09-01 14:05 | XMS_ITS | Encounter Summary ---
Author Organization [facility] [place] [address] Care Team Providers Care Leadership Program Associate Name Role Phone Paulino Finley MD Primary Care Provider [phone] Encounter Details Date Type Department Care Team [...] 10:20 AM EST Office [place] [address] Sriram Contreras MD [facility] [place] [address] 10/31/2024 1:30 PM EST Office Visit Hematology/Oncology at [address] [phone] Dmitry Bhatti MD [facility] DR [place] [address] Ellen Mcrae APRN [facility] [place] [address] 10/31/2024 2:00 PM EST Infusion Hematology Oncology at [address] [phone] documented as of this encounter Visit Diagnoses Not on filedocumented in this encounter Care Teams Leadership Program Associate Relationship Specialty Start Date End Date Paulino Finley MD [address] [place] [address] PCP - General Emergency Medicine 09/11/21 documented as of this encounter
--- OUTSIDE RECORDS SUMMARY | 2024-09-01 14:05 | XMS_ITS | Encounter Summary ---
Author Organization [facility] [place] [address] Care Team Providers Care Program Support Assistant Name Role Phone Paulino Finley MD Primary Care Provider Encounter Details Date Type Department Care Team (Late st Contact Info) Description 09/09/2023 Notes Only Hematology/Oncology at [address] [phone] Dina Schrader APRN [facility] [place] [address] Social History Tobacco Use Types Packs/Day Years [...] 10:20 AM EST Office [place] [address] Sriram Contreras MD [facility] [address] 10/31/2024 1:30 PM EST Office Visit Hematology/Oncology at [address] [phone] Dmitry Bhatti MD [facility] DR HEMATOLOGY [place] [address] Ellen Mcrae APRN [facility] [place] [address] 10/31/2024 2:00 PM EST Infusion Hematology Oncology at [address] [phone] documented as of this encounter Visit Diagnoses Not on filedocumented in this encounter Care Teams Program Support Assistant Relationship Specialty Start Date End Date Paulino Finley MD [address] [place] [address] PCP - General Emergency Medicine 09/11/21 documented as of this encounter
--- OUTSIDE RECORDS SUMMARY | 2024-09-01 14:05 | XMS_ITS | Encounter Summary ---
Author Organization [facility] [place] [address] Care Team Providers Care Wood Router Hand Name Role Phone Paulino Finley MD Primary Care Provider [phone] Encounter Details Date Type Department Care Team [...] 10:20 AM EST Office [place] [address] Sriram Contreras MD [facility] [place] [address] 10/31/2024 1:30 PM EST Office Visit Hematology/Oncology at [address] [phone] Dmitry Bhatti MD [facility] DR HEMATOLOGY [place] [address] Ellen Mcrae APRN [facility] [place] [address] 10/31/2024 2:00 PM EST Infusion Hematology Oncology at [address] [phone] documented as of this encounter Visit Diagnoses Not on filedocumented in this encounter Care Teams Wood Router Hand Relationship Specialty Start Date End Date Paulino Finley MD [address] [place] [address] PCP - General Emergency Medicine 09/11/21 documented as of this encounter
--- OUTSIDE RECORDS SUMMARY | 2024-09-01 14:05 | XMS_ITS | Encounter Summary ---
Author Organization [facility] Address [facility] [place] [address] Care Team Providers Care Support Assistant Name Role Phone Paulino Finley MD Primary Care Provider [phone] Reason for Visit * Reason Comments Follow-up Throat is ok, no con cerns at this time. Encounter Details Date Type Department Care Team (Late st Contact Info) Description 09/13/2023 10:00 AM EST Office [place] [address] Sriram Contreras MD [facility] [place] [place] [address] Cancer of base of tongue Social History [...] Neck Surgery Clinic Follow Up Note Jose eBe is a 72 y.o. male followed for: [...] the TelePack Unit and uploaded to the [employer] Grinding Wheel Facer. Findings Nasal cavity normal Nasopharynx normal Oropharynx [...] 10:20 AM EST Office [place] [address] Sriram Contreras MD [facility] [place] [address] 10/31/2024 1:30 PM EST Office Visit Hematology/Oncology at [address] [phone] Dmitry Bhatti MD [facility] DR [place] [address] Ellen Mcrae APRN [facility] [place] [address] 10/31/2024 2:00 PM EST Infusion Hematology Oncology at [address] [phone] documented as of this encounter Visit Diagnoses Diagnosis 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
--- OUTSIDE RECORDS SUMMARY | 2024-09-01 14:05 | XMS_ITS | Encounter Summary ---
[place] [address] Care Team Providers Care Client Relationship Consultant Name Role Phone Paulino Finley MD Primary Care Provider [phone] Reason for Visit * Reason Comments Chemotherapy [...] DOCETAXEL J2506 NEULASTA ONPRO Dmitry Bhatti MD [address] [place] [address] DR [place] [address] Dmitry Bhatti MD [address] [place] [address] DR [place] [address] Referral ID Status Reason Start Date Expiration Date Visits Re quested Visits Authorized [id number] Closed 07/08/2023 07/07/2024 99 99 Encounter Details Date Type Department Care Team (Late st Contact Info) Description 09/21/2023 12:00 PM EST Infusion Hematology Oncology at [address] [phone] Prostate cancer metastatic to multiple sites; Malignant [...] 10:20 AM EST Office [place] [address] Sriram Contreras MD [facility] [place] [address] 10/31/2024 1:30 PM EST Office Visit Hematology/Oncology at [address] [phone] Dmitry Bhatti MD [facility] HEMATOLOGY [place] [address] Ellen Mcrae APRN [facility] [place] [address] 10/31/2024 2:00 PM EST Infusion Hematology Oncology at [address] [phone] documented as of this encounter [...] mL/hr documented in this encounter Care Teams Client Relationship Consultant Relationship Specialty Start Date End Date Paulino Finley MD [address] [place] [address] PCP - General Emergency Medicine 09/11/21 documented as of this encounter
--- OUTSIDE RECORDS SUMMARY | 2024-09-01 14:05 | XMS_ITS | Encounter Summary ---
Author Organization Formerly [facility] [place] [address] Care Team Providers Care Adjunct Nursing Faculty Name Role Phone Paulino Finley MD Primary Care Provider [phone] Encounter Details Date Type Department Care Team [...] 10:20 AM EST Office [place] [address] Sriram Contreras MD [facility] OTOLARYNGOLOGY [address] 10/31/2024 1:30 PM EST Office Visit Hematology/Oncology at [address] [phone] Dmitry Bhatti MD [facility] DR HEMATOLOGY AND ONCOLOGY [address] Ellen Mcrae APRN [facility] [place] [address] 10/31/2024 2:00 PM EST Infusion Hematology Oncology at [address] [phone] documented as of this encounter Visit Diagnoses Not on filedocumented in this encounter Care Teams Adjunct Nursing Faculty Relationship Specialty Start Date End Date Paulino Finley MD [address] [place] [address] PCP - General Emergency Medicine 09/11/21 documented as of this encounter
--- OUTSIDE RECORDS SUMMARY | 2024-09-01 14:05 | XMS_ITS | Encounter Summary ---
[place] [address] Care Team Providers Care Prototype Machine Operator Name Role Phone Paulino Finley MD Primary Care Provider [phone] Encounter Details Date Type Department Care Team (Late st Contact Info) Description 08/24/2023 Telephone Hematology/Oncology at [address] [phone] Asuncion Valencia RN Social History [...] they didn't order the test. He uses [facility] in [facility]. He is also wondering if he should [...] Received results of UA done today at [facility] and reviewed with Dr. Bhatti. UA showed: Neg Leukocytes. Large amount of blood. C&S is being done. Recommendations/Plan: Discussed with Dr. Bhatti. Would like patient to contact urologist for management. Patient is established with urology at [facility] (Nichol/Lenin). Dr. Bhatti feels that the [...] next week with Magy Contact urology at [facility] to make appt for evaluation. Mr. Bee agrees with plan above. Nursing to follow-up on results of C&S later this week and review with Dr. Bhatti. documented in this encounter Plan of Treatment Upcoming Encounters Date Type Department Care Team (Late st Contact Info) Description 09/18/2024 10:20 AM EST Office [place] [address] Sriram Contreras MD [facility] [place] [address] 10/31/2024 1:30 PM EST Office Visit Hematology/Oncology at [address] [phone] Dmitry Bhatti MD [facility] DR HEMATOLOGY [place] [address] Ellen Mcrae APRN [facility] [place] [address] 10/31/2024 2:00 PM EST Infusion Hematology Oncology at [address] [phone] documented as of this encounter Procedures Procedure [...] on filedocumented in this encounter Care Teams Prototype Machine Operator Relationship Specialty Start Date End Date Paulino Finley MD [address] [place] [address] PCP - General Emergency Medicine 09/11/21 documented as of this encounter
--- OUTSIDE RECORDS SUMMARY | 2024-09-01 14:05 | XMS_ITS | Encounter Summary ---
Author Organization [facility] [place] [address] Care Team Providers Care It Systems Engineer Name Role Phone Paulino Finley MD Primary Care Provider [phone] Encounter Details Date Type Department Care Team (Late st Contact Info) Description 01/05/2024 Orders Only Hematology and Oncology at [place] [phone] [facility] Dr Hematology/[place] [address] Prostate cancer metastatic to multiple sites Social [...] 10:20 AM EST Office [place] [phone] Sriram Contreras MD [facility] [place] [address] 10/31/2024 1:30 PM EST Office Visit Hematology/Oncology at [address] [phone] Dmitry Bhatti MD [facility] [place] [address] Ellen Mcrae APRN [facility] [place] [address] 10/31/2024 2:00 PM EST Infusion Hematology Oncology at [address] [phone] documented as of this encounter Results * Research Venipuncture (01/10/2024 1:22 PM EST) Research Venipuncture Drawn [facility] Blood 01/10/2024 1:22 PM EST 01/10/2024 1:34 PM EST Narrative Resulting Agency Comment Spec In Lab Mey Tamez MD CHEMISTRY ORDERABLES [facility] [place] [address] documented in this encounter Visit Diagnoses Diagnosis Prostate cancer metastatic to multiple sites Malignant neoplasm of prostate documented in this encounter Care Teams It Systems Engineer Relationship Specialty Start Date End Date Paulino Finley MD [address] [place] [address] PCP - General Emergency Medicine 09/11/21 documented as of this encounter
--- OUTSIDE RECORDS SUMMARY | 2024-09-01 14:05 | XMS_ITS | Encounter Summary ---
Author Organization [facility] [place] [address] Care Team Providers Care Housekeeper Head Name Role Phone Paulino Finley MD Primary Care Provider [phone] Encounter Details Date Type Department Care Team [...] 10:20 AM EST Office [place] [address] Sriram Contreras MD [facility] [place] [address] 10/31/2024 1:30 PM EST Office Visit Hematology/Oncology at [address] [phone] Dmitry Bhatti MD [facility] DR [place] [address] Ellen Mcrae APRN [facility] [place] [address] 10/31/2024 2:00 PM EST Infusion Hematology Oncology at [address] [phone] documented as of this encounter Visit Diagnoses Not on filedocumented in this encounter Care Teams Housekeeper Head Relationship Specialty Start Date End Date Paulino Finley MD [address] [place] [address] PCP - General Emergency Medicine 09/11/21 documented as of this encounter
--- OUTSIDE RECORDS SUMMARY | 2024-09-01 14:05 | XMS_ITS | Encounter Summary ---
Author Organization [facility] [place] [address] Care Team Providers Care Educational Technology Coordinator Name Role Phone Paulino Finley MD Primary Care Provider [phone] Encounter Details Date Type Department Care Team (Late st Contact Info) Description 09/07/2023 [place] [address] Casi Dong Social History Tobacco Use Types [...] 09/07/2023 9:55 AM EDT Call placed to [employer] [facility] regarding paperwork that Jose received about renewal. I confirmed that Jose is enrolled in the program through 08/06/2024 and the insurance sales representative advised that the paperwork was sent out in error. Call placed to patient, spoke to spouse, advised he is enrolled through 08/06/2024 and he does not need to complete re enrollment paperwork, per [employer]. documented in this encounter Plan of Treatment Upcoming Encounters Date Type Department Care Team (Late st Contact Info) Description 09/18/2024 10:20 AM EST Office [place] [address] Sriram Contreras MD [facility] [place] [address] 10/31/2024 1:30 PM EST Office Visit Hematology/Oncology at [address] [phone] Dmitry Bhatti MD [facility] DR [place] [address] Ellen Mcrae APRN [facility] [place] [address] 10/31/2024 2:00 PM EST Infusion Hematology Oncology at [address] [phone] documented as of this encounter Visit Diagnoses Not on filedocumented in this encounter Care Teams Educational Technology Coordinator Relationship Specialty Start Date End Date Paulino Finley MD [address] [place] [address] PCP - General Emergency Medicine 09/11/21 documented as of this encounter
--- OUTSIDE RECORDS SUMMARY | 2024-09-01 14:05 | XMS_ITS | Encounter Summary ---
Author Organization Formerly [facility] [place] [address] Care Team Providers Care Check And Transfer Beader Name Role Phone Paulino Finley MD Primary Care Provider [phone] Encounter Details Date Type Department Care Team (Late st Contact Info) Description 08/31/2023 11:00 AM EDT Office Visit Hematology/Oncology at [address] [phone] Dmitry Bhatti MD [facility] DR HEMATOLOGY [place] [address] Dina Schrader APRN [facility] [place] [address] Malignant neoplasm of prostate metastatic to bone [...] on May 13. Pathology revealed prostatic adenocarcinoma [place] 5+4. Staging CT abdomen and pelvis and [...] fibrillation March 2017: noted in ED in [facility]. Previously noted to be paroxysmal. 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 He is to Briana for 40 yrs. 4 children - All live in different states - [place] Wang Enjoys raising Beef Cattle and doing Civil War and Living History and shoot Black powder/Antique firearms. He enjoys builiding Firearms/Blacksmithing - Charcoal, Forbes, etc. Social Determinants of Health Financial Resource [...] adenocarcinoma, involving 1 of 1 core. - [place] score 4 + 5 = 9 (grade [...] adenocarcinoma, involving 1 of 1 core. - [place] score 5 + 4 = 9 (grade [...] adenocarcinoma, involving 1 of 1 core. - [place] score 3 + 5 = 8 (grade [...] adenocarcinoma, involving 1 of 1 core. - [place] score 5 + 4 = 9 (grade [...] Food and Drug Administration approved darolutamide (Nubeqa, [employer] tablets in combination with docetaxel for adult patients with metastatic hormone-sensitive prostate cancer (mHSPC). Efficacy was based on ARASENS ([id number]), a randomized, multicenter, double- blind, placebo-controlled clinical trial in 1306 patients with mHSPC. Patients were randomized to receive either darolutamide 600 mg orally twice daily plus docetaxel 75 mg/m2 intravenously administered every 3 weeks forup to 6 cycles or docetaxel plus placebo. All patients received a gonadotropin-releasing hormone analog concurrently or had a bilateral orchiectomy. The primary efficacy measure was overall survival (OS). Trqe-wh-cnsb progression was an additional efficacy measure. Median OS was not reached (NR) (95% CI: NR, NR) in the darolutamide plus docetaxelarm and 48.9 months (95% CI: 44.4, NR) in docetaxel plus placebo arm (HR 0.68; 95% CI: 0.57, 0.80; p<0.0001). Treatment with darolutamide and docetaxel resulted in a statistically significant delay in ongm-bo-giju progression (HR 0.79; 95% CI: 0.66, 0.95; [...] 10:20 AM EST Office [place] [address] Sriram Contreras MD [facility] [place] [address] 10/31/2024 1:30 PM EST Office Visit Hematology/Oncology at [address] [phone] Dmitry Bhatti MD [facility] DR HEMATOLOGY [place] [address] Ellen Mcrae APRN [facility] [place] [address] 10/31/2024 2:00 PM EST Infusion Hematology Oncology at [address] [phone] documented as of this encounter Visit Diagnoses Diagnosis Malignant neoplasm of prostate metastatic to bone Malignant neoplasm of prostate documented in this encounter Care Teams Check And Transfer Beader Relationship Specialty Start Date End Date Paulino Finley MD [address] [place] [address] PCP - General Emergency Medicine 09/11/21 documented as of this encounter
--- OUTSIDE RECORDS SUMMARY | 2024-09-01 14:05 | XMS_ITS | Encounter Summary ---
[place] [address] Care Team Providers Care Automatic Outsole Cutter Name Role Phone Paulino Finley MD Primary Care Provider [phone] Reason for Visit * Reason Comments Chemotherapy [...] DOCETAXEL [id number] NEULASTA ONPRO Dmitry Bhatti MD [address] [place] [address] [place] [address] Dmitry Bhatti MD [address] [place] [address] [place] [address] Referral ID Status Reason Start Date Expiration Date Visits Re quested Visits Authorized [id number] Closed 07/08/2023 07/07/2024 99 99 Encounter Details Date Type Department Care Team (Late st Contact Info) Description 10/12/2023 9:30 AM EST Infusion Hematology Oncology at [address] [phone] Prostate cancer metastatic to multiple sites; Malignant [...] 10:20 AM EST Office [place] [address] Sriram Contreras MD [facility] [place] [address] 10/31/2024 1:30 PM EST Office Visit Hematology/Oncology at [address] [phone] Dmitry Bhatti MD [facility] DR [place] [address] Ellen Mcrae APRN [facility] [place] [address] 10/31/2024 2:00 PM EST Infusion Hematology Oncology at [address] [phone] documented as of this encounter Visit Diagnoses [...] mL/hr documented in this encounter Care Teams Automatic Outsole Cutter Relationship Specialty Start Date End Date Paulino Finley MD [address] [place] [address] PCP - General Emergency Medicine 09/11/21 documented as of this encounter
--- OUTSIDE RECORDS SUMMARY | 2024-09-01 14:05 | XMS_ITS | Encounter Summary ---
Author Organization [facility] [place] [address] Care Team Providers Care Superintendent Construction Name Role Phone Paulino Finley MD Primary Care Provider [phone] Encounter Details Date Type Department Care Team [...] 10:20 AM EST Office Visit [place] [address] [facility] [place] [address] 10/31/2024 1:30 PM EST Office Visit Hematology/Oncology at [address] [address] [facility] DR [place] [address] [facility] [place] [address] 10/31/2024 2:00 PM EST Infusion Hematology Oncology at [address] [phone] documented as of this encounter Visit Diagnoses Not on filedocumented in this encounter Care Teams Superintendent Construction Relationship Specialty Start Date End Date Paulino Finley MD [address] [place] [address] PCP - General Emergency Medicine 09/11/21 documented as of this encounter
--- OUTSIDE RECORDS SUMMARY | 2024-09-01 14:05 | XMS_ITS | Encounter Summary ---
[place] [address] Care Team Providers Care Surveyor Chain Helper Name Role Phone Paulino Finley MD Primary Care Provider [phone] Reason for Visit * Reason Comments Specialty Pharmacy Review Nubeqa 300mg t ablet Encounter Details Date Type Department Care Team (Late st Contact Info) Description 01/04/2024 Specialty [place] [address] Jeannie Villatoro, [facility] Social History Tobacco Use Types Packs/Day Years [...] Villatoro - 01/04/2024 11:59 PM EST The [facility] has completed a benefits investigation for Jose Bee to reviewtheir eligibility to fill at [facility]. Per patient's medication list they are prescribed Nubeqa 300mg tablet and the medication is able to be filled at the [facility], but the medication cost may not be financially viable. The patient is eligible to fill the medication through [facility] with a high copay. No PA required. Due to the high copay, the patient has been referred to [facility] for braid maker assistance. documented in this encounter Plan of Treatment Upcoming Encounters Date Type Department Care Team (Late st Contact Info) Description 09/18/2024 10:20 AM EST Office [place] [address] Sriram Contreras MD [facility] [place] [address] 10/31/2024 1:30 PM EST Office Visit Hematology/Oncology at [address] [phone] Dmitry Bhatti MD [facility] DR HEMATOLOGY [place] [address] Ellen Mcrae APRN [facility] [place] [address] 10/31/2024 2:00 PM EST Infusion Hematology Oncology at [address] [phone] documented as of this encounter Visit Diagnoses Not on filedocumented in this encounter Care Teams Surveyor Chain Helper Relationship Specialty Start Date End Date Paulino Finley MD [address] [place] [address] PCP - General Emergency Medicine 09/11/21 documented as of this encounter
--- OUTSIDE RECORDS SUMMARY | 2024-09-01 14:05 | XMS_ITS | Encounter Summary ---
Author Organization [facility] [place] [address] Care Team Providers Care Caramel Coloring Operator Name Role Phone Paulino Finley MD Primary Care Provider [phone] Encounter Details Date Type Department Care [...] 10:20 AM EST Office [place] [address] Sriram Contreras MD [facility] [place] [address] 10/31/2024 1:30 PM EST Office Visit Hematology/Oncology at [address] [phone] Dmitry Bhatti MD [facility] DR [place] [address] Ellen Mcrae APRN [facility] [place] [address] 10/31/2024 2:00 PM EST Infusion Hematology Oncology at [address] [phone] documented as of this encounter Visit Diagnoses Not on filedocumented in this encounter Care Teams Caramel Coloring Operator Relationship Specialty Start Date End Date Paulino Finley MD [address] [place] [address] PCP - General Emergency Medicine 09/11/21 documented as of this encounter
--- OUTSIDE RECORDS SUMMARY | 2024-09-01 14:05 | XMS_ITS | Encounter Summary ---
Author Organization Formerly [facility] [place] [address] Care Team Providers Care Beam Worker Name Role Phone Paulino Finley MD Primary Care Provider [phone] Encounter Details Date Type Department Care Team (Late st Contact Info) Description 11/02/2023 1:00 PM EST Office Visit Hematology/Oncology at [address] [phone] Dmitry Bhatti MD [facility] [place] [address] Ellen Mcrae APRN [facility] [place] [address] Prostate cancer metastatic to multiple sites; Encounter [...] encounter Progress Notes * Ellen Mcrae Darnell, AUTOBODY TECHNICIAN - 11/02/2023 1:00 PM EST Images from [...] on May 13. Pathology revealed prostatic adenocarcinoma Gratis 5+4. Staging CT abdomen and pelvis and [...] here with his today. They live in [place]. Medications: Your Medications Accurate as of November [...] adenocarcinoma, involving 1 of 1 core. - Gratis score 4 + 5 = 9 (grade group 5), tumor extent 1 mm (15% of core). - Perineural invasion is identified. C. PROSTATE, RIGHT MID LATERAL, NEEDLE CORE BIOPSY: - Prostatic adenocarcinoma, involving 1 of 1 core. - Gratis score 5 + 4 = 9 (grade [...] 3 = 7 (grade group 3), 70% Gratis pattern 4, tumor extent 6 mm (40% of core). - Cribriform Gratis pattern 4 is present. I. PROSTATE, LEFT MID LATERAL, NEEDLE CORE BIOPSY: - Prostatic adenocarcinoma, involving 1 of 1 core. - Gratis score 3 + 5 = 8 (grade group 4), tumor extent 4 mm (30% of core). J. PROSTATE, LEFT MID MEDIAL, NEEDLE CORE BIOPSY: - Prostatic adenocarcinoma, involving 1 of 1 core. - Gratis score 4 + 5 = 9 (grade [...] Food and Drug Administration approved darolutamide (Nubeqa, [employer] tablets in combination with docetaxel for adult patients with metastatic hormone-sensitive prostate cancer (mHSPC). Efficacy was based on ARASENS ([id number]), a randomized, multicenter, double- blind, placebo-controlled clinical trial in 1306 patients with mHSPC. Patients were randomized to receive either darolutamide 600 mg orally twice daily plus docetaxel 75 mg/m2 intravenously administered every 3 weeks forup to 6 cycles or docetaxel plus placebo. All patients received a gonadotropin-releasing hormone analog concurrently or had a bilateral orchiectomy. The primary efficacy measure was overall survival (OS). Tikx-eo-eygr progression was an additional efficacy measure. Median OS was not reached (NR) (95% CI: NR, NR) in the darolutamide plus docetaxelarm and 48.9 months (95% CI: 44.4, NR) in docetaxel plus placebo arm (HR 0.68; 95% CI: 0.57, 0.80; p<0.0001). Treatment with darolutamide and docetaxel resulted in a statistically significant delay in nlxj-eb-qvis progression (HR 0.79; 95% CI: 0.66, 0.95; [...] and hypocalcemia. The recommended darolutamide dose for [facility] is 600 mg (two 300 mg [...] AM EST Office [place] [address] Sriram Contreras MD [facility] [place] [address] 10/31/2024 1:30 PM EST Office Visit Hematology/Oncology at [address] [phone] Dmitry Bhatti MD [facility] [place] [address] Ellen Mcrae APRN [facility] [place] [address] 10/31/2024 2:00 PM EST Infusion Hematology Oncology at [address] [phone] documented as of this encounter Visit Diagnoses Diagnosis Prostate cancer metastatic to multiple sites Malignant neoplasm of prostate Encounter for chemotherapy management Fatigue, unspecified type documented in this encounter Care Teams Beam Worker Relationship Specialty Start Date End Date Paulino Finley MD [address] [place] [address] PCP - General Emergency Medicine 09/11/21 documented as of this encounter
--- OUTSIDE RECORDS SUMMARY | 2024-09-01 14:05 | XMS_ITS | Encounter Summary ---
Author Organization Formerly [facility] [place] [address] Care Team Providers Care Count Team Clerk Name Role Phone Paulino Finley MD Primary Care Provider [phone] Encounter Details Date Type Department Care Team [...] 10:20 AM EST Office [place] [address] Sriram Contreras MD [facility] [place] [address] 10/31/2024 1:30 PM EST Office Visit Hematology/Oncology at [address] [phone] Dmitry Bhatti MD [facility] DR [place] [address] Ellen Mcrae APRN [facility] [place] [address] 10/31/2024 2:00 PM EST Infusion Hematology Oncology at [address] [phone] documented as of this encounter Visit Diagnoses Not on filedocumented in this encounter Care Teams Count Team Clerk Relationship Specialty Start Date End Date Paulino Finley MD [address] [place] [address] PCP - General Emergency Medicine 09/11/21 documented as of this encounter
--- OUTSIDE RECORDS SUMMARY | 2024-09-01 14:05 | XMS_ITS | Encounter Summary ---
Author Organization [facility] [place] [address] Care Team Providers Care Crankshaft Straightener Name Role Phone Paulino Finley MD Primary Care Provider [phone] Encounter Details Date Type Department Care Team [...] 10:20 AM EST Office [place] [address] Sriram Contreras MD [facility] [place] [address] 10/31/2024 1:30 PM EST Office Visit Hematology/Oncology at [address] [phone] Dmitry Bhatti MD [facility] DR HEMATOLOGY [place] [address] Ellen Mcrae APRN [facility] [place] [address] 10/31/2024 2:00 PM EST Infusion Hematology Oncology at [address] [phone] documented as of this encounter Visit Diagnoses Not on filedocumented in this encounter Care Teams Crankshaft Straightener Relationship Specialty Start Date End Date Paulino Finley MD [address] [place] [address] PCP - General Emergency Medicine 09/11/21 documented as of this encounter
--- OUTSIDE RECORDS SUMMARY | 2024-09-01 14:05 | XMS_ITS | Encounter Summary ---
Author Organization [facility] [place] [address] Care Team Providers Care Packing House Supervisor Name Role Phone Paulino Finley MD Primary Care Provider [phone] Encounter Details Date Type Department Care Team (Late st Contact Info) Description 10/12/2023 9:00 AM EST Office Visit Hematology/Oncology at [address] [phone] Dmitry Bhatti MD [facility] DR [place] [address] Ellen Mcrae APRN [facility] [place] [address] Prostate cancer metastatic to multiple sites; Hematuria, [...] on May 13. Pathology revealed prostatic adenocarcinoma [place] 5+4. Staging CT abdomen and pelvis and [...] here with his today. They live in [place]. Medications: Your Medications Accurate as of October [...] 1 of 1 core. - [place] score 3 + 5 = 8 (grade [...] Food and Drug Administration approved darolutamide (Nubeqa, [employer] tablets in combination with docetaxel for adult patients with metastatic hormone-sensitive prostate cancer (mHSPC). Efficacy was based on ARASENS ([id number]), a randomized, multicenter, double- blind, placebo-controlled clinical trial in 1306 patients with mHSPC. Patients were randomized to receive either darolutamide 600 mg orally twice daily plus docetaxel 75 mg/m2 intravenously administered every 3 weeks forup to 6 cycles or docetaxel plus placebo. All patients received a gonadotropin-releasing hormone analog concurrently or had a bilateral orchiectomy. The primary efficacy measure was overall survival (OS). Flju-wk-euwl progression was an additional efficacy measure. Median OS was not reached (NR) (95% CI: NR, NR) in the darolutamide plus docetaxelarm and 48.9 months (95% CI: 44.4, NR) in docetaxel plus placebo arm (HR 0.68; 95% CI: 0.57, 0.80; p<0.0001). Treatment with darolutamide and docetaxel resulted in a statistically significant delay in bewr-yt-xuje progression (HR 0.79; 95% CI: 0.66, 0.95; [...] and hypocalcemia. The recommended darolutamide dose for [facility] is 600 mg (two 300 [...] 10:20 AM EST Office [place] [address] Sriram Contreras MD [facility] [place] [address] 10/31/2024 1:30 PM EST Office Visit Hematology/Oncology at [address] [phone] Dmitry Bhatti MD [facility] DR [place] [address] Ellen Mcrae APRN [facility] [place] [address] 10/31/2024 2:00 PM EST Infusion Hematology Oncology at [address] [phone] documented as of this encounter Visit Diagnoses Diagnosis Prostate cancer metastatic to multiple sites Malignant neoplasm of prostate Hematuria, unspecified type Androgen deprivation therapy Encounter for therapeutic drug monitoring Encounter for chemotherapy management documented in this encounter Care Teams Packing House Supervisor Relationship Specialty Start Date End Date Paulino Finley MD [address] [place] [address] PCP - General Emergency Medicine 09/11/21 documented as of this encounter
--- OUTSIDE RECORDS SUMMARY | 2024-09-01 14:05 | XMS_ITS | Encounter Summary ---
Author Organization [facility] [place] [address] Care Team Providers Care Scourer Name Role Phone Paulino Finley MD Primary Care Provider [phone] Encounter Details Date Type Department Care Team (Late st Contact Info) Description 12/15/2023 Ancillary Procedure Radiology Library at [facility] [place] [address] Dmitry Bhatti MD [facility] HEMATOLOGY [place] [address] Social History Tobacco Use Types Packs/Day Years [...] 10:20 AM EST Office Visit Otolaryngology at [facility] [place] [address] Sriram Contreras MD [facility] [place] [address] 10/31/2024 1:30 PM EST Office Visit Hematology/Oncology at [address] [phone] Dmitry Bhatti MD [facility] DR HEMATOLOGY [place] [address] Ellen Mcrae APRN [facility] DR [place]ICAL [place] [address] 10/31/2024 2:00 PM EST Infusion Hematology Oncology at [address] [phone] documented as of this encounter Procedures Procedure Name Priority Date/Time Associated Diagnosis Comments FILM LIBRARY STORAGE ONLY CT CHEST ABDOMEN PELVIS Routine 12/15/2023 12:00 AM EST documented in this encounter Results * Film Library- Storage Only CT Chest Abdomen Pelvis (12/15/2023 12:00 AM EST) Narrative [facility] - 12/21/2023 10:45 AM EST This exam is auto-finalizing. It's purpose is for storage only. Dmitry Bhatti MD IMG FILM LIBRARY ORD ERABLES Performing Organization Address City/State/[facility] Co de Phone Number [place], [place] documented in this encounter Visit Diagnoses Not on filedocumented in this encounter Care Teams Scourer Relationship Specialty Start Date End Date Paulino Finley MD [address] [place] [address] PCP - General Emergency Medicine 09/11/21 documented as of this encounter
--- OUTSIDE RECORDS SUMMARY | 2024-09-01 14:05 | XMS_ITS | Encounter Summary ---
[place] [address] Care Team Providers Care Treadle Cut Off Saw Operator Name Role Phone Paulino Finley MD Primary Care Provider [phone] Reason for Visit * Reason Comments Chemotherapy [...] DOCETAXEL J2506 NEULASTA ONPRO Dmitry Bhatti MD [address] [place] [address] DR HEMATOLOGY [place] [address] Dmitry Bhatti MD [address] [place] [address] DR HEMATOLOGY [place] [address] Referral ID Status Reason Start Date Expiration Date Visits Re quested Visits Authorized [id number] Closed 07/08/2023 07/07/2024 99 99 Encounter Details Date Type Department Care Team (Late st Contact Info) Description 08/31/2023 11:30 AM EDT Infusion Hematology Oncology at [address] [phone] Prostate cancer metastatic to multiple sites; Malignant [...] 10:20 AM EST Office [place] [address] Sriram Contreras MD [facility] [place] [address] 10/31/2024 1:30 PM EST Office Visit Hematology/Oncology at [address] [phone] Dmitry Bhatti MD [facility] DR HEMATOLOGY [place] [address] Ellen Mcrae APRN [facility] [place] [address] 10/31/2024 2:00 PM EST Infusion Hematology Oncology at [address] [phone] documented as of this encounter [...] mL/hr documented in this encounter Care Teams Treadle Cut Off Saw Operator Relationship Specialty Start Date End Date Paulino Finley MD [address] [place] [address] PCP - General Emergency Medicine 09/11/21 documented as of this encounter
--- OUTSIDE RECORDS SUMMARY | 2024-09-01 14:05 | XMS_ITS | Encounter Summary ---
Author Organization [facility] [place] [address] Care Team Providers Care Tea Tree Farmer Name Role Phone Paulino Finley MD Primary Care Provider [phone] Encounter Details Date Type Department Care Team (Late st Contact Info) Description 09/21/2023 11:30 AM EST Office Visit Hematology/Oncology at [address] [phone] Ellen Mcrae APRN [facility] [place] [address] Prostate cancer metastatic to multiple sites; Hematuria, [...] here with his today. They live in [place]. Medications: Your Medications Accurate as of September [...] adenocarcinoma, involving 1 of 1 core. - Pinnacle score 4 + 5 = 9 (grade group 5), tumor extent 1 mm (15% of core). - Perineural invasion is identified. C. PROSTATE, RIGHT MID LATERAL, NEEDLE CORE BIOPSY: - Prostatic adenocarcinoma, involving 1 of 1 core. - Pinnacle score 5 + 4 = 9 (grade group 5), tumor extent 10 mm (80% of core). D. PROSTATE, RIGHT MID MEDIAL, NEEDLE CORE BIOPSY: - Prostatic adenocarcinoma, involving 1 of 1 core. - Pinnacle score 4 + 5 = 9 (grade [...] adenocarcinoma, involving 1 of 1 core. - Pinnacle score 4 + 5 = 9 (grade [...] Food and Drug Administration approved darolutamide (Nubeqa, [employer] tablets in combination with docetaxel for adult patients with metastatic hormone-sensitive prostate cancer (mHSPC). Efficacy was based on ARASENS ([id number]), a randomized, multicenter, double- blind, placebo-controlled clinical trial in 1306 patients with mHSPC. Patients were randomized to receive either darolutamide 600 mg orally twice daily plus docetaxel 75 mg/m2 intravenously administered every 3 weeks forup to 6 cycles or docetaxel plus placebo. All patients received a gonadotropin-releasing hormone analog concurrently or had a bilateral orchiectomy. The primary efficacy measure was overall survival (OS). Pfrj-si-bguq progression was an additional efficacy measure. Median OS was not reached (NR) (95% CI: NR, NR) in the darolutamide plus docetaxelarm and 48.9 months (95% CI: 44.4, NR) in docetaxel plus placebo arm (HR 0.68; 95% CI: 0.57, 0.80; p<0.0001). Treatment with darolutamide and docetaxel resulted in a statistically significant delay in iikq-hb-rppg progression (HR 0.79; 95% CI: 0.66, 0.95; [...] and hypocalcemia. The recommended darolutamide dose for [facility] is 600 mg (two 300 mg [...] 10:20 AM EST Office Visit [place] [address] Sriram Contreras MD [facility] [place] [address] 10/31/2024 1:30 PM EST Office Visit Hematology/Oncology at [address] [phone] Dmitry Bhatti MD [facility] [place] [address] Ellen Mcrae APRN [facility] [place] [address] 10/31/2024 2:00 PM EST Infusion Hematology Oncology at [address] [phone] documented as of this encounter Visit Diagnoses Diagnosis Prostate cancer metastatic to multiple sites Malignant neoplasm of prostate Hematuria, unspecified type documented in this encounter Care Teams Tea Tree Farmer Relationship Specialty Start Date End Date Paulino Finley MD [address] [place] [address] PCP - General Emergency Medicine 09/11/21 documented as of this encounter
--- OUTSIDE RECORDS SUMMARY | 2024-09-01 14:05 | XMS_ITS | Encounter Summary ---
Author Organization Formerly [facility] [place] [address] Care Team Providers Care Applications Engineering Manager Name Role Phone Paulino Finley MD Primary Care Provider [phone] Encounter Details Date Type Department Care Team (Late st Contact Info) Description 12/15/2023 12:05 AM EST Ancillary Procedure Radiology Library at [facility] [place] [phone] Dmitry Bhatti MD [facility] [place] [address] Social History Tobacco Use Types Packs/Day Years [...] 10:20 AM EST Office Visit Otolaryngology at [facility] [place] [phone] Sriram Contreras MD [facility] [place] [address] 10/31/2024 1:30 PM EST Office Visit Hematology/Oncology at [address] [phone] Dmitry Bhatti MD [facility] [place] [address] Ellen Mcrae APRN [facility] [place] [place] [address] 10/31/2024 2:00 PM EST Infusion Hematology Oncology at [address] [phone] documented as of this encounter Procedures Procedure Name Priority Date/Time Associated Diagnosis Comments FILM LIBRARY STORAGE ONLY NUCLEAR MEDICINE Routine 12/15/2023 12:05 AM EST documented in this encounter Results * Film Library- Storage Only nuclear medicine (12/15/2023 12:05 AM EST) Narrative [facility] - 12/21/2023 10:46 AM EST This exam is auto-finalizing. It's purpose is for storage only. Dmitry Bhatti MD IMG FILM LIBRARY ORD ERABLES Performing Organization Address City/State/[facility] Co de Phone Number [place], [place] documented in this encounter Visit Diagnoses Not on filedocumented in this encounter Care Teams Applications Engineering Manager Relationship Specialty Start Date End Date Paulino Finley MD [address] [place] [address] PCP - General Emergency Medicine 09/11/21 documented as of this encounter
--- OUTSIDE RECORDS SUMMARY | 2024-09-01 14:05 | XMS_ITS | Encounter Summary ---
Author Organization [facility] [place] [address] Care Team Providers Care Auto Body Customizer Name Role Phone Paulino Finley MD Primary Care Provider [phone] Encounter Details Date Type Department Care Team [...] 10:20 AM EST Office [place] [address] Sriram Contreras MD [facility] [address] 10/31/2024 1:30 PM EST Office Visit Hematology/Oncology at [address] [phone] Dmitry Bhatti MD [facility] DR [place] [address] Ellen Mcrae APRN [facility] [place] [address] 10/31/2024 2:00 PM EST Infusion Hematology Oncology at [address] [phone] documented as of this encounter Visit Diagnoses Not on filedocumented in this encounter Care Teams Auto Body Customizer Relationship Specialty Start Date End Date Paulino Finley MD [address] [place] [address] PCP - General Emergency Medicine 09/11/21 documented as of this encounter
--- OUTSIDE RECORDS SUMMARY | 2024-09-01 14:05 | XMS_ITS | Encounter Summary ---
Author Organization [facility] [place] [address] Care Team Providers Care Entry Level Account Representative Name Role Phone Paulino Finley MD Primary Care Provider [phone] Encounter Details Date Type Department Care Team [...] 10:20 AM EST Office [place] [address] Sriram Contreras MD [facility] [place] [address] 10/31/2024 1:30 PM EST Office Visit Hematology/Oncology at [address] [phone] Dmitry Bhatti MD [facility] [place] [address] Ellen Mcrae APRN [facility] [place] [address] 10/31/2024 2:00 PM EST Infusion Hematology Oncology at [address] [phone] documented as of this encounter Visit Diagnoses Not on filedocumented in this encounter Care Teams Entry Level Account Representative Relationship Specialty Start Date End Date Paulino Finley MD [address] [place] [address] PCP - General Emergency Medicine 09/11/21 documented as of this encounter
--- OUTSIDE RECORDS SUMMARY | 2024-09-01 14:05 | XMS_ITS | Encounter Summary ---
[place] [address] Care Team Providers Care Belt Cutter Name Role Phone Paulino Finley MD Primary Care Provider [phone] Reason for Visit * Reason Onset Date Comments Public Health Screening 09/03/2023 COVID Encounter Details Date Type Department Care Team (Late st Contact Info) Description 09/03/2023 Telephone Hematology/Oncology at [address] [phone] Meghan Odonnell RN Public Health Screening (COVID) [...] notes frequent urination. Saw Dr. Phelps at [facility] urology yesterday, they had a planned a [...] a flu/cold medication? Best call back number [phone] documented in this encounter Plan of Treatment Upcoming Encounters Date Type Department Care Team (Late st Contact Info) Description 09/18/2024 10:20 AM EST Office Visit [place] [address] Sriram Contreras MD [facility] [place] [address] 10/31/2024 1:30 PM EST Office Visit Hematology/Oncology at [address] [phone] Dmitry Bhatti MD [facility] DR HEMATOLOGY [place] [address] Ellen Mcrae APRN [facility] [place] [address] 10/31/2024 2:00 PM EST Infusion Hematology Oncology at [address] [phone] documented as of this encounter Visit Diagnoses Not on filedocumented in this encounter Care Teams Belt Cutter Relationship Specialty Start Date End Date Paulino Finley MD [address] [place] [address] PCP - General Emergency Medicine 09/11/21 documented as of this encounter
--- OUTSIDE RECORDS SUMMARY | 2024-09-01 14:05 | XMS_ITS | Encounter Summary ---
[place] [address] Care Team Providers Care Applications Systems Engineer Name Role Phone Paulino Finley MD Primary Care Provider [phone] Reason for Visit * Reason Onset Date Comments Diarrhea 12/03/2023 Follow-up 12/03/2023 diarrhea Encounter Details Date Type Department Care Team (Late st Contact Info) Description 12/03/2023 Telephone Hematology/Oncology at [address] [phone] Aby Del Rio, RN Diarrhea; [...] 100mg BID x7days on 11/24, prescribed by educational speech language clinician. He has finished that prescription, but continues to have diarrhea. He denies fever, abdominal pain/cramping, dark stools/blood in stool, dark yellow urine. Sometimes the urge to go is sudden and he needs to mccabe to a bathroom. He has not tried anything. He is going to try imodium a-d. If he does not see improvement or has worsening symptoms he knows to call [facility] on-call over the weekend. We will call [...] 10:20 AM EST Office [place] [address] Sriram Contreras MD [facility] [place]OLARY[place] [address] 10/31/2024 1:30 PM EST Office Visit Hematology/Oncology at [address] [phone] Dmitry Bhatti MD [facility] DR HEMATOLOGY AND [place] [address] Ellen Mcrae APRN [facility] DR MEDICAL [place] [address] 10/31/2024 2:00 PM EST Infusion Hematology Oncology at [address] [phone] documented as of this encounter Visit Diagnoses Not on filedocumented in this encounter Care Teams Applications Systems Engineer Relationship Specialty Start Date End Date Paulino Finley MD [address] [place] [address] PCP - General Emergency Medicine 09/11/21 documented as of this encounter
--- OUTSIDE RECORDS SUMMARY | 2024-09-01 14:05 | XMS_ITS | Encounter Summary ---
Author Organization [facility] [place] [address] Care Team Providers Care Aircraft Ordnance Systems Mechanic Name Role Phone Paulino Finley MD Primary Care Provider [phone] Encounter Details Date Type Department Care [...] 10:20 AM EST Office [place] [address] Sriram Contreras MD [facility] [place] [address] 10/31/2024 1:30 PM EST Office Visit Hematology/Oncology at [address] [phone] Dmitry Bhatti MD [facility] [place] [address] Ellen cMrae APRN [facility] [place] [address] 10/31/2024 2:00 PM EST Infusion Hematology Oncology at [address] [phone] documented as of this encounter Visit Diagnoses Not on filedocumented in this encounter Care Teams Aircraft Ordnance Systems Mechanic Relationship Specialty Start Date End Date Paulino Finley MD [address] [place] [address] PCP - General Emergency Medicine 09/11/21 documented as of this encounter
--- OUTSIDE RECORDS SUMMARY | 2024-09-01 14:05 | XMS_ITS | Encounter Summary ---
[place] [address] Care Team Providers Care Industrial Relations Officer Name Role Phone Paulino Finley MD Primary Care Provider [phone] Reason for Visit * Reason Onset Date Comments Questions 11/25/2023 Encounter Details Date Type Department Care Team (Late st Contact Info) Description 11/25/2023 Telephone Hematology/Oncology at [address] [phone] Shad Hernandez, BRENNA Questions Social [...] 8:38 AM EST Called and reported to [facility] that ABT of either type to [...] Webb Sent: 11/24/2023 8:48 AM EST To: [facility] Hem Onc Nurse Irene from [facility] called. They need to make know if any of the antibiotics they prescribefor him will have any counter effects with his current medications. [phone] documented in this encounter Plan of Treatment Upcoming Encounters Date Type Department Care Team (Late st Contact Info) Description 09/18/2024 10:20 AM EST Office Visit [place] [address] Sriram Contreras MD [facility] [place] [address] 10/31/2024 1:30 PM EST Office Visit Hematology/Oncology at [address] [phone] Dmitry Bhatti MD [facility] [place] [address] Ellen Mcrae APRN [facility] [place] [address] 10/31/2024 2:00 PM EST Infusion Hematology Oncology at [address] [phone] documented as of this encounter Visit Diagnoses Not on filedocumented in this encounter Care Teams Industrial Relations Officer Relationship Specialty Start Date End Date Paulino Finley MD [address] [place] [address] PCP - General Emergency Medicine 09/11/21 documented as of this encounter
--- OUTSIDE RECORDS SUMMARY | 2024-09-01 14:05 | XMS_ITS | Encounter Summary ---
[place] [address] Care Team Providers Care Health And Safety Director Name Role Phone Paulino Finley MD Primary Care Provider [phone] Encounter Details Date Type Department Care Team (Late st Contact Info) Description 11/26/2023 Telephone Hematology [place] [phone] [place] Social History Tobacco Use Types [...] PM EST Procedure Prior Authorization Procedure/Cpt: Cpt 59253, 87441 Rationale: C61 Health Plan: [facility] Authorizing Vendor: Service Order/ Authorization #: Effective Date: 11/26/2023 - 01/24/2024 Status: Approved Rendering Facility: [facility] [id number] PA not required documented in this encounter Plan of Treatment Upcoming Encounters Date Type Department Care Team (Late st Contact Info) Description 09/18/2024 10:20 AM EST Office Visit [place] [address] Sriram Contreras MD [facility] [place] [address] 10/31/2024 1:30 PM EST Office Visit Hematology/Oncology at [address] [phone] Dmitry Bhatti MD [facility] [place] [address] Ellen Mcrae APRN [facility] [place] [address] 10/31/2024 2:00 PM EST Infusion Hematology Oncology at [address] [phone] documented as of this encounter Visit Diagnoses Not on filedocumented in this encounter Care Teams Health And Safety Director Relationship Specialty Start Date End Date Paulino Finley MD [address] [place] [address] PCP - General Emergency Medicine 09/11/21 documented as of this encounter
--- OUTSIDE RECORDS SUMMARY | 2024-09-01 14:05 | XMS_ITS | Encounter Summary ---
[place] [address] Care Team Providers Care Instrument Technician Name Role Phone Paulino Finley MD Primary Care Provider [phone] Reason for Visit * Reason Comments Chemotherapy [...] DOCETAXEL J2506 NEULASTA ONPRO Dmitry Bhatti MD [address] [place] [address] DR HEMATOLOGY [place] [address] Dmitry Bhatti MD [address] [place] [address] DR HEMATOLOGY [place] [address] Referral ID Status Reason Start Date Expiration Date Visits Re quested Visits Authorized [id number] Closed 07/08/2023 07/07/2024 99 99 Encounter Details Date Type Department Care Team (Late st Contact Info) Description 11/23/2023 1:30 PM EST Infusion Hematology Oncology at [address] [phone] Prostate cancer metastatic to multiple sites; Malignant [...] 10:20 AM EST Office [place] [address] Sriram Contreras MD [facility] [address] 10/31/2024 1:30 PM EST Office Visit Hematology/Oncology at [address] [phone] Dmitry Bhatti MD [facility] HEMATOLOGY [place] [address] Ellen Mcrae APRN [facility] [place] [address] 10/31/2024 2:00 PM EST Infusion Hematology Oncology at [address] [phone] documented as of this encounter [...] mL/hr documented in this encounter Care Teams Instrument Technician Relationship Specialty Start Date End Date Paulino Finley MD [address] [place] [address] PCP - General Emergency Medicine 09/11/21 documented as of this encounter
--- OUTSIDE RECORDS SUMMARY | 2024-09-01 14:05 | XMS_ITS | Encounter Summary ---
Author Organization [facility] [place] [address] Care Team Providers Care Sausage Stringer Name Role Phone Paulino Finley MD Primary Care Provider Reason for Referral * Consultation (Urgent) - Closed Specialty Diagnoses / Procedures Referred By Huma valladares Referred To Contact Genetics Diagnoses Prostate cancer metastatic to multiple sites Dmitry Bhatti MD [facility] DR HEMATOLOGY [place] [address] [facility] Hem Onc [address] [place] [address] Referral ID Status Reason Start Date Expiration Date V isits Requested Visits Authorized [id number] Closed Consult, Test & Treat 12/21/2023 12/20/2024 1 1 Encounter Details Date Type Department Care Team (Late st Contact Info) Description 12/21/2023 10:00 AM EST Office Visit Hematology/Oncology at [address] [phone] Dmitry Bhatti MD [facility] DR HEMATOLOGY [place] [address] Ellen Mcrae APRN [facility] [place] [address] Prostate cancer metastatic to multiple sites (Primary [...] weight gain and leg swelling. Follows with wardrobe consultant Dr. Bah. He is currently on antibiotics [...] here with his today. They live in [place]. Medications: Your Medications Accurate as of December [...] adenocarcinoma, involving 1 of 1 core. - Waggoner score 4 + 5 = 9 (grade [...] adenocarcinoma, involving 1 of 1 core. - Waggoner score 5 + 4 = 9 (grade group 5), tumor extent 15 mm (95% of core). - Perineural invasion is identified. G. PROSTATE, LEFT BASE LATERAL, NEEDLE CORE BIOPSY: - Atypical small acinar proliferation (LOLITA), highly suspicious for minute focus (0.1 mm) of prostatic adenocarcinoma. H. PROSTATE, LEFT BASE MEDIAL, NEEDLE CORE BIOPSY: - Prostatic adenocarcinoma, involving 1 of 1 core. - Waggoner score 4 + 3 = 7 (grade group 3), 70% Waggoner pattern 4, tumor extent 6 mm (40% of core). - Cribriform Waggoner pattern 4 is present. I. PROSTATE, LEFT MID LATERAL, NEEDLE CORE BIOPSY: - Prostatic adenocarcinoma, involving 1 of 1 core. - Waggoner score 3 + 5 = 8 (grade group 4), tumor extent 4 mm (30% of core). J. PROSTATE, LEFT MID MEDIAL, NEEDLE CORE BIOPSY: - Prostatic adenocarcinoma, involving 1 of 1 core. - Waggoner score 4 + 5 = 9 (grade group 5), tumor extent 2 mm (15% of core). K. PROSTATE, LEFT APEX LATERAL, NEEDLE CORE BIOPSY: - Benign prostatic tissue. L. PROSTATE, LEFT APEX MEDIAL, NEEDLE CORE BIOPSY: - Prostatic adenocarcinoma, involving 1 of 1 core. - Waggoner score 5 + 4 = 9 (grade [...] Food and Drug Administration approved darolutamide (Nubeqa, [employer] tablets in combination with docetaxel for adult patients with metastatic hormone-sensitive prostate cancer (mHSPC). Efficacy was based on ARASENS ([id number]), a randomized, multicenter, double- blind, placebo-controlled clinical trial in 1306 patients with mHSPC. Patients were randomized to receive either darolutamide 600 mg orally twice daily plus docetaxel 75 mg/m2 intravenously administered every 3 weeks forup to 6 cycles or docetaxel plus placebo. All patients received a gonadotropin-releasing hormone analog concurrently or had a bilateral orchiectomy. The primary efficacy measure was overall survival (OS). Kzfi-pc-zhry progression was an additional efficacy measure. Median OS was not reached (NR) (95% CI: NR, NR) in the darolutamide plus docetaxelarm and 48.9 months (95% CI: 44.4, NR) in docetaxel plus placebo arm (HR 0.68; 95% CI: 0.57, 0.80; p<0.0001). Treatment with darolutamide and docetaxel resulted in a statistically significant delay in fqqj-so-nush progression (HR 0.79; 95% CI: 0.66, 0.95; [...] 10:20 AM EST Office [place] [address] Sriram Contreras MD [facility] [place] [address] 10/31/2024 1:30 PM EST Office Visit Hematology/Oncology at [address] [phone] Dmitry Bhatti MD [facility] DR HEMATOLOGY [place] [address] Ellen Mcrae APRN [facility] [place] [address] 10/31/2024 2:00 PM EST Infusion Hematology Oncology at [address] [phone] Scheduled Referrals Name Type Priority Associated Diagnoses [...] monitoring documented in this encounter Care Teams Sausage Stringer Relationship Specialty Start Date End Date Paulino Finley MD [address] [place] [address] PCP - General Emergency Medicine 09/11/21 documented as of this encounter
--- OUTSIDE RECORDS SUMMARY | 2024-09-01 14:06 | XMS_ITS | Encounter Summary ---
[place] [address] Care Team Providers Care Physical Education Aide Name Role Phone Paulino Finley MD Primary Care Provider [phone] Encounter Details Date Type Department Care Team (Latest Contact Info) Description 07/08/2023 1:58 PM EDT - 07/08/2023 11:59 PM EDT Hospital Encounter [place]ology [place] [address] Malignant neoplasm of prostate metastatic to bone [...] 10:20 AM EST Office [place] [address] Sriram Contreras MD [facility] [place] [address] 10/31/2024 1:30 PM EST Office Visit Hematology/Oncology at [address] [phone] Dmitry Bhatti MD [facility] DR HEMATOLOGY [place] [address] Ellen Mcrae APRN [facility] [place] [address] 10/31/2024 2:00 PM EST Infusion Hematology Oncology at [address] [phone] documented as of this encounter Procedures Procedure [...] 2:07 PM EDT) Neutrophil % 48.6 % [facility] Neutrophil Absolute 2.59 1.70 - 6.10 x10(3)/[facility] Lymph % 36.2 % [facility] Lymphocytes Abs 1.9 0.9 - 3.2 x10(3)/[facility] Monocyte % 10.1 % [facility] Monocyte Abs 0.5 0.3 - 0.9 x10(3)/[facility] Eos % 3.0 % [facility] Eosinophils Abs 0.2 0.0 - 0.4 x10(3)/[facility] Basophil % 1.9 % [facility] Baso Absolute 0.1 0.0 - 0.1 x10(3)/[facility] Immature Gran % 0.20 % [facility] Comment: Immature granulocytes(IG's)percentage and absolute count will include metamyelocytes, myelocytes, and promyelocytes. Blood smears from CBCs yielding IG's will be scanned manually for concordance. If this scan disagrees with the automated IG or if promyelocytes are noted, a manual differential will be performed. Immature Gran Absolute 0.01 0.00 - 0.04 x10(3)/[facility] Blood 07/08/2023 2:07 PM EDT 07/08/2023 2:10 PM EDT Narrative Resulting Agency Comment Spec In Lab Dmitry Bhatti MD HEMATOLOGY ORDERABLE S [facility] [place] [address] * (ABNORMAL) Hemogram (07/08/2023 2:07 PM EDT) White Blood Cell 5.3 4.0 - 9.5 x10(3)/mc L [facility] Red Blood Cell 4.85 4.58 - 5.54 x10(6)/mc L [facility] Hemoglobin 14.8 13.7 - 16.5 g/dL [facility] Hematocrit 44.9 40.5 - 48.5 % [facility] Mean Cell Volume 92.6 82.9 - 93.1 fL [facility] Mean Cell Hemoglobin 30.5 27.5 - 32.1 pg [facility] Mean Cell Hemoglobin Concentration 33.0 32.0 - 35.7 g/dL [facility] Platelet 161 145 - 357 x10(3)/mc L [facility] RDW Standard Deviation 47.9(H) 36.0 - 45.0 fL [facility] RDW coefficient of variation 14.0(H) 11.4 - 13.8 % [facility] Mean Platelet Volume 9.8 7.6 - 12.9 fL [facility] NRBC% auto 0.0 % [facility] NRBC Absolute 0.000 0.000 - 0.000 x10(3)/ L [facility] Blood 07/08/2023 2:07 PM EDT 07/08/2023 2:10 PM EDT Narrative Resulting Agency Comment Spec In Lab Dmitry Bhatti MD HEMATOLOGY ORDERABLE S [facility] [address] * (ABNORMAL) PSA (Ultrasensitive) (07/08/2023 2:07 PM EDT) Prostate Specific Antigen (Ultrasensitive) 18.80(H) 0.00 - 4.00 ng/mL [facility] Comment: PLEASE NOTE: The above reference [...] In Lab Dmitry Bhatti MD CHEMISTRY ORDERABLES [facility] [address] [place] [address] * (ABNORMAL) Comprehensive metabolic panel (non-fasting) (07/08/2023 2:07 PM EDT) Glucose 73 65 - 199 mg/dL [facility] Comment:Diabetes: >=200 mg/d L plus symptoms Blood Urea Nitrogen 16 10 - 20 mg/dL [facility] Creatinine 1.12 0.80 - 1.50 mg/dL [facility] Sodium 143 135 - 145 mmol/L [facility] Potassium 4.4 3.5 - 5.0 mmol/L [facility] Comment: Please note: ??Patients with WBC >100,000 may have falsely elevated Potassium levels. ??For accurate Potassium quantification in these patients send serum separator tube (gold top) for subsequent determinations. ??Contact the Clinical Chemistry Laboratory if there are any questions. Chloride 109(H) 98 - 107 mmol/L [facility] Carbon Dioxide 24 22 - 31 mmol/L [facility] Anion Gap 10 5 - 15 mmol/L [facility] Calcium 9.4 8.5 - 10.5 mg/dL [facility] Protein, Total 7.2 6.1 - 8.0 g/dL [facility] Albumin 4.2 3.2 - 5.2 g/dL [facility] Aspartate Aminotransferase 17 0 - 39 unit/L [facility] Alanine Aminotransferase 17 0 - 55 unit/L [facility] Alkaline Phosphatase 407(H) 40 - 130 unit/L [facility] Bilirubin, Total 0.2 0.2 - 1.3 mg/dL [facility] Est Glomerular Filtration Rate 69 >=60 mL/min/1. 73 m?? [facility] Comment: This patient's estimated GFR was [...] In Lab Dmitry Bhatti MD CHEMISTRY ORDERABLES [facility] [place] [address] * (ABNORMAL) Testosterone, total (07/08/2023 2:07 PM EDT) Testosterone <0.12(L) 1.93 - 7.40 ng/mL [facility] Comment: Pediatric Reference Ranges: ? Males [...] Stated reference ranges derived from review of [employer] Arabella Testosterone II 09/2022, v2.0 Blood 07/08/2023 2:07 PM EDT 07/08/2023 2:10 PM EDT Narrative Resulting Agency Comment Spec In Lab Dmitry Bhatti MD CHEMISTRY ORDERABLES Performing Organization Address City/State/[facility] Co de Phone Number [facility] [place] [address] documented in this encounter Visit Diagnoses Diagnosis Malignant neoplasm of prostate metastatic to bone Malignant neoplasm of prostate documented in this encounter Care Teams Physical Education Aide Relationship Specialty Start Date End Date Paulino Finley MD [address] [place] [address] PCP - General Emergency Medicine 09/11/21 documented as of this encounter
--- OUTSIDE RECORDS SUMMARY | 2024-09-01 14:06 | XMS_ITS | Encounter Summary ---
[place] [address] Care Team Providers Care Plumbing Assembler Installer Name Role Phone Paulino Finley MD Primary Care Provider [phone] Reason for Visit * Reason Comments Specialty Pharmacy Review Nubeqa 300mg t ablet Encounter Details Date Type Department Care Team (Late st Contact Info) Description 07/08/2023 Specialty [place] [address] Jeannie Villatoro, [facility] Social History Tobacco Use Types [...] Villatoro - 07/08/2023 11:59 PM EDT The [facility] has completed a benefits investigation for Jose Bee to reviewtheir eligibility to fill at [facility]. Per patient's medication list they are prescribed Nubeqa 300mg tablet and the medication is able to be filled at the [facility], but the medication cost may not be financially viable. The patient is eligible to fill the medication through [facility] with a high copay. No PA required. Due to the high copay, the patient has been referred to [facility] for mosaic worker assistance. documented in this encounter Plan of Treatment Upcoming Encounters Date Type Department Care Team (Late st Contact Info) Description 09/18/2024 10:20 AM EST Office [place] [address] Sriram Contreras MD [facility] [address] 10/31/2024 1:30 PM EST Office Visit Hematology/Oncology at [address] [phone] Dmitry Bhatti MD [facility] DR [place] [address] Ellen Mcrae APRN [facility] [place] [address] 10/31/2024 2:00 PM EST Infusion Hematology Oncology at [address] [phone] documented as of this encounter Visit Diagnoses Not on filedocumented in this encounter Care Teams Plumbing Assembler Installer Relationship Specialty Start Date End Date Paulino Finley MD [address] [place] [address] PCP - General Emergency Medicine 09/11/21 documented as of this encounter
--- OUTSIDE RECORDS SUMMARY | 2024-09-01 14:06 | XMS_ITS | Encounter Summary ---
[place] [address] Care Team Providers Care Felt Machine Mechanic Name Role Phone Jovon Sifuentes MD Primary Care Provider Encounter Details Date Type Department Care Team (Latest Contact Info) Description 12/05/2020 9:30 AM EST Office Visit Audiology at [address] [address] Valerie Toscano, [facility] [place] [address] Sensorineural hearing loss, asymmetrical Social History Tobacco [...] was noted in the receivers and the vulcanizing machine operator wires were distorted. ?? Both instruments were [...] the likelihood of distorting and/or damaging the vulcanizing machine operator wires. ?? Verification of aided response was completed using SREM and d-jossue measures. Results were consistent with previous findings. Adjustments were not made. ?? An audiologic evaluation and hearing aid check-up are advised in one year. He knows to contact the clinic sooner for any interim concerns. Sabina Toscano MS, [facility] Clinical Coordinator, [place] [address] (fax) AMPLIFICATION EQUIPMENT LIST: HEARING AID RIGHT LEFT Make/Model/Style Phonak Audeo M30 R Phonak Audeo M30 R Casing Color White White Serial Number [id number] Battery Size Rechargeable Rechargeable Invoice number/date [id number] 08/24/19 [id number] 08/24/19 Other Comments PROGRAM/SETTINGS Fitting Algorithm DSL [...] HELENA / Dome specifics Size 03 M vulcanizing machine operator small vented dome Size 03 M vulcanizing machine operator small vented dome Impression Date Invoice number/date Other Comments ACCESSORIES Make/Model (color) Serial Number Warranty date Invoice number/date Settings Other Comments documented in this encounter Plan of Treatment Upcoming Encounters Date Type Department Care Team (Late st Contact Info) Description 09/18/2024 10:20 AM EST Office [place] [address] Sriram Contreras MD [facility] [place] [address] 10/31/2024 1:30 PM EST Office Visit Hematology/Oncology at [address] [phone] Dmitry Bhatti MD [facility] DR H[place] [address] Ellen Mcrae APRN [facility] [place] [address] 10/31/2024 2:00 PM EST Infusion Hematology Oncology at [address] [phone] documented as of this encounter Visit Diagnoses Diagnosis Sensorineural hearing loss, asymmetrical documented in this encounter Care Teams Felt Machine Mechanic Relationship Specialty Start Date End Date Jovon Sifuentes MD [address] [place] [address] PCP - General 09/30/10 09/10/21 documented as of this encounter
--- OUTSIDE RECORDS SUMMARY | 2024-09-01 14:06 | XMS_ITS | Encounter Summary ---
[place] [address] Care Team Providers Care Jig Hand Name Role Phone Jovon Sifuentes MD Primary Care Provider [phone] Reason for Visit * Reason Onset Date Comments Appointment 07/04/2019 Encounter Details Date Type Department Care Team (Late st Contact Info) Description 07/04/2019 Telephone Audiology at [address] [phone] Nawaf Kendrick Appointment Social History Tobacco Use [...] Kendrick - 07/04/2019 8:08 AM EDT Jose Anaay Cristal needed to reschedule his HAF & HAC visits to September. documented in this encounter Plan of Treatment Upcoming Encounters Date Type Department Care Team (Late st Contact Info) Description 09/18/2024 10:20 AM EST Office [place] [address] [facility] [place] [address] 10/31/2024 1:30 PM EST Office Visit Hematology/Oncology at [address] [phone] [facility] DR HEMATOLOGY [place] [address] [facility] [place] [address] 10/31/2024 2:00 PM EST Infusion Hematology Oncology at [address] [phone] documented as of this encounter Visit Diagnoses Not on filedocumented in this encounter Care Teams Jig Hand Relationship Specialty Start Date End Date Jovon Sifuentes MD [address] [place] [address] PCP - General 09/30/10 09/10/21 documented as of this encounter
--- OUTSIDE RECORDS SUMMARY | 2024-09-01 14:06 | XMS_ITS | Encounter Summary ---
Author Organization [facility] [place] [address] Care Team Providers Care Center Sales And Service Associate Name Role Phone Paulino Finley MD Primary Care Provider [phone] Encounter Details Date Type Department Care Team (Late st Contact Info) Description 08/04/2023 Notes [place] [address] Casi Dong Social History Tobacco Use Types [...] receive his Nubeqa at no cost through [employer] until 11/07/2023. * Casi Dong - 08/04/2023 3:46 PM EDT 08/05/2023- PROGRAM CALLED BACK- patient is NOT yet approved. The program retail account representative dhara on08/04/2023. They DO NOT have a determination at this time. documented in this encounter Plan of Treatment Upcoming Encounters Date Type Department Care Team (Late st Contact Info) Description 09/18/2024 10:20 AM EST Office [place] [address] Sriram Contreras MD [facility] [place] [address] 10/31/2024 1:30 PM EST Office Visit Hematology/Oncology at [address] [phone] Dmitry Bhatti MD [facility] DR [place] [address] Ellen Mcrae APRN [facility] [place] [address] 10/31/2024 2:00 PM EST Infusion Hematology Oncology at [address] [phone] documented as of this encounter Visit Diagnoses Not on filedocumented in this encounter Care Teams Center Sales And Service Associate Relationship Specialty Start Date End Date Paulino Finley MD [address] [place] [address] PCP - General Emergency Medicine 09/11/21 documented as of this encounter
--- OUTSIDE RECORDS SUMMARY | 2024-09-01 14:06 | XMS_ITS | Encounter Summary ---
Author Organization [facility] [place] [address] Care Team Providers Care Chief Customer Officer Name Role Phone Paulino Finley MD Primary Care Provider [phone] Reason for Visit * Reason Onset Date Comments Other 08/11/2023 Encounter Details Date Type Department Care Team (Late st Contact Info) Description 08/11/2023 Telephone Hematology/Oncology at [address] [phone] Shad Hernandez RN Other Social [...] 10:20 AM EST Office [place] [address] Sriram Contreras MD [facility] [place] [address] 10/31/2024 1:30 PM EST Office Visit Hematology/Oncology at [address] [phone] Dmitry Bhatti MD [facility] DR HEMATOLOGY [place] [address] Ellen Mcrae APRN [facility] [place] [address] 10/31/2024 2:00 PM EST Infusion Hematology Oncology at [address] [phone] documented as of this encounter Visit Diagnoses Not on filedocumented in this encounter Care Teams Chief Customer Officer Relationship Specialty Start Date End Date Paulino Finley MD [address] [place] [address] PCP - General Emergency Medicine 09/11/21 documented as of this encounter
--- OUTSIDE RECORDS SUMMARY | 2024-09-01 14:06 | XMS_ITS | Encounter Summary ---
[place] [address] Care Team Providers Care Business Intelligence Manager Name Role Phone Paulino Finley MD Primary Care Provider [phone] Encounter Details Date Type Department Care Team (Latest Contact Info) Description 05/21/2022 8:00 AM EDT Office Visit Audiology at [address] [phone] Valerie Toscano AUD [facility] [place] [address] Asymmetrical sensorineural hearing loss; Fitting and adjustment [...] from the contacts of the aids' battery stacker. The debris in the automotive wholesale parts advisor was likely preventing proper contact with the [...] for any interim concerns. Sabina Toscano MS, [facility] Clinical Coordinator, Adult Audiology Program [place] [phone] (fax) AMPLIFICATION EQUIPMENT LIST: HEARING AID RIGHT LEFT Make/Model/Style Phonak Audeo M30 R Phonak Audeo M30 R Casing Color White White Serial Number [id number] Battery Size Rechargeable Rechargeable Invoice number/date [id number] 08/24/19 [id number] 08/24/19 Other Comments PROGRAM/SETTINGS Fitting Algorithm DSL [...] HELENA / Dome specifics Size 03 M chiropractor assistant small vented dome Size 03 M chiropractor assistant small vented dome Impression Date Invoice number/date Other Comments ACCESSORIES Make/Model (color) Serial Number Warranty date Invoice number/date Settings Other Comments documented in this encounter Plan of Treatment Upcoming Encounters Date Type Department Care Team (Late st Contact Info) Description 09/18/2024 10:20 AM EST Office [place] [address] Sriram Contreras MD [facility] [place] [address] 10/31/2024 1:30 PM EST Office Visit Hematology/Oncology at [address] [phone] Dmitry Bhatti MD [facility] DR HEMATOLOGY [place] [address] Ellen Mcrae APRN [facility] [place] [address] 10/31/2024 2:00 PM EST Infusion Hematology Oncology at [address] [phone] documented as of this encounter Visit Diagnoses Diagnosis Asymmetrical sensorineural hearing loss Sensorineural hearing loss, asymmetrical Fitting and adjustment of hearing aid documented in this encounter Care Teams Business Intelligence Manager Relationship Specialty Start Date End Date Paulino Finley MD [address] [place] [address] PCP - General Emergency Medicine 09/11/21 documented as of this encounter
--- OUTSIDE RECORDS SUMMARY | 2024-09-01 14:06 | XMS_ITS | Encounter Summary ---
Author Organization [facility] [place] [address] Care Team Providers Care Hearing Aid Technician Name Role Phone Paulino Finley MD Primary Care Provider [phone] Reason for Visit * Reason Comments Follow-up Has to Clear throat a lot Encounter Details Date Type Department Care Team (Late st Contact Info) Description 05/21/2022 11:40 AM EDT Office [place] [address] Sriram Contreras MD [facility] [place] [address] Cancer of base of tongue Social History [...] MD - 05/21/2022 11:40 AM EDT . [facility] [place] OTOLARYNGOLOGY HEAD AND NECK TUMOR CLINIC FOLLOW [...] CPAP G47.33, Z99.89 ??? Adult BMI 30+ [id number] PAST MEDICAL HISTORY Past Medical History: Diagnosis [...] the [employer] and uploaded to the [employer]. Findings Nasal cavity Right nasal cavity examination [...] 10:20 AM EST Office [place] [address] Sriram Contreras MD [facility] [place] [address] 10/31/2024 1:30 PM EST Office Visit Hematology/Oncology at [address] [phone] Dmitry Bhatti MD [facility] DR [place] [address] Ellen Mcrae APRN [facility] [place] [address] 10/31/2024 2:00 PM EST Infusion Hematology Oncology at [address] [phone] documented as of this encounter Visit Diagnoses Diagnosis 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
--- OUTSIDE RECORDS SUMMARY | 2024-09-01 14:06 | XMS_ITS | Encounter Summary ---
Author Organization [facility] [place] [address] Care Team Providers Care Private Chef Name Role Phone Paulino Finley MD Primary Care Provider [phone] Encounter Details Date Type Department Care Team (Late st Contact Info) Description 08/02/2023 Telephone [place] [address] Calista Ridley Social History Tobacco [...] 10:20 AM EST Office [place] [address] Sriram Contreras MD [facility] [place]ARY[place] [address] 10/31/2024 1:30 PM EST Office Visit Hematology/Oncology at [address] [phone] Dmitry Bhatti MD [facility] DR HEMATOLOGY [place] [address] Ellen Mcrae APRN [facility] DR MEDICAL [place] [address] 10/31/2024 2:00 PM EST Infusion Hematology Oncology at [address] [phone] documented as of this encounter Visit Diagnoses Not on filedocumented in this encounter Care Teams Private Chef Relationship Specialty Start Date End Date Paulino Finley MD [address] [place] [address] PCP - General Emergency Medicine 09/11/21 documented as of this encounter
--- OUTSIDE RECORDS SUMMARY | 2024-09-01 14:06 | XMS_ITS | Encounter Summary ---
Author Organization [facility] [place] [address] Care Team Providers Care Account Assistant Name Role Phone Jovon Sifuentes MD Primary Care Provider Encounter Details Date Type Department Care Team (Late Contact Info) Description 08/18/2019 Orders [place] [address] Angy Noriega Social History Tobacco Use Types [...] 10:20 AM EST Office [place] [address] Sriram Contreras MD [facility] [place] [address] 10/31/2024 1:30 PM EST Office Visit Hematology/Oncology at [address] [phone] Dmitry Bhatti MD [facility] DR HEMATOLOGY [place] [address] Ellen Mcrae APRN [facility] [place] [address] 10/31/2024 2:00 PM EST Infusion Hematology Oncology at [address] [phone] documented as of this encounter Visit Diagnoses Not on filedocumented in this encounter Care Teams Account Assistant Relationship Specialty Start Date End Date Jovon Sifuentes MD [address] [place] [address] PCP - General 09/30/10 09/10/21 documented as of this encounter
--- OUTSIDE RECORDS SUMMARY | 2024-09-01 14:06 | XMS_ITS | Encounter Summary ---
Author Organization [facility] [place] [address] Care Team Providers Care Sleeve Fixer Name Role Phone Paulino Finley MD Primary Care Provider [phone] Encounter Details Date Type Department Care Team [...] 10:20 AM EST Office [place] [address] Sriram Contreras MD [facility] [place] [address] 10/31/2024 1:30 PM EST Office Visit Hematology/Oncology at [address] [phone] Dmitry Bhatti MD [facility] DR HEMATOLOGY [place] [address] Ellen Mcrae APRN [facility] [place] [address] 10/31/2024 2:00 PM EST Infusion Hematology Oncology at [address] [phone] documented as of this encounter Visit Diagnoses Not on filedocumented in this encounter Care Teams Sleeve Fixer Relationship Specialty Start Date End Date Paulino Finley MD [address] [place] [address] PCP - General Emergency Medicine 09/11/21 documented as of this encounter
--- OUTSIDE RECORDS SUMMARY | 2024-09-01 14:06 | XMS_ITS | Encounter Summary ---
[place] [address] Care Team Providers Care Instrument Technician Name Role Phone Jovon Sifuentes MD Primary Care Provider [phone] Encounter Details Date Type Department Care Team (Late st Contact Info) Description 10/29/2020 Telephone Audiology at [address] [address] Ramonita Tee Social History Tobacco Use Types [...] for the upcoming hearing evaluation appointment at [facility] Audiology. Patient is aware a packet will bemailed out discussing coverage of the appointment. We have verified the [address] on file as[address] [facility] [address] Leah Mcmahon mailed out ABN for me. documented in this encounter Plan of Treatment Upcoming Encounters Date Type Department Care Team (Late st Contact Info) Description 09/18/2024 10:20 AM EST Office [place] [address] Sriram Contreras MD [facility] [place] [address] 10/31/2024 1:30 PM EST Office Visit Hematology/Oncology at [address] [phone] Dmitry Bhatti MD [facility] DR HEMATOLOGY [place] [address] Ellen Mcrae APRN [facility] [place] [address] 10/31/2024 2:00 PM EST Infusion Hematology Oncology at [address] [phone] documented as of this encounter Visit Diagnoses Not on filedocumented in this encounter Care Teams Instrument Technician Relationship Specialty Start Date End Date Jovon Sifuentes MD [address] [place] [address] PCP - General 09/30/10 09/10/21 documented as of this encounter
--- OUTSIDE RECORDS SUMMARY | 2024-09-01 14:06 | XMS_ITS | Encounter Summary ---
[place] [address] Care Team Providers Care Finish Repair Worker Name Role Phone Jovon Sifuentes MD Primary Care Provider Reason for Referral * Diagnostic Test (Routine) - Closed Specialty Diagnoses / Procedures Referred By Contac t Referred To Contact Radiology Diagnoses Cancer of base of tongue Procedures CT Neck Soft Tissue w Contrast (Generic) Sriram Contreras MD [facility] [place] [address] [facility] [place] [address] Referral ID Status Reason Start Date Expiration Date V isits Requested Visits Authorized [id number] Closed Specialty Service Requested 06/29/2019 06/28/2020 1 1 * Diagnostic Test (Routine) - Closed Specialty Diagnoses / Procedures Referred By Contac t Referred To Contact Radiology Diagnoses Cancer of base of tongue Procedures CT Chest w Contrast Sriram Contreras MD [facility] [place] [address] [facility] [place] [address] Referral ID Status Reason Start Date Expiration Date V isits Requested Visits Authorized [id number] Closed Specialty Service Requested 06/29/2019 06/28/2020 1 1 Reason for Visit * Diagnostic Test (Routine) - Closed Specialty Diagnoses / Procedures Referred By Huma valladares Referred To Contact Radiology Diagnoses Cancer of base of tongue Procedures CT Chest w Contrast Sriram Contreras MD [facility] DR WH[place] [address] [facility] [place] [address] Referral ID Status Reason Start Date Expiration Date V isits Requested Visits Authorized [id number] Closed Specialty Service Requested 06/29/2019 06/28/2020 1 1 Encounter Details Date Type Department Care Team (Latest Contact Info) Description 11/09/2019 8:56 AM EST - 11/09/2019 11:59 PM EST [place] [address] Sriram Contreras MD [facility] DR WHALE[place]ARY[place] [address] Cancer of base of tongue Discharge Disposition: [...] 10:20 AM EST Office [place] [address] Sriram Contreras MD [facility] [place] [address] 10/31/2024 1:30 PM EST Office Visit Hematology/Oncology at [address] [phone] Dmitry Bhatti MD [facility] DR HEMATOLOGY [place] [address] Ellen Mcrae APRN [facility] [place] [address] 10/31/2024 2:00 PM EST Infusion Hematology Oncology at [address] [phone] documented as of this encounter [...] the number below. ? Electronically signed by: BARNEY Phillips [facility] ([phone]), at 11/09/2019 9:58 AM Narrative 11/09/2019 9:58 [...] contact the number below. Electronically signed by: BARNEY Phillips [facility]([phone]), at 11/09/2019 9:58 AM Sriram Contreras MD IMG CT ORDERABLES * [...] mLs documented in this encounter Care Teams Finish Repair Worker Relationship Specialty Start Date End Date Jovon Sifuentes MD [address] [place] [address] PCP - General 09/30/10 09/10/21 documented as of this encounter
--- OUTSIDE RECORDS SUMMARY | 2024-09-01 14:06 | XMS_ITS | Encounter Summary ---
Author Organization [facility] [place] [address] Care Team Providers Care Insurance Verifier Name Role Phone Jovon Sifuentes MD Primary Care Provider Encounter Details Date Type Department Care Team (Late Contact Info) Description 09/11/2019 Telephone [place] [phone] Nawaf Kendrick Social History Tobacco Use Types [...] AM EST Office Visit [place] [address] Sriram Contreras MD [facility] [place] [address] 10/31/2024 1:30 PM EST Office Visit Hematology/Oncology at [address] [phone] Dmitry Bhatti MD [facility] DR [place] [address] Ellen Mcrae APRN [facility] [place] [address] 10/31/2024 2:00 PM EST Infusion Hematology Oncology at [address] [phone] documented as of this encounter Visit Diagnoses Not on filedocumented in this encounter Care Teams Insurance Verifier Relationship Specialty Start Date End Date Jovon Sifuentes MD [address] [place] [address] PCP - General 09/30/10 09/10/21 documented as of this encounter
--- OUTSIDE RECORDS SUMMARY | 2024-09-01 14:06 | XMS_ITS | Encounter Summary ---
[place] [address] Care Team Providers Care Rail Setter Name Role Phone Paulino Finley MD Primary Care Provider [phone] Reason for Visit * Reason Comments Prior Authorization Nubeqa Encounter Details Date Type Department Care Team (Late st Contact Info) Description 07/08/2023 Specialty [place] [address] Efrem Dos Santos, [facility] Social History Tobacco [...] Jose Bee Patient : 1950 Patient Address: [address] [place] [phone] (home) Medication Name: NUBEQA 300 MG TABLET Medication ID: Patient Location: [facility] Patient Location Comment: Medication Strength Frequency Requested: Take 2 tablets by mouth twice a day Qty/Day Supply: 120/30 New Start: New to Therapy Diagnosis & ICD-10 Code: Prostate Cancer C61 Subscriber Insurance: [employer] Subscriber Insurance Comment: Phone: Fax: Physician: DMITRY STEVEN Physician Comment : PA Status: PA Not Needed Insurance mandated Pharmacy: Fillable at [facility]: Yes Insurance requirements/notes: None Copay: $597.40 Copay assistance: Other (Enter Comment) Copay assistance comment: PT has a high copay, would you like me to refer the PT to [facility] for financial assistance? Pharmacy staff will be reaching out to the patient to inform them of their medication's [facility]. If applicable, a pharmacist will speak with the patient to offer our specialty pharmacy services and to arrange delivery of their medication. Efrem Dos Santos 07/08/23 3:54 PM documented in this encounter Plan of Treatment Upcoming Encounters Date Type Department Care Team (Late st Contact Info) Description 09/18/2024 10:20 AM EST Office Visit [place] [address] Sriram Contreras MD [facility] [place] [address] 10/31/2024 1:30 PM EST Office Visit Hematology/Oncology at [address] [phone] Dmitry Steven MD [facility] DR [place] [address] Ellen Mcrae APRN [facility] [place] [address] 10/31/2024 2:00 PM EST Infusion Hematology Oncology at [address] [phone] documented as of this encounter Visit Diagnoses Not on filedocumented in this encounter Care Teams Rail Setter Relationship Specialty Start Date End Date Paulino Finley MD [address] [place] [address] PCP - General Emergency Medicine 09/11/21 documented as of this encounter
--- OUTSIDE RECORDS SUMMARY | 2024-09-01 14:06 | XMS_ITS | Encounter Summary ---
Author Organization [facility] [place] [address] Care Team Providers Care Rn Transfer Name Role Phone Paulino Finley MD Primary Care Provider [phone] Encounter Details Date Type Department Care Team (Late st Contact Info) Description 07/13/2023 Notes [place] [address] Casi Dong Social History Tobacco Use Types [...] 10:20 AM EST Office [place] [address] Sriram Contreras MD [facility] [place] [address] 10/31/2024 1:30 PM EST Office Visit Hematology/Oncology at [address] [phone] Dmitry Bhatti MD [facility] DR [place] [address] Ellen Mcrae APRN [facility] [place] [address] 10/31/2024 2:00 PM EST Infusion Hematology Oncology at [address] [phone] documented as of this encounter Visit Diagnoses Not on filedocumented in this encounter Care Teams Rn Transfer Relationship Specialty Start Date End Date Paulino Finley MD [address] [place] [address] PCP - General Emergency Medicine 09/11/21 documented as of this encounter
--- OUTSIDE RECORDS SUMMARY | 2024-09-01 14:06 | XMS_ITS | Encounter Summary ---
[place] [address] Care Team Providers Care Web Software Engineer Name Role Phone Jovon Sifuentes MD Primary Care Provider [phone] Encounter Details Date Type Department Care Team (Late st Contact Info) Description 12/05/2020 8:45 AM EST Office Visit Audiology at [address] [address] Marianela Vyas, [facility] [place] [address] Procedure not carried out because of patient's [...] that the evaluation be completed. Sudarshan Orozco [place] [employer] [place] [address] documented in this encounter Plan of Treatment Upcoming Encounters Date Type Department Care Team (Late st Contact Info) Description 09/18/2024 10:20 AM EST Office Visit [place] [address] Sriram Contreras MD [facility] [place] [address] 10/31/2024 1:30 PM EST Office Visit Hematology/Oncology at [address] [phone] Dmitry Bhatti MD [facility] DR HEMATOLOGY [place] [address] Ellen Mcrae APRN [facility] [place] [address] 10/31/2024 2:00 PM EST Infusion Hematology Oncology at [address] [phone] documented as of this encounter Visit Diagnoses Diagnosis Procedure not carried out because of patient's decision documented in this encounter Care Teams Web Software Engineer Relationship Specialty Start Date End Date Jovon Sifuentes MD [address] [place], [place] [address] PCP - General 09/30/10 09/10/21 documented as of this encounter
--- OUTSIDE RECORDS SUMMARY | 2024-09-01 14:06 | XMS_ITS | Encounter Summary ---
Author Organization [facility] [place] [address] Care Team Providers Care Trading Manager Name Role Phone Paulino Finley MD Primary Care Provider [phone] Encounter Details Date Type Department Care Team (Late st Contact Info) Description 07/29/2023 Notes [place] [phone] Casi Dong Social History Tobacco Use Types [...] the application for assistance with Nubeqa to [employer]. I will follow through once the culinary arts instructor program makes a decision. documented in this encounter Plan of Treatment Upcoming Encounters Date Type Department Care Team (Late st Contact Info) Description 09/18/2024 10:20 AM EST Office Visit [place] [address] Sriram Contreras MD [facility] [place] [address] 10/31/2024 1:30 PM EST Office Visit Hematology/Oncology at [address] [phone] Dmitry Bhatti MD [facility] DR [place] [address] Ellen Mcrae APRN [facility] [place] [address] 10/31/2024 2:00 PM EST Infusion Hematology Oncology at [address] [phone] documented as of this encounter Visit Diagnoses Not on filedocumented in this encounter Care Teams Trading Manager Relationship Specialty Start Date End Date Paulino Finley MD [address] [place] [address] PCP - General Emergency Medicine 09/11/21 documented as of this encounter
--- OUTSIDE RECORDS SUMMARY | 2024-09-01 14:06 | XMS_ITS | Encounter Summary ---
Author Organization [facility] [place] [address] Care Team Providers Care Facing Grinder Name Role Phone Jovon Sifuentes MD Primary Care Provider Encounter Details Date Type Department Care Team (Late st Contact Info) Description 06/06/2020 10:00 AM EDT Office [place] [address] Sriram Contreras MD [facility] [place] [address] Cancer of base of tongue Social History [...] MD - 06/06/2020 10:00 AM EDT . [facility] FOLLOW [...] CPAP G47.33, Z99.89 ??? Adult BMI 30+ [id number] PAST MEDICAL HISTORY Past Medical History: Diagnosis [...] the TelePack Unit and uploaded to the [employer] School Business Manager. Findings Nasal cavity Right nasal cavity [...] 10:20 AM EST Office [place] [address] Sriram Contreras MD [facility] [place] [address] 10/31/2024 1:30 PM EST Office Visit Hematology/Oncology at [address] [phone] Dmitry Bhatti MD [facility] DR [place] [address] Ellen Mcrae APRN [facility] [place] [address] 10/31/2024 2:00 PM EST Infusion Hematology Oncology at [address] [phone] documented as of this encounter Visit Diagnoses Diagnosis 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 documented in this encounter Care Teams Facing Grinder Relationship Specialty Start Date End Date Jovon Sifuentes MD [address] [place] [address] PCP - General 09/30/10 09/10/21 documented as of this encounter
--- OUTSIDE RECORDS SUMMARY | 2024-09-01 14:06 | XMS_ITS | Encounter Summary ---
Author Organization [facility] [place] [address] Care Team Providers Care Machinist Bench Name Role Phone Paulino Finley MD Primary Care Provider [phone] Encounter Details Date Type Department Care Team (Late st Contact Info) Description 08/10/2023 Notes Only Hematology/Oncology at [address] [phone] Lexy Ybarra, FIRE PROTECTION FABRICATOR OFFICE OF CARE MANAGEMENT Social History Tobacco [...] today to introduce myself and role of high school social science teacher to assess/address barriers to getting to and [...] Department of Correction as a probation and [place] Office. He has Medicare and BCBS for insurance. He did not identify any concerns re finances orinsurance. Advance Directives: Jose has not completed his advance directive. He does have the information for this. He is meeting with an regulatory attorney to get his affairs in order [...] assessment Supportive Counseling Plan: Informed pt of FIRE PROTECTION FABRICATOR availability and contact information. Will follow to assess/address psychosocial needs. JONY Blount, RESERVATIONS AGENT, OSW-C Mold Yard Worker [facility] documented in this encounter Plan of Treatment Upcoming Encounters Date Type Department Care Team (Late st Contact Info) Description 09/18/2024 10:20 AM EST Office Visit [place] [address] Sriram Contreras MD [facility] [place] [address] 10/31/2024 1:30 PM EST Office Visit Hematology/Oncology at [address] [phone] Dmitry Bhatti MD [facility] DR HEMATOLOGY [place] [address] Ellen Mcrae APRN [facility] [place] [address] 10/31/2024 2:00 PM EST Infusion Hematology Oncology at [address] [phone] documented as of this encounter Visit Diagnoses Not on filedocumented in this encounter Care Teams Machinist Bench Relationship Specialty Start Date End Date Paulino Finley MD [address] [place] [address] PCP - General Emergency Medicine 09/11/21 documented as of this encounter
--- OUTSIDE RECORDS SUMMARY | 2024-09-01 14:06 | XMS_ITS | Encounter Summary ---
[place] [address] Care Team Providers Care Post Tronic Machine Operator Name Role Phone Jovon Sifuentes MD Primary Care Provider Encounter Details Date Type Department Care Team (Latest Contact Info) Description 04/15/2020 1:45 PM EDT Clinical Support Audiology at [address] [address] Estela Edmond AUD [facility] [place] [address] Sensorineural hearing loss, asymmetrical Social History Tobacco [...] company/invoice number) Replaced electronics, house and external milk receiver ([employer]; [id number]; 04.10.20) CHARGE TO PATIENT? No S-REM VERIFICATION PERFORMED? Yes RE-PROGRAMMED? (ELINOR session date) N/A PROGRAMS AND V/C STATUS CHANGED? N/A PHYSICAL AND ACOUSTIC INSPECTION PERFORMED? N/A DELIVERY (patient pick-up, patient seen, aid mailed or handed off) Mailed to pt w/ pt's case [facility] LOANER OUT? OTHER AMPLIFICATION EQUIPMENT LIST: HEARING AID RIGHT LEFT Make/Model/Style Phonak Audeo M30 R Phonak Audeo M30 R Casing Color White White Serial Number [id number] Battery Size Rechargeable Rechargeable Invoice number/date [id number] 08/24/19 [id number] 08/24/19 Other Comments PROGRAM/SETTINGS Fitting Algorithm DSL [...] HELENA / Dome specifics Size 03 M milk receiver small vented dome Size 03 M milk receiver small vented dome Impression Date Invoice number/date Other Comments ACCESSORIES Make/Model (color) Serial Number Warranty date Invoice number/date Settings Other Comments documented in this encounter Plan of Treatment Upcoming Encounters Date Type Department Care Team (Late st Contact Info) Description 09/18/2024 10:20 AM EST Office [place] [address] Sriram Contreras MD [facility] [place] [address] 10/31/2024 1:30 PM EST Office Visit Hematology/Oncology at [address] [phone] Dmitry Bhatti MD [facility] DR HEMATOLOGY [place] [address] Ellen Mcrae APRN [facility] [place] [address] 10/31/2024 2:00 PM EST Infusion Hematology Oncology at [address] [phone] documented as of this encounter Visit Diagnoses Diagnosis Sensorineural hearing loss, asymmetrical documented in this encounter Care Teams Post Tronic Machine Operator Relationship Specialty Start Date End Date Jovon Sifuentes MD [address] [place] [address] PCP - General 09/30/10 09/10/21 documented as of this encounter
--- OUTSIDE RECORDS SUMMARY | 2024-09-01 14:06 | XMS_ITS | Encounter Summary ---
Author Organization [facility] [place] [address] Care Team Providers Care Actuarial Science Teacher Name Role Phone Jovon Sifuentes MD Primary Care Provider [phone] Encounter Details Date Type Department Care Team (Late st Contact Info) Description 12/05/2020 11:30 AM EST Office [place] [address] Sriram Contreras MD [facility] [place] [address] Cancer of base of tongue Social History [...] MD - 12/05/2020 11:30 AM EST . [facility] HEAD AND NECK [...] CPAP G47.33, Z99.89 ??? Adult BMI 30+ [id number] PAST MEDICAL HISTORY Past Medical History: Diagnosis [...] the TelePack Unit and uploaded to the [employer] Culled Fruit Packer. Findings Nasal cavity Right nasal cavity examination [...] 10:20 AM EST Office [place] [address] Sriram Contreras MD [facility] [place] [address] 10/31/2024 1:30 PM EST Office Visit Hematology/Oncology at [address] [phone] Dmitry Bhatti MD [facility] DR HEMATOLOGY [place] [address] Ellen Mcrae APRN [facility] DR [place] [address] 10/31/2024 2:00 PM EST Infusion Hematology Oncology at [address] [phone] documented as of this encounter Visit Diagnoses Diagnosis 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 documented in this encounter Care Teams Actuarial Science Teacher Relationship Specialty Start Date End Date Jovon Sifuentes MD [address] [place] [address] PCP - General 09/30/10 09/10/21 documented as of this encounter
--- OUTSIDE RECORDS SUMMARY | 2024-09-01 14:06 | XMS_ITS | Encounter Summary ---
[place] [address] Care Team Providers Care Registered Nurse Behavioral Health Name Role Phone Jovon Sifuentes MD Primary Care Provider Reason for Visit * Audiology Exam (Routine) - Denied Specialty Diagnoses / Procedures Referred By Huma t Referred To Contact Audiology Diagnoses needs HAF and in trial check with next available provider (AP out on leave) Procedures HEARING AID FITTING Jovon Sifuentes MD [address] [place] [address] Valerie Toscano [facility] [place] [address] Referral ID Status Reason Start Date Expiration Date Visits Re quested Visits Authorized [id number] Denied 09/11/2019 09/10/2020 1 0 Encounter Details Date Type Department Care Team (Latest Contact Info) Description 09/11/2019 8:45 AM EST Office Visit Audiology at [address] [phone] Valerie Toscano [facility] [place] [address] Sensorineural hearing loss, asymmetrical; Fitting and adjustment [...] of hearing aid fit was completed via [id number] (REM) using the Desired Sensation Level 5 [...] the 30-day trial. Sabina Aundrealaverne Toscano, MS, [facility] Clinical Coordinator, Adult Audiology Program [place] [phone]) AMPLIFICATION EQUIPMENT LIST: HEARING AID RIGHT LEFT Make/Model/Style Phonak Audeo M30 R Phonak Audeo M30 R Casing Color White White Serial Number [id number] Battery Size Rechargeable Rechargeable Invoice number/date [id number] 08/24/19 [id number] 08/24/19 Other Comments PROGRAM/SETTINGS Fitting Algorithm DSL [...] HELENA / Dome specifics Size 03 M office systems technology instructor small vented dome Size 03 M office systems technology instructor small vented dome Impression Date Invoice number/date Other Comments ACCESSORIES Make/Model (color) Serial Number Warranty date Invoice number/date Settings Other Comments documented in this encounter Plan of Treatment Upcoming Encounters Date Type Department Care Team (Late st Contact Info) Description 09/18/2024 10:20 AM EST Office [place] [address] Sriram Contreras MD [facility] [place] [address] 10/31/2024 1:30 PM EST Office Visit Hematology/Oncology at [address] [phone] Dmitry Bhatti MD [facility] DR HEMATOLOGY [place] [address] Ellen Mcrae APRN [facility] [place] [address] 10/31/2024 2:00 PM EST Infusion Hematology Oncology at [address] [phone] documented as of this encounter Visit Diagnoses Diagnosis Sensorineural hearing loss, asymmetrical Fitting and adjustment of hearing aid documented in this encounter Care Teams Registered Nurse Behavioral Health Relationship Specialty Start Date End Date Jovon Sifuentes MD [address] [place] [address] PCP - General 09/30/10 09/10/21 documented as of this encounter
--- OUTSIDE RECORDS SUMMARY | 2024-09-01 14:06 | XMS_ITS | Encounter Summary ---
[place] [address] Care Team Providers Care Assessment Analyst Name Role Phone Jovon Sifuentes MD Primary Care Provider Encounter Details Date Type Department Care Team (Latest Contact Info) Description 06/12/2021 8:00 AM EDT Office Visit Audiology at [address] [address] Valerie Toscano AUD [facility] [place] [address] Sensorineural hearing loss, asymmetrical Social History Tobacco [...] good working order. Karla Byrnes, Audiology Doctoral Combatant Swimmer assisted during today's visit under my full [...] for any interim concerns. Sabina Toscano MS, [facility] Clinical Coordinator, Adult Audiology Program [place] [phone] (fax) AMPLIFICATION EQUIPMENT LIST: HEARING AID RIGHT LEFT Make/Model/Style Phonak Audeo M30 R Phonak Audeo M30 R Casing Color White White Serial Number [id number] Battery Size Rechargeable Rechargeable Invoice number/date [id number] 08/24/19 [id number] 08/24/19 Other Comments PROGRAM/SETTINGS Fitting Algorithm DSL [...] HELENA / Dome specifics Size 03 M neighborhood aide small vented dome Size 03 M neighborhood aide small vented dome Impression Date Invoice number/date Other Comments ACCESSORIES Make/Model (color) Serial Number Warranty date Invoice number/date Settings Other Comments documented in this encounter Plan of Treatment Upcoming Encounters Date Type Department Care Team (Late st Contact Info) Description 09/18/2024 10:20 AM EST Office Visit [place] [address] Sriram Contreras MD [facility] [place] [address] 10/31/2024 1:30 PM EST Office Visit Hematology/Oncology at [address] [phone] Dmitry Bhatti MD [facility] DR [place] [address] Ellen Mcrae APRN [facility] [place] [address] 10/31/2024 2:00 PM EST Infusion Hematology Oncology at [address] [phone] documented as of this encounter Visit Diagnoses Diagnosis Sensorineural hearing loss, asymmetrical documented in this encounter Care Teams Assessment Analyst Relationship Specialty Start Date End Date Jovon Sifuentes MD [address] [place] [address] PCP - General 09/30/10 09/10/21 documented as of this encounter
--- OUTSIDE RECORDS SUMMARY | 2024-09-01 14:06 | XMS_ITS | Encounter Summary ---
[place] [address] Care Team Providers Care Pin Chaser Name Role Phone Paulino Finley MD Primary Care Provider [phone] Encounter Details Date Type Department Care Team (Late st Contact Info) Description 08/11/2023 Telephone [place] [phone] Jennifer Francois, RN Social History Tobacco Use [...] Note 08/11/2023 Jose Bee, 1950 Jose Bee ([id number]) was prescribed Nebeqa by Dr. Bhatti Patient [...] receive his Nubeqa at no cost through [email or web address] until 08/06/2024. Message from Daniella Coombs RN sent at 07/28/2023 9:34 AM EDT ----- Regarding: FW: Nubeqa chemo call MAP waiting on MD portion- email to Paulino asking them to sign LOLITA ----- Message ----- From: Daniella Coombs RN Sent: 07/28/2023 12:00 AM EDT To: [facility] Hem Onc Triage Prostate Subject: FW: Nubeqa chemo call Application mailed back to on Wednesday per pt /MAP hadn't' received ----- Message ----- From: Daniella Coombs RN Sent: 07/21/2023 12:00 AM EDT To: [facility] Hem Onc Triage Prostate Subject: FW: Nubeqa chemo call Application sent to patient 07/13 by [facility] ----- Message ----- From: Daniella Coombs RN Sent: 07/15/2023 12:00 AM EDT To: [facility] Hem Onc Triage Prostate Subject: Nubeqa chemo call To [facility] for high co-pay documented in this encounter Plan of Treatment Upcoming Encounters Date Type Department Care Team (Late st Contact Info) Description 09/18/2024 10:20 AM EST Office [place] [address] Sriram Contreras MD [facility] [place] [address] 10/31/2024 1:30 PM EST Office Visit Hematology/Oncology at [address] [phone] Dmitry Bhatti MD [facility] [place] [address] Ellen Mcrae APRN [facility] [place] [address] 10/31/2024 2:00 PM EST Infusion Hematology Oncology at [address] [phone] documented as of this encounter Visit Diagnoses Not on filedocumented in this encounter Care Teams Pin Chaser Relationship Specialty Start Date End Date Paulino Finley MD [address] [place] [address] PCP - General Emergency Medicine 09/11/21 documented as of this encounter
--- OUTSIDE RECORDS SUMMARY | 2024-09-01 14:06 | XMS_ITS | Encounter Summary ---
Author Organization [facility] [place] [address] Care Team Providers Care Bookseamer Blindstitch Name Role Phone Paulino Finley MD Primary Care Provider Reason for Visit * Consultation (Routine) - Closed Specialty Diagnoses / Procedures Referred By Contac t Referred To Contact Audiology Diagnoses Unspecified hearing loss, unspecified ear Paulino Finley MD [address] [place] [address] [facility] [address] [place] [phone] Referral ID Status Reason Start Date Expiration Date V isits Requested Visits Authorized [id number] Closed Consult, Test & Treat Connection Center PCP Updated and/or Approved 09/01/2021 09/01/2022 12 12 Encounter Details Date Type Department Care Team (Latest Contact Info) Description 01/23/2022 9:00 AM EDT Office Visit Audiology at [address] [phone] Yulissa Munoz, DAVID [facility] [place] [address] Asymmetrical sensorineural hearing loss Social [...] Munoz, AUD - 01/23/2022 9:00 AM EDT [facility] AUDIOLOGY SECTION AUDIOLOGIC EVALUATION Name: Jose Bee [...] sensitivity was stable for both ears compared [id number]. ?? Word recognition was good (84%) for [...] pure tone audiogram. SNR loss is the heycspfglplurwt-lf-rmbdg ratio required by an individual to understand [...] not hesitate to contact this Section at [phone] if there are questions regarding this report or its recommendations. David Montoya Board [place] [address] Attachment: audiogram CC: Paulino Finley MD documented in this encounter Plan of Treatment Upcoming Encounters Date Type Department Care Team (Late st Contact Info) Description 09/18/2024 10:20 AM EST Office [place] [phone] Sriram Contreras MD [facility] [place] [address] 10/31/2024 1:30 PM EST Office Visit Hematology/Oncology at [address] [phone] Dmitry Bhatti MD [facility] DR HEMATOLOGY [place] [address] Ellen Mcrae APRN [facility] [place] [address] 10/31/2024 2:00 PM EST Infusion Hematology Oncology at [address] [phone] documented as of this encounter Procedures Procedure [...] asymmetrical documented in this encounter Care Teams Bookseamer Blindstitch Relationship Specialty Start Date End Date Paulino Finley MD [address] [place] [address] PCP - General Emergency Medicine 09/11/21 documented as of this encounter
--- OUTSIDE RECORDS SUMMARY | 2024-09-01 14:06 | XMS_ITS | Encounter Summary ---
[place] [address] Care Team Providers Care Records Specialist Name Role Phone Paulino Finley MD Primary Care Provider [phone] Encounter Details Date Type Department Care Team (Late st Contact Info) Description 02/18/2023 Telephone Audiology at [address] [address] Ester Cardenas Social History Tobacco Use Types [...] 10:20 AM EST Office [place] [address] Sriram Contreras MD [facility] [place] [address] 10/31/2024 1:30 PM EST Office Visit Hematology/Oncology at [address] [phone] Dmitry Bhatti MD [facility] DR [place] [address] Ellen Mcrae APRN [facility] [place] [address] 10/31/2024 2:00 PM EST Infusion Hematology Oncology at [address] [phone] documented as of this encounter Visit Diagnoses Not on filedocumented in this encounter Care Teams Records Specialist Relationship Specialty Start Date End Date Paulino Finley MD [address] [place] [address] PCP - General Emergency Medicine 09/11/21 documented as of this encounter
--- OUTSIDE RECORDS SUMMARY | 2024-09-01 14:06 | XMS_ITS | Encounter Summary ---
[place] [address] Care Team Providers Care Media Developer Name Role Phone Jovon Sifuentes MD Primary Care Provider Encounter Details Date Type Department Care Team (Latest Contact Info) Description 09/25/2019 9:30 AM EST Office Visit Audiology at [address] [address] Valerie Toscano, [facility] [address] Sensorineural hearing loss, asymmetrical Social History Tobacco [...] with any interim concerns. Sabina Toscano MS, [facility] Clinical Coordinator, [place] [address] (fax) AMPLIFICATION EQUIPMENT LIST: HEARING AID RIGHT LEFT Make/Model/Style Phonak Audeo M30 R Phonak Audeo M30 R Casing Color White White Serial Number [id number] Battery Size Rechargeable Rechargeable Invoice number/date [id number] 08/24/19 [id number] 10/17/19 Other Comments PROGRAM/SETTINGS Fitting Algorithm DSL [...] HELENA / Dome specifics Size 03 M pc technician small vented dome Size 03 M pc technician small vented dome Impression Date Invoice number/date Other Comments ACCESSORIES Make/Model (color) Serial Number Warranty date Invoice number/date Settings Other Comments documented in this encounter Plan of Treatment Upcoming Encounters Date Type Department Care Team (Late st Contact Info) Description 09/18/2024 10:20 AM EST Office [place] [address] Sriram Contreras MD [facility] [place] [address] 10/31/2024 1:30 PM EST Office Visit Hematology/Oncology at [address] [phone] Dmitry Bhatti MD [facility] DR HEMATOLOGY [place] [address] Ellen Mcrae APRN [facility] [place] [address] 10/31/2024 2:00 PM EST Infusion Hematology Oncology at [address] [phone] documented as of this encounter Visit Diagnoses Diagnosis Sensorineural hearing loss, asymmetrical documented in this encounter Care Teams Media Developer Relationship Specialty Start Date End Date Jovon Sifuentes MD [address] [place] [address] PCP - General 09/30/10 09/10/21 documented as of this encounter
--- OUTSIDE RECORDS SUMMARY | 2024-09-01 14:06 | XMS_ITS | Encounter Summary ---
Author Organization [facility]ly [facility] [place] [address] Care Team Providers Care Grout Machine Tender Name Role Phone Paulino Finley MD Primary Care Provider Encounter Details Date Type Department Care Team (Late st Contact Info) Description 07/29/2023 Ancillary Procedure Radiology Library [place] [address] Paulino Finley MD [address] [place] [address] Social History Tobacco Use Types Packs/Day Years [...] 10:20 AM EST Office Visit [place] [address] Sriram Contreras MD [facility] [place] [address] 10/31/2024 1:30 PM EST Office Visit Hematology/Oncology at [address] [phone] Dmitry Bhatti MD [facility] DR HEMATOLOGY [place] [address] Ellen Mcrae APRN [facility] [place] [address] 10/31/2024 2:00 PM EST Infusion Hematology Oncology at [address] [phone] documented as of this encounter Procedures Procedure Name Priority Date/Time Associated Diagnosis Comments FILM LIBRARY STORAGE ONLY CT CHEST Routine 07/29/2023 12:00 AM EDT documented in this encounter Results * Film Library- Storage Only CT Chest (07/29/2023 12:00 AM EDT) Narrative [facility] - 07/30/2023 2:12 PM EDT This exam is auto-finalizing. It's purpose is for storage only. Paulino Finley MD IMG FILM LIBRARY ORD ERABLES [place], [place] documented in this encounter Visit Diagnoses Not on filedocumented in this encounter Care Teams Grout Machine Tender Relationship Specialty Start Date End Date Paulino Finley MD [address] [place] [address] PCP - General Emergency Medicine 09/11/21 documented as of this encounter
--- OUTSIDE RECORDS SUMMARY | 2024-09-01 14:06 | XMS_ITS | Encounter Summary ---
[place] [address] Care Team Providers Care Carcass Splitter Name Role Phone Paulino Finley MD Primary Care Provider [phone] Reason for Visit * Reason Onset Date Comments Prior Authorization 07/14/2023 Encounter Details Date Type Department Care Team (Late st Contact Info) Description 07/14/2023 Telephone Hematology [place] [phone] [place] Prior Authorization Social History Tobacco [...] 2:11 PM EDT Procedure Prior Authorization Procedure/Cpt: 54208 Ct chest Rationale: C61, C79.51 Health Plan: BS Vt Authorizing Vendor: [facility] Order/ Authorization #: Effective Date: 07/14/2023 - 09/11/2023 Status: Approved Rendering Facility: [address] [place] [address] Phone: TIN: [phone] documented in this encounter Plan of Treatment Upcoming Encounters Date Type Department Care Team (Late st Contact Info) Description 09/18/2024 10:20 AM EST Office [place] [address] Sriram Contreras MD [facility] DR [place] [address] 10/31/2024 1:30 PM EST Office Visit Hematology/Oncology at [address] [phone] Dmitry Bhatti MD [facility] DR HEMATOLOGY [place] [address] Ellen Mcrae APRN [facility] DR MEDICAL [place] [address] 10/31/2024 2:00 PM EST Infusion Hematology Oncology at [address] [phone] documented as of this encounter Visit Diagnoses Not on filedocumented in this encounter Care Teams Carcass Splitter Relationship Specialty Start Date End Date Paulino Finley MD [address] [place] [address] PCP - General Emergency Medicine 09/11/21 documented as of this encounter
--- OUTSIDE RECORDS SUMMARY | 2024-09-01 14:06 | XMS_ITS | Encounter Summary ---
Author Organization [facility] [place] [address] Care Team Providers Care Quality Inspector Name Role Phone Paulino Finley MD Primary Care Provider Encounter Details Date Type Department Care Team (Late st Contact Info) Description 08/09/2023 Notes [place] [phone] Casi Dong Social History Tobacco Use Types [...] 10:20 AM EST Office Visit [place] [phone] Sriarm Contreras MD [facility] [place] [address] 10/31/2024 1:30 PM EST Office Visit Hematology/Oncology at [address] [phone] Dmitry Bhatti MD [facility] DR [place] [address] Ellen Mcrae APRN [facility] [place] [address] 10/31/2024 2:00 PM EST Infusion Hematology Oncology at [address] [phone] documented as of this encounter Visit Diagnoses Not on filedocumented in this encounter Care Teams Quality Inspector Relationship Specialty Start Date End Date Paulino Finley MD [address] [place] [address] PCP - General Emergency Medicine 09/11/21 documented as of this encounter
--- OUTSIDE RECORDS SUMMARY | 2024-09-01 14:06 | XMS_ITS | Encounter Summary ---
Author [place] [address] Care Team Providers Care Wound/Ostomy Clinical Nurse Specialist Name Role Phone Paulino Finley MD Primary Care Provider [phone] Reason for Visit * Reason Comments Chemotherapy Cycle 1, Day 1; Doce taxel * Treatment/Therapy Plan Authorization (Routine) - Authorized Specialty Diagnoses / Procedures Referred By Contbela t Referred To Contact Hematology and Oncology Diagnoses Prostate cancer metastatic to multiple sites Procedures TC LEUPROLIDE ACETATE 7.5MG, FOR DEPOST SUSPENSION (LUPRON DEPOT) [id number] LUPRON DEPOT Dmitry Bhatti MD [address] [place] [address] DR HEMATOLOGY [place] [address] Dmitry Bhatti MD [address] [place] [place] [address] DR HEMATOLOGY [place] [address] Referral ID Status Reason Start Date Expiration Date V isits Requested Visits Authorized [id number] Authorized 07/08/2023 08/01/2025 101 Encounter Details Date Type Department Care Team (Late st Contact Info) Description 08/10/2023 10:00 AM EDT Infusion Hematology Oncology at [address] [phone] Prostate cancer metastatic to multiple sites; Malignant [...] clinic hours (8am-5pm Wednesday-Wednesday): pt. can call [phone] with questions or concerns. After clinic hours (5pm-8am Wednesday-Wednesday and weekends) pt can call [phone] and ask for the finish machine tender/oncologist generation technologist. Jose M Cristal verbalized understanding of potential [...] AM EST Office [place] [address] Sriram Contreras MD [facility] [place] [place] [address] 10/31/2024 1:30 PM EST Office Visit Hematology/Oncology at [address] [phone] Dmitry Bhatti [address] [facility] DR HEMATOLOGY [place] [address] Ellen Mcrae APRN [facility] [place] [address] 10/31/2024 2:00 PM EST Infusion Hematology Oncology at [address] [phone] documented as of this encounter Visit Diagnoses [...] mL/hr documented in this encounter Care Teams Wound/Ostomy Clinical Nurse Specialist Relationship Specialty Start Date End Date Paulino Finley MD [address] [place] [address] PCP - General Emergency Medicine 09/11/21 documented as of this encounter
--- OUTSIDE RECORDS SUMMARY | 2024-09-01 14:06 | XMS_ITS | Encounter Summary ---
Author Organization [facility] Address [facility] [address] Care Team Providers Care Double Cut Off Saw Operator Name Role Phone Jovon Sifuentes MD Primary Care Provider [phone] Reason for Visit * Reason Comments Follow-up dysphagia Encounter Details Date Type Department Care Team (Late st Contact Info) Description 11/09/2019 10:20 AM EST Office [place] [address] Sriram Contreras MD [facility] [place] [address] Cancer of base of tongue; Sensorineural hearing [...] Contreras MD - 11/09/2019 10:20 AM EST [facility] [...] is improving, needs liquid to help with impregnator and drier foods. Denies choking events. No odynophagia No [...] CPAP G47.33, Z99.89 ??? Adult BMI 30+ [id number] PAST MEDICAL HISTORY Past Medical History: Diagnosis [...] the TelePack Unit and uploaded to the [employer] C[employer]. Findings Nasal cavity normal mucosa of septum [...] number below. Electronically signed by: Saud Sloan [facility] ([phone]), at 11/09/2019 9:58 AM EXAMINATION: CT CHEST [...] number below. Electronically signed by: Alley Pham [facility] ([phone]), at 11/09/2019 10:50 AM ASSESSMENT/RECOMMENDATIONS Jose Bee [...] Bee's care. Russ Connolly PA-C Pager: 202511/09/2019 [facility] Otol[facility] Attending Note Patient seen and examined [...] 10:20 AM EST Office [place] [address] Sriram Contreras MD [facility] [place] [address] 10/31/2024 1:30 PM EST Office Visit Hematology/Oncology at [address] [phone] Dmitry Bhatti MD [facility] [place] [address] Ellen Mcrae APRN [facility] [place] [address] 10/31/2024 2:00 PM EST Infusion Hematology Oncology at [address] [phone] documented as of this encounter Visit Diagnoses Diagnosis 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
--- OUTSIDE RECORDS SUMMARY | 2024-09-01 14:06 | XMS_ITS | Encounter Summary ---
[place] [address] Care Team Providers Care Managing Cognitive Engineer Name Role Phone Paulino Finley MD Primary Care Provider [phone] Reason for Visit * Reason Onset Date Comments Follow-up 08/11/2023 S/p first chemo Encounter Details Date Type Department Care Team (Late st Contact Info) Description 08/11/2023 Telephone Hematology/Oncology at [address] [phone] Shad Hernandez RN Follow-up (S/p first chemo [...] aware of when to remove. Reinforced to patient/care-summer child caregiver to call facility 31/05 with any new/worsening [...] 10:20 AM EST Office [place] [address] Sriram Contreras MD [facility] [place] [address] 10/31/2024 1:30 PM EST Office Visit Hematology/Oncology at [address] [phone] Dmitry Bhatti MD [facility] DR HEMATOLOGY [place] [address] Ellen Mcrae APRN [facility] [place] [address] 10/31/2024 2:00 PM EST Infusion Hematology Oncology at [address] [phone] documented as of this encounter Visit Diagnoses Not on filedocumented in this encounter Care Teams Managing Cognitive Engineer Relationship Specialty Start Date End Date Paulino Finley MD [address] [place] [address] PCP - General Emergency Medicine 09/11/21 documented as of this encounter
--- OUTSIDE RECORDS SUMMARY | 2024-09-01 14:06 | XMS_ITS | Encounter Summary ---
Author Organization [facility] [place] [address] Care Team Providers Care Bone Drier Name Role Phone Paulino Finley MD Primary Care Provider [phone] Encounter Details Date Type Department Care Team [...] 10:20 AM EST Office [place] [address] Sriram Contreras MD [facility] [place] [address] 10/31/2024 1:30 PM EST Office Visit Hematology/Oncology at [address] [address] Dmitry Bhatti MD [facility] DR [place] [address] Ellen Mcrae APRN [facility] [place] [address] 10/31/2024 2:00 PM EST Infusion Hematology Oncology at [address] [phone] documented as of this encounter Visit Diagnoses Not on filedocumented in this encounter Care Teams Bone Drier Relationship Specialty Start Date End Date Paulino Finley MD [address] [place] [address] PCP - General Emergency Medicine 09/11/21 documented as of this encounter
--- OUTSIDE RECORDS SUMMARY | 2024-09-01 14:06 | XMS_ITS | Encounter Summary ---
Author Organization [facility]ly [facility] [place] [address] Care Team Providers Care Child Nutrition Assistant Name Role Phone Paulino Finley MD Primary Care Provider [phone] Encounter Details Date Type Department Care Team (Latest Contact Info) Description 08/10/2023 9:00 AM EDT Clinical Support Hematology/Oncology at [address] [phone] Dmitry Bhatti MD [facility] DR HEMATOLOGY [place] [address] Dina Schrader APRN [facility] [place] [address] Prostate cancer metastatic to multiple sites Social [...] on May 13. Pathology revealed prostatic adenocarcinoma Mount[place] 5+4. Staging CT abdomen and pelvis and [...] fibrillation March 2017: noted in ED in [facility]. Previously noted to be paroxysmal. 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 He is to Briana for 40 yrs. 4 children - All live in different states - One Kathleen Enjoys raising Beef Cattle and doing Civil War and Living History and shoot Black powder/Antique firearms. He enjoys builiding Firearms/Blacksmithing - Charcoal, Landers, etc. Social Determinants of Health Financial Resource [...] adenocarcinoma, involving 1 of 1 core. - [place] score 4 + 5 = 9 (grade group 5), tumor extent 1 mm (15% of core). - Perineural invasion is identified. C. PROSTATE, RIGHT MID LATERAL, NEEDLE CORE BIOPSY: - Prostatic adenocarcinoma, involving 1 of 1 core. - [place] score 5 + 4 = 9 (grade group 5), tumor extent 10 mm (80% of core). D. PROSTATE, RIGHT MID MEDIAL, NEEDLE CORE BIOPSY: - Prostatic adenocarcinoma, involving 1 of 1 core. - [place] score 4 + 5 = 9 (grade group 5), tumor extent 9 mm (80% of core). E. PROSTATE, RIGHT APEX LATERAL, NEEDLE CORE BIOPSY: - Prostatic adenocarcinoma, involving 1 of 1 core. - [place] score 5 + 4 = 9 (grade group 5), tumor extent 16 mm (100% of core). - Perineural invasion is identified. F. PROSTATE, RIGHT APEX MEDIAL, NEEDLE CORE BIOPSY: - Prostatic adenocarcinoma, involving 1 of 1 core. - [place] score 5 + 4 = 9 (grade group 5), tumor extent 15 mm (95% of core). - Perineural invasion is identified. G. PROSTATE, LEFT BASE LATERAL, NEEDLE CORE BIOPSY: - Atypical small acinar proliferation (LOLITA), highly suspicious for minute focus (0.1 mm) of prostatic adenocarcinoma. H. PROSTATE, LEFT BASE MEDIAL, NEEDLE CORE BIOPSY: - Prostatic adenocarcinoma, involving 1 of 1 core. - [place] score 4 + 3 = 7 (grade group 3), 70% Marko pattern 4, tumor extent 6 mm (40% of core). - Cribriform Marko pattern 4 is present. I. PROSTATE, LEFT MID LATERAL, NEEDLE CORE BIOPSY: - Prostatic adenocarcinoma, involving 1 of 1 core. - [place] score 3 + 5 = 8 (grade [...] Food and Drug Administration approved darolutamide (Nubeqa, Ubicom.) tablets in combination with docetaxel for adult patients with metastatic hormone-sensitive prostate cancer (mHSPC). Efficacy was based on ARASENS ([id number]), a randomized, multicenter, double- blind, placebo-controlled clinical trial in 1306 patients with mHSPC. Patients were randomized to receive either darolutamide 600 mg orally twice daily plus docetaxel 75 mg/m2 intravenously administered every 3 weeks forup to 6 cycles or docetaxel plus placebo. All patients received a gonadotropin-releasing hormone analog concurrently or had a bilateral orchiectomy. The primary efficacy measure was overall survival (OS). Eben-xp-pxnq progression was an additional efficacy measure. Median OS was not reached (NR) (95% CI: NR, NR) in the darolutamide plus docetaxelarm and 48.9 months (95% CI: 44.4, NR) in docetaxel plus placebo arm (HR 0.68; 95% CI: 0.57, 0.80; p<0.0001). Treatment with darolutamide and docetaxel resulted in a statistically significant delay in btxx-na-lras progression (HR 0.79; 95% CI: 0.66, 0.95; [...] 10:20 AM EST Office [place] [address] Sriram Contreras MD [facility] [place] [address] 10/31/2024 1:30 PM EST Office Visit Hematology/Oncology at [address] [phone] Dmitry Bhatti MD [facility] DR HEMATOLOGY [place] [address] Ellen Mcrae APRN [facility] [place] [address] 10/31/2024 2:00 PM EST Infusion Hematology Oncology at [address] [phone] documented as of this encounter Visit Diagnoses Diagnosis Prostate cancer metastatic to multiple sites Malignant neoplasm of prostate documented in this encounter Care Teams Child Nutrition Assistant Relationship Specialty Start Date End Date Paulino Finley MD [address] [place] [address] PCP - General Emergency Medicine 09/11/21 documented as of this encounter
--- OUTSIDE RECORDS SUMMARY | 2024-09-01 14:06 | XMS_ITS | Encounter Summary ---
[place] [address] Care Team Providers Care Armed Security Professional Name Role Phone Jovon Sifuentes MD Primary Care Provider Encounter Details Date Type Department Care Team (Late st Contact Info) Description 08/18/2019 Telephone [place] [phone] Angy Noriega Social History Tobacco Use Types [...] 10:20 AM EST Office [place] [phone] [facility] [place] [address] 10/31/2024 1:30 PM EST Office Visit Hematology/Oncology at [address] [phone] [facility] DR [place] [address] [facility] [place] [address] 10/31/2024 2:00 PM EST Infusion Hematology Oncology at [address] [phone] documented as of this encounter Visit Diagnoses Not on filedocumented in this encounter Care Teams Armed Security Professional Relationship Specialty Start Date End Date Jovon Sifuentes MD [address] [place] [address] PCP - General 09/30/10 09/10/21 documented as of this encounter
--- OUTSIDE RECORDS SUMMARY | 2024-09-01 14:06 | XMS_ITS | Encounter Summary ---
Author Organization [facility] [place] [address] Care Team Providers Care Credentialing Specialist Name Role Phone Paulino Finley MD Primary Care Provider [phone] Encounter Details Date Type Department Care Team [...] 10:20 AM EST Office Visit [place] [address] Sriram Contreras MD [facility] [place] [address] 10/31/2024 1:30 PM EST Office Visit Hematology/Oncology at [address] [phone] Dmitry Bhatti MD [facility] DR HEMATOLOGY [place] [address] Ellen Mcrae APRN [facility] [place] [address] 10/31/2024 2:00 PM EST Infusion Hematology Oncology at [address] [phone] documented as of this encounter Visit Diagnoses Not on filedocumented in this encounter Care Teams Credentialing Specialist Relationship Specialty Start Date End Date Paulino Finley MD [address] [place] [address] PCP - General Emergency Medicine 09/11/21 documented as of this encounter
--- OUTSIDE RECORDS SUMMARY | 2024-09-01 14:06 | XMS_ITS | Encounter Summary ---
[place] [address] Care Team Providers Care Matching Machine Operator Name Role Phone Jovon Sifuentes MD Primary Care Provider Encounter Details Date Type Department Care Team (Latest Contact Info) Description 04/04/2020 10:15 AM EDT Clinical Support Audiology at [address] [phone] Estela Edmond AUD [facility] [place] [address] Sensorineural hearing loss, asymmetrical Social History Tobacco [...] not power on when removing from the product development technician. When placed back in the product development technician, light was blinking red. ?? In-house repair attempted unsuccessfully. Sending hearing instrument to in- warranty manufacturerrepair. ?? Attempted to contact Mr. Bee via home and mobile number, however a voicemail message couldnot be left. ?? Mail to patient upon return from repair. Case on HIS shelf. PLAN: Patient to return for routine audiologic care as recommended by managing capacitor pack press operator. Contactthis Section in the interim for any concerns related to changes in hearing or aided benefit. David Avery Clinical Data Warehousing Architect [place] [phone] AMPLIFICATION EQUIPMENT LIST: HEARING AID RIGHT LEFT Make/Model/Style Phonak Audeo M30 R Phonak Audeo M30 R Casing Color White White Serial Number [id number] Battery Size Rechargeable Rechargeable Invoice number/date [id number] 08/24/19 [id number] 08/24/19 Other Comments PROGRAM/SETTINGS Fitting Algorithm DSL [...] HELENA / Dome specifics Size 03 M processing clerk small vented dome Size 03 M processing clerk small vented dome Impression Date Invoice number/date Other Comments ACCESSORIES Make/Model (color) Serial Number Warranty date Invoice number/date Settings Other Comments documented in this encounter Plan of Treatment Upcoming Encounters Date Type Department Care Team (Late st Contact Info) Description 09/18/2024 10:20 AM EST Office [place] [address] Sriram Contreras MD [facility] [place] [address] 10/31/2024 1:30 PM EST Office Visit Hematology/Oncology at [address] [phone] Dmitry Bhatti MD [facility] [place] [address] Ellen Mcrae APRN [facility] [place] [address] 10/31/2024 2:00 PM EST Infusion Hematology Oncology at [address] [phone] documented as of this encounter Visit Diagnoses Diagnosis Sensorineural hearing loss, asymmetrical documented in this encounter Care Teams Matching Machine Operator Relationship Specialty Start Date End Date Jovon Sifuentes MD [address] [place] [address] PCP - General 09/30/10 09/10/21 documented as of this encounter
--- OUTSIDE RECORDS SUMMARY | 2024-09-01 14:06 | XMS_ITS | Encounter Summary ---
[place] [address] Care Team Providers Care Numerical Control Machine Machinist Name Role Phone Paulino Finley MD Primary Care Provider [phone] Reason for Visit * Reason Onset Date Comments Follow-up 08/16/2023 Encounter Details Date Type Department Care Team (Late st Contact Info) Description 08/16/2023 Telephone Hematology/Oncology at [address] [phone] Asuncion Valencia RN Follow-up Social [...] our office if his symptoms return, call [facility] ([phone]) and ask to speak with the provider yellow pages space salesperson if it happens to be the evening [...] achy and having diarrhea and stomach pain. warping machine operator Note Diagnosis: Metastatic Prostate CA Treatment: C1D1 [...] and fluids without issue. Nausea- None Dizziness/lightheaded: [place] some lightheadedness this weekend and today. Changing positions slowly. [place] body aches over the weekend, this is [...] 10:20 AM EST Office [place] [address] Sriram Contreras MD [facility] [place] [address] 10/31/2024 1:30 PM EST Office Visit Hematology/Oncology at [address] [phone] Dmitry Bhatti MD [facility] [place] [address] Ellen Mcrae APRN [facility] [place] [address] 10/31/2024 2:00 PM EST Infusion Hematology Oncology at [address] [phone] documented as of this encounter Visit Diagnoses Not on filedocumented in this encounter Care Teams Numerical Control Machine Machinist Relationship Specialty Start Date End Date Paulino Finley MD [address] [place] [address] PCP - General Emergency Medicine 09/11/21 documented as of this encounter
--- OUTSIDE RECORDS SUMMARY | 2024-09-01 14:06 | XMS_ITS | Encounter Summary ---
[place] [address] Care Team Providers Care Patrol Police Sergeant Name Role Phone Jovon Sifuentes MD Primary Care Provider [phone] Reason for Visit * Reason Onset Date Comments Questions 05/20/2020 pre procedure ho ld of Eliquis Encounter Details Date Type Department Care Team (Late st Contact Info) Description 05/20/2020 Telephone Cardiology at [address] [phone] Flor Alba, RN Questions (pre procedure hold [...] [facility] (uri [phone]) requesting hold instructions for the Eliquis. He [...] 10:20 AM EST Office [place] [address] Sriram Contreras MD [facility] [place] [address] 10/31/2024 1:30 PM EST Office Visit Hematology/Oncology at [address] [phone] Dmitry Bhatti MD [facility] DR [place] [address] Ellen Mcrae APRN [facility] [place] [address] 10/31/2024 2:00 PM EST Infusion Hematology Oncology at [address] [phone] documented as of this encounter Visit Diagnoses Not on filedocumented in this encounter Care Teams Patrol Police Sergeant Relationship Specialty Start Date End Date Jovon Sifuentes MD [address] [place] [address] PCP - General 09/30/10 09/10/21 documented as of this encounter
--- OUTSIDE RECORDS SUMMARY | 2024-09-01 14:06 | XMS_ITS | Encounter Summary ---
Author Organization [facility] [place] [address] Care Team Providers Care Remedy Developer Name Role Phone Paulino Finley MD Primary Care Provider [phone] Reason for Visit * Reason Comments Advice Only * Consultation (Routine) - Closed Specialty Diagnoses / Procedures Referred By Huma valladares Referred To Contact Hematology and Oncology Diagnoses Malignant neoplasm of prostate Procedures treatment options Dinesh Phelps MD [address] [place] [address] Dmitry Steven MD [facility] [address] [place] [address] Referral ID Status Reason Start Date Expiration Date Visits Re quested Visits Authorized [id number] Closed 06/14/2023 06/13/2024 1 1 Encounter Details Date Type Department Care Team (Late st Contact Info) Description 07/08/2023 1:00 PM EDT Office Visit Hematology [place] [address] Dmitry Steven MD [facility] [address] [place] [address] Malignant neoplasm of prostate metastatic to bone [...] fibrillation March 2017: noted in ED in [facility]. Previously noted to be paroxysmal. 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 He is to Briana for 40 yrs. 4 children - All live in different states - [place]. Enjoys raising Beef Cattle and doing Civil War and Living History and shoot Black powder/Antique firearms. He enjoys builiding Firearms/Blacksmithing - [place]coal, [place], etc. Social Determinants of Health Financial Resource [...] adenocarcinoma, involving 1 of 1 core. - [place] score 4 + 5 = 9 (grade group 5), tumor extent 1 mm (15% of core). - Perineural invasion is identified. C. PROSTATE, RIGHT MID LATERAL, NEEDLE CORE BIOPSY: - Prostatic adenocarcinoma, involving 1 of 1 core. - [place] score 5 + 4 = 9 (grade group 5), tumor extent 10 mm (80% of core). D. PROSTATE, RIGHT MID MEDIAL, NEEDLE CORE BIOPSY: - Prostatic adenocarcinoma, involving 1 of 1 core. - [place] score 4 + 5 = 9 (grade group 5), tumor extent 9 mm (80% of core). E. PROSTATE, RIGHT APEX LATERAL, NEEDLE CORE BIOPSY: - Prostatic adenocarcinoma, involving 1 of 1 core. - [place] score 5 + 4 = 9 (grade [...] adenocarcinoma, involving 1 of 1 core. - [place] score 4 + 3 = 7 (grade [...] adenocarcinoma, involving 1 of 1 core. - [place] score 5 + 4 = 9 (grade [...] Food and Drug Administration approved darolutamide (Nubeqa, Somewhere.) tablets in combination with docetaxel for adult patients with metastatic hormone-sensitive prostate cancer (mHSPC). Efficacy was based on ARASENS ([id number]), a randomized, multicenter, double- blind, placebo-controlled clinical trial in 1306 patients with mHSPC. Patients were randomized to receive either darolutamide 600 mg orally twice daily plus docetaxel 75 mg/m2 intravenously administered every 3 weeks forup to 6 cycles or docetaxel plus placebo. All patients received a gonadotropin-releasing hormone analog concurrently or had a bilateral orchiectomy. The primary efficacy measure was overall survival (OS). Nixd-do-dkfn progression was an additional efficacy measure. Median OS was not reached (NR) (95% CI: NR, NR) in the darolutamide plus docetaxelarm and 48.9 months (95% CI: 44.4, NR) in docetaxel plus placebo arm (HR 0.68; 95% CI: 0.57, 0.80; p<0.0001). Treatment with darolutamide and docetaxel resulted in a statistically significant delay in kjfg-yp-rmvn progression (HR 0.79; 95% CI: 0.66, 0.95; [...] CBC, CMP, PSA, testosterone, chemotherapy teaching by SET UP AND LAY OUT INSPECTOR and first cycle of docetaxel with Becky [...] 10:20 AM EST Office [place] [phone] Sriram Contreras MD [facility] [place] [address] 10/31/2024 1:30 PM EST Office Visit Hematology/Oncology at [address] [phone] Dmitry Steven MD [facility] DR H[place]ATOLOG[place] [address] Ellen Mcrae APRN [facility] [place] [address] 10/31/2024 2:00 PM EST Infusion Hematology Oncology at [address] [phone] Scheduled Orders Name Type Priority [...] (ABNORMAL) Testosterone, total (07/08/2023 2:07 PM EDT) [facility] Signature Testosterone <0.12(L) 1.93 - 7.40 ng/mL [facility] Comment: Pediatric Reference Ranges: ? Males [...] In Lab Dmitry Steven MD CHEMISTRY ORDERABLES [facility] [place] [address] * (ABNORMAL) Comprehensive metabolic panel (non-fasting) (07/08/2023 2:07 PM EDT) Glucose 73 65 - 199 mg/dL [facility] Comment:Diabetes: >=200 mg/d L plus symptoms Blood Urea Nitrogen 16 10 - 20 mg/dL [facility] Creatinine 1.12 0.80 - 1.50 mg/dL [facility] Sodium 143 135 - 145 mmol/L [facility] Potassium 4.4 3.5 - 5.0 mmol/L [facility] Comment: Please note: ??Patients with WBC >100,000 may have falsely elevated Potassium levels. ??For accurate Potassium quantification in these patients send serum separator tube (gold top) for subsequent determinations. ??Contact the Clinical Chemistry Laboratory if there are any questions. Chloride 109(H) 98 - 107 mmol/L [facility] Carbon Dioxide 24 22 - 31 mmol/L [facility] Anion Gap 10 5 - 15 mmol/L [facility] Calcium 9.4 8.5 - 10.5 mg/dL [facility] Protein, Total 7.2 6.1 - 8.0 g/dL [facility] Albumin 4.2 3.2 - 5.2 g/dL [facility] Aspartate Aminotransferase 17 0 - 39 unit/L [facility] Alanine Aminotransferase 17 0 - 55 unit/L [facility] Alkaline Phosphatase 407(H) 40 - 130 unit/L [facility] Bilirubin, Total 0.2 0.2 - 1.3 mg/dL [facility] Est Glomerular Filtration Rate 69 >=60 mL/min/1. 73 m?? [facility] Comment: This patient's estimated GFR was [...] In Lab Dmitry Steven MD CHEMISTRY ORDERABLES [facility] [place] [address] * (ABNORMAL) PSA (Ultrasensitive) (07/08/2023 2:07 PM EDT) Prostate Specific Antigen (Ultrasensitive) 18.80(H) 0.00 - 4.00 ng/mL [facility] Comment: PLEASE NOTE: The above reference [...] In Lab Dmitry Steven MD CHEMISTRY ORDERABLES [facility] [place] [id number] documented in this encounter Visit Diagnoses Diagnosis Malignant neoplasm of prostate metastatic to bone- Primary Malignant neoplasm of prostate Androgen deprivation therapy Encounter for therapeutic drug monitoring documented in this encounter Care Teams Remedy Developer Relationship Specialty Start Date End Date Paulino Finley MD [address] [place] [address] PCP - General Emergency Medicine 09/11/21 documented as of this encounter
--- OUTSIDE RECORDS SUMMARY | 2024-09-01 14:06 | XMS_ITS | Encounter Summary ---
[place] [address] Care Team Providers Care Medical Record Librarians Teacher Name Role Phone Jovon Sifuentes MD Primary Care Provider Encounter Details Date Type Department Care Team (Late st Contact Info) Description 08/14/2019 Telephone [place] [phone] Angy Noriega Social History Tobacco Use Types [...] EST Office [place] [phone] Sriram Contreras MD [facility] [address] 10/31/2024 1:30 PM EST Office Visit Hematology/Oncology at [address] [phone] Dmitry Bhatti MD [facility] DR HEMATOLOGY [place] [address] Ellen Mcrae APRN [facility] [place] [address] 10/31/2024 2:00 PM EST Infusion Hematology Oncology at [address] [phone] documented as of this encounter Visit Diagnoses Not on filedocumented in this encounter Care Teams Medical Record Librarians Teacher Relationship Specialty Start Date End Date Jovon Sifuentes MD [address] [place] [address] PCP - General 09/30/10 09/10/21 documented as of this encounter
--- OUTSIDE RECORDS SUMMARY | 2024-09-01 14:06 | XMS_ITS | Encounter Summary ---
Author Organization [facility] [place] [address] Care Team Providers Care Commodities Requirements Analyst Name Role Phone Paulino Finley MD Primary Care Provider Encounter Details Date Type Department Care Team (Late st Contact Info) Description 06/04/2023 Ancillary Procedure Radiology Library at [facility] [place] [address] Paulino Finley MD [address] [place] [address] Social History Tobacco Use Types Packs/Day Years [...] 10:20 AM EST Office Visit [place] [address] Sriram Contreras MD [facility] [place] [address] 10/31/2024 1:30 PM EST Office Visit Hematology/Oncology at [address] [phone] Dmitry Bhatti MD [facility] DR [place] [address] Ellen Mcrae APRN [facility] [place] [address] 10/31/2024 2:00 PM EST Infusion Hematology Oncology at [address] [phone] documented as of this encounter Procedures Procedure Name Priority Date/Time Associated Diagnosis Comments FILM LIBRARY STORAGE ONLY NUCLEAR MEDICINE Routine 06/04/2023 12:00 AM EDT documented in this encounter Results * Film Library- Storage Only nuclear medicine (06/04/2023 12:00 AM EDT) Narrative [facility] - 11/23/2023 2:50 PM EST This exam is auto-finalizing. It's purpose is for storage only. Paulino Finley MD IMG FILM LIBRARY ORD ERABLES [place], [place] documented in this encounter Visit Diagnoses Not on filedocumented in this encounter Care Teams Commodities Requirements Analyst Relationship Specialty Start Date End Date Paulino Finley MD [address] [place] [address] PCP - General Emergency Medicine 09/11/21 documented as of this encounter
--- OUTSIDE RECORDS SUMMARY | 2024-09-01 14:07 | XMS_ITS | Encounter Summary ---
Author Organization [facility] [place] [address] Care Team Providers Care Electrical Equipment Tester Name Role Phone Jovon Sifuentes MD Primary Care Provider Encounter Details Date Type Department Care Team (Late st Contact Info) Description 12/02/2017 Telephone [place] [address] Sriram Contreras MD [facility] [address] Social History Tobacco Use Types Packs/Day Years [...] 10:20 AM EST Office Visit [place] [address] Sriram Contreras MD [facility] [place] [address] 10/31/2024 1:30 PM EST Office Visit Hematology/Oncology at [address] [phone] Dmitry Bhatti MD [facility] DR [place] [address] Ellen Mcrae APRN [facility] [place] [address] 10/31/2024 2:00 PM EST Infusion Hematology Oncology at [address] [phone] documented as of this encounter Visit Diagnoses Not on filedocumented in this encounter Care Teams Electrical Equipment Tester Relationship Specialty Start Date End Date Jovon Sifuentes MD [address] [place] [address] PCP - General 09/30/10 09/10/21 documented as of this encounter
--- OUTSIDE RECORDS SUMMARY | 2024-09-01 14:07 | XMS_ITS | Encounter Summary ---
Author Organization [facility] [place] [address] Care Team Providers Care Test Lead Application Testing Name Role Phone Jovon Sifuentes MD Primary Care Provider Encounter Details Date Type Department Care Team (Late st Contact Info) Description 09/20/2017 Telephone Hematology [place] [address] Geovanna Deleon MD [facility] [place] [address] Social History Tobacco Use Types Packs/Day Years [...] AM EST Office Visit [place] [address] Sriram Contreras MD [facility] [place] [place] [address] 10/31/2024 1:30 PM EST Office Visit Hematology/Oncology at [address] [place] [address] [phone] Dmitry Bhatti MD [facility] [place] [address] Ellen Mcrae APRN [facility] [place] [address] 10/31/2024 2:00 PM EST Infusion Hematology Oncology at [address] [place] [address] [phone] documented as of this encounter Visit Diagnoses Not on filedocumented in this encounter Care Teams Test Lead Application Testing Relationship Specialty Start Date End Date Jovon Sifuentes MD [address] [place] [address] PCP - General 09/30/10 09/10/21 documented as of this encounter
--- OUTSIDE RECORDS SUMMARY | 2024-09-01 14:07 | XMS_ITS | Encounter Summary ---
Author [facility] [place] [address] Care Team Providers Care Civil Design Technician Name Role Phone Jovon Sifuentes MD Primary Care Provider [phone] Encounter Details Date Type Department Care Team (Late st Contact Info) Description 02/10/2018 10:20 AM EDT Office Visit [place] [address] Sriram Contreras MD [facility] [place] [address] Cancer of base of tongue Social History [...] Contreras MD - 02/10/2018 10:20 AM EDT [facility] HEAD [...] CPAP G47.33, Z99.89 ??? Adult BMI 30+ [id number] PAST MEDICAL HISTORY Past Medical History: Diagnosis [...] the Tele[employer] and uploaded to the [email or web address] Test Preparer. 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
--- OUTSIDE RECORDS SUMMARY | 2024-09-01 14:07 | XMS_ITS | Encounter Summary ---
[place] [address] Care Team Providers Care Drug Abuse Treatment Specialist Name Role Phone Jovon Sifuentes MD Primary Care Provider [phone] Encounter Details Date Type Department Care Team (Latest Contact Info) Description 06/29/2019 10:15 AM EDT Office Visit Audiology at [address] [address] Yulissa Munoz AUD [facility] [address] Bilateral asymmetric sensorineural hearing loss Social History [...] a MUTE at the fitting Sudarshan Montoya, Alternative Energy Engineer Formerly [facility] [place] [address] ; [phone] (fax) documented in this encounter Plan of Treatment Upcoming Encounters Date Type Department Care Team (Late st Contact Info) Description 09/18/2024 10:20 AM EST Office [place] [address] Sriram Contreras MD [facility] [place] [address] 10/31/2024 1:30 PM EST Office Visit Hematology/Oncology at [address] [address] Dmitry Bhatti MD [facility] [place] [address] Ellen Mcrae APRN [facility] [place] [address] 10/31/2024 2:00 PM EST Infusion Hematology Oncology at [address] [phone] documented as of this encounter Visit Diagnoses Diagnosis Bilateral asymmetric sensorineural hearing loss documented in this encounter Care Teams Drug Abuse Treatment Specialist Relationship Specialty Start Date End Date Jovon Sifuentes MD [address] [place] [address] PCP - General 09/30/10 09/10/21 documented as of this encounter
--- OUTSIDE RECORDS SUMMARY | 2024-09-01 14:07 | XMS_ITS | Encounter Summary ---
Author Organization [facility] [place] [address] Care Team Providers Care Ux Ui Designer Name Role Phone Jovon Sifuentes MD Primary Care Provider [phone] Encounter Details Date Type Department Care Team (Late st Contact Info) Description 08/07/2017 Telephone [place] [address] Hilton Cheney PA [facility] [place] [address] Social History Tobacco Use Types Packs/Day Years [...] 10:20 AM EST Office Visit [place] [address] Sriram Contreras MD [facility] [place] [address] 10/31/2024 1:30 PM EST Office Visit Hematology/Oncology at [address] [address] Dmitry Bhatti MD [facility] DR HEMATOLOGY [place] [address] Ellen Mcrae APRN [facility] [place] [address] 10/31/2024 2:00 PM EST Infusion Hematology Oncology at [address] [phone] documented as of this encounter Visit Diagnoses Not on filedocumented in this encounter Care Teams Ux Ui Designer Relationship Specialty Start Date End Date Jovon Sifuentes MD [address] [place] [address] PCP - General 09/30/10 09/10/21 documented as of this encounter
--- OUTSIDE RECORDS SUMMARY | 2024-09-01 14:07 | XMS_ITS | Encounter Summary ---
Author Organization [facility]ly [place] [address] Care Team Providers Care Swimming Coach Or Instructor Name Role Phone Jovon Sifuentes MD Primary Care Provider [phone] Reason for Visit * Reason Comments Follow-up Larynx Cancer Encounter Details Date Type Department Care Team (Late st Contact Info) Description 12/16/2017 10:00 AM EST Office [place] [address] Sriram Contreras MD [facility] [place] [address] Cancer of base of tongue Social History [...] Contreras MD - 12/16/2017 10:00 AM EST [facility] OTOLARYNGOLOGY HEAD AND NECK TUMOR CLINIC FOLLOW [...] CPAP G47.33, Z99.89 ??? Adult BMI 30+ [id number] ??? Head and neck cancer C76.0 ??? [...] the TelePack Unit and uploaded to the Mega[employer] Exposure Machine Operator. Findings Nasal cavity Normal Nasopharynx normal Oropharynx [...] 10:20 AM EST Office [place] [address] Sriram Contreras MD [facility] [place] [address] 10/31/2024 1:30 PM EST Office Visit Hematology/Oncology at [address] [phone] Dmitry Bhatti MD [facility] [place] [address] Ellen Mcrae APRN [facility] [place] [address] 10/31/2024 2:00 PM EST Infusion Hematology Oncology at [address] [phone] documented as of this encounter Visit Diagnoses Diagnosis 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
--- OUTSIDE RECORDS SUMMARY | 2024-09-01 14:07 | XMS_ITS | Encounter Summary ---
[place] [address] Care Team Providers Care Autopsy Pathologist Name Role Phone Jovon Sifuentes MD Primary Care Provider Reason for Referral * Diagnostic Test (Routine) - Closed Specialty Diagnoses / Procedures Referred By Contac t Referred To Contact Radiology Diagnoses Cancer of base of tongue Procedures CT Chest w Contrast Sriram Contreras MD [facility] [place] [address] [facility] [place] [address] Referral ID Status Reason Start Date Expiration Date V isits Requested Visits Authorized [id number] Closed Specialty Service Requested 06/29/2019 06/28/2020 1 1 * Diagnostic Test (Routine) - Closed Specialty Diagnoses / Procedures Referred By Contac t Referred To Contact Radiology Diagnoses Cancer of base of tongue Procedures CT Neck Soft Tissue w Contrast (Generic) Sriram Contreras MD [facility] [place] [address] [facility] [place] [address] Referral ID Status Reason Start Date Expiration Date V isits Requested Visits Authorized [id number] Closed Specialty Service Requested 06/29/2019 06/28/2020 1 1 Reason for Visit * Reason Comments Follow-up Encounter Details Date Type Department Care Team (Late st Contact Info) Description 06/29/2019 9:40 AM EDT Office [place] [address] Sriram Contreras MD [facility] [place] [address] Cancer of base of tongue Social History [...] MD - 06/29/2019 9:40 AM EDT . [facility] OTOLARYNGOLOGY HEAD AND NECK TUMOR [...] CPAP G47.33, Z99.89 ??? Adult BMI 30+ [id number] PAST MEDICAL HISTORY Past Medical History: Diagnosis [...] the TelePack Unit and uploaded to the [employer] Airfreight Operations Agent. Findings Nasal cavity Right nasal cavity examination [...] EST Office [place] [address] Sriram Contreras MD [facility] [place] [address] 10/31/2024 1:30 PM EST Office Visit Hematology/Oncology at [address] [phone] Dmitry Bhatti MD [facility] DR HEMATOLOGY [place] [address] Ellen Mcrae APRN [facility] [place] [address] 10/31/2024 2:00 PM EST Infusion Hematology Oncology at [address] [phone] documented as of this encounter Results * [...] and the final report dictated in [place]. Thank you for letting us participate in the care of this patient. Forquestions regarding this report, please contact the number below. 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
--- OUTSIDE RECORDS SUMMARY | 2024-09-01 14:07 | XMS_ITS | Encounter Summary ---
[place] [address] Care Team Providers Care Bullet Slug Casting Machine Operator Name Role Phone Jovon Sifuentes MD Primary Care Provider Reason for Referral * Diagnostic Test (Routine) - Closed Specialty Diagnoses / Procedures Referred By Contac t Referred To Contact Radiology Diagnoses Cancer of base of tongue Procedures CT Chest w Contrast Sriram Contreras MD [facility] [place] [address] [facility] [place] [address] Referral ID Status Reason Start Date Expiration Date V isits Requested Visits Authorized [id number] Closed Specialty Service Requested 07/21/2018 09/18/2018 1 1 * Diagnostic Test (Routine) - Specialty Diagnoses / Procedures Referred By Contac t Referred To Contact Radiology Diagnoses Cancer of base of tongue Procedures CT Neck Soft Tissue w Contrast (Generic) Sriram Contreras MD [facility] [place] [address] [facility] [place] [address] Referral ID Status Reason Start Date Expiration Date Visits Requested Visits Authorized [id number] Specialty Service Requested 07/21/2018 09/18/2018 1 1 Encounter Details Date Type Department Care Team (Late st Contact Info) Description 07/04/2018 Orders [place] [address] Sriram Contreras MD [facility] [place] [address] Cancer of base of tongue Social History [...] 10:20 AM EST Office [place] [address] Sriram Contreras MD [facility] [place] [address] 10/31/2024 1:30 PM EST Office Visit Hematology/Oncology at [address] [phone] Dmitry Bhatti MD [facility] DR HEMATOLOGY [place] [address] Ellen Mcrae APRN [facility] [place] [address] 10/31/2024 2:00 PM EST Infusion Hematology Oncology at [address] [phone] documented as of this encounter Results * [...] upper lobe noncalcified pulmonary nodule (series 5 ). There are two sub-5 mm nodules in [...] tongue documented in this encounter Care Teams Bullet Slug Casting Machine Operator Relationship Specialty Start Date End Date Jovon Sifuentes MD [address] [place] [address] PCP - General 09/30/10 09/10/21 documented as of this encounter
--- OUTSIDE RECORDS SUMMARY | 2024-09-01 14:07 | XMS_ITS | Encounter Summary ---
Author Organization [facility] [place] [address] Care Team Providers Care Biofuels Operations Manager Name Role Phone Jovon Sifuentes MD Primary Care Provider Encounter Details Date Type Department Care Team (Late st Contact Info) Description 01/25/2018 12:00 PM EDT Office Visit Hematology [place] [address] Geovanna Deleon MD [facility] [address] [place] [address] Recurrent pulmonary embolism Social History Tobacco Use [...] Deleon MD - 01/25/2018 12:00 PM EDT [facility] Hemophilia [facility] Thrombosis Center [place], [place] [address] THROMBOSIS FOLLOW-UP DATE OF VISIT 01/25/2018 Patient [...] history of stroke. 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 I just want to make surethat he [...] - I will contact Dr. Lr, his work car operator and make sure that he agrees that [...] will call him after discussing with his work car operator. Geovanna Deleon MD Addendum 02/02/2018 I have [...] 10:20 AM EST Office [place] [address] Sriram Contreras MD [facility] [place] [address] 10/31/2024 1:30 PM EST Office Visit Hematology/Oncology at [address] [address] Dmitry Bhatti MD [facility] [place] [address] Ellen Mcrae APRN [facility] [place] [address] 10/31/2024 2:00 PM EST Infusion Hematology Oncology at [address] [address] documented as of this encounter Visit Diagnoses Diagnosis Recurrent pulmonary embolism Other pulmonary embolism and infarction documented in this encounter Care Teams Biofuels Operations Manager Relationship Specialty Start Date End Date Jovon Sifuentes MD [address] [place] [address] PCP - General 09/30/10 09/10/21 documented as of this encounter
--- OUTSIDE RECORDS SUMMARY | 2024-09-01 14:07 | XMS_ITS | Encounter Summary ---
[place] [address] Care Team Providers Care Learning Disabilities Specialist Name Role Phone Jovon Sifuentes MD Primary Care Provider Reason for Referral * Diagnostic Test (Routine) - Closed Specialty Diagnoses / Procedures Referred By Huam valladares Referred To Contact Radiology Diagnoses Cancer of base of tongue Procedures MRI Soft Tissue Neck wwo Contrast MRI Soft Tissue Neck w Contrast Sriram Contreras MD [facility] [place] [address] [place] [address] Referral ID Status Reason Start Date Expiration Date V isits Requested Visits Authorized [id number] Closed Specialty Service Requested 11/05/2017 01/03/2018 1 1 Reason for Visit * Reason Comments Follow-up 6 WK FU. Cancer of b ase of tongue right. [place] Patient states that he has 2 lumps on his abdomen from the Lovenox shots. Encounter Details Date Type Department Care Team (Late Contact Info) Description 09/16/2017 1:00 PM EST Office Visit [place] [phone] Sriram Contreras MD [facility] [place] [address] Cancer of base of tongue [...] Contreras MD - 09/16/2017 1:00 PM EST [facility] [...] CPAP G47.33, Z99.89 ??? Adult BMI 30+ [id number] ??? Head and neck cancer C76.0 ??? [...] the TelePack Unit and uploaded to the PaySimple Yarn Carrier. Findings Nasal cavity Normal Nasopharynx normal Oropharynx [...] 10:20 AM EST Office Visit [place] [address] Sriram Contreras MD [facility] [place] [address] 10/31/2024 1:30 PM EST Office Visit Hematology/Oncology at [address] [phone] Dmitry Bhatti MD [facility] DR HEMATOLOGY [place] [address] Ellen Mcrae APRN [facility] [place] [address] 10/31/2024 2:00 PM EST Infusion Hematology Oncology at [address] [phone] documented as of this encounter Results * [...] tongue documented in this encounter Care Teams Learning Disabilities Specialist Relationship Specialty Start Date End Date Jovon Sifuentes MD [address] [place] [address] PCP - General 09/30/10 09/10/21 documented as of this encounter
--- OUTSIDE RECORDS SUMMARY | 2024-09-01 14:07 | XMS_ITS | Encounter Summary ---
[place] [address] Care Team Providers Care Central Service Technician Name Role Phone Jovon Sifuentes MD Primary Care Provider [phone] Reason for Visit * Reason Comments Follow-up Encounter Details Date Type Department Care Team (Late st Contact Info) Description 11/11/2017 3:00 PM EST Office Visit [place] [address] Sriram Contreras MD [facility] [place] [address] Larynx cancer Social History Tobacco Use Types [...] Interiano MD - 11/11/2017 3:00 PM EST [facility]K TUMOR CLINIC FOLLOW [...] CPAP G47.33, Z99.89 ??? Adult BMI 30+ [id number] ??? Head and neck cancer C76.0 ??? [...] the TelePack Unit and uploaded to the Vital Access Millstone Cleaner. Findings Nasal cavity Normal Nasopharynx normal Oropharynx [...] 10:20 AM EST Office Visit [place] [address] Sriram Contreras MD [facility] [place] [address] 10/31/2024 1:30 PM EST Office Visit Hematology/Oncology at [address] [address] Dmitry Bhatti MD [facility] DR [place] [address] Ellen Mcrae APRN [facility] [place] [address] 10/31/2024 2:00 PM EST Infusion Hematology Oncology at [address] [phone] documented as of this encounter Visit Diagnoses Diagnosis Larynx cancer Malignant neoplasm of larynx, unspecified site documented in this encounter Care Teams Central Service Technician Relationship Specialty Start Date End Date Jovon Sifuentes MD [address] [place] [address] PCP - General 09/30/10 09/10/21 documented as of this encounter
--- OUTSIDE RECORDS SUMMARY | 2024-09-01 14:07 | XMS_ITS | Encounter Summary ---
[place] [address] Care Team Providers Care Occupational Health Manager Name Role Phone Jovon Sifuentes MD Primary Care Provider [phone] Encounter Details Date Type Department Care Team (Late st Contact Info) Description 07/04/2018 Telephone [place] [address] [place] Social History Tobacco Use Types [...] 10:20 AM EST Office Visit [place] [phone] Sriram Contreras MD [facility] [place] [address] 10/31/2024 1:30 PM EST Office Visit Hematology/Oncology at [address] [phone] Dmitry Bhatti MD [facility] DR [place] [address] Ellen Mcrae APRN [facility] [place] [address] 10/31/2024 2:00 PM EST Infusion Hematology Oncology at [address] [phone] documented as of this encounter Visit Diagnoses Not on filedocumented in this encounter Care Teams Occupational Health Manager Relationship Specialty Start Date End Date Jovon Sifuentes MD [address] [place] [address] PCP - General 09/30/10 09/10/21 documented as of this encounter
--- OUTSIDE RECORDS SUMMARY | 2024-09-01 14:07 | XMS_ITS | Encounter Summary ---
Author [place] [address] Care Team Providers Care Painter Decorator Name Role Phone Jovon Sifuentes MD Primary Care Provider Encounter Details Date Type Department Care Team (Late st Contact Info) Description 08/19/2017 Telephone [place] [address] Vane Cardona Social History Tobacco Use Types [...] Cardona - 08/19/2017 10:37 AM EDT Sent SALES BRANCH MANAGER referral fax to Roc Patrick at [phone]. Left message with Roc Patrick's office to confirm the fax and to ask if they needed additional information documented in this encounter Plan of Treatment Upcoming Encounters Date Type Department Care Team (Late st Contact Info) Description 09/18/2024 10:20 AM EST Office Visit [place] [address] Sriram Contreras MD [facility] [place] [address] 10/31/2024 1:30 PM EST Office Visit Hematology/Oncology at [address] [phone] Dmitry Bhatti MD [facility] DR HEMATOLOGY [place] [address] Ellen Mcrae APRN [facility] [place] [address] 10/31/2024 2:00 PM EST Infusion Hematology Oncology at [address] [phone] documented as of this encounter Visit Diagnoses Not on filedocumented in this encounter Care Teams Painter Decorator Relationship Specialty Start Date End Date Jovon Sifuentes MD [address] [place] [address] PCP - General 09/30/10 09/10/21 documented as of this encounter
--- OUTSIDE RECORDS SUMMARY | 2024-09-01 14:07 | XMS_ITS | Encounter Summary ---
[place] [address] Care Team Providers Care Vice President Investor Relations Name Role Phone Jovon Sifuentes MD Primary Care Provider Encounter Details Date Type Department Care Team (Latest Contact Info) Description 08/03/2017 Multidisciplinary Ca re [place] [address] Zafar Madera MD [facility] [place] [address] Social History Tobacco Use Types Packs/Day Years [...] biopsy. Developed acute PE and transferred to [facility] for management. Staging PET-CT showed possible uptake [...] 10:20 AM EST Office [place] [address] Sriram Contreras MD [facility] [place] [address] 10/31/2024 1:30 PM EST Office Visit Hematology/Oncology at [address] [phone] Dmitry Bhatti MD [facility] DR HEMATOLOGY [place] [address] Ellen Mcrae APRN [facility] [place] [address] 10/31/2024 2:00 PM EST Infusion Hematology Oncology at [address] [phone] documented as of this encounter Visit Diagnoses Not on filedocumented in this encounter Care Teams Vice President Investor Relations Relationship Specialty Start Date End Date Jovon Sifuentes MD [address] [place] [address] PCP - General 09/30/10 09/10/21 documented as of this encounter
--- OUTSIDE RECORDS SUMMARY | 2024-09-01 14:07 | XMS_ITS | Encounter Summary ---
[place] [address] Care Team Providers Care Soft Work Cigar Machine Operator Name Role Phone Jovon Sifuentes MD Primary Care Provider [phone] Reason for Referral * Diagnostic Test (Routine) - Closed Specialty Diagnoses / Procedures Referred By Contac t Referred To Contact Radiology Diagnoses Cancer of base of tongue Procedures CT Chest w Contrast Sriram Contreras MD [facility] [place] [address] [facility] [place] [address] Referral ID Status Reason Start Date Expiration Date V isits Requested Visits Authorized [id number] Closed Specialty Service Requested 07/21/2018 09/18/2018 1 1 * Diagnostic Test (Routine) - Specialty Diagnoses / Procedures Referred By Contac t Referred To Contact Radiology Diagnoses Cancer of base of tongue Procedures CT Neck Soft Tissue w Contrast (Generic) Sriram Contreras MD [facility] [place] [address] [facility] [place] [address] Referral ID Status Reason Start Date Expiration Date Visits Requested Visits Authorized [id number] Specialty Service Requested 07/21/2018 09/18/2018 1 1 Reason for Visit * Diagnostic Test (Routine) - Closed Specialty Diagnoses / Procedures Referred By Huma valladares Referred To Contact Radiology Diagnoses Cancer of base of tongue Procedures CT Chest w Contrast Sriram Contreras MD [facility] [place] [address] [facility] [place] [address] Referral ID Status Reason Start Date Expiration Date V isits Requested Visits Authorized [id number] Closed Specialty Service Requested 07/21/2018 09/18/2018 1 1 Encounter Details Date Type Department Care Team (Latest Contact Info) Description 08/08/2018 11:19 AM EDT - 08/08/2018 11:59 PM EDT Hospital [place] [address] Sriram Contreras MD [facility] [place] [address] Cancer of base of tongue [...] 10:20 AM EST Office Visit [place] [address] Sriram Contreras MD [facility] [place] [address] 10/31/2024 1:30 PM EST Office Visit Hematology/Oncology at [address] [phone] Dmitry Bhatti MD [facility] [place] [address] Ellen Mcrae APRN [facility] [place] [place] [address] 10/31/2024 2:00 PM EST Infusion Hematology Oncology at [address] [phone] documented as of this encounter Procedures Procedure [...] mLs documented in this encounter Care Teams Soft Work Cigar Machine Operator Relationship Specialty Start Date End Date Jovon Sifuentes MD [address] [place] [address] PCP - General 09/30/10 09/10/21 documented as of this encounter
--- OUTSIDE RECORDS SUMMARY | 2024-09-01 14:07 | XMS_ITS | Encounter Summary ---
[place] [address] Care Team Providers Care Litigator Name Role Phone Jovon Sifuentes MD Primary Care Provider [phone] Encounter Details Date Type Department Care Team (Late st Contact Info) Description 07/05/2018 Telephone [place] [phone] [place] Lambert Social History Tobacco Use Types [...] 10:20 AM EST Office Visit [place] [phone] Sriram Contreras MD [facility] [place] [address] 10/31/2024 1:30 PM EST Office Visit Hematology/Oncology at [address] [phone] Dmitry Bhatti MD [facility] [place] [address] Ellen Mcrae APRN [facility] [place] [address] 10/31/2024 2:00 PM EST Infusion Hematology Oncology at [address] [phone] documented as of this encounter Visit Diagnoses Not on filedocumented in this encounter Care Teams Litigator Relationship Specialty Start Date End Date Jovon Sifuentes MD [address] [place] [address] PCP - General 09/30/10 09/10/21 documented as of this encounter
--- OUTSIDE RECORDS SUMMARY | 2024-09-01 14:07 | XMS_ITS | Encounter Summary ---
[place] [address] Care Team Providers Care Mop Worker Name Role Phone Jovon Sifuentes MD Primary Care Provider Encounter Details Date Type Department Care Team (Late Contact Info) Description 08/09/2018 Telephone [place] [address] Dina Alonzo RN Social History Tobacco Use [...] Office Visit [place] [address] Sriram Contreras MD [facility] [place] [address] 10/31/2024 1:30 PM EST Office Visit Hematology/Oncology at [address] [phone] Dmitry Bhatti MD [facility] [place] [address] Ellen Mcrae APRN [facility] [place] [address] 10/31/2024 2:00 PM EST Infusion Hematology Oncology at [address] [phone] documented as of this encounter Visit Diagnoses Not on filedocumented in this encounter Care Teams Mop Worker Relationship Specialty Start Date End Date Jovon Sifuentes MD [address] [place] [address] PCP - General 09/30/10 09/10/21 documented as of this encounter
--- OUTSIDE RECORDS SUMMARY | 2024-09-01 14:07 | XMS_ITS | Encounter Summary ---
Author Organization [facility] [address] Care Team Providers Care Anchor Operator Name Role Phone Jovon Sifuentes MD Primary Care Provider [phone] Reason for Visit * Reason Comments Follow-up Encounter Details Date Type Department Care Team (Late st Contact Info) Description 03/02/2019 10:20 AM EDT Office [place] [address] Sriram Contreras MD [facility] [place] [address] Cancer of base of tongue; Bilateral impacted [...] MD - 03/02/2019 10:20 AM EDT . [facility] [place] [facility] FOLLOW [...] CPAP G47.33, Z99.89 ??? Adult BMI 30+ [id number] PAST MEDICAL HISTORY Past Medical History: Diagnosis [...] larynx. The examination was recorded on the Doy[employer] Unit and uploaded to the [employer] Loom Changer. Findings Nasal cavity Right nasal cavity examination [...] 10:20 AM EST Office [place] [address] Sriram Contreras MD [facility] [place] [address] 10/31/2024 1:30 PM EST Office Visit Hematology/Oncology at [address] [phone] Dmitry Bhatti MD [facility] DR [place] [address] Ellen Mcrae APRN [facility] [place] [address] 10/31/2024 2:00 PM EST Infusion Hematology Oncology at [address] [phone] documented as of this encounter Visit Diagnoses Diagnosis 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
--- OUTSIDE RECORDS SUMMARY | 2024-09-01 14:07 | XMS_ITS | Encounter Summary ---
[place] [address] Care Team Providers Care Voice Professor Name Role Phone Jovon Sifuentes MD Primary Care Provider Encounter Details Date Type Department Care Team (Latest Contact Info) Description 03/02/2019 9:30 AM EDT Office Visit Audiology at [address] [phone] Marianela Vyas, DAVID [facility] [place] [address] Asymmetrical sensorineural hearing loss; Tinnitus, bilateral Social [...] for findings, impressions and recommendations. Sudarshan Orozco, [facility] Board [place] [address] documented in this encounter Plan of Treatment Upcoming Encounters Date Type Department Care Team (Late st Contact Info) Description 09/18/2024 10:20 AM EST Office [place] [address] Sriram Contreras MD [facility] [place] [address] 10/31/2024 1:30 PM EST Office Visit Hematology/Oncology at [address] [phone] Dmitry Bhatti MD [facility] [place] [address] Ellen Mcrae APRN [facility] [place] [place] [address] 10/31/2024 2:00 PM EST Infusion Hematology Oncology at [address] [phone] documented as of this encounter Procedures Procedure [...] environments (e.g. reducing background noise and speaking [id number]). - Use of hearing protection when exposed [...] listening environments (e.g.reducing background noise and speaking [id number]). - Use of hearing protection when exposed to potentially hazardous soundlevels. Unknown AUDIOLOGY [facility] documented in this encounter Visit Diagnoses Diagnosis Asymmetrical sensorineural hearing loss Sensorineural hearing loss, asymmetrical Tinnitus, bilateral Unspecified tinnitus documented in this encounter Care Teams Voice Professor Relationship Specialty Start Date End Date Jovon Sifuentes MD [address] [place] [address] PCP - General 09/30/10 09/10/21 documented as of this encounter
--- OUTSIDE RECORDS SUMMARY | 2024-09-01 14:07 | XMS_ITS | Encounter Summary ---
Author Organization [facility] [place] [address] Care Team Providers Care Typewriters Functional Tester Name Role Phone Jovon Sifuentes MD Primary Care Provider Encounter Details Date Type Department Care Team (Latest Contact Info) Description 11/29/2017 Multidisciplinary Ca re Committee [place] [phone] Zafar Madera MD [facility] [place] [address] Social History Tobacco Use Types Packs/Day Years [...] 10:20 AM EST Office [place] [phone] Sriram Contreras MD [facility] [place] [address] 10/31/2024 1:30 PM EST Office Visit Hematology/Oncology at [address] [phone] Dmitry Bhatti MD [facility] DR HEMATOLOGY [place] [address] Ellen Mcrae APRN [facility] [place] [address] 10/31/2024 2:00 PM EST Infusion Hematology Oncology at [address] [phone] documented as of this encounter Visit Diagnoses Not on filedocumented in this encounter Care Teams Typewriters Functional Tester Relationship Specialty Start Date End Date Jovon Sifuentes MD [address] [place] [address] PCP - General 09/30/10 09/10/21 documented as of this encounter
--- OUTSIDE RECORDS SUMMARY | 2024-09-01 14:07 | XMS_ITS | Encounter Summary ---
Author Organization [facility] [place] [address] Care Team Providers Care Tank Driver Name Role Phone Jovon Sifuentes MD Primary Care Provider [phone] Encounter Details Date Type Department Care Team (Late st Contact Info) Description 08/30/2017 1:30 PM EDT Office Visit [place] [address] Geovanna Deleon MD [facility] DR HEMATOLOGY [place] [address] Recurrent pulmonary embolism Social History Tobacco Use [...] Deleon MD - 08/30/2017 1:30 PM EDT [facility] [place] [address] THROMBOSIS FOLLOW-UP DATE OF VISIT 08/30/2017 Patient [...] 3 years ) Alcohol 2-3 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/week 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[employer] Fevers/chills/sweats No Recent [...] 10:20 AM EST Office [place] [address] Sriram Contreras MD [facility] [place] [address] 10/31/2024 1:30 PM EST Office Visit Hematology/Oncology at [address] [phone] Dmitry Bhatti MD [facility] [place] [address] Ellen Mcrae APRN [facility] [place] [address] 10/31/2024 2:00 PM EST Infusion Hematology Oncology at [address] [phone] documented as of this encounter Visit Diagnoses Diagnosis Recurrent pulmonary embolism Other pulmonary embolism and infarction documented in this encounter Care Teams Tank Driver Relationship Specialty Start Date End Date Jovon Sifuentes MD [address] [place] [address] PCP - General 09/30/10 09/10/21 documented as of this encounter
--- OUTSIDE RECORDS SUMMARY | 2024-09-01 14:07 | XMS_ITS | Encounter Summary ---
Author Organization [facility] [place] [address] Care Team Providers Care Milanese Knitting Machine Operator Name Role Phone Jovon Sifuentes MD Primary Care Provider [phone] Reason for Visit * Reason Comments Follow-up Patient feels he nee ds to clear his throat a lot due to post nasal drip. Swallowing continues to improve. Encounter Details Date Type Department Care Team (Late st Contact Info) Description 08/08/2018 1:00 PM EDT Office [place] [address] Sriram Contreras MD [facility] [place] [address] Cancer of base of tongue Social History [...] MD - 08/08/2018 1:00 PM EDT . [facility] [place] HEAD AND NECK [...] CPAP G47.33, Z99.89 ??? Adult BMI 30+ [id number] PAST MEDICAL HISTORY Past Medical History: Diagnosis [...] the TelePack Unit and uploaded to the [employer] Fusion Warp Trucker. 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
--- OUTSIDE RECORDS SUMMARY | 2024-09-01 14:07 | XMS_ITS | Encounter Summary ---
Author Organization [facility] [place] [address] Care Team Providers Care Drugless Physician Name Role Phone Jovon Sifuentes MD Primary Care Provider [phone] Reason for Visit * Reason Comments Follow-up i had throat cancer and I have to come in for a 3 month check up Encounter Details Date Type Department Care Team (Late st Contact Info) Description 12/08/2018 9:20 AM EST Office [place] [address] Sriram Contreras MD [facility] [place] [address] Cancer of base of tongue; Allergic rhinitis, [...] MD - 12/08/2018 9:20 AM EST . [facility] [place]OLOGY HEAD AND [...] CPAP G47.33, Z99.89 ??? Adult BMI 30+ [id number] PAST MEDICAL HISTORY Past Medical History: Diagnosis [...] the TelePack Unit and uploaded to the [employer] Human Resource Officer. Findings Nasal cavity Right nasal cavity examination [...] 10:20 AM EST Office [place] [address] Sriram Contreras MD [facility] [place] [address] 10/31/2024 1:30 PM EST Office Visit Hematology/Oncology at [address] [phone] Dmitry Bhatti MD [facility] DR [place]AT[place] [address] Ellen Mcrae APRN [facility] [place] [address] 10/31/2024 2:00 PM EST Infusion Hematology Oncology at [address] [phone] documented as of this encounter Visit Diagnoses Diagnosis 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
--- OUTSIDE RECORDS SUMMARY | 2024-09-01 14:07 | XMS_ITS | Encounter Summary ---
[place] [address] Care Team Providers Care Business And Marketing Teacher Name Role Phone Jovon Sifuentes MD Primary Care Provider [phone] Encounter Details Date Type Department Care Team (Late st Contact Info) Description 10/03/2018 Telephone [place] [phone] Leora [place] Social History Tobacco Use Types [...] if they have received the letter from [facility] regarding they needing additional info about the inpatient services he received during 07/13/17 surgery and also to call Marina on [phone] if they have billing questions. documented in this encounter Plan of Treatment Upcoming Encounters Date Type Department Care Team (Late st Contact Info) Description 09/18/2024 10:20 AM EST Office [place] [address] Sriram Contreras MD [facility] [place] [address] 10/31/2024 1:30 PM EST Office Visit Hematology/Oncology at [address] [phone] Dmitry Bhatti MD [facility] [place] [address] Ellen Mcrae APRN [facility] [place] [address] 10/31/2024 2:00 PM EST Infusion Hematology Oncology at [address] [phone] documented as of this encounter Visit Diagnoses Not on filedocumented in this encounter Care Teams Business And Marketing Teacher Relationship Specialty Start Date End Date Jovon Sifuentes MD [address] [place] [address] PCP - General 09/30/10 09/10/21 documented as of this encounter
--- OUTSIDE RECORDS SUMMARY | 2024-09-01 14:07 | XMS_ITS | Encounter Summary ---
Author Organization [facility] [place] [address] Care Team Providers Care Tire Recapper Name Role Phone Jovon Sifuentes MD Primary Care Provider [phone] Reason for Visit * Reason Comments Follow-up contiues with some n sheryl and throat swelling, continues to clear his throat alot, using Mucinex with some effect. tried claritin yesterday it worked a little better. Encounter Details Date Type Department Care Team (Late st Contact Info) Description 04/14/2018 10:15 AM EDT Office [place] [phone] Sriram Contreras MD [facility] [place] [address] Cancer of base of tongue; Allergic rhinitis, [...] MD - 04/14/2018 10:15 AM EDT . [facility] [...] CPAP G47.33, Z99.89 ??? Adult BMI 30+ [id number] PAST MEDICAL HISTORY Past Medical History: Diagnosis [...] the TelePack Unit and uploaded to the [employer] Dock Supervisor. 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
--- OUTSIDE RECORDS SUMMARY | 2024-09-01 14:07 | XMS_ITS | Encounter Summary ---
[place] [address] Care Team Providers Care Soap Maker Name Role Phone Jovon Sifuentes MD Primary Care Provider Encounter Details Date Type Department Care Team (Late Contact Info) Description 07/29/2017 Telephone [place] [phone] Vane Cardona Social History Tobacco Use Types [...] 10:20 AM EST Office [place] [phone] Sriram Contreras MD [facility] [place] [address] 10/31/2024 1:30 PM EST Office Visit Hematology/Oncology at [address] [phone] Dmitry Bhatti MD [facility] [address] [place] [address] Ellen Mcrae APRN [facility] [place] [address] 10/31/2024 2:00 PM EST Infusion Hematology Oncology at [address] [phone] documented as of this encounter Visit Diagnoses Not on filedocumented in this encounter Care Teams Soap Maker Relationship Specialty Start Date End Date Jovon Sifuentes MD [address] [place] [address] PCP - General 09/30/10 09/10/21 documented as of this encounter
--- OUTSIDE RECORDS SUMMARY | 2024-09-01 14:07 | XMS_ITS | Encounter Summary ---
[place] [address] Care Team Providers Care Software Designer Name Role Phone Jovon Sifuentes MD Primary Care Provider Reason for Referral * Diagnostic Test (Routine) - Closed Specialty Diagnoses / Procedures Referred By Huma t Referred To Contact Radiology Diagnoses Cancer of base of tongue Procedures MRI Soft Tissue Neck wwo Contrast MRI Soft Tissue Neck w Contrast Sriram Contreras MD [facility] [place] [address] [place] [address] Referral ID Status Reason Start Date Expiration Date V isits Requested Visits Authorized [id number] Closed Specialty Service Requested 11/05/2017 01/03/2018 1 1 Reason for Visit * Diagnostic Test (Routine) - Closed Specialty Diagnoses / Procedures Referred By Huma valladares Referred To Contact Radiology Diagnoses Cancer of base of tongue Procedures MRI Soft Tissue Neck wwo Contrast MRI Soft Tissue Neck w Contrast Sriram Contreras MD [facility] [place] [address] [place] [address] Referral ID Status Reason Start Date Expiration Date V isits Requested Visits Authorized [id number] Closed Specialty Service Requested 11/05/2017 01/03/2018 1 1 Encounter Details Date Type Department Care Team (Latest Contact Info) Description 11/11/2017 12:23 PM EST - 11/11/2017 11:59 PM EST Hospital Encounter MRI at [facility] [place] [address] Sriram Contreras MD [facility] [place] [address] Cancer of base of tongue Discharge Disposition: [...] 10:20 AM EST Office [place] [address] Sriram Contreras MD [facility] [place] [address] 10/31/2024 1:30 PM EST Office Visit Hematology/Oncology at [address] [phone] Dmitry Bhatti MD [facility] DR [place] [address] Ellen Mcrae APRN [facility] [place] [address] 10/31/2024 2:00 PM EST Infusion Hematology Oncology at [address] [phone] documented as of this encounter Procedures Procedure [...] mLs documented in this encounter Care Teams Software Designer Relationship Specialty Start Date End Date Jovon Sifuentes MD [address] [place] [address] PCP - General 09/30/10 09/10/21 documented as of this encounter
--- OUTSIDE RECORDS SUMMARY | 2024-09-01 14:07 | XMS_ITS | Encounter Summary ---
Author Organization Formerly [facility] [place] [address] Care Team Providers Care Retort Kiln Burner Name Role Phone Jovon Sifuentes MD Primary Care Provider + [phone] Reason for Referral * Speech Therapy (Routine) - Specialty Diagnoses / Procedures Referred By Huma valladares Referred To Contact Speech Pathology Diagnoses Dysphagia, unspecified type Hilton Cheney PA [facility] [address] Roc Patrick, DIRECTOR VOICE [address] [place] [id number] Referral ID Status Reason Start Date Expiration Date V isits Requested Visits Authorized [id number] Evaluate and Treat 08/05/2017 02/01/2018 12 12 Reason for Visit * Reason Comments Other hospital check 07-29 Encounter Details Date Type Department Care Team (Late st Contact Info) Description 08/05/2017 3:30 PM EDT Office Visit [place] [address] Hilton Cheney PA [facility] [place] [address] Dysphagia, unspecified type; Cancer of base of [...] gargles 3-4 times per day. Referral to DIRECTOR VOICE in [facility]. Nothing in the ears until next visit. Return to clinic in about 6 weeks. documented in this encounter Progress Notes * Hilton Cheney PA - 08/05/2017 3:30 PM EDT [facility] [place] [facility] Follow up [...] - Primary * Selvin Kaye MD - Resident-Field Marketing Representative * Hilton Cheney PA - Physician Applicator Sprayer Preoperative diagnosis: Right tongue base cancer Postoperative [...] go back on Eliquis. Needs referral to DIRECTOR VOICE in [facility]. Head and neck symptom survey >Symptom ?? [...] Date ??? ACHILLES TENDON SURGERY Right 1996 [facility] ??? KNEE ARTHROSCOPY christelle. [facility] ??? PRO BIOPSY OROPHARYNX N/A 05/24/2017 BIOPSY, OROPHARYNX (WRVU 1.44) performed by Zafar Madera MD at [facility] OR ??? PRO LARYNGOSCOPY, DIRCT, OP SCOPE, BIOPSY N/A 05/24/2017 LARYNGOSCOPY, MICROSCOPE, WITH BIOPSY (WRVU 3.55) performed by Zafar Madera MD at [facility] OR ??? PRO LARYNGOSCOPY, DIRECT, DX, OP MICROSCOP N/A 07/16/2017 LARYNGOSCOPY, WITH MICROSCOPE (WRVU 2.57) performed by Sriram Contreras MD at [facility] OR ??? PRO PART EXC TONGUE, UNILAT RAD NECK Right 07/13/2017 @GLOSSECTOMY, PARTIAL,WITH UNILATERAL RADICAL NECK DISSECTION (WRVU 30.14) performed by Sriram Contreras MD at [facility] ??? PRO PARTIAL REMOVAL OF PHARYNX N/A 07/13/2017 PHARYNGECTOMY, LIMITED (WRVU 19.13) performed by Sriram Contreras MD at [facility] ??? PRO UNLISTED PROCEDURE LARYNX N/A 07/13/2017 LARYNGOSCOPY, MICRO, LASER EXCISION (WRVU 12.14) performed by Sriram Contreras MD at [facility] ??? QUADRACEPS TENDON REPAIR Right 04/2016 [facility] ??? TONSILLECTOMY FAMILY HISTORY No family [...] and will refer per his request for DIRECTOR VOICE visits with Roc Patrick in [facility]. Discussed trying salt- water gargles to [...] gargles 3-4 times per day. Referral to DIRECTOR VOICE in [facility]. Nothing in the ears until next visit. Return to clinic in about 6 weeks. Hilton Cheney PA-C 08/05/2017 [place], [place] [phone] Office documented in this encounter Plan of Treatment Upcoming Encounters Date Type Department Care Team (Late st Contact Info) Description 09/18/2024 10:20 AM EST Office Visit [place] [address] Sriram Contreras MD [facility] [place] [place] [address] 10/31/2024 1:30 PM EST Office Visit Hematology/Oncology at [address] [phone] Dmitry Bhatti MD [facility] [place] [address] Ellen Mcrae APRN [facility] [place] [address] 10/31/2024 2:00 PM EST Infusion Hematology Oncology at [address] [phone] Scheduled Referrals Name Type Priority Associated Diagnoses Orde r Schedule Referral to Speech Therapy Outpatient Referral Routine Dysphagia, unspecified type Ordered: 08/05/2017 documented as of this encounter Visit Diagnoses Diagnosis Dysphagia, unspecified type 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
--- OUTSIDE RECORDS SUMMARY | 2024-09-01 14:07 | XMS_ITS | Encounter Summary ---
[place] [address] Care Team Providers Care Sausage Machine Operator Name Role Phone Jovon Sifuentes MD Primary Care Provider Encounter Details Date Type Department Care Team (Late st Contact Info) Description 12/01/2017 Telephone [place] [phone] Dina Alonzo RN Social History Tobacco Use [...] 10:20 AM EST Office Visit [place] [address] Sriram Contreras MD [facility] [place] [address] 10/31/2024 1:30 PM EST Office Visit Hematology/Oncology at [address] [phone] Dmitry Bhatti MD [facility] H[place]ATOLOGY [place] [address] Ellen Mcrae APRN [facility] [place] [address] 10/31/2024 2:00 PM EST Infusion Hematology Oncology at [address] [phone] documented as of this encounter Visit Diagnoses Not on filedocumented in this encounter Care Teams Sausage Machine Operator Relationship Specialty Start Date End Date Jovon Sifuentes MD [address] [place] [address] PCP - General 09/30/10 09/10/21 documented as of this encounter
--- NOTE | 2024-09-01 14:08 | W.ED.GENAD ---
Discharge Plan Disposition Patient Disposition: Home Condition: Stable Discharge Details Clinical Impression: Otitis externa of right ear, Facial swelling, Itching Primary Care Provider: Paulino Finley ED Provider: Russ Garza Home Meds and New Rx's Prescriptions: New prednisone 20 mg tablet See Rx Instructions .ROUTE .COMPLEX Qty: 24 0RF Rx Instructions: Take 60 mg daily for 4 days, then 40 mg daily for 4 days, then 20 mg daily for 4 days. Continued tadalafil [Cialis] 10 mg tablet 10 mg PO DAILY PRN Rx Instructions: administer approximately 30min before sexual activity; do not use more than 1 dose per 24hrs acetaminophen [Tylenol] 325 MG tablet 650 mg PO Q6H PRN tamsulosin [Flomax] 0.4 MG capsule 0.4 mg PO DAILY diphenhydramine HCl [Benadryl Allergy] 25 mg tablet 25 mg PO QHS PRN Takrvypo-Tpjqgf-SXI with vit D 1 EACH tablet 1 tab PO DAILY Eliquis 5 MG tablet 5 mg PO BID 30 Days 0RF Rx Instructions: take 10mg twice daily for 7 days then 5mg twice daily ciprofloxacin HCl 750 mg tablet 750 mg PO BID 7 Days Qty: 14 0RF amoxicillin-pot clavulanate 875-125 mg tablet 1 tab PO BID 7 Days Qty: 14 0RF Discharge Instructions Additional Instructions: Continue the prescription medications that you are taking. Follow-up with either ENT or primary care provider You can take daily Zyrtec or Claritin and also use Benadryl as needed for itching, follow dosing instructions on packaging. If you feel more ill, have severe pain or difficulty breathing or high fevers return to the emergency department for reevaluation. HPI General Mode of arrival: ambulatory. Date/Time Provider Initiated Documentation: 09/01/24 13:54. Limitations to Documentation: no limitations. Information obtained by: patient. History of Present Illness 73 year old M presents to the emergency department with the chief complaint of itching of arms and legs, described as mild, Patient started experiencing this day(s) (4) and it has been intermittent. other things that improve symptom(s), (benadryl) No exacerbating factors reported . Patient notes denies chest pain, fever/chills and shortness of breath. Related Data Home Medications ?Medication ?Instructions ?Recorded ?Confirmed acetaminophen 325 mg tablet 650 mg PO Q6H PRN 04/08/15 09/01/24 (Tylenol) tamsulosin 0.4 mg capsule (Flomax) 0.4 mg PO DAILY 04/08/15 09/01/24 apixaban 5 mg tablet (Eliquis) 5 mg PO BID 30 days 03/29/17 09/01/24 glucosamine 750 ty-nnljbp-vcw 2-C 1 tab PO DAILY 03/29/17 09/01/24 30 mg-D3 1,000 unit-debora 1 mg tablet (Iczheqiwncp-Taleymrwoaj-DPT + vitD) tadalafil 10 mg tablet (Cialis) 10 mg PO DAILY PRN 05/20/20 09/01/24 diphenhydramine HCl 25 mg tablet 25 mg PO QHS PRN 05/10/23 09/01/24 (Benadryl Allergy) amoxicillin 875 mg-potassium 1 tab PO BID 7 days #14 tabs 08/28/24 09/01/24 clavulanate 125 mg tablet ciprofloxacin HCl 750 mg tablet 750 mg PO BID 7 days #14 tabs 08/28/24 09/01/24 prednisone 20 mg tablet See Rx Instructions .Route 09/01/24 .COMPLEX #24 tabs Previous Rx's ?Medication ?Instructions ?Recorded apixaban 5 mg tablet (Eliquis) 5 mg PO BID 30 days 03/29/17 amoxicillin 875 mg-potassium 1 tab PO BID 7 days #14 tabs 08/28/24 clavulanate 125 mg tablet ciprofloxacin HCl 750 mg tablet 750 mg PO BID 7 days #14 tabs 08/28/24 prednisone 20 mg tablet See Rx Instructions .Route 09/01/24 .COMPLEX #24 tabs Allergies Allergy/AdvReac Type Severity Reaction Status Date / Time amoxicillin Allergy Intermediate Hives Verified 09/01/24 13:56 degarelix (From Firmagon) AdvReac Mild Unknown Verified 09/01/24 13:56 clindamycin AdvReac Other (See Verified 09/01/24 13:56 Comment) ibuprofen AdvReac upset Verified 09/01/24 13:56 stomach General Stated Complaint: Allergic JOSE: 4 Review of Systems All systems reviewed & are unremarkable except as noted in HPI and below Constitutional Constitutional: Denies chills, Denies fever(s) and Denies weakness Eyes Eyes: Denies loss of vision ENT Ears, Nose, Mouth, and Throat: Reports otalgia Cardiovascular Cardiovascular: Denies chest pain and Denies dyspnea Respiratory Respiratory: Denies cough and Denies dyspnea Gastrointestinal Gastrointestinal: Denies abdominal pain, Denies nausea and Denies vomiting Neurologic Neurologic: Denies loss of vision and Denies weakness Allergic/Immunologic Allergic/Immunologic: Denies urticaria Course Vital Signs Vital signs: Vital Signs Temperature 36.6 C 09/01/24 13:53 Pulse 72 09/01/24 13:53 Respiratory Rate 12 09/01/24 13:53 Blood Pressure 128/74 09/01/24 13:53 Pulse Oximetry 97 09/01/24 13:53 Temperature 36.6 C 09/01/24 13:53 Temperature Source Skin 09/01/24 13:53 Pulse 72 09/01/24 13:53 Respiratory Rate 12 09/01/24 13:53 Blood Pressure 128/74 09/01/24 13:53 Blood Pressure Position Sitting 09/01/24 13:53 Pulse Oximetry 97 09/01/24 13:53 Oxygen Delivery Method Room Air 09/01/24 13:53 Oxygen Flow Rate 0 09/01/24 13:53 Pain Level 0 09/01/24 13:53 Medical Decision Making 73-year-old male who is undergoing treatment for otitis externa with oral ciprofloxacin and hydrocortisone eardrops comes in with continued intermittent itching of his arms without visible rash and also facial swelling which he says is improving. He denies any respiratory or GI symptoms, no severe pain, says his ear and face are starting to improve with antibiotics. He has mild swelling of the right side of his face with mild erythema, his right external auditory canal is swollen. There is no drainage or blood coming from the ear. He has no rash on his body or arms. I suspect pruritus which could be due to his eczema that has been diagnosed with. He has been taking Benadryl with some relief. I do feel it is reasonable to try oral prednisone, he will follow-up with ENT or his primary care provider and return precautions given. He has no findings on exam or history to suggest entities such as anaphylaxis or sepsis do not feel any labs or imaging indicated. Differential Diagnosis Differential Diagnosis: Pruritus,, facial cellulitis, eczema Quality:SDOH Health Related Social Needs: No Data to Display PFSH All Active Problems (Updated 09/01/24 @ 14:08 by Russ Garza MD) Itching (Acute) Facial swelling (Acute) Chronic eczematoid otitis externa (Acute) Facial cellulitis (Acute) Exostosis of both external ear canals (Acute) Acute otitis externa of right ear (Acute) Otitis externa of right ear (Acute) Gross hematuria (Acute) Prostate cancer (Chronic) Hearing loss (Acute) Rupture of right proximal biceps tendon (Acute) Arthritis of knee, left (Acute) Traumatic tear of right rotator cuff (Acute 05/18/20) Bursitis of right shoulder (Acute) Medical History Elevated PSA COX (dyspnea on exertion) Prostate nodule Quadriceps tendon rupture Tendonitis of long head of biceps brachii of right shoulder Achilles rupture, right Achilles rupture, left Erectile dysfunction Cataract right Hypothyroidism Per [facility] [place] [place] record Arthritis KORI (obstructive sleep apnea) BPH (benign prostatic hyperplasia) Hx pulmonary embolism Dysphagia Per pt. states as a result of his TLM and open neck resention he doesn't swallow like he used to Tongue cancer Hx: UTI (urinary tract infection) Torn rotator cuff Atrial fibrillation F/U with PCP Billy Sifuentes Surgical History History of tonsillectomy and adenoidectomy History of arthroscopic knee surgery Status post neck dissection TLM and open resection with neck dissection July 2017 Social History Smoking/Tobacco Use Status: Former Tobacco Use Quit Date: 11/08/96 Smoking risk assessment performed?: Yes Alcohol Intake: current Alcohol Intake frequency: a few times a week Alcohol type: hard liquor Drug use: Never Substance use type: does not use Current gender identity: male Do you feel safe at home: Yes Do you feel safe in your relationship?: Yes
--- OUTSIDE RECORDS SUMMARY | 2024-09-01 14:09 | XMS_ITS | Encounter Summary ---
Author Organization [facility] Address [facility] [place] [address] Care Team Providers Care Results Engineer Name Role Phone Jovon Sifuentes MD Primary Care Provider [phone] Reason for Visit * Auth/Cert Specialty Diagnoses [...] Expiration Date Visits Re quested Visits Authorized [id number] 1 1 Encounter Details Date Type Department Care Team (Latest Contact Info) Description 07/13/2017 6:04 AM EDT - 07/29/2017 1:35 PM EDT Hospital Encounter [address] [place] [phone] Sriram Contreras MD [facility] [place] [address] Persistent atrial fibrillation; QT prolongation; Other pulmonary embolism without acute cor pulmonale Discharge Disposition: Retirement Facility Social History Tobacco Use Types Packs/Day [...] staging exam TECHNIQUE: Following IV injection of 65-upruxl-4-deoxyglucose (FDG) a standard uptake of approximately 60 [...] Thank you for referring this patient to [facility]. I have personally reviewed the [...] -You can reach the ENT clinic at [phone] for appointment questions. -The ENT triage nurse is available at [phone] -For urgent issues during evenings and weekends the ENT resident prevocational/rehabilitation counselor can be reached through [facility] broke beater machine operator at [phone] Follow Up: You will need to follow [...] Geovanna Deleon MD Hematology and Oncology at [place] [phone] General Instructions None __ Primary Care Doctor: Jovon Sifuentes MD [phone] Signed: Celso Mejía MD 07/29/2017 documented in [...] -You can reach the ENT clinic at [phone] for appointment questions. -The ENT triage nurse is available at [phone] -For urgent issues during evenings and weekends the ENT resident prevocational/rehabilitation counselor can be reached through [facility] broke beater machine operator at [phone] Follow Up: You will need to follow [...] Geovanna Deleon MD Hematology and Oncology at [place] [phone] documented in this encounter Medications at Time [...] att. providers found Jose Laws discharged to [facility] by private car with Spouse. All belongings sent with patient. DONNA removed, incision healing well, no significant drainage, no dehiscence, no significant erythema, skin free from pressure ulcers. Discharge instructions given to . Report called to Vidhi at [facility] @ 1340. * Alexus Soler RN - 07/29/2017 11:38 AM EDT Patient accepts bed at [facility]. Spoke with Patient and in regards to transportation. will provide transportation to [facility]. Adrienne Soler RN Care Management * Lexy Scott - 07/29/2017 10:57 AM EDT Office of Care Management/Manager Package Patient Name: Jose Laws : 1950 Patient has been offered a Retirement Facility bed at [facility]. The patient will be transported by private transportation. No MD to MD report necessary Please call Nursing Report to , ask for Vidhi. Info to accompany patient: Narcotic Prescriptions Copies of Medication Administration Records and IV sheets for past 10 days. Plan: Manager Package will be available to the patient and Commissioning Manager-RN and/or Social Workerfor further assistance. Patient will be discharged to: [facility] [address] [place] [address] Lexy Scott, Manager Package * Luana Henry RN - 07/29/2017 7:00 AM EDT Patient arrived via bed to rm 514, oob sitting in chair. Aox4, calling . Denies pain. Plan for discharge today pending bed. 1 assist to bathroom. Voids with out difficulty. [place] to floor and call srinivasan system. Would like to take a shower and have his CPAP cleaned. Will report to oncoming RN/CONCEPCION. * Kayley Chris RCP - 07/29/2017 4:40 AM EDT Patient was compliant with home CPAP usage tonight. * Anay Diallo RN - 07/28/2017 3:40 PM EDT Commissioning Manager Follow Up Note Patient plan of care discussed in multidisciplinary rounds. Met with patient and to assess continuing care and discharge needs. Continues to require hospitalization for Head and neck cancer. Discharge plan to snf when medically ready. Commissioning Manager to follow with team and family to assist with discharge needs when patient ready for discharge. Anay Diallo RN Case Management for [facility] pgr [phone] * Celso Mejía MD [...] Mejía MD, PGY1 07/28/17 7:05 AM Pager: [phone] * Anay Diallo RN - 07/27/2017 2:44 PM EDT Based on discussions with the multi-disciplinary healthcare team, the patient would benefit from skilled level of care at discharge. ?? I have met with the patient/livestock sales representative to discuss discharge planning needs. I have provided the [facility], Office of Care Management letter from the Local Driver pertaining to rehab referrals. I have also provided a letter describing our affiliations within the [facility] and educated them about their right to choose where referrals are placed. ?? I reviewed the different levels of rehab including SNF, swing, acute and LTAC with the patient/livestock sales representative. ?? The patient/livestock sales representative has been provided a list of facilities within their preferred geographic area. ?? I have requested that the patient/livestock sales representative provide at least three choices for referral. ?? The patient/livestock sales representative have requested referrals to: 1. [facility] ?? PHONE: [phone] FAX: [phone].. 2. [facility] [address] [place] [address] ?? 3. [facility] (Swing) [address] [place] [id number] ? Expected date of discharge: TBD Note routed to Manager Package who will communicate referrals to facilities and [...] Mejía MD, PGY1 07/27/17 7:01 AM Pager: [phone] * Collette Schultz - 07/26/2017 8:21 PM EDT Zach Encounter Note Patient Name: Jose Laws : [id number] MR#: [id number] Admit Date: 07/13/2017 6:04 AM Hospital Day 13 days Narrative: Attempted return visit - pt sleeping. Time in Direct Care: 0 min. Collette Schultz 07/26/2017 * Collette Schultz - 07/26/2017 3:00 PM EDT Tar Man Encounter Note Patient Name: Jose Laws : [id number] MR#: [id number] Admit Date: 07/13/2017 6:04 AM Hospital Day 13 days Narrative: Cement Despatch Operator visit per Consult Order Assessment: Pt [...] Diallo RN - 07/26/2017 2:30 PM EDT Commissioning Manager Follow Up Note Patient plan of care discussed in multidisciplinary rounds. Met with patient to assess continuing care and discharge needs. Continues to require hospitalization for Head and neck cancer. Discharge plan uncertain at this time. Commissioning Manager to follow with team and family to assist with discharge needs when patient ready for discharge. Anay Diallo RN Case Management for [facility] pgr [phone] * Briana Goel RN - 07/26/2017 2:29 PM EDT [facility] Interventional Radiology ? Interventional Radiology Nursing [...] patient's provider, ENT Service Dr. Jackie Mejía #[phone] , regarding above. Paged, callback # provided [...] Overview: March 2017: noted in ED in [facility]. Previously noted to be paroxysmal. [...] lb 2.5 oz). Admit Wt: 133.36 kg Sodus body weight: 90.4 kg Type of access: [...] vitamins and minerals. Assessment: Estimated Nutrition Needs: 7409-4966 calories (20-25 kcal/kg IBW) 135-160 grams protein (1.5-2.0 g/kg IBW) Patient is out of the ICU and out on the floor. Tube feedings need adjustment as pt is no longer onpropofol. Appears tube feedings are still medically indicated given pt is s/p swallow eval and AUTOMATION AND CONTROLS SUPERVISOR recommends continuation of dobhoff TF for now. [...] Mejía MD, PGY1 07/26/17 9:01 AM Pager: [phone] * Calista Peralta RT - 07/26/2017 12:27 [...] 7.44 7.41 7.42 PO2ART 67* 60* 78* QIX5GNA 39 37 39 BEART 1.2 -2.0 0.3 [...] 7.44 7.41 7.42 PO2ART 67* 60* 78* DGI0IXO 39 37 39 BEART 1.2 -2.0 0.3 [...] Samm Payne MD, FAAP Pediatric Otolaryngology [facility] ([facility]) [facility] * Beena Saini LANGUAGE SPECIALIST - 07/24/2017 4:28 AM EDT AMV Protocol: [...] Overview: March 2017[facility] Previously noted to be paroxysmal. [...] 07/23/2017 3:50 PM EDT Office of Care Management(OCM)/Commissioning Manager(CM) Service: ENT Pt remains intubated at this [...] get appropriate choices after recs are made. Commissioning Manager Roc Valdez RN, BSN Pager #[phone] * Sony Oliva MD - 07/23/2017 11:31 [...] 07/23/2017 No results found for: PHART, PO2ART, ZKF0LFU ASSESSMENT, MANAGEMENT, and DECISION MAKING: potential for [...] LEAST ONE OF THESE DX to USE 13598 ARDS Stupor Hypoxemic Resp Failure (Fi02>50%) Delirium [...] MD, PGY2 07/23/17 7:00 AM * Kaiden Groman RCP - 07/23/2017 12:56 AM EDT AMV [...] LEAST ONE OF THESE DX to USE 88180 ARDS Stupor Hypoxemic Resp Failure (Fi02>50%) Delirium [...] to reach the patient's provider, Red 1 6844, regarding above. Monitor weight. Jose Laws is [...] 87% of RDI's for vitamins and minerals. KAHTY JASSO * Sony Oliva MD - 07/21/2017 [...] LEAST ONE OF THESE DX to USE 76307 ARDS Stupor Hypoxemic Resp Failure (Fi02>50%) Delirium [...] 07/20/17 7:21 AM * Kaiden Gorman, [facility] - 07/20/2017 4:35 AM EDT [...] LEAST ONE OF THESE DX to USE 92167 ARDS Stupor Hypoxemic Resp Failure (Fi02>50%) Delirium [...] ENT with Dr. Contreras TBD __ Abigail Martion MD, PGY2 07/19/17 7:50 AM * Jeannie [...] Lakeshia Mckeon MD * Jeannie Jewell, [facility] - 07/17/2017 7:24 PM EDT [...] Jr, MD, PGY2 07/17/17 8:21 PM Pager: [phone] (For daytime 6AM - 6PM) Please contact on-call night ENT product management internship for issues between 6PM - 6AM * [...] the need arise fora surgical airway. - [facility] vent protocol - HOB 30 [...] Salazar Bhagat MD 07/17/2017 10:01 AM * eJannie Jewell RCP - 07/16/2017 11:40 PM EDT [...] kg (294 lb). Admit Weight: 133.36 kg Sodus Body Weight: 90.3 kg I/O last 1 [...] pt successfully extubated. ?? Lillian Pardo MA CCC-AUTOMATION AND CONTROLS SUPERVISOR Inpatient Rehabilitation Medicine pager:# [phone] * Salazar Bhagat MD - 07/16/2017 11:57 [...] -- 3.7* 2.1 CBC Recent Labs 07/16/1739907/15/17 1228 07/14/17 0036 WBC 10.2* 14.6* 14.6* RBC [...] need arise for a surgical airway. - [facility] vent protocol - HOB 30 [...] Martino MD, PGY1 07/16/17 9:12 AM Pager: [phone] (For daytime 6AM - 6PM) Please contact on-call night ENT product management internship for issues between 6PM - 6AM * Supa Sharif, [facility] - 07/15/2017 8:15 PM EDT [...] need arise for a surgical airway. - [facility] vent protocol - Dexamethasone x3 [...] Laws Age/Sex: 66 y.o. male Attending: Sriram Cnotreras MD Hospital Day: 3 2 Days Post-Op [...] Martino MD, PGY1 07/15/17 7:06 AM Pager: [phone] (For daytime 6AM - 6PM) Please contact on-call night ENT product management internship for issues between 6PM - 6AM * Supa Sharif, [facility] - 07/14/2017 9:40 PM EDT [...] ?? Pulm: nasally intubated, difficult airway - [facility] vent protocol - Dexamethasone x3 [...] 07/14/2017 6:47 PM * Adam Montana, [facility] - 07/14/2017 2:03 PM EDT [...] Martino MD, PGY1 07/14/17 9:38 AM Pager: [phone] (For daytime 6AM - 6PM) Please contact on-call night ENT product management internship for issues between 6PM - 6AM * [...] of this encounter: 133.4 kg (294 lb). Sodus Body Weight: 90.3 kg I/O last 1 [...] service. Nutrition to follow. * Cecilia Doll, EARLY CHILDHOOD EDUCATOR AIDE - 07/14/2017 5:36 AM EDT Mechanical Ventilation Note Vent Settings: Pressure Support 5 PEEP 5 FIO2 0.4 ETT: Left Nare placed at: 28 cm at the nare Changes made this shift: transitioned to pressure support 5 PEEP 5 FIO2 0.4 SBT Protocol: Yes Pass SBT: Yes AMV Protocol: Yes Assessment: ETT secured via suture. Of note, the automatic pilot mechanic balloon line is wrapped up in the [...] Date ??? ACHILLES TENDON SURGERY Right 1996 [facility] ??? KNEE ARTHROSCOPY [facility] ??? PRO BIOPSY OROPHARYNX N/A 05/24/2017 BIOPSY, OROPHARYNX (WRVU 1.44) performed by Zafar Madera MD at [facility] MAIN OR ??? PRO LARYNGOSCOPY, DIRCT, OP SCOPE, BIOPSY N/A 05/24/2017 LARYNGOSCOPY, MICROSCOPE, WITH BIOPSY (WRVU 3.55) performed by Zafar Madera MD at [facility] MAIN OR ??? QUADRACEPS TENDON REPAIR Right 04/2016 [facility] ??? TONSILLECTOMY Allergies: Allergies Allergen Reactions [...] education: 17 Occupational History ??? 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 He is to Briana for 40 yrs. 4 children - All live in different states - [place]. Enjoys raising Beef Cattle and doing Civil War and Living History and shoot Black powder/Antique firearms. He enjoys builiding Firearms/Blacksmithing - [place], [place], etc. Review of Systems: Not obtained due [...] - currently stable Pulm: nasally intubated - [facility] vent protocol GI: DHT - [...] this case performed under IRB Protocol Study [id number] (Improving throat cancer surgical outcomes through intra-operative [...] to the planned procedure. Hand Hygiene: The credit processor did perform hand hygiene prior to arterial [...] respiratory failure Location of Procedure: ICU [facility]. Risks and Benefits: The risks and benefits [...] RECOMMENDATIONS: ?? Continue dysphagia soft diet and [place]-thick liquids. ?? Upright to feed. ?? Small bites/sips. ?? Medications crushed in applesauce. Sriram Thompson MS [facility]-AUTOMATION AND CONTROLS SUPERVISOR Speech-Language Pathologist Rehabilitation Medicine Pager - [phone] Problem: Acute Rehab Services Goal & Intervention [...] Anticipated Discharge Disposition: inpatient rehabilitation facility Pager: [phone] OTONIEL JOSHUA OT 07/28/2017 Occupational Therapy Rehabilitation [...] * Plan of Care - Sriram Thompson, AUTOMATION AND CONTROLS SUPERVISOR - 07/28/2017 2:18 PM EDT Problem: Patient [...] documentation. RECOMMENDATIONS: ?? Dysphagia soft diet and [place]-thick liquids. ?? Upright to feed. ?? Small bites / sips. ?? Crush medications in applesauce when possible. Sriram Thompson MS [facility]-AUTOMATION AND CONTROLS SUPERVISOR Speech-Language Pathologist Rehabilitation Medicine Pager - [phone] Problem: Acute Rehab Services Goal & Intervention [...] Anticipated Discharge Disposition: inpatient rehabilitation facility Pager: [phone] CRISTIAN NELSON, PT 07/27/2017 Physical Therapy Rehabilitation [...] sit/sit to supine -- Bed Mobility Goal, Florence Level independent -- Bed Mobility Goal, Outcome Achieved -- goal ongoing Goal: Gait Training Goal Stand Alone Therapy Goal Outcome: Ongoing (Interventions Implemented as Appropriate) 07/26/17 1329 07/27/17 1230 Gait Training Goal Gait Training Goal, Date Established 07/26/17 -- Gait Training Goal, Time to Achieve 30 days -- Gait Training Goal, [place] Level supervision required -- Gait Training Goal, [...] days -- Transfer Training Goal, Activity Type fjf-jf-kekbj/knsma-zv-gxo;tcq-yd-xwixg/hepbx-gn-kbg -- Transfer Train Goal, [place] Level supervision required -- Transfer Training Goal, Assist Device walker, rolling -- Transfer Training Goal, Outcome -- goal ongoing * Plan of Care - Sriram Thompson, AUTOMATION AND CONTROLS SUPERVISOR - 07/27/2017 10:59 AM EDT Problem: Patient [...] Crush medications in applesauce. Sriram Thompson MS [facility]-AUTOMATION AND CONTROLS SUPERVISOR Speech-Language Pathologist Rehabilitation Medicine Pager - [phone] Problem: Acute Rehab Services Goal & Intervention [...] PLAN MOVING FORWARD: -PEG tube. -IV abx -AUTOMATION AND CONTROLS SUPERVISOR consult. -hep gtt. INDIVIDUALIZED FALL PREVENTION INTERVENTIONS: [...] Pt appeared anxious and frustrated this morning. Cement Despatch Operator consulted and talked with patient today. During a transfer to the [facility] it was determinedthat tube feeding was leaking [...] Anticipated Discharge Disposition: inpatient rehabilitation facility Pager: [phone] OTONIEL JOSHUA OT 07/26/2017 Occupational Therapy Rehabilitation [...] Anticipated Discharge Disposition: inpatient rehabilitation facility Pager: [phone] CRISTIAN NELSON, DANY 07/26/2017 Physical Therapy Rehabilitation [...] to sit/sit to supine Bed Mobility Goal, [place] Level independent Goal: Gait Training Goal Stand Alone Therapy Goal Outcome: Ongoing (Interventions Implemented as Appropriate) 07/26/17 1329 Gait Training Goal Gait Training Goal, Date Established 07/26/17 Gait Training Goal, Time to Achieve 30 days Gait Training Goal, [place] Level supervision required Gait Training Goal, Assist [...] 30 days Transfer Training Goal, Activity Type aml-ei-mhvnj/oyrmb-am-tyc;grg-fn-dwmpr/uqcpw-vs-ukt Transfer Train Goal, [place] Level supervision required Transfer Training Goal, Assist [...] Afib (CHADS-VASc of 1) who presented to [facility] for radical neck dissection on 07/13/17. We [...] Date ??? ACHILLES TENDON SURGERY Right 1996 [facility] ??? KNEE ARTHROSCOPY [facility]. [facility] ??? PRO BIOPSY OROPHARYNX N/A 05/24/2017 BIOPSY, OROPHARYNX (WRVU 1.44) performed by Zafar Madera MD at [facility] MAIN OR ??? PRO LARYNGOSCOPY, DIRCT, OP SCOPE, BIOPSY N/A 05/24/2017 LARYNGOSCOPY, MICROSCOPE, WITH BIOPSY (WRVU 3.55) performed by Zafar Madera MD at [facility] MAIN OR ??? PRO LARYNGOSCOPY, DIRECT, DX, OP MICROSCOP N/A 07/16/2017 LARYNGOSCOPY, WITH MICROSCOPE (WRVU 2.57) performed by Sriram Contreras MD at [facility] OR ??? PRO PART EXC TONGUE, UNILAT RAD NECK Right 07/13/2017 @GLOSSECTOMY, PARTIAL,WITH UNILATERAL RADICAL NECK DISSECTION (WRVU 30.14) performed by Sriram Contreras MD at [facility] ??? PRO PARTIAL REMOVAL OF PHARYNX N/A 07/13/2017 PHARYNGECTOMY, LIMITED (WRVU 19.13) performed by Sriram Contreras MD at [facility] ??? PRO UNLISTED PROCEDURE LARYNX N/A 07/13/2017 LARYNGOSCOPY, MICRO, LASER EXCISION (WRVU 12.14) performed by Sriram Contreras MD at [facility] ??? QUADRACEPS TENDON REPAIR Right 04/2016 [facility] ??? TONSILLECTOMY FAMILY HISTORY No family history on file. No family history of VTE SOCIAL HISTORY Social History Social History ??? Marital status: Spouse name: Briana ??? Number of children: 4 ??? 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 He is to Briana for 40 yrs. 4 children - All live in different states - One Kathleen Enjoys raising Beef Cattle and doing Civil War and Living History and shoot Black powder/Antique firearms. He enjoys builiding Firearms/Blacksmithing - [place], [place], etc. PHYSICAL EXAMINATION Most Recent Vitals: 07/26/17 [...] and thrombosis clinic Felice Harvey MD Pager [phone] Heme-Onc Fellow ?? HEMATOLOGY STAFF ADDENDUM I [...] Deanna Menjivar MD Hematology Staff physician, Pager: [phone] 07/26/17 * Plan of Care - Sriram Thompson, AUTOMATION AND CONTROLS SUPERVISOR - 07/26/2017 9:33 AM EDT Problem: Patient [...] degrees at all times. Sriram Thompson MS [facility]-AUTOMATION AND CONTROLS SUPERVISOR Speech-Language Pathologist Rehabilitation Medicine Pager - [phone] Problem: Acute Rehab Services Goal & Intervention [...] per order. PLAN MOVING FORWARD: Transfer to [facility] INDIVIDUALIZED FALL PREVENTION INTERVENTIONS: Patient-specific fall risk [...] am. PLAN MOVING FORWARD: Extubate, transfer to [facility] when able INDIVIDUALIZED FALL PREVENTION INTERVENTIONS: Patient-specific [...] Overview Goal: Plan of Care Review 07/23/17 7827 Coping/Psychosocial Plan Of Care Reviewed With patient [...] Outcome: Ongoing (Interventions Implemented as Appropriate) 07/15/17 9834 Skin Integrity Impairment, Risk/Actual Skin Integrity Impairment, [...] MOVING FORWARD: Extubate this am, transfer to [facility] when able INDIVIDUALIZED FALL PREVENTION INTERVENTIONS: Patient-specific [...] RN or CONCEPCION Surveillance [continuous indirect monitoring]: [place] ICU monitor Patient-specific fall prevention interventions for [...] Contreras MD - 07/16/2017 12:27 PM EDT [facility] Operative Note Patient Name: Jose Laws : [id number] MR#: [id number] Case Date: 07/16/2017 Surgeon: Surgeon(s) and Role: [...] Outcome: Ongoing (Interventions Implemented as Appropriate) 07/15/17 3974 Skin Integrity Impairment, Risk/Actual Skin Integrity Impairment, [...] monitoring required during toileting and ADLs]: RN, SUPERVISOR PRINTING SHOP and RT Surveillance [continuous indirect monitoring]: Monitor [...] Contreras MD - 07/15/2017 4:58 PM EDT [facility] Operative Note Patient Name: Jose Laws : [id number] MR#: [id number] Case Date: 07/13/2017 Surgeon: Surgeon(s) and Role: * Sriram Contreras MD - Primary * Selvin Kaye MD - Resident-Corn Husker Machine Operator * Hilton Cheney PA - Physician Delicatessen Slicer Preoperative diagnosis: Right tongue base cancer Postoperative [...] Vicryl suture. Once this was completed, two 15-Maltese Robin drains were placed in the neck, [...] Laws would be surrogate decision maker per [place] surrogate decision making law. Any patient receiving care at [facility] must abide by [place] law. The hierarchy for surrogate decision making [...] (i) The agent with financial power of state attorney or a conservator appointed in accordance [...] Insurance: MEDICARE A & B Secondary Insurance: [employer] BLUE [facility] Prescription Coverage: yes. Preferred Pharmacy: [address] [facility] in [place], [place]. Other: none. Primary Care Provider: Jovon Sifunetes MD [phone] Patient/Caregiver Goals of Treatment: plan being determined at this time. Likely home health at [place]. Potential Needs for Transition of Care: Rehab/SNF: tbd. Home Health: tbd. DME: none previously required. Dialysis: N/A Community Resources: none. Transportation: spouse will provide. Other: none. Anticipated Barriers to Discharge/Special Considerations: no barriers identified at this time. Plan: a member of the Care Management team will continue to monitor progress, follow for continuityof care and assist with transition of care planning. Commissioning Manager Roc Valdez RN, BSN Pager #[phone] documented in this encounter Plan of Treatment Upcoming Encounters Date Type Department Care Team (Late st Contact Info) Description 09/18/2024 10:20 AM EST Office [place] [phone] Sriram Contreras MD [facility] [place] [address] 10/31/2024 1:30 PM EST Office Visit Hematology/Oncology at [address] [phone] Dmitry Bhatti MD [facility] DR HEMATOLOGY [place] [address] Ellen Mcrae APRN [facility] [place] [address] 10/31/2024 2:00 PM EST Infusion Hematology Oncology at [address] [phone] documented as of this encounter Procedures Procedure Name Priority Date/Time Associated Diagnosis Comments FINISH ROLLS OPERATOR SCAN 07/30/2017 12:00 AM EDT HEMOGRAM Routine [...] EDT TYPE AND SCREEN, SDP (FUTURE SURGERY, [facility] SAME DAY PROGRAM ONLY) STAT 07/13/2017 6:27 AM EDT ABO/RH TYPING STAT 07/13/2017 6:27 AM EDT ANTIBODY SCREEN STAT 07/13/2017 6:27 AM EDT documented in this encounter Results * SCAN DOC: FINISH ROLLS OPERATOR (07/30/2017 12:00 AM EDT) Anatomical Region Laterality Modality Other Narrative 07/30/2017 12:00 AM EDT Ordered by an unspecified provider. Scanning Provider MEDIA MGR SCAN EXT O RDR/RSLT * (ABNORMAL) Differential, Automated (07/29/2017 3:41 AM EDT) Neutrophil % 59.9 % [facility] Neutrophil Absolute 4.48 1.70 - 6.10 x10(3)/mc L [facility] Lymph % 26.0 % [facility] Lymphocytes Abs 2.0 0.9 - 3.2 x10(3)/[facility] Monocyte % 10.0 % [facility] Monocyte Abs 0.8 0.3 - 0.9 x10(3)/[facility] Eos % 2.1 % [facility] Eosinophils Abs 0.2 0.0 - 0.4 x10(3)/[facility] Basophil % 0.7 % [facility] Baso Absolute 0.0 0.0 - 0.1 x10(3)/[facility] Immature Gran % 1.30 % [facility] Comment: Immature granulocytes(IG's)percentage and absolute count will include metamyelocytes, myelocytes, and promyelocytes. Blood smears from CBCs yielding IG's will be scanned manually for concordance. If this scan disagrees with the automated IG or if promyelocytes are noted, a manual differential will be performed. Immature Gran Absolute 0.10(H) 0.00 - 0.04 x10(3)/[facility] Blood specimen (specimen) 07/29/2017 3:41 AM EDT 07/29/2017 3:58 AM EDT Narrative Resulting Agency Comment Spec In Lab Sriram Contreras MD HEMATOLOGY ORDERAB LES Performing Organization Address City/State/[facility] Co de Phone Number [facility] [place] [address] * (ABNORMAL) Hemogram (07/29/2017 3:41 AM EDT) White Blood Cell 7.5 4.0 - 9.5 x10(3)/[facility] Red Blood Cell 4.14(L) 4.58 - 5.54 x10(6)/[facility] Hemoglobin 12.7(L) 13.7 - 16.5 gm/dL [facility] Hematocrit 38.1(L) 40.5 - 48.5 % [facility] Mean Cell Volume 92.0 82.9 - 93.1 fL [facility] Mean Cell Hemoglobin 30.7 27.5 - 32.1 pg [facility] Mean Cell Hemoglobin Concentration 33.3 32.0 - 35.7 gm/dL [facility] Platelet 281 145 - 357 x10(3)/mc L [facility] RDW Standard Deviation 46.4(H) 36.0 - 45.0 fL [facility] RDW coefficient of variation 13.9(H) 11.4 - 13.8 % [facility] Mean Platelet Volume 9.9 7.6 - 12.9 fL [facility] NRBC% auto 0.0 % [facility] NRBC Absolute 0.000 0.000 - 0.000 x10(3)/mc L [facility] Blood specimen (specimen) 07/29/2017 3:41 AM EDT 07/29/2017 3:58 AM EDT Narrative Resulting Agency Comment Spec In Lab Sriram Contreras MD HEMATOLOGY ORDERAB LES [facility] [place] [address] * Basic Metabolic Panel (non-fasting) (07/29/2017 3:41 AM EDT) Glucose 95 65 - 199 mg/dL [facility] Comment:Diabetes: >=200 mg/d L plus symptoms Blood Urea Nitrogen 16 10 - 20 mg/dL [facility] Creatinine 0.95 0.80 - 1.50 mg/dL [facility] Comment: Please note that the pediatric reference intervals supplied above were not validated at [facility]. Results from pediatric patients should be interpreted in conjunction to the patient's age, height and muscle mass. Sodium 139 135 - 145 mmol/L [facility] Potassium 3.9 3.5 - 5.0 mmol/L [facility] Comment: Please note: ??Patients with WBC >100,000 may have falsely elevated Potassium levels. ??For accurate Potassium quantification in these patients send serum separator tube (gold top) for subsequent determinations. ??Contact the Clinical Chemistry Laboratory if there are any questions. Chloride 102 98 - 107 mmol/L [facility] Carbon Dioxide 24 22 - 31 mmol/L [facility] Anion Gap 13 5 - 15 mmol/L [facility] Calcium 8.9 8.5 - 10.5 mg/dL [facility] Est Glomerular Filtration Rate >60 >=60 [facility] Comment: This estimated GFR [...] the following links into your internet browser. [email or web address] Blood specimen (specimen) 07/29/2017 3:41 AM EDT 07/29/2017 3:58 AM EDT Narrative Resulting Agency Comment Spec In Lab Sriram Contreras MD CHEMISTRY ORDERABL ES Performing Organization Address [facility]/ZIP Co de Phone Number [facility] [place] [address] * POCT Glucose (07/28/2017 11:53 AM EDT) Glucose, POC 107 65 - 199 mg/dL [facility] Comment: Supplemental ranges: <140 mg/dL before meals <180 mg/dL all other times of the day Blood specimen (specimen) 07/28/2017 11:53 AM EDT 07/28/2017 11:53 AM EDT Sriram Contreras MD POINT OF CARE TEST ORDERABLES [facility] [place] [address] * POCT Glucose (07/28/2017 7:52 AM EDT) Glucose, POC 97 65 - 199 mg/dL [facility] Comment: Supplemental ranges: <140 mg/dL before meals <180 mg/dL all other times of the day Blood specimen (specimen) 07/28/2017 7:52 AM EDT 07/28/2017 7:52 AM EDT Sriram Contreras MD POINT OF CARE TEST ORDERABLES Performing Organization Address City/[facility]/ZIP Co de Phone Number [facility] [place] [address] * POCT Glucose (07/28/2017 4:27 AM EDT) Glucose, POC 98 65 - 199 mg/dL [facility] Comment: Supplemental ranges: <140 mg/dL before meals <180 mg/dL all other times of the day Blood specimen (specimen) 07/28/2017 4:27 AM EDT 07/28/2017 4:27 AM EDT Sriram Contreras MD POINT OF CARE TEST ORDERABLES Performing Organization Address [facility] Co de Phone Number [facility] [place] [address] * Phosphorus (07/28/2017 3:47 AM EDT) Phosphorus 3.7 2.5 - 4.5 mg/dL [facility] Blood specimen (specimen) 07/28/2017 3:47 AM EDT 07/28/2017 6:16 AM EDT Narrative Resulting Agency Comment Spec In Lab Sriram Contreras MD CHEMISTRY ORDERABL ES Performing Organization Address City/[facility]/ZIP Co de Phone Number [facility] [place] [address] * Magnesium (07/28/2017 3:47 AM EDT) Magnesium 0.86 0.69 - 1.07 mmol/L [facility] Blood specimen (specimen) 07/28/2017 3:47 AM EDT 07/28/2017 6:16 AM EDT Narrative Resulting Agency Comment Spec In Lab Sriram Contreras MD CHEMISTRY ORDERABL ES [facility] [place] [address] * (ABNORMAL) Differential, Automated (07/28/2017 3:47 AM EDT) [facility] Neutrophil % 62.2 % [facility] Neutrophil Absolute 4.94 1.70 - 6.10 x10(3)/mc L [facility] Lymph % 22.1 % [facility] Lymphocytes Abs 1.8 0.9 - 3.2 x10(3)/ L [facility] Monocyte % 10.6 % [facility] Monocyte Abs 0.8 0.3 - 0.9 x10(3)/ L [facility] Eos % 2.1 % [facility] Eosinophils Abs 0.2 0.0 - 0.4 x10(3)/ L [facility] Basophil % 1.1 % [facility] Baso Absolute 0.1 0.0 - 0.1 x10(3)/mc L [facility] Immature Gran % 1.90 % [facility] Comment: Immature granulocytes(IG's)percentage and absolute count will include metamyelocytes, myelocytes, and promyelocytes. Blood smears from CBCs yielding IG's will be scanned manually for concordance. If this scan disagrees with the automated IG or if promyelocytes are noted, a manual differential will be performed. Immature Gran Absolute 0.15(H) 0.00 - 0.04 x10(3)/mc L [facility] Blood specimen (specimen) 07/28/2017 3:47 AM EDT 07/28/2017 3:58 AM EDT Narrative Resulting Agency Comment Spec In Lab Sriram Contreras MD HEMATOLOGY ORDERAB LES [facility] [place] [address] * (ABNORMAL) Hemogram (07/28/2017 3:47 AM EDT) White Blood Cell 8.0 4.0 - 9.5 x10(3)/mc L [facility] Red Blood Cell 4.43(L) 4.58 - 5.54 x10(6)/mc L [facility] Hemoglobin 13.4(L) 13.7 - 16.5 gm/dL [facility] Hematocrit 40.3(L) 40.5 - 48.5 % [facility] Mean Cell Volume 91.0 82.9 - 93.1 fL [facility] Mean Cell Hemoglobin 30.2 27.5 - 32.1 pg [facility] Mean Cell Hemoglobin Concentration 33.3 32.0 - 35.7 gm/dL [facility] Platelet 271 145 - 357 x10(3)/mc L [facility] RDW Standard Deviation 45.5(H) 36.0 - 45.0 [facility] RDW coefficient of variation 13.8 11.4 - 13.8 % [facility] Mean Platelet Volume 9.9 7.6 - 12.9 fL [facility] NRBC% auto 0.0 % [facility] NRBC Absolute 0.000 0.000 - 0.000 x10(3)/mc L [facility] Blood specimen (specimen) 07/28/2017 3:47 AM EDT 07/28/2017 3:58 AM EDT Narrative Resulting Agency Comment Spec In Lab Sriarm Contreras MD HEMATOLOGY ORDERAB LES [facility] [place] [address] * Basic Metabolic Panel (non-fasting) (07/28/2017 3:47 AM EDT) Glucose 110 65 - 199 mg/dL [facility] Comment:Diabetes: >=200 mg/d L plus symptoms Blood Urea Nitrogen 19 10 - 20 mg/dL [facility] Creatinine 0.96 0.80 - 1.50 mg/dL [facility] Comment: Please note that the pediatric reference intervals supplied above were not validated at [facility]. Results from pediatric patients should be interpreted in conjunction to the patient's age, height and muscle mass. Sodium 140 135 - 145 mmol/L [facility] Potassium 3.6 3.5 - 5.0 mmol/L [facility] Comment: Please note: ??Patients with WBC >100,000 may have falsely elevated Potassium levels. ??For accurate Potassium quantification in these patients send serum separator tube (gold top) for subsequent determinations. ??Contact the Clinical Chemistry Laboratory if there are any questions. Chloride 101 98 - 107 mmol/L [facility] Carbon Dioxide 24 22 - 31 mmol/L [facility] Anion Gap 15 5 - 15 mmol/L [facility] Calcium 8.9 8.5 - 10.5 mg/dL [facility] Est Glomerular Filtration Rate >60 >=60 [facility] Comment: This estimated GFR [...] the following links into your internet browser. [email or web address] Blood specimen (specimen) 07/28/2017 3:47 AM EDT 07/28/2017 3:58 AM EDT Narrative Resulting Agency Comment Spec In Lab Sriram Contreras MD CHEMISTRY ORDERABL ES Performing Organization Address [facility] Co de Phone Number [facility] [place] [address] * POCT Glucose (07/27/2017 11:52 PM EDT) Glucose, POC 94 65 - 199 mg/dL [facility] Comment: Supplemental ranges: <140 mg/dL before meals <180 mg/dL all other times of the day Blood specimen (specimen) 07/27/2017 11:52 PM EDT 07/27/2017 11:52 PM EDT Sriram Contreras MD POINT OF CARE TEST ORDERABLES Performing Organization Address [facility] de Phone Number [facility] [place] [address] * Heparin, low molecular weight assay (07/27/2017 8:19 PM EDT) [facility] Signature Heparin [id number] 0.67 IU/mL [facility] Comment: Guidelines for therapeutic unfractionated and [...] ORDERAB LES Performing Organization Address [facility] de Phone Number [facility] [place] [address] * POCT Glucose (07/27/2017 7:35 PM EDT) Glucose, POC 118 65 - 199 mg/dL [facility] Comment: Supplemental ranges: <140 mg/dL before meals <180 mg/dL all other times of the day Blood specimen (specimen) 07/27/2017 7:35 PM EDT 07/27/2017 7:35 PM EDT Sriram Contreras MD POINT OF CARE TEST ORDERABLES Performing Organization Address [facility] Phone Number [facility] [place] [address] * POCT Glucose (07/27/2017 3:28 PM EDT) Glucose, POC 104 65 - 199 mg/dL [facility] Comment: Supplemental ranges: <140 mg/dL before meals <180 mg/dL all other times of the day Blood specimen (specimen) 07/27/2017 3:28 PM EDT 07/27/2017 3:28 PM EDT Sriram Contreras MD POINT OF CARE TEST ORDERABLES Performing Organization Address City/[facility]/ZIP Co de Phone Number [facility] [place] [address] * POCT Glucose (07/27/2017 11:06 AM EDT) Glucose, POC 147 65 - 199 mg/dL [facility] Comment: Supplemental ranges: <140 mg/dL before meals <180 mg/dL all other times of the day Blood specimen (specimen) 07/27/2017 11:06 AM EDT 07/27/2017 11:06 AM EDT Sriram Contreras MD POINT OF CARE TEST ORDERABLES Performing Organization Address City/[facility] Co de Phone Number [facility] [place] [address] * POCT Glucose (07/27/2017 7:25 AM EDT) Glucose, POC 105 65 - 199 mg/dL [facility] Comment: Supplemental ranges: <140 mg/dL before meals <180 mg/dL all other times of the day Blood specimen (specimen) 07/27/2017 7:25 AM EDT 07/27/2017 7:25 AM EDT Sriram Contreras MD POINT OF CARE TEST ORDERABLES Performing Organization Address City/[facility] Co de Phone Number [facility] [place] [address] * Duplex Study for DVT, Bilat legs (07/27/2017 6:59 AM EDT) VB Text Report Department: Vascular Surgery Lab Patient: [id number] (JOSE LAWS) CPT: 71733 ICD10: I26.99 Referring Physician: SRIRAM CONTRERAS ?? [...] MD VASCULAR ORDERABLE S Performing Organization Address City/[facility] Co de Phone Number [facility] * POCT Glucose (07/27/2017 3:52 AM EDT) Glucose, POC 106 65 - 199 mg/dL [facility] Comment: Supplemental ranges: <140 mg/dL before meals <180 mg/dL all other times of the day Blood specimen (specimen) 07/27/2017 3:52 AM EDT 07/27/2017 3:52 AM EDT Sriram Contreras MD POINT OF CARE TEST ORDERABLES Performing Organization Address [facility]/State/ZIP Co de Phone Number [facility] [place] [address] * (ABNORMAL) APTT (07/27/2017 2:45 AM EDT) Pathologist [facility] Partial Thromboplastin Time 92(H) 25 - 35 sec [facility] Comment: The recommended therapeutic range for full dose, unfractionated heparin at [facility] is 80 ? 114 seconds. The use of the anti-Xa (heparin) level rather than the PTT is recommended for monitoring anticoagulation intensity in critically ill patients receiving unfractionated heparin by continuous IV infusion. Blood specimen (specimen) 07/27/2017 2:45 AM EDT 07/27/2017 2:55 AM EDT Narrative Resulting Agency Comment Spec In Lab Sriram Contreras MD HEMATOLOGY ORDERAB LES [facility] [place] [address] * (ABNORMAL) Differential, Automated (07/27/2017 2:45 AM EDT) [facility] Neutrophil % 67.8 % [facility] Neutrophil Absolute 8.40(H) 1.70 - 6.10 x10(3)/mc L [facility] Lymph % 17.4 % [facility] Lymphocytes Abs 2.2 0.9 - 3.2 x10(3)/mc L [facility] Monocyte % 9.5 % [facility] Monocyte Abs 1.2(H) 0.3 - 0.9 x10(3)/mc L [facility] Eos % 1.4 % [facility] Eosinophils Abs 0.2 0.0 - 0.4 x10(3)/mc L [facility] Basophil % 0.9 % [facility] Baso Absolute 0.1 0.0 - 0.1 x10(3)/mc L [facility] Immature Gran % 3.00 % [facility] Comment: Immature granulocytes(IG's)percentage and absolute count will include metamyelocytes, myelocytes, and promyelocytes. Blood smears from CBCs yielding IG's will be scanned manually for concordance. If this scan disagrees with the automated IG or if promyelocytes are noted, a manual differential will be performed. Immature Gran Absolute 0.37(H) 0.00 - 0.04 x10(3)/mc L [facility] Blood specimen (specimen) 07/27/2017 2:45 AM EDT 07/27/2017 2:55 AM EDT Narrative Resulting Agency Comment Spec In Lab Sriram Contreras MD HEMATOLOGY ORDERAB LES [facility] [place] [address] * (ABNORMAL) Hemogram (07/27/2017 2:45 AM EDT) White Blood Cell 12.4(H) 4.0 - 9.5 x10(3)/mc L [facility] Red Blood Cell 4.66 4.58 - 5.54 x10(6)/mc L [facility] Hemoglobin 14.3 13.7 - 16.5 gm/dL [facility] Hematocrit 42.0 40.5 - 48.5 % [facility] Mean Cell Volume 90.1 82.9 - 93.1 fL [facility] Mean Cell Hemoglobin 30.7 27.5 - 32.1 pg [facility] Mean Cell Hemoglobin Concentration 34.0 32.0 - 35.7 gm/dL [facility] Platelet 288 145 - 357 x10(3)/mc L [facility] RDW Standard Deviation 45.5(H) 36.0 - 45.0 fL [facility] RDW coefficient of variation 14.0(H) 11.4 - 13.8 % [facility] Mean Platelet Volume 9.7 7.6 - 12.9 fL [facility] NRBC% auto 0.0 % [facility] NRBC Absolute 0.000 0.000 - 0.000 x10(3)/mc L [facility] Blood specimen (specimen) 07/27/2017 2:45 AM EDT 07/27/2017 2:55 AM EDT Narrative Resulting Agency Comment Spec In Lab Sriram Contreras MD HEMATOLOGY ORDERAB LES [facility] [place] [address] * (ABNORMAL) Basic Metabolic Panel (non-fasting) (07/27/2017 2:45 AM EDT) Glucose 169 65 - 199 mg/dL [facility] Comment:Diabetes: >=200 mg/d L plus symptoms Blood Urea Nitrogen 22(H) 10 - 20 mg/dL [facility] Creatinine 0.92 0.80 - 1.50 mg/dL [facility] Comment: Please note that the pediatric reference intervals supplied above were not validated at [facility]. Results from pediatric patients should be interpreted in conjunction to the patient's age, height and muscle mass. Sodium 139 135 - 145 mmol/L [facility] Potassium 3.7 3.5 - 5.0 mmol/L [facility] Comment: Please note: ??Patients with WBC >100,000 may have falsely elevated Potassium levels. ??For accurate Potassium quantification in these patients send serum separator tube (gold top) for subsequent determinations. ??Contact the Clinical Chemistry Laboratory if there are any questions. Chloride 100 98 - 107 mmol/L [facility] Carbon Dioxide 23 22 - 31 mmol/L [facility] Anion Gap 16(H) 5 - 15 mmol/L [facility] Calcium 9.4 8.5 - 10.5 mg/dL [facility] Est Glomerular Filtration Rate >60 >=60 [facility] Comment: This estimated GFR [...] the following links into your internet browser. [email or web address] Blood specimen (specimen) 07/27/2017 2:45 AM EDT 07/27/2017 2:55 AM EDT Narrative Resulting Agency Comment Spec In Lab Sriram Contreras MD CHEMISTRY ORDERABL ES Performing Organization Address [facility] Co de Phone Number [facility] [place] [address] * Phosphorus (07/27/2017 2:45 AM EDT) Phosphorus 4.3 2.5 - 4.5 mg/dL [facility] Blood specimen (specimen) 07/27/2017 2:45 AM EDT 07/27/2017 2:55 AM EDT Narrative Resulting Agency Comment Spec In Lab Sriram Contreras MD CHEMISTRY ORDERABL ES Performing Organization Address [facility] de Phone Number [facility] [place] [address] * Magnesium (07/27/2017 2:45 AM EDT) Magnesium 0.79 0.69 - 1.07 mmol/L [facility] Blood specimen (specimen) 07/27/2017 2:45 AM EDT 07/27/2017 2:55 AM EDT Narrative Resulting Agency Comment Spec In Lab Sriram Contreras MD CHEMISTRY ORDERABL ES Performing Organization Address [facility] Co de Phone Number [facility] [place] [address] * POCT Glucose (07/27/2017 12:02 AM EDT) Glucose, POC 112 65 - 199 mg/dL [facility] Comment: Supplemental ranges: <140 mg/dL before meals <180 mg/dL all other times of the day Blood specimen (specimen) 07/27/2017 12:02 AM EDT 07/27/2017 12:02 AM EDT Sriram Contreras MD POINT OF CARE TEST ORDERABLES Performing Organization Address [facility] Co de Phone Number [facility] [place] [address] * (ABNORMAL) APTT (07/26/2017 9:29 PM EDT) Partial Thromboplastin Time 90(H) 25 - 35 sec [facility] Comment: The recommended therapeutic range for full dose, unfractionated heparin at [facility] is 80 ? 114 seconds. The use of the anti-Xa (heparin) level rather than the PTT is recommended for monitoring anticoagulation intensity in critically ill patients receiving unfractionated heparin by continuous IV infusion. Blood specimen (specimen) 07/26/2017 9:29 PM EDT 07/26/2017 9:32 PM EDT Narrative Resulting Agency Comment Spec In Lab Sriram Contreras MD HEMATOLOGY ORDERAB LES Performing Organization Address [facility] de Phone Number [facility] [place] [address] * POCT Glucose (07/26/2017 8:14 PM EDT) Glucose, POC 116 65 - 199 mg/dL [facility] Comment: Supplemental ranges: <140 mg/dL before meals <180 mg/dL all other times of the day Blood specimen (specimen) 07/26/2017 8:14 PM EDT 07/26/2017 8:14 PM EDT Sriram Contreras MD POINT OF CARE TEST ORDERABLES Performing Organization Address [facility] Co de Phone Number [facility] [place] [address] * POCT Glucose (07/26/2017 3:20 PM EDT) Glucose, POC 125 65 - 199 mg/dL [facility] Comment: Supplemental ranges: <140 mg/dL before meals <180 mg/dL all other times of the day Blood specimen (specimen) 07/26/2017 3:20 PM EDT 07/26/2017 3:20 PM EDT Sriram Contreras MD POINT OF CARE TEST ORDERABLES Performing Organization Address [facility] Co de Phone Number [facility] [place] [address] * (ABNORMAL) APTT (07/26/2017 1:51 PM EDT) Partial Thromboplastin Time 88(H) 25 - 35 sec [facility] Comment: The recommended therapeutic range for full dose, unfractionated heparin at [facility] is 80 ? 114 seconds. The use of the anti-Xa (heparin) level rather than the PTT is recommended for monitoring anticoagulation intensity in critically ill patients receiving unfractionated heparin by continuous IV infusion. Blood specimen (specimen) 07/26/2017 1:51 PM EDT 07/26/2017 1:55 PM EDT Narrative Resulting Agency Comment Spec In Lab Sriram Contreras MD HEMATOLOGY ORDERAB LES Performing Organization Address [facility] Co de Phone Number [facility] [place] [address] * POCT Glucose (07/26/2017 11:12 AM EDT) Glucose, POC 120 65 - 199 mg/dL [facility] Comment: Supplemental ranges: <140 mg/dL before meals <180 mg/dL all other times of the day Blood specimen (specimen) 07/26/2017 11:12 AM EDT 07/26/2017 11:12 AM EDT Sriram Contreras MD POINT OF CARE TEST ORDERABLES Performing Organization Address City/[facility] Co de Phone Number [facility] [place] [address] * POCT Glucose (07/26/2017 7:35 AM EDT) Pathologist [facility] Glucose, POC 115 65 - 199 mg/dL [facility] Comment: Supplemental ranges: <140 mg/dL before meals <180 mg/dL all other times of the day Blood specimen (specimen) 07/26/2017 7:35 AM EDT 07/26/2017 7:35 AM EDT Sriram Contreras MD POINT OF CARE TEST ORDERABLES Performing Organization Address [facility] de Phone Number [facility] [place] [address] * (ABNORMAL) APTT (07/26/2017 3:30 AM EDT) [facility] Partial Thromboplastin Time 60(H) 25 - 35 sec [facility] Comment: The recommended therapeutic range for full dose, unfractionated heparin at [facility] is 80 ? 114 seconds. The use of the anti-Xa (heparin) level rather than the PTT is recommended for monitoring anticoagulation intensity in critically ill patients receiving unfractionated heparin by continuous IV infusion. Blood specimen (specimen) 07/26/2017 3:30 AM EDT 07/26/2017 4:11 AM EDT Narrative Resulting Agency Comment Spec In Lab Sriram Contreras MD HEMATOLOGY ORDERAB LES Performing Organization Address [facility] Co de Phone Number [facility] [place] [address] * (ABNORMAL) Differential, Automated (07/26/2017 3:30 AM EDT) Pathologist [facility] Neutrophil % 68.7 % [facility] Neutrophil Absolute 8.50(H) 1.70 - 6.10 x10(3)/mc L [facility] Lymph % 14.3 % [facility] Lymphocytes Abs 1.8 0.9 - 3.2 x10(3)/ L [facility] Monocyte % 9.6 % [facility] Monocyte Abs 1.2(H) 0.3 - 0.9 x10(3)/[facility] Eos % 1.3 % [facility] Eosinophils Abs 0.2 0.0 - 0.4 x10(3)/[facility] Basophil % 1.4 % [facility] Baso Absolute 0.2(H) 0.0 - 0.1 x10(3)/[facility] Immature Gran % 4.70 % [facility] Comment: Immature granulocytes(IG's)percentage and absolute count will include metamyelocytes, myelocytes, and promyelocytes. Blood smears from CBCs yielding IG's will be scanned manually for concordance. If this scan disagrees with the automated IG or if promyelocytes are noted, a manual differential will be performed. Immature Gran Absolute 0.58(H) 0.00 - 0.04 x10(3)/[facility] Blood specimen (specimen) 07/26/2017 3:30 AM EDT 07/26/2017 4:11 AM EDT Narrative Resulting Agency Comment Spec In Lab Sriram Contreras MD HEMATOLOGY ORDERAB LES Performing Organization Address City/State/[facility] Co de Phone Number [facility] [place] [address] * (ABNORMAL) Hemogram (07/26/2017 3:30 AM EDT) White Blood Cell 12.4(H) 4.0 - 9.5 x10(3)/[facility] Red Blood Cell 4.87 4.58 - 5.54 x10(6)/[facility] Hemoglobin 15.2 13.7 - 16.5 gm/dL [facility] Hematocrit 44.1 40.5 - 48.5 % [facility] Mean Cell Volume 90.6 82.9 - 93.1 fL [facility] Mean Cell Hemoglobin 31.2 27.5 - 32.1 pg [facility] Mean Cell Hemoglobin Concentration 34.5 32.0 - 35.7 gm/dL [facility] Platelet 253 145 - 357 x10(3)/mc L [facility] RDW Standard Deviation 44.8 36.0 - 45.0 fL [facility] RDW coefficient of variation 13.6 11.4 - 13.8 % [facility] Mean Platelet Volume 10.4 7.6 - 12.9 fL [facility] NRBC% auto 0.2 % [facility] NRBC Absolute 0.020(H) 0.000 - 0.000 x10(3)/mc L [facility] Blood specimen (specimen) 07/26/2017 3:30 AM EDT 07/26/2017 4:11 AM EDT Narrative Resulting Agency Comment Spec In Lab Sriram Contreras MD HEMATOLOGY ORDERAB LES [facility] [place] [address] * Basic Metabolic Panel (non-fasting) (07/26/2017 3:30 AM EDT) Glucose 123 65 - 199 mg/dL [facility] Comment:Diabetes: >=200 mg/d L plus symptoms Blood Urea Nitrogen 18 10 - 20 mg/dL [facility] Creatinine 0.85 0.80 - 1.50 mg/dL [facility] Comment: Please note that the pediatric reference intervals supplied above were not validated at [facility]. Results from pediatric patients should be interpreted in conjunction to the patient's age, height and muscle mass. Sodium 141 135 - 145 mmol/L [facility] Potassium 3.8 3.5 - 5.0 mmol/L [facility] Comment: Please note: ??Patients with WBC >100,000 may have falsely elevated Potassium levels. ??For accurate Potassium quantification in these patients send serum separator tube (gold top) for subsequent determinations. ??Contact the Clinical Chemistry Laboratory if there are any questions. Chloride 102 98 - 107 mmol/L [facility] Carbon Dioxide 25 22 - 31 mmol/L [facility] Anion Gap 14 5 - 15 mmol/L [facility] Calcium 9.2 8.5 - 10.5 mg/dL [facility] Est Glomerular Filtration Rate >60 >=60 [facility] Comment: This estimated GFR [...] the following links into your internet browser. [email or web address] Blood specimen (specimen) 07/26/2017 3:30 AM EDT 07/26/2017 4:11 AM EDT Narrative Resulting Agency Comment Spec In Lab Sriram Contreras MD CHEMISTRY ORDERABL ES Performing Organization Address [facility] de Phone Number [facility] [place] [address] * Prealbumin (07/26/2017 3:30 AM EDT) Prealbumin 26 20 - 40 mg/dL [facility] Comment: Prealbumin levels are generally lower in the pediatric population; adult concentrations are usually attained near puberty. Blood specimen (specimen) 07/26/2017 3:30 AM EDT 07/26/2017 4:11 AM EDT Narrative Resulting Agency Comment Spec In Lab Sriram Contreras MD CHEMISTRY ORDERABL ES Performing Organization Address [facility] Co de Phone Number [facility] [place] [address] * POCT Glucose (07/26/2017 3:27 AM EDT) Glucose, POC 116 65 - 199 mg/dL [facility] Comment: Supplemental ranges: <140 mg/dL before meals <180 mg/dL all other times of the day Blood specimen (specimen) 07/26/2017 3:27 AM EDT 07/26/2017 3:27 AM EDT Sriram Contreras MD POINT OF CARE TEST ORDERABLES Performing Organization Address City/[facility]/ZIP Co de Phone Number [facility] [place] [address] * POCT Glucose (07/25/2017 7:50 PM EDT) Glucose, POC 109 65 - 199 mg/dL [facility] Comment: Supplemental ranges: <140 mg/dL before meals <180 mg/dL all other times of the day Blood specimen (specimen) 07/25/2017 7:50 PM EDT 07/25/2017 7:50 PM EDT Sriram Contreras MD POINT OF CARE TEST ORDERABLES Performing Organization Address City/[facility]/ZIP Co de Phone Number [facility] [place] [address] * (ABNORMAL) APTT (07/25/2017 5:51 PM EDT) Partial Thromboplastin Time 112(H) 25 - 35 sec [facility] Comment: The recommended therapeutic range for full dose, unfractionated heparin at [facility] is 80 ? 114 seconds. The use of the anti-Xa (heparin) level rather than the PTT is recommended for monitoring anticoagulation intensity in critically ill patients receiving unfractionated heparin by continuous IV infusion. Blood specimen (specimen) 07/25/2017 5:51 PM EDT 07/25/2017 5:55 PM EDT Narrative Resulting Agency Comment Spec In Lab Sriram Contreras MD HEMATOLOGY ORDERAB LES Performing Organization Address [facility] Co de Phone Number [facility] [place] [address] * POCT Glucose (07/25/2017 4:01 PM EDT) Glucose, POC 109 65 - 199 mg/dL [facility] Comment: Supplemental ranges: <140 mg/dL before meals <180 mg/dL all other times of the day Blood specimen (specimen) 07/25/2017 4:01 PM EDT 07/25/2017 4:01 PM EDT Sriram Contreras MD POINT OF CARE TEST ORDERABLES Performing Organization Address [facility] Co de Phone Number [facility] [place] [address] * POCT Glucose (07/25/2017 12:10 PM EDT) Glucose, POC 117 65 - 199 mg/dL [facility] Comment: Supplemental ranges: <140 mg/dL before meals <180 mg/dL all other times of the day Blood specimen (specimen) 07/25/2017 12:10 PM EDT 07/25/2017 12:10 PM EDT Sriram Contreras MD POINT OF CARE TEST ORDERABLES Performing Organization Address [facility] Co de Phone Number [facility] [place] [address] * Potassium (07/25/2017 11:00 AM EDT) Potassium 3.9 3.5 - 5.0 mmol/L [facility] Comment: Please note: ??Patients [...] MD CHEMISTRY ORDERABL ES Performing Organization Address [facility] de Phone Number [facility] [place] [address] * (ABNORMAL) APTT (07/25/2017 11:00 AM EDT) [facility] Signature Partial Thromboplastin Time 102(H) 25 - 35 sec [facility] Comment: The recommended therapeutic range for full dose, unfractionated heparin at [facility] is 80 ? 114 seconds. The use of the anti-Xa (heparin) level rather than the PTT is recommended for monitoring anticoagulation intensity in critically ill patients receiving unfractionated heparin by continuous IV infusion. Blood specimen (specimen) 07/25/2017 11:00 AM EDT 07/25/2017 11:05 AM EDT Narrative Resulting Agency Comment Spec In Lab Sriram Contreras MD HEMATOLOGY ORDERAB LES Performing Organization Address [facility] de Phone Number [facility] [place] [address] * POCT Glucose (07/25/2017 8:27 AM EDT) [facility] Glucose, POC 124 65 - 199 mg/dL [facility] Comment: Supplemental ranges: <140 mg/dL before meals <180 mg/dL all other times of the day Blood specimen (specimen) 07/25/2017 8:27 AM EDT 07/25/2017 8:27 AM EDT Sriram Contreras MD POINT OF CARE TEST ORDERABLES Performing Organization Address [facility] de Phone Number [facility] [place] [address] * (ABNORMAL) BLOOD GAS 2 ARTERIAL (07/25/2017 6:19 AM EDT) [facility] pH, Arterial 7.51(H) 7.35 - 7.45 [facility] PCO2, Arterial 29(L) 35 - 45 mmHg [facility] PO2, Arterial 59(L) 85 - 104 mmHg [facility] Bicarbonate, Arterial 22.2 20.0 - 26.0 mmol/L [facility] Base Excess, Arterial -0.9 -3.0 - 3.0 mmol/L [facility] Hgb Blood Gas 14.6 13.7 - 16.5 gm/dL [facility] Oxyhemoglobin, Arterial 91.1(L) 94.0 - 97.0 % [facility] Carboxyhemoglob in, Arterial 0.3 % [facility] Comment: Nonsmokers: 0.5-1.5% COHB Smokers: Variable, but usually less than 10% Toxic: 20-30% COHB Lethal: Greater than 60% COHB Methemoglobin, Arterial 0.6 <=1.5 % [facility] Na Whole Blood 141 135 - 145 mmol/L [facility] K Whole Blood 3.8 3.5 - 5.0 mmol/L [facility] Comment: Please note: Patients with WBC >100,000 may have falsely elevated Potassium levels. Contact the Clinical Chemistry Laboratory if there are any questions. ICa Whole Blood 1.17 1.15 - 1.33 mmol/L [facility] Comment: Note: ??Total bilirubin higher than 20 mg/dL may lead to falsely low ionized calcium. CL Whole Blood 108(H) 98 - 107 mmol/L [facility] Gluc Whole Bld 136 65 - 199 mg/dL [facility] Comment:Diabetes: >=200 mg/d L plus symptoms. Lactate WB 1.5 0.5 - 2.2 mmol/L [facility] Blood specimen (specimen) 07/25/2017 6:19 AM EDT 07/25/2017 6:19 AM EDT Sriram Contreras MD POINT OF CARE TEST ORDERABLES [facility] [place] [address] * POCT Glucose (07/25/2017 4:41 AM EDT) [facility] Glucose, POC 101 65 - 199 mg/dL [facility] Comment: Supplemental ranges: <140 mg/dL before meals <180 mg/dL all other times of the day Blood specimen (specimen) 07/25/2017 4:41 AM EDT 07/25/2017 4:41 AM EDT Sriram Contreras MD POINT OF CARE TEST ORDERABLES Performing Organization Address [facility]/ZIP Co de Phone Number [facility] [place] [address] * Magnesium (07/25/2017 4:37 AM EDT) [facility] Magnesium 0.83 0.69 - 1.07 mmol/L [facility] Blood specimen (specimen) Venous Draw / Unknown 07/25/2017 4:37 AM EDT 07/25/2017 4:50 AM EDT Narrative Resulting Agency Comment Spec In Lab Sriram Contreras MD CHEMISTRY ORDERABL ES Performing Organization Address [facility]/ZIP Co de Phone Number [facility] [place] [address] * (ABNORMAL) Differential, Automated (07/25/2017 4:37 AM EDT) [facility] Neutrophil % 68.4 % [facility] Neutrophil Absolute 8.77(H) 1.70 - 6.10 x10(3)/mc L [facility] Lymph % 15.0 % [facility] Lymphocytes Abs 1.9 0.9 - 3.2 x10(3)/mc L [facility] Monocyte % 8.9 % [facility] Monocyte Abs 1.1(H) 0.3 - 0.9 x10(3)/mc L [facility] Eos % 1.9 % [facility] Eosinophils Abs 0.2 0.0 - 0.4 x10(3)/ L [facility] Basophil % 1.0 % [facility] Baso Absolute 0.1 0.0 - 0.1 x10(3)/[facility] LABOR[facility] Immature Gran % 4.80 % [facility] Comment: Immature granulocytes(IG's)percentage and absolute count will include metamyelocytes, myelocytes, and promyelocytes. Blood smears from CBCs yielding IG's will be scanned manually for concordance. If this scan disagrees with the automated IG or if promyelocytes are noted, a manual differential will be performed. Immature Gran Absolute 0.62(H) 0.00 - 0.04 x10(3)/[facility] Blood specimen (specimen) 07/25/2017 4:37 AM EDT 07/25/2017 4:48 AM EDT Narrative Resulting Agency Comment Spec In Lab Sriram Contreras MD HEMATOLOGY ORDERAB LES [facility] [place] [address] * (ABNORMAL) Hemogram (07/25/2017 4:37 AM EDT) White Blood Cell 12.8(H) 4.0 - 9.5 x10(3)/[facility] Red Blood Cell 4.53(L) 4.58 - 5.54 x10(6)/ L [facility] Hemoglobin 14.0 13.7 - 16.5 gm/dL [facility] Hematocrit 40.3(L) 40.5 - 48.5 % [facility] Mean Cell Volume 89.0 82.9 - 93.1 fL [facility] Mean Cell Hemoglobin 30.9 27.5 - 32.1 pg [facility] Mean Cell Hemoglobin Concentration 34.7 32.0 - 35.7 gm/dL [facility] Platelet 241 145 - 357 x10(3)/mc L [facility] RDW Standard Deviation 43.1 36.0 - 45.0 [facility] RDW coefficient of variation 13.2 11.4 - 13.8 % [facility] Mean Platelet Volume 9.9 7.6 - 12.9 [facility] NRBC% auto 0.0 % [facility] NRBC Absolute 0.000 0.000 - 0.000 x10(3)/mc L [facility] Blood specimen (specimen) 07/25/2017 4:37 AM EDT 07/25/2017 4:48 AM EDT Narrative Resulting Agency Comment Spec In Lab Sriram Contreras MD HEMATOLOGY ORDERAB LES [facility] [place] [address] * Basic Metabolic Panel (non-fasting) (07/25/2017 4:37 AM EDT) Glucose 120 65 - 199 mg/dL [facility] Comment:Diabetes: >=200 mg/d L plus symptoms Blood Urea Nitrogen 14 10 - 20 mg/dL [facility] Creatinine 0.81 0.80 - 1.50 mg/dL [facility] Comment: Please note that the pediatric reference intervals supplied above were not validated at [facility]. Results from pediatric patients should be interpreted in conjunction to the patient's age, height and muscle mass. Sodium 140 135 - 145 mmol/L [facility] Potassium 3.6 3.5 - 5.0 mmol/L [facility] Comment: Please note: ??Patients with WBC >100,000 may have falsely elevated Potassium levels. ??For accurate Potassium quantification in these patients send serum separator tube (gold top) for subsequent determinations. ??Contact the Clinical Chemistry Laboratory if there are any questions. Chloride 103 98 - 107 mmol/L [facility] Carbon Dioxide 24 22 - 31 mmol/L [facility] Anion Gap 13 5 - 15 mmol/L [facility] Calcium 8.8 8.5 - 10.5 mg/dL [facility] Est Glomerular Filtration Rate >60 >=60 [facility] Comment: This estimated GFR [...] the following links into your internet browser. [email or web address] Blood specimen (specimen) 07/25/2017 4:37 AM EDT 07/25/2017 4:48 AM EDT Narrative Resulting Agency Comment Spec In Lab Sriram Contreras MD CHEMISTRY ORDERABL ES Performing Organization Address [facility] de Phone Number [facility] [place] [address] * (ABNORMAL) APTT (07/25/2017 4:37 AM EDT) [facility] Partial Thromboplastin Time 122(H) 25 - 35 sec [facility] Comment: The recommended therapeutic range for full dose, unfractionated heparin at [facility] is 80 ? 114 seconds. The use of the anti-Xa (heparin) level rather than the PTT is recommended for monitoring anticoagulation intensity in critically ill patients receiving unfractionated heparin by continuous IV infusion. Blood specimen (specimen) 07/25/2017 4:37 AM EDT 07/25/2017 4:48 AM EDT Narrative Resulting Agency Comment Spec In Lab Sriram Contreras MD HEMATOLOGY ORDERAB LES Performing Organization Address [facility] Co de Phone Number [facility] [place] [address] * POCT Glucose (07/25/2017 12:10 AM EDT) Glucose, POC 108 65 - 199 mg/dL [facility] Comment: Supplemental ranges: <140 mg/dL before meals <180 mg/dL all other times of the day Blood specimen (specimen) 07/25/2017 12:10 AM EDT 07/25/2017 12:10 AM EDT Sriram Contreras MD POINT OF CARE TEST ORDERABLES [facility] [place] [address] * POCT Glucose (07/24/2017 8:05 PM EDT) Glucose, POC 112 65 - 199 mg/dL [facility] Comment: Supplemental ranges: <140 mg/dL before meals <180 mg/dL all other times of the day Blood specimen (specimen) 07/24/2017 8:05 PM EDT 07/24/2017 8:05 PM EDT Sriram Contreras MD POINT OF CARE TEST ORDERABLES Performing Organization Address City/[facility]/ZIP Co de Phone Number [facility] [place] [address] * POCT Glucose (07/24/2017 8:04 PM EDT) Glucose, POC 106 65 - 199 mg/dL [facility] Comment: Supplemental ranges: <140 mg/dL before meals <180 mg/dL all other times of the day Blood specimen (specimen) 07/24/2017 8:04 PM EDT 07/24/2017 8:04 PM EDT Sriram Contreras MD POINT OF CARE TEST ORDERABLES [facility] [place] [address] * POCT Glucose (07/24/2017 3:42 PM EDT) Glucose, POC 108 65 - 199 mg/dL [facility] Comment: Supplemental ranges: <140 mg/dL before meals <180 mg/dL all other times of the day Blood specimen (specimen) 07/24/2017 3:42 PM EDT 07/24/2017 3:42 PM EDT Sriram Contreras MD POINT OF CARE TEST ORDERABLES Performing Organization Address City/[facility]/ZIP Co de Phone Number [facility] [place] [address] * POCT Glucose (07/24/2017 11:42 AM EDT) Glucose, POC 102 65 - 199 mg/dL [facility] Comment: Supplemental ranges: <140 mg/dL before meals <180 mg/dL all other times of the day Blood specimen (specimen) 07/24/2017 11:42 AM EDT 07/24/2017 11:42 AM EDT Sriram Contreras MD POINT OF CARE TEST ORDERABLES Performing Organization Address [facility] Co de Phone Number [facility] [place] [address] * POCT Glucose (07/24/2017 8:00 AM EDT) Glucose, POC 107 65 - 199 mg/dL [facility] Comment: Supplemental ranges: <140 mg/dL before meals <180 mg/dL all other times of the day Blood specimen (specimen) 07/24/2017 8:00 AM EDT 07/24/2017 8:00 AM EDT Sriram Contreras MD POINT OF CARE TEST ORDERABLES Performing Organization Address City/[facility] Co de Phone Number [facility] [place] [address] * (ABNORMAL) BLOOD GAS 2 ARTERIAL (07/24/2017 7:28 AM EDT) pH, Arterial 7.44 7.35 - 7.45 [facility] PCO2, Arterial 39 35 - 45 mmHg [facility] PO2, Arterial 67(L) 85 - 104 mmHg [facility] Bicarbonate, Arterial 25.5 20.0 - 26.0 mmol/L [facility] Base Excess, Arterial 1.2 -3.0 - 3.0 mmol/L [facility] Hgb Blood Gas 13.8 13.7 - 16.5 gm/dL [facility] Oxyhemoglobin, Arterial 92.8(L) 94.0 - 97.0 % [facility] Carboxyhemoglob in, Arterial 0.3 % [facility] Comment: Nonsmokers: 0.5-1.5% COHB Smokers: Variable, but usually less than 10% Toxic: 20-30% COHB Lethal: Greater than 60% COHB Methemoglobin, Arterial 0.6 <=1.5 % [facility] Na Whole Blood 139 135 - 145 mmol/L [facility] K Whole Blood 4.0 3.5 - 5.0 mmol/L [facility] Comment: Please note: Patients with WBC >100,000 may have falsely elevated Potassium levels. Contact the Clinical Chemistry Laboratory if there are any questions. ICa Whole Blood 1.21 1.15 - 1.33 mmol/L [facility] Comment: Note: ??Total bilirubin higher than 20 mg/dL may lead to falsely low ionized calcium. CL Whole Blood 105 98 - 107 mmol/L [facility] Gluc Whole Bld 123 65 - 199 mg/dL [facility] Comment:Diabetes: >=200 mg/d L plus symptoms. Lactate WB 1.7 0.5 - 2.2 mmol/L [facility] FIO2 Art 30 % [facility] PF Ratio Art 223 [facility] Blood specimen (specimen) 07/24/2017 7:28 AM EDT 07/24/2017 7:28 AM EDT Sriram Contreras MD POINT OF CARE TEST ORDERABLES Performing Organization Address [facility] Co de Phone Number [facility] [place] [address] * Potassium (07/24/2017 7:28 AM EDT) Potassium 4.1 3.5 - 5.0 mmol/L [facility] Comment: Please note: ??Patients [...] MD CHEMISTRY ORDERABL ES Performing Organization Address [facility] de Phone Number [facility] [place] [address] * POCT Glucose (07/24/2017 3:42 AM EDT) [facility] Glucose, POC 91 65 - 199 mg/dL [facility] Comment: Supplemental ranges: <140 mg/dL before meals <180 mg/dL all other times of the day Blood specimen (specimen) 07/24/2017 3:42 AM EDT 07/24/2017 3:42 AM EDT Sriram Contreras MD POINT OF CARE TEST ORDERABLES Performing Organization Address [facility] Co de Phone Number [facility] [place] [address] * Scan, Peripheral Blood (07/24/2017 1:00 AM EDT) Plat estimate Normal [facility] RBC Morphology Normal [facility] Blood specimen (specimen) Venous Draw / Unknown 07/24/2017 1:00 AM EDT 07/24/2017 1:15 AM EDT Narrative Resulting Agency Comment Spec In Lab Sriram Contreras MD HEMATOLOGY ORDERAB LES Performing Organization Address City/[facility]/[place] [address] * (ABNORMAL) Differential, Automated (07/24/2017 1:00 AM EDT) Neutrophil % 69.9 % [facility] Neutrophil Absolute 9.34(H) 1.70 - 6.10 x10(3)/mc L [facility] Lymph % 13.7 % [facility] Lymphocytes Abs 1.8 0.9 - 3.2 x10(3)/ L [facility] Monocyte % 8.1 % [facility] Monocyte Abs 1.1(H) 0.3 - 0.9 x10(3)/mc L [facility] Eos % 2.2 % [facility] Eosinophils Abs 0.3 0.0 - 0.4 x10(3)/ L [facility] Basophil % 0.7 % [facility] Baso Absolute 0.1 0.0 - 0.1 x10(3)/ L [facility] Immature Gran % 5.40 % [facility] Comment: Immature granulocytes(IG's)percentage and absolute count will include metamyelocytes, myelocytes, and promyelocytes. Blood smears from CBCs yielding IG's will be scanned manually for concordance. If this scan disagrees with the automated IG or if promyelocytes are noted, a manual differential will be performed. Immature Gran Absolute 0.72(H) 0.00 - 0.04 x10(3)/mc L [facility] Blood specimen (specimen) 07/24/2017 1:00 AM EDT 07/24/2017 1:15 AM EDT Narrative Resulting Agency Comment Spec In Lab Sriram Contreras MD HEMATOLOGY ORDERAB LES Performing Organization Address City/[facility]/ZIP [place] [address] * (ABNORMAL) Hemogram (07/24/2017 1:00 AM EDT) White Blood Cell 13.4(H) 4.0 - 9.5 x10(3)/[facility] Red Blood Cell 4.13(L) 4.58 - 5.54 x10(6)/[facility] Hemoglobin 12.7(L) 13.7 - 16.5 gm/dL [facility] Hematocrit 38.0(L) 40.5 - 48.5 % [facility] Mean Cell Volume 92.0 82.9 - 93.1 [facility] Mean Cell Hemoglobin 30.8 27.5 - 32.1 pg [facility] Mean Cell Hemoglobin Concentration 33.4 32.0 - 35.7 gm/dL [facility] Platelet 201 145 - 357 x10(3)/[facility] RDW Standard Deviation 45.5(H) 36.0 - 45.0 [facility] RDW coefficient of variation 13.4 11.4 - 13.8 % [facility] Mean Platelet Volume 10.1 7.6 - 12.9 [facility] NRBC% auto 0.0 % [facility] NRBC Absolute 0.000 0.000 - 0.000 x10(3)/[facility] Blood specimen (specimen) 07/24/2017 1:00 AM EDT 07/24/2017 1:15 AM EDT Narrative Resulting Agency Comment Spec In Lab Sriram Contreras MD HEMATOLOGY ORDERAB LES [facility] [place] [address] * (ABNORMAL) APTT (07/24/2017 1:00 AM EDT) [facility] Partial Thromboplastin Time 102(H) 25 - 35 sec [facility] Comment: The recommended therapeutic range for full dose, unfractionated heparin at [facility] is 80 ? 114 seconds. The use of the anti-Xa (heparin) level rather than the PTT is recommended for monitoring anticoagulation intensity in critically ill patients receiving unfractionated heparin by continuous IV infusion. Blood specimen (specimen) 07/24/2017 1:00 AM EDT 07/24/2017 1:14 AM EDT Narrative Resulting Agency Comment Spec In Lab Sriram Contreras MD HEMATOLOGY ORDERAB LES [facility] [place] [address] * (ABNORMAL) Basic Metabolic Panel (non-fasting) (07/24/2017 1:00 AM EDT) Glucose 103 65 - 199 mg/dL [facility] Comment:Diabetes: >=200 mg/d L plus symptoms Blood Urea Nitrogen 17 10 - 20 mg/dL [facility] Creatinine 0.70(L) 0.80 - 1.50 mg/dL [facility] Comment: Please note that the pediatric reference intervals supplied above were not validated at [facility]. Results from pediatric patients should be interpreted in conjunction to the patient's age, height and muscle mass. Sodium 143 135 - 145 mmol/L [facility] Potassium 4.0 3.5 - 5.0 mmol/L [facility] Comment: Please note: ??Patients with WBC >100,000 may have falsely elevated Potassium levels. ??For accurate Potassium quantification in these patients send serum separator tube (gold top) for subsequent determinations. ??Contact the Clinical Chemistry Laboratory if there are any questions. Chloride 104 98 - 107 mmol/L [facility] Carbon Dioxide 27 22 - 31 mmol/L [facility] Anion Gap 12 5 - 15 mmol/L [facility] Calcium 8.7 8.5 - 10.5 mg/dL [facility] Est Glomerular Filtration Rate >60 >=60 [facility] Comment: This estimated GFR [...] the following links into your internet browser. [email or web address] Blood specimen (specimen) 07/24/2017 1:00 AM EDT 07/24/2017 1:14 AM EDT Narrative Resulting Agency Comment Spec In Lab Sriram Contreras MD CHEMISTRY ORDERABL ES Performing Organization Address [facility] Co de Phone Number [facility] [place] [address] * POCT Glucose (07/23/2017 11:53 PM EDT) Glucose, POC 95 65 - 199 mg/dL [facility] Comment: Supplemental ranges: <140 mg/dL before meals <180 mg/dL all other times of the day Blood specimen (specimen) 07/23/2017 11:53 PM EDT 07/23/2017 11:53 PM EDT Sriram Contreras MD POINT OF CARE TEST ORDERABLES Performing Organization Address [facility] Co de Phone Number [facility] [place] [address] * POCT Glucose (07/23/2017 7:52 PM EDT) Glucose, POC 91 65 - 199 mg/dL [facility] Comment: Supplemental ranges: <140 mg/dL before meals <180 mg/dL all other times of the day Blood specimen (specimen) 07/23/2017 7:52 PM EDT 07/23/2017 7:52 PM EDT Sriram Contreras MD POINT OF CARE TEST ORDERABLES Performing Organization Address [facility] Co de Phone Number [facility] [place] [address] * POCT Glucose (07/23/2017 2:56 PM EDT) Glucose, POC 115 65 - 199 mg/dL [facility] Comment: Supplemental ranges: <140 mg/dL before meals <180 mg/dL all other times of the day Blood specimen (specimen) 07/23/2017 2:56 PM EDT 07/23/2017 2:56 PM EDT Sriram Contreras MD POINT OF CARE TEST ORDERABLES Performing Organization Address [facility] de Phone Number [facility] [place] [address] * (ABNORMAL) APTT (07/23/2017 2:55 PM EDT) [facility] Partial Thromboplastin Time 101(H) 25 - 35 sec [facility] Comment: The recommended therapeutic range for full dose, unfractionated heparin at [facility] is 80 ? 114 seconds. The use of the anti-Xa (heparin) level rather than the PTT is recommended for monitoring anticoagulation intensity in critically ill patients receiving unfractionated heparin by continuous IV infusion. Blood specimen (specimen) 07/23/2017 2:55 PM EDT 07/23/2017 3:04 PM EDT Narrative Resulting Agency Comment Spec In Lab Sriram Contreras MD HEMATOLOGY ORDERAB LES Performing Organization Address [facility] Co de Phone Number [facility] [place] [address] * POCT Glucose (07/23/2017 12:07 PM EDT) Glucose, POC 97 65 - 199 mg/dL [facility] Comment: Supplemental ranges: <140 mg/dL before meals <180 mg/dL all other times of the day Blood specimen (specimen) 07/23/2017 12:07 PM EDT 07/23/2017 12:07 PM EDT Sriram Contreras MD POINT OF CARE TEST ORDERABLES Performing Organization Address [facility] de Phone Number [facility] [place] [address] * (ABNORMAL) APTT (07/23/2017 8:27 AM EDT) [facility] Partial Thromboplastin Time 95(H) 25 - 35 sec [facility] Comment: The recommended therapeutic range for full dose, unfractionated heparin at [facility] is 80 ? 114 seconds. The use of the anti-Xa (heparin) level rather than the PTT is recommended for monitoring anticoagulation intensity in critically ill patients receiving unfractionated heparin by continuous IV infusion. Blood specimen (specimen) 07/23/2017 8:27 AM EDT 07/23/2017 8:51 AM EDT Narrative Resulting Agency Comment Spec In Lab Sriram Contreras MD HEMATOLOGY ORDERAB LES Performing Organization Address [facility] de Phone Number [facility] [place] [address] * POCT Glucose (07/23/2017 8:02 AM EDT) [facility] Glucose, POC 103 65 - 199 mg/dL [facility] Comment: Supplemental ranges: <140 mg/dL before meals <180 mg/dL all other times of the day Blood specimen (specimen) 07/23/2017 8:02 AM EDT 07/23/2017 8:02 AM EDT Sriram Contreras MD POINT OF CARE TEST ORDERABLES Performing Organization Address [facility] de Phone Number [facility] [place] [address] * (ABNORMAL) BLOOD GAS 2 ARTERIAL (07/23/2017 6:32 AM EDT) [facility] pH, Arterial 7.41 7.35 - 7.45 [facility] PCO2, Arterial 37 35 - 45 mmHg [facility] PO2, Arterial 60(L) 85 - 104 mmHg [facility] Bicarbonate, Arterial 22.6 20.0 - 26.0 mmol/L [facility] Base Excess, Arterial -2.0 -3.0 - 3.0 mmol/L [facility] Hgb Blood Gas 12.7(L) 13.7 - 16.5 gm/dL [facility] Oxyhemoglobin, Arterial 90.3(L) 94.0 - 97.0 % [facility] Carboxyhemoglob in, Arterial 0.3 % [facility] Comment: Nonsmokers: 0.5-1.5% COHB Smokers: Variable, but usually less than 10% Toxic: 20-30% COHB Lethal: Greater than 60% COHB Methemoglobin, Arterial 0.5 <=1.5 % [facility] Na Whole Blood 138 135 - 145 mmol/L [facility] K Whole Blood 3.7 3.5 - 5.0 mmol/L [facility] Comment: Please note: Patients with WBC >100,000 may have falsely elevated Potassium levels. Contact the Clinical Chemistry Laboratory if there are any questions. ICa Whole Blood 1.15(L) 1.15 - 1.33 mmol/L [facility] Comment: Note: ??Total bilirubin higher than 20 mg/dL may lead to falsely low ionized calcium. CL Whole Blood 109(H) 98 - 107 mmol/L [facility] Gluc Whole Bld 122 65 - 199 mg/dL [facility] Comment:Diabetes: >=200 mg/d L plus symptoms. Lactate WB 1.4 0.5 - 2.2 mmol/L [facility] FIO2 Art 30 % [facility] PF Ratio Art 200 [facility] Blood specimen (specimen) 07/23/2017 6:32 AM EDT 07/23/2017 6:32 AM EDT Sriram Contreras MD POINT OF CARE TEST ORDERABLES Performing Organization Address [facility] de Phone Number [facility] [place] [address] * Potassium (07/23/2017 4:15 AM EDT) [facility] Potassium 4.1 3.5 - 5.0 mmol/L [facility] Comment: Please note: ??Patients [...] MD CHEMISTRY ORDERABL ES Performing Organization Address [facility] de Phone Number [facility] [place] [address] * POCT Glucose (07/23/2017 3:50 AM EDT) [facility] Glucose, POC 126 65 - 199 mg/dL [facility] Comment: Supplemental ranges: <140 mg/dL before meals <180 mg/dL all other times of the day Blood specimen (specimen) 07/23/2017 3:50 AM EDT 07/23/2017 3:50 AM EDT Sriram Contreras MD POINT OF CARE TEST ORDERABLES Performing Organization Address [facility] Co de Phone Number [facility] [place] [address] * (ABNORMAL) APTT (07/23/2017 1:53 AM EDT) [facility] Partial Thromboplastin Time 119(H) 25 - 35 sec [facility] Comment: The recommended therapeutic range for full dose, unfractionated heparin at [facility] is 80 ? 114 seconds. The use of the anti-Xa (heparin) level rather than the PTT is recommended for monitoring anticoagulation intensity in critically ill patients receiving unfractionated heparin by continuous IV infusion. Blood specimen (specimen) 07/23/2017 1:53 AM EDT 07/23/2017 2:01 AM EDT Narrative Resulting Agency Comment Spec In Lab Sriram Contreras MD HEMATOLOGY ORDERAB LES [facility] [place] [address] * (ABNORMAL) Differential, Automated (07/23/2017 12:45 AM EDT) Neutrophil % 63.2 % [facility] Neutrophil Absolute 6.47(H) 1.70 - 6.10 x10(3)/mc L [facility] Lymph % 20.9 % [facility] Lymphocytes Abs 2.1 0.9 - 3.2 x10(3)/mc L [facility] Monocyte % 7.6 % [facility] Monocyte Abs 0.8 0.3 - 0.9 x10(3)/mc L [facility] Eos % 2.8 % [facility] Eosinophils Abs 0.3 0.0 - 0.4 x10(3)/mc L [facility] Basophil % 0.7 % [facility] Baso Absolute 0.1 0.0 - 0.1 x10(3)/mc L [facility] Immature Gran % 4.80 % [facility] Comment: Immature granulocytes(IG's)percentage and absolute count will include metamyelocytes, myelocytes, and promyelocytes. Blood smears from CBCs yielding IG's will be scanned manually for concordance. If this scan disagrees with the automated IG or if promyelocytes are noted, a manual differential will be performed. Immature Gran Absolute 0.49(H) 0.00 - 0.04 x10(3)/mc L [facility] Blood specimen (specimen) 07/23/2017 12:45 AM EDT 07/23/2017 12:51 AM EDT Narrative Resulting Agency Comment Spec In Lab Sriram Contreras MD HEMATOLOGY ORDERAB LES [facility] [place] [address] * (ABNORMAL) Hemogram (07/23/2017 12:45 AM EDT) White Blood Cell 10.2(H) 4.0 - 9.5 x10(3)/mc L [facility] Red Blood Cell 3.62(L) 4.58 - 5.54 x10(6)/mc L [facility] Hemoglobin 11.1(L) 13.7 - 16.5 gm/dL [facility] Hematocrit 33.5(L) 40.5 - 48.5 % [facility] Mean Cell Volume 92.5 82.9 - 93.1 fL [facility] Mean Cell Hemoglobin 30.7 27.5 - 32.1 pg [facility] Mean Cell Hemoglobin Concentration 33.1 32.0 - 35.7 gm/dL [facility] Platelet 165 145 - 357 x10(3)/mc L [facility] RDW Standard Deviation 46.6(H) 36.0 - 45.0 fL [facility] RDW coefficient of variation 13.7 11.4 - 13.8 % [facility] Mean Platelet Volume 9.9 7.6 - 12.9 [facility] NRBC% auto 0.0 % [facility] NRBC Absolute 0.000 0.000 - 0.000 x10(3)/mc L [facility] Blood specimen (specimen) 07/23/2017 12:45 AM EDT 07/23/2017 12:51 AM EDT Narrative Resulting Agency Comment Spec In Lab Sriram Contreras MD HEMATOLOGY ORDERAB LES [facility] [place] [address] * (ABNORMAL) Basic Metabolic Panel (non-fasting) (07/23/2017 12:45 AM EDT) Glucose 127 65 - 199 mg/dL [facility] Comment:Diabetes: >=200 mg/d L plus symptoms Blood Urea Nitrogen 20 10 - 20 mg/dL [facility] Creatinine 0.65(L) 0.80 - 1.50 mg/dL [facility] Comment: Please note that the pediatric reference intervals supplied above were not validated at [facility]. Results from pediatric patients should be interpreted in conjunction to the patient's age, height and muscle mass. Sodium 142 135 - 145 mmol/L [facility] Potassium 3.7 3.5 - 5.0 mmol/L [facility] Comment: Please note: ??Patients with WBC >100,000 may have falsely elevated Potassium levels. ??For accurate Potassium quantification in these patients send serum separator tube (gold top) for subsequent determinations. ??Contact the Clinical Chemistry Laboratory if there are any questions. Chloride 105 98 - 107 mmol/L [facility] Carbon Dioxide 26 22 - 31 mmol/L [facility] Anion Gap 11 5 - 15 mmol/L [facility] Calcium 8.3(L) 8.5 - 10.5 mg/dL [facility] Est Glomerular Filtration Rate >60 >=60 [facility] Comment: This estimated GFR [...] the following links into your internet browser. [email or web address] Blood specimen (specimen) 07/23/2017 12:45 AM EDT 07/23/2017 12:51 AM EDT Narrative Resulting Agency Comment Spec In Lab Sriram Contreras MD CHEMISTRY ORDERABL ES Performing Organization Address [facility] Co de Phone Number [facility] [place] [address] * POCT Glucose (07/22/2017 11:59 PM EDT) Glucose, POC 113 65 - 199 mg/dL [facility] Comment: Supplemental ranges: <140 mg/dL before meals <180 mg/dL all other times of the day Blood specimen (specimen) 07/22/2017 11:59 PM EDT 07/22/2017 11:59 PM EDT Sriram Contreras MD POINT OF CARE TEST ORDERABLES Performing Organization Address [facility] Co de Phone Number [facility] [place] [address] * POCT Glucose (07/22/2017 8:07 PM EDT) Glucose, POC 111 65 - 199 mg/dL [facility] Comment: Supplemental ranges: <140 mg/dL before meals <180 mg/dL all other times of the day Blood specimen (specimen) 07/22/2017 8:07 PM EDT 07/22/2017 8:07 PM EDT Sriram Contreras MD POINT OF CARE TEST ORDERABLES Performing Organization Address [facility] Co de Phone Number [facility] [place] [address] * POCT Glucose (07/22/2017 4:00 PM EDT) Glucose, POC 112 65 - 199 mg/dL [facility] Comment: Supplemental ranges: <140 mg/dL before meals <180 mg/dL all other times of the day Blood specimen (specimen) 07/22/2017 4:00 PM EDT 07/22/2017 4:00 PM EDT Sriram Contreras MD POINT OF CARE TEST ORDERABLES Performing Organization Address [facility] de Phone Number [facility] [place] [address] * (ABNORMAL) APTT (07/22/2017 4:00 PM EDT) Partial Thromboplastin Time 92(H) 25 - 35 sec [facility] Comment: The recommended therapeutic range for full dose, unfractionated heparin at [facility] is 80 ? 114 seconds. The use of the anti-Xa (heparin) level rather than the PTT is recommended for monitoring anticoagulation intensity in critically ill patients receiving unfractionated heparin by continuous IV infusion. Blood specimen (specimen) 07/22/2017 4:00 PM EDT 07/22/2017 4:18 PM EDT Narrative Resulting Agency Comment Spec In Lab Sriram Contreras MD HEMATOLOGY ORDERAB LES Performing Organization Address [facility] de Phone Number [facility] [place] [address] * POCT Glucose (07/22/2017 11:45 AM EDT) [facility] Signature Glucose, POC 111 65 - 199 mg/dL [facility] Comment: Supplemental ranges: <140 mg/dL before meals <180 mg/dL all other times of the day Blood specimen (specimen) 07/22/2017 11:45 AM EDT 07/22/2017 11:45 AM EDT Sriram Contreras MD POINT OF CARE TEST ORDERABLES Performing Organization Address [facility] Co de Phone Number [facility] [place] [place] [address] * (ABNORMAL) APTT (07/22/2017 8:30 AM EDT) Partial Thromboplastin Time 83(H) 25 - 35 sec [facility] Comment: The recommended therapeutic range for full dose, unfractionated heparin at [facility] is 80 ? 114 seconds. The use of the anti-Xa (heparin) level rather than the PTT is recommended for monitoring anticoagulation intensity in critically ill patients receiving unfractionated heparin by continuous IV infusion. Blood specimen (specimen) 07/22/2017 8:30 AM EDT 07/22/2017 8:39 AM EDT Narrative Resulting Agency Comment Spec In Lab Sriram Contreras MD HEMATOLOGY ORDERAB LES Performing Organization Address [facility] Co de Phone Number [facility] [place] [address] * POCT Glucose (07/22/2017 8:28 AM EDT) Glucose, POC 118 65 - 199 mg/dL [facility] Comment: Supplemental ranges: <140 mg/dL before meals <180 mg/dL all other times of the day Blood specimen (specimen) 07/22/2017 8:28 AM EDT 07/22/2017 8:28 AM EDT Sriram Contreras MD POINT OF CARE TEST ORDERABLES Performing Organization Address [facility] Co de Phone Number [facility] [place] [address] * (ABNORMAL) BLOOD GAS 2 ARTERIAL (07/22/2017 8:27 AM EDT) pH, Arterial 7.42 7.35 - 7.45 [facility] PCO2, Arterial 39 35 - 45 mmHg [facility] PO2, Arterial 78(L) 85 - 104 mmHg [facility] Bicarbonate, Arterial 24.8 20.0 - 26.0 mmol/L [facility] Base Excess, Arterial 0.3 -3.0 - 3.0 mmol/L [facility] Hgb Blood Gas 13.4(L) 13.7 - 16.5 gm/dL [facility] Oxyhemoglobin, Arterial 94.2 94.0 - 97.0 % [facility] Carboxyhemoglob in, Arterial 0.3 % [facility] Comment: Nonsmokers: 0.5-1.5% COHB Smokers: Variable, but usually less than 10% Toxic: 20-30% COHB Lethal: Greater than 60% COHB Methemoglobin, Arterial 0.6 <=1.5 % [facility] Na Whole Blood 140 135 - 145 mmol/L [facility] K Whole Blood 3.8 3.5 - 5.0 mmol/L [facility] Comment: Please note: Patients with WBC >100,000 may have falsely elevated Potassium levels. Contact the Clinical Chemistry Laboratory if there are any questions. ICa Whole Blood 1.21 1.15 - 1.33 mmol/L [facility] Comment: Note: ??Total bilirubin higher than 20 mg/dL may lead to falsely low ionized calcium. CL Whole Blood 107 98 - 107 mmol/L [facility] Gluc Whole Bld 130 65 - 199 mg/dL [facility] Comment:Diabetes: >=200 mg/d L plus symptoms. Lactate WB 1.6 0.5 - 2.2 mmol/L [facility] FIO2 Art 40 % [facility] PF Ratio Art 195 [facility] Blood specimen (specimen) 07/22/2017 8:27 AM EDT 07/22/2017 8:27 AM EDT Sriram Contreras MD POINT OF CARE TEST ORDERABLES Performing Organization Address City/State/[facility] Co de Phone Number [facility] [place] [address] * (ABNORMAL) Differential, Automated (07/22/2017 3:10 AM EDT) Neutrophil % 72.0 % [facility] Neutrophil Absolute 8.75(H) 1.70 - 6.10 x10(3)/mc L [facility] Lymph % 15.0 % [facility] Lymphocytes Abs 1.8 0.9 - 3.2 x10(3)/mc L [facility] Monocyte % 8.0 % [facility] Monocyte Abs 1.0(H) 0.3 - 0.9 x10(3)/[facility] Eos % 2.4 % [facility] Eosinophils Abs 0.3 0.0 - 0.4 x10(3)/[facility] Basophil % 0.3 % [facility] Baso Absolute 0.0 0.0 - 0.1 x10(3)/[facility] Immature Gran % 2.30 % [facility] Comment: Immature granulocytes(IG's)percentage and absolute count will include metamyelocytes, myelocytes, and promyelocytes. Blood smears from CBCs yielding IG's will be scanned manually for concordance. If this scan disagrees with the automated IG or if promyelocytes are noted, a manual differential will be performed. Immature Gran Absolute 0.28(H) 0.00 - 0.04 x10(3)/[facility] Blood specimen (specimen) 07/22/2017 3:10 AM EDT 07/22/2017 3:15 AM EDT Narrative Resulting Agency Comment Spec In Lab Sriram Contreras MD HEMATOLOGY ORDERAB LES Performing Organization Address City/State/[facility] Co de Phone Number [facility] [place] [address] * (ABNORMAL) Hemogram (07/22/2017 3:10 AM EDT) White Blood Cell 12.2(H) 4.0 - 9.5 x10(3)/[facility] Red Blood Cell 4.05(L) 4.58 - 5.54 x10(6)/[facility] Hemoglobin 12.5(L) 13.7 - 16.5 gm/dL [facility] Hematocrit 37.9(L) 40.5 - 48.5 % [facility] Mean Cell Volume 93.6(H) 82.9 - 93.1 fL [facility] Mean Cell Hemoglobin 30.9 27.5 - 32.1 pg [facility] Mean Cell Hemoglobin Concentration 33.0 32.0 - 35.7 gm/dL [facility] Platelet 168 145 - 357 x10(3)/mc L [facility] RDW Standard Deviation 48.9(H) 36.0 - 45.0 fL [facility] RDW coefficient of variation 14.1(H) 11.4 - 13.8 % [facility] Mean Platelet Volume 10.2 7.6 - 12.9 fL [facility] NRBC% auto 0.0 % [facility] NRBC Absolute 0.000 0.000 - 0.000 x10(3)/mc L [facility] Blood specimen (specimen) 07/22/2017 3:10 AM EDT 07/22/2017 3:15 AM EDT Narrative Resulting Agency Comment Spec In Lab Sriram Contreras MD HEMATOLOGY ORDERAB LES Performing Organization Address [facility] de Phone Number [facility] [place] [address] * (ABNORMAL) APTT (07/22/2017 3:10 AM EDT) [facility] Partial Thromboplastin Time 89(H) 25 - 35 sec [facility] Comment: The recommended therapeutic range for full dose, unfractionated heparin at [facility] is 80 ? 114 seconds. The use of the anti-Xa (heparin) level rather than the PTT is recommended for monitoring anticoagulation intensity in critically ill patients receiving unfractionated heparin by continuous IV infusion. Blood specimen (specimen) 07/22/2017 3:10 AM EDT 07/22/2017 3:15 AM EDT Narrative Resulting Agency Comment Spec In Lab Sriram Contreras MD HEMATOLOGY ORDERAB LES Performing Organization Address [facility] Co de Phone Number [facility] [place] [address] * (ABNORMAL) Basic Metabolic Panel (non-fasting) (07/22/2017 3:10 AM EDT) Glucose 121 65 - 199 mg/dL [facility] Comment:Diabetes: >=200 mg/d L plus symptoms Blood Urea Nitrogen 23(H) 10 - 20 mg/dL [facility] Creatinine 0.76(L) 0.80 - 1.50 mg/dL [facility] Comment: Please note that the pediatric reference intervals supplied above were not validated at [facility]. Results from pediatric patients should be interpreted in conjunction to the patient's age, height and muscle mass. Sodium 144 135 - 145 mmol/L [facility] Potassium 3.9 3.5 - 5.0 mmol/L [facility] Comment: Please note: ??Patients with WBC >100,000 may have falsely elevated Potassium levels. ??For accurate Potassium quantification in these patients send serum separator tube (gold top) for subsequent determinations. ??Contact the Clinical Chemistry Laboratory if there are any questions. Chloride 106 98 - 107 mmol/L [facility] Carbon Dioxide 25 22 - 31 mmol/L [facility] Anion Gap 13 5 - 15 mmol/L [facility] Calcium 8.3(L) 8.5 - 10.5 mg/dL [facility] Est Glomerular Filtration Rate >60 >=60 [facility] Comment: This estimated GFR [...] the following links into your internet browser. [email or web address] Blood specimen (specimen) 07/22/2017 3:10 AM EDT 07/22/2017 3:15 AM EDT Narrative Resulting Agency Comment Spec In Lab Sriram Contreras MD CHEMISTRY ORDERABL ES Performing Organization Address [facility] Co de Phone Number [facility] [place] [address] * POCT Glucose (07/22/2017 3:08 AM EDT) Glucose, POC 109 65 - 199 mg/dL [facility] Comment: Supplemental ranges: <140 mg/dL before meals <180 mg/dL all other times of the day Blood specimen (specimen) 07/22/2017 3:08 AM EDT 07/22/2017 3:08 AM EDT Sriram Contreras MD POINT OF CARE TEST ORDERABLES Performing Organization Address [facility] Co de Phone Number [facility] [place] [address] * POCT Glucose (07/21/2017 11:52 PM EDT) Glucose, POC 135 65 - 199 mg/dL [facility] Comment: Supplemental ranges: <140 mg/dL before meals <180 mg/dL all other times of the day Blood specimen (specimen) 07/21/2017 11:52 PM EDT 07/21/2017 11:52 PM EDT Sriram Contreras MD POINT OF CARE TEST ORDERABLES Performing Organization Address [facility] Co de Phone Number [facility] [place] [address] * EKG 12 Lead (07/21/2017 10:42 PM EDT) Ventricular rate 75 BPM MUSE SYSTEM Atrial Rate 258 BPM MUSE SYSTEM QRS Duration 86 ms MUSE SYSTEM Q-T Interval 400 ms [facility]USE SYSTEM QTC Calculated (Bezet) 446 ms MUSE SYSTEM Calculated R [place] 61 degrees MUSE SYSTEM Calculated T [place] 136 degrees MUSE SYSTEM INTERPRETATION Atrial fibrillation [...] EDT) Magnesium 0.80 0.69 - 1.07 mmol/L [facility] Blood specimen (specimen) 07/21/2017 10:35 PM EDT 07/21/2017 10:40 PM EDT Narrative Resulting Agency Comment Spec In Lab Sriram Contreras MD CHEMISTRY ORDERABL ES Performing Organization Address [facility] Co de Phone Number [facility] [place] [address] * (ABNORMAL) Basic Metabolic Panel (non-fasting) (07/21/2017 10:35 PM EDT) Glucose 135 65 - 199 mg/dL [facility] Comment:Diabetes: >=200 mg/d L plus symptoms Blood Urea Nitrogen 23(H) 10 - 20 mg/dL [facility] Creatinine 0.88 0.80 - 1.50 mg/dL [facility] Comment: Please note that the pediatric reference intervals supplied above were not validated at [facility]. Results from pediatric patients should be interpreted in conjunction to the patient's age, height and muscle mass. Sodium 144 135 - 145 mmol/L [facility] Potassium 4.0 3.5 - 5.0 mmol/L [facility] Comment: Please note: ??Patients with WBC >100,000 may have falsely elevated Potassium levels. ??For accurate Potassium quantification in these patients send serum separator tube (gold top) for subsequent determinations. ??Contact the Clinical Chemistry Laboratory if there are any questions. Chloride 107 98 - 107 mmol/L [facility] Carbon Dioxide 25 22 - 31 mmol/L [facility] Anion Gap 12 5 - 15 mmol/L [facility] Calcium 8.7 8.5 - 10.5 mg/dL [facility] Est Glomerular Filtration Rate >60 >=60 [facility] Comment: This estimated GFR [...] the following links into your internet browser. [email or web address] Blood specimen (specimen) 07/21/2017 10:35 PM EDT 07/21/2017 10:40 PM EDT Narrative Resulting Agency Comment Spec In Lab Sriram Contreras MD CHEMISTRY ORDERABL ES Performing Organization Address [facility] Co de Phone Number [facility] [place] [address] * (ABNORMAL) APTT (07/21/2017 9:10 PM EDT) [facility] Partial Thromboplastin Time 87(H) 25 - 35 sec [facility] Comment: The recommended therapeutic range for full dose, unfractionated heparin at [facility] is 80 ? 114 seconds. The use of the anti-Xa (heparin) level rather than the PTT is recommended for monitoring anticoagulation intensity in critically ill patients receiving unfractionated heparin by continuous IV infusion. Blood specimen (specimen) 07/21/2017 9:10 PM EDT 07/21/2017 9:17 PM EDT Narrative Resulting Agency Comment Spec In Lab Sriram Contreras MD HEMATOLOGY ORDERAB LES Performing Organization Address [facility]/ZIP Co de Phone Number [facility] [place] [address] * POCT Glucose (07/21/2017 7:49 PM EDT) Glucose, POC 117 65 - 199 mg/dL [facility] Comment: Supplemental ranges: <140 mg/dL before meals <180 mg/dL all other times of the day Blood specimen (specimen) 07/21/2017 7:49 PM EDT 07/21/2017 7:49 PM EDT Sriram Contreras MD POINT OF CARE TEST ORDERABLES Performing Organization Address [facility] Co de Phone Number [facility] [place] [address] * POCT Glucose (07/21/2017 4:10 PM EDT) Glucose, POC 116 65 - 199 mg/dL [facility] Comment: Supplemental ranges: <140 mg/dL before meals <180 mg/dL all other times of the day Blood specimen (specimen) 07/21/2017 4:10 PM EDT 07/21/2017 4:10 PM EDT Sriram Contreras MD POINT OF CARE TEST ORDERABLES Performing Organization Address [facility] de Phone Number [facility] [place] [address] * (ABNORMAL) APTT (07/21/2017 4:10 PM EDT) Partial Thromboplastin Time 78(H) 25 - 35 sec [facility] Comment: The recommended therapeutic range for full dose, unfractionated heparin at [facility] is 80 ? 114 seconds. The use of the anti-Xa (heparin) level rather than the PTT is recommended for monitoring anticoagulation intensity in critically ill patients receiving unfractionated heparin by continuous IV infusion. Blood specimen (specimen) 07/21/2017 4:10 PM EDT 07/21/2017 4:28 PM EDT Narrative Resulting Agency Comment Spec In Lab Sriram Contreras MD HEMATOLOGY ORDERAB LES Performing Organization Address [facility] Co de Phone Number [facility] [place] [address] * POCT Glucose (07/21/2017 12:04 PM EDT) Pathologist [facility] Glucose, POC 138 65 - 199 mg/dL [facility] Comment: Supplemental ranges: <140 mg/dL before meals <180 mg/dL all other times of the day Blood specimen (specimen) 07/21/2017 12:04 PM EDT 07/21/2017 12:04 PM EDT Sriram Contreras MD POINT OF CARE TEST ORDERABLES Performing Organization Address [facility] de Phone Number [facility] [place] [address] * C. Difficile Screen (07/21/2017 9:00 AM EDT) [facility] C Diff Interp Negative Negative [facility] Comment: C. diff ??Negative Clostridium [...] - GEN ERAL ORDERABLES Performing Organization Address [facility] Co de Phone Number [facility] [place] [address] * Potassium (07/21/2017 8:30 AM EDT) [facility] Potassium 3.8 3.5 - 5.0 mmol/L [facility] Comment: Please note: ??Patients [...] MD CHEMISTRY ORDERABL ES Performing Organization Address [facility] de Phone Number [facility] [place] [address] * (ABNORMAL) APTT (07/21/2017 8:30 AM EDT) Partial Thromboplastin Time 63(H) 25 - 35 sec [facility] Comment: The recommended therapeutic range for full dose, unfractionated heparin at [facility] is 80 ? 114 seconds. The use of the anti-Xa (heparin) level rather than the PTT is recommended for monitoring anticoagulation intensity in critically ill patients receiving unfractionated heparin by continuous IV infusion. Blood specimen (specimen) 07/21/2017 8:30 AM EDT 07/21/2017 8:40 AM EDT Narrative Resulting Agency Comment Spec In Lab Sriram Contreras MD HEMATOLOGY ORDERAB LES Performing Organization Address [facility] Phone Number [facility] [place] [address] * POCT Glucose (07/21/2017 8:24 AM EDT) Glucose, POC 131 65 - 199 mg/dL [facility] Comment: Supplemental ranges: <140 mg/dL before meals <180 mg/dL all other times of the day Blood specimen (specimen) 07/21/2017 8:24 AM EDT 07/21/2017 8:24 AM EDT Sriram Contreras MD POINT OF CARE TEST ORDERABLES Performing Organization Address [facility] Co de Phone Number [facility] [place] [address] * (ABNORMAL) BLOOD GAS 2 ARTERIAL (07/21/2017 7:42 AM EDT) pH, Arterial 7.44 7.35 - 7.45 [facility] PCO2, Arterial 37 35 - 45 mmHg [facility] PO2, Arterial 72(L) 85 - 104 mmHg [facility] Bicarbonate, Arterial 24.5 20.0 - 26.0 mmol/L [facility] Excess, Arterial 0.3 -3.0 - 3.0 mmol/L [facility] Hgb Blood Gas 14.0 13.7 - 16.5 gm/dL [facility] Oxyhemoglobin, Arterial 93.8(L) 94.0 - 97.0 % [facility] Carboxyhemoglob in, Arterial 0.3 % [facility] Comment: Nonsmokers: 0.5-1.5% COHB Smokers: Variable, but usually less than 10% Toxic: 20-30% COHB Lethal: Greater than 60% COHB Methemoglobin, Arterial 0.5 <=1.5 % [facility] Na Whole Blood 143 135 - 145 mmol/L [facility] K Whole Blood 4.0 3.5 - 5.0 mmol/L [facility] Comment: Please note: Patients with WBC >100,000 may have falsely elevated Potassium levels. Contact the Clinical Chemistry Laboratory if there are any questions. ICa Whole Blood 1.22 1.15 - 1.33 mmol/L [facility] Comment: Note: ??Total bilirubin higher than 20 mg/dL may lead to falsely low ionized calcium. CL Whole Blood 111(H) 98 - 107 mmol/L [facility] Gluc Whole Bld 148 65 - 199 mg/dL [facility] Comment:Diabetes: >=200 mg/d L plus symptoms. Lactate WB 1.5 0.5 - 2.2 mmol/L [facility] FIO2 Art 40 % [facility] PF Ratio Art 180 [facility] Blood specimen (specimen) 07/21/2017 7:42 AM EDT 07/21/2017 7:42 AM EDT Sriram Contreras MD POINT OF CARE TEST ORDERABLES Performing Organization Address [facility] de Phone Number [facility] [place] [address] * POCT Glucose (07/21/2017 3:21 AM EDT) Glucose, POC 116 65 - 199 mg/dL [facility] Comment: Supplemental ranges: <140 mg/dL before meals <180 mg/dL all other times of the day Blood specimen (specimen) 07/21/2017 3:21 AM EDT 07/21/2017 3:21 AM EDT Sriram Contreras MD POINT OF CARE TEST ORDERABLES Performing Organization Address [facility] de Phone Number [facility] [place] [address] * Potassium (07/21/2017 3:20 AM EDT) Potassium 4.0 3.5 - 5.0 mmol/L [facility] Comment: Please note: ??Patients [...] MD CHEMISTRY ORDERABL ES Performing Organization Address [facility] de Phone Number [facility] [place] [address] * (ABNORMAL) APTT (07/21/2017 1:05 AM EDT) Partial Thromboplastin Time 42(H) 25 - 35 sec [facility] Comment: The recommended therapeutic range for full dose, unfractionated heparin at [facility] is 80 ? 114 seconds. The use of the anti-Xa (heparin) level rather than the PTT is recommended for monitoring anticoagulation intensity in critically ill patients receiving unfractionated heparin by continuous IV infusion. Blood specimen (specimen) 07/21/2017 1:05 AM EDT 07/21/2017 1:08 AM EDT Narrative Resulting Agency Comment Spec In Lab Sriram Contreras MD HEMATOLOGY ORDERAB LES [facility] [place] [address] * (ABNORMAL) Differential, Automated (07/21/2017 12:25 AM EDT) Neutrophil % 75.8 % [facility] Neutrophil Absolute 7.59(H) 1.70 - 6.10 x10(3)/mc L [facility] Lymph % 12.8 % [facility] Lymphocytes Abs 1.3 0.9 - 3.2 x10(3)/mc L [facility] Monocyte % 9.0 % [facility] Monocyte Abs 0.9 0.3 - 0.9 x10(3)/mc L [facility] Eos % 1.1 % [facility] Eosinophils Abs 0.1 0.0 - 0.4 x10(3)/mc L [facility] Basophil % 0.3 % [facility] Baso Absolute 0.0 0.0 - 0.1 x10(3)/mc L [facility] Immature Gran % 1.00 % [facility] Comment: Immature granulocytes(IG's)percentage and absolute count will include metamyelocytes, myelocytes, and promyelocytes. Blood smears from CBCs yielding IG's will be scanned manually for concordance. If this scan disagrees with the automated IG or if promyelocytes are noted, a manual differential will be performed. Immature Gran Absolute 0.10(H) 0.00 - 0.04 x10(3)/mc L [facility] Blood specimen (specimen) 07/21/2017 12:25 AM EDT 07/21/2017 12:48 AM EDT Narrative Resulting Agency Comment Spec In Lab Sriram Contreras MD HEMATOLOGY ORDERAB LES Performing Organization Address City/State/[facility] Co de Phone Number [facility] [place] [address] * (ABNORMAL) Hemogram (07/21/2017 12:25 AM EDT) White Blood Cell 10.0(H) 4.0 - 9.5 x10(3)/[facility] Red Blood Cell 4.24(L) 4.58 - 5.54 x10(6)/[facility] Hemoglobin 13.2(L) 13.7 - 16.5 gm/dL [facility] Hematocrit 39.4(L) 40.5 - 48.5 % [facility] Mean Cell Volume 92.9 82.9 - 93.1 fL [facility] Mean Cell Hemoglobin 31.1 27.5 - 32.1 pg [facility] Mean Cell Hemoglobin Concentration 33.5 32.0 - 35.7 gm/dL [facility] Platelet 163 145 - 357 x10(3)/[facility] [facility] LABORATORY RDW Standard Deviation 48.0(H) 36.0 - 45.0 [facility] LABORATORY RDW coefficient of variation 14.1(H) 11.4 - 13.8 % [facility] Mean Platelet Volume 10.2 7.6 - 12.9 fL [facility] NRBC% auto 0.0 % [facility] LABORATORY NRBC Absolute 0.000 0.000 - 0.000 x10(3)/[facility] LABORATORY Blood specimen (specimen) 07/21/2017 12:25 AM EDT 07/21/2017 12:48 AM EDT Narrative Resulting Agency Comment Spec In Lab Sriram Contreras MD HEMATOLOGY ORDERAB LES [facility] [place] [address] * (ABNORMAL) Basic Metabolic Panel (non-fasting) (07/21/2017 12:25 AM EDT) Glucose 132 65 - 199 mg/dL [facility] Comment:Diabetes: >=200 mg/d L plus symptoms Blood Urea Nitrogen 22(H) 10 - 20 mg/dL [facility] Creatinine 0.79(L) 0.80 - 1.50 mg/dL [facility] Comment: Please note that the pediatric reference intervals supplied above were not validated at [facility]. Results from pediatric patients should be interpreted in conjunction to the patient's age, height and muscle mass. Sodium 146(H) 135 - 145 mmol/L [facility] Potassium 3.8 3.5 - 5.0 mmol/L [facility] Comment: Please note: ??Patients with WBC >100,000 may have falsely elevated Potassium levels. ??For accurate Potassium quantification in these patients send serum separator tube (gold top) for subsequent determinations. ??Contact the Clinical Chemistry Laboratory if there are any questions. Chloride 110(H) 98 - 107 mmol/L [facility] Carbon Dioxide 25 22 - 31 mmol/L [facility] Anion Gap 11 5 - 15 mmol/L [facility] Calcium 8.5 8.5 - 10.5 mg/dL [facility] Est Glomerular Filtration Rate >60 >=60 [facility]ORY Comment: This estimated GFR [...] the following links into your internet browser. [email or web address] Blood specimen (specimen) 07/21/2017 12:25 AM EDT 07/21/2017 12:48 AM EDT Narrative Resulting Agency Comment Spec In Lab Sriram Contreras MD CHEMISTRY ORDERABL ES [facility] [place] [address] * (ABNORMAL) BLOOD GAS 2 ARTERIAL (07/21/2017 12:21 AM EDT) pH, Arterial 7.44 7.35 - 7.45 [facility] PCO2, Arterial 37 35 - 45 mmHg [facility] PO2, Arterial 70(L) 85 - 104 mmHg [facility] Bicarbonate, Arterial 24.1 20.0 - 26.0 mmol/L [facility] Base Excess, Arterial 0.1 -3.0 - 3.0 mmol/L [facility] Hgb Blood Gas 14.3 13.7 - 16.5 gm/dL [facility] Oxyhemoglobin, Arterial 92.8(L) 94.0 - 97.0 % [facility] Carboxyhemoglob in, Arterial 0.0 % [facility] Comment: Nonsmokers: 0.5-1.5% COHB Smokers: Variable, but usually less than 10% Toxic: 20-30% COHB Lethal: Greater than 60% COHB Methemoglobin, Arterial 0.4 <=1.5 % [facility] Na Whole Blood 145 135 - 145 mmol/L [facility] K Whole Blood 3.9 3.5 - 5.0 mmol/L [facility] Comment: Please note: Patients with WBC >100,000 may have falsely elevated Potassium levels. Contact the Clinical Chemistry Laboratory if there are any questions. ICa Whole Blood 1.21 1.15 - 1.33 mmol/L [facility] Comment: Note: ??Total bilirubin higher than 20 mg/dL may lead to falsely low ionized calcium. CL Whole Blood 110(H) 98 - 107 mmol/L [facility] Gluc Whole Bld 132 65 - 199 mg/dL [facility] Comment:Diabetes: >=200 mg/d L plus symptoms. Lactate WB 1.1 0.5 - 2.2 mmol/L [facility] FIO2 Art 40 % [facility] PF Ratio Art 175 [facility] Temp Art 37.8 Celsius [facility] Blood specimen (specimen) 07/21/2017 12:21 AM EDT 07/21/2017 12:21 AM EDT Sriram Contreras MD POINT OF CARE TEST ORDERABLES Performing Organization Address [facility] Co de Phone Number [facility] [place] [address] * POCT Glucose (07/21/2017 12:00 AM EDT) Glucose, POC 119 65 - 199 mg/dL [facility] Comment: Supplemental ranges: <140 mg/dL before meals <180 mg/dL all other times of the day Blood specimen (specimen) 07/21/2017 07/21/2017 Sriram Contreras MD POINT OF CARE TEST ORDERABLES Performing Organization Address [facility]/ZIP Co de Phone Number [facility] [place] [address] * Potassium (07/20/2017 9:50 PM EDT) Potassium 4.1 3.5 - 5.0 mmol/L [facility] Comment: Please note: ??Patients [...] ORDERABL ES Performing Organization Address [facility] Co de Phone Number [facility] [place] [address] * EKG 12 Lead (07/20/2017 8:40 PM EDT) [facility] Ventricular rate 77 BPM MUSE SYSTEM Atrial Rate 394 BPM MUSE SYSTEM QRS Duration 86 ms MUSE SYSTEM Q-T Interval 396 ms MUSE SYSTEM QTC Calculated (Bezet) 448 ms MUSE SYSTEM Calculated R [place] 73 degrees MUSE SYSTEM Calculated T [place] 127 degrees MUSE SYSTEM INTERPRETATION Atrial fibrillation [...] ECG ORDERABLES Performing Organization Address [facility] de Phone Number MUSE SYSTEM * POCT Glucose (07/20/2017 7:28 PM EDT) [facility] Glucose, POC 126 65 - 199 mg/dL [facility] Comment: Supplemental ranges: <140 mg/dL before meals <180 mg/dL all other times of the day Blood specimen (specimen) 07/20/2017 7:28 PM EDT 07/20/2017 7:28 PM EDT Sriram Contreras MD POINT OF CARE TEST ORDERABLES Performing Organization Address [facility] Co de Phone Number [facility] [place] [address] * (ABNORMAL) Differential, Automated (07/20/2017 5:15 PM EDT) [facility] Neutrophil % 79.7 % [facility] Neutrophil Absolute 8.01(H) 1.70 - 6.10 x10(3)/[facility] LABORATORY Lymph % 10.4 % [facility] Lymphocytes Abs 1.0 0.9 - 3.2 x10(3)/[facility] LABORATORY Monocyte % 8.0 % [facility] Monocyte Abs 0.8 0.3 - 0.9 x10(3)/[facility] LABORATORY Eos % 0.7 % [facility] Eosinophils Abs 0.1 0.0 - 0.4 x10(3)/[facility] LABORATORY Basophil % 0.2 % [facility] Baso Absolute 0.0 0.0 - 0.1 x10(3)/[facility] LABORATORY Immature Gran % 1.00 % [facility] Comment: Immature granulocytes(IG's)percentage and absolute count will include metamyelocytes, myelocytes, and promyelocytes. Blood smears from CBCs yielding IG's will be scanned manually for concordance. If this scan disagrees with the automated IG or if promyelocytes are noted, a manual differential will be performed. Immature Gran Absolute 0.10(H) 0.00 - 0.04 x10(3)/[facility] LABORATORY Blood specimen (specimen) 07/20/2017 5:15 PM EDT 07/20/2017 5:26 PM EDT Narrative Resulting Agency Comment Spec In Lab Sriram Contreras MD HEMATOLOGY ORDERAB LES [facility] [place] [address] * (ABNORMAL) Hemogram (07/20/2017 5:15 PM EDT) White Blood Cell 10.0(H) 4.0 - 9.5 x10(3)/[facility] LABORATORY Red Blood Cell 4.28(L) 4.58 - 5.54 x10(6)/[facility] LABORATORY Hemoglobin 13.3(L) 13.7 - 16.5 gm/dL [facility] Hematocrit 39.9(L) 40.5 - 48.5 % [facility] Mean Cell Volume 93.2(H) 82.9 - 93.1 fL [facility] Mean Cell Hemoglobin 31.1 27.5 - 32.1 pg [facility] Mean Cell Hemoglobin Concentration 33.3 32.0 - 35.7 gm/dL [facility] Platelet 163 145 - 357 x10(3)/mc L [facility] RDW Standard Deviation 47.7(H) 36.0 - 45.0 fL [facility] RDW coefficient of variation 14.1(H) 11.4 - 13.8 % [facility] Mean Platelet Volume 10.1 7.6 - 12.9 fL [facility] NRBC% auto 0.0 % [facility] NRBC Absolute 0.000 0.000 - 0.000 x10(3)/mc L [facility] Blood specimen (specimen) 07/20/2017 5:15 PM EDT 07/20/2017 5:26 PM EDT Narrative Resulting Agency Comment Spec In Lab Sriram Contreras MD HEMATOLOGY ORDERAB LES Performing Organization Address City/State/[facility] Co de Phone Number [facility] [place] [address] * APTT (07/20/2017 5:15 PM EDT) [facility] Partial Thromboplastin Time 28 25 - 35 sec [facility] Comment: The recommended therapeutic range for full dose, unfractionated heparin at [facility] is 80 ? 114 seconds. The use of the anti-Xa (heparin) level rather than the PTT is recommended for monitoring anticoagulation intensity in critically ill patients receiving unfractionated heparin by continuous IV infusion. Blood specimen (specimen) 07/20/2017 5:15 PM EDT 07/20/2017 5:26 PM EDT Narrative Resulting Agency Comment Spec In Lab Sriram Contreras MD HEMATOLOGY ORDERAB LES Performing Organization Address City/[facility]/ZIP Co de Phone Number [facility] [place] [address] * Magnesium (07/20/2017 4:50 PM EDT) [facility] Magnesium 1.00 0.69 - 1.07 mmol/L [facility] Blood specimen (specimen) 07/20/2017 4:50 PM EDT 07/20/2017 5:10 PM EDT Narrative Resulting Agency Comment Spec In Lab Sylvia Vaughn MD CHEMISTRY ORDERABLES Performing Organization Address [facility] Co de Phone Number [facility] [place] [address] * (ABNORMAL) Basic Metabolic Panel (non-fasting) (07/20/2017 4:50 PM EDT) [facility] Glucose 143 65 - 199 mg/dL [facility] Comment:Diabetes: >=200 mg/d L plus symptoms Blood Urea Nitrogen 23(H) 10 - 20 mg/dL [facility] Creatinine 0.85 0.80 - 1.50 mg/dL [facility] Comment: Please note that the pediatric reference intervals supplied above were not validated at [facility]. Results from pediatric patients should be interpreted in conjunction to the patient's age, height and muscle mass. Sodium 146(H) 135 - 145 mmol/L [facility] Potassium 3.9 3.5 - 5.0 mmol/L [facility] Comment: Please note: ??Patients with WBC >100,000 may have falsely elevated Potassium levels. ??For accurate Potassium quantification in these patients send serum separator tube (gold top) for subsequent determinations. ??Contact the Clinical Chemistry Laboratory if there are any questions. Chloride 110(H) 98 - 107 mmol/L [facility] Carbon Dioxide 25 22 - 31 mmol/L [facility] Anion Gap 11 5 - 15 mmol/L [facility] Calcium 8.5 8.5 - 10.5 mg/dL [facility] Est Glomerular Filtration Rate >60 >=60 [facility] Comment: This estimated GFR [...] the following links into your internet browser. [email or web address] Blood specimen (specimen) 07/20/2017 4:50 PM EDT 07/20/2017 5:10 PM EDT Narrative Resulting Agency Comment Spec In Lab Sylvia Vaughn MD CHEMISTRY ORDERABLES Performing Organization Address City/[facility]/ZIP Co de Phone Number [facility] [place] [address] * POCT Glucose (07/20/2017 3:41 PM EDT) Glucose, POC 138 65 - 199 mg/dL [facility] Comment: Supplemental ranges: <140 mg/dL before meals <180 mg/dL all other times of the day Blood specimen (specimen) 07/20/2017 3:41 PM EDT 07/20/2017 3:41 PM EDT Sriram Contreras MD POINT OF CARE TEST ORDERABLES [facility] [place] [address] * CTA Chest for Pulmonary Embolus w [...] suggestive of normal upper respiratory yung (A) [facility] Gram Stain Many White Blood Cells seen Few squamous epithelial cells seen Many Gram Negative Rods seen Many mixed bacterial morphotypes suggestive of normal upper respiratory yung (A) [facility] Organism Enterobacter aerogenes(A) [facility] Organism Gram Negative Rods(A) [facility] Specimen from trachea obtained by aspiration [...] - GEN ERAL ORDERABLES Performing Organization Address City/[facility]/ZIP Co de Phone Number [facility] [place] [address] * POCT Glucose (07/20/2017 11:45 AM EDT) Pathologist [facility] Glucose, POC 125 65 - 199 mg/dL [facility] Comment: Supplemental ranges: <140 mg/dL before meals <180 mg/dL all other times of the day Blood specimen (specimen) 07/20/2017 11:45 AM EDT 07/20/2017 11:45 AM EDT Sriram Contreras MD POINT OF CARE TEST ORDERABLES Performing Organization Address [facility]/ZIP Co de Phone Number [facility] [place] [address] * (ABNORMAL) BLOOD GAS 2 ARTERIAL (07/20/2017 11:43 AM EDT) pH, Arterial 7.45 7.35 - 7.45 [facility] PCO2, Arterial 35 35 - 45 mmHg [facility] PO2, Arterial 57(L) 85 - 104 mmHg [facility] Bicarbonate, Arterial 23.9 20.0 - 26.0 mmol/L [facility] Base Excess, Arterial 0.1 -3.0 - 3.0 mmol/L [facility] Hgb Blood Gas 14.6 13.7 - 16.5 gm/dL [facility] Oxyhemoglobin, Arterial 89.5(L) 94.0 - 97.0 % [facility] Carboxyhemoglob in, Arterial 0.0 % [facility] Comment: Nonsmokers: 0.5-1.5% COHB Smokers: Variable, but usually less than 10% Toxic: 20-30% COHB Lethal: Greater than 60% COHB Methemoglobin, Arterial 0.5 <=1.5 % [facility] Na Whole Blood 145 135 - 145 mmol/L [facility] K Whole Blood 3.9 3.5 - 5.0 mmol/L [facility] Comment: Please note: Patients with WBC >100,000 may have falsely elevated Potassium levels. Contact the Clinical Chemistry Laboratory if there are any questions. ICa Whole Blood 1.23 1.15 - 1.33 mmol/L [facility] Comment: Note: ??Total bilirubin higher than 20 mg/dL may lead to falsely low ionized calcium. CL Whole Blood 110(H) 98 - 107 mmol/L [facility] Gluc Whole Bld 136 65 - 199 mg/dL [facility] Comment:Diabetes: >=200 mg/d L plus symptoms. Lactate WB 1.3 0.5 - 2.2 mmol/L [facility] FIO2 Art 35 % [facility] PF Ratio Art 163 [facility] Temp Art 37.6 Celsius [facility] Blood specimen (specimen) 07/20/2017 11:43 AM EDT 07/20/2017 11:43 AM EDT Sriram Contreras MD POINT OF CARE TEST ORDERABLES Performing Organization Address City/State/[facility] Co de Phone Number [facility] [place] [address] * Potassium (07/20/2017 10:15 AM EDT) Potassium 4.1 3.5 - 5.0 mmol/L [facility] Comment: Please note: ??Patients [...] Lab Sriram Contreras MD CHEMISTRY ORDERABL ES [facility] [place] [address] * XR Chest PA or AP 1 [...] respiratory failure Location of Procedure: ICU [facility]. Risks and Benefits: The risks and benefits [...] * POCT Glucose (07/20/2017 7:29 AM EDT) [facility] Glucose, POC 134 65 - 199 mg/dL [facility] Comment: Supplemental ranges: <140 mg/dL before meals <180 mg/dL all other times of the day Blood specimen (specimen) 07/20/2017 7:29 AM EDT 07/20/2017 7:29 AM EDT Sriram Contreras MD POINT OF CARE TEST ORDERABLES Performing Organization Address [facility] Phone Number [facility] [place] [address] * Potassium (07/20/2017 7:28 AM EDT) [facility] Potassium 4.0 3.5 - 5.0 mmol/L [facility] Comment: Please note: ??Patients [...] MD CHEMISTRY ORDERABL ES Performing Organization Address [facility] de Phone Number [facility] [place] [address] * (ABNORMAL) Differential, Automated (07/20/2017 3:15 AM EDT) [facility] Neutrophil % 83.6 % [facility] Neutrophil Absolute 8.93(H) 1.70 - 6.10 x10(3)/mc L [facility] Lymph % 9.1 % [facility] Lymphocytes Abs 1.0 0.9 - 3.2 x10(3)/mc L [facility] Monocyte % 6.3 % [facility] Monocyte Abs 0.7 0.3 - 0.9 x10(3)/mc L [facility] Eos % 0.1 % [facility] Eosinophils Abs 0.0 0.0 - 0.4 x10(3)/[facility] LABORATORY Basophil % 0.2 % [facility] Baso Absolute 0.0 0.0 - 0.1 x10(3)/[facility] LABORATORY Immature Gran % 0.70 % [facility] Comment: Immature granulocytes(IG's)percentage and absolute count will include metamyelocytes, myelocytes, and promyelocytes. Blood smears from CBCs yielding IG's will be scanned manually for concordance. If this scan disagrees with the automated IG or if promyelocytes are noted, a manual differential will be performed. Immature Gran Absolute 0.07(H) 0.00 - 0.04 x10(3)/[facility] LABORATORY Blood specimen (specimen) 07/20/2017 3:15 AM EDT 07/20/2017 3:58 AM EDT Narrative Resulting Agency Comment Spec In Lab Sriram Contreras MD HEMATOLOGY ORDERAB LES [facility] [place] [address] * (ABNORMAL) Hemogram (07/20/2017 3:15 AM EDT) White Blood Cell 10.7(H) 4.0 - 9.5 x10(3)/[facility] LABORATORY Red Blood Cell 4.40(L) 4.58 - 5.54 x10(6)/[facility] LABORATORY Hemoglobin 13.7 13.7 - 16.5 gm/dL [facility] Hematocrit 39.6(L) 40.5 - 48.5 % [facility] Mean Cell Volume 90.0 82.9 - 93.1 fL [facility] Mean Cell Hemoglobin 31.1 27.5 - 32.1 pg [facility] Mean Cell Hemoglobin Concentration 34.6 32.0 - 35.7 gm/dL [facility] Platelet 186 145 - 357 x10(3)/mc L [facility] RDW Standard Deviation 45.8(H) 36.0 - 45.0 fL [facility] RDW coefficient of variation 13.9(H) 11.4 - 13.8 % [facility] Mean Platelet Volume 9.9 7.6 - 12.9 fL [facility] NRBC% auto 0.0 % [facility] NRBC Absolute 0.000 0.000 - 0.000 x10(3)/mc L [facility] Blood specimen (specimen) 07/20/2017 3:15 AM EDT 07/20/2017 3:58 AM EDT Narrative Resulting Agency Comment Spec In Lab Sriram Contreras MD HEMATOLOGY ORDERAB LES Performing Organization Address City/State/[facility] Co de Phone Number [facility] [place] [address] * (ABNORMAL) Basic Metabolic Panel (non-fasting) (07/20/2017 3:15 AM EDT) Glucose 126 65 - 199 mg/dL [facility] Comment:Diabetes: >=200 mg/d L plus symptoms Blood Urea Nitrogen 23(H) 10 - 20 mg/dL [facility] Creatinine 0.97 0.80 - 1.50 mg/dL [facility] Comment: Please note that the pediatric reference intervals supplied above were not validated at [facility]. Results from pediatric patients should be interpreted in conjunction to the patient's age, height and muscle mass. Sodium 143 135 - 145 mmol/L [facility] Potassium 3.9 3.5 - 5.0 mmol/L [facility] Comment: Please note: ??Patients with WBC >100,000 may have falsely elevated Potassium levels. ??For accurate Potassium quantification in these patients send serum separator tube (gold top) for subsequent determinations. ??Contact the Clinical Chemistry Laboratory if there are any questions. Chloride 106 98 - 107 mmol/L [facility] Carbon Dioxide 23 22 - 31 mmol/L [facility] Anion Gap 14 5 - 15 mmol/L [facility] Calcium 8.5 8.5 - 10.5 mg/dL [facility] Est Glomerular Filtration Rate >60 >=60 [facility] Comment: This estimated GFR [...] the following links into your internet browser. [email or web address] Blood specimen (specimen) 07/20/2017 3:15 AM EDT 07/20/2017 3:58 AM EDT Narrative Resulting Agency Comment Spec In Lab Sriram Contreras MD CHEMISTRY ORDERABL ES Performing Organization Address City/[facility]/ZIP Co de Phone Number [facility] [place] [address] * POCT Glucose (07/20/2017 3:13 AM EDT) Glucose, POC 114 65 - 199 mg/dL [facility] Comment: Supplemental ranges: <140 mg/dL before meals <180 mg/dL all other times of the day Blood specimen (specimen) 07/20/2017 3:13 AM EDT 07/20/2017 3:13 AM EDT Sriram Contreras MD POINT OF CARE TEST ORDERABLES Performing Organization Address City/[facility]/ZIP Co de Phone Number [facility] [place] [address] * (ABNORMAL) BLOOD GAS 2 ARTERIAL (07/19/2017 11:36 PM EDT) pH, Arterial 7.51(H) 7.35 - 7.45 [facility] PCO2, Arterial 29(L) 35 - 45 mmHg [facility] PO2, Arterial 77(L) 85 - 104 mmHg [facility] Bicarbonate, Arterial 22.2 20.0 - 26.0 mmol/L [facility] Excess, Arterial -0.8 -3.0 - 3.0 mmol/L [facility] Hgb Blood Gas 14.7 13.7 - 16.5 gm/dL [facility] Oxyhemoglobin, Arterial 94.7 94.0 - 97.0 % [facility] Carboxyhemoglob in, Arterial 0.3 % [facility] Comment: Nonsmokers: 0.5-1.5% COHB Smokers: Variable, but usually less than 10% Toxic: 20-30% COHB Lethal: Greater than 60% COHB Methemoglobin, Arterial 0.7 <=1.5 % [facility] Na Whole Blood 142 135 - 145 mmol/L [facility] K Whole Blood 3.8 3.5 - 5.0 mmol/L [facility] Comment: Please note: Patients with WBC >100,000 may have falsely elevated Potassium levels. Contact the Clinical Chemistry Laboratory if there are any questions. ICa Whole Blood 1.19 1.15 - 1.33 mmol/L [facility] Comment: Note: ??Total bilirubin higher than 20 mg/dL may lead to falsely low ionized calcium. CL Whole Blood 109(H) 98 - 107 mmol/L [facility] Gluc Whole Bld 125 65 - 199 mg/dL [facility] Comment:Diabetes: >=200 mg/d L plus symptoms. Lactate WB 1.6 0.5 - 2.2 mmol/L [facility] FIO2 Art 50 % [facility] PF Ratio Art 154 [facility] Blood specimen (specimen) 07/19/2017 11:36 PM EDT 07/19/2017 11:36 PM EDT Sriram Contreras MD POINT OF CARE TEST ORDERABLES Performing Organization Address [facility] Co de Phone Number [facility] [place] [address] * POCT Glucose (07/19/2017 11:31 PM EDT) Glucose, POC 110 65 - 199 mg/dL [facility] Comment: Supplemental ranges: <140 mg/dL before meals <180 mg/dL all other times of the day Blood specimen (specimen) 07/19/2017 11:31 PM EDT 07/19/2017 11:31 PM EDT Sriram Contreras MD POINT OF CARE TEST ORDERABLES Performing Organization Address [facility] Co de Phone Number [facility] [place] [address] * Potassium (07/19/2017 11:30 PM EDT) Potassium 3.9 3.5 - 5.0 mmol/L [facility] Comment: Please note: ??Patients [...] ORDERABL ES Performing Organization Address [facility] Co de Phone Number [facility] [place] [address] * POCT Glucose (07/19/2017 7:45 PM EDT) Glucose, POC 100 65 - 199 mg/dL [facility] Comment: Supplemental ranges: <140 mg/dL before meals <180 mg/dL all other times of the day Blood specimen (specimen) 07/19/2017 7:45 PM EDT 07/19/2017 7:45 PM EDT Sriram Contreras MD POINT OF CARE TEST ORDERABLES Performing Organization Address [facility] [place] [address] * Blood culture (07/19/2017 7:00 PM EDT) Blood Culture No growth at 5 days. [facility] Blood specimen (specimen) STRUCTURE OF LEFT WRIST REGION / Unknown 07/19/2017 7:00 PM EDT 07/19/2017 7:50 PM EDT Narrative Resulting Agency Comment Spec In Lab Sriram Contreras MD MICROBIOLOGY - BLO OD ORDERABLES Performing Organization Address [facility] [place] [address] * Blood culture (07/19/2017 6:50 PM EDT) Blood Culture No growth at 5 days. [facility] Blood specimen (specimen) STRUCTURE OF RIGHT WRIST REGION / Unknown 07/19/2017 6:50 PM EDT 07/19/2017 7:51 PM EDT Narrative Resulting Agency Comment Spec In Lab Sriram Contreras MD MICROBIOLOGY - BLO OD ORDERABLES Performing Organization Address [facility] [place] [address] * XR Chest PA or AP 1 [...] EDT) pH, Arterial 7.49(H) 7.35 - 7.45 [facility] PCO2, Arterial 32(L) 35 - 45 mmHg [facility] PO2, Arterial 66(L) 85 - 104 mmHg [facility] Bicarbonate, Arterial 23.2 20.0 - 26.0 mmol/L [facility] Base Excess, Arterial -0.2 -3.0 - 3.0 mmol/L [facility] Hgb Blood Gas 15.5 13.7 - 16.5 gm/dL [facility] Oxyhemoglobin, Arterial 93.1(L) 94.0 - 97.0 % [facility] Carboxyhemoglob in, Arterial 0.4 % [facility] Comment: Nonsmokers: 0.5-1.5% COHB Smokers: Variable, but usually less than 10% Toxic: 20-30% COHB Lethal: Greater than 60% COHB Methemoglobin, Arterial 0.6 <=1.5 % [facility] Na Whole Blood 158(H) 135 - 145 mmol/L [facility] K Whole Blood 4.0 3.5 - 5.0 mmol/L [facility] Comment: Please note: Patients with WBC >100,000 may have falsely elevated Potassium levels. Contact the Clinical Chemistry Laboratory if there are any questions. ICa Whole Blood 1.14(L) 1.15 - 1.33 mmol/L [facility] Comment: Note: ??Total bilirubin higher than 20 mg/dL may lead to falsely low ionized calcium. CL Whole Blood 120(H) 98 - 107 mmol/L [facility] Gluc Whole Bld 116 65 - 199 mg/dL [facility] Comment:Diabetes: >=200 mg/d L plus symptoms. Lactate WB 1.6 0.5 - 2.2 mmol/L [facility] FIO2 Art 100 % [facility] PF Ratio Art 66 [facility] Blood specimen (specimen) 07/19/2017 5:12 PM EDT 07/19/2017 5:12 PM EDT Sriram Contreras MD POINT OF CARE TEST ORDERABLES [facility] [place] [address] * EKG 12 Lead (07/19/2017 4:55 PM EDT) Ventricular rate 85 BPM MUSE SYSTEM Atrial Rate 326 BPM MUSE SYSTEM QRS Duration 92 ms MUSE SYSTEM Q-T Interval 388 ms MUSE SYSTEM QTC Calculated (Bezet) 461 ms MUSE SYSTEM Calculated R [place] 65 degrees MUSE SYSTEM Calculated T [place] 4 degrees MUSE SYSTEM INTERPRETATION Atrial fibrillation [...] EDT) Phosphorus 3.0 2.5 - 4.5 mg/dL [facility] Blood specimen (specimen) 07/19/2017 4:50 PM EDT 07/19/2017 5:05 PM EDT Narrative Resulting Agency Comment Spec In Lab Sriram Contreras MD CHEMISTRY ORDERABL ES [facility] [place] [address] * (ABNORMAL) Basic Metabolic Panel (non-fasting) (07/19/2017 4:50 PM EDT) Glucose 118 65 - 199 mg/dL [facility] Comment:Diabetes: >=200 mg/d L plus symptoms Blood Urea Nitrogen 19 10 - 20 mg/dL [facility] Creatinine 0.79(L) 0.80 - 1.50 mg/dL [facility] Comment: Please note that the pediatric reference intervals supplied above were not validated at [facility]. Results from pediatric patients should be interpreted in conjunction to the patient's age, height and muscle mass. Sodium 144 135 - 145 mmol/L [facility] Potassium 3.5 3.5 - 5.0 mmol/L [facility] Comment: Please note: ??Patients with WBC >100,000 may have falsely elevated Potassium levels. ??For accurate Potassium quantification in these patients send serum separator tube (gold top) for subsequent determinations. ??Contact the Clinical Chemistry Laboratory if there are any questions. Chloride 106 98 - 107 mmol/L [facility] Carbon Dioxide 23 22 - 31 mmol/L [facility] Anion Gap 15 5 - 15 mmol/L [facility] Calcium 8.7 8.5 - 10.5 mg/dL [facility] Est Glomerular Filtration Rate >60 >=60 [facility] Comment: This estimated GFR [...] the following links into your internet browser. [email or web address] Blood specimen (specimen) 07/19/2017 4:50 PM EDT 07/19/2017 5:05 PM EDT Narrative Resulting Agency Comment Spec In Lab Sriram Contreras MD CHEMISTRY ORDERABL ES Performing Organization Address [facility] Phone Number [facility] [place] [place] [address] * Magnesium (07/19/2017 4:50 PM EDT) Magnesium 0.86 0.69 - 1.07 mmol/L [facility] Blood specimen (specimen) 07/19/2017 4:50 PM EDT 07/19/2017 5:05 PM EDT Narrative Resulting Agency Comment Spec In Lab Sriram Contreras MD CHEMISTRY ORDERABL ES Performing Organization Address [facility] Phone Number [facility] [place] [address] * POCT Glucose (07/19/2017 3:37 PM EDT) Glucose, POC 101 65 - 199 mg/dL [facility] Comment: Supplemental ranges: <140 mg/dL before meals <180 mg/dL all other times of the day Blood specimen (specimen) 07/19/2017 3:37 PM EDT 07/19/2017 3:37 PM EDT Sriram Contreras MD POINT OF CARE TEST ORDERABLES [facility] [place] [address] * XR Chest PA or AP 1 [...] Glucose, POC 100 65 - 199 mg/dL [facility] Comment: Supplemental ranges: <140 mg/dL before meals <180 mg/dL all other times of the day Blood specimen (specimen) 07/19/2017 12:36 PM EDT 07/19/2017 12:36 PM EDT Sriram Contreras MD POINT OF CARE TEST ORDERABLES [facility] [place] [address] * Potassium (07/19/2017 12:30 PM EDT) Potassium 3.7 3.5 - 5.0 mmol/L [facility] Comment: Please note: ??Patients [...] ORDERABL ES Performing Organization Address [facility] de Phone Number [facility] [place] [address] * (ABNORMAL) BLOOD GAS 2 ARTERIAL (07/19/2017 12:17 PM EDT) pH, Arterial 7.50(H) 7.35 - 7.45 [facility] PCO2, Arterial 32(L) 35 - 45 mmHg [facility] PO2, Arterial 60(L) 85 - 104 mmHg [facility] Bicarbonate, Arterial 23.7 20.0 - 26.0 mmol/L [facility] Base Excess, Arterial 0.5 -3.0 - 3.0 mmol/L [facility] Hgb Blood Gas 14.8 13.7 - 16.5 gm/dL [facility] Oxyhemoglobin, Arterial 91.1(L) 94.0 - 97.0 % [facility] Carboxyhemoglob in, Arterial 0.1 % [facility] Comment: Nonsmokers: 0.5-1.5% COHB Smokers: Variable, but usually less than 10% Toxic: 20-30% COHB Lethal: Greater than 60% COHB Methemoglobin, Arterial 0.6 <=1.5 % [facility] Na Whole Blood 145 135 - 145 mmol/L [facility] K Whole Blood 3.7 3.5 - 5.0 mmol/L [facility] Comment: Please note: Patients with WBC >100,000 may have falsely elevated Potassium levels. Contact the Clinical Chemistry Laboratory if there are any questions. ICa Whole Blood 1.16 1.15 - 1.33 mmol/L [facility] Comment: Note: ??Total bilirubin higher than 20 mg/dL may lead to falsely low ionized calcium. CL Whole Blood 109(H) 98 - 107 mmol/L [facility] Gluc Whole Bld 115 65 - 199 mg/dL [facility] Comment:Diabetes: >=200 mg/d L plus symptoms. Lactate WB 1.3 0.5 - 2.2 mmol/L [facility] FIO2 Art 45 % [facility] PF Ratio Art 133 [facility] Blood specimen (specimen) 07/19/2017 12:17 PM EDT 07/19/2017 12:17 PM EDT Sriram Contreras MD POINT OF CARE TEST ORDERABLES Performing Organization Address [facility] Co de Phone Number [facility] [place] [address] * Potassium (07/19/2017 8:50 AM EDT) Potassium 3.8 3.5 - 5.0 mmol/L [facility] Comment: Please note: ??Patients [...] MD CHEMISTRY ORDERABL ES Performing Organization Address City/[facility]/ZIP Co de Phone Number [facility] [place] [address] * Folate, serum (07/19/2017 8:50 AM EDT) Folate 16.6 4.8 - 24.2 ng/mL [facility] Blood specimen (specimen) 07/19/2017 8:50 AM EDT 07/19/2017 9:11 AM EDT Narrative Resulting Agency Comment Spec In Lab Sriram Contreras MD CHEMISTRY ORDERABL ES Performing Organization Address [facility] Co de Phone Number [facility] [place] [address] * Vitamin B12 (07/19/2017 8:50 AM EDT) Vitamin B12 468 207 - 974 pg/mL [facility] Blood specimen (specimen) 07/19/2017 8:50 AM EDT 07/19/2017 9:11 AM EDT Narrative Resulting Agency Comment Spec In Lab Sriram Contreras MD CHEMISTRY ORDERABL ES Performing Organization Address [facility] Co de Phone Number [facility] [place] [address] * (ABNORMAL) TSH (07/19/2017 8:50 AM EDT) Thyroid Stimulating Hormone 6.80(H) 0.27 - 4.20 mlU/ML [facility] Blood specimen (specimen) 07/19/2017 8:50 AM EDT 07/19/2017 9:11 AM EDT Narrative Resulting Agency Comment Spec In Lab Sriram Contreras MD CHEMISTRY ORDERABL ES Performing Organization Address [facility]/ZIP Co de Phone Number [facility] [place] [address] * Urine Hold (07/19/2017 8:07 AM EDT) Hold, Urine Sample in lab. [facility] Urine specimen (specimen) Urine / Unknown 07/19/2017 8:07 AM EDT 07/19/2017 8:35 AM EDT Sriram Contreras MD URINE ORDERABLES [facility] [place] [address] * (ABNORMAL) Urinalysis with reflex Culture (07/19/2017 8:07 AM EDT) Glucose, Urine Dipstick Negative Negative mg/dL [facility] Protein, Urine Dipstick 30(A) Negative mg/dL [facility] Bilirubin, Urine Dipstick Negative Negative mg/dL [facility] Comment: Clinical correlation required for positive Urine Bilirubin results as false positive may occur with some drugs and drug related products. If a false positive is suspected a serum total bilirubin should be considered if clinically indicated. Urobilinogen, Urine Dipstick >=4.0(A) Normal mg/dL [facility] pH, Urn (dipstick) 7.0 5.0 - 8.0 [facility] Blood, Urine Dipstick Moderate(A) Negative mg/dL [facility] Ketone, Urine Dipstick Negative Negative mg/dL [facility] Nitrite, Urine Dipstick Negative Negative [facility] Leukocytes, Urine Dipstick Trace(A) Negative [facility] Appearance, Urine Dipstick Clear Clear [facility] Specific [place] Urine Automated 1.025 1.002 - 1.030 [facility] Color, Urine Dipstick Yellow Yellow [facility] RBC, Urine 161(H) 0 - 3 /HPF [facility] WBC, Urine 1 0 - 3 /HPF [facility] Reflex to Culture No [facility] Urine specimen obtained via indwelling urinary catheter (specimen) 07/19/2017 8:07 AM EDT 07/19/2017 8:34 AM EDT Narrative Resulting Agency Comment Spec In Lab Sriram Contreras MD URINE ORDERABLES Performing Organization Address [facility] Co de Phone Number [facility] [place] [address] * POCT Glucose (07/19/2017 7:42 AM EDT) Glucose, POC 99 65 - 199 mg/dL [facility] Comment: Supplemental ranges: <140 mg/dL before meals <180 mg/dL all other times of the day Blood specimen (specimen) 07/19/2017 7:42 AM EDT 07/19/2017 7:42 AM EDT Sriram Contreras MD POINT OF CARE TEST ORDERABLES Performing Organization Address [facility] Co de Phone Number [facility] [place] [address] * POCT Glucose (07/19/2017 4:11 AM EDT) Glucose, POC 93 65 - 199 mg/dL [facility] Comment: Supplemental ranges: <140 mg/dL before meals <180 mg/dL all other times of the day Blood specimen (specimen) 07/19/2017 4:11 AM EDT 07/19/2017 4:11 AM EDT Sriram Contreras MD POINT OF CARE TEST ORDERABLES Performing Organization Address [facility] Co de Phone Number [facility] [place] [address] * (ABNORMAL) Differential, Automated (07/19/2017 2:30 AM EDT) Neutrophil % 77.9 % [facility] Neutrophil Absolute 9.99(H) 1.70 - 6.10 x10(3)/mc L [facility] Lymph % 9.8 % [facility] Lymphocytes Abs 1.2 0.9 - 3.2 x10(3)/ L [facility] Monocyte % 11.5 % [facility] Monocyte Abs 1.5(H) 0.3 - 0.9 x10(3)/[facility] Eos % 0.1 % [facility] Eosinophils Abs 0.0 0.0 - 0.4 x10(3)/[facility] Basophil % 0.2 % [facility] Baso Absolute 0.0 0.0 - 0.1 x10(3)/[facility] Immature Gran % 0.50 % [facility] Comment: Immature granulocytes(IG's)percentage and absolute count will include metamyelocytes, myelocytes, and promyelocytes. Blood smears from CBCs yielding IG's will be scanned manually for concordance. If this scan disagrees with the automated IG or if promyelocytes are noted, a manual differential will be performed. Immature Gran Absolute 0.07(H) 0.00 - 0.04 x10(3)/[facility] Blood specimen (specimen) 07/19/2017 2:30 AM EDT 07/19/2017 2:34 AM EDT Narrative Resulting Agency Comment Spec In Lab Sriram Contreras MD HEMATOLOGY ORDERAB LES Performing Organization Address City/State/[facility] Co de Phone Number [facility] [place] [address] * (ABNORMAL) Hemogram (07/19/2017 2:30 AM EDT) White Blood Cell 12.8(H) 4.0 - 9.5 x10(3)/[facility] Red Blood Cell 4.30(L) 4.58 - 5.54 x10(6)/[facility] Hemoglobin 13.5(L) 13.7 - 16.5 gm/dL [facility] Hematocrit 38.6(L) 40.5 - 48.5 % [facility] Mean Cell Volume 89.8 82.9 - 93.1 fL [facility] Mean Cell Hemoglobin 31.4 27.5 - 32.1 pg [facility] Mean Cell Hemoglobin Concentration 35.0 32.0 - 35.7 gm/dL [facility] Platelet 176 145 - 357 x10(3)/mc L [facility] RDW Standard Deviation 45.1(H) 36.0 - 45.0 fL [facility] RDW coefficient of variation 13.9(H) 11.4 - 13.8 % [facility] Mean Platelet Volume 9.8 7.6 - 12.9 fL [facility] NRBC% auto 0.0 % [facility] NRBC Absolute 0.000 0.000 - 0.000 x10(3)/mc L [facility] Blood specimen (specimen) 07/19/2017 2:30 AM EDT 07/19/2017 2:34 AM EDT Narrative Resulting Agency Comment Spec In Lab Sriram Contreras MD HEMATOLOGY ORDERAB LES Performing Organization Address City/State/[facility] Co de Phone Number [facility] [place] [address] * (ABNORMAL) Basic Metabolic Panel (non-fasting) (07/19/2017 2:30 AM EDT) Glucose 102 65 - 199 mg/dL [facility] Comment:Diabetes: >=200 mg/d L plus symptoms Blood Urea Nitrogen 23(H) 10 - 20 mg/dL [facility] Creatinine 0.87 0.80 - 1.50 mg/dL [facility] Comment: Please note that the pediatric reference intervals supplied above were not validated at [facility]. Results from pediatric patients should be interpreted in conjunction to the patient's age, height and muscle mass. Sodium 144 135 - 145 mmol/L [facility] Potassium 3.4(L) 3.5 - 5.0 mmol/L [facility] Comment: Please note: ??Patients with WBC >100,000 may have falsely elevated Potassium levels. ??For accurate Potassium quantification in these patients send serum separator tube (gold top) for subsequent determinations. ??Contact the Clinical Chemistry Laboratory if there are any questions. Chloride 106 98 - 107 mmol/L [facility] Carbon Dioxide 23 22 - 31 mmol/L [facility] Anion Gap 15 5 - 15 mmol/L [facility] Calcium 8.5 8.5 - 10.5 mg/dL [facility] Est Glomerular Filtration Rate >60 >=60 [facility] Comment: This estimated GFR [...] the following links into your internet browser. [email or web address] Blood specimen (specimen) 07/19/2017 2:30 AM EDT 07/19/2017 2:34 AM EDT Narrative Resulting Agency Comment Spec In Lab Sriram Contreras MD CHEMISTRY ORDERABL ES [facility] [place] [address] * (ABNORMAL) Prealbumin (07/19/2017 2:30 AM EDT) Prealbumin 17(L) 20 - 40 mg/dL [facility] Comment: Prealbumin levels are generally lower in the pediatric population; adult concentrations are usually attained near puberty. Blood specimen (specimen) 07/19/2017 2:30 AM EDT 07/19/2017 2:34 AM EDT Narrative Resulting Agency Comment Spec In Lab Sriram Contreras MD CHEMISTRY ORDERABL ES [facility] [place] [address] * (ABNORMAL) BLOOD GAS 2 ARTERIAL (07/18/2017 11:53 PM EDT) pH, Arterial 7.50(H) 7.35 - 7.45 [facility] PCO2, Arterial 32(L) 35 - 45 mmHg [facility] PO2, Arterial 61(L) 85 - 104 mmHg [facility] Bicarbonate, Arterial 24.5 20.0 - 26.0 mmol/L [facility] Base Excess, Arterial 1.3 -3.0 - 3.0 mmol/L [facility] Hgb Blood Gas 14.1 13.7 - 16.5 gm/dL [facility] Oxyhemoglobin, Arterial 90.9(L) 94.0 - 97.0 % [facility] Carboxyhemoglob in, Arterial 0.3 % [facility] Comment: Nonsmokers: 0.5-1.5% COHB Smokers: Variable, but usually less than 10% Toxic: 20-30% COHB Lethal: Greater than 60% COHB Methemoglobin, Arterial 0.7 <=1.5 % [facility] Na Whole Blood 144 135 - 145 mmol/L [facility] K Whole Blood 3.3(L) 3.5 - 5.0 mmol/L [facility] Comment: Please note: Patients with WBC >100,000 may have falsely elevated Potassium levels. Contact the Clinical Chemistry Laboratory if there are any questions. ICa Whole Blood 1.17 1.15 - 1.33 mmol/L [facility] Comment: Note: ??Total bilirubin higher than 20 mg/dL may lead to falsely low ionized calcium. CL Whole Blood 109(H) 98 - 107 mmol/L [facility] Gluc Whole Bld 104 65 - 199 mg/dL [facility] Comment:Diabetes: >=200 mg/d L plus symptoms. Lactate WB 1.3 0.5 - 2.2 mmol/L [facility] FIO2 Art 45 % [facility] PF Ratio Art 136 [facility] Blood specimen (specimen) 07/18/2017 11:53 PM EDT 07/18/2017 11:53 PM EDT Sriram Contreras MD POINT OF CARE TEST ORDERABLES [facility] [place] [address] * POCT Glucose (07/18/2017 11:49 PM EDT) Glucose, POC 102 65 - 199 mg/dL [facility] Comment: Supplemental ranges: <140 mg/dL before meals <180 mg/dL all other times of the day Blood specimen (specimen) 07/18/2017 11:49 PM EDT 07/18/2017 11:49 PM EDT Sriram Contreras MD POINT OF CARE TEST ORDERABLES Performing Organization Address City/[facility]/ZIP Co de Phone Number [facility] [place] [address] * POCT Glucose (07/18/2017 8:44 PM EDT) Glucose, POC 108 65 - 199 mg/dL [facility] Comment: Supplemental ranges: <140 mg/dL before meals <180 mg/dL all other times of the day Blood specimen (specimen) 07/18/2017 8:44 PM EDT 07/18/2017 8:44 PM EDT Sriram Contreras MD POINT OF CARE TEST ORDERABLES Performing Organization Address City/[facility]/ZIP Co de Phone Number [facility] [place] [address] * (ABNORMAL) BLOOD GAS 2 ARTERIAL (07/18/2017 5:22 PM EDT) pH, Arterial 7.54(H) 7.35 - 7.45 [facility] PCO2, Arterial 31(L) 35 - 45 mmHg [facility] PO2, Arterial 55(L) 85 - 104 mmHg [facility] Bicarbonate, Arterial 25.9 20.0 - 26.0 mmol/L [facility] Base Excess, Arterial 3.3(H) -3.0 - 3.0 mmol/L [facility] Hgb Blood Gas 14.2 13.7 - 16.5 gm/dL [facility] Oxyhemoglobin, Arterial 90.3(L) 94.0 - 97.0 % [facility] Carboxyhemoglob in, Arterial 0.3 % [facility] Comment: Nonsmokers: 0.5-1.5% COHB Smokers: Variable, but usually less than 10% Toxic: 20-30% COHB Lethal: Greater than 60% COHB Methemoglobin, Arterial 0.5 <=1.5 % [facility] Na Whole Blood 144 135 - 145 mmol/L [facility] K Whole Blood 3.3(L) 3.5 - 5.0 mmol/L [facility] Comment: Please note: Patients with WBC >100,000 may have falsely elevated Potassium levels. Contact the Clinical Chemistry Laboratory if there are any questions. ICa Whole Blood 1.18 1.15 - 1.33 mmol/L [facility] Comment: Note: ??Total bilirubin higher than 20 mg/dL may lead to falsely low ionized calcium. CL Whole Blood 108(H) 98 - 107 mmol/L [facility] Gluc Whole Bld 130 65 - 199 mg/dL [facility] Comment:Diabetes: >=200 mg/d L plus symptoms. Lactate WB 1.6 0.5 - 2.2 mmol/L [facility] FIO2 Art 40 % [facility] PF Ratio Art 138 [facility] Blood specimen (specimen) 07/18/2017 5:22 PM EDT 07/18/2017 5:22 PM EDT Sriram Contreras MD POINT OF CARE TEST ORDERABLES Performing Organization Address City/[facility]/ZIP Co de Phone Number [facility] [place] [address] * POCT Glucose (07/18/2017 3:42 PM EDT) Glucose, POC 119 65 - 199 mg/dL [facility] Comment: Supplemental ranges: <140 mg/dL before meals <180 mg/dL all other times of the day Blood specimen (specimen) 07/18/2017 3:42 PM EDT 07/18/2017 3:42 PM EDT Sriram Contreras MD POINT OF CARE TEST ORDERABLES Performing Organization Address City/[facility] Co de Phone Number [facility] [place] [address] * POCT Glucose (07/18/2017 1:05 PM EDT) Glucose, POC 118 65 - 199 mg/dL [facility] Comment: Supplemental ranges: <140 mg/dL before meals <180 mg/dL all other times of the day Blood specimen (specimen) 07/18/2017 1:05 PM EDT 07/18/2017 1:05 PM EDT Sriram Contreras MD POINT OF CARE TEST ORDERABLES Performing Organization Address City/[facility] Co de Phone Number [facility] [place] [address] * (ABNORMAL) BLOOD GAS 2 ARTERIAL (07/18/2017 11:47 AM EDT) pH, Arterial 7.51(H) 7.35 - 7.45 [facility] PCO2, Arterial 33(L) 35 - 45 mmHg [facility] PO2, Arterial 94 85 - 104 mmHg [facility] Bicarbonate, Arterial 25.1 20.0 - 26.0 mmol/L [facility] Base Excess, Arterial 2.0 -3.0 - 3.0 mmol/L [facility] Hgb Blood Gas 14.4 13.7 - 16.5 gm/dL [facility] Oxyhemoglobin, Arterial 96.1 94.0 - 97.0 % [facility] Carboxyhemoglob in, Arterial 0.3 % [facility] Comment: Nonsmokers: 0.5-1.5% COHB Smokers: Variable, but usually less than 10% Toxic: 20-30% COHB Lethal: Greater than 60% COHB Methemoglobin, Arterial 0.6 <=1.5 % [facility] Na Whole Blood 141 135 - 145 mmol/L [facility] K Whole Blood 3.6 3.5 - 5.0 mmol/L [facility] Comment: Please note: Patients with WBC >100,000 may have falsely elevated Potassium levels. Contact the Clinical Chemistry Laboratory if there are any questions. ICa Whole Blood 1.17 1.15 - 1.33 mmol/L [facility] Comment: Note: ??Total bilirubin higher than 20 mg/dL may lead to falsely low ionized calcium. CL Whole Blood 104 98 - 107 mmol/L [facility] Gluc Whole Bld 228(H) 65 - 199 mg/dL [facility] Comment:Diabetes: >=200 mg/d L plus symptoms. Lactate WB 1.7 0.5 - 2.2 mmol/L [facility] FIO2 Art 50 % [facility] PF Ratio Art 188 [facility] Blood specimen (specimen) 07/18/2017 11:47 AM EDT 07/18/2017 11:47 AM EDT Sriram Contreras MD POINT OF CARE TEST ORDERABLES [facility] [place] [address] * (ABNORMAL) BLOOD GAS 2 ARTERIAL (07/18/2017 7:56 AM EDT) pH, Arterial 7.50(H) 7.35 - 7.45 [facility] PCO2, Arterial 31(L) 35 - 45 mmHg [facility] PO2, Arterial 82(L) 85 - 104 mmHg [facility] Bicarbonate, Arterial 24.2 20.0 - 26.0 mmol/L [facility] Base Excess, Arterial 1.0 -3.0 - 3.0 mmol/L [facility] Hgb Blood Gas 13.4(L) 13.7 - 16.5 gm/dL [facility] Oxyhemoglobin, Arterial 95.3 94.0 - 97.0 % [facility] Carboxyhemoglob in, Arterial 0.3 % [facility] Comment: Nonsmokers: 0.5-1.5% COHB Smokers: Variable, but usually less than 10% Toxic: 20-30% COHB Lethal: Greater than 60% COHB Methemoglobin, Arterial 0.5 <=1.5 % [facility] Na Whole Blood 143 135 - 145 mmol/L [facility] K Whole Blood 3.7 3.5 - 5.0 mmol/L [facility] Comment: Please note: Patients with WBC >100,000 may have falsely elevated Potassium levels. Contact the Clinical Chemistry Laboratory if there are any questions. ICa Whole Blood 1.17 1.15 - 1.33 mmol/L [facility] Comment: Note: ??Total bilirubin higher than 20 mg/dL may lead to falsely low ionized calcium. CL Whole Blood 106 98 - 107 mmol/L [facility] Gluc Whole Bld 158 65 - 199 mg/dL [facility] Comment:Diabetes: >=200 mg/d L plus symptoms. Lactate WB 2.5(H) 0.5 - 2.2 mmol/L [facility] FIO2 Art 60 % [facility] PF Ratio Art 137 [facility] Blood specimen (specimen) 07/18/2017 7:56 AM EDT 07/18/2017 7:56 AM EDT Sriram Contreras MD POINT OF CARE TEST ORDERABLES [facility] [place] [address] * (ABNORMAL) BLOOD GAS 2 ARTERIAL (07/18/2017 3:55 AM EDT) pH, Arterial 7.51(H) 7.35 - 7.45 [facility] PCO2, Arterial 34(L) 35 - 45 mmHg [facility] PO2, Arterial 95 85 - 104 mmHg [facility] Bicarbonate, Arterial 26.4(H) 20.0 - 26.0 mmol/L [facility] Base Excess, Arterial 3.4(H) -3.0 - 3.0 mmol/L [facility] Hgb Blood Gas 14.2 13.7 - 16.5 gm/dL [facility] Oxyhemoglobin, Arterial 96.4 94.0 - 97.0 % [facility] Carboxyhemoglob in, Arterial 0.5 % [facility] Comment: Nonsmokers: 0.5-1.5% COHB Smokers: Variable, but usually less than 10% Toxic: 20-30% COHB Lethal: Greater than 60% COHB Methemoglobin, Arterial 0.6 <=1.5 % [facility] Na Whole Blood 142 135 - 145 mmol/L [facility] K Whole Blood 3.6 3.5 - 5.0 mmol/L [facility] Comment: Please note: Patients with WBC >100,000 may have falsely elevated Potassium levels. Contact the Clinical Chemistry Laboratory if there are any questions. ICa Whole Blood 1.17 1.15 - 1.33 mmol/L [facility] Comment: Note: ??Total bilirubin higher than 20 mg/dL may lead to falsely low ionized calcium. CL Whole Blood 105 98 - 107 mmol/L [facility] Gluc Whole Bld 178 65 - 199 mg/dL [facility] Comment:Diabetes: >=200 mg/d L plus symptoms. Lactate WB 3.0(H) 0.5 - 2.2 mmol/L [facility] FIO2 Art 70 % [facility] PF Ratio Art 136 [facility] Blood specimen (specimen) 07/18/2017 3:55 AM EDT 07/18/2017 3:55 AM EDT Sriram Contreras MD POINT OF CARE TEST ORDERABLES Performing Organization Address [facility] Co de Phone Number [facility] [place] [address] * (ABNORMAL) POCT Glucose (07/18/2017 3:42 AM EDT) Pathologist [facility] Glucose, POC 205(H) 65 - 199 mg/dL [facility] Comment: Supplemental ranges: <140 mg/dL before meals <180 mg/dL all other times of the day Blood specimen (specimen) 07/18/2017 3:42 AM EDT 07/18/2017 3:42 AM EDT Sriram Contreras MD POINT OF CARE TEST ORDERABLES Performing Organization Address [facility] de Phone Number [facility] [place] [address] * (ABNORMAL) Magnesium (07/18/2017 2:20 AM EDT) [facility] Magnesium 1.09(H) 0.69 - 1.07 mmol/L [facility] Blood specimen (specimen) Venous Draw / Unknown 07/18/2017 2:20 AM EDT 07/18/2017 2:31 AM EDT Narrative Resulting Agency Comment Spec In Lab Sriram Contreras MD CHEMISTRY ORDERABL ES Performing Organization Address [facility] Co de Phone Number [facility] [place] [address] * (ABNORMAL) Differential, Automated (07/18/2017 2:20 AM EDT) [facility] Neutrophil % 86.8 % [facility] Neutrophil Absolute 9.28(H) 1.70 - 6.10 x10(3)/ L [facility] Lymph % 5.8 % [facility] Lymphocytes Abs 0.6(L) 0.9 - 3.2 x10(3)/ L [facility] Monocyte % 6.5 % [facility] Monocyte Abs 0.7 0.3 - 0.9 x10(3)/ L [facility] Eos % 0.0 % [facility] Eosinophils Abs 0.0 0.0 - 0.4 x10(3)/[facility] Basophil % 0.2 % [facility] Baso Absolute 0.0 0.0 - 0.1 x10(3)/[facility] Immature Gran % 0.70 % [facility] Comment: Immature granulocytes(IG's)percentage and absolute count will include metamyelocytes, myelocytes, and promyelocytes. Blood smears from CBCs yielding IG's will be scanned manually for concordance. If this scan disagrees with the automated IG or if promyelocytes are noted, a manual differential will be performed. Immature Gran Absolute 0.08(H) 0.00 - 0.04 x10(3)/ L [facility] Blood specimen (specimen) 07/18/2017 2:20 AM EDT 07/18/2017 2:28 AM EDT Narrative Resulting Agency Comment Spec In Lab Sriram Contreras MD HEMATOLOGY ORDERAB LES [facility] [place] [address] * (ABNORMAL) Hemogram (07/18/2017 2:20 AM EDT) White Blood Cell 10.7(H) 4.0 - 9.5 x10(3)/ L [facility] Red Blood Cell 4.39(L) 4.58 - 5.54 x10(6)/mc L [facility] Hemoglobin 13.6(L) 13.7 - 16.5 gm/dL [facility] Hematocrit 38.8(L) 40.5 - 48.5 % [facility] Mean Cell Volume 88.4 82.9 - 93.1 fL [facility] Mean Cell Hemoglobin 31.0 27.5 - 32.1 pg [facility] Mean Cell Hemoglobin Concentration 35.1 32.0 - 35.7 gm/dL [facility] Platelet 147 145 - 357 x10(3)/mc L [facility] RDW Standard Deviation 43.4 36.0 - 45.0 [facility] RDW coefficient of variation 13.3 11.4 - 13.8 % [facility] Mean Platelet Volume 10.9 7.6 - 12.9 [facility] NRBC% auto 0.0 % [facility] NRBC Absolute 0.000 0.000 - 0.000 x10(3)/mc L [facility] Blood specimen (specimen) 07/18/2017 2:20 AM EDT 07/18/2017 2:28 AM EDT Narrative Resulting Agency Comment Spec In Lab Sriram Contreras MD HEMATOLOGY ORDERAB LES Performing Organization Address City/State/[facility] Co de Phone Number [facility] [place] [address] * (ABNORMAL) Basic Metabolic Panel (non-fasting) (07/18/2017 2:20 AM EDT) Glucose 181 65 - 199 mg/dL [facility] Comment:Diabetes: >=200 mg/d L plus symptoms Blood Urea Nitrogen 22(H) 10 - 20 mg/dL [facility] Creatinine 0.74(L) 0.80 - 1.50 mg/dL [facility] Comment: Please note that the pediatric reference intervals supplied above were not validated at [facility]. Results from pediatric patients should be interpreted in conjunction to the patient's age, height and muscle mass. Sodium 145 135 - 145 mmol/L [facility] Potassium 3.7 3.5 - 5.0 mmol/L [facility] Comment: Please note: ??Patients with WBC >100,000 may have falsely elevated Potassium levels. ??For accurate Potassium quantification in these patients send serum separator tube (gold top) for subsequent determinations. ??Contact the Clinical Chemistry Laboratory if there are any questions. Chloride 105 98 - 107 mmol/L [facility] Carbon Dioxide 25 22 - 31 mmol/L [facility] Anion Gap 15 5 - 15 mmol/L [facility] Calcium 8.8 8.5 - 10.5 mg/dL [facility] Est Glomerular Filtration Rate >60 >=60 [facility] Comment: This estimated GFR [...] the following links into your internet browser. [email or web address] Blood specimen (specimen) 07/18/2017 2:20 AM EDT 07/18/2017 2:28 AM EDT Narrative Resulting Agency Comment Spec In Lab Sriram Contreras MD CHEMISTRY ORDERABL ES [facility] [place] [address] * (ABNORMAL) BLOOD GAS 2 ARTERIAL (07/17/2017 11:36 PM EDT) pH, Arterial 7.51(H) 7.35 - 7.45 [facility] PCO2, Arterial 32(L) 35 - 45 mmHg [facility] PO2, Arterial 60(L) 85 - 104 mmHg [facility] Bicarbonate, Arterial 25.0 20.0 - 26.0 mmol/L [facility] Base Excess, Arterial 2.0 -3.0 - 3.0 mmol/L [facility] Hgb Blood Gas 14.8 13.7 - 16.5 gm/dL [facility] Oxyhemoglobin, Arterial 92.1(L) 94.0 - 97.0 % [facility] Carboxyhemoglob in, Arterial 0.3 % [facility] Comment: Nonsmokers: 0.5-1.5% COHB Smokers: Variable, but usually less than 10% Toxic: 20-30% COHB Lethal: Greater than 60% COHB Methemoglobin, Arterial 0.5 <=1.5 % [facility] Na Whole Blood 143 135 - 145 mmol/L [facility] K Whole Blood 3.7 3.5 - 5.0 mmol/L [facility] Comment: Please note: Patients with WBC >100,000 may have falsely elevated Potassium levels. Contact the Clinical Chemistry Laboratory if there are any questions. ICa Whole Blood 1.16 1.15 - 1.33 mmol/L [facility] Comment: Note: ??Total bilirubin higher than 20 mg/dL may lead to falsely low ionized calcium. CL Whole Blood 104 98 - 107 mmol/L [facility] Gluc Whole Bld 202(H) 65 - 199 mg/dL [facility] Comment:Diabetes: >=200 mg/d L plus symptoms. Lactate WB 2.9(H) 0.5 - 2.2 mmol/L [facility] FIO2 Art 60 % [facility] PF Ratio Art 100 [facility] Blood specimen (specimen) 07/17/2017 11:36 PM EDT 07/17/2017 11:36 PM EDT Sriram Contreras MD POINT OF CARE TEST ORDERABLES [facility] [place] [address] * (ABNORMAL) POCT Glucose (07/17/2017 11:34 PM EDT) [facility] Glucose, POC 202(H) 65 - 199 mg/dL [facility] Comment: Supplemental ranges: <140 mg/dL before meals <180 mg/dL all other times of the day Blood specimen (specimen) 07/17/2017 11:34 PM EDT 07/17/2017 11:34 PM EDT Sriram Contreras MD POINT OF CARE TEST ORDERABLES [facility] [place] [address] * Magnesium (07/17/2017 10:10 PM EDT) [facility] Magnesium 0.87 0.69 - 1.07 mmol/L [facility] Blood specimen (specimen) 07/17/2017 10:10 PM EDT 07/17/2017 10:18 PM EDT Narrative Resulting Agency Comment Spec In Lab Sriram Contreras MD CHEMISTRY ORDERABL ES [facility] [place] [address] * (ABNORMAL) BLOOD GAS 2 ARTERIAL (07/17/2017 7:51 PM EDT) [facility] pH, Arterial 7.49(H) 7.35 - 7.45 [facility] PCO2, Arterial 36 35 - 45 mmHg [facility] PO2, Arterial 67(L) 85 - 104 mmHg [facility] Bicarbonate, Arterial 26.8(H) 20.0 - 26.0 mmol/L [facility] Base Excess, Arterial 3.4(H) -3.0 - 3.0 mmol/L [facility] Hgb Blood Gas 14.3 13.7 - 16.5 gm/dL [facility] Oxyhemoglobin, Arterial 93.4(L) 94.0 - 97.0 % [facility] Carboxyhemoglob in, Arterial 0.3 % [facility] Comment: Nonsmokers: 0.5-1.5% COHB Smokers: Variable, but usually less than 10% Toxic: 20-30% COHB Lethal: Greater than 60% COHB Methemoglobin, Arterial 0.6 <=1.5 % [facility] Na Whole Blood 143 135 - 145 mmol/L [facility] K Whole Blood 3.7 3.5 - 5.0 mmol/L [facility] Comment: Please note: Patients with WBC >100,000 may have falsely elevated Potassium levels. Contact the Clinical Chemistry Laboratory if there are any questions. ICa Whole Blood 1.17 1.15 - 1.33 mmol/L [facility] Comment: Note: ??Total bilirubin higher than 20 mg/dL may lead to falsely low ionized calcium. CL Whole Blood 106 98 - 107 mmol/L [facility] Gluc Whole Bld 178 65 - 199 mg/dL [facility] Comment:Diabetes: >=200 mg/d L plus symptoms. Lactate WB 2.8(H) 0.5 - 2.2 mmol/L [facility] FIO2 Art 60 % [facility] PF Ratio Art 112 [facility] Blood specimen (specimen) 07/17/2017 7:51 PM EDT 07/17/2017 7:51 PM EDT Sriram Contreras MD POINT OF CARE TEST ORDERABLES [facility] [place] [address] * POCT Glucose (07/17/2017 7:50 PM EDT) Glucose, POC 153 65 - 199 mg/dL [facility] Comment: Supplemental ranges: <140 mg/dL before meals <180 mg/dL all other times of the day Blood specimen (specimen) 07/17/2017 7:50 PM EDT 07/17/2017 7:50 PM EDT Sriram Contreras MD POINT OF CARE TEST ORDERABLES [facility] [place] [address] * (ABNORMAL) BLOOD GAS 2 ARTERIAL (07/17/2017 3:20 PM EDT) pH, Arterial 7.51(H) 7.35 - 7.45 [facility] PCO2, Arterial 31(L) 35 - 45 mmHg [facility] PO2, Arterial 67(L) 85 - 104 mmHg [facility] Bicarbonate, Arterial 24.3 20.0 - 26.0 mmol/L [facility] Base Excess, Arterial 1.3 -3.0 - 3.0 mmol/L [facility] Hgb Blood Gas 14.1 13.7 - 16.5 gm/dL [facility] Oxyhemoglobin, Arterial 93.8(L) 94.0 - 97.0 % [facility] Carboxyhemoglob in, Arterial 0.3 % [facility] Comment: Nonsmokers: 0.5-1.5% COHB Smokers: Variable, but usually less than 10% Toxic: 20-30% COHB Lethal: Greater than 60% COHB Methemoglobin, Arterial 0.5 <=1.5 % [facility] Na Whole Blood 141 135 - 145 mmol/L [facility] K Whole Blood 3.7 3.5 - 5.0 mmol/L [facility] Comment: Please note: Patients with WBC >100,000 may have falsely elevated Potassium levels. Contact the Clinical Chemistry Laboratory if there are any questions. ICa Whole Blood 1.15(L) 1.15 - 1.33 mmol/L [facility] Comment: Note: ??Total bilirubin higher than 20 mg/dL may lead to falsely low ionized calcium. CL Whole Blood 105 98 - 107 mmol/L [facility] Gluc Whole Bld 204(H) 65 - 199 mg/dL [facility] Comment:Diabetes: >=200 mg/d L plus symptoms. Lactate WB 2.0 0.5 - 2.2 mmol/L [facility] FIO2 Art 50 % [facility] PF Ratio Art 134 [facility] Blood specimen (specimen) 07/17/2017 3:20 PM EDT 07/17/2017 3:20 PM EDT Sriram Contreras MD POINT OF CARE TEST ORDERABLES [facility] [place] [address] * (ABNORMAL) BLOOD GAS 2 ARTERIAL (07/17/2017 12:50 PM EDT) pH, Arterial 7.51(H) 7.35 - 7.45 [facility] PCO2, Arterial 30(L) 35 - 45 mmHg [facility] PO2, Arterial 52(L) 85 - 104 mmHg [facility] Bicarbonate, Arterial 23.7 20.0 - 26.0 mmol/L [facility] Base Excess, Arterial 0.8 -3.0 - 3.0 mmol/L [facility] Hgb Blood Gas 14.0 13.7 - 16.5 gm/dL [facility] Oxyhemoglobin, Arterial 89.4(L) 94.0 - 97.0 % [facility] Carboxyhemoglob in, Arterial 0.3 % [facility] Comment: Nonsmokers: 0.5-1.5% COHB Smokers: Variable, but usually less than 10% Toxic: 20-30% COHB Lethal: Greater than 60% COHB Methemoglobin, Arterial 0.5 <=1.5 % [facility] Na Whole Blood 140 135 - 145 mmol/L [facility] K Whole Blood 3.9 3.5 - 5.0 mmol/L [facility] Comment: Please note: Patients with WBC >100,000 may have falsely elevated Potassium levels. Contact the Clinical Chemistry Laboratory if there are any questions. ICa Whole Blood 1.18 1.15 - 1.33 mmol/L [facility] Comment: Note: ??Total bilirubin higher than 20 mg/dL may lead to falsely low ionized calcium. CL Whole Blood 106 98 - 107 mmol/L [facility] Gluc Whole Bld 195 65 - 199 mg/dL [facility] Comment:Diabetes: >=200 mg/d L plus symptoms. Lactate WB 2.3(H) 0.5 - 2.2 mmol/L [facility] FIO2 Art 50 % [facility] PF Ratio Art 104 [facility] Blood specimen (specimen) 07/17/2017 12:50 PM EDT 07/17/2017 12:50 PM EDT Sriram Contreras MD POINT OF CARE TEST ORDERABLES Performing Organization Address City/State/[facility] Co de Phone Number [facility] [place] [address] * XR Chest PA or AP 1 [...] EDT) pH, Arterial 7.48(H) 7.35 - 7.45 [facility] PCO2, Arterial 34(L) 35 - 45 mmHg [facility] PO2, Arterial 55(L) 85 - 104 mmHg [facility] Bicarbonate, Arterial 24.7 20.0 - 26.0 mmol/L [facility] Base Excess, Arterial 1.2 -3.0 - 3.0 mmol/L [facility] Hgb Blood Gas 14.1 13.7 - 16.5 gm/dL [facility] Oxyhemoglobin, Arterial 90.4(L) 94.0 - 97.0 % [facility] Carboxyhemoglob in, Arterial 0.1 % [facility] Comment: Nonsmokers: 0.5-1.5% COHB Smokers: Variable, but usually less than 10% Toxic: 20-30% COHB Lethal: Greater than 60% COHB Methemoglobin, Arterial 0.7 <=1.5 % [facility] Na Whole Blood 141 135 - 145 mmol/L [facility] K Whole Blood 4.2 3.5 - 5.0 mmol/L [facility] Comment: Please note: Patients with WBC >100,000 may have falsely elevated Potassium levels. Contact the Clinical Chemistry Laboratory if there are any questions. ICa Whole Blood 1.18 1.15 - 1.33 mmol/L [facility] Comment: Note: ??Total bilirubin higher than 20 mg/dL may lead to falsely low ionized calcium. CL Whole Blood 106 98 - 107 mmol/L [facility] Gluc Whole Bld 194 65 - 199 mg/dL [facility] Comment:Diabetes: >=200 mg/d L plus symptoms. Lactate WB 2.6(H) 0.5 - 2.2 mmol/L [facility] FIO2 Art 40 % [facility] PF Ratio Art 138 [facility] Blood specimen (specimen) 07/17/2017 11:54 AM EDT 07/17/2017 11:54 AM EDT Sriram Contreras MD POINT OF CARE TEST ORDERABLES Performing Organization Address City/State/[facility] Co de Phone Number [facility] [place] [address] * Cardiac Enzymes (07/17/2017 5:42 AM EDT) Troponin-T <0.01 0.00 - 0.00 ng/mL [facility] Comment: The 99th percentile for Troponin T is less than 0.01 ng/mL, any detectable cTnT concentration using this assay should be considered elevated. According to the third universal definition of myocardial infarction the following criteria with a clinical presentation consistent with acute myocardial ischemia meets the diagnosis for a myocardial infarction (RI). Detection of a rise and/or fall of cTnT, with at least one value greater than the 99th percentile (> or = 0.01) and with at least one of the following ?? Symptoms of ischemia ?? New or presumed new significant JD-[id number]-Q wave (ST-T) changes or new left bundle [...] additional sample may be indicated. Reference: Third [place] Definition of Myocardial Infarction. Journal of the [place] [employer] 2012;60:1581-98 Creatine Kinase 47 0 - 200 unit/L [facility] Blood specimen (specimen) 07/17/2017 5:42 AM EDT 07/17/2017 5:42 AM EDT Narrative Resulting Agency Comment Spec In Lab Sriram Contreras MD CHEMISTRY ORDERABL ES [facility] [place] [address] * (ABNORMAL) Differential, Automated (07/17/2017 12:30 AM EDT) Neutrophil % 90.5 % [facility] Neutrophil Absolute 8.62(H) 1.70 - 6.10 x10(3)/mc L [facility] Lymph % 3.7 % [facility] Lymphocytes Abs 0.4(L) 0.9 - 3.2 x10(3)/mc L [facility] Monocyte % 4.9 % [facility] Monocyte Abs 0.5 0.3 - 0.9 x10(3)/mc L [facility] Eos % 0.0 % [facility] Eosinophils Abs 0.0 0.0 - 0.4 x10(3)/mc L [facility] Basophil % 0.1 % [facility] Baso Absolute 0.0 0.0 - 0.1 x10(3)/ L [facility] Immature Gran % 0.80 % [facility] Comment: Immature granulocytes(IG's)percentage and absolute count will include metamyelocytes, myelocytes, and promyelocytes. Blood smears from CBCs yielding IG's will be scanned manually for concordance. If this scan disagrees with the automated IG or if promyelocytes are noted, a manual differential will be performed. Immature Gran Absolute 0.08(H) 0.00 - 0.04 x10(3)/ L [facility] Blood specimen (specimen) 07/17/2017 12:30 AM EDT 07/17/2017 1:13 AM EDT Narrative Resulting Agency Comment Spec In Lab Sriram Contreras MD HEMATOLOGY ORDERAB LES Performing Organization Address City/State/[facility] Co de Phone Number [facility] [place] [address] * (ABNORMAL) Hemogram (07/17/2017 12:30 AM EDT) White Blood Cell 9.5 4.0 - 9.5 x10(3)/ L [facility] Red Blood Cell 3.98(L) 4.58 - 5.54 x10(6)/ L [facility] Hemoglobin 12.4(L) 13.7 - 16.5 gm/dL [facility] Hematocrit 36.7(L) 40.5 - 48.5 % [facility] Mean Cell Volume 92.2 82.9 - 93.1 fL [facility] Mean Cell Hemoglobin 31.2 27.5 - 32.1 pg [facility] Mean Cell Hemoglobin Concentration 33.8 32.0 - 35.7 gm/dL [facility] Platelet 133(L) 145 - 357 x10(3)/ L [facility] RDW Standard Deviation 47.7(H) 36.0 - 45.0 fL [facility] RDW coefficient of variation 13.8 11.4 - 13.8 % [facility] Mean Platelet Volume 10.9 7.6 - 12.9 fL [facility] NRBC% auto 0.0 % [facility] NRBC Absolute 0.000 0.000 - 0.000 x10(3)/mc L [facility] Blood specimen (specimen) 07/17/2017 12:30 AM EDT 07/17/2017 1:13 AM EDT Narrative Resulting Agency Comment Spec In Lab Sriram Contreras MD HEMATOLOGY ORDERAB LES [facility] [place] [address] * (ABNORMAL) Basic Metabolic Panel (non-fasting) (07/17/2017 12:30 AM EDT) Glucose 246(H) 65 - 199 mg/dL [facility] Comment:Diabetes: >=200 mg/d L plus symptoms Blood Urea Nitrogen 17 10 - 20 mg/dL [facility] Creatinine 0.73(L) 0.80 - 1.50 mg/dL [facility] Comment: Please note that the pediatric reference intervals supplied above were not validated at [facility]. Results from pediatric patients should be interpreted in conjunction to the patient's age, height and muscle mass. Sodium 137 135 - 145 mmol/L [facility] Potassium 4.7 3.5 - 5.0 mmol/L [facility] Comment: Please note: ??Patients with WBC >100,000 may have falsely elevated Potassium levels. ??For accurate Potassium quantification in these patients send serum separator tube (gold top) for subsequent determinations. ??Contact the Clinical Chemistry Laboratory if there are any questions. Chloride 103 98 - 107 mmol/L [facility] Carbon Dioxide 21(L) 22 - 31 mmol/L [facility] Anion Gap 13 5 - 15 mmol/L [facility] Calcium 8.3(L) 8.5 - 10.5 mg/dL [facility] Est Glomerular Filtration Rate >60 >=60 [facility] Comment: This estimated GFR [...] the following links into your internet browser. [email or web address] Blood specimen (specimen) 07/17/2017 12:30 AM EDT 07/17/2017 1:13 AM EDT Narrative Resulting Agency Comment Spec In Lab Sriram Contreras MD CHEMISTRY ORDERABL ES Performing Organization Address City/State/[facility] Co de Phone Number [facility] [place] [address] * Cardiac Enzymes (07/17/2017 12:30 AM EDT) Troponin-T <0.01 0.00 - 0.00 ng/mL [facility] Comment: The 99th percentile for Troponin T is less than 0.01 ng/mL, any detectable cTnT concentration using this assay should be considered elevated. According to the third universal definition of myocardial infarction the following criteria with a clinical presentation consistent with acute myocardial ischemia meets the diagnosis for a myocardial infarction (RI). Detection of a rise and/or fall of cTnT, with at least one value greater than the 99th percentile (> or = 0.01) and with at least one of the following ?? Symptoms of ischemia ?? New or presumed new significant DS-tiozdao-J wave (ST-T) changes or new left bundle [...] additional sample may be indicated. Reference: Third [place] Definition of Myocardial Infarction. Journal of the [place] [employer] 2012;60:1581-98 Creatine Kinase 60 0 - 200 unit/L [facility] Blood specimen (specimen) 07/17/2017 12:30 AM EDT 07/17/2017 1:13 AM EDT Narrative Resulting Agency Comment Spec In Lab Sriram Contreras MD CHEMISTRY ORDERABL ES [facility] [place] [address] * XR Chest PA or AP 1 [...] Enzymes (07/16/2017 5:10 PM EDT) Pathologist [facility] Troponin-T <0.01 0.00 - 0.00 ng/mL [facility] Comment: The 99th percentile for Troponin T is less than 0.01 ng/mL, any detectable cTnT concentration using this assay should be considered elevated. According to the third universal definition of myocardial infarction the following criteria with a clinical presentation consistent with acute myocardial ischemia meets the diagnosis for a myocardial infarction (RI). Detection of a rise and/or fall of cTnT, with at least one value greater than the 99th percentile (> or = 0.01) and with at least one of the following ?? Symptoms of ischemia ?? New or presumed new significant JL-[id number]-F wave (ST-T) changes or new left bundle [...] additional sample may be indicated. Reference: Third [place] Definition of Myocardial Infarction. Journal of the [place] [employer] 2012;60:1581-98 Creatine Kinase 63 0 - 200 unit/L [facility] Blood specimen (specimen) 07/16/2017 5:10 PM EDT 07/16/2017 5:20 PM EDT Narrative Resulting Agency Comment Spec In Lab Sriram Contreras MD CHEMISTRY ORDERABL ES [facility] [place] [address] * EKG 12 Lead (07/16/2017 4:46 PM EDT) Ventricular rate 70 BPM MUSE SYSTEM Atrial Rate 70 BPM MUSE SYSTEM P-R Interval 208 ms MUSE SYSTEM QRS Duration 96 ms MUSE SYSTEM Q-T Interval 404 ms MUSE SYSTEM QTC Calculated (Bezet) 436 ms MUSE SYSTEM Calculated P [place] 57 degrees MUSE SYSTEM Calculated R [place] 54 degrees MUSE SYSTEM Calculated T [place] 50 degrees MUSE SYSTEM INTERPRETATION Sinus rhythm with frequent Premature ventricular complexes in a pattern of bigeminy Otherwise normal ECG Confirmed by MD Bello Douglas ([id number]) on 07/17/2017 2:06:02 PM MUSE SYSTEM 07/16/2017 4:46 PM EDT 07/17/2017 2:06 PM EDT Sriram Contreras MD ECG ORDERABLES Performing Organization Address City/[facility]/ZIP Co de Phone Number MUSE SYSTEM * Magnesium (07/16/2017 4:00 AM EDT) [facility] Magnesium 0.82 0.69 - 1.07 mmol/L [facility] Blood specimen (specimen) Venous Draw / Unknown 07/16/2017 4:00 AM EDT 07/16/2017 4:18 AM EDT Narrative Resulting Agency Comment Spec In Lab Sriram Contreras MD CHEMISTRY ORDERABL ES Performing Organization Address City/[facility]/ZIP Co de Phone Number [facility] [place] [address] * (ABNORMAL) Differential, Automated (07/16/2017 4:00 AM EDT) [facility] Neutrophil % 81.3 % [facility] Neutrophil Absolute 8.31(H) 1.70 - 6.10 x10(3)/mc L [facility] Lymph % 10.7 % [facility] Lymphocytes Abs 1.1 0.9 - 3.2 x10(3)/mc L [facility] Monocyte % 6.8 % [facility] Monocyte Abs 0.7 0.3 - 0.9 x10(3)/mc L [facility] Eos % 0.3 % [facility] Eosinophils Abs 0.0 0.0 - 0.4 x10(3)/mc L [facility] Basophil % 0.4 % [facility] Baso Absolute 0.0 0.0 - 0.1 x10(3)/ L [facility] Immature Gran % 0.50 % [facility] Comment: Immature granulocytes(IG's)percentage and absolute count will include metamyelocytes, myelocytes, and promyelocytes. Blood smears from CBCs yielding IG's will be scanned manually for concordance. If this scan disagrees with the automated IG or if promyelocytes are noted, a manual differential will be performed. Immature Gran Absolute 0.05(H) 0.00 - 0.04 x10(3)/ L [facility] Blood specimen (specimen) 07/16/2017 4:00 AM EDT 07/16/2017 4:16 AM EDT Narrative Resulting Agency Comment Spec In Lab Sriram Contreras MD HEMATOLOGY ORDERAB LES Performing Organization Address City/State/[facility] Co de Phone Number [facility] [place] [address] * (ABNORMAL) Hemogram (07/16/2017 4:00 AM EDT) White Blood Cell 10.2(H) 4.0 - 9.5 x10(3)/ L [facility] Red Blood Cell 3.95(L) 4.58 - 5.54 x10(6)/ L [facility] Hemoglobin 12.4(L) 13.7 - 16.5 gm/dL [facility] Hematocrit 37.2(L) 40.5 - 48.5 % [facility] Mean Cell Volume 94.2(H) 82.9 - 93.1 fL [facility] Mean Cell Hemoglobin 31.4 27.5 - 32.1 pg [facility] Mean Cell Hemoglobin Concentration 33.3 32.0 - 35.7 gm/dL [facility] Platelet 126(L) 145 - 357 x10(3)/[facility] RDW Standard Deviation 50.0(H) 36.0 - 45.0 fL [facility] RDW coefficient of variation 14.3(H) 11.4 - 13.8 % [facility] Mean Platelet Volume 10.3 7.6 - 12.9 fL [facility] NRBC% auto 0.0 % [facility] NRBC Absolute 0.000 0.000 - 0.000 x10(3)/mc L [facility] Blood specimen (specimen) 07/16/2017 4:00 AM EDT 07/16/2017 4:16 AM EDT Narrative Resulting Agency Comment Spec In Lab Sriram Contreras MD HEMATOLOGY ORDERAB LES [facility] [place] [address] * (ABNORMAL) Basic Metabolic Panel (non-fasting) (07/16/2017 4:00 AM EDT) Glucose 131 65 - 199 mg/dL [facility] Comment:Diabetes: >=200 mg/d L plus symptoms Blood Urea Nitrogen 16 10 - 20 mg/dL [facility] Creatinine 0.82 0.80 - 1.50 mg/dL [facility] Comment: Please note that the pediatric reference intervals supplied above were not validated at [facility]. Results from pediatric patients should be interpreted in conjunction to the patient's age, height and muscle mass. Sodium 144 135 - 145 mmol/L [facility] Potassium 4.2 3.5 - 5.0 mmol/L [facility] Comment: Please note: ??Patients with WBC >100,000 may have falsely elevated Potassium levels. ??For accurate Potassium quantification in these patients send serum separator tube (gold top) for subsequent determinations. ??Contact the Clinical Chemistry Laboratory if there are any questions. Chloride 106 98 - 107 mmol/L [facility] Carbon Dioxide 21(L) 22 - 31 mmol/L [facility] Anion Gap 17(H) 5 - 15 mmol/L [facility] Calcium 8.1(L) 8.5 - 10.5 mg/dL [facility] Est Glomerular Filtration Rate >60 >=60 [facility] Comment: This estimated GFR [...] the following links into your internet browser. [email or web address] Blood specimen (specimen) 07/16/2017 4:00 AM EDT 07/16/2017 4:16 AM EDT Narrative Resulting Agency Comment Spec In Lab Sriram Contreras MD CHEMISTRY ORDERABL ES Performing Organization Address [facility]/ZIP Co de Phone Number [facility] [place] [address] * POCT Glucose (07/15/2017 12:26 PM EDT) Glucose, POC 75 65 - 199 mg/dL [facility] Comment: Supplemental ranges: <140 mg/dL before meals <180 mg/dL all other times of the day Blood specimen (specimen) 07/15/2017 12:26 PM EDT 07/15/2017 12:26 PM EDT Sriram Contreras MD POINT OF CARE TEST ORDERABLES Performing Organization Address City/[facility]/ZIP Co de Phone Number [facility] [place] [address] * (ABNORMAL) Basic Metabolic Panel (non-fasting) (07/15/2017 10:20 AM EDT) Glucose 111 65 - 199 mg/dL [facility] Comment:Diabetes: >=200 mg/d L plus symptoms Blood Urea Nitrogen 19 10 - 20 mg/dL [facility] Creatinine 0.96 0.80 - 1.50 mg/dL [facility] Comment: Please note that the pediatric reference intervals supplied above were not validated at [facility]. Results from pediatric patients should be interpreted in conjunction to the patient's age, height and muscle mass. Sodium 143 135 - 145 mmol/L [facility] Potassium 4.0 3.5 - 5.0 mmol/L [facility] Comment: Please note: ??Patients with WBC >100,000 may have falsely elevated Potassium levels. ??For accurate Potassium quantification in these patients send serum separator tube (gold top) for subsequent determinations. ??Contact the Clinical Chemistry Laboratory if there are any questions. Chloride 107 98 - 107 mmol/L [facility] Carbon Dioxide 22 22 - 31 mmol/L [facility] Anion Gap 14 5 - 15 mmol/L [facility] Calcium 8.2(L) 8.5 - 10.5 mg/dL [facility] Est Glomerular Filtration Rate >60 >=60 [facility] Comment: This estimated GFR [...] the following links into your internet browser. [email or web address] Blood specimen (specimen) 07/15/2017 10:20 AM EDT 07/15/2017 10:24 AM EDT Narrative Resulting Agency Comment Spec In Lab Sriram Contreras MD CHEMISTRY ORDERABL ES [facility] [place] [address] * POCT Glucose (07/15/2017 8:30 AM EDT) Glucose, POC 111 65 - 199 mg/dL [facility] Comment: Supplemental ranges: <140 mg/dL before meals <180 mg/dL all other times of the day Blood specimen (specimen) 07/15/2017 8:30 AM EDT 07/15/2017 8:30 AM EDT Sriram Contreras MD POINT OF CARE TEST ORDERABLES Performing Organization Address City/State/[facility] Co de Phone Number [facility] [place] [address] * (ABNORMAL) BLOOD GAS 2 ARTERIAL (07/15/2017 4:17 AM EDT) [facility] pH, Arterial 7.38 7.35 - 7.45 [facility] PCO2, Arterial 42 35 - 45 mmHg [facility] PO2, Arterial 61(L) 85 - 104 mmHg [facility] Bicarbonate, Arterial 24.6 20.0 - 26.0 mmol/L [facility] Base Excess, Arterial -0.4 -3.0 - 3.0 mmol/L [facility] Hgb Blood Gas 14.0 13.7 - 16.5 gm/dL [facility] Oxyhemoglobin, Arterial 90.6(L) 94.0 - 97.0 % [facility] Carboxyhemoglob in, Arterial 0.2 % [facility] Comment: Nonsmokers: 0.5-1.5% COHB Smokers: Variable, but usually less than 10% Toxic: 20-30% COHB Lethal: Greater than 60% COHB Methemoglobin, Arterial 0.5 <=1.5 % [facility] Na Whole Blood 139 135 - 145 mmol/L [facility] K Whole Blood 4.1 3.5 - 5.0 mmol/L [facility] Comment: Please note: Patients with WBC >100,000 may have falsely elevated Potassium levels. Contact the Clinical Chemistry Laboratory if there are any questions. ICa Whole Blood 1.19 1.15 - 1.33 mmol/L [facility] Comment: Note: ??Total bilirubin higher than 20 mg/dL may lead to falsely low ionized calcium. CL Whole Blood 106 98 - 107 mmol/L [facility] Gluc Whole Bld 130 65 - 199 mg/dL [facility] Comment:Diabetes: >=200 mg/d L plus symptoms. Lactate WB 1.9 0.5 - 2.2 mmol/L [facility] FIO2 Art 35 % [facility] PF Ratio Art 174 [facility] Blood specimen (specimen) 07/15/2017 4:17 AM EDT 07/15/2017 4:17 AM EDT Sriram Contreras MD POINT OF CARE TEST ORDERABLES Performing Organization Address City/State/[facility] Co de Phone Number [facility] [place] [address] * (ABNORMAL) Differential, Automated (07/15/2017 4:15 AM EDT) Neutrophil % 84.7 % [facility] Neutrophil Absolute 12.39(H) 1.70 - 6.10 x10(3)/mc L [facility] Lymph % 6.2 % [facility] Lymphocytes Abs 0.9 0.9 - 3.2 x10(3)/mc L [facility] Monocyte % 8.0 % [facility] Monocyte Abs 1.2(H) 0.3 - 0.9 x10(3)/mc L [facility] Eos % 0.0 % [facility] Eosinophils Abs 0.0 0.0 - 0.4 x10(3)/mc L [facility] Basophil % 0.1 % [facility] Baso Absolute 0.0 0.0 - 0.1 x10(3)/mc L [facility] Immature Gran % 1.00 % [facility] Comment: Immature granulocytes(IG's)percentage and absolute count will include metamyelocytes, myelocytes, and promyelocytes. Blood smears from CBCs yielding IG's will be scanned manually for concordance. If this scan disagrees with the automated IG or if promyelocytes are noted, a manual differential will be performed. Immature Gran Absolute 0.14(H) 0.00 - 0.04 x10(3)/mc L [facility] Blood specimen (specimen) 07/15/2017 4:15 AM EDT 07/15/2017 4:28 AM EDT Narrative Resulting Agency Comment Spec In Lab Sriram Contreras MD HEMATOLOGY ORDERAB LES Performing Organization Address City/State/[facility] Co de Phone Number [facility] [place] [address] * (ABNORMAL) Hemogram (07/15/2017 4:15 AM EDT) White Blood Cell 14.6(H) 4.0 - 9.5 x10(3)/mc L [facility] Red Blood Cell 4.16(L) 4.58 - 5.54 x10(6)/mc L [facility] Hemoglobin 13.0(L) 13.7 - 16.5 gm/dL [facility] Hematocrit 38.9(L) 40.5 - 48.5 % [facility] Mean Cell Volume 93.5(H) 82.9 - 93.1 fL [facility] Mean Cell Hemoglobin 31.3 27.5 - 32.1 pg [facility] Mean Cell Hemoglobin Concentration 33.4 32.0 - 35.7 gm/dL [facility] Platelet 135(L) 145 - 357 x10(3)/mc L [facility] RDW Standard Deviation 48.8(H) 36.0 - 45.0 fL [facility] RDW coefficient of variation 14.2(H) 11.4 - 13.8 % [facility] Mean Platelet Volume 10.0 7.6 - 12.9 [facility] NRBC% auto 0.0 % [facility] NRBC Absolute 0.000 0.000 - 0.000 x10(3)/mc L [facility] Blood specimen (specimen) 07/15/2017 4:15 AM EDT 07/15/2017 4:28 AM EDT Narrative Resulting Agency Comment Spec In Lab Sriram Contreras MD HEMATOLOGY ORDERAB LES Performing Organization Address [facility] Co de Phone Number [facility] [place] [address] * Potassium (07/14/2017 8:20 PM EDT) Potassium 4.4 3.5 - 5.0 mmol/L [facility] Comment: Please note: ??Patients [...] CHEMISTRY ORDERABL ES Performing Organization Address [facility] Co de Phone Number [facility] [place] [address] * (ABNORMAL) Magnesium (07/14/2017 8:20 PM EDT) Magnesium 1.08(H) 0.69 - 1.07 mmol/L [facility] Blood specimen (specimen) 07/14/2017 8:20 PM EDT 07/14/2017 8:31 PM EDT Narrative Resulting Agency Comment Spec In Lab Sriram Contreras MD CHEMISTRY ORDERABL ES Performing Organization Address [facility] Co de Phone Number [facility] [place] [address] * Magnesium (07/14/2017 4:30 PM EDT) Pathologist [facility] Magnesium 0.86 0.69 - 1.07 mmol/L [facility] Blood specimen (specimen) 07/14/2017 4:30 PM EDT 07/14/2017 4:50 PM EDT Narrative Resulting Agency Comment Spec In Lab Sriram Contreras MD CHEMISTRY ORDERABL ES Performing Organization Address [facility] de Phone Number [facility] [place] [address] * POCT Glucose (07/14/2017 4:26 PM EDT) [facility] Glucose, POC 146 65 - 199 mg/dL [facility] Comment: Supplemental ranges: <140 mg/dL before meals <180 mg/dL all other times of the day Blood specimen (specimen) 07/14/2017 4:26 PM EDT 07/14/2017 4:26 PM EDT Sriram Contreras MD POINT OF CARE TEST ORDERABLES Performing Organization Address [facility] de Phone Number [facility] [place] [address] * EKG 12 Lead (07/14/2017 12:37 PM EDT) Pathologist [facility] Ventricular rate 67 BPM MUSE SYSTEM Atrial Rate 67 BPM MUSE SYSTEM P-R Interval 216 ms MUSE SYSTEM QRS Duration 100 ms MUSE SYSTEM Q-T Interval 438 ms MUSE SYSTEM QTC Calculated (Bezet) 462 ms MUSE SYSTEM Calculated P [place] 58 degrees MUSE SYSTEM Calculated R [place] 56 degrees MUSE SYSTEM Calculated T [place] 38 degrees MUSE SYSTEM INTERPRETATION Sinus rhythm with 1st degree A-V block Otherwise normal ECG When compared with ECG of 29-MAR-1997 12:50, NC interval has increased Confirmed by MD Radha, Daryl ([id number]) on 07/14/2017 5:07:22 PM MUSE SYSTEM 07/14/2017 12:3 7 PM EDT 07/14/2017 5:07 PM EDT Sriram Contreras MD ECG ORDERABLES MUSE SYSTEM * POCT Glucose (07/14/2017 12:05 PM EDT) Glucose, POC 147 65 - 199 mg/dL [facility] Comment: Supplemental ranges: <140 mg/dL before meals <180 mg/dL all other times of the day Blood specimen (specimen) 07/14/2017 12:05 PM EDT 07/14/2017 12:05 PM EDT Sriram Contreras MD POINT OF CARE TEST ORDERABLES Performing Organization Address [facility] Co de Phone Number [facility] [place] [address] * POCT Glucose (07/14/2017 8:25 AM EDT) Glucose, POC 140 65 - 199 mg/dL [facility] Comment: Supplemental ranges: <140 mg/dL before meals <180 mg/dL all other times of the day Blood specimen (specimen) 07/14/2017 8:25 AM EDT 07/14/2017 8:25 AM EDT Sriram Contreras MD POINT OF CARE TEST ORDERABLES Performing Organization Address [facility] Co de Phone Number [facility] [place] [address] * (ABNORMAL) Differential, Automated (07/14/2017 12:36 AM EDT) Neutrophil % 90.3 % [facility] Neutrophil Absolute 13.17(H) 1.70 - 6.10 x10(3)/mc L [facility] Lymph % 3.8 % [facility] Lymphocytes Abs 0.6(L) 0.9 - 3.2 x10(3)/mc L [facility] Monocyte % 5.4 % [facility] Monocyte Abs 0.8 0.3 - 0.9 x10(3)/[facility] Eos % 0.0 % [facility] Eosinophils Abs 0.0 0.0 - 0.4 x10(3)/[facility] Basophil % 0.1 % [facility] Baso Absolute 0.0 0.0 - 0.1 x10(3)/[facility] Immature Gran % 0.40 % [facility] Comment: Immature granulocytes(IG's)percentage and absolute count will include metamyelocytes, myelocytes, and promyelocytes. Blood smears from CBCs yielding IG's will be scanned manually for concordance. If this scan disagrees with the automated IG or if promyelocytes are noted, a manual differential will be performed. Immature Gran Absolute 0.06(H) 0.00 - 0.04 x10(3)/[facility] Blood specimen (specimen) 07/14/2017 12:36 AM EDT 07/14/2017 12:41 AM EDT Narrative Resulting Agency Comment Spec In Lab Sriram Contreras MD HEMATOLOGY ORDERAB LES Performing Organization Address City/State/[facility] Co de Phone Number [facility] [place] [address] * (ABNORMAL) Hemogram (07/14/2017 12:36 AM EDT) White Blood Cell 14.6(H) 4.0 - 9.5 x10(3)/[facility] Red Blood Cell 4.57(L) 4.58 - 5.54 x10(6)/[facility] Hemoglobin 14.1 13.7 - 16.5 gm/dL [facility] Hematocrit 42.1 40.5 - 48.5 % [facility] Mean Cell Volume 92.1 82.9 - 93.1 fL [facility] Mean Cell Hemoglobin 30.9 27.5 - 32.1 pg [facility] Mean Cell Hemoglobin Concentration 33.5 32.0 - 35.7 gm/dL [facility] Platelet 157 145 - 357 x10(3)/mc L [facility] RDW Standard Deviation 48.6(H) 36.0 - 45.0 [facility] RDW coefficient of variation 14.4(H) 11.4 - 13.8 % [facility] Mean Platelet Volume 10.2 7.6 - 12.9 [facility] NRBC% auto 0.0 % [facility] NRBC Absolute 0.000 0.000 - 0.000 x10(3)/mc L [facility] Blood specimen (specimen) 07/14/2017 12:36 AM EDT 07/14/2017 12:41 AM EDT Narrative Resulting Agency Comment Spec In Lab Sriram Contreras MD HEMATOLOGY ORDERAB LES Performing Organization Address City/[facility]/ZIP Co de Phone Number [facility] [place] [address] * (ABNORMAL) Magnesium (07/14/2017 12:36 AM EDT) Magnesium 0.65(L) 0.69 - 1.07 mmol/L [facility] Blood specimen (specimen) 07/14/2017 12:36 AM EDT 07/14/2017 12:41 AM EDT Narrative Resulting Agency Comment Spec In Lab Sriram Contreras MD CHEMISTRY ORDERABL ES Performing Organization Address City/[facility]/ZIP Co de Phone Number [facility] [place] [address] * Phosphorus (07/14/2017 12:36 AM EDT) Phosphorus 3.3 2.5 - 4.5 mg/dL [facility] Blood specimen (specimen) 07/14/2017 12:36 AM EDT 07/14/2017 12:41 AM EDT Narrative Resulting Agency Comment Spec In Lab Sriram Contreras MD CHEMISTRY ORDERABL ES Performing Organization Address [facility]/ZIP Co de Phone Number [facility] [place] [address] * Prealbumin (07/14/2017 12:36 AM EDT) Prealbumin 23 20 - 40 mg/dL [facility] Comment: Prealbumin levels are generally lower in the pediatric population; adult concentrations are usually attained near puberty. Blood specimen (specimen) 07/14/2017 12:36 AM EDT 07/14/2017 12:45 AM EDT Narrative Resulting Agency Comment Spec In Lab Sriram Contreras MD CHEMISTRY ORDERABL ES Performing Organization Address [facility] Co de Phone Number [facility] [place] [address] * (ABNORMAL) Basic Metabolic Panel (non-fasting) (07/14/2017 12:36 AM EDT) Glucose 161 65 - 199 mg/dL [facility] Comment:Diabetes: >=200 mg/d L plus symptoms Blood Urea Nitrogen 16 10 - 20 mg/dL [facility] Creatinine 0.97 0.80 - 1.50 mg/dL [facility] Comment: Please note that the pediatric reference intervals supplied above were not validated at [facility]. Results from pediatric patients should be interpreted in conjunction to the patient's age, height and muscle mass. Sodium 144 135 - 145 mmol/L [facility] Potassium 4.5 3.5 - 5.0 mmol/L [facility] Comment: result rechecked- Please note: ??Patients with WBC >100,000 may have falsely elevated Potassium levels. ??For accurate Potassium quantification in these patients send serum separator tube (gold top) for subsequent determinations. ??Contact the Clinical Chemistry Laboratory if there are any questions. Chloride 108(H) 98 - 107 mmol/L [facility] Carbon Dioxide 19(L) 22 - 31 mmol/L [facility] Anion Gap 17(H) 5 - 15 mmol/L [facility] Calcium 7.7(L) 8.5 - 10.5 mg/dL [facility] Est Glomerular Filtration Rate >60 >=60 [facility] Comment: This estimated GFR [...] the following links into your internet browser. [email or web address] Blood specimen (specimen) 07/14/2017 12:36 AM EDT 07/14/2017 12:41 AM EDT Narrative Resulting Agency Comment Spec In Lab Sriram Contreras MD CHEMISTRY ORDERABL ES [facility] [place] [address] * (ABNORMAL) Basic Metabolic Panel (non-fasting) (07/13/2017 9:33 PM EDT) Glucose 147 65 - 199 mg/dL [facility] Comment:Diabetes: >=200 mg/d L plus symptoms Blood Urea Nitrogen 17 10 - 20 mg/dL [facility] Creatinine 1.16 0.80 - 1.50 mg/dL [facility] Comment: Please note that the pediatric reference intervals supplied above were not validated at [facility]. Results from pediatric patients should be interpreted in conjunction to the patient's age, height and muscle mass. Sodium Not Perf 135 - 145 mmol/L [facility] Comment: Unable to quantitate due to sample hemolysis. ??Sample redraw suggested. Called by: michael, Read back by: maddie rucker, Date/Time:07/13/17 22:12. Potassium Not Perf 3.5 - 5.0 mmol/L [facility] Comment: Unable to quantitate due to [...] Chloride Not Perf 98 - 107 mmol/L [facility] Comment: Unable to quantitate due to sample hemolysis. ??Sample redraw suggested. Called by: michael, Read back by: maddie rucker, Date/Time:07/13/17 22:12. Carbon Dioxide 18(L) 22 - 31 mmol/L [facility] Anion Gap Not Calculated 5 - 15 mmol/L [facility] Calcium 7.3(L) 8.5 - 10.5 mg/dL [facility] Est Glomerular Filtration Rate >60 >=60 [facility] Comment: This estimated GFR [...] the following links into your internet browser. [email or web address] Blood specimen (specimen) 07/13/2017 9:33 PM EDT 07/13/2017 9:41 PM EDT Narrative Resulting Agency Comment Spec In Lab Sriram Contreras MD CHEMISTRY ORDERABL ES [facility] [place] [address] * XR Chest PA or AP 1 [...] PM EDT 07/13/2017 7:35 PM EDT Narrative [facility] - 07/13/2017 7:35 PM EDT Specimen requisition ordered. ??Separate Pathology report to follow Sriram Contreras MD PATHOLOGY/CYTOLOGY ORDERABLES [facility] [place] [address] * Specimen to Pathology (surgical or derm) (07/13/2017 7:05 PM EDT) AP Specimen 07/13/2017 7:05 PM EDT 07/13/2017 7:05 PM EDT [facility] - 07/13/2017 7:05 PM EDT Specimen requisition ordered. ??Separate Pathology report to follow Sriram Contreras MD PATHOLOGY/CYTOLOGY ORDERABLES Performing Organization Address [facility] [place] [place] [address] * Specimen to Pathology (surgical or derm) (07/13/2017 6:21 PM EDT) AP Specimen 07/13/2017 6:21 PM EDT 07/13/2017 6:21 PM EDT [facility] - 07/13/2017 6:21 PM EDT Specimen requisition ordered. ??Separate Pathology report to follow Sriram Contreras MD PATHOLOGY/CYTOLOGY ORDERABLES Performing Organization Address [facility] [place] [address] * Specimen to Pathology (surgical or derm) (07/13/2017 5:30 PM EDT) AP Specimen 07/13/2017 5:30 PM EDT 07/13/2017 5:30 PM EDT [facility] - 07/13/2017 5:30 PM EDT Specimen requisition ordered. ??Separate Pathology report to follow Sriram Contreras MD PATHOLOGY/CYTOLOGY ORDERABLES Performing Organization Address [facility] [place] [address] * Specimen to Pathology (surgical or derm) (07/13/2017 5:30 PM EDT) AP Specimen 07/13/2017 5:30 PM EDT 07/13/2017 5:30 PM EDT [facility] - 07/13/2017 5:30 PM EDT Specimen requisition ordered. ??Separate Pathology report to follow Sriram Contreras MD PATHOLOGY/CYTOLOGY ORDERABLES [facility] [place] [address] * Specimen to Pathology (surgical or derm) (07/13/2017 5:30 PM EDT) AP Specimen 07/13/2017 5:30 PM EDT 07/13/2017 5:30 PM EDT Narrative [facility] - 07/13/2017 5:30 PM EDT Specimen requisition ordered. ??Separate Pathology report to follow Sriram Contreras MD PATHOLOGY/CYTOLOGY ORDERABLES Performing Organization Address City/[facility]/[place] [address] * Specimen to Pathology (surgical or derm) (07/13/2017 5:30 PM EDT) AP Specimen 07/13/2017 5:30 PM EDT 07/13/2017 5:30 PM EDT Narrative [facility] - 07/13/2017 5:30 PM EDT Specimen requisition ordered. ??Separate Pathology report to follow Sriram Contreras MD PATHOLOGY/CYTOLOGY ORDERABLES Performing Organization Address City/[facility]/ZIP Co de Phone Number [facility] [place] [address] * Specimen to Pathology (surgical or derm) (07/13/2017 5:21 PM EDT) AP Specimen 07/13/2017 5:21 PM EDT 07/13/2017 5:21 PM EDT Narrative [facility] - 07/13/2017 5:21 PM EDT Specimen requisition ordered. ??Separate Pathology report to follow Sriram Contreras MD PATHOLOGY/[place] [address] * Specimen to Pathology (surgical or derm) (07/13/2017 5:21 PM EDT) AP Specimen 07/13/2017 5:21 PM EDT 07/13/2017 5:21 PM EDT [facility] - 07/13/2017 5:21 PM EDT Specimen requisition ordered. ??Separate Pathology report to follow Sriram Contreras MD PATHOLOGY/CYTOLOGY ORDERABLES Performing Organization Address [facility] [place] [place] [address] * Specimen to Pathology (surgical or derm) (07/13/2017 5:21 PM EDT) AP Specimen 07/13/2017 5:21 PM EDT 07/13/2017 5:21 PM EDT [facility] - 07/13/2017 5:21 PM EDT Specimen requisition ordered. ??Separate Pathology report to follow Sriram Contreras MD PATHOLOGY/CYTOLOGY ORDERABLES Performing Organization Address [facility] [place] [address] * Specimen to Pathology (surgical or derm) (07/13/2017 5:16 PM EDT) AP Specimen 07/13/2017 5:16 PM EDT 07/13/2017 5:16 PM EDT [facility] - 07/13/2017 5:16 PM EDT Specimen requisition ordered. ??Separate Pathology report to follow Sriram Contreras MD PATHOLOGY/CYTOLOGY ORDERABLES Performing Organization Address [facility] [place] [address] * Specimen to Pathology (surgical or derm) (07/13/2017 5:05 PM EDT) AP Specimen 07/13/2017 5:05 PM EDT 07/13/2017 5:05 PM EDT [facility] - 07/13/2017 5:05 PM EDT Specimen requisition ordered. ??Separate Pathology report to follow Sriram Contreras MD PATHOLOGY/[place] [address] * Specimen to Pathology (surgical or derm) (07/13/2017 5:05 PM EDT) AP Specimen 07/13/2017 5:05 PM EDT 07/13/2017 5:05 PM EDT Narrative [facility] - 07/13/2017 5:05 PM EDT Specimen requisition ordered. ??Separate Pathology report to follow Sriram Contreras MD PATHOLOGY/CYTOLOGY ORDERABLES Performing Organization Address City/[facility]/[place] [address] * Specimen to Pathology (surgical or derm) (07/13/2017 4:39 PM EDT) AP Specimen 07/13/2017 4:39 PM EDT 07/13/2017 4:39 PM EDT Narrative [facility] - 07/13/2017 4:39 PM EDT Specimen requisition ordered. ??Separate Pathology report to follow Sriram Contreras MD PATHOLOGY/CYTOLOGY ORDERABLES Performing Organization Address City/[facility]/ZIP Co de Phone Number [facility] [place] [address] * Specimen to Pathology (surgical or derm) (07/13/2017 4:35 PM EDT) AP Specimen 07/13/2017 4:35 PM EDT 07/13/2017 4:35 PM EDT [facility] - 07/13/2017 4:35 PM EDT Specimen requisition ordered. ??Separate Pathology report to follow Sriram Contreras MD PATHOLOGY/CYTOLOGY ORDERABLES Performing Organization Address City/[facility]/[place] [address] * Specimen to Pathology (surgical or derm) (07/13/2017 4:35 PM EDT) AP Specimen 07/13/2017 4:35 PM EDT 07/13/2017 4:35 PM EDT Narrative [facility] - 07/13/2017 4:35 PM EDT Specimen requisition ordered. ??Separate Pathology report to follow Sriram Contreras MD PATHOLOGY/CYTOLOGY ORDERABLES Performing Organization Address [facility] [place] [address] * Specimen to Pathology (surgical or derm) (07/13/2017 3:52 PM EDT) AP Specimen 07/13/2017 3:52 PM EDT 07/13/2017 3:52 PM EDT Narrative [facility] - 07/13/2017 3:52 PM EDT Specimen requisition ordered. ??Separate Pathology report to follow Sriram Contreras MD PATHOLOGY/CYTOLOGY ORDERABLES Performing Organization Address [facility] [place] [address] * Specimen to Pathology (surgical or derm) (07/13/2017 3:52 PM EDT) AP Specimen 07/13/2017 3:52 PM EDT 07/13/2017 3:52 PM EDT Narrative [facility] - 07/13/2017 3:52 PM EDT Specimen requisition ordered. ??Separate Pathology report to follow Sriram Contreras MD PATHOLOGY/CYTOLOGY ORDERABLES Performing Organization Address [facility] Co de Phone Number [facility] [place] [address] * (ABNORMAL) BLOOD GAS 2 ARTERIAL (07/13/2017 3:46 PM EDT) pH, Arterial 7.31(L) 7.35 - 7.45 [facility] PCO2, Arterial 37 35 - 45 mmHg [facility] PO2, Arterial 103 85 - 104 mmHg [facility] Bicarbonate, Arterial 17.8(L) 20.0 - 26.0 mmol/L [facility] Base Excess, Arterial -8.5(L) -3.0 - 3.0 mmol/L [facility] Hgb Blood Gas 15.1 13.7 - 16.5 gm/dL [facility] Oxyhemoglobin, Arterial 96.6 94.0 - 97.0 % [facility] Carboxyhemoglob in, Arterial 0.4 % [facility] Comment: Nonsmokers: 0.5-1.5% COHB Smokers: Variable, but usually less than 10% Toxic: 20-30% COHB Lethal: Greater than 60% COHB Methemoglobin, Arterial 0.3 <=1.5 % [facility] Na Whole Blood 139 135 - 145 mmol/L [facility] K Whole Blood 4.5 3.5 - 5.0 mmol/L [facility] Comment: Please note: Patients with WBC >100,000 may have falsely elevated Potassium levels. Contact the Clinical Chemistry Laboratory if there are any questions. ICa Whole Blood 1.12(L) 1.15 - 1.33 mmol/L [facility] Comment: Note: ??Total bilirubin higher than 20 mg/dL may lead to falsely low ionized calcium. CL Whole Blood 110(H) 98 - 107 mmol/L [facility] Gluc Whole Bld 118 65 - 199 mg/dL [facility] Comment:Diabetes: >=200 mg/d L plus symptoms. Lactate WB 2.9(H) 0.5 - 2.2 mmol/L [facility] Blood specimen (specimen) 07/13/2017 3:46 PM EDT 07/13/2017 3:46 PM EDT Sriram Contreras MD POINT OF CARE TEST ORDERABLES [facility] [place] [address] * (ABNORMAL) BLOOD GAS 2 ARTERIAL (07/13/2017 2:06 PM EDT) pH, Arterial 7.32(L) 7.35 - 7.45 [facility] PCO2, Arterial 32(L) 35 - 45 mmHg [facility] PO2, Arterial 96 85 - 104 mmHg [facility] Bicarbonate, Arterial 16.0(L) 20.0 - 26.0 mmol/L [facility] Base Excess, Arterial -10.1(L) -3.0 - 3.0 mmol/L [facility] Hgb Blood Gas 14.0 13.7 - 16.5 gm/dL [facility] Oxyhemoglobin, Arterial 96.1 94.0 - 97.0 % [facility] Carboxyhemoglob in, Arterial 1.1 % [facility] Comment: Nonsmokers: 0.5-1.5% COHB Smokers: Variable, but usually less than 10% Toxic: 20-30% COHB Lethal: Greater than 60% COHB Methemoglobin, Arterial 0.3 <=1.5 % [facility] Na Whole Blood 139 135 - 145 mmol/L [facility] K Whole Blood 3.8 3.5 - 5.0 mmol/L [facility] Comment: Please note: Patients with WBC >100,000 may have falsely elevated Potassium levels. Contact the Clinical Chemistry Laboratory if there are any questions. ICa Whole Blood 1.02(L) 1.15 - 1.33 mmol/L [facility] Comment: Note: ??Total bilirubin higher than 20 mg/dL may lead to falsely low ionized calcium. CL Whole Blood 115(H) 98 - 107 mmol/L [facility] Gluc Whole Bld 111 65 - 199 mg/dL [facility] Comment:Diabetes: >=200 mg/d L plus symptoms. Lactate WB 2.5(H) 0.5 - 2.2 mmol/L [facility] Blood specimen (specimen) 07/13/2017 2:06 PM EDT 07/13/2017 2:06 PM EDT Sriram Contreras MD POINT OF CARE TEST ORDERABLES [facility] [place] [address] * (ABNORMAL) Comprehensive metabolic panel (non-fasting) (07/13/2017 12:56 PM EDT) Glucose 155 65 - 199 mg/dL [facility] Comment:Diabetes: >=200 mg/d L plus symptoms Blood Urea Nitrogen 17 10 - 20 mg/dL [facility] Creatinine 1.06 0.80 - 1.50 mg/dL [facility] Comment: Please note that the pediatric reference intervals supplied above were not validated at [facility]. Results from pediatric patients should be interpreted in conjunction to the patient's age, height and muscle mass. Sodium 142 135 - 145 mmol/L [facility] Potassium 5.7(H) 3.5 - 5.0 mmol/L [facility] Comment: Please note: ??Patients with WBC >100,000 may have falsely elevated Potassium levels. ??For accurate Potassium quantification in these patients send serum separator tube (gold top) for subsequent determinations. ??Contact the Clinical Chemistry Laboratory if there are any questions. Chloride 108(H) 98 - 107 mmol/L [facility] Carbon Dioxide 20(L) 22 - 31 mmol/L [facility] Anion Gap 14 5 - 15 mmol/L [facility] Calcium 7.9(L) 8.5 - 10.5 mg/dL [facility] Protein, Total 6.2 6.1 - 8.0 gm/dL [facility] Albumin 3.6 3.2 - 5.2 gm/dL [facility] Aspartate Aminotransferase 15 0 - 39 unit/L [facility] Alanine Aminotransferase 13 0 - 55 unit/L [facility] Alkaline Phosphatase 70 40 - 120 unit/L [facility] Bilirubin, Total 0.2 0.2 - 1.3 mg/dL [facility] Est Glomerular Filtration Rate >60 >=60 [facility] Comment: This estimated GFR [...] the following links into your internet browser. [email or web address] Blood specimen (specimen) 07/13/2017 12:56 PM EDT 07/13/2017 1:02 PM EDT Narrative Resulting Agency Comment Spec In Lab Sriram Contreras MD CHEMISTRY ORDERABL ES [facility] [place] [address] * (ABNORMAL) BLOOD GAS 2 ARTERIAL (07/13/2017 12:15 PM EDT) pH, Arterial 7.34(L) 7.35 - 7.45 [facility] PCO2, Arterial 39 35 - 45 mmHg [facility] PO2, Arterial 68(L) 85 - 104 mmHg [facility] Bicarbonate, Arterial 20.4 20.0 - 26.0 mmol/L [facility] Base Excess, Arterial -5.4(L) -3.0 - 3.0 mmol/L [facility] Hgb Blood Gas 15.8 13.7 - 16.5 gm/dL [facility] Oxyhemoglobin, Arterial 91.8(L) 94.0 - 97.0 % [facility] Carboxyhemoglob in, Arterial 0.9 % [facility] Comment: Nonsmokers: 0.5-1.5% COHB Smokers: Variable, but usually less than 10% Toxic: 20-30% COHB Lethal: Greater than 60% COHB Methemoglobin, Arterial 0.3 <=1.5 % [facility] Na Whole Blood 138 135 - 145 mmol/L [facility] K Whole Blood 5.7(H) 3.5 - 5.0 mmol/L [facility] Comment: Please note: Patients with WBC >100,000 may have falsely elevated Potassium levels. Contact the Clinical Chemistry Laboratory if there are any questions. ICa Whole Blood 1.17 1.15 - 1.33 mmol/L [facility] Comment: Note: ??Total bilirubin higher than 20 mg/dL may lead to falsely low ionized calcium. CL Whole Blood 109(H) 98 - 107 mmol/L [facility] Gluc Whole Bld 125 65 - 199 mg/dL [facility] Comment:Diabetes: >=200 mg/d L plus symptoms. Lactate WB 3.7(H) 0.5 - 2.2 mmol/L [facility] Blood specimen (specimen) 07/13/2017 12:15 PM EDT 07/13/2017 12:15 PM EDT Sriram Contreras MD POINT OF CARE TEST ORDERABLES [facility] [place] [address] * Surgical Pathology Report (07/13/2017 12:04 PM EDT) Final Diagnosis [id number] ? 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 07/21/2017 9:57 AM EDT [facility] MOUTH REGION STRUCTURE / Unknown 07/13/2017 [...] Contreras MD PATHOLOGY/CYTOLOGY ORDERABLES Performing Organization Address City/[facility]/ZIP Co de Phone Number [facility] [place] [address] * Specimen to Pathology (surgical or derm) (07/13/2017 12:02 PM EDT) AP Specimen 07/13/2017 12:0 2 PM EDT 07/13/2017 12:02 PM EDT Narrative [facility] - 07/13/2017 12:02 PM EDT Specimen requisition ordered. ??Separate Pathology report to follow Sriram Contreras MD PATHOLOGY/CYTOLOGY ORDERABLES Performing Organization Address City/[facility]/[place] [address] * (ABNORMAL) BLOOD GAS 2 ARTERIAL (07/13/2017 10:35 AM EDT) pH, Arterial 7.31(L) 7.35 - 7.45 [facility] PCO2, Arterial 45 35 - 45 mmHg [facility] PO2, Arterial 87 85 - 104 mmHg [facility] Bicarbonate, Arterial 22.2 20.0 - 26.0 mmol/L [facility] Base Excess, Arterial -4.0(L) -3.0 - 3.0 mmol/L [facility] Hgb Blood Gas 15.6 13.7 - 16.5 gm/dL [facility] Oxyhemoglobin, Arterial 95.0 94.0 - 97.0 % [facility] Carboxyhemoglob in, Arterial 0.9 % [facility] Comment: Nonsmokers: 0.5-1.5% COHB Smokers: Variable, but usually less than 10% Toxic: 20-30% COHB Lethal: Greater than 60% COHB Methemoglobin, Arterial 0.0 <=1.5 % [facility] Na Whole Blood 138 135 - 145 mmol/L [facility] K Whole Blood 5.0 3.5 - 5.0 mmol/L [facility] Comment: Please note: Patients with WBC >100,000 may have falsely elevated Potassium levels. Contact the Clinical Chemistry Laboratory if there are any questions. ICa Whole Blood 1.20 1.15 - 1.33 mmol/L [facility] Comment: Note: ??Total bilirubin higher than 20 mg/dL may lead to falsely low ionized calcium. CL Whole Blood 108(H) 98 - 107 mmol/L [facility] Gluc Whole Bld 119 65 - 199 mg/dL [facility] Comment:Diabetes: >=200 mg/d L plus symptoms. Lactate WB 2.1 0.5 - 2.2 mmol/L [facility] Blood specimen (specimen) 07/13/2017 10:35 AM EDT 07/13/2017 10:35 AM EDT Sriram Contreras MD POINT OF CARE TEST ORDERABLES [facility] [place] [address] * ABORH Recheck Status (07/13/2017 6:27 AM EDT) ABORH Recheck Order Order Placed [facility] ABORH Type Recheck Complete [facility] Blood specimen (specimen) 07/13/2017 6:27 AM EDT 07/13/2017 6:38 AM EDT Narrative Resulting Agency Comment Spec In Lab Sriram Contreras MD BLOOD BANK LAB ORD ERABLES Performing Organization Address [facility]/ZIP Co de Phone Number [facility] [place] [address] * Antibody screen (07/13/2017 6:27 AM EDT) Ab Screen Interp Negative [facility] Expires at [id number] on: 07/16/2017 [facility] Blood specimen (specimen) 07/13/2017 6:27 AM EDT 07/13/2017 6:43 AM EDT Narrative Resulting Agency Comment Spec In Lab Sriram Contreras MD BLOOD BANK LAB ORD ERABLES Performing Organization Address [facility]/ZIP Co de Phone Number [facility] [place] [address] * ABO/Rh Typing (07/13/2017 6:27 AM EDT) ABORH Type O Neg [facility] Blood specimen (specimen) 07/13/2017 6:27 AM EDT 07/13/2017 6:43 AM EDT Narrative Resulting Agency Comment Spec In Lab Sriram Contreras MD BLOOD BANK LAB ORD ERABLES Performing Organization Address City/[facility] Co de Phone Number [facility] [place] [address] documented in this encounter Visit Diagnoses Diagnosis [...] dose, Starting on Wed07/17/17 at 2144, Until [place] 07/29/17 at 1535, Other, for HR <40, [...] restart at 50% of previous rate. Call warehouse order selector if goal not achieved at maximum rate., [...] Intravenous, EVERY 6 HOURS PRN, Starting on [place] 07/18/17 at 0306, Until [place] 07/18/17 at 1313, Agitation, Routine Given 07/18/2017 1:02 PM EDT 5 mg Given 07/18/2017 3:47 AM EDT 5 mg haloperidol lactate (HALDOL) injection 5 mg 5 mg, Intravenous, EVERY 6 HOURS, First dose (after last modification) on [place] 07/18/17 at 1930, Until Discontinued, Routine Given [...] 1130, Until Discontinued, Please hold and notify product management internship for SBP under 100 and/or HR under [...] restart at 50% of previous rate. Call warehouse order selector if goal not achieved at maximum rate., [...] restart at 50% of previous rate. Call warehouse order selector if goal not achieved at maximum rate., [...] Embolism documented in this encounter Care Teams Results Engineer Relationship Specialty Start Date End Date Jovon Sifuentes MD [address] [place] [address] PCP - General 09/30/10 09/10/21 documented as of this encounter
--- OUTSIDE RECORDS SUMMARY | 2024-09-01 14:11 | XMS_ITS | Encounter Summary ---
[place] [address] Care Team Providers Care Oil Transport Driver Name Role Phone Jovon Sifuentes MD Primary Care Provider Reason for Referral * Diagnostic Test (Routine) - Closed Specialty Diagnoses / Procedures Referred By Huma valladares Referred To Contact Radiology Diagnoses Cancer of base of tongue Procedures CT Neck Soft Tissue w Contrast (Generic) Sriram Contreras MD [facility] [place] [address] [facility] [place] [address] Referral ID Status Reason Start Date Expiration Date V isits Requested Visits Authorized [id number] Closed Specialty Service Requested 06/17/2017 06/17/2018 1 [...] Expiration Date Visits Re quested Visits Authorized [id number] 1 1 Encounter Details Date Type Department Care Team (Latest Contact Info) Description 07/13/2017 9:15 AM EDT - 07/13/2017 11:59 PM EDT Hospital Encounter Radiology at [facility] [place] [address] Cancer of base of tongue Discharge Disposition: [...] 10:20 AM EST Office [place] [address] Sriram Contreras MD [facility] [place] [address] 10/31/2024 1:30 PM EST Office Visit Hematology/Oncology at [address] [phone] Dmitry Bhatti MD [facility] [address] [place] [address] Ellen Mcrae APRN [facility] [place] [address] 10/31/2024 2:00 PM EST Infusion Hematology Oncology at [address] [phone] documented as of this encounter Procedures Procedure [...] mLs documented in this encounter Care Teams Oil Transport Driver Relationship Specialty Start Date End Date Jovon Sifuentes MD [address] [place] [address] PCP - General 09/30/10 09/10/21 documented as of this encounter
--- OUTSIDE RECORDS SUMMARY | 2024-09-01 14:11 | XMS_ITS | Encounter Summary ---
[place] [address] Care Team Providers Care Gaming Investigator Name Role Phone Jovon Sifuentes MD Primary Care Provider [phone] Reason for Visit * Auth/Cert Specialty Diagnoses [...] Expiration Date Visits Re quested Visits Authorized [id number] 1 1 Encounter Details Date Type Department Care Team (Late st Contact Info) Description 07/16/2017 12:05 PM EDT Anesthesia Event [place] [address] Brock Tang MD [facility] [place] [address] Biju Blue MD [facility] [place] [address] Anesthesia Record Procedure Summary Procedure Name Responsible [...] 0836; metacarpal vein (top of hand), right; [id number] catheter system; 20 gauge, 1 in length; [...] Ea sy (1); ETT Type: Cuffed, Nasal, ASNTIAGO; ETT Size: 7.5 mm; Mac Blade: 4; Indirect: Video; Notes: Asleep, Pre-O2, Stylette; Attempts: 2; Laryngoscopy Grade: 2; ETT Placement Verified By: Auscultation, Capnometry, Visual; Inserted by: Karla Chavarria CRNA; Removal Date: 07/17/17; Removal Time: 1034 07/13/17 0815 by Karla Chavarria, LISSETTE 07/17/17 1034 by Miguelina Puente RT Arterial Line 07/13/17; 0842; radi al artery, right; 20 gauge; Karla Chavarria CRNA; Sterile Prep, Sterile Gloves; catheter not patent, catheter intact; 07/18/17; 201407/13/17 0842 by Karla Chavarria CRNA 07/18/172014 by Arely Iqbal, RN (RETIRED) Peripheral IV Line - Single Lumen 07/13/17; 0850; median vein (underside of arm), left; sobg-vqs-[id number] catheter system; 18 gauge; Beau; removed inadvertently, catheter/device intact; 07/20/17; 0200 07/13/17 0850 by Karla Chavarria, FULLER BRUSH WORKER 07/20/17 0200 by Shannon Toribio RN NG/OG [...] Tang MD - 07/16/2017 12:47 PM EDT [place] Department of Anesthesiology Post-procedure Note Patient: Jose Bee Procedure Summary Date Anesthesia Start Anesthesia Stop Room / Location 07/16/17 1205 1235 [facility] OR 04 / [facility] MAIN OR Procedure Diagnosis Surgeon Responsible Provider LARYNGOSCOPY, WITH MICROSCOPE (WRVU 2.57) (N/A Throat) (Intubation) Sriram Contreras MD Pouliot, Ryan C, MD All Anesthesia Providers: Anesthesiologist: Brock Tang MD FULLER BRUSH WORKER: Karla Chavarria CRNA Last (1hr) Vitals: BP [...] March 2017: noted in ED in [facility]. Previously noted to be paroxysmal. [...] Right 1996 [place] ??? KNEE ARTHROSCOPY [facility] ??? PRO BIOPSY OROPHARYNX N/A 05/24/2017 BIOPSY, OROPHARYNX (WRVU 1.44) performed by Zafar Madera MD at [facility] MAIN OR ??? PRO LARYNGOSCOPY, DIRCT, OP SCOPE, BIOPSY N/A 05/24/2017 LARYNGOSCOPY, MICROSCOPE, WITH BIOPSY (WRVU 3.55) performed by Zafar Madera MD at [facility] MAIN OR ??? QUADRACEPS TENDON REPAIR Right 04/2016 [facility] ??? TONSILLECTOMY Social History Substance Use [...] discussed with spouse. Plan discussed with resident, FULLER BRUSH WORKER and attending. PAT Staff Note documented in this encounter Plan of Treatment Upcoming Encounters Date Type Department Care Team (Late st Contact Info) Description 09/18/2024 10:20 AM EST Office [place] [address] Sriram Contreras MD [facility] [place] [address] 10/31/2024 1:30 PM EST Office Visit Hematology/Oncology at [address] [phone] Dmitry Bhatti MD [facility] [place] [address] Ellen Mcrae APRN [facility] [place] [address] 10/31/2024 2:00 PM EST Infusion Hematology Oncology at [address] [phone] documented as of this encounter [...] mcg documented in this encounter Care Teams Gaming Investigator Relationship Specialty Start Date End Date Jovon Sifuentes MD [address] [place] [address] PCP - General 09/30/10 09/10/21 documented as of this encounter
--- OUTSIDE RECORDS SUMMARY | 2024-09-01 14:11 | XMS_ITS | Encounter Summary ---
Author Organization [facility] [place] [address] Care Team Providers Care Infrastructure Manager Name Role Phone Jovon Sifuentes MD Primary Care Provider [phone] Reason for Visit * Auth/Cert Specialty Diagnoses [...] Expiration Date Visits Re quested Visits Authorized [id number] 1 1 Encounter Details Date Type Department Care Team (Late st Contact Info) Description 07/16/2017 10:58 AM EDT - 07/16/2017 1:17 PM EDT [place] [phone] Sriram Contreras MD [facility] [place] [place] [address] LARYNGOSCOPY, WITH MICROSCOPE (WRVU 2.57) Social History [...] staging exam TECHNIQUE: Following IV injection of 38-fxsgmh-1-deoxyglucose (FDG) a standard uptake of approximately 60 [...] Thank you for referring this patient to [facility]. I have personally reviewed the [...] -You can reach the ENT clinic at [phone] for appointment questions. -The ENT triage nurse is available at [phone] -For urgent issues during evenings and weekends the ENT resident acquisitions assistant can be reached through [facility] panel flow machine operator at [phone] Follow Up: You will need to follow [...] Geovanna Deleon MD Hematology and Oncology at [place] [phone] General Instructions None __ Primary Care Doctor: Jovon Sifuentes MD [phone] Signed: Celso Mejía MD 07/29/2017 documented in [...] -You can reach the ENT clinic at [phone] for appointment questions. -The ENT triage nurse is available at [phone] -For urgent issues during evenings and weekends the ENT resident acquisitions assistant can be reached through [facility] panel flow machine operator at [phone] Follow Up: You will need to follow [...] Geovanna Deleon MD Hematology and Oncology at [place] [phone] documented in this encounter Medications at Time [...] found Jose Bee discharged to [facility] by private car with Spouse. All belongings sent with patient. DONNA removed, incision healing well, no significant drainage, no dehiscence, no significant erythema, skin free from pressure ulcers. Discharge instructions given to . Report called to Vidhi at [facility] @ 1340. * Alexus Soler RN - 07/29/2017 11:38 AM EDT Patient accepts bed at [facility]. Spoke with Patient and in regards to transportation. will provide transportation to [facility]. Adrienne Soler RN Care Management * Lexy Scott - 07/29/2017 10:57 AM EDT Office of Care Management/Receptionist Doctor'S Office Patient Name: Jose Bee : 1950 Patient has been offered a Custodial Facility bed at [facility]. The patient will be transported by private transportation. No MD to MD report necessary Please call Nursing Report to , ask for Vidhi. Info to accompany patient: Narcotic Prescriptions Copies of Medication Administration Records and IV sheets for past 10 days. Plan: Receptionist Doctor'S Office will be available to the patient and Cutting Machine Tender-RN and/or Social Workerfor further assistance. Patient will be discharged to: [facility] [address] [place] [address] Melany Rodrigues * Luana Henry RN - 07/29/2017 7:00 AM EDT Patient arrived via bed to rm 514, oob sitting in chair. Aox4, calling . Denies pain. Plan for discharge today pending bed. 1 assist to bathroom. Voids with out difficulty. [place] to floor and call srinivasan system. Would like to take a shower and have his CPAP cleaned. Will report to oncoming RN/CONCEPCION. * Kayley Chris RCP - 07/29/2017 4:40 AM EDT Patient was compliant with home CPAP usage tonight. * Anay Diallo RN - 07/28/2017 3:40 PM EDT Cutting Machine Tender Follow Up Note Patient plan of care discussed in multidisciplinary rounds. Met with patient and to assess continuing care and discharge needs. Continues to require hospitalization for Head and neck cancer. Discharge plan to snf when medically ready. Cutting Machine Tender to follow with team and family to assist with discharge needs when patient ready for discharge. Anay Diallo RN Case Management for [facility] pgr [phone] * Celso Mejía MD - [...] Mejía MD, PGY1 07/28/17 7:05 AM Pager: [phone] * Anay Diallo RN - 07/27/2017 2:44 PM EDT Based on discussions with the multi-disciplinary healthcare team, the patient would benefit from skilled level of care at discharge. ?? I have met with the patient/petroleum products sales representative to discuss discharge planning needs. I have provided the [facility], Office of Care Management letter from the Brush Holder Assembler pertaining to rehab referrals. I have also provided a letter describing our affiliations within the [facility] and educated them about their right to choose where referrals are placed. ?? I reviewed the different levels of rehab including SNF, swing, acute and LTAC with the patient/petroleum products sales representative. ?? The patient/petroleum products sales representative has been provided a list of facilities within their preferred geographic area. ?? I have requested that the patient/petroleum products sales representative provide at least three choices for referral. ?? The patient/petroleum products sales representative have requested referrals to: 1. [facility] ?? PHONE: [phone] FAX: [phone].. 2. [facility] [address] [place] [address] ?? 3. [facility] ([facility]) [address] [place] [address] ? Expected date of discharge: TBD Note routed to Receptionist Doctor'S Office who will communicate referrals to facilities and [...] Mejía MD, PGY1 07/27/17 7:01 AM Pager: [phone] * Collette Schultz - 07/26/2017 8:21 PM EDT Traffic Enumerator Encounter Note Patient Name: Jose Bee : [id number] MR#: [id number] Admit Date: 07/13/2017 6:04 AM Hospital Day 13 days Narrative: Attempted return visit - pt sleeping. Time in Direct Care: 0 min. Collette Schultz 07/26/2017 * Collette Schultz - 07/26/2017 3:00 PM EDT Traffic Enumerator Encounter Note Patient Name: Jose Bee : [id number] MR#: [id number] Admit Date: 07/13/2017 6:04 AM Hospital Day 13 days Narrative: Check Viewer visit per Consult Order Assessment: Pt spoke [...] Diallo RN - 07/26/2017 2:30 PM EDT Cutting Machine Tender Follow Up Note Patient plan of care discussed in multidisciplinary rounds. Met with patient to assess continuing care and discharge needs. Continues to require hospitalization for Head and neck cancer. Discharge plan uncertain at this time. Cutting Machine Tender to follow with team and family to assist with discharge needs when patient ready for discharge. Anay Diallo RN Case Management for [facility] pgr [phone] * Briana Goel RN - 07/26/2017 2:29 PM EDT [facility] Interventional Radiology ? Interventional Radiology Nursing and/or [...] patient's provider, ENT Service Dr. Jackie Mejía #[phone] , regarding above. Paged, callback # provided [...] 2017: noted in ED in [facility]. Previously noted to be paroxysmal. No awareness. CHADS2-VASc=1 (age). Started on apixaban for PE Acute respiratory failure Overview: Worsening oxygenation. KORI on CPAP Adult BMI 30+ Estimated body mass index is 38.74 kg/(m^2) as calculated from the following: Height as of this encounter: 191.8 cm (6' 3.51). Weight as of this encounter: 142.5 kg (314 lb 2.5 oz). Admit Wt: 133.36 kg [place] body weight: 90.4 kg Type of access: [...] vitamins and minerals. Assessment: Estimated Nutrition Needs: 9055-5409 calories (20-25 kcal/kg IBW) 135-160 grams protein (1.5-2.0 g/kg IBW) Patient is out of the ICU and out on the floor. Tube feedings need adjustment as pt is no longer onpropofol. Appears tube feedings are still medically indicated given pt is s/p swallow eval and AQUARIUM SPECIALIST recommends continuation of dobhoff TF for now. [...] Mejía MD, PGY1 07/26/17 9:01 AM Pager: [phone] * Calista Peralta RT - 07/26/2017 12:27 [...] 7.44 7.41 7.42 PO2ART 67* 60* 78* SMJ5SOR 39 37 39 BEART 1.2 -2.0 0.3 [...] 7.44 7.41 7.42 PO2ART 67* 60* 78* ZOD1JDN 39 37 39 BEART 1.2 -2.0 0.3 [...] MD, FAAP Pediatric Otolaryngology [facility] ([facility]) [facility] * Beena Saini RCP - [...] 07/23/2017 3:50 PM EDT Office of Care Management(OCM)/Cutting Machine Tender(CM) Service: ENT Pt remains intubated at this [...] get appropriate choices after recs are made. Cutting Machine Tender Roc Valdez RN, BSN Pager #[phone] * Sony Oliva MD - 07/23/2017 11:31 [...] 07/23/2017 No results found for: PHART, PO2ART, RPI0DUC ASSESSMENT, MANAGEMENT, and DECISION MAKING: potential for [...] LEAST ONE OF THESE DX to USE 06870 ARDS Stupor Hypoxemic Resp Failure (Fi02>50%) Delirium [...] LEAST ONE OF THESE DX to USE 28376 ARDS Stupor Hypoxemic Resp Failure (Fi02>50%) Delirium [...] to reach the patient's provider, Red 1 [phone], regarding above. Monitor weight. Jose Bee is [...] LEAST ONE OF THESE DX to USE 33055 ARDS Stupor Hypoxemic Resp Failure (Fi02>50%) Delirium [...] trachea midline; with neck incision c/d/i with cyrstal with no hematoma/seroma. Chest: Ventilator breath equal [...] PGY2 07/20/17 7:21 AM * Kaiden Gorman, [facility] - 07/20/2017 4:35 AM EDT AMV [...] LEAST ONE OF THESE DX to USE 64764 ARDS Stupor Hypoxemic Resp Failure (Fi02>50%) Delirium [...] Bee Age/Sex: 66 y.o. male Attending: Sriram Cnotreras MD Hospital Day: 7 3 Days Post-Op [...] plan. Lakeshia Mckeon MD * Jeannie Jewell, [facility] - 07/17/2017 7:24 PM EDT 07/17/17 [...] Jr, MD, PGY2 07/17/17 8:21 PM Pager: [phone] (For daytime 6AM - 6PM) Please contact on-call night ENT internet marketing analyst for issues between 6PM - 6AM * [...] the need arise fora surgical airway. - [facility] vent protocol - HOB 30 [...] kg (294 lb). Admit Weight: 133.36 kg [place] Body Weight: 90.3 kg I/O last 1 [...] service. Nutrition to follow. * Lillian Pardo, AQUARIUM SPECIALIST - 07/16/2017 1:48 PM EDT Speech-Language Pathology Initial Consult ?? Order received and acknowledged. Records reviewed and pt and RN contacted. Pt remains intubated at this time. Assessment deferred at this time. Please re- consult after pt successfully extubated. ?? Lillian Pardo MA CCC-AQUARIUM SPECIALIST Inpatient Rehabilitation Medicine pager:# [phone] * Salazar Bhagat MD - 07/16/2017 11:57 [...] need arise for a surgical airway. - [facility] vent protocol - HOB 30 [...] Martino MD, PGY1 07/16/17 9:12 AM Pager: [phone] (For daytime 6AM - 6PM) Please contact on-call night ENT internet marketing analyst for issues between 6PM - 6AM * Supa Sharif, [facility] - 07/15/2017 8:15 PM EDT AMV [...] need arise for a surgical airway. - [facility] vent protocol - Dexamethasone x3 [...] Martino MD, PGY1 07/15/17 7:06 AM Pager: [phone] (For daytime 6AM - 6PM) Please contact on-call night ENT internet marketing analyst for issues between 6PM - 6AM * Supa Sharif, [facility] - 07/14/2017 9:40 PM EDT AMV [...] ?? Pulm: nasally intubated, difficult airway - [facility] vent protocol - Dexamethasone x3 [...] MD 07/14/2017 6:47 PM * Adam Montana, [facility] - 07/14/2017 2:03 PM EDT AMV [...] Martino MD, PGY1 07/14/17 9:38 AM Pager: [phone] (For daytime 6AM - 6PM) Please contact on-call night ENT internet marketing analyst for issues between 6PM - 6AM * [...] of this encounter: 133.4 kg (294 lb). [place] Body Weight: 90.3 kg I/O last 1 [...] service. Nutrition to follow. * Cecilia Doll, PAPER REELER - 07/14/2017 5:36 AM EDT Mechanical Ventilation Note Vent Settings: Pressure Support 5 PEEP 5 FIO2 0.4 ETT: Left Nare placed at: 28 cm at the nare Changes made this shift: transitioned to pressure support 5 PEEP 5 FIO2 0.4 SBT Protocol: Yes Pass SBT: Yes AMV Protocol: Yes Assessment: ETT secured via suture. Of note, the commercial drone pilot balloon line is wrapped up in [...] Date ??? ACHILLES TENDON SURGERY Right 1996 [facility] ??? KNEE ARTHROSCOPY christelle. [facility] ??? PRO BIOPSY OROPHARYNX N/A 05/24/2017 BIOPSY, OROPHARYNX (WRVU 1.44) performed by Zafar Madera MD at [facility] MAIN OR ??? PRO LARYNGOSCOPY, DIRCT, OP SCOPE, BIOPSY N/A 05/24/2017 LARYNGOSCOPY, MICROSCOPE, WITH BIOPSY (WRVU 3.55) performed by Zafar Madera MD at [facility] MAIN OR ??? 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 He is to Briana for 40 yrs. 4 children - All live in different states - [place] Enjoys raising Beef Cattle and doing Civil War and Living History and shoot Black powder/Antique firearms. He enjoys builiding Firearms/Blacksmithing - [place]coal, [place], etc. Review of Systems: Not obtained due [...] - currently stable Pulm: nasally intubated - [facility] vent protocol GI: DHT - [...] this case performed under IRB Protocol Study [id number] (Improving throat cancer surgical outcomes through intra-operative [...] to the planned procedure. Hand Hygiene: The special police did perform hand hygiene prior to arterial [...] hypoxic respiratory failure Location of Procedure: ICU [facility]. Risks and Benefits: The risks and benefits [...] RECOMMENDATIONS: ?? Continue dysphagia soft diet and [place]-thick liquids. ?? Upright to feed. ?? Small bites/sips. ?? Medications crushed in applesauce. Sriram Thompson MS [facility]-AQUARIUM SPECIALIST Speech-Language Pathologist Rehabilitation Medicine Pager - [phone] Problem: Acute Rehab Services Goal & Intervention [...] Anticipated Discharge Disposition: inpatient rehabilitation facility Pager: [phone] OTONIEL JOSHUA OT 07/28/2017 Occupational Therapy Rehabilitation [...] * Plan of Care - Sriram Thompson, AQUARIUM SPECIALIST - 07/28/2017 2:18 PM EDT Problem: Patient [...] documentation. RECOMMENDATIONS: ?? Dysphagia soft diet and [place]-thick liquids. ?? Upright to feed. ?? Small bites / sips. ?? Crush medications in applesauce when possible. Sriram Thompson, MS [facility]-AQUARIUM SPECIALIST Speech-Language Pathologist Rehabilitation Medicine Pager - [phone] Problem: Acute Rehab Services Goal & Intervention [...] Anticipated Discharge Disposition: inpatient rehabilitation facility Pager: [phone] CRISTIAN NELSON, PT 07/27/2017 Physical Therapy Rehabilitation [...] sit/sit to supine -- Bed Mobility Goal, [place] Level independent -- Bed Mobility Goal, Outcome Achieved -- goal ongoing Goal: Gait Training Goal Stand Alone Therapy Goal Outcome: Ongoing (Interventions Implemented as Appropriate) 07/26/17 1329 07/27/17 1230 Gait Training Goal Gait Training Goal, Date Established 07/26/17 -- Gait Training Goal, Time to Achieve 30 days -- Gait Training Goal, [place] Level supervision required -- Gait Training Goal, [...] days -- Transfer Training Goal, Activity Type mwv-wg-ibzad/alwyl-hs-mor;cbx-li-qjwtj/npdrr-lf-xpa -- Transfer Train Goal, [place] Level supervision required -- Transfer Training Goal, Assist Device walker, rolling -- Transfer Training Goal, Outcome -- goal ongoing * Plan of Care - Sriram Thompson, AQUARIUM SPECIALIST - 07/27/2017 10:59 AM EDT Problem: Patient [...] in applesauce. Sriram Thompson MS [facility]-AQUARIUM SPECIALIST Speech-Language Pathologist Rehabilitation Medicine Pager - [phone] Problem: Acute Rehab Services Goal & Intervention [...] PLAN MOVING FORWARD: -PEG tube. -IV abx -AQUARIUM SPECIALIST consult. -hep gtt. INDIVIDUALIZED FALL PREVENTION INTERVENTIONS: [...] Pt appeared anxious and frustrated this morning. Check Viewer consulted and talked with patient today. During a transfer to the [facility] it was determinedthat tube feeding was leaking [...] Anticipated Discharge Disposition: inpatient rehabilitation facility Pager: [phone] OTONIEL JOSHUA OT 07/26/2017 Occupational Therapy Rehabilitation [...] Anticipated Discharge Disposition: inpatient rehabilitation facility Pager: [phone] CRISTIAN NELSON, DANY 07/26/2017 Physical Therapy Rehabilitation [...] to sit/sit to supine Bed Mobility Goal, [place] Level independent Goal: Gait Training Goal Stand Alone Therapy Goal Outcome: Ongoing (Interventions Implemented as Appropriate) 07/26/17 1329 Gait Training Goal Gait Training Goal, Date Established 07/26/17 Gait Training Goal, Time to Achieve 30 days Gait Training Goal, [place] Level supervision required Gait Training Goal, Assist [...] 30 days Transfer Training Goal, Activity Type zvt-jo-ugdep/cqrbs-hg-lcn;men-su-ucicf/dxsav-jw-iag Transfer Train Goal, [place] Level supervision required Transfer Training Goal, Assist [...] Afib (CHADS-VASc of 1) who presented to [facility] for radical neck dissection on 07/13/17. We [...] Date ??? ACHILLES TENDON SURGERY Right 1996 [facility] ??? KNEE ARTHROSCOPY christelle. [facility] ??? PRO BIOPSY OROPHARYNX N/A 05/24/2017 BIOPSY, OROPHARYNX (WRVU 1.44) performed by Zafar Madera MD at [facility] OR ??? PRO LARYNGOSCOPY, DIRCT, OP SCOPE, BIOPSY N/A 05/24/2017 LARYNGOSCOPY, MICROSCOPE, WITH BIOPSY (WRVU 3.55) performed by Zafar Madera MD at [facility] OR ??? PRO LARYNGOSCOPY, DIRECT, DX, OP MICROSCOP N/A 07/16/2017 LARYNGOSCOPY, WITH MICROSCOPE (WRVU 2.57) performed by Sriram Contreras MD at [facility] OR ??? 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 He is to Briana for 40 yrs. 4 children - All live in different states - One Kathleen Enjoys raising Beef Cattle and doing Civil War and Living History and shoot Black powder/Antique firearms. He enjoys builiding Firearms/Blacksmithing - Charcoal, [place], etc. PHYSICAL EXAMINATION Most Recent Vitals: 07/26/17 [...] and thrombosis clinic Felice Harvey MD Pager [phone] Heme-Onc Fellow ?? HEMATOLOGY STAFF ADDENDUM I [...] Deanna Menjivar MD Hematology Staff physician, Pager: [phone] 07/26/17 * Plan of Care - Sriram Thompson, AQUARIUM SPECIALIST - 07/26/2017 9:33 AM EDT Problem: Patient [...] all times. Sriram Thompson MS [facility]-AQUARIUM SPECIALIST Speech-Language Pathologist Rehabilitation Medicine Pager - [phone] Problem: Acute Rehab Services Goal & Intervention [...] Bee was transferred from the ICU to [facility] at approximately 1430 on 07/25/17. [...] per order. PLAN MOVING FORWARD: Transfer to [facility] INDIVIDUALIZED FALL PREVENTION INTERVENTIONS: Patient-specific fall [...] am. PLAN MOVING FORWARD: Extubate, transfer to [facility] when able INDIVIDUALIZED FALL PREVENTION INTERVENTIONS: [...] Overview Goal: Plan of Care Review 07/23/17 6408 Coping/Psychosocial Plan Of Care Reviewed With patient [...] Outcome: Ongoing (Interventions Implemented as Appropriate) 07/15/17 1194 Skin Integrity Impairment, Risk/Actual Skin Integrity Impairment, [...] MOVING FORWARD: Extubate this am, transfer to [facility] when able INDIVIDUALIZED FALL PREVENTION INTERVENTIONS: [...] RN or CONCEPCION Surveillance [continuous indirect monitoring]: [place] ICU monitor Patient-specific fall prevention interventions for [...] Contreras MD - 07/16/2017 12:27 PM EDT [facility] Operative Note Patient Name: Jose Bee : [id number] MR#: [id number] Case Date: 07/16/2017 Surgeon: Surgeon(s) and Role: [...] monitoring required during toileting and ADLs]: RN, SECTION REPAIRER and RT Surveillance [continuous indirect monitoring]: Monitor [...] Contreras MD - 07/15/2017 4:58 PM EDT [facility] Operative Note Patient Name: Jose Bee : [id number] MR#: [id number] Case Date: 07/13/2017 Surgeon: Surgeon(s) and Role: * Sriram Contreras MD - Primary * Selvin Kaye MD - Resident-Ediscovery Project Manager * Hilton Cehney PA - Physician Curatorial Assistant Preoperative diagnosis: Right tongue base cancer Postoperative [...] completed, we then registered the patient using Embuealth electromagnetic registration to the intraoperative imaging that [...] Vicryl suture. Once this was completed, two 15-Eritrean Robin drains were placed in the neck, [...] Bee would be surrogate decision maker per [place] surrogate decision making law. Any patient receiving care at [facility] must abide by [place] law. The hierarchy for surrogate decision making [...] (i) The agent with financial power of patent attorney or a conservator appointed in accordance [...] Insurance: MEDICARE A & B Secondary Insurance: [employer] [facility] Prescription Coverage: yes. Preferred Pharmacy: [facility] in [place], [place]. Other: none. Primary Care Provider: Jovon Sifuentes MD [phone] Patient/Caregiver Goals of Treatment: plan being determined at this time. Likely home health at [place]. Potential Needs for Transition of Care: Rehab/SNF: tbd. Home Health: tbd. DME: none previously required. Dialysis: N/A Community Resources: none. Transportation: spouse will provide. Other: none. Anticipated Barriers to Discharge/Special Considerations: no barriers identified at this time. Plan: a member of the Care Management team will continue to monitor progress, follow for continuityof care and assist with transition of care planning. Cutting Machine Tender Roc Valdez RN, BSN Pager #[phone] documented in this encounter Plan of Treatment Upcoming Encounters Date Type Department Care Team (Late st Contact Info) Description 09/18/2024 10:20 AM EST Office [place] [phone] Sriram Contreras MD [facility] [place] [address] 10/31/2024 1:30 PM EST Office Visit Hematology/Oncology at [address] [phone] Dmitry Bhatti MD [facility] [place] [address] Ellen Mcrae APRN [facility] [place] [address] 10/31/2024 2:00 PM EST Infusion Hematology Oncology at [address] [phone] documented as of this encounter Procedures Procedure Name Priority Date/Time Associated Diagnosis Comments CARDIOPULMONARY TECHNICIAN AND EEG TECH SCAN 07/30/2017 12:00 AM EDT HEMOGRAM Routine [...] Routine 07/17/2017 10:34 AM EDT CARDIAC ENZYMES ([facility]) STAT 07/17/2017 5:42 AM EDT HEMOGRAM Routine 07/17/2017 12:30 AM EDT DIFFERENTIAL, AUTOMATED Routine 07/17/2017 12:30 AM EDT CARDIAC ENZYMES ([facility]) STAT 07/17/2017 12:30 AM EDT CBC (WITH [...] EDT TYPE AND SCREEN, SDP (FUTURE SURGERY, [facility] SAME DAY PROGRAM ONLY) STAT 07/13/2017 6:27 AM EDT ABO/RH TYPING STAT 07/13/2017 6:27 AM EDT ANTIBODY SCREEN STAT 07/13/2017 6:27 AM EDT documented in this encounter Results * SCAN DOC: CARDIOPULMONARY TECHNICIAN AND EEG TECH (07/30/2017 12:00 AM EDT) Anatomical Region Laterality Modality Other Narrative 07/30/2017 12:00 AM EDT Ordered by an unspecified provider. Scanning Provider MEDIA MGR SCAN EXT O RDR/RSLT * (ABNORMAL) Differential, Automated (07/29/2017 3:41 AM EDT) Neutrophil % 59.9 % [facility] Neutrophil Absolute 4.48 1.70 - 6.10 x10(3)/mc L [facility] Lymph % 26.0 % [facility] Lymphocytes Abs 2.0 0.9 - 3.2 x10(3)/mc L [facility] Monocyte % 10.0 % [facility] Monocyte Abs 0.8 0.3 - 0.9 x10(3)/mc L [facility] Eos % 2.1 % [facility] Eosinophils Abs 0.2 0.0 - 0.4 x10(3)/mc L [facility] Basophil % 0.7 % [facility] Baso Absolute 0.0 0.0 - 0.1 x10(3)/mc L [facility] Immature Gran % 1.30 % [facility] Comment: Immature granulocytes(IG's)percentage and absolute count will include metamyelocytes, myelocytes, and promyelocytes. Blood smears from CBCs yielding IG's will be scanned manually for concordance. If this scan disagrees with the automated IG or if promyelocytes are noted, a manual differential will be performed. Immature Gran Absolute 0.10(H) 0.00 - 0.04 x10(3)/ L [facility] Blood specimen (specimen) 07/29/2017 3:41 AM EDT 07/29/2017 3:58 AM EDT Narrative Resulting Agency Comment Spec In Lab Sriram Contreras MD HEMATOLOGY ORDERAB LES [facility] [place] [address] * (ABNORMAL) Hemogram (07/29/2017 3:41 AM EDT) White Blood Cell 7.5 4.0 - 9.5 x10(3)/ L [facility] Red Blood Cell 4.14(L) 4.58 - 5.54 x10(6)/ L [facility] Hemoglobin 12.7(L) 13.7 - 16.5 gm/dL [facility] Hematocrit 38.1(L) 40.5 - 48.5 % [facility] Mean Cell Volume 92.0 82.9 - 93.1 fL [facility] Mean Cell Hemoglobin 30.7 27.5 - 32.1 pg [facility] Mean Cell Hemoglobin Concentration 33.3 32.0 - 35.7 gm/dL [facility] Platelet 281 145 - 357 x10(3)/ L [facility] RDW Standard Deviation 46.4(H) 36.0 - 45.0 fL [facility] RDW coefficient of variation 13.9(H) 11.4 - 13.8 % [facility] Mean Platelet Volume 9.9 7.6 - 12.9 fL [facility] NRBC% auto 0.0 % [facility] NRBC Absolute 0.000 0.000 - 0.000 x10(3)/mc L [facility] Blood specimen (specimen) 07/29/2017 3:41 AM EDT 07/29/2017 3:58 AM EDT Narrative Resulting Agency Comment Spec In Lab Sriram Contreras MD HEMATOLOGY ORDERAB LES [facility] [place] [address] * Basic Metabolic Panel (non-fasting) (07/29/2017 3:41 AM EDT) Glucose 95 65 - 199 mg/dL [facility] Comment:Diabetes: >=200 mg/d L plus symptoms Blood Urea Nitrogen 16 10 - 20 mg/dL [facility] Creatinine 0.95 0.80 - 1.50 mg/dL [facility] Comment: Please note that the pediatric reference intervals supplied above were not validated at [facility]. Results from pediatric patients should be interpreted [...] 107 mmol/L [facility] Carbon Dioxide 24 22 - 31 mmol/L [facility] Anion Gap 13 5 - 15 mmol/L [facility] Calcium 8.9 8.5 - 10.5 mg/dL [facility] Est Glomerular Filtration Rate >60 [...] the following links into your internet browser. [email or web address] Blood specimen (specimen) 07/29/2017 3:41 AM EDT 07/29/2017 3:58 AM EDT Narrative Resulting Agency Comment Spec In Lab Sriram Contreras MD CHEMISTRY ORDERABL ES Performing Organization Address [facility] Phone Number [facility] [place] [address] * POCT Glucose (07/28/2017 11:53 AM EDT) Glucose, POC 107 65 - 199 mg/dL [facility] Comment: Supplemental ranges: <140 mg/dL before meals <180 mg/dL all other times of the day Blood specimen (specimen) 07/28/2017 11:53 AM EDT 07/28/2017 11:53 AM EDT Sriram Contreras MD POINT OF CARE TEST ORDERABLES Performing Organization Address [facility] de Phone Number [facility] [place] [address] * POCT Glucose (07/28/2017 7:52 AM EDT) Glucose, POC 97 65 - 199 mg/dL [facility] Comment: Supplemental ranges: <140 mg/dL before meals <180 mg/dL all other times of the day Blood specimen (specimen) 07/28/2017 7:52 AM EDT 07/28/2017 7:52 AM EDT Sriram Contreras MD POINT OF CARE TEST ORDERABLES Performing Organization Address [facility]/ZIP Co de Phone Number [facility] [place] [address] * POCT Glucose (07/28/2017 4:27 AM EDT) Glucose, POC 98 65 - 199 mg/dL [facility] Comment: Supplemental ranges: <140 mg/dL before meals <180 mg/dL all other times of the day Blood specimen (specimen) 07/28/2017 4:27 AM EDT 07/28/2017 4:27 AM EDT Sriram Contreras MD POINT OF CARE TEST ORDERABLES Performing Organization Address [facility] Co de Phone Number [facility] [place] [address] * Phosphorus (07/28/2017 3:47 AM EDT) Phosphorus 3.7 2.5 - 4.5 mg/dL [facility] Blood specimen (specimen) 07/28/2017 3:47 AM EDT 07/28/2017 6:16 AM EDT Narrative Resulting Agency Comment Spec In Lab Sriram Contreras MD CHEMISTRY ORDERABL ES Performing Organization Address [facility] de Phone Number [facility] [place] [address] * Magnesium (07/28/2017 3:47 AM EDT) Magnesium 0.86 0.69 - 1.07 mmol/L [facility] Blood specimen (specimen) 07/28/2017 3:47 AM EDT 07/28/2017 6:16 AM EDT Narrative Resulting Agency Comment Spec In Lab Sriram Contreras MD CHEMISTRY ORDERABL ES Performing Organization Address [facility] Co de Phone Number [facility] [place] [address] * (ABNORMAL) Differential, Automated (07/28/2017 3:47 AM EDT) Neutrophil % 62.2 % [facility] Neutrophil Absolute 4.94 1.70 - 6.10 x10(3)/ L [facility] Lymph % 22.1 % [facility] Lymphocytes Abs 1.8 0.9 - 3.2 x10(3)/[facility] Monocyte % 10.6 % [facility] Monocyte Abs 0.8 0.3 - 0.9 x10(3)/[facility] Eos % 2.1 % [facility] Eosinophils Abs 0.2 0.0 - 0.4 x10(3)/[facility] Basophil % 1.1 % [facility] Baso Absolute 0.1 0.0 - 0.1 x10(3)/[facility] Immature Gran % 1.90 % [facility] Comment: Immature granulocytes(IG's)percentage and absolute count will include metamyelocytes, myelocytes, and promyelocytes. Blood smears from CBCs yielding IG's will be scanned manually for concordance. If this scan disagrees with the automated IG or if promyelocytes are noted, a manual differential will be performed. Immature Gran Absolute 0.15(H) 0.00 - 0.04 x10(3)/ L [facility] Blood specimen (specimen) 07/28/2017 3:47 AM EDT 07/28/2017 3:58 AM EDT Narrative Resulting Agency Comment Spec In Lab Sriram Contreras MD HEMATOLOGY ORDERAB LES [facility] [place] [address] * (ABNORMAL) Hemogram (07/28/2017 3:47 AM EDT) White Blood Cell 8.0 4.0 - 9.5 x10(3)/ L [facility] Red Blood Cell 4.43(L) 4.58 - 5.54 x10(6)/mc L [facility] Hemoglobin 13.4(L) 13.7 - 16.5 gm/dL [facility] Hematocrit 40.3(L) 40.5 - 48.5 % [facility] Mean Cell Volume 91.0 82.9 - 93.1 fL [facility] Mean Cell Hemoglobin 30.2 27.5 - 32.1 pg [facility] Mean Cell Hemoglobin Concentration 33.3 32.0 - 35.7 gm/dL [facility] Platelet 271 145 - 357 x10(3)/mc L [facility] RDW Standard Deviation 45.5(H) 36.0 - 45.0 [facility] RDW coefficient of variation 13.8 11.4 - 13.8 % [facility] Mean Platelet Volume 9.9 7.6 - 12.9 [facility] NRBC% auto 0.0 % [facility] NRBC Absolute 0.000 0.000 - 0.000 x10(3)/mc L [facility] Blood specimen (specimen) 07/28/2017 3:47 AM EDT 07/28/2017 3:58 AM EDT Narrative Resulting Agency Comment Spec In Lab Sriram Contreras MD HEMATOLOGY ORDERAB LES Performing Organization Address City/State/[facility] Co de Phone Number [facility] [place] [address] * Basic Metabolic Panel (non-fasting) (07/28/2017 3:47 AM EDT) Glucose 110 65 - 199 mg/dL [facility] Comment:Diabetes: >=200 mg/d L plus symptoms Blood Urea Nitrogen 19 10 - 20 mg/dL [facility] Creatinine 0.96 0.80 - 1.50 mg/dL [facility] Comment: Please note that the pediatric reference intervals supplied above were not validated at [facility]. Results from pediatric patients should be interpreted [...] 107 mmol/L [facility] Carbon Dioxide 24 22 - 31 mmol/L [facility] Anion Gap 15 5 - 15 mmol/L [facility] Calcium 8.9 8.5 - 10.5 mg/dL [facility] Est Glomerular Filtration Rate >60 [...] the following links into your internet browser. [email or web address] Blood specimen (specimen) 07/28/2017 3:47 AM EDT 07/28/2017 3:58 AM EDT Narrative Resulting Agency Comment Spec In Lab Sriram Contreras MD CHEMISTRY ORDERABL ES [facility] [place] [address] * POCT Glucose (07/27/2017 11:52 PM EDT) Glucose, POC 94 65 - 199 mg/dL [facility] Comment: Supplemental ranges: <140 mg/dL before meals <180 mg/dL all other times of the day Blood specimen (specimen) 07/27/2017 11:52 PM EDT 07/27/2017 11:52 PM EDT Sriram Contreras MD POINT OF CARE TEST ORDERABLES [facility] [place] [address] * Heparin, low molecular weight assay (07/27/2017 8:19 PM EDT) Heparin [id number] 0.67 IU/mL [facility] [...] Lab rSiram Contreras MD HEMATOLOGY ORDERAB LES Performing Organization Address City/[facility] Co de Phone Number [facility] [place] [address] * POCT Glucose (07/27/2017 7:35 PM EDT) Glucose, POC 118 65 - 199 mg/dL [facility] Comment: Supplemental ranges: <140 mg/dL before meals <180 mg/dL all other times of the day Blood specimen (specimen) 07/27/2017 7:35 PM EDT 07/27/2017 7:35 PM EDT Sriram Contreras MD POINT OF CARE TEST ORDERABLES Performing Organization Address [facility] Co de Phone Number [facility] [place] [address] * POCT Glucose (07/27/2017 3:28 PM EDT) Glucose, POC 104 65 - 199 mg/dL [facility] Comment: Supplemental ranges: <140 mg/dL before meals <180 mg/dL all other times of the day Blood specimen (specimen) 07/27/2017 3:28 PM EDT 07/27/2017 3:28 PM EDT Sriram Contreras MD POINT OF CARE TEST ORDERABLES Performing Organization Address City/[facility] Co de Phone Number [facility] [place] [address] * POCT Glucose (07/27/2017 11:06 AM EDT) Glucose, POC 147 65 - 199 mg/dL [facility] Comment: Supplemental ranges: <140 mg/dL before meals <180 mg/dL all other times of the day Blood specimen (specimen) 07/27/2017 11:06 AM EDT 07/27/2017 11:06 AM EDT Sriram Contreras MD POINT OF CARE TEST ORDERABLES Performing Organization Address [facility] Co de Phone Number [facility] [place] [address] * POCT Glucose (07/27/2017 7:25 AM EDT) Glucose, POC 105 65 - 199 mg/dL [facility] Comment: Supplemental ranges: <140 mg/dL before meals <180 mg/dL all other times of the day Blood specimen (specimen) 07/27/2017 7:25 AM EDT 07/27/2017 7:25 AM EDT Sriram Contreras MD POINT OF CARE TEST ORDERABLES Performing Organization Address [facility] Co de Phone Number [facility] [place] [address] * Duplex Study for DVT, Bilat legs (07/27/2017 6:59 AM EDT) VB Text Report Department: Vascular Surgery Lab Patient: [id number] (BOWDONJOSE) CPT: 96827 ICD10: I26.99 Referring Physician: SRIRAM CONTRERAS ?? [...] MD VASCULAR ORDERABLE S Performing Organization Address City/[facility]/ZIP Co de Phone Number [employer] * POCT Glucose (07/27/2017 3:52 AM EDT) Glucose, POC 106 65 - 199 mg/dL [facility] Comment: Supplemental ranges: <140 mg/dL before meals <180 mg/dL all other times of the day Blood specimen (specimen) 07/27/2017 3:52 AM EDT 07/27/2017 3:52 AM EDT Sriram Contreras MD POINT OF CARE TEST ORDERABLES Performing Organization Address City/[facility]/ZIP Co de Phone Number [facility] [place] [address] * (ABNORMAL) APTT (07/27/2017 2:45 AM EDT) Partial Thromboplastin Time 92(H) 25 - 35 sec [facility] Comment: The recommended therapeutic range for full dose, unfractionated heparin at [facility] is 80 ? 114 seconds. The use of the anti-Xa (heparin) level rather than the PTT is recommended for monitoring anticoagulation intensity in critically ill patients receiving unfractionated heparin by continuous IV infusion. Blood specimen (specimen) 07/27/2017 2:45 AM EDT 07/27/2017 2:55 AM EDT Narrative Resulting Agency Comment Spec In Lab Sriram Contreras MD HEMATOLOGY ORDERAB LES Performing Organization Address [facility]/ZIP Co de Phone Number [facility] [place] [address] * (ABNORMAL) Differential, Automated (07/27/2017 2:45 AM EDT) Neutrophil % 67.8 % [facility] Neutrophil Absolute 8.40(H) 1.70 - 6.10 x10(3)/ L [facility] Lymph % 17.4 % [facility] Lymphocytes Abs 2.2 0.9 - 3.2 x10(3)/[facility] Monocyte % 9.5 % [facility] Monocyte Abs 1.2(H) 0.3 - 0.9 x10(3)/[facility] Eos % 1.4 % [facility] Eosinophils Abs 0.2 0.0 - 0.4 x10(3)/[facility] Basophil % 0.9 % [facility] Baso Absolute 0.1 0.0 - 0.1 x10(3)/[facility] Immature Gran % 3.00 % [facility] Comment: Immature granulocytes(IG's)percentage and absolute count will include metamyelocytes, myelocytes, and promyelocytes. Blood smears from CBCs yielding IG's will be scanned manually for concordance. If this scan disagrees with the automated IG or if promyelocytes are noted, a manual differential will be performed. Immature Gran Absolute 0.37(H) 0.00 - 0.04 x10(3)/ L [facility] Blood specimen (specimen) 07/27/2017 2:45 AM EDT 07/27/2017 2:55 AM EDT Narrative Resulting Agency Comment Spec In Lab Sriram Contreras MD HEMATOLOGY ORDERAB LES Performing Organization Address City/[facility]/ZIP Co de Phone Number [facility] [place] [address] * (ABNORMAL) Hemogram (07/27/2017 2:45 AM EDT) [facility] White Blood Cell 12.4(H) 4.0 - 9.5 x10(3)/[facility] Red Blood Cell 4.66 4.58 - 5.54 x10(6)/[facility] Hemoglobin 14.3 13.7 - 16.5 gm/dL [facility] Hematocrit 42.0 40.5 - 48.5 % [facility] Mean Cell Volume 90.1 82.9 - 93.1 fL [facility] Mean Cell Hemoglobin 30.7 27.5 - 32.1 pg [facility] Mean Cell Hemoglobin Concentration 34.0 32.0 - 35.7 gm/dL [facility] Platelet 288 145 - 357 x10(3)/[facility] RDW Standard Deviation 45.5(H) 36.0 - 45.0 [facility] RDW coefficient of variation 14.0(H) 11.4 - 13.8 % [facility] Mean Platelet Volume 9.7 7.6 - 12.9 fL [facility] NRBC% auto 0.0 % [facility] NRBC Absolute 0.000 0.000 - 0.000 x10(3)/[facility] Blood specimen (specimen) 07/27/2017 2:45 AM EDT 07/27/2017 2:55 AM EDT Narrative Resulting Agency Comment Spec In Lab Sriram Contreras MD HEMATOLOGY ORDERAB LES [facility] [place] [address] * (ABNORMAL) Basic Metabolic Panel (non-fasting) (07/27/2017 2:45 AM EDT) [facility] Glucose 169 65 - 199 mg/dL [facility] Comment:Diabetes: >=200 mg/d L plus symptoms Blood Urea Nitrogen 22(H) 10 - 20 mg/dL [facility] Creatinine 0.92 0.80 - 1.50 mg/dL [facility] Comment: Please note that the pediatric reference intervals supplied above were not validated at [facility]. Results from pediatric patients should be interpreted [...] 107 mmol/L [facility] Carbon Dioxide 23 22 - 31 mmol/L [facility] Anion Gap 16(H) 5 - 15 mmol/L [facility] Calcium 9.4 8.5 - 10.5 mg/dL [facility] Est Glomerular Filtration Rate >60 [...] the following links into your internet browser. [email or web address] Blood specimen (specimen) 07/27/2017 2:45 AM EDT 07/27/2017 2:55 AM EDT Narrative Resulting Agency Comment Spec In Lab Sriram Contreras MD CHEMISTRY ORDERABL ES [facility] [place] [address] * Phosphorus (07/27/2017 2:45 AM EDT) [facility] Phosphorus 4.3 2.5 - 4.5 mg/dL [facility] Blood specimen (specimen) 07/27/2017 2:45 AM EDT 07/27/2017 2:55 AM EDT Narrative Resulting Agency Comment Spec In Lab Sriram Contreras MD CHEMISTRY ORDERABL ES Performing Organization Address City/[facility]/ZIP Co de Phone Number [facility] [place] [address] * Magnesium (07/27/2017 2:45 AM EDT) [facility] Magnesium 0.79 0.69 - 1.07 mmol/L [facility] Blood specimen (specimen) 07/27/2017 2:45 AM EDT 07/27/2017 2:55 AM EDT Narrative Resulting Agency Comment Spec In Lab Sriram Contreras MD CHEMISTRY ORDERABL ES Performing Organization Address [facility] Co de Phone Number [facility] [place] [address] * POCT Glucose (07/27/2017 12:02 AM EDT) [facility] Glucose, POC 112 65 - 199 mg/dL [facility] Comment: Supplemental ranges: <140 mg/dL before meals <180 mg/dL all other times of the day Blood specimen (specimen) 07/27/2017 12:02 AM EDT 07/27/2017 12:02 AM EDT Sriram Contreras MD POINT OF CARE TEST ORDERABLES Performing Organization Address City/[facility] Co de Phone Number [facility] [place] [address] * (ABNORMAL) APTT (07/26/2017 9:29 PM EDT) Partial Thromboplastin Time 90(H) 25 - 35 sec [facility] Comment: The recommended therapeutic range for full dose, unfractionated heparin at [facility] is 80 ? 114 seconds. The use of the anti-Xa (heparin) level rather than the PTT is recommended for monitoring anticoagulation intensity in critically ill patients receiving unfractionated heparin by continuous IV infusion. Blood specimen (specimen) 07/26/2017 9:29 PM EDT 07/26/2017 9:32 PM EDT Narrative Resulting Agency Comment Spec In Lab Sriram Contreras MD HEMATOLOGY ORDERAB LES Performing Organization Address City/[facility]/ZIP Co de Phone Number [facility] [place] [address] * POCT Glucose (07/26/2017 8:14 PM EDT) Glucose, POC 116 65 - 199 mg/dL [facility] Comment: Supplemental ranges: <140 mg/dL before meals <180 mg/dL all other times of the day Blood specimen (specimen) 07/26/2017 8:14 PM EDT 07/26/2017 8:14 PM EDT Sriram Contreras MD POINT OF CARE TEST ORDERABLES Performing Organization Address [facility]/ZIP Co de Phone Number [facility] [place] [address] * POCT Glucose (07/26/2017 3:20 PM EDT) Glucose, POC 125 65 - 199 mg/dL [facility] Comment: Supplemental ranges: <140 mg/dL before meals <180 mg/dL all other times of the day Blood specimen (specimen) 07/26/2017 3:20 PM EDT 07/26/2017 3:20 PM EDT Sriram Contreras MD POINT OF CARE TEST ORDERABLES Performing Organization Address City/[facility]/ZIP Co de Phone Number [facility] [place] [address] * (ABNORMAL) APTT (07/26/2017 1:51 PM EDT) Partial Thromboplastin Time 88(H) 25 - 35 sec [facility] Comment: The recommended therapeutic range for full dose, unfractionated heparin at [facility] is 80 ? 114 seconds. The use of the anti-Xa (heparin) level rather than the PTT is recommended for monitoring anticoagulation intensity in critically ill patients receiving unfractionated heparin by continuous IV infusion. Blood specimen (specimen) 07/26/2017 1:51 PM EDT 07/26/2017 1:55 PM EDT Narrative Resulting Agency Comment Spec In Lab Sriram Contreras MD HEMATOLOGY ORDERAB LES Performing Organization Address [facility] [place]ZIP Co de Phone Number [facility] [place] [address] * POCT Glucose (07/26/2017 11:12 AM EDT) Glucose, POC 120 65 - 199 mg/dL [facility] Comment: Supplemental ranges: <140 mg/dL before meals <180 mg/dL all other times of the day Blood specimen (specimen) 07/26/2017 11:12 AM EDT 07/26/2017 11:12 AM EDT Sriram Contreras MD POINT OF CARE TEST ORDERABLES Performing Organization Address City/[facility] [place]/ZIP Co de Phone Number [facility] [place] [address] * POCT Glucose (07/26/2017 7:35 AM EDT) Glucose, POC 115 65 - 199 mg/dL [facility] Comment: Supplemental ranges: <140 mg/dL before meals <180 mg/dL all other times of the day Blood specimen (specimen) 07/26/2017 7:35 AM EDT 07/26/2017 7:35 AM EDT Sriram Contreras MD POINT OF CARE TEST ORDERABLES Performing Organization Address [facility] Co de Phone Number [facility] [place] [address] * (ABNORMAL) APTT (07/26/2017 3:30 AM EDT) Partial Thromboplastin Time 60(H) 25 - 35 sec [facility] Comment: The recommended therapeutic range for full dose, unfractionated heparin at [facility] is 80 ? 114 seconds. The use of the anti-Xa (heparin) level rather than the PTT is recommended for monitoring anticoagulation intensity in critically ill patients receiving unfractionated heparin by continuous IV infusion. Blood specimen (specimen) 07/26/2017 3:30 AM EDT 07/26/2017 4:11 AM EDT Narrative Resulting Agency Comment Spec In Lab Sriram Contreras MD HEMATOLOGY ORDERAB LES Performing Organization Address [facility] Co de Phone Number [facility] [place] [address] * (ABNORMAL) Differential, Automated (07/26/2017 3:30 AM EDT) Pathologist [facility] Neutrophil % 68.7 % [facility] Neutrophil Absolute 8.50(H) 1.70 - 6.10 x10(3)/mc L [facility] Lymph % 14.3 % [facility] Lymphocytes Abs 1.8 0.9 - 3.2 x10(3)/mc L [facility] Monocyte % 9.6 % [facility] Monocyte Abs 1.2(H) 0.3 - 0.9 x10(3)/mc L [facility] Eos % 1.3 % [facility] Eosinophils Abs 0.2 0.0 - 0.4 x10(3)/mc L [facility] Basophil % 1.4 % [facility] Baso Absolute 0.2(H) 0.0 - 0.1 x10(3)/mc L [facility] Immature Gran % 4.70 % [facility] Comment: Immature granulocytes(IG's)percentage and absolute count will include metamyelocytes, myelocytes, and promyelocytes. Blood smears from CBCs yielding IG's will be scanned manually for concordance. If this scan disagrees with the automated IG or if promyelocytes are noted, a manual differential will be performed. Immature Gran Absolute 0.58(H) 0.00 - 0.04 x10(3)/mc L [facility] Blood specimen (specimen) 07/26/2017 3:30 AM EDT 07/26/2017 4:11 AM EDT Narrative Resulting Agency Comment Spec In Lab Sriram Contreras MD HEMATOLOGY ORDERAB LES Performing Organization Address City/State/[facility] Co de Phone Number [facility] [place] [address] * (ABNORMAL) Hemogram (07/26/2017 3:30 AM EDT) White Blood Cell 12.4(H) 4.0 - 9.5 x10(3)/mc L [facility] Red Blood Cell 4.87 4.58 - 5.54 x10(6)/mc L [facility] Hemoglobin 15.2 13.7 - 16.5 gm/dL [facility] Hematocrit 44.1 40.5 - 48.5 % [facility] Mean Cell Volume 90.6 82.9 - 93.1 fL [facility] Mean Cell Hemoglobin 31.2 27.5 - 32.1 pg [facility] Mean Cell Hemoglobin Concentration 34.5 32.0 - 35.7 gm/dL [facility] Platelet 253 145 - 357 x10(3)/mc L [facility] RDW Standard Deviation 44.8 36.0 - 45.0 fL [facility] RDW coefficient of variation 13.6 11.4 - 13.8 % [facility] Mean Platelet Volume 10.4 7.6 - 12.9 fL [facility] NRBC% auto 0.2 % [facility] NRBC Absolute 0.020(H) 0.000 - 0.000 x10(3)/mc L [facility] Blood specimen (specimen) 07/26/2017 3:30 AM EDT 07/26/2017 4:11 AM EDT Narrative Resulting Agency Comment Spec In Lab Sriram Contreras MD HEMATOLOGY ORDERAB LES [facility] [place] [address] * Basic Metabolic Panel (non-fasting) (07/26/2017 3:30 AM EDT) Glucose 123 65 - 199 mg/dL [facility] Comment:Diabetes: >=200 mg/d L plus symptoms Blood Urea Nitrogen 18 10 - 20 mg/dL [facility] Creatinine 0.85 0.80 - 1.50 mg/dL [facility] Comment: Please note that the pediatric reference intervals supplied above were not validated at [facility]. Results from pediatric patients should be interpreted [...] 107 mmol/L [facility] Carbon Dioxide 25 22 - 31 mmol/L [facility] Anion Gap 14 5 - 15 mmol/L [facility] Calcium 9.2 8.5 - 10.5 mg/dL [facility] Est Glomerular Filtration Rate >60 [...] the following links into your internet browser. [email or web address] Blood specimen (specimen) 07/26/2017 3:30 AM EDT 07/26/2017 4:11 AM EDT Narrative Resulting Agency Comment Spec In Lab Sriram Contreras MD CHEMISTRY ORDERABL ES Performing Organization Address [facility] Phone Number [facility] [place] [address] * Prealbumin (07/26/2017 3:30 AM EDT) Prealbumin 26 20 - 40 mg/dL [facility] Comment: Prealbumin levels are generally lower in the pediatric population; adult concentrations are usually attained near puberty. Blood specimen (specimen) 07/26/2017 3:30 AM EDT 07/26/2017 4:11 AM EDT Narrative Resulting Agency Comment Spec In Lab Sriram Contreras MD CHEMISTRY ORDERABL ES Performing Organization Address [facility] de Phone Number [facility] [place] [address] * POCT Glucose (07/26/2017 3:27 AM EDT) Glucose, POC 116 65 - 199 mg/dL [facility] Comment: Supplemental ranges: <140 mg/dL before meals <180 mg/dL all other times of the day Blood specimen (specimen) 07/26/2017 3:27 AM EDT 07/26/2017 3:27 AM EDT Sriram Contreras MD POINT OF CARE TEST ORDERABLES Performing Organization Address [facility] Phone Number [facility] [place] [address] * POCT Glucose (07/25/2017 7:50 PM EDT) Glucose, POC 109 65 - 199 mg/dL [facility] Comment: Supplemental ranges: <140 mg/dL before meals <180 mg/dL all other times of the day Blood specimen (specimen) 07/25/2017 7:50 PM EDT 07/25/2017 7:50 PM EDT Sriram Contreras MD POINT OF CARE TEST ORDERABLES Performing Organization Address [facility] Co de Phone Number [facility] [place] [address] * (ABNORMAL) APTT (07/25/2017 5:51 PM EDT) Partial Thromboplastin Time 112(H) 25 - 35 sec [facility] Comment: The recommended therapeutic range for full dose, unfractionated heparin at [facility] is 80 ? 114 seconds. The use of the anti-Xa (heparin) level rather than the PTT is recommended for monitoring anticoagulation intensity in critically ill patients receiving unfractionated heparin by continuous IV infusion. Blood specimen (specimen) 07/25/2017 5:51 PM EDT 07/25/2017 5:55 PM EDT Narrative Resulting Agency Comment Spec In Lab Sriram Contreras MD HEMATOLOGY ORDERAB LES Performing Organization Address City/[facility] [place]/ZIP Co de Phone Number [facility] [place] [address] * POCT Glucose (07/25/2017 4:01 PM EDT) Glucose, POC 109 65 - 199 mg/dL [facility] Comment: Supplemental ranges: <140 mg/dL before meals <180 mg/dL all other times of the day Blood specimen (specimen) 07/25/2017 4:01 PM EDT 07/25/2017 4:01 PM EDT Sriram Contreras MD POINT OF CARE TEST ORDERABLES Performing Organization Address [facility] Co de Phone Number [facility] [place] [address] * POCT Glucose (07/25/2017 12:10 PM EDT) Pathologist [facility] Glucose, POC 117 65 - 199 mg/dL [facility] Comment: Supplemental ranges: <140 mg/dL before meals <180 mg/dL all other times of the day Blood specimen (specimen) 07/25/2017 12:10 PM EDT 07/25/2017 12:10 PM EDT Sriram Contreras MD POINT OF CARE TEST ORDERABLES Performing Organization Address [facility] de Phone Number [facility] [place] [address] * Potassium (07/25/2017 11:00 AM EDT) [facility] Potassium 3.9 3.5 - 5.0 mmol/L [place] [...] MD CHEMISTRY ORDERABL ES Performing Organization Address [facility] Co de Phone Number [facility] [place] [address] * (ABNORMAL) APTT (07/25/2017 11:00 AM EDT) [facility] Partial Thromboplastin Time 102(H) 25 - 35 sec [facility] Comment: The recommended therapeutic range for full dose, unfractionated heparin at [facility] is 80 ? 114 seconds. The use of the anti-Xa (heparin) level rather than the PTT is recommended for monitoring anticoagulation intensity in critically ill patients receiving unfractionated heparin by continuous IV infusion. Blood specimen (specimen) 07/25/2017 11:00 AM EDT 07/25/2017 11:05 AM EDT Narrative Resulting Agency Comment Spec In Lab Sriram Contreras MD HEMATOLOGY ORDERAB LES Performing Organization Address [facility] Co de Phone Number [facility] [place] [address] * POCT Glucose (07/25/2017 8:27 AM EDT) Glucose, POC 124 65 - 199 mg/dL [facility] Comment: Supplemental ranges: <140 mg/dL before meals <180 mg/dL all other times of the day Blood specimen (specimen) 07/25/2017 8:27 AM EDT 07/25/2017 8:27 AM EDT Sriram Contreras MD POINT OF CARE TEST ORDERABLES Performing Organization Address [facility] Co de Phone Number [facility] [place] [address] * (ABNORMAL) BLOOD GAS 2 ARTERIAL (07/25/2017 6:19 AM EDT) pH, Arterial 7.51(H) 7.35 - 7.45 [facility] PCO2, Arterial 29(L) 35 - 45 mmHg [facility] PO2, Arterial 59(L) 85 - 104 mmHg [facility] Bicarbonate, Arterial 22.2 20.0 - 26.0 mmol/L [facility] Base Excess, Arterial -0.9 -3.0 - 3.0 mmol/L [facility] Hgb Blood Gas 14.6 13.7 - 16.5 gm/dL [facility] Oxyhemoglobin, Arterial 91.1(L) 94.0 - 97.0 % [facility] Carboxyhemoglob in, Arterial 0.3 % [facility] Comment: Nonsmokers: 0.5-1.5% COHB Smokers: Variable, but usually less than 10% Toxic: 20-30% COHB Lethal: Greater than 60% COHB Methemoglobin, Arterial 0.6 <=1.5 % [facility] Na Whole Blood 141 135 [...] OF CARE TEST ORDERABLES Performing Organization Address [facility] Co de Phone Number [facility] [place] [address] * POCT Glucose (07/25/2017 4:41 AM EDT) Glucose, POC 101 65 - 199 mg/dL [facility] Comment: Supplemental ranges: <140 mg/dL before meals <180 mg/dL all other times of the day Blood specimen (specimen) 07/25/2017 4:41 AM EDT 07/25/2017 4:41 AM EDT Sriram Contreras MD POINT OF CARE TEST ORDERABLES Performing Organization Address City/[facility] [place]/ZIP Co de Phone Number [facility] [place] [address] * Magnesium (07/25/2017 4:37 AM EDT) Pathologist [facility] Magnesium 0.83 0.69 - 1.07 mmol/L [facility] Blood specimen (specimen) Venous Draw / Unknown 07/25/2017 4:37 AM EDT 07/25/2017 4:50 AM EDT Narrative Resulting Agency Comment Spec In Lab Sriram Contreras MD CHEMISTRY ORDERABL ES [facility] [place] [address] * (ABNORMAL) Differential, Automated (07/25/2017 4:37 AM EDT) [facility] Neutrophil % 68.4 % [facility] Neutrophil Absolute 8.77(H) 1.70 - 6.10 x10(3)/mc L [facility] Lymph % 15.0 % [facility] Lymphocytes Abs 1.9 0.9 - 3.2 x10(3)/mc L [facility] Monocyte % 8.9 % [facility] Monocyte Abs 1.1(H) 0.3 - 0.9 x10(3)/mc L [facility] Eos % 1.9 % [facility] Eosinophils Abs 0.2 0.0 - 0.4 x10(3)/mc L [facility] Basophil % 1.0 % [facility] Baso Absolute 0.1 0.0 - 0.1 x10(3)/mc L [place] [...] Absolute 0.62(H) 0.00 - 0.04 x10(3)/ L [facility] Blood specimen (specimen) 07/25/2017 4:37 AM EDT 07/25/2017 4:48 AM EDT Narrative Resulting Agency Comment Spec In Lab Sriram Contreras MD HEMATOLOGY ORDERAB LES Performing Organization Address City/State/[facility] Co de Phone Number [facility] [place] [address] * (ABNORMAL) Hemogram (07/25/2017 4:37 AM EDT) White Blood Cell 12.8(H) 4.0 - 9.5 x10(3)/[facility] Red Blood Cell 4.53(L) 4.58 - 5.54 x10(6)/[facility] Hemoglobin 14.0 13.7 - 16.5 gm/dL [facility] Hematocrit 40.3(L) 40.5 - 48.5 % [facility] Mean Cell Volume 89.0 82.9 - 93.1 [facility] Mean Cell Hemoglobin 30.9 27.5 - 32.1 pg [facility] Mean Cell Hemoglobin Concentration 34.7 32.0 - 35.7 gm/dL [facility] Platelet 241 145 - 357 x10(3)/[facility] RDW Standard Deviation 43.1 36.0 - 45.0 [facility] RDW coefficient of variation 13.2 11.4 - 13.8 % [facility] Mean Platelet Volume 9.9 7.6 - 12.9 [facility] NRBC% auto 0.0 % [facility] NRBC Absolute 0.000 0.000 - 0.000 x10(3)/ L [facility] Blood specimen (specimen) 07/25/2017 4:37 AM EDT 07/25/2017 4:48 AM EDT Narrative Resulting Agency Comment Spec In Lab Sriram Contreras MD HEMATOLOGY ORDERAB LES [facility] [place] [address] * Basic Metabolic Panel (non-fasting) (07/25/2017 4:37 AM EDT) Glucose 120 65 - 199 mg/dL [facility] Comment:Diabetes: >=200 mg/d L plus symptoms Blood Urea Nitrogen 14 10 - 20 mg/dL [facility] Creatinine 0.81 0.80 - 1.50 mg/dL [facility] Comment: Please note that the pediatric reference intervals supplied above were not validated at [facility]. Results from pediatric patients should be interpreted [...] 107 mmol/L [facility] Carbon Dioxide 24 22 - 31 mmol/L [facility] Anion Gap 13 5 - 15 mmol/L [facility] Calcium 8.8 8.5 - 10.5 mg/dL [facility] Est Glomerular Filtration Rate >60 [...] the following links into your internet browser. [email or web address] Blood specimen (specimen) 07/25/2017 4:37 AM EDT 07/25/2017 4:48 AM EDT Narrative Resulting Agency Comment Spec In Lab Sriram Contreras MD CHEMISTRY ORDERABL ES Performing Organization Address [facility] de Phone Number [facility] [place] [address] * (ABNORMAL) APTT (07/25/2017 4:37 AM EDT) Partial Thromboplastin Time 122(H) 25 - 35 sec [facility] Comment: The recommended therapeutic range for full dose, unfractionated heparin at [facility] is 80 ? 114 seconds. The use of the anti-Xa (heparin) level rather than the PTT is recommended for monitoring anticoagulation intensity in critically ill patients receiving unfractionated heparin by continuous IV infusion. Blood specimen (specimen) 07/25/2017 4:37 AM EDT 07/25/2017 4:48 AM EDT Narrative Resulting Agency Comment Spec In Lab Sriram Contreras MD HEMATOLOGY ORDERAB LES Performing Organization Address [facility] Phone Number [facility] [place] [address] * POCT Glucose (07/25/2017 12:10 AM EDT) Glucose, POC 108 65 - 199 mg/dL [facility] Comment: Supplemental ranges: <140 mg/dL before meals <180 mg/dL all other times of the day Blood specimen (specimen) 07/25/2017 12:10 AM EDT 07/25/2017 12:10 AM EDT Sriram Contreras MD POINT OF CARE TEST ORDERABLES Performing Organization Address [facility] Co de Phone Number [facility] [place] [address] * POCT Glucose (07/24/2017 8:05 PM EDT) Glucose, POC 112 65 - 199 mg/dL [facility] Comment: Supplemental ranges: <140 mg/dL before meals <180 mg/dL all other times of the day Blood specimen (specimen) 07/24/2017 8:05 PM EDT 07/24/2017 8:05 PM EDT Sriram Contreras MD POINT OF CARE TEST ORDERABLES [facility] [place] [address] * POCT Glucose (07/24/2017 8:04 PM EDT) Glucose, POC 106 65 - 199 mg/dL [facility] Comment: Supplemental ranges: <140 mg/dL before meals <180 mg/dL all other times of the day Blood specimen (specimen) 07/24/2017 8:04 PM EDT 07/24/2017 8:04 PM EDT Sriram Contreras MD POINT OF CARE TEST ORDERABLES Performing Organization Address City/[facility] [place]/ZIP Co de Phone Number [facility] [place] [address] * POCT Glucose (07/24/2017 3:42 PM EDT) Glucose, POC 108 65 - 199 mg/dL [facility] Comment: Supplemental ranges: <140 mg/dL before meals <180 mg/dL all other times of the day Blood specimen (specimen) 07/24/2017 3:42 PM EDT 07/24/2017 3:42 PM EDT Sriram Contreras MD POINT OF CARE TEST ORDERABLES [facility] [place] [address] * POCT Glucose (07/24/2017 11:42 AM EDT) Glucose, POC 102 65 - 199 mg/dL [facility] Comment: Supplemental ranges: <140 mg/dL before meals <180 mg/dL all other times of the day Blood specimen (specimen) 07/24/2017 11:42 AM EDT 07/24/2017 11:42 AM EDT Sriram Contreras MD POINT OF CARE TEST ORDERABLES Performing Organization Address City/[facility] Co de Phone Number [facility] [place] [address] * POCT Glucose (07/24/2017 8:00 AM EDT) Glucose, POC 107 65 - 199 mg/dL [facility] Comment: Supplemental ranges: <140 mg/dL before meals <180 mg/dL all other times of the day Blood specimen (specimen) 07/24/2017 8:00 AM EDT 07/24/2017 8:00 AM EDT Sriram Contreras MD POINT OF CARE TEST ORDERABLES Performing Organization Address City/[facility] Co de Phone Number [facility] [place] [address] * (ABNORMAL) BLOOD GAS 2 ARTERIAL (07/24/2017 7:28 AM EDT) pH, Arterial 7.44 7.35 - 7.45 [facility] PCO2, Arterial 39 35 - 45 mmHg [facility] PO2, Arterial 67(L) 85 - 104 mmHg [facility] Bicarbonate, Arterial 25.5 20.0 - 26.0 mmol/L [facility] Base Excess, Arterial 1.2 -3.0 - 3.0 mmol/L [facility] Hgb Blood Gas 13.8 13.7 - 16.5 gm/dL [facility] Oxyhemoglobin, Arterial 92.8(L) 94.0 - 97.0 % [facility] Carboxyhemoglob in, Arterial 0.3 % [facility] Comment: Nonsmokers: 0.5-1.5% COHB Smokers: Variable, but usually less than 10% Toxic: 20-30% COHB Lethal: Greater than 60% COHB Methemoglobin, Arterial 0.6 <=1.5 % [facility] Na Whole Blood 139 135 [...] [facility] FIO2 Art 30 % [facility] PF Ratio Art 223 [facility] Blood specimen (specimen) 07/24/2017 7:28 AM EDT 07/24/2017 7:28 AM EDT Sriram Contreras MD POINT OF CARE TEST ORDERABLES Performing Organization Address City/State/[facility] de Phone Number [facility] [place] [address] * Potassium (07/24/2017 7:28 AM EDT) Potassium [...] ORDERABL ES Performing Organization Address [facility] Co de Phone Number [facility] [place] [address] * POCT Glucose (07/24/2017 3:42 AM EDT) [facility] Glucose, POC 91 65 - 199 mg/dL [facility] Comment: Supplemental ranges: <140 mg/dL before meals <180 mg/dL all other times of the day Blood specimen (specimen) 07/24/2017 3:42 AM EDT 07/24/2017 3:42 AM EDT Sriram Contreras MD POINT OF CARE TEST ORDERABLES Performing Organization Address [facility] Number [facility] [place] [address] * Scan, Peripheral Blood (07/24/2017 1:00 AM EDT) [facility] Plat estimate Normal [facility] RBC Morphology Normal [facility] Blood specimen (specimen) Venous Draw / Unknown 07/24/2017 1:00 AM EDT 07/24/2017 1:15 AM EDT Narrative Resulting Agency Comment Spec In Lab Sriram Contreras MD HEMATOLOGY ORDERAB LES Performing Organization Address [facility] Co de Phone Number [facility] [place] [address] * (ABNORMAL) Differential, Automated (07/24/2017 1:00 AM EDT) [facility] Neutrophil % 69.9 % [facility] Neutrophil Absolute 9.34(H) 1.70 - 6.10 x10(3)/mc L [facility] Lymph % 13.7 % [facility] Lymphocytes Abs 1.8 0.9 - 3.2 x10(3)/[facility] LABORATORY Monocyte % 8.1 % [facility] Monocyte Abs 1.1(H) 0.3 - 0.9 x10(3)/[facility] LABORATORY Eos % 2.2 % [facility] Eosinophils Abs 0.3 0.0 - 0.4 x10(3)/[facility] LABOR[facility]ORY Basophil % 0.7 % [facility] Baso Absolute 0.1 0.0 - 0.1 x10(3)/[facility] LABORATORY Immature Gran % 5.40 % [facility] Comment: Immature granulocytes(IG's)percentage and absolute count will include metamyelocytes, myelocytes, and promyelocytes. Blood smears from CBCs yielding IG's will be scanned manually for concordance. If this scan disagrees with the automated IG or if promyelocytes are noted, a manual differential will be performed. Immature Gran Absolute 0.72(H) 0.00 - 0.04 x10(3)/[facility] LABORATORY Blood specimen (specimen) 07/24/2017 1:00 AM EDT 07/24/2017 1:15 AM EDT Narrative Resulting Agency Comment Spec In Lab Sriram Contreras MD HEMATOLOGY ORDERAB LES Performing Organization Address City/State/[facility] Co de Phone Number [facility] [place] [address] * (ABNORMAL) Hemogram (07/24/2017 1:00 AM EDT) White Blood Cell 13.4(H) 4.0 - 9.5 x10(3)/[facility] LABORATORY Red Blood Cell 4.13(L) 4.58 - 5.54 x10(6)/[facility] Hemoglobin 12.7(L) 13.7 - 16.5 gm/dL [facility] Hematocrit 38.0(L) 40.5 - 48.5 % [facility] Mean Cell Volume 92.0 82.9 - 93.1 fL [facility] Mean Cell Hemoglobin 30.8 27.5 - 32.1 pg [facility] Mean Cell Hemoglobin Concentration 33.4 32.0 - 35.7 gm/dL [facility] Platelet 201 145 - 357 x10(3)/mc L [facility] RDW Standard Deviation 45.5(H) 36.0 - 45.0 fL [facility] RDW coefficient of variation 13.4 11.4 - 13.8 % [facility] Mean Platelet Volume 10.1 7.6 - 12.9 fL [facility] NRBC% auto 0.0 % [facility] NRBC Absolute 0.000 0.000 - 0.000 x10(3)/mc L [facility] Blood specimen (specimen) 07/24/2017 1:00 AM EDT 07/24/2017 1:15 AM EDT Narrative Resulting Agency Comment Spec In Lab Sriram Contreras MD HEMATOLOGY ORDERAB LES Performing Organization Address [facility] Co de Phone Number [facility] [place] [address] * (ABNORMAL) APTT (07/24/2017 1:00 AM EDT) [facility] Partial Thromboplastin Time 102(H) 25 - 35 sec [facility] Comment: The recommended therapeutic range for full dose, unfractionated heparin at [facility] is 80 ? 114 seconds. The use of the anti-Xa (heparin) level rather than the PTT is recommended for monitoring anticoagulation intensity in critically ill patients receiving unfractionated heparin by continuous IV infusion. Blood specimen (specimen) 07/24/2017 1:00 AM EDT 07/24/2017 1:14 AM EDT Narrative Resulting Agency Comment Spec In Lab Sriram Contreras MD HEMATOLOGY ORDERAB LES Performing Organization Address City/[facility]/ZIP Co de Phone Number [facility] [place] [address] * (ABNORMAL) Basic Metabolic Panel (non-fasting) (07/24/2017 1:00 AM EDT) Glucose 103 65 - 199 mg/dL [facility] Comment:Diabetes: >=200 mg/d L plus symptoms Blood Urea Nitrogen 17 10 - 20 mg/dL [facility] Creatinine 0.70(L) 0.80 - 1.50 mg/dL [facility] Comment: Please note that the pediatric reference intervals supplied above were not validated at [facility]. Results from pediatric patients should be interpreted [...] 107 mmol/L [facility] Carbon Dioxide 27 22 - 31 mmol/L [facility] Anion Gap 12 5 - 15 mmol/L [facility] Calcium 8.7 8.5 - 10.5 mg/dL [facility] Est Glomerular Filtration Rate >60 [...] the following links into your internet browser. [email or web address] Blood specimen (specimen) 07/24/2017 1:00 AM EDT 07/24/2017 1:14 AM EDT Narrative Resulting Agency Comment Spec In Lab Sriram Contreras MD CHEMISTRY ORDERABL ES Performing Organization Address [facility] Co de Phone Number [facility] [place] [address] * POCT Glucose (07/23/2017 11:53 PM EDT) Glucose, POC 95 65 - 199 mg/dL [facility] Comment: Supplemental ranges: <140 mg/dL before meals <180 mg/dL all other times of the day Blood specimen (specimen) 07/23/2017 11:53 PM EDT 07/23/2017 11:53 PM EDT Sriram Contreras MD POINT OF CARE TEST ORDERABLES Performing Organization Address [facility] Co de Phone Number [facility] [place] [address] * POCT Glucose (07/23/2017 7:52 PM EDT) Glucose, POC 91 65 - 199 mg/dL [facility] Comment: Supplemental ranges: <140 mg/dL before meals <180 mg/dL all other times of the day Blood specimen (specimen) 07/23/2017 7:52 PM EDT 07/23/2017 7:52 PM EDT Sriram Contreras MD POINT OF CARE TEST ORDERABLES Performing Organization Address [facility] Co de Phone Number [facility] [place] [address] * POCT Glucose (07/23/2017 2:56 PM EDT) Glucose, POC 115 65 - 199 mg/dL [facility] Comment: Supplemental ranges: <140 mg/dL before meals <180 mg/dL all other times of the day Blood specimen (specimen) 07/23/2017 2:56 PM EDT 07/23/2017 2:56 PM EDT Sriram Contreras MD POINT OF CARE TEST ORDERABLES Performing Organization Address [facility] Co de Phone Number [facility] [place] [address] * (ABNORMAL) APTT (07/23/2017 2:55 PM EDT) Partial Thromboplastin Time 101(H) 25 - 35 sec [facility] Comment: The recommended therapeutic range for full dose, unfractionated heparin at [facility] is 80 ? 114 seconds. The use of the anti-Xa (heparin) level rather than the PTT is recommended for monitoring anticoagulation intensity in critically ill patients receiving unfractionated heparin by continuous IV infusion. Blood specimen (specimen) 07/23/2017 2:55 PM EDT 07/23/2017 3:04 PM EDT Narrative Resulting Agency Comment Spec In Lab Sriram Contreras MD HEMATOLOGY ORDERAB LES Performing Organization Address [facility] Co de Phone Number [facility] [place] [address] * POCT Glucose (07/23/2017 12:07 PM EDT) [facility] Glucose, POC 97 65 - 199 mg/dL [facility] Comment: Supplemental ranges: <140 mg/dL before meals <180 mg/dL all other times of the day Blood specimen (specimen) 07/23/2017 12:07 PM EDT 07/23/2017 12:07 PM EDT Sriram Contreras MD POINT OF CARE TEST ORDERABLES Performing Organization Address [facility] Co de Phone Number [facility] [place] [address] * (ABNORMAL) APTT (07/23/2017 8:27 AM EDT) Partial Thromboplastin Time 95(H) 25 - 35 sec [facility] Comment: The recommended therapeutic range for full dose, unfractionated heparin at [facility] is 80 ? 114 seconds. The use of the anti-Xa (heparin) level rather than the PTT is recommended for monitoring anticoagulation intensity in critically ill patients receiving unfractionated heparin by continuous IV infusion. Blood specimen (specimen) 07/23/2017 8:27 AM EDT 07/23/2017 8:51 AM EDT Narrative Resulting Agency Comment Spec In Lab Sriram Contreras MD HEMATOLOGY ORDERAB LES Performing Organization Address [facility] Co de Phone Number [facility] [place] [address] * POCT Glucose (07/23/2017 8:02 AM EDT) Glucose, POC 103 65 - 199 mg/dL [facility] Comment: Supplemental ranges: <140 mg/dL before meals <180 mg/dL all other times of the day Blood specimen (specimen) 07/23/2017 8:02 AM EDT 07/23/2017 8:02 AM EDT Sriram Contreras MD POINT OF CARE TEST ORDERABLES Performing Organization Address [facility] Co de Phone Number [facility] [place] [address] * (ABNORMAL) BLOOD GAS 2 ARTERIAL (07/23/2017 6:32 AM EDT) pH, Arterial 7.41 7.35 - 7.45 [facility] PCO2, Arterial 37 35 - 45 mmHg [facility] PO2, Arterial 60(L) 85 - 104 mmHg [facility] Bicarbonate, Arterial 22.6 20.0 - 26.0 mmol/L [facility] Base Excess, Arterial -2.0 -3.0 - 3.0 mmol/L [facility] Hgb Blood Gas 12.7(L) 13.7 - 16.5 gm/dL [facility] Oxyhemoglobin, Arterial 90.3(L) 94.0 - 97.0 % [facility] Carboxyhemoglob in, Arterial 0.3 % [facility] Comment: Nonsmokers: 0.5-1.5% COHB Smokers: Variable, but usually less than 10% Toxic: 20-30% COHB Lethal: Greater than 60% COHB Methemoglobin, Arterial 0.5 <=1.5 % [facility] Na Whole Blood 138 135 [...] [facility] FIO2 Art 30 % [facility] PF Ratio Art 200 [facility] Blood specimen (specimen) 07/23/2017 6:32 AM EDT 07/23/2017 6:32 AM EDT Sriram Contreras MD POINT OF CARE TEST ORDERABLES Performing Organization Address City/State/[facility] Co de Phone Number [facility] [place] [address] * Potassium (07/23/2017 4:15 AM EDT) Potassium [...] MD CHEMISTRY ORDERABL ES Performing Organization Address [facility] Phone Number [facility] [place] [address] * POCT Glucose (07/23/2017 3:50 AM EDT) [facility] Glucose, POC 126 65 - 199 mg/dL [facility] Comment: Supplemental ranges: <140 mg/dL before meals <180 mg/dL all other times of the day Blood specimen (specimen) 07/23/2017 3:50 AM EDT 07/23/2017 3:50 AM EDT Sriram Contreras MD POINT OF CARE TEST ORDERABLES Performing Organization Address [facility] Number [facility] [place] [address] * (ABNORMAL) APTT (07/23/2017 1:53 AM EDT) [facility] Partial Thromboplastin Time 119(H) 25 - 35 sec [facility] Comment: The recommended therapeutic range for full dose, unfractionated heparin at [facility] is 80 ? 114 seconds. The use of the anti-Xa (heparin) level rather than the PTT is recommended for monitoring anticoagulation intensity in critically ill patients receiving unfractionated heparin by continuous IV infusion. Blood specimen (specimen) 07/23/2017 1:53 AM EDT 07/23/2017 2:01 AM EDT Narrative Resulting Agency Comment Spec In Lab Sriram Contreras MD HEMATOLOGY ORDERAB LES Performing Organization Address [facility] Phone Number [facility] [place] [address] * (ABNORMAL) Differential, Automated (07/23/2017 12:45 AM EDT) [facility] Neutrophil % 63.2 % [facility] Neutrophil Absolute 6.47(H) 1.70 - 6.10 x10(3)/ L [facility] Lymph % 20.9 % [facility] Lymphocytes Abs 2.1 0.9 - 3.2 x10(3)/ L [facility] Monocyte % 7.6 % [facility] Monocyte Abs 0.8 0.3 - 0.9 x10(3)/[facility] LABORATORY Eos % 2.8 % [facility] Eosinophils Abs 0.3 0.0 - 0.4 x10(3)/[facility] LABORATORY Basophil % 0.7 % [facility] Baso Absolute 0.1 0.0 - 0.1 x10(3)/[facility] LABORATORY Immature Gran % 4.80 % [facility] Comment: Immature granulocytes(IG's)percentage and absolute count will include metamyelocytes, myelocytes, and promyelocytes. Blood smears from CBCs yielding IG's will be scanned manually for concordance. If this scan disagrees with the automated IG or if promyelocytes are noted, a manual differential will be performed. Immature Gran Absolute 0.49(H) 0.00 - 0.04 x10(3)/[facility] LABORATORY Blood specimen (specimen) 07/23/2017 12:45 AM EDT 07/23/2017 12:51 AM EDT Narrative Resulting Agency Comment Spec In Lab Sriram Contreras MD HEMATOLOGY ORDERAB LES [facility] [place] [address] * (ABNORMAL) Hemogram (07/23/2017 12:45 AM EDT) White Blood Cell 10.2(H) 4.0 - 9.5 x10(3)/[facility] LABORAT[facility] Red Blood Cell 3.62(L) 4.58 - 5.54 x10(6)/[facility] Hemoglobin 11.1(L) 13.7 - 16.5 gm/dL [facility] Hematocrit 33.5(L) 40.5 - 48.5 % [facility] Mean Cell Volume 92.5 82.9 - 93.1 fL [facility] Mean Cell Hemoglobin 30.7 27.5 - 32.1 pg [facility] Mean Cell Hemoglobin Concentration 33.1 32.0 - 35.7 gm/dL [facility] Platelet 165 145 - 357 x10(3)/mc L [facility] RDW Standard Deviation 46.6(H) 36.0 - 45.0 fL [facility] RDW coefficient of variation 13.7 11.4 - 13.8 % [facility] Mean Platelet Volume 9.9 7.6 - 12.9 [facility]AT[facility] NRBC% auto 0.0 % [facility] NRBC Absolute 0.000 0.000 - 0.000 x10(3)/mc L [facility] Blood specimen (specimen) 07/23/2017 12:45 AM EDT 07/23/2017 12:51 AM EDT Narrative Resulting Agency Comment Spec In Lab Sriram Contreras MD HEMATOLOGY ORDERAB LES [facility] [place] [address] * (ABNORMAL) Basic Metabolic Panel (non-fasting) (07/23/2017 12:45 AM EDT) Glucose 127 65 - 199 mg/dL [facility] Comment:Diabetes: >=200 mg/d L plus symptoms Blood Urea Nitrogen 20 10 - 20 mg/dL [facility] Creatinine 0.65(L) 0.80 - 1.50 mg/dL [facility] Comment: Please note that the pediatric reference intervals supplied above were not validated at [facility]. Results from pediatric patients should be interpreted [...] 107 mmol/L [facility] Carbon Dioxide 26 22 - 31 mmol/L [facility] Anion Gap 11 5 - 15 mmol/L [facility] Calcium 8.3(L) 8.5 - 10.5 mg/dL [facility] Est Glomerular Filtration Rate >60 [...] the following links into your internet browser. [email or web address] Blood specimen (specimen) 07/23/2017 12:45 AM EDT 07/23/2017 12:51 AM EDT Narrative Resulting Agency Comment Spec In Lab Sriram Contreras MD CHEMISTRY ORDERABL ES [facility] [place] [address] * POCT Glucose (07/22/2017 11:59 PM EDT) Glucose, POC 113 65 - 199 mg/dL [facility] Comment: Supplemental ranges: <140 mg/dL before meals <180 mg/dL all other times of the day Blood specimen (specimen) 07/22/2017 11:59 PM EDT 07/22/2017 11:59 PM EDT Sriram Contreras MD POINT OF CARE TEST ORDERABLES Performing Organization Address [facility] Co de Phone Number [facility] [place] [address] * POCT Glucose (07/22/2017 8:07 PM EDT) Glucose, POC 111 65 - 199 mg/dL [facility] Comment: Supplemental ranges: <140 mg/dL before meals <180 mg/dL all other times of the day Blood specimen (specimen) 07/22/2017 8:07 PM EDT 07/22/2017 8:07 PM EDT Sriram Contreras MD POINT OF CARE TEST ORDERABLES Performing Organization Address [facility] de Phone Number [facility] [place] [address] * POCT Glucose (07/22/2017 4:00 PM EDT) Glucose, POC 112 65 - 199 mg/dL [facility] Comment: Supplemental ranges: <140 mg/dL before meals <180 mg/dL all other times of the day Blood specimen (specimen) 07/22/2017 4:00 PM EDT 07/22/2017 4:00 PM EDT Sriram Contreras MD POINT OF CARE TEST ORDERABLES Performing Organization Address [facility] Co de Phone Number [facility] [place] [address] * (ABNORMAL) APTT (07/22/2017 4:00 PM EDT) Partial Thromboplastin Time 92(H) 25 - 35 sec [facility] Comment: The recommended therapeutic range for full dose, unfractionated heparin at [facility] is 80 ? 114 seconds. The use of the anti-Xa (heparin) level rather than the PTT is recommended for monitoring anticoagulation intensity in critically ill patients receiving unfractionated heparin by continuous IV infusion. Blood specimen (specimen) 07/22/2017 4:00 PM EDT 07/22/2017 4:18 PM EDT Narrative Resulting Agency Comment Spec In Lab Sriram Contreras MD HEMATOLOGY ORDERAB LES Performing Organization Address [facility] de Phone Number [facility] [place] [address] * POCT Glucose (07/22/2017 11:45 AM EDT) [facility] Glucose, POC 111 65 - 199 mg/dL [facility] Comment: Supplemental ranges: <140 mg/dL before meals <180 mg/dL all other times of the day Blood specimen (specimen) 07/22/2017 11:45 AM EDT 07/22/2017 11:45 AM EDT Sriram Contreras MD POINT OF CARE TEST ORDERABLES Performing Organization Address [facility] Phone Number [facility] [place] [address] * (ABNORMAL) APTT (07/22/2017 8:30 AM EDT) [facility] Partial Thromboplastin Time 83(H) 25 - 35 sec [facility] Comment: The recommended therapeutic range for full dose, unfractionated heparin at [facility] is 80 ? 114 seconds. The use of the anti-Xa (heparin) level rather than the PTT is recommended for monitoring anticoagulation intensity in critically ill patients receiving unfractionated heparin by continuous IV infusion. Blood specimen (specimen) 07/22/2017 8:30 AM EDT 07/22/2017 8:39 AM EDT Narrative Resulting Agency Comment Spec In Lab Sriram Contreras MD HEMATOLOGY ORDERAB LES Performing Organization Address [facility] de Phone Number [facility] [place] [address] * POCT Glucose (07/22/2017 8:28 AM EDT) Glucose, POC 118 65 - 199 mg/dL [facility] Comment: Supplemental ranges: <140 mg/dL before meals <180 mg/dL all other times of the day Blood specimen (specimen) 07/22/2017 8:28 AM EDT 07/22/2017 8:28 AM EDT Sriram Contreras MD POINT OF CARE TEST ORDERABLES Performing Organization Address City/State/[facility] Co de Phone Number [facility] [place] [address] * (ABNORMAL) BLOOD GAS 2 ARTERIAL (07/22/2017 8:27 AM EDT) [facility] pH, Arterial 7.42 7.35 - 7.45 [facility] PCO2, Arterial 39 35 - 45 mmHg [facility] PO2, Arterial 78(L) 85 - 104 mmHg [facility] Bicarbonate, Arterial 24.8 20.0 - 26.0 mmol/L [facility] Base Excess, Arterial 0.3 -3.0 - 3.0 mmol/L [facility] Hgb Blood Gas 13.4(L) 13.7 - 16.5 gm/dL [facility] Oxyhemoglobin, Arterial 94.2 94.0 - 97.0 % [facility] Carboxyhemoglob in, Arterial 0.3 % [facility] Comment: Nonsmokers: 0.5-1.5% COHB Smokers: Variable, but usually less than 10% Toxic: 20-30% COHB Lethal: Greater than 60% COHB Methemoglobin, Arterial 0.6 <=1.5 % [facility] Na Whole Blood 140 135 [...] [facility] FIO2 Art 40 % [facility] PF Ratio Art 195 [facility] Blood specimen (specimen) 07/22/2017 8:27 AM EDT 07/22/2017 8:27 AM EDT Sriram Contreras MD POINT OF CARE TEST ORDERABLES Performing Organization Address City/State/[facility] Co de Phone Number [facility] [place] [address] * (ABNORMAL) Differential, Automated (07/22/2017 3:10 AM EDT) Neutrophil % 72.0 % [facility] Neutrophil Absolute 8.75(H) 1.70 - 6.10 x10(3)/mc L [facility] Lymph % 15.0 % [facility] Lymphocytes Abs 1.8 0.9 - 3.2 x10(3)/mc L [facility] Monocyte % 8.0 % [facility] Monocyte Abs 1.0(H) 0.3 - 0.9 x10(3)/mc L [facility] Eos % 2.4 % [facility] Eosinophils Abs 0.3 0.0 - 0.4 x10(3)/mc L [facility] Basophil % 0.3 % [facility] Baso Absolute 0.0 0.0 - 0.1 x10(3)/mc L [facility] Immature Gran % 2.30 % [facility] Comment: Immature granulocytes(IG's)percentage and absolute count will include metamyelocytes, myelocytes, and promyelocytes. Blood smears from CBCs yielding IG's will be scanned manually for concordance. If this scan disagrees with the automated IG or if promyelocytes are noted, a manual differential will be performed. Immature Gran Absolute 0.28(H) 0.00 - 0.04 x10(3)/mc L [facility] Blood specimen (specimen) 07/22/2017 3:10 AM EDT 07/22/2017 3:15 AM EDT Narrative Resulting Agency Comment Spec In Lab Sriram Contreras MD HEMATOLOGY ORDERAB LES [facility] [place] [address] * (ABNORMAL) Hemogram (07/22/2017 3:10 AM EDT) White Blood Cell 12.2(H) 4.0 - 9.5 x10(3)/mc L [facility] Red Blood Cell 4.05(L) 4.58 - 5.54 x10(6)/mc L [facility] Hemoglobin 12.5(L) 13.7 - 16.5 gm/dL [facility] Hematocrit 37.9(L) 40.5 - 48.5 % [facility] Mean Cell Volume 93.6(H) 82.9 - 93.1 fL [facility] Mean Cell Hemoglobin 30.9 27.5 - 32.1 pg [facility] Mean Cell Hemoglobin Concentration 33.0 32.0 - 35.7 gm/dL [facility] Platelet 168 145 - 357 x10(3)/mc L [facility] RDW Standard Deviation 48.9(H) 36.0 - 45.0 fL [facility] RDW coefficient of variation 14.1(H) 11.4 - 13.8 % [facility] Mean Platelet Volume 10.2 7.6 - 12.9 fL [facility] NRBC% auto 0.0 % [facility] NRBC Absolute 0.000 0.000 - 0.000 x10(3)/mc L [facility] Blood specimen (specimen) 07/22/2017 3:10 AM EDT 07/22/2017 3:15 AM EDT Narrative Resulting Agency Comment Spec In Lab Sriram Contreras MD HEMATOLOGY ORDERAB LES Performing Organization Address [facility] Co de Phone Number [facility] [place] [address] * (ABNORMAL) APTT (07/22/2017 3:10 AM EDT) Partial Thromboplastin Time 89(H) 25 - 35 sec [facility] Comment: The recommended therapeutic range for full dose, unfractionated heparin at [facility] is 80 ? 114 seconds. The use of the anti-Xa (heparin) level rather than the PTT is recommended for monitoring anticoagulation intensity in critically ill patients receiving unfractionated heparin by continuous IV infusion. Blood specimen (specimen) 07/22/2017 3:10 AM EDT 07/22/2017 3:15 AM EDT Narrative Resulting Agency Comment Spec In Lab Sriram Contreras MD HEMATOLOGY ORDERAB LES Performing Organization Address [facility] de Phone Number [facility] [place] [address] * (ABNORMAL) Basic Metabolic Panel (non-fasting) (07/22/2017 3:10 AM EDT) Glucose 121 65 - 199 mg/dL [facility] Comment:Diabetes: >=200 mg/d L plus symptoms Blood Urea Nitrogen 23(H) 10 - 20 mg/dL [facility] Creatinine 0.76(L) 0.80 - 1.50 mg/dL [facility] Comment: Please note that the pediatric reference intervals supplied above were not validated at [facility]. Results from pediatric patients should be interpreted [...] 107 mmol/L [facility] Carbon Dioxide 25 22 - 31 mmol/L [facility] Anion Gap 13 5 - 15 mmol/L [facility] Calcium 8.3(L) 8.5 - 10.5 mg/dL [facility] Est Glomerular Filtration Rate >60 [...] the following links into your internet browser. [email or web address] Blood specimen (specimen) 07/22/2017 3:10 AM EDT 07/22/2017 3:15 AM EDT Narrative Resulting Agency Comment Spec In Lab Sriram Contreras MD CHEMISTRY ORDERABL ES [facility] [place] [address] * POCT Glucose (07/22/2017 3:08 AM EDT) Glucose, POC 109 65 - 199 mg/dL [facility] Comment: Supplemental ranges: <140 mg/dL before meals <180 mg/dL all other times of the day Blood specimen (specimen) 07/22/2017 3:08 AM EDT 07/22/2017 3:08 AM EDT Sriram Contreras MD POINT OF CARE TEST ORDERABLES Performing Organization Address City/[facility]/ZIP Co de Phone Number [facility] [place] [address] * POCT Glucose (07/21/2017 11:52 PM EDT) Glucose, POC 135 65 - 199 mg/dL [facility] Comment: Supplemental ranges: <140 mg/dL before meals <180 mg/dL all other times of the day Blood specimen (specimen) 07/21/2017 11:52 PM EDT 07/21/2017 11:52 PM EDT Sriram Contreras MD POINT OF CARE TEST ORDERABLES Performing Organization Address [facility] Co de Phone Number [facility] [place] [address] * EKG 12 Lead (07/21/2017 10:42 PM EDT) Ventricular rate 75 BPM MUSE SYSTEM Atrial Rate 258 BPM MUSE SYSTEM QRS Duration 86 ms MUSE SYSTEM Q-T Interval 400 ms MUSE SYSTEM QTC Calculated (Bezet) 446 ms MUSE SYSTEM Calculated R [place] 61 degrees MUSE SYSTEM Calculated T [place] 136 degrees MUSE SYSTEM INTERPRETATION Atrial fibrillation [...] Contreras MD ECG ORDERABLES Performing Organization Address City/[facility] Co de Phone Number MUSE SYSTEM * Magnesium (07/21/2017 10:35 PM EDT) Magnesium 0.80 0.69 - 1.07 mmol/L [facility] Blood specimen (specimen) 07/21/2017 10:35 PM EDT 07/21/2017 10:40 PM EDT Narrative Resulting Agency Comment Spec In Lab Sriram Contreras MD CHEMISTRY ORDERABL ES [facility] [place] [address] * (ABNORMAL) Basic Metabolic Panel (non-fasting) (07/21/2017 10:35 PM EDT) Glucose 135 65 - 199 mg/dL [facility] Comment:Diabetes: >=200 mg/d L plus symptoms Blood Urea Nitrogen 23(H) 10 - 20 mg/dL [facility] Creatinine 0.88 0.80 - 1.50 mg/dL [facility] Comment: Please note that the pediatric reference intervals supplied above were not validated at [facility]. Results from pediatric patients should be interpreted [...] 107 mmol/L [facility] Carbon Dioxide 25 22 - 31 mmol/L [facility] Anion Gap 12 5 - 15 mmol/L [facility] Calcium 8.7 8.5 - 10.5 mg/dL [facility] Est Glomerular Filtration Rate >60 [...] the following links into your internet browser. [email or web address] Blood specimen (specimen) 07/21/2017 10:35 PM EDT 07/21/2017 10:40 PM EDT Narrative Resulting Agency Comment Spec In Lab Sriram Contreras MD CHEMISTRY ORDERABL ES Performing Organization Address [facility] Phone Number [facility] [place] [address] * (ABNORMAL) APTT (07/21/2017 9:10 PM EDT) [facility] Partial Thromboplastin Time 87(H) 25 - 35 sec [facility] Comment: The recommended therapeutic range for full dose, unfractionated heparin at [facility] is 80 ? 114 seconds. The use of the anti-Xa (heparin) level rather than the PTT is recommended for monitoring anticoagulation intensity in critically ill patients receiving unfractionated heparin by continuous IV infusion. Blood specimen (specimen) 07/21/2017 9:10 PM EDT 07/21/2017 9:17 PM EDT Narrative Resulting Agency Comment Spec In Lab Sriram Contreras MD HEMATOLOGY ORDERAB LES Performing Organization Address [facility] Phone Number [facility] [place] [address] * POCT Glucose (07/21/2017 7:49 PM EDT) Pathologist [facility] Glucose, POC 117 65 - 199 mg/dL [facility] Comment: Supplemental ranges: <140 mg/dL before meals <180 mg/dL all other times of the day Blood specimen (specimen) 07/21/2017 7:49 PM EDT 07/21/2017 7:49 PM EDT Sriram Contreras MD POINT OF CARE TEST ORDERABLES Performing Organization Address [facility] Phone Number [facility] [place] [address] * POCT Glucose (07/21/2017 4:10 PM EDT) Glucose, POC 116 65 - 199 mg/dL [facility] Comment: Supplemental ranges: <140 mg/dL before meals <180 mg/dL all other times of the day Blood specimen (specimen) 07/21/2017 4:10 PM EDT 07/21/2017 4:10 PM EDT Sriram Contreras MD POINT OF CARE TEST ORDERABLES Performing Organization Address [facility] de Phone Number [facility] [place] [address] * (ABNORMAL) APTT (07/21/2017 4:10 PM EDT) Partial Thromboplastin Time 78(H) 25 - 35 sec [facility] Comment: The recommended therapeutic range for full dose, unfractionated heparin at [facility] is 80 ? 114 seconds. The use of the anti-Xa (heparin) level rather than the PTT is recommended for monitoring anticoagulation intensity in critically ill patients receiving unfractionated heparin by continuous IV infusion. Blood specimen (specimen) 07/21/2017 4:10 PM EDT 07/21/2017 4:28 PM EDT Narrative Resulting Agency Comment Spec In Lab Sriram Contreras MD HEMATOLOGY ORDERAB LES Performing Organization Address [facility] Co de Phone Number [facility] [place] [address] * POCT Glucose (07/21/2017 12:04 PM EDT) Glucose, POC 138 65 - 199 mg/dL [facility] Comment: Supplemental ranges: <140 mg/dL before meals <180 mg/dL all other times of the day Blood specimen (specimen) 07/21/2017 12:04 PM EDT 07/21/2017 12:04 PM EDT Sriram Contreras MD POINT OF CARE TEST ORDERABLES Performing Organization Address [facility] Co de Phone Number [facility] [place] [address] * C. Difficile Screen (07/21/2017 9:00 AM EDT) Pathologist [facility] C Diff Interp Negative Negative [facility] Comment: C. diff ??Negative Clostridium [...] - GEN ERAL ORDERABLES Performing Organization Address [facility] de Phone Number [facility] [place] [address] * Potassium (07/21/2017 8:30 AM EDT) [facility] Potassium 3.8 3.5 - 5.0 mmol/L [facility] [...] MD CHEMISTRY ORDERABL ES Performing Organization Address [facility] Co de Phone Number [facility] [place] [address] * (ABNORMAL) APTT (07/21/2017 8:30 AM EDT) Pathologist [facility] Partial Thromboplastin Time 63(H) 25 - 35 sec [facility] Comment: The recommended therapeutic range for full dose, unfractionated heparin at [facility] is 80 ? 114 seconds. The use of the anti-Xa (heparin) level rather than the PTT is recommended for monitoring anticoagulation intensity in critically ill patients receiving unfractionated heparin by continuous IV infusion. Blood specimen (specimen) 07/21/2017 8:30 AM EDT 07/21/2017 8:40 AM EDT Narrative Resulting Agency Comment Spec In Lab Sriram Contreras MD HEMATOLOGY ORDERAB LES Performing Organization Address [facility] Co de Phone Number [facility] [place] [address] * POCT Glucose (07/21/2017 8:24 AM EDT) [facility] Glucose, POC 131 65 - 199 mg/dL [facility] Comment: Supplemental ranges: <140 mg/dL before meals <180 mg/dL all other times of the day Blood specimen (specimen) 07/21/2017 8:24 AM EDT 07/21/2017 8:24 AM EDT Sriram Contreras MD POINT OF CARE TEST ORDERABLES Performing Organization Address [facility] Co de Phone Number [facility] [place] [address] * (ABNORMAL) BLOOD GAS 2 ARTERIAL (07/21/2017 7:42 AM EDT) [facility] pH, Arterial 7.44 7.35 - 7.45 [facility] PCO2, Arterial 37 35 - 45 mmHg [facility] PO2, Arterial 72(L) 85 - 104 mmHg [facility] Bicarbonate, Arterial 24.5 20.0 - 26.0 mmol/L [facility] Base Excess, Arterial 0.3 -3.0 - 3.0 mmol/L [facility] Hgb Blood Gas 14.0 13.7 - 16.5 gm/dL [facility] Oxyhemoglobin, Arterial 93.8(L) 94.0 - 97.0 % [facility] Carboxyhemoglob in, Arterial 0.3 % [facility] Comment: Nonsmokers: 0.5-1.5% COHB Smokers: Variable, but usually less than 10% Toxic: 20-30% COHB Lethal: Greater than 60% COHB Methemoglobin, Arterial 0.5 <=1.5 % [facility] Na Whole Blood 143 135 [...] [facility] FIO2 Art 40 % [facility] PF Ratio Art 180 [facility] Blood specimen (specimen) 07/21/2017 7:42 AM EDT 07/21/2017 7:42 AM EDT Sriram Contreras MD POINT OF CARE TEST ORDERABLES [facility] [place] [address] * POCT Glucose (07/21/2017 3:21 AM EDT) Glucose, POC 116 65 - 199 mg/dL [facility] Comment: Supplemental ranges: <140 mg/dL before meals <180 mg/dL all other times of the day Blood specimen (specimen) 07/21/2017 3:21 AM EDT 07/21/2017 3:21 AM EDT Sriram Contreras MD POINT OF CARE TEST ORDERABLES Performing Organization Address [facility] Co de Phone Number [facility] [place] [address] * Potassium (07/21/2017 3:20 AM EDT) Pathologist [facility] Potassium 4.0 3.5 - 5.0 mmol/L [facility] [...] MD CHEMISTRY ORDERABL ES Performing Organization Address [facility] de Phone Number [facility] [place] [address] * (ABNORMAL) APTT (07/21/2017 1:05 AM EDT) Partial Thromboplastin Time 42(H) 25 - 35 sec [facility] Comment: The recommended therapeutic range for full dose, unfractionated heparin at [facility] is 80 ? 114 seconds. The use of the anti-Xa (heparin) level rather than the PTT is recommended for monitoring anticoagulation intensity in critically ill patients receiving unfractionated heparin by continuous IV infusion. Blood specimen (specimen) 07/21/2017 1:05 AM EDT 07/21/2017 1:08 AM EDT Narrative Resulting Agency Comment Spec In Lab Sriram Contreras MD HEMATOLOGY ORDERAB LES Performing Organization Address [facility] Co de Phone Number [facility] [place] [address] * (ABNORMAL) Differential, Automated (07/21/2017 12:25 AM EDT) Neutrophil % 75.8 % [facility] Neutrophil Absolute 7.59(H) 1.70 - 6.10 x10(3)/ L [facility] Lymph % 12.8 % [facility] Lymphocytes Abs 1.3 0.9 - 3.2 x10(3)/ L [facility] Monocyte % 9.0 % [facility] Monocyte Abs 0.9 0.3 - 0.9 x10(3)/[facility] Eos % 1.1 % [facility] Eosinophils Abs 0.1 0.0 - 0.4 x10(3)/[facility] Basophil % 0.3 % [facility] Baso Absolute 0.0 0.0 - 0.1 x10(3)/[facility] Immature Gran % 1.00 % [facility] Comment: Immature granulocytes(IG's)percentage and absolute count will include metamyelocytes, myelocytes, and promyelocytes. Blood smears from CBCs yielding IG's will be scanned manually for concordance. If this scan disagrees with the automated IG or if promyelocytes are noted, a manual differential will be performed. Immature Gran Absolute 0.10(H) 0.00 - 0.04 x10(3)/[facility] Blood specimen (specimen) 07/21/2017 12:25 AM EDT 07/21/2017 12:48 AM EDT Narrative Resulting Agency Comment Spec In Lab Sriram Contreras MD HEMATOLOGY ORDERAB LES [facility] [place] [address] * (ABNORMAL) Hemogram (07/21/2017 12:25 AM EDT) White Blood Cell 10.0(H) 4.0 - 9.5 x10(3)/mc L [facility] Red Blood Cell 4.24(L) 4.58 - 5.54 x10(6)/mc L [facility] Hemoglobin 13.2(L) 13.7 - 16.5 gm/dL [facility] Hematocrit 39.4(L) 40.5 - 48.5 % [facility] Mean Cell Volume 92.9 82.9 - 93.1 fL [facility] Mean Cell Hemoglobin 31.1 27.5 - 32.1 pg [facility] Mean Cell Hemoglobin Concentration 33.5 32.0 - 35.7 gm/dL [facility] Platelet 163 145 - 357 x10(3)/[facility] RDW Standard Deviation 48.0(H) 36.0 - 45.0 [facility] RDW coefficient of variation 14.1(H) 11.4 - 13.8 % [facility] Mean Platelet Volume 10.2 7.6 - 12.9 [facility] NRBC% auto 0.0 % [facility] NRBC Absolute 0.000 0.000 - 0.000 x10(3)/[facility] Blood specimen (specimen) 07/21/2017 12:25 AM EDT 07/21/2017 12:48 AM EDT Narrative Resulting Agency Comment Spec In Lab Sriram Contreras MD HEMATOLOGY ORDERAB LES [facility] [place] [address] * (ABNORMAL) Basic Metabolic Panel (non-fasting) (07/21/2017 12:25 AM EDT) Glucose 132 65 - 199 mg/dL [facility] Comment:Diabetes: >=200 mg/d L plus symptoms Blood Urea Nitrogen 22(H) 10 - 20 mg/dL [facility] Creatinine 0.79(L) 0.80 - 1.50 mg/dL [facility] Comment: Please note that the pediatric reference intervals supplied above were not validated at [facility]. Results from pediatric patients should be interpreted [...] 107 mmol/L [facility] Carbon Dioxide 25 22 - 31 mmol/L [facility] Anion Gap 11 5 - 15 mmol/L [facility] Calcium 8.5 8.5 - 10.5 mg/dL [facility] Est Glomerular Filtration Rate >60 [...] the following links into your internet browser. [email or web address] Blood specimen (specimen) 07/21/2017 12:25 AM EDT 07/21/2017 12:48 AM EDT Narrative Resulting Agency Comment Spec In Lab Sriram Contreras MD CHEMISTRY ORDERABL ES [facility] [place] [address] * (ABNORMAL) BLOOD GAS 2 ARTERIAL (07/21/2017 12:21 AM EDT) pH, Arterial 7.44 7.35 - 7.45 [facility] PCO2, Arterial 37 35 - 45 mmHg [facility] PO2, Arterial 70(L) 85 - 104 mmHg [facility] Bicarbonate, Arterial 24.1 20.0 - 26.0 mmol/L [facility] Base Excess, Arterial 0.1 -3.0 - 3.0 mmol/L [facility] Hgb Blood Gas 14.3 13.7 - 16.5 gm/dL [facility] Oxyhemoglobin, Arterial 92.8(L) 94.0 - 97.0 % [facility] Carboxyhemoglob in, Arterial 0.0 % [facility] Comment: Nonsmokers: 0.5-1.5% COHB Smokers: Variable, but usually less than 10% Toxic: 20-30% COHB Lethal: Greater than 60% COHB Methemoglobin, Arterial 0.4 <=1.5 % [facility] Na Whole Blood 145 135 [...] [facility] FIO2 Art 40 % [facility] PF Ratio Art 175 [facility] Temp Art 37.8 Celsius [facility] Blood specimen (specimen) 07/21/2017 12:21 AM EDT 07/21/2017 12:21 AM EDT Sriram Contreras MD POINT OF CARE TEST ORDERABLES Performing Organization Address [facility] de Phone Number [facility] [place] [address] * POCT Glucose (07/21/2017 12:00 AM EDT) [facility] Glucose, POC 119 65 - 199 mg/dL [facility] Comment: Supplemental ranges: <140 mg/dL before meals <180 mg/dL all other times of the day Blood specimen (specimen) 07/21/2017 07/21/2017 Sriram Contreras MD POINT OF CARE TEST ORDERABLES Performing Organization Address [facility] de Phone Number [facility] [place] [address] * Potassium (07/20/2017 9:50 PM EDT) [facility] Potassium 4.1 3.5 - 5.0 mmol/L [place] [...] MD CHEMISTRY ORDERABL ES Performing Organization Address [facility] Co de Phone Number [facility] [place] [address] * EKG 12 Lead (07/20/2017 8:40 PM EDT) [facility] [place] Ventricular rate 77 BPM MUSE SYSTEM Atrial Rate 394 BPM MUSE SYSTEM QRS Duration 86 ms MUSE SYSTEM Q-T Interval 396 ms MUSE SYSTEM QTC Calculated (Bezet) 448 ms MUSE SYSTEM Calculated R [place] 73 degrees MUSE SYSTEM Calculated T [place] 127 degrees MUSE SYSTEM INTERPRETATION Atrial fibrillation [...] * POCT Glucose (07/20/2017 7:28 PM EDT) [facility] Glucose, POC 126 65 - 199 mg/dL [facility] Comment: Supplemental ranges: <140 mg/dL before meals <180 mg/dL all other times of the day Blood specimen (specimen) 07/20/2017 7:28 PM EDT 07/20/2017 7:28 PM EDT Sriram Contreras MD POINT OF CARE TEST ORDERABLES Performing Organization Address City/[facility] Co de Phone Number [facility] [place] [address] * (ABNORMAL) Differential, Automated (07/20/2017 5:15 PM EDT) [facility] Neutrophil % 79.7 % [facility] Neutrophil Absolute 8.01(H) 1.70 - 6.10 x10(3)/mc L [facility] Lymph % 10.4 % [facility] Lymphocytes Abs 1.0 0.9 - 3.2 x10(3)/mc L [facility] Monocyte % 8.0 % [facility] Monocyte Abs 0.8 0.3 - 0.9 x10(3)/mc L [facility] Eos % 0.7 % [facility] Eosinophils Abs 0.1 0.0 - 0.4 x10(3)/mc L [facility] Basophil % 0.2 % [facility] Baso Absolute 0.0 0.0 - 0.1 x10(3)/ L [facility] Immature [...] Absolute 0.10(H) 0.00 - 0.04 x10(3)/ L [facility] Blood specimen (specimen) 07/20/2017 5:15 PM EDT 07/20/2017 5:26 PM EDT Narrative Resulting Agency Comment Spec In Lab Sriram Contreras MD HEMATOLOGY ORDERAB LES Performing Organization Address City/State/[facility] Co de Phone Number [facility] [place] [address] * (ABNORMAL) Hemogram (07/20/2017 5:15 PM EDT) White Blood Cell 10.0(H) 4.0 - 9.5 x10(3)/ L [facility] Red Blood Cell 4.28(L) 4.58 - 5.54 x10(6)/ L [facility] Hemoglobin 13.3(L) 13.7 - 16.5 gm/dL [facility] Hematocrit 39.9(L) 40.5 - 48.5 % [facility] Mean Cell Volume 93.2(H) 82.9 - 93.1 fL [facility] Mean Cell Hemoglobin 31.1 27.5 - 32.1 pg [facility] Mean Cell Hemoglobin Concentration 33.3 32.0 - 35.7 gm/dL [facility] Platelet 163 145 - 357 x10(3)/ L [facility] RDW Standard Deviation 47.7(H) 36.0 - 45.0 [facility] RDW coefficient of variation 14.1(H) 11.4 - 13.8 % [facility] Mean Platelet Volume 10.1 7.6 - 12.9 fL [facility] NRBC% auto 0.0 % [facility] NRBC Absolute 0.000 0.000 - 0.000 x10(3)/mc L [facility] Blood specimen (specimen) 07/20/2017 5:15 PM EDT 07/20/2017 5:26 PM EDT Narrative Resulting Agency Comment Spec In Lab Sriram Contreras MD HEMATOLOGY ORDERAB LES Performing Organization Address [facility] de Phone Number [facility] [place] [address] * APTT (07/20/2017 5:15 PM EDT) Partial Thromboplastin Time 28 25 - 35 sec [facility] Comment: The recommended therapeutic range for full dose, unfractionated heparin at [facility] is 80 ? 114 seconds. The use of the anti-Xa (heparin) level rather than the PTT is recommended for monitoring anticoagulation intensity in critically ill patients receiving unfractionated heparin by continuous IV infusion. Blood specimen (specimen) 07/20/2017 5:15 PM EDT 07/20/2017 5:26 PM EDT Narrative Resulting Agency Comment Spec In Lab Sriram Contreras MD HEMATOLOGY ORDERAB LES Performing Organization Address [facility] Co de Phone Number [facility] [place] [address] * Magnesium (07/20/2017 4:50 PM EDT) Magnesium 1.00 0.69 - 1.07 mmol/L [facility] Blood specimen (specimen) 07/20/2017 4:50 PM EDT 07/20/2017 5:10 PM EDT Narrative Resulting Agency Comment Spec In Lab Sylvia Vaughn MD CHEMISTRY ORDERABLES [facility] [place] [address] * (ABNORMAL) Basic Metabolic Panel (non-fasting) (07/20/2017 4:50 PM EDT) Glucose 143 65 - 199 mg/dL [facility] Comment:Diabetes: >=200 mg/d L plus symptoms Blood Urea Nitrogen 23(H) 10 - 20 mg/dL [facility] Creatinine 0.85 0.80 - 1.50 mg/dL [facility] Comment: Please note that the pediatric reference intervals supplied above were not validated at [facility]. Results from pediatric patients should be interpreted [...] 107 mmol/L [facility] Carbon Dioxide 25 22 - 31 mmol/L [facility] Anion Gap 11 5 - 15 mmol/L [facility] Calcium 8.5 8.5 - 10.5 mg/dL [facility] Est Glomerular Filtration Rate >60 [...] the following links into your internet browser. [email or web address] Blood specimen (specimen) 07/20/2017 4:50 PM EDT 07/20/2017 5:10 PM EDT Narrative Resulting Agency Comment Spec In Lab Sylvia Vaughn MD CHEMISTRY ORDERABLES Performing Organization Address City/[facility]/ZIP Co de Phone Number [facility] [place] [address] * POCT Glucose (07/20/2017 3:41 PM EDT) Glucose, POC 138 65 - 199 mg/dL [facility] Comment: Supplemental ranges: <140 mg/dL before meals <180 mg/dL all other times of the day Blood specimen (specimen) 07/20/2017 3:41 PM EDT 07/20/2017 3:41 PM EDT Sriram Contreras MD POINT OF CARE TEST ORDERABLES Performing Organization Address [facility] Co de Phone Number [facility] [place] [address] * CTA Chest for Pulmonary Embolus w [...] Contreras MD MICROBIOLOGY - GEN ERAL ORDERABLES [facility] [place] [address] * POCT Glucose (07/20/2017 11:45 AM EDT) Glucose, POC 125 65 - 199 mg/dL [facility] Comment: Supplemental ranges: <140 mg/dL before meals <180 mg/dL all other times of the day Blood specimen (specimen) 07/20/2017 11:45 AM EDT 07/20/2017 11:45 AM EDT Sriram Contreras MD POINT OF CARE TEST ORDERABLES Performing Organization Address City/State/[facility] Co de Phone Number [facility] [place] [address] * (ABNORMAL) BLOOD GAS 2 ARTERIAL (07/20/2017 11:43 AM EDT) pH, Arterial 7.45 7.35 - 7.45 [facility] PCO2, Arterial 35 35 - 45 mmHg [facility] PO2, Arterial 57(L) 85 - 104 mmHg [facility] Bicarbonate, Arterial 23.9 20.0 - 26.0 mmol/L [facility] Base Excess, Arterial 0.1 -3.0 - 3.0 mmol/L [facility] Hgb Blood Gas 14.6 13.7 - 16.5 gm/dL [facility] Oxyhemoglobin, Arterial 89.5(L) 94.0 - 97.0 % [facility] Carboxyhemoglob in, Arterial 0.0 % [facility] Comment: Nonsmokers: 0.5-1.5% COHB Smokers: Variable, but usually less than 10% Toxic: 20-30% COHB Lethal: Greater than 60% COHB Methemoglobin, Arterial 0.5 <=1.5 % [facility] Na Whole Blood 145 135 [...] [facility] FIO2 Art 35 % [facility] PF Ratio Art 163 [facility] Temp Art 37.6 Celsius [facility] Blood specimen (specimen) 07/20/2017 11:43 AM EDT 07/20/2017 11:43 AM EDT Sriram Contreras MD POINT OF CARE TEST ORDERABLES Performing Organization Address [facility] [place] [address] * Potassium (07/20/2017 10:15 AM EDT) Potassium [...] MD CHEMISTRY ORDERABL ES Performing Organization Address [facility] Co de Phone Number [facility] [place] [address] * XR Chest PA or AP 1 [...] hypoxic respiratory failure Location of Procedure: ICU [facility]. Risks and Benefits: The risks and benefits [...] Glucose, POC 134 65 - 199 mg/dL [facility] Comment: Supplemental ranges: <140 mg/dL before meals <180 mg/dL all other times of the day Blood specimen (specimen) 07/20/2017 7:29 AM EDT 07/20/2017 7:29 AM EDT Sriram Contreras MD POINT OF CARE TEST ORDERABLES [facility] [place] [address] * Potassium (07/20/2017 7:28 AM EDT) Pathologist [facility] Potassium 4.0 3.5 - 5.0 mmol/L [place] [...] ORDERABL ES [facility] [place] [address] * (ABNORMAL) Differential, Automated (07/20/2017 3:15 AM EDT) Pathologist [facility] Neutrophil % 83.6 % [facility] Neutrophil Absolute 8.93(H) 1.70 - 6.10 x10(3)/mc L [facility] Lymph % 9.1 % [facility] Lymphocytes Abs 1.0 0.9 - 3.2 x10(3)/mc L [facility] Monocyte % 6.3 % [facility] Monocyte Abs 0.7 0.3 - 0.9 x10(3)/mc L [facility] Eos % 0.1 % [facility] Eosinophils Abs 0.0 0.0 - 0.4 x10(3)/mc L [facility] Basophil % 0.2 % [facility] Baso Absolute 0.0 0.0 - 0.1 x10(3)/mc L [facility] [...] Absolute 0.07(H) 0.00 - 0.04 x10(3)/ L [facility] Blood specimen (specimen) 07/20/2017 3:15 AM EDT 07/20/2017 3:58 AM EDT Narrative Resulting Agency Comment Spec In Lab Sriram Contreras MD HEMATOLOGY ORDERAB LES Performing Organization Address City/State/[facility] Co de Phone Number [facility] [place] [address] * (ABNORMAL) Hemogram (07/20/2017 3:15 AM EDT) White Blood Cell 10.7(H) 4.0 - 9.5 x10(3)/[facility] Red Blood Cell 4.40(L) 4.58 - 5.54 x10(6)/[facility] Hemoglobin 13.7 13.7 - 16.5 gm/dL [facility] Hematocrit 39.6(L) 40.5 - 48.5 % [facility] Mean Cell Volume 90.0 82.9 - 93.1 [facility] Mean Cell Hemoglobin 31.1 27.5 - 32.1 pg [facility] Mean Cell Hemoglobin Concentration 34.6 32.0 - 35.7 gm/dL [facility] Platelet 186 145 - 357 x10(3)/[facility] RDW Standard Deviation 45.8(H) 36.0 - 45.0 [facility] RDW coefficient of variation 13.9(H) 11.4 - 13.8 % [facility] Mean Platelet Volume 9.9 7.6 - 12.9 [facility] NRBC% auto 0.0 % [facility] NRBC Absolute 0.000 0.000 - 0.000 x10(3)/ L [facility] Blood specimen (specimen) 07/20/2017 3:15 AM EDT 07/20/2017 3:58 AM EDT Narrative Resulting Agency Comment Spec In Lab Sriram Contreras MD HEMATOLOGY ORDERAB LES [facility] [place] [address] * (ABNORMAL) Basic Metabolic Panel (non-fasting) (07/20/2017 3:15 AM EDT) Glucose 126 65 - 199 mg/dL [facility] Comment:Diabetes: >=200 mg/d L plus symptoms Blood Urea Nitrogen 23(H) 10 - 20 mg/dL [facility] Creatinine 0.97 0.80 - 1.50 mg/dL [facility] Comment: Please note that the pediatric reference intervals supplied above were not validated at [facility]. Results from pediatric patients should be interpreted [...] 107 mmol/L [facility] Carbon Dioxide 23 22 - 31 mmol/L [facility] Anion Gap 14 5 - 15 mmol/L [facility] Calcium 8.5 8.5 - 10.5 mg/dL [facility] Est Glomerular Filtration Rate >60 [...] the following links into your internet browser. [email or web address] Blood specimen (specimen) 07/20/2017 3:15 AM EDT 07/20/2017 3:58 AM EDT Narrative Resulting Agency Comment Spec In Lab Sriram Contreras MD CHEMISTRY ORDERABL ES Performing Organization Address [facility] de Phone Number [facility] [place] [address] * POCT Glucose (07/20/2017 3:13 AM EDT) Pathologist [facility] Glucose, POC 114 65 - 199 mg/dL [facility] Comment: Supplemental ranges: <140 mg/dL before meals <180 mg/dL all other times of the day Blood specimen (specimen) 07/20/2017 3:13 AM EDT 07/20/2017 3:13 AM EDT Sriram Contreras MD POINT OF CARE TEST ORDERABLES Performing Organization Address [facility] Phone Number [facility] [place] [address] * (ABNORMAL) BLOOD GAS 2 ARTERIAL (07/19/2017 11:36 PM EDT) pH, Arterial 7.51(H) 7.35 - 7.45 [facility] PCO2, Arterial 29(L) 35 - 45 mmHg [facility] PO2, Arterial 77(L) 85 - 104 mmHg [facility] Bicarbonate, Arterial 22.2 20.0 - 26.0 mmol/L [facility] Base Excess, Arterial -0.8 -3.0 - 3.0 mmol/L [facility] Hgb Blood Gas 14.7 13.7 - 16.5 gm/dL [facility] Oxyhemoglobin, Arterial 94.7 94.0 - 97.0 % [facility] Carboxyhemoglob in, Arterial 0.3 % [facility] Comment: Nonsmokers: 0.5-1.5% COHB Smokers: Variable, but usually less than 10% Toxic: 20-30% COHB Lethal: Greater than 60% COHB Methemoglobin, Arterial 0.7 <=1.5 % [facility] Na Whole Blood 142 135 [...] [facility] FIO2 Art 50 % [facility] PF Ratio Art 154 [facility] Blood specimen (specimen) 07/19/2017 11:36 PM EDT 07/19/2017 11:36 PM EDT Sriram Contreras MD POINT OF CARE TEST ORDERABLES [facility] [place] [address] * POCT Glucose (07/19/2017 11:31 PM EDT) Glucose, POC 110 65 - 199 mg/dL [facility] Comment: Supplemental ranges: <140 mg/dL before meals <180 mg/dL all other times of the day Blood specimen (specimen) 07/19/2017 11:31 PM EDT 07/19/2017 11:31 PM EDT Sriram Contreras MD POINT OF CARE TEST ORDERABLES Performing Organization Address [facility] Co de Phone Number [facility] [place] [address] * Potassium (07/19/2017 11:30 PM EDT) Potassium [...] MD CHEMISTRY ORDERABL ES Performing Organization Address [facility] Co de Phone Number [facility] [place] [address] * POCT Glucose (07/19/2017 7:45 PM EDT) Glucose, POC 100 65 - 199 mg/dL [facility] Comment: Supplemental ranges: <140 mg/dL before meals <180 mg/dL all other times of the day Blood specimen (specimen) 07/19/2017 7:45 PM EDT 07/19/2017 7:45 PM EDT Sriram Contreras MD POINT OF CARE TEST ORDERABLES Performing Organization Address [facility]/ZIP Co de Phone Number [facility] [place] [address] * Blood culture (07/19/2017 7:00 PM EDT) Blood Culture No growth at 5 days. [facility] Blood specimen (specimen) STRUCTURE OF LEFT WRIST REGION / Unknown 07/19/2017 7:00 PM EDT 07/19/2017 7:50 PM EDT Narrative Resulting Agency Comment Spec In Lab Sriram Contreras MD MICROBIOLOGY - BLO OD ORDERABLES Performing Organization Address City/[facility]/ZIP Co de Phone Number [facility] [place] [address] * Blood culture (07/19/2017 6:50 PM EDT) Blood Culture No growth at 5 days. [facility] Blood specimen (specimen) STRUCTURE OF RIGHT WRIST REGION / Unknown 07/19/2017 6:50 PM EDT 07/19/2017 7:51 PM EDT Narrative Resulting Agency Comment Spec In Lab Sriram Contreras MD MICROBIOLOGY - BLO OD ORDERABLES Performing Organization Address [facility] Co de Phone Number [facility] [place] [address] * XR Chest PA or AP 1 [...] EDT) pH, Arterial 7.49(H) 7.35 - 7.45 [facility] PCO2, Arterial 32(L) 35 - 45 mmHg [facility] PO2, Arterial 66(L) 85 - 104 mmHg [facility] Bicarbonate, Arterial 23.2 20.0 - 26.0 mmol/L [facility] Base Excess, Arterial -0.2 -3.0 - 3.0 mmol/L [facility] Hgb Blood Gas 15.5 13.7 - 16.5 gm/dL [facility] Oxyhemoglobin, Arterial 93.1(L) 94.0 - 97.0 % [facility] Carboxyhemoglob in, Arterial 0.4 % [facility] Comment: Nonsmokers: 0.5-1.5% COHB Smokers: Variable, but usually less than 10% Toxic: 20-30% COHB Lethal: Greater than 60% COHB Methemoglobin, Arterial 0.6 <=1.5 % [facility] Na Whole Blood 158(H) 135 [...] [facility] FIO2 Art 100 % [facility] PF Ratio Art 66 [facility] Blood specimen (specimen) 07/19/2017 5:12 PM EDT 07/19/2017 5:12 PM EDT Sriram Contreras MD POINT OF CARE TEST ORDERABLES Performing Organization Address [facility] Co de Phone Number [facility] [place] [address] * EKG 12 Lead (07/19/2017 4:55 PM EDT) Ventricular rate 85 BPM MUSE SYSTEM Atrial Rate 326 BPM MUSE SYSTEM QRS Duration 92 ms MUSE SYSTEM Q-T Interval 388 ms MUSE SYSTEM QTC Calculated (Bezet) 461 ms MUSE SYSTEM Calculated R [place] 65 degrees MUSE SYSTEM Calculated T [place] 4 degrees MUSE SYSTEM INTERPRETATION Atrial fibrillation [...] Contreras MD ECG ORDERABLES Performing Organization Address [facility] Co de Phone Number MUSE SYSTEM * Phosphorus (07/19/2017 4:50 PM EDT) Phosphorus 3.0 2.5 - 4.5 mg/dL [facility] Blood specimen (specimen) 07/19/2017 4:50 PM EDT 07/19/2017 5:05 PM EDT Narrative Resulting Agency Comment Spec In Lab Sriram Contreras MD CHEMISTRY ORDERABL ES Performing Organization Address City/[facility]/ZIP Co de Phone Number [facility] [place] [address] * (ABNORMAL) Basic Metabolic Panel (non-fasting) (07/19/2017 4:50 PM EDT) Glucose 118 65 - 199 mg/dL [facility] Comment:Diabetes: >=200 mg/d L plus symptoms Blood Urea Nitrogen 19 10 - 20 mg/dL [facility] Creatinine 0.79(L) 0.80 - 1.50 mg/dL [facility] Comment: Please note that the pediatric reference intervals supplied above were not validated at [facility]. Results from pediatric patients should be interpreted [...] 107 mmol/L [facility] Carbon Dioxide 23 22 - 31 mmol/L [facility] Anion Gap 15 5 - 15 mmol/L [facility] Calcium 8.7 8.5 - 10.5 mg/dL [facility] Est Glomerular Filtration Rate >60 [...] the following links into your internet browser. [email or web address] Blood specimen (specimen) 07/19/2017 4:50 PM EDT 07/19/2017 5:05 PM EDT Narrative Resulting Agency Comment Spec In Lab Sriram Contreras MD CHEMISTRY ORDERABL ES Performing Organization Address [facility] Co de Phone Number [facility] [place] [address] * Magnesium (07/19/2017 4:50 PM EDT) Magnesium 0.86 0.69 - 1.07 mmol/L [facility] Blood specimen (specimen) 07/19/2017 4:50 PM EDT 07/19/2017 5:05 PM EDT Narrative Resulting Agency Comment Spec In Lab Sriram Contreras MD CHEMISTRY ORDERABL ES Performing Organization Address [facility] de Phone Number [facility] [place] [address] * POCT Glucose (07/19/2017 3:37 PM EDT) Glucose, POC 101 65 - 199 mg/dL [facility] Comment: Supplemental ranges: <140 mg/dL before meals <180 mg/dL all other times of the day Blood specimen (specimen) 07/19/2017 3:37 PM EDT 07/19/2017 3:37 PM EDT Sriram Contreras MD POINT OF CARE TEST ORDERABLES Performing Organization Address [facility] Co de Phone Number [facility] [place] [address] * XR Chest PA or AP 1 [...] Glucose, POC 100 65 - 199 mg/dL [facility] Comment: Supplemental ranges: <140 mg/dL before meals <180 mg/dL all other times of the day Blood specimen (specimen) 07/19/2017 12:36 PM EDT 07/19/2017 12:36 PM EDT Sriram Contreras MD POINT OF CARE TEST ORDERABLES [facility] [place] [address] * Potassium (07/19/2017 12:30 PM EDT) Potassium [...] ES [facility] [place] [address] * (ABNORMAL) BLOOD GAS 2 ARTERIAL (07/19/2017 12:17 PM EDT) pH, Arterial 7.50(H) 7.35 - 7.45 [facility] PCO2, Arterial 32(L) 35 - 45 mmHg [facility] PO2, Arterial 60(L) 85 - 104 mmHg [facility] Bicarbonate, Arterial 23.7 20.0 - 26.0 mmol/L [facility] Base Excess, Arterial 0.5 -3.0 - 3.0 mmol/L [facility] Hgb Blood Gas 14.8 13.7 - 16.5 gm/dL [facility] Oxyhemoglobin, Arterial 91.1(L) 94.0 - 97.0 % [facility] Carboxyhemoglob in, Arterial 0.1 % [facility] Comment: Nonsmokers: 0.5-1.5% COHB Smokers: Variable, but usually less than 10% Toxic: 20-30% COHB Lethal: Greater than 60% COHB Methemoglobin, Arterial 0.6 <=1.5 % [facility] Na Whole Blood 145 135 [facility] FIO2 Art 45 % [facility] PF Ratio Art 133 [facility] Blood specimen (specimen) 07/19/2017 12:17 PM EDT 07/19/2017 12:17 PM EDT Sriram Contreras MD POINT OF CARE TEST ORDERABLES Performing Organization Address [facility] Co de Phone Number [facility] [place] [address] * Potassium (07/19/2017 8:50 AM EDT) Potassium [...] MD CHEMISTRY ORDERABL ES Performing Organization Address [facility] Co de Phone Number [facility] [place] [address] * Folate, serum (07/19/2017 8:50 AM EDT) Folate 16.6 4.8 - 24.2 ng/mL [facility] Blood specimen (specimen) 07/19/2017 8:50 AM EDT 07/19/2017 9:11 AM EDT Narrative Resulting Agency Comment Spec In Lab Sriram Contreras MD CHEMISTRY ORDERABL ES Performing Organization Address [facility]/ZIP Co de Phone Number [facility] [place] [address] * Vitamin B12 (07/19/2017 8:50 AM EDT) Vitamin B12 468 207 - 974 pg/mL [facility] Blood specimen (specimen) 07/19/2017 8:50 AM EDT 07/19/2017 9:11 AM EDT Narrative Resulting Agency Comment Spec In Lab Sriram Contreras MD CHEMISTRY ORDERABL ES Performing Organization Address City/[facility]/ZIP Co de Phone Number [facility] [place] [address] * (ABNORMAL) TSH (07/19/2017 8:50 AM EDT) Thyroid Stimulating Hormone 6.80(H) 0.27 - 4.20 mlU/ML [facility] Blood specimen (specimen) 07/19/2017 8:50 AM EDT 07/19/2017 9:11 AM EDT Narrative Resulting Agency Comment Spec In Lab Sriram Contreras MD CHEMISTRY ORDERABL ES Performing Organization Address [facility] Co de Phone Number [facility] [place] [address] * Urine Hold (07/19/2017 8:07 AM EDT) Hold, Urine Sample in lab. [facility] Urine specimen (specimen) Urine / Unknown 07/19/2017 8:07 AM EDT 07/19/2017 8:35 AM EDT Sriram Contreras MD URINE ORDERABLES Performing Organization Address City/[facility]/ZIP Co de Phone Number [facility] [place] [address] * (ABNORMAL) Urinalysis with reflex Culture (07/19/2017 8:07 AM EDT) Glucose, Urine Dipstick Negative Negative mg/dL [facility] Protein, Urine Dipstick 30(A) Negative mg/dL [facility] Bilirubin, Urine Dipstick Negative Negative mg/dL [facility] Comment: Clinical correlation required for positive Urine Bilirubin results as false positive may occur with some drugs and drug related products. If a false positive is suspected a serum total bilirubin should be considered if clinically indicated. Urobilinogen, Urine Dipstick >=4.0(A) Normal mg/dL [facility] pH, Urn (dipstick) 7.0 5.0 - 8.0 [facility] Blood, Urine Dipstick Moderate(A) Negative mg/dL [facility] Ketone, Urine Dipstick Negative Negative mg/dL [facility] Nitrite, Urine Dipstick Negative Negative [facility] Leukocytes, Urine Dipstick Trace(A) Negative [facility] Appearance, Urine Dipstick Clear Clear [facility] Specific Boutte Urine Automated 1.025 1.002 - 1.030 [facility] Color, Urine Dipstick Yellow Yellow [facility] RBC, Urine 161(H) 0 - 3 /HPF [facility] WBC, Urine 1 0 - 3 /HPF [facility] Reflex to Culture No [facility] Urine specimen obtained via indwelling urinary catheter (specimen) 07/19/2017 8:07 AM EDT 07/19/2017 8:34 AM EDT Narrative Resulting Agency Comment Spec In Lab Sriram Contreras MD URINE ORDERABLES [facility] [place] [address] * POCT Glucose (07/19/2017 7:42 AM EDT) Glucose, POC 99 65 - 199 mg/dL [facility] Comment: Supplemental ranges: <140 mg/dL before meals <180 mg/dL all other times of the day Blood specimen (specimen) 07/19/2017 7:42 AM EDT 07/19/2017 7:42 AM EDT Sriram Contreras MD POINT OF CARE TEST ORDERABLES [facility] [place] [address] * POCT Glucose (07/19/2017 4:11 AM EDT) Pathologist [facility] Glucose, POC 93 65 - 199 mg/dL [facility] Comment: Supplemental ranges: <140 mg/dL before meals <180 mg/dL all other times of the day Blood specimen (specimen) 07/19/2017 4:11 AM EDT 07/19/2017 4:11 AM EDT Sriram Contreras MD POINT OF CARE TEST ORDERABLES Performing Organization Address City/[facility]/ZIP Co de Phone Number [facility] [place] [address] * (ABNORMAL) Differential, Automated (07/19/2017 2:30 AM EDT) [facility] Neutrophil % 77.9 % [facility] Neutrophil Absolute 9.99(H) 1.70 - 6.10 x10(3)/mc L [facility] Lymph % 9.8 % [facility] Lymphocytes Abs 1.2 0.9 - 3.2 x10(3)/mc L [facility] Monocyte % 11.5 % [facility] Monocyte Abs 1.5(H) 0.3 - 0.9 x10(3)/mc L [facility] Eos % 0.1 % [facility] Eosinophils Abs 0.0 0.0 - 0.4 x10(3)/mc L [facility] Basophil % 0.2 % [facility] Baso Absolute 0.0 0.0 - 0.1 x10(3)/mc L [facility] Immature Gran % 0.50 % [facility] Comment: Immature granulocytes(IG's)percentage and absolute count will include metamyelocytes, myelocytes, and promyelocytes. Blood smears from CBCs yielding IG's will be scanned manually for concordance. If this scan disagrees with the automated IG or if promyelocytes are noted, a manual differential will be performed. Immature Gran Absolute 0.07(H) 0.00 - 0.04 x10(3)/mc L [facility] Blood specimen (specimen) 07/19/2017 2:30 AM EDT 07/19/2017 2:34 AM EDT Narrative Resulting Agency Comment Spec In Lab Sriram Contreras MD HEMATOLOGY ORDERAB LES [facility] [place] [address] * (ABNORMAL) Hemogram (07/19/2017 2:30 AM EDT) White Blood Cell 12.8(H) 4.0 - 9.5 x10(3)/mc L [facility] Red Blood Cell 4.30(L) 4.58 - 5.54 x10(6)/mc L [facility] Hemoglobin 13.5(L) 13.7 - 16.5 gm/dL [facility] Hematocrit 38.6(L) 40.5 - 48.5 % [facility] Mean Cell Volume 89.8 82.9 - 93.1 fL [facility] Mean Cell Hemoglobin 31.4 27.5 - 32.1 pg [facility] Mean Cell Hemoglobin Concentration 35.0 32.0 - 35.7 gm/dL [facility] Platelet 176 145 - 357 x10(3)/mc L [facility] RDW Standard Deviation 45.1(H) 36.0 - 45.0 fL [facility] RDW coefficient of variation 13.9(H) 11.4 - 13.8 % [facility] Mean Platelet Volume 9.8 7.6 - 12.9 fL [facility] NRBC% auto 0.0 % [facility] NRBC Absolute 0.000 0.000 - 0.000 x10(3)/mc L [facility] Blood specimen (specimen) 07/19/2017 2:30 AM EDT 07/19/2017 2:34 AM EDT Narrative Resulting Agency Comment Spec In Lab Sriram Contreras MD HEMATOLOGY ORDERAB LES [facility] [place] [address] * (ABNORMAL) Basic Metabolic Panel (non-fasting) (07/19/2017 2:30 AM EDT) Glucose 102 65 - 199 mg/dL [facility] Comment:Diabetes: >=200 mg/d L plus symptoms Blood Urea Nitrogen 23(H) 10 - 20 mg/dL [facility] Creatinine 0.87 0.80 - 1.50 mg/dL [facility] Comment: Please note that the pediatric reference intervals supplied above were not validated at [facility]. Results from pediatric patients should be interpreted [...] 107 mmol/L [facility] Carbon Dioxide 23 22 - 31 mmol/L [facility] Anion Gap 15 5 - 15 mmol/L [facility] Calcium 8.5 8.5 - 10.5 mg/dL [facility] Est Glomerular Filtration Rate >60 [...] the following links into your internet browser. [email or web address] Blood specimen (specimen) 07/19/2017 2:30 AM EDT 07/19/2017 2:34 AM EDT Narrative Resulting Agency Comment Spec In Lab Sriram Contreras MD CHEMISTRY ORDERABL ES Performing Organization Address [facility] Co de Phone Number [facility] [place] [address] * (ABNORMAL) Prealbumin (07/19/2017 2:30 AM EDT) Prealbumin 17(L) 20 - 40 mg/dL [facility] Comment: Prealbumin levels are generally lower in the pediatric population; adult concentrations are usually attained near puberty. Blood specimen (specimen) 07/19/2017 2:30 AM EDT 07/19/2017 2:34 AM EDT Narrative Resulting Agency Comment Spec In Lab Sriram Contreras MD CHEMISTRY ORDERABL ES Performing Organization Address [facility] Co de Phone Number [facility] [place] [address] * (ABNORMAL) BLOOD GAS 2 ARTERIAL (07/18/2017 11:53 PM EDT) pH, Arterial 7.50(H) 7.35 - 7.45 [facility] PCO2, Arterial 32(L) 35 - 45 mmHg [facility] PO2, Arterial 61(L) 85 - 104 mmHg [facility] Bicarbonate, Arterial 24.5 20.0 - 26.0 mmol/L [facility] Base Excess, Arterial 1.3 -3.0 - 3.0 mmol/L [facility] Hgb Blood Gas 14.1 13.7 - 16.5 gm/dL [facility] Oxyhemoglobin, Arterial 90.9(L) 94.0 - 97.0 % [facility] Carboxyhemoglob in, Arterial 0.3 % [facility] Comment: Nonsmokers: 0.5-1.5% COHB Smokers: Variable, but usually less than 10% Toxic: 20-30% COHB Lethal: Greater than 60% COHB Methemoglobin, Arterial 0.7 <=1.5 % [facility] Na Whole Blood 144 135 [...] [facility] FIO2 Art 45 % [facility] PF Ratio Art 136 [facility] Blood specimen (specimen) 07/18/2017 11:53 PM EDT 07/18/2017 11:53 PM EDT Sriram Contreras MD POINT OF CARE TEST ORDERABLES [facility] [place] [address] * POCT Glucose (07/18/2017 11:49 PM EDT) Glucose, POC 102 65 - 199 mg/dL [facility] Comment: Supplemental ranges: <140 mg/dL before meals <180 mg/dL all other times of the day Blood specimen (specimen) 07/18/2017 11:49 PM EDT 07/18/2017 11:49 PM EDT Sriram Contreras MD POINT OF CARE TEST ORDERABLES Performing Organization Address City/[facility]/ZIP Co de Phone Number [facility] [place] [address] * POCT Glucose (07/18/2017 8:44 PM EDT) Glucose, POC 108 65 - 199 mg/dL [facility] Comment: Supplemental ranges: <140 mg/dL before meals <180 mg/dL all other times of the day Blood specimen (specimen) 07/18/2017 8:44 PM EDT 07/18/2017 8:44 PM EDT Sriram Contreras MD POINT OF CARE TEST ORDERABLES Performing Organization Address City/[facility] Co de Phone Number [facility] [place] [address] * (ABNORMAL) BLOOD GAS 2 ARTERIAL (07/18/2017 5:22 PM EDT) pH, Arterial 7.54(H) 7.35 - 7.45 [facility] PCO2, Arterial 31(L) 35 - 45 mmHg [facility] PO2, Arterial 55(L) 85 - 104 mmHg [facility] Bicarbonate, Arterial 25.9 20.0 - 26.0 mmol/L [facility] Base Excess, Arterial 3.3(H) -3.0 - 3.0 mmol/L [facility] Hgb Blood Gas 14.2 13.7 - 16.5 gm/dL [facility] Oxyhemoglobin, Arterial 90.3(L) 94.0 - 97.0 % [facility] Carboxyhemoglob in, Arterial 0.3 % [facility] Comment: Nonsmokers: 0.5-1.5% COHB Smokers: Variable, but usually less than 10% Toxic: 20-30% COHB Lethal: Greater than 60% COHB Methemoglobin, Arterial 0.5 <=1.5 % [facility] Na Whole Blood 144 135 [...] [facility] FIO2 Art 40 % [facility] PF Ratio Art 138 [facility] Blood specimen (specimen) 07/18/2017 5:22 PM EDT 07/18/2017 5:22 PM EDT Sriram Contreras MD POINT OF CARE TEST ORDERABLES [facility] [place] [address] * POCT Glucose (07/18/2017 3:42 PM EDT) Glucose, POC 119 65 - 199 mg/dL [facility] Comment: Supplemental ranges: <140 mg/dL before meals <180 mg/dL all other times of the day Blood specimen (specimen) 07/18/2017 3:42 PM EDT 07/18/2017 3:42 PM EDT Sriram Contreras MD POINT OF CARE TEST ORDERABLES [facility] [place] [address] * POCT Glucose (07/18/2017 1:05 PM EDT) Glucose, POC 118 65 - 199 mg/dL [facility] Comment: Supplemental ranges: <140 mg/dL before meals <180 mg/dL all other times of the day Blood specimen (specimen) 07/18/2017 1:05 PM EDT 07/18/2017 1:05 PM EDT Sriram Contreras MD POINT OF CARE TEST ORDERABLES Performing Organization Address [facility] Co de Phone Number [facility] [place] [address] * (ABNORMAL) BLOOD GAS 2 ARTERIAL (07/18/2017 11:47 AM EDT) pH, Arterial 7.51(H) 7.35 - 7.45 [facility] PCO2, Arterial 33(L) 35 - 45 mmHg [facility] PO2, Arterial 94 85 - 104 mmHg [facility] Bicarbonate, Arterial 25.1 20.0 - 26.0 mmol/L [facility] Base Excess, Arterial 2.0 -3.0 - 3.0 mmol/L [facility] Hgb Blood Gas 14.4 13.7 - 16.5 gm/dL [facility] Oxyhemoglobin, Arterial 96.1 94.0 - 97.0 % [facility] Carboxyhemoglob in, Arterial 0.3 % [facility] Comment: Nonsmokers: 0.5-1.5% COHB Smokers: Variable, but usually less than 10% Toxic: 20-30% COHB Lethal: Greater than 60% COHB Methemoglobin, Arterial 0.6 <=1.5 % [facility] Na Whole Blood 141 135 [...] [facility] FIO2 Art 50 % [facility] PF Ratio Art 188 [facility] Blood specimen (specimen) 07/18/2017 11:47 AM EDT 07/18/2017 11:47 AM EDT Sriram Contreras MD POINT OF CARE TEST ORDERABLES [facility] [place] [address] * (ABNORMAL) BLOOD GAS 2 ARTERIAL (07/18/2017 7:56 AM EDT) pH, Arterial 7.50(H) 7.35 - 7.45 [facility] PCO2, Arterial 31(L) 35 - 45 mmHg [facility] PO2, Arterial 82(L) 85 - 104 mmHg [facility] Bicarbonate, Arterial 24.2 20.0 - 26.0 mmol/L [facility] Base Excess, Arterial 1.0 -3.0 - 3.0 mmol/L [facility] Hgb Blood Gas 13.4(L) 13.7 - 16.5 gm/dL [facility] Oxyhemoglobin, Arterial 95.3 94.0 - 97.0 % [facility] Carboxyhemoglob in, Arterial 0.3 % [facility] Comment: Nonsmokers: 0.5-1.5% COHB Smokers: Variable, but usually less than 10% Toxic: 20-30% COHB Lethal: Greater than 60% COHB Methemoglobin, Arterial 0.5 <=1.5 % [facility] Na Whole Blood 143 135 [...] [facility] FIO2 Art 60 % [facility] PF Ratio Art 137 [facility] Blood specimen (specimen) 07/18/2017 7:56 AM EDT 07/18/2017 7:56 AM EDT Sriram Contreras MD POINT OF CARE TEST ORDERABLES [facility] [place] [address] * (ABNORMAL) BLOOD GAS 2 ARTERIAL (07/18/2017 3:55 AM EDT) pH, Arterial 7.51(H) 7.35 - 7.45 [facility] PCO2, Arterial 34(L) 35 - 45 mmHg [facility] PO2, Arterial 95 85 - 104 mmHg [facility] Bicarbonate, Arterial 26.4(H) 20.0 - 26.0 mmol/L [facility] Base Excess, Arterial 3.4(H) -3.0 - 3.0 mmol/L [facility] Hgb Blood Gas 14.2 13.7 - 16.5 gm/dL [facility] Oxyhemoglobin, Arterial 96.4 94.0 - 97.0 % [facility] Carboxyhemoglob in, Arterial 0.5 % [facility] Comment: Nonsmokers: 0.5-1.5% COHB Smokers: Variable, but usually less than 10% Toxic: 20-30% COHB Lethal: Greater than 60% COHB Methemoglobin, Arterial 0.6 <=1.5 % [facility] Na Whole Blood 142 135 [...] [facility] FIO2 Art 70 % [facility] PF Ratio Art 136 [facility] Blood specimen (specimen) 07/18/2017 3:55 AM EDT 07/18/2017 3:55 AM EDT Sriram Contreras MD POINT OF CARE TEST ORDERABLES [facility] [place] [address] * (ABNORMAL) POCT Glucose (07/18/2017 3:42 AM EDT) [facility] Glucose, POC 205(H) 65 - 199 mg/dL [facility] Comment: Supplemental ranges: <140 mg/dL before meals <180 mg/dL all other times of the day Blood specimen (specimen) 07/18/2017 3:42 AM EDT 07/18/2017 3:42 AM EDT Sriram Contreras MD POINT OF CARE TEST ORDERABLES Performing Organization Address [facility] Co de Phone Number [facility] [place] [address] * (ABNORMAL) Magnesium (07/18/2017 2:20 AM EDT) [facility] Magnesium 1.09(H) 0.69 - 1.07 mmol/L [facility] Blood specimen (specimen) Venous Draw / Unknown 07/18/2017 2:20 AM EDT 07/18/2017 2:31 AM EDT Narrative Resulting Agency Comment Spec In Lab Sriram Contreras MD CHEMISTRY ORDERABL ES Performing Organization Address [facility] Co de Phone Number [facility] [place] [address] * (ABNORMAL) Differential, Automated (07/18/2017 2:20 AM EDT) [facility] Neutrophil % 86.8 % [facility] Neutrophil Absolute 9.28(H) 1.70 - 6.10 x10(3)/mc L [facility] Lymph % 5.8 % [facility] Lymphocytes Abs 0.6(L) 0.9 - 3.2 x10(3)/mc L [facility] Monocyte % 6.5 % [facility] Monocyte Abs 0.7 0.3 - 0.9 x10(3)/mc L [facility] Eos % 0.0 % [facility] Eosinophils Abs 0.0 0.0 - 0.4 x10(3)/[facility] Basophil % 0.2 % [facility] Baso Absolute 0.0 0.0 - 0.1 x10(3)/[facility] Immature Gran % 0.70 % [facility] Comment: Immature granulocytes(IG's)percentage and absolute count will include metamyelocytes, myelocytes, and promyelocytes. Blood smears from CBCs yielding IG's will be scanned manually for concordance. If this scan disagrees with the automated IG or if promyelocytes are noted, a manual differential will be performed. Immature Gran Absolute 0.08(H) 0.00 - 0.04 x10(3)/[facility] Blood specimen (specimen) 07/18/2017 2:20 AM EDT 07/18/2017 2:28 AM EDT Narrative Resulting Agency Comment Spec In Lab Sriram Contreras MD HEMATOLOGY ORDERAB LES Performing Organization Address City/State/[facility] Co de Phone Number [facility]ORAT[facility] [place] [phone] * (ABNORMAL) Hemogram (07/18/2017 2:20 AM EDT) White Blood Cell 10.7(H) 4.0 - 9.5 x10(3)/[facility] LABORATORY Red Blood Cell 4.39(L) 4.58 - 5.54 x10(6)/[facility] LABORATORY Hemoglobin 13.6(L) 13.7 - 16.5 gm/dL [facility] Hematocrit 38.8(L) 40.5 - 48.5 % [facility] Mean Cell Volume 88.4 82.9 - 93.1 fL [place] [facility] Mean Cell Hemoglobin 31.0 27.5 - 32.1 pg [facility] Mean Cell Hemoglobin Concentration 35.1 32.0 - 35.7 gm/dL [facility] Platelet 147 145 - 357 x10(3)/[facility]ORY RDW Standard Deviation 43.4 36.0 - 45.0 fL [facility] RDW coefficient of variation 13.3 11.4 - 13.8 % [facility] Mean Platelet Volume 10.9 7.6 - 12.9 [facility] NRBC% auto 0.0 % [facility] NRBC Absolute 0.000 0.000 - 0.000 x10(3)/mc L [facility] Blood specimen (specimen) 07/18/2017 2:20 AM EDT 07/18/2017 2:28 AM EDT Narrative Resulting Agency Comment Spec In Lab Sriram Contreras MD HEMATOLOGY ORDERAB LES [facility] [place] [address] * (ABNORMAL) Basic Metabolic Panel (non-fasting) (07/18/2017 2:20 AM EDT) Glucose 181 65 - 199 mg/dL [facility] Comment:Diabetes: >=200 mg/d L plus symptoms Blood Urea Nitrogen 22(H) 10 - 20 mg/dL [facility] Creatinine 0.74(L) 0.80 - 1.50 mg/dL [facility] Comment: Please note that the pediatric reference intervals supplied above were not validated at [facility]. Results from pediatric patients should be interpreted [...] 107 mmol/L [facility] Carbon Dioxide 25 22 - 31 mmol/L [facility] Anion Gap 15 5 - 15 mmol/L [facility] Calcium 8.8 8.5 - 10.5 mg/dL [facility] Est Glomerular Filtration Rate >60 [...] the following links into your internet browser. [email or web address] Blood specimen (specimen) 07/18/2017 2:20 AM EDT 07/18/2017 2:28 AM EDT Narrative Resulting Agency Comment Spec In Lab Sriram Contreras MD CHEMISTRY ORDERABL ES [facility] [place] [phone] * (ABNORMAL) BLOOD GAS 2 ARTERIAL (07/17/2017 11:36 PM EDT) pH, Arterial 7.51(H) 7.35 - 7.45 [facility] PCO2, Arterial 32(L) 35 - 45 mmHg [facility] PO2, Arterial 60(L) 85 - 104 mmHg [facility] Bicarbonate, Arterial 25.0 20.0 - 26.0 mmol/L [facility] Base Excess, Arterial 2.0 -3.0 - 3.0 mmol/L [facility] Hgb Blood Gas 14.8 13.7 - 16.5 gm/dL [facility] Oxyhemoglobin, Arterial 92.1(L) 94.0 - 97.0 % [facility] Carboxyhemoglob in, Arterial 0.3 % [facility] Comment: Nonsmokers: 0.5-1.5% COHB Smokers: Variable, but usually less than 10% Toxic: 20-30% COHB Lethal: Greater than 60% COHB Methemoglobin, Arterial 0.5 <=1.5 % [facility] Na Whole Blood 143 135 [...] [facility] FIO2 Art 60 % [facility] PF Ratio Art 100 [facility] Blood specimen (specimen) 07/17/2017 11:36 PM EDT 07/17/2017 11:36 PM EDT Sriram Contreras MD POINT OF CARE TEST ORDERABLES Performing Organization Address City/State/[facility] Co de Phone Number [facility] [place] [address] * (ABNORMAL) POCT Glucose (07/17/2017 11:34 PM EDT) Glucose, POC 202(H) 65 - 199 mg/dL [facility] Comment: Supplemental ranges: <140 mg/dL before meals <180 mg/dL all other times of the day Blood specimen (specimen) 07/17/2017 11:34 PM EDT 07/17/2017 11:34 PM EDT Sriram Contreras MD POINT OF CARE TEST ORDERABLES [facility] [place] [address] * Magnesium (07/17/2017 10:10 PM EDT) Pathologist [facility] Magnesium 0.87 0.69 - 1.07 mmol/L [facility] Blood specimen (specimen) 07/17/2017 10:10 PM EDT 07/17/2017 10:18 PM EDT Narrative Resulting Agency Comment Spec In Lab Sriram Contreras MD CHEMISTRY ORDERABL ES Performing Organization Address City/[facility] Co de Phone Number [facility] [place] [address] * (ABNORMAL) BLOOD GAS 2 ARTERIAL (07/17/2017 7:51 PM EDT) Pathologist [facility] pH, Arterial 7.49(H) 7.35 - 7.45 [facility] PCO2, Arterial 36 35 - 45 mmHg [facility] PO2, Arterial 67(L) 85 - 104 mmHg [facility] Bicarbonate, Arterial 26.8(H) 20.0 - 26.0 mmol/L [facility] Base Excess, Arterial 3.4(H) -3.0 - 3.0 mmol/L [facility] Hgb Blood Gas 14.3 13.7 - 16.5 gm/dL [facility] Oxyhemoglobin, Arterial 93.4(L) 94.0 - 97.0 % [facility] Carboxyhemoglob in, Arterial 0.3 % [facility] Comment: Nonsmokers: 0.5-1.5% COHB Smokers: Variable, but usually less than 10% Toxic: 20-30% COHB Lethal: Greater than 60% COHB Methemoglobin, Arterial 0.6 <=1.5 % [facility] Na Whole Blood 143 135 [...] [facility] FIO2 Art 60 % [facility] PF Ratio Art 112 [facility] Blood specimen (specimen) 07/17/2017 7:51 PM EDT 07/17/2017 7:51 PM EDT Sriram Contreras MD POINT OF CARE TEST ORDERABLES Performing Organization Address City/[facility]/ZIP Co de Phone Number [facility] [place] [address] * POCT Glucose (07/17/2017 7:50 PM EDT) Glucose, POC 153 65 - 199 mg/dL [facility] Comment: Supplemental ranges: <140 mg/dL before meals <180 mg/dL all other times of the day Blood specimen (specimen) 07/17/2017 7:50 PM EDT 07/17/2017 7:50 PM EDT Sriram Contreras MD POINT OF CARE TEST ORDERABLES Performing Organization Address City/[facility]/ZIP Co de Phone Number [facility] [place] [address] * (ABNORMAL) BLOOD GAS 2 ARTERIAL (07/17/2017 3:20 PM EDT) pH, Arterial 7.51(H) 7.35 - 7.45 [facility] PCO2, Arterial 31(L) 35 - 45 mmHg [facility] PO2, Arterial 67(L) 85 - 104 mmHg [facility] Bicarbonate, Arterial 24.3 20.0 - 26.0 mmol/L [facility] Base Excess, Arterial 1.3 -3.0 - 3.0 mmol/L [facility] Hgb Blood Gas 14.1 13.7 - 16.5 gm/dL [facility] Oxyhemoglobin, Arterial 93.8(L) 94.0 - 97.0 % [facility] Carboxyhemoglob in, Arterial 0.3 % [facility] Comment: Nonsmokers: 0.5-1.5% COHB Smokers: Variable, but usually less than 10% Toxic: 20-30% COHB Lethal: Greater than 60% COHB Methemoglobin, Arterial 0.5 <=1.5 % [facility] Na Whole Blood 141 135 [...] [facility] FIO2 Art 50 % [facility] PF Ratio Art 134 [facility] Blood specimen (specimen) 07/17/2017 3:20 PM EDT 07/17/2017 3:20 PM EDT Sriram Contreras MD POINT OF CARE TEST ORDERABLES [facility] [place] [address] * (ABNORMAL) BLOOD GAS 2 ARTERIAL (07/17/2017 12:50 PM EDT) pH, Arterial 7.51(H) 7.35 - 7.45 [facility] PCO2, Arterial 30(L) 35 - 45 mmHg [facility] PO2, Arterial 52(L) 85 - 104 mmHg [facility] Bicarbonate, Arterial 23.7 20.0 - 26.0 mmol/L [facility] Base Excess, Arterial 0.8 -3.0 - 3.0 mmol/L [facility] Hgb Blood Gas 14.0 13.7 - 16.5 gm/dL [facility] Oxyhemoglobin, Arterial 89.4(L) 94.0 - 97.0 % [facility] Carboxyhemoglob in, Arterial 0.3 % [facility] Comment: Nonsmokers: 0.5-1.5% COHB Smokers: Variable, but usually less than 10% Toxic: 20-30% COHB Lethal: Greater than 60% COHB Methemoglobin, Arterial 0.5 <=1.5 % [facility] Na Whole Blood 140 135 [...] [facility] FIO2 Art 50 % [facility] PF Ratio Art 104 [facility] Blood specimen (specimen) 07/17/2017 12:50 PM EDT 07/17/2017 12:50 PM EDT Sriram Contreras MD POINT OF CARE TEST ORDERABLES [facility] [place] [address] * XR Chest PA or AP 1 [...] EDT) pH, Arterial 7.48(H) 7.35 - 7.45 [facility] PCO2, Arterial 34(L) 35 - 45 mmHg [facility] PO2, Arterial 55(L) 85 - 104 mmHg [facility] Bicarbonate, Arterial 24.7 20.0 - 26.0 mmol/L [facility] Base Excess, Arterial 1.2 -3.0 - 3.0 mmol/L [facility] Hgb Blood Gas 14.1 13.7 - 16.5 gm/dL [facility] Oxyhemoglobin, Arterial 90.4(L) 94.0 - 97.0 % [facility] Carboxyhemoglob in, Arterial 0.1 % [facility] Comment: Nonsmokers: 0.5-1.5% COHB Smokers: Variable, but usually less than 10% Toxic: 20-30% COHB Lethal: Greater than 60% COHB Methemoglobin, Arterial 0.7 <=1.5 % [facility] Na Whole Blood 141 135 [...] [facility] FIO2 Art 40 % [facility] PF Ratio Art 138 [facility] Blood specimen (specimen) 07/17/2017 11:54 AM EDT 07/17/2017 11:54 AM EDT Sriram Contreras MD POINT OF CARE TEST ORDERABLES [facility] [place] [address] * Cardiac Enzymes (07/17/2017 5:42 AM EDT) [...] meets the diagnosis for a myocardial infarction (CT). Detection of a rise and/or fall of cTnT, with at least one value greater than the 99th percentile (> or = 0.01) and with at least one of the following ?? Symptoms of ischemia ?? New or presumed new significant II-nrniwgu-T wave (ST-T) changes or new left bundle [...] additional sample may be indicated. Reference: Third [place] Definition of Myocardial Infarction. Journal of the [employer] 2012;60:1581-98 Creatine Kinase 47 0 - 200 unit/L [facility] Blood specimen (specimen) 07/17/2017 5:42 AM EDT 07/17/2017 5:42 AM EDT Narrative Resulting Agency Comment Spec In Lab Sriram Contreras MD CHEMISTRY ORDERABL ES [facility] [place] [address] * (ABNORMAL) Differential, Automated (07/17/2017 12:30 AM EDT) Neutrophil % 90.5 % [facility] Neutrophil Absolute 8.62(H) 1.70 - 6.10 x10(3)/mc L [facility] Lymph % 3.7 % [facility] Lymphocytes Abs 0.4(L) 0.9 - 3.2 x10(3)/mc L [facility] Monocyte % 4.9 % [facility] Monocyte Abs 0.5 0.3 - 0.9 x10(3)/mc L [facility] Eos % 0.0 % [facility] Eosinophils Abs 0.0 0.0 - 0.4 x10(3)/mc L [facility] Basophil % 0.1 % [facility] Baso Absolute 0.0 0.0 - 0.1 x10(3)/mc L [facility] Immature Gran % 0.80 % [facility] Comment: Immature granulocytes(IG's)percentage and absolute count will include metamyelocytes, myelocytes, and promyelocytes. Blood smears from CBCs yielding IG's will be scanned manually for concordance. If this scan disagrees with the automated IG or if promyelocytes are noted, a manual differential will be performed. Immature Gran Absolute 0.08(H) 0.00 - 0.04 x10(3)/mc L [facility] Blood specimen (specimen) 07/17/2017 12:30 AM EDT 07/17/2017 1:13 AM EDT Narrative Resulting Agency Comment Spec In Lab Sriram Contreras MD HEMATOLOGY ORDERAB LES [facility] [place] [address] * (ABNORMAL) Hemogram (07/17/2017 12:30 AM EDT) White Blood Cell 9.5 4.0 - 9.5 x10(3)/mc L [facility] Red Blood Cell 3.98(L) 4.58 - 5.54 x10(6)/mc L [facility] Hemoglobin 12.4(L) 13.7 - 16.5 gm/dL [facility] Hematocrit 36.7(L) 40.5 - 48.5 % [facility] Mean Cell Volume 92.2 82.9 - 93.1 fL [facility] Mean Cell Hemoglobin 31.2 27.5 - 32.1 pg [facility] Mean Cell Hemoglobin Concentration 33.8 32.0 - 35.7 gm/dL [facility] Platelet 133(L) 145 - 357 x10(3)/mc L [facility] RDW Standard Deviation 47.7(H) 36.0 - 45.0 fL [facility] RDW coefficient of variation 13.8 11.4 - 13.8 % [facility] Mean Platelet Volume 10.9 7.6 - 12.9 fL [facility] NRBC% auto 0.0 % [facility] NRBC Absolute 0.000 0.000 - 0.000 x10(3)/mc L [facility] Blood specimen (specimen) 07/17/2017 12:30 AM EDT 07/17/2017 1:13 AM EDT Narrative Resulting Agency Comment Spec In Lab Sriram Contreras MD HEMATOLOGY ORDERAB LES [facility] [place] [address] * (ABNORMAL) Basic Metabolic Panel (non-fasting) (07/17/2017 12:30 AM EDT) Glucose 246(H) 65 - 199 mg/dL [facility] Comment:Diabetes: >=200 mg/d L plus symptoms Blood Urea Nitrogen 17 10 - 20 mg/dL [facility] Creatinine 0.73(L) 0.80 - 1.50 mg/dL [facility] Comment: Please note that the pediatric reference intervals supplied above were not validated at [facility]. Results from pediatric patients should be interpreted [...] 107 mmol/L [facility] Carbon Dioxide 21(L) 22 - 31 mmol/L [facility] Anion Gap 13 5 - 15 mmol/L [facility] Calcium 8.3(L) 8.5 - 10.5 mg/dL [facility] Est Glomerular Filtration Rate >60 [...] the following links into your internet browser. [email or web address] Blood specimen (specimen) 07/17/2017 12:30 AM EDT 07/17/2017 1:13 AM EDT Narrative Resulting Agency Comment Spec In Lab Sriram Contreras MD CHEMISTRY ORDERABL ES Performing Organization Address [facility] Co de Phone Number [facility] [place] [address] * Cardiac Enzymes (07/17/2017 12:30 AM EDT) [...] meets the diagnosis for a myocardial infarction (CT). Detection of a rise and/or fall of cTnT, with at least one value greater than the 99th percentile (> or = 0.01) and with at least one of the following ?? Symptoms of ischemia ?? New or presumed new significant YC-izemocw-Z wave (ST-T) changes or new left bundle [...] additional sample may be indicated. Reference: Third [place] Definition of Myocardial Infarction. Journal of the [employer] 2012;60:1581-98 Creatine Kinase 60 0 - 200 unit/L [facility] Blood specimen (specimen) 07/17/2017 12:30 AM EDT 07/17/2017 1:13 AM EDT Narrative Resulting Agency Comment Spec In Lab Sriram Contreras MD CHEMISTRY ORDERABL ES Performing Organization Address [facility]/ZIP Co de Phone Number [facility] [place] [address] * XR Chest PA or AP 1 [...] meets the diagnosis for a myocardial infarction (CT). Detection of a rise and/or fall of cTnT, with at least one value greater than the 99th percentile (> or = 0.01) and with at least one of the following ?? Symptoms of ischemia ?? New or presumed new significant HD-xxfbabp-H wave (ST-T) changes or new left bundle [...] additional sample may be indicated. Reference: Third [place] Definition of Myocardial Infarction. Journal of the [employer] 2012;60:1581-98 Creatine Kinase 63 0 - 200 unit/L [facility] Blood specimen (specimen) 07/16/2017 5:10 PM EDT 07/16/2017 5:20 PM EDT Narrative Resulting Agency Comment Spec In Lab Sriram Contreras MD CHEMISTRY ORDERABL ES Performing Organization Address [facility] Co de Phone Number [facility] [place] [phone] * EKG 12 Lead (07/16/2017 4:46 PM EDT) Ventricular rate 70 BPM MUSE SYSTEM Atrial Rate 70 BPM MUSE SYSTEM P-R Interval 208 ms MUSE SYSTEM QRS Duration 96 ms MUSE SYSTEM Q-T Interval 404 ms MUSE SYSTEM QTC Calculated (Bezet) 436 ms MUSE SYSTEM Calculated P [place] 57 degrees MUSE SYSTEM Calculated R [place] 54 degrees MUSE SYSTEM Calculated T [place] 50 degrees MUSE SYSTEM INTERPRETATION Sinus rhythm with frequent Premature ventricular complexes in a pattern of bigeminy Otherwise normal ECG Confirmed by MD Bello Douglas ([id number]) on 07/17/2017 2:06:02 PM MUSE SYSTEM 07/16/2017 4:46 PM EDT 07/17/2017 2:06 PM EDT Sriram Contreras MD ECG ORDERABLES Performing Organization Address [facility] Co de Phone Number MUSE SYSTEM * Magnesium (07/16/2017 4:00 AM EDT) Magnesium 0.82 0.69 - 1.07 mmol/L [facility] Blood specimen (specimen) Venous Draw / Unknown 07/16/2017 4:00 AM EDT 07/16/2017 4:18 AM EDT Narrative Resulting Agency Comment Spec In Lab Sriram Contreras MD CHEMISTRY ORDERABL ES [facility] [place] [address] * (ABNORMAL) Differential, Automated (07/16/2017 4:00 AM EDT) Pathologist [facility] Neutrophil % 81.3 % [facility] Neutrophil Absolute 8.31(H) 1.70 - 6.10 x10(3)/mc L [facility] Lymph % 10.7 % [facility] Lymphocytes Abs 1.1 0.9 - 3.2 x10(3)/mc L [facility] Monocyte % 6.8 % [facility] Monocyte Abs 0.7 0.3 - 0.9 x10(3)/mc L [facility] Eos % 0.3 % [facility] Eosinophils Abs 0.0 0.0 - 0.4 x10(3)/mc L [facility] Basophil % 0.4 % [facility] Baso Absolute 0.0 0.0 - 0.1 x10(3)/mc L [facility] Immature Gran % 0.50 % [facility] Comment: Immature granulocytes(IG's)percentage and absolute count will include metamyelocytes, myelocytes, and promyelocytes. Blood smears from CBCs yielding IG's will be scanned manually for concordance. If this scan disagrees with the automated IG or if promyelocytes are noted, a manual differential will be performed. Immature Gran Absolute 0.05(H) 0.00 - 0.04 x10(3)/mc L [facility] Blood specimen (specimen) 07/16/2017 4:00 AM EDT 07/16/2017 4:16 AM EDT Narrative Resulting Agency Comment Spec In Lab Sriram Contreras MD HEMATOLOGY ORDERAB LES [facility] [place] [address] * (ABNORMAL) Hemogram (07/16/2017 4:00 AM EDT) White Blood Cell 10.2(H) 4.0 - 9.5 x10(3)/mc L [facility] Red Blood Cell 3.95(L) 4.58 - 5.54 x10(6)/mc L [facility] Hemoglobin 12.4(L) 13.7 - 16.5 gm/dL [facility] Hematocrit 37.2(L) 40.5 - 48.5 % [facility] Mean Cell Volume 94.2(H) 82.9 - 93.1 fL [facility] Mean Cell Hemoglobin 31.4 27.5 - 32.1 pg [facility] Mean Cell Hemoglobin Concentration 33.3 32.0 - 35.7 gm/dL [facility] Platelet 126(L) 145 - 357 x10(3)/mc L [facility] RDW Standard Deviation 50.0(H) 36.0 - 45.0 fL [facility] RDW coefficient of variation 14.3(H) 11.4 - 13.8 % [facility] Mean Platelet Volume 10.3 7.6 - 12.9 fL [facility] NRBC% auto 0.0 % [facility] NRBC Absolute 0.000 0.000 - 0.000 x10(3)/mc L [facility] Blood specimen (specimen) 07/16/2017 4:00 AM EDT 07/16/2017 4:16 AM EDT Narrative Resulting Agency Comment Spec In Lab Sriram Contreras MD HEMATOLOGY ORDERAB LES [facility] [place] [address] * (ABNORMAL) Basic Metabolic Panel (non-fasting) (07/16/2017 4:00 AM EDT) Glucose 131 65 - 199 mg/dL [facility] Comment:Diabetes: >=200 mg/d L plus symptoms Blood Urea Nitrogen 16 10 - 20 mg/dL [facility] Creatinine 0.82 0.80 - 1.50 mg/dL [facility] Comment: Please note that the pediatric reference intervals supplied above were not validated at [facility]. Results from pediatric patients should be interpreted [...] 107 mmol/L [facility] Carbon Dioxide 21(L) 22 - 31 mmol/L [facility] Anion Gap 17(H) 5 - 15 mmol/L [facility] Calcium 8.1(L) 8.5 - 10.5 mg/dL [facility] Est Glomerular Filtration Rate >60 [...] the following links into your internet browser. [email or web address] Blood specimen (specimen) 07/16/2017 4:00 AM EDT 07/16/2017 4:16 AM EDT Narrative Resulting Agency Comment Spec In Lab Sriram Contreras MD CHEMISTRY ORDERABL ES Performing Organization Address [facility] Co de Phone Number [facility] [place] [address] * POCT Glucose (07/15/2017 12:26 PM EDT) Glucose, POC 75 65 - 199 mg/dL [facility] Comment: Supplemental ranges: <140 mg/dL before meals <180 mg/dL all other times of the day Blood specimen (specimen) 07/15/2017 12:26 PM EDT 07/15/2017 12:26 PM EDT Sriram Contreras MD POINT OF CARE TEST ORDERABLES Performing Organization Address [facility] Co de Phone Number [facility] [place] [address] * (ABNORMAL) Basic Metabolic Panel (non-fasting) (07/15/2017 10:20 AM EDT) Glucose 111 65 - 199 mg/dL [facility] Comment:Diabetes: >=200 mg/d L plus symptoms Blood Urea Nitrogen 19 10 - 20 mg/dL [facility] Creatinine 0.96 0.80 - 1.50 mg/dL [facility] Comment: Please note that the pediatric reference intervals supplied above were not validated at [facility]. Results from pediatric patients should be interpreted [...] 107 mmol/L [facility] Carbon Dioxide 22 22 - 31 mmol/L [facility] Anion Gap 14 5 - 15 mmol/L [facility] Calcium 8.2(L) 8.5 - 10.5 mg/dL [facility] Est Glomerular Filtration Rate >60 [...] the following links into your internet browser. [email or web address] Blood specimen (specimen) 07/15/2017 10:20 AM EDT 07/15/2017 10:24 AM EDT Narrative Resulting Agency Comment Spec In Lab Sriram Contreras MD CHEMISTRY ORDERABL ES Performing Organization Address [facility] Co de Phone Number [facility] [place] [address] * POCT Glucose (07/15/2017 8:30 AM EDT) Glucose, POC 111 65 - 199 mg/dL [facility] Comment: Supplemental ranges: <140 mg/dL before meals <180 mg/dL all other times of the day Blood specimen (specimen) 07/15/2017 8:30 AM EDT 07/15/2017 8:30 AM EDT Sriram Contreras MD POINT OF CARE TEST ORDERABLES Performing Organization Address City/[facility] Co de Phone Number [facility] [place] [address] * (ABNORMAL) BLOOD GAS 2 ARTERIAL (07/15/2017 4:17 AM EDT) pH, Arterial 7.38 7.35 - 7.45 [facility] PCO2, Arterial 42 35 - 45 mmHg [facility] PO2, Arterial 61(L) 85 - 104 mmHg [facility] Bicarbonate, Arterial 24.6 20.0 - 26.0 mmol/L [facility] Base Excess, Arterial -0.4 -3.0 - 3.0 mmol/L [facility] Hgb Blood Gas 14.0 13.7 - 16.5 gm/dL [facility] Oxyhemoglobin, Arterial 90.6(L) 94.0 - 97.0 % [facility] Carboxyhemoglob in, Arterial 0.2 % [facility] Comment: Nonsmokers: 0.5-1.5% COHB Smokers: Variable, but usually less than 10% Toxic: 20-30% COHB Lethal: Greater than 60% COHB Methemoglobin, Arterial 0.5 <=1.5 % [facility] Na Whole Blood 139 135 [...] [facility] FIO2 Art 35 % [facility] PF Ratio Art 174 [facility] Blood specimen (specimen) 07/15/2017 4:17 AM EDT 07/15/2017 4:17 AM EDT Sriram Contreras MD POINT OF CARE TEST ORDERABLES Performing Organization Address City/State/[facility] Co de Phone Number [facility] [place] [address] * (ABNORMAL) Differential, Automated (07/15/2017 4:15 AM EDT) Neutrophil % 84.7 % [facility] Neutrophil Absolute 12.39(H) 1.70 - 6.10 x10(3)/mc L [facility] Lymph % 6.2 % [facility] Lymphocytes Abs 0.9 0.9 - 3.2 x10(3)/mc L [facility] Monocyte % 8.0 % [facility] Monocyte Abs 1.2(H) 0.3 - 0.9 x10(3)/mc L [facility] Eos % 0.0 % [facility] Eosinophils Abs 0.0 0.0 - 0.4 x10(3)/mc L [facility] Basophil % 0.1 % [facility] Baso Absolute 0.0 0.0 - 0.1 x10(3)/mc L [place] [...] Absolute 0.14(H) 0.00 - 0.04 x10(3)/mc L [facility] Blood specimen (specimen) 07/15/2017 4:15 AM EDT 07/15/2017 4:28 AM EDT Narrative Resulting Agency Comment Spec In Lab Sriram Contreras MD HEMATOLOGY ORDERAB LES [facility] [place] [address] * (ABNORMAL) Hemogram (07/15/2017 4:15 AM EDT) White Blood Cell 14.6(H) 4.0 - 9.5 x10(3)/mc L [facility] Red Blood Cell 4.16(L) 4.58 - 5.54 x10(6)/mc L [facility] Hemoglobin 13.0(L) 13.7 - 16.5 gm/dL [facility] Hematocrit 38.9(L) 40.5 - 48.5 % [facility] Mean Cell Volume 93.5(H) 82.9 - 93.1 fL [facility] Mean Cell Hemoglobin 31.3 27.5 - 32.1 pg [facility] Mean Cell Hemoglobin Concentration 33.4 32.0 - 35.7 gm/dL [facility] Platelet 135(L) 145 - 357 x10(3)/mc L [facility] RDW Standard Deviation 48.8(H) 36.0 - 45.0 fL [facility] RDW coefficient of variation 14.2(H) 11.4 - 13.8 % [facility] Mean Platelet Volume 10.0 7.6 - 12.9 fL [facility] NRBC% auto 0.0 % [facility] NRBC Absolute 0.000 0.000 - 0.000 x10(3)/mc L [facility] Blood specimen (specimen) 07/15/2017 4:15 AM EDT 07/15/2017 4:28 AM EDT Narrative Resulting Agency Comment Spec In Lab Sriram Contreras MD HEMATOLOGY ORDERAB LES Performing Organization Address City/[facility]/ZIP Co de Phone Number [facility] [place] [address] * Potassium (07/14/2017 8:20 PM EDT) Potassium 4.4 3.5 - 5.0 mmol/L [place] [...] MD CHEMISTRY ORDERABL ES Performing Organization Address [facility] Co de Phone Number [facility] [place] [address] * (ABNORMAL) Magnesium (07/14/2017 8:20 PM EDT) Magnesium 1.08(H) 0.69 - 1.07 mmol/L [facility] Blood specimen (specimen) 07/14/2017 8:20 PM EDT 07/14/2017 8:31 PM EDT Narrative Resulting Agency Comment Spec In Lab Sriram Contreras MD CHEMISTRY ORDERABL ES Performing Organization Address [facility] Co de Phone Number [facility] [place] [address] * Magnesium (07/14/2017 4:30 PM EDT) Magnesium 0.86 0.69 - 1.07 mmol/L [facility] Blood specimen (specimen) 07/14/2017 4:30 PM EDT 07/14/2017 4:50 PM EDT Narrative Resulting Agency Comment Spec In Lab Sriram Contreras MD CHEMISTRY ORDERABL ES Performing Organization Address [facility] Co de Phone Number [facility] [place] [address] * POCT Glucose (07/14/2017 4:26 PM EDT) Glucose, POC 146 65 - 199 mg/dL [facility] Comment: Supplemental ranges: <140 mg/dL before meals <180 mg/dL all other times of the day Blood specimen (specimen) 07/14/2017 4:26 PM EDT 07/14/2017 4:26 PM EDT Sriram Contreras MD POINT OF CARE TEST ORDERABLES Performing Organization Address [facility] Co de Phone Number [facility] [place] [phone] * EKG 12 Lead (07/14/2017 12:37 PM EDT) Ventricular rate 67 BPM MUSE SYSTEM Atrial Rate 67 BPM MUSE SYSTEM P-R Interval 216 ms MUSE SYSTEM QRS Duration 100 ms MUSE SYSTEM Q-T Interval 438 ms MUSE SYSTEM QTC Calculated (Bezet) 462 ms MUSE SYSTEM Calculated P [place] 58 degrees MUSE SYSTEM Calculated R [place] 56 degrees MUSE SYSTEM Calculated T [place] 38 degrees MUSE SYSTEM INTERPRETATION Sinus rhythm with 1st degree A-V block Otherwise normal ECG When compared with ECG of 29-MAR-1997 12:50, AR interval has increased Confirmed by MD Radha, Daryl ([id number]) on 07/14/2017 5:07:22 PM MUSE SYSTEM 07/14/2017 12:3 7 PM EDT 07/14/2017 5:07 PM EDT Sriram Contreras MD ECG ORDERABLES Performing Organization Address City/[facility] Co de Phone Number MUSE SYSTEM * POCT Glucose (07/14/2017 12:05 PM EDT) Glucose, POC 147 65 - 199 mg/dL [facility] Comment: Supplemental ranges: <140 mg/dL before meals <180 mg/dL all other times of the day Blood specimen (specimen) 07/14/2017 12:05 PM EDT 07/14/2017 12:05 PM EDT Sriram Contreras MD POINT OF CARE TEST ORDERABLES [facility] [place] [address] * POCT Glucose (07/14/2017 8:25 AM EDT) Glucose, POC 140 65 - 199 mg/dL [facility] Comment: Supplemental ranges: <140 mg/dL before meals <180 mg/dL all other times of the day Blood specimen (specimen) 07/14/2017 8:25 AM EDT 07/14/2017 8:25 AM EDT Sriram Contreras MD POINT OF CARE TEST ORDERABLES Performing Organization Address [facility] Co de Phone Number [facility] [place] [address] * (ABNORMAL) Differential, Automated (07/14/2017 12:36 AM EDT) Pathologist [facility] Neutrophil % 90.3 % [facility] Neutrophil Absolute 13.17(H) 1.70 - 6.10 x10(3)/mc L [facility] Lymph % 3.8 % [facility] Lymphocytes Abs 0.6(L) 0.9 - 3.2 x10(3)/mc L [facility] Monocyte % 5.4 % [facility] Monocyte Abs 0.8 0.3 - 0.9 x10(3)/mc L [facility] Eos % 0.0 % [facility] Eosinophils Abs 0.0 0.0 - 0.4 x10(3)/mc L [facility] Basophil % 0.1 % [facility] Baso Absolute 0.0 0.0 - 0.1 x10(3)/mc L [facility] Immature Gran % 0.40 % [facility] Comment: Immature granulocytes(IG's)percentage and absolute count will include metamyelocytes, myelocytes, and promyelocytes. Blood smears from CBCs yielding IG's will be scanned manually for concordance. If this scan disagrees with the automated IG or if promyelocytes are noted, a manual differential will be performed. Immature Gran Absolute 0.06(H) 0.00 - 0.04 x10(3)/mc L [facility] Blood specimen (specimen) 07/14/2017 12:36 AM EDT 07/14/2017 12:41 AM EDT Narrative Resulting Agency Comment Spec In Lab Sriram Contreras MD HEMATOLOGY ORDERAB LES [facility] [place] [address] * (ABNORMAL) Hemogram (07/14/2017 12:36 AM EDT) White Blood Cell 14.6(H) 4.0 - 9.5 x10(3)/ L [facility] Red Blood Cell 4.57(L) 4.58 - 5.54 x10(6)/mc L [facility] Hemoglobin 14.1 13.7 - 16.5 gm/dL [facility] Hematocrit 42.1 40.5 - 48.5 % [facility] Mean Cell Volume 92.1 82.9 - 93.1 [facility] Mean Cell Hemoglobin 30.9 27.5 - 32.1 pg [facility] Mean Cell Hemoglobin Concentration 33.5 32.0 - 35.7 gm/dL [facility] Platelet 157 145 - 357 x10(3)/mc L [facility] RDW Standard Deviation 48.6(H) 36.0 - 45.0 [facility] RDW coefficient of variation 14.4(H) 11.4 - 13.8 % [facility] Mean Platelet Volume 10.2 7.6 - 12.9 [facility] NRBC% auto 0.0 % [facility] NRBC Absolute 0.000 0.000 - 0.000 x10(3)/mc L [facility] Blood specimen (specimen) 07/14/2017 12:36 AM EDT 07/14/2017 12:41 AM EDT Narrative Resulting Agency Comment Spec In Lab Sriram Contreras MD HEMATOLOGY ORDERAB LES Performing Organization Address [facility] de Phone Number [facility] [place] [address] * (ABNORMAL) Magnesium (07/14/2017 12:36 AM EDT) Magnesium 0.65(L) 0.69 - 1.07 mmol/L [facility] Blood specimen (specimen) 07/14/2017 12:36 AM EDT 07/14/2017 12:41 AM EDT Narrative Resulting Agency Comment Spec In Lab Sriram Contreras MD CHEMISTRY ORDERABL ES Performing Organization Address [facility] Phone Number [facility] [place] [address] * Phosphorus (07/14/2017 12:36 AM EDT) Phosphorus 3.3 2.5 - 4.5 mg/dL [facility] Blood specimen (specimen) 07/14/2017 12:36 AM EDT 07/14/2017 12:41 AM EDT Narrative Resulting Agency Comment Spec In Lab Sriram Contreras MD CHEMISTRY ORDERABL ES Performing Organization Address [facility] de Phone Number [facility] [place] [address] * Prealbumin (07/14/2017 12:36 AM EDT) Prealbumin 23 20 - 40 mg/dL [facility] Comment: Prealbumin levels are generally lower in the pediatric population; adult concentrations are usually attained near puberty. Blood specimen (specimen) 07/14/2017 12:36 AM EDT 07/14/2017 12:45 AM EDT Narrative Resulting Agency Comment Spec In Lab Sriram Contreras MD CHEMISTRY ORDERABL ES [facility] [place] [address] * (ABNORMAL) Basic Metabolic Panel (non-fasting) (07/14/2017 12:36 AM EDT) Glucose 161 65 - 199 mg/dL [facility] Comment:Diabetes: >=200 mg/d L plus symptoms Blood Urea Nitrogen 16 10 - 20 mg/dL [facility] Creatinine 0.97 0.80 - 1.50 mg/dL [facility] Comment: Please note that the pediatric reference intervals supplied above were not validated at [facility]. Results from pediatric patients should be interpreted [...] 107 mmol/L [facility] Carbon Dioxide 19(L) 22 - 31 mmol/L [facility] Anion Gap 17(H) 5 - 15 mmol/L [facility] Calcium 7.7(L) 8.5 - 10.5 mg/dL [facility] Est Glomerular Filtration Rate >60 [...] the following links into your internet browser. [email or web address] Blood specimen (specimen) 07/14/2017 12:36 AM EDT 07/14/2017 12:41 AM EDT Narrative Resulting Agency Comment Spec In Lab Sriram Contreras MD CHEMISTRY ORDERABL ES [facility] [place] [address] * (ABNORMAL) Basic Metabolic Panel (non-fasting) (07/13/2017 9:33 PM EDT) Glucose 147 65 - 199 mg/dL [facility] Comment:Diabetes: >=200 mg/d L plus symptoms Blood Urea Nitrogen 17 10 - 20 mg/dL [facility] Creatinine 1.16 0.80 - 1.50 mg/dL [facility] Comment: Please note that the pediatric reference intervals supplied above were not validated at [facility]. Results from pediatric patients should be interpreted [...] Carbon Dioxide 18(L) 22 - 31 mmol/L [facility] Anion Gap Not Calculated 5 - 15 mmol/L [facility] Calcium 7.3(L) 8.5 - 10.5 mg/dL [facility] Est Glomerular Filtration Rate >60 >=60 [facility] [...] the following links into your internet browser. [email or web address] Blood specimen (specimen) 07/13/2017 9:33 PM EDT 07/13/2017 9:41 PM EDT Narrative Resulting Agency Comment Spec In Lab Sriram Contreras MD CHEMISTRY ORDERABL ES [facility] [place] [address] * XR Chest PA or AP 1 [...] in the gastric body with no redundancy. Sriarm Contreras MD IMG DX ORDERABLES * Specimen to Pathology (surgical or derm) (07/13/2017 7:35 PM EDT) AP Specimen 07/13/2017 7:35 PM EDT 07/13/2017 7:35 PM EDT Narrative [facility] - 07/13/2017 7:35 PM EDT Specimen requisition ordered. ??Separate Pathology report to follow Sriram Contreras MD PATHOLOGY/CYTOLOGY ORDERABLES Performing Organization Address [facility] Co de Phone Number [facility] [place] [address] * Specimen to Pathology (surgical or derm) (07/13/2017 7:05 PM EDT) AP Specimen 07/13/2017 7:05 PM EDT 07/13/2017 7:05 PM EDT Narrative [facility] - 07/13/2017 7:05 PM EDT Specimen requisition ordered. ??Separate Pathology report to follow Sriram Contreras MD PATHOLOGY/CYTOLOGY ORDERABLES Performing Organization Address [facility]/[place] [address] * Specimen to Pathology (surgical or derm) (07/13/2017 6:21 PM EDT) AP Specimen 07/13/2017 6:21 PM EDT 07/13/2017 6:21 PM EDT Narrative [facility] - 07/13/2017 6:21 PM EDT Specimen requisition ordered. ??Separate Pathology report to follow Sriram Contreras MD PATHOLOGY/CYTOLOGY ORDERABLES Performing Organization Address [facility] [place] [address] * Specimen to Pathology (surgical or derm) (07/13/2017 5:30 PM EDT) AP Specimen 07/13/2017 5:30 PM EDT 07/13/2017 5:30 PM EDT Narrative [facility] - 07/13/2017 5:30 PM EDT Specimen requisition ordered. ??Separate Pathology report to follow Sriram Contreras MD PATHOLOGY/CYTOLOGY ORDERABLES Performing Organization Address [facility] [place] [address] * Specimen to Pathology (surgical or derm) (07/13/2017 5:30 PM EDT) AP Specimen 07/13/2017 5:30 PM EDT 07/13/2017 5:30 PM EDT [facility] - 07/13/2017 5:30 PM EDT Specimen requisition ordered. ??Separate Pathology report to follow Sriram Contreras MD PATHOLOGY/CYTOLOGY ORDERABLES Performing Organization Address [facility] [place] [address] * Specimen to Pathology (surgical or derm) (07/13/2017 5:30 PM EDT) AP Specimen 07/13/2017 5:30 PM EDT 07/13/2017 5:30 PM EDT [facility] - 07/13/2017 5:30 PM EDT Specimen requisition ordered. ??Separate Pathology report to follow Sriram Contreras MD PATHOLOGY/CYTOLOGY ORDERABLES [facility] [place] [address] * Specimen to Pathology (surgical or derm) (07/13/2017 5:30 PM EDT) AP Specimen 07/13/2017 5:30 PM EDT 07/13/2017 5:30 PM EDT Narrative [facility] - 07/13/2017 5:30 PM EDT Specimen requisition ordered. ??Separate Pathology report to follow Sriram Contreras MD PATHOLOGY/CYTOLOGY ORDERABLES Performing Organization Address City/[facility]/[place] [address] * Specimen to Pathology (surgical or derm) (07/13/2017 5:21 PM EDT) AP Specimen 07/13/2017 5:21 PM EDT 07/13/2017 5:21 PM EDT Narrative [facility] - 07/13/2017 5:21 PM EDT Specimen requisition ordered. ??Separate Pathology report to follow Sriram Contreras MD PATHOLOGY/CYTOLOGY ORDERABLES Performing Organization Address City/[facility]/ZIP Co de Phone Number [facility] [place] [address] * Specimen to Pathology (surgical or derm) (07/13/2017 5:21 PM EDT) AP Specimen 07/13/2017 5:21 PM EDT 07/13/2017 5:21 PM EDT [facility] - 07/13/2017 5:21 PM EDT Specimen requisition ordered. ??Separate Pathology report to follow Sriram Contreras MD PATHOLOGY/CYTOLOGY ORDERABLES Performing Organization Address City/[facility]/[place] [address] * Specimen to Pathology (surgical or derm) (07/13/2017 5:21 PM EDT) AP Specimen 07/13/2017 5:21 PM EDT 07/13/2017 5:21 PM EDT Narrative [facility] - 07/13/2017 5:21 PM EDT Specimen requisition ordered. ??Separate Pathology report to follow Sriram Contreras MD PATHOLOGY/CYTOLOGY ORDERABLES Performing Organization Address [facility] [place] [address] * Specimen to Pathology (surgical or derm) (07/13/2017 5:16 PM EDT) AP Specimen 07/13/2017 5:16 PM EDT 07/13/2017 5:16 PM EDT [facility] - 07/13/2017 5:16 PM EDT Specimen requisition ordered. ??Separate Pathology report to follow Sriram Contreras MD PATHOLOGY/CYTOLOGY ORDERABLES Performing Organization Address [facility] [place] [address] * Specimen to Pathology (surgical or derm) (07/13/2017 5:05 PM EDT) AP Specimen 07/13/2017 5:05 PM EDT 07/13/2017 5:05 PM EDT [facility] - 07/13/2017 5:05 PM EDT Specimen requisition ordered. ??Separate Pathology report to follow Sriram Contreras MD PATHOLOGY/CYTOLOGY ORDERABLES Performing Organization Address [facility] [place] [address] * Specimen to Pathology (surgical or derm) (07/13/2017 5:05 PM EDT) AP Specimen 07/13/2017 5:05 PM EDT 07/13/2017 5:05 PM EDT [facility] - 07/13/2017 5:05 PM EDT Specimen requisition ordered. ??Separate Pathology report to follow Sriram Contreras MD PATHOLOGY/[place] [address] * Specimen to Pathology (surgical or derm) (07/13/2017 4:39 PM EDT) AP Specimen 07/13/2017 4:39 PM EDT 07/13/2017 4:39 PM EDT Narrative [facility] - 07/13/2017 4:39 PM EDT Specimen requisition ordered. ??Separate Pathology report to follow Sriram Contreras MD PATHOLOGY/CYTOLOGY ORDERABLES Performing Organization Address City/[facility]/[place] [address] * Specimen to Pathology (surgical or derm) (07/13/2017 4:35 PM EDT) AP Specimen 07/13/2017 4:35 PM EDT 07/13/2017 4:35 PM EDT Narrative [facility] [facility] - 07/13/2017 4:35 PM EDT Specimen requisition ordered. ??Separate Pathology report to follow Sriram Contreras MD PATHOLOGY/CYTOLOGY ORDERABLES Performing Organization Address City/[facility]/[place] [address] * Specimen to Pathology (surgical or derm) (07/13/2017 4:35 PM EDT) AP Specimen 07/13/2017 4:35 PM EDT 07/13/2017 4:35 PM EDT [facility] - 07/13/2017 4:35 PM EDT Specimen requisition ordered. ??Separate Pathology report to follow Sriram Contreras MD PATHOLOGY/CYTOLOGY ORDERABLES Performing Organization Address [facility] [place] [address] * Specimen to Pathology (surgical or derm) (07/13/2017 3:52 PM EDT) AP Specimen 07/13/2017 3:52 PM EDT 07/13/2017 3:52 PM EDT Narrative [facility] - 07/13/2017 3:52 PM EDT Specimen requisition ordered. ??Separate Pathology report to follow Sriram Contreras MD PATHOLOGY/CYTOLOGY ORDERABLES Performing Organization Address [facility] [place] [address] * Specimen to Pathology (surgical or derm) (07/13/2017 3:52 PM EDT) AP Specimen 07/13/2017 3:52 PM EDT 07/13/2017 3:52 PM EDT Narrative [facility] - 07/13/2017 3:52 PM EDT Specimen requisition ordered. ??Separate Pathology report to follow Sriram Contreras MD PATHOLOGY/CYTOLOGY ORDERABLES Performing Organization Address [facility] [place] [address] * (ABNORMAL) BLOOD GAS 2 ARTERIAL (07/13/2017 3:46 PM EDT) pH, Arterial 7.31(L) 7.35 - 7.45 [facility] PCO2, Arterial 37 35 - 45 mmHg [facility] PO2, Arterial 103 85 - 104 mmHg [facility] Bicarbonate, Arterial 17.8(L) 20.0 - 26.0 mmol/L [facility] Base Excess, Arterial -8.5(L) -3.0 - 3.0 mmol/L [facility] Hgb Blood Gas 15.1 13.7 - 16.5 gm/dL [facility] Oxyhemoglobin, Arterial 96.6 94.0 - 97.0 % [facility] Carboxyhemoglob in, Arterial 0.4 % [facility] Comment: Nonsmokers: 0.5-1.5% COHB Smokers: Variable, but usually less than 10% Toxic: 20-30% COHB Lethal: Greater than 60% COHB Methemoglobin, Arterial 0.3 <=1.5 % [facility] Na Whole Blood 139 135 [...] OF CARE TEST ORDERABLES Performing Organization Address City/State/[facility] Co de Phone Number [facility] [place] [address] * (ABNORMAL) BLOOD GAS 2 ARTERIAL (07/13/2017 2:06 PM EDT) pH, Arterial 7.32(L) 7.35 - 7.45 [facility] PCO2, Arterial 32(L) 35 - 45 mmHg [facility] PO2, Arterial 96 85 - 104 mmHg [facility] Bicarbonate, Arterial 16.0(L) 20.0 - 26.0 mmol/L [facility] Base Excess, Arterial -10.1(L) -3.0 - 3.0 mmol/L [facility] Hgb Blood Gas 14.0 13.7 - 16.5 gm/dL [facility] Oxyhemoglobin, Arterial 96.1 94.0 - 97.0 % [facility] Carboxyhemoglob in, Arterial 1.1 % [facility] Comment: Nonsmokers: 0.5-1.5% COHB Smokers: Variable, but usually less than 10% Toxic: 20-30% COHB Lethal: Greater than 60% COHB Methemoglobin, Arterial 0.3 <=1.5 % [facility] Na Whole Blood 139 135 [...] TEST ORDERABLES [facility] [place] [address] * (ABNORMAL) Comprehensive metabolic panel (non-fasting) (07/13/2017 12:56 PM EDT) Glucose 155 65 - 199 mg/dL [facility] Comment:Diabetes: >=200 mg/d L plus symptoms Blood Urea Nitrogen 17 10 - 20 mg/dL [facility] Creatinine 1.06 0.80 - 1.50 mg/dL [facility] Comment: Please note that the pediatric reference intervals supplied above were not validated at [facility]. Results from pediatric patients should be interpreted [...] 107 mmol/L [facility] Carbon Dioxide 20(L) 22 - 31 mmol/L [facility] Anion Gap 14 5 - 15 mmol/L [facility] Calcium 7.9(L) 8.5 - 10.5 mg/dL [facility] Protein, Total 6.2 6.1 - 8.0 gm/dL [facility] Albumin 3.6 3.2 - 5.2 gm/dL [facility] Aspartate Aminotransferase 15 0 - 39 unit/L [facility] Alanine Aminotransferase 13 0 - 55 unit/L [facility] Alkaline Phosphatase 70 40 - 120 unit/L [facility] Bilirubin, Total 0.2 0.2 - 1.3 mg/dL [facility] Est Glomerular Filtration Rate >60 >=60 [facility] [...] the following links into your internet browser. [email or web address] Blood specimen (specimen) 07/13/2017 12:56 PM EDT 07/13/2017 1:02 PM EDT Narrative Resulting Agency Comment Spec In Lab Sriram Contreras MD CHEMISTRY ORDERABL ES [facility] [place] [address] * (ABNORMAL) BLOOD GAS 2 ARTERIAL (07/13/2017 12:15 PM EDT) pH, Arterial 7.34(L) 7.35 - 7.45 [facility] PCO2, Arterial 39 35 - 45 mmHg [facility] PO2, Arterial 68(L) 85 - 104 mmHg [facility] Bicarbonate, Arterial 20.4 20.0 - 26.0 mmol/L [facility] Base Excess, Arterial -5.4(L) -3.0 - 3.0 mmol/L [facility] Hgb Blood Gas 15.8 13.7 - 16.5 gm/dL [facility] Oxyhemoglobin, Arterial 91.8(L) 94.0 - 97.0 % [facility] Carboxyhemoglob in, Arterial 0.9 % [facility] Comment: Nonsmokers: 0.5-1.5% COHB Smokers: Variable, but usually less than 10% Toxic: 20-30% COHB Lethal: Greater than 60% COHB Methemoglobin, Arterial 0.3 <=1.5 % [facility] Na Whole Blood 138 135 [...] TEST ORDERABLES [facility] [place] [address] * Surgical Pathology Report (07/13/2017 12:04 PM EDT) Final Diagnosis [id number] ? Location: ICUS; IC14; A The signing [...] iglottic): Green ??Right epiglottis: Blue ??Lateral pharynx: [place] ??Base of tongue mucosa + deep: Blue [...] edge; (6) tumor to closest lateral pharynx ([place]) and deep specimen edges (black); (7) tumor [...] studies, if any. 07/21/2017 9:57 AM EDT [facility] MOUTH REGION STRUCTURE / Unknown [...] Contreras MD PATHOLOGY/CYTOLOGY ORDERABLES Performing Organization Address City/[facility]/ZIP [place] [address] * Specimen to Pathology (surgical or derm) (07/13/2017 12:02 PM EDT) AP Specimen 07/13/2017 12:0 2 PM EDT 07/13/2017 12:02 PM EDT Narrative [facility] - 07/13/2017 12:02 PM EDT Specimen requisition ordered. ??Separate Pathology report to follow Sriram Contreras MD PATHOLOGY/CYTOLOGY ORDERABLES Performing Organization Address City/[facility] [place] [address] * (ABNORMAL) BLOOD GAS 2 ARTERIAL (07/13/2017 10:35 AM EDT) pH, Arterial 7.31(L) 7.35 - 7.45 [facility] PCO2, Arterial 45 35 - 45 mmHg [facility] PO2, Arterial 87 85 - 104 mmHg [facility] Bicarbonate, Arterial 22.2 20.0 - 26.0 mmol/L [facility] Base Excess, Arterial -4.0(L) -3.0 - 3.0 mmol/L [facility] Hgb Blood Gas 15.6 13.7 - 16.5 gm/dL [facility] Oxyhemoglobin, Arterial 95.0 94.0 - 97.0 % [facility] Carboxyhemoglob in, Arterial 0.9 % [facility] Comment: Nonsmokers: 0.5-1.5% COHB Smokers: Variable, but usually less than 10% Toxic: 20-30% COHB Lethal: Greater than 60% COHB Methemoglobin, Arterial 0.0 <=1.5 % [facility] Na Whole Blood 138 135 [...] OF CARE TEST ORDERABLES Performing Organization Address City/[facility]/ZIP Co de Phone Number [facility] [place] [address] * ABORH Recheck Status (07/13/2017 6:27 AM EDT) ABORH Recheck Order Order Placed [facility] ABORH Type Recheck Complete [facility] Blood specimen (specimen) 07/13/2017 6:27 AM EDT 07/13/2017 6:38 AM EDT Narrative Resulting Agency Comment Spec In Lab Sriram Contreras MD BLOOD BANK LAB ORD ERABLES Performing Organization Address City/[facility]/ZIP Co de Phone Number [facility] [place] [address] * Antibody screen (07/13/2017 6:27 AM EDT) Ab Screen Interp Negative [facility] Expires at 2359 on: 07/16/2017 [facility] Blood specimen (specimen) 07/13/2017 6:27 AM EDT 07/13/2017 6:43 AM EDT Narrative Resulting Agency Comment Spec In Lab Sriram Contreras MD BLOOD BANK LAB ORD ERABLES Performing Organization Address City/[facility]/ZIP Co de Phone Number [facility] [place] [address] * ABO/Rh Typing (07/13/2017 6:27 AM EDT) ABORH Type O Neg [facility] Blood specimen (specimen) 07/13/2017 6:27 AM EDT 07/13/2017 6:43 AM EDT Narrative Resulting Agency Comment Spec In Lab Sriram Contreras MD BLOOD BANK LAB ORD ERABLES Performing Organization Address City/[facility] Co de Phone Number [facility] [place] [address] documented in this encounter Visit Diagnoses Not [...] 0923 (See Alternative - Provider: Radha Colon, BRENNA) pantoprazole (PROTONIX) tablet 40 mg(Linked Group 1) [...] Embolism documented in this encounter Care Teams Infrastructure Manager Relationship Specialty Start Date End Date Jovon Sifuentes MD [address] [place] [address] PCP - General 09/30/10 09/10/21 documented as of this encounter
--- OUTSIDE RECORDS SUMMARY | 2024-09-01 14:13 | XMS_ITS | Encounter Summary ---
[place] [address] Care Team Providers Care Legislative Director Name Role Phone Jovon Sifuentes MD Primary Care Provider [phone] Reason for Visit * Auth/Cert Specialty Diagnoses / Procedures Referred By Huma t Referred To Contact Diagnoses base of tongue cancer Procedures PRO LARYNGOSCOPY, DIRECT, DX, OP MICROSCOP PRO BIOPSY OROPHARYNX LARYNGOSCOPY, WITH MICROSCOPE (WRVU 2.57) BIOPSY, OROPHARYNX (WRVU 1.44) Referral ID Status Reason Start Date Expiration Date Visits Re quested Visits Authorized [id number] 1 1 Encounter Details Date Type Department Care Team (Late st Contact Info) Description 05/24/2017 8:58 AM EDT - 05/24/2017 10:26 AM EDT Surgery [place] [address] Keiko Madera MD [facility] [place] [address] LARYNGOSCOPY, MICROSCOPE, WITH BIOPSY (WRVU 3.55) Social [...] the next week, call the clinic at [phone] to confirm your appointment, or for questions [...] Contact Information ENT triage nurse ENT doctor television installer [phone] (after hours) documented in this encounter Medications [...] Madera MD - 05/24/2017 10:22 AM EDT [facility] Operative Note Patient Name: Jose Bee : [id number] MR#: [id number] Case Date: 05/24/2017 Surgeon: Surgeon(s) and Role: [...] 10:20 AM EST Office [place] [address] Sriram Contreras MD [facility] [place] [address] 10/31/2024 1:30 PM EST Office Visit Hematology/Oncology at [address] [phone] Dmitry Bhatti MD [facility] DR HEMATOLOGY [place] [address] Ellen Mcrae APRN [facility] [place] [address] 10/31/2024 2:00 PM EST Infusion Hematology Oncology at [address] [phone] documented as of this encounter [...] AM EDT 05/24/2017 10:09 AM EDT Narrative [facility] - 05/24/2017 10:09 AM EDT Specimen requisition ordered. ??Separate Pathology report to follow Keiko Madera MD PATHOLOGY/CYTOLOGY ORDERABLES Performing Organization Address City/[facility]/ZIP Co de Phone Number [facility] [place] [address] * Specimen to Pathology (surgical or derm) (05/24/2017 10:09 AM EDT) AP Specimen 05/24/2017 10:0 9 AM EDT 05/24/2017 10:09 AM EDT Narrative [facility] - 05/24/2017 10:09 AM EDT Specimen requisition ordered. ??Separate Pathology report to follow Keiko Madera MD PATHOLOGY/CYTOLOGY ORDERABLES Performing Organization Address [facility]/[place] [address] * Specimen to Pathology (surgical or derm) (05/24/2017 10:08 AM EDT) AP Specimen 05/24/2017 10:0 8 AM EDT 05/24/2017 10:08 AM EDT Narrative [facility] - 05/24/2017 10:08 AM EDT Specimen requisition ordered. ??Separate Pathology report to follow Keiko Madera MD PATHOLOGY/CYTOLOGY ORDERABLES Performing Organization Address City/[facility]/[place] [address] * Specimen to Pathology (surgical or derm) (05/24/2017 10:08 AM EDT) AP Specimen 05/24/2017 10:0 8 AM EDT 05/24/2017 10:08 AM EDT Narrative [facility] - 05/24/2017 10:08 AM EDT Specimen requisition ordered. ??Separate Pathology report to follow Keiko Madera MD PATHOLOGY/CYTOLOGY ORDERABLES Performing Organization Address [facility] [place] [address] * Specimen to Pathology (surgical or derm) (05/24/2017 10:08 AM EDT) AP Specimen 05/24/2017 10:0 8 AM EDT 05/24/2017 10:08 AM EDT Narrative [facility] - 05/24/2017 10:08 AM EDT Specimen requisition ordered. ??Separate Pathology report to follow Keiko Madera MD PATHOLOGY/CYTOLOGY ORDERABLES Performing Organization Address City/[facility]/[place] [address] * Specimen to Pathology (surgical or derm) (05/24/2017 10:08 AM EDT) AP Specimen 05/24/2017 10:0 8 AM EDT 05/24/2017 10:08 AM EDT Narrative [facility] - 05/24/2017 10:08 AM EDT Specimen requisition ordered. ??Separate Pathology report to follow Keiko Madera MD PATHOLOGY/CYTOLOGY ORDERABLES Performing Organization Address City/[facility]/ZIP Co de Phone Number [facility] [place] [address] * Specimen to Pathology (surgical or derm) (05/24/2017 10:08 AM EDT) AP Specimen 05/24/2017 10:0 8 AM EDT 05/24/2017 10:08 AM EDT Narrative [facility] - 05/24/2017 10:08 AM EDT Specimen requisition ordered. ??Separate Pathology report to follow Keiko Madera MD PATHOLOGY/[place] [address] * Surgical Pathology Report (05/24/2017 10:07 AM EDT) Final Diagnosis [id number] ?Location: [facility]; A The [...] developed and its performance determined by the [facility] laboratory for Clinical Genomics and Advanced Technology (CGAT). It has not been cleared or approved by the U.S. Food and Drug Administration. This test is used for clinical purposes and should not be considered as investigational or for research purposes. The [facility] is certified by the Clinical Laboratory Improvement Act of 1988 and as such is allowed to perform high complexity clinical testing. References: ?? Ila TW, Diego . Biochemistry 1991;30:5963-5161; Cash NEWTONM, et al. J pathol 1999;189:12-19; [place] PE, et al. J Clin Microbiol 2000 ?;38 ??:357-361. Reviewed by: Roel Heredia, PhD, [facility], Director-[facility] ([facility], 06/04/17 08:23) Electronically signed [...] Sections/Processing: (T1) ??sns 06/07/2017 9:24 AM EDT [facility] BILATERAL PALATINE TONSILS / Unknown [...] Madera MD PATHOLOGY/CYTOLOGY ORDERABLES Performing Organization Address City/State/[facility] Co de Phone Number [facility] [place] [address] * Surgical Pathology Report (05/24/2017 10:07 AM EDT) Surgical Pathology Report [id number] ?Location: [facility]; A The [...] ??Soft, red tissues . Sections/Processing: (T1) ??sns [facility] 05/24/2017 10:0 7 AM EDT Keiko Madera MD PATHOLOGY/CYTOLOGY ORDERABLES [facility] [place] [address] documented in this encounter Visit Diagnoses Not [...] MD) documented in this encounter Care Teams Legislative Director Relationship Specialty Start Date End Date Jovon Sifuentes MD [address] [place] [address] PCP - General 09/30/10 09/10/21 documented as of this encounter
--- OUTSIDE RECORDS SUMMARY | 2024-09-01 14:13 | XMS_ITS | Encounter Summary ---
Author Organization [facility] [place] [address] Care Team Providers Care Diesel Tractor Engine Mechanic Name Role Phone Jovon Sifuentes MD Primary Care Provider Reason for Referral * Diagnostic Test (Routine) - Closed Specialty Diagnoses / Procedures Referred By Huma t Referred To Contact Radiology Diagnoses Other acute pulmonary embolism without acute cor pulmonale Carcinoma of base of tongue Procedures PET CT Standard Skull Base to Mid-Thigh Kaiden Dos Santos MD [facility] [place] [address] [place] [address] Referral ID Status Reason Start Date Expiration Date V isits Requested Visits Authorized [id number] Closed Specialty Service Requested 06/10/2017 08/08/2017 2 2 Reason for Visit * Reason Comments Schedule Office Case * Consultation (Routine) - Specialty Diagnoses / Procedures Referred By Huma t Referred To Contact Hematology and Oncology Diagnoses Cancer of base of tongue Zafar Madera MD [facility] [place] [address] [facility] [address] [place] [address] Referral ID Status Reason Start Date Expiration Date V isits Requested Visits Authorized [id number] Consult, Test & Treat 04/27/2017 04/27/2018 1 1 Encounter Details Date Type Department Care Team (Late st Contact Info) Description 06/03/2017 10:00 AM EDT Office Visit [facility] Oncology at [facility] [place] [address] Kaiden Dos Santos MD [address] [place] [address] [place] [address] Other acute pulmonary embolism without acute cor [...] the past few months.He presented to the [facility] with these throat symptoms as well as a more global problem of malaise, low-grade fevers, and cough; he was seen by Dr. Conrad in [facility] in March, where fullness in the right tongue base was noted. He was started on antibiotics, but simultaneously was found by CT scan to have right lower lobe pulmonary embolus and possible pneumonia, as well as atrial fibrillation. He was placed on anticoagulation; Dr. oCnrad had planned on performing an exam under [...] about myocardial function Geographic issues: Lives in [facility]; the [facility] would be much more convenient for treatment [...] education: 17 Occupational History ??? 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 He is to [place] for 40 yrs. 4 children - All live in different states - [place]. Enjoys raising Beef Cattle and doing Civil War and Living History and shoot Black powder/Antique firearms. He enjoys builiding Firearms/Blacksmithing - [place]coal, [place], etc. No family history on file. Outpatient [...] cancer, and the patient with a distant 79-[id number]-gbvu smoking history. This would give him a [...] Kaiden Dos Santos MD, FACP Hematology/Oncology Section [phone] Voice recognition software used for this note; please excuse battery container tester errors. documented in this encounter Plan of Treatment Upcoming Encounters Date Type Department Care Team (Late st Contact Info) Description 09/18/2024 10:20 AM EST Office Visit [place] [address] Sriram Contreras MD [facility] [place] [address] 10/31/2024 1:30 PM EST Office Visit Hematology/Oncology at [address] [phone] Dmitry Bhatti MD [facility] [place] [address] Ellen Mcrae APRN [facility] [place] [place] [address] 10/31/2024 2:00 PM EST Infusion Hematology Oncology at [address] [phone] documented as of this encounter Results * [...] Thank you for referring this patient to [facility]. I have personally reviewed the image(s) and the residents interpretation and agree with the findings, Lizy Padgett at 06/17/2017 3:54 PM Narrative 06/17/2017 3:54 PM EDT EXAMINATION: PET CT STANDARD SKULL BASE TO MID-THIGH CLINICAL HISTORY: head/neck cancer, initial staging exam TECHNIQUE: Following IV injection of 16-hlzgcw-0-deoxyglucose (FDG) a standard uptake of approximately 60 [...] staging exam TECHNIQUE: Following IV injection of 19-ksnheb-7-deoxyglucose (FDG) astandard uptake of approximately 60 minutes, [...] Thank you for referring this patient to [facility]. I have [...] tongue documented in this encounter Care Teams Diesel Tractor Engine Mechanic Relationship Specialty Start Date End Date Jovon Sifuentes MD [address] [place] [address] PCP - General 09/30/10 09/10/21 documented as of this encounter
--- OUTSIDE RECORDS SUMMARY | 2024-09-01 14:13 | XMS_ITS | Encounter Summary ---
[place] [address] Care Team Providers Care Seed Mill Superintendent Name Role Phone Jovon Sifuentes MD Primary Care Provider [phone] Encounter Details Date Type Department Care Team (Late st Contact Info) Description 06/21/2017 Telephone [place] [phone] Rhianna Page RN Social History Tobacco Use [...] Notes * Telephone Encounter - Rhianna Page, BRENNA - 06/21/2017 9:33 AM EDT Patient [...] 10:20 AM EST Office [place] [address] Sriram Contreras MD [facility] [place] [address] 10/31/2024 1:30 PM EST Office Visit Hematology/Oncology at [address] [phone] Dmitry Bhatti MD [facility] DR HEMATOLOGY [place] [address] Ellen Mcrae APRN [facility] [place] [address] 10/31/2024 2:00 PM EST Infusion Hematology Oncology at [address] [phone] documented as of this encounter Visit Diagnoses Not on filedocumented in this encounter Care Teams Seed Mill Superintendent Relationship Specialty Start Date End Date Jovon Sifuentes MD [address] [place] [address] PCP - General 09/30/10 09/10/21 documented as of this encounter
--- OUTSIDE RECORDS SUMMARY | 2024-09-01 14:13 | XMS_ITS | Encounter Summary ---
[place] [address] Care Team Providers Care Insurance Loss Assessor Name Role Phone Jovon Sifuentes MD Primary Care Provider [phone] Encounter Details Date Type Department Care Team (Latest Contact Info) Description 06/18/2017 Multidisciplinary Ca re Committee [place] [address] Kaiden Dos Santos MD [address] [place] [address] [place] [address] Social History Tobacco Use Types Packs/Day Years [...] 10:20 AM EST Office [place] [address] Sriram Contreras MD [facility] [place] [address] 10/31/2024 1:30 PM EST Office Visit Hematology/Oncology at [address] [phone] Dmitry Bhatti MD [facility] HEMATOLOGY [place] [address] Ellen Mcrae APRN [facility] [place] [address] 10/31/2024 2:00 PM EST Infusion Hematology Oncology at [address] [phone] documented as of this encounter Visit Diagnoses Not on filedocumented in this encounter Care Teams Insurance Loss Assessor Relationship Specialty Start Date End Date Jovon Sifuentes MD [address] [place] [address] PCP - General 09/30/10 09/10/21 documented as of this encounter
--- OUTSIDE RECORDS SUMMARY | 2024-09-01 14:13 | XMS_ITS | Encounter Summary ---
[place] [address] Care Team Providers Care Swimming Pool Maintenance Supervisor Name Role Phone Jovon Sifuentes MD Primary Care Provider Encounter Details Date Type Department Care Team (Late st Contact Info) Description 06/21/2017 Telephone [place] [phone] Tremayne De León Social History Tobacco Use [...] 10:20 AM EST Office [place] [phone] Sriram Contreras MD [facility] [place] [address] 10/31/2024 1:30 PM EST Office Visit Hematology/Oncology at [address] [phone] Dmitry Bhatti MD [facility] DR [place] [address] Ellen Mcrae APRN [facility] [place] [place] [address] 10/31/2024 2:00 PM EST Infusion Hematology Oncology at [address] [phone] documented as of this encounter Visit Diagnoses Not on filedocumented in this encounter Care Teams Swimming Pool Maintenance Supervisor Relationship Specialty Start Date End Date Jovon Sifuentes MD [address] [place] [address] PCP - General 09/30/10 09/10/21 documented as of this encounter
--- OUTSIDE RECORDS SUMMARY | 2024-09-01 14:13 | XMS_ITS | Encounter Summary ---
[place] [address] Care Team Providers Care Prop Sawyer Name Role Phone Jovon Sifuentes MD Primary Care Provider [phone] Reason for Visit * Reason Comments Follow Up Surgery Laryngoscopy w/biops y 05/24/17 Encounter Details Date Type Department Care Team (Late st Contact Info) Description 06/03/2017 2:20 PM EDT Office [place] [address] Zafar Madera MD [facility] [place] [address] Tonsil cancer Social History Tobacco Use Types [...] Date ??? ACHILLES TENDON SURGERY [place] [facility] [place] KNEE ARTHROSCOPY christelle. [facility] ??? PRO BIOPSY OROPHARYNX N/A 05/24/2017 BIOPSY, OROPHARYNX (WRVU 1.44) performed by Zafar Madera MD at [facility] MAIN OR ??? PRO LARYNGOSCOPY, DIRCT, OP SCOPE, BIOPSY N/A 05/24/2017 LARYNGOSCOPY, MICROSCOPE, WITH BIOPSY (WRVU 3.55) performed by Zafar Madera MD at [facility] MAIN OR ??? 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 He is to Briana for 40 yrs. 4 children - All live in different states - T[place] Wang Enjoys raising Beef Cattle and doing Civil War and Living History and shoot Black powder/Antique firearms. He enjoys builiding Firearms/Blacksmithing - [place]coal, [employer] [place], etc. Review of Systems Objective: Physical Exam [...] 10:20 AM EST Office [place] [address] Sriram Contreras MD [facility] [place] [address] 10/31/2024 1:30 PM EST Office Visit Hematology/Oncology at [address] [phone] Dmitry Bhatti MD [facility] [place] [address] Ellen Mcrae APRN [facility] [place] [address] 10/31/2024 2:00 PM EST Infusion Hematology Oncology at [address] [phone] documented as of this encounter Visit Diagnoses Diagnosis Tonsil cancer Malignant neoplasm of tonsil documented in this encounter Care Teams Prop Sawyer Relationship Specialty Start Date End Date Jovon Sifuentes MD [address] [place] [address] PCP - General 09/30/10 09/10/21 documented as of this encounter
--- OUTSIDE RECORDS SUMMARY | 2024-09-01 14:13 | XMS_ITS | Encounter Summary ---
[place] [address] Care Team Providers Care Automobile Carpets Molder Name Role Phone Jovon Sifuentes MD Primary Care Provider [phone] Reason for Visit * Auth/Cert Specialty Diagnoses / Procedures Referred By Contbela t Referred To Contact Diagnoses base of tongue cancer Procedures PRO LARYNGOSCOPY, DIRECT, DX, OP MICROSCOP PRO BIOPSY OROPHARYNX LARYNGOSCOPY, WITH MICROSCOPE (WRVU 2.57) BIOPSY, OROPHARYNX (WRVU 1.44) Referral ID Status Reason Start Date Expiration Date Visits Re quested Visits Authorized [id number] 1 1 Encounter Details Date Type Department Care Team (Latest Contact Info) Description 05/24/2017 7:17 AM EDT - 05/24/2017 12:45 PM EDT Hospital En[place] [address] Keiko Madera MD [facility] [address] Discharge Disposition: Home Social History Tobacco Use [...] the next week, call the clinic at [phone] to confirm your appointment, or for questions [...] Contact Information ENT triage nurse ENT doctor photogrammetric compilation specialist [phone] (after hours) documented in this encounter Medications [...] Madera MD - 05/24/2017 10:22 AM EDT [facility] Operative Note Patient Name: Jose Bee : [id number] MR#: [id number] Case Date: 05/24/2017 Surgeon: Surgeon(s) and Role: [...] 10:20 AM EST Office [place] [address] Sriram Contreras MD [facility] [place] [address] 10/31/2024 1:30 PM EST Office Visit Hematology/Oncology at [address] [phone] Dmitry Bhatti MD [facility] DR [place] [address] Ellen Mcrae APRN [facility] [place] [address] 10/31/2024 2:00 PM EST Infusion Hematology Oncology at [address] [phone] documented as of this encounter Procedures Procedure [...] AM EDT 05/24/2017 10:09 AM EDT Narrative [facility] - 05/24/2017 10:09 AM EDT Specimen requisition ordered. ??Separate Pathology report to follow Keiko Madera MD PATHOLOGY/[place] [address] * Specimen to Pathology (surgical or derm) (05/24/2017 10:09 AM EDT) AP Specimen 05/24/2017 10:0 9 AM EDT 05/24/2017 10:09 AM EDT Narrative [facility] - 05/24/2017 10:09 AM EDT Specimen requisition ordered. ??Separate Pathology report to follow Keiko Madera MD PATHOLOGY/CYTOLOGY ORDERABLES Performing Organization Address City/[facility]/[place] [address] * Specimen to Pathology (surgical or derm) (05/24/2017 10:08 AM EDT) AP Specimen 05/24/2017 10:0 8 AM EDT 05/24/2017 10:08 AM EDT Narrative [facility] - 05/24/2017 10:08 AM EDT Specimen requisition ordered. ??Separate Pathology report to follow Keiko Madera MD PATHOLOGY/CYTOLOGY ORDERABLES Performing Organization Address City/[facility]/[place] [address] * Specimen to Pathology (surgical or derm) (05/24/2017 10:08 AM EDT) AP Specimen 05/24/2017 10:0 8 AM EDT 05/24/2017 10:08 AM EDT Narrative [facility] - 05/24/2017 10:08 AM EDT Specimen requisition ordered. ??Separate Pathology report to follow Keiko Madera MD PATHOLOGY/CYTOLOGY ORDERABLES Performing Organization Address [facility] [place] [address] * Specimen to Pathology (surgical or derm) (05/24/2017 10:08 AM EDT) AP Specimen 05/24/2017 10:0 8 AM EDT 05/24/2017 10:08 AM EDT Narrative [facility] - 05/24/2017 10:08 AM EDT Specimen requisition ordered. ??Separate Pathology report to follow Keiko Madera MD PATHOLOGY/CYTOLOGY ORDERABLES Performing Organization Address City/[facility]/[place] [address] * Specimen to Pathology (surgical or derm) (05/24/2017 10:08 AM EDT) AP Specimen 05/24/2017 10:0 8 AM EDT 05/24/2017 10:08 AM EDT [facility] - 05/24/2017 10:08 AM EDT Specimen requisition ordered. ??Separate Pathology report to follow Keiko Madera MD PATHOLOGY/CYTOLOGY ORDERABLES Performing Organization Address City/[facility]/ZIP Co de Phone Number [facility] [place] [address] * Specimen to Pathology (surgical or derm) (05/24/2017 10:08 AM EDT) AP Specimen 05/24/2017 10:0 8 AM EDT 05/24/2017 10:08 AM EDT Narrative [facility] - 05/24/2017 10:08 AM EDT Specimen requisition ordered. ??Separate Pathology report to follow Keiko Madera MD PATHOLOGY/[place] [address] * Surgical Pathology Report (05/24/2017 10:07 AM EDT) Final Diagnosis [id number] ?Location: [facility]; A The signing pathologist has [...] developed and its performance determined by the [facility] laboratory for Clinical Genomics and Advanced Technology (CGAT). It has not been cleared or approved by the U.S. Food and Drug Administration. This test is used for clinical purposes and should not be considered as investigational or for research purposes. The [facility] is certified by the Clinical Laboratory Improvement Act of 1988 and as such is allowed to perform high complexity clinical testing. References: ?? Ila TW, Diego . Biochemistry 1991;30:1273-4867; Cash NEWTONM, et al. J pathol 1999;189:12-19; [place] PE, et al. J Clin Microbiol 2000 ?;38 ??:357-361. Reviewed by: Roel Heredia, PhD, [facility], Director-[facility] ([facility], 06/04/17 08:23) Electronically signed by: ??Mey [...] Sections/Processing: (T1) ??sns 06/07/2017 9:24 AM EDT [facility] BILATERAL PALATINE TONSILS / Unknown 05/24/2017 [...] Madera MD PATHOLOGY/CYTOLOGY ORDERABLES Performing Organization Address City/State/[facility] Co de Phone Number [facility] [place] [address] * Surgical Pathology Report (05/24/2017 10:07 AM EDT) Surgical Pathology Report [id number] ?Location: [facility]; A The signing pathologist has [...] ??Soft, red tissues . Sections/Processing: (T1) ??sns [facility] 05/24/2017 10:0 7 AM EDT Keiko Madera MD PATHOLOGY/CYTOLOGY ORDERABLES [facility] [place] [address] documented in this encounter Visit Diagnoses Not [...] MD) documented in this encounter Care Teams Automobile Carpets Molder Relationship Specialty Start Date End Date Jovon Sifuentes MD [address] [place] [address] PCP - General 09/30/10 09/10/21 documented as of this encounter
--- OUTSIDE RECORDS SUMMARY | 2024-09-01 14:13 | XMS_ITS | Encounter Summary ---
[place] [address] Care Team Providers Care Talent Acquisition Director Name Role Phone Jovon Sifuentes MD Primary Care Provider Encounter Details Date Type Department Care Team (Latest Contact Info) Description 06/02/2017 Multidisciplinary Ca re Committee Hematology [place] [address] Kaiden Dos Santos MD [address] [place] [address] [place] [address] Social History Tobacco Use Types Packs/Day Years [...] 10:20 AM EST Office Visit [place] [address] Sriram Contreras MD [facility] [place] [address] 10/31/2024 1:30 PM EST Office Visit Hematology/Oncology at [address] [phone] Dmitry Bhatti MD [facility] HEMATOLOGY [place] [address] Ellen Mcrae APRN [facility] [place] [address] 10/31/2024 2:00 PM EST Infusion Hematology Oncology at [address] [phone] documented as of this encounter Visit Diagnoses Not on filedocumented in this encounter Care Teams Talent Acquisition Director Relationship Specialty Start Date End Date Jovon Sifuentes MD [address] [place] [address] PCP - General 09/30/10 09/10/21 documented as of this encounter
--- OUTSIDE RECORDS SUMMARY | 2024-09-01 14:13 | XMS_ITS | Encounter Summary ---
Author Organization [facility] [place] [address] Care Team Providers Care Production Supervisor Off Shift Name Role Phone Jovon Sifuentes MD Primary Care Provider Encounter Details Date Type Department Care Team (Late st Contact Info) Description 06/28/2017 Telephone [place] [address] Sriram Contreras MD [facility] [place] [address] Social History Tobacco Use Types Packs/Day Years [...] 10:20 AM EST Office [place] [address] Sriram Contreras MD [facility] [place] [address] 10/31/2024 1:30 PM EST Office Visit Hematology/Oncology at [address] [phone] Dmitry Bhatti MD [facility] DR HEMATOLOGY [place] [address] Ellen Mcrae APRN [facility] [place] [address] 10/31/2024 2:00 PM EST Infusion Hematology Oncology at [address] [phone] documented as of this encounter Visit Diagnoses Not on filedocumented in this encounter Care Teams Production Supervisor Off Shift Relationship Specialty Start Date End Date Jovon Sifuentes MD [address] [place] [address] PCP - General 09/30/10 09/10/21 documented as of this encounter
--- OUTSIDE RECORDS SUMMARY | 2024-09-01 14:13 | XMS_ITS | Encounter Summary ---
Author Organization [facility] [place] [address] Care Team Providers Care Footwear Sales Associate Name Role Phone Jovon Sifuentes MD Primary Care Provider [phone] Reason for Visit * Auth/Cert Specialty Diagnoses / Procedures Referred By Contac t Referred To Contact Diagnoses base of tongue cancer Procedures PRO LARYNGOSCOPY, DIRECT, DX, OP MICROSCOP PRO BIOPSY OROPHARYNX LARYNGOSCOPY, WITH MICROSCOPE (WRVU 2.57) BIOPSY, OROPHARYNX (WRVU 1.44) Referral ID Status Reason Start Date Expiration Date Visits Re quested Visits Authorized [id number] 1 1 Encounter Details Date Type Department Care Team (Late st Contact Info) Description 05/24/2017 9:28 AM EDT Anesthesia Event [place] [address] Brock Tang MD [facility] [place] [address] Joselito Hill MD [facility] [place] [address] Anesthesia Record Procedure Summary Procedure Name Responsible [...] 0836; metacarpal vein (top of hand), right; poll-[id number]-xujwtt catheter system; 20 gauge, 1 in length; [...] Tang MD - 05/24/2017 10:51 AM EDT [facility] Department of Anesthesiology Post-procedure Note Patient: Jose Bee Procedure Summary Date Anesthesia Start Anesthesia Stop Room / Location 05/24/17927 [facility] Procedure Diagnosis Surgeon Responsible Provider LARYNGOSCOPY, MICROSCOPE, WITH BIOPSY (WRVU 3.55) (N/A Throat); BIOPSY, OROPHARYNX (WRVU 1.44) (N/AMouth) (base of tongue cancer) Zafar Madera MD [place], Ryan C, MD All Anesthesia Providers: Anesthesiologist: Brock Tang MD Heat Treater Helper: Joselito Hill MD Last (1hr) Vitals: BP (!) 128/92 (05/24/17 1032) Temp 35.9 ??C (96.6 ??F) (05/24/17 1032) Pulse 80 (05/24/17 1032) Resp 16 (05/24/17 1032) SpO2 96 % (05/24/17 1032) Patient [facility] Level of Consciousness: Awake and Alert Pain [...] fibrillation March 2017: noted in ED in [facility]. Previously noted to be paroxysmal. No awareness. CHADS2-VASc=1 (age). Started on apixaban for PE ??? Acute pulmonary embolism March 2017: noted on CT in [facility]. RLL. Treated with apixaban ??? Benign prostatic hyperplasia ??? Lesion of tongue 2008: globus evaluation 2016: mass at base of right tongue noted in [facility]. Scheduled for bx. Delayed by development of [...] AM EST Office Visit [place] [address] Sriram Contreras MD [facility] [place] [address] 10/31/2024 1:30 PM EST Office Visit Hematology/Oncology at [address] [phone] Dmitry Bhatti MD [facility] [place] [address] Ellen Mcrae APRN [facility] [place] [address] 10/31/2024 2:00 PM EST Infusion Hematology Oncology at [address] [phone] documented as of this encounter Visit Diagnoses [...] mg documented in this encounter Care Teams Footwear Sales Associate Relationship Specialty Start Date End Date Jovon Sifuentes MD [address] [place] [address] PCP - General 09/30/10 09/10/21 documented as of this encounter
--- OUTSIDE RECORDS SUMMARY | 2024-09-01 14:13 | XMS_ITS | Encounter Summary ---
Author Organization [facility] [place] [address] Care Team Providers Care Trade Show Specialist Name Role Phone Jovon Sifuentes MD Primary Care Provider [phone] Reason for Visit * Auth/Cert Specialty Diagnoses [...] Expiration Date Visits Re quested Visits Authorized [id number] 1 1 Encounter Details Date Type Department Care Team (Late st Contact Info) Description 07/13/2017 7:30 AM EDT - 07/13/2017 3:58 PM EDT [facility] [place] [phone] Sriram Contreras MD [facility] [place] [address] PHARYNGECTOMY, LIMITED (WRVU 19.13) Social History Tobacco [...] staging exam TECHNIQUE: Following IV injection of 87-mctucl-1-deoxyglucose (FDG) a standard uptake of approximately 60 [...] -You can reach the ENT clinic at [phone] for appointment questions. -The ENT triage nurse is available at [phone] -For urgent issues during evenings and weekends the ENT resident wigs salesperson can be reached through [facility] rotary kiln operator at [phone] Follow Up: You will need to follow [...] Geovanna Deleon MD Hematology and Oncology at [place] [phone] General Instructions None __ Primary Care Doctor: Jovon Sifuentes MD [phone] Signed: Celso Mejía MD 07/29/2017 documented in [...] -You can reach the ENT clinic at [phone] for appointment questions. -The ENT triage nurse is available at [phone] -For urgent issues during evenings and weekends the ENT resident wigs salesperson can be reached through [facility] rotary kiln operator at [phone] Follow Up: You will need to follow [...] Geovanna Deleon MD Hematology and Oncology at [place] [phone] documented in this encounter Medications at Time [...] att. providers found Jose Bee discharged to [facility] by private car with Spouse. All belongings sent with patient. DONNA removed, incision healing well, no significant drainage, no dehiscence, no significant erythema, skin free from pressure ulcers. Discharge instructions given to . Report called to Vidhi at [facility] @ 1340. * Alexus Soler RN - 07/29/2017 11:38 AM EDT Patient accepts bed at [facility]. Spoke with Patient and in regards to transportation. will provide transportation to [facility]. Adrienne Soler RN Care Management * Lexy Scott - 07/29/2017 10:57 AM EDT Office of Care Management/Glass Beveller Patient Name: Jose Bee : 1950 Patient has been offered a Nursing Home Facility bed at [facility]. The patient will be transported by private transportation. No MD to MD report necessary Please call Nursing Report to , ask for Vidhi. Info to accompany patient: Narcotic Prescriptions Copies of Medication Administration Records and IV sheets for past 10 days. Plan: Glass Beveller will be available to the patient and Sys Dir-RN and/or Social Workerfor further assistance. Patient will be discharged to: [facility] [address] [facility] [address] [place] [address] Lexy M Snow, Glass Beveller * Luana Henry RN - 07/29/2017 7:00 AM EDT Patient arrived via bed to rm 514, oob sitting in chair. Aox4, calling . Denies pain. Plan for discharge today pending bed. 1 assist to bathroom. Voids with out difficulty. Rayle to floor and call srinivasan system. Would like to take a shower and have his CPAP cleaned. Will report to oncoming RN/CONCEPCION. * Kayley Chris RCP - 07/29/2017 4:40 AM EDT Patient was compliant with home CPAP usage tonight. * Anay Diallo RN - 07/28/2017 3:40 PM EDT Sys Dir Follow Up Note Patient plan of care discussed in multidisciplinary rounds. Met with patient and to assess continuing care and discharge needs. Continues to require hospitalization for Head and neck cancer. Discharge plan to snf when medically ready. Sys Dir to follow with team and family to assist with discharge needs when patient ready for discharge. Anay Diallo RN Case Management for [facility] pgr [phone] * Celso Mejía [...] Mejía MD, PGY1 07/28/17 7:05 AM Pager: [phone] * Anay Diallo RN - 07/27/2017 2:44 PM EDT Based on discussions with the multi-disciplinary healthcare team, the patient would benefit from skilled level of care at discharge. ?? I have met with the patient/distribution sales representative to discuss discharge planning needs. I have provided the [facility], Office of Care Management letter from the Mailroom Coordinator pertaining to rehab referrals. I have also provided a letter describing our affiliations within the [facility] and educated them about their right to choose where referrals are placed. ?? I reviewed the different levels of rehab including SNF, swing, acute and LTAC with the patient/distribution sales representative. ?? The patient/distribution sales representative has been provided a list of facilities within their preferred geographic area. ?? I have requested that the patient/distribution sales representative provide at least three choices for referral. ?? The patient/distribution sales representative have requested referrals to: 1. [facility] ?? PHONE: [phone] FAX: [phone].. 2. [facility] [address] [place] [address] ?? 3. [facility] ([facility]) [address] [place] [address] ? Expected date of discharge: TBD Note routed to Glass Beveller who will communicate referrals to facilities and [...] Mejía MD, PGY1 07/27/17 7:01 AM Pager: [phone] * Collette Schultz - 07/26/2017 8:21 PM EDT Zach Encounter Note Patient Name: Jose Bee : [id number] MR#: [id number] Admit Date: 07/13/2017 6:04 AM Hospital Day 13 days Narrative: Attempted return visit - pt sleeping. Time in Direct Care: 0 min. Collette Schultz 07/26/2017 * Collette Schultz - 07/26/2017 3:00 PM EDT Zach Encounter Note Patient Name: Jose Bee : [id number] MR#: [id number] Admit Date: 07/13/2017 6:04 AM Hospital Day 13 days Narrative: Walking Dragline Oiler visit per Consult Order Assessment: Pt spoke [...] Diallo RN - 07/26/2017 2:30 PM EDT Sys Dir Follow Up Note Patient plan of care discussed in multidisciplinary rounds. Met with patient to assess continuing care and discharge needs. Continues to require hospitalization for Head and neck cancer. Discharge plan uncertain at this time. Sys Dir to follow with team and family to assist with discharge needs when patient ready for discharge. Anay Diallo RN Case Management for [facility] pgr [phone] * Briana Goel RN - 07/26/2017 2:29 PM EDT [facility] Interventional Radiology ? Interventional Radiology Nursing [...] patient's provider, ENT Service Dr. Jackie Mejía #[phone] , regarding above. Paged, callback # provided [...] lb 2.5 oz). Admit Wt: 133.36 kg Caret body weight: 90.4 kg Type of access: [...] vitamins and minerals. Assessment: Estimated Nutrition Needs: 9269-0082 calories (20-25 kcal/kg IBW) 135-160 grams protein (1.5-2.0 g/kg IBW) Patient is out of the ICU and out on the floor. Tube feedings need adjustment as pt is no longer onpropofol. Appears tube feedings are still medically indicated given pt is s/p swallow eval and INVENTORY CONTROL SUPERVISOR recommends continuation of dobhoff TF for [...] Mejía MD, PGY1 07/26/17 9:01 AM Pager: [phone] * Calista Peralta RT - 07/26/2017 12:27 [...] 7.44 7.41 7.42 PO2ART 67* 60* 78* [id number] 39 37 39 BEART 1.2 -2.0 0.3 [...] 7.44 7.41 7.42 PO2ART 67* 60* 78* [id number] 39 37 39 BEART 1.2 -2.0 0.3 [...] MD, FAAP Pediatric Otolaryngology [facility] ([facility]) [facility] * Beena Saini RCP - 07/24/2017 [...] 07/23/2017 3:50 PM EDT Office of Care Management(OCM)/Sys Dir(CM) Service: ENT Pt remains intubated at this [...] get appropriate choices after recs are made. Sys Dir Roc Valdez RN, BSN Pager #[phone] * Sony Oliva MD - 07/23/2017 11:31 [...] 07/23/2017 No results found for: PHART, PO2ART, KVO4PZO ASSESSMENT, MANAGEMENT, and DECISION MAKING: potential for [...] LEAST ONE OF THESE DX to USE 56864 ARDS Stupor Hypoxemic Resp Failure (Fi02>50%) Delirium [...] and examined on critical care rounds. Jose eBe is a 66 y.o. male with the [...] LEAST ONE OF THESE DX to USE 16648 ARDS Stupor Hypoxemic Resp Failure (Fi02>50%) Delirium [...] to reach the patient's provider, Red 1 [phone], regarding above. Monitor weight. Jose Bee is a 66 y.o. male Principal Problem: Head and neck cancer Active Problems: Pulmonary embolism Overview: Recurrent. Atrial fibrillation Overview: March 2017: noted in ED in [facility]. Previously noted to be paroxysmal. No [...] LEAST ONE OF THESE DX to USE 06601 ARDS Stupor Hypoxemic Resp Failure (Fi02>50%) Delirium [...] PGY2 07/20/17 7:21 AM * Kaiden Gorman, [facility] - 07/20/2017 4:35 AM EDT AMV Protocol: [...] LEAST ONE OF THESE DX to USE 35467 ARDS Stupor Hypoxemic Resp Failure (Fi02>50%) Delirium [...] plan. Lakeshia Mckeon MD * Jeannie Jewell, [facility] - 07/17/2017 7:24 PM EDT 07/17/17 1923 [...] Jr, MD, PGY2 07/17/17 8:21 PM Pager: [phone] (For daytime 6AM - 6PM) Please contact on-call night ENT quality assurance intern for issues between 6PM - 6AM [...] the need arise fora surgical airway. - [facility] vent protocol - HOB 30 degrees [...] kg (294 lb). Admit Weight: 133.36 kg Caret Body Weight: 90.3 kg I/O last 1 [...] service. Nutrition to follow. * Lillian Pardo, INVENTORY CONTROL SUPERVISOR - 07/16/2017 1:48 PM EDT Speech-Language Pathology Initial Consult ?? Order received and acknowledged. Records reviewed and pt and RN contacted. Pt remains intubated at this time. Assessment deferred at this time. Please re- consult after pt successfully extubated. ?? Lillian Pardo MA CCC-INVENTORY CONTROL SUPERVISOR Inpatient Rehabilitation Medicine pager:# [phone] * Salazar Bhagat MD - 07/16/2017 11:57 [...] need arise for a surgical airway. - [facility] vent protocol - HOB 30 degrees [...] Martino MD, PGY1 07/16/17 9:12 AM Pager: [phone] (For daytime 6AM - 6PM) Please contact on-call night ENT quality assurance intern for issues between 6PM - 6AM * Supa Sharif, CARD ROOM MANAGER - 07/15/2017 8:15 PM EDT AMV Protocol: [...] need arise for a surgical airway. - [facility] vent protocol - Dexamethasone x3 doses [...] Martino MD, PGY1 07/15/17 7:06 AM Pager: [phone] (For daytime 6AM - 6PM) Please contact on-call night ENT quality assurance intern for issues between 6PM - 6AM * Supa Sharif, [facility] - 07/14/2017 9:40 PM EDT AMV Protocol: [...] ?? Pulm: nasally intubated, difficult airway - [facility] vent protocol - Dexamethasone x3 doses [...] MD 07/14/2017 6:47 PM * Adam Montana, [facility] - 07/14/2017 2:03 PM EDT AMV Protocol: [...] Martino MD, PGY1 07/14/17 9:38 AM Pager: [phone] (For daytime 6AM - 6PM) Please contact on-call night ENT quality assurance intern for issues between 6PM - 6AM [...] of this encounter: 133.4 kg (294 lb). Caret Body Weight: 90.3 kg I/O last 1 [...] shelli, and medical team aware. * Emma Bronwe RN - 07/14/2017 5:29 AM EDT OUTCOME [...] ??? ACHILLES TENDON SURGERY Right 1996 [facility] ??? KNEE ARTHROSCOPY christelle. [facility] ??? PRO BIOPSY OROPHARYNX N/A 05/24/2017 BIOPSY, OROPHARYNX (WRVU 1.44) performed by Zafar Madera MD at [facility] OR ??? PRO LARYNGOSCOPY, DIRCT, OP SCOPE, BIOPSY N/A 05/24/2017 LARYNGOSCOPY, MICROSCOPE, WITH BIOPSY (WRVU 3.55) performed by Zafar Madera MD at [facility] OR ??? QUADRACEPS TENDON REPAIR Right 04/2016 [facility] ??? TONSILLECTOMY Allergies: Allergies Allergen Reactions [...] 17 Occupational History ??? 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 He is to Briana for 40 yrs. 4 children - All live in different states - [place] Enjoys raising Beef Cattle and doing Civil War and Living History and shoot Black powder/Antique firearms. He enjoys builiding Firearms/Blacksmithing - Charcoal, Mason, etc. Review of Systems: Not obtained due [...] - currently stable Pulm: nasally intubated - [facility] vent protocol GI: DHT - Diet: [...] this case performed under IRB Protocol Study [id number] (Improving throat cancer surgical outcomes through intra-operative [...] to the planned procedure. Hand Hygiene: The maintenance and repair worker did perform hand hygiene prior to arterial [...] failure Location of Procedure: ICU [facility]. Risks and Benefits: The risks [...] * Plan of Care - Sriram Thompson INVENTORY CONTROL SUPERVISOR - 07/29/2017 9:56 AM EDT Problem: Patient [...] RECOMMENDATIONS: ?? Continue dysphagia soft diet and Braggs-thick liquids. ?? Upright to feed. ?? Small bites/sips. ?? Medications crushed in applesauce. Sriram Thompson MS [facility]-INVENTORY CONTROL SUPERVISOR Speech-Language Pathologist Rehabilitation Medicine Pager - [phone] Problem: Acute Rehab Services Goal & Intervention [...] Anticipated Discharge Disposition: inpatient rehabilitation facility Pager: [phone] OTONIEL JOSHUA OT 07/28/2017 Occupational Therapy Rehabilitation [...] * Plan of Care - Sriram Thompson, INVENTORY CONTROL SUPERVISOR - 07/28/2017 2:18 PM EDT Problem: [...] documentation. RECOMMENDATIONS: ?? Dysphagia soft diet and Braggs-thick liquids. ?? Upright to feed. ?? Small bites / sips. ?? Crush medications in applesauce when possible. Sriram Thompson MS [facility]-INVENTORY CONTROL SUPERVISOR Speech-Language Pathologist Rehabilitation Medicine Pager - [phone] Problem: Acute Rehab Services Goal & Intervention [...] PO intake. Awaiting plan for [facility]C [facility] jail facility. INDIVIDUALIZED FALL PREVENTION INTERVENTIONS: Patient-specific fall [...] Anticipated Discharge Disposition: inpatient rehabilitation facility Pager: [phone] CRISTIAN NELSON, PT 07/27/2017 Physical Therapy Rehabilitation [...] sit/sit to supine -- Bed Mobility Goal, [place] Level independent -- Bed Mobility Goal, Outcome Achieved -- goal ongoing Goal: Gait Training Goal Stand Alone Therapy Goal Outcome: Ongoing (Interventions Implemented as Appropriate) 07/26/17 1329 07/27/17 1230 Gait Training Goal Gait Training Goal, Date Established 07/26/17 -- Gait Training Goal, Time to Achieve 30 days -- Gait Training Goal, [place] Level supervision required -- Gait Training Goal, [...] days -- Transfer Training Goal, Activity Type nns-fw-zeycj/lyfxx-qt-udq;swp-bv-sdnew/gxoqe-vv-hqc -- Transfer Train Goal, [place] Level supervision required -- Transfer Training Goal, Assist Device walker, rolling -- Transfer Training Goal, Outcome -- goal ongoing * Plan of Care - Sriram Thompson, INVENTORY CONTROL SUPERVISOR - 07/27/2017 10:59 AM EDT Problem: [...] Crush medications in applesauce. Sriram Thompson MS [facility]-INVENTORY CONTROL SUPERVISOR Speech-Language Pathologist Rehabilitation Medicine Pager - [phone] Problem: Acute Rehab Services Goal & Intervention [...] PLAN MOVING FORWARD: -PEG tube. -IV abx -INVENTORY CONTROL SUPERVISOR consult. -hep gtt. INDIVIDUALIZED FALL PREVENTION [...] Pt appeared anxious and frustrated this morning. Walking Dragline Oiler consulted and talked with patient today. During a transfer to the [facility] it was determinedthat tube feeding was leaking [...] Anticipated Discharge Disposition: inpatient rehabilitation facility Pager: [phone] OTONIEL JOSHUA OT 07/26/2017 Occupational Therapy Rehabilitation [...] Anticipated Discharge Disposition: inpatient rehabilitation facility Pager: [phone] CRISTIAN NELSON, PT 07/26/2017 Physical Therapy Rehabilitation [...] to sit/sit to supine Bed Mobility Goal, [place] Level independent Goal: Gait Training Goal Stand Alone Therapy Goal Outcome: Ongoing (Interventions Implemented as Appropriate) 07/26/17 1329 Gait Training Goal Gait Training Goal, Date Established 07/26/17 Gait Training Goal, Time to Achieve 30 days Gait Training Goal, [place] Level supervision required Gait Training Goal, Assist [...] 30 days Transfer Training Goal, Activity Type ilr-ia-iutkn/tolzn-gg-nwv;vuh-lb-uffxi/qeajq-ue-dbj Transfer Train Goal, [place] Level supervision required Transfer Training Goal, Assist [...] Afib (CHADS-VASc of 1) who presented to [facility] for radical neck dissection on 07/13/17. We [...] ??? ACHILLES TENDON SURGERY Right 1996 [facility] ??? KNEE ARTHROSCOPY christelle. [facility] ??? PRO BIOPSY OROPHARYNX N/A 05/24/2017 BIOPSY, OROPHARYNX (WRVU 1.44) performed by Zafar Madera MD at [facility] OR ??? PRO LARYNGOSCOPY, DIRCT, OP SCOPE, BIOPSY N/A 05/24/2017 LARYNGOSCOPY, MICROSCOPE, WITH BIOPSY (WRVU 3.55) performed by Zafar Madera MD at [facility] OR ??? PRO LARYNGOSCOPY, DIRECT, DX, OP MICROSCOP N/A 07/16/2017 LARYNGOSCOPY, WITH MICROSCOPE (WRVU 2.57) performed by Sriram Contreras MD at [facility] OR ??? PRO PART EXC TONGUE, UNILAT RAD NECK Right 07/13/2017 @GLOSSECTOMY, PARTIAL,WITH UNILATERAL RADICAL NECK DISSECTION (WRVU 30.14) performed by Sriram Contreras MD at [facility] ??? PRO PARTIAL REMOVAL OF PHARYNX N/A 07/13/2017 PHARYNGECTOMY, LIMITED (WRVU 19.13) performed by Sriram Contreras MD at [facility] ??? PRO UNLISTED PROCEDURE LARYNX N/A 07/13/2017 LARYNGOSCOPY, MICRO, LASER EXCISION (WRVU 12.14) performed by Sriram Contreras MD at [facility] ??? QUADRACEPS TENDON REPAIR Right 04/2016 [facility] ??? TONSILLECTOMY FAMILY HISTORY No family history on file. No family history of VTE SOCIAL HISTORY Social History Social History ??? Marital status: Spouse name: Briana ??? Number of children: 4 ??? 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 He is to Briana for 40 yrs. 4 children - All live in different states - One Kathleen Enjoys raising Beef Cattle and doing Civil War and Living History and shoot Black powder/Antique firearms. He enjoys builiding Firearms/Blacksmithing - Charcoal, Mason, etc. PHYSICAL EXAMINATION Most Recent Vitals: 07/26/17 [...] and thrombosis clinic Felice Harvey MD Pager [phone] Heme-Onc Fellow ?? HEMATOLOGY STAFF ADDENDUM I [...] Deanna Menjivar MD Hematology Staff physician, Pager: [phone] 07/26/17 * Plan of Care - Sriram Thompson, INVENTORY CONTROL SUPERVISOR - 07/26/2017 9:33 AM EDT Problem: [...] degrees at all times. Sriram Thompson MS [facility]-INVENTORY CONTROL SUPERVISOR Speech-Language Pathologist Rehabilitation Medicine Pager - [phone] Problem: Acute Rehab Services Goal & Intervention [...] Bee was transferred from the ICU to [facility] at approximately 1430 on 07/25/17. At the [...] per order. PLAN MOVING FORWARD: Transfer to [facility] INDIVIDUALIZED FALL PREVENTION INTERVENTIONS: Patient-specific [...] am. PLAN MOVING FORWARD: Extubate, transfer to [facility] when able INDIVIDUALIZED FALL PREVENTION [...] Outcome: Ongoing (Interventions Implemented as Appropriate) 07/15/17 6304 Skin Integrity Impairment, Risk/Actual Skin Integrity Impairment, [...] MOVING FORWARD: Extubate this am, transfer to [facility] when able INDIVIDUALIZED FALL PREVENTION [...] OUTCOME EVALUATION: * Plan of Care - Del Dios, Suzie A, RN - 07/18/2017 7:03 PM [...] RN or CONCEPCION Surveillance [continuous indirect monitoring]: [place] ICU monitor Patient-specific fall prevention interventions for [...] Contreras MD - 07/16/2017 12:[address] [facility] Operative Note Patient Name: Jose Bee : [id number] MR#: [id number] Case Date: 07/16/2017 Surgeon: Surgeon(s) and Role: [...] monitoring required during toileting and ADLs]: RN, ASBESTOS SIDING MECHANIC and RT Surveillance [continuous indirect monitoring]: Monitor [...] Contreras MD - 07/15/2017 4:[address] [facility] Operative Note Patient Name: Jose Bee : [id number] MR#: [id number] Case Date: 07/13/2017 Surgeon: Surgeon(s) and Role: * Sriram Contreras MD - Primary * Selvin Kaye MD - Resident-Customer Service Clerk * Hilton Cheney PA - Physician Payroll Supervisor Preoperative diagnosis: Right tongue base cancer Postoperative [...] completed, we then registered the patient using [employer] electromagnetic registration to the intraoperative imaging that [...] making law. Any patient receiving care at [facility] must abide by ID law. The hierarchy [...] (i) The agent with financial power of commercial litigation attorney or a conservator appointed in accordance [...] Insurance: MEDICARE A & B Secondary Insurance: [employer] [facility] Prescription Coverage: yes. Preferred Pharmacy: [facility] in [place], [place]. Other: none. Primary Care Provider: Jovon Sifuentes MD [phone] Patient/Caregiver Goals of Treatment: plan being determined at this time. Likely home health at [place]. Potential Needs for Transition of Care: Rehab/SNF: tbd. Home Health: tbd. DME: none previously required. Dialysis: N/A Community Resources: none. Transportation: spouse will provide. Other: none. Anticipated Barriers to Discharge/Special Considerations: no barriers identified at this time. Plan: a member of the Care Management team will continue to monitor progress, follow for continuityof care and assist with transition of care planning. Sys Dir Roc Valdez RN, BSN Pager #[phone] documented in this encounter Plan of Treatment Upcoming Encounters Date Type Department Care Team (Late st Contact Info) Description 09/18/2024 10:20 AM EST Office Visit [place] [phone] Sriram Contreras MD [facility] [place] [address] 10/31/2024 1:30 PM EST Office Visit Hematology/Oncology at [address] [phone] Dmitry Bhatti MD [facility] HEMATOLOGY [place] [address] Ellen Mcrae APRN [facility] [place] [address] 10/31/2024 2:00 PM EST Infusion Hematology Oncology at [address] [phone] documented as of this encounter Procedures Procedure Name Priority Date/Time Associated Diagnosis Comments STAPLE CUTTER SCAN 07/30/2017 12:00 AM EDT HEMOGRAM Routine [...] Routine 07/17/2017 10:34 AM EDT CARDIAC ENZYMES ([facility]) STAT 07/17/2017 5:42 AM EDT HEMOGRAM Routine 07/17/2017 12:30 AM EDT DIFFERENTIAL, AUTOMATED Routine 07/17/2017 12:30 AM EDT CARDIAC ENZYMES ([facility]) STAT 07/17/2017 12:30 AM EDT CBC (WITH DIFF) Routine 07/17/2017 12:30 AM EDT BASIC METABOLIC PANEL Routine 07/17/2017 12:30 AM EDT ENDOTRACHEAL TUBE POSITION CHANGE STAT 07/16/2017 5:51 PM EDT XR CHEST ONE VIEW STAT 07/16/2017 5:2 4 PM EDT CARDIAC ENZYMES ([facility]) STAT 07/16/2017 5:10 PM EDT EKG 12-LEAD [...] EDT TYPE AND SCREEN, SDP (FUTURE SURGERY, [facility] SAME DAY PROGRAM ONLY) STAT 07/13/2017 6:27 AM EDT ABO/RH TYPING STAT 07/13/2017 6:27 AM EDT ANTIBODY SCREEN STAT 07/13/2017 6:27 AM EDT documented in this encounter Results * SCAN DOC: STAPLE CUTTER (07/30/2017 12:00 AM EDT) Anatomical Region Laterality Modality Other Narrative 07/30/2017 12:00 AM EDT Ordered by an unspecified provider. Scanning Provider MEDIA MGR SCAN EXT O RDR/RSLT * (ABNORMAL) Differential, Automated (07/29/2017 3:41 AM EDT) Neutrophil % 59.9 % [facility] Neutrophil Absolute 4.48 1.70 - 6.10 x10(3)/mc L [facility] Lymph % 26.0 % [facility] Lymphocytes Abs 2.0 0.9 - 3.2 x10(3)/mc L [facility] Monocyte % 10.0 % [facility] Monocyte Abs 0.8 0.3 - 0.9 x10(3)/[facility] Eos % 2.1 % [facility] Eosinophils Abs 0.2 0.0 - 0.4 x10(3)/[facility] Basophil % 0.7 % [facility] Baso Absolute 0.0 0.0 - 0.1 x10(3)/[facility] Immature Gran % 1.30 % [facility] Comment: Immature granulocytes(IG's)percentage and absolute count will include metamyelocytes, myelocytes, and promyelocytes. Blood smears from CBCs yielding IG's will be scanned manually for concordance. If this scan disagrees with the automated IG or if promyelocytes are noted, a manual differential will be performed. Immature Gran Absolute 0.10(H) 0.00 - 0.04 x10(3)/[facility] Blood specimen (specimen) 07/29/2017 3:41 AM EDT 07/29/2017 3:58 AM EDT Narrative Resulting Agency Comment Spec In Lab Sriram Contreras MD HEMATOLOGY ORDERAB LES [facility] [place] [address] * (ABNORMAL) Hemogram (07/29/2017 3:41 AM EDT) White Blood Cell 7.5 4.0 - 9.5 x10(3)/[facility] Red Blood Cell 4.14(L) 4.58 - 5.54 x10(6)/[facility] Hemoglobin 12.7(L) 13.7 - 16.5 gm/dL [facility] Hematocrit 38.1(L) 40.5 - 48.5 % [facility] Mean Cell Volume 92.0 82.9 - 93.1 fL [facility] Mean Cell Hemoglobin 30.7 27.5 - 32.1 pg [facility] Mean Cell Hemoglobin Concentration 33.3 32.0 - 35.7 gm/dL [facility] Platelet 281 145 - 357 x10(3)/mc L [facility] RDW Standard Deviation 46.4(H) 36.0 - 45.0 fL [facility] RDW coefficient of variation 13.9(H) 11.4 - 13.8 % [facility] Mean Platelet Volume 9.9 7.6 - 12.9 fL [facility] NRBC% auto 0.0 % [facility] NRBC Absolute 0.000 0.000 - 0.000 x10(3)/mc L [facility] Blood specimen (specimen) 07/29/2017 3:41 AM EDT 07/29/2017 3:58 AM EDT Narrative Resulting Agency Comment Spec In Lab Sriram Contreras MD HEMATOLOGY ORDERAB LES [facility] [place] [id number] * Basic Metabolic Panel (non-fasting) (07/29/2017 3:41 AM EDT) Glucose 95 65 - 199 mg/dL [facility] Comment:Diabetes: >=200 mg/d L plus symptoms Blood Urea Nitrogen 16 10 - 20 mg/dL [facility] Creatinine 0.95 0.80 - 1.50 mg/dL [facility] Comment: Please note that the pediatric reference intervals supplied above were not validated at [facility]. Results from pediatric patients should be interpreted in conjunction to the patient's age, height and muscle mass. Sodium 139 135 - 145 mmol/L [facility] Potassium 3.9 3.5 - 5.0 mmol/L [facility] Comment: Please note: ??Patients with WBC >100,000 may have falsely elevated Potassium levels. ??For accurate Potassium quantification in these patients send serum separator tube (gold top) for subsequent determinations. ??Contact the Clinical Chemistry Laboratory if there are any questions. Chloride 102 98 - 107 mmol/L [facility] Carbon Dioxide 24 22 - 31 mmol/L [facility] Anion Gap 13 5 - 15 mmol/L [facility] Calcium 8.9 8.5 - 10.5 mg/dL [facility] Est Glomerular Filtration Rate >60 >=60 [facility] Comment: This estimated GFR (eGFR) [...] the following links into your internet browser. [email or web address] Blood specimen (specimen) 07/29/2017 3:41 AM EDT 07/29/2017 3:58 AM EDT Narrative Resulting Agency Comment Spec In Lab Sriram Contreras MD CHEMISTRY ORDERABL ES Performing Organization Address [facility] Co de Phone Number [facility] [place] [address] * POCT Glucose (07/28/2017 11:53 AM EDT) Glucose, POC 107 65 - 199 mg/dL [facility] Comment: Supplemental ranges: <140 mg/dL before meals <180 mg/dL all other times of the day Blood specimen (specimen) 07/28/2017 11:53 AM EDT 07/28/2017 11:53 AM EDT Sriram Contreras MD POINT OF CARE TEST ORDERABLES Performing Organization Address City/[facility] Co de Phone Number [facility] [place] [address] * POCT Glucose (07/28/2017 7:52 AM EDT) Glucose, POC 97 65 - 199 mg/dL [facility] Comment: Supplemental ranges: <140 mg/dL before meals <180 mg/dL all other times of the day Blood specimen (specimen) 07/28/2017 7:52 AM EDT 07/28/2017 7:52 AM EDT Sriram Contreras MD POINT OF CARE TEST ORDERABLES Performing Organization Address [facility] Co de Phone Number [facility] [place] [address] * POCT Glucose (07/28/2017 4:27 AM EDT) Glucose, POC 98 65 - 199 mg/dL [facility] Comment: Supplemental ranges: <140 mg/dL before meals <180 mg/dL all other times of the day Blood specimen (specimen) 07/28/2017 4:27 AM EDT 07/28/2017 4:27 AM EDT Sriram Contreras MD POINT OF CARE TEST ORDERABLES Performing Organization Address [facility] de Phone Number [facility] [place] [address] * Phosphorus (07/28/2017 3:47 AM EDT) Phosphorus 3.7 2.5 - 4.5 mg/dL [facility] Blood specimen (specimen) 07/28/2017 3:47 AM EDT 07/28/2017 6:16 AM EDT Narrative Resulting Agency Comment Spec In Lab Sriram Contreras MD CHEMISTRY ORDERABL ES Performing Organization Address [facility] de Phone Number [facility] [place] [address] * Magnesium (07/28/2017 3:47 AM EDT) Magnesium 0.86 0.69 - 1.07 mmol/L [facility] Blood specimen (specimen) 07/28/2017 3:47 AM EDT 07/28/2017 6:16 AM EDT Narrative Resulting Agency Comment Spec In Lab Sriram Contreras MD CHEMISTRY ORDERABL ES [facility] [place] [address] * (ABNORMAL) Differential, Automated (07/28/2017 3:47 AM EDT) Neutrophil % 62.2 % [facility] Neutrophil Absolute 4.94 1.70 - 6.10 x10(3)/mc L [facility] Lymph % 22.1 % [facility] Lymphocytes Abs 1.8 0.9 - 3.2 x10(3)/mc L [facility] Monocyte % 10.6 % [facility] Monocyte Abs 0.8 0.3 - 0.9 x10(3)/mc L [facility] Eos % 2.1 % [facility] Eosinophils Abs 0.2 0.0 - 0.4 x10(3)/mc L [facility] Basophil % 1.1 % [facility] Baso Absolute 0.1 0.0 - 0.1 x10(3)/mc L [facility] Immature Gran % 1.90 % [facility] Comment: Immature granulocytes(IG's)percentage and absolute count will include metamyelocytes, myelocytes, and promyelocytes. Blood smears from CBCs yielding IG's will be scanned manually for concordance. If this scan disagrees with the automated IG or if promyelocytes are noted, a manual differential will be performed. Immature Gran Absolute 0.15(H) 0.00 - 0.04 x10(3)/mc L [facility] Blood specimen (specimen) 07/28/2017 3:47 AM EDT 07/28/2017 3:58 AM EDT Narrative Resulting Agency Comment Spec In Lab Sriram Contreras MD HEMATOLOGY ORDERAB LES [facility] [place] [address] * (ABNORMAL) Hemogram (07/28/2017 3:47 AM EDT) White Blood Cell 8.0 4.0 - 9.5 x10(3)/mc L [facility] Red Blood Cell 4.43(L) 4.58 - 5.54 x10(6)/mc L [facility] Hemoglobin 13.4(L) 13.7 - 16.5 gm/dL [facility] Hematocrit 40.3(L) 40.5 - 48.5 % [facility] Mean Cell Volume 91.0 82.9 - 93.1 fL [facility] Mean Cell Hemoglobin 30.2 27.5 - 32.1 pg [facility] Mean Cell Hemoglobin Concentration 33.3 32.0 - 35.7 gm/dL [facility] Platelet 271 145 - 357 x10(3)/mc L [facility] RDW Standard Deviation 45.5(H) 36.0 - 45.0 fL [facility] RDW coefficient of variation 13.8 11.4 - 13.8 % [facility] Mean Platelet Volume 9.9 7.6 - 12.9 fL [facility] NRBC% auto 0.0 % [facility] NRBC Absolute 0.000 0.000 - 0.000 x10(3)/mc L [facility] Blood specimen (specimen) 07/28/2017 3:47 AM EDT 07/28/2017 3:58 AM EDT Narrative Resulting Agency Comment Spec In Lab Sriram Contreras MD HEMATOLOGY ORDERAB LES [facility] [place] [address] * Basic Metabolic Panel (non-fasting) (07/28/2017 3:47 AM EDT) Glucose 110 65 - 199 mg/dL [facility] Comment:Diabetes: >=200 mg/d L plus symptoms Blood Urea Nitrogen 19 10 - 20 mg/dL [facility] Creatinine 0.96 0.80 - 1.50 mg/dL [facility] Comment: Please note that the pediatric reference intervals supplied above were not validated at [facility]. Results from pediatric patients should be interpreted in conjunction to the patient's age, height and muscle mass. Sodium 140 135 - 145 mmol/L [facility] Potassium 3.6 3.5 - 5.0 mmol/L [facility] Comment: Please note: ??Patients with WBC >100,000 may have falsely elevated Potassium levels. ??For accurate Potassium quantification in these patients send serum separator tube (gold top) for subsequent determinations. ??Contact the Clinical Chemistry Laboratory if there are any questions. Chloride 101 98 - 107 mmol/L [facility] Carbon Dioxide 24 22 - 31 mmol/L [facility] Anion Gap 15 5 - 15 mmol/L [facility] Calcium 8.9 8.5 - 10.5 mg/dL [facility] Est Glomerular Filtration Rate >60 >=60 [facility] Comment: This estimated GFR (eGFR) [...] the following links into your internet browser. [email or web address] Blood specimen (specimen) 07/28/2017 3:47 AM EDT 07/28/2017 3:58 AM EDT Narrative Resulting Agency Comment Spec In Lab Srirma Contreras MD CHEMISTRY ORDERABL ES Performing Organization Address [facility] de Phone Number [facility] [place] [address] * POCT Glucose (07/27/2017 11:52 PM EDT) [facility] Glucose, POC 94 65 - 199 mg/dL [facility] Comment: Supplemental ranges: <140 mg/dL before meals <180 mg/dL all other times of the day Blood specimen (specimen) 07/27/2017 11:52 PM EDT 07/27/2017 11:52 PM EDT Sriram Contreras MD POINT OF CARE TEST ORDERABLES Performing Organization Address [facility] de Phone Number [facility] [place] [address] * Heparin, low molecular weight assay (07/27/2017 8:19 PM EDT) [facility] Heparin Xuss26x 0.67 IU/mL [facility] Comment: Guidelines for therapeutic unfractionated [...] MD HEMATOLOGY ORDERAB LES Performing Organization Address [facility] de Phone Number [facility] [place] [address] * POCT Glucose (07/27/2017 7:35 PM EDT) Glucose, POC 118 65 - 199 mg/dL [facility] Comment: Supplemental ranges: <140 mg/dL before meals <180 mg/dL all other times of the day Blood specimen (specimen) 07/27/2017 7:35 PM EDT 07/27/2017 7:35 PM EDT Sriram Contreras MD POINT OF CARE TEST ORDERABLES Performing Organization Address [facility] de Phone Number [facility] [place] [address] * POCT Glucose (07/27/2017 3:28 PM EDT) Glucose, POC 104 65 - 199 mg/dL [facility] Comment: Supplemental ranges: <140 mg/dL before meals <180 mg/dL all other times of the day Blood specimen (specimen) 07/27/2017 3:28 PM EDT 07/27/2017 3:28 PM EDT Sriram Contreras MD POINT OF CARE TEST ORDERABLES Performing Organization Address City/[facility]/ZIP Co de Phone Number [facility] [place] [address] * POCT Glucose (07/27/2017 11:06 AM EDT) Glucose, POC 147 65 - 199 mg/dL [facility] Comment: Supplemental ranges: <140 mg/dL before meals <180 mg/dL all other times of the day Blood specimen (specimen) 07/27/2017 11:06 AM EDT 07/27/2017 11:06 AM EDT Sriram Contreras MD POINT OF CARE TEST ORDERABLES Performing Organization Address City/[facility]/ZIP Co de Phone Number [facility] [place] [address] * POCT Glucose (07/27/2017 7:25 AM EDT) Glucose, POC 105 65 - 199 mg/dL [facility] Comment: Supplemental ranges: <140 mg/dL before meals <180 mg/dL all other times of the day Blood specimen (specimen) 07/27/2017 7:25 AM EDT 07/27/2017 7:25 AM EDT Sriram Contreras MD POINT OF CARE TEST ORDERABLES Performing Organization Address City/[facility]/ZIP Co de Phone Number [facility] [place] [address] * Duplex Study for DVT, Bilat legs (07/27/2017 6:59 AM EDT) VB Text Report Department: Vascular Surgery Lab Patient: [id number] (EUSEBIAJOSE) CPT: 23764 ICD10: I26.99 Referring Physician: SRIRAM CONTRERAS ?? [...] MD VASCULAR ORDERABLE S Performing Organization Address [facility] Co de Phone Number [facility] * POCT Glucose (07/27/2017 3:52 AM EDT) Glucose, POC 106 65 - 199 mg/dL [facility] Comment: Supplemental ranges: <140 mg/dL before meals <180 mg/dL all other times of the day Blood specimen (specimen) 07/27/2017 3:52 AM EDT 07/27/2017 3:52 AM EDT Sriram Contreras MD POINT OF CARE TEST ORDERABLES Performing Organization Address [facility] Co de Phone Number [facility] [place] [address] * (ABNORMAL) APTT (07/27/2017 2:45 AM EDT) Partial Thromboplastin Time 92(H) 25 - 35 sec [facility] Comment: The recommended therapeutic range for full dose, unfractionated heparin at [facility] is 80 ? 114 seconds. The use of the anti-Xa (heparin) level rather than the PTT is recommended for monitoring anticoagulation intensity in critically ill patients receiving unfractionated heparin by continuous IV infusion. Blood specimen (specimen) 07/27/2017 2:45 AM EDT 07/27/2017 2:55 AM EDT Narrative Resulting Agency Comment Spec In Lab Sriram Contreras MD HEMATOLOGY ORDERAB LES [facility] [place] [address] * (ABNORMAL) Differential, Automated (07/27/2017 2:45 AM EDT) [facility] Neutrophil % 67.8 % [facility] Neutrophil Absolute 8.40(H) 1.70 - 6.10 x10(3)/mc L [facility] Lymph % 17.4 % [facility] Lymphocytes Abs 2.2 0.9 - 3.2 x10(3)/mc L [facility] Monocyte % 9.5 % [facility] Monocyte Abs 1.2(H) 0.3 - 0.9 x10(3)/mc L [facility] Eos % 1.4 % [facility] Eosinophils Abs 0.2 0.0 - 0.4 x10(3)/mc L [facility] Basophil % 0.9 % [facility] Baso Absolute 0.1 0.0 - 0.1 x10(3)/mc L [facility] Immature Gran % 3.00 % [facility] Comment: Immature granulocytes(IG's)percentage and absolute count will include metamyelocytes, myelocytes, and promyelocytes. Blood smears from CBCs yielding IG's will be scanned manually for concordance. If this scan disagrees with the automated IG or if promyelocytes are noted, a manual differential will be performed. Immature Gran Absolute 0.37(H) 0.00 - 0.04 x10(3)/[facility] Blood specimen (specimen) 07/27/2017 2:45 AM EDT 07/27/2017 2:55 AM EDT Narrative Resulting Agency Comment Spec In Lab Sriram Contreras MD HEMATOLOGY ORDERAB LES Performing Organization Address City/State/[facility] Co de Phone Number [facility] [place] [address] * (ABNORMAL) Hemogram (07/27/2017 2:45 AM EDT) White Blood Cell 12.4(H) 4.0 - 9.5 x10(3)/[facility] Red Blood Cell 4.66 4.58 - 5.54 x10(6)/[facility] Hemoglobin 14.3 13.7 - 16.5 gm/dL [facility] Hematocrit 42.0 40.5 - 48.5 % [facility] Mean Cell Volume 90.1 82.9 - 93.1 fL [facility] Mean Cell Hemoglobin 30.7 27.5 - 32.1 pg [facility] Mean Cell Hemoglobin Concentration 34.0 32.0 - 35.7 gm/dL [facility] Platelet 288 145 - 357 x10(3)/[facility] RDW Standard Deviation 45.5(H) 36.0 - 45.0 [facility] RDW coefficient of variation 14.0(H) 11.4 - 13.8 % [facility] Mean Platelet Volume 9.7 7.6 - 12.9 fL [facility] NRBC% auto 0.0 % [facility] NRBC Absolute 0.000 0.000 - 0.000 x10(3)/[facility] Blood specimen (specimen) 07/27/2017 2:45 AM EDT 07/27/2017 2:55 AM EDT Narrative Resulting Agency Comment Spec In Lab Sriram Contreras MD HEMATOLOGY ORDERAB LES [facility] [place] [address] * (ABNORMAL) Basic Metabolic Panel (non-fasting) (07/27/2017 2:45 AM EDT) Glucose 169 65 - 199 mg/dL [facility] Comment:Diabetes: >=200 mg/d L plus symptoms Blood Urea Nitrogen 22(H) 10 - 20 mg/dL [facility] Creatinine 0.92 0.80 - 1.50 mg/dL [facility] Comment: Please note that the pediatric reference intervals supplied above were not validated at [facility]. Results from pediatric patients should be interpreted in conjunction to the patient's age, height and muscle mass. Sodium 139 135 - 145 mmol/L [facility] Potassium 3.7 3.5 - 5.0 mmol/L [facility] Comment: Please note: ??Patients with WBC >100,000 may have falsely elevated Potassium levels. ??For accurate Potassium quantification in these patients send serum separator tube (gold top) for subsequent determinations. ??Contact the Clinical Chemistry Laboratory if there are any questions. Chloride 100 98 - 107 mmol/L [facility] Carbon Dioxide 23 22 - 31 mmol/L [facility] Anion Gap 16(H) 5 - 15 mmol/L [facility] Calcium 9.4 8.5 - 10.5 mg/dL [facility] Est Glomerular Filtration Rate >60 >=60 [facility] Comment: This estimated GFR (eGFR) [...] the following links into your internet browser. [email or web address] Blood specimen (specimen) 07/27/2017 2:45 AM EDT 07/27/2017 2:55 AM EDT Narrative Resulting Agency Comment Spec In Lab Sriram Contreras MD CHEMISTRY ORDERABL ES Performing Organization Address [facility] Co de Phone Number [facility] [place] [address] * Phosphorus (07/27/2017 2:45 AM EDT) Phosphorus 4.3 2.5 - 4.5 mg/dL [facility] Blood specimen (specimen) 07/27/2017 2:45 AM EDT 07/27/2017 2:55 AM EDT Narrative Resulting Agency Comment Spec In Lab Sriram Contreras MD CHEMISTRY ORDERABL ES Performing Organization Address [facility] Co de Phone Number [facility] [place] [address] * Magnesium (07/27/2017 2:45 AM EDT) Magnesium 0.79 0.69 - 1.07 mmol/L [facility] Blood specimen (specimen) 07/27/2017 2:45 AM EDT 07/27/2017 2:55 AM EDT Narrative Resulting Agency Comment Spec In Lab Sriram Contreras MD CHEMISTRY ORDERABL ES Performing Organization Address [facility] Co de Phone Number [facility] [place] [address] * POCT Glucose (07/27/2017 12:02 AM EDT) Glucose, POC 112 65 - 199 mg/dL [facility] Comment: Supplemental ranges: <140 mg/dL before meals <180 mg/dL all other times of the day Blood specimen (specimen) 07/27/2017 12:02 AM EDT 07/27/2017 12:02 AM EDT Sriram Contreras MD POINT OF CARE TEST ORDERABLES Performing Organization Address [facility] Co de Phone Number [facility] [place] [address] * (ABNORMAL) APTT (07/26/2017 9:29 PM EDT) Partial Thromboplastin Time 90(H) 25 - 35 sec [facility] Comment: The recommended therapeutic range for full dose, unfractionated heparin at [facility] is 80 ? 114 seconds. The use of the anti-Xa (heparin) level rather than the PTT is recommended for monitoring anticoagulation intensity in critically ill patients receiving unfractionated heparin by continuous IV infusion. Blood specimen (specimen) 07/26/2017 9:29 PM EDT 07/26/2017 9:32 PM EDT Narrative Resulting Agency Comment Spec In Lab Sriram Contreras MD HEMATOLOGY ORDERAB LES Performing Organization Address [facility] Co de Phone Number [facility] [place] [address] * POCT Glucose (07/26/2017 8:14 PM EDT) Glucose, POC 116 65 - 199 mg/dL [facility] Comment: Supplemental ranges: <140 mg/dL before meals <180 mg/dL all other times of the day Blood specimen (specimen) 07/26/2017 8:14 PM EDT 07/26/2017 8:14 PM EDT Sriram Contreras MD POINT OF CARE TEST ORDERABLES Performing Organization Address [facility] Co de Phone Number [facility] [place] [address] * POCT Glucose (07/26/2017 3:20 PM EDT) Glucose, POC 125 65 - 199 mg/dL [facility] Comment: Supplemental ranges: <140 mg/dL before meals <180 mg/dL all other times of the day Blood specimen (specimen) 07/26/2017 3:20 PM EDT 07/26/2017 3:20 PM EDT Sriram Contreras MD POINT OF CARE TEST ORDERABLES Performing Organization Address [facility] Co de Phone Number [facility] [place] [address] * (ABNORMAL) APTT (07/26/2017 1:51 PM EDT) Partial Thromboplastin Time 88(H) 25 - 35 sec [facility] Comment: The recommended therapeutic range for full dose, unfractionated heparin at [facility] is 80 ? 114 seconds. The use of the anti-Xa (heparin) level rather than the PTT is recommended for monitoring anticoagulation intensity in critically ill patients receiving unfractionated heparin by continuous IV infusion. Blood specimen (specimen) 07/26/2017 1:51 PM EDT 07/26/2017 1:55 PM EDT Narrative Resulting Agency Comment Spec In Lab Sriram Contreras MD HEMATOLOGY ORDERAB LES Performing Organization Address [facility] de Phone Number [facility] [place], [place] [address] * POCT Glucose (07/26/2017 11:12 AM EDT) Glucose, POC 120 65 - 199 mg/dL [facility] Comment: Supplemental ranges: <140 mg/dL before meals <180 mg/dL all other times of the day Blood specimen (specimen) 07/26/2017 11:12 AM EDT 07/26/2017 11:12 AM EDT Sriram Contreras MD POINT OF CARE TEST ORDERABLES Performing Organization Address [facility] Co de Phone Number [facility] [place] [address] * POCT Glucose (07/26/2017 7:35 AM EDT) [facility] Glucose, POC 115 65 - 199 mg/dL [facility] Comment: Supplemental ranges: <140 mg/dL before meals <180 mg/dL all other times of the day Blood specimen (specimen) 07/26/2017 7:35 AM EDT 07/26/2017 7:35 AM EDT Sriram Contreras MD POINT OF CARE TEST ORDERABLES Performing Organization Address [facility] de Phone Number [facility] [place] [address] * (ABNORMAL) APTT (07/26/2017 3:30 AM EDT) [facility] Partial Thromboplastin Time 60(H) 25 - 35 sec [facility] Comment: The recommended therapeutic range for full dose, unfractionated heparin at [facility] is 80 ? 114 seconds. The use of the anti-Xa (heparin) level rather than the PTT is recommended for monitoring anticoagulation intensity in critically ill patients receiving unfractionated heparin by continuous IV infusion. Blood specimen (specimen) 07/26/2017 3:30 AM EDT 07/26/2017 4:11 AM EDT Narrative Resulting Agency Comment Spec In Lab Sriram Contreras MD HEMATOLOGY ORDERAB LES Performing Organization Address [facility] Co de Phone Number [facility] [place] [address] * (ABNORMAL) Differential, Automated (07/26/2017 3:30 AM EDT) [facility] Neutrophil % 68.7 % [facility] Neutrophil Absolute 8.50(H) 1.70 - 6.10 x10(3)/mc L [facility] Lymph % 14.3 % [facility] Lymphocytes Abs 1.8 0.9 - 3.2 x10(3)/mc L [facility] Monocyte % 9.6 % [facility] Monocyte Abs 1.2(H) 0.3 - 0.9 x10(3)/ L [facility] Eos % 1.3 % [facility] Eosinophils Abs 0.2 0.0 - 0.4 x10(3)/[facility] Basophil % 1.4 % [facility] Baso Absolute 0.2(H) 0.0 - 0.1 x10(3)/[facility] Immature Gran % 4.70 % [facility] Comment: Immature granulocytes(IG's)percentage and absolute count will include metamyelocytes, myelocytes, and promyelocytes. Blood smears from CBCs yielding IG's will be scanned manually for concordance. If this scan disagrees with the automated IG or if promyelocytes are noted, a manual differential will be performed. Immature Gran Absolute 0.58(H) 0.00 - 0.04 x10(3)/[facility] Blood specimen (specimen) 07/26/2017 3:30 AM EDT 07/26/2017 4:11 AM EDT Narrative Resulting Agency Comment Spec In Lab Sriram Contreras MD HEMATOLOGY ORDERAB LES [facility] [place] [address] * (ABNORMAL) Hemogram (07/26/2017 3:30 AM EDT) White Blood Cell 12.4(H) 4.0 - 9.5 x10(3)/[facility] Red Blood Cell 4.87 4.58 - 5.54 x10(6)/[facility] Hemoglobin 15.2 13.7 - 16.5 gm/dL [facility] Hematocrit 44.1 40.5 - 48.5 % [facility] Mean Cell Volume 90.6 82.9 - 93.1 fL [facility] Mean Cell Hemoglobin 31.2 27.5 - 32.1 pg [facility] Mean Cell Hemoglobin Concentration 34.5 32.0 - 35.7 gm/dL [facility] Platelet 253 145 - 357 x10(3)/mc L [facility] RDW Standard Deviation 44.8 36.0 - 45.0 fL [facility] RDW coefficient of variation 13.6 11.4 - 13.8 % [facility] Mean Platelet Volume 10.4 7.6 - 12.9 fL [facility] NRBC% auto 0.2 % [facility] NRBC Absolute 0.020(H) 0.000 - 0.000 x10(3)/mc L [facility] Blood specimen (specimen) 07/26/2017 3:30 AM EDT 07/26/2017 4:11 AM EDT Narrative Resulting Agency Comment Spec In Lab Sriram Contreras MD HEMATOLOGY ORDERAB LES [facility] [place] [address] * Basic Metabolic Panel (non-fasting) (07/26/2017 3:30 AM EDT) Glucose 123 65 - 199 mg/dL [facility] Comment:Diabetes: >=200 mg/d L plus symptoms Blood Urea Nitrogen 18 10 - 20 mg/dL [facility] Creatinine 0.85 0.80 - 1.50 mg/dL [facility] Comment: Please note that the pediatric reference intervals supplied above were not validated at [facility]. Results from pediatric patients should be interpreted in conjunction to the patient's age, height and muscle mass. Sodium 141 135 - 145 mmol/L [facility] Potassium 3.8 3.5 - 5.0 mmol/L [facility] Comment: Please note: ??Patients with WBC >100,000 may have falsely elevated Potassium levels. ??For accurate Potassium quantification in these patients send serum separator tube (gold top) for subsequent determinations. ??Contact the Clinical Chemistry Laboratory if there are any questions. Chloride 102 98 - 107 mmol/L [facility] Carbon Dioxide 25 22 - 31 mmol/L [facility] Anion Gap 14 5 - 15 mmol/L [facility] Calcium 9.2 8.5 - 10.5 mg/dL [facility] Est Glomerular Filtration Rate >60 >=60 [facility] Comment: This estimated GFR (eGFR) [...] the following links into your internet browser. [email or web address] Blood specimen (specimen) 07/26/2017 3:30 AM EDT 07/26/2017 4:11 AM EDT Narrative Resulting Agency Comment Spec In Lab Sriram Contreras MD CHEMISTRY ORDERABL ES Performing Organization Address [facility] Co de Phone Number [facility] [place] [address] * Prealbumin (07/26/2017 3:30 AM EDT) Prealbumin 26 20 - 40 mg/dL [facility] Comment: Prealbumin levels are generally lower in the pediatric population; adult concentrations are usually attained near puberty. Blood specimen (specimen) 07/26/2017 3:30 AM EDT 07/26/2017 4:11 AM EDT Narrative Resulting Agency Comment Spec In Lab Sriram Contreras MD CHEMISTRY ORDERABL ES Performing Organization Address City/[facility] Co de Phone Number [facility] [place] [address] * POCT Glucose (07/26/2017 3:27 AM EDT) Glucose, POC 116 65 - 199 mg/dL [facility] Comment: Supplemental ranges: <140 mg/dL before meals <180 mg/dL all other times of the day Blood specimen (specimen) 07/26/2017 3:27 AM EDT 07/26/2017 3:27 AM EDT Sriram Contreras MD POINT OF CARE TEST ORDERABLES Performing Organization Address [facility] Co de Phone Number [facility] [place] [address] * POCT Glucose (07/25/2017 7:50 PM EDT) Glucose, POC 109 65 - 199 mg/dL [facility] Comment: Supplemental ranges: <140 mg/dL before meals <180 mg/dL all other times of the day Blood specimen (specimen) 07/25/2017 7:50 PM EDT 07/25/2017 7:50 PM EDT Sriram Contreras MD POINT OF CARE TEST ORDERABLES Performing Organization Address [facility] de Phone Number [facility] [place] [address] * (ABNORMAL) APTT (07/25/2017 5:51 PM EDT) Partial Thromboplastin Time 112(H) 25 - 35 sec [facility] Comment: The recommended therapeutic range for full dose, unfractionated heparin at [facility] is 80 ? 114 seconds. The use of the anti-Xa (heparin) level rather than the PTT is recommended for monitoring anticoagulation intensity in critically ill patients receiving unfractionated heparin by continuous IV infusion. Blood specimen (specimen) 07/25/2017 5:51 PM EDT 07/25/2017 5:55 PM EDT Narrative Resulting Agency Comment Spec In Lab Sriram Contreras MD HEMATOLOGY ORDERAB LES Performing Organization Address [facility] Co de Phone Number [facility] [place] [address] * POCT Glucose (07/25/2017 4:01 PM EDT) Glucose, POC 109 65 - 199 mg/dL [facility] Comment: Supplemental ranges: <140 mg/dL before meals <180 mg/dL all other times of the day Blood specimen (specimen) 07/25/2017 4:01 PM EDT 07/25/2017 4:01 PM EDT Sriram Contreras MD POINT OF CARE TEST ORDERABLES Performing Organization Address [facility] Co de Phone Number [facility] [place] [address] * POCT Glucose (07/25/2017 12:10 PM EDT) Glucose, POC 117 65 - 199 mg/dL [facility] Comment: Supplemental ranges: <140 mg/dL before meals <180 mg/dL all other times of the day Blood specimen (specimen) 07/25/2017 12:10 PM EDT 07/25/2017 12:10 PM EDT Sriram Contreras MD POINT OF CARE TEST ORDERABLES Performing Organization Address [facility] Co de Phone Number [facility] [place] [address] * Potassium (07/25/2017 11:00 AM EDT) Potassium 3.9 3.5 - 5.0 mmol/L [facility] Comment: Please note: ??Patients with [...] MD CHEMISTRY ORDERABL ES Performing Organization Address [facility] Co de Phone Number [facility] [place] [address] * (ABNORMAL) APTT (07/25/2017 11:00 AM EDT) [facility] Partial Thromboplastin Time 102(H) 25 - 35 sec [facility] Comment: The recommended therapeutic range for full dose, unfractionated heparin at [facility] is 80 ? 114 seconds. The use of the anti-Xa (heparin) level rather than the PTT is recommended for monitoring anticoagulation intensity in critically ill patients receiving unfractionated heparin by continuous IV infusion. Blood specimen (specimen) 07/25/2017 11:00 AM EDT 07/25/2017 11:05 AM EDT Narrative Resulting Agency Comment Spec In Lab Sriram Contreras MD HEMATOLOGY ORDERAB LES Performing Organization Address [facility] Co de Phone Number [facility] [place] [address] * POCT Glucose (07/25/2017 8:27 AM EDT) [facility] Glucose, POC 124 65 - 199 mg/dL [facility] Comment: Supplemental ranges: <140 mg/dL before meals <180 mg/dL all other times of the day Blood specimen (specimen) 07/25/2017 8:27 AM EDT 07/25/2017 8:27 AM EDT Sriram Contreras MD POINT OF CARE TEST ORDERABLES Performing Organization Address [facility] Co de Phone Number [facility] [place] [address] * (ABNORMAL) BLOOD GAS 2 ARTERIAL (07/25/2017 6:19 AM EDT) [facility] pH, Arterial 7.51(H) 7.35 - 7.45 [facility] PCO2, Arterial 29(L) 35 - 45 mmHg [facility] PO2, Arterial 59(L) 85 - 104 mmHg [facility] Bicarbonate, Arterial 22.2 20.0 - 26.0 mmol/L [facility] Base Excess, Arterial -0.9 -3.0 - 3.0 mmol/L [facility] Hgb Blood Gas 14.6 13.7 - 16.5 gm/dL [facility] Oxyhemoglobin, Arterial 91.1(L) 94.0 - 97.0 % [facility] Carboxyhemoglob in, Arterial 0.3 % [facility] Comment: Nonsmokers: 0.5-1.5% COHB Smokers: Variable, but usually less than 10% Toxic: 20-30% COHB Lethal: Greater than 60% COHB Methemoglobin, Arterial 0.6 <=1.5 % [facility] Na Whole Blood 141 135 - 145 mmol/L [facility] K Whole Blood 3.8 3.5 - 5.0 mmol/L [facility] Comment: Please note: Patients with WBC >100,000 may have falsely elevated Potassium levels. Contact the Clinical Chemistry Laboratory if there are any questions. ICa Whole Blood 1.17 1.15 - 1.33 mmol/L [facility] Comment: Note: ??Total bilirubin higher than 20 mg/dL may lead to falsely low ionized calcium. CL Whole Blood 108(H) 98 - 107 mmol/L [facility] Gluc Whole Bld 136 65 - 199 mg/dL [facility] Comment:Diabetes: >=200 mg/d L plus symptoms. Lactate WB 1.5 0.5 - 2.2 mmol/L [facility] Blood specimen (specimen) 07/25/2017 6:19 AM EDT 07/25/2017 6:19 AM EDT Sriram Contreras MD POINT OF CARE TEST ORDERABLES [facility] [place] [address] * POCT Glucose (07/25/2017 4:41 AM EDT) Glucose, POC 101 65 - 199 mg/dL [facility] Comment: Supplemental ranges: <140 mg/dL before meals <180 mg/dL all other times of the day Blood specimen (specimen) 07/25/2017 4:41 AM EDT 07/25/2017 4:41 AM EDT Sriram Contreras MD POINT OF CARE TEST ORDERABLES Performing Organization Address [facility]/ZIP Co de Phone Number [facility] [place] [address] * Magnesium (07/25/2017 4:37 AM EDT) [facility] Magnesium 0.83 0.69 - 1.07 mmol/L [facility] Blood specimen (specimen) Venous Draw / Unknown 07/25/2017 4:37 AM EDT 07/25/2017 4:50 AM EDT Narrative Resulting Agency Comment Spec In Lab Sriram Contreras MD CHEMISTRY ORDERABL ES Performing Organization Address City/[facility] Co de Phone Number [facility] [place] [address] * (ABNORMAL) Differential, Automated (07/25/2017 4:37 AM EDT) [facility] Neutrophil % 68.4 % [facility] Neutrophil Absolute 8.77(H) 1.70 - 6.10 x10(3)/mc L [facility] Lymph % 15.0 % [facility] Lymphocytes Abs 1.9 0.9 - 3.2 x10(3)/mc L [facility] Monocyte % 8.9 % [facility] Monocyte Abs 1.1(H) 0.3 - 0.9 x10(3)/mc L [facility] Eos % 1.9 % [facility] Eosinophils Abs 0.2 0.0 - 0.4 x10(3)/mc L [facility] Basophil % 1.0 % [facility] Baso Absolute 0.1 0.0 - 0.1 x10(3)/mc L [facility] Immature Gran % 4.80 % [facility] Comment: Immature granulocytes(IG's)percentage and absolute count will include metamyelocytes, myelocytes, and promyelocytes. Blood smears from CBCs yielding IG's will be scanned manually for concordance. If this scan disagrees with the automated IG or if promyelocytes are noted, a manual differential will be performed. Immature Gran Absolute 0.62(H) 0.00 - 0.04 x10(3)/mc L [facility] Blood specimen (specimen) 07/25/2017 4:37 AM EDT 07/25/2017 4:48 AM EDT Narrative Resulting Agency Comment Spec In Lab Sriram Contreras MD HEMATOLOGY ORDERAB LES Performing Organization Address City/State/[facility] Co de Phone Number [facility] [place] [address] * (ABNORMAL) Hemogram (07/25/2017 4:37 AM EDT) White Blood Cell 12.8(H) 4.0 - 9.5 x10(3)/ L [facility] Red Blood Cell 4.53(L) 4.58 - 5.54 x10(6)/mc L [facility] Hemoglobin 14.0 13.7 - 16.5 gm/dL [facility] Hematocrit 40.3(L) 40.5 - 48.5 % [facility] Mean Cell Volume 89.0 82.9 - 93.1 fL [facility] Mean Cell Hemoglobin 30.9 27.5 - 32.1 pg [facility] Mean Cell Hemoglobin Concentration 34.7 32.0 - 35.7 gm/dL [facility] Platelet 241 145 - 357 x10(3)/mc L [facility] RDW Standard Deviation 43.1 36.0 - 45.0 fL [facility] RDW coefficient of variation 13.2 11.4 - 13.8 % [facility] Mean Platelet Volume 9.9 7.6 - 12.9 fL [facility] NRBC% auto 0.0 % [facility] NRBC Absolute 0.000 0.000 - 0.000 x10(3)/mc L [facility] Blood specimen (specimen) 07/25/2017 4:37 AM EDT 07/25/2017 4:48 AM EDT Narrative Resulting Agency Comment Spec In Lab Sriram Contreras MD HEMATOLOGY ORDERAB LES [facility] [place] [address] * Basic Metabolic Panel (non-fasting) (07/25/2017 4:37 AM EDT) Glucose 120 65 - 199 mg/dL [facility] Comment:Diabetes: >=200 mg/d L plus symptoms Blood Urea Nitrogen 14 10 - 20 mg/dL [facility] Creatinine 0.81 0.80 - 1.50 mg/dL [facility] Comment: Please note that the pediatric reference intervals supplied above were not validated at [facility]. Results from pediatric patients should be interpreted in conjunction to the patient's age, height and muscle mass. Sodium 140 135 - 145 mmol/L [facility] Potassium 3.6 3.5 - 5.0 mmol/L [facility] Comment: Please note: ??Patients with WBC >100,000 may have falsely elevated Potassium levels. ??For accurate Potassium quantification in these patients send serum separator tube (gold top) for subsequent determinations. ??Contact the Clinical Chemistry Laboratory if there are any questions. Chloride 103 98 - 107 mmol/L [facility] Carbon Dioxide 24 22 - 31 mmol/L [facility] Anion Gap 13 5 - 15 mmol/L [facility] Calcium 8.8 8.5 - 10.5 mg/dL [facility] Est Glomerular Filtration Rate >60 >=60 [facility] Comment: This estimated GFR (eGFR) [...] the following links into your internet browser. [email or web address] Blood specimen (specimen) 07/25/2017 4:37 AM EDT 07/25/2017 4:48 AM EDT Narrative Resulting Agency Comment Spec In Lab Sriram Contreras MD CHEMISTRY ORDERABL ES Performing Organization Address [facility] Phone Number [facility] [place] [address] * (ABNORMAL) APTT (07/25/2017 4:37 AM EDT) Partial Thromboplastin Time 122(H) 25 - 35 sec [facility] Comment: The recommended therapeutic range for full dose, unfractionated heparin at [facility] is 80 ? 114 seconds. The use of the anti-Xa (heparin) level rather than the PTT is recommended for monitoring anticoagulation intensity in critically ill patients receiving unfractionated heparin by continuous IV infusion. Blood specimen (specimen) 07/25/2017 4:37 AM EDT 07/25/2017 4:48 AM EDT Narrative Resulting Agency Comment Spec In Lab Sriram Contreras MD HEMATOLOGY ORDERAB LES Performing Organization Address [facility] Phone Number [facility] [place] [address] * POCT Glucose (07/25/2017 12:10 AM EDT) Glucose, POC 108 65 - 199 mg/dL [facility] Comment: Supplemental ranges: <140 mg/dL before meals <180 mg/dL all other times of the day Blood specimen (specimen) 07/25/2017 12:10 AM EDT 07/25/2017 12:10 AM EDT Sriram Contreras MD POINT OF CARE TEST ORDERABLES [facility] [place] [address] * POCT Glucose (07/24/2017 8:05 PM EDT) Glucose, POC 112 65 - 199 mg/dL [facility] Comment: Supplemental ranges: <140 mg/dL before meals <180 mg/dL all other times of the day Blood specimen (specimen) 07/24/2017 8:05 PM EDT 07/24/2017 8:05 PM EDT Sriram Contreras MD POINT OF CARE TEST ORDERABLES Performing Organization Address City/[facility]/ZIP Co de Phone Number [facility] [place] [address] * POCT Glucose (07/24/2017 8:04 PM EDT) Glucose, POC 106 65 - 199 mg/dL [facility] Comment: Supplemental ranges: <140 mg/dL before meals <180 mg/dL all other times of the day Blood specimen (specimen) 07/24/2017 8:04 PM EDT 07/24/2017 8:04 PM EDT Sriram Contreras MD POINT OF CARE TEST ORDERABLES [facility] [place] [address] * POCT Glucose (07/24/2017 3:42 PM EDT) Glucose, POC 108 65 - 199 mg/dL [facility] Comment: Supplemental ranges: <140 mg/dL before meals <180 mg/dL all other times of the day Blood specimen (specimen) 07/24/2017 3:42 PM EDT 07/24/2017 3:42 PM EDT Sriram Contreras MD POINT OF CARE TEST ORDERABLES Performing Organization Address City/[facility] Co de Phone Number [facility] [place] [address] * POCT Glucose (07/24/2017 11:42 AM EDT) Glucose, POC 102 65 - 199 mg/dL [facility] Comment: Supplemental ranges: <140 mg/dL before meals <180 mg/dL all other times of the day Blood specimen (specimen) 07/24/2017 11:42 AM EDT 07/24/2017 11:42 AM EDT Sriram Contreras MD POINT OF CARE TEST ORDERABLES Performing Organization Address [facility] Co de Phone Number [facility] [place] [address] * POCT Glucose (07/24/2017 8:00 AM EDT) Glucose, POC 107 65 - 199 mg/dL [facility] Comment: Supplemental ranges: <140 mg/dL before meals <180 mg/dL all other times of the day Blood specimen (specimen) 07/24/2017 8:00 AM EDT 07/24/2017 8:00 AM EDT Sriram Contreras MD POINT OF CARE TEST ORDERABLES Performing Organization Address City/[facility] Co de Phone Number [facility] [place] [address] * (ABNORMAL) BLOOD GAS 2 ARTERIAL (07/24/2017 7:28 AM EDT) pH, Arterial 7.44 7.35 - 7.45 [facility] PCO2, Arterial 39 35 - 45 mmHg [facility] PO2, Arterial 67(L) 85 - 104 mmHg [facility] Bicarbonate, Arterial 25.5 20.0 - 26.0 mmol/L [facility] Base Excess, Arterial 1.2 -3.0 - 3.0 mmol/L [facility] Hgb Blood Gas 13.8 13.7 - 16.5 gm/dL [facility] Oxyhemoglobin, Arterial 92.8(L) 94.0 - 97.0 % [facility] Carboxyhemoglob in, Arterial 0.3 % [facility] Comment: Nonsmokers: 0.5-1.5% COHB Smokers: Variable, but usually less than 10% Toxic: 20-30% COHB Lethal: Greater than 60% COHB Methemoglobin, Arterial 0.6 <=1.5 % [facility] Na Whole Blood 139 135 - 145 mmol/L [facility] K Whole Blood 4.0 3.5 - 5.0 mmol/L [facility] Comment: Please note: Patients with WBC >100,000 may have falsely elevated Potassium levels. Contact the Clinical Chemistry Laboratory if there are any questions. ICa Whole Blood 1.21 1.15 - 1.33 mmol/L [facility] Comment: Note: ??Total bilirubin higher than 20 mg/dL may lead to falsely low ionized calcium. CL Whole Blood 105 98 - 107 mmol/L [facility] Gluc Whole Bld 123 65 - 199 mg/dL [facility] Comment:Diabetes: >=200 mg/d L plus symptoms. Lactate WB 1.7 0.5 - 2.2 mmol/L [facility] FIO2 Art 30 % [facility] PF Ratio Art 223 [facility] Blood specimen (specimen) 07/24/2017 7:28 AM EDT 07/24/2017 7:28 AM EDT Sriram Contreras MD POINT OF CARE TEST ORDERABLES [facility] [place] [address] * Potassium (07/24/2017 7:28 AM EDT) Potassium 4.1 3.5 - 5.0 mmol/L [facility] Comment: Please note: ??Patients with [...] MD CHEMISTRY ORDERABL ES Performing Organization Address [facility] Co de Phone Number [facility] [place] [address] * POCT Glucose (07/24/2017 3:42 AM EDT) [facility] Glucose, POC 91 65 - 199 mg/dL [facility] Comment: Supplemental ranges: <140 mg/dL before meals <180 mg/dL all other times of the day Blood specimen (specimen) 07/24/2017 3:42 AM EDT 07/24/2017 3:42 AM EDT Sriram Contreras MD POINT OF CARE TEST ORDERABLES Performing Organization Address [facility] Co de Phone Number [facility] [place] [address] * Scan, Peripheral Blood (07/24/2017 1:00 AM EDT) Plat estimate Normal [facility] RBC Morphology Normal [facility] Blood specimen (specimen) Venous Draw / Unknown 07/24/2017 1:00 AM EDT 07/24/2017 1:15 AM EDT Narrative Resulting Agency Comment Spec In Lab Sriram Contreras MD HEMATOLOGY ORDERAB LES Performing Organization Address [facility] [place] [address] * (ABNORMAL) Differential, Automated (07/24/2017 1:00 AM EDT) Pathologist [facility] Neutrophil % 69.9 % [facility] Neutrophil Absolute 9.34(H) 1.70 - 6.10 x10(3)/ L [facility] Lymph % 13.7 % [facility] Lymphocytes Abs 1.8 0.9 - 3.2 x10(3)/ L [facility] Monocyte % 8.1 % [facility] Monocyte Abs 1.1(H) 0.3 - 0.9 x10(3)/[facility] Eos % 2.2 % [facility] Eosinophils Abs 0.3 0.0 - 0.4 x10(3)/[facility] Basophil % 0.7 % [facility] Baso Absolute 0.1 0.0 - 0.1 x10(3)/[facility] Immature Gran % 5.40 % [facility] Comment: Immature granulocytes(IG's)percentage and absolute count will include metamyelocytes, myelocytes, and promyelocytes. Blood smears from CBCs yielding IG's will be scanned manually for concordance. If this scan disagrees with the automated IG or if promyelocytes are noted, a manual differential will be performed. Immature Gran Absolute 0.72(H) 0.00 - 0.04 x10(3)/ L [facility] Blood specimen (specimen) 07/24/2017 1:00 AM EDT 07/24/2017 1:15 AM EDT Narrative Resulting Agency Comment Spec In Lab Sriram Contreras MD [place]EM[place] [address] * (ABNORMAL) Hemogram (07/24/2017 1:00 AM EDT) [facility] White Blood Cell 13.4(H) 4.0 - 9.5 x10(3)/[facility] Red Blood Cell 4.13(L) 4.58 - 5.54 x10(6)/ L [facility] Hemoglobin 12.7(L) 13.7 - 16.5 gm/dL [facility] Hematocrit 38.0(L) 40.5 - 48.5 % [facility] Mean Cell Volume 92.0 82.9 - 93.1 fL [facility] Mean Cell Hemoglobin 30.8 27.5 - 32.1 pg [facility] Mean Cell Hemoglobin Concentration 33.4 32.0 - 35.7 gm/dL [facility] Platelet 201 145 - 357 x10(3)/[facility] RDW Standard Deviation 45.5(H) 36.0 - 45.0 fL [facility] RDW coefficient of variation 13.4 11.4 - 13.8 % [facility] Mean Platelet Volume 10.1 7.6 - 12.9 fL [facility] NRBC% auto 0.0 % [facility] NRBC Absolute 0.000 0.000 - 0.000 x10(3)/[facility] Blood specimen (specimen) 07/24/2017 1:00 AM EDT 07/24/2017 1:15 AM EDT Narrative Resulting Agency Comment Spec In Lab Sriram Contreras MD HEMATOLOGY ORDERAB LES [facility] [place] [address] * (ABNORMAL) APTT (07/24/2017 1:00 AM EDT) [facility] Partial Thromboplastin Time 102(H) 25 - 35 sec [facility] Comment: The recommended therapeutic range for full dose, unfractionated heparin at [facility] is 80 ? 114 seconds. The use of the anti-Xa (heparin) level rather than the PTT is recommended for monitoring anticoagulation intensity in critically ill patients receiving unfractionated heparin by continuous IV infusion. Blood specimen (specimen) 07/24/2017 1:00 AM EDT 07/24/2017 1:14 AM EDT Narrative Resulting Agency Comment Spec In Lab Sriram Contreras MD HEMATOLOGY ORDERAB LES [facility] [place] [address] * (ABNORMAL) Basic Metabolic Panel (non-fasting) (07/24/2017 1:00 AM EDT) Glucose 103 65 - 199 mg/dL [facility] Comment:Diabetes: >=200 mg/d L plus symptoms Blood Urea Nitrogen 17 10 - 20 mg/dL [facility] Creatinine 0.70(L) 0.80 - 1.50 mg/dL [facility] Comment: Please note that the pediatric reference intervals supplied above were not validated at [facility]. Results from pediatric patients should be interpreted in conjunction to the patient's age, height and muscle mass. Sodium 143 135 - 145 mmol/L [facility] Potassium 4.0 3.5 - 5.0 mmol/L [facility] Comment: Please note: ??Patients with WBC >100,000 may have falsely elevated Potassium levels. ??For accurate Potassium quantification in these patients send serum separator tube (gold top) for subsequent determinations. ??Contact the Clinical Chemistry Laboratory if there are any questions. Chloride 104 98 - 107 mmol/L [facility] Carbon Dioxide 27 22 - 31 mmol/L [facility] Anion Gap 12 5 - 15 mmol/L [facility] Calcium 8.7 8.5 - 10.5 mg/dL [facility] Est Glomerular Filtration Rate >60 >=60 [facility] Comment: This estimated GFR (eGFR) [...] the following links into your internet browser. [email or web address] Blood specimen (specimen) 07/24/2017 1:00 AM EDT 07/24/2017 1:14 AM EDT Narrative Resulting Agency Comment Spec In Lab Sriram Contreras MD CHEMISTRY ORDERABL ES Performing Organization Address [facility] Co de Phone Number [facility] [place] [address] * POCT Glucose (07/23/2017 11:53 PM EDT) Glucose, POC 95 65 - 199 mg/dL [facility] Comment: Supplemental ranges: <140 mg/dL before meals <180 mg/dL all other times of the day Blood specimen (specimen) 07/23/2017 11:53 PM EDT 07/23/2017 11:53 PM EDT Sriram Contreras MD POINT OF CARE TEST ORDERABLES Performing Organization Address [facility] Co de Phone Number [facility] [place] [address] * POCT Glucose (07/23/2017 7:52 PM EDT) Glucose, POC 91 65 - 199 mg/dL [facility] Comment: Supplemental ranges: <140 mg/dL before meals <180 mg/dL all other times of the day Blood specimen (specimen) 07/23/2017 7:52 PM EDT 07/23/2017 7:52 PM EDT Sriram Contreras MD POINT OF CARE TEST ORDERABLES Performing Organization Address City/[facility] Co de Phone Number [facility] [place] [address] * POCT Glucose (07/23/2017 2:56 PM EDT) Glucose, POC 115 65 - 199 mg/dL [facility] Comment: Supplemental ranges: <140 mg/dL before meals <180 mg/dL all other times of the day Blood specimen (specimen) 07/23/2017 2:56 PM EDT 07/23/2017 2:56 PM EDT Sriram Contreras MD POINT OF CARE TEST ORDERABLES Performing Organization Address [facility] de Phone Number [facility] [place] [address] * (ABNORMAL) APTT (07/23/2017 2:55 PM EDT) Partial Thromboplastin Time 101(H) 25 - 35 sec [facility] Comment: The recommended therapeutic range for full dose, unfractionated heparin at [facility] is 80 ? 114 seconds. The use of the anti-Xa (heparin) level rather than the PTT is recommended for monitoring anticoagulation intensity in critically ill patients receiving unfractionated heparin by continuous IV infusion. Blood specimen (specimen) 07/23/2017 2:55 PM EDT 07/23/2017 3:04 PM EDT Narrative Resulting Agency Comment Spec In Lab Sriram Contreras MD HEMATOLOGY ORDERAB LES Performing Organization Address [facility] Co de Phone Number [facility] [place] [address] * POCT Glucose (07/23/2017 12:07 PM EDT) Glucose, POC 97 65 - 199 mg/dL [facility] Comment: Supplemental ranges: <140 mg/dL before meals <180 mg/dL all other times of the day Blood specimen (specimen) 07/23/2017 12:07 PM EDT 07/23/2017 12:07 PM EDT Sriram Contreras MD POINT OF CARE TEST ORDERABLES Performing Organization Address [facility] Co de Phone Number [facility] [place] [address] * (ABNORMAL) APTT (07/23/2017 8:27 AM EDT) Partial Thromboplastin Time 95(H) 25 - 35 sec [facility] Comment: The recommended therapeutic range for full dose, unfractionated heparin at [facility] is 80 ? 114 seconds. The use of the anti-Xa (heparin) level rather than the PTT is recommended for monitoring anticoagulation intensity in critically ill patients receiving unfractionated heparin by continuous IV infusion. Blood specimen (specimen) 07/23/2017 8:27 AM EDT 07/23/2017 8:51 AM EDT Narrative Resulting Agency Comment Spec In Lab Sriram Contreras MD HEMATOLOGY ORDERAB LES Performing Organization Address [facility] de Phone Number [facility] [place] [address] * POCT Glucose (07/23/2017 8:02 AM EDT) [facility] Glucose, POC 103 65 - 199 mg/dL [facility] Comment: Supplemental ranges: <140 mg/dL before meals <180 mg/dL all other times of the day Blood specimen (specimen) 07/23/2017 8:02 AM EDT 07/23/2017 8:02 AM EDT Sriram Contreras MD POINT OF CARE TEST ORDERABLES Performing Organization Address [facility] Co de Phone Number [facility] [place] [address] * (ABNORMAL) BLOOD GAS 2 ARTERIAL (07/23/2017 6:32 AM EDT) pH, Arterial 7.41 7.35 - 7.45 [facility] PCO2, Arterial 37 35 - 45 mmHg [facility] PO2, Arterial 60(L) 85 - 104 mmHg [facility] Bicarbonate, Arterial 22.6 20.0 - 26.0 mmol/L [facility] Base Excess, Arterial -2.0 -3.0 - 3.0 mmol/L [facility] Hgb Blood Gas 12.7(L) 13.7 - 16.5 gm/dL [facility] Oxyhemoglobin, Arterial 90.3(L) 94.0 - 97.0 % [facility] Carboxyhemoglob in, Arterial 0.3 % [facility] Comment: Nonsmokers: 0.5-1.5% COHB Smokers: Variable, but usually less than 10% Toxic: 20-30% COHB Lethal: Greater than 60% COHB Methemoglobin, Arterial 0.5 <=1.5 % [facility] Na Whole Blood 138 135 - 145 mmol/L [facility] K Whole Blood 3.7 3.5 - 5.0 mmol/L [facility] Comment: Please note: Patients with WBC >100,000 may have falsely elevated Potassium levels. Contact the Clinical Chemistry Laboratory if there are any questions. ICa Whole Blood 1.15(L) 1.15 - 1.33 mmol/L [facility] Comment: Note: ??Total bilirubin higher than 20 mg/dL may lead to falsely low ionized calcium. CL Whole Blood 109(H) 98 - 107 mmol/L [facility] Gluc Whole Bld 122 65 - 199 mg/dL [facility] Comment:Diabetes: >=200 mg/d L plus symptoms. Lactate WB 1.4 0.5 - 2.2 mmol/L [facility] FIO2 Art 30 % [facility] PF Ratio Art 200 [facility] Blood specimen (specimen) 07/23/2017 6:32 AM EDT 07/23/2017 6:32 AM EDT Sriram Contreras MD POINT OF CARE TEST ORDERABLES [facility] [place] [address] * Potassium (07/23/2017 4:15 AM EDT) Potassium 4.1 3.5 - 5.0 mmol/L [facility] Comment: Please note: ??Patients with [...] MD CHEMISTRY ORDERABL ES Performing Organization Address [facility]/ZIP Co de Phone Number [facility] [place] [address] * POCT Glucose (07/23/2017 3:50 AM EDT) [facility] Glucose, POC 126 65 - 199 mg/dL [facility] Comment: Supplemental ranges: <140 mg/dL before meals <180 mg/dL all other times of the day Blood specimen (specimen) 07/23/2017 3:50 AM EDT 07/23/2017 3:50 AM EDT Sriram Contreras MD POINT OF CARE TEST ORDERABLES Performing Organization Address [facility] Co de Phone Number [facility] [place] [address] * (ABNORMAL) APTT (07/23/2017 1:53 AM EDT) Partial Thromboplastin Time 119(H) 25 - 35 sec [facility] Comment: The recommended therapeutic range for full dose, unfractionated heparin at [facility] is 80 ? 114 seconds. The use of the anti-Xa (heparin) level rather than the PTT is recommended for monitoring anticoagulation intensity in critically ill patients receiving unfractionated heparin by continuous IV infusion. Blood specimen (specimen) 07/23/2017 1:53 AM EDT 07/23/2017 2:01 AM EDT Narrative Resulting Agency Comment Spec In Lab Sriram Contreras MD HEMATOLOGY ORDERAB LES Performing Organization Address [facility]/ZIP Co de Phone Number [facility] [place] [address] * (ABNORMAL) Differential, Automated (07/23/2017 12:45 AM EDT) Neutrophil % 63.2 % [facility] Neutrophil Absolute 6.47(H) 1.70 - 6.10 x10(3)/ L [facility] Lymph % 20.9 % [facility] Lymphocytes Abs 2.1 0.9 - 3.2 x10(3)/ L [facility] Monocyte % 7.6 % [facility] Monocyte Abs 0.8 0.3 - 0.9 x10(3)/ L [facility] Eos % 2.8 % [facility] Eosinophils Abs 0.3 0.0 - 0.4 x10(3)/ L [facility] Basophil % 0.7 % [facility] Baso Absolute 0.1 0.0 - 0.1 x10(3)/ L [facility] Immature Gran % 4.80 % [facility] Comment: Immature granulocytes(IG's)percentage and absolute count will include metamyelocytes, myelocytes, and promyelocytes. Blood smears from CBCs yielding IG's will be scanned manually for concordance. If this scan disagrees with the automated IG or if promyelocytes are noted, a manual differential will be performed. Immature Gran Absolute 0.49(H) 0.00 - 0.04 x10(3)/ L [facility] Blood specimen (specimen) 07/23/2017 12:45 AM EDT 07/23/2017 12:51 AM EDT Narrative Resulting Agency Comment Spec In Lab Sriram Contreras MD HEMATOLOGY ORDERAB LES [facility] [place] [address] * (ABNORMAL) Hemogram (07/23/2017 12:45 AM EDT) White Blood Cell 10.2(H) 4.0 - 9.5 x10(3)/mc L [facility] Red Blood Cell 3.62(L) 4.58 - 5.54 x10(6)/mc L [facility] Hemoglobin 11.1(L) 13.7 - 16.5 gm/dL [facility] Hematocrit 33.5(L) 40.5 - 48.5 % [facility] Mean Cell Volume 92.5 82.9 - 93.1 fL [facility] Mean Cell Hemoglobin 30.7 27.5 - 32.1 pg [facility] Mean Cell Hemoglobin Concentration 33.1 32.0 - 35.7 gm/dL [facility] Platelet 165 145 - 357 x10(3)/ L [facility] RDW Standard Deviation 46.6(H) 36.0 - 45.0 fL [facility] RDW coefficient of variation 13.7 11.4 - 13.8 % [facility] Mean Platelet Volume 9.9 7.6 - 12.9 fL [facility] NRBC% auto 0.0 % [facility] NRBC Absolute 0.000 0.000 - 0.000 x10(3)/ L [facility] Blood specimen (specimen) 07/23/2017 12:45 AM EDT 07/23/2017 12:51 AM EDT Narrative Resulting Agency Comment Spec In Lab Sriram Contreras MD HEMATOLOGY ORDERAB LES [facility] [place] [address] * (ABNORMAL) Basic Metabolic Panel (non-fasting) (07/23/2017 12:45 AM EDT) Glucose 127 65 - 199 mg/dL [facility] Comment:Diabetes: >=200 mg/d L plus symptoms Blood Urea Nitrogen 20 10 - 20 mg/dL [facility] Creatinine 0.65(L) 0.80 - 1.50 mg/dL [facility] Comment: Please note that the pediatric reference intervals supplied above were not validated at [facility]. Results from pediatric patients should be interpreted in conjunction to the patient's age, height and muscle mass. Sodium 142 135 - 145 mmol/L [facility] Potassium 3.7 3.5 - 5.0 mmol/L [facility] Comment: Please note: ??Patients with WBC >100,000 may have falsely elevated Potassium levels. ??For accurate Potassium quantification in these patients send serum separator tube (gold top) for subsequent determinations. ??Contact the Clinical Chemistry Laboratory if there are any questions. Chloride 105 98 - 107 mmol/L [facility] Carbon Dioxide 26 22 - 31 mmol/L [facility] Anion Gap 11 5 - 15 mmol/L [facility] Calcium 8.3(L) 8.5 - 10.5 mg/dL [facility] Est Glomerular Filtration Rate >60 >=60 [facility] Comment: This estimated GFR (eGFR) [...] the following links into your internet browser. [email or web address] Blood specimen (specimen) 07/23/2017 12:45 AM EDT 07/23/2017 12:51 AM EDT Narrative Resulting Agency Comment Spec In Lab Sriram Contreras MD CHEMISTRY ORDERABL ES [facility] [place] [address] * POCT Glucose (07/22/2017 11:59 PM EDT) Glucose, POC 113 65 - 199 mg/dL [facility] Comment: Supplemental ranges: <140 mg/dL before meals <180 mg/dL all other times of the day Blood specimen (specimen) 07/22/2017 11:59 PM EDT 07/22/2017 11:59 PM EDT Sriram Contreras MD POINT OF CARE TEST ORDERABLES Performing Organization Address [facility] Co de Phone Number [facility] [place] [address] * POCT Glucose (07/22/2017 8:07 PM EDT) Glucose, POC 111 65 - 199 mg/dL [facility] Comment: Supplemental ranges: <140 mg/dL before meals <180 mg/dL all other times of the day Blood specimen (specimen) 07/22/2017 8:07 PM EDT 07/22/2017 8:07 PM EDT Sriram Contreras MD POINT OF CARE TEST ORDERABLES Performing Organization Address [facility] Co de Phone Number [facility] [place] [address] * POCT Glucose (07/22/2017 4:00 PM EDT) Glucose, POC 112 65 - 199 mg/dL [facility] Comment: Supplemental ranges: <140 mg/dL before meals <180 mg/dL all other times of the day Blood specimen (specimen) 07/22/2017 4:00 PM EDT 07/22/2017 4:00 PM EDT Sriram Contreras MD POINT OF CARE TEST ORDERABLES [facility] [place] [address] * (ABNORMAL) APTT (07/22/2017 4:00 PM EDT) Partial Thromboplastin Time 92(H) 25 - 35 sec [facility] Comment: The recommended therapeutic range for full dose, unfractionated heparin at [facility] is 80 ? 114 seconds. The use of the anti-Xa (heparin) level rather than the PTT is recommended for monitoring anticoagulation intensity in critically ill patients receiving unfractionated heparin by continuous IV infusion. Blood specimen (specimen) 07/22/2017 4:00 PM EDT 07/22/2017 4:18 PM EDT Narrative Resulting Agency Comment Spec In Lab Sriram Contreras MD HEMATOLOGY ORDERAB LES Performing Organization Address [facility] Co de Phone Number [facility] [place] [address] * POCT Glucose (07/22/2017 11:45 AM EDT) [facility] Glucose, POC 111 65 - 199 mg/dL [facility] Comment: Supplemental ranges: <140 mg/dL before meals <180 mg/dL all other times of the day Blood specimen (specimen) 07/22/2017 11:45 AM EDT 07/22/2017 11:45 AM EDT Sriram Contreras MD POINT OF CARE TEST ORDERABLES Performing Organization Address [facility] Co de Phone Number [facility] [place] [address] * (ABNORMAL) APTT (07/22/2017 8:30 AM EDT) Partial Thromboplastin Time 83(H) 25 - 35 sec [facility] Comment: The recommended therapeutic range for full dose, unfractionated heparin at [facility] is 80 ? 114 seconds. The use of the anti-Xa (heparin) level rather than the PTT is recommended for monitoring anticoagulation intensity in critically ill patients receiving unfractionated heparin by continuous IV infusion. Blood specimen (specimen) 07/22/2017 8:30 AM EDT 07/22/2017 8:39 AM EDT Narrative Resulting Agency Comment Spec In Lab Sriram Contreras MD HEMATOLOGY ORDERAB LES Performing Organization Address [facility] Co de Phone Number [facility] [place] [address] * POCT Glucose (07/22/2017 8:28 AM EDT) Pathologist [facility] Glucose, POC 118 65 - 199 mg/dL [facility] Comment: Supplemental ranges: <140 mg/dL before meals <180 mg/dL all other times of the day Blood specimen (specimen) 07/22/2017 8:28 AM EDT 07/22/2017 8:28 AM EDT Sriram Contreras MD POINT OF CARE TEST ORDERABLES Performing Organization Address [facility] Co de Phone Number [facility] [place] [address] * (ABNORMAL) BLOOD GAS 2 ARTERIAL (07/22/2017 8:27 AM EDT) pH, Arterial 7.42 7.35 - 7.45 [facility] PCO2, Arterial 39 35 - 45 mmHg [facility] PO2, Arterial 78(L) 85 - 104 mmHg [facility] Bicarbonate, Arterial 24.8 20.0 - 26.0 mmol/L [facility] Base Excess, Arterial 0.3 -3.0 - 3.0 mmol/L [facility] Hgb Blood Gas 13.4(L) 13.7 - 16.5 gm/dL [facility] Oxyhemoglobin, Arterial 94.2 94.0 - 97.0 % [facility] Carboxyhemoglob in, Arterial 0.3 % [facility] Comment: Nonsmokers: 0.5-1.5% COHB Smokers: Variable, but usually less than 10% Toxic: 20-30% COHB Lethal: Greater than 60% COHB Methemoglobin, Arterial 0.6 <=1.5 % [facility] Na Whole Blood 140 135 - 145 mmol/L [facility] K Whole Blood 3.8 3.5 - 5.0 mmol/L [facility] Comment: Please note: Patients with WBC >100,000 may have falsely elevated Potassium levels. Contact the Clinical Chemistry Laboratory if there are any questions. ICa Whole Blood 1.21 1.15 - 1.33 mmol/L [facility] Comment: Note: ??Total bilirubin higher than 20 mg/dL may lead to falsely low ionized calcium. CL Whole Blood 107 98 - 107 mmol/L [facility] Gluc Whole Bld 130 65 - 199 mg/dL [facility] Comment:Diabetes: >=200 mg/d L plus symptoms. Lactate WB 1.6 0.5 - 2.2 mmol/L [facility] FIO2 Art 40 % [facility] PF Ratio Art 195 [facility] Blood specimen (specimen) 07/22/2017 8:27 AM EDT 07/22/2017 8:27 AM EDT Sriram Contreras MD POINT OF CARE TEST ORDERABLES Performing Organization Address City/State/[facility] Co de Phone Number [facility] [place] [address] * (ABNORMAL) Differential, Automated (07/22/2017 3:10 AM EDT) Neutrophil % 72.0 % [facility] Neutrophil Absolute 8.75(H) 1.70 - 6.10 x10(3)/mc L [facility] Lymph % 15.0 % [facility] Lymphocytes Abs 1.8 0.9 - 3.2 x10(3)/mc L [facility] Monocyte % 8.0 % [facility] Monocyte Abs 1.0(H) 0.3 - 0.9 x10(3)/mc L [facility] Eos % 2.4 % [facility] Eosinophils Abs 0.3 0.0 - 0.4 x10(3)/[facility] Basophil % 0.3 % [facility] Baso Absolute 0.0 0.0 - 0.1 x10(3)/[facility] Immature Gran % 2.30 % [facility] Comment: Immature granulocytes(IG's)percentage and absolute count will include metamyelocytes, myelocytes, and promyelocytes. Blood smears from CBCs yielding IG's will be scanned manually for concordance. If this scan disagrees with the automated IG or if promyelocytes are noted, a manual differential will be performed. Immature Gran Absolute 0.28(H) 0.00 - 0.04 x10(3)/[facility] Blood specimen (specimen) 07/22/2017 3:10 AM EDT 07/22/2017 3:15 AM EDT Narrative Resulting Agency Comment Spec In Lab Sriram Contreras MD HEMATOLOGY ORDERAB LES Performing Organization Address City/State/[facility] Co de Phone Number [facility] [place] [address] * (ABNORMAL) Hemogram (07/22/2017 3:10 AM EDT) White Blood Cell 12.2(H) 4.0 - 9.5 x10(3)/ L [facility] Red Blood Cell 4.05(L) 4.58 - 5.54 x10(6)/mc L [facility] Hemoglobin 12.5(L) 13.7 - 16.5 gm/dL [facility] Hematocrit 37.9(L) 40.5 - 48.5 % [facility] Mean Cell Volume 93.6(H) 82.9 - 93.1 fL [facility] Mean Cell Hemoglobin 30.9 27.5 - 32.1 pg [facility] Mean Cell Hemoglobin Concentration 33.0 32.0 - 35.7 gm/dL [facility] Platelet 168 145 - 357 x10(3)/mc L [facility] RDW Standard Deviation 48.9(H) 36.0 - 45.0 fL [facility] RDW coefficient of variation 14.1(H) 11.4 - 13.8 % [facility] Mean Platelet Volume 10.2 7.6 - 12.9 fL [facility] NRBC% auto 0.0 % [facility] NRBC Absolute 0.000 0.000 - 0.000 x10(3)/mc L [facility] Blood specimen (specimen) 07/22/2017 3:10 AM EDT 07/22/2017 3:15 AM EDT Narrative Resulting Agency Comment Spec In Lab Sriram Contreras MD HEMATOLOGY ORDERAB LES Performing Organization Address [facility] de Phone Number [facility] [place] [address] * (ABNORMAL) APTT (07/22/2017 3:10 AM EDT) Partial Thromboplastin Time 89(H) 25 - 35 sec [facility] Comment: The recommended therapeutic range for full dose, unfractionated heparin at [facility] is 80 ? 114 seconds. The use of the anti-Xa (heparin) level rather than the PTT is recommended for monitoring anticoagulation intensity in critically ill patients receiving unfractionated heparin by continuous IV infusion. Blood specimen (specimen) 07/22/2017 3:10 AM EDT 07/22/2017 3:15 AM EDT Narrative Resulting Agency Comment Spec In Lab Sriram Contreras MD HEMATOLOGY ORDERAB LES Performing Organization Address [facility] Co de Phone Number [facility] [place] [address] * (ABNORMAL) Basic Metabolic Panel (non-fasting) (07/22/2017 3:10 AM EDT) Glucose 121 65 - 199 mg/dL [facility] Comment:Diabetes: >=200 mg/d L plus symptoms Blood Urea Nitrogen 23(H) 10 - 20 mg/dL [facility] Creatinine 0.76(L) 0.80 - 1.50 mg/dL [facility] Comment: Please note that the pediatric reference intervals supplied above were not validated at [facility]. Results from pediatric patients should be interpreted in conjunction to the patient's age, height and muscle mass. Sodium 144 135 - 145 mmol/L [facility] Potassium 3.9 3.5 - 5.0 mmol/L [facility] Comment: Please note: ??Patients with WBC >100,000 may have falsely elevated Potassium levels. ??For accurate Potassium quantification in these patients send serum separator tube (gold top) for subsequent determinations. ??Contact the Clinical Chemistry Laboratory if there are any questions. Chloride 106 98 - 107 mmol/L [facility] Carbon Dioxide 25 22 - 31 mmol/L [facility] Anion Gap 13 5 - 15 mmol/L [facility] Calcium 8.3(L) 8.5 - 10.5 mg/dL [facility] Est Glomerular Filtration Rate >60 >=60 [facility] Comment: This estimated GFR (eGFR) [...] the following links into your internet browser. [email or web address] Blood specimen (specimen) 07/22/2017 3:10 AM EDT 07/22/2017 3:15 AM EDT Narrative Resulting Agency Comment Spec In Lab Sriram Contreras MD CHEMISTRY ORDERABL ES [facility] [place] [address] * POCT Glucose (07/22/2017 3:08 AM EDT) Glucose, POC 109 65 - 199 mg/dL [facility] Comment: Supplemental ranges: <140 mg/dL before meals <180 mg/dL all other times of the day Blood specimen (specimen) 07/22/2017 3:08 AM EDT 07/22/2017 3:08 AM EDT Sriram Contreras MD POINT OF CARE TEST ORDERABLES [facility] [place] [address] * POCT Glucose (07/21/2017 11:52 PM EDT) Glucose, POC 135 65 - 199 mg/dL [facility] Comment: Supplemental ranges: <140 mg/dL before meals <180 mg/dL all other times of the day Blood specimen (specimen) 07/21/2017 11:52 PM EDT 07/21/2017 11:52 PM EDT Sriram Contreras MD POINT OF CARE TEST ORDERABLES Performing Organization Address City/[facility]/ZIP Co de Phone Number [facility] [place] [address] * EKG 12 Lead (07/21/2017 10:42 PM EDT) Ventricular rate 75 BPM MUSE SYSTEM Atrial Rate 258 BPM MUSE SYSTEM QRS Duration 86 ms MUSE SYSTEM Q-T Interval 400 ms MUSE SYSTEM QTC Calculated (Bezet) 446 ms MUSE SYSTEM Calculated R [place] 61 degrees MUSE SYSTEM Calculated T [place] 136 degrees MUSE SYSTEM INTERPRETATION Atrial fibrillation [...] Contreras MD ECG ORDERABLES Performing Organization Address City/[facility]/ZIP Co de Phone Number MUSE SYSTEM * Magnesium (07/21/2017 10:35 PM EDT) Magnesium 0.80 0.69 - 1.07 mmol/L [facility] Blood specimen (specimen) 07/21/2017 10:35 PM EDT 07/21/2017 10:40 PM EDT Narrative Resulting Agency Comment Spec In Lab Sriram Contreras MD CHEMISTRY ORDERABL ES Performing Organization Address [facility] de Phone Number [facility] [place] [address] * (ABNORMAL) Basic Metabolic Panel (non-fasting) (07/21/2017 10:35 PM EDT) Glucose 135 65 - 199 mg/dL [facility] Comment:Diabetes: >=200 mg/d L plus symptoms Blood Urea Nitrogen 23(H) 10 - 20 mg/dL [facility] Creatinine 0.88 0.80 - 1.50 mg/dL [facility] Comment: Please note that the pediatric reference intervals supplied above were not validated at [facility]. Results from pediatric patients should be interpreted in conjunction to the patient's age, height and muscle mass. Sodium 144 135 - 145 mmol/L [facility] Potassium 4.0 3.5 - 5.0 mmol/L [facility] Comment: Please note: ??Patients with WBC >100,000 may have falsely elevated Potassium levels. ??For accurate Potassium quantification in these patients send serum separator tube (gold top) for subsequent determinations. ??Contact the Clinical Chemistry Laboratory if there are any questions. Chloride 107 98 - 107 mmol/L [facility] Carbon Dioxide 25 22 - 31 mmol/L [facility] Anion Gap 12 5 - 15 mmol/L [facility] Calcium 8.7 8.5 - 10.5 mg/dL [facility] Est Glomerular Filtration Rate >60 >=60 [facility] Comment: This estimated GFR (eGFR) [...] the following links into your internet browser. [email or web address] Blood specimen (specimen) 07/21/2017 10:35 PM EDT 07/21/2017 10:40 PM EDT Narrative Resulting Agency Comment Spec In Lab Sriram Contrears MD CHEMISTRY ORDERABL ES Performing Organization Address [facility] de Phone Number [facility] [place] [address] * (ABNORMAL) APTT (07/21/2017 9:10 PM EDT) Partial Thromboplastin Time 87(H) 25 - 35 sec [facility] Comment: The recommended therapeutic range for full dose, unfractionated heparin at [facility] is 80 ? 114 seconds. The use of the anti-Xa (heparin) level rather than the PTT is recommended for monitoring anticoagulation intensity in critically ill patients receiving unfractionated heparin by continuous IV infusion. Blood specimen (specimen) 07/21/2017 9:10 PM EDT 07/21/2017 9:17 PM EDT Narrative Resulting Agency Comment Spec In Lab Sriram Contreras MD HEMATOLOGY ORDERAB LES Performing Organization Address [facility] Co de Phone Number [facility] [place] [address] * POCT Glucose (07/21/2017 7:49 PM EDT) Glucose, POC 117 65 - 199 mg/dL [facility] Comment: Supplemental ranges: <140 mg/dL before meals <180 mg/dL all other times of the day Blood specimen (specimen) 07/21/2017 7:49 PM EDT 07/21/2017 7:49 PM EDT Sriram Contreras MD POINT OF CARE TEST ORDERABLES Performing Organization Address [facility] Co de Phone Number [facility] [place] [address] * POCT Glucose (07/21/2017 4:10 PM EDT) Glucose, POC 116 65 - 199 mg/dL [facility] Comment: Supplemental ranges: <140 mg/dL before meals <180 mg/dL all other times of the day Blood specimen (specimen) 07/21/2017 4:10 PM EDT 07/21/2017 4:10 PM EDT Sriram Contreras MD POINT OF CARE TEST ORDERABLES Performing Organization Address [facility] de Phone Number [facility] [place] [address] * (ABNORMAL) APTT (07/21/2017 4:10 PM EDT) Partial Thromboplastin Time 78(H) 25 - 35 sec [facility] Comment: The recommended therapeutic range for full dose, unfractionated heparin at [facility] is 80 ? 114 seconds. The use of the anti-Xa (heparin) level rather than the PTT is recommended for monitoring anticoagulation intensity in critically ill patients receiving unfractionated heparin by continuous IV infusion. Blood specimen (specimen) 07/21/2017 4:10 PM EDT 07/21/2017 4:28 PM EDT Narrative Resulting Agency Comment Spec In Lab Sriram Contreras MD HEMATOLOGY ORDERAB LES Performing Organization Address [facility] Co de Phone Number [facility] [place] [address] * POCT Glucose (07/21/2017 12:04 PM EDT) Glucose, POC 138 65 - 199 mg/dL [facility] Comment: Supplemental ranges: <140 mg/dL before meals <180 mg/dL all other times of the day Blood specimen (specimen) 07/21/2017 12:04 PM EDT 07/21/2017 12:04 PM EDT Sriram Contreras MD POINT OF CARE TEST ORDERABLES Performing Organization Address [facility] de Phone Number [facility] [place] [address] * C. Difficile Screen (07/21/2017 9:00 AM EDT) Pathologist [facility] C Diff Interp Negative Negative [facility] Comment: C. diff ??Negative Clostridium [...] - GEN ERAL ORDERABLES Performing Organization Address [facility] Co de Phone Number [facility] [place] [address] * Potassium (07/21/2017 8:30 AM EDT) Pathologist [facility] Potassium 3.8 3.5 - 5.0 mmol/L [facility] Comment: Please note: ??Patients with [...] ORDERABL ES Performing Organization Address [facility] de Phone Number [facility] [place] [address] * (ABNORMAL) APTT (07/21/2017 8:30 AM EDT) Partial Thromboplastin Time 63(H) 25 - 35 sec [facility] Comment: The recommended therapeutic range for full dose, unfractionated heparin at [facility] is 80 ? 114 seconds. The use of the anti-Xa (heparin) level rather than the PTT is recommended for monitoring anticoagulation intensity in critically ill patients receiving unfractionated heparin by continuous IV infusion. Blood specimen (specimen) 07/21/2017 8:30 AM EDT 07/21/2017 8:40 AM EDT Narrative Resulting Agency Comment Spec In Lab Sriram Contreras MD HEMATOLOGY ORDERAB LES Performing Organization Address [facility] de Phone Number [facility] [place] [address] * POCT Glucose (07/21/2017 8:24 AM EDT) [facility] Glucose, POC 131 65 - 199 mg/dL [facility] Comment: Supplemental ranges: <140 mg/dL before meals <180 mg/dL all other times of the day Blood specimen (specimen) 07/21/2017 8:24 AM EDT 07/21/2017 8:24 AM EDT Sriram Contreras MD POINT OF CARE TEST ORDERABLES Performing Organization Address [facility] Co de Phone Number [facility] [place] [address] * (ABNORMAL) BLOOD GAS 2 ARTERIAL (07/21/2017 7:42 AM EDT) [facility] Signature pH, Arterial 7.44 7.35 - 7.45 [facility] PCO2, Arterial 37 35 - 45 mmHg [facility] PO2, Arterial 72(L) 85 - 104 mmHg [facility] Bicarbonate, Arterial 24.5 20.0 - 26.0 mmol/L [facility] Base Excess, Arterial 0.3 -3.0 - 3.0 mmol/L [facility] Hgb Blood Gas 14.0 13.7 - 16.5 gm/dL [facility] Oxyhemoglobin, Arterial 93.8(L) 94.0 - 97.0 % [facility] Carboxyhemoglob in, Arterial 0.3 % [facility] Comment: Nonsmokers: 0.5-1.5% COHB Smokers: Variable, but usually less than 10% Toxic: 20-30% COHB Lethal: Greater than 60% COHB Methemoglobin, Arterial 0.5 <=1.5 % [facility] Na Whole Blood 143 135 - 145 mmol/L [facility] K Whole Blood 4.0 3.5 - 5.0 mmol/L [facility] Comment: Please note: Patients with WBC >100,000 may have falsely elevated Potassium levels. Contact the Clinical Chemistry Laboratory if there are any questions. ICa Whole Blood 1.22 1.15 - 1.33 mmol/L [facility] Comment: Note: ??Total bilirubin higher than 20 mg/dL may lead to falsely low ionized calcium. CL Whole Blood 111(H) 98 - 107 mmol/L [facility] Gluc Whole Bld 148 65 - 199 mg/dL [facility] Comment:Diabetes: >=200 mg/d L plus symptoms. Lactate WB 1.5 0.5 - 2.2 mmol/L [facility] FIO2 Art 40 % [facility] PF Ratio Art 180 [facility] Blood specimen (specimen) 07/21/2017 7:42 AM EDT 07/21/2017 7:42 AM EDT Sriram Contreras MD POINT OF CARE TEST ORDERABLES Performing Organization Address [facility] de Phone Number [facility] [place] [address] * POCT Glucose (07/21/2017 3:21 AM EDT) [facility] Glucose, POC 116 65 - 199 mg/dL [facility] Comment: Supplemental ranges: <140 mg/dL before meals <180 mg/dL all other times of the day Blood specimen (specimen) 07/21/2017 3:21 AM EDT 07/21/2017 3:21 AM EDT Sriram Contreras MD POINT OF CARE TEST ORDERABLES Performing Organization Address [facility] de Phone Number [facility] [place] [address] * Potassium (07/21/2017 3:20 AM EDT) [facility] Potassium 4.0 3.5 - 5.0 mmol/L [facility] Comment: Please note: ??Patients with [...] MD CHEMISTRY ORDERABL ES Performing Organization Address [facility] Co de Phone Number [facility] [place] [address] * (ABNORMAL) APTT (07/21/2017 1:05 AM EDT) [facility] Partial Thromboplastin Time 42(H) 25 - 35 sec [facility] Comment: The recommended therapeutic range for full dose, unfractionated heparin at [facility] is 80 ? 114 seconds. The use of the anti-Xa (heparin) level rather than the PTT is recommended for monitoring anticoagulation intensity in critically ill patients receiving unfractionated heparin by continuous IV infusion. Blood specimen (specimen) 07/21/2017 1:05 AM EDT 07/21/2017 1:08 AM EDT Narrative Resulting Agency Comment Spec In Lab Sriram Contreras MD HEMATOLOGY ORDERAB LES [facility] [place] [address] * (ABNORMAL) Differential, Automated (07/21/2017 12:25 AM EDT) Neutrophil % 75.8 % [facility] Neutrophil Absolute 7.59(H) 1.70 - 6.10 x10(3)/ L [facility] Lymph % 12.8 % [facility] Lymphocytes Abs 1.3 0.9 - 3.2 x10(3)/ L [facility] Monocyte % 9.0 % [facility] Monocyte Abs 0.9 0.3 - 0.9 x10(3)/ L [facility] Eos % 1.1 % [facility] Eosinophils Abs 0.1 0.0 - 0.4 x10(3)/ L [facility] Basophil % 0.3 % [facility] Baso Absolute 0.0 0.0 - 0.1 x10(3)/ L [facility] Immature Gran % 1.00 % [facility] Comment: Immature granulocytes(IG's)percentage and absolute count will include metamyelocytes, myelocytes, and promyelocytes. Blood smears from CBCs yielding IG's will be scanned manually for concordance. If this scan disagrees with the automated IG or if promyelocytes are noted, a manual differential will be performed. Immature Gran Absolute 0.10(H) 0.00 - 0.04 x10(3)/mc L [facility] Blood specimen (specimen) 07/21/2017 12:25 AM EDT 07/21/2017 12:48 AM EDT Narrative Resulting Agency Comment Spec In Lab Sriram Contreras MD HEMATOLOGY ORDERAB LES Performing Organization Address City/[facility]/ZIP Co de Phone Number [facility] [place] [address] * (ABNORMAL) Hemogram (07/21/2017 12:25 AM EDT) White Blood Cell 10.0(H) 4.0 - 9.5 x10(3)/ L [facility] Red Blood Cell 4.24(L) 4.58 - 5.54 x10(6)/mc L [facility] Hemoglobin 13.2(L) 13.7 - 16.5 gm/dL [facility] Hematocrit 39.4(L) 40.5 - 48.5 % [facility] Mean Cell Volume 92.9 82.9 - 93.1 [facility] Mean Cell Hemoglobin 31.1 27.5 - 32.1 [facility] Mean Cell Hemoglobin Concentration 33.5 32.0 - 35.7 gm/dL [facility] Platelet 163 145 - 357 x10(3)/mc L [facility] RDW Standard Deviation 48.0(H) 36.0 - 45.0 [facility] RDW coefficient of variation 14.1(H) 11.4 - 13.8 % [facility] Mean Platelet Volume 10.2 7.6 - 12.9 [facility] NRBC% auto 0.0 % [facility] NRBC Absolute 0.000 0.000 - 0.000 x10(3)/[facility] Blood specimen (specimen) 07/21/2017 12:25 AM EDT 07/21/2017 12:48 AM EDT Narrative Resulting Agency Comment Spec In Lab Sriram Contreras MD HEMATOLOGY ORDERAB LES Performing Organization Address City/[facility]/ZIP Co de Phone Number [facility] [place] [address] * (ABNORMAL) Basic Metabolic Panel (non-fasting) (07/21/2017 12:25 AM EDT) Glucose 132 65 - 199 mg/dL [facility] Comment:Diabetes: >=200 mg/d L plus symptoms Blood Urea Nitrogen 22(H) 10 - 20 mg/dL [facility] Creatinine 0.79(L) 0.80 - 1.50 mg/dL [facility] Comment: Please note that the pediatric reference intervals supplied above were not validated at [facility]. Results from pediatric patients should be interpreted in conjunction to the patient's age, height and muscle mass. Sodium 146(H) 135 - 145 mmol/L [facility] Potassium 3.8 3.5 - 5.0 mmol/L [facility] Comment: Please note: ??Patients with WBC >100,000 may have falsely elevated Potassium levels. ??For accurate Potassium quantification in these patients send serum separator tube (gold top) for subsequent determinations. ??Contact the Clinical Chemistry Laboratory if there are any questions. Chloride 110(H) 98 - 107 mmol/L [facility] Carbon Dioxide 25 22 - 31 mmol/L [facility] Anion Gap 11 5 - 15 mmol/L [facility] Calcium 8.5 8.5 - 10.5 mg/dL [facility] Est Glomerular Filtration Rate >60 >=60 [facility] Comment: This estimated GFR (eGFR) [...] the following links into your internet browser. [email or web address] Blood specimen (specimen) 07/21/2017 12:25 AM EDT 07/21/2017 12:48 AM EDT Narrative Resulting Agency Comment Spec In Lab Sriram Contreras MD CHEMISTRY ORDERABL ES [facility] [place] [address] * (ABNORMAL) BLOOD GAS 2 ARTERIAL (07/21/2017 12:21 AM EDT) pH, Arterial 7.44 7.35 - 7.45 [facility] PCO2, Arterial 37 35 - 45 mmHg [facility] PO2, Arterial 70(L) 85 - 104 mmHg [facility] Bicarbonate, Arterial 24.1 20.0 - 26.0 mmol/L [facility] Base Excess, Arterial 0.1 -3.0 - 3.0 mmol/L [facility] Hgb Blood Gas 14.3 13.7 - 16.5 gm/dL [facility] Oxyhemoglobin, Arterial 92.8(L) 94.0 - 97.0 % [facility] Carboxyhemoglob in, Arterial 0.0 % [facility] Comment: Nonsmokers: 0.5-1.5% COHB Smokers: Variable, but usually less than 10% Toxic: 20-30% COHB Lethal: Greater than 60% COHB Methemoglobin, Arterial 0.4 <=1.5 % [facility] Na Whole Blood 145 135 - 145 mmol/L [facility] K Whole Blood 3.9 3.5 - 5.0 mmol/L [facility] Comment: Please note: Patients with WBC >100,000 may have falsely elevated Potassium levels. Contact the Clinical Chemistry Laboratory if there are any questions. ICa Whole Blood 1.21 1.15 - 1.33 mmol/L [facility] Comment: Note: ??Total bilirubin higher than 20 mg/dL may lead to falsely low ionized calcium. CL Whole Blood 110(H) 98 - 107 mmol/L [facility] Gluc Whole Bld 132 65 - 199 mg/dL [facility] Comment:Diabetes: >=200 mg/d L plus symptoms. Lactate WB 1.1 0.5 - 2.2 mmol/L [facility] FIO2 Art 40 % [facility] PF Ratio Art 175 [facility] Temp Art 37.8 Celsius [facility] Blood specimen (specimen) 07/21/2017 12:21 AM EDT 07/21/2017 12:21 AM EDT Sriram Contreras MD POINT OF CARE TEST ORDERABLES Performing Organization Address [facility]/State/ZIP Co de Phone Number [facility] [place] [address] * POCT Glucose (07/21/2017 12:00 AM EDT) Glucose, POC 119 65 - 199 mg/dL [facility] Comment: Supplemental ranges: <140 mg/dL before meals <180 mg/dL all other times of the day Blood specimen (specimen) 07/21/2017 07/21/2017 Sriram Contreras MD POINT OF CARE TEST ORDERABLES Performing Organization Address [facility] Co de Phone Number [facility] [place] [address] * Potassium (07/20/2017 9:50 PM EDT) Potassium 4.1 3.5 - 5.0 mmol/L [facility] Comment: Please note: ??Patients with [...] MD CHEMISTRY ORDERABL ES Performing Organization Address [facility] Co de Phone Number [facility] [place] [address] * EKG 12 Lead (07/20/2017 8:40 PM EDT) [facility] Ventricular rate 77 BPM MUSE SYSTEM Atrial Rate 394 BPM MUSE SYSTEM QRS Duration 86 ms MUSE SYSTEM Q-T Interval 396 ms MUSE SYSTEM QTC Calculated (Bezet) 448 ms MUSE SYSTEM Calculated R [place] 73 degrees MUSE SYSTEM Calculated T [place] 127 degrees MUSE SYSTEM INTERPRETATION Atrial fibrillation [...] Aguero APRN ECG ORDERABLES Performing Organization Address [facility] de Phone Number MUSE SYSTEM * POCT Glucose (07/20/2017 7:28 PM EDT) [facility] Glucose, POC 126 65 - 199 mg/dL [facility] Comment: Supplemental ranges: <140 mg/dL before meals <180 mg/dL all other times of the day Blood specimen (specimen) 07/20/2017 7:28 PM EDT 07/20/2017 7:28 PM EDT Sriram Contreras MD POINT OF CARE TEST ORDERABLES Performing Organization Address [facility] Co de Phone Number [facility] [place] [address] * (ABNORMAL) Differential, Automated (07/20/2017 5:15 PM EDT) [facility] Neutrophil % 79.7 % [facility] Neutrophil Absolute 8.01(H) 1.70 - 6.10 x10(3)/mc L [facility] Lymph % 10.4 % [facility] Lymphocytes Abs 1.0 0.9 - 3.2 x10(3)/ L [facility] Monocyte % 8.0 % [facility] Monocyte Abs 0.8 0.3 - 0.9 x10(3)/[facility] Eos % 0.7 % [facility] Eosinophils Abs 0.1 0.0 - 0.4 x10(3)/[facility] Basophil % 0.2 % [facility] Baso Absolute 0.0 0.0 - 0.1 x10(3)/[facility] Immature Gran % 1.00 % [facility] Comment: Immature granulocytes(IG's)percentage and absolute count will include metamyelocytes, myelocytes, and promyelocytes. Blood smears from CBCs yielding IG's will be scanned manually for concordance. If this scan disagrees with the automated IG or if promyelocytes are noted, a manual differential will be performed. Immature Gran Absolute 0.10(H) 0.00 - 0.04 x10(3)/[facility] Blood specimen (specimen) 07/20/2017 5:15 PM EDT 07/20/2017 5:26 PM EDT Narrative Resulting Agency Comment Spec In Lab Sriram Contreras MD HEMATOLOGY ORDERAB LES Performing Organization Address City/State/[facility] Co de Phone Number [facility] [place] [address] * (ABNORMAL) Hemogram (07/20/2017 5:15 PM EDT) White Blood Cell 10.0(H) 4.0 - 9.5 x10(3)/[facility] Red Blood Cell 4.28(L) 4.58 - 5.54 x10(6)/[facility] Hemoglobin 13.3(L) 13.7 - 16.5 gm/dL [facility] Hematocrit 39.9(L) 40.5 - 48.5 % [facility] Mean Cell Volume 93.2(H) 82.9 - 93.1 fL [facility] Mean Cell Hemoglobin 31.1 27.5 - 32.1 pg [facility] Mean Cell Hemoglobin Concentration 33.3 32.0 - 35.7 gm/dL [facility] Platelet 163 145 - 357 x10(3)/mc L [facility] RDW Standard Deviation 47.7(H) 36.0 - 45.0 fL [facility] RDW coefficient of variation 14.1(H) 11.4 - 13.8 % [facility] Mean Platelet Volume 10.1 7.6 - 12.9 fL [facility] NRBC% auto 0.0 % [facility] NRBC Absolute 0.000 0.000 - 0.000 x10(3)/mc L [facility] Blood specimen (specimen) 07/20/2017 5:15 PM EDT 07/20/2017 5:26 PM EDT Narrative Resulting Agency Comment Spec In Lab Sriram Contreras MD HEMATOLOGY ORDERAB LES Performing Organization Address City/[facility]/ZIP Co de Phone Number [facility] [place] [address] * APTT (07/20/2017 5:15 PM EDT) [facility] Partial Thromboplastin Time 28 25 - 35 sec [facility] Comment: The recommended therapeutic range for full dose, unfractionated heparin at [facility] is 80 ? 114 seconds. The use of the anti-Xa (heparin) level rather than the PTT is recommended for monitoring anticoagulation intensity in critically ill patients receiving unfractionated heparin by continuous IV infusion. Blood specimen (specimen) 07/20/2017 5:15 PM EDT 07/20/2017 5:26 PM EDT Narrative Resulting Agency Comment Spec In Lab Sriram Contreras MD HEMATOLOGY ORDERAB LES [facility] [place] [address] * Magnesium (07/20/2017 4:50 PM EDT) Magnesium 1.00 0.69 - 1.07 mmol/L [facility] Blood specimen (specimen) 07/20/2017 4:50 PM EDT 07/20/2017 5:10 PM EDT Narrative Resulting Agency Comment Spec In Lab Sylvia Vaughn MD CHEMISTRY ORDERABLES [facility] [place] [address] * (ABNORMAL) Basic Metabolic Panel (non-fasting) (07/20/2017 4:50 PM EDT) Glucose 143 65 - 199 mg/dL [facility] Comment:Diabetes: >=200 mg/d L plus symptoms Blood Urea Nitrogen 23(H) 10 - 20 mg/dL [facility] Creatinine 0.85 0.80 - 1.50 mg/dL [facility] Comment: Please note that the pediatric reference intervals supplied above were not validated at [facility]. Results from pediatric patients should be interpreted in conjunction to the patient's age, height and muscle mass. Sodium 146(H) 135 - 145 mmol/L [facility] Potassium 3.9 3.5 - 5.0 mmol/L [facility] Comment: Please note: ??Patients with WBC >100,000 may have falsely elevated Potassium levels. ??For accurate Potassium quantification in these patients send serum separator tube (gold top) for subsequent determinations. ??Contact the Clinical Chemistry Laboratory if there are any questions. Chloride 110(H) 98 - 107 mmol/L [facility] Carbon Dioxide 25 22 - 31 mmol/L [facility] Anion Gap 11 5 - 15 mmol/L [facility] Calcium 8.5 8.5 - 10.5 mg/dL [facility] Est Glomerular Filtration Rate >60 >=60 [facility] Comment: This estimated GFR (eGFR) [...] the following links into your internet browser. [email or web address] Blood specimen (specimen) 07/20/2017 4:50 PM EDT 07/20/2017 5:10 PM EDT Narrative Resulting Agency Comment Spec In Lab Sylvia Vaughn MD CHEMISTRY ORDERABLES Performing Organization Address [facility] Co de Phone Number [facility] [place] [address] * POCT Glucose (07/20/2017 3:41 PM EDT) Glucose, POC 138 65 - 199 mg/dL [facility] Comment: Supplemental ranges: <140 mg/dL before meals <180 mg/dL all other times of the day Blood specimen (specimen) 07/20/2017 3:41 PM EDT 07/20/2017 3:41 PM EDT Sriram Contreras MD POINT OF CARE TEST ORDERABLES Performing Organization Address [facility] Co de Phone Number [facility] [place] [address] * CTA Chest for Pulmonary Embolus w [...] suggestive of normal upper respiratory yung (A) [facility] Gram Stain Many White Blood Cells seen Few squamous epithelial cells seen Many Gram Negative Rods seen Many mixed bacterial morphotypes suggestive of normal upper respiratory yung (A) [facility] Organism Enterobacter aerogenes(A) [facility] Organism Gram Negative Rods(A) [facility] Specimen from trachea obtained by [...] - GEN ERAL ORDERABLES Performing Organization Address City/[facility] Co de Phone Number [facility] [place] [address] * POCT Glucose (07/20/2017 11:45 AM EDT) Glucose, POC 125 65 - 199 mg/dL [facility] Comment: Supplemental ranges: <140 mg/dL before meals <180 mg/dL all other times of the day Blood specimen (specimen) 07/20/2017 11:45 AM EDT 07/20/2017 11:45 AM EDT Sriram Contreras MD POINT OF CARE TEST ORDERABLES Performing Organization Address [facility] Co de Phone Number [facility] [place] [address] * (ABNORMAL) BLOOD GAS 2 ARTERIAL (07/20/2017 11:43 AM EDT) pH, Arterial 7.45 7.35 - 7.45 [facility] PCO2, Arterial 35 35 - 45 mmHg [facility] PO2, Arterial 57(L) 85 - 104 mmHg [facility] Bicarbonate, Arterial 23.9 20.0 - 26.0 mmol/L [facility] Base Excess, Arterial 0.1 -3.0 - 3.0 mmol/L [facility] Hgb Blood Gas 14.6 13.7 - 16.5 gm/dL [facility] Oxyhemoglobin, Arterial 89.5(L) 94.0 - 97.0 % [facility] Carboxyhemoglob in, Arterial 0.0 % [facility] Comment: Nonsmokers: 0.5-1.5% COHB Smokers: Variable, but usually less than 10% Toxic: 20-30% COHB Lethal: Greater than 60% COHB Methemoglobin, Arterial 0.5 <=1.5 % [facility] Na Whole Blood 145 135 - 145 mmol/L [facility] K Whole Blood 3.9 3.5 - 5.0 mmol/L [facility] Comment: Please note: Patients with WBC >100,000 may have falsely elevated Potassium levels. Contact the Clinical Chemistry Laboratory if there are any questions. ICa Whole Blood 1.23 1.15 - 1.33 mmol/L [facility] Comment: Note: ??Total bilirubin higher than 20 mg/dL may lead to falsely low ionized calcium. CL Whole Blood 110(H) 98 - 107 mmol/L [facility] Gluc Whole Bld 136 65 - 199 mg/dL [facility] Comment:Diabetes: >=200 mg/d L plus symptoms. Lactate WB 1.3 0.5 - 2.2 mmol/L [facility] FIO2 Art 35 % [facility] PF Ratio Art 163 [facility] Temp Art 37.6 Celsius [facility] Blood specimen (specimen) 07/20/2017 11:43 AM EDT 07/20/2017 11:43 AM EDT Sriram Contreras MD POINT OF CARE TEST ORDERABLES [facility] [place] [address] * Potassium (07/20/2017 10:15 AM EDT) Potassium 4.1 3.5 - 5.0 mmol/L [facility] Comment: Please note: ??Patients with [...] Lab Sriram Contreras MD CHEMISTRY ORDERABL ES [facility] [place] [address] * XR Chest PA or AP 1 [...] failure Location of Procedure: ICU [facility]. Risks and Benefits: The risks [...] Glucose, POC 134 65 - 199 mg/dL [facility] Comment: Supplemental ranges: <140 mg/dL before meals <180 mg/dL all other times of the day Blood specimen (specimen) 07/20/2017 7:29 AM EDT 07/20/2017 7:29 AM EDT Sriram Contreras MD POINT OF CARE TEST ORDERABLES Performing Organization Address [facility] Co de Phone Number [facility] [place] [address] * Potassium (07/20/2017 7:28 AM EDT) Pathologist [facility] Potassium 4.0 3.5 - 5.0 mmol/L [facility] Comment: Please note: ??Patients with [...] MD CHEMISTRY ORDERABL ES Performing Organization Address [facility] de Phone Number [facility] [place] [address] * (ABNORMAL) Differential, Automated (07/20/2017 3:15 AM EDT) Neutrophil % 83.6 % [facility] Neutrophil Absolute 8.93(H) 1.70 - 6.10 x10(3)/mc L [facility] Lymph % 9.1 % [facility] Lymphocytes Abs 1.0 0.9 - 3.2 x10(3)/mc L [facility] Monocyte % 6.3 % [facility] Monocyte Abs 0.7 0.3 - 0.9 x10(3)/mc L [facility] Eos % 0.1 % [facility] Eosinophils Abs 0.0 0.0 - 0.4 x10(3)/mc L [facility] Basophil % 0.2 % [facility] Baso Absolute 0.0 0.0 - 0.1 x10(3)/ L [facility] Immature Gran % 0.70 % [facility] Comment: Immature granulocytes(IG's)percentage and absolute count will include metamyelocytes, myelocytes, and promyelocytes. Blood smears from CBCs yielding IG's will be scanned manually for concordance. If this scan disagrees with the automated IG or if promyelocytes are noted, a manual differential will be performed. Immature Gran Absolute 0.07(H) 0.00 - 0.04 x10(3)/[facility] Blood specimen (specimen) 07/20/2017 3:15 AM EDT 07/20/2017 3:58 AM EDT Narrative Resulting Agency Comment Spec In Lab Sriram Contreras MD HEMATOLOGY ORDERAB LES Performing Organization Address City/State/[facility] Co de Phone Number [facility] [place] [address] * (ABNORMAL) Hemogram (07/20/2017 3:15 AM EDT) White Blood Cell 10.7(H) 4.0 - 9.5 x10(3)/[facility] Red Blood Cell 4.40(L) 4.58 - 5.54 x10(6)/ L [facility] Hemoglobin 13.7 13.7 - 16.5 gm/dL [facility] Hematocrit 39.6(L) 40.5 - 48.5 % [facility] Mean Cell Volume 90.0 82.9 - 93.1 fL [facility] Mean Cell Hemoglobin 31.1 27.5 - 32.1 pg [facility] Mean Cell Hemoglobin Concentration 34.6 32.0 - 35.7 gm/dL [facility] Platelet 186 145 - 357 x10(3)/ L [facility] RDW Standard Deviation 45.8(H) 36.0 - 45.0 fL [facility] RDW coefficient of variation 13.9(H) 11.4 - 13.8 % [facility] Mean Platelet Volume 9.9 7.6 - 12.9 fL [facility] NRBC% auto 0.0 % [facility] NRBC Absolute 0.000 0.000 - 0.000 x10(3)/mc L [facility] Blood specimen (specimen) 07/20/2017 3:15 AM EDT 07/20/2017 3:58 AM EDT Narrative Resulting Agency Comment Spec In Lab Sriram Contreras MD HEMATOLOGY ORDERAB LES [facility] [place] [address] * (ABNORMAL) Basic Metabolic Panel (non-fasting) (07/20/2017 3:15 AM EDT) Glucose 126 65 - 199 mg/dL [facility] Comment:Diabetes: >=200 mg/d L plus symptoms Blood Urea Nitrogen 23(H) 10 - 20 mg/dL [facility] Creatinine 0.97 0.80 - 1.50 mg/dL [facility] Comment: Please note that the pediatric reference intervals supplied above were not validated at [facility]. Results from pediatric patients should be interpreted in conjunction to the patient's age, height and muscle mass. Sodium 143 135 - 145 mmol/L [facility] Potassium 3.9 3.5 - 5.0 mmol/L [facility] Comment: Please note: ??Patients with WBC >100,000 may have falsely elevated Potassium levels. ??For accurate Potassium quantification in these patients send serum separator tube (gold top) for subsequent determinations. ??Contact the Clinical Chemistry Laboratory if there are any questions. Chloride 106 98 - 107 mmol/L [facility] Carbon Dioxide 23 22 - 31 mmol/L [facility] Anion Gap 14 5 - 15 mmol/L [facility] Calcium 8.5 8.5 - 10.5 mg/dL [facility] Est Glomerular Filtration Rate >60 >=60 [facility] Comment: This estimated GFR (eGFR) [...] the following links into your internet browser. [email or web address] Blood specimen (specimen) 07/20/2017 3:15 AM EDT 07/20/2017 3:58 AM EDT Narrative Resulting Agency Comment Spec In Lab Sriram Contreras MD CHEMISTRY ORDERABL ES Performing Organization Address City/[facility] Co de Phone Number [facility] [place] [address] * POCT Glucose (07/20/2017 3:13 AM EDT) Glucose, POC 114 65 - 199 mg/dL [facility] Comment: Supplemental ranges: <140 mg/dL before meals <180 mg/dL all other times of the day Blood specimen (specimen) 07/20/2017 3:13 AM EDT 07/20/2017 3:13 AM EDT Sriram Contreras MD POINT OF CARE TEST ORDERABLES Performing Organization Address [facility]/ZIP Co de Phone Number [facility] [place] [address] * (ABNORMAL) BLOOD GAS 2 ARTERIAL (07/19/2017 11:36 PM EDT) pH, Arterial 7.51(H) 7.35 - 7.45 [facility] PCO2, Arterial 29(L) 35 - 45 mmHg [facility] PO2, Arterial 77(L) 85 - 104 mmHg [facility] Bicarbonate, Arterial 22.2 20.0 - 26.0 mmol/L [facility] Base Excess, Arterial -0.8 -3.0 - 3.0 mmol/L [facility] Hgb Blood Gas 14.7 13.7 - 16.5 gm/dL [facility] Oxyhemoglobin, Arterial 94.7 94.0 - 97.0 % [facility] Carboxyhemoglob in, Arterial 0.3 % [facility] Comment: Nonsmokers: 0.5-1.5% COHB Smokers: Variable, but usually less than 10% Toxic: 20-30% COHB Lethal: Greater than 60% COHB Methemoglobin, Arterial 0.7 <=1.5 % [facility] Na Whole Blood 142 135 - 145 mmol/L [facility] K Whole Blood 3.8 3.5 - 5.0 mmol/L [facility] Comment: Please note: Patients with WBC >100,000 may have falsely elevated Potassium levels. Contact the Clinical Chemistry Laboratory if there are any questions. ICa Whole Blood 1.19 1.15 - 1.33 mmol/L [facility] Comment: Note: ??Total bilirubin higher than 20 mg/dL may lead to falsely low ionized calcium. CL Whole Blood 109(H) 98 - 107 mmol/L [facility] Gluc Whole Bld 125 65 - 199 mg/dL [facility] Comment:Diabetes: >=200 mg/d L plus symptoms. Lactate WB 1.6 0.5 - 2.2 mmol/L [facility] FIO2 Art 50 % [facility] PF Ratio Art 154 [facility] Blood specimen (specimen) 07/19/2017 11:36 PM EDT 07/19/2017 11:36 PM EDT Sriram Contreras MD POINT OF CARE TEST ORDERABLES [facility] [place] [address] * POCT Glucose (07/19/2017 11:31 PM EDT) Glucose, POC 110 65 - 199 mg/dL [facility] Comment: Supplemental ranges: <140 mg/dL before meals <180 mg/dL all other times of the day Blood specimen (specimen) 07/19/2017 11:31 PM EDT 07/19/2017 11:31 PM EDT Sriram Contreras MD POINT OF CARE TEST ORDERABLES Performing Organization Address [facility] Co de Phone Number [facility] [place] [address] * Potassium (07/19/2017 11:30 PM EDT) Potassium 3.9 3.5 - 5.0 mmol/L [facility] Comment: Please note: ??Patients with [...] MD CHEMISTRY ORDERABL ES Performing Organization Address City/[facility]/ZIP Co de Phone Number [facility] [place] [address] * POCT Glucose (07/19/2017 7:45 PM EDT) Glucose, POC 100 65 - 199 mg/dL [facility] Comment: Supplemental ranges: <140 mg/dL before meals <180 mg/dL all other times of the day Blood specimen (specimen) 07/19/2017 7:45 PM EDT 07/19/2017 7:45 PM EDT Sriram Contreras MD POINT OF CARE TEST ORDERABLES Performing Organization Address [facility] Co de Phone Number [facility] [place] [address] * Blood culture (07/19/2017 7:00 PM EDT) Blood Culture No growth at 5 days. [facility] Blood specimen (specimen) STRUCTURE OF LEFT WRIST REGION / Unknown 07/19/2017 7:00 PM EDT 07/19/2017 7:50 PM EDT Narrative Resulting Agency Comment Spec In Lab Sriram Contreras MD MICROBIOLOGY - BLO OD ORDERABLES Performing Organization Address [facility] [place] [address] * Blood culture (07/19/2017 6:50 PM EDT) Blood Culture No growth at 5 days. [facility] Blood specimen (specimen) STRUCTURE OF RIGHT WRIST REGION / Unknown 07/19/2017 6:50 PM EDT 07/19/2017 7:51 PM EDT Narrative Resulting Agency Comment Spec In Lab Sriram Contreras MD MICROBIOLOGY - BLO OD ORDERABLES Performing Organization Address [facility] [place] [address] * XR Chest PA or AP 1 [...] EDT) pH, Arterial 7.49(H) 7.35 - 7.45 [facility] PCO2, Arterial 32(L) 35 - 45 mmHg [facility] PO2, Arterial 66(L) 85 - 104 mmHg [facility] Bicarbonate, Arterial 23.2 20.0 - 26.0 mmol/L [facility] Base Excess, Arterial -0.2 -3.0 - 3.0 mmol/L [facility] Hgb Blood Gas 15.5 13.7 - 16.5 gm/dL [facility] Oxyhemoglobin, Arterial 93.1(L) 94.0 - 97.0 % [facility] Carboxyhemoglob in, Arterial 0.4 % [facility] Comment: Nonsmokers: 0.5-1.5% COHB Smokers: Variable, but usually less than 10% Toxic: 20-30% COHB Lethal: Greater than 60% COHB Methemoglobin, Arterial 0.6 <=1.5 % [facility] Na Whole Blood 158(H) 135 - 145 mmol/L [facility] K Whole Blood 4.0 3.5 - 5.0 mmol/L [facility] Comment: Please note: Patients with WBC >100,000 may have falsely elevated Potassium levels. Contact the Clinical Chemistry Laboratory if there are any questions. ICa Whole Blood 1.14(L) 1.15 - 1.33 mmol/L [facility] Comment: Note: ??Total bilirubin higher than 20 mg/dL may lead to falsely low ionized calcium. CL Whole Blood 120(H) 98 - 107 mmol/L [facility] Gluc Whole Bld 116 65 - 199 mg/dL [facility] [facility] Comment:Diabetes: >=200 mg/d L plus symptoms. Lactate WB 1.6 0.5 - 2.2 mmol/L [facility] FIO2 Art 100 % [facility] PF Ratio Art 66 [facility] Blood specimen (specimen) 07/19/2017 5:12 PM EDT 07/19/2017 5:12 PM EDT Sriram Contreras MD POINT OF CARE TEST ORDERABLES Performing Organization Address [facility] Co de Phone Number [facility] [place] [address] * EKG 12 Lead (07/19/2017 4:55 PM EDT) Ventricular rate 85 BPM MUSE SYSTEM Atrial Rate 326 BPM MUSE SYSTEM QRS Duration 92 ms MUSE SYSTEM Q-T Interval 388 ms MUSE SYSTEM QTC Calculated (Bezet) 461 ms MUSE SYSTEM Calculated R [place] 65 degrees MUSE SYSTEM Calculated T [place] 4 degrees MUSE SYSTEM INTERPRETATION Atrial fibrillation [...] Contreras MD ECG ORDERABLES Performing Organization Address City/[facility]/ZIP Co de Phone Number MUSE SYSTEM * Phosphorus (07/19/2017 4:50 PM EDT) Phosphorus 3.0 2.5 - 4.5 mg/dL [facility] Blood specimen (specimen) 07/19/2017 4:50 PM EDT 07/19/2017 5:05 PM EDT Narrative Resulting Agency Comment Spec In Lab Sriram Contreras MD CHEMISTRY ORDERABL ES [facility] [place] [address] * (ABNORMAL) Basic Metabolic Panel (non-fasting) (07/19/2017 4:50 PM EDT) Glucose 118 65 - 199 mg/dL [facility] Comment:Diabetes: >=200 mg/d L plus symptoms Blood Urea Nitrogen 19 10 - 20 mg/dL [facility] Creatinine 0.79(L) 0.80 - 1.50 mg/dL [facility] Comment: Please note that the pediatric reference intervals supplied above were not validated at [facility]. Results from pediatric patients should be interpreted in conjunction to the patient's age, height and muscle mass. Sodium 144 135 - 145 mmol/L [facility] Potassium 3.5 3.5 - 5.0 mmol/L [facility] Comment: Please note: ??Patients with WBC >100,000 may have falsely elevated Potassium levels. ??For accurate Potassium quantification in these patients send serum separator tube (gold top) for subsequent determinations. ??Contact the Clinical Chemistry Laboratory if there are any questions. Chloride 106 98 - 107 mmol/L [facility] Carbon Dioxide 23 22 - 31 mmol/L [facility] Anion Gap 15 5 - 15 mmol/L [facility] Calcium 8.7 8.5 - 10.5 mg/dL [facility] Est Glomerular Filtration Rate >60 >=60 [facility] Comment: This estimated GFR (eGFR) [...] the following links into your internet browser. [email or web address] Blood specimen (specimen) 07/19/2017 4:50 PM EDT 07/19/2017 5:05 PM EDT Narrative Resulting Agency Comment Spec In Lab Sriram Contreras MD CHEMISTRY ORDERABL ES Performing Organization Address [facility] de Phone Number [facility] [place] [address] * Magnesium (07/19/2017 4:50 PM EDT) Magnesium 0.86 0.69 - 1.07 mmol/L [facility] Blood specimen (specimen) 07/19/2017 4:50 PM EDT 07/19/2017 5:05 PM EDT Narrative Resulting Agency Comment Spec In Lab Sriram Contreras MD CHEMISTRY ORDERABL ES Performing Organization Address [facility] Phone Number [facility] [place] [address] * POCT Glucose (07/19/2017 3:37 PM EDT) Glucose, POC 101 65 - 199 mg/dL [facility] Comment: Supplemental ranges: <140 mg/dL before meals <180 mg/dL all other times of the day Blood specimen (specimen) 07/19/2017 3:37 PM EDT 07/19/2017 3:37 PM EDT Sriram Contreras MD POINT OF CARE TEST ORDERABLES Performing Organization Address [facility] Co de Phone Number [facility] [place] [address] * XR Chest PA or AP 1 [...] Glucose, POC 100 65 - 199 mg/dL [facility] Comment: Supplemental ranges: <140 mg/dL before meals <180 mg/dL all other times of the day Blood specimen (specimen) 07/19/2017 12:36 PM EDT 07/19/2017 12:36 PM EDT Sriram Contreras MD POINT OF CARE TEST ORDERABLES [facility] [place] [address] * Potassium (07/19/2017 12:30 PM EDT) Potassium 3.7 3.5 - 5.0 mmol/L [facility] Comment: Please note: ??Patients with [...] Lab Sriram Contreras MD CHEMISTRY ORDERABL ES [facility] [place] [address] * (ABNORMAL) BLOOD GAS 2 ARTERIAL (07/19/2017 12:17 PM EDT) pH, Arterial 7.50(H) 7.35 - 7.45 [facility] PCO2, Arterial 32(L) 35 - 45 mmHg [facility] PO2, Arterial 60(L) 85 - 104 mmHg [facility] Bicarbonate, Arterial 23.7 20.0 - 26.0 mmol/L [facility] Base Excess, Arterial 0.5 -3.0 - 3.0 mmol/L [facility] Hgb Blood Gas 14.8 13.7 - 16.5 gm/dL [facility] Oxyhemoglobin, Arterial 91.1(L) 94.0 - 97.0 % [facility] Carboxyhemoglob in, Arterial 0.1 % [facility] Comment: Nonsmokers: 0.5-1.5% COHB Smokers: Variable, but usually less than 10% Toxic: 20-30% COHB Lethal: Greater than 60% COHB Methemoglobin, Arterial 0.6 <=1.5 % [facility] Na Whole Blood 145 135 - 145 mmol/L [facility] K Whole Blood 3.7 3.5 - 5.0 mmol/L [facility] Comment: Please note: Patients with WBC >100,000 may have falsely elevated Potassium levels. Contact the Clinical Chemistry Laboratory if there are any questions. ICa Whole Blood 1.16 1.15 - 1.33 mmol/L [facility] Comment: Note: ??Total bilirubin higher than 20 mg/dL may lead to falsely low ionized calcium. CL Whole Blood 109(H) 98 - 107 mmol/L [facility] Gluc Whole Bld 115 65 - 199 mg/dL [facility] Comment:Diabetes: >=200 mg/d L plus symptoms. Lactate WB 1.3 0.5 - 2.2 mmol/L [facility] FIO2 Art 45 % [facility] PF Ratio Art 133 [facility] Blood specimen (specimen) 07/19/2017 12:17 PM EDT 07/19/2017 12:17 PM EDT Sriram Contreras MD POINT OF CARE TEST ORDERABLES Performing Organization Address [facility] Co de Phone Number [facility] [place] [address] * Potassium (07/19/2017 8:50 AM EDT) Potassium 3.8 3.5 - 5.0 mmol/L [facility] Comment: Please note: ??Patients with [...] MD CHEMISTRY ORDERABL ES Performing Organization Address [facility] Co de Phone Number [facility] [place] [address] * Folate, serum (07/19/2017 8:50 AM EDT) Folate 16.6 4.8 - 24.2 ng/mL [facility] Blood specimen (specimen) 07/19/2017 8:50 AM EDT 07/19/2017 9:11 AM EDT Narrative Resulting Agency Comment Spec In Lab Sriram Contreras MD CHEMISTRY ORDERABL ES Performing Organization Address City/[facility]/ZIP Co de Phone Number [facility] [place] [address] * Vitamin B12 (07/19/2017 8:50 AM EDT) Vitamin B12 468 207 - 974 pg/mL [facility] Blood specimen (specimen) 07/19/2017 8:50 AM EDT 07/19/2017 9:11 AM EDT Narrative Resulting Agency Comment Spec In Lab Sriram Contreras MD CHEMISTRY ORDERABL ES Performing Organization Address [facility] Co de Phone Number [facility] [place] [address] * (ABNORMAL) TSH (07/19/2017 8:50 AM EDT) Thyroid Stimulating Hormone 6.80(H) 0.27 - 4.20 mlU/ML [facility] Blood specimen (specimen) 07/19/2017 8:50 AM EDT 07/19/2017 9:11 AM EDT Narrative Resulting Agency Comment Spec In Lab Sriram Contreras MD CHEMISTRY ORDERABL ES Performing Organization Address City/[facility] Co de Phone Number [facility] [place] [address] * Urine Hold (07/19/2017 8:07 AM EDT) Hold, Urine Sample in lab. [facility] Urine specimen (specimen) Urine / Unknown 07/19/2017 8:07 AM EDT 07/19/2017 8:35 AM EDT Sriram Contreras MD URINE ORDERABLES [facility] [place] [address] * (ABNORMAL) Urinalysis with reflex Culture (07/19/2017 8:07 AM EDT) Glucose, Urine Dipstick Negative Negative mg/dL [facility] Protein, Urine Dipstick 30(A) Negative mg/dL [facility] Bilirubin, Urine Dipstick Negative Negative mg/dL [facility] Comment: Clinical correlation required for positive Urine Bilirubin results as false positive may occur with some drugs and drug related products. If a false positive is suspected a serum total bilirubin should be considered if clinically indicated. Urobilinogen, Urine Dipstick >=4.0(A) Normal mg/dL [facility] pH, Urn (dipstick) 7.0 5.0 - 8.0 [facility] Blood, Urine Dipstick Moderate(A) Negative mg/dL [facility] Ketone, Urine Dipstick Negative Negative mg/dL [facility] Nitrite, Urine Dipstick Negative Negative [facility] Leukocytes, Urine Dipstick Trace(A) Negative [facility] Appearance, Urine Dipstick Clear Clear [facility] Specific [place] Urine Automated 1.025 1.002 - 1.030 [facility] Color, Urine Dipstick Yellow Yellow [facility] RBC, Urine 161(H) 0 - 3 /HPF [facility] WBC, Urine 1 0 - 3 /HPF [facility] Reflex to Culture No [facility] Urine specimen obtained via indwelling urinary catheter (specimen) 07/19/2017 8:07 AM EDT 07/19/2017 8:34 AM EDT Narrative Resulting Agency Comment Spec In Lab Sriram Contreras MD URINE ORDERABLES Performing Organization Address City/[facility] Co de Phone Number [facility] [place] [address] * POCT Glucose (07/19/2017 7:42 AM EDT) Glucose, POC 99 65 - 199 mg/dL [facility] Comment: Supplemental ranges: <140 mg/dL before meals <180 mg/dL all other times of the day Blood specimen (specimen) 07/19/2017 7:42 AM EDT 07/19/2017 7:42 AM EDT rSiram Contreras MD POINT OF CARE TEST ORDERABLES Performing Organization Address [facility] Co de Phone Number [facility] [place] [address] * POCT Glucose (07/19/2017 4:11 AM EDT) Glucose, POC 93 65 - 199 mg/dL [facility] Comment: Supplemental ranges: <140 mg/dL before meals <180 mg/dL all other times of the day Blood specimen (specimen) 07/19/2017 4:11 AM EDT 07/19/2017 4:11 AM EDT Sriram Contreras MD POINT OF CARE TEST ORDERABLES Performing Organization Address City/[facility] Co de Phone Number [facility] [place] [address] * (ABNORMAL) Differential, Automated (07/19/2017 2:30 AM EDT) Neutrophil % 77.9 % [facility] Neutrophil Absolute 9.99(H) 1.70 - 6.10 x10(3)/mc L [facility] Lymph % 9.8 % [facility] Lymphocytes Abs 1.2 0.9 - 3.2 x10(3)/mc L [facility] Monocyte % 11.5 % [facility] Monocyte Abs 1.5(H) 0.3 - 0.9 x10(3)/[facility] Eos % 0.1 % [facility] Eosinophils Abs 0.0 0.0 - 0.4 x10(3)/[facility] Basophil % 0.2 % [facility] Baso Absolute 0.0 0.0 - 0.1 x10(3)/[facility] Immature Gran % 0.50 % [facility] Comment: Immature granulocytes(IG's)percentage and absolute count will include metamyelocytes, myelocytes, and promyelocytes. Blood smears from CBCs yielding IG's will be scanned manually for concordance. If this scan disagrees with the automated IG or if promyelocytes are noted, a manual differential will be performed. Immature Gran Absolute 0.07(H) 0.00 - 0.04 x10(3)/[facility] Blood specimen (specimen) 07/19/2017 2:30 AM EDT 07/19/2017 2:34 AM EDT Narrative Resulting Agency Comment Spec In Lab Sriram Contreras MD HEMATOLOGY ORDERAB LES [facility] [place] [address] * (ABNORMAL) Hemogram (07/19/2017 2:30 AM EDT) White Blood Cell 12.8(H) 4.0 - 9.5 x10(3)/[facility] Red Blood Cell 4.30(L) 4.58 - 5.54 x10(6)/[facility] Hemoglobin 13.5(L) 13.7 - 16.5 gm/dL [facility] Hematocrit 38.6(L) 40.5 - 48.5 % [facility] Mean Cell Volume 89.8 82.9 - 93.1 fL [facility] Mean Cell Hemoglobin 31.4 27.5 - 32.1 pg [facility] Mean Cell Hemoglobin Concentration 35.0 32.0 - 35.7 gm/dL [facility] Platelet 176 145 - 357 x10(3)/mc L [facility] RDW Standard Deviation 45.1(H) 36.0 - 45.0 fL [facility] RDW coefficient of variation 13.9(H) 11.4 - 13.8 % [facility] Mean Platelet Volume 9.8 7.6 - 12.9 fL [facility] NRBC% auto 0.0 % [facility] NRBC Absolute 0.000 0.000 - 0.000 x10(3)/mc L [facility] Blood specimen (specimen) 07/19/2017 2:30 AM EDT 07/19/2017 2:34 AM EDT Narrative Resulting Agency Comment Spec In Lab Sriram Contreras MD HEMATOLOGY ORDERAB LES [facility] [place] [id number] * (ABNORMAL) Basic Metabolic Panel (non-fasting) (07/19/2017 2:30 AM EDT) Glucose 102 65 - 199 mg/dL [facility] Comment:Diabetes: >=200 mg/d L plus symptoms Blood Urea Nitrogen 23(H) 10 - 20 mg/dL [facility] Creatinine 0.87 0.80 - 1.50 mg/dL [facility] Comment: Please note that the pediatric reference intervals supplied above were not validated at [facility]. Results from pediatric patients should be interpreted in conjunction to the patient's age, height and muscle mass. Sodium 144 135 - 145 mmol/L [facility] Potassium 3.4(L) 3.5 - 5.0 mmol/L [facility] Comment: Please note: ??Patients with WBC >100,000 may have falsely elevated Potassium levels. ??For accurate Potassium quantification in these patients send serum separator tube (gold top) for subsequent determinations. ??Contact the Clinical Chemistry Laboratory if there are any questions. Chloride 106 98 - 107 mmol/L [facility] Carbon Dioxide 23 22 - 31 mmol/L [facility] Anion Gap 15 5 - 15 mmol/L [facility] Calcium 8.5 8.5 - 10.5 mg/dL [facility] Est Glomerular Filtration Rate >60 >=60 [facility] Comment: This estimated GFR (eGFR) [...] the following links into your internet browser. [email or web address] Blood specimen (specimen) 07/19/2017 2:30 AM EDT 07/19/2017 2:34 AM EDT Narrative Resulting Agency Comment Spec In Lab Sriram Contreras MD CHEMISTRY ORDERABL ES Performing Organization Address [facility] Co de Phone Number [facility] [place] [address] * (ABNORMAL) Prealbumin (07/19/2017 2:30 AM EDT) Prealbumin 17(L) 20 - 40 mg/dL [facility] Comment: Prealbumin levels are generally lower in the pediatric population; adult concentrations are usually attained near puberty. Blood specimen (specimen) 07/19/2017 2:30 AM EDT 07/19/2017 2:34 AM EDT Narrative Resulting Agency Comment Spec In Lab Sriram Contreras MD CHEMISTRY ORDERABL ES Performing Organization Address City/[facility]/ZIP Co de Phone Number [facility] [place] [address] * (ABNORMAL) BLOOD GAS 2 ARTERIAL (07/18/2017 11:53 PM EDT) pH, Arterial 7.50(H) 7.35 - 7.45 [facility] PCO2, Arterial 32(L) 35 - 45 mmHg [facility] PO2, Arterial 61(L) 85 - 104 mmHg [facility] Bicarbonate, Arterial 24.5 20.0 - 26.0 mmol/L [facility] Base Excess, Arterial 1.3 -3.0 - 3.0 mmol/L [facility] Hgb Blood Gas 14.1 13.7 - 16.5 gm/dL [facility] Oxyhemoglobin, Arterial 90.9(L) 94.0 - 97.0 % [facility] Carboxyhemoglob in, Arterial 0.3 % [facility] Comment: Nonsmokers: 0.5-1.5% COHB Smokers: Variable, but usually less than 10% Toxic: 20-30% COHB Lethal: Greater than 60% COHB Methemoglobin, Arterial 0.7 <=1.5 % [facility] Na Whole Blood 144 135 - 145 mmol/L [facility] K Whole Blood 3.3(L) 3.5 - 5.0 mmol/L [facility] Comment: Please note: Patients with WBC >100,000 may have falsely elevated Potassium levels. Contact the Clinical Chemistry Laboratory if there are any questions. ICa Whole Blood 1.17 1.15 - 1.33 mmol/L [facility] Comment: Note: ??Total bilirubin higher than 20 mg/dL may lead to falsely low ionized calcium. CL Whole Blood 109(H) 98 - 107 mmol/L [facility] Gluc Whole Bld 104 65 - 199 mg/dL [facility] Comment:Diabetes: >=200 mg/d L plus symptoms. Lactate WB 1.3 0.5 - 2.2 mmol/L [facility] FIO2 Art 45 % [facility] PF Ratio Art 136 [facility] Blood specimen (specimen) 07/18/2017 11:53 PM EDT 07/18/2017 11:53 PM EDT Sriram Contreras MD POINT OF CARE TEST ORDERABLES [facility] [place] [address] * POCT Glucose (07/18/2017 11:49 PM EDT) Glucose, POC 102 65 - 199 mg/dL [facility] Comment: Supplemental ranges: <140 mg/dL before meals <180 mg/dL all other times of the day Blood specimen (specimen) 07/18/2017 11:49 PM EDT 07/18/2017 11:49 PM EDT Sriram Contreras MD POINT OF CARE TEST ORDERABLES Performing Organization Address City/[facility]/ZIP Co de Phone Number [facility] [place] [address] * POCT Glucose (07/18/2017 8:44 PM EDT) Glucose, POC 108 65 - 199 mg/dL [facility] Comment: Supplemental ranges: <140 mg/dL before meals <180 mg/dL all other times of the day Blood specimen (specimen) 07/18/2017 8:44 PM EDT 07/18/2017 8:44 PM EDT Sriram Contreras MD POINT OF CARE TEST ORDERABLES Performing Organization Address City/[facility]/ZIP Co de Phone Number [facility] [place] [address] * (ABNORMAL) BLOOD GAS 2 ARTERIAL (07/18/2017 5:22 PM EDT) pH, Arterial 7.54(H) 7.35 - 7.45 [facility] PCO2, Arterial 31(L) 35 - 45 mmHg [facility] PO2, Arterial 55(L) 85 - 104 mmHg [facility] Bicarbonate, Arterial 25.9 20.0 - 26.0 mmol/L [facility] Base Excess, Arterial 3.3(H) -3.0 - 3.0 mmol/L [facility] Hgb Blood Gas 14.2 13.7 - 16.5 gm/dL [facility] Oxyhemoglobin, Arterial 90.3(L) 94.0 - 97.0 % [facility] Carboxyhemoglob in, Arterial 0.3 % [facility] Comment: Nonsmokers: 0.5-1.5% COHB Smokers: Variable, but usually less than 10% Toxic: 20-30% COHB Lethal: Greater than 60% COHB Methemoglobin, Arterial 0.5 <=1.5 % [facility] Na Whole Blood 144 135 - 145 mmol/L [facility] K Whole Blood 3.3(L) 3.5 - 5.0 mmol/L [facility] Comment: Please note: Patients with WBC >100,000 may have falsely elevated Potassium levels. Contact the Clinical Chemistry Laboratory if there are any questions. ICa Whole Blood 1.18 1.15 - 1.33 mmol/L [facility] Comment: Note: ??Total bilirubin higher than 20 mg/dL may lead to falsely low ionized calcium. CL Whole Blood 108(H) 98 - 107 mmol/L [facility] Gluc Whole Bld 130 65 - 199 mg/dL [facility] Comment:Diabetes: >=200 mg/d L plus symptoms. Lactate WB 1.6 0.5 - 2.2 mmol/L [facility] FIO2 Art 40 % [facility] PF Ratio Art 138 [facility] Blood specimen (specimen) 07/18/2017 5:22 PM EDT 07/18/2017 5:22 PM EDT Sriram Contreras MD POINT OF CARE TEST ORDERABLES [facility] [place] [address] * POCT Glucose (07/18/2017 3:42 PM EDT) Glucose, POC 119 65 - 199 mg/dL [facility] Comment: Supplemental ranges: <140 mg/dL before meals <180 mg/dL all other times of the day Blood specimen (specimen) 07/18/2017 3:42 PM EDT 07/18/2017 3:42 PM EDT Sriram Contreras MD POINT OF CARE TEST ORDERABLES [facility] [place] [address] * POCT Glucose (07/18/2017 1:05 PM EDT) Glucose, POC 118 65 - 199 mg/dL [facility] Comment: Supplemental ranges: <140 mg/dL before meals <180 mg/dL all other times of the day Blood specimen (specimen) 07/18/2017 1:05 PM EDT 07/18/2017 1:05 PM EDT Sriram Contreras MD POINT OF CARE TEST ORDERABLES Performing Organization Address City/[facility]/ZIP Co de Phone Number [facility] [place] [address] * (ABNORMAL) BLOOD GAS 2 ARTERIAL (07/18/2017 11:47 AM EDT) pH, Arterial 7.51(H) 7.35 - 7.45 [facility] PCO2, Arterial 33(L) 35 - 45 mmHg [facility] PO2, Arterial 94 85 - 104 mmHg [facility] Bicarbonate, Arterial 25.1 20.0 - 26.0 mmol/L [facility] Base Excess, Arterial 2.0 -3.0 - 3.0 mmol/L [facility] Hgb Blood Gas 14.4 13.7 - 16.5 gm/dL [facility] Oxyhemoglobin, Arterial 96.1 94.0 - 97.0 % [facility] Carboxyhemoglob in, Arterial 0.3 % [facility] Comment: Nonsmokers: 0.5-1.5% COHB Smokers: Variable, but usually less than 10% Toxic: 20-30% COHB Lethal: Greater than 60% COHB Methemoglobin, Arterial 0.6 <=1.5 % [facility] Na Whole Blood 141 135 - 145 mmol/L [facility] K Whole Blood 3.6 3.5 - 5.0 mmol/L [facility] Comment: Please note: Patients with WBC >100,000 may have falsely elevated Potassium levels. Contact the Clinical Chemistry Laboratory if there are any questions. ICa Whole Blood 1.17 1.15 - 1.33 mmol/L [facility] Comment: Note: ??Total bilirubin higher than 20 mg/dL may lead to falsely low ionized calcium. CL Whole Blood 104 98 - 107 mmol/L [facility] Gluc Whole Bld 228(H) 65 - 199 mg/dL [facility] Comment:Diabetes: >=200 mg/d L plus symptoms. Lactate WB 1.7 0.5 - 2.2 mmol/L [facility] FIO2 Art 50 % [facility] PF Ratio Art 188 [facility] Blood specimen (specimen) 07/18/2017 11:47 AM EDT 07/18/2017 11:47 AM EDT Sriram Contreras MD POINT OF CARE TEST ORDERABLES [facility] [place] [address] * (ABNORMAL) BLOOD GAS 2 ARTERIAL (07/18/2017 7:56 AM EDT) pH, Arterial 7.50(H) 7.35 - 7.45 [facility] PCO2, Arterial 31(L) 35 - 45 mmHg [facility] PO2, Arterial 82(L) 85 - 104 mmHg [facility] Bicarbonate, Arterial 24.2 20.0 - 26.0 mmol/L [facility] Base Excess, Arterial 1.0 -3.0 - 3.0 mmol/L [facility] Hgb Blood Gas 13.4(L) 13.7 - 16.5 gm/dL [facility] Oxyhemoglobin, Arterial 95.3 94.0 - 97.0 % [facility] Carboxyhemoglob in, Arterial 0.3 % [facility] Comment: Nonsmokers: 0.5-1.5% COHB Smokers: Variable, but usually less than 10% Toxic: 20-30% COHB Lethal: Greater than 60% COHB Methemoglobin, Arterial 0.5 <=1.5 % [facility] Na Whole Blood 143 135 - 145 mmol/L [facility] K Whole Blood 3.7 3.5 - 5.0 mmol/L [facility] Comment: Please note: Patients with WBC >100,000 may have falsely elevated Potassium levels. Contact the Clinical Chemistry Laboratory if there are any questions. ICa Whole Blood 1.17 1.15 - 1.33 mmol/L [facility] Comment: Note: ??Total bilirubin higher than 20 mg/dL may lead to falsely low ionized calcium. CL Whole Blood 106 98 - 107 mmol/L [facility] Gluc Whole Bld 158 65 - 199 mg/dL [facility] Comment:Diabetes: >=200 mg/d L plus symptoms. Lactate WB 2.5(H) 0.5 - 2.2 mmol/L [facility] FIO2 Art 60 % [facility] PF Ratio Art 137 [facility] Blood specimen (specimen) 07/18/2017 7:56 AM EDT 07/18/2017 7:56 AM EDT Sriram Contreras MD POINT OF CARE TEST ORDERABLES [facility] [place] [address] * (ABNORMAL) BLOOD GAS 2 ARTERIAL (07/18/2017 3:55 AM EDT) pH, Arterial 7.51(H) 7.35 - 7.45 [facility] PCO2, Arterial 34(L) 35 - 45 mmHg [facility] PO2, Arterial 95 85 - 104 mmHg [facility] Bicarbonate, Arterial 26.4(H) 20.0 - 26.0 mmol/L [facility] Base Excess, Arterial 3.4(H) -3.0 - 3.0 mmol/L [facility] Hgb Blood Gas 14.2 13.7 - 16.5 gm/dL [facility] Oxyhemoglobin, Arterial 96.4 94.0 - 97.0 % [facility] Carboxyhemoglob in, Arterial 0.5 % [facility] Comment: Nonsmokers: 0.5-1.5% COHB Smokers: Variable, but usually less than 10% Toxic: 20-30% COHB Lethal: Greater than 60% COHB Methemoglobin, Arterial 0.6 <=1.5 % [facility] Na Whole Blood 142 135 - 145 mmol/L [facility] K Whole Blood 3.6 3.5 - 5.0 mmol/L [facility] Comment: Please note: Patients with WBC >100,000 may have falsely elevated Potassium levels. Contact the Clinical Chemistry Laboratory if there are any questions. ICa Whole Blood 1.17 1.15 - 1.33 mmol/L [facility] Comment: Note: ??Total bilirubin higher than 20 mg/dL may lead to falsely low ionized calcium. CL Whole Blood 105 98 - 107 mmol/L [facility] Gluc Whole Bld 178 65 - 199 mg/dL [facility] Comment:Diabetes: >=200 mg/d L plus symptoms. Lactate WB 3.0(H) 0.5 - 2.2 mmol/L [facility] FIO2 Art 70 % [facility] PF Ratio Art 136 [facility] Blood specimen (specimen) 07/18/2017 3:55 AM EDT 07/18/2017 3:55 AM EDT Sriram Contreras MD POINT OF CARE TEST ORDERABLES Performing Organization Address [facility] Co de Phone Number [facility] [place] [address] * (ABNORMAL) POCT Glucose (07/18/2017 3:42 AM EDT) [facility] Glucose, POC 205(H) 65 - 199 mg/dL [facility] Comment: Supplemental ranges: <140 mg/dL before meals <180 mg/dL all other times of the day Blood specimen (specimen) 07/18/2017 3:42 AM EDT 07/18/2017 3:42 AM EDT Sriram Contreras MD POINT OF CARE TEST ORDERABLES Performing Organization Address [facility] Co de Phone Number [facility] [place] [address] * (ABNORMAL) Magnesium (07/18/2017 2:20 AM EDT) [facility] Magnesium 1.09(H) 0.69 - 1.07 mmol/L [facility] Blood specimen (specimen) Venous Draw / Unknown 07/18/2017 2:20 AM EDT 07/18/2017 2:31 AM EDT Narrative Resulting Agency Comment Spec In Lab Sriram Contreras MD CHEMISTRY ORDERABL ES Performing Organization Address [facility] [place] [address] * (ABNORMAL) Differential, Automated (07/18/2017 2:20 AM EDT) [facility] Neutrophil % 86.8 % [facility] Neutrophil Absolute 9.28(H) 1.70 - 6.10 x10(3)/mc L [facility] Lymph % 5.8 % [facility] Lymphocytes Abs 0.6(L) 0.9 - 3.2 x10(3)/ L [facility] Monocyte % 6.5 % [facility] Monocyte Abs 0.7 0.3 - 0.9 x10(3)/[facility] Eos % 0.0 % [facility] Eosinophils Abs 0.0 0.0 - 0.4 x10(3)/[facility] Basophil % 0.2 % [facility] Baso Absolute 0.0 0.0 - 0.1 x10(3)/[facility] Immature Gran % 0.70 % [facility] Comment: Immature granulocytes(IG's)percentage and absolute count will include metamyelocytes, myelocytes, and promyelocytes. Blood smears from CBCs yielding IG's will be scanned manually for concordance. If this scan disagrees with the automated IG or if promyelocytes are noted, a manual differential will be performed. Immature Gran Absolute 0.08(H) 0.00 - 0.04 x10(3)/[facility] Blood specimen (specimen) 07/18/2017 2:20 AM EDT 07/18/2017 2:28 AM EDT Narrative Resulting Agency Comment Spec In Lab Sriram Contreras MD HEMATOLOGY ORDERAB LES [facility] [place] [address] * (ABNORMAL) Hemogram (07/18/2017 2:20 AM EDT) White Blood Cell 10.7(H) 4.0 - 9.5 x10(3)/[facility] Red Blood Cell 4.39(L) 4.58 - 5.54 x10(6)/[facility] Hemoglobin 13.6(L) 13.7 - 16.5 gm/dL [facility] Hematocrit 38.8(L) 40.5 - 48.5 % [facility] Mean Cell Volume 88.4 82.9 - 93.1 fL [facility] Mean Cell Hemoglobin 31.0 27.5 - 32.1 pg [facility] Mean Cell Hemoglobin Concentration 35.1 32.0 - 35.7 gm/dL [facility] Platelet 147 145 - 357 x10(3)/mc L [facility] RDW Standard Deviation 43.4 36.0 - 45.0 fL [facility] RDW coefficient of variation 13.3 11.4 - 13.8 % [facility] Mean Platelet Volume 10.9 7.6 - 12.9 [facility] NRBC% auto 0.0 % [facility] NRBC Absolute 0.000 0.000 - 0.000 x10(3)/mc L [facility] Blood specimen (specimen) 07/18/2017 2:20 AM EDT 07/18/2017 2:28 AM EDT Narrative Resulting Agency Comment Spec In Lab Sriram Contreras MD HEMATOLOGY ORDERAB LES [facility] [place] [address] * (ABNORMAL) Basic Metabolic Panel (non-fasting) (07/18/2017 2:20 AM EDT) Glucose 181 65 - 199 mg/dL [facility] Comment:Diabetes: >=200 mg/d L plus symptoms Blood Urea Nitrogen 22(H) 10 - 20 mg/dL [facility] Creatinine 0.74(L) 0.80 - 1.50 mg/dL [facility] Comment: Please note that the pediatric reference intervals supplied above were not validated at [facility]. Results from pediatric patients should be interpreted in conjunction to the patient's age, height and muscle mass. Sodium 145 135 - 145 mmol/L [facility] Potassium 3.7 3.5 - 5.0 mmol/L [facility] Comment: Please note: ??Patients with WBC >100,000 may have falsely elevated Potassium levels. ??For accurate Potassium quantification in these patients send serum separator tube (gold top) for subsequent determinations. ??Contact the Clinical Chemistry Laboratory if there are any questions. Chloride 105 98 - 107 mmol/L [facility] Carbon Dioxide 25 22 - 31 mmol/L [facility] Anion Gap 15 5 - 15 mmol/L [facility] Calcium 8.8 8.5 - 10.5 mg/dL [facility] Est Glomerular Filtration Rate >60 >=60 [facility] Comment: This estimated GFR (eGFR) [...] the following links into your internet browser. [email or web address] Blood specimen (specimen) 07/18/2017 2:20 AM EDT 07/18/2017 2:28 AM EDT Narrative Resulting Agency Comment Spec In Lab Sriram Contreras MD CHEMISTRY ORDERABL ES [facility] [place] [address] * (ABNORMAL) BLOOD GAS 2 ARTERIAL (07/17/2017 11:36 PM EDT) pH, Arterial 7.51(H) 7.35 - 7.45 [facility] PCO2, Arterial 32(L) 35 - 45 mmHg [facility] PO2, Arterial 60(L) 85 - 104 mmHg [facility] Bicarbonate, Arterial 25.0 20.0 - 26.0 mmol/L [facility] Base Excess, Arterial 2.0 -3.0 - 3.0 mmol/L [facility] Hgb Blood Gas 14.8 13.7 - 16.5 gm/dL [facility] Oxyhemoglobin, Arterial 92.1(L) 94.0 - 97.0 % [facility] Carboxyhemoglob in, Arterial 0.3 % [facility] Comment: Nonsmokers: 0.5-1.5% COHB Smokers: Variable, but usually less than 10% Toxic: 20-30% COHB Lethal: Greater than 60% COHB Methemoglobin, Arterial 0.5 <=1.5 % [facility] Na Whole Blood 143 135 - 145 mmol/L [facility] K Whole Blood 3.7 3.5 - 5.0 mmol/L [facility] Comment: Please note: Patients with WBC >100,000 may have falsely elevated Potassium levels. Contact the Clinical Chemistry Laboratory if there are any questions. ICa Whole Blood 1.16 1.15 - 1.33 mmol/L [facility] Comment: Note: ??Total bilirubin higher than 20 mg/dL may lead to falsely low ionized calcium. CL Whole Blood 104 98 - 107 mmol/L [facility] Gluc Whole Bld 202(H) 65 - 199 mg/dL [facility] Comment:Diabetes: >=200 mg/d L plus symptoms. Lactate WB 2.9(H) 0.5 - 2.2 mmol/L [facility] FIO2 Art 60 % [facility] PF Ratio Art 100 [facility] Blood specimen (specimen) 07/17/2017 11:36 PM EDT 07/17/2017 11:36 PM EDT Sriram Contreras MD POINT OF CARE TEST ORDERABLES [facility] [place] [address] * (ABNORMAL) POCT Glucose (07/17/2017 11:34 PM EDT) Pathologist [facility] Glucose, POC 202(H) 65 - 199 mg/dL [facility] Comment: Supplemental ranges: <140 mg/dL before meals <180 mg/dL all other times of the day Blood specimen (specimen) 07/17/2017 11:34 PM EDT 07/17/2017 11:34 PM EDT Sriram Contreras MD POINT OF CARE TEST ORDERABLES Performing Organization Address [facility]/ZIP Co de Phone Number [facility] [place] [address] * Magnesium (07/17/2017 10:10 PM EDT) [facility] Magnesium 0.87 0.69 - 1.07 mmol/L [facility] Blood specimen (specimen) 07/17/2017 10:10 PM EDT 07/17/2017 10:18 PM EDT Narrative Resulting Agency Comment Spec In Lab Sriram Contreras MD CHEMISTRY ORDERABL ES Performing Organization Address [facility] Co de Phone Number [facility] [place] [address] * (ABNORMAL) BLOOD GAS 2 ARTERIAL (07/17/2017 7:51 PM EDT) Pathologist [facility] pH, Arterial 7.49(H) 7.35 - 7.45 [facility] PCO2, Arterial 36 35 - 45 mmHg [facility] PO2, Arterial 67(L) 85 - 104 mmHg [facility] Bicarbonate, Arterial 26.8(H) 20.0 - 26.0 mmol/L [facility] Base Excess, Arterial 3.4(H) -3.0 - 3.0 mmol/L [facility] Hgb Blood Gas 14.3 13.7 - 16.5 gm/dL [facility] Oxyhemoglobin, Arterial 93.4(L) 94.0 - 97.0 % [facility] Carboxyhemoglob in, Arterial 0.3 % [facility] Comment: Nonsmokers: 0.5-1.5% COHB Smokers: Variable, but usually less than 10% Toxic: 20-30% COHB Lethal: Greater than 60% COHB Methemoglobin, Arterial 0.6 <=1.5 % [facility] Na Whole Blood 143 135 - 145 mmol/L [facility] K Whole Blood 3.7 3.5 - 5.0 mmol/L [facility] Comment: Please note: Patients with WBC >100,000 may have falsely elevated Potassium levels. Contact the Clinical Chemistry Laboratory if there are any questions. ICa Whole Blood 1.17 1.15 - 1.33 mmol/L [facility] Comment: Note: ??Total bilirubin higher than 20 mg/dL may lead to falsely low ionized calcium. CL Whole Blood 106 98 - 107 mmol/L [facility] Gluc Whole Bld 178 65 - 199 mg/dL [facility] Comment:Diabetes: >=200 mg/d L plus symptoms. Lactate WB 2.8(H) 0.5 - 2.2 mmol/L [facility] FIO2 Art 60 % [facility] PF Ratio Art 112 [facility] Blood specimen (specimen) 07/17/2017 7:51 PM EDT 07/17/2017 7:51 PM EDT Sriram Contreras MD POINT OF CARE TEST ORDERABLES [facility] [place] [address] * POCT Glucose (07/17/2017 7:50 PM EDT) Glucose, POC 153 65 - 199 mg/dL [facility] Comment: Supplemental ranges: <140 mg/dL before meals <180 mg/dL all other times of the day Blood specimen (specimen) 07/17/2017 7:50 PM EDT 07/17/2017 7:50 PM EDT Sriram Contreras MD POINT OF CARE TEST ORDERABLES [facility] [place] [address] * (ABNORMAL) BLOOD GAS 2 ARTERIAL (07/17/2017 3:20 PM EDT) pH, Arterial 7.51(H) 7.35 - 7.45 [facility] PCO2, Arterial 31(L) 35 - 45 mmHg [facility] PO2, Arterial 67(L) 85 - 104 mmHg [facility] Bicarbonate, Arterial 24.3 20.0 - 26.0 mmol/L [facility] Base Excess, Arterial 1.3 -3.0 - 3.0 mmol/L [facility] Hgb Blood Gas 14.1 13.7 - 16.5 gm/dL [facility] Oxyhemoglobin, Arterial 93.8(L) 94.0 - 97.0 % [facility] Carboxyhemoglob in, Arterial 0.3 % [facility] Comment: Nonsmokers: 0.5-1.5% COHB Smokers: Variable, but usually less than 10% Toxic: 20-30% COHB Lethal: Greater than 60% COHB Methemoglobin, Arterial 0.5 <=1.5 % [facility] Na Whole Blood 141 135 - 145 mmol/L [facility] K Whole Blood 3.7 3.5 - 5.0 mmol/L [facility] Comment: Please note: Patients with WBC >100,000 may have falsely elevated Potassium levels. Contact the Clinical Chemistry Laboratory if there are any questions. ICa Whole Blood 1.15(L) 1.15 - 1.33 mmol/L [facility] Comment: Note: ??Total bilirubin higher than 20 mg/dL may lead to falsely low ionized calcium. CL Whole Blood 105 98 - 107 mmol/L [facility] Gluc Whole Bld 204(H) 65 - 199 mg/dL [facility] Comment:Diabetes: >=200 mg/d L plus symptoms. Lactate WB 2.0 0.5 - 2.2 mmol/L [facility] FIO2 Art 50 % [facility] PF Ratio Art 134 [facility] Blood specimen (specimen) 07/17/2017 3:20 PM EDT 07/17/2017 3:20 PM EDT Sriram Contreras MD POINT OF CARE TEST ORDERABLES [facility] [place] [address] * (ABNORMAL) BLOOD GAS 2 ARTERIAL (07/17/2017 12:50 PM EDT) pH, Arterial 7.51(H) 7.35 - 7.45 [facility] PCO2, Arterial 30(L) 35 - 45 mmHg [facility] PO2, Arterial 52(L) 85 - 104 mmHg [facility] Bicarbonate, Arterial 23.7 20.0 - 26.0 mmol/L [facility] Base Excess, Arterial 0.8 -3.0 - 3.0 mmol/L [facility] Hgb Blood Gas 14.0 13.7 - 16.5 gm/dL [facility] Oxyhemoglobin, Arterial 89.4(L) 94.0 - 97.0 % [facility] Carboxyhemoglob in, Arterial 0.3 % [facility] Comment: Nonsmokers: 0.5-1.5% COHB Smokers: Variable, but usually less than 10% Toxic: 20-30% COHB Lethal: Greater than 60% COHB Methemoglobin, Arterial 0.5 <=1.5 % [facility] Na Whole Blood 140 135 - 145 mmol/L [facility] K Whole Blood 3.9 3.5 - 5.0 mmol/L [facility] Comment: Please note: Patients with WBC >100,000 may have falsely elevated Potassium levels. Contact the Clinical Chemistry Laboratory if there are any questions. ICa Whole Blood 1.18 1.15 - 1.33 mmol/L [facility] Comment: Note: ??Total bilirubin higher than 20 mg/dL may lead to falsely low ionized calcium. CL Whole Blood 106 98 - 107 mmol/L [facility] Gluc Whole Bld 195 65 - 199 mg/dL [facility] Comment:Diabetes: >=200 mg/d L plus symptoms. Lactate WB 2.3(H) 0.5 - 2.2 mmol/L [facility] FIO2 Art 50 % [facility] PF Ratio Art 104 [facility] Blood specimen (specimen) 07/17/2017 12:50 PM EDT 07/17/2017 12:50 PM EDT Sriram Contreras MD POINT OF CARE TEST ORDERABLES Performing Organization Address City/State/[facility] Co de Phone Number [facility] [place] [address] * XR Chest PA or AP 1 [...] EDT) pH, Arterial 7.48(H) 7.35 - 7.45 [facility] PCO2, Arterial 34(L) 35 - 45 mmHg [facility] PO2, Arterial 55(L) 85 - 104 mmHg [facility] Bicarbonate, Arterial 24.7 20.0 - 26.0 mmol/L [facility] Base Excess, Arterial 1.2 -3.0 - 3.0 mmol/L [facility] Hgb Blood Gas 14.1 13.7 - 16.5 gm/dL [facility] Oxyhemoglobin, Arterial 90.4(L) 94.0 - 97.0 % [facility] Carboxyhemoglob in, Arterial 0.1 % [facility] Comment: Nonsmokers: 0.5-1.5% COHB Smokers: Variable, but usually less than 10% Toxic: 20-30% COHB Lethal: Greater than 60% COHB Methemoglobin, Arterial 0.7 <=1.5 % [facility] Na Whole Blood 141 135 - 145 mmol/L [facility] K Whole Blood 4.2 3.5 - 5.0 mmol/L [facility] Comment: Please note: Patients with WBC >100,000 may have falsely elevated Potassium levels. Contact the Clinical Chemistry Laboratory if there are any questions. ICa Whole Blood 1.18 1.15 - 1.33 mmol/L [facility] Comment: Note: ??Total bilirubin higher than 20 mg/dL may lead to falsely low ionized calcium. CL Whole Blood 106 98 - 107 mmol/L [facility] Gluc Whole Bld 194 65 - 199 mg/dL [facility] Comment:Diabetes: >=200 mg/d L plus symptoms. Lactate WB 2.6(H) 0.5 - 2.2 mmol/L [facility] FIO2 Art 40 % [facility] PF Ratio Art 138 [facility] Blood specimen (specimen) 07/17/2017 11:54 AM EDT 07/17/2017 11:54 AM EDT Sriram Contreras MD POINT OF CARE TEST ORDERABLES [facility] [place] [address] * Cardiac Enzymes (07/17/2017 5:42 AM EDT) Troponin-T <0.01 0.00 - 0.00 ng/mL [facility] Comment: The 99th percentile for [...] ischemia ?? New or presumed new significant [id number] wave (ST-T) changes or new left bundle [...] additional sample may be indicated. Reference: Third [place] Definition of Myocardial Infarction. Journal of the [place] [employer] 2012;60:1581-98 Creatine Kinase 47 0 - 200 unit/L [facility] Blood specimen (specimen) 07/17/2017 5:42 AM EDT 07/17/2017 5:42 AM EDT Narrative Resulting Agency Comment Spec In Lab Sriram Contreras MD CHEMISTRY ORDERABL ES Performing Organization Address City/State/[facility] Co de Phone Number [facility] [place] [address] * (ABNORMAL) Differential, Automated (07/17/2017 12:30 AM EDT) Neutrophil % 90.5 % [facility] Neutrophil Absolute 8.62(H) 1.70 - 6.10 x10(3)/mc L [facility] Lymph % 3.7 % [facility] Lymphocytes Abs 0.4(L) 0.9 - 3.2 x10(3)/mc L [facility] Monocyte % 4.9 % [facility] Monocyte Abs 0.5 0.3 - 0.9 x10(3)/mc L [facility] Eos % 0.0 % [facility] Eosinophils Abs 0.0 0.0 - 0.4 x10(3)/mc L [facility] Basophil % 0.1 % [facility] Baso Absolute 0.0 0.0 - 0.1 x10(3)/mc L [facility] Immature Gran % 0.80 % [facility] Comment: Immature granulocytes(IG's)percentage and absolute count will include metamyelocytes, myelocytes, and promyelocytes. Blood smears from CBCs yielding IG's will be scanned manually for concordance. If this scan disagrees with the automated IG or if promyelocytes are noted, a manual differential will be performed. Immature Gran Absolute 0.08(H) 0.00 - 0.04 x10(3)/mc L [facility] Blood specimen (specimen) 07/17/2017 12:30 AM EDT 07/17/2017 1:13 AM EDT Narrative Resulting Agency Comment Spec In Lab Sriram Contreras MD HEMATOLOGY ORDERAB LES [facility] [place] [address] * (ABNORMAL) Hemogram (07/17/2017 12:30 AM EDT) White Blood Cell 9.5 4.0 - 9.5 x10(3)/mc L [facility] Red Blood Cell 3.98(L) 4.58 - 5.54 x10(6)/mc L [facility] Hemoglobin 12.4(L) 13.7 - 16.5 gm/dL [facility] Hematocrit 36.7(L) 40.5 - 48.5 % [facility] Mean Cell Volume 92.2 82.9 - 93.1 fL [facility] Mean Cell Hemoglobin 31.2 27.5 - 32.1 pg [facility] Mean Cell Hemoglobin Concentration 33.8 32.0 - 35.7 gm/dL [facility] Platelet 133(L) 145 - 357 x10(3)/mc L [facility] RDW Standard Deviation 47.7(H) 36.0 - 45.0 fL [facility] RDW coefficient of variation 13.8 11.4 - 13.8 % [facility] Mean Platelet Volume 10.9 7.6 - 12.9 fL [facility] NRBC% auto 0.0 % [facility] NRBC Absolute 0.000 0.000 - 0.000 x10(3)/mc L [facility] Blood specimen (specimen) 07/17/2017 12:30 AM EDT 07/17/2017 1:13 AM EDT Narrative Resulting Agency Comment Spec In Lab Sriram Contreras MD HEMATOLOGY ORDERAB LES [facility] [place] [address] * (ABNORMAL) Basic Metabolic Panel (non-fasting) (07/17/2017 12:30 AM EDT) Glucose 246(H) 65 - 199 mg/dL [facility] Comment:Diabetes: >=200 mg/d L plus symptoms Blood Urea Nitrogen 17 10 - 20 mg/dL [facility] Creatinine 0.73(L) 0.80 - 1.50 mg/dL [facility] Comment: Please note that the pediatric reference intervals supplied above were not validated at [facility]. Results from pediatric patients should be interpreted in conjunction to the patient's age, height and muscle mass. Sodium 137 135 - 145 mmol/L [facility] Potassium 4.7 3.5 - 5.0 mmol/L [facility] [facility] Comment: Please note: ??Patients with WBC >100,000 may have falsely elevated Potassium levels. ??For accurate Potassium quantification in these patients send serum separator tube (gold top) for subsequent determinations. ??Contact the Clinical Chemistry Laboratory if there are any questions. Chloride 103 98 - 107 mmol/L [facility] Carbon Dioxide 21(L) 22 - 31 mmol/L [facility] Anion Gap 13 5 - 15 mmol/L [facility] Calcium 8.3(L) 8.5 - 10.5 mg/dL [facility] Est Glomerular Filtration Rate >60 >=60 [facility] Comment: This estimated GFR (eGFR) [...] the following links into your internet browser. [email or web address] Blood specimen (specimen) 07/17/2017 12:30 AM EDT 07/17/2017 1:13 AM EDT Narrative Resulting Agency Comment Spec In Lab Sriram Contreras MD CHEMISTRY ORDERABL ES [facility] [place] [address] * Cardiac Enzymes (07/17/2017 12:30 AM EDT) Troponin-T <0.01 0.00 - 0.00 ng/mL [facility] Comment: The 99th percentile for [...] ischemia ?? New or presumed new significant HE-boxzltm-P wave (ST-T) changes or new left bundle [...] additional sample may be indicated. Reference: Third [place] Definition of Myocardial Infarction. Journal of the [employer] [employer] 2012;60:1581-98 Creatine Kinase 60 0 - 200 unit/L [facility] Blood specimen (specimen) 07/17/2017 12:30 AM EDT 07/17/2017 1:13 AM EDT Narrative Resulting Agency Comment Spec In Lab Sriram Contreras MD CHEMISTRY ORDERABL ES [facility] [place] [address] * XR Chest PA or AP 1 [...] Cardiac Enzymes (07/16/2017 5:10 PM EDT) Pathologist [facility] Troponin-T <0.01 0.00 - 0.00 ng/mL [facility] Comment: The 99th percentile for [...] ischemia ?? New or presumed new significant TF-ycdcziw-V wave (ST-T) changes or new left bundle [...] additional sample may be indicated. Reference: Third [place] Definition of Myocardial Infarction. Journal of the [place] [employer] 2012;60:1581-98 Creatine Kinase 63 0 - 200 unit/L [facility] Blood specimen (specimen) 07/16/2017 5:10 PM EDT 07/16/2017 5:20 PM EDT Narrative Resulting Agency Comment Spec In Lab Sriram Contreras MD CHEMISTRY ORDERABL ES [facility] [place] [address] * EKG 12 Lead (07/16/2017 4:46 PM EDT) Ventricular rate 70 BPM MUSE SYSTEM Atrial Rate 70 BPM MUSE SYSTEM P-R Interval 208 ms MUSE SYSTEM QRS Duration 96 ms MUSE SYSTEM Q-T Interval 404 ms MUSE SYSTEM QTC Calculated (Bezet) 436 ms MUSE SYSTEM Calculated P Seymour 57 degrees MUSE SYSTEM Calculated R Seym[place] 54 degrees MUSE SYSTEM Calculated T Seym[place] 50 degrees MUSE SYSTEM INTERPRETATION Sinus rhythm with frequent Premature ventricular complexes in a pattern of bigeminy Otherwise normal ECG Confirmed by MD Bello Douglas ([id number]) on 07/17/2017 2:06:02 PM MUSE SYSTEM 07/16/2017 4:46 PM EDT 07/17/2017 2:06 PM EDT Sriram Contreras MD ECG ORDERABLES Performing Organization Address City/[facility]/ZIP Co de Phone Number MUSE SYSTEM * Magnesium (07/16/2017 4:00 AM EDT) Magnesium 0.82 0.69 - 1.07 mmol/L [facility] Blood specimen (specimen) Venous Draw / Unknown 07/16/2017 4:00 AM EDT 07/16/2017 4:18 AM EDT Narrative Resulting Agency Comment Spec In Lab Sriram Contreras MD CHEMISTRY ORDERABL ES Performing Organization Address [facility] Co de Phone Number [facility] [place] [address] * (ABNORMAL) Differential, Automated (07/16/2017 4:00 AM EDT) Neutrophil % 81.3 % [facility] Neutrophil Absolute 8.31(H) 1.70 - 6.10 x10(3)/mc L [facility] Lymph % 10.7 % [facility] Lymphocytes Abs 1.1 0.9 - 3.2 x10(3)/mc L [facility] Monocyte % 6.8 % [facility] Monocyte Abs 0.7 0.3 - 0.9 x10(3)/mc L [facility] Eos % 0.3 % [facility] Eosinophils Abs 0.0 0.0 - 0.4 x10(3)/mc L [facility] Basophil % 0.4 % [facility] Baso Absolute 0.0 0.0 - 0.1 x10(3)/mc L [facility] Immature Gran % 0.50 % [facility] Comment: Immature granulocytes(IG's)percentage and absolute count will include metamyelocytes, myelocytes, and promyelocytes. Blood smears from CBCs yielding IG's will be scanned manually for concordance. If this scan disagrees with the automated IG or if promyelocytes are noted, a manual differential will be performed. Immature Gran Absolute 0.05(H) 0.00 - 0.04 x10(3)/[facility] Blood specimen (specimen) 07/16/2017 4:00 AM EDT 07/16/2017 4:16 AM EDT Narrative Resulting Agency Comment Spec In Lab Sriram Contreras MD HEMATOLOGY ORDERAB LES [facility] [place] [address] * (ABNORMAL) Hemogram (07/16/2017 4:00 AM EDT) White Blood Cell 10.2(H) 4.0 - 9.5 x10(3)/[facility] Red Blood Cell 3.95(L) 4.58 - 5.54 x10(6)/[facility] Hemoglobin 12.4(L) 13.7 - 16.5 gm/dL [facility] Hematocrit 37.2(L) 40.5 - 48.5 % [facility] Mean Cell Volume 94.2(H) 82.9 - 93.1 fL [facility] Mean Cell Hemoglobin 31.4 27.5 - 32.1 pg [facility] Mean Cell Hemoglobin Concentration 33.3 32.0 - 35.7 gm/dL [facility] Platelet 126(L) 145 - 357 x10(3)/[facility] RDW Standard Deviation 50.0(H) 36.0 - 45.0 fL [facility] RDW coefficient of variation 14.3(H) 11.4 - 13.8 % [facility] Mean Platelet Volume 10.3 7.6 - 12.9 fL [facility] NRBC% auto 0.0 % [facility] NRBC Absolute 0.000 0.000 - 0.000 x10(3)/mc L [facility] Blood specimen (specimen) 07/16/2017 4:00 AM EDT 07/16/2017 4:16 AM EDT Narrative Resulting Agency Comment Spec In Lab Sriram Contreras MD HEMATOLOGY ORDERAB LES [facility] [place] [address] * (ABNORMAL) Basic Metabolic Panel (non-fasting) (07/16/2017 4:00 AM EDT) Glucose 131 65 - 199 mg/dL [facility] Comment:Diabetes: >=200 mg/d L plus symptoms Blood Urea Nitrogen 16 10 - 20 mg/dL [facility] Creatinine 0.82 0.80 - 1.50 mg/dL [facility] Comment: Please note that the pediatric reference intervals supplied above were not validated at [facility]. Results from pediatric patients should be interpreted in conjunction to the patient's age, height and muscle mass. Sodium 144 135 - 145 mmol/L [facility] Potassium 4.2 3.5 - 5.0 mmol/L [facility] Comment: Please note: ??Patients with WBC >100,000 may have falsely elevated Potassium levels. ??For accurate Potassium quantification in these patients send serum separator tube (gold top) for subsequent determinations. ??Contact the Clinical Chemistry Laboratory if there are any questions. Chloride 106 98 - 107 mmol/L [facility] Carbon Dioxide 21(L) 22 - 31 mmol/L [facility] Anion Gap 17(H) 5 - 15 mmol/L [facility] Calcium 8.1(L) 8.5 - 10.5 mg/dL [facility] Est Glomerular Filtration Rate >60 >=60 [facility] Comment: This estimated GFR (eGFR) [...] the following links into your internet browser. [email or web address] Blood specimen (specimen) 07/16/2017 4:00 AM EDT 07/16/2017 4:16 AM EDT Narrative Resulting Agency Comment Spec In Lab Sriram Contreras MD CHEMISTRY ORDERABL ES Performing Organization Address [facility] Phone Number [facility] [place] [address] * POCT Glucose (07/15/2017 12:26 PM EDT) Glucose, POC 75 65 - 199 mg/dL [facility] Comment: Supplemental ranges: <140 mg/dL before meals <180 mg/dL all other times of the day Blood specimen (specimen) 07/15/2017 12:26 PM EDT 07/15/2017 12:26 PM EDT Sriram Contreras MD POINT OF CARE TEST ORDERABLES Performing Organization Address [facility] Co de Phone Number [facility] [place] [address] * (ABNORMAL) Basic Metabolic Panel (non-fasting) (07/15/2017 10:20 AM EDT) Glucose 111 65 - 199 mg/dL [facility] Comment:Diabetes: >=200 mg/d L plus symptoms Blood Urea Nitrogen 19 10 - 20 mg/dL [facility] Creatinine 0.96 0.80 - 1.50 mg/dL [facility] Comment: Please note that the pediatric reference intervals supplied above were not validated at [facility]. Results from pediatric patients should be interpreted in conjunction to the patient's age, height and muscle mass. Sodium 143 135 - 145 mmol/L [facility] Potassium 4.0 3.5 - 5.0 mmol/L [facility] Comment: Please note: ??Patients with WBC >100,000 may have falsely elevated Potassium levels. ??For accurate Potassium quantification in these patients send serum separator tube (gold top) for subsequent determinations. ??Contact the Clinical Chemistry Laboratory if there are any questions. Chloride 107 98 - 107 mmol/L [facility] Carbon Dioxide 22 22 - 31 mmol/L [facility] Anion Gap 14 5 - 15 mmol/L [facility] Calcium 8.2(L) 8.5 - 10.5 mg/dL [facility] Est Glomerular Filtration Rate >60 >=60 [facility] Comment: This estimated GFR (eGFR) [...] the following links into your internet browser. [email or web address] Blood specimen (specimen) 07/15/2017 10:20 AM EDT 07/15/2017 10:24 AM EDT Narrative Resulting Agency Comment Spec In Lab Sriram Contreras MD CHEMISTRY ORDERABL ES [facility] [place] [address] * POCT Glucose (07/15/2017 8:30 AM EDT) Glucose, POC 111 65 - 199 mg/dL [facility] Comment: Supplemental ranges: <140 mg/dL before meals <180 mg/dL all other times of the day Blood specimen (specimen) 07/15/2017 8:30 AM EDT 07/15/2017 8:30 AM EDT Sriram Contreras MD POINT OF CARE TEST ORDERABLES [facility] [place] [address] * (ABNORMAL) BLOOD GAS 2 ARTERIAL (07/15/2017 4:17 AM EDT) pH, Arterial 7.38 7.35 - 7.45 [facility] PCO2, Arterial 42 35 - 45 mmHg [facility] PO2, Arterial 61(L) 85 - 104 mmHg [facility] Bicarbonate, Arterial 24.6 20.0 - 26.0 mmol/L [facility] Base Excess, Arterial -0.4 -3.0 - 3.0 mmol/L [facility] Hgb Blood Gas 14.0 13.7 - 16.5 gm/dL [facility] Oxyhemoglobin, Arterial 90.6(L) 94.0 - 97.0 % [facility] Carboxyhemoglob in, Arterial 0.2 % [facility] Comment: Nonsmokers: 0.5-1.5% COHB Smokers: Variable, but usually less than 10% Toxic: 20-30% COHB Lethal: Greater than 60% COHB Methemoglobin, Arterial 0.5 <=1.5 % [facility] Na Whole Blood 139 135 - 145 mmol/L [facility] K Whole Blood 4.1 3.5 - 5.0 mmol/L [facility] Comment: Please note: Patients with WBC >100,000 may have falsely elevated Potassium levels. Contact the Clinical Chemistry Laboratory if there are any questions. ICa Whole Blood 1.19 1.15 - 1.33 mmol/L [facility] Comment: Note: ??Total bilirubin higher than 20 mg/dL may lead to falsely low ionized calcium. CL Whole Blood 106 98 - 107 mmol/L [facility] Gluc Whole Bld 130 65 - 199 mg/dL [facility] Comment:Diabetes: >=200 mg/d L plus symptoms. Lactate WB 1.9 0.5 - 2.2 mmol/L [facility] FIO2 Art 35 % [facility] PF Ratio Art 174 [facility] Blood specimen (specimen) 07/15/2017 4:17 AM EDT 07/15/2017 4:17 AM EDT Sriram Contreras MD POINT OF CARE TEST ORDERABLES Performing Organization Address City/State/[facility] Co de Phone Number [facility] [place] [address] * (ABNORMAL) Differential, Automated (07/15/2017 4:15 AM EDT) Neutrophil % 84.7 % [facility] Neutrophil Absolute 12.39(H) 1.70 - 6.10 x10(3)/mc L [facility] Lymph % 6.2 % [facility] Lymphocytes Abs 0.9 0.9 - 3.2 x10(3)/mc L [facility] Monocyte % 8.0 % [facility] Monocyte Abs 1.2(H) 0.3 - 0.9 x10(3)/mc L [facility] Eos % 0.0 % [facility] Eosinophils Abs 0.0 0.0 - 0.4 x10(3)/mc L [facility] Basophil % 0.1 % [facility] Baso Absolute 0.0 0.0 - 0.1 x10(3)/mc L [facility] Immature Gran % 1.00 % [facility] Comment: Immature granulocytes(IG's)percentage and absolute count will include metamyelocytes, myelocytes, and promyelocytes. Blood smears from CBCs yielding IG's will be scanned manually for concordance. If this scan disagrees with the automated IG or if promyelocytes are noted, a manual differential will be performed. Immature Gran Absolute 0.14(H) 0.00 - 0.04 x10(3)/mc L [facility] Blood specimen (specimen) 07/15/2017 4:15 AM EDT 07/15/2017 4:28 AM EDT Narrative Resulting Agency Comment Spec In Lab Sriram Contreras MD HEMATOLOGY ORDERAB LES [facility] [place] [address] * (ABNORMAL) Hemogram (07/15/2017 4:15 AM EDT) White Blood Cell 14.6(H) 4.0 - 9.5 x10(3)/mc L [facility] Red Blood Cell 4.16(L) 4.58 - 5.54 x10(6)/mc L [facility] Hemoglobin 13.0(L) 13.7 - 16.5 gm/dL [facility] Hematocrit 38.9(L) 40.5 - 48.5 % [facility] Mean Cell Volume 93.5(H) 82.9 - 93.1 fL [facility] Mean Cell Hemoglobin 31.3 27.5 - 32.1 pg [facility] Mean Cell Hemoglobin Concentration 33.4 32.0 - 35.7 gm/dL [facility] Platelet 135(L) 145 - 357 x10(3)/mc L [facility] RDW Standard Deviation 48.8(H) 36.0 - 45.0 fL [facility] RDW coefficient of variation 14.2(H) 11.4 - 13.8 % [facility] Mean Platelet Volume 10.0 7.6 - 12.9 fL [facility] NRBC% auto 0.0 % [facility] NRBC Absolute 0.000 0.000 - 0.000 x10(3)/mc L [facility] Blood specimen (specimen) 07/15/2017 4:15 AM EDT 07/15/2017 4:28 AM EDT Narrative Resulting Agency Comment Spec In Lab Sriram Contreras MD HEMATOLOGY ORDERAB LES Performing Organization Address [facility] de Phone Number [facility] [place] [address] * Potassium (07/14/2017 8:20 PM EDT) Potassium 4.4 3.5 - 5.0 mmol/L [facility] Comment: Please note: ??Patients with [...] MD CHEMISTRY ORDERABL ES Performing Organization Address [facility] Phone Number [facility] [place] [address] * (ABNORMAL) Magnesium (07/14/2017 8:20 PM EDT) Magnesium 1.08(H) 0.69 - 1.07 mmol/L [facility] Blood specimen (specimen) 07/14/2017 8:20 PM EDT 07/14/2017 8:31 PM EDT Narrative Resulting Agency Comment Spec In Lab Sriram Contreras MD CHEMISTRY ORDERABL ES Performing Organization Address [facility] de Phone Number [facility] [place] [address] * Magnesium (07/14/2017 4:30 PM EDT) Magnesium 0.86 0.69 - 1.07 mmol/L [facility] Blood specimen (specimen) 07/14/2017 4:30 PM EDT 07/14/2017 4:50 PM EDT Narrative Resulting Agency Comment Spec In Lab Sriram Contreras MD CHEMISTRY ORDERABL ES Performing Organization Address [facility] Co de Phone Number [facility] [place] [address] * POCT Glucose (07/14/2017 4:26 PM EDT) Glucose, POC 146 65 - 199 mg/dL [facility] Comment: Supplemental ranges: <140 mg/dL before meals <180 mg/dL all other times of the day Blood specimen (specimen) 07/14/2017 4:26 PM EDT 07/14/2017 4:26 PM EDT Sriram Contreras MD POINT OF CARE TEST ORDERABLES Performing Organization Address [facility] Co de Phone Number [facility] [place] [address] * EKG 12 Lead (07/14/2017 12:37 PM EDT) Ventricular rate 67 BPM MUSE SYSTEM Atrial Rate 67 BPM MUSE SYSTEM P-R Interval 216 ms MUSE SYSTEM QRS Duration 100 ms MUSE SYSTEM Q-T Interval 438 ms MUSE SYSTEM QTC Calculated (Bezet) 462 ms MUSE SYSTEM Calculated P Seymour 58 degrees MUSE SYSTEM Calculated R Seym[place] 56 degrees MUSE SYSTEM Calculated T Seym[place] 38 degrees MUSE SYSTEM INTERPRETATION Sinus rhythm with 1st degree A-V block Otherwise normal ECG When compared with ECG of 29-MAR-1997 12:50, [place] interval has increased Confirmed by MD Radha, Daryl ([id number]) on 07/14/2017 5:07:22 PM MUSE SYSTEM 07/14/2017 12:3 7 PM EDT 07/14/2017 5:07 PM EDT Sriram Contreras MD ECG ORDERABLES Performing Organization Address [facility] Co de Phone Number MUSE SYSTEM * POCT Glucose (07/14/2017 12:05 PM EDT) Glucose, POC 147 65 - 199 mg/dL [facility] Comment: Supplemental ranges: <140 mg/dL before meals <180 mg/dL all other times of the day Blood specimen (specimen) 07/14/2017 12:05 PM EDT 07/14/2017 12:05 PM EDT Sriram Contreras MD POINT OF CARE TEST ORDERABLES Performing Organization Address City/[facility] Co de Phone Number [facility] [place] [address] * POCT Glucose (07/14/2017 8:25 AM EDT) Glucose, POC 140 65 - 199 mg/dL [facility] Comment: Supplemental ranges: <140 mg/dL before meals <180 mg/dL all other times of the day Blood specimen (specimen) 07/14/2017 8:25 AM EDT 07/14/2017 8:25 AM EDT Sriram Contreras MD POINT OF CARE TEST ORDERABLES Performing Organization Address [facility] Co de Phone Number [facility] [place] [address] * (ABNORMAL) Differential, Automated (07/14/2017 12:36 AM EDT) Pathologist [facility] Neutrophil % 90.3 % [facility] Neutrophil Absolute 13.17(H) 1.70 - 6.10 x10(3)/mc L [facility] Lymph % 3.8 % [facility] Lymphocytes Abs 0.6(L) 0.9 - 3.2 x10(3)/mc L [facility] Monocyte % 5.4 % [facility] Monocyte Abs 0.8 0.3 - 0.9 x10(3)/mc L [facility] Eos % 0.0 % [facility] Eosinophils Abs 0.0 0.0 - 0.4 x10(3)/ L [facility] Basophil % 0.1 % [facility] Baso Absolute 0.0 0.0 - 0.1 x10(3)/[facility] Immature Gran % 0.40 % [facility] Comment: Immature granulocytes(IG's)percentage and absolute count will include metamyelocytes, myelocytes, and promyelocytes. Blood smears from CBCs yielding IG's will be scanned manually for concordance. If this scan disagrees with the automated IG or if promyelocytes are noted, a manual differential will be performed. Immature Gran Absolute 0.06(H) 0.00 - 0.04 x10(3)/[facility] Blood specimen (specimen) 07/14/2017 12:36 AM EDT 07/14/2017 12:41 AM EDT Narrative Resulting Agency Comment Spec In Lab Sriram Contreras MD HEMATOLOGY ORDERAB LES [facility] [place] [address] * (ABNORMAL) Hemogram (07/14/2017 12:36 AM EDT) White Blood Cell 14.6(H) 4.0 - 9.5 x10(3)/[facility] Red Blood Cell 4.57(L) 4.58 - 5.54 x10(6)/ L [facility] Hemoglobin 14.1 13.7 - 16.5 gm/dL [facility] Hematocrit 42.1 40.5 - 48.5 % [facility] Mean Cell Volume 92.1 82.9 - 93.1 fL [facility] Mean Cell Hemoglobin 30.9 27.5 - 32.1 pg [facility] Mean Cell Hemoglobin Concentration 33.5 32.0 - 35.7 gm/dL [facility] Platelet 157 145 - 357 x10(3)/[facility] RDW Standard Deviation 48.6(H) 36.0 - 45.0 fL [facility] RDW coefficient of variation 14.4(H) 11.4 - 13.8 % [facility] Mean Platelet Volume 10.2 7.6 - 12.9 fL [facility] NRBC% auto 0.0 % [facility] NRBC Absolute 0.000 0.000 - 0.000 x10(3)/mc L [facility] Blood specimen (specimen) 07/14/2017 12:36 AM EDT 07/14/2017 12:41 AM EDT Narrative Resulting Agency Comment Spec In Lab Sriram Contreras MD HEMATOLOGY ORDERAB LES Performing Organization Address [facility] Co de Phone Number [facility] [place] [address] * (ABNORMAL) Magnesium (07/14/2017 12:36 AM EDT) Magnesium 0.65(L) 0.69 - 1.07 mmol/L [facility] Blood specimen (specimen) 07/14/2017 12:36 AM EDT 07/14/2017 12:41 AM EDT Narrative Resulting Agency Comment Spec In Lab Sriram Contreras MD CHEMISTRY ORDERABL ES Performing Organization Address [facility] de Phone Number [facility] [place] [address] * Phosphorus (07/14/2017 12:36 AM EDT) Phosphorus 3.3 2.5 - 4.5 mg/dL [facility] Blood specimen (specimen) 07/14/2017 12:36 AM EDT 07/14/2017 12:41 AM EDT Narrative Resulting Agency Comment Spec In Lab Sriram Contreras MD CHEMISTRY ORDERABL ES Performing Organization Address [facility] Co de Phone Number [facility] [place] [address] * Prealbumin (07/14/2017 12:36 AM EDT) Prealbumin 23 20 - 40 mg/dL [facility] Comment: Prealbumin levels are generally lower in the pediatric population; adult concentrations are usually attained near puberty. Blood specimen (specimen) 07/14/2017 12:36 AM EDT 07/14/2017 12:45 AM EDT Narrative Resulting Agency Comment Spec In Lab Sriram Contreras MD CHEMISTRY ORDERABL ES [facility] [place] [address] * (ABNORMAL) Basic Metabolic Panel (non-fasting) (07/14/2017 12:36 AM EDT) Glucose 161 65 - 199 mg/dL [facility] Comment:Diabetes: >=200 mg/d L plus symptoms Blood Urea Nitrogen 16 10 - 20 mg/dL [facility] Creatinine 0.97 0.80 - 1.50 mg/dL [facility] Comment: Please note that the pediatric reference intervals supplied above were not validated at [facility]. Results from pediatric patients should be interpreted in conjunction to the patient's age, height and muscle mass. Sodium 144 135 - 145 mmol/L [facility] Potassium 4.5 3.5 - 5.0 mmol/L [facility] Comment: result rechecked- Please note: ??Patients with WBC >100,000 may have falsely elevated Potassium levels. ??For accurate Potassium quantification in these patients send serum separator tube (gold top) for subsequent determinations. ??Contact the Clinical Chemistry Laboratory if there are any questions. Chloride 108(H) 98 - 107 mmol/L [facility] Carbon Dioxide 19(L) 22 - 31 mmol/L [facility] Anion Gap 17(H) 5 - 15 mmol/L [facility] Calcium 7.7(L) 8.5 - 10.5 mg/dL [facility] Est Glomerular Filtration Rate >60 >=60 [facility] Comment: This estimated GFR (eGFR) [...] the following links into your internet browser. [email or web address] Blood specimen (specimen) 07/14/2017 12:36 AM EDT 07/14/2017 12:41 AM EDT Narrative Resulting Agency Comment Spec In Lab Sriram Contreras MD CHEMISTRY ORDERABL ES [facility] [place] [address] * (ABNORMAL) Basic Metabolic Panel (non-fasting) (07/13/2017 9:33 PM EDT) Glucose 147 65 - 199 mg/dL [facility] Comment:Diabetes: >=200 mg/d L plus symptoms Blood Urea Nitrogen 17 10 - 20 mg/dL [facility] Creatinine 1.16 0.80 - 1.50 mg/dL [facility] Comment: Please note that the pediatric reference intervals supplied above were not validated at [facility]. Results from pediatric patients should be interpreted in conjunction to the patient's age, height and muscle mass. Sodium Not Perf 135 - 145 mmol/L [facility] Comment: Unable to quantitate due to sample hemolysis. ??Sample redraw suggested. Called by: michael, Read back by: maddie rucker, Date/Time:07/13/17 22:12. Potassium Not Perf 3.5 - 5.0 mmol/L [facility] Comment: Unable to quantitate due [...] Chloride Not Perf 98 - 107 mmol/L [facility] Comment: Unable to quantitate due to sample hemolysis. ??Sample redraw suggested. Called by: michael, Read back by: maddie rucker, Date/Time:07/13/17 22:12. Carbon Dioxide 18(L) 22 - 31 mmol/L [facility] Anion Gap Not Calculated 5 - 15 mmol/L [facility] Calcium 7.3(L) 8.5 - 10.5 mg/dL [facility] Est Glomerular Filtration Rate >60 >=60 [facility] Comment: This estimated GFR (eGFR) [...] the following links into your internet browser. [email or web address] Blood specimen (specimen) 07/13/2017 9:33 PM EDT 07/13/2017 9:41 PM EDT Narrative Resulting Agency Comment Spec In Lab Sriram Contreras MD CHEMISTRY ORDERABL ES [facility] [place] [address] * XR Chest PA or AP 1 [...] PM EDT 07/13/2017 7:35 PM EDT Narrative [facility] - 07/13/2017 7:35 PM EDT Specimen requisition ordered. ??Separate Pathology report to follow Sriram Contreras MD PATHOLOGY/CYTOLOGY ORDERABLES [facility] [place] [address] * Specimen to Pathology (surgical or derm) (07/13/2017 7:05 PM EDT) AP Specimen 07/13/2017 7:05 PM EDT 07/13/2017 7:05 PM EDT Narrative [facility] - 07/13/2017 7:05 PM EDT Specimen requisition ordered. ??Separate Pathology report to follow Sriram Contreras MD PATHOLOGY/CYTOLOGY ORDERABLES Performing Organization Address City/[facility]/Z[place] [address] * Specimen to Pathology (surgical or derm) (07/13/2017 6:21 PM EDT) AP Specimen 07/13/2017 6:21 PM EDT 07/13/2017 6:21 PM EDT Narrative [facility] - 07/13/2017 6:21 PM EDT Specimen requisition ordered. ??Separate Pathology report to follow Srirma Contreras MD PATHOLOGY/CYTOLOGY ORDERABLES Performing Organization Address [facility] [place] [address] * Specimen to Pathology (surgical or derm) (07/13/2017 5:30 PM EDT) AP Specimen 07/13/2017 5:30 PM EDT 07/13/2017 5:30 PM EDT Narrative [facility] - 07/13/2017 5:30 PM EDT Specimen requisition ordered. ??Separate Pathology report to follow Sriram Contreras MD PATHOLOGY/CYTOLOGY ORDERABLES Performing Organization Address City/[facility]/[place] [address] * Specimen to Pathology (surgical or derm) (07/13/2017 5:30 PM EDT) AP Specimen 07/13/2017 5:30 PM EDT 07/13/2017 5:30 PM EDT Narrative [facility] - 07/13/2017 5:30 PM EDT Specimen requisition ordered. ??Separate Pathology report to follow Sriram Contreras MD PATHOLOGY/CYTOLOGY ORDERABLES Performing Organization Address City/[facility]/[place] [address] * Specimen to Pathology (surgical or derm) (07/13/2017 5:30 PM EDT) AP Specimen 07/13/2017 5:30 PM EDT 07/13/2017 5:30 PM EDT Narrative [facility] - 07/13/2017 5:30 PM EDT Specimen requisition ordered. ??Separate Pathology report to follow Sriram Contreras MD PATHOLOGY/CYTOLOGY ORDERABLES [facility] [place] [address] * Specimen to Pathology (surgical or derm) (07/13/2017 5:30 PM EDT) AP Specimen 07/13/2017 5:30 PM EDT 07/13/2017 5:30 PM EDT Narrative [facility] - 07/13/2017 5:30 PM EDT Specimen requisition ordered. ??Separate Pathology report to follow Sriram Contreras MD PATHOLOGY/CYTOLOGY ORDERABLES [facility] [place] [address] * Specimen to Pathology (surgical or derm) (07/13/2017 5:21 PM EDT) AP Specimen 07/13/2017 5:21 PM EDT 07/13/2017 5:21 PM EDT Narrative [facility] - 07/13/2017 5:21 PM EDT Specimen requisition ordered. ??Separate Pathology report to follow Sriram Contreras MD PATHOLOGY/[place] [address] * Specimen to Pathology (surgical or derm) (07/13/2017 5:21 PM EDT) AP Specimen 07/13/2017 5:21 PM EDT 07/13/2017 5:21 PM EDT Narrative [facility] - 07/13/2017 5:21 PM EDT Specimen requisition ordered. ??Separate Pathology report to follow Sriram Contreras MD PATHOLOGY/CYTOLOGY ORDERABLES Performing Organization Address City/[facility]/[place] [address] * Specimen to Pathology (surgical or derm) (07/13/2017 5:21 PM EDT) AP Specimen 07/13/2017 5:21 PM EDT 07/13/2017 5:21 PM EDT Narrative [facility] - 07/13/2017 5:21 PM EDT Specimen requisition ordered. ??Separate Pathology report to follow Sriram Contreras MD PATHOLOGY/CYTOLOGY ORDERABLES Performing Organization Address City/[facility]/[place] [address] * Specimen to Pathology (surgical or derm) (07/13/2017 5:16 PM EDT) AP Specimen 07/13/2017 5:16 PM EDT 07/13/2017 5:16 PM EDT Narrative [facility] - 07/13/2017 5:16 PM EDT Specimen requisition ordered. ??Separate Pathology report to follow Sriram Contreras MD PATHOLOGY/CYTOLOGY ORDERABLES Performing Organization Address City/[facility]/[place] [address] * Specimen to Pathology (surgical or derm) (07/13/2017 5:05 PM EDT) AP Specimen 07/13/2017 5:05 PM EDT 07/13/2017 5:05 PM EDT Narrative [facility] - 07/13/2017 5:05 PM EDT Specimen requisition ordered. ??Separate Pathology report to follow Sriram Contreras MD PATHOLOGY/CYTOLOGY ORDERABLES Performing Organization Address City/[facility]/[place] [address] * Specimen to Pathology (surgical or derm) (07/13/2017 5:05 PM EDT) AP Specimen 07/13/2017 5:05 PM EDT 07/13/2017 5:05 PM EDT [facility] - 07/13/2017 5:05 PM EDT Specimen requisition ordered. ??Separate Pathology report to follow Sriram Contreras MD PATHOLOGY/CYTOLOGY ORDERABLES [facility] [place] [address] * Specimen to Pathology (surgical or derm) (07/13/2017 4:39 PM EDT) AP Specimen 07/13/2017 4:39 PM EDT 07/13/2017 4:39 PM EDT [facility] - 07/13/2017 4:39 PM EDT Specimen requisition ordered. ??Separate Pathology report to follow Sriram Contreras MD PATHOLOGY/CYTOLOGY ORDERABLES [facility] [place] [address] * Specimen to Pathology (surgical or derm) (07/13/2017 4:35 PM EDT) AP Specimen 07/13/2017 4:35 PM EDT 07/13/2017 4:35 PM EDT [facility] - 07/13/2017 4:35 PM EDT Specimen requisition ordered. ??Separate Pathology report to follow Sriram Contreras MD PATHOLOGY/[place] [address] * Specimen to Pathology (surgical or derm) (07/13/2017 4:35 PM EDT) AP Specimen 07/13/2017 4:35 PM EDT 07/13/2017 4:35 PM EDT [facility] - 07/13/2017 4:35 PM EDT Specimen requisition ordered. ??Separate Pathology report to follow Sriram Contreras MD PATHOLOGY/CYTOLOGY ORDERABLES Performing Organization Address [facility]/[place] [address] * Specimen to Pathology (surgical or derm) (07/13/2017 3:52 PM EDT) AP Specimen 07/13/2017 3:52 PM EDT 07/13/2017 3:52 PM EDT Narrative [facility] - 07/13/2017 3:52 PM EDT Specimen requisition ordered. ??Separate Pathology report to follow Sriram Contreras MD PATHOLOGY/CYTOLOGY ORDERABLES Performing Organization Address [facility] [place] [address] * Specimen to Pathology (surgical or derm) (07/13/2017 3:52 PM EDT) AP Specimen 07/13/2017 3:52 PM EDT 07/13/2017 3:52 PM EDT Narrative [facility] - 07/13/2017 3:52 PM EDT Specimen requisition ordered. ??Separate Pathology report to follow Sriram Contreras MD PATHOLOGY/CYTOLOGY ORDERABLES Performing Organization Address [facility] [place] [address] * (ABNORMAL) BLOOD GAS 2 ARTERIAL (07/13/2017 3:46 PM EDT) pH, Arterial 7.31(L) 7.35 - 7.45 [facility] PCO2, Arterial 37 35 - 45 mmHg [facility] PO2, Arterial 103 85 - 104 mmHg [facility] Bicarbonate, Arterial 17.8(L) 20.0 - 26.0 mmol/L [facility] Base Excess, Arterial -8.5(L) -3.0 - 3.0 mmol/L [facility] Hgb Blood Gas 15.1 13.7 - 16.5 gm/dL [facility] Oxyhemoglobin, Arterial 96.6 94.0 - 97.0 % [facility] Carboxyhemoglob in, Arterial 0.4 % [facility] Comment: Nonsmokers: 0.5-1.5% COHB Smokers: Variable, but usually less than 10% Toxic: 20-30% COHB Lethal: Greater than 60% COHB Methemoglobin, Arterial 0.3 <=1.5 % [facility] Na Whole Blood 139 135 - 145 mmol/L [facility] K Whole Blood 4.5 3.5 - 5.0 mmol/L [facility] Comment: Please note: Patients with WBC >100,000 may have falsely elevated Potassium levels. Contact the Clinical Chemistry Laboratory if there are any questions. ICa Whole Blood 1.12(L) 1.15 - 1.33 mmol/L [facility] Comment: Note: ??Total bilirubin higher than 20 mg/dL may lead to falsely low ionized calcium. CL Whole Blood 110(H) 98 - 107 mmol/L [facility] Gluc Whole Bld 118 65 - 199 mg/dL [facility] Comment:Diabetes: >=200 mg/d L plus symptoms. Lactate WB 2.9(H) 0.5 - 2.2 mmol/L [facility] Blood specimen (specimen) 07/13/2017 3:46 PM EDT 07/13/2017 3:46 PM EDT Sriram Contreras MD POINT OF CARE TEST ORDERABLES [facility] [place] [address] * (ABNORMAL) BLOOD GAS 2 ARTERIAL (07/13/2017 2:06 PM EDT) pH, Arterial 7.32(L) 7.35 - 7.45 [facility] PCO2, Arterial 32(L) 35 - 45 mmHg [facility] PO2, Arterial 96 85 - 104 mmHg [facility] Bicarbonate, Arterial 16.0(L) 20.0 - 26.0 mmol/L [facility] Base Excess, Arterial -10.1(L) -3.0 - 3.0 mmol/L [facility] Hgb Blood Gas 14.0 13.7 - 16.5 gm/dL [facility] Oxyhemoglobin, Arterial 96.1 94.0 - 97.0 % [facility] Carboxyhemoglob in, Arterial 1.1 % [facility] Comment: Nonsmokers: 0.5-1.5% COHB Smokers: Variable, but usually less than 10% Toxic: 20-30% COHB Lethal: Greater than 60% COHB Methemoglobin, Arterial 0.3 <=1.5 % [facility] Na Whole Blood 139 135 - 145 mmol/L [facility] K Whole Blood 3.8 3.5 - 5.0 mmol/L [facility] Comment: Please note: Patients with WBC >100,000 may have falsely elevated Potassium levels. Contact the Clinical Chemistry Laboratory if there are any questions. ICa Whole Blood 1.02(L) 1.15 - 1.33 mmol/L [facility] Comment: Note: ??Total bilirubin higher than 20 mg/dL may lead to falsely low ionized calcium. CL Whole Blood 115(H) 98 - 107 mmol/L [facility] Gluc Whole Bld 111 65 - 199 mg/dL [facility] Comment:Diabetes: >=200 mg/d L plus symptoms. Lactate WB 2.5(H) 0.5 - 2.2 mmol/L [facility] Blood specimen (specimen) 07/13/2017 2:06 PM EDT 07/13/2017 2:06 PM EDT Sriram Contreras MD POINT OF CARE TEST ORDERABLES [facility] [place] [address] * (ABNORMAL) Comprehensive metabolic panel (non-fasting) (07/13/2017 12:56 PM EDT) Glucose 155 65 - 199 mg/dL [facility] Comment:Diabetes: >=200 mg/d L plus symptoms Blood Urea Nitrogen 17 10 - 20 mg/dL [facility] Creatinine 1.06 0.80 - 1.50 mg/dL [facility] Comment: Please note that the pediatric reference intervals supplied above were not validated at [facility]. Results from pediatric patients should be interpreted in conjunction to the patient's age, height and muscle mass. Sodium 142 135 - 145 mmol/L [facility] Potassium 5.7(H) 3.5 - 5.0 mmol/L [facility] Comment: Please note: ??Patients with WBC >100,000 may have falsely elevated Potassium levels. ??For accurate Potassium quantification in these patients send serum separator tube (gold top) for subsequent determinations. ??Contact the Clinical Chemistry Laboratory if there are any questions. Chloride 108(H) 98 - 107 mmol/L [facility] Carbon Dioxide 20(L) 22 - 31 mmol/L [facility] Anion Gap 14 5 - 15 mmol/L [facility] Calcium 7.9(L) 8.5 - 10.5 mg/dL [facility] Protein, Total 6.2 6.1 - 8.0 gm/dL [facility] Albumin 3.6 3.2 - 5.2 gm/dL [facility] Aspartate Aminotransferase 15 0 - 39 unit/L [facility] Alanine Aminotransferase 13 0 - 55 unit/L [facility] Alkaline Phosphatase 70 40 - 120 unit/L [facility] Bilirubin, Total 0.2 0.2 - 1.3 mg/dL [facility] Est Glomerular Filtration Rate >60 >=60 [facility] Comment: This estimated GFR (eGFR) [...] the following links into your internet browser. [email or web address] Blood specimen (specimen) 07/13/2017 12:56 PM EDT 07/13/2017 1:02 PM EDT Narrative Resulting Agency Comment Spec In Lab Sriram Contreras MD CHEMISTRY ORDERABL ES [facility] [place] [address] * (ABNORMAL) BLOOD GAS 2 ARTERIAL (07/13/2017 12:15 PM EDT) pH, Arterial 7.34(L) 7.35 - 7.45 [facility] PCO2, Arterial 39 35 - 45 mmHg [facility] PO2, Arterial 68(L) 85 - 104 mmHg [facility] Bicarbonate, Arterial 20.4 20.0 - 26.0 mmol/L [facility] Base Excess, Arterial -5.4(L) -3.0 - 3.0 mmol/L [facility] Hgb Blood Gas 15.8 13.7 - 16.5 gm/dL [facility] Oxyhemoglobin, Arterial 91.8(L) 94.0 - 97.0 % [facility] Carboxyhemoglob in, Arterial 0.9 % [facility] Comment: Nonsmokers: 0.5-1.5% COHB Smokers: Variable, but usually less than 10% Toxic: 20-30% COHB Lethal: Greater than 60% COHB Methemoglobin, Arterial 0.3 <=1.5 % [facility] Na Whole Blood 138 135 - 145 mmol/L [facility] K Whole Blood 5.7(H) 3.5 - 5.0 mmol/L [facility] Comment: Please note: Patients with WBC >100,000 may have falsely elevated Potassium levels. Contact the Clinical Chemistry Laboratory if there are any questions. ICa Whole Blood 1.17 1.15 - 1.33 mmol/L [facility] Comment: Note: ??Total bilirubin higher than 20 mg/dL may lead to falsely low ionized calcium. CL Whole Blood 109(H) 98 - 107 mmol/L [facility] Gluc Whole Bld 125 65 - 199 mg/dL [facility] Comment:Diabetes: >=200 mg/d L plus symptoms. Lactate WB 3.7(H) 0.5 - 2.2 mmol/L [facility] Blood specimen (specimen) 07/13/2017 12:15 PM EDT 07/13/2017 12:15 PM EDT Sriram Contreras MD POINT OF CARE TEST ORDERABLES Performing Organization Address City/State/[facility] Co de Phone Number [facility] [place] [address] * Surgical Pathology Report (07/13/2017 12:04 PM EDT) Final Diagnosis [id number] ? Location: ICUS; IC14; A The signing [...] ? All other margins are negative. 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 07/21/2017 9:57 AM EDT [facility] MOUTH REGION STRUCTURE / Unknown [...] PM EDT Sriram Contreras MD PATHOLOGY/[place] [address] * Specimen to Pathology (surgical or derm) (07/13/2017 12:02 PM EDT) AP Specimen 07/13/2017 12:0 2 PM EDT 07/13/2017 12:02 PM EDT Narrative [facility] - 07/13/2017 12:02 PM EDT Specimen requisition ordered. ??Separate Pathology report to follow Sriram Contreras MD PATHOLOGY/CYTOLOGY ORDERABLES Performing Organization Address City/[facility]/ZIP [place] [address] * (ABNORMAL) BLOOD GAS 2 ARTERIAL (07/13/2017 10:35 AM EDT) pH, Arterial 7.31(L) 7.35 - 7.45 [facility] PCO2, Arterial 45 35 - 45 mmHg [facility] PO2, Arterial 87 85 - 104 mmHg [facility] Bicarbonate, Arterial 22.2 20.0 - 26.0 mmol/L [facility] Base Excess, Arterial -4.0(L) -3.0 - 3.0 mmol/L [facility] Hgb Blood Gas 15.6 13.7 - 16.5 gm/dL [facility] Oxyhemoglobin, Arterial 95.0 94.0 - 97.0 % [facility] Carboxyhemoglob in, Arterial 0.9 % [facility] Comment: Nonsmokers: 0.5-1.5% COHB Smokers: Variable, but usually less than 10% Toxic: 20-30% COHB Lethal: Greater than 60% COHB Methemoglobin, Arterial 0.0 <=1.5 % [facility] Na Whole Blood 138 135 - 145 mmol/L [facility] K Whole Blood 5.0 3.5 - 5.0 mmol/L [facility] Comment: Please note: Patients with WBC >100,000 may have falsely elevated Potassium levels. Contact the Clinical Chemistry Laboratory if there are any questions. ICa Whole Blood 1.20 1.15 - 1.33 mmol/L [facility] Comment: Note: ??Total bilirubin higher than 20 mg/dL may lead to falsely low ionized calcium. CL Whole Blood 108(H) 98 - 107 mmol/L [facility] Gluc Whole Bld 119 65 - 199 mg/dL [facility] Comment:Diabetes: >=200 mg/d L plus symptoms. Lactate WB 2.1 0.5 - 2.2 mmol/L [facility] Blood specimen (specimen) 07/13/2017 10:35 AM EDT 07/13/2017 10:35 AM EDT Sriram Contreras MD POINT OF CARE TEST ORDERABLES [facility] [place] [address] * ABORH Recheck Status (07/13/2017 6:27 AM EDT) ABORH Recheck Order Order Placed [facility] ABORH Type Recheck Complete [facility] Blood specimen (specimen) 07/13/2017 6:27 AM EDT 07/13/2017 6:38 AM EDT Narrative Resulting Agency Comment Spec In Lab Sriram Contreras MD BLOOD BANK LAB ORD ERABLES Performing Organization Address [facility] Co de Phone Number [facility] [place] [address] * Antibody screen (07/13/2017 6:27 AM EDT) Ab Screen Interp Negative [facility] Expires at [id number] on: 07/16/2017 [facility] Blood specimen (specimen) 07/13/2017 6:27 AM EDT 07/13/2017 6:43 AM EDT Narrative Resulting Agency Comment Spec In Lab Sirram Contreras MD BLOOD BANK LAB ORD ERABLES Performing Organization Address [facility] Co de Phone Number [facility] [place] [address] * ABO/Rh Typing (07/13/2017 6:27 AM EDT) ABORH Type O Neg [facility] Blood specimen (specimen) 07/13/2017 6:27 AM EDT 07/13/2017 6:43 AM EDT Narrative Resulting Agency Comment Spec In Lab Sriram Contreras MD BLOOD BANK LAB ORD ERABLES Performing Organization Address [facility] Co de Phone Number [facility] [place] [address] documented in this encounter Visit Diagnoses Diagnosis [...] Jv Valdez, BRENNA)[id number] (Given - Provider: Dixie Ranhdawa RN) 0935 (Given - Provider: Jv Valdez [...] Embolism documented in this encounter Care Teams Trade [employer] Specialist Relationship Specialty Start Date End Date Jovon Sifuentes MD [address] [place] [address] PCP - General 09/30/10 09/10/21 documented as of this encounter
--- OUTSIDE RECORDS SUMMARY | 2024-09-01 14:13 | XMS_ITS | Encounter Summary ---
Author Organization Counts Include [address] [facility] [address] Care Team Providers Care Flaking Roll Operator Name Role Phone Jovon Sifuentes MD Primary Care Provider [phone] Encounter Details Date Type Department Care Team (Late st Contact Info) Description 06/03/2017 Notes [place] [address] Jeannie Arteaga MSW CARE MANAGEMENT Social History [...] MSW - 06/03/2017 3:12 PM EDT Continuing Ultrasound Tester - Social Work Note: BUSHER HELPER met with pt to introduce self/role, assess psychosocial needs, and provide resource referrals/support as needed. Pt denies any concerns about insurance, finances, transportation, or community resources at this time. Pt explained that current priority is sorting out medical plan of care. BUSHER HELPER informed pt as to [facility]- role and availability for any needs/questions that arise as the plan of care continues to evolve. Pt met with radiation oncology, medical oncology, and ENT surgeon today; they received a lot of information. Plan of care still undecided (between radiation vs. Surgery). If pt pursues radiation, it would be in [facility], closer to home. No further SW intervention planned at this time, however, I am available for ongoing support and resource referral, as needed Pager [phone] documented in this encounter Plan of Treatment Upcoming Encounters Date Type Department Care Team (Late st Contact Info) Description 09/18/2024 10:20 AM EST Office [place] [address] Sriram Contreras MD [facility] [place] [address] 10/31/2024 1:30 PM EST Office Visit Hematology/Oncology at [address] [phone] Dmitry Bhatti MD [facility] [address] [place] [address] Ellen Mcrae APRN [facility] [place] [address] 10/31/2024 2:00 PM EST Infusion Hematology Oncology at [address] [phone] documented as of this encounter Visit Diagnoses Not on filedocumented in this encounter Care Teams Flaking Roll Operator Relationship Specialty Start Date End Date Jovon Sifuentes MD [address] [place] [address] PCP - General 09/30/10 09/10/21 documented as of this encounter
--- OUTSIDE RECORDS SUMMARY | 2024-09-01 14:13 | XMS_ITS | Encounter Summary ---
Author Organization [facility] Address [facility] [place] [address] Care Team Providers Care National Expansion Recruiter Name Role Phone Jovon Sifuentes MD Primary Care Provider [phone] Reason for Visit * Consultation (Routine) - Closed Specialty Diagnoses / Procedures Referred By Huma t Referred To Contact Radiation Oncology Diagnoses Cancer of base of tongue Zafar Madera MD [facility] [place] [address] [facility] [place] [address] Referral ID Status Reason Start Date Expiration Date V isits Requested Visits Authorized [id number] Closed Consult, Test & Treat 04/27/2017 04/27/2018 1 1 Encounter Details Date Type Department Care Team (Late st Contact Info) Description 06/03/2017 1:00 PM EDT Office [place] [phone] Clement Sanchez MD [facility] [place] [address] Carcinoma of base of tongue [...] Wednesday 8 AM to 5 PM for [facility] for [facility] If you have questions about your [...] in injury A Radiation Oncology doctor is hydro generation supervisor after our normal hours and on weekends. To call for urgent medical issues from radiation treatments that can not wait until normal business hours, please call and have the utility spray operator page the Radiation Oncologist hydro generation supervisor. documented in this encounter Progress Notes * Lina Eledr RN - 06/03/2017 1:00 PM EDT RADIATION [...] if 4 or above SOCIAL ASSESSMENT: See [facility] social assessment information entered. Support Systems: Briana, Spouse Barriers to treatment: Prefer Tx in [facility] Referrals/Interventions: Dr. Dos Santos & Dr. [...] in the section of Radiation Oncology at [facility] regarding his HN Cancer cancer ONCOLOGIC HISTORY [...] ??? ACHILLES TENDON SURGERY Right 1996 [facility] ??? KNEE ARTHROSCOPY [facility]. [facility] ??? PRO BIOPSY OROPHARYNX N/A 05/24/2017 BIOPSY, OROPHARYNX (WRVU 1.44) performed by Zafar Madera MD at [facility] MAIN OR ??? PRO LARYNGOSCOPY, DIRCT, OP SCOPE, BIOPSY N/A 05/24/2017 LARYNGOSCOPY, MICROSCOPE, WITH BIOPSY (WRVU 3.55) performed by Zafar Madera MD at [facility] MAIN OR ??? QUADRACEPS TENDON REPAIR Right 04/2016 [facility] ??? TONSILLECTOMY Social History Social History ??? Marital status: Spouse name: Briana ??? Number of children: 4 ??? 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 He is to Briana for 40 yrs. 4 children - All live in different states - One [place] Enjoys raising Beef Cattle and doing Civil War and Living History and shoot Black powder/Antique firearms. He enjoys builiding Firearms/Blacksmithing - Charcoal, [place], etc. No family history on file. ROS: [...] TORS. he has been discussed at [facility] tumor board and it wasrecommended that either option is appropriate.These recommendations are in line with NCCN recommendations. We discussed the rationale, logistics (including simulation, planning, and treatment) and efficacy of definitive radiotherapy. We discussed the risks of therapy, including but not limited to short term sequelae (fatigue, skin erythema, mucositis, dysphagia, ageusia, xerostomia, weight loss) and correction sequelae (tissue fibrosis, lymphedema, auto haulaway driver dysphagia potentially requiring a permanent feeding tube, [...] Prophylactic feeding tube: not indicated Referral to Metal Burrer / HEAD OF TALENT MANAGEMENT Dental Issues: to be cleared, instructions given OTHER ISSUES Pulmonary Embolus: continue anticoagulation documented in this encounter Plan of Treatment Upcoming Encounters Date Type Department Care Team (Late st Contact Info) Description 09/18/2024 10:20 AM EST Office [place] [address] Sriram Contreras MD [facility] [place] [address] 10/31/2024 1:30 PM EST Office Visit Hematology/Oncology at [address] [phone] Dmitry Bhatti MD [facility] DR HEMATOLOGY [place] [address] Ellen Mcrae APRN [facility] [place] [address] 10/31/2024 2:00 PM EST Infusion Hematology Oncology at [address] [phone] Scheduled Referrals Name Type Priority Associated Diagnoses Orde r Schedule Referral to Radiation Oncology Outpatient Referral Routine Cancer of base of tongue Ordered: 04/27/2017 documented as of this encounter Visit Diagnoses Diagnosis Carcinoma of base of tongue Malignant neoplasm of base of tongue documented in this encounter Care Teams National Expansion Recruiter Relationship Specialty Start Date End Date Jovon Sifuentes MD [address] [place] [address] PCP - General 09/30/10 09/10/21 documented as of this encounter
--- OUTSIDE RECORDS SUMMARY | 2024-09-01 14:13 | XMS_ITS | Encounter Summary ---
[place] [address] Care Team Providers Care Marine Steward Name Role Phone Jovon Sifuentes MD Primary Care Provider [phone] Reason for Visit * Auth/Cert Specialty Diagnoses [...] Expiration Date Visits Re quested Visits Authorized [id number] 1 1 Encounter Details Date Type Department Care Team (Late st Contact Info) Description 07/13/2017 8:03 AM EDT Anesthesia Event [facility] [place] [address] Jane Quezada MD [facility] [place] [address] Karla Chavarria CRNA [facility] [place] [address] Anesthesia Record Procedure Summary Procedure Name Responsible [...] 17.8 BE -8.5 Hb 15.1 K 4.53 [id number] Lactate 2.9 1611 Quick Note Muscle relaxati [...] 0836; metacarpal vein (top of hand), right; zknt-dxu-wdancc catheter system; 20 gauge, 1 in length; [...] 0850; median vein (underside of arm), left; tzqf-oha-wpwxlz catheter system; 18 gauge; Burchman; removed inadvertently, catheter/device intact; 07/20/17; 0200 07/13/17 0850 by Karla Chavarria CRNA 07/20/17 0200 by Shannon Toribio RN NG/OG Tube 07/13/17; 1600; nasogastric; 12 Fr; right nostril; medication administration; Secured; 07/25/17; 2313 07/13/17 1600 by Emma Browen RN 07/25/17 2313 by Kayley Olivo RN [...] Quezada MD - 07/14/2017 9:[address] [facility] Department of Anesthesiology Post-procedure Note Patient: Jose Anaya [place] Procedure Summary Date Anesthesia Start Anesthesia Stop Room / Location 07/13/17 0803 194 [facility] 2 / [facility] Procedure Diagnosis Surgeon Responsible Provider [...] Anesthesiologist: Giovanni Yanez MD; Jane Quezada MD TICK ERADICATOR: Karla Chavarria CRNA Last (1hr) Vitals: BP Temp Pulse Resp SpO2 Patient Location: PACU/[facility] Level of Consciousness: Sedated (Pharmacologic/Intentional) Pain [...] MD Report given to ICU charge and curtain feller blindstitch. I took over last hour of case, [...] Date ??? ACHILLES TENDON SURGERY Right [address] [facility] ??? KNEE ARTHROSCOPY christelle. [facility] ??? PRO BIOPSY OROPHARYNX N/A 05/24/2017 BIOPSY, OROPHARYNX (WRVU 1.44) performed by Zafar Madera MD at [facility] MAIN OR ??? PRO LARYNGOSCOPY, DIRCT, OP SCOPE, BIOPSY N/A 05/24/2017 LARYNGOSCOPY, MICROSCOPE, WITH BIOPSY (WRVU 3.55) performed by Zafar Madera MD at [facility] MAIN OR ??? QUADRACEPS TENDON REPAIR Right 04/2016 [facility] ??? TONSILLECTOMY Social History Substance [...] 10:20 AM EST Office [place] [address] Sriram Contreras MD [facility] [place] [address] 10/31/2024 1:30 PM EST Office Visit Hematology/Oncology at [address] [phone] Dmitry Bhatti MD [facility] DR [place] [address] Ellen Mcrae APRN [facility] [place] [address] 10/31/2024 2:00 PM EST Infusion Hematology Oncology at [address] [phone] documented as of this encounter [...] EDT documented in this encounter Care Teams Marine Steward Relationship Specialty Start Date End Date Jovon Sifuentes MD [address] [place] [address] PCP - General 09/30/10 09/10/21 documented as of this encounter
--- OUTSIDE RECORDS SUMMARY | 2024-09-01 14:13 | XMS_ITS | Encounter Summary ---
[place] [address] Care Team Providers Care Still Operator Batch Or Continuous Name Role Phone Jovon Sifuentes MD Primary Care Provider Reason for Referral * Diagnostic Test (Routine) - Closed Specialty Diagnoses / Procedures Referred By Contac t Referred To Contact Radiology Diagnoses Cancer of base of tongue Procedures CT Neck Soft Tissue w Contrast (Generic) Sriram Contreras MD [facility] [place] [address] [facility] [place] [address] Referral ID Status Reason Start Date Expiration Date V isits Requested Visits Authorized [id number] Closed Specialty Service Requested 06/17/2017 06/17/2018 1 1 Reason for Visit * Reason Comments Establish Care Here to discuss surg daisy options like TORS for tonsil cancer Encounter Details Date Type Department Care Team (Late st Contact Info) Description 06/17/2017 4:40 PM EDT Office Visit [place] [phone] Sriram Contreras MD [facility] DR [place] [address] Cancer of base of tongue [...] Contreras MD - 06/17/2017 4:40 PM EDT [facility] OTOLARYNGOLOGY HEAD AND NECK TUMOR CLINIC NEW [...] the [employer] and uploaded to the [employer] Founder And Chairman. Findings Nasal cavity normal Nasopharynx normal Oropharynx [...] 10:20 AM EST Office Visit [place] [address] Sriram Contreras MD [facility] [place] [address] 10/31/2024 1:30 PM EST Office Visit Hematology/Oncology at [address] [phone] Dmitry Bhatti MD [facility] DR HEMATOLOGY [place] [address] Ellen Mcrae APRN [facility] [place] [address] 10/31/2024 2:00 PM EST Infusion Hematology Oncology at [address] [phone] documented as of this encounter Procedures Procedure [...] tongue documented in this encounter Care Teams Still Operator Batch Or Continuous Relationship Specialty Start Date End Date Jovon Sifuentes MD [address] [place] [address] PCP - General 09/30/10 09/10/21 documented as of this encounter
--- OUTSIDE RECORDS SUMMARY | 2024-09-01 14:13 | XMS_ITS | Encounter Summary ---
[place] [address] Care Team Providers Care Technical Sourcing Recruiter Name Role Phone Jovon Sifuentes MD Primary Care Provider Reason for Visit * Diagnostic Test (Routine) - Closed Specialty Diagnoses / Procedures Referred By Contac t Referred To Contact Radiology Diagnoses Other acute pulmonary embolism without acute cor pulmonale Carcinoma of base of tongue Procedures PET CT Standard Skull Base to Mid-Thigh Kaiden Dos Santos MD [facility] [place] [address] [place] [address] Referral ID Status Reason Start Date Expiration Date V isits Requested Visits Authorized [id number] Closed Specialty Service Requested 06/10/2017 08/08/2017 2 2 Encounter Details Date Type Department Care Team (Latest Contact Info) Description 06/17/2017 12:03 PM EDT - 06/17/2017 11:59 PM EDT Hospital Encounter [place] [address] Kaiden Dos Santos MD [address] [place] [address] [place] [address] Discharge Disposition: Home Social History Tobacco Use [...] 10:20 AM EST Office [place] [address] Sriram Contreras MD [facility] [place] [address] 10/31/2024 1:30 PM EST Office Visit Hematology/Oncology at [address] [phone] Dmitry Bhatti MD [facility] [place] [address] Ellen Mcrae APRN [facility] [place] [address] 10/31/2024 2:00 PM EST Infusion Hematology Oncology at [address] [phone] documented as of this encounter Procedures Procedure [...] Thank you for referring this patient to [facility]. I have personally reviewed the image(s) and the residents interpretation and agree with the findings, Lizy Padgett at 06/17/2017 3:54 PM Narrative 06/17/2017 3:54 PM EDT EXAMINATION: PET CT STANDARD SKULL BASE TO MID-THIGH CLINICAL HISTORY: head/neck cancer, initial staging exam TECHNIQUE: Following IV injection of 10-lclpnh-6-deoxyglucose (FDG) a standard uptake of approximately 60 [...] staging exam TECHNIQUE: Following IV injection of 95-bsojrv-1-deoxyglucose (FDG) astandard uptake of approximately 60 minutes, [...] Thank you for referring this patient to [facility]. I have personally reviewed the image(s) and the residents interpretationand agree with the findings, Lizy Lorin at 06/17/2017 3:54 PM Kaiden Dos Santos MD IMG PET ORDERABLES documented in this encounter Visit Diagnoses Not on filedocumented in this encounter Care Teams Technical Sourcing Recruiter Relationship Specialty Start Date End Date Jovon Sifuentes MD [address] [place] [address] PCP - General 09/30/10 09/10/21 documented as of this encounter
--- OUTSIDE RECORDS SUMMARY | 2024-09-01 14:13 | XMS_ITS | Encounter Summary ---
[place] [address] Care Team Providers Care Warehouser Name Role Phone Jovon Sifuentes MD Primary Care Provider [phone] Reason for Referral * Diagnostic Test (Routine) - Closed Specialty Diagnoses / Procedures Referred By Contac t Referred To Contact Radiology Diagnoses Other acute pulmonary embolism without acute cor pulmonale Carcinoma of base of tongue Procedures PET CT Standard Skull Base to Mid-Thigh Kaiden Dos Santos MD [facility] [place] [address] [place] [address] Referral ID Status Reason Start Date Expiration Date V isits Requested Visits Authorized [id number] Closed Specialty Service Requested 06/10/2017 08/08/2017 2 2 Reason for Visit * Diagnostic Test (Routine) - Closed Specialty Diagnoses / Procedures Referred By Contac t Referred To Contact Radiology Diagnoses Other acute pulmonary embolism without acute cor pulmonale Carcinoma of base of tongue Procedures PET CT Standard Skull Base to Mid-Thigh Kaiden Dos Santos MD [facility] [place] [address] [place] [address] Referral ID Status Reason Start Date Expiration Date V isits Requested Visits Authorized [id number] Closed Specialty Service Requested 06/10/2017 08/08/2017 2 2 Encounter Details Date Type Department Care Team (Latest Contact Info) Description 06/17/2017 12:02 PM EDT Hospital Encounter [place] [address] Kaiden Dos Santos MD [address] [place] [address] [place] [address] Other acute pulmonary embolism without acute cor [...] 10:20 AM EST Office Visit [place] [address] Sriram Contreras MD [facility] [place] [address] 10/31/2024 1:30 PM EST Office Visit Hematology/Oncology at [address] [phone] Dmitry Bhatti MD [facility] DR HEMATOLOG[place] [address] Ellen Mcrae APRN [facility] [place] [address] 10/31/2024 2:00 PM EST Infusion Hematology Oncology at [address] [phone] documented as of this encounter Procedures Procedure [...] staging exam TECHNIQUE: Following IV injection of 83-okwgxq-1-deoxyglucose (FDG) a standard uptake of approximately 60 [...] staging exam TECHNIQUE: Following IV injection of 77-uawcir-0-deoxyglucose (FDG) astandard uptake of approximately 60 minutes, [...] Glucose, POC 82 65 - 199 mg/dL [facility] Comment: Supplemental ranges: <140 mg/dL before meals <180 mg/dL all other times of the day Blood specimen (specimen) 06/17/2017 12:14 PM EDT 06/17/2017 12:14 PM EDT Kaiden Dos Santos MD POINT OF CARE TEST O RDERABLES [facility] [place] [address] documented in this encounter Visit Diagnoses Diagnosis [...] Arm documented in this encounter Care Teams Warehouser Relationship Specialty Start Date End Date Jovon Sifuentes MD [address] [place] [address] PCP - General 09/30/10 09/10/21 documented as of this encounter
--- OUTSIDE RECORDS SUMMARY | 2024-09-01 14:14 | XMS_ITS | Encounter Summary ---
Author Organization [facility] Address [address] [place] [address] Care Team Providers Care Consultant Nurse Name Role Phone Jovon Sifuentes MD Primary Care Provider [phone] Encounter Details Date Type Department Care Team (Late st Contact Info) Description 01/02/2008 Results Only [facility] [address] [place] [address] Cecilia Talley MD [address] [place] [id number] Social History Tobacco Use Types Packs/Day Years [...] ? JOSE BEE ? Accession #: ? [id number] ? : ? 1950 (Age: 57) ??M [...] Talley MD PATHOLOGY ORDERABLES Performing Organization Address City/State/RUST Co de Phone Number [facility] [address] [place] [address] documented in this encounter Visit Diagnoses Not on filedocumented in this encounter Care Teams Consultant Nurse Relationship Specialty Start Date End Date Jovon Sifuentes MD [address] [place] [address] PCP - General 09/05/09 documented as of this encounter
--- OUTSIDE RECORDS SUMMARY | 2024-09-01 14:14 | XMS_ITS | Encounter Summary ---
[place] [address] Care Team Providers Care Allergist Immunologist Name Role Phone Jovon Sifuentes MD Primary Care Provider [phone] Reason for Visit * Reason Comments Acrochordon Encounter Details Date Type Department Care Team (Late st Contact Info) Description 02/16/2011 11:30 AM EDT Office Visit Dermatology [address] [facility] [address] [place] [address] Alex Diaz MD [address] [facility] [place] [address] Acrochordons (Primary Dx) Social History Tobacco Use [...] 10:20 AM EST Office [place] [address] Sriram Contreras MD [facility] [place] [address] 10/31/2024 1:30 PM EST Office Visit Hematology/Oncology at [address] [phone] Dmitry Bhatti MD [facility] [place] [address] Ellen Mcrae APRN [facility] [place] [place] [address] 10/31/2024 2:00 PM EST Infusion Hematology Oncology at [address] [phone] documented as of this encounter Visit Diagnoses Diagnosis Acrochordons- Primary Unspecified hypertrophic and atrophic condition of skin documented in this encounter Care Teams Allergist Immunologist Relationship Specialty Start Date End Date Jovon Sifuentes MD [address] [place] [address] PCP - General 09/30/10 09/10/21 documented as of this encounter
--- OUTSIDE RECORDS SUMMARY | 2024-09-01 14:14 | XMS_ITS | Encounter Summary ---
Author Organization [facility] [place] [address] Care Team Providers Care Frame Stripper And Crusher Name Role Phone Jovon Sifuentes MD Primary Care Provider [phone] Encounter Details Date Type Department Care Team (Late st Contact Info) Description 05/03/2017 Telephone Otol[place]ology [place] [phone] Rosa Buitrago Social History Tobacco Use Types [...] 10:20 AM EST Office Visit Ot[place] [phone] Sriram Contreras MD [facility] [place] [address] 10/31/2024 1:30 PM EST Office Visit Hematology/Oncology at [address] [address] Dmitry Bhatti MD [facility] DR [place] [address] Ellen Mcrae APRN [facility] [place] [address] 10/31/2024 2:00 PM EST Infusion Hematology Oncology at [address] [phone] documented as of this encounter Visit Diagnoses Not on filedocumented in this encounter Care Teams Frame Stripper And Crusher Relationship Specialty Start Date End Date Jovon Sifuentes MD [address] [place] [address] PCP - General 09/30/10 09/10/21 documented as of this encounter
--- OUTSIDE RECORDS SUMMARY | 2024-09-01 14:14 | XMS_ITS | Encounter Summary ---
Author Organization [facility] Address [address] [place] [address] Care Team Providers Care Senior Premium Auditor Name Role Phone Jovon Sifuentes MD Primary Care Provider [phone] Encounter Details Date Type Department Care Team (Late st Contact Info) Description 05/04/2023 Lab Requisition [facility] Pathology & Laboratory Medicine - [address] [id number] Outr Resulting Lab, Provider Social History Tobacco [...] PSA 84.1(H) <=6.5 ng/mL 05/04/2023 19:05 EDT [facility] Blood VENOUS BLOOD / Unknown 05/03/2023 14:15 EDT 05/04/2023 17:19 EDT Narrative [facility] - 05/04/2023 19:05 EDT NOTE: Serum PSA concentration should not be interpreted as absolute evidence for the presence or absence of malignant disease. Assayed on Siemens [employer] Weekend[employer] XPT using chemiluminescent technology.??Values obtained by using different assay methods cannot be used interchangeably. Provider Outr Resulting Lab CHEMISTRY & BLOOD GAS ORDERABLES [facility] [address] [place] [address] documented in this encounter Visit Diagnoses Not on filedocumented in this encounter Care Teams Senior Premium Auditor Relationship Specialty Start Date End Date Jovon Sifuentes MD [address] [place] [address] PCP - General 09/05/09 documented as of this encounter
--- OUTSIDE RECORDS SUMMARY | 2024-09-01 14:14 | XMS_ITS | Encounter Summary ---
Author Organization [facility] [place] [address] Care Team Providers Care Handle Bar Assembler Name Role Phone Jovon Sifuentes MD Primary Care Provider Encounter Details Date Type Department Care Team (Late st Contact Info) Description 04/09/2017 Telephone [place] [phone] Vane Cardona Social History Tobacco Use Types [...] 10:20 AM EST Office [place] [phone] Sriram Contreras MD [facility] [place] [address] 10/31/2024 1:30 PM EST Office Visit Hematology/Oncology at [address] [address] Dmitry Bhatti MD [facility] DR [place] [address] Ellen Mcrae APRN [facility] [place] [address] 10/31/2024 2:00 PM EST Infusion Hematology Oncology at [address] [phone] documented as of this encounter Visit Diagnoses Not on filedocumented in this encounter Care Teams Handle Bar Assembler Relationship Specialty Start Date End Date Jovon Sifuentes MD [address] [place] [address] PCP - General 09/30/10 09/10/21 documented as of this encounter
--- OUTSIDE RECORDS SUMMARY | 2024-09-01 14:14 | XMS_ITS | Encounter Summary ---
Author Organization [facility] [place] [address] Care Team Providers Care Supervisor Wrapping Room Name Role Phone Jovon Sifuentes MD Primary Care Provider Encounter Details Date Type Department Care Team (Late Contact Info) Description 02/03/2011 3:30 PM EDT Office Visit Dermatology [address] [place] [address] Alex Diaz MD [address] [facility] [place] [address] Social History Tobacco Use Types Packs/Day Years [...] Office Visit [place] [address] Sriram Contreras MD [facility] [place] [address] 10/31/2024 1:30 PM EST Office Visit Hematology/Oncology at [address] [phone] Dmitry Bhatti MD [facility] DR HEMATOLOGY [place] [address] Ellen Mcrae APRN [facility] [place] [address] 10/31/2024 2:00 PM EST Infusion Hematology Oncology at [address] [phone] documented as of this encounter Visit Diagnoses Not on filedocumented in this encounter Care Teams Supervisor Wrapping Room Relationship Specialty Start Date End Date Jovon Sifuentes MD [address] [place] [address] PCP - General 09/30/10 09/10/21 documented as of this encounter
--- OUTSIDE RECORDS SUMMARY | 2024-09-01 14:14 | XMS_ITS | Encounter Summary ---
Author Organization [facility] [place] [address] Care Team Providers Care Inspector Fuel Hose Name Role Phone Jovon Sifuentes MD Primary Care Provider [phone] Encounter Details Date Type Department Care Team (Latest Contact Info) Description 03/18/2017 - 03/18/2017 11:59 PM EDT Hospital Encounter Radiology Library at [facility] [place] [address] Jovon Sifuentes MD [address] [place] [address] Pain Discharge Disposition: Home Social History Tobacco [...] AM EST Office Visit Otolaryngology at [facility] [place] [phone] Sriram Contreras MD [facility] [place] [place] [address] 10/31/2024 1:30 PM EST Office Visit Hematology/Oncology at [address] [phone] Dmitry Bhatti MD [facility] DR HEMATOLOGY [place] [address] Ellen Mcrae APRN [facility] [place] [address] 10/31/2024 2:00 PM EST Infusion Hematology Oncology at [address] [phone] documented as of this encounter Procedures Procedure Name Priority Date/Time Associated Diagnosis Comments FILM LIBRARY STORAGE ONLY CT HEAD AND SPINE Routine 03/18/2017 12:00 AM EDT Pain documented in this encounter Results * Film Library- Storage Only CT Head And Spine (03/18/2017 12:00 AM EDT) Narrative [facility] - 03/18/2017 3:03 PM EDT This exam is for storage only and is auto-finalizing. Jovon Sifuentes MD [facility] FILM LIBRARY ORD ERABLES [place], [place] documented in this encounter Visit Diagnoses Diagnosis Pain Generalized pain documented in this encounter Care Teams Inspector Fuel Hose Relationship Specialty Start Date End Date Jovon Sifuentes MD [address] [place] [address] PCP - General 09/30/10 09/10/21 documented as of this encounter
--- OUTSIDE RECORDS SUMMARY | 2024-09-01 14:14 | XMS_ITS | Encounter Summary ---
Author Organization [facility] Address [address] [place] [address] Care Team Providers Care Atm Technician Name Role Phone Jovon Sifuentes MD Primary Care Provider [phone] Encounter Details Date Type Department Care Team (Late st Contact Info) Description 07/31/2020 Lab Requisition [facility] Pathology & Laboratory Medicine - [address] [address] Outr Resulting Lab, Provider Social History Tobacco [...] 0.0 - 6.5 ng/mL 07/31/2020 19:55 EDT [facility] Blood VENOUS BLOOD / Unknown 07/30/2020 14:40 EDT 07/31/2020 17:10 EDT Narrative [facility] - 07/31/2020 19:55 EDT NOTE: Serum PSA concentration should not be interpreted as absolute evidence for the presence or absence of malignant disease. Assayed on Siemens [employer]VIA [employer] XPT using chemiluminescent technology.??Values obtained by using different assay methods cannot be used interchangeably. Provider Outr Resulting Lab CHEMISTRY & BLOOD GAS ORDERABLES [facility] [address] [place] [address] documented in this encounter Visit Diagnoses Not on filedocumented in this encounter Care Teams Atm Technician Relationship Specialty Start Date End Date Jovon Sifuentes MD [address] [place] [address] PCP - General 09/05/09 documented as of this encounter
--- OUTSIDE RECORDS SUMMARY | 2024-09-01 14:14 | XMS_ITS | Clinical Summary ---
Author Organization [facility] Address [address] [place] [address] Care Team Providers Care Cutter Grind Tool Technician Name Role Phone Jovon Sifuentes MD Primary Care Provider [phone] Social History Tobacco Use Types Packs/Day Years [...] COVID-19 Vaccine ( season) 2023 Care Teams Cutter Grind Tool Technician Relationship Specialty Start Date End Date Jovon Sifuentes MD [address] [place] [address] [facility] - General 09/05/09
--- OUTSIDE RECORDS SUMMARY | 2024-09-01 14:14 | XMS_ITS | Encounter Summary ---
Author Organization [facility] Address [address] [place] [address] Care Team Providers Care Hyperion Administrator Name Role Phone Jovon Sifuentes MD Primary Care Provider [phone] Encounter Details Date Type Department Care Team (Late st Contact Info) Description 05/14/2023 Lab Requisition [facility] Pathology & Laboratory Medicine - [address] [address] Dinesh Phelps MD [address] [place] [address] [place] [address] Encounter for other general examination [...] management options, if applicable. 05/18/2023 11:25 EDT [facility] Final Diagnosis A. PROSTATE, [...] adenocarcinoma, involving 1 of 1 core. - Momence score 4 + 3 = 7 (grade group 3), 70% Marko pattern 4, tumor extent 6 mm (40% of core). - Cribriform Momence pattern 4 is present. I. PROSTATE, LEFT MID LATERAL, NEEDLE CORE BIOPSY: - Prostatic adenocarcinoma, involving 1 of 1 core. - Momence score 3 + 5 = 8 (grade group 4), tumor extent 4 mm (30% of core). J. PROSTATE, LEFT MID MEDIAL, NEEDLE CORE BIOPSY: - Prostatic adenocarcinoma, involving 1 of 1 core. - Momence score 4 + 5 = 9 (grade group 5), tumor extent 2 mm (15% of core). K. PROSTATE, LEFT APEX LATERAL, NEEDLE CORE BIOPSY: - Benign prostatic tissue. L. PROSTATE, LEFT APEX MEDIAL, NEEDLE CORE BIOPSY: - Prostatic adenocarcinoma, involving 1 of 1 core. - Momence score 5 + 4 = 9 (grade group 5), tumor extent 2 mm (20% of core). 05/18/2023 11:25 [facility] Diagnosis Comment 05/18/2023 11:25 [facility] Attestation There was significant resident/fellow involvement in the diagnostic evaluation of this case. By the signature below, the attending physician certifies that they have personally conducted a gross and/or microscopic examination of the described specimens and rendered or confirmed the above diagnosis. 05/18/2023 11:25 [facility] at [address] Clinical History Not listed 05/18/2023 11:25 [facility] Gross Description A. Received [...] Arely Albright 05/14/2023 9:33 05/18/2023 11:25 EDT [facility] Resident/Yan w: Katherine Murillo MD 05/18/2023 11:25 EDT [facility] Performing Lab [facility] 05/18/2023 11:25 EDT [facility] Scanned Images 05/18/2023 11:25 T [facility] Tissue ENTIRE APEX OF [...] EDT Dinesh Phelps MD PATHOLOGY ORDERAB LES [facility] [address] [place] [address] documented in this encounter Visit Diagnoses Diagnosis Encounter for other general examination documented in this encounter Care Teams Hyperion Administrator Relationship Specialty Start Date End Date Jovon Sifuentes MD [address] [place] [address] PCP - General 09/05/09 documented as of this encounter
--- OUTSIDE RECORDS SUMMARY | 2024-09-01 14:14 | XMS_ITS | Encounter Summary ---
[place] [address] Care Team Providers Care Shipfitter Name Role Phone Jovon Sifuentes MD Primary Care Provider Reason for Referral * Diagnostic Test (Routine) - Closed Specialty Diagnoses / Procedures Referred By Contac t Referred To Contact Cardiology Diagnoses Atrial fibrillation, unspecified type Cardiomegaly Pulmonary infarction Procedures Echocardiogram Transthoracic(Leb) Jovon Sifuentes MD [address] [place] [address] [facility] [place] [address] Referral ID Status Reason Start Date Expiration Date V isits Requested Visits Authorized [id number] Closed Specialty Service Requested 04/07/2017 04/07/2018 1 1 Reason for Visit * Diagnostic Test (Routine) - Closed Specialty Diagnoses / Procedures Referred By Contac t Referred To Contact Cardiology Diagnoses Atrial fibrillation, unspecified type Cardiomegaly Pulmonary infarction Procedures Echocardiogram Transthoracic(Leb) Jovon Sifuentes MD [address] [place] [address] [facility] [place] [address] Referral ID Status Reason Start Date Expiration Date V isits Requested Visits Authorized [id number] Closed Specialty Service Requested 04/07/2017 04/07/2018 1 1 Encounter Details Date Type Department Care Team (Latest Contact Info) Description 04/30/2017 8:23 AM EDT - 04/30/2017 11:59 PM EDT Hospital Encounter Non-Invasive [place] [address] Atrial fibrillation, unspecified type; Cardiomegaly; Pulmonary infarction [...] 10:20 AM EST Office [place] [address] Sriram Contreras MD [facility] [place] [address] 10/31/2024 1:30 PM EST Office Visit Hematology/Oncology at [address] [phone] Dmitry Bhatti MD [facility] [place] [address] Ellen Mcrae, GILLIAN [facility] [place] [address] 10/31/2024 2:00 PM EST Infusion Hematology Oncology at [address] [phone] documented as of this encounter Procedures Procedure Name Priority Date/Time Associated Diagnosis Comments ECHO COMPLETE W CONTRAST Routine 04/30/2017 9:26 AM EDT Atrial fibrillation, unspecified type Cardiomegaly Pulmonary infarction documented in this encounter Results * ECHO COMPLETE W CONTRAST (04/30/2017 9:26 AM EDT) EF 60 HEARTCherry Bugs SYSTEM Anatomical Region Laterality Modality Other 04/30/2017 Narrative 04/30/2017 9:43 AM EDT Procedure: ?Transthoracic Echocardiogram Patient: ?EUSEBIA Anaya ?? (Age): 1950(66y) Med Rec#: ? [id number] ?Sex: ?M ? Site Loc: ? [facility] ?Ht / Wt: ??193(cm)/139(kg) Pt. Loc: ?Echo Lab ?BSA: ?2.66 Study Date: ?? 04/30/2017 ?Pt. Type: Outpatient Tape: ? Referring: Jovon Sifuentes Referring: Kashmir Lr ([id number]) Reading: Russ Weber ([id number]) Campaign Analyst: Marysol Zavala BA, [facility] Diagnosis: *ICD-10-PCS Unspecified atrial fibrillation (I48.91) *ICD-10-PCS Cardiomegaly (I51.7) CPT Codes: *Lizbeth ([id number]) Rhythm: ? A-Fib BP: ? 121/71 SUMMARY: [...] ? Pulmonic Valve/Qp:Qs ?Value ?Units (Range) ? [place] end-diastolic Vma0.8 ?m/sec ? Measurement Trending Name [...] ? Mid-Inferior ?Normal ? Mid-Inferoseptal ?Normal ? Faxon-Septal ? Normal ? Faxon-Anterior ? Normal ? Faxon-Lateral ?Normal ? Faxon-Inferior ? Normal ? Faxon-Tip ?Normal ? This report has been electronically signed by: Russ Weber MD ? 04/30/2017 09:43:10 Images reviewed and interpretation verified [facility] Cardiac Ultrasound [facility] Procedure Note Russ Weber MD - 04/30/2017 Procedure: Transthoracic Echocardiogram Patient: EUSEBIA Anaya (Age): 1950(66y) Med Rec#: [id number] Sex: M Site Loc: [facility] Ht / Wt: 193(cm)/139(kg) Pt. Loc: Echo Lab BSA: 2.66 Study Date: 04/30/2017 Pt. Type: Outpatient Tape: Referring: Jovon Sifuentes Referring: Kashmir Lr ([id number]) Reading: Russ Weber ([id number]) Campaign Analyst: Marysol Zavala BA, [facility] Diagnosis: *ICD-10-PCS Unspecified atrial fibrillation (I48.91) *ICD-10-PCS Cardiomegaly (I51.7) CPT Codes: *Optison ([id number]) Rhythm: A-Fib BP: 121/71 SUMMARY: 1. The [...] 2 cm Pulmonic Valve/Qp:Qs Value Units (Range) AZ end-diastolic Vma0.8 m/sec Measurement Trending Name 04/30/2017 LV EDV BP 161 LVIDd (2D) 4.58 LV ESV BP 64 LA ESV BP (MOD) 120 LVIDs (2D) 3.23 Wall Motion: Segment Name Rest Base-Anteroseptal Normal Base-Anterior Normal Base-Anterolateral Normal Base-Posterolateral Normal Base-Inferior Normal Base-Inferoseptal Normal Mid-Anteroseptal Normal Mid-Anterior Normal Mid-Anterolateral Normal Mid-Posterolateral Normal Mid-Inferior Normal Mid-Inferoseptal Normal Faxon-Septal Normal Faxon-Anterior Normal Faxon-Lateral Normal Faxon-Inferior Normal Faxon-Tip Normal This report has been electronically signed by: Russ Weber MD 04/30/2017 09:43:10 Images reviewed and interpretation verified [facility]iac [facility]ound [facility] Jovon Sifuentes MD ECHO ORDERABLES documented in this encounter Visit Diagnoses Diagnosis Atrial fibrillation, unspecified type Cardiomegaly Pulmonary infarction Other pulmonary embolism and infarction documented in this encounter Care Teams Shipfitter Relationship Specialty Start Date End Date Jovon Sifuentes MD [address] [place] [address] PCP - General 09/30/10 09/10/21 documented as of this encounter
--- OUTSIDE RECORDS SUMMARY | 2024-09-01 14:14 | XMS_ITS | Encounter Summary ---
[place] [address] Care Team Providers Care Phlebotomist Supervisor/Instructor Name Role Phone Jovon Sifuentes MD Primary Care Provider [phone] Reason for Referral * Consultation (Urgent) - Closed Specialty Diagnoses / Procedures Referred By Huma valladares Referred To Contact Hematology and Oncology Diagnoses Throat mass Zafar Madera MD [facility] [place] [address] [facility] Hem Onc [address] [place] [address] Referral ID Status Reason Start Date Expiration Date V isits Requested Visits Authorized [id number] Closed Consult, Test & Treat 04/07/2017 04/07/2018 [...] smoking and dysphagia Celso Elkins, DO [address] [place] [address] Zafar Madera MD [facility] [place] [address] Referral ID Status Reason Start Date Expiration Date Visits Re quested Visits Authorized [id number] Closed 03/17/2017 03/17/2018 1 1 Encounter Details Date Type Department Care Team (Late st Contact Info) Description 04/06/2017 3:00 PM EDT Office [place] [address] Zafar Madera MD [facility] [place] [address] Throat mass Social History Tobacco Use Types [...] Cheney PA - 04/06/2017 3:00 PM EDT [facility] Otolaryngology - Head and Neck Surgery Hilton Cheney PA-C 04/06/17 10:11 PM [address] [place] [place] [address] Office Patient Name: Jose Bee Date of [...] felt something in his throat for years. [place] worsened in last couple of months. Feels lump on side of throat when swallowing. Sometimes food or pills will get hung up while swallowing. Had difficulty breathing recently, felt related to recent pneumonia and pulmonary embolism diagnoses. Treated with antibiotics and Eliquis respectively. Increased throat clearing. Occasional bilateral ear pain and itching, right > left. Went to ENT in [facility], ordered CT:right throat mass. Denies fevers, [...] of 30 drinks/week x 15 years. Occupation: [employer]. Lives in [place] [facility] [address] Social History Social History ??? Marital status: [...] and discuss/plan the biopsyprocedure. Hilton Cheney PA-C [place], [place] [address] Office @Today@ 10:11 PM * Zafar Madera [...] 10:20 AM EST Office [place] [address] Sriram Contreras MD [facility] [place] [address] 10/31/2024 1:30 PM EST Office Visit Hematology/Oncology at [address] [phone] Dmitry Bhatti MD [facility] DR HEMATOLOGY [place] [address] Ellen Mcrae APRN [facility] [place] [address] 10/31/2024 2:00 PM EST Infusion Hematology Oncology at [address] [phone] Scheduled Referrals Name Type Priority Associated Diagnoses Order Schedule Referral to Hematology and Oncology Outpatient Referral Routine Throat mass Ordered: 04/07/2017 documented as of this encounter Visit Diagnoses Diagnosis Throat mass Swelling, mass, or lump in head and neck documented in this encounter Care Teams Phlebotomist Supervisor/Instructor Relationship Specialty Start Date End Date Jovon Sifuentes MD [address] [place] [address] PCP - General 09/30/10 09/10/21 documented as of this encounter
--- OUTSIDE RECORDS SUMMARY | 2024-09-01 14:14 | XMS_ITS | Encounter Summary ---
Author Organization [facility] Address [address] [place] [address] Care Team Providers Care Supervisor Front Name Role Phone Jovon Sifuentes MD Primary Care Provider [phone] Encounter Details Date Type Department Care Team (Late st Contact Info) Description 05/18/2020 Lab Requisition [facility] Pathology & Laboratory Medicine - [address] [address] Outr Resulting Lab, Provider Social History Tobacco [...] in accordance with CLIA regulations, [employer] (CAP) guidelines (Jan 25, 2020), and FDA guidance (Jan 06, 2020). This test is only for use under the Food and Drug Administration's Emergency Use Authorization. Swab ENTIRE NASOPHARYNX / Unknown 05/18/2020 11:03 EDT 05/18/2020 22:43 EDT Provider Outr Resulting Lab MICROBIOLOGY - GENERAL ORDERABLES [facility] [place], [place] * COVID-19 TESTING (05/18/2020 11:03 EDT) COVID-19 rt-PCR Result NEGATIVE Negative 05/20/2020 14:40 EDT [facility] Comment: 2019-novel Coronavirus (2019-nCoV) not detected [...] in accordance with CLIA regulations, [employer] (CAP) guidelines (Jan 25, 2020), and FDA guidance (Jan 06, 2020). This test is only for use under the Food and Drug Administration's Emergency Use Authorization. Performing Lab [facility] Er 05/20/2020 14:40 EDT [facility] Swab 05/18/2020 11:0 3 EDT 05/18/2020 22:43 EDT Provider Outr Resulting Lab MICROBIOLOGY - GENERAL ORDERABLES [facility] [address] [place] [address] [facility] [place], [place] documented in this encounter Visit Diagnoses Not on filedocumented in this encounter Additional Health Concerns Infection Onset Date Last Indicated Resolved Time R/O COVID-19 05/18/2020 05/18/2020 05/23/2020 22:1 6 EDT documented as of this encounter Care Teams Supervisor Front Relationship Specialty Start Date End Date Jovon Sifuentes MD [address] [place] [address] PCP - General 09/05/09 documented as of this encounter
--- OUTSIDE RECORDS SUMMARY | 2024-09-01 14:14 | XMS_ITS | Encounter Summary ---
Author Organization [facility] [place] [address] Care Team Providers Care Hot Oiler Name Role Phone Jovon Sifuentes MD Primary Care Provider Encounter Details Date Type Department Care Team (Latest Contact Info) Description 03/26/2017 - 03/26/2017 11:59 PM EDT Hospital Encounter Radiology Library at [facility] [place] [address] Zafar Madera MD [facility] [place] [address] Pain Discharge Disposition: Home Social History Tobacco [...] AM EST Office Visit Otolaryngology at [facility] [place] [address] Sriram Contreras MD [facility] [address] 10/31/2024 1:30 PM EST Office Visit Hematology/Oncology at [address] [phone] Dmitry Bhatti MD [facility] [place] [address] Ellen Mcrae APRN [facility] [place] [address] 10/31/2024 2:00 PM EST Infusion Hematology Oncology at [address] [phone] documented as of this encounter Procedures Procedure Name Priority Date/Time Associated Diagnosis Comments FILM LIBRARY STORAGE ONLY CT ABDOMEN AND PELVIS Routine 03/26/2017 12:00 AM EDT Pain documented in this encounter Results * Film Library- Storage Only CT Abdomen & Pelvis (03/26/2017 12:00 AM EDT) Narrative [facility] - 04/15/2017 11:54 AM EDT This exam is for storage only and is auto-finalizing. Zafar Madera MD IMG FILM LIBRARY OR DERABLES Performing Organization Address City/State/[facility] Co de Phone Number [place], [place] documented in this encounter Visit Diagnoses Diagnosis Pain Generalized pain documented in this encounter Care Teams Hot Oiler Relationship Specialty Start Date End Date Jovon Sifuentes MD [address] [place] [address] PCP - General 09/30/10 09/10/21 documented as of this encounter
--- OUTSIDE RECORDS SUMMARY | 2024-09-01 14:14 | XMS_ITS | Encounter Summary ---
Author Organization [facility] Address [address] [place] [address] Care Team Providers Care Skid Road Worker Name Role Phone Jovon Sifuentes MD Primary Care Provider [phone] Encounter Details Date Type Department Care Team (Late st Contact Info) Description 10/12/2012 Results Only [facility] Laboratory Services - [place] ([facility]) [address] [place], [place] [address] Mario Medel MD [address] [place], [place] [id number] Social History Tobacco Use Types Packs/Day Years [...] ? JOSE BEE ? Accession #: ? [id number] ? : ? 1950 (Age: 61) ??M [...] Deeper sections were reviewed for (B). ??(Dr. Strickland)/[facility] Document reviewed and electronically signed by: [...] EST Mario Medel MD PATHOLOGY ORDERABLES [facility] [address] [place] [address] documented in this encounter Visit Diagnoses Not on filedocumented in this encounter Care Teams Skid Road Worker Relationship Specialty Start Date End Date Jovon Sifuentes MD [address] [place] [address] PCP - General 09/05/09 documented as of this encounter
--- OUTSIDE RECORDS SUMMARY | 2024-09-01 14:14 | XMS_ITS | Encounter Summary ---
Author Organization [facility] Address [address] [place] [address] Care Team Providers Care Clerk Stenographer Name Role Phone Jovon Sifuentes MD Primary Care Provider [phone] Encounter Details Date Type Department Care Team (Late st Contact Info) Description 07/21/2006 Results Only [facility] [address] [place] [address] Mario Medel MD [address] [place] [address] Social History Tobacco Use Types [...] ? JOSE BEE ? Accession #: ? [id number] ? : ? 1950 (Age: 55) ??M [...] submitted in toto as (B). Received in [facility]'s fixative labelled [place] and rectosigmoid polyp are two casas-pink polypoid portions of soft tissue averaging 0.2 x 0.2 x 0.1 cm, submitted in toto as (C). ??(Denzel Aldridge)/[facility] End of Report DANNIE [facility] 07/21/2006 07/22/2006 10: 30 EDT Mario Medel MD PATHOLOGY ORDERABLES [facility] [address] [place] [address] documented in this encounter Visit Diagnoses Not on filedocumented in this encounter Care Teams Clerk Stenographer Relationship Specialty Start Date End Date Jovon Sifuentes MD [address] [place] [address] PCP - General 09/05/09 documented as of this encounter
--- OUTSIDE RECORDS SUMMARY | 2024-09-01 14:14 | XMS_ITS | Encounter Summary ---
Author Organization [facility] Address [address] [place] [address] Care Team Providers Care Director Information Name Role Phone Jovon Sifuentes MD Primary Care Provider [phone] Encounter Details Date Type Department Care Team (Late st Contact Info) Description 09/25/2009 Orders Only [address] [address] Mario Medel MD [address] [place], [place] [id number] Social History Tobacco Use Types Packs/Day Years [...] ? JOSE BEE ? Accession #: ? [id number] ? : ? 1950 (Age: 58) ??M [...] adenoma ? Gross Description: ? Received in [facility]'s fixative labelled Jose Bee and #1 ? ascending colon polyp are three biopsies which vary in size from 0.1 cm in ? diameter up to 0.3 x 0.2 x 0.2 cm. ??The specimens are submitted intact as (A). ? Received in [facility]'s fixative labelled Jose Bee and #2 ? transverse colon polyp is a 0.2 x 0.2 x 0.2 cm biopsy. ??The specimen is ? submitted intact as (B). ? Received in [facility]'s fixative labelled Jose Bee and #3 ? [...] Medel MD PATHOLOGY ORDERABLES Performing Organization Address City/State/[facility] Co de Phone Number [facility] [address] [place] [address] documented in this encounter Visit Diagnoses Not on filedocumented in this encounter Care Teams Director Information Relationship Specialty Start Date End Date Jovon Sifuentes MD [address] [place] [address] PCP - General 09/05/09 documented as of this encounter
--- OUTSIDE RECORDS SUMMARY | 2024-09-01 14:14 | XMS_ITS | Encounter Summary ---
Author Organization [facility] [place] [address] Care Team Providers Care Regional Flatbed Truck Driver Name Role Phone Jovon Sifuentes MD Primary Care Provider [phone] Encounter Details Date Type Department Care Team (Latest Contact Info) Description 03/29/2017 - 03/29/2017 11:59 PM EDT Hospital Encounter Radiology Library [place] [address] Zafar Madera MD [facility] [place] [address] Pain Discharge Disposition: Home Social History Tobacco [...] 10:20 AM EST Office Visit [facility]ol[facility] at [facility] [place] [address] Sriram Contreras MD [facility] [place] [address] 10/31/2024 1:30 PM EST Office Visit Hematology/Oncology at [address] [phone] Dmitry Bhatti MD [facility] [place] [address] Ellen Mcrae APRN [facility] [address] 10/31/2024 2:00 PM EST Infusion Hematology Oncology at [address] [phone] documented as of this encounter Procedures Procedure Name Priority Date/Time Associated Diagnosis Comments FILM LIBRARY STORAGE ONLY CT CHEST Routine 03/29/2017 12:00 AM EDT Pain documented in this encounter Results * Film Library- Storage Only CT Chest (03/29/2017 12:00 AM EDT) Narrative [facility] - 04/15/2017 11:52 AM EDT This exam is for storage only and is auto-finalizing. Zafar Madera MD IMG FILM LIBRARY OR DERABLES Performing Organization Address City/State/[facility] Co de Phone Number [place], [place] documented in this encounter Visit Diagnoses Diagnosis Pain Generalized pain documented in this encounter Care Teams Regional Flatbed Truck Driver Relationship Specialty Start Date End Date Jovon Sifuentes MD [address] [place] [address] PCP - General 09/30/10 09/10/21 documented as of this encounter
--- OUTSIDE RECORDS SUMMARY | 2024-09-01 14:14 | XMS_ITS | Encounter Summary ---
Author Organization [facility] Address [address] [place] [address] Care Team Providers Care Title Specialist Name Role Phone Jovon Sifuentes MD Primary Care Provider [phone] Encounter Details Date Type Department Care Team (Late st Contact Info) Description 10/16/2020 Lab Requisition [facility] Pathology & Laboratory Medicine - [address] [address] Outr Resulting Lab, Provider Social History Tobacco [...] in accordance with CLIA regulations, [employer] (CAP) guidelines (Jan 25, 2020), and FDA guidance (Jan 06, 2020). This test is only for use under the Food and Drug Administration's Emergency Use Authorization. Swab ENTIRE NASOPHARYNX / Unknown 10/15/2020 13:00 EST 10/16/2020 16:13 EST Provider Outr Resulting Lab MICROBIOLOGY - GENERAL ORDERABLES [facility] [place], [place] * COVID-19 TESTING (10/15/2020 13:00 EST) COVID-19 rt-PCR Result NEGATIVE Negative 10/18/2020 15:51 EST [facility] Comment: 2019-novel Coronavirus (2019-nCoV) not [...] in accordance with CLIA regulations, [employer] (CAP) guidelines (Jan 25, 2020), and FDA guidance (Jan 06, 2020). This test is only for use under the Food and Drug Administration's Emergency Use Authorization. Performing Lab [facility] [place] 10/18/2020 15:51 EST [facility] Swab 10/15/2020 13:0 0 EST 10/16/2020 16:13 EST Provider Outr Resulting Lab MICROBIOLOGY - GENERAL ORDERABLES [facility] [address] [place] [address] [facility] [place], [place] documented in this encounter Visit Diagnoses Not on filedocumented in this encounter Care Teams Title Specialist Relationship Specialty Start Date End Date Jovon Sifuentes MD [address] [place] [address] PCP - General 09/05/09 documented as of this encounter
--- OUTSIDE RECORDS SUMMARY | 2024-09-01 14:14 | XMS_ITS | Encounter Summary ---
Author Organization [facility] Address [address] [place] [address] Care Team Providers Care Bilingual Call Center Representative Name Role Phone Jovon Sifuentes MD Primary Care Provider [phone] Encounter Details Date Type Department Care Team (Late st Contact Info) Description 10/08/2020 Lab Requisition [facility] Pathology & Laboratory Medicine - [address] [address] Outr Resulting Lab, Provider Social History Tobacco [...] in accordance with CLIA regulations, [employer] (CAP) guidelines (Jan 25, 2020), and FDA guidance (Jan 06, 2020). This test is only for use under the Food and Drug Administration's Emergency Use Authorization. Swab ENTIRE NASOPHARYNX / Unknown 10/08/2020 10:12 EST 10/08/2020 16:36 EST Provider Outr Resulting Lab MICROBIOLOGY - GENERAL ORDERABLES [facility] [place], [place] * COVID-19 TESTING (10/08/2020 10:12 EST) COVID-19 rt-PCR Result NEGATIVE Negative 10/10/2020 10:28 EST [facility] Comment: 2019-novel Coronavirus (2019-nCoV) not [...] in accordance with CLIA regulations, [employer] (CAP) guidelines (Jan 25, 2020), and FDA guidance (Jan 06, 2020). This test is only for use under the Food and Drug Administration's Emergency Use Authorization. Performing Lab [facility] [place] 10/10/2020 10:28 EST [facility] Swab 10/08/2020 10:1 2 EST 10/08/2020 16:36 EST Provider Outr Resulting Lab MICROBIOLOGY - GENERAL ORDERABLES [facility] [address] [place] [address] [facility] [place], [place] documented in this encounter Visit Diagnoses Not on filedocumented in this encounter Care Teams Bilingual Call Center Representative Relationship Specialty Start Date End Date Jovon Sifuentes MD [address] [place] [address] PCP - General 09/05/09 documented as of this encounter
--- OUTSIDE RECORDS SUMMARY | 2024-09-01 14:14 | XMS_ITS | Encounter Summary ---
[place] [address] Care Team Providers Care Lead Business Analyst Name Role Phone Jovon Sifuentes MD Primary Care Provider Reason for Referral * Consultation (Routine) - Specialty Diagnoses / Procedures Referred By Huma valladares Referred To Contact Hematology and Oncology Diagnoses Cancer of base of tongue Zafar Madera MD [facility] [place] [address] [facility] Hem Onc [address] [place] [address] Referral ID Status Reason Start Date Expiration Date V isits Requested Visits Authorized Consult, Test & Treat 04/27/2017 04/27/2018 1 1 * Consultation (Routine) - Closed Specialty Diagnoses / Procedures Referred By Huma valladares Referred To Contact Radiation Oncology Diagnoses Cancer of base of tongue Zafar Madera MD [facility] [place] [address] [facility] [place] [address] Referral ID Status Reason Start Date Expiration Date V isits Requested Visits Authorized Closed Consult, Test & Treat 04/27/2017 04/27/2018 1 1 Reason for Visit * Reason Comments Follow-up Encounter Details Date Type Department Care Team (Late st Contact Info) Description 04/27/2017 11:40 AM EDT Office [place] [address] Zafar Madera MD [facility] [place] [address] Cancer of base of tongue Social History [...] EST Office [place] [address] Sriram Contreras MD [facility] [address] 10/31/2024 1:30 PM EST Office Visit Hematology/Oncology at [address] [phone] Dmitry Bhatti MD [facility] DR HEMATOLOGY [place] [address] Ellen Mcrae APRN [facility] [place] [address] 10/31/2024 2:00 PM EST Infusion Hematology Oncology at [address] [phone] Scheduled Referrals Name Type Priority Associated Diagnoses [...] tongue documented in this encounter Care Teams Lead Business Analyst Relationship Specialty Start Date End Date Jovon Sifuentes MD [address] [place] [address] PCP - General 09/30/10 09/10/21 documented as of this encounter
--- OUTSIDE RECORDS SUMMARY | 2024-09-01 14:14 | XMS_ITS | Encounter Summary ---
Author Organization [facility] Address [facility] [place] [address] Care Team Providers Care Office Technology Instructor Name Role Phone Jovon Sifuentes MD Primary Care Provider [phone] Reason for Visit * Reason Comments Atrial Fibrillation * Consultation (Routine) - Closed Specialty Diagnoses / Procedures Referred By Contbela t Referred To Contact Cardiology Diagnoses A-fib,enlarged heart, pulmonary embolism Stressenger, GILLIAN Farmer [address] [place] [address] [facility] Cardiology [address] [place] [phone] Referral ID Status Reason Start Date Expiration Date V isits Requested Visits Authorized [id number] Closed Connection Center 04/07/2017 04/07/2018 1 1 Encounter Details Date Type Department Care Team (Late st Contact Info) Description 04/30/2017 10:40 AM EDT Office Visit Cardiology at [address] [address] Kashmir Lr MD [facility] [place] [address] Other acute pulmonary embolism without [...] original note were not included. CARDIOVASCULAR MEDICINE [place] [address] Subjective Identification Jose Bee is a 66 y.o. patient of Jovon Sifuentes MD with the following cardiovascular issues: 1. Atrial fibrillation--- dx in 2014, aspirin changed to apixaban at time of PE 2. Pulmonary embolism--- March 2017. [facility]. [facility]. 3. Cardiomegaly noted on CT in [facility]--- normal echo here April 2017 Comorbidities include KORI on CPAP, ED, elevated BMI, BPH, skin cancer on left scalp in late , and mass at base of right side of tongue. Lives with in [place], [place]. Interested in Civil War living history. 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 Friends with Dayron Cardoza, orthopedic surgeon in [place], [place]. Present Illness Seen today at the request of Dr. Sifuentes and Marleny Brewer [facility]. Several years ago noticed sensation in throat [...] compensated Given unprovoked nature and AF, favor supervisor intermediates anticoagulation Encouraged gradual resumption of physical activity Preop evaluation Agree with plan for interrupting DOAC as outlined in note of Dr. Deleon of hematology No need for stress testing prior to surgery Low BP Asymptomatic. Normal cardiac function. No evidence of sepsis This appears to be constitutional Avoid BP lowering meds Follow up prn Kashmir Lr MD [facility] cc: ?? Jovon Sifuentes MD [address] / [place] [address] documented in this encounter Plan of Treatment Upcoming Encounters Date Type Department Care Team (Late st Contact Info) Description 09/18/2024 10:20 AM EST Office Visit [place] [address] Sriram Contreras MD [facility] [place] [address] 10/31/2024 1:30 PM EST Office Visit Hematology/Oncology at [address] [phone] Dmitry Bhatti MD [facility] [place] [address] Ellen Mcrae APRN [facility] [place] [address] 10/31/2024 2:00 PM EST Infusion Hematology Oncology at [address] [phone] documented as of this encounter Visit Diagnoses Diagnosis Other acute pulmonary embolism without acute cor pulmonale Persistent atrial fibrillation Atrial fibrillation Lesion of tongue Other specified conditions of the tongue documented in this encounter Care Teams Office Technology Instructor Relationship Specialty Start Date End Date Jovon Sifuentes MD [address] [place] [address] PCP - General 09/30/10 09/10/21 documented as of this encounter
--- OUTSIDE RECORDS SUMMARY | 2024-09-01 14:14 | XMS_ITS | Encounter Summary ---
Author Organization [facility] Address [facility] [place] [address] Care Team Providers Care Side Sawyer Name Role Phone Jovon Sifuentes MD Primary Care Provider [phone] Reason for Visit * Consultation (Urgent) - Closed Specialty Diagnoses / Procedures Referred By Huma valladares Referred To Contact Hematology and Oncology Diagnoses Throat mass Zafar Madera MD [facility] [place] [address] [facility] Hem [place]c [address] [place] [address] Referral ID Status Reason Start Date Expiration Date V isits Requested Visits Authorized [id number] Closed Consult, Test & Treat 04/07/2017 04/07/2018 1 1 Encounter Details Date Type Department Care Team (Late st Contact Info) Description 04/14/2017 10:00 AM EDT Office Visit [place]ology [place] [phone] Geovanna Deleon MD [facility] DR HEMATOLOGY [place] [address] Other acute pulmonary embolism without [...] Deleon MD - 04/14/2017 10:00 AM EDT [facility] Hemophilia and Thrombosis Center [place] [address] THROMBOSIS CONSULTATION DATE OF VISIT 04/14/2017 Patient [...] with bleeding risk, he was referred to [facility] to see Dr. 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 [employer] Fevers/chills/sweats No Recent [...] 10:20 AM EST Office [place] [address] Sriram Contreras MD [facility] [place] [address] 10/31/2024 1:30 PM EST Office Visit Hematology/Oncology at [address] [phone] Dmitry Bhatti MD [facility] DR H[place]ATOLOG[place] [address] Ellen Mcrae APRN [facility] [place] [address] 10/31/2024 2:00 PM EST Infusion Hematology Oncology at [address] [phone] Scheduled Referrals Name Type Priority Associated Diagnoses Order Schedule Referral to Hematology and Oncology Outpatient Referral Routine Throat mass Ordered: 04/07/2017 documented as of this encounter Visit Diagnoses Diagnosis Other acute pulmonary embolism without acute cor pulmonale Pre-op evaluation Preoperative examination, unspecified Throat mass Swelling, mass, or lump in head and neck documented in this encounter Care Teams Side Sawyer Relationship Specialty Start Date End Date Jovon Sifuentes MD [address] [place] [address] PCP - General 09/30/10 09/10/21 documented as of this encounter
--- OUTSIDE RECORDS SUMMARY | 2024-09-01 14:14 | XMS_ITS | Encounter Summary ---
Author Organization [facility] [place] [address] Care Team Providers Care Thermal Technician Name Role Phone Jovon Sifuentes MD Primary Care Provider Encounter Details Date Type Department Care Team (Late st Contact Info) Description 04/29/2017 Tele[place] [phone] Vane Cardona Social History Tobacco Use Types [...] 10:20 AM EST Office [place] [phone] Sriram Contreras MD [facility] [place] [address] 10/31/2024 1:30 PM EST Office Visit Hematology/Oncology at [address] [phone] Dmitry Bhatti MD [facility] DR [place] [address] Ellen Mcrae APRN [facility] [place] [address] 10/31/2024 2:00 PM EST Infusion Hematology Oncology at [address] [phone] documented as of this encounter Visit Diagnoses Not on filedocumented in this encounter Care Teams Thermal Technician Relationship Specialty Start Date End Date Jovon Sifuentes MD [address] [place] [address] PCP - General 09/30/10 09/10/21 documented as of this encounter
--- OUTSIDE RECORDS SUMMARY | 2024-09-01 14:14 | XMS_ITS | Referral Summary ---
Author Organization [facility] Address [address] [place] [address] Care Team Providers Care Waterproofing Supervisor Name Role Phone Jovon Sifuentes MD Primary Care Provider [phone] Social History Tobacco Use Types Packs/Day Years Used Date Smoking Tobacco: Never Assessed Sex and Gender Information Value Date Recorded Sex Assigned at Not on file Gender Identity Not on file Sexual Orientation Not on file Plan of Treatment Not on file Care Teams Waterproofing Supervisor Relationship Specialty Start Date End Date Jovon Sifuentes MD [address] [place], [place] [address] PCP - General 09/05/09
[2024-09-01] MEDS: predniSONE 20 MG TAB 60 MG PO (14:16)
[2024-09-01 14:18] VITALS: BP 128/74; PULSE 72; RESP 12; TEMP 36.6; O2SAT 97
== END 2024-09-01 14:18 | disposition home or self-care (01) ==
PROVIDERS: Emergency Provider Emergency Medicine; PCP Family Medicine
DX: R22.0 Localized swelling, mass and lump, head (principal); L29.9 Pruritus, unspecified; H60.62 Unspecified chronic otitis externa, left ear; I48.91 Unspecified atrial fibrillation; Z86.73 Personal history of transient ischemic attack (TIA), and cerebral infarction without residual deficits; Z79.01 Long term (current) use of anticoagulants; Z87.891 Personal history of nicotine dependence
CPT/HCPCS: 99283; J7512

== ENCOUNTER 2024-10-24 03:04 | Outpatient (CLI) | payer MEDICARE, BC, SELFPAY ==
[2024-10-24 10:35] LABS: Abs Immature Grans 0.01 10^3/uL (0.0-0.06); Absolute Eosinophil Count 0.16 10^3/uL (0.0-0.7); Absolute Lymphocyte Count 1.47 10^3/uL (1.2-3.4); Absolute Neutrophil Count 1.77 10^3/uL (1.2-6.7); Basophils % 2.6 %; Eosinophils % 4.1 %; HCT 38.8 % (40.0-50.0); HGB 12.9 g/dL (13.5-17.5); Immature Grans % 0.3 %; Lymphocytes % 37.6 %; MCHC 33.2 % (32.0-36.0); MCV 96 fL (80-95); MPV 10.1 fL (8.0-11.0); Monocytes % 10.2 %; Neutrophils % 45.2 %; Platelet Count 177 10^3/uL (130-400); RBC 4.03 10^6/uL (4.36-5.78); RDW 13.6 % (11.8-14.1); RDW-SD 48.4 fL; WBC 3.91 10^3/uL (4.4-10.8)
[2024-10-24 10:56] LABS: ALT 16 U/L (16-63); AST 15 U/L (15-37); Albumin 3.2 g/dL (3.4-5.0); Alkaline Phosphatase 113 U/L (46-116); Anion Gap 9.1 mmol/L (3-11); BUN 19 mg/dL (7-18); Bilirubin, Total 0.46 mg/dL (0.2-1.0); CO2 26.9 mmol/L (21.0-32.0); CREATININE 1.1 mg/dL (0.70-1.30); Calcium 9.1 mg/dL (8.5-10.1); Chloride 110 mmol/L (98-107); Estimated GFR 70.44 (mL/min/1.73m2); Glucose 116 mg/dL (74-106); Potassium 4.3 mmol/L (3.5-5.1); Sodium 146 mmol/L (136-145); Total Protein 6.7 g/dL (6.4-8.2)
[2024-10-26 19:26] LABS: PSA, Ultrasensitive 0.13 ng/mL (<= 6.5)
[2024-10-29 08:26] LABS: Testosterone, Total <7.0 ng/dL (240-950)
== END 2024-10-24 03:05 | disposition home or self-care (01) ==
PROVIDERS: PCP Family Medicine; Visit Provider Internal Medicine
DX: C61 Malignant neoplasm of prostate (principal); C79.51 Secondary malignant neoplasm of bone
CPT/HCPCS: 36415; 80053; 84153; 84403; 85025

== ENCOUNTER 2024-12-05 13:58 | Outpatient (CLI) | payer MEDICARE, BC, SELFPAY ==
[2024-12-05 11:33] LABS: Abs Immature Grans 0.02 10^3/uL (0.0-0.06); Absolute Basophil Count 0.08 10^3/uL (0.0-0.2); Absolute Eosinophil Count 0.14 10^3/uL (0.0-0.7); Absolute Lymphocyte Count 1.77 10^3/uL (1.2-3.4); Absolute Monocyte Count 0.58 10^3/uL (0.1-0.8); Absolute Neutrophil Count 3.12 10^3/uL (1.2-6.7); Basophils % 1.4 %; Eosinophils % 2.5 %; HCT 41.4 % (40.0-50.0); HGB 14.1 g/dL (13.5-17.5); Immature Grans % 0.4 %; MCH 32.5 pg (27.0-33.0); MCHC 34.1 % (32.0-36.0); MCV 95 fL (80-95); MPV 9.7 fL (8.0-11.0); Monocytes % 10.2 %; Neutrophils % 54.5 %; Platelet Count 160 10^3/uL (130-400); RBC 4.34 10^6/uL (4.36-5.78); RDW-SD 46.1 fL; WBC 5.71 10^3/uL (4.4-10.8)
[2024-12-05 11:51] LABS: ALT 21 U/L (16-63); AST 15 U/L (15-37); Albumin 3.4 g/dL (3.4-5.0); Alkaline Phosphatase 115 U/L (46-116); Anion Gap 12.1 mmol/L (3-11); BUN 22 mg/dL (7-18); CO2 23.9 mmol/L (21.0-32.0); CREATININE 1.3 mg/dL (0.70-1.30); Calcium 9.2 mg/dL (8.5-10.1); Chloride 105 mmol/L (98-107); Estimated GFR 57.65 (mL/min/1.73m2); Glucose 131 mg/dL (74-106); Sodium 141 mmol/L (136-145); Total Protein 6.9 g/dL (6.4-8.2)
--- OUTSIDE RECORDS SUMMARY | 2024-12-05 14:07 | XMS_ITS | Encounter Summary ---
Author Organization [facility] [place] [address] Care Team Providers Care Tool Turret Lathe Set Up Operator Name Role Phone Paulino Finley MD Primary Care Provider [phone] Encounter Details Date Type Department Care Team (Late Contact Info) Description 08/17/2024 Notes [place] [address] Casi Dong Social History Tobacco Use Types [...] Department Care Team (Late Contact Info) Description 01/30/2025 11:00 AM EDT Office Visit Hematology/Oncology at [address] [phone] Dmitry Bhatti MD [facility] DR HEMATOLOGY [place] [address] Ellen Mcrae APRN [facility] [place] [address] 01/30/2025 11:30 AM EDT Infusion Hematology Oncology at [address] [phone] documented as of this encounter Visit Diagnoses Not on filedocumented in this encounter Care Teams Tool Turret Lathe Set Up Operator Relationship Specialty Start Date End Date Paulino Finley MD [address] [place] [address] PCP - General Emergency Medicine 09/11/21 documented as of this encounter
--- OUTSIDE RECORDS SUMMARY | 2024-12-05 14:07 | XMS_ITS | Encounter Summary ---
[place] [address] Care Team Providers Care Vamp Seamer Name Role Phone Paulino Finley MD Primary Care Provider [phone] Reason for Visit * Reason Comments Injections IM Lupron * Treatment/Therapy Plan Authorization (Routine) - Authorized Specialty Diagnoses / Procedures Referred By Contac t Referred To Contact Hematology and Oncology Diagnoses Prostate cancer metastatic to multiple sites Procedures TC LEUPROLIDE ACETATE 7.5MG, FOR DEPOST SUSPENSION (LUPRON DEPOT) [id number] LUPRON DEPOT Dmitry Bhatti MD [address] [place] [address] [place] [address] Dmitry Bhatti MD [address] [place] [address] [place] [address] Referral ID Status Reason Start Date Expiration Date V isits Requested Visits Authorized [id number] Authorized 07/08/2023 08/01/2025 101 Encounter Details Date Type Department Care Team (Late st Contact Info) Description 02/01/2024 10:00 AM EDT Infusion Hematology Oncology at [address] [phone] Prostate cancer metastatic to multiple sites Social History Tobacco Use Types Packs/Day Years Used Date Smoking Tobacco: Former Cigarettes 1 27 9 - 1995 Pipe Smokeless Tobacco: Never [...] Care Team (Late st Contact Info) Description 01/30/2025 11:00 AM EDT Office Visit Hematology/Oncology at [address] [phone] Dmitry Bhatti MD [facility] DR HEMATOLOGY [place] [address] Ellen Mcrae APRN [facility] [place] [address] 01/30/2025 11:30 AM EDT Infusion Hematology Oncology at [address] [phone] documented as of this encounter Visit Diagnoses [...] Gluteal documented in this encounter Care Teams Vamp Seamer Relationship Specialty Start Date End Date Paulino Finley MD [address] [place] [address] PCP - General Emergency Medicine 09/11/21 documented as of this encounter
--- OUTSIDE RECORDS SUMMARY | 2024-12-05 14:07 | XMS_ITS | Encounter Summary ---
Author Organization Formerly [facility] [place] [address] Care Team Providers Care Manager Of Product Name Role Phone Paulion Finley MD Primary Care Provider [phone] Encounter Details Date Type Department Care Team [...] 11:00 AM EDT Office Visit Hematology/Oncology at [address] [phone] Dmitry Bhatti MD [facility] DR HEMATOLOGY [place] [address] Ellen Mcrae APRN [facility] [place] [address] 01/30/2025 11:30 AM EDT Infusion Hematology Oncology at [address] [phone] documented as of this encounter Visit Diagnoses Not on filedocumented in this encounter Care Teams Manager Of Product Relationship Specialty Start Date End Date Paulino Finley MD [address] [place] [address] PCP - General Emergency Medicine 09/11/21 documented as of this encounter
--- OUTSIDE RECORDS SUMMARY | 2024-12-05 14:07 | XMS_ITS | Encounter Summary ---
[place] [address] Care Team Providers Care Loss Prevention Guard Name Role Phone Paulino Finley MD Primary Care Provider [phone] Reason for Visit * Reason Comments Injections * Treatment/Therapy Plan Authorization (Routine) - Authorized Specialty Diagnoses / Procedures Referred By Contac t Referred To Contact Hematology and Oncology Diagnoses prostate- 3 month fuv. labs prior- cbc/diff,cmp,psa,test. lupron to follow Lupron Procedures TC LEUPROLIDE ACETATE 7.5MG, FOR DEPOST SUSPENSION (LUPRON DEPOT) INFUSION ROOM Dmitry Bhatti MD [address] [place] [address] DR [place] [address] St Hem Onc Infusion [address] [place] [phone] Referral ID Status Reason Start Date Expiration Date V isits Requested Visits Authorized [id number] Authorized 08/01/2024 08/01/2025 99 100 Encounter Details Date Type Department Care Team (Late st Contact Info) Description 10/31/2024 1:30 PM EST Infusion Hematology Oncology at [address] [phone] Prostate cancer metastatic to multiple [...] Notes * Aby Del Rio RN - 10/31/2024 1:30 PM EST Infusion Note Diagnosis:Prostate Cancer Treatment: Lupron Injection [...] 11:00 AM EDT Office Visit Hematology/Oncology at [address] [phone] Dmitry Bhatti MD [facility] DR [place] [address] Ellen Mcrae APRN [facility] [place] [address] 01/30/2025 11:30 AM EDT Infusion Hematology Oncology at [address] [phone] documented as of this encounter Visit Diagnoses Diagnosis Prostate cancer metastatic to multiple sites Malignant neoplasm of prostate documented in this encounter Administered Medications Inactive Administered Medications - up to 3 most recent administrations Medication Order MAR Action Action Date Dose Rate Site leuprolide (Lupron Depot) 22.5 mg (3 month) intramuscular syringe kit 22.5 mg 22.5 mg, Intramuscular, ONCE, 1 dose, On Wed10/31/24 at 1415, Routine, This agent is restricted to outpatient use. Is this drug being given as an outpatient? Yes Given 10/31/2024 2:02 PM EST 22.5 mg Right Gluteal documented in this encounter Care Teams Loss Prevention Guard Relationship Specialty Start Date End Date Paulino Finley MD [address] [place] [address] PCP - General Emergency Medicine 09/11/21 documented as of this encounter
--- OUTSIDE RECORDS SUMMARY | 2024-12-05 14:07 | XMS_ITS | Encounter Summary ---
Author Organization [facility] [place] [address] Care Team Providers Care Blasting Contract Man Name Role Phone Paulino Finley MD Primary Care Provider [phone] Encounter Details Date Type Department Care Team [...] 11:00 AM EDT Office Visit Hematology/Oncology at [address] [phone] Dmitry Bhatti MD [facility] [place] [address] Ellen Mcrae APRN [facility] [place] [address] 01/30/2025 11:30 AM EDT Infusion Hematology Oncology at [address] [phone] documented as of this encounter Visit Diagnoses Not on filedocumented in this encounter Care Teams Blasting Contract Man Relationship Specialty Start Date End Date Paulino Finley MD [address] [place] [address] PCP - General Emergency Medicine 09/11/21 documented as of this encounter
--- OUTSIDE RECORDS SUMMARY | 2024-12-05 14:07 | XMS_ITS | Encounter Summary ---
Author Organization [facility] [place] [address] Care Team Providers Care Bellstand Attendant Name Role Phone Paulino Finley MD Primary Care Provider Encounter Details Date Type Department Care Team (Latest Contact Info) Description 10/30/2024 Travel Social History Tobacco Use Types Packs/Day [...] 11:00 AM EDT Office Visit Hematology/Oncology at [address] [phone] Dmitry Bhatti MD [facility] DR HEMATOLOGY [place] [address] Ellen Mcrae APRN [facility] [place] [address] 01/30/2025 11:30 AM EDT Infusion Hematology Oncology at [address] [phone] documented as of this encounter Visit Diagnoses Not on filedocumented in this encounter Care Teams Bellstand Attendant Relationship Specialty Start Date End Date Paulino Finley MD [address] [place] [address] PCP - General Emergency Medicine 09/11/21 documented as of this encounter
--- OUTSIDE RECORDS SUMMARY | 2024-12-05 14:07 | XMS_ITS | Encounter Summary ---
Author Organization [facility] [place] [address] Care Team Providers Care Butt Welder Name Role Phone Paulino Finley MD Primary Care Provider [phone] Encounter Details Date Type Department Care Team (Latest Contact Info) Description 09/18/2024 Travel Social History Tobacco Use Types Packs/Day [...] 11:00 AM EDT Office Visit Hematology/Oncology at [address] [phone] Dmitry Bhatti MD [facility] DR [place] [address] Ellen Mcrae APRN [facility] [place] [address] 01/30/2025 11:30 AM EDT Infusion Hematology Oncology at [address] [phone] documented as of this encounter Visit Diagnoses Not on filedocumented in this encounter Care Teams Butt Welder Relationship Specialty Start Date End Date Paulino Finley MD [address] [place] [address] PCP - General Emergency Medicine 09/11/21 documented as of this encounter
--- OUTSIDE RECORDS SUMMARY | 2024-12-05 14:07 | XMS_ITS | Encounter Summary ---
[place] [address] Care Team Providers Care Indirect Sales Representative Name Role Phone Paulino Finley MD Primary Care Provider [phone] Reason for Visit * Reason Comments Chemotherapy Injections * Treatment/Therapy Plan Authorization (Routine) - Authorized Specialty Diagnoses / Procedures Referred By Contac t Referred To Contact Hematology and Oncology Diagnoses prostate- 3 month fuv. labs prior- cbc/diff,cmp,psa,test. lupron to follow Lupron Procedures TC LEUPROLIDE ACETATE 7.5MG, FOR DEPOST SUSPENSION (LUPRON DEPOT) INFUSION ROOM Dmitry Bhatti MD [address] [place] [address] [place] [address] St Hem Onc Infusion [address] [place] [phone] Referral ID Status Reason Start Date Expiration Date V isits Requested Visits Authorized [id number] Authorized 08/01/2024 08/01/2025 99 100 Encounter Details Date Type Department Care Team (Late st Contact Info) Description 08/01/2024 1:30 PM EDT Infusion Hematology Oncology at [address] [phone] Prostate cancer metastatic to multiple [...] 11:00 AM EDT Office Visit Hematology/Oncology at [address] [phone] Dmitry Bhatti MD [facility] DR HEMATOLOGY [place] [address] Ellen Mcrae APRN [facility] [place] [address] 01/30/2025 11:30 AM EDT Infusion Hematology Oncology at [address] [phone] documented as of this encounter Visit Diagnoses [...] Gluteal documented in this encounter Care Teams Indirect Sales Representative Relationship Specialty Start Date End Date Paulino Finley MD [address] [place] [address] PCP - General Emergency Medicine 09/11/21 documented as of this encounter
--- OUTSIDE RECORDS SUMMARY | 2024-12-05 14:07 | XMS_ITS | Encounter Summary ---
[place] [address] Care Team Providers Care Counter Former Name Role Phone Paulino Finley MD Primary Care Provider [phone] Reason for Visit * Reason Comments Injections * Treatment/Therapy Plan Authorization (Routine) - Authorized Specialty Diagnoses / Procedures Referred By Contbela t Referred To Contact Hematology and Oncology Diagnoses Prostate cancer metastatic to multiple sites Procedures TC LEUPROLIDE ACETATE 7.5MG, FOR DEPOST SUSPENSION (LUPRON DEPOT) [id number] LUPRON DEPOT Dmitry Bhatti MD [address] [place] [address] DR HEMATOLOGY [place] [address] Dmitry Bhatti MD [address] [place] [address] DR HEMATOLOGY [place] [address] Referral ID Status Reason Start Date Expiration Date V isits Requested Visits Authorized [id number] Authorized 07/08/2023 08/01/2025 101 Encounter Details Date Type Department Care Team (Late st Contact Info) Description 05/09/2024 1:30 PM EDT Infusion Hematology Oncology at [address] [phone] Prostate cancer metastatic to multiple [...] 11:00 AM EDT Office Visit Hematology/Oncology at [address] [phone] Dmitry Bhatti MD [facility] DR HEMATOLOGY [place] [address] Ellen Mcrae APRN [facility] [place] [address] 01/30/2025 11:30 AM EDT Infusion Hematology Oncology at [address] [phone] documented as of this encounter Visit Diagnoses [...] Gluteal documented in this encounter Care Teams Counter Former Relationship Specialty Start Date End Date Paulino Finley MD [address] [place] [address] PCP - General Emergency Medicine 09/11/21 documented as of this encounter
--- OUTSIDE RECORDS SUMMARY | 2024-12-05 14:07 | XMS_ITS | Encounter Summary ---
Author Organization [facility] [place] [address] Care Team Providers Care Prosthodontist/Owner Name Role Phone Paulino Finley MD Primary Care Provider [phone] Reason for Referral * Consultation (Urgent) - Closed Specialty Diagnoses / Procedures Referred By Huma valladares Referred To Contact Genetics Diagnoses Prostate cancer metastatic to multiple sites Dmitry Bhatti MD [facility] [place] [address] [facility] [address] [place] [address] Referral ID Status Reason Start Date Expiration Date V isits Requested Visits Authorized [id number] Closed Consult, Test & Treat 12/21/2023 12/20/2024 1 1 Encounter Details Date Type Department Care Team (Late st Contact Info) Description 12/21/2023 10:00 AM EST Office Visit Hematology/Oncology at [address] [phone] Dmitry Bhatti MD [facility] [place] [address] Ellen Mcrae APRN [facility] [place] [place] [address] Prostate cancer metastatic to multiple sites (Primary [...] weight gain and leg swelling. Follows with electrical systems drafter Dr. Bah. He is currently on antibiotics [...] here with his today. They live in [place]. Medications: Your Medications Accurate as of December [...] adenocarcinoma, involving 1 of 1 core. - [place] score 4 + 5 = 9 (grade [...] adenocarcinoma, involving 1 of 1 core. - [place] score 5 + 4 = 9 (grade group 5), tumor extent 15 mm (95% of core). - Perineural invasion is identified. G. PROSTATE, LEFT BASE LATERAL, NEEDLE CORE BIOPSY: - Atypical small acinar proliferation (LOLITA), highly suspicious for minute focus (0.1 mm) of prostatic adenocarcinoma. H. PROSTATE, LEFT BASE MEDIAL, NEEDLE CORE BIOPSY: - Prostatic adenocarcinoma, involving 1 of 1 core. - [place] score 4 + 3 = 7 (grade group 3), 70% [place] pattern 4, tumor extent 6 mm (40% of core). - Cribriform [place] pattern 4 is present. I. PROSTATE, LEFT MID LATERAL, NEEDLE CORE BIOPSY: - Prostatic adenocarcinoma, involving 1 of 1 core. - [place] score 3 + 5 = 8 (grade group 4), tumor extent 4 mm (30% of core). J. PROSTATE, LEFT MID MEDIAL, NEEDLE CORE BIOPSY: - Prostatic adenocarcinoma, involving 1 of 1 core. - [place] score 4 + 5 = 9 (grade group 5), tumor extent 2 mm (15% of core). K. PROSTATE, LEFT APEX LATERAL, NEEDLE CORE BIOPSY: - Benign prostatic tissue. L. PROSTATE, LEFT APEX MEDIAL, NEEDLE CORE BIOPSY: - Prostatic adenocarcinoma, involving 1 of 1 core. - [place] score 5 + 4 = 9 (grade [...] Food and Drug Administration approved darolutamide (Nubeqa, [employer] tablets in combination with docetaxel for adult patients with metastatic hormone-sensitive prostate cancer (mHSPC). Efficacy was based on ARASENS ([id number]), a randomized, multicenter, double- blind, placebo-controlled clinical trial in 1306 patients with mHSPC. Patients were randomized to receive either darolutamide 600 mg orally twice daily plus docetaxel 75 mg/m2 intravenously administered every 3 weeks forup to 6 cycles or docetaxel plus placebo. All patients received a gonadotropin-releasing hormone analog concurrently or had a bilateral orchiectomy. The primary efficacy measure was overall survival (OS). Pegi-in-ovyk progression was an additional efficacy measure. Median OS was not reached (NR) (95% CI: NR, NR) in the darolutamide plus docetaxelarm and 48.9 months (95% CI: 44.4, NR) in docetaxel plus placebo arm (HR 0.68; 95% CI: 0.57, 0.80; p<0.0001). Treatment with darolutamide and docetaxel resulted in a statistically significant delay in dckg-kf-sbsa progression (HR 0.79; 95% CI: 0.66, 0.95; [...] back in 6 weeks withblood work and Justo. # Germline and somatic mutation testing: Will [...] 11:00 AM EDT Office Visit Hematology/Oncology at [address] [phone] Dmitry Bhatti MD [facility] DR HEMATOLOGY AND ONCOLOGY [place], [place] [id number] Ellen Mcrae APRN [facility] [place] [address] 01/30/2025 11:30 AM EDT Infusion Hematology Oncology at [address] [phone] Scheduled Referrals Name Type Priority Associated Diagnoses [...] monitoring documented in this encounter Care Teams Prosthodontist/Owner Relationship Specialty Start Date End Date Paulino Finley MD [address] [place] [address] PCP - General Emergency Medicine 09/11/21 documented as of this encounter
--- OUTSIDE RECORDS SUMMARY | 2024-12-05 14:07 | XMS_ITS | Encounter Summary ---
Author Organization [facility] [place] [address] Care Team Providers Care Completion Engineer Name Role Phone Paulino Finley MD Primary Care Provider Reason for Visit * Reason Comments Follow-up Things are good. Encounter Details Date Type Department Care Team (Late st Contact Info) Description 09/18/2024 10:20 AM EST Office [place] [address] Sriram Tyler MD [facility] [place] [address] Cancer of base of tongue Social History [...] - Inhaled Oxygen Concentration - - Weight 141.4 kg (311 lb 11.2 oz) 2023 10:24 AM EST Height 190.5 cm (6' 3) 09/18/2024 10:2 4 AM EST Body Mass Index 38.96 09/18/2024 10:24 AM EST documented in this encounter Progress Notes * Sriram Tyler MD - 09/18/2024 10:20 AM EST Images from the original note were not included. [facility] Follow Up Note Jose Bee is a 73 y.o. 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 Had an otitis externa, right ear, being treated/followed by Dr. Cabezas No issues with swallowing, no adenopathy EXAMINATION Wt Readings from Last 3 Encounters: 09/18/24 (!) 141.4 kg (311 lb 11.2 oz) 08/01/24 (!) 140.8 kg (310 lb 6.4 oz) 05/09/24 (!) 136.5 kg (301 lb) General: Well developed, no distress Head/face: Normocephalic, atraumatic Oral cavity: Normal exam of the lips, teeth/gums, floor of mouth, tongue. Normal oral mucosa. Normal palate. Oropharynx: Normal exam with post treatment changes Neck: S/p right neck dissection with no adenopathy, no masses, normal thyroid, normal salivary gland exam. Trachea midline. Resp: Normal speech, no stridor, normal respirations. MSK: No trismus Procedure Flexible Laryngoscopy Indication Oropharyngeal cancer Description Informed verbal consent obtained and time out performed. A flexible laryngoscope was used to evaluate bilateral nasal cavity, nasopharynx, oropharynx, hypopharynx and larynx. The examination was recorded on the TelePack Unit and uploaded to the [employer] Developer. Findings Nasal cavity normal Nasopharynx normal Oropharynx S/p tongue base resection with no recurrence Larynx normal Hypopharynx normal ASSESSMENT/RECOMMENDATIONS MAGY Follow up in 1 year I appreciate the opportunity to be involved in Mr. Bee's care. 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
--- OUTSIDE RECORDS SUMMARY | 2024-12-05 14:07 | XMS_ITS | Encounter Summary ---
Author Organization [facility] [place] [address] Care Team Providers Care Driver Merchandiser Name Role Phone Paulino Finley MD Primary Care Provider [phone] Encounter Details Date Type Department Care Team [...] 11:00 AM EDT Office Visit Hematology/Oncology at [address] [phone] Dmitry Bhatti MD [facility] DR HEMATOLOGY [place] [address] Ellen Mcrae APRN [facility] [place] [address] 01/30/2025 11:30 AM EDT Infusion Hematology Oncology at [address] [phone] documented as of this encounter Visit Diagnoses Not on filedocumented in this encounter Care Teams Driver Merchandiser Relationship Specialty Start Date End Date Paulino Finley MD [address] [place] [address] PCP - General Emergency Medicine 09/11/21 documented as of this encounter
--- OUTSIDE RECORDS SUMMARY | 2024-12-05 14:07 | XMS_ITS | Encounter Summary ---
Author Organization [facility] [place] [address] Care Team Providers Care Tobacco Stripper Name Role Phone Paulino Finley MD Primary Care Provider [phone] Encounter Details Date Type Department Care Team [...] 11:00 AM EDT Office Visit Hematology/Oncology at [address] [phone] Dmitry Bhatti MD [facility] DR HEMATOLOGY [place] [address] Ellen Mcrae APRN [facility] [place] [address] 01/30/2025 11:30 AM EDT Infusion Hematology Oncology at [address] [phone] documented as of this encounter Visit Diagnoses Not on filedocumented in this encounter Care Teams Tobacco Stripper Relationship Specialty Start Date End Date Paulino Finley MD [address] [place] [address] PCP - General Emergency Medicine 09/11/21 documented as of this encounter
--- OUTSIDE RECORDS SUMMARY | 2024-12-05 14:07 | XMS_ITS | Encounter Summary ---
Author Organization [facility] [place] [address] Care Team Providers Care Assembler Trim Name Role Phone Paulino Finley MD Primary Care Provider [phone] Encounter Details Date Type Department Care Team [...] 11:00 AM EDT Office Visit Hematology/Oncology at [address] [phone] Dmitry Bhatti MD [facility] [address] [place] [address] Ellen Mcrae APRN [facility] [place] [place] [address] 01/30/2025 11:30 AM EDT Infusion Hematology Oncology at [address] [phone] documented as of this encounter Visit Diagnoses Not on filedocumented in this encounter Care Teams Assembler Trim Relationship Specialty Start Date End Date Paulino Finley MD [address] [place] [address] PCP - General Emergency Medicine 09/11/21 documented as of this encounter
--- OUTSIDE RECORDS SUMMARY | 2024-12-05 14:07 | XMS_ITS | Encounter Summary ---
Author Organization [facility] [place] [address] Care Team Providers Care External Grinder Tender Name Role Phone Paulino Finley MD Primary Care Provider Encounter Details Date Type Department Care Team ([facility] Contact Info) Description 07/21/2024 Orders Only [place]ematology [place] [address] Patricia Partida Social History Tobacco Use Types [...] 11:00 AM EDT Office Visit Hematology/Oncology at [address] [phone] Dmitry Bhatti MD [facility] [address] [place] [address] Ellen Mcrae APRN [facility] [place] [place] [address] 01/30/2025 11:30 AM EDT Infusion Hematology Oncology at [address] [phone] documented as of this encounter Visit Diagnoses Not on filedocumented in this encounter Care Teams External Grinder Tender Relationship Specialty Start Date End Date Paulino Finley MD [address] [place] [address] PCP - General Emergency Medicine 09/11/21 documented as of this encounter
--- OUTSIDE RECORDS SUMMARY | 2024-12-05 14:07 | XMS_ITS | Encounter Summary ---
Author Organization [facility] [place] [address] Care Team Providers Care Actuarial Technician Name Role Phone Paulino Finley MD Primary Care Provider [phone] Encounter Details Date Type Department Care Team (Latest Contact Info) Description 09/11/2024 Travel Social History Tobacco Use Types Packs/Day [...] 11:00 AM EDT Office Visit Hematology/Oncology at [address] [phone] Dmitry Bhatti MD [facility] DR [place] [address] Ellen Mcrae APRN [facility] [place] [address] 01/30/2025 11:30 AM EDT Infusion Hematology Oncology at [address] [phone] documented as of this encounter Visit Diagnoses Not on filedocumented in this encounter Care Teams Actuarial Technician Relationship Specialty Start Date End Date Paulino Finley MD [address] [place] [address] PCP - General Emergency Medicine 09/11/21 documented as of this encounter
--- OUTSIDE RECORDS SUMMARY | 2024-12-05 14:07 | XMS_ITS | Encounter Summary ---
Author Organization [facility] [place] [address] Care Team Providers Care Back Facer Name Role Phone Paulino Finley MD Primary Care Provider [phone] Encounter Details Date Type Department Care Team (Late st Contact Info) Description 08/01/2024 1:00 PM EDT Office Visit Hematology/Oncology at [address] [phone] Dmitry Bhatti MD [facility] DR HEMATOLOGY [place] [address] Ellen Mcrae APRN [facility] [place] [address] Prostate cancer metastatic to multiple sites; Androgen [...] this encounter Progress Notes * Ellen Mcrae, MODEL MAKER PLASTER - 08/01/2024 1:00 PM EDT Images from [...] here with his today. They live in [place]. Medications: Your Medications Accurate as of August [...] adenocarcinoma, involving 1 of 1 core. - Sanford score 4 + 5 = 9 (grade group 5), tumor extent 1 mm (15% of core). - Perineural invasion is identified. C. PROSTATE, RIGHT MID LATERAL, NEEDLE CORE BIOPSY: - Prostatic adenocarcinoma, involving 1 of 1 core. - Sanford score 5 + 4 = 9 (grade [...] adenocarcinoma, involving 1 of 1 core. - Sanford score 5 + 4 = 9 (grade [...] 3 = 7 (grade group 3), 70% Sanford pattern 4, tumor extent 6 mm (40% of core). - Cribriform Sanford pattern 4 is present. I. PROSTATE, LEFT MID LATERAL, NEEDLE CORE BIOPSY: - Prostatic adenocarcinoma, involving 1 of 1 core. - Marko score 3 + 5 = 8 (grade group 4), tumor extent 4 mm (30% of core). J. PROSTATE, LEFT MID MEDIAL, NEEDLE CORE BIOPSY: - Prostatic adenocarcinoma, involving 1 of 1 core. - Sanford score 4 + 5 = 9 (grade [...] Food and Drug Administration approved darolutamide (Nubeqa, [employer] tablets in combination with docetaxel for adult patients with metastatic hormone-sensitive prostate cancer (mHSPC). Efficacy was based on ARASENS ([id number]), a randomized, multicenter, double- blind, placebo-controlled clinical trial in 1306 patients with mHSPC. Patients were randomized to receive either darolutamide 600 mg orally twice daily plus docetaxel 75 mg/m2 intravenously administered every 3 weeks forup to 6 cycles or docetaxel plus placebo. All patients received a gonadotropin-releasing hormone analog concurrently or had a bilateral orchiectomy. The primary efficacy measure was overall survival (OS). Ladj-xk-ouac progression was an additional efficacy measure. Median OS was not reached (NR) (95% CI: NR, NR) in the darolutamide plus docetaxelarm and 48.9 months (95% CI: 44.4, NR) in docetaxel plus placebo arm (HR 0.68; 95% CI: 0.57, 0.80; p<0.0001). Treatment with darolutamide and docetaxel resulted in a statistically significant delay in mkjr-bg-cljw progression (HR 0.79; 95% CI: 0.66, 0.95; [...] 11:00 AM EDT Office Visit Hematology/Oncology at [address] [phone] Dmitry Bhatti MD [facility] HEMATOLOGY [place] [address] Ellen Mcrae APRN [facility] [place] [address] 01/30/2025 11:30 AM EDT Infusion Hematology Oncology at [address] [phone] documented as of this encounter Visit Diagnoses Diagnosis Prostate cancer metastatic to multiple sites Malignant neoplasm of prostate Androgen deprivation therapy Encounter for therapeutic drug monitoring Fatigue, unspecified type Hot flashes Symptomatic menopausal or female climacteric states documented in this encounter Care Teams Back Facer Relationship Specialty Start Date End Date Paulino Finley MD [address] [place] [address] PCP - General Emergency Medicine 09/11/21 documented as of this encounter
--- OUTSIDE RECORDS SUMMARY | 2024-12-05 14:07 | XMS_ITS | Encounter Summary ---
Author Organization [facility] [place] [address] Care Team Providers Care Security Solutions Engineer Name Role Phone Paulino Finley MD Primary Care Provider [phone] Reason for Visit * Reason Onset Date Comments Labs Only 12/05/2024 CBC recheck Encounter Details Date Type Department Care Team (Late st Contact Info) Description 12/05/2024 Telephone Hematology/Oncology at [address] [phone] Debo Antunez RN Labs Only (CBC recheck) Social History Tobacco Use Types Packs/Day Years [...] encounter Miscellaneous Notes * Telephone Encounter - Debo Antunez RN - 12/05/2024 1:30 PM EST CBC 12/05 at [facility]. WBC 5.71, Hg 14.1, plt 160, ANC 3.12. Reviewed with Chu Mcrae APRN. Called and let Jose know as well. Next FUV 01/30/25 documented in this encounter Plan of Treatment Upcoming Encounters Date Type Department Care Team (Late st Contact Info) Description 01/30/2025 11:00 AM EDT Office Visit Hematology/Oncology at [address] [phone] Dmitry Bhatti MD [facility] DR [place] [address] Ellen Mcrae APRN [facility] [place] [address] 01/30/2025 11:30 AM EDT Infusion Hematology Oncology at [address] [phone] documented as of this encounter Visit Diagnoses Not on filedocumented in this encounter Care Teams Security Solutions Engineer Relationship Specialty Start Date End Date Paulino Finley MD [address] [place] [address] PCP - General Emergency Medicine 09/11/21 documented as of this encounter
--- OUTSIDE RECORDS SUMMARY | 2024-12-05 14:07 | XMS_ITS | Encounter Summary ---
Author Organization [facility] [place] [address] Care Team Providers Care Boats Renter Name Role Phone Paulino Finley MD Primary Care Provider [phone] Encounter Details Date Type Department Care Team (Late Contact Info) Description 12/15/2023 Ancillary Procedure Radiology Library at [facility] [address] Dmitry Bhatti MD [facility] [place] [address] Social History Tobacco Use Types Packs/Day Years [...] 11:00 AM EDT Office Visit Hematology/Oncology at [address] [phone] Dmitry Bhatti MD [facility] H[place]ATOLOG[place] [address] Ellen Mcrae APRN [facility] [place] [address] 01/30/2025 11:30 AM EDT Infusion Hematology Oncology at [address] [phone] documented as of this encounter Procedures Procedure Name Priority Date/Time Associated Diagnosis Comments FILM LIBRARY STORAGE ONLY CT CHEST ABDOMEN PELVIS Routine 12/15/2023 12:00 AM EST documented in this encounter Results * Film Library- Storage Only CT Chest Abdomen Pelvis (12/15/2023 12:00 AM EST) Narrative [facility][NOTE 3] - 12/21/2023 10:45 AM EST This exam is auto-finalizing. It's purpose is for storage only. Dmitry Bhatti MD IMG FILM LIBRARY ORD ERABLES Performing Organization Address City/State/[facility] Co de Phone Number [place], [place] documented in this encounter Visit Diagnoses Not on filedocumented in this encounter Care Teams Boats Renter Relationship Specialty Start Date End Date Paulino Finley MD [address] [place] [address] PCP - General Emergency Medicine 09/11/21 documented as of this encounter
--- OUTSIDE RECORDS SUMMARY | 2024-12-05 14:07 | XMS_ITS | Encounter Summary ---
[place] [address] Care Team Providers Care Robotics Engineer Name Role Phone Paulino Finley MD Primary Care Provider [phone] Encounter Details Date Type Department Care Team (Late Contact Info) Description 03/27/2024 Telephone Hematology/Oncology at [address] [phone] Halima Cesar Social History Tobacco Use Types [...] 11:00 AM EDT Office Visit Hematology/Oncology at [address] [phone] [facility] DR HEMATOLOGY [place] [address] [facility] [place] [address] 01/30/2025 11:30 AM EDT Infusion Hematology Oncology at [address] [phone] documented as of this encounter Visit Diagnoses Not on filedocumented in this encounter Care Teams Robotics Engineer Relationship Specialty Start Date End Date Paulino Finley MD [address] [place] [address] PCP - General Emergency Medicine 09/11/21 documented as of this encounter
--- OUTSIDE RECORDS SUMMARY | 2024-12-05 14:07 | XMS_ITS | Encounter Summary ---
Author Organization [facility] [place] [address] Care Team Providers Care Diesel Mechanic Farm Name Role Phone Paulino Finley MD Primary Care Provider [phone] Encounter Details Date Type Department Care Team (Late st Contact Info) Description 02/01/2024 9:30 AM EDT Office Visit Hematology/Oncology at [address] [phone] Dmitry Bhatti MD [facility] DR [place] [address] Ellen Mcrae APRN [facility] [place] [address] Malignant neoplasm of prostate metastatic to bone; [...] this encounter Progress Notes * Ellen Mcrae, FILTER PULP WASHER - 02/01/2024 9:30 AM EDT Images from [...] melgar was lanced with Ophthalmology. Follows with strickler attendant Dr. Bah. He completed a course of [...] here with his today. They live in [place]. Medications: Your Medications Accurate as of February [...] adenocarcinoma, involving 1 of 1 core. - Tomahawk score 5 + 4 = 9 (grade group 5), tumor extent 10 mm (80% of core). D. PROSTATE, RIGHT MID MEDIAL, NEEDLE CORE BIOPSY: - Prostatic adenocarcinoma, involving 1 of 1 core. - Tomahawk score 4 + 5 = 9 (grade group 5), tumor extent 9 mm (80% of core). E. PROSTATE, RIGHT APEX LATERAL, NEEDLE CORE BIOPSY: - Prostatic adenocarcinoma, involving 1 of 1 core. - Tomahawk score 5 + 4 = 9 (grade [...] adenocarcinoma, involving 1 of 1 core. - Tomahawk score 3 + 5 = 8 (grade [...] Food and Drug Administration approved darolutamide (Nubeqa, [employer] tablets in combination with docetaxel for adult patients with metastatic hormone-sensitive prostate cancer (mHSPC). Efficacy was based on ARASENS ([id number]), a randomized, multicenter, double- blind, placebo-controlled clinical trial in 1306 patients with mHSPC. Patients were randomized to receive either darolutamide 600 mg orally twice daily plus docetaxel 75 mg/m2 intravenously administered every 3 weeks forup to 6 cycles or docetaxel plus placebo. All patients received a gonadotropin-releasing hormone analog concurrently or had a bilateral orchiectomy. The primary efficacy measure was overall survival (OS). Gcsz-zm-pmjx progression was an additional efficacy measure. Median OS was not reached (NR) (95% CI: NR, NR) in the darolutamide plus docetaxelarm and 48.9 months (95% CI: 44.4, NR) in docetaxel plus placebo arm (HR 0.68; 95% CI: 0.57, 0.80; p<0.0001). Treatment with darolutamide and docetaxel resulted in a statistically significant delay in chdt-uj-snkp progression (HR 0.79; 95% CI: 0.66, 0.95; [...] 11:00 AM EDT Office Visit Hematology/Oncology at [address] [phone] Dmitry Bhatti MD [facility] DR [place] [address] Ellen Mcrae APRN [facility] [place] [address] 01/30/2025 11:30 AM EDT Infusion Hematology Oncology at [address] [phone] documented as of this encounter Visit Diagnoses Diagnosis Malignant neoplasm of prostate metastatic to bone Malignant neoplasm of prostate Androgen deprivation therapy Encounter for therapeutic drug monitoring Fatigue, unspecified type documented in this encounter Care Teams Diesel Mechanic Farm Relationship Specialty Start Date End Date Paulino Finley MD [address] [place] [address] PCP - General Emergency Medicine 09/11/21 documented as of this encounter
--- OUTSIDE RECORDS SUMMARY | 2024-12-05 14:07 | XMS_ITS | Encounter Summary ---
Author Organization [facility] [place] [address] Care Team Providers Care Waste Removalist Name Role Phone Paulino Finley MD Primary Care Provider [phone] Encounter Details Date Type Department Care Team (Late st Contact Info) Description 05/09/2024 1:00 PM EDT Office Visit Hematology/Oncology at [address] [phone] Dmitry Steven MD [facility] [place] [address] Ellen Mcrae APRN [facility] [place] [address] Malignant neoplasm of prostate metastatic to bone [...] here with his today. They live in [place]. Medications: Your Medications Accurate as of May [...] adenocarcinoma, involving 1 of 1 core. - Midway score 4 + 5 = 9 (grade [...] adenocarcinoma, involving 1 of 1 core. - Midway score 5 + 4 = 9 (grade group 5), tumor extent 16 mm (100% of core). - Perineural invasion is identified. F. PROSTATE, RIGHT APEX MEDIAL, NEEDLE CORE BIOPSY: - Prostatic adenocarcinoma, involving 1 of 1 core. - Midway score 5 + 4 = 9 (grade group 5), tumor extent 15 mm (95% of core). - Perineural invasion is identified. G. PROSTATE, LEFT BASE LATERAL, NEEDLE CORE BIOPSY: - Atypical small acinar proliferation (LOLITA), highly suspicious for minute focus (0.1 mm) of prostatic adenocarcinoma. H. PROSTATE, LEFT BASE MEDIAL, NEEDLE CORE BIOPSY: - Prostatic adenocarcinoma, involving 1 of 1 core. - Midway score 4 + 3 = 7 (grade group 3), 70% Midway pattern 4, tumor extent 6 mm (40% [...] adenocarcinoma, involving 1 of 1 core. - Midway score 4 + 5 = 9 (grade [...] Food and Drug Administration approved darolutamide (Nubeqa, [employer] tablets in combination with docetaxel for adult patients with metastatic hormone-sensitive prostate cancer (mHSPC). Efficacy was based on ARASENS ([id number]), a randomized, multicenter, double- blind, placebo-controlled clinical trial in 1306 patients with mHSPC. Patients were randomized to receive either darolutamide 600 mg orally twice daily plus docetaxel 75 mg/m2 intravenously administered every 3 weeks forup to 6 cycles or docetaxel plus placebo. All patients received a gonadotropin-releasing hormone analog concurrently or had a bilateral orchiectomy. The primary efficacy measure was overall survival (OS). Etfs-iv-vwov progression was an additional efficacy measure. Median OS was not reached (NR) (95% CI: NR, NR) in the darolutamide plus docetaxelarm and 48.9 months (95% CI: 44.4, NR) in docetaxel plus placebo arm (HR 0.68; 95% CI: 0.57, 0.80; p<0.0001). Treatment with darolutamide and docetaxel resulted in a statistically significant delay in xhuc-mi-lojt progression (HR 0.79; 95% CI: 0.66, 0.95; [...] 11:00 AM EDT Office Visit Hematology/Oncology at [address] [phone] Dmitry Steven MD [facility] [place] [address] Ellen Mcrae APRN [facility] [place] [address] 01/30/2025 11:30 AM EDT Infusion Hematology Oncology at [address] [phone] Scheduled Orders Name Type Priority Associated Diagnoses [...] prostate documented in this encounter Care Teams Waste Removalist Relationship Specialty Start Date End Date Paulino Finley MD [address] [place] [address] PCP - General Emergency Medicine 09/11/21 documented as of this encounter
--- OUTSIDE RECORDS SUMMARY | 2024-12-05 14:07 | XMS_ITS | Encounter Summary ---
[place] [address] Care Team Providers Care Funnel Setter Name Role Phone Paulino Finley MD Primary Care Provider [phone] Reason for Visit * Reason Comments Specialty Pharmacy Review Nubeqa 300mg t ablet Encounter Details Date Type Department Care Team (Late st Contact Info) Description 01/04/2024 Specialty [place] [address] Jeannie Villatoro, [facility] Social [...] Villatoro - 01/04/2024 11:59 PM EST The [facility] has completed a benefits investigation for Jose Bee to reviewtheir eligibility to fill at [facility]. Per patient's medication list they are prescribed Nubeqa 300mg tablet and the medication is able to be filled at the [facility], but the medication cost may not be financially viable. The patient is eligible to fill the medication through [facility] with a high copay. No PA required. Due to the high copay, the patient has been referred to [facility] for nanotechnician assistance. documented in this encounter Plan of Treatment Upcoming Encounters Date Type Department Care Team (Late st Contact Info) Description 01/30/2025 11:00 AM EDT Office Visit Hematology/Oncology at [address] [phone] Dmitry Bhatti MD [facility] DR HEMATOLOGY [place] [address] Ellen Mcrae APRN [facility] [place] [address] 01/30/2025 11:30 AM EDT Infusion Hematology Oncology at [address] [phone] documented as of this encounter Visit Diagnoses Not on filedocumented in this encounter Care Teams Funnel Setter Relationship Specialty Start Date End Date Paulino Finley MD [address] [place] [address] PCP - General Emergency Medicine 09/11/21 documented as of this encounter
--- OUTSIDE RECORDS SUMMARY | 2024-12-05 14:07 | XMS_ITS | Encounter Summary ---
[place] [address] Care Team Providers Care Odd Job Worker Name Role Phone Paulino Finley MD Primary Care Provider [phone] Encounter Details Date Type Department Care Team (Late Contact Info) Description 07/11/2024 [place] [phone] Casi Dong Social History Tobacco Use Types [...] the application for assistance with Nubeqa to [employer]. I will follow through once the inspector semiconductor wafer program makes a decision. documented in this encounter Plan of Treatment Upcoming Encounters Date Type Department Care Team (Late st Contact Info) Description 01/30/2025 11:00 AM EDT Office Visit Hematology/Oncology at [address] [phone] Dmitry Bhatti MD [facility] DR [place] [address] Ellen Mcrae APRN [facility] [place] [address] 01/30/2025 11:30 AM EDT Infusion Hematology Oncology at [address] [phone] documented as of this encounter Visit Diagnoses Not on filedocumented in this encounter Care Teams Odd Job Worker Relationship Specialty Start Date End Date Paulino Finley MD [address] [place] [address] PCP - General Emergency Medicine 09/11/21 documented as of this encounter
--- OUTSIDE RECORDS SUMMARY | 2024-12-05 14:07 | XMS_ITS | Encounter Summary ---
Author Organization [facility] [place] [address] Care Team Providers Care Button Sewer Hand Name Role Phone Paulino Finley MD Primary Care Provider [phone] Encounter Details Date Type Department Care Team [...] 11:00 AM EDT Office Visit Hematology/Oncology at [address] [phone] Dmitry Bhatti MD [facility] DR HEMATOLOGY [place] [address] Ellen Mcrae APRN [facility] [place] [address] 01/30/2025 11:30 AM EDT Infusion Hematology Oncology at [address] [phone] documented as of this encounter Visit Diagnoses Not on filedocumented in this encounter Care Teams Button Sewer Hand Relationship Specialty Start Date End Date Paulino Finley MD [address] [place] [address] PCP - General Emergency Medicine 09/11/21 documented as of this encounter
--- OUTSIDE RECORDS SUMMARY | 2024-12-05 14:07 | XMS_ITS | Encounter Summary ---
Author Organization [facility] [place] [address] Care Team Providers Care Dancer Or Choreographer Name Role Phone Paulino Finley MD Primary Care Provider [phone] Encounter Details Date Type Department Care Team (Late Contact Info) Description 12/15/2023 12:05 AM EST Ancillary Procedure Radiology Library at [facility] [place] [phone] Dmitry Bhatti MD [facility] HEMATOLOGY [place] [address] Social History Tobacco Use Types Packs/Day Years [...] AM EDT Office Visit Hematology/Oncology at [address] [phone] Dmitry Bhatti MD [facility] HEMATOLOGY [place] [address] Ellen Mcrae APRN [facility] [place] [address] 01/30/2025 11:30 AM EDT Infusion Hematology Oncology at [address] [phone] documented as of this encounter Procedures Procedure Name Priority Date/Time Associated Diagnosis Comments FILM LIBRARY STORAGE ONLY NUCLEAR MEDICINE Routine 12/15/2023 12:05 AM EST documented in this encounter Results * Film Library- Storage Only nuclear medicine (12/15/2023 12:05 AM EST) Narrative [facility] - 12/21/2023 10:46 AM EST This exam is auto-finalizing. It's purpose is for storage only. Dmitry Bhatti MD [facility] [place] FILM LIBRARY ORD ERABLES Performing Organization Address City/State/[facility] Co de Phone Number [place], [place] documented in this encounter Visit Diagnoses Not on filedocumented in this encounter Care Teams Dancer Or Choreographer Relationship Specialty Start Date End Date Paulino Finley MD [address] [place] [address] PCP - General Emergency Medicine 09/11/21 documented as of this encounter
--- OUTSIDE RECORDS SUMMARY | 2024-12-05 14:07 | XMS_ITS | Encounter Summary ---
Author Organization [facility] [place] [address] Care Team Providers Care Tractor Trailer Operator Name Role Phone Paulino Finley MD Primary Care Provider [phone] Encounter Details Date Type Department Care Team (Late st Contact Info) Description 06/22/2024 [place] [address] Casi Dong Social History Tobacco Use Types [...] AM EDT Office Visit Hematology/Oncology at [address] [phone] Dmitry Bhatti MD [facility] [address] [place] [address] Ellen Mcrae APRN [facility] [place] [address] 01/30/2025 11:30 AM EDT Infusion Hematology Oncology at [address] [phone] documented as of this encounter Visit Diagnoses Not on filedocumented in this encounter Care Teams Tractor Trailer Operator Relationship Specialty Start Date End Date Paulino Finley MD [address] [place] [address] PCP - General Emergency Medicine 09/11/21 documented as of this encounter
--- OUTSIDE RECORDS SUMMARY | 2024-12-05 14:07 | XMS_ITS | Encounter Summary ---
Author Organization [facility] [place] [address] Care Team Providers Care Cafe Operator Name Role Phone Paulino Finley MD Primary Care Provider [phone] Encounter Details Date Type Department Care Team (Late st Contact Info) Description 10/31/2024 1:00 PM EST Office Visit Hematology/Oncology at [address] [phone] Dmitry Bhatti MD [facility] [place] [address] Ellen Mcrae APRN [facility] [place] [address] Prostate cancer metastatic to multiple sites; Androgen deprivation therapy; Hot flashes; Chemotherapy-induced neuropathy Social History Tobacco Use Types Packs/Day Years [...] Sign Reading Time Taken Comments Blood Pressure 121/72 10/31/2024 12:53 PM EST Pulse 65 10/31/2024 12:53 PM EST Temperature 36.2 ??C (97.1 ??F) 10/31/2024 1 2:53 PM EST Respiratory Rate 18 10/31/2024 12:5 3 PM EST Oxygen Saturation 100% 10/31/2024 12: 53 PM EST Inhaled Oxygen Concentration - - Weight 140.8 kg (310 lb 6.4 oz) 024 12:53 PM EST with shoes Height 186.6 cm (6' 1.47) 10/31/2024 1 2:53 PM EST Body Mass Index 40.44 10/31/2024 12:53 PM EST documented in this encounter Progress Notes * Ellen Mcrae, SUPERVISOR HOME ECONOMICS - 10/31/2024 1:00 PM EST Images from the original [...] on May 13. Pathology revealed prostatic adenocarcinoma Greenlawn 5+4. Staging CT abdomen and pelvis and bone scan demonstrated diffuse bony metastatic disease along with retroperitoneal and pelvic lymphadenopathy. He was started on degarelix on May 27 and was switched to Lupron 7.5 mg on July 01 and continues on lupron q 3months.He has completed docetaxel chemotherapy and continues darolutamide. His treatment history is as detailed below. Interval history 10/31/24 Jose is in clinic for follow-up on metastatic prostate cancer, Lupron injection and Nubeqa toxicity check. Since his last visit he developed otitis externa and was seen in the ER 09/01/24. He was treated with a couple courses of antibiotics and followed with Dr. Cabezas from ENT and his symptoms resolved completely. About a month ago he developed nausea, vomiting, and chills. His symptoms lasted for 2- 3 days and resolved. Currently he has no fever, chills, or signs of infection. He has no issues with his bowels. His hair is starting to grow back. He has intermittent shooting pains in his feet since the chemotherapy, he does not want to try any treatment for this. Continues Flomax for nocturia and follows with his PCP. He thinks he may have increased frequency of urination. No hematuria. No pain anywhere. Hot flashes are bothersome. ROS is otherwise negative. PMH: Periorbital cellulitis, chalazion and blepharitis on doxycycline 2023 A-fib on Eliquis COVID-19 infection September 03, 2023 Gross hematuria in August 24, 2023 Social History: He is here with his today. They live in [place]. His daughter is visiting from [place] where she was working on a horse farm. Medications: Your Medications Accurate as of October 31, 2024 1:13 PM. If you have any questions, [...] times daily. Generic drug: apixaban Refills: 0 mometasone 0.1 % Solution Commonly known as: ELOCON INSTILL 4 DROPS INTO BOTH EARS DAILY FOR 110 DAYS Refills: 0 ondansetron 8 mg tablet Commonly [...] interval history PE: Constitutional: NAD HENT: Eyes: nonicteric Neck: No lymphadenopathy Cardiovascular: Irregular rate and rhythm, hx of afib. Resp: Effort normal. No respiratory distress. CTA Abdominal: Soft, NT, ND, BS+ Extremities: no swelling BP 121/72 (Patient Position: Sitting) Pulse 65 Temp 36.2 ??C (97.1 ??F) (Temporal) Resp 18 Ht 186.6 cm (6' 1.47) Wt (!) 140.8 kg (310 lb 6.4 oz) Comment: with shoes SpO2 100% BMI 40.44kg/m?? Pathology: Final Diagnosis A. PROSTATE, RIGHT BASE [...] adenocarcinoma, involving 1 of 1 core. - Greenlawn score 5 + 4 = 9 (grade [...] adenocarcinoma, involving 1 of 1 core. - Greenlawn score 5 + 4 = 9 (grade group 5), tumor extent 15 mm (95% of core). - Perineural invasion is identified. G. PROSTATE, LEFT BASE LATERAL, NEEDLE CORE BIOPSY: - Atypical small acinar proliferation (LOLITA), highly suspicious for minute focus (0.1 mm) of prostatic adenocarcinoma. H. PROSTATE, LEFT BASE MEDIAL, NEEDLE CORE BIOPSY: - Prostatic adenocarcinoma, involving 1 of 1 core. - Greenlawn score 4 + 3 = 7 (grade group 3), 70% Greenlawn pattern 4, tumor extent 6 mm (40% of core). - Cribriform Marko pattern 4 is present. I. PROSTATE, LEFT MID LATERAL, NEEDLE CORE BIOPSY: - Prostatic adenocarcinoma, involving 1 of 1 core. - Greenlawn score 3 + 5 = 8 (grade group 4), tumor extent 4 mm (30% of core). J. PROSTATE, LEFT MID MEDIAL, NEEDLE CORE BIOPSY: - Prostatic adenocarcinoma, involving 1 of 1 core. - Greenlawn score 4 + 5 = 9 (grade group 5), tumor extent 2 mm (15% of core). K. PROSTATE, LEFT APEX LATERAL, NEEDLE CORE BIOPSY: - Benign prostatic tissue. L. PROSTATE, LEFT APEX MEDIAL, NEEDLE CORE BIOPSY: - Prostatic adenocarcinoma, involving 1 of 1 core. - Marko score 5 + 4 = 9 (grade group 5), tumor extent 2 mm (20% of core). Labs: 10/24/24 WBC 3.91, hemoglobin 12.9, platelet count 177, ANC 1.77, sodium 146, potassium 4.3, BUN 19, creatinine 1.1, calcium 9.1, TB 0.46, AST 15, ALT 16, alkaline phosphatase 113, total protein 6.7,albumin 3.2 08/01/24 WBC 5.28, hemoglobin 14.8, platelet count [...] PSA 17.2 Test 7.9 Date PSA Testosterone 10/24/24 0.13 <7.0 07/25/24 0.04 05/02/24 0.02 <7.0 12/21/23 0.05 [...] Food and Drug Administration approved darolutamide (Nubeqa, Quartix.) tablets in combination with docetaxel for adult patients with metastatic hormone-sensitive prostate cancer (mHSPC). Efficacy was based on ARASENS ([id number]), a randomized, multicenter, double- blind, placebo-controlled clinical trial in 1306 patients with mHSPC. Patients were randomized to receive either darolutamide 600 mg orally twice daily plus docetaxel 75 mg/m2 intravenously administered every 3 weeks forup to 6 cycles or docetaxel plus placebo. All patients received a gonadotropin-releasing hormone analog concurrently or had a bilateral orchiectomy. The primary efficacy measure was overall survival (OS). Bshv-iv-jkqy progression was an additional efficacy measure. Median OS was not reached (NR) (95% CI: NR, NR) in the darolutamide plus docetaxelarm and 48.9 months (95% CI: 44.4, NR) in docetaxel plus placebo arm (HR 0.68; 95% CI: 0.57, 0.80; p<0.0001). Treatment with darolutamide and docetaxel resulted in a statistically significant delay in sxna-ja-uduk progression (HR 0.79; 95% CI: 0.66, 0.95; [...] this time. Continues lupron q 3 months. 10/31/24 PSA is up slightly at 0.13. Continues Nubeqa and lupron q 3 months. Discussed that his PSAremains low and we will continue to monitor. If PSA continues to rise we will check PSMA PET scan. Will repeat PSA in 3 months. 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 Not interested in medication particularly gabapentin. Declines referral to Neurology. 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 Contreras #Nocturia: 1-2x per night. Continues Flomax per PCP. #A.fib: Continues to follow with PCP Dr. Finley #Hot flashes: tolerable. Declines treatment. #Leukopenia/anemia: likely secondary to treatment. Repeat CBC in 4-6 weeks. Plan: Continue darolutamide 600 mg twice daily leuprolide 22.5 mg every 3 months due today Next visit with CBC, CMP, PSA, testosterone and Lupron in 3 months Repeat CBC in 4-6 weeks and we will call with results. Ellen Mcrae APRN 30 minutes were spent on date of visit, including non-face to face time. documented in this encounter Plan of Treatment Upcoming Encounters Date Type Department Care Team (Late st Contact Info) Description 01/30/2025 11:00 AM EDT Office Visit Hematology/Oncology at [address] [phone] Dmitry Bhatti MD [facility] [place] [address] Ellen Mcrae APRN [facility] [place] [address] 01/30/2025 11:30 AM EDT Infusion Hematology Oncology at [address] [phone] documented as of this encounter Visit Diagnoses Diagnosis Prostate cancer metastatic to multiple sites Malignant neoplasm of prostate Androgen deprivation therapy Encounter for therapeutic drug monitoring Hot flashes Symptomatic menopausal or female climacteric states 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
--- OUTSIDE RECORDS SUMMARY | 2024-12-05 14:07 | XMS_ITS | Encounter Summary ---
[place] [address] Care Team Providers Care Janitor And Cleaner Name Role Phone Paulino Finley MD Primary Care Provider [phone] Encounter Details Date Type Department Care Team (Late Contact Info) Description 10/09/2024 [place] [address] Casi Dong Social History Tobacco Use Types [...] encounter Progress Notes * Casi Dong - 10/09/2024 10:57 AM EST I faxed the application for assistance with Nubeqa to [employer]. I will follow through once the flooring salesperson program makes a decision. This is for the 2024 enrollment year. documented in this encounter Plan of Treatment Upcoming Encounters Date Type Department Care Team (Late st Contact Info) Description 01/30/2025 11:00 AM EDT Office Visit Hematology/Oncology at [address] [phone] Dmitry Bhatti MD [facility] [address] [place] [address] Ellen Mcrae APRN [facility] [place] [address] 01/30/2025 11:30 AM EDT Infusion Hematology Oncology at [address] [phone] documented as of this encounter Visit Diagnoses Not on filedocumented in this encounter Care Teams Janitor And Cleaner Relationship Specialty Start Date End Date Paulino Finley MD [address] [place] [address] PCP - General Emergency Medicine 09/11/21 documented as of this encounter
--- OUTSIDE RECORDS SUMMARY | 2024-12-05 14:07 | XMS_ITS | Encounter Summary ---
Author Organization [facility] [place] [address] Care Team Providers Care Salesperson Surgical Appliances Name Role Phone Paulino Finley MD Primary Care Provider [phone] Encounter Details Date Type Department Care Team [...] 11:00 AM EDT Office Visit Hematology/Oncology at [address] [phone] Dmitry Bhatti MD [facility] [address] [place] [address] Ellen Mcrae APRN [facility] [place] [address] 01/30/2025 11:30 AM EDT Infusion Hematology Oncology at [address] [phone] documented as of this encounter Visit Diagnoses Not on filedocumented in this encounter Care Teams Salesperson Surgical Appliances Relationship Specialty Start Date End Date Paulino Finley MD [address] [place] [address] PCP - General Emergency Medicine 09/11/21 documented as of this encounter
--- OUTSIDE RECORDS SUMMARY | 2024-12-05 14:07 | XMS_ITS ---
Author Organization [facility] [place] [address] Care Team Providers Care Inspector Packer Glass Container Name Role Phone Paulino Finley MD Primary Care Provider [phone] Active Problems Problem Noted Date Diagnosed Date [...] Current Oncology Plans Leuprolide (Lupron Depot) injection ([facility] [place] [place], [place], MAN, NDP, [facility], NLH, NS)* [...] treatments are documented for this patient in [facility]. Treatments may have been administered in another system. Resolved Problems Problem Noted Date Diagnosed Date Resolved Date Acute respiratory failure 07/20/2017 Overview (07/20/2017): Worsening oxygenation.
--- OUTSIDE RECORDS SUMMARY | 2024-12-05 14:07 | XMS_ITS | Encounter Summary ---
[place] [address] Care Team Providers Care Guest Advisor Name Role Phone Paulino Finley MD Primary Care Provider [phone] Encounter Details Date Type Department Care Team (Late Contact Info) Description 01/28/2024 Telephone Hematology/Oncology at [address] [phone] Halima Cesar Social History Tobacco Use Types [...] He is getting labs morning off at [facility] documented in this encounter Plan of Treatment Upcoming Encounters Date Type Department Care Team (Late Contact Info) Description 01/30/2025 11:00 AM EDT Office Visit Hematology/Oncology at [address] [phone] Dmitry Bhatti MD [facility] DR [place] [address] Ellen Mcrae APRN [facility] [place] [address] 01/30/2025 11:30 AM EDT Infusion Hematology Oncology at [address] [phone] documented as of this encounter Visit Diagnoses Not on filedocumented in this encounter Care Teams Guest Advisor Relationship Specialty Start Date End Date Paulino Finley MD [address] [place] [address] PCP - General Emergency Medicine 09/11/21 documented as of this encounter
--- OUTSIDE RECORDS SUMMARY | 2024-12-05 14:07 | XMS_ITS | Clinical Summary ---
Author Organization [facility] Address [facility] [place] [address] Care Team Providers Care Surveillance Specialist Name Role Phone Paulino Finley MD Primary Care Provider Allergies Active Allergy Reactions Criticality Noted Date [...] Take 1 tablet by mouth daily. Active mometasone (ELOCON) 0.1 % Solution INSTILL 4 DROPS INTO BOTH EARS DAILY FOR 110 DAYS 09/05/2024 Active Active Problems Problem Noted Date Diagnosed Date Prostate cancer metastatic to multiple sites Malignant neoplasm of prostate metastatic to bon e 07/08/2023 OKRI on CPAP 04/30/2017 Adult BMI 30+ 04/30/2017 Atrial fibrillation 04/26/2017 Overview (04/30/2017): March 2017: noted in ED in [facility]. Previously noted to be paroxysmal. [...] Encounters Date Type Department Care Team Description 12/05/2024 Telephone Hematology/Oncology at [address] [phone] Antunez, Debo M, RN Labs Only (CBC recheck) 10/31/2024 1:30 PM EST Infusion Hematology Oncology at [address] [phone] Prostate cancer metastatic to multiple sites 10/31/2024 1:00 PM EST Office Visit Hematology/Oncology at [address] [phone] Dmitry Bhatti MD Burns, Kimberly A, APRN Prostate cancer metastatic to multiple sites; Androgen deprivation therapy; Hot flashes; Chemotherapy-induced neuropathy 10/30/2024 Travel 10/09/2024 [place] [phone] Casi Dong 09/18/2024 10:20 AM EST Office [place] [phone] Sriram Contreras MD Cancer of base of tongue 09/18/2024 Travel 09/11/2024 Travel from Last 3 Months Family History Medical [...] Mass Index 40.44 10/31/2024 12:53 PM EST Plan of Treatment Upcoming Encounters Date Type Department Care Team (Late st Contact Info) Description 01/30/2025 11:00 AM EDT Office Visit Hematology/Oncology at [address] [phone] Dmitry Bhatti MD [facility] DR [place] [address] Ellen Mcrae APRN [facility] [place] [address] 01/30/2025 11:30 AM EDT Infusion Hematology Oncology at [address] [phone] Health Maintenance Due Date Last Done Comments CT Colonography 1949 Colonoscopy 1950 Colorectal Cancer Screening 1950 FIT DNA 1949 FIT 1949 Sigmoidoscopy (10 year) with FIT yearly 1950 Sigmoidoscopy 1949 Hepatitis C Screening 1967 Lipid Screening 1967 Tetanus/Diphtheria/Pertussis Vaccines (1 - Tdap) 1968 Pneumoccocal Vaccine: 50+ (1 of 1 - PCV) 1999 Zoster vaccine (1 of 2) 1999 Advance Directive 2004 RSV Vaccine (1 - Risk 60-74 years 1-dose series) 2009 AAA Screen 2014 Covid-19 Vaccine (1 - 2023-2 5 season) 2024 Influenza (Flu) vaccine (1 o f 1 - Influenza standard series) 07/09/2024 Diabetes Screening (HgbA1C o r Glucose) Discontinued 07/08/2023, 07/29/2017, 07/28/2017, Additional history exists Procedures Procedure Name Priority Date/Time Associated Diagnosis Comments LAB SCAN 12/05/2024 12:00 AM EST LAB SCAN 12/05/2024 12:00 AM EST LAB SCAN 10/24/2024 12:00 AM EST LAB SCAN 10/24/2024 12:00 AM EST ECG SCAN 09/04/2024 12:00 AM EDT COMPREHENSIVE METABOLIC PANEL Routine 07/08/2023 2:07 PM EDT Malignant neoplasm of prostate metastatic to bone from Last 3 Months or Most Recently Relevant to Health Maintenance Results * Scan Doc: Lab (12/05/2024 12:00 AM EST) Only the most recent of4 resultswithin the time period is included. Narrative 12/05/2024 12:00 AM EST Ordered by an unspecified provider. Scanning Provider MEDIA MGR SCAN EXT O RDR/RSLT * Scan Doc: ECG (09/04/2024 12:00 AM EDT) Narrative 09/04/2024 12:00 AM EDT Ordered by an unspecified provider. Scanning Provider MEDIA MGR SCAN EXT O RDR/RSLT * (ABNORMAL) Comprehensive metabolic panel (non-fasting) (07/08/2023 2:07 PM EDT) Glucose 73 65 - 199 mg/dL [facility] Comment:Diabetes: >=200 mg/d L plus symptoms Blood Urea Nitrogen 16 10 - 20 mg/dL [facility] Creatinine 1.12 0.80 - 1.50 mg/dL [facility] Sodium 143 135 - 145 mmol/L [facility] Potassium 4.4 3.5 - 5.0 mmol/L [facility] Comment: Please note: ??Patients with WBC >100,000 may have falsely elevated Potassium levels. ??For accurate Potassium quantification in these patients send serum separator tube (gold top) for subsequent determinations. ??Contact the Clinical Chemistry Laboratory if there are any questions. Chloride 109(H) 98 - 107 mmol/L [facility] Carbon Dioxide 24 22 - 31 mmol/L [facility] Anion Gap 10 5 - 15 mmol/L [facility] Calcium 9.4 8.5 - 10.5 mg/dL [facility] Protein, Total 7.2 6.1 - 8.0 g/dL [facility] Albumin 4.2 3.2 - 5.2 g/dL [facility] Aspartate Aminotransferase 17 0 - 39 unit/L [facility] Alanine Aminotransferase 17 0 - 55 unit/L [facility] Alkaline Phosphatase 407(H) 40 - 130 unit/L [facility] Bilirubin, Total 0.2 0.2 - 1.3 mg/dL [facility] Est Glomerular Filtration Rate 69 >=60 mL/min/1. 73 m?? [facility] Comment: This patient's estimated GFR [...] In Lab Dmitry Bhatti MD CHEMISTRY ORDERABLES [facility] [place] [address] from Last 3 Months or Most Recently Relevant to Health Maintenance Advance Directives Documents on File Type Date Recorded Patient Sap Bpc Architect Expl anation Personal Sap Bpc Architect 12/26/2018 9:00 AM lino bee - * [...] is based on Patient wishes. Care Teams Surveillance Specialist Relationship Specialty Start Date End Date Paulino Finley MD [address] [place] [address] PCP - General Emergency Medicine 09/11/21
--- OUTSIDE RECORDS SUMMARY | 2024-12-05 14:07 | XMS_ITS | Encounter Summary ---
[place] [address] Care Team Providers Care Physiotherapist'S Assistant Name Role Phone Paulino Finley MD Primary Care Provider [phone] Encounter Details Date Type Department Care Team (Late Contact Info) Description 07/17/2024 Notes [place] [address] Casi Dong Social History Tobacco Use Types [...] 11:00 AM EDT Office Visit Hematology/Oncology at [address] [phone] Dmitry Bhatti MD [facility] [address] [place] [address] Ellen Mcrae APRN [facility] [place] [address] 01/30/2025 11:30 AM EDT Infusion Hematology Oncology at [address] [phone] documented as of this encounter Visit Diagnoses Not on filedocumented in this encounter Care Teams Physiotherapist'S Assistant Relationship Specialty Start Date End Date Paulino Finley MD [address] [place] [address] PCP - General Emergency Medicine 09/11/21 documented as of this encounter
--- OUTSIDE RECORDS SUMMARY | 2024-12-05 14:07 | XMS_ITS | Encounter Summary ---
[place] [address] Care Team Providers Care Lab Assistant Name Role Phone Paulino Finley MD Primary Care Provider [phone] Encounter Details Date Type Department Care Team (Latest Contact Info) Description 01/10/2024 1:14 PM EST - 01/10/2024 11:59 PM EST Hospital Encounter Hematology [place] [address] Prostate cancer metastatic to multiple sites Discharge [...] AM EDT Office Visit Hematology/Oncology at [address] [phone] Dmitry Bhatti MD [facility] DR [place] [address] Ellen Mcrae APRN [facility] [place] [address] 01/30/2025 11:30 AM EDT Infusion Hematology Oncology at [address] [phone] documented as of this encounter Procedures Procedure Name Priority Date/Time Associated Diagnosis Comments RESEARCH VENIPUNCTURE Routine 01/10/2024 1:22 PM EST Prostate cancer metastatic to multiple sites documented in this encounter Results * Research Venipuncture (01/10/2024 1:22 PM EST) Research Venipuncture Drawn [facility] Blood 01/10/2024 1:22 PM EST 01/10/2024 1:34 PM EST Narrative Resulting Agency Comment Spec In Lab Mey Tamez MD CHEMISTRY ORDERABLES Performing Organization Address City/State/[facility] Co de Phone Number [facility] [place] [address] documented in this encounter Visit Diagnoses Diagnosis Prostate cancer metastatic to multiple sites Malignant neoplasm of prostate documented in this encounter Care Teams Lab Assistant Relationship Specialty Start Date End Date Paulino Finley MD [address] [place] [address] PCP - General Emergency Medicine 09/11/21 documented as of this encounter
--- OUTSIDE RECORDS SUMMARY | 2024-12-05 14:07 | XMS_ITS | Encounter Summary ---
Author Organization [facility]ly [facility] [place] [address] Care Team Providers Care Submarine Worker Name Role Phone Paulino Finley MD Primary Care Provider [phone] Encounter Details Date Type Department Care Team (Late Contact Info) Description 01/03/2024 Orders Only Hematology [place] [address] Kayley Lynne, [facility] HEMATOLOGY [place] [address] Prostate cancer metastatic to multiple sites Social [...] AM EDT Office Visit Hematology/Oncology at [address] [phone] Dmitry Bhatti MD [facility] [address] HEMATOLOGY [place] [address] Ellen Mcrae APRN [facility] [place] [address] 01/30/2025 11:30 AM EDT Infusion Hematology Oncology at [address] [phone] documented as of this encounter Visit Diagnoses Diagnosis Prostate cancer metastatic to multiple sites Malignant neoplasm of prostate documented in this encounter Care Teams Submarine Worker Relationship Specialty Start Date End Date Paulino Finley MD [address] [place] [address] PCP - General Emergency Medicine 09/11/21 documented as of this encounter
--- OUTSIDE RECORDS SUMMARY | 2024-12-05 14:07 | XMS_ITS | Encounter Summary ---
Author Organization [facility] [address] Care Team Providers Care Entry Level Project Coordinator Name Role Phone Paulino Finley MD Primary Care Provider [phone] Encounter Details Date Type Department Care Team [...] 11:00 AM EDT Office Visit Hematology/Oncology at [address] [phone] Dmitry Bhatti MD [facility] DR [place] [address] Ellen Mcrae APRN [facility] [place] [address] 01/30/2025 11:30 AM EDT Infusion Hematology Oncology at [address] [phone] documented as of this encounter Visit Diagnoses Not on filedocumented in this encounter Care Teams Entry Level Project Coordinator Relationship Specialty Start Date End Date Paulino Finley MD [address] [place] [address] PCP - General Emergency Medicine 09/11/21 documented as of this encounter
--- OUTSIDE RECORDS SUMMARY | 2024-12-05 14:07 | XMS_ITS | Encounter Summary ---
Author Organization [facility] [place] [address] Care Team Providers Care Powder Blender And Pourer Name Role Phone Paulino Finley MD Primary Care Provider [phone] Reason for Visit * Reason Onset Date Comments Results 02/02/2024 Encounter Details Date Type Department Care Team (Late st Contact Info) Description 02/02/2024 Telephone [place]ology [place] [address] Braeden Brown [facility] Hematology/[place] [address] Results Social History Tobacco Use Types Packs/Day [...] results is provided below. Please beadvised that [place] law requires that all health care workers respect the confidentiality ofthis information and not pass it along to other health care providers, insurance companies, or individuals without the written permission of the patient. The [facility]amil[facility] Cancer Program welcomes any questions about these matters. Our phone number is: [phone]. On 01/10/2024 Jose was seen for genetic counseling and subsequently underwent genetic testing for a hereditary predisposition to cancers in eight major organ systems including breast, gynecologic,gastrointestinal, endocrine, genitourinary, skin, brain/nervous system, sarcoma and hematologic. Following are the results of this test. Result: [facility]'s CancerNext-Expanded +EnerTrac Panel showed no mutation was detected. This means that Jose does not carry a mutation in the genes detectable by this test. The following 71 genes were analyzed: AIP, ALK, APC, KATHARINA, BAP1, BARD1, BMPR1A, BRCA1, BRCA2, BRIP1, CDC73, CDH1, CDK4, CDKN1B, CDKN2A, CHEK2, DICER1, FH, FLCN, KIF1B, LZTR1, MAX, MEN1, MET, MLH1, MSH2, MSH6, MUTYH, NF1, NF2, NTHL1, PALB2, PHOX2B, PMS2, POT1, NTKSZ1I, PTCH1, PTEN, RAD51C, RAD51D, RB1, RET, SDHA, SDHAF2, SDHB, SDHC,SDHD, SMAD4, SMARCA4, SMARCB1, SMARCE1, STK11, SUFU, HHBR696, TP53, TSC1, TSC2 and VHL (sequencing and [...] the genes with no increased cancer risks. [employer] is continually collecting and analyzing their data, [...] and mailing address stay updated in the [facility] system, in order for us [...] Periodic colonoscopy screening as recommended by Jose's welding equipment repairer. Skin cancer screening Skin cancer screening and sun protection are important for everyone, regardless of genetic predisposition. Consideration of routine dermatologic/skin exams, as recommended by Jose's primary care provideror wardrobe image consultant. documented in this encounter Plan of Treatment Upcoming Encounters Date Type Department Care Team (Late st Contact Info) Description 01/30/2025 11:00 AM EDT Office Visit Hematology/Oncology at [address] [phone] Dmitry Bhatti MD [facility] [place] [address] Ellen Mcrae APRN [facility] [place] [address] 01/30/2025 11:30 AM EDT Infusion Hematology Oncology at [address] [phone] documented as of this encounter Visit Diagnoses Not on filedocumented in this encounter Care Teams Powder Blender And Pourer Relationship Specialty Start Date End Date Paulino Finley MD [address] [place] [address] PCP - General Emergency Medicine 09/11/21 documented as of this encounter
--- OUTSIDE RECORDS SUMMARY | 2024-12-05 14:07 | XMS_ITS | Encounter Summary ---
Author Organization [facility] [place] [address] Care Team Providers Care Law Firm Administrator Name Role Phone Paulino Finley MD Primary Care Provider [phone] Encounter Details Date Type Department Care Team (Late Contact Info) Description 01/05/2024 Orders Only [place] [address] Braeden Brown [facility] Hematology/[place] [address] Prostate cancer metastatic to multiple sites Social [...] 11:00 AM EDT Office Visit Hematology/Oncology at [address] [phone] Dmitry Bhatti MD [facility] [place] [address] Ellen Mcrae APRN [facility] [place] [address] 01/30/2025 11:30 AM EDT Infusion Hematology Oncology at [address] [phone] documented as of this encounter Results * Research Venipuncture (01/10/2024 1:22 PM EST) Research Venipuncture Drawn [facility] Blood 01/10/2024 1:22 PM EST 01/10/2024 1:34 PM EST Narrative Resulting Agency Comment Spec In Lab Mey Tamez MD CHEMISTRY ORDERABLES [facility] [place] [address] documented in this encounter Visit Diagnoses Diagnosis Prostate cancer metastatic to multiple sites Malignant neoplasm of prostate documented in this encounter Care Teams Law Firm Administrator Relationship Specialty Start Date End Date Paulino Finley MD [address] [place] [address] PCP - General Emergency Medicine 09/11/21 documented as of this encounter
--- OUTSIDE RECORDS SUMMARY | 2024-12-05 14:07 | XMS_ITS | Encounter Summary ---
[place] [address] Care Team Providers Care Bike Assembler Name Role Phone Paulino Finley MD Primary Care Provider [phone] Encounter Details Date Type Department Care Team (Late st Contact Info) Description 08/07/2024 Notes [place] [address] Casi Dong Social History Tobacco Use Types [...] 11:00 AM EDT Office Visit Hematology/Oncology at [address] [phone] Dmitry Bhatti MD [facility] [address] [place] [address] Ellen Mcrae APRN [facility] [place] [address] 01/30/2025 11:30 AM EDT Infusion Hematology Oncology at [address] [phone] documented as of this encounter Visit Diagnoses Not on filedocumented in this encounter Care Teams Bike Assembler Relationship Specialty Start Date End Date Paulino Finley MD [address] [place] [address] PCP - General Emergency Medicine 09/11/21 documented as of this encounter
--- OUTSIDE RECORDS SUMMARY | 2024-12-05 14:07 | XMS_ITS | Encounter Summary ---
Author Organization [facility] Address [facility] [place] [address] Care Team Providers Care Junior Accounting Clerk Name Role Phone Paulino Finley MD Primary Care Provider [phone] Reason for Visit * Reason Comments Genetic Evaluation * Consultation (Urgent) - Closed Specialty Diagnoses / Procedures Referred By Huma valladares Referred To Contact Genetics Diagnoses Prostate cancer metastatic to multiple sites Dmitry Bhatti MD [facility] [address] [place] [address] [facility] [address] [place] [address] Referral ID Status Reason Start Date Expiration Date V isits Requested Visits Authorized [id number] Closed Consult, Test & Treat 12/21/2023 12/20/2024 1 1 Encounter Details Date Type Department Care Team (Late st Contact Info) Description 01/10/2024 1:00 PM EST Office Visit Hematology [place] [address] [facility] Dr Hematology/[place] [address] Malignant neoplasm of prostate metastatic [...] adenocarcinoma, involving 1 of 1 core. - [place] score 4 + 5 = 9 (grade [...] adenocarcinoma, involving 1 of 1 core. - [place] score 5 + 4 = 9 (grade [...] 6 mm (40% of core). - Cribriform [place] pattern 4 is present. I. PROSTATE, LEFT MID LATERAL, NEEDLE CORE BIOPSY: - Prostatic adenocarcinoma, involving 1 of 1 core. - [place] score 3 + 5 = 8 (grade group 4), tumor extent 4 mm (30% of core). J. PROSTATE, LEFT MID MEDIAL, NEEDLE CORE BIOPSY: - Prostatic adenocarcinoma, involving 1 of 1 core. - [place] score 4 + 5 = 9 (grade [...] Cancer Paternal Aunt Maternal ethnic background is Setsw[place], Kosovan. Paternal ethnic background is [place], Nigerian. There is no known Ashkenazi Taoist ancestry. Genetic risk assessment Based on personal [...] at [email or web address]. Jose opted for testing with [facility]' CancerNext-Expanded +RNAinsight Panel, a next generation sequencing panel that simultaneously analyzes 71 genes, including BRCA1 and BRCA2, that contribute to increased risk for cancer. Jose was consented. His blood sample was drawn and sent to [facility]. Testing will take up to 3 weeks [...] 11:00 AM EDT Office Visit Hematology/Oncology at [address] [phone] Dmitry Bhatti MD [facility] [place] [address] Ellen Mcrae APRN [facility] [place] [address] 01/30/2025 11:30 AM EDT Infusion Hematology Oncology at [address] [phone] Scheduled Referrals Name Type Priority Associated Diagnoses [...] breast documented in this encounter Care Teams Junior Accounting Clerk Relationship Specialty Start Date End Date Paulino Finley MD [address] [place] [address] PCP - General Emergency Medicine 09/11/21 documented as of this encounter
--- OUTSIDE RECORDS SUMMARY | 2024-12-05 14:08 | XMS_ITS | Encounter Summary ---
Author Organization [facility] [place] [address] Care Team Providers Care Storage Architect Name Role Phone Paulino Finley MD Primary Care Provider [phone] Encounter Details Date Type Department Care Team (Latest Contact Info) Description 08/10/2023 9:00 AM EDT Clinical Support Hematology/Oncology at [address] [phone] Dmitry Bhatti MD [facility] [address] [place] [address] Dina Schrader, GILLIAN Prostate cancer metastatic to multiple sites Social [...] on May 13. Pathology revealed prostatic adenocarcinoma [place] 5+4. Staging CT abdomen and pelvis and [...] fibrillation March 2017: noted in ED in [facility]. Previously noted to be paroxysmal. 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 He is to Briana for 40 yrs. 4 children - All live in different states - [place]. Enjoys raising Beef Cattle and doing Civil War and Living History and shoot Black powder/Antique firearms. He enjoys builiding Firearms/Blacksmithing - [employer]coal, [place], etc. Social Determinants of Health Financial [...] adenocarcinoma, involving 1 of 1 core. - [place] score 4 + 5 = 9 (grade [...] 6 mm (40% of core). - Cribriform [place] pattern 4 is present. I. PROSTATE, LEFT [...] Food and Drug Administration approved darolutamide (Nubeqa, [employer] tablets in combination with docetaxel for adult patients with metastatic hormone-sensitive prostate cancer (mHSPC). Efficacy was based on ARASENS ([id number]), a randomized, multicenter, double- blind, placebo-controlled clinical trial in 1306 patients with mHSPC. Patients were randomized to receive either darolutamide 600 mg orally twice daily plus docetaxel 75 mg/m2 intravenously administered every 3 weeks forup to 6 cycles or docetaxel plus placebo. All patients received a gonadotropin-releasing hormone analog concurrently or had a bilateral orchiectomy. The primary efficacy measure was overall survival (OS). Xzhl-cl-xzcb progression was an additional efficacy measure. Median OS was not reached (NR) (95% CI: NR, NR) in the darolutamide plus docetaxelarm and 48.9 months (95% CI: 44.4, NR) in docetaxel plus placebo arm (HR 0.68; 95% CI: 0.57, 0.80; p<0.0001). Treatment with darolutamide and docetaxel resulted in a statistically significant delay in diqg-bu-djgg progression (HR 0.79; 95% CI: 0.66, 0.95; [...] AM EDT Office Visit Hematology/Oncology at [address] [phone] Dmitry Bhatti MD [facility] [place] [address] Ellen Mcrae APRN [facility] [place] [place] [address] 01/30/2025 11:30 AM EDT Infusion Hematology Oncology at [address] [phone] documented as of this encounter Visit Diagnoses Diagnosis Prostate cancer metastatic to multiple sites Malignant neoplasm of prostate documented in this encounter Care Teams Storage Architect Relationship Specialty Start Date End Date Paulino Finley MD [address] [place] [address] PCP - General Emergency Medicine 09/11/21 documented as of this encounter
--- OUTSIDE RECORDS SUMMARY | 2024-12-05 14:08 | XMS_ITS | Encounter Summary ---
Author Organization [facility] [place] [address] Care Team Providers Care Internet Assessor Name Role Phone Paulino Finley MD Primary Care Provider [phone] Encounter Details Date Type Department Care Team (Late Contact Info) Description 08/23/2023 Orders Only Hematology/Oncology at [address] [phone] Dmitry Bhatti MD [facility] [place] [address] Malignant neoplasm of prostate metastatic to bone; [...] 11:00 AM EDT Office Visit Hematology/Oncology at [address] [phone] Dmitry Bhatti MD [facility] [place] [address] Ellen Mcrae APRN [facility] [place] [address] 01/30/2025 11:30 AM EDT Infusion Hematology Oncology at [address] [phone] documented as of this encounter Visit Diagnoses Diagnosis Malignant neoplasm of prostate metastatic to bone Malignant neoplasm of prostate Hematuria, unspecified type documented in this encounter Care Teams Internet Assessor Relationship Specialty Start Date End Date Paulino Finley MD [address] [place] [address] PCP - General Emergency Medicine 09/11/21 documented as of this encounter
--- OUTSIDE RECORDS SUMMARY | 2024-12-05 14:08 | XMS_ITS | Encounter Summary ---
Author Organization [facility] [place] [address] Care Team Providers Care Aquaculture Farmer Name Role Phone Paulino Finley MD Primary Care Provider [phone] Encounter Details Date Type Department Care Team [...] AM EDT Office Visit Hematology/Oncology at [address] [phone] Dmitry Bhatti MD [facility] DR HEMATOLOGY [place] [address] Ellen Mcrae APRN [facility] [place] [address] 01/30/2025 11:30 AM EDT Infusion Hematology Oncology at [address] [phone] documented as of this encounter Visit Diagnoses Not on filedocumented in this encounter Care Teams Aquaculture Farmer Relationship Specialty Start Date End Date Paulino Finley MD [address] [place] [address] PCP - General Emergency Medicine 09/11/21 documented as of this encounter
--- OUTSIDE RECORDS SUMMARY | 2024-12-05 14:08 | XMS_ITS | Encounter Summary ---
[place] [address] Care Team Providers Care Cane Flume Chute Operator Name Role Phone Paulino Finley MD Primary Care Provider [phone] Reason for Visit * Reason Onset Date Comments Follow-up 08/11/2023 S/p first chemo Encounter Details Date Type Department Care Team (Late st Contact Info) Description 08/11/2023 Telephone Hematology/Oncology at [address] [phone] Shad Hernandez RN Follow-up (S/p first chemo [...] aware of when to remove. Reinforced to patient/care-surveyor helper rod to call facility 31/05 with any new/worsening [...] AM EDT Office Visit Hematology/Oncology at [address] [phone] Dmitry Bhatti MD [facility] DR [place] [address] Ellen Mcrae APRN [facility] [place] [address] 01/30/2025 11:30 AM EDT Infusion Hematology Oncology at [address] [phone] documented as of this encounter Visit Diagnoses Not on filedocumented in this encounter Care Teams Cane Flume Chute Operator Relationship Specialty Start Date End Date Paulino Finley MD [address] [place] [address] PCP - General Emergency Medicine 09/11/21 documented as of this encounter
--- OUTSIDE RECORDS SUMMARY | 2024-12-05 14:08 | XMS_ITS | Encounter Summary ---
Author Organization [facility] [place] [address] Care Team Providers Care Poker Supervisor Name Role Phone Paulino Finley MD Primary Care Provider [phone] Encounter Details Date Type Department Care Team [...] 11:00 AM EDT Office Visit Hematology/Oncology at [address] [phone] Dmitry Bhatti MD [facility] DR [place] [address] Ellen Mcrae APRN [facility] [place] [address] 01/30/2025 11:30 AM EDT Infusion Hematology Oncology at [address] [phone] documented as of this encounter Visit Diagnoses Not on filedocumented in this encounter Care Teams Poker Supervisor Relationship Specialty Start Date End Date Paulino Finley MD [address] [place] [address] PCP - General Emergency Medicine 09/11/21 documented as of this encounter
--- OUTSIDE RECORDS SUMMARY | 2024-12-05 14:08 | XMS_ITS | Encounter Summary ---
[place] [address] Care Team Providers Care Pipe Fitter Welding Name Role Phone Paulino Finley MD Primary Care Provider [phone] Reason for Visit * Reason Onset Date Comments Public Health Screening 09/03/2023 COVID Encounter Details Date Type Department Care Team (Late st Contact Info) Description 09/03/2023 Telephone Hematology/Oncology at [address] [phone] Meghan Odonnell RN Public Health Screening (COVID) [...] notes frequent urination. Saw Dr. Phelps at [facility] urology yesterday, they had a planned [...] a flu/cold medication? Best call back number [phone] documented in this encounter Plan of Treatment Upcoming Encounters Date Type Department Care Team (Late st Contact Info) Description 01/30/2025 11:00 AM EDT Office Visit Hematology/Oncology at [address] [phone] Dmitry Bhatti MD [facility] DR HEMATOLOGY [place] [address] Ellen Mcrae APRN [facility] [place] [address] 01/30/2025 11:30 AM EDT Infusion Hematology Oncology at [address] [phone] documented as of this encounter Visit Diagnoses Not on filedocumented in this encounter Care Teams Pipe Fitter Welding Relationship Specialty Start Date End Date Paulino Finley MD [address] [place] [address] PCP - General Emergency Medicine 09/11/21 documented as of this encounter
--- OUTSIDE RECORDS SUMMARY | 2024-12-05 14:08 | XMS_ITS | Encounter Summary ---
[place] [address] Care Team Providers Care Residential Manager Name Role Phone Paulino Finley MD Primary Care Provider [phone] Encounter Details Date Type Department Care Team (Late Contact Info) Description 08/09/2023 Notes [place] [address] Casi Dong Social History Tobacco Use Types [...] 11:00 AM EDT Office Visit Hematology/Oncology at [address] [phone] Dmitry Bhatti MD [facility] DR HEMATOLOGY [place] [address] Ellen Mcrae APRN [facility] [place] [address] 01/30/2025 11:30 AM EDT Infusion Hematology Oncology at [address] [phone] documented as of this encounter Visit Diagnoses Not on filedocumented in this encounter Care Teams Residential Manager Relationship Specialty Start Date End Date Paulino Finley MD [address] [place] [address] PCP - General Emergency Medicine 09/11/21 documented as of this encounter
--- OUTSIDE RECORDS SUMMARY | 2024-12-05 14:08 | XMS_ITS | Encounter Summary ---
[place] [address] Care Team Providers Care New Business Clerk Name Role Phone Paulino Finley MD Primary Care Provider [phone] Reason for Visit * Reason Onset Date Comments Follow-up 08/16/2023 Encounter Details Date Type Department Care Team (Late st Contact Info) Description 08/16/2023 Telephone Hematology/Oncology at [address] [phone] Asuncion Valencia RN Follow-up Social [...] our office if his symptoms return, call [facility] ([phone]) and ask to speak with the provider manager non profit if it happens to be the evening [...] achy and having diarrhea and stomach pain. intravenous therapy nurse Note Diagnosis: Metastatic Prostate CA Treatment: C1D1 [...] and fluids without issue. Nausea- None Dizziness/lightheaded: [place] some lightheadedness this weekend and today. Changing positions slowly. Reddick body aches over the weekend, this is [...] AM EDT Office Visit Hematology/Oncology at [address] [phone] Dmitry Bhatti MD [facility] [address] [place] [address] Ellen Mcrae APRN [facility] [place] [address] 01/30/2025 11:30 AM EDT Infusion Hematology Oncology at [address] [phone] documented as of this encounter Visit Diagnoses Not on filedocumented in this encounter Care Teams New Business Clerk Relationship Specialty Start Date End Date Paulino Finley MD [address] [place] [address] PCP - General Emergency Medicine 09/11/21 documented as of this encounter
--- OUTSIDE RECORDS SUMMARY | 2024-12-05 14:08 | XMS_ITS | Encounter Summary ---
Author Organization [facility] [place] [address] Care Team Providers Care Rent Collector Name Role Phone Paulino Finley MD Primary Care Provider [phone] Encounter Details Date Type Department Care Team [...] 11:00 AM EDT Office Visit Hematology/Oncology at [address] [phone] Dmitry Bhatti MD [facility] [place] [address] Ellen Mcrae APRN [facility] [place] [place] [address] 01/30/2025 11:30 AM EDT Infusion Hematology Oncology at [address] [phone] documented as of this encounter Visit Diagnoses Not on filedocumented in this encounter Care Teams Rent Collector Relationship Specialty Start Date End Date Paulino Finley MD [address] [place] [address] PCP - General Emergency Medicine 09/11/21 documented as of this encounter
--- OUTSIDE RECORDS SUMMARY | 2024-12-05 14:08 | XMS_ITS | Encounter Summary ---
[place] [address] Care Team Providers Care Bomb Loader Name Role Phone Paulino Finley MD Primary Care Provider [phone] Reason for Visit * Reason Comments Chemotherapy Cycle 1, Day 1; Doce taxel * Treatment/Therapy Plan Authorization (Routine) - Authorized Specialty Diagnoses / Procedures Referred By Contbela t Referred To Contact Hematology and Oncology Diagnoses Prostate cancer metastatic to multiple sites Procedures TC LEUPROLIDE ACETATE 7.5MG, FOR DEPOST SUSPENSION (LUPRON DEPOT) [id number] LUPRON DEPOT Dmitry Bhatti MD [address] [place] [address] DR HEMATOLOGY [place] [address] Dmitry Bhatti MD [address] [place] [address] DR HEMATOLOGY [place] [address] Referral ID Status Reason Start Date Expiration Date V isits Requested Visits Authorized [id number] Authorized 07/08/2023 08/01/2025 101 Encounter Details Date Type Department Care Team (Late st Contact Info) Description 08/10/2023 10:00 AM EDT Infusion Hematology Oncology at [address] [phone] Prostate cancer metastatic to multiple sites; Malignant [...] clinic hours (8am-5pm Wednesday-Wednesday): pt. can call [phone] with questions or concerns. After clinic hours (5pm-8am Wednesday-Wednesday and weekends) pt can call [phone] and ask for the mold tooling technician/oncologist interventional radiology technologist. Jose M Cristal verbalized understanding of [...] AM EDT Office Visit Hematology/Oncology at [address] [phone] Dmitry Bhatti MD [facility] DR HEMATOLOGY [place] [address] Ellen Mcrae APRN [facility] [place] [address] 01/30/2025 11:30 AM EDT Infusion Hematology Oncology at [address] [phone] documented as of this encounter Visit Diagnoses [...] mL/hr documented in this encounter Care Teams Bomb Loader Relationship Specialty Start Date End Date Paulino Finley MD [address] [place] [address] PCP - General Emergency Medicine 09/11/21 documented as of this encounter
--- OUTSIDE RECORDS SUMMARY | 2024-12-05 14:08 | XMS_ITS | Encounter Summary ---
[place] [address] Care Team Providers Care Honey Processor Name Role Phone Paulino Finley MD Primary Care Provider [phone] Encounter Details Date Type Department Care Team (Latest Contact Info) Description 12/02/2023 10:00 AM EST Clinical Support Audiology at [address] [phone] Ester Cardenas Asymmetrical sensorineural hearing loss Social [...] and domes. Removed debris from microphones and driver trainer port. Replaced driver trainer wire, left. Following the above measures, listening check of the hearing aids then found them to be in good working order. When speaking to patient left hearing aid started crackling. Brought hearing aid back and replaced the driver trainer. Crackling stopped but again started back up [...] R Casing Color White White Serial Number [id number] Battery Size Rechargeable Rechargeable Invoice number/date [id number] 08/24/19 [id number] 08/24/19 Other Comments PROGRAM/SETTINGS Fitting Algorithm DSL [...] HELENA / Dome specifics Size 03 M driver trainer small vented dome Size 03 M driver trainer small vented dome Impression Date Invoice number/date Other Comments ACCESSORIES Make/Model (color) Serial Number Warranty date Invoice number/date Settings Other Comments documented in this encounter Plan of Treatment Upcoming Encounters Date Type Department Care Team (Late st Contact Info) Description 01/30/2025 11:00 AM EDT Office Visit Hematology/Oncology at [address] [phone] Dmitry Bhatti MD [facility] HEMATOLOGY [place] [address] Ellen Mcrae APRN [facility] [place] [address] 01/30/2025 11:30 AM EDT Infusion Hematology Oncology at [address] [phone] documented as of this encounter Visit Diagnoses Diagnosis Asymmetrical sensorineural hearing loss Sensorineural hearing loss, asymmetrical documented in this encounter Care Teams Honey Processor Relationship Specialty Start Date End Date Paulino Finley MD [address] [place] [address] PCP - General Emergency Medicine 09/11/21 documented as of this encounter
--- OUTSIDE RECORDS SUMMARY | 2024-12-05 14:08 | XMS_ITS | Encounter Summary ---
Author Organization [facility] [place] [address] Care Team Providers Care Fruit Or Nut Picker Name Role Phone Paulino Finley MD Primary Care Provider [phone] Encounter Details Date Type Department Care Team (Late st Contact Info) Description 09/21/2023 11:30 AM EST Office Visit Hematology/Oncology at [address] [phone] Ellen Mcrae APRN [facility] [place] [address] Prostate cancer metastatic to multiple sites; Hematuria, [...] here with his today. They live in [place]. Medications: Your Medications Accurate as of September [...] adenocarcinoma, involving 1 of 1 core. - [place] score 4 + 5 = 9 (grade group 5), tumor extent 1 mm (15% of core). - Perineural invasion is identified. C. PROSTATE, RIGHT MID LATERAL, NEEDLE CORE BIOPSY: - Prostatic adenocarcinoma, involving 1 of 1 core. - [place] score 5 + 4 = 9 (grade group 5), tumor extent 10 mm (80% of core). D. PROSTATE, RIGHT MID MEDIAL, NEEDLE CORE BIOPSY: - Prostatic adenocarcinoma, involving 1 of 1 core. - [place] score 4 + 5 = 9 (grade [...] adenocarcinoma, involving 1 of 1 core. - [place] score 4 + 5 = 9 (grade [...] Food and Drug Administration approved darolutamide (Nubeqa, [employer] tablets in combination with docetaxel for adult patients with metastatic hormone-sensitive prostate cancer (mHSPC). Efficacy was based on ARASENS ([id number]), a randomized, multicenter, double- blind, placebo-controlled clinical trial in 1306 patients with mHSPC. Patients were randomized to receive either darolutamide 600 mg orally twice daily plus docetaxel 75 mg/m2 intravenously administered every 3 weeks forup to 6 cycles or docetaxel plus placebo. All patients received a gonadotropin-releasing hormone analog concurrently or had a bilateral orchiectomy. The primary efficacy measure was overall survival (OS). Hdsc-xx-gemn progression was an additional efficacy measure. Median OS was not reached (NR) (95% CI: NR, NR) in the darolutamide plus docetaxelarm and 48.9 months (95% CI: 44.4, NR) in docetaxel plus placebo arm (HR 0.68; 95% CI: 0.57, 0.80; p<0.0001). Treatment with darolutamide and docetaxel resulted in a statistically significant delay in tkks-sa-yetl progression (HR 0.79; 95% CI: 0.66, 0.95; [...] AM EDT Office Visit Hematology/Oncology at [address] [phone] Dmitry Bhatti MD [facility] [place] [address] Ellen Mcrae APRN [facility] [place] [address] 01/30/2025 11:30 AM EDT Infusion Hematology Oncology at [address] [phone] documented as of this encounter Visit Diagnoses Diagnosis Prostate cancer metastatic to multiple sites Malignant neoplasm of prostate Hematuria, unspecified type documented in this encounter Care Teams Fruit Or Nut Picker Relationship Specialty Start Date End Date Paulino Finley MD [address] [place] [address] PCP - General Emergency Medicine 09/11/21 documented as of this encounter
--- OUTSIDE RECORDS SUMMARY | 2024-12-05 14:08 | XMS_ITS | Encounter Summary ---
Author Organization [facility] [place] [address] Care Team Providers Care Personal Clothing Laundry Aide Name Role Phone Paulino Finley MD Primary Care Provider [phone] Encounter Details Date Type Department Care Team (Late st Contact Info) Description 08/04/2023 Notes [place] [address] Casi Dong Social History Tobacco Use Types [...] receive his Nubeqa at no cost through [email or web address] until 11/07/2023. * Casi Dong - 08/04/2023 3:46 PM EDT 08/05/2023- PROGRAM CALLED BACK- patient is NOT yet approved. The program route sales representative dhara on08/04/2023. They DO NOT have a determination at this time. documented in this encounter Plan of Treatment Upcoming Encounters Date Type Department Care Team (Late st Contact Info) Description 01/30/2025 11:00 AM EDT Office Visit Hematology/Oncology at [address] [phone] Dmitry Bhatti MD [facility] DR HEMATOLOGY [place] [address] Ellen Mcrae APRN [facility] [place] [address] 01/30/2025 11:30 AM EDT Infusion Hematology Oncology at [address] [phone] documented as of this encounter Visit Diagnoses Not on filedocumented in this encounter Care Teams Personal Clothing Laundry Aide Relationship Specialty Start Date End Date Paulino Finley MD [address] [place] [address] PCP - General Emergency Medicine 09/11/21 documented as of this encounter
--- OUTSIDE RECORDS SUMMARY | 2024-12-05 14:08 | XMS_ITS | Encounter Summary ---
Author Organization [facility] [place] [address] Care Team Providers Care Varnish Melter Helper Name Role Phone Paulino Finley MD Primary Care Provider [phone] Encounter Details Date Type Department Care Team (Late st Contact Info) Description 09/23/2023 Notes Only Hematology/Oncology at [address] [phone] Ellen Mcrae APRN [facility] [place] [address] Social History Tobacco Use Types Packs/Day Years [...] AM EDT Office Visit Hematology/Oncology at [address] [phone] Dmitry Bhatti MD [facility] [place] [address] Ellen Mcrae APRN [facility] [place] [address] 01/30/2025 11:30 AM EDT Infusion Hematology Oncology at [address] [phone] documented as of this encounter Visit Diagnoses Not on filedocumented in this encounter Care Teams Varnish Melter Helper Relationship Specialty Start Date End Date Paulino Finley MD [address] [place] [address] PCP - General Emergency Medicine 09/11/21 documented as of this encounter
--- OUTSIDE RECORDS SUMMARY | 2024-12-05 14:08 | XMS_ITS | Encounter Summary ---
[place] [address] Care Team Providers Care Optical Systems Engineer Name Role Phone Paulino Finley MD Primary Care Provider [phone] Reason for Visit * Reason Onset Date Comments Questions 11/25/2023 Encounter Details Date Type Department Care Team (Late st Contact Info) Description 11/25/2023 Telephone Hematology/Oncology at [address] [phone] Shad Hernandez, BRENNA Questions Social [...] 8:38 AM EST Called and reported to [facility] that ABT of either type to [...] Webb Sent: 11/24/2023 8:48 AM EST To: [facility] Hem Onc Nurse Irene from [facility] called. They need to make know if any of the antibiotics they prescribefor him will have any counter effects with his current medications. [phone] documented in this encounter Plan of Treatment Upcoming Encounters Date Type Department Care Team (Late st Contact Info) Description 01/30/2025 11:00 AM EDT Office Visit Hematology/Oncology at [address] [phone] Dmitry Bhatti MD [facility] DR [place] [address] Ellen Mcrae APRN [facility] [place] [address] 01/30/2025 11:30 AM EDT Infusion Hematology Oncology at [address] [phone] documented as of this encounter Visit Diagnoses Not on filedocumented in this encounter Care Teams Optical Systems Engineer Relationship Specialty Start Date End Date Paulino Finley MD [address] [place] [address] PCP - General Emergency Medicine 09/11/21 documented as of this encounter
--- OUTSIDE RECORDS SUMMARY | 2024-12-05 14:08 | XMS_ITS | Encounter Summary ---
Author Organization [facility] [place] [address] Care Team Providers Care Environmental Engineering Professor Name Role Phone Paulino Finley MD Primary Care Provider [phone] Encounter Details Date Type Department Care Team [...] AM EDT Office Visit Hematology/Oncology at [address] [phone] Dmitry Bhatti MD [facility] DR [place] [address] Ellen Mcrae APRN [facility] [place] [place] [address] 01/30/2025 11:30 AM EDT Infusion Hematology Oncology at [address] [phone] documented as of this encounter Visit Diagnoses Not on filedocumented in this encounter Care Teams Environmental Engineering Professor Relationship Specialty Start Date End Date Paulino Finley MD [address] [place] [address] PCP - General Emergency Medicine 09/11/21 documented as of this encounter
--- OUTSIDE RECORDS SUMMARY | 2024-12-05 14:08 | XMS_ITS | Encounter Summary ---
[place] [address] Care Team Providers Care Pcmh Specialist Name Role Phone Paulino Finley MD Primary Care Provider [phone] Encounter Details Date Type Department Care Team (Late st Contact Info) Description 08/11/2023 Telephone Hematology [place] [phone] Jennifer Francois, RN Social History Tobacco Use [...] Note 08/11/2023 Jose Bee, 1950 Jose Bee ([id number]) was prescribed Nebeqa by Dr. Bhatti Patient [...] receive his Nubeqa at no cost through [employer] until 08/06/2024. Message from Daniella Coombs RN sent at 07/28/2023 9:34 AM EDT ----- Regarding: FW: Nubeqa chemo call MAP waiting on MD portion- email to Paulino asking them to sign LOLITA ----- Message ----- From: Daniella Coombs RN Sent: 07/28/2023 12:00 AM EDT To: [facility] Hem Onc Triage Prostate Subject: FW: Nubeqa chemo call Application mailed back to on Wednesday per pt /MAP hadn't' received ----- Message ----- From: Daniella Coombs RN Sent: 07/21/2023 12:00 AM EDT To: [facility] Hem Onc Triage Prostate Subject: FW: Nubeqa chemo call Application sent to patient 07/13 by [facility] ----- Message ----- From: Daniella Coombs RN Sent: 07/15/2023 12:00 AM EDT To: [facility] Hem Onc Triage Prostate Subject: Nubeqa chemo call To [facility] for high co-pay documented in this encounter Plan of Treatment Upcoming Encounters Date Type Department Care Team (Late st Contact Info) Description 01/30/2025 11:00 AM EDT Office Visit Hematology/Oncology at [address] [phone] Dmitry Bhatti MD [facility] DR [place] [address] Ellen Mcrae APRN [facility] [place] [address] 01/30/2025 11:30 AM EDT Infusion Hematology Oncology at [address] [phone] documented as of this encounter Visit Diagnoses Not on filedocumented in this encounter Care Teams Pcmh Specialist Relationship Specialty Start Date End Date Paulino Finley MD [address] [place] [address] PCP - General Emergency Medicine 09/11/21 documented as of this encounter
--- OUTSIDE RECORDS SUMMARY | 2024-12-05 14:08 | XMS_ITS | Encounter Summary ---
Author Organization [facility] [place] [address] Care Team Providers Care Converter Operator Name Role Phone Paulino Finley MD Primary Care Provider [phone] Encounter Details Date Type Department Care [...] 11:00 AM EDT Office Visit Hematology/Oncology at [address] [phone] Dmitry Bhatti MD [facility] [place] [address] Ellen Mcrae APRN [facility] [place] [address] 01/30/2025 11:30 AM EDT Infusion Hematology Oncology at [address] [phone] documented as of this encounter Visit Diagnoses Not on filedocumented in this encounter Care Teams Converter Operator Relationship Specialty Start Date End Date Paulino Finley MD [address] [place] [address] PCP - General Emergency Medicine 09/11/21 documented as of this encounter
--- OUTSIDE RECORDS SUMMARY | 2024-12-05 14:08 | XMS_ITS | Encounter Summary ---
Author Organization [facility] [place] [address] Care Team Providers Care Retail Team Leader Name Role Phone Paulino Finley MD Primary Care Provider [phone] Encounter Details Date Type Department Care Team [...] 11:00 AM EDT Office Visit Hematology/Oncology at [address] [phone] Dmitry Bhatti MD [facility] [address] [place] [address] Ellen Mcrae APRN [facility] [place] [place] [address] 01/30/2025 11:30 AM EDT Infusion Hematology Oncology at [address] [phone] documented as of this encounter Visit Diagnoses Not on filedocumented in this encounter Care Teams Retail Team Leader Relationship Specialty Start Date End Date Paulino Finley MD [address] [place] [address] PCP - General Emergency Medicine 09/11/21 documented as of this encounter
--- OUTSIDE RECORDS SUMMARY | 2024-12-05 14:08 | XMS_ITS | Encounter Summary ---
[place] [address] Care Team Providers Care Puller Out Name Role Phone Paulino Finley MD Primary Care Provider [phone] Reason for Visit * Reason Comments Chemotherapy [...] DOCETAXEL J2506 NEULASTA ONPRO Dmitry Bhatti MD [address] [place] [address] DR [place] [address] Dmitry Bhatti MD [address] [place] [address] DR [place]EM[place] [address] Referral ID Status Reason Start Date Expiration Date Visits Re quested Visits Authorized [id number] Closed 07/08/2023 07/07/2024 99 99 Encounter Details Date Type Department Care Team (Late st Contact Info) Description 09/21/2023 12:00 PM EST Infusion Hematology Oncology at [address] [phone] Prostate cancer metastatic to multiple sites; Malignant [...] AM EDT Office Visit Hematology/Oncology at [address] [phone] Dmitry Bhatti MD [facility] DR [place] [address] Ellen Mcrae APRN [facility] [place] [address] 01/30/2025 11:30 AM EDT Infusion Hematology Oncology at [address] [phone] documented as of this encounter Visit Diagnoses [...] mL/hr documented in this encounter Care Teams Puller Out Relationship Specialty Start Date End Date Paulino Finley MD [address] [place] [address] PCP - General Emergency Medicine 09/11/21 documented as of this encounter
--- OUTSIDE RECORDS SUMMARY | 2024-12-05 14:08 | XMS_ITS | Encounter Summary ---
Author Organization [facility] [place] [address] Care Team Providers Care Human Resources Department Supervisor Name Role Phone Paulino Finley MD Primary Care Provider [phone] Encounter Details Date Type Department Care Team [...] 11:00 AM EDT Office Visit Hematology/Oncology at [address] [phone] Dmitry Bhatti MD [facility] DR [place] [address] Ellen Mcrae APRN [facility] [place] [address] 01/30/2025 11:30 AM EDT Infusion Hematology Oncology at [address] [phone] documented as of this encounter Visit Diagnoses Not on filedocumented in this encounter Care Teams Human Resources Department Supervisor Relationship Specialty Start Date End Date Paulino Finley MD [address] [place] [address] PCP - General Emergency Medicine 09/11/21 documented as of this encounter
--- OUTSIDE RECORDS SUMMARY | 2024-12-05 14:08 | XMS_ITS | Encounter Summary ---
Author Organization [place] [address] Care Team Providers Care Tower Equipment Repairer Name Role Phone Paulino Finley MD Primary Care Provider [phone] Encounter Details Date Type Department Care Team (Late Contact Info) Description 09/09/2023 Notes Only Hematology/Oncology at [address] [phone] Dina Schrader APRN Social History Tobacco Use Types Packs/Day Years [...] 11:00 AM EDT Office Visit Hematology/Oncology at [address] [phone] Dmitry Bhatti MD [facility] DR [place] [address] Ellen Mcrae APRN [facility] [place] [address] 01/30/2025 11:30 AM EDT Infusion Hematology Oncology at [address] [phone] documented as of this encounter Visit Diagnoses Not on filedocumented in this encounter Care Teams Tower Equipment Repairer Relationship Specialty Start Date End Date Paulino Finley MD [address] [place] [address] PCP - General Emergency Medicine 09/11/21 documented as of this encounter
--- OUTSIDE RECORDS SUMMARY | 2024-12-05 14:08 | XMS_ITS | Encounter Summary ---
[place] [address] Care Team Providers Care Smoking Pipe Driller And Threader Name Role Phone Paulino Finley MD Primary Care Provider [phone] Reason for Visit * Reason Onset Date Comments Eye Problem 11/19/2023 Encounter Details Date Type Department Care Team (Late st Contact Info) Description 11/19/2023 Telephone Hematology/Oncology at [address] [phone] Shad Hernandez RN Eye Problem [...] who reports he went to PCP in [place] and believe he hasstye and advised warm [...] make an appointment with his PCP in [place] for today, hopefully. Please call him back and answer any concerns he has about this. [phone] documented in this encounter Plan of Treatment Upcoming Encounters Date Type Department Care Team (Late st Contact Info) Description 01/30/2025 11:00 AM EDT Office Visit Hematology/Oncology at [address] [phone] [facility] [place] [address] [facility] [place] [place] [address] 01/30/2025 11:30 AM EDT Infusion Hematology Oncology at [address] [phone] documented as of this encounter Visit Diagnoses Not on filedocumented in this encounter Care Teams Smoking Pipe Driller And Threader Relationship Specialty Start Date End Date Paulino Finley MD [address] [place] [address] PCP - General Emergency Medicine 09/11/21 documented as of this encounter
--- OUTSIDE RECORDS SUMMARY | 2024-12-05 14:08 | XMS_ITS | Encounter Summary ---
Author Organization [facility] [place] [address] Care Team Providers Care Ditch Repairer Name Role Phone Paulino Finley MD Primary Care Provider [phone] Encounter Details Date Type Department Care Team [...] 11:00 AM EDT Office Visit Hematology/Oncology at [address] [phone] Dmitry Bhatti MD [facility] DR HEMATOLOGY [place] [address] Ellen Mcrae APRN [facility] [place] [address] 01/30/2025 11:30 AM EDT Infusion Hematology Oncology at [address] [phone] documented as of this encounter Visit Diagnoses Not on filedocumented in this encounter Care Teams Ditch Repairer Relationship Specialty Start Date End Date Paulino Finley MD [address] [place] [address] PCP - General Emergency Medicine 09/11/21 documented as of this encounter
--- OUTSIDE RECORDS SUMMARY | 2024-12-05 14:08 | XMS_ITS | Encounter Summary ---
Author Organization [facility] [place] [address] Care Team Providers Care Portfolio Assistant Name Role Phone Paulino Finley MD Primary Care Provider [phone] Encounter Details Date Type Department Care Team [...] AM EDT Office Visit Hematology/Oncology at [address] [phone] Dmitry Bhatti MD [facility] DR HEMATOLOGY [place] [address] Ellen Mcrae APRN [facility] [place] [address] 01/30/2025 11:30 AM EDT Infusion Hematology Oncology at [address] [phone] documented as of this encounter Visit Diagnoses Not on filedocumented in this encounter Care Teams Portfolio Assistant Relationship Specialty Start Date End Date Paulino Finley MD [address] [place] [address] PCP - General Emergency Medicine 09/11/21 documented as of this encounter
--- OUTSIDE RECORDS SUMMARY | 2024-12-05 14:08 | XMS_ITS | Encounter Summary ---
[place] [address] Care Team Providers Care Fermenting Cellars Receiver Name Role Phone Paulino Finley MD Primary Care Provider [phone] Encounter Details Date Type Department Care Team (Late st Contact Info) Description 11/26/2023 Telephone Hematology [place] [phone] [place] Social History Tobacco Use Types [...] PM EST Procedure Prior Authorization Procedure/Cpt: Cpt 42552, 19345 Rationale: C61 Health Plan: [facility] Authorizing Vendor: Service Order/ Authorization #: Effective Date: 11/26/2023 - 01/24/2024 Status: Approved Rendering Facility: [facility] [id number] PA not required documented in this encounter Plan of Treatment Upcoming Encounters Date Type Department Care Team (Late st Contact Info) Description 01/30/2025 11:00 AM EDT Office Visit Hematology/Oncology at [address] [phone] Dmitry Bhatti MD [facility] [place] [address] Ellen Mcrae APRN [facility] [place] [address] 01/30/2025 11:30 AM EDT Infusion Hematology Oncology at [address] [phone] documented as of this encounter Visit Diagnoses Not on filedocumented in this encounter Care Teams Fermenting Cellars Receiver Relationship Specialty Start Date End Date Paulino Finley MD [address] [place] [address] PCP - General Emergency Medicine 09/11/21 documented as of this encounter
--- OUTSIDE RECORDS SUMMARY | 2024-12-05 14:08 | XMS_ITS | Encounter Summary ---
Author Organization [facility] [place] [address] Care Team Providers Care Medicine Aide Name Role Phone Paulino Finley MD Primary Care Provider [phone] Reason for Visit * Reason Onset Date Comments Other 08/11/2023 Encounter Details Date Type Department Care Team (Late st Contact Info) Description 08/11/2023 Telephone Hematology/Oncology at [address] [phone] Shad Hernandez RN Other Social [...] 11:00 AM EDT Office Visit Hematology/Oncology at [address] [phone] Dmitry Bhatti MD [facility] DR HEMATOLOGY [place] [address] Ellen Mcrae APRN [facility] [place] [address] 01/30/2025 11:30 AM EDT Infusion Hematology Oncology at [address] [phone] documented as of this encounter Visit Diagnoses Not on filedocumented in this encounter Care Teams Medicine Aide Relationship Specialty Start Date End Date Paulino Finley MD [address] [place] [address] PCP - General Emergency Medicine 09/11/21 documented as of this encounter
--- OUTSIDE RECORDS SUMMARY | 2024-12-05 14:08 | XMS_ITS | Encounter Summary ---
Author Organization [facility] Address [facility] [place] [address] Care Team Providers Care Speech Writer Name Role Phone Paulino Finley MD Primary Care Provider [phone] Reason for Visit * Reason Comments Follow-up Throat is ok, no con cerns at this time. Encounter Details Date Type Department Care Team (Late st Contact Info) Description 09/13/2023 10:00 AM EST Office [place] [phone] Sriram Contreras MD [facility] [place] [address] Cancer of base of tongue Social History [...] the [employer] and uploaded to the [employer] Data Processing Supervisor. 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
--- OUTSIDE RECORDS SUMMARY | 2024-12-05 14:08 | XMS_ITS | Encounter Summary ---
Author Organization [facility] [place] [address] Care Team Providers Care Doctor Of Veterinary Medicine Name Role Phone Paulino Finley MD Primary Care Provider [phone] Encounter Details Date Type Department Care Team (Late st Contact Info) Description 11/02/2023 1:00 PM EST Office Visit Hematology/Oncology at [address] [phone] Dmitry Bhatti MD [facility] DR HEMATOLOGY [place] [address] Ellen Mcrae APRN [facility] [place] [address] Prostate cancer metastatic to multiple sites; Encounter [...] encounter Progress Notes * Ellen Mcrae Darnell, OVERNIGHT ASSOCIATE - 11/02/2023 1:00 PM EST Images from [...] on May 13. Pathology revealed prostatic adenocarcinoma [place] 5+4. Staging CT abdomen and pelvis and [...] here with his today. They live in [place]. Medications: Your Medications Accurate as of November [...] adenocarcinoma, involving 1 of 1 core. - [place] score 4 + 5 = 9 (grade group 5), tumor extent 1 mm (15% of core). - Perineural invasion is identified. C. PROSTATE, RIGHT MID LATERAL, NEEDLE CORE BIOPSY: - Prostatic adenocarcinoma, involving 1 of 1 core. - [place] score 5 + 4 = 9 (grade [...] 3 = 7 (grade group 3), 70% [place] pattern 4, tumor extent 6 mm (40% of core). - Cribriform [place] pattern 4 is present. I. PROSTATE, LEFT MID LATERAL, NEEDLE CORE BIOPSY: - Prostatic adenocarcinoma, involving 1 of 1 core. - [place] score 3 + 5 = 8 (grade group 4), tumor extent 4 mm (30% of core). J. PROSTATE, LEFT MID MEDIAL, NEEDLE CORE BIOPSY: - Prostatic adenocarcinoma, involving 1 of 1 core. - [place] score 4 + 5 = 9 (grade [...] Food and Drug Administration approved darolutamide (Nubeqa, [employer] tablets in combination with docetaxel for adult patients with metastatic hormone-sensitive prostate cancer (mHSPC). Efficacy was based on ARASENS ([id number]), a randomized, multicenter, double- blind, placebo-controlled clinical trial in 1306 patients with mHSPC. Patients were randomized to receive either darolutamide 600 mg orally twice daily plus docetaxel 75 mg/m2 intravenously administered every 3 weeks forup to 6 cycles or docetaxel plus placebo. All patients received a gonadotropin-releasing hormone analog concurrently or had a bilateral orchiectomy. The primary efficacy measure was overall survival (OS). Pxas-zq-wkpa progression was an additional efficacy measure. Median OS was not reached (NR) (95% CI: NR, NR) in the darolutamide plus docetaxelarm and 48.9 months (95% CI: 44.4, NR) in docetaxel plus placebo arm (HR 0.68; 95% CI: 0.57, 0.80; p<0.0001). Treatment with darolutamide and docetaxel resulted in a statistically significant delay in kscd-qo-dmyt progression (HR 0.79; 95% CI: 0.66, 0.95; [...] AM EDT Office Visit Hematology/Oncology at [address] [phone] Dmitry Bhatti MD [facility] DR HEMATOLOGY [place] [address] Ellen Mcrae APRN [facility] [place] [address] 01/30/2025 11:30 AM EDT Infusion Hematology Oncology at [address] [phone] documented as of this encounter Visit Diagnoses Diagnosis Prostate cancer metastatic to multiple sites Malignant neoplasm of prostate Encounter for chemotherapy management Fatigue, unspecified type documented in this encounter Care Teams Doctor Of Veterinary Medicine Relationship Specialty Start Date End Date Paulino Finley MD [address] [place] [address] PCP - General Emergency Medicine 09/11/21 documented as of this encounter
--- OUTSIDE RECORDS SUMMARY | 2024-12-05 14:08 | XMS_ITS | Encounter Summary ---
Author Organization [facility] [place] [address] Care Team Providers Care Hat Body Inspector Name Role Phone Paulino Finley MD Primary Care Provider [phone] Encounter Details Date Type Department Care Team (Late st Contact Info) Description 11/23/2023 1:00 PM EST Office Visit Hematology/Oncology at [address] [phone] Dmitry Bhatti MD [facility] DR HEMATOLOGY [place] [address] Ellen Mcrae APRN [facility] [place] [address] Prostate cancer metastatic to multiple sites (Primary [...] in April 2023.Was evaluated by urologist Dr. Pehlps who performed prostate biopsy on May 13. Pathology revealed prostatic adenocarcinoma [place] 5+4. Staging CT abdomen and pelvis and [...] here with his today. They live in [place]. Medications: Your Medications Accurate as of November [...] adenocarcinoma, involving 1 of 1 core. - [place] score 4 + 5 = 9 (grade group 5), tumor extent 1 mm (15% of core). - Perineural invasion is identified. C. PROSTATE, RIGHT MID LATERAL, NEEDLE CORE BIOPSY: - Prostatic adenocarcinoma, involving 1 of 1 core. - [place] score 5 + 4 = 9 (grade group 5), tumor extent 10 mm (80% of core). D. PROSTATE, RIGHT MID MEDIAL, NEEDLE CORE BIOPSY: - Prostatic adenocarcinoma, involving 1 of 1 core. - [place] score 4 + 5 = 9 (grade group 5), tumor extent 9 mm (80% of core). E. PROSTATE, RIGHT APEX LATERAL, NEEDLE CORE BIOPSY: - Prostatic adenocarcinoma, involving 1 of 1 core. - [place] score 5 + 4 = 9 (grade group 5), tumor extent 16 mm (100% of core). - Perineural invasion is identified. F. PROSTATE, RIGHT APEX MEDIAL, NEEDLE CORE BIOPSY: - Prostatic adenocarcinoma, involving 1 of 1 core. - [place] score 5 + 4 = 9 (grade group 5), tumor extent 15 mm (95% of core). - Perineural invasion is identified. G. PROSTATE, LEFT BASE LATERAL, NEEDLE CORE BIOPSY: - Atypical small acinar proliferation (LOLITA), highly suspicious for minute focus (0.1 mm) of prostatic adenocarcinoma. H. PROSTATE, LEFT BASE MEDIAL, NEEDLE CORE BIOPSY: - Prostatic adenocarcinoma, involving 1 of 1 core. - [place] score 4 + 3 = 7 (grade group 3), 70% [place] pattern 4, tumor extent 6 mm (40% [...] adenocarcinoma, involving 1 of 1 core. - [place] score 4 + 5 = 9 (grade group 5), tumor extent 2 mm (15% of core). K. PROSTATE, LEFT APEX LATERAL, NEEDLE CORE BIOPSY: - Benign prostatic tissue. L. PROSTATE, LEFT APEX MEDIAL, NEEDLE CORE BIOPSY: - Prostatic adenocarcinoma, involving 1 of 1 core. - [place] score 5 + 4 = 9 (grade [...] Food and Drug Administration approved darolutamide (Nubeqa, [employer] tablets in combination with docetaxel for adult patients with metastatic hormone-sensitive prostate cancer (mHSPC). Efficacy was based on ARASENS ([id number]), a randomized, multicenter, double- blind, placebo-controlled clinical trial in 1306 patients with mHSPC. Patients were randomized to receive either darolutamide 600 mg orally twice daily plus docetaxel 75 mg/m2 intravenously administered every 3 weeks forup to 6 cycles or docetaxel plus placebo. All patients received a gonadotropin-releasing hormone analog concurrently or had a bilateral orchiectomy. The primary efficacy measure was overall survival (OS). Smsd-aw-pqri progression was an additional efficacy measure. Median OS was not reached (NR) (95% CI: NR, NR) in the darolutamide plus docetaxelarm and 48.9 months (95% CI: 44.4, NR) in docetaxel plus placebo arm (HR 0.68; 95% CI: 0.57, 0.80; p<0.0001). Treatment with darolutamide and docetaxel resulted in a statistically significant delay in qles-bz-iphg progression (HR 0.79; 95% CI: 0.66, 0.95; [...] AM EDT Office Visit Hematology/Oncology at [address] [phone] Dmitry Bhatti MD [facility] HEMATOLOGY [place] [address] Ellen Mcrae APRN [facility] [place] [address] 01/30/2025 11:30 AM EDT Infusion Hematology Oncology at [address] [phone] documented as of this encounter Visit Diagnoses Diagnosis Prostate cancer metastatic to multiple sites- Primary Malignant neoplasm of prostate Encounter for chemotherapy management Malignant neoplasm of prostate metastatic to bone Malignant neoplasm of prostate Fatigue, unspecified type Androgen deprivation therapy Encounter for therapeutic drug monitoring documented in this encounter Care Teams Hat Body Inspector Relationship Specialty Start Date End Date Paulino Finley MD [address] [place] [address] PCP - General Emergency Medicine 09/11/21 documented as of this encounter
--- OUTSIDE RECORDS SUMMARY | 2024-12-05 14:08 | XMS_ITS | Encounter Summary ---
Author Organization [facility] [place] [address] Care Team Providers Care Business Intelligence Reporting Analyst Name Role Phone Paulino Finley MD Primary Care Provider [phone] Encounter Details Date Type Department Care Team [...] 11:00 AM EDT Office Visit Hematology/Oncology at [address] [phone] Dmitry Bhatti MD [facility] DR [place] [address] Ellen Mcrae APRN [facility] [place] [address] 01/30/2025 11:30 AM EDT Infusion Hematology Oncology at [address] [phone] documented as of this encounter Visit Diagnoses Not on filedocumented in this encounter Care Teams Business Intelligence Reporting Analyst Relationship Specialty Start Date End Date Paulino Finley MD [address] [place] [address] PCP - General Emergency Medicine 09/11/21 documented as of this encounter
--- OUTSIDE RECORDS SUMMARY | 2024-12-05 14:08 | XMS_ITS | Encounter Summary ---
[place] [address] Care Team Providers Care Dental Office Manager Name Role Phone Paulino Finley MD Primary Care Provider [phone] Reason for Visit * Reason Comments Chemotherapy [...] DOCETAXEL [id number] NEULASTA ONPRO Dmitry Bhatti MD [address] [place] [address] [place] [address] Dmitry Bhatti MD [address] [place] [address] DR [place] [address] Referral ID Status Reason Start Date Expiration Date Visits Re quested Visits Authorized [id number] Closed 07/08/2023 07/07/2024 99 99 Encounter Details Date Type Department Care Team (Late st Contact Info) Description 11/23/2023 1:30 PM EST Infusion Hematology Oncology at [address] [phone] Prostate cancer metastatic to multiple sites; Malignant [...] 11:00 AM EDT Office Visit Hematology/Oncology at [address] [phone] Dmitry Bhatti MD [facility] [place] [address] Ellen Mcrae APRN [facility] [place] [address] 01/30/2025 11:30 AM EDT Infusion Hematology Oncology at [address] [phone] documented as of this encounter Visit Diagnoses [...] mL/hr documented in this encounter Care Teams Dental Office Manager Relationship Specialty Start Date End Date Paulino Finley MD [address] [place] [address] PCP - General Emergency Medicine 09/11/21 documented as of this encounter"
--- OUTSIDE RECORDS SUMMARY | 2024-12-05 14:08 | XMS_ITS | Encounter Summary ---
Author Organization [facility] [place] [address] Care Team Providers Care Commercial Green Building Designer Name Role Phone Paulino Finley MD Primary Care Provider [phone] Encounter Details Date Type Department Care Team [...] AM EDT Office Visit Hematology/Oncology at [address] [phone] Dmitry Bhatti MD [facility] DR HEMATOLOGY [place] [address] Ellen Mcrae APRN [facility] [place] [address] 01/30/2025 11:30 AM EDT Infusion Hematology Oncology at [address] [phone] documented as of this encounter Visit Diagnoses Not on filedocumented in this encounter Care Teams Commercial Green Building Designer Relationship Specialty Start Date End Date Paulino Finley MD [address] [place] [address] PCP - General Emergency Medicine 09/11/21 documented as of this encounter
--- OUTSIDE RECORDS SUMMARY | 2024-12-05 14:08 | XMS_ITS | Encounter Summary ---
Author Organization [facility] [place] [address] Care Team Providers Care Greige Mender Name Role Phone Paulino Finley MD Primary Care Provider [phone] Encounter Details Date Type Department Care Team (Late st Contact Info) Description 09/07/2023 Notes [place] [address] Casi Dong Social History Tobacco Use Types [...] 09/07/2023 9:55 AM EDT Call placed to [facility] [facility] regarding paperwork that Jose received about renewal. I confirmed that Jose is enrolled in the program through 08/06/2024 and the quality control representative advised that the paperwork was sent out in error. Call placed to patient, spoke to spouse, advised he is enrolled through 08/06/2024 and he does not need to complete re enrollment paperwork, per [employer]. documented in this encounter Plan of Treatment Upcoming Encounters Date Type Department Care Team (Late st Contact Info) Description 01/30/2025 11:00 AM EDT Office Visit Hematology/Oncology at [address] [phone] Dmitry Bhatti MD [facility] DR [place] [address] Ellen Mcrae APRN [facility] [place] [address] 01/30/2025 11:30 AM EDT Infusion Hematology Oncology at [address] [phone] documented as of this encounter Visit Diagnoses Not on filedocumented in this encounter Care Teams Greige Mender Relationship Specialty Start Date End Date Paulino Finley MD [address] [place] [address] PCP - General Emergency Medicine 09/11/21 documented as of this encounter
--- OUTSIDE RECORDS SUMMARY | 2024-12-05 14:08 | XMS_ITS | Encounter Summary ---
Author Organization [facility] [place] [address] Care Team Providers Care Vp Delivery Name Role Phone Paulino Finley MD Primary Care Provider [phone] Encounter Details Date Type Department Care Team (Late Contact Info) Description 09/03/2023 Orders Only [place] [address] Dina Schrader APRN COVID-19 Social History Tobacco Use Types Packs/Day [...] 11:00 AM EDT Office Visit Hematology/Oncology at [address] [phone] Dmitry Bhatti MD [facility] DR [place] [address] Ellen Mcrae APRN [facility] [place] [address] 01/30/2025 11:30 AM EDT Infusion Hematology Oncology at [address] [phone] documented as of this encounter Visit Diagnoses Diagnosis COVID-19 documented in this encounter Care Teams Vp Delivery Relationship Specialty Start Date End Date Paulino Finley MD [address] [place] [address] PCP - General Emergency Medicine 09/11/21 documented as of this encounter
--- OUTSIDE RECORDS SUMMARY | 2024-12-05 14:08 | XMS_ITS | Encounter Summary ---
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 Procedures TC DOCETAXEL, 1MG, INJECTION TC PEGFILGRASTIM, EXCLUDES BIOSIMILAR, 0.5 MG, INJ J9171 DOCETAXEL J2506 NEULASTA ONPRO Dmitry Bhatti MD [address] [place] [address] [place] [address] Dmitry Bhatti MD [address] [place] [address] DR [place] [address] Referral ID Status Reason Start Date Expiration Date Visits Re quested Visits Authorized [id number] Closed 07/08/2023 07/07/2024 99 99 Encounter Details Date Type Department Care Team (Late st Contact Info) Description 11/02/2023 1:30 PM EST Infusion Hematology Oncology at [address] [phone] Prostate cancer metastatic to multiple sites; Malignant [...] 11:00 AM EDT Office Visit Hematology/Oncology at [address] [phone] Dmitry Bhatti MD [facility] HEMATOLOGY [place] [address] Ellen Mcrae APRN [facility] [place] [address] 01/30/2025 11:30 AM EDT Infusion Hematology Oncology at [address] [phone] documented as of this encounter Visit Diagnoses [...] mL/hr documented in this encounter Care Teams Section Cutter Relationship Specialty Start Date End Date Paulino Finley MD [address] [place] [address] PCP - General Emergency Medicine 09/11/21 documented as of this encounter
--- OUTSIDE RECORDS SUMMARY | 2024-12-05 14:08 | XMS_ITS | Encounter Summary ---
[place] [address] Care Team Providers Care Staff Forester Name Role Phone Paulino Finley MD Primary Care Provider [phone] Reason for Visit * Reason Onset Date Comments Diarrhea 12/03/2023 Follow-up 12/03/2023 diarrhea Encounter Details Date Type Department Care Team (Late st Contact Info) Description 12/03/2023 Telephone Hematology/Oncology at [address] [phone] Aby Del Rio, RN Diarrhea; [...] 100mg BID x7days on 11/24, prescribed by bolt sorter. He has finished that prescription, but continues to have diarrhea. He denies fever, abdominal pain/cramping, dark stools/blood in stool, dark yellow urine. Sometimes the urge to go is sudden and he needs to mccabe to a bathroom. He has not tried anything. He is going to try imodium a-d. If he does not see improvement or has worsening symptoms he knows to call [facility] on-call over the weekend. We will call [...] AM EDT Office Visit Hematology/Oncology at [address] [phone] Dmitry Bhatti MD [facility] DR HEMATOLOGY [place] [address] Ellen Mcrae APRN [facility] [place] [address] 01/30/2025 11:30 AM EDT Infusion Hematology Oncology at [address] [phone] documented as of this encounter Visit Diagnoses Not on filedocumented in this encounter Care Teams Staff Forester Relationship Specialty Start Date End Date Paulino Finley MD [address] [place] [address] PCP - General Emergency Medicine 09/11/21 documented as of this encounter
--- OUTSIDE RECORDS SUMMARY | 2024-12-05 14:08 | XMS_ITS | Encounter Summary ---
Author Organization [facility] [place] [address] Care Team Providers Care Patient Clerical Assistant Name Role Phone Paulino Finley MD Primary Care Provider [phone] Encounter Details Date Type Department Care Team [...] 11:00 AM EDT Office Visit Hematology/Oncology at [address] [phone] Dmitry Bhatti MD [facility] [place] [address] Ellen Mcrae APRN [facility] [place] [place] [address] 01/30/2025 11:30 AM EDT Infusion Hematology Oncology at [address] [phone] documented as of this encounter Visit Diagnoses Not on filedocumented in this encounter Care Teams Patient Clerical Assistant Relationship Specialty Start Date End Date Paulino Finley MD [address] [place] [address] PCP - General Emergency Medicine 09/11/21 documented as of this encounter
--- OUTSIDE RECORDS SUMMARY | 2024-12-05 14:08 | XMS_ITS | Encounter Summary ---
[place] [address] Care Team Providers Care Pusher Runner Name Role Phone Paulino Finley MD Primary Care Provider [phone] Encounter Details Date Type Department Care Team (Late Contact Info) Description 08/02/2023 Telephone [place] [phone] Calista Ridley Social History Tobacco Use Types [...] 11:00 AM EDT Office Visit Hematology/Oncology at [address] [phone] Dmitry Bhatti MD [facility] [address] [place] [address] Ellen Mcrae APRN [facility] [place] [address] 01/30/2025 11:30 AM EDT Infusion Hematology Oncology at [address] [phone] documented as of this encounter Visit Diagnoses Not on filedocumented in this encounter Care Teams Pusher Runner Relationship Specialty Start Date End Date Paulino Finley MD [address] [place] [address] PCP - General Emergency Medicine 09/11/21 documented as of this encounter
--- OUTSIDE RECORDS SUMMARY | 2024-12-05 14:08 | XMS_ITS | Encounter Summary ---
[place] [address] Care Team Providers Care Medical Records Receptionist Name Role Phone Paulino Finley MD Primary Care Provider [phone] Reason for Visit * Reason Comments Chemotherapy [...] DOCETAXEL J2506 NEULASTA ONPRO Dmitry Bhatti MD [address] [place] [address] [place] [address] Dmitry Bhatti MD [address] [place] [address] DR [place] [address] Referral ID Status Reason Start Date Expiration Date Visits Re quested Visits Authorized [id number] Closed 07/08/2023 07/07/2024 99 99 Encounter Details Date Type Department Care Team (Late st Contact Info) Description 10/12/2023 9:30 AM EST Infusion Hematology Oncology at [address] [phone] Prostate cancer metastatic to multiple sites; Malignant [...] AM EDT Office Visit Hematology/Oncology at [address] [phone] Dimtry Bhatti MD [facility] DR HEMATOLOGY [place] [address] Ellen Mcrae APRN [facility] [place] [address] 01/30/2025 11:30 AM EDT Infusion Hematology Oncology at [address] [phone] documented as of this encounter [...] mL/hr documented in this encounter Care Teams Medical Records Receptionist Relationship Specialty Start Date End Date Paulino Finley MD [address] [place] [address] PCP - General Emergency Medicine 09/11/21 documented as of this encounter
--- OUTSIDE RECORDS SUMMARY | 2024-12-05 14:08 | XMS_ITS | Encounter Summary ---
Author Organization [facility] [place] [address] Care Team Providers Care Hockey Instructor Name Role Phone Paulino Finley MD Primary Care Provider [phone] Encounter Details Date Type Department Care Team [...] AM EDT Office Visit Hematology/Oncology at [address] [phone] Dmitry Bhatti MD [facility] DR [place] [address] Ellen Mcrae APRN [facility] [place] [address] 01/30/2025 11:30 AM EDT Infusion Hematology Oncology at [address] [phone] documented as of this encounter Visit Diagnoses Not on filedocumented in this encounter Care Teams Hockey Instructor Relationship Specialty Start Date End Date Paulino Finley MD [address] [place] [address] PCP - General Emergency Medicine 09/11/21 documented as of this encounter
--- OUTSIDE RECORDS SUMMARY | 2024-12-05 14:08 | XMS_ITS | Encounter Summary ---
[place] [address] Care Team Providers Care Fit Model Name Role Phone Paulino Finley MD Primary Care Provider [phone] Reason for Visit * Reason Comments Chemotherapy [...] DOCETAXEL J2506 NEULASTA ONPRO Dmitry Bhatti MD [address] [place] [address] DR HEMATOLOGY [place] [address] Dmitry Bhatti MD [address] [place] [address] DR HEMATOLOGY [place] [address] Referral ID Status Reason Start Date Expiration Date Visits Re quested Visits Authorized [id number] Closed 07/08/2023 07/07/2024 99 99 Encounter Details Date Type Department Care Team (Late st Contact Info) Description 08/31/2023 11:30 AM EDT Infusion Hematology Oncology at [address] [phone] Prostate cancer metastatic to multiple sites; Malignant [...] 11:00 AM EDT Office Visit Hematology/Oncology at [address] [phone] Dmitry Bhatti MD [facility] DR HEMATOLOGY [place] [address] Ellen Mcrae APRN [facility] [place] [address] 01/30/2025 11:30 AM EDT Infusion Hematology Oncology at [address] [phone] documented as of this encounter Visit Diagnoses [...] mL/hr documented in this encounter Care Teams Fit Model Relationship Specialty Start Date End Date Paulino Finley MD [address] [place] [address] PCP - General Emergency Medicine 09/11/21 documented as of this encounter
--- OUTSIDE RECORDS SUMMARY | 2024-12-05 14:08 | XMS_ITS | Encounter Summary ---
Author Organization [facility] [place] [address] Care Team Providers Care Assistant Project Manager Name Role Phone Paulino Finley MD Primary Care Provider [phone] Encounter Details Date Type Department Care Team (Late st Contact Info) Description 10/12/2023 9:00 AM EST Office Visit Hematology/Oncology at [address] [phone] Dmitry Bhatti MD [facility] DR [place] [address] Ellen Mcrae APRN [facility] [place] [address] Prostate cancer metastatic to multiple sites; Hematuria, [...] on May 13. Pathology revealed prostatic adenocarcinoma Orient 5+4. Staging CT abdomen and pelvis and [...] here with his today. They live in [place]. Medications: Your Medications Accurate as of October [...] adenocarcinoma, involving 1 of 1 core. - Orient score 4 + 5 = 9 (grade group 5), tumor extent 1 mm (15% of core). - Perineural invasion is identified. C. PROSTATE, RIGHT MID LATERAL, NEEDLE CORE BIOPSY: - Prostatic adenocarcinoma, involving 1 of 1 core. - Orient score 5 + 4 = 9 (grade [...] adenocarcinoma, involving 1 of 1 core. - Orient score 5 + 4 = 9 (grade group 5), tumor extent 16 mm (100% of core). - Perineural invasion is identified. F. PROSTATE, RIGHT APEX MEDIAL, NEEDLE CORE BIOPSY: - Prostatic adenocarcinoma, involving 1 of 1 core. - Orient score 5 + 4 = 9 (grade [...] adenocarcinoma, involving 1 of 1 core. - Orient score 3 + 5 = 8 (grade group 4), tumor extent 4 mm (30% of core). J. PROSTATE, LEFT MID MEDIAL, NEEDLE CORE BIOPSY: - Prostatic adenocarcinoma, involving 1 of 1 core. - Orient score 4 + 5 = 9 (grade group 5), tumor extent 2 mm (15% of core). K. PROSTATE, LEFT APEX LATERAL, NEEDLE CORE BIOPSY: - Benign prostatic tissue. L. PROSTATE, LEFT APEX MEDIAL, NEEDLE CORE BIOPSY: - Prostatic adenocarcinoma, involving 1 of 1 core. - Orient score 5 + 4 = 9 (grade [...] Food and Drug Administration approved darolutamide (Nubeqa, [employer] tablets in combination with docetaxel for adult patients with metastatic hormone-sensitive prostate cancer (mHSPC). Efficacy was based on ARASENS ([id number]), a randomized, multicenter, double- blind, placebo-controlled clinical trial in 1306 patients with mHSPC. Patients were randomized to receive either darolutamide 600 mg orally twice daily plus docetaxel 75 mg/m2 intravenously administered every 3 weeks forup to 6 cycles or docetaxel plus placebo. All patients received a gonadotropin-releasing hormone analog concurrently or had a bilateral orchiectomy. The primary efficacy measure was overall survival (OS). Meps-sy-fbfd progression was an additional efficacy measure. Median OS was not reached (NR) (95% CI: NR, NR) in the darolutamide plus docetaxelarm and 48.9 months (95% CI: 44.4, NR) in docetaxel plus placebo arm (HR 0.68; 95% CI: 0.57, 0.80; p<0.0001). Treatment with darolutamide and docetaxel resulted in a statistically significant delay in bbec-wp-yrxw progression (HR 0.79; 95% CI: 0.66, 0.95; [...] and hypocalcemia. The recommended darolutamide dose for [facility] is 600 mg (two 300 mg [...] AM EDT Office Visit Hematology/Oncology at [address] [phone] Dmitry Bhatti MD [facility] DR [place] [address] Ellen Mcrae APRN [facility] [place] [address] 01/30/2025 11:30 AM EDT Infusion Hematology Oncology at [address] [phone] documented as of this encounter Visit Diagnoses Diagnosis Prostate cancer metastatic to multiple sites Malignant neoplasm of prostate Hematuria, unspecified type Androgen deprivation therapy Encounter for therapeutic drug monitoring Encounter for chemotherapy management documented in this encounter Care Teams Assistant Project Manager Relationship Specialty Start Date End Date Paulino Finley MD [address] [place] [address] PCP - General Emergency Medicine 09/11/21 documented as of this encounter
--- OUTSIDE RECORDS SUMMARY | 2024-12-05 14:08 | XMS_ITS | Encounter Summary ---
Author Organization [facility] [place] [address] Care Team Providers Care Boarding Specialist Name Role Phone Paulino Finley MD Primary Care Provider [phone] Encounter Details Date Type Department Care Team [...] 11:00 AM EDT Office Visit Hematology/Oncology at [address] [phone] Dmitry Bhatti MD [facility] DR [place] [address] Ellen Mcrae APRN [facility] [place] [address] 01/30/2025 11:30 AM EDT Infusion Hematology Oncology at [address] [phone] documented as of this encounter Visit Diagnoses Not on filedocumented in this encounter Care Teams Boarding Specialist Relationship Specialty Start Date End Date Paulino Finley MD [address] [place] [address] PCP - General Emergency Medicine 09/11/21 documented as of this encounter
--- OUTSIDE RECORDS SUMMARY | 2024-12-05 14:08 | XMS_ITS | Encounter Summary ---
Author Organization [facility] [place] [address] Care Team Providers Care Seasoning Mixer Name Role Phone Paulino Finley MD Primary Care Provider Encounter Details Date Type Department Care Team (Late st Contact Info) Description 08/31/2023 11:00 AM EDT Office Visit Hematology/Oncology at [address] [phone] Dmitry Bhatti MD [facility] [address] [place] [address] Dina Schrader, REGIONAL EDUCATION MANAGER Malignant neoplasm of prostate metastatic to bone [...] him. That dissipated after about a week. Healtessy is having random shooting pain in his [...] March 2017: noted in ED in [facility]. Previously noted to be paroxysmal. 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 He is to Briana for 40 yrs. 4 children - All live in different states - [place] Wang Enjoys raising Beef Cattle and doing Civil War and Living History and shoot Black powder/Antique firearms. He enjoys builiding Firearms/Blacksmithing - Charcoal, [place], etc. Social Determinants of Health Financial Resource [...] adenocarcinoma, involving 1 of 1 core. - [place] score 5 + 4 = 9 (grade group 5), tumor extent 10 mm (80% of core). D. PROSTATE, RIGHT MID MEDIAL, NEEDLE CORE BIOPSY: - Prostatic adenocarcinoma, involving 1 of 1 core. - [place] score 4 + 5 = 9 (grade [...] adenocarcinoma, involving 1 of 1 core. - [place] score 4 + 3 = 7 (grade group 3), 70% Marko pattern 4, tumor extent 6 mm (40% of core). - Cribriform Marko pattern 4 is present. I. PROSTATE, LEFT MID LATERAL, NEEDLE CORE BIOPSY: - Prostatic adenocarcinoma, involving 1 of 1 core. - [place] score 3 + 5 = 8 (grade group 4), tumor extent 4 mm (30% of core). J. PROSTATE, LEFT MID MEDIAL, NEEDLE CORE BIOPSY: - Prostatic adenocarcinoma, involving 1 of 1 core. - [place] score 4 + 5 = 9 (grade group 5), tumor extent 2 mm (15% of core). K. PROSTATE, LEFT APEX LATERAL, NEEDLE CORE BIOPSY: - Benign prostatic tissue. L. PROSTATE, LEFT APEX MEDIAL, NEEDLE CORE BIOPSY: - Prostatic adenocarcinoma, involving 1 of 1 core. - [place] score 5 + 4 = 9 (grade [...] Food and Drug Administration approved darolutamide (Nubeqa, [employer].) tablets in combination with docetaxel for adult patients with metastatic hormone-sensitive prostate cancer (mHSPC). Efficacy was based on ARASENS ([id number]), a randomized, multicenter, double- blind, placebo-controlled clinical trial in 1306 patients with mHSPC. Patients were randomized to receive either darolutamide 600 mg orally twice daily plus docetaxel 75 mg/m2 intravenously administered every 3 weeks forup to 6 cycles or docetaxel plus placebo. All patients received a gonadotropin-releasing hormone analog concurrently or had a bilateral orchiectomy. The primary efficacy measure was overall survival (OS). Azin-gn-tzmq progression was an additional efficacy measure. Median OS was not reached (NR) (95% CI: NR, NR) in the darolutamide plus docetaxelarm and 48.9 months (95% CI: 44.4, NR) in docetaxel plus placebo arm (HR 0.68; 95% CI: 0.57, 0.80; p<0.0001). Treatment with darolutamide and docetaxel resulted in a statistically significant delay in yhyk-tl-omor progression (HR 0.79; 95% CI: 0.66, 0.95; [...] and hypocalcemia. The recommended darolutamide dose for [facility] is 600 mg (two 300 mg [...] 1-12 July [address] Contreras 08/31/23 [...] AM EDT Office Visit Hematology/Oncology at [address] [phone] Dmitry Bhatti MD [facility] DR [place] [address] Ellen Mcrae APRN [facility] [place] [address] 01/30/2025 11:30 AM EDT Infusion Hematology Oncology at [address] [phone] documented as of this encounter Visit Diagnoses Diagnosis Malignant neoplasm of prostate metastatic to bone Malignant neoplasm of prostate documented in this encounter Care Teams Seasoning Mixer Relationship Specialty Start Date End Date Paulino Finley MD [address] [place] [address] PCP - General Emergency Medicine 09/11/21 documented as of this encounter
--- OUTSIDE RECORDS SUMMARY | 2024-12-05 14:08 | XMS_ITS | Encounter Summary ---
[place] [address] Care Team Providers Care Communication And Outreach Manager Name Role Phone Paulino Finley MD Primary Care Provider [phone] Encounter Details Date Type Department Care Team (Late st Contact Info) Description 08/24/2023 Telephone Hematology/Oncology at [address] [phone] Asuncion Valencia RN Social History [...] they didn't order the test. He uses [facility] in [facility]. He is also wondering if he [...] Received results of UA done today at [facility] and reviewed with Dr. Bhatti. UA showed: Neg Leukocytes. Large amount of blood. C&S is being done. Recommendations/Plan: Discussed with Dr. Bhatti. Would like patient to contact urologist for management. Patient is established with urology at [facility] (Nichol/Lenin). Dr. Bhatti feels that [...] next week with Magy Contact urology at [facility] to make appt for evaluation. Mr. Bee agrees with plan above. Nursing to follow-up on results of C&S later this week and review with Dr. Bhatti. documented in this encounter Plan of Treatment Upcoming Encounters Date Type Department Care Team (Late st Contact Info) Description 01/30/2025 11:00 AM EDT Office Visit Hematology/Oncology at [address] [phone] Dmitry Bhatti MD [facility] HEMATOLOGY [place] [address] Ellen Mcrae APRN [facility] [place] [address] 01/30/2025 11:30 AM EDT Infusion Hematology Oncology at [address] [phone] documented as of this encounter Procedures Procedure Name Priority Date/Time Associated Diagnosis Comments URINE CULTURE Routine 08/26/2023 8:10 AM EDT documented in this encounter Results * Urine culture (08/26/2023 8:10 AM EDT) Urine Culture gram positive yung Urine Other colony count <10,000 colonies/mL Historical Provider MICROBIOLOGY - NERAL ORDERABLES documented in this encounter Visit Diagnoses Not on filedocumented in this encounter Care Teams Communication And Outreach Manager Relationship Specialty Start Date End Date Paulino Finley MD [address] [place] [address] PCP - General Emergency Medicine 09/11/21 documented as of this encounter
--- OUTSIDE RECORDS SUMMARY | 2024-12-05 14:08 | XMS_ITS | Encounter Summary ---
[place] [address] Care Team Providers Care Supervising Editor Trailer Name Role Phone Paulino Finley MD Primary Care Provider [phone] Reason for Visit * Reason Onset Date Comments Hematuria 08/23/2023 Visual blood in urine Encounter Details Date Type Department Care Team (Late st Contact Info) Description 08/23/2023 Telephone Hematology/Oncology at [address] [phone] Debo Antunez RN Hematuria (Visual [...] call back, best call back number is [phone] documented in this encounter Plan of Treatment Upcoming Encounters Date Type Department Care Team (Late st Contact Info) Description 01/30/2025 11:00 AM EDT Office Visit Hematology/Oncology at [address] [phone] Dmitry Steven MD [facility] [place] [address] Ellen Mcrae APRN [facility] [place] [address] 01/30/2025 11:30 AM EDT Infusion Hematology Oncology at [address] [phone] documented as of this encounter Visit Diagnoses Diagnosis Hematuria, unspecified type- Primary documented in this encounter Care Teams Supervising Editor Trailer Relationship Specialty Start Date End Date Paulino Finley MD [address] [place] [address] PCP - General Emergency Medicine 09/11/21 documented as of this encounter
--- OUTSIDE RECORDS SUMMARY | 2024-12-05 14:08 | XMS_ITS | Encounter Summary ---
Author Organization [facility] [place] [address] Care Team Providers Care Clam Shovel Operator Name Role Phone Paulino Finley MD Primary Care Provider [phone] Encounter Details Date Type Department Care Team (Late st Contact Info) Description 08/10/2023 Notes Only Hematology/Oncology at [address] [phone] Lexy Ybarra, MANAGER OF EXHIBITIONS AND COLLECTIONS OFFICE OF CARE MANAGEMENT Social History Tobacco [...] introduce myself and role of social media job titles to assess/address barriers to getting to and through treatments; address support needs and connect with community services and resources as needed. 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 He has Medicare and BCBS for insurance. He did not identify any concerns re finances orinsurance. Advance Directives: Jose has not completed his advance directive. He does have the information for this. He is meeting with an traffic law attorney to get his affairs in order [...] assessment Supportive Counseling Plan: Informed pt of MANAGER OF EXHIBITIONS AND COLLECTIONS availability and contact information. Will follow to assess/address psychosocial needs. JONY Blount, SALESPERSON YARD GOODS, OSW-C Senior Accountant Analyst [facility] documented in this encounter Plan of Treatment Upcoming Encounters Date Type Department Care Team (Late st Contact Info) Description 01/30/2025 11:00 AM EDT Office Visit Hematology/Oncology at [address] [phone] Dmitry Bhatti MD [facility] DR HEMATOLOGY [place] [address] Ellen Mcrae APRN [facility] [place] [address] 01/30/2025 11:30 AM EDT Infusion Hematology Oncology at [address] [phone] documented as of this encounter Visit Diagnoses Not on filedocumented in this encounter Care Teams Clam Shovel Operator Relationship Specialty Start Date End Date Paulino Finley MD [address] [place] [address] PCP - General Emergency Medicine 09/11/21 documented as of this encounter
--- OUTSIDE RECORDS SUMMARY | 2024-12-05 14:09 | XMS_ITS | Encounter Summary ---
Author Organization [facility] [place] [address] Care Team Providers Care Intermediate Accountant Name Role Phone Paulino Finley MD Primary Care Provider Encounter Details Date Type Department Care Team (Late Contact Info) Description 07/29/2023 Ancillary Procedure Radiology Library at [facility] [place] [address] Paulino Finley MD [address] [place] [address] Social History Tobacco Use Types Packs/Day Years [...] 11:00 AM EDT Office Visit Hematology/Oncology at [address] [phone] Dmitry Bhatti MD [facility] [place] [address] Ellen Mcrae APRN [facility] [place] [address] 01/30/2025 11:30 AM EDT Infusion Hematology Oncology at [address] [phone] documented as of this encounter Procedures Procedure Name Priority Date/Time Associated Diagnosis Comments FILM LIBRARY STORAGE ONLY CT CHEST Routine 07/29/2023 12:00 AM EDT documented in this encounter Results * Film Library- Storage Only CT Chest (07/29/2023 12:00 AM EDT) Narrative [facility] 07/30/2023 2:12 PM EDT This exam is auto-finalizing. It's purpose is for storage only. Paulino Finley MD IMG FILM LIBRARY ORD ERABLES Performing Organization Address City/State/RUST Co de Phone Number [place], [place] documented in this encounter Visit Diagnoses Not on filedocumented in this encounter Care Teams Intermediate Accountant Relationship Specialty Start Date End Date Paulino Finley MD [address] [place] [address] PCP - General Emergency Medicine 09/11/21 documented as of this encounter
--- OUTSIDE RECORDS SUMMARY | 2024-12-05 14:09 | XMS_ITS | Encounter Summary ---
[place] [address] Care Team Providers Care School Social Worker Name Role Phone Paulino Finley MD Primary Care Provider [phone] Encounter Details Date Type Department Care Team (Latest Contact Info) Description 05/21/2022 8:00 AM EDT Office Visit Audiology at [address] [phone] Valerie Toscano AUD [facility] [address] Asymmetrical sensorineural hearing loss; Fitting and adjustment [...] cleaned from the contacts of the aids' stereoplotter operator. The debris in the layout mechanic was likely preventing proper contact with the [...] for any interim concerns. Sabina Toscano MS, [facility] Clinical Coordinator, Adult Audiology Program [place] [phone] (fax) AMPLIFICATION EQUIPMENT LIST: HEARING AID RIGHT LEFT Make/Model/Style Phonak Audeo M30 R Phonak Audeo M30 R Casing Color White White Serial Number [id number] Battery Size Rechargeable Rechargeable Invoice number/date [id number] 08/24/19 [id number] 08/24/19 Other Comments PROGRAM/SETTINGS Fitting Algorithm DSL [...] HELENA / Dome specifics Size 03 M health science writer small vented dome Size 03 M health science writer small vented dome Impression Date Invoice number/date Other Comments ACCESSORIES Make/Model (color) Serial Number Warranty date Invoice number/date Settings Other Comments documented in this encounter Plan of Treatment Upcoming Encounters Date Type Department Care Team (Late st Contact Info) Description 01/30/2025 11:00 AM EDT Office Visit Hematology/Oncology at [address] [phone] Dmitry Bhatti MD [facility] DR [place] [address] Ellen Mcrae APRN [facility] [place] [address] 01/30/2025 11:30 AM EDT Infusion Hematology Oncology at [address] [phone] documented as of this encounter Visit Diagnoses Diagnosis Asymmetrical sensorineural hearing loss Sensorineural hearing loss, asymmetrical Fitting and adjustment of hearing aid documented in this encounter Care Teams School Social Worker Relationship Specialty Start Date End Date Paulino Finley MD [address] [place] [address] PCP - General Emergency Medicine 09/11/21 documented as of this encounter
--- OUTSIDE RECORDS SUMMARY | 2024-12-05 14:09 | XMS_ITS | Encounter Summary ---
[place] [address] Care Team Providers Care Conference Services Manager Name Role Phone Paulino Finley MD Primary Care Provider [phone] Reason for Visit * Reason Comments Specialty Pharmacy Review Nubeqa 300mg t ablet Encounter Details Date Type Department Care Team (Late st Contact Info) Description 07/08/2023 Specialty [place] [address] Jeannie Villatoro, [facility] Social History Tobacco Use Types Packs/Day Years [...] Villatoro - 07/08/2023 11:59 PM EDT The [facility] has completed a benefits investigation for Jose Bee to reviewtheir eligibility to fill at [facility]. Per patient's medication list they are prescribed Nubeqa 300mg tablet and the medication is able to be filled at the [facility], but the medication cost may not be financially viable. The patient is eligible to fill the medication through [facility] with a high copay. No PA required. Due to the high copay, the patient has been referred to [facility] for food safety manager assistance. documented in this encounter Plan of Treatment Upcoming Encounters Date Type Department Care Team (Late st Contact Info) Description 01/30/2025 11:00 AM EDT Office Visit Hematology/Oncology at [address] [phone] Dmitry Bhatti MD [facility] DR HEMATOLOGY [place] [address] Ellen Mcrae APRN [facility] [place] [address] 01/30/2025 11:30 AM EDT Infusion Hematology Oncology at [address] [phone] documented as of this encounter Visit Diagnoses Not on filedocumented in this encounter Care Teams Conference Services Manager Relationship Specialty Start Date End Date Paulino Finley MD [address] [place] [address] PCP - General Emergency Medicine 09/11/21 documented as of this encounter
--- OUTSIDE RECORDS SUMMARY | 2024-12-05 14:09 | XMS_ITS | Encounter Summary ---
Author Organization [facility] Address [facility] [place] [address] Care Team Providers Care Photolith Operator Name Role Phone Paulino Finley MD Primary Care Provider [phone] Reason for Visit * Reason Comments Follow-up Has to Clear throat a lot Encounter Details Date Type Department Care Team (Late st Contact Info) Description 05/21/2022 11:40 AM EDT Office Visit [place] [address] Sriram Contreras MD [facility] [place] [address] Cancer of base of tongue Social History [...] MD - 05/21/2022 11:40 AM EDT . [facility] OTOLARYNGOLOGY HEAD AND NECK TUMOR [...] CPAP G47.33, Z99.89 ??? Adult BMI 30+ [id number] PAST MEDICAL HISTORY Past Medical History: Diagnosis [...] the TelePack Unit and uploaded to the Telly Veneer Sheet Repairer. 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
--- OUTSIDE RECORDS SUMMARY | 2024-12-05 14:09 | XMS_ITS | Encounter Summary ---
[place] [address] Care Team Providers Care Railway Yard Assistant Name Role Phone Jovon Sifuentes MD Primary Care Provider [phone] Encounter Details Date Type Department Care Team (Latest Contact Info) Description 06/29/2019 10:15 AM EDT Office Visit Audiology at [address] [phone] Yulissa Munoz AUD Bilateral asymmetric sensorineural hearing loss Social History [...] of this encounter Progress Notes * Yulissa Munoz AUD - 06/29/2019 10:15 AM EDT AUDIOLOGY SECTION [...] a MUTE at the fitting Sudarshan Montoya, Raker Buffing Wheel [facility] [place] [address] ; [phone] (fax) documented in this encounter Plan of Treatment Upcoming Encounters Date Type Department Care Team (Late st Contact Info) Description 01/30/2025 11:00 AM EDT Office Visit Hematology/Oncology at [address] [phone] Dmitry Bhatti MD [facility] HEMATOLOGY [place] [address] Ellen Mcrae APRN [facility] [place] [address] 01/30/2025 11:30 AM EDT Infusion Hematology Oncology at [address] [phone] documented as of this encounter Visit Diagnoses Diagnosis Bilateral asymmetric sensorineural hearing loss documented in this encounter Care Teams Railway Yard Assistant Relationship Specialty Start Date End Date Jovon Sifuentes MD [address] [place] [address] PCP - General 09/30/10 09/10/21 documented as of this encounter
--- OUTSIDE RECORDS SUMMARY | 2024-12-05 14:09 | XMS_ITS | Encounter Summary ---
Author Organization [facility] [place] [address] Care Team Providers Care Atmospheric Physicist Name Role Phone Paulino Finley MD Primary Care Provider [phone] Encounter Details Date Type Department Care Team [...] 11:00 AM EDT Office Visit Hematology/Oncology at [address] [phone] Dmitry Bhatti MD [facility] DR [place] [address] Ellen Mcrae APRN [facility] [place] [address] 01/30/2025 11:30 AM EDT Infusion Hematology Oncology at [address] [phone] documented as of this encounter Visit Diagnoses Not on filedocumented in this encounter Care Teams Atmospheric Physicist Relationship Specialty Start Date End Date Paulino Finley MD [address] [place] [address] PCP - General Emergency Medicine 09/11/21 documented as of this encounter
--- OUTSIDE RECORDS SUMMARY | 2024-12-05 14:09 | XMS_ITS | Encounter Summary ---
[place] [address] Care Team Providers Care Crane Oiler Name Role Phone Paulino Finley MD Primary Care Provider [phone] Encounter Details Date Type Department Care Team (Late Contact Info) Description 02/18/2023 Telephone Audiology at [address] [phone] Ester Cardenas Social History Tobacco Use Types [...] 11:00 AM EDT Office Visit Hematology/Oncology at [address] [phone] Dmitry Bhatti MD [facility] [place] [address] Ellen Mcrae APRN [facility] [place] [address] 01/30/2025 11:30 AM EDT Infusion Hematology Oncology at [address] [phone] documented as of this encounter Visit Diagnoses Not on filedocumented in this encounter Care Teams Crane Oiler Relationship Specialty Start Date End Date Paulino Finley MD [address] [place] [address] PCP - General Emergency Medicine 09/11/21 documented as of this encounter
--- OUTSIDE RECORDS SUMMARY | 2024-12-05 14:09 | XMS_ITS | Encounter Summary ---
[place] [address] Care Team Providers Care Trapper Bird Name Role Phone Jovon Sifuentes MD Primary Care Provider Encounter Details Date Type Department Care Team (Late st Contact Info) Description 10/29/2020 Telephone Audiology at [address] [phone] Ramonita Tee Social History Tobacco Use Types [...] for the upcoming hearing evaluation appointment at [facility] Audiology. Patient is aware a packet will bemailed out discussing coverage of the appointment. We have verified the address on file as: [address] [facility] [facility] [address] Leah Mcmahon mailed out ABN for me. documented in this encounter Plan of Treatment Upcoming Encounters Date Type Department Care Team (Late st Contact Info) Description 01/30/2025 11:00 AM EDT Office Visit Hematology/Oncology at [address] [phone] Dmitry Bhatti MD [facility] DR [place] [address] Ellen Mcrae APRN [facility] [place] [address] 01/30/2025 11:30 AM EDT Infusion Hematology Oncology at [address] [phone] documented as of this encounter Visit Diagnoses Not on filedocumented in this encounter Care Teams Trapper Bird Relationship Specialty Start Date End Date Jovon Sifuentes MD [address] [place] [address] PCP - General 09/30/10 09/10/21 documented as of this encounter
--- OUTSIDE RECORDS SUMMARY | 2024-12-05 14:09 | XMS_ITS | Encounter Summary ---
Author Organization [facility] [place] [address] Care Team Providers Care Purse Seiner Name Role Phone Jovon Sifuentes MD Primary Care Provider [phone] Reason for Visit * Reason Comments Follow-up Patient feels he nee ds to clear his throat a lot due to post nasal drip. Swallowing continues to improve. Encounter Details Date Type Department Care Team (Late st Contact Info) Description 08/08/2018 1:00 PM EDT Office Visit [place] [address] Sriram Contreras MD [facility] [place] [address] Cancer of base of tongue Social History [...] MD - 08/08/2018 1:00 PM EDT . [facility] OTOLARYNGOLOGY HEAD AND NECK TUMOR CLINIC FOLLOW [...] CPAP G47.33, Z99.89 ??? Adult BMI 30+ [id number] PAST MEDICAL HISTORY Past Medical History: Diagnosis [...] the TelePack Unit and uploaded to the Stagee Composite Bond Worker. 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
--- OUTSIDE RECORDS SUMMARY | 2024-12-05 14:09 | XMS_ITS | Encounter Summary ---
[place] [address] Care Team Providers Care Rotary Driller Prospecting Name Role Phone Paulino Finley MD Primary Care Provider [phone] Encounter Details Date Type Department Care Team (Late Contact Info) Description 07/29/2023 [place] [phone] Casi Dong Social History Tobacco Use Types [...] the application for assistance with Nubeqa to [employer]. I will follow through once the supervisor alteration workroom program makes a decision. documented in this encounter Plan of Treatment Upcoming Encounters Date Type Department Care Team (Late st Contact Info) Description 01/30/2025 11:00 AM EDT Office Visit Hematology/Oncology at [address] [phone] Dmitry Bhatti MD [facility] DR HEMATOLOGY [place] [address] Ellen Mcrae APRN [facility] [place] [address] 01/30/2025 11:30 AM EDT Infusion Hematology Oncology at [address] [phone] documented as of this encounter Visit Diagnoses Not on filedocumented in this encounter Care Teams Rotary Driller Prospecting Relationship Specialty Start Date End Date Paulino Finley MD [address] [place] [address] PCP - General Emergency Medicine 09/11/21 documented as of this encounter
--- OUTSIDE RECORDS SUMMARY | 2024-12-05 14:09 | XMS_ITS | Encounter Summary ---
[place] [address] Care Team Providers Care Book Reviewer Name Role Phone Jovon Sifuentes MD Primary Care Provider [phone] Encounter Details Date Type Department Care Team (Latest Contact Info) Description 03/02/2019 9:30 AM EDT Office Visit Audiology at [address] [phone] Marianela Vyas AUD Asymmetrical sensorineural hearing loss; Tinnitus, bilateral Social [...] of this encounter Progress Notes * Marianela Vyas AUD - 03/02/2019 9:30 AM EDT AUDIOLOGIC EVALUATION Jose Bee was seen on 03/02/2019 for an audiologic evaluation as medically indicated in conjunction with Dr. Contreras in otolaryngology. Please refer to the scanned audiogram listed under Procedures for findings, impressions and recommendations. Sudarshan Orozco, [facility] [place] [address] documented in this encounter Plan of Treatment Upcoming Encounters Date Type Department Care Team (Late st Contact Info) Description 01/30/2025 11:00 AM EDT Office Visit Hematology/Oncology at [address] [phone] Dmitry Bhatti MD [facility] DR HEMATOLOGY [place] [address] Ellen Mcrae APRN [facility] [place] [address] 01/30/2025 11:30 AM EDT Infusion Hematology Oncology at [address] [phone] documented as of this encounter [...] environments (e.g. reducing background noise and speaking [id number]). - Use of hearing protection when exposed [...] listening environments (e.g.reducing background noise and speaking [id number]). - Use of hearing protection when exposed to potentially hazardous soundlevels. Unknown AUDIOLOGY SERVICES O RDERABLES AUDBASE COMP documented in this encounter Visit Diagnoses Diagnosis Asymmetrical sensorineural hearing loss Sensorineural hearing loss, asymmetrical Tinnitus, bilateral Unspecified tinnitus documented in this encounter Care Teams Book Reviewer Relationship Specialty Start Date End Date Jovon Sifuentes MD [address] [place] [address] PCP - General 09/30/10 09/10/21 documented as of this encounter
--- OUTSIDE RECORDS SUMMARY | 2024-12-05 14:09 | XMS_ITS | Encounter Summary ---
[place] [address] Care Team Providers Care Paper Box Cutter Name Role Phone Paulino Finley MD Primary Care Provider [phone] Reason for Visit * Reason Comments Prior Authorization Nubeqa Encounter Details Date Type Department Care Team (Late st Contact Info) Description 07/08/2023 Specialty [place] [address] Efrem Dos Santos, [facility] Social History Tobacco Use Types Packs/Day [...] Jose Bee Patient : 1950 Patient Address: [address] [place] [address] (home) Medication Name: NUBEQA 300 MG TABLET Medication ID: Patient Location: [facility]K Patient Location Comment: Medication Strength Frequency Requested: Take 2 tablets by mouth twice a day Qty/Day Supply: 120/30 New Start: New to Therapy Diagnosis & ICD-10 Code: Prostate Cancer C61 Subscriber Insurance: [id number] Subscriber Insurance Comment: Phone: Fax: Physician: DMITRY STEVEN Physician Comment : PA Status: PA Not Needed Insurance mandated Pharmacy: Fillable at [facility] Specialty Pharmacy: Yes Insurance requirements/notes: None Copay: $597.40 Copay assistance: Other (Enter Comment) Copay assistance comment: PT has a high copay, would you like me to refer the PT to [facility] for financial assistance? Pharmacy staff will be reaching out to the patient to inform them of their medication's [facility]. If applicable, a pharmacist will speak with the patient to offer our specialty pharmacy services and to arrange delivery of their medication. Efrem Dos Santos 07/08/23 3:54 PM documented in this encounter Plan of Treatment Upcoming Encounters Date Type Department Care Team (Late st Contact Info) Description 01/30/2025 11:00 AM EDT Office Visit Hematology/Oncology at [address] [phone] Dmitry Steven MD [facility] DR HEMATOLOGY [place] [address] Ellen Mcrae APRN [facility] [place] [address] 01/30/2025 11:30 AM EDT Infusion Hematology Oncology at [address] [phone] documented as of this encounter Visit Diagnoses Not on filedocumented in this encounter Care Teams Paper Box Cutter Relationship Specialty Start Date End Date Paulino Finley MD [address] [place] [address] PCP - General Emergency Medicine 09/11/21 documented as of this encounter
--- OUTSIDE RECORDS SUMMARY | 2024-12-05 14:09 | XMS_ITS | Encounter Summary ---
[place] [address] Care Team Providers Care Supervisor Felting Name Role Phone Jovon Sifuentes MD Primary Care Provider Reason for Referral * Diagnostic Test (Routine) - Closed Specialty Diagnoses / Procedures Referred By Contac t Referred To Contact Radiology Diagnoses Cancer of base of tongue Procedures CT Neck Soft Tissue w Contrast (Generic) Sriram Contreras MD [facility] [address] [facility] [place] [address] Referral ID Status Reason Start Date Expiration Date V isits Requested Visits Authorized [id number] Closed Specialty Service Requested 06/29/2019 06/28/2020 1 1 * Diagnostic Test (Routine) - Closed Specialty Diagnoses / Procedures Referred By Contac t Referred To Contact Radiology Diagnoses Cancer of base of tongue Procedures CT Chest w Contrast Sriram Contreras MD [facility] [place] [address] [facility] [place] [address] Referral ID Status Reason Start Date Expiration Date V isits Requested Visits Authorized [id number] Closed Specialty Service Requested 06/29/2019 06/28/2020 1 1 Reason for Visit * Diagnostic Test (Routine) - Closed Specialty Diagnoses / Procedures Referred By Huma valladares Referred To Contact Radiology Diagnoses Cancer of base of tongue Procedures CT Chest w Contrast Sriram Contreras MD [facility] [place] [address] [facility] [place] [address] Referral ID Status Reason Start Date Expiration Date V isits Requested Visits Authorized [id number] Closed Specialty Service Requested 06/29/2019 06/28/2020 1 1 Encounter Details Date Type Department Care Team (Latest Contact Info) Description 11/09/2019 8:56 AM EST - 11/09/2019 11:59 PM EST Hospital [place] [address] Sriram Contreras MD [facility] [place] [address] Cancer of base of tongue Discharge Disposition: [...] AM EDT Office Visit Hematology/Oncology at [address] [phone] Dmitry Bhatti MD [facility] HEMATOLOGY [place] [address] Ellen Mcrae APRN [facility] [place] [address] 01/30/2025 11:30 AM EDT Infusion Hematology Oncology at [address] [phone] documented as of this encounter Procedures Procedure [...] contact the number below. Sriram Contreras MD IM CT ORDERABLES * CT Chest w Contrast [...] mLs documented in this encounter Care Teams Supervisor Felting Relationship Specialty Start Date End Date Jovon Sifuentes MD [address] [place] [address] PCP - General 09/30/10 09/10/21 documented as of this encounter
--- OUTSIDE RECORDS SUMMARY | 2024-12-05 14:09 | XMS_ITS | Encounter Summary ---
Author Organization [facility] [place] [address] Care Team Providers Care Accounts Payable Analyst Name Role Phone Jovon Sifuentes MD Primary Care Provider Encounter Details Date Type Department Care Team ([facility] Contact Info) Description 09/11/2019 Telephone [place] [phone] Nawaf Kendrick Social History Tobacco Use Types [...] 11:00 AM EDT Office Visit Hematology/Oncology at [address] [phone] Dmitry Bhatti MD [facility] [address] [place] [address] Ellen Mcrae APRN [facility] [place] [address] 01/30/2025 11:30 AM EDT Infusion Hematology Oncology at [address] [phone] documented as of this encounter Visit Diagnoses Not on filedocumented in this encounter Care Teams Accounts Payable Analyst Relationship Specialty Start Date End Date Jovon Sifuentes MD [address] [place] [address] PCP - General 09/30/10 09/10/21 documented as of this encounter
--- OUTSIDE RECORDS SUMMARY | 2024-12-05 14:09 | XMS_ITS | Encounter Summary ---
[place] [address] Care Team Providers Care Jewel Hole Cornerer Name Role Phone Jovon Sifuentes MD Primary Care Provider Encounter Details Date Type Department Care Team (Late Contact Info) Description 08/09/2018 [place]phone [place] [phone] Dina Alonzo RN Social History Tobacco Use [...] AM EDT Office Visit Hematology/Oncology at [address] [phone] Dmitry Bhatti MD [facility] DR [place] [address] Ellen Mcrae APRN [facility] [place] [address] 01/30/2025 11:30 AM EDT Infusion Hematology Oncology at [address] [phone] documented as of this encounter Visit Diagnoses Not on filedocumented in this encounter Care Teams Jewel Hole Cornerer Relationship Specialty Start Date End Date Jovon Sifuentes MD [address] [place] [address] PCP - General 09/30/10 09/10/21 documented as of this encounter
--- OUTSIDE RECORDS SUMMARY | 2024-12-05 14:09 | XMS_ITS | Encounter Summary ---
Author Organization [facility] [place] [address] Care Team Providers Care Admissions Supervisor Name Role Phone Paulino Finley MD Primary Care Provider Encounter Details Date Type Department Care Team (Late Contact Info) Description 06/04/2023 Ancillary Procedure Radiology Library at [facility] [place] [address] Paulino Finley MD [address] [place] [address] Social History Tobacco Use Types Packs/Day Years [...] AM EDT Office Visit Hematology/Oncology at [address] [phone] Dmitry Bhatti MD [facility] [place] [address] Ellen Mcrae APRN [facility] [place] [address] 01/30/2025 11:30 AM EDT Infusion Hematology Oncology at [address] [phone] documented as of this encounter Procedures Procedure Name Priority Date/Time Associated Diagnosis Comments FILM LIBRARY STORAGE ONLY NUCLEAR MEDICINE Routine 06/04/2023 12:00 AM EDT documented in this encounter Results * Film Library- Storage Only nuclear medicine (06/04/2023 12:00 AM EDT) Narrative [facility] - 11/23/2023 2:50 PM EST This exam is auto-finalizing. It's purpose is for storage only. Paulino Finley MD IMG FILM LIBRARY ORD ERABLES Performing Organization Address City/State/[facility] Co de Phone Number [place], [place] documented in this encounter Visit Diagnoses Not on filedocumented in this encounter Care Teams Admissions Supervisor Relationship Specialty Start Date End Date Paulino Finley MD [address] [place] [address] PCP - General Emergency Medicine 09/11/21 documented as of this encounter
--- OUTSIDE RECORDS SUMMARY | 2024-12-05 14:09 | XMS_ITS | Encounter Summary ---
[place] [address] Care Team Providers Care Bindery Supervisor Name Role Phone Jovon Sifuentes MD Primary Care Provider [phone] Encounter Details Date Type Department Care Team (Late st Contact Info) Description 12/05/2020 8:45 AM EST Office Visit Audiology at [address] [phone] Marianela Vyas AUD Procedure not carried out because of patient's [...] Progress Notes * Marianela Vyas AUD - 12/05/2020 8:45 AM EST Mr. Bee was scheduled today for an updated audiologic evaluation. The Medicare ABN form was presented to the patient upon arrival. As no guarantee could be made that today's evaluation would becovered by Medicare or any supplemental insurance, Mr. Bee ultimately selected Option 3 anddeclined that the evaluation be completed. Sudarshan Orozco [place] [employer] [place] [address] documented in this encounter Plan of Treatment Upcoming Encounters Date Type Department Care Team (Late st Contact Info) Description 01/30/2025 11:00 AM EDT Office Visit Hematology/Oncology at [address] [phone] Dmitry Bhatti MD [facility] DR [place] [address] Ellen Mcrae APRN [facility] [place] [address] 01/30/2025 11:30 AM EDT Infusion Hematology Oncology at [address] [phone] documented as of this encounter Visit Diagnoses Diagnosis Procedure not carried out because of patient's decision documented in this encounter Care Teams Bindery Supervisor Relationship Specialty Start Date End Date Jovon Sifuentes MD [address] [place] [address] PCP - General 09/30/10 09/10/21 documented as of this encounter
--- OUTSIDE RECORDS SUMMARY | 2024-12-05 14:09 | XMS_ITS | Encounter Summary ---
[place] [address] Care Team Providers Care Marketing Secretary Name Role Phone Jovon Sifuentes MD Primary Care Provider [phone] Encounter Details Date Type Department Care Team (Latest Contact Info) Description 04/04/2020 10:15 AM EDT Clinical Support Audiology at [address] [phone] Estela Edmond AUD [facility] [place] [address] Sensorineural hearing loss, asymmetrical Social History Tobacco [...] not power on when removing from the shucker. When placed back in the shucker, light was blinking red. ?? In-house repair attempted unsuccessfully. Sending hearing instrument to in- warranty manufacturerrepair. ?? Attempted to contact Mr. Bee via home and mobile number, however a voicemail message couldnot be left. ?? Mail to patient upon return from repair. Case on HIS shelf. PLAN: Patient to return for routine audiologic care as recommended by managing evening anchor. Contactthis Section in the interim for any concerns related to changes in hearing or aided benefit. David Avery Clinical Hot Roller [place] [phone] AMPLIFICATION EQUIPMENT LIST: HEARING AID RIGHT LEFT Make/Model/Style Phonak Audeo M30 R Phonak Audeo M30 R Casing Color White White Serial Number [id number] Battery Size Rechargeable Rechargeable Invoice number/date [id number] 08/24/19 [id number] 08/24/19 Other Comments PROGRAM/SETTINGS Fitting Algorithm DSL [...] HELENA / Dome specifics Size 03 M business information consultant small vented dome Size 03 M business information consultant small vented dome Impression Date Invoice number/date Other Comments ACCESSORIES Make/Model (color) Serial Number Warranty date Invoice number/date Settings Other Comments documented in this encounter Plan of Treatment Upcoming Encounters Date Type Department Care Team (Late st Contact Info) Description 01/30/2025 11:00 AM EDT Office Visit Hematology/Oncology at [address] [phone] Dmitry Bhatti MD [facility] DR [place] [address] Ellen Mcrae APRN [facility] [place] [address] 01/30/2025 11:30 AM EDT Infusion Hematology Oncology at [address] [phone] documented as of this encounter Visit Diagnoses Diagnosis Sensorineural hearing loss, asymmetrical documented in this encounter Care Teams Marketing Secretary Relationship Specialty Start Date End Date Jovon Sifuentes MD [address] [place] [address] PCP - General 09/30/10 09/10/21 documented as of this encounter
--- OUTSIDE RECORDS SUMMARY | 2024-12-05 14:09 | XMS_ITS | Encounter Summary ---
[place] [address] Care Team Providers Care Costume Technician Name Role Phone Jovon Sifuentes MD Primary Care Provider [phone] Reason for Referral * Diagnostic Test (Routine) - Closed Specialty Diagnoses / Procedures Referred By Contac t Referred To Contact Radiology Diagnoses Cancer of base of tongue Procedures CT Chest w Contrast Sriram Contreras MD [facility] [address] [facility] [place] [address] Referral ID Status Reason Start Date Expiration Date V isits Requested Visits Authorized [id number] Closed Specialty Service Requested 07/21/2018 09/18/2018 1 1 * Diagnostic Test (Routine) - Specialty Diagnoses / Procedures Referred By Contac t Referred To Contact Radiology Diagnoses Cancer of base of tongue Procedures CT Neck Soft Tissue w Contrast (Generic) Sriram Contreras MD [facility] [place] [address] [facility] [place] [address] Referral ID Status Reason Start Date Expiration Date Visits Requested Visits Authorized [id number] Specialty Service Requested 07/21/2018 09/18/2018 1 1 Reason for Visit * Diagnostic Test (Routine) - Closed Specialty Diagnoses / Procedures Referred By Huma valladares Referred To Contact Radiology Diagnoses Cancer of base of tongue Procedures CT Chest w Contrast Sriram Contreras MD [facility] [place] [address] [facility] [place] [address] Referral ID Status Reason Start Date Expiration Date V isits Requested Visits Authorized [id number] Closed Specialty Service Requested 07/21/2018 09/18/2018 1 1 Encounter Details Date Type Department Care Team (Latest Contact Info) Description 08/08/2018 11:19 AM EDT - 08/08/2018 11:59 PM EDT Hospital [place] [address] Sriram Contreras MD [facility] [place] [address] Cancer of base of tongue [...] 11:00 AM EDT Office Visit Hematology/Oncology at [address] [phone] Dmitry Bhatti MD [facility] [address] [place] [address] Ellen Mcrae APRN [facility] [place] [address] 01/30/2025 11:30 AM EDT Infusion Hematology Oncology at [address] [phone] documented as of this encounter Procedures Procedure [...] mLs documented in this encounter Care Teams Costume Technician Relationship Specialty Start Date End Date Jovon Sifuentes MD [address] [place] [address] PCP - General 09/30/10 09/10/21 documented as of this encounter
--- OUTSIDE RECORDS SUMMARY | 2024-12-05 14:09 | XMS_ITS | Encounter Summary ---
Author Organization [facility] [place] [address] Care Team Providers Care Line Assembler Name Role Phone Paulino Finley MD Primary Care Provider Reason for Visit * Consultation (Routine) - Closed Specialty Diagnoses / Procedures Referred By Contac t Referred To Contact Audiology Diagnoses Unspecified hearing loss, unspecified ear Paulino Finley MD [address] [place] [address] [facility] [address] [address] [place] [phone] Referral ID Status Reason Start Date Expiration Date V isits Requested Visits Authorized [id number] Closed Consult, Test & Treat Connection [facility] PCP Updated and/or Approved 09/01/2021 09/01/2022 12 12 Encounter Details Date Type Department Care Team (Latest Contact Info) Description 01/23/2022 9:00 AM EDT Office Visit Audiology at [address] [phone] Yulissa Munoz, AUD Asymmetrical sensorineural hearing loss Social History Tobacco [...] as of this encounter Progress Notes * AlexanderJoseYulissa N, AUD - 01/23/2022 9:00 AM EDT [facility] AUDIOLOGY SECTION AUDIOLOGIC EVALUATION Name: Jose Bee [...] sensitivity was stable for both ears compared [id number]. ?? Word recognition was good (84%) for [...] pure tone audiogram. SNR loss is the [id number]-kh-pivvr ratio required by an individual to understand [...] not hesitate to contact this Section at [phone] if there are questions regarding this report or its recommendations. Laquita Montoya [place] [address] Attachment: audiogram CC: Paulino Finley MD documented in this encounter Plan of Treatment Upcoming Encounters Date Type Department Care Team (Late st Contact Info) Description 01/30/2025 11:00 AM EDT Office Visit Hematology/Oncology at [address] [phone] Dmitry Bhatti MD [facility] DR [place] [address] Ellen Mcrae APRN [facility] [place] [address] 01/30/2025 11:30 AM EDT Infusion Hematology Oncology at [address] [phone] documented as of this encounter [...] asymmetrical documented in this encounter Care Teams Line Assembler Relationship Specialty Start Date End Date Paulino Finley MD [address] [place] [address] PCP - General Emergency Medicine 09/11/21 documented as of this encounter
--- OUTSIDE RECORDS SUMMARY | 2024-12-05 14:09 | XMS_ITS | Encounter Summary ---
[place] [address] Care Team Providers Care Patent Lawyer Name Role Phone Jovon Sifuentes MD Primary Care Provider Reason for Referral * Diagnostic Test (Routine) - Closed Specialty Diagnoses / Procedures Referred By Contac t Referred To Contact Radiology Diagnoses Cancer of base of tongue Procedures CT Chest w Contrast Sriram Contreras MD [facility] [place] [address] [facility] [place] [address] Referral ID Status Reason Start Date Expiration Date V isits Requested Visits Authorized [id number] Closed Specialty Service Requested 06/29/2019 06/28/2020 1 1 * Diagnostic Test (Routine) - Closed Specialty Diagnoses / Procedures Referred By Contac t Referred To Contact Radiology Diagnoses Cancer of base of tongue Procedures CT Neck Soft Tissue w Contrast (Generic) Sriram Contreras MD [facility] [place] [address] [facility] [place] [address] Referral ID Status Reason Start Date Expiration Date V isits Requested Visits Authorized [id number] Closed Specialty Service Requested 06/29/2019 06/28/2020 1 1 Reason for Visit * Reason Comments Follow-up Encounter Details Date Type Department Care Team (Late st Contact Info) Description 06/29/2019 9:40 AM EDT Office [place] [address] Sriram Contreras MD [facility] [place] [address] Cancer of base of tongue Social History [...] MD - 06/29/2019 9:40 AM EDT . [facility] [...] CPAP G47.33, Z99.89 ??? Adult BMI 30+ [id number] PAST MEDICAL HISTORY Past Medical History: Diagnosis [...] the Tele[employer] Unit and uploaded to the [employer] Service Dispatcher. Findings Nasal cavity Right nasal cavity examination [...] AM EDT Office Visit Hematology/Oncology at [address] [phone] Dmitry Bhatti MD [facility] HEMATOLOGY [place] [address] Ellen Mcrae APRN [facility] [place] [address] 01/30/2025 11:30 AM EDT Infusion Hematology Oncology at [address] [phone] documented as of this encounter [...] report, please contact the number below. Sriram Contrersa MD IMG CT ORDERABLES * CT Neck [...] tongue documented in this encounter Care Teams Patent Lawyer Relationship Specialty Start Date End Date Jovon Sifuentes MD [address] [place] [address] PCP - General 09/30/10 09/10/21 documented as of this encounter
--- OUTSIDE RECORDS SUMMARY | 2024-12-05 14:09 | XMS_ITS | Encounter Summary ---
[place] [address] Care Team Providers Care Leguillon Debeader Name Role Phone Jovon Sifuentes MD Primary Care Provider [phone] Reason for Visit * Audiology Exam (Routine) - Denied Specialty Diagnoses / Procedures Referred By Huma t Referred To Contact Audiology Diagnoses needs HAF and in trial check with next available provider (AP out on leave) Procedures HEARING AID FITTING Jovon Sifuentes MD [address] [place] [address] Valerie Toscano [facility] [address] Referral ID Status Reason Start Date Expiration Date Visits Re quested Visits Authorized [id number] Denied 09/11/2019 09/10/2020 1 0 Encounter Details Date Type Department Care Team (Latest Contact Info) Description 09/11/2019 8:45 AM EST Office Visit Audiology at [address] [phone] Valerie Toscano [facility] [address] Sensorineural hearing loss, asymmetrical; Fitting and adjustment [...] of hearing aid fit was completed via idrr-gsn-[id number] (REM) using the Desired Sensation Level 5 [...] the 30-day trial. Sabina Aundrealaverne Toscano, MS, [facility]A Clinical Coordinator, Adult Audiology Program [place] [phone] (fax) AMPLIFICATION EQUIPMENT LIST: HEARING AID RIGHT LEFT Make/Model/Style Phonak Audeo M30 R Phonak Audeo M30 R Casing Color White White Serial Number [id number] Battery Size Rechargeable Rechargeable Invoice number/date [id number] 08/24/19 [id number] 08/24/19 Other Comments PROGRAM/SETTINGS Fitting Algorithm DSL [...] HELENA / Dome specifics Size 03 M warning analyst small vented dome Size 03 M warning analyst small vented dome Impression Date Invoice number/date Other Comments ACCESSORIES Make/Model (color) Serial Number Warranty date Invoice number/date Settings Other Comments documented in this encounter Plan of Treatment Upcoming Encounters Date Type Department Care Team (Late st Contact Info) Description 01/30/2025 11:00 AM EDT Office Visit Hematology/Oncology at [address] [phone] Dmitry Bhatti MD [facility] DR [place] [address] Ellen Mcrae APRN [facility] [place] [address] 01/30/2025 11:30 AM EDT Infusion Hematology Oncology at [address] [phone] documented as of this encounter Visit Diagnoses Diagnosis Sensorineural hearing loss, asymmetrical Fitting and adjustment of hearing aid documented in this encounter Care Teams Leguillon Debeader Relationship Specialty Start Date End Date Jovon Sifuentes MD [address] [place] [address] PCP - General 09/30/10 09/10/21 documented as of this encounter
--- OUTSIDE RECORDS SUMMARY | 2024-12-05 14:09 | XMS_ITS | Encounter Summary ---
Author Organization [facility] [place] [address] Care Team Providers Care Ultrasound Supervisor Name Role Phone Jovon Sifuentes MD Primary Care Provider Encounter Details Date Type Department Care Team (Late Contact Info) Description 08/18/2019 Orders [place] [address] Angy Noriega Social History Tobacco Use Types [...] AM EDT Office Visit Hematology/Oncology at [address] [phone] Dmitry Bhatti MD [facility] DR HEMATOLOGY [place] [address] Ellen Mcrae APRN [facility] [place] [address] 01/30/2025 11:30 AM EDT Infusion Hematology Oncology at [address] [phone] documented as of this encounter Visit Diagnoses Not on filedocumented in this encounter Care Teams Ultrasound Supervisor Relationship Specialty Start Date End Date Jovon Siufentes MD [address] [place] [address] PCP - General 09/30/10 09/10/21 documented as of this encounter
--- OUTSIDE RECORDS SUMMARY | 2024-12-05 14:09 | XMS_ITS | Encounter Summary ---
Author Organization [facility] Address [facility] [place] [address] Care Team Providers Care Stonework Supervisor Name Role Phone Jovon Sifuentes MD Primary Care Provider [phone] Reason for Visit * Reason Comments Follow-up dysphagia Encounter Details Date Type Department Care Team (Late st Contact Info) Description 11/09/2019 10:20 AM EST Office [place] [address] Sriram Contreras MD [facility] [place] [address] Cancer of base of tongue; Sensorineural hearing [...] Contreras MD - 11/09/2019 10:20 AM EST [facility] OTOLARYNGOLOGY - HEAD AND NECK TUMOR CLINIC [...] is improving, needs liquid to help with buttermilk drier operator foods. Denies choking events. No [...] CPAP G47.33, Z99.89 ??? Adult BMI 30+ [id number] PAST MEDICAL HISTORY Past Medical History: Diagnosis [...] the TelePack Unit and uploaded to the [employer] Senior Hydrogeologist. Findings Nasal cavity normal mucosa of septum [...] number below. Electronically signed by: Saud Sloan [facility] ([phone]), at 11/09/2019 9:58 AM EXAMINATION: CT CHEST [...] number below. Electronically signed by: Alley Pham [facility] ([phone]), at 11/09/2019 10:50 AM ASSESSMENT/RECOMMENDATIONS Jose Bee [...] Bee's care. Russ Connolly PA-C Pager: 202511/09/2019 [facility] Otolaryngology Attending Note Patient seen and examined [...] 11:00 AM EDT Office Visit Hematology/Oncology at [address] [phone] Dmitry Bhatti MD [facility] [place] [address] Ellen Mcrae APRN [facility] [place] [address] 01/30/2025 11:30 AM EDT Infusion Hematology Oncology at [address] [phone] documented as of this encounter Visit Diagnoses Diagnosis 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 Sensorineural hearing loss (SNHL) of both ears documented in this encounter Care Teams Stonework Supervisor Relationship Specialty Start Date End Date Jovon Sifuentes MD [address] [place] [address] PCP - General 09/30/10 09/10/21 documented as of this encounter
--- OUTSIDE RECORDS SUMMARY | 2024-12-05 14:09 | XMS_ITS | Encounter Summary ---
[place] [address] Care Team Providers Care Plant Controller Name Role Phone Jovon Sifuentes MD Primary Care Provider Encounter Details Date Type Department Care Team (Latest Contact Info) Description 04/15/2020 1:45 PM EDT Clinical Support Audiology at [address] [phone] Estela Edmond AUD [facility] [place] [address] Sensorineural hearing loss, asymmetrical Social History Tobacco [...] company/invoice number) Replaced electronics, house and external clinical laboratory assistant ([employer]; [phone]; 04.10.20) CHARGE TO PATIENT? No S-REM VERIFICATION PERFORMED? Yes RE-PROGRAMMED? (ELINOR session date) N/A PROGRAMS AND V/C STATUS CHANGED? N/A PHYSICAL AND ACOUSTIC INSPECTION PERFORMED? N/A DELIVERY (patient pick-up, patient seen, aid mailed or handed off) Mailed to pt w/ pt's case [facility] LOANER OUT? OTHER AMPLIFICATION EQUIPMENT LIST: HEARING AID RIGHT LEFT Make/Model/Style Phonak Audeo M30 R Phonak Audeo M30 R Casing Color White White Serial Number [id number] Battery Size Rechargeable Rechargeable Invoice number/date [id number] 08/24/19 [id number] 08/24/19 Other Comments PROGRAM/SETTINGS Fitting Algorithm DSL [...] AYOUB) Lab Earmold / Slim tube / EHLENA / Dome specifics Size 03 M clinical laboratory assistant small vented dome Size 03 M clinical laboratory assistant small vented dome Impression Date Invoice number/date Other Comments ACCESSORIES Make/Model (color) Serial Number Warranty date Invoice number/date Settings Other Comments documented in this encounter Plan of Treatment Upcoming Encounters Date Type Department Care Team (Late st Contact Info) Description 01/30/2025 11:00 AM EDT Office Visit Hematology/Oncology at [address] [phone] Dmitry Bhatti MD [facility] DR HEMATOLOGY [place] [address] Ellen Mcrae APRN [facility] [place] [address] 01/30/2025 11:30 AM EDT Infusion Hematology Oncology at [address] [phone] documented as of this encounter Visit Diagnoses Diagnosis Sensorineural hearing loss, asymmetrical documented in this encounter Care Teams Plant Controller Relationship Specialty Start Date End Date Jovon Sifuentes MD [address] [place] [address] PCP - General 09/30/10 09/10/21 documented as of this encounter
--- OUTSIDE RECORDS SUMMARY | 2024-12-05 14:09 | XMS_ITS | Encounter Summary ---
Author Organization [facility] [place] [address] Care Team Providers Care Regional Project Manager Name Role Phone Jovon Sifuentes MD Primary Care Provider Encounter Details Date Type Department Care Team (Late st Contact Info) Description 06/06/2020 10:00 AM EDT Office [place] [address] Sriram Contreras MD [facility] [place] [address] Cancer of base of tongue Social History [...] MD - 06/06/2020 10:00 AM EDT . [facility] OTOLARYNGOLOGY HEAD AND NECK TUMOR CLINIC FOLLOW [...] CPAP G47.33, Z99.89 ??? Adult BMI 30+ [id number] PAST MEDICAL HISTORY Past Medical History: Diagnosis [...] the TelePack Unit and uploaded to the [employer] Rotogravure Press Operator. 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
--- OUTSIDE RECORDS SUMMARY | 2024-12-05 14:09 | XMS_ITS | Encounter Summary ---
[place] [address] Care Team Providers Care Carpenter Assistant Name Role Phone Paulino Finley MD Primary Care Provider [phone] Reason for Visit * Reason Onset Date Comments Prior Authorization 07/14/2023 Encounter Details Date Type Department Care Team (Late st Contact Info) Description 07/14/2023 Telephone Hematology [place] [phone] [place] Prior Authorization Social History Tobacco [...] 2:11 PM EDT Procedure Prior Authorization Procedure/Cpt: 83690 Ct chest Rationale: C61, C79.51 Health Plan: BS Vt Authorizing Vendor: [employer] Service Order/ Authorization #: Effective Date: 07/14/2023 - 09/11/2023 Status: Approved Rendering Facility: [address] [place] [address] Phone: TIN: [phone] documented in this encounter Plan of Treatment Upcoming Encounters Date Type Department Care Team (Late st Contact Info) Description 01/30/2025 11:00 AM EDT Office Visit Hematology/Oncology at [address] [phone] Dmitry Bhatti MD [facility] [address] [place] [address] Ellen Mcrae APRN [facility] [place] [address] 01/30/2025 11:30 AM EDT Infusion Hematology Oncology at [address] [phone] documented as of this encounter Visit Diagnoses Not on filedocumented in this encounter Care Teams Carpenter Assistant Relationship Specialty Start Date End Date Paulino Finley MD [address] [place] [address] PCP - General Emergency Medicine 09/11/21 documented as of this encounter
--- OUTSIDE RECORDS SUMMARY | 2024-12-05 14:09 | XMS_ITS | Encounter Summary ---
[place] [address] Care Team Providers Care Aircraft Mechanic Electrical And Radio Name Role Phone Jovon Sifuentes MD Primary Care Provider Encounter Details Date Type Department Care Team (Late Contact Info) Description 08/14/2019 [place] [phone] Angy Noriega Social History Tobacco Use Types [...] AM EDT Office Visit Hematology/Oncology at [address] [phone] Dmitry Bhatti MD [facility] DR [place] [address] Ellen Mcrae APRN [facility] [place] [address] 01/30/2025 11:30 AM EDT Infusion Hematology Oncology at [address] [phone] documented as of this encounter Visit Diagnoses Not on filedocumented in this encounter Care Teams Aircraft Mechanic Electrical And Radio Relationship Specialty Start Date End Date Jovon Sifuentes MD [address] [place] [address] PCP - General 09/30/10 09/10/21 documented as of this encounter
--- OUTSIDE RECORDS SUMMARY | 2024-12-05 14:09 | XMS_ITS | Encounter Summary ---
Author Organization [facility] [place] [address] Care Team Providers Care Director Women Name Role Phone Jovon Sifuentes MD Primary Care Provider [phone] Reason for Visit * Reason Comments Follow-up i had throat cancer and I have to come in for a 3 month check up Encounter Details Date Type Department Care Team (Late st Contact Info) Description 12/08/2018 9:20 AM EST Office [place] [address] Sriram Contreras MD [facility] [address] Cancer of base of tongue; Allergic rhinitis, [...] MD - 12/08/2018 9:20 AM EST . [facility] OTOLARYNGOLOGY HEAD AND NECK TUMOR CLINIC FOLLOW [...] CPAP G47.33, Z99.89 ??? Adult BMI 30+ [id number] PAST MEDICAL HISTORY Past Medical History: Diagnosis [...] the TelePack Unit and uploaded to the [employer] Parking Supervisor. 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
--- OUTSIDE RECORDS SUMMARY | 2024-12-05 14:09 | XMS_ITS | Encounter Summary ---
[place] [address] Care Team Providers Care Maintenance Superintendent Name Role Phone Paulino Finley MD Primary Care Provider [phone] Encounter Details Date Type Department Care Team (Latest Contact Info) Description 07/08/2023 1:58 PM EDT - 07/08/2023 11:59 PM EDT Hospital Encounter Hematology [place] [address] Malignant neoplasm of prostate metastatic to bone [...] 11:00 AM EDT Office Visit Hematology/Oncology at [address] [phone] Dmitry Bhatti MD [facility] [address] [place] [address] Ellen Mcrae APRN [facility] [place] [address] 01/30/2025 11:30 AM EDT Infusion Hematology Oncology at [address] [phone] documented as of this encounter Procedures Procedure [...] 2:07 PM EDT) Neutrophil % 48.6 % [facility] Neutrophil Absolute 2.59 1.70 - 6.10 x10(3)/[facility] Lymph % 36.2 % [facility] Lymphocytes Abs 1.9 0.9 - 3.2 x10(3)/[facility]OR[facility] Monocyte % 10.1 % [facility] Monocyte Abs 0.5 0.3 - 0.9 x10(3)/[facility] Eos % 3.0 % [facility] Eosinophils Abs 0.2 0.0 - 0.4 x10(3)/[facility] Basophil % 1.9 % [facility] Baso Absolute 0.1 0.0 - 0.1 x10(3)/[facility] LABORATORY Immature Gran % 0.20 % [facility] Comment: Immature granulocytes(IG's)percentage and absolute count will include metamyelocytes, myelocytes, and promyelocytes. Blood smears from CBCs yielding IG's will be scanned manually for concordance. If this scan disagrees with the automated IG or if promyelocytes are noted, a manual differential will be performed. Immature Gran Absolute 0.01 0.00 - 0.04 x10(3)/[facility] LABORATORY Blood 07/08/2023 2:07 PM EDT 07/08/2023 2:10 PM EDT Narrative Resulting Agency Comment Spec In Lab Dmitry Bhatti MD HEMATOLOGY ORDERABLE S [facility] [address] * (ABNORMAL) Hemogram (07/08/2023 2:07 PM EDT) White Blood Cell 5.3 4.0 - 9.5 x10(3)/mc L [facility] Red Blood Cell 4.85 4.58 - 5.54 x10(6)/mc L [facility] Hemoglobin 14.8 13.7 - 16.5 g/dL [facility] Hematocrit 44.9 40.5 - 48.5 % [facility] Mean Cell Volume 92.6 82.9 - 93.1 fL [facility] Mean Cell Hemoglobin 30.5 27.5 - 32.1 pg [facility] Mean Cell Hemoglobin Concentration 33.0 32.0 - 35.7 g/dL [facility] Platelet 161 145 - 357 x10(3)/mc L [facility] RDW Standard Deviation 47.9(H) 36.0 - 45.0 fL [facility] RDW coefficient of variation 14.0(H) 11.4 - 13.8 % [facility] Mean Platelet Volume 9.8 7.6 - 12.9 fL [facility] NRBC% auto 0.0 % [facility] NRBC Absolute 0.000 0.000 - 0.000 x10(3)/mc L [facility] Blood 07/08/2023 2:07 PM EDT 07/08/2023 2:10 PM EDT Narrative Resulting Agency Comment Spec In Lab Dmitry Bhatti MD HEMATOLOGY ORDERABLE S Performing Organization Address [facility] de Phone Number [facility] [place] [address] * (ABNORMAL) PSA (Ultrasensitive) (07/08/2023 2:07 PM EDT) Prostate Specific Antigen (Ultrasensitive) 18.80(H) 0.00 - 4.00 ng/mL [facility] Comment: PLEASE NOTE: The above reference [...] Bhatti MD CHEMISTRY ORDERABLES Performing Organization Address [facility]/State/ZIP Co de Phone Number [facility] [place] [address] * (ABNORMAL) Comprehensive metabolic panel (non-fasting) (07/08/2023 2:07 PM EDT) Glucose 73 65 - 199 mg/dL [facility] Comment:Diabetes: >=200 mg/d L plus symptoms Blood Urea Nitrogen 16 10 - 20 mg/dL [facility] Creatinine 1.12 0.80 - 1.50 mg/dL [facility] Sodium 143 135 - 145 mmol/L [facility] Potassium 4.4 3.5 - 5.0 mmol/L [facility] Comment: Please note: ??Patients with WBC >100,000 may have falsely elevated Potassium levels. ??For accurate Potassium quantification in these patients send serum separator tube (gold top) for subsequent determinations. ??Contact the Clinical Chemistry Laboratory if there are any questions. Chloride 109(H) 98 - 107 mmol/L [facility] Carbon Dioxide 24 22 - 31 mmol/L [facility] Anion Gap 10 5 - 15 mmol/L [facility] Calcium 9.4 8.5 - 10.5 mg/dL [facility] Protein, Total 7.2 6.1 - 8.0 g/dL [facility] Albumin 4.2 3.2 - 5.2 g/dL [facility] Aspartate Aminotransferase 17 0 - 39 unit/L [facility] Alanine Aminotransferase 17 0 - 55 unit/L [facility] Alkaline Phosphatase 407(H) 40 - 130 unit/L [facility] Bilirubin, Total 0.2 0.2 - 1.3 mg/dL [facility] Est Glomerular Filtration Rate 69 >=60 mL/min/1. 73 m?? [facility] Comment: This patient's estimated GFR was [...] In Lab Dmitry Bhatti MD CHEMISTRY ORDERABLES [facility] [place] [address] * (ABNORMAL) Testosterone, total (07/08/2023 2:07 PM EDT) Testosterone <0.12(L) 1.93 - 7.40 ng/mL [facility] Comment: Pediatric Reference Ranges: ? Males [...] Bhatti MD CHEMISTRY ORDERABLES Performing Organization Address City/State/[facility] Co de Phone Number [facility] [place] [address] documented in this encounter Visit Diagnoses Diagnosis Malignant neoplasm of prostate metastatic to bone Malignant neoplasm of prostate documented in this encounter Care Teams Maintenance Superintendent Relationship Specialty Start Date End Date Paulino Finley MD [address] [place] [address] PCP - General Emergency Medicine 09/11/21 documented as of this encounter
--- OUTSIDE RECORDS SUMMARY | 2024-12-05 14:09 | XMS_ITS | Encounter Summary ---
Author [place] [address] Care Team Providers Care Manager Corporate Responsibility Name Role Phone Jovon Sifuentes MD Primary Care Provider [phone] Reason for Visit * Reason Onset Date Comments Questions 05/20/2020 pre procedure ho ld of Eliquis Encounter Details Date Type Department Care Team (Late st Contact Info) Description 05/20/2020 Telephone Cardiology at [address] [phone] Flor Alba, RN Questions (pre procedure hold [...] [facility] (uri [phone]) requesting hold instructions for the Eliquis. He [...] AM EDT Office Visit Hematology/Oncology at [address] [phone] Dmitry Bhatti MD [facility] DR [place] [address] Ellen Mcrae APRN [facility] [place] [address] 01/30/2025 11:30 AM EDT Infusion Hematology Oncology at [address] [phone] documented as of this encounter Visit Diagnoses Not on filedocumented in this encounter Care Teams Manager Corporate Responsibility Relationship Specialty Start Date End Date Jovon Sifuentes MD [address] [place] [address] PCP - General 09/30/10 09/10/21 documented as of this encounter
--- OUTSIDE RECORDS SUMMARY | 2024-12-05 14:09 | XMS_ITS | Encounter Summary ---
Author Organization Formerly [facility] Address [facility] [place] [address] Care Team Providers Care Flight Tower Dispatcher Name Role Phone Paulino Finley MD Primary Care Provider [phone] Reason for Visit * Reason Comments Advice Only * Consultation (Routine) - Closed Specialty Diagnoses / Procedures Referred By Huma valladares Referred To Contact Hematology and Oncology Diagnoses Malignant neoplasm of prostate Procedures treatment options Dinesh Phelps MD [address] [place] [address] Dmitry Steven MD [facility] [address] [place] [address] Referral ID Status Reason Start Date Expiration Date Visits Re quested Visits Authorized [id number] Closed 06/14/2023 06/13/2024 1 1 Encounter Details Date Type Department Care Team (Late st Contact Info) Description 07/08/2023 1:00 PM EDT Office Visit [place] [address] Dmitry Steven MD [facility] [address] [place] [address] Malignant neoplasm of prostate metastatic to bone [...] fibrillation March 2017: noted in ED in [facility]. Previously noted to be paroxysmal. No awareness. 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 He is to Briana for 40 yrs. 4 children - All live in different states - [place]. Enjoys raising Beef Cattle and doing Civil War and Living History and shoot Black powder/Antique firearms. He enjoys builiding Firearms/Blacksmithing - Charcoal, [place], etc. Social Determinants of Health Financial Resource [...] adenocarcinoma, involving 1 of 1 core. - [place] score 4 + 5 = 9 (grade group 5), tumor extent 1 mm (15% of core). - Perineural invasion is identified. C. PROSTATE, RIGHT MID LATERAL, NEEDLE CORE BIOPSY: - Prostatic adenocarcinoma, involving 1 of 1 core. - [place] score 5 + 4 = 9 (grade group 5), tumor extent 10 mm (80% of core). D. PROSTATE, RIGHT MID MEDIAL, NEEDLE CORE BIOPSY: - Prostatic adenocarcinoma, involving 1 of 1 core. - [place] score 4 + 5 = 9 (grade group 5), tumor extent 9 mm (80% of core). E. PROSTATE, RIGHT APEX LATERAL, NEEDLE CORE BIOPSY: - Prostatic adenocarcinoma, involving 1 of 1 core. - [place] score 5 + 4 = 9 (grade [...] adenocarcinoma, involving 1 of 1 core. - [place] score 4 + 3 = 7 (grade [...] adenocarcinoma, involving 1 of 1 core. - [place] score 5 + 4 = 9 (grade [...] Food and Drug Administration approved darolutamide (Nubeqa, Note.) tablets in combination with docetaxel for adult patients with metastatic hormone-sensitive prostate cancer (mHSPC). Efficacy was based on ARASENS ([id number]), a randomized, multicenter, double- blind, placebo-controlled clinical trial in 1306 patients with mHSPC. Patients were randomized to receive either darolutamide 600 mg orally twice daily plus docetaxel 75 mg/m2 intravenously administered every 3 weeks forup to 6 cycles or docetaxel plus placebo. All patients received a gonadotropin-releasing hormone analog concurrently or had a bilateral orchiectomy. The primary efficacy measure was overall survival (OS). Blxz-hf-aehk progression was an additional efficacy measure. Median OS was not reached (NR) (95% CI: NR, NR) in the darolutamide plus docetaxelarm and 48.9 months (95% CI: 44.4, NR) in docetaxel plus placebo arm (HR 0.68; 95% CI: 0.57, 0.80; p<0.0001). Treatment with darolutamide and docetaxel resulted in a statistically significant delay in utgo-eh-rnje progression (HR 0.79; 95% CI: 0.66, 0.95; [...] CBC, CMP, PSA, testosterone, chemotherapy teaching by MANAGER MINING and first cycle of docetaxel with Becky [...] 11:00 AM EDT Office Visit Hematology/Oncology at [address] [phone] Dmitry Steven MD [facility] DR [place] [address] Ellen Mcrae APRN [facility] [place] [address] 01/30/2025 11:30 AM EDT Infusion Hematology Oncology at [address] [phone] documented as of this encounter Results * (ABNORMAL) Testosterone, total (07/08/2023 2:07 PM EDT) [facility] [address] Testosterone <0.12(L) 1.93 - 7.40 ng/mL [facility] Comment: Pediatric Reference Ranges: ? [...] In Lab Dmitry Steven MD CHEMISTRY ORDERABLES [facility] [place] [address] * (ABNORMAL) Comprehensive metabolic panel (non-fasting) (07/08/2023 2:07 PM EDT) Glucose 73 65 - 199 mg/dL [facility] Comment:Diabetes: >=200 mg/d L plus symptoms Blood Urea Nitrogen 16 10 - 20 mg/dL [facility] Creatinine 1.12 0.80 - 1.50 mg/dL [facility] Sodium 143 135 - 145 mmol/L [facility] Potassium 4.4 3.5 - 5.0 mmol/L [facility] Comment: Please note: ??Patients with WBC >100,000 may have falsely elevated Potassium levels. ??For accurate Potassium quantification in these patients send serum separator tube (gold top) for subsequent determinations. ??Contact the Clinical Chemistry Laboratory if there are any questions. Chloride 109(H) 98 - 107 mmol/L [facility] Carbon Dioxide 24 22 - 31 mmol/L [facility] Anion Gap 10 5 - 15 mmol/L [facility] Calcium 9.4 8.5 - 10.5 mg/dL [facility] Protein, Total 7.2 6.1 - 8.0 g/dL [facility] Albumin 4.2 3.2 - 5.2 g/dL [facility] Aspartate Aminotransferase 17 0 - 39 unit/L [facility] Alanine Aminotransferase 17 0 - 55 unit/L [facility] Alkaline Phosphatase 407(H) 40 - 130 unit/L [facility] Bilirubin, Total 0.2 0.2 - 1.3 mg/dL [facility] Est Glomerular Filtration Rate 69 >=60 mL/min/1. 73 m?? [facility] Comment: This patient's estimated GFR [...] In Lab Dmitry Steven MD CHEMISTRY ORDERABLES Performing Organization Address [facility] Co de Phone Number [facility] [place] [address] * (ABNORMAL) PSA (Ultrasensitive) (07/08/2023 2:07 PM EDT) Prostate Specific Antigen (Ultrasensitive) 18.80(H) 0.00 - 4.00 ng/mL [facility] Comment: PLEASE NOTE: The above [...] In Lab Dmitry Steven MD CHEMISTRY ORDERABLES Performing Organization Address [facility] Co de Phone Number [facility] [place] [address] documented in this encounter Visit Diagnoses Diagnosis Malignant neoplasm of prostate metastatic to bone- Primary Malignant neoplasm of prostate Androgen deprivation therapy Encounter for therapeutic drug monitoring documented in this encounter Care Teams Flight Tower Dispatcher Relationship Specialty Start Date End Date Paulino Finley MD [address] [place] [address] PCP - General Emergency Medicine 09/11/21 documented as of this encounter
--- OUTSIDE RECORDS SUMMARY | 2024-12-05 14:09 | XMS_ITS | Encounter Summary ---
[place] [address] Care Team Providers Care Machine Assembler Supervisor Name Role Phone Jovon Sifuentes MD Primary Care Provider Encounter Details Date Type Department Care Team (Late Contact Info) Description 08/18/2019 Telephone [place] [phone] Angy Noriega Social History Tobacco Use Types [...] 11:00 AM EDT Office Visit Hematology/Oncology at [address] [phone] Dmitry Bhatti MD [facility] DR HEMATOLOGY [place] [address] Ellen Mcrae APRN [facility] [place] [address] 01/30/2025 11:30 AM EDT Infusion Hematology Oncology at [address] [phone] documented as of this encounter Visit Diagnoses Not on filedocumented in this encounter Care Teams Machine Assembler Supervisor Relationship Specialty Start Date End Date Jovon Sifuentes MD [address] [place] [address] PCP - General 09/30/10 09/10/21 documented as of this encounter
--- OUTSIDE RECORDS SUMMARY | 2024-12-05 14:09 | XMS_ITS | Encounter Summary ---
[place] [address] Care Team Providers Care Product Info Specialist Name Role Phone Jovon Sifuentes MD Primary Care Provider Encounter Details Date Type Department Care Team (Latest Contact Info) Description 06/12/2021 8:00 AM EDT Office Visit Audiology at [address] [phone] Valerie Toscano AUD [facility] [place] [address] Sensorineural hearing loss, asymmetrical Social History Tobacco [...] good working order. Karla Byrnes, Audiology Doctoral Manager Fire assisted during today's visit under my full [...] for any interim concerns. Sabina Toscano MS, [facility] Clinical Coordinator, Adult Audiology Program [place] [phone] (fax) AMPLIFICATION EQUIPMENT LIST: HEARING AID RIGHT LEFT Make/Model/Style Phonak Audeo M30 R Phonak Audeo M30 R Casing Color White White Serial Number [id number] Battery Size Rechargeable Rechargeable Invoice number/date [id number] 08/24/19 [id number] 08/24/19 Other Comments PROGRAM/SETTINGS Fitting Algorithm DSL [...] HELENA / Dome specifics Size 03 M modern languages professor small vented dome Size 03 M modern languages professor small vented dome Impression Date Invoice number/date Other Comments ACCESSORIES Make/Model (color) Serial Number Warranty date Invoice number/date Settings Other Comments documented in this encounter Plan of Treatment Upcoming Encounters Date Type Department Care Team (Late st Contact Info) Description 01/30/2025 11:00 AM EDT Office Visit Hematology/Oncology at [address] [phone] Dmitry Bhatti MD [facility] DR HEMATOLOGY [place] [address] Ellen Mcrae APRN [facility] DR [place]ICAL [place] [address] 01/30/2025 11:30 AM EDT Infusion Hematology Oncology at [address] [phone] documented as of this encounter Visit Diagnoses Diagnosis Sensorineural hearing loss, asymmetrical documented in this encounter Care Teams Product Info Specialist Relationship Specialty Start Date End Date Jovon Sifuentes MD [address] [place] [address] PCP - General 09/30/10 09/10/21 documented as of this encounter
--- OUTSIDE RECORDS SUMMARY | 2024-12-05 14:09 | XMS_ITS | Encounter Summary ---
Author Organization [facility] [place] [address] Care Team Providers Care Dog License Officer Supervisor Name Role Phone Jovon Sifuentes MD Primary Care Provider Encounter Details Date Type Department Care Team (Late st Contact Info) Description 12/05/2020 11:30 AM EST Office [place] [address] Sriram Contreras MD [facility] [place] [address] Cancer of base of tongue Social History [...] MD - 12/05/2020 11:30 AM EST . [facility] OTOLARY[facility] HEAD AND NECK TUMOR [...] CPAP G47.33, Z99.89 ??? Adult BMI 30+ [id number] PAST MEDICAL HISTORY Past Medical History: Diagnosis [...] the [employer] [facility] and uploaded to the [email or web address] Stage Manager. 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
--- OUTSIDE RECORDS SUMMARY | 2024-12-05 14:09 | XMS_ITS | Encounter Summary ---
Author Organization [facility] [place] [address] Care Team Providers Care Presiding Judge Name Role Phone Paulino Finley MD Primary Care Provider [phone] Encounter Details Date Type Department Care Team (Late st Contact Info) Description 07/13/2023 Notes Only [place] [address] Casi Dong Social History Tobacco Use Types [...] 11:00 AM EDT Office Visit Hematology/Oncology at [address] [phone] Dmitry Bhatti MD [facility] [place] [address] Ellen Mcrae APRN [facility] [place] [address] 01/30/2025 11:30 AM EDT Infusion Hematology Oncology at [address] [phone] documented as of this encounter Visit Diagnoses Not on filedocumented in this encounter Care Teams Presiding Judge Relationship Specialty Start Date End Date Paulino Finley MD [address] [place] [address] PCP - General Emergency Medicine 09/11/21 documented as of this encounter
--- OUTSIDE RECORDS SUMMARY | 2024-12-05 14:09 | XMS_ITS | Encounter Summary ---
[place] [address] Care Team Providers Care Fitting Supervisor Name Role Phone Jovon Sifuentes MD Primary Care Provider [phone] Encounter Details Date Type Department Care Team (Latest Contact Info) Description 12/05/2020 9:30 AM EST Office Visit Audiology at [address] [phone] Valerie Toscano, [facility] [place] [address] Sensorineural hearing loss, asymmetrical Social History Tobacco [...] was noted in the receivers and the scrap baller wires were distorted. ?? Both instruments were [...] the likelihood of distorting and/or damaging the scrap baller wires. ?? Verification of aided response was completed using SREM and d-jossue measures. Results were consistent with previous findings. Adjustments were not made. ?? An audiologic evaluation and hearing aid check-up are advised in one year. He knows to contact the clinic sooner for any interim concerns. Sabina Toscano MS, [facility] Clinical Coordinator, [place] [address] (fax) AMPLIFICATION EQUIPMENT LIST: HEARING AID RIGHT LEFT Make/Model/Style Phonak Audeo M30 R Phonak Audeo M30 R Casing Color White White Serial Number [id number] Battery Size Rechargeable Rechargeable Invoice number/date [id number] 08/24/19 [id number] 08/24/19 Other Comments PROGRAM/SETTINGS Fitting Algorithm DSL [...] HELENA / Dome specifics Size 03 M scrap baller small vented dome Size 03 M scrap baller small vented dome Impression Date Invoice number/date Other Comments ACCESSORIES Make/Model (color) Serial Number Warranty date Invoice number/date Settings Other Comments documented in this encounter Plan of Treatment Upcoming Encounters Date Type Department Care Team (Late st Contact Info) Description 01/30/2025 11:00 AM EDT Office Visit Hematology/Oncology at [address] [phone] [facility] DR HEMATOLOGY [place] [address] [facility] [place] [address] 01/30/2025 11:30 AM EDT Infusion Hematology Oncology at [address] [phone] documented as of this encounter Visit Diagnoses Diagnosis Sensorineural hearing loss, asymmetrical documented in this encounter Care Teams Fitting Supervisor Relationship Specialty Start Date End Date Jovon Sifuentes MD [address] [place] [address] PCP - General 09/30/10 09/10/21 documented as of this encounter
--- OUTSIDE RECORDS SUMMARY | 2024-12-05 14:09 | XMS_ITS | Encounter Summary ---
Author Organization [facility] [place] [address] Care Team Providers Care Gum Dipper Name Role Phone Jovon Sifuentes MD Primary Care Provider [phone] Reason for Visit * Reason Comments Follow-up Encounter Details Date Type Department Care Team (Late st Contact Info) Description 03/02/2019 10:20 AM EDT Office [place] [address] Sriram Contreras MD [facility] [place] [address] Cancer of base of tongue; Bilateral impacted [...] MD - 03/02/2019 10:20 AM EDT . [facility] OT[facility] HEAD AND [...] CPAP G47.33, Z99.89 ??? Adult BMI 30+ [id number] PAST MEDICAL HISTORY Past Medical History: Diagnosis [...] larynx. The examination was recorded on the [facility] and uploaded to the [employer] Profiler. Findings Nasal cavity Right nasal cavity examination [...] AM EDT Office Visit Hematology/Oncology at [address] [phone] Dmitry Bhatti MD [facility] [place] [address] Ellen Mcrae APRN 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
--- OUTSIDE RECORDS SUMMARY | 2024-12-05 14:09 | XMS_ITS | Encounter Summary ---
Author [place] [address] Care Team Providers Care Automobile Rental Representative Name Role Phone Jovon Sifuentes MD Primary Care Provider Encounter Details Date Type Department Care Team (Late st Contact Info) Description 10/03/2018 Telephone [place] [phone] Leora Lucas Social History Tobacco Use Types [...] if they have received the letter from [facility] regarding they needing additional info about the inpatient services he received during 07/13/17 surgery and also to call Marina on [phone] if they have billing questions. documented in this encounter Plan of Treatment Upcoming Encounters Date Type Department Care Team (Late st Contact Info) Description 01/30/2025 11:00 AM EDT Office Visit Hematology/Oncology at [address] [phone] Dmitry Bhatti MD [facility] DR [place] [address] Ellen Mcrae APRN [facility] [place] [address] 01/30/2025 11:30 AM EDT Infusion Hematology Oncology at [address] [phone] documented as of this encounter Visit Diagnoses Not on filedocumented in this encounter Care Teams Automobile Rental Representative Relationship Specialty Start Date End Date Jovon Sifuentes MD [address] [place] [address] PCP - General 09/30/10 09/10/21 documented as of this encounter
--- OUTSIDE RECORDS SUMMARY | 2024-12-05 14:09 | XMS_ITS | Encounter Summary ---
[place] [address] Care Team Providers Care Rerolling Machine Operator Name Role Phone Jovon Sifuentes MD Primary Care Provider [phone] Reason for Visit * Reason Onset Date Comments Appointment 07/04/2019 Encounter Details Date Type Department Care Team (Late Contact Info) Description 07/04/2019 Telephone Audiology at [address] [phone] Nawaf Kendrick Appointment Social History Tobacco Use [...] AM EDT Office Visit Hematology/Oncology at [address] [phone] Dmitry Bhatti MD [facility] DR HEMATOLOGY [place] [address] Ellen Mcrae APRN [facility] [place] [address] 01/30/2025 11:30 AM EDT Infusion Hematology Oncology at [address] [phone] documented as of this encounter Visit Diagnoses Not on filedocumented in this encounter Care Teams Rerolling Machine Operator Relationship Specialty Start Date End Date Jovon Sifuentes MD [address] [place] [address] PCP - General 09/30/10 09/10/21 documented as of this encounter
--- OUTSIDE RECORDS SUMMARY | 2024-12-05 14:09 | XMS_ITS | Encounter Summary ---
[place] [address] Care Team Providers Care Inspector Heating And Refrigeration Name Role Phone Jovon Sifuentes MD Primary Care Provider [phone] Encounter Details Date Type Department Care Team (Latest Contact Info) Description 09/25/2019 9:30 AM EST Office Visit Audiology at [address] [phone] Valerie Toscano, [facility] [place] [address] Sensorineural hearing loss, asymmetrical Social History Tobacco [...] with any interim concerns. Sabina Toscano MS, [facility] Clinical Coordinator, [place] [address] (fax) AMPLIFICATION EQUIPMENT LIST: HEARING AID RIGHT LEFT Make/Model/Style Phonak Audeo M30 R Phonak Audeo M30 R Casing Color White White Serial Number [id number] Battery Size Rechargeable Rechargeable Invoice number/date [id number] 08/24/19 [id number] 10/17/19 Other Comments PROGRAM/SETTINGS Fitting Algorithm DSL [...] HELENA / Dome specifics Size 03 M propagation manager small vented dome Size 03 M propagation manager small vented dome Impression Date Invoice number/date Other Comments ACCESSORIES Make/Model (color) Serial Number Warranty date Invoice number/date Settings Other Comments documented in this encounter Plan of Treatment Upcoming Encounters Date Type Department Care Team (Late st Contact Info) Description 01/30/2025 11:00 AM EDT Office Visit Hematology/Oncology at [address] [phone] Dmitry Bhatti MD [facility] DR [place] [address] Ellen Mcrae APRN [facility] [place] [address] 01/30/2025 11:30 AM EDT Infusion Hematology Oncology at [address] [phone] documented as of this encounter Visit Diagnoses Diagnosis Sensorineural hearing loss, asymmetrical documented in this encounter Care Teams Inspector Heating And Refrigeration Relationship Specialty Start Date End Date Jovon Sifuentes MD [address] [place] [address] PCP - General 09/30/10 09/10/21 documented as of this encounter
--- OUTSIDE RECORDS SUMMARY | 2024-12-05 14:09 | XMS_ITS | Encounter Summary ---
[place] [address] Care Team Providers Care Pipeline Dispatch Operator Name Role Phone Jvoon Sifuentes MD Primary Care Provider [phone] Encounter Details Date Type Department Care Team (Late Contact Info) Description 07/05/2018 Telephone [place] [phone] [place] Social History Tobacco Use Types [...] AM EDT Office Visit Hematology/Oncology at [address] [phone] Dmitry Bhatti MD [facility] DR [place] [address] Ellen Mcrae APRN [facility] [place] [address] 01/30/2025 11:30 AM EDT Infusion Hematology Oncology at [address] [phone] documented as of this encounter Visit Diagnoses Not on filedocumented in this encounter Care Teams Pipeline Dispatch Operator Relationship Specialty Start Date End Date Jovon Sifuentes MD [address] [place] [address] PCP - General 09/30/10 09/10/21 documented as of this encounter
--- OUTSIDE RECORDS SUMMARY | 2024-12-05 14:10 | XMS_ITS | Encounter Summary ---
[place] [address] Care Team Providers Care Top Frame Fitter Name Role Phone Jovon Sifuentes MD Primary Care Provider Encounter Details Date Type Department Care Team (Late Contact Info) Description 08/19/2017 Telephone [place] [phone] Vane Cardona Social History Tobacco Use Types [...] Cardona - 08/19/2017 10:37 AM EDT Sent TIN POT OPERATOR referral fax to Roc Patrick at [phone]. Left message with Roc Patrick's office to confirm the fax and to ask if they needed additional information documented in this encounter Plan of Treatment Upcoming Encounters Date Type Department Care Team (Late Contact Info) Description 01/30/2025 11:00 AM EDT Office Visit Hematology/Oncology at [address] [phone] Dmitry Bhatti MD [facility] DR HEMATOLOGY [place] [address] Ellen Mcrae APRN [facility] [place] [address] 01/30/2025 11:30 AM EDT Infusion Hematology Oncology at [address] [phone] documented as of this encounter Visit Diagnoses Not on filedocumented in this encounter Care Teams Top Frame Fitter Relationship Specialty Start Date End Date Jovon Sifuentes MD [address] [place] [address] PCP - General 09/30/10 09/10/21 documented as of this encounter
--- OUTSIDE RECORDS SUMMARY | 2024-12-05 14:10 | XMS_ITS | Encounter Summary ---
[place] [address] Care Team Providers Care Md Do Resident Urgent Care Name Role Phone Jovon Sifuentes MD Primary Care Provider Encounter Details Date Type Department Care Team (Late Contact Info) Description 12/01/2017 Telephone [place] [phone] Dina Alonzo RN Social History Tobacco Use [...] AM EDT Office Visit Hematology/Oncology at [address] [phone] Dmitry Bhatti MD [facility] DR HEMATOLOGY [place] [address] Ellen Mcrae APRN [facility] [place] [address] 01/30/2025 11:30 AM EDT Infusion Hematology Oncology at [address] [phone] documented as of this encounter Visit Diagnoses Not on filedocumented in this encounter Care Teams Md Do Resident Urgent Care Relationship Specialty Start Date End Date Jovon Sifuentes MD [address] [place] [address] PCP - General 09/30/10 09/10/21 documented as of this encounter
--- OUTSIDE RECORDS SUMMARY | 2024-12-05 14:10 | XMS_ITS | Encounter Summary ---
Author Organization [facility] [place] [address] Care Team Providers Care Nutrition Internship Name Role Phone Jovon Sifuentes MD Primary Care Provider Encounter Details Date Type Department Care Team (Late st Contact Info) Description 09/20/2017 Telephone Hematology [place] [address] Geovanna Deleon MD [facility] [address] [place] [address] Social History Tobacco Use Types Packs/Day Years [...] 11:00 AM EDT Office Visit Hematology/Oncology at [address] [phone] Dmitry Bhatti MD [facility] [address] [place] [address] Ellen Mcrae APRN [facility] [place] [address] 01/30/2025 11:30 AM EDT Infusion Hematology Oncology at [address] [phone] documented as of this encounter Visit Diagnoses Not on filedocumented in this encounter Care Teams Nutrition Internship Relationship Specialty Start Date End Date Jovon Sifuentes MD [address] [place] [address] PCP - General 09/30/10 09/10/21 documented as of this encounter
--- OUTSIDE RECORDS SUMMARY | 2024-12-05 14:10 | XMS_ITS | Encounter Summary ---
[place] [address] Care Team Providers Care Canoe Inspector Name Role Phone Jovon Sifuentes MD Primary Care Provider Reason for Referral * Diagnostic Test (Routine) - Closed Specialty Diagnoses / Procedures Referred By Huma t Referred To Contact Radiology Diagnoses Cancer of base of tongue Procedures MRI Soft Tissue Neck wwo Contrast MRI Soft Tissue Neck w Contrast Sriram Contreras MD [facility] [place] [address] [place] [address] Referral ID Status Reason Start Date Expiration Date V isits Requested Visits Authorized [id number] Closed Specialty Service Requested 11/05/2017 01/03/2018 1 1 Reason for Visit * Diagnostic Test (Routine) - Closed Specialty Diagnoses / Procedures Referred By Huma valladares Referred To Contact Radiology Diagnoses Cancer of base of tongue Procedures MRI Soft Tissue Neck wwo Contrast MRI Soft Tissue Neck w Contrast Sriram Contreras MD [facility] [place] [address] [place] [address] Referral ID Status Reason Start Date Expiration Date V isits Requested Visits Authorized [id number] Closed Specialty Service Requested 11/05/2017 01/03/2018 1 1 Encounter Details Date Type Department Care Team (Latest Contact Info) Description 11/11/2017 12:23 PM EST - 11/11/2017 11:59 PM EST Hospital Encounter MRI at [facility] [place] [address] Sriram Contreras MD [facility] [place] [address] Cancer of base of tongue Discharge Disposition: [...] AM EDT Office Visit Hematology/Oncology at [address] [phone] Dmitry Bhatti MD [facility] DR HEMATOLOGY [place] [address] Ellen Mcrae APRN [facility] [place] [address] 01/30/2025 11:30 AM EDT Infusion Hematology Oncology at [address] [phone] documented as of this encounter Procedures Procedure [...] mLs documented in this encounter Care Teams Canoe Inspector Relationship Specialty Start Date End Date Jovon Sifuentes MD [address] [place] [address] PCP - General 09/30/10 09/10/21 documented as of this encounter
--- OUTSIDE RECORDS SUMMARY | 2024-12-05 14:10 | XMS_ITS | Encounter Summary ---
Author Organization [facility] Address [facility] [place] [address] Care Team Providers Care Agate Setter Name Role Phone Jovon Sifuentes MD Primary Care Provider [phone] Reason for Visit * Reason Comments Follow-up contiues with some n sheryl and throat swelling, continues to clear his throat alot, using Mucinex with some effect. tried claritin yesterday it worked a little better. Encounter Details Date Type Department Care Team (Late st Contact Info) Description 04/14/2018 10:15 AM EDT Office Visit [place] [phone] Sriram Contreras MD [facility] [place] [address] Cancer of base of tongue; Allergic rhinitis, [...] MD - 04/14/2018 10:15 AM EDT . [facility] OTOLARYNGOLOGY HEAD AND NECK [...] CPAP G47.33, Z99.89 ??? Adult BMI 30+ [id number] PAST MEDICAL HISTORY Past Medical History: Diagnosis [...] the TelePack Unit and uploaded to the [employer] Administration Advisor. 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
--- OUTSIDE RECORDS SUMMARY | 2024-12-05 14:10 | XMS_ITS | Encounter Summary ---
Author Organization [facility] [place] [address] Care Team Providers Care Tmd Teacher Name Role Phone Jovon Sifuentes MD Primary Care Provider [phone] Encounter Details Date Type Department Care Team (Late st Contact Info) Description 02/10/2018 10:20 AM EDT Office [place] [address] Sriram Contreras MD [facility] [place] [address] Cancer of base of tongue Social History [...] Contreras MD - 02/10/2018 10:20 AM EDT [facility] OT[facility] HEAD AND NECK TUMOR CLINIC FOLLOW [...] CPAP G47.33, Z99.89 ??? Adult BMI 30+ [id number] PAST MEDICAL HISTORY Past Medical History: Diagnosis [...] the TelePack Unit and uploaded to the [employer] Worker. 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
--- OUTSIDE RECORDS SUMMARY | 2024-12-05 14:10 | XMS_ITS | Encounter Summary ---
[place] [address] Care Team Providers Care Dot Net Architect Name Role Phone Jovon Sifuentes MD Primary Care Provider Encounter Details Date Type Department Care Team (Late Contact Info) Description 07/29/2017 Telephone [place] [phone] Vane Cardona Social History Tobacco Use Types [...] AM EDT Office Visit Hematology/Oncology at [address] [phone] Dmitry Bhatti MD [facility] DR HEMATOLOGY [place] [address] Ellen Mcrae APRN [facility] [place] [address] 01/30/2025 11:30 AM EDT Infusion Hematology Oncology at [address] [phone] documented as of this encounter Visit Diagnoses Not on filedocumented in this encounter Care Teams Dot Net Architect Relationship Specialty Start Date End Date Jovon Sifuentes MD [address] [place] [address] PCP - General 09/30/10 09/10/21 documented as of this encounter
--- OUTSIDE RECORDS SUMMARY | 2024-12-05 14:10 | XMS_ITS | Encounter Summary ---
Author Organization [facility] [place] [address] Care Team Providers Care Communication Clerk Name Role Phone Jovon Sifuentes MD Primary Care Provider Encounter Details Date Type Department Care Team (Late st Contact Info) Description 08/30/2017 1:30 PM EDT Office Visit Hematology [place] [address] Geovanna Deleon MD [facility] [place] [address] Recurrent pulmonary embolism Social History Tobacco Use [...] Deleon MD - 08/30/2017 1:30 PM EDT [facility] Hemophilia and Thrombosis Center [place] [address] THROMBOSIS FOLLOW-UP DATE OF VISIT 08/30/2017 Patient [...] 3 years ) 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 Fevers/chills/sweats No Recent [...] AM EDT Office Visit Hematology/Oncology at [address] [phone] Dmitry Bhatti MD [facility] [place] [address] Ellen Mcrae APRN [facility] [place] [place] [address] 01/30/2025 11:30 AM EDT Infusion Hematology Oncology at [address] [phone] documented as of this encounter Visit Diagnoses Diagnosis Recurrent pulmonary embolism Other pulmonary embolism and infarction documented in this encounter Care Teams Communication Clerk Relationship Specialty Start Date End Date Jovon Sifuentes MD [address] [place] [address] PCP - General 09/30/10 09/10/21 documented as of this encounter
--- OUTSIDE RECORDS SUMMARY | 2024-12-05 14:10 | XMS_ITS | Encounter Summary ---
[place] [address] Care Team Providers Care Dowel Inserting Machine Operator Name Role Phone Jovon Sifuentes MD Primary Care Provider [phone] Encounter Details Date Type Department Care Team (Late Contact Info) Description 07/04/2018 Telephone [place] [phone] [place] Social History Tobacco Use Types [...] 11:00 AM EDT Office Visit Hematology/Oncology at [address] [phone] Dmitry Bhatti MD [facility] [address] [place] [address] Ellen Mcrae APRN [facility] [place] [address] 01/30/2025 11:30 AM EDT Infusion Hematology Oncology at [address] [phone] documented as of this encounter Visit Diagnoses Not on filedocumented in this encounter Care Teams Dowel Inserting Machine Operator Relationship Specialty Start Date End Date Jovon Sifuentes MD [address] [place] [address] PCP - General 09/30/10 09/10/21 documented as of this encounter
--- OUTSIDE RECORDS SUMMARY | 2024-12-05 14:10 | XMS_ITS | Encounter Summary ---
Author Organization [facility] [place] [address] Care Team Providers Care Bag Loader Name Role Phone Jovon Sifuentes MD Primary Care Provider [phone] Encounter Details Date Type Department Care Team (Late st Contact Info) Description 08/07/2017 Telephone [place] [address] Hilton Cheney PA [facility] [place] [address] Social History Tobacco Use Types Packs/Day Years [...] AM EDT Office Visit Hematology/Oncology at [address] [phone] Dmitry Bhatti MD [facility] DR [place] [address] Ellen Mcrae APRN [facility] [place] [address] 01/30/2025 11:30 AM EDT Infusion Hematology Oncology at [address] [phone] documented as of this encounter Visit Diagnoses Not on filedocumented in this encounter Care Teams Bag Loader Relationship Specialty Start Date End Date Jovon Sifuentes MD [address] [place] [address] PCP - General 09/30/10 09/10/21 documented as of this encounter
--- OUTSIDE RECORDS SUMMARY | 2024-12-05 14:10 | XMS_ITS | Encounter Summary ---
Author Organization [facility] [place] [address] Care Team Providers Care Educational Guidance Counselor Name Role Phone Jovon Sifuentes MD Primary Care Provider Encounter Details Date Type Department Care Team (Late st Contact Info) Description 12/02/2017 Telephone [place] [address] Sriram Contreras MD [facility] [place] [address] Social History Tobacco Use Types Packs/Day Years [...] AM EDT Office Visit Hematology/Oncology at [address] [phone] Dmitry Bhatti MD [facility] DR HEMATOLOGY [place] [address] Ellen Mcrae APRN [facility] DR [place] [address] 01/30/2025 11:30 AM EDT Infusion Hematology Oncology at [address] [phone] documented as of this encounter Visit Diagnoses Not on filedocumented in this encounter Care Teams Educational Guidance Counselor Relationship Specialty Start Date End Date Jovon Sifuentes MD [address] [place] [address] PCP - General 09/30/10 09/10/21 documented as of this encounter
--- OUTSIDE RECORDS SUMMARY | 2024-12-05 14:10 | XMS_ITS | Encounter Summary ---
[place] [address] Care Team Providers Care Commission Sales Associate Name Role Phone Jovon Sifuentes MD Primary Care Provider Encounter Details Date Type Department Care Team (Latest Contact Info) Description 08/03/2017 Multidisciplinary Ca re Committee [place] [address] Zafar Madera MD [facility] [place] [address] Social History Tobacco Use Types Packs/Day Years [...] biopsy. Developed acute PE and transferred to [facility] for management. Staging PET-CT showed possible uptake [...] AM EDT Office Visit Hematology/Oncology at [address] [phone] Dmitry Bhatti MD [facility] DR [place] [address] Ellen Mcrae APRN [facility] [place] [address] 01/30/2025 11:30 AM EDT Infusion Hematology Oncology at [address] [phone] documented as of this encounter Visit Diagnoses Not on filedocumented in this encounter Care Teams Commission Sales Associate Relationship Specialty Start Date End Date Jovon Sifuentes MD [address] [place] [address] PCP - General 09/30/10 09/10/21 documented as of this encounter
--- OUTSIDE RECORDS SUMMARY | 2024-12-05 14:10 | XMS_ITS | Encounter Summary ---
Author Organization [facility] [place] [address] Care Team Providers Care Sieve Repairer Name Role Phone Jovon Sifuentes MD Primary Care Provider Encounter Details Date Type Department Care Team (Late st Contact Info) Description 01/25/2018 12:00 PM EDT Office Visit Hematology [place] [address] Geovanna Deleon MD [facility] DR HEMATOLOGY [place] [address] Recurrent pulmonary embolism Social History Tobacco Use [...] Deleon MD - 01/25/2018 12:00 PM EDT [facility] Hemophilia [facility] Thrombosis Center [place], [place] [address] THROMBOSIS FOLLOW-UP DATE OF VISIT 01/25/2018 Patient [...] history of stroke. 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 I just want to make surethat he [...] - I will contact Dr. Lr, his printing film stripper and make sure that he agrees that [...] will call him after discussing with his printing film stripper. Geovanna Deleon MD Addendum 02/02/2018 [address] have discussed with Dr. Lr. Below is his message: I think it is a toss up to continue AC or stop for CHADS2-Vasc of 1. ??Risks and benefits pretty closely matched. I often use the [employer] website decision aid to help patients [...] AM EDT Office Visit Hematology/Oncology at [address] [phone] Dmitry Bhatti MD [facility] DR HEMATOLOGY [place] [address] Ellen Mcrae APRN [facility] [place] [address] 01/30/2025 11:30 AM EDT Infusion Hematology Oncology at [address] [phone] documented as of this encounter Visit Diagnoses Diagnosis Recurrent pulmonary embolism Other pulmonary embolism and infarction documented in this encounter Care Teams Sieve Repairer Relationship Specialty Start Date End Date Jovon Sifuentes MD [address] [place] [address] PCP - General 09/30/10 09/10/21 documented as of this encounter
--- OUTSIDE RECORDS SUMMARY | 2024-12-05 14:10 | XMS_ITS | Encounter Summary ---
Author Organization [facility] [place] [address] Care Team Providers Care Print Production Coordinator Name Role Phone Jovon Sifuentes MD Primary Care Provider [phone] Reason for Visit * Reason Comments Follow-up Encounter Details Date Type Department Care Team (Late st Contact Info) Description 11/11/2017 3:00 PM EST Office Visit [place] [address] Srirma Contreras MD [facility] [place] [address] Larynx cancer Social History Tobacco Use Types [...] Interiano MD - 11/11/2017 3:00 PM EST [facility] OTOLARYNGOLOGY HEAD AND NECK TUMOR CLINIC FOLLOW [...] CPAP G47.33, Z99.89 ??? Adult BMI 30+ [id number] ??? Head and neck cancer C76.0 ??? [...] the TelePack Unit and uploaded to the [employer] Brim Ironer Hand. Findings Nasal cavity Normal Nasopharynx normal Oropharynx [...] AM EDT Office Visit Hematology/Oncology at [address] [phone] Dmitry Bhatti MD [facility] DR HEMATOLOGY [place] [address] Ellen Mcrae APRN [facility] [place] [address] 01/30/2025 11:30 AM EDT Infusion Hematology Oncology at [address] [phone] documented as of this encounter Visit Diagnoses Diagnosis Larynx cancer Malignant neoplasm of larynx, unspecified site documented in this encounter Care Teams Print Production Coordinator Relationship Specialty Start Date End Date Jovon Sifuentes MD [address] [place] [address] PCP - General 09/30/10 09/10/21 documented as of this encounter
--- OUTSIDE RECORDS SUMMARY | 2024-12-05 14:10 | XMS_ITS | Encounter Summary ---
Author Organization [facility] [place] [address] Care Team Providers Care Back Stayer Name Role Phone Jovon Sifuentes MD Primary Care Provider Encounter Details Date Type Department Care Team (Latest Contact Info) Description 11/29/2017 Multidisciplinary Ca re Committee [place] [address] Zafar Madera MD [facility] [place] [address] Social History Tobacco Use Types Packs/Day Years [...] AM EDT Office Visit Hematology/Oncology at [address] [phone] Dmitry Bhatti MD [facility] [place]ATOLOGY [place] [address] Ellen Mcrae APRN [facility] [place] [address] 01/30/2025 11:30 AM EDT Infusion Hematology Oncology at [address] [phone] documented as of this encounter Visit Diagnoses Not on filedocumented in this encounter Care Teams Back Stayer Relationship Specialty Start Date End Date Jovon Sifuentes MD [address] [place] [address] PCP - General 09/30/10 09/10/21 documented as of this encounter
--- OUTSIDE RECORDS SUMMARY | 2024-12-05 14:10 | XMS_ITS | Encounter Summary ---
[place] [address] Care Team Providers Care Oral And Maxillofacial Surgeon Name Role Phone Jovon Sifuentes MD Primary Care Provider [phone] Reason for Referral * Diagnostic Test (Routine) - Closed Specialty Diagnoses / Procedures Referred By Contac t Referred To Contact Radiology Diagnoses Cancer of base of tongue Procedures CT Chest w Contrast Sriram Contreras MD [facility] [place] [address] [facility] [place] [address] Referral ID Status Reason Start Date Expiration Date V isits Requested Visits Authorized [id number] Closed Specialty Service Requested 07/21/2018 09/18/2018 1 1 * Diagnostic Test (Routine) - Specialty Diagnoses / Procedures Referred By Contac t Referred To Contact Radiology Diagnoses Cancer of base of tongue Procedures CT Neck Soft Tissue w Contrast (Generic) Sriram Contreras MD [facility] [place] [address] [facility] [place] [address] Referral ID Status Reason Start Date Expiration Date Visits Requested Visits Authorized [id number] Specialty Service Requested 07/21/2018 09/18/2018 1 1 Encounter Details Date Type Department Care Team (Late Contact Info) Description 07/04/2018 Orders [place] [address] Sriram Contreras MD [facility] [place] [address] Cancer of base of tongue Social History [...] AM EDT Office Visit Hematology/Oncology at [address] [phone] Dmitry Bhatti MD [facility] DR HEMATOLOGY [place] [address] Ellen Mcrae APRN [facility] [place] [address] 01/30/2025 11:30 AM EDT Infusion Hematology Oncology at [address] [phone] documented as of this encounter Results * [...] tongue documented in this encounter Care Teams Oral And Maxillofacial Surgeon Relationship Specialty Start Date End Date Jovon Sifuentes MD [address] [place] [id number] PCP - General 09/30/10 09/10/21 documented as of this encounter
--- OUTSIDE RECORDS SUMMARY | 2024-12-05 14:10 | XMS_ITS | Encounter Summary ---
Author Organization [facility] [place] [address] Care Team Providers Care Manager Research Name Role Phone Jovon Sifuentes MD Primary Care Provider [phone] Reason for Referral * Speech Therapy (Routine) - Specialty Diagnoses / Procedures Referred By Huma valladares Referred To Contact Speech Pathology Diagnoses Dysphagia, unspecified type Hilton Cheney PA [facility] [place] [address] Roc Patrick, [employer] [address] [place] [id number] Referral ID Status Reason Start Date Expiration Date V isits Requested Visits Authorized [id number] Evaluate and Treat 08/05/2017 02/01/2018 12 12 Reason for Visit * Reason Comments Other hospital check 07-29 Encounter Details Date Type Department Care Team (Late st Contact Info) Description 08/05/2017 3:30 PM EDT Office Visit [place] [address] Hilton Cheney PA [facility] [place] [address] Dysphagia, unspecified type; Cancer of base of [...] gargles 3-4 times per day. Referral to [facility] in [facility]. Nothing in the ears until next visit. Return to clinic in about 6 weeks. documented in this encounter Progress Notes * Hilton Cheney PA - 08/05/2017 3:30 PM EDT [facility] Follow up [...] - Primary * Selvin Kaye MD - Resident-Director Of Therapy Services * Hilton Cheney PA - Physician Board Of Directors Preoperative diagnosis: Right tongue base cancer Postoperative [...] go back on Eliquis. Needs referral to [facility] in [facility]. Head and neck symptom survey >Symptom [...] Date ??? ACHILLES TENDON SURGERY Right 1996 [facility] [place]?? KNEE ARTHROSCOPY christelle. [facility] ??? PRO BIOPSY OROPHARYNX N/A 05/24/2017 BIOPSY, OROPHARYNX (WRVU 1.44) performed by Zafar Madera MD at [facility] OR ??? PRO LARYNGOSCOPY, DIRCT, OP SCOPE, BIOPSY N/A 05/24/2017 LARYNGOSCOPY, MICROSCOPE, WITH BIOPSY (WRVU 3.55) performed by Zafar Madera MD at [facility] OR ??? PRO LARYNGOSCOPY, DIRECT, DX, OP MICROSCOP N/A 07/16/2017 LARYNGOSCOPY, WITH MICROSCOPE (WRVU 2.57) performed by Sriram Contreras MD at [facility] OR ??? PRO PART EXC TONGUE, UNILAT RAD NECK Right 07/13/2017 @GLOSSECTOMY, PARTIAL,WITH UNILATERAL RADICAL NECK DISSECTION (WRVU 30.14) performed by Sriram Contreras MD at [facility] ??? PRO PARTIAL REMOVAL OF PHARYNX N/A 07/13/2017 PHARYNGECTOMY, LIMITED (WRVU 19.13) performed by Sriram Contreras MD at [facility] ??? PRO UNLISTED PROCEDURE LARYNX N/A 07/13/2017 LARYNGOSCOPY, MICRO, LASER EXCISION (WRVU 12.14) performed by Sriram Contreras MD at [facility] ??? QUADRACEPS TENDON REPAIR Right 04/2016 [...] and will refer per his request for [facility] visits with Roc Patrick in [facility]. Discussed trying salt- water gargles to [...] gargles 3-4 times per day. Referral to P[facility]ER in [facility]. Nothing in the ears until next visit. Return to clinic in about 6 weeks. Hilton Cheney PA-C 08/05/2017 [place], [place] [address] Office documented in this encounter Plan of Treatment Upcoming Encounters Date Type Department Care Team (Late st Contact Info) Description 01/30/2025 11:00 AM EDT Office Visit Hematology/Oncology at [address] [phone] Dmitry Bhatti MD [facility] DR [place] [address] Ellen Mcrae APRN [facility] [place] [address] 01/30/2025 11:30 AM EDT Infusion Hematology Oncology at [address] [phone] Scheduled Referrals Name Type Priority Associated Diagnoses Orde r Schedule Referral to Speech Therapy Outpatient Referral Routine Dysphagia, unspecified type Ordered: 08/05/2017 documented as of this encounter Visit Diagnoses Diagnosis Dysphagia, unspecified type 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
--- OUTSIDE RECORDS SUMMARY | 2024-12-05 14:10 | XMS_ITS | Encounter Summary ---
Author Organization [facility] [place] [address] Care Team Providers Care Medicine Aide Name Role Phone Jovon Sifuentes MD Primary Care Provider [phone] Reason for Visit * Reason Comments Follow-up Larynx Cancer Encounter Details Date Type Department Care Team (Late st Contact Info) Description 12/16/2017 10:00 AM EST Office Visit [place] [address] Sriram Contreras MD [facility] [place] [address] Cancer of base of tongue Social History [...] Contreras MD - 12/16/2017 10:00 AM EST [facility] OTOLARYNGOLOGY HEAD AND [...] CPAP G47.33, Z99.89 ??? Adult BMI 30+ [id number] ??? Head and neck cancer C76.0 ??? 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
--- OUTSIDE RECORDS SUMMARY | 2024-12-05 14:10 | XMS_ITS | Encounter Summary ---
[place] [address] Care Team Providers Care Recreation Center Director Name Role Phone Jovon Sifuentes MD Primary Care Provider Reason for Referral * Diagnostic Test (Routine) - Closed Specialty Diagnoses / Procedures Referred By Huma valladares Referred To Contact Radiology Diagnoses Cancer of base of tongue Procedures MRI Soft Tissue Neck wwo Contrast MRI Soft Tissue Neck w Contrast Sriram Contreras MD [facility] [place] [address] [place] [address] Referral ID Status Reason Start Date Expiration Date V isits Requested Visits Authorized [id number] Closed Specialty Service Requested 11/05/2017 01/03/2018 1 1 Reason for Visit * Reason Comments Follow-up 6 WK FU. Cancer of b ase of tongue right. [place] Patient states that he has 2 lumps on his abdomen from the Lovenox shots. Encounter Details Date Type Department Care Team (Late Contact Info) Description 09/16/2017 1:00 PM EST Office [place] [phone] Sriram Contreras MD [facility] [place] [address] Cancer of base of tongue [...] Contreras MD - 09/16/2017 1:00 PM EST [facility] OT[facility]OLOGY HEAD AND NECK TUMOR [...] CPAP G47.33, Z99.89 ??? Adult BMI 30+ [id number] ??? Head and neck cancer C76.0 ??? [...] the [employer] Unit and uploaded to the [employer] Cutter. Findings Nasal cavity Normal Nasopharynx normal Oropharynx [...] AM EDT Office Visit Hematology/Oncology at [address] [phone] Dmitry Bhatti MD [facility] DR HEMATOLOGY [place] [address] Ellen Mcrae APRN [facility] [place] [address] 01/30/2025 11:30 AM EDT Infusion Hematology Oncology at [address] [phone] documented as of this encounter [...] tongue documented in this encounter Care Teams Recreation Center Director Relationship Specialty Start Date End Date Jovon Sifuentes MD [address] [place] [address] PCP - General 09/30/10 09/10/21 documented as of this encounter
--- OUTSIDE RECORDS SUMMARY | 2024-12-05 14:12 | XMS_ITS | Encounter Summary ---
Author Organization [facility] Address [facility] [place] [address] Care Team Providers Care Tool Maker Apprentice Name Role Phone Jovon Sifuentes MD Primary Care Provider [phone] Reason for Visit * Auth/Cert Specialty Diagnoses [...] Expiration Date Visits Re quested Visits Authorized [id number] 1 1 Encounter Details Date Type Department Care Team (Latest Contact Info) Description 07/13/2017 6:04 AM EDT - 07/29/2017 1:35 PM EDT Hospital Encounter [address] [place] [phone] Sriram Contreras MD [facility] [place] [address] Persistent atrial fibrillation; QT prolongation; Other pulmonary embolism without acute cor pulmonale Discharge Disposition: [facility] Facility Social History Tobacco Use Types Packs/Day [...] staging exam TECHNIQUE: Following IV injection of 77-pzearg-1-deoxyglucose (FDG) a standard uptake of approximately 60 [...] Incision Care: Your incision was closed with sutures/cyrstal, which were removed prior to discharge. You [...] -You can reach the ENT clinic at [phone] for appointment questions. -The ENT triage nurse is available at [phone] -For urgent issues during evenings and weekends the ENT resident director of consumer marketing can be reached through [facility] compressor operator portable at [phone] Follow Up: You will need to follow [...] Geovanna Deleon MD Hematology and Oncology at [place] [phone] General Instructions None __ Primary Care Doctor: Jovon Sifuentes MD [phone] Signed: Celso Mejía MD 07/29/2017 documented in [...] -You can reach the ENT clinic at [phone] for appointment questions. -The ENT triage nurse is available at [phone] -For urgent issues during evenings and weekends the ENT resident director of consumer marketing can be reached through [facility] compressor operator portable at [phone] Follow Up: You will need to follow [...] Geovanna Deleon MD Hematology and Oncology at [place] [phone] documented in this encounter Medications at Time [...] att. providers found Jose Laws discharged to [facility] Rehab by private car with Spouse. All belongings sent with patient. DONNA removed, incision healing well, no significant drainage, no dehiscence, no significant erythema, skin free from pressure ulcers. Discharge instructions given to . Report called to Vidhi at [facility] @ 1340. * Alexus Soler RN - 07/29/2017 11:38 AM EDT Patient accepts bed at [facility]. Spoke with Patient and in regards to transportation. will provide transportation to [facility]. Adrienne Soler RN Care Management * Lexy Scott - 07/29/2017 10:57 AM EDT Office of Care Management/Jelly Maker Patient Name: Jose Laws : 1950 Patient has been offered a [facility] Facility bed at [facility]. The patient will be transported by private transportation. No MD to MD report necessary Please call Nursing Report to , ask for Vidhi. Info to accompany patient: Narcotic Prescriptions Copies of Medication Administration Records and IV sheets for past 10 days. Plan: Jelly Maker will be available to the patient and Retail Merchandising Manager-RN and/or Social Workerfor further assistance. Patient will be discharged to: [facility] [address] [place] [address] Lexy Scott, Jelly Maker * Luana Henry RN - 07/29/2017 7:00 AM EDT Patient arrived via bed to rm 514, oob sitting in chair. Aox4, calling . Denies pain. Plan for discharge today pending bed. 1 assist to bathroom. Voids with out difficulty. [place] to floor and call srinivasan system. Would like to take a shower and have his CPAP cleaned. Will report to oncoming RN/CONCEPCION. * Kayley Chris RCP - 07/29/2017 4:40 AM EDT Patient was compliant with home CPAP usage tonight. * Anay Diallo RN - 07/28/2017 3:40 PM EDT Retail Merchandising Manager Follow Up Note Patient plan of care discussed in multidisciplinary rounds. Met with patient and to assess continuing care and discharge needs. Continues to require hospitalization for Head and neck cancer. Discharge plan to snf when medically ready. Retail Merchandising Manager to follow with team and family to assist with discharge needs when patient ready for discharge. Anay Diallo RN Case Management for [facility] pgr [phone] * Celso Mejía MD [...] Mejía MD, PGY1 07/28/17 7:05 AM Pager: [phone] * Anay Diallo RN - 07/27/2017 2:44 PM EDT Based on discussions with the multi-disciplinary healthcare team, the patient would benefit from skilled level of care at discharge. ?? I have met with the patient/appliance service representative to discuss discharge planning needs. I have provided the [facility], Office of Care Management letter from the Family Consumer Scientist pertaining to rehab referrals. I have also provided a letter describing our affiliations within the [facility] and educated them about their right to choose where referrals are placed. ?? I reviewed the different levels of rehab including SNF, swing, acute and LTAC with the patient/appliance service representative. ?? The patient/appliance service representative has been provided a list of facilities within their preferred geographic area. ?? I have requested that the patient/appliance service representative provide at least three choices for referral. ?? The patient/appliance service representative have requested referrals to: 1. [facility] ?? PHONE: [phone] FAX: [phone].. 2. [facility] [address] [place] [address] ?? 3. [facility] (S[facility]) [address] [place] [id number] ? Expected date of discharge: TBD Note routed to Jelly Maker who will communicate referrals to facilities [...] Mejía MD, PGY1 07/27/17 7:01 AM Pager: [phone] * Collette Schultz - 07/26/2017 8:21 PM EDT Zach Encounter Note Patient Name: Jose Laws : [id number] MR#: [id number] Admit Date: 07/13/2017 6:04 AM Hospital Day 13 days Narrative: Attempted return visit - pt sleeping. Time in Direct Care: 0 min. Collette Schultz 07/26/2017 * Collette Schultz - 07/26/2017 3:00 PM EDT Supervisor Plate Pasting Encounter Note Patient Name: Jose Laws : [id number] MR#: [id number] Admit Date: 07/13/2017 6:04 AM Hospital Day 13 days Narrative: Rock Splitter visit per Consult Order Assessment: Pt spoke [...] Diallo RN - 07/26/2017 2:30 PM EDT Retail Merchandising Manager Follow Up Note Patient plan of care discussed in multidisciplinary rounds. Met with patient to assess continuing care and discharge needs. Continues to require hospitalization for Head and neck cancer. Discharge plan uncertain at this time. Retail Merchandising Manager to follow with team and family to assist with discharge needs when patient ready for discharge. Anay Diallo RN Case Management for [facility] pgr [phone] * Briana Goel RN - 07/26/2017 2:29 PM EDT [facility] Interventional Radiology ? Interventional Radiology [...] patient's provider, ENT Service Dr. Jackie Mejía #[id number] , regarding above. Paged, callback # provided [...] Overview: March 2017: noted in ED in [facility]. Previously noted to be paroxysmal. No awareness. CHADS2-VASc=1 (age). Started on apixaban for PE Acute respiratory failure Overview: Worsening oxygenation. KORI on CPAP Adult BMI 30+ Estimated body mass index is 38.74 kg/(m^2) as calculated from the following: Height as of this encounter: 191.8 cm (6' 3.51). Weight as of this encounter: 142.5 kg (314 lb 2.5 oz). Admit Wt: 133.36 kg Liberty body weight: 90.4 kg Type of access: [...] vitamins and minerals. Assessment: Estimated Nutrition Needs: 4311-9289 calories (20-25 kcal/kg IBW) 135-160 grams protein (1.5-2.0 g/kg IBW) Patient is out of the ICU and out on the floor. Tube feedings need adjustment as pt is no longer onpropofol. Appears tube feedings are still medically indicated given pt is s/p swallow eval and CERTIFIED BENCH JEWELER TECHNICIAN recommends continuation of dobhoff TF for now. [...] Mejía MD, PGY1 07/26/17 9:01 AM Pager: [phone] * Claista Peralta RT - 07/26/2017 12:27 AM EDT [...] 7.44 7.41 7.42 PO2ART 67* 60* 78* IUO1KNS 39 37 39 BEART 1.2 -2.0 0.3 [...] 7.44 7.41 7.42 PO2ART 67* 60* 78* [id number] 39 37 39 BEART 1.2 -2.0 0.3 [...] Samm Payne MD, FAAP Pediatric Otolaryngology [facility] ([facility]) [facility] * Beena Saini MAINTENANCE PLANNING CLERK - 07/24/2017 4:28 AM EDT AMV Protocol: [...] Overview: March 2017[facility] Previously noted to be paroxysmal. [...] 07/23/2017 3:50 PM EDT Office of Care Management(OCM)/Retail Merchandising Manager(CM) Service: ENT Pt remains intubated at [...] get appropriate choices after recs are made. Retail Merchandising Manager Roc Valdez RN, BSN Pager #[phone] * Sony Oliva MD - 07/23/2017 11:31 [...] 07/23/2017 No results found for: PHART, PO2ART, FPL4DXL ASSESSMENT, MANAGEMENT, and DECISION MAKING: potential for [...] LEAST ONE OF THESE DX to USE 68584 ARDS Stupor Hypoxemic Resp Failure (Fi02>50%) Delirium [...] LEAST ONE OF THESE DX to USE 13645 ARDS Stupor Hypoxemic Resp Failure (Fi02>50%) Delirium [...] Medications: Albuterol prn Breath Sounds: Rhonchi Secretions: Large/copious/hdze/thick Assessment / Events / Plan of the [...] to reach the patient's provider, Red 1 2965, regarding above. Monitor weight. Jose Laws is [...] LEAST ONE OF THESE DX to USE 55595 ARDS Stupor Hypoxemic Resp Failure (Fi02>50%) Delirium [...] PGY2 07/20/17 7:21 AM * Kaiden Gorman, [facility] - 07/20/2017 4:35 AM EDT AMV Protocol: [...] LEAST ONE OF THESE DX to USE 19423 ARDS Stupor Hypoxemic Resp Failure (Fi02>50%) Delirium [...] neck incision c/d/i with crysatl with no hematoma/seroma. 2 JYOTHI neck drains [...] extuabated Surgical/Head&Neck: Neck incision with aquaphor; 2 JYOHTI drains; Final path is pending Neurologic: Pain [...] plan. Lakeshia Mckeon MD * Jeannie Jewell, [facility] - 07/17/2017 7:24 PM EDT 07/17/171922 Oxygen [...] Jr, MD, PGY2 07/17/17 8:21 PM Pager: [phone] (For daytime 6AM - 6PM) Please contact on-call night ENT international marketing coordinator for issues between 6PM - 6AM * [...] the need arise fora surgical airway. - [facility] - HOB 30 degrees [...] kg (294 lb). Admit Weight: 133.36 kg Liberty Body Weight: 90.3 kg I/O last 1 [...] pt successfully extubated. ?? Lillian Pardo MA CCC-CERTIFIED BENCH JEWELER TECHNICIAN Inpatient Rehabilitation Medicine pager:# [phone] * Salazar Bhagat MD - 07/16/2017 11:57 [...] -- 3.7* 2.1 CBC Recent Labs 07/16/1739907/15/17 2404 07/14/17 0036 WBC 10.2* 14.6* 14.6* RBC [...] need arise for a surgical airway. - [facility] vent protocol - HOB 30 degrees [...] 3 Days Post-Op Patient ID/Reason for Admission Joes Laws is a 66 y.o. male presented [...] Martino MD, PGY1 07/16/17 9:12 AM Pager: [phone] (For daytime 6AM - 6PM) Please contact on-call night ENT international marketing coordinator for issues between 6PM - 6AM * Supa Sharif, [facility] - 07/15/2017 8:15 PM EDT AMV Protocol: [...] need arise for a surgical airway. - [facility] protocol - Dexamethasone x3 doses [...] Martino MD, PGY1 07/15/17 7:06 AM Pager: [phone] (For daytime 6AM - 6PM) Please contact on-call night ENT international marketing coordinator for issues between 6PM - 6AM * Supa Sharif, [facility] - 07/14/2017 9:40 PM EDT AMV Protocol: [...] ?? Pulm: nasally intubated, difficult airway - [facility] vent protocol - Dexamethasone x3 doses [...] MD 07/14/2017 6:47 PM * Adam Montana, [facility] - 07/14/2017 2:03 PM EDT AMV Protocol: [...] Martino MD, PGY1 07/14/17 9:38 AM Pager: [phone] (For daytime 6AM - 6PM) Please contact on-call night ENT international marketing coordinator for issues between 6PM - 6AM * [...] of this encounter: 133.4 kg (294 lb). Liberty Body Weight: 90.3 kg I/O last 1 [...] service. Nutrition to follow. * Cecilia Doll, RIVER EXPEDITION GUIDE - 07/14/2017 5:36 AM EDT Mechanical Ventilation [...] 1.44) performed by Zafar Madera MD at [facility] MAIN OR ??? PRO LARYNGOSCOPY, DIRCT, OP SCOPE, BIOPSY N/A 05/24/2017 LARYNGOSCOPY, MICROSCOPE, WITH BIOPSY (WRVU 3.55) performed by Zafar Madera MD at [facility] MAIN OR ??? QUADRACEPS TENDON REPAIR Right 04/2016 [facility] ??? TONSILLECTOMY Allergies: Allergies Allergen Reactions [...] education: 17 Occupational History ??? 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 He is to Briana for 40 yrs. 4 children - All live in different states - [place]. Enjoys raising Beef Cattle and doing Civil War and Living History and shoot Black powder/Antique firearms. He enjoys builiding Firearms/Blacksmithing - [place], [place], etc. Review of Systems: Not obtained due [...] - currently stable Pulm: nasally intubated - [facility] GI: DHT - Diet: [...] this case performed under IRB Protocol Study [id number] (Improving throat cancer surgical outcomes through intra-operative [...] to the planned procedure. Hand Hygiene: The chorus master did perform hand hygiene prior to arterial [...] hypoxic respiratory failure Location of Procedure: ICU [facility]. Risks and Benefits: The risks and benefits [...] RECOMMENDATIONS: ?? Continue dysphagia soft diet and Dietrich-thick liquids. ?? Upright to feed. ?? Small bites/sips. ?? Medications crushed in applesauce. Sriram Thompson MS [facility]-CERTIFIED BENCH JEWELER TECHNICIAN Speech-Language Pathologist Rehabilitation Medicine Pager - [phone] Problem: Acute Rehab Services Goal & Intervention [...] Anticipated Discharge Disposition: inpatient rehabilitation facility Pager: [phone] OTONIEL JOSHUA OT 07/28/2017 Occupational Therapy Rehabilitation [...] * Plan of Care - Sriram Thompson, CERTIFIED BENCH JEWELER TECHNICIAN - 07/28/2017 2:18 PM EDT Problem: Patient [...] documentation. RECOMMENDATIONS: ?? Dysphagia soft diet and Dietrich-thick liquids. ?? Upright to feed. ?? Small bites / sips. ?? Crush medications in applesauce when possible. Sriram Thompson MS [facility]-CERTIFIED BENCH JEWELER TECHNICIAN Speech-Language Pathologist Rehabilitation Medicine Pager - [phone] Problem: Acute Rehab Services Goal & Intervention [...] PO intake. Awaiting plan for D/C to [facility] facility. INDIVIDUALIZED FALL PREVENTION INTERVENTIONS: Patient-specific fall [...] Mobility Recommendations: Pt to utilize FWW and CG/aMlena for transfers and ambulation. 2nd person toassist with equipment. Please encourage 3-4 walks into hallway/day. Anticipated Physical Therapy Frequency: (2-5x/wk) Anticipated Equipment Needs at Discharge: (TBD) Anticipated Discharge Disposition: inpatient rehabilitation facility Pager: [phone] CRISTIAN NELSON, PT 07/27/2017 Physical Therapy Rehabilitation [...] sit/sit to supine -- Bed Mobility Goal, [place] Level independent -- Bed Mobility Goal, Outcome Achieved -- goal ongoing Goal: Gait Training Goal Stand Alone Therapy Goal Outcome: Ongoing (Interventions Implemented as Appropriate) 07/26/17 1329 07/27/17 1230 Gait Training Goal Gait Training Goal, Date Established 07/26/17 -- Gait Training Goal, Time to Achieve 30 days -- Gait Training Goal, [place] Level supervision required -- Gait Training Goal, [...] days -- Transfer Training Goal, Activity Type lkt-lc-thzve/ucnmf-wk-nni;dbx-qu-rfbct/wpajj-gs-kva -- Transfer Train Goal, [place] Level supervision required -- Transfer Training Goal, Assist Device walker, rolling -- Transfer Training Goal, Outcome -- goal ongoing * Plan of Care - Sriram Thompson, CERTIFIED BENCH JEWELER TECHNICIAN - 07/27/2017 10:59 AM EDT Problem: Patient [...] Crush medications in applesauce. Sriram Thompson MS [facility]-CERTIFIED BENCH JEWELER TECHNICIAN Speech-Language Pathologist Rehabilitation Medicine Pager - [phone] Problem: Acute Rehab Services Goal & Intervention [...] PLAN MOVING FORWARD: -PEG tube. -IV abx -CERTIFIED BENCH JEWELER TECHNICIAN consult. -hep gtt. INDIVIDUALIZED FALL PREVENTION INTERVENTIONS: [...] Pt appeared anxious and frustrated this morning. Rock Splitter consulted and talked with patient today. During a transfer to the [facility] it was determinedthat tube feeding was leaking [...] Anticipated Discharge Disposition: inpatient rehabilitation facility Pager: [phone] OTONIEL JOSHUA OT 07/26/2017 Occupational Therapy Rehabilitation [...] Anticipated Discharge Disposition: inpatient rehabilitation facility Pager: [phone] CRISTIAN NELSON, DANY 07/26/2017 Physical Therapy Rehabilitation [...] to sit/sit to supine Bed Mobility Goal, [place] Level independent Goal: Gait Training Goal Stand Alone Therapy Goal Outcome: Ongoing (Interventions Implemented as Appropriate) 07/26/17 1329 Gait Training Goal Gait Training Goal, Date Established 07/26/17 Gait Training Goal, Time to Achieve 30 days Gait Training Goal, [place] Level supervision required Gait Training Goal, Assist [...] 30 days Transfer Training Goal, Activity Type mbr-el-dudlg/vmzyf-sb-rqq;trt-pe-ggyuk/lxlnv-qy-rov Transfer Train Goal, [place] Level supervision required Transfer Training Goal, Assist [...] 1.44) performed by Zafar Madera MD at [facility] MAIN OR ??? PRO LARYNGOSCOPY, DIRCT, OP SCOPE, BIOPSY N/A 05/24/2017 LARYNGOSCOPY, MICROSCOPE, WITH BIOPSY (WRVU 3.55) performed by Zafar Madera MD at [facility] MAIN OR ??? PRO LARYNGOSCOPY, DIRECT, DX, OP MICROSCOP N/A 07/16/2017 LARYNGOSCOPY, WITH MICROSCOPE (WRVU 2.57) performed by Sriram Contreras MD at [facility] OR ??? PRO PART EXC TONGUE, UNILAT RAD NECK Right 07/13/2017 @GLOSSECTOMY, PARTIAL,WITH UNILATERAL RADICAL NECK DISSECTION (WRVU 30.14) performed by Sriram Contreras MD at [facility] ??? PRO PARTIAL REMOVAL OF PHARYNX N/A 07/13/2017 PHARYNGECTOMY, LIMITED (WRVU 19.13) performed by Sriram Contreras MD at [facility] ??? PRO UNLISTED PROCEDURE LARYNX N/A 07/13/2017 LARYNGOSCOPY, MICRO, LASER EXCISION (WRVU 12.14) performed by Sriram Contreras MD at [facility] ??? QUADRACEPS TENDON REPAIR Right 04/2016 [facility] ??? TONSILLECTOMY FAMILY HISTORY No family history on file. No family history of VTE SOCIAL HISTORY Social History Social History ??? Marital status: Spouse name: Briana ??? Number of children: 4 ??? 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 He is to Briana for 40 yrs. 4 children - All live in different states - One Kathleen Enjoys raising Beef Cattle and doing Civil War and Living History and shoot Black powder/Antique firearms. He enjoys builiding Firearms/Blacksmithing - Charcoal, [place], etc. PHYSICAL EXAMINATION Most Recent Vitals: 07/26/17 [...] and thrombosis clinic Felice Harvey MD Pager [phone] Heme-Onc Fellow ?? HEMATOLOGY STAFF ADDENDUM I [...] Deanna Menjivar MD Hematology Staff physician, Pager: [phone] 07/26/17 * Plan of Care - Sriram Thompson, CERTIFIED BENCH JEWELER TECHNICIAN - 07/26/2017 9:33 AM EDT Problem: Patient [...] degrees at all times. Sriram Thompson MS [facility]-CERTIFIED BENCH JEWELER TECHNICIAN Speech-Language Pathologist Rehabilitation Medicine Pager - [phone] Problem: Acute Rehab Services Goal & Intervention [...] Laws was transferred from the ICU to [facility] at approximately 1430 on 07/25/17. At [...] per order. PLAN MOVING FORWARD: Transfer to [facility] INDIVIDUALIZED FALL PREVENTION INTERVENTIONS: Patient-specific [...] am. PLAN MOVING FORWARD: Extubate, transfer to [facility] when able INDIVIDUALIZED FALL PREVENTION [...] Overview Goal: Plan of Care Review 07/23/17 9446 Coping/Psychosocial Plan Of Care Reviewed With patient [...] Outcome: Ongoing (Interventions Implemented as Appropriate) 07/15/17 0424 Skin Integrity Impairment, Risk/Actual Skin Integrity Impairment, [...] MOVING FORWARD: Extubate this am, transfer to [facility] when able INDIVIDUALIZED FALL PREVENTION [...] RN or CONCEPCION Surveillance [continuous indirect monitoring]: [place] ICU monitor Patient-specific fall prevention interventions for [...] Operative Note Patient Name: Jose Laws : [id number] MR#: [id number] Case Date: 07/16/2017 Surgeon: Surgeon(s) and Role: [...] Outcome: Ongoing (Interventions Implemented as Appropriate) 07/15/17 8254 Skin Integrity Impairment, Risk/Actual Skin Integrity Impairment, [...] monitoring required during toileting and ADLs]: RN, JOINT TERMINAL ATTACK CONTROLLER and RT Surveillance [continuous indirect monitoring]: Monitor [...] Operative Note Patient Name: Jose Laws : [id number] MR#: [id number] Case Date: 07/13/2017 Surgeon: Surgeon(s) and Role: * Sriram Contreras MD - Primary * Selvin Kaye MD - Resident-Camera Assembler * Hilton Cheney PA - Physician Dulser Preoperative diagnosis: Right tongue base cancer Postoperative [...] Vicryl suture. Once this was completed, two 15-Urdu Robin drains were placed in the neck, [...] Laws would be surrogate decision maker per [place] surrogate decision making law. Any patient receiving care at [facility] must abide by [place] law. The hierarchy for surrogate decision making [...] (i) The agent with financial power of erisa attorney or a conservator appointed in accordance [...] Insurance: MEDICARE A & B Secondary Insurance: [facility]UE [facility] Prescription Coverage: yes. Preferred Pharmacy: [facility] in [place], [place]. Other: none. Primary Care Provider: Jovon Sifuentes MD [phone] Patient/Caregiver Goals of Treatment: plan being determined at this time. Likely home health at [place]. Potential Needs for Transition of Care: Rehab/SNF: tbd. Home Health: tbd. DME: none previously required. Dialysis: N/A Community Resources: none. Transportation: spouse will provide. Other: none. Anticipated Barriers to Discharge/Special Considerations: no barriers identified at this time. Plan: a member of the Care Management team will continue to monitor progress, follow for continuityof care and assist with transition of care planning. Retail Merchandising Manager Roc Valdez RN, BSN Pager #[phone] documented in this encounter Plan of Treatment Upcoming Encounters Date Type Department Care Team (Late st Contact Info) Description 01/30/2025 11:00 AM EDT Office Visit Hematology/Oncology at [address] [phone] Dmitry Bhatti MD [facility] [address] HEMATOLOGY [place] [address] Ellen Mcrae APRN [facility] [place] [address] 01/30/2025 11:30 AM EDT Infusion Hematology Oncology at [address] [phone] documented as of this encounter Procedures Procedure Name Priority Date/Time Associated Diagnosis Comments SHOP FIRER/FIREMAN SCAN 07/30/2017 12:00 AM EDT HEMOGRAM Routine [...] in this encounter Results * SCAN DOC: SHOP FIRER/FIREMAN (07/30/2017 12:00 AM EDT) Anatomical Region Laterality Modality Other Narrative 07/30/2017 12:00 AM EDT Ordered by an unspecified provider. Scanning Provider MEDIA MGR SCAN EXT O RDR/RSLT * (ABNORMAL) Differential, Automated (07/29/2017 3:41 AM EDT) Neutrophil % 59.9 % [facility] Neutrophil Absolute 4.48 1.70 - 6.10 x10(3)/mc L [facility] Lymph % 26.0 % [facility] Lymphocytes Abs 2.0 0.9 - 3.2 x10(3)/mc L [facility] Monocyte % 10.0 % [facility] Monocyte Abs 0.8 0.3 - 0.9 x10(3)/mc L [facility] Eos % 2.1 % [facility] Eosinophils Abs 0.2 0.0 - 0.4 x10(3)/[facility] Basophil % 0.7 % [facility] Baso Absolute 0.0 0.0 - 0.1 x10(3)/[facility] Immature Gran % 1.30 % [facility] Comment: Immature granulocytes(IG's)percentage and absolute count will include metamyelocytes, myelocytes, and promyelocytes. Blood smears from CBCs yielding IG's will be scanned manually for concordance. If this scan disagrees with the automated IG or if promyelocytes are noted, a manual differential will be performed. Immature Gran Absolute 0.10(H) 0.00 - 0.04 x10(3)/[facility] Blood specimen (specimen) 07/29/2017 3:41 AM EDT 07/29/2017 3:58 AM EDT Narrative Resulting Agency Comment Spec In Lab Sriram Contreras MD HEMATOLOGY ORDERAB LES [facility] [place] [address] * (ABNORMAL) Hemogram (07/29/2017 3:41 AM EDT) White Blood Cell 7.5 4.0 - 9.5 x10(3)/[facility] Red Blood Cell 4.14(L) 4.58 - 5.54 x10(6)/[facility] Hemoglobin 12.7(L) 13.7 - 16.5 gm/dL [facility] Hematocrit 38.1(L) 40.5 - 48.5 % [facility] Mean Cell Volume 92.0 82.9 - 93.1 fL [facility] Mean Cell Hemoglobin 30.7 27.5 - 32.1 pg [facility] Mean Cell Hemoglobin Concentration 33.3 32.0 - 35.7 gm/dL [facility] Platelet 281 145 - 357 x10(3)/[facility] RDW Standard Deviation 46.4(H) 36.0 - 45.0 fL [facility] RDW coefficient of variation 13.9(H) 11.4 - 13.8 % [facility] Mean Platelet Volume 9.9 7.6 - 12.9 [facility] NRBC% auto 0.0 % [facility] NRBC Absolute 0.000 0.000 - 0.000 x10(3)/mc L [facility] Blood specimen (specimen) 07/29/2017 3:41 AM EDT 07/29/2017 3:58 AM EDT Narrative Resulting Agency Comment Spec In Lab Sriram Contreras MD HEMATOLOGY ORDERAB LES [facility] [place] [address] * Basic Metabolic Panel (non-fasting) (07/29/2017 3:41 AM EDT) Glucose 95 65 - 199 mg/dL [facility] Comment:Diabetes: >=200 mg/d L plus symptoms Blood Urea Nitrogen 16 10 - 20 mg/dL [facility] - 107 mmol/L [facility] Carbon Dioxide 24 22 - 31 mmol/L [facility] Anion Gap 13 5 - 15 mmol/L [facility] Calcium 8.9 8.5 - 10.5 mg/dL [facility] Est Glomerular Filtration Rate [...] the following links into your internet browser. [email or web address] Blood specimen (specimen) 07/29/2017 3:41 AM EDT 07/29/2017 3:58 AM EDT Narrative Resulting Agency Comment Spec In Lab Sriram Contreras MD CHEMISTRY ORDERABL ES Performing Organization Address [facility]/ZIP Co de Phone Number [facility] [place] [address] * POCT Glucose (07/28/2017 11:53 AM EDT) Glucose, POC 107 65 - 199 mg/dL [facility] Comment: Supplemental ranges: <140 mg/dL before meals <180 mg/dL all other times of the day Blood specimen (specimen) 07/28/2017 11:53 AM EDT 07/28/2017 11:53 AM EDT Sriram Contreras MD POINT OF CARE TEST ORDERABLES [facility] [place] [address] * POCT Glucose (07/28/2017 7:52 AM EDT) Glucose, POC 97 65 - 199 mg/dL [facility] Comment: Supplemental ranges: <140 mg/dL before meals <180 mg/dL all other times of the day Blood specimen (specimen) 07/28/2017 7:52 AM EDT 07/28/2017 7:52 AM EDT Sriram Contreras MD POINT OF CARE TEST ORDERABLES Performing Organization Address [facility] Co de Phone Number [facility] [place] [address] * POCT Glucose (07/28/2017 4:27 AM EDT) Glucose, POC 98 65 - 199 mg/dL [facility] Comment: Supplemental ranges: <140 mg/dL before meals <180 mg/dL all other times of the day Blood specimen (specimen) 07/28/2017 4:27 AM EDT 07/28/2017 4:27 AM EDT Sriram Contreras MD POINT OF CARE TEST ORDERABLES Performing Organization Address [facility] Co de Phone Number [facility] [place] [address] * Phosphorus (07/28/2017 3:47 AM EDT) Phosphorus 3.7 2.5 - 4.5 mg/dL [facility] Blood specimen (specimen) 07/28/2017 3:47 AM EDT 07/28/2017 6:16 AM EDT Narrative Resulting Agency Comment Spec In Lab Sriram Contreras MD CHEMISTRY ORDERABL ES Performing Organization Address [facility] Co de Phone Number [facility] [place] [address] * Magnesium (07/28/2017 3:47 AM EDT) Magnesium 0.86 0.69 - 1.07 mmol/L [facility] Blood specimen (specimen) 07/28/2017 3:47 AM EDT 07/28/2017 6:16 AM EDT Narrative Resulting Agency Comment Spec In Lab Sriram Contreras MD CHEMISTRY ORDERABL ES Performing Organization Address [facility]/[place] [address] * (ABNORMAL) Differential, Automated (07/28/2017 3:47 AM EDT) Neutrophil % 62.2 % [facility] Neutrophil Absolute 4.94 1.70 - 6.10 x10(3)/mc L [facility] Lymph % 22.1 % [facility] Lymphocytes Abs 1.8 0.9 - 3.2 x10(3)/mc L [facility] Monocyte % 10.6 % [facility] Monocyte Abs 0.8 0.3 - 0.9 x10(3)/mc L [facility] Eos % 2.1 % [facility] Eosinophils Abs 0.2 0.0 - 0.4 x10(3)/mc L [facility] Basophil % 1.1 % [facility] Baso Absolute 0.1 0.0 - 0.1 x10(3)/mc L [facility] [...] Absolute 0.15(H) 0.00 - 0.04 x10(3)/mc L [facility] Blood specimen (specimen) 07/28/2017 3:47 AM EDT 07/28/2017 3:58 AM EDT Narrative Resulting Agency Comment Spec In Lab Sriram Contreras MD HEMATOLOGY ORDERAB LES Performing Organization Address City/[facility]/ZIP Co de Phone Number [facility] [place] [address] * (ABNORMAL) Hemogram (07/28/2017 3:47 AM EDT) [facility] White Blood Cell 8.0 4.0 - 9.5 x10(3)/[facility] Red Blood Cell 4.43(L) 4.58 - 5.54 x10(6)/[facility] Hemoglobin 13.4(L) 13.7 - 16.5 gm/dL [facility] Hematocrit 40.3(L) 40.5 - 48.5 % [facility] Mean Cell Volume 91.0 82.9 - 93.1 fL [facility] Mean Cell Hemoglobin 30.2 27.5 - 32.1 pg [facility] Mean Cell Hemoglobin Concentration 33.3 32.0 - 35.7 gm/dL [facility] Platelet 271 145 - 357 x10(3)/[facility] RDW Standard Deviation 45.5(H) 36.0 - 45.0 [facility] RDW coefficient of variation 13.8 11.4 - 13.8 % [facility] Mean Platelet Volume 9.9 7.6 - 12.9 [facility] NRBC% auto 0.0 % [facility] NRBC Absolute 0.000 0.000 - 0.000 x10(3)/[facility] Blood specimen (specimen) 07/28/2017 3:47 AM EDT 07/28/2017 3:58 AM EDT Narrative Resulting Agency Comment Spec In Lab Sriram Contreras MD HEMATOLOGY ORDERAB LES [facility] [place] [address] * Basic Metabolic Panel (non-fasting) (07/28/2017 3:47 AM EDT) [facility] Glucose 110 65 - 199 mg/dL [facility] Comment:Diabetes: >=200 mg/d L plus symptoms Blood Urea Nitrogen 19 10 - 20 mg/dL [facility] - 107 mmol/L [facility] Carbon Dioxide 24 22 - 31 mmol/L [facility] Anion Gap 15 5 - 15 mmol/L [facility] Calcium 8.9 8.5 - 10.5 mg/dL [facility] Est Glomerular Filtration Rate [...] the following links into your internet browser. [email or web address] Blood specimen (specimen) 07/28/2017 3:47 AM EDT 07/28/2017 3:58 AM EDT Narrative Resulting Agency Comment Spec In Lab Sriram Contreras MD CHEMISTRY ORDERABL ES [facility] [place] [address] * POCT Glucose (07/27/2017 11:52 PM EDT) Pathologist [facility] Glucose, POC 94 65 - 199 mg/dL [facility] Comment: Supplemental ranges: <140 mg/dL before meals <180 mg/dL all other times of the day Blood specimen (specimen) 07/27/2017 11:52 PM EDT 07/27/2017 11:52 PM EDT Sriram Contreras MD POINT OF CARE TEST ORDERABLES [facility] [place] [address] * Heparin, low molecular weight assay (07/27/2017 8:19 PM EDT) [facility] Heparin [id number] 0.67 IU/mL [facility] Comment: [...] MD HEMATOLOGY ORDERAB LES Performing Organization Address [facility] Phone Number [facility] [place] [address] * POCT Glucose (07/27/2017 7:35 PM EDT) Glucose, POC 118 65 - 199 mg/dL [facility] Comment: Supplemental ranges: <140 mg/dL before meals <180 mg/dL all other times of the day Blood specimen (specimen) 07/27/2017 7:35 PM EDT 07/27/2017 7:35 PM EDT Sriram Contreras MD POINT OF CARE TEST ORDERABLES Performing Organization Address [facility] Phone Number [facility] [place] [address] * POCT Glucose (07/27/2017 3:28 PM EDT) Glucose, POC 104 65 - 199 mg/dL [facility] Comment: Supplemental ranges: <140 mg/dL before meals <180 mg/dL all other times of the day Blood specimen (specimen) 07/27/2017 3:28 PM EDT 07/27/2017 3:28 PM EDT Sriram Contreras MD POINT OF CARE TEST ORDERABLES Performing Organization Address City/[facility]/ZIP Co de Phone Number [facility] [place] [address] * POCT Glucose (07/27/2017 11:06 AM EDT) Glucose, POC 147 65 - 199 mg/dL [facility] Comment: Supplemental ranges: <140 mg/dL before meals <180 mg/dL all other times of the day Blood specimen (specimen) 07/27/2017 11:06 AM EDT 07/27/2017 11:06 AM EDT Sriram Contreras MD POINT OF CARE TEST ORDERABLES Performing Organization Address [facility] Co de Phone Number [facility] [place] [address] * POCT Glucose (07/27/2017 7:25 AM EDT) Glucose, POC 105 65 - 199 mg/dL [facility] Comment: Supplemental ranges: <140 mg/dL before meals <180 mg/dL all other times of the day Blood specimen (specimen) 07/27/2017 7:25 AM EDT 07/27/2017 7:25 AM EDT Sriram Contreras MD POINT OF CARE TEST ORDERABLES Performing Organization Address City/[facility]/ZIP Co de Phone Number [facility] [place] [address] * Duplex Study for DVT, Bilat legs (07/27/2017 6:59 AM EDT) VB Text Report Department: Vascular Surgery Lab Patient: [id number] (JOSE LAWS) CPT: 12285 ICD10: I26.99 Referring Physician: SRIRAM CONTRERAS ?? [...] EDT Sriram Contreras MD VASCULAR ORDERABLE S [facility] * POCT Glucose (07/27/2017 3:52 AM EDT) [facility] Glucose, POC 106 65 - 199 mg/dL [facility] Comment: Supplemental ranges: <140 mg/dL before meals <180 mg/dL all other times of the day Blood specimen (specimen) 07/27/2017 3:52 AM EDT 07/27/2017 3:52 AM EDT Sriram Contreras MD POINT OF CARE TEST ORDERABLES [facility] [place] [address] * (ABNORMAL) APTT (07/27/2017 2:45 AM EDT) Partial Thromboplastin Time 92(H) 25 - 35 sec [facility] MD HEMATOLOGY ORDERAB LES Performing Organization Address City/State/[facility] Co de Phone Number [facility] [place] [address] * (ABNORMAL) Differential, Automated (07/27/2017 2:45 AM EDT) Neutrophil % 67.8 % [facility] Neutrophil Absolute 8.40(H) 1.70 - 6.10 x10(3)/mc L [facility] Lymph % 17.4 % [facility] Lymphocytes Abs 2.2 0.9 - 3.2 x10(3)/ L [facility] Monocyte % 9.5 % [facility] Monocyte Abs 1.2(H) 0.3 - 0.9 x10(3)/mc L [facility] Eos % 1.4 % [facility] Eosinophils Abs 0.2 0.0 - 0.4 x10(3)/mc L [facility] Basophil % 0.9 % [facility] Baso Absolute 0.1 0.0 - 0.1 x10(3)/mc L [facility] [...] Absolute 0.37(H) 0.00 - 0.04 x10(3)/mc L [facility] Blood specimen (specimen) 07/27/2017 2:45 AM EDT 07/27/2017 2:55 AM EDT Narrative Resulting Agency Comment Spec In Lab Sriram Contreras MD HEMATOLOGY ORDERAB LES Performing Organization Address City/State/[facility] Co de Phone Number [facility] [address] * (ABNORMAL) Hemogram (07/27/2017 2:45 AM EDT) White Blood Cell 12.4(H) 4.0 - 9.5 x10(3)/mc L [facility] Red Blood Cell 4.66 4.58 - 5.54 x10(6)/mc L [facility] Hemoglobin 14.3 13.7 - 16.5 gm/dL [facility] Hematocrit 42.0 40.5 - 48.5 % [facility] Mean Cell Volume 90.1 82.9 - 93.1 fL [facility] Mean Cell Hemoglobin 30.7 27.5 - 32.1 pg [facility] Mean Cell Hemoglobin Concentration 34.0 32.0 - 35.7 gm/dL [facility] Platelet 288 145 - 357 x10(3)/mc L [facility] RDW Standard Deviation 45.5(H) 36.0 - 45.0 fL [facility] RDW coefficient of variation 14.0(H) 11.4 - 13.8 % [facility] Mean Platelet Volume 9.7 7.6 - 12.9 fL [facility] NRBC% auto 0.0 % [facility] NRBC Absolute 0.000 0.000 - 0.000 x10(3)/mc L [facility] Blood specimen (specimen) 07/27/2017 2:45 AM EDT 07/27/2017 2:55 AM EDT Narrative Resulting Agency Comment Spec In Lab Sriram Contreras MD HEMATOLOGY ORDERAB LES [facility] [place] [address] * (ABNORMAL) Basic Metabolic Panel (non-fasting) (07/27/2017 2:45 AM EDT) Glucose 169 65 - 199 mg/dL [facility] Comment:Diabetes: >=200 mg/d L plus symptoms Blood Urea Nitrogen 22(H) 10 - 20 mg/dL [facility] - 107 mmol/L [facility] Carbon Dioxide 23 22 - 31 mmol/L [facility] Anion Gap 16(H) 5 - 15 mmol/L [facility] Calcium 9.4 8.5 - 10.5 mg/dL [facility] Est Glomerular Filtration Rate [...] the following links into your internet browser. [email or web address] Blood specimen (specimen) 07/27/2017 2:45 AM EDT 07/27/2017 2:55 AM EDT Narrative Resulting Agency Comment Spec In Lab Sriram Contreras MD CHEMISTRY ORDERABL ES Performing Organization Address [facility] de Phone Number [facility] [place] [address] * Phosphorus (07/27/2017 2:45 AM EDT) Phosphorus 4.3 2.5 - 4.5 mg/dL [facility] Blood specimen (specimen) 07/27/2017 2:45 AM EDT 07/27/2017 2:55 AM EDT Narrative Resulting Agency Comment Spec In Lab Sriram Contreras MD CHEMISTRY ORDERABL ES Performing Organization Address [facility] Phone Number [facility] [place] [address] * Magnesium (07/27/2017 2:45 AM EDT) Magnesium 0.79 0.69 - 1.07 mmol/L [facility] Blood specimen (specimen) 07/27/2017 2:45 AM EDT 07/27/2017 2:55 AM EDT Narrative Resulting Agency Comment Spec In Lab Sriram Contreras MD CHEMISTRY ORDERABL ES Performing Organization Address [facility] de Phone Number [facility] [place] [address] * POCT Glucose (07/27/2017 12:02 AM EDT) Glucose, POC 112 65 - 199 mg/dL [facility] Comment: Supplemental ranges: <140 mg/dL before meals <180 mg/dL all other times of the day Blood specimen (specimen) 07/27/2017 12:02 AM EDT 07/27/2017 12:02 AM EDT Sriram Contreras MD POINT OF CARE TEST ORDERABLES Performing Organization Address [facility] Co de Phone Number [facility] [place] [address] * (ABNORMAL) APTT (07/26/2017 9:29 PM EDT) Partial Thromboplastin Time 90(H) 25 - 35 sec [facility] MD HEMATOLOGY ORDERAB LES Performing Organization Address [facility] de Phone Number [facility] [place] [address] * POCT Glucose (07/26/2017 8:14 PM EDT) Glucose, POC 116 65 - 199 mg/dL [facility] Comment: Supplemental ranges: <140 mg/dL before meals <180 mg/dL all other times of the day Blood specimen (specimen) 07/26/2017 8:14 PM EDT 07/26/2017 8:14 PM EDT Sriram Contreras MD POINT OF CARE TEST ORDERABLES Performing Organization Address [facility] Co de Phone Number [facility] [place] [address] * POCT Glucose (07/26/2017 3:20 PM EDT) Glucose, POC 125 65 - 199 mg/dL [facility] Comment: Supplemental ranges: <140 mg/dL before meals <180 mg/dL all other times of the day Blood specimen (specimen) 07/26/2017 3:20 PM EDT 07/26/2017 3:20 PM EDT Sriram Contreras MD POINT OF CARE TEST ORDERABLES Performing Organization Address [facility] de Phone Number [facility] [place] [address] * (ABNORMAL) APTT (07/26/2017 1:51 PM EDT) Partial Thromboplastin Time 88(H) 25 - 35 sec [facility] MD HEMATOLOGY ORDERAB LES Performing Organization Address [facility] de Phone Number [facility] [place] [address] * POCT Glucose (07/26/2017 11:12 AM EDT) Glucose, POC 120 65 - 199 mg/dL [facility] Comment: Supplemental ranges: <140 mg/dL before meals <180 mg/dL all other times of the day Blood specimen (specimen) 07/26/2017 11:12 AM EDT 07/26/2017 11:12 AM EDT Sriram Contreras MD POINT OF CARE TEST ORDERABLES Performing Organization Address [facility] de Phone Number [facility] [place] [address] * POCT Glucose (07/26/2017 7:35 AM EDT) Glucose, POC 115 65 - 199 mg/dL [facility] Comment: Supplemental ranges: <140 mg/dL before meals <180 mg/dL all other times of the day Blood specimen (specimen) 07/26/2017 7:35 AM EDT 07/26/2017 7:35 AM EDT Sriram Contreras MD POINT OF CARE TEST ORDERABLES Performing Organization Address [facility] Co de Phone Number [facility] [place] [address] * (ABNORMAL) APTT (07/26/2017 3:30 AM EDT) Partial Thromboplastin Time 60(H) 25 - 35 sec [facility] ORDERAB LES Performing Organization Address [facility] Co de Phone Number [facility] [place] [address] * (ABNORMAL) Differential, Automated (07/26/2017 3:30 AM EDT) Neutrophil % 68.7 % [facility] Neutrophil Absolute 8.50(H) 1.70 - 6.10 x10(3)/mc L [facility] Lymph % 14.3 % [facility] Lymphocytes Abs 1.8 0.9 - 3.2 x10(3)/mc L [facility] Monocyte % 9.6 % [facility] Monocyte Abs 1.2(H) 0.3 - 0.9 x10(3)/mc L [facility] Eos % 1.3 % [facility] Eosinophils Abs 0.2 0.0 - 0.4 x10(3)/[facility] Basophil % 1.4 % [facility] Baso Absolute 0.2(H) 0.0 - 0.1 x10(3)/[facility] Immature Gran % 4.70 % [facility] Comment: Immature granulocytes(IG's)percentage and absolute count will include metamyelocytes, myelocytes, and promyelocytes. Blood smears from CBCs yielding IG's will be scanned manually for concordance. If this scan disagrees with the automated IG or if promyelocytes are noted, a manual differential will be performed. Immature Gran Absolute 0.58(H) 0.00 - 0.04 x10(3)/[facility] Blood specimen (specimen) 07/26/2017 3:30 AM EDT 07/26/2017 4:11 AM EDT Narrative Resulting Agency Comment Spec In Lab Sriram Contreras MD HEMATOLOGY ORDERAB LES Performing Organization Address City/State/[facility] Co de Phone Number [facility] [place] [address] * (ABNORMAL) Hemogram (07/26/2017 3:30 AM EDT) White Blood Cell 12.4(H) 4.0 - 9.5 x10(3)/[facility] Red Blood Cell 4.87 4.58 - 5.54 x10(6)/[facility] Hemoglobin 15.2 13.7 - 16.5 gm/dL [facility] Hematocrit 44.1 40.5 - 48.5 % [facility] Mean Cell Volume 90.6 82.9 - 93.1 fL [facility] Mean Cell Hemoglobin 31.2 27.5 - 32.1 pg [facility] Mean Cell Hemoglobin Concentration 34.5 32.0 - 35.7 gm/dL [facility] Platelet 253 145 - 357 x10(3)/[facility] RDW Standard Deviation 44.8 36.0 - 45.0 [facility] RDW coefficient of variation 13.6 11.4 - 13.8 % [facility] Mean Platelet Volume 10.4 7.6 - 12.9 [facility] NRBC% auto 0.2 % [facility] NRBC Absolute 0.020(H) 0.000 - 0.000 x10(3)/mc L [facility] Blood specimen (specimen) 07/26/2017 3:30 AM EDT 07/26/2017 4:11 AM EDT Narrative Resulting Agency Comment Spec In Lab Sriram Contreras MD HEMATOLOGY ORDERAB LES [facility] [place] [address] * Basic Metabolic Panel (non-fasting) (07/26/2017 3:30 AM EDT) Glucose 123 65 - 199 mg/dL [facility] Comment:Diabetes: >=200 mg/d L plus symptoms Blood Urea Nitrogen 18 10 - 20 mg/dL [facility] - 107 mmol/L [facility] Carbon Dioxide 25 22 - 31 mmol/L [facility] Anion Gap 14 5 - 15 mmol/L [facility] Calcium 9.2 8.5 - 10.5 mg/dL [facility] Est Glomerular Filtration Rate [...] the following links into your internet browser. [email or web address] Blood specimen (specimen) 07/26/2017 3:30 AM EDT 07/26/2017 4:11 AM EDT Narrative Resulting Agency Comment Spec In Lab Sriram Contreras MD CHEMISTRY ORDERABL ES Performing Organization Address [facility] Co de Phone Number [facility] [place] [address] * Prealbumin (07/26/2017 3:30 AM EDT) Prealbumin 26 20 - 40 mg/dL [facility] Comment: Prealbumin levels are generally lower in the pediatric population; adult concentrations are usually attained near puberty. Blood specimen (specimen) 07/26/2017 3:30 AM EDT 07/26/2017 4:11 AM EDT Narrative Resulting Agency Comment Spec In Lab Sriram Contreras MD CHEMISTRY ORDERABL ES Performing Organization Address City/[facility]/ZIP Co de Phone Number [facility] [place] [address] * POCT Glucose (07/26/2017 3:27 AM EDT) Glucose, POC 116 65 - 199 mg/dL [facility] Comment: Supplemental ranges: <140 mg/dL before meals <180 mg/dL all other times of the day Blood specimen (specimen) 07/26/2017 3:27 AM EDT 07/26/2017 3:27 AM EDT Sriram Contreras MD POINT OF CARE TEST ORDERABLES Performing Organization Address [facility] de Phone Number [facility] [place] [address] * POCT Glucose (07/25/2017 7:50 PM EDT) Glucose, POC 109 65 - 199 mg/dL [facility] Comment: Supplemental ranges: <140 mg/dL before meals <180 mg/dL all other times of the day Blood specimen (specimen) 07/25/2017 7:50 PM EDT 07/25/2017 7:50 PM EDT Sriram Contreras MD POINT OF CARE TEST ORDERABLES Performing Organization Address [facility] Phone Number [facility] [place] [address] * (ABNORMAL) APTT (07/25/2017 5:51 PM EDT) Partial Thromboplastin Time 112(H) 25 - 35 sec [facility] MD HEMATOLOGY ORDERAB LES Performing Organization Address [facility] de Phone Number [facility] [place] [address] * POCT Glucose (07/25/2017 4:01 PM EDT) Glucose, POC 109 65 - 199 mg/dL [facility] Comment: Supplemental ranges: <140 mg/dL before meals <180 mg/dL all other times of the day Blood specimen (specimen) 07/25/2017 4:01 PM EDT 07/25/2017 4:01 PM EDT Sriram Contreras MD POINT OF CARE TEST ORDERABLES Performing Organization Address [facility] Co de Phone Number [facility] [place] [address] * POCT Glucose (07/25/2017 12:10 PM EDT) Glucose, POC 117 65 - 199 mg/dL [facility] Comment: Supplemental ranges: <140 mg/dL before meals <180 mg/dL all other times of the day Blood specimen (specimen) 07/25/2017 12:10 PM EDT 07/25/2017 12:10 PM EDT Sriram Contreras MD POINT OF CARE TEST ORDERABLES Performing Organization Address [facility] Co de Phone Number [facility] [place] [address] * Potassium (07/25/2017 11:00 AM EDT) Potassium [...] ORDERABL ES Performing Organization Address [facility] Co de Phone Number [facility] [place] [address] * (ABNORMAL) APTT (07/25/2017 11:00 AM EDT) Partial Thromboplastin Time 102(H) 25 - 35 sec [facility] ORDERAB LES Performing Organization Address [facility] Co de Phone Number [facility] [place] [address] * POCT Glucose (07/25/2017 8:27 AM EDT) [facility] Glucose, POC 124 65 - 199 mg/dL [facility] Comment: Supplemental ranges: <140 mg/dL before meals <180 mg/dL all other times of the day Blood specimen (specimen) 07/25/2017 8:27 AM EDT 07/25/2017 8:27 AM EDT Sriram Contreras MD POINT OF CARE TEST ORDERABLES Performing Organization Address [facility] Co de Phone Number [facility] [place] [address] * (ABNORMAL) BLOOD GAS 2 ARTERIAL (07/25/2017 6:19 AM EDT) [facility] Signature pH, Arterial 7.51(H) 7.35 - 7.45 [facility] PCO2, Arterial 29(L) 35 - 45 mmHg [facility] PO2, Arterial 59(L) 85 - 104 mmHg [facility] Bicarbonate, Arterial 22.2 20.0 - 26.0 mmol/L [facility] Base Excess, Arterial -0.9 -3.0 - 3.0 mmol/L [facility] Hgb Blood Gas 14.6 13.7 - 16.5 gm/dL [facility] Oxyhemoglobin, Arterial 91.1(L) 94.0 - 97.0 % [facility] Carboxyhemoglob in, Arterial 0.3 % [facility] Comment: Nonsmokers: 0.5-1.5% COHB Smokers: Variable, but usually less than 10% Toxic: 20-30% COHB Lethal: Greater than 60% COHB Methemoglobin, Arterial 0.6 <=1.5 % [facility] Na Whole Blood 141 [...] CARE TEST ORDERABLES [facility] [place] [address] * POCT Glucose (07/25/2017 4:41 AM EDT) Glucose, POC 101 65 - 199 mg/dL [facility] Comment: Supplemental ranges: <140 mg/dL before meals <180 mg/dL all other times of the day Blood specimen (specimen) 07/25/2017 4:41 AM EDT 07/25/2017 4:41 AM EDT Sriram Contreras MD POINT OF CARE TEST ORDERABLES Performing Organization Address City/[facility]/ZIP Co de Phone Number [facility] [place] [address] * Magnesium (07/25/2017 4:37 AM EDT) Pathologist [facility] Magnesium 0.83 0.69 - 1.07 mmol/L [facility] Blood specimen (specimen) Venous Draw / Unknown 07/25/2017 4:37 AM EDT 07/25/2017 4:50 AM EDT Narrative Resulting Agency Comment Spec In Lab Sriram Contreras MD CHEMISTRY ORDERABL ES Performing Organization Address [facility] Co de Phone Number [facility] [place] [address] * (ABNORMAL) Differential, Automated (07/25/2017 4:37 AM EDT) [facility] Neutrophil % 68.4 % [facility] Neutrophil Absolute 8.77(H) 1.70 - 6.10 x10(3)/mc L [facility] Lymph % 15.0 % [facility] Lymphocytes Abs 1.9 0.9 - 3.2 x10(3)/mc L [facility] Monocyte % 8.9 % [facility] Monocyte Abs 1.1(H) 0.3 - 0.9 x10(3)/mc L [facility] Eos % 1.9 % [facility] Eosinophils Abs 0.2 0.0 - 0.4 x10(3)/mc L [facility] Basophil % 1.0 % [facility] Baso Absolute 0.1 0.0 - 0.1 x10(3)/mc L [facility] Immature Gran % 4.80 % [facility] Comment: Immature granulocytes(IG's)percentage and absolute count will include metamyelocytes, myelocytes, and promyelocytes. Blood smears from CBCs yielding IG's will be scanned manually for concordance. If this scan disagrees with the automated IG or if promyelocytes are noted, a manual differential will be performed. Immature Gran Absolute 0.62(H) 0.00 - 0.04 x10(3)/mc L [facility] Blood specimen (specimen) 07/25/2017 4:37 AM EDT 07/25/2017 4:48 AM EDT Narrative Resulting Agency Comment Spec In Lab Sriram Contreras MD HEMATOLOGY ORDERAB LES Performing Organization Address City/State/[facility] Co de Phone Number [facility] [place] [address] * (ABNORMAL) Hemogram (07/25/2017 4:37 AM EDT) White Blood Cell 12.8(H) 4.0 - 9.5 x10(3)/mc L [facility] Red Blood Cell 4.53(L) 4.58 - 5.54 x10(6)/mc L [facility] Hemoglobin 14.0 13.7 - 16.5 gm/dL [facility] Hematocrit 40.3(L) 40.5 - 48.5 % [facility] Mean Cell Volume 89.0 82.9 - 93.1 fL [facility] Mean Cell Hemoglobin 30.9 27.5 - 32.1 pg [facility] Mean Cell Hemoglobin Concentration 34.7 32.0 - 35.7 gm/dL [facility] Platelet 241 145 - 357 x10(3)/mc L [facility] RDW Standard Deviation 43.1 36.0 - 45.0 [facility] RDW coefficient of variation 13.2 11.4 - 13.8 % [facility] Mean Platelet Volume 9.9 7.6 - 12.9 fL [facility] NRBC% auto 0.0 % [facility] NRBC Absolute 0.000 0.000 - 0.000 x10(3)/mc L [facility] Blood specimen (specimen) 07/25/2017 4:37 AM EDT 07/25/2017 4:48 AM EDT Narrative Resulting Agency Comment Spec In Lab Sriram Contreras MD HEMATOLOGY ORDERAB LES [facility] [place] [address] * Basic Metabolic Panel (non-fasting) (07/25/2017 4:37 AM EDT) Glucose 120 65 - 199 mg/dL [facility] Comment:Diabetes: >=200 mg/d L plus symptoms Blood Urea Nitrogen 14 10 - 20 mg/dL [facility] - 107 mmol/L [facility] Carbon Dioxide 24 22 - 31 mmol/L [facility] Anion Gap 13 5 - 15 mmol/L [facility] Calcium 8.8 8.5 - 10.5 mg/dL [facility] Est Glomerular Filtration Rate [...] the following links into your internet browser. [email or web address] Blood specimen (specimen) 07/25/2017 4:37 AM EDT 07/25/2017 4:48 AM EDT Narrative Resulting Agency Comment Spec In Lab Sriram Contreras MD CHEMISTRY ORDERABL ES Performing Organization Address [facility] de Phone Number [facility] [place] [address] * (ABNORMAL) APTT (07/25/2017 4:37 AM EDT) Partial Thromboplastin Time 122(H) 25 - 35 sec [facility] MD HEMATOLOGY ORDERAB LES Performing Organization Address [facility] Co de Phone Number [facility] [place] [address] * POCT Glucose (07/25/2017 12:10 AM EDT) Glucose, POC 108 65 - 199 mg/dL [facility] Comment: Supplemental ranges: <140 mg/dL before meals <180 mg/dL all other times of the day Blood specimen (specimen) 07/25/2017 12:10 AM EDT 07/25/2017 12:10 AM EDT Sriram Contreras MD POINT OF CARE TEST ORDERABLES Performing Organization Address City/[facility]/ZIP Co de Phone Number [facility] [place] [address] * POCT Glucose (07/24/2017 8:05 PM EDT) Glucose, POC 112 65 - 199 mg/dL [facility] Comment: Supplemental ranges: <140 mg/dL before meals <180 mg/dL all other times of the day Blood specimen (specimen) 07/24/2017 8:05 PM EDT 07/24/2017 8:05 PM EDT Sriram Contreras MD POINT OF CARE TEST ORDERABLES Performing Organization Address [facility] Co de Phone Number [facility] [place] [address] * POCT Glucose (07/24/2017 8:04 PM EDT) Glucose, POC 106 65 - 199 mg/dL [facility] Comment: Supplemental ranges: <140 mg/dL before meals <180 mg/dL all other times of the day Blood specimen (specimen) 07/24/2017 8:04 PM EDT 07/24/2017 8:04 PM EDT Sriram Contreras MD POINT OF CARE TEST ORDERABLES Performing Organization Address City/[facility]/ZIP Co de Phone Number [facility] [place] [address] * POCT Glucose (07/24/2017 3:42 PM EDT) Glucose, POC 108 65 - 199 mg/dL [facility] Comment: Supplemental ranges: <140 mg/dL before meals <180 mg/dL all other times of the day Blood specimen (specimen) 07/24/2017 3:42 PM EDT 07/24/2017 3:42 PM EDT Sriram Contreras MD POINT OF CARE TEST ORDERABLES Performing Organization Address City/[facility]/ZIP Co de Phone Number [facility] [place] [address] * POCT Glucose (07/24/2017 11:42 AM EDT) Glucose, POC 102 65 - 199 mg/dL [facility] Comment: Supplemental ranges: <140 mg/dL before meals <180 mg/dL all other times of the day Blood specimen (specimen) 07/24/2017 11:42 AM EDT 07/24/2017 11:42 AM EDT Sriram Contreras MD POINT OF CARE TEST ORDERABLES Performing Organization Address [facility] Co de Phone Number [facility] [place] [address] * POCT Glucose (07/24/2017 8:00 AM EDT) Glucose, POC 107 65 - 199 mg/dL [facility] Comment: Supplemental ranges: <140 mg/dL before meals <180 mg/dL all other times of the day Blood specimen (specimen) 07/24/2017 8:00 AM EDT 07/24/2017 8:00 AM EDT Sriram Contreras MD POINT OF CARE TEST ORDERABLES Performing Organization Address City/[facility]/ZIP Co de Phone Number [facility] [place] [address] * (ABNORMAL) BLOOD GAS 2 ARTERIAL (07/24/2017 7:28 AM EDT) pH, Arterial 7.44 7.35 - 7.45 [facility] PCO2, Arterial 39 35 - 45 mmHg [facility] PO2, Arterial 67(L) 85 - 104 mmHg [facility] Bicarbonate, Arterial 25.5 20.0 - 26.0 mmol/L [facility] Base Excess, Arterial 1.2 -3.0 - 3.0 mmol/L [facility] Hgb Blood Gas 13.8 13.7 - 16.5 gm/dL [facility] Oxyhemoglobin, Arterial 92.8(L) 94.0 - 97.0 % [facility] Carboxyhemoglob in, Arterial 0.3 % [facility] Comment: Nonsmokers: 0.5-1.5% COHB Smokers: Variable, but usually less than 10% Toxic: 20-30% COHB Lethal: Greater than 60% COHB Methemoglobin, Arterial 0.6 <=1.5 % [facility] Na Whole Blood 139 [...] [facility] FIO2 Art 30 % [facility] PF Ratio Art 223 [facility] Blood specimen (specimen) 07/24/2017 7:28 AM EDT 07/24/2017 7:28 AM EDT Sriram Contreras MD POINT OF CARE TEST ORDERABLES [facility] [place] [address] * Potassium (07/24/2017 7:28 AM EDT) Potassium [...] ORDERABL ES Performing Organization Address [facility] Co de Phone Number [facility] [place] [address] * POCT Glucose (07/24/2017 3:42 AM EDT) [facility] Glucose, POC 91 65 - 199 mg/dL [facility] Comment: Supplemental ranges: <140 mg/dL before meals <180 mg/dL all other times of the day Blood specimen (specimen) 07/24/2017 3:42 AM EDT 07/24/2017 3:42 AM EDT Sriram Contreras MD POINT OF CARE TEST ORDERABLES Performing Organization Address [facility] Phone Number [facility] [place] [address] * Scan, Peripheral Blood (07/24/2017 1:00 AM EDT) [facility] Plat estimate Normal [facility] RBC Morphology Normal [facility] Blood specimen (specimen) Venous Draw / Unknown 07/24/2017 1:00 AM EDT 07/24/2017 1:15 AM EDT Narrative Resulting Agency Comment Spec In Lab Sriram Contreras MD HEMATOLOGY ORDERAB LES Performing Organization Address [facility] Co de Phone Number [facility] [place] [address] * (ABNORMAL) Differential, Automated (07/24/2017 1:00 AM EDT) Neutrophil % 69.9 % [facility] Neutrophil Absolute 9.34(H) 1.70 - 6.10 x10(3)/[facility] Lymph % 13.7 % [facility] Lymphocytes Abs 1.8 0.9 - 3.2 x10(3)/[facility] Monocyte % 8.1 % [facility] Monocyte Abs 1.1(H) 0.3 - 0.9 x10(3)/[facility] Eos % 2.2 % [facility] Eosinophils Abs 0.3 0.0 - 0.4 x10(3)/[facility] Basophil % 0.7 % [facility] Baso Absolute 0.1 0.0 - 0.1 x10(3)/[facility] Immature Gran % 5.40 % [facility] Comment: Immature granulocytes(IG's)percentage and absolute count will include metamyelocytes, myelocytes, and promyelocytes. Blood smears from CBCs yielding IG's will be scanned manually for concordance. If this scan disagrees with the automated IG or if promyelocytes are noted, a manual differential will be performed. Immature Gran Absolute 0.72(H) 0.00 - 0.04 x10(3)/[facility] Blood specimen (specimen) 07/24/2017 1:00 AM EDT 07/24/2017 1:15 AM EDT Narrative Resulting Agency Comment Spec In Lab Sriram Contreras MD HEMATOLOGY ORDERAB LES [facility] [place] [address] * (ABNORMAL) Hemogram (07/24/2017 1:00 AM EDT) White Blood Cell 13.4(H) 4.0 - 9.5 x10(3)/[facility] Red Blood Cell 4.13(L) 4.58 - 5.54 x10(6)/mc L [facility] Hemoglobin 12.7(L) 13.7 - 16.5 gm/dL [facility] Hematocrit 38.0(L) 40.5 - 48.5 % [facility] Mean Cell Volume 92.0 82.9 - 93.1 fL [facility] Mean Cell Hemoglobin 30.8 27.5 - 32.1 pg [facility] Mean Cell Hemoglobin Concentration 33.4 32.0 - 35.7 gm/dL [facility] Platelet 201 145 - 357 x10(3)/mc L [facility] RDW Standard Deviation 45.5(H) 36.0 - 45.0 fL [facility] RDW coefficient of variation 13.4 11.4 - 13.8 % [facility] Mean Platelet Volume 10.1 7.6 - 12.9 fL [facility] NRBC% auto 0.0 % [facility] NRBC Absolute 0.000 0.000 - 0.000 x10(3)/mc L [facility] Blood specimen (specimen) 07/24/2017 1:00 AM EDT 07/24/2017 1:15 AM EDT Narrative Resulting Agency Comment Spec In Lab Sriram Contreras MD HEMATOLOGY ORDERAB LES Performing Organization Address City/State/[facility] Co de Phone Number [facility] [place] [address] * (ABNORMAL) APTT (07/24/2017 1:00 AM EDT) [facility] Signature Partial Thromboplastin Time 102(H) 25 - 35 sec [facility] HEMATOLOGY ORDERAB LES [facility] [place] [address] * (ABNORMAL) Basic Metabolic Panel (non-fasting) (07/24/2017 1:00 AM EDT) Glucose 103 65 - 199 mg/dL [facility] Comment:Diabetes: >=200 mg/d L plus symptoms Blood Urea Nitrogen 17 10 - 20 mg/dL [facility] - 107 mmol/L [facility] Carbon Dioxide 27 22 - 31 mmol/L [facility] Anion Gap 12 5 - 15 mmol/L [facility] Calcium 8.7 8.5 - 10.5 mg/dL [facility] Est Glomerular Filtration Rate [...] the following links into your internet browser. [email or web address] Blood specimen (specimen) 07/24/2017 1:00 AM EDT 07/24/2017 1:14 AM EDT Narrative Resulting Agency Comment Spec In Lab Sriram Contreras MD CHEMISTRY ORDERABL ES Performing Organization Address [facility] Co de Phone Number [facility] [place] [address] * POCT Glucose (07/23/2017 11:53 PM EDT) Glucose, POC 95 65 - 199 mg/dL [facility] Comment: Supplemental ranges: <140 mg/dL before meals <180 mg/dL all other times of the day Blood specimen (specimen) 07/23/2017 11:53 PM EDT 07/23/2017 11:53 PM EDT Sriram Contreras MD POINT OF CARE TEST ORDERABLES Performing Organization Address [facility] Co de Phone Number [facility] [place] [address] * POCT Glucose (07/23/2017 7:52 PM EDT) Glucose, POC 91 65 - 199 mg/dL [facility] Comment: Supplemental ranges: <140 mg/dL before meals <180 mg/dL all other times of the day Blood specimen (specimen) 07/23/2017 7:52 PM EDT 07/23/2017 7:52 PM EDT Sriram Contreras MD POINT OF CARE TEST ORDERABLES Performing Organization Address [facility] Co de Phone Number [facility] [place] [address] * POCT Glucose (07/23/2017 2:56 PM EDT) Glucose, POC 115 65 - 199 mg/dL [facility] Comment: Supplemental ranges: <140 mg/dL before meals <180 mg/dL all other times of the day Blood specimen (specimen) 07/23/2017 2:56 PM EDT 07/23/2017 2:56 PM EDT Sriram Contreras MD POINT OF CARE TEST ORDERABLES Performing Organization Address [facility] Co de Phone Number [facility] [place] [address] * (ABNORMAL) APTT (07/23/2017 2:55 PM EDT) Partial Thromboplastin Time 101(H) 25 - 35 sec [facility] ORDERAB LES Performing Organization Address [facility] Co de Phone Number [facility] [place] [address] * POCT Glucose (07/23/2017 12:07 PM EDT) Glucose, POC 97 65 - 199 mg/dL [facility] Comment: Supplemental ranges: <140 mg/dL before meals <180 mg/dL all other times of the day Blood specimen (specimen) 07/23/2017 12:07 PM EDT 07/23/2017 12:07 PM EDT Sriram Contreras MD POINT OF CARE TEST ORDERABLES Performing Organization Address [facility] Co de Phone Number [facility] [place] [address] * (ABNORMAL) APTT (07/23/2017 8:27 AM EDT) [facility] Signature Partial Thromboplastin Time 95(H) 25 - 35 sec [facility] ORDERAB LES Performing Organization Address [facility]/ZIP Co de Phone Number [facility] [place] [address] * POCT Glucose (07/23/2017 8:02 AM EDT) [facility] Glucose, POC 103 65 - 199 mg/dL [facility] Comment: Supplemental ranges: <140 mg/dL before meals <180 mg/dL all other times of the day Blood specimen (specimen) 07/23/2017 8:02 AM EDT 07/23/2017 8:02 AM EDT Sriram Contreras MD POINT OF CARE TEST ORDERABLES Performing Organization Address [facility]/ZIP Co de Phone Number [facility] [place] [address] * (ABNORMAL) BLOOD GAS 2 ARTERIAL (07/23/2017 6:32 AM EDT) [facility] pH, Arterial 7.41 7.35 - 7.45 [facility] PCO2, Arterial 37 35 - 45 mmHg [facility] PO2, Arterial 60(L) 85 - 104 mmHg [facility] Bicarbonate, Arterial 22.6 20.0 - 26.0 mmol/L [facility] Base Excess, Arterial -2.0 -3.0 - 3.0 mmol/L [facility] Hgb Blood Gas 12.7(L) 13.7 - 16.5 gm/dL [facility] Oxyhemoglobin, Arterial 90.3(L) 94.0 - 97.0 % [facility] [facility] Carboxyhemoglob in, Arterial 0.3 % [facility] Comment: Nonsmokers: 0.5-1.5% COHB Smokers: Variable, but usually less than 10% Toxic: 20-30% COHB Lethal: Greater than 60% COHB Methemoglobin, Arterial 0.5 <=1.5 % [facility] Na Whole Blood 138 [...] [facility] FIO2 Art 30 % [facility] PF Ratio Art 200 [facility] Blood specimen (specimen) 07/23/2017 6:32 AM EDT 07/23/2017 6:32 AM EDT Sriram Contreras MD POINT OF CARE TEST ORDERABLES [facility] [place] [address] * Potassium (07/23/2017 4:15 AM EDT) Potassium [...] MD CHEMISTRY ORDERABL ES Performing Organization Address [facility] Phone Number [facility] [place] [address] * POCT Glucose (07/23/2017 3:50 AM EDT) [facility] Glucose, POC 126 65 - 199 mg/dL [facility] Comment: Supplemental ranges: <140 mg/dL before meals <180 mg/dL all other times of the day Blood specimen (specimen) 07/23/2017 3:50 AM EDT 07/23/2017 3:50 AM EDT Sriram Contreras MD POINT OF CARE TEST ORDERABLES Performing Organization Address [facility] Number [facility] [place] [address] * (ABNORMAL) APTT (07/23/2017 1:53 AM EDT) [facility] Partial Thromboplastin Time 119(H) 25 - 35 sec [facility] HEMATOLOGY ORDERAB LES [facility] [place] [address] * (ABNORMAL) Differential, Automated (07/23/2017 12:45 AM EDT) Neutrophil % 63.2 % [facility] Neutrophil Absolute 6.47(H) 1.70 - 6.10 x10(3)/ L [facility] Lymph % 20.9 % [facility] Lymphocytes Abs 2.1 0.9 - 3.2 x10(3)/ L [facility] Monocyte % 7.6 % [facility] Monocyte Abs 0.8 0.3 - 0.9 x10(3)/[facility] LABORAT[facility] Eos % 2.8 % [facility] Eosinophils Abs 0.3 0.0 - 0.4 x10(3)/[facility] Basophil % 0.7 % [facility] Baso Absolute 0.1 0.0 - 0.1 x10(3)/ L [facility] [...] Absolute 0.49(H) 0.00 - 0.04 x10(3)/ L [facility] Blood specimen (specimen) 07/23/2017 12:45 AM EDT 07/23/2017 12:51 AM EDT Narrative Resulting Agency Comment Spec In Lab Sriram Contreras MD HEMATOLOGY ORDERAB LES [facility] [place] [address] * (ABNORMAL) Hemogram (07/23/2017 12:45 AM EDT) Pathologist [facility] White Blood Cell 10.2(H) 4.0 - 9.5 x10(3)/ L [facility] Red Blood Cell 3.62(L) 4.58 - 5.54 x10(6)/mc L [facility] Hemoglobin 11.1(L) 13.7 - 16.5 gm/dL [facility] Hematocrit 33.5(L) 40.5 - 48.5 % [facility] Mean Cell Volume 92.5 82.9 - 93.1 fL [facility] Mean Cell Hemoglobin 30.7 27.5 - 32.1 pg [facility] Mean Cell Hemoglobin Concentration 33.1 32.0 - 35.7 gm/dL [facility] Platelet 165 145 - 357 x10(3)/[facility] LABORATORY RDW Standard Deviation 46.6(H) 36.0 - 45.0 [facility] RDW coefficient of variation 13.7 11.4 - 13.8 % [facility] Mean Platelet Volume 9.9 7.6 - 12.9 [facility] LAB[facility]ORY NRBC% auto 0.0 % [facility] NRBC Absolute 0.000 0.000 - 0.000 x10(3)/[facility] Blood specimen (specimen) 07/23/2017 12:45 AM EDT 07/23/2017 12:51 AM EDT Narrative Resulting Agency Comment Spec In Lab Sriram Contreras MD HEMATOLOGY ORDERAB LES [facility] [place] [address] * (ABNORMAL) Basic Metabolic Panel (non-fasting) (07/23/2017 12:45 AM EDT) [facility] Glucose 127 65 - 199 mg/dL [facility] Comment:Diabetes: >=200 mg/d L plus symptoms Blood Urea Nitrogen 20 10 - 20 mg/dL [facility] [...] - 107 mmol/L [facility] Carbon Dioxide 26 22 - 31 mmol/L [facility] Anion Gap 11 5 - 15 mmol/L [facility] Calcium 8.3(L) 8.5 - 10.5 mg/dL [facility] Est Glomerular Filtration Rate [...] the following links into your internet browser. [email or web address] Blood specimen (specimen) 07/23/2017 12:45 AM EDT 07/23/2017 12:51 AM EDT Narrative Resulting Agency Comment Spec In Lab Sriram Contreras MD CHEMISTRY ORDERABL ES [facility] [place] [address] * POCT Glucose (07/22/2017 11:59 PM EDT) Glucose, POC 113 65 - 199 mg/dL [facility] Comment: Supplemental ranges: <140 mg/dL before meals <180 mg/dL all other times of the day Blood specimen (specimen) 07/22/2017 11:59 PM EDT 07/22/2017 11:59 PM EDT Sriram Contreras MD POINT OF CARE TEST ORDERABLES Performing Organization Address City/[facility]/ZIP Co de Phone Number [facility] [place] [address] * POCT Glucose (07/22/2017 8:07 PM EDT) Glucose, POC 111 65 - 199 mg/dL [facility] Comment: Supplemental ranges: <140 mg/dL before meals <180 mg/dL all other times of the day Blood specimen (specimen) 07/22/2017 8:07 PM EDT 07/22/2017 8:07 PM EDT Sriram Contreras MD POINT OF CARE TEST ORDERABLES Performing Organization Address City/[facility] Co de Phone Number [facility] [place] [address] * POCT Glucose (07/22/2017 4:00 PM EDT) Glucose, POC 112 65 - 199 mg/dL [facility] Comment: Supplemental ranges: <140 mg/dL before meals <180 mg/dL all other times of the day Blood specimen (specimen) 07/22/2017 4:00 PM EDT 07/22/2017 4:00 PM EDT Sriram Contreras MD POINT OF CARE TEST ORDERABLES Performing Organization Address City/[facility] Co de Phone Number [facility] [place] [address] * (ABNORMAL) APTT (07/22/2017 4:00 PM EDT) Partial Thromboplastin Time 92(H) 25 - 35 sec [facility] [...] ORDERAB LES Performing Organization Address [facility] Co de Phone Number [facility] [place] [address] * POCT Glucose (07/22/2017 11:45 AM EDT) [facility] Glucose, POC 111 65 - 199 mg/dL [facility] Comment: Supplemental ranges: <140 mg/dL before meals <180 mg/dL all other times of the day Blood specimen (specimen) 07/22/2017 11:45 AM EDT 07/22/2017 11:45 AM EDT Sriram Contreras MD POINT OF CARE TEST ORDERABLES Performing Organization Address [facility] Co de Phone Number [facility] [place] [address] * (ABNORMAL) APTT (07/22/2017 8:30 AM EDT) [facility] Signature Partial Thromboplastin Time 83(H) 25 - 35 sec [facility] [...] MD HEMATOLOGY ORDERAB LES Performing Organization Address City/[facility]/ZIP Co de Phone Number [facility] [place] [address] * POCT Glucose (07/22/2017 8:28 AM EDT) [facility] Glucose, POC 118 65 - 199 mg/dL [facility] Comment: Supplemental ranges: <140 mg/dL before meals <180 mg/dL all other times of the day Blood specimen (specimen) 07/22/2017 8:28 AM EDT 07/22/2017 8:28 AM EDT Sriram Contreras MD POINT OF CARE TEST ORDERABLES Performing Organization Address [facility] Co de Phone Number [facility] [place] [address] * (ABNORMAL) BLOOD GAS 2 ARTERIAL (07/22/2017 8:27 AM EDT) [facility] pH, Arterial 7.42 7.35 - 7.45 [facility] PCO2, Arterial 39 35 - 45 mmHg [facility] PO2, Arterial 78(L) 85 - 104 mmHg [facility] Bicarbonate, Arterial 24.8 20.0 - 26.0 mmol/L [facility] Base Excess, Arterial 0.3 -3.0 - 3.0 mmol/L [facility] Hgb Blood Gas 13.4(L) 13.7 - 16.5 gm/dL [facility] Oxyhemoglobin, Arterial 94.2 94.0 - 97.0 % [facility] Carboxyhemoglob in, Arterial 0.3 % [facility] Comment: Nonsmokers: 0.5-1.5% COHB Smokers: Variable, but usually less than 10% Toxic: 20-30% COHB Lethal: Greater than 60% COHB Methemoglobin, Arterial 0.6 <=1.5 % [facility] Na Whole Blood 140 [...] [facility] FIO2 Art 40 % [facility] PF Ratio Art 195 [facility] Blood specimen (specimen) 07/22/2017 8:27 AM EDT 07/22/2017 8:27 AM EDT Sriram Contreras MD POINT OF CARE TEST ORDERABLES Performing Organization Address City/State/[facility] Co de Phone Number [facility] [place] [address] * (ABNORMAL) Differential, Automated (07/22/2017 3:10 AM EDT) Neutrophil % 72.0 % [facility] Neutrophil Absolute 8.75(H) 1.70 - 6.10 x10(3)/mc L [facility] Lymph % 15.0 % [facility] Lymphocytes Abs 1.8 0.9 - 3.2 x10(3)/mc L [facility] Monocyte % 8.0 % [facility] Monocyte Abs 1.0(H) 0.3 - 0.9 x10(3)/mc L [facility] Eos % 2.4 % [facility] Eosinophils Abs 0.3 0.0 - 0.4 x10(3)/mc L [facility] Basophil % 0.3 % [facility] Baso Absolute 0.0 0.0 - 0.1 x10(3)/ L [facility] Immature Gran % 2.30 % [facility] Comment: Immature granulocytes(IG's)percentage and absolute count will include metamyelocytes, myelocytes, and promyelocytes. Blood smears from CBCs yielding IG's will be scanned manually for concordance. If this scan disagrees with the automated IG or if promyelocytes are noted, a manual differential will be performed. Immature Gran Absolute 0.28(H) 0.00 - 0.04 x10(3)/ L [facility] Blood specimen (specimen) 07/22/2017 3:10 AM EDT 07/22/2017 3:15 AM EDT Narrative Resulting Agency Comment Spec In Lab Sriram Contreras MD HEMATOLOGY ORDERAB LES Performing Organization Address City/State/[facility] Co de Phone Number [facility] [place] [address] * (ABNORMAL) Hemogram (07/22/2017 3:10 AM EDT) White Blood Cell 12.2(H) 4.0 - 9.5 x10(3)/[facility]AT[facility] Red Blood Cell 4.05(L) 4.58 - 5.54 x10(6)/ L [facility] Hemoglobin 12.5(L) 13.7 - 16.5 gm/dL [facility] Hematocrit 37.9(L) 40.5 - 48.5 % [facility] Mean Cell Volume 93.6(H) 82.9 - 93.1 fL [facility] Mean Cell Hemoglobin 30.9 27.5 - 32.1 pg [facility] Mean Cell Hemoglobin Concentration 33.0 32.0 - 35.7 gm/dL [facility] Platelet 168 145 - 357 x10(3)/[facility]ORAT[facility] RDW Standard Deviation 48.9(H) 36.0 - 45.0 fL [facility] RDW coefficient of variation 14.1(H) 11.4 - 13.8 % [facility] Mean Platelet Volume 10.2 7.6 - 12.9 fL [facility] NRBC% auto 0.0 % [facility] NRBC Absolute 0.000 0.000 - 0.000 x10(3)/mc L [facility] Blood specimen (specimen) 07/22/2017 3:10 AM EDT 07/22/2017 3:15 AM EDT Narrative Resulting Agency Comment Spec In Lab Sriram Contreras MD HEMATOLOGY ORDERAB LES Performing Organization Address [facility] de Phone Number [facility] [place] [address] * (ABNORMAL) APTT (07/22/2017 3:10 AM EDT) Partial Thromboplastin Time 89(H) 25 - 35 sec [facility] ORDERAB LES Performing Organization Address [facility] Co de Phone Number [facility] [place] [address] * (ABNORMAL) Basic Metabolic Panel (non-fasting) (07/22/2017 3:10 AM EDT) Glucose 121 65 - 199 mg/dL [facility] Comment:Diabetes: >=200 mg/d L plus symptoms Blood Urea Nitrogen 23(H) 10 - 20 mg/dL [facility] [...] - 107 mmol/L [facility] Carbon Dioxide 25 22 - 31 mmol/L [facility] Anion Gap 13 5 - 15 mmol/L [facility] Calcium 8.3(L) 8.5 - 10.5 mg/dL [facility] Est Glomerular Filtration Rate [...] the following links into your internet browser. [email or web address] Blood specimen (specimen) 07/22/2017 3:10 AM EDT 07/22/2017 3:15 AM EDT Narrative Resulting Agency Comment Spec In Lab Sriram Contreras MD CHEMISTRY ORDERABL ES [facility] [place] [address] * POCT Glucose (07/22/2017 3:08 AM EDT) Glucose, POC 109 65 - 199 mg/dL [facility] Comment: Supplemental ranges: <140 mg/dL before meals <180 mg/dL all other times of the day Blood specimen (specimen) 07/22/2017 3:08 AM EDT 07/22/2017 3:08 AM EDT Sriram Contreras MD POINT OF CARE TEST ORDERABLES Performing Organization Address City/[facility] Co de Phone Number [facility] [place] [address] * POCT Glucose (07/21/2017 11:52 PM EDT) Glucose, POC 135 65 - 199 mg/dL [facility] Comment: Supplemental ranges: <140 mg/dL before meals <180 mg/dL all other times of the day Blood specimen (specimen) 07/21/2017 11:52 PM EDT 07/21/2017 11:52 PM EDT Sriram Contreras MD POINT OF CARE TEST ORDERABLES Performing Organization Address [facility] de Phone Number [facility] [place] [address] * EKG 12 Lead (07/21/2017 10:42 PM EDT) Ventricular rate 75 BPM MUSE SYSTEM Atrial Rate 258 BPM MUSE SYSTEM QRS Duration 86 ms MUSE SYSTEM Q-T Interval 400 ms MUSE SYSTEM QTC Calculated (Bezet) 446 ms MUSE SYSTEM Calculated R Hanna 61 degrees MUSE SYSTEM Calculated T Hanna 136 degrees MUSE SYSTEM INTERPRETATION Atrial fibrillation [...] EDT) Magnesium 0.80 0.69 - 1.07 mmol/L [facility] Blood specimen (specimen) 07/21/2017 10:35 PM EDT 07/21/2017 10:40 PM EDT Narrative Resulting Agency Comment Spec In Lab Sriram Contreras MD CHEMISTRY ORDERABL ES [facility] [place] [address] * (ABNORMAL) Basic Metabolic Panel (non-fasting) (07/21/2017 10:35 PM EDT) Glucose 135 65 - 199 mg/dL [facility] Comment:Diabetes: >=200 mg/d L plus symptoms Blood Urea Nitrogen 23(H) 10 - 20 mg/dL [facility] - 107 mmol/L [facility] Carbon Dioxide 25 22 - 31 mmol/L [facility] Anion Gap 12 5 - 15 mmol/L [facility] Calcium 8.7 8.5 - 10.5 mg/dL [facility] Est Glomerular Filtration Rate [...] the following links into your internet browser. [email or web address] Blood specimen (specimen) 07/21/2017 10:35 PM EDT 07/21/2017 10:40 PM EDT Narrative Resulting Agency Comment Spec In Lab Sriram Contreras MD CHEMISTRY ORDERABL ES Performing Organization Address [facility] de Phone Number [facility] [place] [address] * (ABNORMAL) APTT (07/21/2017 9:10 PM EDT) [facility] Partial Thromboplastin Time 87(H) 25 - 35 sec [facility] ORDERAB LES Performing Organization Address [facility] Co de Phone Number [facility] [place] [address] * POCT Glucose (07/21/2017 7:49 PM EDT) [facility] Glucose, POC 117 65 - 199 mg/dL [facility] Comment: Supplemental ranges: <140 mg/dL before meals <180 mg/dL all other times of the day Blood specimen (specimen) 07/21/2017 7:49 PM EDT 07/21/2017 7:49 PM EDT Sriram Contreras MD POINT OF CARE TEST ORDERABLES Performing Organization Address [facility] de Phone Number [facility] [place] [address] * POCT Glucose (07/21/2017 4:10 PM EDT) Glucose, POC 116 65 - 199 mg/dL [facility] Comment: Supplemental ranges: <140 mg/dL before meals <180 mg/dL all other times of the day Blood specimen (specimen) 07/21/2017 4:10 PM EDT 07/21/2017 4:10 PM EDT Sriram Contreras MD POINT OF CARE TEST ORDERABLES Performing Organization Address [facility] Phone Number [facility] [place] [address] * (ABNORMAL) APTT (07/21/2017 4:10 PM EDT) Partial Thromboplastin Time 78(H) 25 - 35 sec [facility] [...] MD HEMATOLOGY ORDERAB LES Performing Organization Address [facility] Co de Phone Number [facility] [place] [address] * POCT Glucose (07/21/2017 12:04 PM EDT) Glucose, POC 138 65 - 199 mg/dL [facility] Comment: Supplemental ranges: <140 mg/dL before meals <180 mg/dL all other times of the day Blood specimen (specimen) 07/21/2017 12:04 PM EDT 07/21/2017 12:04 PM EDT Sriram Contreras MD POINT OF CARE TEST ORDERABLES Performing Organization Address [facility] de Phone Number [facility] [place] [address] * C. Difficile Screen (07/21/2017 9:00 AM EDT) C Diff Interp Negative Negative [facility] Comment: C. diff ??Negative [...] - GEN ERAL ORDERABLES Performing Organization Address [facility] de Phone Number [facility] [place] [address] * Potassium (07/21/2017 8:30 AM EDT) Potassium [...] MD CHEMISTRY ORDERABL ES Performing Organization Address [facility] Co de Phone Number [facility] [place] [address] * (ABNORMAL) APTT (07/21/2017 8:30 AM EDT) [facility] Partial Thromboplastin Time 63(H) 25 - 35 sec [facility] [...] MD HEMATOLOGY ORDERAB LES Performing Organization Address [facility] Co de Phone Number [facility] [place] [address] * POCT Glucose (07/21/2017 8:24 AM EDT) [facility] Glucose, POC 131 65 - 199 mg/dL [facility] Comment: Supplemental ranges: <140 mg/dL before meals <180 mg/dL all other times of the day Blood specimen (specimen) 07/21/2017 8:24 AM EDT 07/21/2017 8:24 AM EDT Sriram Contreras MD POINT OF CARE TEST ORDERABLES Performing Organization Address [facility] Co de Phone Number [facility] [place] [address] * (ABNORMAL) BLOOD GAS 2 ARTERIAL (07/21/2017 7:42 AM EDT) [facility] pH, Arterial 7.44 7.35 - 7.45 [facility] PCO2, Arterial 37 35 - 45 mmHg [facility] PO2, Arterial 72(L) 85 - 104 mmHg [facility] Bicarbonate, Arterial 24.5 20.0 - 26.0 mmol/L [facility] Base Excess, Arterial 0.3 -3.0 - 3.0 mmol/L [facility] Hgb Blood Gas 14.0 13.7 - 16.5 gm/dL [facility] Oxyhemoglobin, Arterial 93.8(L) 94.0 - 97.0 % [facility] Carboxyhemoglob in, Arterial 0.3 % [facility] Comment: Nonsmokers: 0.5-1.5% COHB Smokers: Variable, but usually less than 10% Toxic: 20-30% COHB Lethal: Greater than 60% COHB Methemoglobin, Arterial 0.5 <=1.5 % [facility] Na Whole Blood 143 [...] [facility] FIO2 Art 40 % [facility] PF Ratio Art 180 [facility] Blood specimen (specimen) 07/21/2017 7:42 AM EDT 07/21/2017 7:42 AM EDT Sriram Contreras MD POINT OF CARE TEST ORDERABLES [facility] [place] [address] * POCT Glucose (07/21/2017 3:21 AM EDT) [facility] Glucose, POC 116 65 - 199 mg/dL [facility] Comment: Supplemental ranges: <140 mg/dL before meals <180 mg/dL all other times of the day Blood specimen (specimen) 07/21/2017 3:21 AM EDT 07/21/2017 3:21 AM EDT Sriram Contreras MD POINT OF CARE TEST ORDERABLES Performing Organization Address [facility] de Phone Number [facility] [place] [address] * Potassium (07/21/2017 3:20 AM EDT) [facility] Potassium 4.0 3.5 - 5.0 mmol/L [facility] [...] MD CHEMISTRY ORDERABL ES Performing Organization Address [facility] de Phone Number [facility] [place] [address] * (ABNORMAL) APTT (07/21/2017 1:05 AM EDT) [facility] Partial Thromboplastin Time 42(H) 25 - 35 sec [facility] [...] MD HEMATOLOGY ORDERAB LES Performing Organization Address City/[facility]/ZIP Co de Phone Number [facility] [place] [address] * (ABNORMAL) Differential, Automated (07/21/2017 12:25 AM EDT) Neutrophil % 75.8 % [facility] Neutrophil Absolute 7.59(H) 1.70 - 6.10 x10(3)/mc L [facility] Lymph % 12.8 % [facility] Lymphocytes Abs 1.3 0.9 - 3.2 x10(3)/[facility] LABORATORY Monocyte % 9.0 % [facility] Monocyte Abs 0.9 0.3 - 0.9 x10(3)/[facility] LABORATORY Eos % 1.1 % [facility] Eosinophils Abs 0.1 0.0 - 0.4 x10(3)/[facility] LABORAT[facility] Basophil % 0.3 % [facility] Baso Absolute 0.0 0.0 - 0.1 x10(3)/[facility] LABORATORY Immature Gran % 1.00 % [facility] Comment: Immature granulocytes(IG's)percentage and absolute count will include metamyelocytes, myelocytes, and promyelocytes. Blood smears from CBCs yielding IG's will be scanned manually for concordance. If this scan disagrees with the automated IG or if promyelocytes are noted, a manual differential will be performed. Immature Gran Absolute 0.10(H) 0.00 - 0.04 x10(3)/ L [facility] Blood specimen (specimen) 07/21/2017 12:25 AM EDT 07/21/2017 12:48 AM EDT Narrative Resulting Agency Comment Spec In Lab Sriram Contreras MD HEMATOLOGY ORDERAB LES Performing Organization Address City/[facility]/ZIP Co de Phone Number [facility] [place] [address] * (ABNORMAL) Hemogram (07/21/2017 12:25 AM EDT) [facility] White Blood Cell 10.0(H) 4.0 - 9.5 x10(3)/[facility] LABORATORY Red Blood Cell 4.24(L) 4.58 - 5.54 x10(6)/ L [facility] Hemoglobin 13.2(L) 13.7 - 16.5 gm/dL [facility] Hematocrit 39.4(L) 40.5 - 48.5 % [facility] Mean Cell Volume 92.9 82.9 - 93.1 fL [facility] Mean Cell Hemoglobin 31.1 27.5 - 32.1 pg [facility] Mean Cell Hemoglobin Concentration 33.5 32.0 - 35.7 gm/dL [facility] Platelet 163 145 - 357 x10(3)/[facility] RDW Standard Deviation 48.0(H) 36.0 - 45.0 [facility] RDW coefficient of variation 14.1(H) 11.4 - 13.8 % [facility] Mean Platelet Volume 10.2 7.6 - 12.9 fL [facility] NRBC% auto 0.0 % [facility] NRBC Absolute 0.000 0.000 - 0.000 x10(3)/[facility] Blood specimen (specimen) 07/21/2017 12:25 AM EDT 07/21/2017 12:48 AM EDT Narrative Resulting Agency Comment Spec In Lab Sriram Contreras MD HEMATOLOGY ORDERAB LES [facility] [place] [address] * (ABNORMAL) Basic Metabolic Panel (non-fasting) (07/21/2017 12:25 AM EDT) Glucose 132 65 - 199 mg/dL [facility] Comment:Diabetes: >=200 mg/d L plus symptoms Blood Urea Nitrogen 22(H) 10 - 20 mg/dL [facility] - 107 mmol/L [facility] Carbon Dioxide 25 22 - 31 mmol/L [facility] Anion Gap 11 5 - 15 mmol/L [facility] Calcium 8.5 8.5 - 10.5 mg/dL [facility] Est Glomerular Filtration Rate [...] the following links into your internet browser. [email or web address] Blood specimen (specimen) 07/21/2017 12:25 AM EDT 07/21/2017 12:48 AM EDT Narrative Resulting Agency Comment Spec In Lab Sriram Contreras MD CHEMISTRY ORDERABL ES [facility] [place] [address] * (ABNORMAL) BLOOD GAS 2 ARTERIAL (07/21/2017 12:21 AM EDT) pH, Arterial 7.44 7.35 - 7.45 [facility] PCO2, Arterial 37 35 - 45 mmHg [facility] PO2, Arterial 70(L) 85 - 104 mmHg [facility] Bicarbonate, Arterial 24.1 20.0 - 26.0 mmol/L [facility] Base Excess, Arterial 0.1 -3.0 - 3.0 mmol/L [facility] Hgb Blood Gas 14.3 13.7 - 16.5 gm/dL [facility] Oxyhemoglobin, Arterial 92.8(L) 94.0 - 97.0 % [facility] Carboxyhemoglob in, Arterial 0.0 % [facility] Comment: Nonsmokers: 0.5-1.5% COHB Smokers: Variable, but usually less than 10% Toxic: 20-30% COHB Lethal: Greater than 60% COHB Methemoglobin, Arterial 0.4 <=1.5 % [facility] Na Whole Blood 145 [...] [facility] FIO2 Art 40 % [facility] PF Ratio Art 175 [facility] Temp Art 37.8 Celsius [facility] Blood specimen (specimen) 07/21/2017 12:21 AM EDT 07/21/2017 12:21 AM EDT Sriram Contreras MD POINT OF CARE TEST ORDERABLES Performing Organization Address [facility] Co de Phone Number [facility] [place] [address] * POCT Glucose (07/21/2017 12:00 AM EDT) Glucose, POC 119 65 - 199 mg/dL [facility] Comment: Supplemental ranges: <140 mg/dL before meals <180 mg/dL all other times of the day Blood specimen (specimen) 07/21/2017 07/21/2017 Sriram Contreras MD POINT OF CARE TEST ORDERABLES Performing Organization Address [facility] Co de Phone Number [facility] [place] [address] * Potassium (07/20/2017 9:50 PM EDT) Potassium [...] ORDERABL ES Performing Organization Address [facility] Co de Phone Number [facility] [place] [address] * EKG 12 Lead (07/20/2017 8:40 PM EDT) Pathologist [facility] Ventricular rate 77 BPM MUSE SYSTEM Atrial Rate 394 BPM MUSE SYSTEM QRS Duration 86 ms MUSE SYSTEM Q-T Interval 396 ms MUSE SYSTEM QTC Calculated (Bezet) 448 ms MUSE SYSTEM Calculated R Hanna 73 degrees MUSE SYSTEM Calculated T Hanna 127 degrees MUSE SYSTEM INTERPRETATION Atrial fibrillation [...] * POCT Glucose (07/20/2017 7:28 PM EDT) [facility] Glucose, POC 126 65 - 199 mg/dL [facility] Comment: Supplemental ranges: <140 mg/dL before meals <180 mg/dL all other times of the day Blood specimen (specimen) 07/20/2017 7:28 PM EDT 07/20/2017 7:28 PM EDT Sriram Contreras MD POINT OF CARE TEST ORDERABLES [facility] [place] [address] * (ABNORMAL) Differential, Automated (07/20/2017 5:15 PM EDT) [facility] Neutrophil % 79.7 % [facility] Neutrophil Absolute 8.01(H) 1.70 - 6.10 x10(3)/mc L [facility] Lymph % 10.4 % [facility] Lymphocytes Abs 1.0 0.9 - 3.2 x10(3)/mc L [facility] Monocyte % 8.0 % [facility] Monocyte Abs 0.8 0.3 - 0.9 x10(3)/[facility] Eos % 0.7 % [facility] Eosinophils Abs 0.1 0.0 - 0.4 x10(3)/[facility] Basophil % 0.2 % [facility] Baso Absolute 0.0 0.0 - 0.1 x10(3)/[facility] Immature Gran % 1.00 % [facility] Comment: Immature granulocytes(IG's)percentage and absolute count will include metamyelocytes, myelocytes, and promyelocytes. Blood smears from CBCs yielding IG's will be scanned manually for concordance. If this scan disagrees with the automated IG or if promyelocytes are noted, a manual differential will be performed. Immature Gran Absolute 0.10(H) 0.00 - 0.04 x10(3)/[facility] Blood specimen (specimen) 07/20/2017 5:15 PM EDT 07/20/2017 5:26 PM EDT Narrative Resulting Agency Comment Spec In Lab Sriram Contreras MD HEMATOLOGY ORDERAB LES Performing Organization Address City/State/[facility] Co de Phone Number [facility] [place] [address] * (ABNORMAL) Hemogram (07/20/2017 5:15 PM EDT) White Blood Cell 10.0(H) 4.0 - 9.5 x10(3)/[facility] Red Blood Cell 4.28(L) 4.58 - 5.54 x10(6)/[facility] Hemoglobin 13.3(L) 13.7 - 16.5 gm/dL [facility] Hematocrit 39.9(L) 40.5 - 48.5 % [facility] Mean Cell Volume 93.2(H) 82.9 - 93.1 fL [facility] Mean Cell Hemoglobin 31.1 27.5 - 32.1 pg [facility] Mean Cell Hemoglobin Concentration 33.3 32.0 - 35.7 gm/dL [facility] Platelet 163 145 - 357 x10(3)/mc L [facility] RDW Standard Deviation 47.7(H) 36.0 - 45.0 fL [facility] RDW coefficient of variation 14.1(H) 11.4 - 13.8 % [facility] Mean Platelet Volume 10.1 7.6 - 12.9 fL [facility] NRBC% auto 0.0 % [facility] NRBC Absolute 0.000 0.000 - 0.000 x10(3)/mc L [facility] Blood specimen (specimen) 07/20/2017 5:15 PM EDT 07/20/2017 5:26 PM EDT Narrative Resulting Agency Comment Spec In Lab Sriram Contreras MD HEMATOLOGY ORDERAB LES Performing Organization Address [facility] Co de Phone Number [facility] [place] [address] * APTT (07/20/2017 5:15 PM EDT) [facility] Partial Thromboplastin Time 28 25 - 35 sec [facility] MD HEMATOLOGY ORDERAB LES Performing Organization Address City/[facility]/ZIP Co de Phone Number [facility] [place] [address] * Magnesium (07/20/2017 4:50 PM EDT) [facility] Magnesium 1.00 0.69 - 1.07 mmol/L [facility] Blood specimen (specimen) 07/20/2017 4:50 PM EDT 07/20/2017 5:10 PM EDT Narrative Resulting Agency Comment Spec In Lab Sylvia Vaughn MD CHEMISTRY ORDERABLES [facility] [place] [address] * (ABNORMAL) Basic Metabolic Panel (non-fasting) (07/20/2017 4:50 PM EDT) Glucose 143 65 - 199 mg/dL [facility] Comment:Diabetes: >=200 mg/d L plus symptoms Blood Urea Nitrogen 23(H) 10 - 20 mg/dL [facility] - 107 mmol/L [facility] Carbon Dioxide 25 22 - 31 mmol/L [facility] Anion Gap 11 5 - 15 mmol/L [facility] Calcium 8.5 8.5 - 10.5 mg/dL [facility] Est Glomerular Filtration Rate [...] the following links into your internet browser. [email or web address] Blood specimen (specimen) 07/20/2017 4:50 PM EDT 07/20/2017 5:10 PM EDT Narrative Resulting Agency Comment Spec In Lab Sylvia Vaughn MD CHEMISTRY ORDERABLES Performing Organization Address [facility] Co de Phone Number [facility] [place] [address] * POCT Glucose (07/20/2017 3:41 PM EDT) [facility] Glucose, POC 138 65 - 199 mg/dL [facility] Comment: Supplemental ranges: <140 mg/dL before meals <180 mg/dL all other times of the day Blood specimen (specimen) 07/20/2017 3:41 PM EDT 07/20/2017 3:41 PM EDT Sriram Contreras MD POINT OF CARE TEST ORDERABLES Performing Organization Address [facility] Co de Phone Number [facility] [place] [address] * CTA Chest for Pulmonary Embolus w [...] Cuevas at the time of this interpretation rSiram Contreras MD IMG CT ORDERABLES * (ABNORMAL) [...] - GEN ERAL ORDERABLES Performing Organization Address [facility]/ZIP Co de Phone Number [facility] [place] [address] * POCT Glucose (07/20/2017 11:45 AM EDT) [facility] Glucose, POC 125 65 - 199 mg/dL [facility] Comment: Supplemental ranges: <140 mg/dL before meals <180 mg/dL all other times of the day Blood specimen (specimen) 07/20/2017 11:45 AM EDT 07/20/2017 11:45 AM EDT Sriram Contreras MD POINT OF CARE TEST ORDERABLES Performing Organization Address [facility] Co de Phone Number [facility] [place] [address] * (ABNORMAL) BLOOD GAS 2 ARTERIAL (07/20/2017 11:43 AM EDT) [facility] pH, Arterial 7.45 7.35 - 7.45 [facility] PCO2, Arterial 35 35 - 45 mmHg [facility] PO2, Arterial 57(L) 85 - 104 mmHg [facility] Bicarbonate, Arterial 23.9 20.0 - 26.0 mmol/L [facility] Base Excess, Arterial 0.1 -3.0 - 3.0 mmol/L [facility] Hgb Blood Gas 14.6 13.7 - 16.5 gm/dL [facility] Oxyhemoglobin, Arterial 89.5(L) 94.0 - 97.0 % [facility] Carboxyhemoglob in, Arterial 0.0 % [facility] Comment: Nonsmokers: 0.5-1.5% COHB Smokers: Variable, but usually less than 10% Toxic: 20-30% COHB Lethal: Greater than 60% COHB Methemoglobin, Arterial 0.5 <=1.5 % [facility] Na Whole Blood 145 [...] [facility] FIO2 Art 35 % [facility] PF Ratio Art 163 [facility] Temp Art 37.6 Celsius [facility] Blood specimen (specimen) 07/20/2017 11:43 AM EDT 07/20/2017 11:43 AM EDT Sriram Contreras MD POINT OF CARE TEST ORDERABLES Performing Organization Address City/[facility]/[place] [address] * Potassium (07/20/2017 10:15 AM EDT) Potassium [...] MD CHEMISTRY ORDERABL ES Performing Organization Address City/[facility]/ZIP Co de Phone Number [facility] [place] [address] * XR Chest PA or AP 1 [...] Glucose, POC 134 65 - 199 mg/dL [facility] Comment: Supplemental ranges: <140 mg/dL before meals <180 mg/dL all other times of the day Blood specimen (specimen) 07/20/2017 7:29 AM EDT 07/20/2017 7:29 AM EDT Sriram Contreras MD POINT OF CARE TEST ORDERABLES Performing Organization Address City/[facility]/ZIP Co de Phone Number [facility] [place] [address] * Potassium (07/20/2017 7:28 AM EDT) Potassium [...] ORDERABL ES Performing Organization Address [facility] Co de Phone Number [facility] [place] [address] * (ABNORMAL) Differential, Automated (07/20/2017 3:15 AM EDT) Neutrophil % 83.6 % [facility] Neutrophil Absolute 8.93(H) 1.70 - 6.10 x10(3)/mc L [facility] Lymph % 9.1 % [facility] Lymphocytes Abs 1.0 0.9 - 3.2 x10(3)/mc L [facility] Monocyte % 6.3 % [facility] Monocyte Abs 0.7 0.3 - 0.9 x10(3)/mc L [facility] Eos % 0.1 % [facility] Eosinophils Abs 0.0 0.0 - 0.4 x10(3)/mc L [facility] Basophil % 0.2 % [facility] Baso Absolute 0.0 0.0 - 0.1 x10(3)/mc L [facility] Immature Gran % 0.70 % [facility] Comment: Immature granulocytes(IG's)percentage and absolute count will include metamyelocytes, myelocytes, and promyelocytes. Blood smears from CBCs yielding IG's will be scanned manually for concordance. If this scan disagrees with the automated IG or if promyelocytes are noted, a manual differential will be performed. Immature Gran Absolute 0.07(H) 0.00 - 0.04 x10(3)/mc L [facility] Blood specimen (specimen) 07/20/2017 3:15 AM EDT 07/20/2017 3:58 AM EDT Narrative Resulting Agency Comment Spec In Lab Sriram Contreras MD HEMATOLOGY ORDERAB LES [facility] [place] [address] * (ABNORMAL) Hemogram (07/20/2017 3:15 AM EDT) White Blood Cell 10.7(H) 4.0 - 9.5 x10(3)/mc L [facility] Red Blood Cell 4.40(L) 4.58 - 5.54 x10(6)/mc L [facility] Hemoglobin 13.7 13.7 - 16.5 gm/dL [facility] Hematocrit 39.6(L) 40.5 - 48.5 % [facility] Mean Cell Volume 90.0 82.9 - 93.1 fL [facility] Mean Cell Hemoglobin 31.1 27.5 - 32.1 pg [facility] Mean Cell Hemoglobin Concentration 34.6 32.0 - 35.7 gm/dL [facility] Platelet 186 145 - 357 x10(3)/mc L [facility] RDW Standard Deviation 45.8(H) 36.0 - 45.0 fL [facility] RDW coefficient of variation 13.9(H) 11.4 - 13.8 % [facility] Mean Platelet Volume 9.9 7.6 - 12.9 fL [facility] NRBC% auto 0.0 % [facility] NRBC Absolute 0.000 0.000 - 0.000 x10(3)/mc L [facility] Blood specimen (specimen) 07/20/2017 3:15 AM EDT 07/20/2017 3:58 AM EDT Narrative Resulting Agency Comment Spec In Lab Sriram Contreras MD HEMATOLOGY ORDERAB LES [facility] [place] [address] * (ABNORMAL) Basic Metabolic Panel (non-fasting) (07/20/2017 3:15 AM EDT) Glucose 126 65 - 199 mg/dL [facility] Comment:Diabetes: >=200 mg/d L plus symptoms Blood Urea Nitrogen 23(H) 10 - 20 mg/dL [facility] - 107 mmol/L [facility] Carbon Dioxide 23 22 - 31 mmol/L [facility] Anion Gap 14 5 - 15 mmol/L [facility] Calcium 8.5 8.5 - 10.5 mg/dL [facility] Est Glomerular Filtration Rate [...] the following links into your internet browser. [email or web address] Blood specimen (specimen) 07/20/2017 3:15 AM EDT 07/20/2017 3:58 AM EDT Narrative Resulting Agency Comment Spec In Lab Sriram Contreras MD CHEMISTRY ORDERABL ES Performing Organization Address [facility] Co de Phone Number [facility] [place] [address] * POCT Glucose (07/20/2017 3:13 AM EDT) Glucose, POC 114 65 - 199 mg/dL [facility] Comment: Supplemental ranges: <140 mg/dL before meals <180 mg/dL all other times of the day Blood specimen (specimen) 07/20/2017 3:13 AM EDT 07/20/2017 3:13 AM EDT Sriram Contreras MD POINT OF CARE TEST ORDERABLES Performing Organization Address [facility] Co de Phone Number [facility] [place] [address] * (ABNORMAL) BLOOD GAS 2 ARTERIAL (07/19/2017 11:36 PM EDT) pH, Arterial 7.51(H) 7.35 - 7.45 [facility] PCO2, Arterial 29(L) 35 - 45 mmHg [facility] PO2, Arterial 77(L) 85 - 104 mmHg [facility] Bicarbonate, Arterial 22.2 20.0 - 26.0 mmol/L [facility] Base Excess, Arterial -0.8 -3.0 - 3.0 mmol/L [facility] Hgb Blood Gas 14.7 13.7 - 16.5 gm/dL [facility] Oxyhemoglobin, Arterial 94.7 94.0 - 97.0 % [facility] Carboxyhemoglob in, Arterial 0.3 % [facility] Comment: Nonsmokers: 0.5-1.5% COHB Smokers: Variable, but usually less than 10% Toxic: 20-30% COHB Lethal: Greater than 60% COHB Methemoglobin, Arterial 0.7 <=1.5 % [facility] Na Whole Blood 142 [...] [facility] FIO2 Art 50 % [facility] PF Ratio Art 154 [facility] Blood specimen (specimen) 07/19/2017 11:36 PM EDT 07/19/2017 11:36 PM EDT Sriram Contreras MD POINT OF CARE TEST ORDERABLES [facility] [place] [address] * POCT Glucose (07/19/2017 11:31 PM EDT) Glucose, POC 110 65 - 199 mg/dL [facility] Comment: Supplemental ranges: <140 mg/dL before meals <180 mg/dL all other times of the day Blood specimen (specimen) 07/19/2017 11:31 PM EDT 07/19/2017 11:31 PM EDT Sriram Contreras MD POINT OF CARE TEST ORDERABLES Performing Organization Address [facility] Co de Phone Number [facility] [place] [address] * Potassium (07/19/2017 11:30 PM EDT) Potassium [...] MD CHEMISTRY ORDERABL ES Performing Organization Address [facility] de Phone Number [facility] [place] [address] * POCT Glucose (07/19/2017 7:45 PM EDT) Glucose, POC 100 65 - 199 mg/dL [facility] Comment: Supplemental ranges: <140 mg/dL before meals <180 mg/dL all other times of the day Blood specimen (specimen) 07/19/2017 7:45 PM EDT 07/19/2017 7:45 PM EDT Sriram Contreras MD POINT OF CARE TEST ORDERABLES Performing Organization Address [facility] Co de Phone Number [facility] [place] [address] * Blood culture (07/19/2017 7:00 PM EDT) Blood Culture No growth at 5 days. [facility] Blood specimen (specimen) STRUCTURE OF LEFT WRIST REGION / Unknown 07/19/2017 7:00 PM EDT 07/19/2017 7:50 PM EDT Narrative Resulting Agency Comment Spec In Lab Sriram Contreras MD MICROBIOLOGY - BLO OD ORDERABLES Performing Organization Address City/[facility] Co de Phone Number [facility] [place] [address] * Blood culture (07/19/2017 6:50 PM EDT) Blood Culture No growth at 5 days. [facility] Blood specimen (specimen) STRUCTURE OF RIGHT WRIST REGION / Unknown 07/19/2017 6:50 PM EDT 07/19/2017 7:51 PM EDT Narrative Resulting Agency Comment Spec In Lab Sriram Contreras MD MICROBIOLOGY - BLO OD ORDERABLES Performing Organization Address [facility] Co de Phone Number [facility] [place] [address] * XR Chest PA or AP 1 [...] EDT) pH, Arterial 7.49(H) 7.35 - 7.45 [facility] PCO2, Arterial 32(L) 35 - 45 mmHg [facility] PO2, Arterial 66(L) 85 - 104 mmHg [facility] Bicarbonate, Arterial 23.2 20.0 - 26.0 mmol/L [facility] Base Excess, Arterial -0.2 -3.0 - 3.0 mmol/L [facility] Hgb Blood Gas 15.5 13.7 - 16.5 gm/dL [facility] Oxyhemoglobin, Arterial 93.1(L) 94.0 - 97.0 % [facility] Carboxyhemoglob in, Arterial 0.4 % [facility] Comment: Nonsmokers: 0.5-1.5% COHB Smokers: Variable, but usually less than 10% Toxic: 20-30% COHB Lethal: Greater than 60% COHB Methemoglobin, Arterial 0.6 <=1.5 % [facility] Na Whole Blood 158(H) [...] [facility] FIO2 Art 100 % [facility] PF Ratio Art 66 [facility] Blood specimen (specimen) 07/19/2017 5:12 PM EDT 07/19/2017 5:12 PM EDT Sriram Contreras MD POINT OF CARE TEST ORDERABLES Performing Organization Address [facility] Co de Phone Number [facility] [place] [address] * EKG 12 Lead (07/19/2017 4:55 PM EDT) Ventricular rate 85 BPM MUSE SYSTEM Atrial Rate 326 BPM MUSE SYSTEM QRS Duration 92 ms MUSE SYSTEM Q-T Interval 388 ms MUSE SYSTEM QTC Calculated (Bezet) 461 ms MUSE SYSTEM Calculated R Hanna 65 degrees MUSE SYSTEM Calculated T Hanna 4 degrees MUSE SYSTEM INTERPRETATION Atrial fibrillation [...] Contreras MD ECG ORDERABLES Performing Organization Address [facility] Co de Phone Number MUSE SYSTEM * Phosphorus (07/19/2017 4:50 PM EDT) Phosphorus 3.0 2.5 - 4.5 mg/dL [facility] Blood specimen (specimen) 07/19/2017 4:50 PM EDT 07/19/2017 5:05 PM EDT Narrative Resulting Agency Comment Spec In Lab Sriram Contreras MD CHEMISTRY ORDERABL ES [facility] [place] [address] * (ABNORMAL) Basic Metabolic Panel (non-fasting) (07/19/2017 4:50 PM EDT) Glucose 118 65 - 199 mg/dL [facility] Comment:Diabetes: >=200 mg/d L plus symptoms Blood Urea Nitrogen 19 10 - 20 mg/dL [facility] [...] - 107 mmol/L [facility] Carbon Dioxide 23 22 - 31 mmol/L [facility] Anion Gap 15 5 - 15 mmol/L [facility] [facility] Calcium 8.7 8.5 - 10.5 mg/dL [facility] Est Glomerular Filtration Rate [...] the following links into your internet browser. [email or web address] Blood specimen (specimen) 07/19/2017 4:50 PM EDT 07/19/2017 5:05 PM EDT Narrative Resulting Agency Comment Spec In Lab Sriram Contreras MD CHEMISTRY ORDERABL ES Performing Organization Address [facility] de Phone Number [facility] [place] [address] * Magnesium (07/19/2017 4:50 PM EDT) Magnesium 0.86 0.69 - 1.07 mmol/L [facility] Blood specimen (specimen) 07/19/2017 4:50 PM EDT 07/19/2017 5:05 PM EDT Narrative Resulting Agency Comment Spec In Lab Sriram Contreras MD CHEMISTRY ORDERABL ES Performing Organization Address [facility] de Phone Number [facility] [place] [address] * POCT Glucose (07/19/2017 3:37 PM EDT) Glucose, POC 101 65 - 199 mg/dL [facility] Comment: Supplemental ranges: <140 mg/dL before meals <180 mg/dL all other times of the day Blood specimen (specimen) 07/19/2017 3:37 PM EDT 07/19/2017 3:37 PM EDT Sriram Contreras MD POINT OF CARE TEST ORDERABLES Performing Organization Address [facility] Phone Number [facility] [place] [address] * XR Chest PA or AP 1 [...] Glucose, POC 100 65 - 199 mg/dL [facility] Comment: Supplemental ranges: <140 mg/dL before meals <180 mg/dL all other times of the day Blood specimen (specimen) 07/19/2017 12:36 PM EDT 07/19/2017 12:36 PM EDT Sriram Contreras MD POINT OF CARE TEST ORDERABLES [facility] [place] [address] * Potassium (07/19/2017 12:30 PM EDT) Potassium [...] CHEMISTRY ORDERABL ES [facility] [place] [address] * (ABNORMAL) BLOOD GAS 2 ARTERIAL (07/19/2017 12:17 PM EDT) pH, Arterial 7.50(H) 7.35 - 7.45 [facility] PCO2, Arterial 32(L) 35 - 45 mmHg [facility] PO2, Arterial 60(L) 85 - 104 mmHg [facility] Bicarbonate, Arterial 23.7 20.0 - 26.0 mmol/L [facility] Base Excess, Arterial 0.5 -3.0 - 3.0 mmol/L [facility] Hgb Blood Gas 14.8 13.7 - 16.5 gm/dL [facility] Oxyhemoglobin, Arterial 91.1(L) 94.0 - 97.0 % [facility] Carboxyhemoglob in, Arterial 0.1 % [facility] Comment: Nonsmokers: 0.5-1.5% COHB Smokers: Variable, but usually less than 10% Toxic: 20-30% COHB Lethal: Greater than 60% COHB Methemoglobin, Arterial 0.6 <=1.5 % [facility] Na Whole Blood 145 [...] [facility] FIO2 Art 45 % [facility] PF Ratio Art 133 [facility] Blood specimen (specimen) 07/19/2017 12:17 PM EDT 07/19/2017 12:17 PM EDT Sriram Contreras MD POINT OF CARE TEST ORDERABLES Performing Organization Address [facility] Co de Phone Number [facility] [place] [address] * Potassium (07/19/2017 8:50 AM EDT) Potassium [...] ORDERABL ES Performing Organization Address [facility] Co de Phone Number [facility] [place] [address] * Folate, serum (07/19/2017 8:50 AM EDT) Folate 16.6 4.8 - 24.2 ng/mL [facility] Blood specimen (specimen) 07/19/2017 8:50 AM EDT 07/19/2017 9:11 AM EDT Narrative Resulting Agency Comment Spec In Lab Sriram Contreras MD CHEMISTRY ORDERABL ES Performing Organization Address [facility] Co de Phone Number [facility] [place] [address] * Vitamin B12 (07/19/2017 8:50 AM EDT) Vitamin B12 468 207 - 974 pg/mL [facility] Blood specimen (specimen) 07/19/2017 8:50 AM EDT 07/19/2017 9:11 AM EDT Narrative Resulting Agency Comment Spec In Lab Sriram Contreras MD CHEMISTRY ORDERABL ES Performing Organization Address [facility] Phone Number [facility] [place] [address] * (ABNORMAL) TSH (07/19/2017 8:50 AM EDT) Thyroid Stimulating Hormone 6.80(H) 0.27 - 4.20 mlU/ML [facility] Blood specimen (specimen) 07/19/2017 8:50 AM EDT 07/19/2017 9:11 AM EDT Narrative Resulting Agency Comment Spec In Lab Sriram Contreras MD CHEMISTRY ORDERABL ES Performing Organization Address [facility] Co de Phone Number [facility] [place] [address] * Urine Hold (07/19/2017 8:07 AM EDT) Hold, Urine Sample in lab. [facility] Urine specimen (specimen) Urine / Unknown 07/19/2017 8:07 AM EDT 07/19/2017 8:35 AM EDT Sriram Contreras MD URINE ORDERABLES Performing Organization Address City/[facility]/ZIP Co de Phone Number [facility] [place] [address] * (ABNORMAL) Urinalysis with reflex Culture (07/19/2017 8:07 AM EDT) Glucose, Urine Dipstick Negative Negative mg/dL [facility] Protein, Urine Dipstick 30(A) Negative mg/dL [facility] Bilirubin, Urine Dipstick Negative Negative mg/dL [facility] Comment: Clinical correlation required for positive Urine Bilirubin results as false positive may occur with some drugs and drug related products. If a false positive is suspected a serum total bilirubin should be considered if clinically indicated. Urobilinogen, Urine Dipstick >=4.0(A) Normal mg/dL [facility] pH, Urn (dipstick) 7.0 5.0 - 8.0 [facility] Blood, Urine Dipstick Moderate(A) Negative mg/dL [facility] Ketone, Urine Dipstick Negative Negative mg/dL [facility] Nitrite, Urine Dipstick Negative Negative [facility] Leukocytes, Urine Dipstick Trace(A) Negative [facility] Appearance, Urine Dipstick Clear Clear [facility] Specific [place] Urine Automated 1.025 1.002 - 1.030 [facility] Color, Urine Dipstick Yellow Yellow [facility] RBC, Urine 161(H) 0 - 3 /HPF [facility] WBC, Urine 1 0 - 3 /HPF [facility] Reflex to Culture No [facility] Urine specimen obtained via indwelling urinary catheter (specimen) 07/19/2017 8:07 AM EDT 07/19/2017 8:34 AM EDT Narrative Resulting Agency Comment Spec In Lab Sriram Contreras MD URINE ORDERABLES [facility] [place] [address] * POCT Glucose (07/19/2017 7:42 AM EDT) Glucose, POC 99 65 - 199 mg/dL [facility] Comment: Supplemental ranges: <140 mg/dL before meals <180 mg/dL all other times of the day Blood specimen (specimen) 07/19/2017 7:42 AM EDT 07/19/2017 7:42 AM EDT Sriram Contreras MD POINT OF CARE TEST ORDERABLES Performing Organization Address City/State/[facility] Co de Phone Number [facility] [place] [address] * POCT Glucose (07/19/2017 4:11 AM EDT) Glucose, POC 93 65 - 199 mg/dL [facility] Comment: Supplemental ranges: <140 mg/dL before meals <180 mg/dL all other times of the day Blood specimen (specimen) 07/19/2017 4:11 AM EDT 07/19/2017 4:11 AM EDT Sriram Contreras MD POINT OF CARE TEST ORDERABLES Performing Organization Address City/[facility] Co de Phone Number [facility] [place] [address] * (ABNORMAL) Differential, Automated (07/19/2017 2:30 AM EDT) Pathologist [facility] Neutrophil % 77.9 % [facility] Neutrophil Absolute 9.99(H) 1.70 - 6.10 x10(3)/mc L [facility] Lymph % 9.8 % [facility] Lymphocytes Abs 1.2 0.9 - 3.2 x10(3)/mc L [facility] Monocyte % 11.5 % [facility] Monocyte Abs 1.5(H) 0.3 - 0.9 x10(3)/mc L [facility] Eos % 0.1 % [facility] Eosinophils Abs 0.0 0.0 - 0.4 x10(3)/ L [facility] Basophil % 0.2 % [facility] Baso Absolute 0.0 0.0 - 0.1 x10(3)/[facility] Immature Gran % 0.50 % [facility] Comment: Immature granulocytes(IG's)percentage and absolute count will include metamyelocytes, myelocytes, and promyelocytes. Blood smears from CBCs yielding IG's will be scanned manually for concordance. If this scan disagrees with the automated IG or if promyelocytes are noted, a manual differential will be performed. Immature Gran Absolute 0.07(H) 0.00 - 0.04 x10(3)/[facility] Blood specimen (specimen) 07/19/2017 2:30 AM EDT 07/19/2017 2:34 AM EDT Narrative Resulting Agency Comment Spec In Lab Sriram Contreras MD HEMATOLOGY ORDERAB LES [facility] [place] [id number] * (ABNORMAL) Hemogram (07/19/2017 2:30 AM EDT) White Blood Cell 12.8(H) 4.0 - 9.5 x10(3)/[facility] Red Blood Cell 4.30(L) 4.58 - 5.54 x10(6)/[facility] Hemoglobin 13.5(L) 13.7 - 16.5 gm/dL [facility] Hematocrit 38.6(L) 40.5 - 48.5 % [facility] Mean Cell Volume 89.8 82.9 - 93.1 fL [facility] Mean Cell Hemoglobin 31.4 27.5 - 32.1 pg [facility] Mean Cell Hemoglobin Concentration 35.0 32.0 - 35.7 gm/dL [facility] Platelet 176 145 - 357 x10(3)/mc L [facility] RDW Standard Deviation 45.1(H) 36.0 - 45.0 fL [facility] RDW coefficient of variation 13.9(H) 11.4 - 13.8 % [facility] Mean Platelet Volume 9.8 7.6 - 12.9 fL [facility] NRBC% auto 0.0 % [facility] NRBC Absolute 0.000 0.000 - 0.000 x10(3)/mc L [facility] Blood specimen (specimen) 07/19/2017 2:30 AM EDT 07/19/2017 2:34 AM EDT Narrative Resulting Agency Comment Spec In Lab Sriram Contreras MD HEMATOLOGY ORDERAB LES Performing Organization Address City/State/[facility] Co de Phone Number [facility] [place] [address] * (ABNORMAL) Basic Metabolic Panel (non-fasting) (07/19/2017 2:30 AM EDT) Glucose 102 65 - 199 mg/dL [facility] Comment:Diabetes: >=200 mg/d L plus symptoms Blood Urea Nitrogen 23(H) 10 - 20 mg/dL [facility] - 107 mmol/L [facility] Carbon Dioxide 23 22 - 31 mmol/L [facility] Anion Gap 15 5 - 15 mmol/L [facility] Calcium 8.5 8.5 - 10.5 mg/dL [facility] Est Glomerular Filtration Rate [...] the following links into your internet browser. [email or web address] Blood specimen (specimen) 07/19/2017 2:30 AM EDT 07/19/2017 2:34 AM EDT Narrative Resulting Agency Comment Spec In Lab Sriram Contreras MD CHEMISTRY ORDERABL ES Performing Organization Address [facility] Co de Phone Number [facility] [place] [address] * (ABNORMAL) Prealbumin (07/19/2017 2:30 AM EDT) Prealbumin 17(L) 20 - 40 mg/dL [facility] Comment: Prealbumin levels are generally lower in the pediatric population; adult concentrations are usually attained near puberty. Blood specimen (specimen) 07/19/2017 2:30 AM EDT 07/19/2017 2:34 AM EDT Narrative Resulting Agency Comment Spec In Lab Sriram Contreras MD CHEMISTRY ORDERABL ES Performing Organization Address [facility] Co de Phone Number [facility] [place] [address] * (ABNORMAL) BLOOD GAS 2 ARTERIAL (07/18/2017 11:53 PM EDT) pH, Arterial 7.50(H) 7.35 - 7.45 [facility] PCO2, Arterial 32(L) 35 - 45 mmHg [facility] PO2, Arterial 61(L) 85 - 104 mmHg [facility] Bicarbonate, Arterial 24.5 20.0 - 26.0 mmol/L [facility] [place] Excess, Arterial 1.3 -3.0 - 3.0 mmol/L [facility] Hgb Blood Gas 14.1 13.7 - 16.5 gm/dL [facility] Oxyhemoglobin, Arterial 90.9(L) 94.0 - 97.0 % [facility] Carboxyhemoglob in, Arterial 0.3 % [facility] Comment: Nonsmokers: 0.5-1.5% COHB Smokers: Variable, but usually less than 10% Toxic: 20-30% COHB Lethal: Greater than 60% COHB Methemoglobin, Arterial 0.7 <=1.5 % [facility] Na Whole Blood 144 [...] [facility] FIO2 Art 45 % [facility] PF Ratio Art 136 [facility] Blood specimen (specimen) 07/18/2017 11:53 PM EDT 07/18/2017 11:53 PM EDT Sriram Contreras MD POINT OF CARE TEST ORDERABLES Performing Organization Address City/[facility]/ZIP Co de Phone Number [facility] [place] [address] * POCT Glucose (07/18/2017 11:49 PM EDT) Glucose, POC 102 65 - 199 mg/dL [facility] Comment: Supplemental ranges: <140 mg/dL before meals <180 mg/dL all other times of the day Blood specimen (specimen) 07/18/2017 11:49 PM EDT 07/18/2017 11:49 PM EDT Sriram Contreras MD POINT OF CARE TEST ORDERABLES Performing Organization Address [facility] Co de Phone Number [facility] [place] [address] * POCT Glucose (07/18/2017 8:44 PM EDT) Glucose, POC 108 65 - 199 mg/dL [facility] Comment: Supplemental ranges: <140 mg/dL before meals <180 mg/dL all other times of the day Blood specimen (specimen) 07/18/2017 8:44 PM EDT 07/18/2017 8:44 PM EDT Sriram Contreras MD POINT OF CARE TEST ORDERABLES Performing Organization Address City/[facility]/ZIP Co de Phone Number [facility] [place] [address] * (ABNORMAL) BLOOD GAS 2 ARTERIAL (07/18/2017 5:22 PM EDT) pH, Arterial 7.54(H) 7.35 - 7.45 [facility] PCO2, Arterial 31(L) 35 - 45 mmHg [facility] PO2, Arterial 55(L) 85 - 104 mmHg [facility] Bicarbonate, Arterial 25.9 20.0 - 26.0 mmol/L [facility] Base Excess, Arterial 3.3(H) -3.0 - 3.0 mmol/L [facility] Hgb Blood Gas 14.2 13.7 - 16.5 gm/dL [facility] Oxyhemoglobin, Arterial 90.3(L) 94.0 - 97.0 % [facility] Carboxyhemoglob in, Arterial 0.3 % [facility] Comment: Nonsmokers: 0.5-1.5% COHB Smokers: Variable, but usually less than 10% Toxic: 20-30% COHB Lethal: Greater than 60% COHB Methemoglobin, Arterial 0.5 <=1.5 % [facility] Na Whole Blood 144 [...] [facility] FIO2 Art 40 % [facility] PF Ratio Art 138 [facility] Blood specimen (specimen) 07/18/2017 5:22 PM EDT 07/18/2017 5:22 PM EDT Sriram Contreras MD POINT OF CARE TEST ORDERABLES [facility] [place] [address] * POCT Glucose (07/18/2017 3:42 PM EDT) Glucose, POC 119 65 - 199 mg/dL [facility] Comment: Supplemental ranges: <140 mg/dL before meals <180 mg/dL all other times of the day Blood specimen (specimen) 07/18/2017 3:42 PM EDT 07/18/2017 3:42 PM EDT Sriram Contreras MD POINT OF CARE TEST ORDERABLES Performing Organization Address City/[facility] Co de Phone Number [facility] [place] [address] * POCT Glucose (07/18/2017 1:05 PM EDT) Glucose, POC 118 65 - 199 mg/dL [facility] Comment: Supplemental ranges: <140 mg/dL before meals <180 mg/dL all other times of the day Blood specimen (specimen) 07/18/2017 1:05 PM EDT 07/18/2017 1:05 PM EDT Sriram Contreras MD POINT OF CARE TEST ORDERABLES Performing Organization Address City/[facility] Co de Phone Number [facility] [place] [address] * (ABNORMAL) BLOOD GAS 2 ARTERIAL (07/18/2017 11:47 AM EDT) pH, Arterial 7.51(H) 7.35 - 7.45 [facility] PCO2, Arterial 33(L) 35 - 45 mmHg [facility] PO2, Arterial 94 85 - 104 mmHg [facility] Bicarbonate, Arterial 25.1 20.0 - 26.0 mmol/L [facility] Base Excess, Arterial 2.0 -3.0 - 3.0 mmol/L [facility] Hgb Blood Gas 14.4 13.7 - 16.5 gm/dL [facility] Oxyhemoglobin, Arterial 96.1 94.0 - 97.0 % [facility] Carboxyhemoglob in, Arterial 0.3 % [facility] Comment: Nonsmokers: 0.5-1.5% COHB Smokers: Variable, but usually less than 10% Toxic: 20-30% COHB Lethal: Greater than 60% COHB Methemoglobin, Arterial 0.6 <=1.5 % [facility] Na Whole Blood 141 [...] [facility] FIO2 Art 50 % [facility] PF Ratio Art 188 [facility] Blood specimen (specimen) 07/18/2017 11:47 AM EDT 07/18/2017 11:47 AM EDT Sriram Contreras MD POINT OF CARE TEST ORDERABLES Performing Organization Address City/State/[facility] Co de Phone Number [facility] [place] [address] * (ABNORMAL) BLOOD GAS 2 ARTERIAL (07/18/2017 7:56 AM EDT) pH, Arterial 7.50(H) 7.35 - 7.45 [facility] PCO2, Arterial 31(L) 35 - 45 mmHg [facility] PO2, Arterial 82(L) 85 - 104 mmHg [facility] Bicarbonate, Arterial 24.2 20.0 - 26.0 mmol/L [facility] Base Excess, Arterial 1.0 -3.0 - 3.0 mmol/L [facility] Hgb Blood Gas 13.4(L) 13.7 - 16.5 gm/dL [facility] Oxyhemoglobin, Arterial 95.3 94.0 - 97.0 % [facility] Carboxyhemoglob in, Arterial 0.3 % [facility] Comment: Nonsmokers: 0.5-1.5% COHB Smokers: Variable, but usually less than 10% Toxic: 20-30% COHB Lethal: Greater than 60% COHB Methemoglobin, Arterial 0.5 <=1.5 % [facility] Na Whole Blood 143 [...] [facility] FIO2 Art 60 % [facility] PF Ratio Art 137 [facility] Blood specimen (specimen) 07/18/2017 7:56 AM EDT 07/18/2017 7:56 AM EDT Sriram Contreras MD POINT OF CARE TEST ORDERABLES [facility] [place] [address] * (ABNORMAL) BLOOD GAS 2 ARTERIAL (07/18/2017 3:55 AM EDT) pH, Arterial 7.51(H) 7.35 - 7.45 [facility] PCO2, Arterial 34(L) 35 - 45 mmHg [facility] PO2, Arterial 95 85 - 104 mmHg [facility] Bicarbonate, Arterial 26.4(H) 20.0 - 26.0 mmol/L [facility] Base Excess, Arterial 3.4(H) -3.0 - 3.0 mmol/L [facility] Hgb Blood Gas 14.2 13.7 - 16.5 gm/dL [facility] Oxyhemoglobin, Arterial 96.4 94.0 - 97.0 % [facility] Carboxyhemoglob in, Arterial 0.5 % [facility] Comment: Nonsmokers: 0.5-1.5% COHB Smokers: Variable, but usually less than 10% Toxic: 20-30% COHB Lethal: Greater than 60% COHB Methemoglobin, Arterial 0.6 <=1.5 % [facility] Na Whole Blood 142 [...] [facility] FIO2 Art 70 % [facility] PF Ratio Art 136 [facility] Blood specimen (specimen) 07/18/2017 3:55 AM EDT 07/18/2017 3:55 AM EDT Sriram Contreras MD POINT OF CARE TEST ORDERABLES Performing Organization Address [facility] de Phone Number [facility] [place] [address] * (ABNORMAL) POCT Glucose (07/18/2017 3:42 AM EDT) Glucose, POC 205(H) 65 - 199 mg/dL [facility] Comment: Supplemental ranges: <140 mg/dL before meals <180 mg/dL all other times of the day Blood specimen (specimen) 07/18/2017 3:42 AM EDT 07/18/2017 3:42 AM EDT Sriram Contreras MD POINT OF CARE TEST ORDERABLES Performing Organization Address [facility] Phone Number [facility] [place] [address] * (ABNORMAL) Magnesium (07/18/2017 2:20 AM EDT) [facility] Magnesium 1.09(H) 0.69 - 1.07 mmol/L [facility] Blood specimen (specimen) Venous Draw / Unknown 07/18/2017 2:20 AM EDT 07/18/2017 2:31 AM EDT Narrative Resulting Agency Comment Spec In Lab Sriram Contreras MD CHEMISTRY ORDERABL ES Performing Organization Address [facility] de Phone Number [facility] [place] [address] * (ABNORMAL) Differential, Automated (07/18/2017 2:20 AM EDT) Neutrophil % 86.8 % [facility] Neutrophil Absolute 9.28(H) 1.70 - 6.10 x10(3)/mc L [facility] Lymph % 5.8 % [facility] Lymphocytes Abs 0.6(L) 0.9 - 3.2 x10(3)/mc L [facility] Monocyte % 6.5 % [facility] Monocyte Abs 0.7 0.3 - 0.9 x10(3)/[facility] Eos % 0.0 % [facility] Eosinophils Abs 0.0 0.0 - 0.4 x10(3)/[facility] Basophil % 0.2 % [facility] Baso Absolute 0.0 0.0 - 0.1 x10(3)/[facility] Immature Gran % 0.70 % [facility] Comment: Immature granulocytes(IG's)percentage and absolute count will include metamyelocytes, myelocytes, and promyelocytes. Blood smears from CBCs yielding IG's will be scanned manually for concordance. If this scan disagrees with the automated IG or if promyelocytes are noted, a manual differential will be performed. Immature Gran Absolute 0.08(H) 0.00 - 0.04 x10(3)/[facility] Blood specimen (specimen) 07/18/2017 2:20 AM EDT 07/18/2017 2:28 AM EDT Narrative Resulting Agency Comment Spec In Lab Sriram Contreras MD HEMATOLOGY ORDERAB LES Performing Organization Address City/State/[facility] Co de Phone Number [facility] [place] [address] * (ABNORMAL) Hemogram (07/18/2017 2:20 AM EDT) White Blood Cell 10.7(H) 4.0 - 9.5 x10(3)/[facility] Red Blood Cell 4.39(L) 4.58 - 5.54 x10(6)/[facility] Hemoglobin 13.6(L) 13.7 - 16.5 gm/dL [facility] LABORATORY Hematocrit 38.8(L) 40.5 - 48.5 % [facility] Mean Cell Volume 88.4 82.9 - 93.1 fL [facility] Mean Cell Hemoglobin 31.0 27.5 - 32.1 pg [facility] Mean Cell Hemoglobin Concentration 35.1 32.0 - 35.7 gm/dL [facility] Platelet 147 145 - 357 x10(3)/mc L [facility] RDW Standard Deviation 43.4 36.0 - 45.0 [facility] LABORATORY RDW coefficient of variation 13.3 11.4 - 13.8 % [facility] Mean Platelet Volume 10.9 7.6 - 12.9 [facility] LABORATORY NRBC% auto 0.0 % [facility] NRBC Absolute 0.000 0.000 - 0.000 x10(3)/mc L [facility] Blood specimen (specimen) 07/18/2017 2:20 AM EDT 07/18/2017 2:28 AM EDT Narrative Resulting Agency Comment Spec In Lab Sriram Contreras MD HEMATOLOGY ORDERAB LES [facility] [place] [address] * (ABNORMAL) Basic Metabolic Panel (non-fasting) (07/18/2017 2:20 AM EDT) Glucose 181 65 - 199 mg/dL [facility] Comment:Diabetes: >=200 mg/d L plus symptoms Blood Urea Nitrogen 22(H) 10 - 20 mg/dL [facility] - 107 mmol/L [facility] Carbon Dioxide 25 22 - 31 mmol/L [facility] Anion Gap 15 5 - 15 mmol/L [facility] Calcium 8.8 8.5 - 10.5 mg/dL [facility] Est Glomerular Filtration Rate [...] the following links into your internet browser. [email or web address] Blood specimen (specimen) 07/18/2017 2:20 AM EDT 07/18/2017 2:28 AM EDT Narrative Resulting Agency Comment Spec In Lab Sriram Contreras MD CHEMISTRY ORDERABL ES [facility] [place] [address] * (ABNORMAL) BLOOD GAS 2 ARTERIAL (07/17/2017 11:36 PM EDT) pH, Arterial 7.51(H) 7.35 - 7.45 [facility] PCO2, Arterial 32(L) 35 - 45 mmHg [facility] PO2, Arterial 60(L) 85 - 104 mmHg [facility] Bicarbonate, Arterial 25.0 20.0 - 26.0 mmol/L [facility] Base Excess, Arterial 2.0 -3.0 - 3.0 mmol/L [facility] Hgb Blood Gas 14.8 13.7 - 16.5 gm/dL [facility] Oxyhemoglobin, Arterial 92.1(L) 94.0 - 97.0 % [facility] Carboxyhemoglob in, Arterial 0.3 % [facility] Comment: Nonsmokers: 0.5-1.5% COHB Smokers: Variable, but usually less than 10% Toxic: 20-30% COHB Lethal: Greater than 60% COHB Methemoglobin, Arterial 0.5 <=1.5 % [facility] Na Whole Blood 143 [...] [facility] FIO2 Art 60 % [facility] PF Ratio Art 100 [facility] Blood specimen (specimen) 07/17/2017 11:36 PM EDT 07/17/2017 11:36 PM EDT Sriram Contreras MD POINT OF CARE TEST ORDERABLES [facility] [place] [address] * (ABNORMAL) POCT Glucose (07/17/2017 11:34 PM EDT) Glucose, POC 202(H) 65 - 199 mg/dL [facility] Comment: Supplemental ranges: <140 mg/dL before meals <180 mg/dL all other times of the day Blood specimen (specimen) 07/17/2017 11:34 PM EDT 07/17/2017 11:34 PM EDT Sriram Contreras MD POINT OF CARE TEST ORDERABLES Performing Organization Address [facility] de Phone Number [facility] [place] [address] * Magnesium (07/17/2017 10:10 PM EDT) Pathologist [facility] Magnesium 0.87 0.69 - 1.07 mmol/L [facility] Blood specimen (specimen) 07/17/2017 10:10 PM EDT 07/17/2017 10:18 PM EDT Narrative Resulting Agency Comment Spec In Lab Sriram Contreras MD CHEMISTRY ORDERABL ES Performing Organization Address [facility] Phone Number [facility] [place] [address] * (ABNORMAL) BLOOD GAS 2 ARTERIAL (07/17/2017 7:51 PM EDT) pH, Arterial 7.49(H) 7.35 - 7.45 [facility] PCO2, Arterial 36 35 - 45 mmHg [facility] PO2, Arterial 67(L) 85 - 104 mmHg [facility] Bicarbonate, Arterial 26.8(H) 20.0 - 26.0 mmol/L [facility] Base Excess, Arterial 3.4(H) -3.0 - 3.0 mmol/L [facility] Hgb Blood Gas 14.3 13.7 - 16.5 gm/dL [facility] Oxyhemoglobin, Arterial 93.4(L) 94.0 - 97.0 % [facility] Carboxyhemoglob in, Arterial 0.3 % [facility] Comment: Nonsmokers: 0.5-1.5% COHB Smokers: Variable, but usually less than 10% Toxic: 20-30% COHB Lethal: Greater than 60% COHB Methemoglobin, Arterial 0.6 <=1.5 % [facility] Na Whole Blood 143 [...] [facility] FIO2 Art 60 % [facility] PF Ratio Art 112 [facility] Blood specimen (specimen) 07/17/2017 7:51 PM EDT 07/17/2017 7:51 PM EDT Sriram Contreras MD POINT OF CARE TEST ORDERABLES Performing Organization Address [facility] Co de Phone Number [facility] [place] [address] * POCT Glucose (07/17/2017 7:50 PM EDT) Glucose, POC 153 65 - 199 mg/dL [facility] Comment: Supplemental ranges: <140 mg/dL before meals <180 mg/dL all other times of the day Blood specimen (specimen) 07/17/2017 7:50 PM EDT 07/17/2017 7:50 PM EDT Sriram Contreras MD POINT OF CARE TEST ORDERABLES Performing Organization Address City/[facility]/ZIP Co de Phone Number [facility] [place] [address] * (ABNORMAL) BLOOD GAS 2 ARTERIAL (07/17/2017 3:20 PM EDT) pH, Arterial 7.51(H) 7.35 - 7.45 [facility] PCO2, Arterial 31(L) 35 - 45 mmHg [facility] PO2, Arterial 67(L) 85 - 104 mmHg [facility] Bicarbonate, Arterial 24.3 20.0 - 26.0 mmol/L [facility] Base Excess, Arterial 1.3 -3.0 - 3.0 mmol/L [facility] Hgb Blood Gas 14.1 13.7 - 16.5 gm/dL [facility] Oxyhemoglobin, Arterial 93.8(L) 94.0 - 97.0 % [facility] Carboxyhemoglob in, Arterial 0.3 % [facility] Comment: Nonsmokers: 0.5-1.5% COHB Smokers: Variable, but usually less than 10% Toxic: 20-30% COHB Lethal: Greater than 60% COHB Methemoglobin, Arterial 0.5 <=1.5 % [facility] Na Whole Blood 141 [...] [facility] FIO2 Art 50 % [facility] PF Ratio Art 134 [facility] Blood specimen (specimen) 07/17/2017 3:20 PM EDT 07/17/2017 3:20 PM EDT Sriram Contreras MD POINT OF CARE TEST ORDERABLES [facility] [place] [address] * (ABNORMAL) BLOOD GAS 2 ARTERIAL (07/17/2017 12:50 PM EDT) pH, Arterial 7.51(H) 7.35 - 7.45 [facility] PCO2, Arterial 30(L) 35 - 45 mmHg [facility] PO2, Arterial 52(L) 85 - 104 mmHg [facility] Bicarbonate, Arterial 23.7 20.0 - 26.0 mmol/L [facility] Base Excess, Arterial 0.8 -3.0 - 3.0 mmol/L [facility] Hgb Blood Gas 14.0 13.7 - 16.5 gm/dL [facility] Oxyhemoglobin, Arterial 89.4(L) 94.0 - 97.0 % [facility] Carboxyhemoglob in, Arterial 0.3 % [facility] Comment: Nonsmokers: 0.5-1.5% COHB Smokers: Variable, but usually less than 10% Toxic: 20-30% COHB Lethal: Greater than 60% COHB Methemoglobin, Arterial 0.5 <=1.5 % [facility] Na Whole Blood 140 [...] [facility] FIO2 Art 50 % [facility] PF Ratio Art 104 [facility] Blood specimen (specimen) 07/17/2017 12:50 PM EDT 07/17/2017 12:50 PM EDT Sriram Contreras MD POINT OF CARE TEST ORDERABLES [facility] [place] [address] * XR Chest PA or AP 1 [...] EDT) pH, Arterial 7.48(H) 7.35 - 7.45 [facility] PCO2, Arterial 34(L) 35 - 45 mmHg [facility] PO2, Arterial 55(L) 85 - 104 mmHg [facility] Bicarbonate, Arterial 24.7 20.0 - 26.0 mmol/L [facility] Base Excess, Arterial 1.2 -3.0 - 3.0 mmol/L [facility] Hgb Blood Gas 14.1 13.7 - 16.5 gm/dL [facility] Oxyhemoglobin, Arterial 90.4(L) 94.0 - 97.0 % [facility] Carboxyhemoglob in, Arterial 0.1 % [facility] Comment: Nonsmokers: 0.5-1.5% COHB Smokers: Variable, but usually less than 10% Toxic: 20-30% COHB Lethal: Greater than 60% COHB Methemoglobin, Arterial 0.7 <=1.5 % [facility] Na Whole Blood 141 [...] [facility] FIO2 Art 40 % [facility] PF Ratio Art 138 [facility] Blood specimen (specimen) 07/17/2017 11:54 AM EDT 07/17/2017 11:54 AM EDT Sriram Contreras MD POINT OF CARE TEST ORDERABLES [facility] [place] [address] * Cardiac Enzymes (07/17/2017 5:42 AM EDT) [...] meets the diagnosis for a myocardial infarction (MA). Detection of a rise and/or fall of cTnT, with at least one value greater than the 99th percentile (> or = 0.01) and with at least one of the following ?? Symptoms of ischemia ?? New or presumed new significant QU-[id number] wave (ST-T) changes or new left bundle [...] additional sample may be indicated. Reference: Third [place] Definition of Myocardial Infarction. Journal of the [employer] [place] [employer] 2012;60:1581-98 Creatine Kinase 47 0 - 200 unit/L [facility] Blood specimen (specimen) 07/17/2017 5:42 AM EDT 07/17/2017 5:42 AM EDT Narrative Resulting Agency Comment Spec In Lab Sriram Contreras MD CHEMISTRY ORDERABL ES [facility] [place] [address] * (ABNORMAL) Differential, Automated (07/17/2017 12:30 AM EDT) Neutrophil % 90.5 % [facility] Neutrophil Absolute 8.62(H) 1.70 - 6.10 x10(3)/mc L [facility] Lymph % 3.7 % [facility] Lymphocytes Abs 0.4(L) 0.9 - 3.2 x10(3)/mc L [facility] Monocyte % 4.9 % [facility] Monocyte Abs 0.5 0.3 - 0.9 x10(3)/mc L [facility] Eos % 0.0 % [facility] Eosinophils Abs 0.0 0.0 - 0.4 x10(3)/mc L [facility] Basophil % 0.1 % [facility] Baso Absolute 0.0 0.0 - 0.1 x10(3)/mc L [facility] Immature Gran % 0.80 % [facility] Comment: Immature granulocytes(IG's)percentage and absolute count will include metamyelocytes, myelocytes, and promyelocytes. Blood smears from CBCs yielding IG's will be scanned manually for concordance. If this scan disagrees with the automated IG or if promyelocytes are noted, a manual differential will be performed. Immature Gran Absolute 0.08(H) 0.00 - 0.04 x10(3)/mc L [facility] Blood specimen (specimen) 07/17/2017 12:30 AM EDT 07/17/2017 1:13 AM EDT Narrative Resulting Agency Comment Spec In Lab Sriram Contreras MD HEMATOLOGY ORDERAB LES [facility] [place] [address] * (ABNORMAL) Hemogram (07/17/2017 12:30 AM EDT) White Blood Cell 9.5 4.0 - 9.5 x10(3)/mc L [facility] Red Blood Cell 3.98(L) 4.58 - 5.54 x10(6)/mc L [facility] Hemoglobin 12.4(L) 13.7 - 16.5 gm/dL [facility] Hematocrit 36.7(L) 40.5 - 48.5 % [facility] Mean Cell Volume 92.2 82.9 - 93.1 fL [facility] Mean Cell Hemoglobin 31.2 27.5 - 32.1 pg [facility] Mean Cell Hemoglobin Concentration 33.8 32.0 - 35.7 gm/dL [facility] Platelet 133(L) 145 - 357 x10(3)/mc L [facility] RDW Standard Deviation 47.7(H) 36.0 - 45.0 fL [facility] RDW coefficient of variation 13.8 11.4 - 13.8 % [facility] Mean Platelet Volume 10.9 7.6 - 12.9 [facility] NRBC% auto 0.0 % [facility] NRBC Absolute 0.000 0.000 - 0.000 x10(3)/mc L [facility] Blood specimen (specimen) 07/17/2017 12:30 AM EDT 07/17/2017 1:13 AM EDT Narrative Resulting Agency Comment Spec In Lab Sriram Contreras MD HEMATOLOGY ORDERAB LES [facility] [place] [address] * (ABNORMAL) Basic Metabolic Panel (non-fasting) (07/17/2017 12:30 AM EDT) Glucose 246(H) 65 - 199 mg/dL [facility] Comment:Diabetes: >=200 mg/d L plus symptoms Blood Urea Nitrogen 17 10 - 20 mg/dL [facility] - 107 mmol/L [facility] Carbon Dioxide 21(L) 22 - 31 mmol/L [facility] Anion Gap 13 5 - 15 mmol/L [facility] Calcium 8.3(L) 8.5 - 10.5 mg/dL [facility] Est Glomerular Filtration Rate [...] the following links into your internet browser. [email or web address] Blood specimen (specimen) 07/17/2017 12:30 AM EDT 07/17/2017 1:13 AM EDT Narrative Resulting Agency Comment Spec In Lab Sriram Contreras MD CHEMISTRY ORDERABL ES [facility] [place] [address] * Cardiac Enzymes (07/17/2017 12:30 AM EDT) [...] meets the diagnosis for a myocardial infarction (MA). Detection of a rise and/or fall of cTnT, with at least one value greater than the 99th percentile (> or = 0.01) and with at least one of the following ?? Symptoms of ischemia ?? New or presumed new significant JF-[id number]-[id number] wave (ST-T) changes or new left bundle [...] additional sample may be indicated. Reference: Third [place] Definition of Myocardial Infarction. Journal of the [place] [employer] 2012;60:1581-98 Creatine Kinase 60 0 - 200 unit/L [facility] Blood specimen (specimen) 07/17/2017 12:30 AM EDT 07/17/2017 1:13 AM EDT Narrative Resulting Agency Comment Spec In Lab Sriram Contreras MD CHEMISTRY ORDERABL ES [facility] [address] * XR Chest PA or AP 1 [...] meets the diagnosis for a myocardial infarction (MA). Detection of a rise and/or fall of cTnT, with at least one value greater than the 99th percentile (> or = 0.01) and with at least one of the following ?? Symptoms of ischemia ?? New or presumed new significant AJ-[id number]-G wave (ST-T) changes or new left bundle [...] additional sample may be indicated. Reference: Third [place] Definition of Myocardial Infarction. Journal of the [employer] 2012;60:1581-98 Creatine Kinase 63 0 - 200 unit/L [facility] Blood specimen (specimen) 07/16/2017 5:10 PM EDT 07/16/2017 5:20 PM EDT Narrative Resulting Agency Comment Spec In Lab Sriram Contreras MD CHEMISTRY ORDERABL ES [facility] [place] [address] * EKG 12 Lead (07/16/2017 4:46 PM EDT) Ventricular rate 70 BPM MUSE SYSTEM Atrial Rate 70 BPM MUSE SYSTEM P-R Interval 208 ms MUSE SYSTEM QRS Duration 96 ms MUSE SYSTEM Q-T Interval 404 ms MUSE SYSTEM QTC Calculated (Bezet) 436 ms MUSE SYSTEM Calculated P Hanna 57 degrees MUSE SYSTEM Calculated R Hanna 54 degrees MUSE SYSTEM Calculated T Hanna 50 degrees MUSE SYSTEM INTERPRETATION Sinus rhythm with frequent Premature ventricular complexes in a pattern of bigeminy Otherwise normal ECG Confirmed by MD Bello Douglas ([id number]) on 07/17/2017 2:06:02 PM MUSE SYSTEM 07/16/2017 4:46 PM EDT 07/17/2017 2:06 PM EDT Sriram Contreras MD ECG ORDERABLES MUSE SYSTEM * Magnesium (07/16/2017 4:00 AM EDT) Magnesium 0.82 0.69 - 1.07 mmol/L [facility] Blood specimen (specimen) Venous Draw / Unknown 07/16/2017 4:00 AM EDT 07/16/2017 4:18 AM EDT Narrative Resulting Agency Comment Spec In Lab Sriram Contreras MD CHEMISTRY ORDERABL ES Performing Organization Address City/[facility] Co de Phone Number [facility] [place] [address] * (ABNORMAL) Differential, Automated (07/16/2017 4:00 AM EDT) Neutrophil % 81.3 % [facility] Neutrophil Absolute 8.31(H) 1.70 - 6.10 x10(3)/mc L [facility] Lymph % 10.7 % [facility] Lymphocytes Abs 1.1 0.9 - 3.2 x10(3)/mc L [facility] Monocyte % 6.8 % [facility] Monocyte Abs 0.7 0.3 - 0.9 x10(3)/mc L [facility] Eos % 0.3 % [facility] Eosinophils Abs 0.0 0.0 - 0.4 x10(3)/mc L [facility] Basophil % 0.4 % [facility] Baso Absolute 0.0 0.0 - 0.1 x10(3)/mc L [facility] Immature Gran % 0.50 % [facility] Comment: Immature granulocytes(IG's)percentage and absolute count will include metamyelocytes, myelocytes, and promyelocytes. Blood smears from CBCs yielding IG's will be scanned manually for concordance. If this scan disagrees with the automated IG or if promyelocytes are noted, a manual differential will be performed. Immature Gran Absolute 0.05(H) 0.00 - 0.04 x10(3)/mc L [facility] Blood specimen (specimen) 07/16/2017 4:00 AM EDT 07/16/2017 4:16 AM EDT Narrative Resulting Agency Comment Spec In Lab Sriram Contreras MD HEMATOLOGY ORDERAB LES [facility] [place] [address] * (ABNORMAL) Hemogram (07/16/2017 4:00 AM EDT) White Blood Cell 10.2(H) 4.0 - 9.5 x10(3)/ L [facility] Red Blood Cell 3.95(L) 4.58 - 5.54 x10(6)/mc L [facility] Hemoglobin 12.4(L) 13.7 - 16.5 gm/dL [facility] Hematocrit 37.2(L) 40.5 - 48.5 % [facility] Mean Cell Volume 94.2(H) 82.9 - 93.1 fL [facility] Mean Cell Hemoglobin 31.4 27.5 - 32.1 pg [facility] Mean Cell Hemoglobin Concentration 33.3 32.0 - 35.7 gm/dL [facility] Platelet 126(L) 145 - 357 x10(3)/mc L [facility] RDW Standard Deviation 50.0(H) 36.0 - 45.0 fL [facility] RDW coefficient of variation 14.3(H) 11.4 - 13.8 % [facility] Mean Platelet Volume 10.3 7.6 - 12.9 fL [facility] NRBC% auto 0.0 % [facility] NRBC Absolute 0.000 0.000 - 0.000 x10(3)/mc L [facility] Blood specimen (specimen) 07/16/2017 4:00 AM EDT 07/16/2017 4:16 AM EDT Narrative Resulting Agency Comment Spec In Lab Sriram Contreras MD HEMATOLOGY ORDERAB LES [facility] [place] [address] * (ABNORMAL) Basic Metabolic Panel (non-fasting) (07/16/2017 4:00 AM EDT) Glucose 131 65 - 199 mg/dL [facility] Comment:Diabetes: >=200 mg/d L plus symptoms Blood Urea Nitrogen 16 10 - 20 mg/dL [facility] - 107 mmol/L [facility] Carbon Dioxide 21(L) 22 - 31 mmol/L [facility] Anion Gap 17(H) 5 - 15 mmol/L [facility] Calcium 8.1(L) 8.5 - 10.5 mg/dL [facility] Est Glomerular Filtration Rate [...] the following links into your internet browser. [email or web address] Blood specimen (specimen) 07/16/2017 4:00 AM EDT 07/16/2017 4:16 AM EDT Narrative Resulting Agency Comment Spec In Lab Sriram Contreras MD CHEMISTRY ORDERABL ES Performing Organization Address [facility] Co de Phone Number [facility] [place] [address] * POCT Glucose (07/15/2017 12:26 PM EDT) Glucose, POC 75 65 - 199 mg/dL [facility] Comment: Supplemental ranges: <140 mg/dL before meals <180 mg/dL all other times of the day Blood specimen (specimen) 07/15/2017 12:26 PM EDT 07/15/2017 12:26 PM EDT Sriram Contreras MD POINT OF CARE TEST ORDERABLES Performing Organization Address [facility] Co de Phone Number [facility] [place] [address] * (ABNORMAL) Basic Metabolic Panel (non-fasting) (07/15/2017 10:20 AM EDT) Glucose 111 65 - 199 mg/dL [facility] Comment:Diabetes: >=200 mg/d L plus symptoms Blood Urea Nitrogen 19 10 - 20 mg/dL [facility] - 107 mmol/L [facility] Carbon Dioxide 22 22 - 31 mmol/L [facility] Anion Gap 14 5 - 15 mmol/L [facility] Calcium 8.2(L) 8.5 - 10.5 mg/dL [facility] Est Glomerular Filtration Rate [...] the following links into your internet browser. [email or web address] Blood specimen (specimen) 07/15/2017 10:20 AM EDT 07/15/2017 10:24 AM EDT Narrative Resulting Agency Comment Spec In Lab Sriram Contreras MD CHEMISTRY ORDERABL ES [facility] [place] [address] * POCT Glucose (07/15/2017 8:30 AM EDT) Glucose, POC 111 65 - 199 mg/dL [facility] Comment: Supplemental ranges: <140 mg/dL before meals <180 mg/dL all other times of the day Blood specimen (specimen) 07/15/2017 8:30 AM EDT 07/15/2017 8:30 AM EDT Sriram Contreras MD POINT OF CARE TEST ORDERABLES [facility] [place] [address] * (ABNORMAL) BLOOD GAS 2 ARTERIAL (07/15/2017 4:17 AM EDT) pH, Arterial 7.38 7.35 - 7.45 [facility] PCO2, Arterial 42 35 - 45 mmHg [facility] PO2, Arterial 61(L) 85 - 104 mmHg [facility] Bicarbonate, Arterial 24.6 20.0 - 26.0 mmol/L [facility] Base Excess, Arterial -0.4 -3.0 - 3.0 mmol/L [facility] Hgb Blood Gas 14.0 13.7 - 16.5 gm/dL [facility] Oxyhemoglobin, Arterial 90.6(L) 94.0 - 97.0 % [facility] Carboxyhemoglob in, Arterial 0.2 % [facility] Comment: Nonsmokers: 0.5-1.5% COHB Smokers: Variable, but usually less than 10% Toxic: 20-30% COHB Lethal: Greater than 60% COHB Methemoglobin, Arterial 0.5 <=1.5 % [facility] Na Whole Blood 139 [facility] FIO2 Art 35 % [facility] PF Ratio Art 174 [facility] Blood specimen (specimen) 07/15/2017 4:17 AM EDT 07/15/2017 4:17 AM EDT Sriram Contreras MD POINT OF CARE TEST ORDERABLES Performing Organization Address City/State/[facility] Co de Phone Number [facility] [place] [address] * (ABNORMAL) Differential, Automated (07/15/2017 4:15 AM EDT) Neutrophil % 84.7 % [facility] Neutrophil Absolute 12.39(H) 1.70 - 6.10 x10(3)/mc L [facility] Lymph % 6.2 % [facility] Lymphocytes Abs 0.9 0.9 - 3.2 x10(3)/mc L [facility] Monocyte % 8.0 % [facility] Monocyte Abs 1.2(H) 0.3 - 0.9 x10(3)/mc L [facility] Eos % 0.0 % [facility] Eosinophils Abs 0.0 0.0 - 0.4 x10(3)/mc L [facility] Basophil % 0.1 % [facility] Baso Absolute 0.0 0.0 - 0.1 x10(3)/mc L [facility] Immature Gran % 1.00 % [facility] Comment: Immature granulocytes(IG's)percentage and absolute count will include metamyelocytes, myelocytes, and promyelocytes. Blood smears from CBCs yielding IG's will be scanned manually for concordance. If this scan disagrees with the automated IG or if promyelocytes are noted, a manual differential will be performed. Immature Gran Absolute 0.14(H) 0.00 - 0.04 x10(3)/mc L [facility] Blood specimen (specimen) 07/15/2017 4:15 AM EDT 07/15/2017 4:28 AM EDT Narrative Resulting Agency Comment Spec In Lab Sriram Contreras MD HEMATOLOGY ORDERAB LES [facility] [place] [address] * (ABNORMAL) Hemogram (07/15/2017 4:15 AM EDT) White Blood Cell 14.6(H) 4.0 - 9.5 x10(3)/mc L [facility] Red Blood Cell 4.16(L) 4.58 - 5.54 x10(6)/mc L [facility] Hemoglobin 13.0(L) 13.7 - 16.5 gm/dL [facility] Hematocrit 38.9(L) 40.5 - 48.5 % [facility] Mean Cell Volume 93.5(H) 82.9 - 93.1 fL [facility] Mean Cell Hemoglobin 31.3 27.5 - 32.1 pg [facility] Mean Cell Hemoglobin Concentration 33.4 32.0 - 35.7 gm/dL [facility] Platelet 135(L) 145 - 357 x10(3)/mc L [facility] RDW Standard Deviation 48.8(H) 36.0 - 45.0 fL [facility] RDW coefficient of variation 14.2(H) 11.4 - 13.8 % [facility] Mean Platelet Volume 10.0 7.6 - 12.9 fL [facility] NRBC% auto 0.0 % [facility] NRBC Absolute 0.000 0.000 - 0.000 x10(3)/mc L [facility] Blood specimen (specimen) 07/15/2017 4:15 AM EDT 07/15/2017 4:28 AM EDT Narrative Resulting Agency Comment Spec In Lab Sriram Contreras MD HEMATOLOGY ORDERAB LES Performing Organization Address [facility] Co de Phone Number [facility] [place] [address] * Potassium (07/14/2017 8:20 PM EDT) Potassium [...] ORDERABL ES Performing Organization Address [facility] Co de Phone Number [facility] [place] [address] * (ABNORMAL) Magnesium (07/14/2017 8:20 PM EDT) Magnesium 1.08(H) 0.69 - 1.07 mmol/L [facility] Blood specimen (specimen) 07/14/2017 8:20 PM EDT 07/14/2017 8:31 PM EDT Narrative Resulting Agency Comment Spec In Lab Sriram Contreras MD CHEMISTRY ORDERABL ES Performing Organization Address [facility] Co de Phone Number [facility] [place] [address] * Magnesium (07/14/2017 4:30 PM EDT) Magnesium 0.86 0.69 - 1.07 mmol/L [facility] Blood specimen (specimen) 07/14/2017 4:30 PM EDT 07/14/2017 4:50 PM EDT Narrative Resulting Agency Comment Spec In Lab Sriram Contreras MD CHEMISTRY ORDERABL ES Performing Organization Address City/[facility]/ZIP Co de Phone Number [facility] [place] [address] * POCT Glucose (07/14/2017 4:26 PM EDT) Glucose, POC 146 65 - 199 mg/dL [facility] Comment: Supplemental ranges: <140 mg/dL before meals <180 mg/dL all other times of the day Blood specimen (specimen) 07/14/2017 4:26 PM EDT 07/14/2017 4:26 PM EDT Sriram Contreras MD POINT OF CARE TEST ORDERABLES Performing Organization Address [facility] Co de Phone Number [facility] [place] [address] * EKG 12 Lead (07/14/2017 12:37 PM EDT) Ventricular rate 67 BPM MUSE SYSTEM Atrial Rate 67 BPM MUSE SYSTEM P-R Interval 216 ms MUSE SYSTEM QRS Duration 100 ms MUSE SYSTEM Q-T Interval 438 ms MUSE SYSTEM QTC Calculated (Bezet) 462 ms MUSE SYSTEM Calculated P Hanna 58 degrees MUSE SYSTEM Calculated R Hanna 56 degrees MUSE SYSTEM Calculated T Hanna 38 degrees MUSE SYSTEM INTERPRETATION Sinus rhythm with 1st degree A-V block Otherwise normal ECG When compared with ECG of 29-MAR-1997 12:50, [place] interval has increased Confirmed by MD Radha, Daryl ([id number]) on 07/14/2017 5:07:22 PM MUSE SYSTEM 07/14/2017 12:3 7 PM EDT 07/14/2017 5:07 PM EDT Sriram Contreras MD ECG ORDERABLES Performing Organization Address City/[facility]/ZIP Co de Phone Number MUSE SYSTEM * POCT Glucose (07/14/2017 12:05 PM EDT) Glucose, POC 147 65 - 199 mg/dL [facility] Comment: Supplemental ranges: <140 mg/dL before meals <180 mg/dL all other times of the day Blood specimen (specimen) 07/14/2017 12:05 PM EDT 07/14/2017 12:05 PM EDT Sriram Contreras MD POINT OF CARE TEST ORDERABLES Performing Organization Address City/[facility] Co de Phone Number [facility] [place] [address] * POCT Glucose (07/14/2017 8:25 AM EDT) Glucose, POC 140 65 - 199 mg/dL [facility] Comment: Supplemental ranges: <140 mg/dL before meals <180 mg/dL all other times of the day Blood specimen (specimen) 07/14/2017 8:25 AM EDT 07/14/2017 8:25 AM EDT Sriram Contreras MD POINT OF CARE TEST ORDERABLES Performing Organization Address [facility] Co de Phone Number [facility] [place] [address] * (ABNORMAL) Differential, Automated (07/14/2017 12:36 AM EDT) [facility] Neutrophil % 90.3 % [facility] Neutrophil Absolute 13.17(H) 1.70 - 6.10 x10(3)/mc L [facility] Lymph % 3.8 % [facility] Lymphocytes Abs 0.6(L) 0.9 - 3.2 x10(3)/mc L [facility] Monocyte % 5.4 % [facility] Monocyte Abs 0.8 0.3 - 0.9 x10(3)/mc L [facility] Eos % 0.0 % [facility] Eosinophils Abs 0.0 0.0 - 0.4 x10(3)/mc L [facility] Basophil % 0.1 % [facility] Baso Absolute 0.0 0.0 - 0.1 x10(3)/ L [facility] Immature Gran % 0.40 % [facility] Comment: Immature granulocytes(IG's)percentage and absolute count will include metamyelocytes, myelocytes, and promyelocytes. Blood smears from CBCs yielding IG's will be scanned manually for concordance. If this scan disagrees with the automated IG or if promyelocytes are noted, a manual differential will be performed. Immature Gran Absolute 0.06(H) 0.00 - 0.04 x10(3)/ L [facility] Blood specimen (specimen) 07/14/2017 12:36 AM EDT 07/14/2017 12:41 AM EDT Narrative Resulting Agency Comment Spec In Lab Sriram Contreras MD HEMATOLOGY ORDERAB LES Performing Organization Address City/State/[facility] Co de Phone Number [facility] [place] [address] * (ABNORMAL) Hemogram (07/14/2017 12:36 AM EDT) White Blood Cell 14.6(H) 4.0 - 9.5 x10(3)/[facility] Red Blood Cell 4.57(L) 4.58 - 5.54 x10(6)/ L [facility] Hemoglobin 14.1 13.7 - 16.5 gm/dL [facility] Hematocrit 42.1 40.5 - 48.5 % [facility] Mean Cell Volume 92.1 82.9 - 93.1 fL [facility] Mean Cell Hemoglobin 30.9 27.5 - 32.1 pg [facility] Mean Cell Hemoglobin Concentration 33.5 32.0 - 35.7 gm/dL [facility] Platelet 157 145 - 357 x10(3)/ L [facility] RDW Standard Deviation 48.6(H) 36.0 - 45.0 fL [facility] RDW coefficient of variation 14.4(H) 11.4 - 13.8 % [facility] Mean Platelet Volume 10.2 7.6 - 12.9 fL [facility] NRBC% auto 0.0 % [facility] NRBC Absolute 0.000 0.000 - 0.000 x10(3)/mc L [facility] Blood specimen (specimen) 07/14/2017 12:36 AM EDT 07/14/2017 12:41 AM EDT Narrative Resulting Agency Comment Spec In Lab Sriram Contreras MD HEMATOLOGY ORDERAB LES Performing Organization Address [facility]/ZIP Co de Phone Number [facility] [place] [address] * (ABNORMAL) Magnesium (07/14/2017 12:36 AM EDT) Magnesium 0.65(L) 0.69 - 1.07 mmol/L [facility] Blood specimen (specimen) 07/14/2017 12:36 AM EDT 07/14/2017 12:41 AM EDT Narrative Resulting Agency Comment Spec In Lab Sriram Contreras MD CHEMISTRY ORDERABL ES Performing Organization Address [facility] Co de Phone Number [facility] [place] [address] * Phosphorus (07/14/2017 12:36 AM EDT) Phosphorus 3.3 2.5 - 4.5 mg/dL [facility] Blood specimen (specimen) 07/14/2017 12:36 AM EDT 07/14/2017 12:41 AM EDT Narrative Resulting Agency Comment Spec In Lab Sriram Contreras MD CHEMISTRY ORDERABL ES Performing Organization Address [facility] Co de Phone Number [facility] [place] [address] * Prealbumin (07/14/2017 12:36 AM EDT) Prealbumin 23 20 - 40 mg/dL [facility] Comment: Prealbumin levels are generally lower in the pediatric population; adult concentrations are usually attained near puberty. Blood specimen (specimen) 07/14/2017 12:36 AM EDT 07/14/2017 12:45 AM EDT Narrative Resulting Agency Comment Spec In Lab Sriram Contreras MD CHEMISTRY ORDERABL ES [facility] [place] [address] * (ABNORMAL) Basic Metabolic Panel (non-fasting) (07/14/2017 12:36 AM EDT) Glucose 161 65 - 199 mg/dL [facility] Comment:Diabetes: >=200 mg/d L plus symptoms Blood Urea Nitrogen 16 10 - 20 mg/dL [facility] - 107 mmol/L [facility] Carbon Dioxide 19(L) 22 - 31 mmol/L [facility] Anion Gap 17(H) 5 - 15 mmol/L [facility] Calcium 7.7(L) 8.5 - 10.5 mg/dL [facility] Est Glomerular Filtration Rate [...] the following links into your internet browser. [email or web address] Blood specimen (specimen) 07/14/2017 12:36 AM EDT 07/14/2017 12:41 AM EDT Narrative Resulting Agency Comment Spec In Lab Sriram Contreras MD CHEMISTRY ORDERABL ES [facility] [place] [address] * (ABNORMAL) Basic Metabolic Panel (non-fasting) (07/13/2017 9:33 PM EDT) Glucose 147 65 - 199 mg/dL [facility] Comment:Diabetes: >=200 mg/d L plus symptoms Blood Urea Nitrogen 17 10 - 20 mg/dL [facility] [...] suggested. Called by: michael, Read back by: _dajuan [email or web address], Date/Time:07/13/17 22:12. Carbon Dioxide 18(L) 22 - 31 mmol/L [facility] Anion Gap Not Calculated 5 - 15 mmol/L [facility] Calcium 7.3(L) 8.5 - 10.5 mg/dL [facility] Est Glomerular Filtration Rate [...] the following links into your internet browser. [email or web address] Blood specimen (specimen) 07/13/2017 9:33 PM EDT 07/13/2017 9:41 PM EDT Narrative Resulting Agency Comment Spec In Lab Sriram Contreras MD CHEMISTRY ORDERABL ES [facility] [place] [address] * XR Chest PA or AP 1 [...] PM EDT 07/13/2017 7:35 PM EDT Narrative [facility] - 07/13/2017 7:35 PM EDT Specimen requisition ordered. ??Separate Pathology report to follow Sriram Contreras MD PATHOLOGY/CYTOLOGY ORDERABLES Performing Organization Address [facility] Co de Phone Number [facility] [place] [address] * Specimen to Pathology (surgical or derm) (07/13/2017 7:05 PM EDT) AP Specimen 07/13/2017 7:05 PM EDT 07/13/2017 7:05 PM EDT Narrative [facility] - 07/13/2017 7:05 PM EDT Specimen requisition ordered. ??Separate Pathology report to follow Sriram Contreras MD PATHOLOGY/CYTOLOGY ORDERABLES Performing Organization Address [facility] [place] [address] * Specimen to Pathology (surgical or derm) (07/13/2017 6:21 PM EDT) AP Specimen 07/13/2017 6:21 PM EDT 07/13/2017 6:21 PM EDT [facility] - 07/13/2017 6:21 PM EDT Specimen requisition ordered. ??Separate Pathology report to follow Sriram Contreras MD PATHOLOGY/CYTOLOGY ORDERABLES Performing Organization Address City/[facility]/[place] [address] * Specimen to Pathology (surgical or derm) (07/13/2017 5:30 PM EDT) AP Specimen 07/13/2017 5:30 PM EDT 07/13/2017 5:30 PM EDT Narrative [facility] - 07/13/2017 5:30 PM EDT Specimen requisition ordered. ??Separate Pathology report to follow Sriram Contreras MD PATHOLOGY/CYTOLOGY ORDERABLES Performing Organization Address City/[facility]/[place] [address] * Specimen to Pathology (surgical or derm) (07/13/2017 5:30 PM EDT) AP Specimen 07/13/2017 5:30 PM EDT 07/13/2017 5:30 PM EDT [facility] - 07/13/2017 5:30 PM EDT Specimen requisition ordered. ??Separate Pathology report to follow Sriram Contreras MD PATHOLOGY/CYTOLOGY ORDERABLES Performing Organization Address [facility]/[place] [address] * Specimen to Pathology (surgical or derm) (07/13/2017 5:30 PM EDT) AP Specimen 07/13/2017 5:30 PM EDT 07/13/2017 5:30 PM EDT [facility] - 07/13/2017 5:30 PM EDT Specimen requisition ordered. ??Separate Pathology report to follow Sriram Contreras MD PATHOLOGY/CYTOLOGY ORDERABLES Performing Organization Address [facility] [place] [address] * Specimen to Pathology (surgical or derm) (07/13/2017 5:30 PM EDT) AP Specimen 07/13/2017 5:30 PM EDT 07/13/2017 5:30 PM EDT Narrative [facility] - 07/13/2017 5:30 PM EDT Specimen requisition ordered. ??Separate Pathology report to follow Sriram Contreras MD PATHOLOGY/CYTOLOGY ORDERABLES Performing Organization Address [facility] [place] [address] * Specimen to Pathology (surgical or derm) (07/13/2017 5:21 PM EDT) AP Specimen 07/13/2017 5:21 PM EDT 07/13/2017 5:21 PM EDT [facility] - 07/13/2017 5:21 PM EDT Specimen requisition ordered. ??Separate Pathology report to follow Sriram Contreras MD PATHOLOGY/CYTOLOGY ORDERABLES Performing Organization Address [facility]/[place] [address] * Specimen to Pathology (surgical or derm) (07/13/2017 5:21 PM EDT) AP Specimen 07/13/2017 5:21 PM EDT 07/13/2017 5:21 PM EDT [facility] - 07/13/2017 5:21 PM EDT Specimen requisition ordered. ??Separate Pathology report to follow Sriram Contreras MD PATHOLOGY/CYTOLOGY ORDERABLES Performing Organization Address City/[facility]/[place] [address] * Specimen to Pathology (surgical or derm) (07/13/2017 5:21 PM EDT) AP Specimen 07/13/2017 5:21 PM EDT 07/13/2017 5:21 PM EDT [facility] - 07/13/2017 5:21 PM EDT Specimen requisition ordered. ??Separate Pathology report to follow Sriram Contreras MD PATHOLOGY/CYTOLOGY ORDERABLES Performing Organization Address City/[facility]/[place] [address] * Specimen to Pathology (surgical or derm) (07/13/2017 5:16 PM EDT) AP Specimen 07/13/2017 5:16 PM EDT 07/13/2017 5:16 PM EDT [facility] - 07/13/2017 5:16 PM EDT Specimen requisition ordered. ??Separate Pathology report to follow Sriram Contreras MD PATHOLOGY/CYTOLOGY ORDERABLES Performing Organization Address City/[facility]/[place] [address] * Specimen to Pathology (surgical or derm) (07/13/2017 5:05 PM EDT) AP Specimen 07/13/2017 5:05 PM EDT 07/13/2017 5:05 PM EDT [facility] - 07/13/2017 5:05 PM EDT Specimen requisition ordered. ??Separate Pathology report to follow Sriram Contreras MD PATHOLOGY/CYTOLOGY ORDERABLES Performing Organization Address [facility] [place] [address] * Specimen to Pathology (surgical or derm) (07/13/2017 5:05 PM EDT) AP Specimen 07/13/2017 5:05 PM EDT 07/13/2017 5:05 PM EDT [facility] - 07/13/2017 5:05 PM EDT Specimen requisition ordered. ??Separate Pathology report to follow Sriram Contreras MD PATHOLOGY/CYTOLOGY ORDERABLES Performing Organization Address [facility] [place] [address] * Specimen to Pathology (surgical or derm) (07/13/2017 4:39 PM EDT) AP Specimen 07/13/2017 4:39 PM EDT 07/13/2017 4:39 PM EDT [facility] - 07/13/2017 4:39 PM EDT Specimen requisition ordered. ??Separate Pathology report to follow Sriram Contreras MD PATHOLOGY/CYTOLOGY ORDERABLES Performing Organization Address [facility] [place] [address] * Specimen to Pathology (surgical or derm) (07/13/2017 4:35 PM EDT) AP Specimen 07/13/2017 4:35 PM EDT 07/13/2017 4:35 PM EDT [facility] - 07/13/2017 4:35 PM EDT Specimen requisition ordered. ??Separate Pathology report to follow Sriram Contreras MD PATHOLOGY/CYTOLOGY ORDERABLES Performing Organization Address [facility]/[place] [address] * Specimen to Pathology (surgical or derm) (07/13/2017 4:35 PM EDT) AP Specimen 07/13/2017 4:35 PM EDT 07/13/2017 4:35 PM EDT [facility] - 07/13/2017 4:35 PM EDT Specimen requisition ordered. ??Separate Pathology report to follow Sriram Contreras MD PATHOLOGY/CYTOLOGY ORDERABLES Performing Organization Address City/[facility]/ZIP Co de Phone Number [facility] [place] [address] * Specimen to Pathology (surgical or derm) (07/13/2017 3:52 PM EDT) AP Specimen 07/13/2017 3:52 PM EDT 07/13/2017 3:52 PM EDT Narrative [facility] - 07/13/2017 3:52 PM EDT Specimen requisition ordered. ??Separate Pathology report to follow Sriram Contreras MD PATHOLOGY/CYTOLOGY ORDERABLES Performing Organization Address City/[facility]/[place] [address] * Specimen to Pathology (surgical or derm) (07/13/2017 3:52 PM EDT) AP Specimen 07/13/2017 3:52 PM EDT 07/13/2017 3:52 PM EDT Narrative [facility] - 07/13/2017 3:52 PM EDT Specimen requisition ordered. ??Separate Pathology report to follow Sriram Contreras MD PATHOLOGY/CYTOLOGY ORDERABLES Performing Organization Address [facility] Co de Phone Number [facility] [place] [address] * (ABNORMAL) BLOOD GAS 2 ARTERIAL (07/13/2017 3:46 PM EDT) pH, Arterial 7.31(L) 7.35 - 7.45 [facility] PCO2, Arterial 37 35 - 45 mmHg [facility] PO2, Arterial 103 85 - 104 mmHg [facility] Bicarbonate, Arterial 17.8(L) 20.0 - 26.0 mmol/L [facility] Base Excess, Arterial -8.5(L) -3.0 - 3.0 mmol/L [facility] [place] Blood Gas 15.1 13.7 - 16.5 gm/dL [facility] Oxyhemoglobin, Arterial 96.6 94.0 - 97.0 % [facility] Carboxyhemoglob in, Arterial 0.4 % [facility] Comment: Nonsmokers: 0.5-1.5% COHB Smokers: Variable, but usually less than 10% Toxic: 20-30% COHB Lethal: Greater than 60% COHB Methemoglobin, Arterial 0.3 <=1.5 % [facility] Na Whole Blood 139 [...] OF CARE TEST ORDERABLES Performing Organization Address City/State/[facility] Co de Phone Number [facility] [place] [address] * (ABNORMAL) BLOOD GAS 2 ARTERIAL (07/13/2017 2:06 PM EDT) pH, Arterial 7.32(L) 7.35 - 7.45 [facility] PCO2, Arterial 32(L) 35 - 45 mmHg [facility] PO2, Arterial 96 85 - 104 mmHg [facility] Bicarbonate, Arterial 16.0(L) 20.0 - 26.0 mmol/L [facility] Base Excess, Arterial -10.1(L) -3.0 - 3.0 mmol/L [facility] Hgb Blood Gas 14.0 13.7 - 16.5 gm/dL [facility] Oxyhemoglobin, Arterial 96.1 94.0 - 97.0 % [facility] Carboxyhemoglob in, Arterial 1.1 % [facility] Comment: Nonsmokers: 0.5-1.5% COHB Smokers: Variable, but usually less than 10% Toxic: 20-30% COHB Lethal: Greater than 60% COHB Methemoglobin, Arterial 0.3 <=1.5 % [facility] Na Whole Blood 139 [...] CARE TEST ORDERABLES [facility] [place] [address] * (ABNORMAL) Comprehensive metabolic panel (non-fasting) (07/13/2017 12:56 PM EDT) Glucose 155 65 - 199 mg/dL [facility] Comment:Diabetes: >=200 mg/d L plus symptoms Blood Urea Nitrogen 17 10 - 20 mg/dL [facility] - 107 mmol/L [facility] Carbon Dioxide 20(L) 22 - 31 mmol/L [facility] Anion Gap 14 5 - 15 mmol/L [facility] Calcium 7.9(L) 8.5 - 10.5 mg/dL [facility] Protein, Total 6.2 6.1 - 8.0 gm/dL [facility] Albumin 3.6 3.2 - 5.2 gm/dL [facility] Aspartate Aminotransferase 15 0 - 39 unit/L [facility] Alanine Aminotransferase 13 0 - 55 unit/L [facility] Alkaline Phosphatase 70 40 - 120 unit/L [facility] Bilirubin, Total 0.2 0.2 - 1.3 mg/dL [facility] Est Glomerular Filtration Rate [...] the following links into your internet browser. [email or web address] Blood specimen (specimen) 07/13/2017 12:56 PM EDT 07/13/2017 1:02 PM EDT Narrative Resulting Agency Comment Spec In Lab Sriram Contreras MD CHEMISTRY ORDERABL ES [facility] [place] [address] * (ABNORMAL) BLOOD GAS 2 ARTERIAL (07/13/2017 12:15 PM EDT) pH, Arterial 7.34(L) 7.35 - 7.45 [facility] PCO2, Arterial 39 35 - 45 mmHg [facility] PO2, Arterial 68(L) 85 - 104 mmHg [facility] Bicarbonate, Arterial 20.4 20.0 - 26.0 mmol/L [facility] Base Excess, Arterial -5.4(L) -3.0 - 3.0 mmol/L [facility] Hgb Blood Gas 15.8 13.7 - 16.5 gm/dL [facility] Oxyhemoglobin, Arterial 91.8(L) 94.0 - 97.0 % [facility] Carboxyhemoglob in, Arterial 0.9 % [facility] Comment: Nonsmokers: 0.5-1.5% COHB Smokers: Variable, but usually less than 10% Toxic: 20-30% COHB Lethal: Greater than 60% COHB Methemoglobin, Arterial 0.3 <=1.5 % [facility] Na Whole Blood 138 [...] OF CARE TEST ORDERABLES Performing Organization Address City/State/[facility] Co de Phone Number [facility] [place] [address] * Surgical Pathology Report (07/13/2017 12:04 PM EDT) Final Diagnosis [id number] ? Location: ICUS; IC14; A The signing [...] iglottic): Green ??Right epiglottis: Blue ??Lateral pharynx: [place] ??Base of tongue mucosa + deep: Blue [...] edge; (6) tumor to closest lateral pharynx ([place]) and deep specimen edges (black); (7) tumor [...] 07/13/17 12:23 Electronically signed by: ??Fabián INGRAM, Cas Comer Verified: ??07/13/2017 ?Pathologist This intraoperative consultation should be interpreted as a preliminary diagnosis pending review of the entire specimen and special studies, if any. 07/21/2017 9:57 AM EDT [facility] MOUTH REGION STRUCTURE / [...] PM EDT Sriram Contreras MD PATHOLOGY/CYTOLOGY ORDERABLES [facility] [place] [address] * Specimen to Pathology (surgical or derm) (07/13/2017 12:02 PM EDT) AP Specimen 07/13/2017 12:0 2 PM EDT 07/13/2017 12:02 PM EDT Narrative [facility] - 07/13/2017 12:02 PM EDT Specimen requisition ordered. ??Separate Pathology report to follow Sriram Contreras MD PATHOLOGY/CYTOLOGY ORDERABLES Performing Organization Address City/[facility] [place] [address] * (ABNORMAL) BLOOD GAS 2 ARTERIAL (07/13/2017 10:35 AM EDT) pH, Arterial 7.31(L) 7.35 - 7.45 [facility] PCO2, Arterial 45 35 - 45 mmHg [facility] PO2, Arterial 87 85 - 104 mmHg [facility] Bicarbonate, Arterial 22.2 20.0 - 26.0 mmol/L [facility] Base Excess, Arterial -4.0(L) -3.0 - 3.0 mmol/L [facility] [place]gb Blood Gas 15.6 13.7 - 16.5 gm/dL [facility] Oxyhemoglobin, Arterial 95.0 94.0 - 97.0 % [facility] Carboxyhemoglob in, Arterial 0.9 % [facility] Comment: Nonsmokers: 0.5-1.5% COHB Smokers: Variable, but usually less than 10% Toxic: 20-30% COHB Lethal: Greater than 60% COHB Methemoglobin, Arterial 0.0 <=1.5 % [facility] Na Whole Blood 138 [...] OF CARE TEST ORDERABLES Performing Organization Address City/[facility]/ZIP Co de Phone Number [facility] [place] [address] * ABORH Recheck Status (07/13/2017 6:27 AM EDT) ABORH Recheck Order Order Placed [facility] ABORH Type Recheck Complete [facility] Blood specimen (specimen) 07/13/2017 6:27 AM EDT 07/13/2017 6:38 AM EDT Narrative Resulting Agency Comment Spec In Lab Sriram Contreras MD BLOOD BANK LAB ORD ERABLES [facility] [place] [address] * Antibody screen (07/13/2017 6:27 AM EDT) Ab Screen Interp Negative [facility] Expires at 2359 on: 07/16/2017 [facility] Blood specimen (specimen) 07/13/2017 6:27 AM EDT 07/13/2017 6:43 AM EDT Narrative Resulting Agency Comment Spec In Lab Sriram Contreras MD BLOOD BANK LAB ORD ERABLES [facility] [place] [address] * ABO/Rh Typing (07/13/2017 6:27 AM EDT) ABORH Type O Neg [facility] Blood specimen (specimen) 07/13/2017 6:27 AM EDT 07/13/2017 6:43 AM EDT Narrative Resulting Agency Comment Spec In Lab Sriram Contreras MD BLOOD BANK LAB ORD ERABLES [facility] [place] [address] documented in this encounter Visit Diagnoses Diagnosis [...] restart at 50% of previous rate. Call house wirer if goal not achieved at maximum rate., [...] CONTINUOUS, Starting on 07/19/17 at 1815, Until Wed07/25/17 at 1203, Pain Scale Goal Less than [...] PRN, Starting on 07/17/17 at 1837, Until Wed07/18/17 at 1319, Pain, Routine Given 07/18/2017 1:13 PM EDT 25 mcg Given 07/18/2017 5:42 AM EDT 25 mcg Given 07/18/2017 1:42 AM EDT 25 mcg fentaNYL 50mcg/mL injection 50 mcg, Intravenous, EVERY 4 HOURS PRN, Starting on Wed07/18/17 at 1319, Until Wed07/19/17 at 1806, Pain, Routine Given 07/18/2017 2:31 PM EDT 50 mcg fentaNYL bolus from bag 25 mcg 25 mcg, Intravenous, ONCE, 1 dose, On 07/13/17 at 2115, Initial bolus dose: IV once now followed by continuous infusion., Routine Bolus from Bag 07/13/2017 9:12 PM EDT 25 mcg fentaNYL bolus from bag 25-100 mcg 25-100 mcg, Intravenous, EVERY 15 MIN PRN, Starting on 07/13/17 at 2050, Until 07/17/17 at 1035, Pain, [...] Intravenous, EVERY 6 HOURS PRN, Starting on Wed07/18/17 at 0306, Until Wed07/18/17 at 1313, Agitation, Routine Given 07/18/2017 1:02 PM EDT 5 mg Given 07/18/2017 3:47 AM EDT 5 mg haloperidol lactate (HALDOL) injection 5 mg 5 mg, Intravenous, EVERY 6 HOURS, First dose (after last modification) on Wed07/18/17 at 1930, Until Discontinued, Routine Given 07/19/2017 [...] CONTINUOUS, Starting on Wed07/13/17 at 0730, Until Tu07/13/17 at 2003, Day of Surgery (Day of [...] Subcutaneous, ONCE PRN, 1 dose, Starting on Tu07/13/17 at 0705, Until Tu07/13/17 at 0719, for discomfort with PIV insertion, Day of Surgery (Day of Procedure), Routine Given 07/13/2017 7:19 AM EDT 3 mg lidocaine (XYLOCAINE) 10 mg/mL (1 %) injection 1 dose, Starting on Tu07/27/17 at 0948, Until Tu07/27/17 at 1000, JV VALDEZ: cabinet override Given [...] at 1145, Administer over 120 Minutes New 07/20/2017 11:37 AM EDT 2 g 25 mL/hr magnesium sulfate 2 g in sterile water 50 mL 2 g, Intravenous, ONCE, 1 dose, On Wed07/21/17 at 2345, Administer over 120 Minutes New 07/22/2017 1:05 AM EDT 2 g 25 mL/hr magnesium sulfate 2 g in sterile water 50 mL 2 g, Intravenous, ONCE, 1 dose, On Wed07/27/17 at 1130, Administer over 120 Minutes New 07/27/2017 11:58 AM EDT 2 g 25 [...] 1130, Until Discontinued, Please hold and notify international marketing coordinator for SBP under 100 and/or HR under [...] infusion 1 dose, Starting on Wed07/13/17 at 2040, Until Wed07/13/17 at 2057, MENDOZA LEO: cabinet override propofol (DIPRIVAN) infusion [...] restart at 50% of previous rate. Call house wirer if goal not achieved at maximum rate., Routine New Bag 07/17/2017 9:17 AM EDT 50 mcg/kg/min 40 m L/hr Rate/Dose Change 07/17/2017 7:00 AM EDT 30 mcg/kg/min 24 m L/hr Rate/Dose Change 07/17/2017 6:00 AM EDT 40 mcg/kg/min 32 m L/hr propofol (DIPRIVAN) infusion 0-50 mcg/kg/min ? 142.5 kg (0-42.75 mL/hr, rounded to 0-42.8 mL/hr), Intravenous, CONTINUOUS, Starting on 07/19/17 at 1815, Until 07/25/17 at 1203, Titrate [...] restart at 50% of previous rate. Call house wirer if goal not achieved at maximum rate., [...] Porter, BRENNA)0922 (Given - Provider: Radha Colon, RN)1320 (Given - Provider: Radha Colon RN) chlorhexidine (PERIDEX) 0.12 % oral solution 15 mL 15 mL, Oral, 2 TIMES DAILY, First dose on Wed07/13/17 at 2115, Until Discontinued, Swab oral cavity. Ventilator-associated pneumonia prophylaxis, Routine 1055 (Given - Provider: Jeannie Stiles RN)205 (Given - Provider: Dixie Randhawa RN) 0936 (Given - Provider: Jv Valdez RN)213 (Given - Provider: Aebba Porter, BRENNA) 0923 (Given - Provider: Radha Colon, BRENNA) enoxaparin (LOVENOX) injection 100 mg 100 mg, [...] 0935 (See Alternative - Provider: Jv Valdez, BRENNA) 0923 (See Alternative - Provider: Radha Colon, [...] Stiles, BRENNA)1525 (Stopped - Provider: Jeannie Stiles, RN)1857 (New Bag - Provider: Jeannie Stiles, BRENNA) [...] Browne, RN)0634 (New Bag - Provider: Lorna Browne, RN)1605 (Stopped - Provider: Jeannie Stiles RN) [...] Embolism documented in this encounter Care Teams Tool Maker Apprentice Relationship Specialty Start Date End Date Jovon Sifuentes MD [address] [place] [address] PCP - General 09/30/10 09/10/21 documented as of this encounter
--- OUTSIDE RECORDS SUMMARY | 2024-12-05 14:14 | XMS_ITS | Encounter Summary ---
[place] [address] Care Team Providers Care Investigations Director Name Role Phone Jovon Sifuentes MD Primary Care Provider Reason for Referral * Diagnostic Test (Routine) - Closed Specialty Diagnoses / Procedures Referred By Huma valladares Referred To Contact Radiology Diagnoses Cancer of base of tongue Procedures CT Neck Soft Tissue w Contrast (Generic) Sriram Contreras MD [facility] [place] [address] [facility] [place] [address] Referral ID Status Reason Start Date Expiration Date V isits Requested Visits Authorized [id number] Closed Specialty Service Requested 06/17/2017 06/17/2018 1 [...] Expiration Date Visits Re quested Visits Authorized [id number] 1 1 Encounter Details Date Type Department Care Team (Latest Contact Info) Description 07/13/2017 9:15 AM EDT - 07/13/2017 11:59 PM EDT Hospital Encounter Radiology at [facility] [place] [address] Cancer of base of tongue Discharge Disposition: [...] AM EDT Office Visit Hematology/Oncology at [address] [phone] Dmitry Bhatti MD [facility] [place] [address] Ellen Mcrae APRN [facility] [place] [address] 01/30/2025 11:30 AM EDT Infusion Hematology Oncology at [address] [phone] documented as of this encounter Procedures Procedure [...] mLs documented in this encounter Care Teams Investigations Director Relationship Specialty Start Date End Date Jovon Sifuentes MD [address] [place] [address] PCP - General 09/30/10 09/10/21 documented as of this encounter
--- OUTSIDE RECORDS SUMMARY | 2024-12-05 14:14 | XMS_ITS | Encounter Summary ---
Author Organization [facility] [place] [address] Care Team Providers Care Dietetic Assistant Name Role Phone Jovon Sifuentes MD Primary Care Provider [phone] Reason for Visit * Auth/Cert Specialty Diagnoses [...] Expiration Date Visits Re quested Visits Authorized [id number] 1 1 Encounter Details Date Type Department Care Team (Late st Contact Info) Description 07/16/2017 12:05 PM EDT Anesthesia Event [place] [address] Brock Tang MD [facility] [place] [address] Biju Blue MD [facility] [place] [address] Anesthesia Record Procedure Summary Procedure Name Responsible [...] 0836; metacarpal vein (top of hand), right; [id number] catheter system; 20 gauge, 1 in length; [...] 0850; median vein (underside of arm), left; [id number] catheter system; 18 gauge; Beau; removed inadvertently, catheter/device intact; 07/20/17; 0200 07/13/17 0850 by Karla Chavarria, FIELD APPLICATION ENGINEER 07/20/17 0200 by Shannon Toribio RN NG/OG [...] Tang MD - 07/16/2017 12:47 PM EDT [facility] [place] Anesthesiology Post-procedure Note Patient: Jose Bee Procedure Summary Date Anesthesia Start Anesthesia Stop Room / Location 07/16/[address] [facility] OR 04 / [facility] MAIN OR Procedure Diagnosis Surgeon Responsible Provider LARYNGOSCOPY, WITH MICROSCOPE (WRVU 2.57) (N/A Throat) (Intubation) Sriram Contreras MD Pouliot, Ryan C, MD All Anesthesia Providers: Anesthesiologist: Brock Tang MD FIELD APPLICATION ENGINEER: Karla Chavarria CRNA Last (1hr) Vitals: BP [...] Date ??? ACHILLES TENDON SURGERY Right [place] [facility] [place]?? KNEE ARTHROSCOPY [facility]. [facility] ??? PRO BIOPSY OROPHARYNX N/A 05/24/2017 BIOPSY, OROPHARYNX (WRVU 1.44) performed by Zafar Madera MD at [facility] MAIN OR ??? PRO LARYNGOSCOPY, DIRCT, OP SCOPE, BIOPSY N/A 05/24/2017 LARYNGOSCOPY, MICROSCOPE, WITH BIOPSY (WRVU 3.55) performed by Zafar Madera MD at [facility] MAIN OR ??? QUADRACEPS TENDON REPAIR Right 04/2016 [facility] ??? TONSILLECTOMY Social History Substance Use [...] discussed with spouse. Plan discussed with resident, FIELD APPLICATION ENGINEER and attending. PAT Staff Note documented in this encounter Plan of Treatment Upcoming Encounters Date Type Department Care Team (Late st Contact Info) Description 01/30/2025 11:00 AM EDT Office Visit Hematology/Oncology at [address] [phone] Dmitry Bhatti MD [facility] [place] [address] Ellen Mcrae APRN [facility] [place] [address] 01/30/2025 11:30 AM EDT Infusion Hematology Oncology at [address] [phone] documented as of this [...] mcg documented in this encounter Care Teams Dietetic Assistant Relationship Specialty Start Date End Date Jovon Sifuentes MD [address] [place] [address] PCP - General 09/30/10 09/10/21 documented as of this encounter
--- OUTSIDE RECORDS SUMMARY | 2024-12-05 14:14 | XMS_ITS | Encounter Summary ---
Author Organization [facility] [place] [address] Care Team Providers Care Oil Burner Name Role Phone Jovon Sifuentes MD Primary Care Provider [phone] Reason for Visit * Auth/Cert Specialty Diagnoses [...] Expiration Date Visits Re quested Visits Authorized [id number] 1 1 Encounter Details Date Type Department Care Team (Late st Contact Info) Description 07/16/2017 10:58 AM EDT - 07/16/2017 1:17 PM EDT [place] [phone] Sriram Contreras MD [facility] [place] [address] LARYNGOSCOPY, WITH MICROSCOPE (WRVU 2.57) Social History [...] staging exam TECHNIQUE: Following IV injection of 94-wcrppt-4-deoxyglucose (FDG) a standard uptake of approximately 60 [...] Thank you for referring this patient to [facility]. I have personally reviewed the [...] -You can reach the ENT clinic at [phone] for appointment questions. -The ENT triage nurse is available at [phone] -For urgent issues during evenings and weekends the ENT resident monumental stonemason can be reached through [facility] plant attendant or assistant operator at [phone] Follow Up: You will need to follow [...] Geovanna Deleon MD Hematology and Oncology at [place] [phone] General Instructions None __ Primary Care Doctor: Jovon Sifuentes MD [phone] Signed: Celso Mejía MD 07/29/2017 documented in [...] -You can reach the ENT clinic at [phone] for appointment questions. -The ENT triage nurse is available at [phone] -For urgent issues during evenings and weekends the ENT resident monumental stonemason can be reached through [facility] plant attendant or assistant operator at [phone] Follow Up: You will need to follow [...] Geovanna Deleon MD Hematology and Oncology at [place] [phone] documented in this encounter Medications at Time [...] att. providers found Jose Bee discharged to [facility] by private car with Spouse. All belongings sent with patient. DONNA removed, incision healing well, no significant drainage, no dehiscence, no significant erythema, skin free from pressure ulcers. Discharge instructions given to . Report called to Vidhi at [facility] @ 1340. * Alexus Soler RN - 07/29/2017 11:38 AM EDT Patient accepts bed at [facility]. Spoke with Patient and in regards to transportation. will provide transportation to [facility]. Adrienne Soler RN Care Management * Lexy Scott - 07/29/2017 10:57 AM EDT Office of Care Management/Grain Unloader Machine Patient Name: Jose Bee : 1950 Patient has been offered a [facility] bed at [facility]. The patient will be transported by private transportation. No MD to MD report necessary Please call Nursing Report to , ask for Vidhi. Info to accompany patient: Narcotic Prescriptions Copies of Medication Administration Records and IV sheets for past 10 days. Plan: Grain Unloader Machine will be available to the patient and Chief Innovation Officer-RN and/or Social Workerfor further assistance. Patient will be discharged to: [facility] [address] [place] [address] Melany Rodrigues * Luana Henry RN - 07/29/2017 7:00 AM EDT Patient arrived via bed to rm 514, oob sitting in chair. Aox4, calling . Denies pain. Plan for discharge today pending bed. 1 assist to bathroom. Voids with out difficulty. [place] to floor and call srinivasan system. Would like to take a shower and have his CPAP cleaned. Will report to oncoming RN/CONCEPCION. * Kayley Chris RCP - 07/29/2017 4:40 AM EDT Patient was compliant with home CPAP usage tonight. * Anay Diallo RN - 07/28/2017 3:40 PM EDT Chief Innovation Officer Follow Up Note Patient plan of care discussed in multidisciplinary rounds. Met with patient and to assess continuing care and discharge needs. Continues to require hospitalization for Head and neck cancer. Discharge plan to snf when medically ready. Chief Innovation Officer to follow with team and family to assist with discharge needs when patient ready for discharge. Anay Diallo RN Case Management for [facility] pgr [phone] * Celso Mejía [...] Mejía MD, PGY1 07/28/17 7:05 AM Pager: [phone] * Anay Diallo RN - 07/27/2017 2:44 PM EDT Based on discussions with the multi-disciplinary healthcare team, the patient would benefit from skilled level of care at discharge. ?? I have met with the patient/client representative to discuss discharge planning needs. I have provided the [facility], Office of Care Management letter from the Accountant Clerk pertaining to rehab referrals. I have also provided a letter describing our affiliations within the [facility] and educated them about their right to choose where referrals are placed. ?? I reviewed the different levels of rehab including SNF, swing, acute and LTAC with the patient/client representative. ?? The patient/client representative has been provided a list of facilities within their preferred geographic area. ?? I have requested that the patient/client representative provide at least three choices for referral. ?? The patient/client representative have requested referrals to: 1. [facility] ?? PHONE: [phone] FAX: [phone].. 2. [facility] [address] [place] [address] ?? 3. [facility] ([facility]) [address] [place] [address] ? Expected date of discharge: TBD Note routed to Grain Unloader Machine who will communicate referrals to facilities and [...] Mejía MD, PGY1 07/27/17 7:01 AM Pager: [phone] * Collette Schultz - 07/26/2017 8:21 PM EDT Stocking And Box Shop Supervisor Encounter Note Patient Name: Jose Bee : [id number] MR#: [id number] Admit Date: 07/13/2017 6:04 AM Hospital Day 13 days Narrative: Attempted return visit - pt sleeping. Time in Direct Care: 0 min. Collette Schultz 07/26/2017 * Collette Schultz - 07/26/2017 3:00 PM EDT Stocking And Box Shop Supervisor Encounter Note Patient Name: Jose Bee : [id number] MR#: [id number] Admit Date: 07/13/2017 6:04 AM Hospital Day 13 days Narrative: Lockstitch Machine Operator visit per Consult Order Assessment: Pt [...] Diallo RN - 07/26/2017 2:30 PM EDT Chief Innovation Officer Follow Up Note Patient plan of care discussed in multidisciplinary rounds. Met with patient to assess continuing care and discharge needs. Continues to require hospitalization for Head and neck cancer. Discharge plan uncertain at this time. Chief Innovation Officer to follow with team and family to assist with discharge needs when patient ready for discharge. Anay Diallo RN Case Management for [facility] pgr [phone] * Briana Goel RN - 07/26/2017 2:29 PM EDT [facility] Interventional Radiology ? Interventional Radiology [...] patient's provider, ENT Service Dr. Jackie Mejía #[id number] , regarding above. Paged, callback # provided [...] Overview: March 2017: noted in ED in [facility]. Previously noted to be paroxysmal. No awareness. CHADS2-VASc=1 (age). Started on apixaban for PE Acute respiratory failure Overview: Worsening oxygenation. OKRI on CPAP Adult BMI 30+ Estimated body mass index is 38.74 kg/(m^2) as calculated from the following: Height as of this encounter: 191.8 cm (6' 3.51). Weight as of this encounter: 142.5 kg (314 lb 2.5 oz). Admit Wt: 133.36 kg Hollywood body weight: 90.4 kg Type of access: [...] vitamins and minerals. Assessment: Estimated Nutrition Needs: 6453-6143 calories (20-25 kcal/kg IBW) 135-160 grams protein (1.5-2.0 g/kg IBW) Patient is out of the ICU and out on the floor. Tube feedings need adjustment as pt is no longer onpropofol. Appears tube feedings are still medically indicated given pt is s/p swallow eval and BLACK TOP PAVER OPERATOR recommends continuation of dobhoff TF for now. KATHY oMsqueda * Celso Mejía MD - 07/26/2017 9:00 [...] Mejía MD, PGY1 07/26/17 9:01 AM Pager: [phone] * Calista Peralta RT - 07/26/2017 12:27 [...] as described above. Findings discussed with Dr. Cueavs at the time of this interpretation ?? [...] 7.44 7.41 7.42 PO2ART 67* 60* 78* [id number] 39 37 39 BEART 1.2 -2.0 0.3 [...] 7.44 7.41 7.42 PO2ART 67* 60* 78* [id number] 39 37 39 BEART 1.2 -2.0 0.3 [...] Otolaryngology [facility] ([facility]) [facility] * Beena Saini RCP - 07/24/2017 4:28 [...] 07/23/2017 3:50 PM EDT Office of Care Management(OCM)/Chief Innovation Officer(CM) Service: ENT Pt remains intubated at this [...] get appropriate choices after recs are made. Chief Innovation Officer Roc Valdez RN, BSN Pager #[phone] * Sony Oliva MD - 07/23/2017 11:31 [...] 07/23/2017 No results found for: PHART, PO2ART, YKX2UAV ASSESSMENT, MANAGEMENT, and DECISION MAKING: potential for [...] LEAST ONE OF THESE DX to USE 00272 ARDS Stupor Hypoxemic Resp Failure (Fi02>50%) Delirium [...] LEAST ONE OF THESE DX to USE 10356 ARDS Stupor Hypoxemic Resp Failure (Fi02>50%) Delirium [...] to reach the patient's provider, Red 1 7114, regarding above. Monitor weight. Jose Bee is [...] LEAST ONE OF THESE DX to USE 10633 ARDS Stupor Hypoxemic Resp Failure (Fi02>50%) Delirium [...] PGY2 07/20/17 7:21 AM * Kaiden Gorman, [facility] - 07/20/2017 4:35 AM EDT AMV [...] LEAST ONE OF THESE DX to USE 43685 ARDS Stupor Hypoxemic Resp Failure (Fi02>50%) Delirium [...] plan. Lakeshia Mckeon MD * Jeannie Jewell, [facility] - 07/17/2017 7:24 PM EDT 07/17/17 [...] Jr, MD, PGY2 07/17/17 8:21 PM Pager: [phone] (For daytime 6AM - 6PM) Please contact on-call night ENT paid internship for issues between 6PM - 6AM [...] the need arise fora surgical airway. - [facility] vent protocol - HOB 30 degrees ?? [...] kg (294 lb). Admit Weight: 133.36 kg Hollywood Body Weight: 90.3 kg I/O last 1 [...] service. Nutrition to follow. * Lillian Pardo, BLACK TOP PAVER OPERATOR - 07/16/2017 1:48 PM EDT Speech-Language Pathology Initial Consult ?? Order received and acknowledged. Records reviewed and pt and RN contacted. Pt remains intubated at this time. Assessment deferred at this time. Please re- consult after pt successfully extubated. ?? Lillian Pardo MA CCC-BLACK TOP PAVER OPERATOR Inpatient Rehabilitation Medicine pager:# [phone] * Salazar Bhagat MD - 07/16/2017 11:57 [...] need arise for a surgical airway. - [facility] vent protocol - HOB 30 degrees ?? [...] Days Post-Op Patient ID/Reason for Admission Jsoe Bee is a 66 y.o. male [...] Martino MD, PGY1 07/16/17 9:12 AM Pager: [phone] (For daytime 6AM - 6PM) Please contact on-call night ENT paid internship for issues between 6PM - 6AM * Supa Sharif, TEA TASTER - 07/15/2017 8:15 PM EDT AMV Protocol: [...] need arise for a surgical airway. - [facility] vent protocol - Dexamethasone x3 doses - [...] & NECK SURGERY DAILY PROGRESS NOTE Name: Jsoe Bee Age/Sex: 66 y.o. male Attending: Sriram [...] Martino MD, PGY1 07/15/17 7:06 AM Pager: [phone] (For daytime 6AM - 6PM) Please contact on-call night ENT paid internship for issues between 6PM - 6AM * Supa Sharif, [facility] - 07/14/2017 9:40 PM EDT AMV [...] ?? Pulm: nasally intubated, difficult airway - [facility] vent protocol - Dexamethasone x3 doses for [...] MD 07/14/2017 6:47 PM * Adam Montana, [facility] - 07/14/2017 2:03 PM EDT AMV [...] Martino MD, PGY1 07/14/17 9:38 AM Pager: [phone] (For daytime 6AM - 6PM) Please contact on-call night ENT paid internship for issues between 6PM - 6AM [...] of this encounter: 133.4 kg (294 lb). Hollywood Body Weight: 90.3 kg I/O last 1 [...] ETT secured via suture. Of note, the tree feller operator balloon line is wrapped up in [...] Date ??? ACHILLES TENDON SURGERY Right 1996 [facility] ??? KNEE ARTHROSCOPY christelle. [facility] ??? PRO BIOPSY OROPHARYNX N/A 05/24/2017 BIOPSY, OROPHARYNX (WRVU 1.44) performed by Zafar Madera MD at [facility] MAIN OR ??? PRO LARYNGOSCOPY, DIRCT, OP SCOPE, BIOPSY N/A 05/24/2017 LARYNGOSCOPY, MICROSCOPE, WITH BIOPSY (WRVU 3.55) performed by Zafar Madera MD at [facility] MAIN OR ??? QUADRACEPS TENDON REPAIR Right 04/2016 [facility] ??? TONSILLECTOMY Allergies: Allergies Allergen Reactions [...] 17 Occupational History ??? 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 He is to Briana for 40 yrs. 4 children - All live in different states - [place] Enjoys raising Beef Cattle and doing Civil War and Living History and shoot Black powder/Antique firearms. He enjoys builiding Firearms/Blacksmithing - [place], [place], etc. Review of Systems: Not obtained due [...] - currently stable Pulm: nasally intubated - [facility] vent protocol GI: DHT - Diet: NPO [...] this case performed under IRB Protocol Study [id number] (Improving throat cancer surgical outcomes through intra-operative [...] to the planned procedure. Hand Hygiene: The occasional caregiver did perform hand hygiene prior to arterial [...] hypoxic respiratory failure Location of Procedure: ICU [facility]. Risks and Benefits: The risks and [...] RECOMMENDATIONS: ?? Continue dysphagia soft diet and Kite-thick liquids. ?? Upright to feed. ?? Small bites/sips. ?? Medications crushed in applesauce. Sriram Thompson MS [facility]-BLACK TOP PAVER OPERATOR Speech-Language Pathologist Rehabilitation Medicine Pager - [phone] Problem: Acute Rehab Services Goal & Intervention [...] Anticipated Discharge Disposition: inpatient rehabilitation facility Pager: [phone] OTONIEL JOSHUA OT 07/28/2017 Occupational Therapy Rehabilitation [...] * Plan of Care - Sriram Thompson, BLACK TOP PAVER OPERATOR - 07/28/2017 2:18 PM EDT Problem: [...] documentation. RECOMMENDATIONS: ?? Dysphagia soft diet and Kite-thick liquids. ?? Upright to feed. ?? Small bites / sips. ?? Crush medications in applesauce when possible. Sriram Thompson MS [facility]-BLACK TOP PAVER OPERATOR Speech-Language Pathologist Rehabilitation Medicine Pager - [phone] Problem: Acute Rehab Services Goal & Intervention [...] Anticipated Discharge Disposition: inpatient rehabilitation facility Pager: [phone] CRISTIAN NELSON, PT 07/27/2017 Physical Therapy Rehabilitation [...] sit/sit to supine -- Bed Mobility Goal, Bayview Level independent -- Bed Mobility Goal, Outcome Achieved -- goal ongoing Goal: Gait Training Goal Stand Alone Therapy Goal Outcome: Ongoing (Interventions Implemented as Appropriate) 07/26/17 1329 07/27/17 1230 Gait Training Goal Gait Training Goal, Date Established 07/26/17 -- Gait Training Goal, Time to Achieve 30 days -- Gait Training Goal, Bayview Level supervision required -- Gait Training Goal, [...] days -- Transfer Training Goal, Activity Type nlr-ot-bnllg/xtolg-im-lul;uvz-ww-kitlh/pruau-do-ntl -- Transfer Train Goal, Bayview Level supervision required -- Transfer Training Goal, Assist Device walker, rolling -- Transfer Training Goal, Outcome -- goal ongoing * Plan of Care - Sriram Thompson, BLACK TOP PAVER OPERATOR - 07/27/2017 10:59 AM EDT Problem: [...] Crush medications in applesauce. Sriram Thompson MS [facility]-BLACK TOP PAVER OPERATOR Speech-Language Pathologist Rehabilitation Medicine Pager - [phone] Problem: Acute Rehab Services Goal & Intervention [...] PLAN MOVING FORWARD: -PEG tube. -IV abx -BLACK TOP PAVER OPERATOR consult. -hep gtt. INDIVIDUALIZED FALL PREVENTION [...] Pt appeared anxious and frustrated this morning. Lockstitch Machine Operator consulted and talked with patient today. During [place] [facility] it was determinedthat tube [...] Anticipated Discharge Disposition: inpatient rehabilitation facility Pager: [phone] OTONIEL JOSHUA OT 07/26/2017 Occupational Therapy Rehabilitation [...] Anticipated Discharge Disposition: inpatient rehabilitation facility Pager: [phone] CRISTIAN NELSON, PT 07/26/2017 Physical Therapy Rehabilitation [...] to sit/sit to supine Bed Mobility Goal, Bayview Level independent Goal: Gait Training Goal Stand Alone Therapy Goal Outcome: Ongoing (Interventions Implemented as Appropriate) 07/26/17 1329 Gait Training Goal Gait Training Goal, Date Established 07/26/17 Gait Training Goal, Time to Achieve 30 days Gait Training Goal, Bayview Level supervision required Gait Training Goal, Assist [...] 30 days Transfer Training Goal, Activity Type mtv-ge-nipkt/osjtp-su-rtr;vaz-ot-xvbjf/feytx-ed-zeq Transfer Train Goal, Bayview Level supervision required Transfer Training Goal, Assist Device walker, rolling * Consult Note - Deanna Menjivar MD - 07/26/2017 11:08 AM EDT INITIAL HEME/ ONC CONSULT DATE OF CONSULT 07/26/2017 PATIENT Jose Bee 1950 REFERRING PHYSICIAN SRIRAM CONTRERAS A CONSULTATION QUESTION Recommendations for anticoagulation leaving the hospital HISTORY PRESENT ILLNESS This patient is a 66 y.o. male with a relevant past medical history significant for oropharyngeal cancer, malignancy associated VTE and Afib (CHADS-VASc of 1) who presented to [facility] for radical neck dissection on 07/13/17. We [...] Date ??? ACHILLES TENDON SURGERY Right 1996 [facility] ??? KNEE ARTHROSCOPY christelle. [facility] ??? PRO BIOPSY OROPHARYNX N/A 05/24/2017 BIOPSY, OROPHARYNX (WRVU 1.44) performed by Zafar Madera MD at [facility] OR ??? PRO LARYNGOSCOPY, DIRCT, OP SCOPE, BIOPSY N/A 05/24/2017 LARYNGOSCOPY, MICROSCOPE, WITH BIOPSY (WRVU 3.55) performed by Zafar Madera MD at [facility] OR ??? PRO LARYNGOSCOPY, DIRECT, DX, OP MICROSCOP N/A 07/16/2017 LARYNGOSCOPY, WITH MICROSCOPE (WRVU 2.57) performed by Sriram Contreras MD at [facility] OR ??? PRO PART EXC TONGUE, UNILAT RAD NECK Right 07/13/2017 @GLOSSECTOMY, PARTIAL,WITH UNILATERAL RADICAL NECK DISSECTION (WRVU 30.14) performed by Sriram Contreras MD at [facility] ??? PRO PARTIAL REMOVAL OF PHARYNX N/A 07/13/2017 PHARYNGECTOMY, LIMITED (WRVU 19.13) performed by Sriram Contreras MD at [facility] ??? PRO UNLISTED PROCEDURE LARYNX N/A 07/13/2017 LARYNGOSCOPY, MICRO, LASER EXCISION (WRVU 12.14) performed by Sriram Contreras MD at [facility] ??? QUADRACEPS TENDON REPAIR Right 04/2016 [facility] ??? TONSILLECTOMY FAMILY HISTORY No family history on file. No family history of VTE SOCIAL HISTORY Social History Social History ??? Marital status: Spouse name: Briana ??? Number of children: 4 ??? 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 He is to Briana for 40 yrs. 4 children - All live in different states - One Kathleen Enjoys raising Beef Cattle and doing Civil War and Living History and shoot Black powder/Antique firearms. He enjoys builiding Firearms/Blacksmithing - [place]coal, [place], etc. PHYSICAL EXAMINATION Most Recent Vitals: 07/26/17 [...] and thrombosis clinic Felice Harvey MD Pager [phone] Heme-Onc Fellow ?? HEMATOLOGY STAFF ADDENDUM I [...] Deanna Menjivar MD Hematology Staff physician, Pager: [phone] 07/26/17 * Plan of Care - Sriram Thompson, BLACK TOP PAVER OPERATOR - 07/26/2017 9:33 AM EDT Problem: [...] degrees at all times. Sriram Thompson MS [facility]-BLACK TOP PAVER OPERATOR Speech-Language Pathologist Rehabilitation Medicine Pager - [phone] Problem: Acute Rehab Services Goal & Intervention [...] Ongoing (Interventions Implemented as Appropriate) 07/26/17 0836 Individualization Patient Specific Preferences I want to [...] Bee was transferred from the ICU to [facility] at approximately 1430 on 07/25/17. [...] per order. PLAN MOVING FORWARD: Transfer to [facility] INDIVIDUALIZED FALL PREVENTION INTERVENTIONS: Patient-specific fall [...] am. PLAN MOVING FORWARD: Extubate, transfer to [facility] when able INDIVIDUALIZED FALL PREVENTION INTERVENTIONS: [...] Overview Goal: Plan of Care Review 07/23/17 7063 Coping/Psychosocial Plan Of Care Reviewed With patient [...] Outcome: Ongoing (Interventions Implemented as Appropriate) 07/15/17 6584 Skin Integrity Impairment, Risk/Actual Skin Integrity Impairment, [...] MOVING FORWARD: Extubate this am, transfer to [facility] when able INDIVIDUALIZED FALL PREVENTION INTERVENTIONS: [...] RN or CONCEPCION Surveillance [continuous indirect monitoring]: Wendel ICU monitor Patient-specific fall prevention interventions for [...] OUTCOME EVALUATION: * Plan of Care - Adyen Quintero RN - 07/17/2017 5:22 AM EDT [...] Contreras MD - 07/16/2017 12:27 PM EDT [facility] Operative Note Patient Name: Jose Bee : [id number] MR#: [id number] Case Date: 07/16/2017 Surgeon: Surgeon(s) and Role: [...] monitoring required during toileting and ADLs]: RN, LACING STRING CUTTER and RT Surveillance [continuous indirect monitoring]: Monitor [...] Contreras MD - 07/15/2017 4:58 PM EDT [facility] Operative Note Patient Name: Jose Bee : [id number] MR#: [id number] Case Date: 07/13/2017 Surgeon: Surgeon(s) and Role: * Sriram Contreras MD - Primary * Selvin Kaye MD - Resident-Oceanology Teacher * Hilton Cheney PA - Physician Lens Block Gauger Preoperative diagnosis: Right tongue base cancer Postoperative [...] completed, we then registered the patient using [employer] electromagnetic registration to the intraoperative imaging that [...] Vicryl suture. Once this was completed, two 15-Hungarian Robin drains were placed in the neck, [...] 66 y.o. male with PMH Afib, PE, KOIR, BPH and hypothyroidwho is now s/p radical [...] Bee would be surrogate decision maker per [place] surrogate decision making law. Any patient receiving care at [facility] must abide by [place] law. The hierarchy for surrogate decision making [...] Insurance: MEDICARE A & B Secondary Insurance: [facility] Prescription Coverage: yes. Preferred Pharmacy: [facility] in [place], [place]. Other: none. Primary Care Provider: Jovon Sifuentes MD [phone] Patient/Caregiver Goals of Treatment: plan being determined at this time. Likely home health at [place]. Potential Needs for Transition of Care: Rehab/SNF: tbd. Home Health: tbd. DME: none previously required. Dialysis: N/A Community Resources: none. Transportation: spouse will provide. Other: none. Anticipated Barriers to Discharge/Special Considerations: no barriers identified at this time. Plan: a member of the Care Management team will continue to monitor progress, follow for continuityof care and assist with transition of care planning. Chief Innovation Officer Roc Valdez RN, BSN Pager #[phone] documented in this encounter Plan of Treatment Upcoming Encounters Date Type Department Care Team (Late st Contact Info) Description 01/30/2025 11:00 AM EDT Office Visit Hematology/Oncology at [address] [phone] Dmitry Bhatti MD [facility] [address] [place] [address] Ellen Mcrae APRN [facility] [place] [address] 01/30/2025 11:30 AM EDT Infusion Hematology Oncology at [address] [phone] documented as of this encounter Procedures Procedure Name Priority Date/Time Associated Diagnosis Comments MANUAL MACHINIST SCAN 07/30/2017 12:00 AM EDT HEMOGRAM Routine [...] EDT TYPE AND SCREEN, SDP (FUTURE SURGERY, [facility] SAME DAY PROGRAM ONLY) STAT 07/13/2017 6:27 AM EDT ABO/RH TYPING STAT 07/13/2017 6:27 AM EDT ANTIBODY SCREEN STAT 07/13/2017 6:27 AM EDT documented in this encounter Results * SCAN DOC: MANUAL MACHINIST (07/30/2017 12:00 AM EDT) Anatomical Region Laterality Modality Other Narrative 07/30/2017 12:00 AM EDT Ordered by an unspecified provider. Scanning Provider MEDIA MGR SCAN EXT O RDR/RSLT * (ABNORMAL) Differential, Automated (07/29/2017 3:41 AM EDT) Neutrophil % 59.9 % [facility] Neutrophil Absolute 4.48 1.70 - 6.10 x10(3)/mc L [facility] Lymph % 26.0 % [facility] Lymphocytes Abs 2.0 0.9 - 3.2 x10(3)/mc L [facility] Monocyte % 10.0 % [facility] Monocyte Abs 0.8 0.3 - 0.9 x10(3)/mc L [facility] Eos % 2.1 % [facility] Eosinophils Abs 0.2 0.0 - 0.4 x10(3)/mc L [facility] Basophil % 0.7 % [facility] Baso Absolute 0.0 0.0 - 0.1 x10(3)/mc L [facility] Immature Gran % 1.30 % [facility] Comment: Immature granulocytes(IG's)percentage and absolute count will include metamyelocytes, myelocytes, and promyelocytes. Blood smears from CBCs yielding IG's will be scanned manually for concordance. If this scan disagrees with the automated IG or if promyelocytes are noted, a manual differential will be performed. Immature Gran Absolute 0.10(H) 0.00 - 0.04 x10(3)/ L [facility] Blood specimen (specimen) 07/29/2017 3:41 AM EDT 07/29/2017 3:58 AM EDT Narrative Resulting Agency Comment Spec In Lab Sriram Contreras MD HEMATOLOGY ORDERAB LES Performing Organization Address City/State/[facility] Co de Phone Number [facility] [place] [place] [address] * (ABNORMAL) Hemogram (07/29/2017 3:41 AM EDT) White Blood Cell 7.5 4.0 - 9.5 x10(3)/[facility] Red Blood Cell 4.14(L) 4.58 - 5.54 x10(6)/[facility] Hemoglobin 12.7(L) 13.7 - 16.5 gm/dL [facility] Hematocrit 38.1(L) 40.5 - 48.5 % [facility] Mean Cell Volume 92.0 82.9 - 93.1 [facility] Mean Cell Hemoglobin 30.7 27.5 - 32.1 pg [facility] Mean Cell Hemoglobin Concentration 33.3 32.0 - 35.7 gm/dL [facility] Platelet 281 145 - 357 x10(3)/[facility] RDW Standard Deviation 46.4(H) 36.0 - 45.0 [facility] RDW coefficient of variation 13.9(H) 11.4 - 13.8 % [facility] Mean Platelet Volume 9.9 7.6 - 12.9 [facility] NRBC% auto 0.0 % [facility] NRBC Absolute 0.000 0.000 - 0.000 x10(3)/ L [facility] Blood specimen (specimen) 07/29/2017 3:41 AM EDT 07/29/2017 3:58 AM EDT Narrative Resulting Agency Comment Spec In Lab Sriram Contreras MD HEMATOLOGY ORDERAB LES [facility] [place] [place] [address] * Basic Metabolic Panel (non-fasting) (07/29/2017 3:41 AM EDT) Glucose 95 65 - 199 mg/dL [facility] Comment:Diabetes: >=200 mg/d L plus symptoms Blood Urea Nitrogen 16 10 - 20 mg/dL [facility] Creatinine 0.95 0.80 - 1.50 mg/dL [facility] Comment: Please note that the pediatric reference intervals supplied above were not validated at [facility]. Results from pediatric patients should be interpreted in conjunction to the patient's age, height and muscle mass. Sodium 139 135 - 145 mmol/L [facility] Potassium 3.9 3.5 - 5.0 mmol/L [facility] Comment: Please note: ??Patients with WBC >100,000 may have falsely elevated Potassium levels. ??For accurate Potassium quantification in these patients send serum separator tube (gold top) for subsequent determinations. ??Contact the Clinical Chemistry Laboratory if there are any questions. Chloride 102 98 - 107 mmol/L [facility] Carbon Dioxide 24 22 - 31 mmol/L [facility] Anion Gap 13 5 - 15 mmol/L [facility] Calcium 8.9 8.5 - 10.5 mg/dL [facility] Est Glomerular Filtration Rate [...] the following links into your internet browser. [email or web address] Blood specimen (specimen) 07/29/2017 3:41 AM EDT 07/29/2017 3:58 AM EDT Narrative Resulting Agency Comment Spec In Lab Sriram Contreras MD CHEMISTRY ORDERABL ES Performing Organization Address City/[facility]/ZIP Co de Phone Number [facility] [place] [place] [address] * POCT Glucose (07/28/2017 11:53 AM EDT) Glucose, POC 107 65 - 199 mg/dL [facility] Comment: Supplemental ranges: <140 mg/dL before meals <180 mg/dL all other times of the day Blood specimen (specimen) 07/28/2017 11:53 AM EDT 07/28/2017 11:53 AM EDT Sriram Contreras MD POINT OF CARE TEST ORDERABLES Performing Organization Address [facility]/ZIP Co de Phone Number [facility] [place] [place] [address] * POCT Glucose (07/28/2017 7:52 AM EDT) Glucose, POC 97 65 - 199 mg/dL [facility] Comment: Supplemental ranges: <140 mg/dL before meals <180 mg/dL all other times of the day Blood specimen (specimen) 07/28/2017 7:52 AM EDT 07/28/2017 7:52 AM EDT Sriram Contreras MD POINT OF CARE TEST ORDERABLES Performing Organization Address [facility]/ZIP Co de Phone Number [facility] [place] [address] * POCT Glucose (07/28/2017 4:27 AM EDT) Glucose, POC 98 65 - 199 mg/dL [facility] Comment: Supplemental ranges: <140 mg/dL before meals <180 mg/dL all other times of the day Blood specimen (specimen) 07/28/2017 4:27 AM EDT 07/28/2017 4:27 AM EDT Sriram Contreras MD POINT OF CARE TEST ORDERABLES Performing Organization Address [facility] [place] [address] * Phosphorus (07/28/2017 3:47 AM EDT) Phosphorus 3.7 2.5 - 4.5 mg/dL [facility] Blood specimen (specimen) 07/28/2017 3:47 AM EDT 07/28/2017 6:16 AM EDT Narrative Resulting Agency Comment Spec In Lab Sriram Contreras MD CHEMISTRY ORDERABL ES Performing Organization Address [facility] Phone Number [facility] [place] [address] * Magnesium (07/28/2017 3:47 AM EDT) Magnesium 0.86 0.69 - 1.07 mmol/L [facility] Blood specimen (specimen) 07/28/2017 3:47 AM EDT 07/28/2017 6:16 AM EDT Narrative Resulting Agency Comment Spec In Lab Sriram Contreras MD CHEMISTRY ORDERABL ES Performing Organization Address [facility] de Phone Number [facility] [place] [place] [address] * (ABNORMAL) Differential, Automated (07/28/2017 3:47 AM EDT) Neutrophil % 62.2 % [facility] Neutrophil Absolute 4.94 1.70 - 6.10 x10(3)/mc L [facility] Lymph % 22.1 % [facility] Lymphocytes Abs 1.8 0.9 - 3.2 x10(3)/mc L [facility] Monocyte % 10.6 % [facility] Monocyte Abs 0.8 0.3 - 0.9 x10(3)/[facility] Eos % 2.1 % [facility] Eosinophils Abs 0.2 0.0 - 0.4 x10(3)/[facility] Basophil % 1.1 % [facility] Baso Absolute 0.1 0.0 - 0.1 x10(3)/[facility] Immature Gran % 1.90 % [facility] Comment: Immature granulocytes(IG's)percentage and absolute count will include metamyelocytes, myelocytes, and promyelocytes. Blood smears from CBCs yielding IG's will be scanned manually for concordance. If this scan disagrees with the automated IG or if promyelocytes are noted, a manual differential will be performed. Immature Gran Absolute 0.15(H) 0.00 - 0.04 x10(3)/[facility] Blood specimen (specimen) 07/28/2017 3:47 AM EDT 07/28/2017 3:58 AM EDT Narrative Resulting Agency Comment Spec In Lab Sriram Contreras MD HEMATOLOGY ORDERAB LES Performing Organization Address City/State/[facility] Co de Phone Number [facility] [place] [place] [address] * (ABNORMAL) Hemogram (07/28/2017 3:47 AM EDT) White Blood Cell 8.0 4.0 - 9.5 x10(3)/[facility] Red Blood Cell 4.43(L) 4.58 - 5.54 x10(6)/[facility] Hemoglobin 13.4(L) 13.7 - 16.5 gm/dL [facility] Hematocrit 40.3(L) 40.5 - 48.5 % [facility] Mean Cell Volume 91.0 82.9 - 93.1 fL [facility] Mean Cell Hemoglobin 30.2 27.5 - 32.1 pg [facility] Mean Cell Hemoglobin Concentration 33.3 32.0 - 35.7 gm/dL [facility] Platelet 271 145 - 357 x10(3)/mc L [facility] RDW Standard Deviation 45.5(H) 36.0 - 45.0 fL [facility] RDW coefficient of variation 13.8 11.4 - 13.8 % [facility] Mean Platelet Volume 9.9 7.6 - 12.9 fL [facility] NRBC% auto 0.0 % [facility] NRBC Absolute 0.000 0.000 - 0.000 x10(3)/mc L [facility] Blood specimen (specimen) 07/28/2017 3:47 AM EDT 07/28/2017 3:58 AM EDT Narrative Resulting Agency Comment Spec In Lab Sriram Contreras MD HEMATOLOGY ORDERAB LES [facility] [place] [place] [address] * Basic Metabolic Panel (non-fasting) (07/28/2017 3:47 AM EDT) Glucose 110 65 - 199 mg/dL [facility] Comment:Diabetes: >=200 mg/d L plus symptoms Blood Urea Nitrogen 19 10 - 20 mg/dL [facility] Creatinine 0.96 0.80 - 1.50 mg/dL [facility] Comment: Please note that the pediatric reference intervals supplied above were not validated at [facility]. Results from pediatric patients should be interpreted in conjunction to the patient's age, height and muscle mass. Sodium 140 135 - 145 mmol/L [facility] Potassium 3.6 3.5 - 5.0 mmol/L [facility] Comment: Please note: ??Patients with WBC >100,000 may have falsely elevated Potassium levels. ??For accurate Potassium quantification in these patients send serum separator tube (gold top) for subsequent determinations. ??Contact the Clinical Chemistry Laboratory if there are any questions. Chloride 101 98 - 107 mmol/L [facility] Carbon Dioxide 24 22 - 31 mmol/L [facility] Anion Gap 15 5 - 15 mmol/L [facility] Calcium 8.9 8.5 - 10.5 mg/dL [facility] Est Glomerular Filtration Rate [...] the following links into your internet browser. [email or web address] Blood specimen (specimen) 07/28/2017 3:47 AM EDT 07/28/2017 3:58 AM EDT Narrative Resulting Agency Comment Spec In Lab Sriram Contreras MD CHEMISTRY ORDERABL ES Performing Organization Address [facility]/ZIP Co de Phone Number [facility] [place] [place] [address] * POCT Glucose (07/27/2017 11:52 PM EDT) Glucose, POC 94 65 - 199 mg/dL [facility] Comment: Supplemental ranges: <140 mg/dL before meals <180 mg/dL all other times of the day Blood specimen (specimen) 07/27/2017 11:52 PM EDT 07/27/2017 11:52 PM EDT Sriram Contreras MD POINT OF CARE TEST ORDERABLES Performing Organization Address City/[facility]/ZIP Co de Phone Number [facility] [place] [place] [address] * Heparin, low molecular weight assay (07/27/2017 8:19 PM EDT) [facility] Signature Heparin [id number] 0.67 IU/mL [facility] Comment: Guidelines for therapeutic [...] MD HEMATOLOGY ORDERAB LES Performing Organization Address City/[facility]/ZIP Co de Phone Number [facility] [place] [place] [address] * POCT Glucose (07/27/2017 7:35 PM EDT) Glucose, POC 118 65 - 199 mg/dL [facility] Comment: Supplemental ranges: <140 mg/dL before meals <180 mg/dL all other times of the day Blood specimen (specimen) 07/27/2017 7:35 PM EDT 07/27/2017 7:35 PM EDT Sriram Contreras MD POINT OF CARE TEST ORDERABLES Performing Organization Address [facility]/ZIP Co de Phone Number [facility] [place] [place] [address] * POCT Glucose (07/27/2017 3:28 PM EDT) Glucose, POC 104 65 - 199 mg/dL [facility] Comment: Supplemental ranges: <140 mg/dL before meals <180 mg/dL all other times of the day Blood specimen (specimen) 07/27/2017 3:28 PM EDT 07/27/2017 3:28 PM EDT Sriram Contreras MD POINT OF CARE TEST ORDERABLES Performing Organization Address City/[facility]/ZIP Co de Phone Number [facility] [place] [place] [address] * POCT Glucose (07/27/2017 11:06 AM EDT) Glucose, POC 147 65 - 199 mg/dL [facility] Comment: Supplemental ranges: <140 mg/dL before meals <180 mg/dL all other times of the day Blood specimen (specimen) 07/27/2017 11:06 AM EDT 07/27/2017 11:06 AM EDT Sriram Contreras MD POINT OF CARE TEST ORDERABLES [facility] [place] [place] [address] * POCT Glucose (07/27/2017 7:25 AM EDT) Glucose, POC 105 65 - 199 mg/dL [facility] Comment: Supplemental ranges: <140 mg/dL before meals <180 mg/dL all other times of the day Blood specimen (specimen) 07/27/2017 7:25 AM EDT 07/27/2017 7:25 AM EDT Sriram Contreras MD POINT OF CARE TEST ORDERABLES Performing Organization Address City/[facility]/ZIP Co de Phone Number [facility] [place] [address] * Duplex Study for DVT, Bilat legs (07/27/2017 6:59 AM EDT) VB Text Report Department: Vascular Surgery Lab Patient: [id number] (EUSEBIAJOSE) CPT: 35772 ICD10: I26.99 Referring Physician: SRIRAM CONTRERAS ?? [...] MD VASCULAR ORDERABLE S Performing Organization Address [facility] Phone Number [facility] * POCT Glucose (07/27/2017 3:52 AM EDT) Glucose, POC 106 65 - 199 mg/dL [facility] Comment: Supplemental ranges: <140 mg/dL before meals <180 mg/dL all other times of the day Blood specimen (specimen) 07/27/2017 3:52 AM EDT 07/27/2017 3:52 AM EDT Sriram Contreras MD POINT OF CARE TEST ORDERABLES Performing Organization Address [facility] Phone Number [facility] [place] [address] * (ABNORMAL) APTT (07/27/2017 2:45 AM EDT) Partial Thromboplastin Time 92(H) 25 - 35 sec [facility] Comment: The recommended therapeutic range for full dose, unfractionated heparin at [facility] is 80 ? 114 seconds. The use of the anti-Xa (heparin) level rather than the PTT is recommended for monitoring anticoagulation intensity in critically ill patients receiving unfractionated heparin by continuous IV infusion. Blood specimen (specimen) 07/27/2017 2:45 AM EDT 07/27/2017 2:55 AM EDT Narrative Resulting Agency Comment Spec In Lab Sriram Contreras MD HEMATOLOGY ORDERAB LES Performing Organization Address [facility] [[email or web address]] de Phone Number [facility] [place] [place] [address] * (ABNORMAL) Differential, Automated (07/27/2017 2:45 AM EDT) Neutrophil % 67.8 % [facility] Neutrophil Absolute 8.40(H) 1.70 - 6.10 x10(3)/[facility] Lymph % 17.4 % [facility] Lymphocytes Abs 2.2 0.9 - 3.2 x10(3)/[facility] Monocyte % 9.5 % [facility] Monocyte Abs 1.2(H) 0.3 - 0.9 x10(3)/[facility] Eos % 1.4 % [facility] Eosinophils Abs 0.2 0.0 - 0.4 x10(3)/[facility] Basophil % 0.9 % [facility] Baso Absolute 0.1 0.0 - 0.1 x10(3)/[facility] Immature Gran % 3.00 % [facility] Comment: Immature granulocytes(IG's)percentage and absolute count will include metamyelocytes, myelocytes, and promyelocytes. Blood smears from CBCs yielding IG's will be scanned manually for concordance. If this scan disagrees with the automated IG or if promyelocytes are noted, a manual differential will be performed. Immature Gran Absolute 0.37(H) 0.00 - 0.04 x10(3)/[facility] Blood specimen (specimen) 07/27/2017 2:45 AM EDT 07/27/2017 2:55 AM EDT Narrative Resulting Agency Comment Spec In Lab Sriram Contreras MD HEMATOLOGY ORDERAB LES [facility] [place] [place] [address] * (ABNORMAL) Hemogram (07/27/2017 2:45 AM EDT) White Blood Cell 12.4(H) 4.0 - 9.5 x10(3)/[facility] Red Blood Cell 4.66 4.58 - 5.54 x10(6)/mc L [facility] Hemoglobin 14.3 13.7 - 16.5 gm/dL [facility] Hematocrit 42.0 40.5 - 48.5 % [facility] Mean Cell Volume 90.1 82.9 - 93.1 fL [facility] Mean Cell Hemoglobin 30.7 27.5 - 32.1 pg [facility] Mean Cell Hemoglobin Concentration 34.0 32.0 - 35.7 gm/dL [facility] Platelet 288 145 - 357 x10(3)/mc L [facility] RDW Standard Deviation 45.5(H) 36.0 - 45.0 [facility] RDW coefficient of variation 14.0(H) 11.4 - 13.8 % [facility] Mean Platelet Volume 9.7 7.6 - 12.9 [facility] NRBC% auto 0.0 % [facility] NRBC Absolute 0.000 0.000 - 0.000 x10(3)/mc L [facility] Blood specimen (specimen) 07/27/2017 2:45 AM EDT 07/27/2017 2:55 AM EDT Narrative Resulting Agency Comment Spec In Lab Sriram Contreras MD HEMATOLOGY ORDERAB LES Performing Organization Address City/State/[facility] Co de Phone Number [facility] [place] [address] * (ABNORMAL) Basic Metabolic Panel (non-fasting) (07/27/2017 2:45 AM EDT) Glucose 169 65 - 199 mg/dL [facility] Comment:Diabetes: >=200 mg/d L plus symptoms Blood Urea Nitrogen 22(H) 10 - 20 mg/dL [facility] Creatinine 0.92 0.80 - 1.50 mg/dL [facility] Comment: Please note that the pediatric reference intervals supplied above were not validated at [facility]. Results from pediatric patients should be interpreted in conjunction to the patient's age, height and muscle mass. Sodium 139 135 - 145 mmol/L [facility] Potassium 3.7 3.5 - 5.0 mmol/L [facility] Comment: Please note: ??Patients with WBC >100,000 may have falsely elevated Potassium levels. ??For accurate Potassium quantification in these patients send serum separator tube (gold top) for subsequent determinations. ??Contact the Clinical Chemistry Laboratory if there are any questions. Chloride 100 98 - 107 mmol/L [facility] Carbon Dioxide 23 22 - 31 mmol/L [facility] Anion Gap 16(H) 5 - 15 mmol/L [facility] Calcium 9.4 8.5 - 10.5 mg/dL [facility] Est Glomerular Filtration Rate [...] the following links into your internet browser. [email or web address] Blood specimen (specimen) 07/27/2017 2:45 AM EDT 07/27/2017 2:55 AM EDT Narrative Resulting Agency Comment Spec In Lab Sriram Contreras MD CHEMISTRY ORDERABL ES [facility] [place] [place] [address] * Phosphorus (07/27/2017 2:45 AM EDT) Phosphorus 4.3 2.5 - 4.5 mg/dL [facility] Blood specimen (specimen) 07/27/2017 2:45 AM EDT 07/27/2017 2:55 AM EDT Narrative Resulting Agency Comment Spec In Lab Sriram Contreras MD CHEMISTRY ORDERABL ES Performing Organization Address [facility] [[email or web address]] de Phone Number [facility] [place] [address] * Magnesium (07/27/2017 2:45 AM EDT) [facility] Magnesium 0.79 0.69 - 1.07 mmol/L [facility] Blood specimen (specimen) 07/27/2017 2:45 AM EDT 07/27/2017 2:55 AM EDT Narrative Resulting Agency Comment Spec In Lab Sriram Contreras MD CHEMISTRY ORDERABL ES Performing Organization Address [facility] de Phone Number [facility] [place] [place] [address] * POCT Glucose (07/27/2017 12:02 AM EDT) [facility] Glucose, POC 112 65 - 199 mg/dL [facility] Comment: Supplemental ranges: <140 mg/dL before meals <180 mg/dL all other times of the day Blood specimen (specimen) 07/27/2017 12:02 AM EDT 07/27/2017 12:02 AM EDT Sriram Contreras MD POINT OF CARE TEST ORDERABLES Performing Organization Address [facility] de Phone Number [facility] [place] [place] [address] * (ABNORMAL) APTT (07/26/2017 9:29 PM EDT) [facility] Partial Thromboplastin Time 90(H) 25 - 35 sec [facility] Comment: The recommended therapeutic range for full dose, unfractionated heparin at [facility] is 80 ? 114 seconds. The use of the anti-Xa (heparin) level rather than the PTT is recommended for monitoring anticoagulation intensity in critically ill patients receiving unfractionated heparin by continuous IV infusion. Blood specimen (specimen) 07/26/2017 9:29 PM EDT 07/26/2017 9:32 PM EDT Narrative Resulting Agency Comment Spec In Lab Sriram Contreras MD HEMATOLOGY ORDERAB LES Performing Organization Address City/[facility]/ZIP Co de Phone Number [facility] [place] [address] * POCT Glucose (07/26/2017 8:14 PM EDT) Glucose, POC 116 65 - 199 mg/dL [facility] Comment: Supplemental ranges: <140 mg/dL before meals <180 mg/dL all other times of the day Blood specimen (specimen) 07/26/2017 8:14 PM EDT 07/26/2017 8:14 PM EDT Sriram Contreras MD POINT OF CARE TEST ORDERABLES Performing Organization Address [facility] Co de Phone Number [facility] [place] [place] [address] * POCT Glucose (07/26/2017 3:20 PM EDT) Glucose, POC 125 65 - 199 mg/dL [facility] Comment: Supplemental ranges: <140 mg/dL before meals <180 mg/dL all other times of the day Blood specimen (specimen) 07/26/2017 3:20 PM EDT 07/26/2017 3:20 PM EDT Sriram Contreras MD POINT OF CARE TEST ORDERABLES Performing Organization Address [facility] Co de Phone Number [facility] [place] [place] [address] * (ABNORMAL) APTT (07/26/2017 1:51 PM EDT) Partial Thromboplastin Time 88(H) 25 - 35 sec [facility] Comment: The recommended therapeutic range for full dose, unfractionated heparin at [facility] is 80 ? 114 seconds. The use of the anti-Xa (heparin) level rather than the PTT is recommended for monitoring anticoagulation intensity in critically ill patients receiving unfractionated heparin by continuous IV infusion. Blood specimen (specimen) 07/26/2017 1:51 PM EDT 07/26/2017 1:55 PM EDT Narrative Resulting Agency Comment Spec In Lab Sriram Contreras MD HEMATOLOGY ORDERAB LES Performing Organization Address [facility] Co de Phone Number [facility] [place] [place] [address] * POCT Glucose (07/26/2017 11:12 AM EDT) Glucose, POC 120 65 - 199 mg/dL [facility] Comment: Supplemental ranges: <140 mg/dL before meals <180 mg/dL all other times of the day Blood specimen (specimen) 07/26/2017 11:12 AM EDT 07/26/2017 11:12 AM EDT Sriram Contreras MD POINT OF CARE TEST ORDERABLES Performing Organization Address [facility] de Phone Number [facility] [place] [place] [address] * POCT Glucose (07/26/2017 7:35 AM EDT) Glucose, POC 115 65 - 199 mg/dL [facility] Comment: Supplemental ranges: <140 mg/dL before meals <180 mg/dL all other times of the day Blood specimen (specimen) 07/26/2017 7:35 AM EDT 07/26/2017 7:35 AM EDT Sriram Contreras MD POINT OF CARE TEST ORDERABLES Performing Organization Address [facility] [[email or web address]] de Phone Number [facility] [place] [place] [address] * (ABNORMAL) APTT (07/26/2017 3:30 AM EDT) Partial Thromboplastin Time 60(H) 25 - 35 sec [facility] Comment: The recommended therapeutic range for full dose, unfractionated heparin at [facility] is 80 ? 114 seconds. The use of the anti-Xa (heparin) level rather than the PTT is recommended for monitoring anticoagulation intensity in critically ill patients receiving unfractionated heparin by continuous IV infusion. Blood specimen (specimen) 07/26/2017 3:30 AM EDT 07/26/2017 4:11 AM EDT Narrative Resulting Agency Comment Spec In Lab Sriram Contreras MD HEMATOLOGY ORDERAB LES [facility] [place] [place] [address] * (ABNORMAL) Differential, Automated (07/26/2017 3:30 AM EDT) Neutrophil % 68.7 % [facility] Neutrophil Absolute 8.50(H) 1.70 - 6.10 x10(3)/mc L [facility] Lymph % 14.3 % [facility] Lymphocytes Abs 1.8 0.9 - 3.2 x10(3)/mc L [facility] Monocyte % 9.6 % [facility] Monocyte Abs 1.2(H) 0.3 - 0.9 x10(3)/mc L [facility] Eos % 1.3 % [facility] Eosinophils Abs 0.2 0.0 - 0.4 x10(3)/mc L [facility] Basophil % 1.4 % [facility] Baso Absolute 0.2(H) 0.0 - 0.1 x10(3)/mc L [facility] Immature Gran % 4.70 % [facility] Comment: Immature granulocytes(IG's)percentage and absolute count will include metamyelocytes, myelocytes, and promyelocytes. Blood smears from CBCs yielding IG's will be scanned manually for concordance. If this scan disagrees with the automated IG or if promyelocytes are noted, a manual differential will be performed. Immature Gran Absolute 0.58(H) 0.00 - 0.04 x10(3)/mc L [facility] Blood specimen (specimen) 07/26/2017 3:30 AM EDT 07/26/2017 4:11 AM EDT Narrative Resulting Agency Comment Spec In Lab Sriram Contreras MD HEMATOLOGY ORDERAB LES Performing Organization Address City/State/[facility] Co de Phone Number [facility] [place] [address] * (ABNORMAL) Hemogram (07/26/2017 3:30 AM EDT) White Blood Cell 12.4(H) 4.0 - 9.5 x10(3)/[facility] LABORATORY Red Blood Cell 4.87 4.58 - 5.54 x10(6)/[facility]ATORY Hemoglobin 15.2 13.7 - 16.5 gm/dL [facility] Hematocrit 44.1 40.5 - 48.5 % [facility] Mean Cell Volume 90.6 82.9 - 93.1 fL [facility] Mean Cell Hemoglobin 31.2 27.5 - 32.1 pg [facility] Mean Cell Hemoglobin Concentration 34.5 32.0 - 35.7 gm/dL [facility] Platelet 253 145 - 357 x10(3)/[facility] LABORATORY RDW Standard Deviation 44.8 36.0 - 45.0 [facility] LAB[facility]ATORY RDW coefficient of variation 13.6 11.4 - 13.8 % [facility] Mean Platelet Volume 10.4 7.6 - 12.9 fL [facility] NRBC% auto 0.2 % [facility] NRBC Absolute 0.020(H) 0.000 - 0.000 x10(3)/ L [facility] Blood specimen (specimen) 07/26/2017 3:30 AM EDT 07/26/2017 4:11 AM EDT Narrative Resulting Agency Comment Spec In Lab Sriram Conterras MD HEMATOLOGY ORDERAB LES [facility] [place] [place] [address] * Basic Metabolic Panel (non-fasting) (07/26/2017 3:30 AM EDT) Glucose 123 65 - 199 mg/dL [facility] Comment:Diabetes: >=200 mg/d L plus symptoms Blood Urea Nitrogen 18 10 - 20 mg/dL [facility] Creatinine 0.85 0.80 - 1.50 mg/dL [facility] Comment: Please note that the pediatric reference intervals supplied above were not validated at [facility]. Results from pediatric patients should be interpreted in conjunction to the patient's age, height and muscle mass. Sodium 141 135 - 145 mmol/L [facility] Potassium 3.8 3.5 - 5.0 mmol/L [facility] Comment: Please note: ??Patients with WBC >100,000 may have falsely elevated Potassium levels. ??For accurate Potassium quantification in these patients send serum separator tube (gold top) for subsequent determinations. ??Contact the Clinical Chemistry Laboratory if there are any questions. Chloride 102 98 - 107 mmol/L [facility] Carbon Dioxide 25 22 - 31 mmol/L [facility] Anion Gap 14 5 - 15 mmol/L [facility] Calcium 9.2 8.5 - 10.5 mg/dL [facility] Est Glomerular Filtration Rate [...] the following links into your internet browser. [email or web address] Blood specimen (specimen) 07/26/2017 3:30 AM EDT 07/26/2017 4:11 AM EDT Narrative Resulting Agency Comment Spec In Lab Sriram Contreras MD CHEMISTRY ORDERABL ES Performing Organization Address [facility] [[email or web address]] de Phone Number [facility] [place] [address] * Prealbumin (07/26/2017 3:30 AM EDT) Prealbumin 26 20 - 40 mg/dL [facility] Comment: Prealbumin levels are generally lower in the pediatric population; adult concentrations are usually attained near puberty. Blood specimen (specimen) 07/26/2017 3:30 AM EDT 07/26/2017 4:11 AM EDT Narrative Resulting Agency Comment Spec In Lab Sriram Contreras MD CHEMISTRY ORDERABL ES Performing Organization Address [facility] Co de Phone Number [facility] [place] [address] * POCT Glucose (07/26/2017 3:27 AM EDT) Glucose, POC 116 65 - 199 mg/dL [facility] Comment: Supplemental ranges: <140 mg/dL before meals <180 mg/dL all other times of the day Blood specimen (specimen) 07/26/2017 3:27 AM EDT 07/26/2017 3:27 AM EDT Sriram Contreras MD POINT OF CARE TEST ORDERABLES Performing Organization Address [facility] [[email or web address]] de Phone Number [facility] [place] [address] * POCT Glucose (07/25/2017 7:50 PM EDT) Glucose, POC 109 65 - 199 mg/dL [facility] Comment: Supplemental ranges: <140 mg/dL before meals <180 mg/dL all other times of the day Blood specimen (specimen) 07/25/2017 7:50 PM EDT 07/25/2017 7:50 PM EDT Sriram Contreras MD POINT OF CARE TEST ORDERABLES Performing Organization Address [facility] Co de Phone Number [facility] [place] [address] * (ABNORMAL) APTT (07/25/2017 5:51 PM EDT) Partial Thromboplastin Time 112(H) 25 - 35 sec [facility] Comment: The recommended therapeutic range for full dose, unfractionated heparin at [facility] is 80 ? 114 seconds. The use of the anti-Xa (heparin) level rather than the PTT is recommended for monitoring anticoagulation intensity in critically ill patients receiving unfractionated heparin by continuous IV infusion. Blood specimen (specimen) 07/25/2017 5:51 PM EDT 07/25/2017 5:55 PM EDT Narrative Resulting Agency Comment Spec In Lab Sriram Contreras MD HEMATOLOGY ORDERAB LES Performing Organization Address [facility] Co de Phone Number [facility] [place] [address] * POCT Glucose (07/25/2017 4:01 PM EDT) Glucose, POC 109 65 - 199 mg/dL [facility] Comment: Supplemental ranges: <140 mg/dL before meals <180 mg/dL all other times of the day Blood specimen (specimen) 07/25/2017 4:01 PM EDT 07/25/2017 4:01 PM EDT Sriram Contreras MD POINT OF CARE TEST ORDERABLES Performing Organization Address [facility] Co de Phone Number [facility] [place] [address] * POCT Glucose (07/25/2017 12:10 PM EDT) Glucose, POC 117 65 - 199 mg/dL [facility] Comment: Supplemental ranges: <140 mg/dL before meals <180 mg/dL all other times of the day Blood specimen (specimen) 07/25/2017 12:10 PM EDT 07/25/2017 12:10 PM EDT Sriram Contreras MD POINT OF CARE TEST ORDERABLES Performing Organization Address [facility] [[email or web address]] de Phone Number [facility] [place] [address] * Potassium (07/25/2017 11:00 AM EDT) Potassium 3.9 3.5 - 5.0 mmol/L [facility] Comment: Please note: ??Patients [...] MD CHEMISTRY ORDERABL ES Performing Organization Address [facility] de Phone Number [facility] [place] [address] * (ABNORMAL) APTT (07/25/2017 11:00 AM EDT) Partial Thromboplastin Time 102(H) 25 - 35 sec [facility] Comment: The recommended therapeutic range for full dose, unfractionated heparin at [facility] is 80 ? 114 seconds. The use of the anti-Xa (heparin) level rather than the PTT is recommended for monitoring anticoagulation intensity in critically ill patients receiving unfractionated heparin by continuous IV infusion. Blood specimen (specimen) 07/25/2017 11:00 AM EDT 07/25/2017 11:05 AM EDT Narrative Resulting Agency Comment Spec In Lab Sriram Contreras MD HEMATOLOGY ORDERAB LES Performing Organization Address City/[facility]/ZIP Co de Phone Number [facility] [place] [address] * POCT Glucose (07/25/2017 8:27 AM EDT) [facility] Glucose, POC 124 65 - 199 mg/dL [facility] Comment: Supplemental ranges: <140 mg/dL before meals <180 mg/dL all other times of the day Blood specimen (specimen) 07/25/2017 8:27 AM EDT 07/25/2017 8:27 AM EDT Sriram Contreras MD POINT OF CARE TEST ORDERABLES Performing Organization Address [facility] [[email or web address]] de Phone Number [facility] [place] [address] * (ABNORMAL) BLOOD GAS 2 ARTERIAL (07/25/2017 6:19 AM EDT) [facility] pH, Arterial 7.51(H) 7.35 - 7.45 [facility] PCO2, Arterial 29(L) 35 - 45 mmHg [facility] PO2, Arterial 59(L) 85 - 104 mmHg [facility] Bicarbonate, Arterial 22.2 20.0 - 26.0 mmol/L [facility] Base Excess, Arterial -0.9 -3.0 - 3.0 mmol/L [facility] Hgb Blood Gas 14.6 13.7 - 16.5 gm/dL [facility] Oxyhemoglobin, Arterial 91.1(L) 94.0 - 97.0 % [facility] Carboxyhemoglob in, Arterial 0.3 % [facility] Comment: Nonsmokers: 0.5-1.5% COHB Smokers: Variable, but usually less than 10% Toxic: 20-30% COHB Lethal: Greater than 60% COHB Methemoglobin, Arterial 0.6 <=1.5 % [facility] Na Whole Blood 141 135 - 145 mmol/L [facility] K Whole Blood 3.8 3.5 - 5.0 mmol/L [facility] Comment: Please note: Patients with WBC >100,000 may have falsely elevated Potassium levels. Contact the Clinical Chemistry Laboratory if there are any questions. ICa Whole Blood 1.17 1.15 - 1.33 mmol/L [facility] Comment: Note: ??Total bilirubin higher than 20 mg/dL may lead to falsely low ionized calcium. CL Whole Blood 108(H) 98 - 107 mmol/L [facility] Gluc Whole Bld 136 65 - 199 mg/dL [facility] Comment:Diabetes: >=200 mg/d L plus symptoms. Lactate WB 1.5 0.5 - 2.2 mmol/L [facility] Blood specimen (specimen) 07/25/2017 6:19 AM EDT 07/25/2017 6:19 AM EDT Sriram Contreras MD POINT OF CARE TEST ORDERABLES Performing Organization Address City/[facility]/ZIP Co de Phone Number [facility] [place] [address] * POCT Glucose (07/25/2017 4:41 AM EDT) Glucose, POC 101 65 - 199 mg/dL [facility] Comment: Supplemental ranges: <140 mg/dL before meals <180 mg/dL all other times of the day Blood specimen (specimen) 07/25/2017 4:41 AM EDT 07/25/2017 4:41 AM EDT Sriram Contreras MD POINT OF CARE TEST ORDERABLES [facility] [place] [place] [address] * Magnesium (07/25/2017 4:37 AM EDT) Magnesium 0.83 0.69 - 1.07 mmol/L [facility] Blood specimen (specimen) Venous Draw / Unknown 07/25/2017 4:37 AM EDT 07/25/2017 4:50 AM EDT Narrative Resulting Agency Comment Spec In Lab Sriram Contreras MD CHEMISTRY ORDERABL ES [facility] [place] [place] [address] * (ABNORMAL) Differential, Automated (07/25/2017 4:37 AM EDT) Neutrophil % 68.4 % [facility] Neutrophil Absolute 8.77(H) 1.70 - 6.10 x10(3)/ L [facility] Lymph % 15.0 % [facility] Lymphocytes Abs 1.9 0.9 - 3.2 x10(3)/ L [facility] Monocyte % 8.9 % [facility] Monocyte Abs 1.1(H) 0.3 - 0.9 x10(3)/ L [facility] Eos % 1.9 % [facility] Eosinophils Abs 0.2 0.0 - 0.4 x10(3)/[facility] LABORATORY Basophil % 1.0 % [facility] Baso Absolute 0.1 0.0 - 0.1 x10(3)/mc L [facility] Immature Gran % 4.80 % [facility] Comment: Immature granulocytes(IG's)percentage and absolute count will include metamyelocytes, myelocytes, and promyelocytes. Blood smears from CBCs yielding IG's will be scanned manually for concordance. If this scan disagrees with the automated IG or if promyelocytes are noted, a manual differential will be performed. Immature Gran Absolute 0.62(H) 0.00 - 0.04 x10(3)/mc L [facility] Blood specimen (specimen) 07/25/2017 4:37 AM EDT 07/25/2017 4:48 AM EDT Narrative Resulting Agency Comment Spec In Lab Sriram Contreras MD HEMATOLOGY ORDERAB LES Performing Organization Address City/[facility]/ZIP Co de Phone Number [facility] [place] [address] * (ABNORMAL) Hemogram (07/25/2017 4:37 AM EDT) White Blood Cell 12.8(H) 4.0 - 9.5 x10(3)/mc L [facility] Red Blood Cell 4.53(L) 4.58 - 5.54 x10(6)/mc L [facility] Hemoglobin 14.0 13.7 - 16.5 gm/dL [facility] Hematocrit 40.3(L) 40.5 - 48.5 % [facility] Mean Cell Volume 89.0 82.9 - 93.1 fL [facility] Mean Cell Hemoglobin 30.9 27.5 - 32.1 pg [facility] Mean Cell Hemoglobin Concentration 34.7 32.0 - 35.7 gm/dL [facility] Platelet 241 145 - 357 x10(3)/mc L [facility] RDW Standard Deviation 43.1 36.0 - 45.0 [facility] LABORATORY RDW coefficient of variation 13.2 11.4 - 13.8 % [facility] Mean Platelet Volume 9.9 7.6 - 12.9 fL [facility] NRBC% auto 0.0 % [facility] NRBC Absolute 0.000 0.000 - 0.000 x10(3)/mc L [facility] Blood specimen (specimen) 07/25/2017 4:37 AM EDT 07/25/2017 4:48 AM EDT Narrative Resulting Agency Comment Spec In Lab Sriram Contreras MD HEMATOLOGY ORDERAB LES Performing Organization Address City/[facility]/ZIP Co de Phone Number [facility] [place] [address] * Basic Metabolic Panel (non-fasting) (07/25/2017 4:37 AM EDT) Glucose 120 65 - 199 mg/dL [facility] Comment:Diabetes: >=200 mg/d L plus symptoms Blood Urea Nitrogen 14 10 - 20 mg/dL [facility] Creatinine 0.81 0.80 - 1.50 mg/dL [facility] Comment: Please note that the pediatric reference intervals supplied above were not validated at [facility]. Results from pediatric patients should be interpreted in conjunction to the patient's age, height and muscle mass. Sodium 140 135 - 145 mmol/L [facility] Potassium 3.6 3.5 - 5.0 mmol/L [facility] Comment: Please note: ??Patients with WBC >100,000 may have falsely elevated Potassium levels. ??For accurate Potassium quantification in these patients send serum separator tube (gold top) for subsequent determinations. ??Contact the Clinical Chemistry Laboratory if there are any questions. Chloride 103 98 - 107 mmol/L [facility] Carbon Dioxide 24 22 - 31 mmol/L [facility] Anion Gap 13 5 - 15 mmol/L [facility] Calcium 8.8 8.5 - 10.5 mg/dL [facility] Est Glomerular Filtration Rate [...] the following links into your internet browser. [email or web address] Blood specimen (specimen) 07/25/2017 4:37 AM EDT 07/25/2017 4:48 AM EDT Narrative Resulting Agency Comment Spec In Lab Sriram Contreras MD CHEMISTRY ORDERABL ES [facility] [place] [place] [address] * (ABNORMAL) APTT (07/25/2017 4:37 AM EDT) Partial Thromboplastin Time 122(H) 25 - 35 sec [facility] Comment: The recommended therapeutic range for full dose, unfractionated heparin at [facility] is 80 ? 114 seconds. The use of the anti-Xa (heparin) level rather than the PTT is recommended for monitoring anticoagulation intensity in critically ill patients receiving unfractionated heparin by continuous IV infusion. Blood specimen (specimen) 07/25/2017 4:37 AM EDT 07/25/2017 4:48 AM EDT Narrative Resulting Agency Comment Spec In Lab Sriram Contreras MD HEMATOLOGY ORDERAB LES Performing Organization Address [facility] Co de Phone Number [facility] [place] [address] * POCT Glucose (07/25/2017 12:10 AM EDT) Glucose, POC 108 65 - 199 mg/dL [facility] Comment: Supplemental ranges: <140 mg/dL before meals <180 mg/dL all other times of the day Blood specimen (specimen) 07/25/2017 12:10 AM EDT 07/25/2017 12:10 AM EDT Sriram Contreras MD POINT OF CARE TEST ORDERABLES Performing Organization Address [facility] Co de Phone Number [facility] [place] [address] * POCT Glucose (07/24/2017 8:05 PM EDT) Glucose, POC 112 65 - 199 mg/dL [facility] Comment: Supplemental ranges: <140 mg/dL before meals <180 mg/dL all other times of the day Blood specimen (specimen) 07/24/2017 8:05 PM EDT 07/24/2017 8:05 PM EDT Sriram Contreras MD POINT OF CARE TEST ORDERABLES Performing Organization Address City/[facility] Co de Phone Number [facility] [place] [address] * POCT Glucose (07/24/2017 8:04 PM EDT) Glucose, POC 106 65 - 199 mg/dL [facility] Comment: Supplemental ranges: <140 mg/dL before meals <180 mg/dL all other times of the day Blood specimen (specimen) 07/24/2017 8:04 PM EDT 07/24/2017 8:04 PM EDT Sriram Contreras MD POINT OF CARE TEST ORDERABLES Performing Organization Address [facility] Co de Phone Number [facility] [place] [address] * POCT Glucose (07/24/2017 3:42 PM EDT) Glucose, POC 108 65 - 199 mg/dL [facility] Comment: Supplemental ranges: <140 mg/dL before meals <180 mg/dL all other times of the day Blood specimen (specimen) 07/24/2017 3:42 PM EDT 07/24/2017 3:42 PM EDT Sriram Contreras MD POINT OF CARE TEST ORDERABLES Performing Organization Address City/[facility] Co de Phone Number [facility] [place] [address] * POCT Glucose (07/24/2017 11:42 AM EDT) Glucose, POC 102 65 - 199 mg/dL [facility] Comment: Supplemental ranges: <140 mg/dL before meals <180 mg/dL all other times of the day Blood specimen (specimen) 07/24/2017 11:42 AM EDT 07/24/2017 11:42 AM EDT Sriram Contreras MD POINT OF CARE TEST ORDERABLES [facility] [place] [place] [address] * POCT Glucose (07/24/2017 8:00 AM EDT) Glucose, POC 107 65 - 199 mg/dL [facility] Comment: Supplemental ranges: <140 mg/dL before meals <180 mg/dL all other times of the day Blood specimen (specimen) 07/24/2017 8:00 AM EDT 07/24/2017 8:00 AM EDT Sriram Contreras MD POINT OF CARE TEST ORDERABLES Performing Organization Address [facility] Co de Phone Number [facility] [place] [address] * (ABNORMAL) BLOOD GAS 2 ARTERIAL (07/24/2017 7:28 AM EDT) [facility] pH, Arterial 7.44 7.35 - 7.45 [facility] PCO2, Arterial 39 35 - 45 mmHg [facility] PO2, Arterial 67(L) 85 - 104 mmHg [facility] Bicarbonate, Arterial 25.5 20.0 - 26.0 mmol/L [facility] Base Excess, Arterial 1.2 -3.0 - 3.0 mmol/L [facility] Hgb Blood Gas 13.8 13.7 - 16.5 gm/dL [facility] Oxyhemoglobin, Arterial 92.8(L) 94.0 - 97.0 % [facility] Carboxyhemoglob in, Arterial 0.3 % [facility] Comment: Nonsmokers: 0.5-1.5% COHB Smokers: Variable, but usually less than 10% Toxic: 20-30% COHB Lethal: Greater than 60% COHB Methemoglobin, Arterial 0.6 <=1.5 % [facility] Na Whole Blood 139 135 - 145 mmol/L [facility] K Whole Blood 4.0 3.5 - 5.0 mmol/L [facility] Comment: Please note: Patients with WBC >100,000 may have falsely elevated Potassium levels. Contact the Clinical Chemistry Laboratory if there are any questions. ICa Whole Blood 1.21 1.15 - 1.33 mmol/L [facility] Comment: Note: ??Total bilirubin higher than 20 mg/dL may lead to falsely low ionized calcium. CL Whole Blood 105 98 - 107 mmol/L [facility] Gluc Whole Bld 123 65 - 199 mg/dL [facility] LABORATORY Comment:Diabetes: >=200 mg/d L plus symptoms. Lactate WB 1.7 0.5 - 2.2 mmol/L [facility] FIO2 Art 30 % [facility] PF Ratio Art 223 [facility] Blood specimen (specimen) 07/24/2017 7:28 AM EDT 07/24/2017 7:28 AM EDT Sriram Contreras MD POINT OF CARE TEST ORDERABLES Performing Organization Address City/[facility]/ZIP Co de Phone Number [facility] [place] [place] [address] * Potassium (07/24/2017 7:28 AM EDT) Potassium 4.1 3.5 - 5.0 mmol/L [facility] Comment: Please note: ??Patients [...] MD CHEMISTRY ORDERABL ES Performing Organization Address City/[facility]/ZIP Co de Phone Number [facility] [place] [place] [address] * POCT Glucose (07/24/2017 3:42 AM EDT) [facility] Glucose, POC 91 65 - 199 mg/dL [facility] Comment: Supplemental ranges: <140 mg/dL before meals <180 mg/dL all other times of the day Blood specimen (specimen) 07/24/2017 3:42 AM EDT 07/24/2017 3:42 AM EDT Sriram Contreras MD POINT OF CARE TEST ORDERABLES Performing Organization Address [facility]/ZIP Co de Phone Number [facility] [place] [place] [address] * Scan, Peripheral Blood (07/24/2017 1:00 AM EDT) [facility] Plat estimate Normal [facility] RBC Morphology Normal [facility] Blood specimen (specimen) Venous Draw / Unknown 07/24/2017 1:00 AM EDT 07/24/2017 1:15 AM EDT Narrative Resulting Agency Comment Spec In Lab Sriram Contreras MD HEMATOLOGY ORDERAB LES Performing Organization Address [facility] Co de Phone Number [facility] [place] [place] [address] * (ABNORMAL) Differential, Automated (07/24/2017 1:00 AM EDT) [facility] Neutrophil % 69.9 % [facility] Neutrophil Absolute 9.34(H) 1.70 - 6.10 x10(3)/mc L [facility] Lymph % 13.7 % [facility] Lymphocytes Abs 1.8 0.9 - 3.2 x10(3)/mc L [facility] Monocyte % 8.1 % [facility] Monocyte Abs 1.1(H) 0.3 - 0.9 x10(3)/mc L [facility] Eos % 2.2 % [facility] Eosinophils Abs 0.3 0.0 - 0.4 x10(3)/[facility]ORY Basophil % 0.7 % [facility] Baso Absolute 0.1 0.0 - 0.1 x10(3)/[facility] Immature Gran % 5.40 % [facility] Comment: Immature granulocytes(IG's)percentage and absolute count will include metamyelocytes, myelocytes, and promyelocytes. Blood smears from CBCs yielding IG's will be scanned manually for concordance. If this scan disagrees with the automated IG or if promyelocytes are noted, a manual differential will be performed. Immature Gran Absolute 0.72(H) 0.00 - 0.04 x10(3)/[facility] Blood specimen (specimen) 07/24/2017 1:00 AM EDT 07/24/2017 1:15 AM EDT Narrative Resulting Agency Comment Spec In Lab Sriram Contreras MD HEMATOLOGY ORDERAB LES Performing Organization Address City/State/[facility] Co de Phone Number [facility] [place] [phone] * (ABNORMAL) Hemogram (07/24/2017 1:00 AM EDT) White Blood Cell 13.4(H) 4.0 - 9.5 x10(3)/[facility] Red Blood Cell 4.13(L) 4.58 - 5.54 x10(6)/[facility] Hemoglobin 12.7(L) 13.7 - 16.5 gm/dL [facility] Hematocrit 38.0(L) 40.5 - 48.5 % [facility] Mean Cell Volume 92.0 82.9 - 93.1 fL [facility] Mean Cell Hemoglobin 30.8 27.5 - 32.1 pg [facility] Mean Cell Hemoglobin Concentration 33.4 32.0 - 35.7 gm/dL [facility] Platelet 201 145 - 357 x10(3)/[facility] RDW Standard Deviation 45.5(H) 36.0 - 45.0 fL [facility] RDW coefficient of variation 13.4 11.4 - 13.8 % [facility] Mean Platelet Volume 10.1 7.6 - 12.9 [facility] NRBC% auto 0.0 % [facility] NRBC Absolute 0.000 0.000 - 0.000 x10(3)/mc L [facility] Blood specimen (specimen) 07/24/2017 1:00 AM EDT 07/24/2017 1:15 AM EDT Narrative Resulting Agency Comment Spec In Lab Sriram Contreras MD HEMATOLOGY ORDERAB LES Performing Organization Address [facility] Co de Phone Number [facility] [place] [place] [address] * (ABNORMAL) APTT (07/24/2017 1:00 AM EDT) Partial Thromboplastin Time 102(H) 25 - 35 sec [facility] Comment: The recommended therapeutic range for full dose, unfractionated heparin at [facility] is 80 ? 114 seconds. The use of the anti-Xa (heparin) level rather than the PTT is recommended for monitoring anticoagulation intensity in critically ill patients receiving unfractionated heparin by continuous IV infusion. Blood specimen (specimen) 07/24/2017 1:00 AM EDT 07/24/2017 1:14 AM EDT Narrative Resulting Agency Comment Spec In Lab Sriram Contreras MD HEMATOLOGY ORDERAB LES Performing Organization Address [facility]/ZIP Co de Phone Number [facility] [place] [place] [address] * (ABNORMAL) Basic Metabolic Panel (non-fasting) (07/24/2017 1:00 AM EDT) Pathologist [facility] Glucose 103 65 - 199 mg/dL [facility] Comment:Diabetes: >=200 mg/d L plus symptoms Blood Urea Nitrogen 17 10 - 20 mg/dL [facility] Creatinine 0.70(L) 0.80 - 1.50 mg/dL [facility] Comment: Please note that the pediatric reference intervals supplied above were not validated at [facility]. Results from pediatric patients should be interpreted in conjunction to the patient's age, height and muscle mass. Sodium 143 135 - 145 mmol/L [facility] Potassium 4.0 3.5 - 5.0 mmol/L [facility] Comment: Please note: ??Patients with WBC >100,000 may have falsely elevated Potassium levels. ??For accurate Potassium quantification in these patients send serum separator tube (gold top) for subsequent determinations. ??Contact the Clinical Chemistry Laboratory if there are any questions. Chloride 104 98 - 107 mmol/L [facility] Carbon Dioxide 27 22 - 31 mmol/L [facility] Anion Gap 12 5 - 15 mmol/L [facility] Calcium 8.7 8.5 - 10.5 mg/dL [facility] Est Glomerular Filtration Rate [...] the following links into your internet browser. [email or web address] Blood specimen (specimen) 07/24/2017 1:00 AM EDT 07/24/2017 1:14 AM EDT Narrative Resulting Agency Comment Spec In Lab Sriram Contreras MD CHEMISTRY ORDERABL ES [facility] [place] [place] [address] * POCT Glucose (07/23/2017 11:53 PM EDT) Glucose, POC 95 65 - 199 mg/dL [facility] Comment: Supplemental ranges: <140 mg/dL before meals <180 mg/dL all other times of the day Blood specimen (specimen) 07/23/2017 11:53 PM EDT 07/23/2017 11:53 PM EDT Sriram Contreras MD POINT OF CARE TEST ORDERABLES Performing Organization Address City/[facility]/ZIP Co de Phone Number [facility] [place] [place] [address] * POCT Glucose (07/23/2017 7:52 PM EDT) Glucose, POC 91 65 - 199 mg/dL [facility] Comment: Supplemental ranges: <140 mg/dL before meals <180 mg/dL all other times of the day Blood specimen (specimen) 07/23/2017 7:52 PM EDT 07/23/2017 7:52 PM EDT Sriram Contreras MD POINT OF CARE TEST ORDERABLES Performing Organization Address City/[facility]/ZIP Co de Phone Number [facility] [place] [place] [address] * POCT Glucose (07/23/2017 2:56 PM EDT) Glucose, POC 115 65 - 199 mg/dL [facility] Comment: Supplemental ranges: <140 mg/dL before meals <180 mg/dL all other times of the day Blood specimen (specimen) 07/23/2017 2:56 PM EDT 07/23/2017 2:56 PM EDT Sriram Contreras MD POINT OF CARE TEST ORDERABLES Performing Organization Address City/[facility] Co de Phone Number [facility] [place] [address] * (ABNORMAL) APTT (07/23/2017 2:55 PM EDT) Partial Thromboplastin Time 101(H) 25 - 35 sec [facility] Comment: The recommended therapeutic range for full dose, unfractionated heparin at [facility] is 80 ? 114 seconds. The use of the anti-Xa (heparin) level rather than the PTT is recommended for monitoring anticoagulation intensity in critically ill patients receiving unfractionated heparin by continuous IV infusion. Blood specimen (specimen) 07/23/2017 2:55 PM EDT 07/23/2017 3:04 PM EDT Narrative Resulting Agency Comment Spec In Lab Sriram Contreras MD HEMATOLOGY ORDERAB LES Performing Organization Address [facility] Co de Phone Number [facility] [place] [address] * POCT Glucose (07/23/2017 12:07 PM EDT) Glucose, POC 97 65 - 199 mg/dL [facility] Comment: Supplemental ranges: <140 mg/dL before meals <180 mg/dL all other times of the day Blood specimen (specimen) 07/23/2017 12:07 PM EDT 07/23/2017 12:07 PM EDT Sriram Contreras MD POINT OF CARE TEST ORDERABLES Performing Organization Address [facility] Co de Phone Number [facility] [place] [place] [address] * (ABNORMAL) APTT (07/23/2017 8:27 AM EDT) Partial Thromboplastin Time 95(H) 25 - 35 sec [facility] Comment: The recommended therapeutic range for full dose, unfractionated heparin at [facility] is 80 ? 114 seconds. The use of the anti-Xa (heparin) level rather than the PTT is recommended for monitoring anticoagulation intensity in critically ill patients receiving unfractionated heparin by continuous IV infusion. Blood specimen (specimen) 07/23/2017 8:27 AM EDT 07/23/2017 8:51 AM EDT Narrative Resulting Agency Comment Spec In Lab Sriram Contreras MD HEMATOLOGY ORDERAB LES Performing Organization Address [facility] Co de Phone Number [facility] [place] [place] [address] * POCT Glucose (07/23/2017 8:02 AM EDT) [facility] Glucose, POC 103 65 - 199 mg/dL [facility] Comment: Supplemental ranges: <140 mg/dL before meals <180 mg/dL all other times of the day Blood specimen (specimen) 07/23/2017 8:02 AM EDT 07/23/2017 8:02 AM EDT Sriram Contreras MD POINT OF CARE TEST ORDERABLES Performing Organization Address [facility] Co de Phone Number [facility] [place] [place] [address] * (ABNORMAL) BLOOD GAS 2 ARTERIAL (07/23/2017 6:32 AM EDT) [facility] pH, Arterial 7.41 7.35 - 7.45 [facility] PCO2, Arterial 37 35 - 45 mmHg [facility] PO2, Arterial 60(L) 85 - 104 mmHg [facility] Bicarbonate, Arterial 22.6 20.0 - 26.0 mmol/L [facility] Base Excess, Arterial -2.0 -3.0 - 3.0 mmol/L [facility] Hgb Blood Gas 12.7(L) 13.7 - 16.5 gm/dL [facility] Oxyhemoglobin, Arterial 90.3(L) 94.0 - 97.0 % [facility] Carboxyhemoglob in, Arterial 0.3 % [facility] Comment: Nonsmokers: 0.5-1.5% COHB Smokers: Variable, but usually less than 10% Toxic: 20-30% COHB Lethal: Greater than 60% COHB Methemoglobin, Arterial 0.5 <=1.5 % [facility] Na Whole Blood 138 135 - 145 mmol/L [facility] K Whole Blood 3.7 3.5 - 5.0 mmol/L [facility] Comment: Please note: Patients with WBC >100,000 may have falsely elevated Potassium levels. Contact the Clinical Chemistry Laboratory if there are any questions. ICa Whole Blood 1.15(L) 1.15 - 1.33 mmol/L [facility] Comment: Note: ??Total bilirubin higher than 20 mg/dL may lead to falsely low ionized calcium. CL Whole Blood 109(H) 98 - 107 mmol/L [facility] Gluc Whole Bld 122 65 - 199 mg/dL [facility] Comment:Diabetes: >=200 mg/d L plus symptoms. Lactate WB 1.4 0.5 - 2.2 mmol/L [facility] FIO2 Art 30 % [facility] PF Ratio Art 200 [facility] Blood specimen (specimen) 07/23/2017 6:32 AM EDT 07/23/2017 6:32 AM EDT Sriram Contreras MD POINT OF CARE TEST ORDERABLES Performing Organization Address City/[facility]/ZIP Co de Phone Number [facility] [place] [place] [address] * Potassium (07/23/2017 4:15 AM EDT) Potassium 4.1 3.5 - 5.0 mmol/L [facility] Comment: Please note: ??Patients [...] MD CHEMISTRY ORDERABL ES Performing Organization Address City/[facility]/ZIP Co de Phone Number [facility] [place] [place] [address] * POCT Glucose (07/23/2017 3:50 AM EDT) Glucose, POC 126 65 - 199 mg/dL [facility] Comment: Supplemental ranges: <140 mg/dL before meals <180 mg/dL all other times of the day Blood specimen (specimen) 07/23/2017 3:50 AM EDT 07/23/2017 3:50 AM EDT Sriram Contreras MD POINT OF CARE TEST ORDERABLES Performing Organization Address [facility] [[email or web address]] de Phone Number [facility] [place] [place] [address] * (ABNORMAL) APTT (07/23/2017 1:53 AM EDT) [facility] Partial Thromboplastin Time 119(H) 25 - 35 sec [facility] Comment: The recommended therapeutic range for full dose, unfractionated heparin at [facility] is 80 ? 114 seconds. The use of the anti-Xa (heparin) level rather than the PTT is recommended for monitoring anticoagulation intensity in critically ill patients receiving unfractionated heparin by continuous IV infusion. Blood specimen (specimen) 07/23/2017 1:53 AM EDT 07/23/2017 2:01 AM EDT Narrative Resulting Agency Comment Spec In Lab Sriram Contreras MD HEMATOLOGY ORDERAB LES Performing Organization Address [facility] [[email or web address]] de Phone Number [facility] [place] [place] [address] * (ABNORMAL) Differential, Automated (07/23/2017 12:45 AM EDT) Neutrophil % 63.2 % [facility] Neutrophil Absolute 6.47(H) 1.70 - 6.10 x10(3)/mc L [facility] Lymph % 20.9 % [facility] Lymphocytes Abs 2.1 0.9 - 3.2 x10(3)/mc L [facility] Monocyte % 7.6 % [facility] Monocyte Abs 0.8 0.3 - 0.9 x10(3)/[facility] Eos % 2.8 % [facility] Eosinophils Abs 0.3 0.0 - 0.4 x10(3)/[facility] Basophil % 0.7 % [facility] Baso Absolute 0.1 0.0 - 0.1 x10(3)/[facility] Immature Gran % 4.80 % [facility] Comment: Immature granulocytes(IG's)percentage and absolute count will include metamyelocytes, myelocytes, and promyelocytes. Blood smears from CBCs yielding IG's will be scanned manually for concordance. If this scan disagrees with the automated IG or if promyelocytes are noted, a manual differential will be performed. Immature Gran Absolute 0.49(H) 0.00 - 0.04 x10(3)/[facility] Blood specimen (specimen) 07/23/2017 12:45 AM EDT 07/23/2017 12:51 AM EDT Narrative Resulting Agency Comment Spec In Lab Sriram Contreras MD HEMATOLOGY ORDERAB LES [facility] [place] [address] * (ABNORMAL) Hemogram (07/23/2017 12:45 AM EDT) White Blood Cell 10.2(H) 4.0 - 9.5 x10(3)/[facility] Red Blood Cell 3.62(L) 4.58 - 5.54 x10(6)/[facility] Hemoglobin 11.1(L) 13.7 - 16.5 gm/dL [facility] Hematocrit 33.5(L) 40.5 - 48.5 % [facility] Mean Cell Volume 92.5 82.9 - 93.1 fL [facility] Mean Cell Hemoglobin 30.7 27.5 - 32.1 pg [facility] Mean Cell Hemoglobin Concentration 33.1 32.0 - 35.7 gm/dL [facility] Platelet 165 145 - 357 x10(3)/mc L [facility] RDW Standard Deviation 46.6(H) 36.0 - 45.0 fL [facility] RDW coefficient of variation 13.7 11.4 - 13.8 % [facility] Mean Platelet Volume 9.9 7.6 - 12.9 fL [facility] NRBC% auto 0.0 % [facility] NRBC Absolute 0.000 0.000 - 0.000 x10(3)/mc L [facility] Blood specimen (specimen) 07/23/2017 12:45 AM EDT 07/23/2017 12:51 AM EDT Narrative Resulting Agency Comment Spec In Lab Sriram Contreras MD HEMATOLOGY ORDERAB LES [facility] [place] [phone] * (ABNORMAL) Basic Metabolic Panel (non-fasting) (07/23/2017 12:45 AM EDT) Glucose 127 65 - 199 mg/dL [facility] Comment:Diabetes: >=200 mg/d L plus symptoms Blood Urea Nitrogen 20 10 - 20 mg/dL [facility] Creatinine 0.65(L) 0.80 - 1.50 mg/dL [facility] Comment: Please note that the pediatric reference intervals supplied above were not validated at [facility]. Results from pediatric patients should be interpreted in conjunction to the patient's age, height and muscle mass. Sodium 142 135 - 145 mmol/L [facility] Potassium 3.7 3.5 - 5.0 mmol/L [facility] Comment: Please note: ??Patients with WBC >100,000 may have falsely elevated Potassium levels. ??For accurate Potassium quantification in these patients send serum separator tube (gold top) for subsequent determinations. ??Contact the Clinical Chemistry Laboratory if there are any questions. Chloride 105 98 - 107 mmol/L [facility] Carbon Dioxide 26 22 - 31 mmol/L [facility] Anion Gap 11 5 - 15 mmol/L [facility] Calcium 8.3(L) 8.5 - 10.5 mg/dL [facility] Est Glomerular Filtration Rate [...] the following links into your internet browser. [email or web address] Blood specimen (specimen) 07/23/2017 12:45 AM EDT 07/23/2017 12:51 AM EDT Narrative Resulting Agency Comment Spec In Lab Sriram Contreras MD CHEMISTRY ORDERABL ES Performing Organization Address [facility] Co de Phone Number [facility] [place] [place] [address] * POCT Glucose (07/22/2017 11:59 PM EDT) Glucose, POC 113 65 - 199 mg/dL [facility] Comment: Supplemental ranges: <140 mg/dL before meals <180 mg/dL all other times of the day Blood specimen (specimen) 07/22/2017 11:59 PM EDT 07/22/2017 11:59 PM EDT Sriram Contreras MD POINT OF CARE TEST ORDERABLES Performing Organization Address City/[facility] Co de Phone Number [facility] [place] [place] [address] * POCT Glucose (07/22/2017 8:07 PM EDT) Glucose, POC 111 65 - 199 mg/dL [facility] Comment: Supplemental ranges: <140 mg/dL before meals <180 mg/dL all other times of the day Blood specimen (specimen) 07/22/2017 8:07 PM EDT 07/22/2017 8:07 PM EDT Sriram Contreras MD POINT OF CARE TEST ORDERABLES Performing Organization Address [facility] Phone Number [facility] [place] [place] [address] * POCT Glucose (07/22/2017 4:00 PM EDT) Glucose, POC 112 65 - 199 mg/dL [facility] Comment: Supplemental ranges: <140 mg/dL before meals <180 mg/dL all other times of the day Blood specimen (specimen) 07/22/2017 4:00 PM EDT 07/22/2017 4:00 PM EDT Sriram Contreras MD POINT OF CARE TEST ORDERABLES Performing Organization Address [facility] Phone Number [facility] [place] [place] [address] * (ABNORMAL) APTT (07/22/2017 4:00 PM EDT) Partial Thromboplastin Time 92(H) 25 - 35 sec [facility] Comment: The recommended therapeutic range for full dose, unfractionated heparin at [facility] is 80 ? 114 seconds. The use of the anti-Xa (heparin) level rather than the PTT is recommended for monitoring anticoagulation intensity in critically ill patients receiving unfractionated heparin by continuous IV infusion. Blood specimen (specimen) 07/22/2017 4:00 PM EDT 07/22/2017 4:18 PM EDT Narrative Resulting Agency Comment Spec In Lab Sriram Contreras MD HEMATOLOGY ORDERAB LES Performing Organization Address [facility]/State/ZIP Co de Phone Number [facility] [place] [place] [address] * POCT Glucose (07/22/2017 11:45 AM EDT) Glucose, POC 111 65 - 199 mg/dL [facility] Comment: Supplemental ranges: <140 mg/dL before meals <180 mg/dL all other times of the day Blood specimen (specimen) 07/22/2017 11:45 AM EDT 07/22/2017 11:45 AM EDT Sriram Contreras MD POINT OF CARE TEST ORDERABLES Performing Organization Address [facility] [[email or web address]] de Phone Number [facility] [place] [place] [address] * (ABNORMAL) APTT (07/22/2017 8:30 AM EDT) [facility] Signature Partial Thromboplastin Time 83(H) 25 - 35 sec [facility] Comment: The recommended therapeutic range for full dose, unfractionated heparin at [facility] is 80 ? 114 seconds. The use of the anti-Xa (heparin) level rather than the PTT is recommended for monitoring anticoagulation intensity in critically ill patients receiving unfractionated heparin by continuous IV infusion. Blood specimen (specimen) 07/22/2017 8:30 AM EDT 07/22/2017 8:39 AM EDT Narrative Resulting Agency Comment Spec In Lab Sriram Contreras MD HEMATOLOGY ORDERAB LES Performing Organization Address [facility] Co de Phone Number [facility] [place] [place] [address] * POCT Glucose (07/22/2017 8:28 AM EDT) Glucose, POC 118 65 - 199 mg/dL [facility] Comment: Supplemental ranges: <140 mg/dL before meals <180 mg/dL all other times of the day Blood specimen (specimen) 07/22/2017 8:28 AM EDT 07/22/2017 8:28 AM EDT Sriram Contreras MD POINT OF CARE TEST ORDERABLES [facility] [place] [place] [address] * (ABNORMAL) BLOOD GAS 2 ARTERIAL (07/22/2017 8:27 AM EDT) pH, Arterial 7.42 7.35 - 7.45 [facility] PCO2, Arterial 39 35 - 45 mmHg [facility] PO2, Arterial 78(L) 85 - 104 mmHg [facility] Bicarbonate, Arterial 24.8 20.0 - 26.0 mmol/L [facility] Base Excess, Arterial 0.3 -3.0 - 3.0 mmol/L [facility] Hgb Blood Gas 13.4(L) 13.7 - 16.5 gm/dL [facility] Oxyhemoglobin, Arterial 94.2 94.0 - 97.0 % [facility] Carboxyhemoglob in, Arterial 0.3 % [facility] Comment: Nonsmokers: 0.5-1.5% COHB Smokers: Variable, but usually less than 10% Toxic: 20-30% COHB Lethal: Greater than 60% COHB Methemoglobin, Arterial 0.6 <=1.5 % [facility] Na Whole Blood 140 135 - 145 mmol/L [facility] K Whole Blood 3.8 3.5 - 5.0 mmol/L [facility] Comment: Please note: Patients with WBC >100,000 may have falsely elevated Potassium levels. Contact the Clinical Chemistry Laboratory if there are any questions. ICa Whole Blood 1.21 1.15 - 1.33 mmol/L [facility] Comment: Note: ??Total bilirubin higher than 20 mg/dL may lead to falsely low ionized calcium. CL Whole Blood 107 98 - 107 mmol/L [facility] Gluc Whole Bld 130 65 - 199 mg/dL [facility] Comment:Diabetes: >=200 mg/d L plus symptoms. Lactate WB 1.6 0.5 - 2.2 mmol/L [facility] FIO2 Art 40 % [facility] PF Ratio Art 195 [facility] Blood specimen (specimen) 07/22/2017 8:27 AM EDT 07/22/2017 8:27 AM EDT Sriram Contreras MD POINT OF CARE TEST ORDERABLES Performing Organization Address City/State/[facility] Co de Phone Number [facility] [place] [place] [address] * (ABNORMAL) Differential, Automated (07/22/2017 3:10 AM EDT) Neutrophil % 72.0 % [facility] Neutrophil Absolute 8.75(H) 1.70 - 6.10 x10(3)/mc L [facility] Lymph % 15.0 % [facility] Lymphocytes Abs 1.8 0.9 - 3.2 x10(3)/mc L [facility] Monocyte % 8.0 % [facility] Monocyte Abs 1.0(H) 0.3 - 0.9 x10(3)/mc L [facility] Eos % 2.4 % [facility] Eosinophils Abs 0.3 0.0 - 0.4 x10(3)/mc L [facility] Basophil % 0.3 % [facility] Baso Absolute 0.0 0.0 - 0.1 x10(3)/mc L [facility] Immature Gran % 2.30 % [facility] Comment: Immature granulocytes(IG's)percentage and absolute count will include metamyelocytes, myelocytes, and promyelocytes. Blood smears from CBCs yielding IG's will be scanned manually for concordance. If this scan disagrees with the automated IG or if promyelocytes are noted, a manual differential will be performed. Immature Gran Absolute 0.28(H) 0.00 - 0.04 x10(3)/mc L [facility] Blood specimen (specimen) 07/22/2017 3:10 AM EDT 07/22/2017 3:15 AM EDT Narrative Resulting Agency Comment Spec In Lab Sriram Contreras MD HEMATOLOGY ORDERAB LES [facility] [place] [address] * (ABNORMAL) Hemogram (07/22/2017 3:10 AM EDT) White Blood Cell 12.2(H) 4.0 - 9.5 x10(3)/[facility] Red Blood Cell 4.05(L) 4.58 - 5.54 x10(6)/[facility] Hemoglobin 12.5(L) 13.7 - 16.5 gm/dL [facility] Hematocrit 37.9(L) 40.5 - 48.5 % [facility] Mean Cell Volume 93.6(H) 82.9 - 93.1 fL [facility] Mean Cell Hemoglobin 30.9 27.5 - 32.1 pg [facility] Mean Cell Hemoglobin Concentration 33.0 32.0 - 35.7 gm/dL [facility] Platelet 168 145 - 357 x10(3)/[facility] RDW Standard Deviation 48.9(H) 36.0 - 45.0 [facility] RDW coefficient of variation 14.1(H) 11.4 - 13.8 % [facility] Mean Platelet Volume 10.2 7.6 - 12.9 fL [facility] NRBC% auto 0.0 % [facility] NRBC Absolute 0.000 0.000 - 0.000 x10(3)/[facility] Blood specimen (specimen) 07/22/2017 3:10 AM EDT 07/22/2017 3:15 AM EDT Narrative Resulting Agency Comment Spec In Lab Sriram Contreras MD HEMATOLOGY ORDERAB LES Performing Organization Address [facility] Co de Phone Number [facility] [place] [address] * (ABNORMAL) APTT (07/22/2017 3:10 AM EDT) Pathologist [facility] Partial Thromboplastin Time 89(H) 25 - 35 sec [facility] Comment: The recommended therapeutic range for full dose, unfractionated heparin at [facility] is 80 ? 114 seconds. The use of the anti-Xa (heparin) level rather than the PTT is recommended for monitoring anticoagulation intensity in critically ill patients receiving unfractionated heparin by continuous IV infusion. Blood specimen (specimen) 07/22/2017 3:10 AM EDT 07/22/2017 3:15 AM EDT Narrative Resulting Agency Comment Spec In Lab Sriram Contreras MD HEMATOLOGY ORDERAB LES Performing Organization Address [facility] [[email or web address]] de Phone Number [facility] [place] [place] [address] * (ABNORMAL) Basic Metabolic Panel (non-fasting) (07/22/2017 3:10 AM EDT) [facility] Glucose 121 65 - 199 mg/dL [facility] Comment:Diabetes: >=200 mg/d L plus symptoms Blood Urea Nitrogen 23(H) 10 - 20 mg/dL [facility] Creatinine 0.76(L) 0.80 - 1.50 mg/dL [facility] Comment: Please note that the pediatric reference intervals supplied above were not validated at [facility]. Results from pediatric patients should be interpreted in conjunction to the patient's age, height and muscle mass. Sodium 144 135 - 145 mmol/L [facility] Potassium 3.9 3.5 - 5.0 mmol/L [facility] Comment: Please note: ??Patients with WBC >100,000 may have falsely elevated Potassium levels. ??For accurate Potassium quantification in these patients send serum separator tube (gold top) for subsequent determinations. ??Contact the Clinical Chemistry Laboratory if there are any questions. Chloride 106 98 - 107 mmol/L [facility] Carbon Dioxide 25 22 - 31 mmol/L [facility] Anion Gap 13 5 - 15 mmol/L [facility] Calcium 8.3(L) 8.5 - 10.5 mg/dL [facility] Est Glomerular Filtration Rate [...] the following links into your internet browser. [email or web address] Blood specimen (specimen) 07/22/2017 3:10 AM EDT 07/22/2017 3:15 AM EDT Narrative Resulting Agency Comment Spec In Lab Sriram Contreras MD CHEMISTRY ORDERABL ES Performing Organization Address [facility] Co de Phone Number [facility] [place] [place] [address] * POCT Glucose (07/22/2017 3:08 AM EDT) Glucose, POC 109 65 - 199 mg/dL [facility] Comment: Supplemental ranges: <140 mg/dL before meals <180 mg/dL all other times of the day Blood specimen (specimen) 07/22/2017 3:08 AM EDT 07/22/2017 3:08 AM EDT Sriram Contreras MD POINT OF CARE TEST ORDERABLES Performing Organization Address City/[facility] Co de Phone Number [facility] [place] [address] * POCT Glucose (07/21/2017 11:52 PM EDT) Glucose, POC 135 65 - 199 mg/dL [facility] Comment: Supplemental ranges: <140 mg/dL before meals <180 mg/dL all other times of the day Blood specimen (specimen) 07/21/2017 11:52 PM EDT 07/21/2017 11:52 PM EDT Sriram Contreras MD POINT OF CARE TEST ORDERABLES Performing Organization Address [facility] [[email or web address]] de Phone Number [facility] [place] [place] [address] * EKG 12 Lead (07/21/2017 10:42 PM EDT) [facility] Ventricular rate 75 BPM MUSE SYSTEM Atrial Rate 258 BPM MUSE SYSTEM QRS Duration 86 ms MUSE SYSTEM Q-T Interval 400 ms MUSE SYSTEM QTC Calculated (Bezet) 446 ms MUSE SYSTEM Calculated R Sargeant 61 degrees MUSE SYSTEM Calculated T Sargeant 136 degrees MUSE SYSTEM INTERPRETATION Atrial fibrillation [...] Contreras MD ECG ORDERABLES Performing Organization Address [facility] Phone Number MUSE SYSTEM * Magnesium (07/21/2017 10:35 PM EDT) [facility] Magnesium 0.80 0.69 - 1.07 mmol/L [facility] Blood specimen (specimen) 07/21/2017 10:35 PM EDT 07/21/2017 10:40 PM EDT Narrative Resulting Agency Comment Spec In Lab Sriram Contreras MD CHEMISTRY ORDERABL ES Performing Organization Address [facility] Co de Phone Number [facility] [place] [place] [address] * (ABNORMAL) Basic Metabolic Panel (non-fasting) (07/21/2017 10:35 PM EDT) Glucose 135 65 - 199 mg/dL [facility] Comment:Diabetes: >=200 mg/d L plus symptoms Blood Urea Nitrogen 23(H) 10 - 20 mg/dL [facility] Creatinine 0.88 0.80 - 1.50 mg/dL [facility] Comment: Please note that the pediatric reference intervals supplied above were not validated at [facility]. Results from pediatric patients should be interpreted in conjunction to the patient's age, height and muscle mass. Sodium 144 135 - 145 mmol/L [facility] Potassium 4.0 3.5 - 5.0 mmol/L [facility] Comment: Please note: ??Patients with WBC >100,000 may have falsely elevated Potassium levels. ??For accurate Potassium quantification in these patients send serum separator tube (gold top) for subsequent determinations. ??Contact the Clinical Chemistry Laboratory if there are any questions. Chloride 107 98 - 107 mmol/L [facility] Carbon Dioxide 25 22 - 31 mmol/L [facility] Anion Gap 12 5 - 15 mmol/L [facility] Calcium 8.7 8.5 - 10.5 mg/dL [facility] Est Glomerular Filtration Rate [...] the following links into your internet browser. [email or web address] Blood specimen (specimen) 07/21/2017 10:35 PM EDT 07/21/2017 10:40 PM EDT Narrative Resulting Agency Comment Spec In Lab Sriram Contreras MD CHEMISTRY ORDERABL ES Performing Organization Address [facility] Co de Phone Number [facility] [place] [place] [address] * (ABNORMAL) APTT (07/21/2017 9:10 PM EDT) Partial Thromboplastin Time 87(H) 25 - 35 sec [facility] Comment: The recommended therapeutic range for full dose, unfractionated heparin at [facility] is 80 ? 114 seconds. The use of the anti-Xa (heparin) level rather than the PTT is recommended for monitoring anticoagulation intensity in critically ill patients receiving unfractionated heparin by continuous IV infusion. Blood specimen (specimen) 07/21/2017 9:10 PM EDT 07/21/2017 9:17 PM EDT Narrative Resulting Agency Comment Spec In Lab Sriram Contreras MD HEMATOLOGY ORDERAB LES Performing Organization Address [facility] Co de Phone Number [facility] [place] [place] [address] * POCT Glucose (07/21/2017 7:49 PM EDT) Glucose, POC 117 65 - 199 mg/dL [facility] Comment: Supplemental ranges: <140 mg/dL before meals <180 mg/dL all other times of the day Blood specimen (specimen) 07/21/2017 7:49 PM EDT 07/21/2017 7:49 PM EDT Sriram Contreras MD POINT OF CARE TEST ORDERABLES Performing Organization Address [facility] Co de Phone Number [facility] [place] [place] [address] * POCT Glucose (07/21/2017 4:10 PM EDT) Glucose, POC 116 65 - 199 mg/dL [facility] Comment: Supplemental ranges: <140 mg/dL before meals <180 mg/dL all other times of the day Blood specimen (specimen) 07/21/2017 4:10 PM EDT 07/21/2017 4:10 PM EDT Sriram Contreras MD POINT OF CARE TEST ORDERABLES Performing Organization Address [facility] de Phone Number [facility] [place] [place] [address] * (ABNORMAL) APTT (07/21/2017 4:10 PM EDT) [facility] Partial Thromboplastin Time 78(H) 25 - 35 sec [facility] Comment: The recommended therapeutic range for full dose, unfractionated heparin at [facility] is 80 ? 114 seconds. The use of the anti-Xa (heparin) level rather than the PTT is recommended for monitoring anticoagulation intensity in critically ill patients receiving unfractionated heparin by continuous IV infusion. Blood specimen (specimen) 07/21/2017 4:10 PM EDT 07/21/2017 4:28 PM EDT Narrative Resulting Agency Comment Spec In Lab Sriram Contreras MD HEMATOLOGY ORDERAB LES Performing Organization Address [facility] Phone Number [facility] [place] [place] [address] * POCT Glucose (07/21/2017 12:04 PM EDT) [facility] Glucose, POC 138 65 - 199 mg/dL [facility] Comment: Supplemental ranges: <140 mg/dL before meals <180 mg/dL all other times of the day Blood specimen (specimen) 07/21/2017 12:04 PM EDT 07/21/2017 12:04 PM EDT Sriram Contreras MD POINT OF CARE TEST ORDERABLES Performing Organization Address [facility] de Phone Number [facility] [place] [place] [address] * C. Difficile Screen (07/21/2017 9:00 AM EDT) [facility] C Diff Interp Negative Negative [facility] Comment: C. diff ??Negative Clostridium [...] - GEN ERAL ORDERABLES Performing Organization Address [facility] Co de Phone Number [facility] [place] [address] * Potassium (07/21/2017 8:30 AM EDT) Potassium 3.8 3.5 - 5.0 mmol/L [facility] Comment: Please note: ??Patients [...] ORDERABL ES Performing Organization Address [facility] Co de Phone Number [facility] [place] [address] * (ABNORMAL) APTT (07/21/2017 8:30 AM EDT) Partial Thromboplastin Time 63(H) 25 - 35 sec [facility] Comment: The recommended therapeutic range for full dose, unfractionated heparin at [facility] is 80 ? 114 seconds. The use of the anti-Xa (heparin) level rather than the PTT is recommended for monitoring anticoagulation intensity in critically ill patients receiving unfractionated heparin by continuous IV infusion. Blood specimen (specimen) 07/21/2017 8:30 AM EDT 07/21/2017 8:40 AM EDT Narrative Resulting Agency Comment Spec In Lab Sriram Contreras MD HEMATOLOGY ORDERAB LES Performing Organization Address City/[facility] Co de Phone Number [facility] [place] [place] [address] * POCT Glucose (07/21/2017 8:24 AM EDT) Glucose, POC 131 65 - 199 mg/dL [facility] Comment: Supplemental ranges: <140 mg/dL before meals <180 mg/dL all other times of the day Blood specimen (specimen) 07/21/2017 8:24 AM EDT 07/21/2017 8:24 AM EDT Sriram Contreras MD POINT OF CARE TEST ORDERABLES Performing Organization Address [facility] Co de Phone Number [facility] [place] [place] [address] * (ABNORMAL) BLOOD GAS 2 ARTERIAL (07/21/2017 7:42 AM EDT) [facility] Signature pH, Arterial 7.44 7.35 - 7.45 [facility] PCO2, Arterial 37 35 - 45 mmHg [facility] PO2, Arterial 72(L) 85 - 104 mmHg [facility] Bicarbonate, Arterial 24.5 20.0 - 26.0 mmol/L [facility] Base Excess, Arterial 0.3 -3.0 - 3.0 mmol/L [facility] Hgb Blood Gas 14.0 13.7 - 16.5 gm/dL [facility] Oxyhemoglobin, Arterial 93.8(L) 94.0 - 97.0 % [facility] Carboxyhemoglob in, Arterial 0.3 % [facility] Comment: Nonsmokers: 0.5-1.5% COHB Smokers: Variable, but usually less than 10% Toxic: 20-30% COHB Lethal: Greater than 60% COHB Methemoglobin, Arterial 0.5 <=1.5 % [facility] Na Whole Blood 143 135 - 145 mmol/L [facility] K Whole Blood 4.0 3.5 - 5.0 mmol/L [facility] Comment: Please note: Patients with WBC >100,000 may have falsely elevated Potassium levels. Contact the Clinical Chemistry Laboratory if there are any questions. ICa Whole Blood 1.22 1.15 - 1.33 mmol/L [facility] Comment: Note: ??Total bilirubin higher than 20 mg/dL may lead to falsely low ionized calcium. CL Whole Blood 111(H) 98 - 107 mmol/L [facility] Gluc Whole Bld 148 65 - 199 mg/dL [facility] Comment:Diabetes: >=200 mg/d L plus symptoms. Lactate WB 1.5 0.5 - 2.2 mmol/L [facility] FIO2 Art 40 % [facility] PF Ratio Art 180 [facility] Blood specimen (specimen) 07/21/2017 7:42 AM EDT 07/21/2017 7:42 AM EDT Sriram Contreras MD POINT OF CARE TEST ORDERABLES Performing Organization Address City/[facility]/ZIP Co de Phone Number [facility] [place] [place] [address] * POCT Glucose (07/21/2017 3:21 AM EDT) Glucose, POC 116 65 - 199 mg/dL [facility] Comment: Supplemental ranges: <140 mg/dL before meals <180 mg/dL all other times of the day Blood specimen (specimen) 07/21/2017 3:21 AM EDT 07/21/2017 3:21 AM EDT Sriram Contreras MD POINT OF CARE TEST ORDERABLES [facility] [place] [place] [address] * Potassium (07/21/2017 3:20 AM EDT) Potassium 4.0 3.5 - 5.0 mmol/L [facility] Comment: Please note: ??Patients [...] ORDERABL ES Performing Organization Address [facility] Co de Phone Number [facility] [place] [place] [address] * (ABNORMAL) APTT (07/21/2017 1:05 AM EDT) [facility] Partial Thromboplastin Time 42(H) 25 - 35 sec [facility] Comment: The recommended therapeutic range for full dose, unfractionated heparin at [facility] is 80 ? 114 seconds. The use of the anti-Xa (heparin) level rather than the PTT is recommended for monitoring anticoagulation intensity in critically ill patients receiving unfractionated heparin by continuous IV infusion. Blood specimen (specimen) 07/21/2017 1:05 AM EDT 07/21/2017 1:08 AM EDT Narrative Resulting Agency Comment Spec In Lab Sriram Contreras MD HEMATOLOGY ORDERAB LES Performing Organization Address [facility]/ZIP Co de Phone Number [facility] [place] [address] * (ABNORMAL) Differential, Automated (07/21/2017 12:25 AM EDT) Pathologist [facility] Neutrophil % 75.8 % [facility] Neutrophil Absolute 7.59(H) 1.70 - 6.10 x10(3)/mc L [facility] Lymph % 12.8 % [facility] Lymphocytes Abs 1.3 0.9 - 3.2 x10(3)/ L [facility] Monocyte % 9.0 % [facility] Monocyte Abs 0.9 0.3 - 0.9 x10(3)/ L [facility] Eos % 1.1 % [facility] Eosinophils Abs 0.1 0.0 - 0.4 x10(3)/[facility] Basophil % 0.3 % [facility] Baso Absolute 0.0 0.0 - 0.1 x10(3)/[facility] Immature Gran % 1.00 % [facility] Comment: Immature granulocytes(IG's)percentage and absolute count will include metamyelocytes, myelocytes, and promyelocytes. Blood smears from CBCs yielding IG's will be scanned manually for concordance. If this scan disagrees with the automated IG or if promyelocytes are noted, a manual differential will be performed. Immature Gran Absolute 0.10(H) 0.00 - 0.04 x10(3)/[facility] Blood specimen (specimen) 07/21/2017 12:25 AM EDT 07/21/2017 12:48 AM EDT Narrative Resulting Agency Comment Spec In Lab Sriram Contreras MD HEMATOLOGY ORDERAB LES Performing Organization Address City/State/[facility] Co de Phone Number [facility] [place] [place] [address] * (ABNORMAL) Hemogram (07/21/2017 12:25 AM EDT) White Blood Cell 10.0(H) 4.0 - 9.5 x10(3)/[facility] Red Blood Cell 4.24(L) 4.58 - 5.54 x10(6)/ L [facility] Hemoglobin 13.2(L) 13.7 - 16.5 gm/dL [facility] Hematocrit 39.4(L) 40.5 - 48.5 % [facility] Mean Cell Volume 92.9 82.9 - 93.1 fL [facility] Mean Cell Hemoglobin 31.1 27.5 - 32.1 pg [facility] Mean Cell Hemoglobin Concentration 33.5 32.0 - 35.7 gm/dL [facility] Platelet 163 145 - 357 x10(3)/mc L [facility] RDW Standard Deviation 48.0(H) 36.0 - 45.0 fL [facility] RDW coefficient of variation 14.1(H) 11.4 - 13.8 % [facility] Mean Platelet Volume 10.2 7.6 - 12.9 fL [facility] NRBC% auto 0.0 % [facility] NRBC Absolute 0.000 0.000 - 0.000 x10(3)/mc L [facility] Blood specimen (specimen) 07/21/2017 12:25 AM EDT 07/21/2017 12:48 AM EDT Narrative Resulting Agency Comment Spec In Lab Sriram Contreras MD HEMATOLOGY ORDERAB LES Performing Organization Address City/State/[facility] Co de Phone Number [facility] [place] [place] [address] * (ABNORMAL) Basic Metabolic Panel (non-fasting) (07/21/2017 12:25 AM EDT) Glucose 132 65 - 199 mg/dL [facility] Comment:Diabetes: >=200 mg/d L plus symptoms Blood Urea Nitrogen 22(H) 10 - 20 mg/dL [facility] Creatinine 0.79(L) 0.80 - 1.50 mg/dL [facility] Comment: Please note that the pediatric reference intervals supplied above were not validated at [facility]. Results from pediatric patients should be interpreted in conjunction to the patient's age, height and muscle mass. Sodium 146(H) 135 - 145 mmol/L [facility] Potassium 3.8 3.5 - 5.0 mmol/L [facility] Comment: Please note: ??Patients with WBC >100,000 may have falsely elevated Potassium levels. ??For accurate Potassium quantification in these patients send serum separator tube (gold top) for subsequent determinations. ??Contact the Clinical Chemistry Laboratory if there are any questions. Chloride 110(H) 98 - 107 mmol/L [facility] Carbon Dioxide 25 22 - 31 mmol/L [facility] Anion Gap 11 5 - 15 mmol/L [facility] Calcium 8.5 8.5 - 10.5 mg/dL [facility] Est Glomerular Filtration Rate [...] the following links into your internet browser. [email or web address] Blood specimen (specimen) 07/21/2017 12:25 AM EDT 07/21/2017 12:48 AM EDT Narrative Resulting Agency Comment Spec In Lab Sriram Contreras MD CHEMISTRY ORDERABL ES [facility] [place] [address] * (ABNORMAL) BLOOD GAS 2 ARTERIAL (07/21/2017 12:21 AM EDT) pH, Arterial 7.44 7.35 - 7.45 [facility] PCO2, Arterial 37 35 - 45 mmHg [facility] PO2, Arterial 70(L) 85 - 104 mmHg [facility] Bicarbonate, Arterial 24.1 20.0 - 26.0 mmol/L [facility] Base Excess, Arterial 0.1 -3.0 - 3.0 mmol/L [facility] Hgb Blood Gas 14.3 13.7 - 16.5 gm/dL [facility] Oxyhemoglobin, Arterial 92.8(L) 94.0 - 97.0 % [facility] Carboxyhemoglob in, Arterial 0.0 % [facility] Comment: Nonsmokers: 0.5-1.5% COHB Smokers: Variable, but usually less than 10% Toxic: 20-30% COHB Lethal: Greater than 60% COHB Methemoglobin, Arterial 0.4 <=1.5 % [facility] Na Whole Blood 145 135 - 145 mmol/L [facility] K Whole Blood 3.9 3.5 - 5.0 mmol/L [facility] Comment: Please note: Patients with WBC >100,000 may have falsely elevated Potassium levels. Contact the Clinical Chemistry Laboratory if there are any questions. ICa Whole Blood 1.21 1.15 - 1.33 mmol/L [facility] Comment: Note: ??Total bilirubin higher than 20 mg/dL may lead to falsely low ionized calcium. CL Whole Blood 110(H) 98 - 107 mmol/L [facility] Gluc Whole Bld 132 65 - 199 mg/dL [facility] Comment:Diabetes: >=200 mg/d L plus symptoms. Lactate WB 1.1 0.5 - 2.2 mmol/L [facility] FIO2 Art 40 % [facility] PF Ratio Art 175 [facility] Temp Art 37.8 Celsius [facility] Blood specimen (specimen) 07/21/2017 12:21 AM EDT 07/21/2017 12:21 AM EDT Sriram Contreras MD POINT OF CARE TEST ORDERABLES [facility] [place] [place] [address] * POCT Glucose (07/21/2017 12:00 AM EDT) Glucose, POC 119 65 - 199 mg/dL [facility] Comment: Supplemental ranges: <140 mg/dL before meals <180 mg/dL all other times of the day Blood specimen (specimen) 07/21/2017 07/21/2017 Sriram Contreras MD POINT OF CARE TEST ORDERABLES Performing Organization Address [facility] Phone Number [facility] [place] [address] * Potassium (07/20/2017 9:50 PM EDT) [facility] Potassium 4.1 3.5 - 5.0 mmol/L [facility] Comment: Please note: ??Patients [...] MD CHEMISTRY ORDERABL ES Performing Organization Address [facility] de Phone Number [facility] [place] [place] [address] * EKG 12 Lead (07/20/2017 8:40 PM EDT) [facility] Ventricular rate 77 BPM MUSE SYSTEM Atrial Rate 394 BPM MUSE SYSTEM QRS Duration 86 ms MUSE SYSTEM Q-T Interval 396 ms MUSE SYSTEM QTC Calculated (Bezet) 448 ms MUSE SYSTEM Calculated R Sargeant 73 degrees MUSE SYSTEM Calculated T Sargeant 127 degrees MUSE SYSTEM INTERPRETATION Atrial fibrillation [...] * POCT Glucose (07/20/2017 7:28 PM EDT) Glucose, POC 126 65 - 199 mg/dL [facility] Comment: Supplemental ranges: <140 mg/dL before meals <180 mg/dL all other times of the day Blood specimen (specimen) 07/20/2017 7:28 PM EDT 07/20/2017 7:28 PM EDT Sriram Contreras MD POINT OF CARE TEST ORDERABLES Performing Organization Address City/[facility]/ZIP Co de Phone Number [facility] [place] [place] [address] * (ABNORMAL) Differential, Automated (07/20/2017 5:15 PM EDT) Neutrophil % 79.7 % [facility] Neutrophil Absolute 8.01(H) 1.70 - 6.10 x10(3)/mc L [facility] Lymph % 10.4 % [facility] Lymphocytes Abs 1.0 0.9 - 3.2 x10(3)/mc L [facility] Monocyte % 8.0 % [facility] Monocyte Abs 0.8 0.3 - 0.9 x10(3)/mc L [facility] Eos % 0.7 % [facility] Eosinophils Abs 0.1 0.0 - 0.4 x10(3)/mc L [facility] Basophil % 0.2 % [facility] Baso Absolute 0.0 0.0 - 0.1 x10(3)/mc L [facility] Immature Gran % 1.00 % [facility] Comment: Immature granulocytes(IG's)percentage and absolute count will include metamyelocytes, myelocytes, and promyelocytes. Blood smears from CBCs yielding IG's will be scanned manually for concordance. If this scan disagrees with the automated IG or if promyelocytes are noted, a manual differential will be performed. Immature Gran Absolute 0.10(H) 0.00 - 0.04 x10(3)/mc L [facility] Blood specimen (specimen) 07/20/2017 5:15 PM EDT 07/20/2017 5:26 PM EDT Narrative Resulting Agency Comment Spec In Lab Sriram Contreras MD HEMATOLOGY ORDERAB LES [facility] [place] [place] [address] * (ABNORMAL) Hemogram (07/20/2017 5:15 PM EDT) White Blood Cell 10.0(H) 4.0 - 9.5 x10(3)/mc L [facility] Red Blood Cell 4.28(L) 4.58 - 5.54 x10(6)/mc L [facility] Hemoglobin 13.3(L) 13.7 - 16.5 gm/dL [facility] Hematocrit 39.9(L) 40.5 - 48.5 % [facility] Mean Cell Volume 93.2(H) 82.9 - 93.1 fL [facility] Mean Cell Hemoglobin 31.1 27.5 - 32.1 pg [facility] Mean Cell Hemoglobin Concentration 33.3 32.0 - 35.7 gm/dL [facility] Platelet 163 145 - 357 x10(3)/mc L [facility] RDW Standard Deviation 47.7(H) 36.0 - 45.0 fL [facility] RDW coefficient of variation 14.1(H) 11.4 - 13.8 % [facility] Mean Platelet Volume 10.1 7.6 - 12.9 fL [facility] NRBC% auto 0.0 % [facility] NRBC Absolute 0.000 0.000 - 0.000 x10(3)/mc L [facility] Blood specimen (specimen) 07/20/2017 5:15 PM EDT 07/20/2017 5:26 PM EDT Narrative Resulting Agency Comment Spec In Lab Sriram Contreras MD HEMATOLOGY ORDERAB LES Performing Organization Address [facility] Co de Phone Number [facility] [place] [address] * APTT (07/20/2017 5:15 PM EDT) Partial Thromboplastin Time 28 25 - 35 sec [facility] Comment: The recommended therapeutic range for full dose, unfractionated heparin at [facility] is 80 ? 114 seconds. The use of the anti-Xa (heparin) level rather than the PTT is recommended for monitoring anticoagulation intensity in critically ill patients receiving unfractionated heparin by continuous IV infusion. Blood specimen (specimen) 07/20/2017 5:15 PM EDT 07/20/2017 5:26 PM EDT Narrative Resulting Agency Comment Spec In Lab Sriram Contreras MD HEMATOLOGY ORDERAB LES Performing Organization Address [facility] [[email or web address]] de Phone Number [facility] [place] [address] * Magnesium (07/20/2017 4:50 PM EDT) Magnesium 1.00 0.69 - 1.07 mmol/L [facility] Blood specimen (specimen) 07/20/2017 4:50 PM EDT 07/20/2017 5:10 PM EDT Narrative Resulting Agency Comment Spec In Lab Sylvia Vaughn MD CHEMISTRY ORDERABLES Performing Organization Address [facility] Co de Phone Number [facility] [place] [address] * (ABNORMAL) Basic Metabolic Panel (non-fasting) (07/20/2017 4:50 PM EDT) Glucose 143 65 - 199 mg/dL [facility] Comment:Diabetes: >=200 mg/d L plus symptoms Blood Urea Nitrogen 23(H) 10 - 20 mg/dL [facility] Creatinine 0.85 0.80 - 1.50 mg/dL [facility] Comment: Please note that the pediatric reference intervals supplied above were not validated at [facility]. Results from pediatric patients should be interpreted in conjunction to the patient's age, height and muscle mass. Sodium 146(H) 135 - 145 mmol/L [facility] Potassium 3.9 3.5 - 5.0 mmol/L [facility] Comment: Please note: ??Patients with WBC >100,000 may have falsely elevated Potassium levels. ??For accurate Potassium quantification in these patients send serum separator tube (gold top) for subsequent determinations. ??Contact the Clinical Chemistry Laboratory if there are any questions. Chloride 110(H) 98 - 107 mmol/L [facility] Carbon Dioxide 25 22 - 31 mmol/L [facility] Anion Gap 11 5 - 15 mmol/L [facility] Calcium 8.5 8.5 - 10.5 mg/dL [facility] Est Glomerular Filtration Rate [...] the following links into your internet browser. [email or web address] Blood specimen (specimen) 07/20/2017 4:50 PM EDT 07/20/2017 5:10 PM EDT Narrative Resulting Agency Comment Spec In Lab Sylvia Vaughn MD CHEMISTRY ORDERABLES [facility] [place] [place] [address] * POCT Glucose (07/20/2017 3:41 PM EDT) Glucose, POC 138 65 - 199 mg/dL [facility] Comment: Supplemental ranges: <140 mg/dL before meals <180 mg/dL all other times of the day Blood specimen (specimen) 07/20/2017 3:41 PM EDT 07/20/2017 3:41 PM EDT Sriram Contreras MD POINT OF CARE TEST ORDERABLES [facility] [place] [place] [address] * CTA Chest for Pulmonary Embolus w [...] suggestive of normal upper respiratory yung (A) [facility] Gram Stain Many White Blood Cells seen Few squamous epithelial cells seen Many Gram Negative Rods seen Many mixed bacterial morphotypes suggestive of normal upper respiratory yung (A) [facility] Organism Enterobacter aerogenes(A) [facility] Organism Gram Negative Rods(A) [facility] Specimen from trachea obtained [...] - GEN ERAL ORDERABLES Performing Organization Address City/State/[facility] Co de Phone Number [facility] [place] [address] * POCT Glucose (07/20/2017 11:45 AM EDT) Glucose, POC 125 65 - 199 mg/dL [facility] Comment: Supplemental ranges: <140 mg/dL before meals <180 mg/dL all other times of the day Blood specimen (specimen) 07/20/2017 11:45 AM EDT 07/20/2017 11:45 AM EDT Sriram Contreras MD POINT OF CARE TEST ORDERABLES [facility] [place] [address] * (ABNORMAL) BLOOD GAS 2 ARTERIAL (07/20/2017 11:43 AM EDT) pH, Arterial 7.45 7.35 - 7.45 [facility] PCO2, Arterial 35 35 - 45 mmHg [facility] PO2, Arterial 57(L) 85 - 104 mmHg [facility] Bicarbonate, Arterial 23.9 20.0 - 26.0 mmol/L [facility] Base Excess, Arterial 0.1 -3.0 - 3.0 mmol/L [facility] Hgb Blood Gas 14.6 13.7 - 16.5 gm/dL [facility] Oxyhemoglobin, Arterial 89.5(L) 94.0 - 97.0 % [facility] Carboxyhemoglob in, Arterial 0.0 % [facility] Comment: Nonsmokers: 0.5-1.5% COHB Smokers: Variable, but usually less than 10% Toxic: 20-30% COHB Lethal: Greater than 60% COHB Methemoglobin, Arterial 0.5 <=1.5 % [facility] Na Whole Blood 145 135 - 145 mmol/L [facility] K Whole Blood 3.9 3.5 - 5.0 mmol/L [facility] Comment: Please note: Patients with WBC >100,000 may have falsely elevated Potassium levels. Contact the Clinical Chemistry Laboratory if there are any questions. ICa Whole Blood 1.23 1.15 - 1.33 mmol/L [facility] Comment: Note: ??Total bilirubin higher than 20 mg/dL may lead to falsely low ionized calcium. CL Whole Blood 110(H) 98 - 107 mmol/L [facility] Gluc Whole Bld 136 65 - 199 mg/dL [facility] Comment:Diabetes: >=200 mg/d L plus symptoms. Lactate WB 1.3 0.5 - 2.2 mmol/L [facility] FIO2 Art 35 % [facility] PF Ratio Art 163 [facility] Temp Art 37.6 Celsius [facility] Blood specimen (specimen) 07/20/2017 11:43 AM EDT 07/20/2017 11:43 AM EDT Sriram Contreras MD POINT OF CARE TEST ORDERABLES Performing Organization Address [facility] [[email or web address]] de Phone Number [facility] [place] [address] * Potassium (07/20/2017 10:15 AM EDT) Potassium 4.1 3.5 - 5.0 mmol/L [facility] Comment: Please note: ??Patients [...] ORDERABL ES Performing Organization Address [facility] [[email or web address]] de Phone Number [facility] [place] [place] [address] * XR Chest PA or AP 1 [...] hypoxic respiratory failure Location of Procedure: ICU [facility]. Risks and Benefits: The risks and [...] Glucose, POC 134 65 - 199 mg/dL [facility] Comment: Supplemental ranges: <140 mg/dL before meals <180 mg/dL all other times of the day Blood specimen (specimen) 07/20/2017 7:29 AM EDT 07/20/2017 7:29 AM EDT Sriram Contreras MD POINT OF CARE TEST ORDERABLES [facility] [place] [place] [address] * Potassium (07/20/2017 7:28 AM EDT) Potassium 4.0 3.5 - 5.0 mmol/L [facility] Comment: Please note: ??Patients [...] Lab Sriram Contreras MD CHEMISTRY ORDERABL ES [facility] [place] [address] * (ABNORMAL) Differential, Automated (07/20/2017 3:15 AM EDT) Neutrophil % 83.6 % [facility] Neutrophil Absolute 8.93(H) 1.70 - 6.10 x10(3)/ L [facility] Lymph % 9.1 % [facility] Lymphocytes Abs 1.0 0.9 - 3.2 x10(3)/[facility] Monocyte % 6.3 % [facility] Monocyte Abs 0.7 0.3 - 0.9 x10(3)/ L [facility] Eos % 0.1 % [facility] Eosinophils Abs 0.0 0.0 - 0.4 x10(3)/[facility] Basophil % 0.2 % [facility] Baso Absolute 0.0 0.0 - 0.1 x10(3)/ L [facility] Immature Gran % 0.70 % [facility] Comment: Immature granulocytes(IG's)percentage and absolute count will include metamyelocytes, myelocytes, and promyelocytes. Blood smears from CBCs yielding IG's will be scanned manually for concordance. If this scan disagrees with the automated IG or if promyelocytes are noted, a manual differential will be performed. Immature Gran Absolute 0.07(H) 0.00 - 0.04 x10(3)/mc L [facility] Blood specimen (specimen) 07/20/2017 3:15 AM EDT 07/20/2017 3:58 AM EDT Narrative Resulting Agency Comment Spec In Lab Sriram Contreras MD HEMATOLOGY ORDERAB LES [facility] [place] [place] [address] * (ABNORMAL) Hemogram (07/20/2017 3:15 AM EDT) White Blood Cell 10.7(H) 4.0 - 9.5 x10(3)/mc L [facility] Red Blood Cell 4.40(L) 4.58 - 5.54 x10(6)/mc L [facility] Hemoglobin 13.7 13.7 - 16.5 gm/dL [facility] Hematocrit 39.6(L) 40.5 - 48.5 % [facility] Mean Cell Volume 90.0 82.9 - 93.1 fL [facility] Mean Cell Hemoglobin 31.1 27.5 - 32.1 pg [facility] Mean Cell Hemoglobin Concentration 34.6 32.0 - 35.7 gm/dL [facility] Platelet 186 145 - 357 x10(3)/mc L [facility] RDW Standard Deviation 45.8(H) 36.0 - 45.0 [facility] RDW coefficient of variation 13.9(H) 11.4 - 13.8 % [facility] Mean Platelet Volume 9.9 7.6 - 12.9 [facility] NRBC% auto 0.0 % [facility] NRBC Absolute 0.000 0.000 - 0.000 x10(3)/mc L [facility] Blood specimen (specimen) 07/20/2017 3:15 AM EDT 07/20/2017 3:58 AM EDT Narrative Resulting Agency Comment Spec In Lab Sriram Contreras MD HEMATOLOGY ORDERAB LES [facility] [place] [place] [address] * (ABNORMAL) Basic Metabolic Panel (non-fasting) (07/20/2017 3:15 AM EDT) Glucose 126 65 - 199 mg/dL [facility] Comment:Diabetes: >=200 mg/d L plus symptoms Blood Urea Nitrogen 23(H) 10 - 20 mg/dL [facility] Creatinine 0.97 0.80 - 1.50 mg/dL [facility] Comment: Please note that the pediatric reference intervals supplied above were not validated at [facility]. Results from pediatric patients should be interpreted in conjunction to the patient's age, height and muscle mass. Sodium 143 135 - 145 mmol/L [facility] Potassium 3.9 3.5 - 5.0 mmol/L [facility] Comment: Please note: ??Patients with WBC >100,000 may have falsely elevated Potassium levels. ??For accurate Potassium quantification in these patients send serum separator tube (gold top) for subsequent determinations. ??Contact the Clinical Chemistry Laboratory if there are any questions. Chloride 106 98 - 107 mmol/L [facility] Carbon Dioxide 23 22 - 31 mmol/L [facility] Anion Gap 14 5 - 15 mmol/L [facility] Calcium 8.5 8.5 - 10.5 mg/dL [facility] Est Glomerular Filtration Rate [...] the following links into your internet browser. [email or web address] Blood specimen (specimen) 07/20/2017 3:15 AM EDT 07/20/2017 3:58 AM EDT Narrative Resulting Agency Comment Spec In Lab Sriram Contreras MD CHEMISTRY ORDERABL ES Performing Organization Address City/[facility]/ZIP Co de Phone Number [facility] [place] [place] [address] * POCT Glucose (07/20/2017 3:13 AM EDT) Glucose, POC 114 65 - 199 mg/dL [facility] Comment: Supplemental ranges: <140 mg/dL before meals <180 mg/dL all other times of the day Blood specimen (specimen) 07/20/2017 3:13 AM EDT 07/20/2017 3:13 AM EDT Sriram Contreras MD POINT OF CARE TEST ORDERABLES Performing Organization Address [facility] Co de Phone Number [facility] [place] [place] [address] * (ABNORMAL) BLOOD GAS 2 ARTERIAL (07/19/2017 11:36 PM EDT) pH, Arterial 7.51(H) 7.35 - 7.45 [facility] PCO2, Arterial 29(L) 35 - 45 mmHg [facility] PO2, Arterial 77(L) 85 - 104 mmHg [facility] Bicarbonate, Arterial 22.2 20.0 - 26.0 mmol/L [facility] Base Excess, Arterial -0.8 -3.0 - 3.0 mmol/L [facility] Hgb Blood Gas 14.7 13.7 - 16.5 gm/dL [facility] Oxyhemoglobin, Arterial 94.7 94.0 - 97.0 % [facility] Carboxyhemoglob in, Arterial 0.3 % [facility] Comment: Nonsmokers: 0.5-1.5% COHB Smokers: Variable, but usually less than 10% Toxic: 20-30% COHB Lethal: Greater than 60% COHB Methemoglobin, Arterial 0.7 <=1.5 % [facility] Na Whole Blood 142 135 - 145 mmol/L [facility] K Whole Blood 3.8 3.5 - 5.0 mmol/L [facility] Comment: Please note: Patients with WBC >100,000 may have falsely elevated Potassium levels. Contact the Clinical Chemistry Laboratory if there are any questions. ICa Whole Blood 1.19 1.15 - 1.33 mmol/L [facility] Comment: Note: ??Total bilirubin higher than 20 mg/dL may lead to falsely low ionized calcium. CL Whole Blood 109(H) 98 - 107 mmol/L [facility] Gluc Whole Bld 125 65 - 199 mg/dL [facility] Comment:Diabetes: >=200 mg/d L plus symptoms. Lactate WB 1.6 0.5 - 2.2 mmol/L [facility] FIO2 Art 50 % [facility] PF Ratio Art 154 [facility] Blood specimen (specimen) 07/19/2017 11:36 PM EDT 07/19/2017 11:36 PM EDT Sriram Contreras MD POINT OF CARE TEST ORDERABLES Performing Organization Address City/[facility]/ZIP Co de Phone Number [facility] [place] [place] [address] * POCT Glucose (07/19/2017 11:31 PM EDT) Glucose, POC 110 65 - 199 mg/dL [facility] Comment: Supplemental ranges: <140 mg/dL before meals <180 mg/dL all other times of the day Blood specimen (specimen) 07/19/2017 11:31 PM EDT 07/19/2017 11:31 PM EDT Sriram Contreras MD POINT OF CARE TEST ORDERABLES [facility] [place] [place] [address] * Potassium (07/19/2017 11:30 PM EDT) Potassium 3.9 3.5 - 5.0 mmol/L [facility] Comment: Please note: ??Patients [...] ORDERABL ES Performing Organization Address [facility]/ZIP Co de Phone Number [facility] [place] [address] * POCT Glucose (07/19/2017 7:45 PM EDT) [facility] Glucose, POC 100 65 - 199 mg/dL [facility] Comment: Supplemental ranges: <140 mg/dL before meals <180 mg/dL all other times of the day Blood specimen (specimen) 07/19/2017 7:45 PM EDT 07/19/2017 7:45 PM EDT Sriram Contreras MD POINT OF CARE TEST ORDERABLES Performing Organization Address [facility]/ZIP Co de Phone Number [facility] [place] [place] [address] * Blood culture (07/19/2017 7:00 PM EDT) [facility] Blood Culture No growth at 5 days. [facility] Blood specimen (specimen) STRUCTURE OF LEFT WRIST REGION / Unknown 07/19/2017 7:00 PM EDT 07/19/2017 7:50 PM EDT Narrative Resulting Agency Comment Spec In Lab Sriram Contreras MD MICROBIOLOGY - BLO OD ORDERABLES Performing Organization Address [facility]/ZIP Co de Phone Number [facility] [place] [place] [address] * Blood culture (07/19/2017 6:50 PM EDT) Blood Culture No growth at 5 days. [facility] Blood specimen (specimen) STRUCTURE OF RIGHT WRIST REGION / Unknown 07/19/2017 6:50 PM EDT 07/19/2017 7:51 PM EDT Narrative Resulting Agency Comment Spec In Lab Sriram Contreras MD MICROBIOLOGY - BLO OD ORDERABLES [facility] [place] [address] * XR Chest PA or AP 1 [...] EDT) pH, Arterial 7.49(H) 7.35 - 7.45 [facility] PCO2, Arterial 32(L) 35 - 45 mmHg [facility] PO2, Arterial 66(L) 85 - 104 mmHg [facility] Bicarbonate, Arterial 23.2 20.0 - 26.0 mmol/L [facility] Base Excess, Arterial -0.2 -3.0 - 3.0 mmol/L [facility] Hgb Blood Gas 15.5 13.7 - 16.5 gm/dL [facility] Oxyhemoglobin, Arterial 93.1(L) 94.0 - 97.0 % [facility] Carboxyhemoglob in, Arterial 0.4 % [facility] Comment: Nonsmokers: 0.5-1.5% COHB Smokers: Variable, but usually less than 10% Toxic: 20-30% COHB Lethal: Greater than 60% COHB Methemoglobin, Arterial 0.6 <=1.5 % [facility] Na Whole Blood 158(H) 135 - 145 mmol/L [facility] K Whole Blood 4.0 3.5 - 5.0 mmol/L [facility] Comment: Please note: Patients with WBC >100,000 may have falsely elevated Potassium levels. Contact the Clinical Chemistry Laboratory if there are any questions. ICa Whole Blood 1.14(L) 1.15 - 1.33 mmol/L [facility] Comment: Note: ??Total bilirubin higher than 20 mg/dL may lead to falsely low ionized calcium. CL Whole Blood 120(H) 98 - 107 mmol/L [facility] Gluc Whole Bld 116 65 - 199 mg/dL [facility] Comment:Diabetes: >=200 mg/d L plus symptoms. Lactate WB 1.6 0.5 - 2.2 mmol/L [facility] FIO2 Art 100 % [facility] PF Ratio Art 66 [facility] Blood specimen (specimen) 07/19/2017 5:12 PM EDT 07/19/2017 5:12 PM EDT Sriram Contreras MD POINT OF CARE TEST ORDERABLES Performing Organization Address City/[facility]/ZIP Co de Phone Number [facility] [place] [place] [address] * EKG 12 Lead (07/19/2017 4:55 PM EDT) Ventricular rate 85 BPM MUSE SYSTEM Atrial Rate 326 BPM MUSE SYSTEM QRS Duration 92 ms MUSE SYSTEM Q-T Interval 388 ms MUSE SYSTEM QTC Calculated (Bezet) 461 ms MUSE SYSTEM Calculated R Sargeant 65 degrees MUSE SYSTEM Calculated T Sargeant 4 degrees MUSE SYSTEM INTERPRETATION Atrial fibrillation [...] Contreras MD ECG ORDERABLES Performing Organization Address City/[facility]/ZIP Co de Phone Number MUSE SYSTEM * Phosphorus (07/19/2017 4:50 PM EDT) [facility] Phosphorus 3.0 2.5 - 4.5 mg/dL [facility] Blood specimen (specimen) 07/19/2017 4:50 PM EDT 07/19/2017 5:05 PM EDT Narrative Resulting Agency Comment Spec In Lab Sriram Contreras MD CHEMISTRY ORDERABL ES Performing Organization Address City/[facility]/ZIP Co de Phone Number [facility] [place] [place] [address] * (ABNORMAL) Basic Metabolic Panel (non-fasting) (07/19/2017 4:50 PM EDT) Glucose 118 65 - 199 mg/dL [facility] Comment:Diabetes: >=200 mg/d L plus symptoms Blood Urea Nitrogen 19 10 - 20 mg/dL [facility] Creatinine 0.79(L) 0.80 - 1.50 mg/dL [facility] Comment: Please note that the pediatric reference intervals supplied above were not validated at [facility]. Results from pediatric patients should be interpreted in conjunction to the patient's age, height and muscle mass. Sodium 144 135 - 145 mmol/L [facility] Potassium 3.5 3.5 - 5.0 mmol/L [facility] Comment: Please note: ??Patients with WBC >100,000 may have falsely elevated Potassium levels. ??For accurate Potassium quantification in these patients send serum separator tube (gold top) for subsequent determinations. ??Contact the Clinical Chemistry Laboratory if there are any questions. Chloride 106 98 - 107 mmol/L [facility] Carbon Dioxide 23 22 - 31 mmol/L [facility] Anion Gap 15 5 - 15 mmol/L [facility] Calcium 8.7 8.5 - 10.5 mg/dL [facility] Est Glomerular Filtration Rate [...] the following links into your internet browser. [email or web address] Blood specimen (specimen) 07/19/2017 4:50 PM EDT 07/19/2017 5:05 PM EDT Narrative Resulting Agency Comment Spec In Lab Sriram Contreras MD CHEMISTRY ORDERABL ES [facility] [place] [place] [address] * Magnesium (07/19/2017 4:50 PM EDT) Magnesium 0.86 0.69 - 1.07 mmol/L [facility] Blood specimen (specimen) 07/19/2017 4:50 PM EDT 07/19/2017 5:05 PM EDT Narrative Resulting Agency Comment Spec In Lab Sriram Contreras MD CHEMISTRY ORDERABL ES Performing Organization Address [facility]/ZIP Co de Phone Number [facility] [place] [address] * POCT Glucose (07/19/2017 3:37 PM EDT) Glucose, POC 101 65 - 199 mg/dL [facility] Comment: Supplemental ranges: <140 mg/dL before meals <180 mg/dL all other times of the day Blood specimen (specimen) 07/19/2017 3:37 PM EDT 07/19/2017 3:37 PM EDT Sriram Contreras MD POINT OF CARE TEST ORDERABLES Performing Organization Address [facility] Co de Phone Number [facility] [place] [address] * XR Chest PA or AP 1 [...] Glucose, POC 100 65 - 199 mg/dL [facility] Comment: Supplemental ranges: <140 mg/dL before meals <180 mg/dL all other times of the day Blood specimen (specimen) 07/19/2017 12:36 PM EDT 07/19/2017 12:36 PM EDT Sriram Contreras MD POINT OF CARE TEST ORDERABLES Performing Organization Address [facility] Co de Phone Number [facility] [place] [address] * Potassium (07/19/2017 12:30 PM EDT) Potassium 3.7 3.5 - 5.0 mmol/L [facility] Comment: Please note: ??Patients [...] ORDERABL ES Performing Organization Address [facility] Co de Phone Number [facility] [place] [address] * (ABNORMAL) BLOOD GAS 2 ARTERIAL (07/19/2017 12:17 PM EDT) pH, Arterial 7.50(H) 7.35 - 7.45 [facility] PCO2, Arterial 32(L) 35 - 45 mmHg [facility] PO2, Arterial 60(L) 85 - 104 mmHg [facility] Bicarbonate, Arterial 23.7 20.0 - 26.0 mmol/L [facility] Base Excess, Arterial 0.5 -3.0 - 3.0 mmol/L [facility] Hgb Blood Gas 14.8 13.7 - 16.5 gm/dL [facility] Oxyhemoglobin, Arterial 91.1(L) 94.0 - 97.0 % [facility] Carboxyhemoglob in, Arterial 0.1 % [facility] Comment: Nonsmokers: 0.5-1.5% COHB Smokers: Variable, but usually less than 10% Toxic: 20-30% COHB Lethal: Greater than 60% COHB Methemoglobin, Arterial 0.6 <=1.5 % [facility] Na Whole Blood 145 135 - 145 mmol/L [facility] K Whole Blood 3.7 3.5 - 5.0 mmol/L [facility] Comment: Please note: Patients with WBC >100,000 may have falsely elevated Potassium levels. Contact the Clinical Chemistry Laboratory if there are any questions. ICa Whole Blood 1.16 1.15 - 1.33 mmol/L [facility] Comment: Note: ??Total bilirubin higher than 20 mg/dL may lead to falsely low ionized calcium. CL Whole Blood 109(H) 98 - 107 mmol/L [facility] Gluc Whole Bld 115 65 - 199 mg/dL [facility] Comment:Diabetes: >=200 mg/d L plus symptoms. Lactate WB 1.3 0.5 - 2.2 mmol/L [facility] FIO2 Art 45 % [facility] PF Ratio Art 133 [facility] Blood specimen (specimen) 07/19/2017 12:17 PM EDT 07/19/2017 12:17 PM EDT Sriram Contreras MD POINT OF CARE TEST ORDERABLES Performing Organization Address [facility] Co de Phone Number [facility] [place] [address] * Potassium (07/19/2017 8:50 AM EDT) Potassium 3.8 3.5 - 5.0 mmol/L [facility] Comment: Please note: ??Patients [...] ORDERABL ES Performing Organization Address [facility] Co de Phone Number [facility] [place] [address] * Folate, serum (07/19/2017 8:50 AM EDT) Folate 16.6 4.8 - 24.2 ng/mL [facility] Blood specimen (specimen) 07/19/2017 8:50 AM EDT 07/19/2017 9:11 AM EDT Narrative Resulting Agency Comment Spec In Lab Sriram Contreras MD CHEMISTRY ORDERABL ES Performing Organization Address [facility] Co de Phone Number [facility] [place] [address] * Vitamin B12 (07/19/2017 8:50 AM EDT) Vitamin B12 468 207 - 974 pg/mL [facility] Blood specimen (specimen) 07/19/2017 8:50 AM EDT 07/19/2017 9:11 AM EDT Narrative Resulting Agency Comment Spec In Lab Sriram Contreras MD CHEMISTRY ORDERABL ES Performing Organization Address [facility] [[email or web address]] de Phone Number [facility] [place] [address] * (ABNORMAL) TSH (07/19/2017 8:50 AM EDT) Thyroid Stimulating Hormone 6.80(H) 0.27 - 4.20 mlU/ML [facility] Blood specimen (specimen) 07/19/2017 8:50 AM EDT 07/19/2017 9:11 AM EDT Narrative Resulting Agency Comment Spec In Lab Sriram Contreras MD CHEMISTRY ORDERABL ES Performing Organization Address [facility] Co de Phone Number [facility] [place] [address] * Urine Hold (07/19/2017 8:07 AM EDT) Hold, Urine Sample in lab. [facility] Urine specimen (specimen) Urine / Unknown 07/19/2017 8:07 AM EDT 07/19/2017 8:35 AM EDT Sriram Contreras MD URINE ORDERABLES Performing Organization Address [facility] Co de Phone Number [facility] [place] [address] * (ABNORMAL) Urinalysis with reflex Culture (07/19/2017 8:07 AM EDT) Glucose, Urine Dipstick Negative Negative mg/dL [facility] Protein, Urine Dipstick 30(A) Negative mg/dL [facility] Bilirubin, Urine Dipstick Negative Negative mg/dL [facility] Comment: Clinical correlation required for positive Urine Bilirubin results as false positive may occur with some drugs and drug related products. If a false positive is suspected a serum total bilirubin should be considered if clinically indicated. Urobilinogen, Urine Dipstick >=4.0(A) Normal mg/dL [facility] pH, Urn (dipstick) 7.0 5.0 - 8.0 [facility] Blood, Urine Dipstick Moderate(A) Negative mg/dL [facility] Ketone, Urine Dipstick Negative Negative mg/dL [facility] Nitrite, Urine Dipstick Negative Negative [facility] Leukocytes, Urine Dipstick Trace(A) Negative [facility] Appearance, Urine Dipstick Clear Clear [facility] Specific [place] Urine Automated 1.025 1.002 - 1.030 [facility] Color, Urine Dipstick Yellow Yellow [facility] RBC, Urine 161(H) 0 - 3 /HPF [facility] WBC, Urine 1 0 - 3 /HPF [facility] Reflex to Culture No [facility] Urine specimen obtained via indwelling urinary catheter (specimen) 07/19/2017 8:07 AM EDT 07/19/2017 8:34 AM EDT Narrative Resulting Agency Comment Spec In Lab Sriram Contreras MD URINE ORDERABLES Performing Organization Address [facility] Co de Phone Number [facility] [place] [address] * POCT Glucose (07/19/2017 7:42 AM EDT) Glucose, POC 99 65 - 199 mg/dL [facility] Comment: Supplemental ranges: <140 mg/dL before meals <180 mg/dL all other times of the day Blood specimen (specimen) 07/19/2017 7:42 AM EDT 07/19/2017 7:42 AM EDT Sriram Contreras MD POINT OF CARE TEST ORDERABLES Performing Organization Address City/[facility]/ZIP Co de Phone Number [facility] [place] [address] * POCT Glucose (07/19/2017 4:11 AM EDT) Glucose, POC 93 65 - 199 mg/dL [facility] Comment: Supplemental ranges: <140 mg/dL before meals <180 mg/dL all other times of the day Blood specimen (specimen) 07/19/2017 4:11 AM EDT 07/19/2017 4:11 AM EDT Sriram Contreras MD POINT OF CARE TEST ORDERABLES [facility] [place] [place] [address] * (ABNORMAL) Differential, Automated (07/19/2017 2:30 AM EDT) Pathologist [facility] Neutrophil % 77.9 % [facility] Neutrophil Absolute 9.99(H) 1.70 - 6.10 x10(3)/mc L [facility] Lymph % 9.8 % [facility] Lymphocytes Abs 1.2 0.9 - 3.2 x10(3)/mc L [facility] Monocyte % 11.5 % [facility] Monocyte Abs 1.5(H) 0.3 - 0.9 x10(3)/mc L [facility] Eos % 0.1 % [facility] Eosinophils Abs 0.0 0.0 - 0.4 x10(3)/mc L [facility] Basophil % 0.2 % [facility] Baso Absolute 0.0 0.0 - 0.1 x10(3)/mc L [facility] Immature Gran % 0.50 % [facility] Comment: Immature granulocytes(IG's)percentage and absolute count will include metamyelocytes, myelocytes, and promyelocytes. Blood smears from CBCs yielding IG's will be scanned manually for concordance. If this scan disagrees with the automated IG or if promyelocytes are noted, a manual differential will be performed. Immature Gran Absolute 0.07(H) 0.00 - 0.04 x10(3)/ L [facility] Blood specimen (specimen) 07/19/2017 2:30 AM EDT 07/19/2017 2:34 AM EDT Narrative Resulting Agency Comment Spec In Lab Sriram Contreras MD HEMATOLOGY ORDERAB LES Performing Organization Address City/State/[facility] Co de Phone Number [facility] [place] [place] [address] * (ABNORMAL) Hemogram (07/19/2017 2:30 AM EDT) White Blood Cell 12.8(H) 4.0 - 9.5 x10(3)/[facility] Red Blood Cell 4.30(L) 4.58 - 5.54 x10(6)/[facility] Hemoglobin 13.5(L) 13.7 - 16.5 gm/dL [facility] Hematocrit 38.6(L) 40.5 - 48.5 % [facility] Mean Cell Volume 89.8 82.9 - 93.1 [facility] Mean Cell Hemoglobin 31.4 27.5 - 32.1 pg [facility] Mean Cell Hemoglobin Concentration 35.0 32.0 - 35.7 gm/dL [facility] Platelet 176 145 - 357 x10(3)/[facility] RDW Standard Deviation 45.1(H) 36.0 - 45.0 [facility] RDW coefficient of variation 13.9(H) 11.4 - 13.8 % [facility] Mean Platelet Volume 9.8 7.6 - 12.9 [facility] NRBC% auto 0.0 % [facility] NRBC Absolute 0.000 0.000 - 0.000 x10(3)/[facility] Blood specimen (specimen) 07/19/2017 2:30 AM EDT 07/19/2017 2:34 AM EDT Narrative Resulting Agency Comment Spec In Lab Sriram Contreras MD HEMATOLOGY ORDERAB LES [facility] [place] [place] [address] * (ABNORMAL) Basic Metabolic Panel (non-fasting) (07/19/2017 2:30 AM EDT) Glucose 102 65 - 199 mg/dL [facility] Comment:Diabetes: >=200 mg/d L plus symptoms Blood Urea Nitrogen 23(H) 10 - 20 mg/dL [facility] Creatinine 0.87 0.80 - 1.50 mg/dL [facility] Comment: Please note that the pediatric reference intervals supplied above were not validated at [facility]. Results from pediatric patients should be interpreted in conjunction to the patient's age, height and muscle mass. Sodium 144 135 - 145 mmol/L [facility] Potassium 3.4(L) 3.5 - 5.0 mmol/L [facility] Comment: Please note: ??Patients with WBC >100,000 may have falsely elevated Potassium levels. ??For accurate Potassium quantification in these patients send serum separator tube (gold top) for subsequent determinations. ??Contact the Clinical Chemistry Laboratory if there are any questions. Chloride 106 98 - 107 mmol/L [facility] Carbon Dioxide 23 22 - 31 mmol/L [facility] Anion Gap 15 5 - 15 mmol/L [facility] Calcium 8.5 8.5 - 10.5 mg/dL [facility] Est Glomerular Filtration Rate [...] the following links into your internet browser. [email or web address] Blood specimen (specimen) 07/19/2017 2:30 AM EDT 07/19/2017 2:34 AM EDT Narrative Resulting Agency Comment Spec In Lab Sriram Contreras MD CHEMISTRY ORDERABL ES Performing Organization Address [facility] Co de Phone Number [facility] [place] [address] * (ABNORMAL) Prealbumin (07/19/2017 2:30 AM EDT) Prealbumin 17(L) 20 - 40 mg/dL [facility] Comment: Prealbumin levels are generally lower in the pediatric population; adult concentrations are usually attained near puberty. Blood specimen (specimen) 07/19/2017 2:30 AM EDT 07/19/2017 2:34 AM EDT Narrative Resulting Agency Comment Spec In Lab Sriram Contreras MD CHEMISTRY ORDERABL ES Performing Organization Address [facility] Co de Phone Number [facility] [place] [place] [address] * (ABNORMAL) BLOOD GAS 2 ARTERIAL (07/18/2017 11:53 PM EDT) pH, Arterial 7.50(H) 7.35 - 7.45 [facility] PCO2, Arterial 32(L) 35 - 45 mmHg [facility] PO2, Arterial 61(L) 85 - 104 mmHg [facility] Bicarbonate, Arterial 24.5 20.0 - 26.0 mmol/L [facility] Base Excess, Arterial 1.3 -3.0 - 3.0 mmol/L [facility] Hgb Blood Gas 14.1 13.7 - 16.5 gm/dL [facility] Oxyhemoglobin, Arterial 90.9(L) 94.0 - 97.0 % [facility] Carboxyhemoglob in, Arterial 0.3 % [facility] Comment: Nonsmokers: 0.5-1.5% COHB Smokers: Variable, but usually less than 10% Toxic: 20-30% COHB Lethal: Greater than 60% COHB Methemoglobin, Arterial 0.7 <=1.5 % [facility] Na Whole Blood 144 135 - 145 mmol/L [facility] K Whole Blood 3.3(L) 3.5 - 5.0 mmol/L [facility] Comment: Please note: Patients with WBC >100,000 may have falsely elevated Potassium levels. Contact the Clinical Chemistry Laboratory if there are any questions. ICa Whole Blood 1.17 1.15 - 1.33 mmol/L [facility] Comment: Note: ??Total bilirubin higher than 20 mg/dL may lead to falsely low ionized calcium. CL Whole Blood 109(H) 98 - 107 mmol/L [facility] Gluc Whole Bld 104 65 - 199 mg/dL [facility] Comment:Diabetes: >=200 mg/d L plus symptoms. Lactate WB 1.3 0.5 - 2.2 mmol/L [facility] FIO2 Art 45 % [facility] PF Ratio Art 136 [facility] Blood specimen (specimen) 07/18/2017 11:53 PM EDT 07/18/2017 11:53 PM EDT Sriram Contreras MD POINT OF CARE TEST ORDERABLES [facility] [place] [place] [address] * POCT Glucose (07/18/2017 11:49 PM EDT) Glucose, POC 102 65 - 199 mg/dL [facility] Comment: Supplemental ranges: <140 mg/dL before meals <180 mg/dL all other times of the day Blood specimen (specimen) 07/18/2017 11:49 PM EDT 07/18/2017 11:49 PM EDT Sriram Contreras MD POINT OF CARE TEST ORDERABLES [facility] [place] [place] [address] * POCT Glucose (07/18/2017 8:44 PM EDT) Glucose, POC 108 65 - 199 mg/dL [facility] Comment: Supplemental ranges: <140 mg/dL before meals <180 mg/dL all other times of the day Blood specimen (specimen) 07/18/2017 8:44 PM EDT 07/18/2017 8:44 PM EDT Sriram Contreras MD POINT OF CARE TEST ORDERABLES Performing Organization Address City/[facility]/ZIP Co de Phone Number [facility] [place] [place] [address] * (ABNORMAL) BLOOD GAS 2 ARTERIAL (07/18/2017 5:22 PM EDT) pH, Arterial 7.54(H) 7.35 - 7.45 [facility] PCO2, Arterial 31(L) 35 - 45 mmHg [facility] PO2, Arterial 55(L) 85 - 104 mmHg [facility] Bicarbonate, Arterial 25.9 20.0 - 26.0 mmol/L [facility] Base Excess, Arterial 3.3(H) -3.0 - 3.0 mmol/L [facility] Hgb Blood Gas 14.2 13.7 - 16.5 gm/dL [facility] Oxyhemoglobin, Arterial 90.3(L) 94.0 - 97.0 % [facility] Carboxyhemoglob in, Arterial 0.3 % [facility] Comment: Nonsmokers: 0.5-1.5% COHB Smokers: Variable, but usually less than 10% Toxic: 20-30% COHB Lethal: Greater than 60% COHB Methemoglobin, Arterial 0.5 <=1.5 % [facility] Na Whole Blood 144 135 - 145 mmol/L [facility] K Whole Blood 3.3(L) 3.5 - 5.0 mmol/L [facility] Comment: Please note: Patients with WBC >100,000 may have falsely elevated Potassium levels. Contact the Clinical Chemistry Laboratory if there are any questions. ICa Whole Blood 1.18 1.15 - 1.33 mmol/L [facility] Comment: Note: ??Total bilirubin higher than 20 mg/dL may lead to falsely low ionized calcium. CL Whole Blood 108(H) 98 - 107 mmol/L [facility] Gluc Whole Bld 130 65 - 199 mg/dL [facility] Comment:Diabetes: >=200 mg/d L plus symptoms. Lactate WB 1.6 0.5 - 2.2 mmol/L [facility] FIO2 Art 40 % [facility] PF Ratio Art 138 [facility] Blood specimen (specimen) 07/18/2017 5:22 PM EDT 07/18/2017 5:22 PM EDT Sriram Contreras MD POINT OF CARE TEST ORDERABLES Performing Organization Address [facility] Co de Phone Number [facility] [place] [address] * POCT Glucose (07/18/2017 3:42 PM EDT) Glucose, POC 119 65 - 199 mg/dL [facility] Comment: Supplemental ranges: <140 mg/dL before meals <180 mg/dL all other times of the day Blood specimen (specimen) 07/18/2017 3:42 PM EDT 07/18/2017 3:42 PM EDT Sriram Contreras MD POINT OF CARE TEST ORDERABLES [facility] [place] [address] * POCT Glucose (07/18/2017 1:05 PM EDT) Glucose, POC 118 65 - 199 mg/dL [facility] Comment: Supplemental ranges: <140 mg/dL before meals <180 mg/dL all other times of the day Blood specimen (specimen) 07/18/2017 1:05 PM EDT 07/18/2017 1:05 PM EDT Sriram Contreras MD POINT OF CARE TEST ORDERABLES [facility] [place] [address] * (ABNORMAL) BLOOD GAS 2 ARTERIAL (07/18/2017 11:47 AM EDT) pH, Arterial 7.51(H) 7.35 - 7.45 [facility] PCO2, Arterial 33(L) 35 - 45 mmHg [facility] PO2, Arterial 94 85 - 104 mmHg [facility] Bicarbonate, Arterial 25.1 20.0 - 26.0 mmol/L [facility] Base Excess, Arterial 2.0 -3.0 - 3.0 mmol/L [facility] Hgb Blood Gas 14.4 13.7 - 16.5 gm/dL [facility] Oxyhemoglobin, Arterial 96.1 94.0 - 97.0 % [facility] Carboxyhemoglob in, Arterial 0.3 % [facility] Comment: Nonsmokers: 0.5-1.5% COHB Smokers: Variable, but usually less than 10% Toxic: 20-30% COHB Lethal: Greater than 60% COHB Methemoglobin, Arterial 0.6 <=1.5 % [facility] Na Whole Blood 141 135 - 145 mmol/L [facility] K Whole Blood 3.6 3.5 - 5.0 mmol/L [facility] Comment: Please note: Patients with WBC >100,000 may have falsely elevated Potassium levels. Contact the Clinical Chemistry Laboratory if there are any questions. ICa Whole Blood 1.17 1.15 - 1.33 mmol/L [facility] Comment: Note: ??Total bilirubin higher than 20 mg/dL may lead to falsely low ionized calcium. CL Whole Blood 104 98 - 107 mmol/L [facility] Gluc Whole Bld 228(H) 65 - 199 mg/dL [facility] Comment:Diabetes: >=200 mg/d L plus symptoms. Lactate WB 1.7 0.5 - 2.2 mmol/L [facility] FIO2 Art 50 % [facility] PF Ratio Art 188 [facility] Blood specimen (specimen) 07/18/2017 11:47 AM EDT 07/18/2017 11:47 AM EDT Sriram Contreras MD POINT OF CARE TEST ORDERABLES Performing Organization Address City/State/[facility] Co de Phone Number [facility] [place] [place] [address] * (ABNORMAL) BLOOD GAS 2 ARTERIAL (07/18/2017 7:56 AM EDT) pH, Arterial 7.50(H) 7.35 - 7.45 [facility] PCO2, Arterial 31(L) 35 - 45 mmHg [facility] PO2, Arterial 82(L) 85 - 104 mmHg [facility] Bicarbonate, Arterial 24.2 20.0 - 26.0 mmol/L [facility] Base Excess, Arterial 1.0 -3.0 - 3.0 mmol/L [facility] Hgb Blood Gas 13.4(L) 13.7 - 16.5 gm/dL [facility] Oxyhemoglobin, Arterial 95.3 94.0 - 97.0 % [facility] Carboxyhemoglob in, Arterial 0.3 % [facility] Comment: Nonsmokers: 0.5-1.5% COHB Smokers: Variable, but usually less than 10% Toxic: 20-30% COHB Lethal: Greater than 60% COHB Methemoglobin, Arterial 0.5 <=1.5 % [facility] Na Whole Blood 143 135 - 145 mmol/L [facility] K Whole Blood 3.7 3.5 - 5.0 mmol/L [facility] Comment: Please note: Patients with WBC >100,000 may have falsely elevated Potassium levels. Contact the Clinical Chemistry Laboratory if there are any questions. ICa Whole Blood 1.17 1.15 - 1.33 mmol/L [facility] Comment: Note: ??Total bilirubin higher than 20 mg/dL may lead to falsely low ionized calcium. CL Whole Blood 106 98 - 107 mmol/L [facility] Gluc Whole Bld 158 65 - 199 mg/dL [facility] Comment:Diabetes: >=200 mg/d L plus symptoms. Lactate WB 2.5(H) 0.5 - 2.2 mmol/L [facility] FIO2 Art 60 % [facility] PF Ratio Art 137 [facility] Blood specimen (specimen) 07/18/2017 7:56 AM EDT 07/18/2017 7:56 AM EDT Sriram Contreras MD POINT OF CARE TEST ORDERABLES Performing Organization Address City/State/[facility] Co de Phone Number [facility] [place] [address] * (ABNORMAL) BLOOD GAS 2 ARTERIAL (07/18/2017 3:55 AM EDT) pH, Arterial 7.51(H) 7.35 - 7.45 [facility] PCO2, Arterial 34(L) 35 - 45 mmHg [facility] PO2, Arterial 95 85 - 104 mmHg [facility] Bicarbonate, Arterial 26.4(H) 20.0 - 26.0 mmol/L [facility] Base Excess, Arterial 3.4(H) -3.0 - 3.0 mmol/L [facility] Hgb Blood Gas 14.2 13.7 - 16.5 gm/dL [facility] Oxyhemoglobin, Arterial 96.4 94.0 - 97.0 % [facility] Carboxyhemoglob in, Arterial 0.5 % [facility] Comment: Nonsmokers: 0.5-1.5% COHB Smokers: Variable, but usually less than 10% Toxic: 20-30% COHB Lethal: Greater than 60% COHB Methemoglobin, Arterial 0.6 <=1.5 % [facility] Na Whole Blood 142 135 - 145 mmol/L [facility] K Whole Blood 3.6 3.5 - 5.0 mmol/L [facility] Comment: Please note: Patients with WBC >100,000 may have falsely elevated Potassium levels. Contact the Clinical Chemistry Laboratory if there are any questions. ICa Whole Blood 1.17 1.15 - 1.33 mmol/L [facility] Comment: Note: ??Total bilirubin higher than 20 mg/dL may lead to falsely low ionized calcium. CL Whole Blood 105 98 - 107 mmol/L [facility] Gluc Whole Bld 178 65 - 199 mg/dL [facility] Comment:Diabetes: >=200 mg/d L plus symptoms. Lactate WB 3.0(H) 0.5 - 2.2 mmol/L [facility] FIO2 Art 70 % [facility] PF Ratio Art 136 [facility] Blood specimen (specimen) 07/18/2017 3:55 AM EDT 07/18/2017 3:55 AM EDT Sriram Contreras MD POINT OF CARE TEST ORDERABLES [facility] [place] [place] [address] * (ABNORMAL) POCT Glucose (07/18/2017 3:42 AM EDT) Glucose, POC 205(H) 65 - 199 mg/dL [facility] Comment: Supplemental ranges: <140 mg/dL before meals <180 mg/dL all other times of the day Blood specimen (specimen) 07/18/2017 3:42 AM EDT 07/18/2017 3:42 AM EDT Sriram Contreras MD POINT OF CARE TEST ORDERABLES Performing Organization Address City/[facility]/ZIP Co de Phone Number [facility] [place] [place] [address] * (ABNORMAL) Magnesium (07/18/2017 2:20 AM EDT) [facility] Magnesium 1.09(H) 0.69 - 1.07 mmol/L [facility] Blood specimen (specimen) Venous Draw / Unknown 07/18/2017 2:20 AM EDT 07/18/2017 2:31 AM EDT Narrative Resulting Agency Comment Spec In Lab Sriram Contreras MD CHEMISTRY ORDERABL ES Performing Organization Address [facility] Co de Phone Number [facility] [place] [place] [address] * (ABNORMAL) Differential, Automated (07/18/2017 2:20 AM EDT) [facility] Neutrophil % 86.8 % [facility] Neutrophil Absolute 9.28(H) 1.70 - 6.10 x10(3)/mc L [facility] Lymph % 5.8 % [facility] Lymphocytes Abs 0.6(L) 0.9 - 3.2 x10(3)/mc L [facility] Monocyte % 6.5 % [facility] Monocyte Abs 0.7 0.3 - 0.9 x10(3)/mc L [facility] Eos % 0.0 % [facility] Eosinophils Abs 0.0 0.0 - 0.4 x10(3)/mc L [facility] Basophil % 0.2 % [facility] Baso Absolute 0.0 0.0 - 0.1 x10(3)/mc L [facility] Immature Gran % 0.70 % [facility] Comment: Immature granulocytes(IG's)percentage and absolute count will include metamyelocytes, myelocytes, and promyelocytes. Blood smears from CBCs yielding IG's will be scanned manually for concordance. If this scan disagrees with the automated IG or if promyelocytes are noted, a manual differential will be performed. Immature Gran Absolute 0.08(H) 0.00 - 0.04 x10(3)/mc L [facility] Blood specimen (specimen) 07/18/2017 2:20 AM EDT 07/18/2017 2:28 AM EDT Narrative Resulting Agency Comment Spec In Lab Sriram Contreras MD HEMATOLOGY ORDERAB LES Performing Organization Address City/State/[facility] Co de Phone Number [facility] [place] [address] * (ABNORMAL) Hemogram (07/18/2017 2:20 AM EDT) White Blood Cell 10.7(H) 4.0 - 9.5 x10(3)/ L [facility] Red Blood Cell 4.39(L) 4.58 - 5.54 x10(6)/mc L [facility] Hemoglobin 13.6(L) 13.7 - 16.5 gm/dL [facility] Hematocrit 38.8(L) 40.5 - 48.5 % [facility] Mean Cell Volume 88.4 82.9 - 93.1 fL [facility] Mean Cell Hemoglobin 31.0 27.5 - 32.1 pg [facility] Mean Cell Hemoglobin Concentration 35.1 32.0 - 35.7 gm/dL [facility] Platelet 147 145 - 357 x10(3)/mc L [facility] RDW Standard Deviation 43.4 36.0 - 45.0 [facility] RDW coefficient of variation 13.3 11.4 - 13.8 % [facility] Mean Platelet Volume 10.9 7.6 - 12.9 fL [facility] NRBC% auto 0.0 % [facility] NRBC Absolute 0.000 0.000 - 0.000 x10(3)/mc L [facility] Blood specimen (specimen) 07/18/2017 2:20 AM EDT 07/18/2017 2:28 AM EDT Narrative Resulting Agency Comment Spec In Lab Sriram Contreras MD HEMATOLOGY ORDERAB LES [facility] [place] [place] [address] * (ABNORMAL) Basic Metabolic Panel (non-fasting) (07/18/2017 2:20 AM EDT) Glucose 181 65 - 199 mg/dL [facility] Comment:Diabetes: >=200 mg/d L plus symptoms Blood Urea Nitrogen 22(H) 10 - 20 mg/dL [facility] Creatinine 0.74(L) 0.80 - 1.50 mg/dL [facility] Comment: Please note that the pediatric reference intervals supplied above were not validated at [facility]. Results from pediatric patients should be interpreted in conjunction to the patient's age, height and muscle mass. Sodium 145 135 - 145 mmol/L [facility] Potassium 3.7 3.5 - 5.0 mmol/L [facility] Comment: Please note: ??Patients with WBC >100,000 may have falsely elevated Potassium levels. ??For accurate Potassium quantification in these patients send serum separator tube (gold top) for subsequent determinations. ??Contact the Clinical Chemistry Laboratory if there are any questions. Chloride 105 98 - 107 mmol/L [facility] Carbon Dioxide 25 22 - 31 mmol/L [facility] Anion Gap 15 5 - 15 mmol/L [facility] Calcium 8.8 8.5 - 10.5 mg/dL [facility] Est Glomerular Filtration Rate [...] the following links into your internet browser. [email or web address] Blood specimen (specimen) 07/18/2017 2:20 AM EDT 07/18/2017 2:28 AM EDT Narrative Resulting Agency Comment Spec In Lab Sriram Contreras MD CHEMISTRY ORDERABL ES [facility] [place] [place] [address] * (ABNORMAL) BLOOD GAS 2 ARTERIAL (07/17/2017 11:36 PM EDT) pH, Arterial 7.51(H) 7.35 - 7.45 [facility] PCO2, Arterial 32(L) 35 - 45 mmHg [facility] PO2, Arterial 60(L) 85 - 104 mmHg [facility] Bicarbonate, Arterial 25.0 20.0 - 26.0 mmol/L [facility] Base Excess, Arterial 2.0 -3.0 - 3.0 mmol/L [facility] Hgb Blood Gas 14.8 13.7 - 16.5 gm/dL [facility] Oxyhemoglobin, Arterial 92.1(L) 94.0 - 97.0 % [facility] Carboxyhemoglob in, Arterial 0.3 % [facility] Comment: Nonsmokers: 0.5-1.5% COHB Smokers: Variable, but usually less than 10% Toxic: 20-30% COHB Lethal: Greater than 60% COHB Methemoglobin, Arterial 0.5 <=1.5 % [facility] Na Whole Blood 143 135 - 145 mmol/L [facility] K Whole Blood 3.7 3.5 - 5.0 mmol/L [facility] Comment: Please note: Patients with WBC >100,000 may have falsely elevated Potassium levels. Contact the Clinical Chemistry Laboratory if there are any questions. ICa Whole Blood 1.16 1.15 - 1.33 mmol/L [facility] Comment: Note: ??Total bilirubin higher than 20 mg/dL may lead to falsely low ionized calcium. CL Whole Blood 104 98 - 107 mmol/L [facility] Gluc Whole Bld 202(H) 65 - 199 mg/dL [facility] Comment:Diabetes: >=200 mg/d L plus symptoms. Lactate WB 2.9(H) 0.5 - 2.2 mmol/L [facility] FIO2 Art 60 % [facility] PF Ratio Art 100 [facility] Blood specimen (specimen) 07/17/2017 11:36 PM EDT 07/17/2017 11:36 PM EDT Sriram Contreras MD POINT OF CARE TEST ORDERABLES Performing Organization Address City/[facility] Co de Phone Number [facility] [place] [address] * (ABNORMAL) POCT Glucose (07/17/2017 11:34 PM EDT) Glucose, POC 202(H) 65 - 199 mg/dL [facility] Comment: Supplemental ranges: <140 mg/dL before meals <180 mg/dL all other times of the day Blood specimen (specimen) 07/17/2017 11:34 PM EDT 07/17/2017 11:34 PM EDT Sriram Contreras MD POINT OF CARE TEST ORDERABLES Performing Organization Address City/[facility]/ZIP Co de Phone Number [facility] [place] [place] [address] * Magnesium (07/17/2017 10:10 PM EDT) Magnesium 0.87 0.69 - 1.07 mmol/L [facility] Blood specimen (specimen) 07/17/2017 10:10 PM EDT 07/17/2017 10:18 PM EDT Narrative Resulting Agency Comment Spec In Lab Sriram Contreras MD CHEMISTRY ORDERABL ES [facility] [place] [place] [address] * (ABNORMAL) BLOOD GAS 2 ARTERIAL (07/17/2017 7:51 PM EDT) pH, Arterial 7.49(H) 7.35 - 7.45 [facility] PCO2, Arterial 36 35 - 45 mmHg [facility] PO2, Arterial 67(L) 85 - 104 mmHg [facility] Bicarbonate, Arterial 26.8(H) 20.0 - 26.0 mmol/L [facility] Base Excess, Arterial 3.4(H) -3.0 - 3.0 mmol/L [facility] Hgb Blood Gas 14.3 13.7 - 16.5 gm/dL [facility] Oxyhemoglobin, Arterial 93.4(L) 94.0 - 97.0 % [facility] Carboxyhemoglob in, Arterial 0.3 % [facility] Comment: Nonsmokers: 0.5-1.5% COHB Smokers: Variable, but usually less than 10% Toxic: 20-30% COHB Lethal: Greater than 60% COHB Methemoglobin, Arterial 0.6 <=1.5 % [facility] Na Whole Blood 143 135 - 145 mmol/L [facility] K Whole Blood 3.7 3.5 - 5.0 mmol/L [facility] Comment: Please note: Patients with WBC >100,000 may have falsely elevated Potassium levels. Contact the Clinical Chemistry Laboratory if there are any questions. ICa Whole Blood 1.17 1.15 - 1.33 mmol/L [facility] Comment: Note: ??Total bilirubin higher than 20 mg/dL may lead to falsely low ionized calcium. CL Whole Blood 106 98 - 107 mmol/L [facility] Gluc Whole Bld 178 65 - 199 mg/dL [facility] Comment:Diabetes: >=200 mg/d L plus symptoms. Lactate WB 2.8(H) 0.5 - 2.2 mmol/L [facility] FIO2 Art 60 % [facility] PF Ratio Art 112 [facility] Blood specimen (specimen) 07/17/2017 7:51 PM EDT 07/17/2017 7:51 PM EDT Sriram Contreras MD POINT OF CARE TEST ORDERABLES Performing Organization Address [facility]/ZIP Co de Phone Number [facility] [place] [place] [address] * POCT Glucose (07/17/2017 7:50 PM EDT) Glucose, POC 153 65 - 199 mg/dL [facility] Comment: Supplemental ranges: <140 mg/dL before meals <180 mg/dL all other times of the day Blood specimen (specimen) 07/17/2017 7:50 PM EDT 07/17/2017 7:50 PM EDT Sriram Contreras MD POINT OF CARE TEST ORDERABLES Performing Organization Address City/[facility] Co de Phone Number [facility] [place] [place] [address] * (ABNORMAL) BLOOD GAS 2 ARTERIAL (07/17/2017 3:20 PM EDT) pH, Arterial 7.51(H) 7.35 - 7.45 [facility] PCO2, Arterial 31(L) 35 - 45 mmHg [facility] PO2, Arterial 67(L) 85 - 104 mmHg [facility] Bicarbonate, Arterial 24.3 20.0 - 26.0 mmol/L [facility] Base Excess, Arterial 1.3 -3.0 - 3.0 mmol/L [facility] Hgb Blood Gas 14.1 13.7 - 16.5 gm/dL [facility] Oxyhemoglobin, Arterial 93.8(L) 94.0 - 97.0 % [facility] Carboxyhemoglob in, Arterial 0.3 % [facility] Comment: Nonsmokers: 0.5-1.5% COHB Smokers: Variable, but usually less than 10% Toxic: 20-30% COHB Lethal: Greater than 60% COHB Methemoglobin, Arterial 0.5 <=1.5 % [facility] Na Whole Blood 141 135 - 145 mmol/L [facility] K Whole Blood 3.7 3.5 - 5.0 mmol/L [facility] Comment: Please note: Patients with WBC >100,000 may have falsely elevated Potassium levels. Contact the Clinical Chemistry Laboratory if there are any questions. ICa Whole Blood 1.15(L) 1.15 - 1.33 mmol/L [facility] Comment: Note: ??Total bilirubin higher than 20 mg/dL may lead to falsely low ionized calcium. CL Whole Blood 105 98 - 107 mmol/L [facility] Gluc Whole Bld 204(H) 65 - 199 mg/dL [facility] Comment:Diabetes: >=200 mg/d L plus symptoms. Lactate WB 2.0 0.5 - 2.2 mmol/L [facility] FIO2 Art 50 % [facility] PF Ratio Art 134 [facility] Blood specimen (specimen) 07/17/2017 3:20 PM EDT 07/17/2017 3:20 PM EDT Sriram Contreras MD POINT OF CARE TEST ORDERABLES [facility] [place] [place] [address] * (ABNORMAL) BLOOD GAS 2 ARTERIAL (07/17/2017 12:50 PM EDT) pH, Arterial 7.51(H) 7.35 - 7.45 [facility] PCO2, Arterial 30(L) 35 - 45 mmHg [facility] PO2, Arterial 52(L) 85 - 104 mmHg [facility] Bicarbonate, Arterial 23.7 20.0 - 26.0 mmol/L [facility] Base Excess, Arterial 0.8 -3.0 - 3.0 mmol/L [facility] Hgb Blood Gas 14.0 13.7 - 16.5 gm/dL [facility] Oxyhemoglobin, Arterial 89.4(L) 94.0 - 97.0 % [facility] Carboxyhemoglob in, Arterial 0.3 % [facility] Comment: Nonsmokers: 0.5-1.5% COHB Smokers: Variable, but usually less than 10% Toxic: 20-30% COHB Lethal: Greater than 60% COHB Methemoglobin, Arterial 0.5 <=1.5 % [facility] Na Whole Blood 140 135 - 145 mmol/L [facility] K Whole Blood 3.9 3.5 - 5.0 mmol/L [facility] Comment: Please note: Patients with WBC >100,000 may have falsely elevated Potassium levels. Contact the Clinical Chemistry Laboratory if there are any questions. ICa Whole Blood 1.18 1.15 - 1.33 mmol/L [facility] Comment: Note: ??Total bilirubin higher than 20 mg/dL may lead to falsely low ionized calcium. CL Whole Blood 106 98 - 107 mmol/L [facility] Gluc Whole Bld 195 65 - 199 mg/dL [facility] Comment:Diabetes: >=200 mg/d L plus symptoms. Lactate WB 2.3(H) 0.5 - 2.2 mmol/L [facility] FIO2 Art 50 % [facility] PF Ratio Art 104 [facility] Blood specimen (specimen) 07/17/2017 12:50 PM EDT 07/17/2017 12:50 PM EDT Sriram Contreras MD POINT OF CARE TEST ORDERABLES [facility] [address] * XR Chest PA or AP 1 [...] residents interpretationand agree with the findings, STANISLAV Anaya LOR at 07/17/2017 2:14 PM Sriram Contreras MD IMG DX ORDERABLES * (ABNORMAL) BLOOD GAS 2 ARTERIAL (07/17/2017 11:54 AM EDT) pH, Arterial 7.48(H) 7.35 - 7.45 [facility] PCO2, Arterial 34(L) 35 - 45 mmHg [facility] PO2, Arterial 55(L) 85 - 104 mmHg [facility] Bicarbonate, Arterial 24.7 20.0 - 26.0 mmol/L [facility] Base Excess, Arterial 1.2 -3.0 - 3.0 mmol/L [facility] Hgb Blood Gas 14.1 13.7 - 16.5 gm/dL [facility] Oxyhemoglobin, Arterial 90.4(L) 94.0 - 97.0 % [facility] Carboxyhemoglob in, Arterial 0.1 % [facility] Comment: Nonsmokers: 0.5-1.5% COHB Smokers: Variable, but usually less than 10% Toxic: 20-30% COHB Lethal: Greater than 60% COHB Methemoglobin, Arterial 0.7 <=1.5 % [facility] Na Whole Blood 141 135 - 145 mmol/L [facility] K Whole Blood 4.2 3.5 - 5.0 mmol/L [facility] Comment: Please note: Patients with WBC >100,000 may have falsely elevated Potassium levels. Contact the Clinical Chemistry Laboratory if there are any questions. ICa Whole Blood 1.18 1.15 - 1.33 mmol/L [facility] Comment: Note: ??Total bilirubin higher than 20 mg/dL may lead to falsely low ionized calcium. CL Whole Blood 106 98 - 107 mmol/L [facility] Gluc Whole Bld 194 65 - 199 mg/dL [facility] Comment:Diabetes: >=200 mg/d L plus symptoms. Lactate WB 2.6(H) 0.5 - 2.2 mmol/L [facility] FIO2 Art 40 % [facility] PF Ratio Art 138 [facility] Blood specimen (specimen) 07/17/2017 11:54 AM EDT 07/17/2017 11:54 AM EDT Sriram Contreras MD POINT OF CARE TEST ORDERABLES [facility] [place] [place] [address] * Cardiac Enzymes (07/17/2017 5:42 AM EDT) Troponin-T <0.01 0.00 - 0.00 ng/mL [facility] Comment: The 99th percentile [...] ischemia ?? New or presumed new significant [id number] wave (ST-T) changes or new left bundle [...] additional sample may be indicated. Reference: Third [place] Definition of Myocardial Infarction. Journal of the [place] [employer] 2012;60:1581-98 Creatine Kinase 47 0 - 200 unit/L [facility] Blood specimen (specimen) 07/17/2017 5:42 AM EDT 07/17/2017 5:42 AM EDT Narrative Resulting Agency Comment Spec In Lab Sriram Contreras MD CHEMISTRY ORDERABL ES Performing Organization Address [facility]/[place] [address] * (ABNORMAL) Differential, Automated (07/17/2017 12:30 AM EDT) Neutrophil % 90.5 % [facility] Neutrophil Absolute 8.62(H) 1.70 - 6.10 x10(3)/mc L [facility] Lymph % 3.7 % [facility] Lymphocytes Abs 0.4(L) 0.9 - 3.2 x10(3)/ L [facility] Monocyte % 4.9 % [facility] Monocyte Abs 0.5 0.3 - 0.9 x10(3)/ L [facility] Eos % 0.0 % [facility] Eosinophils Abs 0.0 0.0 - 0.4 x10(3)/[facility] Basophil % 0.1 % [facility] Baso Absolute 0.0 0.0 - 0.1 x10(3)/ L [facility] Immature Gran % 0.80 % [facility] Comment: Immature granulocytes(IG's)percentage and absolute count will include metamyelocytes, myelocytes, and promyelocytes. Blood smears from CBCs yielding IG's will be scanned manually for concordance. If this scan disagrees with the automated IG or if promyelocytes are noted, a manual differential will be performed. Immature Gran Absolute 0.08(H) 0.00 - 0.04 x10(3)/mc L [facility] Blood specimen (specimen) 07/17/2017 12:30 AM EDT 07/17/2017 1:13 AM EDT Narrative Resulting Agency Comment Spec In Lab Sriram Contreras MD HEMATOLOGY ORDERAB LES Performing Organization Address City/[facility]/ZIP [place] [address] * (ABNORMAL) Hemogram (07/17/2017 12:30 AM EDT) Pathologist [facility] White Blood Cell 9.5 4.0 - 9.5 x10(3)/[facility] Red Blood Cell 3.98(L) 4.58 - 5.54 x10(6)/[facility] Hemoglobin 12.4(L) 13.7 - 16.5 gm/dL [facility] Hematocrit 36.7(L) 40.5 - 48.5 % [facility] Mean Cell Volume 92.2 82.9 - 93.1 fL [facility] Mean Cell Hemoglobin 31.2 27.5 - 32.1 pg [facility] Mean Cell Hemoglobin Concentration 33.8 32.0 - 35.7 gm/dL [facility] Platelet 133(L) 145 - 357 x10(3)/[facility] RDW Standard Deviation 47.7(H) 36.0 - 45.0 [facility] RDW coefficient of variation 13.8 11.4 - 13.8 % [facility] Mean Platelet Volume 10.9 7.6 - 12.9 [facility] NRBC% auto 0.0 % [facility] [facility] LAB[facility]ORY NRBC Absolute 0.000 0.000 - 0.000 x10(3)/[facility] LABORATORY Blood specimen (specimen) 07/17/2017 12:30 AM EDT 07/17/2017 1:13 AM EDT Narrative Resulting Agency Comment Spec In Lab Sriram Contreras MD HEMATOLOGY ORDERAB LES [facility] [place] [address] * (ABNORMAL) Basic Metabolic Panel (non-fasting) (07/17/2017 12:30 AM EDT) [facility] Glucose 246(H) 65 - 199 mg/dL [facility] Comment:Diabetes: >=200 mg/d L plus symptoms Blood Urea Nitrogen 17 10 - 20 mg/dL [facility] Creatinine 0.73(L) 0.80 - 1.50 mg/dL [facility] Comment: Please note that the pediatric reference intervals supplied above were not validated at [facility]. Results from pediatric patients should be interpreted in conjunction to the patient's age, height and muscle mass. Sodium 137 135 - 145 mmol/L [facility] Potassium 4.7 3.5 - 5.0 mmol/L [facility] Comment: Please note: ??Patients with WBC >100,000 may have falsely elevated Potassium levels. ??For accurate Potassium quantification in these patients send serum separator tube (gold top) for subsequent determinations. ??Contact the Clinical Chemistry Laboratory if there are any questions. Chloride 103 98 - 107 mmol/L [facility] Carbon Dioxide 21(L) 22 - 31 mmol/L [facility] Anion Gap 13 5 - 15 mmol/L [facility] Calcium 8.3(L) 8.5 - 10.5 mg/dL [facility] Est Glomerular Filtration Rate [...] the following links into your internet browser. [email or web address] Blood specimen (specimen) 07/17/2017 12:30 AM EDT 07/17/2017 1:13 AM EDT Narrative Resulting Agency Comment Spec In Lab Sriram Contreras MD CHEMISTRY ORDERABL ES [facility] [place] [place] [address] * Cardiac Enzymes (07/17/2017 12:30 AM EDT) Troponin-T <0.01 0.00 - 0.00 ng/mL [facility] Comment: The 99th percentile [...] ischemia ?? New or presumed new significant UK-wqpapsb-H wave (ST-T) changes or new left bundle [...] additional sample may be indicated. Reference: Third [place] Definition of Myocardial Infarction. Journal of the [place] [employer] 2012;60:1581-98 Creatine Kinase 60 0 - 200 unit/L [facility] Blood specimen (specimen) 07/17/2017 12:30 AM EDT 07/17/2017 1:13 AM EDT Narrative Resulting Agency Comment Spec In Lab Sriram Contreras MD CHEMISTRY ORDERABL ES [facility] [place] [place] [address] * XR Chest PA or AP 1 [...] EDT) Troponin-T <0.01 0.00 - 0.00 ng/mL [facility] Comment: The 99th percentile [...] ischemia ?? New or presumed new significant XC-csemszz-W wave (ST-T) changes or new left bundle [...] additional sample may be indicated. Reference: Third [place] Definition of Myocardial Infarction. Journal of the [place] [employer] 2012;60:1581-98 Creatine Kinase 63 0 - 200 unit/L [facility] Blood specimen (specimen) 07/16/2017 5:10 PM EDT 07/16/2017 5:20 PM EDT Narrative Resulting Agency Comment Spec In Lab Sriram Contreras MD CHEMISTRY ORDERABL ES Performing Organization Address [facility] [[email or web address]] de Phone Number [facility] [place] [place] [address] * EKG 12 Lead (07/16/2017 4:46 PM EDT) Ventricular rate 70 BPM MUSE SYSTEM Atrial Rate 70 BPM MUSE SYSTEM P-R Interval 208 ms MUSE SYSTEM QRS Duration 96 ms MUSE SYSTEM Q-T Interval 404 ms MUSE SYSTEM QTC Calculated (Bezet) 436 ms MUSE SYSTEM Calculated P Sargeant 57 degrees MUSE SYSTEM Calculated R Sargeant 54 degrees MUSE SYSTEM Calculated T Sargeant 50 degrees MUSE SYSTEM INTERPRETATION Sinus rhythm with frequent Premature ventricular complexes in a pattern of bigeminy Otherwise normal ECG Confirmed by MD Bello Douglas ([id number]) on 07/17/2017 2:06:02 PM MUSE SYSTEM 07/16/2017 4:46 PM EDT 07/17/2017 2:06 PM EDT Sriram Contreras MD ECG ORDERABLES Performing Organization Address [facility] Co de Phone Number MUSE SYSTEM * Magnesium (07/16/2017 4:00 AM EDT) Magnesium 0.82 0.69 - 1.07 mmol/L [facility] Blood specimen (specimen) Venous Draw / Unknown 07/16/2017 4:00 AM EDT 07/16/2017 4:18 AM EDT Narrative Resulting Agency Comment Spec In Lab Sriram Contreras MD CHEMISTRY ORDERABL ES Performing Organization Address [facility]/[place] [address] * (ABNORMAL) Differential, Automated (07/16/2017 4:00 AM EDT) Neutrophil % 81.3 % [facility] Neutrophil Absolute 8.31(H) 1.70 - 6.10 x10(3)/mc L [facility] Lymph % 10.7 % [facility] Lymphocytes Abs 1.1 0.9 - 3.2 x10(3)/mc L [facility] Monocyte % 6.8 % [facility] Monocyte Abs 0.7 0.3 - 0.9 x10(3)/mc L [facility] Eos % 0.3 % [facility] Eosinophils Abs 0.0 0.0 - 0.4 x10(3)/mc L [facility] Basophil % 0.4 % [facility] Baso Absolute 0.0 0.0 - 0.1 x10(3)/ L [facility] Immature Gran % 0.50 % [facility] Comment: Immature granulocytes(IG's)percentage and absolute count will include metamyelocytes, myelocytes, and promyelocytes. Blood smears from CBCs yielding IG's will be scanned manually for concordance. If this scan disagrees with the automated IG or if promyelocytes are noted, a manual differential will be performed. Immature Gran Absolute 0.05(H) 0.00 - 0.04 x10(3)/mc L [facility] Blood specimen (specimen) 07/16/2017 4:00 AM EDT 07/16/2017 4:16 AM EDT Narrative Resulting Agency Comment Spec In Lab Sriram Contreras MD HEMATOLOGY ORDERAB LES Performing Organization Address City/[facility]/ZIP Co de Phone Number [facility] [place] [address] * (ABNORMAL) Hemogram (07/16/2017 4:00 AM EDT) White Blood Cell 10.2(H) 4.0 - 9.5 x10(3)/mc L [facility] Red Blood Cell 3.95(L) 4.58 - 5.54 x10(6)/ L [facility] Hemoglobin 12.4(L) 13.7 - 16.5 gm/dL [facility] Hematocrit 37.2(L) 40.5 - 48.5 % [facility] Mean Cell Volume 94.2(H) 82.9 - 93.1 fL [facility] Mean Cell Hemoglobin 31.4 27.5 - 32.1 pg [facility] Mean Cell Hemoglobin Concentration 33.3 32.0 - 35.7 gm/dL [facility] Platelet 126(L) 145 - 357 x10(3)/ L [facility] RDW Standard Deviation 50.0(H) 36.0 - 45.0 [facility] LABORATORY RDW coefficient of variation 14.3(H) 11.4 - 13.8 % [facility] Mean Platelet Volume 10.3 7.6 - 12.9 [facility] LABORATORY NRBC% auto 0.0 % [facility] NRBC Absolute 0.000 0.000 - 0.000 x10(3)/[facility] LABORATORY Blood specimen (specimen) 07/16/2017 4:00 AM EDT 07/16/2017 4:16 AM EDT Narrative Resulting Agency Comment Spec In Lab Sriram Contreras MD HEMATOLOGY ORDERAB LES [facility] [place] [place] [address] * (ABNORMAL) Basic Metabolic Panel (non-fasting) (07/16/2017 4:00 AM EDT) Glucose 131 65 - 199 mg/dL [facility] Comment:Diabetes: >=200 mg/d L plus symptoms Blood Urea Nitrogen 16 10 - 20 mg/dL [facility] Creatinine 0.82 0.80 - 1.50 mg/dL [facility] Comment: Please note that the pediatric reference intervals supplied above were not validated at [facility]. Results from pediatric patients should be interpreted in conjunction to the patient's age, height and muscle mass. Sodium 144 135 - 145 mmol/L [facility] Potassium 4.2 3.5 - 5.0 mmol/L [facility] Comment: Please note: ??Patients with WBC >100,000 may have falsely elevated Potassium levels. ??For accurate Potassium quantification in these patients send serum separator tube (gold top) for subsequent determinations. ??Contact the Clinical Chemistry Laboratory if there are any questions. Chloride 106 98 - 107 mmol/L [facility] Carbon Dioxide 21(L) 22 - 31 mmol/L [facility] Anion Gap 17(H) 5 - 15 mmol/L [facility] Calcium 8.1(L) 8.5 - 10.5 mg/dL [facility] Est Glomerular Filtration Rate [...] the following links into your internet browser. [email or web address] Blood specimen (specimen) 07/16/2017 4:00 AM EDT 07/16/2017 4:16 AM EDT Narrative Resulting Agency Comment Spec In Lab Sriram Contreras MD CHEMISTRY ORDERABL ES [facility] [place] [address] * POCT Glucose (07/15/2017 12:26 PM EDT) Glucose, POC 75 65 - 199 mg/dL [facility] Comment: Supplemental ranges: <140 mg/dL before meals <180 mg/dL all other times of the day Blood specimen (specimen) 07/15/2017 12:26 PM EDT 07/15/2017 12:26 PM EDT Sriram Contreras MD POINT OF CARE TEST ORDERABLES Performing Organization Address [facility] Co de Phone Number [facility] [place] [place] [address] * (ABNORMAL) Basic Metabolic Panel (non-fasting) (07/15/2017 10:20 AM EDT) [facility] Glucose 111 65 - 199 mg/dL [facility] Comment:Diabetes: >=200 mg/d L plus symptoms Blood Urea Nitrogen 19 10 - 20 mg/dL [facility] Creatinine 0.96 0.80 - 1.50 mg/dL [facility] Comment: Please note that the pediatric reference intervals supplied above were not validated at [facility]. Results from pediatric patients should be interpreted in conjunction to the patient's age, height and muscle mass. Sodium 143 135 - 145 mmol/L [facility] Potassium 4.0 3.5 - 5.0 mmol/L [facility] Comment: Please note: ??Patients with WBC >100,000 may have falsely elevated Potassium levels. ??For accurate Potassium quantification in these patients send serum separator tube (gold top) for subsequent determinations. ??Contact the Clinical Chemistry Laboratory if there are any questions. Chloride 107 98 - 107 mmol/L [facility] Carbon Dioxide 22 22 - 31 mmol/L [facility] Anion Gap 14 5 - 15 mmol/L [facility] Calcium 8.2(L) 8.5 - 10.5 mg/dL [facility] Est Glomerular Filtration Rate [...] the following links into your internet browser. [email or web address] Blood specimen (specimen) 07/15/2017 10:20 AM EDT 07/15/2017 10:24 AM EDT Narrative Resulting Agency Comment Spec In Lab Sriram Contreras MD CHEMISTRY ORDERABL ES Performing Organization Address [facility] Co de Phone Number [facility] [place] [place] [address] * POCT Glucose (07/15/2017 8:30 AM EDT) Glucose, POC 111 65 - 199 mg/dL [facility] Comment: Supplemental ranges: <140 mg/dL before meals <180 mg/dL all other times of the day Blood specimen (specimen) 07/15/2017 8:30 AM EDT 07/15/2017 8:30 AM EDT Sriram Contreras MD POINT OF CARE TEST ORDERABLES Performing Organization Address [facility]/ZIP Co de Phone Number [facility] [place] [place] [address] * (ABNORMAL) BLOOD GAS 2 ARTERIAL (07/15/2017 4:17 AM EDT) pH, Arterial 7.38 7.35 - 7.45 [facility] PCO2, Arterial 42 35 - 45 mmHg [facility] PO2, Arterial 61(L) 85 - 104 mmHg [facility] Bicarbonate, Arterial 24.6 20.0 - 26.0 mmol/L [facility] Base Excess, Arterial -0.4 -3.0 - 3.0 mmol/L [facility] Hgb Blood Gas 14.0 13.7 - 16.5 gm/dL [facility] Oxyhemoglobin, Arterial 90.6(L) 94.0 - 97.0 % [facility] Carboxyhemoglob in, Arterial 0.2 % [facility] Comment: Nonsmokers: 0.5-1.5% COHB Smokers: Variable, but usually less than 10% Toxic: 20-30% COHB Lethal: Greater than 60% COHB Methemoglobin, Arterial 0.5 <=1.5 % [facility] Na Whole Blood 139 135 - 145 mmol/L [facility] K Whole Blood 4.1 3.5 - 5.0 mmol/L [facility] Comment: Please note: Patients with WBC >100,000 may have falsely elevated Potassium levels. Contact the Clinical Chemistry Laboratory if there are any questions. ICa Whole Blood 1.19 1.15 - 1.33 mmol/L [facility] Comment: Note: ??Total bilirubin higher than 20 mg/dL may lead to falsely low ionized calcium. CL Whole Blood 106 98 - 107 mmol/L [facility] Gluc Whole Bld 130 65 - 199 mg/dL [facility] Comment:Diabetes: >=200 mg/d L plus symptoms. Lactate WB 1.9 0.5 - 2.2 mmol/L [facility] FIO2 Art 35 % [facility] PF Ratio Art 174 [facility] Blood specimen (specimen) 07/15/2017 4:17 AM EDT 07/15/2017 4:17 AM EDT Sriram Contreras MD POINT OF CARE TEST ORDERABLES [facility] [place] [place] [address] * (ABNORMAL) Differential, Automated (07/15/2017 4:15 AM EDT) Neutrophil % 84.7 % [facility] Neutrophil Absolute 12.39(H) 1.70 - 6.10 x10(3)/[facility] LABORATORY Lymph % 6.2 % [facility] Lymphocytes Abs 0.9 0.9 - 3.2 x10(3)/[facility] LABORATORY Monocyte % 8.0 % [facility] Monocyte Abs 1.2(H) 0.3 - 0.9 x10(3)/[facility] LABORATORY Eos % 0.0 % [facility] Eosinophils Abs 0.0 0.0 - 0.4 x10(3)/[facility] LABORATORY Basophil % 0.1 % [facility] Baso Absolute 0.0 0.0 - 0.1 x10(3)/[facility] LABORATORY Immature Gran % 1.00 % [facility] Comment: Immature granulocytes(IG's)percentage and absolute count will include metamyelocytes, myelocytes, and promyelocytes. Blood smears from CBCs yielding IG's will be scanned manually for concordance. If this scan disagrees with the automated IG or if promyelocytes are noted, a manual differential will be performed. Immature Gran Absolute 0.14(H) 0.00 - 0.04 x10(3)/[facility] LABORATORY Blood specimen (specimen) 07/15/2017 4:15 AM EDT 07/15/2017 4:28 AM EDT Narrative Resulting Agency Comment Spec In Lab Sriram Contreras MD HEMATOLOGY ORDERAB LES [facility] [place] [place] [address] * (ABNORMAL) Hemogram (07/15/2017 4:15 AM EDT) White Blood Cell 14.6(H) 4.0 - 9.5 x10(3)/[facility] LABORATORY Red Blood Cell 4.16(L) 4.58 - 5.54 x10(6)/[facility] LABORATORY Hemoglobin 13.0(L) 13.7 - 16.5 gm/dL [facility] Hematocrit 38.9(L) 40.5 - 48.5 % [facility] Mean Cell Volume 93.5(H) 82.9 - 93.1 fL [facility] Mean Cell Hemoglobin 31.3 27.5 - 32.1 pg [facility] Mean Cell Hemoglobin Concentration 33.4 32.0 - 35.7 gm/dL [facility] Platelet 135(L) 145 - 357 x10(3)/[facility] LABORATORY RDW Standard Deviation 48.8(H) 36.0 - 45.0 [facility] LABORATORY RDW coefficient of variation 14.2(H) 11.4 - 13.8 % [facility] Mean Platelet Volume 10.0 7.6 - 12.9 [facility] LABORATORY NRBC% auto 0.0 % [facility] NRBC Absolute 0.000 0.000 - 0.000 x10(3)/[facility] LABORATORY Blood specimen (specimen) 07/15/2017 4:15 AM EDT 07/15/2017 4:28 AM EDT Narrative Resulting Agency Comment Spec In Lab Sriram Contreras MD HEMATOLOGY ORDERAB LES [facility] [place] [place] [address] * Potassium (07/14/2017 8:20 PM EDT) Potassium 4.4 3.5 - 5.0 mmol/L [facility] Comment: Please note: ??Patients [...] MD CHEMISTRY ORDERABL ES Performing Organization Address [facility] Phone Number [facility] [place] [address] * (ABNORMAL) Magnesium (07/14/2017 8:20 PM EDT) Magnesium 1.08(H) 0.69 - 1.07 mmol/L [facility] Blood specimen (specimen) 07/14/2017 8:20 PM EDT 07/14/2017 8:31 PM EDT Narrative Resulting Agency Comment Spec In Lab Sriram Contreras MD CHEMISTRY ORDERABL ES Performing Organization Address [facility] de Phone Number [facility] [place] [place] [address] * Magnesium (07/14/2017 4:30 PM EDT) Magnesium 0.86 0.69 - 1.07 mmol/L [facility] Blood specimen (specimen) 07/14/2017 4:30 PM EDT 07/14/2017 4:50 PM EDT Narrative Resulting Agency Comment Spec In Lab Sriram Contreras MD CHEMISTRY ORDERABL ES Performing Organization Address [facility] de Phone Number [facility] [place] [place] [address] * POCT Glucose (07/14/2017 4:26 PM EDT) Glucose, POC 146 65 - 199 mg/dL [facility] Comment: Supplemental ranges: <140 mg/dL before meals <180 mg/dL all other times of the day Blood specimen (specimen) 07/14/2017 4:26 PM EDT 07/14/2017 4:26 PM EDT Sriram Contreras MD POINT OF CARE TEST ORDERABLES Performing Organization Address [facility] Co de Phone Number [facility] [place] [address] * EKG 12 Lead (07/14/2017 12:37 PM EDT) Ventricular rate 67 BPM MUSE SYSTEM Atrial Rate 67 BPM MUSE SYSTEM P-R Interval 216 ms MUSE SYSTEM QRS Duration 100 ms MUSE SYSTEM Q-T Interval 438 ms MUSE SYSTEM QTC Calculated (Bezet) 462 ms MUSE SYSTEM Calculated P Sargeant 58 degrees MUSE SYSTEM Calculated R Sargeant 56 degrees MUSE SYSTEM Calculated T Sargeant 38 degrees MUSE SYSTEM INTERPRETATION Sinus rhythm with 1st degree A-V block Otherwise normal ECG When compared with ECG of 29-MAR-1997 12:50, NM interval has increased Confirmed by MD Radha, Daryl ([id number]) on 07/14/2017 5:07:22 PM MUSE SYSTEM 07/14/2017 12:3 7 PM EDT 07/14/2017 5:07 PM EDT Sriram Contreras MD ECG ORDERABLES Performing Organization Address [facility] [[email or web address]] de Phone Number MUSE SYSTEM * POCT Glucose (07/14/2017 12:05 PM EDT) Glucose, POC 147 65 - 199 mg/dL [facility] Comment: Supplemental ranges: <140 mg/dL before meals <180 mg/dL all other times of the day Blood specimen (specimen) 07/14/2017 12:05 PM EDT 07/14/2017 12:05 PM EDT Sriram Contreras MD POINT OF CARE TEST ORDERABLES Performing Organization Address [facility] Co de Phone Number [facility] [place] [address] * POCT Glucose (07/14/2017 8:25 AM EDT) Glucose, POC 140 65 - 199 mg/dL [facility] Comment: Supplemental ranges: <140 mg/dL before meals <180 mg/dL all other times of the day Blood specimen (specimen) 07/14/2017 8:25 AM EDT 07/14/2017 8:25 AM EDT Sriram Contreras MD POINT OF CARE TEST ORDERABLES [facility] [place] [place] [address] * (ABNORMAL) Differential, Automated (07/14/2017 12:36 AM EDT) Neutrophil % 90.3 % [facility] Neutrophil Absolute 13.17(H) 1.70 - 6.10 x10(3)/mc L [facility] Lymph % 3.8 % [facility] Lymphocytes Abs 0.6(L) 0.9 - 3.2 x10(3)/mc L [facility] Monocyte % 5.4 % [facility] Monocyte Abs 0.8 0.3 - 0.9 x10(3)/mc L [facility] Eos % 0.0 % [facility] Eosinophils Abs 0.0 0.0 - 0.4 x10(3)/mc L [facility] Basophil % 0.1 % [facility] Baso Absolute 0.0 0.0 - 0.1 x10(3)/mc L [facility] Immature Gran % 0.40 % [facility] Comment: Immature granulocytes(IG's)percentage and absolute count will include metamyelocytes, myelocytes, and promyelocytes. Blood smears from CBCs yielding IG's will be scanned manually for concordance. If this scan disagrees with the automated IG or if promyelocytes are noted, a manual differential will be performed. Immature Gran Absolute 0.06(H) 0.00 - 0.04 x10(3)/mc L [facility] Blood specimen (specimen) 07/14/2017 12:36 AM EDT 07/14/2017 12:41 AM EDT Narrative Resulting Agency Comment Spec In Lab Sriram Contreras MD HEMATOLOGY ORDERAB LES [facility] [place] [place] [address] * (ABNORMAL) Hemogram (07/14/2017 12:36 AM EDT) White Blood Cell 14.6(H) 4.0 - 9.5 x10(3)/mc L [facility] Red Blood Cell 4.57(L) 4.58 - 5.54 x10(6)/mc L [facility] Hemoglobin 14.1 13.7 - 16.5 gm/dL [facility] Hematocrit 42.1 40.5 - 48.5 % [facility] Mean Cell Volume 92.1 82.9 - 93.1 [facility] LABORATORY Mean Cell Hemoglobin 30.9 27.5 - 32.1 [facility] LABORATORY Mean Cell Hemoglobin Concentration 33.5 32.0 - 35.7 gm/dL [facility] Platelet 157 145 - 357 x10(3)/mc L [facility] RDW Standard Deviation 48.6(H) 36.0 - 45.0 [facility] LABORATORY RDW coefficient of variation 14.4(H) 11.4 - 13.8 % [facility] Mean Platelet Volume 10.2 7.6 - 12.9 [facility] LABORATORY NRBC% auto 0.0 % [facility] NRBC Absolute 0.000 0.000 - 0.000 x10(3)/mc L [facility] Blood specimen (specimen) 07/14/2017 12:36 AM EDT 07/14/2017 12:41 AM EDT Narrative Resulting Agency Comment Spec In Lab Sriram Contreras MD HEMATOLOGY ORDERAB LES [facility] [place] [place] [address] * (ABNORMAL) Magnesium (07/14/2017 12:36 AM EDT) Magnesium 0.65(L) 0.69 - 1.07 mmol/L [facility] Blood specimen (specimen) 07/14/2017 12:36 AM EDT 07/14/2017 12:41 AM EDT Narrative Resulting Agency Comment Spec In Lab Sriram Contreras MD CHEMISTRY ORDERABL ES Performing Organization Address [facility] [[email or web address]] de Phone Number [facility] [place] [place] [address] * Phosphorus (07/14/2017 12:36 AM EDT) Phosphorus 3.3 2.5 - 4.5 mg/dL [facility] Blood specimen (specimen) 07/14/2017 12:36 AM EDT 07/14/2017 12:41 AM EDT Narrative Resulting Agency Comment Spec In Lab Sriram Contreras MD CHEMISTRY ORDERABL ES Performing Organization Address [facility] de Phone Number [facility] [place] [address] * Prealbumin (07/14/2017 12:36 AM EDT) Prealbumin 23 20 - 40 mg/dL [facility] Comment: Prealbumin levels are generally lower in the pediatric population; adult concentrations are usually attained near puberty. Blood specimen (specimen) 07/14/2017 12:36 AM EDT 07/14/2017 12:45 AM EDT Narrative Resulting Agency Comment Spec In Lab Sriram Contreras MD CHEMISTRY ORDERABL ES Performing Organization Address [facility] Co de Phone Number [facility] [place] [address] * (ABNORMAL) Basic Metabolic Panel (non-fasting) (07/14/2017 12:36 AM EDT) Glucose 161 65 - 199 mg/dL [facility] Comment:Diabetes: >=200 mg/d L plus symptoms Blood Urea Nitrogen 16 10 - 20 mg/dL [facility] Creatinine 0.97 0.80 - 1.50 mg/dL [facility] Comment: Please note that the pediatric reference intervals supplied above were not validated at [facility]. Results from pediatric patients should be interpreted in conjunction to the patient's age, height and muscle mass. Sodium 144 135 - 145 mmol/L [facility] Potassium 4.5 3.5 - 5.0 mmol/L [facility] Comment: result rechecked- Please note: ??Patients with WBC >100,000 may have falsely elevated Potassium levels. ??For accurate Potassium quantification in these patients send serum separator tube (gold top) for subsequent determinations. ??Contact the Clinical Chemistry Laboratory if there are any questions. Chloride 108(H) 98 - 107 mmol/L [facility] Carbon Dioxide 19(L) 22 - 31 mmol/L [facility] Anion Gap 17(H) 5 - 15 mmol/L [facility] Calcium 7.7(L) 8.5 - 10.5 mg/dL [facility] Est Glomerular Filtration Rate [...] the following links into your internet browser. [email or web address] Blood specimen (specimen) 07/14/2017 12:36 AM EDT 07/14/2017 12:41 AM EDT Narrative Resulting Agency Comment Spec In Lab Sriram Contreras MD CHEMISTRY ORDERABL ES [facility] [place] [place] [address] * (ABNORMAL) Basic Metabolic Panel (non-fasting) (07/13/2017 9:33 PM EDT) Glucose 147 65 - 199 mg/dL [facility] Comment:Diabetes: >=200 mg/d L plus symptoms Blood Urea Nitrogen 17 10 - 20 mg/dL [facility] Creatinine 1.16 0.80 - 1.50 mg/dL [facility] Comment: Please note that the pediatric reference intervals supplied above were not validated at [facility]. Results from pediatric patients should be interpreted in conjunction to the patient's age, height and muscle mass. Sodium Not Perf 135 - 145 mmol/L [facility] Comment: Unable to quantitate due to sample hemolysis. ??Sample redraw suggested. Called by: michael, Read back by: maddie rucker, Date/Time:07/13/17 22:12. Potassium Not Perf 3.5 - 5.0 mmol/L [facility] Comment: Unable to quantitate [...] Chloride Not Perf 98 - 107 mmol/L [facility] Comment: Unable to quantitate due to sample hemolysis. ??Sample redraw suggested. Called by: michael, Read back by: maddie rucker, Date/Time:07/13/17 22:12. Carbon Dioxide 18(L) 22 - 31 mmol/L [facility] Anion Gap Not Calculated 5 - 15 mmol/L [facility] Calcium 7.3(L) 8.5 - 10.5 mg/dL [facility] Est Glomerular Filtration Rate [...] the following links into your internet browser. [email or web address] Blood specimen (specimen) 07/13/2017 9:33 PM EDT 07/13/2017 9:41 PM EDT Narrative Resulting Agency Comment Spec In Lab Sriram Contreras MD CHEMISTRY ORDERABL ES [facility] [place] [address] * XR Chest PA or AP 1 [...] PM EDT 07/13/2017 7:35 PM EDT Narrative [facility] - 07/13/2017 7:35 PM EDT Specimen requisition ordered. ??Separate Pathology report to follow Sriram Contreras MD PATHOLOGY/CYTOLOGY ORDERABLES Performing Organization Address [facility] [place] [address] * Specimen to Pathology (surgical or derm) (07/13/2017 7:05 PM EDT) AP Specimen 07/13/2017 7:05 PM EDT 07/13/2017 7:05 PM EDT Narrative [facility] - 07/13/2017 7:05 PM EDT Specimen requisition ordered. ??Separate Pathology report to follow Sriram Contreras MD PATHOLOGY/CYTOLOGY ORDERABLES Performing Organization Address [facility] [place] [address] * Specimen to Pathology (surgical or derm) (07/13/2017 6:21 PM EDT) AP Specimen 07/13/2017 6:21 PM EDT 07/13/2017 6:21 PM EDT Narrative [facility] - 07/13/2017 6:21 PM EDT Specimen requisition ordered. ??Separate Pathology report to follow Sriram Contreras MD PATHOLOGY/CYTOLOGY ORDERABLES Performing Organization Address City/[facility] Co de Phone Number [facility] [place] [address] * Specimen to Pathology (surgical or derm) (07/13/2017 5:30 PM EDT) AP Specimen 07/13/2017 5:30 PM EDT 07/13/2017 5:30 PM EDT Narrative [facility] - 07/13/2017 5:30 PM EDT Specimen requisition ordered. ??Separate Pathology report to follow Sriram Contreras MD PATHOLOGY/[place] [address] * Specimen to Pathology (surgical or derm) (07/13/2017 5:30 PM EDT) AP Specimen 07/13/2017 5:30 PM EDT 07/13/2017 5:30 PM EDT Narrative [facility] - 07/13/2017 5:30 PM EDT Specimen requisition ordered. ??Separate Pathology report to follow Sriram Contreras MD PATHOLOGY/[place] [address] * Specimen to Pathology (surgical or derm) (07/13/2017 5:30 PM EDT) AP Specimen 07/13/2017 5:30 PM EDT 07/13/2017 5:30 PM EDT Narrative [facility] - 07/13/2017 5:30 PM EDT Specimen requisition ordered. ??Separate Pathology report to follow Sriram Contreras MD PATHOLOGY/[place] [address] * Specimen to Pathology (surgical or derm) (07/13/2017 5:30 PM EDT) AP Specimen 07/13/2017 5:30 PM EDT 07/13/2017 5:30 PM EDT Narrative [facility] - 07/13/2017 5:30 PM EDT Specimen requisition ordered. ??Separate Pathology report to follow Sriram Contreras MD PATHOLOGY/[place] [address] * Specimen to Pathology (surgical or derm) (07/13/2017 5:21 PM EDT) AP Specimen 07/13/2017 5:21 PM EDT 07/13/2017 5:21 PM EDT Narrative [facility] - 07/13/2017 5:21 PM EDT Specimen requisition ordered. ??Separate Pathology report to follow Sriram Contreras MD PATHOLOGY/CYTOLOGY ORDERABLES Performing Organization Address [facility] [place] [address] * Specimen to Pathology (surgical or derm) (07/13/2017 5:21 PM EDT) AP Specimen 07/13/2017 5:21 PM EDT 07/13/2017 5:21 PM EDT Narrative [facility] - 07/13/2017 5:21 PM EDT Specimen requisition ordered. ??Separate Pathology report to follow Sriram Contreras MD PATHOLOGY/CYTOLOGY ORDERABLES Performing Organization Address City/[facility]/[place] [address] * Specimen to Pathology (surgical or derm) (07/13/2017 5:21 PM EDT) AP Specimen 07/13/2017 5:21 PM EDT 07/13/2017 5:21 PM EDT [facility] - 07/13/2017 5:21 PM EDT Specimen requisition ordered. ??Separate Pathology report to follow Sriram Contreras MD PATHOLOGY/CYTOLOGY ORDERABLES Performing Organization Address City/[facility]/[place] [address] * Specimen to Pathology (surgical or derm) (07/13/2017 5:16 PM EDT) AP Specimen 07/13/2017 5:16 PM EDT 07/13/2017 5:16 PM EDT Narrative [facility] - 07/13/2017 5:16 PM EDT Specimen requisition ordered. ??Separate Pathology report to follow Sriram Contreras MD PATHOLOGY/[place] [address] * Specimen to Pathology (surgical or derm) (07/13/2017 5:05 PM EDT) AP Specimen 07/13/2017 5:05 PM EDT 07/13/2017 5:05 PM EDT Narrative [facility] - 07/13/2017 5:05 PM EDT Specimen requisition ordered. ??Separate Pathology report to follow Sriram Contreras MD PATHOLOGY/[place] [address] * Specimen to Pathology (surgical or derm) (07/13/2017 5:05 PM EDT) AP Specimen 07/13/2017 5:05 PM EDT 07/13/2017 5:05 PM EDT Narrative [facility] - 07/13/2017 5:05 PM EDT Specimen requisition ordered. ??Separate Pathology report to follow Sriram Contreras MD PATHOLOGY/CYTOLOGY ORDERABLES Performing Organization Address City/[facility]/[place] [address] * Specimen to Pathology (surgical or derm) (07/13/2017 4:39 PM EDT) AP Specimen 07/13/2017 4:39 PM EDT 07/13/2017 4:39 PM EDT Narrative [facility] - 07/13/2017 4:39 PM EDT Specimen requisition ordered. ??Separate Pathology report to follow Sriram Contreras MD PATHOLOGY/CYTOLOGY ORDERABLES Performing Organization Address City/[facility]/[place] [address] * Specimen to Pathology (surgical or derm) (07/13/2017 4:35 PM EDT) AP Specimen 07/13/2017 4:35 PM EDT 07/13/2017 4:35 PM EDT [facility] - 07/13/2017 4:35 PM EDT Specimen requisition ordered. ??Separate Pathology report to follow Sriram Contreras MD PATHOLOGY/CYTOLOGY ORDERABLES Performing Organization Address [facility] [place] [address] * Specimen to Pathology (surgical or derm) (07/13/2017 4:35 PM EDT) AP Specimen 07/13/2017 4:35 PM EDT 07/13/2017 4:35 PM EDT Narrative [facility] - 07/13/2017 4:35 PM EDT Specimen requisition ordered. ??Separate Pathology report to follow Sriram Contreras MD PATHOLOGY/CYTOLOGY ORDERABLES Performing Organization Address City/[facility]/[place] [address] * Specimen to Pathology (surgical or derm) (07/13/2017 3:52 PM EDT) AP Specimen 07/13/2017 3:52 PM EDT 07/13/2017 3:52 PM EDT [facility] - 07/13/2017 3:52 PM EDT Specimen requisition ordered. ??Separate Pathology report to follow Sriram Contreras MD PATHOLOGY/CYTOLOGY ORDERABLES Performing Organization Address City/[facility]/[place] [address] * Specimen to Pathology (surgical or derm) (07/13/2017 3:52 PM EDT) AP Specimen 07/13/2017 3:52 PM EDT 07/13/2017 3:52 PM EDT Narrative [facility] - 07/13/2017 3:52 PM EDT Specimen requisition ordered. ??Separate Pathology report to follow Sriram Contreras MD PATHOLOGY/[place] [address] * (ABNORMAL) BLOOD GAS 2 ARTERIAL (07/13/2017 3:46 PM EDT) pH, Arterial 7.31(L) 7.35 - 7.45 [facility] PCO2, Arterial 37 35 - 45 mmHg [facility] PO2, Arterial 103 85 - 104 mmHg [facility] Bicarbonate, Arterial 17.8(L) 20.0 - 26.0 mmol/L [facility] Base Excess, Arterial -8.5(L) -3.0 - 3.0 mmol/L [facility] Hgb Blood Gas 15.1 13.7 - 16.5 gm/dL [facility] Oxyhemoglobin, Arterial 96.6 94.0 - 97.0 % [facility] Carboxyhemoglob in, Arterial 0.4 % [facility] Comment: Nonsmokers: 0.5-1.5% COHB Smokers: Variable, but usually less than 10% Toxic: 20-30% COHB Lethal: Greater than 60% COHB Methemoglobin, Arterial 0.3 <=1.5 % [facility] Na Whole Blood 139 135 - 145 mmol/L [facility] K Whole Blood 4.5 3.5 - 5.0 mmol/L [facility] Comment: Please note: Patients with WBC >100,000 may have falsely elevated Potassium levels. Contact the Clinical Chemistry Laboratory if there are any questions. ICa Whole Blood 1.12(L) 1.15 - 1.33 mmol/L [facility] Comment: Note: ??Total bilirubin higher than 20 mg/dL may lead to falsely low ionized calcium. CL Whole Blood 110(H) 98 - 107 mmol/L [facility] Gluc Whole Bld 118 65 - 199 mg/dL [facility] Comment:Diabetes: >=200 mg/d L plus symptoms. Lactate WB 2.9(H) 0.5 - 2.2 mmol/L [facility] Blood specimen (specimen) 07/13/2017 3:46 PM EDT 07/13/2017 3:46 PM EDT Sriram Contreras MD POINT OF CARE TEST ORDERABLES Performing Organization Address City/State/[facility] Co de Phone Number [facility] [place] [address] * (ABNORMAL) BLOOD GAS 2 ARTERIAL (07/13/2017 2:06 PM EDT) pH, Arterial 7.32(L) 7.35 - 7.45 [facility] PCO2, Arterial 32(L) 35 - 45 mmHg [facility] PO2, Arterial 96 85 - 104 mmHg [facility] Bicarbonate, Arterial 16.0(L) 20.0 - 26.0 mmol/L [facility] Base Excess, Arterial -10.1(L) -3.0 - 3.0 mmol/L [facility] Hgb Blood Gas 14.0 13.7 - 16.5 gm/dL [facility] Oxyhemoglobin, Arterial 96.1 94.0 - 97.0 % [facility] Carboxyhemoglob in, Arterial 1.1 % [facility] Comment: Nonsmokers: 0.5-1.5% COHB Smokers: Variable, but usually less than 10% Toxic: 20-30% COHB Lethal: Greater than 60% COHB Methemoglobin, Arterial 0.3 <=1.5 % [facility] Na Whole Blood 139 135 - 145 mmol/L [facility] K Whole Blood 3.8 3.5 - 5.0 mmol/L [facility] Comment: Please note: Patients with WBC >100,000 may have falsely elevated Potassium levels. Contact the Clinical Chemistry Laboratory if there are any questions. ICa Whole Blood 1.02(L) 1.15 - 1.33 mmol/L [facility] Comment: Note: ??Total bilirubin higher than 20 mg/dL may lead to falsely low ionized calcium. CL Whole Blood 115(H) 98 - 107 mmol/L [facility] Gluc Whole Bld 111 65 - 199 mg/dL [facility] Comment:Diabetes: >=200 mg/d L plus symptoms. Lactate WB 2.5(H) 0.5 - 2.2 mmol/L [facility] Blood specimen (specimen) 07/13/2017 2:06 PM EDT 07/13/2017 2:06 PM EDT Sriram Contreras MD POINT OF CARE TEST ORDERABLES [facility] [place] [address] * (ABNORMAL) Comprehensive metabolic panel (non-fasting) (07/13/2017 12:56 PM EDT) Glucose 155 65 - 199 mg/dL [facility] Comment:Diabetes: >=200 mg/d L plus symptoms Blood Urea Nitrogen 17 10 - 20 mg/dL [facility] Creatinine 1.06 0.80 - 1.50 mg/dL [facility] Comment: Please note that the pediatric reference intervals supplied above were not validated at [facility]. Results from pediatric patients should be interpreted in conjunction to the patient's age, height and muscle mass. Sodium 142 135 - 145 mmol/L [facility] Potassium 5.7(H) 3.5 - 5.0 mmol/L [facility] Comment: Please note: ??Patients with WBC >100,000 may have falsely elevated Potassium levels. ??For accurate Potassium quantification in these patients send serum separator tube (gold top) for subsequent determinations. ??Contact the Clinical Chemistry Laboratory if there are any questions. Chloride 108(H) 98 - 107 mmol/L [facility] Carbon Dioxide 20(L) 22 - 31 mmol/L [facility] Anion Gap 14 5 - 15 mmol/L [facility] Calcium 7.9(L) 8.5 - 10.5 mg/dL [facility] Protein, Total 6.2 6.1 - 8.0 gm/dL [facility] Albumin 3.6 3.2 - 5.2 gm/dL [facility] Aspartate Aminotransferase 15 0 - 39 unit/L [facility] Alanine Aminotransferase 13 0 - 55 unit/L [facility] Alkaline Phosphatase 70 40 - 120 unit/L [facility] Bilirubin, Total 0.2 0.2 - 1.3 mg/dL [facility] Est Glomerular Filtration Rate [...] the following links into your internet browser. [email or web address] Blood specimen (specimen) 07/13/2017 12:56 PM EDT 07/13/2017 1:02 PM EDT Narrative Resulting Agency Comment Spec In Lab Sriram Contreras MD CHEMISTRY ORDERABL ES [facility] [place] [place] [address] * (ABNORMAL) BLOOD GAS 2 ARTERIAL (07/13/2017 12:15 PM EDT) pH, Arterial 7.34(L) 7.35 - 7.45 [facility] PCO2, Arterial 39 35 - 45 mmHg [facility] PO2, Arterial 68(L) 85 - 104 mmHg [facility] Bicarbonate, Arterial 20.4 20.0 - 26.0 mmol/L [facility] Base Excess, Arterial -5.4(L) -3.0 - 3.0 mmol/L [facility] Hgb Blood Gas 15.8 13.7 - 16.5 gm/dL [facility] Oxyhemoglobin, Arterial 91.8(L) 94.0 - 97.0 % [facility] Carboxyhemoglob in, Arterial 0.9 % [facility] Comment: Nonsmokers: 0.5-1.5% COHB Smokers: Variable, but usually less than 10% Toxic: 20-30% COHB Lethal: Greater than 60% COHB Methemoglobin, Arterial 0.3 <=1.5 % [facility] Na Whole Blood 138 135 - 145 mmol/L [facility] K Whole Blood 5.7(H) 3.5 - 5.0 mmol/L [facility] Comment: Please note: Patients with WBC >100,000 may have falsely elevated Potassium levels. Contact the Clinical Chemistry Laboratory if there are any questions. ICa Whole Blood 1.17 1.15 - 1.33 mmol/L [facility] Comment: Note: ??Total bilirubin higher than 20 mg/dL may lead to falsely low ionized calcium. CL Whole Blood 109(H) 98 - 107 mmol/L [facility] Gluc Whole Bld 125 65 - 199 mg/dL [facility] Comment:Diabetes: >=200 mg/d L plus symptoms. Lactate WB 3.7(H) 0.5 - 2.2 mmol/L [facility] Blood specimen (specimen) 07/13/2017 12:15 PM EDT 07/13/2017 12:15 PM EDT Sriram Contreras MD POINT OF CARE TEST ORDERABLES [facility] [place] [address] * Surgical Pathology Report (07/13/2017 12:04 PM EDT) Final Diagnosis [id number] ? Location: ICUS; IC14; A The signing [...] iglottic): Green ??Right epiglottis: Blue ??Lateral pharynx: Ovid ??Base of tongue mucosa + deep: Blue [...] edge; (6) tumor to closest lateral pharynx (Ovid) and deep specimen edges (black); (7) tumor [...] studies, if any. 07/21/2017 9:57 AM EDT [facility] MOUTH REGION STRUCTURE / [...] PM EDT Sriram Contreras MD PATHOLOGY/[place] [address] * Specimen to Pathology (surgical or derm) (07/13/2017 12:02 PM EDT) AP Specimen 07/13/2017 12:0 2 PM EDT 07/13/2017 12:02 PM EDT Narrative [facility] - 07/13/2017 12:02 PM EDT Specimen requisition ordered. ??Separate Pathology report to follow Sriram Contreras MD PATHOLOGY/CYTOLOGY ORDERABLES [facility] [place] [place] [address] * (ABNORMAL) BLOOD GAS 2 ARTERIAL (07/13/2017 10:35 AM EDT) pH, Arterial 7.31(L) 7.35 - 7.45 [facility] PCO2, Arterial 45 35 - 45 mmHg [facility] PO2, Arterial 87 85 - 104 mmHg [facility] Bicarbonate, Arterial 22.2 20.0 - 26.0 mmol/L [facility] Base Excess, Arterial -4.0(L) -3.0 - 3.0 mmol/L [facility] Hgb Blood Gas 15.6 13.7 - 16.5 gm/dL [facility] Oxyhemoglobin, Arterial 95.0 94.0 - 97.0 % [facility] Carboxyhemoglob in, Arterial 0.9 % [facility] Comment: Nonsmokers: 0.5-1.5% COHB Smokers: Variable, but usually less than 10% Toxic: 20-30% COHB Lethal: Greater than 60% COHB Methemoglobin, Arterial 0.0 <=1.5 % [facility] Na Whole Blood 138 135 - 145 mmol/L [facility] K Whole Blood 5.0 3.5 - 5.0 mmol/L [facility] Comment: Please note: Patients with WBC >100,000 may have falsely elevated Potassium levels. Contact the Clinical Chemistry Laboratory if there are any questions. ICa Whole Blood 1.20 1.15 - 1.33 mmol/L [facility] Comment: Note: ??Total bilirubin higher than 20 mg/dL may lead to falsely low ionized calcium. CL Whole Blood 108(H) 98 - 107 mmol/L [facility] Gluc Whole Bld 119 65 - 199 mg/dL [facility] Comment:Diabetes: >=200 mg/d L plus symptoms. Lactate WB 2.1 0.5 - 2.2 mmol/L [facility] Blood specimen (specimen) 07/13/2017 10:35 AM EDT 07/13/2017 10:35 AM EDT Sriram Contreras MD POINT OF CARE TEST ORDERABLES Performing Organization Address [facility] Co de Phone Number [facility] [place] [address] * ABORH Recheck Status (07/13/2017 6:27 AM EDT) ABORH Recheck Order Order Placed [facility] ABORH Type Recheck Complete [facility] Blood specimen (specimen) 07/13/2017 6:27 AM EDT 07/13/2017 6:38 AM EDT Narrative Resulting Agency Comment Spec In Lab Sriram Contreras MD BLOOD BANK LAB ORD ERABLES Performing Organization Address [facility] Co de Phone Number [facility] [place] [address] * Antibody screen (07/13/2017 6:27 AM EDT) Ab Screen Interp Negative [facility] Expires at [id number] on: 07/16/2017 [facility] Blood specimen (specimen) 07/13/2017 6:27 AM EDT 07/13/2017 6:43 AM EDT Narrative Resulting Agency Comment Spec In Lab Sriram Contreras MD BLOOD BANK LAB ORD ERABLES Performing Organization Address City/[facility] Co de Phone Number [facility] [place] [address] * ABO/Rh Typing (07/13/2017 6:27 AM EDT) ABORH Type O Neg [facility] Blood specimen (specimen) 07/13/2017 6:27 AM EDT 07/13/2017 6:43 AM EDT Narrative Resulting Agency Comment Spec In Lab Sriram Contreras MD BLOOD BANK LAB ORD ERABLES [facility] [place] [place] [address] documented in this encounter Visit Diagnoses Not [...] PRN, Starting on 07/19/17 at 1732, Until Wed07/29/17 at 1535, High [...] Routine 1055 (Given - Provider: Jeannie Stiles, RN)2052 (Given - Provider: Dixie Randhawa, BRENNA) 0936 (Given - Provider: Jv Valdez, RN)2134 (Given - Provider: Abeba Porter, RN) 0923 (Given - Provider: Radha Colon, RN) enoxaparin (LOVENOX) injection 100 mg 100 mg, Subcutaneous, EVERY 12 HOURS SCHEDULED (2 times per day), First dose on Wed07/27/17 at 1700, Until Discontinued, Routine 1608 (Given - Provider: Jeannie Stiles, BRENNA) 0935 (Given - Provider: Jv Valdez, RN)2134 (Given - Provider: Abeba Porter, BRENNA) 1022 (Given - Provider: Rahda Colon, RN - Comment: missing dose) insulin [...] not met) 0000 (Not Given - Provider: Dxiie Randhawa RN - Reason: Order parameters not [...] BRENNA) 0922 (Given - Provider: Radha Colon, BRENNA) magnesium sulfate 2 g in sterile water 50 mL (COMPLETED) 2 g, Intravenous, ONCE, 1 dose, On 07/27/17 at 1130, Administer over 120 Minutes [...] BRENNA) 0923 (Given - Provider: Radha Colon, BRENNA)1321 (Given - Provider: Radha Colon RN) pantoprazole [...] RN) 0923 (See Alternative - Provider: Radha Colon RN) pantoprazole (PROTONIX) tablet 40 mg(Linked Group [...] 0322 (Rate/Dose Verify - Provider: Lorna Browne, BRENNA)0634 (New Bag - Provider: Lorna Browne RN)1605 [...] Embolism documented in this encounter Care Teams Oil Burner Relationship Specialty Start Date End Date Jovon Sifuentes MD [address] [place] [address] PCP - General 09/30/10 09/10/21 documented as of this encounter
--- OUTSIDE RECORDS SUMMARY | 2024-12-05 14:16 | XMS_ITS | Encounter Summary ---
[place] [address] Care Team Providers Care Watch Electrician Name Role Phone Jovon Sifuentes MD Primary Care Provider [phone] Encounter Details Date Type Department Care Team (Latest Contact Info) Description 06/02/2017 Multidisciplinary Ca re Committee [place]ematology [place] [address] Kaiden Dos Santos MD [address] [place] [address] [place] [address] Social History Tobacco Use Types Packs/Day Years [...] this encounter Progress Notes * Kaiden Dos Satnos MD - 06/02/2017 6:45 AM EDT Head [...] AM EDT Office Visit Hematology/Oncology at [address] [phone] Dmitry Bhatti MD [facility] [place] [address] Ellen Mcrae APRN [facility] [place] [address] 01/30/2025 11:30 AM EDT Infusion Hematology Oncology at [address] [phone] documented as of this encounter Visit Diagnoses Not on filedocumented in this encounter Care Teams Watch Electrician Relationship Specialty Start Date End Date Jovon Sifuentes MD [address] [place] [address] PCP - General 09/30/10 09/10/21 documented as of this encounter
--- OUTSIDE RECORDS SUMMARY | 2024-12-05 14:16 | XMS_ITS | Encounter Summary ---
[place] [address] Care Team Providers Care Pediatric Ophthalmologist Name Role Phone Jovon Sifuentes MD Primary Care Provider [phone] Reason for Visit * Auth/Cert Specialty Diagnoses / Procedures Referred By Contbela t Referred To Contact Diagnoses base of tongue cancer Procedures PRO LARYNGOSCOPY, DIRECT, DX, OP MICROSCOP PRO BIOPSY OROPHARYNX LARYNGOSCOPY, WITH MICROSCOPE (WRVU 2.57) BIOPSY, OROPHARYNX (WRVU 1.44) Referral ID Status Reason Start Date Expiration Date Visits Re quested Visits Authorized [id number] 1 1 Encounter Details Date Type Department Care Team (Latest Contact Info) Description 05/24/2017 7:17 AM EDT - 05/24/2017 12:45 PM EDT Hospital Encounter [place] [address] Keiko Madera MD [facility] [place] [address] Discharge Disposition: Home Social History Tobacco Use [...] the next week, call the clinic at [phone] to confirm your appointment, or for questions [...] Contact Information ENT triage nurse ENT doctor data operations manager [phone] (after hours) documented in this encounter Medications [...] Madera MD - 05/24/2017 10:22 AM EDT [facility] Operative Note Patient Name: Jose Bee : [id number] MR#: [id number] Case Date: 05/24/2017 Surgeon: Surgeon(s) and Role: [...] 11:00 AM EDT Office Visit Hematology/Oncology at [address] [phone] Dmitry Bhatti MD [facility] HEMATOLOGY [place] [address] Ellen Mcrae APRN [facility] [place] [address] 01/30/2025 11:30 AM EDT Infusion Hematology Oncology at [address] [phone] documented as of this encounter Procedures Procedure [...] AM EDT 05/24/2017 10:09 AM EDT Narrative [facility] - 05/24/2017 10:09 AM EDT Specimen requisition ordered. ??Separate Pathology report to follow Keiko Madera MD PATHOLOGY/[place] [address] * Specimen to Pathology (surgical or derm) (05/24/2017 10:09 AM EDT) AP Specimen 05/24/2017 10:0 9 AM EDT 05/24/2017 10:09 AM EDT Narrative [facility] - 05/24/2017 10:09 AM EDT Specimen requisition ordered. ??Separate Pathology report to follow Keiko Madera MD PATHOLOGY/CYTOLOGY ORDERABLES Performing Organization Address City/[facility]/ZIP [place] [address] * Specimen to Pathology (surgical or derm) (05/24/2017 10:08 AM EDT) AP Specimen 05/24/2017 10:0 8 AM EDT 05/24/2017 10:08 AM EDT Narrative [facility] - 05/24/2017 10:08 AM EDT Specimen requisition ordered. ??Separate Pathology report to follow Keiko Madera MD PATHOLOGY/[place] [address] * Specimen to Pathology (surgical or derm) (05/24/2017 10:08 AM EDT) AP Specimen 05/24/2017 10:0 8 AM EDT 05/24/2017 10:08 AM EDT [facility] - 05/24/2017 10:08 AM EDT Specimen requisition ordered. ??Separate Pathology report to follow Keiko Madera MD PATHOLOGY/CYTOLOGY ORDERABLES Performing Organization Address City/[facility]/[place] [address] * Specimen to Pathology (surgical or derm) (05/24/2017 10:08 AM EDT) AP Specimen 05/24/2017 10:0 8 AM EDT 05/24/2017 10:08 AM EDT [facility] - 05/24/2017 10:08 AM EDT Specimen requisition ordered. ??Separate Pathology report to follow Keiko aMdera MD PATHOLOGY/CYTOLOGY ORDERABLES Performing Organization Address City/[facility]/ZIP Co de Phone Number [facility] [place] [address] * Specimen to Pathology (surgical or derm) (05/24/2017 10:08 AM EDT) AP Specimen 05/24/2017 10:0 8 AM EDT 05/24/2017 10:08 AM EDT [facility] - 05/24/2017 10:08 AM EDT Specimen requisition ordered. ??Separate Pathology report to follow Keiko Madera MD PATHOLOGY/CYTOLOGY ORDERABLES Performing Organization Address City/[facility]/[place]IP [place] [address] * Specimen to Pathology (surgical or derm) (05/24/2017 10:08 AM EDT) AP Specimen 05/24/2017 10:0 8 AM EDT 05/24/2017 10:08 AM EDT [facility] - 05/24/2017 10:08 AM EDT Specimen requisition ordered. ??Separate Pathology report to follow Keiko Madera MD PATHOLOGY/CYTOLOGY ORDERABLES [facility] [place] [address] * Surgical Pathology Report (05/24/2017 10:07 AM EDT) Final Diagnosis [id number] ?Location: [facility]; A The signing pathologist has (i) [...] developed and its performance determined by the [facility] laboratory for Clinical Genomics and Advanced Technology (CGAT). It has not been cleared or approved by the U.S. Food and Drug Administration. This test is used for clinical purposes and should not be considered as investigational or for research purposes. The CGAT is certified by the Clinical Laboratory Improvement Act of 1988 and as such is allowed to perform high complexity clinical testing. References: ?? Ila TW, Diego CORLEY. Biochemistry 1991;30:9937-2707; Cash CHANG, et al. J pathol 1999;189:12-19; [place] MCLAIN, et al. J Clin Microbiol 2000 ?;38 ??:357-361. Reviewed by: Roel Heredia, PhD, [facility], Director-[facility] ([facility], 06/04/17 08:23) Electronically signed by: ??Mey [...] Sections/Processing: (T1) ??sns 06/07/2017 9:24 AM EDT [facility] BILATERAL PALATINE TONSILS / Unknown [...] AM EDT Keiko Madera MD PATHOLOGY/CYTOLOGY ORDERABLES [facility] [place] [address] * Surgical Pathology Report (05/24/2017 10:07 AM EDT) Surgical Pathology Report [id number] ?Location: [facility]; The signing pathologist has (i) examined the [...] ??Soft, red tissues . Sections/Processing: (T1) ??sns [facility] 05/24/2017 10:0 7 AM EDT Keiko Madera MD PATHOLOGY/CYTOLOGY ORDERABLES [facility] [place] [address] documented in this encounter Visit Diagnoses Not [...] of Surgery (Day of Procedure) 0845 ([facility] - Prov ider: Madisyn Seals RN) PRN [...] MD) documented in this encounter Care Teams Pediatric Ophthalmologist Relationship Specialty Start Date End Date Jovon Sifuentes MD [address] [place] [address] PCP - General 09/30/10 09/10/21 documented as of this encounter
--- OUTSIDE RECORDS SUMMARY | 2024-12-05 14:16 | XMS_ITS | Encounter Summary ---
[place] [address] Care Team Providers Care Director Of Product Development Name Role Phone Jovon Sifuentes MD Primary Care Provider [phone] Reason for Visit * Auth/Cert Specialty Diagnoses [...] Expiration Date Visits Re quested Visits Authorized [id number] 1 1 Encounter Details Date Type Department Care Team (Late st Contact Info) Description 07/13/2017 8:03 AM EDT Anesthesia Event [facility] [place] [address] Jane Quezada MD [facility] [place] [address] Karla Chavarria CRNA [facility] [place] [address] Anesthesia Record Procedure Summary Procedure Name Responsible [...] 17.8 BE -8.5 Hb 15.1 K 4.53 [id number] Lactate 2.9 1611 Quick Note Muscle relaxati [...] 0836; metacarpal vein (top of hand), right; mukt-qqd-mowwst catheter system; 20 gauge, 1 in length; [...] 0850; median vein (underside of arm), left; xzyz-bsz-szhiit catheter system; 18 gauge; Burchman; removed inadvertently, [...] Quezada MD - 07/14/2017 9:11 PM EDT [facility] Department of Anesthesiology Post-procedure Note Patient: Jose [employer] Procedure Summary Date Anesthesia Start Anesthesia Stop Room / Location 07/13/17 0803 194 [facility] 2 / [facility] Procedure Diagnosis Surgeon Responsible Provider PHARYNGECTOMY, [...] Anesthesiologist: Giovanni Yanez MD; Jane Quezada MD FIREWOOD CUTTER: Karla Chavarria CRNA Last (1hr) Vitals: BP Temp Pulse Resp SpO2 Patient Location: PACU/[facility] Level of Consciousness: Sedated (Pharmacologic/Intentional) Pain [...] MD Report given to ICU charge and student counsellor. I took over last hour of case, [...] [facility] ??? KNEE ARTHROSCOPY christelle. [facility] ??? PRO BIOPSY OROPHARYNX N/A 05/24/2017 BIOPSY, OROPHARYNX (WRVU 1.44) performed by Zafar Madera MD at [facility] MAIN OR ??? PRO LARYNGOSCOPY, DIRCT, OP SCOPE, BIOPSY N/A 05/24/2017 LARYNGOSCOPY, MICROSCOPE, WITH BIOPSY (WRVU 3.55) performed by Zafar Madera MD at [facility] MAIN OR ??? QUADRACEPS TENDON REPAIR Right 04/2016 [facility] ??? TONSILLECTOMY Social History Substance [...] 11:00 AM EDT Office Visit Hematology/Oncology at [address] [phone] Dmitry Bhatti MD [facility] [place] [address] Ellen Mcrae APRN [facility] [place] [address] 01/30/2025 11:30 AM EDT Infusion Hematology Oncology at [address] [phone] documented as of this encounter Visit Diagnoses [...] EDT documented in this encounter Care Teams Director Of Product Development Relationship Specialty Start Date End Date Jovon Sifuentes MD [address] [place] [address] PCP - General 09/30/10 09/10/21 documented as of this encounter
--- OUTSIDE RECORDS SUMMARY | 2024-12-05 14:16 | XMS_ITS | Encounter Summary ---
[place] [address] Care Team Providers Care Principal Statistical Scientist Name Role Phone Jovon Sifuentes MD Primary Care Provider [phone] Encounter Details Date Type Department Care Team (Late st Contact Info) Description 06/21/2017 Telephone [place] [phone] Rhianna Page RN Social History Tobacco Use [...] AM EDT Office Visit Hematology/Oncology at [address] [phone] Dmitry Bhatti MD [facility] DR HEMATOLOGY [place] [address] Ellen Mcrae APRN [facility] [place] [address] 01/30/2025 11:30 AM EDT Infusion Hematology Oncology at [address] [phone] documented as of this encounter Visit Diagnoses Not on filedocumented in this encounter Care Teams Principal Statistical Scientist Relationship Specialty Start Date End Date Jovon Sifuentes MD [address] [place] [address] PCP - General 09/30/10 09/10/21 documented as of this encounter
--- OUTSIDE RECORDS SUMMARY | 2024-12-05 14:16 | XMS_ITS | Encounter Summary ---
[place] [address] Care Team Providers Care Main Entree Cook And Cashier Name Role Phone Jovon Sifuentes MD Primary Care Provider [phone] Reason for Referral * Diagnostic Test (Routine) - Closed Specialty Diagnoses / Procedures Referred By Contac t Referred To Contact Radiology Diagnoses Other acute pulmonary embolism without acute cor pulmonale Carcinoma of base of tongue Procedures PET CT Standard Skull Base to Mid-Thigh Kaiden Dos Santos MD [facility] [place] [place] [address] [place] [address] Referral ID Status Reason Start Date Expiration Date V isits Requested Visits Authorized [id number] Closed Specialty Service Requested 06/10/2017 08/08/2017 2 2 Reason for Visit * Diagnostic Test (Routine) - Closed Specialty Diagnoses / Procedures Referred By Contac t Referred To Contact Radiology Diagnoses Other acute pulmonary embolism without acute cor pulmonale Carcinoma of base of tongue Procedures PET CT Standard Skull Base to Mid-Thigh Kaiden Dos Santos MD [facility] [place] [address] [place] [address] Referral ID Status Reason Start Date Expiration Date V isits Requested Visits Authorized [id number] Closed Specialty Service Requested 06/10/2017 08/08/2017 2 2 Encounter Details Date Type Department Care Team (Latest Contact Info) Description 06/17/2017 12:02 PM EDT Hospital Encounter [place] [address] Kaiden Dos Santos MD [address] [place] [address] [place] [address] Other acute pulmonary embolism without acute cor [...] 11:00 AM EDT Office Visit Hematology/Oncology at [address] [phone] Dmitry Bhatti MD [facility] [place] [address] Ellen Mcrae APRN [facility] [place] [address] 01/30/2025 11:30 AM EDT Infusion Hematology Oncology at [address] [phone] documented as of this encounter [...] Thank you for referring this patient to [facility]. I have personally reviewed the image(s) and the residents interpretation and agree with the findings, Lizy Padgett at 06/17/2017 3:54 PM Narrative 06/17/2017 3:54 PM EDT EXAMINATION: PET CT STANDARD SKULL BASE TO MID-THIGH CLINICAL HISTORY: head/neck cancer, initial staging exam TECHNIQUE: Following IV injection of 85-wlqvze-8-deoxyglucose (FDG) a standard uptake of approximately 60 [...] staging exam TECHNIQUE: Following IV injection of 48-jjvpas-1-deoxyglucose (FDG) astandard uptake of approximately 60 minutes, [...] Thank you for referring this patient to [facility]. I have personally reviewed the image(s) and the residents interpretationand agree with the findings, Lizy Padgett at 06/17/2017 3:54 PM Kaiden Dos Santos MD IMG PET ORDERABLES * POCT Glucose (06/17/2017 12:14 PM EDT) Glucose, POC 82 65 - 199 mg/dL [facility] Comment: Supplemental ranges: <140 mg/dL before meals <180 mg/dL all other times of the day Blood specimen (specimen) 06/17/2017 12:14 PM EDT 06/17/2017 12:14 PM EDT Kaiden Dos Santos MD POINT OF CARE TEST O RDERABLES [facility] [place] [address] documented in this encounter Visit Diagnoses Diagnosis [...] Arm documented in this encounter Care Teams Main Entree Cook And Cashier Relationship Specialty Start Date End Date Jovon Sifuentes MD [address] [place] [id number] PCP - General 09/30/10 09/10/21 documented as of this encounter
--- OUTSIDE RECORDS SUMMARY | 2024-12-05 14:16 | XMS_ITS | Encounter Summary ---
Author Organization [facility] [place] [address] Care Team Providers Care Systems Operator Name Role Phone Jovon Sifuentes MD Primary Care Provider Encounter Details Date Type Department Care Team (Late st Contact Info) Description 06/28/2017 Telephone [place] [address] Sriram Contreras MD [facility] [place] [address] Social History Tobacco Use Types Packs/Day Years [...] 11:00 AM EDT Office Visit Hematology/Oncology at [address] [phone] Dmitry Bhatti MD [facility] DR [place] [address] Ellen Mcrae APRN [facility] [place] [address] 01/30/2025 11:30 AM EDT Infusion Hematology Oncology at [address] [phone] documented as of this encounter Visit Diagnoses Not on filedocumented in this encounter Care Teams Systems Operator Relationship Specialty Start Date End Date Jovon Sifuentes MD [address] [place] [address] PCP - General 09/30/10 09/10/21 documented as of this encounter
--- OUTSIDE RECORDS SUMMARY | 2024-12-05 14:16 | XMS_ITS | Encounter Summary ---
Author Organization [facility] [place] [address] Care Team Providers Care Bindery Machine Operator Name Role Phone Jovon Sifuentes MD Primary Care Provider Reason for Referral * Diagnostic Test (Routine) - Closed Specialty Diagnoses / Procedures Referred By Huma t Referred To Contact Radiology Diagnoses Other acute pulmonary embolism without acute cor pulmonale Carcinoma of base of tongue Procedures PET CT Standard Skull Base to Mid-Thigh Kaiden Dos Santos MD [facility] [address] [place] [address] Referral ID Status Reason Start Date Expiration Date V isits Requested Visits Authorized [id number] Closed Specialty Service Requested 06/10/2017 08/08/2017 2 2 Reason for Visit * Reason Comments Schedule Office Case * Consultation (Routine) - Specialty Diagnoses / Procedures Referred By Huma t Referred To Contact Hematology and Oncology Diagnoses Cancer of base of tongue Zafar Madera MD [facility] [place] [address] [facility] Hem Onc [address] [place] [address] Referral ID Status Reason Start Date Expiration Date V isits Requested Visits Authorized [id number] Consult, Test & Treat 04/27/2017 04/27/2018 1 1 Encounter Details Date Type Department Care Team (Late st Contact Info) Description 06/03/2017 10:00 AM EDT Office Visit Hematology and Oncology at [facility] [place] [address] Kaiden Dos Santos MD [address] [place] [address] [place] [address] Other acute pulmonary embolism without acute cor [...] the past few months.He presented to the [facility] with these throat symptoms as well as a more global problem of malaise, low-grade fevers, and cough; he was seen by Dr. Conrad in [facility] in March, where fullness in the [...] about myocardial function Geographic issues: Lives in [facility] [facility] [place] more [place] for treatment [...] 17 Occupational History ??? 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 He is to Briana for 40 yrs. 4 children - All live in different states - [place]. Enjoys raising Beef Cattle and doing Civil War and Living History and shoot Black powder/Antique firearms. He enjoys builiding Firearms/Blacksmithing - [place]coal, [place], etc. No family history on file. Outpatient [...] cancer, and the patient with a distant 24-wurp-uqii smoking history. This would give him a [...] Kaiden Dos Santos MD, FACP Hematology/Oncology Section [phone] Voice recognition software used for this note; please excuse billiard table mechanic errors. documented in this encounter Plan of Treatment Upcoming Encounters Date Type Department Care Team (Late st Contact Info) Description 01/30/2025 11:00 AM EDT Office Visit Hematology/Oncology at [address] [phone] Dmitry Bhatti MD [facility] DR HEMATOLOGY [place] [address] Ellen Mcrae APRN [facility] [place] [address] 01/30/2025 11:30 AM EDT Infusion Hematology Oncology at [address] [phone] documented as of this encounter Results * [...] Thank you for referring this patient to [facility]. I have personally reviewed the image(s) and the residents interpretation and agree with the findings, Lizy Padgett at 06/17/2017 3:54 PM Narrative 06/17/2017 3:54 PM EDT EXAMINATION: PET CT STANDARD SKULL BASE TO MID-THIGH CLINICAL HISTORY: head/neck cancer, initial staging exam TECHNIQUE: Following IV injection of 65-rvbjms-9-deoxyglucose (FDG) a standard uptake of approximately 60 [...] staging exam TECHNIQUE: Following IV injection of 48-jprlai-2-deoxyglucose (FDG) astandard uptake of approximately 60 minutes, [...] Thank you for referring this patient to [facility]. I have personally [...] tongue documented in this encounter Care Teams Bindery Machine Operator Relationship Specialty Start Date End Date Jovon Sifuentes MD [address] [place] [address] PCP - General 09/30/10 09/10/21 documented as of this encounter
--- OUTSIDE RECORDS SUMMARY | 2024-12-05 14:16 | XMS_ITS | Encounter Summary ---
[place] [address] Care Team Providers Care Seed Cutter Name Role Phone Jovon Sifuentes MD Primary Care Provider Reason for Visit * Reason Comments Follow Up Surgery Laryngoscopy w/biops y 05/24/17 Encounter Details Date Type Department Care Team (Late st Contact Info) Description 06/03/2017 2:20 PM EDT Office Visit [place] [address] Zafar Madera MD [facility] [place] [address] Tonsil cancer Social History Tobacco Use Types [...] ??? ACHILLES TENDON SURGERY Right 1996 [facility] ??? KNEE ARTHROSCOPY christelle. [facility] ??? PRO BIOPSY OROPHARYNX N/A 05/24/2017 BIOPSY, OROPHARYNX (WRVU 1.44) performed by Zafar Madera MD at [facility] MAIN OR ??? PRO LARYNGOSCOPY, DIRCT, OP SCOPE, BIOPSY N/A 05/24/2017 LARYNGOSCOPY, MICROSCOPE, WITH BIOPSY (WRVU 3.55) performed by Zafar Madera MD at [facility] MAIN OR ??? QUADRACEPS TENDON REPAIR Right 04/2016 [facility] ??? TONSILLECTOMY Current Outpatient Prescriptions: ??? [...] education: 17 Occupational History ??? 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 He is to Briana for 40 yrs. 4 children - All live in different states - [place] Enjoys raising Beef Cattle and doing Civil War and Living History and shoot Black powder/Antique firearms. He enjoys builiding Firearms/Blacksmithing - [place]coal, [place], etc. Review of Systems Objective: Physical Exam [...] AM EDT Office Visit Hematology/Oncology at [address] [phone] Dmitry Bhatti MD [facility] HEMATOLOGY [place] [address] Ellen Mcrae APRN [facility] [place] [address] 01/30/2025 11:30 AM EDT Infusion Hematology Oncology at [address] [phone] documented as of this encounter Visit Diagnoses Diagnosis Tonsil cancer Malignant neoplasm of tonsil documented in this encounter Care Teams Seed Cutter Relationship Specialty Start Date End Date Jovon Sifuentes MD [address] [place] [address] PCP - General 09/30/10 09/10/21 documented as of this encounter
--- OUTSIDE RECORDS SUMMARY | 2024-12-05 14:16 | XMS_ITS | Encounter Summary ---
[place] [address] Care Team Providers Care Naprapath Name Role Phone Jovon Sifuentes MD Primary Care Provider Reason for Referral * Diagnostic Test (Routine) - Closed Specialty Diagnoses / Procedures Referred By Contac t Referred To Contact Radiology Diagnoses Cancer of base of tongue Procedures CT Neck Soft Tissue w Contrast (Generic) Sriram Contreras MD [facility] [place] [address] [facility] [place] [address] Referral ID Status Reason Start Date Expiration Date V isits Requested Visits Authorized [id number] Closed Specialty Service Requested 06/17/2017 06/17/2018 1 1 Reason for Visit * Reason Comments Establish Care Here to discuss surg daisy options like TORS for tonsil cancer Encounter Details Date Type Department Care Team (Late st Contact Info) Description 06/17/2017 4:40 PM EDT Office [place] [phone] Sriram Contreras MD [facility] [place] [address] Cancer of base of tongue [...] Contreras MD - 06/17/2017 4:40 PM EDT [facility] NEW [...] the TelePack Unit and uploaded to the Dot Forensic Medical Examiner. Findings Nasal cavity normal Nasopharynx normal Oropharynx [...] 11:00 AM EDT Office Visit Hematology/Oncology at [address] [phone] Dmitry Bhatti MD [facility] [place] [address] Ellen Mcrae APRN [facility] [place] [address] 01/30/2025 11:30 AM EDT Infusion Hematology Oncology at [address] [phone] documented as of this [...] tongue documented in this encounter Care Teams Naprapath Relationship Specialty Start Date End Date Jovon Sifuentes MD [address] [place] [address] PCP - General 09/30/10 09/10/21 documented as of this encounter
--- OUTSIDE RECORDS SUMMARY | 2024-12-05 14:16 | XMS_ITS | Encounter Summary ---
[place] [address] Care Team Providers Care Assorter Laundry Name Role Phone Jovon Sifuentes MD Primary Care Provider [phone] Reason for Visit * Auth/Cert Specialty Diagnoses / Procedures Referred By Huma t Referred To Contact Diagnoses base of tongue cancer Procedures PRO LARYNGOSCOPY, DIRECT, DX, OP MICROSCOP PRO BIOPSY OROPHARYNX LARYNGOSCOPY, WITH MICROSCOPE (WRVU 2.57) BIOPSY, OROPHARYNX (WRVU 1.44) Referral ID Status Reason Start Date Expiration Date Visits Re quested Visits Authorized [id number] 1 1 Encounter Details Date Type Department Care Team (Late st Contact Info) Description 05/24/2017 8:58 AM EDT - 05/24/2017 10:26 AM EDT Surgery [place] [address] Keiko Madera MD [facility] [place] [address] LARYNGOSCOPY, MICROSCOPE, WITH BIOPSY (WRVU 3.55) Social [...] the next week, call the clinic at [phone] to confirm your appointment, or for questions [...] Contact Information ENT triage nurse ENT doctor agronomy research manager [phone] (after hours) documented in this encounter Medications [...] Madera MD - 05/24/2017 10:22 AM EDT [facility] Operative Note Patient Name: Jose Bee : [id number] MR#: [id number] Case Date: 05/24/2017 Surgeon: Surgeon(s) and Role: [...] AM EDT Office Visit Hematology/Oncology at [address] [phone] Dmitry Bhatti MD [facility] HEMATOLOGY [place] [address] Ellen Mcrae APRN [facility] DR [place] [address] 01/30/2025 11:30 AM EDT Infusion Hematology Oncology at [address] [phone] documented as of this encounter Procedures Procedure [...] AM EDT 05/24/2017 10:[address] [facility] - 05/24/2017 10:09 AM EDT Specimen requisition ordered. ??Separate Pathology report to follow Keiko Madera MD PATHOLOGY/CYTOLOGY ORDERABLES Performing Organization Address City/[facility]/ZIP [place] [address] * Specimen to Pathology (surgical or derm) (05/24/2017 10:09 AM EDT) AP Specimen 05/24/2017 10:0 9 AM EDT 05/24/2017 10:[address] [facility] - 05/24/2017 10:09 AM EDT Specimen requisition ordered. ??Separate Pathology report to follow Keiko Madera MD PATHOLOGY/CYTOLOGY ORDERABLES Performing Organization Address City/[facility]/ZIP Co de Phone Number [facility] [place] [address] * Specimen to Pathology (surgical or derm) (05/24/2017 10:08 AM EDT) AP Specimen 05/24/2017 10:0 8 AM EDT 05/24/2017 10:[address] [facility] - 05/24/2017 10:08 AM EDT Specimen requisition ordered. ??Separate Pathology report to follow Keiko Madera MD PATHOLOGY/CYTOLOGY ORDERABLES [facility] [place] [address] * Specimen to Pathology (surgical or derm) (05/24/2017 10:08 AM EDT) AP Specimen 05/24/2017 10:0 8 AM EDT 05/24/2017 10:08 AM EDT [facility] - 05/24/2017 10:08 AM EDT Specimen requisition ordered. ??Separate Pathology report to follow Keiko Madera MD PATHOLOGY/CYTOLOGY ORDERABLES Performing Organization Address City/[facility]/ZIP [place] [address] * Specimen to Pathology (surgical or derm) (05/24/2017 10:08 AM EDT) AP Specimen 05/24/2017 10:0 8 AM EDT 05/24/2017 10:08 AM EDT [facility] - 05/24/2017 10:08 AM EDT Specimen requisition ordered. ??Separate Pathology report to follow Keiko Madera MD PATHOLOGY/CYTOLOGY ORDERABLES Performing Organization Address [facility] [place] [address] * Specimen to Pathology (surgical or derm) (05/24/2017 10:08 AM EDT) AP Specimen 05/24/2017 10:0 8 AM EDT 05/24/2017 10:08 AM EDT [facility] - 05/24/2017 10:08 AM EDT Specimen requisition ordered. ??Separate Pathology report to follow Keiko Madera MD PATHOLOGY/CYTOLOGY ORDERABLES Performing Organization Address [facility] [place] [address] * Specimen to Pathology (surgical or derm) (05/24/2017 10:08 AM EDT) AP Specimen 05/24/2017 10:0 8 AM EDT 05/24/2017 10:08 AM EDT [facility] - 05/24/2017 10:08 AM EDT Specimen requisition ordered. ??Separate Pathology report to follow Keiko Madera MD PATHOLOGY/CYTOLOGY ORDERABLES [facility] [place] [address] * Surgical Pathology Report (05/24/2017 10:07 AM EDT) Final Diagnosis [id number] ?Location: [facility]; [facility]; A The signing pathologist has (i) examined [...] developed and its performance determined by the [facility] laboratory for Clinical Genomics and Advanced Technology [...] References: ?? Ila TW, Diego DH. Biochemistry 1991;30:0393-8111; Cash CHANG, et al. J pathol 1999;189:12-19; [place] MCLAIN, et al. J Clin Microbiol 2000 ?;38 ??:357-361. Reviewed by: Roel Heredia, PhD, [facility], Director-[facility] ([facility], 06/04/17 08:23) Electronically signed by: ??Mey Lockwodo MD Verified: ??06/07/2017 ?Pathologist ?Surgical Pathology DIAGNOSIS [...] Sections/Processing: (T1) ??sns 06/07/2017 9:[address] [facility] BILATERAL PALATINE TONSILS / Unknown [...] AM EDT Keiko Madera MD PATHOLOGY/CYTOLOGY ORDERABLES [facility] [place] [address] * Surgical Pathology Report (05/24/2017 10:07 AM EDT) Surgical Pathology Report [id number] ?Location: [facility]; [facility]; The signing pathologist has (i) examined the [...] ??Soft, red tissues . Sections/Processing: (T1) ??sns [facility] 05/24/2017 10:0 7 AM EDT Keiko Madera MD PATHOLOGY/CYTOLOGY ORDERABLES [facility] [place] [address] documented in this encounter Visit Diagnoses Not [...] MD) documented in this encounter Care Teams Assorter Laundry Relationship Specialty Start Date End Date Jovon Sifuentes MD [address] [place] [address] PCP - General 09/30/10 09/10/21 documented as of this encounter
--- OUTSIDE RECORDS SUMMARY | 2024-12-05 14:16 | XMS_ITS | Encounter Summary ---
Author Organization Formerly [facility] [place] [address] Care Team Providers Care Carpet Or Rug Layer Helper Name Role Phone Jovon Sifuentes MD Primary Care Provider [phone] Encounter Details Date Type Department Care Team (Late Contact Info) Description 05/03/2017 Telephone [place] [phone] Rosa Buitrago Social History Tobacco Use Types [...] AM EDT Office Visit Hematology/Oncology at [address] [phone] Dmitry Bhatti MD [facility] [place]Y [place] [address] Ellen Mcrae APRN [facility] [place] [address] 01/30/2025 11:30 AM EDT Infusion Hematology Oncology at [address] [phone] documented as of this encounter Visit Diagnoses Not on filedocumented in this encounter Care Teams Carpet Or Rug Layer Helper Relationship Specialty Start Date End Date Jovon Sifuentes MD [address] [place] [address] PCP - General 09/30/10 09/10/21 documented as of this encounter
--- OUTSIDE RECORDS SUMMARY | 2024-12-05 14:16 | XMS_ITS | Encounter Summary ---
[place] [address] Care Team Providers Care Third Officer Name Role Phone Jovon Sifuentes MD Primary Care Provider Encounter Details Date Type Department Care Team (Late Contact Info) Description 06/21/2017 Telephone [place] [phone] Tremayne De León Social History Tobacco Use [...] AM EDT Office Visit Hematology/Oncology at [address] [phone] Dmitry Bhatti MD [facility] DR HEMATOLOGY [place] [address] Ellen Mcrae APRN [facility] [place] [address] 01/30/2025 11:30 AM EDT Infusion Hematology Oncology at [address] [phone] documented as of this encounter Visit Diagnoses Not on filedocumented in this encounter Care Teams Third Officer Relationship Specialty Start Date End Date Jovon Sifuentes MD [address] [place] [address] PCP - General 09/30/10 09/10/21 documented as of this encounter
--- OUTSIDE RECORDS SUMMARY | 2024-12-05 14:16 | XMS_ITS | Encounter Summary ---
Author Organization [facility] [place] [address] Care Team Providers Care Data Systems Manager Name Role Phone Jovon Sifuentes MD Primary Care Provider [phone] Reason for Visit * Auth/Cert Specialty Diagnoses / Procedures Referred By Contac t Referred To Contact Diagnoses base of tongue cancer Procedures PRO LARYNGOSCOPY, DIRECT, DX, OP MICROSCOP PRO BIOPSY OROPHARYNX LARYNGOSCOPY, WITH MICROSCOPE (WRVU 2.57) BIOPSY, OROPHARYNX (WRVU 1.44) Referral ID Status Reason Start Date Expiration Date Visits Re quested Visits Authorized [id number] 1 1 Encounter Details Date Type Department Care Team (Late st Contact Info) Description 05/24/2017 9:28 AM EDT Anesthesia [place] [address] Brock Tang MD [facility] DR [place] [address] Joselito Hill MD [facility] [address] [place] [address] Anesthesia Record Procedure Summary Procedure Name Responsible [...] 0836; metacarpal vein (top of hand), right; [id number] catheter system; 20 gauge, 1 in length; [...] Tang MD - 05/24/2017 10:51 AM EDT [facility] Department of Anesthesiology Post-procedure Note Patient: Jose Bee Procedure Summary Date Anesthesia Start Anesthesia Stop Room / Location 05/24/17927 [facility] OR Procedure Diagnosis Surgeon Responsible Provider LARYNGOSCOPY, MICROSCOPE, WITH BIOPSY (WRVU 3.55) (N/A Throat); BIOPSY, OROPHARYNX (WRVU 1.44) (N/AMouth) (base of tongue cancer) Zafar Madera MD Pouliot, Ryan C, MD All Anesthesia Providers: Anesthesiologist: Brock Tang MD Orbitread Operator: Joselito Hill MD Last (1hr) Vitals: BP (!) 128/92 (05/24/17 1032) Temp 35.9 ??C (96.6 ??F) (05/24/17 1032) Pulse 80 (05/24/17 1032) Resp 16 (05/24/17 1032) SpO2 96 % (05/24/17 1032) Patient Location: PACU/[facility] Level of Consciousness: Awake and Alert [...] fibrillation March 2017: noted in ED in [facility]. Previously noted to be paroxysmal. No awareness. CHADS2-VASc=1 (age). Started on apixaban for PE ??? Acute pulmonary embolism March 2017: noted on CT in [facility]. RLL. Treated with apixaban ??? Benign prostatic hyperplasia ??? Lesion of tongue 2008: globus evaluation 2016: mass at base of right tongue noted in [facility]. Scheduled for bx. Delayed by development of [...] AM EDT Office Visit Hematology/Oncology at [address] [phone] Dmitry Bhatti MD [facility] DR HEMATOLOGY [place] [address] Ellen Mcrae APRN [facility] [place] [address] 01/30/2025 11:30 AM EDT Infusion Hematology Oncology at [address] [phone] documented as of this encounter Visit Diagnoses [...] mg documented in this encounter Care Teams Data Systems Manager Relationship Specialty Start Date End Date Jovon Sifuentes MD [address] [place] [address] PCP - General 09/30/10 09/10/21 documented as of this encounter
--- OUTSIDE RECORDS SUMMARY | 2024-12-05 14:16 | XMS_ITS | Encounter Summary ---
[place] [address] Care Team Providers Care Well Logging Operator Mud Analysis Name Role Phone Jovon Sifuentes MD Primary Care Provider [phone] Reason for Referral * Diagnostic Test (Routine) - Closed Specialty Diagnoses / Procedures Referred By Contac t Referred To Contact Cardiology Diagnoses Atrial fibrillation, unspecified type Cardiomegaly Pulmonary infarction Procedures Echocardiogram Transthoracic(Leb) Jovon Sifuentes MD [address] [place] [address] [facility] [place] [address] Referral ID Status Reason Start Date Expiration Date V isits Requested Visits Authorized [id number] Closed Specialty Service Requested 04/07/2017 04/07/2018 1 1 Reason for Visit * Diagnostic Test (Routine) - Closed Specialty Diagnoses / Procedures Referred By Contac t Referred To Contact Cardiology Diagnoses Atrial fibrillation, unspecified type Cardiomegaly Pulmonary infarction Procedures Echocardiogram Transthoracic(Leb) Jovon Sifuentes MD [address] [place] [address] [facility] [place] [address] Referral ID Status Reason Start Date Expiration Date V isits Requested Visits Authorized [id number] Closed Specialty Service Requested 04/07/2017 04/07/2018 1 1 Encounter Details Date Type Department Care Team (Latest Contact Info) Description 04/30/2017 8:23 AM EDT - 04/30/2017 11:59 PM EDT Hospital Encounter [place] [address] Atrial fibrillation, unspecified type; Cardiomegaly; Pulmonary infarction [...] AM EDT Office Visit Hematology/Oncology at [address] [phone] Dmitry Bhatti MD [facility] [place] [address] Ellen Mcrae APRN [facility] [place] [address] 01/30/2025 11:30 AM EDT Infusion Hematology Oncology at [address] [phone] documented as of this encounter Procedures Procedure [...] M ?? (Age): 1950(66y) Med Rec#: ? [id number] ?Sex: ?M ? Site Loc: ? [facility] ?Ht / Wt: ??193(cm)/139(kg) Pt. Loc: ?Echo Lab ?BSA: ?2.66 Study Date: ?? 04/30/2017 ?Pt. Type: Outpatient Tape: ? Referring: Jovon Sifuentes Referring: Kashmir Lr ([id number]) Reading: Russ Weber ([id number]) Reagent Tender: Marysol Zavala BA, RUST Diagnosis: *ICD-10-PCS Unspecified atrial fibrillation (I48.91) *ICD-10-PCS Cardiomegaly (I51.7) CPT Codes: *Optison (33175US) Rhythm: ? A-Fib BP: ? 121/71 SUMMARY: [...] ? Pulmonic Valve/Qp:Qs ?Value ?Units (Range) ? IL end-diastolic Vma0.8 ?m/sec ? Measurement Trending Name [...] ? Mid-Inferior ?Normal ? Mid-Inferoseptal ?Normal ? Cambria-Septal ? Normal ? Cambria-Anterior ? Normal ? Cambria-Lateral ?Normal ? [place]ria-Inferior ? Normal ? Cambria-Tip ?Normal ? This report has been electronically signed by: Russ Weber MD ? 04/30/2017 09:43:10 Images reviewed and interpretation verified [facility] Cardiac Ultrasound Laboratory Procedure Note Russ Weber MD - 04/30/2017 Procedure: Transthoracic Echocardiogram Patient: EUSEBIA Anaya (Age): 1950(66y) Med Rec#: [id number] Sex: M Site Loc: [facility] Ht / Wt: 193(cm)/139(kg) Pt. Loc: Echo Lab BSA: 2.66 Study Date: 04/30/2017 Pt. Type: Outpatient Tape: Referring: Jovon Sifuentes Referring: Kashmir Lr ([id number]) Reading: Russ Weber ([id number]) Reagent Tender: Marysol Zavala BA, RUST Diagnosis: *ICD-10-PCS Unspecified atrial fibrillation (I48.91) *ICD-10-PCS Cardiomegaly (I51.7) CPT Codes: *Optison (50259ZY) Rhythm: A-Fib BP: 121/71 SUMMARY: 1. The [...] 2 cm Pulmonic Valve/Qp:Qs Value Units (Range) IL end-diastolic Vma0.8 m/sec Measurement Trending Name 04/30/2017 LV EDV BP 161 LVIDd (2D) 4.58 LV ESV BP 64 LA ESV BP (MOD) 120 LVIDs (2D) 3.23 Wall Motion: Segment Name Rest Base-Anteroseptal Normal Base-Anterior Normal Base-Anterolateral Normal Base-Posterolateral Normal Base-Inferior Normal Base-Inferoseptal Normal Mid-Anteroseptal Normal Mid-Anterior Normal Mid-Anterolateral Normal Mid-Posterolateral Normal Mid-Inferior Normal Mid-Inferoseptal Normal Cambria-Septal Normal Cambria-Anterior Normal Cambria-Lateral Normal Cambria-Inferior Normal Cambria-Tip Normal This report has been electronically signed by: Russ Weber MD 04/30/2017 09:43:10 Images reviewed and interpretation verified [facility] Cardiac Ultrasound Laboratory Jovon Sifuentes MD ECHO ORDERABLES documented in this encounter Visit Diagnoses Diagnosis Atrial fibrillation, unspecified type Cardiomegaly Pulmonary infarction Other pulmonary embolism and infarction documented in this encounter Care Teams Well Logging Operator Mud Analysis Relationship Specialty Start Date End Date Jovon Sifuentes MD [address] [place] [address] PCP - General 09/30/10 09/10/21 documented as of this encounter
--- OUTSIDE RECORDS SUMMARY | 2024-12-05 14:16 | XMS_ITS | Encounter Summary ---
Author Organization [facility] [place] [address] Care Team Providers Care Licensed Sales Assistant Name Role Phone Jovon Sifuentes MD Primary Care Provider Encounter Details Date Type Department Care Team (Late Contact Info) Description 04/29/2017 Telephone [place] [phone] Vane Cardona Social History Tobacco Use Types [...] AM EDT Office Visit Hematology/Oncology at [address] [phone] Dmitry Bhatti MD [facility] [place] [address] Ellen Mcrae APRN [facility] [place] [address] 01/30/2025 11:30 AM EDT Infusion Hematology Oncology at [address] [phone] documented as of this encounter Visit Diagnoses Not on filedocumented in this encounter Care Teams Licensed Sales Assistant Relationship Specialty Start Date End Date Jovon Sifuentes MD [address] [place] [address] PCP - General 09/30/10 09/10/21 documented as of this encounter
--- OUTSIDE RECORDS SUMMARY | 2024-12-05 14:16 | XMS_ITS | Encounter Summary ---
[place] [address] Care Team Providers Care Principal Hardware Architect Name Role Phone Jovon Sifuentes MD Primary Care Provider [phone] Encounter Details Date Type Department Care Team (Latest Contact Info) Description 06/18/2017 Multidisciplinary Ca re Committee Hematology [place] [address] Kaiden Dos Santos MD [address] [place] [address] [place] [address] Social History Tobacco Use Types Packs/Day Years [...] AM EDT Office Visit Hematology/Oncology at [address] [phone] Dmitry Bhatti MD [facility] HEMATOLOGY [place] [address] Ellen Mcrae APRN [facility] [place] [address] 01/30/2025 11:30 AM EDT Infusion Hematology Oncology at [address] [phone] documented as of this encounter Visit Diagnoses Not on filedocumented in this encounter Care Teams Principal Hardware Architect Relationship Specialty Start Date End Date Jovon Sifuentes MD [address] [place] [address] PCP - General 09/30/10 09/10/21 documented as of this encounter
--- OUTSIDE RECORDS SUMMARY | 2024-12-05 14:16 | XMS_ITS | Encounter Summary ---
Author Organization [facility] [place] [address] Care Team Providers Care Threat Monitoring Analyst Name Role Phone Jovon Sifuentes MD Primary Care Provider Encounter Details Date Type Department Care Team (Late st Contact Info) Description 06/03/2017 [place] [address] Jeannie Arteaga MSW Social History Tobacco Use Types Packs/Day Years Used Date Smoking Tobacco: Former Cigarettes 969 - 1995 Pipe Comments:quit cigarettes in 1995 [...] MSW - 06/03/2017 3:12 PM EDT Continuing Smoke Jumper - Social Work Note: BUSINESS SUPPORT MANAGER met with pt to introduce self/role, assess psychosocial needs, and provide resource referrals/support as needed. Pt denies any concerns about insurance, finances, transportation, or community resources at this time. Pt explained that current priority is sorting out medical plan of care. BUSINESS SUPPORT MANAGER informed pt as to [facility]- role and availability for any needs/questions that arise as the plan of care continues to evolve. Pt met with radiation oncology, medical oncology, and ENT surgeon today; they received a lot of information. Plan of care still undecided (between radiation vs. Surgery). If pt pursues radiation, it would be in [facility], closer to home. No further SW intervention planned at this time, however, I am available for ongoing support and resource referral, as needed Pager [phone] documented in this encounter Plan of Treatment Upcoming Encounters Date Type Department Care Team (Late st Contact Info) Description 01/30/2025 11:00 AM EDT Office Visit Hematology/Oncology at [address] [phone] Dmitry Bhatti MD [facility] [place] [address] Ellen Mcrae APRN [facility] [place] [address] 01/30/2025 11:30 AM EDT Infusion Hematology Oncology at [address] [phone] documented as of this encounter Visit Diagnoses Not on filedocumented in this encounter Care Teams Threat Monitoring Analyst Relationship Specialty Start Date End Date Jovon Sifuentes MD [address] [place] [address] PCP - General 09/30/10 09/10/21 documented as of this encounter
--- OUTSIDE RECORDS SUMMARY | 2024-12-05 14:16 | XMS_ITS | Encounter Summary ---
Author Organization Formerly [facility] Address [facility] [place] [address] Care Team Providers Care Bridge Repair Crew Person Name Role Phone Joovn Sifuentes MD Primary Care Provider [phone] Reason for Visit * Consultation (Routine) - Closed Specialty Diagnoses / Procedures Referred By Huma t Referred To Contact Radiation Oncology Diagnoses Cancer of base of tongue Zafar Madera MD [facility] [address] [facility] [place] [address] Referral ID Status Reason Start Date Expiration Date V isits Requested Visits Authorized [id number] Closed Consult, Test & Treat 04/27/2017 04/27/2018 1 1 Encounter Details Date Type Department Care Team (Late st Contact Info) Description 06/03/2017 1:00 PM EDT Office Visit [place] [phone] Clement Sanchez MD [facility] [place] [address] Carcinoma of base of tongue [...] Wednesday 8 AM to 5 PM for [facility] for [facility] If you have questions about your [...] in injury A Radiation Oncology doctor is animal control officer after our normal hours and on weekends. To call for urgent medical issues from radiation treatments that can not wait until normal business hours, please call and have the tapping machine operator automatic page the Radiation Oncologist animal control officer. documented in this encounter Progress Notes * [...] if 4 or above SOCIAL ASSESSMENT: See [facility] social assessment information entered. Support Systems: [...] in the section of Radiation Oncology at [facility] regarding his HN Cancer cancer ONCOLOGIC HISTORY [...] ??? ACHILLES TENDON SURGERY Right 1996 [facility] ??? KNEE ARTHROSCOPY christelle. [facility] ??? PRO BIOPSY OROPHARYNX N/A 05/24/2017 BIOPSY, OROPHARYNX (WRVU 1.44) performed by Zafar Madera MD at [facility] MAIN OR ??? PRO LARYNGOSCOPY, DIRCT, OP SCOPE, BIOPSY N/A 05/24/2017 LARYNGOSCOPY, MICROSCOPE, WITH BIOPSY (WRVU 3.55) performed by Zafar Madera MD at [facility] MAIN OR ??? QUADRACEPS TENDON REPAIR Right 04/2016 [facility] ??? TONSILLECTOMY Social History Social History ??? Marital status: Spouse name: Briana ??? Number of children: 4 ??? 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 He is to Briana for 40 yrs. 4 children - All live in different states - One Kathleen Enjoys raising Beef Cattle and doing Civil War and Living History and shoot Black powder/Antique firearms. He enjoys builiding Firearms/Blacksmithing - [place]coal, [place], etc. No family history on file. ROS: [...] for TORS. he has been discussed at [facility] tumor board and it wasrecommended that either option is appropriate.These recommendations are in line with NCCN recommendations. We discussed the rationale, logistics (including simulation, planning, and treatment) and efficacy of definitive radiotherapy. We discussed the risks of therapy, including but not limited to short term sequelae (fatigue, skin erythema, mucositis, dysphagia, ageusia, xerostomia, weight loss) and senior living sequelae (tissue fibrosis, lymphedema, manager terminal dysphagia potentially requiring a permanent feeding tube, [...] Prophylactic feeding tube: not indicated Referral to Police Chief Deputy / COIL MACHINE SUPERVISOR Dental Issues: to be cleared, instructions given OTHER ISSUES Pulmonary Embolus: continue anticoagulation documented in this encounter Plan of Treatment Upcoming Encounters Date Type Department Care Team (Late st Contact Info) Description 01/30/2025 11:00 AM EDT Office Visit Hematology/Oncology at [address] [phone] Dmitry Bhatti MD [facility] DR [place] [address] Ellen Mcrae APRN [facility] [place] [address] 01/30/2025 11:30 AM EDT Infusion Hematology Oncology at [address] [phone] Scheduled Referrals Name Type Priority Associated Diagnoses Orde r Schedule Referral to Radiation Oncology Outpatient Referral Routine Cancer of base of tongue Ordered: 04/27/2017 documented as of this encounter Visit Diagnoses Diagnosis Carcinoma of base of tongue Malignant neoplasm of base of tongue documented in this encounter Care Teams Bridge Repair Crew Person Relationship Specialty Start Date End Date Jovon Sifuentes MD [address] [place] [address] PCP - General 09/30/10 09/10/21 documented as of this encounter
--- OUTSIDE RECORDS SUMMARY | 2024-12-05 14:16 | XMS_ITS | Encounter Summary ---
[place] [address] Care Team Providers Care [employer] Certified Internetwork Expert Name Role Phone Jovon Sifuentes MD Primary Care Provider Reason for Visit * Diagnostic Test (Routine) - Closed Specialty Diagnoses / Procedures Referred By Contac t Referred To Contact Radiology Diagnoses Other acute pulmonary embolism without acute cor pulmonale Carcinoma of base of tongue Procedures PET CT Standard Skull Base to Mid-Thigh Kaiden Dos Santos MD [facility] [place] [address] [place] [address] Referral ID Status Reason Start Date Expiration Date V isits Requested Visits Authorized [id number] Closed Specialty Service Requested 06/10/2017 08/08/2017 2 2 Encounter Details Date Type Department Care Team (Latest Contact Info) Description 06/17/2017 12:03 PM EDT - 06/17/2017 11:59 PM EDT Hospital Encounter [place] [phone] Kaiden Dos Santos MD [address] [place] [address] [place] [address] Discharge Disposition: Home Social History Tobacco Use [...] 11:00 AM EDT Office Visit Hematology/Oncology at [address] [phone] Dmitry Bhatti MD [facility] [place] [address] Ellen Mcrae APRN [facility] [place] [address] 01/30/2025 11:30 AM EDT Infusion Hematology Oncology at [address] [phone] documented as of this encounter [...] Thank you for referring this patient to [facility]. I have personally reviewed the image(s) and the residents interpretation and agree with the findings, Lizy Padgett at 06/17/2017 3:54 PM Narrative 06/17/2017 3:54 PM EDT EXAMINATION: PET CT STANDARD SKULL BASE TO MID-THIGH CLINICAL HISTORY: head/neck cancer, initial staging exam TECHNIQUE: Following IV injection of 91-qjrvkr-1-deoxyglucose (FDG) a standard uptake of approximately 60 [...] staging exam TECHNIQUE: Following IV injection of 77-xgxwvt-9-deoxyglucose (FDG) astandard uptake of approximately 60 minutes, [...] Thank you for referring this patient to [facility]. I have personally reviewed the image(s) and the residents interpretationand agree with the findings, Lizy Padgett at 06/17/2017 3:54 PM Kaiden Dos Santos MD IMG PET ORDERABLES documented in this encounter Visit Diagnoses Not on filedocumented in this encounter Care Teams [employer] Certified Internetwork Expert Relationship Specialty Start Date End Date Jovon Sifuentes MD [address] [place] [address] PCP - General 09/30/10 09/10/21 documented as of this encounter
--- OUTSIDE RECORDS SUMMARY | 2024-12-05 14:16 | XMS_ITS | Encounter Summary ---
Author Organization [facility] Address [facility] [address] [facility] [place] [address] Care Team Providers Care Sheep Rancher Name Role Phone Jovon Sifuentes MD Primary Care Provider [phone] Reason for Visit * Reason Comments Atrial Fibrillation * Consultation (Routine) - Closed Specialty Diagnoses / Procedures Referred By Contbela t Referred To Contact Cardiology Diagnoses A-fib,enlarged heart, pulmonary embolism Stressenger, GILLIAN Farmer [address] [place] [address] [facility] [address] [place] [phone] Referral ID Status Reason Start Date Expiration Date V isits Requested Visits Authorized [id number] Closed Connection Center 04/07/2017 04/07/2018 1 1 Encounter Details Date Type Department Care Team (Late st Contact Info) Description 04/30/2017 10:40 AM EDT Office Visit Cardiology at [address] [phone] Kashmir Lr MD [facility] [place] [address] Other acute pulmonary embolism without [...] original note were not included. CARDIOVASCULAR MEDICINE [place] [address] Subjective Identification Jose Bee is a 66 y.o. patient of Jovon Sifuentes MD with the following cardiovascular issues: 1. Atrial fibrillation--- dx in 2014, aspirin changed to apixaban at time of PE 2. Pulmonary embolism--- March 2017. RLL. [facility]. 3. Cardiomegaly noted on [facility] in [facility]--- normal echo here April 2017 Comorbidities include KORI on CPAP, ED, elevated BMI, BPH, skin cancer on left scalp in late , and mass at base of right side of tongue. Lives with in [place], [place]. Interested in Civil War living history. 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 Friends with Dayron Cardoza, orthopedic surgeon in [place], [place]. Present Illness Seen today at the request of Dr. Sifuentes and Marleny Brewer [facility]. Several years ago noticed sensation in throat [...] compensated Given unprovoked nature and AF, favor para educator anticoagulation Encouraged gradual resumption of physical activity Preop evaluation Agree with plan for interrupting DOAC as outlined in note of Dr. Deleon of hematology No need for stress testing prior to surgery Low BP Asymptomatic. Normal cardiac function. No evidence of sepsis This appears to be constitutional Avoid BP lowering meds Follow up prn Kashmir Lr MD [facility] cc: ?? Jovon Sifuentes MD [address] / [place] [address] documented in this encounter Plan of Treatment Upcoming Encounters Date Type Department Care Team (Late st Contact Info) Description 01/30/2025 11:00 AM EDT Office Visit Hematology/Oncology at [address] [phone] Dmitry Bhatti MD [facility] DR HEMATOLOGY [place] [address] Ellen Mcrae APRN [facility] [place] [address] 01/30/2025 11:30 AM EDT Infusion Hematology Oncology at [address] [phone] documented as of this encounter Visit Diagnoses Diagnosis Other acute pulmonary embolism without acute cor pulmonale Persistent atrial fibrillation Atrial fibrillation Lesion of tongue Other specified conditions of the tongue documented in this encounter Care Teams Sheep Rancher Relationship Specialty Start Date End Date Jovon Sifuentes MD [address] [place] [address] PCP - General 09/30/10 09/10/21 documented as of this encounter
--- OUTSIDE RECORDS SUMMARY | 2024-12-05 14:16 | XMS_ITS | Encounter Summary ---
Author Organization [facility] [place] [address] Care Team Providers Care Casting Plug Assembler Name Role Phone Jovon Sifuentes MD Primary Care Provider [phone] Reason for Visit * Auth/Cert Specialty Diagnoses [...] Expiration Date Visits Re quested Visits Authorized [id number] 1 1 Encounter Details Date Type Department Care Team (Late st Contact Info) Description 07/13/2017 7:30 AM EDT - 07/13/2017 3:58 PM EDT [facility] [place] [id number] Sriram Contreras MD [facility] [address] PHARYNGECTOMY, LIMITED (WRVU 19.13) Social History Tobacco [...] staging exam TECHNIQUE: Following IV injection of 49-bhsdyn-1-deoxyglucose (FDG) a standard uptake of approximately 60 [...] Thank you for referring this patient to [facility]. I have personally reviewed the [...] -You can reach the ENT clinic at [phone] for appointment questions. -The ENT triage nurse is available at [phone] -For urgent issues during evenings and weekends the ENT resident physician interventional cardiologist can be reached through [facility] gear generator set up operator at [phone] Follow Up: You will need to follow [...] Geovanna Deleon MD Hematology and Oncology at [facility] [phone] General Instructions None __ Primary Care Doctor: Jovon Sifuentes MD [phone] Signed: Celso Mejía MD 07/29/2017 documented in [...] -You can reach the ENT clinic at [phone] for appointment questions. -The ENT triage nurse is available at [phone] -For urgent issues during evenings and weekends the ENT resident physician interventional cardiologist can be reached through [facility] gear generator set up operator at [phone] Follow Up: You will need to follow [...] Geovanna Deleon MD Hematology and Oncology at [facility] [phone] documented in this encounter Medications at Time [...] att. providers found Jose Bee discharged to [facility] by private car with Spouse. All belongings sent with patient. DONNA removed, incision healing well, no significant drainage, no dehiscence, no significant erythema, skin free from pressure ulcers. Discharge instructions given to . Report called to Vidhi at [facility] @ 1340. * Alexus Soler RN - 07/29/2017 11:38 AM EDT Patient accepts bed at [facility]. Spoke with Patient and in regards to transportation. will provide transportation to [facility]. Adrienne Soler RN Care Management * Lexy Scott - 07/29/2017 10:57 AM EDT Office of Care Management/Card Sorter Patient Name: Jose Bee : 1950 Patient has been offered a [facility] bed at [facility]. The patient will be transported by private transportation. No MD to MD report necessary Please call Nursing Report to , ask for Vidhi. Info to accompany patient: Narcotic Prescriptions Copies of Medication Administration Records and IV sheets for past 10 days. Plan: Card Sorter will be available to the patient and Concrete Pump Operator-RN and/or Social Workerfor further assistance. Patient will be discharged to: [facility] [address] [facility] [address] [place] [address] Lexy M Snow, Card Sorter * Luana Henry RN - 07/29/2017 7:00 AM EDT Patient arrived via bed to rm 514, oob sitting in chair. Aox4, calling . Denies pain. Plan for discharge today pending bed. 1 assist to bathroom. Voids with out difficulty. [place] to floor and call srinivasan system. Would like to take a shower and have his CPAP cleaned. Will report to oncoming RN/CONCEPCION. * Kayley Chris RCP - 07/29/2017 4:40 AM EDT Patient was compliant with home CPAP usage tonight. * Anay Diallo RN - 07/28/2017 3:40 PM EDT Concrete Pump Operator Follow Up Note Patient plan of care discussed in multidisciplinary rounds. Met with patient and to assess continuing care and discharge needs. Continues to require hospitalization for Head and neck cancer. Discharge plan to snf when medically ready. Concrete Pump Operator to follow with team and family to assist with discharge needs when patient ready for discharge. Anay Diallo RN Case Management for [facility] pgr [phone] * Celso Mejía [...] Mejía MD, PGY1 07/28/17 7:05 AM Pager: [phone] * Anay Diallo RN - 07/27/2017 2:44 PM EDT Based on discussions with the multi-disciplinary healthcare team, the patient would benefit from skilled level of care at discharge. ?? I have met with the patient/agency sales representative to discuss discharge planning needs. I have provided the [facility], Office of Care Management letter from the Hospital Librarian pertaining to rehab referrals. I have also provided a letter describing our affiliations within the [facility] and educated them about their right to choose where referrals are placed. ?? I reviewed the different levels of rehab including SNF, swing, acute and LTAC with the patient/agency sales representative. ?? The patient/agency sales representative has been provided a list of facilities within their preferred geographic area. ?? I have requested that the patient/agency sales representative provide at least three choices for referral. ?? The patient/agency sales representative have requested referrals to: 1. [facility] ?? PHONE: [phone] FAX: [phone].. 2. [facility] [address] [place] [address] ?? 3. [facility] ([facility]) [address] [place] [address] ? Expected date of discharge: TBD Note routed to Card Sorter who will communicate referrals to facilities and [...] Mejía MD, PGY1 07/27/17 7:01 AM Pager: [phone] * Collette Schultz - 07/26/2017 8:21 PM EDT Zach Encounter Note Patient Name: Jose Bee : [id number] MR#: [id number] Admit Date: 07/13/2017 6:04 AM Hospital Day 13 days Narrative: Attempted return visit - pt sleeping. Time in Direct Care: 0 min. Collette Schultz 07/26/2017 * Collette Schultz - 07/26/2017 3:00 PM EDT Zach Encounter Note Patient Name: Jose Bee : [id number] MR#: [id number] Admit Date: 07/13/2017 6:04 AM Hospital Day 13 days Narrative: Cable Television Line Technician visit per Consult Order Assessment: Pt spoke [...] Diallo RN - 07/26/2017 2:30 PM EDT Concrete Pump Operator Follow Up Note Patient plan of care discussed in multidisciplinary rounds. Met with patient to assess continuing care and discharge needs. Continues to require hospitalization for Head and neck cancer. Discharge plan uncertain at this time. Concrete Pump Operator to follow with team and family to assist with discharge needs when patient ready for discharge. Anay Diallo RN Case Management for [facility] pgr [phone] * Briana Goel RN - 07/26/2017 2:29 PM EDT [facility] Interventional Radiology ? Interventional Radiology [...] patient's provider, ENT Service Dr. Jackie Mejía #[id number] , regarding above. Paged, callback # provided [...] lb 2.5 oz). Admit Wt: 133.36 kg [place] body weight: 90.4 kg Type of access: [...] vitamins and minerals. Assessment: Estimated Nutrition Needs: 1395-9642 calories (20-25 kcal/kg IBW) 135-160 grams protein (1.5-2.0 g/kg IBW) Patient is out of the ICU and out on the floor. Tube feedings need adjustment as pt is no longer onpropofol. Appears tube feedings are still medically indicated given pt is s/p swallow eval and [facility] recommends continuation of dobhoff TF for now. [...] Mejía MD, PGY1 07/26/17 9:01 AM Pager: [phone] * Calista Peralta RT - 07/26/2017 12:27 [...] 7.44 7.41 7.42 PO2ART 67* 60* 78* FHD3VTW 39 37 39 BEART 1.2 -2.0 0.3 [...] 7.44 7.41 7.42 PO2ART 67* 60* 78* [id number] 39 37 39 BEART 1.2 -2.0 0.3 [...] MD, FAAP Pediatric Otolaryngology [facility] ([facility]) [facility] * Beena Saini RCP [...] 07/23/2017 3:50 PM EDT Office of Care Management(OCM)/Concrete Pump Operator(CM) Service: ENT Pt remains intubated at this [...] get appropriate choices after recs are made. Concrete Pump Operator Roc Valdez RN, BSN Pager #[phone] * Sony Oliva MD - 07/23/2017 11:31 [...] 07/23/2017 No results found for: PHART, PO2ART, ZNF3QVH ASSESSMENT, MANAGEMENT, and DECISION MAKING: potential for [...] LEAST ONE OF THESE DX to USE 92812 ARDS Stupor Hypoxemic Resp Failure (Fi02>50%) Delirium [...] LEAST ONE OF THESE DX to USE 75896 ARDS Stupor Hypoxemic Resp Failure (Fi02>50%) Delirium [...] to reach the patient's provider, Red 1 9650, regarding above. Monitor weight. Jose Bee is a 66 y.o. male Principal Problem: Head and neck cancer Active Problems: Pulmonary embolism Overview: Recurrent. Atrial fibrillation Overview: March 2017: noted in ED in [facility]. Previously noted to be paroxysmal. [...] LEAST ONE OF THESE DX to USE 32060 ARDS Stupor Hypoxemic Resp Failure (Fi02>50%) Delirium [...] coarse Secretions: Moderate /large amounts of thick hedz Assessment / Events / Plan of the [...] PGY2 07/20/17 7:21 AM * Kaiden Gorman, [facility] - 07/20/2017 4:35 AM EDT AMV [...] LEAST ONE OF THESE DX to USE 15669 ARDS Stupor Hypoxemic Resp Failure (Fi02>50%) Delirium [...] during the daytime, frequent reorientation Cardiovascular: Metoprolol HSIRA for BP Pulmonary: Extubated and maintaining sats [...] plan. Lakeshia Mckeon MD * Jeannie Jewell, [facility] - 07/17/2017 7:24 PM EDT 07/17/17 [...] Jr, MD, PGY2 07/17/17 8:21 PM Pager: [phone] (For daytime 6AM - 6PM) Please contact on-call night ENT pr intern for issues between 6PM - 6AM [...] the need arise fora surgical airway. - [facility] vent protocol - HOB 30 degrees [...] kg (294 lb). Admit Weight: 133.36 kg [place] Body Weight: 90.3 kg I/O last 1 [...] service. Nutrition to follow. * Lillian Pardo, [facility] - 07/16/2017 1:48 PM EDT Speech-Language Pathology Initial Consult ?? Order received and acknowledged. Records reviewed and pt and RN contacted. Pt remains intubated at this time. Assessment deferred at this time. Please re- consult after pt successfully extubated. ?? Lillian Pardo MA CCC-[facility] Inpatient Rehabilitation Medicine pager:# [phone] * Salazar Bhagat MD - 07/16/2017 11:57 [...] need arise for a surgical airway. - [facility] vent protocol - HOB 30 degrees [...] Martino MD, PGY1 07/16/17 9:12 AM Pager: [phone] (For daytime 6AM - 6PM) Please contact on-call night ENT pr intern for issues between 6PM - 6AM * Supa Sharif, CORRECTIONAL SUPERVISOR - 07/15/2017 8:15 PM EDT AMV Protocol: [...] need arise for a surgical airway. - [facility] vent protocol - Dexamethasone x3 doses [...] Martino MD, PGY1 07/15/17 7:06 AM Pager: [phone] (For daytime 6AM - 6PM) Please contact on-call night ENT pr intern for issues between 6PM - 6AM * Supa Sharif, [facility] - 07/14/2017 9:40 PM EDT AMV [...] ?? Pulm: nasally intubated, difficult airway - [facility] vent protocol - Dexamethasone x3 doses [...] MD 07/14/2017 6:47 PM * Adam Montana, [facility] - 07/14/2017 2:03 PM EDT AMV [...] Martino MD, PGY1 07/14/17 9:38 AM Pager: [phone] (For daytime 6AM - 6PM) Please contact on-call night ENT pr intern for issues between 6PM - 6AM [...] of this encounter: 133.4 kg (294 lb). [place] Body Weight: 90.3 kg I/O last 1 [...] ETT secured via suture. Of note, the balloon pilot balloon line is wrapped up in [...] Date ??? ACHILLES TENDON SURGERY Right 1996 [facility] [place] ??? KNEE ARTHROSCOPY christelle. [facility] ??? PRO BIOPSY OROPHARYNX N/A 05/24/2017 BIOPSY, OROPHARYNX (WRVU 1.44) performed by Zafar Madera MD at [facility] OR ??? PRO LARYNGOSCOPY, DIRCT, OP SCOPE, BIOPSY N/A 05/24/2017 LARYNGOSCOPY, MICROSCOPE, WITH BIOPSY (WRVU 3.55) performed by Zafar Madera MD at [facility] OR ??? QUADRACEPS TENDON REPAIR [...] education: 17 Occupational History ??? 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 He is to Briana for 40 yrs. 4 children - All live in different states - [place] Enjoys raising Beef Cattle and doing Civil War and Living History and shoot Black powder/Antique firearms. He enjoys builiding Firearms/Blacksmithing - Charcoal, Cocoa, etc. Review of Systems: Not obtained due [...] - currently stable Pulm: nasally intubated - [facility] vent protocol GI: DHT - Diet: [...] this case performed under IRB Protocol Study [id number] (Improving throat cancer surgical outcomes through intra-operative [...] to the planned procedure. Hand Hygiene: The feather baler did perform hand hygiene prior to arterial [...] hypoxic respiratory failure Location of Procedure: ICU [facility]. Risks and Benefits: The risks [...] * Plan of Care - Sriram Thompson [facility] - 07/29/2017 9:56 AM EDT Problem: Patient [...] RECOMMENDATIONS: ?? Continue dysphagia soft diet and [place]-thick liquids. ?? Upright to feed. ?? Small bites/sips. ?? Medications crushed in applesauce. Sriram Thompson MS [facility] Speech-Language Pathologist Rehabilitation Medicine Pager - [phone] Problem: Acute Rehab Services Goal & Intervention [...] Anticipated Discharge Disposition: inpatient rehabilitation facility Pager: [phone] OTONIEL JOSHUA OT 07/28/2017 Occupational Therapy Rehabilitation [...] * Plan of Care - Sriram Thompson, [facility] - 07/28/2017 2:18 PM EDT Problem: Patient [...] documentation. RECOMMENDATIONS: ?? Dysphagia soft diet and [place]-thick liquids. ?? Upright to feed. ?? Small bites / sips. ?? Crush medications in applesauce when possible. Sriram Thompson MS [facility] Speech-Language Pathologist Rehabilitation Medicine Pager - [phone] Problem: Acute Rehab Services Goal & Intervention [...] PO intake. Awaiting plan for D/C to [facility] facility. INDIVIDUALIZED FALL PREVENTION INTERVENTIONS: Patient-specific fall [...] Anticipated Discharge Disposition: inpatient rehabilitation facility Pager: [phone] CRISTIAN NELSON, PT 07/27/2017 Physical Therapy Rehabilitation [...] sit/sit to supine -- Bed Mobility Goal, [place] Level independent -- Bed Mobility Goal, Outcome Achieved -- goal ongoing Goal: Gait Training Goal Stand Alone Therapy Goal Outcome: Ongoing (Interventions Implemented as Appropriate) 07/26/17 1329 07/27/17 1230 Gait Training Goal Gait Training Goal, Date Established 07/26/17 -- Gait Training Goal, Time to Achieve 30 days -- Gait Training Goal, [place] Level supervision required -- Gait Training Goal, [...] days -- Transfer Training Goal, Activity Type mbk-xh-tujiv/nyzlg-xc-wrd;eeo-eb-dvwis/uhuty-bg-jda -- Transfer Train Goal, [place] Level supervision required -- Transfer Training Goal, Assist Device walker, rolling -- Transfer Training Goal, Outcome -- goal ongoing * Plan of Care - Sriram Thompson, [facility] - 07/27/2017 10:59 AM EDT Problem: Patient [...] in applesauce. Sriram Thompson MS [facility] Speech-Language Pathologist Rehabilitation Medicine Pager - [phone] Problem: Acute Rehab Services Goal & Intervention [...] PLAN MOVING FORWARD: -PEG tube. -IV abx -[facility] consult. -hep gtt. INDIVIDUALIZED FALL PREVENTION INTERVENTIONS: [...] Pt appeared anxious and frustrated this morning. Cable Television Line Technician consulted and talked with patient today. During a transfer to the [facility] it was determinedthat tube feeding was leaking [...] Anticipated Discharge Disposition: inpatient rehabilitation facility Pager: [phone] OTONIEL JOSHUA OT 07/26/2017 Occupational Therapy Rehabilitation [...] Anticipated Discharge Disposition: inpatient rehabilitation facility Pager: [phone] CRISTIAN NELSON, PT 07/26/2017 Physical Therapy Rehabilitation [...] to sit/sit to supine Bed Mobility Goal, [place] Level independent Goal: Gait Training Goal Stand Alone Therapy Goal Outcome: Ongoing (Interventions Implemented as Appropriate) 07/26/17 1329 Gait Training Goal Gait Training Goal, Date Established 07/26/17 Gait Training Goal, Time to Achieve 30 days Gait Training Goal, [place] Level supervision required Gait Training Goal, Assist [...] 30 days Transfer Training Goal, Activity Type xxp-ql-mztkn/uxxtg-ik-sal;sgj-rc-cldmw/jhjvo-gw-lrm Transfer Train Goal, [place] Level supervision required Transfer Training Goal, Assist [...] Afib (CHADS-VASc of 1) who presented to [facility] for radical neck dissection on 07/13/17. We [...] Date ??? ACHILLES TENDON SURGERY Right 1996 [facility] [place] ??? KNEE ARTHROSCOPY christelle. [facility] ??? PRO BIOPSY OROPHARYNX N/A 05/24/2017 BIOPSY, OROPHARYNX (WRVU 1.44) performed by Zafar Madera MD at [facility] OR ??? PRO LARYNGOSCOPY, DIRCT, OP SCOPE, BIOPSY N/A 05/24/2017 LARYNGOSCOPY, MICROSCOPE, WITH BIOPSY (WRVU 3.55) performed by Zafar Madera MD at [facility] OR ??? PRO LARYNGOSCOPY, DIRECT, DX, OP MICROSCOP N/A 07/16/2017 LARYNGOSCOPY, WITH MICROSCOPE (WRVU 2.57) performed by Sriram Contreras MD at [facility] OR ??? PRO PART EXC TONGUE, UNILAT RAD NECK Right 07/13/2017 @GLOSSECTOMY, PARTIAL,WITH UNILATERAL RADICAL NECK DISSECTION (WRVU 30.14) performed by Sriram Contreras MD at [facility] ??? PRO PARTIAL REMOVAL OF PHARYNX N/A 07/13/2017 PHARYNGECTOMY, LIMITED (WRVU 19.13) performed by Sriram Contreras MD at [facility] ??? PRO UNLISTED PROCEDURE LARYNX N/A 07/13/2017 LARYNGOSCOPY, MICRO, LASER EXCISION (WRVU 12.14) performed by Sriram Contreras MD at [facility] ??? QUADRACEPS TENDON REPAIR Right 04/2016 [facility] ??? TONSILLECTOMY FAMILY HISTORY No family history on file. No family history of VTE SOCIAL HISTORY Social History Social History ??? Marital status: Spouse name: Briana ??? Number of children: 4 ??? 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 He is to Briana for 40 yrs. 4 children - All live in different states - One Kathleen Enjoys raising Beef Cattle and doing Civil War and Living History and shoot Black powder/Antique firearms. He enjoys builiding Firearms/Blacksmithing - Charcoal, Cocoa, etc. PHYSICAL EXAMINATION Most Recent Vitals: 07/26/17 [...] and thrombosis clinic Felice Harvey MD Pager [phone] Heme-Onc Fellow ?? HEMATOLOGY STAFF ADDENDUM I [...] Deanna Menjivar MD Hematology Staff physician, Pager: [phone] 07/26/17 * Plan of Care - Sriram Thompson, [facility] - 07/26/2017 9:33 AM EDT Problem: Patient [...] all times. Sriram Thompson MS [facility] Speech-Language Pathologist Rehabilitation Medicine Pager - [phone] Problem: Acute Rehab Services Goal & Intervention [...] Bee was transferred from the [place] to [place] [...] per order. PLAN MOVING FORWARD: Transfer to [facility] INDIVIDUALIZED FALL PREVENTION INTERVENTIONS: Patient-specific fall [...] am. PLAN MOVING FORWARD: Extubate, transfer to [facility] when able INDIVIDUALIZED FALL PREVENTION INTERVENTIONS: [...] Outcome: Ongoing (Interventions Implemented as Appropriate) 07/15/17 5394 Skin Integrity Impairment, Risk/Actual Skin Integrity Impairment, [...] MOVING FORWARD: Extubate this am, transfer to [facility] when able INDIVIDUALIZED FALL PREVENTION INTERVENTIONS: [...] OUTCOME EVALUATION: * Plan of Care - Jackpot, Suzie A, RN - 07/18/2017 7:03 PM [...] RN or CONCEPCION Surveillance [continuous indirect monitoring]: [place] ICU monitor Patient-specific fall prevention interventions for [...] Contreras MD - 07/16/2017 12:27 PM EDT [facility] Operative Note Patient Name: Jose Bee : [id number] MR#: [id number] Case Date: 07/16/2017 Surgeon: Surgeon(s) and Role: [...] were protected with a mouth guard. A Iwlfrido laryngoscope was used to view the glottis [...] monitoring required during toileting and ADLs]: RN, MANUFACTURING PLANT TECHNICIAN and RT Surveillance [continuous indirect monitoring]: Monitor [...] Contreras MD - 07/15/2017 4:58 PM EDT [facility] Operative Note Patient Name: Jose Bee : [id number] MR#: [id number] Case Date: 07/13/2017 Surgeon: Surgeon(s) and Role: * Sriram Contreras MD - Primary * Selvin Kaye MD - Resident-Electronic Test Technician * Hilton Cheney PA - Physician Pouch Making Machine Operator Preoperative diagnosis: Right tongue base cancer Postoperative [...] completed, we then registered the patient using [employer] electromagnetic registration to the intraoperative imaging that [...] Vicryl suture. Once this was completed, two 15-Latvian Robin drains were placed in the neck, [...] Bee would be surrogate decision maker per [place] surrogate decision making law. Any patient receiving care at [facility] must abide by [place] law. The hierarchy for surrogate decision making [...] (i) The agent with financial power of securities attorney or a conservator appointed in accordance [...] MEDICARE A & B Secondary Insurance: [facility] Prescription Coverage: yes. Preferred Pharmacy: [facility] in [place], [place]. Other: none. Primary Care Provider: Jovon Sifuentes MD [phone] Patient/Caregiver Goals of Treatment: plan being determined at this time. Likely home health at [place]. Potential Needs for Transition of Care: Rehab/SNF: tbd. Home Health: tbd. DME: none previously required. Dialysis: N/A Community Resources: none. Transportation: spouse will provide. Other: none. Anticipated Barriers to Discharge/Special Considerations: no barriers identified at this time. Plan: a member of the Care Management team will continue to monitor progress, follow for continuityof care and assist with transition of care planning. Concrete Pump Operator Roc Valdez RN, BSN Pager #[phone] documented in this encounter Plan of Treatment Upcoming Encounters Date Type Department Care Team (Late st Contact Info) Description 01/30/2025 11:00 AM EDT Office Visit Hematology/Oncology at [address] [phone] Dmitry Bhatti MD [facility] [place] [address] Ellen Mcrae APRN [facility] [place] [address] 01/30/2025 11:30 AM EDT Infusion Hematology Oncology at [address] [phone] documented as of this encounter Procedures Procedure Name Priority Date/Time Associated Diagnosis Comments STOREHOUSE CLERK SCAN 07/30/2017 12:00 AM EDT HEMOGRAM Routine [...] EDT TYPE AND SCREEN, SDP (FUTURE SURGERY, [facility] SAME DAY PROGRAM ONLY) STAT 07/13/2017 6:27 AM EDT ABO/RH TYPING STAT 07/13/2017 6:27 AM EDT ANTIBODY SCREEN STAT 07/13/2017 6:27 AM EDT documented in this encounter Results * SCAN DOC: STOREHOUSE CLERK (07/30/2017 12:00 AM EDT) Anatomical Region Laterality Modality Other Narrative 07/30/2017 12:00 AM EDT Ordered by an unspecified provider. Scanning Provider MEDIA MGR SCAN EXT O RDR/RSLT * (ABNORMAL) Differential, Automated (07/29/2017 3:41 AM EDT) Neutrophil % 59.9 % [facility] Neutrophil Absolute 4.48 1.70 - 6.10 x10(3)/mc L [facility] Lymph % 26.0 % [facility] Lymphocytes Abs 2.0 0.9 - 3.2 x10(3)/mc L [facility] Monocyte % 10.0 % [facility] Monocyte Abs 0.8 0.3 - 0.9 x10(3)/mc L [facility] Eos % 2.1 % [facility] Eosinophils Abs 0.2 0.0 - 0.4 x10(3)/mc L [facility] Basophil % 0.7 % [facility] LABORATORY Baso Absolute 0.0 0.0 - 0.1 x10(3)/ L [facility] Immature Gran % 1.30 % [facility] Comment: Immature granulocytes(IG's)percentage and absolute count will include metamyelocytes, myelocytes, and promyelocytes. Blood smears from CBCs yielding IG's will be scanned manually for concordance. If this scan disagrees with the automated IG or if promyelocytes are noted, a manual differential will be performed. Immature Gran Absolute 0.10(H) 0.00 - 0.04 x10(3)/ L [facility] Blood specimen (specimen) 07/29/2017 3:41 AM EDT 07/29/2017 3:58 AM EDT Narrative Resulting Agency Comment Spec In Lab Sriram Contreras MD HEMATOLOGY ORDERAB LES Performing Organization Address City/State/[facility] Co de Phone Number [facility] [place] [address] * (ABNORMAL) Hemogram (07/29/2017 3:41 AM EDT) White Blood Cell 7.5 4.0 - 9.5 x10(3)/[facility] LABORATORY Red Blood Cell 4.14(L) 4.58 - 5.54 x10(6)/ L [facility] Hemoglobin 12.7(L) 13.7 - 16.5 gm/dL [facility] Hematocrit 38.1(L) 40.5 - 48.5 % [facility] Mean Cell Volume 92.0 82.9 - 93.1 fL [facility] Mean Cell Hemoglobin 30.7 27.5 - 32.1 pg [facility] Mean Cell Hemoglobin Concentration 33.3 32.0 - 35.7 gm/dL [facility] Platelet 281 145 - 357 x10(3)/ L [facility] RDW Standard Deviation 46.4(H) 36.0 - 45.0 fL [facility] RDW coefficient of variation 13.9(H) 11.4 - 13.8 % [facility] Mean Platelet Volume 9.9 7.6 - 12.9 fL [facility] NRBC% auto 0.0 % [facility] NRBC Absolute 0.000 0.000 - 0.000 x10(3)/mc L [facility] Blood specimen (specimen) 07/29/2017 3:41 AM EDT 07/29/2017 3:58 AM EDT Narrative Resulting Agency Comment Spec In Lab Sriram Contreras MD HEMATOLOGY ORDERAB LES [facility] [address] * Basic Metabolic Panel (non-fasting) (07/29/2017 3:41 AM EDT) Glucose 95 65 - 199 mg/dL [facility] Comment:Diabetes: >=200 mg/d L plus symptoms Blood Urea Nitrogen 16 10 - 20 mg/dL [facility] Creatinine 0.95 0.80 - 1.50 mg/dL [facility] Comment: Please note that the pediatric reference intervals supplied above were not validated at [facility] [place] [place]. Results from pediatric patients should be interpreted in conjunction to the patient's age, height and muscle mass. Sodium 139 135 - 145 mmol/L [facility] Potassium 3.9 3.5 - 5.0 mmol/L [facility] Comment: Please note: ??Patients with WBC >100,000 may have falsely elevated Potassium levels. ??For accurate Potassium quantification in these patients send serum separator tube (gold top) for subsequent determinations. ??Contact the Clinical Chemistry Laboratory if there are any questions. Chloride 102 98 - 107 mmol/L [facility] Carbon Dioxide 24 22 - 31 mmol/L [facility] Anion Gap 13 5 - 15 mmol/L [facility] Calcium 8.9 8.5 - 10.5 mg/dL [facility] Est Glomerular Filtration Rate >60 >=60 [facility] Comment: This estimated GFR [...] the following links into your internet browser. [email or web address] Blood specimen (specimen) 07/29/2017 3:41 AM EDT 07/29/2017 3:58 AM EDT Narrative Resulting Agency Comment Spec In Lab Sriram Contreras MD CHEMISTRY ORDERABL ES Performing Organization Address [facility] de Phone Number [facility] [place] [address] * POCT Glucose (07/28/2017 11:53 AM EDT) Glucose, POC 107 65 - 199 mg/dL [facility] Comment: Supplemental ranges: <140 mg/dL before meals <180 mg/dL all other times of the day Blood specimen (specimen) 07/28/2017 11:53 AM EDT 07/28/2017 11:53 AM EDT Sriram Contreras MD POINT OF CARE TEST ORDERABLES Performing Organization Address [facility] Co de Phone Number [facility] [address] * POCT Glucose (07/28/2017 7:52 AM EDT) Glucose, POC 97 65 - 199 mg/dL [facility] Comment: Supplemental ranges: <140 mg/dL before meals <180 mg/dL all other times of the day Blood specimen (specimen) 07/28/2017 7:52 AM EDT 07/28/2017 7:52 AM EDT Sriram Contreras MD POINT OF CARE TEST ORDERABLES Performing Organization Address [facility] Co de Phone Number [facility] [address] * POCT Glucose (07/28/2017 4:27 AM EDT) Glucose, POC 98 65 - 199 mg/dL [facility] Comment: Supplemental ranges: <140 mg/dL before meals <180 mg/dL all other times of the day Blood specimen (specimen) 07/28/2017 4:27 AM EDT 07/28/2017 4:27 AM EDT Sriram Contreras MD POINT OF CARE TEST ORDERABLES Performing Organization Address [facility] Co de Phone Number [facility] [place] [address] * Phosphorus (07/28/2017 3:47 AM EDT) Phosphorus 3.7 2.5 - 4.5 mg/dL [facility] Blood specimen (specimen) 07/28/2017 3:47 AM EDT 07/28/2017 6:16 AM EDT Narrative Resulting Agency Comment Spec In Lab Sriram Contreras MD CHEMISTRY ORDERABL ES Performing Organization Address [facility] Co de Phone Number [facility] [address] * Magnesium (07/28/2017 3:47 AM EDT) Magnesium 0.86 0.69 - 1.07 mmol/L [facility] Blood specimen (specimen) 07/28/2017 3:47 AM EDT 07/28/2017 6:16 AM EDT Narrative Resulting Agency Comment Spec In Lab Sriram Contreras MD CHEMISTRY ORDERABL ES Performing Organization Address [facility] Co [place] [address] * (ABNORMAL) Differential, Automated (07/28/2017 3:47 AM EDT) Pathologist [facility] Neutrophil % 62.2 % [facility] Neutrophil Absolute 4.94 1.70 - 6.10 x10(3)/ L [facility] Lymph % 22.1 % [facility] Lymphocytes Abs 1.8 0.9 - 3.2 x10(3)/[facility] LABORATORY Monocyte % 10.6 % [facility] Monocyte Abs 0.8 0.3 - 0.9 x10(3)/[facility] LABORATORY Eos % 2.1 % [facility] Eosinophils Abs 0.2 0.0 - 0.4 x10(3)/[facility] LABORATORY Basophil % 1.1 % [facility] Baso Absolute 0.1 0.0 - 0.1 x10(3)/[facility] LABORATORY Immature Gran % 1.90 % [facility] Comment: Immature granulocytes(IG's)percentage and absolute count will include metamyelocytes, myelocytes, and promyelocytes. Blood smears from CBCs yielding IG's will be scanned manually for concordance. If this scan disagrees with the automated IG or if promyelocytes are noted, a manual differential will be performed. Immature Gran Absolute 0.15(H) 0.00 - 0.04 x10(3)/ L [facility] Blood specimen (specimen) 07/28/2017 3:47 AM EDT 07/28/2017 3:58 AM EDT Narrative Resulting Agency Comment Spec In Lab Sriram Contreras MD HEMATOLOGY ORDERAB LES [facility] [address] * (ABNORMAL) Hemogram (07/28/2017 3:47 AM EDT) [facility] White Blood Cell 8.0 4.0 - 9.5 x10(3)/ L [facility] Red Blood Cell 4.43(L) 4.58 - 5.54 x10(6)/ L [facility] Hemoglobin 13.4(L) 13.7 - 16.5 gm/dL [facility] Hematocrit 40.3(L) 40.5 - 48.5 % [facility] Mean Cell Volume 91.0 82.9 - 93.1 fL [facility] Mean Cell Hemoglobin 30.2 27.5 - 32.1 pg [facility] Mean Cell Hemoglobin Concentration 33.3 32.0 - 35.7 gm/dL [facility] Platelet 271 145 - 357 x10(3)/[facility] LABORATORY RDW Standard Deviation 45.5(H) 36.0 - 45.0 fL [facility] RDW coefficient of variation 13.8 11.4 - 13.8 % [facility] Mean Platelet Volume 9.9 7.6 - 12.9 fL [facility] NRBC% auto 0.0 % [facility] NRBC Absolute 0.000 0.000 - 0.000 x10(3)/[facility] LABORATORY Blood specimen (specimen) 07/28/2017 3:47 AM EDT 07/28/2017 3:58 AM EDT Narrative Resulting Agency Comment Spec In Lab Sriram Contreras MD HEMATOLOGY ORDERAB LES [facility] [place] [address] * Basic Metabolic Panel (non-fasting) (07/28/2017 3:47 AM EDT) Glucose 110 65 - 199 mg/dL [facility] Comment:Diabetes: >=200 mg/d L plus symptoms Blood Urea Nitrogen 19 10 - 20 mg/dL [facility] Creatinine 0.96 0.80 - 1.50 mg/dL [facility] Comment: Please note that the pediatric reference intervals supplied above were not validated at [facility] [place] [place]. Results from pediatric patients should be interpreted in conjunction to the patient's age, height and muscle mass. Sodium 140 135 - 145 mmol/L [facility] Potassium 3.6 3.5 - 5.0 mmol/L [facility] Comment: Please note: ??Patients with WBC >100,000 may have falsely elevated Potassium levels. ??For accurate Potassium quantification in these patients send serum separator tube (gold top) for subsequent determinations. ??Contact the Clinical Chemistry Laboratory if there are any questions. Chloride 101 98 - 107 mmol/L [facility] Carbon Dioxide 24 22 - 31 mmol/L [facility] Anion Gap 15 5 - 15 mmol/L [facility] Calcium 8.9 8.5 - 10.5 mg/dL [facility] Est Glomerular Filtration Rate >60 >=60 [facility] Comment: This estimated GFR [...] the following links into your internet browser. [email or web address] Blood specimen (specimen) 07/28/2017 3:47 AM EDT 07/28/2017 3:58 AM EDT Narrative Resulting Agency Comment Spec In Lab Sriram Contreras MD CHEMISTRY ORDERABL ES [facility] [place] [address] * POCT Glucose (07/27/2017 11:52 PM EDT) Glucose, POC 94 65 - 199 mg/dL [facility] Comment: Supplemental ranges: <140 mg/dL before meals <180 mg/dL all other times of the day Blood specimen (specimen) 07/27/2017 11:52 PM EDT 07/27/2017 11:52 PM EDT Sriram Contreras MD POINT OF CARE TEST ORDERABLES [facility] [place] [address] * Heparin, low molecular weight assay (07/27/2017 8:19 PM EDT) Heparin [id number] 0.67 IU/mL [facility] Comment: Guidelines for therapeutic unfractionated [...] LES Performing Organization Address [facility] de Phone Number [facility] [place] [address] * POCT Glucose (07/27/2017 7:35 PM EDT) Glucose, POC 118 65 - 199 mg/dL [facility] Comment: Supplemental ranges: <140 mg/dL before meals <180 mg/dL all other times of the day Blood specimen (specimen) 07/27/2017 7:35 PM EDT 07/27/2017 7:35 PM EDT Sriram Contreras MD POINT OF CARE TEST ORDERABLES Performing Organization Address [facility] de Phone Number [facility] [place] [address] * POCT Glucose (07/27/2017 3:28 PM EDT) Glucose, POC 104 65 - 199 mg/dL [facility] Comment: Supplemental ranges: <140 mg/dL before meals <180 mg/dL all other times of the day Blood specimen (specimen) 07/27/2017 3:28 PM EDT 07/27/2017 3:28 PM EDT Sriram Contreras MD POINT OF CARE TEST ORDERABLES Performing Organization Address [facility] Co de Phone Number [facility] [address] * POCT Glucose (07/27/2017 11:06 AM EDT) Glucose, POC 147 65 - 199 mg/dL [facility] Comment: Supplemental ranges: <140 mg/dL before meals <180 mg/dL all other times of the day Blood specimen (specimen) 07/27/2017 11:06 AM EDT 07/27/2017 11:06 AM EDT Sriram Contreras MD POINT OF CARE TEST ORDERABLES Performing Organization Address City/State/[facility] Co de Phone Number [facility] [address] * POCT Glucose (07/27/2017 7:25 AM EDT) [facility] Signature Glucose, POC 105 65 - 199 mg/dL [facility] Comment: Supplemental ranges: <140 mg/dL before meals <180 mg/dL all other times of the day Blood specimen (specimen) 07/27/2017 7:25 AM EDT 07/27/2017 7:25 AM EDT Sriram Contreras MD POINT OF CARE TEST ORDERABLES Performing Organization Address City/[facility] Co de Phone Number [facility] [place] [address] * Duplex Study for DVT, Bilat legs (07/27/2017 6:59 AM EDT) VB Text Report Department: Vascular Surgery Lab Patient: [id number] (SUGARTOWNJOSE) CPT: 38180 ICD10: I26.99 Referring Physician: SRIRAM CONTRERAS ?? [...] MD VASCULAR ORDERABLE S Performing Organization Address City/[facility] Co de Phone Number [employer] * POCT Glucose (07/27/2017 3:52 AM EDT) Glucose, POC 106 65 - 199 mg/dL [facility] Comment: Supplemental ranges: <140 mg/dL before meals <180 mg/dL all other times of the day Blood specimen (specimen) 07/27/2017 3:52 AM EDT 07/27/2017 3:52 AM EDT Sriram Contreras MD POINT OF CARE TEST ORDERABLES Performing Organization Address City/[facility]/ZIP Co de Phone Number [facility] [address] * (ABNORMAL) APTT (07/27/2017 2:45 AM EDT) Partial Thromboplastin Time 92(H) 25 - 35 sec [facility] Comment: The recommended therapeutic range for full dose, unfractionated heparin at [facility] [place] [place] is 80 ? 114 seconds. The use of the anti-Xa (heparin) level rather than the PTT is recommended for monitoring anticoagulation intensity in critically ill patients receiving unfractionated heparin by continuous IV infusion. Blood specimen (specimen) 07/27/2017 2:45 AM EDT 07/27/2017 2:55 AM EDT Narrative Resulting Agency Comment Spec In Lab Sriram Contreras MD HEMATOLOGY ORDERAB LES [facility] [place] [address] * (ABNORMAL) Differential, Automated (07/27/2017 2:45 AM EDT) Neutrophil % 67.8 % [facility] Neutrophil Absolute 8.40(H) 1.70 - 6.10 x10(3)/mc L [facility] Lymph % 17.4 % [facility] Lymphocytes Abs 2.2 0.9 - 3.2 x10(3)/ L [facility] Monocyte % 9.5 % [facility] Monocyte Abs 1.2(H) 0.3 - 0.9 x10(3)/mc L [facility] Eos % 1.4 % [facility] Eosinophils Abs 0.2 0.0 - 0.4 x10(3)/ L [facility] Basophil % 0.9 % [facility] Baso Absolute 0.1 0.0 - 0.1 x10(3)/mc L [facility] Immature Gran % 3.00 % [facility] Comment: Immature granulocytes(IG's)percentage and absolute count will include metamyelocytes, myelocytes, and promyelocytes. Blood smears from CBCs yielding IG's will be scanned manually for concordance. If this scan disagrees with the automated IG or if promyelocytes are noted, a manual differential will be performed. Immature Gran Absolute 0.37(H) 0.00 - 0.04 x10(3)/mc L [facility] Blood specimen (specimen) 07/27/2017 2:45 AM EDT 07/27/2017 2:55 AM EDT Narrative Resulting Agency Comment Spec In Lab Sriram Contreras MD HEMATOLOGY ORDERAB LES Performing Organization Address City/[facility]/ZIP Co de Phone Number [facility] [address] * (ABNORMAL) Hemogram (07/27/2017 2:45 AM EDT) White Blood Cell 12.4(H) 4.0 - 9.5 x10(3)/mc L [facility] Red Blood Cell 4.66 4.58 - 5.54 x10(6)/mc L [facility] Hemoglobin 14.3 13.7 - 16.5 gm/dL [facility] Hematocrit 42.0 40.5 - 48.5 % [facility] Mean Cell Volume 90.1 82.9 - 93.1 fL [facility] Mean Cell Hemoglobin 30.7 27.5 - 32.1 pg [facility] Mean Cell Hemoglobin Concentration 34.0 32.0 - 35.7 gm/dL [facility] Platelet 288 145 - 357 x10(3)/mc L [facility] RDW Standard Deviation 45.5(H) 36.0 - 45.0 fL [facility] RDW coefficient of variation 14.0(H) 11.4 - 13.8 % [facility] Mean Platelet Volume 9.7 7.6 - 12.9 fL [facility] NRBC% auto 0.0 % [facility] NRBC Absolute 0.000 0.000 - 0.000 x10(3)/mc L [facility] Blood specimen (specimen) 07/27/2017 2:45 AM EDT 07/27/2017 2:55 AM EDT Narrative Resulting Agency Comment Spec In Lab Sriram Contreras MD HEMATOLOGY ORDERAB LES [facility] [place] [address] * (ABNORMAL) Basic Metabolic Panel (non-fasting) (07/27/2017 2:45 AM EDT) Glucose 169 65 - 199 mg/dL [facility] Comment:Diabetes: >=200 mg/d L plus symptoms Blood Urea Nitrogen 22(H) 10 - 20 mg/dL [facility] Creatinine 0.92 0.80 - 1.50 mg/dL [facility] Comment: Please note that the pediatric reference intervals supplied above were not validated at [facility] [place] [place]. Results from pediatric patients should be interpreted in conjunction to the patient's age, height and muscle mass. Sodium 139 135 - 145 mmol/L [facility] Potassium 3.7 3.5 - 5.0 mmol/L [facility] Comment: Please note: ??Patients with WBC >100,000 may have falsely elevated Potassium levels. ??For accurate Potassium quantification in these patients send serum separator tube (gold top) for subsequent determinations. ??Contact the Clinical Chemistry Laboratory if there are any questions. Chloride 100 98 - 107 mmol/L [facility] Carbon Dioxide 23 22 - 31 mmol/L [facility] Anion Gap 16(H) 5 - 15 mmol/L [facility] Calcium 9.4 8.5 - 10.5 mg/dL [facility] Est Glomerular Filtration Rate >60 >=60 [facility] Comment: This estimated GFR [...] the following links into your internet browser. [email or web address] Blood specimen (specimen) 07/27/2017 2:45 AM EDT 07/27/2017 2:55 AM EDT Narrative Resulting Agency Comment Spec In Lab Sriram Contreras MD CHEMISTRY ORDERABL ES Performing Organization Address [facility] Co de Phone Number [facility] [address] * Phosphorus (07/27/2017 2:45 AM EDT) Phosphorus 4.3 2.5 - 4.5 mg/dL [facility] Blood specimen (specimen) 07/27/2017 2:45 AM EDT 07/27/2017 2:55 AM EDT Narrative Resulting Agency Comment Spec In Lab Sriram Contreras MD CHEMISTRY ORDERABL ES Performing Organization Address [facility] Co de Phone Number [facility] [address] * Magnesium (07/27/2017 2:45 AM EDT) Magnesium 0.79 0.69 - 1.07 mmol/L [facility] Blood specimen (specimen) 07/27/2017 2:45 AM EDT 07/27/2017 2:55 AM EDT Narrative Resulting Agency Comment Spec In Lab Sriram Contreras MD CHEMISTRY ORDERABL ES Performing Organization Address [facility] Co de Phone Number [facility] [address] * POCT Glucose (07/27/2017 12:02 AM EDT) Glucose, POC 112 65 - 199 mg/dL [facility] Comment: Supplemental ranges: <140 mg/dL before meals <180 mg/dL all other times of the day Blood specimen (specimen) 07/27/2017 12:02 AM EDT 07/27/2017 12:02 AM EDT Sriram Contreras MD POINT OF CARE TEST ORDERABLES Performing Organization Address [facility] Co de Phone Number [facility] [address] * (ABNORMAL) APTT (07/26/2017 9:29 PM EDT) Partial Thromboplastin Time 90(H) 25 - 35 sec [facility] Comment: The recommended therapeutic range for full dose, unfractionated heparin at [facility] [place] [place] is 80 ? 114 seconds. The use of the anti-Xa (heparin) level rather than the PTT is recommended for monitoring anticoagulation intensity in critically ill patients receiving unfractionated heparin by continuous IV infusion. Blood specimen (specimen) 07/26/2017 9:29 PM EDT 07/26/2017 9:32 PM EDT Narrative Resulting Agency Comment Spec In Lab Sriram Contreras MD HEMATOLOGY ORDERAB LES Performing Organization Address City/[facility]/ZIP Co de Phone Number [facility] [place] [address] * POCT Glucose (07/26/2017 8:14 PM EDT) Glucose, POC 116 65 - 199 mg/dL [facility] Comment: Supplemental ranges: <140 mg/dL before meals <180 mg/dL all other times of the day Blood specimen (specimen) 07/26/2017 8:14 PM EDT 07/26/2017 8:14 PM EDT Sriram Contreras MD POINT OF CARE TEST ORDERABLES Performing Organization Address City/[facility]/ZIP Co de Phone Number [facility] [place] [address] * POCT Glucose (07/26/2017 3:20 PM EDT) Glucose, POC 125 65 - 199 mg/dL [facility] Comment: Supplemental ranges: <140 mg/dL before meals <180 mg/dL all other times of the day Blood specimen (specimen) 07/26/2017 3:20 PM EDT 07/26/2017 3:20 PM EDT Sriram Contreras MD POINT OF CARE TEST ORDERABLES Performing Organization Address [facility] Co de Phone Number [facility] [place] [address] * (ABNORMAL) APTT (07/26/2017 1:51 PM EDT) Partial Thromboplastin Time 88(H) 25 - 35 sec [facility] Comment: The recommended therapeutic range for full dose, unfractionated heparin at [facility] [place] [place] is 80 ? 114 seconds. The use of the anti-Xa (heparin) level rather than the PTT is recommended for monitoring anticoagulation intensity in critically ill patients receiving unfractionated heparin by continuous IV infusion. Blood specimen (specimen) 07/26/2017 1:51 PM EDT 07/26/2017 1:55 PM EDT Narrative Resulting Agency Comment Spec In Lab Sriram Contreras MD HEMATOLOGY ORDERAB LES Performing Organization Address [facility] de Phone Number [facility] [place] [address] * POCT Glucose (07/26/2017 11:12 AM EDT) Glucose, POC 120 65 - 199 mg/dL [facility] Comment: Supplemental ranges: <140 mg/dL before meals <180 mg/dL all other times of the day Blood specimen (specimen) 07/26/2017 11:12 AM EDT 07/26/2017 11:12 AM EDT Sriram Contreras MD POINT OF CARE TEST ORDERABLES Performing Organization Address [facility] Co de Phone Number [facility] [place] [address] * POCT Glucose (07/26/2017 7:35 AM EDT) Glucose, POC 115 65 - 199 mg/dL [facility] Comment: Supplemental ranges: <140 mg/dL before meals <180 mg/dL all other times of the day Blood specimen (specimen) 07/26/2017 7:35 AM EDT 07/26/2017 7:35 AM EDT Sriram Contreras MD POINT OF CARE TEST ORDERABLES Performing Organization Address [facility] Co de Phone Number [facility] [place] [address] * (ABNORMAL) APTT (07/26/2017 3:30 AM EDT) [facility] Partial Thromboplastin Time 60(H) 25 - 35 sec [facility] Comment: The recommended therapeutic range for full dose, unfractionated heparin at [facility] [place] [place] is 80 ? 114 seconds. The use of the anti-Xa (heparin) level rather than the PTT is recommended for monitoring anticoagulation intensity in critically ill patients receiving unfractionated heparin by continuous IV infusion. Blood specimen (specimen) 07/26/2017 3:30 AM EDT 07/26/2017 4:11 AM EDT Narrative Resulting Agency Comment Spec In Lab Sriram Contreras MD HEMATOLOGY ORDERAB LES Performing Organization Address [facility] Co de Phone Number [facility] [place] [address] * (ABNORMAL) Differential, Automated (07/26/2017 3:30 AM EDT) [facility] Neutrophil % 68.7 % [facility] Neutrophil Absolute 8.50(H) 1.70 - 6.10 x10(3)/mc L [facility] Lymph % 14.3 % [facility] Lymphocytes Abs 1.8 0.9 - 3.2 x10(3)/mc L [facility] Monocyte % 9.6 % [facility] Monocyte Abs 1.2(H) 0.3 - 0.9 x10(3)/mc L [facility] Eos % 1.3 % [facility] Eosinophils Abs 0.2 0.0 - 0.4 x10(3)/mc L [facility] Basophil % 1.4 % [facility] Baso Absolute 0.2(H) 0.0 - 0.1 x10(3)/mc L [facility] Immature Gran % 4.70 % [facility] Comment: Immature granulocytes(IG's)percentage and absolute count will include metamyelocytes, myelocytes, and promyelocytes. Blood smears from CBCs yielding IG's will be scanned manually for concordance. If this scan disagrees with the automated IG or if promyelocytes are noted, a manual differential will be performed. Immature Gran Absolute 0.58(H) 0.00 - 0.04 x10(3)/mc L [facility] Blood specimen (specimen) 07/26/2017 3:30 AM EDT 07/26/2017 4:11 AM EDT Narrative Resulting Agency Comment Spec In Lab Sriram Contreras MD HEMATOLOGY ORDERAB LES Performing Organization Address City/State/[facility] Co de Phone Number [facility] [place] [address] * (ABNORMAL) Hemogram (07/26/2017 3:30 AM EDT) White Blood Cell 12.4(H) 4.0 - 9.5 x10(3)/ L [facility] Red Blood Cell 4.87 4.58 - 5.54 x10(6)/ L [facility] Hemoglobin 15.2 13.7 - 16.5 gm/dL [facility] Hematocrit 44.1 40.5 - 48.5 % [facility] Mean Cell Volume 90.6 82.9 - 93.1 fL [facility] Mean Cell Hemoglobin 31.2 27.5 - 32.1 pg [facility] Mean Cell Hemoglobin Concentration 34.5 32.0 - 35.7 gm/dL [facility] Platelet 253 145 - 357 x10(3)/mc L [facility] RDW Standard Deviation 44.8 36.0 - 45.0 fL [facility] RDW coefficient of variation 13.6 11.4 - 13.8 % [facility] Mean Platelet Volume 10.4 7.6 - 12.9 fL [facility] NRBC% auto 0.2 % [facility] NRBC Absolute 0.020(H) 0.000 - 0.000 x10(3)/mc L [facility] Blood specimen (specimen) 07/26/2017 3:30 AM EDT 07/26/2017 4:11 AM EDT Narrative Resulting Agency Comment Spec In Lab Sriram Contreras MD HEMATOLOGY ORDERAB LES [facility] [place] [address] * Basic Metabolic Panel (non-fasting) (07/26/2017 3:30 AM EDT) Glucose 123 65 - 199 mg/dL [facility] Comment:Diabetes: >=200 mg/d L plus symptoms Blood Urea Nitrogen 18 10 - 20 mg/dL [facility] Creatinine 0.85 0.80 - 1.50 mg/dL [facility] Comment: Please note that the pediatric reference intervals supplied above were not validated at [facility] [place] [place]. Results from pediatric patients should be interpreted in conjunction to the patient's age, height and muscle mass. Sodium 141 135 - 145 mmol/L [facility] Potassium 3.8 3.5 - 5.0 mmol/L [facility] Comment: Please note: ??Patients with WBC >100,000 may have falsely elevated Potassium levels. ??For accurate Potassium quantification in these patients send serum separator tube (gold top) for subsequent determinations. ??Contact the Clinical Chemistry Laboratory if there are any questions. Chloride 102 98 - 107 mmol/L [facility] Carbon Dioxide 25 22 - 31 mmol/L [facility] Anion Gap 14 5 - 15 mmol/L [facility] Calcium 9.2 8.5 - 10.5 mg/dL [facility] Est Glomerular Filtration Rate >60 >=60 [facility] Comment: This estimated GFR [...] the following links into your internet browser. [email or web address] Blood specimen (specimen) 07/26/2017 3:30 AM EDT 07/26/2017 4:11 AM EDT Narrative Resulting Agency Comment Spec In Lab Sriram Contreras MD CHEMISTRY ORDERABL ES Performing Organization Address [facility] Phone Number [facility] [place] [address] * Prealbumin (07/26/2017 3:30 AM EDT) Prealbumin 26 20 - 40 mg/dL [facility] Comment: Prealbumin levels are generally lower in the pediatric population; adult concentrations are usually attained near puberty. Blood specimen (specimen) 07/26/2017 3:30 AM EDT 07/26/2017 4:11 AM EDT Narrative Resulting Agency Comment Spec In Lab Sriram Contreras MD CHEMISTRY ORDERABL ES Performing Organization Address [facility] de Phone Number [facility] [place] [address] * POCT Glucose (07/26/2017 3:27 AM EDT) Glucose, POC 116 65 - 199 mg/dL [facility] Comment: Supplemental ranges: <140 mg/dL before meals <180 mg/dL all other times of the day Blood specimen (specimen) 07/26/2017 3:27 AM EDT 07/26/2017 3:27 AM EDT Sriram Contreras MD POINT OF CARE TEST ORDERABLES Performing Organization Address [facility] Co de Phone Number [facility] [place] [address] * POCT Glucose (07/25/2017 7:50 PM EDT) Glucose, POC 109 65 - 199 mg/dL [facility] Comment: Supplemental ranges: <140 mg/dL before meals <180 mg/dL all other times of the day Blood specimen (specimen) 07/25/2017 7:50 PM EDT 07/25/2017 7:50 PM EDT Sriram Contreras MD POINT OF CARE TEST ORDERABLES Performing Organization Address [facility] de Phone Number [facility] [place] [address] * (ABNORMAL) APTT (07/25/2017 5:51 PM EDT) [facility] Signature Partial Thromboplastin Time 112(H) 25 - 35 sec [facility] Comment: The recommended therapeutic range for full dose, unfractionated heparin at [facility] [place] [place] is 80 ? 114 seconds. The use of the anti-Xa (heparin) level rather than the PTT is recommended for monitoring anticoagulation intensity in critically ill patients receiving unfractionated heparin by continuous IV infusion. Blood specimen (specimen) 07/25/2017 5:51 PM EDT 07/25/2017 5:55 PM EDT Narrative Resulting Agency Comment Spec In Lab Sriram Contreras MD HEMATOLOGY ORDERAB LES Performing Organization Address [facility] Co de Phone Number [facility] [place] [address] * POCT Glucose (07/25/2017 4:01 PM EDT) Glucose, POC 109 65 - 199 mg/dL [facility] Comment: Supplemental ranges: <140 mg/dL before meals <180 mg/dL all other times of the day Blood specimen (specimen) 07/25/2017 4:01 PM EDT 07/25/2017 4:01 PM EDT Sriram Contreras MD POINT OF CARE TEST ORDERABLES Performing Organization Address [facility] de Phone Number [facility] [place] [address] * POCT Glucose (07/25/2017 12:10 PM EDT) Glucose, POC 117 65 - 199 mg/dL [facility] Comment: Supplemental ranges: <140 mg/dL before meals <180 mg/dL all other times of the day Blood specimen (specimen) 07/25/2017 12:10 PM EDT 07/25/2017 12:10 PM EDT Sriram Contreras MD POINT OF CARE TEST ORDERABLES Performing Organization Address [facility] Phone Number [facility] [place] [address] * Potassium (07/25/2017 11:00 AM EDT) Potassium 3.9 3.5 - 5.0 mmol/L [facility] Comment: Please note: ??Patients with [...] MD CHEMISTRY ORDERABL ES Performing Organization Address [facility] de Phone Number [facility] [place] [address] * (ABNORMAL) APTT (07/25/2017 11:00 AM EDT) Partial Thromboplastin Time 102(H) 25 - 35 sec [facility] Comment: The recommended therapeutic range for full dose, unfractionated heparin at [facility] [place] [place] is 80 ? 114 seconds. The use of the anti-Xa (heparin) level rather than the PTT is recommended for monitoring anticoagulation intensity in critically ill patients receiving unfractionated heparin by continuous IV infusion. Blood specimen (specimen) 07/25/2017 11:00 AM EDT 07/25/2017 11:05 AM EDT Narrative Resulting Agency Comment Spec In Lab Sriram Contreras MD HEMATOLOGY ORDERAB LES Performing Organization Address [facility] Co de Phone Number [facility] [place] [address] * POCT Glucose (07/25/2017 8:27 AM EDT) [facility] Glucose, POC 124 65 - 199 mg/dL [facility] Comment: Supplemental ranges: <140 mg/dL before meals <180 mg/dL all other times of the day Blood specimen (specimen) 07/25/2017 8:27 AM EDT 07/25/2017 8:27 AM EDT Sriram Contreras MD POINT OF CARE TEST ORDERABLES Performing Organization Address [facility] de Phone Number [facility] [place] [address] * (ABNORMAL) BLOOD GAS 2 ARTERIAL (07/25/2017 6:19 AM EDT) [facility] Signature pH, Arterial 7.51(H) 7.35 - 7.45 [facility] PCO2, Arterial 29(L) 35 - 45 mmHg [facility] PO2, Arterial 59(L) 85 - 104 mmHg [facility] Bicarbonate, Arterial 22.2 20.0 - 26.0 mmol/L [facility] Base Excess, Arterial -0.9 -3.0 - 3.0 mmol/L [facility] Hgb Blood Gas 14.6 13.7 - 16.5 gm/dL [facility] Oxyhemoglobin, Arterial 91.1(L) 94.0 - 97.0 % [facility] Carboxyhemoglob in, Arterial 0.3 % [facility] Comment: Nonsmokers: 0.5-1.5% COHB Smokers: Variable, but usually less than 10% Toxic: 20-30% COHB Lethal: Greater than 60% COHB Methemoglobin, Arterial 0.6 <=1.5 % [facility] Na Whole Blood 141 135 - 145 mmol/L [facility] K Whole Blood 3.8 3.5 - 5.0 mmol/L [facility] Comment: Please note: Patients with WBC >100,000 may have falsely elevated Potassium levels. Contact the Clinical Chemistry Laboratory if there are any questions. ICa Whole Blood 1.17 1.15 - 1.33 mmol/L [facility] Comment: Note: ??Total bilirubin higher than 20 mg/dL may lead to falsely low ionized calcium. CL Whole Blood 108(H) 98 - 107 mmol/L [facility] Gluc Whole Bld 136 65 - 199 mg/dL [facility] Comment:Diabetes: >=200 mg/d L plus symptoms. Lactate WB 1.5 0.5 - 2.2 mmol/L [facility] Blood specimen (specimen) 07/25/2017 6:19 AM EDT 07/25/2017 6:19 AM EDT Sriram Contreras MD POINT OF CARE TEST ORDERABLES Performing Organization Address City/State/[facility] Co de Phone Number [facility] [place] [address] * POCT Glucose (07/25/2017 4:41 AM EDT) Glucose, POC 101 65 - 199 mg/dL [facility] Comment: Supplemental ranges: <140 mg/dL before meals <180 mg/dL all other times of the day Blood specimen (specimen) 07/25/2017 4:41 AM EDT 07/25/2017 4:41 AM EDT Sriram Contreras MD POINT OF CARE TEST ORDERABLES [facility] [place] [address] * Magnesium (07/25/2017 4:37 AM EDT) [facility] Magnesium 0.83 0.69 - 1.07 mmol/L [facility] Blood specimen (specimen) Venous Draw / Unknown 07/25/2017 4:37 AM EDT 07/25/2017 4:50 AM EDT Narrative Resulting Agency Comment Spec In Lab Sriram Contreras MD CHEMISTRY ORDERABL ES Performing Organization Address [facility] Co de Phone Number [facility] [place] [address] * (ABNORMAL) Differential, Automated (07/25/2017 4:37 AM EDT) [facility] Neutrophil % 68.4 % [facility] Neutrophil Absolute 8.77(H) 1.70 - 6.10 x10(3)/mc L [facility] Lymph % 15.0 % [facility] Lymphocytes Abs 1.9 0.9 - 3.2 x10(3)/mc L [facility] Monocyte % 8.9 % [facility] Monocyte Abs 1.1(H) 0.3 - 0.9 x10(3)/mc L [facility] Eos % 1.9 % [facility] Eosinophils Abs 0.2 0.0 - 0.4 x10(3)/mc L [facility] Basophil % 1.0 % [facility] Baso Absolute 0.1 0.0 - 0.1 x10(3)/mc L [facility] Immature Gran % 4.80 % [facility] Comment: Immature granulocytes(IG's)percentage and absolute count will include metamyelocytes, myelocytes, and promyelocytes. Blood smears from CBCs yielding IG's will be scanned manually for concordance. If this scan disagrees with the automated IG or if promyelocytes are noted, a manual differential will be performed. Immature Gran Absolute 0.62(H) 0.00 - 0.04 x10(3)/mc L [facility] Blood specimen (specimen) 07/25/2017 4:37 AM EDT 07/25/2017 4:48 AM EDT Narrative Resulting Agency Comment Spec In Lab Sriram Contreras MD HEMATOLOGY ORDERAB LES [facility] [place] [address] * (ABNORMAL) Hemogram (07/25/2017 4:37 AM EDT) White Blood Cell 12.8(H) 4.0 - 9.5 x10(3)/mc L [facility] Red Blood Cell 4.53(L) 4.58 - 5.54 x10(6)/mc L [facility] Hemoglobin 14.0 13.7 - 16.5 gm/dL [facility] Hematocrit 40.3(L) 40.5 - 48.5 % [facility] Mean Cell Volume 89.0 82.9 - 93.1 fL [facility] Mean Cell Hemoglobin 30.9 27.5 - 32.1 pg [facility] Mean Cell Hemoglobin Concentration 34.7 32.0 - 35.7 gm/dL [facility] Platelet 241 145 - 357 x10(3)/mc L [facility] RDW Standard Deviation 43.1 36.0 - 45.0 [facility] RDW coefficient of variation 13.2 11.4 - 13.8 % [facility] Mean Platelet Volume 9.9 7.6 - 12.9 fL [facility] NRBC% auto 0.0 % [facility] NRBC Absolute 0.000 0.000 - 0.000 x10(3)/mc L [facility] Blood specimen (specimen) 07/25/2017 4:37 AM EDT 07/25/2017 4:48 AM EDT Narrative Resulting Agency Comment Spec In Lab Sriram Contreras MD HEMATOLOGY ORDERAB LES [facility] [place] [address] * Basic Metabolic Panel (non-fasting) (07/25/2017 4:37 AM EDT) Glucose 120 65 - 199 mg/dL [facility] Comment:Diabetes: >=200 mg/d L plus symptoms Blood Urea Nitrogen 14 10 - 20 mg/dL [facility] Creatinine 0.81 0.80 - 1.50 mg/dL [facility] Comment: Please note that the pediatric reference intervals supplied above were not validated at [facility] [place] [place]. Results from pediatric patients should be interpreted in conjunction to the patient's age, height and muscle mass. Sodium 140 135 - 145 mmol/L [facility] Potassium 3.6 3.5 - 5.0 mmol/L [facility] Comment: Please note: ??Patients with WBC >100,000 may have falsely elevated Potassium levels. ??For accurate Potassium quantification in these patients send serum separator tube (gold top) for subsequent determinations. ??Contact the Clinical Chemistry Laboratory if there are any questions. Chloride 103 98 - 107 mmol/L [facility] Carbon Dioxide 24 22 - 31 mmol/L [facility] Anion Gap 13 5 - 15 mmol/L [facility] Calcium 8.8 8.5 - 10.5 mg/dL [facility] Est Glomerular Filtration Rate >60 >=60 [facility] Comment: This estimated GFR [...] the following links into your internet browser. [email or web address] Blood specimen (specimen) 07/25/2017 4:37 AM EDT 07/25/2017 4:48 AM EDT Narrative Resulting Agency Comment Spec In Lab Sriram Contreras MD CHEMISTRY ORDERABL ES Performing Organization Address [facility] Phone Number [facility] [place] [address] * (ABNORMAL) APTT (07/25/2017 4:37 AM EDT) [facility] Partial Thromboplastin Time 122(H) 25 - 35 sec [facility] Comment: The recommended therapeutic range for full dose, unfractionated heparin at [facility] [place] [place] is 80 ? 114 seconds. The use of the anti-Xa (heparin) level rather than the PTT is recommended for monitoring anticoagulation intensity in critically ill patients receiving unfractionated heparin by continuous IV infusion. Blood specimen (specimen) 07/25/2017 4:37 AM EDT 07/25/2017 4:48 AM EDT Narrative Resulting Agency Comment Spec In Lab Sriram Contreras MD HEMATOLOGY ORDERAB LES Performing Organization Address [facility] Phone Number [facility] [place] [address] * POCT Glucose (07/25/2017 12:10 AM EDT) Glucose, POC 108 65 - 199 mg/dL [facility] Comment: Supplemental ranges: <140 mg/dL before meals <180 mg/dL all other times of the day Blood specimen (specimen) 07/25/2017 12:10 AM EDT 07/25/2017 12:10 AM EDT Sriram Contreras MD POINT OF CARE TEST ORDERABLES Performing Organization Address [facility] Phone Number [facility] [address] * POCT Glucose (07/24/2017 8:05 PM EDT) Glucose, POC 112 65 - 199 mg/dL [facility] Comment: Supplemental ranges: <140 mg/dL before meals <180 mg/dL all other times of the day Blood specimen (specimen) 07/24/2017 8:05 PM EDT 07/24/2017 8:05 PM EDT Sriram Contreras MD POINT OF CARE TEST ORDERABLES [facility] [place] [address] * POCT Glucose (07/24/2017 8:04 PM EDT) Glucose, POC 106 65 - 199 mg/dL [facility] Comment: Supplemental ranges: <140 mg/dL before meals <180 mg/dL all other times of the day Blood specimen (specimen) 07/24/2017 8:04 PM EDT 07/24/2017 8:04 PM EDT Sriram Contreras MD POINT OF CARE TEST ORDERABLES [facility] [place] [address] * POCT Glucose (07/24/2017 3:42 PM EDT) Glucose, POC 108 65 - 199 mg/dL [facility] Comment: Supplemental ranges: <140 mg/dL before meals <180 mg/dL all other times of the day Blood specimen (specimen) 07/24/2017 3:42 PM EDT 07/24/2017 3:42 PM EDT Sriram Contreras MD POINT OF CARE TEST ORDERABLES [facility] [place] [address] * POCT Glucose (07/24/2017 11:42 AM EDT) Glucose, POC 102 65 - 199 mg/dL [facility] Comment: Supplemental ranges: <140 mg/dL before meals <180 mg/dL all other times of the day Blood specimen (specimen) 07/24/2017 11:42 AM EDT 07/24/2017 11:42 AM EDT Sriram Contreras MD POINT OF CARE TEST ORDERABLES Performing Organization Address [facility] Co de Phone Number [facility] [place] [address] * POCT Glucose (07/24/2017 8:00 AM EDT) Glucose, POC 107 65 - 199 mg/dL [facility] Comment: Supplemental ranges: <140 mg/dL before meals <180 mg/dL all other times of the day Blood specimen (specimen) 07/24/2017 8:00 AM EDT 07/24/2017 8:00 AM EDT Sriram Contreras MD POINT OF CARE TEST ORDERABLES Performing Organization Address [facility] Co de Phone Number [facility] [place] [address] * (ABNORMAL) BLOOD GAS 2 ARTERIAL (07/24/2017 7:28 AM EDT) pH, Arterial 7.44 7.35 - 7.45 [facility] PCO2, Arterial 39 35 - 45 mmHg [facility] PO2, Arterial 67(L) 85 - 104 mmHg [facility] Bicarbonate, Arterial 25.5 20.0 - 26.0 mmol/L [facility] Base Excess, Arterial 1.2 -3.0 - 3.0 mmol/L [facility] Hgb Blood Gas 13.8 13.7 - 16.5 gm/dL [facility] Oxyhemoglobin, Arterial 92.8(L) 94.0 - 97.0 % [facility] Carboxyhemoglob in, Arterial 0.3 % [facility] Comment: Nonsmokers: 0.5-1.5% COHB Smokers: Variable, but usually less than 10% Toxic: 20-30% COHB Lethal: Greater than 60% COHB Methemoglobin, Arterial 0.6 <=1.5 % [facility] Na Whole Blood 139 135 - 145 mmol/L [facility] K Whole Blood 4.0 3.5 - 5.0 mmol/L [facility] Comment: Please note: Patients with WBC >100,000 may have falsely elevated Potassium levels. Contact the Clinical Chemistry Laboratory if there are any questions. ICa Whole Blood 1.21 1.15 - 1.33 mmol/L [facility] Comment: Note: ??Total bilirubin higher than 20 mg/dL may lead to falsely low ionized calcium. CL Whole Blood 105 98 - 107 mmol/L [facility] Gluc Whole Bld 123 65 - 199 mg/dL [facility] Comment:Diabetes: >=200 mg/d L plus symptoms. Lactate WB 1.7 0.5 - 2.2 mmol/L [facility] FIO2 Art 30 % [facility] PF Ratio Art 223 [facility] Blood specimen (specimen) 07/24/2017 7:28 AM EDT 07/24/2017 7:28 AM EDT Sriram Contreras MD POINT OF CARE TEST ORDERABLES [facility] [place] [address] * Potassium (07/24/2017 7:28 AM EDT) Potassium 4.1 3.5 - 5.0 mmol/L [facility] Comment: Please note: ??Patients with [...] MD CHEMISTRY ORDERABL ES Performing Organization Address [facility] Co de Phone Number [facility] [place] [address] * POCT Glucose (07/24/2017 3:42 AM EDT) [facility] Glucose, POC 91 65 - 199 mg/dL [facility] Comment: Supplemental ranges: <140 mg/dL before meals <180 mg/dL all other times of the day Blood specimen (specimen) 07/24/2017 3:42 AM EDT 07/24/2017 3:42 AM EDT Sriram Contreras MD POINT OF CARE TEST ORDERABLES Performing Organization Address [facility] Co de Phone Number [facility] [place] [address] * Scan, Peripheral Blood (07/24/2017 1:00 AM EDT) [facility] Plat estimate Normal [facility] RBC Morphology Normal [facility] Blood specimen (specimen) Venous Draw / Unknown 07/24/2017 1:00 AM EDT 07/24/2017 1:15 AM EDT Narrative Resulting Agency Comment Spec In Lab Sriram Contreras MD HEMATOLOGY ORDERAB LES Performing Organization Address [facility] Co de Phone Number [facility] [place] [address] * (ABNORMAL) Differential, Automated (07/24/2017 1:00 AM EDT) [facility] Neutrophil % 69.9 % [facility] Neutrophil Absolute 9.34(H) 1.70 - 6.10 x10(3)/mc L [facility] Lymph % 13.7 % [facility] Lymphocytes Abs 1.8 0.9 - 3.2 x10(3)/[facility]OR[facility] Monocyte % 8.1 % [facility] Monocyte Abs 1.1(H) 0.3 - 0.9 x10(3)/[facility] LABOR[facility]ORY Eos % 2.2 % [facility] Eosinophils Abs 0.3 0.0 - 0.4 x10(3)/[facility]OR[facility]ORY Basophil % 0.7 % [facility] Baso Absolute 0.1 0.0 - 0.1 x10(3)/[facility] LABORATORY Immature Gran % 5.40 % [facility] Comment: Immature granulocytes(IG's)percentage and absolute count will include metamyelocytes, myelocytes, and promyelocytes. Blood smears from CBCs yielding IG's will be scanned manually for concordance. If this scan disagrees with the automated IG or if promyelocytes are noted, a manual differential will be performed. Immature Gran Absolute 0.72(H) 0.00 - 0.04 x10(3)/[facility] LABORATORY Blood specimen (specimen) 07/24/2017 1:00 AM EDT 07/24/2017 1:15 AM EDT Narrative Resulting Agency Comment Spec In Lab Sriram Contreras MD HEMATOLOGY ORDERAB LES [facility] [place] [address] * (ABNORMAL) Hemogram (07/24/2017 1:00 AM EDT) White Blood Cell 13.4(H) 4.0 - 9.5 x10(3)/[facility] LABORATORY Red Blood Cell 4.13(L) 4.58 - 5.54 x10(6)/[facility]ORY Hemoglobin 12.7(L) 13.7 - 16.5 gm/dL [facility] Hematocrit 38.0(L) 40.5 - 48.5 % [facility] Mean Cell Volume 92.0 82.9 - 93.1 fL [facility] Mean Cell Hemoglobin 30.8 27.5 - 32.1 pg [facility] Mean Cell Hemoglobin Concentration 33.4 32.0 - 35.7 gm/dL [facility] Platelet 201 145 - 357 x10(3)/mc L [facility] RDW Standard Deviation 45.5(H) 36.0 - 45.0 fL [facility] RDW coefficient of variation 13.4 11.4 - 13.8 % [facility] Mean Platelet Volume 10.1 7.6 - 12.9 fL [facility] NRBC% auto 0.0 % [facility] NRBC Absolute 0.000 0.000 - 0.000 x10(3)/mc L [facility] Blood specimen (specimen) 07/24/2017 1:00 AM EDT 07/24/2017 1:15 AM EDT Narrative Resulting Agency Comment Spec In Lab Sriram Contreras MD HEMATOLOGY ORDERAB LES [facility] [place] [address] * (ABNORMAL) APTT (07/24/2017 1:00 AM EDT) [facility] Partial Thromboplastin Time 102(H) 25 - 35 sec [facility] Comment: The recommended therapeutic range for full dose, unfractionated heparin at [facility] [place] [place] is 80 ? 114 seconds. The use of the anti-Xa (heparin) level rather than the PTT is recommended for monitoring anticoagulation intensity in critically ill patients receiving unfractionated heparin by continuous IV infusion. Blood specimen (specimen) 07/24/2017 1:00 AM EDT 07/24/2017 1:14 AM EDT Narrative Resulting Agency Comment Spec In Lab Sriram Contreras MD HEMATOLOGY ORDERAB LES [facility] [place] [address] * (ABNORMAL) Basic Metabolic Panel (non-fasting) (07/24/2017 1:00 AM EDT) Glucose 103 65 - 199 mg/dL [facility] Comment:Diabetes: >=200 mg/d L plus symptoms Blood Urea Nitrogen 17 10 - 20 mg/dL [facility] Creatinine 0.70(L) 0.80 - 1.50 mg/dL [facility] Comment: Please note that the pediatric reference intervals supplied above were not validated at [facility] [place] [place]. Results from pediatric patients should be interpreted in conjunction to the patient's age, height and muscle mass. Sodium 143 135 - 145 mmol/L [facility] Potassium 4.0 3.5 - 5.0 mmol/L [facility] Comment: Please note: ??Patients with WBC >100,000 may have falsely elevated Potassium levels. ??For accurate Potassium quantification in these patients send serum separator tube (gold top) for subsequent determinations. ??Contact the Clinical Chemistry Laboratory if there are any questions. Chloride 104 98 - 107 mmol/L [facility] Carbon Dioxide 27 22 - 31 mmol/L [facility] Anion Gap 12 5 - 15 mmol/L [facility] Calcium 8.7 8.5 - 10.5 mg/dL [facility] Est Glomerular Filtration Rate >60 >=60 [facility] Comment: This estimated GFR [...] the following links into your internet browser. [email or web address] Blood specimen (specimen) 07/24/2017 1:00 AM EDT 07/24/2017 1:14 AM EDT Narrative Resulting Agency Comment Spec In Lab Sriram Contreras MD CHEMISTRY ORDERABL ES [facility] [place] [address] * POCT Glucose (07/23/2017 11:53 PM EDT) Glucose, POC 95 65 - 199 mg/dL [facility] Comment: Supplemental ranges: <140 mg/dL before meals <180 mg/dL all other times of the day Blood specimen (specimen) 07/23/2017 11:53 PM EDT 07/23/2017 11:53 PM EDT Sriram Contreras MD POINT OF CARE TEST ORDERABLES Performing Organization Address [facility]/ZIP Co de Phone Number [facility] [place] [address] * POCT Glucose (07/23/2017 7:52 PM EDT) Glucose, POC 91 65 - 199 mg/dL [facility] Comment: Supplemental ranges: <140 mg/dL before meals <180 mg/dL all other times of the day Blood specimen (specimen) 07/23/2017 7:52 PM EDT 07/23/2017 7:52 PM EDT Sriram Contreras MD POINT OF CARE TEST ORDERABLES Performing Organization Address City/[facility]/ZIP Co de Phone Number [facility] [place] [address] * POCT Glucose (07/23/2017 2:56 PM EDT) Glucose, POC 115 65 - 199 mg/dL [facility] Comment: Supplemental ranges: <140 mg/dL before meals <180 mg/dL all other times of the day Blood specimen (specimen) 07/23/2017 2:56 PM EDT 07/23/2017 2:56 PM EDT Sriram Contreras MD POINT OF CARE TEST ORDERABLES Performing Organization Address [facility] de Phone Number [facility] [place] [address] * (ABNORMAL) APTT (07/23/2017 2:55 PM EDT) Partial Thromboplastin Time 101(H) 25 - 35 sec [facility] Comment: The recommended therapeutic range for full dose, unfractionated heparin at [facility] [place] [place] is 80 ? 114 seconds. The use of the anti-Xa (heparin) level rather than the PTT is recommended for monitoring anticoagulation intensity in critically ill patients receiving unfractionated heparin by continuous IV infusion. Blood specimen (specimen) 07/23/2017 2:55 PM EDT 07/23/2017 3:04 PM EDT Narrative Resulting Agency Comment Spec In Lab Sriram Contreras MD HEMATOLOGY ORDERAB LES Performing Organization Address [facility] de Phone Number [facility] [place] [address] * POCT Glucose (07/23/2017 12:07 PM EDT) Glucose, POC 97 65 - 199 mg/dL [facility] Comment: Supplemental ranges: <140 mg/dL before meals <180 mg/dL all other times of the day Blood specimen (specimen) 07/23/2017 12:07 PM EDT 07/23/2017 12:07 PM EDT Sriram Contreras MD POINT OF CARE TEST ORDERABLES Performing Organization Address [facility] de Phone Number [facility] [address] * (ABNORMAL) APTT (07/23/2017 8:27 AM EDT) Partial Thromboplastin Time 95(H) 25 - 35 sec [facility] Comment: The recommended therapeutic range for full dose, unfractionated heparin at [facility] [place] [place] is 80 ? 114 seconds. The use of the anti-Xa (heparin) level rather than the PTT is recommended for monitoring anticoagulation intensity in critically ill patients receiving unfractionated heparin by continuous IV infusion. Blood specimen (specimen) 07/23/2017 8:27 AM EDT 07/23/2017 8:51 AM EDT Narrative Resulting Agency Comment Spec In Lab Sriram Contreras MD HEMATOLOGY ORDERAB LES Performing Organization Address [facility] Co de Phone Number [facility] [place] [address] * POCT Glucose (07/23/2017 8:02 AM EDT) [facility] Glucose, POC 103 65 - 199 mg/dL [facility] Comment: Supplemental ranges: <140 mg/dL before meals <180 mg/dL all other times of the day Blood specimen (specimen) 07/23/2017 8:02 AM EDT 07/23/2017 8:02 AM EDT Sriram Contreras MD POINT OF CARE TEST ORDERABLES Performing Organization Address [facility] Phone Number [facility] [place] [address] * (ABNORMAL) BLOOD GAS 2 ARTERIAL (07/23/2017 6:32 AM EDT) [facility] Signature pH, Arterial 7.41 7.35 - 7.45 [facility] PCO2, Arterial 37 35 - 45 mmHg [facility] PO2, Arterial 60(L) 85 - 104 mmHg [facility] Bicarbonate, Arterial 22.6 20.0 - 26.0 mmol/L [facility] Base Excess, Arterial -2.0 -3.0 - 3.0 mmol/L [facility] Hgb Blood Gas 12.7(L) 13.7 - 16.5 gm/dL [facility] Oxyhemoglobin, Arterial 90.3(L) 94.0 - 97.0 % [facility] Carboxyhemoglob in, Arterial 0.3 % [facility] Comment: Nonsmokers: 0.5-1.5% COHB Smokers: Variable, but usually less than 10% Toxic: 20-30% COHB Lethal: Greater than 60% COHB Methemoglobin, Arterial 0.5 <=1.5 % [facility] Na Whole Blood 138 135 - 145 mmol/L [facility] K Whole Blood 3.7 3.5 - 5.0 mmol/L [facility] Comment: Please note: Patients with WBC >100,000 may have falsely elevated Potassium levels. Contact the Clinical Chemistry Laboratory if there are any questions. ICa Whole Blood 1.15(L) 1.15 - 1.33 mmol/L [facility] Comment: Note: ??Total bilirubin higher than 20 mg/dL may lead to falsely low ionized calcium. CL Whole Blood 109(H) 98 - 107 mmol/L [facility] Gluc Whole Bld 122 65 - 199 mg/dL [facility] Comment:Diabetes: >=200 mg/d L plus symptoms. Lactate WB 1.4 0.5 - 2.2 mmol/L [facility] FIO2 Art 30 % [facility] PF Ratio Art 200 [facility] Blood specimen (specimen) 07/23/2017 6:32 AM EDT 07/23/2017 6:32 AM EDT Sriram Contreras MD POINT OF CARE TEST ORDERABLES [facility] [place] [address] * Potassium (07/23/2017 4:15 AM EDT) Potassium 4.1 3.5 - 5.0 mmol/L [facility] Comment: Please note: ??Patients with [...] MD CHEMISTRY ORDERABL ES Performing Organization Address [facility] Phone Number [facility] [place] [address] * POCT Glucose (07/23/2017 3:50 AM EDT) Glucose, POC 126 65 - 199 mg/dL [facility] Comment: Supplemental ranges: <140 mg/dL before meals <180 mg/dL all other times of the day Blood specimen (specimen) 07/23/2017 3:50 AM EDT 07/23/2017 3:50 AM EDT Sriram Contreras MD POINT OF CARE TEST ORDERABLES Performing Organization Address [facility] Phone Number [facility] [address] * (ABNORMAL) APTT (07/23/2017 1:53 AM EDT) [facility] Partial Thromboplastin Time 119(H) 25 - 35 sec [facility] Comment: The recommended therapeutic range for full dose, unfractionated heparin at [facility] [place] [place] is 80 ? 114 seconds. The use of the anti-Xa (heparin) level rather than the PTT is recommended for monitoring anticoagulation intensity in critically ill patients receiving unfractionated heparin by continuous IV infusion. Blood specimen (specimen) 07/23/2017 1:53 AM EDT 07/23/2017 2:01 AM EDT Narrative Resulting Agency Comment Spec In Lab Sriram Contreras MD HEMATOLOGY ORDERAB LES Performing Organization Address [facility] Phone Number [facility] [address] * (ABNORMAL) Differential, Automated (07/23/2017 12:45 AM EDT) Neutrophil % 63.2 % [facility] Neutrophil Absolute 6.47(H) 1.70 - 6.10 x10(3)/[facility] LABORATORY Lymph % 20.9 % [facility] Lymphocytes Abs 2.1 0.9 - 3.2 x10(3)/[facility] Monocyte % 7.6 % [facility] Monocyte Abs 0.8 0.3 - 0.9 x10(3)/[facility] Eos % 2.8 % [facility] Eosinophils Abs 0.3 0.0 - 0.4 x10(3)/[facility] Basophil % 0.7 % [facility] Baso Absolute 0.1 0.0 - 0.1 x10(3)/[facility] Immature Gran % 4.80 % [facility] Comment: Immature granulocytes(IG's)percentage and absolute count will include metamyelocytes, myelocytes, and promyelocytes. Blood smears from CBCs yielding IG's will be scanned manually for concordance. If this scan disagrees with the automated IG or if promyelocytes are noted, a manual differential will be performed. Immature Gran Absolute 0.49(H) 0.00 - 0.04 x10(3)/[facility] Blood specimen (specimen) 07/23/2017 12:45 AM EDT 07/23/2017 12:51 AM EDT Narrative Resulting Agency Comment Spec In Lab Sriram Contreras MD HEMATOLOGY ORDERAB LES [facility] [place] [address] * (ABNORMAL) Hemogram (07/23/2017 12:45 AM EDT) White Blood Cell 10.2(H) 4.0 - 9.5 x10(3)/[facility] LAB[facility] Red Blood Cell 3.62(L) 4.58 - 5.54 x10(6)/mc L [facility] Hemoglobin 11.1(L) 13.7 - 16.5 gm/dL [facility] Hematocrit 33.5(L) 40.5 - 48.5 % [facility] Mean Cell Volume 92.5 82.9 - 93.1 fL [facility] Mean Cell Hemoglobin 30.7 27.5 - 32.1 pg [facility] Mean Cell Hemoglobin Concentration 33.1 32.0 - 35.7 gm/dL [facility] Platelet 165 145 - 357 x10(3)/mc L [facility] RDW Standard Deviation 46.6(H) 36.0 - 45.0 [facility] RDW coefficient of variation 13.7 11.4 - 13.8 % [facility] Mean Platelet Volume 9.9 7.6 - 12.9 [facility] NRBC% auto 0.0 % [facility] NRBC Absolute 0.000 0.000 - 0.000 x10(3)/mc L [facility] Blood specimen (specimen) 07/23/2017 12:45 AM EDT 07/23/2017 12:51 AM EDT Narrative Resulting Agency Comment Spec In Lab Sriram Contreras MD HEMATOLOGY ORDERAB LES [facility] [place] [address] * (ABNORMAL) Basic Metabolic Panel (non-fasting) (07/23/2017 12:45 AM EDT) Glucose 127 65 - 199 mg/dL [facility] Comment:Diabetes: >=200 mg/d L plus symptoms Blood Urea Nitrogen 20 10 - 20 mg/dL [facility] Creatinine 0.65(L) 0.80 - 1.50 mg/dL [facility] Comment: Please note that the pediatric reference intervals supplied above were not validated at [facility] [place] [place]. Results from pediatric patients should be interpreted in conjunction to the patient's age, height and muscle mass. Sodium 142 135 - 145 mmol/L [facility] Potassium 3.7 3.5 - 5.0 mmol/L [facility] Comment: Please note: ??Patients with WBC >100,000 may have falsely elevated Potassium levels. ??For accurate Potassium quantification in these patients send serum separator tube (gold top) for subsequent determinations. ??Contact the Clinical Chemistry Laboratory if there are any questions. Chloride 105 98 - 107 mmol/L [facility] Carbon Dioxide 26 22 - 31 mmol/L [facility] Anion Gap 11 5 - 15 mmol/L [facility] Calcium 8.3(L) 8.5 - 10.5 mg/dL [facility] Est Glomerular Filtration Rate >60 >=60 [facility] Comment: This estimated GFR [...] the following links into your internet browser. [email or web address] Blood specimen (specimen) 07/23/2017 12:45 AM EDT 07/23/2017 12:51 AM EDT Narrative Resulting Agency Comment Spec In Lab Sriram Contreras MD CHEMISTRY ORDERABL ES [facility] [place] [address] * POCT Glucose (07/22/2017 11:59 PM EDT) Glucose, POC 113 65 - 199 mg/dL [facility] Comment: Supplemental ranges: <140 mg/dL before meals <180 mg/dL all other times of the day Blood specimen (specimen) 07/22/2017 11:59 PM EDT 07/22/2017 11:59 PM EDT Sriram Contreras MD POINT OF CARE TEST ORDERABLES Performing Organization Address City/[facility]/ZIP Co de Phone Number [facility] [place] [address] * POCT Glucose (07/22/2017 8:07 PM EDT) Glucose, POC 111 65 - 199 mg/dL [facility] Comment: Supplemental ranges: <140 mg/dL before meals <180 mg/dL all other times of the day Blood specimen (specimen) 07/22/2017 8:07 PM EDT 07/22/2017 8:07 PM EDT Sriram Contreras MD POINT OF CARE TEST ORDERABLES Performing Organization Address [facility] Co de Phone Number [facility] [place] [address] * POCT Glucose (07/22/2017 4:00 PM EDT) Glucose, POC 112 65 - 199 mg/dL [facility] Comment: Supplemental ranges: <140 mg/dL before meals <180 mg/dL all other times of the day Blood specimen (specimen) 07/22/2017 4:00 PM EDT 07/22/2017 4:00 PM EDT Sriram Contreras MD POINT OF CARE TEST ORDERABLES Performing Organization Address City/[facility] Co de Phone Number [facility] [place] [address] * (ABNORMAL) APTT (07/22/2017 4:00 PM EDT) Partial Thromboplastin Time 92(H) 25 - 35 sec [facility] Comment: The recommended therapeutic range for full dose, unfractionated heparin at [facility] [place] [place] is 80 ? 114 seconds. The use of the anti-Xa (heparin) level rather than the PTT is recommended for monitoring anticoagulation intensity in critically ill patients receiving unfractionated heparin by continuous IV infusion. Blood specimen (specimen) 07/22/2017 4:00 PM EDT 07/22/2017 4:18 PM EDT Narrative Resulting Agency Comment Spec In Lab Sriram Contreras MD HEMATOLOGY ORDERAB LES Performing Organization Address [facility] de Phone Number [facility] [place] [address] * POCT Glucose (07/22/2017 11:45 AM EDT) [facility] Glucose, POC 111 65 - 199 mg/dL [facility] Comment: Supplemental ranges: <140 mg/dL before meals <180 mg/dL all other times of the day Blood specimen (specimen) 07/22/2017 11:45 AM EDT 07/22/2017 11:45 AM EDT Sriram Contreras MD POINT OF CARE TEST ORDERABLES Performing Organization Address [facility] Phone Number [facility] [place] [address] * (ABNORMAL) APTT (07/22/2017 8:30 AM EDT) [facility] Partial Thromboplastin Time 83(H) 25 - 35 sec [facility] Comment: The recommended therapeutic range for full dose, unfractionated heparin at [facility] [place] [place] is 80 ? 114 seconds. The use of the anti-Xa (heparin) level rather than the PTT is recommended for monitoring anticoagulation intensity in critically ill patients receiving unfractionated heparin by continuous IV infusion. Blood specimen (specimen) 07/22/2017 8:30 AM EDT 07/22/2017 8:39 AM EDT Narrative Resulting Agency Comment Spec In Lab Sriram Contreras MD HEMATOLOGY ORDERAB LES Performing Organization Address [facility] de Phone Number [facility] [place] [address] * POCT Glucose (07/22/2017 8:28 AM EDT) Glucose, POC 118 65 - 199 mg/dL [facility] Comment: Supplemental ranges: <140 mg/dL before meals <180 mg/dL all other times of the day Blood specimen (specimen) 07/22/2017 8:28 AM EDT 07/22/2017 8:28 AM EDT Sriram Contreras MD POINT OF CARE TEST ORDERABLES [facility] [place] [address] * (ABNORMAL) BLOOD GAS 2 ARTERIAL (07/22/2017 8:27 AM EDT) pH, Arterial 7.42 7.35 - 7.45 [facility] PCO2, Arterial 39 35 - 45 mmHg [facility] PO2, Arterial 78(L) 85 - 104 mmHg [facility] Bicarbonate, Arterial 24.8 20.0 - 26.0 mmol/L [facility] Base Excess, Arterial 0.3 -3.0 - 3.0 mmol/L [facility] Hgb Blood Gas 13.4(L) 13.7 - 16.5 gm/dL [facility] Oxyhemoglobin, Arterial 94.2 94.0 - 97.0 % [facility] Carboxyhemoglob in, Arterial 0.3 % [facility] Comment: Nonsmokers: 0.5-1.5% COHB Smokers: Variable, but usually less than 10% Toxic: 20-30% COHB Lethal: Greater than 60% COHB Methemoglobin, Arterial 0.6 <=1.5 % [facility] Na Whole Blood 140 135 - 145 mmol/L [facility] K Whole Blood 3.8 3.5 - 5.0 mmol/L [facility] Comment: Please note: Patients with WBC >100,000 may have falsely elevated Potassium levels. Contact the Clinical Chemistry Laboratory if there are any questions. ICa Whole Blood 1.21 1.15 - 1.33 mmol/L [facility] Comment: Note: ??Total bilirubin higher than 20 mg/dL may lead to falsely low ionized calcium. CL Whole Blood 107 98 - 107 mmol/L [facility] Gluc Whole Bld 130 65 - 199 mg/dL [facility] Comment:Diabetes: >=200 mg/d L plus symptoms. Lactate WB 1.6 0.5 - 2.2 mmol/L [facility] FIO2 Art 40 % [facility] PF Ratio Art 195 [facility] Blood specimen (specimen) 07/22/2017 8:27 AM EDT 07/22/2017 8:27 AM EDT Sriram Contreras MD POINT OF CARE TEST ORDERABLES Performing Organization Address [facility] Co de Phone Number [facility] [place] [address] * (ABNORMAL) Differential, Automated (07/22/2017 3:10 AM EDT) Neutrophil % 72.0 % [facility] Neutrophil Absolute 8.75(H) 1.70 - 6.10 x10(3)/mc L [facility] Lymph % 15.0 % [facility] Lymphocytes Abs 1.8 0.9 - 3.2 x10(3)/mc L [facility] Monocyte % 8.0 % [facility] [facility] Monocyte Abs 1.0(H) 0.3 - 0.9 x10(3)/mc L [facility] Eos % 2.4 % [facility] Eosinophils Abs 0.3 0.0 - 0.4 x10(3)/mc L [facility] Basophil % 0.3 % [facility] Baso Absolute 0.0 0.0 - 0.1 x10(3)/mc L [facility] Immature Gran % 2.30 % [facility] Comment: Immature granulocytes(IG's)percentage and absolute count will include metamyelocytes, myelocytes, and promyelocytes. Blood smears from CBCs yielding IG's will be scanned manually for concordance. If this scan disagrees with the automated IG or if promyelocytes are noted, a manual differential will be performed. Immature Gran Absolute 0.28(H) 0.00 - 0.04 x10(3)/mc L [facility] Blood specimen (specimen) 07/22/2017 3:10 AM EDT 07/22/2017 3:15 AM EDT Narrative Resulting Agency Comment Spec In Lab Sriram Contreras MD HEMATOLOGY ORDERAB LES Performing Organization Address City/State/[facility] Co de Phone Number [facility] [place] [address] * (ABNORMAL) Hemogram (07/22/2017 3:10 AM EDT) White Blood Cell 12.2(H) 4.0 - 9.5 x10(3)/mc L [facility] Red Blood Cell 4.05(L) 4.58 - 5.54 x10(6)/mc L [facility] Hemoglobin 12.5(L) 13.7 - 16.5 gm/dL [facility] Hematocrit 37.9(L) 40.5 - 48.5 % [facility] Mean Cell Volume 93.6(H) 82.9 - 93.1 fL [facility] Mean Cell Hemoglobin 30.9 27.5 - 32.1 pg [facility] Mean Cell Hemoglobin Concentration 33.0 32.0 - 35.7 gm/dL [facility] Platelet 168 145 - 357 x10(3)/mc L [facility] RDW Standard Deviation 48.9(H) 36.0 - 45.0 fL [facility] RDW coefficient of variation 14.1(H) 11.4 - 13.8 % [facility] Mean Platelet Volume 10.2 7.6 - 12.9 fL [facility] NRBC% auto 0.0 % [facility] NRBC Absolute 0.000 0.000 - 0.000 x10(3)/mc L [facility] Blood specimen (specimen) 07/22/2017 3:10 AM EDT 07/22/2017 3:15 AM EDT Narrative Resulting Agency Comment Spec In Lab Sriram Contreras MD HEMATOLOGY ORDERAB LES Performing Organization Address [facility] de Phone Number [facility] [place] [address] * (ABNORMAL) APTT (07/22/2017 3:10 AM EDT) Partial Thromboplastin Time 89(H) 25 - 35 sec [facility] Comment: The recommended therapeutic range for full dose, unfractionated heparin at [facility] [place] [place] is 80 ? 114 seconds. The use of the anti-Xa (heparin) level rather than the PTT is recommended for monitoring anticoagulation intensity in critically ill patients receiving unfractionated heparin by continuous IV infusion. Blood specimen (specimen) 07/22/2017 3:10 AM EDT 07/22/2017 3:15 AM EDT Narrative Resulting Agency Comment Spec In Lab Sriram Contreras MD HEMATOLOGY ORDERAB LES Performing Organization Address [facility] de Phone Number [facility] [place] [address] * (ABNORMAL) Basic Metabolic Panel (non-fasting) (07/22/2017 3:10 AM EDT) Glucose 121 65 - 199 mg/dL [facility] Comment:Diabetes: >=200 mg/d L plus symptoms Blood Urea Nitrogen 23(H) 10 - 20 mg/dL [facility] Creatinine 0.76(L) 0.80 - 1.50 mg/dL [facility] Comment: Please note that the pediatric reference intervals supplied above were not validated at [facility] [place] [place]. Results from pediatric patients should be interpreted in conjunction to the patient's age, height and muscle mass. Sodium 144 135 - 145 mmol/L [facility] Potassium 3.9 3.5 - 5.0 mmol/L [facility] Comment: Please note: ??Patients with WBC >100,000 may have falsely elevated Potassium levels. ??For accurate Potassium quantification in these patients send serum separator tube (gold top) for subsequent determinations. ??Contact the Clinical Chemistry Laboratory if there are any questions. Chloride 106 98 - 107 mmol/L [facility] Carbon Dioxide 25 22 - 31 mmol/L [facility] Anion Gap 13 5 - 15 mmol/L [facility] Calcium 8.3(L) 8.5 - 10.5 mg/dL [facility] Est Glomerular Filtration Rate >60 >=60 [facility] Comment: This estimated GFR [...] the following links into your internet browser. [email or web address] Blood specimen (specimen) 07/22/2017 3:10 AM EDT 07/22/2017 3:15 AM EDT Narrative Resulting Agency Comment Spec In Lab Sriram Contreras MD CHEMISTRY ORDERABL ES [facility] [place] [address] * POCT Glucose (07/22/2017 3:08 AM EDT) Glucose, POC 109 65 - 199 mg/dL [facility] Comment: Supplemental ranges: <140 mg/dL before meals <180 mg/dL all other times of the day Blood specimen (specimen) 07/22/2017 3:08 AM EDT 07/22/2017 3:08 AM EDT Sriram Contreras MD POINT OF CARE TEST ORDERABLES [facility] [place] [address] * POCT Glucose (07/21/2017 11:52 PM EDT) [facility] Glucose, POC 135 65 - 199 mg/dL [facility] Comment: Supplemental ranges: <140 mg/dL before meals <180 mg/dL all other times of the day Blood specimen (specimen) 07/21/2017 11:52 PM EDT 07/21/2017 11:52 PM EDT Sriram Contreras MD POINT OF CARE TEST ORDERABLES Performing Organization Address [facility] Co de Phone Number [facility] [place] [address] * EKG 12 Lead (07/21/2017 10:42 PM EDT) [facility] Ventricular rate 75 BPM MUSE SYSTEM Atrial Rate 258 BPM MUSE SYSTEM QRS Duration 86 ms MUSE SYSTEM Q-T Interval 400 ms MUSE SYSTEM QTC Calculated (Bezet) 446 ms MUSE SYSTEM Calculated R [employer] 61 degrees MUSE SYSTEM Calculated T [employer] 136 degrees MUSE SYSTEM INTERPRETATION Atrial fibrillation [...] Contreras MD ECG ORDERABLES Performing Organization Address City/[facility] Co de Phone Number MUSE SYSTEM * Magnesium (07/21/2017 10:35 PM EDT) Magnesium 0.80 0.69 - 1.07 mmol/L [facility] Blood specimen (specimen) 07/21/2017 10:35 PM EDT 07/21/2017 10:40 PM EDT Narrative Resulting Agency Comment Spec In Lab Sriram Contreras MD CHEMISTRY ORDERABL ES [facility] [place] [address] * (ABNORMAL) Basic Metabolic Panel (non-fasting) (07/21/2017 10:35 PM EDT) Glucose 135 65 - 199 mg/dL [facility] Comment:Diabetes: >=200 mg/d L plus symptoms Blood Urea Nitrogen 23(H) 10 - 20 mg/dL [facility] Creatinine 0.88 0.80 - 1.50 mg/dL [facility] Comment: Please note that the pediatric reference intervals supplied above were not validated at [facility] [place] [place]. Results from pediatric patients should be interpreted in conjunction to the patient's age, height and muscle mass. Sodium 144 135 - 145 mmol/L [facility] Potassium 4.0 3.5 - 5.0 mmol/L [facility] Comment: Please note: ??Patients with WBC >100,000 may have falsely elevated Potassium levels. ??For accurate Potassium quantification in these patients send serum separator tube (gold top) for subsequent determinations. ??Contact the Clinical Chemistry Laboratory if there are any questions. Chloride 107 98 - 107 mmol/L [facility] Carbon Dioxide 25 22 - 31 mmol/L [facility] Anion Gap 12 5 - 15 mmol/L [facility] Calcium 8.7 8.5 - 10.5 mg/dL [facility] Est Glomerular Filtration Rate >60 >=60 [facility] Comment: This estimated GFR [...] the following links into your internet browser. [email or web address] Blood specimen (specimen) 07/21/2017 10:35 PM EDT 07/21/2017 10:40 PM EDT Narrative Resulting Agency Comment Spec In Lab Srriam Contreras MD CHEMISTRY ORDERABL ES Performing Organization Address [facility] Phone Number [facility] [place] [address] * (ABNORMAL) APTT (07/21/2017 9:10 PM EDT) Partial Thromboplastin Time 87(H) 25 - 35 sec [facility] Comment: The recommended therapeutic range for full dose, unfractionated heparin at [facility] [place] [place] is 80 ? 114 seconds. The use of the anti-Xa (heparin) level rather than the PTT is recommended for monitoring anticoagulation intensity in critically ill patients receiving unfractionated heparin by continuous IV infusion. Blood specimen (specimen) 07/21/2017 9:10 PM EDT 07/21/2017 9:17 PM EDT Narrative Resulting Agency Comment Spec In Lab Sriram Contreras MD HEMATOLOGY ORDERAB LES Performing Organization Address [facility] de Phone Number [facility] [place] [address] * POCT Glucose (07/21/2017 7:49 PM EDT) Glucose, POC 117 65 - 199 mg/dL [facility] Comment: Supplemental ranges: <140 mg/dL before meals <180 mg/dL all other times of the day Blood specimen (specimen) 07/21/2017 7:49 PM EDT 07/21/2017 7:49 PM EDT Sriram Contreras MD POINT OF CARE TEST ORDERABLES Performing Organization Address [facility] Co de Phone Number [facility] [place] [address] * POCT Glucose (07/21/2017 4:10 PM EDT) Glucose, POC 116 65 - 199 mg/dL [facility] Comment: Supplemental ranges: <140 mg/dL before meals <180 mg/dL all other times of the day Blood specimen (specimen) 07/21/2017 4:10 PM EDT 07/21/2017 4:10 PM EDT Sriram Contreras MD POINT OF CARE TEST ORDERABLES Performing Organization Address [facility] de Phone Number [facility] [place] [address] * (ABNORMAL) APTT (07/21/2017 4:10 PM EDT) [facility] Partial Thromboplastin Time 78(H) 25 - 35 sec [facility] Comment: The recommended therapeutic range for full dose, unfractionated heparin at [facility] [place] [place] is 80 ? 114 seconds. The use of the anti-Xa (heparin) level rather than the PTT is recommended for monitoring anticoagulation intensity in critically ill patients receiving unfractionated heparin by continuous IV infusion. Blood specimen (specimen) 07/21/2017 4:10 PM EDT 07/21/2017 4:28 PM EDT Narrative Resulting Agency Comment Spec In Lab Sriram Contreras MD HEMATOLOGY ORDERAB LES Performing Organization Address [facility] Co de Phone Number [facility] [place] [address] * POCT Glucose (07/21/2017 12:04 PM EDT) Glucose, POC 138 65 - 199 mg/dL [facility] Comment: Supplemental ranges: <140 mg/dL before meals <180 mg/dL all other times of the day Blood specimen (specimen) 07/21/2017 12:04 PM EDT 07/21/2017 12:04 PM EDT Sriram Contreras MD POINT OF CARE TEST ORDERABLES Performing Organization Address [facility] Co de Phone Number [facility] [place] [address] * C. Difficile Screen (07/21/2017 9:00 AM EDT) C Diff Interp Negative Negative [facility] Comment: [...] ERAL ORDERABLES Performing Organization Address [facility] Co de Phone Number [facility] [place] [address] * Potassium (07/21/2017 8:30 AM EDT) Potassium 3.8 3.5 - 5.0 mmol/L [facility] Comment: Please note: ??Patients with [...] ES Performing Organization Address [facility] Co de Phone Number [facility] [place] [address] * (ABNORMAL) APTT (07/21/2017 8:30 AM EDT) Partial Thromboplastin Time 63(H) 25 - 35 sec [facility] Comment: The recommended therapeutic range for full dose, unfractionated heparin at [facility] [place] [place] is 80 ? 114 seconds. The use of the anti-Xa (heparin) level rather than the PTT is recommended for monitoring anticoagulation intensity in critically ill patients receiving unfractionated heparin by continuous IV infusion. Blood specimen (specimen) 07/21/2017 8:30 AM EDT 07/21/2017 8:40 AM EDT Narrative Resulting Agency Comment Spec In Lab Sriram Contreras MD HEMATOLOGY ORDERAB LES Performing Organization Address [facility] Co de Phone Number [facility] [place] [address] * POCT Glucose (07/21/2017 8:24 AM EDT) [facility] Glucose, POC 131 65 - 199 mg/dL [facility] Comment: Supplemental ranges: <140 mg/dL before meals <180 mg/dL all other times of the day Blood specimen (specimen) 07/21/2017 8:24 AM EDT 07/21/2017 8:24 AM EDT Sriram Contreras MD POINT OF CARE TEST ORDERABLES Performing Organization Address [facility]/ZIP Co de Phone Number [facility] [place] [address] * (ABNORMAL) BLOOD GAS 2 ARTERIAL (07/21/2017 7:42 AM EDT) [facility] pH, Arterial 7.44 7.35 - 7.45 [facility] PCO2, Arterial 37 35 - 45 mmHg [facility] PO2, Arterial 72(L) 85 - 104 mmHg [facility] Bicarbonate, Arterial 24.5 20.0 - 26.0 mmol/L [facility] Base Excess, Arterial 0.3 -3.0 - 3.0 mmol/L [facility] Hgb Blood Gas 14.0 13.7 - 16.5 gm/dL [facility] Oxyhemoglobin, Arterial 93.8(L) 94.0 - 97.0 % [facility] Carboxyhemoglob in, Arterial 0.3 % [facility] Comment: Nonsmokers: 0.5-1.5% COHB Smokers: Variable, but usually less than 10% Toxic: 20-30% COHB Lethal: Greater than 60% COHB Methemoglobin, Arterial 0.5 <=1.5 % [facility] Na Whole Blood 143 135 - 145 mmol/L [facility] K Whole Blood 4.0 3.5 - 5.0 mmol/L [facility] Comment: Please note: Patients with WBC >100,000 may have falsely elevated Potassium levels. Contact the Clinical Chemistry Laboratory if there are any questions. ICa Whole Blood 1.22 1.15 - 1.33 mmol/L [facility] Comment: Note: ??Total bilirubin higher than 20 mg/dL may lead to falsely low ionized calcium. CL Whole Blood 111(H) 98 - 107 mmol/L [facility] Gluc Whole Bld 148 65 - 199 mg/dL [facility] Comment:Diabetes: >=200 mg/d L plus symptoms. Lactate WB 1.5 0.5 - 2.2 mmol/L [facility] FIO2 Art 40 % [facility] PF Ratio Art 180 [facility] Blood specimen (specimen) 07/21/2017 7:42 AM EDT 07/21/2017 7:42 AM EDT Sriram Contreras MD POINT OF CARE TEST ORDERABLES [facility] [place] [address] * POCT Glucose (07/21/2017 3:21 AM EDT) Glucose, POC 116 65 - 199 mg/dL [facility] Comment: Supplemental ranges: <140 mg/dL before meals <180 mg/dL all other times of the day Blood specimen (specimen) 07/21/2017 3:21 AM EDT 07/21/2017 3:21 AM EDT Sriram Contreras MD POINT OF CARE TEST ORDERABLES Performing Organization Address [facility] de Phone Number [facility] [address] * Potassium (07/21/2017 3:20 AM EDT) Potassium 4.0 3.5 - 5.0 mmol/L [facility] Comment: Please note: ??Patients with [...] MD CHEMISTRY ORDERABL ES Performing Organization Address [facility] Number [facility] [address] * (ABNORMAL) APTT (07/21/2017 1:05 AM EDT) Partial Thromboplastin Time 42(H) 25 - 35 sec [facility] Comment: The recommended therapeutic range for full dose, unfractionated heparin at [facility] [place] [place] is 80 ? 114 seconds. The use of the anti-Xa (heparin) level rather than the PTT is recommended for monitoring anticoagulation intensity in critically ill patients receiving unfractionated heparin by continuous IV infusion. Blood specimen (specimen) 07/21/2017 1:05 AM EDT 07/21/2017 1:08 AM EDT Narrative Resulting Agency Comment Spec In Lab Sriram Contreras MD HEMATOLOGY ORDERAB LES [facility] [place] [place] [address] * (ABNORMAL) Differential, Automated (07/21/2017 12:25 AM EDT) Neutrophil % 75.8 % [facility] Neutrophil Absolute 7.59(H) 1.70 - 6.10 x10(3)/mc L [facility] Lymph % 12.8 % [facility] Lymphocytes Abs 1.3 0.9 - 3.2 x10(3)/mc L [facility] Monocyte % 9.0 % [facility] Monocyte Abs 0.9 0.3 - 0.9 x10(3)/mc L [facility] Eos % 1.1 % [facility] Eosinophils Abs 0.1 0.0 - 0.4 x10(3)/ L [facility] Basophil % 0.3 % [facility] Baso Absolute 0.0 0.0 - 0.1 x10(3)/mc L [facility] Immature Gran % 1.00 % [facility] Comment: Immature granulocytes(IG's)percentage and absolute count will include metamyelocytes, myelocytes, and promyelocytes. Blood smears from CBCs yielding IG's will be scanned manually for concordance. If this scan disagrees with the automated IG or if promyelocytes are noted, a manual differential will be performed. Immature Gran Absolute 0.10(H) 0.00 - 0.04 x10(3)/mc L [facility] Blood specimen (specimen) 07/21/2017 12:25 AM EDT 07/21/2017 12:48 AM EDT Narrative Resulting Agency Comment Spec In Lab Sriram Contreras MD HEMATOLOGY ORDERAB LES Performing Organization Address [facility]/ZIP Co de Phone Number [facility] [address] * (ABNORMAL) Hemogram (07/21/2017 12:25 AM EDT) White Blood Cell 10.0(H) 4.0 - 9.5 x10(3)/mc L [facility] Red Blood Cell 4.24(L) 4.58 - 5.54 x10(6)/mc L [facility] Hemoglobin 13.2(L) 13.7 - 16.5 gm/dL [facility] Hematocrit 39.4(L) 40.5 - 48.5 % [facility] Mean Cell Volume 92.9 82.9 - 93.1 fL [facility] Mean Cell Hemoglobin 31.1 27.5 - 32.1 pg [facility] Mean Cell Hemoglobin Concentration 33.5 32.0 - 35.7 gm/dL [facility] Platelet 163 145 - 357 x10(3)/[facility]AT[facility] RDW Standard Deviation 48.0(H) 36.0 - 45.0 fL [facility] RDW coefficient of variation 14.1(H) 11.4 - 13.8 % [facility] Mean Platelet Volume 10.2 7.6 - 12.9 fL [facility] NRBC% auto 0.0 % [facility] NRBC Absolute 0.000 0.000 - 0.000 x10(3)/ L [facility] Blood specimen (specimen) 07/21/2017 12:25 AM EDT 07/21/2017 12:48 AM EDT Narrative Resulting Agency Comment Spec In Lab Sriram Contreras MD HEMATOLOGY ORDERAB LES [facility] [address] * (ABNORMAL) Basic Metabolic Panel (non-fasting) (07/21/2017 12:25 AM EDT) Glucose 132 65 - 199 mg/dL [facility] Comment:Diabetes: >=200 mg/d L plus symptoms Blood Urea Nitrogen 22(H) 10 - 20 mg/dL [facility] Creatinine 0.79(L) 0.80 - 1.50 mg/dL [facility] Comment: Please note that the pediatric reference intervals supplied above were not validated at [facility] [place] [place]. Results from pediatric patients should be interpreted in conjunction to the patient's age, height and muscle mass. Sodium 146(H) 135 - 145 mmol/L [facility] Potassium 3.8 3.5 - 5.0 mmol/L [facility] Comment: Please note: ??Patients with WBC >100,000 may have falsely elevated Potassium levels. ??For accurate Potassium quantification in these patients send serum separator tube (gold top) for subsequent determinations. ??Contact the Clinical Chemistry Laboratory if there are any questions. Chloride 110(H) 98 - 107 mmol/L [facility] Carbon Dioxide 25 22 - 31 mmol/L [facility] Anion Gap 11 5 - 15 mmol/L [facility] Calcium 8.5 8.5 - 10.5 mg/dL [facility] Est Glomerular Filtration Rate >60 >=60 [facility] Comment: This estimated GFR [...] the following links into your internet browser. [email or web address] Blood specimen (specimen) 07/21/2017 12:25 AM EDT 07/21/2017 12:48 AM EDT Narrative Resulting Agency Comment Spec In Lab Sriram Contreras MD CHEMISTRY ORDERABL ES [facility] [place] [address] * (ABNORMAL) BLOOD GAS 2 ARTERIAL (07/21/2017 12:21 AM EDT) pH, Arterial 7.44 7.35 - 7.45 [facility] PCO2, Arterial 37 35 - 45 mmHg [facility] PO2, Arterial 70(L) 85 - 104 mmHg [facility] Bicarbonate, Arterial 24.1 20.0 - 26.0 mmol/L [facility] Base Excess, Arterial 0.1 -3.0 - 3.0 mmol/L [facility] Hgb Blood Gas 14.3 13.7 - 16.5 gm/dL [facility] Oxyhemoglobin, Arterial 92.8(L) 94.0 - 97.0 % [facility] Carboxyhemoglob in, Arterial 0.0 % [facility] Comment: Nonsmokers: 0.5-1.5% COHB Smokers: Variable, but usually less than 10% Toxic: 20-30% COHB Lethal: Greater than 60% COHB Methemoglobin, Arterial 0.4 <=1.5 % [facility] Na Whole Blood 145 135 - 145 mmol/L [facility] K Whole Blood 3.9 3.5 - 5.0 mmol/L [facility] Comment: Please note: Patients with WBC >100,000 may have falsely elevated Potassium levels. Contact the Clinical Chemistry Laboratory if there are any questions. ICa Whole Blood 1.21 1.15 - 1.33 mmol/L [facility] Comment: Note: ??Total bilirubin higher than 20 mg/dL may lead to falsely low ionized calcium. CL Whole Blood 110(H) 98 - 107 mmol/L [facility] Gluc Whole Bld 132 65 - 199 mg/dL [facility] Comment:Diabetes: >=200 mg/d L plus symptoms. Lactate WB 1.1 0.5 - 2.2 mmol/L [facility] FIO2 Art 40 % [facility] PF Ratio Art 175 [facility] Temp Art 37.[address] [facility] Blood specimen (specimen) 07/21/2017 12:21 AM EDT 07/21/2017 12:21 AM EDT Sriram Contreras MD POINT OF CARE TEST ORDERABLES Performing Organization Address [facility] Co de Phone Number [facility] [place] [address] * POCT Glucose (07/21/2017 12:00 AM EDT) Glucose, POC 119 65 - 199 mg/dL [facility] Comment: Supplemental ranges: <140 mg/dL before meals <180 mg/dL all other times of the day Blood specimen (specimen) 07/21/2017 07/21/2017 Sriram Contreras MD POINT OF CARE TEST ORDERABLES Performing Organization Address [facility] Phone Number [facility] [place] [address] * Potassium (07/20/2017 9:50 PM EDT) [facility] Potassium 4.1 3.5 - 5.0 mmol/L [facility] Comment: Please note: ??Patients with [...] MD CHEMISTRY ORDERABL ES Performing Organization Address [facility] Co de Phone Number [facility] [place] [address] * EKG 12 Lead (07/20/2017 8:40 PM EDT) Ventricular rate 77 BPM MUSE SYSTEM Atrial Rate 394 BPM MUSE SYSTEM QRS Duration 86 ms MUSE SYSTEM Q-T Interval 396 ms MUSE SYSTEM QTC Calculated (Bezet) 448 ms MUSE SYSTEM Calculated R [employer] 73 degrees MUSE SYSTEM Calculated T [employer] 127 degrees MUSE SYSTEM INTERPRETATION Atrial fibrillation Nonspecific ST abnormality Abnormal ECG When compared with ECG of 19-JUL-2017 16:55, Nonspecific T wave abnormality no longer evident in Inferior leads T wave inversion now evident in Lateral leads Confirmed by MD DUSTY, EDI ([id number]) on 07/21/2017 8:04:57 PM MUSE SYSTEM 07/20/2017 8:40 PM EDT 07/21/2017 8:04 PM EDT Biju Aguero YARD LABORER ECG ORDERABLES MUSE SYSTEM * POCT Glucose (07/20/2017 7:28 PM EDT) [facility] Glucose, POC 126 65 - 199 mg/dL [facility] Comment: Supplemental ranges: <140 mg/dL before meals <180 mg/dL all other times of the day Blood specimen (specimen) 07/20/2017 7:28 PM EDT 07/20/2017 7:28 PM EDT Sriram Contreras MD POINT OF CARE TEST ORDERABLES [facility] [place] [address] * (ABNORMAL) Differential, Automated (07/20/2017 5:15 PM EDT) [facility] Neutrophil % 79.7 % [facility] Neutrophil Absolute 8.01(H) 1.70 - 6.10 x10(3)/mc L [facility] Lymph % 10.4 % [facility] Lymphocytes Abs 1.0 0.9 - 3.2 x10(3)/mc L [facility] Monocyte % 8.0 % [facility] Monocyte Abs 0.8 0.3 - 0.9 x10(3)/mc L [facility] Eos % 0.7 % [facility] Eosinophils Abs 0.1 0.0 - 0.4 x10(3)/ L [facility] Basophil % 0.2 % [facility] Baso Absolute 0.0 0.0 - 0.1 x10(3)/[facility] LABORATORY Immature Gran % 1.00 % [facility] Comment: Immature granulocytes(IG's)percentage and absolute count will include metamyelocytes, myelocytes, and promyelocytes. Blood smears from CBCs yielding IG's will be scanned manually for concordance. If this scan disagrees with the automated IG or if promyelocytes are noted, a manual differential will be performed. Immature Gran Absolute 0.10(H) 0.00 - 0.04 x10(3)/[facility] LABORATORY Blood specimen (specimen) 07/20/2017 5:15 PM EDT 07/20/2017 5:26 PM EDT Narrative Resulting Agency Comment Spec In Lab Sriram Contreras MD HEMATOLOGY ORDERAB LES [facility] [place] [address] * (ABNORMAL) Hemogram (07/20/2017 5:15 PM EDT) White Blood Cell 10.0(H) 4.0 - 9.5 x10(3)/[facility] LABORATORY Red Blood Cell 4.28(L) 4.58 - 5.54 x10(6)/ L [facility] Hemoglobin 13.3(L) 13.7 - 16.5 gm/dL [facility] Hematocrit 39.9(L) 40.5 - 48.5 % [facility] Mean Cell Volume 93.2(H) 82.9 - 93.1 fL [facility] Mean Cell Hemoglobin 31.1 27.5 - 32.1 pg [facility] Mean Cell Hemoglobin Concentration 33.3 32.0 - 35.7 gm/dL [facility] Platelet 163 145 - 357 x10(3)/ L [facility] RDW Standard Deviation 47.7(H) 36.0 - 45.0 fL [facility] RDW coefficient of variation 14.1(H) 11.4 - 13.8 % [facility] Mean Platelet Volume 10.1 7.6 - 12.9 fL [facility] NRBC% auto 0.0 % [facility] NRBC Absolute 0.000 0.000 - 0.000 x10(3)/mc L [facility] Blood specimen (specimen) 07/20/2017 5:15 PM EDT 07/20/2017 5:26 PM EDT Narrative Resulting Agency Comment Spec In Lab Sriram Contreras MD HEMATOLOGY ORDERAB LES Performing Organization Address [facility] Co de Phone Number [facility] [place] [address] * APTT (07/20/2017 5:15 PM EDT) Partial Thromboplastin Time 28 25 - 35 sec [facility] Comment: The recommended therapeutic range for full dose, unfractionated heparin at [facility] [place] [place] is 80 ? 114 seconds. The use of the anti-Xa (heparin) level rather than the PTT is recommended for monitoring anticoagulation intensity in critically ill patients receiving unfractionated heparin by continuous IV infusion. Blood specimen (specimen) 07/20/2017 5:15 PM EDT 07/20/2017 5:26 PM EDT Narrative Resulting Agency Comment Spec In Lab Sriram Contreras MD HEMATOLOGY ORDERAB LES Performing Organization Address City/[facility]/ZIP Co de Phone Number [facility] [place] [address] * Magnesium (07/20/2017 4:50 PM EDT) Magnesium 1.00 0.69 - 1.07 mmol/L [facility] Blood specimen (specimen) 07/20/2017 4:50 PM EDT 07/20/2017 5:10 PM EDT Narrative Resulting Agency Comment Spec In Lab Sylvia Vaughn MD CHEMISTRY ORDERABLES [facility] [place] [address] * (ABNORMAL) Basic Metabolic Panel (non-fasting) (07/20/2017 4:50 PM EDT) Glucose 143 65 - 199 mg/dL [facility] Comment:Diabetes: >=200 mg/d L plus symptoms Blood Urea Nitrogen 23(H) 10 - 20 mg/dL [facility] Creatinine 0.85 0.80 - 1.50 mg/dL [facility] Comment: Please note that the pediatric reference intervals supplied above were not validated at [facility] [place] [place]. Results from pediatric patients should be interpreted in conjunction to the patient's age, height and muscle mass. Sodium 146(H) 135 - 145 mmol/L [facility] Potassium 3.9 3.5 - 5.0 mmol/L [facility] Comment: Please note: ??Patients with WBC >100,000 may have falsely elevated Potassium levels. ??For accurate Potassium quantification in these patients send serum separator tube (gold top) for subsequent determinations. ??Contact the Clinical Chemistry Laboratory if there are any questions. Chloride 110(H) 98 - 107 mmol/L [facility] Carbon Dioxide 25 22 - 31 mmol/L [facility] Anion Gap 11 5 - 15 mmol/L [facility] Calcium 8.5 8.5 - 10.5 mg/dL [facility] Est Glomerular Filtration Rate >60 >=60 [facility] Comment: This estimated GFR [...] the following links into your internet browser. [email or web address] Blood specimen (specimen) 07/20/2017 4:50 PM EDT 07/20/2017 5:10 PM EDT Narrative Resulting Agency Comment Spec In Lab Sylvia Vaughn MD CHEMISTRY ORDERABLES Performing Organization Address City/[facility]/ZIP Co de Phone Number [facility] [place] [address] * POCT Glucose (07/20/2017 3:41 PM EDT) Glucose, POC 138 65 - 199 mg/dL [facility] Comment: Supplemental ranges: <140 mg/dL before meals <180 mg/dL all other times of the day Blood specimen (specimen) 07/20/2017 3:41 PM EDT 07/20/2017 3:41 PM EDT Sriram Contreras MD POINT OF CARE TEST ORDERABLES Performing Organization Address [facility] Co de Phone Number [facility] [place] [address] * CTA Chest for Pulmonary Embolus w [...] suggestive of normal upper respiratory yung (A) [facility] Gram Stain Many White Blood Cells seen Few squamous epithelial cells seen Many Gram Negative Rods seen Many mixed bacterial morphotypes suggestive of normal upper respiratory yung (A) [facility] Organism Enterobacter aerogenes(A) [facility] Organism Gram Negative Rods(A) [facility] Specimen from trachea obtained by [...] Contreras MD MICROBIOLOGY - GEN ERAL ORDERABLES [facility] [place] [address] * POCT Glucose (07/20/2017 11:45 AM EDT) Glucose, POC 125 65 - 199 mg/dL [facility] Comment: Supplemental ranges: <140 mg/dL before meals <180 mg/dL all other times of the day Blood specimen (specimen) 07/20/2017 11:45 AM EDT 07/20/2017 11:45 AM EDT Sriram Contreras MD POINT OF CARE TEST ORDERABLES [facility] [place] [address] * (ABNORMAL) BLOOD GAS 2 ARTERIAL (07/20/2017 11:43 AM EDT) pH, Arterial 7.45 7.35 - 7.45 [facility] PCO2, Arterial 35 35 - 45 mmHg [facility] PO2, Arterial 57(L) 85 - 104 mmHg [facility] Bicarbonate, Arterial 23.9 20.0 - 26.0 mmol/L [facility] Base Excess, Arterial 0.1 -3.0 - 3.0 mmol/L [facility] Hgb Blood Gas 14.6 13.7 - 16.5 gm/dL [facility] Oxyhemoglobin, Arterial 89.5(L) 94.0 - 97.0 % [facility] Carboxyhemoglob in, Arterial 0.0 % [facility] Comment: Nonsmokers: 0.5-1.5% COHB Smokers: Variable, but usually less than 10% Toxic: 20-30% COHB Lethal: Greater than 60% COHB Methemoglobin, Arterial 0.5 <=1.5 % [facility] Na Whole Blood 145 135 - 145 mmol/L [facility] K Whole Blood 3.9 3.5 - 5.0 mmol/L [facility] Comment: Please note: Patients with WBC >100,000 may have falsely elevated Potassium levels. Contact the Clinical Chemistry Laboratory if there are any questions. ICa Whole Blood 1.23 1.15 - 1.33 mmol/L [facility] Comment: Note: ??Total bilirubin higher than 20 mg/dL may lead to falsely low ionized calcium. CL Whole Blood 110(H) 98 - 107 mmol/L [facility] Gluc Whole Bld 136 65 - 199 mg/dL [facility] Comment:Diabetes: >=200 mg/d L plus symptoms. Lactate WB 1.3 0.5 - 2.2 mmol/L [facility] FIO2 Art 35 % [facility] PF Ratio Art 163 [facility] Temp Art 37.[address] [facility] Blood specimen (specimen) 07/20/2017 11:43 AM EDT 07/20/2017 11:43 AM EDT Sriram Contreras MD POINT OF CARE TEST ORDERABLES Performing Organization Address [facility] Co de Phone Number [facility] [place] [address] * Potassium (07/20/2017 10:15 AM EDT) Potassium 4.1 3.5 - 5.0 mmol/L [facility] Comment: Please note: ??Patients with [...] ES Performing Organization Address [facility] Co de Phone Number [facility] [address] * XR Chest PA or AP 1 [...] hypoxic respiratory failure Location of Procedure: ICU [facility]. Risks and Benefits: The risks [...] Glucose, POC 134 65 - 199 mg/dL [facility] Comment: Supplemental ranges: <140 mg/dL before meals <180 mg/dL all other times of the day Blood specimen (specimen) 07/20/2017 7:29 AM EDT 07/20/2017 7:29 AM EDT Sriram Contreras MD POINT OF CARE TEST ORDERABLES [facility] [place] [address] * Potassium (07/20/2017 7:28 AM EDT) Pathologist [facility] Potassium 4.0 3.5 - 5.0 mmol/L [facility] Comment: Please note: ??Patients with [...] Lab Sriram Contreras MD CHEMISTRY ORDERABL ES [facility] [place] [address] * (ABNORMAL) Differential, Automated (07/20/2017 3:15 AM EDT) Pathologist [facility] Neutrophil % 83.6 % [facility] Neutrophil Absolute 8.93(H) 1.70 - 6.10 x10(3)/mc L [facility] Lymph % 9.1 % [facility] Lymphocytes Abs 1.0 0.9 - 3.2 x10(3)/mc L [facility] Monocyte % 6.3 % [facility] Monocyte Abs 0.7 0.3 - 0.9 x10(3)/mc L [facility] Eos % 0.1 % [facility] Eosinophils Abs 0.0 0.0 - 0.4 x10(3)/mc L [facility] Basophil % 0.2 % [facility] Baso Absolute 0.0 0.0 - 0.1 x10(3)/mc L [facility] Immature Gran % 0.70 % [facility] Comment: Immature granulocytes(IG's)percentage and absolute count will include metamyelocytes, myelocytes, and promyelocytes. Blood smears from CBCs yielding IG's will be scanned manually for concordance. If this scan disagrees with the automated IG or if promyelocytes are noted, a manual differential will be performed. Immature Gran Absolute 0.07(H) 0.00 - 0.04 x10(3)/mc L [facility] Blood specimen (specimen) 07/20/2017 3:15 AM EDT 07/20/2017 3:58 AM EDT Narrative Resulting Agency Comment Spec In Lab Sriram Contreras MD HEMATOLOGY ORDERAB LES [facility] [place] [address] * (ABNORMAL) Hemogram (07/20/2017 3:15 AM EDT) White Blood Cell 10.7(H) 4.0 - 9.5 x10(3)/mc L [facility] Red Blood Cell 4.40(L) 4.58 - 5.54 x10(6)/mc L [facility] Hemoglobin 13.7 13.7 - 16.5 gm/dL [facility] Hematocrit 39.6(L) 40.5 - 48.5 % [facility] Mean Cell Volume 90.0 82.9 - 93.1 fL [facility] Mean Cell Hemoglobin 31.1 27.5 - 32.1 pg [facility] Mean Cell Hemoglobin Concentration 34.6 32.0 - 35.7 gm/dL [facility] Platelet 186 145 - 357 x10(3)/mc L [facility] RDW Standard Deviation 45.8(H) 36.0 - 45.0 fL [facility] RDW coefficient of variation 13.9(H) 11.4 - 13.8 % [facility] Mean Platelet Volume 9.9 7.6 - 12.9 fL [facility] NRBC% auto 0.0 % [facility] NRBC Absolute 0.000 0.000 - 0.000 x10(3)/mc L [facility] Blood specimen (specimen) 07/20/2017 3:15 AM EDT 07/20/2017 3:58 AM EDT Narrative Resulting Agency Comment Spec In Lab Sriram Contreras MD HEMATOLOGY ORDERAB LES [facility] [place] [address] * (ABNORMAL) Basic Metabolic Panel (non-fasting) (07/20/2017 3:15 AM EDT) Glucose 126 65 - 199 mg/dL [facility] Comment:Diabetes: >=200 mg/d L plus symptoms Blood Urea Nitrogen 23(H) 10 - 20 mg/dL [facility] Creatinine 0.97 0.80 - 1.50 mg/dL [facility] Comment: Please note that the pediatric reference intervals supplied above were not validated at [facility] [place] [place]. Results from pediatric patients should be interpreted in conjunction to the patient's age, height and muscle mass. Sodium 143 135 - 145 mmol/L [facility] Potassium 3.9 3.5 - 5.0 mmol/L [facility] Comment: Please note: ??Patients with WBC >100,000 may have falsely elevated Potassium levels. ??For accurate Potassium quantification in these patients send serum separator tube (gold top) for subsequent determinations. ??Contact the Clinical Chemistry Laboratory if there are any questions. Chloride 106 98 - 107 mmol/L [facility] Carbon Dioxide 23 22 - 31 mmol/L [facility] Anion Gap 14 5 - 15 mmol/L [facility] Calcium 8.5 8.5 - 10.5 mg/dL [facility] Est Glomerular Filtration Rate >60 >=60 [facility] Comment: This estimated GFR [...] the following links into your internet browser. [email or web address] Blood specimen (specimen) 07/20/2017 3:15 AM EDT 07/20/2017 3:58 AM EDT Narrative Resulting Agency Comment Spec In Lab Sriram Contreras MD CHEMISTRY ORDERABL ES Performing Organization Address [facility] Co de Phone Number [facility] [place] [address] * POCT Glucose (07/20/2017 3:13 AM EDT) Glucose, POC 114 65 - 199 mg/dL [facility] Comment: Supplemental ranges: <140 mg/dL before meals <180 mg/dL all other times of the day Blood specimen (specimen) 07/20/2017 3:13 AM EDT 07/20/2017 3:13 AM EDT Sriram Contreras MD POINT OF CARE TEST ORDERABLES Performing Organization Address [facility] Co de Phone Number [facility] [place] [address] * (ABNORMAL) BLOOD GAS 2 ARTERIAL (07/19/2017 11:36 PM EDT) pH, Arterial 7.51(H) 7.35 - 7.45 [facility] PCO2, Arterial 29(L) 35 - 45 mmHg [facility] PO2, Arterial 77(L) 85 - 104 mmHg [facility] Bicarbonate, Arterial 22.2 20.0 - 26.0 mmol/L [facility] Base Excess, Arterial -0.8 -3.0 - 3.0 mmol/L [facility] Hgb Blood Gas 14.7 13.7 - 16.5 gm/dL [facility] Oxyhemoglobin, Arterial 94.7 94.0 - 97.0 % [facility] Carboxyhemoglob in, Arterial 0.3 % [facility] Comment: Nonsmokers: 0.5-1.5% COHB Smokers: Variable, but usually less than 10% Toxic: 20-30% COHB Lethal: Greater than 60% COHB Methemoglobin, Arterial 0.7 <=1.5 % [facility] Na Whole Blood 142 135 - 145 mmol/L [facility] K Whole Blood 3.8 3.5 - 5.0 mmol/L [facility] Comment: Please note: Patients with WBC >100,000 may have falsely elevated Potassium levels. Contact the Clinical Chemistry Laboratory if there are any questions. ICa Whole Blood 1.19 1.15 - 1.33 mmol/L [facility] Comment: Note: ??Total bilirubin higher than 20 mg/dL may lead to falsely low ionized calcium. CL Whole Blood 109(H) 98 - 107 mmol/L [facility] Gluc Whole Bld 125 65 - 199 mg/dL [facility] Comment:Diabetes: >=200 mg/d L plus symptoms. Lactate WB 1.6 0.5 - 2.2 mmol/L [facility] FIO2 Art 50 % [facility] PF Ratio Art 154 [facility] Blood specimen (specimen) 07/19/2017 11:36 PM EDT 07/19/2017 11:36 PM EDT Sriram Contreras MD POINT OF CARE TEST ORDERABLES [facility] [place] [address] * POCT Glucose (07/19/2017 11:31 PM EDT) Glucose, POC 110 65 - 199 mg/dL [facility] Comment: Supplemental ranges: <140 mg/dL before meals <180 mg/dL all other times of the day Blood specimen (specimen) 07/19/2017 11:31 PM EDT 07/19/2017 11:31 PM EDT Sriram Contreras MD POINT OF CARE TEST ORDERABLES Performing Organization Address [facility] Co de Phone Number [facility] [place] [address] * Potassium (07/19/2017 11:30 PM EDT) Potassium 3.9 3.5 - 5.0 mmol/L [facility] Comment: Please note: ??Patients with [...] ES Performing Organization Address [facility] Co de Phone Number [facility] [place] [address] * POCT Glucose (07/19/2017 7:45 PM EDT) Glucose, POC 100 65 - 199 mg/dL [facility] Comment: Supplemental ranges: <140 mg/dL before meals <180 mg/dL all other times of the day Blood specimen (specimen) 07/19/2017 7:45 PM EDT 07/19/2017 7:45 PM EDT Sriram Contreras MD POINT OF CARE TEST ORDERABLES Performing Organization Address [facility] Co de Phone Number [facility] [place] [address] * Blood culture (07/19/2017 7:00 PM EDT) Pathologist [facility] Blood Culture No growth at 5 days. [facility] Blood specimen (specimen) STRUCTURE OF LEFT WRIST REGION / Unknown 07/19/2017 7:00 PM EDT 07/19/2017 7:50 PM EDT Narrative Resulting Agency Comment Spec In Lab Sriram Contreras MD MICROBIOLOGY - BLO OD ORDERABLES Performing Organization Address City/[facility] Co de Phone Number [facility] [place] [address] * Blood culture (07/19/2017 6:50 PM EDT) Blood Culture No growth at 5 days. [facility] Blood specimen (specimen) STRUCTURE OF RIGHT WRIST REGION / Unknown 07/19/2017 6:50 PM EDT 07/19/2017 7:51 PM EDT Narrative Resulting Agency Comment Spec In Lab Sriram Contreras MD MICROBIOLOGY - BLO OD ORDERABLES Performing Organization Address [facility] Co de Phone Number [facility] [place] [address] * XR Chest PA or AP 1 [...] EDT) pH, Arterial 7.49(H) 7.35 - 7.45 [facility] PCO2, Arterial 32(L) 35 - 45 mmHg [facility] PO2, Arterial 66(L) 85 - 104 mmHg [facility] Bicarbonate, Arterial 23.2 20.0 - 26.0 mmol/L [facility] Base Excess, Arterial -0.2 -3.0 - 3.0 mmol/L [facility] Hgb Blood Gas 15.5 13.7 - 16.5 gm/dL [facility] Oxyhemoglobin, Arterial 93.1(L) 94.0 - 97.0 % [facility] Carboxyhemoglob in, Arterial 0.4 % [facility] Comment: Nonsmokers: 0.5-1.5% COHB Smokers: Variable, but usually less than 10% Toxic: 20-30% COHB Lethal: Greater than 60% COHB Methemoglobin, Arterial 0.6 <=1.5 % [facility] Na Whole Blood 158(H) 135 - 145 mmol/L [facility] K Whole Blood 4.0 3.5 - 5.0 mmol/L [facility] Comment: Please note: Patients with WBC >100,000 may have falsely elevated Potassium levels. Contact the Clinical Chemistry Laboratory if there are any questions. ICa Whole Blood 1.14(L) 1.15 - 1.33 mmol/L [facility] Comment: Note: ??Total bilirubin higher than 20 mg/dL may lead to falsely low ionized calcium. CL Whole Blood 120(H) 98 - 107 mmol/L [facility] Gluc Whole Bld 116 65 - 199 mg/dL [facility] Comment:Diabetes: >=200 mg/d L plus symptoms. Lactate WB 1.6 0.5 - 2.2 mmol/L [facility] FIO2 Art 100 % [facility] PF Ratio Art 66 [facility] Blood specimen (specimen) 07/19/2017 5:12 PM EDT 07/19/2017 5:12 PM EDT Sriram Contreras MD POINT OF CARE TEST ORDERABLES Performing Organization Address City/[facility]/ZIP Co de Phone Number [facility] [place] [id number] * EKG 12 Lead (07/19/2017 4:55 PM EDT) Ventricular rate 85 BPM MUSE SYSTEM Atrial Rate 326 BPM MUSE SYSTEM QRS Duration 92 ms MUSE SYSTEM Q-T Interval 388 ms MUSE SYSTEM QTC Calculated (Bezet) 461 ms MUSE SYSTEM Calculated R [employer] 65 degrees MUSE SYSTEM Calculated T [employer] 4 degrees MUSE SYSTEM INTERPRETATION Atrial fibrillation [...] Contreras MD ECG ORDERABLES Performing Organization Address City/[facility]/ZIP Co de Phone Number MUSE SYSTEM * Phosphorus (07/19/2017 4:50 PM EDT) Phosphorus 3.0 2.5 - 4.5 mg/dL [facility] Blood specimen (specimen) 07/19/2017 4:50 PM EDT 07/19/2017 5:05 PM EDT Narrative Resulting Agency Comment Spec In Lab Sriram Contreras MD CHEMISTRY ORDERABL ES [facility] [place] [address] * (ABNORMAL) Basic Metabolic Panel (non-fasting) (07/19/2017 4:50 PM EDT) Glucose 118 65 - 199 mg/dL [facility] Comment:Diabetes: >=200 mg/d L plus symptoms Blood Urea Nitrogen 19 10 - 20 mg/dL [facility] Creatinine 0.79(L) 0.80 - 1.50 mg/dL [facility] Comment: Please note that the pediatric reference intervals supplied above were not validated at [facility] [place], [place]. Results from pediatric patients should be interpreted in conjunction to the patient's age, height and muscle mass. Sodium 144 135 - 145 mmol/L [facility] Potassium 3.5 3.5 - 5.0 mmol/L [facility] Comment: Please note: ??Patients with WBC >100,000 may have falsely elevated Potassium levels. ??For accurate Potassium quantification in these patients send serum separator tube (gold top) for subsequent determinations. ??Contact the Clinical Chemistry Laboratory if there are any questions. Chloride 106 98 - 107 mmol/L [facility] Carbon Dioxide 23 22 - 31 mmol/L [facility] Anion Gap 15 5 - 15 mmol/L [facility] Calcium 8.7 8.5 - 10.5 mg/dL [facility] Est Glomerular Filtration Rate >60 >=60 [facility] Comment: This estimated GFR [...] the following links into your internet browser. [email or web address] Blood specimen (specimen) 07/19/2017 4:50 PM EDT 07/19/2017 5:05 PM EDT Narrative Resulting Agency Comment Spec In Lab Sriram Contreras MD CHEMISTRY ORDERABL ES Performing Organization Address [facility] Co de Phone Number [facility] [place] [address] * Magnesium (07/19/2017 4:50 PM EDT) Magnesium 0.86 0.69 - 1.07 mmol/L [facility] Blood specimen (specimen) 07/19/2017 4:50 PM EDT 07/19/2017 5:05 PM EDT Narrative Resulting Agency Comment Spec In Lab Sriram Contreras MD CHEMISTRY ORDERABL ES Performing Organization Address [facility] de Phone Number [facility] [place] [address] * POCT Glucose (07/19/2017 3:37 PM EDT) Glucose, POC 101 65 - 199 mg/dL [facility] Comment: Supplemental ranges: <140 mg/dL before meals <180 mg/dL all other times of the day Blood specimen (specimen) 07/19/2017 3:37 PM EDT 07/19/2017 3:37 PM EDT Sriram Contreras MD POINT OF CARE TEST ORDERABLES Performing Organization Address [facility] Co de Phone Number [facility] [place] [address] * XR Chest PA or AP 1 [...] Glucose, POC 100 65 - 199 mg/dL [facility] Comment: Supplemental ranges: <140 mg/dL before meals <180 mg/dL all other times of the day Blood specimen (specimen) 07/19/2017 12:36 PM EDT 07/19/2017 12:36 PM EDT Sriram Contreras MD POINT OF CARE TEST ORDERABLES [facility] [place] [address] * Potassium (07/19/2017 12:30 PM EDT) Potassium 3.7 3.5 - 5.0 mmol/L [facility] Comment: Please note: ??Patients with [...] Lab Sriram Contreras MD CHEMISTRY ORDERABL ES [facility] [place] [address] * (ABNORMAL) BLOOD GAS 2 ARTERIAL (07/19/2017 12:17 PM EDT) pH, Arterial 7.50(H) 7.35 - 7.45 [facility] PCO2, Arterial 32(L) 35 - 45 mmHg [facility] PO2, Arterial 60(L) 85 - 104 mmHg [facility] Bicarbonate, Arterial 23.7 20.0 - 26.0 mmol/L [facility] Base Excess, Arterial 0.5 -3.0 - 3.0 mmol/L [facility] Hgb Blood Gas 14.8 13.7 - 16.5 gm/dL [facility] Oxyhemoglobin, Arterial 91.1(L) 94.0 - 97.0 % [facility] Carboxyhemoglob in, Arterial 0.1 % [facility] Comment: Nonsmokers: 0.5-1.5% COHB Smokers: Variable, but usually less than 10% Toxic: 20-30% COHB Lethal: Greater than 60% COHB Methemoglobin, Arterial 0.6 <=1.5 % [facility] Na Whole Blood 145 135 - 145 mmol/L [facility] K Whole Blood 3.7 3.5 - 5.0 mmol/L [facility] Comment: Please note: Patients with WBC >100,000 may have falsely elevated Potassium levels. Contact the Clinical Chemistry Laboratory if there are any questions. ICa Whole Blood 1.16 1.15 - 1.33 mmol/L [facility] Comment: Note: ??Total bilirubin higher than 20 mg/dL may lead to falsely low ionized calcium. CL Whole Blood 109(H) 98 - 107 mmol/L [facility] Gluc Whole Bld 115 65 - 199 mg/dL [facility] Comment:Diabetes: >=200 mg/d L plus symptoms. Lactate WB 1.3 0.5 - 2.2 mmol/L [facility] FIO2 Art 45 % [facility] PF Ratio Art 133 [facility] Blood specimen (specimen) 07/19/2017 12:17 PM EDT 07/19/2017 12:17 PM EDT Sriram Contreras MD POINT OF CARE TEST ORDERABLES Performing Organization Address [facility] Co de Phone Number [facility] [place] [address] * Potassium (07/19/2017 8:50 AM EDT) Potassium 3.8 3.5 - 5.0 mmol/L [facility] Comment: Please note: ??Patients with [...] Comment Spec In Lab Sriram Cotnreras MD CHEMISTRY ORDERABL ES Performing Organization Address [facility] Co de Phone Number [facility] [place] [address] * Folate, serum (07/19/2017 8:50 AM EDT) Folate 16.6 4.8 - 24.2 ng/mL [facility] Blood specimen (specimen) 07/19/2017 8:50 AM EDT 07/19/2017 9:11 AM EDT Narrative Resulting Agency Comment Spec In Lab Sriram Contreras MD CHEMISTRY ORDERABL ES Performing Organization Address [facility]/ZIP Co de Phone Number [facility] [place] [address] * Vitamin B12 (07/19/2017 8:50 AM EDT) Vitamin B12 468 207 - 974 pg/mL [facility] Blood specimen (specimen) 07/19/2017 8:50 AM EDT 07/19/2017 9:11 AM EDT Narrative Resulting Agency Comment Spec In Lab Sriram Contreras MD CHEMISTRY ORDERABL ES Performing Organization Address [facility] Co de Phone Number [facility] [address] * (ABNORMAL) TSH (07/19/2017 8:50 AM EDT) Thyroid Stimulating Hormone 6.80(H) 0.27 - 4.20 mlU/ML [facility] Blood specimen (specimen) 07/19/2017 8:50 AM EDT 07/19/2017 9:11 AM EDT Narrative Resulting Agency Comment Spec In Lab Sriram Contreras MD CHEMISTRY ORDERABL ES Performing Organization Address [facility] Co de Phone Number [facility] [place] [address] * Urine Hold (07/19/2017 8:07 AM EDT) Hold, Urine Sample in lab. [facility] Urine specimen (specimen) Urine / Unknown 07/19/2017 8:07 AM EDT 07/19/2017 8:35 AM EDT Sriram Contreras MD URINE ORDERABLES Performing Organization Address City/[facility]/ZIP Co de Phone Number [facility] [address] * (ABNORMAL) Urinalysis with reflex Culture (07/19/2017 8:07 AM EDT) Glucose, Urine Dipstick Negative Negative mg/dL [facility] Protein, Urine Dipstick 30(A) Negative mg/dL [facility] Bilirubin, Urine Dipstick Negative Negative mg/dL [facility] Comment: Clinical correlation required for positive Urine Bilirubin results as false positive may occur with some drugs and drug related products. If a false positive is suspected a serum total bilirubin should be considered if clinically indicated. Urobilinogen, Urine Dipstick >=4.0(A) Normal mg/dL [facility] pH, Urn (dipstick) 7.0 5.0 - 8.0 [facility] Blood, Urine Dipstick Moderate(A) Negative mg/dL [facility] Ketone, Urine Dipstick Negative Negative mg/dL [facility] Nitrite, Urine Dipstick Negative Negative [facility] Leukocytes, Urine Dipstick Trace(A) Negative [facility] Appearance, Urine Dipstick Clear Clear [facility] Specific [place] Urine Automated 1.025 1.002 - 1.030 [facility] Color, Urine Dipstick Yellow Yellow [facility] RBC, Urine 161(H) 0 - 3 /HPF [facility] WBC, Urine 1 0 - 3 /HPF [facility] Reflex to Culture No [facility] Urine specimen obtained via indwelling urinary catheter (specimen) 07/19/2017 8:07 AM EDT 07/19/2017 8:34 AM EDT Narrative Resulting Agency Comment Spec In Lab Sriram Contreras MD URINE ORDERABLES [facility] [place] [address] * POCT Glucose (07/19/2017 7:42 AM EDT) Glucose, POC 99 65 - 199 mg/dL [facility] Comment: Supplemental ranges: <140 mg/dL before meals <180 mg/dL all other times of the day Blood specimen (specimen) 07/19/2017 7:42 AM EDT 07/19/2017 7:42 AM EDT Sriram Contreras MD POINT OF CARE TEST ORDERABLES Performing Organization Address City/[facility]/ZIP Co de Phone Number [facility] [address] * POCT Glucose (07/19/2017 4:11 AM EDT) Glucose, POC 93 65 - 199 mg/dL [facility] Comment: Supplemental ranges: <140 mg/dL before meals <180 mg/dL all other times of the day Blood specimen (specimen) 07/19/2017 4:11 AM EDT 07/19/2017 4:11 AM EDT Sriram Contreras MD POINT OF CARE TEST ORDERABLES Performing Organization Address City/[facility]/ZIP Co de Phone Number [facility] [address] * (ABNORMAL) Differential, Automated (07/19/2017 2:30 AM EDT) Neutrophil % 77.9 % [facility] Neutrophil Absolute 9.99(H) 1.70 - 6.10 x10(3)/mc L [facility] Lymph % 9.8 % [facility] Lymphocytes Abs 1.2 0.9 - 3.2 x10(3)/mc L [facility] Monocyte % 11.5 % [facility] Monocyte Abs 1.5(H) 0.3 - 0.9 x10(3)/mc L [facility] Eos % 0.1 % [facility] Eosinophils Abs 0.0 0.0 - 0.4 x10(3)/mc L [facility] Basophil % 0.2 % [facility] Baso Absolute 0.0 0.0 - 0.1 x10(3)/mc L [facility] Immature Gran % 0.50 % [facility] Comment: Immature granulocytes(IG's)percentage and absolute count will include metamyelocytes, myelocytes, and promyelocytes. Blood smears from CBCs yielding IG's will be scanned manually for concordance. If this scan disagrees with the automated IG or if promyelocytes are noted, a manual differential will be performed. Immature Gran Absolute 0.07(H) 0.00 - 0.04 x10(3)/mc L [facility] Blood specimen (specimen) 07/19/2017 2:30 AM EDT 07/19/2017 2:34 AM EDT Narrative Resulting Agency Comment Spec In Lab Sriram Contreras MD HEMATOLOGY ORDERAB LES [facility] [place] [address] * (ABNORMAL) Hemogram (07/19/2017 2:30 AM EDT) White Blood Cell 12.8(H) 4.0 - 9.5 x10(3)/ L [facility] Red Blood Cell 4.30(L) 4.58 - 5.54 x10(6)/mc L [facility] Hemoglobin 13.5(L) 13.7 - 16.5 gm/dL [facility] Hematocrit 38.6(L) 40.5 - 48.5 % [facility] Mean Cell Volume 89.8 82.9 - 93.1 fL [facility] Mean Cell Hemoglobin 31.4 27.5 - 32.1 pg [facility] Mean Cell Hemoglobin Concentration 35.0 32.0 - 35.7 gm/dL [facility] Platelet 176 145 - 357 x10(3)/mc L [facility] RDW Standard Deviation 45.1(H) 36.0 - 45.0 fL [facility] RDW coefficient of variation 13.9(H) 11.4 - 13.8 % [facility] Mean Platelet Volume 9.8 7.6 - 12.9 fL [facility] NRBC% auto 0.0 % [facility] NRBC Absolute 0.000 0.000 - 0.000 x10(3)/mc L [facility] Blood specimen (specimen) 07/19/2017 2:30 AM EDT 07/19/2017 2:34 AM EDT Narrative Resulting Agency Comment Spec In Lab Sriram Contreras MD HEMATOLOGY ORDERAB LES [facility] [place] [address] * (ABNORMAL) Basic Metabolic Panel (non-fasting) (07/19/2017 2:30 AM EDT) Glucose 102 65 - 199 mg/dL [facility] Comment:Diabetes: >=200 mg/d L plus symptoms Blood Urea Nitrogen 23(H) 10 - 20 mg/dL [facility] Creatinine 0.87 0.80 - 1.50 mg/dL [facility] Comment: Please note that the pediatric reference intervals supplied above were not validated at [facility] [place] [place]. Results from pediatric patients should be interpreted in conjunction to the patient's age, height and muscle mass. Sodium 144 135 - 145 mmol/L [facility] Potassium 3.4(L) 3.5 - 5.0 mmol/L [facility] Comment: Please note: ??Patients with WBC >100,000 may have falsely elevated Potassium levels. ??For accurate Potassium quantification in these patients send serum separator tube (gold top) for subsequent determinations. ??Contact the Clinical Chemistry Laboratory if there are any questions. Chloride 106 98 - 107 mmol/L [facility] Carbon Dioxide 23 22 - 31 mmol/L [facility] Anion Gap 15 5 - 15 mmol/L [facility] Calcium 8.5 8.5 - 10.5 mg/dL [facility] Est Glomerular Filtration Rate >60 >=60 [facility] Comment: This estimated GFR [...] the following links into your internet browser. [email or web address] Blood specimen (specimen) 07/19/2017 2:30 AM EDT 07/19/2017 2:34 AM EDT Narrative Resulting Agency Comment Spec In Lab Sriram Contreras MD CHEMISTRY ORDERABL ES Performing Organization Address [facility] Co de Phone Number [facility] [place] [address] * (ABNORMAL) Prealbumin (07/19/2017 2:30 AM EDT) Prealbumin 17(L) 20 - 40 mg/dL [facility] Comment: Prealbumin levels are generally lower in the pediatric population; adult concentrations are usually attained near puberty. Blood specimen (specimen) 07/19/2017 2:30 AM EDT 07/19/2017 2:34 AM EDT Narrative Resulting Agency Comment Spec In Lab Sriram Contreras MD CHEMISTRY ORDERABL ES Performing Organization Address [facility] Co de Phone Number [facility] [address] * (ABNORMAL) BLOOD GAS 2 ARTERIAL (07/18/2017 11:53 PM EDT) pH, Arterial 7.50(H) 7.35 - 7.45 [facility] PCO2, Arterial 32(L) 35 - 45 mmHg [facility] PO2, Arterial 61(L) 85 - 104 mmHg [facility] Bicarbonate, Arterial 24.5 20.0 - 26.0 mmol/L [facility] Base Excess, Arterial 1.3 -3.0 - 3.0 mmol/L [facility] Hgb Blood Gas 14.1 13.7 - 16.5 gm/dL [facility] Oxyhemoglobin, Arterial 90.9(L) 94.0 - 97.0 % [facility] Carboxyhemoglob in, Arterial 0.3 % [facility] Comment: Nonsmokers: 0.5-1.5% COHB Smokers: Variable, but usually less than 10% Toxic: 20-30% COHB Lethal: Greater than 60% COHB Methemoglobin, Arterial 0.7 <=1.5 % [facility] Na Whole Blood 144 135 - 145 mmol/L [facility] K Whole Blood 3.3(L) 3.5 - 5.0 mmol/L [facility] Comment: Please note: Patients with WBC >100,000 may have falsely elevated Potassium levels. Contact the Clinical Chemistry Laboratory if there are any questions. ICa Whole Blood 1.17 1.15 - 1.33 mmol/L [facility] Comment: Note: ??Total bilirubin higher than 20 mg/dL may lead to falsely low ionized calcium. CL Whole Blood 109(H) 98 - 107 mmol/L [facility] Gluc Whole Bld 104 65 - 199 mg/dL [facility] Comment:Diabetes: >=200 mg/d L plus symptoms. Lactate WB 1.3 0.5 - 2.2 mmol/L [facility] FIO2 Art 45 % [facility] PF Ratio Art 136 [facility] Blood specimen (specimen) 07/18/2017 11:53 PM EDT 07/18/2017 11:53 PM EDT Sriram Contreras MD POINT OF CARE TEST ORDERABLES [facility] [place] [address] * POCT Glucose (07/18/2017 11:49 PM EDT) Glucose, POC 102 65 - 199 mg/dL [facility] Comment: Supplemental ranges: <140 mg/dL before meals <180 mg/dL all other times of the day Blood specimen (specimen) 07/18/2017 11:49 PM EDT 07/18/2017 11:49 PM EDT Sriram Contreras MD POINT OF CARE TEST ORDERABLES [facility] [place] [address] * POCT Glucose (07/18/2017 8:44 PM EDT) Glucose, POC 108 65 - 199 mg/dL [facility] Comment: Supplemental ranges: <140 mg/dL before meals <180 mg/dL all other times of the day Blood specimen (specimen) 07/18/2017 8:44 PM EDT 07/18/2017 8:44 PM EDT Sriram Contreras MD POINT OF CARE TEST ORDERABLES [facility] [place] [address] * (ABNORMAL) BLOOD GAS 2 ARTERIAL (07/18/2017 5:22 PM EDT) pH, Arterial 7.54(H) 7.35 - 7.45 [facility] PCO2, Arterial 31(L) 35 - 45 mmHg [facility] PO2, Arterial 55(L) 85 - 104 mmHg [facility] Bicarbonate, Arterial 25.9 20.0 - 26.0 mmol/L [facility] Base Excess, Arterial 3.3(H) -3.0 - 3.0 mmol/L [facility] Hgb Blood Gas 14.2 13.7 - 16.5 gm/dL [facility] Oxyhemoglobin, Arterial 90.3(L) 94.0 - 97.0 % [facility] Carboxyhemoglob in, Arterial 0.3 % [facility] Comment: Nonsmokers: 0.5-1.5% COHB Smokers: Variable, but usually less than 10% Toxic: 20-30% COHB Lethal: Greater than 60% COHB Methemoglobin, Arterial 0.5 <=1.5 % [facility] Na Whole Blood 144 135 - 145 mmol/L [facility] K Whole Blood 3.3(L) 3.5 - 5.0 mmol/L [facility] Comment: Please note: Patients with WBC >100,000 may have falsely elevated Potassium levels. Contact the Clinical Chemistry Laboratory if there are any questions. ICa Whole Blood 1.18 1.15 - 1.33 mmol/L [facility] Comment: Note: ??Total bilirubin higher than 20 mg/dL may lead to falsely low ionized calcium. CL Whole Blood 108(H) 98 - 107 mmol/L [facility] Gluc Whole Bld 130 65 - 199 mg/dL [facility] Comment:Diabetes: >=200 mg/d L plus symptoms. Lactate WB 1.6 0.5 - 2.2 mmol/L [facility] FIO2 Art 40 % [facility] PF Ratio Art 138 [facility] Blood specimen (specimen) 07/18/2017 5:22 PM EDT 07/18/2017 5:22 PM EDT Sriram Contreras MD POINT OF CARE TEST ORDERABLES [facility] [place] [address] * POCT Glucose (07/18/2017 3:42 PM EDT) Glucose, POC 119 65 - 199 mg/dL [facility] Comment: Supplemental ranges: <140 mg/dL before meals <180 mg/dL all other times of the day Blood specimen (specimen) 07/18/2017 3:42 PM EDT 07/18/2017 3:42 PM EDT Sriram Contreras MD POINT OF CARE TEST ORDERABLES Performing Organization Address City/[facility] Co de Phone Number [facility] [place] [address] * POCT Glucose (07/18/2017 1:05 PM EDT) Glucose, POC 118 65 - 199 mg/dL [facility] Comment: Supplemental ranges: <140 mg/dL before meals <180 mg/dL all other times of the day Blood specimen (specimen) 07/18/2017 1:05 PM EDT 07/18/2017 1:05 PM EDT Sriram Contreras MD POINT OF CARE TEST ORDERABLES Performing Organization Address City/[facility] Co de Phone Number [facility] [place] [address] * (ABNORMAL) BLOOD GAS 2 ARTERIAL (07/18/2017 11:47 AM EDT) pH, Arterial 7.51(H) 7.35 - 7.45 [facility] PCO2, Arterial 33(L) 35 - 45 mmHg [facility] PO2, Arterial 94 85 - 104 mmHg [facility] Bicarbonate, Arterial 25.1 20.0 - 26.0 mmol/L [facility] Base Excess, Arterial 2.0 -3.0 - 3.0 mmol/L [facility] Hgb Blood Gas 14.4 13.7 - 16.5 gm/dL [facility] Oxyhemoglobin, Arterial 96.1 94.0 - 97.0 % [facility] Carboxyhemoglob in, Arterial 0.3 % [facility] Comment: Nonsmokers: 0.5-1.5% COHB Smokers: Variable, but usually less than 10% Toxic: 20-30% COHB Lethal: Greater than 60% COHB Methemoglobin, Arterial 0.6 <=1.5 % [facility] Na Whole Blood 141 135 - 145 mmol/L [facility] K Whole Blood 3.6 3.5 - 5.0 mmol/L [facility] Comment: Please note: Patients with WBC >100,000 may have falsely elevated Potassium levels. Contact the Clinical Chemistry Laboratory if there are any questions. ICa Whole Blood 1.17 1.15 - 1.33 mmol/L [facility] Comment: Note: ??Total bilirubin higher than 20 mg/dL may lead to falsely low ionized calcium. CL Whole Blood 104 98 - 107 mmol/L [facility] Gluc Whole Bld 228(H) 65 - 199 mg/dL [facility] Comment:Diabetes: >=200 mg/d L plus symptoms. Lactate WB 1.7 0.5 - 2.2 mmol/L [facility] FIO2 Art 50 % [facility] PF Ratio Art 188 [facility] Blood specimen (specimen) 07/18/2017 11:47 AM EDT 07/18/2017 11:47 AM EDT Sriram Contreras MD POINT OF CARE TEST ORDERABLES Performing Organization Address City/State/[facility] Co de Phone Number [facility] [place] [address] * (ABNORMAL) BLOOD GAS 2 ARTERIAL (07/18/2017 7:56 AM EDT) pH, Arterial 7.50(H) 7.35 - 7.45 [facility] PCO2, Arterial 31(L) 35 - 45 mmHg [facility] PO2, Arterial 82(L) 85 - 104 mmHg [facility] Bicarbonate, Arterial 24.2 20.0 - 26.0 mmol/L [facility] Base Excess, Arterial 1.0 -3.0 - 3.0 mmol/L [facility] Hgb Blood Gas 13.4(L) 13.7 - 16.5 gm/dL [facility] Oxyhemoglobin, Arterial 95.3 94.0 - 97.0 % [facility] Carboxyhemoglob in, Arterial 0.3 % [facility] Comment: Nonsmokers: 0.5-1.5% COHB Smokers: Variable, but usually less than 10% Toxic: 20-30% COHB Lethal: Greater than 60% COHB Methemoglobin, Arterial 0.5 <=1.5 % [facility] Na Whole Blood 143 135 - 145 mmol/L [facility] K Whole Blood 3.7 3.5 - 5.0 mmol/L [facility] Comment: Please note: Patients with WBC >100,000 may have falsely elevated Potassium levels. Contact the Clinical Chemistry Laboratory if there are any questions. ICa Whole Blood 1.17 1.15 - 1.33 mmol/L [facility] Comment: Note: ??Total bilirubin higher than 20 mg/dL may lead to falsely low ionized calcium. CL Whole Blood 106 98 - 107 mmol/L [facility] Gluc Whole Bld 158 65 - 199 mg/dL [facility] Comment:Diabetes: >=200 mg/d L plus symptoms. Lactate WB 2.5(H) 0.5 - 2.2 mmol/L [facility] FIO2 Art 60 % [facility] PF Ratio Art 137 [facility] Blood specimen (specimen) 07/18/2017 7:56 AM EDT 07/18/2017 7:56 AM EDT Sriram Contreras MD POINT OF CARE TEST ORDERABLES [facility] [place] [address] * (ABNORMAL) BLOOD GAS 2 ARTERIAL (07/18/2017 3:55 AM EDT) pH, Arterial 7.51(H) 7.35 - 7.45 [facility] PCO2, Arterial 34(L) 35 - 45 mmHg [facility] PO2, Arterial 95 85 - 104 mmHg [facility] Bicarbonate, Arterial 26.4(H) 20.0 - 26.0 mmol/L [facility] Base Excess, Arterial 3.4(H) -3.0 - 3.0 mmol/L [facility] Hgb Blood Gas 14.2 13.7 - 16.5 gm/dL [facility] Oxyhemoglobin, Arterial 96.4 94.0 - 97.0 % [facility] Carboxyhemoglob in, Arterial 0.5 % [facility] Comment: Nonsmokers: 0.5-1.5% COHB Smokers: Variable, but usually less than 10% Toxic: 20-30% COHB Lethal: Greater than 60% COHB Methemoglobin, Arterial 0.6 <=1.5 % [facility] Na Whole Blood 142 135 - 145 mmol/L [facility] K Whole Blood 3.6 3.5 - 5.0 mmol/L [facility] Comment: Please note: Patients with WBC >100,000 may have falsely elevated Potassium levels. Contact the Clinical Chemistry Laboratory if there are any questions. ICa Whole Blood 1.17 1.15 - 1.33 mmol/L [facility] Comment: Note: ??Total bilirubin higher than 20 mg/dL may lead to falsely low ionized calcium. CL Whole Blood 105 98 - 107 mmol/L [facility] Gluc Whole Bld 178 65 - 199 mg/dL [facility] Comment:Diabetes: >=200 mg/d L plus symptoms. Lactate WB 3.0(H) 0.5 - 2.2 mmol/L [facility] FIO2 Art 70 % [facility] PF Ratio Art 136 [facility] Blood specimen (specimen) 07/18/2017 3:55 AM EDT 07/18/2017 3:55 AM EDT Sriram Contreras MD POINT OF CARE TEST ORDERABLES [facility] [place] [address] * (ABNORMAL) POCT Glucose (07/18/2017 3:42 AM EDT) [facility] Glucose, POC 205(H) 65 - 199 mg/dL [facility] Comment: Supplemental ranges: <140 mg/dL before meals <180 mg/dL all other times of the day Blood specimen (specimen) 07/18/2017 3:42 AM EDT 07/18/2017 3:42 AM EDT Sriram Contreras MD POINT OF CARE TEST ORDERABLES Performing Organization Address [facility] Co de Phone Number [facility] [place] [address] * (ABNORMAL) Magnesium (07/18/2017 2:20 AM EDT) [facility] Magnesium 1.09(H) 0.69 - 1.07 mmol/L [facility] Blood specimen (specimen) Venous Draw / Unknown 07/18/2017 2:20 AM EDT 07/18/2017 2:31 AM EDT Narrative Resulting Agency Comment Spec In Lab Sriram Contreras MD CHEMISTRY ORDERABL ES Performing Organization Address City/[facility]/ZIP Co de Phone Number [facility] [address] * (ABNORMAL) Differential, Automated (07/18/2017 2:20 AM EDT) [facility] Neutrophil % 86.8 % [facility] Neutrophil Absolute 9.28(H) 1.70 - 6.10 x10(3)/mc L [facility] Lymph % 5.8 % [facility] Lymphocytes Abs 0.6(L) 0.9 - 3.2 x10(3)/mc L [facility] Monocyte % 6.5 % [facility] Monocyte Abs 0.7 0.3 - 0.9 x10(3)/mc L [facility] Eos % 0.0 % [facility] Eosinophils Abs 0.0 0.0 - 0.4 x10(3)/[facility] Basophil % 0.2 % [facility] Baso Absolute 0.0 0.0 - 0.1 x10(3)/[facility] Immature Gran % 0.70 % [facility] Comment: Immature granulocytes(IG's)percentage and absolute count will include metamyelocytes, myelocytes, and promyelocytes. Blood smears from CBCs yielding IG's will be scanned manually for concordance. If this scan disagrees with the automated IG or if promyelocytes are noted, a manual differential will be performed. Immature Gran Absolute 0.08(H) 0.00 - 0.04 x10(3)/[facility] Blood specimen (specimen) 07/18/2017 2:20 AM EDT 07/18/2017 2:28 AM EDT Narrative Resulting Agency Comment Spec In Lab Sriram Contreras MD HEMATOLOGY ORDERAB LES [facility] [place] [address] * (ABNORMAL) Hemogram (07/18/2017 2:20 AM EDT) White Blood Cell 10.7(H) 4.0 - 9.5 x10(3)/[facility] Red Blood Cell 4.39(L) 4.58 - 5.54 x10(6)/[facility] Hemoglobin 13.6(L) 13.7 - 16.5 gm/dL [facility] Hematocrit 38.8(L) 40.5 - 48.5 % [facility] Mean Cell Volume 88.4 82.9 - 93.1 fL [facility] Mean Cell Hemoglobin 31.0 27.5 - 32.1 pg [facility] Mean Cell Hemoglobin Concentration 35.1 32.0 - 35.7 gm/dL [facility] Platelet 147 145 - 357 x10(3)/mc L [facility] RDW Standard Deviation 43.4 36.0 - 45.0 fL [facility] RDW coefficient of variation 13.3 11.4 - 13.8 % [facility] Mean Platelet Volume 10.9 7.6 - 12.9 fL [facility] NRBC% auto 0.0 % [facility] NRBC Absolute 0.000 0.000 - 0.000 x10(3)/mc L [facility] Blood specimen (specimen) 07/18/2017 2:20 AM EDT 07/18/2017 2:28 AM EDT Narrative Resulting Agency Comment Spec In Lab Sriram Contreras MD HEMATOLOGY ORDERAB LES Performing Organization Address City/State/[facility] Co de Phone Number [facility] [place] [address] * (ABNORMAL) Basic Metabolic Panel (non-fasting) (07/18/2017 2:20 AM EDT) Glucose 181 65 - 199 mg/dL [facility] Comment:Diabetes: >=200 mg/d L plus symptoms Blood Urea Nitrogen 22(H) 10 - 20 mg/dL [facility] Creatinine 0.74(L) 0.80 - 1.50 mg/dL [facility] Comment: Please note that the pediatric reference intervals supplied above were not validated at [facility] [place] [place]. Results from pediatric patients should be interpreted in conjunction to the patient's age, height and muscle mass. Sodium 145 135 - 145 mmol/L [facility] Potassium 3.7 3.5 - 5.0 mmol/L [facility] Comment: Please note: ??Patients with WBC >100,000 may have falsely elevated Potassium levels. ??For accurate Potassium quantification in these patients send serum separator tube (gold top) for subsequent determinations. ??Contact the Clinical Chemistry Laboratory if there are any questions. Chloride 105 98 - 107 mmol/L [facility] Carbon Dioxide 25 22 - 31 mmol/L [facility] Anion Gap 15 5 - 15 mmol/L [facility] Calcium 8.8 8.5 - 10.5 mg/dL [facility] Est Glomerular Filtration Rate >60 >=60 [facility] Comment: This estimated GFR [...] the following links into your internet browser. [email or web address] Blood specimen (specimen) 07/18/2017 2:20 AM EDT 07/18/2017 2:28 AM EDT Narrative Resulting Agency Comment Spec In Lab Sriram Contreras MD CHEMISTRY ORDERABL ES [facility] [place] [address] * (ABNORMAL) BLOOD GAS 2 ARTERIAL (07/17/2017 11:36 PM EDT) pH, Arterial 7.51(H) 7.35 - 7.45 [facility] PCO2, Arterial 32(L) 35 - 45 mmHg [facility] PO2, Arterial 60(L) 85 - 104 mmHg [facility] Bicarbonate, Arterial 25.0 20.0 - 26.0 mmol/L [facility] Base Excess, Arterial 2.0 -3.0 - 3.0 mmol/L [facility] Hgb Blood Gas 14.8 13.7 - 16.5 gm/dL [facility] Oxyhemoglobin, Arterial 92.1(L) 94.0 - 97.0 % [facility] Carboxyhemoglob in, Arterial 0.3 % [facility] Comment: Nonsmokers: 0.5-1.5% COHB Smokers: Variable, but usually less than 10% Toxic: 20-30% COHB Lethal: Greater than 60% COHB Methemoglobin, Arterial 0.5 <=1.5 % [facility] Na Whole Blood 143 135 - 145 mmol/L [facility] K Whole Blood 3.7 3.5 - 5.0 mmol/L [facility] Comment: Please note: Patients with WBC >100,000 may have falsely elevated Potassium levels. Contact the Clinical Chemistry Laboratory if there are any questions. ICa Whole Blood 1.16 1.15 - 1.33 mmol/L [facility] Comment: Note: ??Total bilirubin higher than 20 mg/dL may lead to falsely low ionized calcium. CL Whole Blood 104 98 - 107 mmol/L [facility] Gluc Whole Bld 202(H) 65 - 199 mg/dL [facility] Comment:Diabetes: >=200 mg/d L plus symptoms. Lactate WB 2.9(H) 0.5 - 2.2 mmol/L [facility] FIO2 Art 60 % [facility] PF Ratio Art 100 [facility] Blood specimen (specimen) 07/17/2017 11:36 PM EDT 07/17/2017 11:36 PM EDT Sriram Contreras MD POINT OF CARE TEST ORDERABLES [facility] [place] [address] * (ABNORMAL) POCT Glucose (07/17/2017 11:34 PM EDT) Glucose, POC 202(H) 65 - 199 mg/dL [facility] Comment: Supplemental ranges: <140 mg/dL before meals <180 mg/dL all other times of the day Blood specimen (specimen) 07/17/2017 11:34 PM EDT 07/17/2017 11:34 PM EDT Sriram Contreras MD POINT OF CARE TEST ORDERABLES Performing Organization Address City/[facility]/ZIP Co de Phone Number [facility] [address] * Magnesium (07/17/2017 10:10 PM EDT) Pathologist [facility] [place] Magnesium 0.87 0.69 - 1.07 mmol/L [facility] Blood specimen (specimen) 07/17/2017 10:10 PM EDT 07/17/2017 10:18 PM EDT Narrative Resulting Agency Comment Spec In Lab Sriram Contreras MD CHEMISTRY ORDERABL ES Performing Organization Address [facility] Co de Phone Number [facility] [address] * (ABNORMAL) BLOOD GAS 2 ARTERIAL (07/17/2017 7:51 PM EDT) pH, Arterial 7.49(H) 7.35 - 7.45 [facility] PCO2, Arterial 36 35 - 45 mmHg [facility] PO2, Arterial 67(L) 85 - 104 mmHg [facility] Bicarbonate, Arterial 26.8(H) 20.0 - 26.0 mmol/L [facility] Base Excess, Arterial 3.4(H) -3.0 - 3.0 mmol/L [facility] Hgb Blood Gas 14.3 13.7 - 16.5 gm/dL [facility] Oxyhemoglobin, Arterial 93.4(L) 94.0 - 97.0 % [facility] Carboxyhemoglob in, Arterial 0.3 % [facility] Comment: Nonsmokers: 0.5-1.5% COHB Smokers: Variable, but usually less than 10% Toxic: 20-30% COHB Lethal: Greater than 60% COHB Methemoglobin, Arterial 0.6 <=1.5 % [facility] Na Whole Blood 143 135 - 145 mmol/L [facility] K Whole Blood 3.7 3.5 - 5.0 mmol/L [facility] Comment: Please note: Patients with WBC >100,000 may have falsely elevated Potassium levels. Contact the Clinical Chemistry Laboratory if there are any questions. ICa Whole Blood 1.17 1.15 - 1.33 mmol/L [facility] Comment: Note: ??Total bilirubin higher than 20 mg/dL may lead to falsely low ionized calcium. CL Whole Blood 106 98 - 107 mmol/L [facility] Gluc Whole Bld 178 65 - 199 mg/dL [facility] Comment:Diabetes: >=200 mg/d L plus symptoms. Lactate WB 2.8(H) 0.5 - 2.2 mmol/L [facility] FIO2 Art 60 % [facility] PF Ratio Art 112 [facility] Blood specimen (specimen) 07/17/2017 7:51 PM EDT 07/17/2017 7:51 PM EDT Sriram Contreras MD POINT OF CARE TEST ORDERABLES Performing Organization Address City/[facility]/ZIP Co de Phone Number [facility] [address] * POCT Glucose (07/17/2017 7:50 PM EDT) Glucose, POC 153 65 - 199 mg/dL [facility] Comment: Supplemental ranges: <140 mg/dL before meals <180 mg/dL all other times of the day Blood specimen (specimen) 07/17/2017 7:50 PM EDT 07/17/2017 7:50 PM EDT Sriram Contreras MD POINT OF CARE TEST ORDERABLES [facility] [place] [address] * (ABNORMAL) BLOOD GAS 2 ARTERIAL (07/17/2017 3:20 PM EDT) pH, Arterial 7.51(H) 7.35 - 7.45 [facility] PCO2, Arterial 31(L) 35 - 45 mmHg [facility] PO2, Arterial 67(L) 85 - 104 mmHg [facility] Bicarbonate, Arterial 24.3 20.0 - 26.0 mmol/L [facility] Base Excess, Arterial 1.3 -3.0 - 3.0 mmol/L [facility] Hgb Blood Gas 14.1 13.7 - 16.5 gm/dL [facility] Oxyhemoglobin, Arterial 93.8(L) 94.0 - 97.0 % [facility] Carboxyhemoglob in, Arterial 0.3 % [facility] Comment: Nonsmokers: 0.5-1.5% COHB Smokers: Variable, but usually less than 10% Toxic: 20-30% COHB Lethal: Greater than 60% COHB Methemoglobin, Arterial 0.5 <=1.5 % [facility] Na Whole Blood 141 135 - 145 mmol/L [facility] K Whole Blood 3.7 3.5 - 5.0 mmol/L [facility] Comment: Please note: Patients with WBC >100,000 may have falsely elevated Potassium levels. Contact the Clinical Chemistry Laboratory if there are any questions. ICa Whole Blood 1.15(L) 1.15 - 1.33 mmol/L [facility] Comment: Note: ??Total bilirubin higher than 20 mg/dL may lead to falsely low ionized calcium. CL Whole Blood 105 98 - 107 mmol/L [facility] Gluc Whole Bld 204(H) 65 - 199 mg/dL [facility] Comment:Diabetes: >=200 mg/d L plus symptoms. Lactate WB 2.0 0.5 - 2.2 mmol/L [facility] FIO2 Art 50 % [facility] PF Ratio Art 134 [facility] Blood specimen (specimen) 07/17/2017 3:20 PM EDT 07/17/2017 3:20 PM EDT Sriram Contreras MD POINT OF CARE TEST ORDERABLES [facility] [place] [address] * (ABNORMAL) BLOOD GAS 2 ARTERIAL (07/17/2017 12:50 PM EDT) pH, Arterial 7.51(H) 7.35 - 7.45 [facility] PCO2, Arterial 30(L) 35 - 45 mmHg [facility] PO2, Arterial 52(L) 85 - 104 mmHg [facility] Bicarbonate, Arterial 23.7 20.0 - 26.0 mmol/L [facility] Base Excess, Arterial 0.8 -3.0 - 3.0 mmol/L [facility] Hgb Blood Gas 14.0 13.7 - 16.5 gm/dL [facility] Oxyhemoglobin, Arterial 89.4(L) 94.0 - 97.0 % [facility] Carboxyhemoglob in, Arterial 0.3 % [facility] Comment: Nonsmokers: 0.5-1.5% COHB Smokers: Variable, but usually less than 10% Toxic: 20-30% COHB Lethal: Greater than 60% COHB Methemoglobin, Arterial 0.5 <=1.5 % [facility] Na Whole Blood 140 135 - 145 mmol/L [facility] K Whole Blood 3.9 3.5 - 5.0 mmol/L [facility] Comment: Please note: Patients with WBC >100,000 may have falsely elevated Potassium levels. Contact the Clinical Chemistry Laboratory if there are any questions. ICa Whole Blood 1.18 1.15 - 1.33 mmol/L [facility] Comment: Note: ??Total bilirubin higher than 20 mg/dL may lead to falsely low ionized calcium. CL Whole Blood 106 98 - 107 mmol/L [facility] Gluc Whole Bld 195 65 - 199 mg/dL [facility] Comment:Diabetes: >=200 mg/d L plus symptoms. Lactate WB 2.3(H) 0.5 - 2.2 mmol/L [facility] FIO2 Art 50 % [facility] PF Ratio Art 104 [facility] Blood specimen (specimen) 07/17/2017 12:50 PM EDT 07/17/2017 12:50 PM EDT Sriram Contreras MD POINT OF CARE TEST ORDERABLES [facility] [place] [address] * XR Chest PA or AP 1 [...] EDT) pH, Arterial 7.48(H) 7.35 - 7.45 [facility] PCO2, Arterial 34(L) 35 - 45 mmHg [facility] PO2, Arterial 55(L) 85 - 104 mmHg [facility] Bicarbonate, Arterial 24.7 20.0 - 26.0 mmol/L [facility] Base Excess, Arterial 1.2 -3.0 - 3.0 mmol/L [facility] Hgb Blood Gas 14.1 13.7 - 16.5 gm/dL [facility] Oxyhemoglobin, Arterial 90.4(L) 94.0 - 97.0 % [facility] Carboxyhemoglob in, Arterial 0.1 % [facility] Comment: Nonsmokers: 0.5-1.5% COHB Smokers: Variable, but usually less than 10% Toxic: 20-30% COHB Lethal: Greater than 60% COHB Methemoglobin, Arterial 0.7 <=1.5 % [facility] Na Whole Blood 141 135 - 145 mmol/L [facility] K Whole Blood 4.2 3.5 - 5.0 mmol/L [facility] Comment: Please note: Patients with WBC >100,000 may have falsely elevated Potassium levels. Contact the Clinical Chemistry Laboratory if there are any questions. ICa Whole Blood 1.18 1.15 - 1.33 mmol/L [facility] Comment: Note: ??Total bilirubin higher than 20 mg/dL may lead to falsely low ionized calcium. CL Whole Blood 106 98 - 107 mmol/L [facility] Gluc Whole Bld 194 65 - 199 mg/dL [facility] Comment:Diabetes: >=200 mg/d L plus symptoms. Lactate WB 2.6(H) 0.5 - 2.2 mmol/L [facility] FIO2 Art 40 % [facility] PF Ratio Art 138 [facility] Blood specimen (specimen) 07/17/2017 11:54 AM EDT 07/17/2017 11:54 AM EDT Sriram Contreras MD POINT OF CARE TEST ORDERABLES Performing Organization Address City/State/[facility] Co de Phone Number [facility] [place] [address] * Cardiac Enzymes (07/17/2017 5:42 AM EDT) Troponin-T <0.01 0.00 - 0.00 ng/mL [facility] Comment: The 99th percentile for Troponin T is less than 0.01 ng/mL, any detectable cTnT concentration using this assay should be considered elevated. According to the third universal definition of myocardial infarction the following criteria with a clinical presentation consistent with acute myocardial ischemia meets the diagnosis for a myocardial infarction (AK). Detection of a rise and/or fall of cTnT, with at least one value greater than the 99th percentile (> or = 0.01) and with at least one of the following ?? Symptoms of ischemia ?? New or presumed new significant BV-pnrlnam-T wave (ST-T) changes or new left bundle [...] additional sample may be indicated. Reference: Third [place] Definition of Myocardial Infarction. Journal of [employer] [place] [employer] 2012;60:1581-98 Creatine Kinase 47 0 - 200 unit/L [facility] Blood specimen (specimen) 07/17/2017 5:42 AM EDT 07/17/2017 5:42 AM EDT Narrative Resulting Agency Comment Spec In Lab Sriram Contreras MD CHEMISTRY ORDERABL ES [facility] [place] [address] * (ABNORMAL) Differential, Automated (07/17/2017 12:30 AM EDT) Neutrophil % 90.5 % [facility] Neutrophil Absolute 8.62(H) 1.70 - 6.10 x10(3)/mc L [facility] Lymph % 3.7 % [facility] Lymphocytes Abs 0.4(L) 0.9 - 3.2 x10(3)/mc L [facility] Monocyte % 4.9 % [facility] Monocyte Abs 0.5 0.3 - 0.9 x10(3)/mc L [facility] Eos % 0.0 % [facility] Eosinophils Abs 0.0 0.0 - 0.4 x10(3)/mc L [facility] Basophil % 0.1 % [facility] Baso Absolute 0.0 0.0 - 0.1 x10(3)/mc L [facility] Immature Gran % 0.80 % [facility] Comment: Immature granulocytes(IG's)percentage and absolute count will include metamyelocytes, myelocytes, and promyelocytes. Blood smears from CBCs yielding IG's will be scanned manually for concordance. If this scan disagrees with the automated IG or if promyelocytes are noted, a manual differential will be performed. Immature Gran Absolute 0.08(H) 0.00 - 0.04 x10(3)/ L [facility] Blood specimen (specimen) 07/17/2017 12:30 AM EDT 07/17/2017 1:13 AM EDT Narrative Resulting Agency Comment Spec In Lab Sriram Contreras MD HEMATOLOGY ORDERAB LES Performing Organization Address City/State/[facility] Co de Phone Number [facility] [address] * (ABNORMAL) Hemogram (07/17/2017 12:30 AM EDT) White Blood Cell 9.5 4.0 - 9.5 x10(3)/[facility] Red Blood Cell 3.98(L) 4.58 - 5.54 x10(6)/[facility] Hemoglobin 12.4(L) 13.7 - 16.5 gm/dL [facility] Hematocrit 36.7(L) 40.5 - 48.5 % [facility] Mean Cell Volume 92.2 82.9 - 93.1 [facility] Mean Cell Hemoglobin 31.2 27.5 - 32.1 pg [facility] Mean Cell Hemoglobin Concentration 33.8 32.0 - 35.7 gm/dL [facility] Platelet 133(L) 145 - 357 x10(3)/[facility] RDW Standard Deviation 47.7(H) 36.0 - 45.0 [facility] RDW coefficient of variation 13.8 11.4 - 13.8 % [facility] Mean Platelet Volume 10.9 7.6 - 12.9 [facility] NRBC% auto 0.0 % [facility] NRBC Absolute 0.000 0.000 - 0.000 x10(3)/[facility] Blood specimen (specimen) 07/17/2017 12:30 AM EDT 07/17/2017 1:13 AM EDT Narrative Resulting Agency Comment Spec In Lab Sriram Contreras MD HEMATOLOGY ORDERAB LES [facility] [address] * (ABNORMAL) Basic Metabolic Panel (non-fasting) (07/17/2017 12:30 AM EDT) Glucose 246(H) 65 - 199 mg/dL [facility] Comment:Diabetes: >=200 mg/d L plus symptoms Blood Urea Nitrogen 17 10 - 20 mg/dL [facility] Creatinine 0.73(L) 0.80 - 1.50 mg/dL [facility] Comment: Please note that the pediatric reference intervals supplied above were not validated at [facility] [place] [place]. Results from pediatric patients should be interpreted in conjunction to the patient's age, height and muscle mass. Sodium 137 135 - 145 mmol/L [facility] Potassium 4.7 3.5 - 5.0 mmol/L [facility] Comment: Please note: ??Patients with WBC >100,000 may have falsely elevated Potassium levels. ??For accurate Potassium quantification in these patients send serum separator tube (gold top) for subsequent determinations. ??Contact the Clinical Chemistry Laboratory if there are any questions. Chloride 103 98 - 107 mmol/L [facility] Carbon Dioxide 21(L) 22 - 31 mmol/L [facility] Anion Gap 13 5 - 15 mmol/L [facility] Calcium 8.3(L) 8.5 - 10.5 mg/dL [facility] Est Glomerular Filtration Rate >60 >=60 [facility] Comment: This estimated GFR [...] the following links into your internet browser. [email or web address] Blood specimen (specimen) 07/17/2017 12:30 AM EDT 07/17/2017 1:13 AM EDT Narrative Resulting Agency Comment Spec In Lab Sriram Contreras MD CHEMISTRY ORDERABL ES [facility] [place] [address] * Cardiac Enzymes (07/17/2017 12:30 AM EDT) Troponin-T <0.01 0.00 - 0.00 ng/mL [facility] Comment: The 99th percentile for Troponin T is less than 0.01 ng/mL, any detectable cTnT concentration using this assay should be considered elevated. According to the third universal definition of myocardial infarction the following criteria with a clinical presentation consistent with acute myocardial ischemia meets the diagnosis for a myocardial infarction (AK). Detection of a rise and/or fall of cTnT, with at least one value greater than the 99th percentile (> or = 0.01) and with at least one of the following ?? Symptoms of ischemia ?? New or presumed new significant HJ-eofekqg-S wave (ST-T) changes or new left bundle [...] additional sample may be indicated. Reference: Third [place] Definition of Myocardial Infarction. Journal of the [place] [employer] 2012;60:1581-98 Creatine Kinase 60 0 - 200 unit/L [facility] Blood specimen (specimen) 07/17/2017 12:30 AM EDT 07/17/2017 1:13 AM EDT Narrative Resulting Agency Comment Spec In Lab Sriram Contreras MD CHEMISTRY ORDERABL ES [facility] [place] [address] * XR Chest PA or AP 1 [...] volumes with atelectasis and pulmonary edema. Sriram Cotnreras MD IMG DX ORDERABLES * Cardiac Enzymes (07/16/2017 5:10 PM EDT) Troponin-T <0.01 0.00 - 0.00 ng/mL [facility] Comment: The 99th percentile for Troponin T is less than 0.01 ng/mL, any detectable cTnT concentration using this assay should be considered elevated. According to the third universal definition of myocardial infarction the following criteria with a clinical presentation consistent with acute myocardial ischemia meets the diagnosis for a myocardial infarction (AK). Detection of a rise and/or fall of cTnT, with at least one value greater than the 99th percentile (> or = 0.01) and with at least one of the following ?? Symptoms of ischemia ?? New or presumed new significant II-dnoemwy-K wave (ST-T) changes or new left bundle [...] additional sample may be indicated. Reference: Third [place] Definition of Myocardial Infarction. Journal of the [place] [employer] 2012;60:1581-98 Creatine Kinase 63 0 - 200 unit/L [facility] Blood specimen (specimen) 07/16/2017 5:10 PM EDT 07/16/2017 5:20 PM EDT Narrative Resulting Agency Comment Spec In Lab Sriram Contreras MD CHEMISTRY ORDERABL ES [facility] [place] [address] * EKG 12 Lead (07/16/2017 4:46 PM EDT) Ventricular rate 70 BPM MUSE SYSTEM Atrial Rate 70 BPM MUSE SYSTEM P-R Interval 208 ms MUSE SYSTEM QRS Duration 96 ms MUSE SYSTEM Q-T Interval 404 ms MUSE SYSTEM QTC Calculated (Bezet) 436 ms MUSE SYSTEM Calculated P [employer] 57 degrees MUSE SYSTEM Calculated R [employer] 54 degrees MUSE SYSTEM Calculated T [employer] 50 degrees MUSE SYSTEM INTERPRETATION Sinus rhythm with frequent Premature ventricular complexes in a pattern of bigeminy Otherwise normal ECG Confirmed by MD Ace, Hilton ([id number]) on 07/17/2017 2:06:02 PM MUSE SYSTEM 07/16/2017 4:46 PM EDT 07/17/2017 2:06 PM EDT Sriram Contreras MD ECG ORDERABLES MUSE SYSTEM * Magnesium (07/16/2017 4:00 AM EDT) Magnesium 0.82 0.69 - 1.07 mmol/L [facility] Blood specimen (specimen) Venous Draw / Unknown 07/16/2017 4:00 AM EDT 07/16/2017 4:18 AM EDT Narrative Resulting Agency Comment Spec In Lab Sriram Contreras MD CHEMISTRY ORDERABL ES Performing Organization Address City/[facility]/ZIP Co de Phone Number [facility] [place] [address] * (ABNORMAL) Differential, Automated (07/16/2017 4:00 AM EDT) Pathologist [facility] Neutrophil % 81.3 % [facility] Neutrophil Absolute 8.31(H) 1.70 - 6.10 x10(3)/mc L [facility] Lymph % 10.7 % [facility] Lymphocytes Abs 1.1 0.9 - 3.2 x10(3)/ L [facility] Monocyte % 6.8 % [facility] Monocyte Abs 0.7 0.3 - 0.9 x10(3)/ L [facility] Eos % 0.3 % [facility] Eosinophils Abs 0.0 0.0 - 0.4 x10(3)/mc L [facility] Basophil % 0.4 % [facility] Baso Absolute 0.0 0.0 - 0.1 x10(3)/mc L [facility] Immature Gran % 0.50 % [facility] Comment: Immature granulocytes(IG's)percentage and absolute count will include metamyelocytes, myelocytes, and promyelocytes. Blood smears from CBCs yielding IG's will be scanned manually for concordance. If this scan disagrees with the automated IG or if promyelocytes are noted, a manual differential will be performed. Immature Gran Absolute 0.05(H) 0.00 - 0.04 x10(3)/ L [facility] Blood specimen (specimen) 07/16/2017 4:00 AM EDT 07/16/2017 4:16 AM EDT Narrative Resulting Agency Comment Spec In Lab Sriram Contreras MD HEMATOLOGY ORDERAB LES Performing Organization Address City/State/[facility] Co de Phone Number [facility] [address] * (ABNORMAL) Hemogram (07/16/2017 4:00 AM EDT) White Blood Cell 10.2(H) 4.0 - 9.5 x10(3)/[facility] Red Blood Cell 3.95(L) 4.58 - 5.54 x10(6)/[facility] Hemoglobin 12.4(L) 13.7 - 16.5 gm/dL [facility] Hematocrit 37.2(L) 40.5 - 48.5 % [facility] Mean Cell Volume 94.2(H) 82.9 - 93.1 fL [facility] Mean Cell Hemoglobin 31.4 27.5 - 32.1 pg [facility] Mean Cell Hemoglobin Concentration 33.3 32.0 - 35.7 gm/dL [facility] Platelet 126(L) 145 - 357 x10(3)/[facility] RDW Standard Deviation 50.0(H) 36.0 - 45.0 [facility] RDW coefficient of variation 14.3(H) 11.4 - 13.8 % [facility] Mean Platelet Volume 10.3 7.6 - 12.9 fL [facility] NRBC% auto 0.0 % [facility] NRBC Absolute 0.000 0.000 - 0.000 x10(3)/[facility] Blood specimen (specimen) 07/16/2017 4:00 AM EDT 07/16/2017 4:16 AM EDT Narrative Resulting Agency Comment Spec In Lab Sriram Contreras MD HEMATOLOGY ORDERAB LES [facility] [address] * (ABNORMAL) Basic Metabolic Panel (non-fasting) (07/16/2017 4:00 AM EDT) Glucose 131 65 - 199 mg/dL [facility] Comment:Diabetes: >=200 mg/d L plus symptoms Blood Urea Nitrogen 16 10 - 20 mg/dL [facility] Creatinine 0.82 0.80 - 1.50 mg/dL [facility] Comment: Please note that the pediatric reference intervals supplied above were not validated at [facility] [place] [place]. Results from pediatric patients should be interpreted in conjunction to the patient's age, height and muscle mass. Sodium 144 135 - 145 mmol/L [facility] Potassium 4.2 3.5 - 5.0 mmol/L [facility] Comment: Please note: ??Patients with WBC >100,000 may have falsely elevated Potassium levels. ??For accurate Potassium quantification in these patients send serum separator tube (gold top) for subsequent determinations. ??Contact the Clinical Chemistry Laboratory if there are any questions. Chloride 106 98 - 107 mmol/L [facility] Carbon Dioxide 21(L) 22 - 31 mmol/L [facility] Anion Gap 17(H) 5 - 15 mmol/L [facility] Calcium 8.1(L) 8.5 - 10.5 mg/dL [facility] Est Glomerular Filtration Rate >60 >=60 [facility] Comment: This estimated GFR [...] the following links into your internet browser. [email or web address] Blood specimen (specimen) 07/16/2017 4:00 AM EDT 07/16/2017 4:16 AM EDT Narrative Resulting Agency Comment Spec In Lab Sriram Contreras MD CHEMISTRY ORDERABL ES Performing Organization Address [facility] Co de Phone Number [facility] [place] [address] * POCT Glucose (07/15/2017 12:26 PM EDT) Glucose, POC 75 65 - 199 mg/dL [facility] Comment: Supplemental ranges: <140 mg/dL before meals <180 mg/dL all other times of the day Blood specimen (specimen) 07/15/2017 12:26 PM EDT 07/15/2017 12:26 PM EDT Sriram Contreras MD POINT OF CARE TEST ORDERABLES Performing Organization Address [facility] de Phone Number [facility] [place] [address] * (ABNORMAL) Basic Metabolic Panel (non-fasting) (07/15/2017 10:20 AM EDT) Glucose 111 65 - 199 mg/dL [facility] Comment:Diabetes: >=200 mg/d L plus symptoms Blood Urea Nitrogen 19 10 - 20 mg/dL [facility] Creatinine 0.96 0.80 - 1.50 mg/dL [facility] Comment: Please note that the pediatric reference intervals supplied above were not validated at [facility] [place] [place]. Results from pediatric patients should be interpreted in conjunction to the patient's age, height and muscle mass. Sodium 143 135 - 145 mmol/L [facility] Potassium 4.0 3.5 - 5.0 mmol/L [facility] Comment: Please note: ??Patients with WBC >100,000 may have falsely elevated Potassium levels. ??For accurate Potassium quantification in these patients send serum separator tube (gold top) for subsequent determinations. ??Contact the Clinical Chemistry Laboratory if there are any questions. Chloride 107 98 - 107 mmol/L [facility] Carbon Dioxide 22 22 - 31 mmol/L [facility] Anion Gap 14 5 - 15 mmol/L [facility] Calcium 8.2(L) 8.5 - 10.5 mg/dL [facility] Est Glomerular Filtration Rate >60 >=60 [facility] Comment: This estimated GFR [...] the following links into your internet browser. [email or web address] Blood specimen (specimen) 07/15/2017 10:20 AM EDT 07/15/2017 10:24 AM EDT Narrative Resulting Agency Comment Spec In Lab Sriram Contreras MD CHEMISTRY ORDERABL ES Performing Organization Address [facility]/ZIP Co de Phone Number [facility] [address] * POCT Glucose (07/15/2017 8:30 AM EDT) Glucose, POC 111 65 - 199 mg/dL [facility] Comment: Supplemental ranges: <140 mg/dL before meals <180 mg/dL all other times of the day Blood specimen (specimen) 07/15/2017 8:30 AM EDT 07/15/2017 8:30 AM EDT Sriram Contreras MD POINT OF CARE TEST ORDERABLES [facility] [place] [address] * (ABNORMAL) BLOOD GAS 2 ARTERIAL (07/15/2017 4:17 AM EDT) pH, Arterial 7.38 7.35 - 7.45 [facility] PCO2, Arterial 42 35 - 45 mmHg [facility] PO2, Arterial 61(L) 85 - 104 mmHg [facility] Bicarbonate, Arterial 24.6 20.0 - 26.0 mmol/L [facility] Base Excess, Arterial -0.4 -3.0 - 3.0 mmol/L [facility] Hgb Blood Gas 14.0 13.7 - 16.5 gm/dL [facility] Oxyhemoglobin, Arterial 90.6(L) 94.0 - 97.0 % [facility] Carboxyhemoglob in, Arterial 0.2 % [facility] Comment: Nonsmokers: 0.5-1.5% COHB Smokers: Variable, but usually less than 10% Toxic: 20-30% COHB Lethal: Greater than 60% COHB Methemoglobin, Arterial 0.5 <=1.5 % [facility] Na Whole Blood 139 135 - 145 mmol/L [facility] K Whole Blood 4.1 3.5 - 5.0 mmol/L [facility] Comment: Please note: Patients with WBC >100,000 may have falsely elevated Potassium levels. Contact the Clinical Chemistry Laboratory if there are any questions. ICa Whole Blood 1.19 1.15 - 1.33 mmol/L [facility] Comment: Note: ??Total bilirubin higher than 20 mg/dL may lead to falsely low ionized calcium. CL Whole Blood 106 98 - 107 mmol/L [facility] Gluc Whole Bld 130 65 - 199 mg/dL [facility] Comment:Diabetes: >=200 mg/d L plus symptoms. Lactate WB 1.9 0.5 - 2.2 mmol/L [facility] FIO2 Art 35 % [facility] PF Ratio Art 174 [facility] Blood specimen (specimen) 07/15/2017 4:17 AM EDT 07/15/2017 4:17 AM EDT Sriram Contreras MD POINT OF CARE TEST ORDERABLES [facility] [place] [address] * (ABNORMAL) Differential, Automated (07/15/2017 4:15 AM EDT) Neutrophil % 84.7 % [facility] Neutrophil Absolute 12.39(H) 1.70 - 6.10 x10(3)/ L [facility] Lymph % 6.2 % [facility] Lymphocytes Abs 0.9 0.9 - 3.2 x10(3)/ L [facility] Monocyte % 8.0 % [facility] Monocyte Abs 1.2(H) 0.3 - 0.9 x10(3)/mc L [facility] Eos % 0.0 % [facility] Eosinophils Abs 0.0 0.0 - 0.4 x10(3)/ L [facility] Basophil % 0.1 % [facility] Baso Absolute 0.0 0.0 - 0.1 x10(3)/ L [facility] Immature Gran % 1.00 % [facility] Comment: Immature granulocytes(IG's)percentage and absolute count will include metamyelocytes, myelocytes, and promyelocytes. Blood smears from CBCs yielding IG's will be scanned manually for concordance. If this scan disagrees with the automated IG or if promyelocytes are noted, a manual differential will be performed. Immature Gran Absolute 0.14(H) 0.00 - 0.04 x10(3)/mc L [facility] Blood specimen (specimen) 07/15/2017 4:15 AM EDT 07/15/2017 4:28 AM EDT Narrative Resulting Agency Comment Spec In Lab Sriram Contreras MD HEMATOLOGY ORDERAB LES Performing Organization Address City/[facility]/ZIP Co de Phone Number [facility] [address] * (ABNORMAL) Hemogram (07/15/2017 4:15 AM EDT) White Blood Cell 14.6(H) 4.0 - 9.5 x10(3)/mc L [facility] Red Blood Cell 4.16(L) 4.58 - 5.54 x10(6)/mc L [facility] Hemoglobin 13.0(L) 13.7 - 16.5 gm/dL [facility] Hematocrit 38.9(L) 40.5 - 48.5 % [facility] Mean Cell Volume 93.5(H) 82.9 - 93.1 [facility] Mean Cell Hemoglobin 31.3 27.5 - 32.1 [facility] Mean Cell Hemoglobin Concentration 33.4 32.0 - 35.7 gm/dL [facility] Platelet 135(L) 145 - 357 x10(3)/mc L [facility] RDW Standard Deviation 48.8(H) 36.0 - 45.0 [facility] RDW coefficient of variation 14.2(H) 11.4 - 13.8 % [facility] Mean Platelet Volume 10.0 7.6 - 12.9 [facility] NRBC% auto 0.0 % [facility] NRBC Absolute 0.000 0.000 - 0.000 x10(3)/mc L [facility] Blood specimen (specimen) 07/15/2017 4:15 AM EDT 07/15/2017 4:28 AM EDT Narrative Resulting Agency Comment Spec In Lab Sriram Contreras MD HEMATOLOGY ORDERAB LES Performing Organization Address City/[facility]/ZIP Co de Phone Number [facility] [address] * Potassium (07/14/2017 8:20 PM EDT) Potassium 4.4 3.5 - 5.0 mmol/L [facility] Comment: Please note: ??Patients with [...] MD CHEMISTRY ORDERABL ES Performing Organization Address [facility] de Phone Number [facility] [address] * (ABNORMAL) Magnesium (07/14/2017 8:20 PM EDT) Magnesium 1.08(H) 0.69 - 1.07 mmol/L [facility] Blood specimen (specimen) 07/14/2017 8:20 PM EDT 07/14/2017 8:31 PM EDT Narrative Resulting Agency Comment Spec In Lab Sriram Contreras MD CHEMISTRY ORDERABL ES Performing Organization Address [facility] Co de Phone Number [facility] [address] * Magnesium (07/14/2017 4:30 PM EDT) Magnesium 0.86 0.69 - 1.07 mmol/L [facility] Blood specimen (specimen) 07/14/2017 4:30 PM EDT 07/14/2017 4:50 PM EDT Narrative Resulting Agency Comment Spec In Lab Sriram Contreras MD CHEMISTRY ORDERABL ES Performing Organization Address [facility] Co de Phone Number [facility] [address] * POCT Glucose (07/14/2017 4:26 PM EDT) Glucose, POC 146 65 - 199 mg/dL [facility] Comment: Supplemental ranges: <140 mg/dL before meals <180 mg/dL all other times of the day Blood specimen (specimen) 07/14/2017 4:26 PM EDT 07/14/2017 4:26 PM EDT Sriram Contreras MD POINT OF CARE TEST ORDERABLES Performing Organization Address [facility] Co de Phone Number [facility] [address] * EKG 12 Lead (07/14/2017 12:37 PM EDT) Ventricular rate 67 BPM MUSE SYSTEM Atrial Rate 67 BPM MUSE SYSTEM P-R Interval 216 ms MUSE SYSTEM QRS Duration 100 ms MUSE SYSTEM Q-T Interval 438 ms MUSE SYSTEM QTC Calculated (Bezet) 462 ms MUSE SYSTEM Calculated P [employer] 58 degrees MUSE SYSTEM Calculated R [employer] 56 degrees MUSE SYSTEM Calculated T [employer] 38 degrees MUSE SYSTEM INTERPRETATION Sinus rhythm [...] Glucose, POC 147 65 - 199 mg/dL [facility] Comment: Supplemental ranges: <140 mg/dL before meals <180 mg/dL all other times of the day Blood specimen (specimen) 07/14/2017 12:05 PM EDT 07/14/2017 12:05 PM EDT Sriram Contreras MD POINT OF CARE TEST ORDERABLES [facility] [place] [address] * POCT Glucose (07/14/2017 8:25 AM EDT) Glucose, POC 140 65 - 199 mg/dL [facility] Comment: Supplemental ranges: <140 mg/dL before meals <180 mg/dL all other times of the day Blood specimen (specimen) 07/14/2017 8:25 AM EDT 07/14/2017 8:25 AM EDT Sriram Contreras MD POINT OF CARE TEST ORDERABLES Performing Organization Address City/[facility] Co de Phone Number [facility] [address] * (ABNORMAL) Differential, Automated (07/14/2017 12:36 AM EDT) [facility] Neutrophil % 90.3 % [facility] Neutrophil Absolute 13.17(H) 1.70 - 6.10 x10(3)/mc L [facility] Lymph % 3.8 % [facility] Lymphocytes Abs 0.6(L) 0.9 - 3.2 x10(3)/mc L [facility] Monocyte % 5.4 % [facility] Monocyte Abs 0.8 0.3 - 0.9 x10(3)/mc L [facility] Eos % 0.0 % [facility] Eosinophils Abs 0.0 0.0 - 0.4 x10(3)/mc L [facility] Basophil % 0.1 % [facility] Baso Absolute 0.0 0.0 - 0.1 x10(3)/mc L [facility] Immature Gran % 0.40 % [facility] Comment: Immature granulocytes(IG's)percentage and absolute count will include metamyelocytes, myelocytes, and promyelocytes. Blood smears from CBCs yielding IG's will be scanned manually for concordance. If this scan disagrees with the automated IG or if promyelocytes are noted, a manual differential will be performed. Immature Gran Absolute 0.06(H) 0.00 - 0.04 x10(3)/mc L [facility] Blood specimen (specimen) 07/14/2017 12:36 AM EDT 07/14/2017 12:41 AM EDT Narrative Resulting Agency Comment Spec In Lab Srirma Contreras MD HEMATOLOGY ORDERAB LES [facility] [place] [address] * (ABNORMAL) Hemogram (07/14/2017 12:36 AM EDT) White Blood Cell 14.6(H) 4.0 - 9.5 x10(3)/mc L [facility] Red Blood Cell 4.57(L) 4.58 - 5.54 x10(6)/mc L [facility] Hemoglobin 14.1 13.7 - 16.5 gm/dL [facility] Hematocrit 42.1 40.5 - 48.5 % [facility] Mean Cell Volume 92.1 82.9 - 93.1 fL [facility] Mean Cell Hemoglobin 30.9 27.5 - 32.1 pg [facility] Mean Cell Hemoglobin Concentration 33.5 32.0 - 35.7 gm/dL [facility] Platelet 157 145 - 357 x10(3)/mc L [facility] RDW Standard Deviation 48.6(H) 36.0 - 45.0 fL [facility] RDW coefficient of variation 14.4(H) 11.4 - 13.8 % [facility] Mean Platelet Volume 10.2 7.6 - 12.9 fL [facility] NRBC% auto 0.0 % [facility] NRBC Absolute 0.000 0.000 - 0.000 x10(3)/mc L [facility] Blood specimen (specimen) 07/14/2017 12:36 AM EDT 07/14/2017 12:41 AM EDT Narrative Resulting Agency Comment Spec In Lab Sriram Contreras MD HEMATOLOGY ORDERAB LES Performing Organization Address [facility] Co de Phone Number [facility] [place] [address] * (ABNORMAL) Magnesium (07/14/2017 12:36 AM EDT) Magnesium 0.65(L) 0.69 - 1.07 mmol/L [facility] Blood specimen (specimen) 07/14/2017 12:36 AM EDT 07/14/2017 12:41 AM EDT Narrative Resulting Agency Comment Spec In Lab Sriram Contreras MD CHEMISTRY ORDERABL ES Performing Organization Address [facility] de Phone Number [facility] [address] * Phosphorus (07/14/2017 12:36 AM EDT) Phosphorus 3.3 2.5 - 4.5 mg/dL [facility] Blood specimen (specimen) 07/14/2017 12:36 AM EDT 07/14/2017 12:41 AM EDT Narrative Resulting Agency Comment Spec In Lab Sriram Contreras MD CHEMISTRY ORDERABL ES Performing Organization Address [facility] de Phone Number [facility] [address] * Prealbumin (07/14/2017 12:36 AM EDT) Prealbumin 23 20 - 40 mg/dL [facility] Comment: Prealbumin levels are generally lower in the pediatric population; adult concentrations are usually attained near puberty. Blood specimen (specimen) 07/14/2017 12:36 AM EDT 07/14/2017 12:45 AM EDT Narrative Resulting Agency Comment Spec In Lab Sriram Contreras MD CHEMISTRY ORDERABL ES [facility] [place] [address] * (ABNORMAL) Basic Metabolic Panel (non-fasting) (07/14/2017 12:36 AM EDT) Glucose 161 65 - 199 mg/dL [facility] Comment:Diabetes: >=200 mg/d L plus symptoms Blood Urea Nitrogen 16 10 - 20 mg/dL [facility] Creatinine 0.97 0.80 - 1.50 mg/dL [facility] Comment: Please note that the pediatric reference intervals supplied above were not validated at [facility] [place] [place]. Results from pediatric patients should be interpreted in conjunction to the patient's age, height and muscle mass. Sodium 144 135 - 145 mmol/L [facility] Potassium 4.5 3.5 - 5.0 mmol/L [facility] Comment: result rechecked- Please note: ??Patients with WBC >100,000 may have falsely elevated Potassium levels. ??For accurate Potassium quantification in these patients send serum separator tube (gold top) for subsequent determinations. ??Contact the Clinical Chemistry Laboratory if there are any questions. Chloride 108(H) 98 - 107 mmol/L [facility] Carbon Dioxide 19(L) 22 - 31 mmol/L [facility] Anion Gap 17(H) 5 - 15 mmol/L [facility] Calcium 7.7(L) 8.5 - 10.5 mg/dL [facility] Est Glomerular Filtration Rate >60 >=60 [facility] Comment: This estimated GFR [...] the following links into your internet browser. [email or web address] Blood specimen (specimen) 07/14/2017 12:36 AM EDT 07/14/2017 12:41 AM EDT Narrative Resulting Agency Comment Spec In Lab Sriram Contreras MD CHEMISTRY ORDERABL ES [facility] [place] [address] * (ABNORMAL) Basic Metabolic Panel (non-fasting) (07/13/2017 9:33 PM EDT) Glucose 147 65 - 199 mg/dL [facility] Comment:Diabetes: >=200 mg/d L plus symptoms Blood Urea Nitrogen 17 10 - 20 mg/dL [facility] Creatinine 1.16 0.80 - 1.50 mg/dL [facility] Comment: Please note that the pediatric reference intervals supplied above were not validated at [facility] [place], [place]. Results from pediatric patients should be interpreted in conjunction to the patient's age, height and muscle mass. Sodium Not Perf 135 - 145 mmol/L [facility] Comment: Unable to quantitate due to sample hemolysis. ??Sample redraw suggested. Called by: michael, Read back by: maddie rucker, Date/Time:07/13/17 22:12. Potassium Not Perf 3.5 - 5.0 mmol/L [facility] Comment: Unable to quantitate due [...] Chloride Not Perf 98 - 107 mmol/L [facility] Comment: Unable to quantitate due to sample hemolysis. ??Sample redraw suggested. Called by: michael, Read back by: randyjose alka, Date/Time:07/13/17 22:12. Carbon Dioxide 18(L) 22 - 31 mmol/L [facility] Anion Gap Not Calculated 5 - 15 mmol/L [facility] Calcium 7.3(L) 8.5 - 10.5 mg/dL [facility] Est Glomerular Filtration Rate >60 >=60 [facility] Comment: This estimated GFR (eGFR) [...] the following links into your internet browser. [email or web address] [email or web address]omplished/[email or web address] Blood specimen (specimen) 07/13/2017 9:33 PM EDT 07/13/2017 9:41 PM EDT Narrative Resulting Agency Comment Spec In Lab Sriram Contreras MD CHEMISTRY ORDERABL ES [facility] [place] [address] * XR Chest PA or AP 1 [...] PM EDT 07/13/2017 7:35 PM EDT Narrative [facility] - 07/13/2017 7:35 PM EDT Specimen requisition ordered. ??Separate Pathology report to follow Sriram Contreras MD PATHOLOGY/CYTOLOGY ORDERABLES Performing Organization Address [facility] Co de Phone Number [facility] [place] [address] * Specimen to Pathology (surgical or derm) (07/13/2017 7:05 PM EDT) AP Specimen 07/13/2017 7:05 PM EDT 07/13/2017 7:05 PM EDT Narrative [facility] - 07/13/2017 7:05 PM EDT Specimen requisition ordered. ??Separate Pathology report to follow Sriram Contreras MD PATHOLOGY/CYTOLOGY ORDERABLES Performing Organization Address [facility]/ZIP Co de Phone Number [facility] [place] [address] * Specimen to Pathology (surgical or derm) (07/13/2017 6:21 PM EDT) AP Specimen 07/13/2017 6:21 PM EDT 07/13/2017 6:21 PM EDT Narrative [facility] - 07/13/2017 6:21 PM EDT Specimen requisition ordered. ??Separate Pathology report to follow Sriram Contreras MD PATHOLOGY/CYTOLOGY ORDERABLES Performing Organization Address [facility]/[place] [address] * Specimen to Pathology (surgical or derm) (07/13/2017 5:30 PM EDT) AP Specimen 07/13/2017 5:30 PM EDT 07/13/2017 5:30 PM EDT Narrative [facility] - 07/13/2017 5:30 PM EDT Specimen requisition ordered. ??Separate Pathology report to follow Sriram Contreras MD PATHOLOGY/CYTOLOGY ORDERABLES Performing Organization Address [facility] Co de Phone Number [facility] [place] [address] * Specimen to Pathology (surgical or derm) (07/13/2017 5:30 PM EDT) AP Specimen 07/13/2017 5:30 PM EDT 07/13/2017 5:30 PM EDT Narrative [facility] - 07/13/2017 5:30 PM EDT Specimen requisition ordered. ??Separate Pathology report to follow Sriram Contreras MD PATHOLOGY/CYTOLOGY ORDERABLES Performing Organization Address [facility] [place] [address] * Specimen to Pathology (surgical or derm) (07/13/2017 5:30 PM EDT) AP Specimen 07/13/2017 5:30 PM EDT 07/13/2017 5:30 PM EDT [facility] - 07/13/2017 5:30 PM EDT Specimen requisition ordered. ??Separate Pathology report to follow Sriram Conterras MD PATHOLOGY/CYTOLOGY ORDERABLES Performing Organization Address City/[facility]/[place] [address] * Specimen to Pathology (surgical or derm) (07/13/2017 5:30 PM EDT) AP Specimen 07/13/2017 5:30 PM EDT 07/13/2017 5:30 PM EDT Narrative [facility] - 07/13/2017 5:30 PM EDT Specimen requisition ordered. ??Separate Pathology report to follow Sriram Contreras MD PATHOLOGY/CYTOLOGY ORDERABLES Performing Organization Address City/[facility]/[place] [address] * Specimen to Pathology (surgical or derm) (07/13/2017 5:21 PM EDT) AP Specimen 07/13/2017 5:21 PM EDT 07/13/2017 5:21 PM EDT Narrative [facility] - 07/13/2017 5:21 PM EDT Specimen requisition ordered. ??Separate Pathology report to follow Sriram Contreras MD PATHOLOGY/CYTOLOGY ORDERABLES Performing Organization Address City/[facility]/[place] [address] * Specimen to Pathology (surgical or derm) (07/13/2017 5:21 PM EDT) AP Specimen 07/13/2017 5:21 PM EDT 07/13/2017 5:21 PM EDT Narrative [facility] - 07/13/2017 5:21 PM EDT Specimen requisition ordered. ??Separate Pathology report to follow Sriram Contreras MD PATHOLOGY/CYTOLOGY ORDERABLES Performing Organization Address City/[facility]/[place] [address] * Specimen to Pathology (surgical or derm) (07/13/2017 5:21 PM EDT) AP Specimen 07/13/2017 5:21 PM EDT 07/13/2017 5:21 PM EDT [facility] - 07/13/2017 5:21 PM EDT Specimen requisition ordered. ??Separate Pathology report to follow Sriram Contreras MD PATHOLOGY/CYTOLOGY ORDERABLES Performing Organization Address [facility]/[place] [address] * Specimen to Pathology (surgical or derm) (07/13/2017 5:16 PM EDT) AP Specimen 07/13/2017 5:16 PM EDT 07/13/2017 5:16 PM EDT [facility] - 07/13/2017 5:16 PM EDT Specimen requisition ordered. ??Separate Pathology report to follow Sriram Contreras MD PATHOLOGY/CYTOLOGY ORDERABLES Performing Organization Address [facility]/ZIP Co de Phone Number [facility] [place] [address] * Specimen to Pathology (surgical or derm) (07/13/2017 5:05 PM EDT) AP Specimen 07/13/2017 5:05 PM EDT 07/13/2017 5:05 PM EDT [facility] - 07/13/2017 5:05 PM EDT Specimen requisition ordered. ??Separate Pathology report to follow Sriram Contreras MD PATHOLOGY/CYTOLOGY ORDERABLES Performing Organization Address [facility] [place] [address] * Specimen to Pathology (surgical or derm) (07/13/2017 5:05 PM EDT) AP Specimen 07/13/2017 5:05 PM EDT 07/13/2017 5:05 PM EDT [facility] - 07/13/2017 5:05 PM EDT Specimen requisition ordered. ??Separate Pathology report to follow Sriram Contreras MD PATHOLOGY/CYTOLOGY ORDERABLES Performing Organization Address City/[facility]/[place] [address] * Specimen to Pathology (surgical or derm) (07/13/2017 4:39 PM EDT) AP Specimen 07/13/2017 4:39 PM EDT 07/13/2017 4:39 PM EDT Narrative [facility] - 07/13/2017 4:39 PM EDT Specimen requisition ordered. ??Separate Pathology report to follow Sriram Contreras MD PATHOLOGY/CYTOLOGY ORDERABLES Performing Organization Address City/[facility]/[place] [address] * Specimen to Pathology (surgical or derm) (07/13/2017 4:35 PM EDT) AP Specimen 07/13/2017 4:35 PM EDT 07/13/2017 4:35 PM EDT Narrative [facility] - 07/13/2017 4:35 PM EDT Specimen requisition ordered. ??Separate Pathology report to follow Sriram Contreras MD PATHOLOGY/CYTOLOGY ORDERABLES Performing Organization Address City/[facility]/[place] [address] * Specimen to Pathology (surgical or derm) (07/13/2017 4:35 PM EDT) AP Specimen 07/13/2017 4:35 PM EDT 07/13/2017 4:35 PM EDT Narrative [facility] - 07/13/2017 4:35 PM EDT Specimen requisition ordered. ??Separate Pathology report to follow Sriram Contreras MD PATHOLOGY/CYTOLOGY ORDERABLES Performing Organization Address City/[facility]/[place] [address] * Specimen to Pathology (surgical or derm) (07/13/2017 3:52 PM EDT) AP Specimen 07/13/2017 3:52 PM EDT 07/13/2017 3:52 PM EDT Narrative [facility] - 07/13/2017 3:52 PM EDT Specimen requisition ordered. ??Separate Pathology report to follow Sriram Contreras MD PATHOLOGY/CYTOLOGY ORDERABLES Performing Organization Address [facility] [place] [address] * Specimen to Pathology (surgical or derm) (07/13/2017 3:52 PM EDT) AP Specimen 07/13/2017 3:52 PM EDT 07/13/2017 3:52 PM EDT Narrative [facility] - 07/13/2017 3:52 PM EDT Specimen requisition ordered. ??Separate Pathology report to follow Sriram Contreras MD PATHOLOGY/CYTOLOGY ORDERABLES Performing Organization Address [facility] Co de Phone Number [facility] [place] [address] * (ABNORMAL) BLOOD GAS 2 ARTERIAL (07/13/2017 3:46 PM EDT) pH, Arterial 7.31(L) 7.35 - 7.45 [facility] PCO2, Arterial 37 35 - 45 mmHg [facility] PO2, Arterial 103 85 - 104 mmHg [facility] Bicarbonate, Arterial 17.8(L) 20.0 - 26.0 mmol/L [facility] Base Excess, Arterial -8.5(L) -3.0 - 3.0 mmol/L [facility] Hgb Blood Gas 15.1 13.7 - 16.5 gm/dL [facility] Oxyhemoglobin, Arterial 96.6 94.0 - 97.0 % [facility] Carboxyhemoglob in, Arterial 0.4 % [facility] Comment: Nonsmokers: 0.5-1.5% COHB Smokers: Variable, but usually less than 10% Toxic: 20-30% COHB Lethal: Greater than 60% COHB Methemoglobin, Arterial 0.3 <=1.5 % [facility] Na Whole Blood 139 135 - 145 mmol/L [facility] K Whole Blood 4.5 3.5 - 5.0 mmol/L [facility] Comment: Please note: Patients with WBC >100,000 may have falsely elevated Potassium levels. Contact the Clinical Chemistry Laboratory if there are any questions. ICa Whole Blood 1.12(L) 1.15 - 1.33 mmol/L [facility] Comment: Note: ??Total bilirubin higher than 20 mg/dL may lead to falsely low ionized calcium. CL Whole Blood 110(H) 98 - 107 mmol/L [facility] Gluc Whole Bld 118 65 - 199 mg/dL [facility] Comment:Diabetes: >=200 mg/d L plus symptoms. Lactate WB 2.9(H) 0.5 - 2.2 mmol/L [facility] Blood specimen (specimen) 07/13/2017 3:46 PM EDT 07/13/2017 3:46 PM EDT Sriram oCntreras MD POINT OF CARE TEST ORDERABLES [facility] [place] [address] * (ABNORMAL) BLOOD GAS 2 ARTERIAL (07/13/2017 2:06 PM EDT) pH, Arterial 7.32(L) 7.35 - 7.45 [facility] PCO2, Arterial 32(L) 35 - 45 mmHg [facility] PO2, Arterial 96 85 - 104 mmHg [facility] Bicarbonate, Arterial 16.0(L) 20.0 - 26.0 mmol/L [facility] Base Excess, Arterial -10.1(L) -3.0 - 3.0 mmol/L [facility] Hgb Blood Gas 14.0 13.7 - 16.5 gm/dL [facility] Oxyhemoglobin, Arterial 96.1 94.0 - 97.0 % [facility] Carboxyhemoglob in, Arterial 1.1 % [facility] Comment: Nonsmokers: 0.5-1.5% COHB Smokers: Variable, but usually less than 10% Toxic: 20-30% COHB Lethal: Greater than 60% COHB Methemoglobin, Arterial 0.3 <=1.5 % [facility] Na Whole Blood 139 135 - 145 mmol/L [facility] K Whole Blood 3.8 3.5 - 5.0 mmol/L [facility] Comment: Please note: Patients with WBC >100,000 may have falsely elevated Potassium levels. Contact the Clinical Chemistry Laboratory if there are any questions. ICa Whole Blood 1.02(L) 1.15 - 1.33 mmol/L [facility] Comment: Note: ??Total bilirubin higher than 20 mg/dL may lead to falsely low ionized calcium. CL Whole Blood 115(H) 98 - 107 mmol/L [facility] Gluc Whole Bld 111 65 - 199 mg/dL [facility] Comment:Diabetes: >=200 mg/d L plus symptoms. Lactate WB 2.5(H) 0.5 - 2.2 mmol/L [facility] Blood specimen (specimen) 07/13/2017 2:06 PM EDT 07/13/2017 2:06 PM EDT Sriram Contreras MD POINT OF CARE TEST ORDERABLES [facility] [place] [address] * (ABNORMAL) Comprehensive metabolic panel (non-fasting) (07/13/2017 12:56 PM EDT) Glucose 155 65 - 199 mg/dL [facility] Comment:Diabetes: >=200 mg/d L plus symptoms Blood Urea Nitrogen 17 10 - 20 mg/dL [facility] Creatinine 1.06 0.80 - 1.50 mg/dL [facility] Comment: Please note that the pediatric reference intervals supplied above were not validated at [facility] [place] [place]. Results from pediatric patients should be interpreted in conjunction to the patient's age, height and muscle mass. Sodium 142 135 - 145 mmol/L [facility] Potassium 5.7(H) 3.5 - 5.0 mmol/L [facility] Comment: Please note: ??Patients with WBC >100,000 may have falsely elevated Potassium levels. ??For accurate Potassium quantification in these patients send serum separator tube (gold top) for subsequent determinations. ??Contact the Clinical Chemistry Laboratory if there are any questions. Chloride 108(H) 98 - 107 mmol/L [facility] Carbon Dioxide 20(L) 22 - 31 mmol/L [facility] Anion Gap 14 5 - 15 mmol/L [facility] Calcium 7.9(L) 8.5 - 10.5 mg/dL [facility] Protein, Total 6.2 6.1 - 8.0 gm/dL [facility] Albumin 3.6 3.2 - 5.2 gm/dL [facility] Aspartate Aminotransferase 15 0 - 39 unit/L [facility] Alanine Aminotransferase 13 0 - 55 unit/L [facility] Alkaline Phosphatase 70 40 - 120 unit/L [facility] Bilirubin, Total 0.2 0.2 - 1.3 mg/dL [facility] Est Glomerular Filtration Rate >60 >=60 [facility] Comment: This estimated GFR (eGFR) [...] the following links into your internet browser. [email or web address] [email or web address] Blood specimen (specimen) 07/13/2017 12:56 PM EDT 07/13/2017 1:02 PM EDT Narrative Resulting Agency Comment Spec In Lab Sriram Contreras MD CHEMISTRY ORDERABL ES [facility] [place] [address] * (ABNORMAL) BLOOD GAS 2 ARTERIAL (07/13/2017 12:15 PM EDT) pH, Arterial 7.34(L) 7.35 - 7.45 [facility] PCO2, Arterial 39 35 - 45 mmHg [facility] PO2, Arterial 68(L) 85 - 104 mmHg [facility] Bicarbonate, Arterial 20.4 20.0 - 26.0 mmol/L [facility] Base Excess, Arterial -5.4(L) -3.0 - 3.0 mmol/L [facility] Hgb Blood Gas 15.8 13.7 - 16.5 gm/dL [facility] Oxyhemoglobin, Arterial 91.8(L) 94.0 - 97.0 % [facility] Carboxyhemoglob in, Arterial 0.9 % [facility] Comment: Nonsmokers: 0.5-1.5% COHB Smokers: Variable, but usually less than 10% Toxic: 20-30% COHB Lethal: Greater than 60% COHB Methemoglobin, Arterial 0.3 <=1.5 % [facility] Na Whole Blood 138 135 - 145 mmol/L [facility] K Whole Blood 5.7(H) 3.5 - 5.0 mmol/L [facility] Comment: Please note: Patients with WBC >100,000 may have falsely elevated Potassium levels. Contact the Clinical Chemistry Laboratory if there are any questions. ICa Whole Blood 1.17 1.15 - 1.33 mmol/L [facility] Comment: Note: ??Total bilirubin higher than 20 mg/dL may lead to falsely low ionized calcium. CL Whole Blood 109(H) 98 - 107 mmol/L [facility] Gluc Whole Bld 125 65 - 199 mg/dL [facility] Comment:Diabetes: >=200 mg/d L plus symptoms. Lactate WB 3.7(H) 0.5 - 2.2 mmol/L [facility] Blood specimen (specimen) 07/13/2017 12:15 PM EDT 07/13/2017 12:15 PM EDT Sriram Contreras MD POINT OF CARE TEST ORDERABLES [facility] [place] [address] * Surgical Pathology Report (07/13/2017 12:04 PM EDT) Final Diagnosis [id number] ? 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 07/21/2017 9:57 AM EDT [facility] MOUTH REGION STRUCTURE / Unknown [...] ORDERABLES Performing Organization Address [facility] [place] [address] * Specimen to Pathology (surgical or derm) (07/13/2017 12:02 PM EDT) AP Specimen 07/13/2017 12:0 2 PM EDT 07/13/2017 12:02 PM EDT Narrative [facility] - 07/13/2017 12:02 PM EDT Specimen requisition ordered. ??Separate Pathology report to follow Sriram Contreras MD PATHOLOGY/CYTOLOGY ORDERABLES Performing Organization Address [facility] Co de Phone Number [facility] [place] [address] * (ABNORMAL) BLOOD GAS 2 ARTERIAL (07/13/2017 10:35 AM EDT) pH, Arterial 7.31(L) 7.35 - 7.45 [facility] PCO2, Arterial 45 35 - 45 mmHg [facility] PO2, Arterial 87 85 - 104 mmHg [facility] Bicarbonate, Arterial 22.2 20.0 - 26.0 mmol/L [facility] Base Excess, Arterial -4.0(L) -3.0 - 3.0 mmol/L [facility] Hgb Blood Gas 15.6 13.7 - 16.5 gm/dL [facility] Oxyhemoglobin, Arterial 95.0 94.0 - 97.0 % [facility] Carboxyhemoglob in, Arterial 0.9 % [facility] Comment: Nonsmokers: 0.5-1.5% COHB Smokers: Variable, but usually less than 10% Toxic: 20-30% COHB Lethal: Greater than 60% COHB Methemoglobin, Arterial 0.0 <=1.5 % [facility] Na Whole Blood 138 135 - 145 mmol/L [facility] K Whole Blood 5.0 3.5 - 5.0 mmol/L [facility] Comment: Please note: Patients with WBC >100,000 may have falsely elevated Potassium levels. Contact the Clinical Chemistry Laboratory if there are any questions. ICa Whole Blood 1.20 1.15 - 1.33 mmol/L [facility] Comment: Note: ??Total bilirubin higher than 20 mg/dL may lead to falsely low ionized calcium. CL Whole Blood 108(H) 98 - 107 mmol/L [facility] Gluc Whole Bld 119 65 - 199 mg/dL [facility] Comment:Diabetes: >=200 mg/d L plus symptoms. Lactate WB 2.1 0.5 - 2.2 mmol/L [facility] Blood specimen (specimen) 07/13/2017 10:35 AM EDT 07/13/2017 10:35 AM EDT Sriram Contreras MD POINT OF CARE TEST ORDERABLES Performing Organization Address [facility]/ZIP Co de Phone Number [facility] [place] [address] * ABORH Recheck Status (07/13/2017 6:27 AM EDT) ABORH Recheck Order Order Placed [facility] ABORH Type Recheck Complete [facility] Blood specimen (specimen) 07/13/2017 6:27 AM EDT 07/13/2017 6:38 AM EDT Narrative Resulting Agency Comment Spec In Lab Sriram Contreras MD BLOOD BANK LAB ORD ERABLES Performing Organization Address City/[facility]/ZIP Co de Phone Number [facility] [place] [address] * Antibody screen (07/13/2017 6:27 AM EDT) Ab Screen Interp Negative [facility] Expires at [id number] on: 07/16/2017 [facility] Blood specimen (specimen) 07/13/2017 6:27 AM EDT 07/13/2017 6:43 AM EDT Narrative Resulting Agency Comment Spec In Lab Sriram Contreras MD BLOOD BANK LAB ORD ERABLES [facility] [place] [address] * ABO/Rh Typing (07/13/2017 6:27 AM EDT) Pathologist [facility] ABORH Type O Neg [facility] Blood specimen (specimen) 07/13/2017 6:27 AM EDT 07/13/2017 6:43 AM EDT Narrative Resulting Agency Comment Spec In Lab Sriram Contreras MD BLOOD BANK LAB ORD ERABLES [facility] [place] [address] documented in this encounter Visit Diagnoses Diagnosis [...] PRN, Starting on Wed07/13/17 at 1444, Until Shabana 07/29/17 at 1535, Intra-Operative (Intra-Procedure), [...] Stiles RN)1720 (Given - Provider: Jv Valdez, RN)2053 (Given - Provider: Dixie Randhawa RN) [...] Valdez, RN)2135 (Given - Provider: Abeba Porter, BRENNA) [...] Stiles RN)1720 (Given - Provider: Jv Valdez RN)2054 (Given - Provider: Dixie Randhawa RN) [...] Wed07/27/17 at 0948, Until Wed07/27/17 at 1000, VJ VALDEZ: cabinet override 1000 (Given - Provider: [...] Embolism documented in this encounter Care Teams 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
--- OUTSIDE RECORDS SUMMARY | 2024-12-05 14:17 | XMS_ITS | Encounter Summary ---
Author Organization [facility] Address [address] [place] [address] Care Team Providers Care Dry Cleaner Helper Name Role Phone Jovon Sifuentes MD Primary Care Provider [phone] Encounter Details Date Type Department Care Team (Late st Contact Info) Description 01/02/2008 Results Only [facility] - Maple conversion [address] [place] [address] Cecilia Talley MD [address] [place] [address] [id number] Social History Tobacco Use Types Packs/Day Years Used Date Smoking Tobacco: Never Assessed Sex and Gender Information Value Date Recorded Sex Assigned at Not on file Legal Sex Male 18:21 EST Gender Identity Not on file Sexual Orientation [...] ? JOSE BEE ? Accession #: ? [id number] ? : ? 1950 (Age: 57) ??M [...] Gross Description: ? Received in formalin labelled [place] and lingual tonsil are multiple casas-pink tissue fragments measuring 1.5 x 1.2 x 0.3 cm in aggregate, which are partially surfaced by casas smooth mucosa. ??Entirely submitted in one cassette. (Sabina Thomas/raghavendra End of Report [facility] 01/02/2008 01/02/2008 16: 09 EST us Cecilia Talley MD PATHOLOGY ORDERABLES Final Resul t [facility] [address] [place] [address] documented in this encounter Visit Diagnoses Not on filedocumented in this encounter Care Teams Dry Cleaner Helper Relationship Specialty Start Date End Date Jovon Sifuentes MD [address] [place] [address] PCP - General 09/05/09 documented as of this encounter
--- OUTSIDE RECORDS SUMMARY | 2024-12-05 14:17 | XMS_ITS | Encounter Summary ---
Author Organization [facility] Address [address] [place] [address] Care Team Providers Care Shank Maker Name Role Phone Jovon Sifuentes MD Primary Care Provider [phone] Encounter Details Date Type Department Care Team (Late st Contact Info) Description 07/31/2020 Lab Requisition [facility] Pathology & Laboratory Medicine - [address] [id number] Outr Resulting Lab, Provider Social History Tobacco [...] 0.0 - 6.5 ng/mL 07/31/2020 19:55 EDT [facility] Blood VENOUS BLOOD / Unknown 07/30/2020 14:40 EDT 07/31/2020 17:10 EDT Narrative [facility] - 07/31/2020 19:55 EDT NOTE: Serum PSA concentration should not be interpreted as absolute evidence for the presence or absence of malignant disease. Assayed on Siemens ADVIA OncoTree DTSaur XPT using chemiluminescent technology.??Values obtained by using different assay methods cannot be used interchangeably. us Provider Outr Resulting Lab CHEMISTRY & BLOOD GA S ORDERABLES Final Result [facility] [address] [place] [address] documented in this encounter Visit Diagnoses Not on filedocumented in this encounter Care Teams Shank Maker Relationship Specialty Start Date End Date Jovon Sifuentes MD [address] [place] [address] PCP - General 09/05/09 documented as of this encounter
--- OUTSIDE RECORDS SUMMARY | 2024-12-05 14:17 | XMS_ITS | Encounter Summary ---
Author Organization [facility] [place] [address] Care Team Providers Care Small Products Assembler Name Role Phone Jovon Sifuentes MD Primary Care Provider Encounter Details Date Type Department Care Team (Latest Contact Info) Description 03/29/2017 - 03/29/2017 11:59 PM EDT Hospital Encounter Radiology Library at [facility] [place] [address] Zafar Madera MD [facility] [address] Pain Discharge Disposition: Home Social History Tobacco [...] AM EDT Office Visit Hematology/Oncology at [address] [phone] Dmitry Bhatti MD [facility] [place] [address] Ellen Mcrae APRN [facility] [place] [address] 01/30/2025 11:30 AM EDT Infusion Hematology Oncology at [address] [phone] documented as of this encounter Procedures Procedure Name Priority Date/Time Associated Diagnosis Comments FILM LIBRARY STORAGE ONLY CT CHEST Routine 03/29/2017 12:00 AM EDT Pain documented in this encounter Results * Film Library- Storage Only CT Chest (03/29/2017 12:00 AM EDT) Narrative [facility] - 04/15/2017 11:52 AM EDT This exam is for storage only and is auto-finalizing. Zafar Madera MD IMG FILM LIBRARY OR DERABLES [place], [place] documented in this encounter Visit Diagnoses Diagnosis Pain Generalized pain documented in this encounter Care Teams Small Products Assembler Relationship Specialty Start Date End Date Jovon Sifuentes MD [address] [place] [address] PCP - General 09/30/10 09/10/21 documented as of this encounter
--- OUTSIDE RECORDS SUMMARY | 2024-12-05 14:17 | XMS_ITS | Encounter Summary ---
Author Organization [facility] [place] [address] Care Team Providers Care Trackwalker Name Role Phone Jovon Sifuentes MD Primary Care Provider [phone] Encounter Details Date Type Department Care Team (Latest Contact Info) Description 03/18/2017 - 03/18/2017 11:59 PM EDT Hospital Encounter Radiology Library at [facility] [place] [address] Jovon Sifuentes MD [address] [place] [address] Pain Discharge Disposition: Home Social History Tobacco [...] AM EDT Office Visit Hematology/Oncology at [address] [address] Dmitry Bhatti MD [facility] [place] [address] Ellen Mcrae APRN [facility] [place] [address] 01/30/2025 11:30 AM EDT Infusion Hematology Oncology at [address] [phone] documented as of this encounter Procedures Procedure Name Priority Date/Time Associated Diagnosis Comments FILM LIBRARY STORAGE ONLY CT HEAD AND SPINE Routine 03/18/2017 12:00 AM EDT Pain documented in this encounter Results * Film Library- Storage Only CT Head And Spine (03/18/2017 12:00 AM EDT) Narrative [facility] - 03/18/2017 3:03 PM EDT This exam is for storage only and is auto-finalizing. Jovon Sifuentes MD G FILM LIBRARY ORD ERABLES [place], [place] documented in this encounter Visit Diagnoses Diagnosis Pain Generalized pain documented in this encounter Care Teams Trackwalker Relationship Specialty Start Date End Date Jovon Sifuentes MD [address] [place] [address] PCP - General 09/30/10 09/10/21 documented as of this encounter
--- OUTSIDE RECORDS SUMMARY | 2024-12-05 14:17 | XMS_ITS | Encounter Summary ---
Author Organization [facility] [place] [address] Care Team Providers Care Men'S Designer Name Role Phone Jovon Sifuentes MD Primary Care Provider [phone] Encounter Details Date Type Department Care Team (Latest Contact Info) Description 03/26/2017 - 03/26/2017 11:59 PM EDT Hospital Encounter Radiology Library at [facility] [place] [address] Zafar Madera MD [facility] [place] [address] Pain Discharge Disposition: Home Social History Tobacco [...] AM EDT Office Visit Hematology/Oncology at [address] [phone] Dmitry Bhatti MD [facility] [place] [address] Ellen Mcrae APRN [facility] [place] [address] 01/30/2025 11:30 AM EDT Infusion Hematology Oncology at [address] [phone] documented as of this encounter Procedures Procedure Name Priority Date/Time Associated Diagnosis Comments FILM LIBRARY STORAGE ONLY CT ABDOMEN AND PELVIS Routine 03/26/2017 12:00 AM EDT Pain documented in this encounter Results * Film Library- Storage Only CT Abdomen & Pelvis (03/26/2017 12:00 AM EDT) Narrative [facility] - 04/15/2017 11:54 AM EDT This exam is for storage only and is auto-finalizing. Zafar Madera MD IMG FILM LIBRARY OR DERABLES Performing Organization Address City/State/[facility] Co de Phone Number [place], [place] documented in this encounter Visit Diagnoses Diagnosis Pain Generalized pain documented in this encounter Care Teams Men'S Designer Relationship Specialty Start Date End Date Jovon Sifuentes MD [address] [place] [address] PCP - General 09/30/10 09/10/21 documented as of this encounter
--- OUTSIDE RECORDS SUMMARY | 2024-12-05 14:17 | XMS_ITS | Encounter Summary ---
[place] [address] Care Team Providers Care Optometry Professor Name Role Phone Jovon Sifuentes MD Primary Care Provider [phone] Reason for Referral * Consultation (Routine) - Specialty Diagnoses / Procedures Referred By Huma valladares Referred To Contact Hematology and Oncology Diagnoses Cancer of base of tongue Zafar Madera MD [facility] [place] [address] [facility] Hem Onc [address] [place] [address] Referral ID Status Reason Start Date Expiration Date V isits Requested Visits Authorized Consult, Test & Treat 04/27/2017 04/27/2018 1 1 * Consultation (Routine) - Closed Specialty Diagnoses / Procedures Referred By Huma valladares Referred To Contact Radiation Oncology Diagnoses Cancer of base of tongue Zafar Madera MD [facility] [place] [address] [facility] [place] [address] Referral ID Status Reason Start Date Expiration Date V isits Requested Visits Authorized Closed Consult, Test & Treat 04/27/2017 04/27/2018 1 1 Reason for Visit * Reason Comments Follow-up Encounter Details Date Type Department Care Team (Late st Contact Info) Description 04/27/2017 11:40 AM EDT Office Visit [place] [address] Zafar Madera MD [facility] [place] [address] Cancer of base of tongue Social History [...] AM EDT Office Visit Hematology/Oncology at [address] [phone] Dmitry Bhatti MD [facility] DR HEMATOLOGY [place] [address] Ellen Mcrae APRN [facility] [place] [address] 01/30/2025 11:30 AM EDT Infusion Hematology Oncology at [address] [phone] Scheduled Referrals Name Type Priority Associated Diagnoses [...] tongue documented in this encounter Care Teams Optometry Professor Relationship Specialty Start Date End Date Jovon Sifuentes MD [address] [place] [address] PCP - General 09/30/10 09/10/21 documented as of this encounter
--- OUTSIDE RECORDS SUMMARY | 2024-12-05 14:17 | XMS_ITS | Encounter Summary ---
[place] [address] Care Team Providers Care Commercial Accountant Name Role Phone Jovon Sifuentes MD Primary Care Provider [phone] Reason for Referral * Consultation (Urgent) - Closed Specialty Diagnoses / Procedures Referred By Huma valladares Referred To Contact Hematology and Oncology Diagnoses Throat mass Zafar Madera MD [facility] [place] [address] [facility] Hem Onc [address] [place] [address] Referral ID Status Reason Start Date Expiration Date V isits Requested Visits Authorized [id number] Closed Consult, Test & Treat 04/07/2017 04/07/2018 [...] smoking and dysphagia Celso Elkins, DO [address] [place] [address] Zafar Madera MD [facility] [place] [address] Referral ID Status Reason Start Date Expiration Date Visits Re quested Visits Authorized [id number] Closed 03/17/2017 03/17/2018 1 1 Encounter Details Date Type Department Care Team (Late st Contact Info) Description 04/06/2017 3:00 PM EDT Office [place] [address] Zafar Madera MD [facility] [place] [address] Throat mass Social History Tobacco Use Types [...] Cheney PA - 04/06/2017 3:00 PM EDT [facility] Otolaryngology - Head and Neck Surgery Hilton Cheney PA-C 04/06/17 10:11 PM [address] [place] [address] Office Patient Name: Jose Bee Date of [...] felt something in his throat for years. Chauncey worsened in last couple of months. Feels [...] of 30 drinks/week x 15 years. Occupation: [employer]. Lives in [place] [facility] [place] [facility] [address] Social History Social History ??? Marital status: [...] and discuss/plan the biopsyprocedure. Hilton Cheney PA-C [place], [place] [address] Office @Today@ 10:11 PM * Zafar Madera [...] AM EDT Office Visit Hematology/Oncology at [address] [phone] Dmitry Bhatti MD [facility] [place] [address] Ellen Mcrae APRN [facility] [place] [address] 01/30/2025 11:30 AM EDT Infusion Hematology Oncology at [address] [phone] Scheduled Referrals Name Type Priority Associated Diagnoses Order Schedule Referral to Hematology and Oncology Outpatient Referral Routine Throat mass Ordered: 04/07/2017 documented as of this encounter Visit Diagnoses Diagnosis Throat mass Swelling, mass, or lump in head and neck documented in this encounter Care Teams Commercial Accountant Relationship Specialty Start Date End Date Jovon Sifuentes MD [address] [place] [address] PCP - General 09/30/10 09/10/21 documented as of this encounter
--- OUTSIDE RECORDS SUMMARY | 2024-12-05 14:17 | XMS_ITS | Encounter Summary ---
Author Organization [facility] Address [address] [place] [address] Care Team Providers Care Health Care Recruiter Name Role Phone Jovon Sifuentes MD Primary Care Provider [phone] Encounter Details Date Type Department Care Team (Late st Contact Info) Description 05/18/2020 Lab Requisition [facility] Pathology & Laboratory Medicine - [address] [address] Outr Resulting Lab, Provider Social History Tobacco [...] rt-PCR Result NEGATIVE Negative 05/20/2020 13:54 EDT [facility] Comment: 2019-novel Coronavirus (2019-nCoV) not [...] in accordance with CLIA regulations, College of [place] [employer] (CAP) guidelines (Jan 25, 2020), and FDA guidance (Jan 06, 2020). This test is only for use under the Food and Drug Administration's Emergency Use Authorization. Swab ENTIRE NASOPHARYNX / Unknown 05/18/2020 11:03 EDT 05/18/2020 22:43 EDT us Provider Outr Resulting Lab MICROBIOLOGY - GENER AL ORDERABLES Final Result [facility] [place], [place] * COVID-19 TESTING (05/18/2020 11:03 EDT) COVID-19 rt-PCR Result NEGATIVE Negative 05/20/2020 14:[address] [facility] Comment: 2019-novel Coronavirus (2019-nCoV) not detected [...] in accordance with CLIA regulations, College of [place] [employer]ologists (CAP) guidelines (Jan 25, 2020), and FDA guidance (Jan 06, 2020). This test is only for use under the Food and Drug Administration's Emergency Use Authorization. Performing Lab [facility] 05/20/2020 14:40 EDT [facility] Swab 05/18/2020 11:0 3 EDT 05/18/2020 22:43 EDT us Provider Outr Resulting Lab MICROBIOLOGY - GENER AL ORDERABLES Final Result [facility] [address] [place] [address] [facility] [place] documented in this encounter Visit Diagnoses Not on filedocumented in this encounter Additional Health Concerns Infection Onset Date Last Indicated Resolved Time R/O COVID-19 05/18/2020 05/18/2020 05/23/2020 22:1 6 EDT documented as of this encounter Care Teams Health Care Recruiter Relationship Specialty Start Date End Date Jovon Sifuentes MD [address] [place] [address] PCP - General 09/05/09 documented as of this encounter
--- OUTSIDE RECORDS SUMMARY | 2024-12-05 14:17 | XMS_ITS | Encounter Summary ---
Author Organization [facility] Address [address] [place] [address] Care Team Providers Care Care Attendant Name Role Phone Jovon Sifuentes MD Primary Care Provider [phone] Encounter Details Date Type Department Care Team (Late st Contact Info) Description 10/08/2020 Lab Requisition [facility] Pathology & Laboratory Medicine - [address] [address] Outr Resulting Lab, Provider Social History Tobacco [...] in accordance with CLIA regulations, College of [place] Pathologists (CAP) guidelines (Jan 25, 2020), and FDA guidance (Jan 06, 2020). This test is only for use under the Food and Drug Administration's Emergency Use Authorization. Swab ENTIRE NASOPHARYNX / Unknown 10/08/2020 10:12 EST 10/08/2020 16:36 EST us Provider Outr Resulting Lab MICROBIOLOGY - GENER AL ORDERABLES Final Result [facility] [place], [place] * COVID-19 TESTING (10/08/2020 10:12 EST) COVID-19 rt-PCR Result NEGATIVE Negative 10/10/2020 10:28 EST [facility] Comment: 2019-novel Coronavirus (2019-nCoV) not [...] in accordance with CLIA regulations, College of [place] [employer]ologists (CAP) guidelines (Jan 25, 2020), and FDA guidance (Jan 06, 2020). This test is only for use under the Food and Drug Administration's Emergency Use Authorization. Performing Lab [facility] 10/10/2020 10:28 EST [facility] Swab 10/08/2020 10:1 2 EST 10/08/2020 16:36 EST us Provider Outr Resulting Lab MICROBIOLOGY - GENER AL ORDERABLES Final Result [facility] [address] [place] [address] [facility] [place], [place] documented in this encounter Visit Diagnoses Not on filedocumented in this encounter Care Teams Care Attendant Relationship Specialty Start Date End Date Jovon Sifuentes MD [address] [place] [address] PCP - General 09/05/09 documented as of this encounter
--- OUTSIDE RECORDS SUMMARY | 2024-12-05 14:17 | XMS_ITS | Encounter Summary ---
Author Organization [facility] [place] [address] Care Team Providers Care Sock Examiner Name Role Phone Jovon Sifuentes MD Primary Care Provider [phone] Encounter Details Date Type Department Care Team (Late Contact Info) Description 04/09/2017 Telephone [place] [phone] Vane Cardona Social History Tobacco Use Types [...] AM EDT Office Visit Hematology/Oncology at [address] [phone] Dmitry Bhatti MD [facility] [place] [address] Ellen Mcrae APRN [facility] [place] [address] 01/30/2025 11:30 AM EDT Infusion Hematology Oncology at [address] [phone] documented as of this encounter Visit Diagnoses Not on filedocumented in this encounter Care Teams Sock Examiner Relationship Specialty Start Date End Date Jovon Sifuentes MD [address] [place] [address] PCP - General 09/30/10 09/10/21 documented as of this encounter
--- OUTSIDE RECORDS SUMMARY | 2024-12-05 14:17 | XMS_ITS | Encounter Summary ---
[place] [address] Care Team Providers Care Packing House Laborer Name Role Phone Jovon Sifuentes MD Primary Care Provider [phone] Reason for Visit * Reason Comments Acrochordon Encounter Details Date Type Department Care Team (Late st Contact Info) Description 02/16/2011 11:30 AM EDT Office Visit Dermatology [address] [facility] [address] [place] [address] Alex Diaz MD [address] [facility] [place] [address] Acrochordons (Primary Dx) Social History Tobacco Use [...] AM EDT Office Visit Hematology/Oncology at [address] [phone] Dmitry Bhatti MD [facility] DR [place] [address] Ellen Mcrae APRN [facility] [place] [address] 01/30/2025 11:30 AM EDT Infusion Hematology Oncology at [address] [phone] documented as of this encounter Visit Diagnoses Diagnosis Acrochordons- Primary Unspecified hypertrophic and atrophic condition of skin documented in this encounter Care Teams Packing House Laborer Relationship Specialty Start Date End Date Jovon Sifuentes MD [address] [place] [address] PCP - General 09/30/10 09/10/21 documented as of this encounter
--- OUTSIDE RECORDS SUMMARY | 2024-12-05 14:17 | XMS_ITS | Encounter Summary ---
Author Organization [facility] Address [facility] [place] [address] Care Team Providers Care Industrial Methods Consultant Name Role Phone Jovon Sifuentes MD Primary Care Provider [phone] Reason for Visit * Consultation (Urgent) - Closed Specialty Diagnoses / Procedures Referred By Huma valladares Referred To Contact Hematology and Oncology Diagnoses Throat mass Zafar Madera MD [facility] [place] [place] [address] [facility] Hem Onc [address] [place] [address] Referral ID Status Reason Start Date Expiration Date V isits Requested Visits Authorized [id number] Closed Consult, Test & Treat 04/07/2017 04/07/2018 1 1 Encounter Details Date Type Department Care Team (Late st Contact Info) Description 04/14/2017 10:00 AM EDT Office Visit [place]ematology [place] [phone] Geovanna Deleon MD [facility] [address] [place] [address] Other acute pulmonary embolism without [...] Deleon MD - 04/14/2017 10:00 AM EDT [facility] Hemophilia and Thrombosis Center [place] [address] THROMBOSIS CONSULTATION DATE OF VISIT 04/14/2017 Patient [...] with bleeding risk, he was referred to [facility] to see Dr. [...] AM EDT Office Visit Hematology/Oncology at [address] [phone] Dmitry Bhatti MD [facility] [place] [address] Ellen Mcrae APRN [facility] [place] [address] 01/30/2025 11:30 AM EDT Infusion Hematology Oncology at [address] [phone] Scheduled Referrals Name Type Priority Associated Diagnoses Order Schedule Referral to Hematology and Oncology Outpatient Referral Routine Throat mass Ordered: 04/07/2017 documented as of this encounter Visit Diagnoses Diagnosis Other acute pulmonary embolism without acute cor pulmonale Pre-op evaluation Preoperative examination, unspecified Throat mass Swelling, mass, or lump in head and neck documented in this encounter Care Teams Industrial Methods Consultant Relationship Specialty Start Date End Date Jovon Sifuentes MD [address] [place] [address] PCP - General 09/30/10 09/10/21 documented as of this encounter
--- OUTSIDE RECORDS SUMMARY | 2024-12-05 14:17 | XMS_ITS | Encounter Summary ---
Author Organization [facility] Address [address] [place] [address] Care Team Providers Care Contestant Coordinator Name Role Phone Jovon Sifuentes MD Primary Care Provider [phone] Encounter Details Date Type Department Care Team (Late st Contact Info) Description 07/21/2006 Results Only [facility] - Maple conversion [address] [place] [address] Mario Medel MD [address] [place] [address] Social History Tobacco Use Types [...] ? JOSE BEE ? Accession #: ? [id number] ? : ? 1950 (Age: 55) ??M [...] submitted in toto as (B). Received in [facility]'s fixative labelled [place] and rectosigmoid polyp are two casas-pink polypoid portions of soft tissue averaging 0.2 x 0.2 x 0.1 cm, submitted in toto as (C). ??(Denzel Aldridge)/[facility] End of Report [facility] 07/21/2006 07/22/2006 10: 30 EDT us Mario Medel MD PATHOLOGY ORDERABLES Final Resul t [facility] [address] [place] [address] documented in this encounter Visit Diagnoses Not on filedocumented in this encounter Care Teams Contestant Coordinator Relationship Specialty Start Date End Date Jovon Sifuentes MD [address] [place] [address] PCP - General 09/05/09 documented as of this encounter
--- OUTSIDE RECORDS SUMMARY | 2024-12-05 14:17 | XMS_ITS | Encounter Summary ---
Author Organization [facility] Address [address] [place] [address] Care Team Providers Care Salary Manager Name Role Phone Jovon Sifuentes MD Primary Care Provider [phone] Encounter Details Date Type Department Care Team (Late st Contact Info) Description 05/14/2023 Lab Requisition [facility] Pathology & Laboratory Medicine - [address] [address] Dinesh Phelps MD [address] [place] [address] [place] [address] Encounter for other general examination [...] management options, if applicable. 05/18/2023 11:25 EDT [facility] Final Diagnosis A. PROSTATE, [...] adenocarcinoma, involving 1 of 1 core. - Portola score 4 + 5 = 9 (grade group 5), tumor extent 9 mm (80% of core). E. PROSTATE, RIGHT APEX LATERAL, NEEDLE CORE BIOPSY: - Prostatic adenocarcinoma, involving 1 of 1 core. - Portola score 5 + 4 = 9 (grade group 5), tumor extent 16 mm (100% of core). - Perineural invasion is identified. F. PROSTATE, RIGHT APEX MEDIAL, NEEDLE CORE BIOPSY: - Prostatic adenocarcinoma, involving 1 of 1 core. - Portola score 5 + 4 = 9 (grade group 5), tumor extent 15 mm (95% of core). - Perineural invasion is identified. G. PROSTATE, LEFT BASE LATERAL, NEEDLE CORE BIOPSY: - Atypical small acinar proliferation (LOLITA), highly suspicious for minute focus (0.1 mm) of prostatic adenocarcinoma. H. PROSTATE, LEFT BASE MEDIAL, NEEDLE CORE BIOPSY: - Prostatic adenocarcinoma, involving 1 of 1 core. - Portola score 4 + 3 = 7 (grade group 3), 70% Marko pattern 4, tumor extent 6 mm (40% of core). - Cribriform Marko pattern 4 is present. I. PROSTATE, LEFT MID LATERAL, NEEDLE CORE BIOPSY: - Prostatic adenocarcinoma, involving 1 of 1 core. - Portola score 3 + 5 = 8 (grade [...] adenocarcinoma, involving 1 of 1 core. - Portola score 5 + 4 = 9 (grade group 5), tumor extent 2 mm (20% of core). 05/18/2023 11:25 [facility] Diagnosis Comment 05/18/2023 11:25 [facility] Attestation There was significant resident/fellow involvement in the diagnostic evaluation of this case. By the signature below, the attending physician certifies that they have personally conducted a gross and/or microscopic examination of the described specimens and rendered or confirmed the above diagnosis. 05/18/2023 11:25 [facility] at 1125 Clinical History Not listed 05/18/2023 11:25 [facility] Gross Description A. Received [...] L1. Arely Albright 05/14/2023 9:33 05/18/2023 11:25 T [facility] Resident/Yan w: Katherine Murillo MD 05/18/2023 11:25 EDT [facility] Performing Lab [facility] 05/18/2023 11:25 T [facility] Scanned Images 05/18/2023 11:25 T [facility] Tissue ENTIRE APEX OF [...] Unknown 05/13/2023 13:20 EDT 05/14/2023 8:49 EDT [facility] Sriram Phelps MD PATHOLOGY ORDERABLES Heidy l Result [facility] [address] [place] [address] documented in this encounter Visit Diagnoses Diagnosis Encounter for other general examination documented in this encounter Care Teams Salary Manager Relationship Specialty Start Date End Date Jovon Sifuentes MD [address] [place] [address] PCP - General 09/05/09 documented as of this encounter
--- OUTSIDE RECORDS SUMMARY | 2024-12-05 14:17 | XMS_ITS | Referral Summary ---
Author Organization [facility] Address [address] [place] [address] Care Team Providers Care Global Implementation Manager Name Role Phone Jovon Sifuentes MD Primary Care Provider [phone] Social History Tobacco Use Types Packs/Day Years Used Date Smoking Tobacco: Never Assessed Sex and Gender Information Value Date Recorded Sex Assigned at Not on file Legal Sex Male 18:21 EST Gender Identity Not on file Sexual Orientation Not on file Plan of Treatment Not on file [facility] [place] Care Teams Global Implementation Manager Relationship Specialty Start Date End Date Jovon Sifuentes MD [address] [place] [address] PCP - General 09/05/09
--- OUTSIDE RECORDS SUMMARY | 2024-12-05 14:17 | XMS_ITS | Encounter Summary ---
Author Organization [facility] Address [address] [place] [address] Care Team Providers Care Cover Mat Machine Operator Name Role Phone Jovon Sifuentes MD Primary Care Provider [phone] Encounter Details Date Type Department Care Team (Late st Contact Info) Description 10/12/2012 Results Only [facility] - [facility] [address] [place], [place] [address] Mario Medel MD [address] [place], [place] [id number] Social History Tobacco Use Types Packs/Day Years [...] ? JOSE BEE ? Accession #: ? [id number] ? : ? 1950 (Age: 61) ??M [...] Deeper sections were reviewed for (B). ??(Dr. Strickland)/[facility] Document reviewed and electronically signed by: [...] as (B). ??(Kyler Keita)/raghavendra End of Report [facility] 10/12/2012 10/12/2012 16: 02 EST us Mario Medel MD PATHOLOGY ORDERABLES Final Resul t [facility] [address] [place] [address] documented in this encounter Visit Diagnoses Not on filedocumented in this encounter Care Teams Cover Mat Machine Operator Relationship Specialty Start Date End Date Jovon Sifuentes MD [address] [place] [address] PCP - General 09/05/09 documented as of this encounter
--- OUTSIDE RECORDS SUMMARY | 2024-12-05 14:17 | XMS_ITS | Encounter Summary ---
Author Organization [facility] Address [address] [place] [address] Care Team Providers Care Agricultural Education Teacher Name Role Phone Jovon Sifuentes MD Primary Care Provider [phone] Encounter Details Date Type Department Care Team (Late st Contact Info) Description 10/16/2020 Lab Requisition [facility] Pathology & Laboratory Medicine - [address] [address] Outr Resulting Lab, Provider Social History Tobacco [...] in accordance with CLIA regulations, College of [employer] (CAP) guidelines (Jan 25, 2020), and FDA guidance (Jan 06, 2020). This test is only for use under the Food and Drug Administration's Emergency Use Authorization. Swab ENTIRE NASOPHARYNX / Unknown 10/15/2020 13:00 EST 10/16/2020 16:13 EST us Provider Outr Resulting Lab MICROBIOLOGY - GENER AL ORDERABLES Final Result [facility] [place], [place] * COVID-19 TESTING (10/15/2020 13:00 EST) COVID-19 rt-PCR Result NEGATIVE Negative 10/18/2020 15:51 EST [facility] Comment: 2019-novel Coronavirus (2019-nCoV) not [...] in accordance with CLIA regulations, College of Peruv[employer] Pathologists (CAP) guidelines (Jan 25, 2020), and FDA guidance (Jan 06, 2020). This test is only for use under the Food and Drug Administration's Emergency Use Authorization. Performing Lab [facility] 10/18/2020 15:51 EST [facility] Swab 10/15/2020 13:0 0 EST 10/16/2020 16:13 EST us Provider Outr Resulting Lab MICROBIOLOGY - GENER AL ORDERABLES Final Result [facility] [address] [place] [address] [facility] [place], [place] documented in this encounter Visit Diagnoses Not on filedocumented in this encounter Care Teams Agricultural Education Teacher Relationship Specialty Start Date End Date Jovon Sifuentes MD [address] [place] [address] PCP - General 09/05/09 documented as of this encounter
--- OUTSIDE RECORDS SUMMARY | 2024-12-05 14:17 | XMS_ITS | Clinical Summary ---
Author Organization [facility] Address [address] [place] [address] Care Team Providers Care Rn Family Practice Name Role Phone Jovon Sifeuntes MD Primary Care Provider [phone] Social History Tobacco Use Types Packs/Day Years Used Date Smoking Tobacco: Never Assessed Sex and Gender Information Value Date Recorded Sex Assigned at Not on file Legal Sex Male 18:21 EST Gender Identity Not on file Sexual Orientation Not on file Plan of Treatment Health Maintenance Due Date Last Done Comments Hepatitis C Screen 1950 Fall Risk Screening 2014 COVID-19 Vaccine (2023-25 season) 2024 RSV Immunization ( o r 60+ Years) (1 - 1-dose 75+ series) 2024 [facility] [place] Care Teams Rn Family Practice Relationship Specialty Start Date End Date Jovon Sifuentes MD [address] [place] [address] PCP - General 09/05/09
--- OUTSIDE RECORDS SUMMARY | 2024-12-05 14:17 | XMS_ITS | Encounter Summary ---
Author Organization Health system Address [address] [place] [address] Care Team Providers Care Rn Spine Name Role Phone Jovon Sifuentes MD Primary Care Provider [phone] Encounter Details Date Type Department Care Team (Late st Contact Info) Description 05/04/2023 Lab Requisition [facility] Pathology & Laboratory Medicine - [address] [id number] Outr Resulting Lab, Provider Social History Tobacco [...] <=6.5 ng/mL 05/04/2023 19:05 EDT [facility] Blood VENOUS BLOOD / Unknown 05/03/2023 14:15 EDT 05/04/2023 17:19 EDT Narrative [facility] - 05/04/2023 19:05 EDT NOTE: Serum PSA concentration should not be interpreted as absolute evidence for the presence or absence of malignant disease. Assayed on Siemens ADVIA Centaur XPT using chemiluminescent technology.??Values obtained by using different assay methods cannot be used interchangeably. us Provider Outr Resulting Lab CHEMISTRY & BLOOD GA S ORDERABLES Final Result [facility] [address] [place] [address] documented in this encounter Visit Diagnoses Not on filedocumented in this encounter Care Teams Rn Spine Relationship Specialty Start Date End Date Jovon Sifuentes MD [address] [place] [phone] PCP - General 09/05/09 documented as of this encounter
--- OUTSIDE RECORDS SUMMARY | 2024-12-05 14:17 | XMS_ITS | Encounter Summary ---
[place] [address] Care Team Providers Care Cost Report Clerk Name Role Phone Jovon Sifuentes MD Primary Care Provider [phone] Encounter Details Date Type Department Care Team (Late Contact Info) Description 02/03/2011 3:30 PM EDT Office Visit Dermatology [facility] [facility] [address] [place] [address] Alex Diaz MD [address] [facility] [place] [place] [address] Social History Tobacco Use Types Packs/Day Years [...] AM EDT Office Visit Hematology/Oncology at [address] [address] Dmitry Bhatti MD [facility] DR HEMATOLOGY [place] [address] Ellen Mcrae APRN [facility] [place] [address] 01/30/2025 11:30 AM EDT Infusion Hematology Oncology at [address] [address] documented as of this encounter Visit Diagnoses Not on filedocumented in this encounter Care Teams Cost Report Clerk Relationship Specialty Start Date End Date Jovon Sifuentes MD [address] [place] [address] PCP - General 09/30/10 09/10/21 documented as of this encounter
--- OUTSIDE RECORDS SUMMARY | 2024-12-05 14:17 | XMS_ITS | Encounter Summary ---
Author Organization [facility] Address [address] [place] [address] Care Team Providers Care Cutlet Maker Pork Name Role Phone Jovon Sifuentes MD Primary Care Provider [phone] Encounter Details Date Type Department Care Team (Late st Contact Info) Description 09/25/2009 Orders Only [address] [address] Mario Medel MD [address] [place], [place] [phone] Social History Tobacco Use Types Packs/Day Years [...] reading/interpreti ng unformatted reports. ? Name: ? EUSEBIA, JOSE ? Accession #: ? [id number] ? : ? 1950 (Age: 58) ??M ? Collect Date: ? 09/25/2009 ? Location: ? [facility] ? Receive Date: ? 09/25/2009 ? Provider: MARIO MEDEL MD ? Copy to: JOVON SIFUENTES MD [...] adenoma ? Gross Description: ? Received in [facility]'s fixative labelled Jose Bee and #1 ? ascending colon polyp are three biopsies which vary in size from 0.1 cm in ? diameter up to 0.3 x 0.2 x 0.2 cm. ??The specimens are submitted intact as (A). ? Received in [facility]'s fixative labelled Jose Bee and #2 ? transverse colon polyp is a 0.2 x 0.2 x 0.2 cm biopsy. ??The specimen is ? submitted intact as (B). ? Received in [facility]'s fixative labelled Jose Bee and #3 [...] [facility] 09/25/2009 09/25/2009 16: 24 EST us Mario Medel MD PATHOLOGY ORDERABLES Final Resul t Performing Organization Address City/State/[facility] Co de Phone Number [facility]ANNIE [facility] [address] [place] [address] documented in this encounter Visit Diagnoses Not on filedocumented in this encounter Care Teams Cutlet Maker Pork Relationship Specialty Start Date End Date Jovon Sifuentes MD [address] [place] [address] PCP - General 09/05/09 documented as of this encounter
[2024-12-07 10:50] LABS: PSA, Ultrasensitive 0.22 ng/mL (<= 6.5)
[2024-12-08 16:19] LABS: Testosterone, Total 7.2 ng/dL (240-950)
== END 2024-12-05 13:59 | disposition home or self-care (01) ==
LOC: LBO 13:59
PROVIDERS: PCP Family Medicine; Visit Provider Internal Medicine
DX: C61 Malignant neoplasm of prostate (principal); C79.51 Secondary malignant neoplasm of bone
CPT/HCPCS: 36415; 80053; 84153; 84403; 85025

== ENCOUNTER 2025-01-25 01:31 | Outpatient (CLI) | payer MEDICARE, BC, SELFPAY ==
[2025-01-25 07:46] LABS: Abs Immature Grans 0.01 10^3/uL (0.0-0.06); Absolute Eosinophil Count 0.23 10^3/uL (0.0-0.7); Absolute Lymphocyte Count 1.99 10^3/uL (1.2-3.4); Absolute Monocyte Count 0.63 10^3/uL (0.1-0.8); Absolute Neutrophil Count 3.04 10^3/uL (1.2-6.7); Basophils % 1.7 %; Eosinophils % 3.8 %; HCT 42.5 % (40.0-50.0); HGB 14.5 g/dL (13.5-17.5); Immature Grans % 0.2 %; Lymphocytes % 33.2 %; MCH 31.7 pg (27.0-33.0); MCHC 34.1 % (32.0-36.0); MCV 93 fL (80-95); Monocytes % 10.5 %; Neutrophils % 50.6 %; Platelet Count 160 10^3/uL (130-400); RBC 4.57 10^6/uL (4.36-5.78); RDW 13.1 % (11.8-14.1); RDW-SD 44.5 fL
[2025-01-25 08:06] LABS: ALT 21 U/L (16-63); AST 18 U/L (15-37); Albumin 3.6 g/dL (3.4-5.0); Alkaline Phosphatase 126 U/L (46-116); BUN 21 mg/dL (7-18); Bilirubin, Total 0.6 mg/dL (0.2-1.0); CREATININE 1.2 mg/dL (0.70-1.30); Calcium 9.7 mg/dL (8.5-10.1); Chloride 111 mmol/L (98-107); Estimated GFR 63.07 (mL/min/1.73m2); Glucose 103 mg/dL (74-106); Potassium 4.6 mmol/L (3.5-5.1); Sodium 146 mmol/L (136-145)
[2025-01-26 22:18] LABS: PSA, Ultrasensitive 0.37 ng/mL (<= 6.5)
== END 2025-01-25 01:32 | disposition home or self-care (01) ==
PROVIDERS: PCP Family Medicine; Visit Provider Internal Medicine
DX: C61 Malignant neoplasm of prostate (principal); C79.51 Secondary malignant neoplasm of bone
CPT/HCPCS: 36415; 80053; 84153; 84403; 85025

== ENCOUNTER 2025-06-12 03:49 | Outpatient (CLI) | payer MEDICARE, BC, SELFPAY ==
[2025-06-12 14:14] LABS: Abs Immature Grans 0.03 10^3/uL (0.0-0.06); HCT 40.6 % (40.0-50.0); HGB 13.7 g/dL (13.5-17.5); Immature Grans % 0.5 %; MCH 31.6 pg (27.0-33.0); MCHC 33.7 % (32.0-36.0); MCV 94 fL (80-95); MPV 9.9 fL (8.0-11.0); Platelet Count 156 10^3/uL (130-400); RBC 4.33 10^6/uL (4.36-5.78); RDW 12.7 % (11.8-14.1); RDW-SD 44.1 fL; WBC 6.13 10^3/uL (4.4-10.8)
[2025-06-12 14:39] LABS: ALT 25 U/L (16-63); AST 20 U/L (15-37); Albumin 3.6 g/dL (3.4-5.0); Alkaline Phosphatase 131 U/L (46-116); Anion Gap 7.6 mmol/L (3-11); BUN 18 mg/dL (7-18); Bilirubin, Total 0.3 mg/dL (0.2-1.0); CO2 26.4 mmol/L (21.0-32.0); Calcium 8.9 mg/dL (8.5-10.1); Chloride 105 mmol/L (98-107); Estimated GFR 70.01 (mL/min/1.73m2); Glucose 109 mg/dL (74-106); Potassium 4.4 mmol/L (3.5-5.1); Sodium 139 mmol/L (136-145); Total Protein 7.0 g/dL (6.4-8.2)
== END 2025-06-12 03:50 | disposition home or self-care (01) ==
PROVIDERS: PCP Family Medicine; Visit Provider Nurse Practitioner
DX: C61 Malignant neoplasm of prostate (principal)
CPT/HCPCS: 36415; 80053; 84153; 84403; 85025

== ENCOUNTER 2025-07-24 03:46 | Outpatient (CLI) | payer MEDICARE, BC, SELFPAY ==
[2025-07-24 08:17] LABS: Abs Immature Grans 0.03 10^3/uL (0.0-0.06); HCT 39.7 % (40.0-50.0); HGB 13.4 g/dL (13.5-17.5); Immature Grans % 0.5 %; MCH 31.6 pg (27.0-33.0); MCHC 33.8 % (32.0-36.0); MCV 94 fL (80-95); MPV 9.9 fL (8.0-11.0); Platelet Count 156 10^3/uL (130-400); RBC 4.24 10^6/uL (4.36-5.78); RDW 13.1 % (11.8-14.1); RDW-SD 45.2 fL; WBC 5.73 10^3/uL (4.4-10.8)
[2025-07-24 08:31] LABS: ALT 23 U/L (16-63); AST 20 U/L (15-37); Albumin 3.4 g/dL (3.4-5.0); Alkaline Phosphatase 141 U/L (46-116); Anion Gap 9.8 mmol/L (3-11); BUN 17 mg/dL (7-18); Bilirubin, Total 0.4 mg/dL (0.2-1.0); CO2 25.2 mmol/L (21.0-32.0); Calcium 9.0 mg/dL (8.5-10.1); Chloride 107 mmol/L (98-107); Estimated GFR 57.29 (mL/min/1.73m2); Glucose 136 mg/dL (74-106); Potassium 4.2 mmol/L (3.5-5.1); Sodium 142 mmol/L (136-145); Total Protein 6.9 g/dL (6.4-8.2)
== END 2025-07-24 03:47 | disposition home or self-care (01) ==
PROVIDERS: PCP Family Medicine; Visit Provider Nurse Practitioner
DX: C61 Malignant neoplasm of prostate (principal)
CPT/HCPCS: 36415; 80053; 84153; 85025

== ENCOUNTER 2025-07-24 15:14 | Outpatient (REF) | payer MEDICARE, BC, SELFPAY ==
[2025-07-24 15:44] LABS: TSH 8.00 uIU/mL (0.36-3.74)
== END 2025-07-24 15:15 | disposition home or self-care (01) ==
LOC: NCHCN 15:14
PROVIDERS: PCP Family Medicine; Visit Provider Family Medicine
DX: E02 Subclinical iodine-deficiency hypothyroidism (principal)
CPT/HCPCS: 84439; 84443

== ENCOUNTER 2025-08-02 04:07 | Outpatient (CLI) | payer MEDICARE, BC, SELFPAY ==
--- NOTE | 2025-08-02 | DI.RAD_ITS ---
Exam(s) XR CHEST 2V PA LATERAL EXAM: XR CHEST 2V PA LATERAL CLINICAL HISTORY: [facility] R06.09 TECHNIQUE: 2D digital imaging was performed. Two views. COMPARISON: CR CHEST 2 VIEWS PA,LAT from 08/27/[address] CHEST W from 07/29/[address] CHEST/ABD/PEL W from 12/15/2023 FINDINGS: HEART: Enlarged. Aorta: Mildly tortuous. PULMONARY VASCULATURE: Normal. MEDIASTINUM: Unremarkable. LUNGS: No evidence of focal infiltrate. There is vjvv-sp-qyorbgod diffuse interstitial changes PLEURAL SPACE: No pleural effusion or pneumothorax. BONE:Unremarkable for age. SOFT TISSUES: Unremarkable. IMPRESSION: Yzzj-yq-blsgdpts chronic interstitial changes. No acute abnormality. DATA REPOSITORY: RADIATION DOSE DELIVERED:
--- NOTE | 2025-08-02 08:30 | DI.US_ITS ---
APPROVED REPORT EXAM: Comprehensive 2D, Doppler, and color-flow Echocardiogram Patient Location: Out-Patient Quantitative Software Engineer: Falguni Irving RDCS (AE) Indications: A Fib Other Information Study Quality: Adequate. Technically limited study due to body habitus. Conclusion Normal left ventricular wall thickness and chamber size. Ejection fraction is 58%. Wall motion is normal Normal right ventricular size and function Moderately enlarged left atrium. Mildly dilated right atrium There are no structural valvular abnormalities Trace aortic regurgitation Trace to mild mitral regurgitation Trace tricuspid regurgitation. Estimated right ventricular systolic pressure is 26 mmHg Wall motion Left Ventricle The left ventricle is normal size. The left ventricular systolic function is normal. The left ventricular ejection fraction is within the normal range. There is normal left ventricular wall thickness. There is normal LV segmental wall motion. There is no ventricular septal defect visualized. LVEF is 58%. Right Ventricle The right ventricle is normal size. The right ventricular systolic function is normal. Atria Left atrium is moderately dilated. Right atrium is mildly dilated. The interatrial septum is intact with no evidence for an atrial septal defect. Aortic Valve The aortic valve is normal in structure. Aortic valve is trileaflet. There is no aortic valvular stenosis. Trace aortic regurgitation. Mitral Valve The mitral valve is normal in structure. No evidence of mitral valve stenosis. Trace to mild mitral regurgitation. Tricuspid Valve The tricuspid valve is normal in structure. There is no tricuspid valve stenosis. Trace tricuspid regurgitation. The RVSP is 26.5 mmHg. Pulmonic Valve The pulmonary valve is normal in structure. There is no pulmonic valvular stenosis. Trace pulmonic regurgitation. Great Vessels The aortic root is normal in size. The ascending aorta is normal in size. Aortic arch is normal in caliber. IVC is normal in size and collapses >50% with inspiration. Pericardium There is no pericardial effusion. 2D Dimensions IVSD d PLAX 1.05 cm M: 0.6-1.2 Ao Root d 3.20 cm M: 3.1 - 3.7 LVPW d PLAX 1.03 cm M: 0.6 - 1.2 Ao Asc Diam d 3.42 cm M: 2.6 - 3.4 LVID d PLAX 5.20 cm M: 4.2 - 5.8 LVDs 3.60 cm M: 2.5 - 4.0 LV EF Teichholz 58.0 % FS 30.79 % LV EDV (Teich) 129.4 mL LV ESV (Teich) 54.4 mL Auto EF LV EDV A4C 155.8 mL LV EDV A2C 177.7 mL LV EDV BP 167.0 mL LV ESV A4C 67.0 mL LV ESV A2C 77.1 mL LV ESV BP 73.0 mL LVEF(%) A4C 57.0 % LVEF(%) A2C 56.6 % LVEF(%) BP 56.3 % LV SV A4C 88.8 ml LV SV A2C 100.5 ml LV SV BP 94.0 ml LV CO A4C 5.7 L/min LV CO A2C 5.9 L/min LV CO BP 5.8 L/min HR A4C 64.18 BPM HR A2C 58.62 BPM LV EDV Index (BP) LA Volume LA Length A4C 7.6 cm LA Length A2C 7.7 cm LA Area A4C s 39.21 cm2 LA Area A2C s 36.65 cm2 LA Vol A4C A-L 171.50 mL LA Vol A2C A-L 148.81 mL LA Vol Biplane A-L 160.3 mL LA Vol/BSA A4C A-L LA Vol/BSA A2C A-L LA Vol/BSA BP A-L 60.7 mL/m2 LA Vol A4C MOD 151.8 mL LA Vol A2C MOD 140.8 mL LA Vol BP MOD 145.8 mL RA Volume RA Area A4C 27.5 cm2 RA ESV A4C (A-L) 93.7mL RA Vol/BSA A4C A-L RA Length A4C 6.8 cm RA ESV A4C (MOD) 90.3mL LV Diastology MV E' medial 0.102 (>0.07 m/s) MV E Vmax 1.01 (0.4-1.3 m/s) MV E' lateral 0.179 (>0.1 m/s) Aortic Valve AoV Vmax 1.62 m/s LVOT Vmax 1.22 m/s AoV Peak Grad 10.5 mmHg LVOT Peak Grad 6.0 mmHg AoV Area (Vmax) 3.25 cm2 LVOT VTI 0.274 m AoV VTI 0.379 m LVOT Mean Grad 3.6 mmHg AoV Mean Edgar. 1.17 m/s LVOT SV 117.89 mL AoV Mean Grad 6.3 mmHg LVOT Diam s 2.30 cm AoV Area (VTI) 3.11 cm2 AV Regurg Peak Gr. 10.47 mmHg Velocity Ratio 0.75 Mitral Valve MV Vmax TIPS 1.00 m/s MV Mean Grad 0.9 (<2mmHg) MV Area PHT 5.48 cm2 MV VTI 0.305 m Pulmonary Valve PV Vmax 1.44 (0.5-1.5 m/s) RVOT Vmax 0.62 m/s PV Peak Grad 8.3 mmHg RVOT Peak Gr. 1.5 mmHg PV Mean Edgar 1.00 m/s RVOT VTI 0.125 m PV Mean Grad 4.3 mmHg RVOT Mean Gr. 1.0 mmHg Tricuspid Valve RA Pressure 3.00 mmHg TR Vmax 2.43 m/s TV S' 0.19 m/s TR Peak Grad 23.5 mmHg RVSP (TR) 26.5 mmHg
== END 2025-08-02 04:27 ==
LOC: DI 04:07
PROVIDERS: PCP Family Medicine; Visit Provider Family Medicine
DX: I48.91 Unspecified atrial fibrillation (principal)
CPT/HCPCS: 93306; 71046

== ENCOUNTER 2025-08-17 16:30 | Outpatient (REF) | payer MEDICARE, BC, SELFPAY ==
[2025-08-17 21:06] LABS: HCT 39.0 % (40.0-50.0); HGB 12.8 g/dL (13.5-17.5); MCH 31.1 pg (27.0-33.0); MCHC 32.8 % (32.0-36.0); MCV 95 fL (80-95); MPV 10.5 fL (8.0-11.0); Platelet Count 142 10^3/uL (130-400); RBC 4.11 10^6/uL (4.36-5.78); RDW 13.9 % (11.8-14.1); RDW-SD 48.2 fL; WBC 11.02 10^3/uL (4.4-10.8)
[2025-08-17 21:24] LABS: ALT 26 U/L (16-63); AST 17 U/L (15-37); Albumin 3.5 g/dL (3.4-5.0); Alkaline Phosphatase 98 U/L (46-116); Anion Gap 9.5 mmol/L (3-11); BUN 17 mg/dL (7-18); Bilirubin, Total 0.6 mg/dL (0.2-1.0); CO2 26.5 mmol/L (21.0-32.0); Calcium 8.8 mg/dL (8.5-10.1); Chloride 105 mmol/L (98-107); Estimated GFR 48.25 (mL/min/1.73m2); Glucose 104 mg/dL (74-106); Potassium 3.9 mmol/L (3.5-5.1); Sodium 141 mmol/L (136-145); Total Protein 6.6 g/dL (6.4-8.2)
== END 2025-08-17 16:31 | disposition home or self-care (01) ==
LOC: NCHCN 16:30
PROVIDERS: PCP Family Medicine; Visit Provider Nurse Practitioner Family
DX: R53.81 Other malaise (principal); R53.83 Other fatigue
CPT/HCPCS: 80053; 85027

== ENCOUNTER 2025-10-02 01:44 | Outpatient (CLI) | payer MEDICARE, BC, SELFPAY ==
[2025-10-02 09:01] LABS: Abs Immature Grans 0.01 10^3/uL (0.0-0.06); HCT 40.4 % (40.0-50.0); HGB 13.6 g/dL (13.5-17.5); Immature Grans % 0.2 %; MCH 32.0 pg (27.0-33.0); MCHC 33.7 % (32.0-36.0); MCV 95 fL (80-95); MPV 9.6 fL (8.0-11.0); Platelet Count 165 10^3/uL (130-400); RBC 4.25 10^6/uL (4.36-5.78); RDW 13.2 % (11.8-14.1); RDW-SD 46.1 fL; WBC 4.81 10^3/uL (4.4-10.8)
[2025-10-02 09:24] LABS: ALT 15 U/L (10-49); AST 20 U/L (<34); Albumin 4.1 g/dL (3.4-5.0); Alkaline Phosphatase 104 U/L (46-116); Anion Gap 9.3 mmol/L (3-11); BUN 18 mg/dL (9-23); Bilirubin, Total 0.50 mg/dL (0.2-1.2); CO2 25.7 mmol/L (20.0-31.0); Calcium 9.0 mg/dL (8.3-10.6); Chloride 108 mmol/L (98-107); Glucose 104 mg/dL (74-106); Potassium 4.4 mmol/L (3.5-5.1); Sodium 143 mmol/L (136-145); Total Protein 6.9 g/dL (5.7-8.2)
== END 2025-10-02 01:45 | disposition home or self-care (01) ==
PROVIDERS: PCP Family Medicine; Visit Provider Nurse Practitioner Adult Health
DX: C61 Malignant neoplasm of prostate (principal)
CPT/HCPCS: 36415; 80053; 84153; 84403; 85025

== ENCOUNTER 2025-11-06 00:22 | Outpatient (CLI) | payer MEDICARE, BC, SELFPAY ==
[2025-11-06 11:25] LABS: Abs Immature Grans 0.02 10^3/uL (0.0-0.06); HCT 40.8 % (40.0-50.0); HGB 13.4 g/dL (13.5-17.5); Immature Grans % 0.3 %; MCH 30.9 pg (27.0-33.0); MCHC 32.8 % (32.0-36.0); MCV 94 fL (80-95); MPV 9.6 fL (8.0-11.0); Platelet Count 165 10^3/uL (130-400); RBC 4.34 10^6/uL (4.36-5.78); RDW 13.0 % (11.8-14.1); RDW-SD 45.1 fL; WBC 5.92 10^3/uL (4.4-10.8)
[2025-11-06 11:42] LABS: ALT 13 U/L (10-49); AST 19 U/L (<34); Albumin 4.2 g/dL (3.2-5.0); Alkaline Phosphatase 100 U/L (46-116); Anion Gap 8.2 mmol/L (3-11); BUN 18 mg/dL (9-23); Bilirubin, Total 0.4 mg/dL (0.2-1.2); CO2 26.8 mmol/L (20.0-31.0); Calcium 9.3 mg/dL (8.3-10.6); Chloride 109 mmol/L (98-107); Glucose 87 mg/dL (74-106); Potassium 4.3 mmol/L (3.5-5.1); Sodium 144 mmol/L (136-145); Total Protein 7.2 g/dL (5.7-8.2)
== END 2025-11-06 00:23 | disposition home or self-care (01) ==
PROVIDERS: PCP Family Medicine; Visit Provider Nurse Practitioner Adult Health
DX: C61 Malignant neoplasm of prostate (principal)
CPT/HCPCS: 36415; 80053; 84153; 84403; 85025